=== PATIENT | male | born 1960 | race Caucasian/White ===

== ENCOUNTER 2022-09-20 19:57 | Outpatient (OUT) | payer MEDICARE, SELFPAY | END 2022-09-20 19:58 | PROVIDERS: PCP Internal Medicine; Visit Provider Internal Medicine | DX: G47.33 Obstructive sleep apnea (adult) (pediatric) (principal) | CPT/HCPCS: 95810 ==

== ENCOUNTER 2022-10-31 20:38 | Outpatient (OUT) | payer MEDICARE, SELFPAY | END 2022-10-31 20:39 | disposition home or self-care (01) | LOC: SLEEP 20:38 | PROVIDERS: PCP Internal Medicine; Visit Provider Internal Medicine | DX: G47.33 Obstructive sleep apnea (adult) (pediatric) (principal) | CPT/HCPCS: 95811 ==

== ENCOUNTER 2023-04-05 11:14 | Outpatient (OUT) | payer MEDICARE, SELFPAY ==
[2023-04-05 11:35] LABS: Basophils Absolute Auto 0.1 10^3/uL (0.0-0.1); Basophils Percent Auto 0.6 % (0.2-2.0); Eosinophils Absolute Auto 0.2 10^3/uL (0.0-0.7); Eosinophils Percent Auto 1.4 % (0.9-7.0); Hemoglobin 15.7 g/dL (14.0-18.0); Immature Granulocytes Abs Auto 0.05 10^3/uL (0.00-0.03); Immature Granulocytes Pct Auto 0.4 % (0.0-0.5); Lymphocytes Absolute Auto 2.5 10^3/uL (1.2-3.8); Lymphocytes Percent Auto 20.8 % (20.5-60.0); Mean Corpuscular HGB Conc 32.7 g/dL (29.9-35.2); Mean Corpuscular Hemoglobin 34.2 pg (25.9-34.0); Mean Corpuscular Volume 104.6 fL (80.0-94.0); Mean Platelet Volume 10.4 fL (9.5-13.5); Monocytes Absolute Auto 0.9 10^3/uL (0.3-0.8); Monocytes Percent Auto 7.7 % (1.7-12.0); Neutrophils Absolute Auto 8.4 10^3/uL (1.4-6.5); Neutrophils Percent Auto 69.1 % (43.0-75.0); Platelet Count 226 10^3/uL (150-450); Red Blood Count 4.59 10^6/uL (4.70-6.10); Red Cell Distribution Width 12.8 % (11.0-15.0); White Blood Count 12.1 10^3/uL (4.0-11.0)
[2023-04-05 11:57] LABS: Anion Gap 14.3; BUN Creatinine Ratio 28.2; Calcium 9.8 mg/dL (8.5-10.1); Carbon Dioxide 24.3 mmol/L (21.0-32.0); Chloride 101 mmol/L (98-107); Estimated GFR (African America >60 (>=60); Estimated GFR (Non-African Ame 55 (>=60); Glucose 123 mg/dL (74-106); Potassium 4.6 mmol/L (3.5-5.1); Sodium 135 mmol/L (136-145)
== END 2023-04-05 11:15 | disposition home or self-care (01) ==
LOC: LAB 11:16
PROVIDERS: PCP Internal Medicine; Visit Provider Internal Medicine
DX: D62 Acute posthemorrhagic anemia (principal); I25.10 Atherosclerotic heart disease of native coronary artery without angina pectoris
CPT/HCPCS: 36415; 80048; 85025

== ENCOUNTER 2023-11-21 08:25 | Outpatient (OUT) | payer MEDICARE, SELFPAY ==
--- OUTSIDE RECORDS SUMMARY | 2023-11-21 08:46 | XMS_ITS | CCD ---
Author Organization [facility] Care Team Providers Care Information Technology Manager Name Role Phone Pcp, No Primary Care Provider UnavailColeman Santoyo DO Primary Care Provider Sarai Mendez II Unavailable Jonathan Samano Unavailable Melinda Verduzco Unavailable DO Coleman Brower Primary Care Provider MD Sarai Mendez II Attending Provider DO Coleman Brower Attending Provider DO Coleman Brower Primary Care Provider DO Coleman Brower Attending Provider MD Chio Nichole Attending Provider [phone] Chio Nichole Unavailable DO Coleman Brower Primary Care Provider MD Jonathan Samano Attending Provider DO Coleman Brower Primary Care Provider STEPHEN Guzman Emergency Provider Coleman Brower Unavailable DO Coleman Brower Primary Care Provider MD Jonathan Samano Attending Provider [phone] STEPHEN Guzman Emergency Provider RASHAD Verduzco Attending Provider Jonathan Shrestha Unavailable DR COLEMAN BROWER Attending Unavailable BALL, DR BURKS Primary Care Unavailable BALL, DR BURKS Admitting Unavailable INOCENTE, DR BURKS Primary Care Unavailable MISC, DR JERNIGAN Consulting Unavailable INOCENTE, DR BURKS Admitting Unavailable INOCENTE, DR BURKS Attending Unavailable BALL, DR BURKS Consulting Unavailable BALL, DR BURKS Primary Care Unavailable BALL, DR BURKS Admitting Unavailable BALL, DR BURKS Attending Unavailable BALL, DR BURKS Primary Care Unavailable BALL, DR BURKS Admitting Unavailable BALL, DR BURKS Attending Unavailable Ball, DO Coleman Primary Care Provider MD Sarai Mendez II Attending Provider MD Jonathan Samano Attending Provider Ball, DO Coleman Primary Care Provider MD Sarai Georges Attending Provider LOWELL Holbrook Emergency Provider Ball, DO Coleman Primary Care Provider MD Sarai Mendez II Attending Provider Melinda Verduzco CNP Unavailable Ball DO, Coleman E Primary Care Provider Ball, DO Coleman Primary Care Provider MD Sarai Mendez II Attending Provider Ball, DO Coleman Primary Care Provider MD Sarai Mendez II Attending Provider Sukhjinder Montesinos Unavailable Ball DO, Coleman E Primary Care Provider Ball, DO Coleman Primary Care Provider MD Sarai Mendez II Attending Provider RASHAD Verduzco Attending Provider CHHAYA WHATLEY Referring Unavailable BALL, COLEMAN E Primary Care Unavailable BALL, COLEMAN E Primary Care Unavailable DAVID DWYER Attending Unavailable THERESA PRAKASH Attending Unavailabl THERESA Melgar Referring Unavailabl e BALL, COLEMAN E Primary Care Unavailable SARAI VELASCO Attending Unavailable BALL, COLEMAN E Referring Unavailable BALL, COLEMAN E Primary Care Unavailable Ball, DO Coleman Primary Care Provider MD Sarai Mendez II Attending Provider RASHAD Verduzco Attending Provider PROVIDER, UNKNOWN Referring Unavailable BALL, COLEMAN E Primary Care Unavailable Ball DO, Coleman E Primary Care Provider MD Antonio Mora Attending Provider MD Antonio Mora Referring Provider Ball DO, Coleman E Primary Care Provider Ball, DO Coleman Primary Care Provider MD Erin Suresh Emergency Provider MD Elliott Talley Admit Provider MD Elliott Talley Attending Provider [phone] MD Sally Alex Attending Provider Ball DO, Coleman E Primary Care Provider BALL, COLEMAN E Primary Care Unavailable BALL, COLEMAN E Primary Care Unavailable MIRIAM HELADIO Attending Unavailable BALL, COLEMAN E Primary Care Unavailable MIRIAM, HELADIO Referring Unavailable MIRIAMMARIHELADIO Attending Unavailable BALL, COLEMAN E Primary Care Unavailable MIRIAM, HELADIO Referring Unavailable MIRIAM, HELADIO Attending Unavailable BALL, COLEMAN E Primary Care Unavailable BALL, COLEMAN E Primary Care Unavailable MIRIAM, HELADIO Referring Unavailable BALL, COLEMAN E Primary Care Unavailable MIRIAM, HELADIO Referring Unavailable SANTOS ACBRERA Attending Unavailable Andrea MULLINS, Sarai Antunez Attending Unavailabl e Andrea II, Sarai Antunez Admitting Unavailabl e Ball, Coleman Primary Care Unavailable Damien Holbrook Admitting Unavailable Damien Holbrook Attending Unavailable Ball, Coleman Primary Care Unavailable Andrea II, Sarai Antunez Attending Unavailabl e [place] II, Sarai Antunez Admitting Unavailabl e Ball, Coleman Primary Care Unavailable Andrea HARPREET, Sarai Antunez Attending Unavailabl e Andrea II, Sarai Antunez Admitting Unavailabl e Ball, Coleman Primary Care Unavailable Melinda Verduzco Admitting Unavailable Melinda Verduzco Attending Unavailable Ball, Coleman Primary Care Unavailable Ball, Coleman Primary Care Unavailable Sarai Georges Admitting Unavailable Sarai Georges Attending Unavailable Andrea II, Sarai Antunez Attending Unavailabl e [place] II, Sarai Antunez Admitting Unavailabl e Ball, Coleman Primary Care Unavailable AndreaSarai velasquez II M Attending Unavailabl e Andrea II, Sarai Antunez Admitting Unavailabl e Ball, Coleman Primary Care Unavailable Traboulssi, Mourhaf Admitting Unavailable Traboulssi, Mojoellef Attending Unavailable Traboulssi, Mourhaf Referring Unavailable Ball, Coleman Primary Care Unavailable Andrea MULLINS, Sarai Antunez Attending Unavailabl e [place] II, Sarai Antunez Admitting Unavailabl e Ball, Coleman Primary Care Unavailable Sally Alex Attending Unavailable DoamekpElliott alvarez Admitting Unavailab le Ball, Coleman Primary Care Unavailable Andrea II, Sarai Antunez Attending Unavailabl e [place] II, Sarai Antunez Admitting Unavailabl e Ball, Coleman Primary Care Unavailable TRABOULSSI, MOJOELLEF Attending Unavailable BALL, COLEMAN E Primary Care Unavailable TRABOULSSI, MOURHAF Referring Unavailable BALL, COLMEAN E Primary Care Unavailable TRABOULSSI, MOURHAF Attending Unavailable TRABOULSSI, MOURHAF Referring Unavailable BALL, OCLEMAN E Primary Care Unavailable Inocente, DO Coleman Primary Care Provider Allergies Allergy Classification Reported Allergen(s) Allergy Type Date of Onset Reaction(s) Facility (20 sources) Acetaminophen / oxyCODONE Drug Allergy Unknown [facility] [employer] Other (20 sources) atorvastatin Drug Allergy 05-07-19 24 Unknown, Unknown Reaction [facility] (20 sources) predniSONE; 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: [prednisone] Drug Allergy 01-27-20 23 Other, Headache [facility] (20 sources) Simvastatin Drug Allergy 01-02-20 13 Unknown [facility] [employer] Other (1 source) patient allergy list reviewed by nurse or physicia Propensity to adverse reactions 02-18-20 13 Comment:Done [facility] [employer] Other (4 sources) Acetaminophen; 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: [acetaminophen] Drug Allergy 05-07-19 Unknown Reaction [facility] (4 sources) oxyCODONE; 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: [oxycodone] Drug Allergy 05-07-19 Unknown Reaction [facility] (1 source) atorvastatin Drug Allergy 05-07-19 [facility] Repository Medications Current Medications Medication Drug Class(es) Dates Sig (Normalized) Sig (Original) 0.5 ML semaglutide 0.5 MG/ML Auto-Injector [Wegovy] (15 sources) Start: 10-03-2022 Start: 10-03-2022 inject 0.5 mL by sub cutaneous injection every week Wegovy 0.25 MG/0.5ML 0.5 mL Subcutaneous weekly for 30 days Sep, Active acetaminophen 500 mg oral tablet (20 sources) Start: 01-31-2023 take 2 tablets by mouth every eight hours for pain Acetaminophen 500 MG 2 tablets for pain Orally every 8 hrs for 30 days Med to Bed Upon Discharge DOS: 02/13/2023 Jan, Active Start: 06-17-2021 take 2 tablets by mo uth every eight hours for pain Acetaminophen 500 MG 2 tablets for pain Orally every 8 hrs for 30 days MED TO BED UPON DISCHARGE. DOS: 07/04/2021 Jun, Active Start: 01-29-2017 End: 02-13-2023 Acetaminophen (Tylenol Arthr itis Pain) 650 mg Tablet Extended Release Discontinued 1300 MG PO Twice daily January 29, 2017 12:00am February 13, 2023 10:43am AeroChamber Mini Chamber - (8 sources) Start: 08-25-2022 Start: 08-25-2022 AeroChamber Mi ni Chamber - Use w/ Albuterol MDI inhaled every 6 hours as needed for 30 days August, Active allopurinol 100 mg oral tablet (20 sources) Xanthine Oxidase Inhibitor Start: 06-20-2021 take 100 mg by mouth once daily in the morning Allopurinol Active 100 MG PO Every morning June 20, 2021 12:00am Comment on above: Take 1 tablet by milton th every afternoon. amoxicillin 500 mg oral capsule (4 sources) Penicillin-class Antibacterial Start: 12-19-2018 Amoxicillin 500 MG 6 po 1 hour prior to dental and 3 po 6 hours after dental Orally as directed for 1 day Dec, Active apixaban 5 mg oral tablet (20 sources) Factor Xa Inhibitor Start: 06-24-2023 take 1 tablet by mouth once daily at bedtime ELIQUIS 5 mg tab(s) TAKE 1 TABLET BY MOUTH EVERY MORNING AND BEFORE BEDTIME FOR 30 DAYS 0 06/24/2023 Active Start: 05-18-2023 take 5 mg by mouth twice daily Apixaban Active 5 MG PO Twice daily June 28, 2023 12:00am Start: 05-18-2023 take 1 tablet by milton th in the morning, then take 1 tablet by mouth at bedtime ELIQUIS 5 mg tablet Take 1 tablet (5 mg total) by mouth in the morning and 1 tablet (5 mg total) before bedtime. 0 05/18/2023 Active take 1 tablet by milton th every twelve hours Eliquis 5 MG 1 tablet Orally Twice a day Active Comment on above: TAKE 1 TABLET BY MILTON TH EVERY MORNING AND BEFORE BEDTIME FOR 30 DAYS Aspir-81 (20 sources) Aspir-81 Active Aspir-81 81 MG (20 sources) take 1 tablet by milton th once daily take 1 tablet by mouth once anamaria y Aspir-81 81 MG 1 tablet Orally Once a day Active aspirin 81 mg oral tablet (20 sources) Platelet Aggregation Inhibitor, Nonsteroidal Anti-inflammatory Drug Start: 06-17-2021 take 1 tablet by mouth twice daily Aspirin 81 MG 1 tablet Orally BID for 35 days MED TO BED UPON DISCHARGE. DOS: 07/04/2021 Jun, Active Start: 01-29-2017 take 81 mg by mouth once daily Aspirin Active 81 MG PO Daily January 29, 2017 12:00am Comment on above: Take 81 mg by mouth. atorvastatin 80 mg oral tablet (20 sources) HMG-CoA Reductase Inhibitor Start: 4 take 1 tablet by mouth once daily in the evening Atorvastatin Active 0 .ROUTE .COMPLEX 90 September 19, 2023 12:53pm TAKE 1 TABLET BY MOUTH ONCE EVERY EVENING Start: 01-29-2017 End: 09-19-2023 take 1 tablet by mouth once daily at bedtime Atorvastatin (Lipitor) 80 mg Tablet Discontinued 80 MG PO Daily at bedtime January 29, 2017 12:00am September 19, 2023 12:53pm End: 01-05-2023 take 1 tablet by mouth three times weekly atorvastatin 10 mg tablet Take 10 mg by mouth 3 times a WEEK. 0 01/05/2023 Discontinued (Course of therapy completed) Comment on above: Take 10 mg by mouth 3 times a WEEK. cefadroxil 500 mg oral capsule (10 sources) Cephalosporin Antibacterial Start: 3 take 1 capsule by mouth every twelve hours Cefadroxil 500 MG 1 tablet Orally every 12 hrs for 7 days Med to Bed Upon Discharge DOS: 02/13/2023 Jan, Active Start: 06-17-2021 take 1 capsule by mo [facility] every twelve hours Cefadroxil 500 MG 1 tablet Orally every 12 hrs for 7 days MED TO BED UPON DISCHARGE. DOS: 07/04/2021 Jun, Active cholecalciferol 0.05 mg oral tablet (1 source) Vitamin D Start: 08-02-2023 take 1 tablet by mouth once Cholecalciferol (Vitamin D3) (D3 Dots) 50 mcg (2,000 unit) tablet Active 50 MCG PO every Sunday and July 12:00am codeine phosphate 2 mg/ml / guaiFENesin 20 mg/ml oral solution (2 sources) Opioid Agonist Start: 08-25-2022 take 10 mL by mouth once at bedtime as needed for cough guaiFENesin-Codeine 100-10 MG/5ML 10 mL as needed Orally q HS as needed for cough for 7 days August, Active colchicine 0.6 mg oral capsule (14 sources) Start: 08-02-2023 take 0.6 mg by mouth every other day Colchicine Active 0.6 MG PO .every other day August 02, 2023 12:00am Start: 08-02-2023 take 0.6 mg by mouth once anamaria y Colchicine Active 0.6 MG PO Daily August 02, 2023 12:00am Start: 07-05-2023 take 1 tablet by milton twice daily colchicine 0.6 mg tablet Indications: Idiopathic chronic gout of multiple sites without tophus Take 1tab by mouth up to twice a day as tolerated. May cause diarrhea. 60 tablet 3 07/05/2023 Active Start: 02-07-2010 take 1 tablet by milton once daily colchicine 0.6 mg ORAL tablet Indications: Pseudogout , Knee pain , Knee swelling Take one(1) tablet daily. 60 Tab 0 02/07/2010 Active Comment on above: Take one(1) tablet d aily. Take 1tab by mouth u p to twice a day as tolerated. May cause diarrhea. docusate sodium 50 mg / sennosides, snf 8.6 mg oral tablet (10 sources) Start: 01-31-2023 take 2 tablets by mouth every twenty-four hours Senokot S 8.6-50 MG 2 tablets Orally Once a day for 30 days Med to Bed Upon Discharge DOS: 02/13/2023 Jan, Active Start: 06-17-2021 take 2 tablets by mo uth every twenty-four hours Senokot S 8.6-50 MG 2 tablets Orally Once a day for 30 day(s) MED TO BED UPON DISCHARGE. DOS: 07/04/2021 Jun, Active doxycycline hyclate 100 mg oral capsule (20 sources) Tetracycline-class Drug Start: 03-29-2023 take 1 capsule by mouth every twelve hours Doxycycline Hyclate 100 MG 1 capsule Orally Twice a day for 7 days Mar, Active Start: 03-07-2023 [facility] Doxycycline Hyclate 100 MG 1 tablet Orally Twice a day for 14 days Feb, Active Start: 10-25-2022 take 1 capsule by mo uth twice daily Doxycycline Hyclate 100 MG 1 capsule Orally twice daily for 10 days Jan, Active Start: 05-29-2022 take 1 capsule by mo uth twice daily Doxycycline Hyclate 100 MG 1 capsule Orally twice daily for 7 days August, Active ergocalciferol 1.25 mg oral capsule (20 sources) Provitamin D2 Compound Start: 07-09-2023 ergocalciferol 50,00 0 unit capsule (VITAMIN D2, DRISDOL) Indications: Vitamin D deficiency (take by mouth with food twice a week, ONE CAPSULE ON SUNDAY AND ONE ON SUNDAY) FOR A TOTAL OF 8 WEEKS. 16 capsule 0 07/09/2023 Active Start: 11-22-2022 take 1 capsule by mo uth every week as needed Ergocalciferol 1.25 MG (01128 UT) 1 capsule Orally Once a Week for 60 days Nov, Not-Taking/PRN Start: 03-25-2021 take 1 capsule by mo uth every week Vitamin D (Ergocalciferol) 1.25 MG (30147 UT) 1 capsule Orally once weekly for 8 weeks Mar, Active Comment on above: (take by mouth with food twice a week, ONE CAPSULE ON SUNDAY AND ONE ON SUNDAY) FOR A TOTAL OF 8 WEEKS. escitalopram 20 mg oral tablet (20 sources) Serotonin Reuptake Inhibitor Start: take 20 mg by mouth once daily Escitalopram Oxalate Active 20 MG PO Daily 90 June 29, 2023 10:35am Start: 06-28-2023 End: 06-29-2023 take 1 tablet by mouth once daily Escitalopram Oxalate Discontinued 0 .ROUTE .COMPLEX June 28, 2023 3:06pm June 29, 2023 10:36am TAKE 1 TABLET BY MOUTH EVERY DAY FOR 90 DAYS Start: 08-09-2022 End: 06-28-2023 take 10 mg by mouth once daily at bedtime Escitalopram Oxalate Discontinued 10 MG PO Daily at bedtime January 26, 2023 12:00am June 28, 2023 3:07pm Comment on above: Take 1 tablet by milton th every afternoon. famotidine 20 mg oral tablet (11 sources) Histamine-2 Receptor Antagonist take 1 tablet by mouth every twenty-four hours Famotidine 20 MG 1 tablet at bedtime as needed Orally Once a day Active guaiFENesin-Codeine 200-10 MG/5ML (17 sources) take 10 mL by mouth every six hours as needed for cough take 10 mL by mouth every six hours as needed for cough guaiFENesin-Codeine 200-10 MG/5ML 10 mL as needed Orally every 6 hours as needed for cough for 7 days Not-Taking take 10 mL by mouth every six hours as needed for cough guaiFENesin-Codeine 200-10 MG/5ML 10 mL as needed Orally every 6 hours as needed for cough for 7 days Active hydroCHLOROthiazide 25 mg / spironolactone 25 mg oral tablet (20 sources) Thiazide Diuretic, Aldosterone Antagonist Start: 01-02-2023 take 1 tablet by mouth once daily in the morning spironolactone-hctz 25/25 (ALDACTAZIDE) 25-25 mg per tablet Take 1 tablet by mouth every morning. 0 01/25/2023 Active Comment on above: Take 1 tablet by milton th every morning. levothyroxine sodium 0.15 mg oral tablet (20 sources) l-Thyroxine Start: 06-20-2021 take 1 tablet by mouth once daily in the morning Levothyroxine (Synthroid) 150 mcg tablet Active 150 MCG PO Every morning June 20, 2021 12:00am Start: 01-29-2017 End: 06-20-2021 take 1 tablet by mouth once daily Levothyroxine (Synthroid) 25 mcg Tablet Discontinued 25 MCG PO Daily January 29, 2017 12:00am June 20, 2021 1:26pm take 1 tablet by milton th in the morning levothyroxine (SYNTHROID, LEVOTHROID) 200 MCG tablet Take 1 tablet (200 mcg total) by mouth in the morning. 0 Active take 1 tablet by milton th once daily Levothyroxine Sodium 150 MCG TAKE 1 TABLET BY MOUTH EVERY DAY Active End: 01-05-2023 take 1 tablet by mouth once daily levothyroxine (SYNTHROID) 175 mcg tablet Take 175 mcg by mouth once daily. 0 01/05/2023 Discontinued (Course of therapy completed) take 1 tablet by milton th every twenty-four hours Comment on above: Take 1 tablet by milton th every afternoon. Take 175 mcg by mout h once daily. Magic Mouthwash (5 sources) Magic Mouthwash Active magnesium oxide 400 mg oral tablet (11 sources) Start: 06-13-2023 magnesium oxide (MAG-OX) 400 mg (241.3 mg magnesium) tablet Take 400 mg by mouth. 0 06/13/2023 Active Start: 05-02-2023 take 1 tablet by milton th every twenty-four hours Magnesium Oxide 400 MG 1 tablet as needed Orally Once a day for 30 days Apr, Active Comment on above: Take 400 mg by mouth . methylPREDNISolone 4 mg oral tablet (20 sources) Corticosteroid Start: 09-05-19 methylPREDNISolone (MEDROL) 4 mg Indications: Elevated sed rate , Elevated C-reactive protein (CRP) , PMR (polymyalgia rheumatica) ([facility]) Day 1=6tabs with food, Day 2=5tabs, Day 3=4tabs, Day 4=3tabs, Day 5=2tabs, Day 6=1tab, No NSAIDs on med 21 tablet 1 09/05/2023 Active Start: 07-05-2023 End: 09-05-2023 take 1 tablet by mouth every other day Methylprednisolone (Medrol) 4 mg tablet Active 4 MG PO Q2D August 01, 2023 12:00am Start: 06-28-2023 methylPREDNISo lone (MEDROL) 4 mg Indications: PMR (polymyalgia rheumatica) ([facility]) , Elevated sed rate , Elevated C-reactive protein (CRP) ALTERNATE 1 TABLET AND 1/2 TABLET BY MOUTH EVERY OTHER DAY 30 tablet 0 06/28/2023 Active Start: 03-05-2023 methylPREDNISo lone (MEDROL) 2 mg tablet Indications: PMR (polymyalgia rheumatica) ([facility]) , Elevated sed rate , Elevated C-reactive protein (CRP) Alternate 4mg and 2mg every other day 60 tablet 1 03/05/2023 Active Start: 11-23-2022 End: 06-06-2023 take 4 mg by mouth once daily in the morning Methylprednisolone Discontinued 4 MG PO Every morning January 26, 2023 12:00am June 06, 2023 2:35pm take 1 tablet by milton th once daily methylPREDNISolone 2 MG 1 tablet w/ food Orally daily for 14 days Active Comment on above: TAKE 1 TABLET BY MILTON TH WITH FOOD DAILY TAKE 1 TABLET BY MILTON TH WITH FOOD DAILY FOR 14 DAYS take 1 tablet by milton th every day with food Alternate 4mg and 2m g every other day ALTERNATE 1 TABLET A ND 1/2 TABLET BY MOUTH EVERY OTHER DAY 4 TABLET BY MOUTH EV RANDOLPH OTHER DAY 24 hr metoprolol succinate 50 mg extended release oral tablet (20 sources) beta-Adrenergic Riri Start: 12-29-2022 take 1 tablet by mouth every hour metoprolol succinate ER (TOPROL XL) 50 mg 24 hr tablet Take 1 tablet by mouth every afternoon. 0 12/29/2022 Active Start: 02-09-2021 take 50 mg by mouth once daily in the morning Metoprolol Succinate Active 50 MG PO Every morning June 20, 2021 12:00am Start: 01-29-2017 End: 06-20-2021 take 1 tablet by mouth once daily Metoprolol Succinate (Toprol Xl) 25 mg Tablet Extended Release 24 Hr Discontinued 25 MG PO Daily January 29, 2017 12:00am June 20, 2021 1:27pm Metoprolol Tartr ate 25 MG (Prior Auth: Rx Ref#:[id number]) Oral for 90 Active Comment on above: Take 1 tablet by milton th every afternoon. morphine sulfate 15 mg extended release oral tablet (10 sources) Opioid Agonist Start: 02-01-2023 take 1 tablet by mouth every twelve hours for pain Morphine Sulfate ER 15 MG 1 tablet for breakthrough pain only Orally every 12 hrs for 5 days Med to Bed Upon Discharge DOS: 02/13/2023 Jan, Active Start: 06-17-2021 take 1 tablet by milton th every twelve hours for pain Morphine Sulfate ER 15 MG 1 tablet for breakthrough pain only Orally every 12 hrs for 5 days MED TO BED UPON DISCHARGE. DOS: 07/04/2021 Jun, Active omeprazole 40 mg delayed release oral capsule (11 sources) Proton Pump Inhibitor take 1 capsule by mouth once daily Omeprazole 40 MG 1 capsule 30 minutes before morning meal Orally Once a day Active ondansetron 8 mg oral tablet (12 sources) Serotonin-3 Receptor Antagonist Start: take 1 tablet by mouth three times daily as needed for nausea Ondansetron HCl 8 MG 1 tablet as needed for nausea Orally Three times a day for 10 days Med to Bed Upon Discharge DOS: 02/13/2023 Jan, Active Start: 06-17-2021 take 1 tablet by milton th three times daily as needed for nausea Ondansetron HCl 8 MG 1 tablet as needed for nausea Orally TID for 10 days MED TO BED UPON DISCHARGE. DOS: 07/04/2021 Jun, Active oxyCODONE hydrochloride 5 mg oral tablet (10 sources) Opioid Agonist Start: 02-01-2023 take 1 tablet by mouth every four hours as needed for pain oxyCODONE HCl 5 MG 1 tablet as needed for pain Orally every 4 hrs for 10 days Med to Bed Upon Discharge DOS: 02/13/2023 Jan, Active Start: 06-17-2021 take 1 tablet by milton th every four hours as needed for pain oxyCODONE HCl 5 MG 1 tablet as needed for pain Orally every 4 hrs for 10 days MED TO BED UPON DISCHARGE. DOS: 07/04/2021 Jun, Active pantoprazole 20 mg delayed release oral tablet (9 sources) Proton Pump Inhibitor Start: 01-31-2023 take 1 tablet by mouth every twenty-four hours Protonix 20 MG 1 tablet Orally Once a day for 30 days Jan, Active paxlovid (300/100) 20 x 150 mg & 10 x 100mg tablet therapy pack (2 sources) Start: 04-12-2023 Paxlovid (300/100) 20 x 150 MG & 10 x 100MG as directed Orally bid for 5 days Apr, Active polyethylene glycol 3350 45427 mg powder for oral solution (10 sources) Osmotic Laxative Start: 01-31-2023 MiraLax 17 GM 1 packet mixed with 8 ounces of fluid Orally Once a day for 7 days Med to Bed Upon Discharge DOS: 02/13/2023 Jan, Active Start: 06-17-2021 MiraLax 17 GM 1 packet mixed with 8 ounces of fluid Orally Once a day for 7 days MED TO BED UPON DISCHARGE. DOS: 07/04/2021 Jun, Active predniSONE 20 mg oral tablet (13 sources) Start: 08-01-2022 take 1 tablet by mouth once daily predniSONE 20 MG 1 tablet Orally Daily w/ food for 7 days Jul, Active predniSONE Activ e rivaroxaban 10 mg oral tablet (16 sources) Factor Xa Inhibitor Start: 01-31-2023 End: 03-05-2023 take 1 tablet by mouth every twenty-four hours Xarelto 10 MG 1 tablet with food Orally Once a day for 35 days Med to Bed Upon Discharge DOS: 02/13/2023 Jan, Active Xarelto Active Comment on above: TAKE 1 TABLET BY MILTON TH ONCE A DAY WITH FOOD sildenafil 100 mg oral tablet (20 sources) Phosphodiesterase 5 Inhibitor Start: take 100 mg by mouth once daily Sildenafil Active 100 MG PO Daily June 28, 2023 12:00am Start: 10-03-2022 take 1 tablet by milton th once daily as needed Sildenafil Citrate 100 MG 1 tablet as needed Orally Once a day as needed for 30 days Sep, Active traMADol hydrochloride 50 mg oral tablet (10 sources) Opioid Agonist Start: 02-01-2023 take 1 tablet by mouth every six hours as needed for pain traMADol HCl 50 MG 1 tablet as needed for pain Orally every 6 hrs for 10 days Med to Bed Upon Discharge DOS: 02/13/2023 Jan, Active Start: 06-17-2021 take 1 tablet by milton th every six hours as needed for pain traMADol HCl 50 MG 1 tablet as needed for pain Orally every 6 hrs for 10 days MED TO BED UPON DISCHARGE. DOS: 07/04/2021 Jun, Active valACYclovir 500 mg oral tablet (20 sources) Herpesvirus Nucleoside Analog DNA Polymerase Inhibitor, Herpes Simplex Virus Nucleoside Analog DNA Polymerase Inhibitor, Herpes Zoster Virus Nucleoside Analog DNA Polymerase Inhibitor Start: 06-20-2021 take 500 mg by mouth once daily in the morning Valacyclovir Active 500 MG PO Every morning June 20, 2021 12:00am Comment on above: Take 1 tablet by milton every afternoon. Completed/Discontinued Medications Medication Drug Class(es) Dates Sig (Normalized) Sig (Original) acetaminophen 325 mg / oxyCODONE hydrochloride 5 mg oral tablet (20 sources) Opioid Agonist Start: 05-22-2022 End: 01-26-2023 take 1 tablet by mouth every eight hours Oxycodone-Acetamin ophen (Percocet) 5-325 mg tablet Discontinued 1 TAB PO Q8H 10 May 22, 2022 January 26, 2023 11:02am [id number] 200 actuat albuterol 0.09 mg/actuat metered dose inhaler (20 sources) beta2-Adrenergic Agonist Start: 06-28-2023 End: 08-02-2023 take 1 puff(s) by inhalation every six hours Albuterol Sulfate Discontinued 2 PUFF INHALATION Every 6 hours June 28, 2023 12:00am August 02, 2023 9:18am Start: 09-16-2022 take 2 puff(s) by mo uth every six hours albuterol HFA (PROVENTIL HFA, VENTOLIN HFA) 90 mcg/actuation inhaler inhale 2 puffs by mouth every 6 hours 0 09/16/2022 Active Start: 08-25-2022 take 2 puff(s) by in halation every six hours Albuterol Sulfate HFA 108 (90 Base) MCG/ACT 2 puffs Inhalation every 6 hours for 30 days August, Active Start: 08-25-2022 take 2 puff(s) by mo uth every six hours Albuterol Sulfate HFA 108 (90 Base) MCG/ACT INHALE 2 PUFFS BY MOUTH EVERY 6 HOURS for 25 Active Comment on above: inhale 2 puffs by mo uth every 6 hours ALPRAZolam 0.5 mg oral tablet (20 sources) Benzodiazepine Start: 12-13-19 End: 06-04-19 take 0.5 mg by mouth once daily at bedtime Alprazolam Discontinued 0.5 MG PO Daily at bedtime June 04, 2023 1:00am June 04, 2023 1:22pm Start: 06-09-2022 ALPRAZolam 0.5 MG TAKE 1 TABLET BY MOUTH EVERY DAY AT BEDTIME Orally Once A Day for 90 days Jun, Active Start: 04-16-2022 take 1 tablet by milton th once daily at bedtime ALPRAZolam 0.5 MG TAKE 1 TABLET BY MOUTH EVERY DAY AT BEDTIME for 30 Apr, Active Start: 10-25-2012 End: 06-04-2023 take 1 tablet by mouth once daily at bedtime Alprazolam (Xanax) 0.25 mg Tablet Discontinued 0.25 MG PO Daily at bedtime January 29, 2017 12:00am June 04, 2023 1:08pm Comment on above: Take 0.5 mg by mouth daily at bedtime. Take 1 tablet by milton th at bedtime as needed. amoxicillin 875 mg / clavulanate 125 mg oral tablet (4 sources) Penicillin-class Antibacterial Start: 4 End: 4 take 1 tablet by mouth twice daily Amoxicillin-Pot Clavulanate Discontinued 1 TAB PO Twice daily 14 September 01, 2023 10:30am November 19, 2023 2:23pm atenolol 25 mg oral tablet (1 source) beta-Adrenergic Riri Start: 3 End: 3 take 1 tablet by mouth once daily atenolol 25 mg tablet Take 1 tablet by mouth once daily. 0 10/25/2012 01/05/2023 Discontinued (Course of therapy completed) Comment on above: Take 1 tablet by milton th once daily. celecoxib 200 mg oral capsule (20 sources) Nonsteroidal Anti-inflammatory Drug Start: 2 End: 4 take 200 mg by mouth once daily Celecoxib Discontinued 200 MG PO Daily June 28, 2023 12:00am June 28, 2023 4:15pm Start: 06-17-2021 take 1 capsule by mo [facility] every twelve hours Celecoxib 200 MG 1 capsule with food Orally Twice a day for 30 day(s) MED TO BED UPON DISCHARGE. DOS: 07/04/2021 Jun, Active Comment on above: Take 1 capsule by mo [facility] every afternoon. clopidogrel 75 mg oral tablet (4 sources) [id number] Platelet Inhibitor End: 03-05-20 23 take 1 tablet by mouth once daily clopidogrel (PLAVIX) 75 mg ORAL tablet Take one(1) tablet daily. 0 03/05/2023 Discontinued (Course of therapy completed) Comment on above: Take one(1) tablet d aily. diazePAM 5 mg oral tablet (20 sources) Benzodiazepine Start: 06-28-19 End: 08-02-19 take 5 mg by mouth once daily Diazepam Discontinued 5 MG PO Daily June 28, 2023 12:00am August 02, 2023 9:17am Start: 06-12-2022 Valium 5 MG ta ke 1 tablet 1/2 hour prior to MRI . May repeat if needed. Orally Jun, Active take 1 tablet by milton th every twenty-four hours diazePAM 5 MG 1 tablet as needed Orally Once a day Active hydroCHLOROthiazide 25 mg / triamterene 37.5 mg oral capsule (20 sources) Potassium-sparing Diuretic, Thiazide Diuretic Start: 06-20-2021 End: 06-28-2023 take 1 capsule by mouth once daily in the morning Triamterene-Hydrochlorothiazid Discontinued 1 CAP PO Every morning June 20, 2021 12:00am June 28, 2023 4:16pm take 1 capsule by mouth every tw enty-four hours Comment on above: TAKE 1 CAPSULE BY MO [facility] EVERY DAY IN THE MORNING FOR 30 DAYS irbesartan 150 mg oral tablet (20 sources) Angiotensin 2 Receptor Riri Start: 2 End: 4 take 150 mg by mouth once daily in the morning Irbesartan Discontinued 150 MG PO Every morning June 20, 2021 12:00am June 28, 2023 4:16pm lisinopril 10 mg oral tablet (20 sources) Angiotensin Converting Enzyme Inhibitor Start: 7 End: 2 take 10 mg by mouth once daily Lisinopril Discontinued 10 MG PO Daily January 29, 2017 12:00am June 20, 2021 1:24pm take 1 tablet by milton th every twenty-four hours Lisinopril 20 MG 1 tablet Orally Once a day Active meloxicam 7.5 mg oral tablet (4 sources) Nonsteroidal Anti-inflammatory Drug Start: 11-17-2013 End: 03-05-2023 take 1 tablet by mouth once daily meloxicam 7.5 mg tablet Take 1 tablet by mouth once daily. 30 tablet 1 11/17/2013 03/05/2023 Discontinued (Course of therapy completed) Comment on above: Take 1 tablet by mouth once daily. mupirocin 0.02 mg/mg topical ointment (20 sources) RNA Synthetase Inhibitor Antibacterial Start: 06-28-2023 End: 08-02-2023 Mupirocin Discontinued 1 APPLIC TOPICAL Twice daily June 28, 2023 12:00am August 02, 2023 9:18am Start: 10-25-2022 Mupirocin 2 % 1 application Externally Twice a day for 10 days Jan, Active triamcinolone acetonide 40 mg/ml injectable suspension (20 sources) Corticosteroid Start: 08-22-2022 Kenalog-40 August, 60 mg Start: 09-12-2021 Kenalog-40 Feb, 40 mg Start: 09-12-2021 Start: 05-23-2021 Start: 05-23-2021 Kenalog -40 mg May, 40 mg Start: 05-07-2020 Start: 05-07-2020 Kenalog -40 mg Apr, 40 mg Start: 11-03-2019 Start: 11-03-2019 Kenalog -40 mg Oct, 40 mg Start: 05-19-2019 Start: 05-19-2019 Kenalog -40 mg May, 10 mg Start: 04-08-2018 Start: 04-08-2018 Kenalog -40 mg Mar, 40 mg Start: 04-16-2017 Start: 04-16-2017 Kenalog -40 mg Apr, Start: 05-23-2016 Start: 05-23-2016 Kenalog -40 mg May, Problems Active Problems Problem Classification Problem Date Documented Da te Episodic/Chronic Abdominal pain (20 sources) Indigestion; 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: [Epigastric pain] Onset: 7 Episodic Acute bronchitis (6 sources) Acute bronchitis due to other specified organisms; 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: [Acute bronchitis] Onset: 5 Episodic Acute posthemorrhagic anemia (1 source) Acute posthemorrhagic anemia Episodic Anxiety disorders (20 sources) Generalized anxiety disorder; 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: [Generalized anxiety disorder] 06-04-2023 Chronic Blindness and vision defects (1 source) Visual impairment; 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: [Unspecified visual loss] Chronic Cardiac dysrhythmias (20 sources) Persistent atrial fibrillation; 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: [Other persistent atrial fibrillation] Onset: 4 Resolved: 4 06-04-2023 Chronic Chronic ulcer of skin (1 source) Non-pressure chronic ulcer of unspecified part of unspecified lower leg with unspecified severity Chronic Complication of device; implant or graft (10 sources) Arteriosclerosis of autologous vein coronary artery bypass graft; 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: [Atherosclerosis of coronary artery bypass graft(s) without angina pectoris] Onset: 5 Resolved: 2 12-26-2017 Chronic Conditions associated with dizziness or vertigo (9 sources) Meniere's disease; 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: [Meniere's disease, bilateral] Chronic Coronary atherosclerosis and other heart disease (20 sources) Coronary arteriosclerosis; 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: [Atherosclerotic heart disease of [place] coronary artery without angina pectoris] Onset: 4 10-29-2013 Chronic Deficiency and other anemia (1 source) Anemia of chronic disease; 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: [Anemia in other chronic diseases classified elsewhere] 01-05-2023 Chronic Deficiency and other anemia (1 source) Anemia in other chronic diseases classified elsewhere; 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: [Anemia of chronic disease] Onset: 3 Chronic Diseases of mouth; excluding dental (1 source) Glossitis Episodic Disorders of lipid metabolism (20 sources) Hyperlipidemia; 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: [Hyperlipidemia, unspecified] Onset: 4 10-29-2013 Chronic Diverticulosis and diverticulitis (13 sources) Diverticulitis of gastrointestinal tract; 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: [Diverticulitis of intestine] Onset: 4 08-30-2023 Chronic E Codes: Adverse effects of medical drugs (14 sources) Adverse reaction to drug; 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: [Adverse effect of unspecified drugs, medicaments and biological substances, initial encounter] Onset: 4 10-11-2022 Episodic Esophageal disorders (20 sources) Gastro-esophageal reflux disease with esophagitis; 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: [Gastroesophageal reflux disease with esophagitis without hemorrhage] 06-28-2023 Chronic Essential hypertension (20 sources) Essential hypertension; 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: [Essential (primary) hypertension] Onset: 3 Chronic Gout and other crystal arthropathies (20 sources) Calcium pyrophosphate deposition disease; 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: [Other chondrocalcinosis, unspecified site] Onset: 4 10-29-2013 Chronic Headache; including migraine (4 sources) Migraine; 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: [Migraine, unspecified, not intractable, without status migrainosus] 08-30-2023 Chronic Headache; including migraine (13 sources) Headache; 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: [Headache] 10-11-2022 Episodic Heart valve disorders (20 sources) Mitral and aortic incompetence; 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: [Mitral valve insufficiency and aortic valve insufficiency] Onset: 6 Resolved: 2 12-28-2017 Chronic Heart valve disorders (2 sources) Irregular heart beat Onset: 4 Episodic Hyperplasia of prostate (1 source) Benign prostatic hypertrophy with outflow obstruction; 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: [Hypertrophy (benign) of prostate with urinary obstruction and other lower urinary tract symptoms [LUTS]] Onset: 7 Chronic Joint disorders and dislocations; trauma-related (1 source) Current tear of medial cartilage AND/OR meniscus of knee; 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: [Tear of medial cartilage or meniscus of knee, current] Episodic Mood disorders (20 sources) Recurrent major depressive episodes, mild ; 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: [Major depressive disorder, recurrent, mild] Chronic Nausea and vomiting (20 sources) Nausea; 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: [Nausea] 01-30-2017 Episodic Nutritional deficiencies (4 sources) Vitamin D deficiency; 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: [Vitamin D deficiency, unspecified] Onset: 3 01-05-2023 Chronic Osteoarthritis (20 sources) Osteoarthritis; 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: [Unspecified osteoarthritis, unspecified site] Onset: 4 Resolved: 2 10-29-2013 Chronic Osteoporosis (6 sources) Primary osteoporosis; 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: [Age-related osteoporosis without current pathological fracture] Onset: 3 01-05-2023 Chronic Other aftercare (20 sources) Patient encounter status; 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: [Aftercare following joint replacement surgery] 06-05-2023 Chronic Other aftercare (14 sources) Aftercare following joint replacement surgery; 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: [Aftercare following joint replacement] Chronic Other aftercare (2 sources) Long-term current use of drug therapy; 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: [Other meterman (current) drug therapy] Episodic Other aftercare (1 source) Long-term current use of anticoagulant; 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] 07-27-2023 Episodic Other circulatory disease (9 sources) History of cerebrovascular accident without residual deficits; 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: [Personal history of transient ischemic attack (TIA), and cerebral infarction without residual deficits] Episodic Other circulatory disease (1 source) Orthostatic hypotension Episodic Other connective tissue disease (20 sources) History of total knee arthroplasty; 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: [Presence of right artificial knee joint] Chronic Other connective tissue disease (20 sources) Artificial knee joint present; 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: [Presence of right artificial knee joint] Chronic Other connective tissue disease (20 sources) Presence of left artificial hip joint; 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: [S/P total left hip arthroplasty] Onset: 2 Resolved: 2 Chronic Other connective tissue disease (19 sources) Hip joint prosthesis present; 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: [Presence of left artificial hip joint] Chronic Other connective tissue disease (20 sources) Polymyalgia rheumatica; 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: [Polymyalgia rheumatica] Onset: 3 01-05-2023 Chronic Other connective tissue disease (4 sources) Polymyalgia rheumatica; 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: [PMR (polymyalgia rheumatica) (HCC)] Onset: 3 Chronic Other connective tissue disease (20 sources) History of total hip arthroplasty; 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: [Presence of left artificial hip joint] 06-05-2023 Chronic Other connective tissue disease (20 sources) Presence of right artificial hip joint; 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: [Total hip replacement Prosthesis] Onset: 4 Chronic Other connective tissue disease (2 sources) Presence of left artificial knee joint; 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: [Presence of left artificial knee joint] Onset: 4 Chronic Other connective tissue disease (2 sources) Pain in right hand Onset: 2 Resolved: 2 Episodic Other connective tissue disease (3 sources) Myalgia, unspecified site; 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: [MYALGIA UNSPECIFIED SITE] Onset: 3 Episodic Other connective tissue disease (1 source) Pain in left lower leg Episodic Other connective tissue disease (2 sources) Disorder of rotator cuff; 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: [Unspecified rotator cuff tear or rupture of right shoulder, not specified as traumatic] 10-02-2023 Episodic Other connective tissue disease (1 source) Biceps tendinitis; 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: [Bicipital tendinitis, right shoulder] 10-02-2023 Episodic Other connective tissue disease (3 sources) Bicipital tendinitis, right shoulder; 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: [Bicipital tenosynovitis] 10-02-2023 Episodic Other connective tissue disease (2 sources) Unspecified rotator cuff tear or rupture of right shoulder, not specified as traumatic; 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: [Disorders of bursae and tendons in shoulder region, unspecified] 10-02-2023 Episodic Other disorders of stomach and duodenum (1 source) Disorder of function of stomach; 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: [Dyspepsia and other specified disorders of function of stomach] Episodic Other gastrointestinal disorders (20 sources) Irritable bowel syndrome; 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: [Irritable bowel syndrome without diarrhea] Chronic Other gastrointestinal disorders (2 sources) Irritable bowel syndrome with diarrhea; 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: [Irritable bowel syndrome with diarrhea] Onset: 7 Chronic Other gastrointestinal disorders (20 sources) Swallowing painful; 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: [Dysphagia, unspecified] Episodic Other gastrointestinal disorders (1 source) Dysphagia, unspecified Episodic Other gastrointestinal disorders (1 source) Personal history of other diseases of the digestive system; 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: [Personal history of other diseases of digestive system] 11-19-2023 Episodic Other hematologic conditions (17 sources) Macrocytosis; 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: [Other specified diseases of blood and blood-forming organs] Chronic Other hematologic conditions (4 sources) Other specified diseases of blood and blood-forming organs; 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: [OTH SPEC DZ BLOOD AND BLOOD-FORM ORG] Onset: Chronic Other hematologic conditions (6 sources) ESR raised; 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: [Elevated erythrocyte sedimentation rate] 01-05-2023 Episodic Other injuries and conditions due to external causes (2 sources) History of fall; 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: [History of falling] Episodic Other injuries and conditions due to external causes (2 sources) Systemic inflammatory response syndrome; 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: [Systemic inflammatory response syndrome (SIRS) of non-infectious origin without acute organ dysfunction] 08-30-2023 Episodic Other injuries and conditions due to external causes (2 sources) Systemic inflammatory response syndrome (SIRS) of non-infectious origin without acute organ dysfunction; 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: [Systemic inflammatory response syndrome, unspecified] 08-30-2023 Episodic Other liver diseases (1 source) Finding of creatine kinase level; 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: [Abnormal levels of other serum enzymes] 01-05-2023 Episodic Other liver diseases (1 source) Enzyme level - finding; 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: [Abnormal levels of other serum enzymes] 01-05-2023 Episodic Other male genital disorders (8 sources) Erectile dysfunction co-occurrent and due to arterial insufficiency; 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: [Erectile dysfunction due to arterial insufficiency] Chronic Other male genital disorders (1 source) Erectile dysfunction due to arterial insufficiency Chronic Other male genital disorders (1 source) Impotence of organic origin; 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: [Impotence of organic origin] Onset: 7 Chronic Other nervous system disorders (20 sources) Chronic pain; 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: [Other chronic pain] Chronic Other nervous system disorders (7 sources) Other chronic pain; 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: [Other chronic pain G89.29] Onset: 1 Resolved: 1 Chronic Other non-traumatic joint disorders (20 sources) Derangement of left shoulder joint; 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: [Other specific joint derangements of left shoulder, not elsewhere classified] 06-28-2023 Chronic Other non-traumatic joint disorders (4 sources) Other specific joint derangements of left shoulder, not elsewhere classified Chronic Other non-traumatic joint disorders (12 sources) Rotator cuff arthropathy of left shoulder; 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: [Other specific arthropathies, not elsewhere classified, left shoulder] Onset: 3 01-05-2023 Chronic Other non-traumatic joint disorders (4 sources) Pain in right hip; 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: [Right hip pain M25.551] Onset: 1 Resolved: 1 Episodic Other non-traumatic joint disorders (1 source) Pain in left shoulder Episodic Other non-traumatic joint disorders (1 source) Pain in right shoulder Episodic Other non-traumatic joint disorders (2 sources) Arthralgia of the lower leg; 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: [Pain in right knee] Episodic Other non-traumatic joint disorders (2 sources) Pain in unspecified joint Episodic Other non-traumatic joint disorders (1 source) Pain in left knee Episodic Other nutritional; endocrine; and metabolic disorders (20 sources) Obese class II; 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: [Body mass index (BMI) 36.0-36.9, adult] Onset: 6 Chronic Other nutritional; endocrine; and metabolic disorders (13 sources) Severe obesity; 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: [Morbid (severe) obesity due to excess calories] Onset: 2 05-10-2021 Chronic Other nutritional; endocrine; and metabolic disorders (12 sources) Body mass index 30+ - obesity; 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: [Body mass index (BMI) 36.0-36.9, adult] Onset: 6 07-27-2023 Chronic Other nutritional; endocrine; and metabolic disorders (1 source) Morbid (severe) obesity due to excess calories Chronic Other nutritional; endocrine; and metabolic disorders (1 source) Body mass index (BMI) 36.0-36.9, adult Chronic Other nutritional; endocrine; and metabolic disorders (2 sources) Simple obesity ; 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: [Other obesity due to excess calories] Onset: 6 Chronic Other nutritional; endocrine; and metabolic disorders (3 sources) Obese class I; 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: [Body mass index (BMI) 34.0-34.9, adult] Onset: 6 Chronic Other nutritional; endocrine; and metabolic disorders (2 sources) Obesity; 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: [Obesity, unspecified] Chronic Other nutritional; endocrine; and metabolic disorders (14 sources) Hypomagnesemia; 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: [Hypomagnesemia] 06-12-2023 Chronic Other nutritional; endocrine; and metabolic disorders (1 source) Hypomagnesemia Chronic Other nutritional; endocrine; and metabolic disorders (2 sources) Body mass index (BMI) 35.0-35.9, adult; 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: [Body mass index (BMI) 35.0-35.9, adult] Onset: 4 Chronic Other nutritional; endocrine; and metabolic disorders (2 sources) Hyperuricemia; 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: [Hyperuricemia without signs of inflammatory arthritis and tophaceous disease] 01-05-2023 Episodic Other screening for suspected conditions (not mental disorders or infectious disease) (20 sources) Screening status; 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: [Encounter for screening for malignant neoplasm of colon] Onset: 9 Resolved: 4 Episodic Other upper respiratory disease (12 sources) Seasonal allergic rhinitis; 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: [Other seasonal allergic rhinitis] Chronic Other upper respiratory disease (20 sources) Hoarse; 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: [Dysphonia] Episodic Other upper respiratory disease (1 source) Dysphonia Episodic Residual codes; unclassified (20 sources) Obstructive sleep apnea syndrome; 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: [Obstructive sleep apnea (adult) (pediatric)] 12-28-2017 Chronic Residual codes; unclassified (3 sources) Obstructive sleep apnea (adult) (pediatric); 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: [Obstructive sleep apnea (adult)(pediatric)] Chronic Residual codes; unclassified (2 sources) Insomnia; 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: [Insomnia, unspecified] Episodic Residual codes; unclassified (2 sources) Other specified health status; 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: [Other specified health status] Onset: 4 Episodic Rheumatoid arthritis and related disease (20 sources) Inflammatory polyarthropathy; 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: [Inflammatory polyarthropathy] Chronic Septicemia (except in labor) (2 sources) Sepsis; 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: [Sepsis, unspecified organism] 08-30-2023 Episodic Skin and subcutaneous tissue infections (5 sources) Cellulitis of lower limb; 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: [Cellulitis of left lower limb] Episodic Spondylosis; intervertebral disc disorders; other back problems (20 sources) Lumbar spondylosis; 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: [Spondylosis without myelopathy or radiculopathy, lumbar region] Onset: 8 Resolved: 1 Chronic Spondylosis; intervertebral disc disorders; other back problems (19 sources) Cervicalgia; 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: [Spinal stenosis of lumbar region] Onset: 8 Episodic Sprains and strains (11 sources) Strain of muscle(s) and tendon(s) of the rotator cuff of left shoulder, initial encounter; 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: [Strain of muscle of right shoulder] Onset: 6 Episodic Superficial injury; contusion (20 sources) Contusion of shoulder region; 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: [Contusion of left shoulder, initial encounter] 05-22-2022 Episodic Systemic lupus erythematosus and connective tissue disorders (1 source) Autoimmune disease; 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: [Autoimmune disease, not elsewhere classified] Onset: 6 Chronic Thyroid disorders (20 sources) Hypothyroidism; 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: [Hypothyroidism, unspecified] Onset: 4 10-29-2013 Chronic Transient cerebral ischemia (10 sources) Vertebrobasilar territory transient ischemic attack; 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] Onset: 7 12-26-2017 Chronic Unclassified (1 source) Long-term current use of drug therapy; 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: [Long-term (current) use of other medications] Onset: 9 Unclassified (4 sources) Other persistent atrial fibrillation; 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: [Other persistent atrial fibrillation] Onset: 4 Unclassified (1 source) Hospital Follow-up Onset: 4 Unclassified (1 source) Chronic atrial fibrillation, unspecified; 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: [Chronic atrial fibrillation, unspecified] Onset: 4 Unclassified (1 source) Pain in left lower leg; 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: [Pain in left lower leg] Onset: 4 Unclassified (1 source) Pain in left knee; 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: [Pain in left knee] Onset: 4 Unclassified (1 source) Aftercare following joint replacement surgery; 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: [Aftercare following joint replacement surgery] Onset: 4 Unclassified (1 source) Unilateral primary osteoarthritis, right hip; 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: [Unilateral primary osteoarthritis, right hip] Onset: 3 Unclassified (1 source) Encounter for preprocedural laboratory examination; 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: [Encounter for preprocedural laboratory examination] Onset: 3 Unclassified (1 source) Pain in right hip; 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: [Pain in right hip] Onset: 3 Unclassified (1 source) Myalgia, unspecified site; 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: [Myalgia, unspecified site] Onset: 3 Viral infection (2 sources) Molluscum contagiosum infection; 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: [Molluscum contagiosum] Episodic Past or Other Problems Problem Classification Problem Date Documented Da te Episodic/Chronic Complication of device; implant or graft (2 sources) Pain due to internal orthopedic prosthetic devices, implants and grafts, initial encounter; 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: [Pain due to internal orthopedic prosthetic devices, implants and grafts, initial encounter] Onset: 05-21-2023 Episodic Conditions associated with dizziness or vertigo (8 sources) Benign paroxysmal positional vertigo; 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: [Benign paroxysmal vertigo, left ear] Onset: 08-08-2019 08-08-2019 Episodic Congestive heart failure; nonhypertensive (5 sources) Heart failure; 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: [Heart failure, unspecified] Resolved: 10-20-2021 10-20-2021 Chronic Coronary atherosclerosis and other heart disease (2 sources) Presence of aortocoronary bypass graft; 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: [Presence of aortocoronary bypass graft] Onset: 07-27-2023 Episodic Esophageal disorders (6 sources) Esophageal disorders; 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: [Gastro-esophageal reflux disease with esophagitis, without bleeding] Onset: 01-08-2017 Immunizations and screening for infectious disease (16 sources) Vaccination given; 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: [Encounter for immunization] Onset: 01-05-2023 01-05-2023 Episodic Malaise and fatigue (3 sources) Other fatigue; 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: [Malaise and fatigue] Onset: 02-02-2016 Episodic Nutritional deficiencies (3 sources) Cobalamin deficiency; 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: [Deficiency of other specified B group vitamins] Onset: 01-05-2023 01-05-2023 Episodic Open wounds of extremities (2 sources) Puncture wound without foreign body of left index finger without damage to nail, subsequent encounter; 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: [Puncture wound without foreign body of left index finger without damage to nail, subsequent encounter] Resolved: 08-09-2020 Episodic Other aftercare (3 sources) Other meterman (current) drug therapy; 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: [OTH INTERMEDIATE CURRENT DRUG THERAPY] Onset: 08-03-2022 Episodic Other aftercare (12 sources) Long-term current use of systemic steroid; 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: [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] Onset: 01-05-2023 01-05-2023 Episodic Other aftercare (2 sources) 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 manager (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) use of 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; 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: [halfway (current) use of 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] Onset: 07-27-2023 Episodic Other connective tissue disease (1 source) Rupture of tendon of biceps, long head; 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: [Nontraumatic rupture of tendons of biceps (long head)] Onset: 02-02-2016 Episodic Other connective tissue disease (2 sources) Nontraumatic rupture of rotator cuff of left shoulder; 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: [Unspecified rotator cuff tear or rupture of left shoulder, not specified as traumatic] Onset: 06-04-2015 Episodic Other connective tissue disease (12 sources) Pain of bilateral hands; 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: [Pain in right hand] Onset: 01-05-2023 01-05-2023 Episodic Other connective tissue disease (11 sources) Swelling of hand; 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: [Other specified soft tissue disorders] Onset: 01-05-2023 01-05-2023 Episodic Other gastrointestinal disorders (1 source) Diarrhea; 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: [Diarrhea] Onset: 03-15-2017 Episodic Other hematologic conditions (1 source) Elevated erythrocyte sedimentation rate; 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: [Elevated sed rate] Onset: 03-05-2023 Episodic Other liver diseases (2 sources) Abnormal levels of other serum enzymes; 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: [Elevated aldolase level] Onset: 01-05-2023 Episodic Other male genital disorders (2 sources) Hemospermia; 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: [Hematospermia] Onset: 07-10-2016 Episodic Other non-traumatic joint disorders (12 sources) Swelling of knee joint; 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: [Effusion, unspecified knee] Onset: 06-01-2009 Episodic Other non-traumatic joint disorders (2 sources) Pain in left hip; 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: [Left hip pain M25.552] Onset: 01-05-2021 Resolved: 02-22-2021 Episodic Other non-traumatic joint disorders (4 sources) Shoulder joint pain; 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: [Pain in right shoulder] Onset: 06-04-2015 Episodic Other non-traumatic joint disorders (12 sources) Pain in right hip joint; 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: [Pain in right hip] Onset: 01-05-2023 01-05-2023 Episodic Other non-traumatic joint disorders (8 sources) Pain in right knee; 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: [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, lower leg] Onset: 03-05-2023 03-05-2023 Episodic Other nutritional; endocrine; and metabolic disorders (1 source) Hyperuricemia without signs of inflammatory arthritis and tophaceous disease; 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: [Hyperuricemia] Onset: 01-05-2023 Episodic Viral infection (1 source) COVID-19 Results Test Name Value Interpretation Reference Range Facility [facility] 09-09-2023 [facility] Telephone (RADHA) ----- ESME STEVEN ([id number]) 1960 M Date Time Provider Department 09/09/23 HELADIO PINEDA During your visit today, we recorded the following information about you: Heladio Pineda MD 09/09/2023 11:12 AM Signed Please Call patient if MyChart note not read to review results/released to My Chart if tests completed at F: Normal labs and no inflammation.. Recheck nonfasting labs in 1month, orders have been placed. Happy to further review and discuss at follow up visit. Continue rest of treatment plan per instructions at last office visit. Thank you. 09/05/23 normal esr 2, crp 0.8; 08/02/23 in hospital 07/05/23 low vitamin D 21.4;normal esr 15, crp 0.8, ck 52, aldolase 5.3, vitamin b12-685; 06/28/23 bmd WITHIN THE EXPECTED RANGE FOR AGE Lumbar spine (L1, L2, L3, L4): 1.54 g/cm2, Z-score 2.3 Left Forearm, Distal 1/3 of Radius: 1.089 g/cm2, Z-score 1.5 TRABECULAR BONE ASSESSMENT TBS score: 1.412 Bone micro-architecture: Normal (>1.310) Outside 06/12/23 low mag 1.5;high glucose 117;normal cbc, rest of bmp; 04/18/23 in ED for chronic Afib. 03/05/23 normal esr 9, crp<0.3; Precious Hartman MA 09/10/2023 9:27 AM Signed Pt aware. Patient asked regarding Medrol. He says he is to take until completed. I stated yes. He wants to know if he should continue his other medications. I let him know Dr. Pineda didn't stated anything about any changes to his medication. 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 - ELIQUIS 5 mg tab(s) TAKE 1 TABLET BY MOUTH EVERY MORNING AND BEFORE BEDTIME FOR 30 DAYS - magnesium oxide (MAG-OX) 400 mg (241.3 mg magnesium) tablet Take 400 mg by mouth. - valACYclovir (VALTREX) 500 mg tablet Take 1 tablet by mouth every afternoon. - escitalopram oxalate (LEXAPRO) 20 mg tablet Take 1 tablet by mouth every afternoon. - colchicine 0.6 mg tablet Take 1tab by mouth up to twice a day as tolerated. May cause diarrhea. - celecoxib (CELEBREX) 200 mg capsule Take 1 capsule by mouth every afternoon. - spironolactone-hctz 25/25 (ALDACTAZIDE) 25-25 mg per tablet Take 1 tablet by mouth every morning. - albuterol HFA (PROVENTIL HFA, VENTOLIN HFA) 90 mcg/actuation inhaler inhale 2 puffs by mouth every 6 hours - allopurinol (ZYLOPRIM) 100 mg tablet Take 1 tablet by mouth every afternoon. - aspirin, enteric coated (ASPIRIN, ENTERIC COATED) 81 mg EC tablet Take 81 mg by mouth. - irbesartan (AVAPRO) 150 mg tablet - metoprolol succinate ER (TOPROL XL) 50 mg 24 hr tablet Take 1 tablet by mouth every afternoon. - ALPRAZolam (XANAX) 0.5 mg tablet Take 0.5 mg by mouth daily at bedtime. - atorvastatin (LIPITOR) 80 mg tablet - levothyroxine (SYNTHROID) 150 mcg tablet Take 1 tablet by mouth every afternoon. Problem List As Of Date 09/09/2023 Noted Resolved Swelling of Knee Joint [M25.469] 06/01/2009 Pseudogout [M11.20] 10/29/2013 CAD (coronary artery disease) [I25.10] 10/29/2013 OA (osteoarthritis) [M19.90] 10/29/2013 Hyperlipidemia [E78.5] 10/29/2013 Hypothyroidism [E03.9] 10/29/2013 Pain in right hip [M25.551] 01/05/2023 Rotator cuff arthropathy of left shoulder [M12.*01/05/2023 Bilateral hand pain [M79.641, M79.642] 01/05/2023 Secondary osteoarthritis of multiple sites [M15*01/05/2023 Pseudogout involving multiple joints [M11.89] 01/05/2023 PMR (polymyalgia rheumatica) (HCC) [M35.3] 01/05/2023 Idiopathic chronic gout of multiple sites 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 [Z79*01/05/2023 CHENCHO positive [R76.8] 01/05/2023 Bilateral hand swelling [M79.89] 01/05/2023 Chronic pain of both knees [M25.561, M25.562, G*03/05/2023 Encounter Status:Closed by PRECIOUS HARTMAN on 09/10/23 Normal [facility] CRP SerPl-mCncon 09-05-2023 CRP [Mass/Vol] 0.8 mg/dL Normal <0.9 [facility] Comment on above: Order Comment: Speci men Type: BLOOD SPECIMENOrdering Facility: [facility] Address: [address] [place] [address] Performed By: #### 1 [id number] ####[facility] [id number] [place] [address] [place] ESR Westergren method (Bld) [Velocity]on 09-05-2023 ESR (Bld) [Velocity] 2 mm/h Normal 0-15 [facility] Comment on above: Order Comment: Speci men Type: BLOOD SPECIMENOrdering Facility: [facility] Address: [address] [place] [address] Performed By: #### 4 [id number] ####[facility] LABCLIA [id number] [place] [address] [place] Laboratory - Hematology and Cell countson 09-05-2023 ESR (Bld) [Velocity] 2 mm/h 0-15 [facility] No Panel Informationon 09-04 C-Reactive Protein, Quantitative 0.8 mg/dL <0.9 [facility] Automated basophil %Ordered By: Elliott Talley on 09-01-2023 Basophils/100 WBC (Bld) 0.5 % . [facility] Comment on above: Performed By: #### C BC #### [address] Automated basophil countOrde red By: Elliott Mayank on 09-01-2023 Basophils (Bld) [#/Vol] 0.0 10*3/uL 0.0-0.2 [facility] Comment on above: Result Comment: PERF ORMED BY: [place] [address] PATHOLOGIST CANDY COUNTER CLERK ALAYNA CAPONE M.D. Performed By: #### C BC #### [address] Automated blood monocyte cou ntOrdered By: Elliott Talley on 09-01-2023 Monocytes (Bld) [#/Vol] 0.5 10*3/uL 0.0-0.8 [facility] Comment on above: Performed By: #### C BC #### [address] Automated eosinophil %Ordere d By: Elliott Talley on 09-01-2023 Eosinophils/100 WBC (Bld) 0.8 % . [facility] Comment on above: Performed By: #### C BC #### [address] Automated eosinophil countOr dered By: Elliottoliver Talley on 09-01-2023 Eosinophils (Bld) [#/Vol] 0.1 10*3/uL 0.0-0.45 [facility] Comment on above: Performed By: #### C BC #### [address] Automated monocyte %Ordered By: Elliottana maria Gutierrezor on 09-01-2023 Monocytes/100 WBC (Bld) 6.4 % . [facility] Comment on above: Performed By: #### C BC #### [address] Automated neutrophil %Ordere d By: Elliott Gutierrezor on 09-01-2023 Neutrophils/100 WBC (Bld) 78.8 % . [facility] Comment on above: Performed By: #### C BC #### [address] Complete Blood Count Auto Di ffon 09-01-2023 Mean Corpuscular HGB Conc 33.7 g/dL Normal 32.5-35.6 [facility] Comment on above: Performed By: #### C BC #### [address] NRBC% 0.0 /100{WBC} Normal 0-0.5 [facility] Comment on above: Performed By: #### C BC #### [address] Erythrocyte distribution wid th [Ratio] by Automated countOrdered By: Elliott Talley on 09-01-2023 Erythrocyte distribution width (RBC) [Ratio] 15.2 % High 12.0-14.8 [facility] Comment on above: Performed By: #### C BC #### [address] Erythrocytes [#/volume] in B lood by Automated countOrdered By: Elliott Talley on 09-01-2023 RBC (Bld) [#/Vol] 4.66 10*6/uL 3.90-5.60 [facility] Comment on above: Performed By: #### C BC #### [address] Hematocrit [Volume Fraction] of Blood by Automated countOrdered By: Elliott Talley on 09-01-2023 Hematocrit (Bld) [Volume fraction] 47.9 % 38.8-50.0 [facility] Comment on above: Performed By: #### C BC #### [address] Hemoglobin [Mass/volume] in BloodOrdered By: Elliott Diannekpor on 09-01-2023 Hemoglobin (Bld) [Mass/Vol] 16.1 g/dL 13.0-17.0 [facility] Comment on above: Performed By: #### C BC #### [address] Leukocytes [#/volume] correc collins for nucleated erythrocytes in Blood by Automated counOrdered By: Elliott Diannekpor on 09-01-2023 WBC corrected for nucl RBC Auto (Bld) [#/Vol] 7.6 10*3/uL 4.1-10.5 [facility] Leukocytes [#/volume] in Blo od by Automated countOrdered By: Elliott Diannekpor on 09-01-2023 WBC (Bld) [#/Vol] 7.6 10*3/uL 4.1-10.5 [facility] Comment on above: Performed By: #### C BC #### [place] [address] [place] Lymphocytes [#/volume] in Bl ood by Automated countOrdered By: Elliott Diannekpor on 09-01-2023 Lymphocytes (Bld) [#/Vol] 1.0 10*3/uL 1.00-4.8 [facility] Comment on above: Performed By: #### C BC #### [place] [address] [place] Lymphocytes/100 leukocytes i n Blood by Automated countOrdered By: Elliott josiekpor on 09-01-2023 Lymphocytes/100 WBC (Bld) 13.5 % . [facility] Comment on above: Performed By: #### C BC #### [place] [address] [place] MCH [Entitic mass] by Automa collins countOrdered By: Elliott Diannekpor on 09-01-2023 MCH (RBC) [Entitic mass] 34.6 pg 27.5-35.2 [facility] Comment on above: Performed By: #### C BC #### [facility] [address] [place] [address] MCHC Auto (RBC) [Mass/Vol]Or dered By: Elliott Gutierrezor on 09-01-2023 MCHC (RBC) [Mass/Vol] 33.7 g/dL 32.5-35.6 [facility] MCV [Entitic volume] by Auto mated countOrdered By: Elliott Talley on 09-01-2023 MCV (RBC) [Entitic vol] 102.8 fL High 83.5-101 [facility] Comment on above: Performed By: #### C BC #### [address] Neutrophils [#/volume] in Bl ood by Automated countOrdered By: Elliott Talley on 09-01-2023 Neutrophils (Bld) [#/Vol] 6.0 10*3/uL 1.8-7.7 [facility] Comment on above: Performed By: #### C BC #### [facility] [address] [place] [address] Nucleated erythrocytes [Pres ence] in Blood by Automated countOrdered By: Elliott Talley on 09-01-2023 Nucleated RBC Auto Ql (Bld) 0.0 /100{WBC} 0-0.5 [facility] Platelet mean volume [Entiti c volume] in Blood by Automated countOrdered By: Elliott Gutierrezor on 09-01-2023 Platelet mean volume (Bld) [Entitic vol] 9.1 fL 6.6-10.1 [facility] Comment on above: Performed By: #### C BC #### [address] Platelets [#/volume] in Bloo d by Automated countOrdered By: Elliott Talley on 09-01-2023 Platelets (Bld) [#/Vol] 119 10*3/uL Low 150-450 [facility] Comment on above: Performed By: #### C BC #### [facility] [address] [place] [address] [place] Activated partial thrombopla stin time (aPTT) in platelet poor plasma by coagulation aOrdered By: Elliott Talley on 08-31-2023 aPTT Coag (PPP) [Time] 27.6 s 25.1-36.5 [facility] Comment on above: A hematocrit value g reater than 55% may lead to inaccurate results in coagulation testing. Patients having hematocrit values >55% require a special collection tube for coagulation studies. Please contact the laboratory at [phone] for redraw instructions. Alanine aminotransferase [En zymatic activity/volume] in Serum or PlasmaOrdered By: Elliott Talley on 08-31-2023 ALT [Catalytic activity/Vol] 33 U/L 7-52 [facility] Comment on above: Performed By: #### A 1C WTH eA, HGB, [id number], ALB #### [facility] [address] [place] [address] [place] Albumin [Mass/volume] in Ser um or Plasma by Bromocresol green (BCG) dye binding methoOrdered By: Elliott Talley on 08-31-2023 Albumin BCG dye [Mass/Vol] 3.5 g/dL 3.5-5.7 [facility] Alkaline phosphatase [Enzyma tic activity/volume] in Serum or PlasmaOrdered By: Elliott Talley on 08-31-2023 ALP [Catalytic activity/Vol] 39 U/L 34-104 [facility] Comment on above: Performed By: #### A 1C WTH eA, HGB, [id number], ALB #### [facility] [address] [place] [address] [place] Aspartate aminotransferase [ Enzymatic activity/volume] in Serum or PlasmaOrdered By: Elliott Talley on 08-31-2023 AST [Catalytic activity/Vol] 19 U/L 13-39 [facility] Comment on above: Performed By: #### A 1C WTH eA, HGB, [id number], ALB #### [facility] [address] [place] [id number] [facility] Bilirubin.total [Mass/volume ] in Serum or PlasmaOrdered By: Elliott Talley on 08-31-2023 Bilirubin [Mass/Vol] 1.3 mg/dL High 0.3-1.0 [facility] Comment on above: Samples from patient s who have taken Naproxen have shown spurious elevation in Total Bilirubin levels. A metabolite of Naproxen, O-desmethylnaproxen, has been shown to interfere with the Jendrassik-Grof method for measuring Total Bilirubin. Result Comment: Samp les from patients who have taken Naproxen have shown spurious elevation in Total Bilirubin levels. A metabolite of Naproxen, O-desmethylnaproxen, has been shown to interfere with the Jendrassik-Grof method for measuring Total Bilirubin. Performed By: #### A 1C WTH eA, HGB, [id number], ALB #### [facility] [address] [place] [id number] [place] Calcium [Mass/volume] in Ser um or PlasmaOrdered By: Elliott Talley on 08-31-2023 Calcium [Mass/Vol] 8.6 mg/dL 8.6-10.3 [facility] Comment on above: Performed By: #### A 1C WTH eA, HGB, [id number], ALB #### [facility] [address] [place] [id number] [place] Carbon dioxide, total [Moles /volume] in Serum or PlasmaOrdered By: Elliott Talley on 08-31-2023 CO2 [Moles/Vol] 29.2 mmol/L 21.0-31.0 [facility] Comment on above: Performed By: #### A 1C WTH eA, HGB, [id number], ALB #### [facility] [address] [place] [id number] [place] Chloride [Moles/volume] in S ursula or PlasmaOrdered By: Elliott Diannekpor on 08-31-2023 Chloride [Moles/Vol] 104 mmol/L 98-107 [facility] Comment on above: Performed By: #### A 1C WTH eA, HGB, [id number], ALB #### [address] Complete Blood Count Auto Di ffon 08-31-2023 Basophils (Bld) [#/Vol] 0.1 10*3/uL Normal 0.0-0.2 [facility] Comment on above: Result Comment: PERF ORMED BY: [place] [address] PATHOLOGIST CANDY COUNTER CLERK ALAYNA CAPONE M.D. Performed By: #### A 1C WTH eA, HGB, [id number], ALB #### [address] Basophils/100 WBC (Bld) 0.5 % Normal . [facility] Comment on above: Performed By: #### A 1C WTH eA, HGB, [id number], ALB #### [address] Eosinophils (Bld) [#/Vol] 0.0 10*3/uL Normal 0.0-0.45 [facility] Comment on above: Performed By: #### A 1C WTH eA, HGB, [id number], ALB #### [address] Eosinophils/100 WBC (Bld) 0.4 % Normal . [facility] Comment on above: Performed By: #### A 1C WTH eA, HGB, [id number], ALB #### [address] Erythrocyte distribution width (RBC) [Ratio] 15.0 % High 12.0-14.8 [facility] Comment on above: Performed By: #### A 1C WTH eA, HGB, [id number], ALB #### [address] Hematocrit (Bld) [Volume fraction] 44.2 % Normal 38.8-50.0 [facility] Comment on above: Performed By: #### A 1C WTH eA, HGB, [id number], ALB #### [address] Hemoglobin (Bld) [Mass/Vol] 14.8 g/dL Normal 13.0-17.0 [facility] Comment on above: Performed By: #### A 1C WTH eA, HGB, [id number], ALB #### [address] Lymphocytes (Bld) [#/Vol] 1.0 10*3/uL Normal 1.00-4.8 [facility] Comment on above: Performed By: #### A 1C WT eA, HGB, [id number], ALB #### [address] Lymphocytes/100 WBC (Bld) 7.9 % Normal . [facility] Comment on above: Performed By: #### A 1C WT eA, HGB, [id number], ALB #### [address] MCH (RBC) [Entitic mass] 34.6 pg Normal 27.5-35.2 [facility] Comment on above: Performed By: #### A 1C WT eA, HGB, [id number], ALB #### [address] MCV (RBC) [Entitic vol] 103.5 fL High 83.5-101 [facility] Comment on above: Performed By: #### A 1C WT eA, HGB, [id number], ALB #### [address] Mean Corpuscular HGB Conc 33.4 g/dL Normal 32.5-35.6 [facility] Comment on above: Performed By: #### A 1C WTH eA, HGB, [id number], ALB #### [address] Monocytes (Bld) [#/Vol] 0.5 10*3/uL Normal 0.0-0.8 [facility] Comment on above: Performed By: #### A 1C WTH eA, HGB, [id number], ALB #### [address] Monocytes/100 WBC (Bld) 4.5 % Normal . [facility] Comment on above: Performed By: #### A 1C WTH eA, HGB, [id number], ALB #### [address] Neutrophils (Bld) [#/Vol] 10.5 10*3/uL High 1.8-7.7 [facility] Comment on above: Performed By: #### A 1C WTH eA, HGB, [id number], ALB #### [address] Neutrophils/100 WBC (Bld) 86.7 % Normal . [facility] Comment on above: Performed By: #### A 1C WTH eA, HGB, [id number], ALB #### [address] NRBC% 0.1 /100{WBC} Normal 0-0.5 [facility] Comment on above: Performed By: #### A 1C WTH eA, HGB, [id number], ALB #### [address] Platelet mean volume (Bld) [Entitic vol] 8.9 fL Normal 6.6-10.1 [facility] Comment on above: Performed By: #### A 1C WTH eA, HGB, [id number], ALB #### [address] Platelets (Bld) [#/Vol] 118 10*3/uL Significant change down 150-450 [facility] Comment on above: Performed By: #### A 1C WTH eA, HGB, [id number], ALB #### [address] RBC (Bld) [#/Vol] 4.28 10*6/uL Normal 3.90-5.60 [facility] Comment on above: Performed By: #### A 1C WTH eA, HGB, [id number], ALB #### [address] WBC (Bld) [#/Vol] 12.1 10*3/uL High 4.1-10.5 [facility] Comment on above: Performed By: #### A 1C WTH eA, HGB, [id number], ALB #### [address] Comprehensive Metabolic Pane jose 08-31-2023 Albumin [Mass/Vol] 3.5 g/dL Normal 3.5-5.7 [facility] Comment on above: Performed By: #### A 1C WTH eA, HGB, [id number], ALB #### [address] Creatinine Clr Calc Pharmacy 90.65 Normal [facility] Comment on above: Performed By: #### A 1C WTH eA, HGB, [id number], ALB #### [address] GFR/1.73 sq M.predicted MDRD (S/P/Bld) [Vol rate/Area] mL/min/{1.73_m2} Normal [facility] Comment on above: Performed By: #### A 1C WTH eA, HGB, [id number], ALB #### [address] Cortisolon 08-31-2023 Cortisol 9.4 ug/dL Normal [facility] Comment on above: Result Comment: Refe rence range: AM 6 - 24 ug/dl PM <10 ug/dl [facility] diploma maker and method: [employer] DXI, POLYCLONAL ANTIBODY CORTISOL ASSAY. PERFORMED BY: [place] [address] PATHOLOGIST CANDY COUNTER CLERK ALAYNA CAPONE M.D. Performed By: #### A 1C WTH eA, HGB, [id number], ALB #### [address] [place] [address] [place] Creatinine [Mass/volume] in Serum or PlasmaOrdered By: Elliott Talley on 08-31-2023 Creatinine [Mass/Vol] 1.05 mg/dL 0.70-1.30 [facility] Comment on above: Performed By: #### A 1C WTH eA, HGB, [id number], ALB #### [facility] [address] [place] [phone] [place] Glucose [Mass/volume] in Ser um or PlasmaOrdered By: Elliott Talley on 08-31-2023 Glucose [Mass/Vol] 101 mg/dL High 70-100 [facility] Comment on above: ADA recommended refe rence rangeRandom Glucose Reference Range is dependent on time and content of last meal. Glucose of more than 200 mg/dL in a nonstressed, ambulatory subject supports the diagnosis of Diabetes Mellitus. Result Comment: [place] om Glucose Reference Range is dependent on time and content of last meal. Glucose of more than 200 mg/dL in a nonstressed, ambulatory subject supports the diagnosis of Diabetes Mellitus. ADA recommended reference range Performed By: #### A 1C WTH eA, HGB, [id number], ALB #### [facility] [address] [place] [id number] [place] INR in Platelet poor plasma by Coagulation assayOrdered By: Elliott Talley on 08-31-2023 INR Coag (PPP) [Relative time] 1.1 {INR} [facility] Comment on above: INR Therapeutic Rang e A) Pre- and Peroperative OAT started two weeks before surgery. NOT HIP SURGERY: 1.5 - 2.5 HIP SURGERY: 2 - 3B) Primary and secondary prevention of venous THROMBOSIS: 2 - 3C) Active venous thrombosis, pulmonary embolismand prevention of recurrent venous thrombosis: 2 - 3D) Prevention of arterial thromboembolismincluding patients with mechanical heart valves: 3 - 4.5 Result Comment: INR Therapeutic Range A) Pre- and Peroperative OAT started two weeks before surgery. NOT HIP SURGERY: 1.5 - 2.5 HIP SURGERY: 2 - 3 B) Primary and secondary prevention of venous THROMBOSIS: 2 - 3 C) Active venous thrombosis, pulmonary embolism and prevention of recurrent venous thrombosis: 2 - 3 D) Prevention of arterial thromboembolism including patients with mechanical heart valves: 3 - 4.5 Performed By: #### A 1C WTH eA, HGB, [id number], ALB #### [address] Magnesium [Mass/volume] in S ursula or PlasmaOrdered By: Elliott Talley on 08-31-2023 Magnesium [Mass/Vol] 2.0 mg/dL 1.9-2.7 [facility] Comment on above: Performed By: #### A 1C WTH eA, HGB, [id number], ALB #### [address] No Panel InformationOrdered By: Elliott Talley on 08-31-2023 Estimated GFR (CKD-EPI) > 60.0 mL/Min [facility] Creatinine Clearance (Chem 90.65 [facility] Partial Thromboplastin Timeo n 08-31-2023 aPTT Coag (Bld) [Time] 27.6 s Normal 25.1-36.5 Th e [facility] Comment on above: Result Comment: A he matocrit value greater than 55% may lead to inaccurate results in coagulation testing. Patients having hematocrit values >55% require a special collection tube for coagulation studies. Please contact the laboratory at [phone] for redraw instructions. PERFORMED BY: [place] [address] PATHOLOGIST CANDY COUNTER CLERK ALAYNA CAPONE M.D. Performed By: #### A 1C WTH eA, HGB, [id number], ALB #### [address] Potassium [Moles/volume] in Serum or PlasmaOrdered By: Elliott Talley on 08-31-2023 Potassium [Moles/Vol] 4.4 mmol/L 3.5-5.1 [facility] Comment on above: Performed By: #### A 1C WTH eA, HGB, [id number], ALB #### [address] Protein [Mass/volume] in Ser um or PlasmaOrdered By: Elliott Talley on 08-31-2023 Protein [Mass/Vol] 5.6 g/dL Low 6.4-8.9 [facility] Comment on above: Performed By: #### A 1C WTH eA, HGB, [id number], ALB #### [facility] [address] Prothrombin time (PT)Ordered By: Elliott Talley on 08-31-2023 PT Coag (PPP) [Time] 13.1 s High 9.0-12.9 [facility] Comment on above: A hematocrit value g reater than 55% may lead to inaccurate results in coagulation testing. Patients having hematocrit values >55% require a special collection tube for coagulation studies. Please contact the laboratory at [phone] for redraw instructions. Result Comment: A he matocrit value greater than 55% may lead to inaccurate results in coagulation testing. Patients having hematocrit values >55% require a special collection tube for coagulation studies. Please contact the laboratory at [phone] for redraw instructions. Performed By: #### A 1C WTH eA, HGB, [id number], ALB #### [facility] [address] Random cortisol measurementO rdered By: Elliott Talley on 08-31-2023 Cortisol [Mass/Vol] 9.4 ug/dL [facility] Comment on above: [facility] diploma maker and method:BERTIN UNICEL DXI, POLYCLONAL ANTIBODY CORTISOL ASSAY.Reference range: AM 6 - 24 ug/dl PM <10 ug/dl Serum globulin measurement b y calculation (mass/volume)Ordered By: Elliott Talley on 08-31-2023 Globulin (S) [Mass/Vol] 2.1 g/dL [facility] Comment on above: Performed By: #### A 1C WTH eA, HGB, [id number], ALB #### [facility] [address] Serum or plasma albumin/glob ulin mass ratioOrdered By: Elliott Talley on 08-31-2023 Albumin/Globulin [Mass ratio] 1.7 {ratio} [facility] Comment on above: Performed By: #### A 1C WTH eA, HGB, [id number], ALB #### [facility] [address] Serum or plasma anion gap de terminationOrdered By: Elliott Talley on 08-31-2023 Anion gap [Moles/Vol] 9.2 mmol/L 6.0-15.0 [facility] Comment on above: Performed By: #### A 1C WTH eA, HGB, [id number], ALB #### [facility] [address] Sodium [Moles/volume] in Ser um or PlasmaOrdered By: Elliott Talley on 08-31-2023 Sodium [Moles/Vol] 138 mmol/L 136-145 [facility] Comment on above: Performed By: #### A 1C WTH eA, HGB, [id number], ALB #### [facility] [address] Urea nitrogen [Mass/volume] in Serum or PlasmaOrdered By: Elliott Talley on 08-31-2023 Urea nitrogen [Mass/Vol] 15 mg/dL 7-25 [facility] Comment on above: Performed By: #### A 1C WTH eA, HGB, [id number], ALB #### [facility] [address] [place] [address] [place] Activated partial thrombopla stin time (aPTT) in platelet poor plasma by coagulation aOrdered By: Hermes Velez on 08-30-2023 aPTT Coag (PPP) [Time] 25.5 s 25.1-36.5 [facility] Comment on above: A hematocrit value g reater than 55% may lead to inaccurate results in coagulation testing. Patients having hematocrit values >55% require a special collection tube for coagulation studies. Please contact the laboratory at [phone] for redraw instructions. Alanine aminotransferase [En zymatic activity/volume] in Serum or PlasmaOrdered By: Hermes Velez on 08-30-2023 ALT [Catalytic activity/Vol] 44 U/L Normal 7-52 [facility] Comment on above: Performed By: #### B BLANK DRILLER #### [address] Albumin [Mass/volume] in Ser um or Plasma by Bromocresol green (BCG) dye binding methoOrdered By: Hermes Velez on 08-30-2023 Albumin BCG dye [Mass/Vol] 4.2 g/dL 3.5-5.7 [facility] Alkaline phosphatase [Enzyma tic activity/volume] in Serum or PlasmaOrdered By: Hermes Velez on 08-30-2023 ALP [Catalytic activity/Vol] 46 U/L Normal 34-104 [facility] Comment on above: Performed By: #### B BLANK DRILLER #### [address] Aspartate aminotransferase [ Enzymatic activity/volume] in Serum or PlasmaOrdered By: Hermes Velez on 08-30-2023 AST [Catalytic activity/Vol] 27 U/L Normal 13-39 [facility] Comment on above: Performed By: #### B BLANK DRILLER #### [address] Automated basophil %Ordered By: Hermes Velez on 08-30-2023 Basophils/100 WBC (Bld) 0.8 % Normal . [facility] Comment on above: Performed By: #### A 1C WTH eA, HGB, [id number], ALB #### [address] Automated basophil countOrde red By: Hermes Velez on 08-30-2023 Basophils (Bld) [#/Vol] 0.1 10*3/uL Normal 0.0-0.2 [facility] Comment on above: Result Comment: PERF ORMED BY: [place] [address] PATHOLOGIST CANDY COUNTER CLERK ALAYNA CAPONE M.D. Performed By: #### A 1C WTH eA, HGB, [id number], ALB #### [address] Automated blood monocyte cou ntOrdered By: Hermes Velez on 08-30-2023 Monocytes (Bld) [#/Vol] 0.3 10*3/uL Normal 0.0-0.8 [facility] Comment on above: Performed By: #### A 1C WT eA, HGB, [id number], ALB #### [address] Automated eosinophil %Ordere d By: Hermes Velez on 08-30-2023 Eosinophils/100 WBC (Bld) 0.1 % Normal . [facility] Comment on above: Performed By: #### A 1C WT eA, HGB, [id number], ALB #### [address] Automated eosinophil countOr dered By: Hermes Velez on 08-30-2023 Eosinophils (Bld) [#/Vol] 0.0 10*3/uL Normal 0.0-0.45 [facility] Comment on above: Performed By: #### A 1C WT eA, HGB, [id number], ALB #### [address] Automated monocyte %Ordered By: Hermes Velez on 08-30-2023 Monocytes/100 WBC (Bld) 2.3 % Normal . [facility] Comment on above: Performed By: #### A 1C WT eA, HGB, [id number], ALB #### [address] Automated neutrophil %Ordere d By: Hermes Velez on 08-30-2023 Neutrophils/100 WBC (Bld) 92.4 % Normal . [facility] Comment on above: Performed By: #### A 1C WTH eA, HGB, [id number], ALB #### [address] BNP ser/plasOrdered By: Mookie Velez on 08-30-2023 Natriuretic peptide B (Bld) [Mass/Vol] 401.0 pg/mL High 5-100 [facility] Comment on above: Result Comment: PERF ORMED BY: [place] [address] PATHOLOGIST CANDY COUNTER CLERK ALAYNA CAPONE M.D. Performed By: #### A 1C WTH eA, HGB, [id number], ALB #### [address] Bacterial blood cultureOrder ed By: Hermes Velez on 08-30-2023 Bacteria identified Cx Nom (Bld) NO GROWTH 5 DAYS [facility] Basic Metabolic Panelon 08-08 Creatinine Clr Calc Pharmacy 82.75 Normal [facility] Comment on above: Result Comment: PERF ORMED BY: [place] [address] PATHOLOGIST CANDY COUNTER CLERK ALAYNA CAPONE M.D. Performed By: #### B BLANK DRILLER #### [address] GFR/1.73 sq M.predicted MDRD (S/P/Bld) [Vol rate/Area] mL/min/{1.73_m2} Normal [facility] Comment on above: Performed By: #### B BLANK DRILLER #### [address] Bilirubin Test strip Ql (U)O rdered By: Hermes Velez on 08-30-2023 Bilirubin Ql (U) Negative Negative [facility] Bilirubin.direct [Mass/volum e] in Serum or PlasmaOrdered By: Hermes Velez on 08-30-2023 Bilirubin.direct [Mass/Vol] 0.20 mg/dL High 0.03-0.18 [facility] Bilirubin.total [Mass/volume ] in Serum or PlasmaOrdered By: Hermes Velez on 08-30-2023 Bilirubin [Mass/Vol] 0.9 mg/dL Normal 0.3-1.0 [facility] Comment on above: Performed By: #### B BLANK DRILLER #### [address] BioFire Not Detectedon 08-29 BioFire Not Detected Not detected Normal Not Detecte [facility] Comment on above: Result Comment: This is a duplicate RP2.1 COVID (PCR) result to be used for statistical tracking purpose only. PERFORMED BY: [place] [id number] PATHOLOGIST CANDY COUNTER CLERK ALAYNA CAPONE M.D. Performed By: #### A 1C WTH eA, HGB, [id number], ALB #### [place] [id number] [facility] Blood Cultureon 08-30-2023 Bacteria identified Cx Nom (Bld) NO GROWTH 5 DAYS PERFORMED BY: [place] [address] PATHOLOGIST CANDY COUNTER CLERK ALAYNA CAPONE M.D. Normal [facility] Comment on above: Performed By: #### B BLANK DRILLER #### [place] [id number] [facility] Bacteria identified Cx Nom (Bld) BioFire BCID Panel results called at 1341 on 08/31/23 Gram Stain Gram Positive Cocci in Clusters ORGANISM: Staphylococcus sp coag neg (O:STACN) Aerobic FERNANDO Charge (PCMIC38) SUSCEPTIBILITY ORGANISM: O:STACN ANTIBIOTIC INTERPRETATION FERNANDO Azithromycin S <2 Ciprofloxacin S <1 Daptomycin S <0.5 Levofloxacin S <1 Linezolid S <1 Oxacillin S <0.25 Penicillin KOKO >2 Tetracycline S <4 Trimethoprim/Sulfamethoxa zole S <0.5 Vancomycin S 0.5 BioFire BCID Panel results called at 1341 on 08/31/23 Staphylococcus aureus DNA [Presence] by ROSIE with non-probe detection in Positive blood culture Not detected Bacteroides fragilis DNA [Presence] by ROSIE with non-probe detection in Positive blood culture Not detected Jennifer auris DNA [Presence] by ROSIE with non-probe detection in Positive blood culture Not detected Jennifer albicans DNA [Presence] by ROSIE with non-probe detection in Positive blood culture Not detected Acinetobacter calcoaceticus-baumannii complex DNA [Presence] by ROSIE with non-probe detection in Positive blood culture Not detected Cryptococcus neoformans or gattii 9002 Not detected Cephalosporin resistance blaCTX-M gene [Presence] by Molecular method Not Applicable Escherichia coli Not detected Enterobacterales DNA [Presence] by ROSIE with non-probe detection in Positive blood culture Not detected Enterobacter cloacae complex DNA [Presence] by ROSIE with non-probe detection in Positive blood culture Not detected Staphylococcus epidermidis DNA [Presence] by ROSIE with non-probe detection in Positive blood culture Not detected Enterococcus faecalis DNA [Presence] by ROSIE with non-probe detection in Positive blood culture Not detected Enterococcus faecium DNA [Presence] by ROSIE with non-probe detection in Positive blood culture Not detected Jennifer glabrata DNA [Presence] by ROSIE with non-probe detection in Positive blood culture Not detected Haemophilus influenzae (reported as H flu) Not detected Carbapenem resistance blaIMP gene [Presence] by Molecular method Not Applicable Klebsiella aerogenes DNA [Presence] by ROSIE with non-probe detection in Positive blood culture Not detected Klebsiella pneumoniae+Klebsiella variicola+Klebsiella quasipneumoniae DNA [Presence] by ROSIE with non-probe detection in Positive blood culture Not detected Klebsiella oxytoca DNA [Presence] by ROSIE with non-probe detection in Positive blood culture Not detected Carbapenem resistance blaKPC gene [Presence] by Molecular method Not Applicable Jennifer krusei DNA [Presence] by ROSIE with non-probe detection in Positive blood culture Not detected Listeria monocytogenes (reported as listeriosis) Not detected Staphylococcus lugdunensis DNA [Presence] by ROSIE with non-probe detection in Positive blood culture Not detected Methicillin resistance mecA+mecC genes+SCCmec+OrfX junction [Presence] by Molecular method Not Applicable Carbapenem resistance blaNDM gene [Presence] by Molecular method Not Applicable Neisseria meningitidis - reported as meningococcal disease Not detected Carbapenem resistance ayleen OXA-48-like gene [Presence] by Molecular method Not Applicable Jennifer parapsilosis DNA [Presence] by ROSIE with non-probe detection in Positive blood culture Not detected Streptococcus pneumoniae - reported at ISP Not detected Proteus sp DNA [Presence] by ROSIE with non-probe detection in Positive blood culture Not detected Pseudomonas aeruginosa DNA [Presence] by ROSIE with non-probe detection in Positive blood culture Not detected Salmonella sp DNA [Presence] by ROSIE with non-probe detection in Positive blood culture Not detected Serratia marcescens DNA [Presence] by ROSIE with non-probe detection in Positive blood culture Not detected Staphylococcus sp DNA [Presence] by ROSIE with non-probe detection in Positive blood culture Detected Stenotrophomonas maltophilia DNA [Presence] by ROSIE with non-probe detection in Positive blood culture Not detected Group A (Streptococcus pyogenes) [id number] Not detected Group B Strep (Streptococcus agalactiae) Not detected Streptococcus sp DNA [Presence] by ROSIE with non-probe detection in Positive blood culture Not detected Jennifer tropicalis DNA [Presence] by ROSIE with non-probe detection in Positive blood culture Not detected Vancomycin resistance Quintin + vanB genes [Presence] by Molecular method Not Applicable Carbapenem resistance blaVIM gene [Presence] by Molecular method Not Applicable Colistin resistance mcr-1 gene [Presence] by Molecular method Not Applicable Methicillin resistance mecA+mecC genes [Presence] in Isolate or Specimen by Molecular genetics method Not Applicable RESIS. GENE COMMENT 1 Antimicrobial resistance can occur via multiple RESIS. GENE COMMENT 2 mechanisms. A Not Detected result for antimicrobial RESIS. GENE COMMENT 3 resistance gene(s) does not indic (more content not included)... Normal [facility] Comment on above: Performed By: #### B BLANK DRILLER #### [address] COVID CepheidOrdered By: Rodney Krugerland on 08-30-2023 SARS-CoV-2 (COVID-19) Ab IA Ql Negative Negative [facility] Comment on above: This is a duplicate Cepheid Xpert Xpress CoV-2/Flu/RSV Plus RNA by RT-PCR result to be used for statistical tracking purpose only. SARS-CoV-2 (COVID-19) RNA ROSIE+probe Ql (Unsp spec) [facility] COVID-19 / Flu A/B / RSV PCR on 08-30-2023 SARS-CoV-2 (COVID-19) RNA ROSIE+probe Ql (Unsp spec) COVID-19 Cepheid Result Negative for SARS-CoV-2 RNA by RT-PCR Flu A Cepheid Result Negative for Flu A RNA by RT-PCR Flu B Cepheid Result Negative for Flu B RNA by RT-PCR RSV Cepheid Result Negative for RSV RNA by RT-PCR COVID19 Blank Space ---- Reference: Negative COVID19 Blank Space ---- Cepheid Disclaimer The Cepheid Xpert Xpress CoV-2/Flu/RSV Plus has Cepheid Disclaimer not been FDA cleared or approved; this test has Cepheid Disclaimer been authorized by FDA under an EUA for use by Cepheid Disclaimer authorized laboratories; this test has been Cepheid Disclaimer authorized only for the simultaneous qualitative Cepheid Disclaimer detection and differentiation of nucleic acids from Cepheid Disclaimer SARS-CoV-2, influenza A, influenza B, and Cepheid Disclaimer respiratory syncytial virus (RSV), and not for any Cepheid Disclaimer other viruses or pathogens; and this test is only Cepheid Disclaimer authorized for the duration of the declaration that Cepheid Disclaimer circumstances exist justifying the authorization of Cepheid Disclaimer emergency use of in vitro diagnostic tests for Cepheid Disclaimer detection and/or diagnosis of COVID-19 under Cepheid Disclaimer Section 564(b)(1) of the Act, 21 U.S.C. 360bbb- Cepheid Disclaimer 3(b)(1), unless the authorization is terminated or Cepheid Disclaimer revoked sooner. PERFORMED BY: [place] [id number] PATHOLOGIST CANDY COUNTER CLERK ALAYNA CAPONE M.D. Normal [facility] Comment on above: Performed By: #### A 1C WTH eA, HGB, [id number], ALB #### [address] COVID-19 Detected/Not Detect edOrdered By: Elliott Talley on 08-30-2023 SARS-CoV-2 (COVID-19) RNA ROSIE+non-probe Ql (Nph) Not detected Not Detecte [facility] Comment on above: This is a duplicate RP2.1 COVID (PCR) result to be used for statistical tracking purpose only. CT abdomen pelvis w conon CT abdomen pelvis w con [facility] [place] [address] [place], [place] [id number] CT Scan Report Signed Patient: Esme Steven MR#: [id number] : 1960 Acct:[id number] Age/Sex: 62 / M ADM Date: 08/30/23 Loc: ER Room: Type: [facility] ER Attending Dr: Copies to: Erin Suresh MD Ordering Provider: Erin Suresh MD Date of Service: 08/30/23 CT/CT abdomen pelvis w con: LLQ abd pain, vomiting CT ABDOMEN AND PELVIS WITH CONTRAST COMPARISON: None CLINICAL DATA: Chest and abdominal pain. Spiral images were obtained through the abdomen and pelvis following 90 mL Isovue-370. This CT exam was performed using one or more following dose reduction techniques: Automated exposure control, adjustment of the mA and/or kV according to patient size, or use of iterative reconstruction technique. Limited cuts through the lung bases show mild gynecomastia. The heart is borderline prominent and there is coronary artery disease. Minimal atelectasis or scarring. There is fatty infiltration of the liver. No calcified gallstones are identified. The spleen, pancreas and adrenal glands show no acute findings. There is minor bilateral perinephric fibrofatty stranding. The renal nephrograms are symmetric. No hydronephrosis is seen. Atherosclerotic plaque is present at the aorta and iliac arteries. There are tiny lymph nodes. No ascites is seen. There are no dilated small bowel loops. There is mild stool within the colon, greater on the right. Postoperative and degenerative changes are seen at the spine. There is still some residual spinal stenosis, severe at L2-3 and L3-4. There is foraminal encroachment at L4-5 and L5-S1. Images through the pelvis are slightly limited by streak artifact from bilateral hip prostheses. There are nondistended small bowel loops. The appendix is surgically absent. The distal colon is underdistended. There are sigmoid diverticula. There is some pericolonic inflammation and this may be acute diverticulitis. There is no evidence of abscess or perforation. The urinary bladder is not adequately visualized for complete assessment. There is no free fluid. CT/CT abdomen pelvis w con IMPRESSION: FATTY LIVER. NO BOWEL OR URINARY TRACT OBSTRUCTION. SUSPECTED ACUTE SIGMOID DIVERTICULITIS. CORRELATION AND FOLLOW-UP ARE RECOMMENDED. NO OTHER ACUTE FINDINGS Impression dictated by: Gisell Camilo M.D.08/30/2023 8:19 PM Dictation Location: [place] [address] Transcribed By: [facility] 08/30/232018 Dictated By: Gisell Camilo MD 08/30/232009 Signed By: 08/30/232018 Normal [facility] CT angio headon 08-30-2023 CT angio head [facility] [place] [address] [place] [address] CT Scan Report Signed Patient: Esme Steven MR#: [id number] : 1960 Acct:[id number] Age/Sex: 62 / M ADM Date: 08/30/23 Loc: ER Room: Type: [facility] ER Attending Dr: Copies to: Erin Suresh MD Ordering Provider: Erin Suresh MD Date of Service: 08/30/23 CT/CT angio head: acute headache, dizzy +6 hours ([id number]) CT/CT head/brain wo con: acute headache, dizzy ([id number]) CT/CT angio neck: thunderclap headache CLINICAL DATA: Dizziness, headache, chest and abdominal pain. CT BRAIN WITHOUT CONTRAST: COMPARISON: 10/11/2022 TECHNIQUE: Contiguous axial unenhanced images were obtained through the brain. This CT exam was performed using one or more following dose reduction techniques: Automated exposure control, adjustment of the mA and/or kV according to patient size, or use of iterative reconstruction technique. FINDINGS: There is mild atrophy. The ventricles are normal in size and position. Mild microvascular changes are noted. There are no additional areas of abnormal attenuation. There is no hemorrhage, mass effect or extra-axial collections. The imaged paranasal sinuses and mastoid air cells are clear. CT/CT head/brain wo con IMPRESSION: MILD ATROPHY AND CHRONIC MICROVASCULAR CHANGES. NO ACUTE INTRACRANIAL ABNORMALITY. CTA OF THE HEAD AND NECK WITH CONTRAST COMPARISON: none Spiral images were obtained through the head and neck following 90 mL Isovue-370. Sagittal and coronal MIP as well as 3-D volume rendered reconstructions of carotid arteries and minto of Jorge were reviewed. This CT exam was performed using one or more following dose reduction techniques: Automated exposure control, adjustment of the mA and/or kV according to patient size, or use of iterative reconstruction technique. There is mild plaque at the aortic arch and proximal great vessels. There are patent vertebral arteries without focal stenosis or dissection. There is mild plaque at the right common carotid artery and minimal at the bifurcation extending into the origin of the internal carotid artery. There is also some additional plaque within the internal carotid artery distal to this. The degree of stenosis is still thought to be under 50%. On the left, there is mild plaque at the proximal internal carotid artery where the degree of stenosis is well under 50%. The thyroid lobes are either small or surgically absent. There are degenerative changes at the cervical spine. The upper imaged lungs show no contributory findings. The distal vertebral, basilar and posterior cerebral arteries show no significant findings. There is mild right and mild to moderate left carotid siphon plaque with corresponding luminal narrowing. The anterior and middle cerebral arteries are patent. No focal stenosis or suspected thrombosis is seen. No aneurysms are identified. The transverse and sigmoid sinus on the right are smaller than the left. IMPRESSION: CAROTID ARTERY PLAQUE, WITHOUT CRITICAL STENOSIS OR VASCULAR OCCLUSIVE DISEASE. Impression dictated by: Gisell Camilo M.D.08/30/2023 8:09 PM Dictation Location: [place] [address] Transcribed By: [facility] 08/30/232008 Dictated By: Gisell Camilo MD 08/30/231958 Signed By: 08/30/232008 Normal [facility] Calcium [Mass/volume] in Ser um or PlasmaOrdered By: Hermes Velez on 08-30-2023 Calcium [Mass/Vol] 9.3 mg/dL Normal 8.6-10.3 [facility] Comment on above: Performed By: #### B BLANK DRILLER #### [address] Carbon dioxide, total [Moles /volume] in Serum or PlasmaOrdered By: Hermes Velez on 05-23-2024 CO2 [Moles/Vol] 25.1 mmol/L Normal 21.0-31.0 [facility] Comment on above: Performed By: #### B BLANK DRILLER #### [address] Cepheid COVID PCR Negativeon 08-30-2023 SARS-CoV-2 (COVID-19) RNA ROSIE+probe Ql (Unsp spec) Negative Normal Negative [facility] Comment on above: Result Comment: This is a duplicate Cepheid Xpert Xpress CoV-2/Flu/RSV Plus RNA by RT-PCR result to be used for statistical tracking purpose only. PERFORMED BY: [place] [address] PATHOLOGIST CANDY COUNTER CLERK ALAYNA CAPONE M.D. Performed By: #### B BLANK DRILLER #### [address] Chloride [Moles/volume] in S ursula or PlasmaOrdered By: Hermes Velez on 08-30-2023 Chloride [Moles/Vol] 100 mmol/L Normal 98-107 [facility] Comment on above: Performed By: #### B BLANK DRILLER #### [address] Color of Urine by AutoOrdere d By: Hermes Velez on 08-30-2023 Color (U) Yellow Yellow [facility] Comment on above: Order Comment: Name Collection Type:: Clean-Voided Midstream Performed By: #### U A ####[address] Complete Blood Count Auto Di ffon 08-30-2023 Mean Corpuscular HGB Conc 33.7 g/dL Normal 32.5-35.6 [facility] Comment on above: Performed By: #### A 1C WTH eA, HGB, [id number], ALB #### [address] Monocytes/100 WBC (Bld) 21.88 % High 0.00-20.00 [facility] Comment on above: Result Comment: For adults in ED, MDW > 20.0 may be associated with a higher risk of sepsis during the first 12 hrs of hospital admission Performed By: #### A 1C WTH eA, HGB, [id number], ALB #### [facility] [address] NRBC% 0.0 /100{WBC} Normal 0-0.5 [facility] Comment on above: Performed By: #### A 1C WTH eA, HGB, [id number], ALB #### [facility] [address] [place] [address] [place] Creatine kinase [Enzymatic a ctivity/volume] in Serum or PlasmaOrdered By: Hermes Velez on 08-30-2023 CK [Catalytic activity/Vol] 37 U/L [facility] Comment on above: Performed By: #### A 1C WTH eA, HGB, [id number], ALB #### [place] [address] [place] Creatinine [Mass/volume] in Serum or PlasmaOrdered By: Hermes Velez on 08-30-2023 Creatinine [Mass/Vol] 1.11 mg/dL Normal 0.70-1.30 [facility] Comment on above: Performed By: #### B BLANK DRILLER #### [address] ECG 12 lead ECGon 08-30-2023 ECG 12 lead ECG [facility] [place] [address] [place] [address] Electrocardiograph Report Signed Patient: Esme Steven MR#: [id number] : 1960 Acct:[id number] Age/Sex: 62 / M ADM Date: 08/30/23 Loc: Room: [address] [place] [address] Type: ADM IN Attending Dr: Elliott Talley MD Ordering Provider: Erin Suresh MD Date of Service: 08/30/23 ECG/ECG 12 lead ECG: Chest Pain Copies to: Test Reason : Blood Pressure : / mmHG Vent. Rate : 110 BPM Atrial Rate : 110 BPM P-R Int : 192 ms QRS Dur : 106 ms QT Int : 334 ms P-R-T Axes : 038 068 030 degrees QTc Int : 452 ms Sinus tachycardia Possible Anterior infarct , age undetermined Abnormal ECG When compared with ECG of 30-AUG-2023 16:33, (Unconfirmed) No significant change was found Confirmed by Hermes Velez DO ([id number]) on 08/31/2023 1:02:08 AM Referred By: Electronically Signed By:Hermes Velez DO Transcribed By: MUS Signed By Hermes Velez DO 4 010 Normal [facility] ECG 12 lead ECG [facility] [place] [address] [place] [address] Electrocardiograph Report Signed Patient: Esme Steven MR#: [id number] : 1960 Acct:[id number] Age/Sex: 62 / M ADM Date: 08/30/23 Loc: Room: [address] [place] [address] Type: ADM IN Attending Dr: Elliott Talley MD Ordering Provider: Erin Suresh MD Date of Service: 08/30/23 ECG/ECG 12 lead ECG: Chest Pain Copies to: Test Reason : Blood Pressure : / mmHG Vent. Rate : 107 BPM Atrial Rate : 107 BPM P-R Int : 180 ms QRS Dur : 100 ms QT Int : 328 ms P-R-T Axes : 044 065 042 degrees QTc Int : 437 ms Sinus tachycardia T wave abnormality, consider inferior ischemia Abnormal ECG When compared with ECG of 02-AUG-2023 10:14, T wave inversion now evident in Inferior leads Nonspecific T wave abnormality, improved in Lateral leads Confirmed by Hermes Velez DO ([id number]) on 08/31/2023 1:02:08 AM Referred By: Electronically Signed By:Hermes Velez DO Transcribed By: MUS Signed By Hermes Velez DO 4 010 Normal [facility] Erythrocyte distribution wid th [Ratio] by Automated countOrdered By: Hermes Velez on 08-30-2023 Erythrocyte distribution width (RBC) [Ratio] 15.1 % High 12.0-14.8 [facility] Comment on above: Performed By: #### A 1C WTH eA, HGB, [id number], ALB #### [facility] [address] [place] [address] [place] Erythrocytes [#/volume] in B lood by Automated countOrdered By: Hermes Velez on 08-30-2023 RBC (Bld) [#/Vol] 4.70 10*6/uL Normal 3.90-5.60 [facility] Comment on above: Performed By: #### A 1C WTH eA, HGB, [id number], ALB #### [facility] [address] [place] [address] [place] Glucose [Mass/volume] in Ser um or PlasmaOrdered By: Hermes Velez on 08-30-2023 Glucose [Mass/Vol] 123 mg/dL High 70-100 [facility] Comment on above: ADA recommended refe rence rangeRandom Glucose Reference Range is dependent on time and content of last meal. Glucose of more than 200 mg/dL in a nonstressed, ambulatory subject supports the diagnosis of Diabetes Mellitus. Result Comment: [place] om Glucose Reference Range is dependent on time and content of last meal. Glucose of more than 200 mg/dL in a nonstressed, ambulatory subject supports the diagnosis of Diabetes Mellitus. ADA recommended reference range Performed By: #### B BLANK DRILLER #### [facility] [address] [place] [address] [place] Hematocrit [Volume Fraction] of Blood by Automated countOrdered By: Hermes Velez on 08-30-2023 Hematocrit (Bld) [Volume fraction] 48.1 % Normal 38.8-50.0 [facility] Comment on above: Performed By: #### A 1C WTH eA, HGB, [id number], ALB #### [facility] [address] [place] [id number] [place] Hemoglobin [Mass/volume] in BloodOrdered By: Hermes Velez on 08-30-2023 Hemoglobin (Bld) [Mass/Vol] 16.2 g/dL Normal 13.0-17.0 [facility] Comment on above: Performed By: #### A 1C WTH eA, HGB, [id number], ALB #### [facility] [address] Hepatic Panelon 08-30-2023 Albumin [Mass/Vol] 4.2 g/dL Normal 3.5-5.7 [facility] Comment on above: Performed By: #### B BLANK DRILLER #### [address] Bilirubin,Indirect 0.7 mg/dL Normal [facility] Comment on above: Performed By: #### B BLANK DRILLER #### [facility] [address] Bilirubin.indirect [Mass/Vol] 0.20 mg/dL High 0.03-0.18 [facility] Comment on above: Performed By: #### B BLANK DRILLER #### [address] INR in Platelet poor plasma by Coagulation assayOrdered By: Hermes Velez on 08-30-2023 INR Coag (PPP) [Relative time] 1.1 {INR} Normal [facility] Comment on above: INR Therapeutic Rang e A) Pre- and Peroperative OAT started two weeks before surgery. NOT HIP SURGERY: 1.5 - 2.5 HIP SURGERY: 2 - 3B) Primary and secondary prevention of venous THROMBOSIS: 2 - 3C) Active venous thrombosis, pulmonary embolismand prevention of recurrent venous thrombosis: 2 - 3D) Prevention of arterial thromboembolismincluding patients with mechanical heart valves: 3 - 4.5 Result Comment: INR Therapeutic Range A) Pre- and Peroperative OAT started two weeks before surgery. NOT HIP SURGERY: 1.5 - 2.5 HIP SURGERY: 2 - 3 B) Primary and secondary prevention of venous THROMBOSIS: 2 - 3 C) Active venous thrombosis, pulmonary embolism and prevention of recurrent venous thrombosis: 2 - 3 D) Prevention of arterial thromboembolism including patients with mechanical heart valves: 3 - 4.5 Performed By: #### A 1C WTH eA, HGB, [id number], ALB #### [facility] [address] Ketones Auto test strip (U) [Mass/Vol]Ordered By: Hermes Velez on 08-30-2023 Ketones (U) [Mass/Vol] Negative Negative [facility] Lactate [Moles/volume] in Se rum or PlasmaOrdered By: Tony Comer on 08-30-2023 Lactate [Moles/Vol] 1.9 mmol/L 0.5-2.2 [facility] Comment on above: Result Comment: PERF ORMED BY: [place] [address] PATHOLOGIST CANDY COUNTER CLERK ALAYNA CAPONE M.D. Performed By: #### A 1C WTH eA, HGB, [id number], ALB #### [address] Lactic Acidon 08-30-2023 Lactate [Moles/Vol] 2.4 mmol/L Off scale high 0.5-2.2 [facility] Comment on above: Result Comment: Crit ical Result : Called to and read back by: MADELEINE ANDERSEN at: 08/30/2023 18:47:05 by:LFM PERFORMED BY: [place] [address] PATHOLOGIST CANDY COUNTER CLERK ALAYNA CAPONE M.D. Performed By: #### B BLANK DRILLER #### [address] Leukocytes [#/volume] correc collins for nucleated erythrocytes in Blood by Automated counOrdered By: Hermes Velez on 08-30-2023 WBC corrected for nucl RBC Auto (Bld) [#/Vol] 14.5 10*3/uL 4.1-10.5 [facility] Leukocytes [#/volume] in Blo od by Automated countOrdered By: Hermes Velez on 08-30-2023 WBC (Bld) [#/Vol] 14.5 10*3/uL High 4.1-10.5 [facility] Comment on above: Performed By: #### A 1C WTH eA, HGB, [id number], ALB #### [place] [id number] [place] Lipase [Enzymatic activity/v olume] in Serum or PlasmaOrdered By: Hermes Velez on 08-30-2023 Lipase [Catalytic activity/Vol] 13.0 U/L 11.0-82.0 [facility] Comment on above: Result Comment: PERF ORMED BY: [place] [address] PATHOLOGIST CANDY COUNTER CLERK ALAYNA CAPONE M.D. Performed By: #### B BLANK DRILLER #### [address] Lymphocytes [#/volume] in Bl ood by Automated countOrdered By: Hermes Velez on 08-30-2023 Lymphocytes (Bld) [#/Vol] 0.6 10*3/uL Low 1.00-4.8 [facility] Comment on above: Performed By: #### A 1C WTH eA, HGB, [id number], ALB #### [address] Lymphocytes/100 leukocytes i n Blood by Automated countOrdered By: Hermes Velez on 08-30-2023 Lymphocytes/100 WBC (Bld) 4.4 % Normal . [facility] Comment on above: Performed By: #### A 1C WTH eA, HGB, [id number], ALB #### [address] MCH [Entitic mass] by Automa collins countOrdered By: Hermes Velez on 08-30-2023 MCH (RBC) [Entitic mass] 34.5 pg Normal 27.5-35.2 [facility] Comment on above: Performed By: #### A 1C WTH eA, HGB, [id number], ALB #### [address] MCHC Auto (RBC) [Mass/Vol]Or dered By: Hermes Velez on 08-30-2023 MCHC (RBC) [Mass/Vol] 33.7 g/dL 32.5-35.6 [facility] MCV [Entitic volume] by Auto mated countOrdered By: Hermes Velez on 08-30-2023 MCV (RBC) [Entitic vol] 102.3 fL High 83.5-101 [facility] Comment on above: Performed By: #### A 1C [facility] eA, HGB, [id number], ALB #### [facility] [address] [place] [address] [place] Monocyte distribution width [Entitic volume] in Blood by AutomatedOrdered By: Hermes Velez on 08-30-2023 Monocyte distribution width Auto (Bld) [Entitic vol] 21.88 % High 0.00-20.00 [facility] Comment on above: For adults in ED, MD W > 20.0 may be associated with a higher risk of sepsis during the first 12 hrs of hospital admission Neutrophils [#/volume] in Bl ood by Automated countOrdered By: Hermes Velez on 08-30-2023 Neutrophils (Bld) [#/Vol] 13.4 10*3/uL High 1.8-7.7 [facility] Comment on above: Performed By: #### A 1C [facility] eA, HGB, [id number], ALB #### [facility] [address] Nitrite Test strip Ql (U)Ord ered By: Hermes Velez on 08-30-2023 Nitrite Ql (U) Negative Negative [facility] No Panel InformationOrdered By: Hermes Velez on 08-30-2023 Bacterial ID (NA Multiplex Assay) Presumptive Coag Neg. Staph [facility] Bacterial ID (NA Multiplex Assay) Staphylococcus sp coag neg Abnormal [facility] Estimated GFR (CKD-EPI) > 60.0 mL/Min [facility] Creatinine Clearance (Chem 82.75 [facility] Nucleated erythrocytes [Pres ence] in Blood by Automated countOrdered By: Hermes Velez on 08-30-2023 Nucleated RBC Auto Ql (Bld) 0.0 /100{WBC} 0-0.5 [facility] Partial Thromboplastin Timeo n 08-30-2023 aPTT Coag (Bld) [Time] 25.5 s Normal 25.1-36.5 Th e [facility] Comment on above: Result Comment: A he matocrit value greater than 55% may lead to inaccurate results in coagulation testing. Patients having hematocrit values >55% require a special collection tube for coagulation studies. Please contact the laboratory at [phone] for redraw instructions. PERFORMED BY: [place] [address] PATHOLOGIST CANDY COUNTER CLERK ALAYNA CAPONE M.D. Performed By: #### A 1C WTH eA, HGB, [id number], ALB #### [address] Platelet mean volume [Entiti c volume] in Blood by Automated countOrdered By: Hermes Velez on 08-30-2023 Platelet mean volume (Bld) [Entitic vol] 8.7 fL Normal 6.6-10.1 [facility] Comment on above: Performed By: #### A 1C WTH eA, HGB, [id number], ALB #### [address] Platelets [#/volume] in Bloo d by Automated countOrdered By: Hermes Velez on 08-30-2023 Platelets (Bld) [#/Vol] 147 10*3/uL Low 150-450 [facility] Comment on above: Performed By: #### A 1C WTH eA, HGB, [id number], ALB #### [address] Potassium [Moles/volume] in Serum or PlasmaOrdered By: Hermes Velez on 08-30-2023 Potassium [Moles/Vol] 3.3 mmol/L Low 3.5-5.1 [facility] Comment on above: Performed By: #### B BLANK DRILLER #### [address] Protein Auto test strip (U) [Mass/Vol]Ordered By: Hermes Velez on 08-30-2023 Protein (U) [Mass/Vol] Negative Negative [facility] Protein [Mass/volume] in Ser um or PlasmaOrdered By: Hermes Velez on 08-30-2023 Protein [Mass/Vol] 7.0 g/dL Normal 6.4-8.9 [facility] Comment on above: Performed By: #### B BLANK DRILLER #### [facility] [address] [place] [id number] [facility] Prothrombin time (PT)Ordered By: Hermes Velez on 08-30-2023 PT Coag (PPP) [Time] 12.8 s Normal 9.0-12.9 [facility] Comment on above: A hematocrit value g reater than 55% may lead to inaccurate results in coagulation testing. Patients having hematocrit values >55% require a special collection tube for coagulation studies. Please contact the laboratory at [phone] for redraw instructions. Result Comment: A he matocrit value greater than 55% may lead to inaccurate results in coagulation testing. Patients having hematocrit values >55% require a special collection tube for coagulation studies. Please contact the laboratory at [phone] for redraw instructions. Performed By: #### A 1C WTH eA, HGB, [id number], ALB #### [facility] [address] [place] [id number] [facility] Respiratory (Upper) Panel, P CRon 08-30-2023 Respiratory (Upper) Panel, PCR Adenovirus Not detected Bordetella parapertussis Not detected Chlamydia pneumoniae Not detected Coronavirus 229E Not detected Coronavirus HKU1 Not detected Coronavirus NL63 Not detected Coronavirus OC43 Not detected Influenza A Not detected Influenza B Not detected Human Metapneumovirus Not detected Mycoplasma pneumoniae Not detected Parainfluenza Virus 1 Not detected Parainfluenza Virus 2 Not detected Parainfluenza Virus 3 Not detected Parainfluenza Virus 4 Not detected Bordetella pertussis-ptxP Not detected Human Rhino/Enterovirus Not detected Resp. Syncytial Virus Not detected COVID-19 Detected/Not Detected Not detected Blank Space ---- FLUA TEST INCLUDES Influenza A tests for the following clinically FLUA TEST INCLUDES significant subtypes: FLUA TEST INCLUDES - Influenza A FLUA TEST INCLUDES - Influenza A H1 FLUA TEST INCLUDES - Influenza A H1 2009 FLUA TEST INCLUDES - Influenza A H3 Blank Space ---- PERFORMED BY: [place] [address] PATHOLOGIST CANDY COUNTER CLERK ALAYNA CAPONE M.D. Normal [facility] Comment on above: Performed By: #### A 1C WTH eA, HGB, [id number], ALB #### [address] Respiratory pathogens DNA an d RNA panel - Nasopharynx by ROSIE with non-probe detectionOrdered By: Elliott Talley on 08-30-2023 Respiratory pathogens DNA and RNA panel ROSIE+non-probe (Nph) [facility] Serum globulin measurement b y calculation (mass/volume)Ordered By: Hermes Velez on 08-30-2023 Globulin (S) [Mass/Vol] 2.8 g/dL [facility] Comment on above: Performed By: #### B BLANK DRILLER #### [address] Serum or plasma albumin/glob ulin mass ratioOrdered By: Hermes Velez on 08-30-2023 Albumin/Globulin [Mass ratio] 1.5 {ratio} [facility] Comment on above: Performed By: #### B BLANK DRILLER #### [address] Serum or plasma anion gap de terminationOrdered By: Hermes Velez on 08-30-2023 Anion gap [Moles/Vol] 14.2 mmol/L Normal 6.0-15.0 [facility] Comment on above: Performed By: #### B BLANK DRILLER #### [address] Serum or plasma non-glucuron idated bilirubin measurement (mass/volume)Ordered By: Hermes Velez on 08-30-2023 Bilirubin.indirect [Mass/Vol] 0.7 mg/dL [facility] Sodium [Moles/volume] in Ser um or PlasmaOrdered By: Hermes Velez on 08-30-2023 Sodium [Moles/Vol] 136 mmol/L Normal 136-145 [facility] Comment on above: Performed By: #### B BLANK DRILLER #### [address] Specific gravity Auto test s trip (U) [Rel density]Ordered By: Hermes Velez on 08-30-2023 Specific gravity (U) [Rel density] 1.016 1.001-1.03 0 [facility] Troponin I High Sensitivityo n 08-30-2023 Troponin I High Sensitivity 16.9 pg/mL Normal 0.0-20.0 [facility] Comment on above: Result Comment: PERF ORMED BY: [place] [address] PATHOLOGIST CANDY COUNTER CLERK ALAYNA CAPONE M.D. Performed By: #### U A #### [address] Troponin I High Sensitivity 15.6 pg/mL Normal 0.0-20.0 [facility] Comment on above: Result Comment: PERF ORMED BY: [place] [address] PATHOLOGIST CANDY COUNTER CLERK ALAYNA CAPONE M.D. Performed By: #### A 1C WTH eA, HGB, [id number], ALB #### [address] Troponin I.cardiac [Mass/vol ume] in Serum or Plasma by Detection limit <= 0.01 ng/Ordered By: Erin Suresh on 08-30-2023 Troponin I.cardiac DL <= 0.01 ng/mL [Mass/Vol] 16.9 pg/mL 0.0-20.0 [facility] Urea nitrogen [Mass/volume] in Serum or PlasmaOrdered By: Hermes Velez on 08-30-2023 Urea nitrogen [Mass/Vol] 21 mg/dL Normal 7-25 [facility] Comment on above: Performed By: #### B BLANK DRILLER #### [address] Urinalysison 08-30-2023 Appearance (U) Clear Normal Clear [facility] Comment on above: Order Comment: Name Collection Type:: Clean-Voided Midstream Performed By: #### U A ####[address] [address] [facility] Bilirubin,Urine Negative Normal Negative [facility] Comment on above: Order Comment: Name Collection Type:: Clean-Voided Midstream Performed By: #### U A ####[address] [address] [facility] Glucose Ql (U) Normal Normal Normal [facility] Comment on above: Order Comment: Name Collection Type:: Clean-Voided Midstream Performed By: #### U A ####[address] [address] [facility] Ketones Ql (U) Negative Normal Negative [facility] Comment on above: Order Comment: Name Collection Type:: Clean-Voided Midstream Performed By: #### U A ####[address] [address] [facility] Leukocyte esterase Test strip Ql (U) Negative Normal Negative [facility] Comment on above: Order Comment: Name Collection Type:: Clean-Voided Midstream Performed By: #### U A ####[address] [address] [facility] Nitrite,Urine Negative Normal Negative [facility] Comment on above: Order Comment: Name Collection Type:: Clean-Voided Midstream Performed By: #### U A ####[address] [address] [facility] Occult Blood,Urine Negative Normal Negative [facility] Comment on above: Order Comment: Name Collection Type:: Clean-Voided Midstream Result Comment: PERF ORMED BY: [facility] [address] [place] [address] PATHOLOGIST CANDY COUNTER CLERK ALAYNA CAPONE M.D. Performed By: #### U A ####[address] [address] [place] Protein,Urine Negative Normal Negative [facility] Comment on above: Order Comment: Name Collection Type:: Clean-Voided Midstream Performed By: #### U A ####[place] [id number] [place] [id number] [facility] Specificy [place],Urine 1.016 Normal 1.001-1.03 0 [facility] Comment on above: Order Comment: Name Collection Type:: Clean-Voided Midstream Performed By: #### U A ####[place] [address] [facility] Urobilinogen,Urine Normal Normal Normal [facility] Comment on above: Order Comment: Name Collection Type:: Clean-Voided Midstream Performed By: #### U A ####[address] Urine clarity by refractomet ry automatedOrdered By: Hermes Velez on 08-30-2023 Clarity Refractometry automated (U) Clear Clear [facility] Urine glucose measurement by automated test strip (mass/volume)Ordered By: Hermes Velez on 08-30-2023 Glucose Auto test strip (U) [Mass/Vol] Normal mg/dL Normal [facility] Urine hemoglobin detection b y automated test stripOrdered By: Hermes Velez on 08-30-2023 Hemoglobin Auto test strip Ql (U) Negative Negative [facility] Urine leukocyte esterase det ection by automated test stripOrdered By: Hermes Velez on 08-30-2023 Leukocyte esterase Auto test strip Ql (U) Negative Negative [facility] Urine pH measurement by auto mated test stripOrdered By: Hermes Velez on 08-30-2023 pH (U) 5.5 [pH] 5.0-9.0 [facility] Comment on above: Order Comment: Name Collection Type:: Clean-Voided Midstream Performed By: #### U A ####[place] [address] [facility] Urobilinogen Auto test strip (U) [Mass/Vol]Ordered By: Hermes Velez on 08-30-2023 Urobilinogen (U) [Mass/Vol] Normal mg/dL Normal [facility] [facility] XR chest 1V portableon 08-29 XR chest 1V portable [facility] Main [place] [address] [place] [address] XRay Report Signed Patient: Esme Steven MR#: [id number] : 1960 Acct:[id number] Age/Sex: 62 / M ADM Date: 08/30/23 Loc: ER Room: Type: [facility] ER Attending Dr: Copies to: DO Erin Garcia MD Ordering Provider: Hermes Velez DO Date of Service: 08/30/23 XR/XR chest 1V portable: Chest Pain PORTABLE AP ERECT CHEST 1809 hours CLINICAL HISTORY: Midsternal chest pain, dizziness and headache COMPARISON: 12/31/2012 Median sternotomy wires are present. The heart is borderline prominent. There is no vascular congestion. There is continued mild elevation of the right hemidiaphragm. There is minor basilar atelectasis or scarring. There is no additional consolidation There is no effusion or pneumothorax. The osseous structures are intact. Endplate spurring is seen. XR/XR chest 1V portable IMPRESSION: NO ACUTE FINDINGS Impression dictated by: Gisell Camilo M.D.08/30/2023 7:36 PM Dictation Location: [place] [address] Transcribed By: [facility] 08/30/231935 Dictated By: Gisell Camilo MD 08/30/231932 Signed By: 08/30/231935 Normal [facility] ECG 12 Leadon 08-16-2023 [facility] Work Phone: Sinus with PVC.s [facility] Work Phone: Carbon dioxide, total [Moles /volume] in Serum or PlasmaOrdered By: Antonio Mora on 08-02-2023 CO2 [Moles/Vol] 26.4 mmol/L 21.0-31.0 [facility] Comment on above: Performed By: #### A 1C WTH eA, HGB, [id number], ALB #### [facility] [address] Chloride [Moles/volume] in S ursula or PlasmaOrdered By: Antonio Mora on 08-02-2023 Chloride [Moles/Vol] 102 mmol/L 98-107 [facility] Comment on above: Performed By: #### A 1C WTH eA, HGB, [id number], ALB #### [facility] [address] ECG 12 lead ECGon 08-02-2023 ECG 12 lead ECG [facility] [place] [address] Electrocardiograph Report Signed Patient: Esme Steven MR#: [id number] : 1960 Acct:[id number] Age/Sex: 62 / M ADM Date: 08/02/23 Loc: Room: Type: [facility] Attending Dr: Antonio Mora MD Ordering Provider: Antonio Mora MD Date of Service: 08/02/23 ECG/ECG 12 lead ECG: Pre-cardioversion rhythm assessment Copies to: Test Reason : Blood Pressure : / mmHG Vent. Rate : 088 BPM Atrial Rate : 107 BPM P-R Int : 000 ms QRS Dur : 108 ms QT Int : 380 ms P-R-T Axes : 000 050 125 degrees QTc Int : 459 ms Atrial fibrillation Nonspecific T wave abnormality Abnormal ECG When compared with ECG of 11-OCT-2022 12:14, Atrial fibrillation has replaced Sinus rhythm Borderline criteria for Inferior infarct are no longer present Nonspecific T wave abnormality has replaced inverted T waves in Lateral leads Confirmed by Ada Woodruff ([id number]) on 08/02/2023 5:37:54 PM Referred By: Antonio Mora Electronically Signed By:Ada Woodruff Transcribed By: MUS Signed By Ada Woodruff MD 4 0047 Normal [facility] ECG post procedureon 024 ECG post procedure [facility] [place] [address] Electrocardiograph Report Signed Patient: Esme Steven MR#: [id number] : 1960 Acct:[id number] Age/Sex: 62 / M ADM Date: 08/02/23 Loc: Room: Type: [facility] Attending Dr: Antonio Mora MD Ordering Provider: Antonio Mora MD Date of Service: 08/02/23/ ECG/ECG post procedure: cv Copies to: Test Reason : Blood Pressure : 162/092 mmHG Vent. Rate : 075 BPM Atrial Rate : 075 BPM P-R Int : 190 ms QRS Dur : 106 ms QT Int : 412 ms P-R-T Axes : 039 046 087 degrees QTc Int : 460 ms Normal sinus rhythm Nonspecific T wave abnormality Borderline QT interval Abnormal ECG When compared with ECG of 02-AUG-2023 10:13, (Unconfirmed) premature ventricular complexes are no longer present Confirmed by Ada Woodruff ([id number]) on 08/02/2023 5:38:48 PM Referred By: Antonio Mora Electronically Signed By:Ada Woodruff Transcribed By: MUS Signed By Ada Woodruff MD 4 1738 Normal [facility] Potassium [Moles/volume] in Serum or PlasmaOrdered By: Antonio Mora on 08-02-2023 Potassium [Moles/Vol] 4.1 mmol/L 3.5-5.1 [facility] Comment on above: Performed By: #### A 1C WTH eA, HGB, [id number], ALB #### [address] Serum or plasma anion gap de terminationOrdered By: Antonio Mora on 08-02-2023 Anion gap [Moles/Vol] 13.7 mmol/L 6.0-15.0 [facility] Comment on above: Result Comment: PERF ORMED BY: [place] [address] PATHOLOGIST CANDY COUNTER CLERK ALAYNA CAPONE M.D. Performed By: #### A 1C WTH eA, HGB, [id number], ALB #### [address] [place] [address] [facility] Sodium [Moles/volume] in Ser um or PlasmaOrdered By: Antonio Mora on 08-02-2023 Sodium [Moles/Vol] 138 mmol/L 136-145 [facility] Comment on above: Performed By: #### A 1C WTH eA, HGB, [id number], ALB #### [facility] [address] [place] [id number] [facility] ECG 12 Leadon 07-27-2023 Atrial fibrillation with controlled rate [facility] Work Phone: CNPNon 07-09-2023 CNPN Telephone (RADHA) ----- ESME STEVEN ([id number]) 1960 M Date Time Provider Department 07/09/23 HELADIO PINEDA During your visit today, we recorded the following information about you: Heladio Pineda MD 07/09/2023 7:49 AM Signed Please Call patient if MyChart note not read to review results/released to My Chart if tests completed at [facility]: Low vitamin D maybe associated with fatigue/joint/muscle pain. Start vitamin D script with food, then take over the counter vitamin D 4000 International Units daily with food after script completed. Rest of labs normal and no inflammation. New script sent to pharmacy. Notify office if medication change is not tolerated. Recheck nonfasting labs in 1month and 3months, orders have been placed. Notify office if symptoms improved with steroid? Happy to further review and discuss at follow up visit. Continue rest of treatment plan per instructions at last office visit. Thank you. 07/05/23 low vitamin D 21.4;normal esr 15, crp 0.8, ck 52, aldolase 5.3, vitamin b12-685; 06/28/23 bmd WITHIN THE EXPECTED RANGE FOR AGE Lumbar spine (L1, L2, L3, L4): 1.54 g/cm2, Z-score 2.3 Left Forearm, Distal 1/3 of Radius: 1.089 g/cm2, Z-score 1.5 TRABECULAR BONE ASSESSMENT TBS score: 1.412 Bone micro-architecture: Normal (>1.310) Outside 06/12/23 low mag 1.5;high glucose 117;normal cbc, rest of bmp; 04/18/23 in ED for chronic Afib. 03/05/23 normal esr 9, crp<0.3; Patient's request for medication is as follows: Requested Prescriptions Signed Prescriptions Disp Refills ergocalciferol 50,000 unit capsule (VITAMIN D2, DRISDOL) 16 capsule 0 Sig: (take by mouth with food twice a week, ONE CAPSULE ON SUNDAY AND ONE ON SUNDAY) FOR A TOTAL OF 8 WEEKS. Authorizing Provider: HELADIO PINEDA Prescription(s) as above. Please process accordingly. MD Chino Jeffery Theresa [facility] 07/09/2023 11:58 AM Signed Called and spoke to patient. He is aware of message below from Dr. Pineda. Patient verbalized understanding. Allergies As of Date: 07/09/2023 (No Known Allergies) Date Reviewed: 07/05/2023 Reviewed by: Heladio Pineda MD - Fully Assessed Reason for Visit: Results [95] Primary Visit Diagnosis:PMR (polymyalgia rheumatica) ([facility]) [M35.3] Other Visit Diagnoses:Elevated sed rate [R70.0] Elevated C-reactive protein (CRP) [R79.82] Vitamin D deficiency [E55.9] Order(s):SED RATE WESTERGREN [SQWSR] Order #: [id number] FUTURE C-REACTIVE PROTEIN (CRP) [SQCRP] Order #: [id number] FUTURE VITAMIN D 25 HYDROXY [SQVITD] Order #: [id number] FUTURE ergocalciferol 50,000 unit capsule (VITAMIN D2, DRISDOL)(take by mouth with food twice a week, ONE CAPSULE ON SUNDAY AND ONE ON SUNDAY) FOR A TOTAL OF 8 WEEKS.Disp: 16 capsuleRfl: 0 Prescriptions as of 07/09/2023 - ergocalciferol 50,000 unit capsule (VITAMIN D2, DRISDOL) (take by mouth with food twice a week, ONE CAPSULE ON SUNDAY AND ONE ON SUNDAY) FOR A TOTAL OF 8 WEEKS. - ELIQUIS 5 mg tab(s) TAKE 1 TABLET BY MOUTH EVERY MORNING AND BEFORE BEDTIME FOR 30 DAYS - magnesium oxide (MAG-OX) 400 mg (241.3 mg magnesium) tablet Take 400 mg by mouth. - valACYclovir (VALTREX) 500 mg tablet Take 1 tablet by mouth every afternoon. - escitalopram oxalate (LEXAPRO) 20 mg tablet Take 1 tablet by mouth every afternoon. - colchicine 0.6 mg tablet Take 1tab by mouth up to twice a day as tolerated. May cause diarrhea. - methylPREDNISolone (MEDROL) 4 mg 4 TABLET BY MOUTH EVERY OTHER DAY - celecoxib (CELEBREX) 200 mg capsule Take 1 capsule by mouth every afternoon. - spironolactone-hctz 25/25 (ALDACTAZIDE) 25-25 mg per tablet Take 1 tablet by mouth every morning. - albuterol HFA (PROVENTIL HFA, VENTOLIN HFA) 90 mcg/actuation inhaler inhale 2 puffs by mouth every 6 hours - allopurinol (ZYLOPRIM) 100 mg tablet Take 1 tablet by mouth every afternoon. - aspirin, enteric coated (ASPIRIN, ENTERIC COATED) 81 mg EC tablet Take 81 mg by mouth. - irbesartan (AVAPRO) 150 mg tablet - metoprolol succinate ER (TOPROL XL) 50 mg 24 hr tablet Take 1 tablet by mouth every afternoon. - ALPRAZolam (XANAX) 0.5 mg tablet Take 0.5 mg by mouth daily at bedtime. - atorvastatin (LIPITOR) 80 mg tablet - levothyroxine (SYNTHROID) 150 mcg tablet Take 1 tablet by mouth every afternoon. Problem List As Of Date 07/09/2023 Noted Resolved Swelling of Knee Joint [M25.469] 06/01/2009 Pseudogout [M11.20] 10/29/2013 CAD (coronary artery disease) [I25.10] 10/29/2013 OA (osteoarthritis) [M19.90] 10/29/2013 Hyperlipidemia [E78.5] 10/29/2013 Hypothyroidism [E03.9] 10/29/2013 Pain in right hip [M25.551] 01/05/2023 Rotator cuff arthropathy of left shoulder [M12.*01/05/2023 Bilateral hand pain [M79.641, M79.642] 01/05/2023 Secondary osteoarthritis of multiple sites [M15*01/05/2023 Pseudogout involving multiple joints [M11.89] 01/05/2023 PMR (polymyalgi (more content not included)... Normal [facility] 25(OH)D3 SerPl-mCncon 2023 25-hydroxyvitamin D3 [Mass/Vol] 21.4 ng/mL Low 31.0-80.0 [facility] Comment on above: Order Comment: Speci men Type: BLOOD SPECIMENOrdering Facility: [facility] Address: [address] [place] [address] Result Comment: Clas sification of 25 [place] Vitamin D status: Deficiency/Insufficiency: < or = 30 ng/ml. Sufficiency/Optimal Levels: 31-80 ng/mL Toxicity: > 100 ng/mL. Test performed by chemiluminescent immunoassay. Performed By: #### 1 989-3 ####[facility] [id number] [place] [address] [place] Aldolase SerPl-cCncon 2023 Aldolase [Catalytic activity/Vol] 5.3 mU/mL Normal 1.5-8.1 [facility] Comment on above: Order Comment: Mil rivera Type: BLOOD SPECIMENOrdering Facility: [facility] Address: [address] [place] [address] Result Comment: This test was developed and its performance characteristics determined by [facility]'s [facility] [place] ([facility]). It has not been cleared or approved by the FDA. [facility] is regulated under CLIA as qualified to perform high-complexity testing. This test is used for clinical purposes. It should not be regarded as investigational or for research. Performed By: #### 1 761-6 ####[facility] LABIA [id number] [place] [address] [place] CK SerPl-cCncon 07-05-2023 CK [Catalytic activity/Vol] 52 U/L Normal 51-298 [facility] Comment on above: Order Comment: Speci men Type: BLOOD SPECIMENOrdering Facility: [facility] Address: [address] [place] [address] Performed By: #### 2 157-6, 1988-5, 3084-1, 2132-9 ####[facility] LABCLIA [id number] DONTEMarivel [place]K [id number] [id number] [facility] CNNURSEon 07-05-2023 CNNURSE Nurse Visit (RADHA) ----- ESME STEVEN ([id number]) 1960 M Date Time Provider Department 07/05/23 10:30 AM NURSE BRANDON [facility] GARC[facility] During your visit today, we recorded the following information about you: Referring Provider: HELADIO PINEDA [[id number]] Allergies As of Date: 07/05/2023 (No Known Allergies) Date Reviewed: 07/05/2023 Reviewed by: Ruben Monterroso MA - Fully Assessed Primary Visit Diagnosis:PMR (polymyalgia rheumatica) ([facility]) [M35.3] Prescriptions as of 07/05/2023 - ELIQUIS 5 mg tab(s) TAKE 1 TABLET BY MOUTH EVERY MORNING AND BEFORE BEDTIME FOR 30 DAYS - magnesium oxide (MAG-OX) 400 mg (241.3 mg magnesium) tablet Take 400 mg by mouth. - valACYclovir (VALTREX) 500 mg tablet Take 1 tablet by mouth every afternoon. - escitalopram oxalate (LEXAPRO) 20 mg tablet Take 1 tablet by mouth every afternoon. - colchicine 0.6 mg tablet Take 1tab by mouth up to twice a day as tolerated. May cause diarrhea. - methylPREDNISolone (MEDROL) 4 mg 4 TABLET BY MOUTH EVERY OTHER DAY - celecoxib (CELEBREX) 200 mg capsule Take 1 capsule by mouth every afternoon. - spironolactone-hctz 25/25 (ALDACTAZIDE) 25-25 mg per tablet Take 1 tablet by mouth every morning. - albuterol HFA (PROVENTIL HFA, VENTOLIN HFA) 90 mcg/actuation inhaler inhale 2 puffs by mouth every 6 hours - allopurinol (ZYLOPRIM) 100 mg tablet Take 1 tablet by mouth every afternoon. - aspirin, enteric coated (ASPIRIN, ENTERIC COATED) 81 mg EC tablet Take 81 mg by mouth. - irbesartan (AVAPRO) 150 mg tablet - metoprolol succinate ER (TOPROL XL) 50 mg 24 hr tablet Take 1 tablet by mouth every afternoon. - ALPRAZolam (XANAX) 0.5 mg tablet Take 0.5 mg by mouth daily at bedtime. - atorvastatin (LIPITOR) 80 mg tablet - levothyroxine (SYNTHROID) 150 mcg tablet Take 1 tablet by mouth every afternoon. Problem List As Of Date 07/05/2023 Noted Resolved Swelling of Knee Joint [M25.469] 06/01/2009 Pseudogout [M11.20] 10/29/2013 CAD (coronary artery disease) [I25.10] 10/29/2013 OA (osteoarthritis) [M19.90] 10/29/2013 Hyperlipidemia [E78.5] 10/29/2013 Hypothyroidism [E03.9] 10/29/2013 Pain in right hip [M25.551] 01/05/2023 Rotator cuff arthropathy of left shoulder [M12.*01/05/2023 Bilateral hand pain [M79.641, M79.642] 01/05/2023 Secondary osteoarthritis of multiple sites [M15*01/05/2023 Pseudogout involving multiple joints [M11.89] 01/05/2023 PMR (polymyalgia rheumatica) (HCC) [M35.3] 01/05/2023 Idiopathic chronic gout of multiple sites witho*01/05/2023 halfway current use of 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 [Z79*01/05/2023 CHENCHO positive [R76.8] 01/05/2023 Bilateral hand swelling [M79.89] 01/05/2023 Chronic pain of both knees [M25.561, M25.562, G*03/05/2023 Encounter Status:Closed by MICHEL RUSS on 07/05/23 Normal [facility] CNOVon 07-05-2023 CNOV Office Visit (RADHA ) ----- ESME STEVEN Chrissy ([id number]) 1960 M Date Time Provider Department 07/05/23 9:00 AM HELADIO PINEDA During your visit today, we recorded the following information about you: Pulse Blood pressure Weight 93/minute 114/72 112 kg Heladio Pineda MD 07/05/2023 4:40 PM Signed Face to face fur for joint pain/ osteoarthritis/gout/pseud ogout/ rotator cuff tear/PMR/low vitamin D Today's visit 07/05/23: taking eliquis, OFF medrol since 05/2023, allopurinoll 100mg daily. 2months ago Left knee gout for 2days. yes PMR,unable to lift UEs, unable to pull up bed covers due to UE pain. he denies GCA. No vitamin D. 04/2023 +COVID19 treated with paxlovid, 04/18/23 went into Afib, due to see cardiology soon 06/28/23 bmd WITHIN THE EXPECTED RANGE FOR AGE. limited exercise due to pain. hands swelling. Chronic current pain in UEs worse since off steroids. Reports pain -12/17. Has extended AM stiffness. Feels safe at home. Has enough food, supplies and medications. Overall uncomfortable but happy with rheum care. No falls/fx/trauma/illness/o ral sores/rash/hairloss/jaw pain/dysphagia/epistaxis/ hemoptysis since last visit. No adverse effects with meds. No other complaints. Patient denies fever, chills, cp, dyspnea, nausea, vomiting, night sweats, scalp tenderness, visual changes, delgadillo, bowel/bladder changes, weight changes or other complaints. Last visit supportive care, improved with medrol alternate 4mg AND 2mg every other day/taper if tolerated, see ortho s/p R THR, due for possible left rotator cuff tear repair~06/2023 (stress dose steroids), then may consider trial of dmards/kevzara/did discuss with patient, improved with celebrex/may take when off medrol, OFF prednisone due to adverse effects/bad mood/etc., see ortho, start gout friendly diet, improved with allopurinol, colchicine, see cardiology, start prn heat/ice/otc arthritis creams, low impact weightbearing exercise as tolerated, avoid aggravating triggers, 03/05/23:due for labs. Due for bmd. taking medrol 4tabs daily since last office visit. Interested with weaning off steroids. More Arm soreness when off steroids. Celebrex helps knee pain better than medrol. Only takes celebrex when off steroids. No recent increase in oral steroids. Taking allopurinol 100mg daily, hctz, plavix, colchicine, synthroid, lipitor, irbesartan. S/p R THR. Keloid on incision site. Slight edema. Has compression stockings. no gout, does routinely drink alcohol throughout the week. No GCA symptoms. Doing home PT exercises, off walker and cane. Mild leg edema/ swelling. Chronic current pain in left arm, R upper arm/bicep. Possible 06/2023 left rotator cuff tear repair vs joint replacement. Reports pain 3-10. Has minimal AM stiffness. COVID vaccine 06/04/20, 06/25/20, 04/11/21. Feels safe at home. Has enough food, supplies and medications. Overall mildly uncomfortable but happy with rheum care. No falls/fx/trauma/illness/o ral sores/rash/hairloss/jaw pain/dysphagia/epistaxis/ hemoptysis since last visit. No adverse effects with meds. No other complaints. Patient denies fever, chills, cp, dyspnea, nausea, vomiting, night sweats, scalp tenderness, visual changes, delgadillo, bowel/bladder changes, weight changes or other complaints. Last visit supportive care, improved with medrol 4mg daily/taper offer after right THR ~02/2023 (stress dose steroids), then may consider trial of dmards/kevzara/did discuss with patient, improved with celebrex/may take when off medrol, OFF prednisone due to adverse effects/bad mood/etc., see ortho, start gout friendly diet, improved with allopurinol, colchicine, see cardiology, start prn heat/ice/otc arthritis creams, low impact weightbearing exercise as tolerated, avoid aggravating triggers January 05, 2023 SUBJECTIVE Mr. Steven is a 62 year old male who presents for joint pain eval. 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 Normal [facility] CRP SerPl-mCncon 07-05-2023 CRP [Mass/Vol] 0.8 mg/dL Normal <0.9 [facility] Comment on above: Order Comment: Speci men Type: BLOOD SPECIMENOrdering Facility: [facility] Address: [address] [place] [address] Performed By: #### 2 157-6, 1987-, 3084-1, 2131- ####[facility] LABCLIA [id number] [place] [address] [place] [address] biopsyon 07-05-2023 CT biopsy 5.3 U/L 1.5-8.1 [facility] Comment on above: This test was develo ped and its performance characteristics determined by [facility]'s Sarai M[facility] [place] ([facility]). It has not been cleared or approved by the FDA. [facility] is regulated under CLIA as qualified to perform high-complexity testing. This test is used for clinical purposes. It should not be regarded as investigational or for research. ESR Westergren method (Bld) [Velocity]on 07-05-2023 ESR (Bld) [Velocity] 15 mm/h Normal 0-15 [facility] Comment on above: Order Comment: Speci men Type: BLOOD SPECIMENOrdering Facility: [facility] Address: [address] [place] [address] Performed By: #### 4 537-7 ####[facility] LABCLIA [id number] [place] [address] [place] Laboratory - Chemistry and C hemistry - challengeon 07-05-2023 CK [Catalytic activity/Vol] 52 U/L 51-298 [facility] Cobalamin (Vitamin B12) [Mass/Vol] 685 pg/mL 232-1245 [facility] Urate [Mass/Vol] 7.2 mg/dL 4.0-8.1 [facility] Laboratory - Hematology and Cell countson 07-05-2023 ESR (Bld) [Velocity] 15 mm/h 0-15 [facility] No Panel Informationon 07-04 C-Reactive Protein, Quantitative 0.8 mg/dL <0.9 [facility] Serum or plasma calcidiol me asurement (mass/volume)on 07-05-2023 25-hydroxyvitamin D3 [Mass/Vol] 21.4 ng/mL 31.0-80.0 [facility] Comment on above: Classification of 25 [place] Vitamin D status: Deficiency/Insufficiency: < or = 30 ng/ml.Sufficiency/Optimal Levels: 31-80 ng/mLToxicity: > 100 ng/mL. Test performed by chemiluminescent immunoassay. Urate SerPl-mCncon Urate [Mass/Vol] 7.2 mg/dL Normal 4.0-8.1 [facility] Comment on above: Order Comment: Mil rivera Type: BLOOD SPECIMENOrdering Facility: [facility] Address: [address] [place], [place] [id number] Performed By: #### 2 157-6, 1987-08, 3083-04, 2131-12 ####[facility] LABCLIA [id number] [place] [address] [place] Vit B12 SerPl-mCncon 024 Cobalamin (Vitamin B12) [Mass/Vol] 685 pg/mL Normal 232-1245 [facility] Comment on above: Order Comment: Mil nicole Type: BLOOD SPECIMENOrdering Facility: [facility] Address: [address] [place], [place] [address] [address] Performed By: #### 2 157-6, 1987-08, 3083-04, 2131-12 ####[facility] LABCLIA [id number] [address] [place] CNPLesly 06-30-2023 CNPN Telephone (RADHA) ----- ESME STEVEN ([id number]) 1960 M Date Time Provider Department 06/30/23 HELADIO PINEDA During your visit today, we recorded the following information about you: Heladio Pineda MD 06/30/2023 5:58 PM Addendum Please Call patient if MyChart note not read to review results/released to My Chart if tests completed at [facility]: Normal bone mineral density. Mildly low magnesium- increase intake, care per primary care provider. Rest of labs normal. Please Recheck nonfasting inflammatory tests in this month (please link 04/06/23 labs), orders have been placed. Happy to further review and discuss at follow up visit. Continue rest of treatment plan per instructions at last office visit. Thank you. 06/28/23 bmd WITHIN THE EXPECTED RANGE FOR AGE Lumbar spine (L1, L2, L3, L4): 1.54 g/cm2, Z-score 2.3 Left Forearm, Distal 1/3 of Radius: 1.089 g/cm2, Z-score 1.5 TRABECULAR BONE ASSESSMENT TBS score: 1.412 Bone micro-architecture: Normal (>1.310) Outside 06/12/23 low mag 1.5;high glucose 117;normal cbc, rest of bmp; 04/18/23 in ED for chronic Afib. 03/05/23 normal esr 9, crp<0.3; Korin Mott 07/02/2023 9:19 AM Signed Called and spoke with patient. Patient scheduled to see Dr. Pineda this patient going t [facility] Allergies As of Date: 06/30/2023 (No Known Allergies) Date Reviewed: 03/05/2023 Reviewed by: Heladio Pineda MD - Fully Assessed Reason for Visit: Results [95] Orders [681] Prescriptions as of 07/02/2023 - methylPREDNISolone (MEDROL) 4 mg ALTERNATE 1 TABLET AND 1/2 TABLET BY MOUTH EVERY OTHER DAY - celecoxib (CELEBREX) 200 mg capsule Take 1 capsule by mouth every afternoon. - spironolactone-hctz 25/25 (ALDACTAZIDE) 25-25 mg per tablet Take 1 tablet by mouth every morning. - albuterol HFA (PROVENTIL HFA, VENTOLIN HFA) 90 mcg/actuation inhaler inhale 2 puffs by mouth every 6 hours - allopurinol (ZYLOPRIM) 100 mg tablet Take 1 tablet by mouth every afternoon. - aspirin, enteric coated (ASPIRIN, ENTERIC COATED) 81 mg EC tablet Take 81 mg by mouth. - escitalopram oxalate (LEXAPRO) 10 mg tablet Take 1 tablet by mouth every afternoon. - irbesartan (AVAPRO) 150 mg tablet - metoprolol succinate ER (TOPROL XL) 50 mg 24 hr tablet Take 1 tablet by mouth every afternoon. - ALPRAZolam (XANAX) 0.5 mg tablet Take 0.5 mg by mouth daily at bedtime. - atorvastatin (LIPITOR) 80 mg tablet - levothyroxine (SYNTHROID) 150 mcg tablet Take 1 tablet by mouth every afternoon. Problem List As Of Date 06/30/2023 Noted Resolved Swelling of Knee Joint [M25.469] 06/01/2009 Pseudogout [M11.20] 10/29/2013 CAD (coronary artery disease) [I25.10] 10/29/2013 OA (osteoarthritis) [M19.90] 10/29/2013 Hyperlipidemia [E78.5] 10/29/2013 Hypothyroidism [E03.9] 10/29/2013 Pain in right hip [M25.551] 01/05/2023 Rotator cuff arthropathy of left shoulder [M12.*01/05/2023 Bilateral hand pain [M79.641, M79.642] 01/05/2023 Secondary osteoarthritis of multiple sites [M15*01/05/2023 Pseudogout involving multiple joints [M11.89] 01/05/2023 PMR (polymyalgia rheumatica) (HCC) [M35.3] 01/05/2023 Idiopathic chronic gout of multiple sites 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 [Z79*01/05/2023 CHENCHO positive [R76.8] 01/05/2023 Bilateral hand swelling [M79.89] 01/05/2023 Chronic pain of both knees [M25.561, M25.562, G*03/05/2023 Encounter Status:Closed by KORIN MOTT on 07/02/23 Normal [facility] BD DXA - AXIAL SKELETONon BD DXA - AXIAL SKELETON * * *Final Report* * * DATE OF EXAM: Jun 28 2023 12:56PM LAUREANO 08Gilmer - BD DXA - AXIAL SKELETON / PROCEDURE REASON: multiple diagnoses * * * * Physician Interpretation * * * * EXAMINATION: DXA BONE DENSITOMETRY BD DXA - AXIAL SKELETON, BD DXA - FOREARM SKELETON PATIENT DEMOGRAPHICS: Age: 62 years, Gender: Male SCANNER INFORMATION: DXA Model: Koubachi Date Scanned: 06/28/2023 12:56 PM 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 RISK FACTORS FOR OSTEOPOROSIS AND ASSOCIATED FRACTURES REPORTED BY THIS PATIENT: Please refer to Bone Health Questionnaire in the EMR CURRENT THERAPY: Please refer to Bone Health Questionnaire in the EMR TECHNICAL LIMITATIONS: RESULTS: Lumbar spine (L1, L2, L3, L4): 1.54 g/cm2, Z-score 2.3 Left Forearm, Distal 1/3 of Radius: 1.089 g/cm2, Z-score 1.5 No comparison data - the patient has not had a previous bone density in the [facility] or the previous bone density was performed on a different DXA machine (new, updated model or different location) within the [facility]. VERTEBRAL FRACTURE ASSESSMENT Not performed. TRABECULAR BONE ASSESSMENT TBS score: 1.412 Bone micro-architecture: Normal (>1.310) IMPRESSION: THE LOWEST Z-SCORE IS 1.5 IN THE LEFT FOREARM 1) DIAGNOSIS (based on BMD alone): WITHIN THE EXPECTED RANGE FOR AGE -Caution: medical conditions other than osteoporosis may cause low bone density, such as osteomalacia or renal osteodystrophy. Clinical correlation is necessary. 2) FRACTURE RISK (based on BMD alone): Fracture data based solely on BMD is not available in this age group to make this assessment. However, fracture risk may be increased independent of BMD, particularly in patients taking corticosteroids or patients with a prior fragility fracture. RECOMMENDATIONS: Follow-up as clinically indicated. Patients that are taking corticosteroids, are transplant recipients or have hyperparathyroidism should have annual follow-up. Follow-up scans should always be done on the same machine for accurate comparison. FOR MORE INFORMATION ABOUT DIAGNOSIS AND TREATMENT: [facility] for Osteoporosis and Metabolic Bone Disease:? www.ccf.org/arthritis/ost eo National Osteoporosis Foundation:? www.nof.org International Society of Clinical Densitometry www.iscd.org Terminal Press Operator: RAQUEL Transcribe Date/Time: Jun 28 2023 1:37P Dictated by : KEREN BRAVO DO This examination was interpreted and the report reviewed and electronically signed by: KEREN BRAVO DO on Jun 28 2023 1:47PM EST [id number] [facility] BD DXA - FOREARM SKELETONon 06-28-2023 BD DXA - FOREARM SKELETON * * *Final Report* * * DATE OF EXAM: Jun 28 2023 12:59PM LAUREANO 0870 - BD DXA - FOREARM SKELETON / PROCEDURE REASON: multiple diagnoses * * * * Physician Interpretation * * * * EXAMINATION: DXA BONE DENSITOMETRY BD DXA - AXIAL SKELETON, BD DXA - FOREARM SKELETON PATIENT DEMOGRAPHICS: Age: 62 years, Gender: Male SCANNER INFORMATION: DXA Model: Koubachi Date Scanned: 06/28/2023 12:56 PM 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 RISK FACTORS FOR OSTEOPOROSIS AND ASSOCIATED FRACTURES REPORTED BY THIS PATIENT: Please refer to Bone Health Questionnaire in the EMR CURRENT THERAPY: Please refer to Bone Health Questionnaire in the EMR TECHNICAL LIMITATIONS: RESULTS: Lumbar spine (L1, L2, L3, L4): 1.54 g/cm2, Z-score 2.3 Left Forearm, Distal 1/3 of Radius: 1.089 g/cm2, Z-score 1.5 No comparison data - the patient has not had a previous bone density in the [facility] or the previous bone density was performed on a different DXA machine (new, updated model or different location) within the [facility]. VERTEBRAL FRACTURE ASSESSMENT Not performed. TRABECULAR BONE ASSESSMENT TBS score: 1.412 Bone micro-architecture: Normal (>1.310) IMPRESSION: THE LOWEST Z-SCORE IS 1.5 IN THE LEFT FOREARM 1) DIAGNOSIS (based on BMD alone): WITHIN THE EXPECTED RANGE FOR AGE -Caution: medical conditions other than osteoporosis may cause low bone density, such as osteomalacia or renal osteodystrophy. Clinical correlation is necessary. 2) FRACTURE RISK (based on BMD alone): Fracture data based solely on BMD is not available in this age group to make this assessment. However, fracture risk may be increased independent of BMD, particularly in patients taking corticosteroids or patients with a prior fragility fracture. RECOMMENDATIONS: Follow-up as clinically indicated. Patients that are taking corticosteroids, are transplant recipients or have hyperparathyroidism should have annual follow-up. Follow-up scans should always be done on the same machine for accurate comparison. FOR MORE INFORMATION ABOUT DIAGNOSIS AND TREATMENT: [facility] for Osteoporosis and Metabolic Bone Disease:? www.ccf.org/arthritis/ost eo National Osteoporosis Foundation:? www.nof.org International Society of Clinical Densitometry www.iscd.org Terminal Press Operator: RAQUEL Transcribe Date/Time: Jun 28 2023 1:37P Dictated by : KEREN BRAVO DO This examination was interpreted and the report reviewed and electronically signed by: KEREN BRAVO DO on Jun 28 2023 1:47PM EST [id number] Normal [facility] DXA Radius and Ulna [Mass/Ar ea] Bone densityon 06-28-2023 [facility] DXA Skeletal system.axial Vi ews for bone densityon 06-28-2023 [facility] BASIC METABOLIC PANLon 06-11 Anion gap [Moles/Vol] 10 mmol/L Normal 5-15 [facility] Comment on above: Performed By: #### RAIMUNDO Wong BCA, #### [facility] ([id number]) [address], [address] [place] [address] Calcium [Mass/Vol] 9.3 mg/dL Normal 8.5-10.5 [facility] Comment on above: Performed By: #### RAIMUNDO Wong BCA, 51782-8 #### [facility] ([id number]) [address], [address] [place] [address] Chloride [Moles/Vol] 102 mmol/L Normal 98-109 [facility] Comment on above: Performed By: #### RAIMUNDO Wong BCA, 49759-8 #### [facility] ([id number]) [address], [address] [place] [address] CO2 [Moles/Vol] 25 mmol/L Normal 22-32 [facility] Comment on above: Performed By: #### RAIMUNDO Wong BCA, #### [facility] ([id number]) [address], [address] [place] [address] Creatinine [Mass/Vol] 0.95 mg/dL Normal 0.60-1.30 [facility] Comment on above: Result Comment: METH OD TRACEABLE TO IDMS STANDARD Performed By: #### RAIMUNDO Wong BCA, #### [facility] ([id number]) [address], [address] [place] [address] GFR/1.73 sq M.predicted among non-blacks MDRD (S/P/Bld) [Vol rate/Area] 90 mL/min/{1.73_m2} Normal >59 [facility] Comment on above: Result Comment: Reported eGFR is based on the CKD-EPI 2020 equation that does not use a race coefficient. Performed By: #### RAIMUNDO Wong BCA, 19953-6 #### [facility] ([id number]) [address], [address] [place] [address] Glucose [Mass/Vol] 117 mg/dL High 65-99 [facility] Comment on above: Performed By: #### RAIMUNDO Wong BCA, #### [facility] ([id number]) [address], [address] [place] [address] Potassium [Moles/Vol] 3.9 mmol/L Normal 3.5-5.0 [facility] Comment on above: Performed By: #### RAIMUNDO Wong BCA, #### [facility] ([id number]) [address], [address] [place] [address] Sodium [Moles/Vol] 137 mmol/L Normal 134-146 [facility] Comment on above: Performed By: #### Marvin [facility]OLDSMITH [facility], 49587-9 #### [facility] ([id number]) [address], [address] [place] [address] Urea nitrogen [Mass/Vol] 20 mg/dL Normal 5-27 [facility] Comment on above: Performed By: #### Marvin [facility]DS[facility]ITH [facility], #### [facility] ([id number]) [address], [address] [place] [address] CBC AND AUTO DIFFon 06-12-19 24 ABSOLUTE BASOPHIL 0.1 X10E9/L Normal 0.0-0.2 [facility] Comment on above: Performed By: #### RAIMUNDO Wong BCA, 79978-5 #### [facility] ([id number]) [address], [address] [place] [address] ABSOLUTE NEUTROPHIL 5.9 X10E9/L Normal 1.5-6.6 [facility] Comment on above: Performed By: #### RAIMUNDO Wong BCA, #### [facility] ([id number]) [address], [address] [place] [address] Basophils/100 WBC (Bld) 0.6 % Normal [facility] Comment on above: Performed By: #### RAIMUNDO Wong BCA, #### [facility] ([id number]) [address], [address] [place] [address] Eosinophils (Bld) [#/Vol] 0.1 10*3/uL Normal 0.0-0.4 [facility] Comment on above: Performed By: #### RAIMUNDO Wong BCA, #### [facility] ([id number]) [address], [address] [place] [address] Eosinophils/100 WBC (Bld) 1.0 % Normal [facility] Comment on above: Performed By: #### RAIMUNDO Wong BCA, #### [facility] ([id number]) [address] [place] [address] Erythrocyte distribution width (RBC) [Ratio] 14.4 % Normal 11.5-15.0 [facility] Comment on above: Performed By: #### RAIMUNDO Wong BCA, #### [facility] ([id number]) [address], [address] [place] [address] Hematocrit (Bld) [Volume fraction] 46.6 % Normal 39-49 [facility] Comment on above: Performed By: #### RAIMUNDO Wong BCA, #### [facility] ([id number]) [address], [address] [place] [address] Hemoglobin (Bld) [Mass/Vol] 15.6 g/dL Normal 13.0-17.0 [facility] Comment on above: Performed By: #### RAIMUNDO Wong BCA, #### [facility] ([id number]) [address], [address] [place] [address] Lymphocytes (Bld) [#/Vol] 2.2 10*3/uL Normal 1.0-3.5 [facility] Comment on above: Performed By: #### RAIMUNDO Wong BCA, #### [facility] ([id number]) [address], [address] [place] [address] Lymphocytes/100 WBC (Bld) 25.1 % Normal [facility] Comment on above: Performed By: #### RAIMUNDO Wong BCA, #### [facility] ([id number]) [address], [address] [place] [address] MCH (RBC) [Entitic mass] 33.5 pg Normal 27-34 [facility] Comment on above: Performed By: #### RAIMUNDO Wong BCA, #### [facility] ([id number]) [address], [address] [place] [address] MCHC (RBC) [Mass/Vol] 33.4 g/dL Normal 32-36 [facility] Comment on above: Performed By: #### RAIMUNDO Wong BCA, #### [facility] ([id number]) [address], [address] [place] [address] MCV (RBC) [Entitic vol] 100 fL Normal 80-100 [facility] Comment on above: Performed By: #### RAIMUNDO Wong BCA, #### [facility] ([id number]) [address], [address] [place] [address] Monocytes (Bld) [#/Vol] 0.7 10*3/uL Normal 0-0.9 [facility] Comment on above: Performed By: #### RAIMUNDO Wong BCA, #### [facility] ([id number]) [address], [address] [place] [address] Monocytes/100 WBC (Bld) 7.5 % Normal [facility] Comment on above: Performed By: #### Marvin GOLDSMITH, BMP, #### [facility] ([id number]) [address], [address] [place] [address] Neutrophils/100 WBC (Bld) 65.8 % Normal [facility] Comment on above: Performed By: #### Marvin GOLDSMITH, BMP, #### [facility] ([id number]) [address] [place] [address] Platelet mean volume (Bld) [Entitic vol] 9.3 fL Normal 7-12 [facility] Comment on above: Performed By: #### Marvin GOLDSMITH, [facility], #### [facility] ([id number]) [address], [address] [place] [address] Platelets (Bld) [#/Vol] 216 10*3/uL Normal 150-450 [facility] Comment on above: Performed By: #### Marvin GOLDSMITH, BMP, #### [facility] ([id number]) [address] [place] [address] RBC COUNT 4.65 X10E12/L Normal 4.10-5.70 [facility] Comment on above: Performed By: #### Marvin GOLDSMITH, BMP, #### [facility] ([id number]) [address], [address] [place] [address] WBC (Bld) [#/Vol] 8.9 10*3/uL Normal 4.0-11.0 [facility] Comment on above: Performed By: #### Marvin GOLDSMITH, BMP, #### [facility] ([id number]) [address], [address] [place] [address] MAGNESIUMon 06-12-2023 Magnesium [Mass/Vol] 1.5 mg/dL Low 1.8-2.[address] [facility] Comment on above: Performed By: #### C MP, PINR, 32552-2, 58202-3, CBCA, 74733-5, 81736-0 #### [facility] ([id number]) [address] [facility] [place] [address] US venous duplex LE BIon US venous duplex LE BI [facility] [address] [place] [address] [place] [address] Ultrasound Report Signed Patient: Esme Steven MR#: [id number] : 1960 Acct:[id number] Age/Sex: 62 / M ADM Date: 05/21/23 Loc: Room: Type: [facility] Attending Dr: Melinda SOLORZANO Ordering Provider: SUSANA Deal Date of Service: 05/21/23 US/US venous duplex LE BI: Pain due to internal orthopedic prosthetic devices, implants Copies to: SUSANA Deal BILATERAL LOWER EXTREMITY VENOUS DUPLEX INDICATION: Bilateral lower extremity edema, pain and tenderness. PROCEDURE: Color-flow duplex scanning is used to interrogate the deep venous system of the right and left lower extremities. The common femoral vein, femoral vein and popliteal vein show good compressibility with normal proximal and distal augmentation. The calf veins are compressible. US/US venous duplex LE BI IMPRESSION: NO EVIDENCE FOR DEEP VEIN THROMBOSIS OR PROXIMAL SUPERFICIAL THROMBOPHLEBITIS IN THE RIGHT OR LEFT LOWER EXTREMITY. Impression dictated by: Tony Rock MD05/22/2023 1:38 PM Dictation Location: [place] [address] Tech: Yeni Rico Transcribed By: GWEN 05/22/23 1338 Dictated By: Tony Rock MD 05/22/23 1338 Signed By: 05/22/23 1338 Normal [facility] Automated basophil %Ordered By: Mleinda Verduzco on 05-21-2023 Basophils/100 WBC (Bld) 0.6 % Normal . [facility] Comment on above: Order Comment: Reaso n for Exam Pain due to internal orthopedic prosthetic devices, implants Performed By: #### C BC, CRP, ESR, DDIMER ####[address] Automated basophil countOrde red By: Melinda Luba on 05-21-2023 Basophils (Bld) [#/Vol] 0.1 10*3/uL Normal 0.0-0.2 [facility] Comment on above: Order Comment: Reaso n for Exam Pain due to internal orthopedic prosthetic devices, implants Performed By: #### C BC, CRP, ESR, DDIMER ####[address] Automated blood monocyte cou ntOrdered By: Melinda Verduzco on 05-21-2023 Monocytes (Bld) [#/Vol] 1.0 10*3/uL High 0.0-0.8 [facility] Comment on above: Order Comment: Reaso n for Exam Pain due to internal orthopedic prosthetic devices, implants Performed By: #### C BC, CRP, ESR, DDIMER ####[address] Automated eosinophil %Ordere d By: Melinda Verduzco on 05-21-2023 Eosinophils/100 WBC (Bld) 0.4 % Normal . [facility] Comment on above: Order Comment: Reaso n for Exam Pain due to internal orthopedic prosthetic devices, implants Performed By: #### C BC, CRP, ESR, DDIMER ####[place] [address] [facility] Automated eosinophil countOr dered By: Melinda Verduzco on 05-21-2023 Eosinophils (Bld) [#/Vol] 0.1 10*3/uL Normal 0.0-0.45 [facility] Comment on above: Order Comment: Reaso n for Exam Pain due to internal orthopedic prosthetic devices, implants Performed By: #### C BC, CRP, ESR, DDIMER ####[place] [address] [place] [address] [facility] Automated monocyte %Ordered By: Melinda Verduzco on 05-21-2023 Monocytes/100 WBC (Bld) 6.8 % Normal . [facility] Comment on above: Order Comment: Reaso n for Exam Pain due to internal orthopedic prosthetic devices, implants Performed By: #### C BC, CRP, ESR, DDIMER ####[address] [address] [facility] Automated neutrophil %Ordere d By: Melinda Verduzco on 05-21-2023 Neutrophils/100 WBC (Bld) 78.3 % Normal . [facility] Comment on above: Order Comment: Reaso n for Exam Pain due to internal orthopedic prosthetic devices, implants Performed By: #### C BC, CRP, ESR, DDIMER ####[address] [address] [facility] C reactive protein [Mass/vol ume] in Serum or PlasmaOrdered By: Melinda Verduzco on 05-21-2023 CRP [Mass/Vol] 0.5 mg/dL 0.0-0.5 [facility] C-Reactive Proteinon 024 C-Reactive Protein 0.5 mg/dL Normal 0.0-0.5 [facility] Comment on above: Order Comment: Reaso n for Exam Pain due to internal orthopedic prosthetic devices, implants Result Comment: PERF ORMED BY: [facility] [address] [place] [id number] PATHOLOGIST CANDY COUNTER CLERK AALYNA CAPONE M.D. Performed By: #### C BC, CRP, ESR, DDIMER ####[address] [address] [facility] Complete Blood Count Auto Di ffon 05-21-2023 Mean Corpuscular HGB Conc 33.1 g/dL Normal 32.5-35.6 [facility] Comment on above: Order Comment: Reaso n for Exam Pain due to internal orthopedic prosthetic devices, implants Performed By: #### C BC, CRP, ESR, DDIMER ####[place] [address] [facility] NRBC% 0.1 /100{WBC} Normal 0-0.5 [facility] Comment on above: Order Comment: Reaso n for Exam Pain due to internal orthopedic prosthetic devices, implants Performed By: #### C BC, CRP, ESR, DDIMER ####[place] [address] [place] [id number] [facility] D-Dimer High Sensitivityon 0 05-21-2023 D-Dimer High Sensitivity 213 ng/mL Normal 0-243 [facility] Comment on above: Order Comment: Reaso n for Exam Pain due to internal orthopedic prosthetic devices, implants Result Comment: The reference range for D-dimer is <243 ng/mL D-dimer units. D-dimer results must be used in conjunction with a clinical pretest probability (PTP) assessment model for deep vein thrombosis (DVT) and pulmonary embolism (PE). Results <230 ng/mL d-dimer units can be used as a negative predictor in patients with low or moderate probability for DVT/PE. Results above the exclusion threshold of 230 ng/ml D-dimer units for DVT/PE may indicate the need for further diagnostic testing. D-Dimer can be increased in hospitalized patients due to co-morbid conditions. A hematocrit value greater than 55% may lead to inaccurate results in coagulation testing. Patients having hematocrit values >55% require a special collection tube for coagulation studies. Please contact the laboratory at [phone] for redraw instructions. PERFORMED BY: [facility] [address] [place] [id number] PATHOLOGIST CANDY COUNTER CLERK ALAYNA CAPONE M.D. Performed By: #### C BC, CRP, ESR, DDIMER ####[place] [address] [place] [id number] [facility] Erythrocyte Sedimentation Ra kip 05-21-2023 ESR (Bld) [Velocity] 16 mm/h Normal 0-19 [facility] Comment on above: Order Comment: Reaso n for Exam Pain due to internal orthopedic prosthetic devices, implants Result Comment: PERF ORMED BY: [facility] [address] [place] [id number] PATHOLOGIST CANDY COUNTER CLERK ALAYNA CAPONE M.D. Performed By: #### C BC, CRP, ESR, DDIMER ####[facility] [place] [id number] [facility] Erythrocyte distribution wid th [Ratio] by Automated countOrdered By: Melinda Verduzco on 05-21-2023 Erythrocyte distribution width (RBC) [Ratio] 14.5 % Normal 12.0-14.8 [facility] Comment on above: Order Comment: Reaso n for Exam Pain due to internal orthopedic prosthetic devices, implants Performed By: #### C BC, CRP, ESR, DDIMER ####[place] [address] [place] [id number] [facility] Erythrocyte sedimentation ra te by Photometric methodOrdered By: Melinda Verduzco on 05-21-2023 ESR Photometric method (Bld) [Velocity] 16 mm/hr 0-19 [facility] Erythrocytes [#/volume] in B lood by Automated countOrdered By: Melinda Verduzco on 05-21-2023 RBC (Bld) [#/Vol] 4.68 10*6/uL Normal 3.90-5.60 [facility] Comment on above: Order Comment: Reaso n for Exam Pain due to internal orthopedic prosthetic devices, implants Performed By: #### C BC, CRP, ESR, DDIMER ####[place] [id number] Fibrin D-dimer [Presence] in Platelet poor plasma by Latex agglutinationOrdered By: Melinda Verduzco on 05-21-2023 Fibrin D-dimer LA Ql (PPP) 213 ng/mL 0-243 [facility] Comment on above: The reference range for D-dimer is <243 ng/mL D-dimer units.D-dimer results must be used in conjunction with a clinicalpretest probability (PTP) assessment model for deep veinthrombosis (DVT) and pulmonary embolism (PE). Results <230ng/mL d-dimer units can be used as a negative predictor inpatients with low or moderate probability for DVT/PE.Results above the exclusion threshold of 230 ng/ml D-dimerunits for DVT/PE may indicate the need for furtherdiagnostic testing.D-Dimer can be increased in hospitalized patients due toco-morbid conditions.A hematocrit value greater than 55% may lead to inaccurate results in coagulation testing. Patients having hematocrit values >55% require a special collection tube for coagulation studies. Please contact the laboratory at [phone] for redraw instructions. Hematocrit [Volume Fraction] of Blood by Automated countOrdered By: Melinda Verduzco on 05-21-2023 Hematocrit (Bld) [Volume fraction] 47.1 % Normal 38.8-50.0 [facility] Comment on above: Order Comment: Reaso n for Exam Pain due to internal orthopedic prosthetic devices, implants Performed By: #### C BC, CRP, ESR, DDIMER ####[address] [address] [facility] Hemoglobin [Mass/volume] in BloodOrdered By: Melinda Verduzco on 05-21-2023 Hemoglobin (Bld) [Mass/Vol] 15.6 g/dL Normal 13.0-17.0 [facility] Comment on above: Order Comment: Reaso n for Exam Pain due to internal orthopedic prosthetic devices, implants Performed By: #### C BC, CRP, ESR, DDIMER ####[address] [place] [address] [facility] Leukocytes [#/volume] correc collins for nucleated erythrocytes in Blood by Automated counOrdered By: Melinda Verduzco on 05-21-2023 WBC corrected for nucl RBC Auto (Bld) [#/Vol] 15.1 10*3/uL 4.1-10.5 [facility] Leukocytes [#/volume] in Blo od by Automated countOrdered By: Melinda Verduzco on 05-21-2023 WBC (Bld) [#/Vol] 15.1 10*3/uL High 4.1-10.5 [facility] Comment on above: Order Comment: Reaso n for Exam Pain due to internal orthopedic prosthetic devices, implants Performed By: #### C BC, CRP, ESR, DDIMER ####[address] [address] [place] Lymphocytes [#/volume] in Bl ood by Automated countOrdered By: Melinda Verduzco on 05-21-2023 Lymphocytes (Bld) [#/Vol] 2.1 10*3/uL Normal 1.00-4.8 [facility] Comment on above: Order Comment: Reaso n for Exam Pain due to internal orthopedic prosthetic devices, implants Performed By: #### C BC, CRP, ESR, DDIMER ####[address] Lymphocytes/100 leukocytes i n Blood by Automated countOrdered By: Melinda Verduzco on 05-21-2023 Lymphocytes/100 WBC (Bld) 13.9 % Normal . [facility] Comment on above: Order Comment: Reaso n for Exam Pain due to internal orthopedic prosthetic devices, implants Performed By: #### C BC, CRP, ESR, DDIMER ####[address] MCH [Entitic mass] by Automa collins countOrdered By: Melinda Verduzco on 05-21-2023 MCH (RBC) [Entitic mass] 33.3 pg Normal 27.5-35.2 [facility] Comment on above: Order Comment: Reaso n for Exam Pain due to internal orthopedic prosthetic devices, implants Performed By: #### C BC, CRP, ESR, DDIMER ####[address] MCHC Auto (RBC) [Mass/Vol]Or dered By: Melinda Verduzco on 05-21-2023 MCHC (RBC) [Mass/Vol] 33.1 g/dL 32.5-35.6 [facility] MCV [Entitic volume] by Auto mated countOrdered By: Melinda Verduzco on 05-21-2023 MCV (RBC) [Entitic vol] 100.7 fL Normal 83.5-101 [facility] Comment on above: Order Comment: Reaso n for Exam Pain due to internal orthopedic prosthetic devices, implants Performed By: #### C BC, CRP, ESR, DDIMER ####[address] Neutrophils [#/volume] in Bl ood by Automated countOrdered By: Melinda Verduzco on 05-21-2023 Neutrophils (Bld) [#/Vol] 11.8 10*3/uL High 1.8-7.7 [facility] Comment on above: Order Comment: Reaso n for Exam Pain due to internal orthopedic prosthetic devices, implants Performed By: #### C BC, CRP, ESR, DDIMER ####[address] [place] [id number] [facility] Nucleated erythrocytes [Pres ence] in Blood by Automated countOrdered By: Melinda Verduzco on 05-21-2023 Nucleated RBC Auto Ql (Bld) 0.1 /100{WBC} 0-0.5 [facility] Platelet mean volume [Entiti c volume] in Blood by Automated countOrdered By: Melinda Verduzco on 05-21-2023 Platelet mean volume (Bld) [Entitic vol] 8.7 fL Normal 6.6-10.1 [facility] Comment on above: Order Comment: Reaso n for Exam Pain due to internal orthopedic prosthetic devices, implants Performed By: #### C BC, CRP, ESR, DDIMER ####[address] [facility] Platelets [#/volume] in Bloo d by Automated countOrdered By: Melinda Verduzco on 05-21-2023 Platelets (Bld) [#/Vol] 228 10*3/uL Normal 150-450 [facility] Comment on above: Order Comment: Reaso n for Exam Pain due to internal orthopedic prosthetic devices, implants Performed By: #### C BC, CRP, ESR, DDIMER ####[address] [facility] XR knee LT 3V - NOT FOR ER U Florentino 05-21-2023 XR knee LT 3V - NOT FOR ER USE [facility] [address] [place] [address] [place] [address] XRay Report Signed Patient: Esme Steven MR#: [id number] : 1960 Acct:[id number] Age/Sex: 62 / M ADM Date: 05/21/23 Loc: [facility] [place] Room: Type: [facility] Attending Dr: Sarai Mendez II, MD Copies to: Sarai Mendez MD Ordering Provider: Sarai Mendez MD Date of Service: 05/21/23 XR/XR knee LT 3V - NOT FOR ER USE: PAIN LEFT KNEE - 3 views CLINICAL HISTORY: Left knee pain. COMPARISON: None FINDINGS: No knee joint effusion. No hardware complication. No acute bony process. XR/XR knee LT 3V - NOT FOR ER USE IMPRESSION: NO HARDWARE COMPLICATION. NO ACUTE BONY PROCESS. Impression dictated by: Alex Castro Jr., DBarbaraOBarbara05/21/2023 3:12 PM Dictation Location: [place] [address] Transcribed By: [facility] 05/21/23 151 Dictated By: Alex Castro Jr, DO 05/21/231510 Signed By: 05/21/23 151 Normal [facility] XR hip RT min 2V(w/wo pelvis )*on 05-16-2023 XR hip RT min 2V(w/wo pelvis)* [facility] [address] [place] [address] [place] [address] XRay Report Signed Patient: Esme Steven MR#: [id number] : 1960 Acct:[id number] Age/Sex: 62 / M ADM Date: 05/16/23 Loc: [facility] [place] Room: Type: [facility] Attending Dr: Sarai Mendez II, MD Copies to: Sarai Mendez MD Ordering Provider: Sarai Mendez MD Date of Service: 05/16/23 XR/XR hip RT min 2V(w/wo pelvis)*: Aftercare following joint replacement surgery;Presence of ri AP PELVIS WITH RIGHT HIP - 2 views: CLINICAL HISTORY: Follow-up hip replacement COMPARISON: 03/29/2023 AP weightbearing view of the pelvis and crosstable lateral view of the right hip views were obtained. Patient has bilateral hip prostheses. The hardware appears intact and unchanged from the prior. There is no developing fracture or dislocation. Degenerative changes in prior laminectomy defects are seen at the lower imaged lumbar spine. There are no significant soft tissue abnormalities. XR/XR hip RT min 2V(w/wo pelvis)* IMPRESSION: STABLE HIP PROSTHESES Impression dictated by: Gisell Camilo M.D.05/16/2023 3:53 PM Dictation Location: [place] [address] Transcribed By: [facility] 05/16/231552 Dictated By: Gisell Camilo MD 05/16/23 153 Signed By: 05/16/23 155 Normal [facility] CBC AND AUTO DIFFon 04-18-19 ABSOLUTE BASOPHIL 0.1 X10E9/L Normal 0.0-0.2 [facility] Comment on above: Performed By: #### C MP, PINR, 51869-6, 71339-6, CBCA, 38505-7, 74141-9 #### [facility] ([id number]) [address] [place] [address] ABSOLUTE NEUTROPHIL 10.9 X10E9/L High 1.5-6.6 [facility] Comment on above: Performed By: #### C MP, PINR, 23377-8, 91731-2, CBCA, 49539-9, 88809-7 #### [facility] ([id number]) [address] [place] [address] 267[address] Basophils/100 WBC (Bld) 0.4 % Normal [facility] Comment on above: Performed By: #### C MP, PINR, 57633-8, 03510-7, CBCA, 74861-3, 36299-8 #### [facility] ([id number]) [address] [place] [address] Eosinophils (Bld) [#/Vol] 0.0 10*3/uL Normal 0.0-0.4 [facility] Comment on above: Performed By: #### C MP, PINR, 39591-5, 68383-8, CBCA, 74583-4, 05177-4 #### [facility] ([id number]) [address] [place] [address] Eosinophils/100 WBC (Bld) 0.3 % Normal [facility] Comment on above: Performed By: #### C MP, PINR, 56589-3, 10508-2, CBCA, 60967-0, 35030-7 #### [facility] ([id number]) [address] [place] [address] Erythrocyte distribution width (RBC) [Ratio] 14.2 % Normal 11.5-15.0 [facility] Comment on above: Performed By: #### C MP, PINR, 16849-3, 45043-7, CBCA, 99352-3, 33653-6 #### [facility] ([id number]) [address] [place] [address] Hematocrit (Bld) [Volume fraction] 49.6 % High 39-49 [facility] Comment on above: Performed By: #### C MP, PINR, 35777-3, 74703-0, CBCA, 06556-2, 26158-0 #### [facility] ([id number]) [address] [place] [address] Hemoglobin (Bld) [Mass/Vol] 16.7 g/dL Normal 13.0-17.0 [facility] Comment on above: Performed By: #### C MP, PINR, 18721-0, 69082-6, CBCA, 55217-4, 73422-8 #### [facility] ([id number]) [address] [place] [address] Lymphocytes (Bld) [#/Vol] 1.6 10*3/uL Normal 1.0-3.5 [facility] Comment on above: Performed By: #### C MP, PINR, 38259-9, 62482-7, CBCA, 57489-9, 31361-3 #### [facility] ([id number]) [address] [place] [address] Lymphocytes/100 WBC (Bld) 11.9 % Normal [facility] Comment on above: Performed By: #### C MP, PINR, 84982-5, 24376-1, CBCA, 16237-8, 00119-7 #### [facility] ([id number]) [address] [place] [address] 100[address] MCH (RBC) [Entitic mass] 34.1 pg High 27-34 [facility] Comment on above: Performed By: #### C MP, PINR, 28415-6, 88354-5, CBCA, 60637-4, 25730-6 #### [facility] ([id number]) [address] [place] [address] MCHC (RBC) [Mass/Vol] 33.7 g/dL Normal 32-36 [facility] Comment on above: Performed By: #### C MP, PINR, 95879-7, 74879-9, CBCA, 49062-4, 16953-9 #### [facility] ([id number]) [address] [place] [address] MCV (RBC) [Entitic vol] 101 fL High 80-100 [facility] Comment on above: Performed By: #### C MP, PINR, 80764-7, , CBCA, 28521-8, 30292-3 #### [facility] ([id number]) [address] [place] [address] 91[address] Monocytes (Bld) [#/Vol] 0.5 10*3/uL Normal 0-0.9 [facility] Comment on above: Performed By: #### C MP, PINR, 16655-0, 25859-7, CBCA, 95137-1, 02517-0 #### [facility] ([id number]) [address] [place] [address] 01169 Monocytes/100 WBC (Bld) 3.7 % Normal [facility] Comment on above: Performed By: #### C MP, PINR, 34924-3, 32855-6, CBCA, 67614-2, 30814-4 #### [facility] ([id number]) [address] [place] [address] 04824 Neutrophils/100 WBC (Bld) 83.7 % Normal [facility] Comment on above: Performed By: #### C MP, PINR, 27174-3, 95405-3, CBCA, 99733-4, 20288-9 #### [facility] ([id number]) [address] [place] [address] 628[address] Platelet mean volume (Bld) [Entitic vol] 8.5 fL Normal 7-12 [facility] Comment on above: Performed By: #### C MP, PINR, 13227-4, 12120-5, CBCA, 62949-1, 78120-4 #### [facility] ([id number]) [address] [place] [address] 38139 Platelets (Bld) [#/Vol] 264 10*3/uL Normal 150-450 [facility] Comment on above: Performed By: #### C MP, PINR, 36411-2, 62746-1, CBCA, 77805-8, 55370-9 #### [facility] ([id number]) [address] [place] [address] 32895 RBC COUNT 4.89 X10E12/L Normal 4.10-5.70 [facility] Comment on above: Performed By: #### C MP, PINR, 09963-5, 32864-1, CBCA, 61035-3, 14321-7 #### [facility] ([id number]) [address] [place] [address] 27790 WBC (Bld) [#/Vol] 13.0 10*3/uL High 4.0-11.0 [facility] Comment on above: Performed By: #### C MP, PINR, 08141-2, 63653-6, CBCA, 55232-8, 72719-6 #### [facility] ([id number]) [address] [place] [address] 13367 COMPREHENSIVE METABOLIC PANE Jose 04-18-2023 Albumin [Mass/Vol] 4.4 g/dL Normal 3.2-5.3 [facility] Comment on above: Performed By: #### C MP, PINR, 12152-8, 16566-2, CBCA, 71952-4, 61114-7 #### [facility] ([id number]) [address] [place] [address] 30463 ALP [Catalytic activity/Vol] 69 U/L Normal 39-130 [facility] Comment on above: Performed By: #### C MP, PINR, 97647-4, 53133-4, CBCA, 82681-0, 85163-9 #### [facility] ([id number]) [address] [place] [address] 09650 ALT [Catalytic activity/Vol] 31 U/L Normal 0-40 [facility] Comment on above: Performed By: #### C MP, PINR, 12766-3, 98418-5, CBCA, 80101-6, 02521-6 #### [facility] ([id number]) [address] [place] [address] 66400 Anion gap [Moles/Vol] 9 mmol/L Normal 5-15 [facility] Comment on above: Performed By: #### C MP, PINR, 77852-5, 28070-2, CBCA, 72994-3, 49745-5 #### [facility] ([id number]) [address] [place] [address] 24977 AST [Catalytic activity/Vol] 26 U/L Normal 0-41 [facility] Comment on above: Performed By: #### C MP, PINR, 75124-5, 72995-9, CBCA, 17817-7, 41898-3 #### [facility] ([id number]) [address] [place] [address] 71249 Bilirubin [Mass/Vol] 0.8 mg/dL Normal 0.3-1.2 [facility] Comment on above: Performed By: #### C MP, PINR, 13516-2, 06688-7, CBCA, 57043-3, 00804-0 #### [facility] ([id number]) [address] [place] [address] 72950 Calcium [Mass/Vol] 9.6 mg/dL Normal 8.5-10.5 [facility] Comment on above: Performed By: #### C MP, PINR, 91286-6, 81205-7, CBCA, 06942-2, 50702-0 #### [facility] ([id number]) [address] [place] [address] 26134 Chloride [Moles/Vol] 99 mmol/L Normal 98-109 [facility] Comment on above: Performed By: #### C MP, PINR, 63079-0, 54159-3, CBCA, 73874-9, 37028-5 #### [facility] ([id number]) [address] [place] [address] 78842 CO2 [Moles/Vol] 24 mmol/L Normal 22-32 [facility] Comment on above: Performed By: #### C MP, PINR, 57298-5, 72633-5, CBCA, 68035-9, 35762-4 #### [facility] ([id number]) [address] [place] [address] 41335 Creatinine [Mass/Vol] 1.26 mg/dL High 0.70-1.20 [facility] Comment on above: Result Comment: METH OD TRACEABLE TO IDMS STANDARD Performed By: #### C MP, PINR, 99161-7, 05957-7, CBCA, 97980-3, 21206-9 #### [facility] ([id number]) [address] [place] [address] 88219 GFR/1.73 sq M.predicted among non-blacks MDRD (S/P/Bld) [Vol rate/Area] 64 mL/min/{1.73_m2} Normal >59 [facility] Comment on above: Result Comment: Reported eGFR is based on the CKD-EPI 2020 equation that does not use a race coefficient. Performed By: #### C MP, PINR, 46139-9, 51011-5, CBCA, 35496-1, 00592-4 #### [facility] ([id number]) [address] [place] [address] 38183 Glucose [Mass/Vol] 196 mg/dL High 65-99 [facility] Comment on above: Performed By: #### C MP, PINR, 15220-1, 29456-7, CBCA, 09705-6, 16153-3 #### [facility] ([id number]) [address] [place] [address] 02051 Potassium [Moles/Vol] 3.8 mmol/L Normal 3.5-5.0 [facility] Comment on above: Performed By: #### C MP, PINR, 28593-7, 50583-9, CBCA, 76162-6, 09969-1 #### [facility] ([id number]) [address] [place] [address] 25109 Protein [Mass/Vol] 7.7 g/dL Normal 6.0-8.0 [facility] Comment on above: Performed By: #### C MP, PINR, 17803-9, 46682-2, CBCA, 97439-0, 14085-7 #### [facility] ([id number]) [address] [place] [address] 16860 Sodium [Moles/Vol] 132 mmol/L Low 134-146 [facility] Comment on above: Performed By: #### C MP, PINR, 66873-9, 62878-5, CBCA, 16612-8, 67744-2 #### [facility] ([id number]) [address] [place] [address] 40548 Urea nitrogen [Mass/Vol] 40 mg/dL High 5-27 [facility] Comment on above: Performed By: #### C MP, PINR, 69503-7, 27243-1, CBCA, 35377-8, 72701-7 #### [facility] ([id number]) [address] [place] [address] 29950 MAGNESIUMon 04-18-2023 Magnesium [Mass/Vol] 1.7 mg/dL Low 1.8-2.6 [facility] Comment on above: Performed By: #### C MP, PINR, 41371-0, 21056-6, CBCA, 96551-3, 44011-2 #### [facility] ([id number]) [address] [place] [address] 99329 Natriuretic peptide B [Mass/ Vol]on 04-18-2023 Natriuretic peptide B (Bld) [Mass/Vol] 206 pg/mL High <100.0 [facility] Comment on above: Performed By: #### C MP, PINR, 43527-8, 89236-5, CBCA, 40977-1, 65634-7 #### [facility] ([id number]) [address] [place] [address] 56100 PROTIME AND INRon 04-18-2023 INR Coag (PPP) [Relative time] 1.1 {INR} Normal 0.8-1.1 [facility] Comment on above: Performed By: #### C MP, PINR, 19869-7, 63724-0, CBCA, 47048-9, 53387-4 #### [facility] ([id number]) [address] [place] [address] 31211 PT Coag (PPP) [Time] 12.3 s Normal 9.8-13.2 [facility] Comment on above: Result Comment: NEW REFERENCE RANGE Performed By: #### C MP, PINR, 76885-0, 38978-3, CBCA, 03834-5, 99808-5 #### [facility] ([id number]) [address] [place] [address] 24171 TROPONIN Ion 04-18-2023 Troponin I.cardiac [Mass/Vol] 0.01 ng/mL Normal 0.00-0.04 [facility] Comment on above: Performed By: #### C MP, PINR, 77739-6, 99038-6, CBCA, 93109-6, 29080-9 #### [facility] ([id number]) [address] [place] [address] 01174 aPTT Coag (PPP) [Time]on aPTT Coag (Bld) [Time] 28 s Normal 26-37 [facility] Comment on above: Result Comment: NEW REFERENCE RANGE Performed By: #### C MP, PINR, 51202-6, 39246-4, CBCA, 63314-9, 63413-0 #### [facility] ([id number]) [address] [place] [address] 94229 XR hip RT min 2V(w/wo pelvis )*on 03-29-2023 XR hip RT min 2V(w/wo pelvis)* [facility] Main [address] [address] XRay Report Signed Patient: Esme Steven MR#: [id number] : 1960 Acct:[id number] Age/Sex: 62 / M ADM Date: 03/29/23 Loc: [facility] [place] Room: Type: [facility] Attending Dr: Sarai Mendez II, MD Copies to: Sarai Mendez MD Ordering Provider: Sarai Mendez MD Date of Service: 03/29/23 XR/XR hip RT min 2V(w/wo pelvis)*: Aftercare following joint replacement surgery;Presence of ri XR hip RT min 2V(w/wo pelvis)* 03/29/2023 12:21 PM SIGNS AND SYMPTOMS: Status post total right hip arthroplasty hardware placement, follow-up PROTOCOL: Frontal radiograph the pelvis with crosstable lateral view of the right hip COMPARISON: 02/13/2023 FINDINGS: Total hip arthroplasty hardware is present bilaterally without evidence of fracture, dislocation, or hardware complication. The bony ring of the pelvis is intact. XR/XR hip RT min 2V(w/wo pelvis)* IMPRESSION: Uncomplicated total hip arthroplasty hardware. Impression dictated by: Rubio Vazquez M.D.03/29/2023 4:28 PM Dictation Location: [facility]--14 Transcribed By: GWEN 03/29/231627 Dictated By: Rubio Vazquez II, MD 03/29/231626 Signed By: 03/29/231627 Normal [facility] Tuyet 03-07-2023 VICKIE Telephone (RADHA) ----- ESME STEVEN ([id number]) 1960 M Date Time Provider Department 03/07/23 HELADIO PINEDA During your visit today, we recorded the following information about you: Heladio Pineda MD 03/07/2023 4:31 PM Signed Please Call patient if MyChart note not read to review results/released to My Chart if tests completed at [facility]: normal labs and no inflammation. Continue same vitamin D intake with food. Take medrol alternate 4mg and 2mg every other day. Notify office if medication change is not tolerated. Recheck nonfasting labs in 1month, orders have been placed. Happy to further review and discuss at follow up visit. Continue rest of treatment plan per instructions at last office visit. Thank you. 03/05/23 normal esr 9, crp<0.3; Kerry Andersen GEMINI 03/07/2023 5:26 PM Signed Pt identified by name and Pt notified of below message and verbalizes understanding. Patient wanted to remind you he is on Allopurinol not cholchicine Heladio Pineda MD 03/08/2023 9:35 AM Signed Than you for update. Please review medlist with patient and update/remove medications patient not taking Thank you. Ruben Monterroso MA 03/08/2023 11:14 AM Signed LMTCRuben Renae MA 03/12/2023 1:34 PM Signed LMTCB Aretha Bryant MA 03/13/2023 10:32 AM Signed Allopurinol 100mg is on current med list Colchicine removed Aretha Bryant MA 03/13/2023 10:32 AM Signed Addended by: ARETHA BRYANT on: 03/13/2023 10:32 AM Modules accepted: Orders Allergies As of Date: 03/07/2023 (No Known Allergies) Date Reviewed: 03/05/2023 Reviewed by: Heladio Pineda MD - Fully Assessed Reason for Visit: Results [95] Primary Visit Diagnosis:PMR (polymyalgia rheumatica) (HCC) [M35.3] Other Visit Diagnoses:Elevated sed rate [R70.0] Elevated C-reactive protein (CRP) [R79.82] Order(s):SED RATE WESTERGREN [SQWSR] Order #: [id number] FUTURE C-REACTIVE PROTEIN (CRP) [SQCRP] Order #: [id number] FUTURE Prescriptions as of 03/13/2023 - celecoxib (CELEBREX) 200 mg capsule Take 1 capsule by mouth every afternoon. - spironolactone-hctz 25/25 (ALDACTAZIDE) 25-25 mg per tablet Take 1 tablet by mouth every morning. - methylPREDNISolone (MEDROL) 2 mg tablet Alternate 4mg and 2mg every other day - albuterol HFA (PROVENTIL HFA, VENTOLIN HFA) 90 mcg/actuation inhaler inhale 2 puffs by mouth every 6 hours - allopurinol (ZYLOPRIM) 100 mg tablet Take 1 tablet by mouth every afternoon. - aspirin, enteric coated (ASPIRIN, ENTERIC COATED) 81 mg EC tablet Take 81 mg by mouth. - escitalopram oxalate (LEXAPRO) 10 mg tablet Take 1 tablet by mouth every afternoon. - irbesartan (AVAPRO) 150 mg tablet - metoprolol succinate ER (TOPROL XL) 50 mg 24 hr tablet Take 1 tablet by mouth every afternoon. - ALPRAZolam (XANAX) 0.5 mg tablet Take 0.5 mg by mouth daily at bedtime. - atorvastatin (LIPITOR) 80 mg tablet - levothyroxine (SYNTHROID) 150 mcg tablet Take 1 tablet by mouth every afternoon. Problem List As Of Date 03/07/2023 Noted Resolved Swelling of Knee Joint [M25.469] 06/01/2009 Pseudogout [M11.20] 10/29/2013 CAD (coronary artery disease) [I25.10] 10/29/2013 OA (osteoarthritis) [M19.90] 10/29/2013 Hyperlipidemia [E78.5] 10/29/2013 Hypothyroidism [E03.9] 10/29/2013 Pain in right hip [M25.551] 01/05/2023 Rotator cuff arthropathy of left shoulder [M12.*01/05/2023 Bilateral hand pain [M79.641, M79.642] 01/05/2023 Secondary osteoarthritis of multiple sites [M15*01/05/2023 Pseudogout involving multiple joints [M11.89] 01/05/2023 PMR (polymyalgia rheumatica) (HCC) [M35.3] 01/05/2023 Idiopathic chronic gout of multiple sites witho*01/05/2023 halfway current use of 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 [Z79*01/05/2023 CHENCHO positive [R76.8] 01/05/2023 Bilateral hand swelling [M79.89] 01/05/2023 Chronic pain of both knees [M25.561, M25.562, G*03/05/2023 Medications Discontinued During This Encounter Prescriptions - colchicine 0.6 mg ORAL tablet (Discontinued) Take one(1) tablet daily. Encounter Status:Closed by KERRY ANDERSEN on 03/07/[address] [facility] CNOVon 03-05-2023 CNOV Office Visit (RADHA ) ----- YAMILEXESME URBANO ([id number]) 1960 M Date Time Provider Department 03/05/23 2:00 PM HELADIO PINEDA During your visit today, we recorded the following information about you: Pulse Blood pressure Weight 110/minute 124/81 106.6 kg Heladio Pineda MD 03/05/2023 1:14 PM Signed May apply over the counter arthritis creams and or patches (biofreeze, icy hot, asper cream, tiger balm, capsacin, lidocaine, salon pas, voltaren gel, etc.) or over the counter pain patches to painful joints up to four times a day. Avoid contact with eyes. May take Extra Strength acetaminophen 500mg every 4-6hours for joint pain. Do not exceed 3000mg /day. Decrease stress Improve sleep May apply heat/ice 20minutes on and off to areas of pain Avoid aggravating triggers If needed, may take Calcium 1200mg daily with food in DIVIDED doses If labs normal, take Vitamin D 4000 International Units daily with food Medrol daily with food Recommend goal: exercising 30minutes 3-5 times a week Recommend weight-bearing aerobic exercises such as walking, dancing, low impact aerobics, elliptical machine, stair climbing, gardening, biking, water exercises flexibility exercises and strength training exercises Recommend avoiding high impact exercises such as jumping, running or jogging or movements where you bend forward and twist the waist, for instance- touching your toes, sit-ups, using row machine detention pain recommendations per primary care provider/pain clinic Nonfasting labs as scheduled Thank you. BONE MINERAL DENSITY PATIENT INSTRUCTIONS Bone mineral density testing measures the amount of calcium in certain parts of your bones. This information determines how strong your bones are. The test is used to detect osteoporosis, a disease in which the bone's mineral content and density are low, increasing a person's risk of fractures. The lumbar spine (lower back) and the hip are the skeletal sites usually examined. For the test, remember that: 1. You cannot take this test if you are . 2. Eat a normal diet on the day of the test. 3. Take your medications as you normally would. 4. DO NOT take calcium supplements (such as Tums) for 24 hours before the test. 5. On the day of the test, leave valuables (jewelry or credit cards) at home. 6. The test should be performed prior to oral, rectal or IV contrast studies, or at least 7 days after any of these studies. For the test, you may be asked to wear a hospital gown. You will lie on your back, on a padded table, in a comfortable position. Generally, you can resume your usual activities immediately. Component Latest Ref Rng AND Units 01/05/2023 Protein, Total 6.3 - 8.0 g/dL 7.1 Albumin 3.9 - 4.9 g/dL 4.9 Calcium 8.5 - 10.2 mg/dL 10.3 (H) Bilirubin, Total 0.2 - 1.3 mg/dL 0.7 Alkaline Phosphatase 38 - 113 U/L 57 AST 14 - 40 U/L 16 ALT 10 - 54 U/L 27 Glucose 74 - 99 mg/dL 120 (H) BUN 9 - 24 mg/dL 20 Creatinine 0.73 - 1.22 mg/dL 0.98 Sodium 136 - 144 mmol/L 137 Potassium 3.7 - 5.1 mmol/L 4.3 Chloride 97 - 105 mmol/L 98 CO2 22 - 30 mmol/L 24 Anion Gap 9 - 18 mmol/L 15 eGFR >=60 mL/min/1.73mA? 87 WBC 3.70 - 11.00 k/uL 12.21 (H) RBC 4.20 - 6.00 m/uL 4.58 Hemoglobin 13.0 - 17.0 g/dL 16.3 Hematocrit 39.0 - 51.0 % 48.7 MCV 80.0 - 100.0 fL 106.3 (H) MCH 26.0 - 34.0 pg 35.6 (H) MCHC 30.5 - 36.0 g/dL 33.5 RDW-CV 11.5 - 15.0 % 12.9 Platelet Count 150 - 400 k/uL 207 MPV 9.0 - 12.7 fL 10.7 Absolute nRBC <0.01 k/uL <0.01 TB Nil <=8.00 IU/mL 0.03 TB1 Ag minus Nil <0.35 IU/mL 0.01 TB2 Ag minus Nil <0.35 IU/mL 0.04 TB Result Negative Mitogen minus Nil >=0.50 IU/mL >9.97 TB Interpretation Infection with M. tuberculosis complex is unlikely. If latent tuberculosis infection is highly suspected, a negative result does not rule out the infection. Specimens from immunocompromised patients and those <5 years of age may show false negative results. In case of a contact investigation, please repeat 8-12 weeks after a known exposure. CCP Antibody IgG Qualitative Negative Negative CCP Antibody, IgG <20 Units <15 Hep B Surface Ab, Qual Negative Hep B Surf Ab Quant mIU/mL <8.00 Rheumatoid Factor <16 IU/mL <10 CHENCHO Negative Negative WSR 0 - 15 mm/hr 2 CRP <0.9 mg/dL <0.3 Vitamin D 25 Hydroxy 31.0 - 80.0 ng/mL 29.6 (L) Vitamin B12 232 - 1,245 pg/mL 343 Uric Acid 4.0 - 8.1 mg/dL 6.1 Aldolase 1.5 - 8.1 U/L 6.1 CK 51 - 298 U/L 35 (L) Hep C Antibody IA Negative Negative Hep B Surface Ag Negative Negative Hep B Core Ab, Total Negative Negative Heladio Pineda MD 03/05/2023 3:32 PM Addendum Face to face fur for joint pain/ osteoarthritis/gout/pseud ogout/ rotator cuff tear/PMR/low vitamin D Today's visit 03/05/23:due for labs. Due for bmd. taking medrol 4tabs daily since last of (more content not included)... Normal [facility] CRP SerPl-kendrickon 03-05-2023 CRP [Mass/Vol] mg/L Normal <0.9 [facility] Comment on above: Order Comment: Speci men Type: BLOOD SPECIMENOrdering Facility: [facility] Address: [address] [place], [place] [id number] Performed By: #### 1 [phone] ####[facility] LABCLIA [id number] [facility] ERK [address] OF [place] ESR Westergren method (Bld) [Velocity]on 03-05-2023 ESR (Bld) [Velocity] 9 mm/h Normal 0-15 [facility] Comment on above: Order Comment: Speci men Type: BLOOD SPECIMENOrdering Facility: [facility] Address: [address] [place] [address] Performed By: #### 4 [id number] ####[facility] LABCLIA [id number] [address] OF [facility] Jose 02-13-2023 L ----- Specimen: [id number] Received: 02/13/23 Status: ESTEFANIA Tatiana Num: [id number] Spec Type: Surgical Subm Dr: Sarai Mendez MD Tissues: A Femoral Head - Other than Fracture (RT HIP) Procedures: HE/2, Gross/Micro L3, Decalcification Age/ Patient Sex Location Account Attending Physician Esme Steven 62/M [place] [id number] Sarai Mendez MD SPEC NUM: [id number] RECD: 02/13/23 STATUS: ESTEFANIA MINA NUM: [id number] DEUCE: 02/13/[address] [facility] [address]: Sarai Mendez MD ENTERED: 02/13/[address]: JASS TYPE: Surgical DEPT: S ORDERED: HE/2, Gross/Micro L3, Decalcification ORDERED: HE/2, Gross/Micro L3, Decalcification Pathological Diagnosis Right hip bone and soft tissue, arthroplasty: - Right femoral head with severe degenerative osteoarthritis displaying patchy articular erosion and cortical eburnation with severe diffuse serous atrophy and patchy mild subcortical fibrosis and occasional small subcortical cystic degenerations, in addition to a large wedge portion of the associated and/or 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 The femoral head is a smooth to granular calero-red articular surface. Focal eburnation is identified. The cut surface is yellow-calero, focally hyperemic, trabecular with a well-demarcated 4.7 cm area of pale discoloration subjacent to the articular surface. Thinning of the articular cartilage is identified. Chemistry Quality Control Technician are submitted following decalcification in two cassettes labeled A1-A2. Specimen: [id number] Received: 02/13/23 Status: ESTEFANIA Mina Num: [id number] Spec Type: Surgical Subm Dr: Sarai Mendez MD Tissues: A Femoral Head - Other than Fracture (RT HIP) Procedures: HE/2, Gross/Micro L3, Decalcification Patient: Esme Steven [id number] (Continued) Specimen: [id number] Received: 02/13/23 (Continued) Signed (signature on file) Sean Hubbard MD 02/14/23 1701 Specimen: [id number] Received: 02/13/23 Status: ESTEFANIA Mina Num: [id number] Spec Type: Surgical Subm Dr: Sarai Mendez MD Tissues: A Femoral Head - Other than Fracture (RT HIP) Procedures: HE/2, Gross/Micro L3, Decalcification Patient: Esme Steven [id number] (Continued) Specimen: [id number] Received: 02/13/23 (Continued) Microscopic Description Two H E slides reviewed. The microscopic examination confirms the diagnosis. CPT Codes 68483, 07465 Specimen: [id number] Received: 02/13/23 Status: ESTEFANIA Mina Num: [id number] Spec Type: Surgical Subm Dr: Sarai Mendez MD Tissues: A Femoral Head - Other than Fracture (RT HIP) Procedures: HE/2, Gross/Micro L3, Decalcification Patient: Esme Steven [id number] (Continued) Signed (signature on file) Sean Hubbard MD 02/14/23 1701 Normal [facility] XR hip RT 1Von 02-13-2023 XR hip RT 1V [facility] [place] [address] XRay Report Signed Patient: Esme Steven MR#: [id number] : 1960 Acct:[id number] Age/Sex: 62 / M ADM Date: 02/13/23 Loc: DC Room: Type: [facility] Attending Dr: Sarai Mendez II, MD Copies to: Sarai Mendez MD Ordering Provider: Sarai Mendez MD Date of Service: 02/13/23 XR/XR hip RT 1V: . ([id number]) XR/XR low pelvis w/RT x-table hip: Total Hip, due in PACU CLINICAL DATA: Degenerative change at the right hip PORTABLE RIGHT HIP - 6 images COMPARISON: 10/26/2022 Multiple spot films of the right hip were obtained before, during and after placement of a right hip prosthesis. As visualized, the hardware appears intact and in appropriate position. No acute fracture or dislocation is seen. Cumulative Air Kerma in mGy: 5.75 mGy LOW PELVIS WITH RIGHT HIP - 2 views COMPARISON: 10/26/2022 AP view the low pelvis and crosstable lateral view of the right hip were obtained. Patient now has bilateral hip prostheses. The hardware appears intact and in appropriate position. No acute fractures or dislocation are seen. There is mild subcutaneous postoperative air lateral to the right hip. XR/XR low pelvis w/RT x-table hip IMPRESSION: SATISFACTORY POSTOPERATIVE APPEARANCE OF RIGHT HIP REPLACEMENT. Impression dictated by: Gisell Camilo M.D.02/13/2023 10:54 AM Dictation Location: [place] [address] Transcribed By: [facility] 02/13/23 1054 Dictated By: Gisell Camilo MD 02/13/23 1050 Signed By: 02/13/23 1054 Normal [facility] Automated basophil %Ordered By: Sarai Mendez on 01-29-2023 Basophils/100 WBC (Bld) 0.6 % Normal . [facility] Comment on above: Performed By: #### C BC #### [facility] [address] [place] [address] Automated basophil countOrde red By: Sarai Mendez on 01-29-2023 Basophils (Bld) [#/Vol] 0.1 10*3/uL Normal 0.0-0.2 [facility] Comment on above: Result Comment: PERF ORMED BY: [place] [address] PATHOLOGIST CANDY COUNTER CLERK ALAYNA CAPONE M.D. Performed By: #### C BC #### [facility] [address] [place] [address] Automated blood monocyte cou ntOrdered By: Sarai Mendez on 01-29-2023 Monocytes (Bld) [#/Vol] 0.6 10*3/uL Normal 0.0-0.8 [facility] Comment on above: Performed By: #### C BC #### [address] Automated eosinophil %Ordere d By: Sarai Mendez on 01-29-2023 Eosinophils/100 WBC (Bld) 0.4 % Normal . [facility] Comment on above: Performed By: #### C BC #### [address] Automated eosinophil countOr dered By: Sarai Mendez on 01-29-2023 Eosinophils (Bld) [#/Vol] 0.0 10*3/uL Normal 0.0-0.45 [facility] Comment on above: Performed By: #### C BC #### [address] Automated monocyte %Ordered By: Sarai Mendez on 01-29-2023 Monocytes/100 WBC (Bld) 5.3 % Normal . [facility] Comment on above: Performed By: #### C BC #### [address] Automated neutrophil %Ordere d By: Sarai Mendez on 01-29-2023 Neutrophils/100 WBC (Bld) 83.2 % Normal . [facility] Comment on above: Performed By: #### C BC #### [address] Complete Blood Count Auto Di ffon 01-29-2023 Mean Corpuscular HGB Conc 33.8 g/dL Normal 32.5-35.6 [facility] Comment on above: Performed By: #### C BC #### [address] NRBC% 0.1 /100{WBC} Normal 0-0.5 [facility] Comment on above: Performed By: #### C BC #### [address] Erythrocyte distribution wid th [Ratio] by Automated countOrdered By: Sarai Mendez on 01-29-2023 Erythrocyte distribution width (RBC) [Ratio] 13.8 % Normal 12.0-14.8 [facility] Comment on above: Performed By: #### C BC #### [address] Erythrocytes [#/volume] in B lood by Automated countOrdered By: Sarai Mendez on 01-29-2023 RBC (Bld) [#/Vol] 3.96 10*6/uL Normal 3.90-5.60 [facility] Comment on above: Performed By: #### C BC #### [address] Hematocrit [Volume Fraction] of Blood by Automated countOrdered By: Sarai Mendez on 01-29-2023 Hematocrit (Bld) [Volume fraction] 41.9 % Normal 38.8-50.0 [facility] Comment on above: Performed By: #### C BC #### [address] Hemoglobin [Mass/volume] in BloodOrdered By: Sarai Mendez on 01-29-2023 Hemoglobin (Bld) [Mass/Vol] 14.2 g/dL Normal 13.0-17.0 [facility] Comment on above: Performed By: #### C BC #### [address] Leukocytes [#/volume] correc collins for nucleated erythrocytes in Blood by Automated counOrdered By: Sarai Mendez on 01-29-2023 WBC corrected for nucl RBC Auto (Bld) [#/Vol] 11.9 10*3/uL 4.1-10.5 [facility] Leukocytes [#/volume] in Blo od by Automated countOrdered By: Sarai Mendez on 01-29-2023 WBC (Bld) [#/Vol] 11.9 10*3/uL High 4.1-10.5 [facility] Comment on above: Performed By: #### C BC #### [place] [address] [place] Lymphocytes [#/volume] in Bl ood by Automated countOrdered By: Sarai Mendez on 01-29-2023 Lymphocytes (Bld) [#/Vol] 1.3 10*3/uL Normal 1.00-4.8 [facility] Comment on above: Performed By: #### C BC #### [address] Lymphocytes/100 leukocytes i n Blood by Automated countOrdered By: Sarai Mendez on 01-29-2023 Lymphocytes/100 WBC (Bld) 10.5 % Normal . [facility] Comment on above: Performed By: #### C BC #### [address] MCH [Entitic mass] by Automa collins countOrdered By: Sarai Mendez on 01-29-2023 MCH (RBC) [Entitic mass] 35.8 pg High 27.5-35.2 [facility] Comment on above: Performed By: #### C BC #### [address] MCHC Auto (RBC) [Mass/Vol]Or dered By: Sarai Mendez on 01-29-2023 MCHC (RBC) [Mass/Vol] 33.8 g/dL 32.5-35.6 [facility] MCV [Entitic volume] by Auto mated countOrdered By: Sarai Mendez on 01-29-2023 MCV (RBC) [Entitic vol] 105.8 fL High 83.5-101 [facility] Comment on above: Performed By: #### C BC #### [place] [address] [place] Neutrophils [#/volume] in Bl ood by Automated countOrdered By: Sarai Mendez on 01-29-2023 Neutrophils (Bld) [#/Vol] 9.9 10*3/uL High 1.8-7.7 [facility] Comment on above: Performed By: #### C BC #### [address] Nucleated erythrocytes [Pres ence] in Blood by Automated countOrdered By: Sarai Mendez on 01-29-2023 Nucleated RBC Auto Ql (Bld) 0.1 /100{WBC} 0-0.5 [facility] Platelet mean volume [Entiti c volume] in Blood by Automated countOrdered By: Sarai Mendez on 01-29-2023 Platelet mean volume (Bld) [Entitic vol] 8.4 fL Normal 6.6-10.1 [facility] Comment on above: Performed By: #### C BC #### [address] Platelets [#/volume] in Bloo d by Automated countOrdered By: Sarai Mendez on 01-29-2023 Platelets (Bld) [#/Vol] 187 10*3/uL Normal 150-450 [facility] Comment on above: Performed By: #### C BC #### [address] Automated urine color determ inationOrdered By: Sarai Mendez on 01-26-2023 Color (U) Yellow Normal Yellow [facility] Comment on above: Order Comment: Name Collection Type:: Clean-Voided Midstream Performed By: #### U A #### [address] Basic Metabolic Panelon 01-08 GFR/1.73 sq M.predicted MDRD (S/P/Bld) [Vol rate/Area] mL/min/{1.73_m2} Normal [facility] Comment on above: Performed By: #### A 1C WTH eA, HGB, [id number], ALB #### [address] Bilirubin Test strip Ql (U)O rdered By: Sarai Mendez on 01-26-2023 Bilirubin Ql (U) Negative Negative [facility] Calcium [Mass/volume] in Ser um or PlasmaOrdered By: Sarai Mendez on 01-26-2023 Calcium [Mass/Vol] 9.3 mg/dL Normal 8.6-10.3 [facility] Comment on above: Result Comment: PERF ORMED BY: [place] [address] PATHOLOGIST CANDY COUNTER CLERK ALAYNA CAPONE M.D. Performed By: #### A 1C WTH eA, HGB, [id number], ALB #### [facility] [address] [place] [id number] [place] Carbon dioxide, total [Moles /volume] in Serum or PlasmaOrdered By: Sarai Mendez on 01-26-2023 CO2 [Moles/Vol] 28.7 mmol/L Normal 21.0-31.0 [facility] Comment on above: Performed By: #### A 1C WTH eA, HGB, [id number], ALB #### [facility] [address] [place] [id number] [place] Chloride [Moles/volume] in S ursula or PlasmaOrdered By: Sarai Mendez on 01-26-2023 Chloride [Moles/Vol] 101 mmol/L Normal 98-107 [facility] Comment on above: Performed By: #### A 1C WTH eA, HGB, [id number], ALB #### [facility] [address] [place] [id number] [place] Creatinine [Mass/volume] in Serum or PlasmaOrdered By: Sarai Mendez on 01-26-2023 Creatinine [Mass/Vol] 1.01 mg/dL Normal 0.70-1.30 [facility] Comment on above: Performed By: #### A 1C WTH eA, HGB, [id number], ALB #### [place] [id number] [place] Fructosamineon 01-26-2023 Fructosamine 192 umol/L Normal 0-285 [facility] Comment on above: Result Comment: Publ ished reference interval for apparently healthy subjects between age 20 and 60 is 205 - 285 umol/L and in a poorly controlled diabetic population is 228 - 563 umol/L with a mean of 396 umol/L. Performed at: - [facility] [id number] Capacity Analyst: Lucas Cooper PhD, Phone: [phone] PERFORMED BY: [place] [id number] PATHOLOGIST CANDY COUNTER CLERK ALAYNA CAPONE M.D. Performed By: #### A 1C [facility] eA, HGB, [id number], ALB #### [facility] [address] [place] [id number] [facility] Fructosamine [Moles/volume] in Serum or PlasmaOrdered By: Sarai Mendez on 01-26-2023 Fructosamine [Moles/Vol] 192 umol/L 0-285 [facility] Comment on above: Published reference interval for apparently healthysubjects between age 20 and 60 is 205 - 285 umol/L and in apoorly controlled diabetic population is 228 - 563 umol/Lwith a mean of 396 umol/L.Performed at: [employer] [id number] Director: Lucas Cooper PhD, Phone: [phone] Glucose [Mass/volume] in Ser um or PlasmaOrdered By: Sarai Mendez on 01-26-2023 Glucose [Mass/Vol] 126 mg/dL High 70-100 [facility] Comment on above: ADA recommended refe rence rangeRandom Glucose Reference Range is dependent on time and content of last meal. Glucose of more than 200 mg/dL in a nonstressed, ambulatory subject supports the diagnosis of Diabetes Mellitus. Result Comment: [place] om Glucose Reference Range is dependent on time and content of last meal. Glucose of more than 200 mg/dL in a nonstressed, ambulatory subject supports the diagnosis of Diabetes Mellitus. ADA recommended reference range Performed By: #### A 1C [facility] eA, HGB, [id number], ALB #### [facility] [address] [place] [address] [place] Ketones Auto test strip (U) [Mass/Vol]Ordered By: Sarai Mendez on 01-26-2023 Ketones (U) [Mass/Vol] Negative Negative [facility] Nitrite Test strip Ql (U)Ord ered By: Sarai Mendez on 01-26-2023 Nitrite Ql (U) Negative Negative [facility] No Panel InformationOrdered By: Sarai Mendez on 01-26-2023 Estimated GFR (CKD-EPI) > 60.0 mL/Min [facility] Creatinine Clearance (Chem N/A [facility] PST Type and Screenon 2022 ABO and Rh group Nom (Bld) Blood group A Rh(D) positive Normal [facility] Comment on above: Order Comment: Reaso n for Exam Primary osteoarthritis 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;Other meterman (current Result Comment: PERF ORMED BY: [place] [address] PATHOLOGIST CANDY COUNTER CLERK ALAYNA CAPONE M.D. Potassium [Moles/volume] in Serum or PlasmaOrdered By: Sarai Mendez on 01-26-2023 Potassium [Moles/Vol] 4.2 mmol/L Normal 3.5-5.1 [facility] Comment on above: Performed By: #### A 1C WT eA, HGB, [id number], ALB #### [address] Protein Auto test strip (U) [Mass/Vol]Ordered By: Sarai Mendez on 01-26-2023 Protein (U) [Mass/Vol] Negative Negative [facility] Serum or plasma anion gap de terminationOrdered By: Sarai Mendez on 01-26-2023 Anion gap [Moles/Vol] 10.5 mmol/L Normal 6.0-15.0 [facility] Comment on above: Performed By: #### A 1C WT eA, HGB, [id number], ALB #### [place] [address] [place] Sodium [Moles/volume] in Ser um or PlasmaOrdered By: Sarai Mendez on 01-26-2023 Sodium [Moles/Vol] 136 mmol/L Normal 136-145 [facility] Comment on above: Performed By: #### A 1C WTH eA, HGB, [id number], ALB #### [place] [address] [place] Specific gravity Auto test s trip (U) [Rel density]Ordered By: Sarai Mendez on 01-26-2023 Specific gravity (U) [Rel density] 1.019 1.001-1.03 0 [facility] Urea nitrogen [Mass/volume] in Serum or PlasmaOrdered By: Sarai Mendez on 01-26-2023 Urea nitrogen [Mass/Vol] 21 mg/dL Normal 10-31 [facility] Comment on above: Performed By: #### A 1C WTH eA, HGB, [id number], ALB #### [facility] [address] [place] [address] [place] Urinalysison 01-26-2023 Appearance (U) Clear Normal Clear [facility] Comment on above: Order Comment: Name Collection Type:: Clean-Voided Midstream Performed By: #### U A #### [place] [address] [place] Bilirubin,Urine Negative Normal Negative [facility] Comment on above: Order Comment: Name Collection Type:: Clean-Voided Midstream Performed By: #### U A #### [place] [address] [place] Glucose Ql (U) Normal Normal Normal [facility] Comment on above: Order Comment: Name Collection Type:: Clean-Voided Midstream Performed By: #### U A #### [address] Ketones Ql (U) Negative Normal Negative [facility] Comment on above: Order Comment: Name Collection Type:: Clean-Voided Midstream Performed By: #### U A #### [place] [address] [place] Leukocyte esterase Test strip Ql (U) Negative Normal Negative [facility] Comment on above: Order Comment: Name Collection Type:: Clean-Voided Midstream Performed By: #### U A #### [place] [address] [place] Nitrite,Urine Negative Normal Negative [facility] Comment on above: Order Comment: Name Collection Type:: Clean-Voided Midstream Performed By: #### U A #### [place] [address] [place] Occult Blood,Urine Negative Normal Negative [facility] Comment on above: Order Comment: Name Collection Type:: Clean-Voided Midstream Result Comment: PERF ORMED BY: [place] [address] PATHOLOGIST CANDY COUNTER CLERK ALAYNA CAPONE M.D. Performed By: #### U A #### [facility] [address] [place] [address] [place] Protein,Urine Negative Normal Negative [facility] Comment on above: Order Comment: Name Collection Type:: Clean-Voided Midstream Performed By: #### U A #### [facility] [address] [place] [address] Specificy [place],Urine 1.019 Normal 1.001-1.03 0 [facility] Comment on above: Order Comment: Name Collection Type:: Clean-Voided Midstream Performed By: #### U A #### [address] Urobilinogen,Urine Normal Normal Normal [facility] Comment on above: Order Comment: Name Collection Type:: Clean-Voided Midstream Performed By: #### U A #### [facility] [address] [place] [address] Urine clarity by refractomet ry automatedOrdered By: Sarai Mendez on 01-26-2023 Clarity Refractometry automated (U) Clear Clear [facility] Urine glucose measurement by automated test strip (mass/volume)Ordered By: Sarai Mendez on 01-26-2023 Glucose Auto test strip (U) [Mass/Vol] Normal mg/dL Normal [facility] Urine hemoglobin detection b y automated test stripOrdered By: Sarai Mendez on 01-26-2023 Hemoglobin Auto test strip Ql (U) Negative Negative [facility] Urine leukocyte esterase det ection by automated test stripOrdered By: Sarai Mendez on 01-26-2023 Leukocyte esterase Auto test strip Ql (U) Negative Negative [facility] Urine pH measurement by auto mated test stripOrdered By: Sarai Mendez on 01-26-2023 pH (U) 7.0 [pH] Normal 5.0-9.0 [facility] Comment on above: Order Comment: Name Collection Type:: Clean-Voided Midstream Performed By: #### U A #### [facility] [address] [address] Urobilinogen Auto test strip (U) [Mass/Vol]Ordered By: Sarai Mendez on 01-26-2023 Urobilinogen (U) [Mass/Vol] Normal mg/dL Normal [facility] CNPNon 01-10-2023 CNPN Telephone (RADHA) ----- ESME STEVEN ([id number]) 1960 M Date Time Provider Department 01/10/23 HELADIO PINEDA During your visit today, we recorded the following information about you: Heladio Pineda MD 01/10/2023 5:20 PM Signed Please Call patient if MyChart note not read to review results/released to My Chart if tests completed at F: Mildly Low vitamin D maybe associated with fatigue/joint/muscle pain. Start vitamin D 4000 International Units daily with food. Mildly Low vitamin b12- maybe associated with fatigue, may start over the counter vitamin [id number] daily by mouth or notify office if interested in nurse visits for monthly vitamin b12 injections. Stable rest of labs and no inflammation. Continue medrol 4mg 1tab daily. New script sent to pharmacy. Notify office if medication change is not tolerated. Recheck nonfasting labs in 1-2months (after surgery) and 3months, orders have been placed. Happy to further review and discuss at follow up visit. Continue rest of treatment plan per instructions at last office visit. Thank you. 01/05/23 high calcium 10.3, glucose 120, wbc 12.21;low vitamin D 29.6, vitamin b12-343;normal rest of cbc, cmp, esr 2, crp<0.3, uric acid 6.1;negative rf<10, ccp<15, CHENCHO, hepatitis panel, quantiferon tb; Nathen-Duncan, [place], [place] 01/11/2023 8:43 AM Signed Spoke to pt aware of results and recommendations. Allergies As of Date: 01/10/2023 (No Known Allergies) Date Reviewed: 01/05/2023 Reviewed by: Heladio Pineda MD - Fully Assessed Reason for Visit: Results [95] Primary Visit Diagnosis:PMR (polymyalgia rheumatica) (HCC) [M35.3] Other Visit Diagnoses:Elevated sed rate [R70.0] Elevated C-reactive protein (CRP) [R79.82] Vitamin D deficiency [E55.9] Vitamin B12 deficiency [E53.8] Order(s):SED RATE WESTERGREN [SQWSR] Order #: [id number] FUTURE C-REACTIVE PROTEIN (CRP) [SQCRP] Order #: [id number] FUTURE VITAMIN D 25 HYDROXY [SQVITD] Order #: [id number] FUTURE VITAMIN B12 BLOOD [SQB12] Order #: [id number] FUTURE Prescriptions as of 01/11/2023 - albuterol HFA (PROVENTIL HFA, VENTOLIN HFA) 90 mcg/actuation inhaler inhale 2 puffs by mouth every 6 hours - allopurinol (ZYLOPRIM) 100 mg tablet Take 1 tablet by mouth every afternoon. - aspirin, enteric coated (ASPIRIN, ENTERIC COATED) 81 mg EC tablet Take 81 mg by mouth. - escitalopram oxalate (LEXAPRO) 10 mg tablet Take 1 tablet by mouth every afternoon. - irbesartan (AVAPRO) 150 mg tablet - metoprolol succinate ER (TOPROL XL) 50 mg 24 hr tablet Take 1 tablet by mouth every afternoon. - triamterene-hydroCHLOROth iazide (DYAZIDE) 37.5-25 mg per capsule TAKE 1 CAPSULE BY MOUTH EVERY DAY IN THE MORNING FOR 30 DAYS - ALPRAZolam (XANAX) 0.5 mg tablet Take 0.5 mg by mouth daily at bedtime. - atorvastatin (LIPITOR) 80 mg tablet - levothyroxine (SYNTHROID) 150 mcg tablet Take 1 tablet by mouth every afternoon. - methylPREDNISolone (MEDROL) 4 mg TAKE 1 TABLET BY MOUTH WITH FOOD DAILY - meloxicam 7.5 mg tablet Take 1 tablet by mouth once daily. - clopidogrel (PLAVIX) 75 mg ORAL tablet Take one(1) tablet daily. - colchicine 0.6 mg ORAL tablet Take one(1) tablet daily. Problem List As Of Date 01/10/2023 Noted Resolved Swelling of Knee Joint [M25.469] 06/01/2009 Pseudogout [M11.20] 10/29/2013 CAD (coronary artery disease) [I25.10] 10/29/2013 OA (osteoarthritis) [M19.90] 10/29/2013 Hyperlipidemia [E78.5] 10/29/2013 Hypothyroidism [E03.9] 10/29/2013 Pain in right hip [M25.551] 01/05/2023 Rotator cuff arthropathy of left shoulder [M12.*01/05/2023 Bilateral hand pain [M79.641, M79.642] 01/05/2023 Secondary osteoarthritis of multiple sites [M15*01/05/2023 Pseudogout involving multiple joints [M11.89] 01/05/2023 PMR (polymyalgia rheumatica) (HCC) [M35.3] 01/05/2023 Idiopathic chronic gout of multiple sites 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 [Z79*01/05/2023 CHENCHO positive [R76.8] 01/05/2023 Bilateral hand swelling [M79.89] 01/05/2023 Encounter Status:Closed by RUBEN MONTERROSO on 01/11/23 Normal [facility] C-REACTIVE PROTEIN (CRP)on 0 01-06-2023 CRP [Mass/Vol] <0.9 mg/dL [facility] CK CREATINE KINASEon 023 CK [Catalytic activity/Vol] 35 U/L Low 51 - 298 U/L [facility] Comprehensive metabolic 2000 panelon 01-06-2023 Albumin [Mass/Vol] 4.9 g/dL 3.9 - 4.9 g/dL [facility] ALP [Catalytic activity/Vol] 57 U/L 38 - 113 U/L [facility] ALT [Catalytic activity/Vol] 27 U/L 10 - 54 U/L [facility] Anion gap [Moles/Vol] 15 mmol/L 9 - 18 mmol/L [facility] AST [Catalytic activity/Vol] 16 U/L 14 - 40 U/L [facility] Bilirubin [Mass/Vol] 0.7 mg/dL 0.2 - 1 .3 mg/dL [facility] Calcium [Mass/Vol] 10.3 mg/dL High 8.5 - 10. 2 mg/dL [facility] Chloride [Moles/Vol] 98 mmol/L 97 - 10 5 mmol/L [facility] CO2 [Moles/Vol] 24 mmol/L 22 - 30 mmol/L [facility] Creatinine [Mass/Vol] 0.98 mg/dL 0.73 - 1.22 mg/dL [facility] Estimated Glomerular Filtration Rate 87 mL/min/1.73m >=60 mL/min/1.7 3m [facility] Glucose [Mass/Vol] 120 mg/dL High 74 - 99 mg/dL [facility] Potassium [Moles/Vol] 4.3 mmol/L 3.7 - 5.1 mmol/L [facility] Protein [Mass/Vol] 7.1 g/dL 6.3 - 8.0 g/dL [facility] Sodium [Moles/Vol] 137 mmol/L 136 - 144 mmol/L [facility] Urea nitrogen [Mass/Vol] 20 mg/dL 9 - 24 mg/dL [facility] RHEUMATOID FACTOR BLon 01-06 Rheumatoid factor Qn <16 IU/mL [facility] URIC ACID BLOODon 01-06-2023 Urate [Mass/Vol] 6.1 mg/dL 4.0 - 8.1 mg/dL [facility] VITAMIN B12 BLOODon 01-07-20 Cobalamin (Vitamin B12) [Mass/Vol] 343 pg/mL 232 - 1,245 pg/mL [facility] 25(OH)D3 SerPl-mCncon 2022 25-hydroxyvitamin D3 [Mass/Vol] 29.6 ng/mL Low 31.0-80.0 [facility] Comment on above: Order Comment: Speci men Type: BLOOD SPECIMENOrdering Facility: [facility] Address: [address] [place] [phone] Result Comment: Clas sification of 25 [place] Vitamin D status: Deficiency/Insufficiency: < or = 30 ng/ml. Sufficiency/Optimal Levels: 31-80 ng/mL Toxicity: > 100 ng/mL. Test performed by chemiluminescent immunoassay. Performed By: #### 1 989-3 ####[facility] LABCLIA [id number] [place] [address] [place] CHENCHO BY IFA WITH REFLEXon Nuclear Ab Ql (S) Negative Normal Negative [facility] Comment on above: Order Comment: Speci men Type: BLOOD SPECIMENOrdering Facility: [facility] Address: [address] [place] [address] Result Comment: Anti -nuclear antibody test is used as an aid in diagnosis of systemic autoimmune diseases. Where positive and clinically warranted, follow-up using disease-specific testing is recommended. Low positive titers are not uncommon with advanced age, certain chronic infections, and malignancies among others. Test methodology: Indirect fluorescence immunoassay (IFA) using HEp-2 cells. Performed By: #### A NAIFR ####[facility] LABCLIA [id number] [address] Aldolase SerPl-cCncon 2022 Aldolase [Catalytic activity/Vol] 6.1 mU/mL Normal 1.5-8.1 [facility] Comment on above: Order Comment: Speci nicole Type: BLOOD SPECIMENOrdering Facility: [facility] Address: [address] [place] [address] Result Comment: This test was developed and its performance characteristics determined by [facility]'s Sarai [facility] [place] ([facility]). It has not been cleared or approved by the FDA. [facility] is regulated under CLIA as qualified to perform high-complexity testing. This test is used for clinical purposes. It should not be regarded as investigational or for research. Performed By: #### 1 761-6 ####[facility] LABCLIA [id number] [address] [place] BLOOD TB SCREENon 01-05-2023 M. tuberculosis tuberculin stim IFN-g Ql (Bld) Negative Normal [facility] Comment on above: Order Comment: Speci men Type: BLOOD SPECIMENOrdering Facility: [facility] Address: [address] [address] Performed By: #### I NFTBP ####[facility] [id number] [address] OF [facility] MITOGEN MINUS NIL >9.97 Normal >=0.50 [facility] Comment on above: Order Comment: Speci men Type: BLOOD SPECIMENOrdering Facility: [facility] Address: [address] [place] [address] Performed By: #### I NFTBP ####[facility] [id number] [address] TB GAMMA INTERPRETATION Infection with M. tuberculosis complex is unlikely. If latent tuberculosis infection is highly suspected, a negative result does not rule out the infection. Specimens from immunocompromised patients and those <5 years of age may show false negative results. In case of a contact investigation, please repeat 8-12 weeks after a known exposure. Normal [facility] Comment on above: Order Comment: Speci men Type: BLOOD SPECIMENOrdering Facility: [facility] Address: [address] [place] [address] Performed By: #### I NFTBP ####[facility] [id number] [address] TB NIL 0.03 IU/mL Normal <=8.00 [facility] Comment on above: Order Comment: Speci men Type: BLOOD SPECIMENOrdering Facility: [facility] Address: [address] [place], [place] [address] Performed By: #### I NFTBP ####[facility] [id number] [address] TB1 AG MINUS NIL 0.01 IU/mL Normal <0.35 [facility] Comment on above: Order Comment: Speci men Type: BLOOD SPECIMENOrdering Facility: [facility] Address: [address] [place] [address] Performed By: #### I NFTBP ####[facility] LABCLIA [id number] [address] OF [facility] TB2 AG MINUS NIL 0.04 IU/mL Normal <0.35 [facility] Comment on above: Order Comment: Speci men Type: BLOOD SPECIMENOrdering Facility: [facility] Address: [address] [address] Performed By: #### I NFTBP ####[facility] LABCLIA [id number] [address] CBC panel Auto (Bld)on 01-05 Erythrocyte distribution width (RBC) [Ratio] 12.9 % 11.5 - 15.0 % [facility] Hematocrit (Bld) [Volume fraction] 48.7 % 39.0 - 51.0 % [facility] Hemoglobin (Bld) [Mass/Vol] 16.3 g/dL 13.0 - 17.0 g/dL [facility] MCH (RBC) [Entitic mass] 35.6 pg High 26.0 - 34.0 pg [facility] MCHC (RBC) [Mass/Vol] 33.5 g/dL 30.5 - 36.0 g/dL [facility] MCV (RBC) [Entitic vol] 106.3 fL High 80.0 - 100.0 fL [facility] Nucleated RBC (Bld) [#/Vol] <0.01 k/uL [facility] Platelet mean volume (Bld) [Entitic vol] 10.7 fL 9.0 - 12.7 fL [facility] Platelets (Bld) [#/Vol] 207 10*3/uL 150 - 400 k/uL [facility] RBC (Bld) [#/Vol] 4.58 10*6/uL 4.20 - 6.00 m/uL [facility] WBC (Bld) [#/Vol] 12.21 10*3/uL High 3.70 - 11.00 k/uL [facility] Erythrocyte distribution width (RBC) [Ratio] 12.9 % Normal 11.5-15.0 [facility] Comment on above: Order Comment: Speci men Type: BLOOD SPECIMENOrdering Facility: [facility] Address: [address] [place], [place] [address] Performed By: #### 5 8410-2, 4537-7 ####[facility] LABCLIA [id number] [place] [address] [place] Hematocrit (Bld) [Volume fraction] 48.7 % Normal 39.0-51.0 [facility] Comment on above: Order Comment: Speci men Type: BLOOD SPECIMENOrdering Facility: [facility] Address: [address] [place] [address] Performed By: #### 5 8410-2, 4537-7 ####[facility] LABIA [id number] [place] [address] [place] Hemoglobin (Bld) [Mass/Vol] 16.3 g/dL Normal 13.0-17.0 [facility] Comment on above: Order Comment: Speci men Type: BLOOD SPECIMENOrdering Facility: [facility] Address: [address] [place] [address] Performed By: #### 5 8410-2, 453-7 ####[facility] LABIA [id number] [place] [address] [place] MCH (RBC) [Entitic mass] 35.6 pg High 26.0-34.0 [facility] Comment on above: Order Comment: Speci men Type: BLOOD SPECIMENOrdering Facility: [facility] Address: [address] [place], [place] [address] Performed By: #### 5 8410-2, 4537-7 ####[facility] LABIA [id number] [place] [address] [place] MCHC (RBC) [Mass/Vol] 33.5 g/dL Normal 30.5-36.0 [facility] Comment on above: Order Comment: Speci men Type: BLOOD SPECIMENOrdering Facility: [facility] Address: [address] [place], [place] [address] Performed By: #### 5 8410-2, 4536-7 ####[facility] [id number] [place] [address] [place] MCV (RBC) [Entitic vol] 106.3 fL High 80.0-100.0 [facility] Comment on above: Order Comment: Speci men Type: BLOOD SPECIMENOrdering Facility: [facility] Address: [address] [place], [place] [address] Performed By: #### 5 8410-2, 7 ####[facility] [id number] [place] [address] [place] Nucleated RBC (Bld) [#/Vol] 10*3/uL Normal <0.01 [facility] Comment on above: Order Comment: Speci men Type: BLOOD SPECIMENOrdering Facility: [facility] Address: [address] [place], [place] [address] Performed By: #### 5 8410-2, 7 ####[facility] [id number] [place] [address] [place] Platelet mean volume (Bld) [Entitic vol] 10.7 fL Normal 9.0-12.7 [facility] Comment on above: Order Comment: Speci men Type: BLOOD SPECIMENOrdering Facility: [facility] Address: [address] [place] [address] Performed By: #### 5 8410-2, 7 ####[facility] [id number] [place] [address] [place] Platelets (Bld) [#/Vol] 207 10*3/uL Normal 150-400 [facility] Comment on above: Order Comment: Speci men Type: BLOOD SPECIMENOrdering Facility: [facility] Address: [address] [place], [place] [address] Performed By: #### 5 8410-2, 4536-7 ####[facility] LABCLIA [id number] [place] [address] [place] RBC (Bld) [#/Vol] 4.58 10*6/uL Normal 4.20-6.00 [facility] Comment on above: Order Comment: Speci men Type: BLOOD SPECIMENOrdering Facility: [facility] Address: [address] [place] [address] Performed By: #### 5 8410-2, 4537-7 ####[facility] LABIA [id number] [place] [address] [place] WBC (Bld) [#/Vol] 12.21 10*3/uL High 3.70-11.00 [facility] Comment on above: Order Comment: Speci men Type: BLOOD SPECIMENOrdering Facility: [facility] Address: [address] [place] [address] Performed By: #### 5 8410-2, 4537-7 ####[facility] LABIA [id number] [place] [address] [facility] [place] CK SerPl-cCncon 01-05-2023 CK [Catalytic activity/Vol] 35 U/L Low 51-298 [facility] Comment on above: Order Comment: Speci men Type: BLOOD SPECIMENOrdering Facility: [facility] Address: [address] [place] [address] Performed By: #### 2 157-6, 22894-9, 1987-, 2131-12 ####[facility] LABIA [id number] [address] [place] CNOVon 01-05-2023 CNOV Office Visit (RADHA ) ----- ESME STEVEN ([id number]) 1960 M Date Time Provider Department 01/05/23 11:00 AM HELADIO PINEDA During your visit today, we recorded the following information about you: Pulse Blood pressure Weight Height 71/minute 143/74 107.5 kg 1.791 m Heladio Pineda MD 01/05/2023 4:37 PM Signed NEW CONSULT:RHEUMATOLOGY SERVICE SERVICE DATE: 01/05/2023 SERVICE TIME: 11:31 AM REASON FOR CONSULT: joint pain 2nd opinion REQUESTING PHYSICIAN: Dr.Benjamin Inocente DO PRIMARY CARE PHYSICIAN: Coleman Brower DO Patient's Name: Esme Steven [address] [place] [address] Accompanied by: self This consult was requested for my medical opinion regarding the rheumatologic evaluation of the patient's joint pain problems, and my final recommendations will be communicated to the requesting health care provider by way of the shared medical record for internal providers or letter via the [employer] for external providers. January 05, 2023 SUBJECTIVE Mr. Steven is a 62 year old male who presents for joint pain eval. 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 Treated with colchicine x 3years, more pain when off, then restarted 05/2013 S/p b/l TKR ~2012 bone on bone S/p L THR summer weakness arms, legs, sore and painful after golfing or walking, unable to lift gallon water Diagnosed with PMR summer 2022 Better with steroids last dose medrol yesterday More agitated with prednisone, severe headache Celexa 10mg daily summer 2022 Last 10/2022 steroid injection R hip with 1month relief Summer 2022 Fell off cart left shoulder rotator cuff tear, better with steroid injection 2-3weeks ago Mild relief with ultram Tried nabumetone and mobic in the past Taking celebrex x 10years, ok per cardiology Due right THR 02/13/23 No falls/fx/trauma/illness/o ral sores/rash/hairloss/jaw pain/dysphagia/epistaxis/ hemoptysis. No adverse effects with meds. No other complaints. Patient denies fever, chills, cp, dyspnea, nausea, vomiting, night sweats, scalp tenderness, visual changes, delgadillo, bowel/bladder changes, weight changes or other complaints. COMPLETE REVIEW OF SYSTEMS: RHEUM. ROS: Joint pain: yes L>R shoulder, L>R UEs, LEs, R hip Joint swelling:MCPs for years, L knee Am stiffness: yes all day Low back pain: no Dactylitis: no H/o precedent/frequent infection(s): no Enthesopathy/Ruth's/he el/plantar tenderness: no Skin thickening, psoriasis, photosensitivity, purpura: no Nail changes: no Alpecia, patchy: no Eye inflammation: glasses SICCA: no Oral/nasal/genital ulcers: no GI problems-diarrhea/bleedin g/IBD/Gluten intolerence/Dysphagia: occasionally gerd Raynaud's phenomenon/digital ulcers: no Organ inv-Serositis: no Lung disease/ILD: no Myopathy/proximal muscle weakness: no Abnormal Urine or urethritis: no Renal/liver disease: as above FRONT EDGER/PNS/sz/cva/cancer disease: no HEME-Cytopenias/LAD/Clots : no Fevers: no Fatigue: yes, sleeps 7-9 hrs/night, up at night to urinate PMR/GCA ROS: yes, see above Patient denies history of Psoriasis, Rheumatic Fever, PUD, Liver Disease, Hepatitis , Kidney Disease, Kidney Stones, DM, HTN, CAD, Dyslipidemia, PAD, Sinusitis, Asthma, TB infection or exposure, Pneumonias, Anemia, Seizures, Stroke, MS, Clots, Cancer, Transfusions, Tattoos , and Alcohol dependency. Other ROS:The remainder of the review of systems is negative. All other reviewed and negative other than HPI. 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 Normal [facility] CRP SerPl-ncon 01-05-2023 CRP [Mass/Vol] mg/L Normal <0.9 [facility] Comment on above: Order Comment: Speci nicole Type: BLOOD SPECIMENOrdering Facility: [facility] Address: [address] [place] [address] Performed By: #### 2 157-6, 80692-7, 2131-12 ####[facility] LABCLIA [id number] [place] [address] [place] [facility] [place] Comprehensive metabolic 2000 panelon 01-05-2023 Albumin [Mass/Vol] 4.9 g/dL Normal 3.9-4.9 [facility] Comment on above: Order Comment: Mil river[place] Type: BLOOD SPECIMENOrdering Facility: [facility] Address: [address] [place] [address] Performed By: #### 2 157-6, 80246-4, 2131-12 ####[facility] LABCLIA [id number] [place] [address] [place] ALP [Catalytic activity/Vol] 57 U/L Normal 38-113 [facility] Comment on above: Order Comment: Speci men Type: BLOOD SPECIMENOrdering Facility: [facility] Address: [address] [place] [address] Performed By: #### 2 157-6, , 2131-12 ####[facility] LABCLIA [id number] [place] [address] [place] ALT [Catalytic activity/Vol] 27 U/L Normal 10-54 [facility] Comment on above: Order Comment: Speci men Type: BLOOD SPECIMENOrdering Facility: [facility] Address: [address] [place] [address] Performed By: #### 2 157-6, , 2131-12 ####[facility] LABCLIA [id number] [place] [address] [place] Anion gap [Moles/Vol] 15 mmol/L Normal 9-18 [facility] Comment on above: Order Comment: Speci men Type: BLOOD SPECIMENOrdering Facility: [facility] Address: [address] [place] [address] Performed By: #### 2 157-6, , 2131-12 ####[facility] LABCLIA [id number] [place] [address] [place] AST [Catalytic activity/Vol] 16 U/L Normal 14-40 [facility] Comment on above: Order Comment: Speci men Type: BLOOD SPECIMENOrdering Facility: [facility] Address: [address] [place], [place] [address] Performed By: #### 2 157-6, , 2131-12 ####[facility] LABCLIA [id number] [place] [id number] [place] Bilirubin [Mass/Vol] 0.7 mg/dL Normal 0.2-1.3 [facility] Comment on above: Order Comment: Speci men Type: BLOOD SPECIMENOrdering Facility: [facility] Address: [address] [place] [address] Performed By: #### 2 157-6, , 2131-12 ####[facility] LABCLIA [id number] [place] [address] [place] Calcium [Mass/Vol] 10.3 mg/dL High 8.5-10.2 [facility] Comment on above: Order Comment: Speci men Type: BLOOD SPECIMENOrdering Facility: [facility] Address: [address] [place] [address] Performed By: #### 2 157-6, , 2131-12 ####[facility] LABCLIA [id number] [place] [address] [place] Chloride [Moles/Vol] 98 mmol/L Normal 97-105 [facility] Comment on above: Order Comment: Speci men Type: BLOOD SPECIMENOrdering Facility: [facility] Address: [address] [place], [place] [address] Performed By: #### 2 157-6, , 2131-12 ####[facility] LABCLIA [id number] [place] [id number] [place] CO2 [Moles/Vol] 24 mmol/L Normal 22-30 [facility] Comment on above: Order Comment: Speci men Type: BLOOD SPECIMENOrdering Facility: [facility] Address: [address] [place] [address] Performed By: #### 2 157-6, , 2131-12 ####[facility] LABCLIA [id number] [address] [address] [place] Creatinine [Mass/Vol] 0.98 mg/dL Normal 0.73-1.22 [facility] Comment on above: Order Comment: Mil rivera Type: BLOOD SPECIMENOrdering Facility: [facility] Address: [address] [place] [address] Performed By: #### 2 157-6, 52883-3, 2131-12 ####[facility] LABCLIA [id number] [place] [id number] [facility] Creatinine and Glomerular filtration rate.predicted panel (S/P/Bld) 87 mL/min/1.73m??? Normal >=60 [facility] Comment on above: Order Comment: Mil nicole Type: BLOOD SPECIMENOrdering Facility: [facility] Address: [address] [place] [phone] Result Comment: Renee mated Glomerular Filtration Rate (eGFR) is calculated using the 2020 CKD-EPI creatinine equation. This equation utilizes serum creatinine, sex, and age as parameters. The creatinine assay has traceable calibration to isotope dilution-mass spectrometry. Refer to KDIGO guidelines for clinical interpretation. In patients with unstable renal function, e.g. those with acute kidney injury, the eGFR may not accurately reflect actual GFR. Performed By: #### 2 157-6, , 2131-12 ####[facility] LABCLIA [id number] [place] [id number] [place] Glucose [Mass/Vol] 120 mg/dL High 74-99 [facility] Comment on above: Order Comment: Mil rivera Type: BLOOD SPECIMENOrdering Facility: [facility] Address: [address] [place] [phone] Result Comment: The [place] Diabetes Association (ADA) provides guidance for cutoff values for fasting glucose and random glucose. The ADA defines fasting as no caloric intake for at least 8 hours. Fasting plasma glucose results between 100 to 125 mg/dL indicate increased risk for diabetes (prediabetes). Fasting plasma glucose results greater than or equal to 126 mg/dL meet the criteria for diagnosis of diabetes. In the absence of unequivocal hyperglycemia, results should be confirmed by repeat testing. In a patient with classic symptoms of hyperglycemia or hyperglycemic crisis, random plasma glucose results greater than or equal to 200 mg/dL meet the criteria for diagnosis of diabetes. Reference: Standards of Medical Care in Diabetes 2016, [place] [employer] Association. Diabetes Care. 2016.39(Suppl 1). Performed By: #### 2 157-6, , 2131-12 ####[facility] LABCLIA [id number] [address] [address] [place] Potassium [Moles/Vol] 4.3 mmol/L Normal 3.7-5.1 [facility] Comment on above: Order Comment: Speci men Type: BLOOD SPECIMENOrdering Facility: [facility] Address: [address] [place] [address] Performed By: #### 2 157-6, , 2131-12 ####[facility] LABIA [id number] [place] [address] [place] Protein [Mass/Vol] 7.1 g/dL Normal 6.3-8.0 [facility] Comment on above: Order Comment: Speci men Type: BLOOD SPECIMENOrdering Facility: [facility] Address: [address] [place] [address] Performed By: #### 2 157-6, , 2131-12 ####[facility] LABIA [id number] [place] [address] [place] Sodium [Moles/Vol] 137 mmol/L Normal 136-144 [facility] Comment on above: Order Comment: Speci men Type: BLOOD SPECIMENOrdering Facility: [facility] Address: [address] [place] [phone] Performed By: #### 2 157-6, , 2131-12 ####[facility] LABIA [id number] [address] [place] Urea nitrogen [Mass/Vol] 20 mg/dL Normal 9-24 [facility] Comment on above: Order Comment: Speci men Type: BLOOD SPECIMENOrdering Facility: [facility] Address: [address] [place] [address] Performed By: #### 2 157-6, 62241-2, 1988-5, 2132-9 ####[facility] LABCLIA [id number] [address] STATES OF [facility] Cyclic citrullinated peptide IgG Qnon 01-05-2023 CCP ANTIBODY IGG QUALITATIVE Negative Normal Negative [facility] Comment on above: Order Comment: Speci men Type: BLOOD SPECIMENOrdering Facility: [facility] Address: [address] [place] [address] Performed By: #### 3 3935-8 ####[facility] LABIA [id number] [place] [address] [place] ESR Westergren method (Bld) [Velocity]on 01-05-2023 ESR (Bld) [Velocity] 2 mm/h 0 - 15 mm/hr [facility] ESR (Bld) [Velocity] 2 mm/h Normal 0-15 [facility] Comment on above: Order Comment: Speci men Type: BLOOD SPECIMENOrdering Facility: [facility] Address: [address] [place] [address] Performed By: #### 5 8410-2, 4537-7 ####[facility] LABIA [id number] [place] [address] [place] HBV core Ab Ser Qlon 023 HBV core Ab Ql (S) Negative Normal Negative [facility] Comment on above: Order Comment: Speci men Type: BLOOD SPECIMENOrdering Facility: [facility] Address: [address] [place] [address] Result Comment: No e vidence of current or past infection with Hepatitis B virus. Should recent infection be suspected, repeat testing may be considered 3-4 weeks after this draw. Performed By: #### 5 195-3, 02233-8, 34121-9 ####[facility] LABCLIA [id number] [address] HBV surface Ab Ql (S)on 12-09 HBV surface Ab Qn (S) <8.[address] [facility] Comment on above: Order Comment: Speci men Type: BLOOD SPECIMENOrdering Facility: [facility] Address: [address] [place] [address] Result Comment: <8 m IU/mL: No serological evidence of immunity to Hepatitis B Virus. >/= 8 to <12 mIU/mL: No serological evidence of immunity to Hepatitis B Virus. >/= 12 mIU/mL: Consistent with serological evidence of immunity to Hepatitis B Virus. Performed By: #### 5 195-3, 30991-0, 95544-2 ####[facility] LABCLIA [id number] [address] HBV surface Ab Ser Qlon 12-09 HBV surface Ab Ql (S) Negative Normal [facility] Comment on above: Order Comment: Speci men Type: BLOOD SPECIMENOrdering Facility: [facility] Address: [address] [place] [address] Result Comment: No s erological evidence of immunity to Hepatitis B Virus. Performed By: #### 5 195-3, 50521-2, 80134-7 ####[facility] LABCLIA [id number] [address] HBV surface Ag Ser Qlon 12-09 HBV surface Ag Ql (S) Negative Normal Negative [facility] Comment on above: Order Comment: Speci men Type: BLOOD SPECIMENOrdering Facility: [facility] Address: [address] [place] [address] Performed By: #### 5 195-3, 68713-3, 38139-5 ####[facility] LABCLIA [id number] [address] OF [place] HCV Ab Ser Qlon 01-05-2023 HCV Ab Ql (S) Negative Normal Negative [facility] Comment on above: Order Comment: Speci men Type: BLOOD SPECIMENOrdering Facility: [facility] Address: [address] [place] [address] Result Comment: The result suggests no evidence of active infection with Hepatitis C virus. Should recent infection be suspected, repeat testing may be considered 4-6 weeks after this draw. Performed By: #### 1 6128-1 ####[facility] LABIA [id number] [place] [address] [place] Rheumatoid fact SerPl-aCncon 01-05-2023 Rheumatoid factor Qn [IU]/mL Normal <16 [facility] Comment on above: Order Comment: Speci men Type: BLOOD SPECIMENOrdering Facility: [facility] Address: [address] [place] [address] Performed By: #### 3 084-1, 99831-5 ####[facility] LABIA [id number] [place] [address] [place] Urate SerPl-[facility] 3 Urate [Mass/Vol] 6.1 mg/dL Normal 4.0-8.1 [facility] Comment on above: Order Comment: Speci men Type: BLOOD SPECIMENOrdering Facility: [facility] Address: [address] [place], [place] [address] Performed By: #### 3 084-1, 35509-4 ####[facility] [id number] [place] [address] [place] Vit B12 SerPl-mCncon 023 Cobalamin (Vitamin B12) [Mass/Vol] 343 pg/mL Normal 232-1245 [facility] Comment on above: Order Comment: Speci men Type: BLOOD SPECIMENOrdering Facility: [facility] Address: [address] [place], [place] [address] Performed By: #### 2 157-6, 69420-0, 1987-5, 2-9 ####[facility] LABCLIA [id number] [place] [address] [place] cCP IgG SerPl-aCncon 023 Cyclic citrullinated peptide IgG Qn <15 Normal <20 [facility] Comment on above: Order Comment: Speci men Type: BLOOD SPECIMENOrdering Facility: [facility] Address: [address] [place] [address] Performed By: #### 3 3935-8 ####[facility] LABCLIA [id number] [place] [address] [place] A1C with Estimated Average G luon 11-13-2022 Glucose [Mass/Vol] 114 mg/dL Normal [facility] Comment on above: Order Comment: Reaso n for Exam Primary osteoarthritis 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;Other detention (current Result Comment: PERF ORMED BY: [place] [address] PATHOLOGIST CANDY COUNTER CLERK ALAYNA CAPONE M.D. Performed By: #### A 1C WT eA, HGB, [id number], ALB #### [facility] [address] [place] [phone] [place] Albumin Levelon 11-13-2022 Albumin [Mass/Vol] 4.3 g/dL Normal 3.5-5.7 [facility] Comment on above: Order Comment: Reaso n for Exam Primary osteoarthritis 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;Other detention (current Performed By: #### A 1C WTH eA, HGB, [id number], ALB #### [facility] [address] [place] [phone] [place] Albumin [Mass/volume] in Ser um or Plasma by Bromocresol green (BCG) dye binding methoOrdered By: Sarai Mendez on 11-13-2022 Albumin BCG dye [Mass/Vol] 4.3 g/dL 3.5-5.7 [facility] Glucose mean value [Mass/vol ume] in Blood Estimated from glycated hemoglobinOrdered By: Sarai Mendez on 11-13-2022 Average glucose Estimated from glycated hemoglobin (Bld) [Mass/Vol] 114 mg/dL [facility] Hemoglobin A1c percentageOrd ered By: Sarai Mendez on 11-13-2022 HbA1c (Bld) [Mass fraction] 5.6 % Normal 4.3-5.6 [facility] Comment on above: Increased risk for d iabetes: 5.7 - 6.4diabetes: >6.4glycemic control for adults with diabetes: <7.0 Order Comment: Reaso n for Exam Primary osteoarthritis 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;Other detention (current Result Comment: Incr eased risk for diabetes: 5.7 - 6.4 diabetes: >6.4 glycemic control for adults with diabetes: <7.0 Performed By: #### A 1C WTH eA, HGB, [id number], ALB #### [facility] [address] Hemoglobin [Mass/volume] in BloodOrdered By: Sarai Mendez on 11-13-2022 Hemoglobin (Bld) [Mass/Vol] 14.7 g/dL Normal 13.0-17.0 [facility] Comment on above: Order Comment: Reaso n for Exam Primary osteoarthritis 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;Other detention (current Result Comment: PERF ORMED BY: [place] [address] PATHOLOGIST CANDY COUNTER CLERK ALAYNA CAPONE M.D. Performed By: #### A 1C WTH eA, HGB, [id number], ALB #### [facility] [address] [place] [phone] [facility] Vitamin D 25 Hydroxy Totalon 11-13-2022 Vitamin D 25 Hydroxy Total 13.3 ng/mL Low 30-100 [facility] Comment on above: Order Comment: Reaso n for Exam Primary osteoarthritis 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;Other meterman (current Result Comment: FORTINO MIN D STATUS 25(OH)VITAMIN D RANGE (ng/mL) Deficient <20 Insufficient 20 to <30 Sufficient 30 to 100 Reference: Ras MF,Tanika NC, Sergio DELGADILLO, et al. Evaluation,treatment, and prevention of vitamin D deficiency; an Endocrine Society clinical practice guideline. JCEM. 2010; 96(7):191-. PERFORMED BY: [place] [address] PATHOLOGIST CANDY COUNTER CLERK ALAYNA CAPONE M.D. Performed By: #### A 1C WTH eA, HGB, [id number], ALB #### [address] Vitamin D+Metabolites [Mass/ volume] in Serum or PlasmaOrdered By: Sarai Mendez on 11-13-2022 Vitamin D+Metabolites [Mass/Vol] 13.3 ng/mL 30-100 [facility] Comment on above: VITAMIN D STATUS 25( [place])VITAMIN D RANGE (ng/mL) Deficient <20 Insufficient 20 to <30Sufficient 30 to 100Reference: Ras MF,Tanika NC, Sergio DELGADILLO, et al. Evaluation,treatment, and prevention of vitamin D deficiency; an Endocrine Society clinical practice guideline. JCEM. 2010; 96(7):1911-30. XR hip RT min 2V(w/wo pelvis )*on 10-26-2022 XR hip RT min 2V(w/wo pelvis)* [facility] [place] [address] [place] [address] XRay Report Signed Patient: Esme Steven MR#: [id number] : 1960 Acct:[id number] Age/Sex: 61 / M ADM Date: 10/26/22 Loc: [facility] Room: Type: [facility] Attending Dr: Sarai Mendez II, MD Copies to: Sarai Mendez MD Ordering Provider: Sarai Mendez MD Date of Service: 10/26/22 XR/XR hip RT min 2V(w/wo pelvis)*: Right hip pain RIGHT HIP - 2 views: CLINICAL HISTORY: Right hip pain. COMPARISON: None FINDINGS: Moderate degenerative changes of the right hip without acute bony process. Left hip prosthesis without radiographic complication. XR/XR hip RT min 2V(w/wo pelvis)* IMPRESSION: MODERATE DEGENERATIVE CHANGES OF THE RIGHT HIP WITHOUT ACUTE BONY PROCESS.. Impression dictated by: Alex Castro Jr., D.O.10/26/2022 2:59 PM Dictation Location: [place] [address] Transcribed By: [facility] 10/26/22 1459 Dictated By: Alex Castro Jr, DO 10/26/22 1422 Signed By: 10/26/22 1459 Normal [facility] Activated partial thrombopla stin time (aPTT) in platelet poor plasma by coagulation aOrdered By: Damien Holbrook on 10-11-2022 aPTT Coag (PPP) [Time] 24.5 s 25.1-36.5 [facility] Alanine aminotransferase [En zymatic activity/volume] in Serum or PlasmaOrdered By: Damien Holbrook on 10-11-2022 ALT [Catalytic activity/Vol] 37 U/L Normal 7-52 [facility] Comment on above: Performed By: #### A 1C WTH eA, HGB, [id number], ALB #### [facility] [address] [place] [address] [place] Albumin [Mass/volume] in Ser um or Plasma by Bromocresol green (BCG) dye binding methoOrdered By: Damien Holbrook on 10-11-2022 Albumin BCG dye [Mass/Vol] 4.3 g/dL 3.5-5.7 [facility] Alkaline phosphatase [Enzyma tic activity/volume] in Serum or PlasmaOrdered By: Damien Holbrook on 10-11-2022 ALP [Catalytic activity/Vol] 51 U/L Normal 34-104 [facility] Comment on above: Performed By: #### A 1C WTH eA, HGB, [id number], ALB #### [facility] [address] [place] [address] [place] Aspartate aminotransferase [ Enzymatic activity/volume] in Serum or PlasmaOrdered By: Damien Holbrook on 10-11-2022 AST [Catalytic activity/Vol] 26 U/L Normal 13-39 [facility] Comment on above: Performed By: #### A 1C WTH eA, HGB, [id number], ALB #### [facility] [address] [place] [phone] [place] Automated basophil %Ordered By: Damien Holbrook on 10-11-2022 Basophils/100 WBC (Bld) 1.1 % Normal . [facility] Comment on above: Performed By: #### A 1C WTH eA, HGB, [id number], ALB #### [address] Automated basophil countOrde red By: Damien Holbrook on 10-11-2022 Basophils (Bld) [#/Vol] 0.1 10*3/uL Normal 0.0-0.2 [facility] Comment on above: Result Comment: PERF ORMED BY: [place] [address] PATHOLOGIST CANDY COUNTER CLERK ALAYNA CAPONE M.D. Performed By: #### A 1C WTH eA, HGB, [id number], ALB #### [address] Automated blood monocyte cou ntOrdered By: Damien Holbrook on 10-11-2022 Monocytes (Bld) [#/Vol] 1.1 10*3/uL High 0.0-0.8 [facility] Comment on above: Performed By: #### A 1C WTH eA, HGB, [id number], ALB #### [address] Automated eosinophil %Ordere d By: Damien Holbrook on 10-11-2022 Eosinophils/100 WBC (Bld) 0.4 % Normal . [facility] Comment on above: Performed By: #### A 1C WTH eA, HGB, [id number], ALB #### [address] Automated eosinophil countOr dered By: Damien Holbrook on 10-11-2022 Eosinophils (Bld) [#/Vol] 0.0 10*3/uL Normal 0.0-0.45 [facility] Comment on above: Performed By: #### A 1C WTH eA, HGB, [id number], ALB #### [address] Automated erythrocytes count in urine sediment (number/area)Ordered By: Damien Holbrook on 10-11-2022 RBC Auto (Urine sed) [#/Area] 3-4 [HPF] 0-4 [facility] Automated leukocytes count i n urine sediment (number/area)Ordered By: Damien Holbrook on 10-11-2022 WBC Auto (Urine sed) [#/Area] 3-4 [HPF] 0-4 [facility] Automated monocyte %Ordered By: Damien Holbrook on 10-11-2022 Monocytes/100 WBC (Bld) 9.1 % Normal . [facility] Comment on above: Performed By: #### A 1C WT eA, HGB, [id number], ALB #### [facility] [address] Automated neutrophil %Ordere d By: Damien Holbrook on 10-11-2022 Neutrophils/100 WBC (Bld) 76.4 % Normal . [facility] Comment on above: Performed By: #### A 1C WTH eA, HGB, [id number], ALB #### [facility] [address] Automated urine color determ inationOrdered By: Damien Holbrook on 10-11-2022 Color (U) Dark yellow Critically abnormal Yellow [facility] Comment on above: Order Comment: Reaso n for Exam Primary osteoarthritis 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;Other meterman (current Performed By: #### A 1C WTH eA, HGB, [id number], ALB #### [facility] [address] [place] [address] Automated urine hyaline cast s count (number/volume)Ordered By: Damien Holbrook on 10-11-2022 Hyaline casts Auto (U) [#/Vol] 20-49 [LPF] 0-1 [facility] BNP ser/plasOrdered By: Robert Holbrook on 10-11-2022 Natriuretic peptide B (Bld) [Mass/Vol] 206.0 pg/mL High 5-100 [facility] Comment on above: Result Comment: PERF ORMED BY: [place] [address] PATHOLOGIST CANDY COUNTER CLERK ALAYNA CAPONE M.D. Performed By: #### B BLANK DRILLER #### [facility] [address] Bilirubin Test strip Ql (U)O rdered By: Damien Holbrook on 10-11-2022 Bilirubin Ql (U) 1+ Negative [facility] Bilirubin.total [Mass/volume ] in Serum or PlasmaOrdered By: Damien Holbrook on 10-11-2022 Bilirubin [Mass/Vol] 1.0 mg/dL Normal 0.3-1.0 [facility] Comment on above: Performed By: #### A 1C WTH eA, HGB, [id number], ALB #### [facility] [address] [place] [address] CT head/brain wo conon 10-11 CT head/brain wo con [facility] [place] [address] [place] [address] CT Scan Report Signed Patient: Esme Steven MR#: [id number] : 1960 Acct:[id number] Age/Sex: 61 / M ADM Date: 10/11/22 Loc: ER Room: Type: [facility] ER Attending Dr: Copies to: Damien Holbrook PA-C Ordering Provider: Damien Holbrook PA-C Date of Service: 10/11/22 CT/CT head/brain wo con: severe headache, dizzy, aphasia Unenhanced head CT TECHNIQUE: Contiguous axial imaging of the head. The CT exam was performed using one or more the following dose reduction techniques: Automated exposure control, adjustment of the MA and/or Kv according to patient size, or use of the iterative reconstruction technique. COMPARISON: None HISTORY: Headache. VENTRICLES: Within normal limits ATROPHY: None BRAIN PARENCHYMA: Adequate horn-white matter differentiation identified. HEMORRHAGE: None HERNIATION: No mass effect or herniation INFARCTION: No recent vascular distribution infarction is seen. EXTRA-AXIAL FLUID COLLECTIONS None MIDBRAIN: Unremarkable AXEL: Unremarkable MEDULLA: Unremarkable SINUSES: Unremarkable ORBITS: Grossly unremarkable MASTOIDS: Unremarkable BONY STRUCTURES Intact ADDITIONAL FINDINGS: CT/CT head/brain wo con IMPRESSION: Unremarkable exam Impression dictated by: Matt Ferrell M.D.10/11/2022 3:37 PM Dictation Location: [place] [address] Transcribed By: [facility] 10/11/221536 Dictated By: Matt Ferrell DO 10/11/221535 Signed By: 10/11/22 153 Normal [facility] Calcium [Mass/volume] in Ser um or PlasmaOrdered By: Damien Holbrook on 10-11-2022 Calcium [Mass/Vol] 9.7 mg/dL Normal 8.6-10.3 [facility] Comment on above: Performed By: #### A 1C WTH eA, HGB, [id number], ALB #### [facility] [address] [place] [phone] [facility] Carbon dioxide, total [Moles /volume] in Serum or PlasmaOrdered By: Damien Holbrook on 10-11-2022 CO2 [Moles/Vol] 27.5 mmol/L Normal 21.0-31.0 [facility] Comment on above: Performed By: #### A 1C WTH eA, HGB, [id number], ALB #### [facility] [address] [place] [phone] [place] Chloride [Moles/volume] in S ursula or PlasmaOrdered By: Damien Holbrook on 10-11-2022 Chloride [Moles/Vol] 101 mmol/L Normal 98-107 [facility] Comment on above: Performed By: #### A 1C WTH eA, HGB, [id number], ALB #### [facility] [address] [place] [phone] [place] Complete Blood Count Auto Di ffon 10-11-2022 Mean Corpuscular HGB Conc 34.2 g/dL Normal 32.5-35.6 [facility] Comment on above: Performed By: #### A 1C WTH eA, HGB, [id number], ALB #### [facility] [address] [place] [phone] [place] Monocytes/100 WBC (Bld) 21.21 % High 0.00-20.00 [facility] Comment on above: Result Comment: For adults in ED, MDW > 20.0 may be associated with a higher risk of sepsis during the first 12 hrs of hospital admission Performed By: #### A 1C WTH eA, HGB, [id number], ALB #### [facility] [address] NRBC% 0.1 /100{WBC} Normal 0-0.5 [facility] Comment on above: Performed By: #### A 1C WTH eA, HGB, [id number], ALB #### [facility] [address] Comprehensive Metabolic Pane jose 10-11-2022 Albumin [Mass/Vol] 4.3 g/dL Normal 3.5-5.7 [facility] Comment on above: Performed By: #### A 1C WTH eA, HGB, [id number], ALB #### [address] GFR/1.73 sq M.predicted MDRD (S/P/Bld) [Vol rate/Area] mL/min/{1.73_m2} Normal [facility] Comment on above: Performed By: #### A 1C WTH eA, HGB, [id number], ALB #### [address] Creatinine [Mass/volume] in Serum or PlasmaOrdered By: Damien Holbrook on 10-11-2022 Creatinine [Mass/Vol] 1.25 mg/dL Normal 0.70-1.30 [facility] Comment on above: Performed By: #### A 1C WTH eA, HGB, [id number], ALB #### [address] Dipstick and Microscopicon 0 10-11-2022 Appearance (U) Cloudy Critically abnormal Clear [facility] Comment on above: Order Comment: Reaso n for Exam Primary osteoarthritis 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;Other meterman (current Performed By: #### A 1C WTH eA, HGB, [id number], ALB #### [address] Bacteria,Urine None Seen Normal None Seen [facility] Comment on above: Order Comment: Reaso n for Exam Primary osteoarthritis 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;Other meterman (current Performed By: #### A 1C WTH eA, HGB, [id number], ALB #### [facility] [address] [place] [address] [place] Bilirubin,Urine 1+ High Negative [facility] Comment on above: Order Comment: Reaso n for Exam Primary osteoarthritis 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;Other meterman (current Performed By: #### A 1C WTH eA, HGB, [id number], ALB #### [facility] [address] Glucose Ql (U) Normal Normal Normal [facility] Comment on above: Order Comment: Reaso n for Exam Primary osteoarthritis 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;Other meterman (current Performed By: #### A 1C WTH eA, HGB, [id number], ALB #### [address] Hyaline Casts,Urine 20-49 High 0-1 [facility] Comment on above: Order Comment: Reaso n for Exam Primary osteoarthritis 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;Other detention (current Result Comment: PERF ORMED BY: [place] [address] PATHOLOGIST CANDY COUNTER CLERK ALAYNA CAPONE M.D. Performed By: #### A 1C WTH eA, HGB, [id number], ALB #### [address] Ketones Ql (U) Trace High Negative [facility] Comment on above: Order Comment: Reaso n for Exam Primary osteoarthritis 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;Other meterman (current Performed By: #### A 1C WTH eA, HGB, [id number], ALB #### [facility] [address] Leukocyte esterase Test strip Ql (U) 1+ High Negative [facility] Comment on above: Order Comment: Reaso n for Exam Primary osteoarthritis 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;Other meterman (current Performed By: #### A 1C WTH eA, HGB, [id number], ALB #### [address] Nitrite,Urine Negative Normal Negative [facility] Comment on above: Order Comment: Reaso n for Exam Primary osteoarthritis 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;Other meterman (current Performed By: #### A 1C WTH eA, HGB, [id number], ALB #### [address] Occult Blood,Urine Negative Normal Negative [facility] Comment on above: Order Comment: Reaso n for Exam Primary osteoarthritis 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;Other meterman (current Result Comment: PERF ORMED BY: [place] [address] PATHOLOGIST CANDY COUNTER CLERK ALAYNA CAPONE M.D. Performed By: #### A 1C WTH eA, HGB, [id number], ALB #### [address] RBC,Urine 3-4 Normal 0-4 [facility] Comment on above: Order Comment: Reaso n for Exam Primary osteoarthritis 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;Other meterman (current Performed By: #### A 1C WTH eA, HGB, [id number], ALB #### [place] [address] [place] Specificy [place],Urine 1.027 Normal 1.001-1.03 0 [facility] Comment on above: Order Comment: Reaso n for Exam Primary osteoarthritis 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;Other meterman (current Performed By: #### A 1C WTH eA, HGB, [id number], ALB #### [place] [address] [place] Squamous Epithelial Cell,Urine 0-1 Normal 0-2 [facility] Comment on above: Order Comment: Reaso n for Exam Primary osteoarthritis 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;Other detention (current Performed By: #### A 1C WTH eA, HGB, [id number], ALB #### [place] [address] [place] Urobilinogen,Urine Normal Normal Normal [facility] Comment on above: Order Comment: Reaso n for Exam Primary osteoarthritis 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;Other detention (current Performed By: #### A 1C WTH eA, HGB, [id number], ALB #### [facility] [address] WBC,Urine 3-4 Normal 0-4 [facility] Comment on above: Order Comment: Reaso n for Exam Primary osteoarthritis 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;Other meterman (current Performed By: #### A 1C WTH eA, HGB, [id number], ALB #### [facility] [address] ECG 12 lead ECGon 10-11-2022 ECG 12 lead ECG [facility] [place] [address] [place] [address] Electrocardiograph Report Signed Patient: Esme Steven MR#: [id number] : 1960 Acct:[id number] Age/Sex: 61 / M ADM Date: 10/11/22 Loc: ER Room: Type: [facility] ER Attending Dr: Ordering Provider: Damien Holbrook PA-C Date of Service: 10/11/2208/29/1217 ECG/ECG 12 lead ECG: Headache Copies to: Test Reason : Blood Pressure : / mmHG Vent. Rate : 088 BPM Atrial Rate : 088 BPM P-R Int : 150 ms QRS Dur : 108 ms QT Int : 378 ms P-R-T Axes : 039 011 179 degrees QTc Int : 457 ms Sinus rhythm with frequent premature ventricular complexes Possible Inferior infarct , age undetermined T wave abnormality, consider lateral ischemia Abnormal ECG When compared with ECG of 31-DEC-2012 10:33, Previous ECG has undetermined rhythm, needs review Non-specific change in ST segment in Inferior leads Non-specific change in ST segment in Lateral leads T wave inversion more evident in Lateral leads Confirmed by JOAQUIN RAMOS MD ([id number]) on 10/11/2022 8:28:49 PM Referred By: Electronically Signed By:JOAQUIN RAMOS MD Transcribed By: MUS Signed By Joaquin Ramos MD 08/29 Normal [facility] Erythrocyte distribution wid th [Ratio] by Automated countOrdered By: Damien Holbrook on 10-11-2022 Erythrocyte distribution width (RBC) [Ratio] 14.4 % Normal 12.0-14.8 [facility] Comment on above: Performed By: #### A 1C WTH eA, HGB, [id number], ALB #### [facility] [address] Erythrocytes [#/volume] in B lood by Automated countOrdered By: Damien Holbrook on 10-11-2022 RBC (Bld) [#/Vol] 4.38 10*6/uL Normal 3.90-5.60 [facility] Comment on above: Performed By: #### A 1C WTH eA, HGB, [id number], ALB #### [facility] [address] [place] [address] [place] Glucose [Mass/volume] in Ser um or PlasmaOrdered By: Damien Holbrook on 10-11-2022 Glucose [Mass/Vol] 128 mg/dL High 70-100 [facility] Comment on above: ADA recommended refe rence rangeRandom Glucose Reference Range is dependent on time and content of last meal. Glucose of more than 200 mg/dL in a nonstressed, ambulatory subject supports the diagnosis of Diabetes Mellitus. Result Comment: [place] om Glucose Reference Range is dependent on time and content of last meal. Glucose of more than 200 mg/dL in a nonstressed, ambulatory subject supports the diagnosis of Diabetes Mellitus. ADA recommended reference range Performed By: #### A 1C WTH eA, HGB, [id number], ALB #### [facility] [address] [place] [address] [place] Hematocrit [Volume Fraction] of Blood by Automated countOrdered By: Damien Holbrook on 10-11-2022 Hematocrit (Bld) [Volume fraction] 45.3 % Normal 38.8-50.0 [facility] Comment on above: Performed By: #### A 1C WTH eA, HGB, [id number], ALB #### [facility] [address] Hemoglobin [Mass/volume] in BloodOrdered By: Damien Holbrook on 10-11-2022 Hemoglobin (Bld) [Mass/Vol] 15.5 g/dL Normal 13.0-17.0 [facility] Comment on above: Performed By: #### A 1C WT eA, HGB, [id number], ALB #### [facility] [address] Ketones Auto test strip (U) [Mass/Vol]Ordered By: Damien Holbrook on 10-11-2022 Ketones (U) [Mass/Vol] Trace Negative [facility] Leukocytes [#/volume] correc collins for nucleated erythrocytes in Blood by Automated counOrdered By: Damien Holbrook on 10-11-2022 WBC corrected for nucl RBC Auto (Bld) [#/Vol] 11.9 10*3/uL 4.1-10.5 [facility] Leukocytes [#/volume] in Blo od by Automated countOrdered By: Damien Holbrook on 10-11-2022 WBC (Bld) [#/Vol] 11.9 10*3/uL High 4.1-10.5 [facility] Comment on above: Performed By: #### A 1C WT eA, HGB, [id number], ALB #### [facility] [address] Lymphocytes [#/volume] in Bl ood by Automated countOrdered By: Damien Holbrook on 10-11-2022 Lymphocytes (Bld) [#/Vol] 1.5 10*3/uL Normal 1.00-4.8 [facility] Comment on above: Performed By: #### A 1C WT eA, HGB, [id number], ALB #### [facility] [address] [place] [address] [place] Lymphocytes/100 leukocytes i n Blood by Automated countOrdered By: Damien Holbrook on 10-11-2022 Lymphocytes/100 WBC (Bld) 13.0 % Normal . [facility] Comment on above: Performed By: #### A 1C WTH eA, HGB, [id number], ALB #### [facility] [address] [place] [address] [place] MCH [Entitic mass] by Automa collins countOrdered By: Damien Holbrook on 10-11-2022 MCH (RBC) [Entitic mass] 35.3 pg High 27.5-35.2 [facility] Comment on above: Performed By: #### A 1C WT eA, HGB, [id number], ALB #### [address] MCHC Auto (RBC) [Mass/Vol]Or dered By: Damien Holbrook on 10-11-2022 MCHC (RBC) [Mass/Vol] 34.2 g/dL 32.5-35.6 [facility] MCV [Entitic volume] by Auto mated countOrdered By: Damien Holbrook on 10-11-2022 MCV (RBC) [Entitic vol] 103.4 fL High 83.5-101 [facility] Comment on above: Performed By: #### A 1C [facility] eA, HGB, [id number], ALB #### [address] Magnesium [Mass/volume] in S ursula or PlasmaOrdered By: Damien Holbrook on 10-11-2022 Magnesium [Mass/Vol] 1.6 mg/dL Low 1.9-2.7 [facility] Comment on above: Result Comment: PERF ORMED BY: [place] [address] PATHOLOGIST CANDY COUNTER CLERK ALAYNA CAPONE M.D. Performed By: #### A 1C WT eA, HGB, [id number], ALB #### [address] Monocyte distribution width [Entitic volume] in Blood by AutomatedOrdered By: Damien Holbrook on 10-11-2022 Monocyte distribution width Auto (Bld) [Entitic vol] 21.21 % 0.00-20.00 [facility] Comment on above: For adults in ED, MD W > 20.0 may be associated with a higher risk of sepsis during the first 12 hrs of hospital admission Neutrophils [#/volume] in Bl ood by Automated countOrdered By: Damien Holbrook on 10-11-2022 Neutrophils (Bld) [#/Vol] 9.1 10*3/uL High 1.8-7.7 [facility] Comment on above: Performed By: #### A 1C WT eA, HGB, [id number], ALB #### [address] Nitrite Test strip Ql (U)Ord ered By: Damien Holbrook on 10-11-2022 Nitrite Ql (U) Negative Negative [facility] No Panel InformationOrdered By: Damien Holbrook on 10-11-2022 Estimated GFR (CKD-EPI) > 60.0 mL/Min [facility] Creatinine Clearance (Chem N/A [facility] Nucleated erythrocytes [Pres ence] in Blood by Automated countOrdered By: Damien Holbrook on 10-11-2022 Nucleated RBC Auto Ql (Bld) 0.1 /100{WBC} 0-0.5 [facility] Partial Thromboplastin Timeo n 10-11-2022 aPTT Coag (Bld) [Time] 24.5 s Low 25.1-36.5 Th e [facility] Comment on above: Result Comment: PERF ORMED BY: [place] [address] PATHOLOGIST CANDY COUNTER CLERK ALAYNA CAPONE M.D. Performed By: #### A 1C WT eA, HGB, [id number], ALB #### [address] Platelet mean volume [Entiti c volume] in Blood by Automated countOrdered By: Damien Holbrook on 10-11-2022 Platelet mean volume (Bld) [Entitic vol] 8.6 fL Normal 6.6-10.1 [facility] Comment on above: Performed By: #### A 1C WTH eA, HGB, [id number], ALB #### [address] Platelet poor plasma interna tional normalized ratio (INR) by coagulation assay (relatOrdered By: Damien Holbrook on 10-11-2022 INR Coag (PPP) [Relative time] 1.0 {INR} Normal [facility] Comment on above: INR Therapeutic Rang e A) Pre- and Peroperative OAT started two weeks before surgery. NOT HIP SURGERY: 1.5 - 2.5 HIP SURGERY: 2 - 3B) Primary and secondary prevention of venous THROMBOSIS: 2 - 3C) Active venous thrombosis, pulmonary embolismand prevention of recurrent venous thrombosis: 2 - 3D) Prevention of arterial thromboembolismincluding patients with mechanical heart valves: 3 - 4.5 Result Comment: INR Therapeutic Range A) Pre- and Peroperative OAT started two weeks before surgery. NOT HIP SURGERY: 1.5 - 2.5 HIP SURGERY: 2 - 3 B) Primary and secondary prevention of venous THROMBOSIS: 2 - 3 C) Active venous thrombosis, pulmonary embolism and prevention of recurrent venous thrombosis: 2 - 3 D) Prevention of arterial thromboembolism including patients with mechanical heart valves: 3 - 4.5 Performed By: #### A 1C WTH eA, HGB, [id number], ALB #### [facility] [address] [place] [address] [place] Platelets [#/volume] in Bloo d by Automated countOrdered By: Damien Holbrook on 10-11-2022 Platelets (Bld) [#/Vol] 197 10*3/uL Normal 150-450 [facility] Comment on above: Performed By: #### A 1C WTH eA, HGB, [id number], ALB #### [facility] [address] [place] [address] [place] Potassium [Moles/volume] in Serum or PlasmaOrdered By: Damien Holbrook on 10-11-2022 Potassium [Moles/Vol] 4.0 mmol/L Normal 3.5-5.1 [facility] Comment on above: Performed By: #### A 1C WTH eA, HGB, [id number], ALB #### [facility] [address] [place] [address] [place] Protein [Mass/volume] in Ser um or PlasmaOrdered By: Damien Holbrook on 10-11-2022 Protein [Mass/Vol] 7.1 g/dL Normal 6.4-8.9 [facility] Comment on above: Performed By: #### A 1C WTH eA, HGB, [id number], ALB #### [place] [address] [place] Prothrombin Time INROrdered By: Damien Holbrook on 10-11-2022 PT Coag (PPP) [Time] 11.8 s Normal 9.0-12.9 [facility] Comment on above: Performed By: #### A 1C WTH eA, HGB, [id number], ALB #### [facility] [address] Serum globulin measurement b y calculation (mass/volume)Ordered By: Damien Holbrook on 10-11-2022 Globulin (S) [Mass/Vol] 2.8 g/dL [facility] Comment on above: Performed By: #### A 1C WTH eA, HGB, [id number], ALB #### [facility] [address] Serum or plasma albumin/glob ulin mass ratioOrdered By: Damien Holbrook on 10-11-2022 Albumin/Globulin [Mass ratio] 1.5 {ratio} [facility] Comment on above: Performed By: #### A 1C WT eA, HGB, [id number], ALB #### [facility] [address] Serum or plasma anion gap de terminationOrdered By: Damien Holbrook on 10-11-2022 Anion gap [Moles/Vol] 12.5 mmol/L Normal 6.0-15.0 [facility] Comment on above: Performed By: #### A 1C WTH eA, HGB, [id number], ALB #### [address] Sodium [Moles/volume] in Ser um or PlasmaOrdered By: Damien Holbrook on 10-11-2022 Sodium [Moles/Vol] 137 mmol/L Normal 136-145 [facility] Comment on above: Performed By: #### A 1C WTH eA, HGB, [id number], ALB #### [facility] [address] Specific gravity Auto test s trip (U) [Rel density]Ordered By: Damien Holbrook on 10-11-2022 Specific gravity (U) [Rel density] 1.027 1.001-1.03 0 [facility] Squamous epithelial cells de tection in urine sediment by light microscopyOrdered By: Damien Holbrook on 10-11-2022 Epithelial cells.squamous LM Ql (Urine sed) 0-1 [HPF] 0-2 [facility] Troponin I High Sensitivityo n 10-11-2022 Troponin I High Sensitivity 17.7 pg/mL Normal 0.0-20.0 [facility] Comment on above: Result Comment: PERF ORMED BY: [place] [address] PATHOLOGIST CANDY COUNTER CLERK ALAYNA CAPONE M.D. Performed By: #### A 1C WT eA, HGB, [id number], ALB #### [address] Troponin I High Sensitivity 18.1 pg/mL Normal 0.0-20.0 [facility] Comment on above: Result Comment: PERF ORMED BY: [place] [address] PATHOLOGIST CANDY COUNTER CLERK ALAYNA CAPONE M.D. Performed By: #### A 1C WTH eA, HGB, [id number], ALB #### [address] Troponin I.cardiac [Mass/vol ume] in Serum or Plasma by Detection limit <= 0.01 ng/Ordered By: Damien Holbrook on 10-11-2022 Troponin I.cardiac DL <= 0.01 ng/mL [Mass/Vol] 17.7 pg/mL 0.0-20.0 [facility] Urea nitrogen [Mass/volume] in Serum or PlasmaOrdered By: Damien Holbrook on 10-11-2022 Urea nitrogen [Mass/Vol] 19 mg/dL Normal 7-25 [facility] Comment on above: Performed By: #### A 1C WTH eA, HGB, [id number], ALB #### [address] Urine bacteria detection by automated methodOrdered By: Damien Holbrook on 10-11-2022 Bacteria Auto Ql (U) None seen None Seen [facility] Urine clarity by refractomet ry automatedOrdered By: Damien Holbrook on 10-11-2022 Clarity Refractometry automated (U) Cloudy Clear [facility] Urine glucose measurement by automated test strip (mass/volume)Ordered By: Damien Holbrook on 10-11-2022 Glucose Auto test strip (U) [Mass/Vol] Normal mg/dL Normal [facility] Urine hemoglobin detection b y automated test stripOrdered By: Damien Holbrook on 10-11-2022 Hemoglobin Auto test strip Ql (U) Negative Negative [facility] Urine leukocyte esterase det ection by automated test stripOrdered By: Damien Holbrook on 10-11-2022 Leukocyte esterase Auto test strip Ql (U) 1+ Negative [facility] Urine pH measurement by auto mated test stripOrdered By: Damien Holbrook on 10-11-2022 pH (U) 5.5 [pH] Normal 5.0-9.0 [facility] Comment on above: Order Comment: Reaso n for Exam Primary osteoarthritis 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;Other meterman (current Performed By: #### A 1C WT eA, HGB, [id number], ALB #### [facility] [address] [place] [address] [place] Urine protein measurement by automated test strip (mass/volume)Ordered By: Damien Holbrook on 10-11-2022 Protein (U) [Mass/Vol] 100 mg/dL High Negative [facility] Comment on above: Order Comment: Reaso n for Exam Primary osteoarthritis 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;Other detention (current Performed By: #### A 1C WTH eA, HGB, [id number], ALB #### [facility] [address] [place] [id number] [place] Urobilinogen Auto test strip (U) [Mass/Vol]Ordered By: Damien Holbrook on 10-11-2022 Urobilinogen (U) [Mass/Vol] Normal mg/dL Normal [facility] Anti-Corona Antibodieson 09-08 Anti-Corona Antibodies <0.2 Normal 0.0-0.9 [facility] Comment on above: Performed By: #### A 1C WTH eA, HGB, [id number], ALB #### [facility] [address] [place] [id number] [place] Anti-dsDNA(DBL)Abon 10-03-19 23 Anti-dsDNA(DBL)Ab <1 Normal 0-9 [facility] Comment on above: Result Comment: Nega tive <5 Equivocal 5 - 9 Positive >9 Performed at: - [facility] [id number] Capacity Analyst: Lucas Cooper PhD, Phone: [phone] PERFORMED BY: [place] [address] PATHOLOGIST CANDY COUNTER CLERK ALAYNA CAPONE M.D. Performed By: #### A 1C WTH eA, HGB, [id number], ALB #### [address] Automated basophil %Ordered By: Sarai Georges on 10-02-2022 Basophils/100 WBC (Bld) 0.6 % Normal . [facility] Comment on above: Performed By: #### A 1C WTH eA, HGB, [id number], ALB #### [address] Automated basophil countOrde red By: Sarai Georges on 10-02-2022 Basophils (Bld) [#/Vol] 0.1 10*3/uL Normal 0.0-0.2 [facility] Comment on above: Performed By: #### A 1C WTH eA, HGB, [id number], ALB #### [address] Automated blood monocyte cou ntOrdered By: Sarai Georges on 10-02-2022 Monocytes (Bld) [#/Vol] 0.7 10*3/uL Normal 0.0-0.8 [facility] Comment on above: Performed By: #### A 1C WTH eA, HGB, [id number], ALB #### [address] Automated eosinophil %Ordere d By: Sarai Georges on 10-02-2022 Eosinophils/100 WBC (Bld) 0.5 % Normal . [facility] Comment on above: Performed By: #### A 1C WT eA, HGB, [id number], ALB #### [facility] [address] Automated eosinophil countOr dered By: Sarai Georges on 10-02-2022 Eosinophils (Bld) [#/Vol] 0.0 10*3/uL Normal 0.0-0.45 [facility] Comment on above: Performed By: #### A 1C WTH eA, HGB, [id number], ALB #### [facility] [address] Automated erythrocytes count in urine sediment (number/area)Ordered By: Sarai Georges on 10-02-2022 RBC Auto (Urine sed) [#/Area] 1-2 [HPF] 0-4 [facility] Automated leukocytes count i n urine sediment (number/area)Ordered By: Sarai Georges on 10-02-2022 WBC Auto (Urine sed) [#/Area] None seen [HPF] 0-4 [facility] Automated monocyte %Ordered By: Sarai Georges on 10-02-2022 Monocytes/100 WBC (Bld) 7.2 % Normal . [facility] Comment on above: Performed By: #### A 1C WT eA, HGB, [id number], ALB #### [facility] [address] Automated neutrophil %Ordere d By: Sarai Georges on 10-02-2022 Neutrophils/100 WBC (Bld) 73.2 % Normal . [facility] Comment on above: Performed By: #### A 1C WTH eA, HGB, [id number], ALB #### [facility] [address] Bilirubin Auto test strip Ql (U)Ordered By: Sarai Georges on 10-02-2022 Bilirubin Ql (U) Negative Negative [facility] C reactive protein [Mass/vol ume] in Serum or PlasmaOrdered By: Sarai Georges on 10-02-2022 CRP [Mass/Vol] 0.5 mg/dL 0.0-0.5 [facility] C-Reactive Proteinon 023 C-Reactive Protein 0.5 mg/dL Normal 0.0-0.5 [facility] Comment on above: Result Comment: PERF ORMED BY: [place] [address] PATHOLOGIST CANDY COUNTER CLERK ALAYNA CAPONE M.D. Performed By: #### A 1C WTH eA, HGB, [id number], ALB #### [address] Complement C3on 10-02-2022 Complement C3 147 mg/dL Normal 82-167 [facility] Comment on above: Result Comment: Perf ormed at: [address] [id number] Capacity Analyst: Lucas Cooper PhD, Phone: [phone] Performed By: #### A 1C WTH eA, HGB, [id number], ALB #### [address] Complement C4on 10-02-2022 Complement C4 29 mg/dL Normal 12-38 [facility] Comment on above: Performed By: #### A 1C WTH eA, HGB, [id number], ALB #### [place] [address] [place] Complement Total (CH50)on Complement Total (CH50) >60 Normal >41 [facility] Comment on above: Result Comment: Age Male Female 1 - 30 days Not Estab. Not Estab. 31 days - 6 months >32 >20 7 months - 17 years >39 >39 >17 years >41 >41 NOTE: The adult ( >17 years ) reference interval range is used to flag abnormals on this report. If the patient is 17 years old or younger, use the table above to determine out of range values. Performed at: [address] [id number] Capacity Analyst: Lucas Cooper PhD, Phone: [phone] PERFORMED BY: [place] [address] PATHOLOGIST CANDY COUNTER CLERK ALAYNA CAPONE M.D. Performed By: #### A 1C WTH eA, HGB, [id number], ALB #### [address] Complete Blood Count Auto Di ffon 10-02-2022 Mean Corpuscular HGB Conc 33.9 g/dL Normal 32.5-35.6 [facility] Comment on above: Performed By: #### A 1C WTH eA, HGB, [id number], ALB #### [address] NRBC% 0.1 /100{WBC} Normal 0-0.5 [facility] Comment on above: Performed By: #### A 1C WTH eA, HGB, [id number], ALB #### [address] Creatine kinase [Enzymatic a ctivity/volume] in Serum or PlasmaOrdered By: Sarai Georges on 10-02-2022 CK [Catalytic activity/Vol] 52 U/L Normal 30-223 [facility] Comment on above: Result Comment: PERF ORMED BY: [place] [address] PATHOLOGIST CANDY COUNTER CLERK ALAYNA CAPONE M.D. Performed By: #### A 1C WTH eA, HGB, [id number], ALB #### [address] Creatinineon 10-02-2022 GFR/1.73 sq M.predicted MDRD (S/P/Bld) [Vol rate/Area] mL/min/{1.73_m2} Normal [facility] Comment on above: Performed By: #### A 1C WTH eA, HGB, [id number], ALB #### [address] Creatinine [Mass/volume] in Serum or PlasmaOrdered By: Sarai Georges on 10-02-2022 Creatinine [Mass/Vol] 1.00 mg/dL Normal 0.70-1.30 [facility] Comment on above: Performed By: #### A 1C WT eA, HGB, [id number], ALB #### [facility] [address] DNA double strand Ab [Units/ volume] in SerumOrdered By: Sarai Georges on 10-02-2022 DNA double strand Ab Qn (S) [IU]/mL 0-9 [facility] Comment on above: Negative <5 Equivoca l 5 - 9 Positive >9Performed at: - [facility] [place] [id number] Director: Lucas Cooper PhD, Phone: [phone] Dipstick and Microscopicon 0 10-02-2022 Bacteria,Urine None Seen Normal None Seen [facility] Comment on above: Order Comment: Reaso n for Exam Primary osteoarthritis 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;Other meterman (current Performed By: #### A 1C WTH eA, HGB, [id number], ALB #### [facility] [address] Bilirubin,Urine Negative Normal Negative [facility] Comment on above: Order Comment: Reaso n for Exam Primary osteoarthritis 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;Other detention (current Performed By: #### A 1C WTH eA, HGB, [id number], ALB #### [facility] [address] [place] [address] [place] Glucose Ql (U) Normal Normal Normal [facility] Comment on above: Order Comment: Reaso n for Exam Primary osteoarthritis 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;Other meterman (current Performed By: #### A 1C WTH eA, HGB, [id number], ALB #### [facility] [address] Hyaline Casts,Urine 0-8 Normal 0-8 [facility] Comment on above: Order Comment: Reaso n for Exam Primary osteoarthritis 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;Other detention (current Result Comment: PERF ORMED BY: [place] [address] PATHOLOGIST CANDY COUNTER CLERK ALAYNA CAPONE M.D. Performed By: #### A 1C WTH eA, HGB, [id number], ALB #### [facility] [address] Ketones Ql (U) Negative Normal Negative [facility] Comment on above: Order Comment: Reaso n for Exam Primary osteoarthritis 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;Other meterman (current Performed By: #### A 1C WTH eA, HGB, [id number], ALB #### [facility] [address] Leukocyte esterase Test strip Ql (U) Negative Normal Negative [facility] Comment on above: Order Comment: Reaso n for Exam Primary osteoarthritis 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;Other meterman (current Performed By: #### A 1C WTH eA, HGB, [id number], ALB #### [facility] [address] [place] [address] [place] Nitrite,Urine Negative Normal Negative [facility] Comment on above: Order Comment: Reaso n for Exam Primary osteoarthritis 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;Other meterman (current Performed By: #### A 1C WTH eA, HGB, [id number], ALB #### [facility] [address] [place] [address] [place] Occult Blood,Urine Negative Normal Negative [facility] Comment on above: Order Comment: Reaso n for Exam Primary osteoarthritis 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;Other meterman (current Performed By: #### A 1C WTH eA, HGB, [id number], ALB #### [facility] [address] [place] [address] [place] Protein,Urine Negative Normal Negative [facility] Comment on above: Order Comment: Reaso n for Exam Primary osteoarthritis 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;Other detention (current Performed By: #### A 1C WTH eA, HGB, [id number], ALB #### [facility] [address] [place] [address] [place] RBC,Urine 1-2 Normal 0-4 [facility] Comment on above: Order Comment: Reaso n for Exam Primary osteoarthritis 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;Other meterman (current Performed By: #### A 1C WTH eA, HGB, [id number], ALB #### [facility] [address] Specificy [place],Urine 1.015 Normal 1.001-1.03 0 [facility] Comment on above: Order Comment: Reaso n for Exam Primary osteoarthritis 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;Other meterman (current Performed By: #### A 1C WTH eA, HGB, [id number], ALB #### [facility] [address] Squamous Epithelial Cell,Urine None Seen Normal 0-2 [facility] Comment on above: Order Comment: Reaso n for Exam Primary osteoarthritis 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;Other meterman (current Performed By: #### A 1C WTH eA, HGB, [id number], ALB #### [facility] [address] Urobilinogen,Urine Normal Normal Normal [facility] Comment on above: Order Comment: Reaso n for Exam Primary osteoarthritis 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;Other detention (current Performed By: #### A 1C WTH eA, HGB, [id number], ALB #### [facility] [address] WBC,Urine None Seen Normal 0-4 [facility] Comment on above: Order Comment: Reaso n for Exam Primary osteoarthritis 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;Other meterman (current Performed By: #### A 1C WTH eA, HGB, [id number], ALB #### [address] Erythrocyte Sedimentation Ra kip 10-02-2022 ESR (Bld) [Velocity] 16 mm/h Normal 0-19 [facility] Comment on above: Result Comment: PERF ORMED BY: [place] [address] PATHOLOGIST CANDY COUNTER CLERK LAAYNA CAPONE M.D. Performed By: #### A 1C WTH eA, HGB, [id number], ALB #### [address] Erythrocyte distribution wid th [Ratio] by Automated countOrdered By: Sarai Georges on 10-02-2022 Erythrocyte distribution width (RBC) [Ratio] 14.9 % High 12.0-14.8 [facility] Comment on above: Performed By: #### A 1C WTH eA, HGB, [id number], ALB #### [facility] [address] Erythrocyte sedimentation ra te by Photometric methodOrdered By: Sarai Georges on 10-02-2022 ESR Photometric method (Bld) [Velocity] 16 mm/hr 0-19 [facility] Erythrocytes [#/volume] in B lood by Automated countOrdered By: Sarai Georges on 10-02-2022 RBC (Bld) [#/Vol] 3.94 10*6/uL Normal 3.90-5.60 [facility] Comment on above: Performed By: #### A 1C WTH eA, HGB, [id number], ALB #### [facility] [address] [place] [address] [place] Hematocrit [Volume Fraction] of Blood by Automated countOrdered By: Sarai Georges on 10-02-2022 Hematocrit (Bld) [Volume fraction] 41.2 % Normal 38.8-50.0 [facility] Comment on above: Performed By: #### A 1C WTH eA, HGB, [id number], ALB #### [facility] [address] Hemoglobin [Mass/volume] in BloodOrdered By: Sarai Georges on 10-02-2022 Hemoglobin (Bld) [Mass/Vol] 14.0 g/dL Normal 13.0-17.0 [facility] Comment on above: Performed By: #### A 1C WTH eA, HGB, [id number], ALB #### [facility] [address] Ketones Auto test strip (U) [Mass/Vol]Ordered By: Sarai Georges on 10-02-2022 Ketones (U) [Mass/Vol] Negative Negative [facility] - UrinalysisOrder ed By: Sarai Georges on 10-02-2022 Hyaline casts LM Ql (Urine sed) 0-8 [LPF] 0-8 [facility] Leukocytes [#/volume] correc collins for nucleated erythrocytes in Blood by Automated counOrdered By: Sarai Georges on 10-02-2022 WBC corrected for nucl RBC Auto (Bld) [#/Vol] 9.5 10*3/uL 4.1-10.5 [facility] Leukocytes [#/volume] in Blo od by Automated countOrdered By: Sarai Georges on 10-02-2022 WBC (Bld) [#/Vol] 9.5 10*3/uL Normal 4.1-10.5 [facility] Comment on above: Performed By: #### A 1C WTH eA, HGB, [id number], ALB #### [address] Lymphocytes [#/volume] in Bl ood by Automated countOrdered By: Sarai Georges on 10-02-2022 Lymphocytes (Bld) [#/Vol] 1.7 10*3/uL Normal 1.00-4.8 [facility] Comment on above: Performed By: #### A 1C WTH eA, HGB, [id number], ALB #### [place] [address] [place] Lymphocytes/100 leukocytes i n Blood by Automated countOrdered By: Sarai Georges on 10-02-2022 Lymphocytes/100 WBC (Bld) 18.5 % Normal . [facility] Comment on above: Performed By: #### A 1C WTH eA, HGB, [id number], ALB #### [place] [address] [place] MCH [Entitic mass] by Automa collins countOrdered By: Sarai Georges on 10-02-2022 MCH (RBC) [Entitic mass] 35.4 pg High 27.5-35.2 [facility] Comment on above: Performed By: #### A 1C WTH eA, HGB, [id number], ALB #### [place] [address] [place] MCHC Auto (RBC) [Mass/Vol]Or dered By: Sarai Georges on 10-02-2022 MCHC (RBC) [Mass/Vol] 33.9 g/dL 32.5-35.6 [facility] MCV [Entitic volume] by Auto mated countOrdered By: Sarai Georges on 10-02-2022 MCV (RBC) [Entitic vol] 104.5 fL High 83.5-101 [facility] Comment on above: Performed By: #### A 1C WTH eA, HGB, [id number], ALB #### [facility] [address] Neutrophils [#/volume] in Bl ood by Automated countOrdered By: Sarai Georges on 10-02-2022 Neutrophils (Bld) [#/Vol] 6.9 10*3/uL Normal 1.8-7.7 [facility] Comment on above: Performed By: #### A 1C WTH eA, HGB, [id number], ALB #### [facility] [address] No Panel InformationOrdered By: Sarai Georges on 10-02-2022 Estimated GFR (CKD-EPI) > 60.0 mL/Min [facility] Creatinine Clearance (Chem N/A [facility] Total Complement (CH50) >60 U/mL >41 [facility] Comment on above: Age Male Female 1 - 30 days Not Estab. Not Estab. 31 days - 6 months >32 >20 7 months - 17 years >39 >39 >17 years >41 >41 NOTE: The adult ( >17 years ) reference interval range is used to flag abnormals on this report. If the patient is 17 years old or younger, use the table above to determine out of range values.Performed at: - [address] [id number] Director: Lucas Cooper PhD, Phone: [phone] Nucleated erythrocytes [Pres ence] in Blood by Automated countOrdered By: Sarai Georges on 10-02-2022 Nucleated RBC Auto Ql (Bld) 0.1 /100{WBC} 0-0.5 [facility] Platelet mean volume [Entiti c volume] in Blood by Automated countOrdered By: Sarai Georges on 10-02-2022 Platelet mean volume (Bld) [Entitic vol] 8.9 fL Normal 6.6-10.1 [facility] Comment on above: Performed By: #### A 1C WT eA, HGB, [id number], ALB #### [facility] [address] Platelets [#/volume] in Bloo d by Automated countOrdered By: Sarai Georges on 10-02-2022 Platelets (Bld) [#/Vol] 201 10*3/uL Normal 150-450 [facility] Comment on above: Performed By: #### A 1C WT eA, HGB, [id number], ALB #### [facility] [address] [place] [id number] [facility] Protein Auto test strip (U) [Mass/Vol]Ordered By: Sarai Georges on 10-02-2022 Protein (U) [Mass/Vol] Negative Negative [facility] Serum Corona extractable nucl ear antigen (OPAL) antibody assay (units/volume)Ordered By: Sarai Georges on 10-02-2022 Corona extractable nuclear Ab Qn (S) <0.2 AI 0.0-0.9 [facility] Serum or plasma complement C 3 measurement (mass/volume)Ordered By: Sarai Georges on 10-02-2022 Complement C3 [Mass/Vol] 147 mg/dL 82-167 [facility] Comment on above: Performed at: [place] [id number] Director: Lucas Cooper PhD, Phone: [phone] Serum or plasma complement C 4 measurement (mass/volume)Ordered By: Sarai Georges on 10-02-2022 Complement C4 [Mass/Vol] 29 mg/dL 12-38 [facility] Squamous epithelial cells de tection in urine sediment by light microscopyOrdered By: Sarai Georges on 10-02-2022 Epithelial cells.squamous LM Ql (Urine sed) None seen [HPF] 0-2 [facility] Urine appearanceOrdered By: Sarai Georges on 10-02-2022 Appearance (U) Clear Normal Clear [facility] Comment on above: Order Comment: Reaso n for Exam Primary osteoarthritis 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;Other detention (current Performed By: #### A 1C WTH eA, HGB, [id number], ALB #### [facility] [address] [place] [address] [place] Urine bacteria detection by automated methodOrdered By: Sarai Georges on 10-02-2022 Bacteria Auto Ql (U) None seen None Seen [facility] Urine colorOrdered By: Tyler Georges on 10-02-2022 Color (U) Yellow Normal Yellow [facility] Comment on above: Order Comment: Reaso n for Exam Primary osteoarthritis 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;Other detention (current Performed By: #### A 1C WTH eA, HGB, [id number], ALB #### [facility] [address] [place] [address] [place] Urine glucose measurement by automated test strip (mass/volume)Ordered By: Sarai Georges on 10-02-2022 Glucose Auto test strip (U) [Mass/Vol] Normal mg/dL Normal [facility] Urine hemoglobin detection b y automated test stripOrdered By: Sarai Georges on 10-02-2022 Hemoglobin Auto test strip Ql (U) Negative Negative [facility] Urine leukocyte esterase det ection by automated test stripOrdered By: Sarai Georges on 10-02-2022 Leukocyte esterase Auto test strip Ql (U) Negative Negative [facility] Urine nitrite detection by a utomated test stripOrdered By: Sarai Georges on 10-02-2022 Nitrite Auto test strip Ql (U) Negative Negative [facility] Urine pH measurement by auto mated test stripOrdered By: Sarai Georges on 10-02-2022 pH (U) 6.5 [pH] Normal 5.0-9.0 [facility] Comment on above: Order Comment: Reaso n for Exam Primary osteoarthritis 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;Other meterman (current Performed By: #### A 1C WTH eA, HGB, [id number], ALB #### [facility] [address] [place] [address] [place] Urobilinogen Auto test strip (U) [Mass/Vol]Ordered By: Sarai Georges on 10-02-2022 Urobilinogen (U) [Mass/Vol] Normal mg/dL Normal [facility] pH Auto test strip (U)Ordere d By: Sarai Georges on 10-02-2022 pH (U) 1.015 [pH] 1.001-1.03 0 [facility] RETICULOCYTEon 07-31-2022 RETIC 3.90 % Critically high 0.60-3.10 [facility] Comment on above: Performed By: #### R ETIC #### [facility] [address] [place] [address] Dr. Tracy Hubbard VIT B12 AND FOLATEon 023 Cobalamin (Vitamin B12) [Mass/Vol] 436.0 pg/mL Normal 193.0-986. 0 [facility] Comment on above: Performed By: #### B 12FOL #### [facility] [address] [place] [address] Dr. Tracy Hubbard FOLATE 17.10 ng/mL Normal 8.60-58.90 [facility] Comment on above: Performed By: #### B 12FOL #### [facility] [address] [place] [address] Dr. Tracy Hubbard CBC AUTO DIFFon 07-29-2022 BASO # 0.1 103/ul Normal 0.0-0.1 [facility] Comment on above: Performed By: #### C BC #### [facility] [address] [place] [address] Dr. Tracy Hubbard Basophils/100 WBC (Bld) 0.7 % Normal 0.2-2.0 [facility] Comment on above: Performed By: #### C BC #### [facility] [address] [place] [address] Dr. Tracy Hubbard EO # 0.1 103/ul Normal 0.0-0.7 [facility] Comment on above: Performed By: #### C BC #### [facility] [address] [place] [address] Dr. Tracy Hubbard Eosinophils/100 WBC (Bld) 1.7 % Normal 0.9-7.0 [facility] Comment on above: Performed By: #### C BC #### [facility] [address] [place] [address] Dr. Tracy Hubbard Erythrocyte distribution width (RBC) [Ratio] 12.8 % Normal 11.0-15.0 [facility] Comment on above: Performed By: #### C BC #### [facility] [address] [place] [address] Dr. Tracy Hubbard Hematocrit (Bld) [Volume fraction] 44.6 % Normal 42.0-54.0 [facility] Comment on above: Performed By: #### C BC #### [facility] [address] [place] [address] Dr. Tracy Hubbard Hemoglobin (Bld) [Mass/Vol] 15.5 g/dL Normal 14.0-18.0 [facility] Comment on above: Performed By: #### C BC #### [facility] [address] [place] [address] Dr. Tracy Hubbard IG # 0.03 10e3/ul Normal 0.00-0.03 [facility] Comment on above: Performed By: #### C BC #### [facility] [address] [place] [address] Dr. Tracy Hubbard IG % 0.4 % Normal 0.0-0.5 [facility] Comment on above: Performed By: #### C BC #### [facility] [address] [place] [address] Dr. Tracy Hubbard LYMPH # 1.7 103/ul Normal 1.2-3.8 [facility] Comment on above: Performed By: #### C BC #### [facility] [address] [place] [address] Dr. Tracy Hubbard Lymphocytes/100 WBC (Bld) 24.8 % Normal 20.5-60.0 [facility] Comment on above: Performed By: #### C BC #### [facility] [address] [place] [address] Dr. Tracy Hubbard MANUAL DIFF REQ NO Normal [facility] Comment on above: Performed By: #### C BC #### [facility] [address] [place] [address] [address] Tracy Hubbard MCH (RBC) [Entitic mass] 35.7 pg Critically high 25.9-34.0 [facility] Comment on above: Performed By: #### C BC #### [facility] [address] [place] [address] [address] Tracy Hubbard MCHC (RBC) [Mass/Vol] 34.8 g/dL Normal 29.9-35.2 [facility] Comment on above: Performed By: #### C BC #### [facility] [address] [place] [address] Dr. Tracy Hubbard MCV (RBC) [Entitic vol] 102.8 fL Critically high 80.0-94.0 [facility] Comment on above: Performed By: #### C BC #### [facility] [address] [place] [address] Dr. Tracy Hubbard MONO # 0.7 103/ul Normal 0.3-0.8 [facility] Comment on above: Performed By: #### C BC #### [facility] [address] [place] [address] Dr. Tracy Hubbard Monocytes/100 WBC (Bld) 9.8 % Normal 1.7-12.0 [facility] Comment on above: Performed By: #### C BC #### [facility] [address] [place] [address] Dr. Tracy Hubbard NEUT # 4.4 103/ul Normal 1.4-6.5 [facility] Comment on above: Performed By: #### C BC #### [facility] [address] [place] [address] Dr. Tracy Hubbard Neutrophils/100 WBC (Bld) 62.6 % Normal 43.0-75.0 [facility] Comment on above: Performed By: #### C BC #### [facility] [address] [place] [address] Dr. Tracy Hubbard Platelet mean volume (Bld) [Entitic vol] 10.3 fL Normal 9.5-13.5 [facility] Comment on above: Performed By: #### C BC #### [facility] [address] [place] [address] [address] Tracy Hubbard PLT 182 103/ul Normal 150-450 [facility] Comment on above: Performed By: #### C BC #### [facility] [address] [place] [address] [address] Tracy Hubbard RBC 4.34 106/ul Critically low 4.70-6.10 [facility] Comment on above: Performed By: #### C BC #### [facility] [address] [place] [address] [address] Tracy Hubbard WBC 7.0 103/ul Normal 4.0-11.0 [facility] Comment on above: Performed By: #### C BC #### [facility] [address] [place] [address] Dr. Tracy Hubbard CPKon 07-29-2022 CK [Catalytic activity/Vol] 84 U/L Normal 39-308 [facility] Comment on above: Performed By: #### C MP, CRP, TSH, LIPID, CK #### [facility] [address] [place] [address] [address] Tracy Hubbard CRPon 07-29-2022 CRP [Mass/Vol] mg/L Normal <=1.0 [facility] Comment on above: Performed By: #### C MP, CRP, TSH, LIPID, CK #### [facility] [address] [place] [address] Dr. Tracy Hubbard LIPID PROFILEon 07-29-2022 CHOL-HDL RATIO NORM SEE BELOW Normal [facility] Comment on above: Result Comment: 3.3 - 4.4 LOW RISK 4.4 - 7.1 AVERAGE RISK 7.1 - 11.0 MODERATE RISK >11.0 HIGH RISK Performed By: #### C MP, CRP, TSH, LIPID, CK #### [facility] [address] [place] [address] Dr. Tracy Hubbard Cholesterol [Mass/Vol] 145 mg/dL Normal <=200 [facility] Comment on above: Performed By: #### C MP, CRP, TSH, LIPID, CK #### [facility] [address] [place] [address] [address] Tracy Hubbard Cholesterol in HDL [Mass/Vol] 45 mg/dL Normal 40-60 [facility] Comment on above: Performed By: #### C MP, CRP, TSH, LIPID, CK #### [facility] [address] [place] [address] [address] Tracy Hubbard Cholesterol in LDL [Mass/Vol] 64.4 mg/dL Normal [facility] Comment on above: Performed By: #### C MP, CRP, TSH, LIPID, CK #### [facility] [address] [place] [address] [address] Tracy Hubbard Cholesterol.total/Chol esterol in HDL [Mass ratio] 3.2 {ratio} Normal [facility] Comment on above: Performed By: #### C MP, CRP, TSH, LIPID, CK #### [facility] [address] [place] [address] [address] Tracy Hubbard HDL NORMAL > or = 60 mg/dl - LO W CARDIOVASCULAR RISK <40 mg/dl - HIGH CARDIOVASCULAR RISK Normal [facility] Comment on above: Performed By: #### C MP, CRP, TSH, LIPID, CK #### [facility] [address] [place] [address] [address] Tracy Hubbard LDL CALC NORMAL SEE BELOW Normal [facility] Comment on above: Result Comment: <100 mg/dl OPTIMAL 100 - 129 mg/dl NEAR OR ABOVE OPTIMAL 130 - 159 mg/dl BORDERLINE HIGH 160 - 189 mg/dl HIGH >190 mg/dl VERY HIGH Performed By: #### C MP, CRP, TSH, LIPID, CK #### [facility] [address] [address] [address] Tracy Hubbard Triglyceride [Mass/Vol] 178 mg/dL Critically high <=150 [facility] Comment on above: Performed By: #### C MP, CRP, TSH, LIPID, CK #### [facility] [address] [address] [address] Tracy Hubbard VLDL CALC 35.6 mg/dL Normal [facility] Comment on above: Performed By: #### C MP, CRP, TSH, LIPID, CK #### [facility] [address] [address] [address] Tracy Hubbard PROF 14(COMP METB)on 023 Albumin [Mass/Vol] 4.1 g/dL Normal 3.4-5.0 [facility] Comment on above: Performed By: #### C MP, CRP, TSH, LIPID, CK #### [facility] [address] [place] [address] Dr. Tracy Hubbard Albumin/Globulin [Mass ratio] 1.2 {ratio} Normal [facility] Comment on above: Performed By: #### C MP, CRP, TSH, LIPID, CK #### [facility] [address] [place] [address] Dr. Tracy Hubbard ALP [Catalytic activity/Vol] 66 U/L Normal 46-116 [facility] Comment on above: Performed By: #### C MP, CRP, TSH, LIPID, CK #### [facility] [address] [place] [address] Dr. Tracy Hubbard ALT [Catalytic activity/Vol] 44 U/L Normal 16-63 [facility] Comment on above: Performed By: #### C MP, CRP, TSH, LIPID, CK #### [facility] [address] [place] [address] Dr. Tracy Hubbard Anion gap [Moles/Vol] 12.3 mmol/L Normal [facility] Comment on above: Performed By: #### C MP, CRP, TSH, LIPID, CK #### [facility] [address] [place] [address] Dr. Tracy Hubbard AST [Catalytic activity/Vol] 26 U/L Normal 15-37 [facility] Comment on above: Performed By: #### C MP, CRP, TSH, LIPID, CK #### [facility] [address] [place] [address] Dr. Tracy Hubbard Bilirubin [Mass/Vol] 0.8 mg/dL Normal 0.2-1.0 [facility] Comment on above: Performed By: #### C MP, CRP, TSH, LIPID, CK #### [facility] [address] [place] [address] Dr. Tracy Hubbard Calcium [Mass/Vol] 8.9 mg/dL Normal 8.5-10.1 [facility] Comment on above: Performed By: #### C MP, CRP, TSH, LIPID, CK #### [facility] [address] [place] [address] Dr. Tracy Hubbard Chloride [Moles/Vol] 103 mmol/L Normal 98-107 [facility] Comment on above: Performed By: #### C MP, CRP, TSH, LIPID, CK #### [facility] [address] [place] [address] Dr. Tracy Hubbard CO2 [Moles/Vol] 27.0 mmol/L Normal 21.0-32.0 [facility] Comment on above: Performed By: #### C MP, CRP, TSH, LIPID, CK #### [facility] [address] [place] [address] Dr. Tracy Hubbard Creatinine [Mass/Vol] 1.04 mg/dL Normal 0.70-1.30 [facility] Comment on above: Performed By: #### C MP, CRP, TSH, LIPID, CK #### [facility] [address] [place] [address] Dr. Tracy Hubbard EGFR-AF CITIZEN [place] >60 Normal >=60 [facility] Comment on above: Performed By: #### C MP, CRP, TSH, LIPID, CK #### [facility] [address] [place] [address] Dr. Tracy Hubbard EGFR-NON AF CITIZEN [place] >60 Normal >=60 [facility] Comment on above: Performed By: #### C MP, CRP, TSH, LIPID, CK #### [facility] [address] [place] [address] Dr. Tracy Hubbard Globulin (S) [Mass/Vol] 3.4 g/dL Normal [facility] Comment on above: Performed By: #### C MP, CRP, TSH, LIPID, CK #### [facility] [address] [place] [address] Dr. Tracy Hubbard Glucose [Mass/Vol] 124 mg/dL Critically high 74-106 [facility] Comment on above: Performed By: #### C MP, CRP, TSH, LIPID, CK #### [facility] [address] [address] [address] Tracy Hubbard Potassium [Moles/Vol] 4.3 mmol/L Normal 3.5-5.1 [facility] Comment on above: Performed By: #### C MP, CRP, TSH, LIPID, CK #### [facility] [address] [address] [address] Tracy Hubbard Protein [Mass/Vol] 7.5 g/dL Normal 6.4-8.[address] [facility] Comment on above: Performed By: #### C MP, CRP, TSH, LIPID, CK #### [facility] [address] [address] [address] Tracy Hubbard Sodium [Moles/Vol] 138 mmol/L Normal 136-[address] [facility] Comment on above: Performed By: #### C MP, CRP, TSH, LIPID, CK #### [facility] [address] [address] [address] Tracy Hubbard Urea nitrogen [Mass/Vol] 16.0 mg/dL Normal 7.0-18.0 [facility] Comment on above: Performed By: #### C MP, CRP, TSH, LIPID, CK #### [facility] [address] [address] [address] Tracy Hubbard Urea nitrogen/Creatinine [Mass ratio] 15.4 mg/mg Normal [facility] Comment on above: Performed By: #### C MP, CRP, TSH, LIPID, CK #### [facility] [address] [address] [address] Tracy Hubbard [facility] SED RATE 9 mm/hr Normal <=20 [facility] Comment on above: Performed By: #### S EDR #### [facility] [address] [address] [address] Tracy Hubbard TSHon 07-29-2022 TSH 4.856 uIU/mL Critically high 0.358-3.74 0 [facility] Comment on above: Performed By: #### C MP, CRP, TSH, LIPID, CK #### [facility] [address] [address] [address] Tracy Hubbard XR hip RT min 2V(w/wo pelvis )*on 04-12-2022 XR hip RT min 2V(w/wo pelvis)* [facility] [employer] Other XR hip RT min 2V(w/wo pelvis)* [facility] [employer] Other XR hip RT min 2V(w/wo pelvis)* [address] [facility] [employer] Other XR hip RT min 2V(w/wo pelvis)* [place] [address] [employer] Other XR hip RT min 2V(w/wo pelvis)* XRay Report [employer] Other XR hip RT min 2V(w/wo pelvis)* Signed [employer] Other XR hip RT min 2V(w/wo pelvis)* Patient: Esme Steven MR#: [id number] [employer] Other XR hip RT min 2V(w/wo pelvis)* 6448 [employer] Other XR hip RT min 2V(w/wo pelvis)* : 1960 Acct:[id number] [employer] Other XR hip RT min 2V(w/wo pelvis)* Age/Sex: 61 / M ADM Date: 04/12/22 [employer] Other XR hip RT min 2V(w/wo pelvis)* Loc: SOXD Room: Type: [facility] [employer] Other XR hip RT min 2V(w/wo pelvis)* Attending Dr: Jonathan Samano MD [employer] Other XR hip RT min 2V(w/wo pelvis)* Copies to: Jonathan Samano MD [employer] Other XR hip RT min 2V(w/wo pelvis)* Ordering Provider: Jonathan Samano MD [employer] Other XR hip RT min 2V(w/wo pelvis)* Date of Service: 04/12/22 [employer] Other XR hip RT min 2V(w/wo pelvis)* XR/XR hip RT min 2V(w/wo pelvis)*: Right hip pain [employer] Other XR hip RT min 2V(w/wo pelvis)* RIGHT HIP - 2 views: [employer] Other XR hip RT min 2V(w/wo pelvis)* CLINICAL HISTORY: Low back pain that radiates to right hip for years. No known injury. [employer] Other XR hip RT min 2V(w/wo pelvis)* COMPARISON: None [employer] Other XR hip RT min 2V(w/wo pelvis)* FINDINGS: Moderate degenerative changes of the right hip without acute bony process. Left hip [employer] Other XR hip RT min 2V(w/wo pelvis)* prosthesis is in place. [employer] Other XR hip RT min 2V(w/wo pelvis)* XR/XR hip RT min 2V(w/wo pelvis)* [employer] Other XR hip RT min 2V(w/wo pelvis)* IMPRESSION: [employer] Other XR hip RT min 2V(w/wo pelvis)* MODERATE DEGENERATIVE CHANGES OF THE RIGHT HIP WITHOUT ACUTE BONY PROCESS.. [employer] Other XR hip RT min 2V(w/wo pelvis)* Impression dictated by: Alex Castro Jr., D.OBarbara04/12/2022 12:57 PM [employer] Other XR hip RT min 2V(w/wo pelvis)* Dictation Location: [facility]--04 [employer] Other XR hip RT min 2V(w/wo pelvis)* Transcribed By: PWS 04/12/22 [facility] [employer] Other XR hip RT min 2V(w/wo pelvis)* Dictated By: Alex Castro Jr, DO 04/12/22 [facility] [employer] Other XR hip RT min 2V(w/wo pelvis)* Signed By: [employer] Other XR hip RT min 2V(w/wo pelvis)* 04/12/22 [facility] [employer] Other XR hand RT min 3V*on XR hand RT min 3V* [facility] [employer] Other XR hand RT min 3V* [facility] [employer] Other XR hand RT min 3V* [address] [place] [address] [employer] Other XR hand RT min 3V* [place] [address] [employer] Other XR hand RT min 3V* XRay Report [employer] Other XR hand RT min 3V* Signed [employer] Other XR hand RT min 3V* Patient: Law jose antonio Steven MR#: [id number] [employer] Other XR hand RT min 3V* 7635 [employer] Other XR hand RT min 3V* : 1960 Acct:[id number] [employer] Other XR hand RT min 3V* Age/Sex: 61 / M ADM Date: 02/15/22 [employer] Other XR hand RT min 3V* Loc: SOXD Room: [facility] [employer] Other XR hand RT min 3V* Attending Dr: Orlando Nichole MD [employer] Other XR hand RT min 3V* Copies to: Chio Nichole MD [employer] Other XR hand RT min 3V* Ordering Provider: Chio Nichole MD [employer] Other XR hand RT min 3V* Date of Service: 02/15/22 [employer] Other XR hand RT min 3V* XR/XR hand RT min 3V*: Right hand pain [employer] Other XR hand RT min 3V* [address] ain film [employer] Other XR hand RT min 3V* COMPARISON:05/23/21 [employer] Other XR hand RT min 3V* HISTORY:3rd metacarp al phalangeal joint pain. 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 Mild interphalangeal degenerative changes. No acute bony findings. 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 [employer] Other XR hand RT min 3V* Impression dictated by: Matt Ferrell M.D.02/15/2022 4:53 PM [employer] Other XR hand RT min 3V* Dictation Location: [address] [address] [employer] Other XR hand RT min 3V* Transcribed By: PWS 02/15/221652 [employer] Other XR hand RT min 3V* Dictated By: Pollo Ferrell DO 02/15/221651 [employer] Other XR hand RT min 3V* Signed By: [employer] Other XR hand RT min 3V* 02/15/22 [address] [facility] [employer] Other XR hip LT min 2V(w/wo pelvis )*on 09-28-2021 XR hip LT min 2V(w/wo pelvis)* [facility] [employer] Other XR hip LT min 2V(w/wo pelvis)* [facility] [place] [employer] Other XR hip LT min 2V(w/wo pelvis)* [address] [facility] [employer] Other XR hip LT min 2V(w/wo pelvis)* [place] [address] [employer] Other XR hip LT min 2V(w/wo pelvis)* XRay Report [employer] Other XR hip LT min 2V(w/wo pelvis)* Signed [employer] Other XR hip LT min 2V(w/wo pelvis)* Patient: Esme Steven MR#: [id number] [employer] Other XR hip LT min 2V(w/wo pelvis)* 7635 [employer] Other XR hip LT min 2V(w/wo pelvis)* : 1960 Acct:[id number] [employer] Other XR hip LT min 2V(w/wo pelvis)* Age/Sex: 60 / M ADM Date: 09/28/21 [employer] Other XR hip LT min 2V(w/wo pelvis)* Loc: SOXD Room: [facility] [employer] Other XR hip LT min 2V(w/wo pelvis)* Attending Dr: Sarai Mendez II, MD [employer] Other XR hip LT min 2V(w/wo pelvis)* Copies to: Sarai Mendez MD [employer] Other XR hip LT min 2V(w/wo pelvis)* Ordering Provider: Sarai Mendez MD [employer] Other XR hip LT min 2V(w/wo pelvis)* Date of Service: 09/28/21 [employer] Other XR hip LT min 2V(w/wo pelvis)* XR/XR hip LT min 2V(w/wo pelvis)*: S/P total left hip arthroplasty [employer] Other XR hip LT min 2V(w/wo pelvis)* 2 views LEFT hip single view pelvisplain film [employer] Other XR hip LT min 2V(w/wo pelvis)* COMPARISON:08/17/21 [employer] Other XR hip LT min 2V(w/wo pelvis)* HISTORY:Status post LEFT total hip arthroplasty [employer] Other XR hip LT min 2V(w/wo pelvis)* No fracture, dislocation or focal soft tissue abnormality seen.No hardware failure or loosening [employer] Other XR hip LT min 2V(w/wo pelvis)* identified. [employer] Other XR hip LT min 2V(w/wo pelvis)* XR/XR hip LT min 2V(w/wo pelvis)* [employer] Other XR hip LT min 2V(w/wo pelvis)* IMPRESSION:Stable LEFT hip arthroplasty. [employer] Other XR hip LT min 2V(w/wo pelvis)* Impression dictated by: Matt Ferrell M.D.09/28/2021 1:11 PM [employer] Other XR hip LT min 2V(w/wo pelvis)* Dictation Location: [facility] [employer] Other XR hip LT min 2V(w/wo pelvis)* Transcribed By: PWS 09/28/21 1311 [employer] Other XR hip LT min 2V(w/wo pelvis)* Dictated By: Matt Ferrell DO 09/28/21 1310 [employer] Other XR hip LT min 2V(w/wo pelvis)* Signed By: [employer] Other XR hip LT min 2V(w/wo pelvis)* 09/28/21 1311 [employer] Other Laboratory - Hematology and Cell countson 06-02-2009 Lymphocytes/100 WBC (Bld) 14 % [facility] Neutrophils/100 WBC (Bld) 12 % 0 - 25 % [facility] No Panel Informationon 06-02 Clarity, [place] Slightly turbid Abnormal CLEAR [facility] Color, [place] Slightly bloody Abnormal YEL [facility] Macro%, SF 26 % [facility] Bureau%, SF 24 % [facility] [place] [address] /uL [facility] Reac%, SF 6 % [facility] Site, SF Unknown [facility] Slide Number SF [id number] [facility] Supernatant Clarity, [place] Unable to assay. Quantity not sufficient. Abnormal CLEAR [facility] Supernatant Color, SF Unable to assay. Q uantity not sufficient. Abnormal YEL [facility] Synovial CL% 18 % [facility] Synovial Comment Count may be inaccur ate due to Clumped on chamber Cellular disintegration [facility] Synovial Pathologist Interpretation Test Not Indicated [facility] Total Nucleated Cells, SF 200 /uL [facility] Vital Signs Date Time Vital Sign Value Performing Clinician Facility 11-19-2023 14:26-0400 Body height 167.64 cm DO [employer] Work Phone: [facility] 11-19-2023 14:26-0400 Body mass index (BMI) [Ratio] 37.8 kg/m2 DO Coleman Ball Work Phone: [facility] 11-19-2023 14:040 Body weight 106.31 kg DO Coleman Ball Work Phone: [facility] 11-19-2023 14:26-0400 Diastolic blood pressure 85 mm[Hg] DO Coleman Ball Work Phone: [facility] 11-19-2023 14:26-0400 Heart rate 80 /min DO Coleman Ball Work Phone: [facility] 11-19-2023 14:040 Respiratory rate 12 /min DO Coleman Ball Work Phone: [facility] 11-19-2023 14:26040 Systolic blood pressure 134 mm[Hg] DO Coleman Ball Work Phone: [facility] 09-07-2023 13:17-0400 Body height 167.64 cm DO Coleman Ball Work Phone: [facility] 09-07-2023 13:17-0400 Body mass index (BMI) [Ratio] 38.5 kg/m2 DO Coleman Ball Work Phone: [facility] 09-07-2023 13:17-0400 Body weight 108.12 kg DO Coleman Ball Work Phone: [facility] 09-07-2023 13:17-0400 Diastolic blood pressure 91 mm[Hg] DO Coleman Ball Work Phone: [facility] 09-07-2023 13:17-0400 Heart rate 78 /min DO Coleman Ball Work Phone: [facility] 09-07-2023 13:17-0400 Respiratory rate 12 /min DO Coleman Ball Work Phone: [facility] 09-07-2023 13:17-0400 Systolic blood pressure 136 mm[Hg] DO Coleman Ball Work Phone: [facility] 09-01-2023 11:29-0400 Body temperature 97.8 [degF] DO Coleman Ball Work Phone: [facility] 09-01-2023 11:29-0400 Diastolic blood pressure 80 mm[Hg] DO Coleman Ball Work Phone: [facility] 09-01-2023 11:29-0400 Heart rate 88 /min DO Coleman Ball Work Phone: [facility] 09-01-2023 11:29-0400 Respiratory rate 16 /min DO Coleman Ball Work Phone: [facility] 09-01-2023 11:29-0400 SaO2% (BldA) [Mass fraction] 98 % DO Coleman Ball Work Phone: [facility] 09-01-2023 11:29-0400 Systolic blood pressure 140 mm[Hg] DO Coleman Ball Work Phone: [facility] 09-01-2023 05:17-0400 Body weight 113 kg DO Coleman Ball Work Phone: [facility] 08-31-2023 13:01-0400 Body height 177.8 cm DO Coleman Ball Work Phone: [facility] 08-30-2023 22:00-0400 Diastolic blood pressure 67 mm[Hg] DO Coleman Ball Work Phone: [facility] 08-30-2023 22:00-0400 Heart rate 86 /min DO Coleman Ball Work Phone: [facility] 08-30-2023 22:00-0400 Respiratory rate 21 /min DO Coleman Ball Work Phone: [facility] 08-30-2023 22:00-0400 SaO2% (BldA) [Mass fraction] 93 % DO Coleman Ball Work Phone: [facility] 08-30-2023 22:00-0400 Systolic blood pressure 107 mm[Hg] DO Coleman Ball Work Phone: [facility] 08-30-2023 20:00-0400 Body temperature 99.8 [degF] DO Coleman Ball Work Phone: [facility] 08-30-2023 16:29-0400 Body height 177.8 cm DO Coleman Ball Work Phone: [facility] 08-30-2023 16:29-0400 Body weight 105.23 kg DO Coleman Ball Work Phone: [facility] 08-16-2023 11:36-0400 Body height 179.1 cm [facility] 08-16-2023 11:36-0400 Body mass index (BMI) [Ratio] 34.52 kg/m2 [facility] 08-16-2023 11:36-0400 Body weight 110.68 kg [facility] 08-16-2023 11:36-0400 Diastolic blood pressure 74 mm[Hg] [facility] 08-16-2023 11:36-0400 Heart rate 75 /min [facility] 08-16-2023 11:36-0400 Systolic blood pressure 124 mm[Hg] [facility] 08-02-2023 09:29-0400 Inhaled oxygen flow rate 3 L/min DO Coleman Ball Work Phone: [facility] 08-02-2023 09:29-0400 SaO2% (BldA) [Mass fraction] 95 % DO Coleman Ball Work Phone: [facility] 08-01-2023 13:58-0400 Body height 177.8 cm DO Coleman Ball Work Phone: [facility] 08-01-2023 13:58-0400 Body weight 111 kg DO Coleman Ball Work Phone: [facility] 07-27-2023 11:14-0400 Diastolic blood pressure 80 mm[Hg] Antonio Mora MD Work Phone: [facility] 07-27-2023 11:14-0400 Systolic blood pressure 110 mm[Hg] Antonio Mora MD Work Phone: [facility] 07-27-2023 11:13-0400 Body height 177.8 cm Antonio Mora MD Work Phone: [facility] 07-27-2023 11:13-0400 Body mass index (BMI) [Ratio] 35.15 kg/m2 Antonio Mora MD Work Phone: [facility] 07-27-2023 11:13-0400 Body weight 111.13 kg Antonio Mora MD Work Phone: [facility] 07-27-2023 11:13-0400 Heart rate 91 /min Antonio Mora MD Work Phone: [facility] 06-29-2023 10:00-0400 Body height 177.8 cm DO Coleman Ball Work Phone: [facility] 06-29-2023 10:00-0400 Body mass index (BMI) [Ratio] 35.7 kg/m2 DO Coleman Ball Work Phone: [facility] 06-29-2023 10:00-0400 Body weight 113.11 kg DO Coleman Ball Work Phone: [facility] 06-29-2023 10:00-0400 Diastolic blood pressure 84 mm[Hg] DO Coleman Ball Work Phone: [facility] 06-29-2023 10:00-0400 Heart rate 86 /min DO Coleman Ball Work Phone: [facility] 06-29-2023 10:00-0400 Respiratory rate 12 /min DO Coleman Ball Work Phone: [facility] 06-29-2023 10:00-0400 Systolic blood pressure 119 mm[Hg] DO Coleman Ball Work Phone: [facility] 05-07-2023 11:00-0500 Body height 177.8 cm Sukhjinder Montesinos Other [facility] 05-07-2023 11:00-0500 Body mass index (BMI) [Ratio] 34.72 kg/m2 Sukhjinder Montesinos Other [facility] [employer] Other 05-07-2023 11:00-0500 Body weight 109.76 kg DO Coleman Ball Work Phone: [facility] 05-07-2023 11:00-0500 Body weight 109.77 kg Sukhjinder Montesinos Other [facility] [employer] Other 05-02-2023 10:45-0500 Body height 177.8 cm Coleman Ball Other [facility] 05-02-2023 10:45-0500 Body mass index (BMI) [Ratio] 34.72 kg/m2 Coleman Ball Other [facility] [employer] Other 05-02-2023 10:45-0500 Body weight 109.77 kg Coleman Ball Other [facility] [employer] Other 05-02-2023 10:45-0500 Body weight 109.76 kg DO Coleman Ball Work Phone: [facility] 05-02-2023 10:45-0500 Diastolic blood pressure 85 mm[Hg] Coleman Ball Other [facility] 05-02-2023 10:45-0500 Respiratory rate 12 /min Coleman Ball Other [facility] [employer] Other 05-02-2023 10:45-0500 Systolic blood pressure 122 mm[Hg] Coleman Ball Other [facility] 04-05-2023 10:15-0500 Body height 177.8 cm Coleman Ball Other [facility] 04-05-2023 10:15-0500 Body mass index (BMI) [Ratio] 34.29 kg/m2 Coleman Ball Other [facility] [employer] Other 04-05-2023 10:15-0500 Body weight 108.41 kg Coleman Ball Other [facility] [employer] Other 04-05-2023 10:15-0500 Body weight 108.4 kg DO Coleman Ball Work Phone: [facility] 04-05-2023 10:15-0500 Diastolic blood pressure 58 mm[Hg] Coleman Ball Other [facility] 04-05-2023 10:15-0500 Respiratory rate 12 /min Coleman Ball Other [facility] [employer] Other 04-05-2023 10:15-0500 Systolic blood pressure 88 mm[Hg] Coleman Ball Other [facility] 03-15-2023 11:15-0500 Body height 177.8 cm Sukhjinder Montesinos Other [facility] 03-15-2023 11:15-0500 Body mass index (BMI) [Ratio] 34.29 kg/m2 Sukhjinder Solorioley Other [employer] Other 03-15-2023 11:15-0500 Body weight 108.41 kg Sukhjinder Solorioley Other [facility] [employer] Other 03-15-2023 11:15-0500 Body weight 108.4 kg DO Coleman Ball Work Phone: [facility] 03-05-2023 13:28-0500 Body weight 106.59 kg Heladio Pineda MD Work Phone: [facility] 03-05-2023 13:28-0500 Diastolic blood pressure 81 mm[Hg] Heladio Pineda MD Work Phone: [facility] 03-05-2023 13:28-0500 Heart rate 110 /min Heladio Pineda MD Work Phone: [facility] 03-05-2023 13:28-0500 Systolic blood pressure 124 mm[Hg] Heladio Pineda MD Work Phone: [facility] 02-13-2023 15:00-0500 Diastolic blood pressure 68 mm[Hg] DO Coleman Ball Work Phone: [facility] 02-13-2023 15:00-0500 Heart rate 75 /min DO Coleman Ball Work Phone: [facility] 02-13-2023 15:00-0500 Respiratory rate 16 /min DO Coleman Ball Work Phone: [facility] 02-13-2023 15:00-0500 SaO2% (BldA) [Mass fraction] 94 % DO Coleman Ball Work Phone: [facility] 02-13-2023 15:00-0500 Systolic blood pressure 111 mm[Hg] DO Coleman Ball Work Phone: [facility] 02-13-2023 11:45-0500 Inhaled oxygen flow rate 1 L/min DO Coleman Ball Work Phone: [facility] 02-13-2023 10:48-0500 Body temperature 99.2 [degF] DO Coleman Ball Work Phone: [facility] 02-13-2023 06:59-0500 Body height 179.07 cm DO Coleman Ball Work Phone: [facility] 02-13-2023 06:59-0500 Body mass index (BMI) [Ratio] 34 kg/m2 DO Coleman Ball Work Phone: [facility] 02-13-2023 06:59-0500 Body weight 109 kg DO Coleman Ball Work Phone: [facility] 01-24-2023 15:15-0400 Body height 177.8 cm Coleman Ball Other [employer] Other 01-24-2023 15:15-0400 Body mass index (BMI) [Ratio] 34.32 kg/m2 Coleman Ball Other [employer] Other 01-24-2023 15:15-0400 Body weight 108.5 kg Coleman Ball Other [employer] Other 01-24-2023 15:15-0400 Diastolic blood pressure 69 mm[Hg] Coleman Ball Other [employer] Other 01-24-2023 15:15-0400 Respiratory rate 12 /min Coleman Ball Other [employer] Other 01-24-2023 15:15-0400 Systolic blood pressure 107 mm[Hg] Coleman Ball Other [employer] Other 01-05-2023 10:55-0400 Body height 179.1 cm Heladio Pineda MD Work Phone: [facility] 01-05-2023 10:55-0400 Body weight 107.5 kg Heladio Pineda MD Work Phone: [facility] 01-05-2023 10:55-0400 Diastolic blood pressure 74 mm[Hg] Heladio Pineda MD Work Phone: [facility] 01-05-2023 10:55-0400 Heart rate 71 /min Heladio Pineda MD Work Phone: [facility] 01-05-2023 10:55-0400 Systolic blood pressure 143 mm[Hg] Heladio Pineda MD Work Phone: [facility] 01-02-2023 10:30-0400 Body height 177.8 cm Coleman Ball Other [employer] Other 01-02-2023 10:30-0400 Body mass index (BMI) [Ratio] 34.4 kg/m2 Coleman Ball Other [employer] Other 01-02-2023 10:30-0400 Body weight 108.77 kg Coleman Ball Other [employer] Other 01-02-2023 10:30-0400 Diastolic blood pressure 78 mm[Hg] Coleman Ball Other [employer] Other 01-02-2023 10:30-0400 Respiratory rate 12 /min Coleman Ball Other [employer] Other 01-02-2023 10:30-0400 Systolic blood pressure 120 mm[Hg] Coleman Ball Other [employer] Other 11-13-2022 15:15-0400 Body height 177.8 cm Coleman Ball Other [employer] Other 11-13-2022 15:15-0400 Body mass index (BMI) [Ratio] 33.86 kg/m2 Coleman Ball Other [employer] Other 11-13-2022 15:15-0400 Body weight 107.05 kg Coleman Ball Other [employer] Other 11-13-2022 15:15-0400 Diastolic blood pressure 75 mm[Hg] Coleman Ball Other [employer] Other 11-13-2022 15:15-0400 Respiratory rate 12 /min Cloeman Ball Other [employer] Other 11-13-2022 15:15-0400 Systolic blood pressure 112 mm[Hg] Coleman Ball Other [employer] Other 10-25-2022 14:45-0400 Body height 177.8 cm Coleman Ball Other [employer] Other 10-25-2022 14:45-0400 Body mass index (BMI) [Ratio] 35.24 kg/m2 Coleman Ball Other [employer] Other 10-25-2022 14:45-0400 Body weight 111.4 kg Coleman Ball Other [employer] Other 10-25-2022 14:45-0400 Diastolic blood pressure 76 mm[Hg] Coleman Ball Other [employer] Other 10-25-2022 14:45-0400 Respiratory rate 12 /min Coleman Ball Other [employer] Other 10-25-2022 14:45-0400 Systolic blood pressure 112 mm[Hg] Coleman Ball Other [employer] Other 10-11-2022 15:50-0400 Diastolic blood pressure 67 mm[Hg] DO Coleman Ball Work Phone: [facility] 10-11-2022 15:50-0400 Heart rate 75 /min DO Coleman Ball Work Phone: [facility] 10-11-2022 15:50-0400 Respiratory rate 20 /min DO Coleman Ball Work Phone: [facility] 10-11-2022 15:50-0400 SaO2% (BldA) [Mass fraction] 95 % DO Coleman Ball Work Phone: [facility] 10-11-2022 15:50-0400 Systolic blood pressure 110 mm[Hg] DO Coleman Ball Work Phone: [facility] 10-03-2022 08:30-0400 Body height 177.8 cm Coleman Ball Other [employer] Other 10-03-2022 08:30-0400 Body mass index (BMI) [Ratio] 36.01 kg/m2 Coleman Ball Other [employer] Other 10-03-2022 08:30-0400 Body weight 113.85 kg Coleman Ball Other [employer] Other 10-03-2022 08:30-0400 Diastolic blood pressure 86 mm[Hg] Coleman Ball Other [employer] Other 10-03-2022 08:30-0400 Respiratory rate 12 /min Coleman Ball Other [employer] Other 10-03-2022 08:30-0400 Systolic blood pressure 133 mm[Hg] Coleman Ball Other [employer] Other 08-09-2022 10:00-0400 Body height 177.8 cm Coleman Ball Other [employer] Other 08-09-2022 10:00-0400 Body mass index (BMI) [Ratio] 36.21 kg/m2 Coleman Ball Other [employer] Other 08-09-2022 10:00-0400 Body weight 114.49 kg Coleman Ball Other [employer] Other 08-09-2022 10:00-0400 Diastolic blood pressure 68 mm[Hg] Coleman Ball Other [employer] Other 08-09-2022 10:00-0400 SaO2% (BldA) [Mass fraction] 94 % Coleman Ball Other [employer] Other 08-09-2022 10:00-0400 Systolic blood pressure 121 mm[Hg] Coleman Ball Other [employer] Other 07-28-2022 10:30-0400 Body height 177.8 cm Coleman Ball Other [employer] Other 07-28-2022 10:30-0400 Body mass index (BMI) [Ratio] 36.67 kg/m2 Coleman Ball Other [employer] Other 07-28-2022 10:30-0400 Body weight 115.94 kg Coleman Ball Other [employer] Other 07-28-2022 10:30-0400 Diastolic blood pressure 76 mm[Hg] Coleman Ball Other [employer] Other 07-28-2022 10:30-0400 Respiratory rate 16 /min Coleman Ball Other [employer] Other 07-28-2022 10:30-0400 Systolic blood pressure 122 mm[Hg] Coleman Ball Other [employer] Other 05-23-2022 15:15-0500 Body height 177.8 cm Coleman Ball Other [employer] Other 05-23-2022 15:15-0500 Body mass index (BMI) [Ratio] 37.47 kg/m2 Coleman Ball Other [employer] Other 05-23-2022 15:15-0500 Body weight 118.48 kg Coleman Ball Other [employer] Other 05-23-2022 15:15-0500 Diastolic blood pressure 72 mm[Hg] Coleman Ball Other [employer] Other 05-23-2022 15:15-0500 Respiratory rate 12 /min Coleman Ball Other [employer] Other 05-23-2022 15:15-0500 Systolic blood pressure 122 mm[Hg] Coleman Ball Other [facility] [employer] Other 05-22-2022 14:01-0500 Body height 177.8 cm DO Coleman Ball Work Phone: [facility] 05-22-2022 14:01-0500 Body temperature 99 [degF] DO Coleman Ball Work Phone: [facility] 05-22-2022 14:01-0500 Body weight 116.95 kg DO Coleman Ball Work Phone: [facility] 05-22-2022 14:01-0500 Diastolic blood pressure 96 mm[Hg] DO Coleman Ball Work Phone: [facility] 05-22-2022 14:01-0500 Heart rate 77 /min DO Coleman Ball Work Phone: [facility] 05-22-2022 14:01-0500 Respiratory rate 18 /min DO Coleman Ball Work Phone: [facility] 05-22-2022 14:01-0500 SaO2% (BldA) [Mass fraction] 95 % DO Coleman Ball Work Phone: [facility] 05-22-2022 14:01-0500 Systolic blood pressure 163 mm[Hg] DO Coleman Ball Work Phone: [facility] 02-15-2022 15:00-0500 Body height 177.8 cm Chio Nichole Other [facility] [employer] Other 02-15-2022 15:00-0500 Body mass index (BMI) [Ratio] 34.15 kg/m2 Chio Nichole Other [employer] Other 02-15-2022 15:00-0500 Body weight 107.96 kg Chio Nichole Other [employer] Other 02-13-2022 11:00-0500 Body height 177.8 cm Jonathan Felter Other [employer] Other 09-28-2021 12:15-0400 Body height 177.8 cm Sarai Andrea II Other [employer] Other 06-17-2021 09:15-0500 Body height 177.8 cm Sarai Seneca II Other [employer] Other 06-17-2021 09:15-0500 Body mass index (BMI) [Ratio] 34.15 kg/m2 Sarai Andrea II Other [employer] Other 06-17-2021 09:15-0500 Body weight 107.96 kg Sarai Seneca II Other [employer] Other 02-22-2021 15:45-0500 Body height 177.8 cm Jonathan Felter Other [employer] Other 02-22-2021 15:45-0500 Body mass index (BMI) [Ratio] 34.43 kg/m2 Jonathan Felter Other [employer] Other 02-22-2021 15:45-0500 Body weight 108.86 kg Jonathan Felter Other [employer] Other 01-05-2021 10:45-0400 Body height 177.8 cm Jonathan Felter Other [employer] Other 01-05-2021 10:45-0400 Body mass index (BMI) [Ratio] 34.43 kg/m2 Jonathan Felter Other [employer] Other 01-05-2021 10:45-0400 Body weight 108.86 kg Jonathan Samano Other [facility] [employer] Other Encounters Encounter Date Encounter Type Care Provider Facility Start: 11-19-2023 End: 11-19-2023 ambulatory DO Coleman Ball Work Phone: [facility] Work Phone: Start: 11-19-2023 End: 11-19-2023 Encounter for general adult medical examination without abnormal findings DO Coleman Ball Work Phone: [facility] Start: 11-19-2023 End: 11-19-2023 Patient encounter procedure DO Coleman Brower Work Phone: [facility] Work Phone: Start: 10-18-2023 End: 10-18-2023 ambulatory [facility] Start: 10-02-2023 End: 10-02-2023 ambulatory DO Coleman Ball Work Phone: [facility] Work Phone: Start: 10-02-2023 End: 10-02-2023 Patient encounter procedure DO Coleman Brower Work Phone: [facility] Work Phone: Start: 09-19-2023 End: 09-19-2023 ambulatory SANTOS CABRERA Not Available Start: 09-09-2023 Telephone encounter Heladio alvarado MD Work Phone: Rheumatology Comment on above: Results Start: 09-07-2023 End: 09-07-2023 ambulatory DO Coleman Ball Work Phone: [facility] Work Phone: Start: 09-07-2023 End: 09-07-2023 Patient encounter procedure DO Coleman Ball Work Phone: [facility] Work Phone: Start: 09-07-2023 Non-patient / Non-visit DO Eris rigoberto Ball Work Phone: [facility] Work Phone: Start: 09-05-2023 Refill Heladio Pineda MD Work Phone: Rheumatology Comment on above: Refill Request Start: 09-05-2023 End: 09-05-2023 ambulatory COLEMAN BROWER Facility:[facility] Start: 09-05-2023 Non-patient / Non-visit DO Eris Brower Work Phone[facility] Work Phone: Start: 08-30-2023 End: 09-01-2023 Evaluation and management of inpatient DO Coleman Brower Work Phone: [facility] [place] [facility] Work Phone: Start: 08-16-2023 End: 08-16-2023 Professional / ancillary services management Ky Navarro [facility] Comment on above: Paroxysmal atrial fi brillation (Multi) Start: 08-16-2023 End: 08-16-2023 ambulatory [facility] Start: 08-02-2023 End: 08-02-2023 Admission to same day surgery center DO Coleman Brower Work Phone: [facility]-Electrodiagnostics Work Phone: Start: 08-02-2023 End: 08-02-2023 ambulatory DO Coleman Brower Work Phone: [facility] Work Phone: Start: 07-27-2023 End: 07-27-2023 Office outpatient new 60 minutes Antonio Mora MD Work Phone: [facility] Comment on above: Persistent atrial fi brillation (Multi) (Primary Dx); Multi-vessel coronary artery stenosis; Cardiomyopathy, ischemic; Mixed hyperlipidemia; 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 (Multi); Status post aorto-coronary artery bypass graft; halfway current use of anticoagulant therapy; BMI 35.0-35.9,adult Start: 07-27-2023 End: 07-27-2023 ambulatory [facility] Start: 07-09-2023 Telephone encounter Heladio alvarado MD Work Phone: Rheumatology Comment on above: Results Start: 07-05-2023 End: 07-05-2023 ambulatory COLEMAN BROWER Facility:[facility] Start: 07-05-2023 Non-patient / Non-visit DO Eris Brower Work Phone: [facility] Work Phone: Start: 07-05-2023 End: 07-05-2023 ambulatory COLEMAN BROWER Facility:[facility] Start: 06-30-2023 Telephone encounter Heladio alvarado MD Work Phone: Rheumatology Comment on above: Results; Orders Start: 06-29-2023 End: 06-29-2023 ambulatory DO Coleman Brower Work Phone: [facility] Work Phone: Start: 06-29-2023 End: 06-29-2023 Patient encounter procedure DO Coleman Brower Work Phone: [facility] Work Phone: Start: 06-28-2023 ambulatory UNKNOWN PROVIDER Facili ty:[facility] Start: 06-28-2023 End: 06-28-2023 Subsequent hospital visit by physician Bone Density 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, T38.0X5A] Start: 06-20-2023 End: 06-20-2023 Patient encounter procedure DO Coleman Brower Work Phone: [facility] Work Phone: Start: 06-14-2023 Telephone encounter Kamille Rosario RN [facility] Start: 06-12-2023 End: 06-13-2023 ambulatory CHHAYA Huber [facility] Start: 06-11-2023 Telephone encounter Ambar Figueroa LPN [facility] Comment on above: EP Surgery ( Pt Educ ation) Start: 06-06-2023 End: 06-06-2023 Patient encounter procedure DO Coleman Ball Work Phone: [facility] Work Phone: Start: 06-04-2023 End: 06-04-2023 ambulatory SARAI Marivel KRISTA [facility] Start: 06-04-2023 Non-patient / Non-visit DO Eris Brower Work Phone: [facility] Work Phone: Start: 06-01-2023 Telephone encounter Melinda Gomes [facility] Start: 05-21-2023 End: 05-21-2023 Patient encounter procedure DO Coleman Brower Work Phone: [facility]ound [facility] [place] Work Phone: Start: 05-21-2023 End: 05-21-2023 ambulatory DO Coleman Brower Work Phone: [facility] Work Phone: Start: 05-21-2023 End: 05-21-2023 Patient encounter procedure DO Coleman Brower Work Phone: [facility] Start: 05-21-2023 End: 05-21-2023 ambulatory DO Coleman Brower Work Phone: [facility] Work Phone: Start: 05-21-2023 Office outpatient vi sit 15 minutes Melinda Verduzco [facility] Start: 05-21-2023 Telephone encounter Sarai Mendez II [facility] Start: 05-18-2023 End: 05-18-2023 ambulatory Coleman Brower Other [employer] Other Start: 05-18-2023 Telephone encounter Coleman Brower [facility] Start: 05-16-2023 Office outpatient vi sit 15 minutes Sarai Mendez II [facility] Start: 05-16-2023 End: 05-16-2023 Patient encounter procedure DO Coleman Ball Work Phone: [facility] Start: 05-16-2023 End: 05-16-2023 ambulatory DO Coleman Ball Work Phone: [facility] Work Phone: Start: 05-07-2023 End: 05-07-2023 ambulatory Sukhjinder Montesinos Other [employer] Other Start: 05-07-2023 Office outpatient vi sit 25 minutes Sukhjinder Montesinos [facility] Start: 05-07-2023 End: 05-07-2023 Patient encounter procedure DO Coleman Ball Work Phone: [facility]- Start: 05-02-2023 End: 05-02-2023 ambulatory Coleman Ball Other [employer] Other Start: 05-02-2023 Office outpatient vi sit 15 minutes Coleman Ball [facility] Start: 05-02-2023 End: 05-02-2023 Patient encounter procedure DO Coleman Ball Work Phone: [facility]- Start: 04-18-2023 End: 04-19-2023 Emergency department patient visit THERESA ALFARO [facility] Start: 04-18-2023 Telephone encounter Florence Fermin RN [facility] Start: 04-12-2023 End: 04-12-2023 ambulatory Coleman Ball Other [employer] Other Start: 04-12-2023 Office outpatient vi sit 15 minutes Coleman Ball [facility] Start: 04-12-2023 Patient encounter procedure DO Coleman Ball Work Phone: [facility]- Start: 04-11-2023 End: 04-11-2023 ambulatory Sarai Mendez II Other [employer] Other Start: 04-11-2023 Postop follow up vis it related to original px Sarai Seneca II [facility] Start: 04-06-2023 End: 04-06-2023 ambulatory Coleman Brower Other [employer] Other Start: 04-06-2023 Telephone encounter Coleman Brower [facility] Start: 04-05-2023 End: 04-05-2023 ambulatory Coleman Brower Other [employer] Other Start: 04-05-2023 Office outpatient vi sit 15 minutes Coleman [facility] Start: 04-05-2023 End: 04-05-2023 Patient encounter procedure DO Coleman [facility] Work Phone: [facility] Work Phone: Start: 03-29-2023 Postop follow up vis it related to original px Sarai العراقيle II [facility] Start: 03-29-2023 End: 03-29-2023 Patient encounter procedure DO Coleman Brower Work Phone: [facility] Start: 03-29-2023 End: 03-29-2023 ambulatory DO Coleman Brower Work Phone: [facility] Work Phone: Start: 03-15-2023 End: 03-15-2023 ambulatory Sukhjinder Montesinos Other [employer] Other Start: 03-15-2023 Office outpatient vi sit 25 minutes Sukhjinder Montesinos [facility] Start: 03-15-2023 Postop follow up vis it related to original px Melinda Luba [facility] Start: 03-15-2023 End: 03-15-2023 Patient encounter procedure DO Coleman Ball Work Phone: [facility] Work Phone: Start: 03-12-2023 End: 03-12-2023 ambulatory Sarai Mendez II Other [employer] Other Start: 03-12-2023 Telephone encounter Sarai Mendez II [facility] Start: 03-07-2023 End: 03-07-2023 ambulatory Coleman Brower Other [employer] Other Start: 03-07-2023 Postop follow up vis it related to original px Sarai Mendez II [facility] Start: 03-07-2023 Telephone encounter Coleman ESTRADA [facility] Comment on above: Results Start: 03-05-2023 End: 03-05-2023 ambulatory COLEMAN BROWER [employer] Other Start: 03-05-2023 End: 03-05-2023 Patient encounter procedure Heladio Pineda MD Work Phone: Rheumatology Comment on above: PMR (polymyalgia rhe umatica) (HCC) (Primary Dx); Elevated sed rate; Elevated C-reactive protein (CRP); Idiopathic chronic gout of multiple sites without tophus; Pseudogout involving multiple joints; Secondary osteoarthritis of multiple sites; Rotator cuff arthropathy of left shoulder; Pain in right hip; 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; CHENCHO positive; Chronic pain of both knees; Bilateral hand pain Start: 03-05-2023 Telephone encounter Coleman Aguillon [facility] Start: 03-02-2023 Refill Heladio Pineda MD Work Phone: Rheumatology Comment on above: Refill Request Start: 02-28-2023 End: 02-28-2023 ambulatory Melinda Verduzco Other [employer] Other Start: 02-28-2023 Postop follow up vis it related to original px Melinda Verduzco [facility] Start: 02-16-2023 End: 02-16-2023 ambulatory Sarai Mendez II Other [employer] Other Start: 02-16-2023 Telephone encounter Sarai Mendez II [facility] Start: 02-13-2023 Telephone encounter Coleman Aguillon [facility] Start: 02-13-2023 End: 02-13-2023 Admission to same day surgery center DO Coleman Ball Work Phone: [facility] [place] Start: 02-13-2023 End: 02-13-2023 ambulatory DO Coleman Ball Work Phone: [facility] Work Phone: Start: 02-12-2023 End: 02-12-2023 ambulatory Sukhjinder Montesinos Other [employer] Other Start: 02-12-2023 Telephone encounter Sukhjinder Montesinos [facility] Start: 02-06-2023 End: 02-06-2023 ambulatory Sarai Andrea II Other [employer] Other Start: 02-06-2023 Telephone encounter Sarai Seneca II [facility] Start: 02-02-2023 (Prolonged) Prolonge d Services Sarai Andrea II [facility] Start: 02-02-2023 End: 02-02-2023 ambulatory Sarai Seneca II Other [employer] Other Start: 01-31-2023 End: 01-31-2023 ambulatory Sarai Seneca II Other [employer] Other Start: 01-31-2023 Patient encounter procedure Sarai Andrea II [facility] Start: 01-26-2023 End: 01-26-2023 Patient encounter procedure DO Coleman Ball Work Phone: [facility] Work Phone: Start: 01-26-2023 End: 01-26-2023 ambulatory DO Coleman Ball Work Phone: [facility] Work Phone: Start: 01-24-2023 End: 01-24-2023 ambulatory Coleman Ball Other [employer] Other Start: 01-24-2023 Office outpatient vi sit 15 minutes Coleman Brower [facility] Start: 01-10-2023 Telephone encounter Heladio alvarado MD Work Phone: Rheumatology Comment on above: Results Start: 01-05-2023 End: 01-05-2023 ambulatory COLEMAN BROWER Facility:[facility] Start: 01-05-2023 End: 01-05-2023 Patient encounter procedure Heladio Pineda MD Work Phone: Rheumatology Comment on above: PMR (polymyalgia rhe umatica) (HCC) (Primary Dx); Elevated LFTs; Anemia of chronic disease; Elevated sed rate; Elevated C-reactive protein (CRP); Vitamin D deficiency; Vitamin B12 deficiency; Hyperuricemia; Screening-pulmonary TB; HyperCKemia; Elevated aldolase level; Steroid-induced osteoporosis; Pseudogout involving multiple joints; Idiopathic chronic gout of multiple sites without tophus; Secondary osteoarthritis of multiple sites; Bilateral hand pain; Rotator cuff arthropathy of left shoulder; Pain in right hip; halfway current use of 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; CHENCHO positive; Bilateral hand swelling Start: 01-02-2023 End: 01-02-2023 ambulatory Coleman Brower Other [employer] Other Start: 01-02-2023 Encounter for other preprocedural examination Coleman Brower [facility] Start: 01-02-2023 Office outpatient vi sit 25 minutes Coleman Brower [facility] Start: 12-26-2022 End: 12-26-2022 ambulatory Melinda Verduzco Other [employer] Other Start: 12-26-2022 Office outpatient vi sit 15 minutes Melinda Verduzco [facility] Start: 12-20-2022 End: 12-20-2022 ambulatory Coleman Brower Other [employer] Other Start: 12-20-2022 Telephone encounter Coleman Brower [facility] Start: 12-04-2022 End: 12-04-2022 ambulatory Coleman Brower Other [employer] Other Start: 12-04-2022 Telephone encounter Coleman Brower [facility] Start: 11-23-2022 End: 11-23-2022 ambulatory Coleman Brower Other [employer] Other Start: 11-23-2022 Telephone encounter Coleman ESTRADA [facility] Start: 11-22-2022 End: 11-22-2022 ambulatory Sarai Mendez II Other [employer] Other Start: 11-22-2022 Telephone encounter Sarai Mendez II [facility] Start: 11-21-2022 End: 11-21-2022 ambulatory Melinda Verduzco Other [employer] Other Start: 11-21-2022 Office outpatient vi sit 15 minutes Melinda Verduzco [facility] Start: 11-13-2022 End: 11-13-2022 Patient encounter procedure DO Coleman Ball Work Phone: [facility] [place] Work Phone: Start: 11-13-2022 End: 11-13-2022 ambulatory DO Coleman Ball Work Phone: [facility] Work Phone: Start: 11-06-2022 End: 11-06-2022 ambulatory Coleman Brower Other [employer] Other Start: 11-06-2022 Telephone encounter Coleman Brower [facility] Start: 11-01-2022 (Procedure) Short Jonathan Samano [facility] Start: 11-01-2022 End: 11-01-2022 ambulatory Jonathan Samano Other [employer] Other Start: 10-26-2022 End: 10-26-2022 Patient encounter procedure DO Coleman Ball Work Phone: [facility] [place] [facility] Start: 10-26-2022 End: 10-26-2022 ambulatory DO Coleman Ball Work Phone: [facility] Work Phone: Start: 10-25-2022 End: 10-25-2022 ambulatory Coleman Ball Other [employer] Other Start: 10-25-2022 Office outpatient vi sit 15 minutes Coleman Ball [facility] Start: 10-11-2022 End: 10-11-2022 Emergency department patient visit DO Coleman Ball Work Phone: [facility] Work Phone: Start: 10-05-2022 End: 10-05-2022 ambulatory Sarai Mendez II Other [employer] Other Start: 10-05-2022 Telephone encounter Sarai Mendez II [facility] Start: 10-04-2022 End: 10-04-2022 ambulatory Coleman Ball Other [employer] Other Start: 10-04-2022 Telephone encounter Coleman Brower [facility] Start: 10-03-2022 End: 10-03-2022 ambulatory Coleman Ball Other [employer] Other Start: 10-03-2022 Office outpatient vi sit 15 minutes Coleman Ball [facility] Start: 10-02-2022 Telephone encounter Jonathan ESTRADA [facility] Start: 10-02-2022 End: 10-02-2022 Patient encounter procedure DO Coleman Ball Work Phone: [facility] [address] Work Phone: Start: 10-02-2022 End: 10-02-2022 ambulatory DO Coleman Ball Work Phone: [facility] Work Phone: Start: 09-27-2022 End: 09-27-2022 ambulatory Coleman Ball Other [employer] Other Start: 09-27-2022 Telephone encounter Coleman [facility] Start: 08-29-[address] COLEMAN BROWER Facili ty:[facility]1 Start: 08-09-2022 End: 08-09-2022 ambulatory Coleman Brower Other [employer] Other Start: 08-09-2022 Office outpatient vi sit 15 minutes Coleman Brower [facility] Start: 08-07-2022 End: 08-07-2022 ambulatory Jonathan Samano Other [employer] Other Start: 08-07-2022 Office outpatient vi sit 15 minutes Jonathan SWAIN [facility] [place] Start: 08-02-2022 End: 08-02-2022 ambulatory DO Coleman Inocente Work Phone: [facility] Work Phone: Start: 08-02-2022 End: 08-02-2022 Patient encounter procedure DO Coleman Brower Work Phone: [facility] [place] [facility] Start: 08-01-2022 End: 08-01-2022 ambulatory Coleman Brower Other [employer] Other Start: 08-01-2022 Telephone encounter Coleman [facility] Start: 07-31-2022 (Procedure) Binta Samano [facility] Start: 07-31-2022 End: 08-01-[address] COLEMAN BROWER [employer] Other Start: 07-31-2022 Telephone encounter Jonathan Aguillon [facility] [place] Start: 07-29-2022 End: 07-30-[address] COLEMAN BROWER Facility:[facility] Start: 07-28-2022 End: 07-28-2022 ambulatory Coleman Brower Other [employer] Other Start: 07-28-2022 Office outpatient vi sit 25 minutes Coleman Ball [facility] Start: 07-04-2022 End: 07-04-2022 ambulatory Jonathan Shrestha Other [employer] Other Start: 07-04-2022 Office outpatient vi sit 25 minutes Jonathan Shrestha [facility] [place] [facility] Start: 07-03-2022 End: 07-03-2022 ambulatory Melinda Chasearney Other [employer] Other Start: 07-03-2022 Telephone encounter Melinda Verduzco [facility] [place] [facility] Start: 06-29-2022 End: 06-29-2022 ambulatory DO Coleman Inocente Work Phone: [facility] Work Phone: Start: 06-29-2022 End: 06-29-2022 Patient encounter procedure DO Coleman Inocente Work Phone: [facility] [place] Work Phone: Start: 06-09-2022 End: 06-09-2022 ambulatory Coleman Brower Other [employer] Other Start: 06-09-2022 Telephone encounter Coleman Inocente [facility] Start: 06-05-2022 End: 06-05-2022 ambulatory Jonathan Samano Other [employer] Other Start: 06-05-2022 Office outpatient vi sit 15 minutes Jonathan Samano [facility] [place] Start: 05-29-2022 End: 05-29-2022 ambulatory Coleman Ball Other [employer] Other Start: 05-29-2022 Office outpatient vi sit 10 minutes Coleman Ball [facility] Start: 05-23-2022 End: 05-23-2022 ambulatory Coleman Ball Other [employer] Other Start: 05-23-2022 Office outpatient vi sit 15 minutes Coleman Ball [facility] Start: 05-23-2022 Telephone encounter Coleman Brower [facility] Start: 05-22-2022 End: 05-22-2022 Emergency department patient visit DO Coleman Brower Work Phone: [facility] Work Phone: Start: 05-01-2022 (Procedure) Binta Samano [facility] Start: 05-01-2022 End: 05-01-2022 ambulatory Jonathan Vieiraer Other [employer] Other Start: 04-24-2022 (Procedure) Binta Samano [facility] Start: 04-24-2022 End: 04-24-2022 ambulatory Jonathan Vieiraer Other [employer] Other Start: 04-12-2022 Office outpatient vi sit 25 minutes Jonathan Vieiraer [facility] [place] Start: 04-12-2022 End: 04-12-2022 ambulatory DO Coleman Brower Work Phone: [facility] Work Phone: Start: 04-12-2022 End: 04-12-2022 Patient encounter procedure DO Coleman Brower Work Phone: [facility] [place] [facility] Start: 03-20-2022 (Procedure) Binta Samano [facility] Start: 03-20-2022 End: 03-20-2022 ambulatory Jonathan Vieiraer Other [employer] Other Start: 03-08-2022 End: 03-08-2022 ambulatory Jonathan Vieiraer Other [employer] Other Start: 03-08-2022 Office outpatient vi sit 25 minutes Jonathan Vieiraer [facility] [place] Start: 02-22-2022 (Procedure) Binta Samano [facility] Start: 02-22-2022 End: 02-22-2022 ambulatory Jonathan Vieiraer Other [employer] Other Start: 02-15-2022 Office outpatient ne w 45 minutes Chio Nichole [facility] Start: 02-15-2022 End: 02-15-2022 ambulatory DO Coleman Brower Work Phone: [facility] Work Phone: Start: 02-15-2022 End: 02-15-2022 Patient encounter procedure DO Coleman Brower Work Phone: [facility] [place] [facility] Start: 02-13-2022 End: 02-13-2022 ambulatory Jonathan Samano Other [employer] Other Start: 02-13-2022 Office outpatient vi sit 25 minutes Jonathan Samano [facility] [place] Start: 12-26-2021 End: 12-26-2021 Patient encounter procedure DO Coleman Brower Work Phone: [facility] [place] Start: 11-30-2021 End: 12-21-[address] COLEMAN BROWER Facility: Start: 11-28-2021 Pre-procedure evalua tion check Jonathan Samano Other [employer] Other Start: 09-28-2021 End: 09-28-2021 ambulatory Sarai Andrea II Other [employer] Other Start: 09-28-2021 Postop follow up vis it related to original px Sarai Seneca II [facility] Start: 09-28-2021 End: 09-28-2021 Patient encounter procedure DO Coleman Brower Work Phone: [facility] [place] [facility] Start: 09-12-2021 End: 09-12-2021 ambulatory Melinda Verduzco Other [employer] Other Start: 09-12-2021 Office outpatient vi sit 15 minutes Melinda Verduzco [facility] Start: 08-17-2021 (Post-Op) Post-Op Sarai Seneca II [facility] [place] [facility] Start: 08-17-2021 End: 08-17-2021 ambulatory Sarai Andrea II Other [employer] Other Start: 07-20-2021 (Post-Op) Post-Op Sarai Andrea II [facility] Start: 07-20-2021 End: 07-20-2021 ambulatory Sarai Seneca II Other [employer] Other Start: 06-24-2021 (Prolonged) Prolonge d Services Sarai Seneca II [facility] [place] [facility] Start: 06-24-2021 End: 06-24-2021 ambulatory Sarai Seneca II Other [employer] Other Start: 06-17-2021 End: 06-17-2021 ambulatory Sarai Seneca II Other [employer] Other Start: 06-17-2021 Office outpatient vi sit 25 minutes Sarai Seneca II [facility] Start: 05-27-2021 Adult health examination Joselyn Samano Other [employer] Other Start: 03-25-2021 End: 03-25-2021 ambulatory Sarai Seneca II Other [employer] Other Start: 03-25-2021 Telephone encounter Sarai Seneca II [facility] Start: 03-24-2021 End: 03-24-2021 ambulatory Jonathan Samano Other [employer] Other Start: 03-24-2021 Telephone encounter Jonathan Samano [facility] Start: 02-22-2021 End: 02-22-2021 ambulatory Jonathan Samano Other [employer] Other Start: 02-22-2021 Office outpatient vi sit 25 minutes Jonathan Samano [facility] [place] Start: 02-15-2021 (Procedure) Short Jonathan Samano [facility] Start: 02-15-2021 End: 02-15-2021 ambulatory Jonathan Samano Other [facility] [employer] Other Start: 01-20-2021 Telephone encounter Jonathan Darieldread Agu[facility] Start: 01-05-2021 Office outpatient vi sit 15 minutes Jonathan Samano [facility] [place] Start: 06-01-2009 ambulatory Genie rosas MD Work Phone: Radiology Start: 06-01-2009 End: 06-01-2009 Patient encounter procedure Genie Hdez MD Work Phone: [facility] Procedures Date Procedure Procedure Detail Performing Clinician Start: 08-30-2023 CT angiography of ne ck vessels DO [employer] Work Phone: Start: 08-30-2023 Computed tomography of abdomen and pelvis with contrast DO [employer] Phone: Start: 08-30-2023 CT angiography of head DO [employer] Work Phone: Start: 08-30-2023 CT of head without contrast DO [employer] Phone: Start: 08-30-2023 Plain chest X-ray DO Be [email or web address] Work Phone: Start: 08-30-2023 Bacterial ID (NA Mul tiplex Assay) DO [employer] Work Phone: Start: 08-30-2023 Blood culture for bacteria, including anaerobic screen DO [employer] Phone: Start: 08-30-2023 Respiratory Panel (PCR) DO [employer] Work Phone: Start: 08-30-2023 SARS-CoV-2, Influenz a & RSV (PCR) DO [employer] Phone: Start: 08-16-2023 ECG 12-LEAD MOURHAF TR ABOULSSI Start: 08-16-2023 Ecg routine ecg w/le ast 12 lds w/i&r Antonio Mora MD Work Phone: Start: 07-27-2023 History of coronary artery bypass grafting Status post aorto-coronary artery bypass graft Antonio Mora MD Work Phone: Start: 07-27-2023 ECG 12-LEAD ANTONIO LOO Start: 07-27-2023 Ecg routine ecg w/le ast 12 lds w/i&r Antonio Mora MD Work Phone: Start: 06-28-2023 End: 06-28-2023 Dxa bone density study 1/> sites axial skel Heladio Pineda MD Work Phone: Start: 06-04-2023 Follow-up visit Follow-up SARAI VELASCO Start: 05-21-2023 Duplex scan of lower limb veins DO Coleman Ball Work Phone: Start: 05-21-2023 X-ray of left knee DO B enjamin Ball Work Phone: Start: 05-16-2023 Plain X-ray 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 DO Coleman Ball Work Phone: Start: 03-29-2023 Plain X-ray 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 DO Coleman Ball Work Phone: Start: 02-13-2023 Plain X-ray 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 DO Coleman Ball Work Phone: Start: 02-13-2023 Total replacement 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 joint DO Coleman Ball Work Phone: Start: 02-13-2023 Plain X-ray 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 DO Coleman Ball Work Phone: Start: 01-26-2023 Antibody screen Sarai Mendez II Comment on above: Order Comment: Reaso n for Exam Primary osteoarthritis 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;Other detention (current Result Comment: PERF ORMED BY: [place] [id number] [place] [address] PATHOLOGIST CANDY COUNTER CLERK ALAYNA CAPONE M.D. Start: 10-26-2022 Plain X-ray 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 DO [employer] Work Phone: Start: 10-11-2022 CT of head without contrast DO [employer] Work Phone: Start: 08-02-2022 Plain X-ray of right shoulder DO [employer] Work Phone: Start: 08-02-2022 Plain X-ray of left hip DO [employer] Work Phone: Start: 07-29-[address] TABARES [place] [employer] Comment on above: Performed By: #### P [facility] #### [facility] [address] [place] [address] Dr. Tracy Hubbard Start: 06-29-2022 MRI of left shoulder DO [employer] Work Phone: Start: 05-22-2022 Plain X-ray of left elbow DO [employer] Work Phone: Start: 05-22-2022 Plain X-ray of left shoulder DO [employer] Work Phone: Start: 04-12-2022 Plain X-ray 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 DO [employer] Work Phone: Start: 02-15-2022 Plain X-ray of right hand DO [employer] Work Phone: Start: 12-26-2021 XR pre/post mri xray DO [employer] Work Phone: Start: 12-26-2021 MRI of cervical spin e without contrast DO [employer] Work Phone: Start: 09-28-2021 Plain X-ray of left hip DO [employer] Work Phone: Start: 12-11-2014 Screening for malign ant neoplasm of colon Jonathan Darieldread Other Start: 12-10-2014 Screening for malign ant neoplasm of prostate Jonathan Samano Other Start: 01-02-2013 Preoperative cardiovascular examination Jonathan Vieiradread Other Start: 06-01-2009 CELL CNT+DIFF SYN [place] Mo tony Hdez MD Work Phone: Depression screening Jonathan Samano Other History of operative procedure on knee Jonathan Samano Other Screening for malign ant neoplasm of prostate Jonathan Samano Other Plan of Treatment Date Care Activity Detail Author Start: 05-14-2030 DTaP,Tdap and Td Vac cines (2 - Tdap) DTaP,Tdap and Td Vaccines (2 - Tdap) [facility] Start: 05-14-2030 DTaP/Tdap/Td Vaccine s (2 - Tdap) DTaP/Tdap/Td Vaccines (2 - Tdap) [facility] Start: 05-14-2030 Urine microalbumin profile DTaP,Tdap,Td Vaccine (2 - Tdap) [facility] Start: 07-30-2027 Prostate Cancer Scre ening Discussion Prostate Cancer Screening Discussion [facility] Start: 07-30-2027 Prostate specific an tigen measurement Prostate Cancer Screening Discussion [facility] Start: 06-11-2026 Diabetes Screening Diabetes Screenin g [facility] Start: 01-05-2026 Diabetes Screening Diabetes Screenin g [facility] Start: 06-27-2025 Screening for osteoporosis Bone Density Scan [facility] Start: 06-04-2024 Adult BMI Screening Adult BMI Screen ing [facility] Start: 06-04-2024 Tobacco Screening Tobacco Screening [facility] Start: 04-18-2024 Tobacco Screening Tobacco Screening [facility] Start: 03-17-2024 End: 03-17-2024 Patient encounter procedure 03/17/2024 9:00 AM EST Office Visit Rheumatology [address] [place] [address] Heladio Pineda MD [address] [facility] [place] [address] for PMR/osteoarthritis/gou t fu OV 6months Rheumatology Comment on above: for PMR/osteoarthrit is/gout fu OV 6months Start: 01-03-2024 Adult BMI Screening Adult BMI Screen ing [facility] Start: 12-09-2023 Influenza vaccination Influenz a Vaccine (Season Ended) [facility] Start: 10-18-2023 End: 10-18-2023 Patient encounter procedure 10/18/2023 2:40 PM EDT Office Visit [facility] [address] [place] [address] Antonio Mora MD [address] [place] [address] [facility] Start: 10-08-2023 End: 07-08-2024 25-hydroxyvitamin D3 [Mass/volume] in Serum or Plasma VITAMIN D 25 HYDROXY Lab Routine Vitamin D deficiency Expected: 10/08/2023 (Approximate), Expires: 07/08/2024 [facility] Work Phone: Comment on above: Expected: 10/08/2023 (Approximate), Expires: 07/08/2024 Start: 10-08-2023 End: 01-07-2024 Urate [Mass/volume] in Serum or Plasma URIC ACID Lab Routine Hyperuricemia Idiopathic chronic gout of multiple sites without tophus Expected: 10/08/2023 (Approximate), Expires: 01/07/2024 [facility] Work Phone: Comment on above: Expected: 10/08/2023 (Approximate), Expires: 01/07/2024 Start: 10-03-2023 End: 10-03-2023 Patient encounter procedure 10/03/2023 9:30 AM EDT Office Visit [facility] [address] [place] [address] Travis Lucas MD [address] [place] [address] [facility] Start: 09-01-2023 [facility] Start: 08-30-2023 [facility] Start: 08-30-2023 Respiratory pathogen s DNA and RNA panel - Nasopharynx by ROSIE with non-probe detection [facility] Start: 08-30-2023 Hospital admission [facility] Start: 08-30-2023 [facility] Start: 08-30-2023 Bacteria identified in Blood by Culture Blood Culture [facility] Start: 08-30-2023 Blood culture for bacteria, including anaerobic screen Blood Culture [facility] Start: 08-16-2023 End: 08-16-2023 Professional / ancillary services management 08/16/2023 10:00 AM EDT Ancillary Procedure [facility] [address] [place] [address] [facility] Start: 08-10-2023 End: 07-26-2024 ECG 12 Lead ECG 12 Lead ECG Routine 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 (Multi) Expected: 08/10/2023 (Approximate), Expires: 07/26/2024 [facility] Work Phone: Comment on above: Expected: 08/10/2023 (Approximate), Expires: 07/26/2024 Start: 08-08-2023 End: 07-08-2024 C reactive protein [Mass/volume] in Serum or Plasma C-REACTIVE PROTEIN (CRP) Lab Routine Elevated sed rate Elevated C-reactive protein (CRP) Expected: 08/08/2023 (Approximate), Expires: 07/08/2024 [facility] Work Phone: Comment on above: Expected: 08/08/2023 (Approximate), Expires: 07/08/2024 Start: 08-08-2023 End: 07-08-2024 Erythrocyte sedimentation rate SED RATE WESTERGREN Lab Routine Elevated sed rate Elevated C-reactive protein (CRP) Expected: 08/08/2023 (Approximate), Expires: 07/08/2024 [facility] Work Phone: Comment on above: Expected: 08/08/2023 (Approximate), Expires: 07/08/2024 Start: 08-02-2023 [facility] Start: 07-27-2023 End: 07-26-2025 Cardioversion External Cardioversion External Cardiac Services Routine 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 (Multi) halfway current use of anticoagulant therapy Expected: 07/27/2023 (Approximate), Expires: 07/26/2025 [facility] Service Area Work Phone: Comment on above: Expected: 07/27/2023 (Approximate), Expires: 07/26/2025 Start: 06-14-2023 End: 06-14-2023 Patient encounter procedure 06/14/2023 1:00 PM EST Appointment [facility] [address] [place] [address] Chhaya Whatley MD [address] [place] [address] [facility] Start: 06-04-2023 End: 06-04-2023 Patient encounter procedure 06/04/2023 2:15 PM EST Office Visit [facility] [address] [place] [id number] Sarai Velasco MD [address] [place] [address] [facility] Start: 05-21-2023 Duplex scan of lower limb veins US venous duplex [facility] Start: 04-12-2023 End: 01-11-2024 25-hydroxyvitamin D3 [Mass/volume] in Serum or Plasma VITAMIN D 25 HYDROXY Lab Routine Vitamin D deficiency Expected: 04/12/2023 (Approximate), Expires: 01/11/2024 [facility] Work Phone: Comment on above: Expected: 04/12/2023 (Approximate), Expires: 01/11/2024 Start: 04-12-2023 End: 01-11-2024 Cobalamin (Vitamin B12) [Mass/volume] in Serum or Plasma VITAMIN B12 BLOOD Lab Routine Vitamin B12 deficiency Expected: 04/12/2023 (Approximate), Expires: 01/11/2024 [facility] Work Phone: Comment on above: Expected: 04/12/2023 (Approximate), Expires: 01/11/2024 Start: 04-09-2023 Behavioral Health Screening Behavioral Health Screening [facility] Start: 04-09-2023 Depression Assessment Depression Ass essment [facility] Start: 04-06-2023 End: 03-07-2024 C reactive protein [Mass/volume] in Serum or Plasma C-REACTIVE PROTEIN (CRP) Lab Routine PMR (polymyalgia rheumatica) (HCC) Elevated sed rate Elevated C-reactive protein (CRP) Expected: 04/06/2023 (Approximate), Expires: 03/07/2024 [facility] Work Phone: Comment on above: Expected: 04/06/2023 (Approximate), Expires: 03/07/2024 Start: 04-06-2023 End: 03-07-2024 Erythrocyte sedimentation rate SED RATE WESTERGREN Lab Routine PMR (polymyalgia rheumatica) (HCC) Elevated sed rate Elevated C-reactive protein (CRP) Expected: 04/06/2023 (Approximate), Expires: 03/07/2024 [facility] Work Phone: Comment on above: Expected: 04/06/2023 (Approximate), Expires: 03/07/2024 Start: 02-13-2023 End: 02-13-2023 [facility] Start: 02-13-2023 Physical therapy procedure [facility] Start: 02-10-2023 End: 01-11-2024 C reactive protein [Mass/volume] in Serum or Plasma C-REACTIVE PROTEIN (CRP) Lab Routine Elevated sed rate Elevated C-reactive protein (CRP) Expected: 02/10/2023 (Approximate), Expires: 01/11/2024 [facility] Work Phone: Comment on above: Expected: 02/10/2023 (Approximate), Expires: 01/11/2024 Start: 02-10-2023 End: 01-11-2024 Erythrocyte sedimentation rate SED RATE WESTERGREN Lab Routine Elevated sed rate Elevated C-reactive protein (CRP) Expected: 02/10/2023 (Approximate), Expires: 01/11/2024 [facility] Work Phone: Comment on above: Expected: 02/10/2023 (Approximate), Expires: 01/11/2024 Start: 01-29-2023 [facility] Start: 01-26-2023 [facility] Start: 01-05-2023 End: 01-06-2024 25-hydroxyvitamin D3 [Mass/volume] in Serum or Plasma [facility] Work Phone: Comment on above: Expected: 01/05/2023 (Approximate), Expires: 01/06/2024 Start: 01-05-2023 End: 03-07-2023 Aldolase [Enzymatic activity/volume] in Serum or Plasma [facility] Work Phone: Comment on above: Expected: 01/05/2023 (Approximate), Expires: 03/07/2023 Start: 01-05-2023 End: 01-06-2024 CHENCHO BY IFA WITH REFLEX [facility] Work Phone: Comment on above: Expected: 01/05/2023 (Approximate), Expires: 01/06/2024 Start: 01-05-2023 End: 01-06-2024 BLOOD TB SCREEN [facility] Work Phone: Comment on above: Expected: 01/05/2023 (Approximate), Expires: 01/06/2024 Start: 01-05-2023 End: 01-06-2024 Chronic hepatitis differentiation between hepatitis B and C virus panel - Serum or Plasma [facility] Work Phone: Comment on above: Expected: 01/05/2023 (Approximate), Expires: 01/06/2024 Start: 01-05-2023 End: 01-06-2024 Cyclic citrullinated peptide IgG Ab [Units/volume] in Serum or Plasma [facility] Work Phone: Comment on above: Expected: 01/05/2023 (Approximate), Expires: 01/06/2024 Start: 12-08-2022 Covid-19 Vaccine () Covid-19 Vaccine () [facility] Start: 12-08-2022 Influenza vaccination C [facility] Start: 10-02-2022 Hemolytic complement CH50 level [facility] Start: 10-02-2022 [facility] Start: 08-02-2022 Plain X-ray of right shoulder XR shoulder RT min 2V* [facility] Start: 08-02-2022 Plain X-ray of left hip XR hip LT min 2V(w/wo pelvis)* [facility] Start: 04-09-2022 Depression Assessment Depression Ass essment [facility] Start: 06-06-2021 Covid-19 Vaccine (4 - Pfizer series) Covid-19 Vaccine (4 - Pfizer series) [facility] Start: 12-08-2020 Influenza vaccination INFLUENZ A (Season Ended) [facility] Start: 2019 RSV patient s and/or patients aged 60+ years (1 - 1-dose 60+ series) RSV patients and/or patients aged 60+ years (1 - 1-dose 60+ series) [facility] Start: 2019 RSV Vaccine (1 - 1-d ose 60+ series) RSV Vaccine (1 - 1-dose 60+ series) [facility] Start: 10-29-2016 DIABETES SCREEN DIABETES SCREEN [facility] Start: 12-16-2014 PROSTATE CANCER SCRE ENING DISCUSSION PROSTATE CANCER SCREENING DISCUSSION [facility] Start: 12-16-2009 Administration of varicella zoster vaccine Zoster (Shingles) Vaccine (1 of 2) [employer] [facility] Start: 12-16-2009 Screening for malign ant neoplasm of colon [facility] Start: 12-16-2009 SHINGRIX VACCINE (1 of 2) TORRES GRIX VACCINE (1 of 2) [facility] Start: 12-16-2009 Zoster Vaccines (1 of 2) Zoste r Vaccines (1 of 2) [facility] Start: 12-16-2004 Cologuard (FIT-DNA) Cologuard (FIT-D NA) [facility] Start: 12-16-2004 Colonoscopy Colonoscopy [facility] Start: 12-16-2004 Colorectal Cancer Screening Colorectal Cancer Screening [facility] Start: 12-16-[address] COLONOGRAPHY [facility] Start: 12-16-2004 Fecal Occult Blood Fecal Occult Bloo d [facility] Start: 12-16-2004 Screening for malign ant neoplasm of colon [facility] Start: 12-16-2004 SIGMOIDOSCOPY SIGMOIDOSCOPY [facility] Start: 12-16-1994 Lipid 1996 panel - S ursula or Plasma Lipid Screening [facility] Start: 12-16-1994 Lipid panel Lipid Screening [place] Start: 12-16-1994 LIPID SCREEN LIPID SCREEN [facility] Start: 12-16-1978 Urine microalbumin profile [facility] Start: 12-16-1977 Adult BMI Follow Up Plan Adult BMI Follow Up Plan [facility] Start: 12-16-1977 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 Annual PCP Team Chronic Disease Visit [facility] Start: 12-16-1977 Diabetes mellitus screening Diabetes Screening [facility] Start: 12-16-1977 Hepatitis B surface antibody level LDL Cholesterol [facility] Start: 12-16-1977 Hepatitis C screening Hepatitis C Sc reening [facility] Start: 12-16-1977 HIV SCREENING HIV SCREENING [facility] Start: 12-16-1977 HIV screening HIV Screening [facility] Start: 1971 Adult depression screening assessment DEPRESSION SCREENING [facility] Start: 1971 COVID-19 VACCINE (1) COVID-19 VACCIN E (1) [facility] Start: 12-16-1965 Pneumococcal Vaccine : Pediatrics (0 to 5 Years) and At-Risk Patients (6 to 64 Years) (1 of 2 - PCV) Pneumococcal Vaccine: Pediatrics (0 to 5 Years) and At-Risk Patients (6 to 64 Years) (1 of 2 - PCV) [facility] Start: 12-16-1960 MMR Vaccines (1 of 1 - Standard series) MMR Vaccines (1 of 1 - Standard series) [facility] Start: 1959 HIV screening HIV Screening [facility] Start: 1959 Lipid panel Lipid Panel [facility] Start: 1959 Medicare Annual Well ness Visit Medicare Annual Wellness Visit (AWV) [facility] Start: 1959 Screening for malign ant neoplasm of colon [facility] Start: 1959 Thyroid stimulating hormone measurement TSH Level [facility] Complement C3 [Mass/volume] in Serum or Plasma [facility] Complement C4 [Mass/volume] in Serum or Plasma [facility] End: 02-04-2024 DXA-AXIAL SKELETON DXA-AXIAL SKELETON Radiology Routine Steroid-induced osteoporosis 1 Occurrences starting 01/05/2023 until 02/04/2024 [facility] Work Phone: Comment on above: 1 Occurrences starti 01/05/2023 until 02/04/2024 End: 02-04-2024 DXA-FOREARM SKELETON DXA-FOREARM SKELETON Radiology Routine Steroid-induced osteoporosis 1 Occurrences starting 01/05/2023 until 02/04/2024 [facility] Work Phone: Comment on above: 1 Occurrences starti ng 01/05/2023 until 02/04/2024 Patient Education [facility] Work Phone: Patient referral [facility] Work Phone: Corona extractable nu clear Ab [Units/volume] in Serum [facility] SYNOVIAL FLUID CRYST ALS B/O SYNOVIAL FLUID CRYSTALS B/O Lab Routine Swelling of Knee Joint Ordered: 06/01/2009 [facility] Comment on above: Ordered: 06/01/2009 [facility] Immunizations Immunization Date Immunization Notes Care Provider Cristhian [facility] 04-05-2023 influenza, injectabl e, quadrivalent, preservative free Coleman Brower Other [facility] 02-06-2022 influenza, injectabl e, quadrivalent, contains preservative Sarai Mendez II Other [employer] Other 02-06-2022 influenza virus vaccine, split virus (incl. purified surface antigen) Jonathan Samano Other [facility] 02-06-2022 influenza, injectabl e, quadrivalent, preservative free DO [employer] Work Phone: [facility] 02-06-2022 influenza virus vaccine, unspecified formulation Heladio Pineda MD Work Phone: [facility] 04-11-2021 COVID-19 mRNA, Comirnaty (Pfizer) DO [employer] Work Phone: [facility] 01-18-2021 influenza virus vaccine, split virus (incl. purified surface antigen) Jonathan Samano Other [employer] Other 01-18-2021 Seasonal trivalent influenza vaccine, adjuvanted, preservative free [facility] 01-18-2021 influenza virus vaccine, unspecified formulation Heladio Pineda MD Work Phone: [facility] 06-25-2020 COVID-19 mRNA, Comirnaty (Pfizer) DO [employer] Work Phone: [facility] 06-15-2020 COVID-19 mRNA, Comirnaty (Pfizer) DO [employer] Work Phone: [facility] 06-04-2020 COVID-19 mRNA, Comirnaty (Pfizer) DO [employer] Work Phone: [facility] 05-14-2020 diphtheria, tetanus toxoids and acellular pertussis vaccine, unspecified formulation Jonathan Samano Other [facility] 05-07-2020 Kenalog -40 mg Jonathan Vieiraer Other [employer] Other 01-13-2020 influenza virus vaccine, split virus (incl. purified surface antigen) Jonathan Samano Other [facility] 01-13-2020 influenza virus vaccine, unspecified formulation DO [employer] Work Phone: [facility] 11-03-2019 Kenalog -40 mg Jonathan Vieiraer Other [employer] Other 05-19-2019 Kenalog -40 mg Jonathan Felter Other [employer] Other 01-02-2019 influenza virus vaccine, split virus (incl. purified surface antigen) Jonathan Samano Other [facility] 01-02-2019 influenza virus vaccine, unspecified formulation DO [employer] Work Phone: [facility] 04-08-2018 Kenalog -40 mg Jonathan Vieiraer Other [employer] Other 01-21-2018 influenza virus vaccine, split virus (incl. purified surface antigen) Jonathan Samano Other [employer] Other 01-21-2018 influenza virus vaccine, unspecified formulation DO Colemna Brower Work Phone: [facility] 01-21-2018 Influenza, injectabl e, Madin Nolvia Canine Kidney, quadrivalent with preservative [facility] 04-16-2017 Kenalog -40 mg Jonathan Samano Other [employer] Other 05-23-2016 Kenalog -40 mg Jonathan Samano Other [employer] Other Payers Date Payer Category Payer Medicare [id number] 2022 Self-pay [id number] 2022 Medicare [id number] 1959 Unknown [id number] [id number]3 1959 Unknown [id number] 2.16.840.1.673611.3.579.2.593 1959 Unknown [id number] 2.16.840.1.179345.3.579.2.593 1959 Unknown [id number] 2.16.840.1.740624.3.579.2.593 1959 Unknown [id number] 2.16.840.1.531991.3.579.2.1286 1959 Unknown [id number] 2.16.840.1.773186.3.579.2.128 1959 Unknown [id number] 2.16.840.1.592020.3.579.2.1286 1959 Unknown [id number] 2.16.840.1.236184.3.579.2.1286 1959 Unknown [id number] 2.840.1.452070.3.579.2.1259 1959 Unknown [id number] 2.840.1.579081.3.579.2.1244 1959 Unknown [id number] 2.840.1.606410.3.579.2.1244 1959 Unknown [id number] 2.840.1.608004.3.579.2.1244 1959 Medicare [id number] . [id number] 1959 Private Health Insurance [facility] [id number] [facility] Medicare Medicare [id number] Medicare [place] [facility] PFFS [id number] Unknown [place] BC/BS [id number] Unknown [id number] .840.1.202092.3.579.2.531 Unknown [id number] .840.1.786773.3.579.2.531 Unknown [id number] .840.1.755227.3.579.2.531 Unknown [id number] 2.840.1.566641.3.579.2.531 Unknown [id number] .840.1.980989.3.579.2.531 Unknown [id number] .840.1.703684.3.579.2.531 Unknown [id number] 2.840.1.266317.3.579.2.531 Unknown [id number] .840.1.494649.3.579.2.531 Unknown [id number] 2.16.840.1.411852.3.579.2.531 Unknown [id number] 2.16.840.1.633180.3.579.2.531 Unknown [id number] 2.16.840.1.644850.3.579.2.531 Unknown [id number] 2.16.840.1.080241.3.579.2.531 Social History Date Type Detail Facility Tobacco smoking stat us NHIS Unknown if ever smoked [facility] Start: 1960 Sex Assigned At Not on file C [facility] Start: 01-05-2023 End: 07-05-2023 [facility] Start: 07-04-2021 End: 08-30-2023 Tobacco smoking status NHIS Never smoked tobacco (finding) [facility] Start: 1960 Sex Assigned At Male [facility] Start: 01-05-2023 End: 07-05-2023 Alcohol intake Current drinker of alcohol (finding) [facility] Start: 01-05-2023 End: 07-05-2023 Alcohol intake [employer] National Score (1-100), lower number is lower risk [address] [facility] Start: 01-02-2023 End: 07-27-2023 Tobacco use and exposure Smokeless tobacco non-[facility] Start: 07-17-2023 End: 08-16-2023 Exposure to SARS-CoV-2 (event) Not sure [facility] Medical Equipment Procedure Code Equipment Code Equipment Origin al Text Equipment Identifier Dates Arthroplasty, hip, total, anterior approach Acetabular shell ()[id number] FDA Start: 07-04-2021 Arthroplasty, hip, total, anterior approach Ceramic femoral head prosthesis ()[id number] FDA Start: 07-04-2021 Arthroplasty, hip, total, anterior approach Coated hip femur prosthesis, modular ()[id number] FDA Start: 07-04-2021 Arthroplasty, hip, total, anterior approach Non-constrained polyethylene acetabular liner ()[id number] FDA Start: 07-04-2021 Arthroplasty, hip, total, anterior approach Acetabular shell ()[id number] FDA Start: 02-13-2023 Arthroplasty, hip, total, anterior approach Ceramic femoral head prosthesis ()[id number] FDA Start: 02-13-2023 Arthroplasty, hip, total, anterior approach Coated hip femur prosthesis, modular ()[id number] FDA Start: 02-13-2023 Arthroplasty, hip, total, anterior approach Non-constrained polyethylene acetabular liner ()[id number] FDA Start: 02-13-2023 Goals Date Patient Goal Desired Activity /State Functional Status Date Assessment Result Facility 09-01-2023 Functional status Patient at Baseline [facility] Work Phone: 08-30-2023 Functional status Disability [facility] Patient at Baseline [facility] Work Phone: Mental Status Date Assessment Result Facility 09-01-2023 Cognitive function Cognitive [facility] Patient at Baseline [facility] Work Phone: Clinical Notes 01-05-2021 to 09-10-2023 Telephone Encounter - Precious Hartman MA - 09/10/2023 9:26 AM EDTTelephone Encounter - Precious Hartman MA - 09/10/2023 9:26 AM EDTTelephone Encounter - Heladio Pineda MD - 09/09/2023 11:10 AM EDT Note Date & Type Note Facility 09-10-2023 Telephone encount er Note Pt aware. Patient asked regarding Medrol. He says he is to take until completed. I stated yes. He wants to know if he should continue his other medications. I let him know Dr. Pineda didn't stated anything about any changes to his medication. Precious Hartman MA [facility] 09-10-2023 Miscellaneous Notes Formattin g of this note might be different from the original. Pt aware. Patient asked regarding Medrol. He says he is to take until completed. I stated yes. He wants to know if he should continue his other medications. I let him know Dr. Pineda didn't stated anything about any changes to his medication. Precious Hartman MA Please Call patient if MyChart note not read to review results/released to My Chart if tests completed at F: Normal labs and no inflammation.. Recheck nonfasting labs in 1month, orders have been placed. Happy to further review and discuss at follow up visit. Continue rest of treatment plan per instructions at last office visit. Thank you. 09/05/23 normal esr 2, crp 0.8; 08/02/23 in hospital 07/05/23 low vitamin D 21.4;normal esr 15, crp 0.8, ck 52, aldolase 5.3, vitamin b12-685; 06/28/23 bmd WITHIN THE EXPECTED RANGE FOR AGE Lumbar spine (L1, L2, L3, L4): 1.54 g/cm2, Z-score 2.3 Left Forearm, Distal 1/3 of Radius: 1.089 g/cm2, Z-score 1.5 TRABECULAR BONE ASSESSMENT TBS score: 1.412 Bone micro-architecture: Normal (>1.310) Outside 06/12/23 low mag 1.5;high glucose 117;normal cbc, rest of bmp; 04/18/23 in ED for chronic Afib. 03/05/23 normal esr 9, crp<0.3; documented in this encounter [facility] 09-09-2023 Telephone encount er Note Please Call patient if MyChart note not read to review results/released to My Chart if tests completed at [facility]: Normal labs and no inflammation.. Recheck nonfasting labs in 1month, orders have been placed. Happy to further review and discuss at follow up visit. Continue rest of treatment plan per instructions at last office visit. Thank you. 09/05/23 normal esr 2, crp 0.8; 08/02/23 in hospital 07/05/23 low vitamin D 21.4;normal esr 15, crp 0.8, ck 52, aldolase 5.3, vitamin b12-685; 06/28/23 bmd WITHIN THE EXPECTED RANGE FOR AGE Lumbar spine (L1, L2, L3, L4): 1.54 g/cm2, Z-score 2.3 Left Forearm, Distal 1/3 of Radius: 1.089 g/cm2, Z-score 1.5 TRABECULAR BONE ASSESSMENT TBS score: 1.412 Bone micro-architecture: Normal (>1.310) Outside 06/12/23 low mag 1.5;high glucose 117;normal cbc, rest of bmp; 04/18/23 in ED for chronic Afib. 03/05/23 normal esr 9, crp<0.3; [facility] 09-05-2023 Telephone encount er Note Spoke to pt aware of med sent. [facility] 09-05-2023 Miscellaneous Notes Formattin g of this note might be different from the original. Spoke to pt aware of med sent. Please call patient. Thank you for the update. Sorry to hear about your discomfort. Lab results still pending. Medication sent to pharmacy. Hope you feel better soon! Warm regards, :) Patient's request for medication is as follows: Requested Prescriptions Signed Prescriptions Disp Refills methylPREDNISolone (MEDROL) 4 mg 21 tablet 1 Sig: Day 1=6tabs with food, Day 2=5tabs, Day 3=4tabs, Day 4=3tabs, Day 5=2tabs, Day 6=1tab, No NSAIDs on med Authorizing Provider: HELADIO PINEDA Refused Prescriptions Disp Refills methylPREDNISolone (MEDROL) 4 mg [Pharmacy Med Name: METHYLPREDNISOLONE 4 MG TABLET] 21 tablet 1 Sig: Day 1=6tabs with food, Day 2=5tabs, Day 3=4tabs, Day 4=3tabs, Day 5=2tabs, Day 6=1tab, No NSAIDs on med Refused By: HELADIO PINEDA Reason for Refusal: Request already responded to by other means (for example, phone, fax) Prescription(s) as above. Please process accordingly. Heladio Pineda MD Spoke to pt he states he has been having muscle pain lately and will like to take the medrol dose pack for his pain. Please call patient Inquire if patient still taking medrol Is he have any pain symptoms, PMR symptoms? Per last note patient was off medrol Thank you. Images from the original note were not included. Most recent Rheumatology visit: 07/05/2023 (with Heladio Pineda) Rheumatology Care Team: None on file Recent Office Visits - This Specialty 07/05/2023 PMR (polymyalgia rheumatica) ([facility]) Rheumatology Heladio Pineda MD 03/05/2023 PMR (polymyalgia rheumatica) ([facility]) Rheumatology Heladio Pineda MD 01/05/2023 PMR (polymyalgia rheumatica) ([facility]) Rheumatology Heladio Pineda MD Upcoming Rheumatology Appointments - Next 365 Days Visit Type Date Time Department [facility] 03/17/2024 9:00 AM [facility] CBC: Latest Ref Rng & Units 10/29/2013 01/05/2023 CBC WBC 3.70 - 11.00 k/uL 7.92 12.21 Hemoglobin 13.0 - 17.0 g/dL 15.8 16.3 Hematocrit 39.0 - 51.0 % 44.2 48.7 Platelet Count 150 - 400 k/uL 195 207 Abs Neut (ANC) 1.45 - 7.50 k/uL 5.26 Abs Lymph 1.00 - 4.00 k/uL 1.98 Vitamin D: Latest Ref Rng & Units 01/05/2023 07/05/2023 Vitamin D Vitamin D 25 Hydroxy 31.0 - 80.0 ng/mL 29.6 21.4 LFT: Latest Ref Rng & Units 10/29/2013 01/05/2023 CMP Sodium 136 - 144 mmol/L 142 137 Potassium 3.7 - 5.1 mmol/L 3.6 4.3 Chloride 97 - 105 mmol/L 106 98 CO2 22 - 30 mmol/L 24 24 Glucose 74 - 99 mg/dL 89 120 BUN 9 - 24 mg/dL 17 20 Creatinine 0.73 - 1.22 mg/dL 1.08 0.98 Calcium 8.5 - 10.2 mg/dL 9.6 10.3 AST 14 - 40 U/L 20 16 ALT 10 - 54 U/L 20 27 Alkaline Phosphatase 38 - 113 U/L 73 57 Hepatic Function: Creatinine: None on file in the last 6 months ESR/CRP: Latest Ref Rng & Units 03/05/2023 07/05/2023 ESR, WSR WSR 0 - 15 mm/hr 9 15 Latest Ref Rng & Units 03/05/2023 07/05/2023 CRP CRP <0.9 mg/dL <0.3 0.8 Uric Acid: Latest Ref Rng & Units 01/05/2023 07/05/2023 Uric Acid Uric Acid 4.0 - 8.1 mg/dL 6.1 7.2 Open Standing (Multiple Instance) Lab Orders None Open Future (Single Instance) Lab Orders Expected Expires Ordered SED RATE DAYRONREN [SQWSR] 08/08/23 07/08/24 07/09/23 Auth. provider: Heladio Pineda MD Assoc. diagnoses: Elevated sed rate, Elevated C-reactive protein (CRP) C-REACTIVE PROTEIN (CRP) [SQCRP] 08/08/23 07/08/24 07/09/23 Auth. provider: Heladio Pineda MD Assoc. diagnoses: Elevated sed rate, Elevated C-reactive protein (CRP) VITAMIN D 25 HYDROXY [SQVITD] 10/08/23 07/08/24 07/09/23 Auth. provider: Heladio Pineda MD Assoc. diagnoses: Vitamin D deficiency documented in this encounter [facility] 09-05-2023 Telephone encount er Note Please call patient. Thank you for the update. Sorry to hear about your discomfort. Lab results still pending. Medication sent to pharmacy. Hope you feel better soon! Warm regards, :) Patient's request for medication is as follows: Requested Prescriptions Signed Prescriptions Disp Refills methylPREDNISolone (MEDROL) 4 mg 21 tablet 1 Sig: Day 1=6tabs with food, Day 2=5tabs, Day 3=4tabs, Day 4=3tabs, Day 5=2tabs, Day 6=1tab, No NSAIDs on med Authorizing Provider: HELADIO PINEDA Refused Prescriptions Disp Refills methylPREDNISolone (MEDROL) 4 mg [Pharmacy Med Name: METHYLPREDNISOLONE 4 MG TABLET] 21 tablet 1 Sig: Day 1=6tabs with food, Day 2=5tabs, Day 3=4tabs, Day 4=3tabs, Day 5=2tabs, Day 6=1tab, No NSAIDs on med Refused By: HELADIO PINEDA Reason for Refusal: Request already responded to by other means (for example, phone, fax) Prescription(s) as above. Please process accordingly. Heladio Pineda MD [facility] 09-05-2023 Telephone encount er Note Spoke to pt he states he has been having muscle pain lately and will like to take the medrol dose pack for his pain. [facility] 09-05-2023 Telephone encount er Note Please call patient Inquire if patient still taking medrol Is he have any pain symptoms, PMR symptoms? Per last note patient was off medrol Thank you. [facility] 09-05-2023 Telephone encount er Note Images from the original note were not included. Most recent Rheumatology visit: 07/05/2023 (with Heladio Pineda) Rheumatology Care Team: None on file Recent Office Visits - This Specialty 07/05/2023 PMR (polymyalgia rheumatica) ([facility]) Rheumatology Heladio Pineda MD 03/05/2023 PMR (polymyalgia rheumatica) ([facility]) Rheumatology Heladio Pineda MD 01/05/2023 PMR (polymyalgia rheumatica) ([facility]) Rheumatology Heladio Pineda MD Upcoming Rheumatology Appointments - Next 365 Days Visit Type Date Time Department [facility] 03/17/2024 9:00 AM [facility] CBC: Latest Ref Rng & Units 10/29/2013 01/05/2023 CBC WBC 3.70 - 11.00 k/uL 7.92 12.21 Hemoglobin 13.0 - 17.0 g/dL 15.8 16.3 Hematocrit 39.0 - 51.0 % 44.2 48.7 Platelet Count 150 - 400 k/uL 195 207 Abs Neut (ANC) 1.45 - 7.50 k/uL 5.26 Abs Lymph 1.00 - 4.00 k/uL 1.98 Vitamin D: Latest Ref Rng & Units 01/05/2023 07/05/2023 Vitamin D Vitamin D 25 Hydroxy 31.0 - 80.0 ng/mL 29.6 21.4 LFT: Latest Ref Rng & Units 10/29/2013 01/05/2023 CMP Sodium 136 - 144 mmol/L 142 137 Potassium 3.7 - 5.1 mmol/L 3.6 4.3 Chloride 97 - 105 mmol/L 106 98 CO2 22 - 30 mmol/L 24 24 Glucose 74 - 99 mg/dL 89 120 BUN 9 - 24 mg/dL 17 20 Creatinine 0.73 - 1.22 mg/dL 1.08 0.98 Calcium 8.5 - 10.2 mg/dL 9.6 10.3 AST 14 - 40 U/L 20 16 ALT 10 - 54 U/L 20 27 Alkaline Phosphatase 38 - 113 U/L 73 57 Hepatic Function: Creatinine: None on file in the last 6 months ESR/CRP: Latest Ref Rng & Units 03/05/2023 07/05/2023 ESR, WSR WSR 0 - 15 mm/hr 9 15 Latest Ref Rng & Units 03/05/2023 07/05/2023 CRP CRP <0.9 mg/dL <0.3 0.8 Uric Acid: Latest Ref Rng & Units 01/05/2023 07/05/2023 Uric Acid Uric Acid 4.0 - 8.1 mg/dL 6.1 7.2 Open Standing (Multiple Instance) Lab Orders None Open Future (Single Instance) Lab Orders Expected Expires Ordered SED RATE WESTERGREN [SQWSR] 08/08/23 07/08/24 07/09/23 Auth. provider: Heladio Pineda MD Assoc. diagnoses: Elevated sed rate, Elevated C-reactive protein (CRP) C-REACTIVE PROTEIN (CRP) [SQCRP] 08/08/23 07/08/24 07/09/23 Auth. provider: Heladio Pineda MD Assoc. diagnoses: Elevated sed rate, Elevated C-reactive protein (CRP) VITAMIN D 25 HYDROXY [SQVITD] 10/08/23 07/08/24 07/09/23 Auth. provider: Heladio Pineda MD Assoc. diagnoses: Vitamin D deficiency [facility] 08-31-2023 Progress note Note Date/Time August 31, 2023 10:54am [facility] [address] [place] [address] Hospitalist Progress Note Signed with Elida Patient: Esme Steven MR#: [id number] : 1960 Acct:[id number] Age/Sex: 62 / M Adm Date: 4 Loc: Room: [address] [place] [address] Type: ADM IN Attending Dr: Sally Alex MD Copies to: ~ ADDENDUM1 Patient was personally seen by me on the day of encounter, reviewed his history and performed gomez elements of exam and formulated the plan of care and confirmedthe resident/interns note below. Addendum Documented By: Sally Alex MD 08/31/23 154 Addendum Signed By: <Electronically signed by Sally Alex MD> 08/31/231544 Date of Service: 08/31/2023 Subjective Subjective Narrative: Mr. Steven is resting comfortably in bed this morning on his left side. He reports no overnight events. He denies any new onset signs or symptoms. Overall, he notes that he is feeling much better. Generally, he says that he feels like he is back to normal. He denies any fevers, chills, nausea, vomiting, diarrhea, constipation. He denies any hematochezia or melena since his last stool. He is urinating normally. All questions and concerns are addressed at this time. Exam Physical Exam Vital Signs: Temp Pulse Resp BP Pulse Ox O2 Del Method 98.9 F 77 20 130/76 95 Room Air 08/31/23 08:50 08/31/23 08:50 08/31/23 08:50 08/31/23 08:50 08/31/23 08:50 08/31/23 08:50 Narrative: General: A&Ox4, no acute distress HEENT: head atraumatic, normocephalic, moist mucous membranes Neck: supple no masses, no lymphadenopathy CVS: regular rate and rhythm, no murmurs or gallops Respiratory: clear to auscultation bilaterally, no wheezing or crackles, symmetric expansion GI: soft, nondistended, nontender, positive bowel sounds with no organomegaly Extremity: moves all extremities, no restrictions of movements, no calf tenderness, no edema Neuro: Moves all extremities in all planes of motion. Skin: dry, intact no rashes or lesions Psych: Cooperative, congruent mood, bright affect Objective Lab Results 08/31/23 06:44 08/31/23 06:44 Microbiology Results Microbiology 08/30/23 18:49 Nasopharyngeal Respiratory Panel (PCR) - Final 08/30/23 18:49 Nasopharyngeal SARS-CoV-2, Influenza & RSV (PCR) - Final Meds Allergies and Active Meds Allergies prednisone Allergy (Unknown, Verified 08/30/23 16:28) Agitated, HEADACHES Active Meds: Active Medications Generic Name Dose Route Start Last Admin Trade Name Freq PRN Reason Stop Dose Admin Acetaminophen 650 mg 08/30/23 22:53 Acetaminophen 325 Mg Tablet PO 08/29/24 22:52 Q6HR PRN Pain Scale 1 - 3 or fever Allopurinol 100 mg 08/31/23 09:00 08/31/23 08:59 Allopurinol 100 Mg Tablet PO 08/30/24 08:59 100 mg QAM EAGLE Administration Alprazolam 0.5 mg 08/30/23 22:55 08/30/23 23:33 Alprazolam 0.5 Mg Tablet PO 02/26/24 22:54 0.5 mg QHS EAGLE Administration Apixaban 5 mg 08/30/23 22:55 08/31/23 08:59 Apixaban 5 Mg Tablet PO 08/29/24 22:54 5 mg BID EAGLE Administration Aspirin 81 mg 08/31/23 09:00 08/31/23 08:59 Aspirin 81 Mg Tablet.Dr PO 08/30/24 08:59 81 mg DAILY EAGLE Administration Atorvastatin Calcium 80 mg 08/31/23 22:00 Atorvastatin 80 Mg Tablet PO 08/30/24 21:59 QHS EAGLE Colchicine 0.6 mg 08/31/23 09:00 08/31/23 08:59 Colchicine 0.6 Mg Tablet PO 08/30/24 08:59 0.6 mg Q48HR EAGLE Administration Escitalopram Oxalate 20 mg 08/31/23 09:00 08/31/23 08:59 Escitalopram 20 Mg Tablet PO 08/30/24 08:59 20 mg DAILY EAGLE Administration Sodium Chloride 1,000 mls @ 0 mls/hr 08/30/23 20:45 08/30/23 20:51 0.9% Sodium Chloride 1,000 Ml IV 08/29/24 20:44 20 mls/hr .Q0M EAGLE Administration KVO Piperacillin Sod/Tazobactam Sod 4.5 gm in 100 mls @ 25 mls/hr 08/30/23 23:45 08/31/23 02:37 Zosyn IV 25 mls/hr Q8H EAGLE Administration Magnesium Sulfate 2 gm in 50 mls @ 25 mls/hr 08/30/23 22:53 Magnesium Sulf 2gm-*Swfi* IV 08/29/24 22:52 DAILY PRN Magnesium Level < 1.7 Levothyroxine Sodium 150 mcg 08/31/23 06:30 08/31/23 06:13 Levothyroxine 150 Mcg Tablet PO 08/30/24 06:29 150 mcg DAILY@0630 EAGLE Administration Methylprednisolone 4 mg 09/01/23 09:00 Methylprednisolone 4 Mg Tablet PO 08/31/24 08:59 Q48HR EAGLE Metoprolol Succinate 50 mg 08/31/23 09:00 08/31/23 08:59 Metoprolol Succinate 50 Mg Tab.Er.24h PO 08/30/24 08:59 50 mg QAM EAGLE Administration Ondansetron HCl 4 mg 08/30/23 22:53 Ondansetron 4 Mg/2 Ml Vial IV-PUSH 08/29/24 22:52 Q6H PRN Nausea And Vomiting Potassium Chloride 40 meq 08/30/23 22:53 Potassium Chloride Er 20 Meq Tab.Er.Prt PO 08/29/24 22:52 DAILY PRN Hypokalemia Sodium Chloride 0 ml 08/30/23 16:28 08/30/23 19:46 Sodium Chloride 0.9 % 10 Ml Syringe IV-PUSH 08/29/24 16:27 10 ml PRN PRN Administration Flush Sodium Chloride 0 ml 08/31/23 06:00 08/31/23 06:12 Sodium Chloride 0.9 % 10 Ml Syringe IV-PUSH 08/30/24 05:59 Not Given QSHIFT [facility] A&P - Hospitalist Assessment/Plan (1) Acute diverticulitis: (2) Sepsis: Plan Acute diverticulitis, sepsis -Continue IV Zosyn. -Awaiting culture results. -1 set of blood culture growing gram positive and follow-up final culture result -Continue normal heart healthy p.o. diet as tolerated. Chronic glucocorticoid use -Cortisol level is normal. -Continue Medrol. Other chronic medical conditions -Continue current at home medication regiment. Documented By: Sally Alex MD 08/31/23 1050 Signed By: <Electronically signed by Sally Alex MD> 08/31/23 1545 <Electronically signed by DO RADHA Zavala> 08/31/23 105 [facility] Work Phone: 1(431) 418-558905-24-2024 History and physical note Author Elliott Talley [facility] August 30, 2023 11:34pm Note Date/Time August 30, 2023 11:04 pm [facility] [address] [place] [address] Hospitalist H&P Signed Patient: Esme Steven MR#: [id number] : 1960 Acct:[id number] Age/Sex: 62 / M Adm Date: 4 Loc: Room: [address] [place] [address] Type: ADM IN Attending Dr: Elliott Talley MD Copies to: DO Elliott Hannah MD~ HPI DATE OF EXAMINATION: 08/30/23 CHIEF COMPLAINT: Dizziness, abdominal pain HISTORY OF PRESENT ILLNESS: Mr. Steven is a 62-year-old male with PMH of CAD status post CABG x 4, atrial fibrillation, HTN, GERD, HLD, obesity, FER who presents to the emergency department today with complaints of dizziness, general malaise and abdominal pain. Patient states that yesterday he was in his normal state of health. He notes that he awoke this morning with headache and lightheadedness. He did not think much of it, and was able to go out and have breakfast and go to work. He notes that throughout the day, he had worsening abdominal discomfort and pain. His lightheadedness worsened as well. He notes chronic loose in stools, but nowhematochezia, major changes in his stool pattern in the last day or 2. He had his bring him into the emergency department for further evaluation. In the ED, patient tachycardic in the low 100s and sinus tachycardia. In addition, initial temperature was 102F. Workup included CBC which did demonstrate leukocytosis of 14.5. Initial lactic acid was 2.4. Chemistry was largely within normal limits. Cultures were obtained and patient was given IV fluids with Compazine and Benadryl. CT of the head without contrast, CTA of thehead and neck and CT of the abdomen pelvis were performed. There is some mild carotid artery plaque noted, but otherwise head imaging was unremarkable for acute findings. CT of the abdomen pelvis noted acute sigmoid diverticulitis findings. He was given IV Unasyn for sepsis coverage. Case was discussed between myself and ED attending and patient was recommended for admission for further inpatient management. Review of Systems Review of Systems Review of systems: 10 point ROS reviewed and is negative except for that which is noted above in HPI [facility] Medical History (Updated 08/30/23 @ 23:33 by Elliott Talley MD) Atrial fibrillation GENESIS (generalized anxiety disorder) ASHD (arteriosclerotic heart disease) Pseudogout Primary osteoarthritis 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 Primary hypertension Polymyalgia rheumatica Persistent atrial fibrillation FER (obstructive sleep apnea) Mild episode of recurrent major depressive disorder Lumbar spondylosis Internal derangement of left shoulder Inflammatory polyarthritis Hypomagnesemia Gastroesophageal reflux disease with esophagitis without hemorrhage Elevated cholesterol Autoimmune thyroiditis History of left heart catheterization (LHC) ASHD (arteriosclerotic heart disease) GENESIS (generalized anxiety disorder) Bulging lumbar disc Osteoarthritis Gout BPH (benign prostatic hyperplasia) Hypothyroidism Hypertension Hyperlipidemia Myocardial infarct Mitral valve disorder Surgical History Hx of total knee arthroplasty S/P total left hip arthroplasty Presence of right artificial hip joint History of bilateral knee replacement Hx of total knee arthroplasty History of vasectomy History of appendectomy History of bilateral knee arthroplasty History of lumbar surgery History of cardiac catheterization multiple S/P CABG x 4 2014 H/O heart artery stent prior to 2014 Family History Mother Kidney stones Pacemaker Stroke History of stroke Heart disease Father CAD (coronary artery disease) Brother Brain aneurysm Agent orange exposure Social History Smoking Status: Never smoker Substance Use Type: Alcohol Substance Abuse Comment: 4 beers daily, has medical marijuana card but states never use thc Meds Medications and Allergies Allergies prednisone Allergy (Unknown, Verified 08/30/23 16:28) Agitated, HEADACHES Home Medications aspirin 81 mg tablet,delayed release 81 mg PO DAILY [place] prevention 01/29/17 [History Confirmed 08/30/23] atorvastatin 80 mg tablet (Lipitor) 80 mg PO QHS 01/29/17 [History Confirmed 08/30/23] allopurinol 100 mg tablet 100 mg PO QAM gout prevention 06/20/21 [History Confirmed 08/30/23] levothyroxine 150 mcg tablet (Synthroid) 150 mcg PO QAM 06/20/21 [History Confirmed 08/30/23] metoprolol succinate 50 mg tablet,extended release 24 hr 50 mg PO QAM 06/20/21 [History Confirmed 08/30/23] valacyclovir 500 mg tablet 500 mg PO QAM cold sores 06/20/21 [History Confirmed 08/30/23] alprazolam 0.5 mg tablet 0.5 mg PO QHS 30 days #30 tabs 06/04/23 [Rx Confirmed 08/30/23] apixaban 5 mg tablet 5 mg PO BID 06/28/23 [History Confirmed 08/30/23] sildenafil 100 mg tablet 100 mg PO DAILY PRN sexual activity 06/28/23 [History Confirmed 08/30/23] escitalopram oxalate 20 mg tablet 20 mg PO DAILY 90 days #90 tabs 06/29/23 [Rx Confirmed 08/30/23] methylprednisolone 4 mg tablet (Medrol) 4 mg PO Q2D 08/01/23 [History Confirmed 08/30/23] colchicine 0.6 mg capsule 0.6 mg PO DAILY 08/02/23 [History Confirmed 08/30/23] Exam Physical Exam Vital Signs: Temp Pulse Resp BP Pulse Ox O2 Del Method 99.8 F H 86 21 107/67 93 L Room Air 08/30/23 20:00 08/30/23 22:00 08/30/23 22:00 08/30/23 22:00 08/30/23 22:00 08/30/23 22:00 Narrative: Constitutional: Elderly obese WM, resting in bed, and mild discomfort from abdominal pain. Flushed HEENT: Moist mucous membranes, neck supple, no JVD Cardiovascular: RRR, no M/R/G, normal S1 and S2 Respiratory: Clear to auscultation bilaterally, no wheezes, rales or rhonchi GI: Soft, obese abdomen. Mildly tender to palpation in the left lower quadrant,NABS : Deferred Extremities: No clubbing, cyanosis or edema Neuro: AAOx3, no focal deficits Skin: Erythema on the cheeks and present on the back throughout. Small bruises and abrasions noted in the bilateral upper extremities Psych: Calm, cooperative and conversant Results - Hospitalist H&P Lab Results Labs: Laboratory Last Values Corrected WBC 14.5 X10E3/uL (4.1-10.5) H 08/30/23 18:20 Uncorrected WBC Count 14.5 x10E3/uL (4.1-10.5) H 08/30/23 18:20 RBC 4.70 X10E6/uL (3.90-5.60) 08/30/23 18:20 Hgb 16.2 g/dL (13.0-17.0) 08/30/23 18:20 Hct 48.1 % (38.8-50.0) 08/30/23 18:20 MCV 102.3 fl (83.5-101) H 08/30/23 18:20 MCH 34.5 pg (27.5-35.2) 08/30/23 18:20 MCHC 33.7 g/dL (32.5-35.6) 08/30/23 18:20 RDW 15.1 % (12.0-14.8) H 08/30/23 18:20 Plt Count 147 x10E3/uL (150-450) L 08/30/23 18:20 MPV 8.7 fl (6.6-10.1) 08/30/23 18:20 Neut % (Auto) 92.4 % (.) 08/30/23 18:20 Lymph % (Auto) 4.4 % (.) 08/30/23 18:20 Bureau % (Auto) 2.3 % (.) 08/30/23 18:20 Eos % (Auto) 0.1 % (.) 08/30/23 18:20 Baso % (Auto) 0.8 % (.) 08/30/23 18:20 Nucleat RBC Rel Count 0.0 /100 WBC (0-0.5) 08/30/23 18:20 Neut # (Auto) 13.4 x10E3/uL (1.8-7.7) H 08/30/23 18:20 Lymph # (Auto) 0.6 x10E3/uL (1.00-4.8) L 08/30/23 18:20 Bureau # (Auto) 0.3 x10E3/uL (0.0-0.8) 08/30/23 18:20 Eos # (Auto) 0.0 x10E3/uL (0.0-0.45) 08/30/23 18:20 Baso # (Auto) 0.1 x10E3/uL (0.0-0.2) 08/30/23 18:20 Monocyte Dist Width 21.88 % (0.00-20.00) H 08/30/23 18:20 PT 12.8 Seconds (9.0-12.9) 08/30/23 18:20 INR 1.1 08/30/23 18:20 APTT 25.5 Seconds (25.1-36.5) 08/30/23 18:20 PHA Creatinine Clear 82.75 08/30/23 18:20 Sodium 136 mmol/L (136-145) 08/30/23 18:20 Potassium 3.3 mmol/L (3.5-5.1) L 08/30/23 18:20 Chloride 100 mmol/L (98-107) 08/30/23 18:20 Carbon Dioxide 25.1 mmol/L (21.0-31.0) 08/30/23 18:20 Anion Gap 14.2 mEq/L (6.0-15.0) 08/30/23 18:20 BUN 21 mg/dL (7-25) 08/30/23 18:20 Creatinine 1.11 mg/dL (0.70-1.30) 08/30/23 18:20 Est GFR (CKD-EPI) > 60.0 mL/Min 08/30/23 18:20 Glucose 123 mg/dL (70-100) H 08/30/23 18:20 Lactic Acid 1.9 mmol/L (0.5-2.2) 08/30/23 21:02 Calcium 9.3 mg/dL (8.6-10.3) 08/30/23 18:20 Total Bilirubin 0.9 mg/dl (0.3-1.0) 08/30/23 18:20 Direct Bilirubin 0.20 mg/dL (0.03-0.18) H 08/30/23 18:20 Indirect Bilirubin 0.7 mg/dL 08/30/23 18:20 AST 27 U/L (13-39) 08/30/23 18:20 ALT 44 U/L (7-52) 08/30/23 18:20 Alkaline Phosphatase 46 U/L (34-104) 08/30/23 18:20 Total Creatine Kinase 37 U/L (30-223) 08/30/23 18:20 Troponin I High Sens 16.9 pg/mL (0.0-20.0) 08/30/23 19:57 B-Natriuretic Peptide 401.0 pg/mL (5-100) H 08/30/23 18:20 Total Protein 7.0 gm/dL (6.4-8.9) 08/30/23 18:20 Albumin 4.2 gm/dL (3.5-5.7) 08/30/23 18:20 Globulin 2.8 gm/dL 08/30/23 18:20 Albumin/Globulin Ratio 1.5 08/30/23 18:20 Lipase 13.0 U/L (11.0-82.0) 08/30/23 18:20 Urine Color Yellow (Yellow) 08/30/23 18:45 Urine Appearance Clear (Clear) 08/30/23 18:45 Urine pH 5.5 (5.0-9.0) 08/30/23 18:45 Ur Specific [place] 1.016 (1.001-1.030) 08/30/23 18:45 Urine Protein Negative mg/dL (Negative) 08/30/23 18:45 Urine Glucose (UA) Normal mg/dL (Normal) 08/30/23 18:45 Urine Ketones Negative (Negative) 08/30/23 18:45 Urine Occult Blood Negative (Negative) 08/30/23 18:45 Urine Nitrite Negative (Negative) 08/30/23 18:45 Urine Bilirubin Negative (Negative) 08/30/23 18:45 Urine Urobilinogen Normal mg/dL (Normal) 08/30/23 18:45 Ur Leukocyte Esterase Negative (Negative) 08/30/23 18:45 SARS-CoV-2 Rap RNA(RT-PCR) Negative (Negative) 08/30/23 18:49 Microbiology Results Micro: Microbiology - Results from entire visit 08/30/23 18:49 Nasopharyngeal SARS-CoV-2, Influenza & RSV (PCR) - Final Assessment & Plan Assessment/Plan (1) Sepsis: (2) Acute diverticulitis: Plan Sepsis Acute diverticulitis Lactic acidosis Suspect that patient's GI findings on CT scan are etiology of infection. No other clear source at this time. -Continue antibiotics with IV Zosyn -Follow-up blood, urine cultures -Supportive care otherwise Chronic glucocorticoid use Patient is very flushed, and has been on Medrol for his osteoarthritis for long period of time. Has some cushingoid features -Check cortisol level -Continue Medrol every other day Other chronic medical conditions noted below, continue home regimens unless otherwise specified: Osteoarthritis-continue Medrol CAD status post CABG x 4-ASA, metoprolol, atorvastatin Atrial fibrillation-recent cardioversion, continue Eliquis, metoprolol, Hypertension GERD Hypothyroidism Hyperlipidemia-atorvastatin FER-recommend CPAP GENESIS CODE STATUS: Full code IP vs OBS Justification Based on differential dx, clinical care plan, and risk of adverse events, if untreated, in my clinical judgement this patient requires an acute care setting as: INPATIENT because of an expectation of an over 2 midnight stay. Estimated length of stay (# of days): 3 Quality Measures SEPSIS Tissue perfusion reassessment (select if applicable): Tissue perfusion reassessed after bolus given FOCUSED EXAM Capillary refill: Capillary refill < 3 seconds Peripheral pulses: Pulses present bilaterally Skin color/condition: Warm and pink Documented By: Elliott Talley MD 4 0 Signed By: <Electronically signed by Elliott Talley MD> 08/30/23 2334 [facility] Work Phone: 1(255) 465-548705-09-2024 History of Present illness Narrative* Ky Navarro MA - 08/16/2023 10:00 AM EDT Patient is here for an EKG visit ordered by Dr. Mora due to atrial fibrillation. Dr. Arce in suite. Patient is here status post cardioversion completed on 08/02/23 . Medication list Updated verbally with patient in office. Denies any cardiac complaints at this time. Discussed with Sarah Jacobs RN prior to discharge. To Dr. Mora for review. Vitals: 08/16/23 1136 BP: 124/74 BP Location: Left arm Patient Position: Sitting Pulse: 75 Weight: 111 kg (244 lb) Height: 1.791 m (5' 10.5 ) documented in this [facility] Work Phone: 1(781) 962-231704-25-2024 [facility] History of Present illness Narrative* Antonio Mora MD - 07/27/2023 11:00 AM EDT Cardiology Consultation- New Consult Reason for referral: Afib, establish care, previous [facility] patient HPI: Esme Steven is a 62 y.o. male with known history of coronary artery disease with prior bypass surgery back in 2014 including RIVAS to the LAD, SVG to diagonal, SVG to the OM and SVG to the RCA with history of hypertension and hyperlipidemia. Patient report back in April had COVID after which she developed persistent atrial fibrillation. He was placed on Eliquis. Patient has been compliant with his medication. He had been seen in the past by the [facility] group but elected to change because of convenience. He denies complaint of chest pain, palpitation, lightheadedness, dizziness or syncope. He does not describe history of hypothyroidism and sleep apnea for Bilroth he had b een treated adequately. He is compliant with his Eliquis. Assessment 1. Persistent atrial fibrillation for about 3-month. Has been compliant with his Eliquis. Minimallysymptomatic 2. Coronary artery disease status post four-vessel bypass surgery with RIVAS to the LAD, SVG to diagonal, SVG to OM and SVG to RCA 3. Hypertension 4. Hyperlipidemia 5. Obesity 6. Sleep apnea on CPAP 7. Hypothyroidism on replacement therapy 8. history of mild ischemic cardiomyopathy EF in the 45% 9. Chronic anticoagulation due to persistent atrial fibrillation tolerating that well without any side effect Plan 1. We discussed treatment option in regard to atrial fibrillation. We discussed heart rate control strategy versus rhythm control strategy following lengthy discussion the patient agreed to proceed with cardioversion. Risk, benefits alternative reviewed with patient at length he understood and agreed 2. Continue present medical regimen 3. Continue aggressive approach risk factor modification with exercise, losing weight 4. Encouraged him to be compliant with his CPAP 5. Will consider adding low-dose CALEB inhibitor following cardioversion for secondary prevention Past Medical History: He has no past medical history on file. Surgical History: He has a past surgical history that includes Coronary artery bypass graft; Total knee arthroplasty (Bilateral); Total hip arthroplasty (Bilateral); Back surgery; Appendectomy; and Colonoscopy. Family History: No family history on file. Social History: Social History Tobacco Use Smoking status: Never Smokeless tobacco: Never Substance Use Topics Alcohol use: Yes Alcohol/week: 7.0 standard drinks of alcohol Types: 7 Cans of beer per week Allergies: Prednisone Current Medications: Current Outpatient Medications: allopurinol (Zyloprim) 100 mg tablet, Take 1 tablet (100 mg) by mouth once daily., Disp: , Rfl: ALPRAZolam (Xanax) 0.5 mg tablet, Take 1 tablet (0.5 mg) by mouth as needed at bedtime for sleep., Disp: , Rfl: aspirin 81 mg EC tablet, Take 1 tablet (81 mg) by mouth once daily., Disp: , Rfl: atorvastatin (Lipitor) 80 mg tablet, Take 1 tablet (80 mg) by mouth once daily., Disp: , Rfl: Eliquis 5 mg tablet, Take 1 tablet (5 mg) by mouth 2 times a day., Disp: , Rfl: escitalopram (Lexapro) 20 mg tablet, Take 1 tablet (20 mg) by mouth once daily., Disp: , Rfl: levothyroxine (Synthroid, Levoxyl) 150 mcg tablet, Take 1 tablet (150 mcg) by mouth once daily in the morning. Take before meals., Disp: , Rfl: methylPREDNISolone (Medrol) 4 mg tablet, Take 1 tablet (4 mg) by mouth. Take 4 tablets by mouth every other day, Disp: , Rfl: metoprolol succinate XL (Toprol-XL) 50 mg 24 hr tablet, Take 1 tablet (50 mg) by mouth once daily.,Disp: , Rfl: spironolacton-hydrochlorothiaz (Aldactazide) 25-25 mg tablet, Take 1 tablet (25 mg) by mouth once daily in the morning. Take before meals., Disp: , Rfl: valACYclovir (Valtrex) 500 mg tablet, Take 1 tablet (500 mg) by mouth once daily., Disp: , Rfl: Vitals: Vitals: 07/27/23 1113 07/27/23 1114 BP: (!) 118/92 110/80 BP Location: Left arm Right arm Patient Position: Sitting Sitting Pulse: 91 Weight: 111 kg (245 lb) Height: 1.778 m (5' 10 ) EKG done in office today Review of Systems All other systems reviewed and are negative. Objective Physical Exam Constitutional: Appearance: Normal appearance. HENT: Nose: Nose normal. Neck: Vascular: No carotid bruit. Cardiovascular: Rate and Rhythm: Tachycardia present. Rhythm regularly irregular. Pulses: Normal pulses. Heart sounds: Normal heart sounds. Pulmonary: Effort: Pulmonary effort is normal. Abdominal: General: Bowel sounds are normal. Palpations: Abdomen is soft. Musculoskeletal: General: Normal range of motion. Cervical back: Normal range of motion. Right lower leg: No edema. Left lower leg: No edema. Skin: General: Skin is warm and dry. Neurological: General: No focal deficit present. Mental Status: He is alert. Psychiatric: Mood and Affect: Mood normal. Behavior: Behavior normal. Thought Content: Thought content normal. Judgment: Judgment normal. Assessment and Plan: 1. Persistent atrial fibrillation (Multi) 2. Multi-vessel coronary artery stenosis 3. Cardiomyopathy, ischemic 4. Mixed hyperlipidemia 5. 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 (Multi) Follow Up In Cardiology ECG 12 Lead Cardioversion External ECG 12 Lead 6. 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 BMI 35.0-35.9,adult Scribe Attestation By signing my name below, I, Ashly Adame LPN attest that this documentation has been prepared under the direction and in the presence of MD Damon. Provider Attestation - Scribe documentation All medical record entries made by the Scribe were at my direction and personally dictated by me. Ihave reviewed the chart and agree that the record accurately reflects my personal performance of the history, physical exam, discussion and plan. documented in this [facility] Work Phone: [phone]) 326-566804-19-2024 Instructions* Patient Instructions* Zo Castro LPN - 07/27/2023 11:00 AM EDT Please bring all medicines, vitamins, and herbal supplements with you when you come to the office. Prescriptions will not be filled unless you are compliant with your follow up appointments or have a follow up appointment scheduled as per instruction of your physician. Refills should be requested at the time of your visit. BMI was above normal measurement. Current weight: 111 kg (245 lb) Weight change since last visit (-) denotes wt loss 245 lbs Weight loss needed to achieve BMI 25: 71.1 Lbs Weight loss needed to achieve BMI 30: 36.4 Lbs Provided instructions on dietary changes Provided instructions on exercise. [facility] Work Phone: 1(308) 927-712304-01-2024 Miscellaneous Notes* Telephone Encounter - Polly Magana LPN - 07/09/2023 11:57 AM EDT Called and spoke to patient. He is aware of message below from Dr. Pineda. Patient verbalized understanding. * Telephone Encounter - Heladio Pineda MD - 07/09/2023 7:44 AM EDT Please Call patient if MyChart note not read to review results/released to My Chart if tests completed at [facility]: Low vitamin D maybe associated with fatigue/joint/muscle pain. Start vitamin D script with food, then take over the counter vitamin D 4000 International Units daily with food after script completed. Rest of labs normal and no inflammation. New script sent to pharmacy. Notify office if medication change is not tolerated. Recheck nonfasting labs in 1month and 3months, orders have been placed. Notify office if symptoms improved with steroid? Happy to further review and discuss at follow up visit. Continue rest of treatment plan per instructions at last office visit. Thank you. 07/05/23 low vitamin D 21.4;normal esr 15, crp 0.8, ck 52, aldolase 5.3, vitamin b12-685; 06/28/23 bmd WITHIN THE EXPECTED RANGE FOR AGE Lumbar spine (L1, L2, L3, L4): 1.54 g/cm2, Z-score 2.3 Left Forearm, Distal 1/3 of Radius: 1.089 g/cm2, Z-score 1.5 TRABECULAR BONE ASSESSMENT TBS score: 1.412 Bone micro-architecture: Normal (>1.310) Outside 06/12/23 low mag 1.5;high glucose 117;normal cbc, rest of bmp; 04/18/23 in ED for chronic Afib. 03/05/23 normal esr 9, crp<0.3; Patient's request for medication is as follows: Requested Prescriptions Signed Prescriptions Disp Refills ergocalciferol 50,000 unit capsule (VITAMIN D2, DRISDOL) 16 capsule 0 Sig: (take by mouth with food twice a week, ONE CAPSULE ON SUNDAY AND ONE ON SUNDAY) FOR A TOTAL OF 8 WEEKS. Authorizing Provider: HELADIO PINEDA Prescription(s) as above. Please process accordingly. Heladio Pineda MD documented in this encounterH[facility]-28-[facility]24 NoteHNO ID: [id number] Author: HELADIO PINEDA MD Service: ? Author Type: Physician Type: Progress Notes Filed: 07/05/2023 16:40 Note Text: Face to face fur for joint pain/ osteoarthritis/gout/pseudogout/ rotator cuff tear/PMR/low vitamin D Today's visit 07/05/23: taking eliquis, OFF medrol since 05/2023, allopurinoll 100mg daily. 2months ago Left knee gout for 2days. yes PMR,unable to lift UEs, unable to pull up bed covers due to UE pain. he denies GCA. No vitamin D. 04/2023 +COVID19 treated with paxlovid, 04/18/23 went into Afib, due to see cardiology soon 06/28/23 bmd WITHIN THE EXPECTED RANGE FOR AGE. limited exercise due to pain. hands swelling. Chronic current pain in UEs worse since off steroids. Reports pain 7-12/17. Has extended AM stiffness. Feels safe at home. Has enough food, supplies and medications. Overall uncomfortable but happy with rheum care. No falls/fx/trauma/illness/oral sores/rash/hairloss/jaw pain/dysphagia/epistaxis/hemoptysis since last visit. No adverse effects with meds. No other complaints. Patient denies fever, chills, cp, dyspnea, nausea, vomiting, night sweats, scalp tenderness, visual changes, delgadillo, bowel/bladder changes, weight changes or other complaints. Last visit supportive care, improved with medrol alternate 4mg AND 2mg every other day/taper if tolerated, see ortho s/p R THR, due for possible left rotator cuff tear repair~06/2023 (stress dose steroids), then may consider trial of dmards/kevzara/did discuss with patient, improved with celebrex/may take when off medrol, OFF prednisone due to adverse effects/bad mood/etc., see ortho, start gout friendly diet, improved with allopurinol, colchicine, see cardiology, start prn heat/ice/otc arthritis creams, low impact weightbearing exercise as tolerated, avoid aggravating triggers, 03/05/23:due for labs. Due for bmd. taking medrol 4tabs daily since last office visit. Interested with weaning off steroids. More Arm soreness when off steroids. Celebrex helps knee pain better than medrol. Only takes celebrex when off steroids. No recent increase in oral steroids. Taking allopurinol 100mg daily, hctz, plavix, colchicine, synthroid, lipitor, irbesartan. S/p R THR. Keloid on incision site. Slight edema. Has compression stockings. no gout, does routinely drink alcohol throughout the week. No GCA symptoms. Doing home PT exercises, off walker and cane. Mild leg edema/ swelling. Chronic current pain in left arm, R upper arm/bicep. Possible 06/2023 left rotator cuff tear repair vs joint replacement. Reports pain 3-4/10. Has minimal AM stiffness. COVID vaccine 06/04/20, 06/25/20, 04/11/21. Feels safe at home. Has enough food, supplies and medications. Overall mildly uncomfortable but happy with rheum care. No falls/fx/trauma/illness/oral sores/rash/hairloss/jaw pain/dysphagia/epistaxis/hemoptysis since last visit. No adverse effects with meds. No other complaints. Patient denies fever, chills, cp, dyspnea, nausea, vomiting, night sweats, scalp tenderness, visual changes, delgadillo, bowel/bladder changes, weight changes or other complaints. Last visit supportive care, improved with medrol 4mg daily/taper offer after right THR ~02/2023 (stress dose steroids), then may consider trial of dmards/kevzara/did discuss with patient, improved with celebrex/may take when off medrol, OFF prednisone due to adverse effects/bad mood/etc., see ortho, start gout friendly diet, improved with allopurinol, colchicine, see cardiology, start prn heat/ice/otc arthritis creams, low impact weightbearing exercise as tolerated, avoid aggravating triggers January 05, 2023 SUBJECTIVE Mr. Steven is a 62 year old male who presents for joint pain eval. 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 Treated with colchicine x 3years, more pain when off, then restarted 05/2013 S/p b/l TKR ~2012 bone on bone S/p L THR summer weakness arms, legs, sore and painful after golfing or walking, unable to lift gallon water Diagnosed with PMR summer 2022 Better with steroids last dose medrol yesterday More agitated with prednisone, severe headache Celexa 10mg daily summer 2022 Last 10/2022 steroid injection R hip with 1month relief Summer 2022 Fell off cart left shoulder rotator cuff tear, better with steroid injection 2-3weeks ago Mild relief with ultram Tried nabumetone and mobic in the past Taking celebrex x 10years, ok per cardiology Due right THR 02/13/23 No falls/fx/trauma/illness/oral sores/rash/hairloss/jaw pain/dysphagia/epistaxis (more content not included)...[facility]03-25-2024 Miscellaneous Notes* Telephone Encounter - Gordon Korin - 07/02/2023 9:16 AM EDT Called and spoke with patient. Patient scheduled to see Dr. Pineda this patient going t complete labs when arrives at appt * Telephone Encounter - Heladio Pineda MD - 06/30/2023 5:53 PM EDT Please Call patient if MyChart note not read to review results/released to My Chart if tests completed at [facility]: Normal bone mineral density. Mildly low magnesium- increase intake, care per primary care provider. Rest of labs normal. Please Recheck nonfasting inflammatory tests in this month (please link 04/06/23 labs), orders havebeen placed. Happy to further review and discuss at follow up visit. Continue rest of treatment plan per instructions at last office visit. Thank you. 06/28/23 bmd WITHIN THE EXPECTED RANGE FOR AGE Lumbar spine (L1, L2, L3, L4): 1.54 g/cm2, Z-score 2.3 Left Forearm, Distal 1/3 of Radius: 1.089 g/cm2, Z-score 1.5 TRABECULAR BONE ASSESSMENT TBS score: 1.412 Bone micro-architecture: Normal (>1.310) Outside 06/12/23 low mag 1.5;high glucose 117;normal cbc, rest of bmp; 04/18/23 in ED for chronic Afib. 03/05/23 normal esr 9, crp<0.3; documented in this encounter[facility]03-07-2024 Miscellaneous Notes* Telephone Encounter - Kamille Rosario RN - 06/14/2023 9:28 AM EST Pt calling in; states he is to have procedure with JBP today but is experiencing fevers, vomiting, diarrhea. EP project scheduler notified to call pt to cancel and reschedule. * Telephone Encounter - Georgia Harvey LPN - 06/14/2023 9:28 AM EST Called and spoke with pt, pt confirmed N/V/D and fever. Advised pt to call when symptoms resolve and will reschedule Pt stated he did miss Eliquis dose last night and no meds currently d/t vomiting. Will notify JBP documented in this encounterPro[facility]03-[facility]24 Telephone encounter Note* Telephone Encounter - aKmille Rosario RN - 06/14/2023 9:28 AM EST Pt calling in; states he is to have procedure with JBP today but is experiencing fevers, vomiting, diarrhea. EP project scheduler notified to call pt to cancel and reschedule. [facility]03-07-2024 Telephone encounter Note* Telephone Encounter - Georgia Harvey LPN - 06/14/2023 9:28 AM EST Called and spoke with pt, pt confirmed N/V/D and fever. Advised pt to call when symptoms resolve and will reschedule Pt stated he did miss Eliquis dose last night and no meds currently d/t vomiting. Will notify JBP [facility]03-05-2024 Miscellaneous Notes* Telephone Encounter - Bharti Milian RN - 06/12/2023 5:10 PM EST Called patient with JBP's response to start Magnesium Oxide 400 twice a day by mouth. Patient agreeable and wants RX sent to [facility]. Rx sent to sign. Has some at home and will start tonight. tkm ----- Message from Chhaya Whatley MD sent at 06/12/2023 4:40 PM EST ----- Please have patient start taking magnesium oxide 400 mg twice a day. Thank you Dirk documented in this encounterProMed[facility]03-05-2024 Telephone encounter Note* Telephone Encounter - Bharti Milian RN - 06/12/2023 5:10 PM EST Called patient with JBP's response to start Magnesium Oxide 400 twice a day by mouth. Patient agreeable and wants RX sent to [facility]. Rx sent to sign. Has some at home and will start tonight. tkm ----- Message from Chhaya Whatley MD sent at 06/12/2023 4:40 PM EST ----- Please have patient start taking magnesium oxide 400 mg twice a day. Thank you Dirk [facility]03-04-2024 Miscellaneous Notes* Telephone Encounter - Ambarsal Figueroa LPN - 06/11/2023 3:23 PM EST Images from the original note were not included. [facility] Cardiology: Cardioversion or DFT Testing Procedure: Cardioversion Physician: Dr. Dirk Whatley Date/Time of Procedure: 06/13 @ 1 pm Arrival Time: 12 pm Hospital: [facility] - Address: [address] [place] [address] Registration Location: [facility] at [address]tr[address], parking lot [address]3 PRE OP REQUIREMENTS Below MUST be completed prior to your procedure or it may result in delay or cancellation [] Pre op testing: NONE [x] Pre op labs: Draw pre op labs any time between and at any [facility] Lab, no paper orders are required, your orders are already in the system. NO FASTING REQUIRED Medication instructions: Hold vitamins and supplements the morning of your procedure. [x] Take all your medications as prescribed [x] Continue your blood thinner, DO NOT HOLD Fasting instructions: [x] No FOOD after midnight, the night before your procedure. It's ok for clear liquids (water, tea,apple juice, jello, popsicles, broth) 6 hours prior to your procedure, then nothing at all after 7am Other Instructions: [x] Must have a inventory associate and driver as you will be unable to drive following the procedure IMPORTANT INFORMATION Notify the EP Surgery office of any illness, infection or COVID symptoms or a COVID positive resultimmediately at [phone] If you take a blood thinner, unless instructed otherwise, please continue to take as prescribed. Ifyou miss any doses, please call the EP Surgery office You may go home the same day of your procedure. Please prepare an overnight bag in case you do stayovernight and bring any medications in their original prescription bottle(s) or medical supplies that you may need Please bring your most recent insurance card(s), photo ID, and current list of medications Please be aware, procedures are subject to date/time changes due to unforeseen schedule changes or emergencies at the hospital [facility] currently allows up to two visitors at the hospital for your procedure. All pre op requirements must be completed prior to your procedure or your procedure may be delayed or canceled. If you were unable to complete any or all of the pre op requirements, please call the EP Surgery office as soon as possible Please follow these instructions provided to you by the EP Surgery nurses. [facility] [employer] instructions can be incorrect and provide the wrong information about your procedure. If you have any questions or concerns about preparing for your procedure, please call the EP Surgery office at [phone] For additional questions and to schedule any follow up appointments please call the main [facility] Cardiology office at [phone] documented in this encounterProMed[facility]03-04-2024 Telephone encounter Note* Telephone Encounter - Ambar Figueroa LPN - 06/11/2023 3:23 PM EST Images from the original note were not included. [facility] Cardiology: Cardioversion or DFT Testing Procedure: Cardioversion Physician: Dr. Dirk Whatley Date/Time of Procedure: 06/13 @ 1 pm Arrival Time: 12 pm Hospital: [facility] - Address: [address] [place] [address] Registration Location: [facility] at [address], parking lot [address]3 PRE OP REQUIREMENTS Below MUST be completed prior to your procedure or it may result in delay or cancellation [] Pre op testing: NONE [x] Pre op labs: Draw pre op labs any time between and Thursday at any [facility] Lab, no paper orders are required, your orders are already in the system. NO FASTING REQUIRED Medication instructions: Hold vitamins and supplements the morning of your procedure. [x] Take all your medications as prescribed [x] Continue your blood thinner, DO NOT HOLD Fasting instructions: [x] No FOOD after midnight, the night before your procedure. It's ok for clear liquids (water, tea,apple juice, jello, popsicles, broth) 6 hours prior to your procedure, then nothing at all after 7am Other Instructions: [x] Must have a inventory associate and driver as you will be unable to drive following the procedure IMPORTANT INFORMATION Notify the EP Surgery office of any illness, infection or COVID symptoms or a COVID positive resultimmediately at [phone] If you take a blood thinner, unless instructed otherwise, please continue to take as prescribed. Ifyou miss any doses, please call the EP Surgery office You may go home the same day of your procedure. Please prepare an overnight bag in case you do stayovernight and bring any medications in their original prescription bottle(s) or medical supplies that you may need Please bring your most recent insurance card(s), photo ID, and current list of medications Please be aware, procedures are subject to date/time changes due to unforeseen schedule changes or emergencies at the hospital [facility] currently allows up to two visitors at the hospital for your procedure. All pre op requirements must be completed prior to your procedure or your procedure may be delayed or canceled. If you were unable to complete any or all of the pre op requirements, please call the EP Surgery office as soon as possible Please follow these instructions provided to you by the EP Surgery nurses. [facility] [employer] instructions can be incorrect and provide the wrong information about your procedure. If you have any questions or concerns about preparing for your procedure, please call the EP Surgery office at [phone] For additional questions and to schedule any follow up appointments please call the main [facility] Cardiology office at [phone] [facility] [employer] [phone] Miscellaneous Notes* Telephone Encounter - Melinda Gomes CMA - 06/01/2023 3:32 PM EST Called patient to remind them to bring their most current copy of their medication list with them to their appt. Patient verbalizes understanding. documented in this encounterRockingham [facility] Hospitalmygola02-23-2024 Telephone encounter Note* Telephone Encounter - Melinda Gomes CMA - 06/01/2023 3:32 PM EST Called patient to remind them to bring their most current copy of their medication list with them to their appt. Patient verbalizes understanding. [facility] Evaluation note* Encounter Date Diagnosis Assessment Notes Treatment Notes Treatment Clinical Notes May, Acute pain of left knee (ICD-10 - M25.562) [employer] Other 02-12-2024 Evaluation note* Encounter Date Diagnosis Assessment Notes Treatment Notes Treatment Clinical Notes May, Pain due to internal orthopedic prosthetic devices, implants and grafts, initial encounter (ICD-10 - T84.84XA) May, Presence of left artificial knee joint (ICD-10 - Z96.652) X-rays reviewed with patient, show satisfactory position of left total knee hardware. Spoke with Dr. Mendez via telephone regarding patient's sudden onset of severe pain in left knee and calf, plan of care established. With patient's reports of pain and exam we will need to rule out left TKA infection versus possible DVT. Left knee aspirated in office and Synov[employer] sent. Due to patient's left calf pain with positive Homans' sign sending to hospital for stat ultrasound to rule out DVT. We will also order lab work to assess for infection patient will have this drawn after ultrasound is completed. Instructed patient he may use pain medication from previous hip surgery as previously instructed for pain. All questions and concerns addressed. Examination and assessment of this patient was performed by Melinda Verduzco NP and patient will continue with the treatment plan per Dr. Mendez, who initiated this treatment plan. Dr. Daniel is present in the office today and providing supervision. May, Pain of left calf (ICD-10 - M79.662) [employer] Other 02-07-2024 Evaluation note* Encounter Date Diagnosis Assessment Notes Treatment Notes Treatment Clinical Notes May, Aftercare following joint replacement surgery (ICD-10 - Z47.1) May, Presence of right artificial hip joint (ICD-10 - Z96.641) May, S/P total left hip arthroplasty (ICD-10 - Z96.642) May, Other [facility] at [facility] on 02/13/2023 At this point he is doing really well with the actual hip. We talked about being more aggressive and going to surgery to close this wound but the patient was recently diagnosed with atrial fibrillation. In my discussions with anesthesiology this would need to be worked up and evaluated by the golf club repairer before considering a surgery unless it was an emergency. At this point I do not feel it is actively infected so I do not feel it is a emergent surgery. He does see [facility] in [place] on 06/04/2023. Our plan at this time is to continue with the wound VAC with home health nursing who will come back on Sunday to put the wound VAC back on. I will then plan to see him in about 3 weeks which would be a day or 2 after he has seen his golf club repairer. At that point in time we will make a decision on the wound. If it is continuing to heal up and closed with the assistance of the wound VAC that is fantastic but if it still needs help then we will be aggressive at that time as long as his golf club repairer allows. Discussed post-op dental prophylaxis. Shared decision made to continue prophylactic antibiotics indefinitely. [employer] Other 01-29-2024 Evaluation note* Encounter Date Diagnosis Assessment Notes Treatment Notes Treatment Clinical Notes Apr, Traumatic complete tear of left rotator cuff, initial encounter (ICD-10 - S46.012A) He continues to have pain in his left shoulder. He was scheduled for a left shoulder arthroscopy with cuff repair, bicep tenodesis, with possible superior capsular reconstruction, however had to cancel due to a new onset of A-fib. We discussed an injection at this time and patient wishes to proceed. Under sterile condition, 1 cc of Kenalog/ 4 cc bupivacaine were injected into the left subacromial space. Patient tolerated the procedure well. We will order formal therapy for him to start before surgery as he still plans to have surgery hopefully in January 2024. He will follow up sometime in November to further discuss surgery. [employer] Other 01-24-2024 Evaluation note* Encounter Date Diagnosis Assessment Notes Treatment Notes Treatment Clinical Notes Apr, ASHD (arteriosclerotic heart disease) (ICD-10 - I25.10) This patient is stable without activity related CP, dyspnea or lightheadedness. They are instructed to continue exercise and AHA diet plan. Continue secondary prevention measures. Apr, Persistent atrial fibrillation (ICD-10 - I48.19) This patient is rate controlled. This patient is anticoagulated to prevent thromboembolic events. They are maintaining regular scheduled appts with their golf club repairer. He understands that he must have surgery postponed for 4 wks for the new onset AFib. and postpone for 4-7 wks for COVID infection. Apr, Hypomagnesemia (ICD-10 - E83.42) Replace Magnesium w/ supplements Decrease Alcohol use. Recheck prior to any restortation of sinus rhythm [employer] Other 01-10-2024 NoteXR CHEST 1 VW Procedure: Chest x-ray performed Number of views:AP portable erect History:Palpitations, A. fib Comparison:07/18/2014 Findings: The heart and lungs show no acute findings, and the mediastinum and yue are grossly negative . There is a median sternotomy Impression: No acute change. Finalized by Sandra Barba DO on 04/18/2023 1:14 [facility] 04-18-2023 Miscellaneous Notes* Telephone Encounter - Florence Fermin RN - 04/18/2023 9:43 AM EST Received p/c from pt. Pt has home health since S/P hip replacement 02/2023. Having problems w/ incision not healing. Relates at visit today HH nurse was taking BP/HR and HR was irregular. HH nurse gone now. Pt unsureof pulse rate but states that BP 130/82. Nurse had an Iwatch and put on pt and told pt was in Afib but then left and told him to call his golf club repairer. Pt not dyspneic. Does have some dizzy symptoms. Pt not on any blood thinners. Instructed to go to ER for evaluation documented in [facility] encounterRock[facility] Hospitalmygola[facility]-10-[facility] Telephone encounter Note* Telephone Encounter - Florence Fermin RN - 04/18/2023 9:43 AM EST Received p/c from pt. Pt has home health since S/P hip replacement 02/2023. Having problems w/ incision not healing. Relates at visit today HH nurse was taking BP/HR and HR was irregular. nurse gone now. Pt unsureof pulse rate but states that BP 130/82. Nurse had an Iwatch and put on pt and told pt was in Afib but then left and told him to call his golf club repairer. Pt not dyspneic. Does have some dizzy symptoms. Pt not on any blood thinners. Instructed to go to ER for evaluation [facility] [id number] Evaluation note* Encounter Date Diagnosis Assessment Notes Treatment Notes Treatment Clinical Notes Apr, COVID-19 (ICD-10 - U07.1) Instructed to use Robitussin or Mucinex for cough, saline or Flonase NS for congestion, Tylenol for pain and fever. Self isolate at home. - Cannot work - avoid contact with others - avoid pets - wipe counters, door knobs if touched - if can't avoid leaving home, must wear mask to protect others - need to stay isolated for 10 days from onset of symptoms - to discontinue isolation must be 5 days AND must be without fever for 24 hours AND symptoms must be improving. Always wear a mask in public places for complete 10 days Apr, ASHD (arteriosclerotic heart disease) (ICD-10 - I25.10) Increases risk for prolonged, severe disease. Any CP or dyspnea, instructed to go to ER [employer] Other 01-03-2024 Evaluation note* Encounter Date Diagnosis Assessment Notes Treatment Notes Treatment Clinical Notes Apr, Aftercare following joint replacement surgery (ICD-10 - Z47.1) Apr, Presence of right artificial hip joint (ICD-10 - Z96.641) Apr, S/P total left hip arthroplasty (ICD-10 - Z96.642) Apr, Other [facility] 2022 Overall the patient is doing fantastic after his right total hip however were struggling to get his incision to completely heal. We did discuss how the steroids he has been on preoperatively for this right hip has likely contributed to his tissues taking longer to heal. At this point time I have no concerns for infection. I did reach out to wound care nurse and spoke with them in regards to recommendations for a wound care plan. Cleanse with Vashe E cleanser Apply medical honey gel coated 2 x 2 or strip gauze to the wound bed Cover with gauze and Medipore tape or silicone bordered foam Change 3 times weekly We will get a wound care nurse out starting on Sunday of this week. In the meantime, I did use 2 silver nitrate sticks in the office today and closed the area with a Steri-Strip. Patient tolerated this well. I will plan to see him back in the office in 2 weeks. He understands that if he notes any redness or drainage or worsening of the area that he will call us to get in sooner. [employer] Other 12-28-2023 Evaluation note* Encounter Date Diagnosis Assessment Notes Treatment Notes Treatment Clinical Notes Mar, Acute blood loss anemia (ICD-10 - D62) Monitor for s/s GIB. Recheck H/H Mar, ASHD (arteriosclerot ic heart disease) (ICD-10 - I25.10) This patient is stable without activity related CP, dyspnea or palpitations. \ Instructed to go to ER for CP, dyspnea or worsening lightheadedness. Mar, Gastroesophageal reflux disease with esophagitis without hemorrhage (ICD-10 - K21.00) Avoid lying flat after eating. Avoid eating 2 hours prior to bedtime. Smaller, frequent meals may be better tolerated.Weight loss if overweight.PPI with any heartburn.Monitor for dysphagia. Mar, Orthostatic hypotension (ICD-10 - I95.1) Push fluids, encouraged to drink electrolyte replacement fluid. Avoid strenuous activity, rest. Recheck BP tomorrow. Hold Irbesartan for now. Weaning steroids slowly and acute blood loss anemia are contributing [employer] Other 12-21-2023 Evaluation note* Encounter Date Diagnosis Assessment Notes Treatment Notes Treatment Clinical Notes Mar, Aftercare following joint replacement surgery (ICD-10 - Z47.1) Mar, Presence of right artificial hip joint (ICD-10 - Z96.641) Mar, S/P total left hip arthroplasty (ICD-10 - Z96.642) Mar, Other [facility] on 02/13/2023 Overall he is doing great from a total hip replacement. His wounds little slow to heal. As a result, the skin was prepped sterilely with ChloraPrep and then a 3-0 nylon horizontal mattress stitch was placed in the opening at the proximal third of the incision. Patient tolerated the procedure well. I will plan to see him back in the office in 2 weeks. In the meantime we will start him on 1 week of doxycycline 100 mg twice daily. Patient may continue increasing activities as tolerated. Continue taking rijz-azr-zvurhto anti-inflammatorie s as needed for assistance with swelling and pain associated with the operative extremity. [employer] Other 12-07-2023 Evaluation note* Encounter Date Diagnosis Assessment Notes Treatment Notes Treatment Clinical Notes Mar, Presence of right artificial hip joint (ICD-10 - Z96.641) Mar, Status post total replacement 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 (ICD-10 - Z96.641) Physical examination of the right total hip incision wound was performed today. Incision is healing well, no signs of infection. Patient will f/u with Dr. Mendez in 2 weeks. Encourage patient to gently massage the area to help break up the scar tissue. Mar, Other Examination and assessment of this patient was performed by Melinda Verduzco NP and patient will continue with the treatment plan per Dr Mendez, who initiated this treatment plan. Dr. Montesinos is present in the office today and providing supervision. [employer] Other 12-07-2023 Evaluation note* Encounter Date Diagnosis Assessment Notes Treatment Notes Treatment Clinical Notes Mar, Traumatic complete tear of left rotator cuff, initial encounter (ICD-10 - S46.012A) We discussed conservative management vs surgical intervention. The patient wishes to proceed with surgery in the form of shoulder arthroscopy with cuff repair, bicep tenodesis, with possible superior capsular reconstruction. We discussed the risks, benefits, and alternatives to surgery in general, including the potential outcomes with foregoing treatment altogether. The risks include, but are not limited to, the risk of anesthesia up to and including , infection, bleeding, tendon damage, nerve damage, vascular damage, stiffness, weakness, loss of range of motion, arthrofibrosis, failure to alleviate symptoms, worsening of symptoms, continued pain, continued mechanical symptoms, arthritic pain, post traumatic arthritis, wound healing problems, formation of cutaneous scars secondary to surgical incisions, deep venous thrombosis, pulmonary embolism, reflex sympathetic dystrophy, unforeseen complications and the need for further surgery. The specific risks inherent to shoulder surgery were discussed further. These include, but are not limited to: failure of any repair (labrum, biceps, rotator cuff), symptomatic hardware, chondrolysis, fracture, instability (glenohumeral or acromioclavicular), unforeseen complications and the need for further or revision surgery. Management of any biceps pathology was also addressed. If the long head of the biceps is substantially torn, tenotomy versus tenodesis may be performed. Specific risks of biceps cosmetic deformity and/or spasm were discussed. In the event of an irreparable rotator cuff tear, partial repair/reconstruction with dermal allograft augmentation will be considered. We discussed in detail the rehabilitation associated with this procedure, in terms of frequency and duration. We discussed the use of the sling postoperatively, and the fact that driving a motor vehicle is not advisable while in the sling. The importance of proper rehabilitation in the overall outcome of the surgery was emphasized. The amount of time needed off from activities (work, school, sports, exercise, and leisure activity) was discussed. The patient understands that in no way does surgical intervention guarantee return to activities (athletic, work, leisure, etc.) at the pre-injury level. Guarantees were neither stated nor implied. The patient understands and has appropriate expectations. We did discuss the risks and benefits of forgoing treatment altogether, and living with symptoms as they are. The patient understood and wishes to proceed. Informed consent was obtained, questions were entertained and answered to the best of my ability. [employer] Other 12-04-2023 Evaluation note* Encounter Date Diagnosis Assessment Notes Treatment Notes Treatment Clinical Notes Mar, Primary osteoarthritis 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 (ICD-10 - M16.11) [facility] [employer] Other 11-29-2023 Miscellaneous Notes* Telephone Encounter - Kerry Andersen RN - 03/07/2023 5:25 PM EST Pt identified by name and Pt notified of below message and verbalizes understanding. Patient wanted to remind you he is on Allopurinol not cholchicine * Telephone Encounter - Heladio Pineda MD - 03/07/2023 4:25 PM EST Please Call patient if MyChart note not read to review results/released to My Chart if tests completed at [facility]: normal labs and no inflammation. Continue same vitamin D intake with food. Take medrol alternate 4mg and 2mg every other day. Notify office if medication change is not tolerated. Recheck nonfasting labs in 1month, orders have been placed. Happy to further review and discuss at follow up visit. Continue rest of treatment plan per instructions at last office visit. Thank you. 03/05/23 normal esr 9, crp<0.3; [facility]* Encounter Date Diagnosis Assessment Notes Treatment Notes Treatment Clinical Notes Feb, Aftercare following joint replacement surgery (ICD-10 - Z47.1) Feb, Presence of right artificial hip joint (ICD-10 - Z96.641) Feb, S/P total left hip arthroplasty (ICD-10 - Z96.642) Feb, Other [facility] 2022 Patient is still progressing well from his total hip arthroplasty and does not have any pain. However he still has the postoperative seroma. I again explained to him that continuing with the compression underwear is the best way to allow his body to reabsorb some of the fluid. In regards to his incision, we did place some more Steri-Strips today. I will start him prophylactically on doxycycline 100 mg twice daily x 14 days. He is coming in next to see Dr. Montesinos in regards to his left shoulder. At that time we will poker heads in and check on his incision. Will base any further follow-up appointments based on that incision check. [employer] Other 11-27-2023 History of Present illness Narrative* Heladio Pineda MD - 03/05/2023 2:00 PM EST Face to face fur for joint pain/ osteoarthritis/gout/pseudogout/ rotator cuff tear/PMR/low vitamin D Today's visit 03/05/23:due for labs. Due for bmd. taking medrol 4tabs daily since last office visit. Interested with weaning off steroids. More Arm soreness when off steroids. Celebrex helps knee pain better than medrol. Only takes celebrex when off steroids. No recent increase in oral steroids. Taking allopurinol 100mg daily, hctz, plavix, colchicine, synthroid, lipitor, irbesartan. S/p R THR. Keloid on incision site. Slight edema. Has compression stockings. no gout, does routinely drink alcohol throughout the week. No GCA symptoms. Doing home PT exercises, off walker and cane. Mild leg edema/ swelling. Chronic current pain in left arm, R upper arm/bicep. Possible 06/2023 left rotator cuff tear repair vs joint replacement. Reports pain 3-07/17. Has minimal AM stiffness. COVID vaccine 06/04/20, 06/25/20, 04/11/21. Feels safe at home. Has enough food, supplies and medications. Overall mildly uncomfortable but happy with rheum care. No falls/fx/trauma/illness/oral sores/rash/hairloss/jaw pain/dysphagia/epistaxis/hemoptysis since last visit. No adverse effects with meds. No other complaints.Patient denies fever, chills, cp, dyspnea, nausea, vomiting, night sweats, scalp tenderness, visualchanges, delgadillo, bowel/bladder changes, weight changes or other complaints. Last visit supportive care,improved with medrol 4mg daily/taper offer after right THR ~02/2023 (stress dose steroids), then may consider trial of dmards/kevzara/did discuss with patient, improved with celebrex/may take when off medrol, OFF prednisone due to adverse effects/bad mood/etc., see ortho, start gout friendly diet, improved with allopurinol, colchicine, see cardiology, start prn heat/ice/otc arthritis creams, low impact weightbearing exercise as tolerated, avoid aggravating triggers January 05, 2023 SUBJECTIVE Mr. Steven is a 62 year old male who presents for joint pain eval. 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 Treated with colchicine x 3years, more pain when off, then restarted 05/2013 S/p b/l TKR ~2012 bone on bone S/p L THR summer weakness arms, legs, sore and painful after golfing or walking, unable to lift gallon water Diagnosed with PMR summer 2022 Better with steroids last dose medrol yesterday More agitated with prednisone, severe headache Celexa 10mg daily summer 2022 Last 10/2022 steroid injection R hip with 1month relief Summer 2022 Fell off cart left shoulder rotator cuff tear, better with steroid injection 2-3weeks ago Mild relief with ultram Tried nabumetone and mobic in the past Taking celebrex x 10years, ok per cardiology Due right THR 02/13/23 No falls/fx/trauma/illness/oral sores/rash/hairloss/jaw pain/dysphagia/epistaxis/hemoptysis. No adverse effects with meds. No other complaints. Patient denies fever, chills, cp, dyspnea, nausea, vomiting, night sweats, scalp tenderness, visual changes, delgadillo, bowel/bladder changes, weight changes or other complaints. COMPLETE REVIEW OF SYSTEMS: RHEUM. ROS: Joint pain: yes L>R shoulder, L>R UEs, LEs, R hip Joint swelling:MCPs for years, L knee Am stiffness: yes all day Low back pain: no Dactylitis: no H/o precedent/frequent infection(s): no Enthesopathy/Clawson's/heel/plantar tenderness: no Skin thickening, psoriasis, photosensitivity, purpura: no Nail changes: no Alpecia, patchy: no Eye inflammation: glasses SICCA: no Oral/nasal/genital ulcers: no GI problems-diarrhea/bleeding/IBD/Gluten intolerence/Dysphagia: occasionally gerd Raynaud's phenomenon/digital ulcers: no Organ inv-Serositis: no Lung disease/ILD: no Myopathy/proximal muscle weakness: no Abnormal Urine or urethritis: no Renal/liver disease: as above FRONT EDGER/PNS/sz/cva/cancer disease: no HEME-Cytopenias/LAD/Clots: no Fevers: no Fatigue: yes, sleeps 7-9 hrs/night, up at night to urinate PMR/GCA ROS: yes, see above Patient denies history of Psoriasis, Rheumatic Fever, PUD, Liver Disease, Hepatitis , Kidney Disease, Kidney Stones, DM, HTN, CAD, Dyslipidemia, PAD, Sinusitis, Asthma, TB infection or exposure, Pneumonias, Anemia, Seizures, Stroke, MS, Clots, Cancer, Transfusions, Tattoos , and Alcohol dependency. Other ROS:The remainder of the review of systems is negative. All other reviewed and negative other than HPI. 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 Height Loss: 1/2 IMMUNIZATION HX: Pneumovax yes Flu shot yes Tetanus yes Last PPD: negative, maternal GM/mother had TB; PAST MEDICAL HISTORY: PMH FER/waiting CPAP, BPH, CAD, thyroid disease, 1st great toe/start alloupurinol ~2007, left index finger tailgate dumptruck 1980, Afib temporarily,S/p b/l TKR ~2012 bone on bone, S/p L THR 06/2021, 2012 s/p CABG 4vessels (44y/o 10cardiac stents), s/p appy, PAST MEDICAL HISTORY Diagnosis Date CAD (coronary artery disease) Gout Hypothyroid PAST SURGICAL HISTORY: S/p b/l TKR ~2012 bone on bone, S/p L THR 06/2021, 2012 s/p CABG 4vessels (44y/o 10cardiac stents), s/p appy, PAST SURGICAL HISTORY Procedure Laterality Date BACK SURGERY HX KNEE ARTHROSCOPY/SURGERY Left knee, 1991 and 2008 for meniscal repair FAMILY HISTORY: brother-brain aneurysm;mother- pacemaker;maternal GM/mother had TB;1992 L4-5 and SIsurgery from construction injury, no hardware;father CAD;brother- cancer; FAMILY HISTORY Problem Relation Age of Onset Stroke Mother Lipids Father Heart Father SOCIAL HISTORY: Social History Tobacco Use Smoking status: Never Substance Use Topics Alcohol use: Yes Alcohol/week: 12.0 standard drinks of alcohol Types: 12 Cans of Beer (12oz) per week 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 Moderate right-sided and mild left-sided third MCP osteoarthritis . Degenerative changes of the right thumb IP joint. Advanced triscaphe and joint space narrowing bilaterally. Cystic change within the distal pole of the scaphoid on the left likely degenerative.Nonspecific cystic change along the radial aspect of the third proximal phalanx head on the left and right Component Latest Ref Rng & Units 10/29/2013 WSR 0 - 10 mm/hr 6 CRP 0.0 - 1.0 mg/dL 0.5 CCP Antibody, IgG <20 Units <15 Rheumatoid Factor <20 IU/mL <10 Magnesium 1.7 - 2.6 mg/dL 2.1 PTH, Intact 15 - 65 pg/mL 49 02/2010 knee xrays-Mild medial compartment narrowing bilaterally with tiny marginal osteophytes. Small medial compartment and patellar osteophytes bilaterally. 02/2010 hand xrays-Marked triscaphe joint space narrowing bilaterally with jnyh-zx-[id number] contact andsubchondral sclerosis. Mild narrowing of the right third digit MCP joint with small osteophytes. Tiny osteophytes also noted in the left third digit MCP joint. Tiny osteophytes are also seen at the several other PIP and DIP joints. PHYSICAL EXAM:reviewed vitals BP 124/81 Pulse 110 Wt 106.6 kg (235 lb) BMI 33.24 kg/m General Appearance: WD/WN, NAD. Appropriate grooming. Very pleasant. Ambulates fair without assistance or without assistive devices, able to move better s/p b/l THR, here with SKIN: No rash, no psoriasis, no purpura, no ulcers, no skin thickening/tightness, no telangiectasias. HEENT: No patchy alopecia, normal temporal artery pulsations, non-tender, scalp non-tender, no conjunctival injection or icterus, no oral ulcers, no thrush, normal nasal mucosa, no sinus tenderness, normal TM's. yes glasses, fair dentition NECK: neck supple w/o masses, no thyromegaly, no LAD. LUNGS: CTA, Good respiratory effort. HEART: RRR, - m/r/g ABDOMEN: soft, non-tender, no HSM/masses/bruits. EXTREMITIES: Adequate pulses b/l UE ; No clubbing,discoloration,sclerodactyly, periungual erythema,digital ulcers, nail pitting, edema, varicosities. MUSCULOSK: s/p R THR, s/p L THR, s/p b/l TKR No joint deformities, no rheumatoid nodules, calcifications or tophi. No SI tenderness, no ruth's tenderness, no heel/plantar tenderness, lumbar flexion full, negative Rosette's test, tinel's and phil tests Swoll JTS:MCPs Tend. JTS:L>R shoulder, R>U UEs, LEs, improved R hip, decreased range of motion due to pain; no warmth/erythema No clinical synovitis in the DIP's, PIP's, MCP's, wrists, elbows, shoulders, knees, ankles, midfoot, or toes. no knee effusions bilateral. Shoulder exam:see above; no warmth/erythema Yes Hip rom with pain LIMITATION of Motion of Joints: yes Thoracic/Lumbar Spine: No percussion tenderness SLR:negative No instability in any upper or lower extremity joints. NEURO: Mental Status: alert and oriented x 3, anxious, CN II - XII grossly intact Motor: 5/5 proximally and distally b/l Sensory: intact to fine touch TENDER POINTS: 0/18 Gait: see above Toe and heel walk normal. Tone: normal IMPRESSION/DIAGNOSIS:03/05/23 M35.3 PMR (polymyalgia rheumatica) (HCC) (primary encounter diagnosis) R70.0 Elevated sed rate R79.82 Elevated C-reactive protein (CRP) M1A.09X0 Idiopathic chronic gout of multiple sites without tophus M11.89 Pseudogout involving multiple joints M15.3 Secondary osteoarthritis of multiple sites M12.812 Rotator cuff arthropathy of left shoulder M25.551 Pain in right hip Z79.52 halfway current use of 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 R76.8 CHENCHO positive M25.561, M25.562, G89.29 Chronic pain of both knees M79.641, M79.642 Bilateral hand pain Mr. 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 Treated with colchicine x 3years, more pain when off, then restarted 05/2013 S/p b/l TKR ~2012 bone on bone S/p L THR summer weakness arms, legs, sore and painful after golfing or walking, unable to lift gallon water Diagnosed with PMR summer 2022 Better with steroids last dose medrol yesterday More agitated with prednisone, severe headache Celexa 10mg daily summer 2022 Last 10/2022 steroid injection R hip with 1month relief Summer 2022 Fell off cart left shoulder rotator cuff tear, better with steroid injection 2-3weeks ago Mild relief with ultram Tried nabumetone and mobic in the past Taking celebrex x 10years, ok per cardiology Due right THR 02/13/23 Has findings of secondary osteoarthritis of multiple joints, left rotator cuff tear arthropathy, idiopathic gout of multiple joints, pseudogout of multiple joints, PMR, here due for labs. Due for bmd. taking medrol 4tabs daily since last office visit. Interested with weaning off steroids. More Arm soreness when off steroids. Celebrex helps knee pain better than medrol. Only takes celebrex when off steroids. No recent increase in oral steroids. Taking allopurinol 100mg daily, hctz, plavix, colchicine, synthroid, lipitor, irbesartan. S/p R THR. Keloid on incision site. Slight edema. Has compression stockings. no gout, does routinely drink alcohol throughout the week. No GCA symptoms. Doing home PT exercises, off walker and cane. Mild leg edema/ swelling. Chronic current pain in left arm, R upper arm/bicep. Possible 06/2023 left rotator cuff tear repair vs joint replacement. Reports pain 3-07/17. Has minimal AM stiffness. COVID vaccine 06/04/20, 06/25/20, 04/11/21. Feels safe at home. Has enough food, supplies and medications. Overall mildly uncomfortable but happy with rheum care. = supportive care, improved with medrol alternate 4mg & 2mg every other day/taper if tolerated, see ortho s/p R THR, due for possible left rotator cuff tear repair~06/2023 (stress dose steroids), then may consider trial of dmards/kevzara/did discuss with patient, improved with celebrex/may take when off medrol, OFF prednisone due to adverse effects/bad mood/etc., see ortho, start gout friendly diet, improved with allopurinol, colchicine, see cardiology, start prn heat/ice/otc arthritis creams,low impact weightbearing exercise as tolerated, avoid aggravating triggers, answered all questions and concerns, patient voiced understanding. RECOMMENDATION/PLAN: Reviewed all available labs/tests with patient Provided printed info 03/05/23 check nonfasting today and in 1month Modified 03/05/23 HATTIE 0, pain 30-40%;January 05, 2023 HAQ0, pain 30-50%; May apply over the counter arthritis creams and or patches (biofreeze, icy hot, asper cream, tiger balm, capsacin, lidocaine, salon pas, voltaren gel, etc.) or over the counter pain patches to painful joints up to four times a day. Avoid contact with eyes. May take Extra Strength acetaminophen 500mg every 4-6hours for joint pain. Do not exceed 3000mg /day. Decrease stress Improve sleep May apply heat/ice 20minutes on and off to areas of pain Avoid aggravating triggers If needed, may take Calcium 1200mg daily with food in DIVIDED doses If labs normal, take Vitamin D 4000 International Units daily with food Medrol daily with food Recommend goal: exercising 30minutes 3-5 times a week Recommend weight-bearing aerobic exercises such as walking, dancing, low impact aerobics, elliptical machine, stair climbing, gardening, biking, water exercises flexibility exercises and strength training exercises Recommend avoiding high impact exercises such as jumping, running or jogging or movements where youbend forward and twist the waist, for instance- touching your toes, sit-ups, using row machine detention pain recommendations per primary care provider/pain clinic Nonfasting labs as scheduled Additional time spent with patient on healthy lifestyle, healthy food and anti- inflammatory diet (with emphasis on whole plant based diet), avoiding refined carbs/sugars and processed food, appropriate exercise (stretching, cardio and strengthening), good sleep hygiene, stress mgt, and supplementing vital deficiencies and maintaining healthy wt and BMI. Additional information provided with references and educational information. Bone Health Recommendations: -Bone Density: After age 70 yrs, sooner if new clinical risk factors, or systemic steroid use of 3 months or more. -Vitamin D supplementation recommended, optimal dose is the dose necessary to achieve Vitamin D 25-OH blood level in range of 40-60 ng/mL. -Recommended daily dose of calcium: 1000-1200mg total a day in divided doses. Calcium from dietary sources, if not sufficient, or if with h/o calcium nephrolithiasis would recommend Calcium Citrate supplement, as it is recommended to avoid calcium carbonate products, which as main dietary calcium source. The after visit summary has information on dietary calcium and instructions on reading calcium label and converting the %DV to mg. -Regular weight-bearing and muscle-strengthening exercise -Avoidance of tobacco smoking, excessive alcohol intake and excessive caffeine intake. -Fall and fracture precautions -Continued regular dental follow up visits and good dental/gum care Stressed the importance of following up with PCP and specialists for his/her chronic diseases, health, CV, and cancer screening and continued care. Will follow disease activity/progression and adjusttherapeutic regimen to disease activity and severity. Discussed medication dosage, usage, goals of therapy, and side effects. Available test results were reviewed Additional time spent with the patient to discuss their questions. Additional time spent with the patient devoted to discussing treatment strategy, planning, and implementation. Discussed findings, impression and plan with patient. Patient understands above plan; questions asked and answered. Patient agrees to plan as noted above. Total time spent on this visit, with more than 50% of time spent via video & audio (virtual) orphone or face to face with patient, in consultation, and in addition to Counseling and Coordinationof Care, explanation of diagnosis, and planning of further management; I spent a total of 30 minutes on the date of the service during phone/virtual or office visit with an additional 10-20 minutes which included preparing to see the patient via video & audio (virtual) or phone or [id number] patient care, completing clinical documentation, obtaining and/or reviewing separately obtained history, review all available records, performing a medically appropriate examination, counseling and educating the patient/family/caregiver, ordering medications, tests, or procedures, communicating with other HCPs (not separately reported), independently interpreting results (not separately reported), communicating results to the patient/family/caregiver and care coordination (not separately reported) Follow up 6months, earlier if needed Recommendations to share with referring physician/Primary care physician : Dear Dr.Benjamin Jackie Brower, DO : I had the pleasure of seeing your patient, Esme Steven. I have enclosed a copy of my clinic note with my assessment and recommendations for this patient. Recommendations for your consideration as you deem necessary: -Continuous follow up with Primary care physician for cardiovascular disease prevention, for age appropriate cancer screening and routine health maintenance and wellness, and infection precautions and age appropriate immunization recommended. Thank you for allowing me to participate in the care of your patient. Heladio Pineda MD I will relay my findings and recommendations to the physician requesting the consult by letter/electronic shared medical records. cc Coleman Brower DO documented in this encounterHock[facility]11-[facility] NoteHNO ID: [id number] Author: Heladio Pineda MD Service: ? Author Type: Physician Type: Progress Notes Filed: 03/05/2023 3:32 PM Note Text: Face to face fur for joint pain/ osteoarthritis/gout/pseudogout/ rotator cuff tear/PMR/low vitamin D Today's visit 03/05/23:due for labs. Due for bmd. taking medrol 4tabs daily since last office visit. Interested with weaning off steroids. More Arm soreness when off steroids. Celebrex helps knee pain better than medrol. Only takes celebrex when off steroids. No recent increase in oral steroids. Taking allopurinol 100mg daily, hctz, plavix, colchicine, synthroid, lipitor, irbesartan. S/p R THR. Keloid on incision site. Slight edema. Has compression stockings. no gout, does routinely drink alcohol throughout the week. No GCA symptoms. Doing home PT exercises, off walker and cane. Mild leg edema/ swelling. Chronic current pain in left arm, R upper arm/bicep. Possible 06/2023 left rotator cuff tear repair vs joint replacement. Reports pain 3-07/17. Has minimal AM stiffness. COVID vaccine 06/04/20, 06/25/20, 04/11/21. Feels safe at home. Has enough food, supplies and medications. Overall mildly uncomfortable but happy with rheum care. No falls/fx/trauma/illness/oral sores/rash/hairloss/jaw pain/dysphagia/epistaxis/hemoptysis since last visit. No adverse effects with meds. No other complaints. Patient denies fever, chills, cp, dyspnea, nausea, vomiting, night sweats, scalp tenderness, visual changes, delgadillo, bowel/bladder changes, weight changes or other complaints. Last visit supportive care, improved with medrol 4mg daily/taper offer after right THR ~02/2023 (stress dose steroids), then may consider trial of dmards/kevzara/did discuss with patient, improved with celebrex/may take when off medrol, OFF prednisone due to adverse effects/bad mood/etc., see ortho, start gout friendly diet, improved with allopurinol, colchicine, see cardiology, start prn heat/ice/otc arthritis creams, low impact weightbearing exercise as tolerated, avoid aggravating triggers January 05, 2023 SUBJECTIVE Mr. Steven is a 62 year old male who presents for joint pain eval. 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 Treated with colchicine x 3years, more pain when off, then restarted 05/2013 S/p b/l TKR ~2012 bone on bone S/p L THR summer weakness arms, legs, sore and painful after golfing or walking, unable to lift gallon water Diagnosed with PMR summer 2022 Better with steroids last dose medrol yesterday More agitated with prednisone, severe headache Celexa 10mg daily summer 2022 Last 10/2022 steroid injection R hip with 1month relief Summer 2022 Fell off cart left shoulder rotator cuff tear, better with steroid injection 2-3weeks ago Mild relief with ultram Tried nabumetone and mobic in the past Taking celebrex x 10years, ok per cardiology Due right THR 02/13/23 No falls/fx/trauma/illness/oral sores/rash/hairloss/jaw pain/dysphagia/epistaxis/hemoptysis. No adverse effects with meds. No other complaints. Patient denies fever, chills, cp, dyspnea, nausea, vomiting, night sweats, scalp tenderness, visual changes, delgadillo, bowel/bladder changes, weight changes or other complaints. COMPLETE REVIEW OF SYSTEMS: RHEUM. ROS: Joint pain: yes L>R shoulder, L>R UEs, LEs, R hip Joint swelling:MCPs for years, L knee Am stiffness: yes all day Low back pain: no Dactylitis: no H/o precedent/frequent infection(s): no Enthesopathy/Clawson's/heel/plantar tenderness: no Skin thickening, psoriasis, photosensitivity, purpura: no Nail changes: no Alpecia, patchy: no Eye inflammation: glasses SICCA: no Oral/nasal/genital ulcers: no GI problems-diarrhea/bleeding/IBD/Gluten intolerence/Dysphagia: occasionally gerd Raynaud's phenomenon/digital ulcers: no Organ inv-Serositis: no Lung disease/ILD: no Myopathy/proximal muscle weakness: no Abnormal Urine or urethritis: no Renal/liver disease: as above FRONT EDGER/PNS/sz/cva/cancer disease: no HEME-Cytopenias/LAD/Clots: no Fevers: no Fatigue: yes, sleeps 7-9 hrs/night, up at night to urinate PMR/GCA ROS: yes, see above Patient denies history of Psoriasis, Rheumatic Fever, PUD, Liver Disease, Hepatitis , Kidney Disease, Kidney Stones, DM, HTN, CAD, Dyslipidemia, PAD, Sinusitis, Asthma, TB infection or exposure, Pneumonias, Anemia, Seizures, Stroke, MS, Clots, Cancer, Transfusions, Tattoos , and Alcohol dependency. Other ROS:The remainder of the review of systems is negative. All other reviewed and negat (more content not included)...[facility]11-26-2023 Instructions* Patient Instructions* Heladio Pineda MD - 03/04/2023 11:28 PM EST May apply over the counter arthritis creams and or patches (biofreeze, icy hot, asper cream, tiger balm, capsacin, lidocaine, salon pas, voltaren gel, etc.) or over the counter pain patches to painful joints up to four times a day. Avoid contact with eyes. May take Extra Strength acetaminophen 500mg every 4-6hours for joint pain. Do not exceed 3000mg /day. Decrease stress Improve sleep May apply heat/ice 20minutes on and off to areas of pain Avoid aggravating triggers If needed, may take Calcium 1200mg daily with food in DIVIDED doses If labs normal, take Vitamin D 4000 International Units daily with food Medrol daily with food Recommend goal: exercising 30minutes 3-5 times a week Recommend weight-bearing aerobic exercises such as walking, dancing, low impact aerobics, elliptical machine, stair climbing, gardening, biking, water exercises flexibility exercises and strength training exercises Recommend avoiding high impact exercises such as jumping, running or jogging or movements where youbend forward and twist the waist, for instance- touching your toes, sit-ups, using row machine meterman pain recommendations per primary care provider/pain clinic Nonfasting labs as scheduled Thank you. BONE MINERAL DENSITY PATIENT INSTRUCTIONS Bone mineral density testing measures the amount of calcium in certain parts of your bones. This information determines how strong your bones are. The test is used to detect osteoporosis, a disease in which the bone's mineral content and density are low, increasing a person's risk of fractures. Thelumbar spine (lower back) and the hip are the skeletal sites usually examined. For the test, remember that: 1. You cannot take this test if you are . 2. Eat a normal diet on the day of the test. 3. Take your medications as you normally would. 4. DO NOT take calcium supplements (such as Tums) for 24 hours before the test. 5. On the day of the test, leave valuables (jewelry or credit cards) at home. 6. The test should be performed prior to oral, rectal or IV contrast studies, or at least 7 days after any of these studies. For the test, you may be asked to wear a hospital gown. You will lie on your back, on a padded table, in a comfortable position. Generally, you can resume your usual activities immediately. Component Latest Ref Rng & Units 01/05/2023 Protein, Total 6.3 - 8.0 g/dL 7.1 Albumin 3.9 - 4.9 g/dL 4.9 Calcium 8.5 - 10.2 mg/dL 10.3 (H) Bilirubin, Total 0.2 - 1.3 mg/dL 0.7 Alkaline Phosphatase 38 - 113 U/L 57 AST 14 - 40 U/L 16 ALT 10 - 54 U/L 27 Glucose 74 - 99 mg/dL 120 (H) BUN 9 - 24 mg/dL 20 Creatinine 0.73 - 1.22 mg/dL 0.98 Sodium 136 - 144 mmol/L 137 Potassium 3.7 - 5.1 mmol/L 4.3 Chloride 97 - 105 mmol/L 98 CO2 22 - 30 mmol/L 24 Anion Gap 9 - 18 mmol/L 15 eGFR >=60 mL/min/1.73m 87 WBC 3.70 - 11.00 k/uL 12.21 (H) RBC 4.20 - 6.00 m/uL 4.58 Hemoglobin 13.0 - 17.0 g/dL 16.3 Hematocrit 39.0 - 51.0 % 48.7 MCV 80.0 - 100.0 fL 106.3 (H) MCH 26.0 - 34.0 pg 35.6 (H) MCHC 30.5 - 36.0 g/dL 33.5 RDW-CV 11.5 - 15.0 % 12.9 Platelet Count 150 - 400 k/uL 207 MPV 9.0 - 12.7 fL 10.7 Absolute nRBC <0.01 k/uL <0.01 TB Nil <=8.00 IU/mL 0.03 TB1 Ag minus Nil <0.35 IU/mL 0.01 TB2 Ag minus Nil <0.35 IU/mL 0.04 TB Result Negative Mitogen minus Nil >=0.50 IU/mL >9.97 TB Interpretation Infection with M. tuberculosis complex is unlikely. If latent tuberculosis infection is highly suspected, a negative result does not rule out the infection. Specimens from immunocompromised patients and those <5 years of age may show false negative results. In case of a contactinvestigation, please repeat 8-12 weeks after a known exposure. CCP Antibody IgG Qualitative Negative Negative CCP Antibody, IgG <20 Units <15 Hep B Surface Ab, Qual Negative Hep B Surf Ab Quant mIU/mL <8.00 Rheumatoid Factor <16 IU/mL <10 CHENCHO Negative Negative WSR 0 - 15 mm/hr 2 CRP <0.9 mg/dL <0.3 Vitamin D 25 Hydroxy 31.0 - 80.0 ng/mL 29.6 (L) Vitamin B12 232 - 1,245 pg/mL 343 Uric Acid 4.0 - 8.1 mg/dL 6.1 Aldolase 1.5 - 8.1 U/L 6.1 CK 51 - 298 U/L 35 (L) Hep C Antibody IA Negative Negative Hep B Surface Ag Negative Negative Hep B Core Ab, Total Negative Negative documented in this encounterHocking [facility]11-25-2023 Miscellaneous Notes* Telephone Encounter - Heladio Pineda MD - 03/03/2023 12:03 PM EST Notify patient medication sent as requested Thank you. Patient's request for medication is as follows: Requested Prescriptions Pending Prescriptions Disp Refills methylPREDNISolone (MEDROL) 4 mg [Pharmacy Med Name: METHYLPREDNISOLONE 4 MG TABLET] 30 tablet 1 Sig: take 1 tablet by mouth every day with food Prescription(s) as above. Please process accordingly. Heladio Pineda MD * Telephone Encounter - Leo Prince MA - 03/02/2023 11:34 AM EST Most recent Rheumatology visit: 01/05/2023 (with Heladio Pineda) Recent Office Visits - This Specialty 01/05/2023 PMR (polymyalgia rheumatica) ([facility]) Rheumatology Heladio Pineda MD 11/17/2013 Wrist arthritis [facility] Conley 10/29/2013 Pseudogout Rheumatology Tracy Conley Upcoming Rheumatology Appointments - Next 365 Days Visit Type Date Time Department [facility]HEAL EST [facility] 03/05/2023 2:00 PM [facility] CBC: CBC Latest Ref Rng & Units 10/29/2013 01/05/2023 WBC 3.70 - 11.00 k/uL 7.92 12.21(H) HEMOGLOBIN 13.0 - 17.0 g/dL 15.8 16.3 HEMATOCRIT 39.0 - 51.0 % 44.2 48.7 PLATELETS 150 - 400 k/uL 195 207 ABS NEUT (ANC) 1.45 - 7.50 k/uL 5.26 - ABS LYMPH 1.00 - 4.00 k/uL 1.98 - Vitamin D: Vitamin D Latest Ref Rng & Units 01/05/2023 VITAMIN D 25 HYDROXY 31.0 - 80.0 ng/mL 29.6(L) LFT: CMP Latest Ref Rng & Units 10/29/2013 01/05/2023 SODIUM 136 - 144 mmol/L 142 137 POTASSIUM 3.7 - 5.1 mmol/L 3.6 4.3 CHLORIDE 97 - 105 mmol/L 106 98 CO2 22 - 30 mmol/L 24 24 GLUCOSE 74 - 99 mg/dL 89 120(H) BUN 9 - 24 mg/dL 17 20 CREATININE 0.73 - 1.22 mg/dL 1.08 0.98 CALCIUM, TOTAL 8.5 - 10.2 mg/dL 9.6 10.3(H) AST 14 - 40 U/L 20 16 ALT 10 - 54 U/L 20 27 ALKALINE PHOSPHATASE 38 - 113 U/L 73 57 Hepatic Function: Creatinine: Creatinine Latest Ref Rng & Units 10/29/2013 01/05/2023 CREAT 0.73 - 1.22 mg/dL 1.08 0.98 ESR/CRP: ESR, WSR Latest Ref Rng & Units 10/29/2013 01/05/2023 WSR 0 - 15 mm/hr 6 2 CRP Latest Ref Rng & Units 10/29/2013 01/05/2023 CRP <0.9 mg/dL 0.5 <0.3 Uric Acid: Uric Acid Latest Ref Rng & Units 01/05/2023 URIC ACID 4.0 - 8.1 mg/dL 6.1 Open Standing (Multiple Instance) Lab Orders None Open Future (Single Instance) Lab Orders Expected Expires Ordered SED RATE WESTERGREN [SQWSR] 02/10/23 01/11/24 01/10/23 Auth. provider: Heladio Pineda MD Assoc. diagnoses: Elevated sed rate, Elevated C-reactive protein (CRP) C-REACTIVE PROTEIN (CRP) [SQCRP] 02/10/23 01/11/24 01/10/23 Auth. provider: Heladio Pineda MD Assoc. diagnoses: Elevated sed rate, Elevated C-reactive protein (CRP) VITAMIN D 25 HYDROXY [SQVITD] 04/12/23 01/11/24 01/10/23 Auth. provider: Heladio Pineda MD Assoc. diagnoses: Vitamin D deficiency VITAMIN B12 BLOOD [SQB12] 04/12/23 01/11/24 01/10/23 Auth. provider: Heladio Pineda MD Assoc. diagnoses: Vitamin B12 deficiency documented in this encounterHocking [facility]11-22-[facility]23 Evaluation note* Encounter Date Diagnosis Assessment Notes Treatment Notes Treatment Clinical Notes Feb, Aftercare following joint replacement surgery (ICD-10 - Z47.1) Zipline removed and steri strip applied. Instructed patient to place pressure over seroma using rolled up CALEB wrap or kerlix and compression shorts. Continue to use anticoagulation as ordered. All questions and concerns addressed. Examination and assessment of this patient was performed by Melinda Verduzco NP and patient will continue with the treatment plan per , who initiated this treatment plan. Dr. Mendez is present in the office today and providing supervision. Feb, Presence of right artificial hip joint (ICD-10 - Z96.641) Feb, S/P total left hip arthroplasty (ICD-10 - Z96.642) [employer] Other 10-27-2023 Evaluation note* Encounter Date Diagnosis Assessment Notes Treatment Notes Treatment Clinical Notes Jan, Other Prolonged Servi carolyn 1. H and P date: 01/31/2023 2. Diagnosis: Right hip primary osteoarthritis 3. Counseling: Patient received counseling at their history and physical. 4. Coordination of care: The patient was discussed at today's total joints meeting with anesthesia, OR staff, and implant reps in an effort to coordinate the patient's care during the perioperative period. The anesthesiologist was involved in discussions regarding the patient's pain management such as regional blocks, anesthesia plans the day of surgery such as general versus spinal, as well as a final review of lab work to ensure the patient could proceed with surgery safely. The mall manager was vital for surgery timing and scheduling purposes. The implant rep was also available for necessary discussions regarding preoperative templates that were created on preoperative x-rays to ensure the appropriate implants and sizes of implants would be available the day of surgery. The patient's discharge plan was also discussed and the final decision was confirmed. 5. Medication Changes: We will not prescribe Celebrex postop as the patient is already on prednisone. He will continue this throughout the postoperative course 6. Lab Tests: The patient's screening tests including albumin levels, vitamin D levels, hemoglobin, hemoglobin A1c, cotinine serum level, and MRSA nasal cultures were all reviewed to ensure appropriate perioperative care can be performed. This included selection of perioperative antibiotics, surgical dressing, and any contact precautions that may need to be enacted. The patient's presurgical testing lab work was also reviewed. This included a CBC, BMP, UA, fructosamine, and a blood type and screen. This lab work was discussed with anesthesia during today's total joints meeting to ensure the patient could proceed with surgery safely. 7. Review of reports/records: The surgical clearance information provided by the patient's PCP and if deemed necessary, other specialists, was reviewed. Any recommendations made by these care providers were taken into consideration for the patient's perioperative and postoperative treatment plans. Prolonged services time spent: 34 minutes [employer] Other 10-25-2023 Evaluation note* Encounter Date Diagnosis Assessment Notes Treatment Notes Treatment Clinical Notes Jan, Primary osteoarthritis 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 (ICD-10 - M16.11) Jan, Other 1. Right PETER Home Medications - DVT prophylaxis: Aspirin - NSAID: Home prednisone - Disposition: Same-day discharge Joints Meeting Checklist - Pharmacy: [facility] to bed - Approach/Technique: anterior, [place] bed - Implants: Avenir Complete/G7; - Anesthesia: general vs spinal - Blocks: Fascia iliaca - Preop Antibiotics: Ancef and Vanco - TXA: yes-systemic - Positioning/OR Bed: supine on [place] bed - Intraop X-ray: yes - Otoole: no - Tourniquet: no - Antibiotic powder: yes-2 grams of vanc - Antibiotic cement: no - Dressing: Zipline and Prevena 14-day The patient has tried and failed all conservative treatment options to include: activity modification, physical therapy, oral anti-inflammatories , and intra-articular steroid injections. We will move forward with the definitive treatment option and schedule the patient for the above mentioned procedure. The risks involved with surgery and postoperative complications were discussed in relation to the patient's non-modifiable risk factors including but not limited to the following: Hypothyroidism Hypertension Coronary artery disease status post stents and bypass All questions were answered after discussing these increased risks. The patient voiced understanding of these increased risks and still wishes to proceed with surgery. The risks involved with surgery and postoperative complications were discussed in relation to the patient's modifiable risk factors including but not limited to the following: Prednisone for rheumatoid arthritis-patient's been on this for 1 month daily. We did discuss coming off of this as well as staying on it in regards to the risks and benefits. We came to the agreement that he will continue his 4 mg daily prednisone dose now and through surgery. We did discuss that this does put him at increased risk for wound complications and increased risk of infection. Patient still wished to proceed with surgery. All questions were answered after discussing these increased risks. The patient voiced understanding of these increased risks and still wishes to proceed with surgery. The risks and benefits of the surgery were reviewed in depth with the patient, and all questions were answered. Informed consent was obtained. The risks and potential complications of the surgery include, but are not limited to: avascular necrosis, nonunion, nerve injury, blood vessel injury, excessive bleeding, blood transfusion, infection, persistent pain, loss of fixation, failure of the implant, deep vein thrombosis, pulmonary embolus, loss of limb, fracture, leg length discrepancy, and . Patient voiced understanding of these risks and has elected to proceed with the above surgery. OARRS report generated and reviewed. [employer] Other 10-18-2023 Evaluation note* Encounter Date Diagnosis Assessment Notes Treatment Notes Treatment Clinical Notes Jan, Local infection of the skin and subcutaneous tissue, unspecified (ICD-10 - L08.9) Cleanse w/ soap and water. Apply Mupirocin bid and begin oral antibiotics. Peroxide qd Jan, Abrasion, right lower leg, initial encounter (ICD-10 - S80.811A) Keep open, clean and dry Jan, Polymyalgia rheumatica (ICD-10 - M35.3) Gentle stretching exercises Continue Prednisone w/ plan to start MTX after surgery [employer] Other 10-05-2023 Miscellaneous Notes* Telephone Encounter - Ruben Monterroso MA - 01/11/2023 8:43 AM EDT Spoke to pt aware of results and recommendations. * Telephone Encounter - Heladio Pineda MD - 01/10/2023 5:14 PM EDT Please Call patient if MyChart note not read to review results/released to My Chart if tests completed at [facility]: Mildly Low vitamin D maybe associated with fatigue/joint/muscle pain. Start vitamin D 4000 International Units daily with food. Mildly Low vitamin b12- maybe associated with fatigue, may start over the counter vitamin [id number] daily by mouth or notify office if interested in nurse visits for monthly vitamin b12 injections. Stable rest of labs and no inflammation. Continue medrol 4mg 1tab daily. New script sent to pharmacy. Notify office if medication change is not tolerated. Recheck nonfasting labs in 1-2months (after surgery) and 3months, orders have been placed. Happy to further review and discuss at follow up visit. Continue rest of treatment plan per instructions at last office visit. Thank you. 01/05/23 high calcium 10.3, glucose 120, wbc 12.21;low vitamin D 29.6, vitamin b12-343;normal rest of cbc, cmp, esr 2, crp<0.3, uric acid 6.1;negative rf<10, ccp<15, CHENCHO, hepatitis panel, quantiferon tb; [facility] Instructions* Patient Instructions* Heladio Pineda MD - 01/05/2023 12:07 PM EDT May apply over the counter arthritis creams and or patches (biofreeze, icy hot, asper cream, tiger balm, capsacin, lidocaine, salon pas, voltaren gel, etc.) or over the counter pain patches to painful joints up to four times a day. Avoid contact with eyes. May take Extra Strength acetaminophen 500mg every 4-6hours for joint pain. Do not exceed 3000mg /day. Decrease stress Improve sleep May apply heat/ice 20minutes on and off to areas of pain Avoid aggravating triggers If needed, may take Calcium 1200mg daily with food in DIVIDED doses If labs normal, take Vitamin D 4000 International Units daily with food Medrol 4mg daily with food Recommend goal: exercising 30minutes 3-5 times a week Recommend weight-bearing aerobic exercises such as walking, dancing, low impact aerobics, elliptical machine, stair climbing, gardening, biking, water exercises flexibility exercises and strength training exercises Recommend avoiding high impact exercises such as jumping, running or jogging or movements where youbend forward and twist the waist, for instance- touching your toes, sit-ups, using row machine detention pain recommendations per primary care provider/pain clinic Nonfasting labs as scheduled Thank you. BONE MINERAL DENSITY PATIENT INSTRUCTIONS Bone mineral density testing measures the amount of calcium in certain parts of your bones. This information determines how strong your bones are. The test is used to detect osteoporosis, a disease in which the bone's mineral content and density are low, increasing a person's risk of fractures. Thelumbar spine (lower back) and the hip are the skeletal sites usually examined. For the test, remember that: 1. You cannot take this test if you are . 2. Eat a normal diet on the day of the test. 3. Take your medications as you normally would. 4. DO NOT take calcium supplements (such as Tums) for 24 hours before the test. 5. On the day of the test, leave valuables (jewelry or credit cards) at home. 6. The test should be performed prior to oral, rectal or IV contrast studies, or at least 7 days after any of these studies. For the test, you may be asked to wear a hospital gown. You will lie on your back, on a padded table, in a comfortable position. Generally, you can resume your usual activities immediately. documented in this encounterH[facility]09-29-[facility] NoteHNO ID: [id number] Author: Heladio Pineda MD Service: ? Author Type: Physician Type: Progress Notes Filed: 01/05/2023 4:37 PM Note Text: NEW CONSULT:RHEUMATOLOGY SERVICE SERVICE DATE: 01/05/2023 SERVICE TIME: 11:31 AM REASON FOR CONSULT: joint pain 2nd opinion REQUESTING PHYSICIAN: Dr.Benjamin Inocente DO PRIMARY CARE PHYSICIAN: Coleman Brower DO Patient's Name: Esme Steven [address] [place] [id number] Accompanied by: self This consult was requested for my medical opinion regarding the rheumatologic evaluation of the patient's joint pain problems, and my final recommendations will be communicated to the requesting health care provider by way of the shared medical record for internal providers or letter via the [employer] for external providers. January 05, 2023 SUBJECTIVE Mr. Steven is a 62 year old male who presents for joint pain eval. 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 Treated with colchicine x 3years, more pain when off, then restarted 05/2013 S/p b/l TKR ~2012 bone on bone S/p L THR summer weakness arms, legs, sore and painful after golfing or walking, unable to lift gallon water Diagnosed with PMR summer 2022 Better with steroids last dose medrol yesterday More agitated with prednisone, severe headache Celexa 10mg daily summer 2022 Last 10/2022 steroid injection R hip with 1month relief Summer 2022 Fell off cart left shoulder rotator cuff tear, better with steroid injection 2-3weeks ago Mild relief with ultram Tried nabumetone and mobic in the past Taking celebrex x 10years, ok per cardiology Due right THR 02/13/23 No falls/fx/trauma/illness/oral sores/rash/hairloss/jaw pain/dysphagia/epistaxis/hemoptysis. No adverse effects with meds. No other complaints. Patient denies fever, chills, cp, dyspnea, nausea, vomiting, night sweats, scalp tenderness, visual changes, delgadillo, bowel/bladder changes, weight changes or other complaints. COMPLETE REVIEW OF SYSTEMS: RHEUM. ROS: Joint pain: yes L>R shoulder, L>R UEs, LEs, R hip Joint swelling:MCPs for years, L knee Am stiffness: yes all day Low back pain: no Dactylitis: no H/o precedent/frequent infection(s): no Enthesopathy/Clawson's/heel/plantar tenderness: no Skin thickening, psoriasis, photosensitivity, purpura: no Nail changes: no Alpecia, patchy: no Eye inflammation: glasses SICCA: no Oral/nasal/genital ulcers: no GI problems-diarrhea/bleeding/IBD/Gluten intolerence/Dysphagia: occasionally gerd Raynaud's phenomenon/digital ulcers: no Organ inv-Serositis: no Lung disease/ILD: no Myopathy/proximal muscle weakness: no Abnormal Urine or urethritis: no Renal/liver disease: as above FRONT EDGER/PNS/sz/cva/cancer disease: no HEME-Cytopenias/LAD/Clots: no Fevers: no Fatigue: yes, sleeps 7-9 hrs/night, up at night to urinate PMR/GCA ROS: yes, see above Patient denies history of Psoriasis, Rheumatic Fever, PUD, Liver Disease, Hepatitis , Kidney Disease, Kidney Stones, DM, HTN, CAD, Dyslipidemia, PAD, Sinusitis, Asthma, TB infection or exposure, Pneumonias, Anemia, Seizures, Stroke, MS, Clots, Cancer, Transfusions, Tattoos , and Alcohol dependency. Other ROS:The remainder of the review of systems is negative. All other reviewed and negative other than HPI. 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 Height Loss: 1/2 IMMUNIZATION HX: Pneumovax yes Flu shot yes Tetanus yes Last PPD: negative, maternal GM/mother had TB; PAST MEDICAL HISTORY: PMH FER/waiting CPAP, BPH, CAD, thyroid disease, 1st great toe/start alloupurinol ~2007, left index finger [employer] 1979, Afib temporarily,S/p b/l TKR ~2012 bone on bone, S/p L THR 06/2021, 2012 s/p CABG 4vessels (44y/o 10cardiac stents), s/p appy, PAST MEDICAL HISTORY Diagnosis Date CAD (coronary artery disease) Gout Hypothyroid PAST SURGICAL HISTORY: S/p b/l TKR ~2012 bone on bone, S/p L THR 06/2021, 2012 s/p CABG 4vessels (44y/o 10cardiac stents), s/p appy, PAST SURGICAL HISTORY Procedure Laterality Date BACK SURGERY HX KNEE ARTHROSCOPY/SURGERY Left knee, 1991 and 2008 for meniscal repair FAMILY HISTORY: brother-brain aneurysm;mother- pacemaker;maternal GM/mother had TB;1992 L4-5 and SI surgery from construction injury, no hardware;father CAD;brother- cancer; FAMILY HISTORY Problem Re (more content not included)...[facility]09-29-2023 History of Present illness Narrative* Heladio Pineda MD - 01/05/2023 11:31 AM EDT NEW CONSULT:RHEUMATOLOGY SERVICE SERVICE DATE: 01/05/2023 SERVICE TIME: 11:31 AM REASON FOR CONSULT: joint pain 2nd opinion REQUESTING PHYSICIAN: Dr.Benjamin Inocente DO PRIMARY CARE PHYSICIAN: Coleman Brower DO Patient's Name: Esme Steven [address] [place], [place] [id number] Accompanied by: self This consult was requested for my medical opinion regarding the rheumatologic evaluation of the patient's joint pain problems, and my final recommendations will be communicated to the requesting health care provider by way of the shared medical record for internal providers or letter via the [facility] [employer] for external providers. January 05, 2023 SUBJECTIVE Mr. Steven is a 62 year old male who presents for joint pain eval. 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 Treated with colchicine x 3years, more pain when off, then restarted 05/2013 S/p b/l TKR ~2012 bone on bone S/p L THR summer weakness arms, legs, sore and painful after golfing or walking, unable to lift gallon water Diagnosed with PMR summer 2022 Better with steroids last dose medrol yesterday More agitated with prednisone, severe headache Celexa 10mg daily summer 2022 Last 10/2022 steroid injection R hip with 1month relief Summer 2022 Fell off cart left shoulder rotator cuff tear, better with steroid injection 2-3weeks ago Mild relief with ultram Tried nabumetone and mobic in the past Taking celebrex x 10years, ok per cardiology Due right THR 02/13/23 No falls/fx/trauma/illness/oral sores/rash/hairloss/jaw pain/dysphagia/epistaxis/hemoptysis. No adverse effects with meds. No other complaints. Patient denies fever, chills, cp, dyspnea, nausea, vomiting, night sweats, scalp tenderness, visual changes, delgadillo, bowel/bladder changes, weight changes or other complaints. COMPLETE REVIEW OF SYSTEMS: RHEUM. ROS: Joint pain: yes L>R shoulder, L>R UEs, LEs, R hip Joint swelling:MCPs for years, L knee Am stiffness: yes all day Low back pain: no Dactylitis: no H/o precedent/frequent infection(s): no Enthesopathy/Clawson's/heel/plantar tenderness: no Skin thickening, psoriasis, photosensitivity, purpura: no Nail changes: no Alpecia, patchy: no Eye inflammation: glasses SICCA: no Oral/nasal/genital ulcers: no GI problems-diarrhea/bleeding/IBD/Gluten intolerence/Dysphagia: occasionally gerd Raynaud's phenomenon/digital ulcers: no Organ inv-Serositis: no Lung disease/ILD: no Myopathy/proximal muscle weakness: no Abnormal Urine or urethritis: no Renal/liver disease: as above FRONT EDGER/PNS/sz/cva/cancer disease: no HEME-Cytopenias/LAD/Clots: no Fevers: no Fatigue: yes, sleeps 7-9 hrs/night, up at night to urinate PMR/GCA ROS: yes, see above Patient denies history of Psoriasis, Rheumatic Fever, PUD, Liver Disease, Hepatitis , Kidney Disease, Kidney Stones, DM, HTN, CAD, Dyslipidemia, PAD, Sinusitis, Asthma, TB infection or exposure, Pneumonias, Anemia, Seizures, Stroke, MS, Clots, Cancer, Transfusions, Tattoos , and Alcohol dependency. Other ROS:The remainder of the review of systems is negative. All other reviewed and negative other than HPI. 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 Height Loss: 1/2 IMMUNIZATION HX: Pneumovax yes Flu shot yes Tetanus yes Last PPD: negative, maternal GM/mother had TB; PAST MEDICAL HISTORY: PMH FER/waiting CPAP, BPH, CAD, thyroid disease, 1st great toe/start alloupurinol ~2007, left index finger [employer] 1979, Afib temporarily,S/p b/l TKR ~2012 bone on bone, S/p L THR 06/2021, 2012 s/p CABG 4vessels (44y/o 10cardiac stents), s/p appy, PAST MEDICAL HISTORY Diagnosis Date CAD (coronary artery disease) Gout Hypothyroid PAST SURGICAL HISTORY: S/p b/l TKR ~2012 bone on bone, S/p L THR 06/2021, 2012 s/p CABG 4vessels (44y/o 10cardiac stents), s/p appy, PAST SURGICAL HISTORY Procedure Laterality Date BACK SURGERY HX KNEE ARTHROSCOPY/SURGERY Left knee, 1991 and 2008 for meniscal repair FAMILY HISTORY: brother-brain aneurysm;mother- pacemaker;maternal GM/mother had TB;1992 L4-5 and SIsurgery from construction injury, no hardware;father CAD;brother- cancer; FAMILY HISTORY Problem Relation Age of Onset Stroke Mother Lipids Father Heart Father SOCIAL HISTORY: Social History Tobacco Use Smoking status: Never Substance Use Topics Alcohol use: Yes Alcohol/week: 30.0 standard drinks of alcohol Types: 12 Cans of Beer (12oz) per week 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 Moderate right-sided and mild left-sided third MCP osteoarthritis . Degenerative changes of the right thumb IP joint. Advanced triscaphe and joint space narrowing bilaterally. Cystic change within the distal pole of the scaphoid on the left likely degenerative.Nonspecific cystic change along the radial aspect of the third proximal phalanx head on the left and right Component Latest Ref Rng & Units 10/29/2013 WSR 0 - 10 mm/hr 6 CRP 0.0 - 1.0 mg/dL 0.5 CCP Antibody, IgG <20 Units <15 Rheumatoid Factor <20 IU/mL <10 Magnesium 1.7 - 2.6 mg/dL 2.1 PTH, Intact 15 - 65 pg/mL 49 02/2010 knee xrays-Mild medial compartment narrowing bilaterally with tiny marginal osteophytes. Small medial compartment and patellar osteophytes bilaterally. 02/2010 hand xrays-Marked triscaphe joint space narrowing bilaterally with [id number] contact andsubchondral sclerosis. Mild narrowing of the right third digit MCP joint with small osteophytes. Tiny osteophytes also noted in the left third digit MCP joint. Tiny osteophytes are also seen at the several other PIP and DIP joints. PHYSICAL EXAM:reviewed vitals BP 143/74 Pulse 71 Ht 5' 10.5 (1.79m) Wt 237 lb (107.5kg) BMI 33.51 kg/(m^2). General Appearance: WD/WN, NAD. Appropriate grooming. Very pleasant. Ambulates fair without assistance or without assistive devices, unable to squat and stand due to hip pain SKIN: No rash, no psoriasis, no purpura, no ulcers, no skin thickening/tightness, no telangiectasias. HEENT: No patchy alopecia, normal temporal artery pulsations, non-tender, scalp non-tender, no conjunctival injection or icterus, no oral ulcers, no thrush, normal nasal mucosa, no sinus tenderness, normal TM's. yes glasses, fair dentition NECK: neck supple w/o masses, no thyromegaly, no LAD. LUNGS: CTA, Good respiratory effort. HEART: RRR, - m/r/g ABDOMEN: soft, non-tender, no HSM/masses/bruits. EXTREMITIES: Adequate pulses b/l UE ; No clubbing,discoloration,sclerodactyly, periungual erythema,digital ulcers, nail pitting, edema, varicosities. MUSCULOSK: No joint deformities, no rheumatoid nodules, calcifications or tophi. No SI tenderness, no ruth's tenderness, no heel/plantar tenderness, lumbar flexion full, negative Rosette's test, tinel's and phil tests Swoll JTS:MCPs Tend. JTS:L>R shoulder, L>R UEs, LEs, R hip, decreased range of motion due to pain; no warmth/erythema No clinical synovitis in the DIP's, PIP's, MCP's, wrists, elbows, shoulders, knees, ankles, midfoot, or toes. no knee effusions bilateral. Shoulder exam:see above; no warmth/erythema Yes Hip rom with pain LIMITATION of Motion of Joints: yes Thoracic/Lumbar Spine: No percussion tenderness SLR:negative No instability in any upper or lower extremity joints. NEURO: Mental Status: alert and oriented x 3, anxious, CN II - XII grossly intact Motor: 5/5 proximally and distally b/l Sensory: intact to fine touch TENDER POINTS: 0/18 Gait: see above Toe and heel walk normal. 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 Treated with colchicine x 3years, more pain when off, then restarted 05/2013 S/p b/l TKR ~2012 bone on bone S/p L THR summer weakness arms, legs, sore and painful after golfing or walking, unable to lift gallon water Diagnosed with PMR summer 2022 Better with steroids last dose medrol yesterday More agitated with prednisone, severe headache Celexa 10mg daily summer 2022 Last 10/2022 steroid injection R hip with 1month relief Summer 2022 Fell off cart left shoulder rotator cuff tear, better with steroid injection 2-3weeks ago Mild relief with ultram Tried nabumetone and mobic in the past Taking celebrex x 10years, ok per cardiology Due right THR 02/13/23 Has findings of secondary osteoarthritis of multiple joints, left rotator cuff tear arthropathy, idiopathic gout of multiple joints, pseudogout of multiple joints, PMR, will complete workup = supportive care, improved with medrol 4mg daily/taper offer after right THR ~02/2023 (stress dosesteroids), then may consider trial of dmards/kevzara/did discuss with patient, improved with celebrex/may take when off medrol, OFF prednisone due to adverse effects/bad mood/etc., see ortho, start gout friendly diet, improved with allopurinol, colchicine, see cardiology, start prn heat/ice/otc arthritis creams, low impact weightbearing exercise as tolerated, avoid aggravating triggers, answered all questions and concerns, patient voiced understanding. RECOMMENDATION/PLAN: Office Visit on 01/05/23 DXA-AXIAL SKELETON DXA-FOREARM SKELETON RHEUMATOID FACTOR BL CCP ANTIBODY IGG CHENCHO BY IFA WITH REFLEX SED RATE WESTERGREN C-REACTIVE PROTEIN (CRP) HEP REMOTE PANEL BL BLOOD TB SCREEN COMP METABOLIC PANEL CBC VITAMIN D 25 HYDROXY VITAMIN B12 BLOOD URIC ACID BLOOD ALDOLASE BLD CK CREATINE KINASE Reviewed all available labs/tests with patient Provided printed info January 05, 2023 check above orders Modified January 05, 2023 HAQ0, pain 30-50%; May apply over the counter arthritis creams and or patches (biofreeze, icy hot, asper cream, tiger balm, capsacin, lidocaine, salon pas, voltaren gel, etc.) or over the counter pain patches to painful joints up to four times a day. Avoid contact with eyes. May take Extra Strength acetaminophen 500mg every 4-6hours for joint pain. Do not exceed 3000mg /day. Decrease stress Improve sleep May apply heat/ice 20minutes on and off to areas of pain Avoid aggravating triggers If needed, may take Calcium 1200mg daily with food in DIVIDED doses If labs normal, take Vitamin D 4000 International Units daily with food Medrol 4mg daily with food Recommend goal: exercising 30minutes 3-5 times a week Recommend weight-bearing aerobic exercises such as walking, dancing, low impact aerobics, elliptical machine, stair climbing, gardening, biking, water exercises flexibility exercises and strength training exercises Recommend avoiding high impact exercises such as jumping, running or jogging or movements where youbend forward and twist the waist, for instance- touching your toes, sit-ups, using row machine meterman pain recommendations per primary care provider/pain clinic Nonfasting labs as scheduled Additional time spent with patient on healthy lifestyle, healthy food and anti- inflammatory diet (with emphasis on whole plant based diet), avoiding refined carbs/sugars and processed food, appropriate exercise (stretching, cardio and strengthening), good sleep hygiene, stress mgt, and supplementing vital deficiencies and maintaining healthy wt and BMI. Additional information provided with references and educational information. Bone Health Recommendations: -Bone Density: After age 70 yrs, sooner if new clinical risk factors, or systemic steroid use of 3 months or more. -Vitamin D supplementation recommended, optimal dose is the dose necessary to achieve Vitamin D 25-OH blood level in range of 40-60 ng/mL. -Recommended daily dose of calcium: 1000-1200mg total a day in divided doses. Calcium from dietary sources, if not sufficient, or if with h/o calcium nephrolithiasis would recommend Calcium Citrate supplement, as it is recommended to avoid calcium carbonate products, which as main dietary calcium source. The after visit summary has information on dietary calcium and instructions on reading calcium label and converting the %DV to mg. -Regular weight-bearing and muscle-strengthening exercise -Avoidance of tobacco smoking, excessive alcohol intake and excessive caffeine intake. -Fall and fracture precautions -Continued regular dental follow up visits and good dental/gum care Stressed the importance of following up with PCP and specialists for his/her chronic diseases, health, CV, and cancer screening and continued care. Will follow disease activity/progression and adjusttherapeutic regimen to disease activity and severity. Discussed medication dosage, usage, goals of therapy, and side effects. Available test results were reviewed Additional time spent with the patient to discuss their questions. Additional time spent with the patient devoted to discussing treatment strategy, planning, and implementation. Discussed findings, impression and plan with patient. Patient understands above plan; questions asked and answered. Patient agrees to plan as noted above. Of the 60 minute long appointment visit, Total time spent on this visit, with more than 50% of timespent via video & audio (virtual) or phone or face to face with patient, in consultation, and in addition to Counseling and Coordination of Care, explanation of diagnosis, and planning of furthermanagement; I spent a total of 60 minutes on the date of the service during phone/virtual or office visit with an additional 10-20 minutes which included preparing to see the patient via video & audio (virtual) or phone or [id number] patient care, completing clinical documentation, obtaining and/or reviewing separately obtained history, review all available records, performing a medically appropriate examination, counseling and educating the patient/family/caregiver, ordering medications, tests, or procedures, communicating with other HCPs (not separately reported), independently interpreting results (not separately reported), communicating results to the patient/family/caregiver and care coordination (not separately reported) Follow up: 6months, earlier if needed Recommendations to share with referring physician/Primary care physician : Dear Dr.Benjamin Jackie Brower, : I had the pleasure of seeing your patient, Esme Steven. I have enclosed a copy of my clinic note with my assessment and recommendations for this patient. Recommendations for your consideration as you deem necessary: -Continuous follow up with Primary care physician for cardiovascular disease prevention, for age appropriate cancer screening and routine health maintenance and wellness, and infection precautions and age appropriate immunization recommended. Thank you for allowing me to participate in the care of your patient. Heladio Pineda MD I will relay my findings and recommendations to the physician requesting the consult by letter/electronic shared medical records. cc Coleman Brower DO SIGNATURE: Heladio Pineda MD PATIENT NAME: Esme Steven DATE: January 05, 2023 [facility]* Encounter Date Diagnosis Assessment Notes Treatment Notes Treatment Clinical Notes Dec, Preop exam for internal medicine (ICD-10 - Z01.818) Mr. Steven has been seen and examined. I have reviewed his medications and recommend he hold his Spironolactone/HCT Z the day of surgery. Dec, ASHD (arteriosclerot ic heart disease) (ICD-10 - I25.10) Stable without activity limiting symptoms. Normal stress testing in July 2021. He is capable of performing tasks > 4METs with ease. 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 Dec, Elevated cholesterol (ICD-10 - E78.00) Stable, continue medication without interruption. Dec, Primary hypertension (ICD-10 - I10) Stable, continue medication without interruption. Dec, Gastroesophageal reflux disease with esophagitis without hemorrhage (ICD-10 - K21.00) Stable, continue treatment without interruption Dec, Autoimmune thyroidit is (ICD-10 - E06.3) Clinically euthyroid, continue treatment without interruption [facility] Other 09-19-2023 Evaluation note* Encounter Date Diagnosis Assessment Notes Treatment Notes Treatment Clinical Notes Dec, Internal derangement of left shoulder (ICD-10 - M24.812) Dec, Traumatic incomplete tear of left rotator cuff, initial encounter (ICD-10 - S46.012A) A 1/1cc marcaine / kenalog cortisone injection was performed into the subacromial space under sterile technique. Patient tolerated the injection well with no adverse reaction. Dec, Contusion of left shoulder, initial encounter (ICD-10 - S40.012A) Dec, Multiple joint pain (ICD-10 - M25.50) [facility] Other 08-17-2023 Evaluation note* Encounter Date Diagnosis Assessment Notes Treatment Notes Treatment Clinical Notes Nov, Pseudogout (ICD-10 - M11.20) [facility] Other 08-16-2023 Evaluation note* Encounter Date Diagnosis Assessment Notes Treatment Notes Treatment Clinical Notes Nov, Primary osteoarthritis 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 (ICD-10 - M16.11) [facility] Other 08-15-2023 Evaluation note* Encounter Date Diagnosis Assessment Notes Treatment Notes Treatment Clinical Notes Nov, Internal derangement of left shoulder (ICD-10 - M24.812) A marcaine/kenalog cortisone injection was performed into the region of the intertubercular groove and proximal biceps tendon. Patient tolerated the injection well without adverse reaction. Nov, Traumatic incomplete tear of left rotator cuff, initial encounter (ICD-10 - S46.012A) Nov, Contusion of left shoulder, initial encounter (ICD-10 - S40.012A) Nov, Multiple joint pain (ICD-10 - M25.50) We will refer to Heladio Pineda for rheumatology consult [facility] Other 08-07-2023 Evaluation note* Encounter Date Diagnosis Assessment Notes Treatment Notes Treatment Clinical Notes Nov, Medicare annual wellness visit, subsequent (ICD-10 - Z00.00) Personalized health advice was given to the beneficiary including a written plan for screenings discussed and provided. Advanced care planning reviewed and/or information given as requested. Additional counseling was provided here today in regards to, [ ]. The above visit was performed by [ ], under direct supervision of [ ]. Document reviewed and amended by provider signed below. Nov, ASHD (arteriosclerotic heart disease) (ICD-10 - I25.10) This patient is stable without activity related CP, dyspnea or lightheadedness. They are instructed to continue exercise and AHA diet plan. Nov, Elevated cholesterol (ICD-10 - E78.00) Instructed on diet and exercise with continued statin therapy.Discussed the beneficial effects of lowering cholesterol in reducing the risk for cerebrovascular and cardiovascular disease. Nov, Primary hypertension (ICD-10 - I10) This patient is instructed to consume a healthy, low-fat, low-salt diet. They are also encouraged to continue exercise to achieve/maintain a normal BMI. Nov, Gastroesophageal reflux disease with esophagitis without hemorrhage (ICD-10 - K21.00) Diet instructions: Smaller portions, avoid eating and laying flat, avoid eating or drinking prior to bedtime. Weight loss. Nov, Autoimmune thyroiditis (ICD-10 - E06.3) Euthyroid, yearly TSH Nov, Other specified hypothyroidism (ICD-10 - E03.8) Nov, Inflammatory polyarthritis (ICD-10 - M06.4) Discussed differential and treatment. Severe osteoarthritis w/ inflammatory involvement: polyarthritis/PMR Nov, Mild episode of recurrent major depressive disorder (ICD-10 - F33.0) Healty diet, exercise and keep active Continue SSRI, improvement w/ mood since initiation Nov, Screening PSA (prostate specific antigen) (ICD-10 - Z12.5) Yearly MELBA and PSA [facility] Other 07-19-2023 Evaluation note* Encounter Date Diagnosis Assessment Notes Treatment Notes Treatment Clinical Notes Oct, Superficial ulcer of lower extremity (ICD-10 - L97.909) Cleanse w/ soap and water. Elevate as much as possible. No improvement, refer to wound clinic Oct, Cellulitis of left lower extremity (ICD-10 - L03.116) Keep clean, elevate and use Mupirocin bid. Begin antibiotics. [facility] Other 06-27-2023 Evaluation note* Encounter Date Diagnosis Assessment Notes Treatment Notes Treatment Clinical Notes Sep, Morbid (severe) obesity due to excess calories (ICD-10 - E66.01) This patient has been instructed on a low-fat, high-fiber diet. They are instructed to reduce calories, portion sizes and snacks. It is recommended that they exercise for 30 minutes, 3-5 times weekl He has been cutting back w/ calories and increasing activity w/o benefit Adipex is contra indicated due to ASHD and HTN He is a good candidate for GLP-1 Sep, ASHD (arteriosclerotic heart disease) (ICD-10 - I25.10) This patient is stable without activity related CP, dyspnea or lightheadedness. They are instructed to continue exercise and AHA diet plan. Sep, Body mass index [BMI] 36.0-36.9, adult (ICD-10 - Z68.36) Sep, PMR (polymyalgia rheumatica) (ICD-10 - M35.3) Discussed dx: - elevated inflammatory markers helps but not necessary for dx. - clinically has symptoms suggested of PMR - Rheum has prescribed Prednisone, w/ tapering dose, over the next month Sep, Erectile dysfunction due to arterial insufficiency (ICD-10 - N52.01) He denies CP, palpitations or lightheadedness He completed evaluation w/ [facility] Magistrate w/o changes Instructed to avoid use of Nitroglycerine w/ Sildenafil. Instructed to avoid use if develop CP, palpitations or lightheadedness [facility] Other 06-21-2023 Evaluation note* Encounter Date Diagnosis Assessment Notes Treatment Notes Treatment Clinical Notes Sep, FER (obstructive sleep apnea) (ICD-10 - G47.33) AHI 25, Psat 80% [facility] Other 06-21-2023 Evaluation note* Encounter Date Diagnosis Assessment Notes Treatment Notes Treatment Clinical Notes Sep, FER (obstructive sleep apnea) (ICD-10 - G47.33) AHI 35 [facility] Other 05-03-2023 Evaluation note* Encounter Date Diagnosis Assessment Notes Treatment Notes Treatment Clinical Notes August, ASHD (arteriosclerotic heart disease) (ICD-10 - I25.10) This patient is stable without activity related CP, dyspnea or lightheadedness. They are instructed to continue exercise and AHA diet plan. August, Autoimmune thyroiditis (ICD-10 - E06.3) Euthyroid, continue TSH yearly August, PMR (polymyalgia rheumatica) (ICD-10 - M35.3) Suspected on clinical symptoms, examination and response to steroids. Normal ESR, CRP, CK Normal CBC, CMP NOrmal B12, TSH Refer to Rheumatology for evaluation August, Mild episode of recurrent major depressive disorder (ICD-10 - F33.0) [facility] Other 05-01-2023 Evaluation note* Encounter Date Diagnosis Assessment Notes Treatment Notes Treatment Clinical Notes August, Osteoarthritis 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 (ICD-10 - M16.11) Patient denies any complaints of hip pain at this time. He attributes this to recent intra-articular and trochnateric bursa injections. We will continue to monitor and proceed with future treatment to the area as needed. Overall, patient believes their pain is reasonably well controlled in this area and he is in agreement with our treatment plan. August, Osteoarthritis of right shoulder (ICD-10 - M19.011) Patients primary complaint today is right shoulder pain. Recent imaging results show evidence of mild degenerative changes. Based on location of pain and exam findings, patient is a candidate for a right intra-articular shoulder joint injection which we will proceed with today in the office. Risks and benefits of procedure explained to patient; patient verbalizes understanding. Patient tolerated well. August, Other spondylosis with myelopathy, cervical region (ICD-10 - M47.12) Patient is voicing minimal complaints of cervical pain at this time. He attributes this to a recent cervical epidural steroid injection. We will continue to monitor his symptoms in this region. In the future if the pain persists, particularly muscular pain in this region, we can consider trigger point injections. Anatomy of spine discussed in detail with patient in regards to patients condition. Overall, patient believes their pain is reasonably well controlled and he is in agreement with our treatment plan. August, Other chronic pain (ICD-10 - G89.29) August, Other Above note writ ten by Kevyn Corona MA, [employer]. Edited and approved by Dr. Jonathan Samano MD. [facility] Other 04-25-2023 Evaluation note* Encounter Date Diagnosis Assessment Notes Treatment Notes Treatment Clinical Notes Jul, Myalgia (ICD-10 - M79.10) [facility] Other 04-24-2023 Evaluation note* Encounter Date Diagnosis Assessment Notes Treatment Notes Treatment Clinical Notes Jul, Right shoulder pain (ICD-10 - M25.511) [facility] Other 04-21-2023 Evaluation note* Encounter Date Diagnosis Assessment Notes Treatment Notes Treatment Clinical Notes Jul, ASHD (arteriosclerot ic heart disease) (ICD-10 - I25.10) This patient is stable without activity related CP, dyspnea or lightheadedness. They are instructed to continue exercise and AHA diet plan. Jul, Elevated cholesterol (ICD-10 - E78.00) Diet and exercise with continued statin therapy. Jul, Primary hypertension (ICD-10 - I10) This patient is instructed to consume a healthy, low-fat, low-salt diet. They are also encouraged to continue exercise to achieve/maintain a normal BMI. Jul, Gastroesophageal reflux disease with esophagitis without hemorrhage (ICD-10 - K21.00) Diet instructions: Smaller portions, avoid eating and laying flat, avoid eating or drinking prior to bedtime. Weight loss. Jul, Other specified hypothyroidism (ICD-10 - E03.8) Jul, Autoimmune thyroidit is (ICD-10 - E06.3) DUe to check TSH Symptoms of fatigue suspicious for low thyroid. Jul, Myalgia (ICD-10 - M79.10) Discussed PMR, ADR to statins and generalized arthritis. Will send for screening labs. May require referral to Rheumatology Jul, Fatigue, unspecified type (ICD-10 - R53.83) Jul, High risk medication use (ICD-10 - Z79.899) Jul, Screening PSA (prostate specific antigen) (ICD-10 - Z12.5) Didn't complete at wellness. Stressed importance of yearly testing Sent order to complete [facility] Other 03-28-2023 Evaluation note* Encounter Date Diagnosis Assessment Notes Treatment Notes Treatment Clinical Notes Jun, Internal derangement of left shoulder (ICD-10 - M24.812) Jun, Traumatic incomplete tear of left rotator cuff, initial encounter (ICD-10 - S46.012A) MRI results were reviewed with the patient today, a rotator cuff tear was noted on the MRI readings. We discussed the need for surgery to repair the cuff tear, the patient is looking to possibly have surgery sometime in February. We can provide the patient with cortisone injections in the meantime to provide relief. We also did stress the importance to continue to exercise the shoulder, along with some safety while carrying heavy objects. Patient can call anytime after August 2022 for a repeat injection, or to discuss surgery. Jun, Contusion of left shoulder, initial encounter (ICD-10 - S40.012A) [facility] Other 02-27-2023 Evaluation note* Encounter Date Diagnosis Assessment Notes Treatment Notes Treatment Clinical Notes May, Left shoulder pain (ICD-10 - M25.512) We discussed treatment options for the patient's left shoulder pain. Given his increasing pain symptoms as well recent fall, I would like him to be formally evaluated by Orthopedics. May, Other chronic pain (ICD-10 - G89.29) May, Other spondylosis with myelopathy, cervical region (ICD-10 - M47.12) Patient is voicing minimal complaints of cervical pain at this time. He attributes this to a recent cervical epidural steroid injection. We will continue to monitor his symptoms in this region. In the future if the pain persists, particularly muscular pain in this region, we can consider trigger point injections. Anatomy of spine discussed in detail with patient in regards to patients condition. Overall, patient believes their pain is reasonably well controlled and he is in agreement with our treatment plan. May, Right hip pain (ICD-10 - M25.551) Patient is voicing minimal complaints of pain at this time. He attributes this to a recent left trochanteric bursa and hip joint steroid injection. We will continue to monitor his symptoms in this region. Anatomy of spine discussed in detail with patient in regards to patients condition. Overall, patient believes their pain is reasonably well controlled and he is in agreement with our treatment plan. May, Other Above note writ ten by Jeff Nieto LPN, [employer]. Edited and approved by Dr. Jonathan Samano MD. [facility] Other 02-27-2023 Evaluation note* Encounter Date Diagnosis Assessment Notes Treatment Notes Treatment Clinical Notes May, Internal derangement of left shoulder (ICD-10 - M24.812) May, Contusion of left shoulder, initial encounter (ICD-10 - S40.012A) We will treat this as a shoulder contusion now. We will begin gentle motion and strength exercise with hopes that the condition will improve with conservative measures. If pain persists and function is not improving we will need to consider MRI to assess for rotator cuff injury or other intra-articular injury. Patient may call in to have MRI ordered in 2-4 weeks if no improvement. A marcaine / kenalog cortisone injection was performed into the subacromial space under sterile technique. Patient tolerated the injection well with no adverse reaction. [facility] Other 02-20-2023 Evaluation note* Encounter Date Diagnosis Assessment Notes Treatment Notes Treatment Clinical Notes May, Acute bronchitis due to other specified organisms (ICD-10 - J20.8) Instructed to use Robitussin or Mucinex for cough, saline or Flonase NS for congestion, Tylenol for pain and fever. May, ASHD (arteriosclerotic heart disease) (ICD-10 - I25.10) This patient is stable without activity related CP, dyspnea or lightheadedness. They are instructed to continue exercise and AHA diet plan. [facility] Other 02-14-2023 Evaluation note* Encounter Date Diagnosis Assessment Notes Treatment Notes Treatment Clinical Notes May, Tongue ulceration (ICD-10 - K14.0) Magic Mouth Wash qid. Refer to ENT May, Hoarseness of voice (ICD-10 - R49.0) Refer to ENT May, Odynophagia (ICD-10 - R13.10) Refer to ENT [facility] Other 01-04-2023 Evaluation note* Encounter Date Diagnosis Assessment Notes Treatment Notes Treatment Clinical Notes Apr, Other chronic pain (ICD-10 - G89.29) Apr, Other spondylosis with myelopathy, cervical region (ICD-10 - M47.12) We discussed treatment options for the patient's persistent cervical pain with occasional raiding symptoms. Patient has exhausted multiple previous treatment options. Given the previous MRI results, as well as location of pain and exam findings, patient is a candidate for a cervical epidural steroid injection which we will proceed with. Risks and benefits of procedure explained to patient; patient verbalizes understanding. Anatomy of spine discussed in detail with patient in regard to patients condition. Apr, Cervical pain (ICD-10 - M54.2) Apr, Right hip pain (ICD-10 - M25.551) We discussed treatment options for the patient's persistent left hip/gluteal pain. Patient shows notable tenderness upon exam over the left trochanteric bursa. Given location of pain and exam findings, patient is a candidate for left intraarticular hip joint and trochanteric bursa injection, which we will proceed with. Risks and benefits of procedure explained to patient; patient verbalizes understanding. Apr, Other Above note writ ten by Jeff Nieto LPN, [employer]. Edited and approved by Dr. Jonathan Samano MD. [facility] Other 11-30-2022 Evaluation note* Encounter Date Diagnosis Assessment Notes Treatment Notes Treatment Clinical Notes Feb, Other chronic pain (ICD-10 - G89.29) Feb, Cervical spondylosis without myelopathy (ICD-10 - M47.812) We discussed treatment options for the patient's persistent neck pain. He shows notable pain consistent with degenerative changes of the cervical spine. We discussed the possible benefit of treatment of the facet region for cervical neck pain. Patient is a reasonable candidate for repeat diagnostic bilateral cervical facet medial branch nerve blocks which we will proceed with. Risks and benefits of procedure explained to patient; patient verbalizes understanding. It was further explained should this provide significant short term relief we will proceed with a subsequent radiofrequency ablation. Anatomy of spine discussed in detail with patient in regard to patients condition. Feb, Cervical pain (ICD-10 - M54.2) Feb, Other Above note writ ten by Jeff Nieto LPN, [employer]. Edited and approved by Dr. Jonathan Samano MD. [facility] Other 11-09-2022 Evaluation note* Encounter Date Diagnosis Assessment Notes Treatment Notes Treatment Clinical Notes Feb, Right hand pain (ICD-10 - M79.641) Feb, Primary osteoarthritis of right hand (ICD-10 - M19.041) Imaging reviewed with patient julia. The patient is suffering from degenerative arthritis. We discussed the conservative treatment options which can be beneficial in relieving pain, including hand occupational therapy, wearing a brace, and non-steroidal anti-inflammatory medication and surgery. We discussed the use of occasional cortisone injections that can provide pain relief. We performed a cortisone injection into the joint under sterile technique. The patient tolerated this well without complication. We discussed that the finger may feel numb and tingle for hours after this injection. [facility] Other 11-07-2022 Evaluation note* Encounter Date Diagnosis Assessment Notes Treatment Notes Treatment Clinical Notes Feb, Other chronic pain (ICD-10 - G89.29) Feb, Cervical spondylosis without myelopathy (ICD-10 - M47.812) We discussed treatment options for the patient's persistent neck pain. He shows notable pain consistent with degenerative changes of the cervical spine. We discussed the possible benefit of treatment of the facet region for cervical neck pain. Patient is a reasonable candidate for diagnostic bilateral cervical facet medial branch nerve blocks which we will proceed with. Risks and benefits of procedure explained to patient; patient verbalizes understanding. It was further explained should this provide significant short term relief we will proceed with a repeat block and subsequent radiofrequency ablation. Anatomy of spine discussed in detail with patient in regard to patients condition. Feb, Cervical pain (ICD-10 - M54.2) Feb, Other Above note writ ten by Jeff Nieto LPN, [employer]. Edited and approved by Dr. Jonathan Samano MD. [facility] Other 06-22-2022 Evaluation note* Encounter Date Diagnosis Assessment Notes Treatment Notes Treatment Clinical Notes Sep, Primary osteoarthritis 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 (ICD-10 - M16.11) Sep, Primary osteoarthritis of left hip (ICD-10 - M16.12) Sep, S/P total left hip arthroplasty (ICD-10 - Z96.642) Sep, Other [facility] on 07/04/2021 Doing well. Again discussed getting permanent inserts placed or considering trial of no inserts and physical therapy to really work on pelvic girdle muscles so he is use to his leg lengths but at this point he is happy with just putting an insert into his shoe. Discussed post-op dental prophylaxis. Shared decision made to continue prophylactic antibiotics indefinitely. Follow-up at 1 year post-op for repeat examination and repeat x-rays. Patient instructed to call with any questions or concerns. [facility] Other 06-06-2022 Evaluation note* Encounter Date Diagnosis Assessment Notes Treatment Notes Treatment Clinical Notes Sep, Right hand pain (ICD-10 - M79.641) Sep, Arthritis of right hand (ICD-10 - M19.041) Right long finger MCP joint injected with cortisone under sterile technique, patient tolerated well. Will discuss surgical options with Dr Nichole [facility] Other 05-11-2022 Evaluation note* Encounter Date Diagnosis Assessment Notes Treatment Notes Treatment Clinical Notes August, Primary osteoarthritis 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 (ICD-10 - M16.11) August, Primary osteoarthritis of left hip (ICD-10 - M16.12) August, S/P total left hip arthroplasty (ICD-10 - Z96.642) August, Other [facility] on 07/04/2021 Doing well Patient may continue increasing activities as tolerated. Continue taking [id number] anti-inflammatori es as needed for assistance with swelling and pain associated with the operative extremity. Follow-up in 6 weeks for repeat examination and repeat x-rays. [facility] Other 04-13-2022 Evaluation note* Encounter Date Diagnosis Assessment Notes Treatment Notes Treatment Clinical Notes Jul, Primary osteoarthritis 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 (ICD-10 - M16.11) Jul, Primary osteoarthritis of left hip (ICD-10 - M16.12) Jul, Other [facility] on 07/04/2021 Doing well. Steri-Strips applied. Discussed the leg length discrepancy. He is wearing inserts in the nonoperative shoe which does make him feel better. Patient may continue activities as tolerated. They are weightbearing as tolerated to the operative extremity. Patient is progressing with home health & physical therapy. We made the shared decision to discontinue physical therapy. Patient instructed to continue weaning off narcotic pain medication. They can take [id number] anti-inflammatories as needed for assistance with swelling and pain associated with the operative extremity. Patient to continue their aspirin DVT prophylaxis as previously instructed. This includes wearing their COLLINS hose on the operative extremity for another two weeks. Follow-up in 4 weeks for repeat examination and x-rays of the left hip. Please note that the patient should take his inserts out of the nonoperative shoe for his standing weightbearing pelvis x-ray. [employer] Other 03-18-2022 Evaluation note* Encounter Date Diagnosis Assessment Notes Treatment Notes Treatment Clinical Notes Jun, Other Prolonged Services 1. H and P date: 06/17/2021 2. Diagnosis: Left hip primary osteoarthritis 3. Counseling: Patient provided education at his history and physical. 4. Coordination of care: The patient was discussed at today's total joints meeting with anesthesia, OR staff, and implant reps in an effort to coordinate the patient's care during the perioperative period. The anesthesiologist was involved in discussions regarding the patient's pain management such as regional blocks, anesthesia plans the day of surgery such as general versus spinal, as well as a final review of lab work to ensure the patient could proceed with surgery safely. The mall manager was vital for surgery timing and scheduling purposes. The implant rep was also available for necessary discussions regarding preoperative templates that were created on preoperative x-rays to ensure the appropriate implants and sizes of implants would be available the day of surgery. The patient's discharge plan was also discussed and the final decision was confirmed. 5. Medication Changes: None 6. Lab Tests: The patient's screening tests including albumin levels, vitamin D levels, hemoglobin, hemoglobin A1c, cotinine serum level, and MRSA nasal cultures were all reviewed to ensure appropriate perioperative care can be performed. This included selection of perioperative antibiotics, surgical dressing, and any contact precautions that may need to be enacted. The patient's presurgical testing lab work was also reviewed. This included a CBC and BMP. This lab work was discussed with anesthesia during today's total joints meeting to ensure the patient could proceed with surgery safely. Informed anesthesia that the patient does have a history of ethanol abuse. 7. Review of reports/records: The surgical clearance information provided by the patient's PCP and if deemed necessary, other specialists, was reviewed. Patient received surgical clearance by his primary care provider, Dr. Brower. He did end up getting an echo and a heart cath by his golf club repairer. He was then cleared from a cardiology standpoint. Any recommendations made by these care providers were taken into consideration for the patient's perioperative and postoperative treatment plans. Prolonged services time spent: 33 minutes [employer] Other 03-11-2022 Evaluation note* Encounter Date Diagnosis Assessment Notes Treatment Notes Treatment Clinical Notes Jun, Primary osteoarthritis 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 (ICD-10 - M16.11) Jun, Primary osteoarthritis of left hip (ICD-10 - M16.12) Jun, Other 1. Left PETER Home Medications - DVT prophylaxis: ASA - NSAID: Celebrex - Disposition: Same-day discharge-lives at home with his and she will be around for the postoperative period Joints Meeting Checklist - Pharmacy: [facility] to bed - Approach/Technique: anterior, [place] bed - Implants: Avenir Complete/G7; - Anesthesia: general - Blocks: Fascia iliaca - Preop Antibiotics: Ancef - TXA: yes-systemic - Positioning/OR Bed: supine on [place] bed - Intraop X-ray: yes - Otoole: no - Tourniquet: no - Antibiotic powder: yes-2 grams of vanc - Antibiotic cement: no - Dressing: Zipline and Prevena 14-day The patient has tried and failed all conservative treatment options to include: activity modification, physical therapy, oral anti-inflammatories , and intra-articular steroid injections. We will move forward with the definitive treatment option and schedule the patient for the above mentioned procedure. The risks involved with surgery and postoperative complications were discussed in relation to the patient's non-modifiable risk factors including but not limited to the following: Coronary artery disease status post bypass Hypertension Hyperlipidemia All questions were answered after discussing these increased risks. The patient voiced understanding of these increased risks and still wishes to proceed with surgery. The risks involved with surgery and postoperative complications were discussed in relation to the patient's modifiable risk factors including but not limited to the following: Ethanol abuse All questions were answered after discussing these increased risks. The patient voiced understanding of these increased risks and still wishes to proceed with surgery. The risks and benefits of the surgery were reviewed in depth with the patient, and all questions were answered. Informed consent was obtained. The risks and potential complications of the surgery include, but are not limited to: avascular necrosis, nonunion, nerve injury, blood vessel injury, excessive bleeding, blood transfusion, infection, persistent pain, loss of fixation, failure of the implant, deep vein thrombosis, pulmonary embolus, loss of limb, fracture, leg length discrepancy, and . Patient voiced understanding of these risks and has elected to proceed with the above surgery. [employer] Other 11-16-2021 Evaluation note* Encounter Date Diagnosis Assessment Notes Treatment Notes Treatment Clinical Notes Feb, Other spondylosis with radiculopathy, lumbar region (ICD-10 - M47.26) Patient's main complaint is his pain radiating into the posterior aspect of his lower extremities. Patient has failed several conservative treatment options. Based on MRI findings and exam findings, patient is a candidate for a lumbar epidural steroid injection which we will proceed with. Risks and benefits of procedure explained to patient; patient verbalizes understanding. Based on patient's surgical history, we will proceed with this at the L1/L2 level. Anatomy of spine discussed in detail with patient in regards to patients condition. Feb, Left hip pain (ICD-10 - M25.552) Currently tolerable. We will continue to monitor this. Feb, Lumbar degenerative disc disease (ICD-10 - M51.36) Feb, Right hip pain (ICD-10 - M25.551) Currently tolerable. We will continue to monitor this. Feb, Other chronic pain (ICD-10 - G89.29) Feb, Other Above note writ ten by Erica Valenzuela CMA, Launch Leader. Edited and approved by Dr. Jonathan Samano MD. [facility] [employer] Other 09-29-2021 Evaluation note* Encounter Date Diagnosis Assessment Notes Treatment Notes Treatment Clinical Notes Dec, Other spondylosis with radiculopathy, lumbar region (ICD-10 - M47.26) We may consider treatment of the lumbar spine should he not benefit from the upcoming hip injection. Anatomy of spine discussed in detail with patient in regards to patients condition. Dec, Left hip pain (ICD-10 - M25.552) Patient notes minimal complaints of left hip/groin pain at this time. He attributes this to the recent left intraarticular hip and trochanteric bursa injections we performed. Patient is pleased with these results and notes improvement in daily activities. We will plan on proceeding with repeat procedures on an as needed basis. Anatomy of spine discussed in detail with patient in regards to patients condition. Overall, patient believes their pain is reasonably well controlled and he is in agreement with our treatment plan. Dec, Lumbar degenerative disc disease (ICD-10 - M51.36) Dec, Right hip pain (ICD-10 - M25.551) Dec, Other chronic pain (ICD-10 - G89.29) Dec, Other Above note writ ten by Erica Valenzuela CMA, Launch Leader. Edited and approved by Dr. Jonathan Samano MD. [employer] Other Evaluation note* Diagnosis Swelling of knee joint- Primary Effusion of lower leg joint [facility] [employer] [employer] Other Evaluation noteNo assessment information available [facility] Work Phone: Evaluation note* Diagnosis PMR (polymyalgia rheumatica) (HCC)- Primary Polymyalgia rheumatica Elevated LFTs Other abnormal blood chemistry Anemia of chronic disease Anemia of other chronic disease Elevated sed rate Elevated sedimentation rate Elevated C-reactive protein (CRP) Vitamin D deficiency Unspecified vitamin D deficiency Vitamin B12 deficiency Other B-complex deficiencies Hyperuricemia Other abnormal blood chemistry Screening-pulmonary TB Screening examination for pulmonary tuberculosis HyperCKemia Other nonspecific abnormal serum enzyme levels Elevated aldolase level Other nonspecific abnormal serum enzyme levels Steroid-induced osteoporosis Other osteoporosis 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 Osteoarthrosis involving, or with mention of more than one site, but not specified as generalized, multiple sites Bilateral hand pain Pain in limb Rotator cuff arthropathy of left shoulder Pain in right hip 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, 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 Encounter for long-term (current) use of steroids CHENCHO positive Other and unspecified nonspecific immunological findings Bilateral hand swelling [facility] Diagnosis PMR (polymyalgia rheumatica) (HCC)- Primary Polymyalgia rheumatica Elevated sed rate Elevated sedimentation rate Elevated C-reactive protein (CRP) Vitamin D deficiency Unspecified vitamin D deficiency Vitamin B12 deficiency Other B-complex deficiencies [facility] Diagnosis PMR (polymyalgia rheumatica) (HCC)- Primary Polymyalgia rheumatica Elevated sed rate Elevated sedimentation rate Elevated C-reactive protein (CRP) Idiopathic chronic gout of multiple sites without tophus 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 (tophi) 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 Secondary osteoarthritis of multiple sites Osteoarthrosis involving, or with mention of more than one site, but not specified as generalized, multiple sites Rotator cuff arthropathy of left shoulder Pain in right hip 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, pelvic region and thigh halfway current use of 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 Encounter for long-term (current) use of steroids CHENCHO positive Other and unspecified nonspecific immunological findings Chronic pain of both knees Bilateral hand pain Pain in limb [facility] Diagnosis PMR (polymyalgia rheumatica) (HCC)- Primary Polymyalgia rheumatica Elevated sed rate Elevated sedimentation rate Elevated C-reactive protein (CRP) [facility]* Diagnosis Hypomagnesemia- Primary Disorders of magnesium metabolism [facility] Diagnosis Steroid-induced osteoporosis Other osteoporosis [facility] Diagnosis Onset Date Resolution Status Aftercare following hip joint replacement surgery acute History of total replacement 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 acute Aftercare following hip joint replacement surgery acute History of total replacement 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 acute ASHD (arteriosclerotic heart disease) acute GENESIS (generalized anxiety disorder) acute Hyperlipidemia acute Hypertension acute Hypothyroidism acute [facility] Work Phone: Evaluation note* Diagnosis PMR (polymyalgia rheumatica) (HCC)- Primary Polymyalgia rheumatica Elevated sed rate Elevated sedimentation rate Elevated C-reactive protein (CRP) Vitamin D deficiency Unspecified vitamin D deficiency [facility] Diagnosis Persistent atrial fibrillation (Multi)- Primary Atrial fibrillation Multi-vessel coronary artery stenosis Cardiomyopathy, ischemic Other specified forms of chronic ischemic heart disease Mixed hyperlipidemia 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 (Multi) Atrial fibrillation Status post aorto-coronary artery bypass graft halfway current use of anticoagulant therapy BMI 35.0-35.9,adult documented in this encounter [facility] Work Phone: Evaluation note* Diagnosis Onset Date Resolution Status Aftercare following hip joint replacement surgery acute History of total replacement 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 acute Aftercare following hip joint replacement surgery acute History of total replacement 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 acute ASHD (arteriosclerotic heart disease) acute Atrial fibrillation acute GENESIS (generalized anxiety disorder) acute Hypertension acute [facility] Work Phone: Evaluation note* Diagnosis 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 (Multi) Atrial fibrillation documented in this encounter [facility] Work Phone: Evaluation note* Diagnosis Onset Date Resolution Status Aftercare following hip joint replacement surgery acute History of total replacement 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 acute Aftercare following hip joint replacement surgery acute History of total replacement 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 acute ASHD (arteriosclerotic heart disease) acute Atrial fibrillation acute GENESIS (generalized anxiety disorder) acute Hypertension acute Diverticulitis acute Elevated lactic acid level a cute Migraine acute SIRS (systemic inflammatory response syndrome) acute [facility] Work Phone: Evaluation note* Diagnosis Onset Date Resolution Status Aftercare following hip joint replacement surgery acute History of total replacement 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 acute Aftercare following hip joint replacement surgery acute History of total replacement 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 acute ASHD (arteriosclerotic heart disease) acute Atrial fibrillation acute GENESIS (generalized anxiety disorder) acute Hypertension acute Acute diverticulitis acute Diverticulitis acute Elevated lactic acid level a cute Migraine acute Sepsis acute SIRS (systemic inflammatory response syndrome) acute [facility] Work Phone: Evaluation note* Diagnosis PMR (polymyalgia rheumatica) ([facility])- Primary Polymyalgia rheumatica Elevated sed rate Elevated sedimentation rate Elevated C-reactive protein (CRP) [facility] Diagnosis Onset Date Resolution Status Aftercare following hip joint replacement surgery acute History of total replacement 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 acute ASHD (arteriosclerotic heart disease) acute GENESIS (generalized anxiety disorder) acute Acute diverticulitis acute Acute diverticulitis acute ASHD (arteriosclerotic heart disease) acute Inflammatory polyarthritis a cute Persistent atrial fibrillation acute Primary hypertension acute [facility] Work Phone: Evaluation note* Diagnosis 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 (tophi) Hyperuricemia Other abnormal blood chemistry [facility] Diagnosis Onset Date Resolution Status Acute diverticulitis acute Elevated lactic acid level r esolved Acute diverticulitis acute ASHD (arteriosclerotic heart disease) acute Inflammatory polyarthritis a cute Persistent atrial fibrillation acute Primary hypertension acute Biceps tendonitis on right a cute Rotator cuff syndrome of right shoulder acute Traumatic complete tear of left rotator cuff acute [facility] Work Phone: Evaluation note* Diagnosis Onset Date Resolution Status Elevated lactic acid level r esolved ASHD (arteriosclerotic heart disease) acute Inflammatory polyarthritis a cute Primary hypertension acute Biceps tendonitis on right a cute Rotator cuff syndrome of right shoulder acute Traumatic complete tear of left rotator cuff acute ASHD (arteriosclerotic heart disease) acute Atrial fibrillation acute GENESIS (generalized anxiety disorder) acute Gastroesophageal reflux dise ase with esophagitis without hemorrhage acute Hypercholesterolemia acute FER (obstructive sleep apnea) acute Primary hypertension acute Screening PSA (prostate specific antigen) noneactive H/O diverticulitis of colon noneactive [facility]ness examination [facility] Work [facility]: History and physical note Author Elliott Talley [facility] August 30, 2023 11:34pm Note Date/Time August 30, 2023 11:04 pm [facility] [address] [place] [address] Hospitalist H&P Signed Patient: Esme Steven MR#: [id number] : 1960 Acct:[id number] Age/Sex: 62 / M Adm Date: 4 Loc: Room: [address] [place] [address] Type: ADM IN Attending Dr: Elliott Talley MD Copies to: DO Elliott Hannah MD~ HPI DATE OF EXAMINATION: 08/30/23 CHIEF COMPLAINT: Dizziness, abdominal pain HISTORY OF PRESENT ILLNESS: Mr. Steven is a 62-year-old male with PMH of CAD status post CABG x 4, atrial fibrillation, HTN, GERD, HLD, obesity, FER who presents to the emergency department today with complaints of dizziness, general malaise and abdominal pain. Patient states that yesterday he was in his normal state of health. He notes that he awoke this morning with headache and lightheadedness. He did not think much of it, and was able to go out and have breakfast and go to work. He notes that throughout the day, he had worsening abdominal discomfort and pain. His lightheadedness worsened as well. He notes chronic loose in stools, but nowhematochezia, major changes in his stool pattern in the last day or 2. He had his bring him into the emergency department for further evaluation. In the ED, patient tachycardic in the low 100s and sinus tachycardia. In addition, initial temperature was 102F. Workup included CBC which did demonstrate leukocytosis of 14.5. Initial lactic acid was 2.4. Chemistry was largely within normal limits. Cultures were obtained and patient was given IV fluids with Compazine and Benadryl. CT of the head without contrast, CTA of thehead and neck and CT of the abdomen pelvis were performed. There is some mild carotid artery plaque noted, but otherwise head imaging was unremarkable for acute findings. CT of the abdomen pelvis noted acute sigmoid diverticulitis findings. He was given IV Unasyn for sepsis coverage. Case was discussed between myself and ED attending and patient was recommended for admission for further inpatient management. Review of Systems Review of Systems Review of systems: 10 point ROS reviewed and is negative except for that which is noted above in HPI [facility] Medical History (Updated 08/30/23 @ 23:33 by Elliott Talley MD) Atrial fibrillation GENESIS (generalized anxiety disorder) ASHD (arteriosclerotic heart disease) Pseudogout Primary osteoarthritis 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 Primary hypertension Polymyalgia rheumatica Persistent atrial fibrillation FER (obstructive sleep apnea) Mild episode of recurrent major depressive disorder Lumbar spondylosis Internal derangement of left shoulder Inflammatory polyarthritis Hypomagnesemia Gastroesophageal reflux disease with esophagitis without hemorrhage Elevated cholesterol Autoimmune thyroiditis History of left heart catheterization (LHC) ASHD (arteriosclerotic heart disease) GENESIS (generalized anxiety disorder) Bulging lumbar disc Osteoarthritis Gout BPH (benign prostatic hyperplasia) Hypothyroidism Hypertension Hyperlipidemia Myocardial infarct Mitral valve disorder Surgical History Hx of total knee arthroplasty S/P total left hip arthroplasty Presence of right artificial hip joint History of bilateral knee replacement Hx of total knee arthroplasty History of vasectomy History of appendectomy History of bilateral knee arthroplasty History of lumbar surgery History of cardiac catheterization multiple S/P CABG x 4 2014 H/O heart artery stent prior to 2014 Family History Mother Kidney stones Pacemaker Stroke History of stroke Heart disease Father CAD (coronary artery disease) Brother Brain aneurysm Agent orange exposure Social History Smoking Status: Never smoker Substance Use Type: Alcohol Substance Abuse Comment: 4 beers daily, has medical marijuana card but states never use thc Meds Medications and Allergies Allergies prednisone Allergy (Unknown, Verified 08/30/23 16:28) Agitated, HEADACHES Home Medications aspirin 81 mg tablet,delayed release 81 mg PO DAILY [place] prevention 01/29/17 [History Confirmed 08/30/23] atorvastatin 80 mg tablet (Lipitor) 80 mg PO QHS 01/29/17 [History Confirmed 08/30/23] allopurinol 100 mg tablet 100 mg PO QAM gout prevention 06/20/21 [History Confirmed 08/30/23] levothyroxine 150 mcg tablet (Synthroid) 150 mcg PO QAM 06/20/21 [History Confirmed 08/30/23] metoprolol succinate 50 mg tablet,extended release 24 hr 50 mg PO QAM 06/20/21 [History Confirmed 08/30/23] valacyclovir 500 mg tablet 500 mg PO QAM cold sores 06/20/21 [History Confirmed 08/30/23] alprazolam 0.5 mg tablet 0.5 mg PO QHS 30 days #30 tabs 06/04/23 [Rx Confirmed 08/30/23] apixaban 5 mg tablet 5 mg PO BID 06/28/23 [History Confirmed 08/30/23] sildenafil 100 mg tablet 100 mg PO DAILY PRN sexual activity 06/28/23 [History Confirmed 08/30/23] escitalopram oxalate 20 mg tablet 20 mg PO DAILY 90 days #90 tabs 06/29/23 [Rx Confirmed 08/30/23] methylprednisolone 4 mg tablet (Medrol) 4 mg PO Q2D 08/01/23 [History Confirmed 08/30/23] colchicine 0.6 mg capsule 0.6 mg PO DAILY 08/02/23 [History Confirmed 08/30/23] Exam Physical Exam Vital Signs: Temp Pulse Resp BP Pulse Ox O2 Del Method 99.8 F H 86 21 107/67 93 L Room Air 08/30/23 20:00 08/30/23 22:00 08/30/23 22:00 08/30/23 22:00 08/30/23 22:00 08/30/23 22:00 Narrative: Constitutional: Elderly obese WM, resting in bed, and mild discomfort from abdominal pain. Flushed HEENT: Moist mucous membranes, neck supple, no JVD Cardiovascular: RRR, no M/R/G, normal S1 and S2 Respiratory: Clear to auscultation bilaterally, no wheezes, rales or rhonchi GI: Soft, obese abdomen. Mildly tender to palpation in the left lower quadrant,NABS : Deferred Extremities: No clubbing, cyanosis or edema Neuro: AAOx3, no focal deficits Skin: Erythema on the cheeks and present on the back throughout. Small bruises and abrasions noted in the bilateral upper extremities Psych: Calm, cooperative and conversant Results - Hospitalist H&P Lab Results Labs: Laboratory Last Values Corrected WBC 14.5 X10E3/uL (4.1-10.5) H 08/30/23 18:20 Uncorrected WBC Count 14.5 x10E3/uL (4.1-10.5) H 08/30/23 18:20 RBC 4.70 X10E6/uL (3.90-5.60) 08/30/23 18:20 Hgb 16.2 g/dL (13.0-17.0) 08/30/23 18:20 Hct 48.1 % (38.8-50.0) 08/30/23 18:20 MCV 102.3 fl (83.5-101) H 08/30/23 18:20 MCH 34.5 pg (27.5-35.2) 08/30/23 18:20 MCHC 33.7 g/dL (32.5-35.6) 08/30/23 18:20 RDW 15.1 % (12.0-14.8) H 08/30/23 18:20 Plt Count 147 x10E3/uL (150-450) L 08/30/23 18:20 MPV 8.7 fl (6.6-10.1) 08/30/23 18:20 Neut % (Auto) 92.4 % (.) 08/30/23 18:20 Lymph % (Auto) 4.4 % (.) 08/30/23 18:20 Bureau % (Auto) 2.3 % (.) 08/30/23 18:20 Eos % (Auto) 0.1 % (.) 08/30/23 18:20 Baso % (Auto) 0.8 % (.) 08/30/23 18:20 Nucleat RBC Rel Count 0.0 /100 WBC (0-0.5) 08/30/23 18:20 Neut # (Auto) 13.4 x10E3/uL (1.8-7.7) H 08/30/23 18:20 Lymph # (Auto) 0.6 x10E3/uL (1.00-4.8) L 08/30/23 18:20 Bureau # (Auto) 0.3 x10E3/uL (0.0-0.8) 08/30/23 18:20 Eos # (Auto) 0.0 x10E3/uL (0.0-0.45) 08/30/23 18:20 Baso # (Auto) 0.1 x10E3/uL (0.0-0.2) 08/30/23 18:20 Monocyte Dist Width 21.88 % (0.00-20.00) H 08/30/23 18:20 PT 12.8 Seconds (9.0-12.9) 08/30/23 18:20 INR 1.1 08/30/23 18:20 APTT 25.5 Seconds (25.1-36.5) 08/30/23 18:20 PHA Creatinine Clear 82.75 08/30/23 18:20 Sodium 136 mmol/L (136-145) 08/30/23 18:20 Potassium 3.3 mmol/L (3.5-5.1) L 08/30/23 18:20 Chloride 100 mmol/L (98-107) 08/30/23 18:20 Carbon Dioxide 25.1 mmol/L (21.0-31.0) 08/30/23 18:20 Anion Gap 14.2 mEq/L (6.0-15.0) 08/30/23 18:20 BUN 21 mg/dL (7-25) 08/30/23 18:20 Creatinine 1.11 mg/dL (0.70-1.30) 08/30/23 18:20 Est GFR (CKD-EPI) > 60.0 mL/Min 08/30/23 18:20 Glucose 123 mg/dL (70-100) H 08/30/23 18:20 Lactic Acid 1.9 mmol/L (0.5-2.2) 08/30/23 21:02 Calcium 9.3 mg/dL (8.6-10.3) 08/30/23 18:20 Total Bilirubin 0.9 mg/dl (0.3-1.0) 08/30/23 18:20 Direct Bilirubin 0.20 mg/dL (0.03-0.18) H 08/30/23 18:20 Indirect Bilirubin 0.7 mg/dL 08/30/23 18:20 AST 27 U/L (13-39) 08/30/23 18:20 ALT 44 U/L (7-52) 08/30/23 18:20 Alkaline Phosphatase 46 U/L (34-104) 08/30/23 18:20 Total Creatine Kinase 37 U/L (30-223) 08/30/23 18:20 Troponin I High Sens 16.9 pg/mL (0.0-20.0) 08/30/23 19:57 B-Natriuretic Peptide 401.0 pg/mL (5-100) H 08/30/23 18:20 Total Protein 7.0 gm/dL (6.4-8.9) 08/30/23 18:20 Albumin 4.2 gm/dL (3.5-5.7) 08/30/23 18:20 Globulin 2.8 gm/dL 08/30/23 18:20 Albumin/Globulin Ratio 1.5 08/30/23 18:20 Lipase 13.0 U/L (11.0-82.0) 08/30/23 18:20 Urine Color Yellow (Yellow) 08/30/23 18:45 Urine Appearance Clear (Clear) 08/30/23 18:45 Urine pH 5.5 (5.0-9.0) 08/30/23 18:45 Ur Specific [place] 1.016 (1.001-1.030) 08/30/23 18:45 Urine Protein Negative mg/dL (Negative) 08/30/23 18:45 Urine Glucose (UA) Normal mg/dL (Normal) 08/30/23 18:45 Urine Ketones Negative (Negative) 08/30/23 18:45 Urine Occult Blood Negative (Negative) 08/30/23 18:45 Urine Nitrite Negative (Negative) 08/30/23 18:45 Urine Bilirubin Negative (Negative) 08/30/23 18:45 Urine Urobilinogen Normal mg/dL (Normal) 08/30/23 18:45 Ur Leukocyte Esterase Negative (Negative) 08/30/23 18:45 SARS-CoV-2 Rap RNA(RT-PCR) Negative (Negative) 08/30/23 18:49 Microbiology Results Micro: Microbiology - Results from entire visit 08/30/23 18:49 Nasopharyngeal SARS-CoV-2, Influenza & RSV (PCR) - Final Assessment & Plan Assessment/Plan (1) Sepsis: (2) Acute diverticulitis: Plan Sepsis Acute diverticulitis Lactic acidosis Suspect that patient's GI findings on CT scan are etiology of infection. No other clear source at this time. -Continue antibiotics with IV Zosyn -Follow-up blood, urine cultures -Supportive care otherwise Chronic glucocorticoid use Patient is very flushed, and has been on Medrol for his osteoarthritis for long period of time. Has some cushingoid features -Check cortisol level -Continue Medrol every other day Other chronic medical conditions noted below, continue home regimens unless otherwise specified: Osteoarthritis-continue Medrol CAD status post CABG x 4-ASA, metoprolol, atorvastatin Atrial fibrillation-recent cardioversion, continue Eliquis, metoprolol, Hypertension GERD Hypothyroidism Hyperlipidemia-atorvastatin FER-recommend CPAP GENESIS CODE STATUS: Full code IP vs OBS Justification Based on differential dx, clinical care plan, and risk of adverse events, if untreated, in my clinical judgement this patient requires an acute care setting as: INPATIENT because of an expectation of an over 2 midnight stay. Estimated length of stay (# of days): 3 Quality Measures SEPSIS Tissue perfusion reassessment (select if applicable): Tissue perfusion reassessed after bolus given FOCUSED EXAM Capillary refill: Capillary refill < 3 seconds Peripheral pulses: Pulses present bilaterally Skin color/condition: Warm and pink Documented By: Elliott Talley MD [id number] Signed By: <Electronically signed by Elliott Talley MD> 08/30/23 6727 [facility] Work Phone: [facility] Narrative - Reported* Type Description Date Medical History CAD with 10 stints Medical History L/S spine artificial discs times two Medical History TKR bilateral Medical History hypothyroid Medical History hypertension Medical History RA Surgical History lumbar TDR remote Surgical History TKR bilateral remote Surgical History stint placement for CAD times 1 0 remote Surgical History quad bipass 07/17/14 Surgical History double knee replacement Dr Harmony willams 2012 Hospitalization History see above [employer] Other [facility] general Narrative - Reported* Type Description Date Medical History CAD with 10 stints Medical History L/S spine artificial discs times two Medical History TKR bilateral Medical History hypothyroid Medical History hypertension Surgical History lumbar TDR remote Surgical History TKR bilateral remote Surgical History stint placement for CAD times 1 0 remote Surgical History quad bipass 07/17/14 Surgical History double knee replacement 2012 Hospitalization History see above [employer] Other [facility] general Narrative - Reported* Type Description Date Medical History CAD with 10 stints Medical History L/S spine artificial discs times two Medical History TKR bilateral Medical History hypothyroid Medical History hypertension Surgical History lumbar TDR remote Surgical History TKR bilateral remote Surgical History stint placement for CAD times 1 0 remote Surgical History quad bipass 07/17/14 Surgical History double knee replacement Dr Harmony willams 2012 Hospitalization History see above [employer] [facility] Other history general Narrative - Reported* Type Description Date Medical History CAD with 10 stints Medical History L/S spine artificial discs times two Medical History TKR bilateral Medical History hypothyroid Medical History hypertension Medical History RA Surgical History lumbar TDR remote Surgical History TKR bilateral remote Surgical History stint placement for CAD times 1 0 remote Surgical History quad bipass 07/17/14 Surgical History double knee replacement Dr Harmony willams 2012 Surgical History LTHA 07/04/21 Hospitalization History see above [employer] Other [facility] general Narrative - Reported* Type Description Date Medical History CAD with 10 stints Medical History L/S spine artificial discs times two Medical History TKR bilateral Medical History hypothyroid Medical History hypertension Medical History RA Medical History FER Surgical History lumbar TDR remote Surgical History TKR bilateral remote Surgical History stint placement for CAD times 1 0 remote Surgical History quad bipass 07/17/14 Surgical History double knee replacement Dr Harmony willams 2012 Surgical History LTHA 07/04/21 Hospitalization History see above [employer] Other history general Narrative - Reported* Type Description Date Medical History ASHD Medical History L/S spine artificial discs times two Medical History TKR bilateral Medical History hypothyroid Medical History hypertension Medical History OA Medical History FER Surgical History lumbar TDR remote Surgical History TKR bilateral remote Surgical History stint placement for CAD times 1 0 remote Surgical History quad bipass 07/17/14 Surgical History double knee replacement Dr Harmony willams 2012 Surgical History LTHA 07/04/21 Hospitalization History see above [employer] Other history general Narrative - Reported* Type Description Date Medical History ASHD Medical History L/S spine artificial discs times two Medical History TKR bilateral Medical History hypothyroid Medical History hypertension Medical History OA Medical History FER Surgical History lumbar TDR remote Surgical History TKR bilateral remote Surgical History stint placement for CAD times 1 0 remote Surgical History quad bipass 07/17/14 Surgical History double knee replacement Dr Harmony willams 2012 Surgical History Left PETER 07/04/21 Surgical History Right PETER 02/2023 Hospitalization History see above [employer] Other History general Narrative - Reported* Type Description Date Medical History ASHD Medical History L/S spine artificial discs times two Medical History TKR bilateral Medical History hypothyroid Medical History hypertension Medical History OA Medical History FER Surgical History lumbar TDR remote Surgical History TKR bilateral remote Surgical History CABG x 4 07/17/14 Surgical History Left PETER 07/04/21 Surgical History Right PETER 02/2023 Surgical History LHC 05/2021 Surgical History LHC w/ PTCA/stent 2005 Surgical History LHC 2007 Surgical History LHC 2008 Surgical History LHC 2010 Surgical History LHC w/ PTCA/stent 2014 Hospitalization History see above [employer] Other Hospital Discharge instructions Additional Instructions Joint Replacement Discharge Instructions Your safety during your recovery process is important to us. Please seek immediate emergency care if you have sudden chest pain or shortness of breath. Additionally, please call our office at [phone] should any of the following occur: wound bleeding or an increase in bleeding, increased swelling, redness around the incision, fever over 101 F, excessive vomiting, nosebleeds, or bloody stool. Discharge Medications (scheduled) indicated with an X: __X___ Senokot-S 8.6-50mg tablet. Take 2 tablets by mouth daily for 30 days or as long as you are taking a narcotic pain medication (tramadol, oxycodone, or morphine). Begin the day of surgery. ____X___ Miralax 17g packet. Drink 1 packet mixed with 8 ounces of water daily for 7 days. Begin the morning after surgery. Begin your home anticoagulation medication, the morning after surgery. Take as prescribed like you were before surgery. Ecotrin (coated aspirin) 81mg tablet by mouth twice daily for 35 days. Begin the morning after surgery. Protonix (pantoprazole) 20mg tablet by mouth daily for 35 days. Begin the morning after surgery. ___X__ Xarelto (rivaroxaban) 10mg table by mouth daily for 35 days. Begin the morning after surgery. ___ __ Celebrex (celecoxib) 200mg tablet by mouth twice daily for 30 days. Take with food. Begin the morning after surgery. ___X__ Duricef (cefadroxil) 500mg tablet by mouth twice daily for 7 days. Take with food. Begin the morning after surgery. Bactrim-DS (sulfamethoxazole & trimethoprim) 800mg-160mg tablet by mouth twice daily for 7 days. Take with food. Begin the morning after surgery. Cleocin (clindamycin) 300mg tablet by mouth 3 times (every 8 hours) a day for 7 days. Take with food. Begin the morning after surgery. __X___ Tylenol (acetaminophen) 500mg tablet. Take 2 tablets 3 times (every 8 hours) a day for 30 days. Begin the night of surgery if necessary. Prednisone 10mg tablet. Take 1 tablet daily for 10 days. Begin the morning after surgery. *If you have a patch behind your ear remove it the morning after surgery, discard, and thoroughly wash your hands. Discharge Medications (as needed) indicated with an X: ___X__ Zofran (Ondansetron) 8mg tablet by mouth 3 times (every 8 hours) a day as needed for nausea. Begin the night of surgery if necessary. ___X__ Tramadol (Ultram) 50mg tablet. Take 1 tablet by mouth every 6 hours as needed for pain. Do not take at the same time as oxycodone, MS Contin (morphine extended release), or Dilaudid (hydromorphone). Take with food. Begin the night of surgery. Take around the clock for 24 hours after surgery and then utilize if necessary. ___X__ Oxycodone 5mg tablet. Take 1 tablet by mouth every 4 hours as needed for pain. If pain unrelenting 30 minutes after taking 1 tablet, then take another 1 tablet. Do not take at the same time as MS Contin (morphine extended release), Dilaudid (hydromorphone), or Tramadol (Ultram). Take with food. Begin the night of surgery. Take around the clock for 24 hours after surgery and then utilize if necessary. __X___ MS Contin (morphine extended release) 15mg tablet. Take 1 tablet by mouth every 12 hours as needed for BREAKTHROUGH pain only. If pain unrelenting 30 minutes after you have taken the second oxycodone 5mg tablet, then take 1 MS Contin tablet. Do not take at the same time as oxycodone or Tramadol (Ultram); this is a time-released medication and can only be taken once every 12 hours. Resume oxycodone at next scheduled time (4 hours after the MS Contin tablet). Begin the night of surgery if necessary. Dilaudid (hydromorphone) 2mg tablet. Take 1 tablet by mouth every 8 hours as needed for BREAKTHROUGH pain only. If pain unrelenting 30 minutes after oxycodone, then take 1 Dilaudid tablet. Do not take at the same time as oxycodone or Tramadol (Ultram). Resume oxycodone at next scheduled time (4 hours after the Dilaudid tablet). Begin the night of surgery if necessary. Discharge Instructions: BE SURE YOU HAVE READ THE BOOKLET YOU RECEIVED IN THE OFFICE. Home Health: Home health is a valuable partner in the joint replacement process; they will be your first step to your road of recovery. A therapist will see you the day after your surgery; they will be at your home before noon. They will see you the first three days after surgery and continue working with you until I see you in the office for your 2-week post-op appointment. Follow their instructions. Exercises are to be done several times a day, including the days the therapist does not come to your house! Wound Care: Your surgical incision may be covered with a few different dressings. Your home health physical therapist will remove the gauze dressing the first day after surgery, but they will leave one of the following in place until you see me in the office. Zipline This is a no contact dressing that will stay in place until you are seen in the office for your 2-week post-op appointment. Do not place any ointments, creams, or lotions on your wound. Avoid getting outside on hot days; excessive sweating can increase the risk of wound infection. If there is drainage, place a gauze dressing over the wound, secure with paper tape, and call your therapist. A small amount of drainage is expected. When you do bathe, allow soapy water to run over the dressing site, but do not scrub the incision or the dressing. Pat the dressing site dry with a towel after you shower. DO NOT take a bath, enter a pool, [place]/pond,or ocean until we discuss this at your post-op appointments. Aquacel This is a silver-impregnated dressing with antibiotic properties that will stay in place until you are seen in the office for your 2-week post-op appointment. Do not place any ointments, creams, or lotions around your wound or on the dressing. Avoid getting outside on hot days; excessive sweating can increase the risk of wound infection. If there is drainage, place a gauze dressing over the wound, secure with paper tape, and call your therapist. A small amount of drainage is expected. When you do bathe, allow soapy water to run over the dressing site, but do not scrub the incision or the dressing. Pat the dressing site dry with a towel after you shower. DO NOT take a bath, enter a pool, [place] pond, or ocean until we discuss this at your post-op appointments. Prevena This is a negative pressure wound therapy device with a collection container for any drainage. If this becomes completely full, call your therapist to discuss changing the collection container. This device also has a 14-day battery. Your home health physical therapist will remove the dressing 14 days after your surgery; it will be removed prior to your initial follow up appointment. Do not place any ointments, creams, or lotions around your wound or on the dressing. Avoid getting outside on hot days; excessive sweating can increase the risk of wound infection. When you do bathe, allow soapy water to run over the dressing site, but do not scrub the device or the surrounding skin. DO NOT get the device wet! Pat the dressing site dry with a towel after you shower. DO NOT take a bath, enter a pool, [place]/pond, or ocean until we discuss this at your post-op appointments. What to expect: SWELLING: Ice frequently, a minimum of 4 times a day for 20 minutes at a time for the first 2-3 weeks after surgery, especially after doing your exercises. While icing, elevate your foot above the level of your heart with several pillows under your ankle. DO NOT put pillows under your knee. (KNEE REPLACEMENT ONLY) Avoid prolonged periods of sitting over the first 7 to 10 days after surgery. We recommend that you not sit for more than 45 to 60 minutes at a time. You should get up and move around or lie down and elevate your leg. BRUISING: You will have bruising to some degree; possibly the thigh, calf, ankle, foot, and in some cases the genitalia. Do not be alarmed. The bruising will eventually go away on its own as the body reabsorbs the blood. BLISTERS: Some patients may develop blisters around the knee/hip and/or the incision. Although they can be alarming in appearance, they pose no significant risk to your joint replacement. Leave the blisters alone and allow them to heal on their own. NUMBNESS: Usually normal around the incision. For knee replacements, the outside of the knee may be involved as well. The area of numbness may shrink over time or it could last forever. For hip replacements, you may notice numbness on the outside of the thigh extending down the outside of the knee. The area of numbness may shrink over time or it could last forever. COLLINS hose (stockinette): Wear them for 4 weeks on the operative side and 2 weeks on the nonoperative side. Try to wear these as 24/ as possible to help decrease swelling. Weight Bearing, Walkers, and Canes: Do not remove your knee immobilizer. Do not walk without this until your therapist has removed it either on the first day after surgery or the second day after surgery. Do not attempt to walk without your walker and your transitional care manager until the therapist checks you the following day after surgery and gives you further instruction. Typically, you will start out on a walker, then progress to a cane, and eventually walk without any device. Some of our patients do this within 2 weeks of surgery, while others can take 6 weeks. Pain Medications: You may experience significant pain. Our goal is to make your pain manageable (not absent, since this is usually not realistic) and to allow you to progress with your therapy for your hip or knee. Take your pain medication scheduled for the first 24 hours, then take it as needed. Always take your pain medication with food to decrease nausea and vomiting. Be sure to take stool softeners and/or laxatives as directed. You may take huwq-lqg-cdnrbhj Benadryl if itching occurs without a rash or hives. Icing and elevation will help relieve pain as well, do not underestimate the power of ice and elevation. We do recommend that you stop taking narcotic pain medications by 4-6 weeks after surgery and if necessary, continue to use anti-inflammatory medications such as Mobic (meloxicam), Celebrex (celecoxib), or an ejxe-amg-bvxtilx medication (Aleve, Motrin, Ibuprofen, etc). Driving an automobile: You must be off all narcotic pain medications. If your right leg is involved, that is your braking leg. Your physical therapist needs to help you determine that you can actively and firmly hit the brake and sustain it as this could be a life or situation for you or someone else. You will not be cleared to drive by me or anyone else. It is up to you to know when you feel safe to drive. We do recommend utilizing an empty parking lot to practice and ensure you are able to slam on the brakes if necessary during an emergency. Low Grade Fever (less than 101 F): Low-grade fevers can be treated, but make sure you do not exceed the daily limit of Tylenol. The daily limit on Tylenol (acetaminophen) is 3000 mg in a 24-hour period. If you have procedures done after your joint replacement: Dental procedures (including routine cleaning), prostate surgery, colonoscopy, and other invasive procedures could increase your risk for a total joint infection. During a postoperative visit, be sure to discuss the use of prophylactic antibiotic therapy prior to and sometimes after these invasive procedures. The decision to utilize antibiotics before and/or after these invasive procedures is a shared decision process between you and myself. Constipation: If you develop constipation in spite of taking stool softeners and/or laxatives, follow the protocol below: Day 2 of constipation if no results, use a Dulcolax suppository Day 3 of constipation if no results, use a fleet s enema. If no results by the afternoon, notify our office. Bladder Habits: If you have difficulty urinating or are unable to urinate within 12 hours after arriving home following your surgery, please notify our office immediately. Expectations for Pain Relief after Joint Replacement: Patients predictably improve for up to a year after a hip or knee replacement. It is normal for you to still have some pain in your hip or knee for as much as 3 to 9 months after surgery. The pain relief will come, but you should not expect great relief of pain in less than this time. High demand activities (such as going up and down stairs) frequently take 3 to 9 months before patients feel comfortable doing them. It is permissible to go up and down stairs whenever you can safely navigate them, but it will take much longer to do them normally and with great confidence. Questions or Problems: If you have any questions, problems, or confusion about your recovery after your hip or knee replacement, please feel free to call our office at [phone]. You are a priority of ours and we will not be upset with you if you call. We would much rather you call to confirm aspects of your recovery process as opposed to possibly hindering your recovery with inappropriate care. We are committed to providing you with the best care possible. Sarai Mendez II, MD Updated 06/23/2022[facility] Work Phone: InstructionsNot on filedocumented in this encounter [facility]ructions[facility] on filedocumented in this encounter [facility]ructionsNot on filedocumented in this encounter [facility] SystemInstructionsNot on filedocumented in this encounter [facility] SystemProgress note Author Sally Alex [facility] August 31, 2023 3:45pm Note Date/Time August 31, 2023 10:54 am [facility] [address] [place] [address] Hospitalist Progress Note Signed with Addenda Patient: Esme Steven MR#: [id number] : 1960 Acct:[id number] Age/Sex: 62 / M Adm Date: 4 Loc: Room: [address] [place] [address] Type: ADM IN Attending Dr: Sally Alex MD Copies to: ~ ADDENDUM1 Patient was personally seen by me on the day of encounter, reviewed his history and performed gomez elements of exam and formulated the plan of care and confirmedthe resident/interns note below. Addendum Documented By: Sally Alex MD 08/31/23 0196 Addendum Signed By: <Electronically signed by Sally Alex MD> 08/31/23 1545 Date of Service: 08/31/2023 Subjective Subjective Narrative: Mr. Steven is resting comfortably in bed this morning on his left side. He reports no overnight events. He denies any new onset signs or symptoms. Overall, he notes that he is feeling much better. Generally, he says that he feels like he is back to normal. He denies any fevers, chills, nausea, vomiting, diarrhea, constipation. He denies any hematochezia or melena since his last stool. He is urinating normally. All questions and concerns are addressed at this time. Exam Physical Exam Vital Signs: Temp Pulse Resp BP Pulse Ox O2 Del Method 98.9 F 77 20 130/76 95 Room Air 08/31/23 08:50 08/31/23 08:50 08/31/23 08:50 08/31/23 08:50 08/31/23 08:50 08/31/23 08:50 Narrative: General: A&Ox4, no acute distress HEENT: head atraumatic, normocephalic, moist mucous membranes Neck: supple no masses, no lymphadenopathy CVS: regular rate and rhythm, no murmurs or gallops Respiratory: clear to auscultation bilaterally, no wheezing or crackles, symmetric expansion GI: soft, nondistended, nontender, positive bowel sounds with no organomegaly Extremity: moves all extremities, no restrictions of movements, no calf tenderness, no edema Neuro: Moves all extremities in all planes of motion. Skin: dry, intact no rashes or lesions Psych: Cooperative, congruent mood, bright affect Objective Lab Results 08/31/23 06:44 08/31/23 06:44 Microbiology Results Microbiology 08/30/23 18:49 Nasopharyngeal Respiratory Panel (PCR) - Final 08/30/23 18:49 Nasopharyngeal SARS-CoV-2, Influenza & RSV (PCR) - Final Meds Allergies and Active Meds Allergies prednisone Allergy (Unknown, Verified 08/30/23 16:28) Agitated, HEADACHES Active Meds: Active Medications Generic Name Dose Route Start Last Admin Trade Name Freq PRN Reason Stop Dose Admin Acetaminophen 650 mg 08/30/23 22:53 Acetaminophen 325 Mg Tablet PO 08/29/24 22:52 Q6HR PRN Pain Scale 1 - 3 or fever Allopurinol 100 mg 08/31/23 09:00 08/31/23 08:59 Allopurinol 100 Mg Tablet PO 08/30/24 08:59 100 mg QAM EAGLE Administration Alprazolam 0.5 mg 08/30/23 22:55 08/30/23 23:33 Alprazolam 0.5 Mg Tablet PO 02/26/24 22:54 0.5 mg QHS EAGLE Administration Apixaban 5 mg 08/30/23 22:55 08/31/23 08:59 Apixaban 5 Mg Tablet PO 08/29/24 22:54 5 mg BID EAGLE Administration Aspirin 81 mg 08/31/23 09:00 08/31/23 08:59 Aspirin 81 Mg Tablet.Dr PO 08/30/24 08:59 81 mg DAILY EAGLE Administration Atorvastatin Calcium 80 mg 08/31/23 22:00 Atorvastatin 80 Mg Tablet PO 08/30/24 21:59 QHS EAGLE Colchicine 0.6 mg 08/31/23 09:00 08/31/23 08:59 Colchicine 0.6 Mg Tablet PO 08/30/24 08:59 0.6 mg Q48HR EAGLE Administration Escitalopram Oxalate 20 mg 08/31/23 09:00 08/31/23 08:59 Escitalopram 20 Mg Tablet PO 08/30/24 08:59 20 mg DAILY EAGLE Administration Sodium Chloride 1,000 mls @ 0 mls/hr 08/30/23 20:45 08/30/23 20:51 0.9% Sodium Chloride 1,000 Ml IV 08/29/24 20:44 20 mls/hr .Q0M EAGLE Administration KVO Piperacillin Sod/Tazobactam Sod 4.5 gm in 100 mls @ 25 mls/hr 08/30/23 23:45 08/31/23 02:37 Zosyn IV 25 mls/hr Q8H EAGLE Administration Magnesium Sulfate 2 gm in 50 mls @ 25 mls/hr 08/30/23 22:53 Magnesium Sulf 2gm-*Swfi* IV 08/29/24 22:52 DAILY PRN Magnesium Level < 1.7 Levothyroxine Sodium 150 mcg 08/31/23 06:30 08/31/23 06:13 Levothyroxine 150 Mcg Tablet PO 08/30/24 06:29 150 mcg DAILY@0630 EAGLE Administration Methylprednisolone 4 mg 09/01/23 09:00 Methylprednisolone 4 Mg Tablet PO 08/31/24 08:59 Q48HR EAGLE Metoprolol Succinate 50 mg 08/31/23 09:00 08/31/23 08:59 Metoprolol Succinate 50 Mg Tab.Er.24h PO 08/30/24 08:59 50 mg QAM EAGLE Administration Ondansetron HCl 4 mg 08/30/23 22:53 Ondansetron 4 Mg/2 Ml Vial IV-PUSH 08/29/24 22:52 Q6H PRN Nausea And Vomiting Potassium Chloride 40 meq 08/30/23 22:53 Potassium Chloride Er 20 Meq Tab.Er.Prt PO 08/29/24 22:52 DAILY PRN Hypokalemia Sodium Chloride 0 ml 08/30/23 16:28 08/30/23 19:46 Sodium Chloride 0.9 % 10 Ml Syringe IV-PUSH 08/29/24 16:27 10 ml PRN PRN Administration Flush Sodium Chloride 0 ml 08/31/23 06:00 08/31/23 06:12 Sodium Chloride 0.9 % 10 Ml Syringe IV-PUSH 08/30/24 05:59 Not Given QSHIFT EAGLE A&P - Hospitalist Assessment/Plan (1) Acute diverticulitis: (2) Sepsis: Plan Acute diverticulitis, sepsis -Continue IV Zosyn. -Awaiting culture results. -1 set of blood culture growing gram positive and follow-up final culture result -Continue normal heart healthy p.o. diet as tolerated. Chronic glucocorticoid use -Cortisol level is normal. -Continue Medrol. Other chronic medical conditions -Continue current at home medication regiment. Documented By: Sally Alex MD 08/31/23 1050 Signed By: <Electronically signed by Sally Alex MD> 08/31/23 1545 <Electronically signed by DO RADHA Zavala> 08/31/23 1054 [facility] Work Phone: Reason for referral (narrative)* Reason Referral for suspect ed PMR Known OA spine, hips, knees, hands Diagnosis 1 PMR (polymyalgia rhe umatica) (M35.3) Referral Organization [facility] Inocente Al C neyda Referring Provider First Name Coleman Referring Provider Last Name Inocente Referring Provider Specialty Internal Me dicine Referred Organization [facility] Referred Provider Sarai Georges Referred Address [address] [place],[address] Referral Priority Routine [facility] [employer] Other Reason for referral (narrative)* Diagnostic Procedure Only (Routine) - Authorized Specialty Diagnoses / Procedures Referred By Contac t Referred To Contact XR IMAGING Diagnoses Steroid-induced osteoporosis Procedures DXA-FOREARM SKELETON DXA BONE DENSITY STUDY 1/>SITES Heladio Alvarado MD [address] [facility] [place] [address] [place] [address] Referral ID Status Reason Start Date Expiration Date Visits Requested Visits Authorized [id number] Authorized Auto-Generat ed Referral 01/05/2023 02/04/2024 1 1 [facility] for referral (narrative)* Diagnostic Procedure Only (Routine) - Closed Specialty Diagnoses / Procedures Referred By Contac t Referred To Contact XR IMAGING Diagnoses Steroid-induced osteoporosis Procedures DXA-FOREARM SKELETON DXA BONE DENSITY STUDY 1/>SITES Heladio Alvarado MD [address] [facility] [place] [address] [place] [address] Referral ID Status Reason Start Date Expiration Date V isits Requested Visits Authorized [id number] Closed Auto-Generate d Referral 01/05/2023 02/04/2024 1 1 [facility] for visit Narrative* Diagnostic Procedure Only (Routine) - Closed Specialty Diagnoses / Procedures Referred By Contac t Referred To Contact XR IMAGING Diagnoses Steroid-induced osteoporosis Procedures DXA-FOREARM SKELETON DXA BONE DENSITY STUDY 1/>SITES Heladio Alvarado MD [address] [facility] [place] [address] [place] [address] Referral ID Status Reason Start Date Expiration Date V isits Requested Visits Authorized [id number] Closed Auto-Generate d Referral 01/05/2023 02/04/2024 1 1 [facility] Chief Complaint and Reason for Visit Chief Complaint Z96.642 m47.22 Chief Complaint m47.22 Chief Complaint M79.641 M25.551 Chief Complaint M25.551 lt arm pain due to fall Chief Complaint M25.551 lt arm pain due to fall M24.812 Chief Complaint lt arm pain due to f all M24.812 Chief Complaint Z96.642 M25.511 Chief Complaint Z96.642 M25.511 heacache, confusion Chief Complaint Z96.642 M25.511 M79.1 R76.0 heacache, confusion Chief Complaint M79.1 R76.0 heacache, confusion M25.551 osteoarthritis 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 Chief Complaint osteoarthritis of ri ght hip Hip pain Chief Complaint Hip pain Hip pain Chief Complaint Op/Customer Agent Left Shoulder Pain Mri Done At [facility] z47.1 z96.641 Flu Shot/ Bp Check Discussion About [facility] Magistrate Recheck Left Shoulder Cannot Have Surger Chief Complaint Op/Customer Agent Left Shoulder Pain Mri Done At [facility] z47.1 z96.641 Flu Shot/ Bp Check Discussion About [facility] Magistrate Recheck Left Shoulder Cannot Have Surger Z47.1/Z96.641 T84.84XA Z96.652 M79.662 Chief Complaint Flu Shot/ Bp Check Discussion About [facility] Magistrate Recheck Left Shoulder Cannot Have Surger Z47.1/Z96.641 M25.562 T84.84XA Z96.652 M79.662 Amb Documentation 3 week recheck 2 WEEK RECHECK Check Up Reason for Visit Aftercare following hip joint replacement surgery History of total replacement 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 Aftercare following hip joint replacement surgery History of total replacement 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 ASHD (arteriosclerotic heart disease) GENESIS (generalized anxiety disorder) Hyperlipidemia Hypertension Hypothyroidism Chief Complaint Recheck Left Shoulde r Cannot Have Surger Z47.1/Z96.641 M25.562 T84.84XA Z96.652 M79.662 Amb Documentation 3 week recheck 2 WEEK RECHECK Check Up afib Reason for Visit Aftercare following hip joint replacement surgery History of total replacement 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 Aftercare following hip joint replacement surgery History of total replacement 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 ASHD (arteriosclerotic heart disease) Atrial fibrillation GENESIS (generalized anxiety disorder) Hypertension Chief Complaint Amb Documentation 3 week recheck 2 WEEK RECHECK Check Up afib chest pains SOB chills Reason for Visit Aftercare following hip joint replacement surgery History of total replacement 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 Aftercare following hip joint replacement surgery History of total replacement 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 ASHD (arteriosclerotic heart disease) Atrial fibrillation GENESIS (generalized anxiety disorder) Hypertension Diverticulitis Elevated lactic acid level Migraine SIRS (systemic inflammatory response syndrome) Chief Complaint Amb Documentation 3 week recheck 2 WEEK RECHECK Check Up afib chest pains SOB chills Reason for Visit Aftercare following hip joint replacement surgery History of total replacement 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 Aftercare following hip joint replacement surgery History of total replacement 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 ASHD (arteriosclerotic heart disease) Atrial fibrillation GENESIS (generalized anxiety disorder) Hypertension Acute diverticulitis Diverticulitis Elevated lactic acid level Migraine Sepsis SIRS (systemic inflammatory response syndrome) Chief Complaint 2 WEEK RECHECK Check Up afib chest pains SOB chills Amb Documentation hospital follow up Reason for Visit Aftercare following hip joint replacement surgery History of total replacement 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 ASHD (arteriosclerotic heart disease) GENESIS (generalized anxiety disorder) Acute diverticulitis Acute diverticulitis ASHD (arteriosclerotic heart disease) Inflammatory polyarthritis Persistent atrial fibrillation Primary hypertension Chief Complaint afib chest pains SOB chills Amb Documentation hospital follow up OP SP BILAT SHOULDER PAIN Reason for Visit Acute diverticulitis Elevated lactic acid level Acute diverticulitis ASHD (arteriosclerotic heart disease) Inflammatory polyarthritis Persistent atrial fibrillation Primary hypertension Biceps tendonitis on right Rotator cuff syndrome of right shoulder Traumatic complete tear of left rotator cuff Chief Complaint chest pains SOB chil ls Amb Documentation hospital follow up OP SP BILAT SHOULDER PAIN wellness Reason for Visit Elevated lactic acid level ASHD (arteriosclerotic heart disease) Inflammatory polyarthritis Primary hypertension Biceps tendonitis on right Rotator cuff syndrome of right shoulder Traumatic complete tear of left rotator cuff ASHD (arteriosclerotic heart disease) Atrial fibrillation GENESIS (generalized anxiety disorder) Gastroesophageal reflux disease with esophagitis without hemorrhage Hypercholesterolemia FER (obstructive sleep apnea) Primary hypertension Screening PSA (prostate specific antigen) H/O diverticulitis of colon Wellness examination Family History Relationship Condition Age at Onset Recorded Date/T daren Not Specified Cerebrovascular accident (CVA) Unknown Calculus of kidney Unknown Presence of cardiac pacemaker Unknown father Coronary artery disease Unknown brother Cerebral aneurysm Unknown brother Malignant neoplasm Unknown Relationship Condition Age at Onset Recorded Date/T daren Not Specified Calculus of kidney Unknown Presence of cardiac pacemaker Unknown Cerebrovascular accident (CVA) Unknown father Coronary artery disease Unknown brother Cerebral aneurysm Unknown brother Exposure to Agent [place] Unknown Relationship Condition Age at Onset Recorded Date/T daren Not Specified Calculus of kidney Unknown Presence of cardiac pacemaker Unknown Cerebrovascular accident (CVA) Unknown father Coronary artery disease Unknown brother Cerebral aneurysm Unknown brother Exposure to Agent [place] Unknown brother Unknown father Unknown Not Specified Unknown History of stroke Unknown Heart disease Unknown Relationship Condition Age at Onset Recorded Date/T daren Not Specified Calculus of kidney Unknown Presence of cardiac pacemaker Unknown Cerebrovascular accident (CVA) Unknown History of stroke Unknown Unknown Heart disease Unknown father Coronary artery disease Unknown brother Cerebral aneurysm Unknown Exposure to Agent [place] Unknown Relationship Condition Age at Onset Recorded Date/T daren mother Calculus of kidney Unknown Presence of cardiac pacemaker Unknown Cerebrovascular accident (CVA) Unknown History of stroke Unknown Unknown Heart disease Unknown father Coronary artery disease Unknown brother Cerebral aneurysm Unknown Exposure to Agent [place] Unknown Advance Directives Advance Directive Response Recorded Date/ Time Advance Directives No January 25, 2017 2:08pm Advance Directive Response Recorded Date/ Time Advance Directives No January 25, 2017 1:08pm Reason for Referral Specialty Diagnoses / Procedures Referred By Mario bartholomew Referred To Contact Diagnoses 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 (Multi) Procedures ECG 12 Lead Antonio Mora MD [address] [place] [address] 2, [place] [id number] Referral ID Status Reason Start Date Expiration Date V isits Requested Visits Authorized [id number] Authorized 07/27/2023 07/26/2024 1 1 Specialty Diagnoses / Procedures Referred By Mario bartholomew Referred To Contact Cardiology Diagnoses 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 (Multi) 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 Procedures Cardioversion External Antonio Mora MD [address] [facility] [address], [place] [address] [place] [id number] Referral ID Status Reason Start Date Expiration Date V isits Requested Visits Authorized [id number] Pending Review 07/27/2023 07/26/2024 1 1 Referral ID Status Reason Start Date Expiration Date V isits Requested Visits Authorized [id number] Authorized 07/27/2023 07/26/2024 1 1 Specialty Diagnoses / Procedures Referred By Mario bartholomew Referred To Contact Cardiology Diagnoses 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 (Multi) Procedures Follow Up In Cardiology Antonio Mora MD [address] [facility] [address] [place] [address] Antonio Mora MD [address] [facility] [address] [place] [address] Referral ID Status Reason Start Date Expiration Date V isits Requested Visits Authorized [id number] Authorized 07/27/2023 07/26/2024 1 1 Reason *FU 11/29 please r frankie to dr pineda for rheumatology. labs with Dr Brower. Saw [facility], wants second opinion Diagnosis 1 Multiple joint pain (M25.50) Referral Organization [facility] [place] [facility] Referring Provider First Name Melinda Referring Provider Last Name Luba Referring Provider Specialty Nurse Pract itioner Referred Organization [facility] Referred Provider Heladio Pineda Referred Address [address] [place], [place],[address] Referred Provider Specialty Internal Med icine Referral Priority Routine General Notes Melinda Perla 10:25:43 AM >received today, completed referral form and faxed that to [facility] to get referral process started. Patient will be contacted directly by CC to schedule appt. Once patient is scheduled and the ov note is locked I will fax records. Reason 05/26/22 Nonhealin g tongue ulceration, odynophagia secondary to 1 hoarseness Diagnosis 1 Tongue ulceration (K 14.0) Referral Organization [facility] Marvin faye Referring Provider First Name Coleman Referring Provider Last Name Inocente Referring Provider Specialty Internal Me dicine Referred Organization [facility] Referred Provider Radha Blackburn Referred Address ,[place], [place],[address] Referred Provider Specialty Ear, Nose an d Throat Referral Priority Routine Referral Appointment Date 2022-05-26 General Notes Fany Terrell 09:55:13 AM >received today Fany Terrell 05/24/2022 09:56:28 AM >notes locked, insurance card attached, referral sent P2P Fany Terrell 05/31/2022 08:44:23 AM >faxed first attempt letter Fany Terrell 05/31/2022 11:30:49 AM >received notes and sent to Dr. Brower for review. Closing referral at this time. Summary Purpose Additional Source Comments Source Comments (unrecognize d section and content) In the event this informatio n is protected by the Federal Confidentiality of Alcohol and Drug Abuse Patient Records regulations: The Federal rules restrict any use of the information to criminally investigate or prosecute any alcohol or drug abuse patient.[facility] the event this information is protected by the Federal Confidentiality of Alcohol and Drug Abuse Patient Records regulations: The Federal rules restrict any use of the information to criminally investigate or prosecute any alcohol or drug abuse patient.[facility] the event this information is protected by the Federal Confidentiality of Alcohol and Drug Abuse Patient Records regulations: The Federal rules restrict any use of the information to criminally investigate or prosecute any alcohol or drug abuse patient.[facility] the event this information is protected by the Federal Confidentiality of Alcohol and Drug Abuse Patient Records regulations: The Federal rules restrict any use of the information to criminally investigate or prosecute any alcohol or drug abuse patient.[facility] the event this information is protected by the Federal Confidentiality of Alcohol and Drug Abuse Patient Records regulations: The Federal rules restrict any use of the information to criminally investigate or prosecute any alcohol or drug abuse patient.[facility] the event this information is protected by the Federal Confidentiality of Alcohol and Drug Abuse Patient Records regulations: The Federal rules restrict any use of the information to criminally investigate or prosecute any alcohol or drug abuse patient.[facility] the event this information is protected by the Federal Confidentiality of Alcohol and Drug Abuse Patient Records regulations: The Federal rules restrict any use of the information to criminally investigate or prosecute any alcohol or drug abuse patient.[facility] the event this information is protected by the Federal Confidentiality of Alcohol and Drug Abuse Patient Records regulations: The Federal rules restrict any use of the information to criminally investigate or prosecute any alcohol or drug abuse patient.[facility] the event this information is protected by the Federal Confidentiality of Alcohol and Drug Abuse Patient Records regulations: The Federal rules restrict any use of the information to criminally investigate or prosecute any alcohol or drug abuse patient.[facility] the event this information is protected by the Federal Confidentiality of Alcohol and Drug Abuse Patient Records regulations: The Federal rules restrict any use of the information to criminally investigate or prosecute any alcohol or drug abuse patient.[facility] the event this information is protected by the Federal Confidentiality of Alcohol and Drug Abuse Patient Records regulations: The Federal rules restrict any use of the information to criminally investigate or prosecute any alcohol or drug abuse patient.[facility] REASON FOR VISIT (unrecogniz ed section and content) Reason Comments Consult Pain Ongoing generalized pain. Reason Comments Results Reason Comments Refill Request Reason Comments Follow Up Reason Onset Date Comments EP Surgery ( Pt Education) 06/11/2023 Reason Comments Results Orders Reason Comments New Patient Visit [facility], previous [facility] patient Specialty Diagnoses / Procedures Referred By Contac t Referred To Contact Diagnoses 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 (Multi) Procedures ECG 12 Lead Antonio Mora MD [address] [place] [address] Referral ID Status Reason Start Date Expiration Date V isits Requested Visits Authorized [id number] Authorized 07/27/2023 07/26/2024 1 1 Reason Comments EKG visit Specialty Diagnoses / Procedures Referred By Contac t Referred To Contact Diagnoses 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 (Multi) Procedures ECG 12 Lead Antonio Mora MD [address] [place] [address] Referral ID Status Reason Start Date Expiration Date V isits Requested Visits Authorized [id number] Authorized 07/27/2023 07/26/2024 1 1 Care Teams (unrecognized sec tion and content) Team Status: Active Member Role Status Dates Coleman Brower DO Primary Care Provider Active Team Status: Inactive Member Role Status Dates Coleman Brower DO Primary Care Provider Active Start: August 30, 2023 End: September 01, 2023 Erin Suresh MD Emergency Provider Active Start: August 30, 2023 End: September 01, 2023 Elliott Talley MD Admit Provider Active Start: August 30, 2023 End: September 01, 2023 Sally Alex MD Attending Provider Active Sta rt: August 30, 2023 End: September 01, 2023 Team Status: Active Member Role Status Dates Coleman Brower DO Primary Care Provider Active Start: September 05, 2023 Heladio Pineda Attending Provider Active Start: Harmony nelson 2023 Team Status: Active Member Role Status Dates Coleman Brower DO Primary Care Provider Active Start: September 07, 2023 CHITRA Moya Attending Provider Active St art: September 07, 2023 Team Status: Inactive Member Role Status Dates Coleman Brower DO Primary Care Provide r, Attending Provider Active Start: September 07, 2023 End: September 07, 2023 Team Status: Inactive Member Role Status Dates Coleman Brower DO Primary Care Provider Active Start: October 02, 2023 End: October 02, 2023 Sukhjinder Montesinos , DO Attending Provider Active St art: October 02, 2023 End: October 02, 2023 Team Status: Inactive Member Role Status Dates Coleman Brower DO Primary Care Provide r, Attending Provider Active Start: November 19, 2023 End: November 19, 2023 Team Status: Active Member Role Status Dates Coleman Brower DO Primary Care Provider Active Team Status: Active Member Role Status Dates Coleman Brower DO Primary Care Provide r, Attending Provider Active Start: July 05, 2023 Team Status: Inactive Member Role Status Nader Brower DO Primary Care Provider Active Start: August 02, 2023 End: August 02, 2023 Antonio Mora MD Attending Provid er, Referring Provider Active Start: August 02, 2023 End: August 02, 2023 Team Status: Inactive Member Role Status Nader Brower DO Primary Care Provider Active Start: August 30, 2023 End: September 01, 2023 Erin Suresh MD Emergency Provider Active Start: August 30, 2023 End: September 01, 2023 Elliott Talley MD Admit Provider Active Start: August 30, 2023 End: September 01, 2023 Sally Alex MD Attending Provider Active Sta rt: August 30, 2023 End: September 01, 2023 Team Status: Active Member Role Status Dates Coleman Brower DO Primary Care Provider Active Start: September 05, 2023 Heladio Pineda Attending Provider Active Start: [place] 2023 Team Status: Active Member Role Status Dates Coleman Brower DO Primary Care Provider Active Start: September 07, 2023 CHITRA Moya Attending Provider Active St art: September 07, 2023 Team Status: Inactive Member Role Status Nader Brower DO Primary Care Provide r, Attending Provider Active Start: September 07, 2023 End: September 07, 2023 Team Status: Inactive Member Role Status Dates Coleman Brower DO Primary Care Provider Active Start: October 02, 2023 End: October 02, 2023 Sukhjinder Montesinos , DO Attending Provider Active St art: October 02, 2023 End: October 02, 2023 Team Status: Inactive Member Role Status Dates Coleman Brower , DO Primary Care Provider Active Start: June 20, 2023 End: June 20, 2023 Sarai Mendez II, MD Attending Provider Active Start: June 20, 2023 End: June 20, 2023 Team Status: Inactive Member Role Status Dates Coleman Brower , DO Primary Care Provide r, Attending Provider Active Start: June 29, 2023 End: June 29, 2023 Team Status: Active Member Role Status Dates Coleman Borwer , DO Primary Care Provider Active Start: June 04, 2023 Thao Mehdi Attending Provider Active Start: [facility] 2023 Team Status: Inactive Member Role Status Dates Coleman Brower , DO Primary Care Provider Active Start: June 06, 2023 End: June 06, 2023 Sarai Mendez II, MD Attending Provider Active Start: June 06, 2023 End: June 06, 2023 Team Status: Active Member Role Status Dates Coleman Brower , Primary Care Provider Active Start: August 30, 2023 Erin Suresh MD Emergency Provider Active Start: August 30, 2023 Elliott Talley MD Admit Provide r, Attending Provider Active Start: August 30, 2023 Team Status: Inactive Member Role Status Dates Coleman Brower , DO Primary Care Provider Active Sarai Mendez II, MD Attending Provider Active Team Status: Inactive Member Role Status Coleman Brower , DO Primary Care Provider, Attending Pr raul Active Team Status: Inactive Member Role Status Dates Coleman Brower , DO Primary Care Provider Active Chio Nichole MD Attending Provider Active Team Status: Inactive Member Role Status Dates Coleman Brower , DO Primary Care Provider Active Jonathan Samano MD Attending Provider Active Team Status: Inactive Member Role Status Dates Coleman Brower , DO Primary Care Provider Active Cosmo Guzman APRN Emergency Provider Active Team Status: Inactive Member Role Status Dates Coleman Brower , DO Primary Care Provider Active RASHAD Deal Attending Provider Active Team Status: Inactive Member Role Status Dates Coleman Brower , DO Primary Care Provider Active Sarai Georges MD Attending Provider Active Team Status: Inactive Member Role Status Dates Coleman Brower , DO Primary Care Provider Active Damien Holbrook PA-C Emergency Provider Active Information Technology Manager Relationship Specialty Start Date End Date Coleman Brower, [address] [place] [address] PCP - General Internal Medicine 01/05/23 Melinda Verduzco, SOCIAL SCIENCES DEPARTMENT CHAIR [address] [place] [address] Referring Orthopedics 11/24/22 Information Technology Manager Relationship Specialty Start Date End Date Coleman Brower DO [address] [place] [address] PCP - General Internal Medicine 01/05/23 Melinda Verduzco, SOCIAL SCIENCES DEPARTMENT CHAIR [address] [place] [address] Referring Orthopedics 11/24/22 Information Technology Manager Relationship Specialty Start Date End Date Coleman Brower DO [address] [place] [id number] PCP - General Internal Medicine 01/05/23 Melinda Verduzco, SOCIAL SCIENCES DEPARTMENT CHAIR [address] [place] [address] Referring Orthopedics 11/24/22 Information Technology Manager Relationship Specialty [place] [address] [place] [id number] PCP - General Internal Medicine 01/05/23 Melinda Verduzco, SOCIAL SCIENCES DEPARTMENT CHAIR [address] [place] [address] Referring Orthopedics 11/24/22 Information Technology Manager Relationship Specialty Start Date End Date Coleman Brower DO [address] [place] [id number] PCP - General 01/08/18 Team Status: Inactive Member Role Status Dates Provider Conversion Attending Provider Active St art: March 15, 2023 End: March 15, 2023 Team Status: Inactive Member Role Status Dates Coleman Brower DO Primary Care Provider Active Start: March 29, 2023 End: March 29, 2023 Sarai Mendez II, MD Attending Provider Active Start: March 29, 2023 End: March 29, 2023 Team Status: Inactive Member Role Status Dates Coleman Brower DO Attending Provider Active Sta rt: April 05, 2023 End: April 05, 2023 Team Status: Active Member Role Status Dates Provider Conversion Attending Provider Active St art: April 12, 2023 Team Status: Inactive Member Role Status Dates Coleman Brower DO Attending Provider Active Sta rt: May 02, 2023 End: May 02, 2023 Team Status: Inactive Member Role Status Dates Provider Conversion Attending Provider Active St art: May 07, 2023 End: May 07, 2023 Team Status: Inactive Member Role Status Dates Coleman Brower DO Primary Care Provider Active Start: May 16, 2023 End: May 16, 2023 Sarai Mendez II, MD Attending Provider Active Start: May 16, 2023 End: May 16, 2023 Team Status: Inactive Member Role Status Dates Coleman Brower DO Primary Care Provider Active Start: May 21, 2023 End: May 21, 2023 Sarai Mendez II, MD Attending Provider Active Start: May 21, 2023 End: May 21, 2023 Team Status: Inactive Member Role Status Dates Coleman Brower DO Primary Care Provider Active Start: May 21, 2023 End: May 21, 2023 RASHAD Deal Attending Provider Active Start: May 21, 2023 End: May 21, 2023 Information Technology Manager Relationship Specialty Start Date End Date Coleman Brower DO [address] [place] [address] PCP - General 01/08/18 Information Technology Manager Relationship Specialty Start Date End Date Coleman Brower DO [address] [place] [address] PCP - General 01/08/18 Information Technology Manager Relationship Specialty Start Date End Date Coleman Brower, DO [address] [place] [address] PCP - General Internal Medicine 01/05/23 Melinda Verduzco, SOCIAL SCIENCES DEPARTMENT CHAIR [address] [place] [address] Referring Orthopedics 11/24/22 Information Technology Manager Relationship Specialty Start Date End Date Coleman Brower DO [address] [place] [address] PCP - General Internal Medicine 01/05/23 Melinda Verduzco, SOCIAL SCIENCES DEPARTMENT CHAIR [address] [place] [address] Referring Orthopedics 11/24/22 Information Technology Manager Relationship Specialty Start Date End Date Coleman Brower, DO [address] [place] [id number] PCP - General Internal Medicine 01/05/23 Melinda Verduzco, SOCIAL SCIENCES DEPARTMENT CHAIR [address] [place] [address] Referring Orthopedics 11/24/22 Information Technology Manager Relationship Specialty Start Date End Date Coleman Brower DO [address] [place] [address] PCP - General Internal Medicine 07/12/23 Information Technology Manager Relationship Specialty Start Date End Date Coleman Brower DO PCP - General Internal Medicine 07/12/23 Information Technology Manager Relationship Specialty Start Date End Date Coleman Brower DO [address] [place] [address] PCP - General Internal Medicine 01/05/23 Melinda Verduzco, SOCIAL SCIENCES DEPARTMENT CHAIR [address] [place] [address] Referring Orthopedics 11/24/22 Information Technology Manager Relationship Specialty Start Date End Date Coleman Brower DO [address] [facility] [place] [address] PCP - General Internal Medicine 01/05/23 Melinda Verduzco, SOCIAL SCIENCES DEPARTMENT CHAIR [address] [place] [address] Referring Orthopedics 11/24/22 Team Status: Inactive Member Role Status Dates Coleman Brower DO Primary Care Provide r, Attending Provider Active Start: November 19, 2023 End: November 19, 2023 Goals (unrecognized section and content) Goals may be documented in a n alternate section (unrecognized sect ion and content) No Status Records FoundNo Status Records FoundNo Status Records FoundNo Status Records FoundNo Status Records FoundNo Status Records FoundNo Status Records Found INFORMATION SOURCE (unrecogn ized section and content) DATE CREATED AUTHOR 08/05/[address] [facility] DATE CREATED AUTHOR AUTHOR'S ORGANIZ ATION 06/13/2023 [facility] DATE CREATED AUTHOR AUTHOR'S ORGANIZ ATION 06/29/2023 [facility] DATE CREATED AUTHOR AUTHOR'S ORGANIZ ATION 09/10/2023 [facility] DATE CREATED AUTHOR AUTHOR'S ORGANIZ ATION 09/20/2023 [facility] DATE CREATED AUTHOR AUTHOR'S ORGANIZ ATION 09/27/2023 [facility] DATE CREATED AUTHOR AUTHOR'S ORGANIZ ATION 10/29/2023 [facility] FOR RECORDS PERTAINING TO PATIENTS WHO ARE OR HAVE BEEN ENROLLED IN A CHEMICAL DEPENDENCY/SUBSTANCEABUSE PROGRAM, SOME INFORMATION MAY BE OMITTED. This clinical summary was aggregated from multiple sources. Caution should be exercised in using it in the provision of clinical care. This summary normalizes information from multiple sources, and as a consequence, information in this document may materially change the coding, format and clinical context of patient data. In addition, data may be omitted in some cases. CLINICAL DECISIONS SHOULD BE BASED ON THE PRIMARY CLINICAL RECORDS. [facility] [employer] [facility]. provides no warranty or guarantee of the accuracy or completeness of information in this document.
[2023-11-21 09:23] LABS: Basophils Absolute Auto 0.1 10^3/uL (0.0-0.1); Basophils Percent Auto 0.7 % (0.2-2.0); Eosinophils Absolute Auto 0.1 10^3/uL (0.0-0.7); Eosinophils Percent Auto 1.1 % (0.9-7.0); Hematocrit 43.6 % (42.0-54.0); Hemoglobin 15.2 g/dL (14.0-18.0); Immature Granulocytes Abs Auto 0.15 10^3/uL (0.00-0.03); Immature Granulocytes Pct Auto 1.3 % (0.0-0.5); Lymphocytes Absolute Auto 2.8 10^3/uL (1.2-3.8); Lymphocytes Percent Auto 24.3 % (20.5-60.0); Mean Corpuscular HGB Conc 34.9 g/dL (29.9-35.2); Mean Corpuscular Hemoglobin 36.5 pg (25.9-34.0); Mean Corpuscular Volume 104.6 fL (80.0-94.0); Mean Platelet Volume 10.6 fL (9.5-13.5); Monocytes Percent Auto 8.5 % (1.7-12.0); Neutrophils Absolute Auto 7.3 10^3/uL (1.4-6.5); Neutrophils Percent Auto 64.1 % (43.0-75.0); Platelet Count 180 10^3/uL (150-450); Red Blood Count 4.17 10^6/uL (4.70-6.10); Red Cell Distribution Width 13.2 % (11.0-15.0); White Blood Count 11.4 10^3/uL (4.0-11.0)
[2023-11-21 10:38] LABS: Anion Gap 9.7; Carbon Dioxide 29.6 mmol/L (21.0-32.0); Chloride 103 mmol/L (98-107); Glucose 113 mg/dL (74-106); Potassium 4.3 mmol/L (3.5-5.1); Sodium 138 mmol/L (136-145)
[2023-11-21 10:39] LABS: Alanine Aminotransferase 48 U/L (16-63); Albumin Globulin Ratio 1.1; Albumin Level 3.4 g/dL (3.4-5.0); Alkaline Phosphatase 53 U/L (46-116); Aspartate Amino Transferase 19 U/L (15-37); BUN Creatinine Ratio 21.8; Bilirubin Total 0.7 mg/dL (0.2-1.0); Calcium 8.6 mg/dL (8.5-10.1); Estimated GFR (African America >60 (>=60); Estimated GFR (Non-African Ame >60 (>=60); Globulin 3.2 g/dL; Total Protein 6.6 g/dL (6.4-8.2)
[2023-11-21 10:40] LABS: Chol HDL Ratio 2.7; Cholesterol 141 mg/dL (<=200); HDL Cholesterol 53 mg/dL (40-60); Thyroid Stimulating Hormone 1.694 uIU/mL (0.358-3.740); Triglycerides 75 mg/dL (<=150)
[2023-11-21 11:21] LABS: Prostate Specific Antigen Scrn 0.48 ng/mL (<=4.00)
== END 2023-11-21 08:26 | disposition home or self-care (01) ==
LOC: LAB 08:29
PROVIDERS: PCP Internal Medicine; Visit Provider Internal Medicine
DX: Z00.00 Encounter for general adult medical examination without abnormal findings (principal); I25.10 Atherosclerotic heart disease of native coronary artery without angina pectoris; E78.00 Pure hypercholesterolemia, unspecified; I10 Essential (primary) hypertension; I48.91 Unspecified atrial fibrillation; Z12.5 Encounter for screening for malignant neoplasm of prostate; R53.83 Other fatigue; E03.9 Hypothyroidism, unspecified
CPT/HCPCS: 36415; 80053; 80061; 84443; 85025; G0103

== ENCOUNTER 2023-11-23 07:36 | Outpatient (OUT) | payer MEDICARE, SELFPAY ==
--- OUTSIDE RECORDS SUMMARY | 2023-11-23 07:40 | XMS_ITS | CCD ---
Author Organization [facility] CliniSyia Care Team Providers Care Life Claims Examiner Name Role Phone Pcp, No Primary Care Provider UnavailColeman Santoyo DO Primary Care Provider Sarai Mendez II Unavailable Jonathan Samano Unavailable Melinda Verduzco Unavailable DO Coleman Brower Primary Care Provider MD Sarai Mendez II Attending Provider DO Coleman Brower Attending Provider [phone] DO Coleman Brower Primary Care Provider DO Coleman Brower Attending Provider [phone] MD Chio Nichole Attending Provider [phone] Chio Nichole Unavailable DO Coleman Brower Primary Care Provider MD Jonathan Samano Attending Provider DO Coleman Brower Primary Care Provider STEPHEN Guzman Emergency Provider Coleman Brower Unavailable DO Coleman Brower Primary Care Provider MD Jonathan Samano Attending Provider STEPHEN Guzman Emergency Provider RASHAD Verduzco Attending Provider [phone] COLEMAN BROWER Attending [...] II Attending Provider RASHAD Verduzco Attending Provider [phone] CHHAYA WHATLEY Referring Unavailable BALL, COLEMAN E Primary Care Unavailable BALL, COLEMAN E Primary Care Unavailable DAVID DWYER Attending Unavailable THERESA PRAKASH Attending Unavailabl THERESA Melgar Referring Unavailabl e BALL, COLEMNA E Primary Care Unavailable SARAI VELASCO Attending [...] Provider MD Elliott Talley Attending Provider [phone] MD Sally Alex Attending Provider Ball DO, [...] Care Unavailable MIRIAM, HELADIO Referring Unavailable SANTOS CABRERA Attending Unavailable Andrea MULLINS, Sarai Antunez Attending Unavailabl e Andrea II, Sarai Antunez Admitting Unavailabl e Ball, Coleman Primary Care Unavailable Damien Holbrook Admitting Unavailable Damien Holbrook Attending Unavailable Ball, Coleman Primary Care Unavailable Andrae II, Sarai Antunez Attending Unavailabl e Dunklin II, Sarai Antunez Admitting Unavailabl e Ball, Coleman Primary Care Unavailable Andrea HARPREET, Sarai Antunez Attending Unavailabl e Andrea II, Sarai Antunez Admitting Unavailabl e Ball, Coleman Primary Care Unavailable Melinda Verduzco Admitting Unavailable Melinda Verduzco Attending Unavailable Ball, Coleman Primary Care Unavailable Ball, Coleman Primary Care Unavailable Sarai Georges Admitting Unavailable Sarai Georges Attending Unavailable Andrea II, Sarai Antunez Attending Unavailabl e Dunklin II, Sarai Antunez Admitting Unavailabl e Ball, Coleman Primary Care Unavailable AndreaSarai velasquez II M Attending Unavailabl e Andrea II, Sarai Antunez Admitting Unavailabl e Ball, Coleman Primary Care Unavailable Traboulssi, Mourhaf Admitting Unavailable Traboulssi, Mojoellef Attending Unavailable Traboulssi, Mourhaf Referring Unavailable Ball, Coleman Primary Care Unavailable Andrea MULLINS, Sarai Antunez Attending Unavailabl e Dunklin II, Sarai Antunez Admitting Unavailabl e Ball, Coleman Primary Care Unavailable Sally Alex Attending Unavailable DoamekpElliott alvarez Admitting Unavailab le Ball, Coleman Primary Care Unavailable Andrea II, Sarai Antunez Attending Unavailabl e [place]unklin II, Sarai Antunez Admitting Unavailabl e Ball, Coleman Primary Care Unavailable TRABOULSSI, MOJOELLEF Attending Unavailable BALL, COLEMAN E Primary Care Unavailable TRABOULSSI, MOURHAF Referring Unavailable BALL, COLEMAN E Primary Care Unavailable TRABOULSSI, MOURHAF Attending Unavailable TRABOULSSI, MOURHAF Referring Unavailable BALL, COLEMAN E Primary Care Unavailable Inocente, DO Coleman Primary Care Provider Allergies Allergy Classification Reported Allergen(s) Allergy Type Date of Onset Reaction(s) Facility (20 sources) Acetaminophen / oxyCODONE Drug Allergy Unknown [facility] Other (20 sources) atorvastatin Drug Allergy 05-07-19 24 Unknown, Unknown Reaction [facility] (20 sources) predniSONE; 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: [prednisone] Drug Allergy 01-27-20 23 Other, Headache [facility] (20 sources) Simvastatin Drug Allergy 01-02-20 13 Unknown [facility] Other (1 source) patient allergy list reviewed by nurse or physicia Propensity to adverse reactions 02-18-20 13 Comment:Done [facility] Other (4 sources) Acetaminophen; 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: [acetaminophen] Drug Allergy 05-07-19 Unknown Reaction [facility] (4 sources) oxyCODONE; 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: [oxycodone] Drug Allergy 05-07-19 Unknown Reaction [facility] (1 source) atorvastatin Drug Allergy 05-07-19 [facility] Repository Medications Current Medications Medication Drug Class(es) [...] Start: 06-17-2021 take 1 capsule by mo [facility] every twelve hours Cefadroxil 500 MG 1 [...] diarrhea. docusate sodium 50 mg / sennosides, mcc 8.6 mg oral tablet (10 sources) Start: [...] Active Start: 03-07-2023 [facility] Doxycycline Hyclate 100 [...] every week as needed Ergocalciferol 1.25 MG (08600 UT) 1 capsule Orally Once a Week for 60 days Nov, Not-Taking/PRN Start: 03-25-2021 take 1 capsule by mo uth every week Vitamin D (Ergocalciferol) 1.25 MG (63536 UT) 1 capsule Orally once weekly for [...] C-reactive protein (CRP) , PMR (polymyalgia rheumatica) ([facility]) Day 1=6tabs with food, Day 2=5tabs, Day 3=4tabs, Day 4=3tabs, Day 5=2tabs, Day 6=1tab, No NSAIDs on med 21 tablet 1 09/05/2023 Active Start: 07-05-2023 End: 09-05-2023 take 1 tablet by mouth every other day Methylprednisolone (Medrol) 4 mg tablet Active 4 MG PO Q2D August 01, 2023 12:00am Start: 06-28-2023 methylPREDNISo lone (MEDROL) 4 mg Indications: PMR (polymyalgia rheumatica) ([facility]) , Elevated sed rate , Elevated C-reactive [...] Tartr ate 25 MG (Prior Auth: Rx Ref#:[id number]) Oral for 90 Active Comment on above: [...] 5 days Apr, Active polyethylene glycol 3350 05732 mg powder for oral solution (10 sources) [...] May 22, 2022 January 26, 2023 11:02am [id number] 200 actuat albuterol 0.09 mg/actuat metered dose [...] Start: 06-17-2021 take 1 capsule by mo [facility] every twelve hours Celecoxib 200 MG 1 capsule with food Orally Twice a day for 30 day(s) MED TO BED UPON DISCHARGE. DOS: 07/04/2021 Jun, Active Comment on above: Take 1 capsule by mo [facility] every afternoon. 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; 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: [OTH HALF-WAY CURRENT DRUG THERAPY] Onset: 08-03-2022 Episodic Other aftercare (12 sources) Long-term current use of systemic steroid; 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: [termite technician (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) use of 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] Onset: 01-05-2023 01-05-2023 Episodic Other aftercare (2 sources) termite technician (current) use of 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; 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: [detention (current) use of 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] Onset: 07-27-2023 Episodic [...] Test Name Value Interpretation Reference Range Facility [facility] 09-09-2023 [facility] Telephone (RADHA) ----- ESME STEVEN ([id number]) 1960 M Date Time Provider Department 09/09/23 [...] Diagnosis:Hyperuricemia [E79.0] Order(s):URIC ACID [SQURIC] Order #: [id number] FUTURE Prescriptions as of 09/10/2023 - methylPREDNISolone [...] Idiopathic chronic gout of multiple sites 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 [Z79*01/05/2023 CHENCHO positive [R76.8] 01/05/2023 Bilateral hand swelling [M79.89] 01/05/2023 Chronic pain of both knees [M25.561, M25.562, G*03/05/2023 Encounter Status:Closed by PRECIOUS HARTMAN on 09/10/23 Normal [facility] CRP SerPl-mCncon 09-05-2023 CRP [Mass/Vol] 0.8 mg/dL Normal <0.9 [facility] Comment on above: Order Comment: Speci men Type: BLOOD SPECIMENOrdering Facility: [facility] Address: [address] [place] [address] Performed By: #### 1 988-5 ####[facility] [id number] [place] [address] [place] ESR Westergren method (Bld) [Velocity]on 09-05-2023 ESR (Bld) [Velocity] 2 mm/h Normal 0-15 [facility] Comment on above: Order Comment: Speci men Type: BLOOD SPECIMENOrdering Facility: [facility] Address: [address] [place] [address] Performed By: #### 4 [id number] ####[facility] [id number] [place] [address] [place] Laboratory - Hematology and Cell countson 09-05-2023 ESR (Bld) [Velocity] 2 mm/h 0-15 [facility] No Panel Informationon 09-04 C-Reactive Protein, Quantitative 0.8 mg/dL <0.9 [facility] Automated basophil %Ordered By: Elliott Talley on 09-01-2023 Basophils/100 WBC (Bld) 0.5 % . [facility] Comment on above: Performed By: #### C BC #### [address] Automated basophil countOrde red By: Elliott Mayank on 09-01-2023 Basophils (Bld) [#/Vol] 0.0 10*3/uL 0.0-0.2 [facility] Comment on above: Result Comment: PERF ORMED BY: [place] [address] PATHOLOGIST STRAP MACHINE OPERATOR AUTOMATIC ALAYNA CAPONE M.D. Performed By: #### C BC #### [address] Automated blood monocyte cou ntOrdered By: Elliott Talley on 09-01-2023 Monocytes (Bld) [#/Vol] 0.5 10*3/uL 0.0-0.8 [facility] Comment on above: Performed By: #### C BC #### [address] Automated eosinophil %Ordere d By: Elliott Talley on 09-01-2023 Eosinophils/100 WBC (Bld) 0.8 % . [facility] Comment on above: Performed By: #### C BC #### [address] Automated eosinophil countOr dered By: Elliottoliver Talley on 09-01-2023 Eosinophils (Bld) [#/Vol] 0.1 10*3/uL 0.0-0.45 [facility] Comment on above: Performed By: #### C BC #### [address] Automated monocyte %Ordered By: Elliottana maria Gutierrezor on 09-01-2023 Monocytes/100 WBC (Bld) 6.4 % . [facility] Comment on above: Performed By: #### C BC #### [address] Automated neutrophil %Ordere d By: Elliott Gutierrezor on 09-01-2023 Neutrophils/100 WBC (Bld) 78.8 % . [facility] Comment on above: Performed By: #### C BC #### [address] Complete Blood Count Auto Di ffon 09-01-2023 Mean Corpuscular HGB Conc 33.7 g/dL Normal 32.5-35.6 [facility] Comment on above: Performed By: #### C BC #### [address] NRBC% 0.0 /100{WBC} Normal 0-0.5 [facility] Comment on above: Performed By: #### C BC #### [address] Erythrocyte distribution wid th [Ratio] by Automated countOrdered By: Elliott Talley on 09-01-2023 Erythrocyte distribution width (RBC) [Ratio] 15.2 % High 12.0-14.8 [facility] Comment on above: Performed By: #### C BC #### [address] Erythrocytes [#/volume] in B lood by Automated countOrdered By: Elliott Talley on 09-01-2023 RBC (Bld) [#/Vol] 4.66 10*6/uL 3.90-5.60 [facility] Comment on above: Performed By: #### C BC #### [address] Hematocrit [Volume Fraction] of Blood by Automated countOrdered By: Elliott Talley on 09-01-2023 Hematocrit (Bld) [Volume fraction] 47.9 % 38.8-50.0 [facility] Comment on above: Performed By: #### C BC #### [address] Hemoglobin [Mass/volume] in BloodOrdered By: Elliott Diannekpor on 09-01-2023 Hemoglobin (Bld) [Mass/Vol] 16.1 g/dL 13.0-17.0 [facility] Comment on above: Performed By: #### C BC #### [address] Leukocytes [#/volume] correc collins for nucleated erythrocytes in Blood by Automated counOrdered By: Elliott Diannekpor on 09-01-2023 WBC corrected for nucl RBC Auto (Bld) [#/Vol] 7.6 10*3/uL 4.1-10.5 [facility] Leukocytes [#/volume] in Blo od by Automated countOrdered By: Elliott Diannekpor on 09-01-2023 WBC (Bld) [#/Vol] 7.6 10*3/uL 4.1-10.5 [facility] Comment on above: Performed By: #### C BC #### [place] [address] [place] Lymphocytes [#/volume] in Bl ood by Automated countOrdered By: Elliott Diannekpor on 09-01-2023 Lymphocytes (Bld) [#/Vol] 1.0 10*3/uL 1.00-4.8 [facility] Comment on above: Performed By: #### C BC #### [place] [address] [place] Lymphocytes/100 leukocytes i n Blood by Automated countOrdered By: Elliott josiekpor on 09-01-2023 Lymphocytes/100 WBC (Bld) 13.5 % . [facility] Comment on above: Performed By: #### C BC #### [place] [address] [place] MCH [Entitic mass] by Automa collins countOrdered By: Elliott Diannekpor on 09-01-2023 MCH (RBC) [Entitic mass] 34.6 pg 27.5-35.2 [facility] Comment on above: Performed By: #### C BC #### [facility] [address] [place] [address] MCHC Auto (RBC) [Mass/Vol]Or dered By: Elliott Gutierrezor on 09-01-2023 MCHC (RBC) [Mass/Vol] 33.7 g/dL 32.5-35.6 [facility] MCV [Entitic volume] by Auto mated countOrdered By: Elliott Talley on 09-01-2023 MCV (RBC) [Entitic vol] 102.8 fL High 83.5-101 [facility] Comment on above: Performed By: #### C BC #### [address] Neutrophils [#/volume] in Bl ood by Automated countOrdered By: Elliott Talley on 09-01-2023 Neutrophils (Bld) [#/Vol] 6.0 10*3/uL 1.8-7.7 [facility] Comment on above: Performed By: #### C BC #### [facility] [address] [place] [address] Nucleated erythrocytes [Pres ence] in Blood by Automated countOrdered By: Elliott Talley on 09-01-2023 Nucleated RBC Auto Ql (Bld) 0.0 /100{WBC} 0-0.5 [facility] Platelet mean volume [Entiti c volume] in Blood by Automated countOrdered By: Elliott Gutierrezor on 09-01-2023 Platelet mean volume (Bld) [Entitic vol] 9.1 fL 6.6-10.1 [facility] Comment on above: Performed By: #### C BC #### [address] Platelets [#/volume] in Bloo d by Automated countOrdered By: Elliott Talley on 09-01-2023 Platelets (Bld) [#/Vol] 119 10*3/uL Low 150-450 [facility] Comment on above: Performed By: #### C BC #### [facility] [address] [place] [address] [place] Activated partial thrombopla stin time (aPTT) in platelet poor plasma by coagulation aOrdered By: Elliott Talley on 08-31-2023 aPTT Coag (PPP) [Time] 27.6 s 25.1-36.5 [facility] Comment on above: A hematocrit value g reater than 55% may lead to inaccurate results in coagulation testing. Patients having hematocrit values >55% require a special collection tube for coagulation studies. Please contact the laboratory at [phone] for redraw instructions. Alanine aminotransferase [En zymatic activity/volume] in Serum or PlasmaOrdered By: Elliott Talley on 08-31-2023 ALT [Catalytic activity/Vol] 33 U/L 7-52 [facility] Comment on above: Performed By: #### A 1C WTH eA, HGB, [id number], ALB #### [facility] [address] [place] [address] [place] Albumin [Mass/volume] in Ser um or Plasma by Bromocresol green (BCG) dye binding methoOrdered By: Elliott Talley on 08-31-2023 Albumin BCG dye [Mass/Vol] 3.5 g/dL 3.5-5.7 [facility] Alkaline phosphatase [Enzyma tic activity/volume] in Serum or PlasmaOrdered By: Elliott Talley on 08-31-2023 ALP [Catalytic activity/Vol] 39 U/L 34-104 [facility] Comment on above: Performed By: #### A 1C WTH eA, HGB, [id number], ALB #### [facility] [address] [place] [address] [place] Aspartate aminotransferase [ Enzymatic activity/volume] in Serum or PlasmaOrdered By: Elliott Talley on 08-31-2023 AST [Catalytic activity/Vol] 19 U/L 13-39 [facility] Comment on above: Performed By: #### A 1C WTH eA, HGB, [id number], ALB #### [facility] [address] [place] [id number] [facility] Bilirubin.total [Mass/volume ] in Serum or PlasmaOrdered By: Elliott Talley on 08-31-2023 Bilirubin [Mass/Vol] 1.3 mg/dL High 0.3-1.0 [facility] Comment on above: Samples from patient [...] By: #### A 1C WTH eA, HGB, [id number], ALB #### [facility] [address] [place] [id number] [place] Calcium [Mass/volume] in Ser um or PlasmaOrdered By: Elliott Talley on 08-31-2023 Calcium [Mass/Vol] 8.6 mg/dL 8.6-10.3 [facility] Comment on above: Performed By: #### A 1C WTH eA, HGB, [id number], ALB #### [facility] [address] [place] [id number] [place] Carbon dioxide, total [Moles /volume] in Serum or PlasmaOrdered By: Elliott Talley on 08-31-2023 CO2 [Moles/Vol] 29.2 mmol/L 21.0-31.0 [facility] Comment on above: Performed By: #### A 1C WTH eA, HGB, [id number], ALB #### [facility] [address] [place] [id number] [place] Chloride [Moles/volume] in S ursula or PlasmaOrdered By: Elliott Diannekpor on 08-31-2023 Chloride [Moles/Vol] 104 mmol/L 98-107 [facility] Comment on above: Performed By: #### A 1C WTH eA, HGB, [id number], ALB #### [address] Complete Blood Count Auto Di ffon 08-31-2023 Basophils (Bld) [#/Vol] 0.1 10*3/uL Normal 0.0-0.2 [facility] Comment on above: Result Comment: PERF ORMED BY: [place] [address] PATHOLOGIST STRAP MACHINE OPERATOR AUTOMATIC ALAYNA CAPONE M.D. Performed By: #### A 1C WTH eA, HGB, [id number], ALB #### [address] Basophils/100 WBC (Bld) 0.5 % Normal . [facility] Comment on above: Performed By: #### A 1C WTH eA, HGB, [id number], ALB #### [address] Eosinophils (Bld) [#/Vol] 0.0 10*3/uL Normal 0.0-0.45 [facility] Comment on above: Performed By: #### A 1C WTH eA, HGB, [id number], ALB #### [address] Eosinophils/100 WBC (Bld) 0.4 % Normal . [facility] Comment on above: Performed By: #### A 1C WTH eA, HGB, [id number], ALB #### [address] Erythrocyte distribution width (RBC) [Ratio] 15.0 % High 12.0-14.8 [facility] Comment on above: Performed By: #### A 1C WTH eA, HGB, [id number], ALB #### [address] Hematocrit (Bld) [Volume fraction] 44.2 % Normal 38.8-50.0 [facility] Comment on above: Performed By: #### A 1C WTH eA, HGB, [id number], ALB #### [address] Hemoglobin (Bld) [Mass/Vol] 14.8 g/dL Normal 13.0-17.0 [facility] Comment on above: Performed By: #### A 1C WTH eA, HGB, [id number], ALB #### [address] Lymphocytes (Bld) [#/Vol] 1.0 10*3/uL Normal 1.00-4.8 [facility] Comment on above: Performed By: #### A 1C WT eA, HGB, [id number], ALB #### [address] Lymphocytes/100 WBC (Bld) 7.9 % Normal . [facility] Comment on above: Performed By: #### A 1C WT eA, HGB, [id number], ALB #### [address] MCH (RBC) [Entitic mass] 34.6 pg Normal 27.5-35.2 [facility] Comment on above: Performed By: #### A 1C WT eA, HGB, [id number], ALB #### [address] MCV (RBC) [Entitic vol] 103.5 fL High 83.5-101 [facility] Comment on above: Performed By: #### A 1C WT eA, HGB, [id number], ALB #### [address] Mean Corpuscular HGB Conc 33.4 g/dL Normal 32.5-35.6 [facility] Comment on above: Performed By: #### A 1C WTH eA, HGB, [id number], ALB #### [address] Monocytes (Bld) [#/Vol] 0.5 10*3/uL Normal 0.0-0.8 [facility] Comment on above: Performed By: #### A 1C WTH eA, HGB, [id number], ALB #### [address] Monocytes/100 WBC (Bld) 4.5 % Normal . [facility] Comment on above: Performed By: #### A 1C WTH eA, HGB, [id number], ALB #### [address] Neutrophils (Bld) [#/Vol] 10.5 10*3/uL High 1.8-7.7 [facility] Comment on above: Performed By: #### A 1C WTH eA, HGB, [id number], ALB #### [address] Neutrophils/100 WBC (Bld) 86.7 % Normal . [facility] Comment on above: Performed By: #### A 1C WTH eA, HGB, [id number], ALB #### [address] NRBC% 0.1 /100{WBC} Normal 0-0.5 [facility] Comment on above: Performed By: #### A 1C WTH eA, HGB, [id number], ALB #### [address] Platelet mean volume (Bld) [Entitic vol] 8.9 fL Normal 6.6-10.1 [facility] Comment on above: Performed By: #### A 1C WTH eA, HGB, [id number], ALB #### [address] Platelets (Bld) [#/Vol] 118 10*3/uL Significant change down 150-450 [facility] Comment on above: Performed By: #### A 1C WTH eA, HGB, [id number], ALB #### [address] RBC (Bld) [#/Vol] 4.28 10*6/uL Normal 3.90-5.60 [facility] Comment on above: Performed By: #### A 1C WTH eA, HGB, [id number], ALB #### [address] WBC (Bld) [#/Vol] 12.1 10*3/uL High 4.1-10.5 [facility] Comment on above: Performed By: #### A 1C WTH eA, HGB, [id number], ALB #### [address] Comprehensive Metabolic Pane jose 08-31-2023 Albumin [Mass/Vol] 3.5 g/dL Normal 3.5-5.7 [facility] Comment on above: Performed By: #### A 1C WTH eA, HGB, [id number], ALB #### [address] Creatinine Clr Calc Pharmacy 90.65 Normal [facility] Comment on above: Performed By: #### A 1C WTH eA, HGB, [id number], ALB #### [address] GFR/1.73 sq M.predicted MDRD (S/P/Bld) [Vol rate/Area] mL/min/{1.73_m2} Normal [facility] Comment on above: Performed By: #### A 1C WTH eA, HGB, [id number], ALB #### [address] Cortisolon 08-31-2023 Cortisol 9.4 ug/dL Normal [facility] Comment on above: Result Comment: Refe rence range: AM 6 - 24 ug/dl PM <10 ug/dl [facility] urology physician assistant and method: Royalty[employer]EL DXI, POLYCLONAL ANTIBODY CORTISOL ASSAY. PERFORMED BY: [place] [address] PATHOLOGIST STRAP MACHINE OPERATOR AUTOMATIC ALAYNA CAPONE M.D. Performed By: #### A 1C WTH eA, HGB, [id number], ALB #### [address] [place] [address] [place] Creatinine [Mass/volume] in Serum or PlasmaOrdered By: Elliott Talley on 08-31-2023 Creatinine [Mass/Vol] 1.05 mg/dL 0.70-1.30 [facility] Comment on above: Performed By: #### A 1C WTH eA, HGB, [id number], ALB #### [facility] [address] [place] [id number] [place] Glucose [Mass/volume] in Ser um or PlasmaOrdered By: Elliott Talley on 08-31-2023 Glucose [Mass/Vol] 101 mg/dL High 70-100 [facility] Comment on above: ADA recommended refe rence rangeRandom Glucose Reference Range is dependent on time and content of last meal. Glucose of more than 200 mg/dL in a nonstressed, ambulatory subject supports the diagnosis of Diabetes Mellitus. Result Comment: [place] om Glucose Reference Range is dependent on time and content of last meal. Glucose of more than 200 mg/dL in a nonstressed, ambulatory subject supports the diagnosis of Diabetes Mellitus. ADA recommended reference range Performed By: #### A 1C WTH eA, HGB, [id number], ALB #### [facility] [address] [place] [id number] [place] INR in Platelet poor plasma by Coagulation assayOrdered By: Elliott Talley on 08-31-2023 INR Coag (PPP) [Relative time] 1.1 {INR} [facility] Comment on above: INR Therapeutic Rang e [...] By: #### A 1C WTH eA, HGB, [id number], ALB #### [address] Magnesium [Mass/volume] in S ursula or PlasmaOrdered By: Elliott Talley on 08-31-2023 Magnesium [Mass/Vol] 2.0 mg/dL 1.9-2.7 [facility] Comment on above: Performed By: #### A 1C WTH eA, HGB, [id number], ALB #### [address] No Panel InformationOrdered By: Elliott Talley on 08-31-2023 Estimated GFR (CKD-EPI) > 60.0 mL/Min [facility] Creatinine Clearance (Chem 90.65 [facility] Partial Thromboplastin Timeo n 08-31-2023 aPTT Coag (Bld) [Time] 27.6 s Normal 25.1-36.5 Th e [facility] Comment on above: Result Comment: A he matocrit value greater than 55% may lead to inaccurate results in coagulation testing. Patients having hematocrit values >55% require a special collection tube for coagulation studies. Please contact the laboratory at [phone] for redraw instructions. PERFORMED BY: [place] [address] PATHOLOGIST STRAP MACHINE OPERATOR AUTOMATIC ALAYNA CAPONE M.D. Performed By: #### A 1C WTH eA, HGB, [id number], ALB #### [address] Potassium [Moles/volume] in Serum or PlasmaOrdered By: Elliott Talley on 08-31-2023 Potassium [Moles/Vol] 4.4 mmol/L 3.5-5.1 [facility] Comment on above: Performed By: #### A 1C WTH eA, HGB, [id number], ALB #### [address] Protein [Mass/volume] in Ser um or PlasmaOrdered By: Elliott Talley on 08-31-2023 Protein [Mass/Vol] 5.6 g/dL Low 6.4-8.9 [facility] Comment on above: Performed By: #### A 1C WTH eA, HGB, [id number], ALB #### [facility] [address] Prothrombin time (PT)Ordered By: Elliott Talley on 08-31-2023 PT Coag (PPP) [Time] 13.1 s High 9.0-12.9 [facility] Comment on above: A hematocrit value g reater than 55% may lead to inaccurate results in coagulation testing. Patients having hematocrit values >55% require a special collection tube for coagulation studies. Please contact the laboratory at [phone] for redraw instructions. Result Comment: A he matocrit value greater than 55% may lead to inaccurate results in coagulation testing. Patients having hematocrit values >55% require a special collection tube for coagulation studies. Please contact the laboratory at [phone] for redraw instructions. Performed By: #### A 1C WTH eA, HGB, [id number], ALB #### [facility] [address] Random cortisol measurementO rdered By: Elliott Talley on 08-31-2023 Cortisol [Mass/Vol] 9.4 ug/dL [facility] Comment on above: [facility] urology physician assistant and method:BERTIN UNICEL DXI, POLYCLONAL ANTIBODY CORTISOL ASSAY.Reference range: AM 6 - 24 ug/dl PM <10 ug/dl Serum globulin measurement b y calculation (mass/volume)Ordered By: Elliott Talley on 08-31-2023 Globulin (S) [Mass/Vol] 2.1 g/dL [facility] Comment on above: Performed By: #### A 1C WTH eA, HGB, [id number], ALB #### [facility] [address] Serum or plasma albumin/glob ulin mass ratioOrdered By: Elliott Talley on 08-31-2023 Albumin/Globulin [Mass ratio] 1.7 {ratio} [facility] Comment on above: Performed By: #### A 1C WTH eA, HGB, [id number], ALB #### [facility] [address] Serum or plasma anion gap de terminationOrdered By: Elliott Talley on 08-31-2023 Anion gap [Moles/Vol] 9.2 mmol/L 6.0-15.0 [facility] Comment on above: Performed By: #### A 1C WTH eA, HGB, [id number], ALB #### [facility] [address] Sodium [Moles/volume] in Ser um or PlasmaOrdered By: Elliott Talley on 08-31-2023 Sodium [Moles/Vol] 138 mmol/L 136-145 [facility] Comment on above: Performed By: #### A 1C WTH eA, HGB, [id number], ALB #### [facility] [address] Urea nitrogen [Mass/volume] in Serum or PlasmaOrdered By: Elliott Talley on 08-31-2023 Urea nitrogen [Mass/Vol] 15 mg/dL 7-25 [facility] Comment on above: Performed By: #### A 1C WTH eA, HGB, [id number], ALB #### [facility] [address] [place] [address] [place] Activated partial thrombopla stin time (aPTT) in platelet poor plasma by coagulation aOrdered By: Hermes Velez on 08-30-2023 aPTT Coag (PPP) [Time] 25.5 s 25.1-36.5 [facility] Comment on above: A hematocrit value g reater than 55% may lead to inaccurate results in coagulation testing. Patients having hematocrit values >55% require a special collection tube for coagulation studies. Please contact the laboratory at [phone] for redraw instructions. Alanine aminotransferase [En zymatic activity/volume] in Serum or PlasmaOrdered By: Hermes Velez on 08-30-2023 ALT [Catalytic activity/Vol] 44 U/L Normal 7-52 [facility] Comment on above: Performed By: #### B ORTHOTIC TECHNICIAN #### [address] Albumin [Mass/volume] in Ser um or Plasma by Bromocresol green (BCG) dye binding methoOrdered By: Hermes Velez on 08-30-2023 Albumin BCG dye [Mass/Vol] 4.2 g/dL 3.5-5.7 [facility] Alkaline phosphatase [Enzyma tic activity/volume] in Serum or PlasmaOrdered By: Hermes Velez on 08-30-2023 ALP [Catalytic activity/Vol] 46 U/L Normal 34-104 [facility] Comment on above: Performed By: #### B ORTHOTIC TECHNICIAN #### [address] Aspartate aminotransferase [ Enzymatic activity/volume] in Serum or PlasmaOrdered By: Hermes Velez on 08-30-2023 AST [Catalytic activity/Vol] 27 U/L Normal 13-39 [facility] Comment on above: Performed By: #### B ORTHOTIC TECHNICIAN #### [address] Automated basophil %Ordered By: Hermes Velez on 08-30-2023 Basophils/100 WBC (Bld) 0.8 % Normal . [facility] Comment on above: Performed By: #### A 1C WTH eA, HGB, [id number], ALB #### [address] Automated basophil countOrde red By: Hermes Velez on 08-30-2023 Basophils (Bld) [#/Vol] 0.1 10*3/uL Normal 0.0-0.2 [facility] Comment on above: Result Comment: PERF ORMED BY: [place] [address] PATHOLOGIST STRAP MACHINE OPERATOR AUTOMATIC ALAYNA CAPONE M.D. Performed By: #### A 1C WTH eA, HGB, [id number], ALB #### [address] Automated blood monocyte cou ntOrdered By: Hermes Velez on 08-30-2023 Monocytes (Bld) [#/Vol] 0.3 10*3/uL Normal 0.0-0.8 [facility] Comment on above: Performed By: #### A 1C WT eA, HGB, [id number], ALB #### [address] Automated eosinophil %Ordere d By: Hermes Velez on 08-30-2023 Eosinophils/100 WBC (Bld) 0.1 % Normal . [facility] Comment on above: Performed By: #### A 1C WT eA, HGB, [id number], ALB #### [address] Automated eosinophil countOr dered By: Hermes Velez on 08-30-2023 Eosinophils (Bld) [#/Vol] 0.0 10*3/uL Normal 0.0-0.45 [facility] Comment on above: Performed By: #### A 1C WT eA, HGB, [id number], ALB #### [address] Automated monocyte %Ordered By: Hermes Velez on 08-30-2023 Monocytes/100 WBC (Bld) 2.3 % Normal . [facility] Comment on above: Performed By: #### A 1C WT eA, HGB, [id number], ALB #### [address] Automated neutrophil %Ordere d By: Hermes Velez on 08-30-2023 Neutrophils/100 WBC (Bld) 92.4 % Normal . [facility] Comment on above: Performed By: #### A 1C WTH eA, HGB, [id number], ALB #### [address] BNP ser/plasOrdered By: Mookie Velez on 08-30-2023 Natriuretic peptide B (Bld) [Mass/Vol] 401.0 pg/mL High 5-100 [facility] Comment on above: Result Comment: PERF ORMED BY: [place] [address] PATHOLOGIST STRAP MACHINE OPERATOR AUTOMATIC ALAYNA CAPONE M.D. Performed By: #### A 1C WTH eA, HGB, [id number], ALB #### [address] Bacterial blood cultureOrder ed By: Hermes Velez on 08-30-2023 Bacteria identified Cx Nom (Bld) NO GROWTH 5 DAYS [facility] Basic Metabolic Panelon 08-08 Creatinine Clr Calc Pharmacy 82.75 Normal [facility] Comment on above: Result Comment: PERF ORMED BY: [place] [address] PATHOLOGIST STRAP MACHINE OPERATOR AUTOMATIC ALAYNA CAPONE M.D. Performed By: #### B ORTHOTIC TECHNICIAN #### [address] GFR/1.73 sq M.predicted MDRD (S/P/Bld) [Vol rate/Area] mL/min/{1.73_m2} Normal [facility] Comment on above: Performed By: #### B ORTHOTIC TECHNICIAN #### [address] Bilirubin Test strip Ql (U)O rdered By: Hermes Velez on 08-30-2023 Bilirubin Ql (U) Negative Negative [facility] Bilirubin.direct [Mass/volum e] in Serum or PlasmaOrdered By: Hermes Velez on 08-30-2023 Bilirubin.direct [Mass/Vol] 0.20 mg/dL High 0.03-0.18 [facility] Bilirubin.total [Mass/volume ] in Serum or PlasmaOrdered By: Hermes Velez on 08-30-2023 Bilirubin [Mass/Vol] 0.9 mg/dL Normal 0.3-1.0 [facility] Comment on above: Performed By: #### B ORTHOTIC TECHNICIAN #### [address] BioFire Not Detectedon 08-29 BioFire Not Detected Not detected Normal Not Detecte [facility] Comment on above: Result Comment: This is a duplicate RP2.1 COVID (PCR) result to be used for statistical tracking purpose only. PERFORMED BY: [place] [id number] PATHOLOGIST STRAP MACHINE OPERATOR AUTOMATIC ALAYNA CAPONE M.D. Performed By: #### A 1C WTH eA, HGB, [id number], ALB #### [place] [id number] [facility] Blood Cultureon 08-30-2023 Bacteria identified Cx Nom (Bld) NO GROWTH 5 DAYS PERFORMED BY: [place] [address] PATHOLOGIST STRAP MACHINE OPERATOR AUTOMATIC ALAYNA CAPONE M.D. Normal [facility] Comment on above: Performed By: #### B ORTHOTIC TECHNICIAN #### [place] [id number] [facility] Bacteria identified Cx Nom (Bld) [...] culture Not detected Group A (Streptococcus pyogenes) [id number] Not detected Group B Strep (Streptococcus agalactiae) [...] indic (more content not included)... Normal [facility] Comment on above: Performed By: #### B ORTHOTIC TECHNICIAN #### [address] COVID CepheidOrdered By: Rodney Krugerland on 08-30-2023 SARS-CoV-2 (COVID-19) Ab IA Ql Negative Negative [facility] Comment on above: This is a duplicate Cepheid Xpert Xpress CoV-2/Flu/RSV Plus RNA by RT-PCR result to be used for statistical tracking purpose only. SARS-CoV-2 (COVID-19) RNA ROSIE+probe Ql (Unsp spec) [facility] COVID-19 / Flu A/B / RSV PCR [...] or Cepheid Disclaimer revoked sooner. PERFORMED BY: [place] [id number] PATHOLOGIST STRAP MACHINE OPERATOR AUTOMATIC ALAYNA CAPONE M.D. Normal [facility] Comment on above: Performed By: #### A 1C WTH eA, HGB, [id number], ALB #### [address] COVID-19 Detected/Not Detect edOrdered By: Elliott Talley on 08-30-2023 SARS-CoV-2 (COVID-19) RNA ROSIE+non-probe Ql (Nph) Not detected Not Detecte [facility] Comment on above: This is a duplicate RP2.1 COVID (PCR) result to be used for statistical tracking purpose only. CT abdomen pelvis w conon CT abdomen pelvis w con [facility] [place] [address] [place], [place] [id number] CT Scan Report Signed Patient: Esme Steven MR#: [id number] : 1960 Acct:[id number] Age/Sex: 62 / M ADM Date: 08/30/23 Loc: ER Room: Type: [facility] ER Attending Dr: Copies to: Erin Suresh [...] Gisell Camilo M.D.08/30/2023 8:19 PM Dictation Location: [place] [address] Transcribed By: [facility] 08/30/232018 Dictated By: Gisell Camilo MD 08/30/232009 Signed By: 08/30/232018 Normal [facility] CT angio headon 08-30-2023 CT angio head [facility] [place] [address] [place] [address] CT Scan Report Signed Patient: Esme Steven MR#: [id number] : 1960 Acct:[id number] Age/Sex: 62 / M ADM Date: 08/30/23 Loc: ER Room: Type: [facility] ER Attending Dr: Copies to: Erin Suresh MD Ordering Provider: Erin Suresh MD Date of Service: 08/30/23 CT/CT angio head: acute headache, dizzy +6 hours ([id number]) CT/CT head/brain wo con: acute headache, dizzy ([id number]) CT/CT angio neck: thunderclap headache CLINICAL DATA: [...] volume rendered reconstructions of carotid arteries and [place] were reviewed. This CT exam [...] Gisell Camilo M.D.08/30/2023 8:09 PM Dictation Location: [place] [address] Transcribed By: [facility] 08/30/232008 Dictated By: Gisell Camilo MD 08/30/231958 Signed By: 08/30/232008 Normal [facility] Calcium [Mass/volume] in Ser um or PlasmaOrdered By: Hermes Velez on 08-30-2023 Calcium [Mass/Vol] 9.3 mg/dL Normal 8.6-10.3 [facility] Comment on above: Performed By: #### B ORTHOTIC TECHNICIAN #### [address] Carbon dioxide, total [Moles /volume] in Serum or PlasmaOrdered By: Hermes Velez on 05-23-2024 CO2 [Moles/Vol] 25.1 mmol/L Normal 21.0-31.0 [facility] Comment on above: Performed By: #### B ORTHOTIC TECHNICIAN #### [address] Cepheid COVID PCR Negativeon 08-30-2023 SARS-CoV-2 (COVID-19) RNA ROSIE+probe Ql (Unsp spec) Negative Normal Negative [facility] Comment on above: Result Comment: This is a duplicate Cepheid Xpert Xpress CoV-2/Flu/RSV Plus RNA by RT-PCR result to be used for statistical tracking purpose only. PERFORMED BY: [place] [address] PATHOLOGIST STRAP MACHINE OPERATOR AUTOMATIC ALAYNA CAPONE M.D. Performed By: #### B ORTHOTIC TECHNICIAN #### [address] Chloride [Moles/volume] in S ursula or PlasmaOrdered By: Hermes Velez on 08-30-2023 Chloride [Moles/Vol] 100 mmol/L Normal 98-107 [facility] Comment on above: Performed By: #### B ORTHOTIC TECHNICIAN #### [address] Color of Urine by AutoOrdere d By: Hermes Velez on 08-30-2023 Color (U) Yellow Yellow [facility] Comment on above: Order Comment: Name Collection Type:: Clean-Voided Midstream Performed By: #### U A ####[address] Complete Blood Count Auto Di ffon 08-30-2023 Mean Corpuscular HGB Conc 33.7 g/dL Normal 32.5-35.6 [facility] Comment on above: Performed By: #### A 1C WTH eA, HGB, [id number], ALB #### [address] Monocytes/100 WBC (Bld) 21.88 % High 0.00-20.00 [facility] Comment on above: Result Comment: For adults in ED, MDW > 20.0 may be associated with a higher risk of sepsis during the first 12 hrs of hospital admission Performed By: #### A 1C WTH eA, HGB, [id number], ALB #### [facility] [address] NRBC% 0.0 /100{WBC} Normal 0-0.5 [facility] Comment on above: Performed By: #### A 1C WTH eA, HGB, [id number], ALB #### [facility] [address] [place] [address] [place] Creatine kinase [Enzymatic a ctivity/volume] in Serum or PlasmaOrdered By: Hermes Velez on 08-30-2023 CK [Catalytic activity/Vol] 37 U/L [facility] Comment on above: Performed By: #### A 1C WTH eA, HGB, [id number], ALB #### [place] [address] [place] Creatinine [Mass/volume] in Serum or PlasmaOrdered By: Hermes Velez on 08-30-2023 Creatinine [Mass/Vol] 1.11 mg/dL Normal 0.70-1.30 [facility] Comment on above: Performed By: #### B ORTHOTIC TECHNICIAN #### [address] ECG 12 lead ECGon 08-30-2023 ECG 12 lead ECG [facility] [place] [address] [place] [address] Electrocardiograph Report Signed Patient: Esme tSeven MR#: [id number] : 1960 Acct:[id number] Age/Sex: 62 / M ADM Date: 08/30/23 Loc: Room: [address] [place] [address] Type: ADM [place] Attending Dr: Elliott Talley [...] was found Confirmed by Hermes Velez DO ([id number]) on 08/31/2023 1:02:08 AM Referred By: Electronically Signed By:Hermes Velez DO Transcribed By: MUS Signed By Hermes Velez DO 4 010 Normal [facility] ECG 12 lead ECG [facility] [place] [address] [place] [address] Electrocardiograph Report Signed Patient: Esme Steven MR#: [id number] : 1960 Acct:[id number] Age/Sex: 62 / M ADM Date: 08/30/23 Loc: Room: [address] [place] [address] Type: ADM [place] Attending Dr: Elliott Talley [...] Lateral leads Confirmed by Hermes Velez DO ([id number]) on 08/31/2023 1:02:08 AM Referred By: Electronically Signed By:Hermes Velez DO Transcribed By: MUS Signed By Hermes Velez DO 4 010 Normal [facility] Erythrocyte distribution wid th [Ratio] by Automated countOrdered By: Hermes Velez on 08-30-2023 Erythrocyte distribution width (RBC) [Ratio] 15.1 % High 12.0-14.8 [facility] Comment on above: Performed By: #### A 1C WTH eA, HGB, [id number], ALB #### [facility] [address] [place] [address] [place] Erythrocytes [#/volume] in B lood by Automated countOrdered By: Hermes Velez on 08-30-2023 RBC (Bld) [#/Vol] 4.70 10*6/uL Normal 3.90-5.60 [facility] Comment on above: Performed By: #### A 1C WTH eA, HGB, [id number], ALB #### [facility] [address] [place] [address] [place] Glucose [Mass/volume] in Ser um or PlasmaOrdered By: Hermes Velez on 08-30-2023 Glucose [Mass/Vol] 123 mg/dL High 70-100 [facility] Comment on above: ADA recommended refe rence rangeRandom Glucose Reference Range is dependent on time and content of last meal. Glucose of more than 200 mg/dL in a nonstressed, ambulatory subject supports the diagnosis of Diabetes Mellitus. Result Comment: [place] om Glucose Reference Range is dependent on time and content of last meal. Glucose of more than 200 mg/dL in a nonstressed, ambulatory subject supports the diagnosis of Diabetes Mellitus. ADA recommended reference range Performed By: #### B ORTHOTIC TECHNICIAN #### [facility] [address] [place] [address] [place] Hematocrit [Volume Fraction] of Blood by Automated countOrdered By: Hermes Velez on 08-30-2023 Hematocrit (Bld) [Volume fraction] 48.1 % Normal 38.8-50.0 [facility] Comment on above: Performed By: #### A 1C WTH eA, HGB, [id number], ALB #### [facility] [address] [place] [id number] [place] Hemoglobin [Mass/volume] in BloodOrdered By: Hermes Velez on 08-30-2023 Hemoglobin (Bld) [Mass/Vol] 16.2 g/dL Normal 13.0-17.0 [facility] Comment on above: Performed By: #### A 1C WTH eA, HGB, [id number], ALB #### [facility] [address] Hepatic Panelon 08-30-2023 Albumin [Mass/Vol] 4.2 g/dL Normal 3.5-5.7 [facility] Comment on above: Performed By: #### B ORTHOTIC TECHNICIAN #### [address] Bilirubin,Indirect 0.7 mg/dL Normal [facility] Comment on above: Performed By: #### B ORTHOTIC TECHNICIAN #### [facility] [address] Bilirubin.indirect [Mass/Vol] 0.20 mg/dL High 0.03-0.18 [facility] Comment on above: Performed By: #### B ORTHOTIC TECHNICIAN #### [address] INR in Platelet poor plasma by Coagulation assayOrdered By: Hermes Velez on 08-30-2023 INR Coag (PPP) [Relative time] 1.1 {INR} Normal [facility] Comment on above: INR Therapeutic Rang e [...] By: #### A 1C WTH eA, HGB, [id number], ALB #### [facility] [address] Ketones Auto test strip (U) [Mass/Vol]Ordered By: Hermes Velez on 08-30-2023 Ketones (U) [Mass/Vol] Negative Negative [facility] Lactate [Moles/volume] in Se rum or PlasmaOrdered By: Tony Comer on 08-30-2023 Lactate [Moles/Vol] 1.9 mmol/L 0.5-2.2 [facility] Comment on above: Result Comment: PERF ORMED BY: [place] [address] PATHOLOGIST STRAP MACHINE OPERATOR AUTOMATIC ALAYNA CAPONE M.D. Performed By: #### A 1C WTH eA, HGB, [id number], ALB #### [address] Lactic Acidon 08-30-2023 Lactate [Moles/Vol] 2.4 mmol/L Off scale high 0.5-2.2 [facility] Comment on above: Result Comment: Crit ical Result : Called to and read back by: MADELEINE ANDERSEN at: 08/30/2023 18:47:05 by:LFM PERFORMED BY: [place] [address] PATHOLOGIST STRAP MACHINE OPERATOR AUTOMATIC ALAYNA CAPONE M.D. Performed By: #### B ORTHOTIC TECHNICIAN #### [address] Leukocytes [#/volume] correc collins for nucleated erythrocytes in Blood by Automated counOrdered By: Hermes Velez on 08-30-2023 WBC corrected for nucl RBC Auto (Bld) [#/Vol] 14.5 10*3/uL 4.1-10.5 [facility] Leukocytes [#/volume] in Blo od by Automated countOrdered By: Hermes Velez on 08-30-2023 WBC (Bld) [#/Vol] 14.5 10*3/uL High 4.1-10.5 [facility] Comment on above: Performed By: #### A 1C WTH eA, HGB, [id number], ALB #### [place] [id number] [place] Lipase [Enzymatic activity/v olume] in Serum or PlasmaOrdered By: Hermes Velez on 08-30-2023 Lipase [Catalytic activity/Vol] 13.0 U/L 11.0-82.0 [facility] Comment on above: Result Comment: PERF ORMED BY: [place] [address] PATHOLOGIST STRAP MACHINE OPERATOR AUTOMATIC ALAYNA CAPONE M.D. Performed By: #### B ORTHOTIC TECHNICIAN #### [address] Lymphocytes [#/volume] in Bl ood by Automated countOrdered By: Hermes Velez on 08-30-2023 Lymphocytes (Bld) [#/Vol] 0.6 10*3/uL Low 1.00-4.8 [facility] Comment on above: Performed By: #### A 1C WTH eA, HGB, [id number], ALB #### [address] Lymphocytes/100 leukocytes i n Blood by Automated countOrdered By: Hermes Velez on 08-30-2023 Lymphocytes/100 WBC (Bld) 4.4 % Normal . [facility] Comment on above: Performed By: #### A 1C WTH eA, HGB, [id number], ALB #### [address] MCH [Entitic mass] by Automa collins countOrdered By: Hermes Velez on 08-30-2023 MCH (RBC) [Entitic mass] 34.5 pg Normal 27.5-35.2 [facility] Comment on above: Performed By: #### A 1C WTH eA, HGB, [id number], ALB #### [address] MCHC Auto (RBC) [Mass/Vol]Or dered By: Hermes Velez on 08-30-2023 MCHC (RBC) [Mass/Vol] 33.7 g/dL 32.5-35.6 [facility] MCV [Entitic volume] by Auto mated countOrdered By: Hermes Velez on 08-30-2023 MCV (RBC) [Entitic vol] 102.3 fL High 83.5-101 [facility] Comment on above: Performed By: #### A 1C [facility] eA, HGB, [id number], ALB #### [facility] [address] [place] [address] [place] Monocyte distribution width [Entitic volume] in Blood by AutomatedOrdered By: Hermes Velez on 08-30-2023 Monocyte distribution width Auto (Bld) [Entitic vol] 21.88 % High 0.00-20.00 [facility] Comment on above: For adults in ED, MD W > 20.0 may be associated with a higher risk of sepsis during the first 12 hrs of hospital admission Neutrophils [#/volume] in Bl ood by Automated countOrdered By: Hermes Velez on 08-30-2023 Neutrophils (Bld) [#/Vol] 13.4 10*3/uL High 1.8-7.7 [facility] Comment on above: Performed By: #### A 1C [facility] eA, HGB, [id number], ALB #### [facility] [address] Nitrite Test strip Ql (U)Ord ered By: Hermes Velez on 08-30-2023 Nitrite Ql (U) Negative Negative [facility] No Panel InformationOrdered By: Hermes Velez on 08-30-2023 Bacterial ID (NA Multiplex Assay) Presumptive Coag Neg. Staph [facility] Bacterial ID (NA Multiplex Assay) Staphylococcus sp coag neg Abnormal [facility] Estimated GFR (CKD-EPI) > 60.0 mL/Min [facility] Creatinine Clearance (Chem 82.75 [facility] Nucleated erythrocytes [Pres ence] in Blood by Automated countOrdered By: Hermes Velez on 08-30-2023 Nucleated RBC Auto Ql (Bld) 0.0 /100{WBC} 0-0.5 [facility] Partial Thromboplastin Timeo n 08-30-2023 aPTT Coag (Bld) [Time] 25.5 s Normal 25.1-36.5 [facility] Comment on above: Result Comment: A he matocrit value greater than 55% may lead to inaccurate results in coagulation testing. Patients having hematocrit values >55% require a special collection tube for coagulation studies. Please contact the laboratory at [phone] for redraw instructions. PERFORMED BY: [place] [address] PATHOLOGIST STRAP MACHINE OPERATOR AUTOMATIC ALAYNA CAPONE M.D. Performed By: #### A 1C WTH eA, HGB, [id number], ALB #### [address] Platelet mean volume [Entiti c volume] in Blood by Automated countOrdered By: Hermes Velez on 08-30-2023 Platelet mean volume (Bld) [Entitic vol] 8.7 fL Normal 6.6-10.1 [facility] Comment on above: Performed By: #### A 1C WTH eA, HGB, [id number], ALB #### [address] Platelets [#/volume] in Bloo d by Automated countOrdered By: Hermes Velez on 08-30-2023 Platelets (Bld) [#/Vol] 147 10*3/uL Low 150-450 [facility] Comment on above: Performed By: #### A 1C WTH eA, HGB, [id number], ALB #### [address] Potassium [Moles/volume] in Serum or PlasmaOrdered By: Hermes Velez on 08-30-2023 Potassium [Moles/Vol] 3.3 mmol/L Low 3.5-5.1 [facility] Comment on above: Performed By: #### B ORTHOTIC TECHNICIAN #### [address] Protein Auto test strip (U) [Mass/Vol]Ordered By: Hermes Velez on 08-30-2023 Protein (U) [Mass/Vol] Negative Negative [facility] Protein [Mass/volume] in Ser um or PlasmaOrdered By: Hermes Velez on 08-30-2023 Protein [Mass/Vol] 7.0 g/dL Normal 6.4-8.9 [facility] Comment on above: Performed By: #### B ORTHOTIC TECHNICIAN #### [facility] [address] [id number] [facility] Prothrombin time (PT)Ordered By: Hermes Velez on 08-30-2023 PT Coag (PPP) [Time] 12.8 s Normal 9.0-12.9 [facility] Comment on above: A hematocrit value g reater than 55% may lead to inaccurate results in coagulation testing. Patients having hematocrit values >55% require a special collection tube for coagulation studies. Please contact the laboratory at [phone] for redraw instructions. Result Comment: A he matocrit value greater than 55% may lead to inaccurate results in coagulation testing. Patients having hematocrit values >55% require a special collection tube for coagulation studies. Please contact the laboratory at [phone] for redraw instructions. Performed By: #### A 1C WTH eA, HGB, [id number], ALB #### [facility] [address] [id number] [facility] Respiratory (Upper) Panel, P CRon [...] A H3 Blank Space ---- PERFORMED BY: [place] [address] PATHOLOGIST STRAP MACHINE OPERATOR AUTOMATIC ALAYNA CAPONE M.D. Normal [facility] Comment on above: Performed By: #### A 1C WTH eA, HGB, [id number], ALB #### [address] Respiratory pathogens DNA an d RNA panel - Nasopharynx by ROSIE with non-probe detectionOrdered By: Elliott Talley on 08-30-2023 Respiratory pathogens DNA and RNA panel ROSIE+non-probe (Nph) [facility] Serum globulin measurement b y calculation (mass/volume)Ordered By: Hermes Velez on 08-30-2023 Globulin (S) [Mass/Vol] 2.8 g/dL [facility] Comment on above: Performed By: #### B ORTHOTIC TECHNICIAN #### [address] Serum or plasma albumin/glob ulin mass ratioOrdered By: Hermes Velez on 08-30-2023 Albumin/Globulin [Mass ratio] 1.5 {ratio} [facility] Comment on above: Performed By: #### B ORTHOTIC TECHNICIAN #### [address] Serum or plasma anion gap de terminationOrdered By: Hermes Velez on 08-30-2023 Anion gap [Moles/Vol] 14.2 mmol/L Normal 6.0-15.0 [facility] Comment on above: Performed By: #### B ORTHOTIC TECHNICIAN #### [address] Serum or plasma non-glucuron idated bilirubin measurement (mass/volume)Ordered By: Hermes Velez on 08-30-2023 Bilirubin.indirect [Mass/Vol] 0.7 mg/dL [facility] Sodium [Moles/volume] in Ser um or PlasmaOrdered By: Hermes Velez on 08-30-2023 Sodium [Moles/Vol] 136 mmol/L Normal 136-145 [facility] Comment on above: Performed By: #### B ORTHOTIC TECHNICIAN #### [address] Specific gravity Auto test s trip (U) [Rel density]Ordered By: Hermes Velez on 08-30-2023 Specific gravity (U) [Rel density] 1.016 1.001-1.03 0 [facility] Troponin I High Sensitivityo n 08-30-2023 Troponin I High Sensitivity 16.9 pg/mL Normal 0.0-20.0 [facility] Comment on above: Result Comment: PERF ORMED BY: [place] [address] PATHOLOGIST STRAP MACHINE OPERATOR AUTOMATIC ALAYNA CAPONE M.D. Performed By: #### U A #### [address] Troponin I High Sensitivity 15.6 pg/mL Normal 0.0-20.0 [facility] Comment on above: Result Comment: PERF ORMED BY: [place] [address] PATHOLOGIST STRAP MACHINE OPERATOR AUTOMATIC ALAYNA CAPONE M.D. Performed By: #### A 1C WTH eA, HGB, [id number], ALB #### [address] Troponin I.cardiac [Mass/vol ume] in Serum or Plasma by Detection limit <= 0.01 ng/Ordered By: Erin Suresh on 08-30-2023 Troponin I.cardiac DL <= 0.01 ng/mL [Mass/Vol] 16.9 pg/mL 0.0-20.0 [facility] Urea nitrogen [Mass/volume] in Serum or PlasmaOrdered By: Hermes Velez on 08-30-2023 Urea nitrogen [Mass/Vol] 21 mg/dL Normal 7-25 [facility] Comment on above: Performed By: #### B ORTHOTIC TECHNICIAN #### [address] Urinalysison 08-30-2023 Appearance (U) Clear Normal Clear [facility] Comment on above: Order Comment: Name Collection Type:: Clean-Voided Midstream Performed By: #### U A ####[address] [address] [facility] Bilirubin,Urine Negative Normal Negative [facility] Comment on above: Order Comment: Name Collection Type:: Clean-Voided Midstream Performed By: #### U A ####[address] [address] [facility] Glucose Ql (U) Normal Normal Normal [facility] Comment on above: Order Comment: Name Collection Type:: Clean-Voided Midstream Performed By: #### U A ####[address] [address] [facility] Ketones Ql (U) Negative Normal Negative [facility] Comment on above: Order Comment: Name Collection Type:: Clean-Voided Midstream Performed By: #### U A ####[address] [address] [facility] Leukocyte esterase Test strip Ql (U) Negative Normal Negative [facility] Comment on above: Order Comment: Name Collection Type:: Clean-Voided Midstream Performed By: #### U A ####[address] [address] [facility] Nitrite,Urine Negative Normal Negative [facility] Comment on above: Order Comment: Name Collection Type:: Clean-Voided Midstream Performed By: #### U A ####[address] [address] [facility] Occult Blood,Urine Negative Normal Negative [facility] Comment on above: Order Comment: Name Collection Type:: Clean-Voided Midstream Result Comment: PERF ORMED BY: [facility] [address] [place] [address] PATHOLOGIST STRAP MACHINE OPERATOR AUTOMATIC ALAYNA CAPONE M.D. Performed By: #### U A ####[address] [address] [place] Protein,Urine Negative Normal Negative [facility] Comment on above: Order Comment: Name Collection Type:: Clean-Voided Midstream Performed By: #### U A ####[address] [place] [id number] [facility] Specificy [place],Urine 1.016 Normal 1.001-1.03 0 [facility] Comment on above: Order Comment: Name Collection Type:: Clean-Voided Midstream Performed By: #### U A ####[address] [id number] [facility] Urobilinogen,Urine Normal Normal Normal [facility] Comment on above: Order Comment: Name Collection Type:: Clean-Voided Midstream Performed By: #### U A ####[address] Urine clarity by refractomet ry automatedOrdered By: Hermes Velez on 08-30-2023 Clarity Refractometry automated (U) Clear Clear [facility] Urine glucose measurement by automated test strip (mass/volume)Ordered By: Hermes Velez on 08-30-2023 Glucose Auto test strip (U) [Mass/Vol] Normal mg/dL Normal [facility] Urine hemoglobin detection b y automated test stripOrdered By: Hermes Velez on 08-30-2023 Hemoglobin Auto test strip Ql (U) Negative Negative [facility] Urine leukocyte esterase det ection by automated test stripOrdered By: Hermes Velez on 08-30-2023 Leukocyte esterase Auto test strip Ql (U) Negative Negative [facility] Urine pH measurement by auto mated test stripOrdered By: Hermes Velez on 08-30-2023 pH (U) 5.5 [pH] 5.0-9.0 [facility] Comment on above: Order Comment: Name Collection Type:: Clean-Voided Midstream Performed By: #### U A ####[address] [id number] [facility] Urobilinogen Auto test strip (U) [Mass/Vol]Ordered By: Hermes Velez on 08-30-2023 Urobilinogen (U) [Mass/Vol] Normal mg/dL Normal [facility] XR chest 1V portableon 08-29 XR chest 1V portable [facility] [address] [place] [address] [place] [address] XRay Report Signed Patient: Esme Steven MR#: [id number] : 1960 Acct:[id number] Age/Sex: 62 / M ADM Date: 08/30/23 Loc: ER Room: Type: [facility] ER Attending Dr: Copies to: DO Erin [...] Gisell Camilo M.D.08/30/2023 7:36 PM Dictation Location: [place] [address] Transcribed By: [facility] 08/30/231935 Dictated By: Gisell Camilo MD 08/30/231932 Signed By: 08/30/231935 Normal [facility] ECG 12 Leadon 08-16-2023 [facility] Work Phone: Sinus with PVC.s [facility] Work Phone: Carbon dioxide, total [Moles /volume] in Serum or PlasmaOrdered By: Antonio Mora on 08-02-2023 CO2 [Moles/Vol] 26.4 mmol/L 21.0-31.0 [facility] Comment on above: Performed By: #### A 1C WTH eA, HGB, [id number], ALB #### [facility] [address] Chloride [Moles/volume] in S ursula or PlasmaOrdered By: Antonio Mora on 08-02-2023 Chloride [Moles/Vol] 102 mmol/L 98-107 [facility] Comment on above: Performed By: #### A 1C WTH eA, HGB, [id number], ALB #### [facility] [address] ECG 12 lead ECGon 08-02-2023 ECG 12 lead ECG [facility] [place] [address] Electrocardiograph Report Signed Patient: Esme Steven MR#: [id number] : 1960 Acct:[id number] Age/Sex: 62 / M ADM Date: 08/02/23 Loc: Room: Type: [facility] Attending Dr: Antonio Mora MD Ordering Provider: [...] in Lateral leads Confirmed by Ada Woodruff ([id number]) on 08/02/2023 5:37:54 PM Referred By: Antonio Mora Electronically Signed By:Ada Woodruff Transcribed By: MUS Signed By Ada Woodruff MD 4 7357 Normal [facility] ECG post procedureon 024 ECG post procedure [facility] [place] [address] Electrocardiograph Report Signed Patient: Esme Steven MR#: [id number] : 1960 Acct:[id number] Age/Sex: 62 / M ADM Date: 08/02/23 Loc: Room: Type: [facility] Attending Dr: Antonio Mora MD Ordering Provider: [...] no longer present Confirmed by Ada Woodruff ([id number]) on 08/02/2023 5:38:48 PM Referred By: Antonio Mora Electronically Signed By:Ada Woodruff Transcribed By: MUS Signed By Ada Woodruff MD 4 1738 Normal [facility] Potassium [Moles/volume] in Serum or PlasmaOrdered By: Antonio Mora on 08-02-2023 Potassium [Moles/Vol] 4.1 mmol/L 3.5-5.1 [facility] Comment on above: Performed By: #### A 1C WTH eA, HGB, [id number], ALB #### [address] Serum or plasma anion gap de terminationOrdered By: Antonio Mora on 08-02-2023 Anion gap [Moles/Vol] 13.7 mmol/L 6.0-15.0 [facility] Comment on above: Result Comment: PERF ORMED BY: [place] [address] PATHOLOGIST STRAP MACHINE OPERATOR AUTOMATIC ALAYNA CAPONE M.D. Performed By: #### A 1C WTH eA, HGB, [id number], ALB #### [address] [place] [address] [facility] Sodium [Moles/volume] in Ser um or PlasmaOrdered By: Antonio Mora on 08-02-2023 Sodium [Moles/Vol] 138 mmol/L 136-145 [facility] Comment on above: Performed By: #### A 1C WTH eA, HGB, [id number], ALB #### [facility] [address] [id number] [facility] ECG 12 Leadon 07-27-2023 Atrial fibrillation with controlled rate [facility] Work Phone: CNPNon 07-09-2023 CNPN Telephone (RADHA) ----- ESME STEVEN ([id number]) 1960 M Date Time Provider Department 07/09/23 [...] Please process accordingly. MD Chino Jeffery Theresa [facility] 07/09/2023 11:58 AM Signed Called and spoke to patient. He is aware of message below from Dr. Pineda. Patient verbalized understanding. Allergies As of Date: 07/09/2023 (No Known Allergies) Date Reviewed: 07/05/2023 Reviewed by: Heladio Pineda MD - Fully Assessed Reason for Visit: Results [95] Primary Visit Diagnosis:PMR (polymyalgia rheumatica) ([facility]) [M35.3] Other Visit Diagnoses:Elevated sed rate [R70.0] Elevated C-reactive protein (CRP) [R79.82] Vitamin D deficiency [E55.9] Order(s):SED RATE WESTERGREN [SQWSR] Order #: [id number] FUTURE C-REACTIVE PROTEIN (CRP) [SQCRP] Order #: [id number] FUTURE VITAMIN D 25 HYDROXY [SQVITD] Order #: [id number] FUTURE ergocalciferol 50,000 unit capsule (VITAMIN D2, [...] PMR (polymyalgi (more content not included)... Normal [facility] 25(OH)D3 SerPl-mCncon 2023 25-hydroxyvitamin D3 [Mass/Vol] 21.4 ng/mL Low 31.0-80.0 [facility] Comment on above: Order Comment: Speci men Type: BLOOD SPECIMENOrdering Facility: [facility] Address: [address] [place] [address] Result Comment: Clas sification of 25 [place] Vitamin D status: Deficiency/Insufficiency: < or = 30 ng/ml. Sufficiency/Optimal Levels: 31-80 ng/mL Toxicity: > 100 ng/mL. Test performed by chemiluminescent immunoassay. Performed By: #### 1 989-3 ####[facility] [id number] [place] [address] [place] Aldolase SerPl-cCncon 2023 Aldolase [Catalytic activity/Vol] 5.3 mU/mL Normal 1.5-8.1 [facility] Comment on above: Order Comment: Mil rivera Type: BLOOD SPECIMENOrdering Facility: [facility] Address: [address] [place] [address] Result Comment: This test was developed and its performance characteristics determined by [facility]'s Sarai JBarbara [facility] [place] ([facility]). It has not been cleared or approved by the FDA. [facility] is regulated under CLIA as qualified to perform high-complexity testing. This test is used for clinical purposes. It should not be regarded as investigational or for research. Performed By: #### 1 761-6 ####[facility] [id number] [place] [address] [place] CK SerPl-cCncon 07-05-2023 CK [Catalytic activity/Vol] 52 U/L Normal 51-298 [facility] Comment on above: Order Comment: Speci men Type: BLOOD SPECIMENOrdering Facility: [facility] Address: [address] [place] [address] Performed By: #### 2 157-6, 1988-5, 3084-1, 2132-9 ####[facility] [id number] D[address]EMar[id number] [id number] [facility] [place] CNNURSEon 07-05-2023 CNNURSE Nurse Visit (RADHA) ----- ESME STEVEN ([id number]) 1960 M Date Time Provider Department 07/05/23 10:30 AM NURSE BRANDON [facility] GARCIA During your visit today, we recorded the following information about you: Referring Provider: HELADIO PINEDA [[id number]] Allergies As of Date: 07/05/2023 (No Known Allergies) Date Reviewed: 07/05/2023 Reviewed by: Ruben Monterroso MA - Fully Assessed Primary Visit Diagnosis:PMR (polymyalgia rheumatica) ([facility]) [M35.3] Prescriptions as of 07/05/2023 - ELIQUIS [...] 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 Normal [facility] CRP SerPl-mCncon 07-05-2023 CRP [Mass/Vol] 0.8 mg/dL Normal <0.9 [facility] Comment on above: Order Comment: Speci men Type: BLOOD SPECIMENOrdering Facility: [facility] Address: [address] [place] [address] Performed By: #### 2 157-6, 1987-, 3084-1, 2131- ####[facility] [id number] [place] [address] [place] CT biopsyon 07-05-2023 CT biopsy 5.3 U/L 1.5-8.1 [facility] Comment on above: This test was develo ped and its performance characteristics determined by [facility]'s Sarai [facility] [place] ([facility]). It has not been cleared or approved by the FDA. [facility] is regulated under CLIA as qualified to perform high-complexity testing. This test is used for clinical purposes. It should not be regarded as investigational or for research. ESR Westergren method (Bld) [Velocity]on 07-05-2023 ESR (Bld) [Velocity] 15 mm/h Normal 0-15 [facility] Comment on above: Order Comment: Speci men Type: BLOOD SPECIMENOrdering Facility: [facility] Address: [address] [place] [address] Performed By: #### 4 537-7 ####[facility] [id number] [place] [address] [place] Laboratory - Chemistry and C hemistry - challengeon 07-05-2023 CK [Catalytic activity/Vol] 52 U/L 51-298 [facility] Cobalamin (Vitamin B12) [Mass/Vol] 685 pg/mL 232-1245 [facility] Urate [Mass/Vol] 7.2 mg/dL 4.0-8.1 [facility] - Hematology and Cell countson 07-05-2023 ESR (Bld) [Velocity] 15 mm/h 0-15 [facility] No Panel Informationon 07-04 C-Reactive Protein, Quantitative 0.8 mg/dL <0.9 [facility] Serum or plasma calcidiol me asurement (mass/volume)on 07-05-2023 25-hydroxyvitamin D3 [Mass/Vol] 21.4 ng/mL 31.0-80.0 [facility] Comment on above: Classification of 25 [place] Vitamin D status: Deficiency/Insufficiency: < or = 30 ng/ml.Sufficiency/Optimal Levels: 31-80 ng/mLToxicity: > 100 ng/mL. Test performed by chemiluminescent immunoassay. Urate SerPl-mCncon Urate [Mass/Vol] 7.2 mg/dL Normal 4.0-8.1 [facility] Comment on above: Order Comment: Mil rivera Type: BLOOD SPECIMENOrdering Facility: [facility] Address: [address] [place], [place] [address] Performed By: #### 2 157-6, 1987-08, 3083-04, 2131-12 ####[facility] [id number] [place] [address] [place] Vit B12 SerPl-mCncon 024 Cobalamin (Vitamin B12) [Mass/Vol] 685 pg/mL Normal 232-1245 [facility] Comment on above: Order Comment: Mil nicole Type: BLOOD SPECIMENOrdering Facility: [facility] Address: [address] [place], [place] [address] [place] [address] Performed By: #### 2 157-6, 1987-08, 3083-04, 2131-12 ####[facility] [id number] [address] [place] CNPLesly 06-30-2023 CNPN Telephone (RADHA) ----- ESME STEVEN ([id number]) 1960 M Date Time Provider Department 06/30/23 [...] [facility] Allergies As of Date: 06/30/2023 (No Known [...] Idiopathic 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 or the previous bone density was performed on a different DXA machine (new, updated model or different location) within the [facility]. VERTEBRAL FRACTURE ASSESSMENT Not performed. [...] FOR MORE INFORMATION ABOUT DIAGNOSIS AND TREATMENT: [facility] for Osteoporosis and Metabolic Bone Disease:? www.ccf.org/arthritis/ost eo National Osteoporosis Foundation:? www.nof.org International Society of Clinical Densitometry www.iscd.org Employment Security Officer: RAQUEL Transcribe Date/Time: Jun 28 2023 1:37P Dictated by : KEREN BRAVO DO This examination was interpreted and the report reviewed and electronically signed by: KEREN BRAVO DO on Jun 28 2023 1:47PM EST [id number] [facility] BD DXA - FOREARM SKELETONon 06-28-2023 [...] years, Gender: Male SCANNER INFORMATION: DXA Model: Dealupa Date Scanned: 06/28/2023 12:56 PM CLINICAL HISTORY: [...] had a previous bone density in the [facility] or the previous bone density was performed on a different DXA machine (new, updated model or different location) within the [facility]. VERTEBRAL FRACTURE ASSESSMENT Not performed. [...] FOR MORE INFORMATION ABOUT DIAGNOSIS AND TREATMENT: [facility] for Osteoporosis and Metabolic Bone Disease:? www.ccf.org/arthritis/ost eo National Osteoporosis Foundation:? www.nof.org International Society of Clinical Densitometry www.iscd.org Employment Security Officer: RAQUEL Transcribe Date/Time: Jun 28 2023 1:37P Dictated by : KEREN BRAVO DO This examination was interpreted and the report reviewed and electronically signed by: KEREN BRAVO DO on Jun 28 2023 1:47PM EST [id number] [facility] DXA Radius and Ulna [Mass/Ar ea] Bone densityon 06-28-2023 [facility] DXA Skeletal system.axial Vi ews for bone densityon 06-28-2023 [facility] BASIC METABOLIC PANLon 06-11 Anion gap [Moles/Vol] 10 mmol/L Normal 5-15 [facility] Comment on above: Performed By: #### RAIMUNDO Wong BCA, #### [facility] ([id number]) [address], [address] [place] [address] Calcium [Mass/Vol] 9.3 mg/dL Normal 8.5-10.5 [facility] Comment on above: Performed By: #### RAIMUNDO Wong BCA, 05207-8 #### [facility] ([id number]) [address], [address] [place] [address] Chloride [Moles/Vol] 102 mmol/L Normal 98-109 [facility] Comment on above: Performed By: #### RAIMUNDO Wong BCA, 83604-3 #### [facility] ([id number]) [address], [address] [place] [address] CO2 [Moles/Vol] 25 mmol/L Normal 22-32 [facility] Comment on above: Performed By: #### RAIMUNDO Wong BCA, #### [facility] ([id number]) [address], [address] [place] [address] Creatinine [Mass/Vol] 0.95 mg/dL Normal 0.60-1.30 [facility] Comment on above: Result Comment: METH OD TRACEABLE TO IDMS STANDARD Performed By: #### RAIMUNDO Wong BCA, #### [facility] ([id number]) [address], [address] [place] [address] GFR/1.73 sq M.predicted among non-blacks MDRD (S/P/Bld) [Vol rate/Area] 90 mL/min/{1.73_m2} Normal >59 [facility] Comment on above: Result Comment: Reported eGFR is based on the CKD-EPI 2020 equation that does not use a race coefficient. Performed By: #### RAIMUNDO Wong BCA, 07275-3 #### [facility] ([id number]) [address], [address] [place] [address] Glucose [Mass/Vol] 117 mg/dL High 65-99 [facility] Comment on above: Performed By: #### RAIMUNDO Wong BCA, #### [facility] ([id number]) [address], [address] [place] [address] Potassium [Moles/Vol] 3.9 mmol/L Normal 3.5-5.0 [facility] Comment on above: Performed By: #### RAIMUNDO Wong BCA, #### [facility] ([id number]) [address], [address] [place] [address] Sodium [Moles/Vol] 137 mmol/L Normal 134-146 [facility] Comment on above: Performed By: #### Marvin GOLDSMITH [facility], 84237-0 #### [facility] ([id number]) [address], [address] [place] [address] Urea nitrogen [Mass/Vol] 20 mg/dL Normal 5-27 [facility] Comment on above: Performed By: #### Marvin GOLDSMITH [facility], #### [facility] ([id number]) [address], [address] [place] [address] CBC AND AUTO DIFFon 06-12-19 24 ABSOLUTE BASOPHIL 0.1 X10E9/L Normal 0.0-0.2 [facility] Comment on above: Performed By: #### RAIMUNDO Wong BCA, 14562-4 #### [facility] ([id number]) [address], [address] [place] [address] ABSOLUTE NEUTROPHIL 5.9 X10E9/L Normal 1.5-6.6 [facility] Comment on above: Performed By: #### RAIMUNDO Wong BCA, #### [facility] ([id number]) [address], [address] [place] [address] Basophils/100 WBC (Bld) 0.6 % Normal [facility] Comment on above: Performed By: #### RAIMUNDO Wong BCA, #### [facility] ([id number]) [address], [address] [place] [address] Eosinophils (Bld) [#/Vol] 0.1 10*3/uL Normal 0.0-0.4 [facility] Comment on above: Performed By: #### RAIMUNDO Wong BCA, #### [facility] ([id number]) [address], [address] [place] [address] Eosinophils/100 WBC (Bld) 1.0 % Normal [facility] Comment on above: Performed By: #### RAIMUNDO Wong BCA, #### [facility] ([id number]) [address] [place] [address] Erythrocyte distribution width (RBC) [Ratio] 14.4 % Normal 11.5-15.0 [facility] Comment on above: Performed By: #### RAIMUNDO Wong BCA, #### [facility] ([id number]) [address], [address] [place] [address] Hematocrit (Bld) [Volume fraction] 46.6 % Normal 39-49 [facility] Comment on above: Performed By: #### RAIMUNDO Wong BCA, #### [facility] ([id number]) [address], [address] [place] [address] Hemoglobin (Bld) [Mass/Vol] 15.6 g/dL Normal 13.0-17.0 [facility] Comment on above: Performed By: #### RAIMUNDO Wong BCA, #### [facility] ([id number]) [address], [address] [place] [address] Lymphocytes (Bld) [#/Vol] 2.2 10*3/uL Normal 1.0-3.5 [facility] Comment on above: Performed By: #### RAIMUNDO Wong BCA, #### [facility] ([id number]) [address], [address] [place] [address] Lymphocytes/100 WBC (Bld) 25.1 % Normal [facility] Comment on above: Performed By: #### RAIMUNDO Wong BCA, #### [facility] ([id number]) [address], [address] [place] [address] MCH (RBC) [Entitic mass] 33.5 pg Normal 27-34 [facility] Comment on above: Performed By: #### RAIMUNDO Wong BCA, #### [facility] ([id number]) [address], [address] [place] [address] MCHC (RBC) [Mass/Vol] 33.4 g/dL Normal 32-36 [facility] Comment on above: Performed By: #### RAIMUNDO Wong BCA, #### [facility] ([id number]) [address], [address] [place] [address] MCV (RBC) [Entitic vol] 100 fL Normal 80-100 [facility] Comment on above: Performed By: #### RAIMUNDO Wong BCA, #### [facility] ([id number]) [address], [address] [place] [address] Monocytes (Bld) [#/Vol] 0.7 10*3/uL Normal 0-0.9 [facility] Comment on above: Performed By: #### RAIMUNDO Wong BCA, #### [facility] ([id number]) [address], [address] [place] [address] Monocytes/100 WBC (Bld) 7.5 % Normal [facility] Comment on above: Performed By: #### Marvin GOLDSMITH, BMP, #### [facility] ([id number]) [address], [address] [place] [address] Neutrophils/100 WBC (Bld) 65.8 % Normal [facility] Comment on above: Performed By: #### Marvin GOLDSMITH, BMP, #### [facility] ([id number]) [address], [address] [place] [address] Platelet mean volume (Bld) [Entitic vol] 9.3 fL Normal 7-12 [facility] Comment on above: Performed By: #### Marvin GOLDSMITH, [facility], #### [facility] ([id number]) [address], [address] [place] [address] Platelets (Bld) [#/Vol] 216 10*3/uL Normal 150-450 [facility] Comment on above: Performed By: #### Marvin GOLDSMITH, BMP, #### [facility] ([id number]) [address], [address] [place] [address] RBC COUNT 4.65 X10E12/L Normal 4.10-5.70 [facility] Comment on above: Performed By: #### Marvin GOLDSMITH, BMP, #### [facility] ([id number]) [address], [address] [place] [address] WBC (Bld) [#/Vol] 8.9 10*3/uL Normal 4.0-11.0 [facility] Comment on above: Performed By: #### Mravin GOLDSMITH, BMP, #### [facility] ([id number]) [address], [address] [place] [address] MAGNESIUMon 06-12-2023 Magnesium [Mass/Vol] 1.5 mg/dL Low 1.8-2.6 [facility] Comment on above: Performed By: #### C MP, PINR, 41181-9, 51475-4, CBCA, 36628-8, 44176-3 #### [facility] ([id number]) [address] [facility], [place] [address] US venous duplex LE BIon US venous duplex LE BI [facility] [address] [place] [address] [place] [address] Ultrasound Report Signed Patient: Esme Steven MR#: [id number] : 1960 Acct:[id number] Age/Sex: 62 / M ADM Date: 05/21/23 Loc: Room: Type: [facility] Attending Dr: Melinda SOLORZANO Ordering Provider: SUSANA [...] Tony Rock MD05/22/2023 1:38 PM Dictation Location: [place] [address] Tech: Yeni Rico Transcribed By: GWEN 05/22/23 1338 Dictated By: Tony Rock MD 05/22/23 1338 Signed By: 05/22/23 1338 Normal [facility] Automated basophil %Ordered By: Melinda Verduzco on 05-21-2023 Basophils/100 WBC (Bld) 0.6 % Normal . [facility] Comment on above: Order Comment: Reaso n for Exam Pain due to internal orthopedic prosthetic devices, implants Performed By: #### C BC, CRP, ESR, DDIMER ####[address] Automated basophil countOrde red By: Melinda Luba on 05-21-2023 Basophils (Bld) [#/Vol] 0.1 10*3/uL Normal 0.0-0.2 [facility] Comment on above: Order Comment: Reaso n for Exam Pain due to internal orthopedic prosthetic devices, implants Performed By: #### C BC, CRP, ESR, DDIMER ####[address] Automated blood monocyte cou ntOrdered By: Melinda Verduzco on 05-21-2023 Monocytes (Bld) [#/Vol] 1.0 10*3/uL High 0.0-0.8 [facility] Comment on above: Order Comment: Reaso n for Exam Pain due to internal orthopedic prosthetic devices, implants Performed By: #### C BC, CRP, ESR, DDIMER ####[address] Automated eosinophil %Ordere d By: Melinda Verduzco on 05-21-2023 Eosinophils/100 WBC (Bld) 0.4 % Normal . [facility] Comment on above: Order Comment: Reaso n for Exam Pain due to internal orthopedic prosthetic devices, implants Performed By: #### C BC, CRP, ESR, DDIMER ####[place] [id number] [facility] Automated eosinophil countOr dered By: Melinda Verduzco on 05-21-2023 Eosinophils (Bld) [#/Vol] 0.1 10*3/uL Normal 0.0-0.45 [facility] Comment on above: Order Comment: Reaso n for Exam Pain due to internal orthopedic prosthetic devices, implants Performed By: #### C BC, CRP, ESR, DDIMER ####[place] [address] [place] [address] [facility] Automated monocyte %Ordered By: Melinda Verduzco on 05-21-2023 Monocytes/100 WBC (Bld) 6.8 % Normal . [facility] Comment on above: Order Comment: Reaso n for Exam Pain due to internal orthopedic prosthetic devices, implants Performed By: #### C BC, CRP, ESR, DDIMER ####[address] [address] [facility] Automated neutrophil %Ordere d By: Melinda Verduzco on 05-21-2023 Neutrophils/100 WBC (Bld) 78.3 % Normal . [facility] Comment on above: Order Comment: Reaso n for Exam Pain due to internal orthopedic prosthetic devices, implants Performed By: #### C BC, CRP, ESR, DDIMER ####[address] [address] [facility] C reactive protein [Mass/vol ume] in Serum or PlasmaOrdered By: Melinda Verduzco on 05-21-2023 CRP [Mass/Vol] 0.5 mg/dL 0.0-0.5 [facility] C-Reactive Proteinon 024 C-Reactive Protein 0.5 mg/dL Normal 0.0-0.5 [facility] Comment on above: Order Comment: Reaso n for Exam Pain due to internal orthopedic prosthetic devices, implants Result Comment: PERF ORMED BY: [facility] [address] [place] [id number] PATHOLOGIST STRAP MACHINE OPERATOR [employer] ALAYNA CAPONE M.D. Performed By: #### C BC, CRP, ESR, DDIMER ####[address] [address] [facility] Complete Blood Count Auto Di ffon 05-21-2023 Mean Corpuscular HGB Conc 33.1 g/dL Normal 32.5-35.6 [facility] Comment on above: Order Comment: Reaso n for Exam Pain due to internal orthopedic prosthetic devices, implants Performed By: #### C BC, CRP, ESR, DDIMER ####[place] [id number] [facility] NRBC% 0.1 /100{WBC} Normal 0-0.5 [facility] Comment on above: Order Comment: Reaso n for Exam Pain due to internal orthopedic prosthetic devices, implants Performed By: #### C BC, CRP, ESR, DDIMER ####[place] [address] [place] [id number] [facility] D-Dimer High Sensitivityon 0 05-21-2023 D-Dimer High Sensitivity 213 ng/mL Normal 0-243 [facility] Comment on above: Order [...] coagulation studies. Please contact the laboratory at [phone] for redraw instructions. PERFORMED BY: [facility] [address] [place] [id number] PATHOLOGIST STRAP MACHINE OPERATOR [employer] ALAYNA CAPONE M.D. Performed By: #### C BC, CRP, ESR, DDIMER ####[place] [address] [place] [id number] [facility] Erythrocyte Sedimentation Ra kip 05-21-2023 ESR (Bld) [Velocity] 16 mm/h Normal 0-19 [facility] Comment on above: Order Comment: Reaso n for Exam Pain due to internal orthopedic prosthetic devices, implants Result Comment: PERF ORMED BY: [facility] [address] [place] [phone] PATHOLOGIST STRAP MACHINE OPERATOR [employer]OMAT[employer] ALAYNA CAPONE M.D. Performed By: #### C BC, CRP, ESR, DDIMER ####[facility] [place] [id number] [facility] Erythrocyte distribution wid th [Ratio] by Automated countOrdered By: Melinda Verduzco on 05-21-2023 Erythrocyte distribution width (RBC) [Ratio] 14.5 % Normal 12.0-14.8 [facility] Comment on above: Order Comment: Reaso n for Exam Pain due to internal orthopedic prosthetic devices, implants Performed By: #### C BC, CRP, ESR, DDIMER ####[place] [address] [place] [phone] [facility] Erythrocyte sedimentation ra te by Photometric methodOrdered By: Melinda Verduzco on 05-21-2023 ESR Photometric method (Bld) [Velocity] 16 mm/hr 0-19 [facility] Erythrocytes [#/volume] in B lood by Automated countOrdered By: Melinda Verduzco on 05-21-2023 RBC (Bld) [#/Vol] 4.68 10*6/uL Normal 3.90-5.60 [facility] Comment on above: Order Comment: Reaso n for Exam Pain due to internal orthopedic prosthetic devices, implants Performed By: #### C BC, CRP, ESR, DDIMER ####[place] [address] Fibrin D-dimer [Presence] in Platelet poor plasma by Latex agglutinationOrdered By: Melinda Verduzco on 05-21-2023 Fibrin D-dimer LA Ql (PPP) 213 ng/mL 0-243 [facility] Comment on above: The reference range for [...] coagulation studies. Please contact the laboratory at [phone] for redraw instructions. Hematocrit [Volume Fraction] of Blood by Automated countOrdered By: Melinda Verduzco on 05-21-2023 Hematocrit (Bld) [Volume fraction] 47.1 % Normal 38.8-50.0 [facility] Comment on above: Order Comment: Reaso n for Exam Pain due to internal orthopedic prosthetic devices, implants Performed By: #### C BC, CRP, ESR, DDIMER ####[address] [address] [facility] Hemoglobin [Mass/volume] in BloodOrdered By: Melinda Verduzco on 05-21-2023 Hemoglobin (Bld) [Mass/Vol] 15.6 g/dL Normal 13.0-17.0 [facility] Comment on above: Order Comment: Reaso n for Exam Pain due to internal orthopedic prosthetic devices, implants Performed By: #### C BC, CRP, ESR, DDIMER ####[place] [address] [place] [address] [facility] Leukocytes [#/volume] correc collins for nucleated erythrocytes in Blood by Automated counOrdered By: Melinda Verduzco on 05-21-2023 WBC corrected for nucl RBC Auto (Bld) [#/Vol] 15.1 10*3/uL 4.1-10.5 [facility] Leukocytes [#/volume] in Blo od by Automated countOrdered By: Melinda Verduzco on 05-21-2023 WBC (Bld) [#/Vol] 15.1 10*3/uL High 4.1-10.5 [facility] Comment on above: Order Comment: Reaso n for Exam Pain due to internal orthopedic prosthetic devices, implants Performed By: #### C BC, CRP, ESR, DDIMER ####[address] [address] [place] Lymphocytes [#/volume] in Bl ood by Automated countOrdered By: Melinda Verduzco on 05-21-2023 Lymphocytes (Bld) [#/Vol] 2.1 10*3/uL Normal 1.00-4.8 [facility] Comment on above: Order Comment: Reaso n for Exam Pain due to internal orthopedic prosthetic devices, implants Performed By: #### C BC, CRP, ESR, DDIMER ####[address] Lymphocytes/100 leukocytes i n Blood by Automated countOrdered By: Melinda Verduzco on 05-21-2023 Lymphocytes/100 WBC (Bld) 13.9 % Normal . [facility] Comment on above: Order Comment: Reaso n for Exam Pain due to internal orthopedic prosthetic devices, implants Performed By: #### C BC, CRP, ESR, DDIMER ####[address] MCH [Entitic mass] by Automa collins countOrdered By: Melinda Verduzco on 05-21-2023 MCH (RBC) [Entitic mass] 33.3 pg Normal 27.5-35.2 [facility] Comment on above: Order Comment: Reaso n for Exam Pain due to internal orthopedic prosthetic devices, implants Performed By: #### C BC, CRP, ESR, DDIMER ####[address] MCHC Auto (RBC) [Mass/Vol]Or dered By: Melinda Verduzco on 05-21-2023 MCHC (RBC) [Mass/Vol] 33.1 g/dL 32.5-35.6 [facility] MCV [Entitic volume] by Auto mated countOrdered By: Melinda Verduzco on 05-21-2023 MCV (RBC) [Entitic vol] 100.7 fL Normal 83.5-101 [facility] Comment on above: Order Comment: Reaso n for Exam Pain due to internal orthopedic prosthetic devices, implants Performed By: #### C BC, CRP, ESR, DDIMER ####[address] Neutrophils [#/volume] in Bl ood by Automated countOrdered By: Melinda Verduzco on 05-21-2023 Neutrophils (Bld) [#/Vol] 11.8 10*3/uL High 1.8-7.7 [facility] Comment on above: Order Comment: Reaso n for Exam Pain due to internal orthopedic prosthetic devices, implants Performed By: #### C BC, CRP, ESR, DDIMER ####[place] [address] [place] [id number] [facility] Nucleated erythrocytes [Pres ence] in Blood by Automated countOrdered By: Melinda Verduzco on 05-21-2023 Nucleated RBC Auto Ql (Bld) 0.1 /100{WBC} 0-0.5 [facility] Platelet mean volume [Entiti c volume] in Blood by Automated countOrdered By: Melinda Verduzco on 05-21-2023 Platelet mean volume (Bld) [Entitic vol] 8.7 fL Normal 6.6-10.1 [facility] Comment on above: Order Comment: Reaso n for Exam Pain due to internal orthopedic prosthetic devices, implants Performed By: #### C BC, CRP, ESR, DDIMER ####[place] [id number] [facility] Platelets [#/volume] in Bloo d by Automated countOrdered By: Melinda Verduzco on 05-21-2023 Platelets (Bld) [#/Vol] 228 10*3/uL Normal 150-450 [facility] Comment on above: Order Comment: Reaso n for Exam Pain due to internal orthopedic prosthetic devices, implants Performed By: #### C BC, CRP, ESR, DDIMER ####[place] [id number] [facility] XR knee LT 3V - NOT FOR ER U Florentino 05-21-2023 XR knee LT 3V - NOT FOR ER USE [facility] [address] [place] [address] [place] [address] XRay Report Signed Patient: Esme Steven MR#: [id number] : 1960 Acct:[id number] Age/Sex: 62 / M ADM Date: 05/21/23 Loc: [facility] Room: Type: [facility] Attending Dr: Sarai Mendez II, MD [...] PROCESS. Impression dictated by: Alex Castro Jr., DBarbaraOBabrara05/21/2023 3:12 PM Dictation Location: [place] [address] Transcribed By: [facility] 05/21/23 151 Dictated By: Alex Castro Jr, DO 05/21/231510 Signed By: 05/21/23 151 Normal [facility] XR hip RT min 2V(w/wo pelvis )*on 05-16-2023 XR hip RT min 2V(w/wo pelvis)* [facility] [address] [place] [address] [place] [address] XRay Report Signed Patient: Esme Steven MR#: [id number] : 1960 Acct:[id number] Age/Sex: 62 / M ADM Date: 05/16/23 Loc: [facility] Room: Type: [facility] Attending Dr: Sarai Mendez II, MD [...] Gisell Camilo M.D.05/16/2023 3:53 PM Dictation Location: [place] [address] Transcribed By: [facility] 05/16/231552 Dictated By: Gisell Camilo MD 05/16/23 153 Signed By: 05/16/23 155 Normal [facility] CBC AND AUTO DIFFon 04-18-19 ABSOLUTE BASOPHIL 0.1 X10E9/L Normal 0.0-0.2 [facility] Comment on above: Performed By: #### C MP, PINR, 00926-3, 80321-4, CBCA, 19047-4, 46097-2 #### [facility] ([id number]) [address] [place] [address] ABSOLUTE NEUTROPHIL 10.9 X10E9/L High 1.5-6.6 [facility] Comment on above: Performed By: #### C MP, PINR, 75538-5, 44408-5, CBCA, 48284-3, 46471-2 #### [facility] ([id number]) [address] [place] [address] Basophils/100 WBC (Bld) 0.4 % Normal [facility] Comment on above: Performed By: #### C MP, PINR, 82632-1, 51185-4, CBCA, 42660-1, 72424-4 #### [facility] ([id number]) [address] [place] [address] Eosinophils (Bld) [#/Vol] 0.0 10*3/uL Normal 0.0-0.4 [facility] Comment on above: Performed By: #### C MP, PINR, 20692-1, 68453-5, CBCA, 30135-4, 69867-7 #### [facility] ([id number]) [address] [place] [address] Eosinophils/100 WBC (Bld) 0.3 % Normal [facility] Comment on above: Performed By: #### C MP, PINR, 95102-9, 36785-0, CBCA, 92804-0, 34143-7 #### [facility] ([id number]) [address] [place] [address] Erythrocyte distribution width (RBC) [Ratio] 14.2 % Normal 11.5-15.0 [facility] Comment on above: Performed By: #### C MP, PINR, 11995-9, 67852-0, CBCA, 08218-3, 11176-2 #### [facility] ([id number]) [address] [place] [address] Hematocrit (Bld) [Volume fraction] 49.6 % High 39-49 [facility] Comment on above: Performed By: #### C MP, PINR, 10441-3, 44084-4, CBCA, 88945-6, 85327-0 #### [facility] ([id number]) [address] [place] [address] Hemoglobin (Bld) [Mass/Vol] 16.7 g/dL Normal 13.0-17.0 [facility] Comment on above: Performed By: #### C MP, PINR, 57564-5, 99441-2, CBCA, 47536-5, 21105-8 #### [facility] ([id number]) [address] [place] [address] Lymphocytes (Bld) [#/Vol] 1.6 10*3/uL Normal 1.0-3.5 [facility] Comment on above: Performed By: #### C MP, PINR, 96822-1, 60176-5, CBCA, 89136-1, 89008-1 #### [facility] ([id number]) [address] [place] [address] Lymphocytes/100 WBC (Bld) 11.9 % Normal [facility] Comment on above: Performed By: #### C MP, PINR, 20455-8, 38244-9, CBCA, 85279-1, 91693-5 #### [facility] ([id number]) [address] [place] [address] MCH (RBC) [Entitic mass] 34.1 pg High 27-34 [facility] Comment on above: Performed By: #### C MP, PINR, 07941-1, 61462-3, CBCA, 80172-8, 30296-3 #### [facility] ([id number]) [address] [place] [address] MCHC (RBC) [Mass/Vol] 33.7 g/dL Normal 32-36 [facility] Comment on above: Performed By: #### C MP, PINR, 32279-4, 57257-7, CBCA, 06106-0, 02080-0 #### [facility] ([id number]) [address] [place] [address] MCV (RBC) [Entitic vol] 101 fL High 80-100 [facility] Comment on above: Performed By: #### C MP, PINR, 02349-6, , CBCA, 67335-5, 28896-0 #### [facility] ([id number]) [address] [place] [address] Monocytes (Bld) [#/Vol] 0.5 10*3/uL Normal 0-0.9 [facility] Comment on above: Performed By: #### C MP, PINR, 53338-9, 79373-0, CBCA, 23333-0, 61745-1 #### [facility] ([id number]) [address] [place] [address] Monocytes/100 WBC (Bld) 3.7 % Normal [facility] Comment on above: Performed By: #### C MP, PINR, 83930-0, 24905-1, CBCA, 13842-3, 85299-8 #### [facility] ([id number]) [address] [place] [address] Neutrophils/100 WBC (Bld) 83.7 % Normal [facility] Comment on above: Performed By: #### C MP, PINR, 13126-8, 69463-5, CBCA, 32349-1, 38227-2 #### [facility] ([id number]) [address] [place] [address] Platelet mean volume (Bld) [Entitic vol] 8.5 fL Normal 7-12 [facility] Comment on above: Performed By: #### C MP, PINR, 98293-7, 27384-6, CBCA, 66059-5, 73934-5 #### [facility] ([id number]) [address] [place] [address] Platelets (Bld) [#/Vol] 264 10*3/uL Normal 150-450 [facility] Comment on above: Performed By: #### C MP, PINR, 78063-0, 42895-6, CBCA, 31178-5, 06100-9 #### [facility] ([id number]) [address] [place] [address] RBC COUNT 4.89 X10E12/L Normal 4.10-5.70 [facility] Comment on above: Performed By: #### C MP, PINR, 31227-4, 90549-3, CBCA, 17052-9, 62693-2 #### [facility] ([id number]) [address] [place] [address] WBC (Bld) [#/Vol] 13.0 10*3/uL High 4.0-11.0 [facility] Comment on above: Performed By: #### C MP, PINR, 06182-3, 63875-2, CBCA, 93432-0, 67696-6 #### [facility] ([id number]) [address] [place] [address] COMPREHENSIVE METABOLIC PANE Ojse 04-18-2023 Albumin [Mass/Vol] 4.4 g/dL Normal 3.2-5.3 [facility] Comment on above: Performed By: #### C MP, PINR, 38344-3, 75512-1, CBCA, 40342-5, 19816-2 #### [facility] ([id number]) [address] [place] [address] [id number] ALP [Catalytic activity/Vol] 69 U/L Normal 39-130 [facility] Comment on above: Performed By: #### C MP, PINR, 60937-3, 52334-3, CBCA, 00399-8, 18409-7 #### [facility] ([id number]) [address] [place] [address] [id number] ALT [Catalytic activity/Vol] 31 U/L Normal 0-40 [facility] Comment on above: Performed By: #### C MP, PINR, 85469-9, 04004-2, CBCA, 87282-3, 63086-8 #### [facility] ([id number]) [address] [place] [address] [id number] Anion gap [Moles/Vol] 9 mmol/L Normal 5-15 [facility] Comment on above: Performed By: #### C MP, PINR, 91870-9, 83709-8, CBCA, 21749-1, 00766-4 #### [facility] ([id number]) [address] [place] [address] 27394 AST [Catalytic activity/Vol] 26 U/L Normal 0-41 [facility] Comment on above: Performed By: #### C MP, PINR, 98832-1, 54238-2, CBCA, 81927-3, 26678-3 #### [facility] ([id number]) [address] [place] [address] 37580 Bilirubin [Mass/Vol] 0.8 mg/dL Normal 0.3-1.2 [facility] Comment on above: Performed By: #### C MP, PINR, 92512-4, 68151-8, CBCA, 44983-4, 30546-6 #### [facility] ([id number]) [address] [place] [address] 87317 Calcium [Mass/Vol] 9.6 mg/dL Normal 8.5-10.5 [facility] Comment on above: Performed By: #### C MP, PINR, 23733-0, 30801-0, CBCA, 50113-0, 37024-7 #### [facility] ([id number]) [address] [place] [address] 66949 Chloride [Moles/Vol] 99 mmol/L Normal 98-109 [facility] Comment on above: Performed By: #### C MP, PINR, 82755-7, 74747-5, CBCA, 90389-6, 95825-4 #### [facility] ([id number]) [address] [place] [address] 39063 CO2 [Moles/Vol] 24 mmol/L Normal 22-32 [facility] Comment on above: Performed By: #### C MP, PINR, 44360-2, 51487-8, CBCA, 98413-8, 57307-6 #### [facility] ([id number]) [address] [place] [address] 53785 Creatinine [Mass/Vol] 1.26 mg/dL High 0.70-1.20 [facility] Comment on above: Result Comment: METH OD TRACEABLE TO IDMS STANDARD Performed By: #### C MP, PINR, 83566-4, 65506-6, CBCA, 22442-8, 90899-4 #### [facility] ([id number]) [address] [place] [address] 03151 GFR/1.73 sq M.predicted among non-blacks MDRD (S/P/Bld) [Vol rate/Area] 64 mL/min/{1.73_m2} Normal >59 [facility] Comment on above: Result Comment: Reported eGFR is based on the CKD-EPI 2020 equation that does not use a race coefficient. Performed By: #### C MP, PINR, 27931-9, 54103-1, CBCA, 09535-8, 09900-3 #### [facility] ([id number]) [address] [place] [address] 36994 Glucose [Mass/Vol] 196 mg/dL High 65-99 [facility] Comment on above: Performed By: #### C MP, PINR, 53077-5, 97028-3, CBCA, 45163-6, 51852-7 #### [facility] ([id number]) [address] [place] [address] 35021 Potassium [Moles/Vol] 3.8 mmol/L Normal 3.5-5.0 [facility] Comment on above: Performed By: #### C MP, PINR, 70558-7, 57260-3, CBCA, 65573-3, 74256-5 #### [facility] ([id number]) [address] [place] [address] 78103 Protein [Mass/Vol] 7.7 g/dL Normal 6.0-8.0 [facility] Comment on above: Performed By: #### C MP, PINR, 17275-2, 00044-0, CBCA, 87521-8, 94544-6 #### [facility] ([id number]) [address] [place] [address] 79650 Sodium [Moles/Vol] 132 mmol/L Low 134-146 [facility] Comment on above: Performed By: #### C MP, PINR, 49239-3, 17242-3, CBCA, 81296-2, 75769-0 #### [facility] ([id number]) [address] [place] [address] 00767 Urea nitrogen [Mass/Vol] 40 mg/dL High 5-27 [facility] Comment on above: Performed By: #### C MP, PINR, 23698-2, 61766-5, CBCA, 30963-0, 72620-0 #### [facility] ([id number]) [address] [place] [address] 29892 MAGNESIUMon 04-18-2023 Magnesium [Mass/Vol] 1.7 mg/dL Low 1.8-2.6 [facility] Comment on above: Performed By: #### C MP, PINR, 56437-4, 92826-1, CBCA, 61164-5, 03923-7 #### [facility] ([id number]) [address] [place] [address] 47459 Natriuretic peptide B [Mass/ Vol]on 04-18-2023 Natriuretic peptide B (Bld) [Mass/Vol] 206 pg/mL High <100.0 [facility] Comment on above: Performed By: #### C MP, PINR, 43349-5, 45798-4, CBCA, 60389-9, 78511-4 #### [facility] ([id number]) [address] [place] [address] 24994 PROTIME AND INRon 04-18-2023 INR Coag (PPP) [Relative time] 1.1 {INR} Normal 0.8-1.1 [facility] Comment on above: Performed By: #### C MP, PINR, 49728-2, 80844-1, CBCA, 51247-2, 98797-0 #### [facility] ([id number]) [address] [place] [address] 93385 PT Coag (PPP) [Time] 12.3 s Normal 9.8-13.2 [facility] Comment on above: Result Comment: NEW REFERENCE RANGE Performed By: #### C MP, PINR, 97476-7, 93473-5, CBCA, 67883-4, 08368-8 #### [facility] ([id number]) [address] [place] [address] 05644 TROPONIN Ion 04-18-2023 Troponin I.cardiac [Mass/Vol] 0.01 ng/mL Normal 0.00-0.04 [facility] Comment on above: Performed By: #### C MP, PINR, 46871-8, 27068-0, CBCA, 66235-5, 74449-0 #### [facility] ([id number]) [address] [place] [address] 17093 aPTT Coag (PPP) [Time]on aPTT Coag (Bld) [Time] 28 s Normal 26-37 [facility] Comment on above: Result Comment: NEW REFERENCE RANGE Performed By: #### C MP, PINR, 90610-0, 01044-5, CBCA, 62596-2, 24433-8 #### [facility] ([id number]) [address] [place] [address] 67208 XR hip RT min 2V(w/wo pelvis )*on 03-29-2023 XR hip RT min 2V(w/wo pelvis)* [facility] Main [address] [address] XRay Report Signed Patient: Esme Steven MR#: [id number] : 1960 Acct:[id number] Age/Sex: 62 / M ADM Date: 03/29/23 Loc: [facility] Room: Type: [facility] Attending Dr: Sarai Mendez II, MD [...] Rubio Vazquez M.D.03/29/2023 4:28 PM Dictation Location: [facility] [address] Transcribed By: GWEN 03/29/231627 Dictated By: Rubio Vazquez II, MD 03/29/231626 Signed By: 03/29/231627 Normal [facility] Tuyet 03-07-2023 VICKIE Telephone (RADHA) ----- ESME STEVEN ([id number]) 1960 M Date Time Provider Department 03/07/23 [...] Ruben Monterroso MA 03/08/2023 11:14 AM Signed LMTCuRben Renae MA 03/12/2023 1:34 PM Signed LMTCB [...] [R79.82] Order(s):SED RATE WESTERGREN [SQWSR] Order #: [id number] FUTURE C-REACTIVE PROTEIN (CRP) [SQCRP] Order #: [id number] FUTURE Prescriptions as of 03/13/2023 - celecoxib [...] Idiopathic chronic gout of multiple sites witho*01/05/2023 detention current use of 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 [Z79*01/05/2023 CHENCHO positive [R76.8] 01/05/2023 Bilateral hand swelling [M79.89] 01/05/2023 Chronic pain of both knees [M25.561, M25.562, G*03/05/2023 Medications Discontinued During This Encounter Prescriptions - colchicine 0.6 mg ORAL tablet (Discontinued) Take one(1) tablet daily. Encounter Status:Closed by KERRY ANDERSEN on 03/07/23 [facility] CNOVon 03-05-2023 CNOV Office Visit (RADHA ) ----- YAMILEXESME URBANO ([id number]) 1960 M Date Time Provider Department 03/05/23 2:00 PM HELADIO PNIEDA During your visit today, we recorded the [...] touching your toes, sit-ups, using row machine care home pain recommendations per primary care provider/pain clinic [...] last of (more content not included)... Normal [facility] CRP SerPl-kendrickon 03-05-2023 CRP [Mass/Vol] mg/L Normal <0.9 [facility] Comment on above: Order Comment: Speci men Type: BLOOD SPECIMENOrdering Facility: [facility] Address: [address] [place], [place] [address] Performed By: #### 1 988-5 ####[facility]CL[facility] [id number] [facility] [address] [place] ESR Westergren method (Bld) [Velocity]on 03-05-2023 ESR (Bld) [Velocity] 9 mm/h Normal 0-15 [facility] Comment on above: Order Comment: Speci men Type: BLOOD SPECIMENOrdering Facility: [facility] Address: [address] [place] [address] Performed By: #### 4 537-7 ####[facility]CL[facility] [id number] [address] [place] Jose 02-13-2023 L ----- Specimen: [id number] Received: 02/13/23 Status: ESTEFANIA Tatiana Num: [id number] Spec Type: Surgical Subm Dr: Sarai Mendez MD Tissues: A Femoral Head - Other than Fracture (RT HIP) Procedures: HE/2, Gross/Micro L3, Decalcification Age/ Patient Sex Location Account Attending Physician Esme Steven 62/M [place] [id number] Sarai Mendez MD SPEC NUM: [id number] RECD: 02/13/23 STATUS: ESTEFANIA MINA NUM: [id number] DEUCE: 02/13/[address] [facility] [address]: Sarai Mendez MD ENTERED: 02/13/23 DEJAH [...] Thinning of the articular cartilage is identified. Passenger Conductor are submitted following decalcification in two cassettes labeled A1-A2. Specimen: [id number] Received: 02/13/23 Status: ESTEFANIA Mina Num: [id number] Spec Type: Surgical Subm Dr: Sarai Mendez MD Tissues: A Femoral Head - Other than Fracture (RT HIP) Procedures: HE/2, Gross/Micro L3, Decalcification Patient: Esme Steven [id number] (Continued) Specimen: [id number] Received: 02/13/23 (Continued) Signed (signature on file) Sean Hubbard MD 02/14/23 1701 Specimen: [id number] Received: 02/13/23 Status: ESTEFANIA Mina Num: [id number] Spec Type: Surgical Subm Dr: Sarai Mendez MD Tissues: A Femoral Head - Other than Fracture (RT HIP) Procedures: HE/2, Gross/Micro L3, Decalcification Patient: Esme Steven [id number] (Continued) Specimen: [id number] Received: 02/13/23 (Continued) Microscopic Description Two H E slides reviewed. The microscopic examination confirms the diagnosis. CPT Codes 58356, 70273 Specimen: [id number] Received: 02/13/23 Status: ESTEFANIA Mina Num: [id number] Spec Type: Surgical Subm Dr: Sarai Mendez MD Tissues: A Femoral Head - Other than Fracture (RT HIP) Procedures: HE/2, Gross/Micro L3, Decalcification Patient: Esme Steven [id number] (Continued) Signed (signature on file) Sean Hubbard MD 02/14/23 1701 Normal [facility] XR hip RT 1Von 02-13-2023 XR hip RT 1V [facility] [place] [address] XRay Report Signed Patient: sEme Steven MR#: [id number] : 1960 Acct:[id number] Age/Sex: 62 / M ADM Date: 02/13/23 Loc: [place] Room: Type: [facility] Attending Dr: Sarai Mendez II, MD Copies to: Sarai Mendez MD Ordering Provider: Sarai Mendez MD Date of Service: 02/13/23 XR/XR hip RT 1V: . ([id number]) XR/XR low pelvis w/RT x-table hip: Total [...] Gisell Camilo M.D.02/13/2023 10:54 AM Dictation Location: [place] [address] Transcribed By: [facility] 02/13/23 1054 Dictated By: Gisell Camilo MD 02/13/23 1050 Signed By: 02/13/23 1054 Normal [facility] Automated basophil %Ordered By: Sarai Mendez on 01-29-2023 Basophils/100 WBC (Bld) 0.6 % Normal . [facility] Comment on above: Performed By: #### C BC #### [facility] [address] [place] [address] Automated basophil countOrde red By: Sarai Mendez on 01-29-2023 Basophils (Bld) [#/Vol] 0.1 10*3/uL Normal 0.0-0.2 [facility] Comment on above: Result Comment: PERF ORMED BY: [place] [address] PATHOLOGIST STRAP MACHINE OPERATOR AUTOMATIC ALAYNA CAPONE M.D. Performed By: #### C BC #### [facility] [address] [place] [address] Automated blood monocyte cou ntOrdered By: Sarai Mendez on 01-29-2023 Monocytes (Bld) [#/Vol] 0.6 10*3/uL Normal 0.0-0.8 [facility] Comment on above: Performed By: #### C BC #### [address] Automated eosinophil %Ordere d By: Sarai Mendez on 01-29-2023 Eosinophils/100 WBC (Bld) 0.4 % Normal . [facility] Comment on above: Performed By: #### C BC #### [address] Automated eosinophil countOr dered By: Sarai Mendez on 01-29-2023 Eosinophils (Bld) [#/Vol] 0.0 10*3/uL Normal 0.0-0.45 [facility] Comment on above: Performed By: #### C BC #### [address] Automated monocyte %Ordered By: Sarai Mendez on 01-29-2023 Monocytes/100 WBC (Bld) 5.3 % Normal . [facility] Comment on above: Performed By: #### C BC #### [address] Automated neutrophil %Ordere d By: Sarai Mendez on 01-29-2023 Neutrophils/100 WBC (Bld) 83.2 % Normal . [facility] Comment on above: Performed By: #### C BC #### [address] Complete Blood Count Auto Di ffon 01-29-2023 Mean Corpuscular HGB Conc 33.8 g/dL Normal 32.5-35.6 [facility] Comment on above: Performed By: #### C BC #### [address] NRBC% 0.1 /100{WBC} Normal 0-0.5 [facility] Comment on above: Performed By: #### C BC #### [address] Erythrocyte distribution wid th [Ratio] by Automated countOrdered By: Sarai Mendez on 01-29-2023 Erythrocyte distribution width (RBC) [Ratio] 13.8 % Normal 12.0-14.8 [facility] Comment on above: Performed By: #### C BC #### [address] Erythrocytes [#/volume] in B lood by Automated countOrdered By: Sarai Mendez on 01-29-2023 RBC (Bld) [#/Vol] 3.96 10*6/uL Normal 3.90-5.60 [facility] Comment on above: Performed By: #### C BC #### [address] Hematocrit [Volume Fraction] of Blood by Automated countOrdered By: Sarai Mendez on 01-29-2023 Hematocrit (Bld) [Volume fraction] 41.9 % Normal 38.8-50.0 [facility] Comment on above: Performed By: #### C BC #### [address] Hemoglobin [Mass/volume] in BloodOrdered By: Sarai Mendez on 01-29-2023 Hemoglobin (Bld) [Mass/Vol] 14.2 g/dL Normal 13.0-17.0 [facility] Comment on above: Performed By: #### C BC #### [address] Leukocytes [#/volume] correc collins for nucleated erythrocytes in Blood by Automated counOrdered By: Sarai Mendez on 01-29-2023 WBC corrected for nucl RBC Auto (Bld) [#/Vol] 11.9 10*3/uL 4.1-10.5 [facility] Leukocytes [#/volume] in Blo od by Automated countOrdered By: Sarai Mendez on 01-29-2023 WBC (Bld) [#/Vol] 11.9 10*3/uL High 4.1-10.5 [facility] Comment on above: Performed By: #### C BC #### [place] [address] [place] Lymphocytes [#/volume] in Bl ood by Automated countOrdered By: Sarai Mendez on 01-29-2023 Lymphocytes (Bld) [#/Vol] 1.3 10*3/uL Normal 1.00-4.8 [facility] Comment on above: Performed By: #### C BC #### [address] Lymphocytes/100 leukocytes i n Blood by Automated countOrdered By: Sarai Mendez on 01-29-2023 Lymphocytes/100 WBC (Bld) 10.5 % Normal . [facility] Comment on above: Performed By: #### C BC #### [address] MCH [Entitic mass] by Automa collins countOrdered By: Sarai Mendez on 01-29-2023 MCH (RBC) [Entitic mass] 35.8 pg High 27.5-35.2 [facility] Comment on above: Performed By: #### C BC #### [address] MCHC Auto (RBC) [Mass/Vol]Or dered By: Sarai Mendez on 01-29-2023 MCHC (RBC) [Mass/Vol] 33.8 g/dL 32.5-35.6 [facility] MCV [Entitic volume] by Auto mated countOrdered By: Sarai Mendez on 01-29-2023 MCV (RBC) [Entitic vol] 105.8 fL High 83.5-101 [facility] Comment on above: Performed By: #### C BC #### [place] [address] [place] Neutrophils [#/volume] in Bl ood by Automated countOrdered By: Sarai Mendez on 01-29-2023 Neutrophils (Bld) [#/Vol] 9.9 10*3/uL High 1.8-7.7 [facility] Comment on above: Performed By: #### C BC #### [address] Nucleated erythrocytes [Pres ence] in Blood by Automated countOrdered By: Sarai Mendez on 01-29-2023 Nucleated RBC Auto Ql (Bld) 0.1 /100{WBC} 0-0.5 [facility] Platelet mean volume [Entiti c volume] in Blood by Automated countOrdered By: Sarai Mendez on 01-29-2023 Platelet mean volume (Bld) [Entitic vol] 8.4 fL Normal 6.6-10.1 [facility] Comment on above: Performed By: #### C BC #### [address] Platelets [#/volume] in Bloo d by Automated countOrdered By: Sarai Mendez on 01-29-2023 Platelets (Bld) [#/Vol] 187 10*3/uL Normal 150-450 [facility] Comment on above: Performed By: #### C BC #### [address] Automated urine color determ inationOrdered By: Sarai Mendez on 01-26-2023 Color (U) Yellow Normal Yellow [facility] Comment on above: Order Comment: Name Collection Type:: Clean-Voided Midstream Performed By: #### U A #### [address] Basic Metabolic Panelon 01-08 GFR/1.73 sq M.predicted MDRD (S/P/Bld) [Vol rate/Area] mL/min/{1.73_m2} Normal [facility] Comment on above: Performed By: #### A 1C WTH eA, HGB, [id number], ALB #### [address] Bilirubin Test strip Ql (U)O rdered By: Sarai Mendez on 01-26-2023 Bilirubin Ql (U) Negative Negative [facility] Calcium [Mass/volume] in Ser um or PlasmaOrdered By: Sarai Mendez on 01-26-2023 Calcium [Mass/Vol] 9.3 mg/dL Normal 8.6-10.3 [facility] Comment on above: Result Comment: PERF ORMED BY: [place] [address] PATHOLOGIST STRAP MACHINE OPERATOR AUTOMATIC ALAYNA CAPONE M.D. Performed By: #### A 1C WTH eA, HGB, [id number], ALB #### [facility] [address] [place] [id number] [place] Carbon dioxide, total [Moles /volume] in Serum or PlasmaOrdered By: Sarai Mendez on 01-26-2023 CO2 [Moles/Vol] 28.7 mmol/L Normal 21.0-31.0 [facility] Comment on above: Performed By: #### A 1C WTH eA, HGB, [id number], ALB #### [facility] [address] [place] [id number] [place] Chloride [Moles/volume] in S ursula or PlasmaOrdered By: Sarai Mendez on 01-26-2023 Chloride [Moles/Vol] 101 mmol/L Normal 98-107 [facility] Comment on above: Performed By: #### A 1C WTH eA, HGB, [id number], ALB #### [facility] [address] [place] [id number] [place] Creatinine [Mass/volume] in Serum or PlasmaOrdered By: Sarai Mendez on 01-26-2023 Creatinine [Mass/Vol] 1.01 mg/dL Normal 0.70-1.30 [facility] Comment on above: Performed By: #### A 1C WTH eA, HGB, [id number], ALB #### [place] [id number] [place] Fructosamineon 01-26-2023 Fructosamine 192 umol/L Normal 0-285 [facility] Comment on above: Result Comment: Publ ished reference interval for apparently healthy subjects between age 20 and 60 is 205 - 285 umol/L and in a poorly controlled diabetic population is 228 - 563 umol/L with a mean of 396 umol/L. Performed at: - [facility] [id number] Forestry Worker: Lucas Cooper PhD, Phone: [phone] PERFORMED BY: [place] [id number] PATHOLOGIST STRAP MACHINE OPERATOR AUTOMATIC ALAYNA CAPONE M.D. Performed By: #### A 1C [facility] eA, HGB, [id number], ALB #### [facility] [address] [place] [id number] [facility] Fructosamine [Moles/volume] in Serum or PlasmaOrdered By: Sarai Mendez on 01-26-2023 Fructosamine [Moles/Vol] 192 umol/L 0-285 [facility] Comment on above: Published reference interval for apparently healthysubjects between age 20 and 60 is 205 - 285 umol/L and in apoorly controlled diabetic population is 228 - 563 umol/Lwith a mean of 396 umol/L.Performed at: [facility] [id number] Director: Lucas Cooper PhD, Phone: [phone] Glucose [Mass/volume] in Ser um or PlasmaOrdered By: Sarai Mendez on 01-26-2023 Glucose [Mass/Vol] 126 mg/dL High 70-100 [facility] Comment on above: ADA recommended refe rence rangeRandom Glucose Reference Range is dependent on time and content of last meal. Glucose of more than 200 mg/dL in a nonstressed, ambulatory subject supports the diagnosis of Diabetes Mellitus. Result Comment: [place] om Glucose Reference Range is dependent on time and content of last meal. Glucose of more than 200 mg/dL in a nonstressed, ambulatory subject supports the diagnosis of Diabetes Mellitus. ADA recommended reference range Performed By: #### A 1C [facility] eA, HGB, [id number], ALB #### [facility] [address] [place] [address] [place] Ketones Auto test strip (U) [Mass/Vol]Ordered By: Sarai Mendez on 01-26-2023 Ketones (U) [Mass/Vol] Negative Negative [facility] Nitrite Test strip Ql (U)Ord ered By: Sarai Mendez on 01-26-2023 Nitrite Ql (U) Negative Negative [facility] No Panel InformationOrdered By: Sarai Mendez on 01-26-2023 Estimated GFR (CKD-EPI) > 60.0 mL/Min [facility] Creatinine Clearance (Chem N/A [facility] PST Type and Screenon 2022 ABO and Rh group Nom (Bld) Blood group A Rh(D) positive Normal [facility] Comment on above: Order Comment: Reaso n for Exam Primary osteoarthritis 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;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 Potassium [Moles/volume] in Serum or PlasmaOrdered By: Sarai Mendez on 01-26-2023 Potassium [Moles/Vol] 4.2 mmol/L Normal 3.5-5.1 [facility] Comment on above: Performed By: #### A 1C WT eA, HGB, [id number], ALB #### [address] Protein Auto test strip (U) [Mass/Vol]Ordered By: Sraai Mendez on 01-26-2023 Protein (U) [Mass/Vol] Negative Negative [facility] Serum or plasma anion gap de terminationOrdered By: Sarai Mendez on 01-26-2023 Anion gap [Moles/Vol] 10.5 mmol/L Normal 6.0-15.0 [facility] Comment on above: Performed By: #### A 1C WT eA, HGB, [id number], ALB #### [place] [address] [place] Sodium [Moles/volume] in Ser um or PlasmaOrdered By: Sarai Mendez on 01-26-2023 Sodium [Moles/Vol] 136 mmol/L Normal 136-145 [facility] Comment on above: Performed By: #### A 1C WTH eA, HGB, [id number], ALB #### [place] [address] [place] Specific gravity Auto test s trip (U) [Rel density]Ordered By: Sarai Mendez on 01-26-2023 Specific gravity (U) [Rel density] 1.019 1.001-1.03 0 [facility] Urea nitrogen [Mass/volume] in Serum or PlasmaOrdered By: Sarai Mendez on 01-26-2023 Urea nitrogen [Mass/Vol] 21 mg/dL Normal 10-31 [facility] Comment on above: Performed By: #### A 1C WTH eA, HGB, [id number], ALB #### [facility] [address] [place] [address] [place] Urinalysison 01-26-2023 Appearance (U) Clear Normal Clear [facility] Comment on above: Order Comment: Name Collection Type:: Clean-Voided Midstream Performed By: #### U A #### [place] [address] [place] Bilirubin,Urine Negative Normal Negative [facility] Comment on above: Order Comment: Name Collection Type:: Clean-Voided Midstream Performed By: #### U A #### [place] [address] [place] Glucose Ql (U) Normal Normal Normal [facility] Comment on above: Order Comment: Name Collection Type:: Clean-Voided Midstream Performed By: #### U A #### [address] Ketones Ql (U) Negative Normal Negative [facility] Comment on above: Order Comment: Name Collection Type:: Clean-Voided Midstream Performed By: #### U A #### [place] [address] [place] Leukocyte esterase Test strip Ql (U) Negative Normal Negative [facility] Comment on above: Order Comment: Name Collection Type:: Clean-Voided Midstream Performed By: #### U A #### [place] [address] [place] Nitrite,Urine Negative Normal Negative [facility] Comment on above: Order Comment: Name Collection Type:: Clean-Voided Midstream Performed By: #### U A #### [place] [address] [place] Occult Blood,Urine Negative Normal Negative [facility] Comment on above: Order Comment: Name Collection Type:: Clean-Voided Midstream Result Comment: PERF ORMED BY: [place] [address] PATHOLOGIST STRAP MACHINE OPERATOR AUTOMATIC ALAYNA CAPONE M.D. Performed By: #### U A #### [facility] [address] [place] [address] [place] Protein,Urine Negative Normal Negative [facility] Comment on above: Order Comment: Name Collection Type:: Clean-Voided Midstream Performed By: #### U A #### [facility] [address] [place] [address] Specificy [place],Urine 1.019 Normal 1.001-1.03 0 [facility] Comment on above: Order Comment: Name Collection Type:: Clean-Voided Midstream Performed By: #### U A #### [address] Urobilinogen,Urine Normal Normal Normal [facility] [facility] Comment on above: Order Comment: Name Collection Type:: Clean-Voided Midstream Performed By: #### U A #### [facility] [address] [place] [address] Urine clarity by refractomet ry automatedOrdered By: Sarai Mendez on 01-26-2023 Clarity Refractometry automated (U) Clear Clear [facility] Urine glucose measurement by automated test strip (mass/volume)Ordered By: Sarai Mendez on 01-26-2023 Glucose Auto test strip (U) [Mass/Vol] Normal mg/dL Normal [facility] Urine hemoglobin detection b y automated test stripOrdered By: Sarai Mendez on 01-26-2023 Hemoglobin Auto test strip Ql (U) Negative Negative [facility] Urine leukocyte esterase det ection by automated test stripOrdered By: Sarai Mendez on 01-26-2023 Leukocyte esterase Auto test strip Ql (U) Negative Negative [facility] Urine pH measurement by auto mated test stripOrdered By: Sarai Mnedez on 01-26-2023 pH (U) 7.0 [pH] Normal 5.0-9.0 [facility] Comment on above: Order Comment: Name Collection Type:: Clean-Voided Midstream Performed By: #### U A #### [facility] [address] Urobilinogen Auto test strip (U) [Mass/Vol]Ordered By: Sarai Mendez on 01-26-2023 Urobilinogen (U) [Mass/Vol] Normal mg/dL Normal [facility] CNPNon 01-10-2023 CNPN Telephone (RADHA) ----- ESME STEVEN ([id number]) 1960 M Date Time Provider Department 01/10/23 [...] fatigue, may start over the counter vitamin [id number] daily by mouth or notify office if [...] [E53.8] Order(s):SED RATE WESTERGREN [SQWSR] Order #: [id number] FUTURE C-REACTIVE PROTEIN (CRP) [SQCRP] Order #: [id number] FUTURE VITAMIN D 25 HYDROXY [SQVITD] Order #: [id number] FUTURE VITAMIN B12 BLOOD [SQB12] Order #: [id number] FUTURE Prescriptions as of 01/11/2023 - albuterol [...] Idiopathic chronic gout of multiple sites 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 [Z79*01/05/2023 CHENCHO positive [R76.8] 01/05/2023 Bilateral hand swelling [M79.89] 01/05/2023 Encounter Status:Closed by RUBEN MONTERROSO on 01/11/23 Normal [facility] C-REACTIVE PROTEIN (CRP)on 0 01-06-2023 CRP [Mass/Vol] <0.9 mg/dL [facility] CK CREATINE KINASEon 023 CK [Catalytic activity/Vol] 35 U/L Low 51 - 298 U/L [facility] Comprehensive metabolic 2000 panelon 01-06-2023 Albumin [Mass/Vol] 4.9 g/dL 3.9 - 4.9 g/dL [facility] ALP [Catalytic activity/Vol] 57 U/L 38 - 113 U/L [facility] ALT [Catalytic activity/Vol] 27 U/L 10 - 54 U/L [facility] Anion gap [Moles/Vol] 15 mmol/L 9 - 18 mmol/L [facility] AST [Catalytic activity/Vol] 16 U/L 14 - 40 U/L [facility] Bilirubin [Mass/Vol] 0.7 mg/dL 0.2 - 1 .3 mg/dL [facility] Calcium [Mass/Vol] 10.3 mg/dL High 8.5 - 10. 2 mg/dL [facility] Chloride [Moles/Vol] 98 mmol/L 97 - 10 5 mmol/L [facility] CO2 [Moles/Vol] 24 mmol/L 22 - 30 mmol/L [facility] Creatinine [Mass/Vol] 0.98 mg/dL 0.73 - 1.22 mg/dL [facility] Estimated Glomerular Filtration Rate 87 mL/min/1.73m >=60 mL/min/1.7 3m [facility] Glucose [Mass/Vol] 120 mg/dL High 74 - 99 mg/dL [facility] Potassium [Moles/Vol] 4.3 mmol/L 3.7 - 5.1 mmol/L [facility] Protein [Mass/Vol] 7.1 g/dL 6.3 - 8.0 g/dL [facility] Sodium [Moles/Vol] 137 mmol/L 136 - 144 mmol/L [facility] Urea nitrogen [Mass/Vol] 20 mg/dL 9 - 24 mg/dL [facility] RHEUMATOID FACTOR BLon 01-06 Rheumatoid factor Qn <16 IU/mL [facility] URIC ACID BLOODon 01-06-2023 Urate [Mass/Vol] 6.1 mg/dL 4.0 - 8.1 mg/dL [facility] VITAMIN B12 BLOODon 01-07-20 Cobalamin (Vitamin B12) [Mass/Vol] 343 pg/mL 232 - 1,245 pg/mL [facility] 25(OH)D3 SerPl-mCncon 2022 25-hydroxyvitamin D3 [Mass/Vol] 29.6 ng/mL Low 31.0-80.0 [facility] Comment on above: Order Comment: Speci men Type: BLOOD SPECIMENOrdering Facility: [facility] Address: [address] [place] [phone] Result Comment: Clas sification of 25 [place] Vitamin D status: Deficiency/Insufficiency: < or = 30 ng/ml. Sufficiency/Optimal Levels: 31-80 ng/mL Toxicity: > 100 ng/mL. Test performed by chemiluminescent immunoassay. Performed By: #### 1 989-3 ####[facility] [id number] [place] [address] [place]EN[place] BY IFA WITH REFLEXon Nuclear Ab Ql (S) Negative Normal Negative [facility] Comment on above: Order Comment: Speci men Type: BLOOD SPECIMENOrdering Facility: [facility] Address: [address] [place] [address] Result Comment: Anti -nuclear antibody test is used as an aid in diagnosis of systemic autoimmune diseases. Where positive and clinically warranted, follow-up using disease-specific testing is recommended. Low positive titers are not uncommon with advanced age, certain chronic infections, and malignancies among others. Test methodology: Indirect fluorescence immunoassay (IFA) using HEp-2 cells. Performed By: #### A NAIFR ####[facility] [id number] [address] Aldolase SerPl-cCncon 2022 Aldolase [Catalytic activity/Vol] 6.1 mU/mL Normal 1.5-8.1 [facility] Comment on above: Order Comment: Speci nicole Type: BLOOD SPECIMENOrdering Facility: [facility] Address: [address] [place] [address] Result Comment: This test was developed and its performance characteristics determined by [facility]'s Sarai Tabatha [facility] [place] ([facility]). It has not been cleared or approved by the FDA. [facility] is regulated under CLIA as qualified to perform high-complexity testing. This test is used for clinical purposes. It should not be regarded as investigational or for research. Performed By: #### 1 761-6 ####[facility] [id number] [address] [place] BLOOD TB SCREENon 01-05-2023 M. tuberculosis tuberculin stim IFN-g Ql (Bld) Negative Normal [facility] Comment on above: Order Comment: Speci men Type: BLOOD SPECIMENOrdering Facility: [facility] Address: [address] [address] Performed By: #### I NFTBP ####[facility] [id number] [address] [place] MITOGEN MINUS NIL >9.97 Normal >=0.50 [facility] Comment on above: Order Comment: Speci men Type: BLOOD SPECIMENOrdering Facility: [facility] Address: [address] [place] [address] Performed By: #### I NFTBP ####[facility] [id number] [address] TB GAMMA INTERPRETATION Infection with M. tuberculosis complex is unlikely. If latent tuberculosis infection is highly suspected, a negative result does not rule out the infection. Specimens from immunocompromised patients and those <5 years of age may show false negative results. In case of a contact investigation, please repeat 8-12 weeks after a known exposure. Normal [facility] Comment on above: Order Comment: Speci men Type: BLOOD SPECIMENOrdering Facility: [facility] Address: [address] [place] [address] Performed By: #### I NFTBP ####[facility] [id number] [address] TB NIL 0.03 IU/mL Normal <=8.00 [facility] Comment on above: Order Comment: Speci men Type: BLOOD SPECIMENOrdering Facility: [facility] Address: [address] [place], [place] [address] Performed By: #### I NFTBP ####[facility] [id number] [address] TB1 AG MINUS NIL 0.01 IU/mL Normal <0.35 [facility] Comment on above: Order Comment: Speci men Type: BLOOD SPECIMENOrdering Facility: [facility] Address: [address] [place] [address] Performed By: #### I NFTBP ####[facility] [id number] [address] OF [place] TB2 AG MINUS NIL 0.04 IU/mL Normal <0.35 [facility] Comment on above: Order Comment: Speci men Type: BLOOD SPECIMENOrdering Facility: [facility] Address: [address] [address] Performed By: #### I NFTBP ####[facility] [id number] [address] CBC panel Auto (Bld)on 01-05 Erythrocyte distribution width (RBC) [Ratio] 12.9 % 11.5 - 15.0 % [facility] Hematocrit (Bld) [Volume fraction] 48.7 % 39.0 - 51.0 % [facility] Hemoglobin (Bld) [Mass/Vol] 16.3 g/dL 13.0 - 17.0 g/dL [facility] MCH (RBC) [Entitic mass] 35.6 pg High 26.0 - 34.0 pg [facility] MCHC (RBC) [Mass/Vol] 33.5 g/dL 30.5 - 36.0 g/dL [facility] MCV (RBC) [Entitic vol] 106.3 fL High 80.0 - 100.0 fL [facility] Nucleated RBC (Bld) [#/Vol] <0.01 k/uL [facility] Platelet mean volume (Bld) [Entitic vol] 10.7 fL 9.0 - 12.7 fL [facility] Platelets (Bld) [#/Vol] 207 10*3/uL 150 - 400 k/uL [facility] RBC (Bld) [#/Vol] 4.58 10*6/uL 4.20 - 6.00 m/uL [facility] WBC (Bld) [#/Vol] 12.21 10*3/uL High 3.70 - 11.00 k/uL [facility] Erythrocyte distribution width (RBC) [Ratio] 12.9 % Normal 11.5-15.0 [facility] Comment on above: Order Comment: Speci men Type: BLOOD SPECIMENOrdering Facility: [facility] Address: [address] [place], [place] [address] Performed By: #### 5 8410-2, 4537-7 ####[facility] [id number] [place] [address] [place] Hematocrit (Bld) [Volume fraction] 48.7 % Normal 39.0-51.0 [facility] Comment on above: Order Comment: Speci men Type: BLOOD SPECIMENOrdering Facility: [facility] Address: [address] [place] [address] Performed By: #### 5 8410-2, 4537-7 ####[facility] [id number] [place] [address] [place] Hemoglobin (Bld) [Mass/Vol] 16.3 g/dL Normal 13.0-17.0 [facility] Comment on above: Order Comment: Speci men Type: BLOOD SPECIMENOrdering Facility: [facility] Address: [address] [place] [address] Performed By: #### 5 8410-2, 453-7 ####[facility] [id number] [place] [address] [place] MCH (RBC) [Entitic mass] 35.6 pg High 26.0-34.0 [facility] Comment on above: Order Comment: Speci men Type: BLOOD SPECIMENOrdering Facility: [facility] Address: [address] [place], [place] [address] Performed By: #### 5 8410-2, 4537-7 ####[facility] [id number] [place] [address] [place] MCHC (RBC) [Mass/Vol] 33.5 g/dL Normal 30.5-36.0 [facility] Comment on above: Order Comment: Speci men Type: BLOOD SPECIMENOrdering Facility: [facility] Address: [address] [place], [place] [address] Performed By: #### 5 8410-2, 4536-7 ####[facility] [id number] [place] [address] [place] MCV (RBC) [Entitic vol] 106.3 fL High 80.0-100.0 [facility] Comment on above: Order Comment: Speci men Type: BLOOD SPECIMENOrdering Facility: [facility] Address: [address] [place], [place] [address] Performed By: #### 5 8410-2, 7 ####[facility] [id number] [place] [address] [place] Nucleated RBC (Bld) [#/Vol] 10*3/uL Normal <0.01 [facility] Comment on above: Order Comment: Speci men Type: BLOOD SPECIMENOrdering Facility: [facility] Address: [address] [place], [place] [address] Performed By: #### 5 8410-2, 7 ####[facility] [id number] [place] [address] [place] Platelet mean volume (Bld) [Entitic vol] 10.7 fL Normal 9.0-12.7 [facility] Comment on above: Order Comment: Speci men Type: BLOOD SPECIMENOrdering Facility: [facility] Address: [address] [place] [address] Performed By: #### 5 8410-2, 7 ####[facility] [id number] [place] [address] [place] Platelets (Bld) [#/Vol] 207 10*3/uL Normal 150-400 [facility] Comment on above: Order Comment: Speci men Type: BLOOD SPECIMENOrdering Facility: [facility] Address: [address] [place], [place] [address] Performed By: #### 5 8410-2, 4536-7 ####[facility] [id number] [place] [address] [place] RBC (Bld) [#/Vol] 4.58 10*6/uL Normal 4.20-6.00 [facility] Comment on above: Order Comment: Speci men Type: BLOOD SPECIMENOrdering Facility: [facility] Address: [address] [place] [address] Performed By: #### 5 8410-2, 4537-7 ####[facility] [id number] [place] [address] [place] WBC (Bld) [#/Vol] 12.21 10*3/uL High 3.70-11.00 [facility] Comment on above: Order Comment: Speci men Type: BLOOD SPECIMENOrdering Facility: [facility] Address: [address] [place] [address] Performed By: #### 5 8410-2, 4537-7 ####[facility] [id number] [place] [address] [facility] [place] CK SerPl-cCncon 01-05-2023 CK [Catalytic activity/Vol] 35 U/L Low 51-298 [facility] Comment on above: Order Comment: Speci men Type: BLOOD SPECIMENOrdering Facility: [facility] Address: [address] [place] [address] Performed By: #### 2 157-6, 28465-0, 1987-, 2131-12 ####[facility] [id number] [address] [place] CNOVon 01-05-2023 CNOV Office Visit (RADHA ) ----- ESME STEVEN ([id number]) 1960 M Date Time Provider Department 01/05/23 [...] Brower DO Patient's Name: Esme Steven [address] [place] [address] Accompanied by: self This consult was requested for my medical opinion regarding the rheumatologic evaluation of the patient's joint pain problems, and my final recommendations will be communicated to the requesting health care provider by way of the shared medical record for internal providers or letter via the [employer] for external providers. January 05, [...] or urethritis: no Renal/liver disease: as above INSURANCE SALESPERSON/PNS/sz/cva/cancer disease: no HEME-Cytopenias/LAD/Clots : no Fevers: no [...] KNEE ARTHROSCOPY/SURGERY (more content not included)... Normal [facility] CRP SerPl-ncon 01-05-2023 CRP [Mass/Vol] mg/L Normal <0.9 [facility] Comment on above: Order Comment: Speci nicole Type: BLOOD SPECIMENOrdering Facility: [facility] Address: [address] [place] [address] Performed By: #### 2 157-6, 67626-4, 2131-12 ####[facility] [id number] [place] [address] [facility] [place] Comprehensive metabolic 2000 panelon 01-05-2023 Albumin [Mass/Vol] 4.9 g/dL Normal 3.9-4.9 [facility] Comment on above: Order Comment: Mil rivera Type: BLOOD SPECIMENOrdering Facility: [facility] Address: [address] [place] [address] Performed By: #### 2 157-6, 78452-5, 2131-12 ####[facility] [id number] [place] [address] [place] ALP [Catalytic activity/Vol] 57 U/L Normal 38-113 [facility] Comment on above: Order Comment: Speci men Type: BLOOD SPECIMENOrdering Facility: [facility] Address: [address] [place] [address] Performed By: #### 2 157-6, , 2131-12 ####[facility] [id number] [place] [address] [place] ALT [Catalytic activity/Vol] 27 U/L Normal 10-54 [facility] Comment on above: Order Comment: Speci men Type: BLOOD SPECIMENOrdering Facility: [facility] Address: [address] [place] [address] Performed By: #### 2 157-6, , 2131-12 ####[facility] [id number] [place] [address] [place] Anion gap [Moles/Vol] 15 mmol/L Normal 9-18 [facility] Comment on above: Order Comment: Speci men Type: BLOOD SPECIMENOrdering Facility: [facility] Address: [address] [place] [address] Performed By: #### 2 157-6, , 2131-12 ####[facility] [id number] [place] [address] [place] AST [Catalytic activity/Vol] 16 U/L Normal 14-40 [facility] Comment on above: Order Comment: Speci men Type: BLOOD SPECIMENOrdering Facility: [facility] Address: [address] [place], [place] [address] Performed By: #### 2 157-6, , 2131-12 ####[facility] [id number] [place] [id number] [place] Bilirubin [Mass/Vol] 0.7 mg/dL Normal 0.2-1.3 [facility] Comment on above: Order Comment: Speci men Type: BLOOD SPECIMENOrdering Facility: [facility] Address: [address] [place] [address] Performed By: #### 2 157-6, , 2131-12 ####[facility] [id number] [place] [address] [place] Calcium [Mass/Vol] 10.3 mg/dL High 8.5-10.2 [facility] Comment on above: Order Comment: Speci men Type: BLOOD SPECIMENOrdering Facility: [facility] Address: [address] [place] [address] Performed By: #### 2 157-6, , 2131-12 ####[facility] [id number] [place] [address] [place] Chloride [Moles/Vol] 98 mmol/L Normal 97-105 [facility] Comment on above: Order Comment: Speci men Type: BLOOD SPECIMENOrdering Facility: [facility] Address: [address] [place], [place] [address] Performed By: #### 2 157-6, , 2131-12 ####[facility] [id number] [place] [id number] [place] CO2 [Moles/Vol] 24 mmol/L Normal 22-30 [facility] Comment on above: Order Comment: Speci men Type: BLOOD SPECIMENOrdering Facility: [facility] Address: [address] [place] [address] Performed By: #### 2 157-6, , 2131-12 ####[facility] [id number] [address] [address] [place] Creatinine [Mass/Vol] 0.98 mg/dL Normal 0.73-1.22 [facility] Comment on above: Order Comment: Mil rivera Type: BLOOD SPECIMENOrdering Facility: [facility] Address: [address] [place] [address] Performed By: #### 2 157-6, 92648-8, 2131-12 ####[facility] [id number] [place] [id number] [facility] Creatinine and Glomerular filtration rate.predicted panel (S/P/Bld) 87 mL/min/1.73m??? Normal >=60 [facility] Comment on above: Order Comment: Mil nicole Type: BLOOD SPECIMENOrdering Facility: [facility] Address: [address] [place] [phone] Result Comment: Renee mated Glomerular Filtration Rate [...] Performed By: #### 2 157-6, , 2131-12 ####[facility] [id number] [place] [id number] [place] Glucose [Mass/Vol] 120 mg/dL High 74-99 [facility] Comment on above: Order Comment: Mil rivera Type: BLOOD SPECIMENOrdering Facility: [facility] Address: [address] [place] [phone] Result Comment: The [place] [employer] (ADA) provides guidance for cutoff [...] Standards of Medical Care in Diabetes 2016, [place] [employer]. Diabetes Care. 2016.39(Suppl 1). Performed By: #### 2 157-6, , 2131-12 ####[facility] [id number] [address] [address] [place] Potassium [Moles/Vol] 4.3 mmol/L Normal 3.7-5.1 [facility] Comment on above: Order Comment: Speci men Type: BLOOD SPECIMENOrdering Facility: [facility] Address: [address] [place] [address] Performed By: #### 2 157-6, , 2131-12 ####[facility] [id number] [place] [address] [place] Protein [Mass/Vol] 7.1 g/dL Normal 6.3-8.0 [facility] Comment on above: Order Comment: Speci men Type: BLOOD SPECIMENOrdering Facility: [facility] Address: [address] [place] [address] Performed By: #### 2 157-6, , 2131-12 ####[facility] [id number] [place] [address] [place] Sodium [Moles/Vol] 137 mmol/L Normal 136-144 [facility] Comment on above: Order Comment: Speci men Type: BLOOD SPECIMENOrdering Facility: [facility] Address: [address] [place] [phone] Performed By: #### 2 157-6, , 2131-12 ####[facility] [id number] [address] [place] Urea nitrogen [Mass/Vol] 20 mg/dL Normal 9-24 [facility] Comment on above: Order Comment: Speci men Type: BLOOD SPECIMENOrdering Facility: [facility] Address: [address] [place] [address] Performed By: #### 2 157-6, 52945-3, 1988-5, 2132-9 ####[facility] [id number] [address] [place] Cyclic citrullinated peptide IgG Qnon 01-05-2023 CCP ANTIBODY IGG QUALITATIVE Negative Normal Negative [facility] Comment on above: Order Comment: Speci men Type: BLOOD SPECIMENOrdering Facility: [facility] Address: [address] [place] [address] Performed By: #### 3 3935-8 ####[facility] [id number] [place] [address] [place] ESR Westergren method (Bld) [Velocity]on 01-05-2023 ESR (Bld) [Velocity] 2 mm/h 0 - 15 mm/hr [facility] ESR (Bld) [Velocity] 2 mm/h Normal 0-15 [facility] Comment on above: Order Comment: Speci men Type: BLOOD SPECIMENOrdering Facility: [facility] Address: [address] [place] [address] Performed By: #### 5 8410-2, 4537-7 ####[facility] [id number] [place] [address] [place] HBV core Ab Ser Qlon 023 HBV core Ab Ql (S) Negative Normal Negative [facility] Comment on above: Order Comment: Speci men Type: BLOOD SPECIMENOrdering Facility: [facility] Address: [address] [place] [address] Result Comment: No e vidence of current or past infection with Hepatitis B virus. Should recent infection be suspected, repeat testing may be considered 3-4 weeks after this draw. Performed By: #### 5 195-3, 85959-0, 30728-7 ####[facility] [id number] [address] HBV surface Ab Ql (S)on 12-09 HBV surface Ab Qn (S) <8.00 Normal [facility] Comment on above: Order Comment: Speci men Type: BLOOD SPECIMENOrdering Facility: [facility] Address: [address] [place] [address] Result Comment: <8 m IU/mL: No serological evidence of immunity to Hepatitis B Virus. >/= 8 to <12 mIU/mL: No serological evidence of immunity to Hepatitis B Virus. >/= 12 mIU/mL: Consistent with serological evidence of immunity to Hepatitis B Virus. Performed By: #### 5 195-3, 36445-0, 80642-4 ####[facility] [id number] [address] HBV surface Ab Ser Qlon 12-09 HBV surface Ab Ql (S) Negative Normal [facility] [facility] Comment on above: Order Comment: Speci men Type: BLOOD SPECIMENOrdering Facility: [facility] Address: [address] [place] [address] Result Comment: No s erological evidence of immunity to Hepatitis B Virus. Performed By: #### 5 195-3, 01985-5, 69522-8 ####[facility] LABCLIA [id number] [address] HBV surface Ag Ser Qlon 12-09 HBV surface Ag Ql (S) Negative Normal Negative [facility] Comment on above: Order Comment: Speci men Type: BLOOD SPECIMENOrdering Facility: [facility] Address: [address] [place] [address] Performed By: #### 5 195-3, 59638-5, 92382-6 ####[facility] LABCLIA [id number] [address] [place] HCV Ab Ser Qlon 01-05-2023 HCV Ab Ql (S) Negative Normal Negative [facility] Comment on above: Order Comment: Speci men Type: BLOOD SPECIMENOrdering Facility: [facility] Address: [address] [place] [address] Result Comment: The result suggests no evidence of active infection with Hepatitis C virus. Should recent infection be suspected, repeat testing may be considered 4-6 weeks after this draw. Performed By: #### 1 6128-1 ####[facility] LABIA [id number] [place] [address] [place] Rheumatoid fact SerPl-aCncon 01-05-2023 Rheumatoid factor Qn [IU]/mL Normal <16 [facility] Comment on above: Order Comment: Speci men Type: BLOOD SPECIMENOrdering Facility: [facility] Address: [address] [place] [address] Performed By: #### 3 084-1, 17166-9 ####[facility] LABIA [id number] [place] [address] [place] Urate SerPl-[facility] 3 Urate [Mass/Vol] 6.1 mg/dL Normal 4.0-8.1 [facility] Comment on above: Order Comment: Speci men Type: BLOOD SPECIMENOrdering Facility: [facility] Address: [address] [place], [place] [id number] Performed By: #### 3 084-1, 30018-5 ####[facility] [id number] [place] [address] [place] Vit B12 SerPl-mCncon 023 Cobalamin (Vitamin B12) [Mass/Vol] 343 pg/mL Normal 232-1245 [facility] Comment on above: Order Comment: Speci men Type: BLOOD SPECIMENOrdering Facility: [facility] Address: [address] [place], [place] [id number] Performed By: #### 2 157-6, 72740-2, 1987-5, 2-9 ####[facility] LABCLIA [id number] [place] [address] [place] cCP IgG SerPl-aCncon 023 Cyclic citrullinated peptide IgG Qn <15 Normal <20 [facility] Comment on above: Order Comment: Speci men Type: BLOOD SPECIMENOrdering Facility: [facility] Address: [address] [address] Performed By: #### 3 3935-8 ####[facility] LABCLIA [id number] [place] [address] [place] A1C with Estimated Average G luon 11-13-2022 Glucose [Mass/Vol] 114 mg/dL Normal [facility] Comment on above: Order Comment: Reaso n for Exam Primary osteoarthritis 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;Other care home (current Result Comment: PERF ORMED BY: [place] [address] PATHOLOGIST STRAP MACHINE OPERATOR AUTOMATIC ALAYNA CAPONE M.D. Performed By: #### A 1C WT eA, HGB, [id number], ALB #### [facility] [address] [id number] [place] Albumin Levelon 11-13-2022 Albumin [Mass/Vol] 4.3 g/dL Normal 3.5-5.7 [facility] Comment on above: Order Comment: Reaso n for Exam Primary osteoarthritis 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;Other care home (current Performed By: #### A 1C WTH eA, HGB, [id number], ALB #### [facility] [address] [place] [id number] [place] Albumin [Mass/volume] in Ser um or Plasma by Bromocresol green (BCG) dye binding methoOrdered By: Sarai Mendez on 11-13-2022 Albumin BCG dye [Mass/Vol] 4.3 g/dL 3.5-5.7 [facility] Glucose mean value [Mass/vol ume] in Blood Estimated from glycated hemoglobinOrdered By: Sarai Mendez on 11-13-2022 Average glucose Estimated from glycated hemoglobin (Bld) [Mass/Vol] 114 mg/dL [facility] Hemoglobin A1c percentageOrd ered By: Sarai Mendez on 11-13-2022 HbA1c (Bld) [Mass fraction] 5.6 % Normal 4.3-5.6 [facility] Comment on above: Increased risk for d iabetes: 5.7 - 6.4diabetes: >6.4glycemic control for adults with diabetes: <7.0 Order Comment: Reaso n for Exam Primary osteoarthritis 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;Other care home (current Result Comment: Incr eased risk for diabetes: 5.7 - 6.4 diabetes: >6.4 glycemic control for adults with diabetes: <7.0 Performed By: #### A 1C WTH eA, HGB, [id number], ALB #### [facility] [address] Hemoglobin [Mass/volume] in BloodOrdered By: Sarai Mendez on 11-13-2022 Hemoglobin (Bld) [Mass/Vol] 14.7 g/dL Normal 13.0-17.0 [facility] Comment on above: Order Comment: Reaso n for Exam Primary osteoarthritis 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;Other care home (current Result Comment: PERF ORMED BY: [place] [address] PATHOLOGIST STRAP MACHINE OPERATOR AUTOMATIC ALAYNA CAPONE M.D. 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 Evaluation,treatment, and prevention of vitamin D deficiency; an Endocrine Society clinical practice guideline. JCEM. 2010; 96(7):191-. PERFORMED BY: [place] [address] PATHOLOGIST STRAP MACHINE OPERATOR AUTOMATIC ALAYNA CAPONE M.D. Performed By: #### A 1C WTH eA, HGB, [id number], ALB #### [address] Vitamin D+Metabolites [Mass/ volume] in Serum or PlasmaOrdered By: Sarai Mendez on 11-13-2022 Vitamin D+Metabolites [Mass/Vol] 13.3 ng/mL 30-100 [facility] Comment on above: VITAMIN D STATUS 25( [place])VITAMIN D RANGE (ng/mL) Deficient <20 Insufficient 20 to <30Sufficient 30 to 100Reference: Ras MF,Tanika NC, Sergio DELGADILLO, et al. Evaluation,treatment, and prevention of vitamin D deficiency; an Endocrine Society clinical practice guideline. JCEM. 2010; 96(7):1911-30. XR hip RT min 2V(w/wo pelvis )*on 10-26-2022 XR hip RT min 2V(w/wo pelvis)* [facility] [place] [address] [place] [address] XRay Report Signed Patient: Esme Steven MR#: [id number] : 1960 Acct:[id number] Age/Sex: 61 / M ADM Date: 10/26/22 Loc: [facility] Room: Type: [facility] Attending Dr: Sarai Mendez II, MD [...] Castro Jr., D.O.10/26/2022 2:59 PM Dictation Location: [place] [address] Transcribed By: [facility] 10/26/22 1459 Dictated By: Alex Castro Jr, DO 10/26/22 1422 Signed By: 10/26/22 1459 Normal [facility] Activated partial thrombopla stin time (aPTT) in platelet poor plasma by coagulation aOrdered By: Damien Holbrook on 10-11-2022 aPTT Coag (PPP) [Time] 24.5 s 25.1-36.5 [facility] Alanine aminotransferase [En zymatic activity/volume] in Serum or PlasmaOrdered By: Damien Holbrook on 10-11-2022 ALT [Catalytic activity/Vol] 37 U/L Normal 7-52 [facility] Comment on above: Performed By: #### A 1C WTH eA, HGB, [id number], ALB #### [facility] [address] [place] [address] [place] Albumin [Mass/volume] in Ser um or Plasma by Bromocresol green (BCG) dye binding methoOrdered By: Damien Holbrook on 10-11-2022 Albumin BCG dye [Mass/Vol] 4.3 g/dL 3.5-5.7 [facility] Alkaline phosphatase [Enzyma tic activity/volume] in Serum or PlasmaOrdered By: Damien Holbrook on 10-11-2022 ALP [Catalytic activity/Vol] 51 U/L Normal 34-104 [facility] Comment on above: Performed By: #### A 1C WTH eA, HGB, [id number], ALB #### [facility] [address] [place] [address] [place] Aspartate aminotransferase [ Enzymatic activity/volume] in Serum or PlasmaOrdered By: Damien Holbrook on 10-11-2022 AST [Catalytic activity/Vol] 26 U/L Normal 13-39 [facility] Comment on above: Performed By: #### A 1C WTH eA, HGB, [id number], ALB #### [facility] [address] [place] [id number] [place] Automated basophil %Ordered By: Damien Holbrook on 10-11-2022 Basophils/100 WBC (Bld) 1.1 % Normal . [facility] Comment on above: Performed By: #### A 1C WTH eA, HGB, [id number], ALB #### [address] Automated basophil countOrde red By: Damien Holbrook on 10-11-2022 Basophils (Bld) [#/Vol] 0.1 10*3/uL Normal 0.0-0.2 [facility] Comment on above: Result Comment: PERF ORMED BY: [place] [address] PATHOLOGIST STRAP MACHINE OPERATOR AUTOMATIC ALAYNA CAPONE M.D. Performed By: #### A 1C WTH eA, HGB, [id number], ALB #### [address] Automated blood monocyte cou ntOrdered By: Damien Holbrook on 10-11-2022 Monocytes (Bld) [#/Vol] 1.1 10*3/uL High 0.0-0.8 [facility] Comment on above: Performed By: #### A 1C WTH eA, HGB, [id number], ALB #### [address] Automated eosinophil %Ordere d By: Damien Holbrook on 10-11-2022 Eosinophils/100 WBC (Bld) 0.4 % Normal . [facility] Comment on above: Performed By: #### A 1C WTH eA, HGB, [id number], ALB #### [address] Automated eosinophil countOr dered By: Damien Holbrook on 10-11-2022 Eosinophils (Bld) [#/Vol] 0.0 10*3/uL Normal 0.0-0.45 [facility] Comment on above: Performed By: #### A 1C WTH eA, HGB, [id number], ALB #### [address] Automated erythrocytes count in urine sediment (number/area)Ordered By: Damien Holbrook on 10-11-2022 RBC Auto (Urine sed) [#/Area] 3-4 [HPF] 0-4 [facility] Automated leukocytes count i n urine sediment (number/area)Ordered By: Damien Holbrook on 10-11-2022 WBC Auto (Urine sed) [#/Area] 3-4 [HPF] 0-4 [facility] Automated monocyte %Ordered By: Damien Holbrook on 10-11-2022 Monocytes/100 WBC (Bld) 9.1 % Normal . [facility] Comment on above: Performed By: #### A 1C WT eA, HGB, [id number], ALB #### [facility] [address] Automated neutrophil %Ordere d By: Damien Holbrook on 10-11-2022 Neutrophils/100 WBC (Bld) 76.4 % Normal . 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 Performed By: #### B ORTHOTIC TECHNICIAN #### [facility] [address] Bilirubin Test strip Ql (U)O rdered By: Damien Holbrook on 10-11-2022 Bilirubin Ql (U) 1+ Negative [facility] Bilirubin.total [Mass/volume ] in Serum or PlasmaOrdered By: Damien Holbrook on 10-11-2022 Bilirubin [Mass/Vol] 1.0 mg/dL Normal 0.3-1.0 [facility] Comment on above: Performed By: #### A 1C WTH eA, HGB, [id number], ALB #### [facility] [address] [place] [address] CT head/brain wo conon 10-11 CT head/brain wo con [facility] [place] [address] [place] [address] CT Scan Report Signed Patient: Esme Steven MR#: [id number] : 1960 Acct:[id number] Age/Sex: 61 / M ADM Date: 10/11/22 Loc: ER Room: Type: [facility] ER Attending Dr: Copies to: Damien Holbrook [...] Matt Ferrell M.D.10/11/2022 3:37 PM Dictation Location: [place] [address] Transcribed By: [facility] 10/11/221536 Dictated By: Matt Ferrell DO 10/11/221535 Signed By: 10/11/22 153 Normal [facility] Calcium [Mass/volume] in Ser um or PlasmaOrdered By: Damien Holbrook on 10-11-2022 Calcium [Mass/Vol] 9.7 mg/dL Normal 8.6-10.3 [facility] Comment on above: Performed By: #### A 1C WTH eA, HGB, [id number], ALB #### [facility] [address] [place] [id number] [facility] Carbon dioxide, total [Moles /volume] in Serum or PlasmaOrdered By: Damien Holbrook on 10-11-2022 CO2 [Moles/Vol] 27.5 mmol/L Normal 21.0-31.0 [facility] Comment on above: Performed By: #### A 1C WTH eA, HGB, [id number], ALB #### [facility] [address] [place] [id number] [place] Chloride [Moles/volume] in S ursula or PlasmaOrdered By: Damien Holbrook on 10-11-2022 Chloride [Moles/Vol] 101 mmol/L Normal 98-107 [facility] Comment on above: Performed By: #### A 1C WTH eA, HGB, [id number], ALB #### [facility] [address] [place] [id number] [place] Complete Blood Count Auto Di ffon 10-11-2022 Mean Corpuscular HGB Conc 34.2 g/dL Normal 32.5-35.6 [facility] Comment on above: Performed By: #### A 1C WTH eA, HGB, [id number], ALB #### [facility] [address] [id number] [place] Monocytes/100 WBC (Bld) 21.21 % High 0.00-20.00 [facility] Comment on above: Result Comment: For adults in ED, MDW > 20.0 may be associated with a higher risk of sepsis during the first 12 hrs of hospital admission Performed By: #### A 1C WTH eA, HGB, [id number], ALB #### [facility] [address] NRBC% 0.1 /100{WBC} Normal 0-0.5 [facility] Comment on above: Performed By: #### A 1C WTH eA, HGB, [id number], ALB #### [facility] [address] Comprehensive Metabolic Pane jose 10-11-2022 Albumin [Mass/Vol] 4.3 g/dL Normal 3.5-5.7 [facility] Comment on above: Performed By: #### A 1C WTH eA, HGB, [id number], ALB #### [address] GFR/1.73 sq M.predicted MDRD (S/P/Bld) [Vol rate/Area] mL/min/{1.73_m2} Normal [facility] Comment on above: Performed By: #### A 1C WTH eA, HGB, [id number], ALB #### [address] Creatinine [Mass/volume] in Serum or PlasmaOrdered By: Damien Holbrook on 10-11-2022 Creatinine [Mass/Vol] 1.25 mg/dL Normal 0.70-1.30 [facility] Comment on above: Performed By: #### A 1C WTH eA, HGB, [id number], ALB #### [address] Dipstick and Microscopicon 0 10-11-2022 Appearance (U) Cloudy Critically abnormal Clear [facility] Comment on above: Order Comment: Reaso n for Exam Primary osteoarthritis 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;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 Performed By: #### A 1C WTH eA, HGB, [id number], ALB #### [address] Bacteria,Urine None Seen Normal None Seen [facility] Comment on above: Order Comment: Reaso n for Exam Primary osteoarthritis 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;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 Performed By: #### A 1C WTH eA, HGB, [id number], ALB #### [facility] [address] [place] [address] [place] Bilirubin,Urine 1+ High Negative [facility] Comment on above: Order Comment: Reaso n for Exam Primary osteoarthritis 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;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 Performed By: #### A 1C WTH eA, HGB, [id number], ALB #### [facility] [address] Glucose Ql (U) Normal Normal Normal [facility] Comment on above: Order Comment: Reaso n for Exam Primary osteoarthritis 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;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 Performed By: #### A 1C WTH eA, HGB, [id number], ALB #### [address] Nitrite,Urine Negative Normal Negative [facility] Comment on above: Order Comment: Reaso n for Exam Primary osteoarthritis 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;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 Performed By: #### A 1C WTH eA, HGB, [id number], ALB #### [place] [address] [place] Squamous Epithelial Cell,Urine 0-1 Normal 0-2 [facility] Comment on above: Order Comment: Reaso n for Exam Primary osteoarthritis 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;Other care home (current Performed By: #### A 1C WTH eA, HGB, [id number], ALB #### [place] [address] [place] Urobilinogen,Urine Normal Normal Normal [facility] Comment on above: Order Comment: Reaso n for Exam Primary osteoarthritis 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;Other care home (current Performed By: #### A 1C WTH eA, HGB, [id number], ALB #### [facility] [address] WBC,Urine 3-4 Normal 0-4 [facility] Comment on above: Order Comment: Reaso n for Exam Primary osteoarthritis 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;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 Performed By: #### A 1C WTH eA, HGB, [id number], ALB #### [facility] [address] ECG 12 lead ECGon 10-11-2022 ECG 12 lead ECG [facility] [place] [address] [place] [address] Electrocardiograph Report Signed Patient: Esme Steven MR#: [id number] : 1960 Acct:[id number] Age/Sex: 61 / M ADM Date: 10/11/22 Loc: ER Room: Type: [facility] ER Attending Dr: Ordering Provider: Damien [...] By Joaquin Ramos MD 08/29 Normal [facility] Erythrocyte distribution wid th [Ratio] by Automated countOrdered By: Damien Holbrook on 10-11-2022 Erythrocyte distribution width (RBC) [Ratio] 14.4 % Normal 12.0-14.8 [facility] Comment on above: Performed By: #### A 1C WTH eA, HGB, [id number], ALB #### [facility] [address] Erythrocytes [#/volume] in B lood by Automated countOrdered By: Damien Holbrook on 10-11-2022 RBC (Bld) [#/Vol] 4.38 10*6/uL Normal 3.90-5.60 [facility] Comment on above: Performed By: #### A 1C WTH eA, HGB, [id number], ALB #### [facility] [address] [place] [address] [place] Glucose [Mass/volume] in Ser um or PlasmaOrdered By: Damien Hoblrook on 10-11-2022 Glucose [Mass/Vol] 128 mg/dL High 70-100 [facility] Comment on above: ADA recommended refe rence rangeRandom Glucose Reference Range is dependent on time and content of last meal. Glucose of more than 200 mg/dL in a nonstressed, ambulatory subject supports the diagnosis of Diabetes Mellitus. Result Comment: [place] om Glucose Reference Range is dependent on time and content of last meal. Glucose of more than 200 mg/dL in a nonstressed, ambulatory subject supports the diagnosis of Diabetes Mellitus. ADA recommended reference range Performed By: #### A 1C WTH eA, HGB, [id number], ALB #### [facility] [address] [place] [address] [place] Hematocrit [Volume Fraction] of Blood by Automated countOrdered By: Damien Holbrook on 10-11-2022 Hematocrit (Bld) [Volume fraction] 45.3 % Normal 38.8-50.0 [facility] Comment on above: Performed By: #### A 1C WTH eA, HGB, [id number], ALB #### [facility] [address] Hemoglobin [Mass/volume] in BloodOrdered By: Damien Holbrook on 10-11-2022 Hemoglobin (Bld) [Mass/Vol] 15.5 g/dL Normal 13.0-17.0 [facility] Comment on above: Performed By: #### A 1C WT eA, HGB, [id number], ALB #### [facility] [address] Ketones Auto test strip (U) [Mass/Vol]Ordered By: Damien Holbrook on 10-11-2022 Ketones (U) [Mass/Vol] Trace Negative [facility] Leukocytes [#/volume] correc collins for nucleated erythrocytes in Blood by Automated counOrdered By: Damien Holbrook on 10-11-2022 WBC corrected for nucl RBC Auto (Bld) [#/Vol] 11.9 10*3/uL 4.1-10.5 [facility] Leukocytes [#/volume] in Blo od by Automated countOrdered By: Damien Holbrook on 10-11-2022 WBC (Bld) [#/Vol] 11.9 10*3/uL High 4.1-10.5 [facility] Comment on above: Performed By: #### A 1C WT eA, HGB, [id number], ALB #### [facility] [address] Lymphocytes [#/volume] in Bl ood by Automated countOrdered By: Damien Holbrook on 10-11-2022 Lymphocytes (Bld) [#/Vol] 1.5 10*3/uL Normal 1.00-4.8 [facility] Comment on above: Performed By: #### A 1C WT eA, HGB, [id number], ALB #### [facility] [address] [place] [address] [place] Lymphocytes/100 leukocytes i n Blood by Automated countOrdered By: Damien Holbrook on 10-11-2022 Lymphocytes/100 WBC (Bld) 13.0 % Normal . [facility] Comment on above: Performed By: #### A 1C WTH eA, HGB, [id number], ALB #### [facility] [address] [place] [address] [place] MCH [Entitic mass] by Automa collins countOrdered By: Damien Holbrook on 10-11-2022 MCH (RBC) [Entitic mass] 35.3 pg High 27.5-35.2 [facility] Comment on above: Performed By: #### A 1C WT eA, HGB, [id number], ALB #### [address] MCHC Auto (RBC) [Mass/Vol]Or dered By: Damien Holbrook on 10-11-2022 MCHC (RBC) [Mass/Vol] 34.2 g/dL 32.5-35.6 [facility] MCV [Entitic volume] by Auto mated countOrdered By: Damien Holbrook on 10-11-2022 MCV (RBC) [Entitic vol] 103.4 fL High 83.5-101 [facility] Comment on above: Performed By: #### A 1C [facility] eA, HGB, [id number], ALB #### [address] Magnesium [Mass/volume] in S ursula or PlasmaOrdered By: Damien Holbrook on 10-11-2022 Magnesium [Mass/Vol] 1.6 mg/dL Low 1.9-2.7 [facility] Comment on above: Result Comment: PERF ORMED BY: [place] [address] PATHOLOGIST STRAP MACHINE OPERATOR AUTOMATIC ALAYNA CAPONE M.D. Performed By: #### A 1C WT eA, HGB, [id number], ALB #### [address] Monocyte distribution width [Entitic volume] in Blood by AutomatedOrdered By: Damien Holbrook on 10-11-2022 Monocyte distribution width Auto (Bld) [Entitic vol] 21.21 % 0.00-20.00 [facility] Comment on above: For adults in ED, MD W > 20.0 may be associated with a higher risk of sepsis during the first 12 hrs of hospital admission Neutrophils [#/volume] in Bl ood by Automated countOrdered By: Damien Holbrook on 10-11-2022 Neutrophils (Bld) [#/Vol] 9.1 10*3/uL High 1.8-7.7 [facility] Comment on above: Performed By: #### A 1C WT eA, HGB, [id number], ALB #### [address] Nitrite Test strip Ql (U)Ord ered By: Damien Holbrook on 10-11-2022 Nitrite Ql (U) Negative Negative [facility] No Panel InformationOrdered By: Damien Holbrook on 10-11-2022 Estimated GFR (CKD-EPI) > 60.0 mL/Min [facility] Creatinine Clearance (Chem N/A [facility] Nucleated erythrocytes [Pres ence] in Blood by Automated countOrdered By: Damien Holbrook on 10-11-2022 Nucleated RBC Auto Ql (Bld) 0.1 /100{WBC} 0-0.5 [facility] Partial Thromboplastin Timeo n 10-11-2022 aPTT Coag (Bld) [Time] 24.5 s Low 25.1-36.5 Th e [facility] Comment on above: Result Comment: PERF ORMED BY: [place] [address] PATHOLOGIST STRAP MACHINE OPERATOR AUTOMATIC ALAYNA CAPONE M.D. Performed By: #### A 1C WT eA, HGB, [id number], ALB #### [address] Platelet mean volume [Entiti c volume] in Blood by Automated countOrdered By: Damien Holbrook on 10-11-2022 Platelet mean volume (Bld) [Entitic vol] 8.6 fL Normal 6.6-10.1 [facility] Comment on above: Performed By: #### A 1C WTH eA, HGB, [id number], ALB #### [address] Platelet poor plasma interna tional normalized ratio (INR) by coagulation assay (relatOrdered By: Damien Holbrook on 10-11-2022 INR Coag (PPP) [Relative time] 1.0 {INR} Normal [facility] Comment on above: INR Therapeutic Rang e [...] By: #### A 1C WTH eA, HGB, [id number], ALB #### [facility] [address] [place] [address] [place] Platelets [#/volume] in Bloo d by Automated countOrdered By: Damien Holbrook on 10-11-2022 Platelets (Bld) [#/Vol] 197 10*3/uL Normal 150-450 [facility] Comment on above: Performed By: #### A 1C WTH eA, HGB, [id number], ALB #### [facility] [address] [place] [address] [place] Potassium [Moles/volume] in Serum or PlasmaOrdered By: Damien Holbrook on 10-11-2022 Potassium [Moles/Vol] 4.0 mmol/L Normal 3.5-5.1 [facility] Comment on above: Performed By: #### A 1C WTH eA, HGB, [id number], ALB #### [facility] [address] [place] [address] [place] Protein [Mass/volume] in Ser um or PlasmaOrdered By: Damien Holbrook on 10-11-2022 Protein [Mass/Vol] 7.1 g/dL Normal 6.4-8.9 [facility] Comment on above: Performed By: #### A 1C WTH eA, HGB, [id number], ALB #### [place] [address] [place] Prothrombin Time INROrdered By: Damien Holbrook on 10-11-2022 PT Coag (PPP) [Time] 11.8 s Normal 9.0-12.9 [facility] Comment on above: Performed By: #### A 1C WTH eA, HGB, [id number], ALB #### [facility] [address] Serum globulin measurement b y calculation (mass/volume)Ordered By: Damien Holbrook on 10-11-2022 Globulin (S) [Mass/Vol] 2.8 g/dL [facility] Comment on above: Performed By: #### A 1C WTH eA, HGB, [id number], ALB #### [facility] [address] Serum or plasma albumin/glob ulin mass ratioOrdered By: Damien Holbrook on 10-11-2022 Albumin/Globulin [Mass ratio] 1.5 {ratio} [facility] Comment on above: Performed By: #### A 1C WT eA, HGB, [id number], ALB #### [facility] [address] Serum or plasma anion gap de terminationOrdered By: Damien Holbrook on 10-11-2022 Anion gap [Moles/Vol] 12.5 mmol/L Normal 6.0-15.0 [facility] Comment on above: Performed By: #### A 1C WTH eA, HGB, [id number], ALB #### [address] Sodium [Moles/volume] in Ser um or PlasmaOrdered By: Damien Holbrook on 10-11-2022 Sodium [Moles/Vol] 137 mmol/L Normal 136-145 [facility] Comment on above: Performed By: #### A 1C WTH eA, HGB, [id number], ALB #### [facility] [address] Specific gravity Auto test s trip (U) [Rel density]Ordered By: Damien Holbrook on 10-11-2022 Specific gravity (U) [Rel density] 1.027 1.001-1.03 0 [facility] Squamous epithelial cells de tection in urine sediment by light microscopyOrdered By: Damien Holbrook on 10-11-2022 Epithelial cells.squamous LM Ql (Urine sed) 0-1 [HPF] 0-2 [facility] Troponin I High Sensitivityo n 10-11-2022 Troponin I High Sensitivity 17.7 pg/mL Normal 0.0-20.0 [facility] Comment on above: Result Comment: PERF ORMED BY: [place] [address] PATHOLOGIST STRAP MACHINE OPERATOR AUTOMATIC ALAYNA CAPONE M.D. Performed By: #### A 1C WT eA, HGB, [id number], ALB #### [address] Troponin I High Sensitivity 18.1 pg/mL Normal 0.0-20.0 [facility] Comment on above: Result Comment: PERF ORMED BY: [place] [address] PATHOLOGIST STRAP MACHINE OPERATOR AUTOMATIC ALAYNA CAPONE M.D. Performed By: #### A 1C WTH eA, HGB, [id number], ALB #### [address] Troponin I.cardiac [Mass/vol ume] in Serum or Plasma by Detection limit <= 0.01 ng/Ordered By: Damien Holbrook on 10-11-2022 Troponin I.cardiac DL <= 0.01 ng/mL [Mass/Vol] 17.7 pg/mL 0.0-20.0 [facility] Urea nitrogen [Mass/volume] in Serum or PlasmaOrdered By: Damien Holbrook on 10-11-2022 Urea nitrogen [Mass/Vol] 19 mg/dL Normal 7-25 [facility] Comment on above: Performed By: #### A 1C WTH eA, HGB, [id number], ALB #### [address] Urine bacteria detection by automated methodOrdered By: Damien Holbrook on 10-11-2022 Bacteria Auto Ql (U) None seen None Seen [facility] Urine clarity by refractomet ry automatedOrdered By: Damien Holbrook on 10-11-2022 Clarity Refractometry automated (U) Cloudy Clear [facility] Urine glucose measurement by automated test strip (mass/volume)Ordered By: Damien Holbrook on 10-11-2022 Glucose Auto test strip (U) [Mass/Vol] Normal mg/dL Normal [facility] Urine hemoglobin detection b y automated test stripOrdered By: Damien Holbrook on 10-11-2022 Hemoglobin Auto test strip Ql (U) Negative Negative [facility] Urine leukocyte esterase det ection by automated test stripOrdered By: Damien Holbrook on 10-11-2022 Leukocyte esterase Auto test strip Ql (U) 1+ Negative [facility] Urine pH measurement by auto mated test stripOrdered By: Damien Holbrook on 10-11-2022 pH (U) 5.5 [pH] Normal 5.0-9.0 [facility] Comment on above: Order Comment: 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 n 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 Primary osteoarthritis 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;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 Performed By: #### A 1C WT eA, HGB, [id number], ALB #### [facility] [address] [place] [address] [place] Urine protein measurement by automated test strip (mass/volume)Ordered By: Damien Holbrook on 10-11-2022 Protein (U) [Mass/Vol] 100 mg/dL High Negative [facility] Comment on above: Order Comment: Reaso n for Exam Primary osteoarthritis 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;Other care home (current Performed By: #### A 1C WTH eA, HGB, [id number], ALB #### [facility] [address] [place] [id number] [place] Urobilinogen Auto test strip (U) [Mass/Vol]Ordered By: Damien Holbrook on 10-11-2022 Urobilinogen (U) [Mass/Vol] Normal mg/dL Normal [facility] Anti-Corona Antibodieson 09-08 Anti-Corona Antibodies <0.2 Normal 0.0-0.9 [facility] Comment on above: Performed By: #### A 1C WTH eA, HGB, [id number], ALB #### [facility] [address] [place] [id number] [place] Anti-dsDNA(DBL)Abon 10-03-19 23 Anti-dsDNA(DBL)Ab <1 Normal 0-9 [facility] Comment on above: Result Comment: Nega tive <5 Equivocal 5 - 9 Positive >9 Performed at: - [facility] [id number] Forestry Worker: Lucas Cooper PhD, Phone: [phone] PERFORMED BY: [place] [address] PATHOLOGIST STRAP MACHINE OPERATOR AUTOMATIC ALAYNA CAPONE M.D. Performed By: #### A 1C WTH eA, HGB, [id number], ALB #### [address] Automated basophil %Ordered By: Sarai Georges on 10-02-2022 Basophils/100 WBC (Bld) 0.6 % Normal . [facility] Comment on above: Performed By: #### A 1C WTH eA, HGB, [id number], ALB #### [address] Automated basophil countOrde red By: Sarai Georges on 10-02-2022 Basophils (Bld) [#/Vol] 0.1 10*3/uL Normal 0.0-0.2 [facility] Comment on above: Performed By: #### A 1C WTH eA, HGB, [id number], ALB #### [address] Automated blood monocyte cou ntOrdered By: Sarai Georges on 10-02-2022 Monocytes (Bld) [#/Vol] 0.7 10*3/uL Normal 0.0-0.8 [facility] Comment on above: Performed By: #### A 1C WTH eA, HGB, [id number], ALB #### [address] Automated eosinophil %Ordere d By: Sarai Georges on 10-02-2022 Eosinophils/100 WBC (Bld) 0.5 % Normal . [facility] Comment on above: Performed By: #### A 1C WT eA, HGB, [id number], ALB #### [facility] [address] Automated eosinophil countOr dered By: Sarai Georges on 10-02-2022 Eosinophils (Bld) [#/Vol] 0.0 10*3/uL Normal 0.0-0.45 [facility] Comment on above: Performed By: #### A 1C WTH eA, HGB, [id number], ALB #### [facility] [address] Automated erythrocytes count in urine sediment (number/area)Ordered By: Sarai Georges on 10-02-2022 RBC Auto (Urine sed) [#/Area] 1-2 [HPF] 0-4 [facility] Automated leukocytes count i n urine sediment (number/area)Ordered By: Sarai Georges on 10-02-2022 WBC Auto (Urine sed) [#/Area] None seen [HPF] 0-4 [facility] Automated monocyte %Ordered By: Sarai Georges on 10-02-2022 Monocytes/100 WBC (Bld) 7.2 % Normal . [facility] Comment on above: Performed By: #### A 1C WT eA, HGB, [id number], ALB #### [facility] [address] Automated neutrophil %Ordere d By: Sarai Georges on 10-02-2022 Neutrophils/100 WBC (Bld) 73.2 % Normal . [facility] Comment on above: Performed By: #### A 1C WTH eA, HGB, [id number], ALB #### [facility] [address] Bilirubin Auto test strip Ql (U)Ordered By: Sarai Georges on 10-02-2022 Bilirubin Ql (U) Negative Negative [facility] C reactive protein [Mass/vol ume] in Serum or PlasmaOrdered By: Sarai Georges on 10-02-2022 CRP [Mass/Vol] 0.5 mg/dL 0.0-0.5 [facility] C-Reactive Proteinon 023 C-Reactive Protein 0.5 mg/dL Normal 0.0-0.5 [facility] Comment on above: Result Comment: PERF ORMED BY: [place] [address] PATHOLOGIST STRAP MACHINE OPERATOR AUTOMATIC ALAYNA CAPONE M.D. Performed By: #### A 1C WTH eA, HGB, [id number], ALB #### [address] Complement C3on 10-02-2022 Complement C3 147 mg/dL Normal 82-167 [facility] Comment on above: Result Comment: Perf ormed at: [address] [id number] Forestry Worker: Lucas Cooper PhD, Phone: [phone] Performed By: #### A 1C WTH eA, HGB, [id number], ALB #### [address] Complement C4on 10-02-2022 Complement C4 29 mg/dL Normal 12-38 [facility] Comment on above: Performed By: #### A 1C WTH eA, HGB, [id number], ALB #### [place] [address] [place] Complement Total (CH50)on Complement Total (CH50) >60 Normal >41 [facility] Comment on above: Result [...] determine out of range values. Performed at: [address] [id number] Forestry Worker: Lucas Cooper PhD, Phone: [phone] PERFORMED BY: [place] [address] PATHOLOGIST STRAP MACHINE OPERATOR AUTOMATIC ALAYNA CAPONE M.D. Performed By: #### A 1C WTH eA, HGB, [id number], ALB #### [address] Complete Blood Count Auto Di ffon 10-02-2022 Mean Corpuscular HGB Conc 33.9 g/dL Normal 32.5-35.6 [facility] Comment on above: Performed By: #### A 1C WTH eA, HGB, [id number], ALB #### [address] NRBC% 0.1 /100{WBC} Normal 0-0.5 [facility] Comment on above: Performed By: #### A 1C WTH eA, HGB, [id number], ALB #### [address] Creatine kinase [Enzymatic a ctivity/volume] in Serum or PlasmaOrdered By: Sarai Georges on 10-02-2022 CK [Catalytic activity/Vol] 52 U/L Normal 30-223 [facility] Comment on above: Result Comment: PERF ORMED BY: [place] [address] PATHOLOGIST STRAP MACHINE OPERATOR AUTOMATIC ALAYNA CAPONE M.D. Performed By: #### A 1C WTH eA, HGB, [id number], ALB #### [address] Creatinineon 10-02-2022 GFR/1.73 sq M.predicted MDRD (S/P/Bld) [Vol rate/Area] mL/min/{1.73_m2} Normal [facility] Comment on above: Performed By: #### A 1C WTH eA, HGB, [id number], ALB #### [address] Creatinine [Mass/volume] in Serum or PlasmaOrdered By: Sarai Georges on 10-02-2022 Creatinine [Mass/Vol] 1.00 mg/dL Normal 0.70-1.30 [facility] Comment on above: Performed By: #### A 1C WT eA, HGB, [id number], ALB #### [facility] [address] DNA double strand Ab [Units/ volume] in SerumOrdered By: Sarai Georges on 10-02-2022 DNA double strand Ab Qn (S) [IU]/mL 0-9 [facility] Comment on above: Negative <5 Equivoca l 5 - 9 Positive >9Performed at: - [facility] [place] [id number] Director: Lucas Cooper PhD, Phone: [phone] Dipstick and Microscopicon 0 10-02-2022 Bacteria,Urine None Seen Normal None Seen [facility] Comment on above: Order Comment: 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 n 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 Primary osteoarthritis 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;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 Performed By: #### A 1C WTH eA, HGB, [id number], ALB #### [facility] [address] Bilirubin,Urine Negative Normal Negative [facility] Comment on above: Order Comment: Reaso n for Exam Primary osteoarthritis 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;Other care home (current Performed By: #### A 1C WTH eA, HGB, [id number], ALB #### [facility] [address] [place] [address] [place] Glucose Ql (U) Normal Normal Normal [facility] Comment on above: Order Comment: Reaso n 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 Performed By: #### A 1C WTH eA, HGB, [id number], ALB #### [facility] [address] Leukocyte esterase Test strip Ql (U) Negative Normal Negative [facility] Comment on above: Order Comment: Reaso n 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 Exam Primary osteoarthritis 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;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 Performed By: #### A 1C WTH eA, HGB, [id number], ALB #### [facility] [address] [place] [address] [place] Nitrite,Urine Negative Normal Negative [facility] Comment on above: Order Comment: Reaso n for Exam Primary osteoarthritis 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;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 Performed By: #### A 1C WTH eA, HGB, [id number], ALB #### [facility] [address] [place] [address] [place] Occult Blood,Urine Negative Normal Negative [facility] Comment on above: Order Comment: Reaso n for Exam Primary osteoarthritis 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;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 Performed By: #### A 1C WTH eA, HGB, [id number], ALB #### [facility] [address] [place] [address] [place] Protein,Urine Negative Normal Negative [facility] Comment on above: Order Comment: Reaso n for Exam Primary osteoarthritis 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;Other care home (current Performed By: #### A 1C WTH eA, HGB, [id number], ALB #### [facility] [address] [place] [address] [place] RBC,Urine 1-2 Normal 0-4 [facility] Comment on above: Order Comment: Reaso n 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 Exam Primary osteoarthritis 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;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 Performed By: #### A 1C WTH eA, HGB, [id number], ALB #### [facility] [address] Specificy [place],Urine 1.015 Normal 1.001-1.03 0 [facility] Comment on above: Order Comment: Reaso n 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 Exam Primary osteoarthritis 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;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 Performed By: #### A 1C WTH eA, HGB, [id number], ALB #### [facility] [address] Squamous Epithelial Cell,Urine None Seen Normal 0-2 [facility] Comment on above: Order Comment: Reaso n 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 Exam Primary osteoarthritis 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;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 Performed By: #### A 1C WTH eA, HGB, [id number], ALB #### [facility] [address] Urobilinogen,Urine Normal Normal Normal [facility] Comment on above: Order Comment: Reaso n for Exam Primary osteoarthritis 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;Other care home (current Performed By: #### A 1C WTH eA, HGB, [id number], ALB #### [facility] [address] WBC,Urine None Seen Normal 0-4 [facility] Comment on above: Order Comment: Reaso n 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 Performed By: #### A 1C WTH eA, HGB, [id number], ALB #### [address] Erythrocyte distribution wid th [Ratio] by Automated countOrdered By: Sarai Georges on 10-02-2022 Erythrocyte distribution width (RBC) [Ratio] 14.9 % High 12.0-14.8 [facility] Comment on above: Performed By: #### A 1C WTH eA, HGB, [id number], ALB #### [facility] [address] Erythrocyte sedimentation ra te by Photometric methodOrdered By: Sarai Georges on 10-02-2022 ESR Photometric method (Bld) [Velocity] 16 mm/hr 0-19 [facility] Erythrocytes [#/volume] in B lood by Automated countOrdered By: Sarai Georges on 10-02-2022 RBC (Bld) [#/Vol] 3.94 10*6/uL Normal 3.90-5.60 [facility] Comment on above: Performed By: #### A 1C WTH eA, HGB, [id number], ALB #### [facility] [address] [place] [address] [place] Hematocrit [Volume Fraction] of Blood by Automated countOrdered By: Sarai Georges on 10-02-2022 Hematocrit (Bld) [Volume fraction] 41.2 % Normal 38.8-50.0 [facility] Comment on above: Performed By: #### A 1C WTH eA, HGB, [id number], ALB #### [facility] [address] Hemoglobin [Mass/volume] in BloodOrdered By: Sarai Georges on 10-02-2022 Hemoglobin (Bld) [Mass/Vol] 14.0 g/dL Normal 13.0-17.0 [facility] Comment on above: Performed By: #### A 1C WTH eA, HGB, [id number], ALB #### [facility] [address] Ketones Auto test strip (U) [Mass/Vol]Ordered By: Sarai Georges on 10-02-2022 Ketones (U) [Mass/Vol] Negative Negative [facility] - UrinalysisOrder ed By: Sarai Georges on 10-02-2022 Hyaline casts LM Ql (Urine sed) 0-8 [LPF] 0-8 [facility] Leukocytes [#/volume] correc collins for nucleated erythrocytes in Blood by Automated counOrdered By: Sarai Georges on 10-02-2022 WBC corrected for nucl RBC Auto (Bld) [#/Vol] 9.5 10*3/uL 4.1-10.5 [facility] Leukocytes [#/volume] in Blo od by Automated countOrdered By: Sarai Georges on 10-02-2022 WBC (Bld) [#/Vol] 9.5 10*3/uL Normal 4.1-10.5 [facility] Comment on above: Performed By: #### A 1C WTH eA, HGB, [id number], ALB #### [address] Lymphocytes [#/volume] in Bl ood by Automated countOrdered By: Sarai Georges on 10-02-2022 Lymphocytes (Bld) [#/Vol] 1.7 10*3/uL Normal 1.00-4.8 [facility] Comment on above: Performed By: #### A 1C WTH eA, HGB, [id number], ALB #### [place] [address] [place] Lymphocytes/100 leukocytes i n Blood by Automated countOrdered By: Sarai Georges on 10-02-2022 Lymphocytes/100 WBC (Bld) 18.5 % Normal . [facility] Comment on above: Performed By: #### A 1C WTH eA, HGB, [id number], ALB #### [place] [address] [place] MCH [Entitic mass] by Automa collins countOrdered By: Sarai Georges on 10-02-2022 MCH (RBC) [Entitic mass] 35.4 pg High 27.5-35.2 [facility] Comment on above: Performed By: #### A 1C WTH eA, HGB, [id number], ALB #### [place] [address] [place] MCHC Auto (RBC) [Mass/Vol]Or dered By: Sarai Georges on 10-02-2022 MCHC (RBC) [Mass/Vol] 33.9 g/dL 32.5-35.6 [facility] MCV [Entitic volume] by Auto mated countOrdered By: Sarai Georges on 10-02-2022 MCV (RBC) [Entitic vol] 104.5 fL High 83.5-101 [facility] Comment on above: Performed By: #### A 1C WTH eA, HGB, [id number], ALB #### [facility] [address] Neutrophils [#/volume] in Bl ood by Automated countOrdered By: Sarai Georges on 10-02-2022 Neutrophils (Bld) [#/Vol] 6.9 10*3/uL Normal 1.8-7.7 [facility] Comment on above: Performed By: #### A 1C WTH eA, HGB, [id number], ALB #### [facility] [address] No Panel InformationOrdered By: Sarai Georges on 10-02-2022 Estimated GFR (CKD-EPI) > 60.0 mL/Min [facility] Creatinine Clearance (Chem N/A [facility] Total Complement (CH50) >60 U/mL >41 [facility] Comment on above: Age Male Female 1 [...] determine out of range values.Performed at: - [facility] [id number] Director: Lucas Cooper PhD, Phone: [phone] Nucleated erythrocytes [Pres ence] in Blood by Automated countOrdered By: Sarai Georges on 10-02-2022 Nucleated RBC Auto Ql (Bld) 0.1 /100{WBC} 0-0.5 [facility] Platelet mean volume [Entiti c volume] in Blood by Automated countOrdered By: Sarai Georges on 10-02-2022 Platelet mean volume (Bld) [Entitic vol] 8.9 fL Normal 6.6-10.1 [facility] Comment on above: Performed By: #### A 1C WT eA, HGB, [id number], ALB #### [facility] [address] Platelets [#/volume] in Bloo d by Automated countOrdered By: Sarai Georges on 10-02-2022 Platelets (Bld) [#/Vol] 201 10*3/uL Normal 150-450 [facility] Comment on above: Performed By: #### A 1C WT eA, HGB, [id number], ALB #### [facility] [address] [place] [id number] [facility] Protein Auto test strip (U) [Mass/Vol]Ordered By: Sarai Georges on 10-02-2022 Protein (U) [Mass/Vol] Negative Negative [facility] Serum Corona extractable nucl ear antigen (OPAL) antibody assay (units/volume)Ordered By: Sarai Georges on 10-02-2022 Corona extractable nuclear Ab Qn (S) <0.2 AI 0.0-0.9 [facility] Serum or plasma complement C 3 measurement (mass/volume)Ordered By: Sarai Georges on 10-02-2022 Complement C3 [Mass/Vol] 147 mg/dL 82-167 [facility] Comment on above: Performed at: [place] [id number] Director: Lucas Cooper PhD, Phone: [phone] Serum or plasma complement C 4 measurement (mass/volume)Ordered By: Sarai Georges on 10-02-2022 Complement C4 [Mass/Vol] 29 mg/dL 12-38 [facility] Squamous epithelial cells de tection in urine sediment by light microscopyOrdered By: Sarai Georges on 10-02-2022 Epithelial cells.squamous LM Ql (Urine sed) None seen [HPF] 0-2 [facility] Urine appearanceOrdered By: Sarai Georges on 10-02-2022 Appearance (U) Clear Normal Clear [facility] Comment on above: Order Comment: Reaso n for Exam Primary osteoarthritis 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;Other care home (current Performed By: #### A 1C WTH eA, HGB, [id number], ALB #### [facility] [address] [place] [address] [place] Urine bacteria detection by automated methodOrdered By: Sarai Georges on 10-02-2022 Bacteria Auto Ql (U) None seen None Seen [facility] Urine colorOrdered By: Tyler Georges on 10-02-2022 Color (U) Yellow Normal Yellow [facility] Comment on above: Order Comment: Reaso n for Exam Primary osteoarthritis 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;Other care home (current Performed By: #### A 1C WTH eA, HGB, [id number], ALB #### [facility] [address] [place] [address] [place] Urine glucose measurement by automated test strip (mass/volume)Ordered By: Sarai Georges on 10-02-2022 Glucose Auto test strip (U) [Mass/Vol] Normal mg/dL Normal [facility] Urine hemoglobin detection b y automated test stripOrdered By: Sarai Georges on 10-02-2022 Hemoglobin Auto test strip Ql (U) Negative Negative [facility] Urine leukocyte esterase det ection by automated test stripOrdered By: Sarai Georges on 10-02-2022 Leukocyte esterase Auto test strip Ql (U) Negative Negative [facility] Urine nitrite detection by a utomated test stripOrdered By: Sarai Georges on 10-02-2022 Nitrite Auto test strip Ql (U) Negative Negative [facility] Urine pH measurement by auto mated test stripOrdered By: Sarai Georges on 10-02-2022 pH (U) 6.5 [pH] Normal 5.0-9.0 [facility] Comment on above: Order Comment: Reaso n for Exam Primary osteoarthritis 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;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 Comment on above: Performed By: #### R ETIC #### [facility] [address] [place] [address] Dr. Tracy Hubbard VIT B12 AND FOLATEon 023 Cobalamin (Vitamin B12) [Mass/Vol] 436.0 pg/mL Normal 193.0-986. 0 [facility] Comment on above: Performed By: #### B 12FOL #### [facility] [address] [place] [address] Dr. Tracy Hubbard FOLATE 17.10 ng/mL Normal 8.60-58.90 [facility] Comment on above: Performed By: #### B 12FOL #### [facility] [address] [place] [address] Dr. Tracy Hubbard CBC AUTO DIFFon 07-29-2022 BASO # 0.1 103/ul Normal 0.0-0.1 [facility] Comment on above: Performed By: #### C BC #### [facility] [address] [place] [address] Dr. Tracy Hubbard Basophils/100 WBC (Bld) 0.7 % Normal 0.2-2.0 [facility] Comment on above: Performed By: #### C BC #### [facility] [address] [place] [address] Dr. Tracy Hubbard EO # 0.1 103/ul Normal 0.0-0.7 [facility] Comment on above: Performed By: #### C BC #### [facility] [address] [place] [address] Dr. Tracy Hubbard Eosinophils/100 WBC (Bld) 1.7 % Normal 0.9-7.0 [facility] Comment on above: Performed By: #### C BC #### [facility] [address] [place] [address] Dr. Tracy Hubbard Erythrocyte distribution width (RBC) [Ratio] 12.8 % Normal 11.0-15.0 [facility] Comment on above: Performed By: #### C BC #### [facility] [address] [place] [address] Dr. Tracy Hubbard Hematocrit (Bld) [Volume fraction] 44.6 % Normal 42.0-54.0 [facility] Comment on above: Performed By: #### C BC #### [facility] [address] [place] [address] Dr. Tracy Hubbard Hemoglobin (Bld) [Mass/Vol] 15.5 g/dL Normal 14.0-18.0 [facility] Comment on above: Performed By: #### C BC #### [facility] [address] [place] [address] Dr. Tracy Hubbard IG # 0.03 10e3/ul Normal 0.00-0.03 [facility] Comment on above: Performed By: #### C BC #### [facility] [address] [place] [address] Dr. Tracy Hubbard IG % 0.4 % Normal 0.0-0.5 [facility] Comment on above: Performed By: #### C BC #### [facility] [address] [place] [address] Dr. Tracy Hubbard LYMPH # 1.7 103/ul Normal 1.2-3.8 [facility] Comment on above: Performed By: #### C BC #### [facility] [address] [place] [address] Dr. Tracy Hubbard Lymphocytes/100 WBC (Bld) 24.8 % Normal 20.5-60.0 [facility] Comment on above: Performed By: #### C BC #### [facility] [address] [place] [address] Dr. Tracy Hubbard MANUAL DIFF REQ NO Normal [facility] Comment on above: Performed By: #### C BC #### [facility] [address] [address] [address] Tracy Hubbard MCH (RBC) [Entitic mass] 35.7 pg Critically high 25.9-34.0 [facility] Comment on above: Performed By: #### C BC #### [facility] [address] [address] [address] Tracy Hubbard MCHC (RBC) [Mass/Vol] 34.8 g/dL Normal 29.9-35.2 [facility] Comment on above: Performed By: #### C BC #### [facility] [address] [place] [address] Dr. Tracy Hubbard MCV (RBC) [Entitic vol] 102.8 fL Critically high 80.0-94.0 [facility] Comment on above: Performed By: #### C BC #### [facility] [address] [place] [address] Dr. Tracy Hubbard MONO # 0.7 103/ul Normal 0.3-0.8 [facility] Comment on above: Performed By: #### C BC #### [facility] [address] [place] [address] Dr. Tracy Hubbard Monocytes/100 WBC (Bld) 9.8 % Normal 1.7-12.0 [facility] Comment on above: Performed By: #### C BC #### [facility] [address] [place] [address] Dr. Tracy Hubbard NEUT # 4.4 103/ul Normal 1.4-6.5 [facility] Comment on above: Performed By: #### C BC #### [facility] [address] [place] [address] Dr. Tracy Hubbard Neutrophils/100 WBC (Bld) 62.6 % Normal 43.0-75.0 [facility] Comment on above: Performed By: #### C BC #### [facility] [address] [place] [address] Dr. Tracy Hubbard Platelet mean volume (Bld) [Entitic vol] 10.3 fL Normal 9.5-13.5 [facility] Comment on above: Performed By: #### C BC #### [facility] [address] [address] [address] Trayc Hubbard PLT 182 103/ul Normal 150-450 [facility] Comment on above: Performed By: #### C BC #### [facility] [address] [address] [address] Tracy Hubbard RBC 4.34 106/ul Critically low 4.70-6.[address] [facility] Comment on above: Performed By: #### C BC #### [facility] [address] [address] [address] Tracy Hubbard WBC 7.0 103/ul Normal 4.0-11.0 [facility] Comment on above: Performed By: #### C BC #### [facility] [address] [place] [address] Dr. Tracy Hubbard CPKon 07-29-2022 CK [Catalytic activity/Vol] 84 U/L Normal 39-308 [facility] Comment on above: Performed By: #### C MP, CRP, TSH, LIPID, CK #### [facility] [address] [address] [address] Tracy Hubbard CRPon 07-29-2022 CRP [Mass/Vol] mg/L Normal <=1.0 [facility] Comment on above: Performed By: #### C MP, CRP, TSH, LIPID, CK #### [facility] [address] [place] [address] Dr. Tracy Hubbard LIPID PROFILEon 07-29-2022 CHOL-HDL RATIO NORM SEE BELOW Normal [facility] Comment on above: Result Comment: 3.3 - 4.4 LOW RISK 4.4 - 7.1 AVERAGE RISK 7.1 - 11.0 MODERATE RISK >11.0 HIGH RISK Performed By: #### C MP, CRP, TSH, LIPID, CK #### [facility] [address] [place] [address] Dr. Tracy Hubbard Cholesterol [Mass/Vol] 145 mg/dL Normal <=200 [facility] Comment on above: Performed By: #### C MP, CRP, TSH, LIPID, CK #### [facility] [address] [address] [address] Tracy Hubbard Cholesterol in HDL [Mass/Vol] 45 mg/dL Normal 40-60 [facility] Comment on above: Performed By: #### C MP, CRP, TSH, LIPID, CK #### [facility] [address] [address] [address] Tracy Hubbard Cholesterol in LDL [Mass/Vol] 64.4 mg/dL Normal [facility] Comment on above: Performed By: #### C MP, CRP, TSH, LIPID, CK #### [facility] [address] [address] [address] Tracy Hubbard Cholesterol.total/Chol esterol in HDL [Mass ratio] 3.2 {ratio} Normal [facility] Comment on above: Performed By: #### C MP, CRP, TSH, LIPID, CK #### [facility] [address] [address] [address] Tracy Hubbard HDL NORMAL > or = 60 mg/dl - LO W CARDIOVASCULAR RISK <40 mg/dl - HIGH CARDIOVASCULAR RISK Normal [facility] Comment on above: Performed By: #### C MP, CRP, TSH, LIPID, CK #### [facility] [address] [address] [address] Tracy Hubbard LDL CALC NORMAL SEE BELOW Normal [facility] Comment on above: Result Comment: <100 mg/dl OPTIMAL 100 - 129 mg/dl NEAR OR ABOVE OPTIMAL 130 - 159 mg/dl BORDERLINE HIGH 160 - 189 mg/dl HIGH >190 mg/dl VERY HIGH Performed By: #### C MP, CRP, TSH, LIPID, CK #### [facility] [address] [address] [address] Tracy Hubbard Triglyceride [Mass/Vol] 178 mg/dL Critically high <=150 [facility] Comment on above: Performed By: #### C MP, CRP, TSH, LIPID, CK #### [facility] [address] [address] [address] Tracy Hubbard VLDL CALC 35.6 mg/dL Normal [facility] Comment on above: Performed By: #### C MP, CRP, TSH, LIPID, CK #### [facility] [address] [address] [address] Tracy Hubbard PROF 14(COMP METB)on 023 Albumin [Mass/Vol] 4.1 g/dL Normal 3.4-5.0 [facility] Comment on above: Performed By: #### C MP, CRP, TSH, LIPID, CK #### [facility] [address] [place] [address] Dr. Tracy Hubbard Albumin/Globulin [Mass ratio] 1.2 {ratio} Normal [facility] Comment on above: Performed By: #### C MP, CRP, TSH, LIPID, CK #### [facility] [address] [place] [address] Dr. Tracy Hubbard ALP [Catalytic activity/Vol] 66 U/L Normal 46-116 [facility] Comment on above: Performed By: #### C MP, CRP, TSH, LIPID, CK #### [facility] [address] [place] [address] Dr. Tracy Hubbard ALT [Catalytic activity/Vol] 44 U/L Normal 16-63 [facility] Comment on above: Performed By: #### C MP, CRP, TSH, LIPID, CK #### [facility] [address] [place] [address] Dr. Tracy Hubbard Anion gap [Moles/Vol] 12.3 mmol/L Normal [facility] Comment on above: Performed By: #### C MP, CRP, TSH, LIPID, CK #### [facility] [address] [place] [address] Dr. Tracy Hubbard AST [Catalytic activity/Vol] 26 U/L Normal 15-37 [facility] Comment on above: Performed By: #### C MP, CRP, TSH, LIPID, CK #### [facility] [address] [place] [address] Dr. Tracy Hubbard Bilirubin [Mass/Vol] 0.8 mg/dL Normal 0.2-1.0 [facility] Comment on above: Performed By: #### C MP, CRP, TSH, LIPID, CK #### [facility] [address] [place] [address] Dr. Tracy Hubbard Calcium [Mass/Vol] 8.9 mg/dL Normal 8.5-10.1 [facility] Comment on above: Performed By: #### C MP, CRP, TSH, LIPID, CK #### [facility] [address] [place] [address] Dr. Tracy Hubbard Chloride [Moles/Vol] 103 mmol/L Normal 98-107 [facility] Comment on above: Performed By: #### C MP, CRP, TSH, LIPID, CK #### [facility] [address] [place] [address] Dr. Tracy Hubbard CO2 [Moles/Vol] 27.0 mmol/L Normal 21.0-32.0 [facility] Comment on above: Performed By: #### C MP, CRP, TSH, LIPID, CK #### [facility] [address] [place] [address] Dr. Tracy Hubbard Creatinine [Mass/Vol] 1.04 mg/dL Normal 0.70-1.30 [facility] Comment on above: Performed By: #### C MP, CRP, TSH, LIPID, CK #### [facility] [address] [place] [address] Dr. Tracy Hubbard EGFR-AF TAIWANESE >60 Normal >=60 [facility] Comment on above: Performed By: #### C MP, CRP, TSH, LIPID, CK #### [facility] [address] [place] [address] Dr. Tracy Hubbard EGFR-NON AF TAIWANESE >60 Normal >=60 [facility] Comment on above: Performed By: #### C MP, CRP, TSH, LIPID, CK #### [facility] [address] [place] [address] Dr. Tracy Hubbard Globulin (S) [Mass/Vol] 3.4 g/dL Normal [facility] Comment on above: Performed By: #### C MP, CRP, TSH, LIPID, CK #### [facility] [address] [place] [address] Dr. Tracy Hubbard Glucose [Mass/Vol] 124 mg/dL Critically high 74-106 T [facility] Comment on above: Performed By: #### C MP, CRP, TSH, LIPID, CK #### [facility] [address] [address] [address] Tracy Hubbard Potassium [Moles/Vol] 4.3 mmol/L Normal 3.5-5.1 [facility] Comment on above: Performed By: #### C MP, CRP, TSH, LIPID, CK #### [facility] [address] [address] [address] Tracy Hubbard Protein [Mass/Vol] 7.5 g/dL Normal 6.4-8.2 [facility] Comment on above: Performed By: #### C MP, CRP, TSH, LIPID, CK #### [facility] [address] [address] [address] Tracy Hubbard Sodium [Moles/Vol] 138 mmol/L Normal 136-145 [facility] Comment on above: Performed By: #### C MP, CRP, TSH, LIPID, CK #### [facility] [address] [address] [address] Tracy Hubbard Urea nitrogen [Mass/Vol] 16.0 mg/dL Normal 7.0-18.0 [facility] Comment on above: Performed By: #### C MP, CRP, TSH, LIPID, CK #### [facility] [address] [address] [address] Tracy Hubbard Urea nitrogen/Creatinine [Mass ratio] 15.4 mg/mg Normal [facility] Comment on above: Performed By: #### C MP, CRP, TSH, LIPID, CK #### [facility] [address] [address] [address] Tracy Hubbard [facility] 9 mm/hr Normal <=20 [facility] Comment on above: Performed By: #### S EDR #### [facility] [address] [address] [address] Tracy Hubbard TSHon 07-29-2022 TSH 4.856 uIU/mL Critically high 0.358-3.74 0 [facility] Comment on above: Performed By: #### C MP, CRP, TSH, LIPID, CK #### [facility] [address] [address] [address] Tracy Hubbard XR hip RT min 2V(w/wo pelvis )*on 04-12-2022 XR hip RT min 2V(w/wo pelvis)* [facility] [employer] Other XR hip RT min 2V(w/wo pelvis)* [facility] [employer] Other XR hip RT min 2V(w/wo pelvis)* [address] [facility] [employer] Other XR hip RT min 2V(w/wo pelvis)* [place] [address] [employer] Other XR hip RT min 2V(w/wo pelvis)* XRay Report [employer] Other XR hip RT min 2V(w/wo pelvis)* Signed [employer] Other XR hip RT min 2V(w/wo pelvis)* Patient: Esme Steven MR#: [id number] [employer] Other XR hip RT min 2V(w/wo pelvis)* [address] [employer] Other XR hip RT min 2V(w/wo pelvis)* : 1960 Acct:[id number] [employer] Other XR hip RT min 2V(w/wo pelvis)* Age/Sex: 61 / M ADM Date: 04/12/22 [employer] Other XR hip RT min 2V(w/wo pelvis)* Loc: SOXD Room: Type: [facility] [employer] Other XR hip RT min 2V(w/wo pelvis)* Attending Dr: Jonathan Samano MD [employer] Other XR hip RT min 2V(w/wo pelvis)* Copies to: Jonathan Samano MD [employer] Other XR hip RT min 2V(w/wo pelvis)* Ordering Provider: Jonathan Samano MD [employer] Other XR hip RT min 2V(w/wo pelvis)* Date of Service: 04/12/22 [employer] Other XR hip RT min 2V(w/wo pelvis)* XR/XR hip RT min 2V(w/wo pelvis)*: Right hip pain [employer] Other XR hip RT min 2V(w/wo pelvis)* RIGHT HIP - 2 views: [employer] Other XR hip RT min 2V(w/wo pelvis)* CLINICAL HISTORY: Low back pain that radiates to right hip for years. No known injury. [employer] Other XR hip RT min 2V(w/wo pelvis)* COMPARISON: None [employer] Other XR hip RT min 2V(w/wo pelvis)* FINDINGS: Moderate degenerative changes of the right hip without acute bony process. Left hip [employer] Other XR hip RT min 2V(w/wo pelvis)* prosthesis is in place. [email or web address] Other XR hip RT min 2V(w/wo pelvis)* XR/XR hip RT min 2V(w/wo pelvis)* [employer] Other XR hip RT min 2V(w/wo pelvis)* IMPRESSION: [employer] Other XR hip RT min 2V(w/wo pelvis)* MODERATE DEGENERATIVE CHANGES OF THE RIGHT HIP WITHOUT ACUTE BONY PROCESS.. [employer] Other XR hip RT min 2V(w/wo pelvis)* Impression dictated by: Alex Castro Jr., D.OBarbara04/12/2022 12:57 PM [employer] Other XR hip RT min 2V(w/wo pelvis)* Dictation Location: [facility] [address] [employer] Other XR hip RT min 2V(w/wo pelvis)* Transcribed By: PWS 04/12/22 [facility] [employer] Other XR hip RT min 2V(w/wo pelvis)* Dictated By: Alex Castro Jr, DO 04/12/22 [facility] [employer] Other XR hip RT min 2V(w/wo pelvis)* Signed By: [employer] Other XR hip RT min 2V(w/wo pelvis)* 04/12/22 [facility] [employer] Other XR hand RT min 3V*on XR hand RT min 3V* [facility] [employer] Other XR hand RT min 3V* [facility] [employer] Other XR hand RT min 3V* [address] [place] [address] [employer] Other XR hand RT min 3V* [place] [address] [employer] Other XR hand RT min 3V* XRay Report [employer] Other XR hand RT min 3V* Signed [employer] Other XR hand RT min 3V* Patient: Law jose antonio Steven MR#: [id number] [employer] Other XR hand RT min 3V* [address] [employer] Other XR hand RT min 3V* : 1960 Acct:[id number] [employer] Other XR hand RT min 3V* Age/Sex: 61 / M ADM Date: 02/15/22 [employer] Other XR hand RT min 3V* Loc: [facility]XD Room: [facility] [employer] Other XR hand RT min 3V* Attending Dr: Orlando Nichole MD [employer] Other XR hand RT min 3V* Copies to: Chio Nichole MD [employer] Other XR hand RT min 3V* Ordering Provider: Chio Nichole MD [employer] Other XR hand RT min 3V* Date of Service: 02/15/22 [employer] Other XR hand RT min 3V* XR/XR hand RT min 3V*: Right hand pain [employer] Other XR hand RT min 3V* [address] film [employer] Other XR hand RT min 3V* COMPARISON:05/23/21 [employer] Other XR hand RT min 3V* HISTORY:3rd metacarp al phalangeal joint pain. 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 Mild interphalangeal degenerative changes. No acute bony findings. 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 [employer] Other XR hand RT min 3V* Impression dictated by: Matt Ferrell M.D.02/15/2022 4:53 PM [employer] Other XR hand RT min 3V* Dictation Location: [place] [address] [employer] Other XR hand RT min 3V* Transcribed By: PWS 02/15/221652 [employer] Other XR hand RT min 3V* Dictated By: Pollo Ferrell DO 02/15/221651 [employer] Other XR hand RT min 3V* Signed By: [employer] Other XR hand RT min 3V* 02/15/22 [address] [facility] [employer] Other XR hip LT min 2V(w/wo pelvis )*on 09-28-2021 XR hip LT min 2V(w/wo pelvis)* [facility] [employer] Other XR hip LT min 2V(w/wo pelvis)* [facility] [address] [place] [employer] Other XR hip LT min 2V(w/wo pelvis)* [address] [facility] [employer] Other XR hip LT min 2V(w/wo pelvis)* [place] [address] [employer] Other XR hip LT min 2V(w/wo pelvis)* XRay Report [employer] Other XR hip LT min 2V(w/wo pelvis)* Signed [employer] Other XR hip LT min 2V(w/wo pelvis)* Patient: Esme Steven MR#: [id number] [employer] Other XR hip LT min 2V(w/wo pelvis)* [address] [employer] Other XR hip LT min 2V(w/wo pelvis)* : 1960 Acct:[id number] [employer] Other XR hip LT min 2V(w/wo pelvis)* Age/Sex: 60 / M ADM Date: 09/28/21 [employer] Other XR hip LT min 2V(w/wo pelvis)* Loc: SOXD Room: [facility] [employer] Other XR hip LT min 2V(w/wo pelvis)* Attending Dr: Sarai Mendez II, MD [employer] Other XR hip LT min 2V(w/wo pelvis)* Copies to: Sarai Mendez MD [employer] Other XR hip LT min 2V(w/wo pelvis)* Ordering Provider: Sarai Mendez MD [employer] Other XR hip LT min 2V(w/wo pelvis)* Date of Service: 09/28/21 [employer] Other XR hip LT min 2V(w/wo pelvis)* XR/XR hip LT min 2V(w/wo pelvis)*: S/P total left hip arthroplasty [employer] Other XR hip LT min 2V(w/wo pelvis)* 2 views LEFT hip single view pelvisplain film [employer] Other XR hip LT min 2V(w/wo pelvis)* COMPARISON:08/17/21 [employer] Other XR hip LT min 2V(w/wo pelvis)* HISTORY:Status post LEFT total hip arthroplasty [employer] Other XR hip LT min 2V(w/wo pelvis)* No fracture, dislocation or focal soft tissue abnormality seen.No hardware failure or loosening [employer] Other XR hip LT min 2V(w/wo pelvis)* identified. [employer] Other XR hip LT min 2V(w/wo pelvis)* XR/XR hip LT min 2V(w/wo pelvis)* [employer] Other XR hip LT min 2V(w/wo pelvis)* IMPRESSION:Stable LEFT hip arthroplasty. [employer] Other XR hip LT min 2V(w/wo pelvis)* Impression dictated by: Matt Ferrell M.D.09/28/2021 1:11 PM [employer] Other XR hip LT min 2V(w/wo pelvis)* Dictation Location: [facility] [employer] Other XR hip LT min 2V(w/wo pelvis)* Transcribed By: PWS 09/28/21 [address] [employer] Other XR hip LT min 2V(w/wo pelvis)* Dictated By: Matt Ferrell DO 09/28/21 [address] [employer] Other XR hip LT min 2V(w/wo pelvis)* Signed By: [employer] Other XR hip LT min 2V(w/wo pelvis)* 09/28/21 [address] [employer] Other Laboratory - Hematology and Cell countson 06-02-2009 Lymphocytes/100 WBC (Bld) 14 % [facility] Neutrophils/100 WBC (Bld) 12 % 0 - 25 % [facility] No Panel Informationon 06-02 Clarity, SF Slightly turbid Abnormal CLEAR [facility] Color, SF Slightly bloody Abnormal YEL [facility] Macro%, SF 26 % [facility] SF 24 % [facility] [place] [address] /uL [facility] Reac%, SF 6 % [facility] Site, SF Unknown [facility] Slide Number [id number] [facility] Supernatant Clarity, SF Unable to assay. Quantity not sufficient. Abnormal CLEAR [facility] Supernatant Color, SF Unable to assay. Q uantity not sufficient. Abnormal YEL [facility] Synovial CL% 18 % [facility] Synovial Comment Count may be inaccur ate due to Clumped on chamber Cellular disintegration [facility] Synovial Pathologist Interpretation Test Not Indicated [facility] Total Nucleated Cells, SF 200 /uL [facility] Vital Signs Date Time Vital Sign Value Performing Clinician Facility 11-19-2023 14:26-0400 Body height 167.64 cm DO [employer] Work Phone: [facility] 11-19-2023 14:26-0400 Body mass index (BMI) [Ratio] 37.8 kg/m2 DO Coleman Ball Work Phone: [facility] 11-19-2023 14:040 Body weight 106.31 kg DO Coleman Ball Work Phone: [facility] 11-19-2023 14:26-0400 Diastolic blood pressure 85 mm[Hg] DO Coleman Ball Work Phone: [facility] 11-19-2023 14:26-0400 Heart rate 80 /min DO Coleman Ball Work Phone: [facility] 11-19-2023 14:040 Respiratory rate 12 /min DO Coleman Ball Work Phone: [facility] 11-19-2023 14:26040 Systolic blood pressure 134 mm[Hg] DO Coleman Ball Work Phone: [facility] 09-07-2023 13:17-0400 Body height 167.64 cm DO Coleman Ball Work Phone: [facility] 09-07-2023 13:17-0400 Body mass index (BMI) [Ratio] 38.5 kg/m2 DO Coleman Ball Work Phone: [facility] 09-07-2023 13:17-0400 Body weight 108.12 kg DO Coleman Ball Work Phone: [facility] 09-07-2023 13:17-0400 Diastolic blood pressure 91 mm[Hg] DO Coleman Ball Work Phone: [facility] 09-07-2023 13:17-0400 Heart rate 78 /min DO Coleman Ball Work Phone: [facility] 09-07-2023 13:17-0400 Respiratory rate 12 /min DO Coleman Ball Work Phone: [facility] 09-07-2023 13:17-0400 Systolic blood pressure 136 mm[Hg] DO Coleman Ball Work Phone: [facility] 09-01-2023 11:29-0400 Body temperature 97.8 [degF] DO Coleman Ball Work Phone: [facility] 09-01-2023 11:29-0400 Diastolic blood pressure 80 mm[Hg] DO Coleman Ball Work Phone: [facility] 09-01-2023 11:29-0400 Heart rate 88 /min DO Coleman Ball Work Phone: [facility] 09-01-2023 11:29-0400 Respiratory rate 16 /min DO Coleman Ball Work Phone: [facility] 09-01-2023 11:29-0400 SaO2% (BldA) [Mass fraction] 98 % DO Coleman Ball Work Phone: [facility] 09-01-2023 11:29-0400 Systolic blood pressure 140 mm[Hg] DO Coleman Ball Work Phone: [facility] 09-01-2023 05:17-0400 Body weight 113 kg DO Coleman Ball Work Phone: [facility] 08-31-2023 13:01-0400 Body height 177.8 cm DO Coleman Ball Work Phone: [facility] 08-30-2023 22:00-0400 Diastolic blood pressure 67 mm[Hg] DO Coleman Ball Work Phone: [facility] 08-30-2023 22:00-0400 Heart rate 86 /min DO Coleman Ball Work Phone: [facility] 08-30-2023 22:00-0400 Respiratory rate 21 /min DO Coleman Ball Work Phone: [facility] 08-30-2023 22:00-0400 SaO2% (BldA) [Mass fraction] 93 % DO Coleman Ball Work Phone: [facility] 08-30-2023 22:00-0400 Systolic blood pressure 107 mm[Hg] DO Coleman Ball Work Phone: [facility] 08-30-2023 20:00-0400 Body temperature 99.8 [degF] DO Coleman Ball Work Phone: [facility] 08-30-2023 16:29-0400 Body height 177.8 cm DO Coleman Ball Work Phone: [facility] 08-30-2023 16:29-0400 Body weight 105.23 kg DO Coleman Ball Work Phone: [facility] 08-16-2023 11:36-0400 Body height 179.1 cm [facility] 08-16-2023 11:36-0400 Body mass index (BMI) [Ratio] 34.52 kg/m2 [facility] 08-16-2023 11:36-0400 Body weight 110.68 kg [facility] 08-16-2023 11:36-0400 Diastolic blood pressure 74 mm[Hg] [facility] 08-16-2023 11:36-0400 Heart rate 75 /min [facility] 08-16-2023 11:36-0400 Systolic blood pressure 124 mm[Hg] [facility] 08-02-2023 09:29-0400 Inhaled oxygen flow rate 3 L/min DO Coleman Ball Work Phone: [facility] 08-02-2023 09:29-0400 SaO2% (BldA) [Mass fraction] 95 % DO Coleman Ball Work Phone: [facility] 08-01-2023 13:58-0400 Body height 177.8 cm DO Coleman Ball Work Phone: [facility] 08-01-2023 13:58-0400 Body weight 111 kg DO Coleman Ball Work Phone: [facility] 07-27-2023 11:14-0400 Diastolic blood pressure 80 mm[Hg] Antonio Mora MD Work Phone: [facility] 07-27-2023 11:14-0400 Systolic blood pressure 110 mm[Hg] Antonio Mora MD Work Phone: [facility] 07-27-2023 11:13-0400 Body height 177.8 cm Antonio Mora MD Work Phone: [facility] 07-27-2023 11:13-0400 Body mass index (BMI) [Ratio] 35.15 kg/m2 Antonio Mora MD Work Phone: [facility] 07-27-2023 11:13-0400 Body weight 111.13 kg Antonio Mora MD Work Phone: [facility] 07-27-2023 11:13-0400 Heart rate 91 /min Antonio Mora MD Work Phone: [facility] 06-29-2023 10:00-0400 Body height 177.8 cm DO Coleman Ball Work Phone: [facility] 06-29-2023 10:00-0400 Body mass index (BMI) [Ratio] 35.7 kg/m2 DO Coleman Ball Work Phone: [facility] 06-29-2023 10:00-0400 Body weight 113.11 kg DO Coleman Ball Work Phone: [facility] 06-29-2023 10:00-0400 Diastolic blood pressure 84 mm[Hg] DO Coleman Ball Work Phone: [facility] 06-29-2023 10:00-0400 Heart rate 86 /min DO Coleman Ball Work Phone: [facility] 06-29-2023 10:00-0400 Respiratory rate 12 /min DO Coleman Ball Work Phone: [facility] 06-29-2023 10:00-0400 Systolic blood pressure 119 mm[Hg] DO Coleman Ball Work Phone: [facility] 05-07-2023 11:00-0500 Body height 177.8 cm Sukhjinder Montesinos Other [facility] 05-07-2023 11:00-0500 Body mass index (BMI) [Ratio] 34.72 kg/m2 Sukhjinder Montesinos Other [facility] [employer] Other 05-07-2023 11:00-0500 Body weight 109.76 kg DO Coleman Ball Work Phone: [facility] 05-07-2023 11:00-0500 Body weight 109.77 kg Sukhjinder Montesinos Other [facility] [employer] Other 05-02-2023 10:45-0500 Body height 177.8 cm Coleman Ball Other [facility] 05-02-2023 10:45-0500 Body mass index (BMI) [Ratio] 34.72 kg/m2 Coleman Ball Other [facility] [employer] Other 05-02-2023 10:45-0500 Body weight 109.77 kg Coleman Ball Other [facility] [employer] Other 05-02-2023 10:45-0500 Body weight 109.76 kg DO Coleman Ball Work Phone: [facility] 05-02-2023 10:45-0500 Diastolic blood pressure 85 mm[Hg] Coleman Ball Other [facility] 05-02-2023 10:45-0500 Respiratory rate 12 /min Coleman Ball Other [facility] [employer] Other 05-02-2023 10:45-0500 Systolic blood pressure 122 mm[Hg] Coleman Ball Other [facility] 04-05-2023 10:15-0500 Body height 177.8 cm Coleman Ball Other [facility] 04-05-2023 10:15-0500 Body mass index (BMI) [Ratio] 34.29 kg/m2 Coleman Ball Other [facility] [employer] Other 04-05-2023 10:15-0500 Body weight 108.41 kg Coleman Ball Other [facility] [employer] Other 04-05-2023 10:15-0500 Body weight 108.4 kg DO Coleman Ball Work Phone: [facility] 04-05-2023 10:15-0500 Diastolic blood pressure 58 mm[Hg] Coleman Ball Other [facility] 04-05-2023 10:15-0500 Respiratory rate 12 /min Coleman Ball Other [facility] [employer] Other 04-05-2023 10:15-0500 Systolic blood pressure 88 mm[Hg] Coleman Ball Other [facility] 03-15-2023 11:15-0500 Body height 177.8 cm Sukhjinder Montesinos Other [facility] 03-15-2023 11:15-0500 Body mass index (BMI) [Ratio] 34.29 kg/m2 Sukhjinder Solorioley Other [employer] Other 03-15-2023 11:15-0500 Body weight 108.41 kg Sukhjinder Solorioley Other [facility] [employer] Other 03-15-2023 11:15-0500 Body weight 108.4 kg DO Coleman Ball Work Phone: [facility] 03-05-2023 13:28-0500 Body weight 106.59 kg Heladio Pineda MD Work Phone: [facility] 03-05-2023 13:28-0500 Diastolic blood pressure 81 mm[Hg] Heladio Pineda MD Work Phone: [facility] 03-05-2023 13:28-0500 Heart rate 110 /min Heladio Pineda MD Work Phone: [facility] 03-05-2023 13:28-0500 Systolic blood pressure 124 mm[Hg] Heladio Pineda MD Work Phone: [facility] 02-13-2023 15:00-0500 Diastolic blood pressure 68 mm[Hg] DO Coleman Ball Work Phone: [facility] 02-13-2023 15:00-0500 Heart rate 75 /min DO Coleman Ball Work Phone: [facility] 02-13-2023 15:00-0500 Respiratory rate 16 /min DO Coleman Ball Work Phone: [facility] 02-13-2023 15:00-0500 SaO2% (BldA) [Mass fraction] 94 % DO Coleman Ball Work Phone: [facility] 02-13-2023 15:00-0500 Systolic blood pressure 111 mm[Hg] DO Coleman Ball Work Phone: [facility] 02-13-2023 11:45-0500 Inhaled oxygen flow rate 1 L/min DO Coleman Ball Work Phone: [facility] 02-13-2023 10:48-0500 Body temperature 99.2 [degF] DO Coleman Ball Work Phone: [facility] 02-13-2023 06:59-0500 Body height 179.07 cm DO Coleman Ball Work Phone: [facility] 02-13-2023 06:59-0500 Body mass index (BMI) [Ratio] 34 kg/m2 DO Coleman Ball Work Phone: [facility] 02-13-2023 06:59-0500 Body weight 109 kg DO Coleman Ball Work Phone: [facility] 01-24-2023 15:15-0400 Body height 177.8 cm Coleman Ball Other [employer] Other 01-24-2023 15:15-0400 Body mass index (BMI) [Ratio] 34.32 kg/m2 Coleman Ball Other [employer] Other 01-24-2023 15:15-0400 Body weight 108.5 kg Coleman Ball Other [employer] Other 01-24-2023 15:15-0400 Diastolic blood pressure 69 mm[Hg] Coleman Ball Other [employer] Other 01-24-2023 15:15-0400 Respiratory rate 12 /min Coleman Ball Other [employer] Other 01-24-2023 15:15-0400 Systolic blood pressure 107 mm[Hg] Coleman Ball Other [employer] Other 01-05-2023 10:55-0400 Body height 179.1 cm Heladio Pineda MD Work Phone: [facility] 01-05-2023 10:55-0400 Body weight 107.5 kg Heladio Pineda MD Work Phone: [facility] 01-05-2023 10:55-0400 Diastolic blood pressure 74 mm[Hg] Heladio Pineda MD Work Phone: [facility] 01-05-2023 10:55-0400 Heart rate 71 /min Heladio Pineda MD Work Phone: [facility] 01-05-2023 10:55-0400 Systolic blood pressure 143 mm[Hg] Heladio Pineda MD Work Phone: [facility] 01-02-2023 10:30-0400 Body height 177.8 cm Coleman Ball Other [employer] Other 01-02-2023 10:30-0400 Body mass index (BMI) [Ratio] 34.4 kg/m2 Coleman Ball Other [employer] Other 01-02-2023 10:30-0400 Body weight 108.77 kg Coleman Ball Other [employer] Other 01-02-2023 10:30-0400 Diastolic blood pressure 78 mm[Hg] Coleman Ball Other [employer] Other 01-02-2023 10:30-0400 Respiratory rate 12 /min Coleman Ball Other [employer] Other 01-02-2023 10:30-0400 Systolic blood pressure 120 mm[Hg] Coleman Ball Other [employer] Other 11-13-2022 15:15-0400 Body height 177.8 cm Coleman Ball Other [employer] Other 11-13-2022 15:15-0400 Body mass index (BMI) [Ratio] 33.86 kg/m2 Coleman Ball Other [employer] Other 11-13-2022 15:15-0400 Body weight 107.05 kg Coleman Ball Other [employer] Other 11-13-2022 15:15-0400 Diastolic blood pressure 75 mm[Hg] Coleman Ball Other [employer] Other 11-13-2022 15:15-0400 Respiratory rate 12 /min Coleman Ball Other [employer] Other 11-13-2022 15:15-0400 Systolic blood pressure 112 mm[Hg] Coleman Ball Other [employer] Other 10-25-2022 14:45-0400 Body height 177.8 cm Coleman Ball Other [employer] Other 10-25-2022 14:45-0400 Body mass index (BMI) [Ratio] 35.24 kg/m2 Coleman Ball Other [employer] Other 10-25-2022 14:45-0400 Body weight 111.4 kg Coleman Ball Other [employer] Other 10-25-2022 14:45-0400 Diastolic blood pressure 76 mm[Hg] Coleman Ball Other [employer] Other 10-25-2022 14:45-0400 Respiratory rate 12 /min Coleman Ball Other [employer] Other 10-25-2022 14:45-0400 Systolic blood pressure 112 mm[Hg] Coleman Ball Other [employer] Other 10-11-2022 15:50-0400 Diastolic blood pressure 67 mm[Hg] DO Coleman Ball Work Phone: [facility] 10-11-2022 15:50-0400 Heart rate 75 /min DO Coleman Ball Work Phone: [facility] 10-11-2022 15:50-0400 Respiratory rate 20 /min DO Coleman Ball Work Phone: [facility] 10-11-2022 15:50-0400 SaO2% (BldA) [Mass fraction] 95 % DO Coleman Ball Work Phone: [facility] 10-11-2022 15:50-0400 Systolic blood pressure 110 mm[Hg] DO Coleman Ball Work Phone: [facility] 10-03-2022 08:30-0400 Body height 177.8 cm Coleman Ball Other [employer] Other 10-03-2022 08:30-0400 Body mass index (BMI) [Ratio] 36.01 kg/m2 Coleman Ball Other [employer] Other 10-03-2022 08:30-0400 Body weight 113.85 kg Coleman Ball Other [employer] Other 10-03-2022 08:30-0400 Diastolic blood pressure 86 mm[Hg] Coleman Ball Other [employer] Other 10-03-2022 08:30-0400 Respiratory rate 12 /min Coleman Ball Other [employer] Other 10-03-2022 08:30-0400 Systolic blood pressure 133 mm[Hg] Coleman Ball Other [employer] Other 08-09-2022 10:00-0400 Body height 177.8 cm Coleman Ball Other [employer] Other 08-09-2022 10:00-0400 Body mass index (BMI) [Ratio] 36.21 kg/m2 Coleman Ball Other [employer] Other 08-09-2022 10:00-0400 Body weight 114.49 kg Coleman Ball Other [employer] Other 08-09-2022 10:00-0400 Diastolic blood pressure 68 mm[Hg] Coleman Ball Other [employer] Other 08-09-2022 10:00-0400 SaO2% (BldA) [Mass fraction] 94 % Coleman Ball Other [employer] Other 08-09-2022 10:00-0400 Systolic blood pressure 121 mm[Hg] Coleman Ball Other [employer] Other 07-28-2022 10:30-0400 Body height 177.8 cm Coleman Ball Other [employer] Other 07-28-2022 10:30-0400 Body mass index (BMI) [Ratio] 36.67 kg/m2 Coleman Ball Other [employer] Other 07-28-2022 10:30-0400 Body weight 115.94 kg Coleman Ball Other [employer] Other 07-28-2022 10:30-0400 Diastolic blood pressure 76 mm[Hg] Coleman Ball Other [employer] Other 07-28-2022 10:30-0400 Respiratory rate 16 /min Coleman Ball Other [employer] Other 07-28-2022 10:30-0400 Systolic blood pressure 122 mm[Hg] Coleman Ball Other [employer] Other 05-23-2022 15:15-0500 Body height 177.8 cm Coleman Ball Other [employer] Other 05-23-2022 15:15-0500 Body mass index (BMI) [Ratio] 37.47 kg/m2 Coleman Ball Other [employer] Other 05-23-2022 15:15-0500 Body weight 118.48 kg Coleman Ball Other [employer] Other 05-23-2022 15:15-0500 Diastolic blood pressure 72 mm[Hg] Coleman Ball Other [employer] Other 05-23-2022 15:15-0500 Respiratory rate 12 /min Coleman Ball Other [employer] Other 05-23-2022 15:15-0500 Systolic blood pressure 122 mm[Hg] Coleman Ball Other [facility] [employer] Other 05-22-2022 14:01-0500 Body height 177.8 cm DO Coleman Ball Work Phone: [facility] 05-22-2022 14:01-0500 Body temperature 99 [degF] DO Coleman Ball Work Phone: [facility] 05-22-2022 14:01-0500 Body weight 116.95 kg DO Coleman Ball Work Phone: [facility] 05-22-2022 14:01-0500 Diastolic blood pressure 96 mm[Hg] DO Coleman Ball Work Phone: [facility] 05-22-2022 14:01-0500 Heart rate 77 /min DO Coleman Ball Work Phone: [facility] 05-22-2022 14:01-0500 Respiratory rate 18 /min DO Coleman Ball Work Phone: [facility] 05-22-2022 14:01-0500 SaO2% (BldA) [Mass fraction] 95 % DO Coleman Ball Work Phone: [facility] 05-22-2022 14:01-0500 Systolic blood pressure 163 mm[Hg] DO Coleman Ball Work Phone: [facility] 02-15-2022 15:00-0500 Body height 177.8 cm Chio Nichole Other [employer] [facility] [employer] Other 02-15-2022 15:00-0500 Body mass index (BMI) [Ratio] 34.15 kg/m2 Chio Nichole Other [employer] Other 02-15-2022 15:00-0500 Body weight 107.96 kg Chio Nichole Other [employer] Other 02-13-2022 11:00-0500 Body height 177.8 cm Jonathan Felter Other [employer] Other 09-28-2021 12:15-0400 Body height 177.8 cm Sarai Andrea II Other [employer] Other 06-17-2021 09:15-0500 Body height 177.8 cm Sarai Dunklin II Other [employer] Other 06-17-2021 09:15-0500 Body mass index (BMI) [Ratio] 34.15 kg/m2 Sarai Andrea II Other [employer] Other 06-17-2021 09:15-0500 Body weight 107.96 kg Sarai Dunklin II Other [employer] Other 02-22-2021 15:45-0500 Body height 177.8 cm Jonathan Felter Other [employer] Other 02-22-2021 15:45-0500 Body mass index (BMI) [Ratio] 34.43 kg/m2 Jonathan Felter Other [employer] Other 02-22-2021 15:45-0500 Body weight 108.86 kg Jonathan Felter Other [employer] Other 01-05-2021 10:45-0400 Body height 177.8 cm Jonathan Felter Other [employer] Other 01-05-2021 10:45-0400 Body mass index (BMI) [Ratio] 34.43 kg/m2 Jonathan Felter Other [employer] Other 01-05-2021 10:45-0400 Body weight 108.86 kg Jonathan Samano Other [facility] [employer] Other Encounters Encounter Date Encounter Type Care Provider Facility Start: 11-19-2023 End: 11-19-2023 ambulatory DO Coleman Ball Work Phone: [facility] Work Phone: Start: 11-19-2023 End: 11-19-2023 Encounter for general adult medical examination without abnormal findings DO Coleman Ball Work Phone: [facility] Start: 11-19-2023 End: 11-19-2023 Patient encounter procedure DO Coleman Brower Work Phone: [facility] Work Phone: Start: 10-18-2023 End: 10-18-2023 ambulatory [facility] Ambulatory Start: 10-02-2023 End: 10-02-2023 ambulatory DO Coleman Ball Work Phone: [facility] Work Phone: Start: 10-02-2023 End: 10-02-2023 Patient encounter procedure DO Coleman Brower Work Phone: [facility] Work Phone: Start: 09-19-2023 End: 09-19-2023 ambulatory SANTOS CABRERA Not Available Start: 09-09-2023 Telephone encounter Heladio alvarado MD Work Phone: Rheumatology Comment on above: Results Start: 09-07-2023 End: 09-07-2023 ambulatory DO Coelman Ball Work Phone: [facility] Work Phone: Start: 09-07-2023 End: 09-07-2023 Patient encounter procedure DO Coleman Ball Work Phone: [facility] Work Phone: Start: 09-07-2023 Non-patient / Non-visit DO Eris rigoberto Ball Work Phone: [facility] Work Phone: Start: 09-05-2023 Refill Heladio Pineda MD Work Phone: Rheumatology Comment on above: Refill Request Start: 09-05-2023 End: 09-05-2023 ambulatory COLEMAN BROWER Facility:[facility] Start: 09-05-2023 Non-patient / Non-visit DO Eris Brower [facility] Phone[facility] Work Phone: Start: 08-30-2023 End: 09-01-2023 Evaluation and management of inpatient DO Coleman Brower Work Phone: [facility] Work Phone: Start: 08-16-2023 End: 08-16-2023 Professional / ancillary services management Ky Navarro [facility] Comment on above: Paroxysmal atrial fi brillation (Multi) Start: 08-16-2023 End: 08-16-2023 ambulatory [facility] Ambulatory Start: 08-02-2023 End: 08-02-2023 Admission to same day surgery center DO Coleman Brower Work Phone: [facility] Work Phone: Start: 08-02-2023 End: 08-02-2023 ambulatory DO Coleman Brower Work Phone: [facility] Work Phone: Start: 07-27-2023 End: 07-27-2023 Office outpatient new 60 minutes Antonio Mora MD Work Phone: [facility] Comment on above: Persistent atrial fi brillation (Multi) (Primary Dx); Multi-vessel coronary artery stenosis; Cardiomyopathy, ischemic; Mixed hyperlipidemia; 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 (Multi); Status post aorto-coronary artery bypass graft; detention current use of anticoagulant therapy; BMI 35.0-35.9,adult Start: 07-27-2023 End: 07-27-2023 ambulatory [facility] Ambulatory Start: 07-09-2023 Telephone encounter Heladio alvarado MD Work Phone: Rheumatology Comment on above: Results Start: 07-05-2023 End: 07-05-2023 ambulatory COLEMAN BROWER Facility:[facility] Start: 07-05-2023 Non-patient / Non-visit DO Eris Brower Work Phone: [facility] Work Phone: Start: 07-05-2023 End: 07-05-2023 ambulatory COLEMAN BROWER Facility:[facility] Start: 06-30-2023 Telephone encounter Heladio alvarado MD Work Phone: Rheumatology Comment on above: Results; Orders Start: 06-29-2023 End: 06-29-2023 ambulatory DO Coleman Brower Work Phone: [facility] Work Phone: Start: 06-29-2023 End: 06-29-2023 Patient encounter procedure DO Coleman Brower Work Phone: [facility] Work Phone: Start: 06-28-2023 ambulatory UNKNOWN PROVIDER Facili [facility] Start: 06-28-2023 End: 06-28-2023 Subsequent hospital visit by physician Bone Density 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, T38.0X5A] Start: 06-20-2023 End: 06-20-2023 Patient encounter procedure DO Coleman Brower Work Phone: [facility] Work Phone: Start: 06-14-2023 Telephone encounter Kamille Rosario RN [facility] Start: 06-12-2023 End: 06-13-2023 ambulatory [facility] Start: 06-11-2023 Telephone encounter Ambar Figueroa LPN [facility] Comment on above: EP Surgery ( Pt Educ ation) Start: 06-06-2023 End: 06-06-2023 Patient encounter procedure DO Coleman Ball Work Phone: [facility] Work Phone: Start: 06-04-2023 End: 06-04-2023 ambulatory SARAI Marivel KRISTA [facility] Start: 06-04-2023 Non-patient / Non-visit DO Eris Brower Work Phone: [facility] Work Phone: Start: 06-01-2023 Telephone encounter Melinda Gomes [facility] Start: 05-21-2023 End: 05-21-2023 Patient encounter procedure DO Coleman Brower Work Phone: [facility] [place] Work Phone: Start: 05-21-2023 End: 05-21-2023 ambulatory DO Coleman Brower Work Phone: [facility] Work Phone: Start: 05-21-2023 End: 05-21-2023 Patient encounter procedure DO Coleman Brower Work Phone: [facility] [place] [facility] Start: 05-21-2023 End: 05-21-2023 ambulatory DO Coleman Brower Work Phone: [facility] Work Phone: Start: 05-21-2023 Office outpatient vi sit 15 minutes Melinda Verduzco [facility] Start: 05-21-2023 Telephone encounter Sarai Mendez II [facility] Start: 05-18-2023 End: 05-18-2023 ambulatory Coleman Brower Other [employer] Other Start: 05-18-2023 Telephone encounter Coleman Brower [facility] Start: 05-16-2023 Office outpatient vi sit 15 minutes Sarai Mendez II [facility] Start: 05-16-2023 End: 05-16-2023 Patient encounter procedure DO Coleman Ball Work Phone: [facility] Start: 05-16-2023 End: 05-16-2023 ambulatory DO Coleman Ball Work Phone: [facility] Work Phone: Start: 05-07-2023 End: 05-07-2023 ambulatory Sukhjinder Montesinos Other [employer] Other Start: 05-07-2023 Office outpatient vi sit 25 minutes Sukhjinder Montesinos [facility] Start: 05-07-2023 End: 05-07-2023 Patient encounter procedure DO Coleman Ball Work Phone: [facility] Start: 05-02-2023 End: 05-02-2023 ambulatory Coleman Ball Other [employer] Other Start: 05-02-2023 Office outpatient vi sit 15 minutes Coleman Ball [facility] Start: 05-02-2023 End: 05-02-2023 Patient encounter procedure DO Coleman Ball Work Phone: [facility] Start: 04-18-2023 End: 04-19-2023 Emergency department patient visit THERESA ALFARO [facility] Start: 04-18-2023 Telephone encounter Florence Fermin RN [facility] Start: 04-12-2023 End: 04-12-2023 ambulatory Coleman Ball Other [employer] Other Start: 04-12-2023 Office outpatient vi sit 15 minutes Coleman Ball [facility] Start: 04-12-2023 Patient encounter procedure DO Coleman Ball Work Phone: [facility] Start: 04-11-2023 End: 04-11-2023 ambulatory Sarai Mendez II Other [employer] Other Start: 04-11-2023 Postop follow up vis it related to original px Sarai Dunklin II [facility] Start: 04-06-2023 End: 04-06-2023 ambulatory Coleman Brower Other [employer] Other Start: 04-06-2023 Telephone encounter Coleman Brower FP [facility] Start: 04-05-2023 End: 04-05-2023 ambulatory Coleman Brower Other [employer] Other Start: 04-05-2023 Office outpatient vi sit 15 minutes Coleman Inocente [facility] Start: 04-05-2023 End: 04-05-2023 Patient encounter procedure DO Coleman Inocente Work Phone: [facility] Work Phone: Start: 03-29-2023 Postop follow up vis it related to original px Sarai العراقيle II [facility] Start: 03-29-2023 End: 03-29-2023 Patient encounter procedure DO Coleman Brower Work Phone: [facility] Start: 03-29-2023 End: 03-29-2023 ambulatory DO Coleman Brower Work Phone: [facility] Work Phone: Start: 03-15-2023 End: 03-15-2023 ambulatory Sukhjinder Montesinos Other [employer] Other Start: 03-15-2023 Office outpatient vi sit 25 minutes Sukhjinder Montesinos [facility] Start: 03-15-2023 Postop follow up vis it related to original px Melinda Luba [facility] Start: 03-15-2023 End: 03-15-2023 Patient encounter procedure DO Coleman Ball Work Phone: [facility] Work Phone: Start: 03-12-2023 End: 03-12-2023 ambulatory Sarai Mendez II Other [employer] Other Start: 03-12-2023 Telephone encounter Sarai Mendez II [facility] Start: 03-07-2023 End: 03-07-2023 ambulatory Coleman Brower Other [employer] Other Start: 03-07-2023 Postop follow up vis it related to original px Sarai Mendez II [facility] Start: 03-07-2023 Telephone encounter Coleman ESTRADA [facility] Comment on above: Results Start: 03-05-2023 End: 03-05-2023 ambulatory COLEMAN BROWER [employer] Other Start: 03-05-2023 End: 03-05-2023 Patient encounter procedure Heladio Pineda MD Work Phone: Rheumatology Comment on above: PMR (polymyalgia rhe umatica) (HCC) (Primary Dx); Elevated sed rate; Elevated C-reactive protein (CRP); Idiopathic chronic gout of multiple sites without tophus; Pseudogout involving multiple joints; Secondary osteoarthritis of multiple sites; Rotator cuff arthropathy of left shoulder; Pain in right hip; 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; CHENCHO positive; Chronic pain of both knees; Bilateral hand pain Start: 03-05-2023 Telephone encounter Coleman Aguillon [facility] Start: 03-02-2023 Refill Heladio Pineda MD Work Phone: Rheumatology Comment on above: Refill Request Start: 02-28-2023 End: 02-28-2023 ambulatory Melinda Verduzco Other [employer] Other Start: 02-28-2023 Postop follow up vis it related to original px Melinda Verduzco [facility] Start: 02-16-2023 End: 02-16-2023 ambulatory Sarai Mendez II Other [employer] Other Start: 02-16-2023 Telephone encounter Sarai Mendez II [facility] Start: 02-13-2023 Telephone encounter Coleman Aguillon [facility] Start: 02-13-2023 End: 02-13-2023 Admission to same day surgery center DO Coleman Ball Work Phone: [facility] [place] Start: 02-13-2023 End: 02-13-2023 ambulatory DO Coleman Ball Work Phone: [facility] Work Phone: Start: 02-12-2023 End: 02-12-2023 ambulatory Sukhjinder Montesinos Other [employer] Other Start: 02-12-2023 Telephone encounter Sukhjinder Montesinos [facility] Start: 02-06-2023 End: 02-06-2023 ambulatory Sarai Andrea II Other [employer] Other Start: 02-06-2023 Telephone encounter Sarai Dunklin II [facility] Start: 02-02-2023 (Prolonged) Prolonge d Services Sarai Andrea II [facility] Start: 02-02-2023 End: 02-02-2023 ambulatory Sarai Dunklin II Other [employer] Other Start: 01-31-2023 End: 01-31-2023 ambulatory Sarai Dunklin II Other [employer] Other Start: 01-31-2023 Patient encounter procedure Sarai Andrea II [facility] Start: 01-26-2023 End: 01-26-2023 Patient encounter procedure DO Coleman Ball Work Phone: [facility] Work Phone: Start: 01-26-2023 End: 01-26-2023 ambulatory DO Coleman Ball Work Phone: [facility] Work Phone: Start: 01-24-2023 End: 01-24-2023 ambulatory Coleman Ball Other [employer] Other Start: 01-24-2023 Office outpatient vi sit 15 minutes Coleman Brower [facility] Start: 01-10-2023 Telephone encounter Heladio alvarado MD Work Phone: Rheumatology Comment on above: Results Start: 01-05-2023 End: 01-05-2023 ambulatory COLEMAN BROWER Facility:[facility] Start: 01-05-2023 End: 01-05-2023 Patient encounter procedure [...] of left shoulder; Pain in right hip; detention current use of 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; CHENCHO positive; Bilateral hand swelling Start: 01-02-2023 End: 01-02-2023 ambulatory Coleman Brower Other [employer] Other Start: 01-02-2023 Encounter for other preprocedural examination Coleman Brower [facility] Start: 01-02-2023 Office outpatient vi sit 25 minutes Coleman Brower [facility] Start: 12-26-2022 End: 12-26-2022 ambulatory Melinda Verduzco Other [employer] Other Start: 12-26-2022 Office outpatient vi sit 15 minutes Melinda Verduzco [facility] Start: 12-20-2022 End: 12-20-2022 ambulatory Coleman Brower Other [employer] Other Start: 12-20-2022 Telephone encounter Coleman Brower [facility] Start: 12-04-2022 End: 12-04-2022 ambulatory Coleman Brower Other [employer] Other Start: 12-04-2022 Telephone encounter Coleman Brower [facility] Start: 11-23-2022 End: 11-23-2022 ambulatory Coleman Brower Other [employer] Other Start: 11-23-2022 Telephone encounter Coleman ESTRADA [facility] Start: 11-22-2022 End: 11-22-2022 ambulatory Sarai Mendez II Other [employer] Other Start: 11-22-2022 Telephone encounter Sarai Mendez II [facility] Start: 11-21-2022 End: 11-21-2022 ambulatory Melinda Verduzco Other [employer] Other Start: 11-21-2022 Office outpatient vi sit 15 minutes Melinda Verduzco [facility] Start: 11-13-2022 End: 11-13-2022 Patient encounter procedure DO Coleman Ball Work Phone: [facility] [place] Work Phone: Start: 11-13-2022 End: 11-13-2022 ambulatory DO Coleman Ball Work Phone: [facility] Work Phone: Start: 11-06-2022 End: 11-06-2022 ambulatory Coleman Brower Other [employer] Other Start: 11-06-2022 Telephone encounter Coleman Brower FP [facility] Start: 11-01-2022 (Procedure) Short Jonathan Samano [facility] Start: 11-01-2022 End: 11-01-2022 ambulatory Jonathan Samano Other [employer] Other Start: 10-26-2022 End: 10-26-2022 Patient encounter procedure DO Coleman Ball Work Phone: [facility] [place] [facility] Start: 10-26-2022 End: 10-26-2022 ambulatory DO Coleman Ball Work Phone: [facility] Work Phone: Start: 10-25-2022 End: 10-25-2022 ambulatory Coleman Ball Other [employer] Other Start: 10-25-2022 Office outpatient vi sit 15 minutes Coleman Ball [facility] Start: 10-11-2022 End: 10-11-2022 Emergency department patient visit DO Coleman Ball Work Phone: [facility]Emergency [facility] Work Phone: Start: 10-05-2022 End: 10-05-2022 ambulatory Sarai Mendez II Other [employer] Other Start: 10-05-2022 Telephone encounter Sarai Mendez II [facility] Start: 10-04-2022 End: 10-04-2022 ambulatory Coleman Ball Other [employer] Other Start: 10-04-2022 Telephone encounter Coleman Brower FP [facility] Start: 10-03-2022 End: 10-03-2022 ambulatory Coleman Ball Other [employer] Other Start: 10-03-2022 Office outpatient vi sit 15 minutes Coleman Ball [facility] Start: 10-02-2022 Telephone encounter Jonathan ESTRADA [facility] Start: 10-02-2022 End: 10-02-2022 Patient encounter procedure DO Coleman Ball Work Phone: [facility] [address] Work Phone: Start: 10-02-2022 End: 10-02-2022 ambulatory DO Coleman Ball Work Phone: [facility] Work Phone: Start: 09-27-2022 End: 09-27-2022 ambulatory Coleman Ball Other [employer] Other Start: 09-27-2022 Telephone encounter Coleman [facility] Start: 08-29-[address] COLEMAN BROWER Facili ty:[facility] Start: 08-09-2022 End: 08-09-2022 ambulatory Coleman Brower Other [employer] Other Start: 08-09-2022 Office outpatient vi sit 15 minutes Coleman Brower [facility] Start: 08-07-2022 End: 08-07-2022 ambulatory Jonathan Samano Other [employer] Other Start: 08-07-2022 Office outpatient vi sit 15 minutes Jonathan SWAIN [facility] Start: 08-02-2022 End: 08-02-2022 ambulatory DO Coleman Inocente Work Phone: [facility] Work Phone: Start: 08-02-2022 End: 08-02-2022 Patient encounter procedure DO Coleman Brower Work Phone: [facility] [place] [facility] Start: 08-01-2022 End: 08-01-2022 ambulatory Coleman Brower Other [employer] Other Start: 08-01-2022 Telephone encounter Coleman [facility] Start: 07-31-2022 (Procedure) Binta aSmano [facility] Start: 07-31-2022 End: 08-01-[address] COLEMAN BROWER [employer] Other Start: 07-31-2022 Telephone encounter Jonathan Aguillon [facility] [place] Start: 07-29-2022 End: 07-30-[address] COLEMAN BROWER Facility:[facility] Start: 07-28-2022 End: 07-28-2022 ambulatory Coleman Brower Other [employer] Other Start: 07-28-2022 Office outpatient vi sit 25 minutes Coleman Ball [facility] Start: 07-04-2022 End: 07-04-2022 ambulatory Jonathan Shrestha Other [employer] Other Start: 07-04-2022 Office outpatient vi sit 25 minutes Jonathan Shrestha [facility] [facility] Start: 07-03-2022 End: 07-03-2022 ambulatory Melinda Chasearney Other [employer] Other Start: 07-03-2022 Telephone encounter Melinda Verduzco [facility] Start: 06-29-2022 End: 06-29-2022 ambulatory DO Coleman Inocente Work Phone: [facility] Work Phone: Start: 06-29-2022 End: 06-29-2022 Patient encounter procedure DO Coleman Inocente Work Phone: [facility] [place] Work Phone: Start: 06-09-2022 End: 06-09-2022 ambulatory Coleman Brower Other [employer] Other Start: 06-09-2022 Telephone encounter Coleman Inocente [facility] Start: 06-05-2022 End: 06-05-2022 ambulatory Jonathan Samano Other [employer] Other Start: 06-05-2022 Office outpatient vi sit 15 minutes Jonathan Samano [facility] [place] Start: 05-29-2022 End: 05-29-2022 ambulatory Coleman Ball Other [employer] Other Start: 05-29-2022 Office outpatient vi sit 10 minutes Coleman Ball [facility] Start: 05-23-2022 End: 05-23-2022 ambulatory Coleman Ball Other [employer] Other Start: 05-23-2022 Office outpatient vi sit 15 minutes Coleman Ball [facility] Start: 05-23-2022 Telephone encounter Coleman Brower FP G [facility] Start: 05-22-2022 End: 05-22-2022 Emergency department patient visit DO Coleman Brower Work Phone: [facility] Work Phone: Start: 05-01-2022 (Procedure) Binta Samano [facility] Start: 05-01-2022 End: 05-01-2022 ambulatory Jonathan Vieiraer Other [employer] Other Start: 04-24-2022 (Procedure) Binta Samano [facility] Start: 04-24-2022 End: 04-24-2022 ambulatory Jonathan Vieiraer Other [employer] Other Start: 04-12-2022 Office outpatient vi sit 25 minutes Jonathan Vieiraer [facility] [place] Start: 04-12-2022 End: 04-12-2022 ambulatory DO Coleman Brower Work Phone: [facility] Work Phone: Start: 04-12-2022 End: 04-12-2022 Patient encounter procedure DO Coleman Brower Work Phone: [facility] [place] [facility] Start: 03-20-2022 (Procedure) Binta Samano [facility] Start: 03-20-2022 End: 03-20-2022 ambulatory Jonathan Vieiraer Other [employer] Other Start: 03-08-2022 End: 03-08-2022 ambulatory Jonathan Vieiraer Other [employer] Other Start: 03-08-2022 Office outpatient vi sit 25 minutes Jonathan Vieiraer [facility] [place] Start: 02-22-2022 (Procedure) Binta Samano [facility] Start: 02-22-2022 End: 02-22-2022 ambulatory Jonathan Vieiraer Other [employer] Other Start: 02-15-2022 Office outpatient ne w 45 minutes Chio Nichole [facility] Start: 02-15-2022 End: 02-15-2022 ambulatory DO Coleman Brower Work Phone: [facility] Work Phone: Start: 02-15-2022 End: 02-15-2022 Patient encounter procedure DO Coleman Brower Work Phone: [facility] [place] [facility] Start: 02-13-2022 End: 02-13-2022 ambulatory Jonathan Samano Other [employer] Other Start: 02-13-2022 Office outpatient vi sit 25 minutes Jonathan Samano [facility] [place] Start: 12-26-2021 End: 12-26-2021 Patient encounter procedure DO Coleman Brower Work Phone: [facility] [place] Start: 11-30-2021 End: 12-21-[address] COLEMAN BROWER Facility: Start: 11-28-2021 Pre-procedure evalua tion check Jonathan Samano Other [employer] Other Start: 09-28-2021 End: 09-28-2021 ambulatory Sarai Andrea II Other [employer] Other Start: 09-28-2021 Postop follow up vis it related to original px Sarai Dunklin II [facility] Start: 09-28-2021 End: 09-28-2021 Patient encounter procedure DO Coleman Brower Work Phone: [facility] [place] [facility] Start: 09-12-2021 End: 09-12-2021 ambulatory Melinda Verduzco Other [employer] Other Start: 09-12-2021 Office outpatient vi sit 15 minutes Melinda Verduzco [facility] Start: 08-17-2021 (Post-Op) Post-Op Sarai Dunklin II [facility] Start: 08-17-2021 End: 08-17-2021 ambulatory Sarai Andrea II Other [employer] Other Start: 07-20-2021 (Post-Op) Post-Op Sarai Andrea II [facility] Start: 07-20-2021 End: 07-20-2021 ambulatory Sarai Dunklin II Other [employer] Other Start: 06-24-2021 (Prolonged) Prolonge d Services Sarai Dunklin II [facility] Start: 06-24-2021 End: 06-24-2021 ambulatory Sarai Dunklin II Other [employer] Other Start: 06-17-2021 End: 06-17-2021 ambulatory Sarai Dunklin II Other [employer] Other Start: 06-17-2021 Office outpatient vi sit 25 minutes Sarai Dunklin II [facility] Start: 05-27-2021 Adult health examination Joselyn Samano Other [employer] Other Start: 03-25-2021 End: 03-25-2021 ambulatory Sarai Dunklin II Other [employer] Other Start: 03-25-2021 Telephone encounter Sarai Dunklin II [facility] Start: 03-24-2021 End: 03-24-2021 ambulatory Jonathan Samano Other [employer] Other Start: 03-24-2021 Telephone encounter Jonathan Samano [facility] Start: 02-22-2021 End: 02-22-2021 ambulatory Jonathan Samano Other [employer] Other Start: 02-22-2021 Office outpatient vi sit 25 minutes Jonathan Samano [facility] [place] Start: 02-15-2021 (Procedure) Short Jonathan Samano [facility] Start: 02-15-2021 End: 02-15-2021 ambulatory Jonathan Samano Other [facility] [employer] Other Start: 01-20-2021 Telephone encounter Jonathan Darieldread Aguillon [facility] Start: 01-05-2021 Office outpatient vi sit 15 minutes Jonathan Samano [facility] [place] Start: 06-01-2009 ambulatory Genie rosas MD Work Phone: Radiology Start: 06-01-2009 End: 06-01-2009 Patient encounter procedure Genie Hdez MD Work Phone: [facility] Procedures Date Procedure Procedure Detail Performing Clinician Start: 08-30-2023 CT angiography of ne ck vessels DO [employer] Work Phone: Start: 08-30-2023 Computed tomography of abdomen and pelvis with contrast DO [employer] Phone: Start: 08-30-2023 CT angiography of head DO [employer] Work Phone: Start: 08-30-2023 CT of head without contrast DO [employer] Phone: Start: 08-30-2023 Plain chest X-ray DO Be njamin [employer] Work Phone: Start: 08-30-2023 Bacterial ID (NA Mul tiplex Assay) DO [employer] Work Phone: Start: 08-30-2023 Blood culture for bacteria, including anaerobic screen DO [employer] Phone: Start: 08-30-2023 Respiratory Panel (PCR) DO [employer] Work Phone: Start: 08-30-2023 SARS-CoV-2, Influenz a & RSV (PCR) DO [employer] Phone: Start: 08-16-2023 ECG 12-LEAD MOURHAF TR [...] for Exam Primary osteoarthritis 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;Other care home (current Result Comment: PERF ORMED BY: [place] [id number] [place] [address] PATHOLOGIST STRAP MACHINE OPERATOR [employer] ALAYNA CAPONE M.D. Start: 10-26-2022 Plain X-ray 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 DO [employer] Work Phone: Start: 10-11-2022 CT of head without contrast DO [employer] Work Phone: Start: 08-02-2022 Plain X-ray of right shoulder DO [employer] Work Phone: Start: 08-02-2022 Plain X-ray of left hip DO [employer] Work Phone: Start: 07-29-[address] TABARES IN [employer] Comment on above: Performed By: #### P [facility] #### [facility] [address] [place] [address] Dr. Tracy Hubbard Start: 06-29-2022 MRI of left shoulder DO [employer] Work Phone: Start: 05-22-2022 Plain X-ray of left elbow DO [employer] Work Phone: Start: 05-22-2022 Plain X-ray of left shoulder DO [employer] Work Phone: Start: 04-12-2022 Plain X-ray 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 DO [employer] Work Phone: Start: 02-15-2022 Plain X-ray of right hand DO [employer] Work Phone: Start: 12-26-2021 XR pre/post mri xray DO [employer] Work Phone: Start: 12-26-2021 MRI of cervical spin e without contrast DO [employer] Work Phone: Start: 09-28-2021 Plain X-ray of left hip DO [employer] Work Phone: Start: 12-11-2014 Screening for malign [...] DTaP,Tdap and Td Vaccines (2 - Tdap) [facility] Start: 05-14-2030 DTaP/Tdap/Td Vaccine s (2 - Tdap) DTaP/Tdap/Td Vaccines (2 - Tdap) [facility] Start: 05-14-2030 Urine microalbumin profile DTaP,Tdap,Td Vaccine (2 - Tdap) [facility] Start: 07-30-2027 Prostate Cancer Scre ening Discussion Prostate Cancer Screening Discussion [facility] Start: 07-30-2027 Prostate specific an tigen measurement Prostate Cancer Screening Discussion [facility] Start: 06-11-2026 Diabetes Screening Diabetes Screenin g [facility] Start: 01-05-2026 Diabetes Screening Diabetes Screenin g [facility] Start: 06-27-2025 Screening for osteoporosis Bone Density Scan [facility] Start: 06-04-2024 Adult BMI Screening Adult BMI Screen ing [facility] Start: 06-04-2024 Tobacco Screening Tobacco Screening [facility] Start: 04-18-2024 Tobacco Screening Tobacco Screening [facility] Start: 03-17-2024 End: 03-17-2024 Patient encounter procedure 03/17/2024 9:00 AM EST Office Visit Rheumatology [address] [place] [address] Heladio Pineda MD [address] [facility] [place] [address] for PMR/osteoarthritis/gou t fu OV 6months Rheumatology Comment on above: for PMR/osteoarthrit is/gout fu OV 6months Start: 01-03-2024 Adult BMI Screening Adult BMI Screen ing [facility] Start: 12-09-2023 Influenza vaccination Influenz a Vaccine (Season Ended) [facility] Start: 10-18-2023 End: 10-18-2023 Patient encounter procedure 10/18/2023 2:40 PM EDT Office Visit [facility] [address] [facility] [address] [address] [place] [address] Antonio Mora MD [address] [place] [address] [facility] Start: 10-08-2023 End: 07-08-2024 25-hydroxyvitamin D3 [Mass/volume] in Serum or Plasma VITAMIN D 25 HYDROXY Lab Routine Vitamin D deficiency Expected: 10/08/2023 (Approximate), Expires: 07/08/2024 [facility] Work Phone: Comment on above: Expected: 10/08/2023 (Approximate), Expires: 07/08/2024 Start: 10-08-2023 End: 01-07-2024 Urate [Mass/volume] in Serum or Plasma URIC ACID Lab Routine Hyperuricemia Idiopathic chronic gout of multiple sites without tophus Expected: 10/08/2023 (Approximate), Expires: 01/07/2024 [facility] Work Phone: Comment on above: Expected: 10/08/2023 (Approximate), Expires: 01/07/2024 Start: 10-03-2023 End: 10-03-2023 Patient encounter procedure 10/03/2023 9:30 AM EDT Office Visit [facility] [address] [place] [address] Travis Lucas MD [address] [place] [address] [facility] Start: 09-01-2023 [facility] Start: 08-30-2023 [facility] Start: 08-30-2023 Respiratory pathogen s DNA and RNA panel - Nasopharynx by ROSIE with non-probe detection [facility] Start: 08-30-2023 Hospital admission [facility] Start: 08-30-2023 [facility] Start: 08-30-2023 Bacteria identified in Blood by Culture Blood Culture [facility] Start: 08-30-2023 Blood culture for bacteria, including anaerobic screen Blood Culture [facility] Start: 08-16-2023 End: 08-16-2023 Professional / ancillary services management 08/16/2023 10:00 AM EDT Ancillary Procedure [facility] [address] [place] [address] [facility] Start: 08-10-2023 End: 07-26-2024 ECG 12 Lead ECG 12 Lead ECG Routine 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 (Multi) Expected: 08/10/2023 (Approximate), Expires: 07/26/2024 [facility] Work Phone: Comment on above: Expected: 08/10/2023 (Approximate), Expires: 07/26/2024 Start: 08-08-2023 End: 07-08-2024 C reactive protein [Mass/volume] in Serum or Plasma C-REACTIVE PROTEIN (CRP) Lab Routine Elevated sed rate Elevated C-reactive protein (CRP) Expected: 08/08/2023 (Approximate), Expires: 07/08/2024 [facility] Work Phone: Comment on above: Expected: 08/08/2023 (Approximate), Expires: 07/08/2024 Start: 08-08-2023 End: 07-08-2024 Erythrocyte sedimentation rate SED RATE WESTERGREN Lab Routine Elevated sed rate Elevated C-reactive protein (CRP) Expected: 08/08/2023 (Approximate), Expires: 07/08/2024 [facility] Work Phone: Comment on above: Expected: 08/08/2023 (Approximate), Expires: 07/08/2024 Start: 08-02-2023 [facility] Start: 07-27-2023 End: 07-26-2025 Cardioversion External Cardioversion External Cardiac Services Routine 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 (Multi) detention current use of anticoagulant therapy Expected: 07/27/2023 (Approximate), Expires: 07/26/2025 [facility] Work Phone: Comment on above: Expected: 07/27/2023 (Approximate), Expires: 07/26/2025 Start: 06-14-2023 End: 06-14-2023 Patient encounter procedure 06/14/2023 1:00 PM EST Appointment [facility] [address] [place] [address] Chhaya Whatley MD [address] [place] [address] [facility] Start: 06-04-2023 End: 06-04-2023 Patient encounter procedure 06/04/2023 2:15 PM EST Office Visit [facility] [address] [place] [id number] Sarai Velasco MD [address] [place] [address] [facility] Start: 05-21-2023 Duplex scan of lower limb veins US venous duplex LE [facility] Start: 04-12-2023 End: 01-11-2024 25-hydroxyvitamin D3 [Mass/volume] in Serum or Plasma VITAMIN D 25 HYDROXY Lab Routine Vitamin D deficiency Expected: 04/12/2023 (Approximate), Expires: 01/11/2024 [facility] Work Phone: Comment on above: Expected: 04/12/2023 (Approximate), Expires: 01/11/2024 Start: 04-12-2023 End: 01-11-2024 Cobalamin (Vitamin B12) [Mass/volume] in Serum or Plasma VITAMIN B12 BLOOD Lab Routine Vitamin B12 deficiency Expected: 04/12/2023 (Approximate), Expires: 01/11/2024 [facility] Work Phone: Comment on above: Expected: 04/12/2023 (Approximate), Expires: 01/11/2024 Start: 04-09-2023 Behavioral Health Screening Behavioral Health Screening [facility] Start: 04-09-2023 Depression Assessment Depression Ass essment [facility] Start: 04-06-2023 End: 03-07-2024 C reactive protein [Mass/volume] in Serum or Plasma C-REACTIVE PROTEIN (CRP) Lab Routine PMR (polymyalgia rheumatica) (HCC) Elevated sed rate Elevated C-reactive protein (CRP) Expected: 04/06/2023 (Approximate), Expires: 03/07/2024 [facility] Work Phone: Comment on above: Expected: 04/06/2023 (Approximate), Expires: 03/07/2024 Start: 04-06-2023 End: 03-07-2024 Erythrocyte sedimentation rate SED RATE WESTERGREN Lab Routine PMR (polymyalgia rheumatica) (HCC) Elevated sed rate Elevated C-reactive protein (CRP) Expected: 04/06/2023 (Approximate), Expires: 03/07/2024 [facility] Work Phone: Comment on above: Expected: 04/06/2023 (Approximate), Expires: 03/07/2024 Start: 02-13-2023 End: 02-13-2023 [facility] Start: 02-13-2023 Physical therapy procedure [facility] Start: 02-10-2023 End: 01-11-2024 C reactive protein [Mass/volume] in Serum or Plasma C-REACTIVE PROTEIN (CRP) Lab Routine Elevated sed rate Elevated C-reactive protein (CRP) Expected: 02/10/2023 (Approximate), Expires: 01/11/2024 [facility] Work Phone: Comment on above: Expected: 02/10/2023 (Approximate), Expires: 01/11/2024 Start: 02-10-2023 End: 01-11-2024 Erythrocyte sedimentation rate SED RATE WESTERGREN Lab Routine Elevated sed rate Elevated C-reactive protein (CRP) Expected: 02/10/2023 (Approximate), Expires: 01/11/2024 [facility] Work Phone: Comment on above: Expected: 02/10/2023 (Approximate), Expires: 01/11/2024 Start: 01-29-2023 [facility] Start: 01-26-2023 [facility] Start: 01-05-2023 End: 01-06-2024 25-hydroxyvitamin D3 [Mass/volume] in Serum or Plasma [facility] Work Phone: Comment on above: Expected: 01/05/2023 (Approximate), Expires: 01/06/2024 Start: 01-05-2023 End: 03-07-2023 Aldolase [Enzymatic activity/volume] in Serum or Plasma [facility] Work Phone: Comment on above: Expected: 01/05/2023 (Approximate), Expires: 03/07/2023 Start: 01-05-2023 End: 01-06-2024 CHENCHO BY IFA WITH REFLEX [facility] Work Phone: Comment on above: Expected: 01/05/2023 (Approximate), Expires: 01/06/2024 Start: 01-05-2023 End: 01-06-2024 BLOOD TB SCREEN [facility] Work Phone: Comment on above: Expected: 01/05/2023 (Approximate), Expires: 01/06/2024 Start: 01-05-2023 End: 01-06-2024 Chronic hepatitis differentiation between hepatitis B and C virus panel - Serum or Plasma [facility] Work Phone: Comment on above: Expected: 01/05/2023 (Approximate), Expires: 01/06/2024 Start: 01-05-2023 End: 01-06-2024 Cyclic citrullinated peptide IgG Ab [Units/volume] in Serum or Plasma [facility] Work Phone: Comment on above: Expected: 01/05/2023 (Approximate), Expires: 01/06/2024 Start: 12-08-2022 Covid-19 Vaccine () Covid-19 Vaccine () [facility] Start: 12-08-2022 Influenza vaccination [facility] Start: 10-02-2022 Hemolytic complement CH50 level [facility] Start: 10-02-2022 [facility] Start: 08-02-2022 Plain X-ray of right shoulder XR shoulder RT min 2V* [facility] Start: 08-02-2022 Plain X-ray of left hip XR hip LT min 2V(w/wo pelvis)* [facility] Start: 04-09-2022 Depression Assessment Depression Ass essment [facility] Start: 06-06-2021 Covid-19 Vaccine (4 - Pfizer series) Covid-19 Vaccine (4 - Pfizer series) [facility] Start: 12-08-2020 Influenza vaccination INFLUENZ A (Season Ended) [facility] Start: 2019 RSV patient s and/or patients aged 60+ years (1 - 1-dose 60+ series) RSV patients and/or patients aged 60+ years (1 - 1-dose 60+ series) [facility] Start: 2019 RSV Vaccine (1 - 1-d ose 60+ series) RSV Vaccine (1 - 1-dose 60+ series) [facility] Start: 10-29-2016 DIABETES SCREEN DIABETES SCREEN [facility] Start: 12-16-2014 PROSTATE CANCER SCRE ENING DISCUSSION PROSTATE CANCER SCREENING DISCUSSION [facility] Start: 12-16-2009 Administration of varicella zoster vaccine Zoster (Shingles) Vaccine (1 of 2) Stealth10 Wanderable [facility] Start: 12-16-2009 Screening for malign ant neoplasm of colon [facility] Start: 12-16-2009 SHINGRIX VACCINE (1 of 2) TORRES GRIX VACCINE (1 of 2) [facility] Start: 12-16-2009 Zoster Vaccines (1 of 2) Zoste r Vaccines (1 of 2) [facility] Start: 12-16-2004 Cologuard (FIT-DNA) Cologuard (FIT-D NA) [facility] Start: 12-16-2004 Colonoscopy Colonoscopy [facility] Start: 12-16-2004 Colorectal Cancer Screening Colorectal Cancer Screening [facility] Start: 12-16-[address] COLONOGRAPHY [facility] Start: 12-16-2004 Fecal Occult Blood Fecal Occult Bloo d [facility] Start: 12-16-2004 Screening for malign ant neoplasm of colon [facility] Start: 12-16-2004 SIGMOIDOSCOPY SIGMOIDOSCOPY [facility] Start: 12-16-1994 Lipid 1996 panel - S ursula or Plasma Lipid Screening [facility] Start: 12-16-1994 Lipid panel Lipid Screening [facility] Start: 12-16-1994 LIPID SCREEN LIPID SCREEN [facility] Start: 12-16-1978 Urine microalbumin profile [facility] Start: 12-16-1977 Adult BMI Follow Up Plan Adult BMI Follow Up Plan [facility] Start: 12-16-1977 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 Annual PCP Team Chronic Disease Visit [facility] Start: 12-16-1977 Diabetes mellitus screening Diabetes Screening [facility] Start: 12-16-1977 Hepatitis B surface antibody level LDL Cholesterol [facility] Start: 12-16-1977 Hepatitis C screening Hepatitis C Sc reening [facility] Start: 12-16-1977 HIV SCREENING HIV SCREENING [facility] Start: 12-16-1977 HIV screening HIV Screening [facility] Start: 1971 Adult depression screening assessment DEPRESSION SCREENING [facility] Start: 1971 COVID-19 VACCINE (1) COVID-19 VACCIN E (1) [facility] Start: 12-16-1965 Pneumococcal Vaccine : Pediatrics (0 to 5 Years) and At-Risk Patients (6 to 64 Years) (1 of 2 - PCV) Pneumococcal Vaccine: Pediatrics (0 to 5 Years) and At-Risk Patients (6 to 64 Years) (1 of 2 - PCV) [facility] Start: 12-16-1960 MMR Vaccines (1 of 1 - Standard series) MMR Vaccines (1 of 1 - Standard series) [facility] Start: 1959 HIV screening HIV Screening [facility] Start: 1959 Lipid panel Lipid Panel [facility] Start: 1959 Medicare Annual Well ness Visit Medicare Annual Wellness Visit (AWV) [facility] Start: 1959 Screening for malign ant neoplasm of colon [facility] Start: 1959 Thyroid stimulating hormone measurement TSH Level [facility] Complement C3 [Mass/volume] in Serum or Plasma [facility] Complement C4 [Mass/volume] in Serum or Plasma [facility] End: 02-04-2024 DXA-AXIAL SKELETON DXA-AXIAL SKELETON Radiology Routine Steroid-induced osteoporosis 1 Occurrences starting 01/05/2023 until 02/04/2024 [facility] Work Phone: Comment on above: 1 Occurrences starti 01/05/2023 until 02/04/2024 End: 02-04-2024 DXA-FOREARM SKELETON DXA-FOREARM SKELETON Radiology Routine Steroid-induced osteoporosis 1 Occurrences starting 01/05/2023 until 02/04/2024 [facility] Work Phone: Comment on above: 1 Occurrences starti ng 01/05/2023 until 02/04/2024 Patient Education [facility] Work Phone: Patient referral [facility] Work Phone: Corona extractable nu clear Ab [Units/volume] in Serum [facility] SYNOVIAL FLUID CRYST ALS B/O SYNOVIAL FLUID CRYSTALS B/O Lab Routine Swelling of Knee Joint Ordered: 06/01/2009 [facility] Comment on above: Ordered: 06/01/2009 [facility] Immunizations Immunization Date Immunization Notes Care Provider Cristhian [facility] 04-05-2023 influenza, injectabl e, quadrivalent, preservative free Coleman Brower Other [facility] 02-06-2022 influenza, injectabl e, quadrivalent, contains preservative Sarai Mendez II Other [employer] Other 02-06-2022 influenza virus vaccine, split virus (incl. purified surface antigen) Jonathan Samano Other [facility] 02-06-2022 influenza, injectabl e, quadrivalent, preservative free DO [employer] Work Phone: [facility] 02-06-2022 influenza virus vaccine, unspecified formulation Heladio Pineda MD Work Phone: [facility] 04-11-2021 COVID-19 mRNA, Comirnaty (Pfizer) DO [employer] Work Phone: [facility] 01-18-2021 influenza virus vaccine, split virus (incl. purified surface antigen) Jonathan Samano Other [employer] Other 01-18-2021 Seasonal trivalent influenza vaccine, adjuvanted, preservative free [facility] 01-18-2021 influenza virus vaccine, unspecified formulation Heladio Pineda MD Work Phone: [facility] 06-25-2020 COVID-19 mRNA, Comirnaty (Pfizer) DO [employer] Work Phone: [facility] 06-15-2020 COVID-19 mRNA, Comirnaty (Pfizer) DO [employer] Work Phone: [facility] 06-04-2020 COVID-19 mRNA, Comirnaty (Pfizer) DO [employer] Work Phone: [facility] 05-14-2020 diphtheria, tetanus toxoids and acellular pertussis vaccine, unspecified formulation Jonathan Samano Other [facility] 05-07-2020 Kenalog -40 mg Jonathan Vieiraer Other [employer] Other 01-13-2020 influenza virus vaccine, split virus (incl. purified surface antigen) Jonathan Samano Other [facility] 01-13-2020 influenza virus vaccine, unspecified formulation DO [employer] Work Phone: [facility] 11-03-2019 Kenalog -40 mg Jonathan Vieiraer Other [employer] Other 05-19-2019 Kenalog -40 mg Jonathan Felter Other [employer] Other 01-02-2019 influenza virus vaccine, split virus (incl. purified surface antigen) Jonathan Samano Other [facility] 01-02-2019 influenza virus vaccine, unspecified formulation DO [employer] Work Phone: [facility] 04-08-2018 Kenalog -40 mg Jonathan Vieiraer Other [employer] Other 01-21-2018 influenza virus vaccine, split virus (incl. purified surface antigen) Jonathan Samano Other [employer] Other 01-21-2018 influenza virus vaccine, unspecified formulation DO Coleman Brower Work Phone: [facility] 01-21-2018 Influenza, injectabl e, Madin Nolvia Canine Kidney, quadrivalent with preservative [facility] 04-16-2017 Kenalog -40 mg Jonathan Samano Other [employer] Other 05-23-2016 Kenalog -40 mg Jonathan Samano Other [employer] Other Payers Date Payer Category Payer Medicare [id number] 2022 Self-pay [id number] 2022 Medicare [id number] 1959 Unknown [id number] 2.16.840.1.835898.3.579.2.593 1959 Unknown [id number] 2.16.840.1.896702.3.579.2.593 1959 Unknown [id number] 2.16.840.1.788693.3.579.2.593 1959 Unknown [id number] 2.16.840.1.837504.3.579.2.593 1959 Unknown [id number] 2.16.840.1.273081.3.579.2.1286 1959 Unknown [id number] 2.16.840.1.191100.3.579.2.128 1959 Unknown [id number] 2.16.840.1.059279.3.579.2.1286 1959 Unknown [id number] 2.16.840.1.271014.3.579.2.1286 1959 Unknown [id number] 2.840.1.195531.3.579.2.1259 1959 Unknown [id number] 2.840.1.994076.3.579.2.1244 1959 Unknown [id number] 2.840.1.437915.3.579.2.1244 1959 Unknown [id number] 2.840.1.989561.3.579.2.1244 1960 Medicare [id number] . [id number] 1959 Private Health Insurance [facility] [id number] [facility] Medicare Medicare [id number] Medicare [employer] [facility] P[facility] [id number] Unknown [place] BC/BS [id number] Unknown [id number] .840.1.662488.3.579.2.531 Unknown [id number] .840.1.599634.3.579.2.531 Unknown [id number] .840.1.683110.3.579.2.531 Unknown [id number] 2.840.1.595939.3.579.2.531 Unknown [id number] .840.1.616886.3.579.2.531 Unknown [id number] .840.1.453029.3.579.2.531 Unknown [id number] 2.840.1.251928.3.579.2.531 Unknown [id number] .840.1.454752.3.579.2.531 Unknown [id number] 2.16.840.1.360144.3.579.2.531 Unknown [id number] 2.16.840.1.253484.3.579.2.531 Unknown [id number] 2.16.840.1.425547.3.579.2.531 Unknown [id number] 2.16.840.1.024502.3.579.2.531 Social History Date Type Detail Facility Tobacco smoking stat us NHIS Unknown if ever smoked [facility] Start: 1960 Sex Assigned At Not on file [facility] Start: 01-05-2023 End: 07-05-2023 [facility] Start: 07-04-2021 End: 08-30-2023 Tobacco smoking status NHIS Never smoked tobacco (finding) [facility] Start: 1960 Sex Assigned At Male [facility] Start: 01-05-2023 End: 07-05-2023 Alcohol intake Current drinker of alcohol (finding) [facility] Start: 01-05-2023 End: 07-05-2023 Alcohol intake [employer] National Score (1-100), lower number is lower risk [facility] Start: 01-02-2023 End: 07-27-2023 Tobacco use and exposure Smokeless tobacco [facility] Start: 07-17-2023 End: 08-16-2023 Exposure to SARS-CoV-2 (event) Not sure [facility] Medical Equipment Procedure Code Equipment Code Equipment Origin al Text Equipment Identifier Dates Arthroplasty, hip, total, anterior approach Acetabular shell ()[id number] FDA Start: 07-04-2021 Arthroplasty, hip, total, anterior approach Ceramic femoral head prosthesis ()[id number] FDA Start: 07-04-2021 Arthroplasty, hip, total, anterior approach Coated hip femur prosthesis, modular ()[id number] FDA Start: 07-04-2021 Arthroplasty, hip, total, anterior approach Non-constrained polyethylene acetabular liner ()[id number] FDA Start: 07-04-2021 Arthroplasty, hip, total, anterior approach Acetabular shell ()[id number] FDA Start: 02-13-2023 Arthroplasty, hip, total, anterior approach Ceramic femoral head prosthesis ()[id number] FDA Start: 02-13-2023 Arthroplasty, hip, total, anterior approach Coated hip femur prosthesis, modular ()[id number] FDA Start: 02-13-2023 Arthroplasty, hip, total, anterior approach Non-constrained polyethylene acetabular liner ()[id number] FDA Start: 02-13-2023 Goals Date Patient Goal Desired Activity /State Functional Status Date Assessment Result Facility 09-01-2023 Functional status Patient at Baseline [facility] Work Phone: 08-30-2023 Functional status Disability [facility] Patient at Baseline [facility] Work Phone: Mental Status Date Assessment Result Facility 09-01-2023 Cognitive function Cognitive [facility] Patient at Baseline [facility] Work Phone: Clinical Notes 01-05-2021 to 09-10-2023 [...] changes to his medication. Precious Hartman MA [facility] 09-10-2023 Miscellaneous Notes Formattin g of this [...] esr 9, crp<0.3; documented in this encounter [facility] 09-09-2023 Telephone encount er Note Please Call patient if MyChart note not read to review results/released to My Chart if tests completed at [facility]: Normal labs and no inflammation.. Recheck nonfasting [...] chronic Afib. 03/05/23 normal esr 9, crp<0.3; [facility] 09-05-2023 Telephone encount er Note Spoke to pt aware of med sent. [facility] 09-05-2023 Miscellaneous Notes Formattin g of this [...] - This Specialty 07/05/2023 PMR (polymyalgia rheumatica) ([facility]) Rheumatology Heladio Pineda MD 03/05/2023 PMR (polymyalgia rheumatica) ([facility]) Rheumatology Heladio Pineda MD 01/05/2023 PMR (polymyalgia rheumatica) ([facility]) Rheumatology Heladio Pineda MD Upcoming Rheumatology Appointments - Next 365 Days Visit Type Date Time Department [facility] 03/17/2024 9:00 AM [facility] CBC: Latest Ref Rng & [...] Vitamin D deficiency documented in this encounter [facility] 09-05-2023 Telephone encount er Note Please call [...] above. Please process accordingly. Heladio Pineda MD [facility] 09-05-2023 Telephone encount er Note Spoke to pt he states he has been having muscle pain lately and will like to take the medrol dose pack for his pain. [facility] 09-05-2023 Telephone encount er Note Please call patient Inquire if patient still taking medrol Is he have any pain symptoms, PMR symptoms? Per last note patient was off medrol Thank you. [facility] 09-05-2023 Telephone encount er Note Images from the original note were not included. Most recent Rheumatology visit: 07/05/2023 (with Heladio Pineda) Rheumatology Care Team: None on file Recent Office Visits - This Specialty 07/05/2023 PMR (polymyalgia rheumatica) ([facility]) Rheumatology Heladio Pineda MD 03/05/2023 PMR (polymyalgia rheumatica) ([facility]) Rheumatology Heladio Pineda MD 01/05/2023 PMR (polymyalgia rheumatica) ([facility]) Rheumatology Heladio Pineda MD Upcoming Rheumatology Appointments - Next 365 Days Visit Type Date Time Department [facility] 03/17/2024 9:00 AM [facility] CBC: Latest Ref Rng & [...] WESTERGREN [SQWSR] 08/08/23 07/08/24 07/09/23 Auth. provider: eHladio Pineda MD Assoc. diagnoses: Elevated sed rate, Elevated C-reactive protein (CRP) C-REACTIVE PROTEIN (CRP) [SQCRP] 08/08/23 07/08/24 07/09/23 Auth. provider: Heladio Pineda MD Assoc. diagnoses: Elevated sed rate, Elevated C-reactive protein (CRP) VITAMIN D 25 HYDROXY [SQVITD] 10/08/23 07/08/24 07/09/23 Auth. provider: Heladio Pineda MD Assoc. diagnoses: Vitamin D deficiency [facility] 08-31-2023 Progress note Note Date/Time August 31, 2023 10:54am [facility] [address] [place] [address] Hospitalist Progress Note Signed with Elida Patient: Esme Steven MR#: [id number] : 1960 Acct:[id number] Age/Sex: 62 / M Adm Date: 4 Loc: Room: [address] [place] [address] Type: ADM IN Attending Dr: Sally Alex [...] Syringe IV-PUSH 08/30/24 05:59 Not Given [facility] A&P - Hospitalist Assessment/Plan (1) Acute diverticulitis: [...] <Electronically signed by DO RADHA Zavala> 08/31/23 1055 [facility] Work Phone: 1(632) 815-237605-24-2024 History and physical note Author Elliott Talley [facility] August 30, 2023 11:34pm Note Date/Time August 30, 2023 11:04 pm [facility] [address] [place], [place] [address] Hospitalist H&P Signed Patient: Esme Steven MR#: [id number] : 1960 Acct:[id number] Age/Sex: 62 / M Adm Date: 4 Loc: Room: [address] [place] [address] Type: ADM IN Attending Dr: Elliott Talley [...] that which is noted above in HPI [facility] Medical History (Updated 08/30/23 @ 23:33 by [...] mg tablet,delayed release 81 mg PO DAILY AR prevention 01/29/17 [History Confirmed 08/30/23] atorvastatin 80 [...] % (Auto) 4.4 % (.) 08/30/23 18:20 [place] % (Auto) 2.3 % (.) 08/30/23 18:20 Eos % (Auto) 0.1 % (.) 08/30/23 18:20 Baso % (Auto) 0.8 % (.) 08/30/23 18:20 Nucleat RBC Rel Count 0.0 /100 WBC (0-0.5) 08/30/23 18:20 Neut # (Auto) 13.4 x10E3/uL (1.8-7.7) H 08/30/23 18:20 Lymph # (Auto) 0.6 x10E3/uL (1.00-4.8) L 08/30/23 18:20 [place] # (Auto) 0.3 x10E3/uL (0.0-0.8) 08/30/23 18:20 [...] pH 5.5 (5.0-9.0) 08/30/23 18:45 Ur Specific [place] 1.016 (1.001-1.030) 08/30/23 18:45 Urine Protein Negative [...] pink Documented By: Elliott Talley MD 4 7 Signed By: <Electronically signed by Elliott Talley MD> 08/30/23 2334 [facility] Work Phone: 1(853) 533-940905-09-2024 History of Present illness Narrative* Ky Navarro [...] m (5' 10.5 ) documented in this [facility] Work Phone: 1(273) 625-907204-25-2024 [facility] History of Present illness Narrative* Antonio Mora [...] been seen in the past by the [place] cardiology group but elected to change because [...] Status post aorto-coronary artery bypass graft 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 documented in this [facility] Work Phone: 1(602) 384-925604-19-2024 Instructions* Patient Instructions* Zo Castro LPN - [...] Provided instructions on exercise. documented in [facility]Tr[facility] Work Phone: 1(980) 739-773704-01-2024 Miscellaneous Notes* Telephone Encounter - Polly Magana [...] accordingly. Heladio Pineda MD documented in this encounterUniversity Hospitals Cleveland Medical Center03-28-2024 NoteHNO ID: [id number] Author: HELADIO PINEDA MD Service: ? Author [...] No falls/fx/trauma/illness/oral sores/rash/hairloss/jaw pain/dysphagia/epistaxis (more content not included)...[facility]03-25-2024 Miscellaneous Notes* Telephone Encounter - Gordon [...] normal esr 9, crp<0.3; documented in this encounterUniversity Hospitals Cleveland Medical Center03-07-2024 Miscellaneous Notes* Telephone Encounter - Kamille Rosario RN - 06/14/2023 9:28 AM EST Pt calling in; states he is to have procedure with JBP today but is experiencing fevers, vomiting, diarrhea. EP refined syrup operator notified to call pt to cancel and reschedule. * Telephone Encounter - Georgia Harvey LPN - 06/14/2023 9:28 AM EST Called and spoke with pt, pt confirmed N/V/D and fever. Advised pt to call when symptoms resolve and will reschedule Pt stated he did miss Eliquis dose last night and no meds currently d/t vomiting. Will notify JBP documented in this encounterGreen [facility]03-07-2024 Telephone encounter Note* Telephone Encounter - Kamille Rosario RN - 06/14/2023 9:28 AM EST Pt calling in; states he is to have procedure with [facility]BP today but is experiencing fevers, vomiting, diarrhea. EP refined syrup operator notified to call pt to cancel and reschedule. [facility]03-07-2024 Telephone encounter Note* Telephone Encounter - Georgia Harvey LPN - 06/14/2023 9:28 AM EST Called and spoke with pt, pt confirmed N/V/D and fever. Advised pt to call when symptoms resolve and will reschedule Pt stated he did miss Eliquis dose last night and no meds currently d/t vomiting. Will notify [facility]03-05-2024 Miscellaneous Notes* Telephone Encounter - Bharti Milian RN - 06/12/2023 5:10 PM EST Called patient with JBP's response to start Magnesium Oxide 400 twice a day by mouth. Patient agreeable and wants RX sent to [facility]. Rx sent to sign. Has some at home and will start tonight. tkm ----- Message from Chhaya Whatley MD sent at 06/12/2023 4:40 PM EST ----- Please have patient start taking magnesium oxide 400 mg twice a day. Thank you Dirk documented in this encounterGreen Cross Hospital03-05-2024 Telephone encounter Note* Telephone Encounter - Bharti Milian RN - 06/12/2023 5:10 PM EST Called patient with JBP's response to start Magnesium Oxide 400 twice a day by mouth. Patient agreeable and wants RX sent to [facility]. Rx sent to sign. Has some at home and will start tonight. tkm ----- Message from Chhaya Whatley MD sent at 06/12/2023 4:40 PM EST ----- Please have patient start taking magnesium oxide 400 mg twice a day. Thank you Dirk [facility]03-04-2024 Miscellaneous Notes* Telephone Encounter - Ambarsal Figueroa LPN - 06/11/2023 3:23 PM EST Images from the original note were not included. [facility] Cardiology: Cardioversion or DFT Testing Procedure: Cardioversion Physician: Dr. Dirk Whatley Date/Time of Procedure: 06/13 @ 1 pm Arrival Time: 12 pm Hospital: [facility] - Address: [address] [place] [address] Registration Location: [place] at Entrance C, parking lot P3 PRE OP REQUIREMENTS Below MUST be completed prior to your procedure or it may result in delay or cancellation [] Pre op testing: NONE [x] Pre op labs: Draw pre op labs any time between and at any [facility], no paper orders are required, [...] 7am Other Instructions: [x] Must have a stunt driver as you will be unable to drive following the procedure IMPORTANT INFORMATION Notify the EP Surgery office of any illness, infection or COVID symptoms or a COVID positive resultimmediately at [phone] If you take a blood thinner, unless [...] schedule changes or emergencies at the hospital [facility] currently allows up to two visitors at [...] you by the EP Surgery nurses. The [facility] [employer] [place] instructions can be incorrect and provide the wrong information about your procedure. If you have any questions or concerns about preparing for your procedure, please call the EP Surgery office at [phone] For additional questions and to schedule any follow up appointments please call the main [facility] Cardiology office at [phone] documented in this encounterGreen Cross Hospital03-04-2024 Telephone encounter Note* Telephone Encounter - Ambar Figueroa LPN - 06/11/2023 3:23 PM EST Images from the original note were not included. [facility] Cardiology: Cardioversion or DFT Testing Procedure: Cardioversion Physician: Dr. Dirk Whatley Date/Time of Procedure: 06/13 @ 1 pm Arrival Time: 12 pm Hospital: [facility] - Address: [address] [place] [address] Registration Location: [place] at Entrance C, parking lot P3 PRE OP REQUIREMENTS Below MUST be completed prior to your procedure or it may result in delay or cancellation [] Pre op testing: NONE [x] Pre op labs: Draw pre op labs any time between and Thursday at any [facility], no paper orders are required, [...] 7am Other Instructions: [x] Must have a stunt driver as you will be unable to drive following the procedure IMPORTANT INFORMATION Notify the EP Surgery office of any illness, infection or COVID symptoms or a COVID positive resultimmediately at [phone] If you take a blood thinner, unless [...] schedule changes or emergencies at the hospital [facility] currently allows up to two visitors at [...] you by the EP Surgery nurses. The [facility] [place] instructions can be incorrect and provide the wrong information about your procedure. If you have any questions or concerns about preparing for your procedure, please call the EP Surgery office at [phone] For additional questions and to schedule any follow up appointments please call the main [facility] Cardiology office at [phone] [facility] [employer] [id number] Miscellaneous Notes* Telephone Encounter - Melinda Gomes CMA - 06/01/2023 3:32 PM EST Called patient to remind them to bring their most current copy of their medication list with them to their appt. Patient verbalizes understanding. documented in this encounterProctor HospitalNexImmune02-23-2024 Telephone encounter Note* Telephone Encounter - Melinda Gomes CMA - 06/01/2023 3:32 PM EST Called patient to remind them to bring their most current copy of their medication list with them to their appt. Patient verbalizes understanding. [facility] Center[facility]02-12-2024 Evaluation note* Encounter Date Diagnosis Assessment Notes Treatment Notes Treatment Clinical Notes May, Acute pain of left knee (ICD-10 - M25.562) [facility] 02-12-2024 Evaluation note* Encounter Date Diagnosis [...] Pain of left calf (ICD-10 - M79.662) [facility] Other 02-07-2024 Evaluation note* Encounter Date Diagnosis Assessment Notes Treatment Notes Treatment Clinical Notes May, Aftercare following joint replacement surgery (ICD-10 - Z47.1) May, Presence of right artificial hip joint (ICD-10 - Z96.641) May, S/P total left hip arthroplasty (ICD-10 - Z96.642) May, Other [facility] at [facility] on 02/13/2023 At this point he is doing really well with the actual hip. We talked about being more aggressive and going to surgery to close this wound but the patient was recently diagnosed with atrial fibrillation. In my discussions with anesthesiology this would need to be worked up and evaluated by the account associate before considering a surgery unless it was an emergency. At this point I do not feel it is actively infected so I do not feel it is a emergent surgery. He does see Garfield in [place] on 06/04/2023. Our plan at this time is to continue with the wound VAC with home health nursing who will come back on Sunday to put the wound VAC back on. I will then plan to see him in about 3 weeks which would be a day or 2 after he has seen his account associate. At that point in time we will make a decision on the wound. If it is continuing to heal up and closed with the assistance of the wound VAC that is fantastic but if it still needs help then we will be aggressive at that time as long as his account associate allows. Discussed post-op dental prophylaxis. Shared decision made to continue prophylactic antibiotics indefinitely. [facility] Other 01-29-2024 Evaluation note* Encounter Date Diagnosis [...] sometime in November to further discuss surgery. [facility] Other 01-24-2024 Evaluation note* Encounter Date Diagnosis [...] are maintaining regular scheduled appts with their account associate. He understands that he must have surgery postponed for 4 wks for the new onset AFib. and postpone for 4-7 wks for COVID infection. Apr, Hypomagnesemia (ICD-10 - E83.42) Replace Magnesium w/ supplements Decrease Alcohol use. Recheck prior to any restortation of sinus rhythm [facility] Other 01-10-2024 NoteXR CHEST 1 VW Procedure: Chest x-ray performed Number of views:AP portable erect History:Palpitations, A. fib Comparison:07/18/2014 Findings: The heart and lungs show no acute findings, and the mediastinum and yue are grossly negative . There is a median sternotomy Impression: No acute change. Finalized by Sandra Barba DO on 04/18/2023 1:14 [facility] 04-18-2023 Miscellaneous Notes* Telephone Encounter - Florence [...] left and told him to call his account associate. Pt not dyspneic. Does have some dizzy symptoms. Pt not on any blood thinners. Instructed to go to ER for evaluation documented in this encounterProctor HospitalNexImmune01-10-2024 Telephone encounter Note* Telephone Encounter - Florence [...] left and told him to call his account associate. Pt not dyspneic. Does have some dizzy symptoms. Pt not on any blood thinners. Instructed to go to ER for evaluation [facility] [id number] Evaluation note* Encounter Date Diagnosis Assessment Notes [...] or dyspnea, instructed to go to ER [facility] 01-03-2024 Evaluation note* Encounter Date Diagnosis [...] will call us to get in sooner. [facility] Other 12-28-2023 Evaluation note* Encounter Date Diagnosis [...] and acute blood loss anemia are contributing [facility] Other 12-21-2023 Evaluation note* Encounter Date Diagnosis Assessment Notes Treatment Notes Treatment Clinical Notes Mar, Aftercare following joint replacement surgery (ICD-10 - Z47.1) Mar, Presence of right artificial hip joint (ICD-10 - Z96.641) Mar, S/P total left hip arthroplasty (ICD-10 - Z96.642) Mar, Other [facility] at [facility] on 02/13/2023 Overall he is doing great [...] continue increasing activities as tolerated. Continue taking saou-qzo-vyedonr anti-inflammatorie s as needed for assistance with swelling and pain associated with the operative extremity. [facility] Other 12-07-2023 Evaluation note* Encounter Date Diagnosis [...] in the office today and providing supervision. [facility] Other 12-07-2023 Evaluation note* Encounter Date Diagnosis [...] answered to the best of my ability. [facility] Other 12-04-2023 Evaluation note* Encounter Date Diagnosis Assessment Notes Treatment Notes Treatment Clinical Notes Mar, Primary osteoarthritis 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 (ICD-10 - M16.11) [facility] [employer] Other 11-29-2023 Miscellaneous Notes* Telephone Encounter - [...] to My Chart if tests completed at [facility]: normal labs and no inflammation. Continue same [...] normal esr 9, crp<0.3; documented in this encounterUniversity Hospitals Cleveland Medical Center11-29-2023 Evaluation note* Encounter Date Diagnosis Assessment Notes Treatment Notes Treatment Clinical Notes Feb, Aftercare following joint replacement surgery (ICD-10 - Z47.1) Feb, Presence of right artificial hip joint (ICD-10 - Z96.641) Feb, S/P total left hip arthroplasty (ICD-10 - Z96.642) Feb, Other [facility] 2022 Patient is still progressing [...] follow-up appointments based on that incision check. [facility] Other 11-27-2023 History of Present illness Narrative* [...] no Dactylitis: no H/o precedent/frequent infection(s): no Enthesopathy/[facility]/heel/plantar tenderness: no Skin thickening, psoriasis, photosensitivity, purpura: no Nail changes: no Alpecia, patchy: no Eye inflammation: glasses SICCA: no Oral/nasal/genital ulcers: no GI problems-diarrhea/bleeding/IBD/Gluten intolerence/Dysphagia: occasionally gerd Raynaud's phenomenon/digital ulcers: no Organ inv-Serositis: no Lung disease/ILD: no Myopathy/proximal muscle weakness: no Abnormal Urine or urethritis: no Renal/liver disease: as above INSURANCE SALESPERSON/PNS/sz/cva/cancer disease: no HEME-Cytopenias/LAD/Clots: no Fevers: no Fatigue: [...] Cans of Beer (12oz) per week 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 Mild narrowing of the [...] shoulder M25.551 Pain in right hip Z79.52 detention current use of 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 R76.8 CHENCHO [...] touching your toes, sit-ups, using row machine care home pain recommendations per primary care provider/pain clinic [...] video & audio (virtual) or phone or yndj-jr-fycg patient care, completing clinical documentation, obtaining and/or [...] cc Coleman Brower DO documented in this encounterUniversity Hospitals Cleveland Medical Center11-27-2023 NoteHNO ID: [id number] Author: Heladio Pineda MD Service: ? Author [...] no Dactylitis: no H/o precedent/frequent infection(s): no Enthesopathy/[facility]/heel/plantar tenderness: no Skin thickening, psoriasis, photosensitivity, purpura: no Nail changes: no Alpecia, patchy: no Eye inflammation: glasses SICCA: no Oral/nasal/genital ulcers: no GI problems-diarrhea/bleeding/IBD/Gluten intolerence/Dysphagia: occasionally gerd Raynaud's phenomenon/digital ulcers: no Organ inv-Serositis: no Lung disease/ILD: no Myopathy/proximal muscle weakness: no Abnormal Urine or urethritis: no Renal/liver disease: as above INSURANCE SALESPERSON/PNS/sz/cva/cancer disease: no HEME-Cytopenias/LAD/Clots: no Fevers: no Fatigue: [...] other reviewed and negat (more content not included)...[facility]11-26-2023 Instructions* Patient Instructions* Heladio Pineda MD [...] touching your toes, sit-ups, 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 per primary care provider/pain clinic [...] Ab, Total Negative Negative documented in this encounterUniversity Hospitals Cleveland Medical Center11-25-2023 Miscellaneous Notes* Telephone Encounter - Heladio Pineda [...] - This Specialty 01/05/2023 PMR (polymyalgia rheumatica) ([facility]) Rheumatology Heladio Pineda MD 11/17/2013 Wrist arthritis [facility] Tracy Conley 10/29/2013 Pseudogout Rheumatology Tracy Conley Upcoming Rheumatology Appointments - Next 365 Days Visit Type Date Time Department MICHEAL EST [facility] 03/05/2023 2:00 PM [facility] CBC: CBC Latest Ref Rng [...] diagnoses: Vitamin B12 deficiency documented in this encounterUniversity Hospitals Cleveland Medical Center11-22-2023 Evaluation note* Encounter Date Diagnosis Assessment Notes [...] total left hip arthroplasty (ICD-10 - Z96.642) [facility] Other 10-27-2023 Evaluation note* Encounter Date Diagnosis [...] patient could proceed with surgery safely. The welfare centre manager was vital for surgery timing and [...] plans. Prolonged services time spent: 34 minutes [facility] Other 10-25-2023 Evaluation note* Encounter Date Diagnosis Assessment Notes Treatment Notes Treatment Clinical Notes Jan, Primary osteoarthritis 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 (ICD-10 - M16.11) Jan, Other 1. Right PETER Home Medications - DVT prophylaxis: Aspirin - NSAID: Home prednisone - Disposition: Same-day discharge Joints Meeting Checklist - Pharmacy: [facility] to bed - Approach/Technique: anterior, [place] bed - Implants: Avenir Complete/G7; - Anesthesia: general vs spinal - Blocks: Fascia iliaca - Preop Antibiotics: Ancef and Vanco - TXA: yes-systemic - Positioning/OR Bed: supine on [place] bed - Intraop X-ray: yes - [place]: [...] above surgery. OARRS report generated and reviewed. [facility] Other 10-18-2023 Evaluation note* Encounter Date Diagnosis [...] w/ plan to start MTX after surgery [facility] Other 10-05-2023 Miscellaneous Notes* Telephone Encounter - Ruben Monterroso MA - 01/11/2023 8:43 AM EDT Spoke to pt aware of results and recommendations. * Telephone Encounter - Heladio Pineda MD - 01/10/2023 5:14 PM EDT Please Call patient if MyChart note not read to review results/released to My Chart if tests completed at [facility]: Mildly Low vitamin D maybe associated with fatigue/joint/muscle pain. Start vitamin D 4000 International Units daily with food. Mildly Low vitamin b12- maybe associated with fatigue, may start over the counter vitamin [id number] daily by mouth or notify office if [...] hepatitis panel, quantiferon tb; documented in this encounterUniversity Hospitals Cleveland Medical Center09-29-2023 Instructions* Patient Instructions* Heladio Pineda MD - [...] touching your toes, sit-ups, using row machine care home pain recommendations per primary care provider/pain clinic [...] your usual activities immediately. documented in this encounterUniversity Hospitals Cleveland Medical Center09-29-2023 NoteHNO ID: [id number] Author: Heladio Pineda MD Service: ? Author Type: Physician Type: Progress Notes Filed: 01/05/2023 4:37 PM Note Text: NEW CONSULT:RHEUMATOLOGY SERVICE SERVICE DATE: 01/05/2023 SERVICE TIME: 11:31 AM REASON FOR CONSULT: joint pain 2nd opinion REQUESTING PHYSICIAN: Dr.Benjamin Inocente DO PRIMARY CARE PHYSICIAN: Coleman Brower DO Patient's Name: Esme Steven [address] [place] [id number] Accompanied by: self This consult was requested for my medical opinion regarding the rheumatologic evaluation of the patient's joint pain problems, and my final recommendations will be communicated to the requesting health care provider by way of the shared medical record for internal providers or letter via the [employer] for external providers. January 05, [...] no Dactylitis: no H/o precedent/frequent infection(s): no Enthesopathy/[facility]/heel/plantar tenderness: no Skin thickening, psoriasis, photosensitivity, purpura: no Nail changes: no Alpecia, patchy: no Eye inflammation: glasses SICCA: no Oral/nasal/genital ulcers: no GI problems-diarrhea/bleeding/IBD/Gluten intolerence/Dysphagia: occasionally gerd Raynaud's phenomenon/digital ulcers: no Organ inv-Serositis: no Lung disease/ILD: no Myopathy/proximal muscle weakness: no Abnormal Urine or urethritis: no Renal/liver disease: as above INSURANCE SALESPERSON/PNS/sz/cva/cancer disease: no HEME-Cytopenias/LAD/Clots: no Fevers: no Fatigue: [...] FAMILY HISTORY Problem Re (more content not included)...[facility]09-29-2023 History of Present illness Narrative* Heladio Pineda MD - 01/05/2023 11:31 AM EDT NEW CONSULT:RHEUMATOLOGY SERVICE SERVICE DATE: 01/05/2023 SERVICE TIME: 11:31 AM REASON FOR CONSULT: joint pain 2nd opinion REQUESTING PHYSICIAN: Dr.Benjamin Inocente DO PRIMARY CARE PHYSICIAN: Coleman Brower DO Patient's Name: Esme Steven [address] [place], [place] [id number] Accompanied by: self This consult was requested for my medical opinion regarding the rheumatologic evaluation of the patient's joint pain problems, and my final recommendations will be communicated to the requesting health care provider by way of the shared medical record for internal providers or letter via the [facility] Postal Service for external providers. January 05, [...] no Dactylitis: no H/o precedent/frequent infection(s): no Enthesopathy/[facility]/heel/plantar tenderness: no Skin thickening, psoriasis, photosensitivity, purpura: no Nail changes: no Alpecia, patchy: no Eye inflammation: glasses SICCA: no Oral/nasal/genital ulcers: no GI problems-diarrhea/bleeding/IBD/Gluten intolerence/Dysphagia: occasionally gerd Raynaud's phenomenon/digital ulcers: no Organ inv-Serositis: no Lung disease/ILD: no Myopathy/proximal muscle weakness: no Abnormal Urine or urethritis: no Renal/liver disease: as above INSURANCE SALESPERSON/PNS/sz/cva/cancer disease: no HEME-Cytopenias/LAD/Clots: no Fevers: no Fatigue: [...] xrays-Marked triscaphe joint space narrowing bilaterally with arcp-nw-oemw contact andsubchondral sclerosis. 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 Steven's ASA to his account associate, but guidelines favor continuing without interruption, if [...] E06.3) Clinically euthyroid, continue treatment without interruption [facility] Other 09-19-2023 Evaluation note* Encounter Date Diagnosis [...] Dec, Multiple joint pain (ICD-10 - M25.50) [facility] Other 08-17-2023 Evaluation note* Encounter Date Diagnosis Assessment Notes Treatment Notes Treatment Clinical Notes Nov, Pseudogout (ICD-10 - M11.20) [facility] Other 08-16-2023 Evaluation note* Encounter Date Diagnosis Assessment Notes Treatment Notes Treatment Clinical Notes Nov, Primary osteoarthritis 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 (ICD-10 - M16.11) [facility] Other 08-15-2023 Evaluation note* Encounter Date Diagnosis [...] refer to Heladio Pineda for rheumatology consult [facility] Other 08-07-2023 Evaluation note* Encounter Date Diagnosis [...] (ICD-10 - Z12.5) Yearly MELBA and PSA [facility] Other 07-19-2023 Evaluation note* Encounter Date Diagnosis Assessment Notes Treatment Notes Treatment Clinical Notes Oct, Superficial ulcer of lower extremity (ICD-10 - L97.909) Cleanse w/ soap and water. Elevate as much as possible. No improvement, refer to wound clinic Oct, Cellulitis of left lower extremity (ICD-10 - L03.116) Keep clean, elevate and use Mupirocin bid. Begin antibiotics. [facility] Other 06-27-2023 Evaluation note* Encounter Date Diagnosis [...] palpitations or lightheadedness He completed evaluation w/ 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 w/o changes Instructed to avoid use of Nitroglycerine w/ Sildenafil. Instructed to avoid use if develop CP, palpitations or lightheadedness [facility] Other 06-21-2023 Evaluation note* Encounter Date Diagnosis Assessment Notes Treatment Notes Treatment Clinical Notes Sep, FER (obstructive sleep apnea) (ICD-10 - G47.33) AHI 25, Psat 80% [facility] Other 06-21-2023 Evaluation note* Encounter Date Diagnosis Assessment Notes Treatment Notes Treatment Clinical Notes Sep, FER (obstructive sleep apnea) (ICD-10 - G47.33) AHI 35 [facility] Other 05-03-2023 Evaluation note* Encounter Date Diagnosis [...] recurrent major depressive disorder (ICD-10 - F33.0) [facility] Other 05-01-2023 Evaluation note* Encounter Date Diagnosis [...] note writ ten by Kevyn Corona MA, Early Interventionist. Edited and approved by Dr. Jonathan Samano MD. [facility] Other 04-25-2023 Evaluation note* Encounter Date Diagnosis Assessment Notes Treatment Notes Treatment Clinical Notes Jul, Myalgia (ICD-10 - M79.10) [facility] Other 04-24-2023 Evaluation note* Encounter Date Diagnosis Assessment Notes Treatment Notes Treatment Clinical Notes Jul, Right shoulder pain (ICD-10 - M25.511) [facility] Other 04-21-2023 Evaluation note* Encounter Date Diagnosis [...] of yearly testing Sent order to complete [facility] Other 03-28-2023 Evaluation note* Encounter Date Diagnosis [...] left shoulder, initial encounter (ICD-10 - S40.012A) [facility] Other 02-27-2023 Evaluation note* Encounter Date Diagnosis [...] note writ ten by Jeff Nieto LPN, Early Interventionist. Edited and approved by Dr. Jonathan Samano MD. [facility] Other 02-27-2023 Evaluation note* Encounter Date Diagnosis [...] the injection well with no adverse reaction. [facility] Other 02-20-2023 Evaluation note* Encounter Date Diagnosis [...] to continue exercise and AHA diet plan. [facility] Other 02-14-2023 Evaluation note* Encounter Date Diagnosis Assessment Notes Treatment Notes Treatment Clinical Notes May, Tongue ulceration (ICD-10 - K14.0) Magic Mouth Wash qid. Refer to ENT May, Hoarseness of voice (ICD-10 - R49.0) Refer to ENT May, Odynophagia (ICD-10 - R13.10) Refer to ENT [facility] Other 01-04-2023 Evaluation note* Encounter Date Diagnosis [...] note writ ten by Jeff Nieto LPN, Early Interventionist. Edited and approved by Dr. Jonathan Samano MD. [facility] Other 11-30-2022 Evaluation note* Encounter Date Diagnosis [...] note writ ten by Jeff Nieto LPN, Early Interventionist. Edited and approved by Dr. Jonathan Samano MD. [facility] Other 11-09-2022 Evaluation note* Encounter Date Diagnosis [...] and tingle for hours after this injection. [facility] Other 11-07-2022 Evaluation note* Encounter Date Diagnosis [...] note writ ten by Jeff Nieto LPN, Early Interventionist. Edited and approved by Dr. Jonathan Samano MD. [facility] Other 06-22-2022 Evaluation note* Encounter Date Diagnosis Assessment Notes Treatment Notes Treatment Clinical Notes Sep, Primary osteoarthritis 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 (ICD-10 - M16.11) Sep, Primary osteoarthritis of left hip (ICD-10 - M16.12) Sep, S/P total left hip arthroplasty (ICD-10 - Z96.642) Sep, Other [facility] at [facility] on 07/04/2021 Doing well. Again discussed getting [...] to call with any questions or concerns. [facility] Other 06-06-2022 Evaluation note* Encounter Date Diagnosis Assessment Notes Treatment Notes Treatment Clinical Notes Sep, Right hand pain (ICD-10 - M79.641) Sep, Arthritis of right hand (ICD-10 - M19.041) Right long finger MCP joint injected with cortisone under sterile technique, patient tolerated well. 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 Continue taking fdkw-sml-aeylwey anti-inflammatori es as needed for assistance with swelling and pain associated with the operative extremity. Follow-up in 6 weeks for repeat examination and repeat x-rays. [facility] Other 04-13-2022 Evaluation note* Encounter Date Diagnosis Assessment Notes Treatment Notes Treatment Clinical Notes Jul, Primary osteoarthritis 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 (ICD-10 - M16.11) Jul, Primary osteoarthritis of left hip (ICD-10 - M16.12) Jul, Other [facility] at [facility] on 07/04/2021 Doing well. Steri-Strips applied. Discussed [...] off narcotic pain medication. They can take dqcm-nfy-mfparnc anti-inflammatories as needed for assistance with swelling [...] shoe for his standing weightbearing pelvis x-ray. [facility] Other 03-18-2022 Evaluation note* Encounter Date Diagnosis [...] patient could proceed with surgery safely. The welfare centre manager was vital for surgery timing and [...] echo and a heart cath by his account associate. He was then cleared from a cardiology standpoint. Any recommendations made by these care providers were taken into consideration for the patient's perioperative and postoperative treatment plans. Prolonged services time spent: 33 minutes [facility] Other 03-11-2022 Evaluation note* Encounter Date Diagnosis [...] postoperative period Joints Meeting Checklist - Pharmacy: [facility] to bed - Approach/Technique: anterior, [place] bed - Implants: Avenir Complete/G7; - Anesthesia: general - Blocks: Fascia iliaca - Preop Antibiotics: Ancef - TXA: yes-systemic - Positioning/OR Bed: supine on [place] bed - Intraop X-ray: yes - Otoole: [...] elected to proceed with the above surgery. [facility] Other 11-16-2021 Evaluation note* Encounter Date Diagnosis [...] note writ ten by Erica Valenzuela CMA, Early Interventionist. Edited and approved by Dr. Jonathan Samano MD. [facility] Other 09-29-2021 Evaluation note* Encounter Date Diagnosis [...] note writ ten by Erica Valenzuela CMA, Early Interventionist. Edited and approved by Dr. Jonathan Samano MD. 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 Encounter for long-term (current) use of steroids CHENCHO positive Other and unspecified nonspecific immunological findings Bilateral hand swelling documented in this [facility] Diagnosis PMR (polymyalgia rheumatica) (HCC)- Primary Polymyalgia rheumatica Elevated sed rate Elevated sedimentation rate Elevated C-reactive protein (CRP) Vitamin D deficiency Unspecified vitamin D deficiency Vitamin B12 deficiency Other B-complex deficiencies documented in this [facility]* Diagnosis PMR (polymyalgia rheumatica) (HCC)- Primary [...] 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, pelvic region and thigh detention current use of 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 Encounter for long-term (current) use of steroids CHENCHO positive Other and unspecified nonspecific immunological findings Chronic pain of both knees Bilateral hand pain Pain in limb documented in this [facility]* Diagnosis PMR (polymyalgia rheumatica) (HCC)- Primary Polymyalgia rheumatica Elevated sed rate Elevated sedimentation rate Elevated C-reactive protein (CRP) documented in this encounter [facility]* Diagnosis Hypomagnesemia- Primary Disorders of magnesium metabolism documented [facility] Diagnosis Steroid-induced osteoporosis Other osteoporosis [...] acute Hyperlipidemia acute Hypertension acute Hypothyroidism acute [facility] Work Phone: Evaluation note* Diagnosis PMR (polymyalgia rheumatica) (HCC)- Primary Polymyalgia rheumatica Elevated sed rate Elevated sedimentation rate Elevated C-reactive protein (CRP) Vitamin D deficiency Unspecified vitamin D deficiency documented [facility] this [facility] Diagnosis Persistent atrial fibrillation (Multi)- Primary Atrial fibrillation Multi-vessel coronary artery stenosis Cardiomyopathy, ischemic Other specified forms of chronic ischemic heart disease Mixed hyperlipidemia 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 (Multi) Atrial fibrillation Status post aorto-coronary artery bypass graft detention current use of anticoagulant therapy BMI 35.0-35.9,adult documented in this encounter [facility] Work Phone: Evaluation note* Diagnosis Onset Date Resolution Status Aftercare following hip joint replacement surgery acute History of total replacement 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 acute Aftercare following hip joint replacement surgery acute History of total replacement 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 acute ASHD (arteriosclerotic heart disease) acute Atrial fibrillation acute GENESIS (generalized anxiety disorder) acute Hypertension acute [facility] Work Phone: Evaluation note* Diagnosis 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 (Multi) Atrial fibrillation documented in this encounter [facility] Work Phone: Evaluation note* Diagnosis Onset Date [...] acute SIRS (systemic inflammatory response syndrome) acute [facility] Work Phone: Evaluation note* Diagnosis Onset [...] acute SIRS (systemic inflammatory response syndrome) acute [facility] Work Phone: Evaluation note* Diagnosis PMR (polymyalgia rheumatica) ([facility])- Primary Polymyalgia rheumatica Elevated sed rate Elevated sedimentation rate Elevated C-reactive protein (CRP) documented [facility] this [facility]* Diagnosis Onset Date Resolution Status Aftercare following hip joint replacement surgery acute History of total replacement 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 acute ASHD (arteriosclerotic heart disease) acute GENESIS (generalized anxiety disorder) acute Acute diverticulitis acute Acute diverticulitis acute ASHD (arteriosclerotic heart disease) acute Inflammatory polyarthritis a cute Persistent atrial fibrillation acute Primary hypertension acute [facility] Work Phone: Evaluation note* Diagnosis 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 (tophi) Hyperuricemia Other abnormal blood chemistry documented in this encounter [facility]* Diagnosis Onset Date Resolution Status Acute diverticulitis acute Elevated lactic acid level r esolved Acute diverticulitis acute ASHD (arteriosclerotic heart disease) acute Inflammatory polyarthritis a cute Persistent atrial fibrillation acute Primary hypertension acute Biceps tendonitis on right a cute Rotator cuff syndrome of right shoulder acute Traumatic complete tear of left rotator cuff acute [facility] Work Phone: Evaluation note* Diagnosis Onset [...] diverticulitis of colon noneactive Wellness examination noneact [facility] Work Phone: History and physical note Author Elliott Talley [facility] August 30, 2023 11:34pm Note Date/Time August 30, 2023 11:04 pm [facility] [address] [place] [address] Hospitalist H&P Signed Patient: Esme Steven MR#: [id number] : 1960 Acct:[id number] Age/Sex: 62 / M Adm Date: 4 Loc: Room: [address] [place] [address] Type: ADM IN Attending Dr: Elliott Talley [...] that which is noted above in HPI [facility] Medical History (Updated 08/30/23 @ 23:33 by [...] mg tablet,delayed release 81 mg PO DAILY AR prevention 01/29/17 [History Confirmed 08/30/23] atorvastatin 80 [...] % (Auto) 4.4 % (.) 08/30/23 18:20 [place] % (Auto) 2.3 % (.) 08/30/23 18:20 Eos % (Auto) 0.1 % (.) 08/30/23 18:20 Baso % (Auto) 0.8 % (.) 08/30/23 18:20 Nucleat RBC Rel Count 0.0 /100 WBC (0-0.5) 08/30/23 18:20 Neut # (Auto) 13.4 x10E3/uL (1.8-7.7) H 08/30/23 18:20 Lymph # (Auto) 0.6 x10E3/uL (1.00-4.8) L 08/30/23 18:20 [place] # (Auto) 0.3 x10E3/uL (0.0-0.8) 08/30/23 18:20 [...] pH 5.5 (5.0-9.0) 08/30/23 18:45 Ur Specific [place] 1.016 (1.001-1.030) 08/30/23 18:45 Urine Protein Negative [...] pink Documented By: Elliott Talley MD [id number] Signed By: <Electronically signed by Elliott Talley MD> 08/30/23 4534 [facility] Work Phone: Hisoxer general Narrative - Reported* Type Description Date [...] Harmony willams 2012 Hospitalization History see above [facility] Other Histqdu general Narrative - Reported* Type Description Date [...] knee replacement 2012 Hospitalization History see above [facility] Other Hismuar general Narrative - Reported* Type Description Date [...] Harmony willams 2012 Hospitalization History see above [facility] Other History general Narrative - [facility]ortedN[facility]oxhealth [facility] Other history general Narrative - Reported* Type [...] History LTHA 07/04/21 Hospitalization History see above [facility] Other Histeld general Narrative - Reported* Type Description Date [...] History LTHA 07/04/21 Hospitalization History see above [facility] Other history general Narrative - Reported* Type [...] History LTHA 07/04/21 Hospitalization History see above [facility] Other history general Narrative - Reported* Type [...] Right PETER 02/2023 Hospitalization History see above [facility] Other History general Narrative - Reported* Type [...] w/ PTCA/stent 2014 Hospitalization History see above [facility] Other Hospital Discharge instructions Additional Instructions Joint Replacement Discharge Instructions Your safety during your recovery process is important to us. Please seek immediate emergency care if you have sudden chest pain or shortness of breath. Additionally, please call our office at [phone] should any of the following occur: wound [...] to walk without your walker and your pet care associate until the therapist checks you the following [...] and/or laxatives as directed. You may take bevx-ffz-fweyyyj Benadryl if itching occurs without a rash or hives. Icing and elevation will help relieve pain as well, do not underestimate the power of ice and elevation. We do recommend that you stop taking narcotic pain medications by 4-6 weeks after surgery and if necessary, continue to use anti-inflammatory medications such as Mobic (meloxicam), Celebrex (celecoxib), or an crxq-fyw-jeaeffv medication (Aleve, Motrin, Ibuprofen, etc). Driving an [...] feel free to call our office at [phone]. You are a priority of ours and we will not be upset with you if you call. We would much rather you call to confirm aspects of your recovery process as opposed to possibly hindering your recovery with inappropriate care. We are committed to providing you with the best care possible. Sarai Mendez II, MD Updated 06/23/2022[facility] Work Phone: InstructionsNot on filedocumented in this encounter [facility] filedocumented in this encounter [facility]Not on filedocumented in this encounter [facility]ructionsNot on filedocumented in this encounter [facility] note Author Sally Alex [facility] August 31, 2023 3:45pm Note Date/Time August 31, 2023 10:54 am [facility] [address] [place] [address] Hospitalist Progress Note Signed with Addenda Patient: Esme Steven MR#: [id number] : 1960 Acct:[id number] Age/Sex: 62 / M Adm Date: 4 Loc: Room: [address] [place] [address] Type: ADM IN Attending Dr: Sally Alex MD Copies to: ~ ADDENDUM1 Patient was personally seen by me on the day of encounter, reviewed his history and performed gomez elements of exam and formulated the plan of care and confirmedthe resident/interns note below. Addendum Documented By: Sally Alex MD 08/31/23 2681 Addendum Signed By: <Electronically signed by Sally [...] signed by DO RADHA Zavala> 08/31/23 1054 [facility] Work Phone: Reason for referral (narrative)* Reason Referral for suspect ed PMR Known OA spine, hips, knees, hands Diagnosis 1 PMR (polymyalgia rhe umatica) (M35.3) Referral Organization [facility] Inocente Al C neyda Referring Provider First Name Coleman Referring Provider Last Name Inocente Referring Provider Specialty Internal Me dicine Referred Organization [facility] Referred Provider Sarai Georges Referred Address [address] [place] Referral Priority Routine [facility] Other Reason for referral (narrative)* Diagnostic Procedure Only (Routine) - Authorized Specialty Diagnoses / Procedures Referred By Contac t Referred To Contact XR IMAGING Diagnoses Steroid-induced osteoporosis Procedures DXA-FOREARM SKELETON DXA BONE DENSITY STUDY 1/>SITES Heladio Alvarado MD [address] [facility] [address] [place] [address] Referral ID Status Reason Start Date Expiration Date Visits Requested Visits Authorized [id number] Authorized Auto-Generat ed Referral 01/05/2023 02/04/2024 1 1 [facility] for referral (narrative)* Diagnostic Procedure Only (Routine) - Closed Specialty Diagnoses / Procedures Referred By Contac t Referred To Contact XR IMAGING Diagnoses Steroid-induced osteoporosis Procedures DXA-FOREARM SKELETON DXA BONE DENSITY STUDY 1/>SITES Heladio Alvarado MD [address] [facility] [place] [address] [place] [address] Referral ID Status Reason Start Date Expiration Date V isits Requested Visits Authorized [id number] Closed Auto-Generate d Referral 01/05/2023 02/04/2024 1 1 [facility] for visit Narrative* Diagnostic Procedure Only (Routine) - Closed Specialty Diagnoses / Procedures Referred By Contac t Referred To Contact XR IMAGING Diagnoses Steroid-induced osteoporosis Procedures DXA-FOREARM SKELETON DXA BONE DENSITY STUDY 1/>SITES Heladio Alvarado MD [address] [place] [address] [place] [address] Referral ID Status Reason Start Date Expiration Date V isits Requested Visits Authorized [id number] Closed Auto-Generate d Referral 01/05/2023 02/04/2024 1 1 [facility] Chief Complaint and Reason for Visit Chief [...] Complaint Hip pain Hip pain Chief Complaint Op/Money Order Clerk Left Shoulder Pain Mri Done At [facility] z47.1 z96.641 Flu Shot/ Bp Check Discussion About 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 Recheck Left Shoulder Cannot Have Surger Chief Complaint Op/Money Order Clerk Left Shoulder Pain Mri Done At [facility] z47.1 z96.641 Flu Shot/ Bp Check Discussion About 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 Recheck Left Shoulder Cannot Have Surger Z47.1/Z96.641 T84.84XA Z96.652 M79.662 Chief Complaint Flu Shot/ Bp Check Discussion About 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 Recheck Left Shoulder Cannot Have Surger Z47.1/Z96.641 [...] Cerebral aneurysm Unknown brother Exposure to Agent [place] Unknown Relationship Condition Age at Onset Recorded Date/T daren Not Specified Calculus of kidney Unknown Presence of cardiac pacemaker Unknown Cerebrovascular accident (CVA) Unknown father Coronary artery disease Unknown brother Cerebral aneurysm Unknown brother Exposure to Agent [place] Unknown brother Unknown father Unknown Not Specified Unknown History of stroke Unknown Heart disease Unknown Relationship Condition Age at Onset Recorded Date/T daren Not Specified Calculus of kidney Unknown Presence of cardiac pacemaker Unknown Cerebrovascular accident (CVA) Unknown History of stroke Unknown Unknown Heart disease Unknown father Coronary artery disease Unknown brother Cerebral aneurysm Unknown Exposure to Agent [place] Unknown Relationship Condition Age at Onset Recorded Date/T daren mother Calculus of kidney Unknown Presence of cardiac pacemaker Unknown Cerebrovascular accident (CVA) Unknown History of stroke Unknown Unknown Heart disease Unknown father Coronary artery disease Unknown brother Cerebral aneurysm Unknown Exposure to Agent [place] Unknown Advance Directives Advance Directive Response Recorded Date/ Time Advance Directives No January 25, 2017 2:08pm Advance Directive Response Recorded Date/ Time Advance Directives No January 25, 2017 1:08pm Reason for Referral Specialty Diagnoses / Procedures Referred By Mario bartholomew Referred To Contact Diagnoses 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 (Multi) Procedures ECG 12 Lead nAtonio Mora MD [address] [place] [address] 2, [place] [id number] Referral ID Status Reason Start Date Expiration Date V isits Requested Visits Authorized [id number] Authorized 07/27/2023 07/26/2024 1 1 Specialty Diagnoses / Procedures Referred By Mario bartholomew Referred To Contact Cardiology Diagnoses 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 Procedures Cardioversion External Antonio Mora MD [address] [facility] [address], [place] [address] [place] [id number] Referral ID Status Reason Start Date Expiration Date V isits Requested Visits Authorized [id number] Pending Review 07/27/2023 07/26/2024 1 1 Referral ID Status Reason Start Date Expiration Date V isits Requested Visits Authorized [id number] Authorized 07/27/2023 07/26/2024 1 1 Specialty Diagnoses / Procedures Referred By Mario bartholomew Referred To Contact Cardiology Diagnoses 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 (Multi) Procedures Follow Up In Cardiology Antonio Mora MD [facility] [facility] [address], [address] [place] [address] Antoino Mora MD [address] [facility] [address], [address] [place] [address] Referral ID Status Reason Start Date Expiration Date V isits Requested Visits Authorized [id number] Authorized 07/27/2023 07/26/2024 1 1 Reason *FU 11/[address] please r frankie to dr pineda for rheumatology. labs with Dr Brower. Saw [facility], wants second opinion Diagnosis 1 Multiple joint pain (M25.50) Referral Organization [facility] Referring Provider First Name Melinda Referring Provider Last Name Luba Referring Provider Specialty Nurse Pract itioner Referred Organization [facility] Referred Provider Heladio Pineda Referred Address [address] [place], [place],[address] Referred Provider Specialty Internal Med icine Referral [...] 1 Tongue ulceration (K 14.0) Referral Organization [facility] Marvin faye Referring Provider First Name Coleman Referring Provider Last Name Inocente Referring Provider Specialty Internal Me dicine Referred Organization [facility] Referred Provider Radha Blackburn Referred Address ,[place], [place],[address] Referred Provider Specialty Ear, Nose an d [...] or prosecute any alcohol or drug abuse patient.[facility] CenterIn the event this information is protected by the Federal Confidentiality of Alcohol and Drug Abuse Patient Records regulations: The Federal rules restrict any use of the information to criminally investigate or prosecute any alcohol or drug abuse patient.[facility] CenterIn the event this information is protected by the Federal Confidentiality of Alcohol and Drug Abuse Patient Records regulations: The Federal rules restrict any use of the information to criminally investigate or prosecute any alcohol or drug abuse patient.[facility] CenterIn the event this information is protected by the Federal Confidentiality of Alcohol and Drug Abuse Patient Records regulations: The Federal rules restrict any use of the information to criminally investigate or prosecute any alcohol or drug abuse patient.[facility] CenterIn the event this information is protected by the Federal Confidentiality of Alcohol and Drug Abuse Patient Records regulations: The Federal rules restrict any use of the information to criminally investigate or prosecute any alcohol or drug abuse patient.[facility] CenterIn the event this information is protected by the Federal Confidentiality of Alcohol and Drug Abuse Patient Records regulations: The Federal rules restrict any use of the information to criminally investigate or prosecute any alcohol or drug abuse patient.[facility] CenterIn the event this information is protected by the Federal Confidentiality of Alcohol and Drug Abuse Patient Records regulations: The Federal rules restrict any use of the information to criminally investigate or prosecute any alcohol or drug abuse patient.[facility] CenterIn the event this information is protected by the Federal Confidentiality of Alcohol and Drug Abuse Patient Records regulations: The Federal rules restrict any use of the information to criminally investigate or prosecute any alcohol or drug abuse patient.[facility] CenterIn the event this information is protected by the Federal Confidentiality of Alcohol and Drug Abuse Patient Records regulations: The Federal rules restrict any use of the information to criminally investigate or prosecute any alcohol or drug abuse patient.[facility] CenterIn the event this information is protected by the Federal Confidentiality of Alcohol and Drug Abuse Patient Records regulations: The Federal rules restrict any use of the information to criminally investigate or prosecute any alcohol or drug abuse patient.[facility] CenterIn the event this information is protected by the Federal Confidentiality of Alcohol and Drug Abuse Patient Records regulations: The Federal rules restrict any use of the information to criminally investigate or prosecute any alcohol or drug abuse patient.[facility] REASON FOR VISIT (unrecogniz ed section and content) Reason Comments Consult Pain Ongoing generalized pain. Reason Comments Results Reason Comments Refill Request Reason Comments Follow Up Reason Onset Date Comments EP Surgery ( Pt Education) 06/11/2023 Reason Comments Results Orders Reason Comments New Patient Visit [facility], previous [facility] patient Specialty Diagnoses / Procedures Referred By Contac t Referred To Contact Diagnoses 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 (Multi) Procedures ECG 12 Lead Antonio Mora MD [address] [place] [address] Referral ID Status Reason Start Date Expiration Date V isits Requested Visits Authorized [id number] Authorized 07/27/2023 07/26/2024 1 1 Reason Comments EKG visit Specialty Diagnoses / Procedures Referred By Contac t Referred To Contact Diagnoses 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 (Multi) Procedures ECG 12 Lead Antonio Mora MD [address] [place] [address] Referral ID Status Reason Start Date Expiration Date V isits Requested Visits Authorized [id number] Authorized 07/27/2023 07/26/2024 1 1 Care Teams [...] 2023 Thao Mehdi Attending Provider Active Start: [facility] 2023 Team Status: Inactive Member Role Status [...] Active Damien Holbrook PA-C Emergency Provider Active Life Claims Examiner Relationship Specialty Start Date End Date Coleman Brower, [address] [place] [address] PCP - General Internal Medicine 01/05/23 Melinda Verduzco, ASSEMBLER [employer] [address] [address] Referring Orthopedics 11/24/22 Life Claims Examiner Relationship Specialty Start Date End Date Coleman Brower DO [address] [place] [address] PCP - General Internal Medicine 01/05/23 Melinda Verduzco, ASSEMBL[employer] [address] [place] [address] [address] Referring Orthopedics 11/24/22 Life Claims Examiner Relationship Specialty Start Date End Date Coleman Brower DO [address] [place] [address] PCP - General Internal Medicine 01/05/23 Melinda Verduzco, ASSEMBLER [employer]CLE [address] [place] [address] Referring Orthopedics 11/24/22 Life Claims Examiner Relationship Specialty [place] [address] [place] [address] PCP - General Internal Medicine 01/05/23 Melinda Verduzco, ASSEMBL[employer] [address] [place] [address] Referring Orthopedics 11/24/22 Life Claims Examiner Relationship Specialty Start Date End Date Coleman Brower DO [address] [place] [address] PCP - General 01/08/18 Team Status: Inactive [...] May 21, 2023 End: May 21, 2023 Life Claims Examiner Relationship Specialty Start Date End Date Coleman Brower DO [address] [place] [address] PCP - General 01/08/18 Life Claims Examiner Relationship Specialty Start Date End Date Coleman Brower DO [address] [place] [address] PCP - General 01/08/18 Life Claims Examiner Relationship Specialty Start Date End Date Coleman Brower, DO [address] [place] [address] PCP - General Internal Medicine 01/05/23 Melinda Verduzco, ASSEMBLER [employer]CLE [address] [address] Referring Orthopedics 11/24/22 Life Claims Examiner Relationship Specialty Start Date End Date Coleman Brower DO [address] [place] [address] PCP - General Internal Medicine 01/05/23 Melinda Verduzco, ASSEMBLER [employer]CLE [address] [address] Referring Orthopedics 11/24/22 Life Claims Examiner Relationship Specialty Start Date End Date Coleman Brower, DO [address] [place] [id number] PCP - General Internal Medicine 01/05/23 Melinda Verduzco, ASSEMBLER B[employer]CLE [address] [place] [address] Referring Orthopedics 11/24/22 Life Claims Examiner Relationship Specialty Start Date End Date Coleman Brower DO [address] [place] [address] PCP - General Internal Medicine 07/12/23 Life Claims Examiner Relationship Specialty Start Date End Date Coleman Brower DO PCP - General Internal Medicine 07/12/23 Life Claims Examiner Relationship Specialty Start Date End Date Coleman Brower DO [address] [place] [address] PCP - General Internal Medicine 01/05/23 Melinda Verduzco, ASSEMBLER BICYCLE [address] [place] [address] [address] Referring Orthopedics 11/24/22 Life Claims Examiner Relationship Specialty Start Date End Date Coleman Brower DO [address] [facility] [place] [address] PCP - General Internal Medicine 01/05/23 Melinda Verduzco, ASSEMBLER BICYCLE [address] [place] [address] [address] Referring Orthopedics 11/24/22 Team Status: Inactive Member [...] and content) DATE CREATED AUTHOR 08/05/2022 [facility] DATE CREATED AUTHOR AUTHOR'S ORGANIZ ATION 06/13/2023 [facility] DATE CREATED AUTHOR AUTHOR'S ORGANIZ ATION 06/29/2023 [facility] DATE CREATED AUTHOR AUTHOR'S ORGANIZ ATION 09/10/2023 [facility] DATE CREATED AUTHOR AUTHOR'S ORGANIZ ATION 09/20/2023 [facility] DATE CREATED AUTHOR AUTHOR'S ORGANIZ ATION 09/27/2023 [facility] DATE CREATED AUTHOR AUTHOR'S ORGANIZ ATION 10/29/2023 [facility] FOR RECORDS PERTAINING [...] BE BASED ON THE PRIMARY CLINICAL RECORDS. [facility] [employer] [facility]. provides no warranty or guarantee of the accuracy or completeness of information in this document.
--- NOTE | 2023-11-23 07:42 | CT_ITS ---
[address] [address] Patient Name: ESME KAMINSKI MRN: [id number] date: 1960 Sex: M Assigned Patient Location: CT Current Patient Location: Accession/Order Number: [id number] Exam Date: 11/23/2023 08:45 Report Date: 11/26/2023 10:09 At the request of: VITALIY BROWER Procedure: CT abdomen pelvis w con EXAMINATION: CT abdomen pelvis w con HISTORY: Acute Right Flank Pain COMPARISON: No relevant comparison available. TECHNIQUE: Axial, Coronal, and Sagittal images were obtained without and/or with IV contrast as indicated by examination type. Dose reduction techniques were achieved by using automated exposure control and/or adjustment of mA and/or kV according to patient size and/or use of iterative reconstruction technique. FINDINGS: LUNG BASES: No visible pulmonary or pleural disease. LIVER: No enlargement, atrophy, suspicious density, or significant focal lesion. BILIARY: No dilatation or calcification. PANCREAS: No lesion, fluid collection, or abnormal duct dilatation. SPLEEN: No enlargement or focal lesion. ADRENALS: No mass or enlargement. KIDNEYS: No mass, obstruction, or calcification. BOWEL/MESENTERY: Diverticulosis of sigmoid colon without acute inflammatory changes. No visible mass, obstruction, or bowel wall thickening. AORTA/VASCULAR: No aneurysm or dissection. RETROPERITONEUM: No mass or adenopathy. LYMPH NODES: No adenopathy. URINARY BLADDER: No visible focal wall thickening, lesion, or calculus. PELVIC ORGANS: No visible mass. Pelvic organs appropriate for patient age. ABDOMINAL WALL: No mass or hernia. BONES: No bony lesion or fracture. OTHER: Negative. CT/CT abdomen pelvis w con IMPRESSION: 1. No visible urinary tract calculi, mass, obstructive uropathy. 2. A nonobstructing stone within the distal ureters cannot be completely excluded since this area is obscured by metallic streak artifact from bilateral hip replacements. 3. Distal colonic diverticulosis. No acute findings. 4. No suspicious findings to account for patient's symptoms. Electronically authenticated by: BIRD CALLAWAY Date: 11/26/2023 10:09
== END 2023-11-23 07:37 | disposition home or self-care (01) ==
PROVIDERS: PCP Internal Medicine; Visit Provider Internal Medicine
DX: R10.9 Unspecified abdominal pain (principal); I48.91 Unspecified atrial fibrillation; I25.10 Atherosclerotic heart disease of native coronary artery without angina pectoris; I10 Essential (primary) hypertension; Z79.01 Long term (current) use of 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; K57.90 Diverticulosis of intestine, part unspecified, without perforation or abscess without bleeding
CPT/HCPCS: 74177; Q9967

== ENCOUNTER 2024-04-19 12:07 | Emergency (ER) | payer MEDICARE, SELFPAY ==
[2024-04-19 12:15] VITALS: BP 143/101; PULSE 118; TEMP 36.8; O2SAT 95; BMI 31.5
--- OUTSIDE RECORDS SUMMARY | 2024-04-19 12:19 | XMS_ITS | CCD ---
Author Organization [facility] Care Team Providers Care Management Trainee Name Role Phone Pcp, No Primary Care Provider UnavailColeman Santoyo DO Primary Care Provider Sarai Mendez II Unavailable Jonathan Samano Unavailable Melinda Verduzco Unavailable DO Coleman Brower Primary Care Provider MD Sarai Mendez II Attending Provider DO Coleman Brower Attending Provider DO Coleman Brower Primary Care Provider DO Coleman Brower Attending Provider MD Chio Nichole Attending Provider Chio Nichole Unavailable DO Coleman Brower Primary Care Provider MD Jonathan Samano Attending Provider DO Coleman Brower Primary Care Provider STEPHEN Guzman Emergency Provider [phone] Coleman Brower Unavailable DO Coleman Brower Primary Care Provider MD Jonathan Samano Attending Provider [phone] STEPHEN Guzman Emergency Provider RASHAD Verduzco Attending Provider [phone] Jonathan Shrestha Unavailable DR COLEMAN BROWER Attending Unavailable BALL, DR BURKS Primary Care Unavailable BALL, DR BURKS Admitting Unavailable INOCENTE, DR BURKS Primary Care Unavailable MISC, DR JERNIGAN Consulting Unavailable INOCENTE, DR BURKS Admitting Unavailable BALL, DR BURKS [...] DAVID DWYER Attending Unavailable THERESA PRAKASH Attending UnavailTHERESA Payne Referring Unavailabl e BALL, COLEMAN E Primary Care Unavailable SARAI VELASCO Attending Unavailable BALL, COLEMAN E Referring Unavailable BALL, COLEMAN E Primary Care Unavailable Ball, DO Coleman Primary Care Provider MD Sarai Mendez II Attending Provider RASHAD Verduzco Attending Provider PROVIDER, UNKNOWN Referring Unavailable BALL, COLEMAN E Primary Care Unavailable Ball DO, Coleman E Primary Care Provider MD Antonio Steele Attending Provider MD Antonio Steele Referring Provider Ball DO, Coleman E Primary Care Provider Ball, DO Coleman Primary Care Provider [phone] MD Erin Suresh Emergency Provider MD Elliott Talley Admit Provider MD Elliott Talley Attending Provider MD Sally Alex Attending Provider Ball DO, Coleman E Primary Care Provider SANTOS CABRERA Attending Unavailable Ball, DO Coleman Primary Care Provider Luba MITCHELL.MICHAELMelinda Unavailable [phone] BALL, COLEMAN E Primary Care Unavailable BALL, COLEMAN E Primary Care Unavailable MIRIAM, HELADIO Referring Unavailable MIRIAM, HELADIO Attending Unavailable BALL, COLEMAN E Primary Care Unavailable BALL, COLEMAN E Primary Care Unavailable MIRIAM, HELADIO Referring Unavailable BALL, COLEMAN E Primary Care Unavailable MIRIAM, HELADIO Referring Unavailable MIRIAM, HELADIO Attending Unavailable BALL, COLEMAN E Primary Care Unavailable MIRIAM, HELADIO Attending Unavailable BALL, COLEMAN E Primary Care Unavailable MIRIAM, HELADIO Referring Unavailable BIRD KOWALSKI Attending Unavailable ANTONIO STEELE Referring Unavailable BALL, COLEMAN E Primary Care Unavailable Ball, DO Coleman Primary Care Provider [phone] MD Mehrdad Mcmanus Attending Provider [phone] MD Bird Kowalski Attending Provider [phone] Sarai Mendez II Admitting Unavailabl e Sarai Mendez II Attending Unavailabl e Ball, Coleman Primary Care Unavailable Asaad, Bryantad Attending Unavailable Asaad, Imad Admitting Unavailable Ball, Coleman Primary Care Unavailable Sarai Mendez II Attending Unavailabl e Sarai Mendez II Admitting Unavailabl e Ball, Coleman Primary Care Unavailable Gibson II, Sarai Antunez Admitting Unavailabl e Andrea II, Sarai Antunez Attending Unavailabl e Ball, Colemna Primary Care Unavailable DoElliott weber Admitting Unavailab ron Sally Alex Attending Unavailable Ball, Coleman Primary Care Unavailable Bird Kowalski Attending Unavailable FilBird kim Admitting Unavailable Ball, Coleman Primary Care Unavailable Traboulssi, Mourhaf Referring Unavailable Traboulssi, Mourhaf Attending Unavailable Traboulssi, Mourhaf Admitting Unavailable Ball, Coleman Primary Care Unavailable AvaMelinda flores Attending Unavailable Melinda Verduzco Admitting Unavailable Ball, Coleman Primary Care Unavailable Andrea II, Sarai Antunez Attending Unavailabl e Andrea II, Sarai Antunez Admitting Unavailabl e Ball, Coleman Primary Care Unavailable Ball, DO Coleman Primary Care Provider MD Mehrdad Mcmanus Attending Provider MD Bird Kowalski Attending Provider BIRD KOWALSKI Admitting Unavailable BIRD KOWALSKI Attending Unavailable BALL, COLEMAN E Primary Care Unavailable BIRD KOWALSKI Admitting Unavailable BIRD KOWALSKI Attending Unavailable BALL, COLEMAN E Primary Care Unavailable BIRD KOWALSKI Referring Unavailable BALL, COLEMAN E Primary Care Unavailable BIRD KOWALSKI Admitting Unavailable BIRD KOWALSKI Attending Unavailable Ball DO, Coleman Primary Care Provider Mehrdad Mcmanus MD Attending Provider Bird Kowalski MD Attending Provider TRABNASRIN, MOURUMERF Attending Unavailable BALL, COLEMAN E Primary Care Unavailable TRABOULSSI, MOURHAF Referring Unavailable BALL, COLEMAN E Primary Care Unavailable TRABOULSSI, MOURHAF Attending Unavailable TRABOULSSI, MOURHAF Referring Unavailable BALL, COLEMAN E Primary Care Unavailable TRABOULSSI, MOURHAF Attending Unavailable BALL, COLEMAN E Primary Care Unavailable Allergies Allergy Classification Reported Allergen(s) Allergy Type Date of Onset Reaction(s) Facility (20 sources) Acetaminophen / oxyCODONE Drug Allergy Unknown [facility] Other (20 sources) atorvastatin Drug Allergy 05-07-19 24 Unknown, Unknown Reaction [facility] (20 sources) predniSONE; 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: [PREDNISONE] Drug Allergy 01-27-20 23 Other, Headache [facility] (20 sources) Simvastatin Drug Allergy 01-02-20 13 Unknown [facility] [employer] Other (1 source) patient allergy list reviewed by nurse or physicia Propensity to adverse reactions 02-18-20 13 Comment:Done OTOY Other (4 sources) Acetaminophen; 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: [acetaminophen] Drug Allergy 05-07-19 24 Unknown Reaction [facility] (4 sources) oxyCODONE; 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: [oxycodone] Drug Allergy 05-07-19 24 Unknown Reaction [facility] (1 source) atorvastatin Drug Allergy 05-07-19 [facility] Repository Medications Current Medications Medication Drug Class(es) [...] Start: 06-17-2021 take 2 tablets by mo azh every eight hours for pain Acetaminophen 500 MG 2 tablets for pain Orally every 8 hrs for 30 days MED TO BED UPON DISCHARGE. DOS: 07/04/2021 Jun, Active Start: 01-29-2017 End: 02-13-2023 Acetaminophen (Tylenol Arthr itis Pain) 650 mg Tablet Extended Release Discontinued 1300 MG PO Twice daily January 28, 2017 11:00pm February 13, 2023 9:43am [facility] Mini [facility] - (8 sources) Start: 08-25-2022 Start: 08-25-2022 [facility]eroCh[facility] Mi ni Chamber - Use w/ Albuterol MDI inhaled every 6 hours as needed for 30 days August, Active allopurinol 100 mg oral tablet (20 sources) Xanthine Oxidase Inhibitor Start: 01-03-2024 take 1 tablet by mouth once daily Allopurinol 100 mg tablet Active 0 .ROUTE .COMPLEX 90 January 03, 2024 1:35pm TAKE 1 TABLET BY MOUTH EVERY DAY Start: 06-20-2021 End: 01-03-2024 take 1 tablet by mouth in the morning allopurinoL (ZYLOPRIM) 100 mg tablet Take 1 tablet (100 mg total) by mouth in the morning. 07/23/2021 Active Comment on above: Take 1 tablet by [facility] every afternoon. amoxicillin 500 mg oral capsule (4 sources) Penicillin-class Antibacterial Start: 9 Amoxicillin 500 MG 6 po 1 hour prior to dental and 3 po 6 hours after dental Orally as directed for 1 day Dec, Active Aspir-81 (20 sources) Aspir-81 Active Aspir-81 81 MG (20 sources) take 1 tablet by mouth once daily take 1 tablet by mouth once anamaria y Aspir-81 81 MG 1 tablet Orally Once a day Active aspirin 81 mg oral tablet (20 sources) Platelet Aggregation Inhibitor, Nonsteroidal Anti-inflammatory Drug Start: 06-17-2021 take 1 tablet by mouth twice daily Aspirin 81 MG 1 tablet Orally BID for 35 days MED TO BED UPON DISCHARGE. DOS: 07/04/2021 Jun, Active Start: 01-29-2017 Aspirin 81 mg Tablet,Delayed Release (Dr/Ec) Active 81 MG PO .2xweek January 28, 2017 11:00pm Comment on above: Take 81 mg by mouth. atorvastatin 80 mg oral tablet (20 sources) HMG-CoA Reductase Inhibitor Start: take 1 tablet by mouth once daily in the evening Atorvastatin 80 mg tablet Active 0 .ROUTE .COMPLEX September 19, 2023 11:53am TAKE 1 TABLET BY MOUTH ONCE EVERY EVENING Start: 01-29-2017 End: 09-19-2023 take 1 tablet by mouth once daily at bedtime Atorvastatin (Lipitor) 80 mg Tablet Discontinued 80 MG PO Daily at bedtime January 28, 2017 11:00pm September 19, 2023 11:53am End: 01-05-2023 take 1 tablet by mouth three times weekly atorvastatin 10 mg tablet Take 10 mg by mouth 3 times a WEEK. 0 01/05/2023 Discontinued (Course of therapy completed) Comment on above: Take 10 mg by mouth 3 times a WEEK. cefadroxil 500 mg oral capsule (10 sources) Cephalosporin Antibacterial Start: take 1 capsule by mouth every twelve hours Cefadroxil 500 MG 1 tablet Orally every 12 hrs for 7 days Med to Bed Upon Discharge DOS: 02/13/2023 Jan, Active Start: 06-17-2021 take 1 capsule by mo [facility] every twelve hours Cefadroxil 500 MG 1 tablet Orally every 12 hrs for 7 days MED TO BED UPON DISCHARGE. DOS: 07/04/2021 Jun, Active cholecalciferol 0.05 mg oral tablet (1 source) Vitamin D Start: 08-02-2023 take 1 tablet by mouth once Cholecalciferol (Vitamin D3) (D3 Dots) 50 mcg (2,000 unit) tablet Active 50 MCG PO every Sunday and July 12:00am clopidogrel 75 mg oral tablet (5 sources) P2Y12 Platelet Inhibitor Start: 02-18-2024 Clopidogrel 75 mg tablet Active MG PO February 18, 2024 12:00am End: 03-05-2023 take 1 tablet by mouth once daily clopidogrel (PLAVIX) 75 mg ORAL tablet Take one(1) tablet daily. 0 03/05/2023 Discontinued (Course of therapy completed) Comment on above: Take one(1) tablet d aily. codeine phosphate 2 mg/ml / guaiFENesin 20 mg/ml oral solution (2 sources) Opioid Agonist Start: 08-25-2022 take 10 mL by mouth once at bedtime as needed for cough guaiFENesin-Codeine 100-10 MG/5ML 10 mL as needed Orally q HS as needed for cough for 7 days August, Active docusate sodium 50 mg / sennosides, half-way 8.6 mg oral tablet (10 sources) Start: 01-31-2023 take 2 tablets by mouth every twenty-four hours Senokot S 8.6-50 MG 2 tablets Orally Once a day for 30 days Med to Bed Upon Discharge DOS: 02/13/2023 Jan, Active Start: 06-17-2021 take 2 tablets by mo [facility] every twenty-four hours Senokot S 8.6-50 MG [...] Active Start: 03-07-2023 take 1 tablet by [facility] every twelve hours Doxycycline Hyclate 100 MG 1 tablet Orally Twice a day for 14 days Feb, Active Start: 10-25-2022 take 1 capsule by [facility] twice daily Doxycycline Hyclate 100 MG 1 capsule Orally twice daily for 10 days Jan, Active Start: 05-29-2022 take 1 capsule by [facility] twice daily Doxycycline Hyclate 100 MG 1 [...] A TOTAL OF 8 WEEKS. 16 capsule 07/09/2023 Active Start: 11-22-2022 take 1 capsule by [facility] every week as needed Ergocalciferol 1.25 MG (06736 UT) 1 capsule Orally Once a Week for 60 days Nov, Not-Taking/PRN Start: 03-25-2021 take 1 capsule by [facility] every week Vitamin D (Ergocalciferol) 1.25 MG (48712 UT) 1 capsule Orally once weekly for 8 weeks Mar, Active Comment on above: (take by mouth with food twice a week, ONE CAPSULE ON SUNDAY AND ONE ON SUNDAY) FOR A TOTAL OF 8 WEEKS. escitalopram 20 mg oral tablet (20 sources) Serotonin Reuptake Inhibitor Start: take 1 tablet by mouth once daily Escitalopram Oxalate 20 mg tablet Active 0 .ROUTE .COMPLEX 90 December 23, 2023 4:50pm TAKE 1 TABLET BY MOUTH EVERY DAY Start: 06-29-2023 End: 12-23-2023 take 1 tablet by mouth once daily Escitalopram Oxalate 20 mg tablet Discontinued 20 MG PO Daily 90 June 29, 2023 9:35am December 23, 2023 4:50pm Start: 06-28-2023 End: 06-29-2023 take 1 tablet by mouth once daily Escitalopram Oxalate 10 mg tablet Discontinued 0 .ROUTE .COMPLEX 90 June 28, 2023 2:06pm June 29, 2023 9:36am TAKE 1 TABLET BY MOUTH EVERY DAY FOR 90 DAYS Start: 08-09-2022 End: 06-28-2023 take 1 tablet by mouth in the morning escitalopram (LEXAPRO) 10 mg tablet Take 1 tablet (10 mg total) by mouth in the morning. 12/05/2022 Active Comment on above: Take 1 tablet [...] (20 sources) Thiazide Diuretic, Aldosterone Antagonist Start: 04-08-2024 take 1 tablet by mouth once daily in the morning spironolacton-hydroCHLOROthiaz (ALDACTAZIDE) 25-25 mg per tablet TAKE 1 TABLET BY MOUTH EVERY DAY IN THE MORNING 90 tablet 1 04/08/2024 Active Start: 01-02-2023 End: 04-08-2024 take 1 tablet by mouth once in the morning spironolacton-hydroCHLOROthiaz (ALDACTAZ APOLLO) 25-25 mg per tablet Take 1 tablet by mouth in the morning. 90 tablet 3 01/02/2023 04/08/2024 Discontinued Comment on above: Take 1 tablet by [facility] every morning. levothyroxine sodium 0.15 mg oral tablet (20 sources) l-Thyroxine Start: 2 take 1 tablet by mouth once daily in the morning Levothyroxine (Synthroid) 150 mcg tablet Active 150 MCG PO Every morning June 19, 2021 11:00pm Start: 01-29-2017 End: 06-20-2021 take 1 tablet by mouth once daily Levothyroxine (Synthroid) 25 mcg Tablet Discontinued 25 MCG PO Daily January 28, 2017 11:00pm June 20, 2021 12:26pm take 1 tablet by [facility] in the morning levothyroxine (SYNTHROID, LEVOTHROID) 200 MCG tablet Take 1 tablet (200 mcg total) by mouth in the morning. Active take 1 tablet by [facility] [...] Active magnesium oxide 400 mg oral tablet (13 sources) Start: 4 take 1 tablet by mouth in the morning, then take 1 tablet by mouth at bedtime magnesium oxide (MAGOX) 400 mg tablet Indications: Hypomagnesemia Take 1 tablet (400 mg total) by mouth in the morning and 1 tablet (400 mg total) before bedtime. 180 tablet 5 06/13/2023 Active Start: 05-02-2023 take 1 tablet by [facility] every twenty-four hours Magnesium Oxide 400 MG 1 tablet as needed Orally Once a day for 30 days Apr, Active Comment on above: Take 400 mg by mouth . 24 hr metoprolol succinate 50 mg extended release oral tablet (20 sources) beta-Adrenergic Riri Start: 12-29-2022 take 1 tablet by mouth every hour metoprolol succinate ER (TOPROL XL) 50 mg 24 hr tablet Take 1 tablet by mouth every afternoon. 12/29/2022 Active Start: 02-09-2021 take 1 tablet by [facility] once daily metoprolol succinate XL (TOPROL-XL) 50 mg 24 hr tablet Take 1 tablet (50 mg total) by mouth daily. 90 tablet 02/09/2021 Active Start: 01-29-2017 End: 06-20-2021 take 1 tablet by mouth once daily Metoprolol Succinate (Toprol Xl) 25 mg Tablet Extended Release 24 Hr Discontinued 25 MG PO Daily January 28, 2017 11:00pm June 20, 2021 12:27pm Metoprolol Tartr ate 25 MG (Prior Auth: Rx Ref#:[id number]) Oral for 90 Active Comment on above: [...] 5 days Apr, Active polyethylene glycol 3350 68770 mg powder for oral solution (10 sources) [...] tablet (20 sources) Phosphodiesterase 5 Inhibitor Start: 06-28-19 take 1 tablet by mouth once daily as needed Sildenafil 100 mg tablet Active 100 MG PO Daily as needed for sexual activity June 27, 2023 11:00pm Start: 10-03-2022 take 1 tablet by [facility] [...] Virus Nucleoside Analog DNA Polymerase Inhibitor Start: 12-24-2023 take 1 tablet by mouth once daily Valacyclovir 500 mg tablet Active 0 .ROUTE .COMPLEX 90 December 24, 2023 12:29pm TAKE 1 TABLET BY MOUTH EVERY DAY Start: 06-20-2021 End: 12-24-2023 valACYclovir (VALTREX) 500 m g tablet 10/17/2021 Active Comment on above: Take 1 tablet by [facility] every afternoon. Completed/Discontinued Medications Medication Drug Class(es) Dates Sig (Normalized) Sig (Original) acetaminophen 325 mg / oxyCODONE hydrochloride 5 mg oral tablet (20 sources) Opioid Agonist Start: 05-22-2022 End: 01-26-2023 take 1 tablet by mouth every eight hours as needed for pain Oxycodone-Acetamin ophen (Percocet) 5-325 mg tablet Discontinued 1 TAB PO Q8H as needed for pain 01 09May 22, 2022 January 26, 2023 10:02am [id number] 200 actuat albuterol 0.09 mg/actuat metered dose inhaler (20 sources) beta2-Adrenergic Agonist Start: 06-28-2023 End: 08-02-2023 take 1 puff(s) by inhalation every six hours Albuterol Sulfate 90 mcg/actuation HFA aerosol inhaler Discontinued 2 PUFF INHALATION Every 6 hours June 27, 2023 11:00pm August 02, 2023 8:18am Start: 09-16-2022 take 2 puff(s) by mo uth every six hours albuterol HFA (PROVENTIL HFA, VENTOLIN HFA) 90 mcg/actuation inhaler inhale 2 puffs by mouth every 6 hours 09/16/2022 Active Start: 08-25-2022 take 2 puff(s) [...] tablet (20 sources) Benzodiazepine Start: 12-13-19 End: 12-07-19 take 1 tablet by mouth once daily at bedtime Alprazolam 0.5 mg tablet Discontinued 0.5 MG PO Daily at bedtime June 04, 2023 12:00am June 04, 2023 12:22pm Start: 06-09-2022 ALPRAZolam 0.5 MG TAKE 1 [...] 0.25 MG PO Daily at bedtime January 28, 2017 11:00pm June 04, 2023 12:08pm Comment on above: Take 0.5 mg by mouth daily at bedtime. Take 1 tablet by [facility] at bedtime as needed. amoxicillin 875 mg / clavulanate 125 mg oral tablet (8 sources) Penicillin-class Antibacterial Start: 09-01-19 24 End: 11-19-19 take 1 tablet by mouth twice daily Amoxicillin-Pot Clavulanate 875-125 mg tablet Discontinued 1 TAB PO Twice daily 14 7 September 01, 2023 9:30am November 19, 2023 1:23pm apixaban 5 mg oral tablet (20 sources) Factor Xa Inhibitor Start: 12-19-19 End: 02-18-20 24 take 1 tablet by mouth once daily at bedtime Apixaban (Eliquis) 5 mg tablet Discontinued 0 .ROUTE .COMPLEX 60 December 19, 2023 8:55pm February 18, 2024 11:15am TAKE 1 TABLET BY MOUTH EVERY MORNING AND BEFORE BEDTIME FOR 30 DAYS Start: 05-18-2023 take 1 tablet by [facility] once daily at bedtime ELIQUIS 5 mg tab(s) TAKE 1 TABLET BY MOUTH EVERY MORNING AND BEFORE BEDTIME FOR 30 DAYS 06/24/2023 Active Start: 05-18-2023 End: 12-19-2023 take 1 tablet by mouth twice daily Apixaban 5 mg tablet Discontinued 5 MG PO Twice daily June 27, 2023 11:00pm December 19, 2023 8:55pm take 1 tablet by [facility] every twelve hours Eliquis 5 MG 1 tablet Orally Twice a day Active Comment on above: TAKE 1 TABLET BY [facility] EVERY MORNING AND BEFORE BEDTIME FOR 30 DAYS atenolol 25 mg oral tablet (1 source) [...] Anti-inflammatory Drug Start: 2 End: 4 take 1 capsule by mouth once daily Celecoxib 200 mg capsule Discontinued 200 MG PO Daily June 27, 2023 11:00pm June 28, 2023 3:15pm Start: 06-17-2021 take 1 capsule by mo [facility] every twelve hours Celecoxib 200 MG 1 capsule with food Orally Twice a day for 30 day(s) MED TO BED UPON DISCHARGE. DOS: 07/04/2021 Jun, Active Comment on above: Take 1 capsule by mo [facility] every afternoon. colchicine 0.6 mg oral capsule (19 sources) Start: End: take 1 capsule by mouth every other day Colchicine 0.6 mg capsule Discontinued 0.6 MG PO .every other day August 01, 2023 11:00pm 2023 8:21am Start: 08-02-2023 take 0.6 mg by mouth once anamarai y Colchicine Active 0.6 MG PO Daily [...] a day as tolerated. May cause diarrhea. diazePAM 5 mg oral tablet (20 sources) Benzodiazepine Start: End: take 1 tablet by mouth once daily Diazepam 5 mg tablet Discontinued 5 MG PO Daily June 27, 2023 11:00pm August 02, 2023 8:17am Start: 06-12-2022 Valium 5 MG ta ke 1 tablet 1/2 hour prior to MRI . May repeat if needed. Orally Jun, Active take 1 tablet by [facility] every twenty-four hours diazePAM 5 MG 1 tablet as needed Orally Once a day Active hydroCHLOROthiazide 25 mg / triamterene 37.5 mg oral capsule (20 sources) Potassium-sparing Diuretic, Thiazide Diuretic Start: 06-20-2021 End: 06-28-2023 take 1 capsule by mouth once daily in the morning Triamterene-Hydrochlorothiazid 37.5-25 mg capsule Discontinued 1 CAP PO Every morning June 19, 2021 11:00pm June 28, 2023 3:16pm take 1 capsule by mouth every tw enty-four hours Comment on above: TAKE 1 CAPSULE BY [facility] EVERY DAY IN THE MORNING FOR 30 DAYS irbesartan 150 mg oral tablet (20 sources) Angiotensin 2 Receptor Riri Start: 2 End: 4 take 1 tablet by mouth once daily in the morning Irbesartan 150 mg tablet Discontinued 150 MG PO Every morning June 19, 2021 11:00pm June 28, 2023 3:16pm lisinopril 10 mg oral tablet (20 sources) Angiotensin Converting Enzyme Inhibitor Start: 7 End: 2 take 1 tablet by mouth once daily Lisinopril 10 mg Tablet Discontinued 10 MG PO Daily January 28, 2017 11:00pm June 20, 2021 12:24pm take 1 tablet by [facility] every twenty-four hours Lisinopril 20 MG 1 tablet Orally Once a day Active meloxicam 7.5 mg oral tablet (4 sources) Nonsteroidal Anti-inflammatory Drug Start: 11-17-2013 End: 03-05-2023 take 1 tablet by mouth once daily meloxicam 7.5 mg tablet Take 1 tablet by mouth once daily. 30 tablet 1 11/17/2013 03/05/2023 Discontinued (Course of therapy completed) Comment on above: Take 1 tablet by [facility] once daily. methylPREDNISolone 4 mg oral tablet (20 sources) Corticosteroid Start: 12-15-2023 methylPREDNISolone (MEDROL) 4 mg Indications: Elevated sed rate , Elevated C-reactive protein (CRP) , PMR (polymyalgia rheumatica) ([facility]) Day 1=6tabs with food, Day 2=5tabs, Day 3=4tabs, Day 4=3tabs, Day 5=2tabs, Day 6=1tab, No NSAIDs on med 21 tablet 1 12/15/2023 Active Start: 09-05-2023 End: 12-13-2023 methylPREDNISolone (MEDROL) 4 mg Indications: Elevated sed rate , Elevated C-reactive protein (CRP) , PMR (polymyalgia rheumatica) ([facility]) Day 1=6tabs with food, Day 2=5tabs, Day 3=4tabs, Day 4=3tabs, Day 5=2tabs, Day 6=1tab, No NSAIDs on med 21 tablet 1 09/05/2023 12/13/2023 Discontinued Start: 08-01-2023 End: 02-18-2024 take 1 tablet by mouth twice daily Methylprednisolone (Medrol) 4 mg tablet Discontinued 4 MG PO Twice daily 60 30 December 20, 2023 1:52pm February 18, 2024 11:15am Start: 07-05-2023 End: 09-05-2023 take 1 tablet by mouth every other day Methylprednisolone (Medrol) 4 mg tablet Active 4 MG PO Q2D August 01, 2023 12:00am Start: 06-28-2023 methylPREDNISo lone (MEDROL) 4 mg Indications: PMR (polymyalgia rheumatica) (HCC) , Elevated [...] 03/05/2023 Active Start: 11-23-2022 End: 06-06-2023 take 1 tablet by mouth once daily in the morning Methylprednisolone 4 mg tablet Discontinued 4 MG PO Every morning January 25, 2023 11:00pm June 06, 2023 1:35pm take 1 tablet by [facility] once [...] TABLET BY MOUTH EV RANDOLPH OTHER DAY mupirocin 0.02 mg/mg topical ointment (20 sources) RNA Synthetase Inhibitor Antibacterial Start: 06-28-2023 End: 08-02-2023 Mupirocin 2 % ointment Discontinued 1 APPLIC TOPICAL Twice daily June 27, 2023 11:00pm August 02, 2023 8:18am Start: 10-25-2022 Mupirocin 2 % 1 application Externally Twice a day for 10 days Jan, Active Sod Picosulf-Mag Ox-Citric Ac (4 sources) Start: 12-06-2023 End: 12-31-2023 take 1 mL by mouth once daily in the morning Sod Picosulf-Mag Ox-Citric Ac (Clenpiq) 10 mg-3.5 gram- 12 gram/175 mL solution Discontinued 175 ML PO Every morning 350 December 05, 2023 11:00pm December 31, 2023 9:38am Follow instructions given by office Start: 12-06-2023 End: 12-31-2023 take 1 mL by mouth once daily in the morning Sod Picosulf-Mag Ox-Citric Ac (Clenpiq) 10 mg-3.5 gram- 12 gram/175 mL solution Discontinued 175 ML PO Every morning 350 December 06, 2023 12:00am December 31, 2023 10:38am Follow instructions given by office triamcinolone acetonide 40 mg/ml injectable suspension (20 [...] sources) Indigestion; 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: [Epigastric pain] Onset: 7 11-19-2023 Episodic Acute bronchitis (6 sources) Acute bronchitis due to other specified organisms; 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: [Acute bronchitis] Onset: 5 Episodic Acute posthemorrhagic anemia (1 source) Acute posthemorrhagic anemia Episodic Anxiety disorders (20 sources) Generalized anxiety disorder; 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: [Generalized anxiety disorder] 06-04-2023 Chronic Aortic; peripheral; and visceral artery aneurysms (2 sources) Thoracic aortic ectasia; 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: [Thoracic aortic ectasia ([facility]-HCC)] Onset: 4 Chronic Blindness and vision defects (1 source) Visual impairment; 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: [Unspecified visual loss] Chronic Cardiac dysrhythmias (20 sources) Persistent atrial fibrillation; 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: [Other persistent atrial fibrillation] Onset: 4 Resolved: 4 06-04-2023 Chronic Comment on above: d/t medication from covid Chronic ulcer of skin (1 source) Non-pressure chronic ulcer of unspecified part of unspecified lower leg with unspecified severity Chronic Complication of device; implant or graft (12 sources) Arteriosclerosis of autologous vein coronary artery bypass graft; 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: [Atherosclerosis of coronary artery bypass graft(s) without angina pectoris] Onset: 5 Resolved: 2 12-26-2017 Chronic Conditions associated with dizziness or vertigo (9 sources) Meniere's disease; 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: [Meniere's disease, bilateral] Chronic Coronary atherosclerosis and other heart disease (20 sources) Coronary arteriosclerosis; 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: [Atherosclerotic heart disease of [place] coronary artery without angina pectoris] Onset: 4 [...] Onset: 4 Resolved: 2 10-29-2013 Chronic Osteoporosis (5 sources) Primary osteoporosis; 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: [Age-related osteoporosis without current pathological fracture] Onset: 4 01-05-2023 Chronic Other aftercare (20 sources) Patient encounter status; 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: [Aftercare following joint replacement surgery] 06-05-2023 Chronic Other aftercare (14 sources) Aftercare following joint replacement surgery; 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: [Aftercare following joint replacement] Chronic Other aftercare (2 sources) Other fci (current) drug therapy; 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: [OTH HAND SEWER CURRENT DRUG THERAPY] Onset: 3 Episodic Other aftercare (2 sources) Long-term current use of drug therapy; 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: [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] Episodic Other aftercare (5 sources) Long-term current use of anticoagulant; 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] 07-27-2023 Episodic Other aftercare (2 sources) Encounter for follow-up examination after completed treatment for conditions other than malignant neoplasm; 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: [Encounter for follow-up examination after completed treatment for conditions other than malignant neoplasm] Onset: 4 Episodic Other circulatory disease (4 sources) Presence of other cardiac implants and grafts; 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: [Presence of other cardiac implants and grafts] Onset: 4 Chronic Other circulatory disease (9 sources) History of [...] sources) Polymyalgia rheumatica; 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: [PMR (polymyalgia rheumatica) ([facility])] Onset: 3 Chronic Other connective tissue disease [...] lower leg Episodic Other connective tissue disease (6 sources) Disorder of rotator cuff; 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: [Unspecified rotator cuff tear or rupture of right shoulder, not specified as traumatic] 10-02-2023 Episodic Other connective tissue disease (1 source) Biceps tendinitis; 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: [Bicipital tendinitis, right shoulder] 10-02-2023 Episodic Other connective tissue disease (9 sources) Bicipital tendinitis, right shoulder; 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: [Bicipital tenosynovitis] 10-02-2023 Episodic Other connective tissue disease (4 sources) Unspecified rotator cuff tear or rupture [...] source) Dysphagia, unspecified Episodic Other gastrointestinal disorders (4 sources) Personal history of other diseases of the digestive system; 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: [Personal history of other diseases of digestive system] 11-19-2023 Episodic Other hematologic conditions (17 sources) Macrocytosis; 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: [Other specified diseases of blood and blood-forming organs] Chronic Other hematologic conditions (4 sources) Other specified diseases of blood and blood-forming organs; 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: [OTH SPEC DZ BLOOD AND BLOOD-FORM ORG] Onset: 3 Chronic Other hematologic conditions (7 sources) ESR raised; 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: [Elevated erythrocyte sedimentation [...] elsewhere classified Chronic Other non-traumatic joint disorders (13 sources) Rotator cuff arthropathy of left shoulder; [...] nutritional; endocrine; and metabolic disorders (14 sources) Severe obesity; 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: [Morbid (severe) obesity [...] Chronic Other nutritional; endocrine; and metabolic disorders (18 sources) Hypomagnesemia; 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: [Hypomagnesemia] 06-12-2023 Chronic Other nutritional; endocrine; and metabolic disorders (1 source) Hypomagnesemia Chronic Other nutritional; endocrine; and metabolic disorders (2 sources) Body mass index (BMI) 35.0-35.9, adult; 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: [Body mass index (BMI) 35.0-35.9, adult] Onset: 4 Chronic Other nutritional; endocrine; and metabolic disorders (2 sources) Hyperuricemia; 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: [Hyperuricemia without signs of inflammatory arthritis and tophaceous disease] 01-05-2023 Episodic Other upper respiratory disease (12 sources) Seasonal allergic rhinitis; 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: [Other seasonal allergic rhinitis] Chronic Other upper respiratory disease (20 sources) Hoarse; 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: [Dysphonia] Episodic Other upper respiratory disease (1 source) Dysphonia Episodic Residual codes; unclassified (20 sources) Obstructive sleep apnea syndrome; 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: [Obstructive sleep apnea (adult) (pediatric)] 12-28-2017 Chronic Residual codes; unclassified (6 sources) Obstructive sleep apnea (adult) (pediatric); 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: [Obstructive sleep apnea (adult)(pediatric)] Chronic Residual codes; unclassified (2 sources) Insomnia; 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: [Insomnia, unspecified] Episodic Rheumatoid arthritis and related disease (20 [...] region] Onset: 8 Episodic Sprains and strains (17 sources) Strain of muscle(s) and tendon(s) of [...] Onset: 4 10-29-2013 Chronic Transient cerebral ischemia (12 sources) Vertebrobasilar territory transient ischemic attack; 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] Onset: 7 12-26-2017 Chronic Unclassified (1 source) Long-term current use of drug therapy; 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: [Long-term (current) use of other medications] Onset: 9 Unclassified (8 sources) Other persistent atrial fibrillation; 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: [Other [...] [Unilateral primary osteoarthritis, right hip] Onset: 3 Viral infection (2 sources) Molluscum [...] 08-08-2019 08-08-2019 Episodic Congestive heart failure; nonhypertensive (6 sources) Heart failure; 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: [Heart failure, unspecified] Resolved: 10-20-2021 10-20-2021 Chronic Coronary atherosclerosis and other heart disease (2 sources) Presence of aortocoronary bypass graft; 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: [Presence of aortocoronary bypass graft] Onset: 07-27-2023 Episodic Esophageal disorders (6 sources) Esophageal disorders; 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: [Gastro-esophageal reflux disease with esophagitis, without bleeding] Onset: 01-08-2017 Immunizations and screening for infectious disease (17 sources) Vaccination given; 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: [Encounter for immunization] [...] subsequent encounter] Resolved: 08-09-2020 Episodic Other aftercare (13 sources) Long-term current use of systemic steroid; 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: [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] Onset: 01-05-2023 01-05-2023 Episodic Other aftercare (2 sources) 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; 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: [detention (current) [...] Onset: 06-04-2015 Episodic Other connective tissue disease (13 sources) Pain of bilateral hands; 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: [Pain in right hand] Onset: 01-05-2023 01-05-2023 Episodic Other connective tissue disease (12 sources) Swelling of hand; 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: [Other specified soft tissue disorders] Onset: 01-05-2023 01-05-2023 Episodic Other gastrointestinal disorders (1 source) Diarrhea; 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: [Diarrhea] Onset: 03-15-2017 Episodic Other hematologic conditions (1 source) Elevated erythrocyte sedimentation rate; 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: [Elevated sed rate] Onset: 01-05-2023 Episodic Other liver diseases (2 sources) Abnormal levels of other serum enzymes; 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: [Elevated aldolase level] Onset: 01-05-2023 Episodic Other male genital disorders (2 sources) Hemospermia; 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: [Hematospermia] Onset: 07-10-2016 Episodic Other non-traumatic joint disorders (13 sources) Swelling of knee joint; 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: [Effusion, unspecified knee] Onset: 06-01-2009 Episodic Other non-traumatic joint disorders (2 sources) Pain in left hip; 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: [Left hip pain M25.552] Onset: 01-05-2021 Resolved: 02-22-2021 Episodic Other non-traumatic joint disorders (4 sources) Shoulder joint pain; 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: [Pain in right shoulder] Onset: 06-04-2015 Episodic Other non-traumatic joint disorders (13 sources) Pain in right hip joint; 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: [Pain in right hip] Onset: 01-05-2023 01-05-2023 Episodic Other non-traumatic joint disorders (9 sources) Pain in right knee; 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: [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, lower leg] Onset: 03-05-2023 03-05-2023 Episodic Other nutritional; endocrine; and metabolic disorders (1 source) Hyperuricemia without signs of inflammatory arthritis and tophaceous disease; 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: [Hyperuricemia] Onset: 01-05-2023 Episodic Other screening for suspected conditions (not mental disorders or infectious disease) (20 sources) Screening status; 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: [Encounter for screening for malignant neoplasm of colon] Onset: 06-14-2018 Resolved: 06-04-2023 Episodic Residual codes; unclassified (2 sources) Other specified health status; Translations: [Other specified health status] Onset: 10-18-2023 Episodic Viral infection (1 source) COVID-19 Results Test Name Value Interpretation Reference Range Facility Activated clotting timeon ACT Coag (Bld) 277 s High 89-169 [facility] Comment on above: Result Comment: Targ et ACT range will vary based on the patient population, clinical status, and surgical intervention occurring. Performed By: #### 3 184-9 #### RAPHAEL Blanco ([id number]) [facility]) [address] [place] [address] Basic metabolic 2000 panelon 01-29-2024 Anion gap [Moles/Vol] 13 mmol/L Normal 10-20 [facility] Comment on above: Performed By: #### 2 4321-2 #### RAPHAEL Blanco ([id number]) [facility]) [address] [place] [address] Calcium [Mass/Vol] 9.1 mg/dL Normal 8.6-10.6 [facility] Comment on above: Performed By: #### 2 4321-2 #### RAPHAEL Blanco ([id number]) [facility]) [address] [place] [address] Chloride [Moles/Vol] 100 mmol/L Normal 98-107 [facility] Comment on above: Performed By: #### 2 4321-2 #### RAPHAEL Blanco ([id number]) [facility]) [address] [place] [address] CO2 [Moles/Vol] 26 mmol/L Normal 21-32 [facility] Comment on above: Performed By: #### 2 4321-2 #### RAPHAEL QUINTERO L ([id number]) [facility]) [address] [place] [address] Creatinine [Mass/Vol] 1.02 mg/dL Normal 0.50-1.30 [facility] Comment on above: Performed By: #### 2 4321-2 #### RAPHAEL QUINTERO L ([id number]) [facility]) [address] [place] [address] Glomerular filtration rate/1.73 sq M.predicted 82 mL/min/1.73m*2 Normal >60 [facility] Comment on above: Result Comment: Calc ulations of estimated GFR are performed using the 2020 CKD-EPI Study Refit equation without the race variable for the IDMS-Traceable creatinine methods. https://jasn.asnjournals.org/content//ASN.27513 39933 Performed By: #### 2 4321-2 #### RAPHAEL Blanco ([id number]) [facility]) [address] [place] [address] Glucose [Mass/Vol] 142 mg/dL High 74-99 [facility] Comment on above: Performed By: #### 2 4321-2 #### RAPHAEL Blanco ([id number]) [facility]) [address] [place] [address] Potassium [Moles/Vol] 3.7 mmol/L Normal 3.5-5.3 [facility] Comment on above: Performed By: #### 2 4321-2 #### RAPHAEL Blanco ([id number]) [facility]) [address] [place] [address] Sodium [Moles/Vol] 135 mmol/L Low 136-145 [facility] Comment on above: Performed By: #### 2 4321-2 #### RAPHAEL Blanco ([id number]) [facility]) [address] [place] [address] Urea nitrogen [Mass/Vol] 18 mg/dL Normal 6-23 [facility] Comment on above: Performed By: #### 2 4321-2 #### RAPHAEL Blanco ([id number]) [facility]) [address] [place] [address] Blood type and Indirect anti body screen panel (Bld)on 01-29-2024 ABO group Nom (Bld) A Normal [facility] Comment on above: Performed By: #### 3 4532-2 #### RAPHAEL Blanco ([id number]) [facility] ([facility]) [address] [place] [address] Blood group antibody screen Ql Negative Normal [facility] Comment on above: Performed By: #### 3 4532-2 #### RAPHAEL Blanco ([id number]) [facility] ([facility]) [address] [place] [address] D Ag Ql (Bld) Positive Normal [facility] Comment on above: Result Comment: 2nd ABO test required. Order and Collect VERAB Performed By: #### 3 4532-2 #### RAPHAEL GUILLERMOLAIRASHARD Blanco ([id number]) [facility] ([facility]) [address] [place] [id number] CARDIAC CATHETERIZATION PROC EDUREon 01-29-2024 CARDIAC CATHETERIZATION PROCEDURE [facility], [employer], [address] [place] [address] Cardiovascular Catheterization Report Patient Name: ESME TOLENTINON Performing Physician: [id number] Kowalski MD Study Date: 01/29/2024 Verifying Physician: Elyssa Kowalski MD MRN/PID: [id number] Rip Sawyer/[place]: Ordering Provider: [id number] KOWALSKI Date of /Age: 9 1960 / 63 years Rip Sawyer: Gender: M Fellow: Bruno Almaguer MD Surgeon: Study: Left Atrial Appendage Closure Indications: Left Atrial Appendage Closure (LAAC): Pre-procedure antibiotics were given. Therapeutic ACT achieved at 250-300 seconds. Sterile prep and appropriate procedure timeout were performed. Using ultrasound guidance and Micropuncture technique dual access was obtained in the right common femoral vein. Two 8F sheaths Were placed using a modified Seldinger technique. The patient was administered IV Heparin and ACT Was confirmed to be therapeutic. An AcuNav ICE probe was then advanced through one of the sheaths And under ICE guidance, trans-septal puncture was with a versa cross (Vendavo), accessing the left atrium. The trans septal tract was then dilated with a Watchman FXD access sheath and the ICE probe was advanced through the dilated tract into the left atrium. Next, a 6 [place] angled pigtail was advanced through the delivery sheath into the left atrial appendage and angiography was performed via the pigtail. Sizing of the device was confirmed by ICE and angiography. We then advanced a 27 mm Watchman FLX PRO Closure Device and confirmed placement both by ICE and angiography. A 'tug test' was performed and confirmed stability. No color Doppler flow around the device was appreciated. 19% device compression was also confirmed. Having satisfied position, anchoring, size and seal criteria, the device was successfully deployed. All equipment was then removed and hemostasis was facilitated by Perclose and Vascade Closure devices. The patient was enrolled in a research study and data was included in the LAAO registry. Hemo Personnel: + +------- --+ Name Duty + +------- --+ Bird Kowalski MD, MD 1 + +------- --+ Hemodynamic Pressures: +----+ --+ +---------+- + + Site Date Time Phase Name Mean mmHg A-Wave mmHg V-Wave mmHg +----+ --+ +---------+- + + LA 01/29/2024 1:05:53 PM Rest 29 33 36 +----+ --+ +---------+- + + LA 01/29/2024 1:06:02 PM Rest 30 33 36 +----+ --+ +---------+- + + Cardiac Cath Post Procedure Notes: Post Procedure Diagnosis: Successful LAAO procedure. Blood Loss: Estimated blood loss during the procedure was 10 mls. Specimens Removed: Number of specimen(s) removed: none. CONCLUSIONS: 1. Successful Watchman FXL pro 27 mm implant. ICD 10 Codes: Atypical atrial flutter-I48.4 CPT Codes: Perc left atrial appendage closure (LAAC)-73225 [id number] Bird Kowalski MD Performing Physician Final Normal [facility] CBC W Auto Differential pane l (Bld)on 01-29-2024 Basophils (Bld) [#/Vol] 0.04 x10*3/uL Normal 0.00-0.10 [facility] Comment on above: Performed By: #### 5 7021-8 #### RAPHAEL QUINTERO L ([id number]) [facility]) [address] [place] [address] Basophils/100 WBC (Bld) 0.4 % Normal 0.0-2.0 [facility] Comment on above: Performed By: #### 5 7021-8 #### RAPHAEL GUILLERMOMOTZRASHARD L ([id number]) [facility]) [address] [place] [address] Eosinophils (Bld) [#/Vol] 0.02 x10*3/uL Normal 0.00-0.70 [facility] Comment on above: Performed By: #### 5 7021-8 #### RAPHAEL GUILLERMOMOTZRASHARD L ([id number]) [facility]) [address] [place] [address] Eosinophils/100 WBC (Bld) 0.2 % Normal 0.0-6.0 [facility] Comment on above: Performed By: #### 5 7021-8 #### RAPHAEL Blanco ([id number]) [facility]) [address] [place] [address] Erythrocyte distribution width (RBC) [Ratio] 11.8 % Normal 11.5-14.5 [facility] Comment on above: Performed By: #### 5 7021-8 #### RAPHAEL Blanco ([id number]) [facility]) [address] [place] [address] Hematocrit (Bld) [Volume fraction] 45.3 % Normal 41.0-52.0 [facility] Comment on above: Performed By: #### 5 7021-8 #### RAPHAEL Blanco ([id number]) [facility]) [address] [place] [address] Hemoglobin (Bld) [Mass/Vol] 15.6 g/dL Normal 13.5-17.5 [facility] Comment on above: Performed By: #### 5 7021-8 #### RAPHAEL Blanco ([id number]) [facility]) [address] [place] [address] Immature granulocytes (Bld) [#/Vol] 0.09 x10*3/uL Normal 0.00-0.70 [facility] Comment on above: Performed By: #### 5 7021-8 #### RAPHAEL Blanco ([id number]) [facility]) [address] [place] [address] Immature granulocytes/100 WBC (Bld) 0.9 % Normal 0.0-0.9 [facility] Comment on above: Result Comment: Paulina ture Granulocyte Count (IG) includes promyelocytes, myelocytes and metamyelocytes but does not include bands. Percent differential counts (%) should be interpreted in the context of the absolute cell counts (cells/UL). Performed By: #### 5 7021-8 #### RAPHAEL Blanco ([id number]) [facility]) [address] [place] [address] Lymphocytes (Bld) [#/Vol] 1.14 x10*3/uL Low 1.20-4.80 [facility] Comment on above: Performed By: #### 5 7021-8 #### RAPHAEL Blanco ([id number]) [facility]) [address] [place] [address] Lymphocytes/100 WBC (Bld) 11.0 % Normal 13.0-44.0 [facility] Comment on above: Performed By: #### 5 7021-8 #### RAPHAEL Blanco ([id number]) [facility]) [address] [place] [address] MCH (RBC) [Entitic mass] 35.9 pg High 26.0-34.0 [facility] Comment on above: Performed By: #### 5 7021-8 #### RAPHAEL Blanco ([id number]) [facility]) [address] [place] [address] MCHC (RBC) [Mass/Vol] 34.4 g/dL Normal 32.0-36.0 [facility] Comment on above: Performed By: #### 5 7021-8 #### RAPHAEL Blanco ([id number]) [facility]) [address] [place] [address] MCV (RBC) [Entitic vol] 104 fL High 80-100 [facility] Comment on above: Performed By: #### 5 7021-8 #### RAPHAEL Blanco ([id number]) [facility]) [address] [place] [address] Monocytes (Bld) [#/Vol] 0.74 x10*3/uL Normal 0.10-1.00 [facility] Comment on above: Performed By: #### 5 7021-8 #### RAPHAEL Blanco ([id number]) [facility]) [address] [place] [address] Monocytes/100 WBC (Bld) 7.1 % Normal 2.0-10.0 [facility] Comment on above: Performed By: #### 5 7021-8 #### RAPHAEL Blanco ([id number]) [facility]) [address] [place] [address] Neutrophils (Bld) [#/Vol] 8.36 x10*3/uL High 1.20-7.70 [facility] Comment on above: Result Comment: Perc ent differential counts (%) should be interpreted in the context of the absolute cell counts (cells/uL). Performed By: #### 5 7021-8 #### RAPHAEL Blanco ([id number]) [facility]) [address] [place] [address] Neutrophils/100 WBC (Bld) 80.4 % Normal 40.0-80.0 [facility] Comment on above: Performed By: #### 5 7021-8 #### RAPHAEL Blanco ([id number]) [facility]) [address] [place] [address] Nucleated RBC/100 WBC (Bld) [Ratio] 0.0 /100 WBCs Normal 0.0-0.0 [facility] Comment on above: Performed By: #### 5 7021-8 #### RAPHAEL Blanco ([id number]) [facility]) [address] [place] [address] Platelets (Bld) [#/Vol] 143 x10*3/uL Low 150-450 [facility] Comment on above: Performed By: #### 5 7021-8 #### RAPHAEL Blanco ([id number]) [facility]) [address] [place] [address] RBC (Bld) [#/Vol] 4.35 x10*6/uL Low 4.50-5.90 [facility] Comment on above: Performed By: #### 5 7021-8 #### RAPHAEL Blanco ([id number]) [facility]) [address] [place] [address] WBC (Bld) [#/Vol] 10.4 x10*3/uL Normal 4.4-11.3 [facility] Comment on above: Performed By: #### 5 7021-8 #### RAPHAEL Blanco ([id number]) [facility]) [address] [place] [address] CT WATCHMAN FULL CONTRASTon 01-29-2024 CT WATCHMAN FULL CONTRAST Interpreted By: Alonzo Holbrook, STUDY: CT WATCHMAN FULL CONTRAST; 01/29/2024 9:29 am INDICATION: Signs/Symptoms:A-fib, Pre-Watchman, MARIO Sizing, R/O MARIO Thrombus. ,I48.91 Unspecified atrial fibrillation (Multi) COMPARISON: None. ACCESSION NUMBER(S): [id number] ORDERING CLINICIAN: BIRD KOWALSKI TECHNIQUE: Using multi-detector CT technology, axial, sequential imaging (at 35% phase of cardiac size) with prospective gating was performed of the chest following the intravenous administration of 70 ML Omnipaque 350. Additional delayed axial, sequential imaging with prospective gating of chest was performed for better evaluation of left atrial appendage thrombus. For optimization of anatomic evaluation, multiplanar reconstruction, maximum intensity projections, and advanced 3-D off-line postprocessing were performed on a dedicated stand-alone workstation under the direct supervision of the interpreting physician. FINDINGS: POTENTIAL STUDY LIMITATIONS: None CORONARY ARTERIES: CORONARY ANATOMY: There is normal origin of the coronary arteries. Severe coronary artery calcifications are seen. Please note,the study is not optimized for evaluation of coronary arteries.Status post coronary artery stenting and coronary artery bypass grafting (CABG) with bypass grafts not optimally evaluated on present study. CARDIAC CHAMBERS: The cardiac chambers demonstrate normal atrioventricular and ventriculoarterial concordance, and systemic and pulmonary venous return. LEFT ATRIUM: Moderately dilated (29-cm2). There is no evidence of left atrium or left atrial appendage thrombus. The left atrial appendage orifice is oval in shape, measuring 3.1 cm x 1.35 cm in orthogonal dimensions and with an area of 3.36 cm. sq. Left atrial appendage depth is 2.4 cm. RIGHT ATRIUM: Mildly dilated (25.5-cm2) VENTRICLES: The left and right ventricles appear normal in appearance, although accurate size measurements are not possible on systolic phase imaging. INTERATRIAL SEPTUM: Intact. INTERVENTRICULAR SEPTUM: Intact. AORTIC VALVE: The aortic valve is trileaflet in morphology. No valvular thickening or calcifications. MITRAL VALVE: No valvular thickening/calcification. Mild mitral annular calcifications. THORACIC AORTA: Aortic root is dilated measuring 3.8 cm x 4.1 cm x 4.5 cm. Ascending thoracic aorta is also borderline ectatic measuring 4 cm. Rest of visualized the thoracic aorta normal in course and caliber.There are mild scattered atherosclerosis present, including calcified and noncalcified plaques.There is no evidence for acute aortic pathology, such as dissection, intramural hematoma, or contained rupture. The aortic arch is not included on this examination. PERICARDIUM: There is no pericardial effusion seen. CHEST: The trachea and central airways are patent. No endobronchial lesion is seen. The bilateral lungs are clear without evidence of focal consolidation, pleural effusion, or pneumothorax. No suspicious pulmonary nodules or masses. No evidence of lymphadenopathy within included mediastinum. Visualized esophagus appears within normal limits as seen. Central pulmonary arteries are mildly dilated and correlate with concern for pulmonary hypertension. UPPER ABDOMEN: There is diffuse hypoattenuation of visualized liver, suggestive of steatosis. Rest of visualized abdominal structures are grossly unremarkable. CHEST WALL AND OSSEOUS STRUCTURES: Status post median sternotomy. Otherwise, visualized chest wall is within normal limits. No acute osseous pathology.There are no suspicious osseous lesions within included chest. IMPRESSION: 1. No evidence of left atrial/left atrial appendage thrombus. 2. The left atrial appendage orifice is oval in shape, measuring 3.1 cm x 1.35 cm in orthogonal dimensions and with an area of 3.36 cm. sq. Left atrial appendage depth is 2.4 cm. 3. Aortic root is dilated measuring 3.8 cm x 4.1 cm x 4.5 cm. Ascending thoracic aorta is also borderline ectatic measuring 4 cm. Attention on follow-up CT/MR angiogram of the chest in 6 months is recommended to ensure stability. 4. Severe coronary artery calcifications are seen, status post CABG. Please note,the study is not optimized for evaluation of coronary arteries or bypass grafts. 5. Diffuse hepatic steatosis. Correlate with liver function tests. MACRO: Critical Finding: See findings. Notification was initiated on 01/29/2024 at 10:03 am by Alonzo Holbrook. (-YCF-) Instructions: Signed by: Alonzo Holbrook 01/29/2024 10:03 AM Dictation workstation: [id number] [facility] Comment on above: Order Comment: Lida l EF - 750mL water PO over 3 hours pre scan and 250mL post scan. Encourage adequate PO intake post. Coagulation tissue factor in ducedon 01-29-2024 PT Coag (PPP) [Time] 11.0 s Normal 9.8-12.8 [facility] Comment on above: Performed By: #### 5 902-2 #### RAPHAEL Blanco ([id number]) [facility]) [address] [place] [address] ECG 12-LEADon 01-29-2024 ECG 12-LEAD Ventricular Rate 71 Atrial Rate 71 P-R Interval 198 QRS Duration 114 Q-T Interval 430 QTC Calculation(Bazett) 467 P Grant 20 R Grant -10 T Grant 114 QRS Count 12 Q Onset 225 P Onset 126 P Offset 191 T Offset 440 QTC Fredericia 455 Diagnosis Sinus rhythm with occasional Premature ventricular complexes Inferior infarct , age undetermined Abnormal ECG No previous ECGs available Confirmed by Adrien Burk ([id number]) on 01/29/2024 4:23:52 PM Normal [facility] Magnesiumon 01-29-2024 Magnesium [Mass/Vol] 1.43 mg/dL Low 1.60-2.40 [facility] Comment on above: Performed By: #### 1 9123-9 #### RAPHAEL Blanco ([id number]) [facility] ([facility]) [address] [place] [address] PT Coag (PPP) [Time]on 01-28 INR Coag (PPP) [Relative time] 1.0 Normal 0.9-1.1 [facility] Comment on above: Performed By: #### 5 902-2 #### RAPHAEL Blanco ([id number]) [facility] ([facility]) [address] [place] [id number] TRANSTHORACIC ECHO (TTE) RAMOS ITEDon 01-29-2024 TRANSTHORACIC ECHO (TTE) [facility], [address] [place] [address] and TRANSTHORACIC ECHOCARDIOGRAM REPORT Patient Name: ESME STEVEN Reading Physician: [id number] Haris Beverly MD Study Date: 01/29/2024 Ordering Provider: [id number] SAMMI Moreno BEEBE MRN/PID: [id number] Fellow: Nurse: Date of /Age: 9 1960 / 63 years Seismic Survey Assistant: Tanisha VASQUEZ Gender: M Additional Staff: Height: 177.00 cm Admit Date: 01/29/2024 Weight: 110.68 kg Admission Status: Inpatient - Routine BSA / BMI: 2.26 m2 / 35.33 kg/m2 Blood Pressure: 138/84 mmHg Department Location: [facility] Study Type: TRANSTHORACIC ECHO (TTE) LIMITED Diagnosis/ICD: Presence of other cardiac implants and grafts-Z95.818 Indication: Post LAAO CPT Code: Echo Limited-87255 Patient History: Pertinent History: A-Fib, CAD, Hyperlipidemia and Cardiomyopathy. CABG. Study Detail: The following Echo studies were performed: 2D and M-Mode. Technically challenging study due to patient lying in supine position, body habitus and prominent lung artifact. PHYSICIAN INTERPRETATION: Left Ventricle: Left ventricular ejection fraction is low normal, by visual estimate at 50-55%. Left venticular wall motion is abnormal. The left ventricular cavity size is mildly dilated. There is paradoxical septal wall motion. Left ventricular diastolic filling was not assessed. There is basilar inferior and inferolateral hypokinesia. Left Atrium: The left atrium is enlarged. Right Ventricle: The right ventricle is mildly enlarged. Unable to determine right ventricular systolic function. Right Atrium: The right atrium is enlarged. Aortic Valve: The aortic valve is trileaflet. Aortic valve regurgitation was not assessed. Mitral Valve: The mitral valve is normal in structure. There is mild to moderate mitral annular calcification. Mitral valve regurgitation was not assessed. Tricuspid Valve: The tricuspid valve was not well visualized. Tricuspid regurgitation was not assessed. Pulmonic Valve: The pulmonic valve was not assessed. Pulmonic valve regurgitation was not assessed. Pericardium: Trivial pericardial effusion. There is an anterior clear space. Aorta: The aortic root is abnormal. There is mild dilatation of the aortic root. In comparison to the previous echocardiogram(s): Compared with study dated 01/29/2024, no significant change. CONCLUSIONS: 1. Poorly visualized anatomical structures due to suboptimal image quality. 2. Left ventricular ejection fraction is low normal, by visual estimate at 50-55%. 3. Abnormal left venticular wall motion. 4. Left ventricular cavity size is mildly dilated. 5. There is basilar inferior and inferolateral hypokinesia. 6. Unable to determine right ventricular systolic function. 7. Mildly enlarged right ventricle. 8. The left atrium is enlarged. RECOMMENDATIONS: Utilizing an FDA cleared automated machine learning algorithm (EchoGo Heart Failure by [employer]), the analysis of the apical 4-chamber echocardiogram suggests the presence of heart failure with preserved ejection fraction (HFpEF)*. Clinical correlation looking for additional heart failure signs and symptoms is recommended, as a definite diagnosis of heart failure cannot be made by imaging alone. *Per ACC/AHA/HFSA universal diagnosis of heart failure, HFpEF is defined as 1) signs and symptoms leading to clinical diagnosis of heart failure, 2) an ejection fraction of at least 50%, and 3) evidence of elevated intra-cardiac filling pressures by echocardiography, BNP elevation, or catheterization. QUANTITATIVE DATA SUMMARY: LV SYSTOLIC FUNCTION BY 2D PLANIMETRY (MOD): Normal Ranges: EF-Visual: 53 % LV EF Reported: 53 % [id number] Haris Beverly MD Electronically signed on 01/29/2024 at 3:36:47 PM Final Normal [facility] TRANSTHORACIC ECHO (TTE) LIMITED [facility], [address] [place] [address] and TRANSTHORACIC ECHOCARDIOGRAM REPORT Patient Name: ESME TOLENTINON Reading Physician: [id number] Savana Williamson MD Study Date: 01/29/2024 Ordering Provider: [id number] SAMMI BEEBE MRN/PID: [id number] Fellow: Nurse: Date of /Age: 9 1960 / 63 years Seismic Survey Assistant: Angela Tran RDCS Gender: M Additional Staff: Height: 177.80 cm Admit Date: Weight: 110.68 kg Admission Status: Inpatient - Routine BSA / BMI: 2.27 m2 / 35.01 kg/m2 Blood Pressure: 121/71 mmHg Department Location: [facility] Study Type: TRANSTHORACIC ECHO (TTE) LIMITED Diagnosis/ICD: Encounter for other preprocedural examination-Z01.818 Indication: Pre LAAO CPT Code: Echo Limited-66754 Patient History: Pertinent History: Persistent afib, ICM, HL. Study Detail: The following Echo studies were performed: 2D. Technically challenging study due to patient lying in supine position. PHYSICIAN INTERPRETATION: Left Ventricle: The left ventricle was not well visualized. The left ventricular ejection fraction could not be measured. Left venticular wall motion is abnormal. The left ventricular cavity size is normal. Left ventricular diastolic filling was not assessed. LV not well seen, unable to estimate LVEF, however appears to have an inferior/inferolateral wall [id number] abnormality. Left Atrium: The left atrium is enlarged. Right Ventricle: The right ventricle is normal in size. Right ventricular systolic function not assessed. Right Atrium: The right atrium was not assessed. Aortic Valve: The aortic valve was not assessed. Aortic valve regurgitation was not assessed. Mitral Valve: The mitral valve is normal in structure. There is moderate mitral annular calcification. Mitral valve regurgitation was not assessed. Tricuspid Valve: The tricuspid valve was not well visualized. Tricuspid regurgitation was not assessed. The right ventricular systolic pressure is unable to be estimated. Pulmonic Valve: The pulmonic valve was not assessed. Pulmonic valve regurgitation was not assessed. Pericardium: Trivial pericardial effusion. There is an anterior clear space. Aorta: The aortic root is abnormal. There is mild dilatation of the aortic root. Systemic Veins: The inferior vena cava was not well visualized. In comparison to the previous echocardiogram(s): There are no prior studies on this patient for comparison purposes. No prior echocardiogram available for comparison. CONCLUSIONS: 1. The left ventricle was not well visualized. The left ventricular ejection fraction could not be measured. 2. Abnormal left venticular wall motion. 3. LV not well seen, unable to estimate LVEF, however appears to have an inferior/inferolateral wall [id number] abnormality. 4. The left atrium is enlarged. 5. There is moderate mitral annular calcification. 6. Limited TTE pre LAAO closure device placement. 7. No prior echocardiogram available for comparison. QUANTITATIVE DATA SUMMARY: AORTA MEASUREMENTS: Normal Ranges: Ao Sinus, d: 4.30 cm (2.1-3.5cm) [id number] Savana Williamson MD Electronically signed on 01/29/2024 at 3:21:38 PM Final [facility] Automated basophil %Ordered By: Bird Kowalski on 01-24-2024 Basophils/100 WBC (Bld) 0.4 % . [facility] Comment on above: Performed By: #### C BC, BMP #### [address] Automated basophil countOrde red By: Bird Kowalski on 01-24-2024 Basophils (Bld) [#/Vol] 0.1 10*3/uL 0.0-0.2 [facility] Comment on above: Result Comment: PERF ORMED BY: [place] [address] PATHOLOGIST MUSEUM EXHIBIT DESIGNER ALAYNA CAPONE M.D. Performed By: #### C BC, BMP #### [address] Automated blood monocyte cou ntOrdered By: Bird Kowalski on 01-24-2024 Monocytes (Bld) [#/Vol] 0.7 10*3/uL 0.0-0.8 [facility] Comment on above: Performed By: #### C BC, BMP #### [address] Automated eosinophil %Ordere d By: Bird Kowalski on 01-24-2024 Eosinophils/100 WBC (Bld) 0.4 % . [facility] Comment on above: Performed By: #### C BC, BMP #### [address] Automated eosinophil countOr dered By: Bird Kowalski on 01-24-2024 Eosinophils (Bld) [#/Vol] 0.1 10*3/uL 0.0-0.45 [facility] Comment on above: Performed By: #### C BC, BMP #### [address] Automated monocyte %Ordered By: Bird Kowalski on 10-17-2024 Monocytes/100 WBC (Bld) 5.5 % . [facility] Comment on above: Performed By: #### C BC, BMP #### [address] Automated neutrophil %Ordere d By: Bird Kowalski on 01-24-2024 Neutrophils/100 WBC (Bld) 82.3 % . [facility] Comment on above: Performed By: #### C BC, BMP #### [address] Basic Metabolic Panelon 01-07 GFR/1.73 sq M.predicted MDRD (S/P/Bld) [Vol rate/Area] mL/min/{1.73_m2} Normal [facility] Comment on above: Performed By: #### C BC, BMP #### [address] Basophils Auto (Bld) [#/Vol] Ordered By: Bird Kowalski on 01-24-2024 Basophils (Bld) [#/Vol] Automated basophil count 0.0-0.2 [facility] Basophils/100 WBC Auto (Bld) Ordered By: Bird Kowalski on 01-24-2024 Basophils/100 WBC (Bld) Automated basophil % . [facility] Calcium [Mass/volume] in Ser um or PlasmaOrdered By: Bird Kowalski on 01-24-2024 Calcium [Mass/Vol] 9.6 mg/dL 8.6-10.[address] [facility] Comment on above: Result Comment: PERF ORMED BY: [place] [address] PATHOLOGIST MUSEUM EXHIBIT DESIGNER ALAYNA CAPONE M.D. Performed By: #### C BC, BMP #### [address] Calcium [Mass/Vol] Calcium [Mass/volume ] in Serum or Plasma 8.6-10.3 [facility] Carbon dioxide, total [Moles /volume] in Serum or PlasmaOrdered By: Bird Kowalski on 01-24-2024 CO2 [Moles/Vol] 28.4 mmol/L 21.0-31.0 [facility] Comment on above: Performed By: #### C BC, BMP #### [facility] [address] CO2 [Moles/Vol] Carbon dioxide, tota l [Moles/volume] in Serum or Plasma 21.0-31.0 [facility] Chloride [Moles/volume] in S ursula or PlasmaOrdered By: Bird Kowalski on 01-24-2024 Chloride [Moles/Vol] 101 mmol/L 98-107 [facility] Comment on above: Performed By: #### C BC, BMP #### [facility] [address] [place] [address] Chloride [Moles/Vol] Chloride [Moles/vol ume] in Serum or Plasma -107 [facility] Complete Blood Count Auto Di ffon 01-24-2024 Mean Corpuscular HGB Conc 34.3 g/dL Normal 32.5-35.6 [facility] Comment on above: Performed By: #### C BC, BMP #### [facility] [address] [place] [address] NRBC% 0.1 /100{WBC} Normal 0-0.5 [facility] Comment on above: Performed By: #### C BC, BMP #### [facility] [address] [place] [address] Creatinine [Mass/volume] in Serum or PlasmaOrdered By: Bird Kowalski on 01-24-2024 Creatinine [Mass/Vol] 0.98 mg/dL 0.70-1.30 [facility] Comment on above: Performed By: #### C BC, BMP #### [facility] [address] [place] [address] [place] Creatinine [Mass/Vol] Creatinine [Mass/v olume] in Serum or Plasma 0.70-1.30 [facility] Eosinophils Auto (Bld) [#/Vo l]Ordered By: Bird Kowalski on 01-24-2024 Eosinophils (Bld) [#/Vol] Automated eosinophil count 0.0-0.45 [facility] Eosinophils/100 WBC Auto (Bl d)Ordered By: Bird Kowalski on 01-24-2024 Eosinophils/100 WBC (Bld) Automated eosinophil % . [facility] Erythrocyte distribution wid th Auto (RBC) [Ratio]Ordered By: Bird Kowalski on 01-24-2024 Erythrocyte distribution width (RBC) [Ratio] Erythrocyte distribution width [Ratio] by Automated count 12.0-14.8 [facility] Erythrocyte distribution wid th [Ratio] by Automated countOrdered By: Bird Kowalski on 01-24-2024 Erythrocyte distribution width (RBC) [Ratio] 13.3 % 12.0-14.8 [facility] Comment on above: Performed By: #### C BC, BMP #### [facility] [address] [place] [address] [place] Erythrocytes [#/volume] in B lood by Automated countOrdered By: Bird Kowalski on 01-24-2024 RBC (Bld) [#/Vol] 4.40 10*6/uL 3.90-5.60 [facility] Comment on above: Performed By: #### C BC, BMP #### [facility] [address] [place] [address] [place] Glucose [Mass/volume] in Ser um or PlasmaOrdered By: Bird Kowalski on 01-24-2024 Glucose [Mass/Vol] 160 mg/dL High [address] [facility] Comment on above: ADA recommended refe rence rangeRandom Glucose Reference Range is dependent on time and content of last meal. Glucose of more than 200 mg/dL in a nonstressed, ambulatory subject supports the diagnosis of Diabetes Mellitus. Result Comment: [place] Glucose Reference Range is dependent on time and content of last meal. Glucose of more than 200 mg/dL in a nonstressed, ambulatory subject supports the diagnosis of Diabetes Mellitus. ADA recommended reference range Performed By: #### C BC, BMP #### [facility] [address] [place] [id number] [place] Glucose [Mass/Vol] Glucose [Mass/volume ] in Serum or Plasma High 70-100 [facility] Comment on above: ADA recommended refe rence rangeRandom Glucose Reference Range is dependent on time and content of last meal. Glucose of more than 200 mg/dL in a nonstressed, ambulatory subject supports the diagnosis of Diabetes Mellitus. Hematocrit Auto (Bld) [Volum e fraction]Ordered By: Bird Kowalski on 01-24-2024 Hematocrit (Bld) [Volume fraction] Hematocrit [Volume Fraction] of Blood by Automated count 38.8-50.0 [facility] Hematocrit [Volume Fraction] of Blood by Automated countOrdered By: Bird Kowalski on 01-24-2024 Hematocrit (Bld) [Volume fraction] 46.5 % 38.8-50.0 [facility] Comment on above: Performed By: #### C UMU, BMP #### [facility] [address] Hemoglobin [Mass/volume] in BloodOrdered By: Bird Kowalski on 01-24-2024 Hemoglobin (Bld) [Mass/Vol] 16.0 g/dL 13.0-17.0 [facility] Comment on above: Performed By: #### C UMU, BMP #### [address] Hemoglobin (Bld) [Mass/Vol] Hemoglobin [Mass/volume] in Blood 13.0-17.0 [facility] Leukocytes [#/volume] correc collins for nucleated erythrocytes in Blood by Automated counOrdered By: Bird Kowalski on 01-24-2024 WBC corrected for nucl RBC Auto (Bld) [#/Vol] 12.6 10*3/uL High 4.1-10.5 [facility] WBC corrected for nucl RBC Auto (Bld) [#/Vol] Leukocytes [#/volume] corrected for nucleated erythrocytes in Blood by Automated coun High 4.1-10.5 [facility] Leukocytes [#/volume] in Blo od by Automated countOrdered By: Bird Kowalski on 01-24-2024 WBC (Bld) [#/Vol] 12.6 10*3/uL High 4.1-10.5 [facility] Comment on above: Performed By: #### C BC, BMP #### [address] Lymphocytes Auto (Bld) [#/Vo l]Ordered By: Bird Kowalski on 01-24-2024 Lymphocytes (Bld) [#/Vol] Lymphocytes [#/volume] in Blood by Automated count 1.00-4.8 [facility] Lymphocytes [#/volume] in Bl ood by Automated countOrdered By: Bird Kowalski on 01-24-2024 Lymphocytes (Bld) [#/Vol] 1.4 10*3/uL 1.00-4.8 [facility] Comment on above: Performed By: #### C BC, BMP #### [facility] [address] Lymphocytes/100 WBC Auto (Bl d)Ordered By: Bird Kowalski on 01-24-2024 Lymphocytes/100 WBC (Bld) Lymphocytes/100 leukocytes in Blood by Automated count . [facility] Lymphocytes/100 leukocytes i n Blood by Automated countOrdered By: Bird Kowalski on 01-24-2024 Lymphocytes/100 WBC (Bld) 11.4 % . [facility] Comment on above: Performed By: #### C BC, BMP #### [facility] [address] MCH Auto (RBC) [Entitic mass ]Ordered By: Bird Kowalski on 01-24-2024 MCH (RBC) [Entitic mass] MCH [Entitic mass] by Automated count High 27.5-35.2 [facility] MCH [Entitic mass] by Automa collins countOrdered By: Bird Kowalski on 01-24-2024 MCH (RBC) [Entitic mass] 36.3 pg High 27.5-35.2 [facility] Comment on above: Performed By: #### C BC, BMP #### [facility] [address] MCHC Auto (RBC) [Mass/Vol]Or dered By: Bird Kowalski on 01-24-2024 MCHC (RBC) [Mass/Vol] 34.3 g/dL 32.5-35.6 [facility] MCHC (RBC) [Mass/Vol] MCHC [Mass/volume] by Automated count 32.5-35.6 [facility] MCV Auto (RBC) [Entitic vol] Ordered By: Bird Kowalski on 01-24-2024 MCV (RBC) [Entitic vol] MCV [Entitic volume] by Automated count High 83.5-101 [facility] MCV [Entitic volume] by Auto mated countOrdered By: Bird Kowalski on 01-24-2024 MCV (RBC) [Entitic vol] 105.8 fL High 83.5-101 [facility] Comment on above: Performed By: #### C UMU, BMP #### [facility] [address] Monocytes Auto (Bld) [#/Vol] Ordered By: Bird Kowalski on 01-24-2024 Monocytes (Bld) [#/Vol] Automated blood monocyte count 0.0-0.8 [facility] Monocytes/100 WBC Auto (Bld) Ordered By: Bird Kowalski on 01-24-2024 Monocytes/100 WBC (Bld) Automated monocyte % . [facility] Neutrophils Auto (Bld) [#/Vo l]Ordered By: Bird Kowalski on 01-24-2024 Neutrophils (Bld) [#/Vol] Neutrophils [#/volume] in Blood by Automated count High 1.8-7.7 [facility] Neutrophils [#/volume] in Bl ood by Automated countOrdered By: Bird Kowalski on 01-24-2024 Neutrophils (Bld) [#/Vol] 10.4 10*3/uL High 1.8-7.7 [facility] Comment on above: Performed By: #### C UMU, BMP #### [facility] [address] [place] [id number] [place] Neutrophils/100 WBC Auto (Bl d)Ordered By: Bird Kowalski on 01-24-2024 Neutrophils/100 WBC (Bld) Automated neutrophil % . [facility] No Panel InformationOrdered By: Bird Kowalski on 01-24-2024 Estimated GFR (CKD-EPI) > 60.0 mL/Min [facility] Creatinine Clearance (Chem N/A [facility] Nucleated erythrocytes [Pres ence] in Blood by Automated countOrdered By: Bird Kowalski on 01-24-2024 Nucleated RBC Auto Ql (Bld) 0.1 /100{WBC} 0-0.5 [facility] Nucleated RBC Auto Ql (Bld) Nucleated erythrocytes [Presence] in Blood by Automated count 0-0.5 [facility] Platelet mean volume Auto (B ld) [Entitic vol]Ordered By: Bird Kowalski on 01-24-2024 Platelet mean volume (Bld) [Entitic vol] Platelet mean volume [Entitic volume] in Blood by Automated count High 6.6-10.1 [facility] Platelet mean volume [Entiti c volume] in Blood by Automated countOrdered By: Bird Kowalski on 01-24-2024 Platelet mean volume (Bld) [Entitic vol] 10.2 fL High 6.6-10.1 [facility] Comment on above: Performed By: #### C BC, BMP #### [facility] [address] [place] [address] Platelets Auto (Bld) [#/Vol] Ordered By: Bird Kowalski on 01-24-2024 Platelets (Bld) [#/Vol] Platelets [#/volume] in Blood by Automated count 150-450 [facility] Platelets [#/volume] in Bloo d by Automated countOrdered By: Bird Kowalski on 01-24-2024 Platelets (Bld) [#/Vol] 155 10*3/uL 150-450 [facility] Comment on above: Performed By: #### C BC, BMP #### [facility] [address] [place] [address] [place] Potassium [Moles/volume] in Serum or PlasmaOrdered By: Bird Kowalski on 01-24-2024 Potassium [Moles/Vol] 4.3 mmol/L 3.5-5.1 [facility] Comment on above: Performed By: #### C BC, BMP #### [facility] [address] [place] [address] [place] Potassium [Moles/Vol] Potassium [Moles/v olume] in Serum or Plasma 3.5-5.1 [facility] RBC Auto (Bld) [#/Vol]Ordere d By: Bird Kowalski on 01-24-2024 RBC (Bld) [#/Vol] Erythrocytes [#/volu me] in Blood by Automated count 3.90-5.60 [facility] Serum or plasma anion gap de terminationOrdered By: Bird Kowalski on 01-24-2024 Anion gap [Moles/Vol] 10.9 mmol/L 6.0-15.0 [facility] Comment on above: Performed By: #### C BC, BMP #### [facility] [address] [place] [address] Anion gap [Moles/Vol] Serum or plasma an ion gap determination 6.0-15.0 [facility] Sodium [Moles/volume] in Ser um or PlasmaOrdered By: Bird Kowalski on 01-24-2024 Sodium [Moles/Vol] 136 mmol/L 136-[address] [facility] Comment on above: Performed By: #### C BC, BMP #### [facility] [address] [place] [address] Sodium [Moles/Vol] Sodium [Moles/volume ] in Serum or Plasma 136-145 [facility] Urea nitrogen [Mass/volume] in Serum or PlasmaOrdered By: Bird Kowalski on 01-24-2024 Urea nitrogen [Mass/Vol] 20 mg/dL 10-31 [facility] Comment on above: Performed By: #### C BC, BMP #### [facility] [address] [place] [address] Urea nitrogen [Mass/Vol] Urea nitrogen [Mass/volume] in Serum or Plasma 10-31 [facility] WBC Auto (Bld) [#/Vol]Ordere d By: Bird Kowalski on 01-24-2024 WBC (Bld) [#/Vol] Leukocytes [#/volume ] in Blood by Automated count High 4.1-10.5 [facility] Jose 12-31-2023 L Specimen: [id number] Received: 12/31/23 Status: [facility] Num: [id number] Spec Type: Surgical Subm Dr: Mehrdad Mcmanus MD Tissues: A Colon Biopsy (TRANSVERSE POLYP) B Colon Biopsy (APPENDICEAL ORIFACE BX) C Colon Biopsy (TRANSVERSE POLYP) Procedures: HE/6, Gross/Micro L4/3 Age/ Patient Sex Location Account Attending Physician Esme Steven 63/M [id number] Mehrdad Mcmanus MD SPEC NUM: [id number] RECD: 12/31/23 STATUS: ESTEFANIA MINA NUM: [id number] DEUCE: 12/31/[address]: Mehrdad Mcmanus MD ENTERED: 12/31/[address] [facility] [address]: SPEC TYPE: Surgical DEPT: S ENTERED BY: [id number] RECV BY: [id number] ORDERED: HE/6, Gross/Micro L4/3 ORDERED: HE/6, Gross/Micro L4/3 Pathological Diagnosis A. Transverse colon polyp: Tubular adenoma. B. Appendiceal orifice biopsy: Colonic mucosa with edema hemorrhage and vascular congestion within lamina propria. C. Transverse colon polyp: Hyperplastic polyp. Clinical Information Screen Gross Description Part A is received in formalin with the patient's name and transverse polyp and consists of a calero soft tissue fragment measuring 0.3 cm in greatest dimension. The specimen is entirely submitted in cassette A1. Part B is received in formalin with the patient's name and appendiceal orifice biopsy and consists of 2 calero portions of soft tissue measuring 0.2 and 0.6 cm in greatest dimension. The specimen is entirely submitted in cassette B1. Part C received in formalin with the patient's name and transverse polyp and consists of a Specimen: [id number] Received: 12/31/23 Status: ALYSONYasmine Mina Num: [id number] Spec Type: Surgical Subm Dr: Mehrdad Mcmanus MD Tissues: A Colon Biopsy (TRANSVERSE POLYP) B Colon Biopsy (APPENDICEAL ORIFACE BX) C Colon Biopsy (TRANSVERSE POLYP) Procedures: HE/6, Gross/Micro L4/3 Patient: Esme Steven [id number] (Continued) Specimen: [id number] Received: 12/31/23 (Continued) Gross Description (Continued) Signed (signature on file) Michele Crenshaw MD 01/03/24 0948 Specimen: [id number] Received: 12/31/23 Status: ESTEFANAI Mina Num: [id number] Spec Type: Surgical Subm Dr: Mehrdad Mcmanus MD Tissues: A Colon Biopsy (TRANSVERSE POLYP) B Colon Biopsy (APPENDICEAL ORIFACE BX) C Colon Biopsy (TRANSVERSE POLYP) Procedures: HE/6, Gross/Micro L4/3 Patient: Esme Steven [id number] (Continued) Specimen: [id number] Received: 12/31/23 (Continued) Gross Description (Continued) calero polypoid shaped soft tissue fragment measuring 0.5 cm in greatest dimension. The specimen is entirely submitted cassette C1. CPT Codes 88 305 x 3 Specimen: [id number] Received: 12/31/23 Status: ESTEFANIA Mina Num: [id number] Spec Type: Surgical Subm Dr: Mehrdad Mcmanus MD Tissues: A Colon Biopsy (TRANSVERSE POLYP) B Colon Biopsy (APPENDICEAL ORIFACE BX) C Colon Biopsy (TRANSVERSE POLYP) Procedures: HE/6, Gross/Micro L4/3 Patient: Esme Steven [id number] (Continued) Signed (signature on file) Michele Crenshaw MD 01/03/24 0948 Normal [facility] CNCOon 12-18-2023 CNCO Letter Text Normal [facility] Basophils Auto (Bld) [#/Vol] on 11-21-2023 Basophils (Bld) [#/Vol] 0.1 10 3/uL 0.0-0.1 [facility] Basophils/100 WBC Auto (Bld) on 11-21-2023 Basophils/100 WBC (Bld) 0.7 % 0.2-2.0 [facility] Cholesterol in LDL Calc [Mas s/Vol]on 11-21-2023 Cholesterol in LDL [Mass/Vol] 73.0 mg/dL [facility] Comment on above: <100 mg/dl [id number] 0-129 mg/dl NEAR OR ABOVE [id number] mg/dl BORDERLINE [id number] mg/dl HIGH>190 mg/dl VERY HIGH Cholesterol in VLDL Calc [Ma ss/Vol]on 11-21-2023 Cholesterol in VLDL [Mass/Vol] 15.0 mg/dL [facility] Eosinophils/100 WBC Auto (Bl d)on 11-21-2023 Eosinophils/100 WBC (Bld) 1.1 % 0.9-7.0 [facility] Erythrocyte distribution wid th Auto (RBC) [Ratio]on 11-21-2023 Erythrocyte distribution width (RBC) [Ratio] 13.2 % 11.0-15.0 [facility] Estimated glomerular filtrat ion rate (GFR) non- Americanon 11-21-2023 GFR/1.73 sq M.predicted among non-blacks MDRD (S/P/Bld) [Vol rate/Area] mL/min/{1.73_m2} >=60 [facility] Globulin Calc (S) [Mass/Vol] on 11-21-2023 Globulin (S) [Mass/Vol] 3.2 g/dL [facility] Hematocrit Auto (Bld) [Volum e fraction]on 11-21-2023 Hematocrit (Bld) [Volume fraction] 43.6 % 42.0-54.0 [facility] Hemoglobin [Mass/volume] in Bloodon 11-21-2023 Hemoglobin (Bld) [Mass/Vol] 15.2 g/dL 14.0-18.0 [facility] Laboratory - Chemistry and C hemistry - challengeon 11-21-2023 Albumin [Mass/Vol] 3.4 g/dL 3.4-5.[address] [facility] ALP [Catalytic activity/Vol] 53 U/L 46-116 [facility] ALT [Catalytic activity/Vol] 48 U/L 16-63 [facility] AST [Catalytic activity/Vol] 19 U/L 15-37 [facility] Bilirubin [Mass/Vol] 0.7 mg/dL 0.2-1.0 [facility] Calcium [Mass/Vol] 8.6 mg/dL 8.5-10.[address] [facility] Chloride [Moles/Vol] 103 mmol/L 98-107 [facility] Cholesterol [Mass/Vol] 141 mg/dL <=200 [facility] Cholesterol in HDL [Mass/Vol] 53 mg/dL 40-60 [facility] Comment on above: > or =60 mg/dl - LOW CARDIOVASCULAR RISK<40 mg/dl - HIGH CARDIOVASCULAR RISK CO2 [Moles/Vol] 29.6 mmol/L 21.0-32.0 [facility] Creatinine [Mass/Vol] 0.87 mg/dL 0.70-1.30 [facility] GFR/1.73 sq M.predicted MDRD (S/P/Bld) [Vol rate/Area] mL/min/{1.73_m2} >=60 [facility] Glucose [Mass/Vol] 113 mg/dL High 74-[address] [facility] Potassium [Moles/Vol] 4.3 mmol/L 3.5-5.1 [facility] Protein [Mass/Vol] 6.6 g/dL 6.4-8.[address] [facility] Sodium [Moles/Vol] 138 mmol/L 136-[address] [facility] Triglyceride [Mass/Vol] 75 mg/dL <=150 [facility] TSH Qn 1.694 m[IU]/L 0.358-3.74 0 [facility] Urea nitrogen [Mass/Vol] 19.0 mg/dL High 7.0-18.0 [facility] Urea nitrogen/Creatinine [Mass ratio] 21.8 mg/mg [facility] Laboratory - Hematology and Cell countson 11-21-2023 Immature granulocytes/100 WBC (Bld) 1.3 % High 0.0-0.5 [facility] Leukocytes [#/volume] correc collins for nucleated erythrocytes in Blood by Automated counon 11-21-2023 WBC corrected for nucl RBC Auto (Bld) [#/Vol] 11.4 10 3/uL High 4.0-11.0 [facility] Lymphocytes Auto (Bld) [#/Vo l]on 11-21-2023 Lymphocytes (Bld) [#/Vol] 2.8 10 3/uL 1.2-3.8 [facility] Lymphocytes/100 WBC Auto (Bl d)on 11-21-2023 Lymphocytes/100 WBC (Bld) 24.3 % 20.5-60.0 [facility] MCH Auto (RBC) [Entitic mass ]on 11-21-2023 MCH (RBC) [Entitic mass] 36.5 pg High 25.9-34.0 [facility] MCHC Auto (RBC) [Mass/Vol]on 11-21-2023 MCHC (RBC) [Mass/Vol] 34.9 g/dL 29.9-35.2 [facility] MCV Auto (RBC) [Entitic vol] on 11-21-2023 MCV (RBC) [Entitic vol] 104.6 fL High 80.0-94.0 [facility] Monocytes Auto (Bld) [#/Vol] on 11-21-2023 Monocytes (Bld) [#/Vol] 1.0 10 3/uL High 0.3-0.8 [facility] Monocytes/100 WBC Auto (Bld) on 11-21-2023 Monocytes/100 WBC (Bld) 8.5 % 1.7-12.0 [facility] Neutrophils Auto (Bld) [#/Vo l]on 11-21-2023 Neutrophils (Bld) [#/Vol] 7.3 10 3/uL High 1.4-6.5 [facility] Neutrophils/100 WBC Auto (Bl d)on 11-21-2023 Neutrophils/100 WBC (Bld) 64.1 % 43.0-75.0 [facility] No Panel Informationon 11-20 Eosinophils # (Auto) 0.1 10 3/uL 0.0-0.7 [facility] Immature Granulocyte # (Auto) 0.15 10 3/uL High 0.00-0.03 [facility] Prostate Specific Antigen Screen 0.48 ng/mL <=4.00 [facility] Platelet mean volume Auto (B ld) [Entitic vol]on 11-21-2023 Platelet mean volume (Bld) [Entitic vol] 10.6 fL 9.5-13.5 [facility] Platelets Auto (Bld) [#/Vol] on 11-21-2023 Platelets (Bld) [#/Vol] 180 10 3/uL 150-450 [facility] RBC Auto (Bld) [#/Vol]on RBC (Bld) [#/Vol] 4.17 10 6/uL Low 4.70-6.10 [facility] Serum or plasma albumin/glob ulin mass ratioon 11-21-2023 Albumin/Globulin [Mass ratio] 1.1 {ratio} [facility] Serum or plasma anion gap de terminationon 11-21-2023 Anion gap [Moles/Vol] 9.7 mmol/L [facility] Serum or plasma total choles terol/high density lipoprotein (HDL) cholesterol mass orin 11-21-2023 Cholesterol.total/Chol esterol in HDL [Mass ratio] 2.7 {ratio} [facility] Comment on above: 3.3 - 4.4 LOW RISK4. 4 - 7.1 AVERAGE RISK7.1 - 11.0 MODERATE RISK>11.0 HIGH RISK CNPLesly 09-09-2023 MICHAELN Telephone (ADIELULN) ----- ESME STEVEN ([id number]) 1960 M Date Time Provider Department 09/09/23 HELADIO PINEDA During your visit today, we recorded the following information about you: Heladio Pineda MD 09/09/2023 11:12 AM Signed Please Call patient if MyChart note not read to review results/released to My Chart if tests completed at [facility]: Normal labs and no inflammation.. 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 CRP SerPl-Rigobertoon 09-05-2023 CRP [Mass/Vol] 0.8 mg/dL Normal <0.[address] [facility] Comment on above: Order Comment: Speci men Type: BLOOD SPECIMENOrdering Facility: [facility] Address: [address] [place] [address] Performed By: #### 1 988-5 ####[facility] LABCLIA [id number] [place] [address] [place] ESR Westergren method (Bld) [Velocity]on 09-05-2023 ESR (Bld) [Velocity] 2 mm/h Normal 0-15 [facility] Comment on above: Order Comment: Speci men Type: BLOOD SPECIMENOrdering Facility: [facility] Address: [address] [place] [address] Performed By: #### 4 [id number] ####[facility] LABIA [id number] [address] [place] Laboratory - Hematology and Cell countson 09-05-2023 ESR (Bld) [Velocity] 2 mm/h 0-15 [facility] No Panel Informationon 09-04 C-Reactive Protein, Quantitative 0.8 mg/dL <0.9 [facility] Automated basophil %Ordered By: Elliott Talley on 09-01-2023 Basophils/100 WBC (Bld) 0.5 % Normal . [facility] Comment on above: Performed By: #### C UMU, BMP #### [facility] [address] [place] [address] Automated basophil countOrde red By: Elliott Talley on 09-01-2023 Basophils (Bld) [#/Vol] 0.0 10*3/uL Normal 0.0-0.2 [facility] Comment on above: Result Comment: PERF ORMED BY: [address] [place] [address] PATHOLOGIST MUSEUM EXHIBIT DESIGNER ALAYNA CAPONE M.D. Performed By: #### C BC, BMP #### [facility] [address] [place] [address] Automated blood monocyte cou ntOrdered By: Elliott Talley on 09-01-2023 Monocytes (Bld) [#/Vol] 0.5 10*3/uL Normal 0.0-0.8 [facility] Comment on above: Performed By: #### C BC, BMP #### [address] Automated eosinophil %Ordere d By: Elliott Mayank on 09-01-2023 Eosinophils/100 WBC (Bld) 0.8 % Normal . [facility] Comment on above: Performed By: #### C BC, BMP #### [address] Automated eosinophil countOr dered By: Elliott Mattor on 09-01-2023 Eosinophils (Bld) [#/Vol] 0.1 10*3/uL Normal 0.0-0.45 [facility] Comment on above: Performed By: #### C BC, BMP #### [address] Automated monocyte %Ordered By: Elliott Mayank on 09-01-2023 Monocytes/100 WBC (Bld) 6.4 % Normal . [facility] Comment on above: Performed By: #### C BC, BMP #### [address] Automated neutrophil %Ordere d By: Elliott Mayank on 09-01-2023 Neutrophils/100 WBC (Bld) 78.8 % Normal . [facility] Comment on above: Performed By: #### C BC, BMP #### [address] Complete Blood Count Auto Di ffon 09-01-2023 Mean Corpuscular HGB Conc 33.7 g/dL Normal 32.5-35.6 [facility] Comment on above: Performed By: #### C BC, BMP #### [address] NRBC% 0.0 /100{WBC} Normal 0-0.5 [facility] Comment on above: Performed By: #### C BC, BMP #### [address] Erythrocyte distribution wid th [Ratio] by Automated countOrdered By: Elliott Gutierrezor on 09-01-2023 Erythrocyte distribution width (RBC) [Ratio] 15.2 % High 12.0-14.8 [facility] Comment on above: Performed By: #### C UMU, BMP #### [facility] [address] [place] [address] Erythrocytes [#/volume] in B lood by Automated countOrdered By: Elliott Gutierrezor on 09-01-2023 RBC (Bld) [#/Vol] 4.66 10*6/uL Normal 3.90-5.60 [facility] Comment on above: Performed By: #### C UMU, BMP #### [address] Hematocrit [Volume Fraction] of Blood by Automated countOrdered By: Elliott Talley on 09-01-2023 Hematocrit (Bld) [Volume fraction] 47.9 % Normal 38.8-50.0 [facility] Comment on above: Performed By: #### C UMU, BMP #### [facility] [address] [place] [address] Hemoglobin [Mass/volume] in BloodOrdered By: Elliott Talley on 09-01-2023 Hemoglobin (Bld) [Mass/Vol] 16.1 g/dL Normal 13.0-17.0 [facility] Comment on above: Performed By: #### C UMU, BMP #### [address] Leukocytes [#/volume] correc collins for nucleated erythrocytes in Blood by Automated counOrdered By: Elliott Mattor on 09-01-2023 WBC corrected for nucl RBC Auto (Bld) [#/Vol] 7.6 10*3/uL 4.1-10.5 [facility] Leukocytes [#/volume] in Blo od by Automated countOrdered By: Elliott Diannekpor on 09-01-2023 WBC (Bld) [#/Vol] 7.6 10*3/uL Normal 4.1-10.[address] [facility] Comment on above: Performed By: #### C BC, BMP #### [address] Lymphocytes [#/volume] in Bl ood by Automated countOrdered By: Elliott Talley on 09-01-2023 Lymphocytes (Bld) [#/Vol] 1.0 10*3/uL Normal 1.00-4.8 [facility] Comment on above: Performed By: #### C BC, BMP #### [address] Lymphocytes/100 leukocytes i n Blood by Automated countOrdered By: Elliott Talley on 09-01-2023 Lymphocytes/100 WBC (Bld) 13.5 % Normal . [facility] Comment on above: Performed By: #### C UMU, BMP #### [address] MCH [Entitic mass] by Automa collins countOrdered By: Elliott Talley on 09-01-2023 MCH (RBC) [Entitic mass] 34.6 pg Normal 27.5-35.2 [facility] Comment on above: Performed By: #### C UMU, BMP #### [address] MCHC Auto (RBC) [Mass/Vol]Or dered By: Elliott Talley on 09-01-2023 MCHC (RBC) [Mass/Vol] 33.7 g/dL 32.5-35.6 [facility] MCV [Entitic volume] by Auto mated countOrdered By: Elliott Talley on 09-01-2023 MCV (RBC) [Entitic vol] 102.8 fL High 83.5-101 [facility] Comment on above: Performed By: #### C BC, BMP #### [place] [address] [place] Neutrophils [#/volume] in Bl ood by Automated countOrdered By: Elliott Talley on 09-01-2023 Neutrophils (Bld) [#/Vol] 6.0 10*3/uL Normal 1.8-7.7 [facility] Comment on above: Performed By: #### C UMU, RAIMUNDO #### [address] Nucleated erythrocytes [Pres ence] in Blood by Automated countOrdered By: Elliott Talley on 09-01-2023 Nucleated RBC Auto Ql (Bld) 0.0 /100{WBC} 0-0.5 [facility] Platelet mean volume [Entiti c volume] in Blood by Automated countOrdered By: Elliott Talley on 09-01-2023 Platelet mean volume (Bld) [Entitic vol] 9.1 fL Normal 6.6-10.1 [facility] Comment on above: Performed By: #### C UMU, BMP #### [address] Platelets [#/volume] in Bloo d by Automated countOrdered By: Elliott Talley on 09-01-2023 Platelets (Bld) [#/Vol] 119 10*3/uL Low 150-450 [facility] Comment on above: Performed By: #### C UMU, BMP #### [address] Activated partial thrombopla stin time (aPTT) in platelet poor plasma by coagulation aOrdered By: Elliott Talley on 08-31-2023 aPTT Coag (PPP) [Time] 27.6 s 25.1-36.5 [facility] Comment on above: A hematocrit value g reater than 55% may lead to inaccurate results in coagulation testing. Patients having hematocrit values >55% require a special collection tube for coagulation studies. Please contact the laboratory at [phone] for redraw instructions. Alanine aminotransferase [En zymatic activity/volume] in Serum or PlasmaOrdered By: Elliott Talley on 08-31-2023 ALT [Catalytic activity/Vol] 33 U/L Normal 7-52 [facility] Comment on above: Performed By: #### C UMU, BMP #### [address] [place] [address] [place] Albumin [Mass/volume] in Ser um or Plasma by Bromocresol green (BCG) dye binding methoOrdered By: Elliott Talley on 08-31-2023 Albumin BCG dye [Mass/Vol] 3.5 g/dL 3.5-5.7 [facility] Alkaline phosphatase [Enzyma tic activity/volume] in Serum or PlasmaOrdered By: Elliott Talley on 08-31-2023 ALP [Catalytic activity/Vol] 39 U/L Normal 34-104 [facility] Comment on above: Performed By: #### C BC, BMP #### [facility] [address] [place] [address] [place] Aspartate aminotransferase [ Enzymatic activity/volume] in Serum or PlasmaOrdered By: Elliott Talley on 08-31-2023 AST [Catalytic activity/Vol] 19 U/L Normal 13-39 [facility] Comment on above: Performed By: #### C BC, BMP #### [facility] [address] [place] [id number] [facility] Bilirubin.total [Mass/volume ] in Serum or PlasmaOrdered By: Elliott Talley on 08-31-2023 Bilirubin [Mass/Vol] 1.3 mg/dL High 0.3-1.0 [facility] Comment on above: Samples from patient s [...] for measuring Total Bilirubin. Performed By: #### C BC, BMP #### [facility] [address] [place] [id number] [place] Calcium [Mass/volume] in Ser um or PlasmaOrdered By: Elliott Talley on 08-31-2023 Calcium [Mass/Vol] 8.6 mg/dL Normal 8.6-10.[address] [facility] Comment on above: Performed By: #### C BC, BMP #### [address] Carbon dioxide, total [Moles /volume] in Serum or PlasmaOrdered By: Elliott Talley on 08-31-2023 CO2 [Moles/Vol] 29.2 mmol/L Normal 21.0-31.0 [facility] Comment on above: Performed By: #### C BC, BMP #### [address] Chloride [Moles/volume] in S ursula or PlasmaOrdered By: Elliott Talley on 08-31-2023 Chloride [Moles/Vol] 104 mmol/L Normal 98-107 [facility] Comment on above: Performed By: #### C BC, BMP #### [address] Complete Blood Count Auto Di ffon 08-31-2023 Basophils (Bld) [#/Vol] 0.1 10*3/uL Normal 0.0-0.2 [facility] Comment on above: Result Comment: PERF ORMED BY: [place] [address] PATHOLOGIST MUSEUM EXHIBIT DESIGNER ALAYNA CAPONE M.D. Performed By: #### H S TROP #### [place] [address] [place] Basophils/100 WBC (Bld) 0.5 % Normal . [facility] Comment on above: Performed By: #### H S TROP #### [place] [address] [place] Eosinophils (Bld) [#/Vol] 0.0 10*3/uL Normal 0.0-0.45 [facility] Comment on above: Performed By: #### H S TROP #### [place] [address] [place] Eosinophils/100 WBC (Bld) 0.4 % Normal . [facility] Comment on above: Performed By: #### H S TROP #### [address] Erythrocyte distribution width (RBC) [Ratio] 15.0 % High 12.0-14.8 [facility] Comment on above: Performed By: #### H S TROP #### [address] Hematocrit (Bld) [Volume fraction] 44.2 % Normal 38.8-50.0 [facility] Comment on above: Performed By: #### H S TROP #### [address] Hemoglobin (Bld) [Mass/Vol] 14.8 g/dL Normal 13.0-17.0 [facility] Comment on above: Performed By: #### H S TROP #### [address] Lymphocytes (Bld) [#/Vol] 1.0 10*3/uL Normal 1.00-4.8 [facility] Comment on above: Performed By: #### H S TROP #### [place] [address] [place] Lymphocytes/100 WBC (Bld) 7.9 % Normal . [facility] Comment on above: Performed By: #### H S TROP #### [address] MCH (RBC) [Entitic mass] 34.6 pg Normal 27.5-35.2 [facility] Comment on above: Performed By: #### H S TROP #### [address] MCV (RBC) [Entitic vol] 103.5 fL High 83.5-101 [facility] Comment on above: Performed By: #### H S TROP #### [address] Mean Corpuscular HGB Conc 33.4 g/dL Normal 32.5-35.6 [facility] Comment on above: Performed By: #### H S TROP #### [place] [address] [place] Monocytes (Bld) [#/Vol] 0.5 10*3/uL Normal 0.0-0.8 [facility] Comment on above: Performed By: #### H S TROP #### [place] [address] [place] Monocytes/100 WBC (Bld) 4.5 % Normal . [facility] Comment on above: Performed By: #### H S TROP #### [address] Neutrophils (Bld) [#/Vol] 10.5 10*3/uL High 1.8-7.7 [facility] Comment on above: Performed By: #### H S TROP #### [address] Neutrophils/100 WBC (Bld) 86.7 % Normal . [facility] Comment on above: Performed By: #### H S TROP #### [address] NRBC% 0.1 /100{WBC} Normal 0-0.5 [facility] Comment on above: Performed By: #### H S TROP #### [address] Platelet mean volume (Bld) [Entitic vol] 8.9 fL Normal 6.6-10.1 [facility] Comment on above: Performed By: #### H S TROP #### [place] [address] [place] Platelets (Bld) [#/Vol] 118 10*3/uL Significant change down 150-450 [facility] Comment on above: Performed By: #### H S TROP #### [place] [address] [place] RBC (Bld) [#/Vol] 4.28 10*6/uL Normal 3.90-5.60 [facility] Comment on above: Performed By: #### H S TROP #### [address] WBC (Bld) [#/Vol] 12.1 10*3/uL High 4.1-10.5 [facility] Comment on above: Performed By: #### H S TROP #### [address] Comprehensive Metabolic Pane jose 08-31-2023 Albumin [Mass/Vol] 3.5 g/dL Normal 3.5-5.7 [facility] Comment on above: Performed By: #### C BC, BMP #### [address] Creatinine Clr Calc Pharmacy 90.65 Normal [facility] Comment on above: Performed By: #### C BC, BMP #### [address] GFR/1.73 sq M.predicted MDRD (S/P/Bld) [Vol rate/Area] mL/min/{1.73_m2} Normal [facility] Comment on above: Performed By: #### C BC, BMP #### [address] Cortisolon 08-31-2023 Cortisol 9.4 ug/dL Normal [facility] [facility] Comment on above: Result Comment: Refe rence range: AM 6 - 24 ug/dl PM <10 ug/dl [facility] Laboratory design intern and method: BERTIN UNICEL DXI, POLYCLONAL ANTIBODY CORTISOL ASSAY. PERFORMED BY: [place] [address] PATHOLOGIST MUSEUM EXHIBIT DESIGNER ALAYNA CAPONE M.D. Performed By: #### H S TROP #### [address] Creatinine [Mass/volume] in Serum or PlasmaOrdered By: Elliott Talley on 08-31-2023 Creatinine [Mass/Vol] 1.05 mg/dL Normal 0.70-1.30 [facility] Comment on above: Performed By: #### C BC, BMP #### [address] Glucose [Mass/volume] in Ser um or PlasmaOrdered By: Elliott Talley on 08-31-2023 Glucose [Mass/Vol] 101 mg/dL High 70-[address] [facility] Comment on above: ADA recommended refe rence rangeRandom Glucose Reference Range is dependent on time and content of last meal. Glucose of more than 200 mg/dL in a nonstressed, ambulatory subject supports the diagnosis of Diabetes Mellitus. Result Comment: [place] om Glucose Reference Range is dependent on time and content of last meal. Glucose of more than 200 mg/dL in a nonstressed, ambulatory subject supports the diagnosis of Diabetes Mellitus. ADA recommended reference range Performed By: #### C UMU, BMP #### [facility] [address] INR in Platelet poor plasma by Coagulation assayOrdered By: Elliott Talley on 08-31-2023 INR Coag (PPP) [Relative time] 1.1 {INR} Normal [facility] Comment on above: INR Therapeutic Rang e [...] valves: 3 - 4.5 Performed By: #### C BC, BMP #### [facility] [address] [place] [id number] [place] Magnesium [Mass/volume] in S ursula or PlasmaOrdered By: Elliott Talley on 08-31-2023 Magnesium [Mass/Vol] 2.0 mg/dL Normal 1.9-2.7 [facility] Comment on above: Performed By: #### H S TROP #### [address] No Panel InformationOrdered By: Elliott Talley on 08-31-2023 Estimated GFR (CKD-EPI) > 60.0 mL/Min [facility] Creatinine Clearance (Chem 90.65 [facility] Partial Thromboplastin Timeo n 08-31-2023 aPTT Coag (Bld) [Time] 27.6 s Normal 25.1-36.5 Th e [facility] Comment on above: Result Comment: A matocrit value greater than 55% may lead to inaccurate results in coagulation testing. Patients having hematocrit values >55% require a special collection tube for coagulation studies. Please contact the laboratory at [phone] for redraw instructions. PERFORMED BY: [place] [address] PATHOLOGIST MUSEUM EXHIBIT DESIGNER ALAYNA CAPONE M.D. Performed By: #### C BC, BMP #### [address] Potassium [Moles/volume] in Serum or PlasmaOrdered By: Elliott Talley on 08-31-2023 Potassium [Moles/Vol] 4.4 mmol/L Normal 3.5-5.1 [facility] Comment on above: Performed By: #### C BC, BMP #### [address] Protein [Mass/volume] in Ser um or PlasmaOrdered By: Elliott Talley on 08-31-2023 Protein [Mass/Vol] 5.6 g/dL Low 6.4-8.[address] [facility] Comment on above: Performed By: #### C BC, BMP #### [address] Prothrombin time (PT)Ordered By: Elliott Talley on 08-31-2023 PT Coag (PPP) [Time] 13.1 s High 9.0-12.9 [facility] Comment on above: A hematocrit value g reater than 55% may lead to inaccurate results in coagulation testing. Patients having hematocrit values >55% require a special collection tube for coagulation studies. Please contact the laboratory at [phone] for redraw instructions. Result Comment: A he matocrit value greater than 55% may lead to inaccurate results in coagulation testing. Patients having hematocrit values >55% require a special collection tube for coagulation studies. Please contact the laboratory at [phone] for redraw instructions. Performed By: #### C UMU, BMP #### [address] Random cortisol measurementO rdered By: Elliott Talley on 08-31-2023 Cortisol [Mass/Vol] 9.4 ug/dL [facility] Comment on above: [facility] Laboratory design intern and method:[employer]EL DXI, POLYCLONAL ANTIBODY CORTISOL ASSAY.Reference range: AM 6 - 24 ug/dl PM <10 ug/dl Serum globulin measurement b y calculation (mass/volume)Ordered By: Elliott Talley on 08-31-2023 Globulin (S) [Mass/Vol] 2.1 g/dL [facility] Comment on above: Performed By: #### C UMU, BMP #### [address] Serum or plasma albumin/glob ulin mass ratioOrdered By: Elliott Talley on 08-31-2023 Albumin/Globulin [Mass ratio] 1.7 {ratio} [facility] Comment on above: Performed By: #### C UMU, BMP #### [address] Serum or plasma anion gap de terminationOrdered By: Elliott Talley on 08-31-2023 Anion gap [Moles/Vol] 9.2 mmol/L Normal 6.0-15.0 [facility] Comment on above: Performed By: #### C UMU, BMP #### [address] Sodium [Moles/volume] in Ser um or PlasmaOrdered By: Elliott Talley on 08-31-2023 Sodium [Moles/Vol] 138 mmol/L Normal 136-[address] [facility] Comment on above: Performed By: #### C UMU BMP #### [facility] [address] Urea nitrogen [Mass/volume] in Serum or PlasmaOrdered By: Elliott Talley on 08-31-2023 Urea nitrogen [Mass/Vol] 15 mg/dL Normal 7-25 [facility] Comment on above: Performed By: #### C UMU, BMP #### [facility] [address] Activated partial thrombopla stin time (aPTT) in platelet poor plasma by coagulation aOrdered By: Hermes Velez on 08-30-2023 aPTT Coag (PPP) [Time] 25.5 s 25.1-36.5 [facility] Comment on above: A hematocrit value g reater than 55% may lead to inaccurate results in coagulation testing. Patients having hematocrit values >55% require a special collection tube for coagulation studies. Please contact the laboratory at [phone] for redraw instructions. Alanine aminotransferase [En zymatic activity/volume] in Serum or PlasmaOrdered By: Hermes Velez on 08-30-2023 ALT [Catalytic activity/Vol] 44 U/L Normal 7-52 [facility] Comment on above: Performed By: #### H EPATIC, LACTIC, CMP, LIPASE, CUBLD, BMP #### [facility] [address] [place] [id number] [place] Albumin [Mass/volume] in Ser um or Plasma by Bromocresol green (BCG) dye binding methoOrdered By: Hermes Velez on 08-30-2023 Albumin BCG dye [Mass/Vol] 4.2 g/dL 3.5-5.7 [facility] Alkaline phosphatase [Enzyma tic activity/volume] in Serum or PlasmaOrdered By: Hermes Velez on 08-30-2023 ALP [Catalytic activity/Vol] 46 U/L Normal 34-104 [facility] Comment on above: Performed By: #### H EPATIC, LACTIC, CMP, LIPASE, CUBLD, BMP #### [facility] [address] [place] [address] Aspartate aminotransferase [ Enzymatic activity/volume] in Serum or PlasmaOrdered By: Hermes Velez on 08-30-2023 AST [Catalytic activity/Vol] 27 U/L Normal 13-39 [facility] Comment on above: Performed By: #### H EPATIC, LACTIC, CMP, LIPASE, CUBLD, BMP #### [facility] [address] [place] [address] Automated basophil %Ordered By: Hermes Velez on 08-30-2023 Basophils/100 WBC (Bld) 0.8 % Normal . [facility] Comment on above: Performed By: #### H EPATIC, LACTIC, CMP, LIPASE, CUBLD, BMP #### [address] Automated basophil countOrde red By: Hermes Velez on 08-30-2023 Basophils (Bld) [#/Vol] 0.1 10*3/uL Normal 0.0-0.2 [facility] Comment on above: Result Comment: PERF ORMED BY: [place] [address] PATHOLOGIST MUSEUM EXHIBIT DESIGNER ALAYNA CAPONE M.D. Performed By: #### H EPATIC, LACTIC, CMP, LIPASE, CUBLD, BMP #### [address] Automated blood monocyte cou ntOrdered By: Hermes Velez on 08-30-2023 Monocytes (Bld) [#/Vol] 0.3 10*3/uL Normal 0.0-0.8 [facility] Comment on above: Performed By: #### H EPATIC, LACTIC, CMP, LIPASE, CUBLD, BMP #### [address] Automated eosinophil %Ordere d By: Hermes Velez on 08-30-2023 Eosinophils/100 WBC (Bld) 0.1 % Normal . [facility] Comment on above: Performed By: #### H EPATIC, LACTIC, CMP, LIPASE, CUBLD, BMP #### [address] Automated eosinophil countOr dered By: Hermes Velez on 08-30-2023 Eosinophils (Bld) [#/Vol] 0.0 10*3/uL Normal 0.0-0.45 [facility] Comment on above: Performed By: #### H EPATIC, LACTIC, CMP, LIPASE, CUBLD, BMP #### [facility] [address] Automated monocyte %Ordered By: Hermes Velez on 08-30-2023 Monocytes/100 WBC (Bld) 2.3 % Normal . [facility] Comment on above: Performed By: #### H EPATIC, LACTIC, CMP, LIPASE, CUBLD, BMP #### [facility] [address] [place] [address] Automated neutrophil %Ordere d By: Hermes Velez on 08-30-2023 Neutrophils/100 WBC (Bld) 92.4 % Normal . [facility] Comment on above: Performed By: #### H EPATIC, LACTIC, CMP, LIPASE, CUBLD, BMP #### [address] BNP ser/plasOrdered By: Mookie Velez on 08-30-2023 Natriuretic peptide B (Bld) [Mass/Vol] 401.0 pg/mL High 5-100 [facility] Comment on above: Result Comment: PERF ORMED BY: [place] [address] PATHOLOGIST MUSEUM EXHIBIT DESIGNER ALAYNA CAPONE M.D. Performed By: #### H EPATIC, LACTIC, CMP, LIPASE, CUBLD, BMP #### [facility] [address] [place] [address] Bacterial blood cultureOrder ed By: Hermes Velez on 08-30-2023 Bacteria identified Cx Nom (Bld) NO GROWTH 5 DAYS [facility] Basic Metabolic Panelon 08-08 Creatinine Clr Calc Pharmacy 82.75 Normal [facility] Comment on above: Result Comment: PERF ORMED BY: [place] [address] PATHOLOGIST MUSEUM EXHIBIT DESIGNER ALAYNA CAPONE M.D. Performed By: #### H EPATIC, LACTIC, CMP, LIPASE, CUBLD, BMP #### [address] GFR/1.73 sq M.predicted MDRD (S/P/Bld) [Vol rate/Area] mL/min/{1.73_m2} Normal [facility] Comment on above: Performed By: #### H EPATIC, LACTIC, CMP, LIPASE, CUBLD, BMP #### [place] [id number] [facility] Bilirubin Test strip Ql (U)O rdered By: Hermes Velez on 08-30-2023 Bilirubin Ql (U) Negative Negative [facility] Bilirubin.direct [Mass/volum e] in Serum or PlasmaOrdered By: Hermes Velez on 08-30-2023 Bilirubin.direct [Mass/Vol] 0.20 mg/dL High 0.03-0.18 [facility] Bilirubin.total [Mass/volume ] in Serum or PlasmaOrdered By: Hermes Velez on 08-30-2023 Bilirubin [Mass/Vol] 0.9 mg/dL Normal 0.3-1.0 [facility] Comment on above: Performed By: #### H EPATIC, LACTIC, CMP, LIPASE, CUBLD, BMP #### [address] BioFire Not Detectedon 08-29 BioFire Not Detected Not detected Normal Not Detecte [facility] Comment on above: Result Comment: This is a duplicate RP2.1 COVID (PCR) result to be used for statistical tracking purpose only. PERFORMED BY: [place] [address] PATHOLOGIST MUSEUM EXHIBIT DESIGNER ALAYNA ACPONE M.D. Performed By: #### U A #### [address] Blood Cultureon 08-30-2023 Bacteria identified Cx Nom (Bld) NO GROWTH 5 DAYS PERFORMED BY: [place] [address] PATHOLOGIST MUSEUM EXHIBIT DESIGNER ALAYNA CAPONE M.D. Normal [facility] Comment on above: Performed By: #### C BC, BMP #### [facility] [address] [place] [id number] [facility] Bacteria identified Cx Nom (Bld) BioFire BCID [...] culture Not detected Group A (Streptococcus pyogenes) [id number] Not detected Group B Strep (Streptococcus agalactiae) [...] indic (more content not included)... Normal [facility] Comment on above: Performed By: #### C BC, BMP #### [facility] [address] COVID CepheidOrdered By: [facility] on 08-30-2023 SARS-CoV-2 (COVID-19) Ab IA Ql Negative Negative [facility] Comment on above: This is a duplicate Cepheid Xpert Xpress CoV-2/Flu/RSV Plus RNA by RT-PCR result to be used for statistical tracking purpose only. SARS-CoV-2 (COVID-19) RNA ROSIE+probe Ql (Unsp spec) [facility] COVID-19 / Flu A/B / RSV PCR [...] or Cepheid Disclaimer revoked sooner. PERFORMED BY: [place] [address] PATHOLOGIST MUSEUM EXHIBIT DESIGNER ALAYNA CAPONE M.D. Normal [facility] Comment on above: Performed By: #### H EPATIC, LACTIC, CMP, LIPASE, CUBLD, BMP #### [address] COVID-19 Detected/Not Detect edOrdered By: Elliott Talley on 08-30-2023 SARS-CoV-2 (COVID-19) RNA ROSIE+non-probe Ql (Nph) Not detected Not Detecte [facility] Comment on above: This is a duplicate RP2.1 COVID (PCR) result to be used for statistical tracking purpose only. CT abdomen pelvis w conon CT abdomen pelvis w con [facility] [address] [place] [address] CT Scan Report Signed Patient: Esme Steven MR#: [id number] : 1960 Acct:[id number] Age/Sex: 62 / M ADM Date: 08/30/23 Loc: ER Room: Type: [facility] ER Attending Dr: Copies to: Erin [...] Gisell Camilo M.D.08/30/2023 8:19 PM Dictation Location: [place] [address] Transcribed By: [facility] 08/30/232018 Dictated By: Gisell Camilo MD 08/30/232009 Signed By: 08/30/232018 [place] [facility] CT angio headon 08-30-2023 CT angio head [facility] [address] [place] [address] CT Scan Report Signed Patient: Esme Steven MR#: [id number] : 1960 Acct:[id number] Age/Sex: 62 / M ADM Date: 08/30/23 Loc: ER Room: Type: [facility] ER Attending Dr: Copies to: Erni Suresh MD Ordering Provider: Erin Suresh MD Date of Service: 08/30/23 CT/CT angio head: acute headache, dizzy +6 hours ([id number]) CT/CT head/brain wo con: acute headache, dizzy ([id number]) CT/CT angio neck: thunderclap headache CLINICAL DATA: [...] volume rendered reconstructions of carotid arteries and [place] were reviewed. This CT exam [...] Gisell Camilo M.D.08/30/2023 8:09 PM Dictation Location: [place] [address] Transcribed By: [facility] 08/30/232008 Dictated By: Gisell Camilo MD 08/30/231958 Signed By: 08/30/232008 Normal [facility] Calcium [Mass/volume] in Ser um or PlasmaOrdered By: Hermes Velez on 08-30-2023 Calcium [Mass/Vol] 9.3 mg/dL Normal 8.6-10.[address] [facility] Comment on above: Performed By: #### H EPATIC, LACTIC, CMP, LIPASE, CUBLD, BMP #### [facility] [address] [place] [address] Carbon dioxide, total [Moles /volume] in Serum or PlasmaOrdered By: Hermes Velez on 08-30-2023 CO2 [Moles/Vol] 25.1 mmol/L Normal 21.0-31.0 [facility] Comment on above: Performed By: #### H EPATIC, LACTIC, CMP, LIPASE, CUBLD, BMP #### [facility] [address] Cepheid COVID PCR Negativeon 08-30-2023 SARS-CoV-2 (COVID-19) RNA ROSIE+probe Ql (Unsp spec) Negative Normal Negative [facility] Comment on above: Result Comment: This is a duplicate Cepheid Xpert Xpress CoV-2/Flu/RSV Plus RNA by RT-PCR result to be used for statistical tracking purpose only. PERFORMED BY: [address] [address] PATHOLOGIST MUSEUM EXHIBIT DESIGNER ALAYNA CAPONE M.D. Performed By: #### H EPATIC, LACTIC, CMP, LIPASE, CUBLD, BMP #### [address] Chloride [Moles/volume] in S ursula or PlasmaOrdered By: Hermse Velez on 08-30-2023 Chloride [Moles/Vol] 100 mmol/L Normal 98-107 [facility] Comment on above: Performed By: #### H EPATIC, LACTIC, CMP, LIPASE, CUBLD, BMP #### [address] Color of Urine by AutoOrdere d By: Hermes Velez on 08-30-2023 Color (U) Yellow Normal Yellow [facility] Comment on above: Order Comment: Name Collection Type:: Clean-Voided Midstream Performed By: #### U A #### [address] Complete Blood Count Auto Di ffon 08-30-2023 Mean Corpuscular HGB Conc 33.7 g/dL Normal 32.5-35.6 [facility] Comment on above: Performed By: #### H EPATIC, LACTIC, CMP, LIPASE, CUBLD, BMP #### [address] Monocytes/100 WBC (Bld) 21.88 % High 0.00-20.00 [facility] Comment on above: Result Comment: For adults in ED, MDW > 20.0 may be associated with a higher risk of sepsis during the first 12 hrs of hospital admission Performed By: #### H EPATIC, LACTIC, CMP, LIPASE, CUBLD, BMP #### [address] NRBC% 0.0 /100{WBC} Normal 0-0.5 [facility] Comment on above: Performed By: #### H EPATIC, LACTIC, CMP, LIPASE, CUBLD, BMP #### [place] [address] [place] Creatine kinase [Enzymatic a ctivity/volume] in Serum or PlasmaOrdered By: Hermes Velez on 08-30-2023 CK [Catalytic activity/Vol] 37 U/L Normal 30-223 [facility] Comment on above: Performed By: #### H EPATIC, LACTIC, CMP, LIPASE, CUBLD, BMP #### [facility] [address] [place] [address] [facility] Creatinine [Mass/volume] in Serum or PlasmaOrdered By: Hermes Velez on 08-30-2023 Creatinine [Mass/Vol] 1.11 mg/dL Normal 0.70-1.30 [facility] Comment on above: Performed By: #### H EPATIC, LACTIC, CMP, LIPASE, CUBLD, BMP #### [facility] [address] [place] [address] [facility] ECG 12 lead ECGon 08-30-2023 ECG 12 lead ECG [facility] [address] [place] [address] Electrocardiograph Report Signed Patient: Esme Steven MR#: [id number] : 1960 Acct:[id number] Age/Sex: 62 / M ADM Date: 08/30/23 Loc: Room: [address] [place] [address] Type: ADM [place] Attending Dr: Elliott Talley [...] was found Confirmed by Hermes Velez DO ([id number]) on 08/31/2023 1:02:08 AM Referred By: Electronically Signed By:Hermes Velez DO Transcribed By: MUS Signed By Hermes Velez DO 4 [address]102 Normal [facility] ECG 12 lead ECG [facility] [address] [place] [address] Electrocardiograph Report Signed Patient: Esme Steven MR#: [id number] : 1960 Acct:[id number] Age/Sex: 62 / M ADM Date: 08/30/23 Loc: Room: [address] [place] [address] Type: ADM [place] Attending Dr: Elliott Talley [...] Lateral leads Confirmed by Hermes Velez DO ([id number]) on 08/31/2023 1:02:08 AM Referred By: Electronically Signed By:Hermes Velez DO Transcribed By: MUS Signed By Hermes Velez DO 4 010 Normal [facility] Erythrocyte distribution wid th [Ratio] by Automated countOrdered By: Hermes Velez on 08-30-2023 Erythrocyte distribution width (RBC) [Ratio] 15.1 % High 12.0-14.8 [facility] Comment on above: Performed By: #### H EPATIC, LACTIC, CMP, LIPASE, CUBLD, BMP #### [address] Erythrocytes [#/volume] in B lood by Automated countOrdered By: Hermes Velez on 08-30-2023 RBC (Bld) [#/Vol] 4.70 10*6/uL Normal 3.90-5.60 [facility] Comment on above: Performed By: #### H EPATIC, LACTIC, CMP, LIPASE, CUBLD, BMP #### [address] Glucose [Mass/volume] in Ser um or PlasmaOrdered By: Hermes Velez on 08-30-2023 Glucose [Mass/Vol] 123 mg/dL High 70-[address] [facility] Comment on above: ADA recommended refe rence rangeRandom Glucose Reference Range is dependent on time and content of last meal. Glucose of more than 200 mg/dL in a nonstressed, ambulatory subject supports the diagnosis of Diabetes Mellitus. Result Comment: [place] om Glucose Reference Range is dependent on time and content of last meal. Glucose of more than 200 mg/dL in a nonstressed, ambulatory subject supports the diagnosis of Diabetes Mellitus. ADA recommended reference range Performed By: #### H EPATIC, LACTIC, CMP, LIPASE, CUBLD, BMP #### [address] Hematocrit [Volume Fraction] of Blood by Automated countOrdered By: Hermes Velez on 08-30-2023 Hematocrit (Bld) [Volume fraction] 48.1 % Normal 38.8-50.0 [facility] Comment on above: Performed By: #### H EPATIC, LACTIC, CMP, LIPASE, CUBLD, BMP #### [address] Hemoglobin [Mass/volume] in BloodOrdered By: Hermes Velez on 08-30-2023 Hemoglobin (Bld) [Mass/Vol] 16.2 g/dL Normal 13.0-17.0 [facility] Comment on above: Performed By: #### H EPATIC, LACTIC, CMP, LIPASE, CUBLD, BMP #### [address] Hepatic Panelon 08-30-2023 Albumin [Mass/Vol] 4.2 g/dL Normal 3.5-5.7 [facility] Comment on above: Performed By: #### H EPATIC, LACTIC, CMP, LIPASE, CUBLD, BMP #### [address] Bilirubin,Indirect 0.7 mg/dL Normal [facility] Comment on above: Performed By: #### H EPATIC, LACTIC, CMP, LIPASE, CUBLD, BMP #### [facility] [address] Bilirubin.indirect [Mass/Vol] 0.20 mg/dL High 0.03-0.18 [facility] Comment on above: Performed By: #### H EPATIC, LACTIC, CMP, LIPASE, CUBLD, BMP #### [facility] [address] INR in Platelet poor plasma by Coagulation assayOrdered By: Hermes Velez on 08-30-2023 INR Coag (PPP) [Relative time] 1.1 {INR} Normal [facility] Comment on above: INR Therapeutic Rang e [...] valves: 3 - 4.5 Performed By: #### H EPATIC, LACTIC, CMP, LIPASE, CUBLD, BMP #### [facility] [address] Ketones Auto test strip (U) [Mass/Vol]Ordered By: Hermes Velez on 08-30-2023 Ketones (U) [Mass/Vol] Negative Negative [facility] Lactate [Moles/volume] in Se rum or PlasmaOrdered By: Tony Comer on 08-30-2023 Lactate [Moles/Vol] 1.9 mmol/L Normal 0.5-2.2 [facility] Comment on above: Result Comment: PERF ORMED BY: [place] [address] PATHOLOGIST [employer] EXHIB[employer] DESIGNER ALAYNA CAPONE M.D. Performed By: #### H EPATIC, LACTIC, CMP, LIPASE, CUBLD, BMP #### [address] Lactic Acidon 08-30-2023 Lactate [Moles/Vol] 2.4 mmol/L Off scale high 0.5-2.2 [facility] Comment on above: Result Comment: Crit ical Result : Called to and read back by: MADELEINE BEASLEY at: 08/30/2023 18:47:05 by:LFM PERFORMED BY: [place] [address] PATHOLOGIST [employer] EXHIBIT DESIGNER ALAYNA CAPONE M.D. Performed By: #### H EPATIC, LACTIC, CMP, LIPASE, CUBLD, BMP #### [address] Leukocytes [#/volume] correc collins for nucleated erythrocytes in Blood by Automated counOrdered By: Hermes Velez on 08-30-2023 WBC corrected for nucl RBC Auto (Bld) [#/Vol] 14.5 10*3/uL 4.1-10.5 [facility] Leukocytes [#/volume] in Blo od by Automated countOrdered By: Hermes Velez on 08-30-2023 WBC (Bld) [#/Vol] 14.5 10*3/uL High 4.1-10.5 [facility] Comment on above: Performed By: #### H EPATIC, LACTIC, CMP, LIPASE, CUBLD, BMP #### [address] Lipase [Enzymatic activity/v olume] in Serum or PlasmaOrdered By: Hermes Velez on 08-30-2023 Lipase [Catalytic activity/Vol] 13.0 U/L Normal 11.0-82.0 [facility] Comment on above: Result Comment: PERF ORMED BY: [place] [address] PATHOLOGIST [employer] EXHIBIT DESIGNER ALAYNA CAPONE M.D. Performed By: #### H EPATIC, LACTIC, CMP, LIPASE, CUBLD, BMP #### [address] Lymphocytes [#/volume] in Bl ood by Automated countOrdered By: Hermes Velez on 08-30-2023 Lymphocytes (Bld) [#/Vol] 0.6 10*3/uL Low 1.00-4.8 [facility] Comment on above: Performed By: #### H EPATIC, LACTIC, CMP, LIPASE, CUBLD, BMP #### [address] Lymphocytes/100 leukocytes i n Blood by Automated countOrdered By: Hermes Velez on 08-30-2023 Lymphocytes/100 WBC (Bld) 4.4 % Normal . [facility] [facility] Comment on above: Performed By: #### H EPATIC, LACTIC, CMP, LIPASE, CUBLD, BMP #### [address] MCH [Entitic mass] by Automa collins countOrdered By: Hermes Velez on 08-30-2023 MCH (RBC) [Entitic mass] 34.5 pg Normal 27.5-35.2 [facility] Comment on above: Performed By: #### H EPATIC, LACTIC, CMP, LIPASE, CUBLD, BMP #### [address] MCHC Auto (RBC) [Mass/Vol]Or dered By: Hermes Velez on 08-30-2023 MCHC (RBC) [Mass/Vol] 33.7 g/dL 32.5-35.6 [facility] MCV [Entitic volume] by Auto mated countOrdered By: Hermes Velez on 08-30-2023 MCV (RBC) [Entitic vol] 102.3 fL High 83.5-101 [facility] Comment on above: Performed By: #### H EPATIC, LACTIC, CMP, LIPASE, CUBLD, BMP #### [address] Monocyte distribution width [Entitic volume] in Blood by AutomatedOrdered By: Hermes Velez on 08-30-2023 Monocyte distribution width Auto (Bld) [Entitic vol] 21.88 % High 0.00-20.00 [facility] Comment on above: For adults in ED, MD W > 20.0 may be associated with a higher risk of sepsis during the first 12 hrs of hospital admission Neutrophils [#/volume] in Bl ood by Automated countOrdered By: Hermes Velez on 08-30-2023 Neutrophils (Bld) [#/Vol] 13.4 10*3/uL High 1.8-7.7 [facility] Comment on above: Performed By: #### H EPATIC, LACTIC, CMP, LIPASE, CUBLD, BMP #### [address] Nitrite Test strip Ql (U)Ord ered By: Hermes Velez on 08-30-2023 Nitrite Ql (U) Negative Negative [facility] No Panel InformationOrdered By: Hermes Velez on 08-30-2023 Bacterial ID (NA Multiplex Assay) Presumptive Coag Neg. Staph [facility] Bacterial ID (NA Multiplex Assay) Staphylococcus sp coag neg Abnormal [facility] Estimated GFR (CKD-EPI) > 60.0 mL/Min [facility] Creatinine Clearance (Chem 82.75 [facility] Nucleated erythrocytes [Pres ence] in Blood by Automated countOrdered By: Hermes Velez on 08-30-2023 Nucleated RBC Auto Ql (Bld) 0.0 /100{WBC} 0-0.5 [facility] Partial Thromboplastin Timeo n 08-30-2023 aPTT Coag (Bld) [Time] 25.5 s Normal 25.1-36.5 Th e [facility] Comment on above: Result Comment: A he matocrit value greater than 55% may lead to inaccurate results in coagulation testing. Patients having hematocrit values >55% require a special collection tube for coagulation studies. Please contact the laboratory at [phone] for redraw instructions. PERFORMED BY: [facility] [address] [place] [address] PATHOLOGIST MUSEUM EXHIBIT DESIGNER ALAYNA CAPONE M.D. Performed By: #### H EPATIC, LACTIC, CMP, LIPASE, CUBLD, BMP #### [address] Platelet mean volume [Entiti c volume] in Blood by Automated countOrdered By: Hermes Velez on 08-30-2023 Platelet mean volume (Bld) [Entitic vol] 8.7 fL Normal 6.6-10.1 [facility] Comment on above: Performed By: #### H EPATIC, LACTIC, CMP, LIPASE, CUBLD, BMP #### [address] Platelets [#/volume] in Bloo d by Automated countOrdered By: Hermes Velez on 08-30-2023 Platelets (Bld) [#/Vol] 147 10*3/uL Low 150-450 [facility] Comment on above: Performed By: #### H EPATIC, LACTIC, CMP, LIPASE, CUBLD, BMP #### [address] Potassium [Moles/volume] in Serum or PlasmaOrdered By: Hermes Velez on 08-30-2023 Potassium [Moles/Vol] 3.3 mmol/L Low 3.5-5.1 [facility] Comment on above: Performed By: #### H EPATIC, LACTIC, CMP, LIPASE, CUBLD, BMP #### [address] Protein Auto test strip (U) [Mass/Vol]Ordered By: Hermes Velez on 08-30-2023 Protein (U) [Mass/Vol] Negative Negative [facility] Protein [Mass/volume] in Ser um or PlasmaOrdered By: Hermes Velez on 08-30-2023 Protein [Mass/Vol] 7.0 g/dL Normal 6.4-8.[address] [facility] Comment on above: Performed By: #### H EPATIC, LACTIC, CMP, LIPASE, CUBLD, BMP #### [address] Prothrombin time (PT)Ordered By: Hermes Velez on 08-30-2023 PT Coag (PPP) [Time] 12.8 s Normal 9.0-12.9 [facility] Comment on above: A hematocrit value g reater than 55% may lead to inaccurate results in coagulation testing. Patients having hematocrit values >55% require a special collection tube for coagulation studies. Please contact the laboratory at [phone] for redraw instructions. Result Comment: A he matocrit value greater than 55% may lead to inaccurate results in coagulation testing. Patients having hematocrit values >55% require a special collection tube for coagulation studies. Please contact the laboratory at [phone] for redraw instructions. Performed By: #### H EPATIC, LACTIC, CMP, LIPASE, CUBLD, BMP #### [facility] [address] Respiratory (Upper) Panel, P CRon 08-30-2023 Respiratory [...] A H3 Blank Space ---- PERFORMED BY: [place] [address] PATHOLOGIST MUSEUM EXHIBIT DESIGNER ALAYNA CAPONE M.D. Normal [facility] Comment on above: Performed By: #### U A #### [address] Respiratory pathogens DNA an d RNA panel - Nasopharynx by ROSIE with non-probe detectionOrdered By: Elliott Talley on 08-30-2023 Respiratory pathogens DNA and RNA panel ROSIE+non-probe (Nph) [facility] Serum globulin measurement b y calculation (mass/volume)Ordered By: Hermes Velez on 08-30-2023 Globulin (S) [Mass/Vol] 2.8 g/dL [facility] Comment on above: Performed By: #### H EPATIC, LACTIC, CMP, LIPASE, CUBLD, BMP #### [facility] [address] [place] [address] Serum or plasma albumin/glob ulin mass ratioOrdered By: Hermes Velez on 08-30-2023 Albumin/Globulin [Mass ratio] 1.5 {ratio} [facility] Comment on above: Performed By: #### H EPATIC, LACTIC, CMP, LIPASE, CUBLD, BMP #### [address] Serum or plasma anion gap de terminationOrdered By: Hermes Velez on 08-30-2023 Anion gap [Moles/Vol] 14.2 mmol/L Normal 6.0-15.0 [facility] Comment on above: Performed By: #### H EPATIC, LACTIC, CMP, LIPASE, CUBLD, BMP #### [facility] [address] [place] [address] Serum or plasma non-glucuron idated bilirubin measurement (mass/volume)Ordered By: Hermes Velez on 08-30-2023 Bilirubin.indirect [Mass/Vol] 0.7 mg/dL [facility] Sodium [Moles/volume] in Ser um or PlasmaOrdered By: Hermes Velez on 08-30-2023 Sodium [Moles/Vol] 136 mmol/L Normal 136-[address] [facility] Comment on above: Performed By: #### H EPATIC, LACTIC, CMP, LIPASE, CUBLD, BMP #### [address] Specific gravity Auto test s trip (U) [Rel density]Ordered By: Hermes Velez on 08-30-2023 Specific gravity (U) [Rel density] 1.016 1.001-1.03 0 [facility] Troponin I High Sensitivityo n 08-30-2023 Troponin I High Sensitivity 16.9 pg/mL Normal 0.0-20.0 [facility] Comment on above: Result Comment: PERF ORMED BY: [place] [address] PATHOLOGIST MUSEUM EXHIBIT DESIGNER ALAYNA CAPONE M.D. Performed By: #### H S TROP #### [address] Troponin I High Sensitivity 15.6 pg/mL Normal 0.0-20.0 [facility] Comment on above: Result Comment: PERF ORMED BY: [place] [address] PATHOLOGIST MUSEUM EXHIBIT DESIGNER ALAYNA CAPONE M.D. Performed By: #### H EPATIC, LACTIC, CMP, LIPASE, CUBLD, BMP #### [facility] [address] [place] [address] Troponin I.cardiac [Mass/vol ume] in Serum or Plasma by Detection limit <= 0.01 ng/Ordered By: Erin Suresh on 08-30-2023 Troponin I.cardiac DL <= 0.01 ng/mL [Mass/Vol] 16.9 pg/mL 0.0-20.0 [facility] Urea nitrogen [Mass/volume] in Serum or PlasmaOrdered By: Hermes Velez on 08-30-2023 Urea nitrogen [Mass/Vol] 21 mg/dL Normal 7-25 [facility] Comment on above: Performed By: #### H EPATIC, LACTIC, CMP, LIPASE, CUBLD, BMP #### [place] [address] [place] Urinalysison 08-30-2023 Appearance (U) Clear Normal Clear [facility] Comment on above: Order Comment: Name Collection Type:: Clean-Voided Midstream Performed By: #### U A #### [place] [id number] [place] Bilirubin,Urine Negative Normal Negative [facility] Comment on above: Order Comment: Name Collection Type:: Clean-Voided Midstream Performed By: #### U A #### [place] [address] [place] Glucose Ql (U) Normal Normal Normal [facility] Comment on above: Order Comment: Name Collection Type:: Clean-Voided Midstream Performed By: #### U A #### [address] Ketones Ql (U) Negative Normal Negative [facility] Comment on above: Order Comment: Name Collection Type:: Clean-Voided Midstream Performed By: #### U A #### [place] [address] [place] Leukocyte esterase Test strip Ql (U) Negative Normal Negative [facility] Comment on above: Order Comment: Name Collection Type:: Clean-Voided Midstream Performed By: #### U A #### [place] [address] [place] Nitrite,Urine Negative Normal Negative [facility] Comment on above: Order Comment: Name Collection Type:: Clean-Voided Midstream Performed By: #### U A #### [place] [id number] [place] Occult Blood,Urine Negative Normal Negative [facility] Comment on above: Order Comment: Name Collection Type:: Clean-Voided Midstream Result Comment: PERF ORMED BY: [place] [address] PATHOLOGIST MUSEUM EXHIBIT DESIGNER ALAYNA CAPONE M.D. Performed By: #### U A #### [place] [address] [place] Protein,Urine Negative Normal Negative [facility] Comment on above: Order Comment: Name Collection Type:: Clean-Voided Midstream Performed By: #### U A #### [facility] [address] [place] [address] Specificy Coats,Urine 1.016 Normal 1.001-1.03 0 [facility] Comment on above: Order Comment: Name Collection Type:: Clean-Voided Midstream Performed By: #### U A #### [address] Urobilinogen,Urine Normal Normal Normal [facility] Comment on above: Order Comment: Name Collection Type:: Clean-Voided Midstream Performed By: #### U A #### [address] Urine clarity by refractomet ry automatedOrdered By: Hermes Velez on 08-30-2023 Clarity Refractometry automated (U) Clear Clear [facility] Urine glucose measurement by automated test strip (mass/volume)Ordered By: Hermes Velez on 08-30-2023 Glucose Auto test strip (U) [Mass/Vol] Normal mg/dL Normal [facility] Urine hemoglobin detection b y automated test stripOrdered By: Hermes Velez on 08-30-2023 Hemoglobin Auto test strip Ql (U) Negative Negative [facility] Urine leukocyte esterase det ection by automated test stripOrdered By: Hermes Velez on 08-30-2023 Leukocyte esterase Auto test strip Ql (U) Negative Negative [facility] Urine pH measurement by auto mated test stripOrdered By: Hermes Velez on 08-30-2023 pH (U) 5.5 [pH] Normal 5.0-9.0 [facility] Comment on above: Order Comment: Name Collection Type:: Clean-Voided Midstream Performed By: #### U A #### [address] Urobilinogen Auto test strip (U) [Mass/Vol]Ordered By: Hermes Velez on 08-30-2023 Urobilinogen (U) [Mass/Vol] Normal mg/dL Normal [facility] XR chest 1V portableon 08-29 XR chest 1V portable [facility] Main Mobile [address] [place], [place] [id number] XRay Report Signed Patient: Esme Steven MR#: [id number] : 1960 Acct:[id number] Age/Sex: 62 / M ADM Date: 08/30/23 Loc: ER Room: Type: [facility] ER Attending Dr: Copies to: DO [...] Gisell Camilo M.D.08/30/2023 7:36 PM Dictation Location: [place] [address] Transcribed By: [facility] 08/30/231935 Dictated By: Gisell Camilo MD 08/30/231932 Signed By: 08/30/231935 Normal [facility] ECG 12 Leadon 08-16-[address] [facility] Work Phone: Sinus with PVC.s [facility] Work Phone: Carbon dioxide, total [Moles /volume] in Serum or PlasmaOrdered By: Antonio Steele on 08-02-2023 CO2 [Moles/Vol] 26.4 mmol/L Normal 21.0-31.0 [facility] Comment on above: Performed By: #### H S TROP #### [place] [id number] [place] Chloride [Moles/volume] in S ursula or PlasmaOrdered By: Antonio Steele on 08-02-2023 Chloride [Moles/Vol] 102 mmol/L Normal 98-107 [facility] Comment on above: Performed By: #### H S TROP #### [address] ECG 12 lead ECGon 08-02-2023 ECG 12 lead ECG [facility] [place] [address] Electrocardiograph Report Signed Patient: Esme Steven MR#: [id number] : 1960 Acct:[id number] Age/Sex: 62 / M ADM Date: 08/02/23 Loc: Room: Type: [facility] Attending Dr: Antonio Steele MD Ordering Provider: Antonio Steele MD Date of Service: 08/02/23 ECG/ECG 12 [...] in Lateral leads Confirmed by Ada Woodruff ([id number]) on 08/02/2023 5:37:54 PM Referred By: Antonio Steele Electronically Signed By:Ada Woodruff Transcribed By: MUS Signed By Ada Woodruff MD 4 1737 Normal [facility] ECG post procedureon 024 ECG post procedure [facility] [place] [address] Electrocardiograph Report Signed Patient: Esme Steven MR#: [id number] : 1960 Acct:[id number] Age/Sex: 62 / M ADM Date: 08/02/23 Loc: Room: Type: [facility] Attending Dr: Antonio Steele MD Ordering Provider: Antonio Steele MD Date of Service: 08/02/23/ ECG/ECG post [...] no longer present Confirmed by Ada Woodruff ([id number]) on 08/02/2023 5:38:48 PM Referred By: Antonio Steele Electronically Signed By:Ada Woodruff Transcribed By: MUS Signed By Ada Woodruff MD 4 1738 Normal [facility] Potassium [Moles/volume] in Serum or PlasmaOrdered By: Antonio Steele on 08-02-2023 Potassium [Moles/Vol] 4.1 mmol/L Normal 3.5-5.1 [facility] Comment on above: Performed By: #### H S TROP #### [address] Serum or plasma anion gap de terminationOrdered By: Antonio Steele on 08-02-2023 Anion gap [Moles/Vol] 13.7 mmol/L Normal 6.0-15.0 [facility] Comment on above: Result Comment: PERF ORMED BY: [place] [address] PATHOLOGIST MUSEUM EXHIBIT DESIGNER ALAYNA CAPONE M.D. Performed By: #### H S TROP #### [address] Sodium [Moles/volume] in Ser um or PlasmaOrdered By: Antonio Steele on 08-02-2023 Sodium [Moles/Vol] 138 mmol/L Normal 136-[address] [facility] Comment on above: Performed By: #### H S TROP #### [facility] [address] ECG 12 Leadon 07-27-2023 Atrial fibrillation with controlled rate [facility] Work Phone: CNPNon 07-09-2023 CNPN Telephone (RADHA) ----- ESME STEVEN ([id number]) 1960 M Date Time Provider Department 07/09/23 [...] Please process accordingly. MD Chino Jeffery Theresa CAFETERIA AIDE 07/09/2023 11:58 AM Signed Called and spoke to patient. He is aware of message below from Dr. Pineda. Patient verbalized understanding. Allergies As of Date: 07/09/2023 (No Known Allergies) Date Reviewed: 07/05/2023 Reviewed by: Heladio Pineda MD - Fully Assessed Reason for Visit: Results [95] Primary Visit Diagnosis:PMR (polymyalgia rheumatica) ([facility]) [M35.3] Other Visit Diagnoses:Elevated sed rate [R70.0] Elevated C-reactive protein (CRP) [R79.82] Vitamin D deficiency [E55.9] Order(s[facility] Order #: [id number] FUTURE C-REACTIVE PROTEIN (CRP) [SQCRP] Order #: [id number] FUTURE VITAMIN D 25 HYDROXY [SQVITD] Order #: [id number] FUTURE ergocalciferol 50,000 unit capsule (VITAMIN D2, [...] PMR (polymyalgi (more content not included)... Normal [facility] 25(OH)D3 SerPl-mCncon 2023 25-hydroxyvitamin D3 [Mass/Vol] 21.4 ng/mL Low 31.0-80.[address] [facility] Comment on above: Order Comment: Speci men Type: BLOOD SPECIMENOrdering Facility: [facility] Address: [address] [place] [address] Result Comment: Clas sification of 25 [place] Vitamin D status: Deficiency/Insufficiency: < or = 30 ng/ml. Sufficiency/Optimal Levels: 31-80 ng/mL Toxicity: > 100 ng/mL. Test performed by chemiluminescent immunoassay. Performed By: #### 1 989-3 ####[facility] LABIA [id number] [place] [address] [place] Aldolase SerPl-cCncon 2023 Aldolase [Catalytic activity/Vol] 5.3 mU/mL Normal 1.5-8.[address] [facility] Comment on above: Order Comment: Speci men Type: BLOOD SPECIMENOrdering Facility: [facility] Address: [address] [place] [address] Result Comment: This test was developed and its performance characteristics determined by [facility]'s Sarai Tabatha [facility] Pathology and Laboratory Medicine [place] (-[facility]). It has not been cleared or approved by the FDA. [facility] is regulated under CLIA as qualified to perform high-complexity testing. This test is used for clinical purposes. It should not be regarded as investigational or for research. Performed By: #### 1 761-6 ####[facility] LABCLIA [id number] [place] [address] [place] CK SerPl-cCncon 07-05-2023 CK [Catalytic activity/Vol] 52 U/L Normal 51-[address] [facility] Comment on above: Order Comment: Speci men Type: BLOOD SPECIMENOrdering Facility: [facility] Address: [address] [place] [address] Performed By: #### 2 132-9, 1988-5, 2157-6, 3084-1 ####[facility] IDALIA [id number] [facility] [id number] [address] [place] CNNURSEon 07-05-2023 CNNURSE Nurse Visit (RADHA) ----- ESME STEVEN ([id number]) 1960 M Date Time Provider Department 07/05/23 10:30 AM NURSE BRANDON ERLANGER [facility] GARCIA During your visit today, we recorded the following information about you: Referring Provider: HELADIO PINEDA [[id number]] Allergies As of Date: 07/05/2023 (No Known Allergies) Date Reviewed: 07/05/2023 Reviewed by: Ruben Monterroso MA - Fully Assessed Primary Visit Diagnosis:PMR (polymyalgia rheumatica) ([facility]) [M35.3] Prescriptions as of 07/05/2023 [...] Status:Closed by MICHEL RUSS on 07/05/[address] [facility] CNOVon 07-05-2023 CNOV Office Visit (RADHA ) ----- YAMILEXESME Fisher ([id number]) 1960 M Date Time Provider Department 07/05/23 [...] UEs worse since off steroids. Reports pain 7-910. Has extended AM stiffness. Feels safe at [...] with ster (more content not included)... Normal [facility] CRP SerPl-mCncon 07-05-2023 CRP [Mass/Vol] 0.8 mg/dL Normal <0.[address] [facility] Comment on above: Order Comment: Speci men Type: BLOOD SPECIMENOrdering Facility: [facility] Address: [address] [place] [address] Performed By: #### 2 132-9, 1987-5, 2157-6, 3084-1 ####[facility] LABCLIA [id number] [place] [address] [address] [place] CT biopsyon 07-05-2023 CT biopsy 5.3 U/L 1.5-8.1 [facility] Comment on above: This test was bethanie cabrera and its performance characteristics determined by [facility]'s Sarai Gordon Pathology and Laboratory Medicine [place] ([facility]). It has not been cleared or approved by the FDA. [facility] is regulated under CLIA as qualified to perform high-complexity testing. This test is used for clinical purposes. It should not be regarded as investigational or for research. ESR Westergren method (Bld) [Velocity]on 07-05-2023 ESR (Bld) [Velocity] 15 mm/h Normal 0-15 [facility] Comment on above: Order Comment: Speci men Type: BLOOD SPECIMENOrdering Facility: [facility] Address: [address] [place] [address] Performed By: #### 4 537-7 ####[facility] LABCLIA [id number] [facility] [id number] [address] [place] Laboratory - Chemistry and C hemistry - challengeon 07-05-2023 CK [Catalytic activity/Vol] 52 U/L 51-298 [facility] Cobalamin (Vitamin B12) [Mass/Vol] 685 pg/mL 232-1245 [facility] Urate [Mass/Vol] 7.2 mg/dL 4.0-8.1 [facility] Laboratory - Hematology and Cell countson 07-05-2023 ESR (Bld) [Velocity] 15 mm/h 0-15 [facility] No Panel Informationon 07-04 C-Reactive Protein, Quantitative 0.8 mg/dL <0.9 [facility] Serum or plasma calcidiol me asurement (mass/volume)on 07-05-2023 25-hydroxyvitamin D3 [Mass/Vol] 21.4 ng/mL 31.0-80.0 [facility] Comment on above: Classification of 25 [place] Vitamin D status: Deficiency/Insufficiency: < or = 30 ng/ml.Sufficiency/Optimal Levels: 31-80 ng/mLToxicity: > 100 ng/mL. Test performed by chemiluminescent immunoassay. Urate SerPl-mCncon Urate [Mass/Vol] 7.2 mg/dL Normal 4.0-8.1 [facility] Comment on above: Order Comment: Speci men Type: BLOOD SPECIMENOrdering Facility: [facility] Address: [address] [place] [address] Performed By: #### 2 132-9, 1987-08, 2156-09, 3083-04 ####[facility] LABCLIA [id number] [place] [id number] [place] Vit B12 SerPl-mCncon 07-04-2 024 Cobalamin (Vitamin B12) [Mass/Vol] 685 pg/mL Normal 232-[address] [facility] Comment on above: Order Comment: Speci men Type: BLOOD SPECIMENOrdering Facility: [facility] Address: [address] [place] [address] Performed By: #### 2 132-9, 1987-08, 2156-09, 3083-04 ####[facility] LABCLIA [id number] [place] [id number] [place] CNPNon 06-30-2023 CNPN Telephone (RADHA) ----- ESME STEVEN ([id number]) 1960 M Date Time Provider Department 06/30/23 HELADIO PINEDA During your visit today, we recorded the following information about you: Heladio Pineda MD 06/30/2023 5:58 PM Addendum Please Call patient if MyChart note not read to review results/released to My Chart if tests completed at F: Normal bone mineral density. Mildly low magnesium- [...] [facility] t [facility] Allergies As of Date: 06/30/2023 [...] Status:Closed by KORIN MOTT on 07/02/[address] [facility] BD DXA - AXIAL SKELETONon BD DXA - AXIAL SKELETON * * *Final Report* * * DATE OF EXAM: Jun 28 2023 12:56PM LAUREANO Alston - BD DXA - AXIAL SKELETON / PROCEDURE REASON: multiple diagnoses * * * * Physician Interpretation * * * * EXAMINATION: DXA BONE DENSITOMETRY BD DXA - AXIAL SKELETON, BD DXA - FOREARM SKELETON PATIENT DEMOGRAPHICS: Age: 62 years, Gender: Male SCANNER INFORMATION: DXA Model: [employer] Date Scanned: 06/28/2023 12:56 PM CLINICAL HISTORY: [...] had a previous bone density in the [facility] or the previous bone density was performed on a different DXA machine (new, updated model or different location) within the [facility]. VERTEBRAL FRACTURE ASSESSMENT Not performed. TRABECULAR BONE [...] FOR MORE INFORMATION ABOUT DIAGNOSIS AND TREATMENT: [facility] for Osteoporosis and Metabolic Bone Disease:? www.ccf.org/arthritis/ost eo National Osteoporosis Foundation:? www.nof.org International Society of Clinical Densitometry www.iscd.org Desizing Machine Back Tender: RAQUEL Transcribe Date/Time: Jun 28 2023 1:37P Dictated by : KEREN BRAVO DO This examination was interpreted and the report reviewed and electronically signed by: KEREN BRAVO DO on Jun 28 2023 1:47PM EST [id number] [facility] BD DXA - FOREARM SKELETONon 06-28-2023 BD [...] years, Gender: Male SCANNER INFORMATION: DXA Model: [employer] Date Scanned: 06/28/2023 12:56 PM CLINICAL HISTORY: [...] had a previous bone density in the [facility] or the previous bone density was performed on a different DXA machine (new, updated model or different location) within the [facility]. VERTEBRAL FRACTURE ASSESSMENT Not performed. TRABECULAR BONE [...] FOR MORE INFORMATION ABOUT DIAGNOSIS AND TREATMENT: [facility]osis and Metabolic Bone Disease:? www.ccf.org/arthritis/ost eo National Osteoporosis Foundation:? www.nof.org International Society of Clinical Densitometry www.iscd.org Desizing Machine Back Tender: RAQUEL Transcribe Date/Time: Jun 28 2023 1:37P Dictated by : KEREN BRAVO DO This examination was interpreted and the report reviewed and electronically signed by: KEREN BRAVO DO on Jun 28 2023 1:47PM EST [id number] [facility] DXA Radius and Ulna [Mass/Ar ea] Bone densityon 06-28-2023 [facility] DXA Skeletal system.axial Vi ews for bone densityon 06-28-2023 [facility] BASIC METABOLIC PANLon 06-11 Anion gap [Moles/Vol] 10 mmol/L Normal 5-15 [facility] Comment on above: Performed By: #### C RAIMUNDO GOLDSMITH, #### [facility] ([id number]) [address], [address] [place] [address] Calcium [Mass/Vol] 9.3 mg/dL Normal 8.5-10.5 [facility] Comment on above: Performed By: #### C RAIMUNDO GOLDSMITH, #### [facility] ([id number]) [address], [address] [place] [address] Chloride [Moles/Vol] 102 mmol/L Normal 98-109 [facility] Comment on above: Performed By: #### C RAIMUNDO GOLDSMITH, #### [facility] ([id number]) [address], [address] [place] [address] CO2 [Moles/Vol] 25 mmol/L Normal 22-32 [facility] Comment on above: Performed By: #### C RAIMUNDO GOLDSMITH, #### [facility] ([id number]) [address], [address] [place] [address] Creatinine [Mass/Vol] 0.95 mg/dL Normal 0.60-1.30 [facility] Comment on above: Result Comment: METH OD TRACEABLE TO IDMS STANDARD Performed By: #### C RAIMUNDO GOLDSMITH, #### [facility] ([id number]) [address], [address] [place] [address] GFR/1.73 sq M.predicted among non-blacks MDRD (S/P/Bld) [Vol rate/Area] 90 mL/min/{1.73_m2} Normal >59 [facility] Comment on above: Result Comment: Reported eGFR is based on the CKD-EPI 2020 equation that does not use a race coefficient. Performed By: #### C RAIMUNDO GOLDSMITH, #### [facility] ([id number]) [address], [address] [place] [address] Glucose [Mass/Vol] 117 mg/dL High 65-99 [facility] Comment on above: Performed By: #### C AGUS BMP, #### [facility] ([id number]) [address], [address] [place] [address] Potassium [Moles/Vol] 3.9 mmol/L Normal 3.5-5.0 [facility] Comment on above: Performed By: #### RAIMUNDO Wong BCA, #### [facility] ([id number]) [address], [address] [place] [address] Sodium [Moles/Vol] 137 mmol/L Normal 134-146 [facility] Comment on above: Performed By: #### RAIMUNDO Wong BCA, #### [facility] ([id number]) [address], [address] [place] [address] Urea nitrogen [Mass/Vol] 20 mg/dL Normal 5-27 [facility] Comment on above: Performed By: #### RAIMUNDO Wong BCA, #### [facility] ([id number]) [address], [address] [place] [address] CBC AND AUTO DIFFon 06-12-19 24 ABSOLUTE BASOPHIL 0.1 X10E9/L Normal 0.0-0.2 [facility] Comment on above: Performed By: #### Marvin GOLDSMITH BMP, #### [facility] ([id number]) [address], [address] [place] [address] ABSOLUTE NEUTROPHIL 5.9 X10E9/L Normal 1.5-6.6 [facility] Comment on above: Performed By: #### RAIMUNDO Wong BCA, #### [facility] ([id number]) [address], [address] [place] [address] Basophils/100 WBC (Bld) 0.6 % Normal [facility] Comment on above: Performed By: #### Marvin GOLDSMITH [facility], #### [facility] ([id number]) [address] [place] [address] Eosinophils (Bld) [#/Vol] 0.1 10*3/uL Normal 0.0-0.4 [facility] Comment on above: Performed By: #### Marvin GOLDSMITH [facility], #### [facility] ([id number]) [address] [place] [address] Eosinophils/100 WBC (Bld) 1.0 % Normal [facility] Comment on above: Performed By: #### RAIMUNDO Wong BCA, #### [facility] ([id number]) [address] [place] [address] Erythrocyte distribution width (RBC) [Ratio] 14.4 % Normal 11.5-15.0 [facility] Comment on above: Performed By: #### Marvin GOLDSMITH [facility], #### [facility] ([id number]) [address] [place] [address] Hematocrit (Bld) [Volume fraction] 46.6 % Normal 39-49 [facility] Comment on above: Performed By: #### Marvin GOLDSMITH BMP, #### [facility] ([id number]) [address], [address] [place] [address] Hemoglobin (Bld) [Mass/Vol] 15.6 g/dL Normal 13.0-17.0 [facility] Comment on above: Performed By: #### Marvin GOLDSMITH BMP, #### [facility] ([id number]) [address], [address] [place] [address] Lymphocytes (Bld) [#/Vol] 2.2 10*3/uL Normal 1.0-3.5 [facility] Comment on above: Performed By: #### RAIMUNDO Wong BCA, #### [facility] ([id number]) [address], [address] [place] [address] Lymphocytes/100 WBC (Bld) 25.1 % Normal [facility] Comment on above: Performed By: #### RAIMUNDO Wong BCA, #### [facility] ([id number]) [address], [address] [place] [address] MCH (RBC) [Entitic mass] 33.5 pg Normal 27-34 [facility] Comment on above: Performed By: #### RAIMUNDO Wong BCA, #### [facility] ([id number]) [address], [address] [place] [address] MCHC (RBC) [Mass/Vol] 33.4 g/dL Normal 32-36 [facility] Comment on above: Performed By: #### RAIMUNDO Wong BCA, #### [facility] ([id number]) [address], [address] [place] [address] MCV (RBC) [Entitic vol] 100 fL Normal 80-100 [facility] Comment on above: Performed By: #### RAIMUNDO Wong BCA, #### [facility] ([id number]) [address], [address] [place] [address] Monocytes (Bld) [#/Vol] 0.7 10*3/uL Normal 0-0.9 [facility] Comment on above: Performed By: #### RAIMUNDO Wong BCA, #### [facility] ([id number]) [address], [address] [place] [address] Monocytes/100 WBC (Bld) 7.5 % Normal [facility] Comment on above: Performed By: #### C RAIMUNDO GOLDSMITH, #### [facility] ([id number]) [address], [facility] [address] [place] [address] Neutrophils/100 WBC (Bld) 65.8 % Normal [facility] Comment on above: Performed By: #### RAIMUNDO Wong BCA, #### [facility] ([id number]) [address], [facility] [address] [place] [address] Platelet mean volume (Bld) [Entitic vol] 9.3 fL Normal 7-12 [facility] Comment on above: Performed By: #### RAMIUNDO Wong BCA, #### [facility] ([id number]) [address] [address] [place] [address] Platelets (Bld) [#/Vol] 216 10*3/uL Normal 150-450 [facility] Comment on above: Performed By: #### RAIMUNDO Wong BCA, #### [facility] ([id number]) [address], [facility] [address] [place] [address] RBC COUNT 4.65 X10E12/L Normal 4.10-5.70 [facility] Comment on above: Performed By: #### RAIMUNDO Wong BCA, #### [facility] ([id number]) [address] [address] [place] [address] WBC (Bld) [#/Vol] 8.9 10*3/uL Normal 4.0-11.0 [facility] Comment on above: Performed By: #### RAIMUNDO Wong BCA, #### [facility] ([id number]) [address], [address] [place] [address] MAGNESIUMon 06-12-2023 Magnesium [Mass/Vol] 1.5 mg/dL Low 1.8-2.6 [facility] Comment on above: Performed By: #### C VINH, PINR, 80312-4, 42693-1, CBCA, 44045-4, 37225-5 #### [facility] ([id number]) [address] [place] [address], [place] [address] US venous duplex LE BIon US venous duplex LE BI [facility] Main Mobile [address] [place] [address] Ultrasound Report Signed Patient: Esme Steven MR#: [id number] : 1960 Acct:[id number] Age/Sex: 62 / M ADM Date: 05/21/23 Loc: Room: Type: [facility] Attending Dr: Melinda SOLORZANO Ordering Provider: [...] Tony Rock MD05/22/2023 1:38 PM [facility] Tech: Yeni Rico Transcribed By: GWEN 05/22/23 1338 Dictated By: Tony Rock MD 05/22/23 1338 Signed By: 05/22/23 1338 Normal [facility] Automated basophil %Ordered By: Melinda Verduzco on 05-21-2023 Basophils/100 WBC (Bld) 0.6 % Normal . [facility] Comment on above: Order Comment: Reaso n for Exam Pain due to internal orthopedic prosthetic devices, implants Performed By: #### C BC, BMP #### [address] Automated basophil countOrde red By: Melinda Verduzco on 05-21-2023 Basophils (Bld) [#/Vol] 0.1 10*3/uL Normal 0.0-0.2 [facility] Comment on above: Order Comment: Reaso n for Exam Pain due to internal orthopedic prosthetic devices, implants Performed By: #### C BC, BMP #### [address] Automated blood monocyte cou ntOrdered By: Melinda Verduzco on 05-21-2023 Monocytes (Bld) [#/Vol] 1.0 10*3/uL High 0.0-0.8 [facility] Comment on above: Order Comment: Reaso n for Exam Pain due to internal orthopedic prosthetic devices, implants Performed By: #### C BC, BMP #### [address] Automated eosinophil %Ordere d By: Melinda Verduzco on 05-21-2023 Eosinophils/100 WBC (Bld) 0.4 % Normal . [facility] Comment on above: Order Comment: Reaso n for Exam Pain due to internal orthopedic prosthetic devices, implants Performed By: #### C BC, BMP #### [address] Automated eosinophil countOr dered By: Melinda Verduzco on 05-21-2023 Eosinophils (Bld) [#/Vol] 0.1 10*3/uL Normal 0.0-0.45 [facility] Comment on above: Order Comment: Reaso n for Exam Pain due to internal orthopedic prosthetic devices, implants Performed By: #### C BC, BMP #### [address] Automated monocyte %Ordered By: Melinda Verduzco on 05-21-2023 Monocytes/100 WBC (Bld) 6.8 % Normal . [facility] Comment on above: Order Comment: Reaso n for Exam Pain due to internal orthopedic prosthetic devices, implants Performed By: #### C BC, BMP #### [address] Automated neutrophil %Ordere d By: Melinda Verduzco on 05-21-2023 Neutrophils/100 WBC (Bld) 78.3 % Normal . [facility] Comment on above: Order Comment: Reaso n for Exam Pain due to internal orthopedic prosthetic devices, implants Performed By: #### C BC, BMP #### [address] C reactive protein [Mass/vol ume] in Serum or PlasmaOrdered By: Melinda Verduzco on 05-21-2023 CRP [Mass/Vol] 0.5 mg/dL 0.0-0.5 [facility] C-Reactive Proteinon 024 C-Reactive Protein 0.5 mg/dL Normal 0.0-0.5 [facility] Comment on above: Order Comment: Reaso n for Exam Pain due to internal orthopedic prosthetic devices, implants Result Comment: PERF ORMED BY: [place] [address] PATHOLOGIST MUSEUM EXHIBIT DESIGNER ALAYNA CAPONE M.D. Performed By: #### C BC, BMP #### [address] Complete Blood Count Auto Di ffon 05-21-2023 Mean Corpuscular HGB Conc 33.1 g/dL Normal 32.5-35.6 [facility] Comment on above: Order Comment: Reaso n for Exam Pain due to internal orthopedic prosthetic devices, implants Performed By: #### C BC, BMP #### [place] [address] [place] NRBC% 0.1 /100{WBC} Normal 0-0.5 [facility] Comment on above: Order Comment: Reaso n for Exam Pain due to internal orthopedic prosthetic devices, implants Performed By: #### C BC, BMP #### [place] [address] [place] D-Dimer High Sensitivityon 0 05-21-2023 D-Dimer High Sensitivity 213 ng/mL Normal 0-243 [facility] Comment on above: [...] coagulation studies. Please contact the laboratory at [phone] for redraw instructions. PERFORMED BY: [place] [address] PATHOLOGIST [employer] EXHIBIT DESIGNER ALAYNA CAPONE M.D. Performed By: #### C UMU, BMP #### [address] Erythrocyte Sedimentation Ra kip 05-21-2023 ESR (Bld) [Velocity] 16 mm/h Normal 0-19 [facility] Comment on above: Order Comment: Reaso n for Exam Pain due to internal orthopedic prosthetic devices, implants Result Comment: PERF ORMED BY: [place] [address] PATHOLOGIST [employer] EXHIBIT DESIGNER ALAYNA CAPONE M.D. Performed By: #### C BC, BMP #### [address] Erythrocyte distribution wid th [Ratio] by Automated countOrdered By: Melinda Verduzco on 05-21-2023 Erythrocyte distribution width (RBC) [Ratio] 14.5 % Normal 12.0-14.8 [facility] Comment on above: Order Comment: Reaso n for Exam Pain due to internal orthopedic prosthetic devices, implants Performed By: #### C BC, BMP #### [address] Erythrocyte sedimentation ra te by Photometric methodOrdered By: Melinda Verduzco on 05-21-2023 ESR Photometric method (Bld) [Velocity] 16 mm/hr 0-19 [facility] Erythrocytes [#/volume] in B lood by Automated countOrdered By: Melinda Verduzco on 05-21-2023 RBC (Bld) [#/Vol] 4.68 10*6/uL Normal 3.90-5.60 [facility] Comment on above: Order Comment: Reaso n for Exam Pain due to internal orthopedic prosthetic devices, implants Performed By: #### C BC, BMP #### [facility] [address] [id number] [facility] Fibrin D-dimer [Presence] in Platelet poor plasma by Latex agglutinationOrdered By: Melinda Verduzco on 05-21-2023 Fibrin D-dimer LA Ql (PPP) 213 ng/mL 0-243 [facility] Comment on above: The reference range for [...] coagulation studies. Please contact the laboratory at [phone] for redraw instructions. Hematocrit [Volume Fraction] of Blood by Automated countOrdered By: Melinda Verduzco on 05-21-2023 Hematocrit (Bld) [Volume fraction] 47.1 % Normal 38.8-50.0 [facility] Comment on above: Order Comment: Reaso n for Exam Pain due to internal orthopedic prosthetic devices, implants Performed By: #### C BC, BMP #### [facility] [address] [place] [address] Hemoglobin [Mass/volume] in BloodOrdered By: Melinda Verduzco on 05-21-2023 Hemoglobin (Bld) [Mass/Vol] 15.6 g/dL Normal 13.0-17.0 [facility] Comment on above: Order Comment: Reaso n for Exam Pain due to internal orthopedic prosthetic devices, implants Performed By: #### C BC, BMP #### [facility] [address] [place] [address] [place] Leukocytes [#/volume] correc collins for nucleated erythrocytes in Blood by Automated counOrdered By: Melinda Verduzco on 05-21-2023 WBC corrected for nucl RBC Auto (Bld) [#/Vol] 15.1 10*3/uL 4.1-10.5 [facility] Leukocytes [#/volume] in Blo od by Automated countOrdered By: Melinda Verduzco on 05-21-2023 WBC (Bld) [#/Vol] 15.1 10*3/uL High 4.1-10.5 [facility] Comment on above: Order Comment: Reaso n for Exam Pain due to internal orthopedic prosthetic devices, implants Performed By: #### C BC, BMP #### [facility] [address] [place] [address] [place] Lymphocytes [#/volume] in Bl ood by Automated countOrdered By: Melinda Verduzco on 05-21-2023 Lymphocytes (Bld) [#/Vol] 2.1 10*3/uL Normal 1.00-4.8 [facility] Comment on above: Order Comment: Reaso n for Exam Pain due to internal orthopedic prosthetic devices, implants Performed By: #### C BC, BMP #### [facility] [address] [place] [address] [place] Lymphocytes/100 leukocytes i n Blood by Automated countOrdered By: Melinda Verduzco on 05-21-2023 Lymphocytes/100 WBC (Bld) 13.9 % Normal . [facility] Comment on above: Order Comment: Reaso n for Exam Pain due to internal orthopedic prosthetic devices, implants Performed By: #### C BC, BMP #### [address] [place] [address] [place] MCH [Entitic mass] by Automa collins countOrdered By: Melinda Verduzco on 05-21-2023 MCH (RBC) [Entitic mass] 33.3 pg Normal 27.5-35.2 [facility] Comment on above: Order Comment: Reaso n for Exam Pain due to internal orthopedic prosthetic devices, implants Performed By: #### C BC, BMP #### [facility] [address] [place] [address] MCHC Auto (RBC) [Mass/Vol]Or dered By: Melinda Verduzco on 05-21-2023 MCHC (RBC) [Mass/Vol] 33.1 g/dL 32.5-35.6 [facility] MCV [Entitic volume] by Auto mated countOrdered By: Melinda Verduzco on 05-21-2023 MCV (RBC) [Entitic vol] 100.7 fL Normal 83.5-101 [facility] Comment on above: Order Comment: Reaso n for Exam Pain due to internal orthopedic prosthetic devices, implants Performed By: #### C BC, BMP #### [facility] [address] [place] [address] Neutrophils [#/volume] in Bl ood by Automated countOrdered By: Melinda Verduzco on 05-21-2023 Neutrophils (Bld) [#/Vol] 11.8 10*3/uL High 1.8-7.7 [facility] Comment on above: Order Comment: Reaso n for Exam Pain due to internal orthopedic prosthetic devices, implants Performed By: #### C BC, BMP #### [facility] [address] [place] [address] [place] Nucleated erythrocytes [Pres ence] in Blood by Automated countOrdered By: Melinda Verduzco on 05-21-2023 Nucleated RBC Auto Ql (Bld) 0.1 /100{WBC} 0-0.5 [facility] Platelet mean volume [Entiti c volume] in Blood by Automated countOrdered By: Melinda Verduzco on 05-21-2023 Platelet mean volume (Bld) [Entitic vol] 8.7 fL Normal 6.6-10.1 [facility] Comment on above: Order Comment: Reaso n for Exam Pain due to internal orthopedic prosthetic devices, implants Performed By: #### C BC, BMP #### [facility] [address] [place] [address] Platelets [#/volume] in Bloo d by Automated countOrdered By: Melinda Verduzco on 05-21-2023 Platelets (Bld) [#/Vol] 228 10*3/uL Normal 150-450 [facility] Comment on above: Order Comment: Reaso n for Exam Pain due to internal orthopedic prosthetic devices, implants Performed By: #### C BC, BMP #### [facility] [address] [place] [address] XR knee LT 3V - NOT FOR ER U Florentino 05-21-2023 XR knee LT 3V - NOT FOR ER USE [facility] Main Mobile [address] [place] [address] XRay Report Signed Patient: Esme Steven MR#: [id number] : 1960 Acct:[id number] Age/Sex: 62 / M ADM Date: 05/21/23 Loc: [facility] Room: Type: [facility] Attending Dr: Sarai Mendez II, MD Copies [...] PROCESS. Impression dictated by: Alex Castro Jr., D.O.05/21/2023 3:12 PM Dictation Location: [place] [address] Transcribed By: [facility] 05/21/231511 Dictated By: Alex Castro Jr, DO 05/21/231510 Signed By: 05/21/23 151 Normal [facility] XR hip RT min 2V(w/wo pelvis )*on 05-16-2023 XR hip RT min 2V(w/wo pelvis)* [facility] Main Mobile [address] [place] [address] XRay Report Signed Patient: Esme Steven MR#: [id number] : 1960 Acct:[id number] Age/Sex: 62 / M ADM Date: 05/16/23 Loc: [facility] Room: Type: [facility] Attending Dr: Sarai Mendez II, MD Copies [...] Gisell Camilo M.D.05/16/2023 3:53 PM Dictation Location: [place] [address] Transcribed By: [facility] 05/16/23 1553 Dictated By: Gisell Camilo MD 05/16/23 1532 Signed By: 05/16/23 1553 Normal [facility] CBC AND AUTO DIFFon 04-18-19 ABSOLUTE BASOPHIL 0.1 X10E9/L Normal 0.0-0.2 [facility] Comment on above: Performed By: #### C MP, PINR, 66060-4, 93094-8, CBCA, 91568-3, 24740-0 #### [facility] ([id number]) [address] [place] [address], [place] [address] ABSOLUTE NEUTROPHIL 10.9 X10E9/L High 1.5-6.6 [facility] Comment on above: Performed By: #### C MP, PINR, 60961-8, 82728-4, CBCA, 79579-9, 16264-3 #### [facility] ([id number]) [address] [place] [address] Basophils/100 WBC (Bld) 0.4 % Normal [facility] Comment on above: Performed By: #### C MP, PINR, 44756-3, 71603-1, CBCA, 16868-7, 80573-5 #### [facility] ([id number]) [address] [place] [address] Eosinophils (Bld) [#/Vol] 0.0 10*3/uL Normal 0.0-0.4 [facility] Comment on above: Performed By: #### C MP, PINR, 22411-2, 73079-7, CBCA, 96349-1, 67631-4 #### [facility] ([id number]) [address] [place] [address] Eosinophils/100 WBC (Bld) 0.3 % Normal [facility] Comment on above: Performed By: #### C MP, PINR, 87904-5, 90126-4, CBCA, 63571-1, 58426-0 #### [facility] ([id number]) [address] [place] [address] Erythrocyte distribution width (RBC) [Ratio] 14.2 % Normal 11.5-15.0 [facility] Comment on above: Performed By: #### C MP, PINR, 79928-9, 63463-6, CBCA, 40166-0, 49469-2 #### [facility] ([id number]) [address] [place] [address] Hematocrit (Bld) [Volume fraction] 49.6 % High 39-49 [facility] Comment on above: Performed By: #### C MP, PINR, 14555-1, 29654-8, CBCA, 42631-8, 59838-2 #### [facility] ([id number]) [address] [place] [address] Hemoglobin (Bld) [Mass/Vol] 16.7 g/dL Normal 13.0-17.0 [facility] Comment on above: Performed By: #### C MP, PINR, 60790-7, 56345-9, CBCA, 33070-3, 72914-8 #### [facility] ([id number]) [address] [place] [address] Lymphocytes (Bld) [#/Vol] 1.6 10*3/uL Normal 1.0-3.5 [facility] Comment on above: Performed By: #### C MP, PINR, 54846-2, 49172-8, CBCA, 78356-6, 96989-4 #### [facility] ([id number]) [address] [place] [address] 40388 Lymphocytes/100 WBC (Bld) 11.9 % Normal [facility] Comment on above: Performed By: #### C MP, PINR, 34357-0, 54462-5, CBCA, 94802-5, 97172-7 #### [facility] ([id number]) [address] [place] [address] 63788 MCH (RBC) [Entitic mass] 34.1 pg High 27-34 [facility] Comment on above: Performed By: #### C MP, PINR, 47339-8, 80131-8, CBCA, 01273-7, 46903-7 #### [facility] ([id number]) [address] [place] [address] 20378 MCHC (RBC) [Mass/Vol] 33.7 g/dL Normal 32-36 [facility] Comment on above: Performed By: #### C MP, PINR, 26912-1, 02903-7, CBCA, 77788-7, 59819-6 #### [facility] ([id number]) [address] [place] [address] 26787 MCV (RBC) [Entitic vol] 101 fL High 80-100 [facility] Comment on above: Performed By: #### C MP, PINR, 44743-6, 20667-5, CBCA, 60740-4, 91285-0 #### [facility] ([id number]) [address] [place] [address] 57810 Monocytes (Bld) [#/Vol] 0.5 10*3/uL Normal 0-0.9 [facility] Comment on above: Performed By: #### C MP, PINR, 92729-2, 40131-8, CBCA, 05881-1, 11471-8 #### [facility] ([id number]) [address] [place] [address] 17647 Monocytes/100 WBC (Bld) 3.7 % Normal [facility] Comment on above: Performed By: #### C MP, PINR, 01761-1, 55564-8, CBCA, 51760-7, 52544-6 #### [facility] ([id number]) [address] [place] [address] 77723 Neutrophils/100 WBC (Bld) 83.7 % Normal [facility] Comment on above: Performed By: #### C MP, PINR, 05761-9, 03899-8, CBCA, 28000-0, 55919-4 #### [facility] ([id number]) [address] [place] [address] 06024 Platelet mean volume (Bld) [Entitic vol] 8.5 fL Normal 7-12 [facility] Comment on above: Performed By: #### C MP, PINR, 36788-2, 42451-1, CBCA, 95867-6, 71711-3 #### [facility] ([id number]) [address] [place] [address] 30579 Platelets (Bld) [#/Vol] 264 10*3/uL Normal 150-450 [facility] Comment on above: Performed By: #### C MP, PINR, 81698-2, 35991-8, CBCA, 36148-2, 67356-4 #### [facility] ([id number]) [address] [place] [address] 75517 RBC COUNT 4.89 X10E12/L Normal 4.10-5.70 [facility] Comment on above: Performed By: #### C MP, PINR, 61924-1, 82507-7, CBCA, 32351-2, 08473-2 #### [facility] ([id number]) [address] [place] [address] 54982 WBC (Bld) [#/Vol] 13.0 10*3/uL High 4.0-11.0 [facility] Comment on above: Performed By: #### C MP, PINR, 22695-0, 45978-8, CBCA, 42249-9, 26493-1 #### [facility] ([id number]) [address] [place] [address] 29218 COMPREHENSIVE METABOLIC PANE Jose 04-18-2023 Albumin [Mass/Vol] 4.4 g/dL Normal 3.2-5.3 [facility] Comment on above: Performed By: #### C MP, PINR, 05651-6, 05176-5, CBCA, 17516-5, 28020-9 #### [facility] ([id number]) [address] [place] [address] 29967 ALP [Catalytic activity/Vol] 69 U/L Normal 39-130 [facility] Comment on above: Performed By: #### C MP, PINR, 04902-5, 70562-9, CBCA, 72351-0, 90411-9 #### [facility] ([id number]) [address] [place] [address] 29319 ALT [Catalytic activity/Vol] 31 U/L Normal 0-40 [facility] Comment on above: Performed By: #### C MP, PINR, 16730-9, 20902-6, CBCA, 33204-6, 09645-3 #### [facility] ([id number]) [address] [place] [address] 32372 Anion gap [Moles/Vol] 9 mmol/L Normal 5-15 [facility] Comment on above: Performed By: #### C MP, PINR, 27701-8, 03050-3, CBCA, 53333-9, 75215-0 #### [facility] ([id number]) [address] [place] [address] 84120 AST [Catalytic activity/Vol] 26 U/L Normal 0-41 [facility] Comment on above: Performed By: #### C MP, PINR, 85787-5, 44313-9, CBCA, 35745-9, 78193-4 #### [facility] ([id number]) [address] [place] [address] 03683 Bilirubin [Mass/Vol] 0.8 mg/dL Normal 0.3-1.2 [facility] Comment on above: Performed By: #### C MP, PINR, 33901-4, 73615-2, CBCA, 64017-1, 46125-6 #### [facility] ([id number]) [address] [place] [address] 80845 Calcium [Mass/Vol] 9.6 mg/dL Normal 8.5-10.5 [facility] Comment on above: Performed By: #### C MP, PINR, 99460-8, 91037-5, CBCA, 30902-9, 66123-1 #### [facility] ([id number]) [address] [place] [address] 71739 Chloride [Moles/Vol] 99 mmol/L Normal 98-109 [facility] Comment on above: Performed By: #### C MP, PINR, 45042-5, 70746-7, CBCA, 76261-1, 13787-4 #### [facility] ([id number]) [address] [place] [address] 41621 CO2 [Moles/Vol] 24 mmol/L Normal 22-32 [facility] Comment on above: Performed By: #### C MP, PINR, 89814-1, 69928-7, CBCA, 78560-7, 52474-7 #### [facility] ([id number]) [address] [place] [address] 93793 Creatinine [Mass/Vol] 1.26 mg/dL High 0.70-1.20 [facility] Comment on above: Result Comment: METH OD TRACEABLE TO IDMS STANDARD Performed By: #### C MP, PINR, 24190-1, 41072-1, CBCA, 20902-0, 05308-2 #### [facility] ([id number]) [address] [place] [address] 44127 GFR/1.73 sq M.predicted among non-blacks MDRD (S/P/Bld) [Vol rate/Area] 64 mL/min/{1.73_m2} Normal >59 [facility] Comment on above: Result Comment: Reported eGFR is based on the CKD-EPI 2020 equation that does not use a race coefficient. Performed By: #### C MP, PINR, 12428-0, 32238-1, CBCA, 38024-3, 58375-9 #### [facility] ([id number]) [address] [place] [address] 27891 Glucose [Mass/Vol] 196 mg/dL High 65-99 [facility] Comment on above: Performed By: #### C MP, PINR, 85515-0, 64431-5, CBCA, 10012-1, 74740-0 #### [facility] ([id number]) [address] [place] [address] 08234 Potassium [Moles/Vol] 3.8 mmol/L Normal 3.5-5.0 [facility] Comment on above: Performed By: #### C MP, PINR, 27780-1, 24872-4, CBCA, 97123-2, 43870-4 #### [facility] ([id number]) [address] [place] [address] 96450 Protein [Mass/Vol] 7.7 g/dL Normal 6.0-8.0 [facility] Comment on above: Performed By: #### C MP, PINR, 95224-1, 46578-8, CBCA, 09102-5, 11410-0 #### [facility] ([id number]) [address] [place] [address] 48618 Sodium [Moles/Vol] 132 mmol/L Low 134-146 [facility] Comment on above: Performed By: #### C MP, PINR, 65198-2, 81840-1, CBCA, 09533-3, 45555-5 #### [facility] ([id number]) [address] [place] [address] 14159 Urea nitrogen [Mass/Vol] 40 mg/dL High 5-27 [facility] Comment on above: Performed By: #### C MP, PINR, 49373-9, 88757-0, CBCA, 40764-7, 13723-9 #### [facility] ([id number]) [address] [place] [address] 50701 MAGNESIUMon 04-18-2023 Magnesium [Mass/Vol] 1.7 mg/dL Low 1.8-2.6 [facility] Comment on above: Performed By: #### C MP, PINR, 99111-6, 02151-4, CBCA, 86448-6, 49803-6 #### [facility] ([id number]) [address] [place] [address] 66731 Natriuretic peptide B [Mass/ Vol]on 04-18-2023 Natriuretic peptide B (Bld) [Mass/Vol] 206 pg/mL High <100.0 [facility] Comment on above: Performed By: #### C MP, PINR, 56814-8, 64593-8, CBCA, 34388-6, 67443-6 #### [facility] ([id number]) [address] [place] [address] 06006 PROTIME AND INRon 04-18-2023 INR Coag (PPP) [Relative time] 1.1 {INR} Normal 0.8-1.1 [facility] Comment on above: Performed By: #### C MP, PINR, 87598-0, 08187-2, CBCA, 32969-3, 39457-9 #### [facility] ([id number]) [address] [place] [address] 05110 PT Coag (PPP) [Time] 12.3 s Normal 9.8-13.2 [facility] Comment on above: Result Comment: NEW REFERENCE RANGE Performed By: #### C MP, PINR, 10915-5, 56100-1, CBCA, 39722-0, 17688-2 #### [facility] ([id number]) [address] [place] [address] 06407 TROPONIN Ion 04-18-2023 Troponin I.cardiac [Mass/Vol] 0.01 ng/mL Normal 0.00-0.04 [facility] Comment on above: Performed By: #### C MP, PINR, 59914-4, 64661-7, CBCA, 45409-9, 23545-4 #### [facility] ([id number]) [address] [place] [address] 11353 aPTT Coag (PPP) [Time]on aPTT Coag (Bld) [Time] 28 s Normal 26-37 [facility] Comment on above: Result Comment: NEW REFERENCE RANGE Performed By: #### C MP, PINR, 66995-7, 84566-6, CBCA, 46191-6, 23964-5 #### [facility] ([id number]) [address] [place] [address] XR hip RT min 2V(w/wo pelvis )*on 03-29-2023 XR hip RT min 2V(w/wo pelvis)* [facility] Main Mobile [address] [place] [address] 72594 XRay Report Signed Patient: Esme Steven MR#: [id number] : 1960 Acct:[id number] Age/Sex: 62 / M ADM Date: 03/29/23 Loc: [facility] Room: Type: [facility] Attending Dr: Sarai Mendez II, MD Copies [...] Rubio Vazquez M.D.03/29/2023 4:28 PM Dictation Location: [place] [address] Transcribed By: [facility] 03/29/23 2464 Dictated By: Rubio Vazquez II, MD 03/29/23 3315 Signed By: 03/29/23 1628 Normal [facility] CNPLesly 03-07-2023 CNPN Telephone (RADHA) ----- ESME STEVEN ([id number]) 1960 M Date Time Provider Department 03/07/23 [...] you. 03/05/23 normal esr 9, crp<0.3; Kerry Beasley, GEMINI 03/07/2023 5:26 PM Signed Pt identified [...] Results [95] Primary Visit Diagnosis:PMR (polymyalgia rheumatica) ([facility]) [M35.3] Other Visit Diagnoses:Elevated sed rate [R70.0] Elevated C-reactive protein (CRP) [R79.82] Order(s):SED RATE WESTERGREN [SQWSR] Order #: [id number] FUTURE C-REACTIVE PROTEIN (CRP) [SQCRP] Order #: [id number] FUTURE Prescriptions as of 03/13/2023 - celecoxib [...] one(1) tablet daily. 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 Normal [facility] CRP SerPl-mCncon 03-05-2023 CRP [Mass/Vol] mg/L Normal <0.[address] [facility] Comment on above: Order Comment: Speci men Type: BLOOD SPECIMENOrdering Facility: [facility] Address: [address] [place] [address] Performed By: #### 1 988-5 ####[facility] [id number] [place] [address] [place] ESR Westergren method (Bld) [Velocity]on 03-05-2023 ESR (Bld) [Velocity] 9 mm/h Normal 0-15 [facility] Comment on above: Order Comment: Speci men Type: BLOOD SPECIMENOrdering Facility: [facility] Address: [address] [place] [address] Performed By: #### 4 537-7 ####[facility] [id number] [place] [address] [place] Jose 02-13-2023 L ----- Specimen: [id number] Received: 02/13/23 Status: ESTEFANIA Leopoldo Num: [id number] Spec Type: Surgical Subm Dr: Sarai Mendez MD Tissues: A Femoral Head - Other than Fracture (RT HIP) Procedures: HE/2, Gross/Micro L3, Decalcification Age/ Patient Sex Location Account Attending Physician Esme Steven/Harmony MD [id number] Sarai Mendez MD SPEC NUM: [id number] RECD: 02/13/23 STATUS: ESTEFANIA LEOPOLDO NUM: [id number] DEUCE: 02/13/[address] [facility] [address]: Sarai Mendez MD ENTERED: 02/13/[address] [facility] [address]: SPEC TYPE: Surgical DEPT: S ORDERED: HE/2, Gross/Micro L3, Decalcification ORDERED: HE2, Gross/Micro L3, Decalcification Pathological Diagnosis Right hip [...] Thinning of the articular cartilage is identified. Working Manager are submitted following decalcification in two cassettes labeled A1-A2. Specimen: [id number] Received: 02/13/23 Status: ESTEFANIA Mina Num: [id number] Spec Type: Surgical Subm Dr: Sarai Mendez MD Tissues: A Femoral Head - Other than Fracture (RT HIP) Procedures: HE/2, Gross/Micro L3, Decalcification Patient: Esme Steven [id number] (Continued) Specimen: [id number] Received: 02/13/23 (Continued) Signed (signature on file) Sean Hubbard MD 02/14/23 1701 Specimen: [id number] Received: 02/13/23 Status: ALYSONYasmine Mina Num: [id number] Spec Type: Surgical Subm Dr: Sarai Mendez MD Tissues: A Femoral Head - Other than Fracture (RT HIP) Procedures: HE/2, Gross/Micro L3, Decalcification Patient: Esme Steven [id number] (Continued) Specimen: [id number] Received: 02/13/23 (Continued) Microscopic Description Two H E slides reviewed. The microscopic examination confirms the diagnosis. CPT Codes 62696, 72846 Specimen: [id number] Received: 02/13/23 Status: ESTEFANIA Leopoldo Num: [id number] Spec Type: Surgical Subm Dr: Sarai Mendez MD Tissues: A Femoral Head - Other than Fracture (RT HIP) Procedures: HE/2, Gross/Micro L3, Decalcification Patient: Esme Steven [id number] (Continued) Signed (signature on file) Sean Hubbard MD 02/14/23 1701 Normal [facility] XR hip RT 1Von 02-13-2023 XR hip RT 1V [facility] [place] [address] XRay Report Signed Patient: Esme Steven MR#: [id number] : 1960 Acct:[id number] Age/Sex: 62 / M ADM Date: 02/13/23 Loc: MD Room: Type: [facility] Attending Dr: Sarai Mendez II, MD Copies to: Sarai Mendez MD Ordering Provider: Sarai Mendez MD Date of Service: 02/13/23 XR/XR hip RT 1V: . ([id number]) XR/XR low pelvis w/RT x-table hip: Total [...] Gisell Camilo M.D.02/13/2023 10:54 AM Dictation Location: [address] By: GWEN 02/13/23 1054 Dictated By: Gisell Camilo MD 02/13/23 1050 Signed By: 02/13/23 1054 Normal [facility] Basophils Auto (Bld) [#/Vol] Ordered By: Sarai Mendez on 01-29-2023 Basophils (Bld) [#/Vol] 0.1 10*3/uL 0.0-0.2 [facility] Basophils/100 WBC Auto (Bld) Ordered By: Sarai Mendez on 01-29-2023 Basophils/100 WBC (Bld) 0.6 % . [facility] Eosinophils Auto (Bld) [#/Vo l]Ordered By: Sarai Mendez on 01-29-2023 Eosinophils (Bld) [#/Vol] 0.0 10*3/uL 0.0-0.45 [facility] Eosinophils/100 WBC Auto (Bl d)Ordered By: Sarai Mendez on 01-29-2023 Eosinophils/100 WBC (Bld) 0.4 % . [facility] Erythrocyte distribution wid th Auto (RBC) [Ratio]Ordered By: Sarai Mendez on 01-29-2023 Erythrocyte distribution width (RBC) [Ratio] 13.8 % 12.0-14.8 [facility] Hematocrit Auto (Bld) [Volum e fraction]Ordered By: Sarai Mendez on 01-29-2023 Hematocrit (Bld) [Volume fraction] 41.9 % 38.8-50.0 [facility] Hemoglobin [Mass/volume] in BloodOrdered By: Sarai Mendez on 01-29-2023 Hemoglobin (Bld) [Mass/Vol] 14.2 g/dL 13.0-17.0 [facility] Leukocytes [#/volume] correc collins for nucleated erythrocytes in Blood by Automated counOrdered By: Sarai Mendez on 01-29-2023 WBC corrected for nucl RBC Auto (Bld) [#/Vol] 11.9 10*3/uL 4.1-10.5 [facility] Lymphocytes Auto (Bld) [#/Vo l]Ordered By: Sarai Mendez on 01-29-2023 Lymphocytes (Bld) [#/Vol] 1.3 10*3/uL 1.00-4.8 [facility] Lymphocytes/100 WBC Auto (Bl d)Ordered By: Sarai Mendez on 01-29-2023 Lymphocytes/100 WBC (Bld) 10.5 % . [facility] MCH Auto (RBC) [Entitic mass ]Ordered By: Sarai Mendez on 01-29-2023 MCH (RBC) [Entitic mass] 35.8 pg 27.5-35.2 [facility] MCHC Auto (RBC) [Mass/Vol]Or dered By: Sarai Mendez on 01-29-2023 MCHC (RBC) [Mass/Vol] 33.8 g/dL 32.5-35.6 [facility] MCV Auto (RBC) [Entitic vol] Ordered By: Sarai Mendez on 01-29-2023 MCV (RBC) [Entitic vol] 105.8 fL 83.5-101 [facility] Monocytes Auto (Bld) [#/Vol] Ordered By: Sarai Mendez on 01-29-2023 Monocytes (Bld) [#/Vol] 0.6 10*3/uL 0.0-0.8 [facility] Monocytes/100 WBC Auto (Bld) Ordered By: Sarai Mendez on 01-29-2023 Monocytes/100 WBC (Bld) 5.3 % . [facility] Neutrophils Auto (Bld) [#/Vo l]Ordered By: Sarai Mendez on 01-29-2023 Neutrophils (Bld) [#/Vol] 9.9 10*3/uL 1.8-7.7 [facility] Neutrophils/100 WBC Auto (Bl d)Ordered By: Sarai Mendez on 01-29-2023 Neutrophils/100 WBC (Bld) 83.2 % . [facility] Nucleated erythrocytes [Pres ence] in Blood by Automated countOrdered By: Sarai Mendez on 01-29-2023 Nucleated RBC Auto Ql (Bld) 0.1 /100{WBC} 0-0.5 [facility] Platelet mean volume Auto (B ld) [Entitic vol]Ordered By: Sarai Mendez on 01-29-2023 Platelet mean volume (Bld) [Entitic vol] 8.4 fL 6.6-10.1 [facility] Platelets Auto (Bld) [#/Vol] Ordered By: Sarai Mendez on 01-29-2023 Platelets (Bld) [#/Vol] 187 10*3/uL 150-450 [facility] RBC Auto (Bld) [#/Vol]Ordere d By: Sarai Mendez on 01-29-2023 RBC (Bld) [#/Vol] 3.96 10*6/uL 3.90-5.60 [facility] WBC Auto (Bld) [#/Vol]Ordere d By: Sarai Mendez on 01-29-2023 WBC (Bld) [#/Vol] 11.9 10*3/uL 4.1-10.5 [facility] Bilirubin Test strip Ql (U)O rdered By: Sarai Mendez on 01-26-2023 Bilirubin Ql (U) Negative Negative [facility] Calcium [Mass/volume] in Ser um or PlasmaOrdered By: Sarai Mendez on 01-26-2023 Calcium [Mass/Vol] 9.3 mg/dL 8.6-10.[address] [facility] Carbon dioxide, total [Moles /volume] in Serum or PlasmaOrdered By: Sarai Mendez on 01-26-2023 CO2 [Moles/Vol] 28.7 mmol/L 21.0-31.0 [facility] Chloride [Moles/volume] in S ursula or PlasmaOrdered By: Sarai Mendez on 01-26-2023 Chloride [Moles/Vol] 101 mmol/L 98-107 [facility] Color Auto (U)Ordered By: Deborah Mendez on 01-26-2023 Color (U) Yellow Yellow [facility] Creatinine [Mass/volume] in Serum or PlasmaOrdered By: Sarai Mendez on 01-26-2023 Creatinine [Mass/Vol] 1.01 mg/dL 0.70-1.30 [facility] Fructosamine [Moles/volume] in Serum or PlasmaOrdered By: Sarai Mendez on 01-26-2023 Fructosamine [Moles/Vol] 192 umol/L 0-285 [facility] Comment on above: Published reference interval for apparently healthysubjects between age 20 and 60 is 205 - 285 umol/L and in apoorly controlled diabetic population is 228 - 563 umol/Lwith a mean of 396 umol/L.Performed at: [address] [id number] Director: Lucas Cooper PhD, Phone: [phone] Glucose [Mass/volume] in Ser um or PlasmaOrdered By: Sarai Mendez on 01-26-2023 Glucose [Mass/Vol] 126 mg/dL 70-[address] [facility] Comment on above: ADA recommended refe rence rangeRandom Glucose Reference Range is dependent on time and content of last meal. Glucose of more than 200 mg/dL in a nonstressed, ambulatory subject supports the diagnosis of Diabetes Mellitus. Ketones Auto test strip (U) [Mass/Vol]Ordered By: Sarai Mendez on 01-26-2023 Ketones (U) [Mass/Vol] Negative Negative [facility] Nitrite Test strip Ql (U)Ord ered By: Sarai Mendez on 01-26-2023 Nitrite Ql (U) Negative Negative [facility] No Panel InformationOrdered By: Sarai Mendez on 01-26-2023 Estimated GFR (CKD-EPI) > 60.0 mL/Min [facility] Creatinine Clearance (Chem N/A [facility] Potassium [Moles/volume] in Serum or PlasmaOrdered By: Sarai Mendez on 01-26-2023 Potassium [Moles/Vol] 4.2 mmol/L 3.5-5.1 [facility] Protein Auto test strip (U) [Mass/Vol]Ordered By: Sarai Mendez on 01-26-2023 Protein (U) [Mass/Vol] Negative Negative [facility] Serum or plasma anion gap de terminationOrdered By: Sarai Mendez on 01-26-2023 Anion gap [Moles/Vol] 10.5 mmol/L 6.0-15.0 [facility] Sodium [Moles/volume] in Ser um or PlasmaOrdered By: Sarai Mendez on 01-26-2023 Sodium [Moles/Vol] 136 mmol/L 136-[address] [facility] Specific gravity Auto test s trip (U) [Rel density]Ordered By: Sarai Mendez on 01-26-2023 Specific gravity (U) [Rel density] 1.019 1.001-1.03 0 [facility] Urea nitrogen [Mass/volume] in Serum or PlasmaOrdered By: Sarai Mendez on 01-26-2023 Urea nitrogen [Mass/Vol] 21 mg/dL 7-25 [facility] Urine clarity by refractomet ry automatedOrdered By: Sarai Mendez on 01-26-2023 Clarity Refractometry automated (U) Clear Clear [facility] Urine glucose measurement by automated test strip (mass/volume)Ordered By: Sarai Mendez on 01-26-2023 Glucose Auto test strip (U) [Mass/Vol] Normal mg/dL Normal [facility] Urine hemoglobin detection b y automated test stripOrdered By: Sarai Mendez on 01-26-2023 Hemoglobin Auto test strip Ql (U) Negative Negative [facility] Urine leukocyte esterase det ection by automated test stripOrdered By: Sarai Mendez on 01-26-2023 Leukocyte esterase Auto test strip Ql (U) Negative Negative [facility] Urobilinogen Auto test strip (U) [Mass/Vol]Ordered By: Sarai Mendez on 01-26-2023 Urobilinogen (U) [Mass/Vol] Normal mg/dL Normal [facility] pH Auto test strip (U)Ordere d By: Sarai Mendez on 01-26-2023 pH (U) 7.0 [pH] 5.0-9.0 [facility] CNPNon 01-10-2023 VICKIE Telephone (RADHA) ----- ESME STEVEN ([id number]) 1960 M Date Time Provider Department 01/10/23 HELADIO PINEDA During your visit today, we recorded the following information about you: Heladio Pineda MD 01/10/2023 5:20 PM Signed Please Call patient if [place] note not read to review results/released to My Chart if tests completed at F: Mildly Low vitamin D maybe associated with fatigue/joint/muscle pain. Start vitamin D 4000 International Units daily with food. Mildly Low vitamin b12- maybe associated with fatigue, may start over the counter vitamin [id number] daily by mouth or notify office if [...] rf<10, ccp<15, CHENCHO, hepatitis panel, quantiferon tb; Ruben Monterroso MA 01/11/2023 8:43 AM Signed Spoke to [...] [E53.8] Order(s):SED RATE WESTERGREN [SQWSR] Order #: [id number] FUTURE C-REACTIVE PROTEIN (CRP) [SQCRP] Order #: [id number] FUTURE VITAMIN D 25 HYDROXY [SQVITD] Order #: [id number] FUTURE VITAMIN B12 BLOOD [SQB12] Order #: [id number] FUTURE Prescriptions as of 01/11/2023 - albuterol [...] Status:Closed by RUBEN MONTERROSO on 01/11/[address] [facility] C-REACTIVE PROTEIN (CRP)on 0 01-06-2023 CRP [Mass/Vol] <0.9 mg/dL [facility] CK CREATINE KINASEon 023 CK [Catalytic activity/Vol] 35 U/L Low 51 - 298 U/L [facility] Comprehensive metabolic 2000 panelon 01-06-2023 Albumin [Mass/Vol] 4.9 g/dL 3.9 - 4.9 g/dL [facility] ALP [Catalytic activity/Vol] 57 U/L 38 - 113 U/L [facility] ALT [Catalytic activity/Vol] 27 U/L 10 - 54 U/L [facility] Anion gap [Moles/Vol] 15 mmol/L 9 - 18 mmol/L [facility] AST [Catalytic activity/Vol] 16 U/L 14 - 40 U/L [facility] Bilirubin [Mass/Vol] 0.7 mg/dL 0.2 - 1 .3 mg/dL [facility] Calcium [Mass/Vol] 10.3 mg/dL High 8.5 - 10. 2 mg/dL [place] [facility] [facility] Chloride [Moles/Vol] 98 mmol/L 97 - 10 5 mmol/L [facility] CO2 [Moles/Vol] 24 mmol/L 22 - 30 mmol/L [facility] Creatinine [Mass/Vol] 0.98 mg/dL 0.73 - 1.22 mg/dL [facility] Estimated Glomerular Filtration Rate 87 mL/min/1.73m >=60 mL/min/1.7 3m [facility] Glucose [Mass/Vol] 120 mg/dL High 74 - 99 mg/dL [facility] Potassium [Moles/Vol] 4.3 mmol/L 3.7 - 5.1 mmol/L [facility] Protein [Mass/Vol] 7.1 g/dL 6.3 - 8.0 g/dL [facility] Sodium [Moles/Vol] 137 mmol/L 136 - 144 mmol/L [facility] Urea nitrogen [Mass/Vol] 20 mg/dL 9 - 24 mg/dL [facility] RHEUMATOID FACTOR BLon 01-06 Rheumatoid factor Qn <16 IU/mL [facility] URIC ACID BLOODon 01-06-2023 Urate [Mass/Vol] 6.1 mg/dL 4.0 - 8.1 mg/dL [facility] VITAMIN B12 BLOODon 01-07-20 Cobalamin (Vitamin B12) [Mass/Vol] 343 pg/mL 232 - 1,245 pg/mL [facility] 25(OH)D3 SerPl-mCncon 2022 25-hydroxyvitamin D3 [Mass/Vol] 29.6 ng/mL Low 31.0-80.[address] [facility] Comment on above: Order Comment: Mil [place] Type: BLOOD SPECIMENOrdering Facility: [facility] Address: [address] [place] [address] Result Comment: Clas sification of 25 [place] Vitamin D status: Deficiency/Insufficiency: < or = 30 ng/ml. Sufficiency/Optimal Levels: 31-80 ng/mL Toxicity: > 100 ng/mL. Test performed by chemiluminescent immunoassay. Performed By: #### 1 989-3 ####[facility] LABIA [id number] [address] STATES OF [facility] [place] BY IFA WITH REFLEXon Nuclear Ab Ql (S) Negative Normal Negative [facility] Comment on above: Order Comment: Mil [place] Type: BLOOD SPECIMENOrdering Facility: [facility] Address: [address] [place] [address] Result Comment: Anti -nuclear antibody test is used as an aid in diagnosis of systemic autoimmune diseases. Where positive and clinically warranted, follow-up using disease-specific testing is recommended. Low positive titers are not uncommon with advanced age, certain chronic infections, and malignancies among others. Test methodology: Indirect fluorescence immunoassay (IFA) using HEp-2 cells. Performed By: #### A NAIFR ####[facility] LABIA [id number] [address] Aldolase SerPl-cCncon 2022 Aldolase [Catalytic activity/Vol] 6.1 mU/mL Normal 1.5-8.[address] [facility] Comment on above: Order Comment: Mil [place] Type: BLOOD SPECIMENOrdering Facility: [facility] Address: [address] [place] [address] Result Comment: This test was developed and its performance characteristics determined by [facility]'s [facility] Pathology and Laboratory Medicine [place] (RTPLMI). It has not been cleared or approved by the FDA. RT-PL[facility] is regulated under CLIA as qualified to perform high-complexity testing. This test is used for clinical purposes. It should not be regarded as investigational or for research. Performed By: #### 1 761-6 ####[facility] LABCLIA [id number] [address] BLOOD TB SCREENon 01-05-2023 M. tuberculosis tuberculin stim IFN-g Ql (Bld) Negative Normal [facility] Comment on above: Order Comment: Mil [facility] Type: BLOOD SPECIMENOrdering Facility: [facility] Address: [address] [place] [address] Performed By: #### I NFTBP ####[facility] LABIA [id number] [address] OF [facility] MITOGEN MINUS NIL >9.97 Normal >=0.50 [facility] Comment on above: Order Comment: Mil [facility] Type: BLOOD SPECIMENOrdering Facility: [facility] Address: [address] [place] [address] Performed By: #### I NFTBP ####[facility] LABIA [id number] [address] TB GAMMA INTERPRETATION Infection with M. tuberculosis complex is unlikely. If latent tuberculosis infection is highly suspected, a negative result does not rule out the infection. Specimens from immunocompromised patients and those <5 years of age may show false negative results. In case of a contact investigation, please repeat 8-12 weeks after a known exposure. Normal [facility] Comment on above: Order Comment: Speci men Type: BLOOD SPECIMENOrdering Facility: [facility] Address: [address] [place] [address] Performed By: #### I NFTBP ####[facility] LABCLIA [id number] [address] TB NIL 0.03 IU/mL Normal <=8.[address] [facility] Comment on above: Order Comment: Speci men Type: BLOOD SPECIMENOrdering Facility: [facility] Address: [address] [place] [address] Performed By: #### I NFTBP ####[facility] LABCLIA [id number] [address] [place] TB1 AG MINUS NIL 0.01 IU/mL Normal <0.35 [facility] Comment on above: Order Comment: Speci men Type: BLOOD SPECIMENOrdering Facility: [facility] Address: [address] [place] [address] Performed By: #### I NFTBP ####[facility] LABCLIA [id number] [address] [place] TB2 AG MINUS NIL 0.04 IU/mL Normal <0.35 [facility] Comment on above: Order Comment: Speci men Type: BLOOD SPECIMENOrdering Facility: [facility] Address: [address] [place], [place] [phone] Performed By: #### I NFTBP ####[facility] LABCLIA [id number] [place] [address] [facility] [place] CBC panel Auto (Bld)on 01-05 Erythrocyte distribution width (RBC) [Ratio] 12.9 % 11.5 - 15.0 % [facility] Hematocrit (Bld) [Volume fraction] 48.7 % 39.0 - 51.0 % [facility] Hemoglobin (Bld) [Mass/Vol] 16.3 g/dL 13.0 - 17.0 g/dL [facility] MCH (RBC) [Entitic mass] 35.6 pg High 26.0 - 34.0 pg [facility] MCHC (RBC) [Mass/Vol] 33.5 g/dL 30.5 - 36.0 g/dL [facility] MCV (RBC) [Entitic vol] 106.3 fL High 80.0 - 100.0 fL [facility] Nucleated RBC (Bld) [#/Vol] <0.01 k/uL [facility] Platelet mean volume (Bld) [Entitic vol] 10.7 fL 9.0 - 12.7 fL [facility] Platelets (Bld) [#/Vol] 207 10*3/uL 150 - 400 k/uL [facility] RBC (Bld) [#/Vol] 4.58 10*6/uL 4.20 - 6.00 m/uL [facility] WBC (Bld) [#/Vol] 12.21 10*3/uL High 3.70 - 11.00 k/uL [facility] Erythrocyte distribution width (RBC) [Ratio] 12.9 % Normal 11.5-15.[address] [facility] Comment on above: Order Comment: Speci men Type: BLOOD SPECIMENOrdering Facility: [facility] Address: [address] [place] [phone] Performed By: #### 4 537-7, 20663-5 ####[facility] LABIA [id number] [place] [address] [place] Hematocrit (Bld) [Volume fraction] 48.7 % Normal 39.0-51.[address] [facility] Comment on above: Order Comment: Speci men Type: BLOOD SPECIMENOrdering Facility: [facility] Address: [address] [place] [address] Performed By: #### 4 537-7, 17428-7 ####[facility] LABIA [id number] [place] [address] [place] Hemoglobin (Bld) [Mass/Vol] 16.3 g/dL Normal 13.0-17.[address] [facility] Comment on above: Order Comment: Speci men Type: BLOOD SPECIMENOrdering Facility: [facility] Address: [address] [place], [place] [phone] Performed By: #### 4 537-7, 99086-5 ####[facility] LABCLIA [id number] [address] [place] MCH (RBC) [Entitic mass] 35.6 pg High 26.0-34.[address] [facility] Comment on above: Order Comment: Speci men Type: BLOOD SPECIMENOrdering Facility: [facility] Address: [address] [place], [place] [address] Performed By: #### 4 537-7, 17923-4 ####[facility] LABCLIA [id number] [address] [place] MCHC (RBC) [Mass/Vol] 33.5 g/dL Normal 30.5-36.0 [facility] Comment on above: Order Comment: Speci men Type: BLOOD SPECIMENOrdering Facility: [facility] Address: [address] [place], [place] [address] Performed By: #### 4 537-7, 35684-3 ####[facility] LABIA [id number] [address] [place] MCV (RBC) [Entitic vol] 106.3 fL High 80.0-100.[address] [facility] Comment on above: Order Comment: Speci men Type: BLOOD SPECIMENOrdering Facility: [facility] Address: [address] [place], [place] [address] Performed By: #### 4 537-7, 60061-8 ####[facility] LABCLIA [id number] [address] [place] Nucleated RBC (Bld) [#/Vol] 10*3/uL Normal <0.[address] [facility] Comment on above: Order Comment: Speci men Type: BLOOD SPECIMENOrdering Facility: [facility] Address: [address] [place] [address] Performed By: #### 4 537-7, 12384-0 ####[facility] LABCLIA [id number] [place] [address] [place] Platelet mean volume (Bld) [Entitic vol] 10.7 fL Normal 9.0-12.[address] [facility] Comment on above: Order Comment: Speci men Type: BLOOD SPECIMENOrdering Facility: [facility] Address: [address] [place] [address] Performed By: #### 4 537-7, 57680-9 ####[facility] LABCLIA [id number] [place] [address] [place] Platelets (Bld) [#/Vol] 207 10*3/uL Normal 150-[address] [facility] Comment on above: Order Comment: Speci men Type: BLOOD SPECIMENOrdering Facility: [facility] Address: [address] [place] [address] Performed By: #### 4 537-7, 59858-2 ####[facility] LABCLIA [id number] [place] [address] [place] RBC (Bld) [#/Vol] 4.58 10*6/uL Normal 4.20-6.00 [facility] Comment on above: Order Comment: Speci men Type: BLOOD SPECIMENOrdering Facility: [facility] Address: [address] [place], [place] [address] Performed By: #### 4 537-7, 91892-7 ####[facility] LABIA [id number] [place] [address] [place] WBC (Bld) [#/Vol] 12.21 10*3/uL High 3.70-11.00 [facility] Comment on above: Order Comment: Speci men Type: BLOOD SPECIMENOrdering Facility: [facility] Address: [address] [place] [phone] Performed By: #### 4 537-7, 33870-6 ####[facility] LABCLIA [id number] [address] [place] CK SerPl-cCncon 01-05-2023 CK [Catalytic activity/Vol] 35 U/L Low 51-[address] [facility] Comment on above: Order Comment: Speci nicole Type: BLOOD SPECIMENOrdering Facility: [facility] Address: [address] [place] [phone] Performed By: #### 2 4323-8, 2132-9, 2157-6, 1987-08 ####[facility] LABCLIA [id number] [address] [place] CNOVon 01-05-2023 CNOV Office Visit (RADHA ) ----- ESME STEVEN ([id number]) 1960 Date Time Provider Department 01/05/23 11:00 AM [...] Brower DO Patient's Name: Esme Steven [address] [place] [address] Accompanied by: self This consult was requested for my medical opinion regarding the rheumatologic evaluation of the patient's joint pain problems, and my final recommendations will be communicated to the requesting health care provider by way of the shared medical record for internal providers or letter via the [employer] for external providers. January 05, [...] no Dactylitis: no H/o precedent/frequent infection(s): no Enthesopathy/[place]'s/he el/plantar tenderness: no Skin thickening, psoriasis, photosensitivity, purpura: no Nail changes: no Alpecia, patchy: no Eye inflammation: glasses SICCA: no Oral/nasal/genital ulcers: no GI problems-diarrhea/bleedin g/IBD/Gluten intolerence/Dysphagia: occasionally gerd Raynaud's phenomenon/digital ulcers: no Organ inv-Serositis: no Lung disease/ILD: no Myopathy/proximal muscle weakness: no Abnormal Urine or urethritis: no Renal/liver disease: as above CALL CENTER OPERATOR/PNS/sz/cva/cancer disease: no HEME-Cytopenias/LAD/Clots : no Fevers: no [...] KNEE ARTHROSCOPY/SURGERY (more content not included)... Normal [facility] CRP SerPl-mCncon 01-05-2023 CRP [Mass/Vol] mg/L Normal <0.[address] [facility] Comment on above: Order Comment: Speci men Type: BLOOD SPECIMENOrdering Facility: [facility] Address: [address] [place], [place] [phone] Performed By: #### 2 4323-8, 2131-12, 2156-09, 1987-08 ####[facility] LABCLIA [id number] [place] [id number] [place] [facility] Comprehensive metabolic 2000 panelon 01-05-2023 Albumin [Mass/Vol] 4.9 g/dL Normal 3.9-4.9 [facility] Comment on above: Order Comment: Speci men Type: BLOOD SPECIMENOrdering Facility: [facility] Address: [address] [place], [place] [phone] Performed By: #### 2 432-8, 2131-12, 2156-09, 1987-08 ####[facility] LABCLIA [id number] [place] [address] [place] ALP [Catalytic activity/Vol] 57 U/L Normal 38-[address] [facility] Comment on above: Order Comment: Speci men Type: BLOOD SPECIMENOrdering Facility: [facility] Address: [address] [place], [place] [phone] Performed By: #### 2 4323-8, 2131-12, 2156-09, 1987-08 ####[facility] LABCLIA [id number] [place] [id number] [facility] [place] ALT [Catalytic activity/Vol] 27 U/L Normal 10-[address] [facility] Comment on above: Order Comment: Speci men Type: BLOOD SPECIMENOrdering Facility: [facility] Address: [address] [place], [place] [address] Performed By: #### 2 4323, 2131-12, 2156-09, 1987-08 ####[facility] LABCLIA [id number] [place] [address] [place] Anion gap [Moles/Vol] 15 mmol/L Normal 9-18 [facility] Comment on above: Order Comment: Speci men Type: BLOOD SPECIMENOrdering Facility: [facility] Address: [address] [place], [place] [address] Performed By: #### 2 4322-11, 2131-12, 2156-09, 1987-08 ####[facility] LABCLIA [id number] [place] [address] [place] AST [Catalytic activity/Vol] 16 U/L Normal 14-[address] [facility] Comment on above: Order Comment: Speci men Type: BLOOD SPECIMENOrdering Facility: [facility] Address: [address] [place], [place] [address] Performed By: #### 2 4322-11, 2131-12, 2156-09, 1987-08 ####[facility] LABCLIA [id number] [place] [id number] [place] Bilirubin [Mass/Vol] 0.7 mg/dL Normal 0.2-1.3 [facility] Comment on above: Order Comment: Speci men Type: BLOOD SPECIMENOrdering Facility: [facility] Address: [address] [place], [place] [phone] Performed By: #### 2 4322-11, 2131-12, 2156-09, 1987-08 ####[facility] LABCLIA [id number] [place] [id number] [place] Calcium [Mass/Vol] 10.3 mg/dL High 8.5-10.2 [facility] Comment on above: Order Comment: Speci men Type: BLOOD SPECIMENOrdering Facility: [facility] Address: [address] [place], [place] [address] Performed By: #### 2 4322-11, 2131-12, 2156-09, 1987-08 ####[facility] LABCLIA [id number] [address] [address] [place] Chloride [Moles/Vol] 98 mmol/L Normal 97-105 [facility] Comment on above: Order Comment: Speci men Type: BLOOD SPECIMENOrdering Facility: [facility] Address: [address] [place], [place] [phone] Performed By: #### 2 8, 2131-12, 2156-09, 1987-08 ####[facility] LABCLIA [id number] [place] [address] [place] CO2 [Moles/Vol] 24 mmol/L Normal 22-[address] [facility] Comment on above: Order Comment: Speci men Type: BLOOD SPECIMENOrdering Facility: [facility] Address: [address] [place], [place] [phone] Performed By: #### 2 8, 2131-12, 2156-09, 1987-08 ####[facility] LABCLIA [id number] [place] [id number] [place] Creatinine [Mass/Vol] 0.98 mg/dL Normal 0.73-1.22 [facility] Comment on above: Order Comment: Speci men Type: BLOOD SPECIMENOrdering Facility: [facility] Address: [address] [place] [phone] Performed By: #### 2 8, 2131-12, 2156-09, 1987-08 ####[facility] LABCLIA [id number] [place] [id number] [place] Creatinine and Glomerular filtration rate.predicted panel (S/P/Bld) 87 mL/min/1.73m??? Normal >=[address] [facility] Comment on above: Order Comment: Speci men Type: BLOOD SPECIMENOrdering Facility: [facility] Address: [address] [place] [phone] Result Comment: Renee mated Glomerular Filtration Rate [...] reflect actual GFR. Performed By: #### 2 4323-8, 2131-12, 2156-09, 1987-08 ####[facility] LABCLIA [id number] [address] [address] [place] Glucose [Mass/Vol] 120 mg/dL High 74-99 [facility] Comment on above: Order Comment: Mil rivera Type: BLOOD SPECIMENOrdering Facility: [facility] Address: [address] [place] [address] Result Comment: The [place] Diabetes Association (ADA) provides guidance for cutoff [...] Standards of Medical Care in Diabetes 2016, [place] [employer]. Diabetes Care. 2016.39(Suppl 1). Performed By: #### 2 4323-8, 2131-12, 2156-09, 1987-08 ####[facility] LABIA [id number] [place] [id number] [place] Potassium [Moles/Vol] 4.3 mmol/L Normal 3.7-5.1 [facility] Comment on above: Order Comment: Specjulia rivera Type: BLOOD SPECIMENOrdering Facility: [facility] Address: [address] [place] [address] Performed By: #### 2 8, 2131-12, 2156-09, 1987-08 ####[facility] LABCLIA [id number] [address] [address] [place] Protein [Mass/Vol] 7.1 g/dL Normal 6.3-8.0 [facility] Comment on above: Order Comment: Speci men Type: BLOOD SPECIMENOrdering Facility: [facility] Address: [address] [place], [place] [address] Performed By: #### 2 432-8, 2131-12, 2156-09, 1987-08 ####[facility] LABIA [id number] [place] [address] [place] Sodium [Moles/Vol] 137 mmol/L Normal 136-144 [facility] Comment on above: Order Comment: Speci men Type: BLOOD SPECIMENOrdering Facility: [facility] Address: [address] [place], [place] [address] Performed By: #### 2 432-8, 2131-12, 2156-09, 1987-08 ####[facility] LABIA [id number] [place] [address] [place] Urea nitrogen [Mass/Vol] 20 mg/dL Normal 9-[address] [facility] Comment on above: Order Comment: Speci men Type: BLOOD SPECIMENOrdering Facility: [facility] Address: [address] [place], [place] [address] Performed By: #### 2 432-8, 2131-12, 2156-09, 1987-08 ####[facility] LABIA [id number] [place] [id number] [place] Cyclic citrullinated peptide IgG Qnon 01-05-2023 CCP ANTIBODY IGG QUALITATIVE Negative Normal Negative [facility] Comment on above: Order Comment: Speci men Type: BLOOD SPECIMENOrdering Facility: [facility] Address: [address] [place], [place] [phone] Performed By: #### 3 3935-8 ####[facility] LABIA [id number] [place] [address] [place] ESR Westergren method (Bld) [Velocity]on 01-05-2023 ESR (Bld) [Velocity] 2 mm/h 0 - 15 mm/hr [facility] ESR (Bld) [Velocity] 2 mm/h Normal 0-15 [facility] Comment on above: Order Comment: Speci men Type: BLOOD SPECIMENOrdering Facility: [facility] Address: [address] [place] [address] Performed By: #### 4 537-7, 15782-1 ####[facility] LABIA [id number] [place] [address] [place] HBV core Ab Ser Qlon 023 HBV core Ab Ql (S) Negative Normal Negative [facility] Comment on above: Order Comment: Speci men Type: BLOOD SPECIMENOrdering Facility: [facility] Address: [address] [place] [address] Result Comment: No e vidence of current or past infection with Hepatitis B virus. Should recent infection be suspected, repeat testing may be considered 3-4 weeks after this draw. Performed By: #### 1 6933-4, 5195-3, 30158-0 ####[facility] LABIA [id number] [place] [address] [place] HBV surface Ab Ql (S)on 12-09 HBV surface Ab Qn (S) <8.00 Normal [facility] Comment on above: Order Comment: Speci men Type: BLOOD SPECIMENOrdering Facility: [facility] Address: [address] [place] [address] Result Comment: <8 m IU/mL: No serological evidence of immunity to Hepatitis B Virus. >/= 8 to <12 mIU/mL: No serological evidence of immunity to Hepatitis B Virus. >/= 12 mIU/mL: Consistent with serological evidence of immunity to Hepatitis B Virus. Performed By: #### 1 6933-4, 5195-3, 68879-7 ####[facility] LABCLIA [id number] [address] [place] HBV surface Ab Ser Qlon 12-09 HBV surface Ab Ql (S) Negative Normal [facility] Comment on above: Order Comment: Speci men Type: BLOOD SPECIMENOrdering Facility: [facility] Address: [address] [place] [address] Result Comment: No s erological evidence of immunity to Hepatitis B Virus. Performed By: #### 1 6933-4, 5195-3, 66515-4 ####[facility] LABIA [id number] [address] [place] HBV surface Ag Ser Qlon 12-09 HBV surface Ag Ql (S) Negative Normal Negative [facility] Comment on above: Order Comment: Speci men Type: BLOOD SPECIMENOrdering Facility: [facility] Address: [address] [place] [address] Performed By: #### 1 6933-4, 5195-3, 93972-3 ####[facility] LABCLIA [id number] [address] HCV Ab Ser Qlon 01-05-2023 HCV Ab Ql (S) Negative Normal Negative [facility] Comment on above: Order Comment: Speci men Type: BLOOD SPECIMENOrdering Facility: [facility] Address: [address] [place] [address] Result Comment: The result suggests no evidence of active infection with Hepatitis C virus. Should recent infection be suspected, repeat testing may be considered 4-6 weeks after this draw. Performed By: #### 1 6128-1 ####[facility] LABIA [id number] [address] [place] Rheumatoid fact SerPl-aCncon 01-05-2023 Rheumatoid factor Qn [IU]/mL Normal <16 [facility] Comment on above: Order Comment: Speci men Type: BLOOD SPECIMENOrdering Facility: [facility] Address: [address] [place] [address] Performed By: #### 1 1572-5, 3084-1 ####[facility] LABCLIA [id number] [place] [address] [place] Urate SerPl-mCncon 3 Urate [Mass/Vol] 6.1 mg/dL Normal 4.0-8.1 [facility] Comment on above: Order Comment: Speci men Type: BLOOD SPECIMENOrdering Facility: [facility] Address: [address] [place] [address] Performed By: #### 1 157-5, 3084-1 ####[facility] LABCLIA [id number] [place] [address] [place] Vit B12 SerPl-mCncon 023 Cobalamin (Vitamin B12) [Mass/Vol] 343 pg/mL Normal 232-[address] [facility] Comment on above: Order Comment: Speci men Type: BLOOD SPECIMENOrdering Facility: [facility] Address: [address] [place] [address] Performed By: #### 2 4323-8, 2132-9, 2157-6, 1987- ####[facility] LABCLIA [id number] [place] [address] [place] cCP IgG SerPl-aCncon 023 Cyclic citrullinated peptide IgG Qn <15 Normal <[address] [facility] Comment on above: Order Comment: Speci men Type: BLOOD SPECIMENOrdering Facility: [facility] Address: [address] [place] [address] Performed By: #### 3 3935-8 ####[facility] LABCLIA [id number] [place] [address] [place] Albumin [Mass/volume] in Ser um or Plasma by Bromocresol green (BCG) dye binding methoOrdered By: Sarai Mendez on 11-13-2022 Albumin BCG dye [Mass/Vol] 4.3 g/dL 3.5-5.7 [facility] Glucose mean value [Mass/vol ume] in Blood Estimated from glycated hemoglobinOrdered By: Sarai Mendez on 11-13-2022 Average glucose Estimated from glycated hemoglobin (Bld) [Mass/Vol] 114 mg/dL [facility] Hemoglobin A1c percentageOrd ered By: Sarai Mendez on 11-13-2022 HbA1c (Bld) [Mass fraction] 5.6 % 4.3-5.6 [facility] Comment on above: Increased risk for d iabetes: 5.7 - 6.4diabetes: >6.4glycemic control for adults with diabetes: <7.0 Hemoglobin [Mass/volume] in BloodOrdered By: Sarai Mendez on 11-13-2022 Hemoglobin (Bld) [Mass/Vol] 14.7 g/dL 13.0-17.0 [facility] Vitamin D+Metabolites [Mass/ volume] in Serum or PlasmaOrdered By: Sarai Mendez on 11-13-2022 Vitamin D+Metabolites [Mass/Vol] 13.3 ng/mL 30-100 [facility] Comment on above: VITAMIN D STATUS 25( [place])VITAMIN D RANGE (ng/mL) Deficient <20 Insufficient 20 to <30Sufficient 30 to 100Reference: Ras MF,Tanika NC, Sergio DELGADILLO, et al. Evaluation,treatment, and prevention of vitamin D deficiency; an Endocrine Society clinical practice guideline. JCEM. 2010; 96(7):1911-30. Activated partial thrombopla stin time (aPTT) in platelet poor plasma by coagulation aOrdered By: Damien Holbrook on 10-11-2022 aPTT Coag (PPP) [Time] 24.5 s 25.1-36.5 [facility] Alanine aminotransferase [En zymatic activity/volume] in Serum or PlasmaOrdered By: Damien Holbrook on 10-11-2022 ALT [Catalytic activity/Vol] 37 U/L 7-52 [facility] Albumin [Mass/volume] in Ser um or Plasma by Bromocresol green (BCG) dye binding methoOrdered By: Damien Holbrook on 10-11-2022 Albumin BCG dye [Mass/Vol] 4.3 g/dL 3.5-5.7 [facility] Alkaline phosphatase [Enzyma tic activity/volume] in Serum or PlasmaOrdered By: Damien Holbrook on 10-11-2022 ALP [Catalytic activity/Vol] 51 U/L 34-104 [facility] Aspartate aminotransferase [ Enzymatic activity/volume] in Serum or PlasmaOrdered By: Damien Holbrook on 10-11-2022 AST [Catalytic activity/Vol] 26 U/L 13-39 [facility] Automated erythrocytes count in urine sediment (number/area)Ordered By: Damien Holbrook on 10-11-2022 RBC Auto (Urine sed) [#/Area] 3-4 [HPF] 0-4 [facility] Automated leukocytes count i n urine sediment (number/area)Ordered By: Damien Holbrook on 10-11-2022 WBC Auto (Urine sed) [#/Area] 3-4 [HPF] 0-4 [facility] Automated urine hyaline cast s count (number/volume)Ordered By: Damien Holbrook on 10-11-2022 Hyaline casts Auto (U) [#/Vol] 20-49 [LPF] 0-1 [facility] Basophils Auto (Bld) [#/Vol] Ordered By: Damien Holbrook on 10-11-2022 Basophils (Bld) [#/Vol] 0.1 10*3/uL 0.0-0.2 [facility] Basophils/100 WBC Auto (Bld) Ordered By: Damien Holbrook on 10-11-2022 Basophils/100 WBC (Bld) 1.1 % . [facility] Bilirubin Test strip Ql (U)O rdered By: Damien Holbrook on 10-11-2022 Bilirubin Ql (U) 1+ Negative [facility] Bilirubin.total [Mass/volume ] in Serum or PlasmaOrdered By: Damien Holbrook 10-11-2022 Bilirubin [Mass/Vol] 1.0 mg/dL 0.3-1.0 [facility] Calcium [Mass/volume] in Ser um or PlasmaOrdered By: Damien Holbrook on 10-11-2022 Calcium [Mass/Vol] 9.7 mg/dL 8.6-10.[address] [facility] Carbon dioxide, total [Moles /volume] in Serum or PlasmaOrdered By: Damien Holbrook on 10-11-2022 CO2 [Moles/Vol] 27.5 mmol/L 21.0-31.0 [facility] Chloride [Moles/volume] in S ursula or PlasmaOrdered By: Damien Holbrook on 10-11-2022 Chloride [Moles/Vol] 101 mmol/L 98-107 [facility] Color Auto (U)Ordered By: Gregor Holbrook on 10-11-2022 Color (U) Dark yellow Yellow [facility] Creatinine [Mass/volume] in Serum or PlasmaOrdered By: Damien Holbrook on 10-11-2022 Creatinine [Mass/Vol] 1.25 mg/dL 0.70-1.30 [facility] Eosinophils Auto (Bld) [#/Vo l]Ordered By: Damien Holbrook on 10-11-2022 Eosinophils (Bld) [#/Vol] 0.0 10*3/uL 0.0-0.45 [facility] Eosinophils/100 WBC Auto (Bl d)Ordered By: Damien Holbrook on 10-11-2022 Eosinophils/100 WBC (Bld) 0.4 % . [facility] Erythrocyte distribution wid th Auto (RBC) [Ratio]Ordered By: Damien Holbrook on 10-11-2022 Erythrocyte distribution width (RBC) [Ratio] 14.4 % 12.0-14.8 [facility] Globulin Calc (S) [Mass/Vol] Ordered By: Damien Holbrook on 10-11-2022 Globulin (S) [Mass/Vol] 2.8 g/dL [facility] Glucose [Mass/volume] in Ser um or PlasmaOrdered By: Damien Holbrook on 10-11-2022 Glucose [Mass/Vol] 128 mg/dL 70-[address] [facility] Comment on above: ADA recommended refe rence rangeRandom Glucose Reference Range is dependent on time and content of last meal. Glucose of more than 200 mg/dL in a nonstressed, ambulatory subject supports the diagnosis of Diabetes Mellitus. Hematocrit Auto (Bld) [Volum e fraction]Ordered By: Damien Holbrook on 10-11-2022 Hematocrit (Bld) [Volume fraction] 45.3 % 38.8-50.0 [facility] Hemoglobin [Mass/volume] in BloodOrdered By: Damien Holbrook on 10-11-2022 Hemoglobin (Bld) [Mass/Vol] 15.5 g/dL 13.0-17.0 [facility] Ketones Auto test strip (U) [Mass/Vol]Ordered By: Damien Holbrook on 10-11-2022 Ketones (U) [Mass/Vol] Trace Negative [facility] - CoagulationOrde red By: Damien Holbrook on 10-11-2022 PT Coag (PPP) [Time] 11.8 s 9.0-12.9 [facility] Leukocytes [#/volume] correc collins for nucleated erythrocytes in Blood by Automated counOrdered By: Damien Holbrook on 10-11-2022 WBC corrected for nucl RBC Auto (Bld) [#/Vol] 11.9 10*3/uL 4.1-10.5 [facility] Lymphocytes Auto (Bld) [#/Vo l]Ordered By: Damien Holbrook on 10-11-2022 Lymphocytes (Bld) [#/Vol] 1.5 10*3/uL 1.00-4.8 [facility] Lymphocytes/100 WBC Auto (Bl d)Ordered By: Damien Holbrook on 10-11-2022 Lymphocytes/100 WBC (Bld) 13.0 % . [facility] MCH Auto (RBC) [Entitic mass ]Ordered By: Damien Holbrook on 10-11-2022 MCH (RBC) [Entitic mass] 35.3 pg 27.5-35.2 [facility] MCHC Auto (RBC) [Mass/Vol]Or dered By: Damien Holbrook on 10-11-2022 MCHC (RBC) [Mass/Vol] 34.2 g/dL 32.5-35.6 [facility] MCV Auto (RBC) [Entitic vol] Ordered By: Damien Holbrook on 10-11-2022 MCV (RBC) [Entitic vol] 103.4 fL 83.5-101 [facility] Magnesium [Mass/volume] in S ursula or PlasmaOrdered By: Damien Holbrook on 10-11-2022 Magnesium [Mass/Vol] 1.6 mg/dL 1.9-2.7 [facility] Monocyte distribution width [Entitic volume] in Blood by AutomatedOrdered By: Damien Holbrook on 10-11-2022 Monocyte distribution width Auto (Bld) [Entitic vol] 21.21 % 0.00-20.00 [facility] Comment on above: For adults in ED, MD W > 20.0 may be associated with a higher risk of sepsis during the first 12 hrs of hospital admission Monocytes Auto (Bld) [#/Vol] Ordered By: Damien Holbrook on 10-11-2022 Monocytes (Bld) [#/Vol] 1.1 10*3/uL 0.0-0.8 [facility] Monocytes/100 WBC Auto (Bld) Ordered By: Damien Holbrook on 10-11-2022 Monocytes/100 WBC (Bld) 9.1 % . [facility] Natriuretic peptide B [Mass/ Vol]Ordered By: Damien Holbrook on 10-11-2022 Natriuretic peptide B (Bld) [Mass/Vol] 206.0 pg/mL 5-100 [facility] Neutrophils Auto (Bld) [#/Vo l]Ordered By: Damien Holbrook on 10-11-2022 Neutrophils (Bld) [#/Vol] 9.1 10*3/uL 1.8-7.7 [facility] Neutrophils/100 WBC Auto (Bl d)Ordered By: Damien Holbrook on 10-11-2022 Neutrophils/100 WBC (Bld) 76.4 % . [facility] Nitrite Test strip Ql (U)Ord ered By: Damien Holbrook on 10-11-2022 Nitrite Ql (U) Negative Negative [facility] No Panel InformationOrdered By: Damien Holbrook on 10-11-2022 Estimated GFR (CKD-EPI) > 60.0 mL/Min [facility] Creatinine Clearance (Chem N/A [facility] Nucleated erythrocytes [Pres ence] in Blood by Automated countOrdered By: Damien Holbrook on 10-11-2022 Nucleated RBC Auto Ql (Bld) 0.1 /100{WBC} 0-0.5 [facility] Platelet mean volume Auto (B ld) [Entitic vol]Ordered By: Damien Holbrook on 10-11-2022 Platelet mean volume (Bld) [Entitic vol] 8.6 fL 6.6-10.1 [facility] Platelet poor plasma interna tional normalized ratio (INR) by coagulation assay (relatOrdered By: Damien Holbrook on 10-11-2022 INR Coag (PPP) [Relative time] 1.0 {INR} [facility] Comment on above: INR Therapeutic Rang e A) Pre- and Peroperative OAT started two weeks before surgery. NOT HIP SURGERY: 1.5 - 2.5 HIP SURGERY: 2 - 3B) Primary and secondary prevention of venous THROMBOSIS: 2 - 3C) Active venous thrombosis, pulmonary embolismand prevention of recurrent venous thrombosis: 2 - 3D) Prevention of arterial thromboembolismincluding patients with mechanical heart valves: 3 - 4.5 Platelets Auto (Bld) [#/Vol] Ordered By: Damien Holbrook on 10-11-2022 Platelets (Bld) [#/Vol] 197 10*3/uL 150-450 [facility] Potassium [Moles/volume] in Serum or PlasmaOrdered By: Damien Holbrook on 10-11-2022 Potassium [Moles/Vol] 4.0 mmol/L 3.5-5.1 [facility] Protein Auto test strip (U) [Mass/Vol]Ordered By: Damien Holbrook on 10-11-2022 Protein (U) [Mass/Vol] 100 mg/dL Negative [facility] Protein [Mass/volume] in Ser um or PlasmaOrdered By: Damien Holbrook on 10-11-2022 Protein [Mass/Vol] 7.1 g/dL 6.4-8.[address] [facility] RBC Auto (Bld) [#/Vol]Ordere d By: Damien Holbrook on 10-11-2022 RBC (Bld) [#/Vol] 4.38 10*6/uL 3.90-5.60 [facility] Serum or plasma albumin/glob ulin mass ratioOrdered By: Damien Holbrook on 10-11-2022 Albumin/Globulin [Mass ratio] 1.5 {ratio} [facility] Serum or plasma anion gap de terminationOrdered By: Damien Holbrook on 10-11-2022 Anion gap [Moles/Vol] 12.5 mmol/L 6.0-15.0 [facility] Sodium [Moles/volume] in Ser um or PlasmaOrdered By: Damien Holbrook on 10-11-2022 Sodium [Moles/Vol] 137 mmol/L 136-[address] [facility] Specific gravity Auto test s trip (U) [Rel density]Ordered By: Damien Holbrook on 10-11-2022 Specific gravity (U) [Rel density] 1.027 1.001-1.03 0 [facility] Squamous epithelial cells de tection in urine sediment by light microscopyOrdered By: Damien Holbrook on 10-11-2022 Epithelial cells.squamous LM Ql (Urine sed) 0-1 [HPF] 0-2 [facility] Troponin I.cardiac [Mass/vol ume] in Serum or Plasma by Detection limit <= 0.01 ng/Ordered By: Damien Holbrook on 10-11-2022 Troponin I.cardiac DL <= 0.01 ng/mL [Mass/Vol] 17.7 pg/mL 0.0-20.0 [facility] Urea nitrogen [Mass/volume] in Serum or PlasmaOrdered By: Damien Holbrook on 10-11-2022 Urea nitrogen [Mass/Vol] 19 mg/dL 7-25 [facility] Urine bacteria detection by automated methodOrdered By: Damien Holbrook on 10-11-2022 Bacteria Auto Ql (U) None seen None Seen [facility] Urine clarity by refractomet ry automatedOrdered By: Damien Holbrook on 10-11-2022 Clarity Refractometry automated (U) Cloudy Clear [facility] Urine glucose measurement by automated test strip (mass/volume)Ordered By: Damien Holbrook on 10-11-2022 Glucose Auto test strip (U) [Mass/Vol] Normal mg/dL Normal [facility] Urine hemoglobin detection b y automated test stripOrdered By: Damien Holbrook on 10-11-2022 Hemoglobin Auto test strip Ql (U) Negative Negative [facility] Urine leukocyte esterase det ection by automated test stripOrdered By: Damien Holbrook on 10-11-2022 Leukocyte esterase Auto test strip Ql (U) 1+ Negative [facility] Urobilinogen Auto test strip (U) [Mass/Vol]Ordered By: Damien Holbrook on 10-11-2022 Urobilinogen (U) [Mass/Vol] Normal mg/dL Normal [facility] WBC Auto (Bld) [#/Vol]Ordere d By: Damien Holbrook on 10-11-2022 WBC (Bld) [#/Vol] 11.9 10*3/uL 4.1-10.5 [facility] pH Auto test strip (U)Ordere d By: Damien Holbrook on 10-11-2022 pH (U) 5.5 [pH] 5.0-9.0 [facility] Automated erythrocytes count in urine sediment (number/area)Ordered By: Saria Georges on 10-02-2022 RBC Auto (Urine sed) [#/Area] 1-2 [HPF] 0-4 [facility] Automated leukocytes count i n urine sediment (number/area)Ordered By: Sarai Georges on 10-02-2022 WBC Auto (Urine sed) [#/Area] None seen [HPF] 0-4 [facility] Basophils Auto (Bld) [#/Vol] Ordered By: Sarai Georges on 10-02-2022 Basophils (Bld) [#/Vol] 0.1 10*3/uL 0.0-0.2 [facility] Basophils/100 WBC Auto (Bld) Ordered By: Sarai Georges on 10-02-2022 Basophils/100 WBC (Bld) 0.6 % . [facility] Bilirubin Auto test strip Ql (U)Ordered By: Sarai Georges on 10-02-2022 Bilirubin Ql (U) Negative Negative [facility] C reactive protein [Mass/vol ume] in Serum or PlasmaOrdered By: Sarai Georges on 10-02-2022 CRP [Mass/Vol] 0.5 mg/dL 0.0-0.5 [facility] Creatine kinase [Enzymatic a ctivity/volume] in Serum or PlasmaOrdered By: Sarai Georges on 10-02-2022 CK [Catalytic activity/Vol] 52 U/L 30-223 [facility] Creatinine [Mass/volume] in Serum or PlasmaOrdered By: Sarai Georges on 10-02-2022 Creatinine [Mass/Vol] 1.00 mg/dL 0.70-1.30 [facility] DNA double strand Ab [Units/ volume] in SerumOrdered By: Sarai Georges on 10-02-2022 DNA double strand Ab Qn (S) [IU]/mL 0-9 [facility] Comment on above: Negative <5 Equivoca l 5 - 9 Positive >9Performed at: - [facility] [id number] Director: Lucas Copoer PhD, Phone: [phone] Eosinophils Auto (Bld) [#/Vo l]Ordered By: Sarai Georges on 10-02-2022 Eosinophils (Bld) [#/Vol] 0.0 10*3/uL 0.0-0.45 [facility] Eosinophils/100 WBC Auto (Bl d)Ordered By: Sarai Georges on 10-02-2022 Eosinophils/100 WBC (Bld) 0.5 % . [facility] Erythrocyte distribution wid th Auto (RBC) [Ratio]Ordered By: Sarai Georges on 10-02-2022 Erythrocyte distribution width (RBC) [Ratio] 14.9 % 12.0-14.8 [facility] Erythrocyte sedimentation ra te by Photometric methodOrdered By: Sarai Georges on 10-02-2022 ESR Photometric method (Bld) [Velocity] 16 mm/hr 0-19 [facility] Hematocrit Auto (Bld) [Volum e fraction]Ordered By: Sarai Georges on 10-02-2022 Hematocrit (Bld) [Volume fraction] 41.2 % 38.8-50.0 [facility] Hemoglobin [Mass/volume] in BloodOrdered By: Sarai Georges on 10-02-2022 Hemoglobin (Bld) [Mass/Vol] 14.0 g/dL 13.0-17.0 [facility] Ketones Auto test strip (U) [Mass/Vol]Ordered By: Sarai Georges on 10-02-2022 Ketones (U) [Mass/Vol] Negative Negative [facility] - UrinalysisOrder ed By: Sarai Georges on 10-02-2022 Hyaline casts LM Ql (Urine sed) 0-8 [LPF] 0-8 [facility] Leukocytes [#/volume] correc collins for nucleated erythrocytes in Blood by Automated counOrdered By: Sarai Georges on 10-02-2022 WBC corrected for nucl RBC Auto (Bld) [#/Vol] 9.5 10*3/uL 4.1-10.5 [facility] Lymphocytes Auto (Bld) [#/Vo l]Ordered By: Sarai Georges on 10-02-2022 Lymphocytes (Bld) [#/Vol] 1.7 10*3/uL 1.00-4.8 [facility] Lymphocytes/100 WBC Auto (Bl d)Ordered By: Sarai Georges on 10-02-2022 Lymphocytes/100 WBC (Bld) 18.5 % . [facility] MCH Auto (RBC) [Entitic mass ]Ordered By: Saria Georges on 10-02-2022 MCH (RBC) [Entitic mass] 35.4 pg 27.5-35.2 [facility] MCHC Auto (RBC) [Mass/Vol]Or dered By: Sarai Georges on 10-02-2022 MCHC (RBC) [Mass/Vol] 33.9 g/dL 32.5-35.6 [facility] MCV Auto (RBC) [Entitic vol] Ordered By: Sarai Georges on 10-02-2022 MCV (RBC) [Entitic vol] 104.5 fL 83.5-101 [facility] Monocytes Auto (Bld) [#/Vol] Ordered By: Sarai Georges on 10-02-2022 Monocytes (Bld) [#/Vol] 0.7 10*3/uL 0.0-0.8 [facility] Monocytes/100 WBC Auto (Bld) Ordered By: Sarai Georges on 10-02-2022 Monocytes/100 WBC (Bld) 7.2 % . [facility] Neutrophils Auto (Bld) [#/Vo l]Ordered By: Sarai Georges on 10-02-2022 Neutrophils (Bld) [#/Vol] 6.9 10*3/uL 1.8-7.7 [facility] Neutrophils/100 WBC Auto (Bl d)Ordered By: Sarai Georges on 10-02-2022 Neutrophils/100 WBC (Bld) 73.2 % . [facility] No Panel InformationOrdered By: Sarai Georges on 10-02-2022 Estimated GFR (CKD-EPI) > 60.0 mL/Min [facility] Creatinine Clearance (Chem N/A [facility] Total Complement (CH50) >60 U/mL >41 [facility] Comment on above: Age Male Female 1 [...] to determine out of range values.Performed at: [facility] [id number] Director: Lucas Cooper PhD, Phone: [phone] Nucleated erythrocytes [Pres ence] in Blood by Automated countOrdered By: Sarai Georges on 10-02-2022 Nucleated RBC Auto Ql (Bld) 0.1 /100{WBC} 0-0.5 [facility] Platelet mean volume Auto (B ld) [Entitic vol]Ordered By: Sarai Georges on 10-02-2022 Platelet mean volume (Bld) [Entitic vol] 8.9 fL 6.6-10.1 [facility] Platelets Auto (Bld) [#/Vol] Ordered By: Sarai Georges on 10-02-2022 Platelets (Bld) [#/Vol] 201 10*3/uL 150-450 [facility] Protein Auto test strip (U) [Mass/Vol]Ordered By: Sarai Georges on 10-02-2022 Protein (U) [Mass/Vol] Negative Negative [facility] RBC Auto (Bld) [#/Vol]Ordere d By: Sarai Georges on 10-02-2022 RBC (Bld) [#/Vol] 3.94 10*6/uL 3.90-5.60 [facility] Serum Corona extractable nucl ear antigen (OPAL) antibody assay (units/volume)Ordered By: Sarai Georges on 10-02-2022 Corona extractable nuclear Ab Qn (S) <0.2 AI 0.0-0.9 [facility] Serum or plasma complement C 3 measurement (mass/volume)Ordered By: Sarai Georges on 10-02-2022 Complement C3 [Mass/Vol] 147 mg/dL 82-167 [facility] Comment on above: Performed at: [address] [id number] Director: Lucas Cooper PhD, Phone: [phone] Serum or plasma complement C 4 measurement (mass/volume)Ordered By: Sarai Georges on 10-02-2022 Complement C4 [Mass/Vol] 29 mg/dL 12-38 [facility] Squamous epithelial cells de tection in urine sediment by light microscopyOrdered By: Sarai Georges on 10-02-2022 Epithelial cells.squamous LM Ql (Urine sed) None seen [HPF] 0-2 [facility] Urine appearanceOrdered By: Sarai Georges on 10-02-2022 Appearance (U) Clear Clear [facility] Urine bacteria detection by automated methodOrdered By: Sarai Georges on 10-02-2022 Bacteria Auto Ql (U) None seen None Seen [facility] Urine colorOrdered By: Tyler Georges on 10-02-2022 Color (U) Yellow Yellow [facility] Urine glucose measurement by automated test strip (mass/volume)Ordered By: Sarai Georges on 10-02-2022 Glucose Auto test strip (U) [Mass/Vol] Normal mg/dL Normal [facility] Urine hemoglobin detection b y automated test stripOrdered By: Sarai Georges on 10-02-2022 Hemoglobin Auto test strip Ql (U) Negative Negative [facility] Urine leukocyte esterase det ection by automated test stripOrdered By: Sarai Georges on 10-02-2022 Leukocyte esterase Auto test strip Ql (U) Negative Negative [facility] Urine nitrite detection by a utomated test stripOrdered By: Sarai Georges on 10-02-2022 Nitrite Auto test strip Ql (U) Negative Negative [facility] Urobilinogen Auto test strip (U) [Mass/Vol]Ordered By: Sarai Georges on 10-02-2022 Urobilinogen (U) [Mass/Vol] Normal mg/dL Normal [facility] WBC Auto (Bld) [#/Vol]Ordere d By: Sarai Georges on 10-02-2022 WBC (Bld) [#/Vol] 9.5 10*3/uL 4.1-10.[address] [facility] pH Auto test strip (U)Ordere d By: Saria Georges on 10-02-2022 pH (U) 1.015 [pH] 1.001-1.03 0 [facility] pH (U) 6.5 [pH] 5.0-9.0 [facility] RETICULOCYTEon 07-31-2022 RETIC 3.90 % Critically high 0.60-3.10 [facility] Comment on above: Performed By: #### R ETIC #### [facility] [address] [place] [address] Dr. Tracy Hubbard VIT B12 AND FOLATEon 023 Cobalamin (Vitamin B12) [Mass/Vol] 436.0 pg/mL Normal 193.0-986. 0 [facility] Comment on above: Performed By: #### B 12FOL #### [facility] [address] [place] [address] Dr. Tracy Hubbard FOLATE 17.10 ng/mL Normal 8.60-58.90 [facility] Comment on above: Performed By: #### B 12FOL #### [facility] [address] [place] [address] Dr. Tracy Hubbard CBC AUTO DIFFon 07-29-2022 BASO # 0.1 103/ul Normal 0.0-0.1 [facility] Comment on above: Performed By: #### C BC #### [facility] [address] [place] [address] Dr. Tracy Hubbard Basophils/100 WBC (Bld) 0.7 % Normal 0.2-2.0 [facility] Comment on above: Performed By: #### C BC #### [facility] [address] [place] [address] Dr. Tracy Hubbard EO # 0.1 103/ul Normal 0.0-0.7 [facility] Comment on above: Performed By: #### C BC #### [facility] [address] [place] [address] Dr. Tracy Hubbard Eosinophils/100 WBC (Bld) 1.7 % Normal 0.9-7.0 [facility] Comment on above: Performed By: #### C BC #### [facility] [address] [place] [address] Dr. Tracy Hubbard Erythrocyte distribution width (RBC) [Ratio] 12.8 % Normal 11.0-15.0 [facility] Comment on above: Performed By: #### C BC #### [facility] [address] [place] [address] Dr. Tracy Hubbard Hematocrit (Bld) [Volume fraction] 44.6 % Normal 42.0-54.0 [facility] Comment on above: Performed By: #### C BC #### [facility] [address] [place] [address] Dr. Tracy Hubbard Hemoglobin (Bld) [Mass/Vol] 15.5 g/dL Normal 14.0-18.0 [facility] Comment on above: Performed By: #### C BC #### [facility] [address] [place] [address] Dr. Tracy Hubbard IG # 0.03 10e3/ul Normal 0.00-0.03 [facility] Comment on above: Performed By: #### C BC #### [facility] [address] [place] [address] Dr. Tracy Hubbard IG % 0.4 % Normal 0.0-0.5 [facility] Comment on above: Performed By: #### C BC #### [facility] [address] [place] [address] Dr. Tracy Hubbard LYMPH # 1.7 103/ul Normal 1.2-3.8 [facility] Comment on above: Performed By: #### C BC #### [facility] [address] [place] [address] Dr. Tracy Hubbard Lymphocytes/100 WBC (Bld) 24.8 % Normal 20.5-60.0 [facility] Comment on above: Performed By: #### C BC #### [facility] [address] [place] [address] Dr. Tracy Hubbard MANUAL DIFF REQ NO Normal [facility] Comment on above: Performed By: #### C BC #### [facility] [address] [place] [address] Dr. Tracy Hubbard MCH (RBC) [Entitic mass] 35.7 pg Critically high 25.9-34.0 [facility] Comment on above: Performed By: #### C BC #### [facility] [address] [place] [address] Dr. Tracy Hubbard MCHC (RBC) [Mass/Vol] 34.8 g/dL Normal 29.9-35.2 [facility] Comment on above: Performed By: #### C BC #### [facility] [address] [place] [address] Dr. Tracy Hubbard MCV (RBC) [Entitic vol] 102.8 fL Critically high 80.0-94.0 [facility] Comment on above: Performed By: #### C BC #### [facility] [address] [place] [address] Dr. Tracy Hubbard MONO # 0.7 103/ul Normal 0.3-0.8 [facility] Comment on above: Performed By: #### C BC #### [facility] [address] [place] [address] Dr. Tracy Hubbard Monocytes/100 WBC (Bld) 9.8 % Normal 1.7-12.0 [facility] Comment on above: Performed By: #### C BC #### [facility] [address] [place] [address] Dr. Tracy Hubbard NEUT # 4.4 103/ul Normal 1.4-6.5 [facility] Comment on above: Performed By: #### C BC #### [facility] [address] [place] [address] Dr. Tracy Hubbard Neutrophils/100 WBC (Bld) 62.6 % Normal 43.0-75.0 [facility] Comment on above: Performed By: #### C BC #### [facility] [address] [place] [address] Dr. Tracy Hubbard Platelet mean volume (Bld) [Entitic vol] 10.3 fL Normal 9.5-13.5 [facility] Comment on above: Performed By: #### C BC #### [facility] [address] [place] [address] Dr. Tracy Hubbard PLT 182 103/ul Normal 150-450 [facility] Comment on above: Performed By: #### C BC #### [facility] [address] [place] [address] Dr. Tracy Hubbard RBC 4.34 106/ul Critically low 4.70-6.10 [facility] Comment on above: Performed By: #### C BC #### [facility] [address] [place] [address] Dr. Tracy Hubbard WBC 7.0 103/ul Normal 4.0-11.0 [facility] Comment on above: Performed By: #### C BC #### [facility] [address] [place] [address] Dr. Tracy Hubbard CPKon 07-29-2022 CK [Catalytic activity/Vol] 84 U/L Normal 39-308 [facility] Comment on above: Performed By: #### C MP, CRP, TSH, LIPID, CK #### [facility] [address] [place] [address] Dr. Tracy Hubbard CRPon 07-29-2022 CRP [Mass/Vol] mg/L Normal <=1.0 [facility] Comment on above: Performed By: #### C MP, CRP, TSH, LIPID, CK #### [facility] [address] [place] [address] Dr. Tracy Hubbard LIPID PROFILEon 07-29-2022 CHOL-HDL RATIO NORM SEE BELOW Normal [facility] Comment on above: Result Comment: 3.3 - 4.4 LOW RISK 4.4 - 7.1 AVERAGE RISK 7.1 - 11.0 MODERATE RISK >11.0 HIGH RISK Performed By: #### C MP, CRP, TSH, LIPID, CK #### [facility] [address] [address] [address] Tracy Hubbard Cholesterol [Mass/Vol] 145 mg/dL Normal <=200 Th e [facility] Comment on above: Performed By: #### C MP, CRP, TSH, LIPID, CK #### [facility] [address] [address] [address] Tracy Hubbard Cholesterol in HDL [Mass/Vol] 45 mg/dL Normal 40-60 [facility] Comment on above: Performed By: #### C MP, CRP, TSH, LIPID, CK #### [facility] [address] [place] [address] Dr. Tracy Hubbard Cholesterol in LDL [Mass/Vol] 64.4 mg/dL Normal [facility] Comment on above: Performed By: #### C MP, CRP, TSH, LIPID, CK #### [facility] [address] [place] [address] Dr. Tracy Hubbard Cholesterol.total/Chol esterol in HDL [Mass ratio] 3.2 {ratio} Normal [facility] Comment on above: Performed By: #### C MP, CRP, TSH, LIPID, CK #### [facility] [address] [place] [address] Dr. Tracy Hubbard HDL NORMAL > or = 60 mg/dl - LO W CARDIOVASCULAR RISK <40 mg/dl - HIGH CARDIOVASCULAR RISK Normal [facility] Comment on above: Performed By: #### C MP, CRP, TSH, LIPID, CK #### [facility] [address] [place] [address] Dr. Tracy Hubbard LDL CALC NORMAL SEE BELOW Normal [facility] Comment on above: Result Comment: <100 mg/dl OPTIMAL 100 - 129 mg/dl NEAR OR ABOVE OPTIMAL 130 - 159 mg/dl BORDERLINE HIGH 160 - 189 mg/dl HIGH >190 mg/dl VERY HIGH Performed By: #### C MP, CRP, TSH, LIPID, CK #### [facility] [address] [place] [address] Dr. Tracy Hubbard Triglyceride [Mass/Vol] 178 mg/dL Critically high <=150 [facility] Comment on above: Performed By: #### C MP, CRP, TSH, LIPID, CK #### [facility] [address] [address] [address] Tracy Hubbard VLDL CALC 35.6 mg/dL Normal [facility] Comment on above: Performed By: #### C MP, CRP, TSH, LIPID, CK #### [facility] [address] [address] [address] Tracy Hubbard PROF 14(COMP METB)on 023 Albumin [Mass/Vol] 4.1 g/dL Normal 3.4-5.0 [facility] Comment on above: Performed By: #### C MP, CRP, TSH, LIPID, CK #### [facility] [address] [place] [address] Dr. Tracy Hubbard Albumin/Globulin [Mass ratio] 1.2 {ratio} Normal [facility] Comment on above: Performed By: #### C MP, CRP, TSH, LIPID, CK #### [facility] [address] [place] [address] Dr. Tracy Hubbard ALP [Catalytic activity/Vol] 66 U/L Normal 46-116 [facility] Comment on above: Performed By: #### C MP, CRP, TSH, LIPID, CK #### [facility] [address] [place] [address] Dr. Tracy Hubbard ALT [Catalytic activity/Vol] 44 U/L Normal 16-63 [facility] Comment on above: Performed By: #### C MP, CRP, TSH, LIPID, CK #### [facility] [address] [address] [address] Tracy Hubbard Anion gap [Moles/Vol] 12.3 mmol/L Normal [facility] Comment on above: Performed By: #### C MP, CRP, TSH, LIPID, CK #### [facility] [address] [place] [address] Dr. Tracy Hubbard AST [Catalytic activity/Vol] 26 U/L Normal 15-37 [facility] Comment on above: Performed By: #### C MP, CRP, TSH, LIPID, CK #### [facility] [address] [address] [address] Tracy Hubbard Bilirubin [Mass/Vol] 0.8 mg/dL Normal 0.2-1.0 [facility] Comment on above: Performed By: #### C MP, CRP, TSH, LIPID, CK #### [facility] [address] [place] [address] Dr. Tracy Hubbard Calcium [Mass/Vol] 8.9 mg/dL Normal 8.5-10.1 [facility] Comment on above: Performed By: #### C MP, CRP, TSH, LIPID, CK #### [facility] [address] [place] [address] Dr. Tracy Hubbard Chloride [Moles/Vol] 103 mmol/L Normal 98-107 [facility] Comment on above: Performed By: #### C MP, CRP, TSH, LIPID, CK #### [facility] [address] [place] [address] Dr. Tracy Hubbard CO2 [Moles/Vol] 27.0 mmol/L Normal 21.0-32.0 [facility] Comment on above: Performed By: #### C MP, CRP, TSH, LIPID, CK #### [facility] [address] [place] [address] Dr. Tracy Hubbard Creatinine [Mass/Vol] 1.04 mg/dL Normal 0.70-1.30 [facility] Comment on above: Performed By: #### C MP, CRP, TSH, LIPID, CK #### [facility] [address] [place] [address] Dr. Tracy Hubbard EGFR-AF BURKINAN >60 Normal >=60 [facility] Comment on above: Performed By: #### C MP, CRP, TSH, LIPID, CK #### [facility] [address] [place] [address] Dr. Tracy Hubbard EGFR-NON AF BURKINAN >60 Normal >=60 [facility] Comment on above: Performed By: #### C MP, CRP, TSH, LIPID, CK #### [facility] [address] [place] [address] Dr. Tracy Hubbard Globulin (S) [Mass/Vol] 3.4 g/dL Normal [facility] Comment on above: Performed By: #### C MP, CRP, TSH, LIPID, CK #### [facility] [address] [place] [address] Dr. Tracy Hubbard Glucose [Mass/Vol] 124 mg/dL Critically high 74-106 [facility] Comment on above: Performed By: #### C MP, CRP, TSH, LIPID, CK #### [facility] [address] [place] [address] Dr. Tracy Hubbard Potassium [Moles/Vol] 4.3 mmol/L Normal 3.5-5.1 [facility] Comment on above: Performed By: #### C MP, CRP, TSH, LIPID, CK #### [facility] [address] [place] [address] Dr. Tracy Hubbard Protein [Mass/Vol] 7.5 g/dL Normal 6.4-8.2 [facility] Comment on above: Performed By: #### C MP, CRP, TSH, LIPID, CK #### [facility] [address] [place] [address] Dr. Tracy Hubbard Sodium [Moles/Vol] 138 mmol/L Normal 136-145 [facility] Comment on above: Performed By: #### C MP, CRP, TSH, LIPID, CK #### [facility] [address] [place] [address] Dr. Tracy Hubbard Urea nitrogen [Mass/Vol] 16.0 mg/dL Normal 7.0-18.0 [facility] Comment on above: Performed By: #### C MP, CRP, TSH, LIPID, CK #### [facility] [address] [place] [address] Dr. Tracy Hubbard Urea nitrogen/Creatinine [Mass ratio] 15.4 mg/mg Normal [facility] Comment on above: Performed By: #### C MP, CRP, TSH, LIPID, CK #### [facility] [address] [place] [address] Dr. Tracy Hubbard SED RATE WESTERGRENon 2022 SED RATE 9 mm/hr Normal <=20 [facility] Comment on above: Performed By: #### S EDR #### [facility] [address] [place], [place] [address] Dr. Tracy Hubbard TSHon 07-29-2022 TSH 4.856 uIU/mL Critically high 0.358-3.74 0 [facility] Comment on above: Performed By: #### C MP, CRP, TSH, LIPID, CK #### [facility] [address], [place] [address] Dr. Tracy Hubbard XR hip RT min 2V(w/wo pelvis )*on 04-12-2022 XR hip RT min 2V(w/wo pelvis)* [facility] Other XR hip RT min 2V(w/wo pelvis)* [facility] OTOY Other XR hip RT min 2V(w/wo pelvis)* [address] [place] [address] O[facility] Other XR hip RT min 2V(w/wo pelvis)* [place] [address] [facility] Other XR hip RT min 2V(w/wo pelvis)* XRay Report [facility] Other XR hip RT min 2V(w/wo pelvis)* Signed [facility] Other XR hip RT min 2V(w/wo pelvis)* Patient: Esme Steven MR#: [id number] [facility] Other XR hip RT min 2V(w/wo pelvis)* 1049 [facility] Other XR hip RT min 2V(w/wo pelvis)* : 1960 Acct:[id number] [facility] Other XR hip RT min 2V(w/wo pelvis)* Age/Sex: 61 / M ADM Date: 04/12/22 [facility] Other XR hip RT min 2V(w/wo pelvis)* Loc: [facility] Room: Type: REG CLI [facility] Other XR hip RT min 2V(w/wo pelvis)* Attending Dr: Jonathan Samano MD [facility] Other XR hip RT min 2V(w/wo pelvis)* Copies to: Jonathan Samano MD [facility] Other XR hip RT min 2V(w/wo pelvis)* Ordering Provider: Jonathan Samano MD [facility] Other XR hip RT min 2V(w/wo pelvis)* Date of Service: 04/12/22 [facility] Other XR hip RT min 2V(w/wo pelvis)* XR/XR hip RT min 2V(w/wo pelvis)*: Right hip pain [facility] Other XR hip RT min 2V(w/wo pelvis)* RIGHT HIP - 2 views: OTO[facility] Other XR hip RT min 2V(w/wo pelvis)* CLINICAL HISTORY: Low back pain that radiates to right hip for years. No known injury. [facility] Other XR hip RT min 2V(w/wo pelvis)* COMPARISON: None [facility] Other XR hip RT min 2V(w/wo pelvis)* FINDINGS: Moderate degenerative changes of the right hip without acute bony process. Left hip [facility] Other XR hip RT min 2V(w/wo pelvis)* prosthesis is in place. [employer] Other XR hip RT min 2V(w/wo pelvis)* XR/XR hip RT min 2V(w/wo pelvis)* [facility]TO[facility] Other XR hip RT min 2V(w/wo pelvis)* IMPRESSION: [facility]TO[facility] Other XR hip RT min 2V(w/wo pelvis)* MODERATE DEGENERATIVE CHANGES OF THE RIGHT HIP WITHOUT ACUTE BONY PROCESS.. [facility] Other XR hip RT min 2V(w/wo pelvis)* Impression dictated by: Alex Castro Jr., D.O.04/12/2022 12:57 PM [facility] Other XR hip RT min 2V(w/wo pelvis)* Dictation Location: [place] [address] [facility] Other XR hip RT min 2V(w/wo pelvis)* Transcribed By: PWS 04/12/22 [facility] OTOY Other XR hip RT min 2V(w/wo pelvis)* Dictated By: Alex Castro Jr, DO 04/12/22 [facility] OTOY Other XR hip RT min 2V(w/wo pelvis)* Signed By: OTO[facility] Other XR hip RT min 2V(w/wo pelvis)* 04/12/22 1257 [facility] Other XR hand RT min 3V*on 022 XR hand RT min 3V* [facility]TO[facility] Other XR hand RT min 3V* [facility] [employer] OTOY Other XR hand RT min 3V* [address] [place] [address] OTOY Other XR hand RT min 3V* [place] [address] OTOY Other XR hand RT min 3V* XRay Report [facility] Other XR hand RT min 3V* Signed [facility] Other XR hand RT min 3V* Patient: Law jose antonio Steven MR#: [id number] [facility]TO[facility] Other XR hand RT min 3V* 7635 [facility]TO[facility] Other XR hand RT min 3V* : 1960 Acct:[id number] [facility] Other XR hand RT min 3V* Age/Sex: 61 / M ADM Date: 02/15/22 OTOY Other XR hand RT min 3V* Loc: [facility] Room: Type : [facility]TO[facility] Other XR hand RT min 3V* Attending Dr: Orlando Nichole MD [facility] Other XR hand RT min 3V* Copies to: Chio Nichole MD [facility] Other XR hand RT min 3V* Ordering Provider: Chio Nichole MD [facility] Other XR hand RT min 3V* Date of Service: 02/15/22 [facility] Other XR hand RT min 3V* XR/XR hand RT min 3V*: Right hand pain [facility] Other XR hand RT min 3V* [address] film [facility] Other XR hand RT min 3V* COMPARISON:05/23/21 [facility] Other XR hand RT min 3V* HISTORY:3rd metacarp al phalangeal joint pain. 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 Mild interphalangeal degenerative changes. No acute bony findings. 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 [facility] Other XR hand RT min 3V* Impression dictated by: Matt Ferrell M.D.02/15/2022 4:53 PM [facility] Other XR hand RT min 3V* Dictation Location: [place] [address] [facility]TOY Other XR hand RT min 3V* Transcribed By: PWS 02/15/221652 [facility] Other XR hand RT min 3V* Dictated By: Pollo Ferrell DO 02/15/221651 [facility] Other XR hand RT min 3V* Signed By: OTO[facility] Other XR hand RT min 3V* 02/15/2216[address] [facility] [employer] Other XR hip LT min 2V(w/wo pelvis )*on 09-28-2021 XR hip LT min 2V(w/wo pelvis)* [facility] OTOY Other XR hip LT min 2V(w/wo pelvis)* [facility] [employer] [facility]Y Other XR hip LT min 2V(w/wo pelvis)* [address] [facility] OTOY Other XR hip LT min 2V(w/wo pelvis)* [place] [address] OTOY Other XR hip LT min 2V(w/wo pelvis)* XRay Report [facility]TO[facility] Other XR hip LT min 2V(w/wo pelvis)* Signed [facility] Other XR hip LT min 2V(w/wo pelvis)* Patient: Esme Steven MR#: [id number] [facility]TO[facility] Other XR hip LT min 2V(w/wo pelvis)* 7690 OTO[facility] Other XR hip LT min 2V(w/wo pelvis)* : 1960 Acct:[id number] [facility] Other XR hip LT min 2V(w/wo pelvis)* Age/Sex: 60 / M ADM Date: 09/28/21 OTOY Other XR hip LT min 2V(w/wo pelvis)* Loc: [facility] Room: Type: [facility]TOY Other XR hip LT min 2V(w/wo pelvis)* Attending Dr: Sarai Mendez II, MD [facility]TOY Other XR hip LT min 2V(w/wo pelvis)* Copies to: Sarai Mendez MD [facility] Other XR hip LT min 2V(w/wo pelvis)* Ordering Provider: Sarai Mendez MD [facility] Other XR hip LT min 2V(w/wo pelvis)* Date of Service: 09/28/21 [facility] Other XR hip LT min 2V(w/wo pelvis)* XR/XR hip LT min 2V(w/wo pelvis)*: S/P total left hip arthroplasty [facility]TO[facility] Other XR hip LT min 2V(w/wo pelvis)* 2 views LEFT hip single view pelvisplain film OTOY Other XR hip LT min 2V(w/wo pelvis)* COMPARISON:08/17/21 [facility] Other XR hip LT min 2V(w/wo pelvis)* HISTORY:Status post LEFT total hip arthroplasty [facility]TO[facility] Other XR hip LT min 2V(w/wo pelvis)* No fracture, dislocation or focal soft tissue abnormality seen.No hardware failure or loosening [facility]TO[facility] Other XR hip LT min 2V(w/wo pelvis)* identified. [facility]TO[facility] Other XR hip LT min 2V(w/wo pelvis)* XR/XR hip LT min 2V(w/wo pelvis)* [facility]TO[facility] Other XR hip LT min 2V(w/wo pelvis)* IMPRESSION:Stable LEFT hip arthroplasty. [facility]TO[facility] Other XR hip LT min 2V(w/wo pelvis)* Impression dictated by: Matt Ferrell M.D.09/28/2021 1:11 PM [facility] Other XR hip LT min 2V(w/wo pelvis)* Dictation Location: [facility] OTOY Other XR hip LT min 2V(w/wo pelvis)* Transcribed By: PWS 09/28/21 [facility] OTOY Other XR hip LT min 2V(w/wo pelvis)* Dictated By: Matt Ferrell DO 09/28/21 [facility] OTOY Other XR hip LT min 2V(w/wo pelvis)* Signed By: OTOY Other XR hip LT min 2V(w/wo pelvis)* 09/28/21 [facility] OTOY Other Laboratory - Hematology and Cell countson 06-02-2009 Lymphocytes/100 WBC (Bld) 14 % [facility] Neutrophils/100 WBC (Bld) 12 % 0 - 25 % [facility] No Panel Informationon 06-02 Clarity, [place] Slightly turbid Abnormal CLEAR [facility] Color, [place] Slightly bloody Abnormal YEL [facility] Macro%, SF 26 % [facility] [place]%, SF 24 % [facility] [place] [address] /uL [facility] Reac%, SF 6 % [facility] Site, SF Unknown [facility] Slide Number SF [id number] [facility] Supernatant Clarity, [place] Unable to assay. Quantity not sufficient. Abnormal CLEAR [facility] Supernatant Color, [place] Unable to assay. Q uantity not sufficient. Abnormal YEL [facility] Synovial CL% 18 % [facility] Synovial Comment Count may be inaccur ate due to Clumped on chamber Cellular disintegration [facility] Synovial Pathologist Interpretation Test Not Indicated [facility] Total Nucleated Cells, SF 200 /uL [facility] Vital Signs Date Time Vital Sign Value Performing Clinician Facility 12-31-2023 13:42-0400 Diastolic blood pressure 84 mm[Hg] DO Coleman Ball Work Phone: [facility] 12-31-2023 13:42-0400 Heart rate 70 /min DO Coleman Ball Work Phone: [facility] 12-31-2023 13:42-0400 Respiratory rate 16 /min DO Coleman Ball Work Phone: [facility] 12-31-2023 13:42-0400 SaO2% (BldA) [Mass fraction] 98 % DO Coleman Ball Work Phone: [facility] 12-31-2023 13:42-0400 Systolic blood pressure 135 mm[Hg] DO Coleman Ball Work Phone: [facility] 12-31-2023 10:41-0400 Body height 179.07 cm DO Coleman Ball Work Phone: [facility] 12-31-2023 10:41-0400 Body weight 105.23 kg DO Coleman Ball Work Phone: [facility] 11-19-2023 14:26-0400 Body height 167.64 cm DO Coleman Ball Work Phone: [facility] 11-19-2023 14:26-0400 Body mass index (BMI) [Ratio] 37.8 kg/m2 DO Coleman Ball Work Phone: [facility] 11-19-2023 14:26-0400 Body weight 106.31 kg DO Coleman Ball Work Phone: [facility] 11-19-2023 14:26-0400 Diastolic blood pressure 85 mm[Hg] DO Coleman Ball Work Phone: [facility] 11-19-2023 14:26-0400 Heart rate 80 /min DO Coleman Ball Work Phone: [facility] 11-19-2023 14:26-0400 Respiratory rate 12 /min DO Coleman Ball Work Phone: [facility] 11-19-2023 14:26-0400 Systolic blood pressure 134 mm[Hg] DO Coleman Ball Work Phone: [facility] 09-07-2023 13:17-0400 Body height 167.64 cm DO Coleman Ball Work Phone: [facility] 09-07-2023 13:17-0400 Body mass index (BMI) [Ratio] 38.5 kg/m2 DO Coleman Ball Work Phone: [facility] 09-07-2023 13:17040 Body weight 108.12 kg DO Coleman Ball Work Phone: [facility] 09-07-2023 13:17-0400 Diastolic blood pressure 91 mm[Hg] DO Coleman Ball Work Phone: [facility] 09-07-2023 13:17-0400 Heart rate 78 /min DO Coleman Ball Work Phone: [facility] 09-07-2023 13:17-0400 Respiratory rate 12 /min DO Coleman Ball Work Phone: [facility] 09-07-2023 13:17-0400 Systolic blood pressure 136 mm[Hg] DO Coleman Ball Work Phone: [facility] 09-01-2023 11:29-0400 Body temperature 97.8 [degF] DO Coleman Ball Work Phone: [facility] 09-01-2023 11:29-0400 Diastolic blood pressure 80 mm[Hg] DO Coleman Ball Work Phone: [facility] 09-01-2023 11:29-0400 Heart rate 88 /min DO Coleman Ball Work Phone: [facility] 09-01-2023 11:29-0400 Respiratory rate 16 /min DO Coleman Ball Work Phone: [facility] 09-01-2023 11:29-0400 SaO2% (BldA) [Mass fraction] 98 % DO Coleman Ball Work Phone: [facility] 09-01-2023 11:29-0400 Systolic blood pressure 140 mm[Hg] DO Coleman Ball Work Phone: [facility] 09-01-2023 05:17-0400 Body weight 113 kg DO Coleman Ball Work Phone: [facility] 08-31-2023 13:01-0400 Body height 177.8 cm DO Coleman Ball Work Phone: [facility] 08-30-2023 22:00-0400 Diastolic blood pressure 67 mm[Hg] DO Coleman Ball Work Phone: [facility] 08-30-2023 22:00-0400 Heart rate 86 /min DO Coleman Ball Work Phone: [facility] 08-30-2023 22:00-0400 Respiratory rate 21 /min DO Coleman Ball Work Phone: [facility] 08-30-2023 22:00-0400 SaO2% (BldA) [Mass fraction] 93 % DO Coleman Ball Work Phone: [facility] 08-30-2023 22:00-0400 Systolic blood pressure 107 mm[Hg] DO Coleman Ball Work Phone: [facility] 08-30-2023 20:00-0400 Body temperature 99.8 [degF] DO Coleman Ball Work Phone: [facility] 08-30-2023 16:29-0400 Body height 177.8 cm DO Coleman Ball Work Phone: [facility] 08-30-2023 16:29-0400 Body weight 105.23 kg DO Coleman Ball Work Phone: [facility] 08-16-2023 11:36-0400 Body height 179.1 cm [facility] 08-16-2023 11:36-0400 Body mass index (BMI) [Ratio] 34.52 kg/m2 [facility] 08-16-2023 11:36-0400 Body weight 110.68 kg [facility] 08-16-2023 11:36-0400 Diastolic blood pressure 74 mm[Hg] [facility] 08-16-2023 11:36-0400 Heart rate 75 /min [facility] 08-16-2023 11:36-0400 Systolic blood pressure 124 mm[Hg] [facility] 08-02-2023 09:29-0400 Inhaled oxygen flow rate 3 L/min DO Coleman Ball Work Phone: [facility] 08-02-2023 09:290400 SaO2% (BldA) [Mass fraction] 95 % DO Coleman Ball Work Phone: [facility] 08-01-2023 13:58-0400 Body height 177.8 cm DO Coleman Ball Work Phone: [facility] 08-01-2023 13:58-0400 Body weight 111 kg DO Coleman Ball Work Phone: [facility] 07-27-2023 11:14-0400 Diastolic blood pressure 80 mm[Hg] Antonio Steele MD Work Phone: [facility] 07-27-2023 11:14-0400 Systolic blood pressure 110 mm[Hg] Antonio Steele MD Work Phone: [facility] 07-27-2023 11:13-0400 Body height 177.8 cm Antonio Steele MD Work Phone: [facility] 07-27-2023 11:13-0400 Body mass index (BMI) [Ratio] 35.15 kg/m2 Antonio Steele MD Work Phone: [facility] 07-27-2023 11:13-0400 Body weight 111.13 kg Antonio Steele MD Work Phone: [facility] 07-27-2023 11:13-0400 Heart rate 91 /min Antonio Steele MD Work Phone: [facility] 06-29-2023 10:00-0400 Body height 177.8 cm DO Coleman Ball Work Phone: [facility] 06-29-2023 10:00-0400 Body mass index (BMI) [Ratio] 35.7 kg/m2 DO Coleman Ball Work Phone: [facility] 06-29-2023 10:00-0400 Body weight 113.11 kg DO Coleman Ball Work Phone: [facility] 06-29-2023 10:00-0400 Diastolic blood pressure 84 mm[Hg] DO Coleman Ball Work Phone: [facility] 06-29-2023 10:00-0400 Heart rate 86 /min DO Coleman Ball Work Phone: [facility] 06-29-2023 10:00-0400 Respiratory rate 12 /min DO Coleman Ball Work Phone: [facility] 06-29-2023 10:00-0400 Systolic blood pressure 119 mm[Hg] DO Coleman Ball Work Phone: [facility] 05-07-2023 11:00-0500 Body height 177.8 cm Sukhjinder Montesinos Other [facility] 05-07-2023 11:00-0500 Body mass index (BMI) [Ratio] 34.72 kg/m2 Sukhjinder Montesinos Other [employer] Other 05-07-2023 11:00-0500 Body weight 109.76 kg DO Coleman Ball Work Phone: [facility] 05-07-2023 11:00-0500 Body weight 109.77 kg Sukhjinder Montesinos Other [employer] Other 05-02-2023 10:45-0500 Body height 177.8 cm Coleman Ball Other [facility] 05-02-2023 10:45-0500 Body mass index (BMI) [Ratio] 34.72 kg/m2 Coleman Ball Other [facility] [employer] Other 05-02-2023 10:45-0500 Body weight 109.77 kg Coleman Ball Other [facility] [employer] Other 05-02-2023 10:45-0500 Body weight 109.76 kg DO Coleman Ball Work Phone: [facility] 05-02-2023 10:45-0500 Diastolic blood pressure 85 mm[Hg] Coleman Ball Other [facility] 05-02-2023 10:45-0500 Respiratory rate 12 /min Coleman Ball Other [facility] [employer] Other 05-02-2023 10:45-0500 Systolic blood pressure 122 mm[Hg] Coleman Ball Other [facility] 04-05-2023 10:15-0500 Body height 177.8 cm Coleman Ball Other [facility] 04-05-2023 10:15-0500 Body mass index (BMI) [Ratio] 34.29 kg/m2 Coleman Ball Other [facility] [employer] Other 04-05-2023 10:15-0500 Body weight 108.41 kg Coleman Ball Other [facility] [employer] Other 04-05-2023 10:15-0500 Body weight 108.4 kg DO Coleman Ball Work Phone: [facility] 04-05-2023 10:15-0500 Diastolic blood pressure 58 mm[Hg] Coleman Ball Other [facility] 04-05-2023 10:15-0500 Respiratory rate 12 /min Coleman Ball Other [facility] [employer] Other 04-05-2023 10:15-0500 Systolic blood pressure 88 mm[Hg] Coleman Ball Other [facility] 03-15-2023 11:15-0500 Body height 177.8 cm Sukhjinder Montesinos Other [facility] 03-15-2023 11:15-0500 Body mass index (BMI) [Ratio] 34.29 kg/m2 Sukhjinder Montesinos Other [facility] [employer] Other 03-15-2023 11:15-0500 Body weight 108.41 kg Sukhjinder Montesinos Other [facility] [employer] Other 03-15-2023 11:15-0500 Body weight 108.4 kg DO Coleman Ball Work Phone: [facility] 03-05-2023 13:28-0500 Body weight 106.59 kg Heladio Pineda MD Work Phone: [facility] 03-05-2023 13:28-0500 Diastolic blood pressure 81 mm[Hg] Heladio Pineda MD Work Phone: [facility] 03-05-2023 13:28-0500 Heart rate 110 /min Heladio Pineda MD Work Phone: [facility] 03-05-2023 13:28-0500 Systolic blood pressure 124 mm[Hg] Heladio Pineda MD Work Phone: [facility] 02-13-2023 15:00-0500 Diastolic blood pressure 68 mm[Hg] DO Coleman Ball Work Phone: [facility] 02-13-2023 15:00-0500 Heart rate 75 /min DO Coleman Ball Work Phone: [facility] 02-13-2023 15:00-0500 Respiratory rate 16 /min DO Coleman Ball Work Phone: [facility] 02-13-2023 15:00-0500 SaO2% (BldA) [Mass fraction] 94 % DO Coleman Ball Work Phone: [facility] 02-13-2023 15:00-0500 Systolic blood pressure 111 mm[Hg] DO Coleman Ball Work Phone: [facility] 02-13-2023 11:45-0500 Inhaled oxygen flow rate 1 L/min DO Coleman Ball Work Phone: [facility] 02-13-2023 10:48-0500 Body temperature 99.2 [degF] DO Coleman Ball Work Phone: [facility] 02-13-2023 06:59-0500 Body height 179.07 cm DO Coleman Ball Work Phone: [facility] 02-13-2023 06:59-0500 Body mass index (BMI) [Ratio] 34 kg/m2 DO Coleman Ball Work Phone: [facility] 02-13-2023 06:59-0500 Body weight 109 kg DO Coleman Ball Work Phone: [facility] 01-24-2023 15:15-0400 Body height 177.8 cm Coleman Ball Other [employer] Other 01-24-2023 15:15-0400 Body mass index (BMI) [Ratio] 34.32 kg/m2 Coleman Ball Other [employer] Other 01-24-2023 15:15-0400 Body weight 108.5 kg Coleman Ball Other [employer] Other 01-24-2023 15:15-0400 Diastolic blood pressure 69 mm[Hg] Coleman Ball Other [employer] Other 01-24-2023 15:15-0400 Respiratory rate 12 /min Coleman Ball Other [employer] Other 01-24-2023 15:15-0400 Systolic blood pressure 107 mm[Hg] Coleman Ball Other [employer] Other 01-05-2023 10:55-0400 Body height 179.1 cm Heladio Pineda MD Work Phone: [facility] 01-05-2023 10:55-0400 Body weight 107.5 kg Heladio Pineda MD Work Phone: [facility] 01-05-2023 10:55-0400 Diastolic blood pressure 74 mm[Hg] Heladio Pineda MD Work Phone: [facility] 01-05-2023 10:55-0400 Heart rate 71 /min Heladio Pineda MD Work Phone: [facility] 01-05-2023 10:55-0400 Systolic blood pressure 143 mm[Hg] Heladio Pineda MD Work Phone: [facility] 01-02-2023 10:30-0400 Body height 177.8 cm Coleman Ball Other [employer] Other 01-02-2023 10:30-0400 Body mass index (BMI) [Ratio] 34.4 kg/m2 Coleman Ball Other [employer] Other 01-02-2023 10:30-0400 Body weight 108.77 kg Coleman Ball Other [employer] Other 01-02-2023 10:30-0400 Diastolic blood pressure 78 mm[Hg] Coleman Ball Other [employer] Other 01-02-2023 10:30-0400 Respiratory rate 12 /min Coleman Ball Other [employer] Other 01-02-2023 10:30-0400 Systolic blood pressure 120 mm[Hg] Coleman Ball Other [employer] Other 11-13-2022 15:15-0400 Body height 177.8 cm Coleman Ball Other [employer] Other 11-13-2022 15:15-0400 Body mass index (BMI) [Ratio] 33.86 kg/m2 Coleman Ball Other [employer] Other 11-13-2022 15:15-0400 Body weight 107.05 kg Coleman Ball Other [employer] Other 11-13-2022 15:15-0400 Diastolic blood pressure 75 mm[Hg] Coleman Ball Other [employer] Other 11-13-2022 15:15-0400 Respiratory rate 12 /min Coleman Ball Other [employer] Other 11-13-2022 15:15-0400 Systolic blood pressure 112 mm[Hg] Coleman Ball Other [employer] Other 10-25-2022 14:45-0400 Body height 177.8 cm Coleman Ball Other [employer] Other 10-25-2022 14:45-0400 Body mass index (BMI) [Ratio] 35.24 kg/m2 Coleman Ball Other [employer] Other 10-25-2022 14:45-0400 Body weight 111.4 kg Coleman Ball Other [employer] Other 10-25-2022 14:45-0400 Diastolic blood pressure 76 mm[Hg] Coleman Ball Other [employer] Other 10-25-2022 14:45-0400 Respiratory rate 12 /min Coleman Ball Other [employer] Other 10-25-2022 14:45-0400 Systolic blood pressure 112 mm[Hg] Coleman Ball Other [employer] Other 10-11-2022 15:50-0400 Diastolic blood pressure 67 mm[Hg] DO Coleman Ball Work Phone: [facility] 10-11-2022 15:50-0400 Heart rate 75 /min DO Coleman Ball Work Phone: [facility] 10-11-2022 15:50-0400 Respiratory rate 20 /min DO Coleman Ball Work Phone: [facility] 10-11-2022 15:50-0400 SaO2% (BldA) [Mass fraction] 95 % DO Coleman Ball Work Phone: [facility] 10-11-2022 15:50-0400 Systolic blood pressure 110 mm[Hg] DO Coleman Ball Work Phone: [facility] 10-03-2022 08:30-0400 Body height 177.8 cm Coleman Ball Other [employer] Other 10-03-2022 08:30-0400 Body mass index (BMI) [Ratio] 36.01 kg/m2 Coleman Ball Other [facility] [employer] Other 10-03-2022 08:30-0400 Body weight 113.85 kg Coleman Ball Other [employer] Other 10-03-2022 08:30-0400 Diastolic blood pressure 86 mm[Hg] Coleman Ball Other [employer] Other 10-03-2022 08:30-0400 Respiratory rate 12 /min Coleman Ball Other [employer] Other 10-03-2022 08:30-0400 Systolic blood pressure 133 mm[Hg] Coleman Ball Other [employer] Other 08-09-2022 10:00-0400 Body height 177.8 cm Coleman Ball Other [employer] Other 08-09-2022 10:00-0400 Body mass index (BMI) [Ratio] 36.21 kg/m2 Coleman Ball Other [employer] Other 08-09-2022 10:00-0400 Body weight 114.49 kg Coleman Ball Other [employer] Other 08-09-2022 10:00-0400 Diastolic blood pressure 68 mm[Hg] Coleman Ball Other [employer] Other 08-09-2022 10:00-0400 SaO2% (BldA) [Mass fraction] 94 % Coelman Ball Other [employer] Other 08-09-2022 10:00-0400 Systolic blood pressure 121 mm[Hg] Coleman Ball Other [employer] Other 07-28-2022 10:30-0400 Body height 177.8 cm Coleman Ball Other [employer] Other 07-28-2022 10:30-0400 Body mass index (BMI) [Ratio] 36.67 kg/m2 Coleman Ball Other [employer] Other 07-28-2022 10:30-0400 Body weight 115.94 kg Coleman Ball Other [employer] Other 07-28-2022 10:30-0400 Diastolic blood pressure 76 mm[Hg] Coleman Ball Other [employer] Other 07-28-2022 10:30-0400 Respiratory rate 16 /min Coleman Ball Other [employer] Other 07-28-2022 10:30-0400 Systolic blood pressure 122 mm[Hg] Coleman Ball Other [employer] Other 05-23-2022 15:15-0500 Body height 177.8 cm Coleman Ball Other [employer] Other 05-23-2022 15:15-0500 Body mass index (BMI) [Ratio] 37.47 kg/m2 Coleman Ball Other [employer] Other 05-23-2022 15:15-0500 Body weight 118.48 kg Coleman Ball Other [employer] Other 05-23-2022 15:15-0500 Diastolic blood pressure 72 mm[Hg] Coleman Ball Other [employer] Other 05-23-2022 15:15-0500 Respiratory rate 12 /min Coleman Ball Other [employer] Other 05-23-2022 15:15-0500 Systolic blood pressure 122 mm[Hg] Coleman Ball Other [employer] Other 05-22-2022 14:01-0500 Body height 177.8 cm DO Coleman Ball Work Phone: [facility] 05-22-2022 14:01-0500 Body temperature 99 [degF] DO Coleman Ball Work Phone: [facility] 05-22-2022 14:01-0500 Body weight 116.95 kg DO Coleman Ball Work Phone: [facility] 05-22-2022 14:01-0500 Diastolic blood pressure 96 mm[Hg] DO Coleman Ball Work Phone: [facility] 05-22-2022 14:01-0500 Heart rate 77 /min DO Coleman Ball Work Phone: [facility] 05-22-2022 14:01-0500 Respiratory rate 18 /min DO Colemna Ball Work Phone: [facility] 05-22-2022 14:01-0500 SaO2% (BldA) [Mass fraction] 95 % DO Coleman Ball Work Phone: [facility] 05-22-2022 14:01-0500 Systolic blood pressure 163 mm[Hg] DO Coleman Ball Work Phone: [facility] 02-15-2022 15:00-0500 Body height 177.8 cm Chio Nichole Other [employer] Other 02-15-2022 15:00-0500 Body mass index (BMI) [Ratio] 34.15 kg/m2 Chio Nichole Other [employer] Other 02-15-2022 15:00-0500 Body weight 107.96 kg Chiothien Nichole Other [employer] Other 02-13-2022 11:00-0500 Body height 177.8 cm Jonathan Samano Other [employer] Other 09-28-2021 12:15-0400 Body height 177.8 cm Sarai Mendez II Other [employer] Other 06-17-2021 09:15-0500 Body height 177.8 cm Sarai العراقيle II Other [employer] Other 06-17-2021 09:15-0500 Body mass index (BMI) [Ratio] 34.15 kg/m2 Sarai Mendez II Other [employer] Other 06-17-2021 09:15-0500 Body weight 107.96 kg Sarai Mendez II Other [employer] Other 02-22-2021 15:45-0500 Body height 177.8 cm Jonathan Felter Other [employer] Other 02-22-2021 15:45-0500 Body mass index (BMI) [Ratio] 34.43 kg/m2 Jonathan Felter Other [employer] Other 02-22-2021 15:45-0500 Body weight 108.86 kg Jonathan Felter Other [employer] Other 01-05-2021 10:45-0400 Body height 177.8 cm Jonathan Felter Other [employer] Other 01-05-2021 10:45-0400 Body mass index (BMI) [Ratio] 34.43 kg/m2 Jonathan Felter Other [facility] Other 01-05-2021 10:45-0400 Body weight 108.86 kg Jonathan Felter Other [employer] Other Encounters Encounter Date Encounter Type Care Provider Facility Start: 04-02-2024 End: 04-08-2024 Refill Sarai Velasco MD Work Phone: [facility] Comment on above: Med Refill Start: 02-18-2024 End: 02-18-2024 ambulatory Coleman Ball DO Work Phone: [facility] Work Phone: Start: 02-18-2024 End: 02-18-2024 Patient encounter procedure Coleman Ball DO Work Phone: [facility] Work Phone: Start: 02-14-2024 End: 02-14-2024 ambulatory [facility] Start: 02-12-2024 End: 02-12-2024 ambulatory DO Coleman Ball Work Phone: [facility] Work Phone: Start: 02-12-2024 End: 02-12-2024 Patient encounter procedure DO Coleman Ball Work Phone: [facility] Work Phone: Start: 01-29-2024 End: 01-29-2024 Evaluation and management of inpatient [facility] Start: 01-28-2024 Encounter for other preprocedural examination [facility] Start: 01-28-2024 Evaluation and management of inpatient [facility] Start: 01-24-2024 End: 01-24-2024 Patient encounter procedure DO Coleman Ball Work Phone: [facility] Work Phone: Start: 01-24-2024 End: 01-24-2024 ambulatory DO Coleman Ball Work Phone: [facility] Work Phone: Start: 12-31-2023 Non-patient / Non-visit DO Eris rigoberto Ball Work Phone: [facility] Work Phone: Start: 12-31-2023 Non-patient / Non-visit DO Eris rigoberto Ball Work Phone: [facility] Work Phone: Start: 12-31-2023 End: 12-31-2023 Admission to same day surgery center DO Coleman Ball Work Phone: [facility] Work Phone: Start: 12-31-2023 End: 12-31-2023 ambulatory DO Coleman Ball Work Phone: [facility] Work Phone: Start: 12-30-2023 Evaluation and management of inpatient [facility] Start: 12-19-2023 End: 12-19-2023 ambulatory [facility] Start: 12-13-2023 End: 2023 Refill Heladio Pineda MD Work Phone: Rheumatology Comment on above: Refill Request Start: 11-21-2023 Non-patient / Non-visit DO Eris franklin Ball Work Phone: [facility] Work Phone: Start: 11-19-2023 End: 11-19-2023 ambulatory DO Coleman Ball Work Phone: [facility] Work Phone: Start: 11-19-2023 End: 11-19-2023 Encounter for general adult medical examination without abnormal findings DO Coleman Ball Work Phone: [facility] Start: 11-19-2023 End: 11-19-2023 Patient encounter procedure DO Coleman Ball Work Phone: [facility] Work Phone: Start: 10-18-2023 End: 10-18-2023 ambulatory [facility] Start: 10-02-2023 End: 10-02-2023 ambulatory DO Coleman Ball Work Phone: [facility] Work Phone: Start: 10-02-2023 End: 10-02-2023 Patient encounter procedure DO Coleman Ball Work Phone: [facility] Work Phone: Start: 09-19-2023 End: 09-19-2023 ambulatory SANTOS CABRERA Not Available Start: 09-09-2023 Telephone encounter Heladio alvarado MD Work Phone: Rheumatology Comment on above: Results Start: 09-07-2023 End: 09-07-2023 ambulatory DO Coleman Brower Work Phone: [facility] Work Phone: Start: 09-07-2023 End: 09-07-2023 Patient encounter procedure DO Coleman Brower Work Phone: [facility] Work Phone: Start: 09-07-2023 Non-patient / Non-visit DO Eris Brower Work Phone: [facility] Work Phone: Start: 09-05-2023 Refill Heladio Pineda MD Work Phone: Rheumatology Comment on above: Refill Request Start: 09-05-2023 End: 09-05-2023 ambulatory COLEMAN BROWER Facility:[facility] Start: 09-05-2023 Non-patient / Non-visit DO Eris Brower Work Phone: [facility] Physician [facility] Work Phone: Start: 08-30-2023 End: 09-01-2023 Evaluation and management of inpatient DO Coleman Brower Work Phone: [facility] Work Phone: Start: 08-16-2023 End: 08-16-2023 Professional / ancillary services management Ky Navarro [facility] Comment on above: Paroxysmal atrial fi brillation (Multi) Start: 08-16-2023 End: 08-16-2023 ambulatory [facility] Start: 08-02-2023 End: 08-02-2023 Admission to same day surgery center DO Coleman Brower Work Phone: [facility] Work Phone: Start: 08-02-2023 End: 08-02-2023 ambulatory DO Coleman Brower Work Phone: [facility] Work Phone: Start: 07-27-2023 End: 07-27-2023 Office outpatient new 60 minutes Antonio Steele MD Work Phone: [facility] Comment on above: Persistent atrial fi brillation (Multi) (Primary Dx); Multi-vessel coronary artery stenosis; Cardiomyopathy, ischemic; Mixed hyperlipidemia; 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 (Multi); Status post aorto-coronary artery bypass graft; detention current use of anticoagulant therapy; BMI 35.0-35.9,adult Start: 07-27-2023 End: 07-27-2023 ambulatory [facility] Start: 07-09-2023 Telephone encounter Heladio alvarado MD Work Phone: Rheumatology Comment on above: Results Start: 07-05-2023 End: 07-05-2023 ambulatory COLEMAN Mejia BALL Facility:[facility] Start: 07-05-2023 Non-patient / Non-visit DO Eris Brower Work Phone: [facility] Physician [facility] Work Phone: Start: 07-05-2023 End: 07-05-2023 ambulatory COLEMAN Jackie BALL Facility:[facility] Start: 06-30-2023 Telephone encounter Heladio alvarado MD Work Phone: Rheumatology Comment on above: Results; Orders Start: 06-29-2023 End: 06-29-2023 ambulatory DO Coleman Ball Work Phone: [facility] Work Phone: Start: 06-29-2023 End: 06-29-2023 Patient encounter procedure DO Coleman Ball Work Phone: [facility] Physician [facility] Work Phone: Start: 06-28-2023 ambulatory UNKNOWN PROVIDER Facili ty: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, T38.0X5A] Start: 06-20-2023 End: 06-20-2023 Patient encounter procedure DO Coleman Ball Work Phone: [facility] Work Phone: Start: 06-14-2023 Telephone encounter [facility] Start: 06-12-2023 End: 06-13-2023 ambulatory CHHAYA Huber [facility] Start: 06-11-2023 Telephone encounter Ambar Figueroa LPN [facility] Comment on above: EP Surgery ( Pt Educ ation) Start: 06-06-2023 End: 06-06-2023 Patient encounter procedure DO Coleman Ball Work Phone: [facility] Work Phone: Start: 06-04-2023 End: 06-04-2023 ambulatory [facility] Start: 06-04-2023 Non-patient / Non-visit DO Eris nicolasin Ball Work Phone: [facility] Work Phone: Start: 06-01-2023 Telephone encounter Melinda leso CMA [facility] Start: 05-21-2023 End: 05-21-2023 Patient encounter procedure DO Coleman Ball Work Phone: [facility] Work Phone: Start: 05-21-2023 End: 05-21-2023 ambulatory DO Coleman Ball Work Phone: [facility] Work Phone: Start: 05-21-2023 End: 05-21-2023 Patient encounter procedure DO Coleman Ball Work Phone: [facility] Start: 05-21-2023 End: 05-21-2023 ambulatory DO Coleman Ball Work Phone: [facility] Work Phone: Start: 05-21-2023 Office outpatient vi sit 15 minutes Melinda Verduzco [facility] Start: 05-21-2023 Telephone encounter Sarai Mendez II [facility] Start: 05-18-2023 End: 05-18-2023 ambulatory Coleman Ball Other [employer] Other Start: 05-18-2023 Telephone encounter Coleman Brower [facility] Start: 05-16-2023 Office outpatient vi sit 15 minutes Sarai Mendez II [facility] Start: 05-16-2023 End: 05-16-2023 Patient encounter procedure DO Coleman Ball Work Phone: [facility] Start: 05-16-2023 End: 05-16-2023 ambulatory DO Coleman Ball Work Phone: [facility] Work Phone: Start: 05-07-2023 End: 05-07-2023 ambulatory Sukhjinder Montesinos Other [facility] Other Start: 05-07-2023 Office outpatient vi sit 25 minutes Sukhjinder Montesinos [facility] Start: 05-07-2023 End: 05-07-2023 Patient encounter procedure DO Coleman Ball Work Phone: [facility] Start: 05-02-2023 End: 05-02-2023 ambulatory Coleman Ball Other [facility] Other Start: 05-02-2023 Office outpatient vi sit 15 minutes Coleman Brower [facility] Start: 05-02-2023 End: 05-02-2023 Patient encounter procedure DO Coleman Ball Work Phone: [facility] Start: 04-18-2023 End: 04-19-2023 Emergency department patient visit THERESA PRAKASH [facility] Start: 04-18-2023 Telephone encounter Florence Fermin RN [facility] Start: 04-12-2023 End: 04-12-2023 ambulatory Coleman Ball Other [facility] Other Start: 04-12-2023 Office outpatient vi sit 15 minutes Coleman Ball [facility] Start: 04-12-2023 Patient encounter procedure DO Coleman Ball Work Phone: [facility] Start: 04-11-2023 End: 04-11-2023 ambulatory Sarai Gibson II Other [facility] Other Start: 04-11-2023 Postop follow up vis it related to original px Sarai Andrea II [facility] Start: 04-06-2023 End: 04-06-2023 ambulatory Coleman Ball Other [facility] Other Start: 04-06-2023 Telephone encounter Coleman Ball [facility] Start: 04-05-2023 End: 04-05-2023 ambulatory Coleman Ball Other [facility] Other Start: 04-05-2023 Office outpatient vi sit 15 minutes Coleman Ball [facility] Start: 04-05-2023 End: 04-05-2023 Patient encounter procedure DO Coleman Ball Work Phone: [facility] Work Phone: Start: 03-29-2023 Postop follow up vis it related to original px Sarai Gibson II [facility] Start: 03-29-2023 End: 03-29-2023 Patient encounter procedure DO Coleman Ball Work Phone: [facility] Start: 03-29-2023 End: 03-29-2023 ambulatory DO Coleman Ball Work Phone: [facility] Work Phone: Start: 03-15-2023 End: 03-15-2023 ambulatory Sukhjinder Montesinos Other [facility] Other Start: 03-15-2023 Office outpatient vi sit 25 minutes Sukhjinder Montesinos [facility] Start: 03-15-2023 Postop follow up vis it related to original px Melinda Verduzco [facility] Start: 03-15-2023 End: 03-15-2023 Patient encounter procedure DO Coleman Brower Work Phone: [facility] Work Phone: Start: 03-12-2023 End: 03-12-2023 ambulatory Sarai العراقيle II Other [facility] Other Start: 03-12-2023 Telephone encounter Sarai العراقيle II [facility] Start: 03-07-2023 End: 03-07-2023 ambulatory Coleman Brower Other [facility] Other Start: 03-07-2023 Postop follow up vis it related to original px Sarai العراقيle II [facility] Start: 03-07-2023 Telephone encounter Coleman ESTRADA Inoc[facility] Comment on above: Results Start: 03-05-2023 End: 03-05-2023 ambulatory COLEMAN BROWER [facility] [email or web address] Other Start: 03-05-2023 End: 03-05-2023 Patient encounter procedure Heladio Pineda MD Work Phone: Rheumatology Comment on above: PMR (polymyalgia rhe umatica) (HCC) (Primary Dx); Elevated sed rate; Elevated C-reactive protein (CRP); Idiopathic chronic gout of multiple sites without tophus; Pseudogout involving multiple joints; Secondary osteoarthritis of multiple sites; Rotator cuff arthropathy of left shoulder; Pain in right hip; 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; CHENCHO positive; Chronic pain of both knees; Bilateral hand pain Start: 03-05-2023 Telephone encounter Coleman Brower [facility] Start: 03-02-2023 Ezequile Pineda MD Work Phone: Rheumatology Comment on above: Refill Request Start: 02-28-2023 End: 02-28-2023 ambulatory Melinda Verduzco Other [facility] Other Start: 02-28-2023 Postop follow up vis it related to original px Melinda Verduzco [facility] Start: 02-16-2023 End: 02-16-2023 ambulatory Sarai Gibson II Other [facility] Other Start: 02-16-2023 Telephone encounter Sarai Gibson II [facility] Start: 02-13-2023 Telephone encounter Coleman Brower [facility] Start: 02-13-2023 End: 02-13-2023 Admission to same day surgery center DO Coleman Brower Work Phone: [facility] Start: 02-13-2023 End: 02-13-2023 ambulatory DO Coleman Brower Work Phone: [facility] Work Phone: Start: 02-12-2023 End: 02-12-2023 ambulatory Sukhjinder Montesinos Other [facility] Other Start: 02-12-2023 Telephone encounter Sukhjinder Montesinos [facility] Start: 02-06-2023 End: 02-06-2023 ambulatory Sarai Gibson II Other [facility] Other Start: 02-06-2023 Telephone encounter Sarai Gibson II [facility] Start: 02-02-2023 (Prolonged) Prolonge d Services Sarai Andrea II [facility] Start: 02-02-2023 End: 02-02-2023 ambulatory Sarai Gibson II Other [facility] Other Start: 01-31-2023 End: 01-31-2023 ambulatory Sarai Andrea II Other [facility] Other Start: 01-31-2023 Patient encounter procedure Sarai Mendez II [facility] Start: 01-26-2023 End: 01-26-2023 ambulatory DO Coleman Brower Work Phone: [facility] Work Phone: Start: 01-26-2023 End: 01-26-2023 Patient encounter procedure DO Coleman Brower Work Phone: [facility] Work Phone: Start: 01-24-2023 End: 01-24-2023 ambulatory Coleman Brower Other [facility] Other Start: 01-24-2023 Office outpatient vi sit 15 minutes Coleman Brower [facility] Start: 01-10-2023 Telephone encounter Heladio alvarado MD Work Phone: Rheumatology Comment on above: Results Start: 01-05-2023 End: 01-05-2023 ambulatory COLEMAN BROWER Facility:[facility] Start: 01-05-2023 End: 01-05-2023 Patient encounter procedure [...] 01-02-2023 End: 01-02-2023 ambulatory Coleman Brower Other [facility] Other Start: 01-02-2023 Encounter for other preprocedural examination Coleman Brower [facility] Start: 01-02-2023 Office outpatient vi sit 25 minutes Coleman Brower [facility] Start: 12-26-2022 End: 12-26-2022 ambulatory Melinda Verduzco Other [facility] Other Start: 12-26-2022 Office outpatient vi sit 15 minutes Melinda Verduzco [facility] Start: 12-20-2022 End: 12-20-2022 ambulatory Coleman Brower Other [facility] Other Start: 12-20-2022 Telephone encounter Coleman Brower [facility] Start: 12-04-2022 End: 12-04-2022 ambulatory Coleman Brower Other [facility] Other Start: 12-04-2022 Telephone encounter Coleman Brower [facility] Start: 11-23-2022 End: 11-23-2022 ambulatory Coleman Brower Other [facility] Other Start: 11-23-2022 Telephone encounter Coleman Brower [facility] Start: 11-22-2022 End: 11-22-2022 ambulatory Sarai Mendez II Other [facility] Other Start: 11-22-2022 Telephone encounter Sarai Andrea II [facility] Start: 11-21-2022 End: 11-21-2022 ambulatory Melinda Verduzco Other [facility] Other Start: 11-21-2022 Office outpatient vi sit 15 minutes Melinda Verduzco [facility] Start: 11-13-2022 End: 11-13-2022 Patient encounter procedure DO Coleman Brower Work Phone: [facility] Work Phone: Start: 11-13-2022 End: 11-13-2022 ambulatory DO Coleman Inocente Work Phone: [facility] Work Phone: Start: 11-06-2022 End: 11-06-2022 ambulatory Coleman Brower Other [facility] Other Start: 11-06-2022 Telephone encounter Coleman ESTRADA [facility] Start: 11-01-2022 (Procedure) Short Jonathan Samano [facility] Start: 11-01-2022 End: 11-01-2022 ambulatory Jonathan Samano Other [facility] Other Start: 10-26-2022 End: 10-26-2022 ambulatory DO Coleman Brower Work Phone: [facility] Work Phone: Start: 10-26-2022 End: 10-26-2022 Patient encounter procedure DO Coleman nIocente Work Phone: [facility] Start: 10-25-2022 End: 10-25-2022 ambulatory Coleman Brower Other [facility] Other Start: 10-25-2022 Office outpatient vi sit 15 minutes Coleman Inocente [facility] Start: 10-11-2022 End: 10-11-2022 Emergency department patient visit DO Coleman Inocente Work Phone: [facility] Work Phone: Start: 10-05-2022 End: 10-05-2022 ambulatory Sarai Mendez II Other [facility] Other Start: 10-05-2022 Telephone encounter Sarai Mendez II [facility] Start: 10-04-2022 End: 10-04-2022 ambulatory Coleman Brower Other [facility] Other Start: 10-04-2022 Telephone encounter Coleman Brower [facility] Start: 10-03-2022 End: 10-03-2022 ambulatory Coleman Brower Other [facility] Other Start: 10-03-2022 Office outpatient vi sit 15 minutes Coleman Brower [facility] Start: 10-02-2022 Telephone encounter Jonathan [facility] Start: 10-02-2022 End: 10-02-2022 ambulatory DO Coleman Brower Work Phone: [facility] Work Phone: Start: 10-02-2022 End: 10-02-2022 Patient encounter procedure DO Coleman Brower Work Phone: [facility] [address] Work Phone: Start: 09-27-2022 End: 09-27-2022 ambulatory Coleman Brower Other [facility] Other Start: 09-27-2022 Telephone encounter Coleman ESTRADA [facility] Start: 08-29-[address] COLEMAN BROWER Facili ty:[facility] Start: 08-09-2022 End: 08-09-2022 ambulatory Coleman Brower Other [facility] Other Start: 08-09-2022 Office outpatient vi sit 15 minutes Coleman Brower [facility] Start: 08-07-2022 End: 08-07-2022 ambulatory Jonathan Samano Other [facility] Other Start: 08-07-2022 Office outpatient vi sit 15 minutes Jonathan Samano [facility] [place] Start: 08-02-2022 End: 08-02-2022 ambulatory DO Coleman Brower Work Phone: [facility] Work Phone: Start: 08-02-2022 End: 08-02-2022 Patient encounter procedure DO Coleman Brower Work Phone: [facility] Start: 08-01-2022 End: 08-01-2022 ambulatory Coleman Borwer Other [facility] Other Start: 08-01-2022 Telephone encounter Coleman Aguillon [facility] Start: 07-31-2022 (Procedure) Short Jonathan Samano [facility] Start: 07-31-2022 End: 08-01-[address] COLEMAN BROWER [facility] [email or web address] Other Start: 07-31-2022 Telephone encounter Jonathan [facility] [place] Start: 07-29-2022 End: 07-30-[address] COLEMAN BROWER Facility:[facility] Start: 07-28-2022 End: 07-28-2022 ambulatory Coleman Brower Other [facility] Other Start: 07-28-2022 Office outpatient vi sit 25 minutes Coleman Brower [facility] Start: 07-04-2022 End: 07-04-2022 ambulatory Jonathan Shrestha Other [facility] Other Start: 07-04-2022 Office outpatient vi sit 25 minutes Jonathan hSrestha [facility] Start: 07-03-2022 End: 07-03-2022 ambulatory Melinda Verduzco Other [facility] Other Start: 07-03-2022 Telephone encounter Melinda Verduzco [facility] Start: 06-29-2022 End: 06-29-2022 ambulatory DO Coleman Inocente Work Phone: [facility] Work Phone: Start: 06-29-2022 End: 06-29-2022 Patient encounter procedure DO Coleman Inocente Work Phone: [facility] Work Phone: Start: 06-09-2022 End: 06-09-2022 ambulatory Coleman Brower Other [facility] Other Start: 06-09-2022 Telephone encounter Coleman Aguillon [facility] Start: 06-05-2022 End: 06-05-2022 ambulatory Jonathan Vieiraer Other [facility] Other Start: 06-05-2022 Office outpatient vi sit 15 minutes Jonathan Vieiraer [facility] Start: 05-29-2022 End: 05-29-2022 ambulatory Coleman Brower Other [facility] Other Start: 05-29-2022 Office outpatient vi sit 10 minutes Coleman Brower [facility] Start: 05-23-2022 End: 05-23-2022 ambulatory Coleman Brower Other [facility] Other Start: 05-23-2022 Office outpatient vi sit 15 minutes Coleman Brower [facility] Start: 05-23-2022 Telephone encounter Coleman Brower [facility] Start: 05-22-2022 End: 05-22-2022 Emergency department patient visit DO Coleman Brower Work Phone: [facility] Work Phone: Start: 05-01-2022 (Procedure) Binta Samano [facility] Start: 05-01-2022 End: 05-01-2022 ambulatory Jonathan Samano Other [facility] Other Start: 04-24-2022 (Procedure) Binta Samano [facility] Start: 04-24-2022 End: 04-24-2022 ambulatory Jonathan Samano Other [facility] Other Start: 04-12-2022 Office outpatient vi sit 25 minutes Jonathan Vieiraer [facility] Start: 04-12-2022 End: 04-12-2022 ambulatory DO Coleman Brower Work Phone: [facility] Work Phone: Start: 04-12-2022 End: 04-12-2022 Patient encounter procedure DO Coleman Brower Work Phone: [facility] Start: 03-20-2022 (Procedure) Binta Samano [facility] Start: 03-20-2022 End: 03-20-2022 ambulatory Jonathan Samano Other [facility] Other Start: 03-08-2022 End: 03-08-2022 ambulatory Jonathan Darielrashard Other [facility] Other Start: 03-08-2022 Office outpatient vi sit 25 minutes Jonathan Samano [facility] Start: 02-22-2022 (Procedure) Binta Samano [facility] Start: 02-22-2022 End: 02-22-2022 ambulatory Jonathan Vieirarashard Other [facility] Other Start: 02-15-2022 Office outpatient ne w 45 minutes Chio Nichole [facility] Start: 02-15-2022 End: 02-15-2022 ambulatory DO Coleman Brower Work Phone: [facility] Work Phone: Start: 02-15-2022 End: 02-15-2022 Patient encounter procedure DO Coleman Brower Work Phone: [facility] Start: 02-13-2022 End: 02-13-2022 ambulatory Jonathan Samano Other [facility] Other Start: 02-13-2022 Office outpatient vi sit 25 minutes Jonathan Samano [facility] Start: 12-26-2021 End: 12-26-2021 Patient encounter procedure DO Coleman Brower Work Phone: [facility] Start: 11-30-2021 End: 12-21-[address] COLEMAN BROWER Facility: Start: 11-28-2021 Pre-procedure evaluation check Jonathan Samano Other [facility] Other Start: 09-28-2021 End: 09-28-2021 ambulatory Sarai Andrea II Other [facility] Other Start: 09-28-2021 Postop follow up vis it related to original px Sarai Gibson II [facility] Start: 09-28-2021 End: 09-28-2021 Patient encounter procedure DO Coleman [employer] Work Phone: [facility] Start: 09-12-2021 End: 09-12-2021 ambulatory Melinda Verduzco Other [facility] Other Start: 09-12-2021 Office outpatient vi sit 15 minutes Melinda Verduzco [facility] Start: 08-17-2021 (Post-Op) Post-Op Sarai Gibson II [facility] Start: 08-17-2021 End: 08-17-2021 ambulatory Sarai Gibson II Other [facility] Other Start: 07-20-2021 (Post-Op) Post-Op Sarai Andrea II [facility] Start: 07-20-2021 End: 07-20-2021 ambulatory Sarai Andrea II Other [facility] Other Start: 06-24-2021 (Prolonged) Prolonge d Services Sarai Gibson II [facility] Start: 06-24-2021 End: 06-24-2021 ambulatory Sarai Gibson II Other [facility] Other Start: 06-17-2021 End: 06-17-2021 ambulatory Sarai Gibson II Other [facility] Other Start: 06-17-2021 Office outpatient vi sit 25 minutes Sarai Gibson II [facility] Start: 05-27-2021 Adult health examination Jonathan Samano Other [facility] Other Start: 03-25-2021 End: 03-25-2021 ambulatory Sarai Mendez II Other [facility] Other Start: 03-25-2021 Telephone encounter Sarai Mendez II [facility] Start: 03-24-2021 End: 03-24-2021 ambulatory Jonathan Samano Other [facility] Other Start: 03-24-2021 Telephone encounter Jonathan Darielrashard ESTRADA [facility] Start: 02-22-2021 End: 02-22-2021 ambulatory Jonathan Samano Other [facility] Other Start: 02-22-2021 Office outpatient vi sit 25 minutes Jonathan Darielrashard [facility] Start: 02-15-2021 (Procedure) Short Jonathan Samano [facility] Start: 02-15-2021 End: 02-15-2021 ambulatory Jonathan Samano Other [facility] Other Start: 01-20-2021 Telephone encounter Jonathan Aguillon [facility] Start: 01-05-2021 Office outpatient vi sit 15 minutes Jonathan Darielrashard [facility] Start: 06-01-2009 ambulatory Genie rosas MD Work Phone: Radiology Start: 06-01-2009 End: 06-01-2009 Patient encounter procedure Genie Hdez MD Work Phone: [facility] Procedures Date Procedure Procedure Detail Performing Clinician Start: 12-31-2023 Screening colonoscopy D O [facility] Work Phone: Start: 08-30-2023 CT angiography of ne ck vessels DO [facility] Work Phone: Start: 08-30-2023 Computed tomography of abdomen and pelvis with contrast DO [facility] Work Phone: Start: 08-30-2023 CT angiography of head DO [facility] Work Phone: Start: 08-30-2023 CT of head without contrast DO Coleman [employer] Work Phone: Start: 08-30-2023 Plain chest X-ray DO Be njamin [employer] Work Phone: Start: 08-30-2023 Bacterial ID (NA Mul tiplex Assay) DO [facility] Work Phone: Start: 08-30-2023 Blood culture for bacteria, including anaerobic screen DO [facility] Work Phone: Start: 08-30-2023 Respiratory Panel (PCR) DO [facility] Work Phone: Start: 08-30-2023 SARS-CoV-2, Influenz a & RSV (PCR) DO [facility] Work Phone: Start: 08-16-2023 [facility] [place] [facility] Start: 08-16-2023 Ecg routine ecg w/le ast 12 lds w/i&r Antonio Steele MD Work Phone: Start: 07-27-2023 History of coronary artery bypass grafting Status post aorto-coronary artery bypass graft Antonio Steele MD Work Phone: Start: 07-27-2023 ECG [facility] [place] Start: 07-27-2023 Ecg routine ecg w/le ast 12 lds w/i&r Antonio Steele MD Work Phone: Start: 06-28-2023 End: 06-28-2023 Dxa bone density study 1/> sites axial judit Pineda MD Work Phone: Start: 06-04-2023 Follow-up visit Follow-up SARAI VELASCO Start: 05-21-2023 Duplex scan of lower limb veins DO [facility] Work Phone: Start: 05-21-2023 X-ray of left knee DO B enjamin [employer] Work Phone: Start: 05-16-2023 Plain X-ray 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 DO Coleman [employer] Work Phone: Start: 03-29-2023 Plain X-ray 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 DO Coleman Ball Work Phone: Start: 02-13-2023 Plain X-ray 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 DO Coleman Ball Work Phone: Start: 02-13-2023 Total replacement 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 joint DO Coleman [employer] Work Phone: Start: 02-13-2023 Plain X-ray 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 DO Coleman Ball Work Phone: Start: 10-26-2022 Plain X-ray 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 DO Coleman Ball Work Phone: Start: 10-11-2022 CT of head without contrast DO Coleman [employer] Work Phone: Start: 08-02-2022 Plain X-ray of right shoulder DO Coleman [employer] Work Phone: Start: 08-02-2022 Plain X-ray of left hip DO Coleman [employer] Work Phone: Start: 07-29-[address] TABARES [employer] Comment on above: Performed By: #### [facility] #### [facility] [address] [place] [address] Dr. Tracy Hubbard Start: 06-29-2022 MRI of left shoulder DO Coleman [employer] Work Phone: Start: 05-22-2022 Plain X-ray of left elbow DO [facility] Work Phone: Start: 05-22-2022 Plain X-ray of left shoulder DO Coleman [employer] Work Phone: Start: 04-12-2022 Plain X-ray 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 DO Coleman [employer] Work Phone: Start: 02-15-2022 Plain X-ray of right hand DO Coleman [employer] Work Phone: Start: 12-26-2021 XR pre/post mri xray DO Coleman [employer] Work Phone: Start: 12-26-2021 MRI of cervical spin e without contrast DO [facility] Work Phone: Start: 09-28-2021 Plain X-ray of left hip DO Coleman [employer] Work Phone: Start: 12-11-2014 Screening for malign ant neoplasm of colon Jonathan Samano Other Start: 12-10-2014 Screening for malign ant neoplasm of prostate Jonathan Samano Other Start: 01-02-2013 Preoperative cardiovascular examination Jonathan Samano Other Start: 06-01-2009 CELL CNT+DIFF SYN FL Mo tony Hdez MD Work Phone: Depression screening Jonathan Samano Other History of operative procedure on knee Jonathan Samano Other Screening for malign ant neoplasm of prostate Jonathan Samano Other Plan of Treatment Date Care Activity Detail Author Start: 05-14-2030 DTaP,Tdap and Td Vac cines (2 - Tdap) DTaP,Tdap and Td Vaccines (2 - Tdap) [facility] Start: 05-14-2030 DTaP/Tdap/Td Vaccine s (2 - Tdap) DTaP/Tdap/Td Vaccines (2 - Tdap) [facility] Start: 05-14-2030 Urine microalbumin profile DTaP,Tdap,Td Vaccine (2 - Tdap) [facility] Start: 07-30-2027 Prostate Cancer Scre ening Discussion Prostate Cancer Screening Discussion [facility] Start: 07-30-2027 Prostate specific an tigen measurement Prostate Cancer Screening Discussion [facility] Start: 06-11-2026 Diabetes Screening Diabetes Screenin g [facility] Start: 01-05-2026 Diabetes Screening Diabetes Screenin g [facility] Start: 06-27-2025 Screening for osteoporosis Bone Density Scan [facility] Start: 06-04-2024 Adult BMI Screening Adult BMI Screen ing [facility] Start: 06-04-2024 Tobacco Screening Tobacco Screening [facility] Start: 04-18-2024 Tobacco Screening Tobacco Screening [facility] Start: 03-17-2024 End: 03-17-2024 Patient encounter procedure 03/17/2024 9:00 AM EST Office Visit Rheumatology [address] [place] [address] Heladio Pineda MD [address] [place] [address] for PMR/osteoarthritis/gou t fu OV 6months Rheumatology Comment on above: for PMR/osteoarthrit is/gout fu OV 6months Start: 01-03-2024 Adult BMI Screening Adult BMI Screen ing [facility] Start: 12-31-2023 [facility] Start: 12-09-2023 Covid-19 Vaccine ( season) Covid-19 Vaccine () [facility] Start: 12-09-2023 COVID-19 Vaccine () COVID-19 Vaccine () [facility] Start: 12-09-2023 Influenza vaccination [facility] Start: 12-03-2023 Patient referral [facility] Work Phone: Start: 10-18-2023 End: 10-18-2023 Patient encounter procedure 10/18/2023 2:40 PM EDT Office Visit [facility] [address] [facility] [address] [place] [address] Antonio Steele MD [address] [facility] [place] [facility] [address] [place] [address] [facility] Start: 10-08-2023 End: 07-08-2024 25-hydroxyvitamin D3 [Mass/volume] in Serum or Plasma VITAMIN D 25 HYDROXY Lab Routine Vitamin D deficiency Expected: 10/08/2023 (Approximate), Expires: 07/08/2024 [facility] Work Phone: Comment on above: Expected: 10/08/2023 (Approximate), Expires: 07/08/2024 Start: 10-08-2023 End: 01-07-2024 Urate [Mass/volume] in Serum or Plasma URIC ACID Lab Routine Hyperuricemia Idiopathic chronic gout of multiple sites without tophus Expected: 10/08/2023 (Approximate), Expires: 01/07/2024 [facility] [place] Work Phone: Comment on above: Expected: 10/08/2023 (Approximate), Expires: 01/07/2024 Start: 10-03-2023 End: 10-03-2023 Patient encounter procedure 10/03/2023 9:30 AM EDT Office Visit [facility] [address] [place] [address] Travis Lucas MD [address] [place] [address] [facility] Start: 09-01-2023 [facility] Start: 08-30-2023 [facility] Start: 08-30-2023 Respiratory pathogen s DNA and RNA panel - Nasopharynx by ROSIE with non-probe detection [facility] Start: 08-30-2023 Hospital admission [facility] Start: 08-30-2023 [facility] Start: 08-30-2023 Bacteria identified in Blood by Culture Blood Culture [facility] Start: 08-30-2023 Blood culture for bacteria, including anaerobic screen Blood Culture [facility] Start: 08-16-2023 End: 08-16-2023 Professional / ancillary services management 08/16/2023 10:00 AM EDT Ancillary Procedure [facility] [address] [place] [address] [facility] Start: 08-10-2023 End: 07-26-2024 ECG 12 Lead ECG 12 Lead ECG Routine 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 (Multi) Expected: 08/10/2023 (Approximate), Expires: 07/26/[address] [facility] Work Phone: Comment on above: Expected: 08/10/2023 (Approximate), Expires: 07/26/2024 Start: 08-08-2023 End: 07-08-2024 C reactive protein [Mass/volume] in Serum or Plasma C-REACTIVE PROTEIN (CRP) Lab Routine Elevated sed rate Elevated C-reactive protein (CRP) Expected: 08/08/2023 (Approximate), Expires: 07/08/2024 [facility] Work Phone: Comment on above: Expected: 08/08/2023 (Approximate), Expires: 07/08/2024 Start: 08-08-2023 End: 07-08-2024 Erythrocyte sedimentation rate SED RATE WESTERGREN Lab Routine Elevated sed rate Elevated C-reactive protein (CRP) Expected: 08/08/2023 (Approximate), Expires: 07/08/2024 [facility] Work Phone: Comment on above: Expected: 08/08/2023 (Approximate), Expires: 07/08/2024 Start: 08-02-2023 [facility] Start: 07-27-2023 End: 07-26-2025 Cardioversion External Cardioversion External Cardiac Services Routine 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 (Multi) detention current use of anticoagulant therapy Expected: 07/27/2023 (Approximate), Expires: 07/26/2025 [facility] Service Area Work Phone: Comment on above: Expected: 07/27/2023 (Approximate), Expires: 07/26/2025 Start: 06-14-2023 End: 06-14-2023 Patient encounter procedure 06/14/2023 1:00 PM EST Appointment [facility] [address] [place] [id number] Chhaya Whatley MD [address], [place] [id number] [facility] Start: 06-04-2023 End: 06-04-2023 Patient encounter procedure 06/04/2023 2:15 PM EST Office Visit [facility] [address] [place] [address] Sarai Velasco MD [address] [place], [place] [id number] [facility] Start: 05-21-2023 Duplex scan of lower limb veins US venous duplex LE BI [facility] Start: 04-12-2023 End: 01-11-2024 25-hydroxyvitamin D3 [Mass/volume] in Serum or Plasma VITAMIN D 25 HYDROXY Lab Routine Vitamin D deficiency Expected: 04/12/2023 (Approximate), Expires: 01/11/2024 [facility] [place] [facility] Work Phone: Comment on above: Expected: 04/12/2023 (Approximate), Expires: 01/11/2024 Start: 04-12-2023 End: 01-11-2024 Cobalamin (Vitamin B12) [Mass/volume] in Serum or Plasma VITAMIN B12 BLOOD Lab Routine Vitamin B12 deficiency Expected: 04/12/2023 (Approximate), Expires: 01/11/2024 [facility] [place] Work Phone: Comment on above: Expected: 04/12/2023 (Approximate), Expires: 01/11/2024 Start: 04-09-2023 Behavioral Health Screening Behavioral Health Screening [facility] Start: 04-09-2023 Depression Assessment Depression Ass essment [facility] Start: 04-06-2023 End: 03-07-2024 C reactive protein [Mass/volume] in Serum or Plasma C-REACTIVE PROTEIN (CRP) Lab Routine PMR (polymyalgia rheumatica) (HCC) Elevated sed rate Elevated C-reactive protein (CRP) Expected: 04/06/2023 (Approximate), Expires: 03/07/2024 [facility] Work Phone: Comment on above: Expected: 04/06/2023 (Approximate), Expires: 03/07/2024 Start: 04-06-2023 End: 03-07-2024 Erythrocyte sedimentation rate SED RATE WESTERGREN Lab Routine PMR (polymyalgia rheumatica) (HCC) Elevated sed rate Elevated C-reactive protein (CRP) Expected: 04/06/2023 (Approximate), Expires: 03/07/2024 [facility] Work Phone: Comment on above: Expected: 04/06/2023 (Approximate), Expires: 03/07/2024 Start: 02-13-2023 End: 02-13-2023 [facility] Start: 02-13-2023 Physical therapy procedure [facility] Start: 02-10-2023 End: 01-11-2024 C reactive protein [Mass/volume] in Serum or Plasma C-REACTIVE PROTEIN (CRP) Lab Routine Elevated sed rate Elevated C-reactive protein (CRP) Expected: 02/10/2023 (Approximate), Expires: 01/11/2024 [facility] Work Phone: Comment on above: Expected: 02/10/2023 (Approximate), Expires: 01/11/2024 Start: 02-10-2023 End: 01-11-2024 Erythrocyte sedimentation rate SED RATE WESTERGREN Lab Routine Elevated sed rate Elevated C-reactive protein (CRP) Expected: 02/10/2023 (Approximate), Expires: 01/11/2024 [facility] [place] [facility] Work Phone: Comment on above: Expected: 02/10/2023 (Approximate), Expires: 01/11/2024 Start: 01-29-2023 [facility] Start: 01-26-2023 [facility] Start: 01-05-2023 End: 01-06-2024 25-hydroxyvitamin D3 [Mass/volume] in Serum or Plasma [facility] [place] [facility] Work Phone: Comment on above: Expected: 01/05/2023 (Approximate), Expires: 01/06/2024 Start: 01-05-2023 End: 03-07-2023 Aldolase [Enzymatic activity/volume] in Serum or Plasma [facility] [place] Work Phone: Comment on above: Expected: 01/05/2023 (Approximate), Expires: 03/07/2023 Start: 01-05-2023 End: 01-06-2024 CHENCHO BY IFA WITH REFLEX [facility] [place] Work Phone: Comment on above: Expected: 01/05/2023 (Approximate), Expires: 01/06/2024 Start: 01-05-2023 End: 01-06-2024 BLOOD TB SCREEN [facility] [place] Work Phone: Comment on above: Expected: 01/05/2023 (Approximate), Expires: 01/06/2024 Start: 01-05-2023 End: 01-06-2024 Chronic hepatitis differentiation between hepatitis B and C virus panel - Serum or Plasma [facility] [place] Work Phone: Comment on above: Expected: 01/05/2023 (Approximate), Expires: 01/06/2024 Start: 01-05-2023 End: 01-06-2024 Cyclic citrullinated peptide IgG Ab [Units/volume] in Serum or Plasma [facility] [place] Work Phone: Comment on above: Expected: 01/05/2023 (Approximate), Expires: 01/06/2024 Start: 12-08-2022 Covid-19 Vaccine ( season) Covid-19 Vaccine () [facility] Start: 12-08-2022 Influenza vaccination [facility] Start: 10-02-2022 Hemolytic complement CH50 level [facility] Start: 10-02-2022 [facility] Start: 08-02-2022 Plain X-ray of right shoulder XR shoulder RT min 2V* [facility] Start: 08-02-2022 Plain X-ray of left hip XR hip LT min 2V(w/wo pelvis)* [facility] Start: 04-09-2022 Depression Assessment Depression Ass essment [facility] Start: 06-06-2021 Covid-19 Vaccine (4 - Pfizer series) Covid-19 Vaccine (4 - Pfizer series) [facility] Start: 12-08-2020 Influenza vaccination INFLUENZ A (Season Ended) [facility] Start: 2019 RSV patient s and/or patients aged 60+ years (1 - 1-dose 60+ series) RSV patients and/or patients aged 60+ years (1 - 1-dose 60+ series) [facility] Start: 2019 RSV Vaccine (1 - 1-d ose 60+ series) RSV Vaccine (1 - 1-dose 60+ series) [facility] Start: 10-29-2016 DIABETES SCREEN DIABETES SCREEN [facility] Start: 12-16-2014 PROSTATE CANCER SCRE ENING DISCUSSION PROSTATE CANCER SCREENING DISCUSSION [facility] Start: 12-16-2009 Administration of varicella zoster vaccine Zoster (Shingles) Vaccine (1 of 2) [facility] Start: 12-16-2009 Screening for malign ant neoplasm of colon [facility] Start: 12-16-2009 SHINGRIX VACCINE (1 of 2) TORRES GRIX VACCINE (1 of 2) [facility] Start: 12-16-2009 Zoster Vaccines (1 of 2) Zoste r Vaccines (1 of 2) [facility] Start: 12-16-2004 Cologuard (FIT-DNA) Cologuard (FIT-D NA) [facility] Start: 12-16-2004 Colonoscopy Colonoscopy [facility] Start: 12-16-2004 Colorectal Cancer Screening Colorectal Cancer Screening [facility] Start: 12-16-[address] COLONOGRAPHY [facility] Start: 12-16-2004 Fecal Occult Blood Fecal Occult Bloo d [facility] Start: 12-16-2004 Screening for malign ant neoplasm of colon [facility] Start: 12-16-2004 SIGMOIDOSCOPY SIGMOIDOSCOPY [facility] Start: 12-16-1994 Lipid 1996 panel - S ursula or Plasma Lipid Screening [facility] Start: 12-16-1994 Lipid panel [facility] Start: 12-16-1994 LIPID SCREEN LIPID SCREEN [facility] Start: 12-16-1978 Urine microalbumin profile [facility] Start: 12-16-1977 Adult BMI Follow Up Plan Adult BMI Follow Up Plan [facility] Start: 12-16-1977 Annual PCP Team Respiratory Medicine Physician miriam Disease Visit Annual PCP Team Chronic Disease Visit [facility] Start: 12-16-1977 Anxiety Screening Anxiety Screening [facility] Start: 12-16-1977 Depression Screening Depression Scre ening [facility] Start: 12-16-1977 Diabetes mellitus screening Diabetes Screening [facility] Start: 12-16-1977 Hepatitis B surface antibody level LDL Cholesterol [facility] Start: 12-16-1977 Hepatitis C screening Hepatitis C Sc reening [facility] Start: 12-16-1977 HIV SCREENING HIV SCREENING [facility] Start: 12-16-1977 HIV screening HIV Screening [facility] Start: 1971 Adult depression screening assessment DEPRESSION SCREENING [facility] Start: 1971 COVID-19 VACCINE (1) COVID-19 VACCIN E (1) [facility] Start: 12-16-1965 Pneumococcal Vaccine : Pediatrics (0 to 5 Years) and At-Risk Patients (6 to 64 Years) (1 of 2 - PCV) Pneumococcal Vaccine: Pediatrics (0 to 5 Years) and At-Risk Patients (6 to 64 Years) (1 of 2 - PCV) [facility] Start: 12-16-1960 MMR Vaccines (1 of 1 - Standard series) MMR Vaccines (1 of 1 - Standard series) [facility] Start: 1959 HIV screening HIV Screening [facility] Start: 1959 Lipid panel Lipid Panel [facility] Start: 1959 Medicare Annual Well ness Visit Medicare Annual Wellness Visit (AWV) [facility] Start: 1959 Screening for malign ant neoplasm of colon [facility] Start: 1959 Thyroid stimulating hormone measurement TSH Level [facility] Complement C3 [Mass/volume] in Serum or Plasma [facility] Complement C4 [Mass/volume] in Serum or Plasma [facility] Comprehensive metabo lic 2000 panel - Serum or Plasma [facility] CT Abdomen and Pelvi s W contrast IV [facility] End: 02-04-2024 DXA-AXIAL SKELETON DXA-AXIAL SKELETON Radiology Routine Steroid-induced osteoporosis 1 Occurrences starting 01/05/2023 until 02/04/2024 [facility] Work Phone: Comment on above: 1 Occurrences starti ng 01/05/2023 until 02/04/2024 End: 02-04-2024 DXA-FOREARM SKELETON DXA-FOREARM SKELETON Radiology Routine Steroid-induced osteoporosis 1 Occurrences starting 01/05/2023 until 02/04/2024 [facility] Work Phone: Comment on above: 1 Occurrences starti ng 01/05/2023 until 02/04/2024 Patient Education [facility] Work Phone: Patient referral [facility] Work Phone: Corona extractable nu clear Ab [Units/volume] in Serum [facility] SYNOVIAL FLUID CRYST ALS B/O SYNOVIAL FLUID CRYSTALS B/O Lab Routine Swelling of Knee Joint Ordered: 06/01/2009 [facility] Comment on above: Ordered: 06/01/2009 [facility] Immunizations Immunization Date Immunization Notes Care Provider Cristhian read 04-05-2023 influenza, injectabl e, quadrivalent, preservative free Coleman Ball Other [facility] 04-05-2023 influenza virus vaccine, unspecified formulation Heladio Pineda MD Work Phone: [facility] 02-06-2022 influenza, injectabl e, quadrivalent, contains preservative Sarai Andrea II Other [facility] [employer] Other 02-06-2022 influenza virus vaccine, split virus (incl. purified surface antigen) Jonathan Samano Other [facility] 02-06-2022 influenza, injectabl e, quadrivalent, preservative free DO Coleman Brower Work Phone: [facility] 02-06-2022 influenza virus vaccine, unspecified formulation Heladio Pineda MD Work Phone: [facility] 04-11-2021 COVID-19 mRNA, Comirnaty (Pfizer) DO Coleman Ball Work Phone: [facility] 01-18-2021 influenza virus vaccine, split virus (incl. purified surface antigen) Jonathan Samano Other [facility] [employer] Other 01-18-2021 Seasonal trivalent influenza vaccine, adjuvanted, preservative free [facility] 01-18-2021 influenza virus vaccine, unspecified formulation Heladio Pineda MD Work Phone: [facility] 06-25-2020 COVID-19 mRNA, Comirnaty (Pfizer) DO Coleman Ball Work Phone: [facility] 06-15-2020 COVID-19 mRNA, Comirnaty (Pfizer) DO Coleman Ball Work Phone: [facility] 06-04-2020 COVID-19 mRNA, Comirnaty (Pfizer) DO Coleman Ball Work Phone: [facility] 05-14-2020 diphtheria, tetanus toxoids and acellular pertussis vaccine, unspecified formulation Jonathan Vieirarashard Other [facility] 05-07-2020 Kenalog -40 mg Jonathan Vieiraer Other [facility] Other 01-13-2020 influenza virus vaccine, split virus (incl. purified surface antigen) Jonathan Darielrashard Other [facility] 01-13-2020 influenza virus vaccine, unspecified formulation DO [facility] [facility] Work Phone: [facility] 11-03-2019 Kenalog -40 mg Jonathan Darielrashard Other [facility] Other 05-19-2019 Kenalog -40 mg Jonathan Darielrashard Other [facility] Other 01-02-2019 influenza virus vaccine, split virus (incl. purified surface antigen) Jonathan Darielrashard Other [facility] 01-02-2019 influenza virus vaccine, unspecified formulation DO [facility] [facility] Work Phone: [facility] 04-08-2018 Kenalog -40 mg Jonathan Darielrashard Other [facility] Other 01-21-2018 influenza virus vaccine, split virus (incl. purified surface antigen) Jonathan Darielrashard Other [facility] Other 01-21-2018 influenza virus vaccine, unspecified formulation DO [facility] [facility] Work Phone: [facility] 01-21-2018 Influenza, injectabl e, Madin Nolvia Canine Kidney, quadrivalent with preservative [facility] 04-16-2017 Kenalog -40 mg Jonathan Samano Other [employer] Other 05-23-2016 Kenalog -40 mg Jonathan Samano Other [employer] Other Payers Date Payer Category Payer Medicare [id number] 2023 Self-pay [id number] 2022 Medicare [id number] 2022 Medicare HMO [employer] MED[employer] [id number] 1959 Unknown [id number] 2.16.840.1.814003.3.579.2. 593 1959 Unknown [id number] 2.16.840.1.179349.3.579.2. 593 1959 Unknown [id number] 2.16.840.1.314897.3.579.2. 593 1959 Unknown [id number] 2.16.840.1.930878.3.579.2. 593 1959 Unknown [id number] 2.16.840.1.682454.3.579.2. 1286 1959 Unknown [id number] 2.16.840.1.096690.3.579.2. 1286 1959 Unknown [id number] 2.16.840.1.414096.3.579.2. 1286 1959 Unknown [id number] 2.16.840.1.406399.3.579.2. 128 1959 Unknown [id number] 2.16.840.1.876931.3.579.2. 1259 1959 Unknown [id number] 2.16.840.1.785896.3.579.2. 1246 1959 Unknown [id number] 2.16.840.1.447319.3.579.2. 124 1959 Unknown [id number] 2.16.840.1.706770.3.579.2. 124 1959 Unknown [id number] 2.16.840.1.106187.3.579.2. 1244 1959 Unknown [id number] 2.16.840.1.377088.3.579.2. 124 1959 Unknown [id number] 2.16.840.1.105882.3.579.2. 1243 1959 Unknown [id number] 2.16.840.1.998818.3.579.2. 124 1959 Unknown [id number] 2.16.840.1.451889.3.579.2. 1243 1959 Medicare [id number] 2.16.840.1.902379.19 1959 Private Health Insurance [facility] [id number] Medicare Medicare [id number] Medicare [place] [facility] PFFS [id number] Unknown [place] BC/BS [id number] Unknown [id number] 2.16.840.1.220833.3.579.2. 531 Unknown [id number] 2.16.840.1.140532.3.579.2. 531 Unknown [id number] 2.16.840.1.559078.3.579.2. 531 Unknown [id number] 2.16.840.1.087472.3.579.2. 531 Unknown [id number] 2.16.840.1.238906.3.579.2. 531 Unknown [id number] 2..840.1.989816.3.579.2. 531 Unknown [id number] 2.16840.1.605446.3.579.2. 531 Unknown [id number] 2.16840.1.451820.3.579.2. 531 Unknown [id number] 2.840.1.955007.3.579.2. 531 Social History Date Type Detail Facility Tobacco smoking stat us DEIS Unknown if ever smoked [facility] Start: 1960 Sex Assigned At Not on file [facility] Start: 05-20-2020 End: 01-05-2023 Sex Assigned At [facility] Start: 07-04-2021 End: 01-02-2023 Tobacco smoking status NHIS Never smoked tobacco (finding) [facility] Start: 1960 Sex Assigned At Male [facility] Start: 01-05-2023 End: 06-04-2023 Alcohol intake Current drinker of alcohol (finding) [facility] Start: 05-20-2020 End: 01-05-2023 Alcohol intake [facility] Sys [employer] National Score (1-100), lower number is lower risk 91 [facility] Start: 01-02-2023 End: 07-27-2023 Tobacco use and exposure Smokeless tobacco non-user [facility] Start: 07-17-2023 End: 08-16-2023 Exposure to SARS-CoV-2 (event) Not sure [facility] Start: 11-12-2014 End: 02-18-2024 Sex Male (finding) [facility] Medical Equipment Procedure Code Equipment Code Equipment Origin al Text Equipment Identifier Dates Arthroplasty, hip, total, anterior approach Acetabular shell ([id number] FDA Start: 07-04-2021 Arthroplasty, hip, total, anterior approach Ceramic femoral head prosthesis ()[id number] FDA Start: 07-04-2021 Arthroplasty, hip, total, anterior approach Coated hip femur prosthesis, modular [id number] FDA Start: 07-04-2021 Arthroplasty, hip, total, anterior approach Non-constrained polyethylene acetabular liner ()[id number] FDA Start: 07-04-2021 Arthroplasty, hip, total, anterior approach Acetabular shell ()[id number] FDA Start: 02-13-2023 Arthroplasty, hip, total, anterior approach Ceramic femoral head prosthesis ()[id number] FDA Start: 02-13-2023 Arthroplasty, hip, total, anterior approach Coated hip femur prosthesis, modular ()[id number] FDA Start: 02-13-2023 Arthroplasty, hip, total, anterior approach Non-constrained polyethylene acetabular liner ()[id number] FDA Start: 02-13-2023 Goals Date Patient Goal Desired Activity /State Functional Status Date Assessment Result Facility 09-01-2023 Functional status Patient at Baseline [facility] Work Phone: 08-30-2023 Functional status Disability Sta tus Patient at Baseline [facility] Work Phone: Mental Status Date Assessment Result Facility 09-01-2023 Cognitive function Cognitive Sta [facility] Patient at Baseline [facility] Work Phone: Clinical Notes 01-05-2021 to 04-02-2024 Telephone Encounter - Bert Newman LPN - 04/02/2024 12:37 AM ESTTelephone Encounter - Bert Newman LPN - 04/02/2024 12:37 AM EST Note Date & Type Note Facility 04-02-2024 Miscellaneous Notes Formattin g of this note might be different from the original. Con 06/04/23 Bmp, mag 06/12/23 documented in this encounter [facility] 04-02-2024 Telephone encount er Note Con 06/04/23 Bmp, mag 06/12/23 [facility] 02-12-2024 Evaluation note Diagnosis Onset Date Resolution Primary osteoarthritis, right hand acute February 11 1:35pm Biceps tendonitis on right acute February 17, 2 024 9:37am Rotator cuff syndrome of right shoulder acute February 18, 2024 9:37am Traumatic complete tear of left rotator cuff acute February 17, 2 024 9:37am [facility] Work Phone: 1(570) 832-290409-23-2024 [facility] Tele[facility] encounter Note* Telephone Encounter - Korin Mott - 2023 9:29 AM EDT Called patient LVM regards to completing labs as directed below [facility]09-09-2024 Miscellaneous Notes* Telephone Encounter - Korin Mott - 2023 9:29 AM EDT Called patient LVM regards to completing labs as directed below * Telephone Encounter - Heladio Pineda MD - 12/15/2023 11:34 PM EDT Please call and schedule nonfasting labs this month. Temporary medication refilled Thank you. Patient's request for medication is as follows: Requested Prescriptions Pending Prescriptions Disp Refills methylPREDNISolone (MEDROL) 4 mg 21 tablet 1 Sig: Day 1=6tabs with food, Day 2=5tabs, Day 3=4tabs, Day 4=3tabs, Day 5=2tabs, Day 6=1tab, No NSAIDs on med Prescription(s) as above. Please process accordingly. Heladio Pineda MD * Telephone Encounter - RahDuncanTony henriquezmaria fernandaKAE rosas - 12/14/2023 9:35 AM EDT Images from the original note were not included. Most recent Rheumatology visit: 07/05/2023 (with Heladio Pineda) Last Bone Density on file: 06/28/2023 Rheumatology Care Team: None on file Recent Office Visits - This Specialty 07/05/2023 PMR (polymyalgia rheumatica) ([facility]) Rheumatology Heladio Pineda MD 03/05/2023 PMR (polymyalgia rheumatica) ([facility]) Rheumatology Heladio Pineda MD 01/05/2023 PMR (polymyalgia rheumatica) ([facility]) Rheumatology Heladio Pineda MD Upcoming Rheumatology Appointments - Next 365 Days Visit Type Date Time Department [facility] 03/17/2024 9:00 AM [facility] CBC: None on file in the last 6 months Vitamin D: Latest Ref Rng & Units 01/05/2023 07/05/2023 Vitamin D Vitamin D 25 Hydroxy 31.0 - 80.0 ng/mL 29.6 21.4 LFT: None on file in the last 6 months Hepatic Function: Creatinine: None on file in the last 6 months ESR/CRP: Latest Ref Rng & Units 07/05/2023 09/05/2023 ESR, WSR WSR 0 - 15 mm/hr 15 2 Latest Ref Rng & Units 07/05/2023 09/05/2023 CRP CRP <0.9 mg/dL 0.8 0.8 Uric Acid: Latest Ref Rng & Units 01/05/2023 07/05/2023 Uric Acid Uric Acid 4.0 - 8.1 mg/dL 6.1 7.2 Open Standing (Multiple Instance) Lab Orders None Open Future (Single Instance) Lab Orders Expected Expires Ordered VITAMIN D 25 HYDROXY [SQVITD] 10/08/23 07/08/24 07/09/23 Auth. provider: Heladio Pineda MD Assoc. diagnoses: Vitamin D deficiency URIC ACID [SQURIC] 10/08/23 01/07/24 09/09/23 Auth. provider: Heladio Pineda MD Assoc. diagnoses: Hyperuricemia, Idiopathic chronic gout of multiple sites without tophus * Telephone Encounter - Maryann Prince - 12/13/2023 4:06 PM EDT Patient phones requesting refills as follows: Requested Prescriptions Pending Prescriptions Disp Refills methylPREDNISolone (MEDROL) 4 mg 21 tablet 1 Sig: Day 1=6tabs with food, Day 2=5tabs, Day 3=4tabs, Day 4=3tabs, Day 5=2tabs, Day 6=1tab, No NSAIDs on med Please review and advise. Maryann Ramos documented in this encounterHol[facility]09-[facility] Telephone encounter Note * Telephone Encounter - Heladio Pineda MD - 12/15/2023 11:34 PM EDT Please call and schedule nonfasting labs this month. Temporary medication refilled Thank you. Patient's request for medication is as follows: Requested Prescriptions Pending Prescriptions Disp Refills methylPREDNISolone (MEDROL) 4 mg 21 tablet 1 Sig: Day 1=6tabs with food, Day 2=5tabs, Day 3=4tabs, Day 4=3tabs, Day 5=2tabs, Day 6=1tab, No NSAIDs on med Prescription(s) as above. Please process accordingly. Heladio Pineda MD [facility]09-06-[facility]24 Telephone encounter Note* Telephone Encounter - Ruben Monterroso MA - 12/14/2023 9:35 AM EDT Images from the original note were not included. Most recent Rheumatology visit: 07/05/2023 (with Heladio Pineda) Last Bone Density on file: 06/28/2023 Rheumatology Care Team: None on file Recent Office Visits - This Specialty 07/05/2023 PMR (polymyalgia rheumatica) ([facility]) Rheumatology Heladio Pineda MD 03/05/2023 PMR (polymyalgia rheumatica) ([facility]) Rheumatology Heladio Pineda MD 01/05/2023 PMR (polymyalgia rheumatica) ([facility]) Rheumatology Heladio Pineda MD Upcoming Rheumatology Appointments - Next 365 Days Visit Type Date Time Department [facility] 03/17/2024 9:00 AM [facility] CBC: None on file in the last 6 months Vitamin D: Latest Ref Rng & Units 01/05/2023 07/05/2023 Vitamin D Vitamin D 25 Hydroxy 31.0 - 80.0 ng/mL 29.6 21.4 LFT: None on file in the last 6 months Hepatic Function: Creatinine: None on file in the last 6 months ESR/CRP: Latest Ref Rng & Units 07/05/2023 09/05/2023 ESR, WSR WSR 0 - 15 mm/hr 15 2 Latest Ref Rng & Units 07/05/2023 09/05/2023 CRP CRP <0.9 mg/dL 0.8 0.8 Uric Acid: Latest Ref Rng & Units 01/05/2023 07/05/2023 Uric Acid Uric Acid 4.0 - 8.1 mg/dL 6.1 7.2 Open Standing (Multiple Instance) Lab Orders None Open Future (Single Instance) Lab Orders Expected Expires Ordered VITAMIN D 25 HYDROXY [SQVITD] 10/08/23 07/08/24 07/09/23 Auth. provider: Heladio Pineda MD Assoc. diagnoses: Vitamin D deficiency URIC ACID [SQURIC] 10/08/23 01/07/24 09/09/23 Auth. provider: Heladio Pineda MD Assoc. diagnoses: Hyperuricemia, Idiopathic chronic gout of multiple sites without tophus [facility]09-05-[facility] Telephone encounter Note* Telephone Encounter - Maryann Prince - 12/13/2023 4:06 PM EDT Patient phones requesting refills as follows: Requested Prescriptions Pending Prescriptions Disp Refills methylPREDNISolone (MEDROL) 4 mg 21 tablet 1 Sig: Day 1=6tabs with food, Day 2=5tabs, Day 3=4tabs, Day 4=3tabs, Day 5=2tabs, Day 6=1tab, No NSAIDs on med Please review and advise. Maryann Ramos [facility]06-03-2024 Telephone encounter Note* Telephone Encounter - Precious Hartman MA - 09/10/2023 9:26 AM EDT Pt aware. Patient asked regarding Medrol. He says he is to take until completed. I stated yes. He wants to know if he should continue his other medications. I let him know Dr. Pineda didn't stated anything about any changes to his medication. Precious Hartman MA [facility]06-03-2024 Miscellaneous Notes* Telephone Encounter - Precious Hartman MA - 09/10/2023 9:26 AM EDT Pt aware. Patient asked regarding Medrol. He says he is to take until completed. I stated yes. He wants to know if he should continue his other medications. I let him know Dr. Pineda didn't stated anything about any changes to his medication. Precious Hartman MA * Telephone Encounter - Heladio Pineda MD - 09/09/2023 11:10 AM EDT Please Call patient if MyChart note not read to review results/released to My Chart if tests completed at [facility]: Normal labs and no inflammation.. Recheck nonfasting [...] normal esr 9, crp<0.3; documented in this encounterHolmes [facility]06-02-2024 Telephone encounter Note * Telephone Encounter - Heladio Pineda MD - 09/09/2023 11:10 AM EDT Please Call patient if MyChart note not read to review results/released to My Chart if tests completed at [facility]: Normal labs and no inflammation.. Recheck nonfasting [...] chronic Afib. 03/05/23 normal esr 9, crp<0.3; [facility]05-29-20[facility] Telephone encounter Note* Telephone Encounter - Ruben Monterroso MA - 09/05/2023 2:40 PM EDT Spoke to pt aware of med sent. [facility]05-29-2024 Miscellaneous Notes* Telephone Encounter - Ruben Samuels MA - 09/05/2023 2:40 PM EDT Spoke to pt aware of med sent. * Telephone Encounter - Heladio Pineda MD - 09/05/2023 1:56 PM EDT Please call patient. Thank you for the [...] Heladio Pineda MD * Telephone Encounter - Ruben Monterroso MA - 09/05/2023 10:21 AM EDT Spoke to pt he states he has been having muscle pain lately and will like to take the medrol dose pack for his pain. * Telephone Encounter - Heladio Pineda MD - 09/05/2023 9:12 AM EDT Please call patient Inquire if patient still taking medrol Is he have any pain symptoms, PMR symptoms? Per last note patient was off medrol Thank you. * Telephone Encounter - Ruben Monterroso MA - 09/05/2023 7:58 AM EDT Images from the original note were not included. Most recent Rheumatology visit: 07/05/2023 (with Heladio Pineda) Rheumatology Care Team: None on file Recent Office Visits - This Specialty 07/05/2023 PMR (polymyalgia rheumatica) ([facility]) Rheumatology Heladio Pineda MD 03/05/2023 PMR (polymyalgia rheumatica) ([facility]) Rheumatology Heladio Pineda MD 01/05/2023 PMR (polymyalgia rheumatica) ([facility]) Rheumatology Heladio Pineda MD Upcoming Rheumatology Appointments - Next 365 Days Visit Type Date Time Department [facility] 03/17/2024 9:00 AM [facility] CBC: Latest Ref Rng & Units [...] diagnoses: Vitamin D deficiency documented in this encounterHolmes [facility]05-29-2024 Telephone encounter Note * Telephone Encounter - Heladio Pineda MD - 09/05/2023 1:56 PM EDT Please call patient. Thank you for the [...] above. Please process accordingly. Heladio Pineda MD [facility]05-29-2024 Telephone encounter Note* Telephone Encounter - Ruben Monterroso MA - 09/05/2023 10:21 AM EDT Spoke to pt he states he has been having muscle pain lately and will like to take the medrol dose pack for his pain. [facility]05-29-2024 Telephone encounter Note* Telephone Encounter - Heladio Pineda MD - 09/05/2023 9:12 AM EDT Please call patient Inquire if patient still taking medrol Is he have any pain symptoms, PMR symptoms? Per last note patient was off medrol Thank you. [facility]05-29-2024 Telephone encounter Note* Telephone Encounter - Ruben Monterroso MA - 09/05/2023 7:58 AM EDT Images from the original note were not included. Most recent Rheumatology visit: 07/05/2023 (with Heladio Pineda) Rheumatology Care Team: None on file Recent Office Visits - This Specialty 07/05/2023 PMR (polymyalgia rheumatica) ([facility]) Rheumatology Heladio Pineda MD 03/05/2023 PMR (polymyalgia rheumatica) ([facility]) Rheumatology Heladio Pineda MD 01/05/2023 PMR (polymyalgia rheumatica) ([facility]) Rheumatology Heladio Pineda MD Upcoming Rheumatology Appointments - Next 365 Days Visit Type Date Time Department [facility] 03/17/2024 9:00 AM [facility] CBC: Latest Ref Rng & Units [...] Pineda MD Assoc. diagnoses: Vitamin D deficiency [facility]05-24-2024 Progress note Author Sally Alex [facility] August 31, 2023 3:45pm Note Date/Time August 31, 2023 10:54 am [facility] [address] [place] [address] Hospitalist Progress Note Signed with Elida Patient: Esme Steven MR#: [id number] : 1960 Acct:[id number] Age/Sex: 62 / M Adm Date: 4 Loc: Room: [address] [place] [address] Type: ADM IN Attending Dr: Sally Alex MD Copies to: ~ ADDENDUM1 Patient was personally seen by me on the day of encounter, reviewed his history and performed gomez elements of exam and formulated the plan of care and confirmedthe resident/interns note below. Addendum Documented By: Sally Alex MD 08/31/231544 Addendum Signed By: <Electronically signed by Sally [...] Syringe IV-PUSH 08/30/24 05:59 Not Given [facility] A&P - Hospitalist Assessment/Plan (1) Acute [...] signed by DO RADHA Zavala> 08/31/23 1054 [facility] Work Phone: 1(575) 208-363805-24-2024 History and physical note Author Elliott Talley [facility] August 30, 2023 11:34pm Note Date/Time August 30, 2023 11:04 pm [facility] [address] [place] [address] Hospitalist H&P Signed Patient: Esme Steven MR#: [id number] : 1960 Acct:[id number] Age/Sex: 62 / M Adm Date: 4 Loc: Room: [address] [place] [address] Type: ADM IN Attending Dr: Elliott Talley [...] that which is noted above in [facility] Medical History (Updated 08/30/23 @ 23:33 by [...] % (Auto) 4.4 % (.) 08/30/23 18:20 [place] % (Auto) 2.3 % (.) 08/30/23 18:20 Eos % (Auto) 0.1 % (.) 08/30/23 18:20 Baso % (Auto) 0.8 % (.) 08/30/23 18:20 Nucleat RBC Rel Count 0.0 /100 WBC (0-0.5) 08/30/23 18:20 Neut # (Auto) 13.4 x10E3/uL (1.8-7.7) H 08/30/23 18:20 Lymph # (Auto) 0.6 x10E3/uL (1.00-4.8) L 08/30/23 18:20 [place] # (Auto) 0.3 x10E3/uL (0.0-0.8) 08/30/23 18:20 [...] pH 5.5 (5.0-9.0) 08/30/23 18:45 Ur Specific [place] 1.016 (1.001-1.030) 08/30/23 18:45 Urine Protein Negative [...] pink Documented By: Elliott Talley MD 4 [id number] Signed By: <Electronically signed by Elliott Talley MD> 08/30/23 3044 [facility] Work Phone: 1([phone]) 166-996705-09-2024 History of Present illness Narrative* Ky Navarro MA - 08/16/2023 10:00 AM EDT Patient is here for an EKG visit ordered by Dr. Steele due to atrial fibrillation. Dr. Arce in suite. Patient is here status post cardioversion completed on 08/02/23 . Medication list Updated verbally with patient in office. Denies any cardiac complaints at this time. Discussed with Sarah Jacobs RN prior to discharge. To Dr. Steele for review. 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 BMI 35.0-35.9,adult Scribe Attestation By signing my name below, I Zoatul Smalls LPN , Scribe attest that this documentation has been prepared [...] exam, discussion and plan. documented in this [facility] Work Phone: 1(721) 407-879104-19-2024 Instructions* Patient Instructions* Zo Castro LPN - [...] Provided instructions on exercise. documented in this encounterMer[facility]. [facility] Work Phone: [phone]) 244-738604-01-2024 Miscellaneous Notes* Telephone Encounter - Polly Magana LPN - 07/09/2023 11:57 AM EDT Called and spoke to patient. He is aware of message below from Dr. Pineda. Patient verbalized understanding. * Telephone Encounter - Heladio Pineda MD - 07/09/2023 7:44 AM EDT Please Call patient if MyChart note not read to review results/released to My Chart if tests completed at [facility]: Low vitamin D maybe associated with fatigue/joint/muscle [...] accordingly. Heladio Pineda MD documented in this encounterHolmes [facility]03-28-2024 NoteHNO ID: [id number] Author: HELADIO PINEDA MD Service: ? Author [...] No falls/fx/trauma/illness/oral sores/rash/hairloss/jaw pain/dysphagia/epistaxis (more content not included)...[facility]03-25-2024 Miscellaneous Notes* Telephone Encounter - Korin Mott - 07/02/2023 9:16 AM EDT Called and [...] normal esr 9, crp<0.3; documented in this encounterHolmes [facility]03-07-2024 Miscellaneous Notes* Telephone Encounter - Kamille Rosario RN - 06/14/2023 9:28 AM EST Pt calling in; states he is to have procedure with JBP today but is experiencing fevers, vomiting, diarrhea. EP veterinary surgery technician notified to call pt to cancel and reschedule. * Telephone Encounter - Georgia Harvey LPN - 06/14/2023 9:28 AM EST Called and spoke with pt, pt confirmed N/V/D and fever. Advised pt to call when symptoms resolve and will reschedule Pt stated he did miss Eliquis dose last night and no meds currently d/t vomiting. Will notify JBP [facility]03-[facility] Telephone encounter Note* Telephone Encounter - Kamille Rosario RN - 06/14/2023 9:28 AM EST Pt calling in; states he is to have procedure with JBP today but is experiencing fevers, vomiting, diarrhea. EP veterinary surgery technician notified to call pt to cancel and reschedule. [facility]03-07-[facility] Telephone encounter Note* Telephone Encounter - Georgia Harvey LPN - 06/14/2023 9:28 AM EST Called and spoke with pt, pt confirmed N/V/D and fever. Advised pt to call when symptoms resolve and will reschedule Pt stated he did miss Eliquis dose last night and no meds currently d/t vomiting. Will notify JBP [facility]03-05-2024 Miscellaneous Notes* Telephone Encounter - Bharti Milian RN - 06/12/2023 5:10 PM EST Called patient with JBP's response to start Magnesium Oxide 400 twice a day by mouth. Patient agreeable and wants RX sent to [facility]. Rx sent to sign. Has some at home and will start tonight. tkm ----- Message from Chhaya Whatley MD sent at 06/12/2023 4:40 PM EST ----- Please have patient start taking magnesium oxide 400 mg twice a day. Thank you Dirk documented in this encounterZanesville [facility]03-05-2024 Telephone encounter Note* Telephone Encounter - Bharti Milian RN - 06/12/2023 5:10 PM EST Called patient with JBP's response to start Magnesium Oxide 400 twice a day by mouth. Patient agreeable and wants RX sent to [facility]. Rx sent to sign. Has some at home and will start tonight. tkm ----- Message from Chhaya Whatley MD sent at 06/12/2023 4:40 PM EST ----- Please have patient start taking magnesium oxide 400 mg twice a day. Thank you Dirk [facility]03-04-2024 Miscellaneous Notes* Telephone Encounter - Ambar FigueroaTEMO - 06/11/2023 3:23 PM EST Images from the original note were not included. [facility] Cardiology: Cardioversion or DFT Testing Procedure: Cardioversion Physician: Dr. Dirk Whatley Date/Time of Procedure: 06/13 @ 1 pm Arrival Time: 12 pm Hospital: [facility] - Address: [address] [place] [id number] Registration Location: [place] at Entrance [address], parking lot P3 PRE OP REQUIREMENTS Below MUST be completed prior to your procedure or it may result in delay or cancellation [] Pre op testing: NONE [x] Pre op labs: Draw pre op labs any time between and at any [facility] Lab, no paper orders are [...] 7am Other Instructions: [x] Must have a cat driver as you will be unable to drive following the procedure IMPORTANT INFORMATION Notify the EP Surgery office of any illness, infection or COVID symptoms or a COVID positive resultimmediately at [phone] If you take a blood thinner, unless [...] schedule changes or emergencies at the hospital [facility] currently allows up to two visitors [...] you by the EP Surgery nurses. The [facility] instructions can be incorrect and provide the wrong information about your procedure. If you have any questions or concerns about preparing for your procedure, please call the EP Surgery office at [phone] For additional questions and to schedule any follow up appointments please call the main [facility] Cardiology office at [phone] documented in this encounterBerger HospitalXopik Harbor Beach Community [id number] Telephone encounter Note* Telephone Encounter - Ambar Figueroa LPN - 06/11/2023 3:23 PM EST Images from the original note were not included. [facility] Cardiology: Cardioversion or DFT Testing Procedure: Cardioversion Physician: Dr. Dirk Whatley Date/Time of Procedure: 06/13 @ 1 pm Arrival Time: 12 pm Hospital: [facility] - Address: [address] [place] [address] Registration Location: [place] at Entrance [address], parking lot P3 PRE OP REQUIREMENTS Below MUST be completed prior to your procedure or it may result in delay or cancellation [] Pre op testing: NONE [x] Pre op labs: Draw pre op labs any time between and at any [facility] Lab, no paper orders are [...] 7am Other Instructions: [x] Must have a cat driver as you will be unable to drive following the procedure IMPORTANT INFORMATION Notify the EP Surgery office of any illness, infection or COVID symptoms or a COVID positive resultimmediately at [phone] If you take a blood thinner, unless [...] schedule changes or emergencies at the hospital [facility] currently allows up to two visitors [...] you by the EP Surgery nurses. The [facility] Mychart instructions can be incorrect and provide the wrong information about your procedure. If you have any questions or concerns about preparing for your procedure, please call the Surgery office at [phone] For additional questions and to schedule any follow up appointments please call the main [facility] Cardiology office at [phone] [facility] [employer] [id number] Miscellaneous Notes* Telephone Encounter - Melinda Gomes CMA - 06/01/2023 3:32 PM EST Called patient to remind them to bring their most current copy of their medication list with them to their appt. Patient verbalizes understanding. documented in this encounterZanesville City Hospital02-23-2024 Telephone encounter Note* Telephone Encounter - Melinda Gomes CMA - 06/01/2023 3:32 PM EST Called patient to remind them to bring their most current copy of their medication list with them to their appt. Patient verbalizes understanding. [facility] [employer] [id number] Evaluation note* Encounter Date Diagnosis Assessment Notes Treatment Notes Treatment Clinical Notes May, Acute pain of left knee (ICD-10 - M25.562) [facility] Other 02-12-2024 Evaluation note* Encounter Date Diagnosis [...] Pain of left calf (ICD-10 - M79.662) [facility] Other 02-07-2024 Evaluation note* Encounter Date Diagnosis Assessment Notes Treatment Notes Treatment Clinical Notes May, Aftercare following joint replacement surgery (ICD-10 - Z47.1) May, Presence of right artificial hip joint (ICD-10 - Z96.641) May, S/P total left hip arthroplasty (ICD-10 - Z96.642) May, Other [facility] at [facility] on 02/13/2023 At this point he is doing really well with the actual hip. We talked about being more aggressive and going to surgery to close this wound but the patient was recently diagnosed with atrial fibrillation. In my discussions with anesthesiology this would need to be worked up and evaluated by the emergency vehicle technician before considering a surgery unless it was an emergency. At this point I do not feel it is actively infected so I do not feel it is a emergent surgery. He does see [facility] in [place] on 06/04/2023. Our plan at this time is to continue with the wound VAC with home health nursing who will come back on Sunday to put the wound VAC back on. I will then plan to see him in about 3 weeks which would be a day or 2 after he has seen his emergency vehicle technician. At that point in time we will make a decision on the wound. If it is continuing to heal up and closed with the assistance of the wound VAC that is fantastic but if it still needs help then we will be aggressive at that time as long as his emergency vehicle technician allows. Discussed post-op dental prophylaxis. Shared decision made to continue prophylactic antibiotics indefinitely. [facility] Other 01-29-2024 Evaluation note* Encounter Date Diagnosis [...] sometime in November to further discuss surgery. [facility] Other 01-24-2024 Evaluation note* Encounter Date Diagnosis [...] are maintaining regular scheduled appts with their emergency vehicle technician. He understands that he must have surgery postponed for 4 wks for the new onset AFib. and postpone for 4-7 wks for COVID infection. Apr, Hypomagnesemia (ICD-10 - E83.42) Replace Magnesium w/ supplements Decrease Alcohol use. Recheck prior to any restortation of sinus rhythm [facility] Other 01-10-2024 NoteXR CHEST 1 VW Procedure: Chest x-ray performed Number of views:AP portable erect History:Palpitations, A. fib Comparison:07/18/2014 Findings: The heart and lungs show no acute findings, and the mediastinum and yue are grossly negative . There is a median sternotomy Impression: No acute change. Finalized by Sandra Barba DO on 04/18/2023 1:14 [facility] 04-18-2023 Miscellaneous Notes* Telephone Encounter - Florence Fermin RN - 04/18/2023 9:43 AM EST Received p/c from pt. Pt has home health since S/P hip replacement 02/2023. Having problems w/ incision not healing. Relates at visit today nurse was taking BP/HR and HR was irregular. nurse gone now. Pt unsureof pulse rate but states that BP 130/82. Nurse had an Iwatch and put on pt and told pt was in Afib but then left and told him to call his emergency vehicle technician. Pt not dyspneic. Does have some dizzy symptoms. Pt not on any blood thinners. Instructed to go to ER for evaluation documented in this encounterPorter Medical CenterOuterstuff01-10-2024 Telephone encounter Note* Telephone Encounter - Florence [...] left and told him to call his emergency vehicle technician. Pt not dyspneic. Does have some dizzy symptoms. Pt not on any blood thinners. Instructed to go to ER for evaluation [facility] Evaluation note* Encounter Date Diagnosis Assessment Notes [...] or dyspnea, instructed to go to ER [facility] Other 01-03-2024 Evaluation note* Encounter Date Diagnosis [...] will call us to get in sooner. [facility] Other 12-28-2023 Evaluation note* Encounter Date Diagnosis [...] and acute blood loss anemia are contributing [facility] Other 12-21-2023 Evaluation note* Encounter Date Diagnosis Assessment Notes Treatment Notes Treatment Clinical Notes Mar, Aftercare following joint replacement surgery (ICD-10 - Z47.1) Mar, Presence of right artificial hip joint (ICD-10 - Z96.641) Mar, S/P total left hip arthroplasty (ICD-10 - Z96.642) Mar, Other [facility] at [facility] on 02/13/2023 Overall he is doing [...] continue increasing activities as tolerated. Continue taking lnxx-cie-jygadjj anti-inflammatorie s as needed for assistance with swelling and pain associated with the operative extremity. OTOY Other 12-07-2023 Evaluation note* Encounter Date Diagnosis [...] in the office today and providing supervision. OTOY Other 12-07-2023 Evaluation note* Encounter Date Diagnosis [...] answered to the best of my ability. OTOY Other 12-04-2023 Evaluation note* Encounter Date Diagnosis Assessment Notes Treatment Notes Treatment Clinical Notes Mar, Primary osteoarthritis 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 (ICD-10 - M16.11) OTOY Other 11-29-2023 Miscellaneous Notes* Telephone Encounter - Kerry Beasley RN - 03/07/2023 5:25 PM EST Pt identified by name and Pt notified of below message and verbalizes understanding. Patient wanted to remind you he is on Allopurinol not cholchicine * Telephone Encounter - Heladio Pineda MD - 03/07/2023 4:25 PM EST Please Call patient if MyChart note not read to review results/released to My Chart if tests completed at [facility]: normal labs and no inflammation. [...] normal esr 9, crp<0.3; documented in this encounterHol[facility]* Encounter Date Diagnosis Assessment Notes Treatment Notes Treatment Clinical Notes Feb, Aftercare following joint replacement surgery (ICD-10 - Z47.1) Feb, Presence of right artificial hip joint (ICD-10 - Z96.641) Feb, S/P total left hip arthroplasty (ICD-10 - Z96.642) Feb, Other [facility] 2022 Patient is still progressing [...] follow-up appointments based on that incision check. OTOY Other 11-27-2023 History of Present illness Narrative* [...] no Dactylitis: no H/o precedent/frequent infection(s): no Enthesopathy/Ruth's/heel/plantar tenderness: no Skin thickening, psoriasis, photosensitivity, purpura: no Nail changes: no Alpecia, patchy: no Eye inflammation: glasses SICCA: no Oral/nasal/genital ulcers: no GI problems-diarrhea/bleeding/IBD/Gluten intolerence/Dysphagia: occasionally gerd Raynaud's phenomenon/digital ulcers: no Organ inv-Serositis: no Lung disease/ILD: no Myopathy/proximal muscle weakness: no Abnormal Urine or urethritis: no Renal/liver disease: as above CALL CENTER OPERATOR/PNS/sz/cva/cancer disease: no HEME-Cytopenias/LAD/Clots: no Fevers: no Fatigue: [...] Bone Density:no History of Fractures:left index finger phue dumptrujane 1979 Height Loss: 1/2 IMMUNIZATION HX: Pneumovax yes Flu shot yes Tetanus yes Last PPD: negative, maternal GM/mother had TB; PAST MEDICAL HISTORY: PMH FER/waiting CPAP, BPH, CAD, thyroid disease, 1st great toe/start alloupurinol ~2007, left index finger 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, Afib temporarily,S/p b/l TKR ~2012 bone on bone, S/p L THR 06/2021, 2013 s/p CABG 4vessels (44y/o 10cardiac stents), s/p [...] touching your toes, sit-ups, using row machine fci pain recommendations per primary care provider/pain clinic [...] video & audio (virtual) or phone or [id number] patient care, completing clinical documentation, obtaining and/or [...] physician/Primary care physician : Dear Dr.Benjamin Jackie Brower DO : I had the pleasure of [...] cc Coleman Brower DO documented in this encounterHol[facility]11-27-2023 NoteHNO ID: [id number] Author: Heladio Pineda MD Service: ? Author [...] no Dactylitis: no H/o precedent/frequent infection(s): no Enthesopathy/Ruth's/heel/plantar tenderness: no Skin thickening, psoriasis, photosensitivity, purpura: no Nail changes: no Alpecia, patchy: no Eye inflammation: glasses SICCA: no Oral/nasal/genital ulcers: no GI problems-diarrhea/bleeding/IBD/Gluten intolerence/Dysphagia: occasionally gerd Raynaud's phenomenon/digital ulcers: no Organ inv-Serositis: no Lung disease/ILD: no Myopathy/proximal muscle weakness: no Abnormal Urine or urethritis: no Renal/liver disease: as above CALL CENTER OPERATOR/PNS/sz/cva/cancer disease: no HEME-Cytopenias/LAD/Clots: no Fevers: no Fatigue: [...] other reviewed and negat (more content not included)...[id number] Instructions* Patient Instructions* Heladio Pineda MD - [...] touching your toes, sit-ups, using row machine keno terminal 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 pain recommendations per primary care provider/pain clinic [...] Ab, Total Negative Negative documented in this encounterHolmes [facility]11-25-2023 Miscellaneous Notes* Telephone Encounter - Heladio [...] - This Specialty 01/05/2023 PMR (polymyalgia rheumatica) (HCC) Rheumatology Heladio Pineda MD 11/17/2013 Wrist arthritis [facility] Conley 10/29/2013 Pseudogout Rheumatology Tracy Conley Upcoming Rheumatology Appointments - Next 365 Days Visit Type Date Time Department [facility] 03/05/2023 2:00 PM [facility] CBC: CBC Latest Ref Rng & [...] Expected Expires Ordered SED RATE DAYRONREN [SQWSR] 02/10/23 01/11/24 01/10/23 Auth. provider: Heladio [...] diagnoses: Vitamin B12 deficiency documented in this encounterHolmes County [facility]11-22-2023 Evaluation note* Encounter Date Diagnosis Assessment [...] total left hip arthroplasty (ICD-10 - Z96.642) OTOY Other 10-27-2023 Evaluation note* Encounter Date Diagnosis [...] patient could proceed with surgery safely. The manager strategic development was vital for surgery timing and scheduling [...] plans. Prolonged services time spent: 34 minutes OTOY Other 10-25-2023 Evaluation note* Encounter Date Diagnosis Assessment Notes Treatment Notes Treatment Clinical Notes Jan, Primary osteoarthritis 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 (ICD-10 - M16.11) Jan, Other 1. Right PETER Home Medications - DVT prophylaxis: Aspirin - NSAID: Home prednisone - Disposition: Same-day discharge Joints Meeting Checklist - Pharmacy: [facility] to bed - Approach/Technique: anterior, [place] bed - Implants: Avenir Complete/G7; - Anesthesia: general vs spinal - Blocks: Fascia iliaca - Preop Antibiotics: Ancef and Vanco - TXA: yes-systemic - Positioning/OR Bed: supine on [place] bed - Intraop X-ray: yes - Otoole: [...] above surgery. OARRS report generated and reviewed. OTOY Other 10-18-2023 Evaluation note* Encounter Date Diagnosis [...] w/ plan to start MTX after surgery OTOY Other 10-05-2023 Miscellaneous Notes* Telephone Encounter - Ruben Monterroso MA - 01/11/2023 8:43 AM EDT Spoke to pt aware of results and recommendations. * Telephone Encounter - Heladio Pineda MD - 01/10/2023 5:14 PM EDT Please Call patient if MyChart note not read to review results/released to My Chart if tests completed at [facility]: Mildly Low vitamin D maybe associated with fatigue/joint/muscle pain. Start vitamin D 4000 International Units daily with food. Mildly Low vitamin b12- maybe associated with fatigue, may start over the counter vitamin [id number] daily by mouth or notify office if [...] hepatitis panel, quantiferon tb; documented in this encounterHolmes County [facility]09-29-2023 Instructions* Patient Instructions* Heladio Pineda MD [...] touching your toes, sit-ups, using row machine fci pain recommendations per primary care provider/pain clinic [...] your usual activities immediately. documented in this encounterHolmes County [facility]09-29-2023 NoteHNO ID: [id number] Author: Heladio Pineda MD Service: ? Author Type: Physician Type: Progress Notes Filed: 01/05/2023 4:37 PM Note Text: NEW CONSULT:RHEUMATOLOGY SERVICE SERVICE DATE: 01/05/2023 SERVICE TIME: 11:31 AM REASON FOR CONSULT: joint pain 2nd opinion REQUESTING PHYSICIAN: Dr.Benjamin Inocente DO PRIMARY CARE PHYSICIAN: Coleman Brower DO Patient's Name: Esme Steven [address] [place] [address] Accompanied by: self This consult was requested for my medical opinion regarding the rheumatologic evaluation of the patient's joint pain problems, and my final recommendations will be communicated to the requesting health care provider by way of the shared medical record for internal providers or letter via the [employer] for external providers. January 05, [...] no Dactylitis: no H/o precedent/frequent infection(s): no Enthesopathy/Ruth's/heel/plantar tenderness: no Skin thickening, psoriasis, photosensitivity, purpura: no Nail changes: no Alpecia, patchy: no Eye inflammation: glasses SICCA: no Oral/nasal/genital ulcers: no GI problems-diarrhea/bleeding/IBD/Gluten intolerence/Dysphagia: occasionally gerd Raynaud's phenomenon/digital ulcers: no Organ inv-Serositis: no Lung disease/ILD: no Myopathy/proximal muscle weakness: no Abnormal Urine or urethritis: no Renal/liver disease: as above CALL CENTER OPERATOR/PNS/sz/cva/cancer disease: no HEME-Cytopenias/LAD/Clots: no Fevers: no Fatigue: [...] FAMILY HISTORY Problem Re (more content not included)...[facility]09-29-2023 History of Present illness Narrative* Heladio Pineda MD - 01/05/2023 11:31 AM EDT NEW CONSULT:RHEUMATOLOGY SERVICE SERVICE DATE: 01/05/2023 SERVICE TIME: 11:31 AM REASON FOR CONSULT: joint pain 2nd opinion REQUESTING PHYSICIAN: Dr.Benjamin Inocente DO PRIMARY CARE PHYSICIAN: Coleman Brower DO Patient's Name: Esme Steven [address] [place] [id number] Accompanied by: self This consult was requested for my medical opinion regarding the rheumatologic evaluation of the patient's joint pain problems, and my final recommendations will be communicated to the requesting health care provider by way of the shared medical record for internal providers or letter via the [facility] Postal Service for external providers. January 05, [...] no Dactylitis: no H/o precedent/frequent infection(s): no Enthesopathy/Ruth's/heel/plantar tenderness: no Skin thickening, psoriasis, photosensitivity, purpura: no Nail changes: no Alpecia, patchy: no Eye inflammation: glasses SICCA: no Oral/nasal/genital ulcers: no GI problems-diarrhea/bleeding/IBD/Gluten intolerence/Dysphagia: occasionally gerd Raynaud's phenomenon/digital ulcers: no Organ inv-Serositis: no Lung disease/ILD: no Myopathy/proximal muscle weakness: no Abnormal Urine or urethritis: no Renal/liver disease: as above CALL CENTER OPERATOR/PNS/sz/cva/cancer disease: no HEME-Cytopenias/LAD/Clots: no Fevers: no Fatigue: [...] Cans of Beer (12oz) per week 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, but guidelines favor continuing without interruption, if [...] E06.3) Clinically euthyroid, continue treatment without interruption OTOY Other 09-19-2023 Evaluation note* Encounter Date Diagnosis [...] Dec, Multiple joint pain (ICD-10 - M25.50) OTOY Other 08-17-2023 Evaluation note* Encounter Date Diagnosis Assessment Notes Treatment Notes Treatment Clinical Notes Nov, Pseudogout (ICD-10 - M11.20) OTOY Other 08-16-2023 Evaluation note* Encounter Date Diagnosis Assessment Notes Treatment Notes Treatment Clinical Notes Nov, Primary osteoarthritis 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 (ICD-10 - M16.11) OTOY Other 08-15-2023 Evaluation note* Encounter Date Diagnosis [...] refer to Heladio Pineda for rheumatology consult OTOY Other 08-07-2023 Evaluation note* Encounter Date Diagnosis [...] (ICD-10 - Z12.5) Yearly MELBA and PSA OTOY Other 07-19-2023 Evaluation note* Encounter Date Diagnosis Assessment Notes Treatment Notes Treatment Clinical Notes Oct, Superficial ulcer of lower extremity (ICD-10 - L97.909) Cleanse w/ soap and water. Elevate as much as possible. No improvement, refer to wound clinic Oct, Cellulitis of left lower extremity (ICD-10 - L03.116) Keep clean, elevate and use Mupirocin bid. Begin antibiotics. OTOY Other 06-27-2023 Evaluation note* Encounter Date Diagnosis [...] palpitations or lightheadedness He completed evaluation w/ Rip Sawyer w/o changes Instructed to avoid use of Nitroglycerine w/ Sildenafil. Instructed to avoid use if develop CP, palpitations or lightheadedness OTOY Other 06-21-2023 Evaluation note* Encounter Date Diagnosis Assessment Notes Treatment Notes Treatment Clinical Notes Sep, FER (obstructive sleep apnea) (ICD-10 - G47.33) AHI 25, Psat 80% OTOY Other 06-21-2023 Evaluation note* Encounter Date Diagnosis Assessment Notes Treatment Notes Treatment Clinical Notes Sep, FER (obstructive sleep apnea) (ICD-10 - G47.33) AHI 35 OTOY Other 05-03-2023 Evaluation note* Encounter Date Diagnosis [...] recurrent major depressive disorder (ICD-10 - F33.0) OTOY Other 05-01-2023 Evaluation note* Encounter Date Diagnosis [...] note writ ten by Kevyn Corona MA, Flight Operations Engineer. Edited and approved by Dr. Jonathan Samano MD. OTOY Other 04-25-2023 Evaluation note* Encounter Date Diagnosis Assessment Notes Treatment Notes Treatment Clinical Notes Jul, Myalgia (ICD-10 - M79.10) OTOY Other 04-24-2023 Evaluation note* Encounter Date Diagnosis Assessment Notes Treatment Notes Treatment Clinical Notes Jul, Right shoulder pain (ICD-10 - M25.511) OTOY Other 04-21-2023 Evaluation note* Encounter Date Diagnosis [...] of yearly testing Sent order to complete OTOY Other 03-28-2023 Evaluation note* Encounter Date Diagnosis [...] left shoulder, initial encounter (ICD-10 - S40.012A) OTOY Other 02-27-2023 Evaluation note* Encounter Date Diagnosis [...] note writ ten by Jeff Nieto LPN, Flight Operations Engineer. Edited and approved by Dr. Jonathan Samano MD. OTOY Other 02-27-2023 Evaluation note* Encounter Date Diagnosis [...] the injection well with no adverse reaction. OTOY Other 02-20-2023 Evaluation note* Encounter Date Diagnosis [...] to continue exercise and AHA diet plan. OTOY Other 02-14-2023 Evaluation note* Encounter Date Diagnosis Assessment Notes Treatment Notes Treatment Clinical Notes May, Tongue ulceration (ICD-10 - K14.0) Magic Mouth Wash qid. Refer to ENT May, Hoarseness of voice (ICD-10 - R49.0) Refer to ENT May, Odynophagia (ICD-10 - R13.10) Refer to ENT OTOY Other 01-04-2023 Evaluation note* Encounter Date Diagnosis [...] note writ ten by Jeff Nieto LPN, Flight Operations Engineer. Edited and approved by Dr. Jonathan Samano MD. OTOY Other 11-30-2022 Evaluation note* Encounter Date Diagnosis [...] note writ ten by Jeff Nieto LPN, Flight Operations Engineer. Edited and approved by Dr. Jonathan Samano MD. OTOY Other 11-09-2022 Evaluation note* Encounter Date Diagnosis [...] and tingle for hours after this injection. OTOY Other 11-07-2022 Evaluation note* Encounter Date Diagnosis [...] note writ ten by Jeff Nieto LPN, Flight Operations Engineer. Edited and approved by Dr. Jonathan Samano MD. OTOY Other 06-22-2022 Evaluation note* Encounter Date Diagnosis Assessment Notes Treatment Notes Treatment Clinical Notes Sep, Primary osteoarthritis 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 (ICD-10 - M16.11) Sep, Primary osteoarthritis of left hip (ICD-10 - M16.12) Sep, S/P total left hip arthroplasty (ICD-10 - Z96.642) Sep, Other [facility] at [facility] on 07/04/2021 Doing well. Again discussed [...] to call with any questions or concerns. OTOY Other 06-06-2022 Evaluation note* Encounter Date Diagnosis Assessment Notes Treatment Notes Treatment Clinical Notes Sep, Right hand pain (ICD-10 - M79.641) Sep, Arthritis of right hand (ICD-10 - M19.041) Right long finger MCP joint injected with cortisone under sterile technique, patient tolerated well. Will discuss surgical options with Dr Nichole OTOY Other 05-11-2022 Evaluation note* Encounter Date Diagnosis Assessment Notes Treatment Notes Treatment Clinical Notes August, Primary osteoarthritis 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 (ICD-10 - M16.11) August, Primary osteoarthritis of left hip (ICD-10 - M16.12) August, S/P total left hip arthroplasty (ICD-10 - Z96.642) August, Other [facility] at [facility] on 07/04/2021 Doing well Patient may continue increasing activities as tolerated. Continue taking nawu-mre-vfgnmfx anti-inflammatori es as needed for assistance with swelling and pain associated with the operative extremity. Follow-up in 6 weeks for repeat examination and repeat x-rays. OTOY Other 04-13-2022 Evaluation note* Encounter Date Diagnosis Assessment Notes Treatment Notes Treatment Clinical Notes Jul, Primary osteoarthritis 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 (ICD-10 - M16.11) Jul, Primary osteoarthritis of left hip (ICD-10 - M16.12) Jul, Other [facility] at [facility] on 07/04/2021 Doing well. Steri-Strips applied. [...] off narcotic pain medication. They can take nefb-oqp-bnsbner anti-inflammatories as needed for assistance with swelling [...] shoe for his standing weightbearing pelvis x-ray. OTOY Other 03-18-2022 Evaluation note* Encounter Date Diagnosis [...] patient could proceed with surgery safely. The manager strategic development was vital for surgery timing and scheduling [...] echo and a heart cath by his emergency vehicle technician. He was then cleared from a cardiology standpoint. Any recommendations made by these care providers were taken into consideration for the patient's perioperative and postoperative treatment plans. Prolonged services time spent: 33 minutes OTOY Other 03-11-2022 Evaluation note* Encounter Date Diagnosis [...] postoperative period Joints Meeting Checklist - Pharmacy: [facility] to bed - Approach/Technique: anterior, [place] bed - Implants: Avenir Complete/G7; - Anesthesia: general - Blocks: Fascia iliaca - Preop Antibiotics: Ancef - TXA: yes-systemic - Positioning/OR Bed: supine on [place] bed - Intraop X-ray: yes - Otoole: [...] elected to proceed with the above surgery. OTOY Other 11-16-2021 Evaluation note* Encounter Date Diagnosis [...] note writ ten by Erica Valenzuela CMA, Flight Operations Engineer. Edited and approved by Dr. Jonathan Samano MD. OTOY Other 09-29-2021 Evaluation note* Encounter Date Diagnosis [...] note writ ten by Erica Valenzuela CMA, Flight Operations Engineer. Edited and approved by Dr. Jonathan Samano MD. 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 Encounter for long-term (current) use of steroids CHENCHO positive Other and unspecified nonspecific immunological findings Bilateral hand swelling documented in this encounter [facility]* Diagnosis PMR (polymyalgia rheumatica) (HCC)- Primary Polymyalgia rheumatica Elevated sed rate Elevated sedimentation rate Elevated C-reactive protein (CRP) Vitamin D deficiency Unspecified vitamin D deficiency Vitamin B12 deficiency Other B-complex deficiencies documented in this encounter [facility]* Diagnosis PMR (polymyalgia rheumatica) (HCC)- Primary [...] Pain in limb documented in this encounter [facility]* Diagnosis PMR (polymyalgia rheumatica) (HCC)- Primary Polymyalgia rheumatica Elevated sed rate Elevated sedimentation rate Elevated C-reactive protein (CRP) documented in this encounter [facility] note* Diagnosis Hypomagnesemia- Primary Disorders of magnesium metabolism [facility] this [facility] Diagnosis Steroid-induced osteoporosis Other osteoporosis documented in this encounter [facility]* Diagnosis Onset Date Resolution Status Aftercare following hip joint replacement surgery acute History of total replacement 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 acute Aftercare following hip joint replacement surgery acute History of total replacement 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 acute ASHD (arteriosclerotic heart disease) acute GENESIS (generalized anxiety disorder) acute Hyperlipidemia acute Hypertension acute Hypothyroidism acute [facility] Work Phone: Evaluation note* Diagnosis PMR (polymyalgia rheumatica) (HCC)- Primary Polymyalgia rheumatica Elevated sed rate Elevated sedimentation rate Elevated C-reactive protein (CRP) Vitamin D deficiency Unspecified vitamin D deficiency documented in this encounter [facility] note* Diagnosis Persistent atrial fibrillation (Multi)- Primary Atrial fibrillation Multi-vessel coronary artery stenosis Cardiomyopathy, ischemic Other specified forms of chronic ischemic heart disease Mixed hyperlipidemia 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 (Multi) Atrial fibrillation Status post aorto-coronary artery bypass graft 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 Work Phone: Evaluation note* Diagnosis Onset Date Resolution Status Aftercare following hip joint replacement surgery acute History of total replacement 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 acute Aftercare following hip joint replacement surgery acute History of total replacement 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 acute ASHD (arteriosclerotic heart disease) acute Atrial fibrillation acute GENESIS (generalized anxiety disorder) acute Hypertension acute [facility] Work Phone: Evaluation note* Diagnosis 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 (Multi) Atrial fibrillation documented in this encounter [facility] Work Phone: Evaluation note* Diagnosis [...] acute SIRS (systemic inflammatory response syndrome) acute [facility] Work Phone: Evaluation note* Diagnosis Onset Date [...] acute SIRS (systemic inflammatory response syndrome) acute [facility] Work Phone: Evaluation note* Diagnosis PMR (polymyalgia rheumatica) ([facility])- Primary Polymyalgia rheumatica Elevated sed rate Elevated sedimentation rate Elevated C-reactive protein (CRP) documented in this encounter [facility]* Diagnosis Onset Date Resolution Status Aftercare following hip joint replacement surgery acute History of total replacement 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 acute ASHD (arteriosclerotic heart disease) acute GENESIS (generalized anxiety disorder) acute Acute diverticulitis acute Acute diverticulitis acute ASHD (arteriosclerotic heart disease) acute Inflammatory polyarthritis a cute Persistent atrial fibrillation acute Primary hypertension acute [facility] Work Phone: Evaluation note* Diagnosis 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 (tophi) Hyperuricemia Other abnormal blood chemistry documented in this encounter [facility] Diagnosis Onset Date Resolution Status Acute diverticulitis acute Elevated lactic acid level r esolved Acute diverticulitis acute ASHD (arteriosclerotic heart disease) acute Inflammatory polyarthritis a cute Persistent atrial fibrillation acute Primary hypertension acute Biceps tendonitis on right a cute Rotator cuff syndrome of right shoulder acute Traumatic complete tear of left rotator cuff acute [facility] Work Phone: Evaluation note* Diagnosis [...] diverticulitis of colon noneactive Wellness examination noneact [facility] Work Phone: Evaluation note* Diagnosis Elevated sed rate Elevated sedimentation rate Elevated C-reactive protein (CRP) PMR (polymyalgia rheumatica) ([facility]) Polymyalgia rheumatica documented in this encounter [facility] Diagnosis Onset Date Resolution Status Biceps tendonitis on right a cute Rotator cuff syndrome of right shoulder acute Traumatic complete tear of left rotator cuff acute Acute right flank pain acute ASHD (arteriosclerotic heart disease) acute Atrial fibrillation acute GENESIS (generalized anxiety disorder) acute Gastroesophageal reflux dise ase with esophagitis without hemorrhage acute Hypercholesterolemia acute Hypothyroid acute FER (obstructive sleep apnea) acute Primary hypertension acute Screening PSA (prostate specific antigen) noneactive H/O diverticulitis of colon noneactive Wellness examination noneact [facility] Work Phone: Evaluation note* Diagnosis Onset Date Resolution Status Acute right flank pain acute ASHD (arteriosclerotic heart disease) acute Atrial fibrillation acute GENESIS (generalized anxiety disorder) acute Gastroesophageal reflux dise ase with esophagitis without hemorrhage acute Hypercholesterolemia acute Hypothyroid acute FER (obstructive sleep apnea) acute Primary hypertension acute Screening PSA (prostate specific antigen) noneactive H/O diverticulitis of colon noneactive Wellness examination noneact [facility] Work Phone: Evaluation note* Diagnosis Onset Date Resolution Status Acute right flank pain acute ASHD (arteriosclerotic heart disease) acute Atrial fibrillation acute GENESIS (generalized anxiety disorder) acute Gastroesophageal reflux dise ase with esophagitis without hemorrhage acute Hypercholesterolemia acute Hypothyroid acute FER (obstructive sleep apnea) acute Primary hypertension acute Screening PSA (prostate specific antigen) noneactive H/O diverticulitis of colon noneactive Wellness examination noneact mallory Primary osteoarthritis, right hand acute [facility] Work Phone: History and physical note Author Elliott Talley [facility] August 30, 2023 11:34pm Note Date/Time August 30, 2023 11:04 pm [facility] [address] [place] [address] Hospitalist H&P Signed Patient: Esme Steven MR#: [id number] : 1960 Acct:[id number] Age/Sex: 62 / M Adm Date: 4 Loc: Room: [address] [place] [address] Type: ADM IN Attending Dr: Elliott Talley [...] that which is noted above in [facility] Medical History (Updated 08/30/23 @ 23:33 by [...] % (Auto) 4.4 % (.) 08/30/23 18:20 [place] % (Auto) 2.3 % (.) 08/30/23 18:20 Eos % (Auto) 0.1 % (.) 08/30/23 18:20 Baso % (Auto) 0.8 % (.) 08/30/23 18:20 Nucleat RBC Rel Count 0.0 /100 WBC (0-0.5) 08/30/23 18:20 Neut # (Auto) 13.4 x10E3/uL (1.8-7.7) H 08/30/23 18:20 Lymph # (Auto) 0.6 x10E3/uL (1.00-4.8) L 08/30/23 18:20 [place] # (Auto) 0.3 x10E3/uL (0.0-0.8) 08/30/23 18:20 [...] pH 5.5 (5.0-9.0) 08/30/23 18:45 Ur Specific [place] 1.016 (1.001-1.030) 08/30/23 18:45 Urine Protein Negative [...] pink Documented By: Elliott Talley MD 4 [id number] Signed By: <Electronically signed by Elliott Talley MD> 08/30/23 9020 [facility] Work Phone: History and physical note Author Mehrdad Mcmanus [facility] December 31, 2023 12:47pm Note Date/Time December 31, 2023 12:47pm [facility] [address] [place] [address] Gastroenterology H&P Signed Patient: Esme Steven MR#: [id number] : 1960 Acct:[id number] Age/Sex: 63 / M Adm Date: 4 Loc: Room: Type: [facility] Attending Dr: Mehrdad Mcmanus MD Copies to: Coleman Brower,DO Mehrdad Mcmanus MD~ Date of Service: 12/31/2023 HISTORY & PHYSICAL: Patient's history with special attention to the cardiovascular, pulmonary systems and the current problem was reviewed with the patient immediately prior to the procedure. Present medications and doses reviewed in the EMR. Allergies and pertinent laboratory tests were also reviewedat this time in the EMR. The physical examination, as below, was then performed. Indication, assessment and HPI: 63-year-old man with history of colonic polyps and history of diverticulitis here for diagnostic colonoscopy Family history of GI malignancy? No PHYSICAL EXAMINATION General appearance: NAD Skin: No jaundice Head: NC/AT Eyes: Anicteric Neck: Supple Lungs: Normal respiratory effort, no use of accessory muscles Abdomen: nondistended Neuro: Ox3. REVIEW OF SYSTEMS Constitutional: Denies malaise, fevers Cardiovascular: Denies chest pain, palpitations Respiratory: Denies shortness of breath, wheezing Gastrointestinal: As per HPI Genitourinary: Denies dysuria, polyuria Musculoskeletal: Denies joint swelling, joint stiffness Neurological: Denies confusion, numbness, tingling Endocrine: Denies fatigue Written informed consent obtained from the patient. Risks (including but not limited to perforation, infection, bloating, bleeding, need for emergent surgeryand loss of life), benefits and alternatives explained and questions answered. The patient verbalized understanding. Based on history patient is an appropriate candidate for the procedure. Mehrdad Mcmanus M.D. Documented By: Mehrdad Mcmanus MD 12/31/23 1249 Signed By: <Electronically signed by Mehrdad Mcmanus MD> 12/31/23 2073 [facility] Work Phone: Hiseqcc general Narrative - Reported* Type Description Date [...] Harmony willams 2012 Hospitalization History see above OTOY Other Hiscuro general Narrative - Reported* Type Description Date [...] knee replacement 2012 Hospitalization History see above OTOY Other Hissghi general Narrative - Reported* Type Description Date [...] Harmony willams 2012 Hospitalization History see above [facility]TOY Other [facility] Other history general Narrative - Reported* Type [...] History LTHA 07/04/21 Hospitalization History see above OTOY Other history general Narrative - Reported* Type [...] History LTHA 07/04/21 Hospitalization History see above OTOY Other history general Narrative - Reported* Type [...] 07/17/14 Surgical History double knee replacement Dr Hamrony willams 2012 Surgical History LTHA 07/04/21 Hospitalization History see above OTOY Other history general Narrative - Reported* Type [...] Right PETER 02/2023 Hospitalization History see above OTOY Other History general Narrative - Reported* Type [...] LHC w/ PTCA/stent 2005 Surgical History LHC 2006 Surgical History LHC 2008 Surgical History LHC 2010 Surgical History LHC w/ PTCA/stent 2013 Hospitalization History see above OTOY Other Hospital Discharge instructions Additional Instructions Joint Replacement Discharge Instructions Your safety during your recovery process is important to us. Please seek immediate emergency care if you have sudden chest pain or shortness of breath. Additionally, please call our office at [phone] should any of the following occur: wound [...] to walk without your walker and your care process manager until the therapist checks you the [...] and/or laxatives as directed. You may take xzkj-qev-dgkezak Benadryl if itching occurs without a rash or hives. Icing and elevation will help relieve pain as well, do not underestimate the power of ice and elevation. We do recommend that you stop taking narcotic pain medications by 4-6 weeks after surgery and if necessary, continue to use anti-inflammatory medications such as Mobic (meloxicam), Celebrex (celecoxib), or an fxba-fgp-odmzlcq medication (Aleve, Motrin, Ibuprofen, etc). Driving an [...] feel free to call our office at [phone]. You are a priority of ours and we will not be upset with you if you call. We would much rather you call to confirm aspects of your recovery process as opposed to possibly hindering your recovery with inappropriate care. We are committed to providing you with the best care possible. Sarai Mendez II, MD Updated 06/23/2022[facility] Work Phone: InstructionsNot on filedocumented in this encounter [facility] filedocument[facility] in this encounter [facility] filedocumented in this encounter [facility]Not [facility] filedocumented in this encounter [facility]ructionsNot on filedocumented in this encounter [facility] note Author Sally Alex [facility] August 31, 2023 3:45pm Note Date/Time August 31, 2023 10:54 am [facility] [address] [place] [address] Hospitalist Progress Note Signed with Addenda Patient: Esme Steven MR#: [id number] : 1960 Acct:[id number] Age/Sex: 62 / M Adm Date: 4 Loc: Room: [address] [place] [address] Type: ADM IN Attending Dr: Sally Alex MD Copies to: ~ ADDENDUM1 Patient was personally seen by me on the day of encounter, reviewed his history and performed gomez elements of exam and formulated the plan of care and confirmedthe resident/interns note below. Addendum Documented By: aSlly Alex MD 08/31/23 1071 Addendum Signed By: <Electronically signed by Sally Alex MD> 08/31/23 154 Date of Service: 08/31/2023 Subjective Subjective Narrative: [...] 08/30/23 22:53 Acetaminophen 325 Mg Tablet PO 05/23/25 22:52 Q6HR PRN Pain Scale 1 - [...] signed by DO RADHA Zavala> 08/31/23 1054 [facility] Work Phone: Reason for referral (narrative)* Reason Referral for suspect ed PMR Known OA spine, hips, knees, hands Diagnosis 1 PMR (polymyalgia rhe umatica) (M35.3) Referral Organization [facility] Inocente faye Referring Provider First Name Coleman Referring Provider Last Name Inocente Referring Provider Specialty Internal Me dicine Referred Organization [facility] Referred Provider Sarai Georges Referred Address [address] Shamir Huber,[place],[address] Referral Priority Routine OTOY Other Reason for referral (narrative)* Diagnostic Procedure Only (Routine) - Authorized Specialty Diagnoses / Procedures Referred By Contac t Referred To Contact XR IMAGING Diagnoses Steroid-induced osteoporosis Procedures DXA-FOREARM SKELETON DXA BONE DENSITY STUDY 1/>SITES Heladio Alvarado MD [address] [facility] [place] [address] [place] [address] Referral ID Status Reason Start Date Expiration Date Visits Requested Visits Authorized [id number] Authorized Auto-Generat ed Referral 01/05/2023 02/04/2024 1 1 [facility] for referral (narrative)* Diagnostic Procedure Only (Routine) - Closed Specialty Diagnoses / Procedures Referred By Contac t Referred To Contact XR IMAGING Diagnoses Steroid-induced osteoporosis Procedures DXA-FOREARM SKELETON DXA BONE DENSITY STUDY 1/>SITES Heladio Alvarado MD [address] [facility] [place] [address] [place] [address] Referral ID Status Reason Start Date Expiration Date V isits Requested Visits Authorized [id number] Closed Auto-Generate d Referral 01/05/2023 02/04/2024 1 1 [facility] for visit Narrative* Diagnostic Procedure Only (Routine) - Closed Specialty Diagnoses / Procedures Referred By Contac t Referred To Contact XR IMAGING Diagnoses Steroid-induced osteoporosis Procedures DXA-FOREARM SKELETON DXA BONE DENSITY STUDY 1/>SITES Heladio Alvarado MD [address] [facility] [place] [address] [place] [address] Referral ID Status Reason Start Date Expiration Date V isits Requested Visits Authorized [id number] Closed Auto-Generate d Referral 01/05/2023 02/04/2024 1 1 [facility] Chief Complaint and Reason for Visit [...] Complaint Hip pain Hip pain Chief Complaint Op/Manager Hi Left Shoulder Pain Mri Done At [facility] z47.1 z96.641 Flu Shot/ Bp Check Discussion About Rip Sawyer Recheck Left Shoulder Cannot Have Surger Chief Complaint Op/Manager Hi Left Shoulder Pain Mri Done At [facility] z47.1 z96.641 Flu Shot/ Bp Check Discussion About Rip Sawyer Recheck Left Shoulder Cannot Have Surger Z47.1/Z96.641 T84.84XA Z96.652 M79.662 Chief Complaint Flu Shot/ Bp Check Discussion About Rip Sawyer Recheck Left Shoulder Cannot Have Surger Z47.1/Z96.641 [...] antigen) H/O diverticulitis of colon Wellness examination Chief Complaint OP SP BILAT SHOULDER PAIN wellness Screening Screening Reason for Visit Biceps tendonitis on right Rotator cuff syndrome of right shoulder Traumatic complete tear of left rotator cuff Acute right flank pain ASHD (arteriosclerotic heart disease) Atrial fibrillation GENESIS (generalized anxiety disorder) Gastroesophageal reflux disease with esophagitis without hemorrhage Hypercholesterolemia Hypothyroid FER (obstructive sleep apnea) Primary hypertension Screening PSA (prostate specific antigen) H/O diverticulitis of colon Wellness examination Chief Complaint wellness Screening Screening Amb Documentation i48.91 Reason for Visit Acute right flank pa in ASHD (arteriosclerotic heart disease) Atrial fibrillation GENESIS (generalized anxiety disorder) Gastroesophageal reflux disease with esophagitis without hemorrhage Hypercholesterolemia Hypothyroid FER (obstructive sleep apnea) Primary hypertension Screening PSA (prostate specific antigen) H/O diverticulitis of colon Wellness examination Chief Complaint wellness Screening Screening Amb Documentation i48.91 OP SP RT LONG FINGER PAIN WANTS INJ Reason for Visit Acute right flank pa in ASHD (arteriosclerotic heart disease) Atrial fibrillation GENESIS (generalized anxiety disorder) Gastroesophageal reflux disease with esophagitis without hemorrhage Hypercholesterolemia Hypothyroid FER (obstructive sleep apnea) Primary hypertension Screening PSA (prostate specific antigen) H/O diverticulitis of colon Wellness examination Primary osteoarthritis, right hand Chief Complaint Admit Date Screening December 31, 2023 10:21am Screening December 31, 2023 12:46pm Amb Documentation December 31, 2023 3:34pm i48.91 January 24, 2024 1 0:49am OP SP RT LONG FINGER PAIN WANTS INJ Nove mber 2023 1:35pm OP SP BILAT SHOULDER PAIN February 18, 2024 9:37am Reason for Visit Admit Date Primary osteoarthritis, right hand Novem akila 2023 1:35pm Biceps tendonitis on right February 9:37am Rotator cuff syndrome of right shoulder February 18, 2024 9:37am Traumatic complete tear of left rotator cuff February 18, 2024 9:37am Family History Relationship Condition Age at Onset [...] Cerebral aneurysm Unknown brother Exposure to Agent Sierra Unknown Relationship Condition Age at Onset Recorded Date/T daren Not Specified Calculus of kidney Unknown Presence of cardiac pacemaker Unknown Cerebrovascular accident (CVA) Unknown father Coronary artery disease Unknown brother Cerebral aneurysm Unknown brother Exposure to Agent Sierra Unknown brother Unknown father Unknown Not Specified Unknown History of stroke Unknown Heart disease Unknown Relationship Condition Age at Onset Recorded Date/T daren Not Specified Calculus of kidney Unknown Presence of cardiac pacemaker Unknown Cerebrovascular accident (CVA) Unknown History of stroke Unknown Unknown Heart disease Unknown father Coronary artery disease Unknown brother Cerebral aneurysm Unknown Exposure to Agent Sierra Unknown Relationship Condition Age at Onset Recorded Date/T daren mother Calculus of kidney Unknown Presence of cardiac pacemaker Unknown Cerebrovascular accident (CVA) Unknown History of stroke Unknown Unknown Heart disease Unknown father Coronary artery disease Unknown brother Cerebral aneurysm Unknown Exposure to Agent Sierra Unknown Relationship Condition Age at Onset Recorded Date/T daren mother Heart disease Unknown Calculus of kidney Unknown Unknown Presence of cardiac pacemaker Unknown Cerebrovascular accident (CVA) Unknown father History of coronary artery stent placement Unknown Coronary artery disease Unknown brother Unknown Exposure to Agent Sierra Unknown brother Cerebral aneurysm Unknown Advance Directives Advance Directive Response Recorded Date/ Time Advance Directives No January 25, 2017 2:08pm Advance Directive Response Recorded Date/ Time Advance Directives No January 25, 2017 1:08pm Reason for Referral Specialty Diagnoses / Procedures Referred By Mario bartholomew Referred To Contact Diagnoses 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 (Multi) Procedures ECG 12 Lead Antonio Steele MD [address] [facility] [address], [address] [address] Referral ID Status Reason Start Date Expiration Date V isits Requested Visits Authorized [id number] Authorized 07/27/2023 07/26/2024 1 1 Specialty Diagnoses / Procedures Referred By Mario t Referred To Contact Cardiology Diagnoses 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 (Multi) 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 Procedures Cardioversion External Antonio Steele MD [address] [facility] 2, [address] [address] Referral ID Status Reason Start Date Expiration Date V isits Requested Visits Authorized [id number] Pending Review 07/27/2023 07/26/2024 1 1 Referral ID Status Reason Start Date Expiration Date V isits Requested Visits Authorized [id number] Authorized 07/27/2023 07/26/2024 1 1 Specialty Diagnoses / Procedures Referred By Breonnaac t Referred To Contact Cardiology Diagnoses 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 (Multi) Procedures Follow Up In Cardiology Antonio Steele MD [address] [facility] [address], [address] [place] [address] Antonio Steele MD [address] [facility] [address], [address] [place] [address] Referral ID Status Reason Start Date Expiration Date V isits Requested Visits Authorized [id number] Authorized 07/27/2023 07/26/2024 1 1 Reason *FU 11/[address] efer to [address] pineda for rheumatology. labs with Dr Brower. Saw [facility], wants second opinion Diagnosis 1 Multiple joint pain (M25.50) Referral Organization [facility] Referring Provider First Name Melinda Referring Provider Last Name Luba Referring Provider Specialty Nurse Pract itioner Referred Organization [facility] Referred Provider Heladio Pineda Referred Address [address] [place] [place], [place],[address] Referred Provider Specialty Internal Med icine Referral [...] 1 Tongue ulceration (K 14.0) Referral Organization [facility] Marvin faye Referring Provider First Name Coleman Referring Provider Last Name Inocente Referring Provider Specialty Internal Me dicine Referred Organization [facility] Referred Provider Radha Blackburn Referred Address ,[place], [place],[address] Referred Provider Specialty Ear, Nose an d [...] or prosecute any alcohol or drug abuse patient.[facility] Hospital[facility] the event this information is protected by the Federal Confidentiality of Alcohol and Drug Abuse Patient Records regulations: The Federal rules restrict any use of the information to criminally investigate or prosecute any alcohol or drug abuse patient.[facility] the event this information is protected by the Federal Confidentiality of Alcohol and Drug Abuse Patient Records regulations: The Federal rules restrict any use of the information to criminally investigate or prosecute any alcohol or drug abuse patient.[facility] Hospital[facility] the event this information is protected by the Federal Confidentiality of Alcohol and Drug Abuse Patient Records regulations: The Federal rules restrict any use of the information to criminally investigate or prosecute any alcohol or drug abuse patient.[facility] Hospital[facility] the event this information is protected by the Federal Confidentiality of Alcohol and Drug Abuse Patient Records regulations: The Federal rules restrict any use of the information to criminally investigate or prosecute any alcohol or drug abuse patient.[facility] the event this information is protected by the Federal Confidentiality of Alcohol and Drug Abuse Patient Records regulations: The Federal rules restrict any use of the information to criminally investigate or prosecute any alcohol or drug abuse patient.[facility] Hospital[facility] the event this information is protected by the Federal Confidentiality of Alcohol and Drug Abuse Patient Records regulations: The Federal rules restrict any use of the information to criminally investigate or prosecute any alcohol or drug abuse patient.[facility] HospitalIn the event this information is protected by the Federal Confidentiality of Alcohol and Drug Abuse Patient Records regulations: The Federal rules restrict any use of the information to criminally investigate or prosecute any alcohol or drug abuse patient.[facility] HospitalIn the event this information is protected by the Federal Confidentiality of Alcohol and Drug Abuse Patient Records regulations: The Federal rules restrict any use of the information to criminally investigate or prosecute any alcohol or drug abuse patient.[facility] HospitalIn the event this information is protected by the Federal Confidentiality of Alcohol and Drug Abuse Patient Records regulations: The Federal rules restrict any use of the information to criminally investigate or prosecute any alcohol or drug abuse patient.[facility] HospitalIn the event this information is protected by the Federal Confidentiality of Alcohol and Drug Abuse Patient Records regulations: The Federal rules restrict any use of the information to criminally investigate or prosecute any alcohol or drug abuse patient.[facility] HospitalIn the event this information is protected by the Federal Confidentiality of Alcohol and Drug Abuse Patient Records regulations: The Federal rules restrict any use of the information to criminally investigate or prosecute any alcohol or drug abuse patient.[facility] REASON FOR VISIT (unrecogniz ed section and content) Reason Comments Consult Pain Ongoing generalized pain. Reason Comments Results Reason Comments Refill Request Reason Comments Follow Up Reason Onset Date Comments EP Surgery ( Pt Education) 06/11/2023 Reason Comments Results Orders Reason Comments New Patient Visit [id number], previous [facility] patient Specialty Diagnoses / Procedures Referred By Mario t Referred To Contact Diagnoses 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 (Multi) Procedures ECG 12 Lead Antonio Steele MD [address] [facility] [address], [address] [place] [address] Referral ID Status Reason Start Date Expiration Date V isits Requested Visits Authorized [id number] Authorized 07/27/2023 07/26/2024 1 1 Reason Comments EKG visit Specialty Diagnoses / Procedures Referred By Contac t Referred To Contact Diagnoses 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 (Multi) Procedures ECG 12 Lead Antonio Steele MD [address] [facility] [address] [place] [address] Referral ID Status Reason Start Date Expiration Date V isits Requested Visits Authorized [id number] Authorized 07/27/2023 07/26/2024 1 1 Reason Onset Date Comments Refill Request 12/13/2023 Reason Comments Med Refill Care Teams (unrecognized sec tion and content) [...] 2023 End: October 02, 2023 Sukhjinder Montesinos DO Attending Provider Active St art: October 02, 2023 End: October 02, 2023 Team Status: Inactive Member Role Status Nader Brower DO Primary Care Provide r, Attending Provider Active Start: November 19, 2023 End: November 19, 2023 Team Status: Active Member Role Status Nader Brower DO Primary Care Provide r, Attending Provider Active Start: July 05, 2023 Team Status: Inactive Member Role Status Nader Brower DO Primary Care Provider Active Start: August 02, 2023 End: August 02, 2023 Antonio Steele MD Attending Provid er, Referring Provider Active Start: August 02, 2023 End: August 02, 2023 Team Status: Inactive Member Role Status Dates Coleman Brower DO Primary Care Provider Active Start: June [...] Brower DO Primary Care Provider Active Start: June 04, 2023 Thao Harding Attending Provider Active Start: Briseida thurman 2023 Team Status: Inactive Member Role Status Dates Coleman Brower DO Primary Care Provider Active Start: June 06, 2023 End: June 06, 2023 Sarai Mendez II, MD Attending Provider Active Start: June 06, 2023 End: June 06, 2023 Team Status: Active Member Role Status Dates Coleman Brower , DO Primary Care Provider Active Start: August [...] Dates Coleman Brower , DO Primary Care Provider, Attending Elsa carter Active Team Status: Inactive Member Role Status [...] Brower , DO Primary Care Provider Active Melinda Verduzco NP-C Attending Provider Active Team Status: Inactive Member Role Status Dates Coleman Brower , DO Primary Care Provider Active Sarai Georges MD Attending Provider Active Team Status: Inactive Member Role Status Dates Coleman Brower , DO Primary Care Provider Active Damien Holbrook PA-C Emergency Provider Active Management Trainee Relationship Specialty Start Date End Date Coleman Brower DO [address] [place] [address] PCP - General Internal Medicine 01/05/23 Melinda Verduzco, STITCH BURNISHER [address] [place] [address] Referring Orthopedics 11/24/22 Management Trainee Relationship Specialty Start Date End Date Coleman Brower DO [address] [place] [address] PCP - General Internal Medicine 01/05/23 Melinda Verduzco, STITCH BURNISHER [address] [place] [address] Referring Orthopedics 11/24/22 Management Trainee Relationship Specialty Start Date End Date Coleman Brower DO [address] [place] [address] PCP - General Internal Medicine 01/05/23 Melinda Verduzco, STITCH BURNISHER [address] [place] [address] Referring Orthopedics 11/24/22 Management Trainee Relationship Specialty Start Date End Date Coleman Brower DO [address] [facility] [place] [address] PCP - General Internal Medicine 01/05/23 Melinda Verduzco, STITCH BURNISHER [address] [place] [address] Referring Orthopedics 11/24/22 Management Trainee Relationship Specialty Start Date End Date Coleman Brower DO [address] [place] [id number] PCP - General 01/08/18 Team Status: Inactive [...] May 21, 2023 End: May 21, 2023 Melinda Verduzco , TERMITE CONTROL REPRESENTATIVE-C Attending Provider Active Start: May 21, 2023 End: May 21, 2023 Management Trainee Relationship Specialty Start Date End Date Coleman Brower DO [address] [place], [place] [id number] PCP - General 01/08/18 Management Trainee Relationship Specialty Start Date End Date Coleman Brower DO [address] [place] [id number] PCP - General 01/08/18 Management Trainee Relationship Specialty Start Date End Date Coleman Brower DO [address] [place] [id number] PCP - General Internal Medicine 01/05/23 Melinda Verduzco, STITCH BURNISHER [address] [place] [address] [place] [address] Referring Orthopedics 11/24/22 Management Trainee Relationship Specialty Start Date End Date Coleman Brower DO [address] [place] [address] PCP - General Internal Medicine 01/05/23 Melinda Verduzco, STITCH BURNISHER [address] [place] [address] Referring Orthopedics 11/24/22 Management Trainee Relationship Specialty Start Date End Date Coleman Brower DO [address] [place] [id number] PCP - General Internal Medicine 01/05/23 Melinda Verduzco, STITCH BURNISHER [address] [place] [address] Referring Orthopedics 11/24/22 Management Trainee Relationship Specialty Start Date End Date Coleman Brower DO [address] [id number] PCP - General Internal Medicine 07/12/23 Management Trainee Relationship Specialty Start Date End Date Coleman Brower DO PCP - General Internal Medicine 07/12/23 Management Trainee Relationship Specialty Start Date End Date Coleman Brower DO [address] [place] [address] PCP - General Internal Medicine 01/05/23 Melinda Verduzco, STITCH BURNISHER [address] [place] [address] Referring Orthopedics 11/24/22 Management Trainee Relationship Specialty Start Date End Date Coleman Brower DO [address] [place] [address] PCP - General Internal Medicine 01/05/23 Melinda Verduzco, STITCH BURNISHER [address] [place] [address] Referring Orthopedics 11/24/22 Management Trainee Relationship Specialty Start Date End Date Coleman Brower DO [address] [facility] [place] [address] PCP - General Internal Medicine 01/05/23 Melinda Verduzco, CHISELER HEAD.STITCH BURNISHER [address] [place] [address] Referring Orthopedics 11/24/22 Team Status: Active Member Role Status Dates Coleman Brower DO Primary Care Provide r, Attending Provider Active Start: November 21, 2023 Team Status: Inactive Member Role Status Dates Coleman Brower DO Primary Care Provider Active Start: December 31, 2023 End: December 31, 2023 Mehrdad Mcmanus MD Attending Provider Active Start: December 31, 2023 End: December 31, 2023 Team Status: Active Member Role Status Dates Coleman Brower DO Primary Care Provider Active Start: December 31, 2023 Mehrdad Mcmanus MD Attending Provider, Other Provider Active Start: December 31, 2023 Team Status: Active Member Role Status Nader Brower DO Primary Care Provider Active Start: December 31, 2023 Imani Contreras CMA Attending Provider Active St art: December 31, 2023 Team Status: Inactive Member Role Status Dates Coleman Brower DO Primary Care Provider Active Start: January 24, 2024 End: January 24, 2024 Bird Kowalski MD Attending Provider Active St art: January 24, 2024 End: January 24, 2024 Team Status: Inactive Member Role Status Nader Brower DO Primary Care Provider Active Start: February 12, 2024 End: February 12, 2024 Chio Nichole MD Attending Provider Active Start: February 12, 2024 End: February 12, 2024 Team Status: Inactive Member Role Status Nader Brower DO Primary Care Provider Active Start: February 18, 2024 End: February 18, 2024 Sukhjinder Montesinos DO Attending Provider Active St art: February 18, 2024 End: February 18, 2024 Goals (unrecognized section and content) Goals may be documented in a n alternate section (unrecognized sect ion and content) No Status Records FoundNo Status Records FoundNo Status Records FoundNo Status Records FoundNo Status Records FoundNo Status Records FoundNo Status Records FoundNo Status Records FoundNo Status Records FoundNo Status Records Found INFORMATION SOURCE (unrecogn ized section and content) DATE CREATED AUTHOR 08/05/2022 [facility] DATE CREATED AUTHOR AUTHOR'S ORGANIZ ATION 06/13/2023 [facility] DATE CREATED AUTHOR AUTHOR'S ORGANIZ ATION 06/29/2023 [facility] DATE CREATED AUTHOR AUTHOR'S ORGANIZ ATION 09/20/2023 [facility] DATE CREATED AUTHOR AUTHOR'S ORGANIZ ATION 12/19/[address] [facility] DATE CREATED AUTHOR AUTHOR'S ORGANIZ ATION 12/24/2023 [facility] DATE CREATED AUTHOR AUTHOR'S ORGANIZ ATION 01/31/2024 [facility] DATE CREATED AUTHOR AUTHOR'S ORGANIZ ATION 02/03/2024 [facility] DATE CREATED AUTHOR AUTHOR'S ORGANIZ ATION 02/13/2024 [facility] DATE CREATED AUTHOR AUTHOR'S ORGANIZ ATION 04/04/2024 [facility] FOR RECORDS PERTAINING TO PATIENTS WHO [...] BE BASED ON THE PRIMARY CLINICAL RECORDS. [facility]. provides no warranty or guarantee of the accuracy or completeness of information in this document.
--- NOTE | 2024-04-19 12:25 | XR_ITS ---
The [address] [address] Patient Name: ESME KAMINSKI MRN: [id number] date: 1960 Sex: M Assigned Patient Location: ER Current Patient Location: ER Accession/Order Number: [id number] Exam Date: 04/19/2024 13:00 Report Date: 04/19/2024 14:24 At the request of: JODI JIM Procedure: XR ribs RT min 3V w CXR1V EXAM: XR ribs RT min 3V w CXR1V HISTORY: fall COMPARISON: Chest x-ray 06/13/2013, thoracic spine x-ray including portions of the ribs 12/19/2017 TECHNIQUE: Upright chest x-ray. AP, oblique views right RIBS. FINDINGS: Chest x-ray demonstrates cardiac enlargement sternotomy wires stable from previous. Lungs clear. No infiltrate or contusion. No pleural effusion or pneumothorax. No fracture seen. Right rib x-ray demonstrates normal mineralization is smooth cortical margins without displaced fracture. There are 12 full size ribs. XR/XR ribs RT min 3V w CXR1V IMPRESSION: 1. Chest x-ray without acute process. Cardiac enlargement felt to be chronic. No evidence lung injury. 2. No displaced rib fracture seen. Electronically authenticated by: ANSON YING Date: 04/19/2024 14:24
--- NOTE | 2024-04-19 12:25 | ED_ITS ---
HPI HPI - General Adult General Chief complaint: Trauma Stated complaint: RIGHT CHEST PAIN FOLLOWING FALL LAST NIGHT Time Seen by Provider: 04/19/24 12:09 History of Present Illness HPI narrative: 63-year-old male presents to the emergency department for pain in his right upper rib area. He fell last night carrying some pizza boxes but he does not know if he fell backwards or forwards. 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 It hurts more in certain positions and when he moves into certain positions. Related Data Allergies Allergy/AdvReac Type Severity Reaction Status Date / Time prednisone AdvReac Severe Unknown Verified 04/19/24 12:15 Opioid HPI Opioid Management Most Recent Opioid Data: No Data to Display Review of Systems ROS Narrative A ten point review of systems is negative except as noted above. PFSH PFSH Social History Little interest or pleasure in doing things: not at all Feeling down, depressed, or hopeless: not at all Exam Narrative Exam Narrative: Nurses note and vital signs reviewed and patient is not hypoxic. General: The patient appears in no apparent distress. Patient is sitting in a chair when I walk into the room. Skin: Warm, dry, no pallor noted. There is no rash noted. Head: Normocephalic, atraumatic Eye: Normal conjunctiva, no drainage Ears, Nose, Mouth, and Throat: oral mucosa is moist. Nares patent. Cardiovascular: Regular Rate and Rhythm Respiratory: Breath sounds are equal. He has no bruise or crepitus on his chest wall. Back: non-tender GI: Soft and nontender Musculoskeletal: The patient has no evidence of calf tenderness, no pitting edema, symmetrical pulses noted bilaterally Neurological: A&O, normal speech Psychiatric: Cooperative Constitutional Vital Signs, click to edit/add: Last Vital Signs Temp 98.2 F 04/19/24 12:15 Pulse 96 H 04/19/24 14:12 Resp 18 04/19/24 14:12 BP 142/86 H 04/19/24 14:12 Pulse Ox 96 04/19/24 14:12 O2 Del Method Room Air 04/19/24 12:15 Course Vital Signs Vital signs: Vital Signs Temperature 98.2 F 04/19/24 12:15 Pulse Rate 118 H 04/19/24 12:15 Respiratory Rate 18 04/19/24 12:15 Blood Pressure 143/101 H 04/19/24 12:15 Pulse Oximetry 95 04/19/24 12:15 Oxygen Delivery Method Room Air 04/19/24 12:15 Temperature 98.2 F 04/19/24 12:15 Pulse Rate 96 H 04/19/24 14:12 Respiratory Rate 18 04/19/24 14:12 Blood Pressure 142/86 H 04/19/24 14:12 Pulse Oximetry 96 04/19/24 14:12 Oxygen Delivery Method Room Air 04/19/24 12:15 Medical Decision Making MDM Narrative Medical decision making narrative: X-rays are negative per radiologist. He was recommended ice and either Tylenol or Motrin. Treatment diagnosis and follow-up were discussed with the patient. Differential Diagnosis Differential Diagnosis: Rib fracture, contusion, pneumothorax Imaging Data Rib x-ray: Radiologist's impression: ITS Impressions Ribs X-Ray 04/19/24 12:25 IMPRESSION: 1. Chest x-ray without acute process. Cardiac enlargement felt to be chronic. No evidence lung injury. 2. No displaced rib fracture seen. Electronically authenticated by: ANSON YING Date: 04/19/2024 14:24 Discharge Plan Discharge Chief Complaint: Trauma Clinical Impression: Chest wall contusion Patient Disposition: Home, Self-Care Time of Disposition Decision: 14:30 Condition: Good Mode of Transportation: Private Vehicle Print Language: Icelandic Instructions: Rib Contusion (ED) Referrals: Coleman Luz DO [Primary Care Provider] - 1 week
[2024-04-19 14:12] VITALS: BP 142/86; PULSE 96; O2SAT 96
== END 2024-04-19 14:32 | disposition home or self-care (01) ==
PROVIDERS: Emergency Provider Emergency Medicine; PCP Internal Medicine
DX: S20.211A Contusion of right front wall of thorax, initial encounter (principal); W18.39XA Other fall on same level, initial encounter
CPT/HCPCS: 71101; 99283

== ENCOUNTER 2024-05-12 13:25 | Outpatient (OUT) | payer MEDICARE, SELFPAY ==
--- NOTE | 2024-05-12 13:40 | XR_ITS ---
The [place] [id number] Patient Name: ESME KAMINSKI MRN: [id number] date: 1960 Sex: M Assigned Patient Location: RAD Current Patient Location: RAD Accession/Order Number: [id number] Exam Date: 05/12/2024 13:35 Report Date: 05/12/2024 13:58 At the request of: VITALIY BROWER Procedure: XR chest 2V PROCEDURE: XR chest 2V DATE: 05/12/2024 1:35 PM EST COMPARISONS: 04/19/2024 CLINICAL INDICATION: 63 years Male Cough FINDINGS: The heart is mildly enlarged and stable. The pulmonary vasculature is not congested. The right hemidiaphragm is elevated as before. The lungs are clear. There is no consolidating infiltrates to suggest pneumonia. There is no evidence of pleural effusion or pneumothorax. XR/XR chest 2V IMPRESSION: Stable cardiomegaly. Stable poststernotomy chest. Electronically authenticated by: LILIANA GLASS Date: 05/12/2024 13:58
== END 2024-05-12 13:26 | disposition home or self-care (01) ==
LOC: RAD 13:27
PROVIDERS: PCP Internal Medicine; Visit Provider Internal Medicine
DX: R05.9 Cough, unspecified (principal); I51.7 Cardiomegaly
CPT/HCPCS: 71046

== ENCOUNTER 2024-09-28 17:02 | Emergency (ER) | payer MEDICARE, SELFPAY ==
[2024-09-28] VITALS (44 sets, daily range): BP systolic 115–128; BP diastolic 90–99; PULSE 84–119; TEMP 37.3; O2SAT 95–99; BMI 30.7
--- NOTE | 2024-09-28 17:08 | ECG_ITS ---
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 Measurements Intervals [place] Rate: 106 P: -16600 MI: -97362 QRS: -3 QRSD: 110 T: 126 QT: 346 QTc: 408 Interpretive Statements [id number] Atrial fibrillation with rapid ventricular response 3633 Inferior myocardial infarction, probably old [address] depression, probably digitalis effect 9150 abnormal ECG Compared to ECG 07/27/2019 10:55:39 Sinus rhythm no longer present Myocardial infarct finding still present ST (T wave) deviation still present Electronically Signed On 09-28-2024 22:11:28 EDT by TEE BAIRES M.D.
--- OUTSIDE RECORDS SUMMARY | 2024-09-28 17:13 | XMS_ITS | CCD ---
Author Organization [facility] Care Team Providers Care Beater Tender Name Role Phone Pcp, No Primary Care Provider UnavailVitaliy Santoyo DO Primary Care Provider Sarai Mendez II Unavailable Jonathan Samano Unavailable Melinda Verduzco Unavailable DO Vitaliy Brower Primary Care Provider MD Sarai Mendez II Attending Provider [phone] DO Vitaliy Brower Attending Provider DO Vitaliy Brower Primary Care Provider DO Vitaliy Brower Attending Provider [phone] MD Chio Nichole Attending Provider Chio Nichole Unavailable DO Vitaliy Brower Primary Care Provider MD Jonathan Samano Attending Provider DO Vitaliy Brower Primary Care Provider STEPHEN Guzman Emergency Provider [phone] Vitaliy Brower Unavailable DO Vitaliy Brower Primary Care Provider MD Jonathan Samano Attending Provider [phone] STEPHEN Guzman Emergency Provider RASHAD Verduzco Attending Provider Jonathan Shrestha Unavailable DR VITALIY BROWER Attending Unavailable BALL, DR CEE Primary Care Unavailable BALL, DR CEE Admitting Unavailable INOCENTE, DR CEE Primary Care Unavailable MISC, DR JERNIGAN Consulting Unavailable INOCENTE, DR CEE Admitting Unavailable BALL, DR CEE Attending Unavailable BALL, DR CEE Consulting Unavailable BALL, DR CEE Primary Care Unavailable BALL, DR CEE Admitting Unavailable BALL, DR CEE Attending Unavailable BALL, DR CEE Primary Care Unavailable BALL, DR CEE Admitting Unavailable BALL, DR CEE Attending Unavailable Ball, DO Vitaliy Primary Care Provider MD Sarai Mendez II Attending Provider [phone] MD Jonathan Samano Attending Provider [phone] Inocente, DO Cee Primary Care Provider MD Sarai Georges Attending Provider [phone] LOWELL Holbrook Emergency Provider Ball, DO Vitaliy Primary Care Provider MD Sarai Mendez II Attending Provider Melinda Verduzco CNP Unavailable Inocente DOVitaliy E Primary Care Provider Inocente, DO Vitaliy Primary Care Provider MD Sarai Mendez II Attending Provider Inocente, DO Vitaliy Primary Care Provider MD Sarai Mendez II Attending Provider Sukhjinder Montesinos Unavailable Inocente, DO Cee Primary Care Provider MD Sarai Mendez II Attending Provider RASHAD Verduzco Attending Provider [phone] CHHAYA WHATLEY Referring Unavailable BALL, VITALIY E Primary Care Unavailable BALL, VITALIY E Primary Care Unavailable DAVID DWYER Attending Unavailable THERESA PRAKASH Attending UnavailTHERESA Payne Referring Unavailabl e BALL, VITALIY E Primary Care Unavailable SARAI VELASCO Attending Unavailable BALL, VITALIY E Referring Unavailable BALL, VITALIY E Primary Care Unavailable Ball, DO Vitaliy Primary Care Provider MD Sarai Mendez II Attending Provider RASHAD Verduzco Attending Provider PROVIDER, UNKNOWN Referring Unavailable VITALIY BROWER Primary Care Unavailable Vitaliy Brower DO E Primary Care Provider MD Daisy Mora Attending Provider MD Daisy Mora Referring Provider Vitaliy Brower DO E Primary Care Provider DO Vtialiy Brower Primary Care Provider MD Erin Suresh Emergency Provider MD Elliott Talley Admit Provider MD Elliott Talley Attending Provider MD Sally Alex Attending Provider Vitaliy Brower DO E Primary Care Provider SANTOS CABRERA Attending Unavailable DO Vitaliy Brower Primary Care Provider Luba MITCHELL.LINE PERSONMelinda Unavailable DO Vitaliy Brower Primary Care Provider MD Mehrdad Mcmanus Attending Provider [phone] MD Bird Kowalski Attending Provider DO Vitaliy Brower Primary Care Provider MD Mehrdad Mcmanus Attending Provider [phone] MD Bird Kowalski Attending Provider Vitaliy Brower DO Primary Care Provider Mehrdad Mcmanus MD Attending Provider Bird Kowalski MD Attending Provider Vitaliy Brower DO E Primary Care Provider Inocente LIPSCOMB Vitaliy Primary Care Provider Bird Kowalski MD Attending Provider Vitaliy Brower DO E Primary Care Provider Inocente LIPSCOMB Vitaliy Primary Care Provider Bird Kowalski MD Attending Provider BIRD KOWALSKI Admitting Unavailable BIRD KOWALSKI Attending Unavailable BALL, VITALIY E Primary Care Unavailable FILBIRD PRAJAPATI Admitting Unavailable FILBIRD PRAJAPATI Attending Unavailable BALL, VITALIY E Primary Care Unavailable FILBIRD PRAJAPATI Referring Unavailable BALL, VITALIY E Primary Care Unavailable FILBIRD PRAJAPATI Admitting Unavailable FILBIRD PRAJAPATI Attending Unavailable Cosmo Guzman APRN Emergency Provider Dionisio DOHERTY, Chio Moreno Attending Provider Andrea DOHERTY, Sarai Antunez Attending Provider Winnie Grande DO Emergency Provider [phone] Godwin DOHERTY, Lydia Admit Provider Godwin DOHERTY, Lydia Attending Provider Mary Ann Miller RN Other Provider Unavailable Kathy Valle DO Other Provider [phone] Yazmin DOHERTY, Lala Other Provider [phone] Juan Luis DOHERTY, Nehemiah Lovett Other Provider Daisy Mora MD Other Provider [phone] Cuauhtemoc DOHERTY, Dutch Other Provider eGno Corona APRN Other Provider Tami Steele MD Other Provider Lul DOHERTY, Arnaldo Herrera Other Provider Munir Foote MD Other Provider Jose Luis [facility] Other Provider [phone] TRABOULSSI, MOURHAF Attending Unavailable TRABOULSSI, MOURHAF Referring Unavailable BALL, VITALIY E Primary Care Unavailable TRABOULSSI, MOURHAF Attending Unavailable BALL, VITALIY E Primary Care Unavailable TRABOULSSI, MOURHAF Attending Unavailable TRABOULSSI, MOURHAF Referring Unavailable BALL, VITALIY E Primary Care Unavailable BIRD KOWALSKI Attending Unavailable TRABOULSSI, MOURHAF Referring Unavailable BALL, VITALIY E Primary Care Unavailable BIRD KOWALSKI Referring Unavailable BALL, VITALIY E Primary Care Unavailable Luba MITCHELL.LINE PERSON, Melinda Blake Unavailable Vitaliy Brower DO Primary Care Provider Daisy Mora MD Attending Provider HELADIO PINEDA Attending Unavailable BALL, VITALIY E Primary Care Unavailable HELADIO PINEDA Referring Unavailable BALL, VITALIY E Primary Care Unavailable HELADIO PINEDA Attending Unavailable INOCENTE, VITALIY E Primary Care Unavailable Bird Kowalski Admitting Unavailable Bird Kowalski Attending Unavailable Inocente, Vitaliy Primary Care Unavailable Chio Nichole Admitting Unavailable Chio Nichole Attending Unavailable Inocente, Vitaliy Primary Care Unavailable Sarai Mendez II Attending Unavailabl e Sarai Mendez II Admitting Unavailabl e Inocente, Vitaliy Primary Care Unavailable Inocente, Vitaliy Primary Care Unavailable Asaad, Imad Admitting Unavailable Asaad, Imad Attending Unavailable Cosmo Guzman Admitting Unavailable Cosmo Guzman Attending Unavailable Inocente, Vitaliy Primary Care Unavailable Inocente, Vitaliy Primary Care Unavailable Daisy Mora Admitting Unavailable Daisy Mora Attending Unavailable Mary Ann Miller Consulting Unavailable Lydia Connelly Admitting Unavailable Lydia Connelly Attending Unavailable Inocente, Vitaliy Primary Care Unavailable Mary Ann Miller Consulting Unavailable Kathy Valle Consulting Unavailable Lala Arce Consulting Unavailable Nehemiah Mcknight Consulting Unavail able Daisy Mora Consulting Unavailable Dutch Posadas Consulting Unavailab Geno Nevarez Consulting Unavailable Tami Steele Consulting Unavailable Arnaldo Mccarty Consulting Unavailab Munir Marin Consulting Unavailable Nicolle Amaya Consulting Unavailable Inocente, Vitaliy Primary Care Unavailable Bird Kowalski Admitting Unavailable Bird Kowalski Attending Unavailable Allergies Allergy Classification Reported Allergen(s) Allergy Type Date of Onset Reaction(s) Facility (20 sources) Acetaminophen / oxyCODONE Drug Allergy Unknown [facility] Other (20 sources) atorvastatin Drug Allergy 05-07-19 24 Unknown, Unknown Reaction [facility] (20 sources) predniSONE; Translations: [PREDNISONE] Drug Allergy 01-27-20 23 Other, Headache [facility] (20 sources) Simvastatin Drug Allergy 01-02-20 13 Unknown [facility] Other (1 source) patient allergy list reviewed by nurse or physicia Propensity to adverse reactions 02-18-20 13 Comment:Done [facility] Other (3 sources) Acetaminophen Drug Allergy 05-07-19 24 Unknown Reaction [facility] (3 sources) oxyCODONE Drug Allergy 05-07-19 24 Unknown Reaction [facility] Medications Current Medications Medication Drug Class(es) Dates Sig (Normalized) Sig (Original) 0.5 ML semaglutide 0.5 MG/ML Auto-Injector [Wegovy] (15 sources) Start: 10-03-2022 Start: 10-03-2022 inject 0.5 mL by sub cutaneous injection every week Wegovy 0.25 MG/0.5ML 0.5 mL Subcutaneous weekly for 30 days Sep, Active Acetaminophen (20 sources) Start: 01-29-2024 take 1 tablet by tobin every six hours as needed acetaminophen (Tylenol) tablet 650 mg Start: 01-31-2023 take 2 tablets by mo [facility] every eight hours for pain Acetaminophen 500 MG 2 tablets for pain Orally every 8 hrs for 30 days Med to Bed Upon Discharge DOS: 02/13/2023 Jan, Active Start: 06-17-2021 take 2 tablets by mo [facility] every eight hours for pain Acetaminophen 500 [...] tablet (20 sources) Xanthine Oxidase Inhibitor Start: 07-07-2024 take 2 tablets by mouth once allopurinol (ZYLOPRIM) 100 mg tablet Indications: Hyperuricemia , Idiopathic chronic gout of multiple sites without tophus Take 2 tablets by mouth every afternoon. 180 tablet 3 07/07/2024 Active Start: 01-03-2024 take 1 tablet by tobin th once daily Allopurinol 100 mg tablet Active 0 .ROUTE .COMPLEX 90 January 03, 2024 2:35pm TAKE 1 TABLET BY MOUTH EVERY DAY Start: 06-20-2021 End: 07-07-2024 take 1 tablet by mouth once daily in the morning Allopurinol 100 mg tablet Discontinued 100 MG PO Every morning June 20, 2021 12:00am January 03, 2024 2:35pm Comment on above: Take 1 tablet by tobin th every afternoon. ALPRAZolam 0.5 mg oral tablet (20 sources) Benzodiazepine Start: End: take 1 tablet by mouth once daily at bedtime ALPRAZolam (XANAX) 0.5 mg tablet Take 0.5 mg by mouth daily at bedtime. 12/12/2022 Active Start: 06-09-2022 ALPRAZolam 0.5 MG TAKE 1 TABLET BY MOUTH EVERY DAY AT BEDTIME Orally Once A Day for 90 days Jun, Active Start: 04-16-2022 take 1 tablet by tobin th once daily at bedtime ALPRAZolam 0.5 MG TAKE 1 TABLET BY MOUTH EVERY DAY AT BEDTIME for Apr, Active Start: 10-25-2012 End: 06-04-2023 take 1 tablet by mouth once daily at bedtime Alprazolam (Xanax) 0.25 mg Tablet Discontinued 0.25 MG PO Daily at bedtime January 29, 2017 12:00am June 04, 2023 1:08pm Comment on above: Take 0.5 mg by mouth daily at bedtime. Take 1 tablet by tobin th at bedtime as needed. apixaban 5 mg oral tablet (20 sources) Factor Xa Inhibitor Start: 08-13-2024 take 1 tablet by mouth every twelve hours Eliquis 5 mg tablet Take 1 tablet (5 mg) by mouth every 12 hours. 08/13/2024 Active Start: 08-13-2024 take 1 tablet by tobin th twice daily Apixaban (Eliquis) 5 mg Tablet Active 5 MG PO Twice daily 60 August 13, 2024 12:00am Start: 12-19-2023 End: 02-18-2024 take 1 tablet by mouth once daily at bedtime Apixaban (Eliquis) 5 mg tablet Discontinued 0 .ROUTE .COMPLEX 60 December 19, 2023 9:55pm February 18, 2024 12:15pm TAKE 1 TABLET BY MOUTH EVERY MORNING AND BEFORE BEDTIME FOR 30 DAYS Start: 05-18-2023 End: 09-13-2024 take 1 tablet by mouth once daily at bedtime ELIQUIS 5 mg tab(s) TAKE 1 TABLET BY MOUTH EVERY MORNING AND BEFORE BEDTIME FOR 30 DAYS 06/24/2023 09/13/2024 Discontinued (Course of therapy completed) Start: 05-18-2023 End: 01-29-2024 take 1 tablet by mouth twice daily Apixaban 5 mg tablet Discontinued 5 MG PO Twice daily June 28, 2023 12:00am December 19, 2023 9:55pm take 1 tablet by tobin th every twelve hours Eliquis 5 MG 1 tablet Orally Twice a day Active Comment on above: TAKE 1 TABLET BY TOBIN TH EVERY MORNING AND BEFORE BEDTIME FOR 30 DAYS Aspir-81 (20 sources) Aspir-81 Active Aspir-81 81 MG (20 sources) take 1 tablet by tobin th once daily take 1 tablet by mouth once anamaria y Aspir-81 81 MG 1 tablet Orally Once a day Active aspirin 81 mg oral tablet (20 sources) Platelet Aggregation Inhibitor, Nonsteroidal Anti-inflammatory Drug Start: 09-08-2024 take 1 tablet by mouth once daily Aspirin 81 mg tablet Active 81 MG PO Daily September 08, 2024 12:00am Start: 01-30-2024 take 81 mg by mouth once daily 81 mg, oral, Daily, First dose on Sun01/30/24 at 0900, Phase II/On Unit, Do not crush, chew, or split. Start: 01-29-2024 End: 01-29-2024 take 324 mg by mouth once 324 mg, oral, Once, On Sun at 1000, For 1 dose, Preprocedure Start: 06-17-2021 take 1 tablet by tobin th twice daily Aspirin 81 MG 1 tablet Orally BID for 35 days MED TO BED UPON DISCHARGE. DOS: 07/04/2021 Jun, Active Start: 01-29-2017 End: 08-13-2024 take 1 tablet by mouth once daily Aspirin 81 mg Tablet,Delayed Release (Dr/Ec) Discontinued 81 MG PO Daily January 29, 2017 12:00am August 13, 2024 3:20pm take 1 tablet by tobin two times weekly aspirin 81 mg EC tablet Take 1 tablet (81 mg) by mouth 2 times a week. Active Comment on above: Take 81 mg by mouth. atorvastatin 80 mg oral tablet (20 sources) HMG-CoA Reductase Inhibitor Start: 4 End: 5 take 1 tablet by mouth once daily in the evening Atorvastatin 80 mg tablet Active 0 .ROUTE .COMPLEX 90 July 02, 2024 6:52am TAKE 1 TABLET BY MOUTH ONCE EVERY EVENING Start: 01-29-2017 End: 09-19-2023 atorvastatin (LIPITOR) 80 mg tablet 01/04/2023 Active End: 01-05-2023 take 1 tablet by [...] Start: 06-17-2021 take 1 capsule by mo [facility] every twelve hours Cefadroxil 500 MG 1 tablet Orally every 12 hrs for 7 days MED TO BED UPON DISCHARGE. DOS: 07/04/2021 Jun, Active celecoxib 200 mg oral capsule (20 sources) Nonsteroidal Anti-inflammatory Drug Start: 09-13-2024 take 1 capsule by mouth twice daily celecoxib (CELEBREX) 200 mg capsule Indications: Idiopathic chronic gout of multiple sites without tophus , Pseudogout involving multiple joints , Chronic pain of both knees Take 1 capsule by mouth two times a day. 180 capsule 3 09/13/2024 Active Start: 06-20-2021 End: 09-13-2024 take 1 capsule by mouth once celecoxib (CELEBREX) 200 mg capsule Take 1 capsule by mouth every afternoon. 01/04/2023 09/13/2024 Discontinued Start: 06-17-2021 take 1 capsule by [facility] every twelve hours Celecoxib 200 MG 1 capsule with food Orally Twice a day for 30 day(s) MED TO BED UPON DISCHARGE. DOS: 07/04/2021 Jun, Active Comment on above: Take 1 capsule by [facility] every afternoon. cholecalciferol 0.05 mg oral tablet (1 source) Vitamin D Start: 08-02-19 take 1 tablet by mouth once Cholecalciferol (Vitamin D3) (D3 Dots) 50 mcg (2,000 unit) tablet Active 50 MCG PO every Sunday and July 12:00am clopidogrel 75 mg oral tablet (20 sources) [id number] Platelet Inhibitor Start: 08-14-19 take 1 tablet by mouth once daily Clopidogrel 75 mg Tablet Active 75 MG PO Daily August 13, 2024 12:00am Start: 01-30-2024 End: 08-01-2024 Clopidogrel 75 mg tablet Discontinued MG PO February 18, 2024 1:00am August 01, 2024 11:12am End: 03-05-2023 take 1 tablet by mouth once daily clopidogrel (PLAVIX) 75 mg ORAL tablet Take one(1) tablet daily. 0 03/05/2023 Discontinued (Course of therapy completed) Comment on above: Take one(1) tablet d aily. Diclofenac (4 sources) Nonsteroidal Anti-inflammatory Drug Start: 08-07-19 Diclofenac Sodium 1 % gel Active 2 GM TOPICAL .4-5 times a day as needed for knee pain 05 08August 06, 2024 12:00am docusate sodium 100 mg oral capsule (1 source) Start: 01-29-20 take 100 mg by mouth twice daily for constipation 100 mg, oral, 2 times daily, First dose on Sun01/29/24 at 2100, Phase II/On Unit, Bowel Regimen - for prevention of constipation Hold for loose stools Start: 01-29-2024 take 100 mg by mouth twice daily for constipation 100 mg, oral, 2 times daily, First dose on Sun01/29/24 at 2100, Phase II/On Unit, Bowel Regimen - for prevention of constipation Hold for loose stools docusate sodium 50 mg / sennosides, retirement 8.6 mg oral tablet (10 sources) Start: [...] BED UPON DISCHARGE. DOS: 07/04/2021 Jun, Active ergocalciferol 1.25 mg oral capsule (20 sources) Provitamin D2 Compound Start: 07-09-2023 End: 07-07-2024 ergocalciferol 50,000 unit capsule (VITAMIN D2, DRISDOL) Indications: Vitamin D deficiency (take by mouth with food twice a week, ONE CAPSULE ON SUNDAY AND ONE ON SUNDAY) FOR A TOTAL OF 10 WEEKS. Then once a week thereafter 24 capsule 1 07/07/2024 Active Start: 11-22-2022 take 1 capsule by mo ut every week as needed Ergocalciferol 1.25 MG (13981 UT) 1 capsule Orally Once a Week for 60 days Nov, Not-Taking/PRN Start: 03-25-2021 take 1 capsule by mo uth every week Vitamin D (Ergocalciferol) 1.25 MG (83723 UT) 1 capsule Orally once weekly for 8 weeks Mar, Active Comment on above: (take by mouth with food twice a week, ONE CAPSULE ON SUNDAY AND ONE ON SUNDAY) FOR A TOTAL OF 8 WEEKS. escitalopram 20 mg oral tablet (20 sources) Serotonin Reuptake Inhibitor Start: End: take 1 tablet by mouth once daily Escitalopram Oxalate 20 mg tablet Active 0 .ROUTE .COMPLEX June 14, 2024 5:03pm TAKE 1 TABLET BY MOUTH EVERY DAY Start: 06-29-2023 End: 12-23-2023 take 1 tablet by mouth once escitalopram oxalate (TAURUS PRO) 20 mg tablet Take 1 tablet by mouth every afternoon. 06/29/2023 Active Start: 06-28-2023 End: 06-29-2023 take 1 tablet by mouth once daily Escitalopram Oxalate 10 mg tablet Discontinued 0 .ROUTE .COMPLEX June 28, 2023 3:06pm June 29, 2023 10:36am TAKE 1 TABLET BY MOUTH EVERY DAY FOR 90 DAYS Start: 08-09-2022 End: 06-28-2023 take 1 tablet by mouth once daily at bedtime Escitalopram Oxalate 10 mg tablet Discontinued 10 MG PO Daily at bedtime January 26, 2023 12:00am June 28, 2023 3:07pm Comment on above: Take 1 tablet by tobin th every afternoon. famotidine 20 mg oral [...] (20 sources) Thiazide Diuretic, Aldosterone Antagonist Start: 09-08-2024 take 1 tablet by mouth once daily Spironolacton-Hydrochlorothiaz 25-25 mg tablet Active 1 TAB PO Daily September 08, 2024 12:00am Start: 04-08-2024 take 1 tablet by tobin th once daily in the morning spironolacton-hydroCHLOROthiaz (ALDACTAZ APOLLO) 25-25 mg per tablet TAKE 1 TABLET BY MOUTH EVERY DAY IN THE MORNING 90 tablet 1 04/08/2024 Active Start: 01-02-2023 End: 04-08-2024 take 1 tablet by mouth once daily in the morning spironolactone-hctz 25/25 (ALDACTAZIDE) 25-25 mg per tablet Take 1 tablet by mouth every morning. 01/25/2023 Active Comment on above: Take 1 tablet by tobin th every morning. irbesartan 150 mg oral tablet (20 sources) Angiotensin 2 Receptor Riri Start: 06-21-19 End: 06-28-19 24 irbesartan (AVAPRO) 150 mg tablet 01/04/2023 Active levothyroxine sodium 0.15 mg oral tablet (20 sources) l-Thyroxine Start: 03-20-20 take 1 tablet by mouth once daily Levothyroxine 150 mcg tablet Active 0 .ROUTE .COMPLEX March 20, 2024 10:44am TAKE 1 TABLET BY MOUTH EVERY DAY Start: 06-20-2021 End: 03-20-2024 take 1 tablet by mouth once levothyroxine (SYNTHROID) 150 mcg tablet Take 1 tablet by mouth every afternoon. 12/29/2022 Active Start: 01-29-2017 End: 06-20-2021 take 1 tablet by mouth once daily Levothyroxine (Synthroid) 25 mcg Tablet Discontinued 25 MCG PO Daily January 29, 2017 12:00am June 20, 2021 1:26pm take 1 tablet by tobin th in the morning levothyroxine (SYNTHROID, LEVOTHROID) 200 MCG tablet Take 1 tablet (200 mcg total) by mouth in the morning. Active take 1 tablet by tobin th once daily Levothyroxine Sodium 150 MCG TAKE 1 TABLET BY MOUTH EVERY DAY Active End: 01-05-2023 take 1 tablet by mouth once daily levothyroxine (SYNTHROID) 175 mcg tablet Take 175 mcg by mouth once daily. 0 01/05/2023 Discontinued (Course of therapy completed) take 1 tablet by tobin th every twenty-four hours Comment on above: Take 1 tablet by tobin th every afternoon. Take 175 mcg by mout h once daily. Magic Mouthwash (5 sources) Magic Mouthwash Active magnesium oxide 400 mg oral tablet (19 sources) Start: 06-13-2023 magnesium oxide (MAG-OX) 400 mg (241.3 mg magnesium) tablet Take 400 mg by mouth. 06/13/2023 Active Start: 05-02-2023 take 1 tablet by tobin th every twenty-four hours Magnesium Oxide 400 MG 1 tablet as needed Orally Once a day for 30 days Apr, Active Comment on above: Take 400 mg by mouth . Metoprolol (20 sources) beta-Adrenergic Riri Start: 03-20-2024 take 1 tablet by mouth once daily Metoprolol Succinate 50 mg tablet extended release 24 hr Active 0 .ROUTE .COMPLEX March 20, 2024 10:45am TAKE 1 TABLET BY MOUTH EVERY DAY Start: 03-20-2024 take 1 tablet by tobin th once daily Metoprolol Succinate 50 mg tablet extended release 24 hr Active 0 .ROUTE .COMPLEX 90 March 20, 2024 9:45am TAKE 1 TABLET BY MOUTH EVERY DAY Start: 12-29-2022 take 1 tablet by tobin th every hour metoprolol succinate ER (TOPROL XL) 50 mg 24 hr tablet Take 1 tablet by mouth every afternoon. 12/29/2022 Active Start: 02-09-2021 End: 03-20-2024 take 1 tablet by mouth once daily in the morning Metoprolol Succinate 50 mg tablet extended release 24 hr Discontinued 50 MG PO Every morning June 20, 2021 12:00am March 20, 2024 10:45am Start: 01-29-2017 End: 06-20-2021 take 1 tablet by mouth once daily Metoprolol Succinate (Toprol Xl) 25 mg Tablet Extended Release 24 Hr Discontinued 25 MG PO Daily January 29, 2017 12:00am June 20, 2021 1:27pm Metoprolol Tartr ate 25 MG (Prior Auth: Rx Ref#:[id number]) Oral for Active Comment on above: Take 1 tablet by tobin th every afternoon. morphine sulfate 15 mg extended release oral tablet (10 sources) Opioid Agonist Start: 02-01-2023 take 1 tablet by mouth every twelve hours for pain Morphine Sulfate ER 15 MG 1 tablet for breakthrough pain only Orally every 12 hrs for 5 days Med to Bed Upon Discharge DOS: 02/13/2023 Jan, Active Start: 06-17-2021 take 1 tablet by tobin th every twelve hours for pain Morphine Sulfate ER 15 MG 1 tablet for breakthrough pain only Orally every 12 hrs for 5 days MED TO BED UPON DISCHARGE. DOS: 07/04/2021 Jun, Active ondansetron 8 mg oral tablet (12 sources) Serotonin-3 Receptor Antagonist Start: 01-31-2023 take 1 tablet by mouth three times daily as needed for nausea Ondansetron HCl 8 MG 1 tablet as needed for nausea Orally Three times a day for 10 days Med to Bed Upon Discharge DOS: 02/13/2023 Jan, Active Start: 06-17-2021 take 1 tablet by tobin th three times daily as needed for nausea Ondansetron HCl 8 MG 1 tablet as needed for nausea Orally TID for 10 days MED TO BED UPON DISCHARGE. DOS: 07/04/2021 Jun, Active ondansetron ODT (Zofran-ODT) disintegrating tablet 4 mg (1 source) Start: 01-29-2024 take 1 tablet by mouth every eight hours as needed ondansetron ODT (Zofran-ODT) disintegrating tablet 4 mg oxyCODONE hydrochloride 5 mg oral tablet (10 sources) Opioid Agonist Start: 02-01-2023 take 1 tablet by mouth every four hours as needed for pain oxyCODONE HCl 5 MG 1 tablet as needed for pain Orally every 4 hrs for 10 days Med to Bed Upon Discharge DOS: 02/13/2023 Jan, Active Start: 06-17-2021 take 1 tablet by tobin th every four hours as needed for pain oxyCODONE HCl 5 MG 1 tablet as needed for pain Orally every 4 hrs for 10 days MED TO BED UPON DISCHARGE. DOS: 07/04/2021 Jun, Active pantoprazole 40 mg delayed release oral tablet (19 sources) Proton Pump Inhibitor Start: 07-01-2024 take 1 tablet by mouth once daily Pantoprazole 40 mg tablet,delayed release (DR/EC) Active 40 MG PO Daily 90 90 July 01, 2024 12:00am Start: 01-30-2024 pantoprazole ( ProtoNix) EC tablet 40 mg Start: 01-31-2023 take 1 tablet by tobin th every twenty-four hours Protonix 20 MG 1 tablet Orally Once a day for 30 days Jan, Active paxlovid (300/100) 20 x 150 mg & 10 x 100mg tablet therapy pack (2 sources) Start: 04-12-2023 Paxlovid (300/ 100) 20 x 150 MG & 10 x 100MG as directed Orally bid for 5 days Apr, Active perflutren lipid microspheres (Definity) injection 0.5-10 mL of dilution (1 source) Start: 01-29-2024 0.5-10 mL of d ilution, intravenous, Once in imaging, Starting on Sun01/29/24 at 0931, For 1 dose, CV Medications, Contrast - for use by imaging provider only. Prior to administration, Definity product must be activated. First, bring vial to room temperature. Then, shake vial for 45 seconds. Do not use if the 45 second activation cycle has not been completed. Following activation, the product will appear as a milky white suspension and may be used immediately. If not used within 5 minutes of activation, re-suspend by inverting and shaking the vial for 10 seconds. Discard unused product. Administration: Dilute 1.3 mL of activated DEFINITY with 8.7 mL of normal saline in a 10 mL syringe. Inject 0.5 mL of diluted DEFINITY when notified the images/film are unclear to enhance view of Left Ventricular borders. Repeat 0.5 mL of DEFINITY until clear images are obtained, not to exceed 10 mLs. Once images are obtained or limit of medication is reached, flush line with 10 mL of Normal Saline. polyethylene glycol [id number] mg powder for oral solution (10 sources) [...] Comment on above: TAKE 1 TABLET BY TOBIN TH ONCE A DAY WITH FOOD traMADol hydrochloride 50 mg oral tablet (11 sources) Opioid Agonist Start: 01-29-2024 take 1 tablet by mouth every six hours as needed 50 mg, oral, Every 6 hours PRN, pain moderate (4-6), first line, Starting on Sun01/29/24 at 1458, Phase II/On Unit, If ordered PRN for pain, nurse is permitted to administer this medication for higher pain scores based on patient preference? Yes Start: 02-01-2023 take 1 tablet by tobin th every six hours as needed for pain traMADol HCl 50 MG 1 tablet as needed for pain Orally every 6 hrs for 10 days Med to Bed Upon Discharge DOS: 02/13/2023 Jan, Active Start: 06-17-2021 take 1 tablet by tobin th every six hours as needed for [...] 500 mg tablet Active 0 .ROUTE .COMPLEX December 24, 2023 1:29pm TAKE 1 TABLET BY MOUTH EVERY DAY Start: 06-20-2021 End: 12-24-2023 take 1 tablet by mouth once valACYclovir (VALTREX) 500 mg tablet Take 1 tablet by mouth every afternoon. 06/29/2023 Active Comment on above: Take 1 tablet by tobin th every afternoon. Completed/Discontinued Medications Medication Drug [...] 01 09May 22, 2022 January 26, 2023 11:02am [id number] 200 actuat albuterol 0.09 mg/actuat metered dose inhaler (20 sources) beta2-Adrenergic Agonist Start: 06-28-2023 End: 08-02-2023 take 1 puff(s) by inhalation every six hours Albuterol Sulfate 90 mcg/actuation HFA aerosol inhaler Discontinued 2 PUFF INHALATION Every 6 hours June 28, 2023 12:00am August 02, 2023 9:18am Start: 09-16-2022 take 2 puff(s) by mo ut every six hours albuterol HFA (PROVENTIL HFA, [...] on above: inhale 2 puffs by mo ut every 6 hours amoxicillin 500 mg oral capsule (16 sources) Penicillin-class Antibacterial Start: 04-07-2024 End: 08-11-2024 Amoxicillin 500 mg capsule Discontinued 2000 MG PO As Directed April 07, 2024 1:00am August 11, 2024 2:39pm Start: 12-19-2018 Amoxicillin 50 0 MG 6 po 1 hour prior to dental and 3 po 6 hours after dental Orally as directed for 1 day Dec, Active amoxicillin 875 mg / clavulanate 125 mg oral tablet (20 sources) Penicillin-class Antibacterial Start: 07-30-2024 End: 08-11-2024 take 1 tablet by mouth every twelve hours Amoxicillin-Pot Clavulanate 875-125 mg tablet Discontinued 1 TAB PO Every 12 hours 20 July 30, 2024 12:00am August 11, 2024 2:39pm Start: 09-01-2023 End: 11-19-2023 take 1 tablet by mouth twice daily Amoxicillin-Pot Clavulanate 875-125 mg tablet Discontinued 1 TAB PO Twice daily 14 September 01, 2023 10:30am November 19, 2023 2:23pm atenolol 25 mg oral tablet (1 source) beta-Adrenergic Riri Start: 10-25-2012 End: 01-05-2023 take 1 tablet by mouth once daily atenolol 25 mg tablet Take 1 tablet by mouth once daily. 0 10/25/2012 01/05/2023 Discontinued (Course of therapy completed) Comment on above: Take 1 tablet by tobin once daily. benzonatate 200 mg oral capsule (11 sources) Non-narcotic Antitussive Start: 05-14-2024 End: 08-01-2024 take 1 capsule by mouth three times daily Benzonatate 200 mg capsule Discontinued 200 MG PO Three times daily 30 May 14, 2024 1:00am August 01, 2024 11:12am ceFAZolin 2000 mg injection (1 source) Cephalosporin Antibacterial Start: 01-29-2024 End: 01-29-2024 2 g, intravenous, at 100 mL/hr, Administer over 30 Minutes, Once, On Sun01/29/24 at 1000, For 1 dose, Preprocedure, Administer within 60 minutes prior to incision. Duplex bag - activate before hanging., Dosing of this medication varies based on severity of illness. Does this patient have sepsis or concern for sepsis (probable or documented infection plus systemic manifestations of infection)? No, Suspected Indication (Select all that apply): Surgical Prophylaxis, Indications: Surgical Prophylaxis Codeine / guaiFENesin (14 sources) Opioid Agonist Start: 03-17-2024 End: 08-01-2024 take 1 mL by mouth every six hours as needed for cough Codeine-Guaifenesin 10-100 mg/5 mL liquid Discontinued 10 ML PO Every 6 hours as needed for cough 200 March 17, 2024 1:00am August 01, 2024 11:12am Start: 03-17-2024 take 1 mL by mouth e very six hours as needed for cough Codeine-Guaifenesin 10-100 mg/5 mL liquid Active 10 ML PO Every 6 hours as needed for cough 200 March 17, 2024 1:00am Start: 03-17-2024 take 1 mL by mouth e very six hours as needed for cough Codeine-Guaifenesin 10-100 mg/5 mL liquid Active 10 ML PO Every 6 hours as needed for cough 200 March 17, 2024 12:00am Start: 08-25-2022 take 10 mL by mouth once at bedtime as needed for cough guaiFENesin-Codeine 100-10 MG/5ML 10 mL as needed Orally q HS as needed for cough for 7 days August, Active colchicine 0.6 mg oral capsule (20 sources) Start: 08-02-2023 End: 2023 take 1 capsule by mouth every other day Colchicine 0.6 mg capsule Discontinued 0.6 MG PO .every other day August 02, 2023 12:00am 2023 9:21am Start: 08-02-2023 take 0.6 mg by mouth once anamaria y Colchicine Active 0.6 MG PO Daily August 02, 2023 12:00am Start: 07-05-2023 End: 09-13-2024 take 1 tablet by mouth twice daily colchicine 0.6 mg tablet Indications: Idiopathic chronic gout of multiple sites without tophus Take 1tab by mouth up to twice a day as tolerated. May cause diarrhea. 60 tablet 3 07/05/2023 09/13/2024 Discontinued (Course of therapy completed) Start: 02-07-2010 take 1 tablet by tobin once daily colchicine 0.6 mg ORAL tablet [...] tablet Discontinued 5 MG PO Daily June 28, 2023 12:00am August 02, 2023 9:17am Start: 06-12-2022 Valium 5 MG ta ke 1 tablet 1/2 hour prior to MRI . May repeat if needed. Orally Jun, Active take 1 tablet by tobin every twenty-four hours diazePAM 5 MG 1 tablet as needed Orally Once a day Active doxycycline hyclate 100 mg oral capsule (20 sources) Tetracycline-class Drug Start: 03-17-2024 End: 08-01-2024 take 1 capsule by mouth twice daily Doxycycline Hyclate 100 mg capsule Discontinued 100 MG PO Twice daily May 02, 2024 3:47pm August 01, 2024 11:12am Start: 03-29-2023 take 1 capsule by mo [facility] every twelve hours Doxycycline Hyclate 100 MG 1 capsule Orally Twice a day for 7 days Mar, Active Start: 03-07-2023 take 1 tablet by tobin every twelve hours Doxycycline Hyclate 100 MG 1 tablet Orally Twice a day for 14 days Feb, Active Start: 10-25-2022 take 1 capsule by [facility] twice daily Doxycycline Hyclate 100 MG 1 capsule Orally twice daily for 10 days Jan, Active Start: 05-29-2022 take 1 capsule by [facility] twice daily Doxycycline Hyclate 100 MG 1 capsule Orally twice daily for 7 days August, Active EPINEPHrine 0.01 mg/ml / lidocaine hydrochloride 20 mg/ml injectable solution (1 source) Antiarrhythmic, alpha-Adrenergic Agonist, beta-Adrenergic Agonist, Catecholamine, Amide Local Anesthetic Start: 01-29-2024 End: 01-29-2024 5 mL, subcutaneous, Once as needed, to oozing access site, Starting on Sun01/29/24 at 1458, For 1 dose, Phase II/On Unit, Inject at site of bleed hydroCHLOROthiazide 25 mg / triamterene 37.5 mg oral capsule (20 sources) Potassium-sparing Diuretic, Thiazide Diuretic Start: 06-20-2021 End: 06-28-2023 take 1 capsule by mouth once daily in the morning Triamterene-[place] chlorothiazid 37.5-25 mg capsule Discontinued 1 CAP PO Every morning June 20, 2021 12:00am June 28, 2023 4:16pm take 1 capsule by mouth every tw enty-four hours Comment on above: TAKE 1 CAPSULE BY [facility] EVERY DAY IN THE MORNING FOR 30 DAYS iohexol (OMNIPaque) 350 mg iodine/mL solution 70 mL (1 source) Start: 4 End: 4 70 mL, intravenous, Once in imaging, Starting on Sun01/29/24 at 0922, For 1 dose iohexol (OMNIPaque) 350 mg iodine/mL solution 85 mL (1 source) Start: 5 End: 5 85 mL, intravenous, Once in imaging, Starting on Sun06/13/24 at 1424, For 1 dose lisinopril 10 mg oral tablet (20 sources) Angiotensin Converting Enzyme Inhibitor Start: 7 End: 2 take 1 tablet by mouth once daily Lisinopril 10 mg Tablet Discontinued 10 MG PO Daily January 29, 2017 12:00am June 20, 2021 1:24pm take 1 tablet by tobin th every twenty-four hours Lisinopril 20 MG 1 tablet Orally Once a day Active meloxicam 15 mg oral tablet (9 sources) Nonsteroidal Anti-inflammatory Drug Start: 08-06-2024 End: 09-08-2024 take 1 tablet by mouth once daily Meloxicam 15 mg tablet Discontinued 15 MG PO daily 30 September 02, 2024 12:00am September 08, 2024 11:58am Start: 11-17-2013 End: 03-05-2023 take 1 tablet by mouth once daily meloxicam 7.5 mg tablet Take 1 tablet by mouth once daily. 30 tablet 1 11/17/2013 03/05/2023 Discontinued (Course of therapy completed) Comment on above: Take 1 tablet by tobin th once daily. methylPREDNISolone 4 mg oral tablet (20 sources) Corticosteroid Start: 2024 End: 2024 take 1 tablet by mouth twice daily Methylprednisolone 4 mg tablet Discontinued 4 MG PO Twice daily September 08, 2024 12:00am September 09, 2024 10:10am Start: 03-23-2024 End: 08-11-2024 take 1 tablet by mouth twice daily Methylprednisolone 4 mg tablet Discontinued 0 .ROUTE .COMPLEX 60 March 23, 2024 10:17am August 11, 2024 3:23pm TAKE 1 TABLET BY MOUTH TWICE A DAY FOR 30 DAYS Start: 03-23-2024 End: 03-23-2024 take 1 tablet by mouth twice daily Methylprednisolone 4 mg tablet Discontinued 4 MG PO Twice daily 60 March 23, 2024 1:00am March 23, 2024 10:17am Start: 12-15-2023 End: 08-19-2024 methylPREDNISolone (MEDROL) 4 mg Indications: Elevated sed rate , Elevated C-reactive protein (CRP) , PMR (polymyalgia rheumatica) ([facility]) Day 1=6tabs with food, Day 2=5tabs, Day 3=4tabs, Day 4=3tabs, Day 5=2tabs, Day 6=1tab, No NSAIDs on med 21 tablet 1 12/15/2023 Active Start: 09-05-2023 End: 12-13-2023 methylPREDNISolone (MEDROL) 4 mg Indications: Elevated sed rate , Elevated C-reactive protein (CRP) , PMR (polymyalgia rheumatica) ([facility]) Day 1=6tabs with food, Day 2=5tabs, Day 3=4tabs, Day 4=3tabs, Day 5=2tabs, Day 6=1tab, No NSAIDs on med 21 tablet 1 09/05/2023 12/13/2023 Discontinued Start: 07-05-2023 End: 02-18-2024 take 1 tablet by mouth twice daily Methylprednisolone (Medrol) 4 mg tablet Discontinued 4 MG PO Twice daily August 01, 2023 12:00am December 20, 2023 2:53pm Start: 07-05-2023 take 2 tablets by mo uth once daily methylPREDNISolone (Medrol) 4 mg tablet Take 2 tablets (8 mg) by mouth once daily. 07/05/2023 Active Start: 07-05-2023 End: 09-05-2023 take 1 [...] 06, 2023 2:35pm take 1 tablet by tobin th once daily methylPREDNISolone 2 MG 1 tablet w/ food Orally daily for 14 days Active Comment on above: TAKE 1 TABLET BY TOBIN TH WITH FOOD DAILY TAKE 1 TABLET BY TOBIN TH WITH FOOD DAILY FOR 14 DAYS take 1 tablet by tobin th every day with food Alternate 4mg [...] a day for 10 days Jan, Active omeprazole 40 mg delayed release oral capsule (20 sources) Proton Pump Inhibitor Start: 07-01-2024 End: 07-01-2024 take 1 capsule by mouth once daily Omeprazole 40 mg capsule,delayed release(DR/EC) Discontinued 40 MG PO Daily 90 90 July 01, 2024 12:00am July 01, 2024 4:31pm take 1 capsule by mouth once elda ly Omeprazole 40 MG 1 capsule 30 minutes before morning meal Orally Once a day Active sildenafil 100 mg oral tablet (20 sources) Phosphodiesterase 5 Inhibitor Start: 06-28-2023 End: 08-11-2024 take 1 tablet by mouth once daily as needed Sildenafil 100 mg tablet Discontinued 100 MG PO Daily as needed for sexual activity June 28, 2023 12:00am August 11, 2024 2:41pm Start: 10-03-2022 take 1 tablet by tobin once daily as needed Sildenafil Citrate 100 MG 1 tablet as needed Orally Once a day as needed for 30 days Sep, Active Sod Picosulf-Mag Ox-Citric Ac (16 sources) Start: 12-06-2023 End: 12-31-2023 take 1 mL by mouth once daily in the morning Sod Picosulf-Mag Ox-Citric Ac (Clenpiq) 10 mg-3.5 gram- 12 gram/175 mL solution Discontinued 175 ML PO Every morning 350 1 December 05, 2023 11:00pm December 31, 2023 9:38am Follow instructions given by office Start: 12-06-2023 End: 12-31-2023 take 1 mL by mouth once daily in the morning Sod Picosulf-Mag Ox-Citric Ac (Clenpiq) 10 mg-3.5 gram- 12 gram/175 mL solution Discontinued 175 ML PO Every morning 350 1 December 06, 2023 12:00am December 31, 2023 [...] 05-23-2016 Start: 05-23-2016 Kenalog -40 mg May, valsartan 160 mg oral tablet (4 sources) Angiotensin 2 Receptor Riri Start: 09-08-2024 End: 09-09-2024 Valsartan 160 mg Tablet Discontinued 80 MG PO Daily September 08, 2024 12:00am September 09, 2024 10:12am Start: 08-13-2024 take 0.5 tablet by m outh in the morning valsartan (Diovan) 160 mg tablet Take 0.5 tablets (80 mg) by mouth early in the morning.. 08/13/2024 Active Start: 08-13-2024 End: 09-08-2024 take 1 tablet by mouth once daily Valsartan 160 mg Tablet Discontinued 160 MG PO Daily August 13, 2024 12:00am September 08, 2024 11:58am Problems Active Problems Problem Classification Problem Date Documented Date Episodic/Chronic Abdominal pain (20 sources) Indigestion; Translations: [Epigastric pain] Onset: 7 11-19-2023 Episodic Acute bronchitis (20 sources) Acute bronchitis due to other specified organisms; Translations: [Acute bronchitis] Onset: 5 Episodic Acute posthemorrhagic anemia (1 source) Acute posthemorrhagic anemia Episodic Anxiety disorders (20 sources) Generalized anxiety disorder; Translations: [Generalized anxiety disorder] 06-04-2023 Chronic Aortic; peripheral; and visceral artery aneurysms (9 sources) Aortic root dilatation; Translations: [Thoracic aortic ectasia] Onset: 4 02-14-2024 Chronic Blindness and vision defects (1 source) Visual impairment; Translations: [Unspecified visual loss] Chronic Cardiac dysrhythmias (20 sources) Persistent atrial fibrillation; Translations: [Other persistent atrial fibrillation] Onset: 4 Resolved: 4 06-28-2023 Chronic Comment on above: d/t medication from covid d/t medication from COVID,Watchman 01/2024 Watchman 01/2024 Chronic ulcer of skin (1 source) Non-pressure chronic ulcer of unspecified part of unspecified lower leg with unspecified severity Chronic Coagulation and hemorrhagic disorders (16 sources) Purpura of skin co-occurrent and due to vascular fragility; Translations: [Other nonthrombocytopenic purpura] 07-30-2024 Episodic Complication of device; implant or graft (16 sources) Arteriosclerosis of autologous vein coronary artery bypass graft; Translations: [Atherosclerosis of coronary artery bypass graft(s) without angina pectoris] Onset: 5 Resolved: 2 12-26-2017 Chronic Complication of device; implant or graft (1 source) Pain due to internal orthopedic prosthetic devices, implants and grafts, initial encounter Episodic Conditions associated with dizziness or vertigo (9 sources) Meniere's disease; Translations: [Meniere's disease, bilateral] Chronic Coronary atherosclerosis and other heart disease (20 sources) Coronary arteriosclerosis; Translations: [Atherosclerotic heart disease of [place] coronary artery without angina pectoris] Onset: 4 10-29-2013 Chronic Deficiency and other anemia (3 sources) Anemia of chronic disease; Translations: [Anemia in other chronic diseases classified elsewhere] 01-05-2023 Chronic Deficiency and other anemia (1 source) Anemia in other chronic diseases classified elsewhere; Translations: [Anemia of chronic disease] Onset: 5 Chronic Diseases of mouth; excluding dental (1 source) Glossitis Episodic Disorders of lipid metabolism (20 sources) Hyperlipidemia; Translations: [Hyperlipidemia, unspecified] Onset: 4 10-29-2013 Chronic Diverticulosis and diverticulitis (20 sources) Diverticulitis of gastrointestinal tract; Translations: [Diverticulitis [...] urinary tract symptoms [LUTS]] Onset: 7 Chronic Immunizations and screening for infectious disease (20 sources) Vaccination given; Translations: [Encounter for immunization] Onset: 3 01-05-2023 Episodic Joint disorders and dislocations; trauma-related (1 source) Current tear of medial cartilage AND/OR meniscus of knee; Translations: [Tear of medial cartilage or meniscus of knee, current] Episodic Mood disorders (20 sources) Recurrent major depressive episodes, mild ; Translations: [Major depressive disorder, recurrent, mild] Chronic Nausea and vomiting (20 sources) Nausea; Translations: [Nausea] 01-30-2017 Episodic Nonspecific chest pain (7 sources) Chest pain; Translations: [Chest pain, unspecified] Onset: 5 08-11-2024 Episodic Nutritional deficiencies (16 sources) Vitamin D deficiency; Translations: [Vitamin D deficiency, unspecified] Onset: 5 01-05-2023 Chronic Nutritional deficiencies (2 sources) Cobalamin deficiency; Translations: [Deficiency of other specified B group vitamins] 01-05-2023 Episodic Osteoarthritis (20 sources) Osteoarthritis; Translations: [Unspecified osteoarthritis, unspecified site] Onset: 4 Resolved: 2 10-29-2013 Chronic Osteoporosis (5 sources) Primary osteoporosis; Translations: [Age-related osteoporosis without current pathological fracture] Onset: 4 01-05-2023 Chronic Other aftercare (20 sources) Patient encounter status; Translations: [Aftercare following joint replacement surgery] 06-05-2023 Chronic Other aftercare (14 sources) Aftercare following joint replacement surgery; Translations: [Aftercare following joint replacement] Chronic Other aftercare (3 sources) Other exterminator (current) drug therapy; Translations: [OTH [facility] CURRENT DRUG THERAPY] Onset: 3 Episodic Other aftercare (2 sources) Long-term current use of drug therapy; Translations: [Other intermediate (current) drug therapy] Episodic Other aftercare (20 sources) Long-term current use of systemic steroid; Translations: [manager terminal (current) use of 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] Onset: 3 01-05-2023 Episodic Other aftercare (8 sources) Long-term current use of anticoagulant; Translations: [manager terminal (current) use of 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] 07-27-2023 Episodic Other aftercare (3 sources) H/O: high risk medication; Translations: [Other exterminator (current) drug therapy] 06-30-2024 Episodic Other circulatory disease (17 sources) Presence of other cardiac implants and grafts; Translations: [Other specified cardiac device in situ] Onset: 4 01-29-2024 Chronic Other circulatory disease (9 sources) History [...] Presence of left artificial hip joint; Translations: [Hip joint replacement] Onset: 2 Resolved: 2 Chronic Other connective [...] hip joint; Translations: [Total hip replacement Prosthesis] Chronic Other connective tissue disease (1 source) Presence of left artificial knee joint Chronic Other connective tissue disease (6 sources) History of revision of left total hip arthroplasty; Translations: [Presence of left artificial hip joint] 08-04-2024 Chronic Other connective tissue disease (3 sources) Myalgia, unspecified site; Translations: [MYALGIA UNSPECIFIED SITE] Onset: 3 Episodic Other connective tissue disease (20 sources) Pain of bilateral hands; Translations: [Pain in right hand] Onset: 3 01-05-2023 Episodic Other connective tissue disease (20 sources) Swelling of hand; Translations: [Other specified soft tissue disorders] Onset: 3 01-05-2023 Episodic Other connective tissue disease (1 source) Pain in left lower leg Episodic Other connective tissue disease (18 sources) Disorder of rotator cuff; Translations: [Unspecified rotator cuff tear or rupture of right shoulder, not specified as traumatic] 10-02-2023 Episodic Other connective tissue disease (1 source) Biceps tendinitis; Translations: [Bicipital tendinitis, right shoulder] 10-02-2023 Episodic Other connective tissue disease (20 sources) Bicipital tendinitis, right shoulder; Translations: [Bicipital tenosynovitis] 10-02-2023 Episodic Other connective tissue disease (5 sources) Unspecified rotator cuff tear or rupture of right shoulder, not specified as traumatic; Translations: [Disorders of bursae and tendons in shoulder region, unspecified] 10-02-2023 Episodic Other connective tissue disease (1 source) Bilateral weakness of upper limbs; Translations: [Other symptoms and signs involving the musculoskeletal system] 06-30-2024 Episodic Other connective tissue disease (8 sources) Other symptoms and signs involving the musculoskeletal system; Translations: [Other musculoskeletal symptoms referable to limbs] Onset: 5 06-30-2024 Episodic Other connective tissue disease (7 sources) Hand pain; Translations: [Pain in left hand] 08-04-2024 Episodic Other connective tissue disease (9 sources) Pain in left hand; Translations: [Pain in limb] Onset: 3 08-04-2024 Episodic Other disorders of stomach and duodenum [...] and blood-forming organs] Chronic Other hematologic conditions (13 sources) Other specified diseases of blood and blood-forming organs; Translations: [Other specified diseases of blood and blood-forming organs] Onset: 3 Chronic Other hematologic conditions (9 sources) Macrocytosis - no anemia; Translations: [Other specified diseases of blood and blood-forming organs] 07-01-2024 Chronic Other hematologic conditions (8 sources) ESR raised; Translations: [Elevated erythrocyte sedimentation rate] 01-05-2023 Episodic Other hematologic conditions (1 source) Elevated erythrocyte sedimentation rate; Translations: [Elevated sed rate] Onset: 5 Episodic Other injuries and conditions due to [...] inflammatory response syndrome, unspecified] 08-30-2023 Episodic Other injuries and conditions due to external causes (8 sources) Contusion; Translations: [Other injury of unspecified body region, initial encounter] 08-01-2024 Episodic Other liver diseases (1 source) Finding of creatine kinase level; Translations: [Abnormal levels of other serum enzymes] 01-05-2023 Episodic Other liver diseases (1 source) Enzyme level - finding; Translations: [Abnormal levels of other serum enzymes] 01-05-2023 Episodic Other lower respiratory disease (14 sources) Cough; Translations: [Cough] 03-17-2024 Episodic Other male genital disorders (8 sources) [...] chronic pain] Chronic Other nervous system disorders (9 sources) Other chronic pain; Translations: [Other chronic pain G89.29] Onset: 1 Resolved: 1 Chronic Other non-traumatic joint disorders (20 sources) Derangement of left shoulder joint; Translations: [Other specific joint derangements of left shoulder, not elsewhere classified] 06-28-2023 Chronic Other non-traumatic joint disorders (4 sources) Other specific joint derangements of left shoulder, not elsewhere classified Chronic Other non-traumatic joint disorders (20 sources) Rotator cuff arthropathy of left shoulder; Translations: [Other specific arthropathies, not elsewhere classified, left shoulder] Onset: 3 01-05-2023 Chronic Other non-traumatic joint disorders (4 sources) Pain in left hip; Translations: [Left hip pain M25.552] Onset: 1 Resolved: 1 Episodic Other non-traumatic joint disorders (5 sources) Pain in right hip; Translations: [Right [...] unspecified joint Episodic Other non-traumatic joint disorders (19 sources) Pain in right knee; Translations: [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, lower leg] Onset: 3 03-05-2023 Episodic Other non-traumatic joint disorders (8 sources) Hip pain; Translations: [Pain in right hip] Onset: 3 01-05-2023 Episodic Other non-traumatic joint disorders (1 source) Swollen knee region; Translations: [Effusion, right knee] 09-26-2024 Episodic Other nutritional; endocrine; and metabolic disorders (20 sources) Obese class II; Translations: [Body mass index (BMI) 36.0-36.9, adult] Onset: 6 Chronic Other nutritional; endocrine; and metabolic disorders (16 sources) Severe obesity; Translations: [Morbid (severe) obesity due to excess calories] Onset: 2 05-10-2021 Chronic Other nutritional; endocrine; and metabolic disorders (20 sources) Body mass index 30+ - obesity; [...] Chronic Other nutritional; endocrine; and metabolic disorders (20 sources) Hypomagnesemia; Translations: [Hypomagnesemia] 06-28-2023 Chronic Other nutritional; endocrine; and metabolic disorders (1 source) Hypomagnesemia Chronic Other nutritional; endocrine; and metabolic disorders (2 sources) Body mass index (BMI) 32.0-32.9, adult; Translations: [Body mass index (BMI) 32.0-32.9, adult] Onset: 5 Chronic Other nutritional; endocrine; and metabolic disorders (2 sources) Body mass index (BMI) 35.0-35.9, adult; Translations: [Body mass index (BMI) 35.0-35.9, adult] Onset: 4 Chronic Other nutritional; endocrine; and metabolic disorders (4 sources) Hyperuricemia; Translations: [Hyperuricemia without signs of inflammatory arthritis and tophaceous disease] 01-05-2023 Episodic Other nutritional; endocrine; and metabolic disorders (1 source) Hyperuricemia without signs of inflammatory arthritis and tophaceous disease; Translations: [Hyperuricemia] Onset: 5 Episodic Other screening for suspected conditions (not [...] syndrome; Translations: [Obstructive sleep apnea (adult) (pediatric)] 06-28-2023 Chronic Residual codes; unclassified (8 sources) Obstructive sleep apnea (adult) (pediatric); Translations: [Obstructive sleep apnea (adult)(pediatric)] Chronic Residual codes; unclassified (2 sources) Insomnia; Translations: [Insomnia, unspecified] Episodic Residual codes; unclassified (9 sources) Never smoked tobacco; Translations: [Other specified health status] Onset: 4 10-18-2023 Episodic Rheumatoid arthritis and related disease (20 [...] disc disorders; other back problems (20 sources) Cervicalgia; Translations: [Spinal stenosis of lumbar region] Onset: 8 Episodic Sprains and strains (20 sources) Strain of muscle(s) and tendon(s) of [...] Onset: 4 10-29-2013 Chronic Transient cerebral ischemia (16 sources) Vertebrobasilar territory transient ischemic attack; 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 This puts you at a higher risk for infection, illness, falls, and other injuries. Here are four ways to help you reduce your risk of frailty: 1. IDENTIFY EARLY SIGNS OF FRAILTY Discuss contributing factors and concerns with your doctor 2. BE ACTIVE Walking and light strengthening exercises will help reduce weakness 3. EAT WELL Aim for three healthy meals a day that are high in protein 4. THINK POSITIVE Keep your mind active by being sociable and continuing to learn References: Stay Strong: Four Ways to Beat the Frailty Risk https://www.[facility].org/health/wellness- and-prevention/stay-stro pl-lclw-lijx-to-beat-the -fra ilty-risk 08-12-2024 Viral infection (2 sources) Molluscum contagiosum infection; Translations: [Molluscum contagiosum] Episodic Past or Other Problems Problem Classification Problem Date Documented Da te Episodic/Chronic Conditions associated with dizziness or vertigo (10 sources) Benign paroxysmal positional vertigo; Translations: [Benign paroxysmal vertigo, left ear] Onset: 08-08-2019 08-08-2019 Episodic Congestive heart failure; nonhypertensive (8 sources) Heart failure; Translations: [Heart failure, unspecified] Resolved: 10-20-2021 10-20-2021 Chronic Coronary atherosclerosis and other heart disease (2 sources) Presence of aortocoronary bypass graft; Translations: [Presence of aortocoronary bypass graft] Onset: 07-27-2023 Episodic Esophageal disorders (6 sources) Esophageal disorders; Translations: [Gastro-esophageal reflux disease with esophagitis, without bleeding] Onset: 01-08-2017 Malaise and fatigue (3 sources) Other fatigue; Translations: [Malaise and fatigue] Onset: 02-02-2016 Episodic Open wounds of extremities (2 sources) Puncture wound without foreign body of left index finger without damage to nail, subsequent encounter; Translations: [Puncture wound without foreign body of left index finger without damage to nail, subsequent encounter] Resolved: 08-09-2020 Episodic Other aftercare (2 sources) Encounter for follow-up examination after completed treatment for conditions other than malignant neoplasm; Translations: [Encounter for follow-up examination after completed treatment for conditions other than malignant neoplasm] Onset: 01-28-2024 Episodic Other connective tissue disease (3 sources) Pain in right hand; Translations: [Bilateral hand pain] Onset: 09-12-2021 Resolved: 09-12-2021 Episodic Other connective tissue disease (1 source) Rupture of tendon of biceps, long head; Translations: [Nontraumatic rupture of tendons of biceps (long head)] Onset: 02-02-2016 Episodic Other connective tissue disease (2 sources) Nontraumatic rupture of rotator cuff of left shoulder; Translations: [Unspecified rotator cuff tear or rupture of left shoulder, not specified as traumatic] Onset: 06-04-2015 Episodic Other gastrointestinal disorders (1 source) Diarrhea; Translations: [Diarrhea] Onset: 03-15-2017 Episodic Other male genital disorders (2 sources) Hemospermia; Translations: [Hematospermia] Onset: 07-10-2016 Episodic Other non-traumatic joint disorders (19 sources) Swelling of knee joint; Translations: [Effusion, unspecified knee] Onset: 06-01-2009 Episodic Other non-traumatic joint disorders (4 sources) Shoulder joint pain; Translations: [Pain in right shoulder] Onset: 06-04-2015 Episodic Other non-traumatic joint disorders (13 sources) Pain in right hip joint; Translations: [Pain in right hip] Onset: 01-05-2023 01-05-2023 Episodic Other non-traumatic joint disorders (2 sources) Pain in left knee; Translations: [Chronic pain of both knees] Onset: 03-05-2023 Episodic Residual codes; unclassified (2 sources) Other specified health status; Translations: [Other specified health status] Onset: 10-18-2023 Episodic Unclassified (5 sources) Onset: 12-19-2023 12-19-2023 Viral infection (1 source) COVID-19 Results Test Name Value Interpretation Reference Range Facility Carbon dioxide, total [Moles /volume] in Serum or PlasmaOrdered By: Daisy Mora on 06-03-2025 CO2 [Moles/Vol] Carbon dioxide, tota l [Moles/volume] in Serum or Plasma 21.0-31.0 [facility] Chloride [Moles/volume] in S ursula or PlasmaOrdered By: Daisy Mora on 09-09-2024 Chloride [Moles/Vol] Chloride [Moles/vol ume] in Serum or Plasma Low 98-107 [facility] ECG 12 lead ECGon 09-09-2024 ECG 12 lead ECG [facility] Main [place] [id number] Electrocardiograph Report Signed Patient: Esme Steven MR#: [id number] : 1960 Acct:[id number] Age/Sex: 63 / M ADM Date: 09/09/24 Loc: PO Room: Type: [facility] Attending Dr: Daisy Mora MD Ordering Provider: Daisy Mora MD Date of Service: 09/09/2407/01/1012 ECG/ECG 12 lead ECG: Pre-cardioversion rhythm assessment Copies to: Test Reason : Blood Pressure : */* mmHG Vent. Rate : 111 BPM Atrial Rate : 107 BPM P-R Int : * ms QRS Dur : 114 ms QT Int : 318 ms P-R-T Axes : * -17 129 degrees QTcB Int : 432 ms Atrial fibrillation with rapid ventricular response with premature ventricular or aberrantly conducted complexes Inferior infarct , age undetermined Abnormal ECG When compared with ECG of 11-Aug-2024 14:04, Inferior infarct is now present Confirmed by Will Koch ([id number]) on 09/09/2024 11:28:31 AM Referred By: Electronically Signed By: Will Koch Transcribed By: MUS Signed By Will Koch MD 09/09/24 1128 Normal [facility] ECG post procedureon 025 ECG post procedure [address] [address] Electrocardiograph Report Signed Patient: Esme Steven MR#: [id number] : 1960 Acct:[id number] Age/Sex: 63 / M ADM Date: 09/09/24 Loc: PO Room: Type: [facility] Attending Dr: Daisy Mora MD Ordering Provider: Daisy Mora MD Date of Service: 09/09/24/ ECG/ECG post procedure: Post CV Copies to: Test Reason : Blood Pressure : 90/63 mmHG Vent. Rate : 78 BPM Atrial Rate : 78 BPM P-R Int : 194 ms QRS Dur : 116 ms QT Int : 410 ms P-R-T Axes : 48 -10 117 degrees QTcB Int : 467 ms Sinus rhythm with premature atrial complexes Inferior infarct (cited on or before 09-Sep-2024) T wave abnormality, consider lateral ischemia Abnormal ECG When compared with ECG of 09-Sep-2024 10:01, Sinus rhythm has replaced Atrial fibrillation Inverted T waves have replaced nonspecific T wave abnormality in Lateral leads Confirmed by Ada Woodruff ([id number]) on 09/09/2024 5:08:22 PM Referred By: Electronically Signed By: Ada Woodruff Transcribed By: MUS Signed By Ada Woodruff MD 5 1708 Normal [facility] Electrolyteson 09-09-2024 Anion gap [Moles/Vol] 14.7 mmol/L Normal 6.0-15.0 [facility] Comment on above: Result Comment: PERF ORMED BY: [place] [address] PATHOLOGIST TRAIN DIRECTOR MICHELE ALMARAZ M.D. Performed By: #### L YTES #### [place] [address] [place] Chloride [Moles/Vol] 96 mmol/L Low 98-107 [facility] Comment on above: Performed By: #### L YTES #### [place] [address] [place] CO2 [Moles/Vol] 26.3 mmol/L Normal 21.0-31.0 The [facility] Comment on above: Performed By: #### L YTES #### [place] [address] [place] Potassium [Moles/Vol] 4.0 mmol/L Normal 3.5-5.1 [facility] Comment on above: Performed By: #### L YTES #### [facility] [address] Sodium [Moles/Vol] 133 mmol/L Low 136-145 The [facility] Comment on above: Performed By: #### L YTES #### [facility] [address] [place] [id number] [facility] Potassium [Moles/volume] in Serum or PlasmaOrdered By: Daisy Mora on 09-09-2024 Potassium [Moles/Vol] Potassium [Moles/v olume] in Serum or Plasma 3.5-5.1 [facility] Serum or plasma anion gap de terminationOrdered By: Daisy Mora on 09-09-2024 Anion gap [Moles/Vol] Serum or plasma an ion gap determination 6.0-15.0 [facility] Sodium [Moles/volume] in Ser um or PlasmaOrdered By: Daisy Mora on 09-09-2024 Sodium [Moles/Vol] Sodium [Moles/volume ] in Serum or Plasma Low 136-145 [facility] CNPNon 08-31-2024 CNPN Telephone (RADHA) ----- ESME STEVEN ([id number]) 1960 M Date Time Provider Department 08/31/24 HELADIO PINEDA During your visit today, we recorded the following information about you: Heladio Pineda MD 08/31/2024 1:10 PM Signed Please call patent To schedule nonfasting labs Active in 07/2024. Ok to complete at [facility]. Please schedule earlier follow up visit for PMR May offer Sat. Clinic (virtual/phone only) 09/13/24 and 10/11/24 are open. Thank you. Ileana George 09/02/2024 10:41 AM Signed Patient scheduled on 09/13/2024 Allergies As of Date: 08/31/2024 (No Known Allergies) Date Reviewed: 06/30/2024 Reviewed by: Heladio Pineda MD - Fully Assessed Reason for Visit: Orders [681] Appointment [186] Prescriptions as of 09/02/2024 - allopurinol (ZYLOPRIM) 100 mg tablet Take 2 tablets by mouth every afternoon. - ergocalciferol 50,000 unit capsule (VITAMIN D2, DRISDOL) (take by mouth with food twice a week, ONE CAPSULE ON SUNDAY AND ONE ON SUNDAY) FOR A TOTAL OF 10 WEEKS. Then once a week thereafter - methylPREDNISolone (MEDROL) 4 mg Day 1=6tabs with food, Day 2=5tabs, Day 3=4tabs, Day 4=3tabs, Day 5=2tabs, Day 6=1tab, No NSAIDs on med - ELIQUIS 5 mg tab(s) TAKE 1 [...] puffs by mouth every 6 hours - aspirin, enteric coated (ASPIRIN, ENTERIC COATED) [...] every afternoon. 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 [Z79*01/05/2023 CHENCHO positive [R76.8] 01/05/2023 Bilateral hand swelling [M79.89] 01/05/2023 Chronic pain of both knees [M25.561, M25.562, G*03/05/2023 Leg weakness, bilateral [R29.898] 06/30/2024 Encounter Status:Closed by ILEANA GEORGE on 09/02/24 Normal [facility] ECG 12 Leadon 08-22-2024 Atrial fibrillation with controlled rate with old inferior VT [facility] Work Phone: [facility] Work Phone: Alanine aminotransferase [En zymatic activity/volume] in Serum or PlasmaOrdered By: Lydia Connelly on 08-13-2024 ALT [Catalytic activity/Vol] Alanine aminotransferase [Enzymatic activity/volume] in Serum or Plasma High 7-52 [facility] Albumin [Mass/volume] in Ser um or Plasma by Bromocresol green (BCG) dye binding methoOrdered By: Lydia Connelly on 08-13-2024 Albumin BCG dye [Mass/Vol] Albumin [Mass/volume] in Serum or Plasma by Bromocresol green (BCG) dye binding metho 3.5-5.7 [facility] Alkaline phosphatase [Enzyma tic activity/volume] in Serum or PlasmaOrdered By: Lydia Connelly on 08-13-2024 ALP [Catalytic activity/Vol] Alkaline phosphatase [Enzymatic activity/volume] in Serum or Plasma 34-104 [facility] Aspartate aminotransferase [ Enzymatic activity/volume] in Serum or PlasmaOrdered By: Lydia Connelly on 08-13-2024 AST [Catalytic activity/Vol] Aspartate aminotransferase [Enzymatic activity/volume] in Serum or Plasma 13-39 [facility] Basophils Auto (Bld) [#/Vol] Ordered By: Lydia Connelly on 08-13-2024 Basophils (Bld) [#/Vol] Automated basophil count 0.0-0.2 [facility] Basophils/100 WBC Auto (Bld) Ordered By: Lydia Connelly on 08-13-2024 Basophils/100 WBC (Bld) Automated basophil % . [facility] Bilirubin.total [Mass/volume ] in Serum or PlasmaOrdered By: Lydia Connelly on 08-13-2024 Bilirubin [Mass/Vol] Bilirubin.total [Mass/volume] in Serum or Plasma High 0.3-1.0 [facility] Comment on above: Samples from patient s who have taken Naproxen have shown spurious elevation in Total Bilirubin levels. A metabolite of Naproxen, O-desmethylnaproxen, has been shown to interfere with the Jayro-Henrik method for measuring Total Bilirubin. Calcium [Mass/volume] in Ser um or PlasmaOrdered By: Lydia Connelly on 08-13-2024 Calcium [Mass/Vol] Calcium [Mass/volume ] in Serum or Plasma 8.6-10.3 [facility] Carbon dioxide, total [Moles /volume] in Serum or PlasmaOrdered By: Lydia Connelly on 08-13-2024 CO2 [Moles/Vol] Carbon dioxide, tota l [Moles/volume] in Serum or Plasma 21.0-31.0 [facility] Chloride [Moles/volume] in S ursula or PlasmaOrdered By: Lydia Connelly on 08-13-2024 Chloride [Moles/Vol] Chloride [Moles/vol ume] in Serum or Plasma 98-107 [facility] Complete Blood Count Auto Di ffon 08-13-2024 Basophils (Bld) [#/Vol] 0.1 10*3/uL Normal 0.0-0.2 [facility] Comment on above: Result Comment: PERF ORMED BY: [place] [address] PATHOLOGIST TRAIN DIRECTOR OSCAR HAY M.D. Performed By: #### M G, CBC, CMP #### [address] Basophils/100 WBC (Bld) 0.8 % Normal . [facility] Comment on above: Performed By: #### M G, CBC, CMP #### [address] Eosinophils (Bld) [#/Vol] 0.1 10*3/uL Normal 0.0-0.45 [facility] Comment on above: Performed By: #### M G, CBC, CMP #### [address] Eosinophils/100 WBC (Bld) 1.1 % Normal . [facility] Comment on above: Performed By: #### M G, CBC, CMP #### [address] Erythrocyte distribution width (RBC) [Ratio] 13.8 % Normal 12.0-14.8 [facility] Comment on above: Performed By: #### M G, CBC, CMP #### [address] Hematocrit (Bld) [Volume fraction] 50.5 % High 38.8-50.0 [facility] Comment on above: Performed By: #### M G, CBC, CMP #### [address] Hemoglobin (Bld) [Mass/Vol] 17.1 g/dL High 13.0-17.0 [facility] Comment on above: Performed By: #### M G, CBC, CMP #### [address] Lymphocytes (Bld) [#/Vol] 1.4 10*3/uL Normal 1.00-4.8 [facility] Comment on above: Performed By: #### M G, CBC, CMP #### [address] Lymphocytes/100 WBC (Bld) 15.1 % Normal . [facility] Comment on above: Performed By: #### M G, CBC, CMP #### [address] MCH (RBC) [Entitic mass] 35.8 pg High 27.5-35.2 [facility] Comment on above: Performed By: #### M G, CBC, CMP #### [address] MCV (RBC) [Entitic vol] 105.5 fL High 83.5-101 [facility] Comment on above: Performed By: #### M G, CBC, CMP #### [address] Mean Corpuscular HGB Conc 33.9 g/dL Normal 32.5-35.6 [facility] Comment on above: Performed By: #### M G, CBC, CMP #### [address] Monocytes (Bld) [#/Vol] 0.7 10*3/uL Normal 0.0-0.8 [facility] Comment on above: Performed By: #### M G, CBC, CMP #### [address] Monocytes/100 WBC (Bld) 7.6 % Normal . [facility] Comment on above: Performed By: #### M G, CBC, CMP #### [place] [id number] [place] Neutrophils (Bld) [#/Vol] 7.2 10*3/uL Normal 1.8-7.7 [facility] Comment on above: Performed By: #### M G, CBC, CMP #### [address] Neutrophils/100 WBC (Bld) 75.4 % Normal . [facility] Comment on above: Performed By: #### M G, CBC, CMP #### [address] NRBC% 0.1 /100{WBC} Normal 0-0.5 [facility] Comment on above: Performed By: #### M G, CBC, CMP #### [address] Platelet mean volume (Bld) [Entitic vol] 9.1 fL Normal 6.6-10.1 [facility] Comment on above: Performed By: #### M G, CBC, CMP #### [address] Platelets (Bld) [#/Vol] 160 10*3/uL Normal 150-450 [facility] Comment on above: Performed By: #### M G, CBC, CMP #### [address] RBC (Bld) [#/Vol] 4.79 10*6/uL Normal 3.90-5.60 [facility] Comment on above: Performed By: #### M G, CBC, CMP #### [address] WBC (Bld) [#/Vol] 9.6 10*3/uL Normal 4.1-10.5 The [facility] Comment on above: Performed By: #### M G, CBC, CMP #### [address] Comprehensive Metabolic Pane jose 08-13-2024 Albumin [Mass/Vol] 3.5 g/dL Normal 3.5-5.7 The [facility] Comment on above: Performed By: #### M G, CBC, CMP #### [facility] [address] [place] [address] [place] Albumin/Globulin [Mass ratio] 1.3 {ratio} Normal [facility] Comment on above: Performed By: #### M G, CBC, CMP #### [facility] [address] [place] [id number] [facility] ALP [Catalytic activity/Vol] 73 U/L Normal 34-104 [facility] Comment on above: Performed By: #### M G, CBC, CMP #### [facility] [address] [place] [id number] [facility] ALT [Catalytic activity/Vol] 86 U/L High 7-52 [facility] Comment on above: Performed By: #### M G, CBC, CMP #### [address] Anion gap [Moles/Vol] 11.5 mmol/L Normal 6.0-15.0 [facility] Comment on above: Performed By: #### M G, CBC, CMP #### [facility] [address] [place] [id number] [place] AST [Catalytic activity/Vol] 31 U/L Normal 13-39 [facility] Comment on above: Performed By: #### M G, CBC, CMP #### [place] [id number] [place] Bilirubin [Mass/Vol] 1.4 mg/dL High 0.3-1.0 [facility] Comment on above: Result Comment: Samp les from patients who have taken Naproxen have shown spurious elevation in Total Bilirubin levels. A metabolite of Naproxen, O-desmethylnaproxen, has been shown to interfere with the Jenhugo-Henrik method for measuring Total Bilirubin. Performed By: #### M G, CBC, CMP #### [facility] [address] [place] [address] [place] Calcium [Mass/Vol] 8.9 mg/dL Normal 8.6-10.3 The [facility] Comment on above: Performed By: #### M G, CBC, CMP #### [facility] [address] Chloride [Moles/Vol] 102 mmol/L Normal 98-107 [facility] Comment on above: Performed By: #### M G, CBC, CMP #### [facility] [address] CO2 [Moles/Vol] 25.4 mmol/L Normal 21.0-31.0 The [facility] Comment on above: Performed By: #### M G, CBC, CMP #### [facility] [address] Creatinine [Mass/Vol] 0.76 mg/dL Normal 0.70-1.30 [facility] Comment on above: Performed By: #### M G, CBC, CMP #### [address] Creatinine Clr Calc Pharmacy 119.44 Normal [facility] Comment on above: Performed By: #### M G, CBC, CMP #### [place] [address] [place] GFR/1.73 sq M.predicted MDRD (S/P/Bld) [Vol rate/Area] mL/min/{1.73_m2} Normal [facility] Comment on above: Performed By: #### M G, CBC, CMP #### [place] [address] [place] Globulin (S) [Mass/Vol] 2.6 g/dL Normal [facility] Comment on above: Performed By: #### M G, CBC, CMP #### [facility] [address] [place] [address] [place] Glucose [Mass/Vol] 148 mg/dL High 70-100 The [facility] Comment on above: Result Comment: [place] Glucose Reference Range is dependent on time and content of last meal. Glucose of more than 200 mg/dL in a nonstressed, ambulatory subject supports the diagnosis of Diabetes Mellitus. ADA recommended reference range Performed By: #### M G, CBC, CMP #### [place] [address] [place] Potassium [Moles/Vol] 3.9 mmol/L Normal 3.5-5.1 [facility] Comment on above: Result Comment: Hemo lysis is present at a level that could interfere with the result. Contact lab if redraw is required Performed By: #### M G, CBC, CMP #### [facility] [address] Protein [Mass/Vol] 6.1 g/dL Low 6.4-8.9 The [facility] Comment on above: Performed By: #### M G, CBC, CMP #### [facility] [address] Sodium [Moles/Vol] 135 mmol/L Low 136-145 The [facility] Comment on above: Performed By: #### M G, CBC, CMP #### [facility] [address] [place] [address] [place] Urea nitrogen [Mass/Vol] 19 mg/dL Normal 7-25 [facility] Comment on above: Performed By: #### M G, CBC, CMP #### [facility] [address] [place] [id number] [place] Creatinine [Mass/volume] in Serum or PlasmaOrdered By: Lydia Connelly on 08-13-2024 Creatinine [Mass/Vol] Creatinine [Mass/v olume] in Serum or Plasma 0.70-1.30 [facility] Eosinophils Auto (Bld) [#/Vo l]Ordered By: Lydia Connelly on 08-13-2024 Eosinophils (Bld) [#/Vol] Automated eosinophil count 0.0-0.45 [facility] Eosinophils/100 WBC Auto (Bl d)Ordered By: Lydia Connelly on 08-13-2024 Eosinophils/100 WBC (Bld) Automated eosinophil % . [facility] Erythrocyte distribution wid th Auto (RBC) [Ratio]Ordered By: Lydia Connelly on 08-13-2024 Erythrocyte distribution width (RBC) [Ratio] Erythrocyte distribution width [Ratio] by Automated count 12.0-14.8 [facility] Globulin Calc (S) [Mass/Vol] Ordered By: Lydia Connelly on 08-13-2024 Globulin (S) [Mass/Vol] Serum globulin measurement by calculation (mass/volume) [facility] Glucose [Mass/volume] in Ser um or PlasmaOrdered By: Lydia Connelly on 08-13-2024 Glucose [Mass/Vol] Glucose [Mass/volume ] in Serum or Plasma High 70-100 [facility] Comment on above: ADA recommended refe rence rangeRandom Glucose Reference Range is dependent on time and content of last meal. Glucose of more than 200 mg/dL in a nonstressed, ambulatory subject supports the diagnosis of Diabetes Mellitus. Hematocrit Auto (Bld) [Volum e fraction]Ordered By: Lydia Connelly on 08-13-2024 Hematocrit (Bld) [Volume fraction] Hematocrit [Volume Fraction] of Blood by Automated count High 38.8-50.0 [facility] Hemoglobin [Mass/volume] in BloodOrdered By: Lydia Connelly 08-13-2024 Hemoglobin (Bld) [Mass/Vol] Hemoglobin [Mass/volume] in Blood High 13.0-17.0 [facility] Leukocytes [#/volume] correc collins for nucleated erythrocytes in Blood by Automated counOrdered By: Lydia Connelly on 08-13-2024 WBC corrected for nucl RBC Auto (Bld) [#/Vol] Leukocytes [#/volume] corrected for nucleated erythrocytes in Blood by Automated coun 4.1-10.5 [facility] Lymphocytes Auto (Bld) [#/Vo l]Ordered By: Lydia Connelly 08-13-2024 Lymphocytes (Bld) [#/Vol] Lymphocytes [#/volume] in Blood by Automated count 1.00-4.8 [facility] Lymphocytes/100 WBC Auto (Bl d)Ordered By: Lydia Connelly on 08-13-2024 Lymphocytes/100 WBC (Bld) Lymphocytes/100 leukocytes in Blood by Automated count . [facility] MCH Auto (RBC) [Entitic mass ]Ordered By: Lydia Connelly on 08-13-2024 MCH (RBC) [Entitic mass] MCH [Entitic mass] by Automated count High 27.5-35.2 [facility] MCHC Auto (RBC) [Mass/Vol]Or dered By: Lydia Connelly on 08-13-2024 MCHC (RBC) [Mass/Vol] MCHC [Mass/volume] by Automated count 32.5-35.6 [facility] MCV Auto (RBC) [Entitic vol] Ordered By: Lydia Connelly on 08-13-2024 MCV (RBC) [Entitic vol] MCV [Entitic volume] by Automated count High 83.5-101 [facility] Magnesiumon 08-13-2024 Magnesium [Mass/Vol] 1.6 mg/dL Low 1.9-2.7 [facility] Comment on above: Result Comment: PERF ORMED BY: [place] [address] PATHOLOGIST TRAIN DIRECTOR OSCAR HAY M.D. Performed By: #### M G, CBC, CMP #### [facility] [address] Magnesium [Mass/volume] in S ursula or PlasmaOrdered By: Lydia Connelly on 08-13-2024 Magnesium [Mass/Vol] Magnesium [Mass/vol ume] in Serum or Plasma Low 1.9-2.7 [facility] Monocytes Auto (Bld) [#/Vol] Ordered By: Lydia Connelly on 08-13-2024 Monocytes (Bld) [#/Vol] Automated blood monocyte count 0.0-0.8 [facility] Monocytes/100 WBC Auto (Bld) Ordered By: Lydia Connelly on 08-13-2024 Monocytes/100 WBC (Bld) Automated monocyte % . [facility] NM kacie perf SPECT rest stron 08-13-2024 NM kacie perf SPECT rest str [facility] [address] [place] [address] Nuclear Medicine Report Signed Patient: Esme Steven MR#: [id number] : 1960 Acct:[id number] Age/Sex: 63 / M ADM Date: 08/11/24 Loc: Room: [address] [place] [address] Type: ADM INOo Attending Dr: Lydia Connelly MD Copies to: Lala Arce MD, [facility] MD Lydia Guajardo MD Ordering Provider: Lala Arce MD, [facility] Date of Service: 08/12/24 NM/NM kacie perf SPECT rest str: Chest pain NUCLEAR MYOCARDIAL PERFUSION DATE OF PROCEDURE: 08/13/2024 PROCEDURE: The patient received a stress dose of Lexiscan and was then injected with 29.1 millicuries of Technetium 99M Sestamibi. For rest images the patient was injected with 27 millicuries of Technetium 99M Sestamibi. FINDINGS: The raw cine images were reviewed. The post stress and rest perfusion images were reviewed as well as the computer quantification.? There is a large, severe inferior and inferolateral fixed defect with mild reversibility. On the gated portion of the study, there was uniform thickening with an overall ejection fraction calculated at 33%.? TID score was within normal limits (1.1). CONCLUSION: 1. Abnormal MPI. There is a large, severe inferior and inferolateral fixed defect with mild reversibility consistent with ashia-infarct ischemia. 2. Left ventricular function was reduced at 33% Impression dictated by: Ada Woodruff M.D. 08/13/2024 1:02 PM Dictation Location: [facility] Transcribed By: GWEN 08/13/24 1302 Dictated By: Ada Woodruff MD 08/13/24 1258 Signed By: 08/13/24 1302 Normal [facility] Neutrophils Auto (Bld) [#/Vo l]Ordered By: Lydia Connelly on 08-13-2024 Neutrophils (Bld) [#/Vol] Neutrophils [#/volume] in Blood by Automated count 1.8-7.7 [facility] Neutrophils/100 WBC Auto (Bl d)Ordered By: Lydia Connelly on 08-13-2024 Neutrophils/100 WBC (Bld) Automated neutrophil % . [facility] No Panel InformationOrdered By: Lydia Connelly on 08-13-2024 Estimated GFR (CKD-EPI) > 60.0 mL/Min [facility] Creatinine Clearance (Chem 119.44 [facility] Nucleated erythrocytes [Pres ence] in Blood by Automated countOrdered By: Lydia Connelly on 08-13-2024 Nucleated RBC Auto Ql (Bld) Nucleated erythrocytes [Presence] in Blood by Automated count 0-0.5 [facility] Platelet mean volume Auto (B ld) [Entitic vol]Ordered By: Lydia Connelly on 08-13-2024 Platelet mean volume (Bld) [Entitic vol] Platelet mean volume [Entitic volume] in Blood by Automated count 6.6-10.1 [facility] Platelets Auto (Bld) [#/Vol] Ordered By: Lydia Connelly on 08-13-2024 Platelets (Bld) [#/Vol] Platelets [#/volume] in Blood by Automated count 150-450 [facility] Potassium [Moles/volume] in Serum or PlasmaOrdered By: Lydia Connelly on 08-13-2024 Potassium [Moles/Vol] Potassium [Moles/v olume] in Serum or Plasma 3.5-5.1 [facility] Comment on above: Hemolysis is present at a level that could interfere with the result.Contact lab if redraw is required Protein [Mass/volume] in Ser um or PlasmaOrdered By: Lydia Connelly on 08-13-2024 Protein [Mass/Vol] Protein [Mass/volume ] in Serum or Plasma Low 6.4-8.9 [facility] RBC Auto (Bld) [#/Vol]Ordere d By: Lydia Connelly on 08-13-2024 RBC (Bld) [#/Vol] Erythrocytes [#/volu me] in Blood by Automated count 3.90-5.60 [facility] Serum or plasma albumin/glob ulin mass ratioOrdered By: Lydia Connelly on 08-13-2024 Albumin/Globulin [Mass ratio] Serum or plasma albumin/globulin mass ratio [facility] Serum or plasma anion gap de terminationOrdered By: Lydia Connelly on 08-13-2024 Anion gap [Moles/Vol] Serum or plasma an ion gap determination 6.0-15.0 [facility] Sodium [Moles/volume] in Ser um or PlasmaOrdered By: Lydia Connelly on 08-13-2024 Sodium [Moles/Vol] Sodium [Moles/volume ] in Serum or Plasma Low 136-145 [facility] Urea nitrogen [Mass/volume] in Serum or PlasmaOrdered By: Lydia Connelly on 08-13-2024 Urea nitrogen [Mass/Vol] Urea nitrogen [Mass/volume] in Serum or Plasma 10-31 [facility] WBC Auto (Bld) [#/Vol]Ordere d By: Lydia Connelly on 08-13-2024 WBC (Bld) [#/Vol] Leukocytes [#/volume ] in Blood by Automated count 4.1-10.5 [facility] A1C with Estimated Average G luon 08-12-2024 Glucose [Mass/Vol] 174 mg/dL Normal [facility] Comment on above: Result Comment: PERF ORMED BY: [place] [address] PATHOLOGIST TRAIN DIRECTOR OSCAR HAY M.D. Performed By: #### T SH3 #### [facility] [address] [place] [address] HbA1c (Bld) [Mass fraction] 7.7 % High 4.3-5.6 [facility] Comment on above: Result Comment: Incr eased risk for diabetes: 5.7 - 6.4 diabetes: >6.4 glycemic control for adults with diabetes: <7.0 Performed By: #### T SH3 #### [facility] [address] [place] [address] Blood estimated average gluc ose determination by estimation from glycated hemoglobinOrdered By: Lydia Connelly on 08-12-2024 Average glucose Estimated from glycated hemoglobin (Bld) [Mass/Vol] Glucose mean value [Mass/volume] in Blood Estimated from glycated hemoglobin [facility] Cholesterol [Mass/volume] in Serum or PlasmaOrdered By: Lydia Connelly on 08-12-2024 Cholesterol [Mass/Vol] Cholesterol [Mass /volume] in Serum or Plasma 140-200 [facility] Comment on above: Chol less than 200 m g/dl low riskChol 201-239 mg/dl borderline riskChol 240 mg/dl and greater high risk Cholesterol in HDL [Mass/vol ume] in Serum or PlasmaOrdered By: Lydia Connelly on 08-12-2024 Cholesterol in HDL [Mass/Vol] Serum or plasma high density lipoprotein (HDL) cholesterol measurement [facility] Comment on above: HDL CHOL ATP-III CLA SSIFICATION Cardiovascular RiskHDL > or equal to 60 mg/dL LOWHDL < 40 mg/dL HIGH Cholesterol in LDL Calc [Mas s/Vol]Ordered By: Lydia Connelly on 08-12-2024 Cholesterol in LDL [Mass/Vol] Cholesterol in LDL [Mass/volume] in Serum or Plasma by calculation 0-100 [facility] Comment on above: LDL ATP III CLASSIFI CATIONLDL less than 100 mg/dL OptimalLDL 100-129 mg/dL Near or above optimalLDL 130-159 mg/dL Borderline highLDL 160-189 mg/dL HighLDL greater than 189 mg/dL Very high Cholesterol in VLDL Calc [Ma ss/Vol]Ordered By: Lydia Connelly on 08-12-2024 Cholesterol in VLDL [Mass/Vol] Cholesterol in VLDL [Mass/volume] in Serum or Plasma by calculation [facility] Complete Blood Count Auto Di ffon 08-12-2024 Basophils (Bld) [#/Vol] 0.1 10*3/uL Normal 0.0-0.2 [facility] Comment on above: Result Comment: PERF ORMED BY: [place] [address] PATHOLOGIST TRAIN DIRECTOR OSCAR HAY M.D. Performed By: #### M G, CMP, A1C WTH eA, CBC, LIPID #### [facility] [address] [place] [address] [place] Basophils/100 WBC (Bld) 0.8 % Normal . [facility] Comment on above: Performed By: #### M G, CMP, A1C WTH eA, CBC, LIPID #### [facility] [address] [place] [address] [place] Eosinophils (Bld) [#/Vol] 0.1 10*3/uL Normal 0.0-0.45 [facility] Comment on above: Performed By: #### M G, CMP, A1C WTH eA, CBC, LIPID #### [facility] [address] [place] [address] [place] Eosinophils/100 WBC (Bld) 0.7 % Normal . [facility] Comment on above: Performed By: #### M G, CMP, A1C WTH eA, CBC, LIPID #### [address] Erythrocyte distribution width (RBC) [Ratio] 13.7 % Normal 12.0-14.8 [facility] Comment on above: Performed By: #### M G, CMP, A1C WTH eA, CBC, LIPID #### [address] Hematocrit (Bld) [Volume fraction] 50.3 % High 38.8-50.0 [facility] Comment on above: Performed By: #### M G, CMP, A1C WTH eA, CBC, LIPID #### [address] Hemoglobin (Bld) [Mass/Vol] 17.3 g/dL High 13.0-17.0 [facility] Comment on above: Performed By: #### M G, CMP, A1C WTH eA, CBC, LIPID #### [address] Lymphocytes (Bld) [#/Vol] 1.5 10*3/uL Normal 1.00-4.8 [facility] Comment on above: Performed By: #### M G, CMP, A1C WTH eA, CBC, LIPID #### [address] Lymphocytes/100 WBC (Bld) 14.1 % Normal . [facility] Comment on above: Performed By: #### M G, CMP, A1C WTH eA, CBC, LIPID #### [address] MCH (RBC) [Entitic mass] 35.7 pg High 27.5-35.2 [facility] Comment on above: Performed By: #### M G, CMP, A1C WTH eA, CBC, LIPID #### [address] MCV (RBC) [Entitic vol] 103.6 fL High 83.5-101 [facility] Comment on above: Performed By: #### M G, CMP, A1C WTH eA, CBC, LIPID #### [facility] [address] Mean Corpuscular HGB Conc 34.5 g/dL Normal 32.5-35.6 [facility] Comment on above: Performed By: #### M G, CMP, A1C WTH eA, CBC, LIPID #### [facility] [address] [place] [address] [place] Monocytes (Bld) [#/Vol] 0.5 10*3/uL Normal 0.0-0.8 [facility] Comment on above: Performed By: #### M G, CMP, A1C WTH eA, CBC, LIPID #### [address] Monocytes/100 WBC (Bld) 5.0 % Normal . [facility] Comment on above: Performed By: #### M G, CMP, A1C WTH eA, CBC, LIPID #### [address] Neutrophils (Bld) [#/Vol] 8.2 10*3/uL High 1.8-7.7 [facility] Comment on above: Performed By: #### M G, CMP, A1C WTH eA, CBC, LIPID #### [facility] [address] [place] [address] [place] Neutrophils/100 WBC (Bld) 79.4 % Normal . [facility] Comment on above: Performed By: #### M G, CMP, A1C WTH eA, CBC, LIPID #### [facility] [address] [place] [address] [place] NRBC% 0.1 /100{WBC} Normal 0-0.5 [facility] Comment on above: Performed By: #### M G, CMP, A1C WTH eA, CBC, LIPID #### [address] Platelet mean volume (Bld) [Entitic vol] 9.1 fL Normal 6.6-10.1 [facility] Comment on above: Performed By: #### M G, CMP, A1C WTH eA, CBC, LIPID #### [facility] [address] Platelets (Bld) [#/Vol] 169 10*3/uL Normal 150-450 [facility] Comment on above: Performed By: #### M G, CMP, A1C WTH eA, CBC, LIPID #### [address] RBC (Bld) [#/Vol] 4.86 10*6/uL Normal 3.90-5.60 [facility] Comment on above: Performed By: #### M G, CMP, A1C WTH eA, CBC, LIPID #### [address] WBC (Bld) [#/Vol] 10.3 10*3/uL Normal 4.1-10.5 [facility] Comment on above: Performed By: #### M G, CMP, A1C WTH eA, CBC, LIPID #### [address] Comprehensive Metabolic Pane jose 08-12-2024 Albumin [Mass/Vol] 3.9 g/dL Normal 3.5-5.7 [facility] Comment on above: Performed By: #### M G, CMP, A1C WTH eA, CBC, LIPID #### [address] Albumin/Globulin [Mass ratio] 1.3 {ratio} Normal [facility] Comment on above: Performed By: #### M G, CMP, A1C WTH eA, CBC, LIPID #### [address] ALP [Catalytic activity/Vol] 84 U/L Normal 34-104 [facility] Comment on above: Performed By: #### M G, CMP, A1C WTH eA, CBC, LIPID #### [address] ALT [Catalytic activity/Vol] 112 U/L High 7-52 [facility] Comment on above: Performed By: #### M G, CMP, A1C WTH eA, CBC, LIPID #### [facility] [address] Anion gap [Moles/Vol] 12.1 mmol/L Normal 6.0-15.0 Th e [facility] Comment on above: Performed By: #### M G, CMP, A1C WTH eA, CBC, LIPID #### [facility] [address] [place] [id number] [place] AST [Catalytic activity/Vol] 22 U/L Normal 13-39 [facility] Comment on above: Performed By: #### M G, CMP, A1C WTH eA, CBC, LIPID #### [facility] [address] [place] [id number] [place] Bilirubin [Mass/Vol] 1.6 mg/dL High 0.3-1.0 [facility] Comment on above: Result Comment: Samp les from patients who have taken Naproxen have shown spurious elevation in Total Bilirubin levels. A metabolite of Naproxen, O-desmethylnaproxen, has been shown to interfere with the Jendrassik-Grof method for measuring Total Bilirubin. Performed By: #### M G, CMP, A1C WTH eA, CBC, LIPID #### [facility] [address] [place] [id number] [place] Calcium [Mass/Vol] 9.6 mg/dL Normal 8.6-10.3 The [facility] Comment on above: Performed By: #### M G, CMP, A1C WTH eA, CBC, LIPID #### [facility] [address] [place] [id number] [place] Chloride [Moles/Vol] 99 mmol/L Normal 98-107 [facility] Comment on above: Performed By: #### M G, CMP, A1C WTH eA, CBC, LIPID #### [facility] [address] [place] [id number] [place] CO2 [Moles/Vol] 27.7 mmol/L Normal 21.0-31.0 The [facility] Comment on above: Performed By: #### M G, CMP, A1C WTH eA, CBC, LIPID #### [facility] [address] Creatinine [Mass/Vol] 0.80 mg/dL Normal 0.70-1.30 [facility] Comment on above: Performed By: #### M G, CMP, A1C WTH eA, CBC, LIPID #### [facility] [address] [place] [address] [place] Creatinine Clr Calc Pharmacy 97.08 Normal [facility] Comment on above: Performed By: #### M G, CMP, A1C WTH eA, CBC, LIPID #### [facility] [address] [place] [address] [place] GFR/1.73 sq M.predicted MDRD (S/P/Bld) [Vol rate/Area] mL/min/{1.73_m2} Normal [facility] Comment on above: Performed By: #### M G, CMP, A1C WTH eA, CBC, LIPID #### [address] Globulin (S) [Mass/Vol] 2.9 g/dL Normal [facility] Comment on above: Performed By: #### M G, CMP, A1C WTH eA, CBC, LIPID #### [address] Glucose [Mass/Vol] 153 mg/dL High 70-100 [facility] Comment on above: Result Comment: [facility] Glucose Reference Range is dependent on time and content of last meal. Glucose of more than 200 mg/dL in a nonstressed, ambulatory subject supports the diagnosis of Diabetes Mellitus. ADA recommended reference range Performed By: #### M G, CMP, A1C WTH eA, CBC, LIPID #### [facility] [address] Potassium [Moles/Vol] 3.8 mmol/L Normal 3.5-5.1 [facility] Comment on above: Performed By: #### M G, CMP, A1C WTH eA, CBC, LIPID #### [place] [address] [place] Protein [Mass/Vol] 6.8 g/dL Normal 6.4-8.9 The [facility] Comment on above: Performed By: #### M G, CMP, A1C WTH eA, CBC, LIPID #### [facility] [address] [place] [address] [place] Sodium [Moles/Vol] 135 mmol/L Low 136-145 The [facility] Comment on above: Performed By: #### M G, CMP, A1C WTH eA, CBC, LIPID #### [facility] [address] [place] [id number] [place] Urea nitrogen [Mass/Vol] 13 mg/dL Normal 7-25 [facility] Comment on above: Performed By: #### M G, CMP, A1C WTH eA, CBC, LIPID #### [facility] [address] [place] [id number] [place] Hemoglobin A1c/Hemoglobin.to nahid in BloodOrdered By: Lydia Connelly on 08-12-2024 HbA1c (Bld) [Mass fraction] Hemoglobin A1c percentage High 4.3-5.6 [facility] Comment on above: Increased risk for d iabetes: 5.7 - 6.4diabetes: >6.4glycemic control for adults with diabetes: <7.0 Lipid Panelon 08-12-2024 Cholesterol [Mass/Vol] 167 mg/dL Normal 140-200 Th e [facility] Comment on above: Result Comment: Chol less than 200 mg/dl low risk Chol 201-239 mg/dl borderline risk Chol 240 mg/dl and greater high risk Performed By: #### T SH3 #### [facility] [address] [place] [id number] [place] Cholesterol in HDL [Mass/Vol] 45 mg/dL Normal 23-92 [facility] Comment on above: Result Comment: HDL CHOL ATP-III CLASSIFICATION Cardiovascular Risk HDL > or equal to 60 mg/dL LOW HDL < 40 mg/dL HIGH Performed By: #### T SH3 #### [facility] [address] [place] [address] [facility] Cholesterol.total/Chol esterol in HDL [Mass ratio] 3.7 {ratio} Normal <5.0 [facility] Comment on above: Result Comment: PERF ORMED BY: [place] [address] PATHOLOGIST TRAIN DIRECTOR OSCAR HAY M.D. Performed By: #### T SH3 #### [address] LDL Cholesterol,Calculated 86 mg/dL Normal 0-100 The [facility] Comment on above: Result Comment: LDL ATP III CLASSIFICATION LDL less than 100 mg/dL Optimal LDL 100-129 mg/dL Near or above optimal LDL 130-159 mg/dL Borderline high LDL 160-189 mg/dL High LDL greater than 189 mg/dL Very high Performed By: #### T SH3 #### [address] Triglyceride w/Reflex 179 mg/dL High 0-149 [facility] Comment on above: Result Comment: TRIG ATP III CLASSIFICATION TRIG less than 150 mg/dL Normal TRIG 150-199 mg/dL Borderline high TRIG 200-500 mg/dL High TRIG greater than 500 mg/dL Very high Standard traceable to the Center for Disease Conrtrol and Prevention (CDC) test method. Performed By: #### T SH3 #### [address] VLDL CHOLESTEROL 35 mg/dL Normal The [facility] Comment on above: Performed By: #### T SH3 #### [address] Magnesiumon 08-12-2024 Magnesium [Mass/Vol] 1.5 mg/dL Low 1.9-2.7 [facility] Comment on above: Performed By: #### T SH3 #### [address] Serum or plasma total choles terol/high density lipoprotein (HDL) cholesterol mass ratOrdered By: Lydia Connelly on 08-12-2024 Cholesterol.total/Chol esterol in HDL [Mass ratio] Serum or plasma total cholesterol/high density lipoprotein (HDL) cholesterol mass rat <5.0 [facility] Triglyceride [Mass/volume] i n Serum or PlasmaOrdered By: Lydia Connelly on 08-12-2024 Triglyceride [Mass/Vol] Triglyceride [Mass/volume] in Serum or Plasma High 0-149 [facility] Comment on above: TRIG ATP III CLASSIF ICATIONTRIG less than 150 mg/dL NormalTRIG 150-199 mg/dL Borderline highTRIG 200-500 mg/dL High TRIG greater than 500 mg/dL Very highStandard traceable to the Center for Disease Conrtrol and Prevention (CDC) test method. Troponin I High Sensitivityo n 08-12-2024 Troponin I High Sensitivity 17 Normal 0-20 [facility] Comment on above: Result Comment: The Troponin units of report have been changed to meet the Chest Pain Accreditation requirement, element EC5.M1l2. Troponin units are changed from pg/ml to ng/L. Also, the decimal is removed and results are in whole numbers. PERFORMED BY: [place] [address] PATHOLOGIST TRAIN DIRECTOR OSCAR HAY M.D. Performed By: #### B MP, CBC #### [address] Troponin I.cardiac [Mass/vol ume] in Serum or Plasma by Detection limit <= 0.01 ng/Ordered By: yLdia Connelly on 08-12-2024 Troponin I.cardiac DL <= 0.01 ng/mL [Mass/Vol] Troponin I.cardiac [Mass/volume] in Serum or Plasma by Detection limit <= 0.01 ng/ 0-20 [facility] Comment on above: The Troponin units o f report have been changed to meet the Chest Pain Accreditation requirement, element EC5.M1l2. Troponin units are changed from pg/ml to ng/L. Also, the decimal is removed and results are in whole numbers. US venous duplex LE BIon US venous duplex LE BI [facility] [facility] [address] [place] [address] Ultrasound Report Signed Patient: Esme Steven MR#: [id number] : 1960 Acct:[id number] Age/Sex: 63 / M ADM Date: 08/11/24 Loc: Room: [address] [place] [address] Type: ADM INOo Attending Dr: Lydia Connelly MD Ordering Provider: Lydia Connelly MD Date of Service: 08/11/24 US/US venous duplex LE BI: bilateral leg swelling Copies to: Lydia Connelly MD BILATERAL LOWER EXTREMITY VENOUS DUPLEX INDICATION: Swollen legs PROCEDURE: Color-flow duplex scanning is used to interrogate the deep venous system of the right and left lower extremities. The common femoral vein, femoral vein and popliteal vein show good compressibility with normal proximal and distal augmentation. The posterior tibial and peroneal veins are compressible. US/US venous duplex LE BI IMPRESSION: NO EVIDENCE FOR DEEP VEIN THROMBOSIS OR PROXIMAL SUPERFICIAL THROMBOPHLEBITIS IN THE RIGHT OR LEFT LOWER EXTREMITY. Impression dictated by: Matt Hannah M.D. 08/12/2024 3:12 PM Dictation Location: [place] [address] Tech: Serena Carol Transcribed By: GWEN 08/12/24 151 Dictated By: Matt Hannah MD 08/12/24 151 Signed By: 08/12/24 151 Normal [facility] B-Type Natriuretic Peptideon 08-11-2024 Natriuretic peptide B (Bld) [Mass/Vol] 514.0 pg/mL High 5-100 [facility] Comment on above: Result Comment: PERF ORMED BY: [place] [address] PATHOLOGIST TRAIN DIRECTOR OSCAR HAY M.D. Performed By: #### B MP, CBC #### [facility] [address] [place] [address] Basic Metabolic Panelon 05-0 Anion gap [Moles/Vol] 11.8 mmol/L Normal 6.0-15.0 Th e [facility] Comment on above: Performed By: #### H S TROP #### [address] Calcium [Mass/Vol] 9.1 mg/dL Normal 8.6-10.3 The [facility]placed by [facility] Comment on above: Performed By: #### H S TROP #### [address] Chloride [Moles/Vol] 100 mmol/L Normal 98-107 The [facility] Comment on above: Performed By: #### H S TROP #### [address] CO2 [Moles/Vol] 26.2 mmol/L Normal 21.0-31.0 The [facility] Comment on above: Performed By: #### H S TROP #### [address] Creatinine [Mass/Vol] 0.74 mg/dL Normal 0.70-1.30 The [facility] Comment on above: Performed By: #### H S TROP #### [address] Creatinine Clr Calc Pharmacy 124.04 Normal [facility] Comment on above: Result Comment: PERF ORMED BY: [place] [address] PATHOLOGIST TRAIN DIRECTOR OSCAR HAY M.D. Performed By: #### H S TROP #### [address] GFR/1.73 sq M.predicted MDRD (S/P/Bld) [Vol rate/Area] mL/min/{1.73_m2} Normal The [facility] Comment on above: Performed By: #### H S TROP #### [address] Glucose [Mass/Vol] 164 mg/dL High 70-100 The [facility] Comment on above: Result Comment: [place] Glucose Reference Range is dependent on time and content of last meal. Glucose of more than 200 mg/dL in a nonstressed, ambulatory subject supports the diagnosis of Diabetes Mellitus. ADA recommended reference range Performed By: #### H S TROP #### [address] Potassium [Moles/Vol] 4.0 mmol/L Normal 3.5-5.1 The [facility] Comment on above: Result Comment: Hemo lysis is present at a level that could interfere with the result. Contact lab if redraw is required Performed By: #### H S TROP #### [facility] [address] Sodium [Moles/Vol] 134 mmol/L Low 136-145 The [facility] Comment on above: Performed By: #### H S TROP #### [facility] [address] Urea nitrogen [Mass/Vol] 12 mg/dL Normal 7-25 The [facility] Comment on above: Performed By: #### H S TROP #### [facility] [address] Basophils Auto (Bld) [#/Vol] Ordered By: Winnie Grande on 08-11-2024 Basophils (Bld) [#/Vol] Automated basophil count 0.0-0.2 [facility] Basophils/100 WBC Auto (Bld) Ordered By: Winnie Grande on 08-11-2024 Basophils/100 WBC (Bld) Automated basophil % . [facility] Calcium [Mass/volume] in Ser um or PlasmaOrdered By: Winnie Grande on 08-11-2024 Calcium [Mass/Vol] Calcium [Mass/volume ] in Serum or Plasma 8.6-10.3 [facility] Carbon dioxide, total [Moles /volume] in Serum or PlasmaOrdered By: Winnie Grande on 08-11-2024 CO2 [Moles/Vol] Carbon dioxide, tota l [Moles/volume] in Serum or Plasma 21.0-31.0 [facility] Chloride [Moles/volume] in S ursula or PlasmaOrdered By: Winnie Grande on 08-11-2024 Chloride [Moles/Vol] Chloride [Moles/vol ume] in Serum or Plasma 98-107 [facility] Complete Blood Count Auto Di ffon 08-11-2024 Basophils (Bld) [#/Vol] 0.0 10*3/uL Normal 0.0-0.2 The [facility] Comment on above: Result Comment: PERF ORMED BY: [facility] [address] [place] [address] PATHOLOGIST TRAIN DIRECTOR OSCAR HAY M.D. Performed By: #### H S TROP #### [address] Basophils/100 WBC (Bld) 0.1 % Normal . [facility] Comment on above: Performed By: #### H S TROP #### [address] Eosinophils (Bld) [#/Vol] 0.0 10*3/uL Normal 0.0-0.45 The [facility] Comment on above: Performed By: #### H S TROP #### [address] Eosinophils/100 WBC (Bld) 0.3 % Normal . The [facility] Comment on above: Performed By: #### H S TROP #### [address] Erythrocyte distribution width (RBC) [Ratio] 13.8 % Normal 12.0-14.8 The [facility] Comment on above: Performed By: #### H S TROP #### [address] Hematocrit (Bld) [Volume fraction] 45.5 % Normal 38.8-50.0 The [facility] Comment on above: Performed By: #### H S TROP #### [address] Hemoglobin (Bld) [Mass/Vol] 15.5 g/dL Normal 13.0-17.0 The [facility] Comment on above: Performed By: #### H S TROP #### [place] [address] [place] Lymphocytes (Bld) [#/Vol] 0.9 10*3/uL Low 1.00-4.8 The [facility] Comment on above: Performed By: #### H S TROP #### [place] [address] [place] Lymphocytes/100 WBC (Bld) 6.3 % Normal . [facility] Comment on above: Performed By: #### H S TROP #### [address] MCH (RBC) [Entitic mass] 35.4 pg High 27.5-35.2 The [facility] Comment on above: Performed By: #### H S TROP #### [address] MCV (RBC) [Entitic vol] 104.0 fL High 83.5-101 The [facility] Comment on above: Performed By: #### H S TROP #### [address] Mean Corpuscular HGB Conc 34.1 g/dL Normal 32.5-35.6 The [facility] Comment on above: Performed By: #### H S TROP #### [address] Monocytes (Bld) [#/Vol] 0.8 10*3/uL Normal 0.0-0.8 The [facility] Comment on above: Performed By: #### H S TROP #### [place] [address] [place] Monocytes/100 WBC (Bld) 19.81 % Normal 0.00-20.00 [facility] Comment on above: Performed By: #### H S TROP #### [address] Monocytes/100 WBC (Bld) 5.5 % Normal . [facility] Comment on above: Performed By: #### H S TROP #### [address] Neutrophils (Bld) [#/Vol] 12.0 10*3/uL High 1.8-7.7 [facility] Comment on above: Performed By: #### H S TROP #### [address] Neutrophils/100 WBC (Bld) 87.8 % Normal . [facility] Comment on above: Performed By: #### H S TROP #### [address] NRBC% 0.1 /100{WBC} Normal 0-0.5 [facility] Comment on above: Performed By: #### H S TROP #### [address] Platelet mean volume (Bld) [Entitic vol] 8.9 fL Normal 6.6-10.1 [facility] Comment on above: Performed By: #### H S TROP #### [address] Platelets (Bld) [#/Vol] 146 10*3/uL Low 150-450 [facility] Comment on above: Performed By: #### H S TROP #### [address] RBC (Bld) [#/Vol] 4.38 10*6/uL Normal 3.90-5.60 The [facility] Comment on above: Performed By: #### H S TROP #### [address] WBC (Bld) [#/Vol] 13.6 10*3/uL High 4.1-10.5 [facility] Comment on above: Performed By: #### H S TROP #### [address] Creatine Kinaseon 08-11-2024 CK [Catalytic activity/Vol] 15 U/L Low 30-223 [facility] Comment on above: Performed By: #### B MP, CBC #### [place] [address] [place] Creatine kinase [Enzymatic a ctivity/volume] in Serum or PlasmaOrdered By: Winnie Grande on 08-11-2024 CK [Catalytic activity/Vol] Creatine kinase [Enzymatic activity/volume] in Serum or Plasma Low 30-223 [facility] Creatinine [Mass/volume] in Serum or PlasmaOrdered By: Winnie Grande on 08-11-2024 Creatinine [Mass/Vol] Creatinine [Mass/v olume] in Serum or Plasma 0.70-1.30 [facility] ECG 12 lead ECGon 08-11-2024 ECG 12 lead ECG [facility] [place] [id number] Electrocardiograph Report Signed Patient: Esme Steven MR#: [id number] : 1960 Acct:[id number] Age/Sex: 63 / M ADM Date: 08/11/24 Loc: Room: [address] [place] [address] Type: ADM INOo Attending Dr: Lydia Connelly MD Ordering Provider: Lydia Connelly MD Date of Service: 08/11/2408/31/1330 ECG/ECG 12 lead ECG: Chest Pain Copies to: Test Reason : Blood Pressure : 143/90 mmHG Vent. Rate : 101 BPM Atrial Rate : 107 BPM P-R Int : * ms QRS Dur : 106 ms QT Int : 366 ms P-R-T Axes : * 57 84 degrees QTcB Int : 474 ms Atrial fibrillation with rapid ventricular response Nonspecific T wave abnormality Abnormal ECG When compared with ECG of 11-Aug-2024 09:57, (Unconfirmed) QT has lengthened Confirmed by WINNIE GRANDE DO ([id number]) on 08/11/2024 7:48:56 PM Referred By: Electronically Signed By: WINNIE GRANDE DO Transcribed By: MUS Signed By Winnie Grande DO 1948 Normal [facility] ECG 12 lead ECG [place] [id number] Electrocardiograph Report Signed Patient: Esme Steven MR#: [id number] : 1960 Acct:[id number] Age/Sex: 63 / M ADM Date: 08/11/24 Loc: Room: [address] [place] [address] Type: ADM INOo Attending Dr: Lydia Connelly MD Ordering Provider: Winnie Grande DO Date of Service: 08/11/2408/31/1005 ECG/ECG 12 lead ECG: Chest Pain Copies to: Test Reason : Blood Pressure : 150/90 mmHG Vent. Rate : 107 BPM Atrial Rate : 141 BPM P-R Int : * ms QRS Dur : 106 ms QT Int : 312 ms P-R-T Axes : * 51 15 degrees QTcB Int : 416 ms Atrial fibrillation with rapid ventricular response Abnormal ECG When compared with ECG of 30-Aug-2023 17:44, Atrial fibrillation has replaced Sinus rhythm Confirmed by WINNIE GRANDE DO ([id number]) on 08/11/2024 7:47:26 PM Referred By: Electronically Signed By: WINNIE GRANDE DO Transcribed By: MUS Signed By Winnie Grande DO 1946 Normal [facility]icon [facility] echo tran[facility]horacic [facility] [place] [address] Echocardiogram Signed Patient: Esme Steven MR#: [id number] : 1960 Acct:[id number] Age/Sex: 63 / M ADM Date: 08/11/24 Loc: Room: [address] [place] [address] Type: ADM INOo Attending Dr: Lydia Connelly MD Ordering Provider: Lydia Connelly MD Date of Service: 08/11/2408/31/1330 [facility] tran[facility]: Chest Pain Copies to: MD Lydia Panda MD Height: 61 in Weight: 233 lb Performed By: Narinder Lezama RDCS, T BSA: 2.0 m2 BP: 137/98 mmHg HR: 98 Reason For Study: Chest Pain History: PCI, CABG, AFib, Watchman - 07/01, HTN, HLD, FER, VT, MV disorder, CAD Interpretation Summary The LV ejection fraction is 45 %. The LV ejection fraction is mildly decreased . Septal motion is consistent with post-operative state. Mild concentric left ventricular hypertrophy. The left atrium appears severely dilated. The right atrium is moderately dilated. There is trace mitral regurgitation. There is no comparison study available. Procedure/Quality: A two-dimensional transthoracic echocardiogram with color flow, Doppler and injection of contrast agent Definity was performed. The study was technically suboptimal in quality due to poor acoustic windows . Left Ventricle: The left ventricular size is normal. Mild concentric left ventricular hypertrophy. The LV ejection fraction is 45 %. The LV ejection fraction is mildly decreased . Inadequate for diastolic assessment. Septal motion is consistent with post-operative state. Left Atrium: The left atrium appears severely dilated. Right Atrium: The right atrium is moderately dilated. Right Ventricle: The right ventricle is not well visualized. The right ventricle is grossly normal size. Aortic Valve: The aortic valve is normal in structure. No hemodynamically significant valvular aortic stenosis. No aortic regurgitation is present. Mitral Valve: The mitral valve is not well visualized. There is trace mitral regurgitation. Tricuspid Valve: The tricuspid valve is not well visualized. No tricuspid regurgitation. Pulmonic Valve: The pulmonic valve is not well visualized. Arteries: The aortic root is normal size. Pericardium/Pleura: No pericardial effusion seen. IVC/Hepatic Veins: The inferior vena cava was not visualized during the exam. Measurements with Normals IVSd: 1.3 cm (0.7-1.1 cm)LVIDd: 4.8 cm (3.7-5.4 cm) LVPWd: 1.3 cm (0.7-1.1 cm)LVIDs: 3.9 cm (2.3-3.6 cm) LA dimension: 4.4 cm (2.3-4.0 cm)Ao root diam: 3.1 cm(2.0-3.6 cm) asc Aorta Diam: 3.7 cm(2.1-3.4cm) Doppler with Normals RVSP(TR): 29.2 mmHg (18-35mmHg) LV V1 max: 59.6 cm/sec(0.7-1.7m/s)MV E max orquidea: 58.9 cm/sec(0.8-1.3m/s) MMode/2D Measurements Calculations TAPSE: 1.4 cm RV Base: 4.3 cm FS: 18.8 % Ao root area: RV S Orquidea: RV Mid: 3.5 cm EDV(Teich): 107.5 ml 7.5 cm2 8.4 cm/sec RV Length: 6.7 cm ESV(Teich): 65.9 ml EF(Teich): 38.7 % __ LVOT diam: 2.0 cm LVLd ap4: 9.0 cm SV(MOD-sp4): 58.5 ml LAV(MOD-sp4): LVOT area: 3.1 cm2 EDV(MOD-sp4): 120.0 ml 150.0 ml LAV(MOD-sp2): LVLs ap4: 7.6 cm 114.0 ml ESV(MOD-sp4): 91.5 ml EF(MOD-sp4): 39.0 % __ LA A2 area: RA Volume: RA Volume Index: 32.1 cm2 105.0 ml 52.2 ml/m2 LA A4 area: 33.9 cm2 LA length (vol): 7.9 cm LA vol: 117.4 ml LA vol index: 58.3 ml/m2 Doppler Measurements Calculations MV dec time: MV V2 max: E/E' lat: 4.9 MV dec slope: 0.20 sec 124.7 cm/sec 310.0 cm/sec2 MV max P.0 mmHg MV V2 mean: 60.0 cm/sec MV mean P.0 mmHg MV V2 VTI: 21.7 cm MVA(VTI): 1.6 cm2 __ Ao V2 max: LV V1 max PG: MR max orquidea: TV max P.0 mmHg 107.0 cm/sec 1.4 mmHg 503.0 cm/sec Ao max P.6 mmHgLV V1 mean PG: MR max PG: Ao mean P.0 mmHg 101.2 mmHg 3.0 mmHg LV V1 mean: Ao V2 mean: 40.3 cm/sec 75.0 cm/sec LV V1 VTI: 10.9 cm Ao V2 VTI: 18.0 cm DIANDRA(I,D): 1.9 cm2 DIANDRA(V,D): 1.7 cm2 __ TR max orquidea: 256.0 cm/sec TR max P.2 mmHg RAP systole: 3.0 mmHg ___ Transcribed By: SCV Performed At: 08/11/24 9974 Signed By: Will Koch MD 08/11/24 8746 Normal [facility] Eosinophils Auto (Bld) [#/Vo l]Ordered By: Winnie Grande on 08-11-2024 Eosinophils (Bld) [#/Vol] Automated eosinophil count 0.0-0.45 [facility] Eosinophils/100 WBC Auto (Bl d)Ordered By: Winnie Grande on 08-11-2024 Eosinophils/100 WBC (Bld) Automated eosinophil % . [facility] Erythrocyte distribution wid th Auto (RBC) [Ratio]Ordered By: Winnie Grande on 08-11-2024 Erythrocyte distribution width (RBC) [Ratio] Erythrocyte distribution width [Ratio] by Automated count 12.0-14.8 [facility] Glucose [Mass/volume] in Ser um or PlasmaOrdered By: Winnie Grande on 08-11-2024 Glucose [Mass/Vol] Glucose [Mass/volume ] in Serum or Plasma High 70-100 [facility] Comment on above: ADA recommended refe rence rangeRandom Glucose Reference Range is dependent on time and content of last meal. Glucose of more than 200 mg/dL in a nonstressed, ambulatory subject supports the diagnosis of Diabetes Mellitus. Hematocrit Auto (Bld) [Volum e fraction]Ordered By: Winnie Grande on 08-11-2024 Hematocrit (Bld) [Volume fraction] Hematocrit [Volume Fraction] of Blood by Automated count 38.8-50.0 [facility] Hemoglobin [Mass/volume] in BloodOrdered By: Winnie Grande 08-11-2024 Hemoglobin (Bld) [Mass/Vol] Hemoglobin [Mass/volume] in Blood 13.0-17.0 [facility] INR in Platelet poor plasma by Coagulation assayOrdered By: Winnie Grande on 08-11-2024 INR Coag (PPP) [Relative time] INR in Platelet poor plasma by Coagulation assay [facility] Comment on above: INR Therapeutic Rang e A) Pre- and Peroperative OAT started two weeks before surgery. NOT HIP SURGERY: 1.5 - 2.5 HIP SURGERY: 2 - 3B) Primary and secondary prevention of venous THROMBOSIS: 2 - 3C) Active venous thrombosis, pulmonary embolismand prevention of recurrent venous thrombosis: 2 - 3D) Prevention of arterial thromboembolismincluding patients with mechanical heart valves: 3 - 4.5 Leukocytes [#/volume] correc collins for nucleated erythrocytes in Blood by Automated counOrdered By: Winnie Grande on 08-11-2024 WBC corrected for nucl RBC Auto (Bld) [#/Vol] Leukocytes [#/volume] corrected for nucleated erythrocytes in Blood by Automated coun High 4.1-10.5 [facility] Lymphocytes Auto (Bld) [#/Vo l]Ordered By: Winnie Grande on 08-11-2024 Lymphocytes (Bld) [#/Vol] Lymphocytes [#/volume] in Blood by Automated count Low 1.00-4.8 [facility] Lymphocytes/100 WBC Auto (Bl d)Ordered By: Winnie Grande on 08-11-2024 Lymphocytes/100 WBC (Bld) Lymphocytes/100 leukocytes in Blood by Automated count . [facility] MCH Auto (RBC) [Entitic mass ]Ordered By: Winnie Grande on 08-11-2024 MCH (RBC) [Entitic mass] MCH [Entitic mass] by Automated count High 27.5-35.2 [facility] MCHC Auto (RBC) [Mass/Vol]Or dered By: Winnie Grande on 08-11-2024 MCHC (RBC) [Mass/Vol] MCHC [Mass/volume] by Automated count 32.5-35.6 [facility] MCV Auto (RBC) [Entitic vol] Ordered By: Winnie Grande on 08-11-2024 MCV (RBC) [Entitic vol] MCV [Entitic volume] by Automated count High 83.5-101 [facility] Monocyte distribution width [Entitic volume] in Blood by AutomatedOrdered By: Winnie Grande on 08-11-2024 Monocyte distribution width Auto (Bld) [Entitic vol] Monocyte distribution width [Entitic volume] in Blood by Automated 0.00-20.00 [facility] Monocytes Auto (Bld) [#/Vol] Ordered By: Winnie Grande on 08-11-2024 Monocytes (Bld) [#/Vol] Automated blood monocyte count 0.0-0.8 [facility] Monocytes/100 WBC Auto (Bld) Ordered By: Winnei Grande on 08-11-2024 Monocytes/100 WBC (Bld) Automated monocyte % . [facility] Natriuretic peptide B [Mass/ Vol]Ordered By: Winnie Grande on 08-11-2024 Natriuretic peptide B (Bld) [Mass/Vol] BNP ser/plas High 5-100 [facility] Neutrophils Auto (Bld) [#/Vo l]Ordered By: Winnie Grande on 08-11-2024 Neutrophils (Bld) [#/Vol] Neutrophils [#/volume] in Blood by Automated count High 1.8-7.7 [facility] Neutrophils/100 WBC Auto (Bl d)Ordered By: Winnie Grande on 08-11-2024 Neutrophils/100 WBC (Bld) Automated neutrophil % . [facility] No Panel InformationOrdered By: Winnie Grande on 08-11-2024 Estimated GFR (CKD-EPI) > 60.0 mL/Min [facility] Creatinine Clearance (Chem 124.04 [facility] Nucleated erythrocytes [Pres ence] in Blood by Automated countOrdered By: Winnie Grande on 08-11-2024 Nucleated RBC Auto Ql (Bld) Nucleated erythrocytes [Presence] in Blood by Automated count 0-0.5 [facility] Platelet mean volume Auto (B ld) [Entitic vol]Ordered By: Winnie Grande on 08-11-2024 Platelet mean volume (Bld) [Entitic vol] Platelet mean volume [Entitic volume] in Blood by Automated count 6.6-10.1 [facility] Platelets Auto (Bld) [#/Vol] Ordered By: Winnie Grande on 08-11-2024 Platelets (Bld) [#/Vol] Platelets [#/volume] in Blood by Automated count Low 150-450 [facility] Potassium [Moles/volume] in Serum or PlasmaOrdered By: Winnie Grande on 08-11-2024 Potassium [Moles/Vol] Potassium [Moles/v olume] in Serum or Plasma 3.5-5.1 [facility] Comment on above: Hemolysis is present at a level that could interfere with the result.Contact lab if redraw is required Prothrombin Time INRon 08-11 INR Coag (PPP) [Relative time] 1.1 {INR} Normal [facility] Comment on above: Result Comment: INR Therapeutic Range A) Pre- [...] with mechanical heart valves: 3 - 4.5 PERFORMED BY: [place] [address] PATHOLOGIST TRAIN DIRECTOR OSCAR HAY M.D. Performed By: #### H S TROP #### [address] PT Coag (PPP) [Time] 12.5 s Normal 9.0-12.9 [facility] Comment on above: Result Comment: A he matocrit value greater than 55% may lead to inaccurate results in coagulation testing. Patients having hematocrit values >55% require a special collection tube for coagulation studies. Please contact the laboratory at [phone] for redraw instructions. Performed By: #### H S TROP #### [facility] [address] [place], [place] [id number] [facility] Prothrombin time (PT)Ordered By: Winnie Grande on 08-11-2024 PT Coag (PPP) [Time] Prothrombin time (PT) 9.0- 12.9 [facility] Comment on above: A hematocrit value g reater than 55% may lead to inaccurate results in coagulation testing. Patients having hematocrit values >55% require a special collection tube for coagulation studies. Please contact the laboratory at [phone] for redraw instructions. RBC Auto (Bld) [#/Vol]Ordere d By: Winnie Grande on 08-11-2024 RBC (Bld) [#/Vol] Erythrocytes [#/volu me] in Blood by Automated count 3.90-5.60 [facility] Serum or plasma anion gap de terminationOrdered By: Winnie Grande on 08-11-2024 Anion gap [Moles/Vol] Serum or plasma an ion gap determination 6.0-15.0 [facility] Sodium [Moles/volume] in Ser um or PlasmaOrdered By: Winnie Grande on 08-11-2024 Sodium [Moles/Vol] Sodium [Moles/volume ] in Serum or Plasma Low 136-145 [facility] Thyroid Stimulating Hormoneo n 08-11-2024 TSH Qn 0.50 m[IU]/L Normal 0.45-5.33 [facility] Comment on above: Result Comment: PERF ORMED BY: [place] [address] PATHOLOGIST TRAIN DIRECTOR OSCAR HAY M.D. Performed By: #### T SH3 #### [address] Thyrotropin [Units/volume] i n Serum or PlasmaOrdered By: Lydia Connelly on 08-11-2024 TSH Qn Thyrotropin [Units/volume] in Serum or Plasma 0.45-5.33 [facility] Troponin I High Sensitivityo n 08-11-2024 Troponin I High Sensitivity 14 Normal 0-20 [facility] Comment on above: Result Comment: The Troponin units of report have been changed to meet the Chest Pain Accreditation requirement, element EC5.M1l2. Troponin units are changed from pg/ml to ng/L. Also, the decimal is removed and results are in whole numbers. PERFORMED BY: [place] [address] PATHOLOGIST TRAIN DIRECTOR OSCAR HAY M.D. Performed By: #### T SH3 #### [address] Troponin I High Sensitivity 14 Normal 0-20 [facility] Comment on above: Result Comment: The Troponin units of report have been changed to meet the Chest Pain Accreditation requirement, element EC5.M1l2. Troponin units are changed from pg/ml to ng/L. Also, the decimal is removed and results are in whole numbers. PERFORMED BY: [place] [address] PATHOLOGIST TRAIN DIRECTOR OSCAR HAY M.D. Performed By: #### H S TROP #### [address] Troponin I High Sensitivity 16 Normal 0-20 [facility] Comment on above: Result Comment: The Troponin units of report have been changed to meet the Chest Pain Accreditation requirement, element EC5.M1l2. Troponin units are changed from pg/ml to ng/L. Also, the decimal is removed and results are in whole numbers. PERFORMED BY: [place] [address] PATHOLOGIST TRAIN DIRECTOR OSCAR HAY M.D. Performed By: #### B MP, CBC #### [address] Troponin I.cardiac [Mass/vol ume] in Serum or Plasma by Detection limit <= 0.01 ng/Ordered By: Lydia Connelly on 08-11-2024 Troponin I.cardiac DL <= 0.01 ng/mL [Mass/Vol] Troponin I.cardiac [Mass/volume] in Serum or Plasma by Detection limit <= 0.01 ng/ 0-20 [facility] Comment on above: The Troponin units o f report have been changed to meet the Chest Pain Accreditation requirement, element EC5.M1l2. Troponin units are changed from pg/ml to ng/L. Also, the decimal is removed and results are in whole numbers. Urea nitrogen [Mass/volume] in Serum or PlasmaOrdered By: Winnie Grande on 08-11-2024 Urea nitrogen [Mass/Vol] Urea nitrogen [Mass/volume] in Serum or Plasma 10-31 [facility] WBC Auto (Bld) [#/Vol]Ordere d By: Winnie Grande on 08-11-2024 WBC (Bld) [#/Vol] Leukocytes [#/volume ] in Blood by Automated count High 4.1-10.5 [facility] X-ray reportOrdered By: Don Castro on 08-11-2024 Study report [facility] [place] [address] [place] [address] XRay Report Signed Patient: Esme Steven MR#: [id number] : 1960 Acct:[id number] Age/Sex: 63 / M ADM Date: 5 Loc: ER Room: Type: [facility] ER Attending Dr: Copies to: Winnie Grande, ~ Ordering Provider: Winnie Grande DO Date of Service: 08/11/24 XR/XR chest 2V*: Chest Pain Chest 2 views CLINICAL HISTORY: Chest pain shortness of breath A. fib for 3 days COMPARISON: Chest 08/30/2023 FINDINGS: Post CABG changes. No lung consolidation pneumothorax pleural effusion or free air. Cardiomegaly is unchanged. XR/XR chest 2V* IMPRESSION: NO ACUTE CARDIOPULMONARY ABNORMALITY. Impression dictated by: Alex Castro Jr., D.O. 08/11/2024 11:24 AM Dictation Location: RADIO-PC-23 Transcribed By: GWEN 08/11/24 112 Dictated By: Alex Castro Jr, DO 08/11/24 112 Signed By: 08/11/24 1124 [facility] XR chest 2V*on 08-11-2024 XR chest 2V* [facility] [place] [place] [address] XRay Report Signed Patient: Esme Steven MR#: [id number] : 1960 Acct:[id number] Age/Sex: 63 / M ADM Date: 08/11/24 Loc: ER Room: Type: [facility] ER Attending Dr: Copies to: Winnie Grande DO Ordering Provider: Winnie Grande DO Date of Service: 08/11/24 XR/XR chest 2V*: Chest Pain Chest 2 views CLINICAL HISTORY: Chest pain shortness of breath A. fib for 3 days COMPARISON: Chest 08/30/2023 FINDINGS: Post CABG changes. No lung consolidation pneumothorax pleural effusion or free air. Cardiomegaly is unchanged. XR/XR chest 2V* IMPRESSION: NO ACUTE CARDIOPULMONARY ABNORMALITY. Impression dictated by: Alex Castro Jr., D.O. 08/11/2024 11:24 AM Dictation Location: RADIO-PC-23 Transcribed By: GWEN 08/11/24 1124 Dictated By: Alex Castro Jr, DO 08/11/24 112 Signed By: 08/11/24 1124 Normal [facility] X-ray reportOrdered By: Tri Camilo on 08-06-2024 Study report [facility] [place] [address] [place] [address] XRay Report Signed Patient: Esme Steven MR#: [id number] : 1960 Acct:[id number] Age/Sex: 63 / M ADM Date: 5 [facility]: Type: [facility] Attending Dr: Sarai Mendez II, MD Copies to: Sarai Mendez MD~ Ordering Provider: Sarai Mendez MD Date of Service: 08/06/24 XR/XR hip LT min 2V(w/wo pelvis)*: Z96.642 - Presenceof left artificial hip joint WEIGHTBEARING AP LOW PELVIS AND LEFT HIP - 2 views: CLINICAL HISTORY: Left hip pain following fall COMPARISON: 08/01/2024 AP view the low pelvis and crosstable lateral view of the left hip were obtained. There are bilateral hip prostheses. The hardware appears intact and unchanged from the prior. There is no developing fracture or dislocation. There is minor sclerosis at the SI joints. There is prior laminectomy and mild degenerative change involving the lower imaged lumbar spine There are no significant soft tissue abnormalities. XR/XR hip LT min 2V(w/wo pelvis)* IMPRESSION: STABLE HIP PROSTHESES. NO ACUTE BONY INJURY. Impression dictated by: Gisell Camilo M.D. 08/06/2024 5:00 PM Dictation Location: [place] [address] Transcribed By: [facility] 08/06/24 1700 Dictated By: Gisell Camilo MD 08/06/24 6501 Signed By: 08/06/241699 [facility] Work Phone: XR hip LT min 2V(w/wo pelvis )*on 08-06-2024 XR hip LT min 2V(w/wo pelvis)* [facility] [place] [address] [place] [address] XRay Report Signed Patient: Esme Steven MR#: [id number] : 1960 Acct:[id number] Age/Sex: 63 / M ADM Date: 08/06/24 Loc: SOXD Room: Type: REG CLI Attending Dr: Sarai Mendez II, MD Copies to: Sarai Mendez MD Ordering Provider: Sarai Mendez MD Date of Service: 08/06/24 XR/XR hip LT min 2V(w/wo pelvis)*: Z96.642 - Presence of left artificial hip joint WEIGHTBEARING AP LOW PELVIS AND LEFT HIP - 2 views: CLINICAL HISTORY: Left hip pain following fall COMPARISON: 08/01/2024 AP view the low pelvis and crosstable lateral view of the left hip were obtained. There are bilateral hip prostheses. The hardware appears intact and unchanged from the prior. There is no developing fracture or dislocation. There is minor sclerosis at the SI joints. There is prior laminectomy and mild degenerative change involving the lower imaged lumbar spine There are no significant soft tissue abnormalities. XR/XR hip LT min 2V(w/wo pelvis)* IMPRESSION: STABLE HIP PROSTHESES. NO ACUTE BONY INJURY. Impression dictated by: Gisell Camilo M.D. 08/06/2024 5:00 PM Dictation Location: [facility]- Transcribed By: [facility] 08/06/24 1700 Dictated By: Gisell Camilo MD 08/06/24 1659 Signed By: 08/06/24 1700 Normal [facility] X-ray reportOrdered By: Viraj Paul on 08-04-2024 Study report [facility] [place] [place] [facility] [address] [place] [address] XRay Report Signed Patient: Esme Steven MR#: [id number] : 1960 Acct:[id number] Age/Sex: 63 / M ADM Date: Loc: [facility] Room: Type: REG CLI Attending Dr: Chio Nichole MD Copies to: Chio Nichole MD~ Ordering Provider: Chio Nichole MD Date of Service: 08/04/24 XR/XR hand LT min 3V*: M79.642 - Pain in left hand LEFT HAND - 4 views COMPARISON: None REASON FOR EXAM: Injury, pain base of fifth metacarpal FINDINGS: 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 Jvam-dm-lvfvhhxk degenerative changes elsewhere. No fractures or dislocation.. Mild intercarpal degenerative changes. XR/XR hand LT min 3V* IMPRESSION: NO ACUTE BONY INJURY. Impression dictated by: Ap Paul M.D. 08/04/2024 7:49 PM Dictation Location: RADIO-PC-29 Transcribed By: GWEN 08/04/241948 Dictated By: Ap Paul MD 08/04/241946 Signed By: 08/04/241948 [facility] Work Phone: XR hand LT min 3V*on 025 XR hand LT min 3V* [facility] [place] [address] [place] [address] XRay Report Signed Patient: Esme Steven MR#: [id number] : 1960 Acct:[id number] Age/Sex: 63 / M ADM Date: 08/04/24 Loc: [facility] Room: Type: [facility] Attending Dr: Chio Nichole MD Copies to: Chio Nichole MD Ordering Provider: Chio Nichole MD Date of Service: 08/04/24 XR/XR hand LT min 3V*: M79.642 - Pain in left hand LEFT HAND - 4 views COMPARISON: None REASON FOR EXAM: Injury, pain base of fifth metacarpal FINDINGS: 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 Mbdr-qa-wcwwrbsy degenerative changes elsewhere. No fractures or dislocation.. Mild intercarpal degenerative changes. XR/XR hand LT min 3V* IMPRESSION: NO ACUTE BONY INJURY. Impression dictated by: Ap Paul M.D. 08/04/2024 7:49 PM Dictation Location: RADIO-PC-29 Transcribed By: GWEN 08/04/241948 Dictated By: Ap Paul MD 08/04/241946 Signed By: 08/04/241948 Normal [facility] X-ray reportOrdered By: Tri Camilo on 08-01-2024 Study report [facility] Main [address] [address] XRay Report Signed Patient: Esme Steven MR#: [id number] : 1960 Acct:[id number] Age/Sex: 63 / M ADM Date: 5 Loc: ER Room: Type: [facility] ER Attending Dr: Copies to: Cosmo Guzman APRN~ Ordering Provider: Cosmo Guzman APRN Date of Service: 08/01/24 XR/XR hip LT min 2V(w/wo pelvis)*: Fall LEFT HIP WITH AP PELVIS - 3 views COMPARISON: CT 08/30/2023 and pelvis 05/16/2023 CLINICAL DATA: Patient fell last week. Hip pain. Previous hip replacements. AP view of the pelvis as well as AP and frog-lateral views of the left hip were obtained. Bilateral hip prostheses are again visualized. The hardware appears intact and unchanged from the prior. No acute fracture or dislocation is identified. The SI joints are intact. There is prior laminectomy as well as degenerative changes involving the lower imaged lumbar spine. No soft tissue abnormalities are present. XR/XR hip LT min 2V(w/wo pelvis)* IMPRESSION: STABLE HIP REPLACEMENTS. NO ACUTE BONY INJURY. Impression dictated by: Gisell Camilo M.D. 08/01/2024 11:52 AM Dictation Location: [place] [address] Transcribed By: [facility] 08/01/24 1152 Dictated By: Gisell Camilo MD 08/01/24 1150 Signed By: 08/01/24 1152 [facility] Work Phone: XR hip LT min 2V(w/wo pelvis )*on 08-01-2024 XR hip LT min 2V(w/wo pelvis)* [facility] Main [address] [address] XRay Report Signed Patient: Esme Steven MR#: [id number] : 1960 Acct:[id number] Age/Sex: 63 / M ADM Date: 08/01/24 Loc: ER Room: Type: [facility] ER Attending Dr: Copies to: Cosmo Guzman APRN Ordering Provider: Cosmo Guzman APRN Date of Service: 08/01/24 XR/XR hip LT min 2V(w/wo pelvis)*: Fall LEFT HIP WITH AP PELVIS - 3 views COMPARISON: CT 08/30/2023 and pelvis 05/16/2023 CLINICAL DATA: Patient fell last week. Hip pain. Previous hip replacements. AP view of the pelvis as well as AP and frog-lateral views of the left hip were obtained. Bilateral hip prostheses are again visualized. The hardware appears intact and unchanged from the prior. No acute fracture or dislocation is identified. The SI joints are intact. There is prior laminectomy as well as degenerative changes involving the lower imaged lumbar spine. No soft tissue abnormalities are present. XR/XR hip LT min 2V(w/wo pelvis)* IMPRESSION: STABLE HIP REPLACEMENTS. NO ACUTE BONY INJURY. Impression dictated by: Gisell Camilo M.D. 08/01/2024 11:52 AM Dictation Location: [place] [address] Transcribed By: [facility] 08/01/24 1152 Dictated By: Gisell Camilo MD 08/01/24 1150 Signed By: 08/01/24 1152 Normal [facility] Tuyet 07-07-2024 VICKIE Telephone (RADHA) ----- ESME STEVEN ([id number]) 1960 M Date Time Provider Department 07/07/24 HELADIO PINEDA During your visit today, we recorded the following information about you: Heladio Pineda MD 08/18/2024 7:35 PM Addendum Please Call patient if MyChart note not read to review results/released to My Chart if tests completed at [facility]: Mildly high wbc, glucose, and one liver function test- care per primary care provider. High uric acid- maybe associated with gout/water pills, please limit alcohol/red meat/shellfish/pop/corn syrup, will monitor with primary care provider. Increase gout medication allopurinol 200mg daily. Low vitamin D maybe associated with fatigue/joint/muscle pain. Start and stay on vitamin D script with food. Rest of labs normal and no inflammation. New script sent to pharmacy. Notify office if medication change is not tolerated. Recheck nonfasting labs in 3months, orders have been placed. Happy to further review and discuss at follow up visit. Thank you. 08/18/24 patient requests to wean off prednisone. May try decreasing prednisone 3mg twice a day x 1-2weeks, then 2mg twice a day 1-2weeks, then 1mg twice a day x 1-2weeks, then 1mg daily x 1-2weeks, then 1mg every other day x 1-2weeks, then off if tolerated. When off prednisone, may resume celebrex. Please schedule nonfasting labs in 1month. 08/07/24 states he is taking 4mg of prednisone twice daily (would not recommend celebrex) 08/06/24 is there a way to get me off the steroid I'm on and go back on my celebrex it did the same as the steroid actually better I had a watchman device put in my heart I'm on no blood thinners any more thanks 06/30/24 high wbc 12.61, glucose 213, alt 73,uric acid 6.4;low vitamin D 19.2;normal rest of cbc, cmp, esr 12, crp 0.6; Patient's request for medication is as follows: Requested Prescriptions Signed Prescriptions Disp Refills allopurinol (ZYLOPRIM) 100 mg tablet 180 tablet 3 Sig: Take 2 tablets by mouth every afternoon. Authorizing Provider: HELADIO PINEDA ergocalciferol 50,000 unit capsule (VITAMIN D2, DRISDOL) 24 capsule 1 Sig: (take by mouth with food twice a week, ONE CAPSULE ON SUNDAY AND ONE ON SUNDAY) FOR A TOTAL OF 10 WEEKS. Then once a week thereafter Authorizing Provider: HELADIO PINEDA Prescription(s) as above. Please process accordingly. MD Kristin Jeffery Margaret, MD 08/06/2024 5:21 PM Signed Please call patient Thank you for update. Good to know you are off blood thinners. Ok to switch to celebrex. Please inquire and document how much prednisone is patient taking daily? Thank you. Erica Boyce 08/07/2024 8:09 AM Signed Patient calling, states he is taking 4mg of prednisone twice daily Heladio Pineda MD 08/14/2024 6:30 PM Signed Please call patient Thank you for the update. Since taking prednisone 4mg twice a day, would not recommended celebrex due to risk of GI upset/GERD, bleeding, etc. May take acetaminophen/tylenol and or over the counter arthritis creams AND patches for pain if helpful. If prednisone is at a lower dose may consider restarting celebrex or other oral nsaids. Thank you. Melany Pearson MA 08/15/2024 11:05 AM Signed Pt is aware of recommendations and wants to know when can he be off of the prednisone to resume celebrex? Heladio Pineda MD 08/18/2024 7:35 PM Addendum Please call patient May try decreasing prednisone 3mg twice a day x 1-2weeks, then 2mg twice a day 1-2weeks, then 1mg twice a day x 1-2weeks, then 1mg daily x 1-2weeks, then 1mg every other day x 1-2weeks, then off if tolerated. When off prednisone, may resume celebrex. Please schedule nonfasting labs in 1month. Thank you Heladio Pineda MD 08/18/2024 7:35 PM Signed Addended by: HELADIO PINEDA on: 08/18/2024 07:35 PM Modules accepted: Melany Minor MA 08/19/2024 10:18 AM Signed Spoke to pt aware of recommendations. 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 Then once a week thereafterDisp: 24 capsuleRfl: 1 COMPREHENSIVE METABOLIC PANEL [SQCMP] Or (more content not included)... Normal [facility] 25(OH)D3 [facility] 25-hydroxyvitamin D3 [Mass/Vol] 19.2 ng/mL Low 31.0-80.0 [facility] Comment on above: Order Comment: Speci men Type: BLOOD SPECIMEN Ordering Facility: [facility] Address: [address] [place] [address] Result Comment: Clas sification of 25 [place] Vitamin D status: Deficiency/Insufficiency: < or = 30 ng/ml. Sufficiency/Optimal Levels: 31-80 ng/mL Toxicity: > 100 ng/mL. Test performed by chemiluminescent immunoassay. Performed By: #### 1 989-3 #### [facility] CLIA [id number] [address] [place] [address] [place] [address] [place] CBC panel Auto (Bld)on 06-30 Erythrocyte distribution width (RBC) [Ratio] 13.3 % 11.5 - 15.0 % [facility] Hematocrit (Bld) [Volume fraction] 49.9 % 39.0 - 51.0 % [facility] Hemoglobin (Bld) [Mass/Vol] 16.9 g/dL 13.0 - 17.0 g/dL [facility] Interpretation and review of laboratory results Abnormal [facility] MCH (RBC) [Entitic mass] 35.2 pg High 26.0 - 34.0 pg [facility] MCHC (RBC) [Mass/Vol] 33.9 g/dL 30.5 - 36.0 g/dL [facility] MCV (RBC) [Entitic vol] 104 fL High 80.0 - 100.0 fL [facility] Nucleated RBC (Bld) [#/Vol] NINF [facility] Platelet mean volume (Bld) [Entitic vol] 10.6 fL 9.0 - 12.7 fL [facility] Platelets (Bld) [#/Vol] 239 10*3/uL [facility] RBC (Bld) [#/Vol] 4.8 10*6/uL 4.20 - 6.00 m/uL [facility] WBC (Bld) [#/Vol] 12.61 10*3/uL High [facility] Erythrocyte distribution width (RBC) [Ratio] 13.3 % Normal 11.5-15.0 [facility] Comment on above: Order Comment: Speci men Type: BLOOD SPECIMEN Ordering Facility: [facility] Address: [address] [place] [address] Performed By: #### 5 8410-2, 4537-7 #### [facility] CLIA [id number] [address] [place] [address] [place] Hematocrit (Bld) [Volume fraction] 49.9 % Normal 39.0-51.0 [facility] Comment on above: Order Comment: Speci men Type: BLOOD SPECIMEN Ordering Facility: [facility] Address: [address] [place] [address] Performed By: #### 5 8410-2, 4537-7 #### [facility] CLIA [id number] [address] [place] [address] [place] Hemoglobin (Bld) [Mass/Vol] 16.9 g/dL Normal 13.0-17.0 [facility] Comment on above: Order Comment: Speci men Type: BLOOD SPECIMEN Ordering Facility: [facility] Address: [address] [place] [address] Performed By: #### 5 8410-2, 4536-7 #### [facility] CLIA [id number] [address] [place] [address] [place] MCH (RBC) [Entitic mass] 35.2 pg High 26.0-34.0 [facility] Comment on above: Order Comment: Speci men Type: BLOOD SPECIMEN Ordering Facility: [facility] Address: [address] [place] [address] Performed By: #### 5 8410-2, 7 #### [facility] CLIA [id number] [address] [place] [address] [place] MCHC (RBC) [Mass/Vol] 33.9 g/dL Normal 30.5-36.0 [facility] Comment on above: Order Comment: Speci men Type: BLOOD SPECIMEN Ordering Facility: [facility] Address: [address] [place] [address] Performed By: #### 5 8410-2, 7 #### [facility] CLIA [id number] [address] [place] [address] [place] MCV (RBC) [Entitic vol] 104.0 fL High 80.0-100.0 [facility] Comment on above: Order Comment: Speci men Type: BLOOD SPECIMEN Ordering Facility: [facility] Address: [address] [place] [address] Performed By: #### 5 8410-2, 7 #### [facility] CLIA [id number] [address] [place] [address] [place] Nucleated RBC (Bld) [#/Vol] 10*3/uL Normal <0.01 [facility] Comment on above: Order Comment: Speci men Type: BLOOD SPECIMEN Ordering Facility: [facility] Address: [address] [place] [address] Performed By: #### 5 8410-2, 7 #### [facility] CLIA [id number] [address] [place] [address] [place] Platelet mean volume (Bld) [Entitic vol] 10.6 fL Normal 9.0-12.7 [facility] Comment on above: Order Comment: Speci men Type: BLOOD SPECIMEN Ordering Facility: [facility] Address: [address] [place] [address] Performed By: #### 5 8410-2, 4537-7 #### [facility] CLIA [id number] [address] [place] [address] [place] Platelets (Bld) [#/Vol] 239 10*3/uL Normal 150-400 [facility] Comment on above: Order Comment: Speci men Type: BLOOD SPECIMEN Ordering Facility: [facility] Address: [address] [place] [address] Performed By: #### 5 8410-2, 4537-7 #### [facility] CLIA [id number] [address] [place] [address] [place] RBC (Bld) [#/Vol] 4.80 10*6/uL Normal 4.20-6.00 [facility] Comment on above: Order Comment: Speci men Type: BLOOD SPECIMEN Ordering Facility: [facility] Address: [address] [place] [address] Performed By: #### 5 8410-2, 4537-7 #### [facility] CLIA [id number] [address] [place] [address] [place] WBC (Bld) [#/Vol] 12.61 10*3/uL High 3.70-11.00 [facility] Comment on above: Order Comment: Speci men Type: BLOOD SPECIMEN Ordering Facility: [facility] Address: [address] [place] [address] Performed By: #### 5 8410-2, 4537-7 #### [facility] CLIA [id number] [address] [place] [id number] [place] [facility] CNOVon 06-30-2024 CNOV Office Visit (RADHA ) ----- ESME STEVEN Chrissy ([id number]) 1960 M Date Time Provider Department 06/30/24 9:40 AM HELADIO PINEAD During your visit today, we recorded the following information about you: Pulse Blood pressure Weight 81/minute 136/85 107 kg Heladio Pineda MD 06/30/2024 9:17 AM Signed May apply over the counter arthritis [...] touching your toes, sit-ups, using row machine intermediate pain recommendations per primary care provider/pain clinic Nonfasting labs as scheduled Thank you. 09/05/23 normal esr 2, crp 0.8; 06/28/23 bmd WITHIN THE EXPECTED RANGE FOR AGE Latest Ref Rng 03/05/2023 WSR 0 - 15 mm/hr 9 CRP <0.9 mg/dL <0.3 Component Latest Ref Rng AND Units 01/05/2023 [...] Ab, Total Negative Negative Heladio Pineda MD 06/30/2024 10:12 AM Signed Face to face follow up for joint pain/ osteoarthritis/gout/pseud ogout/ rotator cuff tear/PMR/low vitamin D Today's visit 06/30/24: taking allopurinol 100mg daily, vitamin D script, aldactone and hctz, celebrex, eliquis, lipitor. No response with tramadol. NO eye issues. NO PMR/GCA symptoms. NO gout. Has to take medrol two tabs daily due to pain and unable to walk. Wants to increase medrol. Had a reaction with most recent prednisone but had tolerated it long time ago. 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 Off plavix x 2weeks 05/2024 fell twice on ice and steps on ice, bruises R ribs, then had bronchitis, treated with antibiotics corrie hoffman. Still has cough 09/05/23 normal esr 2, crp 0.8; 08/02/23 in hospital 07/05/23 low vitamin D 21.4;normal esr 15, crp 0.8, ck 52, aldolase 5.3, vitamin b12-685; 06/28/23 bmd WITHIN THE EXPECTED RANGE FOR AGE Outside 06/12/23 low mag 1.5;high glucose 117;normal cbc, rest of bmp; 04/18/23 in ED for chronic Afib. 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 No new swelling. Chronic current pain in muscles more the joints, weakness of arms and leg (more content not included)... Normal [facility] CRP SerPl-mCncon 06-30-2024 CRP [Mass/Vol] 0.6 mg/dL Normal <0.9 [facility] Comment on above: Order Comment: Speci men Type: BLOOD SPECIMEN Ordering Facility: [facility] Address: [address] [place] [address] Performed By: #### 1 988-5, 308-, 95849-1 #### [facility] CLIA [id number] [address] [place] [address] [place] Comprehensive metabolic 2000 panelon 06-30-2024 Albumin [Mass/Vol] 4.1 g/dL Normal 3.9-4.9 [facility] Comment on above: Order Comment: Speci men Type: BLOOD SPECIMEN Ordering Facility: [facility] Address: [address] [place] [address] Performed By: #### 1 988-5, 30807-08, #### [facility] CLIA [id number] [address] [place] [address] [place] ALP [Catalytic activity/Vol] 67 U/L Normal 38-113 [facility] Comment on above: Order Comment: Speci men Type: BLOOD SPECIMEN Ordering Facility: [facility] Address: [address] [place] [address] Performed By: #### 1 988-5, 30807-08, #### [facility] CLIA [id number] [address] [place], [place] [id number] [place] ALT [Catalytic activity/Vol] 73 U/L High 10-54 [facility] Comment on above: Order Comment: Speci men Type: BLOOD SPECIMEN Ordering Facility: [facility] Address: [address] [place] [address] Performed By: #### 1 988-5, 30807-08, 36126-6 #### [facility] CLIA [id number] [address] [place] [address] [place] Anion gap [Moles/Vol] 14 mmol/L Normal 8-15 [facility] Comment on above: Order Comment: Speci men Type: BLOOD SPECIMEN Ordering Facility: [facility] Address: [address] [place] [address] Performed By: #### 1 988-5, 3084-1, 99190-5 #### [facility] CLIA [id number] [address] [place] [address] [place] AST [Catalytic activity/Vol] 35 U/L Normal 14-40 [facility] Comment on above: Order Comment: Speci men Type: BLOOD SPECIMEN Ordering Facility: [facility] Address: [address] [place] [address] Performed By: #### 1 988-5, 308-1, 94561-1 #### [facility] CLIA [id number] [address] [place] [address] [place] Bilirubin [Mass/Vol] 0.7 mg/dL Normal 0.2-1.3 [facility] Comment on above: Order Comment: Speci men Type: BLOOD SPECIMEN Ordering Facility: [facility] Address: [address] [place] [address] Performed By: #### 1 988-5, 308-1, 80801-3 #### [facility] CLIA [id number] [address] [place] [address] [place] Calcium [Mass/Vol] 9.7 mg/dL Normal 8.5-10.2 [facility] Comment on above: Order Comment: Speci men Type: BLOOD SPECIMEN Ordering Facility: [facility] Address: [address] [place] [address] Performed By: #### 1 988-5, 3084-1, 03437-5 #### [facility] CLIA [id number] [address] [place], [place] [id number] [place] Chloride [Moles/Vol] 97 mmol/L Low 98-107 [facility] Comment on above: Order Comment: Speci men Type: BLOOD SPECIMEN Ordering Facility: [facility] Address: [address] [place] [address] Performed By: #### 1 988-5, 3084-1, 33793-6 #### [facility] CLIA [id number] [address] [place] [address] [place] CO2 [Moles/Vol] 24 mmol/L Normal 22-30 [facility] Comment on above: Order Comment: Speci men Type: BLOOD SPECIMEN Ordering Facility: [facility] Address: [address] [place] [address] Performed By: #### 1 988-5, 3084-1, 94474-1 #### [facility] CLIA [id number] [address] [place] [address] [place] Creatinine [Mass/Vol] 0.93 mg/dL Normal 0.73-1.22 [facility] Comment on above: Order Comment: Speci men Type: BLOOD SPECIMEN Ordering Facility: [facility] Address: [address] [place] [address] Performed By: #### 1 988-5, 3084-1, 02346-2 #### [facility] CLIA [id number] [address] [place] [address] [place] Creatinine and Glomerular filtration rate.predicted panel (S/P/Bld) 92 mL/min/1.73m??? Normal >=60 [facility] Comment on above: Order Comment: Speci men Type: BLOOD SPECIMEN Ordering Facility: [facility] Address: [address] [place] [address] Result Comment: Melvina mated Glomerular Filtration Rate (eGFR) is calculated using the 2020 CKD-EPI creatinine equation. This equation utilizes serum creatinine, sex, and age as parameters. The creatinine assay has traceable calibration to isotope dilution-mass spectrometry. Refer to KDIGO guidelines for clinical interpretation. In patients with unstable renal function, e.g. those with acute kidney injury, the eGFR may not accurately reflect actual GFR. Performed By: #### 1 988-5, 3083-04, #### [facility] CLIA [id number] [address] [address] [place] Glucose [Mass/Vol] 213 mg/dL High 74-99 [facility] Comment on above: Order Comment: Speci men Type: BLOOD SPECIMEN Ordering Facility: [facility] Address: [address] [place] [address] Result Comment: The [place] Diabetes Association (ADA) provides guidance for cutoff [...] Standards of Medical Care in Diabetes 2016, [place] Diabetes Association. Diabetes Care. 2016.39(Suppl 1). Performed By: #### 1 988-5, 3083-04, #### [facility] CLIA [id number] [address] [place] [address] [place] Potassium [Moles/Vol] 4.5 mmol/L Normal 3.7-5.1 [facility] Comment on above: Order Comment: Manjinderi men Type: BLOOD SPECIMEN Ordering Facility: [facility] Address: [address] [place] [address] Performed By: #### 1 988-5, 3083-04, #### [facility] CLIA [id number] [address] [address] [place] Protein [Mass/Vol] 7.1 g/dL Normal 6.3-8.0 [facility] Comment on above: Order Comment: Speci men Type: BLOOD SPECIMEN Ordering Facility: [facility] Address: [address] [place] [address] Performed By: #### 1 988-5, 3084-, #### [facility] CLIA [id number] [address] [place] [address] [place] Sodium [Moles/Vol] 135 mmol/L Low 136-144 [facility] Comment on above: Order Comment: Speci men Type: BLOOD SPECIMEN Ordering Facility: [facility] Address: [address] [place] [address] Performed By: #### 1 988-5, 3084-, #### [facility] CLIA [id number] [address] [place] [address] [place] Urea nitrogen [Mass/Vol] 20 mg/dL Normal 9-24 [facility] Comment on above: Order Comment: Speci men Type: BLOOD SPECIMEN Ordering Facility: [facility] Address: [address] [place] [address] Performed By: #### 1 988-5, 30807-08, #### [facility] CLIA [id number] [address] [place] [address] [place] ESR Westergren method (Bld) [Velocity]on 06-30-2024 ESR (Bld) [Velocity] 12 mm/h Normal 0-15 [facility] Comment on above: Order Comment: Speci men Type: BLOOD SPECIMEN Ordering Facility: [facility] Address: [address] [place] [address] Performed By: #### 5 8410-2, 4537-7 #### [facility] CLIA [id number] [address] [place] [address] [place] Erythrocyte distribution wid th Auto (RBC) [Ratio]on 06-30-2024 Erythrocyte distribution width (RBC) [Ratio] Erythrocyte distribution width [Ratio] by Automated count 11.5-15.0 [facility] Hematocrit Auto (Bld) [Volum e fraction]on 06-30-2024 Hematocrit (Bld) [Volume fraction] Hematocrit [Volume Fraction] of Blood by Automated count 39.0-51.0 [facility] Hemoglobin [Mass/volume] in Bloodon 06-30-2024 Hemoglobin (Bld) [Mass/Vol] Hemoglobin [Mass/volume] in Blood 13.0-17.0 [facility] Laboratory - Chemistry and C hemistry - challengeon 06-30-2024 Albumin [Mass/Vol] 4.1 g/dL 3.9-4.9 [facility] ALP [Catalytic activity/Vol] 67 U/L 38-113 [facility] ALT [Catalytic activity/Vol] 73 U/L High 10-54 [facility] AST [Catalytic activity/Vol] 35 U/L 14-40 [facility] Bilirubin [Mass/Vol] 0.7 mg/dL 0.2-1.[address] [facility] Calcium [Mass/Vol] 9.7 mg/dL 8.5-10.2 [facility] Chloride [Moles/Vol] 97 mmol/L Low 98-[address] [facility] CO2 [Moles/Vol] 24 mmol/L 22-30 [facility] Creatinine [Mass/Vol] 0.93 mg/dL 0.73-1.[address] [facility] Glucose [Mass/Vol] 213 mg/dL High 74-99 [facility] Comment on above: The [place] Diabete s Association (ADA) provides guidance for cutoff values for fasting glucose and random glucose. The ADA defines fasting as no caloric intake for at least 8 hours. Fasting plasma glucose results between 100 to 125 mg/dL indicate increased risk for diabetes (prediabetes).Fasting plasma glucose results greater than or equal to 126 mg/dL meet the criteria for diagnosis of diabetes. In the absence of unequivocal hyperglycemia, results should be confirmed by repeat testing. In a patient with classic symptoms of hyperglycemia or hyperglycemic crisis, random plasma glucose results greater than or equal to 200 mg/dL meet the criteria for diagnosis of diabetes.Reference: Standards of Medical Care in Diabetes 2016, [place] Diabetes Association. Diabetes Care. 2016.39(Suppl 1). Potassium [Moles/Vol] 4.5 mmol/L 3.7-5.[address] [facility] Sodium [Moles/Vol] 135 mmol/L Low 136-144 [facility] Urate [Mass/Vol] 6.4 mg/dL 4.0-8.1 [facility] Urea nitrogen [Mass/Vol] 20 mg/dL 9 [facility] Laboratory - Hematology and Cell countson 06-30-2024 ESR (Bld) [Velocity] 12 mm/h 0-[address] [facility] Leukocytes [#/volume] correc collins for nucleated erythrocytes in Blood by Automated counon 06-30-2024 WBC corrected for nucl RBC Auto (Bld) [#/Vol] Leukocytes [#/volume] corrected for nucleated erythrocytes in Blood by Automated coun High 3.70-11.00 [facility] MCH Auto (RBC) [Entitic mass ]on 06-30-2024 MCH (RBC) [Entitic mass] MCH [Entitic mass] by Automated count High 26.0-34.0 [facility] MCHC Auto (RBC) [Mass/Vol]on 06-30-2024 MCHC (RBC) [Mass/Vol] MCHC [Mass/volume] by Automated count 30.5-36.0 [facility] MCV Auto (RBC) [Entitic vol] on 06-30-2024 MCV (RBC) [Entitic vol] MCV [Entitic volume] by Automated count High 80.0-100.0 [facility] No Panel Informationon 06-30 25-Hydroxy Vitamin D Total 19.2 ng/mL Low 31.0-80.0 [facility] Comment on above: Classification of 25 [place] Vitamin D status: Deficiency/Insufficiency: < or = 30 ng/ml.Sufficiency/Optimal Levels: 31-80 ng/mLToxicity: > 100 ng/mL. Test performed by chemiluminescent immunoassay. C-Reactive Protein, Quantitative 0.6 mg/dL <0.9 [facility] Estimated GFR (CKD-EPI) 92 mL/min/1.73m??? >=60 [facility] Comment on above: Estimated Glomerular Filtration Rate (eGFR) is calculated using the 2021 CKD-EPI creatinine equation. This equation utilizes serum creatinine, sex, and age as parameters. The creatinine assay has traceable calibration to isotope dilution-mass spectrometry. Refer to KDIGO guidelines for clinical interpretation. In patients with unstable renal function, e.g. those with acute kidney injury, the eGFR may not accurately reflect actual GFR. Nucleated RBC Auto (Bld) [#/ Vol]on 06-30-2024 Nucleated RBC (Bld) [#/Vol] Nucleated erythrocytes [#/volume] in Blood by Automated count <0.01 [facility] Platelet mean volume Auto (B ld) [Entitic vol]on 06-30-2024 Platelet mean volume (Bld) [Entitic vol] Platelet mean volume [Entitic volume] in Blood by Automated count 9.0-12.7 [facility] Platelets Auto (Bld) [#/Vol] on 06-30-2024 Platelets (Bld) [#/Vol] Platelets [#/volume] in Blood by Automated count 150-400 [facility] Protein [Mass/volume] in Ser um or Plasmaon 06-30-2024 Protein [Mass/Vol] Protein [Mass/volume ] in Serum or Plasma 6.3-8.0 [facility] RBC Auto (Bld) [#/Vol]on RBC (Bld) [#/Vol] Erythrocytes [#/volu me] in Blood by Automated count 4.20-6.00 [facility] Serum or plasma anion gap de terminationon 06-30-2024 Anion gap [Moles/Vol] Serum or plasma an ion gap determination 8-15 [facility] Urate SerPl-mCncon Urate [Mass/Vol] 6.4 mg/dL Normal 4.0-8.1 [facility] Comment on above: Order Comment: Speci men Type: BLOOD SPECIMEN Ordering Facility: [facility] Address: [address] [place] [address] Performed By: #### 1 988-5, 3084-1, 83483-6 #### [facility] CLIA [id number] [address] [place] [address] [place] [address] [place] WATCHMAN FULL CONTRASTon 06-13-2024 CT WATCHMAN FULL CONTRAST Interpreted By: Marcial oByd, ADDENDUM: Technical: The following is to serve as an over-read for a contrast-enhanced cardiac CT, to evaluate the extravascular structures. Contiguous axial CT sections are performed from the level of the kevin to the upper abdomen following the bolus administration of 70 cc of intravenous Omnipaque 350. Findings: The visualized portions of both lungs are clear. There is no sign of pathologic lymph node enlargement. There is no pericardial or pleural effusion. Images through the upper abdomen are unremarkable aside from fatty metamorphosis of the liver. The visualized osseous and soft tissue structures of the chest wall are intact. Impression: Fatty metamorphosis of the liver. The remaining extravascular structures have an unremarkable CT appearance. Signed by: Marcial Boyd 06/15/2024 9:24 PM -------- ORIGINAL REPORT -------- Dictation workstation: [id number] Interpreted By: Marcial Barreto, STUDY: CT WATCHMAN FULL CONTRAST; 06/13/2024 2:23 pm INDICATION: Signs/Symptoms:A-fib, Post Watchman. COMPARISON: None. ACCESSION NUMBER(S): [id number] ORDERING CLINICIAN: BIRD KOWALSKI TECHNIQUE: Using multidetector CT technology, Alfredo CT 64-slice scanner, axial, sequential imaging with retrospective gating and minimal slice thickness was performed of the chest following the intravenous administration of contrast material. A low-osmolar contrast agent was used 70 mL of Omnipaque 350. Also, the imaging was repeated after 30 sec delay as per watchman protocol. Also, patient received 500 mL of normal saline prior to exam as per protocol. For optimization of anatomic evaluation, multiplanar reconstruction, maximum intensity projections, and advanced 3-D off-line postprocessing were performed on a dedicated stand-alone workstation under the direct supervision of the interpreting physician. CT Dose-Length Product (DLP): 1125 mGy/cm CT Dose Reduction Employed: Yes Prospective triggering, iterative reconstruction FINDINGS: LEFT ATRIAL APPENDAGE: Well seated left atrial appendage closure device without Ashia device leak. There is thrombus and contrast within the left atrial appendage closure device. There is thrombus and contrast in the distal left atrial appendage. There is contrast along the inferior side of closure device measuring 50% depth of closure device. There is no evidence of thrombus on the external surface/left atrial aspect of closure device. CORONARY ARTERIES: The study was not tailored for the evaluation of coronary arteries. There is normal origin of the coronary arteries. Coronary anatomy is right dominant. Diffuse coronary artery calcification. Coronary artery stents. Coronary artery bypass graft anatomy: Incomplete visualization to determine degree of bypass graft stenosis. Patent RIVAS-LAD Patent saphenous graft-diagonal branch. Patent saphenous graft-obtuse marginal branch. Patent saphenous graft-RCA. CARDIAC CHAMBERS: The cardiac chambers demonstrate normal atrioventricular and ventriculoarterial concordance, and systemic and pulmonary venous return. LEFT ATRIUM: Dilated 4.8 cm. RIGHT ATRIUM: Normal size INTERATRIAL SEPTUM: Intact. LEFT VENTRICLE: Normal size RIGHT VENTRICLE: Normal size AORTIC VALVE: The aortic valve is calcified trileaflet in morphology. MITRAL VALVE: Mitral annular calcification THORACIC AORTA: Aortic root aneurysm 4.3 cm. PERICARDIUM: There is no pericardial effusion of thickening. IMPRESSION: 1. Well seated left atrial appendage closure device without Ashia device leak. 2. No evidence of thrombus on the external surface/left atrial aspect of closure device. Reading Inspector Water Pollution Control: Dr. Marcial Barreto, Date: 06/15/2024 2:13 pm Signed by: Marcial Barreto 06/15/2024 2:17 PM Dictation workstation: [id number] [facility] Albumin [Mass/volume] in Ser um or Plasma by Bromocresol green (BCG) dye binding methoOrdered By: Bird Kowalski on 05-29-2024 Albumin BCG dye [Mass/Vol] Albumin [Mass/volume] in Serum or Plasma by Bromocresol green (BCG) dye binding metho 3.5-5.7 [facility] Calcium [Mass/volume] in Ser um or PlasmaOrdered By: Bird Kowalski on 05-29-2024 Calcium [Mass/Vol] Calcium [Mass/volume ] in Serum or Plasma 8.6-10.3 [facility] Carbon dioxide, total [Moles /volume] in Serum or PlasmaOrdered By: Bird Kowalski on 05-29-2024 CO2 [Moles/Vol] Carbon dioxide, tota l [Moles/volume] in Serum or Plasma 21.0-31.0 [facility] Chloride [Moles/volume] in S ursula or PlasmaOrdered By: Bird Kowalski on 05-29-2024 Chloride [Moles/Vol] Chloride [Moles/vol ume] in Serum or Plasma 98-107 [facility] Creatinine [Mass/volume] in Serum or PlasmaOrdered By: Bird Kowalski on 05-29-2024 Creatinine [Mass/Vol] Creatinine [Mass/v olume] in Serum or Plasma 0.70-1.30 [facility] Glucose [Mass/volume] in Ser um or PlasmaOrdered By: Bird Kowalski on 05-29-2024 Glucose [Mass/Vol] Glucose [Mass/volume ] in Serum or Plasma High 70-100 [facility] Comment on above: ADA recommended refe rence rangeRandom Glucose Reference Range is dependent on time and content of last meal. Glucose of more than 200 mg/dL in a nonstressed, ambulatory subject supports the diagnosis of Diabetes Mellitus. No Panel InformationOrdered By: Bird Kowalski on 05-29-2024 Estimated GFR (CKD-EPI) > 60.0 mL/Min [facility] Creatinine Clearance (Chem N/A [facility] Phosphate [Mass/volume] in S ursula or PlasmaOrdered By: Bird Kowalski on 05-29-2024 Phosphate [Mass/Vol] Phosphate [Mass/vol ume] in Serum or Plasma 2.5-4.5 [facility] Potassium [Moles/volume] in Serum or PlasmaOrdered By: Bird Kowalski on 05-29-2024 Potassium [Moles/Vol] Potassium [Moles/v olume] in Serum or Plasma 3.5-5.1 [facility] Renal Function Panelon 05-29 Albumin [Mass/Vol] 4.1 g/dL Normal 3.5-5.7 [facility] Comment on above: Result Comment: PERF ORMED BY: [facility] [address] [place] [address] PATHOLOGIST TRAIN DIRECTOR OSCAR HAY M.D. Performed By: #### H S TROP #### [address] Anion gap [Moles/Vol] 11.9 mmol/L Normal 6.0-15.0 [facility] Comment on above: Performed By: #### H S TROP #### [facility] [address] Calcium [Mass/Vol] 9.1 mg/dL Normal 8.6-10.3 The [facility] Comment on above: Performed By: #### H S TROP #### [facility] [address] [place] [address] [place] Chloride [Moles/Vol] 102 mmol/L Normal 98-107 [facility] Comment on above: Performed By: #### H S TROP #### [facility] [address] [place] [id number] [facility] CO2 [Moles/Vol] 27.4 mmol/L Normal 21.0-31.0 [facility] Comment on above: Performed By: #### H S TROP #### [address] Creatinine [Mass/Vol] 0.91 mg/dL Normal 0.70-1.30 [facility] Comment on above: Performed By: #### H S TROP #### [place] [address] [place] GFR/1.73 sq M.predicted MDRD (S/P/Bld) [Vol rate/Area] mL/min/{1.73_m2} Normal [facility] Comment on above: Performed By: #### H S TROP #### [place] [address] [place] Glucose [Mass/Vol] 169 mg/dL High 70-100 [facility] Comment on above: Result Comment: [place] Glucose Reference Range is dependent on time and content of last meal. Glucose of more than 200 mg/dL in a nonstressed, ambulatory subject supports the diagnosis of Diabetes Mellitus. ADA recommended reference range Performed By: #### H S TROP #### [address] Phosphate [Mass/Vol] 3.9 mg/dL Normal 2.5-4.5 [facility] Comment on above: Performed By: #### H S TROP #### [facility] [address] Potassium [Moles/Vol] 4.3 mmol/L Normal 3.5-5.1 [facility] Comment on above: Performed By: #### H S TROP #### [facility] [address] Sodium [Moles/Vol] 137 mmol/L Normal 136-145 The [facility] Comment on above: Performed By: #### H S TROP #### [facility] [address] Urea nitrogen [Mass/Vol] 24 mg/dL Normal 7-25 [facility] Comment on above: Performed By: #### H S TROP #### [facility] [address] Serum or plasma anion gap de terminationOrdered By: Bird Kowalski on 05-29-2024 Anion gap [Moles/Vol] Serum or plasma an ion gap determination 6.0-15.0 [facility] Sodium [Moles/volume] in Ser um or PlasmaOrdered By: Bird Kowalski on 05-29-2024 Sodium [Moles/Vol] Sodium [Moles/volume ] in Serum or Plasma 136-145 [facility] Urea nitrogen [Mass/volume] in Serum or PlasmaOrdered By: Bird Kowalski on 05-29-2024 Urea nitrogen [Mass/Vol] Urea nitrogen [Mass/volume] in Serum or Plasma 7-25 [facility] Activated clotting timeon ACT Coag (Bld) 277 s High 89-169 [facility] Comment on above: Result Comment: Targ et ACT range will vary based on the patient population, clinical status, and surgical intervention occurring. Performed By: #### 3 184-9 #### RAPHAEL Blanco ([id number]) [facility] ([facility]) [address] [id number] Basic metabolic 2000 panelon 01-29-2024 Anion gap [Moles/Vol] 13 mmol/L 10 - 2 0 mmol/L [facility] Calcium [Mass/Vol] 9.1 mg/dL 8.6 - 10. 6 mg/dL [facility] Chloride [Moles/Vol] 100 mmol/L 98 - 10 7 mmol/L [facility] CO2 [Moles/Vol] 26 mmol/L 21 - 32 mmol/L [facility] Creatinine [Mass/Vol] 1.02 mg/dL 0.50 - 1.30 mg/dL [facility] GFR/1.73 sq M.predicted among non-blacks MDRD (S/P/Bld) [Vol rate/Area] 82 mL/min/{1.73_m2} - PINF [facility] Comment on above: Calculations of melvina mated GFR are performed using the 2020 CKD-EPI Study Refit equation without the race variable for the IDMS-Traceable creatinine methods. https://jasn.asnjournals.org/content//ASN.22848 00570 Glucose [Mass/Vol] 142 mg/dL High 74 - 99 mg/dL [facility] Potassium [Moles/Vol] 3.7 mmol/L 3.5 - 5.3 mmol/L [facility] Sodium [Moles/Vol] 135 mmol/L Low 136 - 145 mmol/L [facility] Urea nitrogen [Mass/Vol] 18 mg/dL 6 - 23 mg/dL [facility] Anion gap [Moles/Vol] 13 mmol/L Normal 10-20 [facility] Comment on above: Performed By: #### 2 4321-2 #### RAPHAEL Blanco ([id number]) [facility] ([facility]) [address] [place] [address] Calcium [Mass/Vol] 9.1 mg/dL Normal 8.6-10.6 [facility] Comment on above: Performed By: #### 2 4321-2 #### RAPHAEL Blanco ([id number]) [facility] ([facility]) [address] [place] [address] Chloride [Moles/Vol] 100 mmol/L Normal 98-107 [facility] Comment on above: Performed By: #### 2 4321-2 #### RAPHAEL Blanco ([id number]) [facility] ([facility]) [address] [place] [address] CO2 [Moles/Vol] 26 mmol/L Normal 21-32 [facility] Comment on above: Performed By: #### 2 4321-2 #### RAPHAEL Blanco ([id number]) [facility]) [address] [place] [address] Creatinine [Mass/Vol] 1.02 mg/dL Normal 0.50-1.30 [facility] Comment on above: Performed By: #### 2 4321-2 #### RAPHAEL Blanco ([id number]) [facility] ([facility]) [address] [place] [address]457 Glomerular filtration rate/1.73 sq M.predicted 82 mL/min/1.73m*2 Normal >60 [facility] Comment on above: Result Comment: Calc ulations of estimated GFR are performed using the 2020 CKD-EPI Study Refit equation without the race variable for the IDMS-Traceable creatinine methods. https://jasn.asnjournals.org/content//ASN.33267 20109 Performed By: #### 2 4321-2 #### RAPHAEL Blanco ([id number]) [facility] ([facility]) [address] [place] [address] 70916 Glucose [Mass/Vol] 142 mg/dL High 74-99 [facility] Comment on above: Performed By: #### 2 4321-2 #### RAPHAEL Blanco ([id number]) [facility] ([facility]) [address] [place] [address] 95245 Potassium [Moles/Vol] 3.7 mmol/L Normal 3.5-5.3 [facility] Comment on above: Performed By: #### 2 4321-2 #### RAPHAEL Blanco ([id number]) [facility] ([facility]) [address] [place] [address]321 Sodium [Moles/Vol] 135 mmol/L Low 136-145 [facility] Comment on above: Performed By: #### 2 4321-2 #### RAPHAEL Blanco ([id number]) [facility] ([facility]) [address] [place] [address] 59587 Urea nitrogen [Mass/Vol] 18 mg/dL Normal 6-23 [facility] Comment on above: Performed By: #### 2 4321-2 #### RAPHAEL Blanco ([id number]) [facility] ([facility]) [address] [place] [address] 27230 Blood type and Indirect anti body screen panel (Bld)on 01-29-2024 ABO group Nom (Bld) A [facility] Blood group antibody screen Ql Negative [facility] D Ag Ql (Bld) Positive [facility] Comment on above: 2nd ABO test require d. Order and Collect VERAB [facility] ABO group Nom (Bld) A Normal [facility] Comment on above: Performed By: #### 3 4532-2 #### RAPHAEL Blanco ([id number]) [facility] ([facility]) [address] [place] [address] 75869 Blood group antibody screen Ql Negative [facility] Comment on above: Performed By: #### 3 4532-2 #### RAPHAEL Blanco ([id number]) [facility] ([facility]) [address] [place] [address] 70367 D Ag Ql (Bld) Positive [facility] Comment on above: Result Comment: 2nd ABO test required. Order and Collect VERAB Performed By: #### 3 4532-2 #### RAPHAEL Blanco ([id number]) [facility] ([facility]) [address] [place] [address] 10360 CARDIAC CATHETERIZATION PROC EDUREon 01-29-2024 CARDIAC CATHETERIZATION PROCEDURE [facility], [employer], [address] [place] [address] Cardiovascular Catheterization Report Patient Name: ESME STEVEN Performing Physician: [id number] Bird Kowalski MD Study Date: 01/29/2024 Verifying Physician: [id number] Kowalski MD MRN/PID: [id number] Inspector Water Pollution Control/Co-Scrub: Ordering Provider: [id number] BIRD KOWALSKI Date of /Age: 9 1960 / 63 years Inspector Water Pollution Control: Gender: M Fellow: Bruno Almaguer MD Surgeon: [...] trans-septal puncture was with a versa cross (Hoverink), accessing the left atrium. The trans septal tract was then dilated with a Watchman FXD access sheath and the ICE probe was advanced through the dilated tract into the left atrium. Next, a 6 Occitan angled pigtail was advanced through the delivery [...] CPT Codes: Perc left atrial appendage closure (LAAC)-08658 [id number] Bird Kowalski MD Performing Physician Final Normal [facility] CBC W Auto Differential pane l (Bld)on 01-29-2024 Basophils (Bld) [#/Vol] 0.04 10*3/uL [facility] Basophils/100 WBC (Bld) 0.4 % 0.0 - 2.0 % [facility] Eosinophils (Bld) [#/Vol] 0.02 10*3/uL [facility] Eosinophils/100 WBC (Bld) 0.2 % 0.0 - 6.0 % [facility] Erythrocyte distribution width (RBC) [Ratio] 11.8 % 11.5 - 14.5 % [facility] Hematocrit (Bld) [Volume fraction] 45.3 % 41.0 - 52.0 % [facility] Hemoglobin (Bld) [Mass/Vol] 15.6 g/dL 13.5 - 17.5 g/dL [facility] Immature granulocytes (Bld) [#/Vol] 0.09 10*3/uL [facility] Immature granulocytes/100 WBC (Bld) 0.9 % 0.0 - 0.9 % [facility] Comment on above: Immature Granulocyte Count (IG) includes promyelocytes, myelocytes and metamyelocytes but does not include bands. Percent differential counts (%) should be interpreted in the context of the absolute cell counts (cells/UL). Interpretation and review of laboratory results Abnormal [facility] Lymphocytes (Bld) [#/Vol] 1.14 10*3/uL Low [facility] Lymphocytes/100 WBC (Bld) 11 % 13.0 - 44.0 % [facility] MCH (RBC) [Entitic mass] 35.9 pg High 26.0 - 34.0 pg [facility] MCHC (RBC) [Mass/Vol] 34.4 g/dL 32.0 - 36.0 g/dL [facility] MCV (RBC) [Entitic vol] 104 fL High 80 - 100 fL [facility] Monocytes (Bld) [#/Vol] 0.74 10*3/uL [facility] Monocytes/100 WBC (Bld) 7.1 % 2.0 - 10.0 % [facility] Neutrophils (Bld) [#/Vol] 8.36 10*3/uL High [facility] Comment on above: Percent differential counts (%) should be interpreted in the context of the absolute cell counts (cells/uL). Neutrophils/100 WBC (Bld) 80.4 % 40.0 - 80.0 % [facility] Nucleated RBC/100 WBC (Bld) [Ratio] 0 % [facility] Platelets (Bld) [#/Vol] 143 10*3/uL Low [facility] RBC (Bld) [#/Vol] 4.35 10*6/uL Low [facility] WBC (Bld) [#/Vol] 10.4 10*3/uL [facility] Basophils (Bld) [#/Vol] 0.04 x10*3/uL Normal 0.00-0.10 [facility] Comment on above: Performed By: #### 5 7021-8 #### RAPHAEL Blanco ([id number]) [facility]) [address] [place] [address] 66199 Basophils/100 WBC (Bld) 0.4 % Normal 0.0-2.0 [facility] Comment on above: Performed By: #### 5 7021-8 #### RAPHAEL Blanco ([id number]) [facility] ([facility]) [address] [place] [address] 84489 Eosinophils (Bld) [#/Vol] 0.02 x10*3/uL Normal 0.00-0.70 [facility] Comment on above: Performed By: #### 5 7021-8 #### RAPHAEL Blanco ([id number]) [facility] ([facility]) [address] [place] [address] 51791 Eosinophils/100 WBC (Bld) 0.2 % Normal 0.0-6.0 [facility] Comment on above: Performed By: #### 5 7021-8 #### RAPHAEL Blanco ([id number]) [facility]) [address] [place] [address] 29938 Erythrocyte distribution width (RBC) [Ratio] 11.8 % Normal 11.5-14.5 [facility] Comment on above: Performed By: #### 5 7021-8 #### RAPHAEL QUINTERO L ([id number]) [facility] ([facility]) [address] [place] [address] 76325 Hematocrit (Bld) [Volume fraction] 45.3 % Normal 41.0-52.0 [facility] Comment on above: Performed By: #### 5 7021-8 #### RAPHAEL QUINTERO L ([id number]) [facility] ([facility]) [address] [place] [address] 73063 Hemoglobin (Bld) [Mass/Vol] 15.6 g/dL Normal 13.5-17.5 [facility] Comment on above: Performed By: #### 5 7021-8 #### RAPHAEL QUINTERO L ([id number]) [facility] ([facility]) [address] [place] [address] 24267 Immature granulocytes (Bld) [#/Vol] 0.09 x10*3/uL Normal 0.00-0.70 [facility] Comment on above: Performed By: #### 5 7021-8 #### RAPHAEL QUINTERO L ([id number]) [facility] ([facility]) [address] [place] [address] 71359 Immature granulocytes/100 WBC (Bld) 0.9 % Normal 0.0-0.9 [facility] Comment on above: Result Comment: Paulina ture Granulocyte Count (IG) includes promyelocytes, myelocytes and metamyelocytes but does not include bands. Percent differential counts (%) should be interpreted in the context of the absolute cell counts (cells/UL). Performed By: #### 5 7021-8 #### RAPHAEL GUILLERMOMOTZRASHARD L ([id number]) [facility] ([facility]) [address] [place] [address] 69544 Lymphocytes (Bld) [#/Vol] 1.14 x10*3/uL Low 1.20-4.80 [facility] Comment on above: Performed By: #### 5 7021-8 #### RAPHAEL Blanco ([id number]) [facility] ([facility]) [address] [place] [address] 88043 Lymphocytes/100 WBC (Bld) 11.0 % Normal 13.0-44.0 [facility] Comment on above: Performed By: #### 5 7021-8 #### RAPHAEL Blanco ([id number]) [facility]) [address] [place] [address] 13792 MCH (RBC) [Entitic mass] 35.9 pg High 26.0-34.0 [facility] Comment on above: Performed By: #### 5 7021-8 #### RAPHAEL Blanco ([id number]) [facility]) [address] [place] [address] 75571 MCHC (RBC) [Mass/Vol] 34.4 g/dL Normal 32.0-36.0 [facility] Comment on above: Performed By: #### 5 7021-8 #### RAPHAEL Blanco ([id number]) [facility]) [address] [place] [address] 09985 MCV (RBC) [Entitic vol] 104 fL High 80-100 [facility] Comment on above: Performed By: #### 5 7021-8 #### RAPHAEL Blanco ([id number]) [facility] ([facility]) [address] [place] [address] 76646 Monocytes (Bld) [#/Vol] 0.74 x10*3/uL Normal 0.10-1.00 [facility] Comment on above: Performed By: #### 5 7021-8 #### RAPHAEL Blanco ([id number]) [facility] ([facility]) [address] [place] [address] 10096 Monocytes/100 WBC (Bld) 7.1 % Normal 2.0-10.0 [facility] Comment on above: Performed By: #### 5 7021-8 #### RAPHAEL Blanco ([id number]) [facility]) [address] [place] [address] 27887 Neutrophils (Bld) [#/Vol] 8.36 x10*3/uL High 1.20-7.70 [facility] Comment on above: Result Comment: Perc ent differential counts (%) should be interpreted in the context of the absolute cell counts (cells/uL). Performed By: #### 5 7021-8 #### RAPHAEL Blanco ([id number]) [facility] ([facility]) [address] [place] [address] 55054 Neutrophils/100 WBC (Bld) 80.4 % Normal 40.0-80.0 [facility] Comment on above: Performed By: #### 5 7021-8 #### RAPHAEL QUINTERO L ([id number]) [facility] ([facility]) [address] [place] [address] 01267 Nucleated RBC/100 WBC (Bld) [Ratio] 0.0 /100 WBCs Normal 0.0-0.0 [facility] Comment on above: Performed By: #### 5 7021-8 #### RAPHAEL QUINTERO L ([id number]) [facility]) [address] [place] [address] 37443 Platelets (Bld) [#/Vol] 143 x10*3/uL Low 150-450 [facility] Comment on above: Performed By: #### 5 7021-8 #### RAPHAEL GUILLERMOMOTZRASHARD L ([id number]) [facility]) [address] [place] [address] 09241 RBC (Bld) [#/Vol] 4.35 x10*6/uL Low 4.50-5.90 [facility] Comment on above: Performed By: #### 5 7021-8 #### RAPHAEL GUILLERMOMOTZRASHARD L ([id number]) [facility]) [address] [place] [address] 49650 WBC (Bld) [#/Vol] 10.4 x10*3/uL Normal 4.4-11.3 [facility] Comment on above: Performed By: #### 5 7021-8 #### RAPHAEL Blanco ([id number]) [facility]) [address] [place] [address] CT WATCHMAN FULL CONTRASTon 01-29-2024 CT WATCHMAN FULL CONTRAST Interpreted By: Alonzo Holbrook, STUDY: CT WATCHMAN FULL CONTRAST; 01/29/2024 9:29 am INDICATION: Signs/Symptoms:A-fib, Pre-Watchman, MARIO Sizing, R/O MARIO Thrombus. ,I48.91 Unspecified atrial fibrillation (Multi) COMPARISON: None. ACCESSION NUMBER(S): [id number] ORDERING CLINICIAN: BIRD KOWALSKI TECHNIQUE: Using multi-detector [...] Alonzo Holbrook 01/29/2024 10:03 AM Dictation workstation: [id number] [facility] Comment on above: Order Comment: Lida l EF - 750mL water PO over 3 hours pre scan and 250mL post scan. Encourage adequate PO intake post. CT watchman full contraston 01-29-2024 1. No evidence of le ft atrial/left atrial appendage thrombus. 2. The left [...] Alonzo Holbrook 01/29/2024 10:03 AM Dictation workstation: [id number] Interpreted By: Alonzo Castellon, STUDY: CT WATCHMAN FULL CONTRAST; 01/29/2024 9:29 am INDICATION: Signs/Symptoms:A-fib, Pre-Watchman, MARIO Sizing, R/O MARIO Thrombus. ,I48.91 Unspecified atrial fibrillation (Multi) COMPARISON: None. ACCESSION NUMBER(S): [id number] ORDERING CLINICIAN: BIRD KOWALSKI TECHNIQUE: Using multi-detector [...] no suspicious osseous lesions within included chest. Alonzo Hernandez MD - 01/29/2024 Interpreted By: Alonzo Holbrook, STUDY: CT WATCHMAN FULL CONTRAST; 01/29/2024 9:29 am INDICATION: Signs/Symptoms:A-fib, Pre-Watchman, MARIO Sizing, R/O MARIO Thrombus. ,I48.91 Unspecified atrial fibrillation (Multi) COMPARISON: None. ACCESSION NUMBER(S): [id number] ORDERING CLINICIAN: BIRD KOWALSKI TECHNIQUE: Using multi-detector [...] Alonzo Holbrook 01/29/2024 10:03 AM Dictation workstation: [id number] [facility] Work Phone: Radiology Study observation (narrative) [facility] Work Phone: CT watchman full contrastOrd ered By: Alonzo Holbrook on 01-29-2024 [facility] Work Phone: Coagulation tissue factor in ducedon 01-29-2024 PT Coag (PPP) [Time] 11.0 s Normal 9.8-12.8 [facility] Comment on above: Performed By: #### 5 902-2 #### RAPHAEL Blanco ([id number]) [facility] [address] [place] [address] ECG 12 leadOrdered By: Aniceto Burk on 01-29-2024 Atrial Rate 71 BPM [facility] Work Phone: [phone] P [place] 20 degrees [facility] Work Phone: [phone] P Offset 191 ms [facility] Work Phone: [phone] P Onset 126 ms [facility] Work Phone: [phone] Interval 198 ms [facility] Work Phone: [phone] Q Onset 225 ms [facility] Work Phone: [phone] QRS Count 12 beats [facility] Work Phone: [phone] QRS Duration 114 ms [facility] Work Phone: [phone] QT Interval 430 ms [facility] Work Phone: [phone] QTC Calculation(Bazett) 467 ms [facility] Work Phone: [phone] QTC Fredericia 455 ms [facility] Work Phone: [phone] R [place] -10 degrees [facility] Work Phone: [phone] T [place] 114 degrees [facility] Work Phone: [phone] T Offset 440 ms [facility] Work Phone: [phone] Ventricular Rate 71 BPM [facility] Work Phone: [phone] [facility] Work Phone: [phone] ECG 12 leadon 01-29-2024 Sinus rhythm with occasional Premature ventricular complexes Inferior infarct , age undetermined Abnormal ECG No previous ECGs available Confirmed by Adrien Burk ([id number]) on 01/29/2024 4:23:52 PM MUSE Adrien Burk MD - 01/29/2024 Sinus rhythm with occasional Premature ventricular complexes Inferior infarct , age undetermined Abnormal ECG No previous ECGs available Confirmed by Adrien Burk ([id number]) on 01/29/2024 4:23:52 PM [facility] Work Phone: ECG 12-LEADon 01-29-2024 ECG 12-LEAD Ventricular Rate 71 Atrial Rate 71 P-R Interval 198 QRS Duration 114 Q-T Interval 430 QTC Calculation(Bazett) 467 P [place] 20 R [place] -10 T [place] 114 QRS Count 12 Q Onset 225 P Onset 126 P Offset 191 T Offset 440 QTC Fredericia 455 Diagnosis Sinus rhythm with occasional Premature ventricular complexes Inferior infarct , age undetermined Abnormal ECG No previous ECGs available Confirmed by Adrien Burk ([id number]) on 01/29/2024 4:23:52 PM Normal [facility] Magnesiumon 01-29-2024 Magnesium [Mass/Vol] 1.43 mg/dL Low 1.60 - 2.40 mg/dL [facility] Magnesium [Mass/Vol] 1.43 mg/dL Low 1.60-2.40 [facility] Comment on above: Performed By: #### 1 9123-9 #### RAPHAEL Blanco ([id number]) [facility] [address] [place] [address] No Panel Informationon 01-28 Interpretation and review of laboratory results Abnormal [facility] PT Coag (PPP) [Time]on 01-28 INR Coag (PPP) [Relative time] 1 {INR} 0.9 - 1.1 [facility] Interpretation and review of laboratory results Normal [facility] INR Coag (PPP) [Relative time] 1.0 Normal 0.9-1.1 [facility] Comment on above: Performed By: #### 5 902-2 #### RAPHAEL Blanco ([id number]) [facility] [address] [place] [address] Protime-INRon 01-29-2024 PT Coag (PPP) [Time] 11 s [facility] TRANSTHORACIC ECHO (TTE) RAMOS ITEDon 01-29-2024 TRANSTHORACIC ECHO (TTE) LIMITED [facility], [address] [address] and TRANSTHORACIC ECHOCARDIOGRAM REPORT Patient Name: ESME STEVEN Reading Physician: [id number] Haris Beverly MD Study Date: 01/29/2024 Ordering Provider: [id number] SAMMI LOREDO MRN/PID: [id number] Fellow: Nurse: Date of /Age: 9 1960 / 63 years Program Manager: Tanisha VASQUEZ Gender: M Additional Staff: Height: 177.00 cm Admit Date: 01/29/2024 Weight: 110.68 kg Admission Status: Inpatient - Routine BSA / BMI: 2.26 m2 / 35.33 kg/m2 Blood Pressure: 138/84 mmHg Department Location: [facility] [employer] Study Type: TRANSTHORACIC ECHO (TTE) LIMITED Diagnosis/ICD: Presence of other cardiac implants and grafts-Z95.818 Indication: Post LAAO CPT Code: Echo Limited-94921 Patient History: Pertinent History: A-Fib, CAD, Hyperlipidemia [...] machine learning algorithm (EchoGo Heart Failure by [employer]), the analysis of the apical 4-chamber echocardiogram [...] 53 % LV EF Reported: 53 % [id number] Haris Beverly MD Electronically signed on 01/29/2024 at 3:36:47 PM Final Normal [facility] TRANSTHORACIC ECHO (TTE) LIMITED [facility], [address] [place] [address] and TRANSTHORACIC ECHOCARDIOGRAM REPORT Patient Name: ESME Fischer Physician: [id number] Savana Williamson MD Study Date: 01/29/2024 Ordering Provider: [id number] SAMMI LOREDO MRN/PID: [id number] Fellow: Nurse: Date of /Age: 9 1960 / 63 years Program Manager: Angela Tran [facility] Gender: M Additional Staff: Height: 177.80 cm Admit Date: Weight: 110.68 kg Admission Status: Inpatient - Routine BSA / BMI: 2.27 m2 / 35.01 kg/m2 Blood Pressure: 121/71 mmHg Department Location: [facility] [employer] Study Type: TRANSTHORACIC ECHO (TTE) LIMITED Diagnosis/ICD: Encounter for other preprocedural examination-Z01.818 Indication: Pre LAAO CPT Code: Echo Limited-58403 Patient History: Pertinent History: Persistent afib, ICM, [...] however appears to have an inferior/inferolateral wall [id number] abnormality. Left Atrium: The left atrium is [...] however appears to have an inferior/inferolateral wall [id number] abnormality. 4. The left atrium is enlarged. 5. There is moderate mitral annular calcification. 6. Limited TTE pre LAAO closure device placement. 7. No prior echocardiogram available for comparison. QUANTITATIVE DATA SUMMARY: AORTA MEASUREMENTS: Normal Ranges: Ao Sinus, d: 4.30 cm (2.1-3.5cm) [id number] Savana Williamson MD Electronically signed on 01/29/2024 at 3:21:38 PM Final Normal [facility] TransthoracicOrdere d By: Haris Beverly on 01-29-2024 LV EF 53 % [facility] Work Phone: [facility] Work Phone: Heart Transthoracicon [facility], [address] [place] [address] and TRANSTHORACIC ECHOCARDIOGRAM REPORT Patient Name: ESME YAMILEX Reading Physician: [id number] Haris Beverly MD Study Date: 01/29/2024 Ordering Provider: [id number] SAMMI LOREDO MRN/PID: [id number] Fellow: Nurse: Date of /Age: 9 1960 / 63 years Program Manager: Tanisha VASQUEZ Gender: M Additional Staff: Height: 177.00 cm Admit Date: 01/29/2024 Weight: 110.68 kg Admission Status: Inpatient - Routine BSA / BMI: 2.26 m2 / 35.33 kg/m2 Blood Pressure: 138/84 mmHg Department Location: [facility] [employer] Study Type: TRANSTHORACIC ECHO (TTE) LIMITED Diagnosis/ICD: Presence of other cardiac implants and grafts-Z95.818 Indication: Post LAAO CPT Code: Echo Limited-49112 Patient History: Pertinent History: A-Fib, CAD, Hyperlipidemia [...] machine learning algorithm (EchoGo Heart Failure by [employer]), the analysis of the apical 4-chamber echocardiogram [...] 53 % LV EF Reported: 53 % [id number] Haris Beverly MD Electronically signed on 01/29/2024 at 3:36:47 PM Final Haris Serna MD - 01/29/2024 [facility], [address] [place] [address] and TRANSTHORACIC ECHOCARDIOGRAM REPORT Patient Name: ESME STEVEN Reading Physician: [id number] Haris Beverly MD Study Date: 01/29/2024 Ordering Provider: [id number] SAMMI LOREDO MRN/PID: [id number] Fellow: Nurse: Date of /Age: 9 1960 / 63 years Program Manager: Tanisha VASQUEZ Gender: M Additional Staff: Height: 177.00 cm Admit Date: 01/29/2024 Weight: 110.68 kg Admission Status: Inpatient - Routine BSA / BMI: 2.26 m2 / 35.33 kg/m2 Blood Pressure: 138/84 mmHg Department Location: [facility] [employer] Study Type: TRANSTHORACIC ECHO (TTE) LIMITED Diagnosis/ICD: Presence of other cardiac implants and grafts-Z95.818 Indication: Post LAAO CPT Code: Echo Limited-28079 Patient History: Pertinent History: A-Fib, CAD, Hyperlipidemia [...] machine learning algorithm (EchoGo Heart Failure by [employer]), the analysis of the apical 4-chamber echocardiogram [...] 53 % LV EF Reported: 53 % [id number] Haris Beverly MD Electronically signed on 01/29/2024 at 3:36:47 PM Final [facility] Work Phone: [facility], [address] [place] [address] and TRANSTHORACIC ECHOCARDIOGRAM REPORT Patient Name: ESME Fischer Physician: [id number] Savana Williamson MD Study Date: 01/29/2024 Ordering Provider: [id number] SAMMI LOREDO MRN/PID: [id number] Fellow: Nurse: Date of /Age: 9 1960 / 63 years Program Manager: Angela Tran RDCS Gender: M Additional Staff: Height: 177.80 cm Admit Date: Weight: 110.68 kg Admission Status: Inpatient - Routine BSA / BMI: 2.27 m2 / 35.01 kg/m2 Blood Pressure: 121/71 mmHg Department Location: [facility] [employer] Study Type: TRANSTHORACIC ECHO (TTE) LIMITED Diagnosis/ICD: Encounter for other preprocedural examination-Z01.818 Indication: Pre LAAO CPT Code: Echo Limited-35453 Patient History: Pertinent History: Persistent afib, ICM, [...] however appears to have an inferior/inferolateral wall [id number] abnormality. Left Atrium: The left atrium is [...] however appears to have an inferior/inferolateral wall vcor3ra abnormality. 4. The left atrium is enlarged. 5. There is moderate mitral annular calcification. 6. Limited TTE pre LAAO closure device placement. 7. No prior echocardiogram available for comparison. QUANTITATIVE DATA SUMMARY: AORTA MEASUREMENTS: Normal Ranges: Ao Sinus, d: 4.30 cm (2.1-3.5cm) [id number] Savana Williamson MD Electronically signed on 01/29/2024 at 3:21:38 PM Final Savana Weldno MD - 01/29/2024 [facility], [address] [place] [address] and TRANSTHORACIC ECHOCARDIOGRAM REPORT Patient Name: ESME STEVEN Reading Physician: [id number] Williamson MD Study Date: 01/29/2024 Ordering Provider: [id number] SAMMI LOREDO MRN/PID: [id number] Fellow: Nurse: Date of /Age: 9 1960 / 63 years Program Manager: Angela Tran RDCS Gender: M Additional Staff: Height: 177.80 cm Admit Date: Weight: 110.68 kg Admission Status: Inpatient - Routine BSA / BMI: 2.27 m2 / 35.01 kg/m2 Blood Pressure: 121/71 mmHg Department Location: [facility] [employer] Study Type: TRANSTHORACIC ECHO (TTE) LIMITED Diagnosis/ICD: Encounter for other preprocedural examination-Z01.818 Indication: Pre LAAO CPT Code: Echo Limited-59326 Patient History: Pertinent History: Persistent afib, ICM, [...] however appears to have an inferior/inferolateral wall [id number] abnormality. Left Atrium: The left atrium is [...] however appears to have an inferior/inferolateral wall [id number] abnormality. 4. The left atrium is enlarged. 5. There is moderate mitral annular calcification. 6. Limited TTE pre LAAO closure device placement. 7. No prior echocardiogram available for comparison. QUANTITATIVE DATA SUMMARY: AORTA MEASUREMENTS: Normal Ranges: Ao Sinus, d: 4.30 cm (2.1-3.5cm) [id number] Savana Williamson MD Electronically signed on 01/29/2024 at 3:21:38 PM Final [facility] Work Phone: Heart TransthoracicOrdere d By: Savana Williamson on 01-29-2024 [facility] Work Phone: Automated basophil %Ordered By: Bird Kowalski on 01-24-2024 Basophils/100 WBC (Bld) 0.4 % Normal . [facility] Comment on above: Performed By: #### B MP, CBC #### [address] Automated basophil countOrde red By: Bird Kowalski on 01-24-2024 Basophils (Bld) [#/Vol] 0.1 10*3/uL Normal 0.0-0.2 [facility] Comment on above: Result Comment: PERF ORMED BY: [place] [address] PATHOLOGIST TRAIN DIRECTOR ALAYNA CAPONE M.D. Performed By: #### B MP, CBC #### [address] Automated blood monocyte cou ntOrdered By: Bird Kowalski on 01-24-2024 Monocytes (Bld) [#/Vol] 0.7 10*3/uL Normal 0.0-0.8 [facility] Comment on above: Performed By: #### B MP, CBC #### [address] Automated eosinophil %Ordere d By: Bird Kowalski on 01-24-2024 Eosinophils/100 WBC (Bld) 0.4 % Normal . [facility] Comment on above: Performed By: #### B MP, CBC #### [address] Automated eosinophil countOr dered By: Bird Kowalski on 01-24-2024 Eosinophils (Bld) [#/Vol] 0.1 10*3/uL Normal 0.0-0.45 [facility] Comment on above: Performed By: #### B MP, CBC #### [address] Automated monocyte %Ordered By: Bird Kowalski on 01-24-2024 Monocytes/100 WBC (Bld) 5.5 % Normal . [facility] Comment on above: Performed By: #### B MP, CBC #### [address] Automated neutrophil %Ordere d By: Bird Kowalski on 01-24-2024 Neutrophils/100 WBC (Bld) 82.3 % Normal . [facility] Comment on above: Performed By: #### B MP, CBC #### [address] Basic Metabolic Panelon 01-07 GFR/1.73 sq M.predicted MDRD (S/P/Bld) [Vol rate/Area] mL/min/{1.73_m2} Normal [facility] Comment on above: Performed By: #### B MP, CBC #### [address] [place] [address] [place] Basophils Auto (Bld) [#/Vol] Ordered By: Bird Kowalski on 01-24-2024 Basophils (Bld) [#/Vol] Automated basophil count 0.0-0.2 [facility] Basophils/100 WBC Auto (Bld) Ordered By: Bird Kowalski on 01-24-2024 Basophils/100 WBC (Bld) Automated basophil % . [facility] Calcium [Mass/volume] in Ser um or PlasmaOrdered By: Bird Kowalski on 01-24-2024 Calcium [Mass/Vol] 9.6 mg/dL Normal 8.6-10.3 [facility] Comment on above: Result Comment: PERF ORMED BY: [place] [address] PATHOLOGIST TRAIN DIRECTOR ALAYNA CAPONE M.D. Performed By: #### B MP, CBC #### [address] Calcium [Mass/Vol] Calcium [Mass/volume ] in Serum or Plasma 8.6-10.3 [facility] Carbon dioxide, total [Moles /volume] in Serum or PlasmaOrdered By: Bird Kowalski on 01-24-2024 CO2 [Moles/Vol] 28.4 mmol/L Normal 21.0-31.0 [facility] Comment on above: Performed By: #### B MP, CBC #### [facility] [address] [place] [address] CO2 [Moles/Vol] Carbon dioxide, tota l [Moles/volume] in Serum or Plasma 21.0-31.0 [facility] Chloride [Moles/volume] in S ursula or PlasmaOrdered By: Bird Kowalski on 01-24-2024 Chloride [Moles/Vol] 101 mmol/L Normal 98-[address] [facility] Comment on above: Performed By: #### B MP, CBC #### [facility] [address] [place] [address] [place] Chloride [Moles/Vol] Chloride [Moles/vol ume] in Serum or Plasma 98-107 [facility] Complete Blood Count Auto Di ffon 01-24-2024 Mean Corpuscular HGB Conc 34.3 g/dL Normal 32.5-35.6 [facility] Comment on above: Performed By: #### B MP, CBC #### [facility] [address] NRBC% 0.1 /100{WBC} Normal 0-0.5 [facility] Comment on above: Performed By: #### B MP, CBC #### [facility] [address] Creatinine [Mass/volume] in Serum or PlasmaOrdered By: Bird Kowalski on 01-24-2024 Creatinine [Mass/Vol] 0.98 mg/dL Normal 0.70-1.[address] [facility] Comment on above: Performed By: #### B MP, CBC #### [facility] [address] [place] [address] Creatinine [Mass/Vol] Creatinine [Mass/v olume] in Serum or Plasma 0.70-1.30 [facility] Eosinophils Auto (Bld) [#/Vo l]Ordered By: Bird Kowalski on 01-24-2024 Eosinophils (Bld) [#/Vol] Automated eosinophil count 0.0-0.45 [facility] Eosinophils/100 WBC Auto (Bl d)Ordered By: Bird Kowalski on 01-24-2024 Eosinophils/100 WBC (Bld) Automated eosinophil % . [facility] Erythrocyte distribution wid th Auto (RBC) [Ratio]Ordered By: Bird Kowalski on 01-24-2024 Erythrocyte distribution width (RBC) [Ratio] Erythrocyte distribution width [Ratio] by Automated count 12.0-14.8 [facility] Erythrocyte distribution wid th [Ratio] by Automated countOrdered By: Bird Kowalski on 01-24-2024 Erythrocyte distribution width (RBC) [Ratio] 13.3 % Normal 12.0-14.8 [facility] Comment on above: Performed By: #### B MP, CBC #### [facility] [address] [place] [address] [place] Erythrocytes [#/volume] in B lood by Automated countOrdered By: Bird Kowalski on 01-24-2024 RBC (Bld) [#/Vol] 4.40 10*6/uL Normal 3.90-5.60 [facility] Comment on above: Performed By: #### B VINH, CBC #### [facility] [address] [place] [address] [place] Glucose [Mass/volume] in Ser um or PlasmaOrdered By: Bird Kowalski on 01-24-2024 Glucose [Mass/Vol] 160 mg/dL High 70-100 [facility] Comment on above: ADA recommended refe rence rangeRandom Glucose Reference Range is dependent on time and content of last meal. Glucose of more than 200 mg/dL in a nonstressed, ambulatory subject supports the diagnosis of Diabetes Mellitus. Result Comment: [place] om Glucose Reference Range is dependent on time and content of last meal. Glucose of more than 200 mg/dL in a nonstressed, ambulatory subject supports the diagnosis of Diabetes Mellitus. ADA recommended reference range Performed By: #### B VINH, CBC #### [facility] [address] [place] [id number] [place] Glucose [Mass/Vol] Glucose [Mass/volume ] in Serum or Plasma High 70-100 [facility] Comment on above: ADA recommended refe rence rangeRandom Glucose Reference Range is dependent on time and content of last meal. Glucose of more than 200 mg/dL in a nonstressed, ambulatory subject supports the diagnosis of Diabetes Mellitus. Hematocrit Auto (Bld) [Volum e fraction]Ordered By: Bird Kowalski on 01-24-2024 Hematocrit (Bld) [Volume fraction] Hematocrit [Volume Fraction] of Blood by Automated count 38.8-50.0 [facility] Hematocrit [Volume Fraction] of Blood by Automated countOrdered By: Bird Kowalski on 01-24-2024 Hematocrit (Bld) [Volume fraction] 46.5 % Normal 38.8-50.0 [facility] Comment on above: Performed By: #### B VINH, CBC #### [facility] [address] [place] [address] [place] Hemoglobin [Mass/volume] in BloodOrdered By: Bird Kowalski on 01-24-2024 Hemoglobin (Bld) [Mass/Vol] 16.0 g/dL Normal 13.0-17.0 [facility] Comment on above: Performed By: #### B MP, CBC #### [facility] [address] [place] [address] Hemoglobin (Bld) [Mass/Vol] Hemoglobin [Mass/volume] in Blood 13.0-17.0 [facility] Leukocytes [#/volume] correc collins for nucleated erythrocytes in Blood by Automated counOrdered By: Bird Kowalski on 01-24-2024 WBC corrected for nucl RBC Auto (Bld) [#/Vol] 12.6 10*3/uL High 4.1-10.5 [facility] WBC corrected for nucl RBC Auto (Bld) [#/Vol] Leukocytes [#/volume] corrected for nucleated erythrocytes in Blood by Automated coun High 4.1-10.5 [facility] Leukocytes [#/volume] in Blo od by Automated countOrdered By: Bird Kowalski on 01-24-2024 WBC (Bld) [#/Vol] 12.6 10*3/uL High 4.1-10.5 [facility] Comment on above: Performed By: #### B MP, CBC #### [facility] [address] [place] [address] Lymphocytes Auto (Bld) [#/Vo l]Ordered By: Bird Kowalski on 01-24-2024 Lymphocytes (Bld) [#/Vol] Lymphocytes [#/volume] in Blood by Automated count 1.00-4.8 [facility] Lymphocytes [#/volume] in Bl ood by Automated countOrdered By: Bird Kowalski on 01-24-2024 Lymphocytes (Bld) [#/Vol] 1.4 10*3/uL Normal 1.00-4.8 [facility] Comment on above: Performed By: #### B MP, CBC #### [address] Lymphocytes/100 WBC Auto (Bl d)Ordered By: Bird Kowalski on 01-24-2024 Lymphocytes/100 WBC (Bld) Lymphocytes/100 leukocytes in Blood by Automated count . [facility] Lymphocytes/100 leukocytes i n Blood by Automated countOrdered By: Bird Kowalski on 01-24-2024 Lymphocytes/100 WBC (Bld) 11.4 % Normal . [facility] Comment on above: Performed By: #### B MP, CBC #### [facility] [address] MCH Auto (RBC) [Entitic mass ]Ordered By: Bird Kowalski on 01-24-2024 MCH (RBC) [Entitic mass] MCH [Entitic mass] by Automated count High 27.5-35.2 [facility] MCH [Entitic mass] by Automa collins countOrdered By: Bird Koawlski on 01-24-2024 MCH (RBC) [Entitic mass] 36.3 pg High 27.5-35.2 [facility] Comment on above: Performed By: #### B MP, CBC #### [facility] [address] [place] [address] MCHC Auto (RBC) [Mass/Vol]Or dered By: Bird Kowalski on 01-24-2024 MCHC (RBC) [Mass/Vol] 34.3 g/dL 32.5-35.[address] [facility] MCHC (RBC) [Mass/Vol] MCHC [Mass/volume] by Automated count 32.5-35.6 [facility] MCV Auto (RBC) [Entitic vol] Ordered By: Bird Kowalski on 01-24-2024 MCV (RBC) [Entitic vol] MCV [Entitic volume] by Automated count High 83.5-101 [facility] MCV [Entitic volume] by Auto mated countOrdered By: Bird Kowalski on 01-24-2024 MCV (RBC) [Entitic vol] 105.8 fL High 83.5-101 [facility] Comment on above: Performed By: #### B MP, CBC #### [facility] [address] [place] [address] Monocytes Auto (Bld) [#/Vol] Ordered By: Bird Kowalski on 01-24-2024 Monocytes (Bld) [#/Vol] Automated blood monocyte count 0.0-0.8 [facility] Monocytes/100 WBC Auto (Bld) Ordered By: Bird Kowalski on 01-24-2024 Monocytes/100 WBC (Bld) Automated monocyte % . [facility] Neutrophils Auto (Bld) [#/Vo l]Ordered By: Bird Kowalski on 01-24-2024 Neutrophils (Bld) [#/Vol] Neutrophils [#/volume] in Blood by Automated count High 1.8-7.7 [facility] Neutrophils [#/volume] in Bl ood by Automated countOrdered By: Bird Kowalski on 01-24-2024 Neutrophils (Bld) [#/Vol] 10.4 10*3/uL High 1.8-7.7 [facility] Comment on above: Performed By: #### B MP, CBC #### [address] Neutrophils/100 WBC Auto (Bl d)Ordered By: Bird Kowalski on 01-24-2024 Neutrophils/100 WBC (Bld) Automated neutrophil % . [facility] No Panel InformationOrdered By: Bird Kowalski on 01-24-2024 Estimated GFR (CKD-EPI) > 60.0 mL/Min [facility] Creatinine Clearance (Chem N/A [facility] Nucleated erythrocytes [Pres ence] in Blood by Automated countOrdered By: Bird Kowalski on 01-24-2024 Nucleated RBC Auto Ql (Bld) 0.1 /100{WBC} 0-0.5 [facility] Nucleated RBC Auto Ql (Bld) Nucleated erythrocytes [Presence] in Blood by Automated count 0-0.5 [facility] Platelet mean volume Auto (B ld) [Entitic vol]Ordered By: Bird Kowalski on 01-24-2024 Platelet mean volume (Bld) [Entitic vol] Platelet mean volume [Entitic volume] in Blood by Automated count High 6.6-10.1 [facility] Platelet mean volume [Entiti c volume] in Blood by Automated countOrdered By: Bird Kowalski on 01-24-2024 Platelet mean volume (Bld) [Entitic vol] 10.2 fL High 6.6-10.1 [facility] Comment on above: Performed By: #### B MP, CBC #### [facility] [address] [place] [address] Platelets Auto (Bld) [#/Vol] Ordered By: Bird Kowalski on 01-24-2024 Platelets (Bld) [#/Vol] Platelets [#/volume] in Blood by Automated count 150-450 [facility] Platelets [#/volume] in Bloo d by Automated countOrdered By: Bird Kowalski on 01-24-2024 Platelets (Bld) [#/Vol] 155 10*3/uL Normal 150-450 [facility] Comment on above: Performed By: #### B MP, CBC #### [facility] [address] [place] [address] Potassium [Moles/volume] in Serum or PlasmaOrdered By: Bird Kowalski on 01-24-2024 Potassium [Moles/Vol] 4.3 mmol/L Normal 3.5-5.[address] [facility] Comment on above: Performed By: #### B MP, CBC #### [facility] [address] [place] [address] Potassium [Moles/Vol] Potassium [Moles/v olume] in Serum or Plasma 3.5-5.1 [facility] RBC Auto (Bld) [#/Vol]Ordere d By: Bird Kowalski on 01-24-2024 RBC (Bld) [#/Vol] Erythrocytes [#/volu me] in Blood by Automated count 3.90-5.60 [facility] Serum or plasma anion gap de terminationOrdered By: Bird Kowalski on 01-24-2024 Anion gap [Moles/Vol] 10.9 mmol/L Normal 6.0-15.0 [facility] Comment on above: Performed By: #### B MP, CBC #### [facility] [address] [place] [address] Anion gap [Moles/Vol] Serum or plasma an ion gap determination 6.0-15.0 [facility] Sodium [Moles/volume] in Ser um or PlasmaOrdered By: Bird Kowalski on 01-24-2024 Sodium [Moles/Vol] 136 mmol/L Normal 136-145 [facility] Comment on above: Performed By: #### B MP, CBC #### [facility] [address] [place] [id number] [facility] Sodium [Moles/Vol] Sodium [Moles/volume ] in Serum or Plasma 136-145 [facility] Urea nitrogen [Mass/volume] in Serum or PlasmaOrdered By: Bird Kowalski on 01-24-2024 Urea nitrogen [Mass/Vol] 20 mg/dL Normal 10-31 [facility] Comment on above: Performed By: #### B MP, CBC #### [facility] [address] [place] [id number] [facility] Urea nitrogen [Mass/Vol] Urea nitrogen [Mass/volume] in Serum or Plasma 10-31 [facility] WBC Auto (Bld) [#/Vol]Ordere d By: Bird Kowalski on 01-24-2024 WBC (Bld) [#/Vol] Leukocytes [#/volume ] in Blood by Automated count High 4.1-10.5 [facility] Jose 12-31-2023 L Specimen: [id number] Received: 12/31/23 Status: SOUT Req Num: [id number] Spec Type: Surgical Subm Dr: Mehrdad Mcmanus MD Tissues: A Colon Biopsy (TRANSVERSE POLYP) B Colon Biopsy (APPENDICEAL ORIFACE BX) C Colon Biopsy (TRANSVERSE POLYP) Procedures: HE/6, Gross/Micro L4/3 Age/ Patient Sex Location Account Attending Physician Esme Steven 63/M [id number] Mehrdad Mcmanus MD SPEC NUM: [id number] RECD: 12/31/23 STATUS: SOUT REQ NUM: [id number] DEUCE: 12/31/[address]: Mehrdad Mcmanus MD ENTERED: 12/31/[address] [facility] DR: SPEC TYPE: Surgical DEPT: S ENTERED BY: [id number] RECV BY: [id number] ORDERED: HE/6, Gross/Micro L4/3 ORDERED: HE/6, Gross/Micro [...] transverse polyp and consists of a Specimen: [id number] Received: 12/31/23 Status: ALYSONYasmine Tatiana Num: [id number] Spec Type: Surgical Subm Dr: Mehrdad Mcmanus MD Tissues: A Colon Biopsy (TRANSVERSE POLYP) B Colon Biopsy (APPENDICEAL ORIFACE BX) C Colon Biopsy (TRANSVERSE POLYP) Procedures: HE/6, Gross/Micro L4/3 Patient: Esme Steven [id number] (Continued) Specimen: [id number] Received: 12/31/23 (Continued) Gross Description (Continued) Signed (signature on file) Michele Almaraz MD 01/03/24 0948 Specimen: [id number] Received: 12/31/23 Status: ESTEFANIA Simpson Num: [id number] Spec Type: Surgical Subm Dr: Mehrdad Mcmanus MD Tissues: A Colon Biopsy (TRANSVERSE POLYP) B Colon Biopsy (APPENDICEAL ORIFACE BX) C Colon Biopsy (TRANSVERSE POLYP) Procedures: HE/Monica, Gross/Micro L4/3 Patient: Esme Steven [id number] (Continued) Specimen: [id number] Received: 12/31/23 (Continued) Gross Description (Continued) calero polypoid shaped soft tissue fragment measuring 0.5 cm in greatest dimension. The specimen is entirely submitted cassette C1. CPT Codes 88 305 x 3 Specimen: [id number] Received: 12/31/23 Status: ESTEFANIA Simpson Num: [id number] Spec Type: Surgical Subm Dr: Mehrdad Mcmanus MD Tissues: A Colon Biopsy (TRANSVERSE POLYP) B Colon Biopsy (APPENDICEAL ORIFACE BX) C Colon Biopsy (TRANSVERSE POLYP) Procedures: Sarahy AGUILAR/Juan Luis L4/3 Patient: Esme Steven [id number] (Continued) Signed (signature on file) Michele Almaraz MD 01/03/2448 [facility] CNCOon 12-18-2023 CNCO Letter Text Normal [facility] Basophils Auto (Bld) [#/Vol] on 11-21-2023 Basophils (Bld) [#/Vol] 0.1 10 3/uL 0.0-0.1 [facility] Basophils/100 WBC Auto (Bld) on 11-21-2023 Basophils/100 WBC (Bld) 0.7 % 0.2-2.0 [facility] Cholesterol in LDL Calc [Mas s/Vol]on 11-21-2023 Cholesterol in LDL [Mass/Vol] 73.0 mg/dL [facility] Comment on above: <100 mg/dl [id number] 0-129 mg/dl NEAR OR ABOVE [id number] mg/dl BORDERLINE [id number] mg/dl HIGH>190 mg/dl VERY HIGH Cholesterol in VLDL Calc [Ma ss/Vol]on 11-21-2023 Cholesterol in VLDL [Mass/Vol] 15.0 mg/dL [facility] Eosinophils/100 WBC Auto (Bl d)on 11-21-2023 Eosinophils/100 WBC (Bld) 1.1 % 0.9-7.0 [facility] Erythrocyte distribution wid th Auto (RBC) [Ratio]on 11-21-2023 Erythrocyte distribution width (RBC) [Ratio] 13.2 % 11.0-15.0 [facility] Estimated glomerular filtrat ion rate (GFR) non- Americanon 11-21-2023 GFR/1.73 sq M.predicted among non-blacks MDRD (S/P/Bld) [Vol rate/Area] mL/min/{1.73_m2} >=60 [facility] Globulin Calc (S) [Mass/Vol] on 11-21-2023 Globulin (S) [Mass/Vol] 3.2 g/dL [facility] Hematocrit Auto (Bld) [Volum e fraction]on 11-21-2023 Hematocrit (Bld) [Volume fraction] 43.6 % 42.0-54.0 [facility] Hemoglobin [Mass/volume] in Bloodon 11-21-2023 Hemoglobin (Bld) [Mass/Vol] 15.2 g/dL 14.0-18.0 [facility] Laboratory - Chemistry and C hemistry - challengeon 11-21-2023 Albumin [Mass/Vol] 3.4 g/dL 3.4-5.0 [facility] ALP [Catalytic activity/Vol] 53 U/L 46-116 [facility] ALT [Catalytic activity/Vol] 48 U/L 16-63 [facility] AST [Catalytic activity/Vol] 19 U/L 15-37 [facility] Bilirubin [Mass/Vol] 0.7 mg/dL 0.2-1.[address] [facility] Calcium [Mass/Vol] 8.6 mg/dL 8.5-10.1 [facility] Chloride [Moles/Vol] 103 mmol/L 98-[address] [facility] Cholesterol [Mass/Vol] 141 mg/dL <=200 [facility] Cholesterol in HDL [Mass/Vol] 53 mg/dL 40-60 [facility] Comment on above: > or =60 mg/dl - LOW CARDIOVASCULAR RISK<40 mg/dl - HIGH CARDIOVASCULAR RISK CO2 [Moles/Vol] 29.6 mmol/L 21.0-32.0 [facility] Creatinine [Mass/Vol] 0.87 mg/dL 0.70-1.[address] [facility] GFR/1.73 sq M.predicted MDRD (S/P/Bld) [Vol rate/Area] mL/min/{1.73_m2} >=60 [facility] Glucose [Mass/Vol] 113 mg/dL High 74-106 [facility] Potassium [Moles/Vol] 4.3 mmol/L 3.5-5.[address] [facility] Protein [Mass/Vol] 6.6 g/dL 6.4-8.2 [facility] Sodium [Moles/Vol] 138 mmol/L 136-145 [facility] Triglyceride [Mass/Vol] 75 mg/dL <=150 [facility] TSH Qn 1.694 m[IU]/L 0.358-3.74 0 [facility] Urea nitrogen [Mass/Vol] 19.0 mg/dL High 7.0-18.0 [facility] Urea nitrogen/Creatinine [Mass ratio] 21.8 mg/mg [facility] Laboratory - Hematology and Cell countson 11-21-2023 Immature granulocytes/100 WBC (Bld) 1.3 % High 0.0-0.5 [facility] Leukocytes [#/volume] correc collins for nucleated erythrocytes in Blood by Automated counon 11-21-2023 WBC corrected for nucl RBC Auto (Bld) [#/Vol] 11.4 10 3/uL High 4.0-11.0 [facility] Lymphocytes Auto (Bld) [#/Vo l]on 11-21-2023 Lymphocytes (Bld) [#/Vol] 2.8 10 3/uL 1.2-3.8 [facility] Lymphocytes/100 WBC Auto (Bl d)on 11-21-2023 Lymphocytes/100 WBC (Bld) 24.3 % 20.5-60.0 [facility] MCH Auto (RBC) [Entitic mass ]on 11-21-2023 MCH (RBC) [Entitic mass] 36.5 pg High 25.9-34.0 [facility] MCHC Auto (RBC) [Mass/Vol]on 11-21-2023 MCHC (RBC) [Mass/Vol] 34.9 g/dL 29.9-35.[address] [facility] MCV Auto (RBC) [Entitic vol] on 11-21-2023 MCV (RBC) [Entitic vol] 104.6 fL High 80.0-94.0 [facility] Monocytes Auto (Bld) [#/Vol] on 11-21-2023 Monocytes (Bld) [#/Vol] 1.0 10 3/uL High 0.3-0.8 [facility] Monocytes/100 WBC Auto (Bld) on 11-21-2023 Monocytes/100 WBC (Bld) 8.5 % 1.7-12.0 [facility] Neutrophils Auto (Bld) [#/Vo l]on 11-21-2023 Neutrophils (Bld) [#/Vol] 7.3 10 3/uL High 1.4-6.5 [facility] Neutrophils/100 WBC Auto (Bl d)on 11-21-2023 Neutrophils/100 WBC (Bld) 64.1 % 43.0-75.0 [facility] No Panel Informationon 11-20 Eosinophils # (Auto) 0.1 10 3/uL 0.0-0.[address] [facility] Immature Granulocyte # (Auto) 0.15 10 3/uL High 0.00-0.03 [facility] Prostate Specific Antigen Screen 0.48 ng/mL <=4.00 [facility] Platelet mean volume Auto (B ld) [Entitic vol]on 11-21-2023 Platelet mean volume (Bld) [Entitic vol] 10.6 fL 9.5-13.5 [facility] Platelets Auto (Bld) [#/Vol] on 11-21-2023 Platelets (Bld) [#/Vol] 180 10 3/uL 150-450 [facility] RBC Auto (Bld) [#/Vol]on RBC (Bld) [#/Vol] 4.17 10 6/uL Low 4.70-6.10 [facility] Serum or plasma albumin/glob ulin mass ratioon 11-21-2023 Albumin/Globulin [Mass ratio] 1.1 {ratio} [facility] Serum or plasma anion gap de terminationon 11-21-2023 Anion gap [Moles/Vol] 9.7 mmol/L [facility] Serum or plasma total choles terol/high density lipoprotein (HDL) cholesterol mass orin 11-21-2023 Cholesterol.total/Chol esterol in HDL [Mass ratio] 2.7 {ratio} [facility] Comment on above: 3.3 - 4.4 LOW RISK4. 4 - 7.1 AVERAGE RISK7.1 - 11.0 MODERATE RISK>11.0 HIGH RISK Laboratory - Hematology and Cell countson 09-05-2023 ESR (Bld) [Velocity] 2 mm/h 0-[address] [facility] No Panel Informationon 09-04 C-Reactive Protein, Quantitative 0.8 mg/dL <0.9 [facility] Basophils Auto (Bld) [#/Vol] Ordered By: Elliott Talley on 09-01-2023 Basophils (Bld) [#/Vol] 0.0 10*3/uL 0.0-0.2 [facility] Basophils/100 WBC Auto (Bld) Ordered By: Elliott Talley on 09-01-2023 Basophils/100 WBC (Bld) 0.5 % . [facility] Eosinophils Auto (Bld) [#/Vo l]Ordered By: Elliott Talley on 09-01-2023 Eosinophils (Bld) [#/Vol] 0.1 10*3/uL 0.0-0.45 [facility] Eosinophils/100 WBC Auto (Bl d)Ordered By: Elliottana maria Talley on 09-01-2023 Eosinophils/100 WBC (Bld) 0.8 % . [facility] Erythrocyte distribution wid th Auto (RBC) [Ratio]Ordered By: Elliottoliver Talley on 09-01-2023 Erythrocyte distribution width (RBC) [Ratio] 15.2 % High 12.0-14.8 [facility] Hematocrit Auto (Bld) [Volum e fraction]Ordered By: Elliott Talley on 09-01-2023 Hematocrit (Bld) [Volume fraction] 47.9 % 38.8-50.0 [facility] Hemoglobin [Mass/volume] in BloodOrdered By: Elliottoliver Talley on 09-01-2023 Hemoglobin (Bld) [Mass/Vol] 16.1 g/dL 13.0-17.0 [facility] Leukocytes [#/volume] correc collins for nucleated erythrocytes in Blood by Automated counOrdered By: Elliott Talley on 09-01-2023 WBC corrected for nucl RBC Auto (Bld) [#/Vol] 7.6 10*3/uL 4.1-10.5 [facility] Lymphocytes Auto (Bld) [#/Vo l]Ordered By: Elliott Talley on 09-01-2023 Lymphocytes (Bld) [#/Vol] 1.0 10*3/uL 1.00-4.8 [facility] Lymphocytes/100 WBC Auto (Bl d)Ordered By: Elliott Talley on 09-01-2023 Lymphocytes/100 WBC (Bld) 13.5 % . [facility] MCH Auto (RBC) [Entitic mass ]Ordered By: Elliott Talley on 09-01-2023 MCH (RBC) [Entitic mass] 34.6 pg 27.5-35.2 [facility] MCHC Auto (RBC) [Mass/Vol]Or dered By: Elliott Talley on 09-01-2023 MCHC (RBC) [Mass/Vol] 33.7 g/dL 32.5-35.[address] [facility] MCV Auto (RBC) [Entitic vol] Ordered By: Elliott Talley on 09-01-2023 MCV (RBC) [Entitic vol] 102.8 fL High 83.5-101 [facility] Monocytes Auto (Bld) [#/Vol] Ordered By: Elliott Talley on 09-01-2023 Monocytes (Bld) [#/Vol] 0.5 10*3/uL 0.0-0.8 [facility] Monocytes/100 WBC Auto (Bld) Ordered By: Elliott Talley on 09-01-2023 Monocytes/100 WBC (Bld) 6.4 % . [facility] Neutrophils Auto (Bld) [#/Vo l]Ordered By: Elliott Talley on 09-01-2023 Neutrophils (Bld) [#/Vol] 6.0 10*3/uL 1.8-7.7 [facility] Neutrophils/100 WBC Auto (Bl d)Ordered By: Elliott Talley on 09-01-2023 Neutrophils/100 WBC (Bld) 78.8 % . [facility] Nucleated erythrocytes [Pres ence] in Blood by Automated countOrdered By: Elliott Talley on 09-01-2023 Nucleated RBC Auto Ql (Bld) 0.0 /100{WBC} 0-0.5 [facility] Platelet mean volume Auto (B ld) [Entitic vol]Ordered By: Elliott Talley on 09-01-2023 Platelet mean volume (Bld) [Entitic vol] 9.1 fL 6.6-10.1 [facility] Platelets Auto (Bld) [#/Vol] Ordered By: Elliott Talley on 09-01-2023 Platelets (Bld) [#/Vol] 119 10*3/uL Low 150-450 [facility] RBC Auto (Bld) [#/Vol]Ordere d By: Elliott Talley on 09-01-2023 RBC (Bld) [#/Vol] 4.66 10*6/uL 3.90-5.60 [facility] WBC Auto (Bld) [#/Vol]Ordere d By: Elliott Talley on 09-01-2023 WBC (Bld) [#/Vol] 7.6 10*3/uL 4.1-10.5 [facility] Activated partial thrombopla stin time (aPTT) in platelet poor plasma by coagulation aOrdered By: Elliott Talley on 08-31-2023 aPTT Coag (PPP) [Time] 27.6 s 25.1-36.5 [facility] Comment on above: A hematocrit value g reater than 55% may lead to inaccurate results in coagulation testing. Patients having hematocrit values >55% require a special collection tube for coagulation studies. Please contact the laboratory at [phone] for redraw instructions. Alanine aminotransferase [En zymatic activity/volume] in Serum or PlasmaOrdered By: Elliott Talley on 08-31-2023 ALT [Catalytic activity/Vol] 33 U/L 7-52 [facility] Albumin [Mass/volume] in Ser um or Plasma by Bromocresol green (BCG) dye binding methoOrdered By: Elliott Talley on 08-31-2023 Albumin BCG dye [Mass/Vol] 3.5 g/dL 3.5-5.7 [facility] Alkaline phosphatase [Enzyma tic activity/volume] in Serum or PlasmaOrdered By: Elliott Talley on 08-31-2023 ALP [Catalytic activity/Vol] 39 U/L 34-104 [facility] Aspartate aminotransferase [ Enzymatic activity/volume] in Serum or PlasmaOrdered By: Elliott Talley on 08-31-2023 AST [Catalytic activity/Vol] 19 U/L 13-39 [facility] Bilirubin.total [Mass/volume ] in Serum or PlasmaOrdered By: Elliott Talley on 08-31-2023 Bilirubin [Mass/Vol] 1.3 mg/dL High 0.3-1.[address] [facility] Comment on above: Samples from patient s who have taken Naproxen have shown spurious elevation in Total Bilirubin levels. A metabolite of Naproxen, O-desmethylnaproxen, has been shown to interfere with the Jayro-Henrik method for measuring Total Bilirubin. Calcium [Mass/volume] in Ser um or PlasmaOrdered By: Elliott Talley on 08-31-2023 Calcium [Mass/Vol] 8.6 mg/dL 8.6-10.3 [facility] Carbon dioxide, total [Moles /volume] in Serum or PlasmaOrdered By: Elliott Talley on 08-31-2023 CO2 [Moles/Vol] 29.2 mmol/L 21.0-31.0 [facility] Chloride [Moles/volume] in S ursula or PlasmaOrdered By: Elliott Talley on 08-31-2023 Chloride [Moles/Vol] 104 mmol/L 98-[address] [facility] Creatinine [Mass/volume] in Serum or PlasmaOrdered By: Elliott Talley on 08-31-2023 Creatinine [Mass/Vol] 1.05 mg/dL 0.70-1.[address] [facility] Globulin Calc (S) [Mass/Vol] Ordered By: Elliott Talley on 08-31-2023 Globulin (S) [Mass/Vol] 2.1 g/dL [facility] Glucose [Mass/volume] in Ser um or PlasmaOrdered By: Elliott Talley on 08-31-2023 Glucose [Mass/Vol] 101 mg/dL High 70-100 [facility] Comment on above: ADA recommended refe rence rangeRandom Glucose Reference Range is dependent on time and content of last meal. Glucose of more than 200 mg/dL in a nonstressed, ambulatory subject supports the diagnosis of Diabetes Mellitus. INR in Platelet poor plasma by Coagulation assayOrdered By: Elliott Talley on 08-31-2023 INR Coag (PPP) [Relative time] 1.1 {INR} [facility] Comment on above: INR Therapeutic Rang e A) Pre- and Peroperative OAT started two weeks before surgery. NOT HIP SURGERY: 1.5 - 2.5 HIP SURGERY: 2 - 3B) Primary and secondary prevention of venous THROMBOSIS: 2 - 3C) Active venous thrombosis, pulmonary embolismand prevention of recurrent venous thrombosis: 2 - 3D) Prevention of arterial thromboembolismincluding patients with mechanical heart valves: 3 - 4.5 Magnesium [Mass/volume] in S ursula or PlasmaOrdered By: Elliott Talley on 08-31-2023 Magnesium [Mass/Vol] 2.0 mg/dL 1.9-2.[address] [facility] No Panel InformationOrdered By: Elliott Talley on 08-31-2023 Estimated GFR (CKD-EPI) > 60.0 mL/Min [facility] Creatinine Clearance (Chem 90.65 [facility] Potassium [Moles/volume] in Serum or PlasmaOrdered By: Elliott Talley on 08-31-2023 Potassium [Moles/Vol] 4.4 mmol/L 3.5-5.[address] [facility] Protein [Mass/volume] in Ser um or PlasmaOrdered By: Elliott Talley on 08-31-2023 Protein [Mass/Vol] 5.6 g/dL Low 6.4-8.9 [facility] Prothrombin time (PT)Ordered By: Elliott Talley on 08-31-2023 PT Coag (PPP) [Time] 13.1 s High 9.0-12.[address] [facility] Comment on above: A hematocrit value g reater than 55% may lead to inaccurate results in coagulation testing. Patients having hematocrit values >55% require a special collection tube for coagulation studies. Please contact the laboratory at [phone] for redraw instructions. Random cortisol measurementO rdered By: Elliott Talley on 08-31-2023 Cortisol [Mass/Vol] 9.4 ug/dL [facility] Comment on above: [facility] prepleater and method:BERTIN UNICEL DXI, POLYCLONAL ANTIBODY CORTISOL ASSAY.Reference range: AM 6 - 24 ug/dl PM <10 ug/dl Serum or plasma albumin/glob ulin mass ratioOrdered By: Elliott Talley on 08-31-2023 Albumin/Globulin [Mass ratio] 1.7 {ratio} [facility] Serum or plasma anion gap de terminationOrdered By: Elliott Talley on 08-31-2023 Anion gap [Moles/Vol] 9.2 mmol/L 6.0-15.[address] [facility] Sodium [Moles/volume] in Ser um or PlasmaOrdered By: Elliott Talley on 08-31-2023 Sodium [Moles/Vol] 138 mmol/L 136-145 [facility] Urea nitrogen [Mass/volume] in Serum or PlasmaOrdered By: Elliott Talley on 08-31-2023 Urea nitrogen [Mass/Vol] 15 mg/dL 10-31 [facility] Activated partial thrombopla stin time (aPTT) in platelet poor plasma by coagulation aOrdered By: Hermes Velez on 08-30-2023 aPTT Coag (PPP) [Time] 25.5 s 25.1-36.5 [facility] Comment on above: A hematocrit value g reater than 55% may lead to inaccurate results in coagulation testing. Patients having hematocrit values >55% require a special collection tube for coagulation studies. Please contact the laboratory at [phone] for redraw instructions. Alanine aminotransferase [En zymatic activity/volume] in Serum or PlasmaOrdered By: Hermes Velez on 08-30-2023 ALT [Catalytic activity/Vol] 44 U/L 7-52 [facility] Albumin [Mass/volume] in Ser um or Plasma by Bromocresol green (BCG) dye binding methoOrdered By: Hermes Velez on 08-30-2023 Albumin BCG dye [Mass/Vol] 4.2 g/dL 3.5-5.7 [facility] Alkaline phosphatase [Enzyma tic activity/volume] in Serum or PlasmaOrdered By: Hermes Velez on 08-30-2023 ALP [Catalytic activity/Vol] 46 U/L 34-104 [facility] Aspartate aminotransferase [ Enzymatic activity/volume] in Serum or PlasmaOrdered By: Hermes Velez on 08-30-2023 AST [Catalytic activity/Vol] 27 U/L 13-39 [facility] Bacterial blood cultureOrder ed By: Hermes Velez on 08-30-2023 Bacteria identified Cx Nom (Bld) NO GROWTH 5 DAYS [facility] Basophils Auto (Bld) [#/Vol] Ordered By: Hermes Velez on 08-30-2023 Basophils (Bld) [#/Vol] 0.1 10*3/uL 0.0-0.2 [facility] Basophils/100 WBC Auto (Bld) Ordered By: Hermes Velez on 08-30-2023 Basophils/100 WBC (Bld) 0.8 % . [facility] Bilirubin Test strip Ql (U)O rdered By: Hermes Velez on 08-30-2023 Bilirubin Ql (U) Negative Negative [facility] Bilirubin.direct [Mass/volum e] in Serum or PlasmaOrdered By: Hermes Velez on 08-30-2023 Bilirubin.direct [Mass/Vol] 0.20 mg/dL High 0.03-0.18 [facility] Bilirubin.total [Mass/volume ] in Serum or PlasmaOrdered By: Hermes Velez on 08-30-2023 Bilirubin [Mass/Vol] 0.9 mg/dL 0.3-1.[address] [facility] COVID CepheidOrdered By: Rodney martinez [place] on 08-30-2023 SARS-CoV-2 (COVID-19) Ab IA Ql Negative Negative [facility] Comment on above: This is a duplicate EQUISO Xpert Xpress CoV-2/Flu/RSV Plus RNA by RT-PCR result to be used for statistical tracking purpose only. SARS-CoV-2 (COVID-19) RNA ROSIE+probe Ql (Unsp spec) [facility] COVID-19 Detected/Not Detect edOrdered By: Elliott Talley on 08-30-2023 SARS-CoV-2 (COVID-19) RNA ROSIE+non-probe Ql (Nph) Not detected Not Detecte [facility] Comment on above: This is a duplicate RP2.1 COVID (PCR) result to be used for statistical tracking purpose only. Calcium [Mass/volume] in Ser um or PlasmaOrdered By: Hremes Velez on 08-30-2023 Calcium [Mass/Vol] 9.3 mg/dL 8.6-10.3 [facility] Carbon dioxide, total [Moles /volume] in Serum or PlasmaOrdered By: Hermes Velez on 08-30-2023 CO2 [Moles/Vol] 25.1 mmol/L 21.0-31.0 [facility] Chloride [Moles/volume] in S ursula or PlasmaOrdered By: Hermes Velez on 08-30-2023 Chloride [Moles/Vol] 100 mmol/L 98-[address] [facility] Color Auto (U)Ordered By: Grayson red Rosie on 08-30-2023 Color (U) Yellow Yellow [facility] Creatine kinase [Enzymatic a ctivity/volume] in Serum or PlasmaOrdered By: Hermes Velez on 08-30-2023 CK [Catalytic activity/Vol] 37 U/L 30-223 [facility] Creatinine [Mass/volume] in Serum or PlasmaOrdered By: Hermes Velez on 08-30-2023 Creatinine [Mass/Vol] 1.11 mg/dL 0.70-1.[address] [facility] Eosinophils Auto (Bld) [#/Vo l]Ordered By: Hermes Velez on 08-30-2023 Eosinophils (Bld) [#/Vol] 0.0 10*3/uL 0.0-0.45 [facility] Eosinophils/100 WBC Auto (Bl d)Ordered By: Hermes Velez on 08-30-2023 Eosinophils/100 WBC (Bld) 0.1 % . [facility] Erythrocyte distribution wid th Auto (RBC) [Ratio]Ordered By: Hermes Velez on 08-30-2023 Erythrocyte distribution width (RBC) [Ratio] 15.1 % 12.0-14.8 [facility] Globulin Calc (S) [Mass/Vol] Ordered By: Hermes Velez on 08-30-2023 Globulin (S) [Mass/Vol] 2.8 g/dL [facility] Glucose [Mass/volume] in Ser um or PlasmaOrdered By: Hermes Velez on 08-30-2023 Glucose [Mass/Vol] 123 mg/dL 70-100 [facility] Comment on above: ADA recommended refe rence rangeRandom Glucose Reference Range is dependent on time and content of last meal. Glucose of more than 200 mg/dL in a nonstressed, ambulatory subject supports the diagnosis of Diabetes Mellitus. Hematocrit Auto (Bld) [Volum e fraction]Ordered By: Hermes Velez on 08-30-2023 Hematocrit (Bld) [Volume fraction] 48.1 % 38.8-50.0 [facility] Hemoglobin [Mass/volume] in BloodOrdered By: Hermes Velez on 08-30-2023 Hemoglobin (Bld) [Mass/Vol] 16.2 g/dL 13.0-17.0 [facility] INR in Platelet poor plasma by Coagulation assayOrdered By: Hermes Velez on 08-30-2023 INR Coag (PPP) [Relative time] 1.1 {INR} [facility] Comment on above: INR Therapeutic Rang e A) Pre- and Peroperative OAT started two weeks before surgery. NOT HIP SURGERY: 1.5 - 2.5 HIP SURGERY: 2 - 3B) Primary and secondary prevention of venous THROMBOSIS: 2 - 3C) Active venous thrombosis, pulmonary embolismand prevention of recurrent venous thrombosis: 2 - 3D) Prevention of arterial thromboembolismincluding patients with mechanical heart valves: 3 - 4.5 Ketones Auto test strip (U) [Mass/Vol]Ordered By: Hermes Velez on 08-30-2023 Ketones (U) [Mass/Vol] Negative Negative [facility] Lactate [Moles/volume] in Se rum or PlasmaOrdered By: Tony Comer on 08-30-2023 Lactate [Moles/Vol] 1.9 mmol/L 0.5-2.2 [facility] Leukocytes [#/volume] correc collins for nucleated erythrocytes in Blood by Automated counOrdered By: Hermes Velez on 08-30-2023 WBC corrected for nucl RBC Auto (Bld) [#/Vol] 14.5 10*3/uL 4.1-10.5 [facility] Lipase [Enzymatic activity/v olume] in Serum or PlasmaOrdered By: Hermes Velez on 08-30-2023 Lipase [Catalytic activity/Vol] 13.0 U/L 11.0-82.0 [facility] Lymphocytes Auto (Bld) [#/Vo l]Ordered By: Hermes Velez on 08-30-2023 Lymphocytes (Bld) [#/Vol] 0.6 10*3/uL 1.00-4.8 [facility] Lymphocytes/100 WBC Auto (Bl d)Ordered By: Hermes Velez on 08-30-2023 Lymphocytes/100 WBC (Bld) 4.4 % . [facility] MCH Auto (RBC) [Entitic mass ]Ordered By: Hermes Velez on 08-30-2023 MCH (RBC) [Entitic mass] 34.5 pg 27.5-35.2 [facility] MCHC Auto (RBC) [Mass/Vol]Or dered By: Hermes Velez on 08-30-2023 MCHC (RBC) [Mass/Vol] 33.7 g/dL 32.5-35.[address] [facility] MCV Auto (RBC) [Entitic vol] Ordered By: Hermes Velez on 08-30-2023 MCV (RBC) [Entitic vol] 102.3 fL 83.5-101 [facility] Monocyte distribution width [Entitic volume] in Blood by AutomatedOrdered By: Hermes Velez on 08-30-2023 Monocyte distribution width Auto (Bld) [Entitic vol] 21.88 % High 0.00-20.00 [facility] Comment on above: For adults in ED, MD W > 20.0 may be associated with a higher risk of sepsis during the first 12 hrs of hospital admission Monocytes Auto (Bld) [#/Vol] Ordered By: Hermes Velez on 08-30-2023 Monocytes (Bld) [#/Vol] 0.3 10*3/uL 0.0-0.8 [facility] Monocytes/100 WBC Auto (Bld) Ordered By: Hermes Velez on 08-30-2023 Monocytes/100 WBC (Bld) 2.3 % . [facility] Natriuretic peptide B [Mass/ Vol]Ordered By: Hermes Velez on 08-30-2023 Natriuretic peptide B (Bld) [Mass/Vol] 401.0 pg/mL High 5-100 [facility] Neutrophils Auto (Bld) [#/Vo l]Ordered By: Hermes Velez on 08-30-2023 Neutrophils (Bld) [#/Vol] 13.4 10*3/uL 1.8-7.7 [facility] Neutrophils/100 WBC Auto (Bl d)Ordered By: Hermes Velez on 08-30-2023 Neutrophils/100 WBC (Bld) 92.4 % . [facility] Nitrite Test strip Ql (U)Ord ered By: Hermes Velez on 08-30-2023 Nitrite Ql (U) Negative Negative [facility] No Panel InformationOrdered By: Hermes Velez on 08-30-2023 Bacterial ID (NA Multiplex Assay) Presumptive Coag Neg. Staph [facility] Bacterial ID (NA Multiplex Assay) Staphylococcus sp coag neg Abnormal [facility] Estimated GFR (CKD-EPI) > 60.0 mL/Min [facility] Creatinine Clearance (Chem 82.75 [facility] Nucleated erythrocytes [Pres ence] in Blood by Automated countOrdered By: Hermes Velez on 08-30-2023 Nucleated RBC Auto Ql (Bld) 0.0 /100{WBC} 0-0.5 [facility] Platelet mean volume Auto (B ld) [Entitic vol]Ordered By: Hermes Velez on 08-30-2023 Platelet mean volume (Bld) [Entitic vol] 8.7 fL 6.6-10.1 [facility] Platelets Auto (Bld) [#/Vol] Ordered By: Hermes Velez on 08-30-2023 Platelets (Bld) [#/Vol] 147 10*3/uL 150-450 [facility] Potassium [Moles/volume] in Serum or PlasmaOrdered By: Hermes Velez on 08-30-2023 Potassium [Moles/Vol] 3.3 mmol/L 3.5-5.[address] [facility] Protein Auto test strip (U) [Mass/Vol]Ordered By: Hermes Velez on 08-30-2023 Protein (U) [Mass/Vol] Negative Negative [facility] Protein [Mass/volume] in Ser um or PlasmaOrdered By: Hermes Velez on 08-30-2023 Protein [Mass/Vol] 7.0 g/dL 6.4-8.9 [facility] Prothrombin time (PT)Ordered By: Hermes Velez on 08-30-2023 PT Coag (PPP) [Time] 12.8 s 9.0-12.[address] [facility] Comment on above: A hematocrit value g reater than 55% may lead to inaccurate results in coagulation testing. Patients having hematocrit values >55% require a special collection tube for coagulation studies. Please contact the laboratory at [phone] for redraw instructions. RBC Auto (Bld) [#/Vol]Ordere d By: Hermes Velez on 08-30-2023 RBC (Bld) [#/Vol] 4.70 10*6/uL 3.90-5.60 [facility] Respiratory pathogens DNA an d RNA panel - Nasopharynx by ROSIE with non-probe detectionOrdered By: Elliott Talley on 08-30-2023 Respiratory pathogens DNA and RNA panel ROSIE+non-probe (Nph) [facility] Serum or plasma albumin/glob ulin mass ratioOrdered By: Hermes Velez on 08-30-2023 Albumin/Globulin [Mass ratio] 1.5 {ratio} [facility] Serum or plasma anion gap de terminationOrdered By: Hermes Velez on 08-30-2023 Anion gap [Moles/Vol] 14.2 mmol/L 6.0-15.0 [facility] Serum or plasma non-glucuron idated bilirubin measurement (mass/volume)Ordered By: Hermes Velez on 08-30-2023 Bilirubin.indirect [Mass/Vol] 0.7 mg/dL [facility] Sodium [Moles/volume] in Ser um or PlasmaOrdered By: Hermes Velez on 08-30-2023 Sodium [Moles/Vol] 136 mmol/L 136-145 [facility] Specific gravity Auto test s trip (U) [Rel density]Ordered By: Hermes Velez on 08-30-2023 Specific gravity (U) [Rel density] 1.016 1.001-1.03 0 [facility] Troponin I.cardiac [Mass/vol ume] in Serum or Plasma by Detection limit <= 0.01 ng/Ordered By: Erin Suresh on 08-30-2023 Troponin I.cardiac DL <= 0.01 ng/mL [Mass/Vol] 16.9 pg/mL 0.0-20.0 [facility] Urea nitrogen [Mass/volume] in Serum or PlasmaOrdered By: Hermes Velez on 08-30-2023 Urea nitrogen [Mass/Vol] 21 mg/dL 10-31 [facility] Urine clarity by refractomet ry automatedOrdered By: Hermes Velez on 08-30-2023 Clarity Refractometry automated (U) Clear Clear [facility] Urine glucose measurement by automated test strip (mass/volume)Ordered By: Hermes Velez on 08-30-2023 Glucose Auto test strip (U) [Mass/Vol] Normal mg/dL Normal [facility] Urine hemoglobin detection b y automated test stripOrdered By: Hermes Velez on 08-30-2023 Hemoglobin Auto test strip Ql (U) Negative Negative [facility] Urine leukocyte esterase det ection by automated test stripOrdered By: Hermes Velez on 08-30-2023 Leukocyte esterase Auto test strip Ql (U) Negative Negative [facility] Urobilinogen Auto test strip (U) [Mass/Vol]Ordered By: Hermes Velez on 08-30-2023 Urobilinogen (U) [Mass/Vol] Normal mg/dL Normal [facility] WBC Auto (Bld) [#/Vol]Ordere d By: Hermes Velez on 08-30-2023 WBC (Bld) [#/Vol] 14.5 10*3/uL 4.1-10.5 [facility] pH Auto test strip (U)Ordere d By: Hermes Velez on 08-30-2023 pH (U) 5.5 [pH] 5.0-9.0 [facility] ECG 12 Lead[place] 08-16-2023 [facility] Work Phone: Sinus with PVC.s [facility] Work Phone: Carbon dioxide, total [Moles /volume] in Serum or PlasmaOrdered By: Daisy Mora on 08-02-2023 CO2 [Moles/Vol] 26.4 mmol/L 21.0-31.0 [facility] Chloride [Moles/volume] in S ursula or PlasmaOrdered By: Daisy Mora on 08-02-2023 Chloride [Moles/Vol] 102 mmol/L 98-[address] [facility] Potassium [Moles/volume] in Serum or PlasmaOrdered By: Daisy Mora on 08-02-2023 Potassium [Moles/Vol] 4.1 mmol/L 3.5-5.[address] [facility] Serum or plasma anion gap de terminationOrdered By: Daisy Mora on 08-02-2023 Anion gap [Moles/Vol] 13.7 mmol/L 6.0-15.0 [facility] Sodium [Moles/volume] in Ser um or PlasmaOrdered By: Daisy Mora on 08-02-2023 Sodium [Moles/Vol] 138 mmol/L 136-145 [facility] ECG 12 [place] 07-27-2023 Atrial fibrillation with controlled rate [facility] Work Phone: CT biopsyon 07-05-2023 CT biopsy 5.3 U/L 1.5-8.1 [facility] Comment on above: This test was bethanie cabrera and its performance characteristics determined by [facility]'s Sarai Mays [facility] Pathology and [facility] [place] ([facility]). It has not been cleared or approved by the FDA. [facility] is regulated under CLIA as qualified to perform high-complexity testing. This test is used for clinical purposes. It should not be regarded as investigational or for research. Laboratory - Chemistry and C hemistry - challengeon 07-05-2023 CK [Catalytic activity/Vol] 52 U/L 51-298 [facility] Cobalamin (Vitamin B12) [Mass/Vol] 685 pg/mL 232-1245 [facility] Urate [Mass/Vol] 7.2 mg/dL 4.0-8.1 [facility] Laboratory - Hematology and Cell countson 07-05-2023 ESR (Bld) [Velocity] 15 mm/h 0-[address] [facility] No Panel Informationon 07-04 C-Reactive Protein, Quantitative 0.8 mg/dL <0.9 [facility] Serum or plasma calcidiol me asurement (mass/volume)on 07-05-2023 25-hydroxyvitamin D3 [Mass/Vol] 21.4 ng/mL 31.0-80.0 [facility] Comment on above: Classification of 25 [place] Vitamin D status: Deficiency/Insufficiency: < or = 30 ng/ml.Sufficiency/Optimal Levels: 31-80 ng/mLToxicity: > 100 ng/mL. Test performed by chemiluminescent immunoassay. BD DXA - AXIAL SKELETONon BD DXA [...] years, Gender: Male SCANNER INFORMATION: DXA Model: Phybridge Date Scanned: 06/28/2023 12:56 PM CLINICAL HISTORY: [...] had a previous bone density in the [facility] or the previous bone density was performed on a different DXA machine (new, updated model or different location) within the [facility]. VERTEBRAL FRACTURE ASSESSMENT Not performed. TRABECULAR BONE [...] FOR MORE INFORMATION ABOUT DIAGNOSIS AND TREATMENT: [facility] for Osteoporosis and Metabolic Bone Disease:? www.ccf.org/arthritis/ost eo National Osteoporosis Foundation:? www.nof.org International Society of Clinical Densitometry www.iscd.org Aging Box Hand: RAQUEL Transcribe Date/Time: Jun 28 2023 1:37P Dictated by : KEREN BRAVO DO This examination was interpreted and the report reviewed and electronically signed by: KEREN BRAVO DO on Jun 28 2023 1:47PM EST [id number] [facility] BD DXA - FOREARM SKELETONon 06-28-2023 BD [...] years, Gender: Male SCANNER INFORMATION: DXA Model: Phybridge Date Scanned: 06/28/2023 12:56 PM CLINICAL HISTORY: [...] had a previous bone density in the [facility] or the previous bone density was performed on a different DXA machine (new, updated model or different location) within the [facility]. VERTEBRAL FRACTURE ASSESSMENT Not performed. TRABECULAR BONE [...] FOR MORE INFORMATION ABOUT DIAGNOSIS AND TREATMENT: [facility] for Osteoporosis and Metabolic Bone Disease:? www.ccf.org/arthritis/ost eo National Osteoporosis Foundation:? www.nof.org International Society of Clinical Densitometry www.iscd.org Aging Box Hand: RAQUEL Transcribe Date/Time: Jun 28 2023 1:37P Dictated by : KEREN BRAVO DO This examination was interpreted and the report reviewed and electronically signed by: KEREN BRAVO DO on Jun 28 2023 1:47PM EST [id number] Normal [facility] DXA Radius and Ulna [Mass/Ar ea] Bone densityon 06-28-2023 [facility] DXA Skeletal system.axial Vi ews for bone densityon 06-28-2023 [facility] BASIC METABOLIC PANLon 06-11 Anion gap [Moles/Vol] 10 mmol/L Normal 5-15 [facility] Comment on above: Performed By: #### C BCA, BMP, 26216-9 #### [facility] ([id number]) [address], [address] [place] [address] Calcium [Mass/Vol] 9.3 mg/dL Normal 8.5-10.5 [facility] Comment on above: Performed By: #### C BCA, BMP, 23739-2 #### [facility] ([id number]) [address], [address] [place] [address] Chloride [Moles/Vol] 102 mmol/L Normal 98-109 [facility] Comment on above: Performed By: #### RAIMUNDO Wong BCA, #### [facility] ([id number]) [address], [facility] [address] [place] [address] CO2 [Moles/Vol] 25 mmol/L Normal 22-32 [facility] Comment on above: Performed By: #### RAIMUNDO Wong BCA, #### [facility] ([id number]) [address] [place] [address] Creatinine [Mass/Vol] 0.95 mg/dL Normal 0.60-1.30 [facility] Comment on above: Result Comment: METH OD TRACEABLE TO IDMS STANDARD Performed By: #### RAIMUNDO Wong BCA, #### [facility] ([id number]) [address] [address] [place] [address] GFR/1.73 sq M.predicted among non-blacks MDRD (S/P/Bld) [Vol rate/Area] 90 mL/min/{1.73_m2} Normal >59 [facility] Comment on above: Result Comment: Reported eGFR is based on the CKD-EPI 2020 equation that does not use a race coefficient. Performed By: #### RAIMUNDO Wong BCA, #### [facility] ([id number]) [address] [place] [address] Glucose [Mass/Vol] 117 mg/dL High 65-99 [facility] Comment on above: Performed By: #### C RAIMUNDO GOLDSMITH, #### [facility] ([id number]) [address] [address] [place] [address] Potassium [Moles/Vol] 3.9 mmol/L Normal 3.5-5.0 [facility] Comment on above: Performed By: #### RAIMUNDO Wong BCA, #### [facility] ([id number]) [address], [address] [place] [address] Sodium [Moles/Vol] 137 mmol/L Normal 134-146 [facility] Comment on above: Performed By: #### Marvin GOLDSMITH [facility], #### [facility] ([id number]) [address], [facility] [address] [place] [address] Urea nitrogen [Mass/Vol] 20 mg/dL Normal 5-27 [facility] Comment on above: Performed By: #### Marvin GOLDSMITH [facility], #### [facility] ([id number]) [address] [place] [address] CBC AND AUTO DIFFon 06-12-19 24 ABSOLUTE BASOPHIL 0.1 X10E9/L Normal 0.0-0.2 [facility] Comment on above: Performed By: #### Marvin GOLDSMITH [facility], #### [facility] ([id number]) [address], [facility] [address] [place] [address] ABSOLUTE NEUTROPHIL 5.9 X10E9/L Normal 1.5-6.6 [facility] Comment on above: Performed By: #### Marvin GOLDSMITH [facility], #### [facility] ([id number]) [address], [facility] [address] [place] [address] Basophils/100 WBC (Bld) 0.6 % Normal [facility] Comment on above: Performed By: #### Marvin GOLDSMITH [facility], #### [facility] ([id number]) [address] [address] [place] [address] Eosinophils (Bld) [#/Vol] 0.1 10*3/uL Normal 0.0-0.4 [facility] Comment on above: Performed By: #### Marvin GOLDSMITH [facility], #### [facility] ([id number]) [address], [address] [place] [address] Eosinophils/100 WBC (Bld) 1.0 % Normal [facility] Comment on above: Performed By: #### Marvin GOLDSMITH [facility], #### [facility] ([id number]) [address], [address] [place] [address] Erythrocyte distribution width (RBC) [Ratio] 14.4 % Normal 11.5-15.0 [facility] Comment on above: Performed By: #### Marvin GOLDSMITH [facility], #### [facility] ([id number]) [address], [address] [place] [address] Hematocrit (Bld) [Volume fraction] 46.6 % Normal 39-49 [facility] Comment on above: Performed By: #### RAIMUNDO Wong BCA, #### [facility] ([id number]) [address], [address] [place] [address] Hemoglobin (Bld) [Mass/Vol] 15.6 g/dL Normal 13.0-17.0 [facility] Comment on above: Performed By: #### Marvin GOLDSMITH [facility], #### [facility] ([id number]) [address] [place] [address] Lymphocytes (Bld) [#/Vol] 2.2 10*3/uL Normal 1.0-3.5 [facility] Comment on above: Performed By: #### RAIMUNDO Wong BCA, #### [facility] ([id number]) [address], [address] [place] [address] Lymphocytes/100 WBC (Bld) 25.1 % Normal [facility] Comment on above: Performed By: #### RAIMUNDO Wong BCA, #### [facility] ([id number]) [address], [address] [place] [address] MCH (RBC) [Entitic mass] 33.5 pg Normal 27-34 [facility] Comment on above: Performed By: #### RAIMUNDO Wong BCA, #### [facility] ([id number]) [address], [address] [place] [address] MCHC (RBC) [Mass/Vol] 33.4 g/dL Normal 32-36 [facility] Comment on above: Performed By: #### RAIMUNDO Wong BCA, #### [facility] ([id number]) [address] [place] [address] MCV (RBC) [Entitic vol] 100 fL Normal 80-100 [facility] Comment on above: Performed By: #### RAIMUNDO Wong BCA, #### [facility] ([id number]) [address] [place] [address] Monocytes (Bld) [#/Vol] 0.7 10*3/uL Normal 0-0.9 [facility] Comment on above: Performed By: #### RAIMUNDO Wong BCA, #### [facility] ([id number]) [address], [address] [place] [address] Monocytes/100 WBC (Bld) 7.5 % Normal [facility] Comment on above: Performed By: #### RAIMUNDO Wong BCA, #### [facility] ([id number]) [address] [place] [address] Neutrophils/100 WBC (Bld) 65.8 % Normal [facility] Comment on above: Performed By: #### RAIMUNDO Wong BCA, #### [facility] ([id number]) [address] [place] [address] Platelet mean volume (Bld) [Entitic vol] 9.3 fL Normal 7-12 [facility] Comment on above: Performed By: #### RAIMUNDO Wong BCA, #### [facility] ([id number]) [address], [address] [place] [address] Platelets (Bld) [#/Vol] 216 10*3/uL Normal 150-450 [facility] Comment on above: Performed By: #### RAIMUNDO Wong BCA, #### [facility] ([id number]) [address], [address] [place] [address] RBC COUNT 4.65 X10E12/L Normal 4.10-5.70 [facility] Comment on above: Performed By: #### RAIMUNDO Wong BCA, #### [facility] ([id number]) [address], [address] [place] [address] WBC (Bld) [#/Vol] 8.9 10*3/uL Normal 4.0-11.0 [facility] Comment on above: Performed By: #### RAIMUNDO Wong BCA, #### [facility] ([id number]) [address], [address] [place] [address] MAGNESIUMon 06-12-2023 Magnesium [Mass/Vol] 1.5 mg/dL Low 1.8-2.6 [facility] Comment on above: Performed By: #### C MP, PINR, 53596-4, , CBCA, 97351-2, 04861-5 #### [facility] ([id number]) [address] [place] [address], [place] [address] POCT EKGon 06-04-2023 [facility] Basophils Auto (Bld) [#/Vol] Ordered By: Melinda Verduzco on 05-21-2023 Basophils (Bld) [#/Vol] 0.1 10*3/uL 0.0-0.2 [facility] Basophils/100 WBC Auto (Bld) Ordered By: Melinda Verduzco on 05-21-2023 Basophils/100 WBC (Bld) 0.6 % . [facility] C reactive protein [Mass/vol ume] in Serum or PlasmaOrdered By: Melinda Verduzco on 05-21-2023 CRP [Mass/Vol] 0.5 mg/dL 0.0-0.5 [facility] Eosinophils Auto (Bld) [#/Vo l]Ordered By: Melinda Verduzco on 05-21-2023 Eosinophils (Bld) [#/Vol] 0.1 10*3/uL 0.0-0.45 [facility] Eosinophils/100 WBC Auto (Bl d)Ordered By: Melinda Verduzco on 05-21-2023 Eosinophils/100 WBC (Bld) 0.4 % . [facility] Erythrocyte distribution wid th Auto (RBC) [Ratio]Ordered By: Melinda Verduzco on 05-21-2023 Erythrocyte distribution width (RBC) [Ratio] 14.5 % 12.0-14.8 [facility] Erythrocyte sedimentation ra te by Photometric methodOrdered By: Melinda Verduzco on 05-21-2023 ESR Photometric method (Bld) [Velocity] 16 mm/hr 0-19 [facility] Fibrin D-dimer [Presence] in Platelet poor plasma by Latex agglutinationOrdered By: Melinda Verduzco on 05-21-2023 Fibrin D-dimer LA Ql (PPP) 213 ng/mL 0-243 [facility] Comment on above: The reference range for [...] coagulation studies. Please contact the laboratory at [phone] for redraw instructions. Hematocrit Auto (Bld) [Volum e fraction]Ordered By: Melinda Verduzco on 05-21-2023 Hematocrit (Bld) [Volume fraction] 47.1 % 38.8-50.0 [facility] Hemoglobin [Mass/volume] in BloodOrdered By: Melinda Verduzco on 05-21-2023 Hemoglobin (Bld) [Mass/Vol] 15.6 g/dL 13.0-17.0 [facility] Leukocytes [#/volume] correc collins for nucleated erythrocytes in Blood by Automated counOrdered By: Melinda Verduzco on 05-21-2023 WBC corrected for nucl RBC Auto (Bld) [#/Vol] 15.1 10*3/uL 4.1-10.5 [facility] Lymphocytes Auto (Bld) [#/Vo l]Ordered By: Melinda Verduzco on 05-21-2023 Lymphocytes (Bld) [#/Vol] 2.1 10*3/uL 1.00-4.8 [facility] Lymphocytes/100 WBC Auto (Bl d)Ordered By: Melinda Verduzco on 05-21-2023 Lymphocytes/100 WBC (Bld) 13.9 % . [facility] MCH Auto (RBC) [Entitic mass ]Ordered By: Melinda Verduzco on 05-21-2023 MCH (RBC) [Entitic mass] 33.3 pg 27.5-35.2 [facility] MCHC Auto (RBC) [Mass/Vol]Or dered By: Melinda Verduzco on 05-21-2023 MCHC (RBC) [Mass/Vol] 33.1 g/dL 32.5-35.[address] [facility] MCV Auto (RBC) [Entitic vol] Ordered By: Melinda Verduzco on 05-21-2023 MCV (RBC) [Entitic vol] 100.7 fL 83.5-101 [facility] Monocytes Auto (Bld) [#/Vol] Ordered By: Melinda Verduzco on 05-21-2023 Monocytes (Bld) [#/Vol] 1.0 10*3/uL 0.0-0.8 [facility] Monocytes/100 WBC Auto (Bld) Ordered By: Melinda Verduzco on 05-21-2023 Monocytes/100 WBC (Bld) 6.8 % . [facility] Neutrophils Auto (Bld) [#/Vo l]Ordered By: Melinda Verduzco on 05-21-2023 Neutrophils (Bld) [#/Vol] 11.8 10*3/uL 1.8-7.7 [facility] Neutrophils/100 WBC Auto (Bl d)Ordered By: Melinda Verduzco on 05-21-2023 Neutrophils/100 WBC (Bld) 78.3 % . [facility] Nucleated erythrocytes [Pres ence] in Blood by Automated countOrdered By: Melinda Verduzco on 05-21-2023 Nucleated RBC Auto Ql (Bld) 0.1 /100{WBC} 0-0.5 [facility] Platelet mean volume Auto (B ld) [Entitic vol]Ordered By: Melinda Verduzco on 05-21-2023 Platelet mean volume (Bld) [Entitic vol] 8.7 fL 6.6-10.1 [facility] Platelets Auto (Bld) [#/Vol] Ordered By: Melinda Verduzco on 05-21-2023 Platelets (Bld) [#/Vol] 228 10*3/uL 150-450 [facility] RBC Auto (Bld) [#/Vol]Ordere d By: Melinda Verduzco on 05-21-2023 RBC (Bld) [#/Vol] 4.68 10*6/uL 3.90-5.60 [facility] WBC Auto (Bld) [#/Vol]Ordere d By: Melinda Verduzco on 05-21-2023 WBC (Bld) [#/Vol] 15.1 10*3/uL 4.1-10.5 [facility] CBC AND AUTO DIFFon 04-18-19 24 ABSOLUTE BASOPHIL 0.1 X10E9/L Normal 0.0-0.2 [facility] Comment on above: Performed By: #### C MP, PINR, 47482-2, 53152-9, CBCA, 71499-6, 21265-5 #### [facility] ([id number]) [address] [place] [address] ABSOLUTE NEUTROPHIL 10.9 X10E9/L High 1.5-6.6 [facility] Comment on above: Performed By: #### C MP, PINR, 29530-2, 18122-3, CBCA, 04619-4, 64482-1 #### [facility] ([id number]) [address] [place] [address] Basophils/100 WBC (Bld) 0.4 % Normal [facility] Comment on above: Performed By: #### C MP, PINR, 07990-5, 52668-8, CBCA, 61262-1, 25613-9 #### [facility] ([id number]) [address] [place] [address] Eosinophils (Bld) [#/Vol] 0.0 10*3/uL Normal 0.0-0.4 [facility] Comment on above: Performed By: #### C MP, PINR, 87429-0, 45885-8, CBCA, 82226-5, 23734-0 #### [facility] ([id number]) [address] [place] [address] Eosinophils/100 WBC (Bld) 0.3 % Normal [facility] Comment on above: Performed By: #### C MP, PINR, 51984-9, 52208-5, CBCA, 88955-4, 58646-9 #### [facility] ([id number]) [address] [place] [address] Erythrocyte distribution width (RBC) [Ratio] 14.2 % Normal 11.5-15.0 [facility] Comment on above: Performed By: #### C MP, PINR, 98293-1, 58475-0, CBCA, 45598-1, 82672-4 #### [facility] ([id number]) [address] [place] [address] Hematocrit (Bld) [Volume fraction] 49.6 % High 39-49 [facility] Comment on above: Performed By: #### C MP, PINR, 76324-4, 39569-2, CBCA, 54072-1, 50218-4 #### [facility] ([id number]) [address] [place] [address] Hemoglobin (Bld) [Mass/Vol] 16.7 g/dL Normal 13.0-17.0 [facility] Comment on above: Performed By: #### C MP, PINR, 75197-8, 48747-7, CBCA, 61846-3, 54759-8 #### [facility] ([id number]) [address] [place] [address] Lymphocytes (Bld) [#/Vol] 1.6 10*3/uL Normal 1.0-3.5 [facility] Comment on above: Performed By: #### C MP, PINR, 14826-7, 40561-6, CBCA, 21397-0, 42281-0 #### [facility] ([id number]) [address] [place] [address] Lymphocytes/100 WBC (Bld) 11.9 % Normal [facility] Comment on above: Performed By: #### C MP, PINR, 03057-4, 30417-1, CBCA, 99925-0, 48647-3 #### [facility] ([id number]) [address] [place] [address] MCH (RBC) [Entitic mass] 34.1 pg High 27-34 [facility] Comment on above: Performed By: #### C MP, PINR, 44788-6, 58847-2, CBCA, 87881-6, 26062-6 #### [facility] ([id number]) [address] [place] [address] MCHC (RBC) [Mass/Vol] 33.7 g/dL Normal 32-36 [facility] Comment on above: Performed By: #### C MP, PINR, 45645-8, 95972-9, CBCA, 12964-8, 84193-8 #### [facility] ([id number]) [address] [place] [address] MCV (RBC) [Entitic vol] 101 fL High 80-100 [facility] Comment on above: Performed By: #### C MP, PINR, 97629-9, 84176-6, CBCA, 64890-2, 63115-5 #### [facility] ([id number]) [address] [place] [address] Monocytes (Bld) [#/Vol] 0.5 10*3/uL Normal 0-0.9 [facility] Comment on above: Performed By: #### C MP, PINR, 03747-1, 64537-6, CBCA, 03642-3, 15148-8 #### [facility] ([id number]) [address] [place] [address] Monocytes/100 WBC (Bld) 3.7 % Normal [facility] Comment on above: Performed By: #### C MP, PINR, 97013-4, 12713-9, CBCA, 84283-3, 56454-1 #### [facility] ([id number]) [address] [place] [address] 799[address] Neutrophils/100 WBC (Bld) 83.7 % Normal [facility] Comment on above: Performed By: #### C MP, PINR, 43166-8, 06195-9, CBCA, 05880-8, 72195-3 #### [facility] ([id number]) [address] [place] [address] Platelet mean volume (Bld) [Entitic vol] 8.5 fL Normal 7-12 [facility] Comment on above: Performed By: #### C MP, PINR, 29613-8, 47193-2, CBCA, 75560-8, 68040-9 #### [facility] ([id number]) [address] [place] [address] Platelets (Bld) [#/Vol] 264 10*3/uL Normal 150-450 [facility] Comment on above: Performed By: #### C MP, PINR, 15527-8, 43606-0, CBCA, 51441-8, 79842-1 #### [facility] ([id number]) [address] [place] [address] RBC COUNT 4.89 X10E12/L Normal 4.10-5.70 [facility] Comment on above: Performed By: #### C MP, PINR, 97069-9, 51917-2, CBCA, 52215-9, 10171-9 #### [facility] ([id number]) [address] [place] [address] WBC (Bld) [#/Vol] 13.0 10*3/uL High 4.0-11.0 [facility] Comment on above: Performed By: #### C MP, PINR, 68961-0, 14949-1, CBCA, 81651-9, 90065-3 #### [facility] ([id number]) [address] [place] [address] COMPREHENSIVE METABOLIC PANE Jose 04-18-2023 Albumin [Mass/Vol] 4.4 g/dL Normal 3.2-5.3 [facility] Comment on above: Performed By: #### C MP, PINR, 99252-6, 34004-9, CBCA, 11907-8, 15260-5 #### [facility] ([id number]) [address] [place] [address] [place] [address] ALP [Catalytic activity/Vol] 69 U/L Normal 39-130 [facility] Comment on above: Performed By: #### C MP, PINR, 31984-2, 55768-2, CBCA, 13808-2, 45172-5 #### [facility] ([id number]) [address] [place] [address]80 ALT [Catalytic activity/Vol] 31 U/L Normal 0-40 [facility] Comment on above: Performed By: #### C MP, PINR, 14158-7, 89141-0, CBCA, 93600-7, 83399-4 #### [facility] ([id number]) [address] [place] [address] 94857 Anion gap [Moles/Vol] 9 mmol/L Normal 5-15 [facility] Comment on above: Performed By: #### C MP, PINR, 31736-5, 03442-9, CBCA, 07707-1, 54214-1 #### [facility] ([id number]) [address] [place] [address] 22757 AST [Catalytic activity/Vol] 26 U/L Normal 0-41 [facility] Comment on above: Performed By: #### C MP, PINR, 94027-9, 66831-7, CBCA, 31771-8, 77323-8 #### [facility] ([id number]) [address] [place] [address] 99388 Bilirubin [Mass/Vol] 0.8 mg/dL Normal 0.3-1.2 [facility] Comment on above: Performed By: #### C MP, PINR, 03754-3, 27231-7, CBCA, 00567-5, 63387-9 #### [facility] ([id number]) [address] [place] [address] 99197 Calcium [Mass/Vol] 9.6 mg/dL Normal 8.5-10.5 [facility] Comment on above: Performed By: #### C MP, PINR, 46051-9, 96474-9, CBCA, 90072-9, 55335-9 #### [facility] ([id number]) [address] [place] [address] 82049 Chloride [Moles/Vol] 99 mmol/L Normal 98-109 [facility] Comment on above: Performed By: #### C MP, PINR, 74820-5, 43016-5, CBCA, 26036-6, 41424-0 #### [facility] ([id number]) [address] [place] [address] 90561 CO2 [Moles/Vol] 24 mmol/L Normal 22-32 [facility] Comment on above: Performed By: #### C MP, PINR, 49439-8, 31531-4, CBCA, 18240-5, 26628-4 #### [facility] ([id number]) [address] [place] [address] 12431 Creatinine [Mass/Vol] 1.26 mg/dL High 0.70-1.20 [facility] Comment on above: Result Comment: METH OD TRACEABLE TO IDMS STANDARD Performed By: #### C MP, PINR, 92855-9, 96807-7, CBCA, 37280-0, 87722-5 #### [facility] [facility] ([id number]) [address] [place] [address] GFR/1.73 sq M.predicted among non-blacks MDRD (S/P/Bld) [Vol rate/Area] 64 mL/min/{1.73_m2} Normal >59 [facility] Comment on above: Result Comment: Reported eGFR is based on the CKD-EPI 2020 equation that does not use a race coefficient. Performed By: #### C MP, PINR, 05725-1, 47161-0, CBCA, 67064-7, 95828-2 #### [facility] ([id number]) [address] [place] [address] 16336 Glucose [Mass/Vol] 196 mg/dL High 65-99 [facility] Comment on above: Performed By: #### C MP, PINR, 77779-1, 59575-2, CBCA, 02954-6, 48401-4 #### [facility] ([id number]) [address] [place] [address] 72281 Potassium [Moles/Vol] 3.8 mmol/L Normal 3.5-5.0 [facility] Comment on above: Performed By: #### C MP, PINR, 35746-2, 97055-4, CBCA, 92671-7, 86470-6 #### [facility] ([id number]) [address] [place] [address] 53298 Protein [Mass/Vol] 7.7 g/dL Normal 6.0-8.0 [facility] Comment on above: Performed By: #### C MP, PINR, 77578-8, 28317-2, CBCA, 48670-6, 44864-4 #### [facility] ([id number]) [address] [place] [address] 33626 Sodium [Moles/Vol] 132 mmol/L Low 134-146 [facility] Comment on above: Performed By: #### C MP, PINR, 24963-3, 99579-7, CBCA, 68959-7, 82265-7 #### [facility] ([id number]) [address] [place] [address] 51373 Urea nitrogen [Mass/Vol] 40 mg/dL High 5-27 [facility] Comment on above: Performed By: #### C MP, PINR, 04014-1, 53220-2, CBCA, 48058-9, 82417-8 #### [facility] ([id number]) [address] [place] [address] 10890 MAGNESIUMon 04-18-2023 Magnesium [Mass/Vol] 1.7 mg/dL Low 1.8-2.6 [facility] Comment on above: Performed By: #### C VINH, PINR, 27292-9, 82408-8, CBCA, 02095-5, 95885-7 #### [facility] ([id number]) [address] [place] [address] 44938 Natriuretic peptide B [Mass/ Vol]on 04-18-2023 Natriuretic peptide B (Bld) [Mass/Vol] 206 pg/mL High <100.0 [facility] Comment on above: Performed By: #### C VINH, PINR, 26706-6, 51014-6, CBCA, 09863-3, 25310-8 #### [facility] ([id number]) [address] [place] [address] 34527 PROTIME AND INRon 04-18-2023 INR Coag (PPP) [Relative time] 1.1 {INR} Normal 0.8-1.1 [facility] Comment on above: Performed By: #### C VINH, PINR, 80963-6, 36751-6, CBCA, 09355-7, 92186-2 #### [facility] ([id number]) [address] [place] [address] 82822 PT Coag (PPP) [Time] 12.3 s Normal 9.8-13.2 [facility] Comment on above: Result Comment: NEW REFERENCE RANGE Performed By: #### C VINH, PINR, 95387-2, 22905-4, CBCA, 69353-9, 94833-2 #### [facility] ([id number]) [address] [place] [address] 90114 TROPONIN Ion 04-18-2023 Troponin I.cardiac [Mass/Vol] 0.01 ng/mL Normal 0.00-0.04 [facility] Comment on above: Performed By: #### C MP, PINR, 19357-9, 42133-3, CBCA, 10079-8, 43975-9 #### [facility] ([id number]) [address] [place] [address] 07383 aPTT Coag (PPP) [Time]on aPTT Coag (Bld) [Time] 28 s Normal 26-37 [facility] Comment on above: Result Comment: NEW REFERENCE RANGE Performed By: #### C MP, PINR, 77845-6, 33460-5, CBCA, 13335-8, 09948-3 #### [facility] ([id number]) [address] [place] [address] 28606 Basophils Auto (Bld) [#/Vol] Ordered By: Sarai Mendez on 01-29-2023 Basophils (Bld) [#/Vol] 0.1 10*3/uL 0.0-0.2 [facility] Basophils/100 WBC Auto (Bld) Ordered By: Sarai Mendez on 01-29-2023 Basophils/100 WBC (Bld) 0.6 % . [facility] Eosinophils Auto (Bld) [#/Vo l]Ordered By: Sarai Mendez on 01-29-2023 Eosinophils (Bld) [#/Vol] 0.0 10*3/uL 0.0-0.45 [facility] Eosinophils/100 WBC Auto (Bl d)Ordered By: Sarai Mendez on 01-29-2023 Eosinophils/100 WBC (Bld) 0.4 % . [facility] Erythrocyte distribution wid th Auto (RBC) [Ratio]Ordered By: Sarai Mendez on 01-29-2023 Erythrocyte distribution width (RBC) [Ratio] 13.8 % 12.0-14.8 [facility] Hematocrit Auto (Bld) [Volum e fraction]Ordered By: Sarai Mendez on 01-29-2023 Hematocrit (Bld) [Volume fraction] 41.9 % 38.8-50.0 [facility] Hemoglobin [Mass/volume] in BloodOrdered By: Sarai Mendez on 01-29-2023 Hemoglobin (Bld) [Mass/Vol] 14.2 g/dL 13.0-17.0 [facility] Leukocytes [#/volume] correc collins for nucleated erythrocytes in Blood by Automated counOrdered By: Sarai Mendez on 01-29-2023 WBC corrected for nucl RBC Auto (Bld) [#/Vol] 11.9 10*3/uL 4.1-10.5 [facility] Lymphocytes Auto (Bld) [#/Vo l]Ordered By: Sarai Mendez on 01-29-2023 Lymphocytes (Bld) [#/Vol] 1.3 10*3/uL 1.00-4.8 [facility] Lymphocytes/100 WBC Auto (Bl d)Ordered By: Sarai Mendez on 01-29-2023 Lymphocytes/100 WBC (Bld) 10.5 % . [facility] MCH Auto (RBC) [Entitic mass ]Ordered By: Sarai Mendez on 01-29-2023 MCH (RBC) [Entitic mass] 35.8 pg 27.5-35.2 [facility] MCHC Auto (RBC) [Mass/Vol]Or dered By: Sarai Mendez on 01-29-2023 MCHC (RBC) [Mass/Vol] 33.8 g/dL 32.5-35.[address] [facility] MCV Auto (RBC) [Entitic vol] Ordered By: Sarai Mendez on 01-29-2023 MCV (RBC) [Entitic vol] 105.8 fL 83.5-101 [facility] Monocytes Auto (Bld) [#/Vol] Ordered By: Sarai Mendez on 01-29-2023 Monocytes (Bld) [#/Vol] 0.6 10*3/uL 0.0-0.8 [facility] Monocytes/100 WBC Auto (Bld) Ordered By: Sarai Mendez on 01-29-2023 Monocytes/100 WBC (Bld) 5.3 % . [facility] Neutrophils Auto (Bld) [#/Vo l]Ordered By: Sarai Mendez on 01-29-2023 Neutrophils (Bld) [#/Vol] 9.9 10*3/uL 1.8-7.7 [facility] Neutrophils/100 WBC Auto (Bl d)Ordered By: Sarai Mendez on 01-29-2023 Neutrophils/100 WBC (Bld) 83.2 % . [facility] Nucleated erythrocytes [Pres ence] in Blood by Automated countOrdered By: Sarai Mendez on 01-29-2023 Nucleated RBC Auto Ql (Bld) 0.1 /100{WBC} 0-0.5 [facility] Platelet mean volume Auto (B ld) [Entitic vol]Ordered By: Sarai Mendez on 01-29-2023 Platelet mean volume (Bld) [Entitic vol] 8.4 fL 6.6-10.1 [facility] Platelets Auto (Bld) [#/Vol] Ordered By: Sarai Mendez on 01-29-2023 Platelets (Bld) [#/Vol] 187 10*3/uL 150-450 [facility] RBC Auto (Bld) [#/Vol]Ordere d By: Sarai Mendez on 01-29-2023 RBC (Bld) [#/Vol] 3.96 10*6/uL 3.90-5.60 [facility] WBC Auto (Bld) [#/Vol]Ordere d By: Sarai Mendez on 01-29-2023 WBC (Bld) [#/Vol] 11.9 10*3/uL 4.1-10.5 [facility] Bilirubin Test strip Ql (U)O rdered By: Sarai Mendez on 01-26-2023 Bilirubin Ql (U) Negative Negative [facility] Calcium [Mass/volume] in Ser um or PlasmaOrdered By: Sarai Mendez on 01-26-2023 Calcium [Mass/Vol] 9.3 mg/dL 8.6-10.3 [facility] Carbon dioxide, total [Moles /volume] in Serum or PlasmaOrdered By: Sarai Mendez on 01-26-2023 CO2 [Moles/Vol] 28.7 mmol/L 21.0-31.0 [facility] Chloride [Moles/volume] in S ursula or PlasmaOrdered By: Sarai Mendez on 01-26-2023 Chloride [Moles/Vol] 101 mmol/L 98-[address] [facility] Color Auto (U)Ordered By: Deborah Mendez on 01-26-2023 Color (U) Yellow Yellow [facility] Creatinine [Mass/volume] in Serum or PlasmaOrdered By: Sarai Mendez on 01-26-2023 Creatinine [Mass/Vol] 1.01 mg/dL 0.70-1.[address] [facility] Fructosamine [Moles/volume] in Serum or PlasmaOrdered By: Sarai Mendez on 01-26-2023 Fructosamine [Moles/Vol] 192 umol/L 0-285 [facility] Comment on above: Published reference interval for apparently healthysubjects between age 20 and 60 is 205 - 285 umol/L and in apoorly controlled diabetic population is 228 - 563 umol/Lwith a mean of 396 umol/L.Performed at: [facility] [id number] Director: Lucas Cooper PhD, Phone: [phone] Glucose [Mass/volume] in Ser um or PlasmaOrdered By: Sarai Mendez on 01-26-2023 Glucose [Mass/Vol] 126 mg/dL 70-100 [facility] Comment on above: ADA recommended refe rence rangeRandom Glucose Reference Range is dependent on time and content of last meal. Glucose of more than 200 mg/dL in a nonstressed, ambulatory subject supports the diagnosis of Diabetes Mellitus. Ketones Auto test strip (U) [Mass/Vol]Ordered By: Sarai Mendez on 01-26-2023 Ketones (U) [Mass/Vol] Negative Negative [facility] Nitrite Test strip Ql (U)Ord ered By: Sarai Mendez on 01-26-2023 Nitrite Ql (U) Negative Negative [facility] No Panel InformationOrdered By: Sarai Mendez on 01-26-2023 Estimated GFR (CKD-EPI) > 60.0 mL/Min [facility] Creatinine Clearance (Chem N/A [facility] Potassium [Moles/volume] in Serum or PlasmaOrdered By: Sarai Mendez on 01-26-2023 Potassium [Moles/Vol] 4.2 mmol/L 3.5-5.[address] [facility] Protein Auto test strip (U) [Mass/Vol]Ordered By: Sarai Mendez on 01-26-2023 Protein (U) [Mass/Vol] Negative Negative [facility] Serum or plasma anion gap de terminationOrdered By: Sarai Mendez on 01-26-2023 Anion gap [Moles/Vol] 10.5 mmol/L 6.0-15.0 [facility] Sodium [Moles/volume] in Ser um or PlasmaOrdered By: Sarai Mendez on 01-26-2023 Sodium [Moles/Vol] 136 mmol/L 136-145 [facility] Specific gravity Auto test s trip (U) [Rel density]Ordered By: Sarai Mendez on 01-26-2023 Specific gravity (U) [Rel density] 1.019 1.001-1.03 0 [facility] Urea nitrogen [Mass/volume] in Serum or PlasmaOrdered By: Sarai Mendez on 01-26-2023 Urea nitrogen [Mass/Vol] 21 mg/dL 7-25 [facility] Urine clarity by refractomet ry automatedOrdered By: Sarai Mendez on 01-26-2023 Clarity Refractometry automated (U) Clear Clear [facility] Urine glucose measurement by automated test strip (mass/volume)Ordered By: Sarai Mendez on 01-26-2023 Glucose Auto test strip (U) [Mass/Vol] Normal mg/dL Normal [facility] Urine hemoglobin detection b y automated test stripOrdered By: Sarai Mendez on 01-26-2023 Hemoglobin Auto test strip Ql (U) Negative Negative [facility] Urine leukocyte esterase det ection by automated test stripOrdered By: Sarai Menedz on 01-26-2023 Leukocyte esterase Auto test strip Ql (U) Negative Negative [facility] Urobilinogen Auto test strip (U) [Mass/Vol]Ordered By: Sarai Menedz on 01-26-2023 Urobilinogen (U) [Mass/Vol] Normal mg/dL Normal [facility] pH Auto test strip (U)Ordere d By: Sarai Mendez on 01-26-2023 pH (U) 7.0 [pH] 5.0-9.0 [facility] C-REACTIVE PROTEIN (CRP)on 0 01-06-2023 CRP [Mass/Vol] <0.9 mg/dL [facility] CK CREATINE KINASEon 023 CK [Catalytic activity/Vol] 35 U/L Low 51 - 298 U/L [facility] Comprehensive metabolic 2000 panelon 01-06-2023 Albumin [Mass/Vol] 4.9 g/dL 3.9 - 4.9 g/dL [facility] ALP [Catalytic activity/Vol] 57 U/L 38 - 113 U/L [facility] ALT [Catalytic activity/Vol] 27 U/L 10 - 54 U/L [facility] Anion gap [Moles/Vol] 15 mmol/L 9 - 18 mmol/L [facility] AST [Catalytic activity/Vol] 16 U/L 14 - 40 U/L [facility] Bilirubin [Mass/Vol] 0.7 mg/dL 0.2 - 1 .3 mg/dL [facility] Calcium [Mass/Vol] 10.3 mg/dL High 8.5 - 10. 2 mg/dL [facility] Chloride [Moles/Vol] 98 mmol/L 97 - 10 5 mmol/L [facility] CO2 [Moles/Vol] 24 mmol/L 22 - 30 mmol/L [facility] Creatinine [Mass/Vol] 0.98 mg/dL 0.73 - 1.22 mg/dL [facility] Estimated Glomerular Filtration Rate 87 mL/min/1.73m >=60 mL/min/1.7 3m [facility] Glucose [Mass/Vol] 120 mg/dL High 74 - 99 mg/dL [facility] Potassium [Moles/Vol] 4.3 mmol/L 3.7 - 5.1 mmol/L [facility] Protein [Mass/Vol] 7.1 g/dL 6.3 - 8.0 g/dL [facility] Sodium [Moles/Vol] 137 mmol/L 136 - 144 mmol/L [facility] Urea nitrogen [Mass/Vol] 20 mg/dL 9 - 24 mg/dL [facility] RHEUMATOID FACTOR BLon 01-06 Rheumatoid factor Qn <16 IU/mL [facility] URIC ACID BLOODon 01-06-2023 Urate [Mass/Vol] 6.1 mg/dL 4.0 - 8.1 mg/dL [facility] VITAMIN B12 BLOODon 01-07-20 Cobalamin (Vitamin B12) [Mass/Vol] 343 pg/mL 232 - 1,245 pg/mL [facility] CBC panel Auto (Bld)on 01-05 Erythrocyte distribution width (RBC) [Ratio] 12.9 % 11.5 - 15.0 % [facility] Hematocrit (Bld) [Volume fraction] 48.7 % 39.0 - 51.0 % [facility] Hemoglobin (Bld) [Mass/Vol] 16.3 g/dL 13.0 - 17.0 g/dL [facility] MCH (RBC) [Entitic mass] 35.6 pg High 26.0 - 34.0 pg [facility] MCHC (RBC) [Mass/Vol] 33.5 g/dL 30.5 - 36.0 g/dL [facility] MCV (RBC) [Entitic vol] 106.3 fL High 80.0 - 100.0 fL [facility] Nucleated RBC (Bld) [#/Vol] <0.01 k/uL [facility] Platelet mean volume (Bld) [Entitic vol] 10.7 fL 9.0 - 12.7 fL [facility] Platelets (Bld) [#/Vol] 207 10*3/uL 150 - 400 k/uL [facility] RBC (Bld) [#/Vol] 4.58 10*6/uL 4.20 - 6.00 m/uL [facility] WBC (Bld) [#/Vol] 12.21 10*3/uL High 3.70 - 11.00 k/uL [facility] ESR Westergren method (Bld) [Velocity]on 01-05-2023 ESR (Bld) [Velocity] 2 mm/h 0 - 15 mm/hr [facility] Albumin [Mass/volume] in Ser um or Plasma by Bromocresol green (BCG) dye binding methoOrdered By: Sarai Mendez on 11-13-2022 Albumin BCG dye [Mass/Vol] 4.3 g/dL 3.5-5.7 [facility] Glucose mean value [Mass/vol ume] in Blood Estimated from glycated hemoglobinOrdered By: Sarai Mendez on 11-13-2022 Average glucose Estimated from glycated hemoglobin (Bld) [Mass/Vol] 114 mg/dL [facility] Hemoglobin A1c percentageOrd ered By: Sarai Mendez on 11-13-2022 HbA1c (Bld) [Mass fraction] 5.6 % 4.3-5.6 [facility] Comment on above: Increased risk for d iabetes: 5.7 - 6.4diabetes: >6.4glycemic control for adults with diabetes: <7.0 Hemoglobin [Mass/volume] in BloodOrdered By: Sarai Mendez on 11-13-2022 Hemoglobin (Bld) [Mass/Vol] 14.7 g/dL 13.0-17.0 [facility] Vitamin D+Metabolites [Mass/ volume] in Serum or PlasmaOrdered By: Sarai Mendez on 11-13-2022 Vitamin D+Metabolites [Mass/Vol] 13.3 ng/mL 30-100 [facility] Comment on above: VITAMIN D STATUS 25( [place])VITAMIN D RANGE (ng/mL) Deficient <20 Insufficient 20 to <30Sufficient 30 to 100Reference: Ras MF,Tanika STILES, Sergio DELGADILLO, et al. Evaluation,treatment, and prevention of vitamin D deficiency; an Endocrine Society clinical practice guideline. JCEM. 2010; 96(7):1911-30. Activated partial thrombopla stin time (aPTT) in platelet poor plasma by coagulation aOrdered By: Damien Holbrook on 10-11-2022 aPTT Coag (PPP) [Time] 24.5 s 25.1-36.5 [facility] Alanine aminotransferase [En zymatic activity/volume] in Serum or PlasmaOrdered By: Damien Holbrook on 10-11-2022 ALT [Catalytic activity/Vol] 37 U/L 7-52 [facility] Albumin [Mass/volume] in Ser um or Plasma by Bromocresol green (BCG) dye binding methoOrdered By: Damien Holbrook on 10-11-2022 Albumin BCG dye [Mass/Vol] 4.3 g/dL 3.5-5.7 [facility] Alkaline phosphatase [Enzyma tic activity/volume] in Serum or PlasmaOrdered By: Damien Holbrook on 10-11-2022 ALP [Catalytic activity/Vol] 51 U/L 34-104 [facility] Aspartate aminotransferase [ Enzymatic activity/volume] in Serum or PlasmaOrdered By: Damien Holbrook on 10-11-2022 AST [Catalytic activity/Vol] 26 U/L 13-39 [facility] Automated erythrocytes count in urine sediment (number/area)Ordered By: Damien Holbrook on 10-11-2022 RBC Auto (Urine sed) [#/Area] 3-4 [HPF] 0-4 [facility] Automated leukocytes count i n urine sediment (number/area)Ordered By: Damien Holbrook on 10-11-2022 WBC Auto (Urine sed) [#/Area] 3-4 [HPF] 0-4 [facility] Automated urine hyaline cast s count (number/volume)Ordered By: Damien Holbrook on 10-11-2022 Hyaline casts Auto (U) [#/Vol] 20-49 [LPF] 0-1 [facility] Basophils Auto (Bld) [#/Vol] Ordered By: Damien Hlobrook on 10-11-2022 Basophils (Bld) [#/Vol] 0.1 10*3/uL 0.0-0.2 [facility] Basophils/100 WBC Auto (Bld) Ordered By: Damien Holbrook on 10-11-2022 Basophils/100 WBC (Bld) 1.1 % . [facility] Bilirubin Test strip Ql (U)O rdered By: Damien Holbrook on 10-11-2022 Bilirubin Ql (U) 1+ Negative [facility] Bilirubin.total [Mass/volume ] in Serum or PlasmaOrdered By: Damien Holbrook on 10-11-2022 Bilirubin [Mass/Vol] 1.0 mg/dL 0.3-1.[address] [facility] Calcium [Mass/volume] in Ser um or PlasmaOrdered By: Damien Holbrook on 10-11-2022 Calcium [Mass/Vol] 9.7 mg/dL 8.6-10.3 [facility] Carbon dioxide, total [Moles /volume] in Serum or PlasmaOrdered By: Damien Holbrook on 10-11-2022 CO2 [Moles/Vol] 27.5 mmol/L 21.0-31.0 [facility] Chloride [Moles/volume] in S ursula or PlasmaOrdered By: Damien Holbrook on 07-05-2023 Chloride [Moles/Vol] 101 mmol/L 98-[address] [facility] Color Auto (U)Ordered By: Gregor Holbrook on 10-11-2022 Color (U) Dark yellow Yellow [facility] Creatinine [Mass/volume] in Serum or PlasmaOrdered By: Damien Holbrook on 10-11-2022 Creatinine [Mass/Vol] 1.25 mg/dL 0.70-1.[address] [facility] Eosinophils Auto (Bld) [#/Vo l]Ordered By: Damien Holbrook on 10-11-2022 Eosinophils (Bld) [#/Vol] 0.0 10*3/uL 0.0-0.45 [facility] Eosinophils/100 WBC Auto (Bl d)Ordered By: Damien Holbrook on 10-11-2022 Eosinophils/100 WBC (Bld) 0.4 % . [facility] Erythrocyte distribution wid th Auto (RBC) [Ratio]Ordered By: Damien Holbrook on 10-11-2022 Erythrocyte distribution width (RBC) [Ratio] 14.4 % 12.0-14.8 [facility] Globulin Calc (S) [Mass/Vol] Ordered By: Damien Holbrook on 10-11-2022 Globulin (S) [Mass/Vol] 2.8 g/dL [facility] Glucose [Mass/volume] in Ser um or PlasmaOrdered By: Damien Holbrook on 10-11-2022 Glucose [Mass/Vol] 128 mg/dL 70-100 [facility] Comment on above: ADA recommended refe rence rangeRandom Glucose Reference Range is dependent on time and content of last meal. Glucose of more than 200 mg/dL in a nonstressed, ambulatory subject supports the diagnosis of Diabetes Mellitus. Hematocrit Auto (Bld) [Volum e fraction]Ordered By: Damien Holbrook on 10-11-2022 Hematocrit (Bld) [Volume fraction] 45.3 % 38.8-50.0 [facility] Hemoglobin [Mass/volume] in BloodOrdered By: Damien Holbrook on 10-11-2022 Hemoglobin (Bld) [Mass/Vol] 15.5 g/dL 13.0-17.0 [facility] Ketones Auto test strip (U) [Mass/Vol]Ordered By: Damien Holbrook on 10-11-2022 Ketones (U) [Mass/Vol] Trace Negative [facility] - CoagulationOrde red By: Damien Holbrook on 10-11-2022 PT Coag (PPP) [Time] 11.8 s 9.0-12.[address] [facility] Leukocytes [#/volume] correc collins for nucleated erythrocytes in Blood by Automated counOrdered By: Damien Holbrook on 10-11-2022 WBC corrected for nucl RBC Auto (Bld) [#/Vol] 11.9 10*3/uL 4.1-10.5 [facility] Lymphocytes Auto (Bld) [#/Vo l]Ordered By: Damien Holbrook on 10-11-2022 Lymphocytes (Bld) [#/Vol] 1.5 10*3/uL 1.00-4.8 [facility] Lymphocytes/100 WBC Auto (Bl d)Ordered By: Damien Holbrook on 10-11-2022 Lymphocytes/100 WBC (Bld) 13.0 % . [facility] MCH Auto (RBC) [Entitic mass ]Ordered By: Damien Holbrook on 10-11-2022 MCH (RBC) [Entitic mass] 35.3 pg 27.5-35.2 [facility] MCHC Auto (RBC) [Mass/Vol]Or dered By: Damien Holbrook on 10-11-2022 MCHC (RBC) [Mass/Vol] 34.2 g/dL 32.5-35.[address] [facility] MCV Auto (RBC) [Entitic vol] Ordered By: Damien Holbrook on 10-11-2022 MCV (RBC) [Entitic vol] 103.4 fL 83.5-101 [facility] Magnesium [Mass/volume] in S ursula or PlasmaOrdered By: Damien Holbrook on 10-11-2022 Magnesium [Mass/Vol] 1.6 mg/dL 1.9-2.[address] [facility] Monocyte distribution width [Entitic volume] in Blood by AutomatedOrdered By: Damien Holbrook on 10-11-2022 Monocyte distribution width Auto (Bld) [Entitic vol] 21.21 % 0.00-20.00 [facility] Comment on above: For adults in ED, MD W > 20.0 may be associated with a higher risk of sepsis during the first 12 hrs of hospital admission Monocytes Auto (Bld) [#/Vol] Ordered By: Damien Holbrook on 10-11-2022 Monocytes (Bld) [#/Vol] 1.1 10*3/uL 0.0-0.8 [facility] Monocytes/100 WBC Auto (Bld) Ordered By: Damien Holbrook on 10-11-2022 Monocytes/100 WBC (Bld) 9.1 % . [facility] Natriuretic peptide B [Mass/ Vol]Ordered By: Damien Holbrook on 10-11-2022 Natriuretic peptide B (Bld) [Mass/Vol] 206.0 pg/mL 5-100 [facility] Neutrophils Auto (Bld) [#/Vo l]Ordered By: Damien Holbrook on 10-11-2022 Neutrophils (Bld) [#/Vol] 9.1 10*3/uL 1.8-7.7 [facility] Neutrophils/100 WBC Auto (Bl d)Ordered By: Damien Holbrook on 10-11-2022 Neutrophils/100 WBC (Bld) 76.4 % . [facility] Nitrite Test strip Ql (U)Ord ered By: Damien Holbrook on 10-11-2022 Nitrite Ql (U) Negative Negative [facility] No Panel InformationOrdered By: Damien Holbrook on 10-11-2022 Estimated GFR (CKD-EPI) > 60.0 mL/Min [facility] Creatinine Clearance (Chem N/A [facility] Nucleated erythrocytes [Pres ence] in Blood by Automated countOrdered By: Damien Holbrook on 10-11-2022 Nucleated RBC Auto Ql (Bld) 0.1 /100{WBC} 0-0.5 [facility] Platelet mean volume Auto (B ld) [Entitic vol]Ordered By: Damien Holbrook on 10-11-2022 Platelet mean volume (Bld) [Entitic vol] 8.6 fL 6.6-10.1 [facility] Platelet poor plasma interna tional normalized ratio (INR) by coagulation assay (relatOrdered By: Damien Holbrook on 10-11-2022 INR Coag (PPP) [Relative time] 1.0 {INR} [facility] Comment on above: INR Therapeutic Rang e [...] 10-11-2022 Platelets (Bld) [#/Vol] 197 10*3/uL 150-450 [facility] Potassium [Moles/volume] in Serum or PlasmaOrdered By: Damien Holbrook on 10-11-2022 Potassium [Moles/Vol] 4.0 mmol/L 3.5-5.[address] [facility] Protein Auto test strip (U) [Mass/Vol]Ordered By: Damien Holbrook on 10-11-2022 Protein (U) [Mass/Vol] 100 mg/dL Negative [facility] Protein [Mass/volume] in Ser um or PlasmaOrdered By: Damien Holbrook on 10-11-2022 Protein [Mass/Vol] 7.1 g/dL 6.4-8.9 [facility] RBC Auto (Bld) [#/Vol]Ordere d By: Damien Holbrook on 10-11-2022 RBC (Bld) [#/Vol] 4.38 10*6/uL 3.90-5.60 [facility] Serum or plasma albumin/glob ulin mass ratioOrdered By: Damien Holbrook on 10-11-2022 Albumin/Globulin [Mass ratio] 1.5 {ratio} [facility] Serum or plasma anion gap de terminationOrdered By: Damien Holbrook on 10-11-2022 Anion gap [Moles/Vol] 12.5 mmol/L 6.0-15.0 [facility] Sodium [Moles/volume] in Ser um or PlasmaOrdered By: Damien Holbrook on 10-11-2022 Sodium [Moles/Vol] 137 mmol/L 136-145 [facility] Specific gravity Auto test s trip (U) [Rel density]Ordered By: Damien Holbrook on 10-11-2022 Specific gravity (U) [Rel density] 1.027 1.001-1.03 0 [facility] Squamous epithelial cells de tection in urine sediment by light microscopyOrdered By: Damien Holbrook on 10-11-2022 Epithelial cells.squamous LM Ql (Urine sed) 0-1 [HPF] 0-2 [facility] Troponin I.cardiac [Mass/vol ume] in Serum or Plasma by Detection limit <= 0.01 ng/Ordered By: Damien Holbrook on 10-11-2022 Troponin I.cardiac DL <= 0.01 ng/mL [Mass/Vol] 17.7 pg/mL 0.0-20.0 [facility] Urea nitrogen [Mass/volume] in Serum or PlasmaOrdered By: Damien Holbrook on 10-11-2022 Urea nitrogen [Mass/Vol] 19 mg/dL 7-25 [facility] Urine bacteria detection by automated methodOrdered By: Damien Holbrook on 10-11-2022 Bacteria Auto Ql (U) None seen None Seen [facility] Urine clarity by refractomet ry automatedOrdered By: Damien Holbrook on 10-11-2022 Clarity Refractometry automated (U) Cloudy Clear [facility] Urine glucose measurement by automated test strip (mass/volume)Ordered By: Damien Holbrook on 10-11-2022 Glucose Auto test strip (U) [Mass/Vol] Normal mg/dL Normal [facility] Urine hemoglobin detection b y automated test stripOrdered By: Damien Holbrook on 10-11-2022 Hemoglobin Auto test strip Ql (U) Negative Negative [facility] Urine leukocyte esterase det ection by automated test stripOrdered By: Damien Holbrook on 10-11-2022 Leukocyte esterase Auto test strip Ql (U) 1+ Negative [facility] Urobilinogen Auto test strip (U) [Mass/Vol]Ordered By: Damien Holbrook on 10-11-2022 Urobilinogen (U) [Mass/Vol] Normal mg/dL Normal [facility] WBC Auto (Bld) [#/Vol]Ordere d By: Damien Holbrook on 10-11-2022 WBC (Bld) [#/Vol] 11.9 10*3/uL 4.1-10.5 [facility] pH Auto test strip (U)Ordere d By: Damien Holbrook on 10-11-2022 pH (U) 5.5 [pH] 5.0-9.0 [facility] Automated erythrocytes count in urine sediment (number/area)Ordered By: Sarai Georges on 10-02-2022 RBC Auto (Urine sed) [#/Area] 1-2 [HPF] 0-4 [facility] Automated leukocytes count i n urine sediment (number/area)Ordered By: Sarai Georges on 10-02-2022 WBC Auto (Urine sed) [#/Area] None seen [HPF] 0-4 [facility] Basophils Auto (Bld) [#/Vol] Ordered By: Sarai Georges on 10-02-2022 Basophils (Bld) [#/Vol] 0.1 10*3/uL 0.0-0.2 [facility] Basophils/100 WBC Auto (Bld) Ordered By: Sarai Georges on 10-02-2022 Basophils/100 WBC (Bld) 0.6 % . [facility] Bilirubin Auto test strip Ql (U)Ordered By: Sarai Georges on 10-02-2022 Bilirubin Ql (U) Negative Negative [facility] C reactive protein [Mass/vol ume] in Serum or PlasmaOrdered By: Sarai Georges on 10-02-2022 CRP [Mass/Vol] 0.5 mg/dL 0.0-0.5 [facility] Creatine kinase [Enzymatic a ctivity/volume] in Serum or PlasmaOrdered By: Sarai Georges on 10-02-2022 CK [Catalytic activity/Vol] 52 U/L 30-223 [facility] Creatinine [Mass/volume] in Serum or PlasmaOrdered By: Sarai Georges on 10-02-2022 Creatinine [Mass/Vol] 1.00 mg/dL 0.70-1.[address] [facility] DNA double strand Ab [Units/ volume] in SerumOrdered By: Sarai Georges on 10-02-2022 DNA double strand Ab Qn (S) [IU]/mL 0-9 [facility] Comment on above: Negative <5 Equivoca l 5 - 9 Positive >9Performed at: [facility] [place] [id number] Director: Lucas Cooper PhD, Phone: [phone] Eosinophils Auto (Bld) [#/Vo l]Ordered By: Sarai Georges on 10-02-2022 Eosinophils (Bld) [#/Vol] 0.0 10*3/uL 0.0-0.45 [facility] Eosinophils/100 WBC Auto (Bl d)Ordered By: Sarai Georges on 10-02-2022 Eosinophils/100 WBC (Bld) 0.5 % . [facility] Erythrocyte distribution wid th Auto (RBC) [Ratio]Ordered By: Sarai Georges on 10-02-2022 Erythrocyte distribution width (RBC) [Ratio] 14.9 % 12.0-14.8 [facility] Erythrocyte sedimentation ra te by Photometric methodOrdered By: Sarai Georges on 10-02-2022 ESR Photometric method (Bld) [Velocity] 16 mm/hr 0-19 [facility] Hematocrit Auto (Bld) [Volum e fraction]Ordered By: Sarai Georges on 10-02-2022 Hematocrit (Bld) [Volume fraction] 41.2 % 38.8-50.0 [facility] Hemoglobin [Mass/volume] in BloodOrdered By: Sarai Georges on 10-02-2022 Hemoglobin (Bld) [Mass/Vol] 14.0 g/dL 13.0-17.0 [facility] Ketones Auto test strip (U) [Mass/Vol]Ordered By: Sarai Georges on 10-02-2022 Ketones (U) [Mass/Vol] Negative Negative [facility] - UrinalysisOrder ed By: Sarai Georges on 10-02-2022 Hyaline casts LM Ql (Urine sed) 0-8 [LPF] 0-8 [facility] Leukocytes [#/volume] correc collins for nucleated erythrocytes in Blood by Automated counOrdered By: Sarai Georges on 10-02-2022 WBC corrected for nucl RBC Auto (Bld) [#/Vol] 9.5 10*3/uL 4.1-10.5 [facility] Lymphocytes Auto (Bld) [#/Vo l]Ordered By: Sarai Georges on 10-02-2022 Lymphocytes (Bld) [#/Vol] 1.7 10*3/uL 1.00-4.8 [facility] Lymphocytes/100 WBC Auto (Bl d)Ordered By: Sarai Georges on 10-02-2022 Lymphocytes/100 WBC (Bld) 18.5 % . [facility] MCH Auto (RBC) [Entitic mass ]Ordered By: Sarai Georges on 10-02-2022 MCH (RBC) [Entitic mass] 35.4 pg 27.5-35.2 [facility] MCHC Auto (RBC) [Mass/Vol]Or dered By: Sarai Georges on 10-02-2022 MCHC (RBC) [Mass/Vol] 33.9 g/dL 32.5-35.[address] [facility] MCV Auto (RBC) [Entitic vol] Ordered By: Sarai Georges on 10-02-2022 MCV (RBC) [Entitic vol] 104.5 fL 83.5-101 [facility] Monocytes Auto (Bld) [#/Vol] Ordered By: Sarai Georges on 10-02-2022 Monocytes (Bld) [#/Vol] 0.7 10*3/uL 0.0-0.8 [facility] Monocytes/100 WBC Auto (Bld) Ordered By: Sarai Georges on 10-02-2022 Monocytes/100 WBC (Bld) 7.2 % . [facility] Neutrophils Auto (Bld) [#/Vo l]Ordered By: Sarai Georges on 10-02-2022 Neutrophils (Bld) [#/Vol] 6.9 10*3/uL 1.8-7.7 [facility] Neutrophils/100 WBC Auto (Bl d)Ordered By: Sarai Georges on 10-02-2022 Neutrophils/100 WBC (Bld) 73.2 % . [facility] No Panel InformationOrdered By: Sarai Georges on 10-02-2022 Estimated GFR (CKD-EPI) > 60.0 mL/Min [facility] Creatinine Clearance (Chem N/A [facility] Total Complement (CH50) >60 U/mL >41 [facility] Comment on above: Age Male Female 1 [...] to determine out of range values.Performed at: [facility] [address] [id number] Director: Lucas Cooper PhD, Phone: [phone] Nucleated erythrocytes [Pres ence] in Blood by Automated countOrdered By: Sarai Georges on 10-02-2022 Nucleated RBC Auto Ql (Bld) 0.1 /100{WBC} 0-0.5 [facility] Platelet mean volume Auto (B ld) [Entitic vol]Ordered By: Sarai Georges on 10-02-2022 Platelet mean volume (Bld) [Entitic vol] 8.9 fL 6.6-10.1 [facility] Platelets Auto (Bld) [#/Vol] Ordered By: Sarai Georges on 10-02-2022 Platelets (Bld) [#/Vol] 201 10*3/uL 150-450 [facility] Protein Auto test strip (U) [Mass/Vol]Ordered By: Sarai Georges on 10-02-2022 Protein (U) [Mass/Vol] Negative Negative [facility] RBC Auto (Bld) [#/Vol]Ordere d By: Sarai Georges on 10-02-2022 RBC (Bld) [#/Vol] 3.94 10*6/uL 3.90-5.60 [facility] Serum Corona extractable nucl ear antigen (OPAL) antibody assay (units/volume)Ordered By: Sarai Georges on 10-02-2022 Corona extractable nuclear Ab Qn (S) <0.2 AI 0.0-0.9 [facility] Serum or plasma complement C 3 measurement (mass/volume)Ordered By: Sarai Georges on 10-02-2022 Complement C3 [Mass/Vol] 147 mg/dL 82-167 [facility] Comment on above: Performed at: [facility] [address], [place] [id number] Director: Lucas Cooper PhD, Phone: [phone] Serum or plasma complement C 4 measurement (mass/volume)Ordered By: Sarai Georges on 10-02-2022 Complement C4 [Mass/Vol] 29 mg/dL 12-38 [facility] Squamous epithelial cells de tection in urine sediment by light microscopyOrdered By: Sarai Georges on 10-02-2022 Epithelial cells.squamous LM Ql (Urine sed) None seen [HPF] 0-2 [facility] Urine appearanceOrdered By: Sarai Georges on 10-02-2022 Appearance (U) Clear Clear [facility] Urine bacteria detection by automated methodOrdered By: Sarai Georges on 10-02-2022 Bacteria Auto Ql (U) None seen None Seen [facility] Urine colorOrdered By: Tyler Georges on 10-02-2022 Color (U) Yellow Yellow [facility] Urine glucose measurement by automated test strip (mass/volume)Ordered By: Sarai Georges on 10-02-2022 Glucose Auto test strip (U) [Mass/Vol] Normal mg/dL Normal [facility] Urine hemoglobin detection b y automated test stripOrdered By: Sarai Georges on 10-02-2022 Hemoglobin Auto test strip Ql (U) Negative Negative [facility] Urine leukocyte esterase det ection by automated test stripOrdered By: Sarai Georges on 10-02-2022 Leukocyte esterase Auto test strip Ql (U) Negative Negative [facility] Urine nitrite detection by a utomated test stripOrdered By: Sarai Georges on 10-02-2022 Nitrite Auto test strip Ql (U) Negative Negative [facility] Urobilinogen Auto test strip (U) [Mass/Vol]Ordered By: Sarai Georges on 10-02-2022 Urobilinogen (U) [Mass/Vol] Normal mg/dL Normal [facility] WBC Auto (Bld) [#/Vol]Ordere d By: Sarai Georges on 10-02-2022 WBC (Bld) [#/Vol] 9.5 10*3/uL 4.1-10.5 [facility] pH Auto test strip (U)Ordere d By: Sarai Georges on 10-02-2022 pH (U) 1.015 [pH] 1.001-1.03 0 [facility] pH (U) 6.5 [pH] 5.0-9.0 [facility] RETICULOCYTEon 07-31-2022 RETIC 3.90 % Critically high 0.60-3.10 [facility] Comment on above: Performed By: #### R ETIC #### [facility] [address] [place] [address] Dr. Tracy Hubbard VIT B12 AND FOLATEon 023 Cobalamin (Vitamin B12) [Mass/Vol] 436.0 pg/mL Normal 193.0-986. 0 [facility] Comment on above: Performed By: #### B 12FOL #### [facility] [address] [place] [address] Dr. Tracy Hubbard FOLATE 17.10 ng/mL Normal 8.60-58.90 [facility] Comment on above: Performed By: #### B 12FOL #### [facility] [address] [place] [address] Dr. Tracy Hubbard CBC AUTO DIFFon 07-29-2022 BASO # 0.1 103/ul Normal 0.0-0.1 [facility] Comment on above: Performed By: #### C BC #### [facility] [address] [place] [address] Dr. Tracy Hubbard Basophils/100 WBC (Bld) 0.7 % Normal 0.2-2.0 [facility] Comment on above: Performed By: #### C BC #### [facility] [address] [place] [address] Dr. Tracy Hubbard EO # 0.1 103/ul Normal 0.0-0.7 [facility] Comment on above: Performed By: #### C BC #### [facility] [address] [place] [address] Dr. Tracy Hubbard Eosinophils/100 WBC (Bld) 1.7 % Normal 0.9-7.0 [facility] Comment on above: Performed By: #### C BC #### [facility] [address] [place] [address] Dr. Tracy Hubbard Erythrocyte distribution width (RBC) [Ratio] 12.8 % Normal 11.0-15.0 [facility] Comment on above: Performed By: #### C BC #### [facility] [address] [place] [address] Dr. Tracy Hubbard Hematocrit (Bld) [Volume fraction] 44.6 % Normal 42.0-54.0 [facility] Comment on above: Performed By: #### C BC #### [facility] [address] [place] [address] Dr. Tracy Hubbard Hemoglobin (Bld) [Mass/Vol] 15.5 g/dL Normal 14.0-18.0 [facility] Comment on above: Performed By: #### C BC #### [facility] [address] [place] [address] Dr. Tracy Hubbard IG # 0.03 10e3/ul Normal 0.00-0.03 [facility] Comment on above: Performed By: #### C BC #### [facility] [address] [place] [address] Dr. Tracy Hubbard IG % 0.4 % Normal 0.0-0.5 [facility] Comment on above: Performed By: #### C BC #### [facility] [address] [place] [address] Dr. Tracy Hubbard LYMPH # 1.7 103/ul Normal 1.2-3.8 [facility] Comment on above: Performed By: #### C BC #### [facility] [address] [place] [address] Dr. Tracy Hubbard Lymphocytes/100 WBC (Bld) 24.8 % Normal 20.5-60.0 [facility] Comment on above: Performed By: #### C BC #### [facility] [address] [place] [address] Dr. Tracy Hubbard MANUAL DIFF REQ NO Normal [facility] Comment on above: Performed By: #### C BC #### [facility] [address] [place], [place] [id number] Dr. Tracy Hubbard MCH (RBC) [Entitic mass] 35.7 pg Critically high 25.9-34.0 [facility] Comment on above: Performed By: #### C BC #### [facility] [address] [place] [address] Dr. Tracy Hubbard MCHC (RBC) [Mass/Vol] 34.8 g/dL Normal 29.9-35.2 [facility] Comment on above: Performed By: #### C BC #### [facility] [address] [place] [address] Dr. Tracy Hubbard MCV (RBC) [Entitic vol] 102.8 fL Critically high 80.0-94.0 [facility] Comment on above: Performed By: #### C BC #### [facility] [address] [place] [address] Dr. Tracy Hubbard MONO # 0.7 103/ul Normal 0.3-0.8 [facility] Comment on above: Performed By: #### C BC #### [facility] [address] [place] [address] Dr. Tracy Hubbard Monocytes/100 WBC (Bld) 9.8 % Normal 1.7-12.0 [facility] Comment on above: Performed By: #### C BC #### [facility] [address] [place] [address] Dr. Tracy Hubbard NEUT # 4.4 103/ul Normal 1.4-6.5 [facility] Comment on above: Performed By: #### C BC #### [facility] [address] [place] [address] Dr. Tracy Hubbard Neutrophils/100 WBC (Bld) 62.6 % Normal 43.0-75.0 [facility] Comment on above: Performed By: #### C BC #### [facility] [address] [place] [address] Dr. Tracy Hubbard Platelet mean volume (Bld) [Entitic vol] 10.3 fL Normal 9.5-13.5 [facility] Comment on above: Performed By: #### C BC #### [facility] [address] [address] [address] Tracy Hubbard PLT 182 103/ul Normal 150-450 [facility] Comment on above: Performed By: #### C BC #### [facility] [address] [address] [address] Tracy Hubbard RBC 4.34 106/ul Critically low 4.70-6.10 [facility] Comment on above: Performed By: #### C BC #### [facility] [address] [address] [address] Tracy Hubbard WBC 7.0 103/ul Normal 4.0-11.0 [facility] Comment on above: Performed By: #### C BC #### [facility] [address] [place] [address] Dr. Tracy Hubbard CPKon 07-29-2022 CK [Catalytic activity/Vol] 84 U/L Normal 39-308 [facility] Comment on above: Performed By: #### C MP, CRP, TSH, LIPID, CK #### [facility] [address] [place] [address] Dr. Tracy Hubbard CRPon 07-29-2022 CRP [Mass/Vol] mg/L Normal <=1.0 [facility] Comment on above: Performed By: #### C MP, CRP, TSH, LIPID, CK #### [facility] [address] [place] [address] Dr. Tracy Hubbard LIPID PROFILEon 07-29-2022 CHOL-HDL RATIO NORM SEE BELOW Normal [facility] Comment on above: Result Comment: 3.3 - 4.4 LOW RISK 4.4 - 7.1 AVERAGE RISK 7.1 - 11.0 MODERATE RISK >11.0 HIGH RISK Performed By: #### C MP, CRP, TSH, LIPID, CK #### [facility] [address] [place] [address] Dr. Tracy Hubbard Cholesterol [Mass/Vol] 145 mg/dL Normal <=200 [facility] Comment on above: Performed By: #### C MP, CRP, TSH, LIPID, CK #### [facility] [address] [place] [address] Dr. rTacy Hubbard Cholesterol in HDL [Mass/Vol] 45 mg/dL Normal 40-60 [facility] Comment on above: Performed By: #### C MP, CRP, TSH, LIPID, CK #### [facility] [address] [address] [address] Tracy Hubbard Cholesterol in LDL [Mass/Vol] 64.4 mg/dL Normal [facility] Comment on above: Performed By: #### C MP, CRP, TSH, LIPID, CK #### [facility] [address] [address] [address] Tracy Hubbard Cholesterol.total/Chol esterol in HDL [Mass ratio] 3.2 {ratio} Normal [facility] Comment on above: Performed By: #### C MP, CRP, TSH, LIPID, CK #### [facility] [address] [address] [address] Tracy Hubbard HDL NORMAL > or = 60 mg/dl - LO W CARDIOVASCULAR RISK <40 mg/dl - HIGH CARDIOVASCULAR RISK Normal [facility] Comment on above: Performed By: #### C MP, CRP, TSH, LIPID, CK #### [facility] [address] [address] [address] Tracy Hubbard LDL CALC NORMAL SEE BELOW Normal [facility] Comment on above: Result Comment: <100 mg/dl OPTIMAL 100 - 129 mg/dl NEAR OR ABOVE OPTIMAL 130 - 159 mg/dl BORDERLINE HIGH 160 - 189 mg/dl HIGH >190 mg/dl VERY HIGH Performed By: #### C MP, CRP, TSH, LIPID, CK #### [facility] [address] [address] [address] Tracy Hubbard Triglyceride [Mass/Vol] 178 mg/dL Critically high <=150 [facility] Comment on above: Performed By: #### C MP, CRP, TSH, LIPID, CK #### [facility] [address] [address] [address] Tracy Hubbard VLDL CALC 35.6 mg/dL Normal [facility] Comment on above: Performed By: #### C MP, CRP, TSH, LIPID, CK #### [facility] [address] [place] [address] Dr. Tracy Hubbard PROF 14(COMP METB)on 023 Albumin [Mass/Vol] 4.1 g/dL Normal 3.4-5.0 [facility] Comment on above: Performed By: #### C MP, CRP, TSH, LIPID, CK #### [facility] [address] [place] [address] Dr. Tracy Hubbard Albumin/Globulin [Mass ratio] 1.2 {ratio} Normal [facility] Comment on above: Performed By: #### C MP, CRP, TSH, LIPID, CK #### [facility] [address] [place] [address] Dr. Tracy Hubbard ALP [Catalytic activity/Vol] 66 U/L Normal 46-116 [facility] Comment on above: Performed By: #### C MP, CRP, TSH, LIPID, CK #### [facility] [address] [place] [address] Dr. Tracy Hubbard ALT [Catalytic activity/Vol] 44 U/L Normal 16-63 [facility] Comment on above: Performed By: #### C MP, CRP, TSH, LIPID, CK #### [facility] [address] [place] [address] Dr. Tracy Hubbard Anion gap [Moles/Vol] 12.3 mmol/L Normal [facility] Comment on above: Performed By: #### C MP, CRP, TSH, LIPID, CK #### [facility] [address] [place] [address] Dr. Tracy Hubbard AST [Catalytic activity/Vol] 26 U/L Normal 15-37 [facility] Comment on above: Performed By: #### C MP, CRP, TSH, LIPID, CK #### [facility] [address] [place] [address] Dr. Tracy Hubbard Bilirubin [Mass/Vol] 0.8 mg/dL Normal 0.2-1.0 [facility] Comment on above: Performed By: #### C MP, CRP, TSH, LIPID, CK #### [facility] [address] [place] [address] Dr. Tracy Hubbard Calcium [Mass/Vol] 8.9 mg/dL Normal 8.5-10.1 [facility] Comment on above: Performed By: #### C MP, CRP, TSH, LIPID, CK #### [facility] [address] [address] [address] Tracy Hubbard Chloride [Moles/Vol] 103 mmol/L Normal 98-107 [facility] Comment on above: Performed By: #### C MP, CRP, TSH, LIPID, CK #### [facility] [address] [address] [address] Tracy Hubbard CO2 [Moles/Vol] 27.0 mmol/L Normal 21.0-32.0 [facility] Comment on above: Performed By: #### C MP, CRP, TSH, LIPID, CK #### [facility] [address] [place] [address] Dr. Tracy Hubbard Creatinine [Mass/Vol] 1.04 mg/dL Normal 0.70-1.30 [facility] Comment on above: Performed By: #### C MP, CRP, TSH, LIPID, CK #### [facility] [address] [place] [address] Dr. Tracy Hubbard EGFR-AF MOSOTHO >60 Normal >=60 [facility] Comment on above: Performed By: #### C MP, CRP, TSH, LIPID, CK #### [facility] [address] [place] [address] Dr. Tracy Hubbard EGFR-NON AF MOSOTHO >60 Normal >=60 [facility] Comment on above: Performed By: #### C MP, CRP, TSH, LIPID, CK #### [facility] [address] [place] [address] Dr. Tracy Hubbard Globulin (S) [Mass/Vol] 3.4 g/dL Normal [facility] Comment on above: Performed By: #### C MP, CRP, TSH, LIPID, CK #### [facility] [address] [address] [address] Tracy Hubbard Glucose [Mass/Vol] 124 mg/dL Critically high 74-106 [facility] Comment on above: Performed By: #### C MP, CRP, TSH, LIPID, CK #### [facility] [address] [place] [address] Dr. Tracy Hubbard Potassium [Moles/Vol] 4.3 mmol/L Normal 3.5-5.1 [facility] Comment on above: Performed By: #### C MP, CRP, TSH, LIPID, CK #### [facility] [address] [place] [address] Dr. Tracy Hubbard Protein [Mass/Vol] 7.5 g/dL Normal 6.4-8.2 [facility] Comment on above: Performed By: #### C MP, CRP, TSH, LIPID, CK #### [facility] [address] [place] [address] Dr. Tracy Hubbard Sodium [Moles/Vol] 138 mmol/L Normal 136-145 [facility] Comment on above: Performed By: #### C MP, CRP, TSH, LIPID, CK #### [facility] [address] [place] [address] Dr. Tracy Hubbard Urea nitrogen [Mass/Vol] 16.0 mg/dL Normal 7.0-18.0 [facility] Comment on above: Performed By: #### C MP, CRP, TSH, LIPID, CK #### [facility] [address] [place] [address] Dr. Tracy Hubbard Urea nitrogen/Creatinine [Mass ratio] 15.4 mg/mg Normal [facility] Comment on above: Performed By: #### C MP, CRP, TSH, LIPID, CK #### [facility] [address] [place] [address] Dr. Tracy Hubbard [facility] mm/hr Normal <=20 [facility] Comment on above: Performed By: #### S EDR #### [facility] [address] [place] [address] Dr. Tracy Hubbard TSHon 07-29-2022 TSH 4.856 uIU/mL Critically high 0.358-3.74 0 [facility] Comment on above: Performed By: #### C MP, CRP, TSH, LIPID, CK #### [facility] [address] [address] [address] Tracy Hubbard XR hip RT min 2V(w/wo pelvis )*on 04-12-2022 XR hip RT min 2V(w/wo pelvis)* [facility] Other XR hip RT min 2V(w/wo pelvis)* [facility] [employer] Other XR hip RT min 2V(w/wo pelvis)* [address] [employer] Other XR hip RT min 2V(w/wo pelvis)* [place] [address] [employer] Other XR hip RT min 2V(w/wo pelvis)* XRay Report [employer] Other XR hip RT min 2V(w/wo pelvis)* Signed [employer] Other XR hip RT min 2V(w/wo pelvis)* Patient: Esme Steven MR#: [id number] [employer] Other XR hip RT min 2V(w/wo pelvis)* 7635 [facility] Other XR hip RT min 2V(w/wo pelvis)* : 1960 Acct:[id number] [employer] Other XR hip RT min 2V(w/wo pelvis)* Age/Sex: 61 / M ADM Date: 04/12/22 [facility] Other XR hip RT min 2V(w/wo pelvis)* Loc: SOXD Room: Type: [facility] Other XR hip RT min 2V(w/wo pelvis)* Attending Dr: Jonathan Samano MD [facility] Other XR hip RT min 2V(w/wo pelvis)* Copies to: Jonathan Samano MD [facility] Other XR hip RT min 2V(w/wo pelvis)* Ordering Provider: Jonathan Samano MD [facility] Other XR hip RT min 2V(w/wo pelvis)* Date of Service: 04/12/22 [facility] Other XR hip RT min 2V(w/wo pelvis)* XR/XR hip RT min 2V(w/wo pelvis)*: Right hip pain [facility] Other XR hip RT min 2V(w/wo pelvis)* RIGHT HIP - 2 views: [facility] Other XR hip RT min 2V(w/wo pelvis)* CLINICAL HISTORY: Low back pain that radiates to right hip for years. No known injury. [facility] Other XR hip RT min 2V(w/wo pelvis)* COMPARISON: None [facility] Other XR hip RT min 2V(w/wo pelvis)* FINDINGS: Moderate degenerative changes of the right hip without acute bony process. Left hip [facility] Other XR hip RT min 2V(w/wo pelvis)* prosthesis is in place. [facility] [employer] Other XR hip RT min 2V(w/wo pelvis)* XR/XR hip RT min 2V(w/wo pelvis)* [facility] Other XR hip RT min 2V(w/wo pelvis)* IMPRESSION: [facility] Other XR hip RT min 2V(w/wo pelvis)* MODERATE DEGENERATIVE CHANGES OF THE RIGHT HIP WITHOUT ACUTE BONY PROCESS.. [facility] Other XR hip RT min 2V(w/wo pelvis)* Impression dictated by: Alex Castro Jr. DBarbaraOBarbara04/12/2022 12:57 PM [facility] Other XR hip RT min 2V(w/wo pelvis)* Dictation Location: [facility] Other XR hip RT min 2V(w/wo pelvis)* Transcribed By: PWS 04/12/22 [facility] Other XR hip RT min 2V(w/wo pelvis)* Dictated By: Alex Castro Jr, DO 04/12/22 1257 [facility] Other XR hip RT min 2V(w/wo pelvis)* Signed By: [facility] Other XR hip RT min 2V(w/wo pelvis)* 04/12/22 1257 [facility] Other XR hand RT min 3V*on 022 XR hand RT min 3V* [facility] Other XR hand RT min 3V* [facility] Other XR hand RT min 3V* [address] [place] [address] [facility] Other XR hand RT min 3V* [place] [address] [facility] Other XR hand RT min 3V* XRay Report [facility] Other XR hand RT min 3V* Signed [facility] Other XR hand RT min 3V* Patient: Law jose antonio Steven MR#: [id number] [facility] Other XR hand RT min 3V* 7635 [facility] Other XR hand RT min 3V* : 1960 Acct:[id number] [facility] Other XR hand RT min 3V* Age/Sex: 61 / M ADM Date: 02/15/22 [facility] Other XR hand RT min 3V* Loc: SOXD Room: Type : REG CLI [facility] Other XR hand RT min 3V* Attending Dr: Orlando Nichole MD [facility] Other XR hand RT min 3V* Copies to: Chio Nichole MD [facility] Other XR hand RT min 3V* Ordering Provider: Chio Nichole MD [facility] Other XR hand RT min 3V* Date of Service: 02/15/22 [facility] Other XR hand RT min 3V* XR/XR hand RT min 3V*: Right hand pain [facility] Other XR hand RT min 3V* [address] film [facility] Other XR hand RT min 3V* COMPARISON:05/23/21 [facility] Other XR hand RT min 3V* HISTORY:3rd metacarp al phalangeal joint pain. 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 Mild interphalangeal degenerative changes. No acute bony findings. 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 [facility] Other XR hand RT min 3V* Impression dictated by: Matt Ferrell M.D.02/15/2022 4:53 PM [facility] Other XR hand RT min 3V* Dictation Location: [place] [address] [facility] Other XR hand RT min 3V* Transcribed By: GWEN 02/15/22 1653 [facility] Other XR hand RT min 3V* Dictated By: Pollo Ferrell DO 02/15/22 165 [facility] Other XR hand RT min 3V* Signed By: [facility] Other XR hand RT min 3V* 02/15/22 1653 [employer] Other XR hip LT min 2V(w/wo pelvis )*on 09-28-2021 XR hip LT min 2V(w/wo pelvis)* [facility] Other XR hip LT min 2V(w/wo pelvis)* [facility] Other XR hip LT min 2V(w/wo pelvis)* [address] [facility] Other XR hip LT min 2V(w/wo pelvis)* [place] [address] [facility] Other XR hip LT min 2V(w/wo pelvis)* XRay Report [facility] Other XR hip LT min 2V(w/wo pelvis)* Signed [facility] Other XR hip LT min 2V(w/wo pelvis)* Patient: Esme Steven MR#: [id number] [facility] Other XR hip LT min 2V(w/wo pelvis)* 5035 [facility] Other XR hip LT min 2V(w/wo pelvis)* : 1960 Acct:[id number] [facility] Other XR hip LT min 2V(w/wo pelvis)* Age/Sex: 60 / M ADM Date: 09/28/21 [facility] Other XR hip LT min 2V(w/wo pelvis)* Loc: SOXD Room: Type: REG CLI [facility] Other XR hip LT min 2V(w/wo pelvis)* Attending Dr: Sarai Mendez II, MD [facility] Other XR hip LT min 2V(w/wo pelvis)* Copies to: Sarai Mendez MD [facility] Other XR hip LT min 2V(w/wo pelvis)* Ordering Provider: Sarai Mendez MD [facility] Other XR hip LT min 2V(w/wo pelvis)* Date of Service: 09/28/21 [facility] Other XR hip LT min 2V(w/wo pelvis)* XR/XR hip LT min 2V(w/wo pelvis)*: S/P total left hip arthroplasty [facility] Other XR hip LT min 2V(w/wo pelvis)* 2 views LEFT hip single view pelvisplain film [facility] Other XR hip LT min 2V(w/wo pelvis)* COMPARISON:08/17/21 [facility] Other XR hip LT min 2V(w/wo pelvis)* HISTORY:Status post LEFT total hip arthroplasty [facility] Other XR hip LT min 2V(w/wo pelvis)* No fracture, dislocation or focal soft tissue abnormality seen.No hardware failure or loosening [facility] Other XR hip LT min 2V(w/wo pelvis)* identified. [facility] Other XR hip LT min 2V(w/wo pelvis)* XR/XR hip LT min 2V(w/wo pelvis)* [facility] Other XR hip LT min 2V(w/wo pelvis)* IMPRESSION:Stable LEFT hip arthroplasty. [facility] Other XR hip LT min 2V(w/wo pelvis)* Impression dictated by: Matt Ferrell M.D.09/28/2021 1:11 PM [facility] Other XR hip LT min 2V(w/wo pelvis)* Dictation Location: [facility] Other XR hip LT min 2V(w/wo pelvis)* Transcribed By: GWEN 09/28/21 1311 [facility] Other XR hip LT min 2V(w/wo pelvis)* Dictated By: Matt Ferrell DO 09/28/21 1310 [facility] Other XR hip LT min 2V(w/wo pelvis)* Signed By: [facility] Other XR hip LT min 2V(w/wo pelvis)* 09/28/21 1311 [facility] Other Laboratory - Hematology and Cell countson 06-02-2009 Lymphocytes/100 WBC (Bld) 14 % [facility] Neutrophils/100 WBC (Bld) 12 % 0 - 25 % [facility] No Panel Informationon 06-02 Clarity, SF Slightly turbid Abnormal CLEAR [facility] Color, SF Slightly bloody Abnormal YEL [facility] Macro%, SF 26 % [facility] [place]%, SF 24 % [facility] [address] /uL [facility] Reac%, SF 6 % [facility] Site, SF Unknown [facility] Slide Number [id number] [facility] Supernatant Clarity, SF Unable to assay. Quantity not sufficient. Abnormal CLEAR [facility] Supernatant Color, SF Unable to assay. Q uantity not sufficient. Abnormal YEL [facility] Synovial CL% 18 % [facility] Synovial Comment Count may be inaccur ate due to Clumped on chamber Cellular disintegration [facility] Synovial Pathologist Interpretation Test Not Indicated [facility] Total Nucleated Cells, SF 200 /uL [facility] Vital Signs Date Time Vital Sign Value Performing Clinician Facility 09-09-2024 12:50-0400 Diastolic blood pressure 63 mm[Hg] Vitaliy Partnerbyte DO Work Phone: [facility] 09-09-2024 12:50-0400 Heart rate 80 /min Vitaliy Brower DO Work Phone: [facility] 09-09-2024 12:50-0400 Respiratory rate 25 /min Vitaliy Ball DO Work Phone: [facility] 09-09-2024 12:50-0400 SaO2% (BldA) [Mass fraction] 96 % Vitaliy Ball DO Work Phone: [facility] 09-09-2024 12:50-0400 Systolic blood pressure 98 mm[Hg] Vitaliy Ball DO Work Phone: [facility] 09-09-2024 10:10-0400 Inhaled oxygen flow rate 3 L/min Vitaliy Ball DO Work Phone: [facility] 09-08-2024 12:00-0400 Body height 179.07 cm Vitaliy Ball DO Work Phone: [facility] 09-08-2024 12:00-0400 Body weight 105 kg Vitaliy Ball DO Work Phone: [facility] 08-22-2024 08:59-0400 Body height 179.1 cm Daisy Mora MD Work Phone: [facility] 08-22-2024 08:59-0400 Body mass index (BMI) [Ratio] 32.82 kg/m2 Daisy Mora MD Work Phone: [facility] 08-22-2024 08:59-0400 Body weight 105.23 kg Daisy Mora MD Work Phone: [facility] 08-22-2024 08:59-0400 Diastolic blood pressure 86 mm[Hg] Daisy Mora MD Work Phone: [facility] 08-22-2024 08:59-0400 Heart rate 95 /min Daisy Mora MD Work Phone: [facility] 08-22-2024 08:59-0400 Systolic blood pressure 132 mm[Hg] Daisy Mora MD Work Phone: [facility] 08-19-2024 16:08-0400 Body height 177.8 cm Vitaliy Ball DO Work Phone: [facility] 08-19-2024 16:08-0400 Body mass index (BMI) [Ratio] 32.8 kg/m2 Vitaliy Ball DO Work Phone: [facility] 08-19-2024 16:08-0400 Body weight 104 kg Vitaliy Ball DO Work Phone: [facility] 08-19-2024 16:08-0400 Diastolic blood pressure 60 mm[Hg] Vitaliy Ball DO Work Phone: [facility] 08-19-2024 16:08-0400 Heart rate 98 /min Vitaliy Ball DO Work Phone: [facility] 08-19-2024 16:08-0400 Respiratory rate 12 /min Vitaliy Ball DO Work Phone: [facility] 08-19-2024 16:08-0400 SaO2% (BldA) [Mass fraction] 97 % Vitaliy Ball DO Work Phone: [facility] 08-19-2024 16:08-0400 Systolic blood pressure 92 mm[Hg] Vitaliy Ball DO Work Phone: [facility] 08-13-2024 11:52-0400 Diastolic blood pressure 71 mm[Hg] Vitaliy Ball DO Work Phone: [facility] 08-13-2024 11:52-0400 Heart rate 85 /min Vitaliy Ball DO Work Phone: [facility] 08-13-2024 11:52-0400 Respiratory rate 18 /min Vitaliy Ball DO Work Phone: [facility] 08-13-2024 11:52-0400 SaO2% (BldA) [Mass fraction] 95 % Vitaliy Ball DO Work Phone: [facility] 08-13-2024 11:52-0400 Systolic blood pressure 107 mm[Hg] Vitaliy Ball DO Work Phone: [facility] 08-13-2024 07:33-0400 Body temperature 97.5 [degF] Vitaliy Ball DO Work Phone: [facility] 08-13-2024 05:12-0400 Body weight 105.5 kg Vitaliy Ball DO Work Phone: [facility] 08-12-2024 15:39-0400 Body height 177.8 cm Vitaliy Ball DO Work Phone: [facility] 08-11-2024 11:49-0400 Diastolic blood pressure 75 mm[Hg] Vitaliy Ball DO Work Phone: [facility] 08-11-2024 11:49-0400 Heart rate 106 /min Vitaliy Ball DO Work Phone: [facility] 08-11-2024 11:49-0400 Systolic blood pressure 118 mm[Hg] Vitaliy Ball DO Work Phone: [facility] 08-11-2024 11:44-0400 Respiratory rate 16 /min Vitaliy Ball DO Work Phone: [facility] 08-11-2024 11:44-0400 SaO2% (BldA) [Mass fraction] 91 % Vitaliy Ball DO Work Phone: [facility] 08-11-2024 10:03-0400 Body height 177.8 cm Vitaliy Ball DO Work Phone: [facility] 08-11-2024 10:03-0400 Body temperature 99.1 [degF] Vitaliy Ball DO Work Phone: [facility] 08-11-2024 10:03-0400 Body weight 107.9 kg Vitaliy Ball DO Work Phone: [facility] 08-06-2024 12:00-0400 Body height 177.8 cm Vitaliy Ball DO Work Phone: [facility] 08-06-2024 12:00-0400 Body mass index (BMI) [Ratio] 33.5 kg/m2 Vitaliy Ball DO Work Phone: [facility] 08-06-2024 12:00-0400 Body weight 106.14 kg Vitaliy Ball DO Work Phone: [facility] 08-01-2024 11:09-0400 Body height 177.8 cm Vitaliy Ball DO Work Phone: [facility] 08-01-2024 11:09-0400 Body temperature 98 [degF] Vitaliy Ball DO Work Phone: [facility] 08-01-2024 11:09-0400 Body weight 106.7 kg Vitaliy Ball DO Work Phone: [facility] 08-01-2024 11:09-0400 Diastolic blood pressure 92 mm[Hg] Vitaliy Ball DO Work Phone: [facility] 08-01-2024 11:09-0400 Heart rate 61 /min Vitaliy Ball DO Work Phone: [facility] 08-01-2024 11:09-0400 Respiratory rate 18 /min Vitaliy Ball DO Work Phone: [facility] 08-01-2024 11:09-0400 SaO2% (BldA) [Mass fraction] 95 % Vitaliy Ball DO Work Phone: [facility] 08-01-2024 11:09-0400 Systolic blood pressure 134 mm[Hg] Vitaliy Ball DO Work Phone: [facility] 07-30-2024 10:00-0400 Body height 180.34 cm Vitaliy Ball DO Work Phone: [facility] 07-30-2024 10:00-0400 Body mass index (BMI) [Ratio] 32.8 kg/m2 Vitaliy Ball DO Work Phone: [facility] 07-30-2024 10:00-0400 Body weight 106.59 kg Vitaliy Ball DO Work Phone: [facility] 07-30-2024 10:00-0400 Diastolic blood pressure 82 mm[Hg] Vitaliy Ball DO Work Phone: [facility] 07-30-2024 10:00-0400 Heart rate 75 /min Vitaliy Ball DO Work Phone: [facility] 07-30-2024 10:00-0400 Respiratory rate 12 /min Vitaliy Ball DO Work Phone: [facility] 07-30-2024 10:00-0400 Systolic blood pressure 116 mm[Hg] Vitaliy Ball DO Work Phone: [facility] 07-01-2024 13:36-0400 Body height 180.34 cm Vitaliy Ball DO Work Phone: [facility] 07-01-2024 13:36-0400 Body mass index (BMI) [Ratio] 33.6 kg/m2 Vitaliy Ball DO Work Phone: [facility] 07-01-2024 13:36-0400 Body weight 109.31 kg Vitaliy Ball DO Work Phone: [facility] 07-01-2024 13:36-0400 Diastolic blood pressure 79 mm[Hg] Vitaliy Ball DO Work Phone: [facility] 07-01-2024 13:36-0400 Heart rate 116 /min Vitaliy Ball DO Work Phone: [facility] 07-01-2024 13:36-0400 Respiratory rate 12 /min Vitaliy Ball DO Work Phone: [facility] 07-01-2024 13:36-0400 Systolic blood pressure 114 mm[Hg] Vitaliy Ball DO Work Phone: [facility] 06-30-2024 09:38-0400 Body mass index (BMI) [Ratio] 33.37 kg/m2 Heladio Pineda MD Work Phone: [facility] 06-30-2024 09:38-0400 Body weight 107 kg Heladio Pineda MD Work Phone: [facility] 06-30-2024 09:38-0400 Diastolic blood pressure 85 mm[Hg] Heladio Pineda MD Work Phone: [facility] 06-30-2024 09:38-0400 Heart rate 81 /min Heladio Pineda MD Work Phone: [facility] 06-30-2024 09:38-0400 Systolic blood pressure 136 mm[Hg] Heladio Pineda MD Work Phone: [facility] 05-02-2024 14:11-0500 Body height 180.34 cm [facility] 05-02-2024 14:11-0500 Body mass index (BMI) [Ratio] 33.2 kg/m2 [facility] 05-02-2024 14:11-0500 Body weight 108.06 kg [facility] 05-02-2024 14:11-0500 Diastolic blood pressure 82 mm[Hg] [facility] 05-02-2024 14:11-0500 Heart rate 111 /min [facility] 05-02-2024 14:11-0500 Respiratory rate 12 /min [facility] 05-02-2024 14:11-0500 Systolic blood pressure 115 mm[Hg] [facility] 03-17-2024 15:30-0500 Body height 180.34 cm [facility] 03-17-2024 15:30-0500 Body mass index (BMI) [Ratio] 32.9 kg/m2 [facility] 03-17-2024 15:30-0500 Body temperature 97.3 [degF] [facility] 03-17-2024 15:30-0500 Body weight 107.16 kg [facility] 03-17-2024 15:30-0500 Diastolic blood pressure 79 mm[Hg] [facility] 03-17-2024 15:30-0500 Heart rate 111 /min [facility] 03-17-2024 15:30-0500 Respiratory rate 12 /min [facility] 03-17-2024 15:30-0500 Systolic blood pressure 118 mm[Hg] [facility] 02-14-2024 13:51-0500 Body height 177.8 cm Daisy Mora MD Work Phone: [facility] 02-14-2024 13:51-0500 Body mass index (BMI) [Ratio] 35.01 kg/m2 Daisy Mora MD Work Phone: [facility] 02-14-2024 13:51-0500 Body weight 110.68 kg Daisy Mora MD Work Phone: [facility] 02-14-2024 13:51-0500 Diastolic blood pressure 80 mm[Hg] Daisy Mora MD Work Phone: [facility] 02-14-2024 13:51-0500 Systolic blood pressure 130 mm[Hg] Daisy Mora MD Work Phone: [facility] 01-29-2024 13:21-0400 Diastolic blood pressure 84 mm[Hg] Bird Kowalski MD Work Phone: [facility] 01-29-2024 13:21-0400 Heart rate 67 /min Bird Kowalski MD Work Phone: [facility] 01-29-2024 13:21-0400 Respiratory rate 15 /min Bird Kowalski MD Work Phone: [facility] 01-29-2024 13:21-0400 SaO2% (BldA) [Mass fraction] 95 % Bird Kowalski MD Work Phone: [facility] 01-29-2024 13:21-0400 Systolic blood pressure 138 mm[Hg] Bird Kowalski MD Work Phone: [facility] 01-29-2024 09:49-0400 Body height 179.1 cm Bird Kowalski MD Work Phone: [facility] 01-29-2024 09:49-0400 Body mass index (BMI) [Ratio] 34.6 kg/m2 Bird Kowalski MD Work Phone: [facility] 01-29-2024 09:49-0400 Body weight 111 kg Bird Kowalski MD Work Phone: [facility] 12-31-2023 13:42-0400 Diastolic blood pressure 84 mm[Hg] DO Vitaliy Ball Work Phone: [facility] 12-31-2023 13:42-0400 Heart rate 70 /min DO Vitaliy Ball Work Phone: [facility] 12-31-2023 13:42-0400 Respiratory rate 16 /min DO Vitaliy Ball Work Phone: [facility] 12-31-2023 13:42-0400 SaO2% (BldA) [Mass fraction] 98 % DO Vitaliy Ball Work Phone: [facility] 12-31-2023 13:42-0400 Systolic blood pressure 135 mm[Hg] DO Vitaliy Ball Work Phone: [facility] 12-31-2023 10:41-0400 Body height 179.07 cm DO Vitaliy Ball Work Phone: [facility] 12-31-2023 10:41-0400 Body weight 105.23 kg DO Vitaliy Ball Work Phone: [facility] 12-19-2023 10:00-0400 Body height 179.1 cm Bird Kowalski MD Work Phone: [facility] 12-19-2023 10:00-0400 Body mass index (BMI) [Ratio] 34.52 kg/m2 Bird Kowalski MD Work Phone: [facility] 12-19-2023 10:00-0400 Body temperature 97.5 [degF] Bird Kowalski MD Work Phone: [facility] 12-19-2023 10:00-0400 Body weight 110.68 kg Bird Kowalski MD Work Phone: [facility] 12-19-2023 10:00-0400 Diastolic blood pressure 77 mm[Hg] Bird Kowalski MD Work Phone: [facility] 12-19-2023 10:00-0400 Heart rate 73 /min Bird Kowalski MD Work Phone: [facility] 12-19-2023 10:00-0400 Respiratory rate 16 /min Bird Kowalski MD Work Phone: [facility] 12-19-2023 10:00-0400 SaO2% (BldA) [Mass fraction] 95 % Bird Kowalski MD Work Phone: [facility] 12-19-2023 10:00-0400 Systolic blood pressure 121 mm[Hg] Bird Kowalski MD Work Phone: [facility] 11-19-2023 14:26-0400 Body height 167.64 cm DO Vitaliy Ball Work Phone: [facility] 11-19-2023 14:26-0400 Body mass index (BMI) [Ratio] 37.8 kg/m2 DO Vitaliy Ball Work Phone: [facility] 11-19-2023 14:26-0400 Body weight 106.31 kg DO Vitaliy Ball Work Phone: [facility] 11-19-2023 14:26-0400 Diastolic blood pressure 85 mm[Hg] DO Vitaliy Ball Work Phone: [facility] 11-19-2023 14:26-0400 Heart rate 80 /min DO Vitaliy Ball Work Phone: [facility] 11-19-2023 14:26-0400 Respiratory rate 12 /min DO Vitaliy Ball Work Phone: [facility] 11-19-2023 14:26-0400 Systolic blood pressure 134 mm[Hg] DO Vitaliy Ball Work Phone: [facility] 10-18-2023 14:32-0400 Body mass index (BMI) [Ratio] 33.95 kg/m2 Daisy Mora MD Work Phone: [facility] 10-18-2023 14:32-0400 Body weight 108.86 kg Daisy Mora MD Work Phone: [facility] 10-18-2023 14:32-0400 Diastolic blood pressure 84 mm[Hg] Daisy Mora MD Work Phone: [facility] 10-18-2023 14:32-0400 Heart rate 82 /min Daisy Mora MD Work Phone: [facility] 10-18-2023 14:32-0400 Systolic blood pressure 132 mm[Hg] Daisy Mora MD Work Phone: [facility] 09-07-2023 13:17-0400 Body height 167.64 cm DO Vitaliy Ball Work Phone: [facility] 09-07-2023 13:17-0400 Body mass index (BMI) [Ratio] 38.5 kg/m2 DO Vitaliy Ball Work Phone: [facility] 09-07-2023 13:17-0400 Body weight 108.12 kg DO Vitaliy Ball Work Phone: [facility] 09-07-2023 13:17-0400 Diastolic blood pressure 91 mm[Hg] DO Vitaliy Ball Work Phone: [facility] 09-07-2023 13:17-0400 Heart rate 78 /min DO Vitaliy Ball Work Phone: [facility] 09-07-2023 13:17-0400 Respiratory rate 12 /min DO Vitaliy Ball Work Phone: [facility] 09-07-2023 13:17-0400 Systolic blood pressure 136 mm[Hg] DO Vitaliy Ball Work Phone: [facility] 09-01-2023 11:29-0400 Body temperature 97.8 [degF] DO Vitaliy Ball Work Phone: [facility] 09-01-2023 11:29-0400 Diastolic blood pressure 80 mm[Hg] DO Vitaliy Ball Work Phone: [facility] 09-01-2023 11:29-0400 Heart rate 88 /min DO Vitaliy Ball Work Phone: [facility] 09-01-2023 11:29-0400 Respiratory rate 16 /min DO Vitaliy Ball Work Phone: [facility] 09-01-2023 11:29-0400 SaO2% (BldA) [Mass fraction] 98 % DO Vitaliy Ball Work Phone: [facility] 09-01-2023 11:29-0400 Systolic blood pressure 140 mm[Hg] DO Vitaliy Ball Work Phone: [facility] 09-01-2023 05:17-0400 Body weight 113 kg DO Vitaliy Ball Work Phone: [facility] 08-31-2023 13:01-0400 Body height 177.8 cm DO Vitaliy Ball Work Phone: [facility] 08-30-2023 22:00-0400 Diastolic blood pressure 67 mm[Hg] DO Vitaliy Ball Work Phone: [facility] 08-30-2023 22:00-0400 Heart rate 86 /min DO Vitaliy Ball Work Phone: [facility] 08-30-2023 22:00-0400 Respiratory rate 21 /min DO Vitaliy Ball Work Phone: [facility] 08-30-2023 22:00-0400 SaO2% (BldA) [Mass fraction] 93 % DO Vitaliy Ball Work Phone: [facility] 08-30-2023 22:00-0400 Systolic blood pressure 107 mm[Hg] DO Vitaliy Ball Work Phone: [facility] 08-30-2023 20:00-0400 Body temperature 99.8 [degF] DO Vitaliy Ball Work Phone: [facility] 08-30-2023 16:29-0400 Body height 177.8 cm DO Vitaliy Ball Work Phone: [facility] 08-30-2023 16:290400 Body weight 105.23 kg DO Vitalyi Ball Work Phone: [facility] 08-16-2023 11:36-0400 Body height 179.1 cm [facility] 08-16-2023 11:36-0400 Body mass index (BMI) [Ratio] 34.52 kg/m2 [facility] 08-16-2023 11:36-0400 Body weight 110.68 kg [facility] 08-16-2023 11:36-0400 Diastolic blood pressure 74 mm[Hg] [facility] 08-16-2023 11:36-0400 Heart rate 75 /min [facility] 08-16-2023 11:36-0400 Systolic blood pressure 124 mm[Hg] [facility] 08-02-2023 09:29-0400 Inhaled oxygen flow rate 3 L/min DO Vitaliy Ball Work Phone: [facility] 08-02-2023 09:29-0400 SaO2% (BldA) [Mass fraction] 95 % DO Vitaliy Ball Work Phone: [facility] 08-01-2023 13:58-0400 Body height 177.8 cm DO Vitaliy Ball Work Phone: [facility] 08-01-2023 13:58-0400 Body weight 111 kg DO Vitaliy Ball Work Phone: [facility] 07-27-2023 11:14-0400 Diastolic blood pressure 80 mm[Hg] Daisy Mora MD Work Phone: [facility] 07-27-2023 11:14-0400 Systolic blood pressure 110 mm[Hg] Daisy Mora MD Work Phone: [facility] 07-27-2023 11:13-0400 Body height 177.8 cm Daisy Mora MD Work Phone: [facility] 07-27-2023 11:13-0400 Body mass index (BMI) [Ratio] 35.15 kg/m2 Daisy Mora MD Work Phone: [facility] 07-27-2023 11:13-0400 Body weight 111.13 kg Daisy Mora MD Work Phone: [facility] [facility] 07-27-2023 11:13-0400 Heart rate 91 /min Daisy Mora MD Work Phone: [facility] 06-29-2023 10:00-0400 Body height 177.8 cm DO Vitaliy Ball Work Phone: [facility] 06-29-2023 10:00-0400 Body mass index (BMI) [Ratio] 35.7 kg/m2 DO Vitaliy Ball Work Phone: [facility] 06-29-2023 10:00-0400 Body weight 113.11 kg DO Vitaliy Ball Work Phone: [facility] 06-29-2023 10:00-0400 Diastolic blood pressure 84 mm[Hg] DO Vitaliy Ball Work Phone: [facility] 06-29-2023 10:00-0400 Heart rate 86 /min DO Vitaliy Ball Work Phone: [facility] 06-29-2023 10:00-0400 Respiratory rate 12 /min DO Vitaliy Ball Work Phone: [facility] 06-29-2023 10:00-0400 Systolic blood pressure 119 mm[Hg] DO Vitaliy Ball Work Phone: [facility] 06-04-2023 14:08-0500 Body height 177.8 cm Sarai Velasco MD Work Phone: [facility] 06-04-2023 14:08-0500 Body mass index (BMI) [Ratio] 34.15 kg/m2 Sarai Velasco MD Work Phone: [facility] 06-04-2023 14:08-0500 Body weight 107.96 kg Sarai Velasco MD Work Phone: [facility] 06-04-2023 14:08-0500 Diastolic blood pressure 80 mm[Hg] Sarai Velasco MD Work Phone: [facility] 06-04-2023 14:08-0500 Heart rate 94 /min Sarai Velasco MD Work Phone: [facility] 06-04-2023 14:08-0500 SaO2% (BldA) [Mass fraction] 94 % Sarai Velasco MD Work Phone: [facility] 06-04-2023 14:08-0500 Systolic blood pressure 114 mm[Hg] Sarai Velasco MD Work Phone: [facility] 05-07-2023 11:00-0500 Body height 177.8 cm Sukhjinder Montesinos Other [facility] 05-07-2023 11:00-0500 Body mass index (BMI) [Ratio] 34.72 kg/m2 Sukhjinder Montesinos Other [facility] [employer] Other 05-07-2023 11:00-0500 Body weight 109.76 kg DO Vitaliy Ball Work Phone: [facility] 05-07-2023 11:00-0500 Body weight 109.77 kg Sukhjinder Montesinos Other [facility] [employer] Other 05-02-2023 10:45-0500 Body height 177.8 cm Vitaliy Ball Other [facility] 05-02-2023 10:45-0500 Body mass index (BMI) [Ratio] 34.72 kg/m2 Vitaliy Ball Other [facility] [employer] Other 05-02-2023 10:45-0500 Body weight 109.77 kg Vitaliy Ball Other [facility] [employer] Other 05-02-2023 10:45-0500 Body weight 109.76 kg DO Vitaliy Ball Work Phone: [facility] 05-02-2023 10:45-0500 Diastolic blood pressure 85 mm[Hg] Vitaliy Ball Other [facility] 05-02-2023 10:45-0500 Respiratory rate 12 /min Vitaliy Ball Other [facility] [employer] Other 05-02-2023 10:45-0500 Systolic blood pressure 122 mm[Hg] Vitaliy Ball Other [facility] 04-05-2023 10:15-0500 Body height 177.8 cm Vitaliy Ball Other [facility] 04-05-2023 10:15-0500 Body mass index (BMI) [Ratio] 34.29 kg/m2 Vitaliy Ball Other [facility] [employer] Other 04-05-2023 10:15-0500 Body weight 108.41 kg Vitaliy Ball Other [facility] [employer] Other 04-05-2023 10:15-0500 Body weight 108.4 kg DO Vitaliy Ball Work Phone: [facility] 04-05-2023 10:15-0500 Diastolic blood pressure 58 mm[Hg] Vitaliy Ball Other [facility] 04-05-2023 10:15-0500 Respiratory rate 12 /min Vitaliy Ball Other [facility] [employer] Other 04-05-2023 10:15-0500 Systolic blood pressure 88 mm[Hg] Vitaliy Ball Other [facility] 03-15-2023 11:15-0500 Body height 177.8 cm Sukhjinder Montesinos Other [facility] 03-15-2023 11:15-0500 Body mass index (BMI) [Ratio] 34.29 kg/m2 Sukhjinder Montesinos Other [facility] [employer] Other 03-15-2023 11:15-0500 Body weight 108.41 kg Sukhjinder Montesinos Other [facility] [employer] Other 03-15-2023 11:15-0500 Body weight 108.4 kg DO Vitaliy Ball Work Phone: [facility] 03-05-2023 13:28-0500 Body weight 106.59 kg Heladio Pineda MD Work Phone: [facility] 03-05-2023 13:28-0500 Diastolic blood pressure 81 mm[Hg] Heladio Pineda MD Work Phone: [facility] 03-05-2023 13:28-0500 Heart rate 110 /min Heladio Pineda MD Work Phone: [facility] 03-05-2023 13:28-0500 Systolic blood pressure 124 mm[Hg] Heladio Pineda MD Work Phone: [facility] 02-13-2023 15:00-0500 Diastolic blood pressure 68 mm[Hg] DO Vitaliy Ball Work Phone: [facility] 02-13-2023 15:00-0500 Heart rate 75 /min DO Vitaliy Ball Work Phone: [facility] 02-13-2023 15:00-0500 Respiratory rate 16 /min DO Vitaliy Ball Work Phone: [facility] 02-13-2023 15:00-0500 SaO2% (BldA) [Mass fraction] 94 % DO Vitaliy Ball Work Phone: [facility] 02-13-2023 15:00-0500 Systolic blood pressure 111 mm[Hg] DO Vitaliy Ball Work Phone: [facility] 02-13-2023 11:45-0500 Inhaled oxygen flow rate 1 L/min DO Vitaliy Ball Work Phone: [facility] 02-13-2023 10:48-0500 Body temperature 99.2 [degF] DO Vitaliy Ball Work Phone: [facility] 02-13-2023 06:59-0500 Body height 179.07 cm DO Vitaliy Ball Work Phone: [facility] 02-13-2023 06:59-0500 Body mass index (BMI) [Ratio] 34 kg/m2 DO Vitaliy Ball Work Phone: [facility] 02-13-2023 06:59-0500 Body weight 109 kg DO Vitaliy Ball Work Phone: [facility] 01-24-2023 15:15-0400 Body height 177.8 cm Vitaliy Ball Other [facility] [employer] Other 01-24-2023 15:15-0400 Body mass index (BMI) [Ratio] 34.32 kg/m2 Vitaliy Ball Other [facility] [employer] Other 01-24-2023 15:15-0400 Body weight 108.5 kg Vitaliy Ball Other [employer] Other 01-24-2023 15:15-0400 Diastolic blood pressure 69 mm[Hg] Vitaliy Ball Other [facility] [employer] Other 01-24-2023 15:15-0400 Respiratory rate 12 /min Vitaliy Ball Other [employer] Other 01-24-2023 15:15-0400 Systolic blood pressure 107 mm[Hg] Vitaliy Ball Other [employer] Other 01-05-2023 10:55-0400 Body height 179.1 cm Heladio Pineda MD Work Phone: [facility] 01-05-2023 10:55-0400 Body weight 107.5 kg Heladio Pineda MD Work Phone: [facility] 01-05-2023 10:55-0400 Diastolic blood pressure 74 mm[Hg] Heladio Pineda MD Work Phone: [facility] 01-05-2023 10:55-0400 Heart rate 71 /min Heladio Pineda MD Work Phone: [facility] 01-05-2023 10:55-0400 Systolic blood pressure 143 mm[Hg] Heladio Pineda MD Work Phone: [facility] 01-02-2023 10:30-0400 Body height 177.8 cm Vitaliy Ball Other [employer] Other 01-02-2023 10:30-0400 Body mass index (BMI) [Ratio] 34.4 kg/m2 Vitaliy Ball Other [employer] Other 01-02-2023 10:30-0400 Body weight 108.77 kg Vitaliy Ball Other [employer] Other 01-02-2023 10:30-0400 Diastolic blood pressure 78 mm[Hg] Vitaliy Ball Other [employer] Other 01-02-2023 10:30-0400 Respiratory rate 12 /min Vitaliy Ball Other [employer] Other 01-02-2023 10:30-0400 Systolic blood pressure 120 mm[Hg] Vitaliy Ball Other [employer] Other 11-13-2022 15:15-0400 Body height 177.8 cm Vitaliy Ball Other [employer] Other 11-13-2022 15:15-0400 Body mass index (BMI) [Ratio] 33.86 kg/m2 Vitaliy Ball Other [employer] Other 11-13-2022 15:15-0400 Body weight 107.05 kg Vitaliy Ball Other [employer] Other 11-13-2022 15:15-0400 Diastolic blood pressure 75 mm[Hg] Vitaliy Ball Other [employer] Other 11-13-2022 15:15-0400 Respiratory rate 12 /min Vitaliy Ball Other [employer] Other 11-13-2022 15:15-0400 Systolic blood pressure 112 mm[Hg] Vitaliy Ball Other [employer] Other 10-25-2022 14:45-0400 Body height 177.8 cm Vitaliy Ball Other [employer] Other 10-25-2022 14:45-0400 Body mass index (BMI) [Ratio] 35.24 kg/m2 Vitaliy Ball Other [employer] Other 10-25-2022 14:45-0400 Body weight 111.4 kg Vitaliy Ball Other [employer] Other 10-25-2022 14:45-0400 Diastolic blood pressure 76 mm[Hg] Vitaliy Ball Other [employer] Other 10-25-2022 14:45-0400 Respiratory rate 12 /min Vitaliy Ball Other [employer] Other 10-25-2022 14:45-0400 Systolic blood pressure 112 mm[Hg] Vitaliy Ball Other [employer] Other 10-11-2022 15:50-0400 Diastolic blood pressure 67 mm[Hg] DO Vitalyi Ball Work Phone: [facility] 10-11-2022 15:50-0400 Heart rate 75 /min DO Vitaliy Ball Work Phone: [facility] 10-11-2022 15:50-0400 Respiratory rate 20 /min DO Vitaliy Ball Work Phone: [facility] 10-11-2022 15:50-0400 SaO2% (BldA) [Mass fraction] 95 % DO Vitaliy Ball Work Phone: [facility] 10-11-2022 15:50-0400 Systolic blood pressure 110 mm[Hg] DO Vitaliy Ball Work Phone: [facility] 10-03-2022 08:30-0400 Body height 177.8 cm Vitaliy Ball Other [facility] [employer] Other 10-03-2022 08:30-0400 Body mass index (BMI) [Ratio] 36.01 kg/m2 Vitaliy Ball Other [facility] [employer] Other 10-03-2022 08:30-0400 Body weight 113.85 kg Vitaliy Ball Other [facility] [employer] Other 10-03-2022 08:30-0400 Diastolic blood pressure 86 mm[Hg] Vitaliy Ball Other [facility] [employer] Other 10-03-2022 08:30-0400 Respiratory rate 12 /min Vitaliy Ball Other [employer] Other 10-03-2022 08:30-0400 Systolic blood pressure 133 mm[Hg] Vitaliy Ball Other [employer] Other 08-09-2022 10:00-0400 Body height 177.8 cm Vitaliy Ball Other [employer] Other 08-09-2022 10:00-0400 Body mass index (BMI) [Ratio] 36.21 kg/m2 Vitaliy Ball Other [employer] Other 08-09-2022 10:00-0400 Body weight 114.49 kg Vitaliy Ball Other [employer] Other 08-09-2022 10:00-0400 Diastolic blood pressure 68 mm[Hg] Vitaliy Ball Other [employer] Other 08-09-2022 10:00-0400 SaO2% (BldA) [Mass fraction] 94 % Vitaliy Ball Other [employer] Other 08-09-2022 10:00-0400 Systolic blood pressure 121 mm[Hg] Vitaliy Ball Other [employer] Other 07-28-2022 10:30-0400 Body height 177.8 cm Vitaliy Ball Other [employer] Other 07-28-2022 10:30-0400 Body mass index (BMI) [Ratio] 36.67 kg/m2 Vitaliy Ball Other [employer] Other 07-28-2022 10:30-0400 Body weight 115.94 kg Vitaliy Ball Other [employer] Other 07-28-2022 10:30-0400 Diastolic blood pressure 76 mm[Hg] Vitaliy Ball Other [employer] Other 07-28-2022 10:30-0400 Respiratory rate 16 /min Vitaliy Ball Other [employer] Other 07-28-2022 10:30-0400 Systolic blood pressure 122 mm[Hg] Vitaliy Ball Other [employer] Other 05-23-2022 15:15-0500 Body height 177.8 cm Vitaliy Ball Other [employer] Other 05-23-2022 15:15-0500 Body mass index (BMI) [Ratio] 37.47 kg/m2 Vitaliy Ball Other [employer] Other 05-23-2022 15:15-0500 Body weight 118.48 kg Vitaliy Ball Other [employer] Other 05-23-2022 15:15-0500 Diastolic blood pressure 72 mm[Hg] Vitaliy Ball Other [employer] Other 05-23-2022 15:15-0500 Respiratory rate 12 /min Vitaliy Ball Other [employer] Other 05-23-2022 15:15-0500 Systolic blood pressure 122 mm[Hg] Vitaliy Ball Other [employer] Other 05-22-2022 14:01-0500 Body height 177.8 cm DO Vitaliy Ball Work Phone: [facility] 05-22-2022 14:01-0500 Body temperature 99 [degF] DO Vitaliy Ball Work Phone: [facility] 05-22-2022 14:01-0500 Body weight 116.95 kg DO Vitaliy Ball Work Phone: [facility] 05-22-2022 14:01-0500 Diastolic blood pressure 96 mm[Hg] DO Vitaliy Ball Work Phone: [facility] 05-22-2022 14:01-0500 Heart rate 77 /min DO Vitaliy Ball Work Phone: [facility] 05-22-2022 14:01-0500 Respiratory rate 18 /min DO Vitaliy Ball Work Phone: [facility] 05-22-2022 14:01-0500 SaO2% (BldA) [Mass fraction] 95 % DO Vitaliy Ball Work Phone: [facility] 05-22-2022 14:01-0500 Systolic blood pressure 163 mm[Hg] DO Vitaliy Ball Work Phone: [facility] 02-15-2022 15:00-0500 Body height 177.8 cm Chio Nichole Other [employer] Other 02-15-2022 15:00-0500 Body mass index (BMI) [Ratio] 34.15 kg/m2 Chio Nichole Other [employer] Other 02-15-2022 15:00-0500 Body weight 107.96 kg Chio Nichole Other [employer] Other 02-13-2022 11:00-0500 Body height 177.8 cm Jonathan Samano Other [employer] Other 09-28-2021 12:15-0400 Body height 177.8 cm Sarai [place] Other [employer] Other 06-17-2021 09:15-0500 Body height 177.8 cm Sarai [place] Other [employer] Other 06-17-2021 09:15-0500 Body mass index (BMI) [Ratio] 34.15 kg/m2 Sarai [place] Other [employer] Other 06-17-2021 09:15-0500 Body weight 107.96 kg Sarai [place] Other [employer] Other 02-22-2021 15:45-0500 Body height 177.8 cm Jonathan Felter Other [employer] Other 02-22-2021 15:45-0500 Body mass index (BMI) [Ratio] 34.43 kg/m2 Jonathan Felter Other [employer] Other 02-22-2021 15:45-0500 Body weight 108.86 kg Jonathan Felter Other [employer] Other 01-05-2021 10:45-0400 Body height 177.8 cm Jonathan Felter Other [employer] Other 01-05-2021 10:45-0400 Body mass index (BMI) [Ratio] 34.43 kg/m2 Jonathan Felter Other [employer] Other 01-05-2021 10:45-0400 Body weight 108.86 kg Jonathan Felter Other [employer] Other Encounters Encounter Date Encounter Type Care Provider Facility Start: 09-26-2024 End: 09-26-2024 ambulatory Heladio Pineda MD Work Phone: Rheumatology Comment on above: Pseudogout involving multiple joints (Primary Dx); Idiopathic chronic gout of multiple sites without tophus; Secondary osteoarthritis of multiple sites; PMR (polymyalgia rheumatica) (HCC); CHENCHO positive; Bilateral hand pain; Long-term use of high-risk medication; Chronic hip pain, bilateral; Rotator cuff arthropathy of left shoulder; manager terminal current use of 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; Bilateral hand swelling; Chronic pain of both knees; Leg weakness, bilateral; Chronic bilateral low back pain without sciatica; Bilateral knee swelling Start: 09-26-2024 End: 09-26-2024 Telemedicine consultation with patient Heladio Pineda MD Work Phone: Rheumatology Start: 09-13-2024 End: 09-26-2024 Telephone encounter Heladio Pineda MD Work Phone: Rheumatology Comment on above: Orders; Appointment Start: 09-13-2024 End: 09-13-2024 Patient encounter procedure Heladio Pineda MD Work Phone: Rheumatology Comment on above: Idiopathic chronic g out of multiple sites without tophus (Primary Dx); Pseudogout involving multiple joints; Chronic pain of both knees; Vitamin D deficiency; Secondary osteoarthritis of multiple sites; PMR (polymyalgia rheumatica) ([facility]); CHENCHO positive; Bilateral hand pain; Long-term use of high-risk medication; Chronic hip pain, bilateral Start: 09-13-2024 End: 09-13-2024 Telemedicine consultation with patient Heladio Pineda MD Work Phone: Rheumatology Start: 09-13-2024 End: 09-15-2024 ambulatory HELADIO PINEDA Facility:[facility] Start: 09-09-2024 End: 09-09-2024 Admission to same day surgery center Vitaliy Brower DO Work Phone: [facility] Work Phone: Start: 09-09-2024 End: 09-09-2024 ambulatory Vitaliy Brower DO Work Phone: [facility] Work Phone: Start: 08-31-2024 End: 09-02-2024 Telephone encounter Heladio Pineda MD Work Phone: Rheumatology Comment on above: Orders; Appointment Start: 08-22-2024 End: 08-22-2024 Office outpatient visit 25 minutes Daisy Mora MD Work Phone: [facility] Comment on above: Persistent atrial fi brillation (Multi) (Primary Dx); Multi-vessel coronary artery stenosis; Status post aorto-coronary artery bypass graft; Mixed hyperlipidemia; Dilated aortic root (CMS-HCC); Cardiomyopathy, ischemic; Presence of Watchman left atrial appendage closure device; BMI 32.0-32.9,adult; Never smoked cigarettes Start: 08-22-2024 End: 08-22-2024 ambulatory [facility] Ambulatory Start: 08-19-2024 End: 08-19-2024 ambulatory Vitaliy Ball DO Work Phone: [facility] Work Phone: Start: 08-19-2024 End: 08-19-2024 Patient encounter procedure Vitaliy Ball DO Work Phone: [facility] Physician [facility] Work Phone: Start: 08-12-2024 Non-patient / Non-visit Benjam in Ball DO Work Phone: [facility] Physician [facility][Note 3] Cardiology Work Phone: Start: 08-12-2024 Non-patient / Non-visit Benjam in Ball DO Work Phone: [facility] Physician [facility] Work Phone: Start: 08-11-2024 End: 08-13-2024 ambulatory Mary Ann Mischler Facility:[facility] Start: 08-11-2024 End: 08-13-2024 Evaluation and management of inpatient Vitaliy Ball DO Work Phone: [facility] [place] [facility] Work Phone: Start: 08-11-2024 observation encounter Vitaliy Ball DO Work Phone: [facility] Work Phone: Start: 08-06-2024 End: 08-06-2024 ambulatory Vitaliy Ball DO Work Phone: [facility] Work Phone: Start: 08-06-2024 End: 08-06-2024 Patient encounter procedure Vitaliy Ball DO Work Phone: [facility] Physician [facility] Orthopedics Work Phone: Start: 08-04-2024 End: 08-04-2024 Patient encounter procedure Vitaliy Ball DO Work Phone: [facility] Physician [facility][Note 3] Orthopedics Work Phone: Start: 08-04-2024 End: 08-04-2024 ambulatory Vitaliy Ball DO Work Phone: [facility] Work Phone: Start: 08-01-2024 End: 08-01-2024 Emergency department patient visit Vitaliy Brower DO Work Phone: [facility]-Emergency Room Work Phone: Start: 07-30-2024 End: 07-30-2024 ambulatory Vitaliy Brower DO Work Phone: [facility] Work Phone: Start: 07-30-2024 End: 07-30-2024 Patient encounter procedure Vitaliy Brower DO Work Phone: [facility] Physician Group-[facility] Work Phone: Start: 07-07-2024 End: 07-07-2024 Telephone encounter Heladio Pineda MD Work Phone: Rheumatology Comment on above: Results Start: 07-01-2024 End: 07-01-2024 ambulatory Vitaliy Ball DO Work Phone: [facility] Work Phone: Start: 07-01-2024 End: 07-01-2024 Patient encounter procedure Vitaliy Brower DO Work Phone: [facility] Work Phone: Start: 06-30-2024 Non-patient / Non-visit Donal in Inocente DO Work Phone: [facility] Work Phone: Start: 06-30-2024 End: 06-30-2024 ambulatory HELADIO PINEDA Facility:[facility] Start: 06-30-2024 End: 06-30-2024 Patient encounter procedure Heladio Pineda MD Work Phone: Rheumatology Comment on above: PMR (polymyalgia rhe umatica) (HCC) (Primary Dx); Elevated LFTs; Anemia of chronic disease; Elevated sed rate; Elevated C-reactive protein (CRP); Vitamin D deficiency; Hyperuricemia; Idiopathic chronic gout of multiple sites without tophus; Secondary osteoarthritis of multiple sites; Pseudogout involving multiple joints; manager terminal current use of 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; Chronic pain of both knees; CHENCHO positive; Bilateral hand pain; Bilateral hand swelling; Bilateral arm weakness; Leg weakness, bilateral; Rotator cuff arthropathy of left shoulder; Long-term use of high-risk medication Start: 06-13-2024 End: 06-13-2024 Subsequent hospital visit by physician [id number] [facility] Comment on above: Atrial fibrillation, unspecified type (Multi) Start: 06-13-2024 End: 06-13-2024 ambulatory [facility] Start: 05-29-2024 End: 05-29-2024 Patient encounter procedure Vitaliy Brower DO Work Phone: [facility] [place] Work Phone: Start: 05-29-2024 End: 05-29-2024 ambulatory Vitaliy Ball DO Work Phone: [facility] Work Phone: Start: 05-02-2024 End: 05-02-2024 ambulatory [facility] Work Phone: Start: 05-02-2024 End: 05-02-2024 Patient encounter procedure [facility] Work Phone: Start: 04-22-2024 Non-patient / Non-visit [facility] Work Phone: Start: 04-02-2024 End: 04-08-2024 Refill Sarai Velasco MD Work Phone: [facility] Comment on above: Med Refill Start: 03-17-2024 End: 03-17-2024 Patient encounter procedure [facility] Work Phone: Start: 02-18-2024 End: 02-18-2024 ambulatory Vitaliy Ball DO Work Phone: [facility] Work Phone: Start: 02-18-2024 End: 02-18-2024 Patient encounter procedure Vitaliy Brower DO Work Phone: [facility] Physician [facility] Orthopedics Work Phone: Start: 02-14-2024 End: 02-14-2024 Office outpatient visit 25 minutes Daisy Mora MD Work Phone: [facility] Comment on above: Persistent atrial fi brillation (Multi) (Primary Dx); Status post aorto-coronary artery bypass graft; Presence of Watchman left atrial appendage closure device; Multi-vessel coronary artery stenosis; Mixed hyperlipidemia; Cardiomyopathy, ischemic; Dilated aortic root (CMS-HCC); Never smoked cigarettes; BMI 35.0-35.9,adult Start: 02-14-2024 End: 02-14-2024 ambulatory [facility] Ambulatory Start: 02-12-2024 End: 02-12-2024 ambulatory DO Vitaliy Brower Work Phone: [facility] Work Phone: Start: 02-12-2024 End: 02-12-2024 Patient encounter procedure DO Vitaliy Brower Work Phone: [facility] Physician [facility] Work Phone: Start: 01-29-2024 End: 01-29-2024 Preprocedural examination done Bird Kowalski MD Work Phone: [facility] Work Phone: Start: 01-29-2024 End: 01-29-2024 Evaluation and management of inpatient Bird Kowalski MD Work Phone: [facility] Comment on above: Atrial fibrillation, unspecified type (Multi) (Primary Dx); Preoperative examination; Presence of Watchman left atrial appendage closure device Start: 01-28-2024 Encounter for other preprocedural examination BIRD KOWALSKI [facility] Start: 01-28-2024 Evaluation and management of inpatient BIRD KOWALSKI [facility] Start: 01-24-2024 End: 01-24-2024 Patient encounter procedure DO Vitaliy Brower Work Phone: [facility] [place] Work Phone: Start: 01-24-2024 End: 01-24-2024 ambulatory DO Vitaliy Brower Work Phone: [facility] Work Phone: Start: 12-31-2023 Non-patient / Non-visit DO Eris Brower Work Phone: [facility] Work Phone: Start: 12-31-2023 Non-patient / Non-visit DO Eris Brower Work Phone: [facility] Gastro[facility]ology Work Phone: Start: 12-31-2023 End: 12-31-2023 Admission to same day surgery center DO Vitaliy Brower Work Phone: [facility] Work Phone: Start: 12-31-2023 End: 12-31-2023 ambulatory DO Vitaliy Brower Work Phone: [facility] Work Phone: Start: 12-30-2023 Evaluation and management of inpatient BIRD J [facility] Start: 12-19-2023 End: 12-19-2023 Office outpatient new 45 minutes Bird Kowalski MD Work Phone: [facility] Comment on above: Paroxysmal atrial fi brillation (Multi) (Primary Dx); Persistent atrial fibrillation (Multi) Start: 12-19-2023 End: 12-19-2023 ambulatory [facility] Start: 12-13-2023 End: 2023 Refill Heladio Pineda MD Work Phone: Rheumatology Comment on above: Refill Request Start: 11-21-2023 Non-patient / Non-visit DO Eris Brower Work Phone: [facility] Work Phone: Start: 11-19-2023 End: 11-19-2023 ambulatory DO Vitaliy Brower Work Phone: [facility] Work Phone: Start: 11-19-2023 End: 11-19-2023 Encounter for general adult medical examination without abnormal findings DO Vitaliy Brower Work Phone: [facility] Start: 11-19-2023 End: 11-19-2023 Patient encounter procedure DO Vitaliy Brower Work Phone: [facility] Work Phone: Start: 10-18-2023 End: 10-18-2023 Office outpatient visit 25 minutes Daisy Mora MD Work Phone: [facility] Comment on above: Persistent atrial fi brillation (Multi) (Primary Dx); Status post aorto-coronary artery bypass graft; Mixed hyperlipidemia; Cardiomyopathy, ischemic; Multi-vessel coronary artery stenosis; BMI 35.0-35.9,adult; Never smoked cigarettes Start: 10-18-2023 End: 10-18-2023 ambulatory [facility] Start: 10-02-2023 End: 10-02-2023 ambulatory DO Vitaliy Brower Work Phone: [facility] Work Phone: Start: 10-02-2023 End: 10-02-2023 Patient encounter procedure DO Vitaliy Brower Work Phone: [facility] Work Phone: Start: 09-19-2023 End: 09-19-2023 ambulatory SANTOS CABRERA Not Available Start: 09-09-2023 Telephone encounter Heladio alvarado MD Work Phone: Rheumatology Comment on above: Results Start: 09-07-2023 End: 09-07-2023 ambulatory DO Vitaliy Brower Work Phone: [facility] Work Phone: Start: 09-07-2023 End: 09-07-2023 Patient encounter procedure DO Vitaliy Brower Work Phone: [facility] Work Phone: Start: 09-07-2023 Non-patient / Non-visit DO Eris Brower Work Phone: [facility] Work Phone: Start: 09-05-2023 Refill Heladio Pineda MD Work Phone: Rheumatology Comment on above: Refill Request Start: 09-05-2023 Non-patient / Non-visit DO Eris Brower Work Phone: [facility] Work Phone: Start: 08-30-2023 End: 09-01-2023 Evaluation and management of inpatient DO Vitaliy Brower Work Phone: [facility] [place] [facility] Work Phone: Start: 08-16-2023 End: 08-16-2023 Professional / ancillary services management Ky Navarro MA [facility] Comment on above: Paroxysmal atrial fi brillation (Multi) Start: 08-02-2023 End: 08-02-2023 Admission to same day surgery center DO Vitaliy Brower Work Phone: [facility] Work Phone: Start: 08-02-2023 End: 08-02-2023 ambulatory DO Vitaliy Brower Work Phone: [facility] Work Phone: Start: 07-27-2023 End: 07-27-2023 Office outpatient new 60 minutes Daisy Mora MD Work Phone: [facility] Comment on above: Persistent atrial fi brillation (Multi) (Primary Dx); Multi-vessel coronary artery stenosis; Cardiomyopathy, ischemic; Mixed hyperlipidemia; 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 (Multi); Status post aorto-coronary artery bypass graft; 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; BMI 35.0-35.9,adult Start: 07-09-2023 Telephone encounter Heladio alvarado MD Work Phone: Rheumatology Comment on above: Results Start: 07-05-2023 Non-patient / Non-visit DO Eris Brower Work Phone: [facility] Work Phone: Start: 06-30-2023 Telephone encounter Heladio alvarado MD Work Phone: Rheumatology Comment on above: Results; Orders Start: 06-29-2023 End: 06-29-2023 ambulatory DO Vitaliy Brower Work Phone: [facility] Work Phone: Start: 06-29-2023 End: 06-29-2023 Patient encounter procedure DO Vitaliy Brower Work Phone: [facility] Work Phone: Start: 06-28-2023 ambulatory UNKNOWN PROVIDER Facili ty:[facility] Start: 06-28-2023 End: 06-28-2023 Subsequent hospital visit by physician Bone Density [facility] Comment on above: 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, T38.0X5A] Start: 06-20-2023 End: 06-20-2023 Patient encounter procedure DO Vitaliy Brower Work Phone: [facility] Work Phone: Start: 06-14-2023 Telephone encounter Kamille Rosario RN [facility] Start: 06-12-2023 End: 06-13-2023 ambulatory CHHAYA Huber [facility] Start: 06-11-2023 Telephone encounter Ambar Figueroa LPN [facility] Comment on above: EP Surgery ( Pt Educ ation) Start: 06-06-2023 End: 06-06-2023 Patient encounter procedure DO Vitaliy Brower Work Phone: [facility] Work Phone: Start: 06-04-2023 End: 06-04-2023 ambulatory SARAI VELASCO [facility] Start: 06-04-2023 End: 06-04-2023 Office outpatient visit 40 minutes Sarai Velasco MD Work Phone: [facility] Comment on above: Persistent atrial fi brillation (CMS-HCC) (Primary Dx); Coronary artery disease involving [place] coronary artery of [place] heart without angina pectoris Start: 06-04-2023 Telephone encounter [facility]ar [facility] Comment on above: EP Surgery (CDVN) Start: 06-04-2023 Non-patient / Non-visit DO Eris franklin Ball Work Phone: [facility] Work Phone: Start: 06-01-2023 Telephone encounter Melinda leos [facility] Start: 05-21-2023 End: 05-21-2023 ambulatory DO Vitaliy Ball Work Phone: [facility] Work Phone: Start: 05-21-2023 End: 05-21-2023 Patient encounter procedure DO Vitaliy Ball Work Phone: [facility] [place] Work Phone: Start: 05-21-2023 End: 05-21-2023 Patient encounter procedure DO Vitaliy Ball Work Phone: [facility] Start: 05-21-2023 End: 05-21-2023 ambulatory DO Vitaliy Ball Work Phone: [facility] Work Phone: Start: 05-21-2023 Office outpatient vi sit 15 minutes Melinda Verduzco [facility] Start: 05-21-2023 Telephone encounter Sarai Mendez II [facility] Start: 05-18-2023 End: 05-18-2023 ambulatory Vitaliy Ball Other [facility] Other Start: 05-18-2023 Telephone encounter Vitaliy Brower [facility] Start: 05-16-2023 Office outpatient vi sit 15 minutes Sarai Andrea II [facility] Start: 05-16-2023 End: 05-16-2023 ambulatory DO Vitaliy Ball Work Phone: [facility] Work Phone: Start: 05-16-2023 End: 05-16-2023 Patient encounter procedure DO Vitaliy Ball Work Phone: [facility] Start: 05-07-2023 End: 05-07-2023 ambulatory Sukhjinder Yamel Other [facility] Other Start: 05-07-2023 Office outpatient vi sit 25 minutes Sukhjinder Yamel [facility] Start: 05-07-2023 End: 05-07-2023 Patient encounter procedure DO Vitaliy Ball Work Phone: [facility]- Start: 05-02-2023 End: 05-02-2023 ambulatory Vitaliy Ball Other [facility] Other Start: 05-02-2023 Office outpatient vi sit 15 minutes Vitaliy Ball [facility] Start: 05-02-2023 End: 05-02-2023 Patient encounter procedure DO Vitaliy Ball Work Phone: [facility]- Start: 04-18-2023 End: 04-19-2023 Emergency department patient visit THERESA PRAKASH [facility] Start: 04-18-2023 Telephone encounter Florence Fermin RN [facility] Start: 04-12-2023 End: 04-12-2023 ambulatory Vitaliy Ball Other [employer] Other Start: 04-12-2023 Office outpatient vi sit 15 minutes Vitaliy Ball [facility] Start: 04-12-2023 Patient encounter procedure DO Vitaliy Ball Work Phone: [facility]- Start: 04-11-2023 End: 04-11-2023 ambulatory Sarai [place] II Other [facility] Other Start: 04-11-2023 Postop follow up vis it related to original px Sarai Andrea II [facility] Start: 04-06-2023 End: 04-06-2023 ambulatory Vitaliy Ball Other [facility] Other Start: 04-06-2023 Telephone encounter Vitaliy Ball FP [facility] Start: 04-05-2023 End: 04-05-2023 ambulatory Vitaliy Ball Other [employer] Other Start: 04-05-2023 Office outpatient vi sit 15 minutes Vitaliy Inocente [facility] Start: 04-05-2023 End: 04-05-2023 Patient encounter procedure DO Vitaliy Ball Work Phone: [facility] Work Phone: Start: 03-29-2023 Postop follow up vis it related to original px Sarai [place] II [facility] Start: 03-29-2023 End: 03-29-2023 ambulatory DO Vitaliy Inocente Work Phone: [facility] Work Phone: Start: 03-29-2023 End: 03-29-2023 Patient encounter procedure DO Vitaliy Inocente Work Phone: [facility] Start: 03-15-2023 End: 03-15-2023 ambulatory Sukhjinder Montesinos Other [facility] Other Start: 03-15-2023 Office outpatient vi sit 25 minutes Sukhjinder Montesinos [facility] Start: 03-15-2023 Postop follow up vis it related to original px Melinda Chasearney [facility] Start: 03-15-2023 End: 03-15-2023 Patient encounter procedure DO Vitaliy Ball Work Phone: [facility] Work Phone: Start: 03-12-2023 End: 03-12-2023 ambulatory Sarai Mendez II Other [facility] Other Start: 03-12-2023 Telephone encounter Sarai Mendez II [facility] Start: 03-07-2023 End: 03-07-2023 ambulatory Vitaliy Brower Other [facility] Other Start: 03-07-2023 Postop follow up vis it related to original px Sarai Mendez II [facility] Start: 03-07-2023 Telephone encounter Vitaliy ESTRADA [facility] Comment on above: Results Start: 03-05-2023 End: 03-05-2023 ambulatory Vitaliy Brower Other [employer] Other Start: 03-05-2023 End: 03-05-2023 Patient encounter [...] Bilateral hand pain Start: 03-05-2023 Telephone encounter Vitaliy ESTRADA [facility] Start: 03-02-2023 Refill Heladio Pineda MD Work Phone: Rheumatology Comment on above: Refill Request Start: 02-28-2023 End: 02-28-2023 ambulatory Melinda Verduzco Other [facility] Other Start: 02-28-2023 Postop follow up vis it related to original px Melinda Luba [facility] Start: 02-16-2023 End: 02-16-2023 ambulatory Sarai Mendez II Other [facility] Other Start: 02-16-2023 Telephone encounter Sarai Andrea II [facility] Start: 02-13-2023 Telephone encounter Vitaliy Brower FP [facility] Start: 02-13-2023 End: 02-13-2023 Admission to same day surgery center DO Vitaliy Brower Work Phone: [facility] [place] Start: 02-13-2023 End: 02-13-2023 ambulatory DO Vitaliy Brower Work Phone: [facility] Work Phone: Start: 02-12-2023 End: 02-12-2023 ambulatory Sukhjinder Montesinos Other [employer] Other Start: 02-12-2023 Telephone encounter Sukhjinder Yamel [facility] Start: 02-06-2023 End: 02-06-2023 ambulatory Sarai [place] II Other [facility] Other Start: 02-06-2023 Telephone encounter Sarai Andrae II [facility] Start: 02-02-2023 (Prolonged) Prolonge d Services Sarai [place] II [facility] Start: 02-02-2023 End: 02-02-2023 ambulatory Sarai [place] II Other [facility] Other Start: 01-31-2023 End: 01-31-2023 ambulatory Sarai [place] II Other [facility] Other Start: 01-31-2023 Patient encounter procedure Sarai [place] II [facility] Start: 01-26-2023 End: 01-26-2023 ambulatory DO Vitaliy Ball Work Phone: [facility] Work Phone: Start: 01-26-2023 End: 01-26-2023 Patient encounter procedure DO Vitaliy Brower Work Phone: [facility] Work Phone: Start: 01-24-2023 End: 01-24-2023 ambulatory Vitaliy Brower Other [employer] Other Start: 01-24-2023 Office outpatient vi sit 15 minutes Vitaliy Brower [facility] Start: 01-10-2023 Telephone encounter Heladio alvarado MD Work Phone: Rheumatology Comment on above: Results Start: 01-05-2023 End: 01-05-2023 Patient encounter procedure [...] hand swelling Start: 01-02-2023 End: 01-02-2023 ambulatory Vitaliy Brower Other [facility] Other Start: 01-02-2023 Encounter for other preprocedural examination Vitaliy Inocente [facility] Start: 01-02-2023 Office outpatient vi sit 25 minutes Vitaliy Brower [facility] Start: 12-26-2022 End: 12-26-2022 ambulatory Melinda Verduzco Other [employer] Other Start: 12-26-2022 Office outpatient vi sit 15 minutes Melinda Verduzco [facility] Start: 12-20-2022 End: 12-20-2022 ambulatory Vitaliy Brower Other [employer] Other Start: 12-20-2022 Telephone encounter Vitaliy ESTRADA [facility] Start: 12-04-2022 End: 12-04-2022 ambulatory Vitaliy Brower Other [employer] Other Start: 12-04-2022 Telephone encounter Vitaliy Brower FP [facility] Start: 11-23-2022 End: 11-23-2022 ambulatory Vitaliy Brower Other [employer] Other Start: 11-23-2022 Telephone encounter Vitaliy ESTRADA [facility] Start: 11-22-2022 End: 11-22-2022 ambulatory Sarai Mendez II Other [employer] Other Start: 11-22-2022 Telephone encounter Sarai [facility]endez [facility] Start: 11-21-2022 End: 11-21-2022 ambulatory Melinda Verduzco Other [employer] Other Start: 11-21-2022 Office outpatient vi sit 15 minutes Melinda Verduzco [facility] Start: 11-13-2022 End: 11-13-2022 Patient encounter procedure DO Vitaliy Ball Work Phone: [facility] [place] Work Phone: Start: 11-13-2022 End: 11-13-2022 ambulatory DO Vitaliy Ball Work Phone: [facility] Work Phone: Start: 11-06-2022 End: 11-06-2022 ambulatory Vitaliy Ball Other [facility] Other Start: 11-06-2022 Telephone encounter Vitaliy Brower FP [facility] Start: 11-01-2022 (Procedure) Short Jonathan Samano [facility] Start: 11-01-2022 End: 11-01-2022 ambulatory Jonathan Samano Other [facility] Other Start: 10-26-2022 End: 10-26-2022 ambulatory DO Vitaliy Ball Work Phone: [facility] Work Phone: Start: 10-26-2022 End: 10-26-2022 Patient encounter procedure DO Vitaliy Ball Work Phone: [facility] Start: 10-25-2022 End: 10-25-2022 ambulatory Vitaliy Ball Other [employer] Other Start: 10-25-2022 Office outpatient vi sit 15 minutes Vitaliy Ball [facility] Start: 10-11-2022 End: 10-11-2022 Emergency department patient visit DO Vitaliy Ball Work Phone: [facility]Emergency Room Work Phone: Start: 10-05-2022 End: 10-05-2022 ambulatory Sarai Mendez II Other [employer] Other Start: 10-05-2022 Telephone encounter Sarai Mendez II [facility] Start: 10-04-2022 End: 10-04-2022 ambulatory Vitaliy Ball Other [facility] Other Start: 10-04-2022 Telephone encounter Vitaliy ESTRADA [facility] Start: 10-03-2022 End: 10-03-2022 ambulatory Vitaliy Ball Other [employer] Other Start: 10-03-2022 Office outpatient vi sit 15 minutes Vitaliy Ball [facility] Start: 10-02-2022 Telephone encounter Jonathan ESTRADA [facility] Start: 10-02-2022 End: 10-02-2022 ambulatory DO Vitaliy Ball Work Phone: [facility] Work Phone: Start: 10-02-2022 End: 10-02-2022 Patient encounter procedure DO Vitaliy Ball Work Phone: [facility] [address] Work Phone: Start: 09-27-2022 End: 09-27-2022 ambulatory Vitaliy Brower Other [employer] Other Start: 09-27-2022 Telephone encounter Vitaliy ESTRADA [facility] Start: 08-29-[address] VITALIY BROWER Facili ty:[facility] Start: 08-09-2022 End: 08-09-2022 ambulatory Vitaliy Brower Other [employer] Other Start: 08-09-2022 Office outpatient vi sit 15 minutes Vitaliy Brower [facility] Start: 08-07-2022 End: 08-07-2022 ambulatory Jonathan Samano Other [facility] Other Start: 08-07-2022 Office outpatient vi sit 15 minutes Jonathan Samano [facility] [place] Start: 08-02-2022 End: 08-02-2022 ambulatory DO Vitaliy Brower Work Phone: [facility] Work Phone: Start: 08-02-2022 End: 08-02-2022 Patient encounter procedure DO Vitaliy Brower Work Phone: [facility] Start: 08-01-2022 End: 08-01-2022 ambulatory Vitaliy Brower Other [facility] Other Start: 08-01-2022 Telephone encounter Vitaliy ESTRADA [facility] Start: 07-31-2022 (Procedure) Short Jonathan Samano [facility] Start: 07-31-2022 End: 08-01-[address] VITALIY BROWER [facility] Other Start: 07-31-2022 Telephone encounter Jonathan ESTRADA [facility] [place] Start: 07-29-2022 End: 07-30-[address] VITALIY BROWER Facility:[facility] Start: 07-28-2022 End: 07-28-2022 ambulatory Vitaliy Brower Other [employer] Other Start: 07-28-2022 Office outpatient vi sit 25 minutes Vitaliy Ball [facility] Start: 07-04-2022 End: 07-04-2022 ambulatory Jonathan Shrestha Other [employer] Other Start: 07-04-2022 Office outpatient vi sit 25 minutes Jonathan Shrestha [facility] Start: 07-03-2022 End: 07-03-2022 ambulatory Melinda Jessamine Other [facility] Other Start: 07-03-2022 Telephone encounter Melinda Luba [facility] Start: 06-29-2022 End: 06-29-2022 ambulatory DO Vitaliy Ball Work Phone: [facility] Work Phone: Start: 06-29-2022 End: 06-29-2022 Patient encounter procedure DO Vitaliy Ball Work Phone: [facility] [place] Work Phone: Start: 06-09-2022 End: 06-09-2022 ambulatory Vtialiy Brower Other [employer] Other Start: 06-09-2022 Telephone encounter Vitaliy Brower [facility] Start: 06-05-2022 End: 06-05-2022 ambulatory Jonathan Samano Other [facility] Other Start: 06-05-2022 Office outpatient vi sit 15 minutes Jonathan Samano [facility] [place] Start: 05-29-2022 End: 05-29-2022 ambulatory Vitaliy Ball Other [facility] Other Start: 05-29-2022 Office outpatient vi sit 10 minutes Vitaliy Ball [facility] Start: 05-23-2022 End: 05-23-2022 ambulatory Vitaliy Ball Other [facility] Other Start: 05-23-2022 Office outpatient vi sit 15 minutes Vitaliy Brower [facility] Start: 05-23-2022 Telephone encounter Vitaliy Ball FP G [facility] Start: 05-22-2022 End: 05-22-2022 Emergency department patient visit DO Vitaliy Brower Work Phone: [facility] Work Phone: Start: 05-01-2022 (Procedure) Binta Samano [facility] Start: 05-01-2022 End: 05-01-2022 ambulatory Jonathan Vieiraer Other [facility] Other Start: 04-24-2022 (Procedure) Binta Samano [facility] Start: 04-24-2022 End: 04-24-2022 ambulatory Jonathan Vieiraer Other [facility] Other Start: 04-12-2022 Office outpatient vi sit 25 minutes Jonathan Vieiraer [facility] [place] Start: 04-12-2022 End: 04-12-2022 ambulatory DO Vitaliy Brower Work Phone: [facility] Work Phone: Start: 04-12-2022 End: 04-12-2022 Patient encounter procedure DO Vitaliy Brower Work Phone: [facility] Start: 03-20-2022 (Procedure) Binta Samano [facility] Start: 03-20-2022 End: 03-20-2022 ambulatory Jonathan Vieiraer Other [facility] Other Start: 03-08-2022 End: 03-08-2022 ambulatory Jonathan Darieler Other [facility] Other Start: 03-08-2022 Office outpatient vi sit 25 minutes Jonathan Felter [facility] [place] Start: 02-22-2022 (Procedure) Binta Samano [facility] Start: 02-22-2022 End: 02-22-2022 ambulatory Jonathan Samano Other [facility] Other Start: 02-15-2022 Office outpatient ne w 45 minutes Chio Nichole [facility] Start: 02-15-2022 End: 02-15-2022 ambulatory DO Vitaliy Inocente Work Phone: [facility] Work Phone: Start: 02-15-2022 End: 02-15-2022 Patient encounter procedure DO Vitaliy Brower Work Phone: [facility] Start: 02-13-2022 End: 02-13-2022 ambulatory Jonathan Samano Other [facility] Other Start: 02-13-2022 Office outpatient vi sit 25 minutes Jonathan Samano [facility] [place] Start: 12-26-2021 End: 12-26-2021 Patient encounter procedure DO Vitaliy Brower Work Phone: [facility] [place] Start: 11-30-2021 End: 12-21-[address] VITALIY BROWER Facility: Start: 11-28-2021 Pre-procedure evaluation check Jonathan Samano Other [facility] Other Start: 09-28-2021 End: 09-28-2021 ambulatory Sarai Mendez II Other [facility] Other Start: 09-28-2021 Postop follow up vis it related to original px Sarai Mendez II [facility] Start: 09-28-2021 End: 09-28-2021 Patient encounter procedure DO Vitaliy Ball Work Phone: [facility] Start: 09-12-2021 End: 09-12-2021 ambulatory Melinda Verduzco Other [facility] Other Start: 09-12-2021 Office outpatient vi sit 15 minutes Melinda Luba [facility] Start: 08-17-2021 (Post-Op) Post-Op Sarai [place] II [facility] Start: 08-17-2021 End: 08-17-2021 ambulatory Sarai Andrea II Other [facility] Other Start: 07-20-2021 (Post-Op) Post-Op Sarai Andrea II [facility] Start: 07-20-2021 End: 07-20-2021 ambulatory Sarai [place] II Other [facility] Other Start: 06-24-2021 (Prolonged) Prolonge d Services Sarai [place] II [facility] Start: 06-24-2021 End: 06-24-2021 ambulatory Sarai Andrea II Other [facility] Other Start: 06-17-2021 End: 06-17-2021 ambulatory Sarai [place] II Other [facility] Other Start: 06-17-2021 Office outpatient vi sit 25 minutes Sarai [place] II [facility] Start: 05-27-2021 Adult health examination Jonathan Samano Other [facility] Other Start: 03-25-2021 End: 03-25-2021 ambulatory Sarai [place] II Other [facility] Other Start: 03-25-2021 Telephone encounter Sarai [place] II [facility] Start: 03-24-2021 End: 03-24-2021 ambulatory Jonathan Samano Other [facility] Other Start: 03-24-2021 Telephone encounter Jonathan Samano [facility] Start: 02-22-2021 End: 02-22-2021 ambulatory Jonathan Samano Other [facility] Other Start: 02-22-2021 Office outpatient vi sit 25 minutes Jonathan Samano [facility] [place] Start: 02-15-2021 (Procedure) Short Jonathan Samano [facility] Start: 02-15-2021 End: 02-15-2021 ambulatory Jonathan Samano Other [facility] Other Start: 01-20-2021 Telephone encounter Jonathan Samano NATALIE Aguillon [facility] Start: 01-05-2021 Office outpatient vi sit 15 minutes Jonathan Samano [facility] [place] Start: 06-01-2009 ambulatory Genie rosas MD Work Phone: Radiology Start: 06-01-2009 End: 06-01-2009 Patient encounter procedure Genie Hdez MD Work Phone: [facility] Procedures Date Procedure Procedure Detail Performing Clinician Start: 08-22-2024 Ecg routine ecg w/le ast 12 lds w/i&r Daisy Mora MD Work Phone: Start: 08-12-2024 Radionuclide myocard ial perfusion stress study Vitaliy Ball DO Work Phone: Start: 08-11-2024 Duplex scan of lower limb veins Vitaliy Ball DO Work Phone: Start: 08-11-2024 Plain chest X-ray Dimitry min Ball DO Work Phone: Start: 08-06-2024 Plain X-ray of left hip Vitaliy Ball DO Work Phone: Start: 08-04-2024 Plain X-ray of left hand Vitaliy Ball DO Work Phone: Start: 08-01-2024 Plain X-ray of left hip Vitaliy Ball DO Work Phone: Start: 01-29-2024 Echo transthorc r-t 2d w/wo m-mode rec f-up/lmtd Sammi Loredo SUPERVISOR [employer] PERSON Work Phone: Start: 01-29-2024 Echo transthorc r-t 2d w/wo m-mode rec f-up/lmtd Sammi Loredo SUPERVISOR [employer] PERSON Work Phone: Start: 01-29-2024 Basic metabolic pane l calcium total Sammi Loredo SUPERVISOR [employer] PERSON Work Phone: Start: 01-29-2024 Blood typing serolog ic rh (d) Sammi Loredo SUPERVISOR [employer] PERSON Work Phone: Start: 01-29-2024 Ecg routine ecg w/le ast 12 lds trcg only w/o i&r Sammi Loredo SUPERVISOR [employer] PERSON Work Phone: Start: 01-29-2024 Ct heart contrast ev al cardiac structure&morph Bird Kowalski MD Work Phone: Start: 12-31-2023 Screening colonoscopy D O [employer] Work Phone: Start: 12-31-2023 Colonoscopy Bird prajapati MD Work Phone: Start: 08-30-2023 CT angiography of ne ck vessels DO [employer] Work Phone: Start: 08-30-2023 Computed tomography of abdomen and pelvis with contrast DO [employer] Phone: Start: 08-30-2023 CT angiography of head DO Vitaliy [employer] Work Phone: Start: 08-30-2023 CT of head without contrast DO Vitaliy [employer] Work Phone: Start: 08-30-2023 Plain chest X-ray DO Be njamin [employer] Work Phone: Start: 08-30-2023 Bacterial ID (NA Mul tiplex Assay) DO Vitaliy [employer] Work Phone: Start: 08-30-2023 Blood culture for bacteria, including anaerobic screen DO [employer] Work Phone: Start: 08-30-2023 Respiratory Panel (PCR) DO [employer] Work Phone: Start: 08-30-2023 SARS-CoV-2, Influenz a & RSV (PCR) DO Vitaliy [employer] Work Phone: Start: 08-16-2023 Ecg routine ecg w/le ast 12 lds w/i&r Daisy Mora MD Work Phone: Start: 07-27-2023 History of coronary artery bypass grafting Status post aorto-coronary artery bypass graft Daisy Mora MD Work Phone: Start: 07-27-2023 Ecg routine ecg w/le ast 12 lds w/i&r Daisy Mora MD Work Phone: Start: 06-28-2023 End: 06-28-2023 Dxa bone density study 1/> sites axial judit Pineda MD Work Phone: Start: 06-04-2023 Follow-up visit Follow-up SARAI VELASCO Start: 06-04-2023 Ecg routine ecg w/le ast 12 lds w/i&r Sarai Velasco MD Work Phone: Start: 05-21-2023 Duplex scan of lower limb veins DO Vitaliy [employer] Work Phone: Start: 05-21-2023 X-ray of left knee DO B enjamin [employer] Work Phone: Start: 05-16-2023 Plain X-ray 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 DO Vitaliy [employer] Work Phone: Start: 03-29-2023 Plain X-ray 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 DO Vitaliy Ball Work Phone: Start: 02-13-2023 Plain X-ray 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 DO Vitaliy Ball Work Phone: Start: 02-13-2023 Total replacement 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 joint DO Vitalyi [employer] Work Phone: Start: 02-13-2023 Plain X-ray 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 DO Vitaliy Ball Work Phone: Start: 10-26-2022 Plain X-ray 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 DO Vitaliy [employer] Work Phone: Start: 10-11-2022 CT of head without contrast DO [employer] Work Phone: Start: 08-02-2022 Plain X-ray of right shoulder DO [employer] Work Phone: Start: 08-02-2022 Plain X-ray of left hip DO [employer] Work Phone: Start: 07-29-[address] TABARSE IN [employer] Comment on above: Performed By: #### P [facility] #### [facility] [address] [place] [address] Dr. Tracy Hubbard Start: 06-29-2022 MRI of left shoulder DO [employer] Work Phone: Start: 05-22-2022 Plain X-ray of left elbow DO [employer] Work Phone: Start: 05-22-2022 Plain X-ray of left shoulder DO [employer] Work Phone: Start: 04-12-2022 Plain X-ray 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 DO [employer] Work Phone: Start: 02-15-2022 Plain X-ray of right hand DO [employer] Work Phone: Start: 12-26-2021 XR pre/post mri xray DO [employer] Work Phone: Start: 12-26-2021 MRI of cervical spin e without contrast DO [employer] Work Phone: Start: 09-28-2021 Plain X-ray of left hip DO [employer] Work Phone: Start: 12-11-2014 Screening for malign ant neoplasm of colon Jonathan Samano Other Start: 12-10-2014 Screening for malign ant neoplasm of prostate Jonathan Samano Other Start: 01-02-2013 Preoperative cardiovascular examination Jonathan Samano Other Start: 06-01-2009 CELL CNT+DIFF SYN FL Mo tony Hdez MD Work Phone: Depression screening Jonathan Samano Other History of coronary artery bypass grafting Status post aorto-coronary artery bypass graft Daisy Mora MD Work Phone: History of coronary artery bypass grafting Status post aorto-coronary artery bypass graft Daisy Mora MD Work Phone: History of coronary artery bypass grafting Status post aorto-coronary artery bypass graft Daisy Mora MD Work Phone: History of operative procedure on knee Jonathan Samano Other Screening for malign ant neoplasm of prostate Jonathan Samano Other Plan of Treatment Date Care Activity Detail Author Start: 12-16-2034 RSV Vaccine (1 - 1-dose 75+ series) RSV Vaccine (1 - 1-dose 75+ series) [facility] Start: 12-30-2033 Screening for malignant neoplasm of colon [facility] Start: 05-14-2030 DTaP,Tdap and Td Vaccines (2 - Tdap) DTaP,Tdap and Td Vaccines (2 - Tdap) [facility] [employer] (roll.to) [facility] Start: 05-14-2030 DTaP/Tdap/Td Vaccines (2 - Tdap) DTaP/Tdap/Td Vaccines (2 - Tdap) [facility] Start: 05-14-2030 Urine microalbumin profile DTaP,Tdap,Td Vaccine (2 - Tdap) [facility] Start: 07-30-2027 Prostate Cancer Screening Discussion Prostate Cancer Screening Discussion [facility] Start: 07-30-2027 Prostate specific antigen measurement Prostate Cancer Screening Discussion [facility] Start: 07-01-2027 Diabetes Screening Diabetes Screening [facility] Start: 01-28-2027 Diabetes Screening Diabetes Screening [facility] Start: 06-11-2026 Diabetes Screening Diabetes Screening [facility] Start: 01-05-2026 Diabetes Screening Diabetes Screening [facility] Start: 08-25-2025 End: 08-25-2025 Patient encounter procedure 08/25/2025 12:00 PM EDT Office Visit Rheumatology [address] [place], [place] [id number] Heladio Pineda MD [address] [place] [address] Follow up for osteoarthritis/PMR/gout in 6-12months Rheumatology Comment on above: Follow up for osteoarthritis/PMR/gout in 6-12months Start: 06-29-2025 End: 06-29-2025 Patient encounter procedure 06/29/2025 9:00 AM EDT Office [facility] [address] [facility] [place] [address] Heladio Pineda MD [address] [facility] [place] [address] Return for gout/osteoarthritis/pseu dogout/low vit fu OV 6-12months. Rheumatology Comment on above: Return for gout/osteoarthritis/pseudogou t/low vit fu OV 6-12months. Start: 06-27-2025 Screening for osteoporosis Bone Density Scan [facility] Start: 12-08-2024 Influenza vaccination Influenza Vaccine (Season Ended) [facility] Start: 11-19-2024 Medicare Annual Wellness Visit Medicare Annual Wellness Visit (AWV) [facility] Start: 10-06-2024 End: 07-07-2025 25-hydroxyvitamin D3 [Mass/volume] in Serum or Plasma VITAMIN D 25 HYDROXY Lab Routine Vitamin D deficiency Expected: 10/06/2024 (Approximate), Expires: 07/07/2025 [facility] Comment on above: Expected: 10/06/2024 (Approximate), Expi res: 07/07/2025 Start: 09-30-2024 End: 09-30-2024 Patient encounter procedure 09/30/2024 10:30 AM EDT Office Visit [address] [place] [id number] Daisy Mora MD [address] [facility] [address] [place] [address] [facility] Start: 09-13-2024 End: 09-13-2024 Follow-up encounter 09/13/2024 10:00 AM EDT [facility] Rheumatology [address] [facility] [address] Heladio Pineda MD [address] [facility] [place] [address] follow up Rheumatology Comment on above: follow up Start: 09-08-2024 End: 09-08-2024 ambulatory 09/08/2024 10:30 AM EDT Results Only [facility] [address] [place] [address] LAB [facility] Comment on above: LAB Start: 09-05-2024 End: 08-22-2026 Cardioversion External Cardioversion External Cardiac Services Routine Persistent atrial fibrillation (Multi) Expected: 09/05/2024 (Approximate), Expires: 08/22/2026 [facility] Service Area Work Phone: Comment on above: Expected: 09/05/2024 (Approximate), Expi res: 08/22/2026 Start: 08-13-2024 [facility] Start: 08-11-2024 Referral to air pollution compliance inspector [facility] Start: 08-11-2024 Hospital admission [facility] Start: 08-06-2024 End: 07-07-2025 CBC panel - Blood by Automated count COMPLETE BLOOD COUNT Lab Routine Anemia of chronic disease Expected: 08/06/2024 (Approximate), Expires: 07/07/2025 [facility] Comment on above: Expected: 08/06/2024 (Approximate), Expi res: 07/07/2025 Start: 08-06-2024 End: 07-07-2025 Comprehensive metabolic 2000 panel - Serum or Plasma COMPREHENSIVE METABOLIC PANEL Lab Routine Elevated LFTs Expected: 08/06/2024 (Approximate), Expires: 07/07/2025 [facility] Work Phone: Comment on above: Expected: 08/06/2024 (Approximate), Expi res: 07/07/2025 Start: 08-06-2024 End: 11-05-2024 Urate [Mass/volume] in Serum or Plasma URIC ACID Lab Routine Hyperuricemia Expected: 08/06/2024 (Approximate), Expires: 11/05/2024 [facility] Comment on above: Expected: 08/06/2024 (Approximate), Expi res: 11/05/2024 Start: 08-06-2024 Plain X-ray of left hip XR hip LT min 2V(w/wo pelvis)* [facility] Start: 08-06-2024 XR Hip - left 2 Views [facility] Start: 08-04-2024 Plain X-ray of left hand XR hand LT min 3V* [facility] Start: 08-04-2024 XR Hand - left GE 3 Views [facility] Start: 06-29-2024 End: 06-29-2025 C reactive protein [Mass/volume] in Serum or Plasma C-REACTIVE PROTEIN Lab Routine Elevated sed rate Elevated C-reactive protein (CRP) Expected: 06/29/2024 (Approximate), Expires: 06/29/2025 [facility] Comment on above: Expected: 06/29/2024 (Approximate), Expi res: 06/29/2025 Start: 06-29-2024 End: 06-29-2025 Comprehensive metabolic 2000 panel - Serum or Plasma COMPREHENSIVE METABOLIC PANEL Lab Routine Elevated LFTs Expected: 06/29/2024 (Approximate), Expires: 06/29/2025 [facility] Work Phone: Comment on above: Expected: 06/29/2024 (Approximate), Expi res: 06/29/2025 Start: 06-29-2024 End: 06-29-2025 Erythrocyte sedimentation rate SEDIMENTATION RATE, WESTERGREN Lab Routine Elevated sed rate Elevated C-reactive protein (CRP) Expected: 06/29/2024 (Approximate), Expires: 06/29/2025 [facility] Comment on above: Expected: 06/29/2024 (Approximate), Expi res: 06/29/2025 Start: 06-29-2024 End: 09-28-2024 Urate [Mass/volume] in Serum or Plasma URIC ACID Lab Routine Hyperuricemia Expected: 06/29/2024 (Approximate), Expires: 09/28/2024 [facility] Comment on above: Expected: 06/29/2024 (Approximate), Expi res: 09/28/2024 Start: 06-04-2024 Adult BMI Screening Adult BMI Screening [facility] Start: 06-04-2024 Tobacco Screening Tobacco Screening [facility] Start: 05-20-2024 End: 05-20-2024 Patient encounter procedure 05/20/2024 10:30 AM EST Appointment [address] [place] [phone] [facility] Start: 04-28-2024 End: 04-28-2024 Patient encounter procedure 04/28/2024 8:40 AM EST Office Visit [address] [place] [address] Daisy Mora MD [address] [facility] [address] [place] [address] [facility] Start: 04-18-2024 Tobacco Screening Tobacco Screening [facility] Start: 04-09-2024 Medicare Advantage Annual Wellness Visit Medicare Advantage Annual Wellness Visit [facility] Start: 03-17-2024 End: 03-17-2024 Patient encounter procedure 03/17/2024 9:00 AM EST Office Visit Rheumatology [address] [place] [address] Heladio Pineda MD [address] [facility] [place] [address] for PMR/osteoarthritis/gout fu OV 6months Rheumatology Comment on above: for PMR/osteoarthritis/gout fu OV 6month s Start: 02-14-2024 End: 02-13-2025 Lipid 1996 panel - Serum or Plasma Lipid Panel Lab Routine Mixed hyperlipidemia Expected: 02/14/2024 (Approximate), Expires: 02/13/2025 [facility] Service Area Work Phone: Comment on above: Expected: 02/14/2024 (Approximate), Expi res: 02/13/2025 Start: 02-14-2024 End: 02-14-2024 Patient encounter procedure 02/14/2024 2:00 PM EST Office Visit [facility] [address] [place] [address] [address] [place] [phone] Daisy Mora MD [address] [place] [address] [facility] Start: 01-03-2024 Adult BMI Screening Adult BMI Screening [facility] Start: 12-31-2023 [facility] Start: 12-09-2023 COVID-19 Vaccine ( season) COVID-19 Vaccine () [facility] Start: 12-09-2023 COVID-19 Vaccine ( season) COVID-19 Vaccine ( season) [facility] Start: 12-09-2023 Covid-19 Vaccine () Covid-19 Vaccine () [facility] Start: 12-09-2023 COVID-19 Vaccine () COVID-19 Vaccine () [facility] Start: 12-09-2023 Influenza vaccination [facility] Start: 12-03-2023 Patient referral [facility] Work Phone: Start: 10-18-2023 End: 10-18-2023 Patient encounter procedure 10/18/2023 2:40 PM EDT Office Visit [facility] [address] [facility] [address] [place] [phone] Daisy Mora MD [address] [facility] [address] [place] [address] [facility] Start: 10-08-2023 End: 07-08-2024 25-hydroxyvitamin D3 [Mass/volume] in Serum or Plasma VITAMIN D 25 HYDROXY Lab Routine Vitamin D deficiency Expected: 10/08/2023 (Approximate), Expires: 07/08/2024 [facility] Work Phone: Comment on above: Expected: 10/08/2023 (Approximate), Expi res: 07/08/2024 Start: 10-08-2023 End: 01-07-2024 Urate [Mass/volume] in Serum or Plasma URIC ACID Lab Routine Hyperuricemia Idiopathic chronic gout of multiple sites without tophus Expected: 10/08/2023 (Approximate), Expires: 01/07/2024 [facility] Work Phone: Comment on above: Expected: 10/08/2023 (Approximate), Expi res: 01/07/2024 Start: 10-03-2023 End: 10-03-2023 Patient encounter procedure 10/03/2023 9:30 AM EDT Office Visit [facility] [address] [place] [address] Travis Lucas MD [address] [place] [address] [facility] Start: 09-01-2023 [facility] Start: 08-30-2023 [facility] Start: 08-30-2023 Respiratory pathogens DNA and RNA panel - Nasopharynx by ROSIE with non-probe detection [facility] Start: 08-30-2023 Hospital admission [facility] Start: 08-30-2023 [facility] Start: 08-30-2023 Bacteria identified in Blood by Culture Blood Culture [facility] Start: 08-30-2023 Blood culture for bacteria, including anaerobic screen Blood Culture [facility] Start: 08-16-2023 End: 08-16-2023 Professional / ancillary services management 08/16/2023 10:00 AM EDT Ancillary Procedure [facility] [address] [place] [address] [facility] Start: 08-10-2023 End: 07-26-2024 ECG 12 Lead ECG 12 Lead ECG Routine 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 (Multi) Expected: 08/10/2023 (Approximate), Expires: 07/26/2024 [facility] Work Phone: Comment on above: Expected: 08/10/2023 (Approximate), Expi res: 07/26/2024 Start: 08-08-2023 End: 07-08-2024 C reactive protein [Mass/volume] in Serum or Plasma C-REACTIVE PROTEIN (CRP) Lab Routine Elevated sed rate Elevated C-reactive protein (CRP) Expected: 08/08/2023 (Approximate), Expires: 07/08/2024 [facility] Work Phone: Comment on above: Expected: 08/08/2023 (Approximate), Expi res: 07/08/2024 Start: 08-08-2023 End: 07-08-2024 Erythrocyte sedimentation rate SED RATE WESTERGREN Lab Routine Elevated sed rate Elevated C-reactive protein (CRP) Expected: 08/08/2023 (Approximate), Expires: 07/08/2024 [facility] Work Phone: Comment on above: Expected: 08/08/2023 (Approximate), Expi res: 07/08/2024 Start: 08-02-2023 [facility] Start: 07-27-2023 End: 07-26-2025 Cardioversion External Cardioversion External Cardiac Services Routine 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 (Multi) detention current use of anticoagulant therapy Expected: 07/27/2023 (Approximate), Expires: 07/26/2025 [facility] Service Area Work Phone: Comment on above: Expected: 07/27/2023 (Approximate), Expi res: 07/26/2025 Start: 06-14-2023 End: 06-14-2023 Patient encounter procedure 06/14/2023 1:00 PM EST Appointment [facility] [address] [place] [address] Chhaya Whatley MD [address] [place] [address] [facility] Start: 06-04-2023 End: 06-04-2023 Patient encounter procedure 06/04/2023 2:15 PM EST Office Visit [facility] [address] [place] [address] Sarai Velasco MD [address] [place] [address] [facility] Start: 06-04-2023 End: 06-04-2024 Basic metabolic 2000 panel - Serum or Plasma Basic Metabolic Panel Lab Routine Coronary artery disease involving [place] coronary artery of [place] heart without angina pectoris Persistent atrial fibrillation ([facility]-HCC) Expected: 06/04/2023 (Approximate), Expires: 06/04/2024 [facility] Comment on above: Expected: 06/04/2023 (Approximate), Expi res: 06/04/2024 Start: 06-04-2023 End: 06-04-2024 Cardioversion external Cardioversion external Cardiac Services Routine Persistent atrial fibrillation ([facility]-HCC) Expected: 06/04/2023, Expires: 06/04/2024 [facility] Work Phone: Comment on above: Expected: 06/04/2023, Expires: Start: 06-04-2023 End: 06-04-2024 CBC W Auto Differential panel - Blood CBC auto differential Lab Routine Coronary artery disease involving [place] coronary artery of [place] heart without angina pectoris Persistent atrial fibrillation (CMS-HCC) Expected: 06/04/2023 (Approximate), Expires: 06/04/2024 [facility] Comment on above: Expected: 06/04/2023 (Approximate), Expi res: 06/04/2024 Start: 05-21-2023 Duplex scan of lower limb veins US venous duplex [facility] Start: 04-12-2023 End: 01-11-2024 25-hydroxyvitamin D3 [Mass/volume] in Serum or Plasma VITAMIN D 25 HYDROXY Lab Routine Vitamin D deficiency Expected: 04/12/2023 (Approximate), Expires: 01/11/2024 [facility] Work Phone: Comment on above: Expected: 04/12/2023 (Approximate), Expi res: 01/11/2024 Start: 04-12-2023 End: 01-11-2024 Cobalamin (Vitamin B12) [Mass/volume] in Serum or Plasma VITAMIN B12 BLOOD Lab Routine Vitamin B12 deficiency Expected: 04/12/2023 (Approximate), Expires: 01/11/2024 [facility] Work Phone: Comment on above: Expected: 04/12/2023 (Approximate), Expi res: 01/11/2024 Start: 04-09-2023 Behavioral Health Screening Behavioral Health Screening [facility] Start: 04-09-2023 Depression Assessment Depression Assessment [facility] Start: 04-06-2023 End: 03-07-2024 C reactive protein [Mass/volume] in Serum or Plasma C-REACTIVE PROTEIN (CRP) Lab Routine PMR (polymyalgia rheumatica) (HCC) Elevated sed rate Elevated C-reactive protein (CRP) Expected: 04/06/2023 (Approximate), Expires: 03/07/2024 [facility] Work Phone: Comment on above: Expected: 04/06/2023 (Approximate), Expi res: 03/07/2024 Start: 04-06-2023 End: 03-07-2024 Erythrocyte sedimentation rate SED RATE WESTERGREN Lab Routine PMR (polymyalgia rheumatica) (HCC) Elevated sed rate Elevated C-reactive protein (CRP) Expected: 04/06/2023 (Approximate), Expires: 03/07/2024 [facility] Work Phone: Comment on above: Expected: 04/06/2023 (Approximate), Expi res: 03/07/2024 Start: 02-13-2023 End: 02-13-2023 [facility] Start: 02-13-2023 Physical therapy procedure [facility] Start: 02-10-2023 End: 01-11-2024 C reactive protein [Mass/volume] in Serum or Plasma C-REACTIVE PROTEIN (CRP) Lab Routine Elevated sed rate Elevated C-reactive protein (CRP) Expected: 02/10/2023 (Approximate), Expires: 01/11/2024 [facility] Work Phone: Comment on above: Expected: 02/10/2023 (Approximate), Expi res: 01/11/2024 Start: 02-10-2023 End: 01-11-2024 Erythrocyte sedimentation rate SED RATE WESTERGREN Lab Routine Elevated sed rate Elevated C-reactive protein (CRP) Expected: 02/10/2023 (Approximate), Expires: 01/11/2024 [facility] Work Phone: Comment on above: Expected: 02/10/2023 (Approximate), Expi res: 01/11/2024 Start: 01-29-2023 [facility] Start: 01-26-2023 [facility] Start: 01-05-2023 End: 01-06-2024 25-hydroxyvitamin D3 [Mass/volume] in Serum or Plasma [facility] Work Phone: Comment on above: Expected: 01/05/2023 (Approximate), Expi res: 01/06/2024 Start: 01-05-2023 End: 03-07-2023 Aldolase [Enzymatic activity/volume] in Serum or Plasma [facility] Work Phone: Comment on above: Expected: 01/05/2023 (Approximate), Expi res: 03/07/2023 Start: 01-05-2023 End: 01-06-2024 CHENCHO BY IFA WITH REFLEX [facility] Work Phone: Comment on above: Expected: 01/05/2023 (Approximate), Expi res: 01/06/2024 Start: 01-05-2023 End: 01-06-2024 BLOOD TB SCREEN [facility] Work Phone: Comment on above: Expected: 01/05/2023 (Approximate), Expi res: 01/06/2024 Start: 01-05-2023 End: 01-06-2024 Chronic hepatitis differentiation between hepatitis B and C virus panel - Serum or Plasma [facility] Work Phone: Comment on above: Expected: 01/05/2023 (Approximate), Expi res: 01/06/2024 Start: 01-05-2023 End: 01-06-2024 Cyclic citrullinated peptide IgG Ab [Units/volume] in Serum or Plasma [facility] Work Phone: Comment on above: Expected: 01/05/2023 (Approximate), Expi res: 01/06/2024 Start: 12-08-2022 Covid-19 Vaccine (4 - 2023-24 season) Covid-19 Vaccine ( season) [facility] Start: 12-08-2022 Influenza vaccination [facility] Start: 10-02-2022 Hemolytic complement CH50 level [facility] Start: 10-02-2022 [facility] Start: 08-02-2022 Plain X-ray of right shoulder XR shoulder RT min 2V* [facility] Start: 08-02-2022 Plain X-ray of left hip XR hip LT min 2V(w/wo pelvis)* [facility] Start: 04-09-2022 Depression Assessment Depression Assessment [facility] Start: 06-06-2021 Covid-19 Vaccine (4 - Pfizer series) Covid-19 Vaccine (4 - Pfizer series) [facility] Start: 12-08-2020 Influenza vaccination INFLUENZA (Season Ended) [facility] Start: 2019 Hepatitis B Vaccines (1 of 3 - Risk 3-dose series) Hepatitis B Vaccines (1 of 3 - Risk 3-dose series) [facility] Start: 2019 RSV High Risk: (Elderly (60+) or Population) (1 - Risk 60-74 years 1-dose series) RSV High Risk: (Elderly (60+) or Population) (1 - Risk 60-74 years 1-dose series) [facility] Start: 2019 RSV patients and/or patients aged 60+ years (1 - 1-dose 60+ series) RSV patients and/or patients aged 60+ years (1 - 1-dose 60+ series) [facility] Start: 2019 RSV Vaccine (1 - 1-dose 60+ series) RSV Vaccine (1 - 1-dose 60+ series) [facility] Start: 10-29-2016 DIABETES SCREEN DIABETES SCREEN [facility] Start: 12-16-2014 PROSTATE CANCER SCREENING DISCUSSION PROSTATE CANCER SCREENING DISCUSSION [facility] Start: 12-16-2009 Administration of varicella zoster vaccine Zoster (Shingles) Vaccine (1 of 2) [facility] Start: 12-16-2009 Pneumococcal Vaccine: 50+ (1 of 1 - PCV) Pneumococcal Vaccine: 50+ (1 of 1 - PCV) [facility] Start: 12-16-2009 Screening for malignant neoplasm of colon [facility] Start: 12-16-2009 SHINGRIX VACCINE (1 of 2) SHINGRIX VACCINE (1 of 2) [facility] Start: 12-16-2009 Zoster Vaccines (1 of 2) Zoster Vaccines (1 of 2) [facility] Start: 12-16-2004 Cologuard (FIT-DNA) Cologuard (FIT-DNA) [facility] Start: 12-16-2004 Colonoscopy Colonoscopy [facility] Start: 12-16-2004 Colorectal Cancer Screening Colorectal Cancer Screening [facility] Start: 12-16-[address] COLONOGRAPHY [facility] Start: 12-16-2004 Fecal Occult Blood Fecal Occult Blood [facility] Start: 12-16-2004 Screening for malignant neoplasm of colon [facility] Start: 12-16-2004 SIGMOIDOSCOPY SIGMOIDOSCOPY [facility] Start: 12-16-1994 Lipid 1996 panel - Serum or Plasma Lipid Screening [facility] Start: 12-16-1994 Lipid panel Lipid Screening [facility] Start: 12-16-1994 LIPID SCREEN LIPID SCREEN [facility] Start: 12-16-1978 Hepatitis A Vaccines (1 of 2 - Risk 2-dose series) Hepatitis A Vaccines (1 of 2 - Risk 2-dose series) [facility] Start: 12-16-1978 Pneumococcal vaccination Pneumococcal Vaccine (1 of 2 - PCV) [facility] Start: 12-16-1978 Urine microalbumin profile [facility] Start: 12-16-1977 Adult BMI Follow Up Plan Adult BMI Follow Up Plan [facility] Start: 12-16-1977 Annual PCP Team Chronic Disease Visit Annual PCP Team Chronic Disease Visit [facility] Start: 12-16-1977 Anxiety Screening Anxiety Screening [facility] Start: 12-16-1977 Depression Screening Depression Screening [facility] Start: 12-16-1977 Diabetes mellitus screening Diabetes Screening [facility] Start: 12-16-1977 Hepatitis B surface antibody level LDL Cholesterol [facility] Start: 12-16-1977 Hepatitis C screening Hepatitis C Screening [facility] Start: 12-16-1977 HIV SCREENING HIV SCREENING [facility] Start: 12-16-1977 HIV screening HIV Screening [facility] Start: 1971 Adult depression screening assessment DEPRESSION SCREENING [facility] Start: 1971 COVID-19 VACCINE (1) COVID-19 VACCINE (1) [facility] Start: 12-16-1965 Pneumococcal Vaccine: 65+ Years (1 of 2 - PCV) Pneumococcal Vaccine: 65+ Years (1 of 2 - PCV) [facility] Start: 12-16-1965 Pneumococcal Vaccine: Pediatrics (0 to 5 Years) and At-Risk Patients (6 to 64 Years) (1 of 2 - PCV) Pneumococcal Vaccine: Pediatrics (0 to 5 Years) and At-Risk Patients (6 to 64 Years) (1 of 2 - PCV) [facility] Start: 12-16-1960 MMR Vaccines (1 of 1 - Standard series) MMR Vaccines (1 of 1 - Standard series) [facility] Start: 1959 Annual wellness visit Medicare Initial Physical (IPPE) [facility] Start: 1959 HIV screening HIV Screening [facility] Start: 1959 Lipid panel Lipid Panel [facility] Start: 1959 Medicare Annual Wellness Visit Medicare Annual Wellness Visit (AWV) [facility] Start: 1959 Screening for malignant neoplasm of colon [facility] Start: 1959 Thyroid stimulating hormone measurement TSH Level [facility] End: 01-29-2024 Basic metabolic 2000 panel - Serum or Plasma Basic metabolic panel Lab STAT STAT (Lab) for 1 Occurrences starting 01/29/2024 until 01/29/2024 [facility] Work Phone: Comment on above: STAT (Lab) for 1 Occurrences starting until 01/29/2024 End: 02-01-2024 Basic metabolic 2000 panel - Serum or Plasma Basic Metabolic Panel Lab Routine Morning draw (Lab) for 3 Occurrences starting 01/30/2024 until 02/01/2024 [facility] Work Phone: Comment on above: Morning draw (Lab) for 3 Occurrences sta rting 01/30/2024 until 02/01/2024 C reactive protein [Mass/volume] in Serum or Plasma C-REACTIVE PROTEIN Lab Routine Elevated sed rate Elevated C-reactive protein (CRP) 06/30/2024 10:15 AM EDT [facility] End: 01-29-2024 Cardiac catheterization study Cardiac Catheterization Procedure Cardiac Cath Routine Atrial fibrillation, unspecified type (Multi) Once for 1 Occurrences starting 01/29/2024 until 01/29/2024 [facility] Service Area Work Phone: Comment on above: Once for 1 Occurrences starting 01/29/20 until 01/29/2024 Cardiac catheterizat ion study Cardiac Catheterization Procedure Cardiac Cath Routine Atrial fibrillation, unspecified type (Multi) 01/29/2024 1:18 PM EDT [facility] Work Phone: End: 01-29-2024 CBC W Auto Differential panel - Blood CBC and Auto Differential Lab STAT STAT (Lab) for 1 Occurrences starting 01/29/2024 until 01/29/2024 [facility] Work Phone: Comment on above: STAT (Lab) for 1 Occurrences starting until 01/29/2024 End: 02-01-2024 CBC W Auto Differential panel - Blood CBC and Auto Differential Lab Routine Morning draw (Lab) for 3 Occurrences starting 01/30/2024 until 02/01/2024 [facility] Work Phone: Comment on above: Morning draw (Lab) for 3 Occurrences sta rting 01/30/2024 until 02/01/2024 Complement C3 [Mass/volume] in Serum or Plasma [facility] Complement C4 [Mass/volume] in Serum or Plasma [facility] Comprehensive metabo lic 1999 panel - Serum or Plasma [facility] Comprehensive metabo lic 1999 panel - Serum or Plasma COMPREHENSIVE METABOLIC PANEL Lab Routine Elevated LFTs 06/30/2024 10:15 AM EDT [facility] CT Abdomen and Pelvi s W contrast IV [facility] End: 06-13-2024 CT watchman full contrast [facility] Service Area Work Phone: Comment on above: Once for 1 Occurrences starting 06/14/19 until 06/13/2024 End: 02-04-2024 DXA-AXIAL SKELETON DXA-AXIAL SKELETON Radiology Routine Steroid-induced osteoporosis 1 Occurrences starting 01/05/2023 until 02/04/2024 [facility] Work Phone: Comment on above: 1 Occurrences starting 01/05/2023 until 02/04/2024 End: 02-04-2024 DXA-FOREARM SKELETON DXA-FOREARM SKELETON Radiology Routine Steroid-induced osteoporosis 1 Occurrences starting 01/05/2023 until 02/04/2024 [facility] Work Phone: Comment on above: 1 Occurrences starting 01/05/2023 until 02/04/2024 End: 01-31-2024 ECG 12 lead daily ECG 12 lead daily ECG Routine Daily for 3 Days starting 01/29/2024 until 01/31/2024 [facility] Work Phone: Comment on above: Daily for 3 Days starting 01/29/2024 unt il 01/31/2024 Electrocardiogram, 12-lead PRN ACS symptoms Electrocardiogram, 12-lead PRN ACS symptoms ECG Routine As needed until discontinued starting 01/29/2024 [facility] Work Phone: Comment on above: As needed until discontinued starting Erythrocyte sedimentation rate SEDIMENTATION RATE, WESTERGREN Lab Routine Elevated sed rate Elevated C-reactive protein (CRP) 06/30/2024 10:15 AM EDT [facility] End: 01-29-2024 Incentive spirometry Instruct Incentive spirometry Instruct Respiratory Care Routine Once for 1 Occurrences starting 01/29/2024 until 01/29/2024 [facility] Service Area Work Phone: Comment on above: Once for 1 Occurrences starting 01/29/20 until 01/29/2024 End: 01-29-2024 Magnesium [Mass/volume] in Serum or Plasma Magnesium Lab STAT STAT (Lab) for 1 Occurrences starting 01/29/2024 until 01/29/2024 [facility] Work Phone: Comment on above: STAT (Lab) for 1 Occurrences starting until 01/29/2024 End: 02-01-2024 Magnesium [Mass/volume] in Serum or Plasma Magnesium Lab Routine Morning draw (Lab) for 3 Occurrences starting 01/30/2024 until 02/01/2024 [facility] Work Phone: Comment on above: Morning draw (Lab) for 3 Occurrences sta rting 01/30/2024 until 02/01/2024 Patient Education [facility] Work Phone: Patient referral [facility] Work Phone: End: 01-29-2024 Prothrombin time (PT) Protime-INR Lab STAT STAT (Lab) for 1 Occurrences starting 01/29/2024 until 01/29/2024 [facility] Work Phone: Comment on above: STAT (Lab) for 1 Occurrences starting until 01/29/2024 End: 02-01-2024 Prothrombin time (PT) Protime-INR Lab Routine Morning draw (Lab) for 3 Occurrences starting 01/30/2024 until 02/01/2024 [facility] Work Phone: Comment on above: Morning draw (Lab) for 3 Occurrences sta rting 01/30/2024 until 02/01/2024 Corona extractable nuclear Ab [Units/volume] in Serum [facility] SYNOVIAL FLUID CRYST ALS B/O SYNOVIAL FLUID CRYSTALS B/O Lab Routine Swelling of Knee Joint Ordered: 06/01/2009 [facility] Comment on above: Ordered: 06/01/2009 Urate [Mass/volume] in Serum or Plasma URIC ACID Lab Routine Hyperuricemia 06/30/2024 10:15 AM EDT [facility] Immunizations Immunization Date Immunization Notes Care Provider Fa cili 04-05-2023 influenza, injectable, quadrivalent, preservative free Vitaliy Brower Other [facility] 04-05-2023 influenza virus vaccine, unspecified formulation Daisy Mora MD Work Phone: [facility] Work Phone: 02-06-2022 influenza, injectable, quadrivalent, contains preservative Sarai Mendez II Other [employer] Other 02-06-2022 influenza virus vaccine, split virus (incl. purified surface antigen) Jonathan Samano Other [facility] 02-06-2022 influenza, injectable, quadrivalent, preservative free DO [employer] Work Phone: [facility] 02-06-2022 influenza virus vaccine, unspecified formulation Heladio Pineda MD Work Phone: [facility] 04-11-2021 COVID-19 mRNA, Comirnaty (Pfizer) DO [employer] Work Phone: [facility] 01-18-2021 influenza virus vaccine, split virus (incl. purified surface antigen) Jonathan Samano Other [employer] Other 01-18-2021 Seasonal trivalent influenza vaccine, adjuvanted, preservative free [facility] 01-18-2021 influenza virus vaccine, unspecified formulation Heladio Pineda MD Work Phone: [facility] 06-25-2020 COVID-19 mRNA, Comirnaty (Pfizer) DO [employer] Work Phone: [facility] 06-15-2020 COVID-19 mRNA, Comirnaty (Pfizer) DO [employer] Work Phone: [facility] 06-04-2020 COVID-19 mRNA, Comirnaty (Pfizer) DO [employer] Work Phone: [facility] 05-14-2020 diphtheria, tetanus toxoids and acellular pertussis vaccine, unspecified formulation Jonathan Samano Other [facility] 05-07-2020 Kenalog -40 mg Jonathan Samano Other [employer] Other 01-13-2020 influenza virus vaccine, split virus (incl. purified surface antigen) Jonathan Samano Other [facility] 01-13-2020 influenza virus vaccine, unspecified formulation DO [employer] Work Phone: [facility] 11-03-2019 Kenalog -40 mg Jonathan Samano Other [employer] Other 05-19-2019 Kenalog -40 mg Jonathan Felter Other [employer] Other 01-02-2019 influenza virus vaccine, split virus (incl. purified surface antigen) Jonathan Vieiraer Other [facility] 01-02-2019 influenza virus vaccine, unspecified formulation DO [employer] Phone: [facility] 04-08-2018 Kenalog -40 mg Jonathan Felter Other [facility] Other 01-21-2018 influenza virus vaccine, split virus (incl. purified surface antigen) Jonathan Vieiraer Other [employer] Other 01-21-2018 influenza virus vaccine, unspecified formulation DO [employer] Phone: [facility] 01-21-2018 Influenza, injectable, Madin Nolvia Canine Kidney, quadrivalent with preservative [facility] 04-16-2017 Kenalog -40 mg Jonathan Felter Other [employer] Other 05-23-2016 Kenalog -40 mg Jonathan Felter Other [employer] Other Payers Date Payer Category Payer Self-pay [id number] 2022 Medicare [id number] 2022 Medicare (Managed Care) 1.2. [id number] 2022 Medicare HMO [employer] MED[employer]ARE [id number] 1959 Unknown [id number] 2.16.840.1.438275.3.579.2. 593 1959 Unknown [id number] 2.16.840.1.559870.3.579.2. 593 1959 Unknown [id number] 2.16.840.1.072961.3.579.2. 593 1959 Unknown [id number] 2.16.840.1.356194.3.579.2. 593 1959 Unknown [id number] 2.16.840.1.788863.3.579.2. 128 1959 Unknown [id number] 2.16.840.1.769269.3.579.2. 128 1959 Unknown [id number] 2.16.840.1.898808.3.579.2. 128 1959 Unknown [id number] 2.16.840.1.451042.3.579.2. 128 1959 Unknown [id number] 2.16.840.1.358638.3.579.2. 1259 1959 Unknown [id number] 2.16.840.1.827501.3.579.2. 124 1959 Unknown [id number] 2.16.840.1.173076.3.579.2. 124 1959 Unknown [id number] 2.16.840.1.671357.3.579.2. 124 1959 Unknown [id number] 2.16.840.1.161283.3.579.2. 1244 1959 Unknown [id number] 2.0.1.277089.3.579.2. 1244 1959 Unknown [id number] .0.1.014985.3.579.2. 124 1959 Unknown [id number] 2.0.1.269642.3.579.2. 124 1959 Unknown [id number] .0.1.870700.3.579.2. 1246 1959 Medicare [id number] .[id number] 1959 Private Health Insurance [facility] [id number] Medicare Medicare [id number] Medicare [employer] M[employer] PFFS [id number] Unknown [employer] BC/BS [id number] Unknown [id number] 05.25.830.1.936368.3.579.2. 531 Unknown [id number] 2.840.1.910182.3.579.2. 531 Unknown [id number] 05.25.830.1.707972.3.579.2. 531 Unknown [id number] 05.25.830.1.805457.3.579.2. 531 Unknown [id number] 05.25.830.1.654962.3.579.2. 531 Unknown [id number] .0.1.968703.3.579.2. 531 Unknown [id number] .840.1.170761.3.579.2. 531 Unknown [id number] 2.840.1.022793.3.579.2. 531 Social History Date Type Detail Facility Tobacco smoking stat us NHIS Unknown if ever smoked [facility] Start: 1960 Sex Assigned At Not on file [facility] Start: 01-05-2023 End: 09-13-2024 Sex Assigned At [facility] Start: 07-04-2021 End: 08-12-2024 Tobacco smoking status NHIS Never smoked tobacco (finding) [facility] Start: 1960 Sex Assigned At Male F [facility] Start: 01-05-2023 End: 09-13-2024 Alcohol intake Current drinker of alcohol (finding) [facility] Start: 01-05-2023 End: 09-13-2024 Alcohol intake [facility] National Score (1-100), lower number is lower risk 91 [facility] Start: 01-02-2023 End: 07-27-2023 Tobacco use and exposure Smokeless tobacco non-user [employer] [facility] Start: 07-17-2023 End: 08-22-2024 Exposure to SARS-CoV-2 (event) Not sure [facility] Start: 02-18-2024 End: 09-11-2024 Sex Male (finding) [facility] Medical Equipment Procedure Code Equipment Code Equipment Origin al Text Equipment Identifier Dates Arthroplasty, hip, total, anterior approach Acetabular shell [id number] FDA Start: 07-04-2021 Arthroplasty, hip, total, anterior approach Ceramic femoral head prosthesis ()[id number] FDA Start: 07-04-2021 Arthroplasty, hip, total, anterior approach Coated hip femur prosthesis, modular ()[id number] FDA Start: 07-04-2021 Arthroplasty, hip, total, anterior approach Non-constrained polyethylene acetabular liner ()[id number] FDA Start: 07-04-2021 Arthroplasty, hip, total, anterior approach Acetabular shell ()[id number] FDA Start: 02-13-2023 Arthroplasty, hip, total, anterior approach Ceramic femoral head prosthesis ()[id number] FDA Start: 02-13-2023 Arthroplasty, hip, total, anterior approach Coated hip femur prosthesis, modular ()[id number] FDA Start: 02-13-2023 Arthroplasty, hip, total, anterior approach Non-constrained polyethylene acetabular liner ()[id number] FDA Start: 02-13-2023 Device, Closure, 27mm Watchman Flx Pro Laac - [id number] Start: 01-29-2024 Goals Date Patient Goal Desired Activity /State Functional Status Date Assessment Result Facility 08-13-2024 Functional status Patient at Baseline [facility] Work Phone: 09-01-2023 Functional status Patient at Baseline [facility] Work Phone: 08-30-2023 Functional status Disability Sta tus Patient at Baseline [facility] Work Phone: 11-27-2013 Are you deaf, or do you have serious difficulty hearing No 11/27/2013 9:53 AM Jessica Villar (Daljit)(Hist) No [facility] Work Phone: 11-27-2013 Are you blind, or do you have serious difficulty seeing, even when wearing glasses No 11/27/2013 9:53 AM Jessica Villar (Daljit)(Hist) No [facility] 11-27-2013 Do you have serious difficulty walking or climbing stairs No 11/27/2013 9:53 AM Jessica Villar (Daljit)(Hist) No [facility] 11-27-2013 Do you have difficul ty dressing or bathing No 11/27/2013 9:53 AM Jessica Villar (Cytotechnologist)(Hist) No [facility] 11-27-2013 Because of a physica l, mental, or emotional condition, do you have difficulty doing errands alone such as visiting a physician's office or shopping No 11/27/2013 9:53 AM EDT Jessica Shearer (Cytotechnologist)(Hist) No [facility] Mental Status Date Assessment Result Facility 08-13-2024 Cognitive function Cognitive Sta tus Patient at Baseline [facility] Work Phone: 09-01-2023 Cognitive function Cognitive Sta tus Patient at Baseline [facility] Work Phone: 11-27-2013 Because of a physica l, mental, or emotional condition, do you have serious difficulty concentrating, remembering, or making decisions No 11/27/2013 9:53 AM EDT Jessica Shearer (Cytotechnologist)(Hist) No [facility] Clinical Notes 01-05-2021 to 09-26-2024 Telephone Encounter - Debra Gee RN - 09/26/2024 3:36 PM EDTTelephone Encounter - Debra Gee RN - 09/26/2024 3:36 PM EDTTelephone Encounter - Heladio Pineda MD - 09/26/2024 11:55 AM EDT Note Date & Type Note Facility 09-26-2024 Telephone encounter Note Pt returning call Read message below Voiced understanding No further questions [facility] 09-26-2024 Miscellaneous Notes Pt returning call Read message below Voiced understanding No further questions LMTCB Please call patient. Thank you for the update. So sorry to hear about your discomfort. 2weeks ago when on celebrex, unable to walk Restart steroids 2tabs 4mg daily Restart colchicine once a day. Next week will get labs next week. Very busy with his Pain 9/10 Pain in knees, hands, hips, back Hope you feel better soon and Best wishes on a speedy recovery! Warm regards, :) Patient is stating he can't walk, he went back on the steroid he is taking 2 of 4 mg , He said that he can walk, He is requesting a call from a nurse or Dr. Pineda. Next year appointment is scheduled , labs he said that he will walk in and do them Please call patient to schedule Nonfasting labs Follow up for osteoarthritis/PMR/gout in 6-12months Thankyou. documented in this encounter [facility] 09-26-2024 Instructions Heladio Pineda MD - 09/26/2024 3:35 PM EDT May take Extra Strength acetaminophen 500mg every 4-6hours for joint pain. Do not exceed 3000mg /day. Decrease stress Improve sleep May apply heat/ice 20minutes on and off to areas of pain Avoid aggravating triggers If needed, may take Calcium 1200mg daily with food in DIVIDED doses If labs normal, take Vitamin D 4000 International Units daily with food Allopurinol 200mg daily. Colchicine twice a day if tolerated/helpful continue Medrol as instructed OFF celebrex Recommend goal: exercising 30minutes 3-5 times a week Recommend weight-bearing aerobic exercises such as walking, dancing, low impact aerobics, elliptical machine, stair climbing, gardening, biking, water exercises flexibility exercises and strength training exercises Recommend avoiding high impact exercises such as jumping, running or jogging or movements where you bend forward and twist the waist, for instance- touching your toes, sit-ups, using row machine intermediate pain recommendations per primary care provider/pain clinic Nonfasting labs as scheduled Thank you! documented in this encounter [facility] 09-26-2024 Telephone encounter Note LMTCB [facility] 09-26-2024 History of Presen t illness Narrative THIS IS AN AMBULATORY TELEPHONE VISIT Patient has verbally agreed/consented to this telephone encounter, not originating from a related Evaluation & Management service provided within the previous 7 days. NOTE: Cannot be used if an Evaluation & Management service or procedure is planned within the next 24 hours. I have communicated my name and active licensure. The patient's identity and physical location were verified at the time of this visit. 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 It required patient-provider interaction for the medical decision making as documented below. 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 Hands/knees swelling. Chronic current pain in knees, hands, hips, back. Reports pain 9/10. Has minimal AM stiffness. Feels safe at home. Has enough food, supplies and medications. Overall uncomfortable but happy with rheum care. No falls/fx/trauma/illness/oral sores/rash/hairloss/jaw pain/dysphagia/epistaxis/hemopt ysis since last visit. No adverse effects with meds. No other complaints. Patient denies fever, chills, cp, dyspnea, nausea, vomiting, night sweats, scalp tenderness, visual changes, delgadillo, bowel/bladder changes, weight changes or other complaints. Last visit supportive care, history of 40mg kenalog IM with nurse, see cardiology, improved with medrol 2tabs daily /off x 2weeks/take for flares, stop mobic/minimal response, improved with celebrex/restart if ok with cardiology since OFF eliquis, see ortho s/p R THR, due for possible left rotator cuff tear repair and wrist injections, if PMR recurs may consider trial of dmards/kevzara/did discuss with patient, OFF prednisone due to adverse effects/bad mood/etc., see ortho, start gout friendly diet, improved with allopurinol, OFF colchicine no response and interaction with cholesterol med, see cardiology s/p Watchman, start prn heat/ice/otc arthritis creams, low impact weightbearing exercise as tolerated, avoid aggravating triggers 09/13/24:labs due. taking allopurinol 200mg daily, OFF colchicine no response due to interaction with cholesterol pills, aldactone/hctz, toprol, last day of steroids x 2weeks. OFF eliquis. NO eye issues. NO PMR/GCA symptoms. No gout. Recent hospital for Afib treated with cardioversion. Afib due to increased stress. Stable now, due to see cardiology in 6months. 08/18/24 patient requests to wean off prednisone. May try decreasing prednisone 3mg twice a day x 1-2weeks, then 2mg twice a day 1-2weeks, then 1mg twice a day x 1-2weeks, then 1mg daily x 1-2weeks, then 1mg every other day x 1-2weeks, then off if tolerated. When off prednisone, may resume celebrex. Please schedule nonfasting labs in 1month. 08/07/24 states he is taking 4mg of prednisone twice daily (would not recommend celebrex) 08/06/24 is there a way to get me off the steroid I'm on and go back on my celebrex it did the same as the steroid actually better I had a watchman device put in my heart I'm on no blood thinners any more thanks 06/30/24 high wbc 12.61, glucose 213, alt 73,uric acid 6.4;low vitamin D 19.2;normal rest of cbc, cmp, esr 12, crp 0.6; limited exercise due to pain. NO new swelling. 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 Tried mobic this week mild response. Likes celebrex better and wants to restart celebrex. Reports pain 6-10/16. Has minimal AM stiffness. 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 Feels safe at home. Has enough food, supplies and medications. Overall mildly uncomfortable but happy with rheum care. No falls/fx/trauma/illness/oral sores/rash/hairloss/jaw pain/dysphagia/epistaxis/hemopt ysis since last visit. No adverse effects with meds. No other complaints. Patient denies fever, chills, cp, dyspnea, nausea, vomiting, night sweats, scalp tenderness, visual changes, delgadillo, bowel/bladder changes, weight changes or other complaints. Last visit supportive care, history of 40mg kenalog IM with nurse, see cardiology, improved with medrol 2tabs daily /increase if high APRs/taper monthly when stable and if tolerated, see ortho s/p R THR, due for possible left rotator cuff tear repair (stress dose steroids), then may consider trial of dmards/kevzara/did discuss with patient, improved with celebrex/may take when off medrol, OFF prednisone due to adverse effects/bad mood/etc., see ortho, start gout friendly diet, improved with allopurinol, colchicine, see cardiology s/p Watchman, start prn heat/ice/otc arthritis creams, low impact weightbearing exercise as tolerated, avoid aggravating triggers, 06/30/24: taking allopurinol 100mg daily, vitamin D script, aldactone and hctz, celebrex, eliquis, lipitor. No response with tramadol. NO eye issues. NO PMR/GCA symptoms. NO gout. Has to take medrol two tabs daily due to pain and unable to walk. Wants to increase medrol. Had a reaction with most recent prednisone but had tolerated it long time ago. 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 Off plavix x 2weeks 05/2024 fell twice on ice and steps on ice, bruises R ribs, then had bronchitis, treated with antibiotics corrie hoffman. Still has cough 09/05/23 normal esr 2, crp 0.8; 08/02/23 in hospital 07/05/23 low vitamin D 21.4;normal esr 15, crp 0.8, ck 52, aldolase 5.3, vitamin b12-685; 06/28/23 bmd WITHIN THE EXPECTED RANGE FOR AGE Outside 06/12/23 low mag 1.5;high glucose 117;normal cbc, rest of bmp; 04/18/23 in ED for chronic Afib. 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 No new swelling. Chronic current pain in muscles more the joints, weakness of arms and legs. Reports pain 8-01/16. Has minimal AM stiffness. Feels safe at home. Has enough food, supplies and medications. Overall uncomfortable but happy with rheum care. No falls/fx/trauma/illness/oral sores/rash/hairloss/jaw pain/dysphagia/epistaxis/hemopt ysis since last visit. No adverse effects with meds. No other complaints. Patient denies fever, chills, cp, dyspnea, nausea, vomiting, night sweats, scalp tenderness, visual changes, delgadillo, bowel/bladder changes, weight changes or other complaints. Last visit supportive care, 40mg kenalog IM with nurse, see cardiology, improved with medrol start 3-4tabs daily /taper monthly if tolerated, see ortho s/p R THR, due for possible left rotator cuff tear repair (stress dose steroids), then may consider trial of dmards/kevzara/did discuss with patient, improved with celebrex/may take when off medrol, OFF prednisone due to adverse effects/bad mood/etc., see ortho, start gout friendly diet, improved with allopurinol, colchicine, see cardiology, start prn heat/ice/otc arthritis creams, low impact weightbearing exercise as tolerated, avoid aggravating triggers, 07/05/23: taking eliquis, OFF medrol since 05/2023, [...] happy with rheum care. No falls/fx/trauma/illness/oral sores/rash/hairloss/jaw pain/dysphagia/epistaxis/hemopt ysis since last visit. No adverse effects with [...] tear repair vs joint replacement. Reports pain -07/17. Has minimal AM stiffness. COVID vaccine 06/04/20, 06/25/20, 04/11/21. Feels safe at home. Has enough food, supplies and medications. Overall mildly uncomfortable but happy with rheum care. No falls/fx/trauma/illness/oral sores/rash/hairloss/jaw pain/dysphagia/epistaxis/hemopt ysis since last visit. No adverse effects with [...] Due right THR 02/13/23 No falls/fx/trauma/illness/oral sores/rash/hairloss/jaw pain/dysphagia/epistaxis/hemopt ysis. No adverse effects with meds. 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 03/05/23 normal esr 9, crp<0.3; 10/2013 hand xrays-Distal interphalangeal and PIP joint [...] xrays-Marked triscaphe joint space narrowing bilaterally with [id number] contact and subchondral sclerosis. Mild narrowing of the right third digit MCP joint with small osteophytes. Tiny osteophytes also noted in the left third digit MCP joint. Tiny osteophytes are also seen at the several other PIP and DIP joints. PHYSICAL EXAM:reviewed vitals from last visit General Exam: A&Ox3, NAD.Very pleasant. s/p b/l THR, uncomfortable, speaks in full sentences without distress IMPRESSION/DIAGNOSIS:09/26/24 [id number] Idiopathic chronic gout of multiple sites without tophus (primary encounter diagnosis) M11.89 Pseudogout involving multiple joints M15.3 Secondary osteoarthritis of multiple sites M35.3 PMR (polymyalgia rheumatica) (HCC) R76.8 CHENCHO positive M79.641, M79.642 Bilateral hand pain Z79.899 Long-term use of high-risk medication M25.551, M25.552, G89.29 Chronic hip pain, bilateral M12.812 Rotator cuff arthropathy of left shoulder Z79.52 detention current use of 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 M79.89 Bilateral hand swelling M25.561, M25.562, G89.29 Chronic pain of both knees R29.898 Leg weakness, bilateral M54.50, G89.29 Chronic bilateral low back pain without sciatica Mr. Steven is a 63 year old Wmale with PMH FER/waiting CPAP, [...] joints, pseudogout of multiple joints, PMR, here More soreness when off steroids. In past Celebrex helped knee pain better than medrol. Only takes celebrex when off steroids. S/p R THR. Keloid on incision site. Did home PT exercises, off walker and cane. Mild leg edema/ swelling. Last visit pain in left arm, R upper arm/bicep. Possible 06/2023 left rotator cuff tear repair vs joint replacement. COVID vaccine 06/04/20, 06/25/20, 04/11/21. taking eliquis, OFF medrol since 05/2023, allopurinoll 100mg daily. 2months ago Left knee gout for 2days. yes PMR,unable to lift UEs, unable to pull up bed covers due to UE pain. he denies GCA. No vitamin D. 04/2023 +COVID19 treated with paxlovid, 04/18/23 went into Afib, due to see cardiology soon No response with tramadol. Has to take medrol two tabs daily due to pain and unable to walk. Last visit wanted to increase medrol. Had a reaction with most recent prednisone but had tolerated it long time ago. 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 Off plavix x 2weeks 05/2024 fell twice on ice and steps on ice, bruises R ribs, then had bronchitis, treated with antibiotics corrie hoffman. Still has cough 09/05/23 normal esr 2, crp 0.8; 08/02/23 in hospital 07/05/23 low vitamin D 21.4;normal esr 15, crp 0.8, ck 52, aldolase 5.3, vitamin b12-685; 06/28/23 bmd WITHIN THE EXPECTED RANGE FOR AGE Outside 06/12/23 low mag 1.5;high glucose 117;normal cbc, rest of bmp; 04/18/23 in ED for chronic Afib. 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 labs due. taking allopurinol 200mg daily, OFF colchicine no response due to interaction with cholesterol pills, aldactone/hctz, toprol, last day of steroids x 2weeks. OFF eliquis. NO eye issues. NO PMR/GCA symptoms. No gout. Recent hospital for Afib treated with cardioversion. Afib due to increased stress. Stable now, due to see cardiology in 6months. 08/18/24 patient requests to wean off prednisone. May try decreasing prednisone 3mg twice a day x 1-2weeks, then 2mg twice a day 1-2weeks, then 1mg twice a day x 1-2weeks, then 1mg daily x 1-2weeks, then 1mg every other day x 1-2weeks, then off if tolerated. Last visit When off prednisone, he retried celebrex but had more pain and swelling. 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 Tried mobic few weeks ago with mild response. Used to Like celebrex better and wanted to restart celebrex. 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 labs due. 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 Hands/knees swelling. Chronic current pain in knees, hands, hips, back. Reports pain 9/10. Has minimal AM stiffness. Feels safe at home. Has enough food, supplies and medications. Overall uncomfortable but happy with rheum care. Will complete workup for reported symptoms = supportive care, history of 40mg kenalog IM with nurse/may retry in future for flares if helpful, see cardiology, improved with medrol 2tabs daily (worse pain when off and taking celebrex), OFF mobic/minimal response, years ago improved with celebrex/not effective enough, celebrex ok with cardiology since OFF eliquis, see ortho s/p R THR, due for possible left rotator cuff tear repair and wrist injections, if PMR recurs may consider trial of dmards/kevzara/did discuss with patient, OFF prednisone due to adverse effects/bad mood/etc., see ortho, start gout friendly diet, improved with allopurinol, OFF colchicine no response and interaction with cholesterol med, see cardiology s/p Watchman, start prn heat/ice/otc arthritis creams, low impact weightbearing exercise as tolerated, avoid aggravating triggers, answered all questions and concerns, patient voiced understanding. RECOMMENDATION/PLAN: Reviewed all available labs/tests with patient Provided printed info 07/05/23 IM 40mg kenalog with nurse 09/26/24 check nonfasting labs this month Modified 09/26/24 HATTIE 0, pain 90%;09/13/24 HATTIE 0 pain 60-70%;06/30/24 HATTIE 0, pain 80-100%;07/05/23 HATTIE 0, pain 70-90%;03/05/23 HATTIE 0, pain 30-40%;January 05, 2023 HAQ0, pain 30-50%; May take Extra Strength acetaminophen 500mg every 4-6hours for joint pain. Do not exceed 3000mg /day. Decrease stress Improve sleep May apply heat/ice 20minutes on and off to areas of pain Avoid aggravating triggers If needed, may take Calcium 1200mg daily with food in DIVIDED doses If labs normal, take Vitamin D 4000 International Units daily with food Allopurinol 200mg daily. Colchicine twice a day if tolerated/helpful continue Medrol as instructed OFF celebrex Recommend goal: exercising 30minutes 3-5 times a week Recommend weight-bearing aerobic exercises such as walking, dancing, low impact aerobics, elliptical machine, stair climbing, gardening, biking, water exercises flexibility exercises and strength training exercises Recommend avoiding high impact exercises such as jumping, running or jogging or movements where you bend forward and twist the waist, for instance- touching your toes, sit-ups, using row machine intermediate pain recommendations per primary care provider/pain clinic Nonfasting labs as scheduled Additional time spent with patient on healthy lifestyle, healthy food and anti-inflammatory diet (with emphasis on whole plant based [...] continued care. Will follow disease activity/progression and adjust therapeutic regimen to disease activity and severity. Discussed [...] Patient agrees to plan as noted above. The above reflects my independent exam and review. I saw and examined the patient myself personally. Parts of the HPI, ROS, exam and impression/plan may have been copied from my personal previous clinical note and remain pertinent. Current changes have been made and documented today. Other parts or data were deleted if not relevant for today. Plan as outlined. Medical decision making was high complexity due to patient's, multiple symptoms, multiple advancing diseases. Total time spent on this visit, with more than 50% of time spent via video & audio (virtual) or phone or face to face with patient, in consultation, and in addition to Counseling and Coordination of Care, explanation of diagnosis, and planning of further management; I spent a total of 30 minutes 12:02-12:32PM on the date of the service during phone/virtual or office visit with an additional 10-15 minutes which included preparing to talk with the patient via video & audio (virtual) or phone or [id number] patient care, completing clinical documentation, obtaining and/or reviewing separately obtained history, review all available records, performing a medically appropriate examination, counseling and educating the patient/family/caregiver, ordering medications, tests, or procedures, communicating with other HCPs (not separately reported), independently interpreting results (not separately reported), communicating results to the patient/family/caregiver and care coordination (not separately reported) Follow up 6-12months, earlier if needed Recommendations to share with [...] consult by letter/electronic shared medical records. cc Vitaliy Brower DO documented in this encounter [facility] 09-26-2024 Telephone encounter Note Please call patient. Thank you for the update. So sorry to hear about your discomfort. 2weeks ago when on celebrex, unable to walk Restart steroids 2tabs 4mg daily Restart colchicine once a day. Next week will get labs next week. Very busy with his Pain 9/10 Pain in knees, hands, hips, back Hope you feel better soon and Best wishes on a speedy recovery! Warm regards, :) [facility] 09-25-2024 Telephone encounter Note Patient is stating he can't walk, he went back on the steroid he is taking 2 of 4 mg , He said that he can walk, He is requesting a call from a nurse or Dr. Pineda. Next year appointment is scheduled , labs he said that he will walk in and do them [facility] 09-13-2024 Telephone encounter Note Please call patient to schedule Nonfasting labs Follow up for osteoarthritis/PMR/gout in 6-12months Thankyou. [facility] 09-13-2024 Instructions Heladio Pineda MD - 09/13/2024 10:21 AM EDT May take Extra Strength acetaminophen 500mg every 4-6hours for joint pain. Do not exceed 3000mg /day. Decrease stress Improve sleep May apply heat/ice 20minutes on and off to areas of pain Avoid aggravating triggers If needed, may take Calcium 1200mg daily with food in DIVIDED doses If labs normal, take Vitamin D 4000 International Units daily with food Allopurinol 200mg daily. OFF Medrol/take for flares Restart celebrex up to twice a day for pain, take with food if ok with cardiology. 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 documented in this encounter [facility] 09-13-2024 History of Presen t illness Narrative THIS IS A AMBULATORY TELEPHONE VISIT Patient has verbally agreed/consented to this telephone encounter, not originating from a related Evaluation & Management service provided within the previous 7 days. NOTE: Cannot be used if an Evaluation & Management service or procedure is planned within the next 24 hours. I have communicated my name and active licensure. The patient's identity and physical location were verified at the time of this visit. 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 It required patient-provider interaction for the medical decision making as documented below. 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 taking allopurinol 200mg daily, OFF colchicine no response due to interaction with cholesterol pills, aldactone/hctz, toprol, last day of steroids x 2weeks. OFF eliquis. NO eye issues. NO PMR/GCA symptoms. No gout. Recent hospital for Afib treated with cardioversion. Afib due to increased stress. Stable now, due to see cardiology in 6months. 08/18/24 patient requests to wean off prednisone. May try decreasing prednisone 3mg twice a day x 1-2weeks, then 2mg twice a day 1-2weeks, then 1mg twice a day x 1-2weeks, then 1mg daily x 1-2weeks, then 1mg every other day x 1-2weeks, then off if tolerated. When off prednisone, may resume celebrex. Please schedule nonfasting labs in 1month. 08/07/24 states he is taking 4mg of prednisone twice daily (would not recommend celebrex) 08/06/24 is there a way to get me off the steroid I'm on and go back on my celebrex it did the same as the steroid actually better I had a watchman device put in my heart I'm on no blood thinners any more thanks 06/30/24 high wbc 12.61, glucose 213, alt 73,uric acid 6.4;low vitamin D 19.2;normal rest of cbc, cmp, esr 12, crp 0.6; limited exercise due to pain. NO new swelling. Chronic current pain in both hands, hips, knees, all over, worse when sitting intermediate. Tried mobic this week mild response. Likes celebrex better and wants to restart celebrex. Reports pain 6-7/10. Has minimal AM stiffness. 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 Feels safe at home. Has enough food, supplies and medications. Overall mildly uncomfortable but happy with rheum care. No falls/fx/trauma/illness/oral sores/rash/hairloss/jaw pain/dysphagia/epistaxis/hemopt ysis since last visit. No adverse effects with meds. No other complaints. Patient denies fever, chills, cp, dyspnea, nausea, vomiting, night sweats, scalp tenderness, visual changes, delgadillo, bowel/bladder changes, weight changes or other complaints. Last visit supportive care, history of 40mg kenalog IM with nurse, see cardiology, improved with medrol 2tabs daily /increase if high APRs/taper monthly when stable and if tolerated, see ortho s/p R THR, due for possible left rotator cuff tear repair (stress dose steroids), then may consider trial of dmards/kevzara/did discuss with patient, improved with celebrex/may take when off medrol, OFF prednisone due to adverse effects/bad mood/etc., see ortho, start gout friendly diet, improved with allopurinol, colchicine, see cardiology s/p Watchman, start prn heat/ice/otc arthritis creams, low impact weightbearing exercise as tolerated, avoid aggravating triggers, 06/30/24: taking allopurinol 100mg daily, vitamin D script, aldactone and hctz, celebrex, eliquis, lipitor. No response with tramadol. NO eye issues. NO PMR/GCA symptoms. NO gout. Has to take medrol two tabs daily due to pain and unable to walk. Wants to increase medrol. Had a reaction with most recent prednisone but had tolerated it long time ago. 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 Off plavix x 2weeks 05/2024 fell twice on ice and steps on ice, bruises R ribs, then had bronchitis, treated with antibiotics tesdequanon yasmin. Still has cough 09/05/23 normal esr 2, crp 0.8; 08/02/23 in hospital 07/05/23 low vitamin D 21.4;normal esr 15, crp 0.8, ck 52, aldolase 5.3, vitamin b12-685; 06/28/23 bmd WITHIN THE EXPECTED RANGE FOR AGE Outside 06/12/23 low mag 1.5;high glucose 117;normal cbc, rest of bmp; 04/18/23 in ED for chronic Afib. 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 No new swelling. Chronic current pain in muscles more the joints, weakness of arms and legs. Reports pain 8-10. Has minimal AM stiffness. Feels safe at home. Has enough food, supplies and medications. Overall uncomfortable but happy with rheum care. No falls/fx/trauma/illness/oral sores/rash/hairloss/jaw pain/dysphagia/epistaxis/hemopt ysis since last visit. No adverse effects with meds. No other complaints. Patient denies fever, chills, cp, dyspnea, nausea, vomiting, night sweats, scalp tenderness, visual changes, delgadillo, bowel/bladder changes, weight changes or other complaints. Last visit supportive care, 40mg kenalog IM with nurse, see cardiology, improved with medrol start 3-4tabs daily /taper monthly if tolerated, see ortho s/p R THR, due for possible left rotator cuff tear repair (stress dose steroids), then may consider trial of dmards/kevzara/did discuss with patient, improved with celebrex/may take when off medrol, OFF prednisone due to adverse effects/bad mood/etc., see ortho, start gout friendly diet, improved with allopurinol, colchicine, see cardiology, start prn heat/ice/otc arthritis creams, low impact weightbearing exercise as tolerated, avoid aggravating triggers, 07/05/23: taking eliquis, OFF medrol since 05/2023, [...] happy with rheum care. No falls/fx/trauma/illness/oral sores/rash/hairloss/jaw pain/dysphagia/epistaxis/hemopt ysis since last visit. No adverse effects with [...] tear repair vs joint replacement. Reports pain -07/17. Has minimal AM stiffness. COVID vaccine 06/04/20, 06/25/20, 04/11/21. Feels safe at home. Has enough food, supplies and medications. Overall mildly uncomfortable but happy with rheum care. No falls/fx/trauma/illness/oral sores/rash/hairloss/jaw pain/dysphagia/epistaxis/hemopt ysis since last visit. No adverse effects with [...] Due right THR 02/13/23 No falls/fx/trauma/illness/oral sores/rash/hairloss/jaw pain/dysphagia/epistaxis/hemopt ysis. No adverse effects with meds. 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 03/05/23 normal esr 9, crp<0.3; 10/2013 hand xrays-Distal interphalangeal and PIP joint [...] xrays-Marked triscaphe joint space narrowing bilaterally with yhee-sn-ffin contact and subchondral sclerosis. Mild narrowing of the right third digit MCP joint with small osteophytes. Tiny osteophytes also noted in the left third digit MCP joint. Tiny osteophytes are also seen at the several other PIP and DIP joints. PHYSICAL EXAM:reviewed vitals from last visit General Exam: A&Ox3, NAD.Very pleasant. s/p b/l THR, uncomfortable, speaks in full sentences without distress IMPRESSION/DIAGNOSIS:09/13/24 [id number] Idiopathic chronic gout of multiple sites without tophus (primary encounter diagnosis) M11.89 Pseudogout involving multiple joints M25.561, M25.562, G89.29 Chronic pain of both knees E55.9 Vitamin D deficiency M15.3 Secondary osteoarthritis of multiple sites M35.3 PMR (polymyalgia rheumatica) ([facility]) R76.8 CHENCHO positive M79.641, M79.642 Bilateral hand pain Z79.899 Long-term use of high-risk medication M25.551, M25.552, G89.29 Chronic hip pain, bilateral Mr. Steven is a 63 year old Wmale with PMH FER/waiting CPAP, [...] joints, pseudogout of multiple joints, PMR, here More soreness when off steroids. In past Celebrex helped knee pain better than medrol. Only takes celebrex when off steroids. S/p R THR. Keloid on incision site. Did home PT exercises, off walker and cane. Mild leg edema/ swelling. Last visit pain in left arm, R upper arm/bicep. Possible 06/2023 left rotator cuff tear repair vs joint replacement. COVID vaccine 06/04/20, 06/25/20, 04/11/21. taking eliquis, OFF medrol since 05/2023, allopurinoll 100mg daily. 2months ago Left knee gout for 2days. yes PMR,unable to lift UEs, unable to pull up bed covers due to UE pain. he denies GCA. No vitamin D. 04/2023 +COVID19 treated with paxlovid, 04/18/23 went into Afib, due to see cardiology soon No response with tramadol. Has to take medrol two tabs daily due to pain and unable to walk. Last visit wanted to increase medrol. Had a reaction with most recent prednisone but had tolerated it long time ago. 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 Off plavix x 2weeks 05/2024 fell twice on ice and steps on ice, bruises R ribs, then had bronchitis, treated with antibiotics tessalon perles. Still has cough 09/05/23 normal esr 2, crp 0.8; 08/02/23 in hospital 07/05/23 low vitamin D 21.4;normal esr 15, crp 0.8, ck 52, aldolase 5.3, vitamin b12-685; 06/28/23 bmd WITHIN THE EXPECTED RANGE FOR AGE Outside 06/12/23 low mag 1.5;high glucose 117;normal cbc, rest of bmp; 04/18/23 in ED for chronic Afib. 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 labs due. taking allopurinol 200mg daily, OFF colchicine no response due to interaction with cholesterol pills, aldactone/hctz, toprol, last day of steroids x 2weeks. OFF eliquis. NO eye issues. NO PMR/GCA symptoms. No gout. Recent hospital for Afib treated with cardioversion. Afib due to increased stress. Stable now, due to see cardiology in 6months. 08/18/24 patient requests to wean off prednisone. May try decreasing prednisone 3mg twice a day x 1-2weeks, then 2mg twice a day 1-2weeks, then 1mg twice a day x 1-2weeks, then 1mg daily x 1-2weeks, then 1mg every other day x 1-2weeks, then off if tolerated. When off prednisone, may resume celebrex. Please schedule nonfasting labs in 1month. 08/07/24 states he is taking 4mg of prednisone twice daily (would not recommend celebrex) 08/06/24 is there a way to get me off the steroid I'm on and go back on my celebrex it did the same as the steroid actually better I had a watchman device put in my heart I'm on no blood thinners any more thanks 06/30/24 high wbc 12.61, glucose 213, alt 73,uric acid 6.4;low vitamin D 19.2;normal rest of cbc, cmp, esr 12, crp 0.6; limited exercise due to pain. NO new swelling. Chronic current pain in both hands, hips, knees, all over, worse when sitting intermediate. Tried mobic this week mild response. Likes celebrex better and wants to restart celebrex. Reports pain -10/16. Has minimal AM stiffness. 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 Feels safe at home. Has enough food, supplies and medications. Overall mildly uncomfortable but happy with rheum care. Will complete workup for reported symptoms = supportive care, history of 40mg kenalog IM with nurse, see cardiology, improved with medrol 2tabs daily /off x 2weeks/take for flares, stop mobic/minimal response, improved with celebrex/restart if ok with cardiology since OFF eliquis, see ortho s/p R THR, due for possible left rotator cuff tear repair and wrist injections, if PMR recurs may consider trial of dmards/kevzara/did discuss with patient, OFF prednisone due to adverse effects/bad mood/etc., see ortho, start gout friendly diet, improved with allopurinol, OFF colchicine no response and interaction with cholesterol med, see cardiology s/p Watchman, start prn heat/ice/otc arthritis creams, low impact weightbearing exercise as tolerated, avoid aggravating triggers, answered all questions and concerns, patient voiced understanding. RECOMMENDATION/PLAN: Reviewed all available labs/tests with patient Provided printed info 07/05/23 IM 40mg kenalog with nurse 09/13/24 check nonfasting labs this month Modified 09/13/24 HATTIE 0 pain 60-70%;06/30/24 HATTIE 0, pain 80-100%;07/05/23 HATTIE 0, pain 70-90%;03/05/23 HATTIE 0, pain 30-40%;January 05, 2023 HAQ0, [...] D 4000 International Units daily with food Allopurinol 200mg daily. OFF Medrol/take for flares Restart celebrex up to twice a day for pain, take with food if ok with cardiology. Recommend goal: exercising 30minutes 3-5 times a week Recommend weight-bearing aerobic exercises such as walking, dancing, low impact aerobics, elliptical machine, stair climbing, gardening, biking, water exercises flexibility exercises and strength training exercises Recommend avoiding high impact exercises such as jumping, running or jogging or movements where you bend forward and twist the waist, for instance- touching your toes, sit-ups, using row machine intermediate pain recommendations per primary care provider/pain clinic Nonfasting labs as scheduled Additional time spent with patient on healthy lifestyle, healthy food and anti-inflammatory diet (with emphasis on whole plant based [...] continued care. Will follow disease activity/progression and adjust therapeutic regimen to disease activity and severity. Discussed [...] Patient agrees to plan as noted above. The above reflects my independent exam and review. I saw and examined the patient myself personally. Parts of the HPI, ROS, exam and impression/plan may have been copied from my personal previous clinical note and remain pertinent. Current changes have been made and documented today. Other parts or data were deleted if not relevant for today. Plan as outlined. Medical decision making was high complexity due to patient's, multiple symptoms, multiple advancing diseases. Total time spent on this visit, with more than 50% of time spent via video & audio (virtual) or phone or face to face with patient, in consultation, and in addition to Counseling and Coordination of Care, explanation of diagnosis, and planning of further management; I spent a total of 30 minutes 9:57-10:27AM on the date of the service during phone/virtual or office visit with an additional 10-15 minutes which included preparing to talk with the patient via video & audio (virtual) or phone or [id number] patient care, completing clinical documentation, obtaining and/or reviewing separately obtained history, review all available records, performing a medically appropriate examination, counseling and educating the patient/family/caregiver, ordering medications, tests, or procedures, communicating with other HCPs (not separately reported), independently interpreting results (not separately reported), communicating results to the patient/family/caregiver and care coordination (not separately reported) Follow up 6-12months, earlier if needed Recommendations to share with [...] consult by letter/electronic shared medical records. cc Vitaliy Brower DO documented in this encounter [facility] 09-13-2024 Note HNO ID: [id number] Author: HELADIO PINEDA MD Service: ? Author Type: Physician Type: Progress Notes Filed: 09/13/2024 12:30 Note Text: THIS IS A AMBULATORY TELEPHONE VISIT Patient has verbally agreed/consented to this telephone encounter, not originating from a related Evaluation AND Management service provided within the previous 7 days. NOTE: Cannot be used if an Evaluation AND Management service or procedure is planned within the next 24 hours. I have communicated my name and active licensure. The patient's identity and physical location were verified at the time of this visit. 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 It required patient-provider interaction for the medical decision making as documented below. 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 taking allopurinol 200mg daily, OFF colchicine no response due to interaction with cholesterol pills, aldactone/hctz, toprol, last day of steroids x 2weeks. OFF eliquis. NO eye issues. NO PMR/GCA symptoms. No gout. Recent hospital for Afib treated with cardioversion. Afib due to increased stress. Stable now, due to see cardiology in 6months. 08/18/24 patient requests to wean off prednisone. May try decreasing prednisone 3mg twice a day x 1-2weeks, then 2mg twice a day 1-2weeks, then 1mg twice a day x 1-2weeks, then 1mg daily x 1-2weeks, then 1mg every other day x 1-2weeks, then off if tolerated. When off prednisone, may resume celebrex. Please schedule nonfasting labs in 1month. 08/07/24 states he is taking 4mg of prednisone twice daily (would not recommend celebrex) 08/06/24 is there a way to get me off the steroid I'm on and go back on my celebrex it did the same as the steroid actually better I had a watchman device put in my heart I'm on no blood thinners any more thanks 06/30/24 high wbc 12.61, glucose 213, alt 73,uric acid 6.4;low vitamin D 19.2;normal rest of cbc, cmp, esr 12, crp 0.6; limited exercise due to pain. NO new swelling. Chronic current pain in both hands, hips, knees, all over, worse when sitting intermediate. Tried mobic this week mild response. Likes celebrex better and wants to restart celebrex. Reports pain 6-10/16. Has minimal AM stiffness. 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 Feels safe at home. Has enough food, supplies and medications. Overall mildly uncomfortable but happy with rheum care. No falls/fx/trauma/illness/oral sores/rash/hairloss/jaw pain/dysphagia/epistaxis/hemopt ysis since last visit. No adverse effects with meds. No other complaints. Patient denies fever, chills, cp, dyspnea, nausea, vomiting, night sweats, scalp tenderness, visual changes, delgadillo, bowel/bladder changes, weight changes or other complaints. Last visit supportive care, history of 40mg kenalog IM with nurse, see cardiology, improved with medrol 2tabs daily /increase if high APRs/taper monthly when stable and if tolerated, see ortho s/p R THR, due for possible left rotator cuff tear repair (stress dose steroids), then may consider trial of dmards/kevzara/did discuss with patient, improved with celebrex/may take when off medrol, OFF prednisone due to adverse effects/bad mood/etc., see ortho, start gout friendly diet, improved with allopurinol, colchicine, see cardiology s/p Watchman, start prn heat/ice/otc arthritis creams, low impact weightbearing exercise as tolerated, avoid aggravating triggers, 06/30/24: taking allopurinol 100mg daily, vitamin D script, aldactone and hctz, celebrex, eliquis, lipitor. No response with tramadol. NO eye issues. NO PMR/GCA symptoms. NO gout. Has to take medrol two tabs daily due to pain and unable to walk. Wants to increase medrol. Had a reaction with most recent prednisone but had tolerated it long time ago. 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 Off plavix x 2weeks 05/2024 fell twice on ice and steps on ice, bruises R ribs, then had bronchitis, treated with antibiotics tessalon perles. Still has cough 09/05/23 normal esr 2, crp 0.8; 08/02/23 in hospital 07/05/23 low vitamin D 21.4;normal esr 15, crp 0.8, ck 52, aldolase 5.3, vitamin b12-685; 06/28/23 bmd WITHIN THE EXPECTED RANGE FOR AGE Outside 06/12/23 low mag 1.5;high glucose 117;normal cbc, rest of bmp; 04/18/23 in ED for chronic Afib. 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 No new swelling. Chronic current pain in muscles more the joints, weakness of arms and legs. Reports pain 8-10/10. Has minimal AM stiffness. Feels safe at home. Has enough food, supplies and medications. Overall uncomfortable but happy with rheum care. No falls/f (more content not included)... [facility] 09-09-2024 Procedure note [facility] enter 09-02-2024 Telephone encounter Note Patient scheduled on 09/13/2024 [facility] 09-02-2024 Miscellaneous Notes Patient scheduled on 09/13/2024 Please call patent To schedule nonfasting labs Active in 07/2024. Ok to complete at [facility]. Please schedule earlier follow up visit for PMR May offer [facility] (virtual/phone only) 09/13/24 and 10/11/24 are open. Thank you. documented in this encounter [facility] 08-31-2024 Telephone encounter Note Please call patent To schedule nonfasting labs Active in 07/2024. Ok to complete at [facility]. Please schedule earlier follow up visit for PMR May offer [facility] (virtual/phone only) 09/13/24 and 10/11/24 are open. Thank you. [facility] 08-22-2024 History of Presen t illness Narrative Chief Complaint Patient presents with Follow-up 6 month follow up for cardiomyopathy Subjective Esme Steven is a 63 y.o. male HPI Patient is here for follow-up after recent hospitalization. He presented with symptoms shortness of breath and was found to have recurrence of his atrial fibrillation. He was placed back on Eliquis. He has history of Watchman device. I did do a cardioversion last year. The patient continued to complain of fatigue, tiredness and shortness of breath. He denies chest pain. His recent stress test showed inferolateral wall myocardial infarction with mild area of ischemia. The patient atrial fibrillation seem to be asymptomatic. The patient has not been on antiarrhythmic. Assessment 1. Persistent atrial fibrillation status post recent recurrence. His last cardioversion was 1 year ago. He is symptomatic. His heart rate is controlled. He was placed on Eliquis and had been on it for about 10 days 2. Coronary artery disease status post four-vessel bypass surgery with RIVAS to the LAD, SVG to diagonal, SVG to OM and SVG to RCA. He denies chest pain. Described mild shortness of breath. His recent stress test showed inferolateral VT with mild area of ashia-infarction ischemia 3. Hypertension controlled he is on Aldactazide and valsartan 4. Hyperlipidemia controlled on atorvastatin maximum dose 80 mg 5. Obesity no weight changes 6. Sleep apnea on CPAP 7. Hypothyroidism on replacement therapy that the care of his family physician 8. history of mild ischemic cardiomyopathy EF in the 45%. Repeat echo showed no change during recent hospitalization 9. Status post Watchman device. Currently on dual antiplatelet therapy had good tolerance to anticoagulation due to easy bruisability 10. Mildly dilated aortic root at 4.5 cm based on recent CT scan Plan 1. I discussed with him treatment option for atrial fibrillation at great length. We discussed ablation versus antiarrhythmic versus simply proceeding with cardioversion understanding the risk of recurrence following lengthy discussion the patient elected to proceed with simple cardioversion. He understand the risk of recurrence might be in the 50% range if that to happen will consider sotalol or Tikosyn versus ablation. 2. The patient was placed on Eliquis. He describe easy bruisability I told him will switch him back to Plavix after cardioversion 3. Continue aggressive approach risk factor modification with exercise, losing weight e 4. Encouraged him to be compliant with his CPAP 5. I encouraged him to lose weight and exercise 6. I will see him back after cardioversion is done Review of Systems Cardiovascular: Positive for dyspnea on exertion. All other systems reviewed and are negative. Vitals: 08/22/24 0859 BP: 132/86 BP Location: Left arm Patient Position: Sitting Pulse: 95 Weight: 105 kg (232 lb) Height: 1.791 m (5' 10.5 ) Objective Physical Exam Constitutional: Appearance: Normal appearance. HENT: Nose: Nose normal. Neck: Vascular: No carotid bruit. Cardiovascular: Rate and Rhythm: Normal rate. Rhythm regularly irregular. Pulses: Normal pulses. Heart [...] Content: Thought content normal. Judgment: Judgment normal. Allergies Prednisone Current Medications Current Outpatient Medications Medication Instructions allopurinol (Zyloprim) 100 mg tablet 1 tablet, Daily ALPRAZolam (XANAX) 0.5 mg, Nightly PRN aspirin 81 mg, Daily atorvastatin (LIPITOR) 80 mg, Daily clopidogrel (Plavix) 75 mg tablet 1 tablet, Daily (0630) Eliquis 5 mg tablet 1 tablet, Every 12 hours scheduled (0630,1830) escitalopram (Lexapro) 20 mg tablet 1 tablet, Daily levothyroxine (Synthroid, Levoxyl) 150 mcg tablet 1 tablet, Daily before breakfast methylPREDNISolone (MEDROL) 8 mg, Daily metoprolol succinate XL (Toprol-XL) 50 mg 24 hr tablet 1 tablet, Daily spironolacton-hydrochlorothiaz (Aldactazide) 25-25 mg tablet 1 tablet, Daily before breakfast valACYclovir (Valtrex) 500 mg tablet 1 tablet, Daily valsartan (DIOVAN) 80 mg, oral, Daily (0630) Assessment/Plan 1. Persistent atrial fibrillation (Multi) ECG 12 Lead Cardioversion External 2. Multi-vessel coronary artery stenosis Follow Up In Cardiology Follow Up In Cardiology 3. Status post aorto-coronary artery bypass graft 4. Mixed hyperlipidemia 5. Dilated aortic root (CMS-HCC) 6. Cardiomyopathy, ischemic 7. Presence of Watchman left atrial appendage closure device 8. BMI 32.0-32.9,adult 9. Never smoked cigarettes Scribe Attestation By signing my name below, I, Camilo Adame LPNe attest that this documentation has been prepared under the direction and in the presence of Daisy Mora MD. Provider Attestation - Scribe documentation All medical record entries made by the Scribe were at my direction and personally dictated by me. I have reviewed the chart and agree that the record accurately reflects my personal performance of the history, physical exam, discussion and plan. documented in this encounter [facility] Work Phone: 08-22-2024 Instructions Zo Castro LPN - 08/22/2024 9:00 AM EDT Please bring all medicines, vitamins, and herbal supplements with you when you come to the office. Prescriptions will not be filled unless you are compliant with your follow up appointments or have a follow up appointment scheduled as per instruction of your physician. Refills should be requested at the time of your visit. BMI was above normal measurement. Current weight: 105 kg (232 lb) Weight change since last visit (-) denotes wt loss -12 lbs Weight loss needed to achieve BMI 25: 55.6 Lbs Weight loss needed to achieve BMI 30: 20.4 Lbs Provided instructions on dietary changes Provided instructions on exercise. Hold plavix for now. Will discuss stopping eliquis and resuming the plavix after DCC The following attachments cannot be sent through Care Everywhere.Heart Healthy Diet ([place])documented in this encounter [facility] Work Phone: 07-07-2024 Telephone encounter Note Please Call patient if MyChart note not read to review results/released to My Chart if tests completed at [facility]: Mildly high wbc, glucose, and one liver function test- care per primary care provider. High uric acid- maybe associated with gout/water pills, please limit alcohol/red meat/shellfish/pop/corn syrup, will monitor with primary care provider. Increase gout medication allopurinol 200mg daily. Low vitamin D maybe associated with fatigue/joint/muscle pain. Start and stay on vitamin D script with food. Rest of labs normal and no inflammation. New script sent to pharmacy. Notify office if medication change is not tolerated. Recheck nonfasting labs in 3months, orders have been placed. Happy to further review and discuss at follow up visit. Thank you. 06/30/24 high wbc 12.61, glucose 213, alt 73,uric acid 6.4;low vitamin D 19.2;normal rest of cbc, cmp, esr 12, crp 0.6; Patient's request for medication is as follows: Requested Prescriptions Signed Prescriptions Disp Refills allopurinol (ZYLOPRIM) 100 mg tablet 180 tablet 3 Sig: Take 2 tablets by mouth every afternoon. Authorizing Provider: HELADIO PINEDA ergocalciferol 50,000 unit capsule (VITAMIN D2, DRISDOL) 24 capsule 1 Sig: (take by mouth with food twice a week, ONE CAPSULE ON SUNDAY AND ONE ON SUNDAY) FOR A TOTAL OF 10 WEEKS. Then once a week thereafter Authorizing Provider: HELADIO PINEDA Prescription(s) as above. Please process accordingly. Heladio Pineda MD [facility] 07-07-2024 Miscellaneous Notes Please Call patient if MyChart note not read to review results/released to My Chart if tests completed at [facility]: Mildly high wbc, glucose, and one liver function test- care per primary care provider. High uric acid- maybe associated with gout/water pills, please limit alcohol/red meat/shellfish/pop/corn syrup, will monitor with primary care provider. Increase gout medication allopurinol 200mg daily. Low vitamin D maybe associated with fatigue/joint/muscle pain. Start and stay on vitamin D script with food. Rest of labs normal and no inflammation. New script sent to pharmacy. Notify office if medication change is not tolerated. Recheck nonfasting labs in 3months, orders have been placed. Happy to further review and discuss at follow up visit. Thank you. 06/30/24 high wbc 12.61, glucose 213, alt 73,uric acid 6.4;low vitamin D 19.2;normal rest of cbc, cmp, esr 12, crp 0.6; Patient's request for medication is as follows: Requested Prescriptions Signed Prescriptions Disp Refills allopurinol (ZYLOPRIM) 100 mg tablet 180 tablet 3 Sig: Take 2 tablets by mouth every afternoon. Authorizing Provider: HELADIO PINEDA ergocalciferol 50,000 unit capsule (VITAMIN D2, DRISDOL) 24 capsule 1 Sig: (take by mouth with food twice a week, ONE CAPSULE ON SUNDAY AND ONE ON SUNDAY) FOR A TOTAL OF 10 WEEKS. Then once a week thereafter Authorizing Provider: HELADIO PINEDA Prescription(s) as above. Please process accordingly. Heladio Pineda MD documented in this encounter [facility] 07-01-2024 Evaluation note Diagnosis Onset Date Resolution ASHD (arteriosclerotic heart disease) acute July 01, 2024 1:11pm GENESIS (generalized anxiety disorder) acute July 01, 2024 1:11pm Gastroesophageal reflux disease with esophagitis without hemorrhage acute July 01 025 1:11pm Hypothyroid acute July 01 025 1:11pm Macrocytosis without anemia acute July 01, 2024 1:11pm [facility] Work Phone: 1(241) 666-777803-25-2025 Evaluation note* Diagnosis Onset Date Resolution Status Admit Date ASHD (arteriosclerotic heart disease) acute July 01, 2024 1:11pm GENESIS (generalized anxiety disorder) acute July 01, 2024 1:11pm Gastroesophageal reflux dise ase with esophagitis without hemorrhage acute July 01, 2024 1:11pm Hypothyroid acute July 01 025 1:11pm Macrocytosis without anemia acute July 01, 2024 1:11pm Purpura of skin due to vascu lar fragility acute July 30, 2024 9:44am Abdominal pain noneactive July 9:44am Diverticulitis large intestine nonea ctive July 30, 2024 9:44am [facility] Work Phone: 1(922) 405-799703-25-2025 Evaluation note* Diagnosis Onset Date Resolution Status Admit Date ASHD (arteriosclerotic heart disease) acute July 01, 2024 1:11pm GENESIS (generalized anxiety disorder) acute July 01, 2024 1:11pm Gastroesophageal reflux dise ase with esophagitis without hemorrhage acute July 01, 2024 1:11pm Hypothyroid acute July 01, 2 025 1:11pm Macrocytosis without anemia acute July 01, 2024 1:11pm Purpura of skin due to vascu lar fragility acute July 30, 2024 9:44am Abdominal pain noneactive July 9:44am Diverticulitis large intestine nonea ctive July 30, 2024 9:44am Contusion of left hand acute Ap ril 2024 9:03am Left hand pain acute July 9:03am Primary osteoarthritis, righ t hand acute August 04, 2024 9:03am [facility] Work Phone: 1([phone]) 781-618603-25-2025 Evaluation note* Diagnosis Onset Date Resolution Status Admit Date ASHD (arteriosclerotic heart disease) acute July 01, 2024 1:11pm GENESIS (generalized anxiety disorder) acute July 01, 2024 1:11pm Gastroesophageal reflux dise ase with esophagitis without hemorrhage acute July 01, 2024 1:11pm Hypothyroid acute July 01, 2 025 1:11pm Macrocytosis without anemia acute July 01, 2024 1:11pm Purpura of skin due to vascu lar fragility acute July 30, 2024 9:44am Abdominal pain noneactive July 9:44am Diverticulitis large intestine nonea ctive July 30, 2024 9:44am Contusion of left hand acute Ap ril 2024 9:03am Left hand pain acute July 9:03am Primary osteoarthritis, righ t hand acute August 04, 2024 9:03am Contusion of left thigh acute A pril 2024 11:36am History of revision of total replacement of left hip joint acute Ap ril 2024 11:36am [facility] Work Phone: 1(494) 476-606503-25-2025 Evaluation note* Diagnosis Onset Date Resolution Status Admit Date ASHD (arteriosclerotic heart disease) acute July 01, 2024 1:11pm GENESIS (generalized anxiety disorder) acute July 01, 2024 1:11pm Gastroesophageal reflux dise ase with esophagitis without hemorrhage acute July 01, 2024 1:11pm Hypothyroid acute July 01, 2 025 1:11pm Macrocytosis without anemia acute July 01, 2024 1:11pm Purpura of skin due to vascu lar fragility acute July 30, 2024 9:44am Abdominal pain noneactive July 9:44am Diverticulitis large intestine nonea ctive July 30, 2024 9:44am Contusion of left hand acute Ap ril 2024 9:03am Left hand pain acute July 9:03am Primary osteoarthritis, righ t hand acute August 04, 2024 9:03am Contusion of left thigh acute A pril 2024 11:36am History of revision of total replacement of left hip joint acute Ap ril 2024 11:36am Atrial fibrillation acute August 112024 12:48pm Chest pain acute August 11, 2024 12:48pm Unstable angina acute August 11, 2024 12:48pm [facility] Work Phone: 1([phone]) 823-341203-25-2025 Evaluation note* Diagnosis Onset Date Resolution Status Admit Date ASHD (arteriosclerotic heart disease) acute July 01, 2024 1:11pm GENESIS (generalized anxiety disorder) a cute July 01, 2024 1:11pm Gastroesophageal reflux dise ase with esophagitis without hemorrhage acute July 01, 2024 1:11pm Hypothyroid acute July 01, 2 025 1:11pm Macrocytosis without anemia acute July 01, 2024 1:11pm Purpura of skin due to vascu lar fragility acute July 30, 2024 9:44am Abdominal pain noneactive July 9:44am Diverticulitis large intestine nonea ctive July 30, 2024 9:44am Contusion of left hand acute Ap ril 2024 9:03am Left hand pain acute July 9:03am Primary osteoarthritis, right hand a cute August 04, 2024 9:03am Contusion of left thigh acute A pril 2024 11:36am History of revision of total replacement of left hip joint acute Ap ril 2024 11:36am ASHD (arteriosclerotic heart disease) acute August 11, 2024 12:48pm Atrial fibrillation acute August 112024 12:48pm Hyperlipidemia acute August 11, 2 025 12:48pm Paroxysmal atrial fibrillati on with RVR acute August 11, 2024 12:48pm Presence of Watchman left at rial appendage closure device acute August 12:48pm Primary hypertension acute May 5th, 2025 12:48pm Chest pain resolved August 11, 2024 12:48pm Unstable angina resolved August 11, 2024 12:48pm ASHD (arteriosclerotic heart disease) acute August 19, 2024 4:09pm Atrial fibrillation acute August 072024 4:09pm GENESIS (generalized anxiety disorder) a cute August 19, 2024 4:09pm Hypercholesterolemia acute August 19, 2024 4:09pm Hypothyroid acute August 19 4:09pm FER (obstructive sleep apnea) acute August 19, 2024 4:09pm Primary hypertension acute August 19, 2024 4:09pm [facility] Work Phone: 1(117) 177-624403-24-2025 History of Present illness Narrative* Heladio Pineda MD - 06/30/2024 9:40 AM EDT Face to face follow up for joint pain/ osteoarthritis/gout/pseudogout/ rotator cuff tear/PMR/low vitamin D Today's visit 06/30/24: taking allopurinol 100mg daily, vitamin D script, aldactone and hctz, celebrex, eliquis, lipitor. No response with tramadol. NO eye issues. NO PMR/GCA symptoms. NO gout. Has totake medrol two tabs daily due to pain and unable to walk. Wants to increase medrol. Had a reactionwith most recent prednisone but had tolerated it long time ago. 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 Off plavix x 2weeks 05/2024 fell twice on ice and steps on ice, bruises R ribs, then had bronchitis, treated with antibiotics tessalon yasmin. Still has cough 09/05/23 normal esr 2, crp 0.8; 08/02/23 in hospital 07/05/23 low vitamin D 21.4;normal esr 15, crp 0.8, ck 52, aldolase 5.3, vitamin b12-685; 06/28/23 bmd WITHIN THE EXPECTED RANGE FOR AGE Outside 06/12/23 low mag 1.5;high glucose 117;normal cbc, rest of bmp; 04/18/23 in ED for chronic Afib. 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 No new swelling. Chronic current pain in muscles more the joints, weakness of arms and legs. Reports pain 8-10/10. Has minimal AM stiffness. Feels safe at home. Has enough food, supplies and medications. Overall uncomfortable but happy with rheum care. No falls/fx/trauma/illness/oral sores/rash/hairloss/jaw pain/dysphagia/epistaxis/hemoptysis since last visit. No adverse effects with meds. No other complaints. Patient denies fever, chills, cp, dyspnea, nausea, vomiting, night sweats, scalp tenderness, visual changes, delgadillo, bowel/bladder changes, weight changes or other complaints. Last visit supportive care, 40mg kenalog IM with nurse, see cardiology, improved with medrol start 3-4tabs daily /taper monthly if tolerated,see ortho s/p R THR, due for possible left rotator cuff tear repair (stress dose steroids), then may consider trial of dmards/kevzara/did discuss with patient, improved with celebrex/may take when off medrol, OFF prednisone due to adverse effects/bad mood/etc., see ortho, start gout friendly diet, improved with allopurinol, colchicine, see cardiology, start prn heat/ice/otc arthritis creams, low impact weightbearing exercise as tolerated, avoid aggravating triggers, 07/05/23: taking eliquis, OFF medrol since 05/2023, [...] s/p R THR, due for possible left rotatorcuff tear repair~06/2023 (stress dose steroids), then may [...] happy with rheum care. No falls/fx/trauma/illness/oral sores/rash/hairloss/jaw pain/dysphagia/epis taxis/hemoptysis since last visit. No adverse effects with meds. No other complaints. Patient denies fever, chills, cp, dyspnea, nausea, vomiting, night sweats, scalp tenderness, visual changes, delgadillo, bowel/bladder changes, weight changes or other complaints. 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 03/05/23 normal esr 9, crp<0.3; 10/2013 hand xrays-Distal interphalangeal and PIP joint [...] xrays-Marked triscaphe joint space narrowing bilaterally with [id number] contact andsubchondral sclerosis. Mild narrowing of the right third digit MCP joint with small osteophytes. Tiny osteophytes also noted in the left third digit MCP joint. Tiny osteophytes are also seen at the several other PIP and DIP joints. PHYSICAL EXAM:reviewed vitals BP 136/85 Pulse 81 Wt 107 kg (235 lb 14.3 oz) BMI 33.37 kg/m General Appearance: WD/WN, NAD. Appropriate grooming. Very pleasant. Ambulates fair without assistance or without assistive devices, able to move better s/p b/l THR, uncomfortable, SKIN: No rash, no psoriasis, no purpura, [...] calcifications or tophi. No SI tenderness, no jazmyn's tenderness, no heel/plantar tenderness, lumbar flexion full, negative Rosette's test, tinel's and phil tests Swoll JTS:MCPs Tend. JTS:diffusely UEs & LEs, L>R shoulder, diffusely R>L UEs, LEs, improved R hip, decreased range of motion due to pain/unable to abduct due to pain; no warmth/erythema No clinical [...] Toe and heel walk normal. 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 Steven is a 63 year old Wmale with PMH FER/waiting CPAP, [...] than medrol. Only takes celebrex when off steroids.. S/p R THR. Keloid on incision site. Did home PT exercises, off walker and cane. Mild leg edema/ swelling. Chronic current pain in left arm, R upper arm/bicep. Possible 06/2023 left rotatorcuff tear repair vs joint replacement. COVID vaccine 06/04/20, 06/25/20, 04/11/21. taking eliquis, OFF medrol since 05/2023, allopurinoll 100mg daily. 2months ago Left knee gout for 2days. yes PMR,unable to lift UEs, unable to pull up bed covers due to UE pain. he denies GCA. No vitamin D. 04/2023 +COVID19 treated with paxlovid, 04/18/23 went into Afib, due to see cardiology soon taking allopurinol 100mg daily, vitamin D script, aldactone and hctz, celebrex, eliquis, lipitor. No response with tramadol. NO eye issues. NO PMR/GCA symptoms. NO gout. Has to take medrol two tabs daily due to pain and unable to walk. Wants to increase medrol. Had a reaction with most recent prednisone but had tolerated it long time ago. 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 Off plavix x 2weeks 05/2024 fell twice on ice and steps on ice, bruises R ribs, then had bronchitis, treated with antibiotics tessalon perljoyce. Still has cough 09/05/23 normal esr 2, crp 0.8; 08/02/23 in hospital 07/05/23 low vitamin D 21.4;normal esr 15, crp 0.8, ck 52, aldolase 5.3, vitamin b12-685; 06/28/23 bmd WITHIN THE EXPECTED RANGE FOR AGE Outside 06/12/23 low mag 1.5;high glucose 117;normal cbc, rest of bmp; 04/18/23 in ED for chronic Afib. 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 No new swelling. Chronic current pain in muscles more the joints, weakness of arms and legs. Reports pain 8-10/10. Has minimal AM stiffness. Feels safe at home. Has enough food, supplies and medications. Overall uncomfortable but happy with rheum care. Will complete workup for reported symptoms = supportive care, history of 40mg kenalog IM with nurse, see cardiology, improved with medrol 2tabs daily /increase if high APRs/taper monthly when stable and if tolerated, see ortho s/p R THR, due for possible left rotator cuff tear repair (stress dose steroids), then may consider trial of dmards/kevzara/did discuss with patient, improved with celebrex/may take when off medrol, OFF prednisone dueto adverse effects/bad mood/etc., see ortho, start gout friendly diet, improved with allopurinol, colchicine, see cardiology s/p Watchman, start prn heat/ice/otc arthritis creams, low impact weightbearing exercise as tolerated, avoid aggravating triggers, answered all questions and concerns, patient voiced understanding. RECOMMENDATION/PLAN: Office Visit on 06/30/24 COMPREHENSIVE METABOLIC PANEL COMPLETE BLOOD COUNT SEDIMENTATION RATE, WESTERGREN C-REACTIVE PROTEIN VITAMIN D 25 HYDROXY URIC ACID Reviewed all available labs/tests with patient Provided printed info 07/05/23 IM 40mg kenalog with nurse 06/30/24 check nonfasting today and in 1month Modified 06/30/24 HATTIE 0, pain 80-100%;07/05/23 HATTIE 0, pain 70-90%;03/05/23 HATTIE 0, pain 30-40%;January 05, 2023 HAQ0, [...] touching your toes, sit-ups, using row machine exterminator pain recommendations per primary care provider/pain clinic [...] Patient agrees to plan as noted above. The above reflects my independent exam and review. I saw and examined the patient myself personally. Parts of the HPI, ROS, exam and impression/plan may have been copied from my personal previous clinical note and remain pertinent. Current changes have been made and documented today. Other parts ordata were deleted if not relevant for today. Plan as outlined. Medical decision making was high complexity due to patient's, multiple symptoms, multiple advancing diseases. Total time spent on this visit, with [...] phone/virtual or office visit with an additional 10-15 minutes which included preparing to talk with the patient via video & audio (virtual) or phone or [id number] patient care, completing clinical documentation, obtaining and/orreviewing separately obtained history, review all available records, performing a medically appropri ate examination, counseling and educating the patient/family/caregiver, ordering medications, tests, or procedures, communicating with other HCPs (not separately reported), independently interpretingresults (not separately reported), communicating results to the patient/family/caregiver and care co ordination (not separately reported) Follow up 6months, earlier [...] consult by letter/electronic shared medical records. cc DO CAMILA Renae AMBULATORY VISIT INTAKE QUESTIONNAIRE Question 06/25/2024 11:14 AM EDT - Filed by Patient Has the patient had unintentional weight loss or gain? No Do you have concerns about personal safety or safety in the home? No Has the Patient Had 2 Falls in the Last Year or 1 Fall with Injury or Currently Using an AmbulatoryAssistive Device (Walker, Cane, Wheelchair, Crutches, etc.) No Are you having pain associated with your visit today? Yes What is your Pain Level? 7 Pain Location Description Duration Amount of Time Duration Units Days Frequency Continuous Intervention/Comfort measure Comments [facility] MYCHARYasmine ADDITIONAL DEMO Question 06/25/2024 11:14 AM EDT - Filed by Patient Is this visit related to an accident, other than Workers' Compensation? No Is this visit related to Workers' Compensation? No Do you need an painter spray? No documented in this encounterAdena [facility]03-[facility] NoteHNO ID: [id number] Author: HELADIO PINEDA MD Service: ? Author Type: Physician Type: Progress Notes Filed: 06/30/2024 10:12 Note Text: Face to face follow up for joint pain/ osteoarthritis/gout/pseudogout/ rotator cuff tear/PMR/low vitamin D Today's visit 06/30/24: taking allopurinol 100mg daily, vitamin D script, aldactone and hctz, celebrex, eliquis, lipitor. No response with tramadol. NO eye issues. NO PMR/GCA symptoms. NO gout. Has to take medrol two tabs daily due to pain and unable to walk. Wants to increase medrol. Had a reaction with most recent prednisone but had tolerated it long time ago. 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 Off plavix x 2weeks 05/2024 fell twice on ice and steps on ice, bruises R ribs, then had bronchitis, treated with antibiotics tessalon perles. Still has cough 09/05/23 normal esr 2, crp 0.8; 08/02/23 in hospital 07/05/23 low vitamin D 21.4;normal esr 15, crp 0.8, ck 52, aldolase 5.3, vitamin b12-685; 06/28/23 bmd WITHIN THE EXPECTED RANGE FOR AGE Outside 06/12/23 low mag 1.5;high glucose 117;normal cbc, rest of bmp; 04/18/23 in ED for chronic Afib. 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 No new swelling. Chronic current pain in muscles more the joints, weakness of arms and legs. Reports pain 8-10/10. Has minimal AM stiffness. Feels safe at home. Has enough food, supplies and medications. Overall uncomfortable but happy with rheum care. No falls/fx/trauma/illness/oral sores/rash/hairloss/jaw pain/dysphagia/epistaxis/hemoptysis since last visit. No adverse effects with meds. No other complaints. Patient denies fever, chills, cp, dyspnea, nausea, vomiting, night sweats, scalp tenderness, visual changes, delgadillo, bowel/bladder changes, weight changes or other complaints. Last visit supportive care, 40mg kenalog IM with nurse, see cardiology, improved with medrol start 3-4tabs daily /taper monthly if tolerated, see ortho s/p R THR, due for possible left rotator cuff tear repair (stress dose steroids), then may consider trial of dmards/kevzara/did discuss with patient, improved with celebrex/may take when off medrol, OFF prednisone due to adverse effects/bad mood/etc., see ortho, start gout friendly diet, improved with allopurinol, colchicine, see cardiology, start prn heat/ice/otc arthritis creams, low impact weightbearing exercise as tolerated, avoid aggravating triggers, 07/05/23: taking eliquis, OFF medrol since 05/2023, [...] weightbearing exercise as tolerated, avoid aggravating triggers, 11/27/23:due for labs. Due for bmd. taking medrol [...] Overall mildly uncomfortable but happy with rheum (more content not included)...[facility]03-23-2025 Instructions* Patient Instructions* Heladio Pineda MD - 06/29/2024 8:09 PM EDT May apply over the counter [...] touching your toes, sit-ups, using row machine exterminator pain recommendations per primary care provider/pain clinic Nonfasting labs as scheduled Thank you. 09/05/23 normal esr 2, crp 0.8; 06/28/23 bmd WITHIN THE EXPECTED RANGE FOR AGE Latest Ref Rng 03/05/2023 WSR 0 - 15 mm/hr 9 CRP <0.9 mg/dL <0.3 Component Latest Ref Rng & Units 01/05/2023 [...] Ab, Total Negative Negative documented in this encounterAdena [facility]01-24-[facility] Evaluation note* Diagnosis Onset Date Resolution Status Admit Date Acute bronchitis due to othe r specified organisms acute April 2:00pm Chest wall contusion acute 2024 2:00pm [facility] Work Phone: 1(525) 556-396612-25-2024 Miscellaneous Notes* Telephone Encounter - Bert Newman LPN - 04/02/2024 12:37 AM EST Con 06/04/23 Bmp, mag 06/12/23 [facility] encounter Note* Telephone Encounter - Bert Newman LPN - 04/02/2024 12:37 AM EST Con 06/04/23 Bmp, mag 06/12/23 [id number]* Diagnosis Onset Date Resolution Status Admit Date Acute bronchitis due to othe r specified organisms acute March 3:02pm ASHD (arteriosclerotic heart disease) acute March 17 3:02pm Cough acute March 17, 2024 3:02pm Acute bronchitis due to othe r specified organisms acute April 2:00pm Chest wall contusion acute Juan [email or web address] 2:00pm [facility] Work Phone: 1(851) 156-736311-07-2024 History of Present illness Narrative* Daisy Mora MD - 02/14/2024 2:00 PM EST Subjective Esme Steven is a 63 y.o. male Chief Complaint Follow-up HPI Patient is here for follow-up to management for persistent atrial fibrillation containing sinus rhythm, coronary artery disease, hypertension hyperlipidemia. Since last time I saw him he denies any change in cardiac status or symptoms. He underwent a Watchman device implantation due to intolerance to anticoagulation. This was done without any issues or complication. He denies lightheadedness, dizziness or syncope. Assessment 1. Persistent atrial fibrillation status post recent cardioversion. Remained in normal sinus rhythm 2. Coronary artery disease status post four-vessel bypass surgery with RIVAS to the LAD, SVG to diagonal, SVG to OM and SVG to RCA 3. Hypertension 4. Hyperlipidemia 5. Obesity 6. Sleep apnea on CPAP 7. Hypothyroidism on replacement therapy 8. history of mild ischemic cardiomyopathy EF in the 45% 9. Status post Watchman device. Currently on dual antiplatelet therapy had good tolerance to anticoagulation 10. Mildly dilated aortic root at 4.5 cm based on recent CT scan Plan 1. I reviewed with him the result of his recent hospitalization and Watchman device workup 2. Will consider antiarrhythmic and/or ablation if he has any recurrence in the future 3. Continue aggressive approach risk factor modification with exercise, losing weight 4. Encouraged him to be compliant with his CPAP 5. I encouraged him to lose weight and exercise 6. I will see him back in the office in 6 months plan to repeat lab work and do an EKG next office visit 7. Will see him will stop Plavix and add CALEB inhibitors Review of Systems All other systems reviewed and are negative. Vitals: 02/14/24 1351 BP: 130/80 BP Location: Left arm Patient Position: Sitting Weight: 111 kg (244 lb) Height: 1.778 m (5' 10 ) Objective Physical Exam Constitutional: Appearance: Normal appearance. HENT: Nose: Nose normal. Neck: Vascular: No carotid bruit. Cardiovascular: Rate and Rhythm: Normal rate. Pulses: Normal pulses. Heart sounds: Normal heart [...] Content: Thought content normal. Judgment: Judgment normal. Allergies Prednisone Current Medications Current Outpatient Medications: allopurinol (Zyloprim) 100 mg tablet, Take 1 tablet (100 mg) by mouth once daily., Disp: , Rfl: ALPRAZolam (Xanax) 0.5 mg tablet, Take 1 tablet (0.5 mg) by mouth as needed at bedtime for sleep., Disp: , Rfl: aspirin 81 mg EC tablet, Take 1 tablet (81 mg) by mouth 2 times a week., Disp: , Rfl: atorvastatin (Lipitor) 80 mg tablet, Take 1 tablet (80 mg) by mouth once daily., Disp: , Rfl: clopidogrel (Plavix) 75 mg tablet, Take 1 tablet (75 mg) by mouth once daily for 180 doses. Do not fill before January 30, 2024., Disp: 30 tablet, Rfl: 5 escitalopram (Lexapro) 20 mg tablet, Take 1 tablet (20 mg) by mouth once daily., Disp: , Rfl: levothyroxine (Synthroid, Levoxyl) 150 mcg tablet, Take 1 tablet (150 mcg) by mouth once daily in the morning. Take before meals., Disp: , Rfl: methylPREDNISolone (Medrol) 4 mg tablet, Take 2 tablets (8 mg) by mouth once daily., Disp: , Rfl: metoprolol succinate XL (Toprol-XL) 50 mg 24 hr tablet, Take 1 tablet (50 mg) by mouth once daily.,Disp: , Rfl: spironolacton-hydrochlorothiaz (Aldactazide) 25-25 mg tablet, Take 1 tablet (25 mg) by mouth once daily in the morning. Take before meals., Disp: , Rfl: valACYclovir (Valtrex) 500 mg tablet, Take 1 tablet (500 mg) by mouth once daily., Disp: , Rfl: Assessment/Plan 1. Persistent atrial fibrillation (Multi) 2. Status post aorto-coronary artery bypass graft 3. Presence of Watchman left atrial appendage closure device 4. Multi-vessel coronary artery stenosis Follow Up In Cardiology 5. Mixed hyperlipidemia Lipid Panel Lipid Panel 6. Cardiomyopathy, ischemic 7. Dilated aortic root (CMS-HCC) 8. Never smoked cigarettes 9. BMI 35.0-35.9,adult Scribe Attestation By signing my name below, I, Zo Smalls LPN , Scribjackie attest that this documentation has been prepared [...] exam, discussion and plan. documented in this [facility] Work Phone: [phone] 528-183911-07-2024 Instructions* Patient Instructions* Zo Castro LPN - 02/14/2024 2:00 PM EST Please bring all medicines, vitamins, and herbal supplements with you when you come to the office. Prescriptions will not be filled unless you are compliant with your follow up appointments or have a follow up appointment scheduled as per instruction of your physician. Refills should be requested at the time of your visit. BMI was above normal measurement. Current weight: 111 kg (244 lb) Weight change since last visit (-) denotes wt loss -0.71 lbs Weight loss needed to achieve BMI 25: 70.1 Lbs Weight loss needed to achieve BMI 30: 35.4 Lbs Provided instructions on dietary changes Provided instructions on exercise. * Attachments The following attachments cannot be sent through Care Everywhere. * Heart Healthy Diet (Sri Lankan) documented in this [facility] Work Phone: [phone]) 385-744311-05-2024 Evaluation note* Diagnosis Onset Date Resolution Status Admit Date Primary osteoarthritis, righ t hand acute February 11 1:35pm Biceps tendonitis on right acute February 18, 2024 9:37am Rotator cuff syndrome of right shoulder acute February 17, 2 024 9:37am Traumatic complete tear of left rotator cuff acute February 18, 2024 9:37am [facility] Work Phone: [phone] Evaluation note* Diagnosis Onset Date Resolution Status Admit Date Primary osteoarthritis, righ t hand acute February 11 1:35pm Biceps tendonitis on right acute February 18, 2024 9:37am Rotator cuff syndrome of right shoulder acute February 17, 2 024 9:37am Traumatic complete tear of left rotator cuff acute February 18, 2024 9:37am Acute bronchitis due to othe r specified organisms acute March 3:02pm ASHD (arteriosclerotic heart disease) acute March 17 3:02pm Cough acute March 17, 2024 3:02pm Acute bronchitis due to othe r specified organisms acute April 2:00pm [facility] Work Phone: [phone] 680-968310-22-2024 Hospital course Narrative* Bruno Almaguer MD - 01/29/2024 3:38 PM EDT Discharge Diagnosis Atrial fibrillation (Multi) Issues Requiring Follow-Up DAPT Hospital Course LAAO D/C summary statement: The patient underwent successful Left atrial appendage closure with a 27 mm WATCHMAN FLX pro under ICE guidance. pre and post procedural TTE was obtained and demonstrated no significant changes. The patient tolerated the post procedural monitoring period without any bleeding, arrhythmia or hypotension. S/p MARIO closure on 01/29/2024 Access: Dual right femoral vein access s/p 1 perclose and 1 vascade closure devices. Device: After confirmation of the device position on fluoroscopy and ICE, anchor with a tug test, compression and seal a 27 mm Watchman was successfully deployed without any immediate complications. No effusion on ICE was present. Post procedural TTE: No significant pericardial effusion. The patient was discharge home in satisfactory condition. Pertinent Physical Exam At Time of Discharge Physical Exam AO x 3 CVS- normal s1, s2, no murmurs Resp -CTAB Abd- Soft, NT, ND Neuro No gross motor. Sensory deficits Groin access sites no hematoma, swelling No LE edema Home Medications Medication List ASK your doctor about these medications allopurinol 100 mg tablet; Commonly known as: Zyloprim ALPRAZolam 0.5 mg tablet; Commonly known as: Xanax aspirin 81 mg EC tablet atorvastatin 80 mg tablet; Commonly known as: Lipitor Eliquis 5 mg tablet; Generic drug: apixaban escitalopram 20 mg tablet; Commonly known as: Lexapro levothyroxine 150 mcg tablet; Commonly known as: Synthroid, Levoxyl methylPREDNISolone 4 mg tablet; Commonly known as: Medrol metoprolol succinate XL 50 mg 24 hr tablet; Commonly known as: Toprol-XL spironolacton-hydrochlorothiaz 25-25 mg tablet; Commonly known as: Aldactazide valACYclovir 500 mg tablet; Commonly known as: Valtrex Outpatient Follow-Up Future Appointments Date Time Provider Department Center 02/14/2024 2:00 PM Daisy Mora MD [id number] [place] 04/28/2024 8:40 AM Daisy Mora MD [id number] [place] 05/20/2024 10:30 AM [id number] 1 [id number] [place] Bruno Almaguer MD documented in this [facility] Work Phone: [phone] Note* Post-Procedure Note - Bruno Almaguer MD - 01/29/2024 12:08 PM EDT Physician Transition of Care Summary Invasive Cardiovascular Lab Procedure Date: 01/29/2024 Attending: * Bird Kowalski - Primary Resident/Fellow/Other Freezer Assistant: Surgeons and Role: * Bruno Almaguer MD - Fellow Indications: Pre-op Diagnosis * Atrial fibrillation, unspecified type (Multi) [I48.91] Post-procedure diagnosis: Post-op Diagnosis * Atrial fibrillation, unspecified type (Multi) [I48.91] Procedure(s): LAAO (Left Atrial Appendage Occlusion) 36020 - CT PERQ CLSR TCAT L ATR APNDGE W/ENDOCARDIAL IMPLNT CT PERQ CLSR TCAT L ATR APNDGE W/ENDOCARDIAL IMPLNT [[id number]] Description of the Procedure: S/p MARIO closure Access: Dual right femoral vein access s/p proglide and vascade closure devices. Device: After confirmation of the device position on fluoroscopy and ICE, anchor with a tug test, compression and seal a 27 mm Watchman was successfully deployed without any immediate complications. No effusion on ICE was present pre and post watchman deployment. Complications: none Stents/Implants: Implants Other Cardiac Implant Device, Closure, 27mm Watchman Flx Pro Laac - [id number] - Implanted Inventory item: DEVICE, CLOSURE, 27MM WATCHMAN FLX PRO LAAC Model/Cat number: [id number] Clinical Case Manager: [employer] Lot number: [id number] Device identifier: [id number] As of 01/29/2024 Status: Implanted Anticoagulation/Antiplatelet Plan: DAPT Estimated Blood Loss: 5 mL Contrast 30ml Anesthesia: Moderate Sedation Anesthesia Staff: No anesthesia staff entered. Any Specimen(s) Removed: Order Name Source Comment Collection Info Order Time BASIC METABOLIC PANEL Blood, Venous Collected By: Telma Steward RN 01/29/2024 9:31 AM Release result to [facility] Immediate MAGNESIUM Blood, Venous Collected By: Telma Steward RN 01/29/2024 9:31 AM Release result to [facility] Immediate CBC WITH AUTO DIFFERENTIAL Blood, Venous Collected By: Telma Steward RN 01/29/2024 9:31 AM Release result to [facility] Immediate PROTIME-INR Blood, Venous Collected By: Telma Steward RN 01/29/2024 9:31 AM Release result to [facility] Immediate TYPE AND SCREEN Blood, Venous Collected By: Telma Steward RN 01/29/2024 9:31 AM Release result to [facility] Immediate Disposition: ASA and Plavix for 6 months followed by ASA for life CT in 4 months Access site monitoring. TTE today Likely discharge home today once recovery and monitoring period is complete. Electronically signed by: Bruno Almaguer MD, 01/29/2024 1:45 PM [facility] Work Phone: [phone]) 951-303810-22-2024 Miscellaneous Notes* Post-Procedure Note - Bruno Almaguer MD - 01/29/2024 12:08 PM EDT Physician Transition of Care Summary Invasive Cardiovascular Lab Procedure Date: 01/29/2024 Attending: * Bird Kowalski - Primary Resident/Fellow/Other Freezer Assistant: Surgeons and Role: * Bruno Almaguer MD - Fellow Indications: Pre-op Diagnosis * Atrial fibrillation, unspecified type (Multi) [I48.91] Post-procedure diagnosis: Post-op Diagnosis * Atrial fibrillation, unspecified type (Multi) [I48.91] Procedure(s): LAAO (Left Atrial Appendage Occlusion) 37863 - CT PERQ CLSR TCAT L ATR APNDGE W/ENDOCARDIAL IMPLNT CT PERQ CLSR TCAT L ATR APNDGE W/ENDOCARDIAL IMPLNT [[id number]] Description of the Procedure: S/p MARIO closure Access: Dual right femoral vein access s/p proglide and vascade closure devices. Device: After confirmation of the device position on fluoroscopy and ICE, anchor with a tug test, compression and seal a 27 mm Watchman was successfully deployed without any immediate complications. No effusion on ICE was present pre and post watchman deployment. Complications: none Stents/Implants: Implants Other Cardiac Implant Device, Closure, 27mm Watchman Flx Pro Laac - [id number] - Implanted Inventory item: DEVICE, CLOSURE, 27MM WATCHMAN FLX PRO LAAC Model/Cat number: [id number] Clinical Case Manager: [employer] Lot number: [id number] Device identifier: [id number] As of 01/29/2024 Status: Implanted Anticoagulation/Antiplatelet Plan: DAPT Estimated Blood Loss: 5 mL Contrast 30ml Anesthesia: Moderate Sedation Anesthesia Staff: No anesthesia staff entered. Any Specimen(s) Removed: Order Name Source Comment Collection Info Order Time BASIC METABOLIC PANEL Blood, Venous Collected By: Telma Steward RN 01/29/2024 9:31 AM Release result to MyChart Immediate MAGNESIUM Blood, Venous Collected By: Telma Steward RN 01/29/2024 9:31 AM Release result to MyChart Immediate CBC WITH AUTO DIFFERENTIAL Blood, Venous Collected By: Telma Steward RN 01/29/2024 9:31 AM Release result to MyChart Immediate PROTIME-INR Blood, Venous Collected By: Telma Steward RN 01/29/2024 9:31 AM Release result to MyChart Immediate TYPE AND SCREEN Blood, Venous Collected By: Telma Steward RN 01/29/2024 9:31 AM Release result to MyChart Immediate Disposition: ASA and Plavix for 6 months followed by ASA for life CT in 4 months Access site monitoring. TTE today Likely discharge home today once recovery and monitoring period is complete. Electronically signed by: Bruno Almaguer MD, 01/29/2024 1:45 PM * Pre-Sedation Documentation - Bruno Almaguer MD - 01/29/2024 10:27 AM EDT Patient: Esme Steven NPO guidelines met: Yes Physical Exam Airway Mallampati: III Cardiovascular Dental Pulmonary Plan ASA 3 Mild [facility] Work Phone: 1(580) 441-745210-22-2024 History of Present illness Narrative* Olivier Hopkins, PharmD - 01/29/2024 10:30 AM EDT Pharmacy Medication History Review Esme Steven is a 63 y.o. male admitted for Atrial fibrillation (Multi). Pharmacy reviewed the patient's jirrk-vj-vgnfoixup medications and allergies for accuracy. Medications ADDED: None Medications CHANGED: Medrol Medications REMOVED: None The list below reflects the updated FISH AGENT list. Prior to Admission Medications Prescriptions Last Dose Informant ALPRAZolam (Xanax) 0.5 mg tablet 01/28/2024 Evening Self Sig: Take 1 tablet (0.5 mg) by mouth as needed at bedtime for sleep. Eliquis 5 mg tablet 01/25/2024 Self Sig: Take 1 tablet (5 mg) by mouth 2 times a day. allopurinol (Zyloprim) 100 mg tablet 01/29/2024 Morning Self Sig: Take 1 tablet (100 mg) by mouth once daily. aspirin 81 mg EC tablet 01/24/2024 Self Sig: Take 1 tablet (81 mg) by mouth 2 times a week. atorvastatin (Lipitor) 80 mg tablet 01/28/2024 Evening Self Sig: Take 1 tablet (80 mg) by mouth once daily. escitalopram (Lexapro) 20 mg tablet 01/28/2024 Evening Self Sig: Take 1 tablet (20 mg) by mouth once daily. levothyroxine (Synthroid, Levoxyl) 150 mcg tablet 01/29/2024 Morning Self Sig: Take 1 tablet (150 mcg) by mouth once daily in the morning. Take before meals. methylPREDNISolone (Medrol) 4 mg tablet 01/29/2024 Morning Self Sig: Take 2 tablets (8 mg) by mouth once daily. metoprolol succinate XL (Toprol-XL) 50 mg 24 hr tablet 01/29/2024 Morning Self Sig: Take 1 tablet (50 mg) by mouth once daily. spironolacton-hydrochlorothiaz (Aldactazide) 25-25 mg tablet 01/28/2024 Self Sig: Take 1 tablet (25 mg) by mouth once daily in the morning. Take before meals. valACYclovir (Valtrex) 500 mg tablet 01/29/2024 Morning Self Sig: Take 1 tablet (500 mg) by mouth once daily. Facility-Administered Medications: None The list below reflects the updated allergy list. Please review each documented allergy for additional clarification and justification. Allergies Reviewed by Olivier Hopkins, PharmD on 01/29/2024 Severity Reactions Comments Prednisone Not Specified Other, Headache Light sensitivity. Able to tolerate medrol Patient declines M2B at discharge. Sources: [facility] Pharmacy dispense history Patient interview Additional Comments: None Olivier Hopkins PharmD Transitions of Care Pharmacist 01/29/24 Secure Chat preferred If no response call [phone] or Vocera Med Rec [facility] Work Phone: [phone] 194-254310-22-2024 Note* Pre-Sedation Documentation - Bruno Almaguer MD - 01/29/2024 10:27 AM EDT Patient: Esme Steven NPO guidelines met: Yes Physical Exam Airway Mallampati: III Cardiovascular Dental Pulmonary Plan ASA 3 Mild [facility] Work Phone: [phone]) 326-535810-22-2024 History and physical note* Bruno Almaguer MD - 01/29/2024 10:08 AM EDT History Of Present Illness This is a 63-year-old male with multiple medical issues including multivessel coronary artery disease, ischemic cardiomyopathy with mildly reduced LV systolic function and persistent atrial fibrillation. Given the patient's significant risk of bleeding, active lifestyle, fall risk, and need for lifelong antiplatelet therapy for his multivessel coronary disease, the patient is referred for consideration of left atrial appendage closure for stroke risk reduction. The CHADS-VASC score is 2 and HAS-BLED score is 3. Past Medical History Past Medical History: Diagnosis Date Coronary artery disease Hyperlipidemia Hypertension Surgical History Past Surgical History: Procedure Laterality Date APPENDECTOMY BACK SURGERY CARDIOVERSION 08/02/2023 COLONOSCOPY CORONARY ARTERY BYPASS GRAFT TOTAL HIP ARTHROPLASTY Bilateral TOTAL KNEE ARTHROPLASTY Bilateral Social History He reports that he has never smoked. He has never used smokeless tobacco. He reports current alcohol use of about 7.0 standard drinks of alcohol per week. He reports that he does not use drugs. Family History No family history on file. Allergies Prednisone Review of Systems Constitutional: no fatigue, no fevers, no body aches Eyes: no acute eye problems, no blurred vision, no diplopia, no eye pain ENT: no acute hearing loss, no earache, no sore throat Cardiovascular: dyspnea on exertion, no chest pain Respiratory: no chronic cough, not coughing up sputum, no wheezing that is consistent with asthma Gastrointestinal: no acute bowel complaints Musculoskeletal: no acute arthralgias, no acute myalgias, no acute joint swelling Skin: no skin rashes, no change in skin color and pigmentation, bruising across his arms and no skin lumps. Neurological: no headaches, no dizziness, no tingling, no fainting and no limb weakness. Psychiatric: no suicidal ideation, no confusion, no personality change and no emotional problems. Hematologic/Lymphatic: no bleeding issues, other then mentioned in HPI All other systems have been reviewed and are negative for complaint. Physical Exam AO x 3 CVS- normal s1, s2, no murmurs Resp -CTAB Abd- Soft, NT, ND Neuro No gross motor. Sensory deficits No LE edema Assessment/Plan Assessment & Plan Atrial fibrillation (Multi) Atrial fibrillation, unspecified type (Multi) Presence of Watchman left atrial appendage closure device LAAO procedure today I spent 30 minutes in the professional and overall care of this patient. Bruno Almaguer MD [facility] Work Phone: 1([phone]) 284-774110-22-2024 History and physical note* Bruno Almaguer MD - 01/29/2024 10:08 AM EDT History Of Present Illness This is a 63-year-old male with multiple medical issues including multivessel coronary artery disease, ischemic cardiomyopathy with mildly reduced LV systolic function and persistent atrial fibrillation. Given the patient's significant risk of bleeding, active lifestyle, fall risk, and need for lifelong antiplatelet therapy for his multivessel coronary disease, the patient is referred for consideration of left atrial appendage closure for stroke risk reduction. The CHADS-VASC score is 2 and HAS-BLED score is 3. Past Medical History Past Medical History: Diagnosis Date Coronary artery disease Hyperlipidemia Hypertension Surgical History Past Surgical History: Procedure Laterality Date APPENDECTOMY BACK SURGERY CARDIOVERSION 08/02/2023 COLONOSCOPY CORONARY ARTERY BYPASS GRAFT TOTAL HIP ARTHROPLASTY Bilateral TOTAL KNEE ARTHROPLASTY Bilateral Social History He reports that he has never smoked. He has never used smokeless tobacco. He reports current alcohol use of about 7.0 standard drinks of alcohol per week. He reports that he does not use drugs. Family History No family history on file. Allergies Prednisone Review of Systems Constitutional: no fatigue, no fevers, no body aches Eyes: no acute eye problems, no blurred vision, no diplopia, no eye pain ENT: no acute hearing loss, no earache, no sore throat Cardiovascular: dyspnea on exertion, no chest pain Respiratory: no chronic cough, not coughing up sputum, no wheezing that is consistent with asthma Gastrointestinal: no acute bowel complaints Musculoskeletal: no acute arthralgias, no acute myalgias, no acute joint swelling Skin: no skin rashes, no change in skin color and pigmentation, bruising across his arms and no skin lumps. Neurological: no headaches, no dizziness, no tingling, no fainting and no limb weakness. Psychiatric: no suicidal ideation, no confusion, no personality change and no emotional problems. Hematologic/Lymphatic: no bleeding issues, other then mentioned in HPI All other systems have been reviewed and are negative for complaint. Physical Exam AO x 3 CVS- normal s1, s2, no murmurs Resp -CTAB Abd- Soft, NT, ND Neuro No gross motor. Sensory deficits No LE edema Assessment/Plan Assessment & Plan Atrial fibrillation (Multi) Atrial fibrillation, unspecified type (Multi) Presence of Watchman left atrial appendage closure device LAAO procedure today I spent 30 minutes in the professional and overall care of this patient. Bruno Almaguer MD documented in this [facility] Work Phone: [phone]) 101-315010-22-2024 Hospital Discharge instructions* Discharge Instructions* Sammi Loredo APRN-LINE PERSON - 01/29/2024 9:41 AM EDT Watchman Discharge Instructions Anticoagulation Plan: You are being discharged on Aspirin and Plavix for 6 months (Plavix will be stopped after 6 months and you will remain on 81mg Aspirin for life). You will have a 4 month CTA to assess the effectiveness of the Watchman Device. General Instructions: DO NOT drink any alcoholic drinks or take any non-prescriptive medications that contain alcohol forthe first 24 hours. DO NOT make any important decisions for the first 24 hours. Activity: You are advised to go directly home from the hospital. DO NOT lift anything heavier than 10 pounds for one week, this allows for proper healing of the groin. No excessive exercise or treadmill use for one week. You may walk and do stairs, slowly. No sexual activities for 24 hours after you arrive home. Wound Care: If slight bleeding should occur at site, lie down and have someone apply firm pressure just above the puncture site for 5 minutes. If it continues or is profuse, call 911. Always notify your doctor if bleeding occurs. Keep site clean and dry. Let air dry or you may use a simple bandaid. Gently cleanse the puncture site in your groin with soap and water only. You may experience some tenderness, bruising or minimal inflammation. If you have any concerns, youmay contact the [employer] or if any of these symptoms become excessive, contact your air pollution compliance inspector tonny to the emergency room. No tub baths, soaking, or swimming for one week. May shower the next day after your procedure. Diet: You may resume your normal diet. However it is better to start with liquids such as juices then soup and crackers, and gradually work up to solid foods. Other Instructions: If you develop difficulty breathing, rash, hives, severe nausea, vomiting, light-headedness or any signs of infection, immediately contact your doctor and go to the nearest emergency room. You must take your aspirin, clopidogrel (Plavix), prasugrel (Effient), or ticagrelor (Brilinta) every day without missing a single dose. If you are getting low on these medications, contact your physician immediately for a refill. - CALL 911 IF YOU HAVE ANY OF THE SIGNS AND SYMPTOMS OF HEART FAILURE: 1. Chest pain 2. SignificantShortness of breath 3. Fainting. Call Provider If (Home-going Patients): Breathing faster than normal. Breathing harder than normal or having retractions. Fever of 100.4 F (38 C) or higher. Chills. Drinking less than normal. Urinating less than normal, over 1 day. Acting very sleepy and difficult to awaken. Vomiting (throwing up) and not able to eat or drink for 12 hours. 3 or more loose, watery bowel movements in 24 hours (diarrhea). Any new concerning symptoms. Please call the STRUCTURAL HEART TEAM LINE if you have any questions or concerns - [phone] documented in this [facility] Work Phone: 1(221) 655-432809-23-2024 [facility] History of Present illness Narrative* Bird Kowalski MD - 12/19/2023 10:15 AM EDT Images from the original note were not included. Cardio: Dr. Abby Boothe was asked by Dr. Mora to evaluate this patient in consultation for evaluation of left atrial appendage closure. The patient is a 62-year-old male with known coronary artery disease, prior coronary bypass graft surgery including RIVAS to LAD, SVG to diagonal, SVG to OM and SVG to RCA, hypertension, FER, hyperlipidemia and persistent atrial fibrillation. 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 Last year he had a major fall with intense bruising and hematoma on left side but didn't look for medical care at the time. He report that frequently gets injury on hisshop and the bruising events got worse after initiating Eliquis last February. The patient has mildly reduced left ventricular ejection fraction, LVEF 45%. He denies GI bleeding events and stroke. Patient is on rhythm control strategy and has undergone successful cardioversion. He is on chronic anticoagulation but has had issues related to bruisability and has had to reduce the frequency of aspirin to twice weekly. 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 He is frequently working with heavy equipment and machinery for repair of these carts. He commonly has incidental injury of his upper and lower extremities with prominent bleeding sequela. He is also had a recent mechanical fall. Given the patient's significant risk of bleeding recent fall and need for lifelong antiplatelet therapy for his multivessel coronary disease, the patient is referred for consideration of left atrial appendage closure for stroke risk reduction. ROS: Constitutional: no fatigue, no fevers, no body aches Eyes: no acute eye problems, no blurred vision, no diplopia, no eye pain ENT: no acute hearing loss, no earache, no sore throat Cardiovascular: dyspnea on exertion, no chest pain Respiratory: no chronic cough, not coughing up sputum, no wheezing that is consistent with asthma Gastrointestinal: no acute bowel complaints Musculoskeletal: no acute arthralgias, no acute myalgias, no acute joint swelling Skin: no skin rashes, no change in skin color and pigmentation, bruising across his arms and no skin lumps. Neurological: no headaches, no dizziness, no tingling, no fainting and no limb weakness. Psychiatric: no suicidal ideation, no confusion, no personality change and no emotional problems. Hematologic/Lymphatic: no bleeding issues, other then mentioned in HPI All other systems have been reviewed and are negative for complaint. Physical Exam: Visit Vitals Smoking Status Never Constitutional: alert and in no acute distress. Extensive bruises on arms and legs during the encounter. Eyes: no erythema, swelling or discharge from the eye . Ears, Nose, Mouth, and Throat: external inspection of ears and nose is normal , lips, teeth, and gums are normal with good dentition and oropharynx normal with no erythema, edema, exudate or lesions . Neck: neck is supple, symmetric, trachea midline, no masses and no thyromegaly . Pulmonary: no increased work of breathing or signs of respiratory distress , lungs clear to auscultation. , normal percussion of chest and chest palpation normal . Cardiovascular: RRR, no murmur, no leg edema, non-displaced PMI, no S3 or S4 Abdomen: abdomen non-tender, no masses and no hepatomegaly . Skin: no skin lesions Neurologic: non-focal neurologic examination. Psychiatric judgment and insight is normal , oriented to person, place and time , normal mood and affect . Labs: Results for orders placed or performed in visit on 08/02/23 [facility] H[facility] Electrolytes Result Value Ref Range NON-[facility] H[facility] Sodium 138 136 - 145 mmol/L [facility] Potassium 4.1 3.5 - 5.1 mmol/L [facility] Chloride 102 98 - 107 mmol/L [facility] Carbon Dioxide 26.4 21.0 - 31.0 mmol/L [facility] Anion Gap 13.7 6.0 - 15.0 Medications: Current Outpatient Medications Medication Instructions allopurinol (Zyloprim) 100 mg tablet 1 tablet, oral, Daily ALPRAZolam (XANAX) 0.5 mg, oral, Nightly PRN aspirin 81 mg, oral, 2 times weekly atorvastatin (LIPITOR) 80 mg, oral, Daily Eliquis 5 mg, oral, 2 times daily escitalopram (Lexapro) 20 mg tablet 1 tablet, oral, Daily levothyroxine (Synthroid, Levoxyl) 150 mcg tablet 1 tablet, oral, Daily before breakfast methylPREDNISolone (MEDROL) 4 mg, oral, Take 4 tablets by mouth every other day metoprolol succinate XL (Toprol-XL) 50 mg 24 hr tablet 1 tablet, oral, Daily spironolacton-hydrochlorothiaz (Aldactazide) 25-25 mg tablet 1 tablet, oral, Daily before breakfast valACYclovir (Valtrex) 500 mg tablet 1 tablet, oral, Daily Assessment: This is a 63-year-old male with multiple medical issues including multivessel coronary artery disease, ischemic cardiomyopathy with mildly reduced LV systolic function and persistent atrial fibrillation. Given the patient's significant risk of bleeding, active lifestyle, fall risk, and need for lifelong antiplatelet therapy for his multivessel coronary disease, the patient is referred for consideration of left atrial appendage closure for stroke risk reduction. The CHADS-VASC score is 2 and HAS-BLED score is 3. The patient is at increased risk of both bleeding and stroke. As such the patient is a reasonable candidate for consideration of left atrial appendage occluder placement. Today we discussed the left atrial appendage closure procedure. The patient was given written educational handout materials and watched an educational video. All risks, benefits and alternative were discussed. The risks discussed included but were not limited to vascular complications, sedation related complications, risk of VT, CVA, device embolization, pericardial tamponade and . The patient verbalized understanding and decided to proceed. The patient requires CT for planning and to exclude MARIO thrombus. In addition, the patient will also need a CT scan 4 months after the procedure, to evaluate the device for position, thrombus and ashia-device leak.. Following device implant, strategy will be for dual antiplatelet therapy with aspirin and clopidogrel for 6 months then aspirin for life The patient will need CT scan 4 months after the procedure, to evaluate the device for position, thrombus and ashia-device leak Thank you, Dr. Mora, for this consultation and for allowing me to participate in the care of this patient. Bird Kowalski MD Expeller Worker, Interventional Cardiology Fellowship Program [facility] Office documented in this encounterNationwide Children's Hospital Work Phone: 1(657) 767-426009-09-2024 Telephone encounter Note* Telephone Encounter - Korin Leyva - 2023 9:29 AM EDT Called patient LVM regards to completing labs as directed below [facility]09-09-2024 Miscellaneous Notes* Telephone Encounter - Korin Leyva - 2023 9:29 AM EDT Called patient [...] Heladio Pineda MD * Telephone Encounter - Melany Pearson MA - 12/14/2023 9:35 AM EDT Images from the original note were not included. Most recent Rheumatology visit: 07/05/2023 (with Heladio Pineda) Last Bone Density on file: 06/28/2023 Rheumatology Care Team: None on file Recent Office Visits - This Specialty 07/05/2023 PMR (polymyalgia rheumatica) ([facility]) Rheumatology Heladio Pineda MD 03/05/2023 PMR (polymyalgia rheumatica) ([facility]) Rheumatology Heladio Pineda MD 01/05/2023 PMR (polymyalgia rheumatica) ([facility]) Rheumatology Heladio Pineda MD Upcoming Rheumatology Appointments - Next 365 Days Visit Type Date Time Department [facility] 03/17/2024 9:00 AM [facility] CBC: None on file [...] and advise. Maryann Ramos documented in this encounterAdena [facility]09-[facility] Telephone encounter Note * Telephone Encounter - [...] above. Please process accordingly. Heladio Pineda MD [facility]09-06-2024 Telephone encounter Note* Telephone Encounter - Melany Pearson MA - 12/14/2023 9:35 AM EDT Images from the original note were not included. Most recent Rheumatology visit: 07/05/2023 (with Heladio Pineda) Last Bone Density on file: 06/28/2023 Rheumatology Care Team: None on file Recent Office Visits - This Specialty 07/05/2023 PMR (polymyalgia rheumatica) ([facility]) Rheumatology Heladio Pineda MD 03/05/2023 PMR (polymyalgia rheumatica) ([facility]) Rheumatology Heladio Pineda MD 01/05/2023 PMR (polymyalgia rheumatica) ([facility]) Rheumatology Heladio Pineda MD Upcoming Rheumatology Appointments - Next 365 Days Visit Type Date Time Department [facility] 03/17/2024 9:00 AM [facility] CBC: None on file [...] 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 Maryann Ramos [facility]07-11-2024 History of Present illness Narrative* Daisy Mora MD - 10/18/2023 2:40 PM EDT Subjective Esme Steven is a 62 y.o. male Chief Complaint Follow-up HPI Patient is here for follow-up continue management for persistent atrial fibrillation, coronary disease, hypertension and hyperlipidemia. Following his last office visit he underwent cardioversion which was successful. Patient was in the hospital back in August for diverticulitis. EKG during that hospitalization showed sinus rhythm. Patient only complaint is significant easy bruisability his recent lab work including his CBC all noted and reviewed with him. And they are all reassuring Assessment 1. Persistent atrial fibrillation status post recent cardioversion. Remained in normal sinus rhythm 2. Coronary artery disease status post four-vessel bypass surgery with RIVAS to the LAD, SVG to diagonal, SVG to OM and SVG to RCA 3. Hypertension 4. Hyperlipidemia 5. Obesity 6. Sleep apnea on CPAP 7. Hypothyroidism on replacement therapy 8. history of mild ischemic cardiomyopathy EF in the 45% 9. Chronic anticoagulation due to persistent atrial fibrillation with complaint of easy bruisability I advised the patient to reduce his aspirin to twice weekly. Plan 1. I advised the patient to reduce his aspirin to twice weekly I advised him if he continues to have significant bruising consideration for Watchman device will be given he does have high CHADS2 vascular score and anticoagulation and/or Watchman device is indicated 2. Will consider antiarrhythmic and/or ablation if he has any recurrence in the future 3. Continue aggressive approach risk factor modification with exercise, losing weight 4. Encouraged him to be compliant with his CPAP 5. Will consider adding low-dose CALEB i Review of Systems All other systems reviewed and are negative. Vitals: 10/18/23 1432 BP: 132/84 BP Location: Left arm Patient Position: Sitting Pulse: 82 Weight: 109 kg (240 lb) Objective Physical Exam Constitutional: Appearance: Normal appearance. HENT: Nose: Nose normal. Neck: Vascular: No carotid bruit. Cardiovascular: Rate and Rhythm: Normal rate. Pulses: Normal pulses. Heart sounds: Normal heart [...] Content: Thought content normal. Judgment: Judgment normal. Allergies Prednisone Current Medications Current Outpatient Medications: allopurinol (Zyloprim) 100 mg tablet, Take 1 tablet (100 mg) by mouth once daily., Disp: , Rfl: ALPRAZolam (Xanax) 0.5 mg tablet, Take 1 tablet (0.5 mg) by mouth as needed at bedtime for sleep., Disp: , Rfl: aspirin 81 mg EC tablet, Take 1 tablet (81 mg) by mouth 2 times a week., Disp: , Rfl: atorvastatin (Lipitor) 80 mg [...] by mouth once daily., Disp: , Rfl: Assessment/Plan 1. Persistent atrial fibrillation (Multi) Follow Up In Cardiology Follow Up In Cardiology 2. Status post aorto-coronary artery bypass graft 3. Mixed hyperlipidemia 4. Cardiomyopathy, ischemic 5. Multi-vessel coronary artery stenosis 6. BMI 35.0-35.9,adult 7. Never smoked cigarettes Scribe Attestation By signing my name below, I, Ashly Whyte LPN attest that this documentation has been [...] exam, discussion and plan. documented in this encounterNationwide Children's Hospital Work Phone: 1(498) 230-453407-11-2024 Instructions* Patient Instructions* Pearl Bae LPN - 10/18/2023 2:40 PM EDT Please bring all medicines, vitamins, and herbal supplements with you when you come to the office. Prescriptions will not be filled unless you are compliant with your follow up appointments or have a follow up appointment scheduled as per instruction of your physician. Refills should be requested at the time of your visit. BMI was above normal measurement. Current weight: 109 kg (240 lb) Weight change since last visit (-) denotes wt loss -4 lbs Weight loss needed to achieve BMI 25: Lbs Weight loss needed to achieve BMI 30: Lbs Provided instructions on dietary changes Provided instructions on exercise documented in this encounterNationwide Children's Hospital Work Phone: 1(755) 180-479106-03-2024 Telephone encounter Note* Telephone Encounter - Lana Hartman MA - 09/10/2023 9:26 AM EDT Pt aware. Patient asked regarding Medrol. He says he is to take until completed. I stated yes. He wants to know if he should continue his other medications. I let him know Dr. Pineda didn't stated anything about any changes to his medication. Lana Hartman MA [facility]06-03-2024 Miscellaneous Notes* Telephone Encounter - Lana Hartman MA - 09/10/2023 9:26 AM EDT Pt aware. Patient asked regarding Medrol. He says he is to take until completed. I stated yes. He wants to know if he should continue his other medications. I let him know Dr. Pineda didn't stated anything about any changes to his medication. Lana Hartman MA * Telephone Encounter - Heladio Pineda MD - 09/09/2023 11:10 AM EDT Please Call patient if MyChart note not read to review results/released to My Chart if tests completed at [facility]: Normal labs and no inflammation.. [...] normal esr 9, crp<0.3; documented in this encounterAdena [facility]06-02-2024 Telephone encounter Note * Telephone Encounter - [...] chronic Afib. 03/05/23 normal esr 9, crp<0.3; [facility]05-29-2024 Telephone encounter Note* Telephone Encounter - Melany Pearson MA - 09/05/2023 2:40 PM EDT Spoke to pt aware of med sent. [facility]05-29-2024 Miscellaneous Notes* Telephone Encounter - Melany Samuels MA - 09/05/2023 2:40 PM EDT [...] Heladio Pineda MD * Telephone Encounter - Melany Pearson MA - 09/05/2023 10:21 AM EDT Spoke [...] medrol Thank you. * Telephone Encounter - Melany Pearson MA - 09/05/2023 7:58 AM EDT Images from the original note were not included. Most recent Rheumatology visit: 07/05/2023 (with Heladio Pineda) Rheumatology Care Team: None on file Recent Office Visits - This Specialty 07/05/2023 PMR (polymyalgia rheumatica) ([facility]) Rheumatology Heladio Pineda MD 03/05/2023 PMR (polymyalgia rheumatica) ([facility]) Rheumatology Heladio Pineda MD 01/05/2023 PMR (polymyalgia rheumatica) ([facility]) Rheumatology Heladio Pineda MD Upcoming Rheumatology Appointments - Next 365 Days Visit Type Date Time Department [facility] 03/17/2024 9:00 AM [facility] CBC: Latest Ref Rng [...] diagnoses: Vitamin D deficiency documented in this encounterAdena [facility]ike [facility] Center05-29-2024 Telephone encounter Note * Telephone Encounter - [...] above. Please process accordingly. Heladio Pineda MD [facility]05-29-2024 Telephone encounter Note* Telephone Encounter - Melany Pearson MA - 09/05/2023 10:21 AM EDT Spoke to pt he states he has been having muscle pain lately and will like to take the medrol dose pack for his pain. [facility]05-29-2024 Telephone encounter Note* Telephone Encounter - Heladio Pineda MD - 09/05/2023 9:12 AM EDT Please call patient Inquire if patient still taking medrol Is he have any pain symptoms, PMR symptoms? Per last note patient was off medrol Thank you. [facility]05-29-2024 Telephone encounter Note* Telephone Encounter - Melany Pearson MA - 09/05/2023 7:58 AM EDT Images from the original note were not included. Most recent Rheumatology visit: 07/05/2023 (with Heladio Pineda) Rheumatology Care Team: None on file Recent Office Visits - This Specialty 07/05/2023 PMR (polymyalgia rheumatica) ([facility]) Rheumatology Heladio Pineda MD 03/05/2023 PMR (polymyalgia rheumatica) ([facility]) Rheumatology Heladio Pineda MD 01/05/2023 PMR (polymyalgia rheumatica) ([facility]) Rheumatology Heladio Pineda MD Upcoming Rheumatology Appointments - Next 365 Days Visit Type Date Time Department [facility] 03/17/2024 9:00 AM [facility] CBC: Latest Ref Rng [...] Pineda MD Assoc. diagnoses: Vitamin D deficiency [facility]05-24-2024 Progress note Author Sally Alex [facility] August 31, 2023 3:45pm Note Date/Time August 31, 2023 10:54 am [facility] [address] [place] [address] Hospitalist Progress Note Signed with Addenda Patient: Esme Steven MR#: [id number] : 1960 Acct:[id number] Age/Sex: 62 / M Adm Date: 4 Loc: Room: [address] [place] [address] Type: ADM IN Attending Dr: Sally Alex MD Copies to: ~ ADDENDUM1 Patient was personally seen by me on the day of encounter, reviewed his history and performed gomez elements of exam and formulated the plan of care and confirmedthe resident/interns note below. Addendum Documented By: Sally Alex MD 08/31/231544 Addendum Signed By: <Electronically signed by Sally Alex MD> 08/31/23 1540 Date of Service: 08/31/2023 Subjective Subjective Narrative: [...] <Electronically signed by DO RADHA Zavala> 08/31/23 1053 [facility] Work Phone: 1(562) 461-458305-24-2024 History and physical note Author Elliott Talley [facility] August 30, 2023 11:34pm Note Date/Time August 30, 2023 11:04 pm [facility] [address] [place] [address] Hospitalist H&P Signed Patient: Esme Steven MR#: [id number] : 1960 Acct:[id number] Age/Sex: 62 / M Adm Date: 4 Loc: Room: 4E5971-9 Type: ADM IN Attending Dr: Elliott Talley MD Copies to: DO Elliott Hannah MD~ [facility] DATE OF EXAMINATION: 08/30/23 CHIEF COMPLAINT: Dizziness, [...] that which is noted above in HPI [facility] Medical History (Updated 08/30/23 @ [...] mg tablet,delayed release 81 mg PO DAILY VT prevention 01/29/17 [History Confirmed 08/30/23] atorvastatin 80 [...] % (Auto) 4.4 % (.) 08/30/23 18:20 [place] % (Auto) 2.3 % (.) 08/30/23 18:20 Eos % (Auto) 0.1 % (.) 08/30/23 18:20 Baso % (Auto) 0.8 % (.) 08/30/23 18:20 Nucleat RBC Rel Count 0.0 /100 WBC (0-0.5) 08/30/23 18:20 Neut # (Auto) 13.4 x10E3/uL (1.8-7.7) H 08/30/23 18:20 Lymph # (Auto) 0.6 x10E3/uL (1.00-4.8) L 08/30/23 18:20 [place] # (Auto) 0.3 x10E3/uL (0.0-0.8) 08/30/23 18:20 [...] pH 5.5 (5.0-9.0) 08/30/23 18:45 Ur Specific [place] 1.016 (1.001-1.030) 08/30/23 18:45 Urine Protein Negative [...] signed by Elliott Talley MD> 08/30/23 2334 [facility] Work Phone: 1(418) 704-409905-09-2024 History of Present illness Narrative* Ky Navarro [...] m (5' 10.5 ) documented in this encounterNationwide Children's Hospital Work Phone: 1(958) 709-241904-25-2024 Procedure noteDayton [facility]04-19-2024 History of Present illness Narrative* Daisy Mora MD - 07/27/2023 11:00 AM EDT [...] been seen in the past by the [facility] but elected to change because [...] Status post aorto-coronary artery bypass graft 7. detention current use of anticoagulant therapy Cardioversion External 8. BMI 35.0-35.9,adult Scribe Attestation By signing my name below, IZo LPN , Scribe attest that this documentation [...] exam, discussion and plan. documented in this encounterNationwide Children's Hospital Work Phone: [phone] 106-202404-19-2024 Instructions* Patient Instructions* Zo Castro LPN - [...] Provided instructions on exercise. documented in this encounterNationwide Children's Hospital Work Phone: 1(755) 706-585104-01-2024 Miscellaneous Notes* Telephone Encounter - Polly Magana [...] accordingly. Heladio Pineda MD documented in this encounterAdena [facility]03-25-2024 Miscellaneous Notes* Telephone Encounter - Korin Leyva - 07/02/2023 9:16 AM EDT Called and spoke with patient. Patient scheduled to see Dr. Pineda this [facility] Telephone Encounter - Heladio Pineda MD [...] normal esr 9, crp<0.3; documented in this encounterAdena [facility]ike [facility] Center03-07-2024 Miscellaneous Notes* Telephone Encounter - Kamille Rosario RN - 06/14/2023 9:28 AM EST Pt calling in; states he is to have procedure with JBP today but is experiencing fevers, vomiting, diarrhea. EP scheduler notified to call pt to cancel and reschedule. * Telephone Encounter - Georgia Harvey LPN - 06/14/2023 9:28 AM EST Called and spoke with pt, pt confirmed N/V/D and fever. Advised pt to call when symptoms resolve and will reschedule Pt stated he did miss Eliquis dose last night and no meds currently d/t vomiting. Will notify [facility]BP documented in this encounterMer[facility]03-[facility]-2024 Telephone encounter Note* Telephone Encounter - Kamille Rosario RN - 06/14/2023 9:28 AM EST Pt calling in; states he is to have procedure with JBP today but is experiencing fevers, vomiting, diarrhea. EP scheduler notified to call pt to cancel and reschedule. [facility]03-07-20[facility] Telephone encounter Note* Telephone Encounter - Georgia Harvey LPN - 06/14/2023 9:28 AM EST Called and spoke with pt, pt confirmed N/V/D and fever. Advised pt to call when symptoms resolve and will reschedule Pt stated he did miss Eliquis dose last night and no meds currently d/t vomiting. Will notify [facility]03-05-2024 Miscellaneous Notes* Telephone Encounter - Bharti Milian RN - 06/12/2023 5:10 PM EST Called patient with JBP's response to start Magnesium Oxide 400 twice a day by mouth. Patient agreeable and wants RX sent to [facility]. Rx sent to sign. Has some at home and will start tonight. tkm ----- Message from Chhaya Whatley MD sent at 06/12/2023 4:40 PM EST ----- Please have patient start taking magnesium oxide 400 mg twice a day. Thank you Dirk documented in this encounterMercy Memorial Hospital03-05-2024 Telephone encounter Note* Telephone Encounter - Bharti Milian RN - 06/12/2023 5:10 PM EST Called patient with JBP's response to start Magnesium Oxide 400 twice a day by mouth. Patient agreeable and wants RX sent to [facility]. Rx sent to sign. Has some at home and will start tonight. tkm ----- Message from Chhaya Whatley MD sent at 06/12/2023 4:40 PM EST ----- Please have patient start taking magnesium oxide 400 mg twice a day. Thank you Dirk [facility]03-04-2024 Miscellaneous Notes* Telephone Encounter - Ambar Figueroa BATTERY CHECKER - 06/11/2023 3:23 PM EST Images from the original note were not included. [facility] Physicians Cardiology: Cardioversion or DFT Testing Procedure: Cardioversion Physician: Dr. Dirk Whatley Date/Time of Procedure: 06/13 @ 1 pm Arrival Time: 12 pm Hospital: [facility] - Address: [address] [place] [address] Registration Location: [facility] at Entrance C, parking lot P3 PRE OP REQUIREMENTS Below MUST be completed prior to your procedure or it may result in delay or cancellation [] Pre op testing: NONE [x] Pre op labs: Draw pre op labs any time between and at any [facility] Lab, no paper orders are required, [...] 7am Other Instructions: [x] Must have a racecar driver as you will be unable to drive following the procedure IMPORTANT INFORMATION Notify the EP Surgery office of any illness, infection or COVID symptoms or a COVID positive resultimmediately at [phone] If you take a blood thinner, unless [...] schedule changes or emergencies at the hospital [facility] currently allows up to two visitors [...] you by the EP Surgery nurses. [facility] instructions can be incorrect and provide the wrong information about your procedure. If you have any questions or concerns about preparing for your procedure, please call the EP Surgery office at [phone] For additional questions and to schedule any follow up appointments please call the main [facility] Cardiology office at [phone] documented in this encounterMercy Memorial Hospital03-04-2024 Telephone encounter Note* Telephone Encounter - Ambar Figueroa LPN - 06/11/2023 3:23 PM EST Images from the original note were not included. [facility] Cardiology: Cardioversion or DFT Testing Procedure: Cardioversion Physician: Dr. Dirk Whatley Date/Time of Procedure: 06/13 @ 1 pm Arrival Time: 12 pm Hospital: [facility] - Address: [address] [place] [address] Registration Location: [facility] at Entrance C, parking lot P3 PRE OP REQUIREMENTS Below MUST be completed prior to your procedure or it may result in delay or cancellation [] Pre op testing: NONE [x] Pre op labs: Draw pre op labs any time between and at any [facility] Lab, no paper orders are required, [...] 7am Other Instructions: [x] Must have a racecar driver as you will be unable to drive following the procedure IMPORTANT INFORMATION Notify the EP Surgery office of any illness, infection or COVID symptoms or a COVID positive resultimmediately at [phone] If you take a blood thinner, unless [...] schedule changes or emergencies at the hospital [facility] currently allows up to two visitors [...] you by the EP Surgery nurses. [facility] [employer] instructions can be incorrect and provide the wrong information about your procedure. If you have any questions or concerns about preparing for your procedure, please call the EP Surgery office at [phone] For additional questions and to schedule any follow up appointments please call the main [facility] Cardiology office at [phone] [facility]02-26-20[facility] Miscellaneous Notes* Telephone Encounter - Ambar Figueroa LPN - 06/04/2023 3:05 PM EST ISAÍAS HEREDIA is requesting a CDVN for this pt, please review and advise thank you. * Telephone Encounter - Chhaya Whatley MD - 06/04/2023 3:05 PM EST Orders for cardioversion: 30 minutes, will need labs per protocol, schedule based on availability, no ELIGIO as long as he has been on Eliquis uninterrupted since he was started back in April, no device, NPO after midnight, mac per anesthesia, continue anticoagulation, do not hold any medication, pamela done at [facility] by me. Diagnosis persistent atrial fibrillation. History: Patient with chronic systolic heart failure due to ischemic cardiomyopathy with remote coronary bypass grafting, morbid obesity, sleep apnea, moderate LV dysfunction/heart failure underwent hip surgery has had complication with infection possibly drain in place was diagnosed with AFib in April. No reported prior history of AFib will has been per notes on Eliquis since the emergency room trip during half april. EP scheduling staff: Patient should have a follow-up to establish care with EP physician as a new EP patient, 30 minutes to discuss future steps in management of AFib. Thank you Dirk documented in this encounterMer[facility] Telephone encounter Note* Telephone Encounter - Ambar Figueroa LPN - 06/04/2023 3:05 PM EST ISAÍAS HEREDIA is requesting a CDVN for this pt, please review and advise thank you. [facility]02-26-2024 Telephone encounter Note* Telephone Encounter - Chhaya Whatley MD - 06/04/2023 3:05 PM EST Orders for cardioversion: 30 minutes, will need labs per protocol, schedule based on availability, no ELIGIO as long as he has been on Eliquis uninterrupted since he was started back in April, no device, NPO after midnight, mac per anesthesia, continue anticoagulation, do not hold any medication, pamela done at [facility] by me. Diagnosis persistent atrial fibrillation. History: Patient with chronic systolic heart failure due to ischemic cardiomyopathy with remote coronary bypass grafting, morbid obesity, sleep apnea, moderate LV dysfunction/heart failure underwent hip surgery has had complication with infection possibly drain in place was diagnosed with AFib in April. No reported prior history of AFib will has been per notes on Eliquis since the emergency room trip during half april. EP scheduling staff: Patient should have a follow-up to establish care with EP physician as a new EP patient, 30 minutes to discuss future steps in management of AFib. Thank you Dirk [facility] Work Phone: [phone] History of Present illness Narrative* Sarai Velasco MD - 06/04/2023 2:15 PM EST Esme Manny Yamilex Date of visit: 06/04/2023 Date of : 1960 Age: 62 y.o. 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 Hypertension Nonrheumatic mitral (valve) insufficiency Hyperlipidemia Other transient cerebral ischemic attacks and related syndromes Obstructive sleep apnea Dizziness Severe obesity (BMI 35.0-39.9) with comorbidity ([facility]) Coronary artery disease involving the [place] coronary artery of the [place] heart without angina pectoris Atrial fibrillation Allergies Allergen Reactions No Known Drug Allergies Other (See Comments) Current Outpatient Medications Medication Sig Dispense Refill allopurinoL (ZYLOPRIM) 100 mg tablet Take 1 tablet (100 mg total) by mouth in the morning. ALPRAZolam (XANAX) 0.25 mg tablet Take 1 tablet (0.25 mg total) by mouth nightly. aspirin 81 mg Take 1 tablet (81 mg total) by mouth in the morning. celecoxib (CeleBREX) 200 mg capsule Take 1 capsule (200 mg total) by mouth in the morning. ELIQUIS 5 mg tablet Take 1 tablet (5 mg total) by mouth in the morning and 1 tablet (5 mg total) before bedtime. escitalopram (LEXAPRO) 10 mg tablet Take 1 tablet (10 mg total) by mouth in the morning. levothyroxine (SYNTHROID, LEVOTHROID) 200 MCG tablet Take 1 tablet (200 mcg total) by mouth in the morning. metoprolol succinate XL (TOPROL-XL) 50 mg 24 hr tablet Take 1 tablet (50 mg total) by mouth daily. 90 tablet 0 spironolacton-hydroCHLOROthiaz (ALDACTAZIDE) 25-25 mg per tablet Take 1 tablet by mouth in the morning. 90 tablet 3 valACYclovir (VALTREX) 500 mg tablet No current facility-administered medications for this visit. Chief Complaint Patient presents with Follow-up [facility]M and [facility] 04/18/2023 Coronary Artery Disease Hypertension Atrial Fibrillation Hospital Follow-up History of Present Illness Patient is here for follow-up. He went through hip surgery and had a complication and has drain in place. He was noted to be in atrial fibrillation after he had COVID in April. Did not go through repeat surgery. It sounds like his hip is going to be treated conservatively at this point he has follow-up with orthopedics next week. He feels a little bit more short of breath and atrial fibrillation but no substantial symptoms. No chest pain or pressure. His rates have been in the 90s. He has a home monitoring device that has been consistently in atrial fibrillation since April. He was placed on Eliquis and tolerating this well. No orthopnea. No PND. Past Medical History: Diagnosis Date Atherosclerosis of autologous vein coronary artery bypass graft with angina pectoris ([facility]) Heart failure ([facility]) Hyperlipidemia Hypertension Meniere disease Myocardial infarction ([facility]) Nonrheumatic mitral (valve) insufficiency Obstructive sleep apnea Other transient cerebral ischemic attacks and related syndromes No data recorded No data recorded No data recorded Past Surgical History: Procedure Laterality Date APPENDECTOMY BACK SURGERY Coronary angiogram + graft/[place] N/A 02/03/2020 Performed by John Talavera MD at [facility] CARDIAC CATH LABS CORONARY ARTERY BYPASS GRAFT KNEE ARTHROSCOPY REPLACEMENT TOTAL KNEE Family History Problem Relation Age of Onset Stroke Mother Social History Socioeconomic History Marital status: Spouse name: Not on file Number of children: Not on file Years of education: Not on file Highest education level: Not on file Occupational History Not on file Tobacco Use Smoking status: Never Smokeless tobacco: Never Vaping Use Vaping Use: Never used Substance and Sexual Activity Alcohol use: Yes Drug use: No Sexual activity: Not on file Other Topics Concern Caffeine Use Yes Social History Narrative Not on file Social Determinants of Health Financial Resource Strain: Not on file Food Insecurity: No Food Insecurity (06/04/2023) Hunger Screening Food Insecurity - Worry: Never True Food Insecurity - Inability: Never True Transportation Needs: Not on file Physical Activity: Not on file Stress: Not on file Social Connections: Not on file Interpersonal Safety: Not on file Housing Instability: Not on file Review of Systems Review of Systems Constitutional: Negative. HENT: Negative. Eyes: Negative. Respiratory: Negative. Hematologic/Lymphatic: Bruises/bleeds easily. Skin: Negative. Musculoskeletal: Positive for muscle weakness. Gastrointestinal: Negative. Neurological: Negative. Psychiatric/Behavioral: Positive for depression. The patient is nervous/anxious. Allergic/Immunologic: Negative. CARDIOVASCULAR: Please review HPI. Physical Examination General appearance: Alert, oriented and cooperative. In no acute distress. Skin: Warm and dry to touch. Head: Normocephalic, without obvious abnormality, atraumatic. Ears, Nose, Mouth, Throat: Throat clear without erythema or exudate. Dentition intact. Eyes: Conjunctivae unremarkable, EOM intact. Neck: Neck supple, trachea midline. Respiratory: Clear to auscultation bilaterally, no use of accessory muscles. Cardiovascular: irr irr s1s2 Gastrointestinal: Soft, non-tender. Bowel sounds normal. Musculoskeletal: No peripheral edema. Neurologic: Oriented to time, person and place, affect appropriate. No focal/major motor defects noted. Psychiatric: Appropriate mood, memory and judgement. VITAL SIGNS: BP 114/80 (BP Site: Left Arm, BP Postition: Sitting) Pulse 94 Ht 177.8 cm (5' 10 ) Wt 108 kg (238 lb) SpO2 94% BMI 34.15 kg/m Orders Placed or Reconciled This Encounter Medications ELIQUIS 5 mg tablet Sig: Take 1 tablet (5 mg total) by mouth in the morning and 1 tablet (5 mg total) before bedtime. celecoxib (CeleBREX) 200 mg capsule Sig: Take 1 capsule (200 mg total) by mouth in the morning. Medications Discontinued During This Encounter Medication Reason irbesartan (AVAPRO) 150 mg tablet Therapy completed IMPRESSIONS/PLAN 1. Coronary artery disease involving the [place] coronary artery of the [place] heart without angina pectoris - POCT EKG - Basic Metabolic Panel; Future - CBC auto differential; Future 2. Persistent atrial fibrillation (CMS-HCC) - POCT EKG - Cardioversion external; Future - Basic Metabolic Panel; Future - CBC auto differential; Future CAD s/p CABG x4 in 2014 with RIVAS-LAD, SVG-D, OM SVG-RV marginal patent on 05/2021 cath. Prior PCI. Remote inferior myocardial infarction treated with thrombolytics. Essential Hypertension Mixed hyperlipidemia Normal LVEF, mild MR 04/26/21 History of TIA Obesity, BMI of 34; FER Reported single episode AF remotely post CABG. Now with persistent AF since 04/2023, had COVID around this time. Ischemic cardiomyopathy mild LV systolic dysfunction. Gated ejection fraction was 49%. I think his last echo was underestimated with regards to his EF. ?polymyalgia rheumatica on methotrexate History of vertigo, was on triamterene in part for this It sounds like he has not going through repeat surgery through his hip at this point. I think we should try to get him out of atrial fibrillation as this has been persistent since April. His rates are in the 90s. I would recommend a cardioversion to start with. He has been taking Eliquis consistently. I would like him to get all of the orthopedic issues with regards to his hip completely taking care of and ifthis is the case will proceed with cardioversion then see how long he remains in sinus rhythm afterwards. We will repeat an echocardiogram after he is back in sinus rhythm hopefully. I went over that he could revert to atrial fibrillation after the cardioversion immediately or he may have a protracted course of sinus rhythm given this was triggered at the time of COVID. He obviously has multiple risk factors for atrial fibrillation longstanding. We went over long-term options including consideration of sotalol, Tikosyn or ablation therapy down the road. Will bring him back after cardioversion. EKG today reveals atrial fibrillation with rates in the 90s TODAYS ORDERS Orders Placed This Encounter Procedures Basic Metabolic Panel CBC auto differential Cardioversion external POCT EKG FOLLOW UP No follow-ups on file. PCP: VITALIY BROWER DO Referring Physician: Vitaliy Brower DO [facility] [place] [address] documented in this encounterProctor HospitalOlive Software [id number] Instructions* Patient Instructions* Zhane Ceja RN - 06/04/2023 2:15 PM EST Pt needs scheduled for cardioversion at [facility] next week. He has been on eliquis without missing any doses. Thx slm documented in this encounterMercy [facility] Hospital02-23-2024 Miscellaneous Notes* Telephone Encounter - Melinda Gomes CMA - 06/01/2023 3:32 PM EST Called patient to remind them to bring their most current copy of their medication list with them to their appt. Patient verbalizes understanding. documented in this encounterMercy [facility]02-23-2024 Telephone encounter Note* Telephone Encounter - Melinda Gomes CMA - 06/01/2023 3:32 PM EST Called patient to remind them to bring their most current copy of their medication list with them to their appt. Patient verbalizes understanding. [facility]Share[facility] VIP Piano [id number] Evaluation note* Encounter Date Diagnosis Assessment Notes Treatment Notes Treatment Clinical Notes May, Acute pain of left knee (ICD-10 - M25.562) [facility] Other 02-12-2024 Evaluation note* Encounter Date Diagnosis [...] Pain of left calf (ICD-10 - M79.662) [facility] Other 02-07-2024 Evaluation note* Encounter Date Diagnosis Assessment Notes Treatment Notes Treatment Clinical Notes May, Aftercare following joint replacement surgery (ICD-10 - Z47.1) May, Presence of right artificial hip joint (ICD-10 - Z96.641) May, S/P total left hip arthroplasty (ICD-10 - Z96.642) May, Other [facility] at [facility] on 02/13/2023 At this point he is doing really well with the actual hip. We talked about being more aggressive and going to surgery to close this wound but the patient was recently diagnosed with atrial fibrillation. In my discussions with anesthesiology this would need to be worked up and evaluated by the air pollution compliance inspector before considering a surgery unless it was an emergency. At this point I do not feel it is actively infected so I do not feel it is a emergent surgery. He does see Garfield in [place] on 06/04/2023. Our plan at this time is to continue with the wound VAC with home health nursing who will come back on Sunday to put the wound VAC back on. I will then plan to see him in about 3 weeks which would be a day or 2 after he has seen his air pollution compliance inspector. At that point in time we will make a decision on the wound. If it is continuing to heal up and closed with the assistance of the wound VAC that is fantastic but if it still needs help then we will be aggressive at that time as long as his air pollution compliance inspector allows. Discussed post-op dental prophylaxis. Shared decision made to continue prophylactic antibiotics indefinitely. [facility] Other 01-29-2024 Evaluation note* Encounter Date Diagnosis [...] sometime in November to further discuss surgery. [facility] Other 01-24-2024 Evaluation note* Encounter Date Diagnosis [...] are maintaining regular scheduled appts with their air pollution compliance inspector. He understands that he must have surgery postponed for 4 wks for the new onset AFib. and postpone for 4-7 wks for COVID infection. Apr, Hypomagnesemia (ICD-10 - E83.42) Replace Magnesium w/ supplements Decrease Alcohol use. Recheck prior to any restortation of sinus rhythm [facility] Other 01-10-2024 NoteXR CHEST 1 VW Procedure: Chest x-ray performed Number of views:AP portable erect History:Palpitations, A. fib Comparison:07/18/2014 Findings: The heart and lungs show no acute findings, and the mediastinum and yue are grossly negative . There is a median sternotomy Impression: No acute change. Finalized by Sandra Barba DO on 04/18/2023 1:14 [facility] 04-18-2023 Miscellaneous Notes* Telephone Encounter - [...] left and told him to call his air pollution compliance inspector. Pt not dyspneic. Does have some dizzy symptoms. Pt not on any blood thinners. Instructed to go to ER for evaluation documented in this encounterOhioHealth Shelby HospitalBreakout Commerce01-10-2024 Telephone encounter Note* Telephone Encounter - Florence [...] left and told him to call his air pollution compliance inspector. Pt not dyspneic. Does have some dizzy symptoms. Pt not on any blood thinners. Instructed to go to ER for evaluation [facility]stownSeniorlink01-04-2024 Evaluation note* Encounter Date Diagnosis Assessment Notes [...] or dyspnea, instructed to go to ER [facility] Other 01-03-2024 Evaluation note* Encounter Date Diagnosis [...] will call us to get in sooner. [facility] Other 12-28-2023 Evaluation note* Encounter Date Diagnosis [...] and acute blood loss anemia are contributing [facility] Other 12-21-2023 Evaluation note* Encounter Date Diagnosis Assessment Notes Treatment Notes Treatment Clinical Notes Mar, Aftercare following joint replacement surgery (ICD-10 - Z47.1) Mar, Presence of right artificial hip joint (ICD-10 - Z96.641) Mar, S/P total left hip arthroplasty (ICD-10 - Z96.642) Mar, Other [facility] at [facility] on 02/13/2023 Overall he is doing [...] continue increasing activities as tolerated. Continue taking [id number] anti-inflammatorie s as needed for assistance with swelling and pain associated with the operative extremity. [facility] Other 12-07-2023 Evaluation note* Encounter Date Diagnosis [...] in the office today and providing supervision. [facility] Other 12-07-2023 Evaluation note* Encounter Date Diagnosis [...] answered to the best of my ability. [facility] Other 12-04-2023 Evaluation note* Encounter Date Diagnosis Assessment Notes Treatment Notes Treatment Clinical Notes Mar, Primary osteoarthritis 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 (ICD-10 - M16.11) [facility] Other 11-29-2023 Miscellaneous Notes* Telephone Encounter - [...] to My Chart if tests completed at [facility]: normal labs and no inflammation. [...] normal esr 9, crp<0.3; documented in this encounterAdena Pike [facility] Center11-29-2023 Evaluation note* Encounter Date Diagnosis [...] follow-up appointments based on that incision check. [facility] Other 11-27-2023 History of Present illness Narrative* [...] no Dactylitis: no H/o precedent/frequent infection(s): no Enthesopathy/Jazmyn's/heel/plantar tenderness: no Skin thickening, psoriasis, photosensitivity, purpura: no Nail changes: no Alpecia, patchy: no Eye inflammation: glasses SICCA: no Oral/nasal/genital ulcers: no GI problems-diarrhea/bleeding/IBD/Gluten intolerence/Dysphagia: occasionally gerd Raynaud's phenomenon/digital ulcers: no Organ inv-Serositis: no Lung disease/ILD: no Myopathy/proximal muscle weakness: no Abnormal Urine or urethritis: no Renal/liver disease: as above HAND ROUNDER/PNS/sz/cva/cancer disease: no HEME-Cytopenias/LAD/Clots: no Fevers: no Fatigue: [...] great toe/start alloupurinol ~2007, left index finger phue dumptrujane 1979, Afib temporarily,S/p b/l TKR ~2012 bone [...] Cans of Beer (12oz) per week 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 Mild narrowing of the [...] calcifications or tophi. No SI tenderness, no jazmyn's tenderness, no heel/plantar tenderness, lumbar flexion full, [...] touching your toes, sit-ups, using row machine intermediate pain recommendations per primary care provider/pain clinic [...] video & audio (virtual) or phone or [id number] patient care, completing clinical documentation, obtaining and/or [...] consult by letter/electronic shared medical records. cc Vitaliy Brower DO documented in this encounterAdena Pike Medical Center11-26-2023 Instructions* Patient Instructions* Heladio Pineda MD - [...] touching your toes, sit-ups, using row machine exterminator pain recommendations per primary care provider/pain clinic [...] Ab, Total Negative Negative documented in this encounterAdena Pike Medical Center11-25-2023 Miscellaneous Notes* Telephone Encounter - [...] - This Specialty 01/05/2023 PMR (polymyalgia rheumatica) ([facility]) Rheumatology Heladio Pineda MD 11/17/2013 Wrist arthritis [facility] Conley 10/29/2013 Pseudogout Rheumatology Tracy Conley Upcoming Rheumatology Appointments - Next 365 Days Visit Type Date Time Department [facility] 03/05/2023 2:00 PM [facility] CBC: CBC Latest Ref [...] diagnoses: Vitamin B12 deficiency documented in this encounterAdena Pike Medical Center11-22-2023 Evaluation note* Encounter Date Diagnosis [...] total left hip arthroplasty (ICD-10 - Z96.642) [facility] Other 10-27-2023 Evaluation note* Encounter Date Diagnosis [...] could proceed with surgery safely. The manager case management was vital for surgery timing and scheduling [...] plans. Prolonged services time spent: 34 minutes [facility] Other 10-25-2023 Evaluation note* Encounter Date Diagnosis Assessment Notes Treatment Notes Treatment Clinical Notes Jan, Primary osteoarthritis 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 (ICD-10 - M16.11) Jan, Other 1. Right PETER Home Medications - DVT prophylaxis: Aspirin - NSAID: Home prednisone - Disposition: Same-day discharge Joints Meeting Checklist - Pharmacy: [facility] to bed - Approach/Technique: anterior, Clayton bed - Implants: Avenir Complete/G7; - Anesthesia: general vs spinal - Blocks: Fascia iliaca - Preop Antibiotics: Ancef and Vanco - TXA: yes-systemic - Positioning/OR Bed: supine on Clayton bed - Intraop X-ray: yes - Otoole: [...] above surgery. OARRS report generated and reviewed. [facility] Other 10-18-2023 Evaluation note* Encounter Date Diagnosis [...] w/ plan to start MTX after surgery [facility] Other 10-05-2023 Miscellaneous Notes* Telephone Encounter - Melany Pearson MA - 01/11/2023 8:43 AM EDT Spoke to pt aware of results and recommendations. * Telephone Encounter - Heladio Pineda MD - 01/10/2023 5:14 PM EDT Please Call patient if MyChart note not read to review results/released to My Chart if tests completed at [facility]: Mildly Low vitamin D maybe associated with fatigue/joint/muscle pain. Start vitamin D 4000 International Units daily with food. Mildly Low vitamin b12- maybe associated with fatigue, may start over the counter vitamin [id number] daily by mouth or notify office if [...] hepatitis panel, quantiferon tb; documented in this encounterAdena Pike Medical Center09-29-2023 Instructions* Patient Instructions* Heladio Pineda [...] touching your toes, sit-ups, using row machine intermediate pain recommendations per primary care provider/pain clinic [...] your usual activities immediately. documented in this encounterAdena Pike Medical Center09-29-2023 History of Present illness Narrative* Heladio Pineda MD - 01/05/2023 11:31 AM EDT NEW CONSULT:RHEUMATOLOGY SERVICE SERVICE DATE: 01/05/2023 SERVICE TIME: 11:31 AM REASON FOR CONSULT: joint pain 2nd opinion REQUESTING PHYSICIAN: Dr.Benjamin Inocente DO PRIMARY CARE PHYSICIAN: Vitaliy Brower DO Patient's Name: Esme Steven [address] [place], [place] [id number] Accompanied by: self This consult was requested for my medical opinion regarding the rheumatologic evaluation of the patient's joint pain problems, and my final recommendations will be communicated to the requesting health care provider by way of the shared medical record for internal providers or letter via the [facility] [employer] for external providers. January 05, [...] no Dactylitis: no H/o precedent/frequent infection(s): no Enthesopathy/Jazmyn's/heel/plantar tenderness: no Skin thickening, psoriasis, photosensitivity, purpura: no Nail changes: no Alpecia, patchy: no Eye inflammation: glasses SICCA: no Oral/nasal/genital ulcers: no GI problems-diarrhea/bleeding/IBD/Gluten intolerence/Dysphagia: occasionally gerd Raynaud's phenomenon/digital ulcers: no Organ inv-Serositis: no Lung disease/ILD: no Myopathy/proximal muscle weakness: no Abnormal Urine or urethritis: no Renal/liver disease: as above HAND ROUNDER/PNS/sz/cva/cancer disease: no HEME-Cytopenias/LAD/Clots: no Fevers: no Fatigue: [...] ~2012 bone on bone, S/p L THR 2012 s/p CABG 4vessels (44y/o 10cardiac stents), [...] Cans of Beer (12oz) per week 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 Mild narrowing of the [...] calcifications or tophi. No SI tenderness, no jazmyn's tenderness, no heel/plantar tenderness, lumbar flexion full, [...] great toe/start alloupurinol ~2007, left index finger phue zora 1979, Afib temporarily,S/p b/l TKR ~2012 bone [...] touching your toes, sit-ups, using row machine intermediate pain recommendations per primary care provider/pain clinic [...] video & audio (virtual) or phone or [id number] patient care, completing clinical documentation, obtaining and/or [...] consult by letter/electronic shared medical records. cc Vitaliy Brower DO SIGNATURE: Heladio Pineda MD PATIENT NAME: Esme Steven DATE: January 05, 2023 documented in this [facility] Encounter Date Diagnosis [...] to hold Mr. Steven's ASA to his air pollution compliance inspector, but guidelines favor continuing without interruption, if [...] E06.3) Clinically euthyroid, continue treatment without interruption [facility] Other 09-19-2023 Evaluation note* Encounter Date Diagnosis [...] Dec, Multiple joint pain (ICD-10 - M25.50) [facility] Other 08-17-2023 Evaluation note* Encounter Date Diagnosis Assessment Notes Treatment Notes Treatment Clinical Notes Nov, Pseudogout (ICD-10 - M11.20) [facility] Other 08-16-2023 Evaluation note* Encounter Date Diagnosis Assessment Notes Treatment Notes Treatment Clinical Notes Nov, Primary osteoarthritis 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 (ICD-10 - M16.11) [facility] Other 08-15-2023 Evaluation note* Encounter Date Diagnosis [...] refer to Heladio Pineda for rheumatology consult [facility] Other 08-07-2023 Evaluation note* Encounter Date Diagnosis [...] (ICD-10 - Z12.5) Yearly MELBA and PSA [facility] Other 07-19-2023 Evaluation note* Encounter Date Diagnosis Assessment Notes Treatment Notes Treatment Clinical Notes Oct, Superficial ulcer of lower extremity (ICD-10 - L97.909) Cleanse w/ soap and water. Elevate as much as possible. No improvement, refer to wound clinic Oct, Cellulitis of left lower extremity (ICD-10 - L03.116) Keep clean, elevate and use Mupirocin bid. Begin antibiotics. [facility] Other 06-27-2023 Evaluation note* Encounter Date Diagnosis [...] palpitations or lightheadedness He completed evaluation w/ Inspector Water Pollution Control w/o changes Instructed to avoid use of Nitroglycerine w/ Sildenafil. Instructed to avoid use if develop CP, palpitations or lightheadedness [facility] Other 06-21-2023 Evaluation note* Encounter Date Diagnosis Assessment Notes Treatment Notes Treatment Clinical Notes Sep, FER (obstructive sleep apnea) (ICD-10 - G47.33) AHI 25, Psat 80% [facility] Other 06-21-2023 Evaluation note* Encounter Date Diagnosis Assessment Notes Treatment Notes Treatment Clinical Notes Sep, FER (obstructive sleep apnea) (ICD-10 - G47.33) AHI 35 [facility] Other 05-03-2023 Evaluation note* Encounter Date Diagnosis [...] recurrent major depressive disorder (ICD-10 - F33.0) [facility] Other 05-01-2023 Evaluation note* Encounter Date Diagnosis [...] note writ ten by Kevyn Corona MA, Road [employer]. Edited and approved by Dr. Jonathan Samano MD. [facility] Other 04-25-2023 Evaluation note* Encounter Date Diagnosis Assessment Notes Treatment Notes Treatment Clinical Notes Jul, Myalgia (ICD-10 - M79.10) [facility] Other 04-24-2023 Evaluation note* Encounter Date Diagnosis Assessment Notes Treatment Notes Treatment Clinical Notes Jul, Right shoulder pain (ICD-10 - M25.511) [facility] Other 04-21-2023 Evaluation note* Encounter Date Diagnosis [...] of yearly testing Sent order to complete [facility] Other 03-28-2023 Evaluation note* Encounter Date Diagnosis [...] left shoulder, initial encounter (ICD-10 - S40.012A) [facility] Other 02-27-2023 Evaluation note* Encounter Date Diagnosis [...] note writ ten by Jeff Nieto LPN, Road [employer]. Edited and approved by Dr. Jonathan Samano MD. [facility] Other 02-27-2023 Evaluation note* Encounter Date Diagnosis [...] the injection well with no adverse reaction. [facility] Other 02-20-2023 Evaluation note* Encounter Date Diagnosis [...] to continue exercise and AHA diet plan. [facility] Other 02-14-2023 Evaluation note* Encounter Date Diagnosis Assessment Notes Treatment Notes Treatment Clinical Notes May, Tongue ulceration (ICD-10 - K14.0) Magic Mouth Wash qid. Refer to ENT May, Hoarseness of voice (ICD-10 - R49.0) Refer to ENT May, Odynophagia (ICD-10 - R13.10) Refer to ENT [facility] Other 01-04-2023 Evaluation note* Encounter Date Diagnosis [...] note writ ten by Jeff Nieto LPN, [employer]. Edited and approved by Dr. Jonathan Samano MD. [facility] Other 11-30-2022 Evaluation note* Encounter Date Diagnosis [...] note writ ten by Jeff Nieto LPN, Road Boss. Edited and approved by Dr. Jonathan Samano MD. [facility] Other 11-09-2022 Evaluation note* Encounter Date Diagnosis [...] and tingle for hours after this injection. [facility] Other 11-07-2022 Evaluation note* Encounter Date Diagnosis [...] note writ ten by Jeff Nieto LPN, [employer]. Edited and approved by Dr. Jonathan Samano MD. [facility] Other 06-22-2022 Evaluation note* Encounter Date Diagnosis Assessment Notes Treatment Notes Treatment Clinical Notes Sep, Primary osteoarthritis 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 (ICD-10 - M16.11) Sep, Primary osteoarthritis of left hip (ICD-10 - M16.12) Sep, S/P total left hip arthroplasty (ICD-10 - Z96.642) Sep, Other [facility] on 07/04/2021 Doing well. Again discussed [...] to call with any questions or concerns. [facility] Other 06-06-2022 Evaluation note* Encounter Date Diagnosis Assessment Notes Treatment Notes Treatment Clinical Notes Sep, Right hand pain (ICD-10 - M79.641) Sep, Arthritis of right hand (ICD-10 - M19.041) Right long finger MCP joint injected with cortisone under sterile technique, patient tolerated well. Will discuss surgical options with Dr Nichole [facility] Other 05-11-2022 Evaluation note* Encounter Date Diagnosis Assessment Notes Treatment Notes Treatment Clinical Notes August, Primary osteoarthritis 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 (ICD-10 - M16.11) August, Primary osteoarthritis of left hip (ICD-10 - M16.12) August, S/P total left hip arthroplasty (ICD-10 - Z96.642) August, Other [facility] at [facility] on 07/04/2021 Doing well Patient may continue increasing activities as tolerated. Continue taking cgvl-ccp-wpzswss anti-inflammatori es as needed for assistance with swelling and pain associated with the operative extremity. Follow-up in 6 weeks for repeat examination and repeat x-rays. [facility] Other 04-13-2022 Evaluation note* Encounter Date Diagnosis Assessment Notes Treatment Notes Treatment Clinical Notes Jul, Primary osteoarthritis 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 (ICD-10 - M16.11) Jul, Primary osteoarthritis of left hip (ICD-10 - M16.12) Jul, Other [facility] at [facility] on 07/04/2021 Doing well. Steri-Strips applied. [...] off narcotic pain medication. They can take ooxj-mjz-kymczmt anti-inflammatories as needed for assistance with swelling [...] shoe for his standing weightbearing pelvis x-ray. [facility] Other 03-18-2022 Evaluation note* Encounter Date Diagnosis [...] could proceed with surgery safely. The manager case management was vital for surgery timing and scheduling [...] echo and a heart cath by his air pollution compliance inspector. He was then cleared from a cardiology standpoint. Any recommendations made by these care providers were taken into consideration for the patient's perioperative and postoperative treatment plans. Prolonged services time spent: 33 minutes [facility] Other 03-11-2022 Evaluation note* Encounter Date Diagnosis [...] postoperative period Joints Meeting Checklist - Pharmacy: [facility] to bed - Approach/Technique: anterior, Clayton bed - Implants: Avenir Complete/G7; - Anesthesia: general - Blocks: Fascia iliaca - Preop Antibiotics: Ancef - TXA: yes-systemic - Positioning/OR Bed: supine on Clayton bed - Intraop X-ray: yes - Otoole: [...] elected to proceed with the above surgery. [facility] Other 11-16-2021 Evaluation note* Encounter Date Diagnosis [...] note writ ten by Erica Valenzuela CMA, Road [employer]. Edited and approved by Dr. Jonathan Samano MD. [facility] Other 09-29-2021 Evaluation note* Encounter Date Diagnosis [...] note writ ten by Erica Valenzuela CMA, Road Boss. Edited and approved by Dr. Jonathan Samano MD. [facility] [employer] Other Evaluation note* Diagnosis Swelling of knee joint- Primary Effusion of lower leg joint documented in this [facility]No [facility] [employer] Other Evaluation noteNo assessment information available [facility] Work Phone: Evaluation note* Diagnosis [...] Bilateral hand swelling [facility]* Diagnosis PMR (polymyalgia rheumatica) (HCC)- Primary Polymyalgia rheumatica Elevated sed rate Elevated sedimentation rate Elevated C-reactive protein (CRP) Vitamin D deficiency Unspecified vitamin D deficiency Vitamin B12 deficiency Other B-complex deficiencies documented [facility]* Diagnosis PMR (polymyalgia rheumatica) (HCC)- Primary [...] Pain in limb [facility] Diagnosis PMR (polymyalgia rheumatica) ([facility])- Primary Polymyalgia rheumatica Elevated sed rate Elevated sedimentation rate Elevated C-reactive protein (CRP) documented in this [facility]* Diagnosis Steroid-induced osteoporosis Other osteoporosis documented in this [facility]* Diagnosis Onset Date Resolution Status Aftercare following hip joint replacement surgery acute History of total replacement 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 acute Aftercare following hip joint replacement surgery acute History of total replacement 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 acute ASHD (arteriosclerotic heart disease) acute GENESIS (generalized anxiety disorder) acute Hyperlipidemia acute Hypertension acute Hypothyroidism acute [facility] Work Phone: Evaluation note* Diagnosis PMR (polymyalgia rheumatica) ([facility])- Primary Polymyalgia rheumatica Elevated sed rate Elevated sedimentation rate Elevated C-reactive protein (CRP) Vitamin D deficiency Unspecified vitamin D deficiency documented in this [facility]* Diagnosis Persistent atrial fibrillation (Multi)- Primary Atrial fibrillation Multi-vessel coronary artery stenosis Cardiomyopathy, ischemic Other specified forms of chronic ischemic heart disease Mixed hyperlipidemia 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 (Multi) Atrial fibrillation Status post aorto-coronary artery bypass graft detention current use of anticoagulant therapy BMI 35.0-35.9,adult documented in this encounter [facility] Work Phone: Evaluation note* Diagnosis Onset Date Resolution Status Aftercare following hip joint replacement surgery acute History of total replacement 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 acute Aftercare following hip joint replacement surgery acute History of total replacement 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 acute ASHD (arteriosclerotic heart disease) acute Atrial fibrillation acute GENESIS (generalized anxiety disorder) acute Hypertension acute [facility] Work Phone: Evaluation note* Diagnosis 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 (Multi) Atrial fibrillation documented in this encounter [facility] Work Phone: Evaluation note* Diagnosis Onset [...] acute SIRS (systemic inflammatory response syndrome) acute [facility] Work Phone: Evaluation note* Diagnosis [...] acute SIRS (systemic inflammatory response syndrome) acute [facility] Work Phone: Evaluation note* Diagnosis PMR (polymyalgia rheumatica) ([facility])- Primary Polymyalgia rheumatica Elevated sed rate Elevated sedimentation rate Elevated C-reactive protein (CRP) [facility] Diagnosis Onset Date Resolution Status Aftercare following hip joint replacement surgery acute History of total replacement 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 acute ASHD (arteriosclerotic heart disease) acute GENESIS (generalized anxiety disorder) acute Acute diverticulitis acute Acute diverticulitis acute ASHD (arteriosclerotic heart disease) acute Inflammatory polyarthritis a cute Persistent atrial fibrillation acute Primary hypertension acute [facility] Work Phone: Evaluation note* Diagnosis 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 (tophi) Hyperuricemia Other abnormal blood chemistry [facility] Diagnosis Onset Date Resolution Status Acute diverticulitis acute Elevated lactic acid level r esolved Acute diverticulitis acute ASHD (arteriosclerotic heart disease) acute Inflammatory polyarthritis a cute Persistent atrial fibrillation acute Primary hypertension acute Biceps tendonitis on right a cute Rotator cuff syndrome of right shoulder acute Traumatic complete tear of left rotator cuff acute [facility] Work Phone: Evaluation note* Diagnosis Onset Date [...] diverticulitis of colon noneactive Wellness examination noneact [facility] Work Phone: Evaluation note* Diagnosis Elevated sed rate Elevated sedimentation rate Elevated C-reactive protein (CRP) PMR (polymyalgia rheumatica) ([facility]) Polymyalgia rheumatica [facility] Diagnosis Onset Date Resolution Status Biceps [...] of colon noneactive Wellness examination noneact [facility] Work Phone: Evaluation note* Diagnosis [...] of colon noneactive Wellness examination noneact [facility] Work Phone: Evaluation note* Diagnosis Atrial fibrillation, unspecified type (Multi) Preoperative examination Unspecified pre-operative examination Presence of Watchman left atrial appendage closure device Atrial fibrillation, unspecified type (Multi) Presence of Watchman left atrial appendage closure device documented in this encounter [facility] Work Phone: Evaluation note* Diagnosis Onset [...] noneact mallory Primary osteoarthritis, right hand acute [facility] Work Phone: Evaluation note* Diagnosis Persistent atrial fibrillation (Multi)- Primary Atrial fibrillation Status post aorto-coronary artery bypass graft Presence of Watchman left atrial appendage closure device Multi-vessel coronary artery stenosis Mixed hyperlipidemia Cardiomyopathy, ischemic Other specified forms of chronic ischemic heart disease Dilated aortic root (CMS-HCC) Thoracic aneurysm without mention of rupture Never smoked cigarettes BMI 35.0-35.9,adult documented in this encounter [facility] Work Phone: Evaluation note* Diagnosis Persistent atrial fibrillation (Multi)- Primary Atrial fibrillation Status post aorto-coronary artery bypass graft Mixed hyperlipidemia Cardiomyopathy, ischemic Other specified forms of chronic ischemic heart disease Multi-vessel coronary artery stenosis BMI 35.0-35.9,adult Never smoked cigarettes documented in this encounter [facility] Work Phone: Evaluation note* Diagnosis 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 (Multi)- Primary Atrial fibrillation Persistent atrial fibrillation (Multi) Atrial fibrillation documented in this encounter [facility] Work Phone: Evaluation note* Diagnosis Persistent atrial fibrillation (CMS-HCC)- Primary Atrial fibrillation Coronary artery disease involving the [place] coronary artery of [place] heart without angina pectoris [facility] Diagnosis Hypomagnesemia- Primary Disorders of magnesium metabolism [facility] Diagnosis Atrial fibrillation, unspecified type (Multi) documented in this encounter [facility] Work Phone: Evaluation note* Diagnosis PMR (polymyalgia rheumatica) (HCC)- Primary Polymyalgia rheumatica Elevated LFTs Other abnormal blood chemistry Anemia of chronic disease Anemia of other chronic disease Elevated sed rate Elevated sedimentation rate Elevated C-reactive protein (CRP) Vitamin D deficiency Unspecified vitamin D deficiency Hyperuricemia Other abnormal blood chemistry 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 Osteoarthrosis involving, or with mention of more than one site, but not specified as generalized, multiple sites 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 detention current use of 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 Encounter for long-term (current) use of steroids Chronic pain of both knees CHENCHO positive Other and unspecified nonspecific immunological findings Bilateral hand pain Pain in limb Bilateral hand swelling Bilateral arm weakness Other musculoskeletal symptoms referable to limbs Leg weakness, bilateral Other musculoskeletal symptoms referable to limbs Rotator cuff arthropathy of left shoulder Long-term use of high-risk medication [facility] Diagnosis 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 (tophi) Vitamin D deficiency Unspecified vitamin D deficiency Elevated LFTs Other abnormal blood chemistry Anemia of chronic disease Anemia of other chronic disease Hyperuricemia Other abnormal blood chemistry documented in this [facility]* Diagnosis Persistent atrial fibrillation (Multi)- Primary Atrial fibrillation Multi-vessel coronary artery stenosis Status post aorto-coronary artery bypass graft Mixed hyperlipidemia Dilated aortic root Thoracic aneurysm without mention of rupture Cardiomyopathy, ischemic Other specified forms of chronic ischemic heart disease Presence of Watchman left atrial appendage closure device BMI 32.0-32.9,adult Never smoked cigarettes documented in this encounter [facility] Work Phone: Evaluation note* Diagnosis 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 (tophi) 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 Chronic pain of both knees Vitamin D deficiency Unspecified vitamin D deficiency Secondary osteoarthritis of multiple sites Osteoarthrosis involving, or with mention of more than one site, but not specified as generalized, multiple sites PMR (polymyalgia rheumatica) (HCC) Polymyalgia rheumatica CHENCHO positive Other and unspecified nonspecific immunological findings Bilateral hand pain Pain in limb Long-term use of high-risk medication Chronic hip pain, bilateral documented [facility] Diagnosis Pseudogout involving multiple joints- Primary Other disorder of calcium metabolism 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 Osteoarthrosis involving, or with mention of more than one site, but not specified as generalized, multiple sites PMR (polymyalgia rheumatica) (HCC) Polymyalgia rheumatica CHENCHO positive Other and unspecified nonspecific immunological findings Bilateral hand pain Pain in limb Long-term use of high-risk medication Chronic hip pain, bilateral Rotator cuff arthropathy of left shoulder manager terminal current use of 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 Encounter for long-term (current) use of steroids Bilateral hand swelling Chronic pain of both knees Leg weakness, bilateral Other musculoskeletal symptoms referable to limbs Chronic bilateral low back pain without sciatica Bilateral knee swelling Effusion of lower leg joint documented in this encounter [facility] Author Elliott Talley [facility] August 30, 2023 11:34pm Note Date/Time August 30, 2023 11:04 pm [facility] [address] [place] [address] Hospitalist H&P Signed Patient: Esme Steven MR#: [id number] : 1960 Acct:[id number] Age/Sex: 62 / M Adm Date: 4 Loc: Room: [address] [place] [address] Type: ADM IN Attending Dr: Elliott Talley [...] that which is noted above in HPI [facility] Medical History (Updated 08/30/23 @ [...] mg tablet,delayed release 81 mg PO DAILY VT prevention 01/29/17 [History Confirmed 08/30/23] atorvastatin 80 [...] % (Auto) 4.4 % (.) 08/30/23 18:20 [place] % (Auto) 2.3 % (.) 08/30/23 18:20 Eos % (Auto) 0.1 % (.) 08/30/23 18:20 Baso % (Auto) 0.8 % (.) 08/30/23 18:20 Nucleat RBC Rel Count 0.0 /100 WBC (0-0.5) 08/30/23 18:20 Neut # (Auto) 13.4 x10E3/uL (1.8-7.7) H 08/30/23 18:20 Lymph # (Auto) 0.6 x10E3/uL (1.00-4.8) L 08/30/23 18:20 [place] # (Auto) 0.3 x10E3/uL (0.0-0.8) 08/30/23 18:20 [...] pH 5.5 (5.0-9.0) 08/30/23 18:45 Ur Specific [place] 1.016 (1.001-1.030) 08/30/23 18:45 Urine Protein Negative [...] signed by Elliott Talley MD> 08/30/23 2334 [facility] Work Phone: History and physical note Author Mehrdad Mcmanus [facility] December 31, 2023 12:47pm Note Date/Time December 31, 2023 12:47pm [facility] [address] [place] [address] Gastroenterology H&P Signed Patient: Esme Steven MR#: [id number] : 1960 Acct:[id number] Age/Sex: 63 / M Adm Date: 4 Loc: Room: Type: [facility] Attending Dr: Mehrdad Mcmanus MD Copies to: Vitaliy Brower,DO Mehrdad Mcmanus MD~ Date of Service: [...] M.D. Documented By: Mehrdad Mcmanus MD 12/31/23 1246 Signed By: <Electronically signed by Mehrdad Mcmanus MD> 12/31/23 1247 [facility] Work Phone: History general Narrative - Reported* Type Description [...] Harmony willams 2012 Hospitalization History see above [facility] Other History general Narrative - Reported* Type Description Date Medical History CAD with 10 stints Medical History L/S spine artificial discs times two Medical History TKR bilateral Medical History hypothyroid Medical History hypertension Surgical History lumbar TDR remote Surgical History TKR bilateral remote Surgical History stint placement for CAD times 1 0 remote Surgical History quad bipass 07/17/14 Surgical History double knee replacement 2013 Hospitalization History see above [facility] Other history general Narrative - Reported* Type [...] Harmony willams 2012 Hospitalization History see above [facility] Other [email or web address] general N[facility]ative - [facility] Other history general Narrative - Reported* Type [...] History LTHA 07/04/21 Hospitalization History see above [facility] Other history general Narrative - Reported* Type [...] History LTHA 07/04/21 Hospitalization History see above [facility] Other Hisscqh general Narrative - Reported* Type Description Date [...] History LTHA 07/04/21 Hospitalization History see above [facility] Other [employer] general Narrative - Reported* Type Description Date [...] Right PETER 02/2023 Hospitalization History see above [facility] Other History general Narrative - Reported* Type [...] w/ PTCA/stent 2013 Hospitalization History see above [facility] Other Hospital Discharge instructions Additional Instructions Joint Replacement Discharge Instructions Your safety during your recovery process is important to us. Please seek immediate emergency care if you have sudden chest pain or shortness of breath. Additionally, please call our office at [phone] should any of the following occur: wound [...] until you see me in the office. [place] This is a no contact dressing that [...] to walk without your walker and your direct care supervisor until the therapist checks you the following [...] and/or laxatives as directed. You may take twiz-flc-etpylkz Benadryl if itching occurs without a rash or hives. Icing and elevation will help relieve pain as well, do not underestimate the power of ice and elevation. We do recommend that you stop taking narcotic pain medications by 4-6 weeks after surgery and if necessary, continue to use anti-inflammatory medications such as Mobic (meloxicam), Celebrex (celecoxib), or an pawb-lvx-tupgpio medication (Aleve, Motrin, Ibuprofen, etc). Driving an [...] feel free to call our office at [phone]. You are a priority of ours and we will not be upset with you if you call. We would much rather you call to confirm aspects of your recovery process as opposed to possibly hindering your recovery with inappropriate care. We are committed to providing you with the best care possible. Sarai Mendez II, MD Updated 06/23/2022[facility] Work Phone: Hospital Discharge instructions Additional Instructions Stop Eliquis on 09/16/2024[facility] Work Phone: InstructionsNot on filedocumented in this encounter [facility] this [facility] on filedocumented in this encounter [facility]ructionsNot on filedocumented in this encounter [facility]InstructionsNot on filedocumented in this encounter [facility]Progress note Author Sally Alex [facility] August 31, 2023 3:45pm Note Date/Time August 31, 2023 10:54 am [facility] [address] [place] [address] Hospitalist Progress Note Signed with Elida Patient: Esme Steven MR#: [id number] : 1960 Acct:[id number] Age/Sex: 62 / M Adm Date: 4 Loc: 3T Room: [address] [place] [address] Type: ADM IN Attending Dr: Sally Alex MD Copies to: ~ ADDENDUM1 Patient was personally seen by me on the day of encounter, reviewed his history and performed gomez elements of exam and formulated the plan of care and confirmedthe resident/interns note below. Addendum Documented By: Sally Alex MD 08/31/23 1545 Addendum Signed By: <Electronically signed by Sally [...] Syringe IV-PUSH 08/30/24 05:59 Not Given QSHIFT [facility] A&P - Hospitalist Assessment/Plan (1) Acute diverticulitis: [...] signed by DO RADHA Zavala> 08/31/23 1054 [facility] Work Phone: Reason for referral (narrative)* Reason Referral for suspect ed PMR Known OA spine, hips, knees, hands Diagnosis 1 PMR (polymyalgia rhe umatica) (M35.3) Referral Organization [facility] Referring Provider First Name Vitaliy Referring Provider Last Name Inocente Referring Provider Specialty Internal Me dicine Referred Organization [facility] Referred Provider Sarai Georges Referred Address [address] [facility] Shamir [place] Referral Priority Routine [employer] Other Reason for referral (narrative)* Diagnostic Procedure Only (Routine) - Authorized Specialty Diagnoses / Procedures Referred By Contac t Referred To Contact XR IMAGING Diagnoses Steroid-induced osteoporosis Procedures DXA-FOREARM SKELETON DXA BONE DENSITY STUDY 1/>SITES Heladio Alvarado MD [address] [place] [address] [place] [address] Referral ID Status Reason Start Date Expiration Date Visits Requested Visits Authorized [id number] Authorized Auto-Generat ed Referral 01/05/2023 02/04/2024 1 1 [facility] for referral (narrative)* Diagnostic Procedure Only (Routine) - Closed Specialty Diagnoses / Procedures Referred By Contac t Referred To Contact XR IMAGING Diagnoses Steroid-induced osteoporosis Procedures DXA-FOREARM SKELETON DXA BONE DENSITY STUDY 1/>SITES Heladio Alvarado MD [address] [place] [address] [place] [address] Referral ID Status Reason Start Date Expiration Date V isits Requested Visits Authorized [id number] Closed Auto-Generate d Referral 01/05/2023 02/04/2024 1 1 [facility] for referral (narrative)* Consultation (Routine) - Authorized Specialty Diagnoses / Procedures Referred By Contac t Referred To Contact Cardiology Diagnoses 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 (Multi) Procedures Follow Up In Cardiology Daisy Mora MD [address] [facility] [address], [address] [address] Daisy Mora MD [address] [facility] [address], [address] [address] Referral ID Status Reason Start Date Expiration Date V isits Requested Visits Authorized [id number] Authorized 10/18/2023 10/17/2024 1 1 [facility] Work Phone: [email or web address] for visit Narrative* Diagnostic Procedure Only (Routine) - Closed Specialty Diagnoses / Procedures [facility] To Contact XR IMAGING Diagnoses Steroid-induced osteoporosis Procedures DXA-FOREARM SKELETON DXA BONE DENSITY STUDY /SITES APPENDICLR Heladio David MD [address] [place] [address] [place] [address] Referral ID Status Reason Start Date Expiration Date V isits Requested Visits Authorized [id number] Closed Auto-Generate d Referral 01/05/2023 02/04/2024 1 1 [facility] for visit Narrative* Auth/Cert Specialty Diagnoses / Procedures Referred By Contac t Referred To Contact Diagnoses Atrial fibrillation, unspecified type (Multi) Atrial fibrillation, unspecified type (Multi) [I48.91] Procedures CT EXCLUSION LEFT ATRIAL APPENDAGE OPEN ANY METHOD CT PERQ CLSR TCAT L ATR APNDGE W/ENDOCARDIAL IMPLNT CT PERQ CLSR TCAT L ATR APNDGE W/ENDOCARDIAL IMPLNT LAAO (Left Atrial Appendage O[place]clusion[place] [address] [place] [address] Phone: tel: fax: [facility] [address] [place] [address] [place] [address] Phone: tel: fax: Referral ID Status Reason Start Date Expiration Date Visits Re quested Visits Authorized [id number] 1 1 [facility] Work Phone: Reason for visit Narrative* Imaging (Routine) - Authorized Specialty Diagnoses / Procedures Referred By Contac t Referred To Contact Radiology Diagnoses Atrial fibrillation, unspecified type (Multi) Procedures [place] [address] [place] [address] Phone: tel: fax: Referral ID Status Reason Start Date Expiration Date Visits Requested Visits Authorized [id number] Authorized Perform Procedure 12/27/2023 12/26/2024 1 1 [facility] Work Phone: Chief Complaint and Reason for Visit Chief [...] Complaint Hip pain Hip pain Chief Complaint Op/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 Administrator Left Shoulder Pain Mri Done At [facility] z47.1 z96.641 Flu Shot/ Bp Check Discussion About Inspector Water Pollution Control Recheck Left Shoulder Cannot Have Surger Chief Complaint Op/Sales Administrator Left Shoulder Pain Mri Done At [facility] z47.1 z96.641 Flu Shot/ Bp Check Discussion About Inspector Water Pollution Control Recheck Left Shoulder Cannot Have Surger Z47.1/Z96.641 T84.84XA Z96.652 M79.662 Chief Complaint Flu Shot/ Bp Check Discussion About Inspector Water Pollution Control Recheck Left Shoulder Cannot Have Surger Z47.1/Z96.641 [...] SP RT LONG FINGER PAIN WANTS INJ Arsh ellison 2023 1:35pm OP SP BILAT SHOULDER PAIN February 18, 2024 9:37am Reason for Visit Admit Date Primary osteoarthritis, right hand Novem 2023 1:35pm Biceps tendonitis on right February 9:37am Rotator cuff syndrome of right shoulder February 18, 2024 9:37am Traumatic complete tear of left rotator cuff February 18, 2024 9:37am Chief Complaint Admit Date OP SP RT LONG FINGER PAIN WANTS INJ Nove mber 2023 1:35pm OP SP BILAT SHOULDER PAIN February 18, 2024 9:37am bronchiits March 17, 2024 3 :02pm Amb Documentation April 22, 2024 9 :29am pain when coughing, bruised ribs May 02, 2024 2:00pm Reason for Visit Admit Date Primary osteoarthritis, right hand Novem 2023 1:35pm Biceps tendonitis on right February 9:37am Rotator cuff syndrome of right shoulder February 18, 2024 9:37am Traumatic complete tear of left rotator cuff February 18, 2024 9:37am Acute bronchitis due to other specified organisms March 17, 2024 3:02pm ASHD (arteriosclerotic heart disease) 2023 3:02pm Cough March 17, 2024 3 :02pm Acute bronchitis due to other specified organisms May 02, 2024 2:00pm Chief Complaint Admit Date bronchiits March 17, 2024 3 :02pm Amb Documentation April 22, 2024 9 :29am pain when coughing, bruised ribs May 02, 2024 2:00pm I48.91 May 29, 2024 9:53am Reason for Visit Admit Date Acute bronchitis due to other specified organisms March 17, 2024 3:02pm ASHD (arteriosclerotic heart disease) 2023 3:02pm Cough March 17, 2024 3 :02pm Acute bronchitis due to other specified organisms May 02, 2024 2:00pm Chest wall contusion May 02, 2024 2:00pm Chief Complaint Admit Date Amb Documentation April 22, 2024 9 :29am pain when coughing, bruised ribs May 02, 2024 2:00pm I48.91 May 29, 2024 9:53am Discuss BW July 01, 2024 1:1 1pm Reason for Visit Admit Date Acute bronchitis due to other specified organisms May 02, 2024 2:00pm Chest wall contusion May 02, 2024 2:00pm Chief Complaint Admit Date I48.91 May 29, 2024 9:53am Discuss BW July 01, 2024 1:1 1pm diverticulitis July 30, 2024 9:4 4am Reason for Visit Admit Date ASHD (arteriosclerotic heart disease) [facility] 2024 1:11pm GENESIS (generalized anxiety disorder) July 01, 2024 1:11pm Gastroesophageal reflux dise ase with esophagitis without hemorrhage July 01, 2024 1:11pm Hypothyroid July 01, 2024 1:1 1pm Macrocytosis without anemia July 01, 2024 1:11pm Chief Complaint Admit Date I48.91 May 29, 2024 9:53am Discuss BW July 01, 2024 1:1 1pm diverticulitis July 30, 2024 9:4 4am lt hip pain August 01, 2024 10: 46am Reason for Visit Admit Date ASHD (arteriosclerotic heart disease) [facility] 2024 1:11pm GENESIS (generalized anxiety disorder) July 01, 2024 1:11pm Gastroesophageal reflux dise ase with esophagitis without hemorrhage July 01, 2024 1:11pm Hypothyroid July 01, 2024 1:1 1pm Macrocytosis without anemia July 01, 2024 1:11pm Purpura of skin due to vascular fragilit y July 30, 2024 9:44am Abdominal pain July 30, 2024 9:4 4am Diverticulitis large intestine July 9:44am Chief Complaint Admit Date I48.91 May 29, 2024 9:53am Discuss BW July 01, 2024 1:1 1pm diverticulitis July 30, 2024 9:4 4am lt hip pain August 01, 2024 10: 46am M79.642 - Pain in left hand August 04, 2024 8:37am OP LT HAND INJURY August 04, 2024 9:0 3am Reason for Visit Admit Date ASHD (arteriosclerotic heart disease) [facility] 2024 1:11pm GENESIS (generalized anxiety disorder) July 01, 2024 1:11pm Gastroesophageal reflux dise ase with esophagitis without hemorrhage July 01, 2024 1:11pm Hypothyroid July 01, 2024 1:1 1pm Macrocytosis without anemia July 01, 2024 1:11pm Purpura of skin due to vascular fragilit y July 30, 2024 9:44am Abdominal pain July 30, 2024 9:4 4am Diverticulitis large intestine July 9:44am Contusion of left hand August 04, 2024 9:03am Left hand pain August 04, 2024 9:0 3am Primary osteoarthritis, right hand August 04, 2024 9:03am Chief Complaint Admit Date I48.91 May 29, 2024 9:53am Discuss BW July 01, 2024 1:1 1pm diverticulitis July 30, 2024 9:4 4am lt hip pain August 01, 2024 10: 46am M79.642 - Pain in left hand August 04, 2024 8:37am OP LT HAND INJURY August 04, 2024 9:0 3am OP/SP LTHA PAIN AFTER FALL NX July 11:36am Z96.642 - Presence of left artificial hi p joint August 06, 2024 11:39am Reason for Visit Admit Date ASHD (arteriosclerotic heart disease) [facility] 2024 1:11pm GENESIS (generalized anxiety disorder) July 01, 2024 1:11pm Gastroesophageal reflux dise ase with esophagitis without hemorrhage July 01, 2024 1:11pm Hypothyroid July 01, 2024 1:1 1pm Macrocytosis without anemia July 01, 2024 1:11pm Purpura of skin due to vascular fragilit y July 30, 2024 9:44am Abdominal pain July 30, 2024 9:4 4am Diverticulitis large intestine July 9:44am Contusion of left hand August 04, 2024 9:03am Left hand pain August 04, 2024 9:0 3am Primary osteoarthritis, right hand August 04, 2024 9:03am Contusion of left thigh August 06, 2024 11:36am History of revision of total replacement of left hip joint August 06, 2024 11:36am Chief Complaint Admit Date I48.91 May 29, 2024 9:53am Discuss BW July 01, 2024 1:1 1pm diverticulitis July 30, 2024 9:4 4am lt hip pain August 01, 2024 10: 46am M79.642 - Pain in left hand August 04, 2024 8:37am OP LT HAND INJURY August 04, 2024 9:0 3am OP/SP LTHA PAIN AFTER FALL NX July 11:36am Z96.642 - Presence of left artificial hi p joint August 06, 2024 11:39am Chest Pain August 11, 2024 12:48p m Reason for Visit Admit Date ASHD (arteriosclerotic heart disease) [facility] 2024 1:11pm GENESIS (generalized anxiety disorder) July 01, 2024 1:11pm Gastroesophageal reflux dise ase with esophagitis without hemorrhage July 01, 2024 1:11pm Hypothyroid July 01, 2024 1:1 1pm Macrocytosis without anemia July 01, 2024 1:11pm Purpura of skin due to vascular fragilit y July 30, 2024 9:44am Abdominal pain July 30, 2024 9:4 4am Diverticulitis large intestine July 9:44am Contusion of left hand August 04, 2024 9:03am Left hand pain August 04, 2024 9:0 3am Primary osteoarthritis, right hand August 04, 2024 9:03am Contusion of left thigh August 06, 2024 11:36am History of revision of total replacement of left hip joint August 06, 2024 11:36am Atrial fibrillation August 11, 2024 12:48p m Chest pain August 11, 2024 12:48p m Unstable angina August 11, 2024 12:48p m Chief Complaint Admit Date I48.91 May 29, 2024 9:53am Discuss BW July 01, 2024 1:1 1pm diverticulitis July 30, 2024 9:4 4am lt hip pain August 01, 2024 10: 46am M79.642 - Pain in left hand August 04, 2024 8:37am OP LT HAND INJURY August 04, 2024 9:0 3am OP/SP LTHA PAIN AFTER FALL NX July 11:36am Z96.642 - Presence of left artificial hi p joint August 06, 2024 11:39am Chest Pain August 11, 2024 12:48p m Amb Documentation August 12, 2024 12:27p m Chest Pain August 12, 2024 3:23pm [facility]: Chest Pain-HIGH RISK August 19 4:09pm Reason for Visit Admit Date ASHD (arteriosclerotic heart disease) [facility] 2024 1:11pm GENESIS (generalized anxiety disorder) July 01, 2024 1:11pm Gastroesophageal reflux dise ase with esophagitis without hemorrhage July 01, 2024 1:11pm Hypothyroid July 01, 2024 1:1 1pm Macrocytosis without anemia July 01, 2024 1:11pm Purpura of skin due to vascular fragilit y July 30, 2024 9:44am Abdominal pain July 30, 2024 9:4 4am Diverticulitis large intestine July 9:44am Contusion of left hand August 04, 2024 9:03am Left hand pain August 04, 2024 9:0 3am Primary osteoarthritis, right hand August 04, 2024 9:03am Contusion of left thigh August 06, 2024 11:36am History of revision of total replacement of left hip joint August 06, 2024 11:36am ASHD (arteriosclerotic heart disease) Ak y 2024 12:48pm Atrial fibrillation August 11, 2024 12:48p m Hyperlipidemia August 11, 2024 12:48p m 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 with RVR August 11, 2024 12:48pm Presence of Watchman left atrial appenda ge closure device August 11, 2024 12:48pm Primary hypertension August 11, 2024 12:48 pm Chest pain August 11, 2024 12:48p m Unstable angina August 11, 2024 12:48p m ASHD (arteriosclerotic heart disease) Ma y 2024 4:09pm Atrial fibrillation August 19, 2024 4:09p m GENESIS (generalized anxiety disorder) August 072024 4:09pm Hypercholesterolemia August 19, 2024 4:09 pm Hypothyroid August 19, 2024 4:09p m FER (obstructive sleep apnea) August 19, 2024 4:09pm Primary hypertension August 19, 2024 4:09 pm Chief Complaint Admit Date Discuss BW July 01, 2024 1:1 1pm diverticulitis July 30, 2024 9:4 4am lt hip pain August 01, 2024 10: 46am M79.642 - Pain in left hand August 04, 2024 8:37am OP LT HAND INJURY August 04, 2024 9:0 3am OP/SP LTHA PAIN AFTER FALL NX July 11:36am Z96.642 - Presence of left artificial hi p joint August 06, 2024 11:39am Chest Pain August 11, 2024 12:48p m Amb Documentation August 12, 2024 12:27p m Chest Pain August 12, 2024 3:23pm [facility]: Chest Pain-HIGH RISK August 19 4:09pm afib September 09, 2024 9:45a m Family History Relationship Condition Age at Onset [...] Cerebral aneurysm Unknown brother Exposure to Agent [place] Unknown Relationship Condition Age at Onset Recorded Date/T daren Not Specified Calculus of kidney Unknown Presence of cardiac pacemaker Unknown Cerebrovascular accident (CVA) Unknown father Coronary artery disease Unknown brother Cerebral aneurysm Unknown brother Exposure to Agent [place] Unknown brother Unknown father Unknown Not Specified Unknown History of stroke Unknown Heart disease Unknown Relationship Condition Age at Onset Recorded Date/T daren Not Specified Calculus of kidney Unknown Presence of cardiac pacemaker Unknown Cerebrovascular accident (CVA) Unknown History of stroke Unknown Unknown Heart disease Unknown father Coronary artery disease Unknown brother Cerebral aneurysm Unknown Exposure to Agent [place] Unknown Relationship Condition Age at Onset Recorded Date/T daren mother Calculus of kidney Unknown Presence of cardiac pacemaker Unknown Cerebrovascular accident (CVA) Unknown History of stroke Unknown Unknown Heart disease Unknown father Coronary artery disease Unknown brother Cerebral aneurysm Unknown Exposure to Agent [place] Unknown Relationship Condition Age at Onset Recorded Date/T daren mother Heart disease Unknown Calculus of kidney Unknown Unknown Presence of cardiac pacemaker Unknown Cerebrovascular accident (CVA) Unknown father History of coronary artery stent placement Unknown Coronary artery disease Unknown brother Unknown Exposure to Agent [place] Unknown brother Cerebral aneurysm Unknown Advance Directives Advance Directive Response Recorded Date/ Time Advance Directives No January 25, 2017 2:08pm Advance Directive Response Recorded Date/ Time Advance Directives No January 25, 2017 1:08pm Date Activated Date Inactivated Comments 01/29/2024 9:31 AM Question Answer Comments Plan of Care: Code Status Discussion Completed Decision Maker: Patient Reason for Referral Specialty Diagnoses / Procedures Referred By Contac t Referred To Contact Diagnoses Persistent atrial fibrillation ([facility]) Procedures Cardioversion external Sarai Velasco MD [address] [place] [address] Referral ID Status Reason Start Date Expiration Date V isits Requested Visits Authorized [id number] Pending Review 06/04/2023 06/03/2024 1 1 Specialty Diagnoses / Procedures Referred By Contac t Referred To Contact Diagnoses 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 (Multi) Procedures ECG 12 Lead Daisy Mora MD [address] [facility] 2, [place] [address] [place] [address] Referral ID Status Reason Start Date Expiration Date V isits Requested Visits Authorized [id number] Authorized 07/27/2023 07/26/2024 1 1 Specialty Diagnoses / Procedures Referred By Contac t Referred To Contact Cardiology Diagnoses 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 (Multi) 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 Procedures Cardioversion External Daisy Mora MD [address], [place] [address] [place] [address] Referral ID Status Reason Start Date Expiration Date V isits Requested Visits Authorized [id number] Pending Review 07/27/2023 07/26/2024 1 1 Referral ID Status Reason Start Date Expiration Date V isits Requested Visits Authorized [id number] Authorized 07/27/2023 07/26/2024 1 1 Specialty Diagnoses / Procedures Referred By Contac t Referred To Contact Cardiology Diagnoses 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 (Multi) Procedures Follow Up In Cardiology Daisy Mora MD [address], [address] [place] [address] Daisy Mora MD [address], [address] [place] [address] Referral ID Status Reason Start Date Expiration Date V isits Requested Visits Authorized [id number] Authorized 07/27/2023 07/26/2024 1 1 Reason *FU 11/[address] to dr pineda for rheumatology. labs with Dr Brower. Saw [facility], wants second opinion Diagnosis 1 Multiple joint pain (M25.50) Referral Organization [facility] Referring Provider First Name Melinda Referring Provider Last Name Luba Referring Provider Specialty Nurse Pract itioner Referred Organization [facility] Referred Provider Heladio Pineda Referred Address [address] [place],[address] Referred Provider Specialty Internal Med icine Referral [...] 1 Tongue ulceration (K 14.0) Referral Organization [facility] Inocente Al C neyda Referring Provider First Name Vitaliy Referring Provider Last Name Inocente Referring Provider Specialty Internal Me dicine Referred Organization [facility] Referred Provider Radha Blackburn Referred Address ,[place], [place],[address] Referred Provider Specialty Ear, Nose an d [...] or prosecute any alcohol or drug abuse patient.[facility] the event this information is protected by the Federal Confidentiality of Alcohol and Drug Abuse Patient Records regulations: The Federal rules restrict any use of the information to criminally investigate or prosecute any alcohol or drug abuse patient.[facility] the event this information is protected by the Federal Confidentiality of Alcohol and Drug Abuse Patient Records regulations: The Federal rules restrict any use of the information to criminally investigate or prosecute any alcohol or drug abuse patient.[facility] the event this information is protected by the Federal Confidentiality of Alcohol and Drug Abuse Patient Records regulations: The Federal rules restrict any use of the information to criminally investigate or prosecute any alcohol or drug abuse patient.[facility] Center[facility] the event this information is protected by the Federal Confidentiality of Alcohol and Drug Abuse Patient Records regulations: The Federal rules restrict any use of the information to criminally investigate or prosecute any alcohol or drug abuse patient.[facility] CenterIn the event this information is protected by the Federal Confidentiality of Alcohol and Drug Abuse Patient Records regulations: The Federal rules restrict any use of the information to criminally investigate or prosecute any alcohol or drug abuse patient.[facility] CenterIn the event this information is protected by the Federal Confidentiality of Alcohol and Drug Abuse Patient Records regulations: The Federal rules restrict any use of the information to criminally investigate or prosecute any alcohol or drug abuse patient.[facility] CenterIn the event this information is protected by the Federal Confidentiality of Alcohol and Drug Abuse Patient Records regulations: The Federal rules restrict any use of the information to criminally investigate or prosecute any alcohol or drug abuse patient.[facility] CenterIn the event this information is protected by the Federal Confidentiality of Alcohol and Drug Abuse Patient Records regulations: The Federal rules restrict any use of the information to criminally investigate or prosecute any alcohol or drug abuse patient.[facility] CenterIn the event this information is protected by the Federal Confidentiality of Alcohol and Drug Abuse Patient Records regulations: The Federal rules restrict any use of the information to criminally investigate or prosecute any alcohol or drug abuse patient.[facility] CenterIn the event this information is protected by the Federal Confidentiality of Alcohol and Drug Abuse Patient Records regulations: The Federal rules restrict any use of the information to criminally investigate or prosecute any alcohol or drug abuse patient.[facility] CenterIn the event this information is protected by the Federal Confidentiality of Alcohol and Drug Abuse Patient Records regulations: The Federal rules restrict any use of the information to criminally investigate or prosecute any alcohol or drug abuse patient.[facility] CenterIn the event this information is protected by the Federal Confidentiality of Alcohol and Drug Abuse Patient Records regulations: The Federal rules restrict any use of the information to criminally investigate or prosecute any alcohol or drug abuse patient.[facility] CenterIn the event this information is protected by the Federal Confidentiality of Alcohol and Drug Abuse Patient Records regulations: The Federal rules restrict any use of the information to criminally investigate or prosecute any alcohol or drug abuse patient.[facility] CenterIn the event this information is protected by the Federal Confidentiality of Alcohol and Drug Abuse Patient Records regulations: The Federal rules restrict any use of the information to criminally investigate or prosecute any alcohol or drug abuse patient.[facility] CenterIn the event this information is protected by the Federal Confidentiality of Alcohol and Drug Abuse Patient Records regulations: The Federal rules restrict any use of the information to criminally investigate or prosecute any alcohol or drug abuse patient.[facility] the event this information is protected by the Federal Confidentiality of Alcohol and Drug Abuse Patient Records regulations: The Federal rules restrict any use of the information to criminally investigate or prosecute any alcohol or drug abuse patient.[facility] Center[facility] the event this information is protected by the Federal Confidentiality of Alcohol and Drug Abuse Patient Records regulations: The Federal rules restrict any use of the information to criminally investigate or prosecute any alcohol or drug abuse patient.[facility] REASON FOR VISIT (unrecogniz ed section and content) Reason Comments Consult Pain Ongoing generalized pain. Reason Comments Results Reason Comments Refill Request Reason Comments Follow Up Reason Comments Results Orders Reason Comments New Patient Visit [facility], previous [facility] patient Specialty Diagnoses / Procedures Referred By Contac t Referred To Contact Diagnoses 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 (Multi) Procedures ECG 12 Lead Daisy Mora MD [address] [place], [place] [id number] Referral ID Status Reason Start Date Expiration Date V isits Requested Visits Authorized [id number] Authorized 07/27/2023 07/26/2024 1 1 Reason Comments EKG visit Specialty Diagnoses / Procedures Referred By Contac t Referred To Contact Diagnoses 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 (Multi) Procedures ECG 12 Lead Daisy Mora MD [facility] 2, [place] [address] [place] [id number] Referral ID Status Reason Start Date Expiration Date V isits Requested Visits Authorized [id number] Authorized 07/27/2023 07/26/2024 1 1 Reason Onset Date Comments Refill Request 12/13/2023 Reason Comments Follow-up Watchman 01/29/24 Reason Comments Follow-up 3 month Specialty Diagnoses / Procedures Referred By Mario t Referred To Contact Cardiology Diagnoses 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 (Multi) Procedures Follow Up In Cardiology Daisy Mora MD [address] [facility] 2, [address] [address] Daisy Mora MD [facility] 2, [address] [address] Referral ID Status Reason Start Date Expiration Date V isits Requested Visits Authorized [id number] Authorized 07/27/2023 07/26/2024 1 1 Reason Comments [email or web address] Specialty Diagnoses / Procedures Referred By Mario t Referred To Contact Cardiology Diagnoses Persistent atrial fibrillation (Multi) Daisy Mora MD [address] [facility] 2, [address] [address] [place] [address] [place] [address] Referral ID Status Reason Start Date Expiration Date Visits Requested Visits Authorized [id number] Authorized Specialty Services Required 10/26/2023 10/25/2024 1 1 Reason Comments Med Refill Reason Comments Follow-up [facility]M and [facility] 2023 Coronary Artery Disease Hypertension Atrial Fibrillation Hospital Follow-up Reason Onset Date Comments EP Surgery (CDVN) 06/04/2023 Reason Onset Date Comments EP Surgery ( Pt Education) 06/11/2023 Reason Comments Follow Up Pain Ongoing generalized pain. Reason Comments Follow-up 6 month follow up fo r cardiomyopathy Specialty Diagnoses / Procedures Referred By Contac t Referred To Contact Cardiology Diagnoses Multi-vessel coronary artery stenosis Procedures Follow Up In Cardiology Daisy Mora MD [facility] [address], [address] [address] Phone: tel: fax: Daisy Mora MD [facility] 2, [address] [address] Phone: tel: fax: Referral ID Status Reason Start Date Expiration Date V isits Requested Visits Authorized [id number] Authorized 02/14/2024 02/13/2025 1 1 Reason Comments Orders Appointment Reason Comments Osteoarthritis CPPD PMR Reason Comments CPPD Gout Arthritis Care Teams (unrecognized sec tion and content) Team Status: Active Member Role Status Dates Vitaliy Brower DO Primary Care Provider Active Team Status: Active Member Role Status Dates Vitaliy Brower DO Primary Care Provider Active Start: June 30, 2024 Heladio Pineda Attending Provider Active Start: Harmony rivas 2024 Team Status: Inactive Member Role Status Nader Brower DO Primary Care Provide r, Attending Provider Active Start: July 01, 2024 End: July 01, 2024 Team Status: Inactive Member Role Status Nader Brower DO Primary Care Provide r, Attending Provider Active Start: July 30, 2024 End: July 30, 2024 Team Status: Inactive Member Role Status Nader Brower DO Primary Care Provider Active Start: August 01, 2024 End: August 01, 2024 Cosmo Guzman APRN Emergency Provider Active Start: August 01, 2024 End: August 01, 2024 Team Status: Inactive Member Role Status Dates Vitaliy Brower DO Primary Care Provider Active Start: August 04, 2024 End: August 04, 2024 Chio Nichole MD Attending Provider Active Start: August 04, 2024 End: August 04, 2024 Team Status: Inactive Member Role Status Dates Vitaliy Brower DO Primary Care Provider Active Start: August 06, 2024 End: August 06, 2024 Sarai Mendez II, MD Attending Provider Active Start: August 06, 2024 End: August 06, 2024 Team Status: Inactive Member Role Status Dates Vitaliy Ball , DO Primary Care Provider Active Start: August 11, 2024 End: August 13, 2024 Winnie Grande , DO Emergency Provider Active St art: August 11, 2024 End: August 13, 2024 Lydia Connelly MD Admit Provider, Atte nding Provider Active Start: August 11, 2024 End: August 13, 2024 Mary Ann Miller RN Other Provider Active Star t: August 11, 2024 End: August 13, 2024 Kathy Valle , DO Other Provider Active Start : August 11, 2024 End: August 13, 2024 Lala Arce MD Other Provider Active Start: August 11, 2024 End: August 13, 2024 Nehemiah Mcknight MD Other Provider Active Start: August 11, 2024 End: August 13, 2024 Daisy Mora MD Other Provider Active St art: August 11, 2024 End: August 13, 2024 Dutch Posadas MD Other Provider Active Start: August 11, 2024 End: August 13, 2024 Geno Corona APRN Other Provider Active Start : August 11, 2024 End: August 13, 2024 Tami Steele MD Other Provider Active Start: M ay 2024 End: August 13, 2024 Arnaldo Mccarty MD Other Provider Active Start: August 11, 2024 End: August 13, 2024 Munir Foote MD Other Provider Active Start: M ay 2024 End: August 13, 2024 Nicolle Amaya , [facility]- Other Provider Active Sta rt: August 11, 2024 End: August 13, 2024 Team Status: Active Member Role Status Dates Vitaliy Brower DO Primary Care Provider Active Start: August 12, 2024 Marcela Ortiz CMA Attending Provider Active Start: August 12, 2024 Team Status: Active Member Role Status Dates Vitaliy Brower DO Primary Care Provider Active Start: August 12, 2024 Winnie Grande DO Emergency Provider Active St art: August 12, 2024 Lydia Connelly MD Admit Provider, Othe r Provider Active Start: August 12, 2024 Mary Ann Miller RN Other Provider Active Star t: August 12, 2024 Kathy Valle , Other Provider Active Start : August 12, 2024 Lala Arce MD Other Provider Active Start: August 12, 2024 Nehemiah Mcknight MD Other Provider Active Start: August 12, 2024 Daisy Mora MD Other Provider Active St art: August 12, 2024 Dutch Posadas MD Other Provider Active Start: August 12, 2024 Geno Corona APRN Other Provider Active Start : August 12, 2024 Tami Steele MD Other Provider Active Start: M ay 2024 Arnaldo Mccarty MD Other Provider Active Start: August 12, 2024 Munir Foote MD Other Provider Active Start: M ay 2024 Nicolle Amaya , [facility]- Other Provider Active Sta rt: August 12, 2024 Ada Woodruff MD Attending Provider Active Sta rt: August 12, 2024 Team Status: Inactive Member Role Status Dates Vitaliy Brower DO Primary Care Provide r, Attending Provider Active Start: August 19, 2024 End: August 19, 2024 Team Status: Inactive Member Role Status Dates Vitaliy Brower DO Primary Care Provider Active Start: September 09, 2024 End: September 09, 2024 Daisy Mora MD Attending Provider Active Start: September 09, 2024 End: September 09, 2024 Team Status: Inactive Member Role Status Dates Vitaliy Brower DO Primary Care Provider Active Start: May 29, 2024 End: May 29, 2024 Bird Kowalski MD Attending Provider Active St art: May 29, 2024 End: May 29, 2024 Team Status: Active Member Role Status Dates Vitaliy Brower DO Primary Care Provider Active Start: April 22, 2024 Marcela Ortiz CMA Attending Provider Active Start: April 22, 2024 Team Status: Inactive Member Role Status Dates Vitaliy Brower DO Primary Care Provide r, Attending Provider Active Start: May 02, 2024 End: May 02, 2024 Team Status: Inactive Member Role Status Dates Vitaliy Brower DO Primary Care Provider Active Start: [...] Team Status: Active Member Role Status Dates Vitaliy Brower DO Primary Care Provider Active Start: September 05, 2023 Heladio Pineda Attending Provider Active Start: Harmony nelson 2023 Team Status: Active Member Role Status Dates Vitaliy Brower DO Primary Care Provider Active Start: September 07, 2023 CHITRA Moya Attending Provider Active St art: September 07, 2023 Team Status: Inactive Member Role Status Dates Vitaliy Brower DO Primary Care Provide r, Attending Provider Active Start: September 07, 2023 End: September 07, 2023 Team Status: Inactive Member Role Status Dates Vitaliy Brower DO Primary Care Provider Active Start: [...] August 02, 2023 End: August 02, 2023 Daisy Mora MD Attending Provid er, Referring Provider [...] Team Status: Active Member Role Status Dates Vitaliy Brower , DO Primary Care Provider Active Start: August 30, 2023 Erin Suresh MD Emergency Provider Active Start: August 30, 2023 Elliott Talley MD Admit Provide r, Attending Provider Active Start: August 30, 2023 Team Status: Inactive Member Role Status Dates Vitaliy Brower , DO Primary Care Provider Active Sarai Mendez II, MD Attending Provider Active Team Status: Inactive Member Role Status Vitaliy Brower , DO Primary Care Provider, Attending Pr raul Active Team Status: Inactive Member Role Status Vitaliy Inocente , DO Primary Care Provider Active Chio Nichole MD Attending Provider Active Team Status: Inactive Member Role Status Vitaliy Brower , DO Primary Care Provider Active Jonathan Samano MD Attending Provider Active Team Status: Inactive Member Role Status Vitaliy Inocente , DO Primary Care Provider Active Cosmo Guzman APRN Emergency Provider Active Team Status: Inactive Member Role Status Vitaliy Brower , DO Primary Care Provider Active Melinda Verduzco NP-C Attending Provider Active Team Status: Inactive Member Role Status Vitaliy Brower , DO Primary Care Provider Active Sarai Georges MD Attending Provider Active Team Status: Inactive Member Role Status Vitaliy Brower , DO Primary Care Provider Active SERGIO Beatty-C Emergency Provider Active Beater Tender Relationship Specialty Start Date End Date Inocente Vitaliy DO Jackie [address] [place] [address] PCP - General Internal Medicine 01/05/23 Melinda Verduzco, LINE PERSON [address] [place] [address] Referring Orthopedics 11/24/22 Beater Tender Relationship Specialty Start Date End Date Inocente Vitaliy DO Jackie [address] [place] [address] PCP - General Internal Medicine 01/05/23 Melinda Verduzco, LINE PERSON [address] [place] [address] Referring Orthopedics 11/24/22 Beater Tender Relationship Specialty Start Date End Date Vitaliy Brower DO [address] [place] [address] PCP - General Internal Medicine 01/05/23 Melinda Verduzco, LINE PERSON [address] [place] [address] Referring Orthopedics 11/24/22 Beater Tender Relationship Specialty Start Date End Date Vitaliy Brower DO [address] [place] [address] PCP - General Internal Medicine 01/05/23 Melinda Verduzco, LINE PERSON [address] [place] [address] Referring Orthopedics 11/24/22 Team Status: Inactive Member Role Status Dates Provider Conversion Attending Provider Active St art: March 15, 2023 End: March 15, 2023 Team Status: Inactive Member Role Status Dates Vitaliy Brower DO Primary Care Provider Active Start: March 29, 2023 End: March 29, 2023 Sarai Mendez II, MD Attending Provider Active Start: March 29, 2023 End: March 29, 2023 Team Status: Inactive Member Role Status Dates Vitaliy Brower DO Attending Provider Active Sta rt: April 05, 2023 End: April 05, 2023 Team Status: Active Member Role Status Dates Provider Conversion Attending Provider Active St art: April 12, 2023 Team Status: Inactive Member Role Status Dates Vitaliy Brower DO Attending Provider Active Sta rt: May 02, 2023 End: May 02, 2023 Team Status: Inactive Member Role Status Dates Provider Conversion Attending Provider Active St art: May 07, 2023 End: May 07, 2023 Team Status: Inactive Member Role Status Dates Vitaliy Brower DO Primary Care Provider Active Start: May 16, 2023 End: May 16, 2023 Sarai Mendez II, MD Attending Provider Active Start: May 16, 2023 End: May 16, 2023 Team Status: Inactive Member Role Status Dates Vitaliy Brower DO Primary Care Provider Active Start: May 21, 2023 End: May 21, 2023 Sarai Mendez II, MD Attending Provider Active Start: May 21, 2023 End: May 21, 2023 Team Status: Inactive Member Role Status Dates Vitaliy Brower DO Primary Care Provider Active Start: May 21, 2023 End: May 21, 2023 DANIEL DealC Attending Provider Active Start: May 21, 2023 End: May 21, 2023 Beater Tender Relationship Specialty Start Date End Date Vitaliy Brower DO [address] [place] [address] PCP - General Internal Medicine 01/05/23 eMlinda Verduzco, LINE PERSON [address] [address] Referring Orthopedics 11/24/22 Beater Tender Relationship Specialty Start Date End Date Vitaliy Brower DO [address] [place] [address] PCP - General Internal Medicine 01/05/23 Melinda Verduzco, LINE PERSON [address] [place] [address] Referring Orthopedics 11/24/22 Beater Tender Relationship Specialty Start Date End Date Vitaliy Brower DO [address] [place] [address] PCP - General Internal Medicine 01/05/23 Melinda Verduzco, LINE PERSON [address] [place] [address] Referring Orthopedics 11/24/22 Beater Tender Relationship Specialty Start Date End Date Vitaliy Brower DO [address] [facility] [place] [address] PCP - General Internal Medicine 07/12/23 Beater Tender Relationship Specialty Start Date End Date Vitaliy Brower DO PCP - General Internal Medicine 07/12/23 Beater Tender Relationship Specialty Start Date End Date Vitaliy BrowerDO [address] [facility] [address] PCP - General Internal Medicine 01/05/23 Melinda Verduzco, LINE PERSON [address] [place] [address] Referring Orthopedics 11/24/22 Beater Tender Relationship Specialty Start Date End Date Vitaliy Brower DO [address] [place] [address] PCP - General Internal Medicine 01/05/23 Melinda Verduzco, LINE PERSON [address] [place] [address] Referring Orthopedics 11/24/22 Beater Tender Relationship Specialty Start Date End Date Vitaliy BrowerDO [address] [place] [address] PCP - General Internal Medicine 01/05/23 Melinda Verduzco, SUPERVISOR GLUING.LINE PERSON [address] [place] [address] Referring Orthopedics 11/24/22 Team Status: Active Member Role Status Dates Vitaliy Brower DO Primary Care Provide r, Attending Provider Active Start: November 21, 2023 Team Status: Inactive Member Role Status Dates Vitaliy Brower DO Primary Care Provider Active Start: December 31, 2023 End: December 31, 2023 Mehrdad Mcmanus MD Attending Provider Active Start: December 31, 2023 End: December 31, 2023 Team Status: Active Member Role Status Dates Vitaliy Brower DO Primary Care Provider Active Start: December 31, 2023 Mehrdad Mcmanus MD Attending Provider, Other Provider Active Start: December 31, 2023 Team Status: Active Member Role Status Dates Vitaliy Brower DO Primary Care Provider Active Start: December 31, 2023 Imani oCntreras CMA Attending Provider Active St art: December 31, 2023 Team Status: Inactive Member Role Status Dates Vitaliy Brower DO Primary Care Provider Active Start: January 24, 2024 End: January 24, 2024 Bird Kowalski MD Attending Provider Active St art: January 24, 2024 End: January 24, 2024 Beater Tender Relationship Specialty Start Date End Date Vitaliy Brower DO PCP - General Internal Medicine 07/12/23 Team Status: Inactive Member Role Status Dates Vitaliy Brower DO Primary Care Provider Active Start: February 12, 2024 End: February 12, 2024 Chio Nichole MD Attending Provider Active Start: February 12, 2024 End: February 12, 2024 Beater Tender Relationship Specialty Start Date End Date Vitaliy Brower DO PCP - General Internal Medicine 07/12/23 Team Status: Inactive Member Role Status Dates Vitaliy Brower DO Primary Care Provider Active Start: February 18, 2024 End: February 18, 2024 Sukhjinder Montesinos DO Attending Provider Active St art: February 18, 2024 End: February 18, 2024 Beater Tender Relationship Specialty Start Date End Date Vitaliy Brower DO PCP - General Internal Medicine 07/12/23 Beater Tender Relationship Specialty Start Date End Date Vitaliy Brower DO PCP - General Internal Medicine 07/12/23 Beater Tender Relationship Specialty Start Date End Date Vitaliy Brower DO [address] [place] [address] PCP - General 01/08/18 Team Status: Inactive Member Role Status Dates Vitaliy Brower DO Primary Care Provide r, Attending Provider Active Start: March 17, 2024 End: March 17, 2024 Beater Tender Relationship Specialty Start Date End Date Vitaliy Brower DO [address] [place] [address] PCP - General 01/08/18 Beater Tender Relationship Specialty Start Date End Date Vitaliy Brower DO [address] [place] [address] PCP - General 01/08/18 Beater Tender Relationship Specialty Start Date End Date Vitaliy Brower DO [address] [place] [address] PCP - General 01/08/18 Beater Tender Relationship Specialty Start Date End Date Vitaliy Brower DO [address] [place] [address] PCP - General 01/08/18 Beater Tender Relationship Specialty Start Date End Date Vitaliy Brower DO [address] [place] [address] PCP - General Internal Medicine 05/07/24 Beater Tender Relationship Specialty Start Date End Date Vitaliy Brower DO [address] [place] [address] PCP - General Internal Medicine 01/05/23 Melinda Verduzco APRN.LINE PERSON [address] [place] [address] Referring Orthopedics 11/24/22 Beater Tender Relationship Specialty Start Date End Date Vitaliy Brower DO [address] [place] [address] PCP - General Internal Medicine 01/05/23 Melinda Verduzco APRN.LINE PERSON [address] [place] [address] Referring Orthopedics 11/24/22 Team Status: Active Member Role Status Dates Vitaliy Brower DO Primary Care Provider Active Start: August 04, 2024 Chio Nichole MD Attending Provider Active Start: August 04, 2024 Team Status: Active Member Role Status Dates Vitaliy Brower DO Primary Care Provider Active Start: August 06, 2024 Sarai Mendez II, MD Attending Provider Active Start: August 06, 2024 Team Status: Active Member Role Status Dates Vitaliy Brower DO Primary Care Provider Active Start: August 11, 2024 Winnie Grande DO Emergency Provider Active St art: August 11, 2024 Lydia Connelly MD Admit Provider, Attending Provider A ctive Start: August 11, 2024 Beater Tender Relationship Specialty Start Date End Date Vitaliy Brower DO [address] [place] [address] PCP - General Internal Medicine 05/07/24 Beater Tender Relationship Specialty Start Date End Date Vitaliy Brower DO [address] [facility] [place] [address] PCP - General Internal Medicine 01/05/23 Melinda Verduzco APRN.LINE PERSON [address] [place] [address] Referring Orthopedics 11/24/22 Beater Tender Relationship Specialty Start Date End Date Vitaliy Brower DO [address] [place] [address] PCP - General Internal Medicine 01/05/23 Melinda Verduzco, SUPERVISOR GLUING.LINE PERSON [address] [place] [address] Referring Orthopedics 11/24/22 Beater Tender Relationship Specialty Start Date End Date Viatliy Brower DO [address] [place] [address] PCP - General Internal Medicine 01/05/23 Melinda Verduzco, SUPERVISOR GLUING.LINE PERSON [address] [place] [address] Referring Orthopedics 11/24/22 Beater Tender Relationship Specialty Start Date End Date Vitaliy Brower, DO [address] [place] [address] PCP - General Internal Medicine 01/05/23 Melinda Verduzco, SUPERVISOR GLUING.LINE PERSON [address] [place] [address] Referring Orthopedics 11/24/22 Goals (unrecognized section and content) Goals may be documented in a n alternate section (unrecognized sect ion and content) No Status Records FoundNo Status Records FoundNo Status Records FoundNo Status Records FoundNo Status Records FoundNo Status Records FoundNo Status Records FoundNo Status Records FoundNo Status Records FoundNo Status Records Found INFORMATION SOURCE (unrecogn ized section and content) DATE CREATED AUTHOR [facility]/05/2022 [facility] DATE CREATED AUTHOR AUTHOR'S ORGANIZ ATION 06/13/2023 [facility] DATE CREATED AUTHOR AUTHOR'S ORGANIZ ATION 06/29/2023 [facility] DATE CREATED AUTHOR AUTHOR'S ORGANIZ ATION 09/20/[address] [facility] EPIC DATE CREATED AUTHOR AUTHOR'S ORGANIZ ATION 01/31/[address] [facility] DATE CREATED AUTHOR AUTHOR'S ORGANIZ ATION 08/01/2024 [facility] DATE CREATED AUTHOR AUTHOR'S ORGANIZ ATION 08/23/2024 [facility] DATE CREATED AUTHOR AUTHOR'S ORGANIZ ATION 08/25/2024 [facility] DATE CREATED AUTHOR AUTHOR'S ORGANIZ ATION 09/15/2024 [facility] DATE CREATED AUTHOR AUTHOR'S ORGANIZ ATION 09/17/2024 [facility] ys[facility] Scheduled Active and Recently Administ ered Medications (unrecognized section and content) Medication Order 01/27/2024 01/28/2024 01/29/2024 aspirin chewable tablet 324 mg (COMPLETED) 324 mg, oral, Once, On Sun01/29/24 at 1000, For 1 dose, Preprocedure 1004 (Given - Provid er: Telma Steward RN) aspirin EC tablet 81 mg 81 mg, oral, Daily, First dose on Sun01/30/24 at 0900, Phase II/On Unit, Do not crush, chew, or split. ceFAZolin (Ancef) 2 g in dextrose (iso) IV 50 mL (COMPLETED) 2 g, intravenous, at 100 mL/hr, Administer over 30 Minutes, Once, On Sun01/29/24 at 1000, For 1 dose, Preprocedure, Administer within 60 minutes prior to incision. Duplex bag - activate before hanging., Dosing of this medication varies based on severity of illness. Does this patient have sepsis or concern for sepsis (probable or documented infection plus systemic manifestations of infection)? No, Suspected Indication (Select all that apply): Surgical Prophylaxis, Indications: Surgical Prophylaxis 1240 (New Bag - Prov ider: Narinder Tokarsky, RN)1307 (Stopped - Provider: Louie Parra RN) clopidogrel (Plavix) tablet 75 mg 75 mg, oral, Daily, First dose on Sun01/30/24 at 0900, For 180 days, Phase II/On Unit docusate sodium (Colace) capsule 100 mg 100 mg, oral, 2 times daily, First dose on Sun01/29/24 at 2100, Phase II/On Unit, Bowel Regimen - for prevention of constipation Hold for loose stools 2100 (Due) iohexol (OMNIPaque) 350 mg iodine/mL solution 70 mL (COMPLETED) 70 mL, intravenous, Once in imaging, Starting on Sun01/29/24 at 0922, For 1 dose 0929 (Given - Provid er: Juana Jin, RT) pantoprazole (ProtoNix) EC tablet 40 mg(Linked Group 1) 40 mg, oral, Daily before breakfast, First dose on Sun01/30/24 at 0700, Phase II/On Unit, Do not crush, chew, or split. pantoprazole (ProtoNix) injection 40 mg(Linked Group 1) 40 mg, intravenous, Administer over 2 Minutes, Daily before breakfast, First dose on Sun01/30/24 at 0700, Phase II/On Unit, Give if unable to take by mouth. perflutren lipid microspheres (Definity) injection 0.5-10 mL of dilution 0.5-10 mL of dilution, intravenous, Once in imaging, Starting on Sun01/29/24 at 0931, For 1 dose, CV Medications, Contrast - for use by imaging provider only. Prior to administration, Definity product must be activated. First, bring vial to room temperature. Then, shake vial for 45 seconds. Do not use if the 45 second activation cycle has not been completed. Following activation, the product will appear as a milky white suspension and may be used immediately. If not used within 5 minutes of activation, re-suspend by inverting and shaking the vial for 10 seconds. Discard unused product. Administration: Dilute 1.3 mL of activated DEFINITY with 8.7 mL of normal saline in a 10 mL syringe. Inject 0.5 mL of diluted DEFINITY when notified the images/film are unclear to enhance view of Left Ventricular borders. Repeat 0.5 mL of DEFINITY until clear images are obtained, not to exceed 10 mLs. Once images are obtained or limit of medication is reached, flush line with 10 mL of Normal Saline. PRN Medication Order 01/27/2024 01/28/2024 01/29/2024 acetaminophen (Tylenol) oral liquid 650 mg(Linked Group 2) 650 mg, oral, Every 6 hours PRN, pain mild (1-3), first line, Starting on Sun01/29/24 at 1458, Phase II/On Unit, Give oral liquid if patient prefers or per feeding tube if present. If inadequate response within 60 minutes, proceed to next-line agent for same PRN reason or contact provider if no further options ordered. acetaminophen (Tylenol) suppository 650 mg(Linked Group 2) 650 mg, rectal, Every 6 hours PRN, pain mild (1-3), first line, Starting on Sun01/29/24 at 1458, Phase II/On Unit, Give rectally if unable to administer by mouth or feeding tube. If inadequate response within 60 minutes, proceed to next-line agent for same PRN reason or contact provider if no further options ordered., If ordered PRN for pain, nurse is permitted to administer this medication for higher pain scores based on patient preference? Yes acetaminophen (Tylenol) tablet 650 mg(Linked Group 2) 650 mg, oral, Every 6 hours PRN, pain mild (1-3), first line, Starting on Sun01/29/24 at 1458, Phase II/On Unit, If inadequate response within 60 minutes, proceed to next-line agent for same PRN reason or contact provider if no further options ordered., If ordered PRN for pain, nurse is permitted to administer this medication for higher pain scores based on patient preference? Yes clopidogrel (Plavix) tablet (CANCELED) As needed, Starting on Sun01/29/24 at 1328, Intraprocedure 1328 (Given - Provid er: Lilly Wick RN) fentaNYL PF (Sublimaze) injection (CANCELED) As needed, Starting on Sun01/29/24 at 1240, Intraprocedure 1240 (Given - Provid er: Lilly Wick RN)1242 (Given - Provider: Lilly Wick RN)1250 (Given - Provider: Lilly Wick RN)1254 (Given - Provider: Lilly Wick RN)1309 (Given - Provider: Lilly Wick RN) heparin 1,000 unit/mL injection (CANCELED) As needed, Starting on Sun01/29/24 at 1245, Intraprocedure 1245 (Given - Provid er: Lilly Wick RN) iohexol (OMNIPaque) 300 mg iodine/mL solution (CANCELED) As needed, Starting on Sun01/29/24 at 1322, Intraprocedure 1322 (Given - Provid er: Bird Kowalski MD - Comment: Injection) lidocaine PF (Xylocaine) 10 mg/mL (1 %) injection (CANCELED) As needed, Starting on Sun01/29/24 at 1241, Intraprocedure 1241 (Given - Provid er: Lilly Wick RN - Comment: Right groin) lidocaine-epinephrine (Xylocaine W/EPI) 1 %-1:100,000 injection (CANCELED) As needed, Starting on Sun01/29/24 at 1322, Intraprocedure 1322 (Given - Provid er: Bruno Almaguer MD - Comment: Administered right groin.) lidocaine-epinephrine (Xylocaine W/EPI) 2 %-1:100,000 injection 5 mL (COMPLETED) 5 mL, subcutaneous, Once as needed, to oozing access site, Starting on Sun01/29/24 at 1458, For 1 dose, Phase II/On Unit, Inject at site of bleed 1558 (Given - Provid er: Jesus Meza RN - Comment: R groin) midazolam (Versed) injection (CANCELED) As needed, Starting on Sun01/29/24 at 1240, Intraprocedure 1240 (Given - Provid er: Lilly Wick RN)1243 (Given - Provider: Lilly Wick RN)1250 (Given - Provider: Lilly Wick RN)1254 (Given - Provider: Lilly Wick RN)1309 (Given - Provider: Lilly Wick RN) ondansetron (Zofran) injection 4 mg(Linked Group 3) 4 mg, intravenous, Every 8 hours PRN, nausea/vomiting, first line, Starting on Sun01/29/24 at 1458, Phase II/On Unit, 1st Line. Give IV if patient is unable to take orally. If inadequate response within 60 minutes, proceed to next-line agent for same PRN reason or contact provider if no further options ordered. When administering via IV Push, administer over 3-5 minutes. ondansetron ODT (Zofran-ODT) disintegrating tablet 4 mg(Linked Group 3) 4 mg, oral, Every 8 hours PRN, nausea/vomiting, first line, Starting on Sun01/29/24 at 1458, Phase II/On Unit, 1st Line. Patient should allow tablet to dissolve on tongue. Do not remove from blister pack until just before administering. If inadequate response within 60 minutes, proceed to next-line agent for same PRN reason or contact provider if no further options ordered. protamine injection (COMPLETED) Continuous PRN, Starting on Sun01/29/24 at 1316, Intraprocedure 1316 (New Bag - Prov ider: Lilly iWck RN - Comment: 50mg protamine infusing 10 minutes in a 50ml NS bag.) traMADol (Ultram) tablet 50 mg 50 mg, oral, Every 6 hours PRN, pain moderate (4-6), first line, Starting on Sun01/29/24 at 1458, Phase II/On Unit, If ordered PRN for pain, nurse is permitted to administer this medication for higher pain scores based on patient preference? Yes Linked Groups Order Group 1: pantoprazole (ProtoNix) EC tablet 40 mgJump to med 40 mg, oral, Daily before breakfast, First dose on Sun01/30/24 at 0700, Phase II/On Unit, Do not crush, chew, or split. Or pantoprazole (ProtoNix) injection 40 mgJump to med 40 mg, intravenous, Administer over 2 Minutes, Daily before breakfast, First dose on Sun01/30/24 at 0700, Phase II/On Unit, Give if unable to take by mouth. Group 2: acetaminophen (Tylenol) tablet 650 mgJump to med 650 mg, oral, Every 6 hours PRN, pain mild (1-3), first line, Starting on Sun01/29/24 at 1458, Phase II/On Unit, If inadequate response within 60 minutes, proceed to next-line agent for same PRN reason or contact provider if no further options ordered., If ordered PRN for pain, nurse is permitted to administer this medication for higher pain scores based on patient preference? Yes Or acetaminophen (Tylenol) oral liquid 650 mgJump to med 650 mg, oral, Every 6 hours PRN, pain mild (1-3), first line, Starting on Sun01/29/24 at 1458, Phase II/On Unit, Give oral liquid if patient prefers or per feeding tube if present. If inadequate response within 60 minutes, proceed to next-line agent for same PRN reason or contact provider if no further options ordered. Or acetaminophen (Tylenol) suppository 650 mgJump to med 650 mg, rectal, Every 6 hours PRN, pain mild (1-3), first line, Starting on Sun01/29/24 at 1458, Phase II/On Unit, Give rectally if unable to administer by mouth or feeding tube. If inadequate response within 60 minutes, proceed to next-line agent for same PRN reason or contact provider if no further options ordered., If ordered PRN for pain, nurse is permitted to administer this medication for higher pain scores based on patient preference? Yes Group 3: ondansetron ODT (Zofran-ODT) disintegrating tablet 4 mgJump to med 4 mg, oral, Every 8 hours PRN, nausea/vomiting, first line, Starting on Sun01/29/24 at 1458, Phase II/On Unit, 1st Line. Patient should allow tablet to dissolve on tongue. Do not remove from blister pack until just before administering. If inadequate response within 60 minutes, proceed to next-line agent for same PRN reason or contact provider if no further options ordered. Or ondansetron (Zofran) injection 4 mgJump to med 4 mg, intravenous, Every 8 hours PRN, nausea/vomiting, first line, Starting on Sun01/29/24 at 1458, Phase II/On Unit, 1st Line. Give IV if patient is unable to take orally. If inadequate response within 60 minutes, proceed to next-line agent for same PRN reason or contact provider if no further options ordered. When administering via IV Push, administer over 3-5 minutes. FOR RECORDS PERTAINING TO PATIENTS WHO ARE [...] BE BASED ON THE PRIMARY CLINICAL RECORDS. [facility]. provides no warranty or guarantee of the accuracy or completeness of information in this document.
[2024-09-28 17:20] LABS: Basophils Absolute Auto 0.1 10^3/uL (0.0-0.1); Basophils Percent Auto 0.4 % (0.2-2.0); Eosinophils Percent Auto 0.1 % (0.9-7.0); Hematocrit 49.1 % (42.0-54.0); Hemoglobin 17.1 g/dL (14.0-18.0); Immature Granulocytes Abs Auto 0.11 10^3/uL (0.00-0.03); Immature Granulocytes Pct Auto 0.7 % (0.0-0.5); Lymphocytes Absolute Auto 1.7 10^3/uL (1.2-3.8); Mean Corpuscular HGB Conc 34.8 g/dL (29.9-35.2); Mean Corpuscular Hemoglobin 34.4 pg (25.9-34.0); Mean Corpuscular Volume 98.8 fL (80.0-94.0); Monocytes Absolute Auto 0.5 10^3/uL (0.3-0.8); Monocytes Percent Auto 3.4 % (1.7-12.0); Neutrophils Absolute Auto 12.8 10^3/uL (1.4-6.5); Neutrophils Percent Auto 84.4 % (43.0-75.0); Platelet Count 265 10^3/uL (150-450); Red Blood Count 4.97 10^6/uL (4.70-6.10); White Blood Count 15.1 10^3/uL (4.0-11.0)
[2024-09-28 17:29] LABS: INR 1.09; Prothrombin Time 11.5 sec (9.0-11.6)
[2024-09-28 17:33] LABS: Alanine Aminotransferase 53 U/L (16-63); Alkaline Phosphatase 74 U/L (46-116); Anion Gap 16.9; Aspartate Amino Transferase 28 U/L (15-37); Bilirubin Total 1.5 mg/dL (0.2-1.0); Calcium 9.2 mg/dL (8.5-10.1); Carbon Dioxide 24.1 mmol/L (21.0-32.0); Chloride 100 mmol/L (98-107); Estimated GFR (African America >60 (>=60 mL/min/1.73m^2); Estimated GFR (Non-African Ame 58 (>=60 mL/min/1.73m^2); Globulin 3.9 g/dL; Glucose 229 mg/dL (74-106); Sodium 137 mmol/L (136-145); Total Protein 7.9 g/dL (6.4-8.2); Troponin I High Sensitivity 13.1 pg/mL (4.0-76.1)
[2024-09-28] MEDS: MORPHINE SULFATE 2 MG/ML SYRINGE IV (17:40)
[2024-09-28] MEDS: 0.9 % SODIUM CHLORIDE 1,000 ML 500 ML IV (17:40)
--- NOTE | 2024-09-28 17:44 | ED.CHESTPAI1 ---
HPI - Chest Pain General Chief Complaint: Chest Pain Stated Complaint: CHEST PAIN Time Seen by Provider: 09/28/24 17:08 Source: patient Mode of arrival: Wheelchair Limitations: no limitations History of Present Illness HPI narrative: The patient is a 63-year-old male is coming to the ER with chest pain that is retrosternal, the patient is coming to us with an obvious skin exposure he has spent multiple hours in the last few hours outside, the patient mentioned that he thinks that he is in A-fib too, the patient does not give a lot of details about the chest pain as he is very convinced that this is another heart attack The patient also mentioned that he have similar symptoms whenever he have A-fib and he last had that 3 weeks ago when he had cardioversion, the patient was not given medication he was going to get ablation if you have another episode of A-fib There is no shortness of breath no cough no fever and the patient gave the pain right now 4 out of 10 The patient recently had some of his medication stopped because his blood pressure was low Related Data Home Medications ?Medication ?Instructions ?Recorded ?Confirmed allopurinol 100 mg tablet 200 mg PO DAILY 09/28/24 09/28/24 alprazolam 0.5 mg tablet 0.5 mg PO BEDTIME 09/28/24 09/28/24 aspirin 81 mg capsule 81 mg PO DAILY 09/28/24 09/28/24 colchicine 0.6 mg capsule 0.6 mg PO DAILY 09/28/24 09/28/24 ergocalciferol (vitamin D2) 1,250 100,000 unit PO DAILY 09/28/24 09/28/24 mcg (50,000 unit) capsule escitalopram oxalate 20 mg tablet 20 mg PO DAILY 09/28/24 09/28/24 levothyroxine 150 mcg tablet 150 mcg PO DAILY 09/28/24 09/28/24 methylprednisolone 4 mg tablet 4 mg PO Q12H 09/28/24 09/28/24 metoprolol succinate 50 mg 50 mg PO DAILY 09/28/24 09/28/24 tablet,extended release 24 hr pantoprazole 40 mg tablet,delayed 40 mg PO DAILY 09/28/24 09/28/24 release spironolactone 25 1 tab PO DAILY 09/28/24 09/28/24 mg-hydrochlorothiazide 25 mg tablet valacyclovir 500 mg tablet 500 mg PO DAILY 09/28/24 09/28/24 Allergies Allergy/AdvReac Type Severity Reaction Status Date / Time prednisone AdvReac Severe Unknown Verified 04/19/24 12:15 Review of Systems ROS Status of ROS 10 or more systems reviewed and unremarkable except as noted in history and below PFSH PFSH Social History Little interest or pleasure in doing things: not at all Feeling down, depressed, or hopeless: not at all Exam Narrative Exam Narrative: Nurses notes and vital signs reviewed and patient is not hypoxic. General: Well-appearing and in no apparent distress. Skin: Skin burn to the face that is obvious No rash. Head: Normocephalic, atraumatic. Neck: Supple, non-tender. Cardiovascular: irregular Rate and Rhythm without murmur, gallop or rub. Respiratory: No accessory muscle use or respiratory distress. Lungs are clear to auscultation, no wheezing, rales or rhonchi Chest Wall: no tenderness Back: No midline thoracic or lumbar vertebral tenderness. No CVA tenderness Musculoskeletal: normal ROM, no calf or popliteal tenderness, no lower extremity edema/swelling GI: Abdomen is soft, non-distended. Normal bowel sounds. No masses appreciated. No tenderness to palpation. No rebound, guarding, or rigidity noted. Neurological: A&O x4. No cranial nerve dysfunction observed. No truncal ataxia. Moves all extremities. Sensation intact. Psychiatric: Cooperative and interactive. Normal mood and affect. Constitutional Vital Signs, click to edit/add: Last Vital Signs Temp 99.1 F 09/28/24 17:05 Pulse 114 H 09/28/24 17:05 Resp 31 H 09/28/24 17:05 BP 115/99 H 09/28/24 17:05 Pulse Ox 96 09/28/24 17:05 O2 Del Method Room Air 09/28/24 17:05 Course Vital Signs Vital signs: Vital Signs Temperature 99.1 F 09/28/24 17:05 Pulse Rate 114 H 09/28/24 17:05 Respiratory Rate 31 H 09/28/24 17:05 Blood Pressure 115/99 H 09/28/24 17:05 Pulse Oximetry 96 09/28/24 17:05 Oxygen Delivery Method Room Air 09/28/24 17:05 Temperature 99.1 F 09/28/24 17:05 Pulse Rate 114 H 09/28/24 17:05 Respiratory Rate 31 H 09/28/24 17:05 Blood Pressure 115/99 H 09/28/24 17:05 Pulse Oximetry 96 09/28/24 17:05 Oxygen Delivery Method Room Air 09/28/24 17:05 MDM - Chest Pain MDM Narrative Medical decision making narrative: The patient is in A-fib the with the EKG is showing heart rate of 106 and the there is T wave inversion in lead V6 The patient old EKG reviewed from file and it does show the same results The patient CBC and chemistry shows elevated BUN and also elevation of the white blood cell which mostly reactive at the patient does not have any source of infection The troponin is not elevated and we will repeat another troponin at 6:50 PM The patient chest x-ray also pending The patient have multiple risk factor including CABG and multiple stents with a recent diagnosis of A-fib Right now the patient rate is controlled he was started on IV fluid in addition to morphine for hydration--- the patient pain resolved after morphine The patient awaiting the result of the second troponin care will be transferred to Dr. Monaco Lab Data Labs: Lab Results 09/28/24 Range/Units 17:10 WBC 15.1 H (4.0-11.0) 10^3/uL RBC 4.97 (4.70-6.10) 10^6/uL Hgb 17.1 (14.0-18.0) g/dL Hct 49.1 (42.0-54.0) % MCV 98.8 H (80.0-94.0) fL MCH 34.4 H (25.9-34.0) pg MCHC 34.8 (29.9-35.2) g/dL RDW 13.0 (11.0-15.0) % Plt Count 265 (150-450) 10^3/uL MPV 11.0 (9.5-13.5) fL Neut % (Auto) 84.4 H (43.0-75.0) % Lymph % (Auto) 11.0 L (20.5-60.0) % Nelson % (Auto) 3.4 (1.7-12.0) % Eos % (Auto) 0.1 L (0.9-7.0) % Baso % (Auto) 0.4 (0.2-2.0) % Neut # (Auto) 12.8 H (1.4-6.5) 10^3/uL Lymph # (Auto) 1.7 (1.2-3.8) 10^3/uL Nelson # (Auto) 0.5 (0.3-0.8) 10^3/uL Eos # (Auto) 0.0 (0.0-0.7) 10^3/uL Baso # (Auto) 0.1 (0.0-0.1) 10^3/uL Abs Immat Gran (auto) 0.11 H (0.00-0.03) 10^3/uL Imm/Tot Granulo (auto) 0.7 H (0.0-0.5) % PT 11.5 (9.0-11.6) sec INR 1.09 Sodium 137 (136-145) mmol/L Potassium 4.0 (3.5-5.1) mmol/L Chloride 100 (98-107) mmol/L Carbon Dioxide 24.1 (21.0-32.0) mmol/L Anion Gap 16.9 BUN 30.0 H (7.0-18.0) mg/dL Creatinine 1.25 (0.70-1.30) mg/dL Est GFR ( Amer) >60 (>=60 mL/min/1.73m^2) Est GFR (Non-Af Amer) 58 L (>=60 mL/min/1.73m^2) BUN/Creatinine Ratio 24.0 Glucose 229 H (74-106) mg/dL Calcium 9.2 (8.5-10.1) mg/dL Total Bilirubin 1.5 H (0.2-1.0) mg/dL AST 28 (15-37) U/L ALT 53 (16-63) U/L Alkaline Phosphatase 74 (46-116) U/L Troponin I High Sens 13.1 (4.0-76.1) pg/mL Total Protein 7.9 (6.4-8.2) g/dL Albumin 4.0 (3.4-5.0) g/dL Globulin 3.9 g/dL Albumin/Globulin Ratio 1.0 Discharge Plan Discharge Patient Disposition: Still a Patient
[2024-09-28 19:29] LABS: Troponin I High Sensitivity 9.5 pg/mL (4.0-76.1)
--- NOTE | 2024-09-28 19:40 | PC.NURSE ---
Pt noticed his penis was swollen this afternoon. On examination, penis is swollen and reddened and scrotum is warm and reddened , though not particularly swollen. Pt has been having diarrhea x 2 months and lately, urgency of urination with inability to hold it until he gets to the bathroom.
[2024-09-29] VITALS (14 sets, daily range): BP systolic 110; BP diastolic 76; PULSE 85–100; O2SAT 96–98
[2024-09-29] MEDS: LORAZEPAM 0.5 MG TABLET PO (00:53)
== END 2024-09-29 02:19 | disposition short-term general hospital (02) ==
PROVIDERS: Emergency Medicine; Emergency Provider Internal Medicine; PCP Internal Medicine
DX: I25.119 Atherosclerotic heart disease of native coronary artery with unspecified angina pectoris (principal); I48.91 Unspecified atrial fibrillation; R07.9 Chest pain, unspecified; Z95.1 Presence of aortocoronary bypass graft; Z95.5 Presence of coronary angioplasty implant and graft
CPT/HCPCS: 36415; 71045; 80053; 84484; 85025; 85610; 93005; 96374; 99285; J2270

== ENCOUNTER 2024-12-17 14:00 | Emergency (ER) | payer MEDICARE, OTHER, SELFPAY ==
--- OUTSIDE RECORDS SUMMARY | 2024-12-15 15:00 | XMS_ITS | Encounter Summary ---
Author Organization [facility] Address [address] [place] [address] Phone Care Team Providers Care Accounts Adjustable Clerk Name Role Phone Coleman Luz Primary Care Provider [phone] Reason for Visit * Reason Comments Follow-up EKG visit * Cardiovascular (Routine) - Authorized Specialty Diagnoses / Procedures Referred By Contac t Referred To Contact Diagnoses History of cardioversion Abnormal electrocardiogram (ECG) (EKG) Persistent atrial fibrillation (Multi) Procedures ECG 12 Lead Daisy Mora MD [address] [facility] [address] [place] [address] Phone: tel: fax: Referral ID Status Reason Start Date Expiration Date V isits Requested Visits Authorized [id number] Authorized 12/12/2024 12/12/2025 1 1 Encounter Details Date Type Department Care Team (Latest Contact Info) Description 12/15/2024 3:00 PM EDT Ancillary Procedure [facility] [address] [facility] [address] [place] [id number] Keila Garcia CMA Discharge Disposition: Home Social History Tobacco Use Types Packs/Day Years Used Date Smoking Tobacco: Never Smokeless Tobacco: Never Alcohol Use Standard Drinks/Week Comments Yes 7 (1 standard drink = 0.6 oz pur e alcohol) PHQ-2 Answer Date Recorded Patient Health Questionnaire-2 Score 0 12/19/2023 Sex and Gender Information Value Date Recorded Sex Assigned at Not on file Legal Sex Male 9:17 AM EDT Gender Identity Not on file Sexual Orientation Not on file documented as of this encounter Last Filed Vital Signs Vital Sign Reading Time Taken Comments Blood Pressure 108/80 12/15/2024 2:53 PM EDT Pulse 74 12/15/2024 2:53 PM EDT Temperature - - Respiratory Rate - - Oxygen Saturation - - Inhaled Oxygen Concentration - - Weight 102 kg (224 lb) 12/15/2024 2:53 PM EDT Height 177.8 cm (5' 10 ) 12/15/2024 2:53 PM EDT Body Mass Index 32.14 12/15/2024 2:53 PM EDT documented in this encounter Progress Notes * Keila Garcia CMA - 12/15/2024 3:00 PM EDT Patient here for EKG visit ordered by Dr. Mora due to A-Fib. Dr. Arce in suite to review EKG prior to discharge. Patient here due to starting Dofetilide 125 mg twice daily post cardioversion. Medication list Updated verbally. Patient has no cardiac complaints at time of visit. Patient inquired when he can stop the Eliquis? He is to have a shot in the back and needs to be off for [address] Mora to read Vitals: 12/15/24 1453 BP: 108/80 BP Location: Left arm Patient Position: Sitting Pulse: 74 Weight: 102 kg (224 lb) Height: 1.778 m (5' 10 ) EKG done in office today documented in this encounter Plan of Treatment Upcoming Encounters Date Type Department Care Team (Late st Contact Info) Description 12/22/2024 11:30 AM EDT Office Visit [address] [place] [address] Daisy Mora MD [address] [facility] [address] [place] [address] 01/12/2025 1:00 PM EDT Office Visit [facility] [address] [place] [address] [place] [address] [place], [place] [phone] documented as of this encounter Procedures Procedure Name Priority Date/Time Associated Diagnosis Comments ECG 12-LEAD Routine 12/15/2024 2:38 PM EDT History of cardioversion Abnormal electrocardiogram (ECG) (EKG) Persistent atrial fibrillation (Multi) documented in this encounter Visit Diagnoses Not on filedocumented in this encounter Additional Health Concerns Assessment Noted Time A fall risk assessment has been complete d for the patient 12/19/2023 9:52 AM EDT documented as of this encounter Care Teams Accounts Adjustable Clerk Relationship Specialty Start Date End Date Coleman Luz DO [address] [place] [address] PCP - General Internal Medicine 05/07/24 documented as of this encounter
[2024-12-17 14:05] VITALS: BP 136/84; PULSE 73; TEMP 37.2; O2SAT 97; BMI 31.9
--- OUTSIDE RECORDS SUMMARY | 2024-12-17 14:13 | XMS_ITS | Encounter Summary ---
Author Organization [facility] Address [address] [place] [id number] Care Team Providers Care Geophysical Observer Name Role Phone Melinda Verduzco APRN.[place] ACQUISITION ANALYST Unavailable Coleman Luz DO Primary Care Provider Source Comments In the event this information is protected by the Federal Confidentiality of Alcohol and Drug AbusePatient Records regulations: The Federal rules restrict any use of the information to criminally investigate or prosecute any alcohol or drug abuse patient.[facility] Encounter Details Date Type Department Care Team (Late st Contact Info) Description 09/13/2024 Patient Msg Rheumatology [address] [place], [place] [phone] Rose Foster MD [address] [place], [place] [phone] Sorry I missed you! Social History Tobacco Use Types Packs/Day Years Used Date Smoking Tobacco: Never Alcohol Use Standard Drinks/Week Comments Yes 12 (1 standard drink = 0.6 oz pu re alcohol) Area Deprivation Index Answer Date Savage rded National Score (1-100), lower number is lower ri sk 61 09/13/2024 State Score (1-10), lower number is lower risk 4 09/13/2024 Data from: https://www.neighborhoodatlas.[facility]/. Last address used for calculation Malena Bush 09/13/2024 Sex and Gender Information Value Date Recorded Sex Assigned at Not on file Legal Sex Male 8:27 AM EST Gender Identity Not on file Sexual Orientation Not on file Occupation Industry Job Start Date Job End Date Not working now Not on file Not on file Not on file documented as of this encounter Functional Status * Are you deaf or do you have serious difficulty hearing? Answer Date of Assessment Author No 11/27/2013 9:53 AM EDT Jessica Shearer ([employer])(Hist) * Are you blind or do you have serious difficulty seeing, even when wearing glasses? Answer Date of Assessment Author No 11/27/2013 9:53 AM EDT Jessica Shearer ([employer])(Hist) * Do you have serious difficulty walking or climbing stairs? Answer Date of Assessment Author No 11/27/2013 9:53 AM EDT Jessica Shearer ([employer])(Hist) * Do you have difficulty dressing or bathing? Answer Date of Assessment Author No 11/27/2013 9:53 AM EDT Jessica Shearer ([employer])(Hist) * Because of a physical, mental, or emotional condition, do you have difficulty doing errands alone such as visiting a doctor's office or shopping? Answer Date of Assessment Author No 11/27/2013 9:53 AM EDT Jessica Shearer ([employer])(Hist) documented as of this encounter Mental Status * Because of a physical, mental, or emotional condition, do you have serious difficulty concentrating, remembering, or making decisions? Answer Entry Date Author No 11/27/2013 9:53 AM EDT Jessica Shearer ([employer])(Hist) documented in this encounter Plan of Treatment Upcoming Encounters Date Type Department Care Team (Late st Contact Info) Description 06/29/2025 9:00 AM EDT Office Visit Rheumatology [address] [facility] [place] [address] Rose Foster MD [address] [place] [address] Return for gout/osteoarthritis/p seudogout/low vit fu OV 6-12months. 08/25/2025 12:00 PM EDT Office Visit Rheumatology [address] [place] [address] Rose Foster MD [address] [place] [address] Follow up for osteoarthritis/PMR/go ut in 6-12months documented as of this encounter Visit Diagnoses Not on filedocumented in this encounter Care Teams Geophysical Observer Relationship Specialty Start Date End Date Coleman Luz DO [address] [place] [address] PCP - General Internal Medicine 01/05/23 Melinda Verduzco APRN.[place] ACQUISITION ANALYST [address] [place] [address] Referring Orthopedics 11/24/22 documented as of this encounter
--- OUTSIDE RECORDS SUMMARY | 2024-12-17 14:13 | XMS_ITS | Clinical Summary ---
Author Organization [facility] Healthcare Address [address] [place] [address] Care Team Providers Care Qm Nurse Name Role Phone Coleman Luz Primary Care Provider [phone] Allergies Active Allergy Reactions Criticality Noted Date Comments Prednisone Headache,Other 07/27/2023 Other Reaction(s): Agitated, HEADACHES Light sensitivity Medications irbesartan (Avapro) 150 MG tablet 01/04/2023 Active celecoxib (CeleBREX) 200 MG capsule Take 1 capsule by mouth in the morning. 01/04/2023 Active valACYclovir (Valtrex) 500 MG tablet Take 1 tablet by mouth in the morning. 06/29/2023 Active aspirin 81 MG EC tablet 1 (one) time each day at the same time Active levothyroxine (Synthroid, Levoxyl) 150 MCG tablet Take 150 mcg by mouth in the morning. Take before meals. 12/29/2022 Active triamterene-hyd roCHLOROthiazid e (Dyazide) 37.5-25 MG capsule TAKE 1 CAPSULE BY MOUTH EVERY DAY IN THE MORNING FOR 30 DAYS 12/09/2022 Active allopurinol (Zyloprim) 100 MG tablet Take 100 mg by mouth in the morning. 12/29/2022 Active metoprolol succinate XL (Toprol-XL) 50 MG 24 hr tablet Take 50 mg by mouth in the morning. 12/29/2022 Active atorvastatin (Lipitor) 80 MG tablet Take 80 mg by mouth in the morning. 01/04/2023 Active ALPRAZolam (Xanax) 0.5 MG tablet TAKE 1 TABLET BY MOUTH EVERY DAY AT BEDTIME FOR 30 DAYS Active escitalopram (Lexapro) 10 MG tablet Take 10 mg by mouth in the morning. 12/05/2022 Active Rivaroxaban (XARELTO PO) Take by mouth Active Active Problems Problem Noted Date Diagnosed Date FER (obstructive sleep apnea) 09/19/2023 Hypersomnia 09/19/2023 Hypoxia 09/19/2023 Daytime hypersomnolence 09/19/2023 Snoring 09/19/2023 Atrial fibrillation 09/19/2023 Depression 09/19/2023 Coronary artery disease (CAD) excluded Insomnia 09/19/2023 Hypertension 09/19/2023 Family History Medical History Relation Name Comments Nephrolithiasis Mother Stroke Mother pacemaker Mother Relation Name Status Comments Father Mother Social History Tobacco Use Types Packs/Day Years Used Date Smoking Tobacco: Never Smokeless Tobacco: Never Tobacco Cessation:Counseling Given: Not Answered Sex and Gender Information Value Date Recorded Sex Assigned at Not on file Legal Sex Male 6:57 PM EDT Gender Identity Not on file Sexual Orientation Not on file Last Filed Vital Signs Vital Sign Reading Time Taken Comments Blood Pressure 136/82 09/19/2023 10:17 AM EDT Pulse 87 09/19/2023 10:17 AM EDT Temperature - - Respiratory Rate - - Oxygen Saturation - - Inhaled Oxygen Concentration - - Weight 110 kg (243 lb) 09/19/2023 10:17 AM EDT Height 177.8 cm (5' 10 ) 09/19/2023 10:17 AM EDT Body Mass Index 34.87 09/19/2023 10:17 AM EDT Plan of Treatment Health Maintenance Due Date Last Done Comments CT Colonography 1959 Colonoscopy 1959 Colorectal Cancer Screening 1959 FIT-DNA 1959 FIT 1959 FOBT 1959 Sigmoidoscopy 1959 Influenza Vaccine (#1) 2024 3, 02/06/2022, 01/18/2021, Additional history exists Insurance [employer] MEDICARE ADVANTAGE Care Teams Qm Nurse Relationship Specialty Start Date End Date Coleman Luz DO PCP - General Internal Medicine 09/19/23
--- OUTSIDE RECORDS SUMMARY | 2024-12-17 14:13 | XMS_ITS | Encounter Summary ---
Author Organization [facility] Address [address] [place] [address] Phone Care Team Providers Care Bods Developer Name Role Phone Coleman Luz DO Primary Care Provider [phone] Encounter Details Date Type Department Care Team (Late st Contact Info) Description 12/03/2024 Orders Only [facility] [address] [facility] [address] [place] [address] Daisy Mora MD [address] [facility], [address] [place] [address] Multi-vessel coronary artery stenosis; Cardiomyopathy, ischemic Social History Tobacco Use Types Packs/Day Years [...] on file documented as of this encounter Plan of Treatment Upcoming Encounters Date Type Department Care Team (Late st Contact Info) Description 12/22/2024 11:30 AM EDT Office Visit [place] [address] [place] [address] Daisy Mora MD [address] [facility], [address] [place] [address] 01/12/2025 1:00 PM EDT Office Visit [facility] [address] [place] [address] [place] [address] [place] [address] documented as of this encounter Visit Diagnoses Diagnosis Multi-vessel coronary artery stenosis Cardiomyopathy, ischemic Other specified forms of chronic ischemic heart disease documented in this encounter Additional Health Concerns Assessment Noted Time A fall risk assessment has been complete d for the patient 12/19/2023 9:52 AM EDT documented as of this encounter Care Teams Bods Developer Relationship Specialty Start Date End Date Coleman Luz DO [address] [place] [address] PCP - General Internal Medicine 05/07/24 documented as of this encounter
--- OUTSIDE RECORDS SUMMARY | 2024-12-17 14:13 | XMS_ITS | Clinical Summary ---
Author Organization [facility] Address [id number] [address] [place] [address] Care Team Providers Care Food Broker Name Role Phone Coleman Luz Primary Care Provider Allergies Active Allergy Reactions Criticality Noted Date Comments No Known Drug Allergies Other (See Comments) Medications levothyroxine (SYNTHROID, LEVOTHROID) 200 MCG tablet Take 1 tablet (200 mcg total) by mouth in the morning. Active aspirin 81 mg Take 1 tablet (81 mg total) by mouth in the morning. Active ALPRAZolam (XANAX) 0.25 mg tablet Take 1 tablet (0.25 mg total) by mouth nightly. Active metoprolol succinate XL (TOPROL-XL) 50 mg 24 hr tablet Take 1 tablet (50 mg total) by mouth daily. 90 tablet 02/09/2021 Active allopurinoL (ZYLOPRIM) 100 mg tablet Take 1 tablet (100 mg total) by mouth in the morning. 07/23/2021 Active valACYclovir (VALTREX) 500 mg tablet 10/17/2021 Active escitalopram (LEXAPRO) 10 mg tablet Take 1 tablet (10 mg total) by mouth in the morning. 12/05/2022 Active ELIQUIS 5 mg tablet Take 1 tablet (5 mg total) by mouth in the morning and 1 tablet (5 mg total) before bedtime. 05/18/2023 Active celecoxib (CeleBREX) 200 mg capsule Take 1 capsule (200 mg total) by mouth in the morning. Active magnesium oxide (MAGOX) 400 mg tabletIndicatio ns:Hypomagnesem ia Take 1 tablet (400 mg total) by mouth in the morning and 1 tablet (400 mg total) before bedtime. 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 Hypertension Nonrheumatic mitral (valve) insufficiency Hyperlipidemia 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 Obstructive sleep apnea Resolved Problems Problem Noted Date Diagnosed Date Resolved Date Abnormal stress test 01/26/2020 024 Overview (01/26/2020): Added automatically from request for surgery [id number] Abnormal nuclear stress test 01/23/2020 06/04/2023 Mitral stenosis with insufficiency 12/29/2015 10/20/2021 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 10/20/2021 Heart failure 10/20/2021 Encounters Date Type Department Care Team Description 10/02/2024 Refill [facility] [address] [facility] [address] [place] [id number] Geoffrey Carrero, BOAT OUTFITTING SUPERVISOR-LAMINATING PRESS OPERATOR Med Refill from Last 3 Months Family History Medical History Relation Name Comments Stroke Mother Relation Name Status Comments Father Mother Alive Social History Tobacco Use Types Packs/Day Years Used Date Smoking Tobacco: Never Smokeless Tobacco: Never Tobacco Cessation:Counseling Given: Not Answered Alcohol Use Standard Drinks/Week Comments Yes 0 (1 standard drink = 0.6 oz pur e alcohol) Childcare Answer Date Recorded Childcare Unknown 09/18/2018 Employment Answer Date Recorded Employment Unknown 09/18/2018 Hunger Screening Answer Date Recorded Within the past 12 months we worried whether our food would run out before we got money to buy more. Never True 06/04/2023 Within the past 12 months th e food we bought just didn't last and we didn't have money to get more. Never True 06/04/2023 Purpose - Life Answer Date Recorded Purpose and direction in life Unknown Sex and Gender Information Value Date Recorded Sex Assigned at Not on file Legal Sex Male 11:34 AM EDT Gender Identity Not on file Sexual Orientation Not on file Last Filed Vital Signs Vital Sign Reading Time Taken Comments Blood Pressure 114/80 06/04/2023 2:08 PM EST Pulse 94 06/04/2023 2:08 PM EST Temperature 37 C (98.6 F) 02/03/2020 7:34 AM EDT Respiratory Rate 20 04/18/2023 1:30 PM EST Oxygen Saturation 94% 06/04/2023 2:08 PM EST Inhaled Oxygen Concentration - - Weight 108 kg (238 lb) 06/04/2023 2:08 PM EST Height 177.8 cm (5' 10 ) 06/04/2023 2:08 PM EST Body Mass Index 34.15 06/04/2023 2:08 PM EST Plan of Treatment Health Maintenance Due Date Last Done Comments Depression Screening 1971 Zoster (Shingles) Vaccine (1 of 2) 12/16/2009 COVID-19 Vaccine (2023-2 5 season) 2023 04/11/2021, 06/25/2020, 06/04/2020 Adult BMI Screening 06/04/2024 06/04/2023 Tobacco Screening 06/04/2024 06/04/2023 Influenza Vaccine 12/08/2024 02/06/2022, , 01/13/2020, Additional history exists DTaP,Tdap and Td Vaccines (2 - Tdap) 05/14/2030 05/14/2020 Medical Devices Not on file Insurance [employer] MEDICARE Care Teams Food Broker Relationship Specialty Start Date End Date Coleman Luz DO [address] [place] [address] PCP - General 01/08/18
--- OUTSIDE RECORDS SUMMARY | 2024-12-17 14:13 | XMS_ITS | Encounter Summary ---
[id number] [address] [place] [address] Care Team Providers Care Apparel Stock Checker Name Role Phone Coleman Luz DO Primary Care Provider Reason for Visit * Reason Onset Date Comments DOT clearance 10/12/2021 Encounter Details Date Type Department Care Team (Late st Contact Info) Description 10/12/2021 Telephone [facility] [address] [place] [phone] Zhane Ceja RN DOT clearance Social History Tobacco Use Types Packs/Day Years Used Date Smoking Tobacco: Never Smokeless Tobacco: Never Alcohol Use Standard Drinks/Week Comments Yes 0 (1 standard drink = 0.6 oz pur e alcohol) Childcare Answer Date Recorded Childcare Unknown 09/18/2018 Employment Answer Date Recorded Employment Unknown 09/18/2018 Purpose - Life Answer Date Recorded Purpose and direction in life Unknown Sex and Gender Information Value Date Recorded Sex Assigned at Not on file Legal Sex Male 11:34 AM EDT Gender Identity Not on file Sexual Orientation Not on file documented as of this encounter Miscellaneous Notes * Telephone Encounter - Zhane Ceja RN - 10/12/2021 1:20 PM EDT You saw pt on 05/17/21 he is calling in asking 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 thx slm * Telephone Encounter - Paresh Adams MD - 10/12/2021 1:20 PM EDT Can I see him in office to discuss stress test results. We should do limited echo before he sees me. He may need repeat cardiac catheterization * Telephone Encounter - Alba Shelton RN - 10/12/2021 1:20 PM EDT R/c from patient, resume writer reviewed MASs recommendations. Pt is very upset about MASs response as he needs his clearance by next week and he is also going out of town. Pt offered an appt tomorrow at 0830. Pt agreeable. documented in this encounter Plan of Treatment Not on file documented as of this encounter Visit Diagnoses Not on filedocumented in this encounter Care Teams Apparel Stock Checker Relationship Specialty Start Date End Date Coleman Luz DO [address] [place] [address] PCP - General 01/08/18 documented as of this encounter
--- OUTSIDE RECORDS SUMMARY | 2024-12-17 14:13 | XMS_ITS | Clinical Summary ---
Author Organization [facility] Address [address] [place] [address] Care Team Providers Care Academic Support Director Name Role Phone Melinda Verduzco APRN.WIRE TEMPERER Unavailable Coleman Luz DO Primary Care Provider [phone] Allergies No known active allergies Medications albuterol HFA (PROVENTIL HFA, VENTOLIN HFA) 90 mcg/actuation inhaler inhale 2 puffs by mouth every 6 hours 3 Active aspirin, enteric coated (ASPIRIN, ENTERIC COATED) 81 mg EC tablet Take 81 mg by mouth. Active irbesartan (AVAPRO) 150 mg tablet 3 Active metoprolol succinate ER (TOPROL XL) 50 mg 24 hr tablet Take 1 tablet by mouth every afternoon. 3 Active ALPRAZolam (XANAX) 0.5 mg tablet Take 0.5 mg by mouth daily at bedtime. 3 Active atorvastatin (LIPITOR) 80 mg tablet 3 Active levothyroxine (SYNTHROID) 150 mcg tablet Take 1 tablet by mouth every afternoon. 3 Active spironolactone- hctz 25/25 (ALDACTAZIDE) 25-25 mg per tablet Take 1 tablet by mouth every morning. 3 Active magnesium oxide (MAG-OX) 400 mg (241.3 mg magnesium) tablet Take 400 mg by mouth. 4 Active valACYclovir (VALTREX) 500 mg tablet Take 1 tablet by mouth every afternoon. 4 Active escitalopram oxalate (LEXAPRO) 20 mg tablet Take 1 tablet by mouth every afternoon. 4 Active methylPREDNISol one (MEDROL) 4 mgIndications:E levated sed rate,Elevated C-reactive protein (CRP),PMR (polymyalgia rheumatica) ([facility]) Day 1=6tabs with food, Day 2=5tabs, Day 3=4tabs, Day 4=3tabs, Day 5=2tabs, Day 6=1tab, No NSAIDs on med 21 tablet 1 4 Active allopurinol (ZYLOPRIM) 100 mg tabletIndicatio ns:Hyperuricemi a,Idiopathic chronic gout of multiple sites without tophus Take 2 tablets by mouth every afternoon. 180 tablet 3 5 Active ergocalciferol 50,000 unit capsule (VITAMIN D2, DRISDOL)Indicat ions:Vitamin D deficiency (take by mouth with food twice a week, ONE CAPSULE ON SUNDAY AND ONE ON SUNDAY) FOR A TOTAL OF 10 WEEKS. Then once a week thereafter 24 capsule 1 5 Active celecoxib (CELEBREX) 200 mg capsuleIndicati ons:Idiopathic chronic gout of multiple sites without tophus,Pseudogo ut involving multiple joints,Chronic pain of both knees Take 1 capsule by mouth two times a day. 180 capsule 3 5 Active Active Problems Problem Noted Date Diagnosed Date Leg weakness, bilateral 06/30/2024 Chronic pain of both knees 03/05/2023 Pain in right hip 01/05/2023 Rotator cuff arthropathy of left shoulder 2022 Bilateral hand pain 01/05/2023 Secondary osteoarthritis of multiple sites 01/05 Pseudogout involving multiple joints 01/05/2023 PMR (polymyalgia rheumatica) 01/05/2023 Idiopathic chronic gout of multiple sites withou t tophus 01/05/2023 custodial current use of 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 01/05 CHENCHO positive 01/05/2023 Bilateral hand swelling 01/05/2023 Pseudogout 10/29/2013 CAD (coronary artery disease) 10/29/2013 OA (osteoarthritis) 10/29/2013 Hyperlipidemia 10/29/2013 Hypothyroidism 10/29/2013 Swelling of knee joint 06/01/2009 Encounters Date Type Department Care Team Description 12/16/2024 [place] [address] Provider, [facility] Medicare Coverage of Physical Exams 09/26/2024 12:00 PM EDT [facility] Rheumatology [address] [facility] [place] [address] Rose Foster MD Pseudogout involving multiple joints (Primary Dx); Idiopathic chronic gout of multiple sites without tophus; Secondary osteoarthritis of multiple sites; PMR (polymyalgia rheumatica) (HCC); CHENCHO positive; Bilateral hand pain; Long-term use of high-risk medication; Chronic hip pain, bilateral; Rotator cuff arthropathy of left shoulder; custodial current use of 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; Bilateral hand swelling; Chronic pain of both knees; Leg weakness, bilateral; Chronic bilateral low back pain without sciatica; Bilateral knee swelling from Last 3 Months Immunizations Immunization Administration Dates Next Due diphtheria tetanus pertussis (DTaP) vaccine, unspecified formulation 05/14/2020 influenza (aIIV3) vaccine, a ge 65+ yr, trivalent, PF (FLUAD) 01/18/2021 influenza (ccIIV4) vaccine, age 6+ mo, quadrivalent (FLUCELVAX) 01/21/2018 influenza vaccine, split virus 02/06/2022,2019,01/02/2019 Family History Medical History Relation Comments Heart Father Lipids Father Stroke Mother Relation Status Comments Father Mother Social History Tobacco Use Types Packs/Day Years Used Date Smoking Tobacco: Never Tobacco Cessation:Counseling Given: Yes Alcohol Use Standard Drinks/Week Comments Yes 12 (1 standard drink = 0.6 oz pu re alcohol) Area Deprivation Index Answer Date Savage rded National Score (1-100), lower number is lower ri sk 61 09/13/2024 State Score (1-10), lower number is lower risk 4 09/13/2024 Data from: https://www.neighborhoodatlas.medicine.[facility].edu/. Last address used for calculation Malena Bush 09/13/2024 Sex and Gender Information Value Date Recorded Sex Assigned at Not on file Legal Sex Male 8:27 AM EST Gender Identity Not on file Sexual Orientation Not on file Occupation Industry Job Start Date Job End Date Not working now Not on file Not on file Not on file Last Filed Vital Signs Vital Sign Reading Time Taken Comments Blood Pressure 136/85 06/30/2024 9:38 AM EDT Pulse 81 06/30/2024 9:38 AM EDT Temperature 37.2 C (98.9 F) 10/29/2013 3:23 PM EDT Respiratory Rate - - Oxygen Saturation - - Inhaled Oxygen Concentration - - Weight 107 kg (235 lb 14.3 oz) 06/30/2024 9:38 A M EDT Height 179.1 cm (5' 10.5 ) 01/05/2023 10:55 AM E DT Body Mass Index 33.37 01/05/2023 10:55 AM EDT Plan of Treatment Upcoming Encounters Date Type Department Care Team (Late st Contact Info) Description 06/29/2025 9:00 AM EDT Office Visit Rheumatology [address] [place] [address] Rose Foster MD [address] [place] [address] Return for gout/osteoarthritis/p seudogout/low vit fu OV 6-12months. 08/25/2025 12:00 PM EDT Office Visit Rheumatology [address] [place] [address] Rose Foster MD [address] [place] [address] Follow up for osteoarthritis/PMR/go ut in 6-12months Health Maintenance Due Date Last Done Comments Annual PCP Team Chronic Dise ase Visit 12/16/1977 Anxiety Screening 12/16/1977 Depression Screening 12/16/1977 HIV Screening 12/16/1977 LDL Cholesterol 12/16/1977 Lipid Screening 12/16/1994 CT Colonography 12/16/2004 Cologuard (FIT-DNA) 12/16/2004 Colonoscopy 12/16/2004 Colorectal Cancer Screening 12/16/2004 Fecal Occult Blood 12/16/2004 Sigmoidoscopy 12/16/2004 Pneumococcal Vaccine: 50+ (1 of 1 - PCV) 12/16/2009 Shingrix Vaccine (1 of 2) 12/16/2009 Medicare Advantage Annual We llness Visit 04/09/2024 Influenza Vaccine (#1) 2024 3, 02/06/2022, 01/18/2021, Additional history exists Advance Directive Discussion 12/16/2024 Diabetes Screening 07/01/2027 06/30/2024, 1 , 06/12/2023, Additional history exists Prostate Cancer Screening Discussion 07/30/2027 07/29/2022 DTaP,Tdap,Td Vaccine (2 - Tdap) 05/14/2030 RSV Vaccine (1 - 1-dose 75+ series) 12/16/2034 Hepatitis C Screening Completed 01/05/2023, 010 Procedures Procedure Name Priority Date/Time Associated Diagnosis Comments COMPREHENSIVE METABOLIC PANEL Routine 06/30/2024 10:15 AM EDT Elevated LFTs HEPATITIS C ANTIBODY IA WITH CONFIRMATION Routine 01/05/2023 12:31 PM EDT Elevated LFTs from Last 3 Months or Most Recently Relevant to Health Maintenance Results * (ABNORMAL) COMPREHENSIVE METABOLIC PANEL (06/30/2024 10:15 AM EDT) Pathologist [facility] Protein, Total 7.1 6.3 - 8.0 g/dL 06/30/2024 9:41 PM EDT [facility] Albumin 4.1 3.9 - 4.9 g/dL 06/30/2024 9:41 PM EDT [facility] Calcium, Total 9.7 8.5 - 10.2 mg/dL 06/30/2024 9:41 PM EDT [facility] Bilirubin, Total 0.7 0.2 - 1.3 mg/dL 06/30/2024 9:41 PM EDT [facility] Alkaline Phosphatase 67 38 - 113 U/L 06/30/2024 9:41 PM EDT [facility] AST 35 14 - 40 U/L 06/30/2024 9:41 PM EDT [facility] ALT 73(H) 10 - 54 U/L 06/30/2024 9:41 PM EDT [facility] Glucose 213(H) 74 - 99 mg/dL 06/30/2024 9:41 PM EDT [facility] Comment: The [place] Diabetes Association (ADA) provides guidance for cutoff [...] Standards of Medical Care in Diabetes 2016, [place] Diabetes Association. Diabetes Care. 2016.39(Suppl 1). BUN 20 9 - 24 mg/dL 06/30/2024 9:41 PM [facility] Creatinine 0.93 0.73 - 1.22 mg/dL 06/30/2024 9:41 PM [facility] Sodium 135(L) 136 - 144 mmol/L 06/30/2024 9:41 PM [facility] Potassium 4.5 3.7 - 5.1 mmol/L 06/30/2024 9:41 PM [facility] Chloride 97(L) 98 - 107 mmol/L 06/30/2024 9:41 PM [facility] CO2 24 22 - 30 mmol/L 06/30/2024 9:41 PM [facility] Anion Gap 14 8 - 15 mmol/L 06/30/2024 9:41 PM [facility] Estimated Glomerular Filtration Rate 92 >=60 mL/min/1.7 3m 06/30/2024 9:41 PM [facility] Comment:Estimated Glomerular Filtration Rate (eGFR) is calculated using the 2020 CKD-EPI creatinine equation. This equation utilizes serum creatinine, sex, and age as parameters. The creatinine assay has traceable calibration to isotope dilution- mass spectrometry. Refer to KDIGO guidelines for clinical interpretation. In patients with unstable renal function, e.g. those with acute kidney injury, the eGFR may not accurately reflect actual GFR. Blood BLOOD SPECIMEN / Unknown Venipuncture / Unknown 06/30/2024 10:15 AM EDT 06/30/2024 10:16 AM EDT Rose Foster MD LABORATORY Final Result [facility] [address] [facility] [address] [address], * HEPATITIS C ANTIBODY IA WITH CONFIRMATION (01/05/2023 12:31 PM EDT) Hep C Antibody IA Negative Negative 01/06/2023 10:28 AM EDT [facility] Comment:The result suggests no evidence of active infection with Hepatitis C virus. Should recent infection be suspected, repeat testing may be considered 4-6 weeks after this draw. Blood BLOOD SPECIMEN / Unknown Venipuncture / Unknown 01/05/2023 12:31 PM EDT 01/05/2023 12:36 PM EDT Rose Foster MD LABORATORY Final Result Performing Organization Address City/[facility] Co de Phone Number [facility] [address] [address], from Last 3 Months or Most Recently Relevant to Health Maintenance Insurance A[employer] MEDICARE Care Teams Academic Support Director Relationship Specialty Start Date End Date Coleman Luz DO [address] [facility] [place], [place] [id number] PCP - General Internal Medicine 01/05/23 Melinda Verduzco APRN.[facility] [address] [place] [address] [place] [address] Referring Orthopedics 11/24/22
--- OUTSIDE RECORDS SUMMARY | 2024-12-17 14:13 | XMS_ITS | Encounter Summary ---
Author Organization [facility] Address [address] [place] [address] Phone Care Team Providers Care Cork Slabs Sawyer Name Role Phone Sukh Coleman Jackie LIPSCOMB Primary Care Provider [phone] Coleman Luz DO Primary Care Provider [phone] Encounter Details Date Type Department Care Team (Late st Contact Info) Description 08/31/2023 Scanned Document [facility] [address] [place] [id number] Scanning, Generic Provider Social History Tobacco Use Types Packs/Day Years Used Date Smoking Tobacco: Never Smokeless Tobacco: Never Alcohol Use Standard Drinks/Week Comments Yes 7 (1 standard drink = 0.6 oz pur e alcohol) Sex and Gender Information Value Date Recorded Sex Assigned at Not on file Legal Sex Male 9:17 AM EDT Gender Identity Not on file Sexual Orientation Not on file COVID-19 Exposure Response Date Recorded In the last 10 days, have yo u been in contact with someone who was confirmed or suspected to have Coronavirus/COVID-19? No / Unsure 08/16/2023 9:44 AM EDT documented as of this encounter Plan of Treatment Upcoming Encounters Date Type Department Care Team (Late st Contact Info) Description 12/22/2024 11:30 AM EDT Office Visit [place] [address] [place] [address] Daisy Mora MD [address] [facility] [address] [place] [address] 01/12/2025 1:00 PM EDT Office Visit [facility] [address] [place] [address] [place] [address] [place], [place] [phone] documented as of this encounter Visit Diagnoses Not on filedocumented in this encounter Care Teams Cork Slabs Sawyer Relationship Specialty Start Date End Date Coleman Luz DO PCP - General Internal Medicine 07/12/23 05/06/24 Coleman Luz DO [address] [place] [address] PCP - General Internal Medicine 05/07/24 documented as of this encounter
--- OUTSIDE RECORDS SUMMARY | 2024-12-17 14:13 | XMS_ITS | Clinical Summary ---
Author Organization [facility] Address [address] [place] [address] Phone Care Team Providers Care High Value Associate Name Role Phone Coleman Luz Primary Care Provider [phone] Allergies Active Allergy Reactions Criticality Noted Date Comments Prednisone Other,Headache 07/27/2023 Light sensitivity. Able to tolerate medrol Medications allopurinol (Zyloprim) 100 mg tablet Take 1 tablet (100 mg) by mouth once daily. 3 Active ALPRAZolam (Xanax) 0.5 mg tablet Take 1 tablet (0.5 mg) by mouth as needed at bedtime for sleep. 3 Active atorvastatin (Lipitor) 80 mg tablet Take 1 tablet (80 mg) by mouth once daily. 3 Active aspirin 81 mg EC tablet Take 1 tablet (81 mg) by mouth once daily. Active escitalopram (Lexapro) 20 mg tablet Take 1 tablet (20 mg) by mouth once daily. 4 Active levothyroxine (Synthroid, Levoxyl) 150 mcg tablet Take 1 tablet (150 mcg) by mouth once daily in the morning. Take before meals. 3 Active methylPREDNISolo ne (Medrol) 4 mg tablet Take 2 tablets (8 mg) by mouth once daily. 4 Active metoprolol succinate XL (Toprol-XL) 50 mg 24 hr tablet Take 1 tablet (50 mg) by mouth once daily. 3 Active spironolacton-hy drochlorothiaz (Aldactazide) 25-25 mg tablet Take 1 tablet (25 mg) by mouth once daily in the morning. Take before meals. 3 Active valACYclovir (Valtrex) 500 mg tablet Take 1 tablet (500 mg) by mouth once daily. 2 Active valsartan (Diovan) 40 mg tabletIndication s:Cardiomyopathy , ischemic Take 1 tablet (40 mg) by mouth once daily. 90 tablet 3 5 11/20/19 26 Active apixaban (Eliquis) 5 mg tabletIndication s:Persistent atrial fibrillation (Multi) Take 1 tablet (5 mg) by mouth 2 times a day. 60 tablet 11 5 11/20/19 26 Active dofetilide (Tikosyn) 125 mcg capsule Take 1 capsule (125 mcg) by mouth every 12 hours. 5 Active magnesium oxide (Mag-Ox) 400 mg tablet 1 tablet (400 mg) once daily. Active Eliquis 5 mg tablet Take 1 tablet (5 mg) by mouth every 12 hours. 5 11/20/19 25 Discontinue d(Discontin ued by another clinician) clopidogrel (Plavix) 75 mg tablet Take 1 tablet (75 mg) by mouth early in the morning.. 5 11/20/19 25 Discontinue d(Discontin ued by another clinician) valsartan (Diovan) 160 mg tablet Take 0.5 tablets (80 mg) by mouth early in the morning.. 5 11/20/19 25 Discontinue d(Discontin ued by another clinician) Active Problems Problem Noted Date Diagnosed Date BMI 32.0-32.9,adult 11/19/2024 Dilated aortic root 01/30/2024 Presence of Watchman left atrial appendage closu re device 01/28/2024 Never smoked cigarettes 10/18/2023 Multi-vessel coronary artery stenosis 07/27/2023 Cardiomyopathy, ischemic 07/27/2023 Mixed hyperlipidemia 07/27/2023 Status post aorto-coronary artery bypass graft 0 07/27/2023 Persistent atrial fibrillation (Multi) 4 Resolved Problems Problem Noted Date Diagnosed Date Resolved Date Atrial fibrillation, unspecified type (Multi) 01/28/20 24 02/14/2024 Atrial fibrillation (Multi) 12/27/2023 02/14/2024 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 (Multi) 07/27/2023 07/27/2023 BMI 32.0-32.9,adult 07/27/2023 11/20/19 25 Encounters Date Type Department Care Team Description 12/15/2024 3:00 PM EDT Ancillary Procedure [address] [address] Keila Garcia CMA Discharge Disposition: Home 12/15/2024 Travel 12/12/[address] [address] Mary Ann Miller RN 12/09/2024 Scanned Document [facility] [address] [place] [address] Scanning, Generic Provider 12/03/2024 Orders Only [address] [address] Daisy Mora MD Multi-vessel coronary artery stenosis; Cardiomyopathy, ischemic 11/27/[address] [address] Daisy Mora MD 11/26/[address] [address] Daisy Mora MD 11/20/[address] [address] Daisy Mora MD 11/19/2024 12:50 PM EDT Office Visit [address] [address] Daisy Mora MD Persistent atrial fibrillation (Multi) (Primary Dx); Multi-vessel coronary artery stenosis; Status post aorto-coronary artery bypass graft; Presence of Watchman left atrial appendage closure device; Mixed hyperlipidemia; Dilated aortic root; Cardiomyopathy, ischemic; Never smoked cigarettes; BMI 32.0-32.9,adult Discharge Disposition: Home 11/19/2024 Travel 10/01/2024 Scanned Document [facility] [address] [place] [address] Scanning, Generic Provider 09/30/2024 Scanned Document [facility] [address] [place] [address] Scanning, Generic Provider 09/29/2024 Scanned Document [facility] [address] [place] [address] Scanning, Generic Provider 09/29/2024 Orders Only [facility] [address] [place] [address] Scanning, Generic Provider from Last 3 Months Immunizations Immunization Administration Dates Next Due DTaP, Unspecified 05/14/2020 Flu vaccine (IIV4), preserva tive free *Check age/dose* 04/05/2023 Influenza, Split (incl. rogerio fied surface antigen) 02/06/2022,01/13/2020,01/02/2019 Influenza, injectable, MDCK, quadrivalent 2017 Influenza, trivalent, adjuvanted 01/18/2021 Pfizer Purple Cap SARS-CoV-2 06/15/2020 Social History Tobacco Use Types Packs/Day Years Used Date Smoking Tobacco: Never Smokeless Tobacco: Never Tobacco Cessation:Counseling Given: Not Answered Alcohol Use Standard Drinks/Week Comments Yes 7 [...] Pulse 74 12/15/2024 2:53 PM EDT Temperature 36.4 C (97.5 F) 12/19/2023 10:00 AM EDT Respiratory Rate 15 01/29/2024 1:21 PM EDT Oxygen Saturation 95% 01/29/2024 1:21 PM EDT Inhaled Oxygen Concentration - - Weight 102 kg (224 lb) 12/15/2024 2:53 PM EDT Height 177.8 cm (5' 10 ) 12/15/2024 2:53 PM EDT Body Mass Index 32.14 12/15/2024 2:53 PM EDT Plan of Treatment Upcoming Encounters Date Type Department Care Team (Late st Contact Info) Description 12/22/2024 11:30 AM EDT Office Visit [place] [address] [place] [address] Daisy Mora MD [address] [place] [address] 01/12/2025 1:00 PM EDT Office Visit [facility] [address] [place] [address] [place] [address] [place] [address] Health Maintenance Due Date Last Done Comments CT Colonography 1959 FIT-DNA (Cologuard) 1959 FIT 1959 Lipid Panel 1959 Sigmoidoscopy 1959 TSH Level 1959 MMR Vaccines (1 of 1 - Standard series) 12/16/1960 Hepatitis C Screening 12/16/1977 Hepatitis A Vaccines (1 of 2 - Risk 2-dose series) 12/16/1978 Pneumococcal Vaccine (1 of 2 - PCV) 12/16/1978 PSA Prostate Cancer Screening 12/16/2009 Zoster Vaccines (1 of 2) 12/16/2009 Hepatitis B Vaccines (1 of 3 - Risk 3-dose series) 2019 RSV High Risk: (Elderly (60+) or Population) (1 - Risk 60-74 years 1-dose series) 2019 Medicare Annual Wellness Visit (AWV) 11/19/2024 11/19/2023 COVID-19 Vaccine (2 - 2024- season) 2024 06/15/2020 Influenza Vaccine (#1) 2024 , 02/06/2022, 01/18/2021, Additional history exists Diabetes Screening 01/28/2025 01/29/2024 DTaP/Tdap/Td Vaccines (2 - Tdap) 05/14/2030 05/14/2020 Colonoscopy 12/30/2033 12/31/2023 Colorectal Cancer Screening 12/30/2033 Bone Density Scan Discontinued 06/28/2023, , 06/28/2023 Welcome to Medicare Visit Discontinued 11/19/2023 HIB Vaccines Aged Out No longer eligi ble based on patient's age to complete this topic HPV Vaccines Aged Out No longer eligi ble based on patient's age to complete this topic IPV Vaccines Aged Out No longer eligi ble based on patient's age to complete this topic Meningococcal Vaccine Aged Out No adelso loraine eligible based on patient's age to complete this topic Rotavirus Vaccines Aged Out No longer eligible based on patient's age to complete this topic Medical Devices Implanted Type Area Completion Engineer Device Identifier Shelf Expiration Date Model / Serial / Lot Joint Hip Joint Hip Bilatera l: Hip Joint Knee Joint Knee Bilatera l: Knee Device, Closure, 27mm Watchman Flx Pro Laac - [id number] Implanted:Qty : 1 on 01/29/2024 by Jasper Kowalski MD at [facility] Other Cardiac Implant N/A: Heart [employer] [id number] 09/18/2026 [id number] / / [id number] Procedures Procedure Name Priority Date/Time Associated Diagnosis Comments ECG 12-LEAD Routine 12/15/2024 2:38 PM EDT History of cardioversion Abnormal electrocardiogram (ECG) (EKG) Persistent atrial fibrillation (Multi) ECG 12-LEAD Routine 11/19/2024 12:50 PM EDT Persistent atrial fibrillation (Multi) OUTSIDE IMAGING SCAN 09/30/2024 CARDIAC CATHETERIZATION PROCEDURE - ONBASE SCAN 09/29/2024 BASIC METABOLIC PANEL STAT 01/29/2024 9:53 AM EDT from Last 3 Months or Most Recently Relevant to Health Maintenance Results * ECG 12 Lead (12/15/2024 2:38 PM EDT) Only the most recent of2 resultswithin the time period is included. Narrative CPACS - 12/16/2024 1:11 PM EDT Normal sinus rhythm with mildly prolonged QTc interval at 495 ms us Daisy Mora MD ECG ORDERABLES Final Resu lt [facility] * OUTSIDE IMAGING SCAN (09/30/2024) Anatomical Region Laterality Modality Other Narrative 09/30/2024 Ordered by an unspecified provider. us Generic Provider Scanning OUTSIDE SCAN Final Result * Cardiac Catheterization - Onbase Scan (09/29/2024) Narrative 09/29/2024 Ordered by an unspecified provider. us Generic Provider Scanning CV CARDIAC CATH PROCED URES Final Result * (ABNORMAL) Basic metabolic panel (01/29/2024 9:53 AM EDT) Glucose 142(H) 74 - 99 mg/dL LAB CHEMISTRY METHOD 01/29/2024 10:51 AM EDT [facility] Sodium 135(L) 136 - 145 mmol/L LAB CHEMISTRY METHOD 01/29/2024 10:51 AM EDT [facility] Potassium 3.7 3.5 - 5.3 mmol/L LAB CHEMISTRY METHOD 01/29/2024 10:51 AM EDT [facility] Chloride 100 98 - 107 mmol/L LAB CHEMISTRY METHOD 01/29/2024 10:51 AM EDT [facility] Bicarbonate 26 21 - 32 mmol/L LAB CHEMISTRY METHOD 01/29/2024 10:51 AM EDT [facility] Anion Gap 13 10 - 20 mmol/L LAB CHEMISTRY METHOD 01/29/2024 10:51 AM EDT [facility] Urea Nitrogen 18 6 - 23 mg/dL LAB CHEMISTRY METHOD 01/29/2024 10:51 AM EDT [facility] Creatinine 1.02 0.50 - 1.30 mg/dL LAB CHEMISTRY METHOD 01/29/2024 10:51 AM EDT [facility] eGFR 82 >60 mL/min/1. 73m*2 LAB CHEMISTRY METHOD 01/29/2024 10:51 AM EDT [facility] Comment: Calculations of estimated GFR are performed using the 2020 CKD-EPI Study Refit equation without the race variable for the IDMS-Traceable creatinine methods. https://jasn.asnjournals.org/content/early//ASN.8859220864 Calcium 9.1 8.6 - 10.6 mg/dL LAB CHEMISTRY METHOD 01/29/2024 10:51 AM EDT [facility] Blood Venous blood specimen / Unknown Venipuncture / Unknown 01/29/2024 9:53 AM EDT 01/29/2024 10:12 AM EDT us Dragan Loredo SPLIT LEATHER DEPARTMENT SUPERVISOR-CAMPAIGN COORDINATOR LAB BLOOD ORDERABLES F inal Result [facility] [address] [facility] [address] [place], [place] [id number] from Last 3 Months or Most Recently Relevant to Health Maintenance Insurance [facility] MEDICARE SUPPLEMENT MEDICARE PART A AND B [facility] MEDICARE SUPPLEMENT MEDICARE PART A AND B Advance Directives For more information, please contact: [phone] (Available ) * Full Code (Latest Code Status on File) Date Activated Date Inactivated Comments 01/29/2024 9:31 AM Question Answer Comments Plan of Care: Code Status Discussion Completed Decision Maker: Patient Care Teams High Value Associate Relationship Specialty Start Date End Date Coleman [place] [address] PCP - General Internal Medicine 05/07/24
--- OUTSIDE RECORDS SUMMARY | 2024-12-17 14:13 | XMS_ITS | Encounter Summary ---
Author Organization [facility] Address [address] [place] [address] Phone Care Team Providers Care Curator Of Photography And Prints Name Role Phone Coleman Luz DO Primary Care Provider Encounter Details Date Type Department Care Team (Late st Contact Info) Description 08/13/[address] [facility] [address] [place] [phone] Scanning, Generic Provider Social History Tobacco Use [...] Description 12/22/2024 11:30 AM EDT Office Visit [place] [address] [place] [address] Daisy Mora MD [address] [place] [address] 01/12/2025 1:00 PM EDT Office Visit [facility] [address] [place] [address] [place] [address] [place], [place] [id number] documented as of this encounter Visit Diagnoses Not on filedocumented in this encounter Additional Health Concerns Assessment Noted Time A fall risk assessment has been complete d for the patient 12/19/2023 9:52 AM EDT documented as of this encounter Care Teams Curator Of Photography And Prints Relationship Specialty Start Date End Date Coleman Luz DO [address] [place] [address] PCP - General Internal Medicine 05/07/24 documented as of this encounter
--- OUTSIDE RECORDS SUMMARY | 2024-12-17 14:13 | XMS_ITS | Encounter Summary ---
Author Organization [facility] Address [facility] [id number] [address] [place] [address] Care Team Providers Care Extrusion Supervisor Name Role Phone Coleman Luz DO Primary Care Provider [phone] Encounter Details Date Type Department Care Team (Late st Contact Info) Description 06/09/2021 Orders Only [facility] [address] [place] [address] External, Scanning Provider Social History Tobacco Use Types Packs/Day [...] Exposure Response Date Recorded In the last month, have you been in contact with someone who was confirmed or suspected to have Coronavirus / COVID-19? No / Unsure 06/01/2021 1:14 PM EST documented as of this encounter Plan of Treatment Not on file documented as of this encounter Procedures Procedure Name Priority Date/Time Associated Diagnosis Comments ECG 12-LEAD Routine 06/06/2021 documented in this encounter Results * ECG 12 lead (06/06/2021) us Scanning Provider External ECG ORDERABLES Final Result MANUALLY TRANSCRIBED RESULTS documented in this encounter Visit Diagnoses Not on filedocumented in this encounter Care Teams Extrusion Supervisor Relationship Specialty Start Date End Date Coleman Luz DO [address] [place] [address] PCP - General 01/08/18 documented as of this encounter
--- OUTSIDE RECORDS SUMMARY | 2024-12-17 14:13 | XMS_ITS | Encounter Summary ---
Author Organization [facility] Address [id number] [address] [place] [address] Care Team Providers Care Spinner Concrete Pipe Name Role Phone Coleman Luz DO Primary Care Provider [phone] Encounter Details Date Type Department Care Team (Late st Contact Info) Description 05/31/2021 Orders Only [facility] [address] [place] [address] Quynh Coates RN Preop testing (Primary Dx); Primary hypertension; Heart failure, unspecified HF chronicity, unspecified heart failure type ([facility]) Social History Tobacco Use Types Packs/Day Years [...] on file documented as of this encounter Results * (ABNORMAL) CBC auto differential (06/01/2021 1:21 PM EST) White Blood Cells 10.2 4.0 - 11.0 X10E9/L 06/01/2021 8:25 PM [facility] RBC count 4.71 4.10 - 5.70 X10E12/L 06/01/2021 8:25 PM [facility] Hemoglobin 16.3 13.0 - 17.0 g/dL 06/01/2021 8:25 PM [facility] Hematocrit 48.4 39 - 49 % 06/01/2021 8:25 PM [facility] MCV 103(H) 80 - 100 fL 06/01/2021 8:25 PM [facility] MCH 34.6(H) 27 - 34 pg 06/01/2021 8:25 PM [facility] MCHC 33.7 32 - 36 g/dL 06/01/2021 8:25 PM [facility] RDW 13.3 11.5 - 15.0 % 06/01/2021 8:25 PM [facility] Platelets 232 150 - 450 X10E9/L 06/01/2021 8:25 PM [facility] MPV 9.4 7 - 12 fL 06/01/2021 8:25 PM [facility] Metamyelocyte 5.8 % 06/01/2021 9:13 PM [facility] Band 2.9 % 06/01/2021 9:13 PM [facility] Seg neutrophil 67.0 % 06/01/2021 9:13 PM [facility] Lymphocyte 16.5 % 06/01/2021 9:13 PM [facility] Monocytes 3.9 % 06/01/2021 9:13 PM [facility] Eosinophil 2.9 % 06/01/2021 9:13 PM [facility] Lymphocyte, atypical 1.0 % 06/01/2021 9:13 PM [facility] Neutrophils Absolute (M) 7.1(H) 1.5 - 6.6 X10E9/L 06/01/2021 9:13 PM [facility] Lymphocytes Absolute 1.8 1.0 - 3.5 X10E9/L 06/01/2021 9:13 PM [facility] Monocytes Absolute 0.4 0 - 0.9 X10E9/L 06/01/2021 9:13 PM [facility] Eosinophils Absolute 0.3 0.0 - 0.4 X10E9/L 06/01/2021 9:13 PM [facility] Blood / Unknown 06/01/2021 1 :21 PM EST 06/01/2021 1:23 PM EST us Paresh Adams MD LAB BLOOD ORDERABLES Edited R esult - Final [facility] [address], [address] [place] [address] * (ABNORMAL) Basic Metabolic Panel (06/01/2021 1:21 PM EST) Sodium 135 134 - 146 mmol/L 06/01/2021 8:23 PM [facility] Potassium, Bld 4.4 3.5 - 5.0 mmol/L 06/01/2021 8:23 PM [facility] Chloride 100 98 - 109 mmol/L 06/01/2021 8:23 PM [facility] CO2 25 22 - 32 mmol/L 06/01/2021 8:23 PM [facility] Anion gap 10 5 - 15 mmol/L 06/01/2021 8:23 PM [facility] BUN 25 5 - 27 mg/dL 06/01/2021 8:23 PM [facility] Creatinine 1.24 0.60 - 1.30 mg/dL 06/01/2021 8:23 PM [facility] Comment:METHOD TRACEABLE TO IDMS STANDARD Glucose 140(H) 65 - 99 mg/dL 06/01/2021 8:23 PM EST [facility] Calcium 9.4 8.5 - 10.5 mg/dL 06/01/2021 8:23 PM EST [facility] GFR MDRD Non Af Amer 59(L) >59 ml/min/1.7 3sq.m 06/01/2021 8:23 PM EST [facility] GFR MDRD Af Amer >60 >59 ml/min/1.7 3sq.m 06/01/2021 8:23 PM EST [facility] PLASMA 06/01/2021 1:21 PM EST 06/01/2021 1:23 PM EST us Paresh Adams MD LAB BLOOD ORDERABLES Final Re sult [facility] [address] [place] [address] * SARS COV 2 (COVID-19) (06/01/2021 1:08 PM EST) Specimen Oropharyngeal 06/01/2021 5:21 PM EST [facility] Sent to Testing to be performed at [facility]. 06/01/2021 5:21 PM EST [facility] COVID-19 [facility] Report to Follow. 06/01/2021 5:21 PM EST [facility] Nasopharyngeal structure / Unknown 06/01/2021 1:08 PM EST 06/01/2021 1:55 PM EST us Paresh Adams MD MICROBIOLOGY - GENERAL ORDERA BLES Final Result [facility] documented in this encounter Visit Diagnoses Diagnosis Preop testing- Primary Unspecified pre-operative examination Primary hypertension Unspecified essential hypertension Heart failure, unspecified HF chronicity, unspecified heart failure type (CMS-HCC) documented in this encounter Care Teams Spinner Concrete Pipe Relationship Specialty Start Date End Date Coleman Luz DO [address] [place] [id number] PCP - General 01/08/18 documented as of this encounter
--- OUTSIDE RECORDS SUMMARY | 2024-12-17 14:13 | XMS_ITS | Encounter Summary ---
Author Organization [facility] Address [address] [place] [address] Phone Care Team Providers Care Edger Hand Name Role Phone Coleman Luz DO Primary Care Provider Encounter Details Date Type Department Care Team (Late st Contact Info) Description 09/30/2024 Scanned Document [facility] [address] [place] [address] Scanning, Generic Provider Social History Tobacco Use [...] Description 12/22/2024 11:30 AM EDT Office Visit [place] [address] [place] [address] Daisy Mora MD [address] [place] [address] 01/12/2025 1:00 PM EDT Office Visit [facility] [address] [place] [address] [place] [address] [place], [place] [id number] documented as of this encounter Procedures Procedure Name Priority Date/Time Associated Diagnosis Comments OUTSIDE IMAGING SCAN 09/30/2024 documented in this encounter Results * OUTSIDE IMAGING SCAN (09/30/2024) Anatomical Region Laterality Modality Other Narrative 09/30/2024 Ordered by an unspecified provider. us Generic Provider Scanning OUTSIDE SCAN Final Result documented in this encounter Visit Diagnoses Not on filedocumented in this encounter Additional Health Concerns Assessment Noted Time A fall risk assessment has been complete d for the patient 12/19/2023 9:52 AM EDT documented as of this encounter Care Teams Edger Hand Relationship Specialty Start Date End Date Coleman Luz DO [address] [place] [address] PCP - General Internal Medicine 05/07/24 documented as of this encounter
--- OUTSIDE RECORDS SUMMARY | 2024-12-17 14:13 | XMS_ITS | Encounter Summary ---
Author Organization [facility] Address [address] [place] [address] Care Team Providers Care Cigarette Seller Name Role Phone Melinda Verduzco APRN.KAIAKO KOHANGA REO Unavailable Coleman Luz DO Primary Care Provider [phone] Source Comments In the event this information is protected by the Federal Confidentiality of Alcohol and Drug AbusePatient Records regulations: The Federal rules restrict any use of the information to criminally investigate or prosecute any alcohol or drug abuse patient.[facility] Encounter Details Date Type Department Care Team (Late st Contact Info) Description 06/24/2024 Patient [facility] -[address] [place] [address] Georgia Malone RPh At your next appointment, choose [facility]. Social History Tobacco Use Types Packs/Day Years Used Date Smoking Tobacco: Never Alcohol Use Standard Drinks/Week Comments Yes 12 (1 standard drink = 0.6 oz pu re alcohol) Area Deprivation Index Answer Date Savage rded National Score (1-100), lower number is lower ri sk 91 01/05/2023 State Score (1-10), lower number is lower risk 9 01/05/2023 Data from: https://www.neighborhoodatlas.medicine.[employer].edu/. Last address used for calculation [address] 01/05/2023 Sex and Gender Information Value Date Recorded [...] No 11/27/2013 9:53 AM EDT Jessica Shearer (Painter Drum)(Hist) * Are you blind or do you have serious difficulty seeing, even when wearing glasses? Answer Date of Assessment Author No 11/27/2013 9:53 AM EDT Jessica Shearer (Painter Drum)(Hist) * Do you have serious difficulty walking or climbing stairs? Answer Date of Assessment Author No 11/27/2013 9:53 AM EDT Jessica Shearer (Painter Drum)(Hist) * Do you have difficulty dressing or bathing? Answer Date of Assessment Author No 11/27/2013 9:53 AM EDT Jessica Shearer (Painter Drum)(Hist) * Because of a physical, mental, or emotional condition, do you have difficulty doing errands alone such as visiting a doctor's office or shopping? Answer Date of Assessment Author No 11/27/2013 9:53 AM EDT Jessica Shearer (Painter Drum)(Hist) documented as of this encounter Mental Status * Because of a physical, mental, or emotional condition, do you have serious difficulty concentrating, remembering, or making decisions? Answer Entry Date Author No 11/27/2013 9:53 AM EDT Jessica Shearer (Painter Drum)(Hist) documented in this encounter Plan of Treatment Upcoming Encounters Date Type Department Care Team (Late st Contact Info) Description 06/29/2025 9:00 AM EDT Office Visit Rheumatology [address] [place], [place] [id number] Rose Foster MD [address] [place] [address] Return for gout/osteoarthritis/p seudogout/low vit fu OV 6-12months. 08/25/2025 12:00 PM EDT Office Visit Rheumatology [address] [facility] [address] Rose Foster MD [address] [place] [address] Follow up for osteoarthritis/PMR/go ut in 6-12months documented as of this encounter Visit Diagnoses Not on filedocumented in this encounter Care Teams Cigarette Seller Relationship Specialty Start Date End Date Coleman Luz DO [address] [place] [address] PCP - General Internal Medicine 01/05/23 Melinda Verduzco APRN.KAIAKO KOHANGA REO [address] [facility] [place] [address] Referring Orthopedics 11/24/22 documented as of this encounter
--- OUTSIDE RECORDS SUMMARY | 2024-12-17 14:13 | XMS_ITS | Encounter Summary ---
Author Organization [facility] Address [id number] [address] [place] [address] Care Team Providers Care Heavy Equipment Mechanic Name Role Phone Coleman Luz DO Primary Care Provider [phone] Encounter Details Date Type Department Care Team (Late st Contact Info) Description 01/13/2020 Orders Only [facility] [address] [place] [address] External, Scanning Provider Social History Tobacco Use Types Packs/Day Years Used Date Smoking Tobacco: Never Smokeless Tobacco: Never Alcohol Use Standard Drinks/Week Comments Yes 0 (1 standard drink = 0.6 oz pur e alcohol) Childcare Answer Date Recorded Childcare Unknown 09/18/2018 Employment Answer Date Recorded Employment Unknown 09/18/2018 Sex and Gender Information Value Date Recorded Sex Assigned at Not on file Legal Sex Male 11:34 AM EDT Gender Identity Not on file Sexual Orientation Not on file COVID-19 Exposure Response Date Recorded In the last month, have you been in contact with someone who was confirmed or suspected to have Coronavirus / COVID-19? No / Unsure 01/13/2020 8:27 AM EDT documented as of this encounter Plan of Treatment Not on file documented as of this encounter Procedures Procedure Name Priority Date/Time Associated Diagnosis Comments VASC CAROTID DUPLEX BILATERAL Routine 12/25/2019 documented in this encounter Results * Vas carotid duplex bilateral (12/25/2019) Anatomical Region Laterality Modality Vascular Bilateral Ultrasound us Scanning Provider External CV VASCULAR ORDERABLE S Final Result documented in this encounter Visit Diagnoses Not on filedocumented in this encounter Additional Health Concerns Infection Onset Date Last Indicated Resolved Time COVID-19 Rule-Out 01/31/2020 01/31/2020 02/01/2020 6:39 AM EDT documented as of this encounter Care Teams Heavy Equipment Mechanic Relationship Specialty Start Date End Date Coleman Luz DO [address] [place] [address] PCP - General 01/08/18 documented as of this encounter
--- OUTSIDE RECORDS SUMMARY | 2024-12-17 14:13 | XMS_ITS | Encounter Summary ---
Author Organization [facility] Address [address] [place] [address] Phone Care Team Providers Care Quenching Machine Operator Name Role Phone Coleman Luz DO Primary Care Provider [phone] Encounter Details Date Type Department Care Team (Late st Contact Info) Description 08/12/2024 Scanned Document [facility] [address] [place] [phone] Scanning, Generic Provider Social History Tobacco Use [...] Description 12/22/2024 11:30 AM EDT Office Visit [place] [address] [place] [address] Daisy Mora MD [address] [place] [address] 01/12/2025 1:00 PM EDT Office Visit [facility] [address] [place] [address] [place] [address] [place], [place] [id number] documented as of this encounter Procedures Procedure Name Priority Date/Time Associated Diagnosis Comments NUCLEAR STRESS TEST - ONBASE SCAN 08/12/2024 documented in this encounter Results * Nuclear Stress Test - Onbase Scan (08/12/2024) Narrative 08/12/2024 Ordered by an unspecified provider. us Generic Provider Scanning CV STRESS PROCEDURES F inal Result documented in this encounter Visit Diagnoses Not on filedocumented in this encounter Additional Health Concerns Assessment Noted Time A fall risk assessment has been complete d for the patient 12/19/2023 9:52 AM EDT documented as of this encounter Care Teams Quenching Machine Operator Relationship Specialty Start Date End Date Coleman Luz DO [address] [place] [address] PCP - General Internal Medicine 05/07/24 documented as of this encounter
--- OUTSIDE RECORDS SUMMARY | 2024-12-17 14:13 | XMS_ITS | Encounter Summary ---
Author Organization [facility] Address [id number] [address] [place] [address] Care Team Providers Care Automatic Bow Maker Machine Tender Name Role Phone Coleamn Luz DO Primary Care Provider [phone] Encounter Details Date Type Department Care Team (Late st Contact Info) Description 06/07/2021 Orders Only [facility] [address] [place] [address] External, Scanning Provider Social History Tobacco Use [...] Procedure Name Priority Date/Time Associated Diagnosis Comments H-CARDIAC CATHETERIZATION Routine 06/06/2021 documented in this encounter Results * Cardiac catheterization (06/06/2021) Anatomical Region Laterality Modality Other us Scanning Provider External CV CARDIAC CATH ORDER DIONICIO Final Result documented in this encounter Visit Diagnoses Not on filedocumented in this encounter Care Teams Automatic Bow Maker Machine Tender Relationship Specialty Start Date End Date Coleman Luz DO [address] [place] [address] PCP - General 01/08/18 documented as of this encounter
--- OUTSIDE RECORDS SUMMARY | 2024-12-17 14:13 | XMS_ITS | Encounter Summary ---
Author Organization [facility] Address [id number] [address] [place] [address] Care Team Providers Care Technology Intern Name Role Phone Coleman Luz DO Primary Care Provider [phone] Encounter Details Date Type Department Care Team (Late st Contact Info) Description 01/29/2020 Orders Only [facility] [address] [place] [phone] External, Scanning Provider Social History Tobacco Use [...] or suspected to have Coronavirus / COVID-19? Unable to assess 01/26/2020 8:29 AM EDT documented as of this encounter Plan of Treatment Not on file documented as of this encounter Procedures Procedure Name Priority Date/Time Associated Diagnosis Comments MULTIPLE LABS Routine 01/28/2020 LIPID PROFILE Routine 01/28/2020 documented in this encounter Results * Lipid profile (01/28/2020) External Cholesterol 145 MANUALLY TRANSCRIBED RESULTS External Cholesterol:Hdl 4.1 MANUALLY TRANSCRIBED RESULTS External Hdl Cholesterol 35 MANUALLY TRANSCRIBED RESULTS External Ldl (Calc) 63 MANUALLY TRANSCRIBED RESULTS External Triglycerides 234 MANUALLY TRANSCRIBED RESULTS External Very Low Lipoprotein 46 MANUALLY TRANSCRIBED RESULTS us Scanning Provider External LAB BLOOD ORDERABLES Edited Result - Final MANUALLY TRANSCRIBED RESULTS * Multiple labs (01/28/2020) us Scanning Provider External TX IMAGING Final Result MANUALLY TRANSCRIBED RESULTS documented in this encounter Visit Diagnoses Not on filedocumented in this encounter Additional Health Concerns Infection Onset Date Last Indicated Resolved Time COVID-19 Rule-Out 01/31/2020 01/31/2020 02/01/2020 6:39 AM EDT documented as of this encounter Care Teams Technology Intern Relationship Specialty Start Date End Date Coleman Luz DO [address] [place] [address] PCP - General 01/08/18 documented as of this encounter
--- OUTSIDE RECORDS SUMMARY | 2024-12-17 14:13 | XMS_ITS | Encounter Summary ---
Author Organization [facility] Address [address] [place] [address] Phone Care Team Providers Care Mold Polisher Name Role Phone Sukh Coleman Jackie LIPSCOMB Primary Care Provider [phone] Coleman Luz DO Primary Care Provider [phone] Encounter Details Date Type Department Care Team (Late st Contact Info) Description 08/30/2023 Scanned Document [facility] [address] [place] [phone] Scanning, Generic Provider Social History Tobacco Use [...] Description 12/22/2024 11:30 AM EDT Office Visit [place] [address] [place] [address] Daisy Mora MD [address] [facility] [address] [place] [address] 01/12/2025 1:00 PM EDT Office Visit [facility] [address] [place] [address] [place] [address] [place], [place] [phone] documented as of this encounter Procedures Procedure Name Priority Date/Time Associated Diagnosis Comments OUTSIDE IMAGING SCAN 08/30/2023 documented in this encounter Results * OUTSIDE IMAGING SCAN (08/30/2023) Anatomical Region Laterality Modality Other Narrative 08/30/2023 Ordered by an unspecified provider. us Generic Provider Scanning OUTSIDE SCAN Final Result documented in this encounter Visit Diagnoses Not on filedocumented in this encounter Care Teams Mold Polisher Relationship Specialty Start Date End Date Coleman Luz DO PCP - General Internal Medicine 07/12/23 05/06/24 Coleman Luz DO [address] [place] [address] PCP - General Internal Medicine 05/07/24 documented as of this encounter
--- OUTSIDE RECORDS SUMMARY | 2024-12-17 14:13 | XMS_ITS | Encounter Summary ---
Author Organization [facility] Address [address] [place] [address] Phone Care Team Providers Care Enterprise Systems Architect Name Role Phone Coleman Luz DO Primary Care Provider [phone] Encounter Details Date Type Department Care Team (Latest Contact Info) Description 12/15/2024 Travel Social History Tobacco Use Types Packs/Day Years [...] Description 12/22/2024 11:30 AM EDT Office Visit [address] [place] [address] Daisy Mora MD [address] [facility] 2, [address] [place] [address] 01/12/2025 1:00 PM EDT Office Visit [facility] [address] [place] [address] [place] [address] [place], [place] [phone] documented as of this encounter Visit Diagnoses Not on filedocumented in this encounter Additional Health Concerns Assessment Noted Time A fall risk assessment has been complete d for the patient 12/19/2023 9:52 AM EDT documented as of this encounter Care Teams Enterprise Systems Architect Relationship Specialty Start Date End Date Coleman Luz DO [address] [place] [address] PCP - General Internal Medicine 05/07/24 documented as of this encounter
--- OUTSIDE RECORDS SUMMARY | 2024-12-17 14:13 | XMS_ITS | Encounter Summary ---
Author Organization [facility] Address [facility] [place] [address] Care Team Providers Care National Account Executive Name Role Phone Melinda Verduzco APRN.EVENT PLANNER Unavailable Coleman Luz DO Primary Care Provider [phone] Source Comments In the event this information is protected by the Federal Confidentiality of Alcohol and Drug AbusePatient Records regulations: The Federal rules restrict any use of the information to criminally investigate or prosecute any alcohol or drug abuse patient.[facility] Encounter Details Date Type Department Care Team (Late st Contact Info) Description 12/16/2024 [place] [address] Provider, [facility] Medicare Coverage of Physical Exams Social History Tobacco Use Types Packs/Day Years Used Date Smoking Tobacco: Never Alcohol Use Standard Drinks/Week Comments Yes 12 (1 standard drink = 0.6 oz pu re alcohol) Area Deprivation Index Answer Date Savage rded National Score (1-100), lower number is lower ri sk 61 09/13/2024 State Score (1-10), lower number is lower risk 4 09/13/2024 Data from: https://www.neighborhoodatlas.medicine.[facility].edu/. Last address used for calculation [address] [...] No 11/27/2013 9:53 AM EDT Jessica Shearer (Probation And Parole Officer)(Hist) * Are you blind or do you have serious difficulty seeing, even when wearing glasses? Answer Date of Assessment Author No 11/27/2013 9:53 AM EDT Jessica Shearer (Probation And Parole Officer)(Hist) * Do you have serious difficulty walking or climbing stairs? Answer Date of Assessment Author No 11/27/2013 9:53 AM EDT Jessica Shearer (Probation And Parole Officer)(Hist) * Do you have difficulty dressing or bathing? Answer Date of Assessment Author No 11/27/2013 9:53 AM EDT Jessica Shearer (Probation And Parole Officer)(Hist) * Because of a physical, mental, or emotional condition, do you have difficulty doing errands alone such as visiting a doctor's office or shopping? Answer Date of Assessment Author No 11/27/2013 9:53 AM EDT Jessica Shearer (Probation And Parole Officer)(Hist) documented as of this encounter Mental Status * Because of a physical, mental, or emotional condition, do you have serious difficulty concentrating, remembering, or making decisions? Answer Entry Date Author No 11/27/2013 9:53 AM EDT Jessica Shearer (Probation And Parole Officer)(Hist) documented in this encounter Plan of Treatment Upcoming Encounters Date Type Department Care Team (Late st Contact Info) Description 06/29/2025 9:00 AM EDT Office Visit Rheumatology [address] [place] [place] [address] Rose Foster MD [address] [place] [address] Return for gout/osteoarthritis/p seudogout/low vit fu OV 6-12months. 08/25/2025 12:00 PM EDT Office Visit Rheumatology [address] [place] [address] Rose Foster MD [address] [place] [address] Follow up for osteoarthritis/PMR/go ut in 6-12months documented as of this encounter Visit Diagnoses Not on filedocumented in this encounter Care Teams National Account Executive Relationship Specialty Start Date End Date Coleman Luz DO [address] [place] [address] PCP - General Internal Medicine 01/05/23 Melinda Verduzco, MAINTENANCE SERVICES DISPATCHER.EVENT PLANNER [address] [place] [address] Referring Orthopedics 11/24/22 documented as of this encounter
--- OUTSIDE RECORDS SUMMARY | 2024-12-17 14:13 | XMS_ITS | Encounter Summary ---
Author Organization [facility] Address [address] [place] [address] Phone Care Team Providers Care Appraiser Name Role Phone Coleman Luz DO Primary Care Provider [phone] Coleman Luz DO Primary Care Provider [phone] Encounter Details Date Type Department Care Team (Late st Contact Info) Description 04/19/2024 [address]anned Document [facility] [address] [place] [phone] Scanning, Generic Provider Social History Tobacco Use [...] Description 12/22/2024 11:30 AM EDT Office Visit [place] [address] [place] [address] Daisy Mora MD [address] [place] [address] 01/12/2025 1:00 PM EDT Office Visit [facility] [address] [place] [address] [place] [address] [place] [address] documented as of this encounter Procedures Procedure Name Priority Date/Time Associated Diagnosis Comments OUTSIDE IMAGING SCAN 04/19/2024 documented in this encounter Results * OUTSIDE IMAGING SCAN (04/19/2024) Anatomical Region Laterality Modality Other Narrative 04/19/2024 Ordered by an unspecified provider. us Generic Provider Scanning OUTSIDE SCAN Final Result documented in this encounter Visit Diagnoses Not on filedocumented in this encounter Additional Health Concerns Assessment Noted Time A fall risk assessment has been complete d for the patient 12/19/2023 9:52 AM EDT documented as of this encounter Care Teams Appraiser Relationship Specialty Start Date End Date Coleman Luz DO PCP - General Internal Medicine 07/12/23 05/06/24 Coleman Luz DO [address] [place] [address] PCP - General Internal Medicine 05/07/24 documented as of this encounter
--- OUTSIDE RECORDS SUMMARY | 2024-12-17 14:13 | XMS_ITS | Encounter Summary ---
Author Organization [facility] Address [id number] [address] [place] [address] Care Team Providers Care Cooky Machine Operator Name Role Phone Coleman Luz DO Primary Care Provider [phone] Encounter Details Date Type Department Care Team (Late st Contact Info) Description 04/07/2021 Orders Only [facility] [address] [place] [address] Quynh Coates RN Social History Tobacco Use Types Packs/Day Years [...] on filedocumented in this encounter Care Teams Cooky Machine Operator Relationship Specialty Start Date End Date Coleman Luz DO [address] [place], [place] [phone] PCP - General 01/08/18 documented as of this encounter
--- OUTSIDE RECORDS SUMMARY | 2024-12-17 14:13 | XMS_ITS | Encounter Summary ---
Author Organization [facility] Address [address] [place] [address] Phone Care Team Providers Care Hypercil Core Transformer Assembler Name Role Phone SukhColeman Primary Care Provider [phone] Reason for Referral * Cardiovascular (Routine) - Authorized Specialty Diagnoses / Procedures Referred By Contac t Referred To Contact Diagnoses History of cardioversion Abnormal electrocardiogram (ECG) (EKG) Persistent atrial fibrillation (Multi) Procedures ECG 12 Lead Daisy Mora MD [address] [facility] [place] [address] Phone: tel: fax: Referral ID Status Reason Start Date Expiration Date V isits Requested Visits Authorized [id number] Authorized 12/12/2024 12/12/2025 1 1 Encounter Details Date Type Department Care Team (Late st Contact Info) Description 12/12/2024 Telephone [facility] [address] [facility] [address] [place] [phone] Mary Ann Miller RN Social History Tobacco Use Types Packs/Day [...] encounter Miscellaneous Notes * Telephone Encounter - Mary Ann Miller RN - 12/12/2024 9:37 AM EDT Patient was elective admission to [facility] on 12/09/2024 for Drug Load- Tikosyn. Patient is in electively for dofetilide load. We started him on 250 mg twice daily. He tolerated that without any proarrhythmia or prolongation of QTc interval. After the fifth dose of dofetilide thepatient underwent cardioversion which was successful. Post cardioversion QTc interval was less [id number] ms. The patient will be kept till later in the afternoon will repeat his EKG if QTc remained acceptable he can be discharged in a stable condition. Patient stayed overnight post Cardioversion due to prolonged QTC. Dose of Tikosyn decreased and IV Magnesium 2 grams was given. At discharge QTC 493 and Tikosyn dose was 125 mcg twice daily and will repeat EKG in office the week of 12/15/2024 documented in this encounter Plan of Treatment Upcoming Encounters Date Type Department Care Team (Late st Contact Info) Description 12/22/2024 11:30 AM EDT Office Visit [address] [place] [address] Daisy Mora MD 7[address] [facility] 2[address] [place] [address] 01/12/2025 1:00 PM EDT Office Visit [facility] [address] [place] [address] [place] [address] [place], [place] [id number] documented as of this encounter Procedures Procedure Name Priority Date/Time Associated Diagnosis Comments ECG 12-LEAD Routine 12/15/2024 2:38 PM EDT History of cardioversion Abnormal electrocardiogram (ECG) (EKG) Persistent atrial fibrillation (Multi) documented in this encounter Results * ECG 12 Lead (12/15/2024 2:38 PM EDT) Narrative [facility] - 12/16/2024 1:11 PM EDT Normal sinus rhythm with mildly prolonged QTc interval at 495 ms us Daisy Mora MD ECG ORDERABLES Final Resu lt CPA documented in this encounter Visit Diagnoses Diagnosis Persistent atrial fibrillation (Multi)- Primary Atrial fibrillation History of cardioversion Abnormal electrocardiogram (ECG) (EKG) documented in this encounter Additional Health Concerns Assessment Noted Time A fall risk assessment has been complete d for the patient 12/19/2023 9:52 AM EDT documented as of this encounter Care Teams Hypercil Core Transformer Assembler Relationship Specialty Start Date End Date Coleman Lu[place] [address] PCP - General Internal Medicine 05/07/24 documented as of this encounter
--- OUTSIDE RECORDS SUMMARY | 2024-12-17 14:13 | XMS_ITS | Encounter Summary ---
Author Organization [facility] Address [facility] [place]-[id number] [address] [place] [address] Care Team Providers Care Telecom Assistant Name Role Phone Coleman Luz DO Primary Care Provider [phone] Encounter Details Date Type Department Care Team (Late st Contact Info) Description 02/23/2021 Orders Only [facility] [address] [place] [id number] External, Scanning Provider Social History Tobacco Use [...] have Coronavirus / COVID-19? No / Unsure 02/23/2021 9:51 AM EST documented as of this encounter Plan of Treatment Not on file documented as of this encounter Procedures Procedure Name Priority Date/Time Associated Diagnosis Comments TSH Routine 05/03/2020 documented in this encounter Results * TSH (05/03/2020) us Scanning Provider External LAB BLOOD ORDERABLES Final Result MANUALLY TRANSCRIBED RESULTS documented in this encounter Visit Diagnoses Not on filedocumented in this encounter Care Teams Telecom Assistant Relationship Specialty Start Date End Date Coleman Luz DO [address] [id number] PCP - General 01/08/18 documented as of this encounter
--- OUTSIDE RECORDS SUMMARY | 2024-12-17 14:13 | XMS_ITS | Encounter Summary ---
Author Organization [facility] Address [address] [place] [address] Phone Care Team Providers Care Route Cdl Driver Name Role Phone Coleman Luz DO Primary Care Provider [phone] Encounter Details Date Type Department Care Team (Late st Contact Info) Description 08/11/2024 Scanned Document [facility] [address] [place] [phone] Scanning, Generic Provider Social History Tobacco Use [...] Description 12/22/2024 11:30 AM EDT Office Visit [place] [address] [place] [address] Daisy Mora MD [address] [place] [address] 01/12/2025 1:00 PM EDT Office Visit [facility] [address] [place] [address] [place] [address] [place] [address] Scheduled Orders Name Type Priority Associated Diagnoses Orde r Schedule Ultrasound- OnBase Scan Imaging O rdered: 08/11/2024 documented as of this encounter Procedures Procedure Name Priority Date/Time Associated Diagnosis Comments OUTSIDE IMAGING SCAN 08/11/2024 ECHOCARDIOGRAM 08/11/2024 documented in this encounter Results * Echocardiogram (08/11/2024) Narrative 08/11/2024 Ordered by an unspecified provider. us Generic Provider Scanning CV ECHO PROCEDURES Fin al Result * OUTSIDE IMAGING SCAN (08/11/2024) Anatomical Region Laterality Modality Other Narrative 08/11/2024 Ordered by an unspecified provider. us Generic Provider Scanning OUTSIDE SCAN Final Result documented in this encounter Visit Diagnoses Not on filedocumented in this encounter Additional Health Concerns Assessment Noted Time A fall risk assessment has been complete d for the patient 12/19/2023 9:52 AM EDT documented as of this encounter Care Teams Route Cdl Driver Relationship Specialty Start Date End Date Coleman Luz DO [address] [place] [address] PCP - General Internal Medicine 05/07/24 documented as of this encounter
--- OUTSIDE RECORDS SUMMARY | 2024-12-17 14:13 | XMS_ITS | Encounter Summary ---
Author Organization [facility] Address [address] [place] [address] Phone Care Team Providers Care Aircraft Quality Control Inspector Name Role Phone Coleman Luz DO Primary Care Provider [phone] Encounter Details Date Type Department Care Team (Late st Contact Info) Description 09/29/2024 Scanned Document [facility] [address] [place] [phone] Scanning, Generic Provider Social History Tobacco Use [...] Description 12/22/2024 11:30 AM EDT Office Visit [place] [address] [place] [address] Daisy Mora MD [address] [place] [address] 01/12/2025 1:00 PM EDT Office Visit [facility] [address] [place] [address] [place] [address] [address] [place], [place] [phone] documented as of this encounter Visit Diagnoses Not on filedocumented in this encounter Additional Health Concerns Assessment Noted Time A fall risk assessment has been complete d for the patient 12/19/2023 9:52 AM EDT documented as of this encounter Care Teams Aircraft Quality Control Inspector Relationship Specialty Start Date End Date Coleman Luz DO [address] [place] [address] PCP - General Internal Medicine 05/07/24 documented as of this encounter
--- OUTSIDE RECORDS SUMMARY | 2024-12-17 14:13 | XMS_ITS | Encounter Summary ---
Author Organization [facility] Address [address] [place] [address] Phone Care Team Providers Care Bullet Maker Name Role Phone Sukh Coleman Jackie LIPSCOMB Primary Care Provider [phone] Coleman Luz DO Primary Care Provider Encounter Details Date Type Department Care Team (Late st Contact Info) Description 08/02/2023 Scanned Document [facility] [address] [place] [phone] Scanning, Generic Provider Social History Tobacco Use [...] suspected to have Coronavirus/COVID-19? No / Unsure 07/27/2023 10:44 AM EDT documented as of this encounter Plan of Treatment Upcoming Encounters Date Type Department Care Team (Late st Contact Info) Description 12/22/2024 11:30 AM EDT Office Visit [place] [address] [place] [address] Daisy Mora MD [address] [facility] [address] [place] [address] 01/12/2025 1:00 PM EDT Office Visit [facility] [address] [place] [address] [place] [address] [place], [place] [phone] documented as of this encounter Visit Diagnoses Not on filedocumented in this encounter Care Teams Bullet Maker Relationship Specialty Start Date End Date Coleman Luz DO PCP - General Internal Medicine 07/12/23 05/06/24 Coleman Luz DO [address] [place] [address] PCP - General Internal Medicine 05/07/24 documented as of this encounter
--- OUTSIDE RECORDS SUMMARY | 2024-12-17 14:13 | XMS_ITS | Encounter Summary ---
Author Organization [facility] Address [address] [place] [address] Phone Care Team Providers Care Adjunct Lecturer Name Role Phone Sukh Coleman Jackie LIPSCOMB Primary Care Provider [phone] Coleman Luz DO Primary Care Provider [phone] Encounter Details Date Type Department Care Team (Late st Contact Info) Description 07/06/2023 Scanned Document [facility] [address] [place] [phone] Scanning, Generic Provider Social History Tobacco Use Types Packs/Day Years Used Date Smoking Tobacco: Never Assessed Sex and Gender Information Value Date Recorded Sex Assigned at Not on file Legal Sex Male 9:17 AM EDT Gender Identity Not on file Sexual Orientation Not on file documented as of this encounter Plan of Treatment Upcoming Encounters Date Type Department Care Team (Late st Contact Info) Description 12/22/2024 11:30 AM EDT Office Visit [place] [address] [place] [address] Daisy Mora MD [address] [facility] [address] [place] [address] 01/12/2025 1:00 PM EDT Office Visit [facility] [address] [place] [address] [place] [address] [place] [address] documented as of this encounter Visit Diagnoses Not on filedocumented in this encounter Care Teams Adjunct Lecturer Relationship Specialty Start Date End Date Coleman Luz DO PCP - General Internal Medicine 07/12/23 05/06/24 Coleman [facility] [place] [address] PCP - General Internal Medicine 05/07/24 documented as of this encounter
--- OUTSIDE RECORDS SUMMARY | 2024-12-17 14:13 | XMS_ITS | Encounter Summary ---
Author Organization [facility] Address [id number] [address] [place] [address] Care Team Providers Care Stone Derrickman And Rigger Name Role Phone Coleman Luz DO Primary Care Provider [phone] Reason for Visit * Reason Comments Med Refill Encounter Details Date Type Department Care Team (Late st Contact Info) Description 10/02/2024 Refill [facility] [address] [place] [address] Geoffrey Carrero, [employer] [address] [place] [address] Med Refill Social History Tobacco Use Types Packs/Day Years [...] encounter Miscellaneous Notes * Telephone Encounter - Gisell Cervantes RN - 10/02/2024 12:27 AM EDT Last seen MAY 2023. Needs appt. documented in this encounter Plan of Treatment Not on file documented as of this encounter Visit Diagnoses Not on filedocumented in this encounter Care Teams Stone Derrickman And Rigger Relationship Specialty Start Date End Date Coleman Luz DO [address] [place] [address] PCP - General 01/08/18 documented as of this encounter
--- OUTSIDE RECORDS SUMMARY | 2024-12-17 14:13 | XMS_ITS | Encounter Summary ---
Author Organization [facility] Address [address] [place] [address] Phone Care Team Providers Care Margarine Churn Operator Name Role Phone Coleman Luz DO Primary Care Provider [phone] Encounter Details Date Type Department Care Team (Late st Contact Info) Description 12/09/2024 Scanned Document [facility] [address] [place] [address] Scanning, Generic Provider Social History Tobacco Use [...] Description 12/22/2024 11:30 AM EDT Office Visit [place] [address] [place] [address] Daisy Mora MD [address] [place] [address] 01/12/2025 1:00 PM EDT Office Visit [facility] [address] [place] [address] [place] [address] [place], [place] [phone] documented as of this encounter Visit Diagnoses Not on filedocumented in this encounter Additional Health Concerns Assessment Noted Time A fall risk assessment has been complete d for the patient 12/19/2023 9:52 AM EDT documented as of this encounter Care Teams Margarine Churn Operator Relationship Specialty Start Date End Date Coleman Luz DO [address] [place] [address] PCP - General Internal Medicine 05/07/24 documented as of this encounter
--- OUTSIDE RECORDS SUMMARY | 2024-12-17 14:13 | XMS_ITS | Encounter Summary ---
Author Organization [facility] Address [address] [place] [address] Phone Care Team Providers Care Structures Mechanic Name Role Phone Coleman Luz DO Primary Care Provider [phone] Encounter Details Date Type Department Care Team (Late st Contact Info) Description 10/01/2024 Scanned Document [facility] [address] [place] [phone] Scanning, Generic Provider Social History Tobacco Use [...] Description 12/22/2024 11:30 AM EDT Office Visit [place] [address] [place] [address] Daisy Mora MD [address] [place] [address] 01/12/2025 1:00 PM EDT Office Visit [facility] [address] [place] [address] [place] [address] [address] [place], [place] [phone] documented as of this encounter Visit Diagnoses Not on filedocumented in this encounter Additional Health Concerns Assessment Noted Time A fall risk assessment has been complete d for the patient 12/19/2023 9:52 AM EDT documented as of this encounter Care Teams Structures Mechanic Relationship Specialty Start Date End Date Coleman Luz DO [address] [place] [address] PCP - General Internal Medicine 05/07/24 documented as of this encounter
--- OUTSIDE RECORDS SUMMARY | 2024-12-17 14:48 | XMS_ITS | CCD ---
Author Organization [facility] Care Team Providers Care Retirement Specialist Name Role Phone Pcp, No Primary Care Provider UnavailVitaily Santoyo DO Primary Care Provider Sarai Mendez II Unavailable [phone] Jonathan Samano Unavailable Melinda Verduzco Unavailable DO Vitaliy Brower Primary Care Provider MD Sarai Mendez II Attending Provider [phone] DO Vitaliy Brower Attending Provider DO Vitaliy Brower Primary Care Provider DO Vitaliy Brower Attending Provider MD Chio Nichole Attending Provider Chio Nichole Unavailable DO Vitaliy Brower Primary Care Provider MD Jonathan Samano Attending Provider DO Vitaliy Brower Primary Care Provider STEPHEN Guzman Emergency Provider Vitaliy Brower Unavailable DO Vitaliy Brower Primary Care Provider MD Jonathan Samano Attending Provider [phone] STEPHEN Guzman Emergency Provider RASHAD Verduzco Attending Provider [phone] VITALIY BROWER Attending Unavailable INOCENTE, DR CEE Primary Care Unavailable INOCENTE, DR CEE Admitting Unavailable INOCENTE, DR CEE Primary Care Unavailable MISC, DR JERNIGAN Consulting Unavailable BALL, DR CEE Admitting Unavailable BALL, [...] Attending Provider MD Jonathan Samano Attending Provider [phone] Ball, DO Vitaliy Primary Care Provider MD Sarai Georges Attending Provider LOWELL Holbrook Emergency Provider Ball, DO Vitaliy Primary Care Provider MD Sarai Mendez II Attending Provider Melinda Verduzco CNP Unavailable Inocente DO, Vitaliy E Primary Care Provider Ball, DO Vitaliy Primary Care Provider MD Sarai Mendez II Attending Provider [phone] Ball, DO Vitaliy Primary Care Provider MD Sarai Mendez II Attending Provider [phone] Sukhjinder Montesinos Unavailable Inocente, DO Vitaliy Primary Care Provider MD Sarai Mendez II Attending Provider RASHAD Verduzco Attending Provider CHHAYA WHATLEY Referring Unavailable BALL, VITALIY E Primary Care Unavailable BALL, VITALIY E Primary Care Unavailable DAVID DWYER Attending Unavailable THERESA PRAKASH Attending UnavailTHERESA Payne Referring Unavailabl e BALL, VITALIY E Primary Care Unavailable SARAI VELASCO Attending Unavailable BALL, VITALIY E Referring Unavailable BALL, VITALIY E Primary Care Unavailable Ball, DO Vitaliy Primary Care Provider MD Sarai Mendez II Attending Provider [phone] RASHAD Verduzco Attending Provider PROVIDER, UNKNOWN Referring Unavailable VITALIY BROWER E Primary Care Unavailable Ball DO, Vitaliy E Primary Care Provider MD Antonio Steele Attending Provider MD Antonio Steele Referring Provider Inocente LIPSCOMB, Vitaliy E Primary Care Provider Ball, DO Vitaliy Primary Care Provider MD Erin Suresh Emergency Provider MD Elliott Talley Admit Provider MD Elliott Talley Attending Provider MD Sally lAex Attending Provider Inocente LIPSCOMB Vitaliy E Primary Care Provider SANTOS CABRERA Attending Unavailable Ball, Vitaliy Primary Care Provider Luba MITCHELL.MICHAEL Melinda L Unavailable Ball, DO Cee Primary Care Provider MD Mehrdad Mcmanus Attending Provider [phone] MD Bird Kowalski Attending Provider DO Vitaliy Brower Primary Care Provider MD Mehrdad Mcmanus Attending Provider [phone] MD Bird Kowalski Attending Provider Ball Vitaliy LIPSCOMB Primary Care Provider Mehrdad Mcmanus MD Attending Provider [phone] Bird Kowalski MD Attending Provider Ball DO Vitaliy E Primary Care Provider Ball Vitaliy LIPSCOMB Primary Care Provider Bird Kowalski MD Attending Provider [phone] Ball DO Vitaliy E Primary Care Provider Vitaliy Brower DO Primary Care Provider Bird Kowalski MD Attending Provider BIRD KOWALSKI Admitting Unavailable FILBIRD PRAJAPATI Attending Unavailable INOCENTE, VITALIY E Primary Care Unavailable BIRD KOWALSKI Admitting Unavailable FILBIRD PRAJAPATI Attending Unavailable INOCENTE, VITALIY E Primary Care Unavailable FILBIRD PRAJAPATI Referring Unavailable INOCENTE, VITALIY E Primary Care Unavailable BIRD KOWALSKI Admitting Unavailable BIRD KOWALSKI Attending Unavailable Cosmo Guzman APRN Emergency Provider Chio Nichole MD Attending Provider Sarai Mendez MD Attending Provider Winnie Grande DO Emergency Provider Lydia Connelly MD Admit Provider Lydia Connelly MD Attending Provider Paul SINGLETARY, Mary Ann Other Provider Unavailable Kathy Valle DO Other Provider Lala Arce MD Other Provider Nehemiah Mcknight MD Other Provider [phone] Antonio Steele MD Other Provider [phone] Dutch Posadas MD Other Provider Geno Corona APRN Other Provider Tami Steele MD Other Provider Lul DOHERTY, Arnaldo Herrera Other Provider Munir Foote MD Other Provider Jose Luis [facility] Other Provider [phone] BIRD KOWALSKI Attending Unavailable ANTONIO STEELE Referring Unavailable INOCENTE IVTALIY E Primary Care Unavailable BIRD KOWALSKI Referring Unavailable INOCENTE, VITALIY E Primary Care Unavailable Luba MITCHELL.MICHAEL, Melinda Blake Unavailable Vitaliy Brower DO Primary Care Provider [phone] Antonio Steele MD Attending Provider HELADIO PINEDA Attending Unavailable BALL, VITALIY E Primary Care Unavailable HELADIO PINEDA Attending Unavailable BALL, VITALIY E Primary Care Unavailable HELADIO PINEDA Referring Unavailable BALL, VITALIY E Primary Care Unavailable HELADIO PINEDA Attending Unavailable BALL, VITALIY E Primary Care Unavailable Ball DO, Vitaliy Primary Care Provider Ball DO Vitaliy Attending Provider [phone] Sarai Mendez MD Attending Provider Marcela Ortiz CMA Attending Provider Unavaila jaime Connelly MD, Lydia Other Provider Ada Woodruff MD Attending Provider Fang Zhu MD Attending Provider Salinas Ascencio DO Admit Provider Tomy Cabello MD Attending Provider Radha Medina MD Emergency Provider Yaakov , Yazid Admit Provider Yaakov LIPSCOMB Yazid Attending Provider Cosmo Guzman APRN Emergency Provider Inocente LIPSCOMB, Vitaliy Primary Care Provider Antonio Steele MD Other Provider Vitaliy Brower DO Attending Provider Sarai Mendez MD Attending Provider Antonio Steele MD Admit Provider Antonio Steele MD Attending Provider Bird Kowalski Admitting Unavailable Bird Kowalski Attending Unavailable Ball, Vitaliy Primary Care Unavailable Asaad, Imad Admitting Unavailable Asaad, Imad Attending Unavailable Ball, Vitaliy Primary Care Unavailable Cosmo Guzman Admitting Unavailable Ball, Vitaliy Primary Care Unavailable Cosmo Guzman Attending Unavailable Ball, Vitaliy Primary Care Unavailable Sarai Mendez II Attending Unavailabl e Sarai Mendez II Admitting Unavailabl e Ball, Vitaliy Primary Care Unavailable Antonio Steele Attending Unavailable Trabouleliezeri, Mourhaf Admitting Unavailable Ball, Vitaliy Primary Care Unavailable Andrea IISarai Attending Unavailabl e Andrea II, Sarai Antunez Admitting Unavailabl e Ball, Vitaliy Primary Care Unavailable Chio Nichole Attending Unavailable Chio Nichole Admitting Unavailable Ball, Vitaliy Primary Care Unavailable Trabouleliezeri, Mourhaf Attending Unavailable Traboulssi, Mourhaf Admitting Unavailable Tomy Cabello Attending Unavailable Mischler, Mary Ann Consulting Unavailable Ball, Vitaliy Primary Care Unavailable Salinas Ascencio Admitting Unavailabl e Mischler, Mary Ann Consulting Unavailable Kathy Valle Consulting Unavailable Yazmin, Reeves Consulting Unavailable Nehemiah Mcknight Consulting Unavail able Trabouleliezeri, Mourhaf Consulting Unavailable Dutch Posadas Consulting UnavailGeno Schofield Consulting Unavailable Cedric, Tami Consulting Unavailable Lul, Arnaldo Najeeb Consulting Unavailab ron Foote, Tardenisse Consulting Unavailable Nicolle Amaya Consulting Unavailable Traboulssi, Mourhaf Consulting Unavailable Yaakov, Yazid Attending Unavailable Yaakov, Yazid Admitting Unavailable Ball, Vitaliy Primary Care Unavailable Mischler, Mary Ann Consulting Unavailable GodwinSalvador seymouramad Attending Unavailable GodwinSalvador seymouramad Admitting Unavailable Ball, Vitaliy Primary Care Unavailable Andrewer, Mary Ann Consulting Unavailable Kathy Valle Consulting Unavailable Arce, Reeves Consulting Unavailable Nehemiah Mcknight Consulting Unavail able Trabouleliezeri, Mourhaf Consulting Unavailable Dutch Posadas Consulting Unavailab Geno Nevarez Consulting Unavailable Steele, Tami Consulting Unavailable Lul, Arnaldo Najeeb Consulting Unavailab ron Foote, Tarek Consulting Unavailable Nicolle Amaya Consulting Unavailable Bird Kowalski Admitting Unavailable Bird Kowalski Attending Unavailable Ball, Vitaliy Primary Care Unavailable Jonathan Samano MD Attending Provider [phone] RONALD STEELEF Attending Unavailable TRABOULSSI, MOURHAF Referring Unavailable BALL, VITALIY E Primary Care Unavailable TRABOULSSI, MOURHAF Referring Unavailable BALL, VITALIY E Primary Care Unavailable TRABOULELIEZERI, MOURHAF Attending Unavailable BALL, VITALIY E Primary Care Unavailable TRABOULSSI, MOURHAF Attending Unavailable TRABOULSSI, MOURHAF Referring Unavailable VITALIY BROWER Primary Care Unavailable Allergies Allergy Classification Reported Allergen(s) Allergy Type Date of Onset Reaction(s) Facility (20 sources) Acetaminophen / oxyCODONE Drug Allergy Unknown [facility] Other (20 sources) atorvastatin Drug Allergy 05-07-19 24 Unknown, Unknown Reaction [facility] (20 sources) predniSONE; Translations: [PREDNISONE] Drug Allergy 01-27-20 23 Other, Headache [facility] (20 sources) Simvastatin Drug Allergy 01-02-20 [address] [facility] Other (1 source) patient allergy list reviewed by nurse or physicia Propensity to adverse reactions 02-18-20 13 Comment:Done [facility] Other (3 sources) Acetaminophen Drug Allergy 05-07-19 24 Unknown Reaction [facility] (3 sources) oxyCODONE Drug Allergy 05-07-19 24 Unknown Reaction [facility] Medications Current Medications Medication Drug Class(es) Dates Sig (Normalized) Sig (Original) 0.5 ML semaglutide 0.5 MG/ML Auto-Injector [Wegovy] (15 sources) Start: 10-03-2022 Start: 10-03-2022 inject 0.5 mL by sub cutaneous injection every week Wegovy 0.25 MG/0.5ML 0.5 mL Subcutaneous weekly for 30 days Sep, Active Acetaminophen (20 sources) Start: 01-29-2024 [facility] needed acetaminophen (Tylenol) tablet 650 mg Start: 01-31-2023 take 2 tablets by mo [facility] every eight hours for pain Acetaminophen 500 MG 2 tablets for pain Orally every 8 hrs for 30 days Med to Bed Upon Discharge DOS: 02/13/2023 Jan, Active Start: 06-17-2021 take 2 tablets by mo [facility] every eight hours for pain Acetaminophen 500 [...] tablet (20 sources) Xanthine Oxidase Inhibitor Start: 09-30-2024 take 2 tablets by mouth once daily Start: 07-07-2024 take 2 tablets by mouth once a llopurinol (ZYLOPRIM) 100 mg tablet Indications: Hyperuricemia , Idiopathic chronic gout of multiple sites without tophus Take 2 tablets by mouth every afternoon. 180 tablet 3 07/07/2024 Active Start: 01-03-2024 End: 09-30-2024 take 1 tablet by mouth once daily Allopurinol 100 mg tablet Discontinued 0 .ROUTE .COMPLEX 90 January 03, 2024 2:35pm September 30, 2024 4:44pm TAKE 1 TABLET BY MOUTH EVERY DAY Start: 06-20-2021 End: 07-07-2024 take 1 tablet by mouth once daily in the morning Allopurinol 100 mg tablet Discontinued 100 MG PO Every morning June 20, 2021 12:00am January 03, 2024 2:35pm Comment on above: Take 1 tablet by tobin th every afternoon. apixaban 5 mg oral tablet (20 sources) Factor Xa Inhibitor Start: 11-19-2024 End: 11-19-2025 take 1 tablet by mouth twice daily Start: 08-13-2024 End: 11-19-2024 take 1 tablet by mouth every twelve hours Eliquis 5 mg tablet Take 1 tablet (5 mg) by mouth every 12 hours. 08/13/2024 11/19/2024 Discontinued (Discontinued by another clinician) Start: 08-13-2024 End: 09-29-2024 take 1 tablet by mouth twice daily Apixaban (Eliquis) 5 mg Tablet Discontinued 5 MG PO Twice daily 60 30 August 13, 2024 12:00am September 29, 2024 4:03am Start: 12-19-2023 End: 02-18-2024 take 1 tablet by mouth once daily at bedtime Apixaban (Eliquis) 5 mg tablet Discontinued 0 .ROUTE .COMPLEX 60 December 19, 2023 9:55pm February 18, 2024 12:15pm TAKE 1 TABLET BY MOUTH EVERY MORNING AND BEFORE BEDTIME FOR 30 DAYS Start: 05-18-2023 End: 01-29-2024 take 1 tablet by mouth twice daily Apixaban 5 mg tablet Discontinued 5 MG PO Twice daily June 28, 2023 12:00am December 19, 2023 9:55pm Start: 05-18-2023 End: 09-13-2024 take 1 tablet by mouth once daily at bedtime ELIQUIS 5 mg tab(s) TAKE 1 TABLET BY MOUTH EVERY MORNING AND BEFORE BEDTIME FOR 30 DAYS 06/24/2023 09/13/2024 Discontinued (Course of therapy completed) take 1 [...] take 1 tablet by mouth once daily Start: 01-30-2024 take 81 mg by mouth [...] 2024 3:20pm take 1 tablet by tobin th two times weekly aspirin 81 mg EC tablet Take 1 tablet (81 mg) by mouth 2 times a week. Active Comment on above: Take 81 mg by mouth. atorvastatin 80 mg oral tablet (20 sources) HMG-CoA Reductase Inhibitor Start: 09-29-2024 take 1 tablet by mouth once daily in the evening Start: 09-19-2023 End: 09-29-2024 take 1 tablet by mouth once daily in the evening Atorvastatin 80 mg tablet Discontinued 0 .ROUTE .COMPLEX 90 July 02, 2024 6:52am September 29, 2024 4:03am TAKE 1 TABLET BY MOUTH ONCE EVERY [...] Start: 06-17-2021 take 1 capsule by mo [facility] every twelve hours Cefadroxil 500 MG [...] 09-13-2024 take 1 capsule by mouth once daily Celecoxib 200 mg capsule Discontinued 200 MG PO Daily June 28, 2023 12:00am June 28, 2023 4:15pm Start: 06-17-2021 take 1 capsule by mo [facility] every twelve hours Celecoxib 200 MG 1 capsule with food Orally Twice a day for 30 day(s) MED TO BED UPON DISCHARGE. DOS: 07/04/2021 Jun, Active Comment on above: Take 1 capsule by mo uth every afternoon. cholecalciferol 0.05 mg oral tablet (1 source) Vitamin D Start: take 1 tablet by mouth once Cholecalciferol (Vitamin D3) (D3 Dots) 50 mcg (2,000 unit) tablet Active 50 MCG PO every Sunday and July 12:00am docusate sodium 100 mg oral capsule (1 source) Start: take 100 mg by mouth twice daily [...] stools docusate sodium 50 mg / sennosides, residential 8.6 mg oral tablet (10 sources) Start: 01-31-2023 take 2 tablets by mouth every twenty-four hours Senokot S 8.6-50 MG 2 tablets Orally Once a day for 30 days Med to Bed Upon Discharge DOS: 02/13/2023 Jan, Active Start: 06-17-2021 take 2 tablets by mo ut every twenty-four hours Senokot S 8.6-50 MG 2 tablets Orally Once a day for 30 day(s) MED TO BED UPON DISCHARGE. DOS: 07/04/2021 Jun, Active dofetilide 0.125 mg oral capsule (2 sources) Antiarrhythmic Start: 12-12-2024 take 1 capsule by mouth every twelve hours ergocalciferol 1.25 mg oral capsule (20 sources) [...] Start: 11-22-2022 take 1 capsule by mo [facility] every week as needed Ergocalciferol 1.25 MG (25229 UT) 1 capsule Orally Once a Week for 60 days Nov, Not-Taking/PRN Start: 03-25-2021 take 1 capsule by mo [facility] every week Vitamin D (Ergocalciferol) 1.25 MG (18566 UT) 1 capsule Orally once weekly for 8 weeks Mar, Active Comment on above: (take by mouth with food twice a week, ONE CAPSULE ON SUNDAY AND ONE ON SUNDAY) FOR A TOTAL OF 8 WEEKS. escitalopram 20 mg oral tablet (20 sources) Serotonin Reuptake Inhibitor Start: 12-10-2024 take 1 tablet by mouth once daily Start: 12-09-2024 End: 12-10-2024 take 1 tablet by mouth once daily at bedtime Escitalopram Oxalate 20 mg tablet Discontinued 20 MG PO Daily at bedtime December 09, 2024 12:00am December 10, 2024 8:57pm Start: 12-23-2023 End: 09-29-2024 take 1 tablet by mouth once daily Escitalopram Oxalate 20 mg tablet Discontinued 0 .ROUTE .COMPLEX June 14, 2024 5:03pm September 29, 2024 4:03am TAKE 1 TABLET BY MOUTH EVERY DAY Start: 06-29-2023 End: 12-23-2023 take 1 tablet by mouth once daily Escitalopram Oxalate 20 mg tablet Discontinued 20 MG PO Daily June 29, 2023 10:35am December 23, 2023 5:50pm Start: 06-28-2023 End: 06-29-2023 take 1 tablet [...] needed for cough for 7 days Active 24 hr isosorbide mononitrate 30 mg extended release oral tablet (6 sources) Nitrate Vasodilator Start: 09-29-2024 take 1 tablet by mouth once daily in the morning, then take 1 tablet by mouth every twenty-four hours levothyroxine sodium 0.15 mg oral tablet (20 sources) l-Thyroxine Start: 03-20-2024 take 1 tablet by mouth once daily Start: 06-20-2021 End: 03-20-2024 take 1 tablet by mouth once daily in the morning Levothyroxine (Synthroid) 150 mcg tablet Discontinued 150 MCG PO Every morning June 20, 2021 12:00am March 20, 2024 10:44am Start: 01-29-2017 End: 06-20-2021 take 1 tablet [...] Active magnesium oxide 400 mg oral tablet (20 sources) Start: 09-29-2024 take 1 tablet by mouth once daily Start: 06-13-2023 magnesium oxid e (MAG-OX) 400 mg (241.3 mg magnesium) tablet Take 400 mg by mouth. 06/13/2023 Active Start: 05-02-2023 take 1 tablet by tobin th every twenty-four hours Magnesium Oxide 400 MG 1 tablet as needed Orally Once a day for 30 days Apr, Active Comment on above: Take 400 mg by mouth . methylPREDNISolone 8 mg oral tablet (20 sources) Corticosteroid Start: 10-08-2024 take 4 mg by mouth once daily Start: 10-08-2024 take 1 tablet by tobin th once daily Start: 09-08-2024 End: 09-09-2024 take 1 tablet by mouth twice daily [...] 4 MG PO Twice daily 60 30 March 23, 2024 1:00am March 23, 2024 10:17am Start: 12-15-2023 End: 08-19-2024 take 1 tablet by mouth once daily Methylprednisolone 4 mg tablet Discontinued 4 MG PO Daily August 11, 2024 12:00am August 19, 2024 4:09pm Start: 09-05-2023 End: 12-13-2023 methylPREDNISolone (MEDROL) 4 [...] Start: 07-05-2023 take 2 tablets by mo [facility] once daily methylPREDNISolone (Medrol) 4 mg tablet [...] 2023 2:35pm take 1 tablet by tobin once daily methylPREDNISolone 2 MG 1 tablet w/ food Orally daily for 14 days Active Comment on above: TAKE 1 TABLET BY TOBIN WITH FOOD DAILY TAKE 1 TABLET BY TOBIN WITH FOOD DAILY FOR 14 DAYS take 1 tablet by tobin every day with food Alternate 4mg and 2m g every other day ALTERNATE 1 TABLET A ND 1/2 TABLET BY MOUTH EVERY OTHER DAY 4 TABLET BY MOUTH EV RANDOLPH OTHER DAY 24 hr metoprolol succinate 50 mg extended release oral tablet (20 sources) beta-Adrenergic Nimo Start: 03-20-2024 take 1 tablet by mouth once daily Start: 03-20-2024 take 1 tablet by tobin [...] Tartr ate 25 MG (Prior Auth: Rx Ref#:[id number]) Oral for Active Comment on above: Take [...] BED UPON DISCHARGE. DOS: 07/04/2021 Jun, Active nitroglycerin 0.4 mg sublingual tablet (6 sources) Nitrate Vasodilator Start: 09-29-2024 ondansetron 8 mg oral tablet (12 sources) [...] Start: 06-17-2021 take 1 tablet by tobin every four hours as needed for pain oxyCODONE HCl 5 MG 1 tablet as needed for pain Orally every 4 hrs for 10 days MED TO BED UPON DISCHARGE. DOS: 07/04/2021 Jun, Active pantoprazole 40 mg delayed release oral tablet (20 sources) Proton Pump Inhibitor Start: 07-01-2024 take 1 tablet by mouth once daily Start: 01-30-2024 pantoprazole ( ProtoNix) EC tablet 40 mg Start: 01-31-2023 take 1 tablet by tobin every twenty-four hours Protonix 20 MG 1 [...] mL of Normal Saline. polyethylene glycol 3350 82489 mg powder for oral solution (10 sources) [...] TOBIN TH ONCE A DAY WITH FOOD spironolactone 25 mg oral tablet (6 sources) Aldosterone Antagonist Start: 5 traMADol hydrochloride 50 mg oral tablet (11 sources) Opioid Agonist Start: take 1 tablet by mouth every six [...] Nucleoside Analog DNA Polymerase Inhibitor Start: 12-24-2023 End: 10-02-2024 take 1 tablet by mouth once daily Start: 06-20-2021 End: 12-24-2023 take 1 tablet by mouth once daily in the morning Valacyclovir 500 mg tablet Discontinued 500 MG PO Every morning June 20, 2021 12:00am December 24, 2023 1:30pm Comment on above: Take 1 tablet by tobin th every afternoon. valsartan 40 mg oral tablet (20 sources) Angiotensin 2 Receptor Nimo Start: 11-19-2024 End: 11-19-2025 take 1 tablet by mouth once daily valsartan (Diovan) 40 mg tablet Indications: Cardiomyopathy, ischemic Take 1 tablet (40 mg) by mouth once daily. 90 tablet 3 11/19/2024 11/19/2025 Active Start: 09-29-2024 End: 10-08-2024 take 1 tablet by mouth once daily Valsartan 40 mg Tablet Discontinued 40 MG PO Daily September 29, 2024 12:00am October 08, 2024 2:05pm Start: 09-08-2024 End: 09-09-2024 Valsartan 160 mg Tablet Disc ontinued 80 MG PO Daily September 08, 2024 12:00am September 09, 2024 10:12am Start: 08-13-2024 End: 11-19-2024 take 0.5 tablet by mouth in the morning valsartan (Diovan) 160 mg tablet Take 0.5 tablets (80 mg) by mouth early in the morning.. 08/13/2024 11/19/2024 Discontinued (Discontinued by another clinician) Start: 08-13-2024 End: 09-08-2024 take 1 tablet by mouth once daily Valsartan 160 mg Tablet Discontinued 160 MG PO Daily August 13, 2024 12:00am September 08, 2024 11:58am Completed/Discontinued Medications Medication Drug Class(es) Dates Sig (Normalized) Sig (Original) acetaminophen 325 mg / oxyCODONE hydrochloride 5 mg oral tablet (20 sources) Opioid Agonist Start: 05-22-2022 End: 01-26-2023 take 1 tablet by mouth every eight hours as needed for pain Oxycodone-Acetamin ophen (Percocet) 5-325 mg tablet Discontinued 1 TAB PO Q8H as needed for pain 01 09May 22, 2022 January 26, 2023 11:02am [id number] 200 actuat albuterol 0.09 mg/actuat metered dose [...] puffs by mo ut every 6 hours ALPRAZolam 0.5 mg oral tablet (20 sources) Benzodiazepine Start: 12-13-19 End: 07-02-19 take 1 tablet by mouth once daily [...] by tobin th at bedtime as needed. amoxicillin 500 mg oral capsule (20 sources) Penicillin-class Antibacterial Start: 04-07-2024 End: 08-11-2024 [...] Discontinued 1 TAB PO Every 12 hours 26 01July 30, 2024 12:00am August 11, 2024 2:39pm Start: 09-01-2023 End: 11-19-2023 take 1 tablet by mouth twice daily Amoxicillin-Pot Clavulanate 875-125 mg tablet Discontinued 1 TAB PO Twice daily 14 September 01, 2023 10:30am November 19, 2023 2:23pm atenolol 25 mg oral tablet (1 source) beta-Adrenergic Nimo Start: 10-25-2012 End: 01-05-2023 take 1 tablet by mouth once daily atenolol 25 mg tablet Take 1 tablet by mouth once daily. 0 10/25/2012 01/05/2023 Discontinued (Course of therapy completed) Comment on above: Take 1 tablet by tobin once daily. benzonatate 200 mg oral capsule (17 sources) Non-narcotic Antitussive Start: 05-14-2024 End: 08-01-2024 [...] that apply): Surgical Prophylaxis, Indications: Surgical Prophylaxis clopidogrel 75 mg oral tablet (20 sources) [id number] Platelet Inhibitor Start: 08-13-2024 End: 11-19-2024 take 1 tablet by mouth once daily Clopidogrel 75 mg Tablet Discontinued 75 MG PO Daily 30 August 13, 2024 12:00am September 29, 2024 4:03am Start: 01-30-2024 End: 08-01-2024 Clopidogrel 75 mg tablet Discontinued MG PO February 18, 2024 1:00am August 01, 2024 11:12am End: 03-05-2023 take 1 tablet by mouth once daily clopidogrel (PLAVIX) 75 mg ORAL tablet Take one(1) tablet daily. 0 03/05/2023 Discontinued (Course of therapy completed) Comment on above: Take one(1) tablet d aily. codeine phosphate 2 mg/ml / guaiFENesin 20 mg/ml oral solution (20 sources) Opioid Agonist Start: 03-17-2024 End: 08-01-2024 take 1 mL by mouth every six hours as needed for cough Codeine-Guaifenesin 10-100 mg/5 mL liquid Discontinued 10 ML PO Every 6 hours as needed for cough 200 March 17, 2024 1:00am August 01, 2024 11:12am Start: 03-17-2024 End: 08-01-2024 take 1 mL [...] 0.6 mg oral capsule (20 sources) Start: 10-08-2024 End: 10-08-2024 take 1 capsule by mouth once daily Colchicine 0.6 mg capsule Discontinued 0.6 MG PO Daily October 08, 2024 12:00am October 08, 2024 2:42pm Start: 08-02-2023 End: 2023 take 1 capsule [...] a day as tolerated. May cause diarrhea. dapagliflozin 10 mg oral tablet (6 sources) Sodium-Glucose Cotransporter 2 Inhibitor Start: 10-02-19 End: 10-09-19 take 1 tablet by mouth once daily Dapagliflozin Propanediol 10 mg Tablet Discontinued 10 MG PO Daily October 01, 2024 12:00am October 08, 2024 2:00pm diazePAM 5 mg oral tablet (20 sources) Benzodiazepine Start: 06-28-19 End: 08-02-19 take 1 tablet by mouth once daily Diazepam 5 mg tablet Discontinued 5 MG PO Daily June 28, 2023 12:00am August 02, 2023 9:17am Start: 06-12-2022 Valium 5 MG ta ke 1 tablet 1/2 hour prior to MRI . May repeat if needed. Orally Jun, Active take 1 tablet by [facility] every twenty-four hours diazePAM 5 MG 1 tablet as needed Orally Once a day Active diclofenac sodium 0.01 mg/mg topical gel (10 sources) Nonsteroidal Anti-inflammatory Drug Start: 08-06-2024 End: 09-29-2024 Diclofenac Sodium 1 % gel Discontinued 2 GM TOPICAL .4-5 times a day as needed for knee pain 05 08August 06, 2024 12:00am September 29, 2024 4:03am Start: 08-06-2024 Diclofenac Sod ium 1 % gel Active 2 GM TOPICAL .4-5 times a day as needed for knee pain 05 08August 06, 2024 12:00am doxycycline hyclate 100 mg oral capsule (20 sources) Tetracycline-class Drug Start: 09-12-2024 End: 09-29-2024 take 1 capsule by mouth twice daily Doxycycline Hyclate 100 mg capsule Discontinued 100 MG PO Twice daily September 12, 2024 12:00am September 29, 2024 4:03am Start: 03-17-2024 End: 08-01-2024 take 1 capsule by mouth twice daily Doxycycline Hyclate 100 mg capsule Discontinued 100 MG PO Twice daily May 02, 2024 3:47pm August 01, 2024 11:12am Start: 03-29-2023 take 1 capsule by mo [facility] every twelve hours Doxycycline Hyclate 100 MG 1 capsule Orally Twice a day for 7 days Mar, Active Start: 03-07-2023 take 1 tablet by [place] every twelve hours Doxycycline Hyclate 100 MG 1 tablet Orally Twice a day for 14 days Feb, Active Start: 10-25-2022 take 1 capsule by mo [facility] twice daily Doxycycline Hyclate 100 MG 1 capsule Orally twice daily for 10 days Jan, Active Start: 05-29-2022 take 1 capsule by mo [facility] twice daily Doxycycline Hyclate 100 MG [...] site of bleed hydroCHLOROthiazide 25 mg / spironolactone 25 mg oral tablet (20 sources) Thiazide Diuretic, Aldosterone Antagonist Start: 09-08-2024 End: 10-01-2024 take 1 tablet by mouth once daily Spironolacton-Hyd rochlorothiaz 25-25 mg tablet Discontinued 1 TAB PO Daily September 08, 2024 12:00am October 01, 2024 12:06pm Start: 04-08-2024 take 1 tablet by [place] once daily in the morning spironolacton-hydroCHLOROthiaz (ALDACTAZ SALVATORE) 25-25 mg per tablet TAKE 1 TABLET BY MOUTH EVERY DAY IN THE MORNING 90 tablet 1 04/08/2024 Active Start: 01-02-2023 End: 04-08-2024 take 1 tablet by mouth once daily before mealtime spironolacton-hydrochlorothiaz (Aldactaz salvatore) 25-25 mg tablet Take 1 tablet (25 mg) by mouth once daily in the morning. Take before meals. 01/02/2023 Active Comment on above: Take 1 tablet by [place]bin th every morning. hydroCHLOROthiazide 25 mg / triamterene 37.5 mg oral capsule (20 sources) Potassium-sparin g Diuretic, Thiazide Diuretic Start: 06-21-19 End: 06-28-19 take 1 capsule by mouth once daily in the morning Triamterene-Hydroch lorothiazid 37.5-25 mg capsule Discontinued 1 CAP PO Every morning June 20, 2021 12:00am June 28, 2023 4:16pm take 1 capsule by mouth every tw enty-four hours Comment on above: TAKE 1 CAPSULE BY MO UTH EVERY DAY IN THE MORNING FOR 30 [...] on Sun06/13/24 at 1424, For 1 dose irbesartan 150 mg oral tablet (20 sources) Angiotensin 2 Receptor Nimo Start: 2 End: 4 take 1 tablet [...] day Active meloxicam 15 mg oral tablet (20 sources) Nonsteroidal Anti-inflammatory Drug Start: 08-06-2024 End: 09-29-2024 take 1 tablet by mouth once daily Meloxicam 15 mg tablet Discontinued 15 MG PO daily September 02, 2024 12:00am September 08, 2024 11:58am Start: 11-17-2013 End: 03-05-2023 take 1 tablet by mouth once daily meloxicam 7.5 mg tablet Take 1 tablet by mouth once daily. 30 tablet 1 11/17/2013 03/05/2023 Discontinued (Course of therapy completed) Comment on above: Take 1 tablet by [place]bin th once daily. mupirocin 0.02 mg/mg topical ointment [...] release(DR/EC) Discontinued 40 MG PO Daily 90 July 01, 2024 12:00am July 01, [...] Start: 10-03-2022 take 1 tablet by [place] th once daily as needed Sildenafil Citrate 100 MG 1 tablet as needed Orally Once a day as needed for 30 days Sep, Active Sod Picosulf-Mag Ox-Citric Ac (20 sources) Start: 12-06-2023 End: 12-31-2023 take 1 [...] [Epigastric pain] Onset: 7 11-19-2023 Episodic Acute and unspecified renal failure (13 sources) Acute renal failure syndrome; Translations: [Acute kidney failure, unspecified] Onset: 5 09-30-2024 Episodic Acute bronchitis (20 sources) Acute bronchitis due to other specified organisms; Translations: [Acute bronchitis] Onset: 5 Episodic Acute posthemorrhagic anemia (1 source) Acute posthemorrhagic anemia Episodic Anxiety disorders (20 sources) Generalized anxiety disorder; Translations: [Generalized anxiety disorder] 06-04-2023 Chronic Aortic; peripheral; and visceral artery aneurysms (11 sources) Aortic root dilatation; Translations: [Thoracic aortic ectasia] Onset: 4 02-14-2024 Chronic Blindness and vision defects (1 source) Visual impairment; Translations: [Unspecified visual loss] Chronic Blindness and vision defects (13 sources) Blurring of visual image; Translations: [Other visual disturbances] Onset: 5 09-30-2024 Episodic Cardiac dysrhythmias (20 sources) Persistent atrial fibrillation; Translations: [Other persistent atrial fibrillation] Onset: 4 Resolved: 4 06-28-2023 Chronic Comment on above: d/t medication from covid d/t medication from [employer]Watchman 01/2024 Watchman 01/2024 s/p LAAO procedure - 01/2024,Echo: LVEF 45%, CHARISSA, normal RV size/function - 08/2024,DCCV: 09/2024 Chronic ulcer of skin (1 source) Non-pressure chronic ulcer of unspecified part of unspecified lower leg with unspecified severity Chronic Coagulation and hemorrhagic disorders (20 sources) Purpura of skin co-occurrent and due [...] Meniere's disease; Translations: [Meniere's disease, bilateral] Chronic Congestive heart failure; nonhypertensive (16 sources) Heart failure; Translations: [Heart failure, unspecified] Resolved: 2 10-20-2021 Chronic Coronary atherosclerosis and other heart disease (20 sources) Coronary arteriosclerosis; Translations: [Atherosclerotic heart disease of [place] coronary artery without angina pectoris] Onset: 4 10-29-2013 Chronic Comment on above: CABG x 2014,PCI/ stent (prior to 2014) Coronary atherosclerosis and other heart disease (2 sources) Presence of aortocoronary bypass graft; Translations: [Presence of aortocoronary bypass graft] Onset: 4 Episodic Deficiency and other anemia (3 sources) Anemia [...] Translations: [Nausea] 01-30-2017 Episodic Nonspecific chest pain (20 sources) Chest pain; Translations: [Chest pain, unspecified] Onset: 5 08-11-2024 Episodic Nutritional deficiencies (20 sources) Vitamin D deficiency; Translations: [Vitamin D [...] replacement] Chronic Other aftercare (3 sources) Other 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 supervisor (current) drug therapy; Translations: [OTH ENT SURGEON CURRENT DRUG THERAPY] Onset: 3 Episodic Other aftercare (2 sources) Long-term current use of drug therapy; Translations: [Other nursing home (current) drug therapy] Episodic Other aftercare (20 sources) Long-term current use of systemic steroid; Translations: [halfway (current) use of 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] Onset: 3 01-05-2023 Episodic Other aftercare (8 sources) Long-term current use of anticoagulant; Translations: [halfway (current) use of 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] 07-27-2023 Episodic Other aftercare (3 sources) H/O: high risk medication; Translations: [Other nursing home (current) drug therapy] 06-30-2024 Episodic Other circulatory disease (20 sources) Presence of other cardiac implants and grafts; Translations: [Other specified cardiac device in situ] Onset: 4 01-29-2024 Chronic Other circulatory disease (9 sources) History of cerebrovascular accident without residual deficits; Translations: [Personal history of transient ischemic attack (TIA), and cerebral infarction without residual deficits] Episodic Other circulatory disease (1 source) Orthostatic hypotension Episodic Other circulatory disease (12 sources) Low blood pressure; Translations: [Hypotension, unspecified] 09-30-2024 Episodic Other circulatory disease (1 source) Hypotension, unspecified; Translations: [Hypotension, unspecified] Onset: 5 Episodic Other connective tissue disease (20 sources) [...] joint; Translations: [Total hip replacement Prosthesis] Onset: 5 Chronic Other connective tissue disease (1 source) Presence of left artificial knee joint Chronic Other connective tissue disease (16 sources) History of revision of left total hip arthroplasty; Translations: [Presence of left artificial hip joint] 08-04-2024 Chronic Other connective tissue disease (8 sources) History of total replacement 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 joint; Translations: [Presence of right artificial hip joint] 10-22-2024 Chronic Other connective tissue disease (3 sources) Myalgia, unspecified site; Translations: [MYALGIA UNSPECIFIED SITE] Onset: Episodic Other connective tissue disease (20 sources) [...] system] 06-30-2024 Episodic Other connective tissue disease (9 sources) Other symptoms and signs involving the musculoskeletal system; Translations: [Other musculoskeletal symptoms referable to limbs] Onset: 5 06-30-2024 Episodic Other connective tissue disease (7 sources) Hand pain; Translations: [Pain in left hand] 08-04-2024 Episodic Other connective tissue disease (4 sources) Pain of left hand; Translations: [Pain in left hand] 08-04-2024 Episodic Other connective tissue disease (9 sources) Trochanteric bursitis; Translations: [Trochanteric bursitis, right hip] 10-23-2024 Episodic Other disorders of stomach and duodenum [...] organs] Onset: 3 Chronic Other hematologic conditions (15 sources) Macrocytosis - no anemia; Translations: [Other [...] injuries and conditions due to external causes (14 sources) Contusion; Translations: [Other injury of unspecified body region, initial encounter] 08-01-2024 Episodic Other liver diseases (1 source) Finding of creatine kinase level; Translations: [Abnormal levels of other serum enzymes] 01-05-2023 Episodic Other liver diseases (1 source) Enzyme level - finding; Translations: [Abnormal levels of other serum enzymes] 01-05-2023 Episodic Other lower respiratory disease (20 sources) Cough; Translations: [Cough] 03-17-2024 Episodic Other [...] sources) Chronic pain; Translations: [Other chronic pain] 12-15-2024 Chronic Other nervous system disorders (10 sources) Other chronic pain; Translations: [Other chronic [...] 3 01-05-2023 Chronic Other non-traumatic joint disorders (1 source) Other specific arthropathies, not elsewhere classified, left shoulder; Translations: [Rotator cuff arthropathy of left shoulder] Onset: 3 Chronic Other non-traumatic joint disorders (5 sources) Pain [...] unspecified joint Episodic Other non-traumatic joint disorders (8 sources) Hip pain; Translations: [Pain in right hip] Onset: 3 01-05-2023 Episodic Other non-traumatic joint disorders (1 source) Swollen knee region; Translations: [Effusion, right knee] 09-26-2024 Episodic Other non-traumatic joint disorders (1 source) Effusion, right knee; Translations: [Bilateral knee swelling] Onset: 5 Episodic Other non-traumatic joint disorders (1 source) Effusion, left knee; Translations: [Bilateral knee swelling] Onset: 5 Episodic Other nutritional; endocrine; and metabolic disorders [...] mass index (BMI) 36.0-36.9, adult] Onset: 6 Resolved: 5 07-27-2023 Chronic Other nutritional; endocrine; and metabolic [...] (adult) (pediatric)] 06-28-2023 Chronic Residual codes; unclassified (9 sources) Obstructive sleep apnea (adult) (pediatric); Translations: [Obstructive sleep apnea (adult)(pediatric)] Onset: 5 Chronic Residual codes; unclassified (2 sources) Insomnia; Translations: [Insomnia, unspecified] Episodic Residual codes; unclassified (11 sources) Never smoked tobacco; Translations: [Other specified health status] Onset: 4 10-18-2023 Episodic Residual codes; unclassified (2 sources) Other [...] of left shoulder, initial encounter] 05-22-2022 Episodic Syncope (13 sources) Near syncope; Translations: [Syncope and collapse] Onset: 5 09-30-2024 Episodic Systemic lupus erythematosus and connective tissue [...] [Chronic atrial fibrillation, unspecified] Onset: 4 Unclassified (14 sources) A [facility] screening has identified you as FRAIL or [...] Four Ways to Beat the Frailty Risk [email or web address] 08-12-2024 Unclassified (1 source) Chronic bilateral low back pain without sciatica; Translations: [Chronic bilateral low back pain without sciatica] Onset: Unclassified (20 sources) Post hospital appointment. Please call to reschedule if needed. Unclassified (6 sources) You have been scheduled for a follow up appointment for the following date and time, please call to reschedule if needed. Unclassified (4 sources) EKG - we will call you with appointment Viral infection (2 sources) Molluscum contagiosum infection; Translations: [Molluscum contagiosum] Episodic Past or Other Problems Problem Classification Problem Date Documented Da te Episodic/Chronic Conditions associated with dizziness or vertigo (10 sources) Benign paroxysmal positional vertigo; Translations: [Benign paroxysmal vertigo, left ear] Onset: 08-08-2019 08-08-2019 Episodic Esophageal disorders (6 sources) Esophageal disorders; Translations: [Gastro-esophageal reflux disease with esophagitis, without bleeding] Onset: 01-08-2017 Immunizations and screening for infectious disease (20 [...] than malignant neoplasm] Onset: 01-28-2024 Episodic Other aftercare (1 source) halfway (current) use of 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; Translations: [halfway current use of 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] Onset: 01-05-2023 Episodic Other connective tissue disease (3 sources) [...] Onset: 06-04-2015 Episodic Other connective tissue disease (9 sources) Pain in left hand; Translations: [Pain in limb] Onset: 01-05-2023 08-04-2024 Episodic Other connective tissue disease (1 source) Other specified soft tissue disorders; Translations: [Bilateral hand swelling] Onset: 01-05-2023 Episodic Other gastrointestinal disorders (1 source) Diarrhea; Translations: [Diarrhea] Onset: 03-15-2017 Episodic Other male genital disorders (2 sources) Hemospermia; Translations: [Hematospermia] Onset: 07-10-2016 Episodic Other non-traumatic joint disorders (19 sources) Swelling of knee joint; Translations: [Effusion, unspecified knee] Onset: 06-01-2009 Episodic Other non-traumatic joint disorders (4 sources) Pain in left hip; Translations: [Left hip pain M25.552] Onset: 01-05-2021 Resolved: 02-22-2021 Episodic Other non-traumatic joint disorders (4 sources) Shoulder joint pain; Translations: [Pain in right shoulder] Onset: 06-04-2015 Episodic Other non-traumatic joint disorders (13 sources) Pain in right hip joint; Translations: [Pain in right hip] Onset: 01-05-2023 01-05-2023 Episodic Other non-traumatic joint disorders (19 sources) Pain in right knee; Translations: [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, lower leg] Onset: 03-05-2023 03-05-2023 Episodic Other non-traumatic joint disorders (2 sources) Pain in left knee; Translations: [Chronic pain of both knees] Onset: 03-05-2023 Episodic Unclassified (6 sources) Onset: 12-19-2023 12-19-2023 Viral infection (1 source) COVID-19 Results Test Name Value Interpretation Reference Range Facility ECG 12 lead ECGon 12-12-2024 ECG 12 lead ECG [facility] [place] [address] Electrocardiograph Report Signed Patient: Esme Steven MR#: [id number] : 1960 Acct:[id number] Age/Sex: 63 / M ADM Date: 12/09/24 Loc: Room: [address] [place] [address] Type: DIS IN Attending Dr: Antonio Steele MD Ordering Provider: Antonio Steele MD Date of Service: 12/12/2408/31/499 ECG/ECG 12 lead ECG: QTC- Tikosyn Copies to: Test Reason : Blood Pressure : 121/77 mmHG Vent. Rate : 64 BPM Atrial Rate : 64 BPM P-R Int : 202 ms QRS Dur : 114 ms QT Int : 478 ms P-R-T Axes : 38 107 25 degrees QTcB Int : 493 ms Normal sinus rhythm Rightward axis Prolonged QT Abnormal ECG When compared with ECG of 11-Dec-2024 14:02, (Unconfirmed) QRS axis shifted right T wave inversion less evident in Lateral leads Confirmed by Will Koch ([id number]) on 12/12/2024 5:41:54 PM Referred By: Electronically Signed By: Will Koch Transcribed By: MUS Signed By Will Koch MD 12/12/24 4493 Normal [facility] INR in Platelet poor plasma by Coagulation assayOrdered By: Antonio Steele on 12-12-2024 INR Coag (PPP) [Relative time] 1.3 {INR} [facility] Comment on above: INR Therapeutic Rang e [...] heart valves: 3 - 4.5 PERFORMED BY: [facility] [address] [place] [id number] PATHOLOGIST COMMUNITY SERVICE WORKER MICHELE ALMARAZ M.D. Performed By: #### P T ####[place] [id number] [place] [id number] [facility] Prothrombin time (PT)Ordered By: Antonio Steele on 12-12-2024 PT Coag (PPP) [Time] 14.6 s High 9.0-12.9 [facility] Comment on above: A hematocrit value g reater than 55% may lead to inaccurate results in coagulation testing. Patients having hematocrit values >55% require a special collection tube for coagulation studies. Please contact the laboratory at [phone] for redraw instructions. Result Comment: A he matocrit value greater than 55% may lead to inaccurate results in coagulation testing. Patients having hematocrit values >55% require a special collection tube for coagulation studies. Please contact the laboratory at [phone] for redraw instructions. Performed By: #### P T ####[place] [id number] [place] [address] [facility] Carbon dioxide, total [Moles /volume] in Serum or PlasmaOrdered By: Antonio Steele on 12-11-2024 CO2 [Moles/Vol] 29.5 mmol/L 21.0-31.0 [facility] Comment on above: Performed By: #### L YTES ####[place] [id number] [facility] Chloride [Moles/volume] in S ursula or PlasmaOrdered By: Antonio Steele on 12-11-2024 Chloride [Moles/Vol] 102 mmol/L 98-107 [facility] Comment on above: Performed By: #### L INÉS ####[facility] [id number] [place] [id number] [facility] ECG 12 lead ECGon 12-11-2024 ECG 12 lead ECG [facility] [place] [address] Electrocardiograph Report Signed Patient: Esme Steven MR#: [id number] : 1960 Acct:[id number] Age/Sex: 63 / M ADM Date: 12/09/24 Loc: Room: [address] [place] [address] Type: DIS IN Attending Dr: Antonio Steele MD Ordering Provider: Antonio Steele MD Date of Service: 12/11/2408/01/1399 ECG/ECG 12 lead ECG: post cardioversion Copies to: Test Reason : Blood Pressure : 124/80 mmHG Vent. Rate : 73 BPM Atrial Rate : 73 BPM P-R Int : 202 ms QRS Dur : 112 ms QT Int : 462 ms P-R-T Axes : 56 19 107 degrees QTcB Int : 508 ms Normal sinus rhythm Nonspecific T wave abnormality Prolonged QT Abnormal ECG When compared with ECG of 11-Dec-2024 09:36, (Unconfirmed) premature ventricular complexes are no longer present Nonspecific T wave abnormality no longer evident in Inferior leads Confirmed by Will Koch ([id number]) on 12/12/2024 5:41:52 PM Referred By: Electronically Signed By: Will Koch Transcribed By: MUS Signed By Will Koch MD 12/12/24 1741 Normal [facility] ECG 12 lead ECG [facility] [place] [address] Electrocardiograph Report Signed Patient: Esme Steven MR#: [id number] : 1960 Acct:[id number] Age/Sex: 63 / M ADM Date: 12/09/24 Loc: Room: [address] [place] [address] Type: ADM IN Attending Dr: Antonio Steele MD Ordering Provider: Antonio Steele MD Date of Service: 12/11/2408/01/499 ECG/ECG 12 lead ECG: rhythm assessment Copies to: Test Reason : Blood Pressure : 141/92 mmHG Vent. Rate : 88 BPM Atrial Rate : 102 BPM P-R Int : * ms QRS Dur : 118 ms QT Int : 402 ms P-R-T Axes : 213 82 -41 degrees QTcB Int : 486 ms Atrial fibrillation Nonspecific intraventricular conduction delay Confirmed by Will Koch ([id number]) on 12/11/2024 9:11:18 PM Referred By: Electronically Signed By: Will Koch Transcribed By: MUS Signed By Will Koch MD 12/11/242110 Normal [facility] Potassium [Moles/volume] in Serum or PlasmaOrdered By: Antonio Steele on 12-11-2024 Potassium [Moles/Vol] 4.2 mmol/L 3.5-5.1 [facility] Comment on above: Performed By: #### L YTES ####[facility] [id number] Prothrombin Time INRon 12-11 INR Coag (PPP) [Relative time] 1.3 {INR} Normal [facility] Comment on above: [...] heart valves: 3 - 4.5 PERFORMED BY: [facility] [address] [place] [address] PATHOLOGIST COMMUNITY SERVICE WORKER MICHELE ALMARAZ M.D. Performed By: #### B MP, PT #### [facility] [address] PT Coag (PPP) [Time] 14.4 s High 9.0-12.9 [facility] Comment on above: Result Comment: A he matocrit value greater than 55% may lead to inaccurate results in coagulation testing. Patients having hematocrit values >55% require a special collection tube for coagulation studies. Please contact the laboratory at [phone] for redraw instructions. Performed By: #### B MP, PT #### [address] Serum or plasma anion gap de terminationOrdered By: Antonio Steele on 12-11-2024 Anion gap [Moles/Vol] 8.7 mmol/L 6.0-15.0 [facility] Comment on above: Result Comment: PERF ORMED BY: [place] [address] PATHOLOGIST COMMUNITY SERVICE WORKER MICHELE ALMARAZ M.D. Performed By: #### L YTES ####[address] Sodium [Moles/volume] in Ser um or PlasmaOrdered By: Antonio Steele on 12-11-2024 Sodium [Moles/Vol] 136 mmol/L 136-145 [facility] Comment on above: Performed By: #### L YTES ####[address] ECG 12 lead ECGon 12-10-2024 ECG 12 lead ECG [facility] [address] [place] [address] [place] [address] Electrocardiograph Report Signed Patient: Esme Steven MR#: [id number] : 1960 Acct:[id number] Age/Sex: 63 / M ADM Date: 12/09/24 Loc: Room: [address] [place] [address] Type: ADM IN Attending Dr: Antonio Steele MD Ordering Provider: Antonio Steele MD Date of Service: 12/10/2407/01/757 ECG/ECG 12 lead ECG: prn ekg Copies to: Test Reason : Blood Pressure : 128/84 mmHG Vent. Rate : 96 BPM Atrial Rate : 258 BPM P-R Int : * ms QRS Dur : 116 ms QT Int : 342 ms P-R-T Axes : * 76 -58 degrees QTcB Int : 432 ms Atrial fibrillation Nonspecific intraventricular conduction delay Confirmed by Will Koch ([id number]) on 12/11/2024 9:10:59 PM Referred By: Electronically Signed By: Will Koch Transcribed By: MUS Signed By Will Koch MD 12/11/242110 Normal [facility] ECG 12 lead ECG [facility] [place] [address] Electrocardiograph Report Signed Patient: Esme Steven MR#: [id number] : 1960 Acct:[id number] Age/Sex: 63 / M ADM Date: 12/09/24 Loc: Room: 4E0853-6 Type: ADM IN Attending Dr: Antonio Steele MD Ordering Provider: Antonio Steele MD Date of Service: 12/10/2407/01/499 ECG/ECG 12 lead ECG: rhythm assessment Copies to: Test Reason : Blood Pressure : 146/84 mmHG Vent. Rate : 90 BPM Atrial Rate : 178 BPM P-R Int : * ms QRS Dur : 114 ms QT Int : 404 ms P-R-T Axes : * 44 206 degrees QTcB Int : 494 ms Atrial fibrillation Nonspecific intraventricular conduction delay Nonspecific ST and T wave abnormality Prolonged QT Abnormal ECG When compared with ECG of 09-Dec-2024 20:50, (Unconfirmed) No significant change was found Confirmed by Will Koch ([id number]) on 12/11/2024 9:10:42 PM Referred By: Electronically Signed By: Will Koch Transcribed By: MUS Signed By Will Koch MD 12/11/242109 Normal [facility] Prothrombin Time INRon 12-10 INR Coag (PPP) [Relative time] 1.2 {INR} Normal [facility] Comment on above: [...] heart valves: 3 - 4.5 PERFORMED BY: [place] [address] PATHOLOGIST COMMUNITY SERVICE WORKER MICHELE ALMARAZ M.D. Performed By: #### B MP, PT #### [address] PT Coag (PPP) [Time] 13.7 s High 9.0-12.9 [facility] Comment on above: Result Comment: A he matocrit value greater than 55% may lead to inaccurate results in coagulation testing. Patients having hematocrit values >55% require a special collection tube for coagulation studies. Please contact the laboratory at [phone] for redraw instructions. Performed By: #### B MP, PT #### [address] Basic Metabolic Panelon 09-0 -2024 Anion gap [Moles/Vol] 8.0 mmol/L Normal 6.0-15.0 [facility] Comment on above: Performed By: #### B MP, PT #### [address] Chloride [Moles/Vol] 105 mmol/L Normal 98-107 [facility] Comment on above: Performed By: #### B MP, PT #### [address] CO2 [Moles/Vol] 27.0 mmol/L Normal 21.0-31.0 [facility] Comment on above: Performed By: #### B MP, PT #### [place] [address] [place] GFR/1.73 sq M.predicted MDRD (S/P/Bld) [Vol rate/Area] mL/min/{1.73_m2} Normal [facility] Comment on above: Performed By: #### B MP, PT #### [place] [address] [place] Potassium [Moles/Vol] 4.0 mmol/L Normal 3.5-5.1 [facility] Comment on above: Performed By: #### B MP, PT #### [facility] [address] Sodium [Moles/Vol] 136 mmol/L Normal 136-145 [facility] Comment on above: Performed By: #### B MP, PT #### [facility] [address] [place] [address] [place] Calcium [Mass/volume] in Ser um or PlasmaOrdered By: Antonio Steele on 12-09-2024 Calcium [Mass/Vol] 8.7 mg/dL 8.6-10.3 [facility] Comment on above: Result Comment: PERF ORMED BY: [place] [address] PATHOLOGIST COMM[employer]ITY SERVICE WORKER MICHELE ALMARAZ M.D. Performed By: #### B MP, PT #### [facility] [address] [place] [address] Creatinine [Mass/volume] in Serum or PlasmaOrdered By: Antonio Steele on 12-09-2024 Creatinine [Mass/Vol] 0.84 mg/dL 0.70-1.30 [facility] Comment on above: Performed By: #### B MP, PT #### [address] ECG 12 lead ECGon 12-09-2024 ECG 12 lead ECG [facility] [place] [address] [place] [address] Electrocardiograph Report Signed Patient: Esme Steven MR#: [id number] : 1960 Acct:[id number] Age/Sex: 63 / M ADM Date: 12/09/24 Loc: Room: [address] [place] [address] Type: ADM IN Attending Dr: Antonio Steele MD Ordering Provider: Antonoi Steele MD Date of Service: 12/09/2406/03/2049 ECG/ECG 12 lead ECG: prn ekg Copies to: Test Reason : Blood Pressure : 134/87 mmHG Vent. Rate : 93 BPM Atrial Rate : 94 BPM P-R Int : * ms QRS Dur : 112 ms QT Int : 386 ms P-R-T Axes : * 49 230 degrees QTcB Int : 479 ms Atrial fibrillation T wave abnormality, consider inferior ischemia Prolonged QT Abnormal ECG When compared with ECG of 09-Dec-2024 09:41, (Unconfirmed) QT has lengthened Confirmed by Will Koch ([id number]) on 12/11/2024 9:10:26 PM Referred By: Electronically Signed By: Will Koch Transcribed By: MUS Signed By Will Koch MD 12/11/242109 Normal [facility] ECG 12 lead ECG [facility] [place] [address] [place] [address] Electrocardiograph Report Signed Patient: Esme Steven MR#: [id number] : 1960 Acct:[id number] Age/Sex: 63 / M ADM Date: 12/09/24 Loc: Room: [address] [place] [address] Type: ADM IN Attending Dr: Antonio Steele MD Ordering Provider: Antonio Steele MD Date of Service: 12/09/2406/03/848 ECG/ECG 12 lead ECG: rhythm assessment Copies to: Test Reason : Blood Pressure : 130/92 mmHG Vent. Rate : 98 BPM Atrial Rate : 127 BPM P-R Int : * ms QRS Dur : 106 ms QT Int : 322 ms P-R-T Axes : * 50 222 degrees QTcB Int : 411 ms Atrial fibrillation Nonspecific T wave abnormality Abnormal ECG When compared with ECG of 30-Sep-2024 14:19, QRS axis shifted right Borderline criteria for Anterior infarct are no longer present Criteria for Inferior infarct are no longer present Nonspecific T wave abnormality now evident in Inferior leads QT has shortened Confirmed by Will Koch ([id number]) on 12/11/2024 9:10:22 PM Referred By: Electronically Signed By: Will Koch Transcribed By: MUS Signed By Will Koch MD 12/11/242109 Normal [facility] Glomerular filtration rate [ Volume Rate/Area] in Serum, Plasma or Blood by CreatinineOrdered By: Antonio Steele on 12-09-2024 Glomerular filtration rate [Volume Rate/Area] in Serum, Plasma or Blood by Creatinine > 60.0 mL/Min [facility] Glucose [Mass/volume] in Ser um or PlasmaOrdered By: Antonio Steele on 12-09-2024 Glucose [Mass/Vol] 190 mg/dL High 70-100 [facility] Comment on above: ADA recommended refe rence rangeRandom Glucose Reference Range is dependent on time and content of last meal. Glucose of more than 200 mg/dL in a nonstressed, ambulatory subject supports the diagnosis of Diabetes Mellitus. Result Comment: [facility] Glucose Reference Range is dependent on time and content of last meal. Glucose of more than 200 mg/dL in a nonstressed, ambulatory subject supports the diagnosis of Diabetes Mellitus. ADA recommended reference range Performed By: #### B MP, PT #### [facility] [address] [place] [address] No Panel InformationOrdered By: Antonio Steele on 12-09-2024 Pharmacy Creatinine Clearance (Chem N/A [facility] Prothrombin Time INRon 12-09 INR Coag (PPP) [Relative time] 1.3 {INR} Normal [facility] Comment on above: [...] heart valves: 3 - 4.5 PERFORMED BY: [place] [address] PATHOLOGIST COMMUNITY SERVICE WORKER MICHELE ALMARAZ M.D. Performed By: #### B MP, PT #### [facility] [address] [place] [address] PT Coag (PPP) [Time] 14.9 s High 9.0-12.9 [facility] Comment on above: Result Comment: A he matocrit value greater than 55% may lead to inaccurate results in coagulation testing. Patients having hematocrit values >55% require a special collection tube for coagulation studies. Please contact the laboratory at [phone] for redraw instructions. Performed By: #### B MP, PT #### [facility] [address] [place] [address] [facility] Urea nitrogen [Mass/volume] in Serum or PlasmaOrdered By: Antonio Steele on 12-09-2024 Urea nitrogen [Mass/Vol] 15 mg/dL 10-31 [facility] Comment on above: Performed By: #### B MP, PT #### [facility] [address] [place] [address] [facility] ECG 12 Leadon 11-19-2024 Atrial fibrillation with controlled rate and nonspecific ST-T changes [facility] Work Phone: X-ray reportOrdered By: Rubio Vazquez on 10-23-2024 Study report [facility] [address] [place] [id number] XRay Report Signed Patient: Esme Steven MR#: [id number] : 1960 Acct:[id number] Age/Sex: 63 / M ADM Date: 5 Loc: [facility] Room: Type: [facility] Attending Dr: Sarai Mendez II, MD Copies to: Sarai Mendez MD~ Ordering Provider: Sarai Mendez MD Date of Service: 10/23/24 XR/XR hip RT min 2V(w/wo pelvis)*: Z96.641 - Presenceof right artificial hip joint XR hip RT min 2V(w/wo pelvis)* 10/23/2024 2:28 PM SIGNS AND SYMPTOMS: Right total hip arthroplasty, follow-up PROTOCOL: Frontal radiograph the pelvis with crosstable lateral view of the right hip COMPARISON: 05/16/2023 FINDINGS: There is total hip arthroplasty hardware bilaterally. There is no fracture or fixation. No hardware complication. Bony ring of the pelvis is intact. XR/XR hip RT min 2V(w/wo pelvis)* IMPRESSION: Uncomplicated total right hip arthroplasty. Impression dictated by: Rubio Vazquez M.D. 10/23/2024 7:56 PM Dictation Location: RADIO-PC-17 Transcribed By: GWEN 10/23/241955 Dictated By: Rubio Vazquez II, MD 10/23/241954 Signed By: 10/23/241955 [facility] Work Phone: XR hip RT min 2V(w/wo pelvis )*on 10-23-2024 XR hip RT min 2V(w/wo pelvis)* [facility] [address] [place] [address] XRay Report Signed Patient: Esme Steven MR#: [id number] : 1960 Acct:[id number] Age/Sex: 63 / M ADM Date: 10/23/24 Loc: [facility] Room: Type: [facility] Attending Dr: Sarai Mendez II, MD Copies to: Sarai Mendez MD Ordering Provider: Sarai Mendez MD Date of Service: 10/23/24 XR/XR hip RT min 2V(w/wo pelvis)*: Z96.641 - Presence of right artificial hip joint XR hip RT min 2V(w/wo pelvis)* 10/23/2024 2:28 PM SIGNS AND SYMPTOMS: Right total hip arthroplasty, follow-up PROTOCOL: Frontal radiograph the pelvis with crosstable lateral view of the right hip COMPARISON: 05/16/2023 FINDINGS: There is total hip arthroplasty hardware bilaterally. There is no fracture or fixation. No hardware complication. Bony ring of the pelvis is intact. XR/XR hip RT min 2V(w/wo pelvis)* IMPRESSION: Uncomplicated total right hip arthroplasty. Impression dictated by: Rubio Vazquez M.D. 10/23/2024 7:56 PM Dictation Location: RADIO-PC-17 Transcribed By: GWEN 10/23/241955 Dictated By: Rubio Vazquez II, MD 10/23/241954 Signed By: 10/23/241955 Normal [facility] Basic Metabolic Panelon 09-08 Creatinine Clr Calc Pharmacy 108.50 Normal [facility] Comment on above: Result Comment: PERF ORMED BY: [facility] [address] [place] [id number] PATHOLOGIST COMM[employer]ITY SERVICE WORKER MICHELE ALMARAZ M.D. Performed By: #### B MP, CBC ####[place] [id number] [facility] GFR/1.73 sq M.predicted MDRD (S/P/Bld) [Vol rate/Area] mL/min/{1.73_m2} Normal [facility] Comment on above: Performed By: #### B MP, CBC ####[place] [id number] [facility] Basophils [#/volume] in Bloo d by Automated countOrdered By: Ada Valentin on 10-01-2024 Basophils (Bld) [#/Vol] 0.1 10*3/uL 0.0-0.2 [facility] Comment on above: Result Comment: PERF ORMED BY: [facility] [address] [place] [place] [id number] PATHOLOGIST COMMUNITY SERVICE WORKER MICHELE ALMARAZ M.D. Performed By: #### B MP, CBC ####[place] [id number] [facility] Basophils/100 leukocytes in Blood by Automated countOrdered By: Ada Valentin on 10-01-2024 Basophils/100 WBC (Bld) 0.5 % . [facility] Comment on above: Performed By: #### B MP, CBC ####[place] [id number] [place] Calcium [Mass/volume] in Ser um or PlasmaOrdered By: Ada Valentin on 10-01-2024 Calcium [Mass/Vol] 8.4 mg/dL Low 8.6-10.3 [facility] Comment on above: Performed By: #### B MP, CBC ####[place] [id number] [facility] Carbon dioxide, total [Moles /volume] in Serum or PlasmaOrdered By: Ada Valentin on 10-01-2024 CO2 [Moles/Vol] 25.4 mmol/L 21.0-31.0 [facility] Comment on above: Performed By: #### B MP, CBC ####[address] Chloride [Moles/volume] in S ursula or PlasmaOrdered By: Ada Valentin on 10-01-2024 Chloride [Moles/Vol] 104 mmol/L 98-107 [facility] Comment on above: Performed By: #### B MP, CBC ####[address] Complete Blood Count Auto Di ffon 10-01-2024 Mean Corpuscular HGB Conc 34.1 g/dL Normal 32.5-35.6 [facility] Comment on above: Performed By: #### B MP, CBC ####[address] NRBC% 0.1 /100{WBC} Normal 0-0.5 [facility] Comment on above: Performed By: #### B MP, CBC ####[address] White Blood Count 13.7 [CFU]/mL High 4.1-10.5 [facility] Comment on above: Performed By: #### B MP, CBC ####[address] Creatinine [Mass/volume] in Serum or PlasmaOrdered By: Ada Valentin on 10-01-2024 Creatinine [Mass/Vol] 0.79 mg/dL Significan t change up 0.70-1.30 [facility] Comment on above: Delta: 1.32 on 09/30 Performed By: #### B MP, CBC ####[address] Eosinophils [#/volume] in Bl ood by Automated countOrdered By: Ada Valentin on 10-01-2024 Eosinophils (Bld) [#/Vol] 0.1 10*3/uL 0.0-0.45 [facility] Comment on above: Performed By: #### B MP, CBC ####[place] [id number] [place] Eosinophils/100 leukocytes i n Blood by Automated countOrdered By: Ada Valentin on 10-01-2024 Eosinophils/100 WBC (Bld) 0.9 % . [facility] Comment on above: Performed By: #### B MP, CBC ####[address] Erythrocyte distribution wid th [Ratio] by Automated countOrdered By: Ada Valentin on 10-01-2024 Erythrocyte distribution width (RBC) [Ratio] 14.4 % 12.0-14.8 [facility] Comment on above: Performed By: #### B MP, CBC ####[address] Erythrocytes [#/volume] in B lood by Automated countOrdered By: Ada Valentin on 10-01-2024 RBC (Bld) [#/Vol] 4.32 10*6/uL 3.90-5.60 [facility] Comment on above: Performed By: #### B MP, CBC ####[address] Glucose [Mass/volume] in Ser um or PlasmaOrdered By: Ada Valentin on 10-01-2024 Glucose [Mass/Vol] 120 mg/dL High 70-100 [facility] Comment on above: ADA recommended refe rence rangeRandom Glucose Reference Range is dependent on time and content of last meal. Glucose of more than 200 mg/dL in a nonstressed, ambulatory subject supports the diagnosis of Diabetes Mellitus. Result Comment: [facility] Glucose Reference Range is dependent on time and content of last meal. Glucose of more than 200 mg/dL in a nonstressed, ambulatory subject supports the diagnosis of Diabetes Mellitus. ADA recommended reference range Performed By: #### B MP, CBC ####[place] [id number] [facility] Hematocrit [Volume Fraction] of Blood by Automated countOrdered By: Ada Valentin on 10-01-2024 Hematocrit (Bld) [Volume fraction] 44.0 % 38.8-50.0 [facility] Comment on above: Performed By: #### B MP, CBC ####[place] [id number] [facility] Hemoglobin [Mass/volume] in BloodOrdered By: Ada Valentin on 10-01-2024 Hemoglobin (Bld) [Mass/Vol] 15.0 g/dL 13.0-17.0 [facility] Comment on above: Performed By: #### B MP, CBC ####[place] [id number] [facility] Lactate [Moles/volume] in Se rum or PlasmaOrdered By: Ada Valentin on 10-01-2024 Lactate [Moles/Vol] 1.1 mmol/L 0.5-1.9 [facility] Comment on above: Lactic Acid referenc e range has been updated to 0.5 1.9 mmol/L and the critical range of 2.0 or greater. Order Comment: Comme nt Add on Result Comment: Lact ic Acid reference range has been updated to 0.5 ? 1.9 mmol/L and the critical range of 2.0 or greater. PERFORMED BY: [facility] [address] [place] [id number] PATHOLOGIST COMMUNITY SERVICE WORKER MICHELE ALMARAZ M.D. Performed By: #### L ACTIC ####[place] [id number] [facility] Leukocytes [#/volume] correc collins for nucleated erythrocytes in Blood by Automated counOrdered By: Ada Valentin on 10-01-2024 WBC corrected for nucl RBC Auto (Bld) [#/Vol] 13.7 10*3/uL High 4.1-10.5 [facility] Leukocytes [#/volume] in Blo od by Automated countOrdered By: Ada Valentin on 10-01-2024 WBC (Bld) [#/Vol] 13.7 10*3/uL High 4.1-10.5 [facility] Comment on above: Performed By: #### B MP, CBC ####[address] Lymphocytes [#/volume] in Bl ood by Automated countOrdered By: Ada Valentin on 10-01-2024 Lymphocytes (Bld) [#/Vol] 2.2 10*3/uL 1.00-4.8 [facility] Comment on above: Performed By: #### B MP, CBC ####[address] Lymphocytes/100 leukocytes i n Blood by Automated countOrdered By: Ada Valentin on 10-01-2024 Lymphocytes/100 WBC (Bld) 16.2 % . [facility] Comment on above: Performed By: #### B MP, CBC ####[address] MCH [Entitic mass] by Automa collins countOrdered By: Ada Valentin on 10-01-2024 MCH (RBC) [Entitic mass] 34.7 pg 27.5-35.2 [facility] Comment on above: Performed By: #### B MP, CBC ####[address] MCHC Auto (RBC) [Mass/Vol]Or dered By: Ada Valentin on 10-01-2024 MCHC (RBC) [Mass/Vol] 34.1 g/dL 32.5-35.6 [facility] MCV [Entitic volume] by Auto mated countOrdered By: Ada Valentin on 10-01-2024 MCV (RBC) [Entitic vol] 101.8 fL High 83.5-101 [facility] Comment on above: Performed By: #### B MP, CBC ####[address] Monocytes [#/volume] in Bloo d by Automated countOrdered By: Ada Valentin on 10-01-2024 Monocytes (Bld) [#/Vol] 1.1 10*3/uL High 0.0-0.8 [facility] Comment on above: Performed By: #### B MP, CBC ####[address] [place] [address] [place] Monocytes/100 leukocytes in Blood by Automated countOrdered By: Ada Valentin on 10-01-2024 Monocytes/100 WBC (Bld) 7.9 % . [facility] Comment on above: Performed By: #### B MP, CBC ####[address] Neutrophils [#/volume] in Bl ood by Automated countOrdered By: Ada Valentin on 10-01-2024 Neutrophils (Bld) [#/Vol] 10.2 10*3/uL High 1.8-7.7 [facility] Comment on above: Performed By: #### B MP, CBC ####[address] Neutrophils/100 leukocytes i n Blood by Automated countOrdered By: Ada Valentin on 10-01-2024 Neutrophils/100 WBC (Bld) 74.5 % . [facility] Comment on above: Performed By: #### B MP, CBC ####[address] No Panel InformationOrdered By: Ada Valentin on 10-01-2024 Estimated GFR (CKD-EPI) > 60.0 mL/Min [facility] Creatinine Clearance (Chem 108.50 [facility] Nucleated erythrocytes [Pres ence] in Blood by Automated countOrdered By: Ada Valentin on 10-01-2024 Nucleated RBC Auto Ql (Bld) 0.1 /100{WBC} 0-0.5 [facility] Platelet mean volume [Entiti c volume] in Blood by Automated countOrdered By: Ada Valentin on 10-01-2024 Platelet mean volume (Bld) [Entitic vol] 9.5 fL 6.6-10.1 [facility] Comment on above: Performed By: #### B MP, CBC ####[address] Platelets [#/volume] in Bloo d by Automated countOrdered By: Ada Valentin on 10-01-2024 Platelets (Bld) [#/Vol] 161 10*3/uL Significant change up 150-450 [facility] Comment on above: Delta: 218 on -1420 Performed By: #### B MP, CBC ####[address] Potassium [Moles/volume] in Serum or PlasmaOrdered By: Ada Valentin on 10-01-2024 Potassium [Moles/Vol] 3.6 mmol/L 3.5-5.1 [facility] Comment on above: Performed By: #### B MP, CBC ####[address] Serum or plasma anion gap de terminationOrdered By: Ada Valentin on 10-01-2024 Anion gap [Moles/Vol] 9.2 mmol/L 6.0-15.0 [facility] Comment on above: Performed By: #### B MP, CBC ####[address] Sodium [Moles/volume] in Ser um or PlasmaOrdered By: Ada Valentin on 10-01-2024 Sodium [Moles/Vol] 135 mmol/L Low 136-145 [facility] Comment on above: Performed By: #### B MP, CBC ####[address] Urea nitrogen [Mass/volume] in Serum or PlasmaOrdered By: Ada Valentin on 10-01-2024 Urea nitrogen [Mass/Vol] 17 mg/dL 10-31 [facility] Comment on above: Performed By: #### B MP, CBC ####[address] Appearance of UrineOrdered B y: Radha Medina on 09-30-2024 Appearance (U) Clear Clear [facility] Comment on above: Order Comment: Name Collection Type:: Clean-Voided Midstream Performed By: #### B MP, PT #### [facility] [address] BNP ser/plasOrdered By: Anatoliy Medina on 09-30-2024 Natriuretic peptide B (Bld) [Mass/Vol] 308.0 pg/mL High 5-100 [facility] Comment on above: Result Comment: PERF ORMED BY: [place] [address] PATHOLOGIST COMM[employer]ITY SERVICE WORKER MICHELE ALMARAZ M.D. Performed By: #### B MP, PT #### [facility] [address] Bacteria [Presence] in Urine by AutomatedOrdered By: Radha Medina on 09-30-2024 Bacteria Auto Ql (U) Rare [HPF] None Seen [facility] Basic Metabolic Panelon 09-08 Anion gap [Moles/Vol] 13.3 mmol/L Normal 6.0-15.0 [facility] Comment on above: Performed By: #### B MP, PT #### [facility] [address] Calcium [Mass/Vol] 9.3 mg/dL Normal 8.6-10.3 [facility] Comment on above: Performed By: #### B MP, PT #### [facility] [address] [place] [address] [place] Chloride [Moles/Vol] 101 mmol/L Normal 98-107 [facility] Comment on above: Performed By: #### B MP, PT #### [facility] [address] [place] [address] [place] CO2 [Moles/Vol] 24.7 mmol/L Normal 21.0-31.0 [facility] Comment on above: Performed By: #### B MP, PT #### [facility] [address] [place] [address] [place] Creatinine [Mass/Vol] 1.32 mg/dL Significan t change down 0.70-1.30 [facility] Comment on above: Performed By: #### B MP, PT #### [facility] [address] [place] [address] [place] Creatinine Clr Calc Pharmacy 66.94 Normal [facility] Comment on above: Result Comment: PERF ORMED BY: [place] [address] PATHOLOGIST COMM[employer]ITY SERVICE WORKER MICHELE ALMARAZ M.D. Performed By: #### B MP, PT #### [place] [address] [place] GFR/1.73 sq M.predicted MDRD (S/P/Bld) [Vol rate/Area] mL/min/{1.73_m2} Normal [facility] Comment on above: Performed By: #### B MP, PT #### [address] Glucose [Mass/Vol] 171 mg/dL High 70-100 [facility] Comment on above: Result Comment: [facility] Glucose Reference Range is dependent on time and content of last meal. Glucose of more than 200 mg/dL in a nonstressed, ambulatory subject supports the diagnosis of Diabetes Mellitus. ADA recommended reference range Performed By: #### B MP, PT #### [address] Potassium [Moles/Vol] 4.0 mmol/L Normal 3.5-5.1 [facility] Comment on above: Performed By: #### B MP, PT #### [address] Sodium [Moles/Vol] 135 mmol/L Low 136-145 [facility] Comment on above: Performed By: #### B MP, PT #### [address] Urea nitrogen [Mass/Vol] 17 mg/dL Normal 7-25 [facility] Comment on above: Performed By: #### B MP, PT #### [address] Bilirubin Test strip Ql (U)O rdered By: Radha Medina on 09-30-2024 Bilirubin Ql (U) Negative Negative [facility] Blood Cultureon 09-30-2024 Bacteria identified Cx Nom (Bld) NO GROWTH 5 DAYS PERFORMED BY: [place] [address] PATHOLOGIST COMMUNITY SERVICE WORKER MICHELE ALMARAZ M.D. Normal [facility] Comment on above: Performed By: #### C UBLD, LACTIC ####[place] [id number] [address] Bacteria identified Cx Nom (Bld) NO GROWTH 5 DAYS PERFORMED BY: [address] [place] [address] PATHOLOGIST COMMUNITY SERVICE WORKER MICHELE ALMARAZ M.D. Normal [facility] Comment on above: Performed By: #### C UBLD, LACTIC ####[address] head/brain wo conon 09-30 CT head/brain wo con [facility] [place] [address] [place] [address] CT Scan Report Signed Patient: Esme Steven MR#: [id number] : 1960 Acct:[id number] Age/Sex: 63 / M ADM Date: 09/30/24 Loc: Room: [address] [place] [address] Type: DIS INOo Attending Dr: Leidy Nuno DO Copies to: MD Leidy Aguilar DO Ordering Provider: Radha Medina MD Date of Service: 09/30/24 CT/CT head/brain wo con: requested by hospitalist CT BRAIN WITHOUT CONTRAST: CLINICAL HISTORY: Blurred vision, weakness COMPARISON: 08/30/2023 TECHNIQUE: Contiguous axial unenhanced images were obtained through the brain. This CT exam was performed using one or more following dose reduction techniques: Automated exposure control, adjus tment of the mA and/or kV according to patient size, or use of iterative reconstruction technique. FINDINGS: There is no evidence of midline shift, intra or extra-axial fluid collection, hemorrhage or CT evidence of acute large vascular distribution stroke Visualized intraorbital contents appear unremarkable. Visualized paranasal sinuses are clear. The surrounding soft tissues are normal. CT/CT head/brain wo con IMPRESSION: NO ACUTE INTRACRANIAL ABNORMALITY. Impression dictated by: Ap Paul M.D. 09/30/2024 4:34 PM Dictation Location: [place] [address] Transcribed By: [facility] 09/30/24 1634 Dictated By: Ap Paul MD 09/30/24 1630 Signed By: 09/30/24 1634 Normal [facility] Color of Urine by AutoOrdere d By: Radha Medina on 09-30-2024 Color (U) Yellow Yellow [facility] Comment on above: Order Comment: Name Collection Type:: Clean-Voided Midstream Performed By: #### B MP, PT #### [address] Complete Blood Count Auto Di ffon 09-30-2024 Basophils (Bld) [#/Vol] 0.1 10*3/uL Normal 0.0-0.2 [facility] Comment on above: Result Comment: PERF ORMED BY: [place] [address] PATHOLOGIST COMMUNITY SERVICE WORKER MICHELE ALMARAZ M.D. Performed By: #### B MP, PT #### [address] Basophils/100 WBC (Bld) 0.6 % Normal . [facility] Comment on above: Performed By: #### B MP, PT #### [address] Eosinophils (Bld) [#/Vol] 0.0 10*3/uL Normal 0.0-0.45 [facility] Comment on above: Performed By: #### B MP, PT #### [address] Eosinophils/100 WBC (Bld) 0.2 % Normal . [facility] Comment on above: Performed By: #### B MP, PT #### [address] Erythrocyte distribution width (RBC) [Ratio] 14.0 % Normal 12.0-14.8 [facility] Comment on above: Performed By: #### B MP, PT #### [address] Hematocrit (Bld) [Volume fraction] 51.1 % High 38.8-50.0 [facility] Comment on above: Performed By: #### B MP, PT #### [address] Hemoglobin (Bld) [Mass/Vol] 17.3 g/dL High 13.0-17.0 [facility] Comment on above: Performed By: #### B MP, PT #### [address] Lymphocytes (Bld) [#/Vol] 1.9 10*3/uL Normal 1.00-4.8 [facility] Comment on above: Performed By: #### B MP, PT #### [address] Lymphocytes/100 WBC (Bld) 11.5 % Normal . [facility] Comment on above: Performed By: #### B MP, PT #### [address] MCH (RBC) [Entitic mass] 34.4 pg Normal 27.5-35.2 [facility] Comment on above: Performed By: #### B MP, PT #### [address] MCV (RBC) [Entitic vol] 101.9 fL High 83.5-101 [facility] Comment on above: Performed By: #### B MP, PT #### [address] Mean Corpuscular HGB Conc 33.8 g/dL Normal 32.5-35.6 [facility] Comment on above: Performed By: #### B MP, PT #### [address] Monocytes (Bld) [#/Vol] 0.7 10*3/uL Normal 0.0-0.8 [facility] Comment on above: Performed By: #### B MP, PT #### [address] Monocytes/100 WBC (Bld) 22.40 % High 0.00-20.00 [facility] Comment on above: Result Comment: For adults in ED, MDW > 20.0 may be associated with a higher risk of sepsis during the first 12 hrs of hospital admission Performed By: #### B MP, PT #### [facility] [address] Monocytes/100 WBC (Bld) 3.9 % Normal . [facility] Comment on above: Performed By: #### B MP, PT #### [facility] [address] [place] [address] [place] Neutrophils (Bld) [#/Vol] 14.2 10*3/uL High 1.8-7.7 [facility] Comment on above: Performed By: #### B MP, PT #### [facility] [address] [place] [address] [place] Neutrophils/100 WBC (Bld) 83.8 % Normal . [facility] Comment on above: Performed By: #### B MP, PT #### [facility] [address] [place] [address] [place] NRBC% 0.1 /100{WBC} Normal 0-0.5 [facility] Comment on above: Performed By: #### B MP, PT #### [facility] [address] [place] [address] [place] Platelet mean volume (Bld) [Entitic vol] 9.8 fL Normal 6.6-10.1 [facility] Comment on above: Performed By: #### B MP, PT #### [facility] [address] [place] [address] [place] Platelets (Bld) [#/Vol] 218 10*3/uL Normal 150-450 [facility] Comment on above: Performed By: #### B MP, PT #### [facility] [address] [place] [address] [place] RBC (Bld) [#/Vol] 5.01 10*6/uL Normal 3.90-5.60 [facility] Comment on above: Performed By: #### B MP, PT #### [facility] [address] WBC (Bld) [#/Vol] 16.9 10*3/uL High 4.1-10.5 [facility] Comment on above: Performed By: #### B MP, PT #### [facility] [address] White Blood Count 16.9 [CFU]/mL High 4.1-10.5 [facility] Comment on above: Performed By: #### B MP, PT #### [facility] [address] Creatine kinase [Enzymatic a ctivity/volume] in Serum or PlasmaOrdered By: Radha Medina on 09-30-2024 CK [Catalytic activity/Vol] 18 U/L Low 30-223 [facility] Comment on above: Performed By: #### B MP, PT #### [address] Dipstick and Microscopicon 0 09-30-2024 Bacteria,Urine Rare Normal None Seen [facility] Comment on above: Order Comment: Name Collection Type:: Clean-Voided Midstream Performed By: #### B MP, PT #### [address] Bilirubin,Urine Negative Normal Negative [facility] Comment on above: Order Comment: Name Collection Type:: Clean-Voided Midstream Performed By: #### B MP, PT #### [address] Glucose Ql (U) 70 mg/dL Normal Normal [facility] Comment on above: Order Comment: Name Collection Type:: Clean-Voided Midstream Performed By: #### B MP, PT #### [place] [address] [place] Hyaline Casts,Urine 20-49 Normal 0-8 [facility] Comment on above: Order Comment: Name Collection Type:: Clean-Voided Midstream Performed By: #### B MP, PT #### [address] Mucus,Urine 2+ [LPF] Critically abnormal [facility] Comment on above: Order Comment: Name Collection Type:: Clean-Voided Midstream Result Comment: PERF ORMED BY: [place] [address] PATHOLOGIST COMMUNITY SERVICE WORKER MICHELE ALMARAZ M.D. Performed By: #### B MP, PT #### [address] Nitrite,Urine Negative Normal Negative [facility] Comment on above: Order Comment: Name Collection Type:: Clean-Voided Midstream Performed By: #### B MP, PT #### [address] Occult Blood,Urine Negative Normal Negative [facility] Comment on above: Order Comment: Name Collection Type:: Clean-Voided Midstream Result Comment: PERF ORMED BY: [place] [address] PATHOLOGIST COMMUNITY SERVICE WORKER MICHELE ALMARAZ M.D. Performed By: #### B MP, PT #### [address] RBC,Urine 1-2 Normal 0-4 [facility] Comment on above: Order Comment: Name Collection Type:: Clean-Voided Midstream Performed By: #### B MP, PT #### [address] Specificy [place],Urine 1.028 Normal 1.001-1.03 0 [facility] Comment on above: Order Comment: Name Collection Type:: Clean-Voided Midstream Performed By: #### B MP, PT #### [address] Squamous Epithelial Cell,Urine 1-2 Normal 0-2 [facility] Comment on above: Order Comment: Name Collection Type:: Clean-Voided Midstream Performed By: #### B MP, PT #### [place] [address] [place] Urobilinogen,Urine Normal Normal Normal [facility] Comment on above: Order Comment: Name Collection Type:: Clean-Voided Midstream Performed By: #### B MP, PT #### [facility] [address] WBC,Urine 1-2 Normal 0-4 [facility] Comment on above: Order Comment: Name Collection Type:: Clean-Voided Midstream Performed By: #### B MP, PT #### [facility] [address] ECG 12 lead ECGon 09-30-2024 ECG 12 lead ECG [facility] Main [place] [address] [place] [address] Electrocardiograph Report Signed Patient: Esme Steven MR#: [id number] : 1960 Acct:[id number] Age/Sex: 63 / M ADM Date: 09/30/24 Loc: Room: [address] [place] [address] Type: ADM INOo Attending Dr: Leidy Nuno DO Ordering Provider: Radha Medina MD Date of Service: 09/30/24 ECG/ECG 12 lead ECG: Neuro Symptoms/Deficit Copies to: Test Reason : Blood Pressure : */* mmHG Vent. Rate : 94 BPM Atrial Rate : 202 BPM P-R Int : * ms QRS Dur : 108 ms QT Int : 384 ms P-R-T Axes : * -25 107 degrees QTcB Int : 480 ms Atrial fibrillation Nonspecific ST and T wave abnormality Confirmed by Radha Medina MD ([id number]) on 09/30/2024 9:27:27 PM Referred By: Electronically Signed By: Radha Medina MD Transcribed By: MUS Signed By Radha Medina MD 09/08 Normal [facility] Epithelial cells.squamous [# /area] in Urine sediment by Automated countOrdered By: Radha Medina on 09-30-2024 Epithelial cells.squamous Auto (Urine sed) [#/Area] 1-2 [HPF] 0-2 [facility] Erythrocytes [#/area] in Uri ne sediment by Automated countOrdered By: Radha Medina on 09-30-2024 RBC Auto (Urine sed) [#/Area] 1-2 [HPF] 0-4 [facility] Glucose [Mass/volume] in Uri ne by Test stripOrdered By: Radha Medina on 09-30-2024 Glucose Test strip (U) [Mass/Vol] 70 mg/dL High Normal [facility] Hemoglobin Test strip Ql (U) Ordered By: Radha Medina on 09-30-2024 Hemoglobin Ql (U) Negative Negative [facility] Hyaline casts [#/area] in Ur ine sediment by Automated countOrdered By: Radha Medina on 09-30-2024 Hyaline casts Auto (Urine sed) [#/Area] 20-49 [LPF] High 0-8 [facility] INR in Platelet poor plasma by Coagulation assayOrdered By: Radha Medina on 09-30-2024 INR Coag (PPP) [Relative time] 1.0 {INR} [facility] Comment on above: INR Therapeutic Rang e [...] heart valves: 3 - 4.5 PERFORMED BY: [place] [address] PATHOLOGIST COMMUNITY SERVICE WORKER MICHELE ALMARAZ M.D. Performed By: #### B MP, PT #### [address] Ketones [Presence] in Urine by Test stripOrdered By: Radha Medina on 09-30-2024 Ketones Ql (U) Negative Negative [facility] Comment on above: Order Comment: Name Collection Type:: Clean-Voided Midstream Performed By: #### B MP, PT #### [address] Laboratory - Microbiology an d Antimicrobial susceptibilityOrdered By: Radha Medina on 09-30-2024 Bacteria identified Cx Nom (Bld) NO GROWTH 5 DAYS [facility] Bacteria identified Cx Nom (Bld) NO GROWTH 5 DAYS [facility] Lactic Acidon 09-30-2024 Lactate [Moles/Vol] 2.2 mmol/L Off scale high 0.5-1.9 [facility] Comment on above: Result Comment: Crit ical Result : Called to and read back by: EVELYN TODD at: 09/30/2024 16:27:07 by:[id number] Lactic Acid reference range has been updated to 0.5 ? 1.9 mmol/L and the critical range of 2.0 or greater. PERFORMED BY: [place] [address] PATHOLOGIST COMMUNITY SERVICE WORKER MICHELE ALMARAZ M.D. Performed By: #### C UBLD, LACTIC ####[facility] [place] [id number] [facility] Lactic Acid Reflexon 025 Lactic Acid Reflex 2.4 mmol/L Off scale high 0.5-1.9 [facility] Comment on above: Result Comment: Crit ical Result : Called to and read back by: SHAHRZAD DIAZ at: 09/30/2024 20:32:04 by:HEATHER Lactic Acid reference range has been updated to 0.5 ? 1.9 mmol/L and the critical range of 2.0 or greater. PERFORMED BY: [place] [address] PATHOLOGIST COMMUNITY SERVICE WORKER MICHELE ALMARAZ M.D. Performed By: #### B MP, PT #### [place] [id number] [facility] Leukocyte esterase [Presence ] in Urine by Test stripOrdered By: Radha Medina on 09-30-2024 Leukocyte esterase Test strip Ql (U) Negative Negative [facility] Comment on above: Order Comment: Name Collection Type:: Clean-Voided Midstream Performed By: #### B MP, PT #### [facility] [address] Leukocytes [#/area] in Urine sediment by Automated countOrdered By: Radha Medina on 09-30-2024 WBC Auto (Urine sed) [#/Area] 1-2 [HPF] 0-4 [facility] Monocyte distribution width [Entitic volume] in Blood by AutomatedOrdered By: Radha Medina on 09-30-2024 Monocyte distribution width Auto (Bld) [Entitic vol] 22.40 % High 0.00-20.00 [facility] Comment on above: For adults in ED, MD W > 20.0 may be associated with a higher risk of sepsis during the first 12 hrs of hospital admission Mucus [Presence] in Urine by AutomatedOrdered By: Radha Medina on 09-30-2024 Mucus Auto Ql (U) 2+ [LPF] Abnormal [facility] Nitrite Test strip Ql (U)Ord ered By: Radha Medina on 09-30-2024 Nitrite Ql (U) Negative Negative [facility] Protein [Mass/volume] in Uri ne by Test stripOrdered By: Radha Medina on 09-30-2024 Protein (U) [Mass/Vol] 20 mg/dL High Negative [facility] Comment on above: Order Comment: Name Collection Type:: Clean-Voided Midstream Performed By: #### B MP, PT #### [facility] [address] [place] [id number] [facility] Prothrombin time (PT)Ordered By: Radha Medina on 09-30-2024 PT Coag (PPP) [Time] 11.8 s 9.0-12.9 [facility] Comment on above: A hematocrit value g reater than 55% may lead to inaccurate results in coagulation testing. Patients having hematocrit values >55% require a special collection tube for coagulation studies. Please contact the laboratory at [phone] for redraw instructions. Result Comment: A he matocrit value greater than 55% may lead to inaccurate results in coagulation testing. Patients having hematocrit values >55% require a special collection tube for coagulation studies. Please contact the laboratory at [phone] for redraw instructions. Performed By: #### B MP, PT #### [address] Specific gravity Test strip (U) [Rel density]Ordered By: Radha Medina on 09-30-2024 Specific gravity (U) [Rel density] 1.028 1.001-1.03 0 [facility] Troponin I High Sensitivityo n 09-30-2024 Troponin I High Sensitivity 12 Normal 0-20 [facility] Comment on above: Result Comment: The Troponin units of report have been changed to meet the Chest Pain Accreditation requirement, element EC5.M1l2. Troponin units are changed from pg/ml to ng/L. Also, the decimal is removed and results are in whole numbers. PERFORMED BY: [place] [address] PATHOLOGIST COMMUNITY SERVICE WORKER MICHELE ALMARAZ M.D. Performed By: #### B VINH, PT #### [address] Troponin I.cardiac [Mass/vol ume] in Serum or Plasma by Detection limit <= 0.01 ng/mLOrdered By: Radha Medina on 09-30-2024 Troponin I.cardiac DL <= 0.01 ng/mL [Mass/Vol] 12 ng/L 0- [facility] Comment on above: The Troponin units o f report have been changed to meet the Chest Pain Accreditation requirement, element EC5.M1l2. Troponin units are changed from pg/ml to ng/L. Also, the decimal is removed and results are in whole numbers. Urine Cultureon 09-30-2024 Bacteria identified Cx Nom (U) No Growth 2 Days PERFORMED BY: [place] [address] PATHOLOGIST COMMUNITY SERVICE WORKER MICHELE ALMARAZ M.D. Normal [facility] Comment on above: Performed By: #### B MP, PT #### [address] Urine cultureOrdered By: Arias Medina on 09-30-2024 Bacteria identified Cx Nom (U) No Growth 2 Days [facility] Urobilinogen Test strip (U) [Mass/Vol]Ordered By: Radha Medina on 09-30-2024 Urobilinogen (U) [Mass/Vol] Normal mg/dL Normal [facility] X-ray reportOrdered By: Don Castro on 09-30-2024 Study report [facility] [place] [address] XRay Report Signed Patient: Esme Steven MR#: [id number] : 1960 Acct:[id number] Age/Sex: 63 / M ADM Date: 5 Loc: ER Room: Type: [facility] ER Attending Dr: Copies to: Radha Medina MD~ Ordering Provider: Radha Medina MD Date of Service: 09/30/24 XR/XR chest 1V portable: Neuro Symptoms/Deficit SINGLE VIEW CHEST CLINICAL HISTORY: Blurry vision. Chest tightness headache shortness of breath COMPARISON: Chest 09/28/2024 FINDINGS: Heart and mediastinal structures appear unchanged. No new consolidation pneumothorax pleural effusion or free air. XR/XR chest 1V portable IMPRESSION: NO ACUTE FINDINGS Impression dictated by: Alex Castro Jr., D.O. 09/30/2024 2:56 PM Dictation Location: [place] [address] Transcribed By: [facility] 09/30/24 1456 Dictated By: Alex Castro Jr, DO 09/30/24 1454 Signed By: 09/30/24 1456 [facility] XR chest 1V portableon 09-30 XR chest 1V portable [facility] Main [place] [id number] XRay Report Signed Patient: Esme Steven MR#: [id number] : 1960 Acct:[id number] Age/Sex: 63 / M ADM Date: 09/30/24 Loc: Room: [address] [place] [address] Type: DIS INOo Attending Dr: Leidy Nuno DO Copies to: MD Leidy Aguilar DO Ordering Provider: Radha Medina MD Date of Service: 09/30/24 XR/XR chest 1V portable: Neuro Symptoms/Deficit SINGLE VIEW CHEST CLINICAL HISTORY: Blurry vision. Chest tightness headache shortness of breath COMPARISON: Chest 09/28/2024 FINDINGS: Heart and mediastinal structures appear unchanged. No new consolidation pneumothorax pleural effusion or free air. XR/XR chest 1V portable IMPRESSION: NO ACUTE FINDINGS Impression dictated by: Alex Castro Jr., D.OBarbara 09/30/2024 2:56 PM Dictation Location: [place] [address] Transcribed By: [facility] 09/30/24 145 Dictated By: Alex Castro Jr, DO 09/30/24 1454 Signed By: 09/30/24 145 Normal [facility] pH of Urine by Test stripOrd ered By: Radha Medina on 09-30-2024 pH (U) 5.5 [pH] 5.0-9.0 [facility] Comment on above: Order Comment: Name Collection Type:: Clean-Voided Midstream Performed By: #### B MP, PT #### [address] BNP ser/plasOrdered By: Luc Ascencio on 09-29-2024 Natriuretic peptide B (Bld) [Mass/Vol] 417.0 pg/mL High 5-100 [facility] Comment on above: Result Comment: PERF ORMED BY: [place] [address] PATHOLOGIST COMMUNITY SERVICE WORKER MICHELE ALMARAZ M.D. Performed By: #### R ENAL #### [address] Basic Metabolic Panelon 09-08 Creatinine Clr Calc Pharmacy 112.50 Normal [facility] Comment on above: Order Comment: FASTI NG Y Performed By: #### R ENAL #### [address] GFR/1.73 sq M.predicted MDRD (S/P/Bld) [Vol rate/Area] mL/min/{1.73_m2} Normal [facility] Comment on above: Order Comment: FASTI NG Y Performed By: #### R ENAL #### [facility] [address] [place] [address] [place] Basophils [#/volume] in Bloo d by Automated countOrdered By: [place] Ascencio on 09-29-2024 Basophils (Bld) [#/Vol] 0.1 10*3/uL 0.0-0.2 [facility] Comment on above: Result Comment: PERF ORMED BY: [place] [address] PATHOLOGIST COMMUNITY SERVICE WORKER MICHELE ALMARAZ M.D. Performed By: #### R ENAL #### [place] [address] [place] Basophils/100 leukocytes in Blood by Automated countOrdered By: [place] Ascencio on 09-29-2024 Basophils/100 WBC (Bld) 1.0 % . [facility] Comment on above: Performed By: #### R ENAL #### [place] [address] [place] Calcium [Mass/volume] in Ser um or PlasmaOrdered By: [place] Ascencio on 09-29-2024 Calcium [Mass/Vol] 8.9 mg/dL 8.6-10.3 [facility] Comment on above: Order Comment: FASTI NG Y Performed By: #### R ENAL #### [facility] [address] [place] [address] [place] Carbon dioxide, total [Moles /volume] in Serum or PlasmaOrdered By: [place] Ascencio on 09-29-2024 CO2 [Moles/Vol] 24.6 mmol/L 21.0-31.0 [facility] Comment on above: Order Comment: FASTI NG Y Performed By: #### R ENAL #### [place] [address] [place] Chloride [Moles/volume] in S ursula or PlasmaOrdered By: [place] Ascencio on 09-29-2024 Chloride [Moles/Vol] 104 mmol/L 98-107 [facility] Comment on above: Order Comment: MAZIN Nicolas Performed By: #### R ENAL #### [facility] [address] [place] [id number] [place] Cholesterol [Mass/volume] in Serum or PlasmaOrdered By: [place] Ascencio on 09-29-2024 Cholesterol [Mass/Vol] 194 mg/dL 140-200 [facility] Comment on above: Chol less than 200 m g/dl low riskChol 201-239 mg/dl borderline riskChol 240 mg/dl and greater high risk Order Comment: MAZIN Nicolas Result Comment: Chol less than 200 mg/dl low risk Chol 201-239 mg/dl borderline risk Chol 240 mg/dl and greater high risk Performed By: #### R ENAL #### [facility] [address] [place] [id number] [place] Cholesterol in HDL [Mass/vol ume] in Serum or PlasmaOrdered By: [place] Ascencio on 09-29-2024 Cholesterol in HDL [Mass/Vol] 36 mg/dL 23- [facility] Comment on above: HDL CHOL ATP-III CLA SSIFICATION Cardiovascular RiskHDL > or equal to 60 mg/dL LOWHDL < 40 mg/dL HIGH Order Comment: MAZIN Nicolas Result Comment: HDL CHOL ATP-III CLASSIFICATION Cardiovascular Risk HDL > or equal to 60 mg/dL LOW HDL < 40 mg/dL HIGH Performed By: #### R ENAL #### [facility] [address] [place] [id number] [place] Cholesterol in LDL Calc [Mas s/Vol]Ordered By: Sal[place] Ascencio on 09-29-2024 Cholesterol in LDL [Mass/Vol] 103 mg/dL High 0-100 [facility] Comment on above: LDL ATP III CLASSIFI CATIONLDL less than 100 mg/dL OptimalLDL 100-129 mg/dL Near or above optimalLDL 130-159 mg/dL Borderline highLDL 160-189 mg/dL HighLDL greater than 189 mg/dL Very high Cholesterol in VLDL Calc [Ma ss/Vol]Ordered By: [place] Ascencio on 09-29-2024 Cholesterol in VLDL [Mass/Vol] 54 mg/dL [facility] Complete Blood Count Auto Di ffon 09-29-2024 Mean Corpuscular HGB Conc 33.7 g/dL Normal 32.5-35.6 [facility] Comment on above: Performed By: #### R ENAL #### [facility] [address] [place] [address] NRBC% 0.2 /100{WBC} Normal 0-0.5 [facility] Comment on above: Performed By: #### R ENAL #### [facility] [address] [place] [address] White Blood Count 13.0 [CFU]/mL High 4.1-10.5 [facility] Comment on above: Performed By: #### R ENAL #### [address] Creatinine [Mass/volume] in Serum or PlasmaOrdered By: Sal[place] Ascencio on 09-29-2024 Creatinine [Mass/Vol] 0.80 mg/dL 0.70-1.30 [facility] Comment on above: Order Comment: FASTI NG Y Performed By: #### R ENAL #### [address] ECG 12 lead ECGon 09-29-2024 ECG 12 lead ECG [facility] [address] [place] [address] [place] [address] Electrocardiograph Report Signed Patient: Esme Steven MR#: [id number] : 1960 Acct:[id number] Age/Sex: 63 / M ADM Date: 09/29/24 Loc: Room: [address] [place] [address] Type: ADM INOo Attending Dr: Tomy Cabello MD Ordering Provider: Salinas Ascencio DO Date of Service: 09/29/24 ECG/ECG 12 lead ECG: chest pain Copies to: Test Reason : Blood Pressure : */* mmHG Vent. Rate : 84 BPM Atrial Rate : * BPM P-R Int : * ms QRS Dur : 120 ms QT Int : 396 ms P-R-T Axes : * 6 152 degrees QTcB Int : 467 ms Atrial fibrillation Nonspecific intraventricular conduction delay Minimal voltage criteria for LVH, may be normal variant ( Obi product ) T wave abnormality, consider lateral ischemia Abnormal ECG When compared with ECG of 29-Sep-2024 03:23, (Unconfirmed) T wave inversion now evident in Lateral leads Confirmed by Will Koch ([id number]) on 09/29/2024 2:14:15 PM Referred By: Electronically Signed By: Will Koch Transcribed By: MUS Signed By Will Koch MD 09/29/24 1414 Normal [facility] ECG 12 lead ECG [facility] [place] [address] [place] [address] Electrocardiograph Report Signed Patient: Esme Steven MR#: [id number] : 1960 Acct:[id number] Age/Sex: 63 / M ADM Date: 09/29/24 Loc: Room: [address] [place] [address] Type: ADM INOo Attending Dr: Tomy Cabello MD Ordering Provider: Salinas Ascencio DO Date of Service: 09/29/24 ECG/ECG 12 lead ECG: chest pain Copies to: Test Reason : Blood Pressure : */* mmHG Vent. Rate : 90 BPM Atrial Rate : * BPM P-R Int : * ms QRS Dur : 114 ms QT Int : 386 ms P-R-T Axes : * 57 -25 degrees QTcB Int : 472 ms Atrial fibrillation Inferior infarct , age undetermined Abnormal ECG Confirmed by Will Kcoh ([id number]) on 09/29/2024 2:14:06 PM Referred By: Electronically Signed By: Will Koch Transcribed By: MUS Signed By Will Koch MD 09/29/24 1414 Normal [facility] Eosinophils [#/volume] in Bl ood by Automated countOrdered By: Salinas Ascencio on 09-29-2024 Eosinophils (Bld) [#/Vol] 0.1 10*3/uL 0.0-0.45 [facility] Comment on above: Performed By: #### R ENAL #### [address] Eosinophils/100 leukocytes i n Blood by Automated countOrdered By: Salinas Ascencio on 09-29-2024 Eosinophils/100 WBC (Bld) 0.6 % . [facility] Comment on above: Performed By: #### R ENAL #### [facility] [address] Erythrocyte distribution wid th [Ratio] by Automated countOrdered By: Salinas Ascencio on 09-29-2024 Erythrocyte distribution width (RBC) [Ratio] 14.3 % 12.0-14.8 [facility] Comment on above: Performed By: #### R ENAL #### [address] Erythrocytes [#/volume] in B lood by Automated countOrdered By: Salinas Ascencio on 09-29-2024 RBC (Bld) [#/Vol] 4.62 10*6/uL 3.90-5.60 [facility] Comment on above: Performed By: #### R ENAL #### [address] Glucose [Mass/volume] in Ser um or PlasmaOrdered By: Salinas Ascencio on 09-29-2024 Glucose [Mass/Vol] 91 mg/dL 70-100 [facility] Comment on above: ADA recommended refe rence rangeRandom Glucose Reference Range is dependent on time and content of last meal. Glucose of more than 200 mg/dL in a nonstressed, ambulatory subject supports the diagnosis of Diabetes Mellitus. Order Comment: FASTI NG Y Result Comment: [facility] om Glucose Reference Range is dependent on time and content of last meal. Glucose of more than 200 mg/dL in a nonstressed, ambulatory subject supports the diagnosis of Diabetes Mellitus. ADA recommended reference range Performed By: #### R ENAL #### [address] Hematocrit [Volume Fraction] of Blood by Automated countOrdered By: Salinas Ascencio on 09-29-2024 Hematocrit (Bld) [Volume fraction] 47.6 % 38.8-50.0 [facility] Comment on above: Performed By: #### R ENAL #### [facility] [address] [place] [address] Hemoglobin [Mass/volume] in BloodOrdered By: Salinas Ascencio on 09-29-2024 Hemoglobin (Bld) [Mass/Vol] 16.0 g/dL 13.0-17.0 [facility] Comment on above: Performed By: #### R ENAL #### [facility] [address] [place] [address] INR in Platelet poor plasma by Coagulation assayOrdered By: Salinas Ascencio on 09-29-2024 INR Coag (PPP) [Relative time] 1.0 {INR} [facility] Comment on above: INR Therapeutic Rang e [...] valves: 3 - 4.5 Performed By: #### R ENAL #### [address] Leukocytes [#/volume] correc collins for nucleated erythrocytes in Blood by Automated counOrdered By: Salinas Ascencio on 09-29-2024 WBC corrected for nucl RBC Auto (Bld) [#/Vol] 13.0 10*3/uL High 4.1-10.5 [facility] Leukocytes [#/volume] in Blo od by Automated countOrdered By: Salinas Ascencio on 09-29-2024 WBC (Bld) [#/Vol] 13.0 10*3/uL High 4.1-10.5 [facility] Comment on above: Performed By: #### R ENAL #### [address] Lipid Panelon 09-29-2024 LDL Cholesterol,Calculated 103 mg/dL High 0-100 [facility] Comment on above: Order Comment: MAZIN Nicolas Result Comment: LDL ATP III CLASSIFICATION LDL less than 100 mg/dL Optimal LDL 100-129 mg/dL Near or above optimal LDL 130-159 mg/dL Borderline high LDL 160-189 mg/dL High LDL greater than 189 mg/dL Very high Performed By: #### R ENAL #### [address] Triglyceride w/Reflex 273 mg/dL High 0-149 [facility] Comment on above: Order Comment: FASTShyann PATTERSON Y Result Comment: TRIG ATP III CLASSIFICATION TRIG less than 150 mg/dL Normal TRIG 150-199 mg/dL Borderline high TRIG 200-500 mg/dL High TRIG greater than 500 mg/dL Very high Standard traceable to the Center for Disease Conrtrol and Prevention (CDC) test method. Performed By: #### R ENAL #### [address] VLDL CHOLESTEROL 54 mg/dL Normal [facility] Comment on above: Order Comment: MAZIN Nicolas Performed By: #### R ENAL #### [address] Lymphocytes [#/volume] in Bl ood by Automated countOrdered By: Salinas Ascencio on 09-29-2024 Lymphocytes (Bld) [#/Vol] 2.2 10*3/uL 1.00-4.8 [facility] Comment on above: Performed By: #### R ENAL #### [address] Lymphocytes/100 leukocytes i n Blood by Automated countOrdered By: Salinas Ascencio on 09-29-2024 Lymphocytes/100 WBC (Bld) 16.8 % . [facility] Comment on above: Performed By: #### R ENAL #### [address] MCH [Entitic mass] by Automa collins countOrdered By: Salinas Ascencio on 09-29-2024 MCH (RBC) [Entitic mass] 34.7 pg 27.5-35.2 [facility] Comment on above: Performed By: #### R ENAL #### [address] MCHC Auto (RBC) [Mass/Vol]Or dered By: Salinas Ascencio on 09-29-2024 MCHC (RBC) [Mass/Vol] 33.7 g/dL 32.5-35.6 [facility] MCV [Entitic volume] by Auto mated countOrdered By: Salinas Ascencio on 09-29-2024 MCV (RBC) [Entitic vol] 103.0 fL High 83.5-101 [facility] Comment on above: Performed By: #### R ENAL #### [address] Magnesium [Mass/volume] in S ursula or PlasmaOrdered By: Salinas Ascencio on 09-29-2024 Magnesium [Mass/Vol] 1.6 mg/dL Low 1.9-2.7 [facility] Comment on above: Order Comment: MAZIN NG Y Performed By: #### R ENAL #### [facility] [address] [place] [address] Monocytes [#/volume] in Bloo d by Automated countOrdered By: Salinas Ascencio on 09-29-2024 Monocytes (Bld) [#/Vol] 1.1 10*3/uL High 0.0-0.8 [facility] Comment on above: Performed By: #### R ENAL #### [address] Monocytes/100 leukocytes in Blood by Automated countOrdered By: Salinas Ascencio on 09-29-2024 Monocytes/100 WBC (Bld) 8.8 % . [facility] Comment on above: Performed By: #### R ENAL #### [facility] [address] [place] [address] [place] Neutrophils [#/volume] in Bl ood by Automated countOrdered By: Salinas Ascencio on 09-29-2024 Neutrophils (Bld) [#/Vol] 9.4 10*3/uL High 1.8-7.7 [facility] Comment on above: Performed By: #### R ENAL #### [address] Neutrophils/100 leukocytes i n Blood by Automated countOrdered By: Salinas Ascencio on 09-29-2024 Neutrophils/100 WBC (Bld) 72.8 % . [facility] Comment on above: Performed By: #### R ENAL #### [address] No Panel InformationOrdered By: Salinas Ascencio on 09-29-2024 Estimated GFR (CKD-EPI) > 60.0 mL/Min [facility] Creatinine Clearance (Chem 112.50 [facility] Nucleated erythrocytes [Pres ence] in Blood by Automated countOrdered By: Salinas Ascencio on 09-29-2024 Nucleated RBC Auto Ql (Bld) 0.2 /100{WBC} 0-0.5 [facility] Partial Thromboplastin Timeo n 09-29-2024 aPTT Coag (Bld) [Time] 23.1 s Low 25.1-36.5 [facility] Comment on above: Result Comment: A he matocrit value greater than 55% may lead to inaccurate results in coagulation testing. Patients having hematocrit values >55% require a special collection tube for coagulation studies. Please contact the laboratory at [phone] for redraw instructions. PERFORMED BY: [place] [address] PATHOLOGIST COMMUNITY SERVICE WORKER MICHELE ALMARAZ M.D. Performed By: #### R ENAL #### [address] [place] [address] [place] Platelet mean volume [Entiti c volume] in Blood by Automated countOrdered By: Salinas Ascencio on 09-29-2024 Platelet mean volume (Bld) [Entitic vol] 9.6 fL 6.6-10.1 [facility] Comment on above: Performed By: #### R ENAL #### [address] Platelets [#/volume] in Bloo d by Automated countOrdered By: Salinas Ascencio on 09-29-2024 Platelets (Bld) [#/Vol] 184 10*3/uL 150-450 [facility] Comment on above: Performed By: #### R ENAL #### [address] Potassium [Moles/volume] in Serum or PlasmaOrdered By: Salinas Ascencio on 09-29-2024 Potassium [Moles/Vol] 3.6 mmol/L 3.5-5.1 [facility] Comment on above: Hemolysis is present at a level that could interfere with the result.Contact lab if redraw is required Order Comment: MAZIN Nicolas Result Comment: Hemo lysis is present at a level that could interfere with the result. Contact lab if redraw is required Performed By: #### R ENAL #### [address] Prothrombin time (PT)Ordered By: Salinas Ascencio on 09-29-2024 PT Coag (PPP) [Time] 11.5 s 9.0-12.9 [facility] Comment on above: A hematocrit value g reater than 55% may lead to inaccurate results in coagulation testing. Patients having hematocrit values >55% require a special collection tube for coagulation studies. Please contact the laboratory at [phone] for redraw instructions. Result Comment: A he matocrit value greater than 55% may lead to inaccurate results in coagulation testing. Patients having hematocrit values >55% require a special collection tube for coagulation studies. Please contact the laboratory at [phone] for redraw instructions. Performed By: #### R ENAL #### [address] Serum or plasma anion gap de terminationOrdered By: Salinas Ascencio on 09-29-2024 Anion gap [Moles/Vol] 11.0 mmol/L 6.0-15.0 [facility] Comment on above: Order Comment: FASTShyann NG Y Performed By: #### R ENAL #### [address] Serum or plasma total choles terol/high density lipoprotein (HDL) cholesterol mass ratOrdered By: Salinas Ascencio on 09-29-2024 Cholesterol.total/Chol esterol in HDL [Mass ratio] 5.4 {ratio} <5.0 [facility] Comment on above: Order Comment: FASTI NG Y Result Comment: PERF ORMED BY: [place] [address] PATHOLOGIST COMM[employer]ITY SERVICE WORKER MICHELE ALMARAZ M.D. Performed By: #### R ENAL #### [address] Sodium [Moles/volume] in Ser um or PlasmaOrdered By: Salinas Ascencio on 09-29-2024 Sodium [Moles/Vol] 136 mmol/L 136-145 [facility] Comment on above: Order Comment: FASTShyann NG Y Performed By: #### R ENAL #### [address] Triglyceride [Mass/volume] i n Serum or PlasmaOrdered By: Salinas Ascencio on 09-29-2024 Triglyceride [Mass/Vol] 273 mg/dL High 0-149 [facility] Comment on above: TRIG ATP III CLASSIF ICATIONTRIG less than 150 mg/dL NormalTRIG 150-199 mg/dL Borderline highTRIG 200-500 mg/dL High TRIG greater than 500 mg/dL Very highStandard traceable to the Center for Disease Conrtrol and Prevention (CDC) test method. Troponin I High Sensitivityo n 09-29-2024 Troponin I High Sensitivity 10 Normal 0-20 [facility] Comment on above: Result Comment: The Troponin units of report have been changed to meet the Chest Pain Accreditation requirement, element EC5.M1l2. Troponin units are changed from pg/ml to ng/L. Also, the decimal is removed and results are in whole numbers. PERFORMED BY: [place] [address] PATHOLOGIST COMMUNITY SERVICE WORKER MICHELE ALMARAZ M.D. Performed By: #### H S TROP ####[place] [id number] [facility] Troponin I High Sensitivity 10 Normal 0-20 [facility] Comment on above: Result Comment: The Troponin units of report have been changed to meet the Chest Pain Accreditation requirement, element EC5.M1l2. Troponin units are changed from pg/ml to ng/L. Also, the decimal is removed and results are in whole numbers. PERFORMED BY: [place] [address] PATHOLOGIST COMMUNITY SERVICE WORKER MICHELE ALMARAZ M.D. Performed By: #### H S TROP ####[place] [id number] [facility] Troponin I High Sensitivity 10 Normal 0-20 [facility] Comment on above: Result Comment: The Troponin units of report have been changed to meet the Chest Pain Accreditation requirement, element EC5.M1l2. Troponin units are changed from pg/ml to ng/L. Also, the decimal is removed and results are in whole numbers. PERFORMED BY: [place] [address] PATHOLOGIST COMMUNITY SERVICE WORKER MICHELE ALMARAZ M.D. Performed By: #### B MP, PT #### [address] Troponin I.cardiac [Mass/vol ume] in Serum or Plasma by Detection limit <= 0.01 ng/mLOrdered By: Salinas Ascencio on 09-29-2024 Troponin I.cardiac DL <= 0.01 ng/mL [Mass/Vol] 10 ng/L 0-20 [facility] Comment on above: The Troponin units o f report have been changed to meet the Chest Pain Accreditation requirement, element EC5.M1l2. Troponin units are changed from pg/ml to ng/L. Also, the decimal is removed and results are in whole numbers. Urea nitrogen [Mass/volume] in Serum or PlasmaOrdered By: Salinas Ascencio on 09-29-2024 Urea nitrogen [Mass/Vol] 20 mg/dL 10-31 [facility] Comment on above: Order Comment: FASTI NG Y Performed By: #### R ENAL #### [facility] [address] aPTT in Platelet poor plasma by Coagulation assayOrdered By: Salinas Ascencio on 09-29-2024 aPTT Coag (PPP) [Time] 23.1 s Low 25.1-36.5 [facility] Comment on above: A hematocrit value g reater than 55% may lead to inaccurate results in coagulation testing. Patients having hematocrit values >55% require a special collection tube for coagulation studies. Please contact the laboratory at [phone] for redraw instructions. Basophils Auto (Bld) [#/Vol] Ordered By: Fang Zhu on 09-28-2024 Basophils (Bld) [#/Vol] 0.1 10 3/uL 0.0-0.1 [facility] Basophils/100 WBC Auto (Bld) Ordered By: Fang Zhu on 09-28-2024 Basophils/100 WBC (Bld) 0.4 % 0.2-2.0 [facility] Eosinophils/100 WBC Auto (Bl d)Ordered By: Fang Zhu on 09-28-2024 Eosinophils/100 WBC (Bld) 0.1 % Low 0.9-7.0 [facility] Erythrocyte distribution wid th Auto (RBC) [Ratio]Ordered By: Fang Zhu on 09-28-2024 Erythrocyte distribution width (RBC) [Ratio] 13.0 % 11.0-15.0 [facility] Estimated glomerular filtrat ion rate (GFR) non- AmericanOrdered By: Fang Zhu on 09-28-2024 GFR/1.73 sq M.predicted among non-blacks MDRD (S/P/Bld) [Vol rate/Area] 58 mL/min/{1.73_m2} Low >=60 mL/min/1.7 3m 2 [facility] Globulin Calc (S) [Mass/Vol] Ordered By: Fang Zhu on 09-28-2024 Globulin (S) [Mass/Vol] 3.9 g/dL [facility] Hematocrit Auto (Bld) [Volum e fraction]Ordered By: Fang Zhu on 09-28-2024 Hematocrit (Bld) [Volume fraction] 49.1 % 42.0-54.0 [facility] Hemoglobin [Mass/volume] in BloodOrdered By: Fang Zhu on 09-28-2024 Hemoglobin (Bld) [Mass/Vol] 17.1 g/dL 14.0-18.0 [facility] INR in Platelet poor plasma by Coagulation assayOrdered By: Fang Zhu on 09-28-2024 INR Coag (PPP) [Relative time] 1.09 {INR} [facility] Comment on above: DESIRED INR:2.0-3.0 CONDITIONS NOT LISTED BELOW2.5-3.5 FOR PROSTHETIC HEART VALVE REPLACEMENT2.5-3.5 RECURRENT THROMBOSIS Laboratory - Chemistry and C hemistry - challengeOrdered By: Fang Zhu on 09-28-2024 Albumin [Mass/Vol] 4.0 g/dL 3.4-5.0 [facility] ALP [Catalytic activity/Vol] 74 U/L 46-116 [facility] ALT [Catalytic activity/Vol] 53 U/L 16-63 [facility] AST [Catalytic activity/Vol] 28 U/L 15-37 [facility] Bilirubin [Mass/Vol] 1.5 mg/dL High 0.2-1.0 [facility] Calcium [Mass/Vol] 9.2 mg/dL 8.5-10.1 [facility] Chloride [Moles/Vol] 100 mmol/L 98-107 [facility] CO2 [Moles/Vol] 24.1 mmol/L 21.0-32.0 [facility] Creatinine [Mass/Vol] 1.25 mg/dL 0.70-1.30 [facility] GFR/1.73 sq M.predicted MDRD (S/P/Bld) [Vol rate/Area] mL/min/{1.73_m2} >=60 mL/min/1.7 3m 2 [facility] Glucose [Mass/Vol] 229 mg/dL High 74-106 [facility] Potassium [Moles/Vol] 4.0 mmol/L 3.5-5.1 [facility] Protein [Mass/Vol] 7.9 g/dL 6.4-8.2 [facility] Sodium [Moles/Vol] 137 mmol/L 136-145 [facility] Urea nitrogen [Mass/Vol] 30.0 mg/dL High 7.0-18.0 [facility] Urea nitrogen/Creatinine [Mass ratio] 24.0 mg/mg [facility] Laboratory - Hematology and Cell countsOrdered By: Fang Zhu on 09-28-2024 Immature granulocytes/100 WBC (Bld) 0.7 % High 0.0-0.5 [facility] Leukocytes [#/volume] correc collins for nucleated erythrocytes in Blood by Automated counOrdered By: Fang Zhu on 09-28-2024 WBC corrected for nucl RBC Auto (Bld) [#/Vol] 15.1 10 3/uL High 4.0-11.0 [facility] Lymphocytes Auto (Bld) [#/Vo l]Ordered By: Fang Zhu on 09-28-2024 Lymphocytes (Bld) [#/Vol] 1.7 10 3/uL 1.2-3.8 [facility] Lymphocytes/100 WBC Auto (Bl d)Ordered By: Fang Zhu on 09-28-2024 Lymphocytes/100 WBC (Bld) 11.0 % Low 20.5-60.0 [facility] MCH Auto (RBC) [Entitic mass ]Ordered By: Fang Zhu on 09-28-2024 MCH (RBC) [Entitic mass] 34.4 pg High 25.9-34.0 [facility] MCHC Auto (RBC) [Mass/Vol]Or dered By: Fang Zhu on 09-28-2024 MCHC (RBC) [Mass/Vol] 34.8 g/dL 29.9-35.2 [facility] MCV Auto (RBC) [Entitic vol] Ordered By: Fang Zhu on 09-28-2024 MCV (RBC) [Entitic vol] 98.8 fL High 80.0-94.0 [facility] Monocytes Auto (Bld) [#/Vol] Ordered By: Fang Zhu on 09-28-2024 Monocytes (Bld) [#/Vol] 0.5 10 3/uL 0.3-0.8 [facility] Monocytes/100 WBC Auto (Bld) Ordered By: Fang Audra on 09-28-2024 Monocytes/100 WBC (Bld) 3.4 % 1.7-12.0 [facility] Neutrophils Auto (Bld) [#/Vo l]Ordered By: Fang Zhu on 09-28-2024 Neutrophils (Bld) [#/Vol] 12.8 10 3/uL High 1.4-6.5 [facility] Neutrophils/100 WBC Auto (Bl d)Ordered By: Fang Zhu on 09-28-2024 Neutrophils/100 WBC (Bld) 84.4 % High 43.0-75.0 [facility] No Panel InformationOrdered By: [facility] on 09-28-2024 Troponin I High Sensitivity 9.5 pg/mL 4.0-76.1 [facility] Comment on above: CUT-OFF POINTS HAVE BEEN ESTABLISHED BASED ON THE FOURTHUNIVERSAL DEFINITION OF MYOCARDIAL INFARCTION. THE UPPERREFERENCE LIMIT (URL) OF TROPONIN, DEFINED THE 99THPERCENTILE OF cTnI DISTRIBUTION IN A REFERENCE POPULATION,HAS BEEN CONFIRMED THE DECISION THRESHOLD FOR MIDIAGNOSIS.99TH PERCENTILE = 76.2 PG/MLNOTE: HIGH-SENSITIVITY TROPONIN ASSAY IS NOT INTENDED TO BEUSED IN ISOLATION BUT SHOULD BE INTERPRETED IN CONJUNCTIONWITH OTHER DIAGNOSTIC AND CLINICAL INFORMATION. Eosinophils # (Auto) 0.0 10 3/uL 0.0-0.7 [facility] Immature Granulocyte # (Auto) 0.11 10 3/uL High 0.00-0.03 [facility] Platelet mean volume Auto (B ld) [Entitic vol]Ordered By: Fang Zhu on 09-28-2024 Platelet mean volume (Bld) [Entitic vol] 11.0 fL 9.5-13.5 [facility] Platelets Auto (Bld) [#/Vol] Ordered By: Fang hZu on 09-28-2024 Platelets (Bld) [#/Vol] 265 10 3/uL 150-450 [facility] Prothrombin time (PT)Ordered By: Fang Zhu on 09-28-2024 PT Coag (PPP) [Time] 11.5 s 9.0-11.6 [facility] RBC Auto (Bld) [#/Vol]Ordere d By: Fang Zhu on 09-28-2024 RBC (Bld) [#/Vol] 4.97 10 6/uL 4.70-6.10 [facility] Serum or plasma albumin/glob ulin mass ratioOrdered By: Fang Zhu on 09-28-2024 Albumin/Globulin [Mass ratio] 1.0 {ratio} [facility] Serum or plasma anion gap de terminationOrdered By: Fang Zhu on 09-28-2024 Anion gap [Moles/Vol] 16.9 mmol/L [facility] CNPNon 09-13-2024 CNPN Telephone ([employer]) ----- ESME STEVEN ([id number]) 1960 M Date Time Provider Department 09/13/24 HELADIO PINEDA During your visit today, we recorded the following information about you: Heladio Pineda MD 09/13/2024 10:22 AM Signed Please call patient to schedule Nonfasting labs Follow up for osteoarthritis/PMR/gout in 6-12months Yannick Koo 09/25/2024 3:47 PM Signed Patient is stating he can't walk, he went back on the steroid he is taking 2 of 4 mg , He said that he can walk, He is requesting a call from a nurse or Dr. Pineda. Next year appointment is scheduled , labs he said that he will walk in and do them Heladio Pineda MD 09/26/2024 12:00 PM Signed Please call patient. Thank you for the [...] on a speedy recovery! Warm regards, :) Melany Pearson MA 09/26/2024 12:56 PM Signed LMTCB Debra Luna RN 09/26/2024 3:36 PM Signed Pt returning call Read message below Voiced understanding No further questions Allergies As of Date: 09/13/2024 (No Known Allergies) Date Reviewed: 09/13/2024 Reviewed by: Heladio Pineda MD - Fully Assessed Reason for Visit: Orders [681] Appointment [186] Prescriptions as of 09/26/2024 - celecoxib (CELEBREX) 200 mg capsule Take 1 capsule by mouth two times a day. - allopurinol (ZYLOPRIM) 100 mg tablet Take [...] Day 6=1tab, No NSAIDs on med - magnesium oxide (MAG-OX) 400 mg (241.3 mg magnesium) tablet Take 400 mg by mouth. - valACYclovir (VALTREX) 500 mg tablet Take 1 tablet by mouth every afternoon. - escitalopram oxalate (LEXAPRO) 20 mg tablet Take 1 tablet by mouth every afternoon. - spironolactone-hctz 25/25 [...] every afternoon. Problem List As Of Date 09/13/2024 Noted Resolved Swelling of Knee Joint [M25.469] [...] weakness, bilateral [R29.898] 06/30/2024 Encounter Status:Closed by DEBRA LUNA on 09/26/24 [facility] Carbon dioxide, total [Moles /volume] in Serum or PlasmaOrdered By: Antonio Steele on 09-09-2024 CO2 [Moles/Vol] Carbon dioxide, tota l [Moles/volume] in Serum or Plasma 21.0-31.0 [facility] CO2 [Moles/Vol] 26.3 mmol/L Normal 21.0-31.0 [facility] Comment on above: Performed By: #### B MP, PT #### [facility] [address] Chloride [Moles/volume] in S ursula or PlasmaOrdered By: Antonio Steele on 09-09-2024 Chloride [Moles/Vol] Chloride [Moles/vol ume] in Serum or Plasma Low 98-107 [facility] Chloride [Moles/Vol] 96 mmol/L Low 98-107 [facility] Comment on above: Performed By: #### B MP, PT #### [facility] [address] ECG 12 lead ECGon 09-09-2024 ECG 12 lead ECG [facility] [place] [address] [place] [address] Electrocardiograph Report Signed Patient: Esme Steven MR#: [id number] : 1960 Acct:[id number] Age/Sex: 63 / M ADM Date: 09/09/24 Loc: Room: Type: [facility] Attending Dr: Antonio Steele MD Ordering Provider: Antonio Steele MD Date of Service: 09/09/2407/01/1012 ECG/ECG 12 [...] is now present Confirmed by Will Koch ([id number]) on 09/09/2024 11:28:31 AM Referred By: Electronically Signed By: Will Koch Transcribed By: MUS Signed By Will Koch MD 09/09/24 1128 Normal [facility] [facility] ECG post procedureon 025 ECG post procedure [facility] [place] [address] [place] [address] Electrocardiograph Report Signed Patient: Esme Steven MR#: [id number] : 1960 Acct:[id number] Age/Sex: 63 / M ADM Date: 09/09/24 Loc: PO Room: Type: [facility] Attending Dr: Antonio Steele MD Ordering Provider: Antonio Steele MD Date of Service: 09/09/24/ ECG/ECG post [...] in Lateral leads Confirmed by Ada Woodruff ([id number]) on 09/09/2024 5:08:22 PM Referred By: Electronically Signed By: Ada Woodruff Transcribed By: MUS Signed By Ada Woodruff MD 5 1708 Normal [facility] Potassium [Moles/volume] in Serum or PlasmaOrdered By: Antonio Steele on 09-09-2024 Potassium [Moles/Vol] Potassium [Moles/v olume] in Serum or Plasma 3.5-5.1 [facility] Potassium [Moles/Vol] 4.0 mmol/L Normal 3.5-5.1 [facility] Comment on above: Performed By: #### B MP, PT #### [address] Serum or plasma anion gap de terminationOrdered By: Antonio Steele on 09-09-2024 Anion gap [Moles/Vol] Serum or plasma an ion gap determination 6.0-15.0 [facility] Anion gap [Moles/Vol] 14.7 mmol/L Normal 6.0-15.0 [facility] Comment on above: Result Comment: PERF ORMED BY: [facility] [address] [place] [address] PATHOLOGIST COMMUNITY SERVICE WORKER MICHELE ALMARAZ M.D. Performed By: #### B MP, PT #### [facility] [address] Sodium [Moles/volume] in Ser um or PlasmaOrdered By: Antonio Steele on 09-09-2024 Sodium [Moles/Vol] Sodium [Moles/volume ] in Serum or Plasma Low 136-145 [facility] Sodium [Moles/Vol] 133 mmol/L Low 136-145 [facility] Comment on above: Performed By: #### B MP, PT #### [facility] [address] CNPNon 08-31-2024 CNPN Telephone (RADHA) ----- ESME STEVEN ([id number]) 1960 M Date Time Provider Department 08/31/24 [...] Idiopathic chronic gout of multiple sites 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 [Z79*01/05/2023 CHENCHO positive [R76.8] 01/05/2023 Bilateral hand swelling [M79.89] 01/05/2023 Chronic pain of both knees [M25.561, M25.562, G*03/05/2023 Leg weakness, bilateral [R29.898] 06/30/2024 Encounter Status:Closed by ILEANA GEORGE on 09/02/24 Normal [facility] ECG 12 [place] 08-22-2024 Atrial fibrillation with controlled rate with old inferior IN [facility] Work Phone: [facility] Work Phone: Alanine aminotransferase [En zymatic activity/volume] in Serum or PlasmaOrdered By: Lydia Connelly on 08-13-2024 ALT [Catalytic activity/Vol] Alanine aminotransferase [Enzymatic activity/volume] in Serum or Plasma [address] ALT [Catalytic activity/Vol] 86 U/L [address] Comment on above: Performed By: #### M G, CBC, CMP ####[address] Albumin [Mass/volume] in Ser um or Plasma by Bromocresol green (BCG) dye binding methoOrdered By: Lydia Connelly on 08-13-2024 Albumin BCG dye [Mass/Vol] Albumin [Mass/volume] in Serum or Plasma by Bromocresol green (BCG) dye binding metho 3.5-5.7 [facility] Albumin BCG dye [Mass/Vol] 3.5 g/dL 3.5-5.7 [facility] Alkaline phosphatase [Enzyma tic activity/volume] in Serum or PlasmaOrdered By: Lydia Connelly on 08-13-2024 ALP [Catalytic activity/Vol] Alkaline phosphatase [Enzymatic activity/volume] in Serum or Plasma 34-104 [facility] ALP [Catalytic activity/Vol] 73 U/L Normal 34-104 [facility] Comment on above: Performed By: #### M G, CBC, CMP ####[facility] [id number] [place] [address] Aspartate aminotransferase [ Enzymatic activity/volume] in Serum or PlasmaOrdered By: Lydia Connelly on 08-13-2024 AST [Catalytic activity/Vol] Aspartate aminotransferase [Enzymatic activity/volume] in Serum or Plasma 13-39 [facility] AST [Catalytic activity/Vol] 31 U/L Normal 13-39 [facility] Comment on above: Performed By: #### M G, CBC, CMP ####[facility] [id number] [place] [address] Basophils Auto (Bld) [#/Vol] Ordered By: Lydia Connelly on 08-13-2024 Basophils (Bld) [#/Vol] Automated basophil count 0.0-0.2 [facility] Basophils [#/volume] in Bloo d by Automated countOrdered By: Lydia Connelly on 08-13-2024 Basophils (Bld) [#/Vol] 0.1 10*3/uL Normal 0.0-0.2 [facility] Comment on above: Result Comment: PERF ORMED BY: [facility] [address] [place] [address] PATHOLOGIST COMMUNITY SERVICE WORKER OSCAR HAY M.D. Performed By: #### M G, CBC, CMP ####[facility] Basophils/100 WBC Auto (Bld) Ordered By: Lydia Connelly on 08-13-2024 Basophils/100 WBC (Bld) Automated basophil % . [facility] Basophils/100 leukocytes in Blood by Automated countOrdered By: Lydia Connelly on 08-13-2024 Basophils/100 WBC (Bld) 0.8 % Normal . [facility] Comment on above: Performed By: #### M G, CBC, CMP ####[facility] Bilirubin.total [Mass/volume ] in Serum or PlasmaOrdered By: Lydia Connelly on 08-13-2024 Bilirubin [Mass/Vol] Bilirubin.total [Mass/volume] in Serum or Plasma High 0.3-1.0 [facility] Comment on above: Samples from patient s who have taken Naproxen have shown spurious elevation in Total Bilirubin levels. A metabolite of Naproxen, O-desmethylnaproxen, has been shown to interfere with the Jendrassik-Grof method for measuring Total Bilirubin. Bilirubin [Mass/Vol] 1.4 mg/dL High 0.3-1.0 [facility] Comment on above: Samples from patient s [...] Performed By: #### M G, CBC, CMP ####[facility] [place] [id number] [facility] Calcium [Mass/volume] in Ser um or PlasmaOrdered By: Lydia Connelly on 08-13-2024 Calcium [Mass/Vol] Calcium [Mass/volume ] in Serum or Plasma 8.6-10.3 [facility] Calcium [Mass/Vol] 8.9 mg/dL Normal 8.6-10.3 [facility] Comment on above: Performed By: #### M G, CBC, CMP ####[address] Carbon dioxide, total [Moles /volume] in Serum or PlasmaOrdered By: Lydia Connelly on 08-13-2024 CO2 [Moles/Vol] Carbon dioxide, tota l [Moles/volume] in Serum or Plasma 21.0-31.0 [facility] CO2 [Moles/Vol] 25.4 mmol/L Normal 21.0-31.0 [facility] Comment on above: Performed By: #### M G, CBC, CMP ####[address] Chloride [Moles/volume] in S ursula or PlasmaOrdered By: Lydia Connelly on 08-13-2024 Chloride [Moles/Vol] Chloride [Moles/vol ume] in Serum or Plasma 98-107 [facility] Chloride [Moles/Vol] 102 mmol/L Normal 98-107 [facility] Comment on above: Performed By: #### M G, CBC, CMP ####[address] Complete Blood Count Auto Di ffon 08-13-2024 Mean Corpuscular HGB Conc 33.9 g/dL Normal 32.5-35.6 [facility] Comment on above: Performed By: #### M G, CBC, CMP ####[address] NRBC% 0.1 /100{WBC} Normal 0-0.5 [facility] Comment on above: Performed By: #### M G, CBC, CMP ####[address] Comprehensive Metabolic Pane jose 08-13-2024 Albumin [Mass/Vol] 3.5 g/dL Normal 3.5-5.7 [facility] Comment on above: Performed By: #### M G, CBC, CMP ####[facility] Creatinine Clr Calc Pharmacy 119.44 Normal [facility] Comment on above: Performed By: #### M G, CBC, CMP ####[facility] GFR/1.73 sq M.predicted MDRD (S/P/Bld) [Vol rate/Area] mL/min/{1.73_m2} Normal [facility] Comment on above: Performed By: #### M G, CBC, CMP ####[address] Creatinine [Mass/volume] in Serum or PlasmaOrdered By: Lydia Connelly on 08-13-2024 Creatinine [Mass/Vol] Creatinine [Mass/v olume] in Serum or Plasma 0.70-1.30 [facility] Creatinine [Mass/Vol] 0.76 mg/dL Normal 0.70-1.30 [facility] Comment on above: Performed By: #### M G, CBC, CMP ####[address] Eosinophils Auto (Bld) [#/Vo l]Ordered By: Lydia Connelly on 08-13-2024 Eosinophils (Bld) [#/Vol] Automated eosinophil count 0.0-0.45 [facility] Eosinophils [#/volume] in Bl ood by Automated countOrdered By: Lydia Connelly on 08-13-2024 Eosinophils (Bld) [#/Vol] 0.1 10*3/uL Normal 0.0-0.45 [facility] Comment on above: Performed By: #### M G, CBC, CMP ####[place] [address] [place] Eosinophils/100 WBC Auto (Bl d)Ordered By: Lydia Connelly on 08-13-2024 Eosinophils/100 WBC (Bld) Automated eosinophil % . [facility] Eosinophils/100 leukocytes i n Blood by Automated countOrdered By: Lydia Connelly on 08-13-2024 Eosinophils/100 WBC (Bld) 1.1 % Normal . [facility] Comment on above: Performed By: #### M G, CBC, CMP ####[facility] [id number] [address] Erythrocyte distribution wid th Auto (RBC) [Ratio]Ordered By: Lydia Connelly on 08-13-2024 Erythrocyte distribution width (RBC) [Ratio] Erythrocyte distribution width [Ratio] by Automated count 12.0-14.8 [facility] Erythrocyte distribution wid th [Ratio] by Automated countOrdered By: Lydia Connelly on 08-13-2024 Erythrocyte distribution width (RBC) [Ratio] 13.8 % Normal 12.0-14.8 [facility] Comment on above: Performed By: #### M G, CBC, CMP ####[facility] [id number] [place] [address] Erythrocytes [#/volume] in B lood by Automated countOrdered By: Lydia Connelly on 08-13-2024 RBC (Bld) [#/Vol] 4.79 10*6/uL Normal 3.90-5.60 [facility] Comment on above: Performed By: #### M G, CBC, CMP ####[address] Globulin Calc (S) [Mass/Vol] Ordered By: Lydia Connelly on 08-13-2024 Globulin (S) [Mass/Vol] Serum globulin measurement by calculation (mass/volume) [facility] Glucose [Mass/volume] in Ser um or PlasmaOrdered By: Lydia Connelly on 08-13-2024 Glucose [Mass/Vol] Glucose [Mass/volume ] in Serum or Plasma High 70-100 [facility] Comment on above: ADA recommended refe rence rangeRandom Glucose Reference Range is dependent on time and content of last meal. Glucose of more than 200 mg/dL in a nonstressed, ambulatory subject supports the diagnosis of Diabetes Mellitus. Glucose [Mass/Vol] 148 mg/dL High 70-100 [facility] Comment on above: ADA recommended refe rence rangeRandom Glucose Reference Range is dependent on time and content of last meal. Glucose of more than 200 mg/dL in a nonstressed, ambulatory subject supports the diagnosis of Diabetes Mellitus. Result Comment: [facility] Glucose Reference Range is dependent on time and content of last meal. Glucose of more than 200 mg/dL in a nonstressed, ambulatory subject supports the diagnosis of Diabetes Mellitus. ADA recommended reference range Performed By: #### M G, CBC, CMP ####[address] Hematocrit Auto (Bld) [Volum e fraction]Ordered By: Lydia Connelly on 08-13-2024 Hematocrit (Bld) [Volume fraction] Hematocrit [Volume Fraction] of Blood by Automated count High 38.8-50.0 [facility] Hematocrit [Volume Fraction] of Blood by Automated countOrdered By: Lydia Connelly on 08-13-2024 Hematocrit (Bld) [Volume fraction] 50.5 % High 38.8-50.0 [facility] Comment on above: Performed By: #### M G, CBC, CMP ####[address] Hemoglobin [Mass/volume] in BloodOrdered By: Lydia Connelly on 08-13-2024 Hemoglobin (Bld) [Mass/Vol] Hemoglobin [Mass/volume] in Blood High 13.0-17.0 [facility] Hemoglobin (Bld) [Mass/Vol] 17.1 g/dL High 13.0-17.0 [facility] Comment on above: Performed By: #### M G, CBC, CMP ####[address] Leukocytes [#/volume] correc collins for nucleated erythrocytes in Blood by Automated counOrdered By: Lydia Connelly on 08-13-2024 WBC corrected for nucl RBC Auto (Bld) [#/Vol] Leukocytes [#/volume] corrected for nucleated erythrocytes in Blood by Automated coun 4.1-10.5 [facility] WBC corrected for nucl RBC Auto (Bld) [#/Vol] 9.6 10*3/uL 4.1-10.5 [facility] Leukocytes [#/volume] in Blo od by Automated countOrdered By: Lydia Connelly on 08-13-2024 WBC (Bld) [#/Vol] 9.6 10*3/uL Normal 4.1-10.5 [facility] Comment on above: Performed By: #### M G, CBC, CMP ####[facility] [id number] Lymphocytes Auto (Bld) [#/Vo l]Ordered By: Lydia Connelly on 08-13-2024 Lymphocytes (Bld) [#/Vol] Lymphocytes [#/volume] in Blood by Automated count 1.00-4.8 [facility] Lymphocytes [#/volume] in Bl ood by Automated countOrdered By: Lydia Connelly on 08-13-2024 Lymphocytes (Bld) [#/Vol] 1.4 10*3/uL Normal 1.00-4.8 [facility] Comment on above: Performed By: #### M G, CBC, CMP ####[address] Lymphocytes/100 WBC Auto (Bl d)Ordered By: Lydia Connelly on 08-13-2024 Lymphocytes/100 WBC (Bld) Lymphocytes/100 leukocytes in Blood by Automated count . [facility] Lymphocytes/100 leukocytes i n Blood by Automated countOrdered By: Lydia Cnonelly on 08-13-2024 Lymphocytes/100 WBC (Bld) 15.1 % Normal . [facility] Comment on above: Performed By: #### M G, CBC, CMP ####[facility] [id number] [place] [address] MCH Auto (RBC) [Entitic mass ]Ordered By: Lydia Connelly on 08-13-2024 MCH (RBC) [Entitic mass] MCH [Entitic mass] by Automated count High 27.5-35.2 [facility] MCH [Entitic mass] by Automa collins countOrdered By: Lydia Connelly on 08-13-2024 MCH (RBC) [Entitic mass] 35.8 pg High 27.5-35.2 [facility] Comment on above: Performed By: #### M G, CBC, CMP ####[facility] [id number] MCHC Auto (RBC) [Mass/Vol]Or dered By: Lydia Connelly on 08-13-2024 MCHC (RBC) [Mass/Vol] MCHC [Mass/volume] by Automated count 32.5-35.6 [facility] MCHC (RBC) [Mass/Vol] 33.9 g/dL 32.5-35.6 [facility] MCV Auto (RBC) [Entitic vol] Ordered By: Lydia Connelly on 08-13-2024 MCV (RBC) [Entitic vol] MCV [Entitic volume] by Automated count High 83.5-101 [facility] MCV [Entitic volume] by Auto mated countOrdered By: Lydia Connelly on 08-13-2024 MCV (RBC) [Entitic vol] 105.5 fL High 83.5-101 [facility] Comment on above: Performed By: #### M G, CBC, CMP ####[address] Magnesium [Mass/volume] in S ursula or PlasmaOrdered By: Lydia Connelly on 08-13-2024 Magnesium [Mass/Vol] Magnesium [Mass/vol ume] in Serum or Plasma Low 1.9-2.7 [facility] Magnesium [Mass/Vol] 1.6 mg/dL Low 1.9-2.7 [facility] Comment on above: Result Comment: PERF ORMED BY: [facility] [address] [place] [address] PATHOLOGIST COMMUNITY SERVICE WORKER OSCAR HAY M.D. Performed By: #### M G, CBC, CMP ####[facility] [id number] [address] Monocytes Auto (Bld) [#/Vol] Ordered By: Lydia Connelly on 08-13-2024 Monocytes (Bld) [#/Vol] Automated blood monocyte count 0.0-0.8 [facility] Monocytes [#/volume] in Bloo d by Automated countOrdered By: Lydia Connelly on 08-13-2024 Monocytes (Bld) [#/Vol] 0.7 10*3/uL Normal 0.0-0.8 [facility] Comment on above: Performed By: #### M G, CBC, CMP ####[facility] [id number] Monocytes/100 WBC Auto (Bld) Ordered By: Lydia Connelly on 08-13-2024 Monocytes/100 WBC (Bld) Automated monocyte % . [facility] Monocytes/100 leukocytes in Blood by Automated countOrdered By: Lydia Connelly on 08-13-2024 Monocytes/100 WBC (Bld) 7.6 % Normal . [facility] Comment on above: Performed By: #### M G, CBC, CMP ####[facility] [id number] [address] NM kacie perf SPECT rest stron 08-13-2024 NM kacie perf SPECT rest str [facility] [place] [address] Nuclear Medicine Report Signed Patient: Esme Steven MR#: [id number] : 1960 Acct:[id number] Age/Sex: 63 / M ADM Date: 08/11/24 Loc: Room: [address] [place] [address] Type: ADM INOo Attending Dr: Lydia Connelly MD Copies to: Lala Arce MD, [facility] MD Lydia Guajardo MD Ordering Provider: Lala Arce MD, [facility] Date of Service: 08/12/24 NM/NM kacie perf [...] Woodruff M.D. 08/13/2024 1:02 PM Dictation Location: [place] [address] Transcribed By: GWEN 08/13/24 1302 Dictated By: Ada Woodruff MD 08/13/24 1258 Signed By: 08/13/24 1302 Normal [facility] Neutrophils Auto (Bld) [#/Vo l]Ordered By: Lydia Connelly on 08-13-2024 Neutrophils (Bld) [#/Vol] Neutrophils [#/volume] in Blood by Automated count 1.8-7.7 [facility] Neutrophils [#/volume] in Bl ood by Automated countOrdered By: Lydia Connelly on 08-13-2024 Neutrophils (Bld) [#/Vol] 7.2 10*3/uL Normal 1.8-7.7 [facility] Comment on above: Performed By: #### M G, CBC, CMP ####[facility] [id number] Neutrophils/100 WBC Auto (Bl d)Ordered By: Lydia Connelly on 08-13-2024 Neutrophils/100 WBC (Bld) Automated neutrophil % . [facility] Neutrophils/100 leukocytes i n Blood by Automated countOrdered By: Lydia Connelly on 08-13-2024 Neutrophils/100 WBC (Bld) 75.4 % Normal . [facility] Comment on above: Performed By: #### M G, CBC, CMP ####[facility] [id number] [place] [address] No Panel InformationOrdered By: Lydia Connelly on 08-13-2024 Estimated GFR (CKD-EPI) > 60.0 mL/Min [facility] Creatinine Clearance (Chem 119.44 [facility] Nucleated erythrocytes [Pres ence] in Blood by Automated countOrdered By: Lydia Connelly on 08-13-2024 Nucleated RBC Auto Ql (Bld) Nucleated erythrocytes [Presence] in Blood by Automated count 0-0.5 [facility] Nucleated RBC Auto Ql (Bld) 0.1 /100{WBC} 0-0.5 [facility] Platelet mean volume Auto (B ld) [Entitic vol]Ordered By: Lydia Connelly on 08-13-2024 Platelet mean volume (Bld) [Entitic vol] Platelet mean volume [Entitic volume] in Blood by Automated count 6.6-10.1 [facility] Platelet mean volume [Entiti c volume] in Blood by Automated countOrdered By: Lydia Connelly on 08-13-2024 Platelet mean volume (Bld) [Entitic vol] 9.1 fL Normal 6.6-10.1 [facility] Comment on above: Performed By: #### M G, CBC, CMP ####[facility] [id number] Platelets Auto (Bld) [#/Vol] Ordered By: Lydia Connelly on 08-13-2024 Platelets (Bld) [#/Vol] Platelets [#/volume] in Blood by Automated count 150-450 [facility] Platelets [#/volume] in Bloo d by Automated countOrdered By: Lydia Connelly on 08-13-2024 Platelets (Bld) [#/Vol] 160 10*3/uL Normal 150-450 [facility] Comment on above: Performed By: #### M G, CBC, CMP ####[facility] [id number] [address] Potassium [Moles/volume] in Serum or PlasmaOrdered By: Lydia Connelly on 08-13-2024 Potassium [Moles/Vol] Potassium [Moles/v olume] in Serum or Plasma 3.5-5.1 [facility] Comment on above: Hemolysis is present at a level that could interfere with the result.Contact lab if redraw is required Potassium [Moles/Vol] 3.9 mmol/L Normal 3.5-5.1 [facility] Comment on above: Hemolysis is present at a level that could interfere with the result.Contact lab if redraw is required Result Comment: Hemo lysis is present at a level that could interfere with the result. Contact lab if redraw is required Performed By: #### M G, CBC, CMP ####[facility] [id number] Protein [Mass/volume] in Ser um or PlasmaOrdered By: Lydia Connelly on 08-13-2024 Protein [Mass/Vol] Protein [Mass/volume ] in Serum or Plasma Low 6.4-8.9 [facility] Protein [Mass/Vol] 6.1 g/dL Low 6.4-8.9 [facility] Comment on above: Performed By: #### M G, CBC, CMP ####[facility] [id number] [address] RBC Auto (Bld) [#/Vol]Ordere d By: Lydia Connelly on 08-13-2024 RBC (Bld) [#/Vol] Erythrocytes [#/volu me] in Blood by Automated count 3.90-5.60 [facility] Serum globulin measurement b y calculation (mass/volume)Ordered By: Lydia Connelly on 08-13-2024 Globulin (S) [Mass/Vol] 2.6 g/dL Normal [facility] Comment on above: Performed By: #### M G, CBC, CMP ####[facility] [id number] [address] Serum or plasma albumin/glob ulin mass ratioOrdered By: Lydia Connelly on 08-13-2024 Albumin/Globulin [Mass ratio] Serum or plasma albumin/globulin mass ratio [facility] Albumin/Globulin [Mass ratio] 1.3 {ratio} [facility] Comment on above: Performed By: #### M G, CBC, CMP ####[place] [id number] [facility] Serum or plasma anion gap de terminationOrdered By: Lydia Connelly on 08-13-2024 Anion gap [Moles/Vol] Serum or plasma an ion gap determination 6.0-15.0 [facility] Anion gap [Moles/Vol] 11.5 mmol/L Normal 6.0-15.0 [facility] Comment on above: Performed By: #### M G, CBC, CMP ####[address] Sodium [Moles/volume] in Ser um or PlasmaOrdered By: Lydia Connelly on 08-13-2024 Sodium [Moles/Vol] Sodium [Moles/volume ] in Serum or Plasma Low 136-145 [facility] Sodium [Moles/Vol] 135 mmol/L Low 136-145 [facility] Comment on above: Performed By: #### M G, CBC, CMP ####[address] Urea nitrogen [Mass/volume] in Serum or PlasmaOrdered By: Lydia Connelly on 08-13-2024 Urea nitrogen [Mass/Vol] Urea nitrogen [Mass/volume] in Serum or Plasma - [facility] Urea nitrogen [Mass/Vol] 19 mg/dL Normal - [facility] Comment on above: Performed By: #### M G, CBC, CMP ####[address] WBC Auto (Bld) [#/Vol]Ordere d By: Lydia Connelly on 08-13-2024 WBC (Bld) [#/Vol] Leukocytes [#/volume ] in Blood by Automated count 4.1-10.5 [facility] A1C with Estimated Average G luon 08-12-2024 Glucose [Mass/Vol] 174 mg/dL Normal [facility] Comment on above: Result Comment: PERF ORMED BY: [facility] [address] [place] [address] PATHOLOGIST COMMUNITY SERVICE WORKER OSCAR HYA M.D. Performed By: #### C MP, A1C WTH eA, CBC, LIPID, MG ####[facility] [id number] [address] Blood estimated average gluc ose determination by estimation from glycated hemoglobinOrdered By: Lydia Connelly on 08-12-2024 Average glucose Estimated from glycated hemoglobin (Bld) [Mass/Vol] Glucose mean value [Mass/volume] in Blood Estimated from glycated hemoglobin [facility] Average glucose Estimated from glycated hemoglobin (Bld) [Mass/Vol] 174 mg/dL [facility] Cholesterol [Mass/volume] in Serum or PlasmaOrdered By: Lydia Connelly on 08-12-2024 Cholesterol [Mass/Vol] Cholesterol [Mass /volume] in Serum or Plasma 140-200 [facility] Comment on above: Chol less than 200 m g/dl low riskChol 201-239 mg/dl borderline riskChol 240 mg/dl and greater high risk Cholesterol [Mass/Vol] 167 mg/dL Normal 140-200 [facility] Comment on above: Chol less than 200 m g/dl low riskChol 201-239 mg/dl borderline riskChol 240 mg/dl and greater high risk Result Comment: Chol less than 200 mg/dl low risk Chol 201-239 mg/dl borderline risk Chol 240 mg/dl and greater high risk Performed By: #### C MP, A1C WTH eA, CBC, LIPID, MG ####[facility] [id number] [place] [id number] [facility] Cholesterol in HDL [Mass/vol ume] in Serum or PlasmaOrdered By: Lydia Connelly on 08-12-2024 Cholesterol in HDL [Mass/Vol] Serum or plasma high density lipoprotein (HDL) cholesterol measurement [facility] Comment on above: HDL CHOL ATP-III CLA SSIFICATION Cardiovascular RiskHDL > or equal to 60 mg/dL LOWHDL < 40 mg/dL HIGH Cholesterol in HDL [Mass/Vol] 45 mg/dL Normal [facility] Comment on above: HDL CHOL ATP-III CLA SSIFICATION Cardiovascular RiskHDL > or equal to 60 mg/dL LOWHDL < 40 mg/dL HIGH Result Comment: HDL CHOL ATP-III CLASSIFICATION Cardiovascular Risk HDL > or equal to 60 mg/dL LOW HDL < 40 mg/dL HIGH Performed By: #### C MP, A1C WTH eA, CBC, LIPID, MG ####[facility] [place] [id number] [facility] Cholesterol in LDL Calc [Mas s/Vol]Ordered By: Lydia Connelly on 08-12-2024 Cholesterol in LDL [Mass/Vol] Cholesterol in LDL [Mass/volume] in Serum or Plasma by calculation 0 [facility] Comment on above: LDL ATP III CLASSIFI CATIONLDL less than 100 mg/dL OptimalLDL 100-129 mg/dL Near or above optimalLDL 130-159 mg/dL Borderline highLDL 160-189 mg/dL HighLDL greater than 189 mg/dL Very high Cholesterol in LDL [Mass/Vol] 86 mg/dL 0100 [facility] Comment on above: LDL ATP III CLASSIFI CATIONLDL less than 100 mg/dL OptimalLDL 100-129 mg/dL Near or above optimalLDL 130-159 mg/dL Borderline highLDL 160-189 mg/dL HighLDL greater than 189 mg/dL Very high Cholesterol in VLDL Calc [Ma ss/Vol]Ordered By: Lydia Connelly on 08-12-2024 Cholesterol in VLDL [Mass/Vol] Cholesterol in VLDL [Mass/volume] in Serum or Plasma by calculation [facility] Cholesterol in VLDL [Mass/Vol] 35 mg/dL [facility] Complete Blood Count Auto Di ffon 08-12-2024 Basophils (Bld) [#/Vol] 0.1 10*3/uL Normal 0.0-0.2 [facility] Comment on above: Result Comment: PERF ORMED BY: [facility] [address] [place] [address] PATHOLOGIST COMMUNITY SERVICE WORKER OSCAR HAY M.D. Performed By: #### C MP, A1C WTH eA, CBC, LIPID, MG ####[facility] Basophils/100 WBC (Bld) 0.8 % Normal . [facility] Comment on above: Performed By: #### C MP, A1C WTH eA, CBC, LIPID, MG ####[address] Eosinophils (Bld) [#/Vol] 0.1 10*3/uL Normal 0.0-0.45 [facility] Comment on above: Performed By: #### C MP, A1C WTH eA, CBC, LIPID, MG ####[address] Eosinophils/100 WBC (Bld) 0.7 % Normal . [facility] Comment on above: Performed By: #### C MP, A1C WTH eA, CBC, LIPID, MG ####[address] Erythrocyte distribution width (RBC) [Ratio] 13.7 % Normal 12.0-14.8 [facility] Comment on above: Performed By: #### C MP, A1C WTH eA, CBC, LIPID, MG ####[address] Hematocrit (Bld) [Volume fraction] 50.3 % High 38.8-50.0 [facility] Comment on above: Performed By: #### C MP, A1C WTH eA, CBC, LIPID, MG ####[address] Hemoglobin (Bld) [Mass/Vol] 17.3 g/dL High 13.0-17.0 [facility] Comment on above: Performed By: #### C MP, A1C WTH eA, CBC, LIPID, MG ####[address] Lymphocytes (Bld) [#/Vol] 1.5 10*3/uL Normal 1.00-4.8 [facility] Comment on above: Performed By: #### C MP, A1C WTH eA, CBC, LIPID, MG ####[address] Lymphocytes/100 WBC (Bld) 14.1 % Normal . [facility] Comment on above: Performed By: #### C MP, A1C WTH eA, CBC, LIPID, MG ####[address] MCH (RBC) [Entitic mass] 35.7 pg High 27.5-35.2 [facility] Comment on above: Performed By: #### C MP, A1C WTH eA, CBC, LIPID, MG ####[address] MCV (RBC) [Entitic vol] 103.6 fL High 83.5-101 [facility] Comment on above: Performed By: #### C MP, A1C WTH eA, CBC, LIPID, MG ####[address] Mean Corpuscular HGB Conc 34.5 g/dL Normal 32.5-35.6 [facility] Comment on above: Performed By: #### C MP, A1C WTH eA, CBC, LIPID, MG ####[address] Monocytes (Bld) [#/Vol] 0.5 10*3/uL Normal 0.0-0.8 [facility] Comment on above: Performed By: #### C MP, A1C WTH eA, CBC, LIPID, MG ####[address] Monocytes/100 WBC (Bld) 5.0 % Normal . [facility] Comment on above: Performed By: #### C MP, A1C WTH eA, CBC, LIPID, MG ####[address] Neutrophils (Bld) [#/Vol] 8.2 10*3/uL High 1.8-7.7 [facility] Comment on above: Performed By: #### C MP, A1C WTH eA, CBC, LIPID, MG ####[address] Neutrophils/100 WBC (Bld) 79.4 % Normal . [facility] Comment on above: Performed By: #### C MP, A1C WTH eA, CBC, LIPID, MG ####[address] [place] [address] [place] NRBC% 0.1 /100{WBC} Normal 0-0.5 [facility] Comment on above: Performed By: #### C MP, A1C WTH eA, CBC, LIPID, MG ####[place] [id number] [facility] Platelet mean volume (Bld) [Entitic vol] 9.1 fL Normal 6.6-10.1 The [facility] Comment on above: Performed By: #### C MP, A1C WTH eA, CBC, LIPID, MG ####[place] [id number] [facility] Platelets (Bld) [#/Vol] 169 10*3/uL Normal 150-450 [facility] Comment on above: Performed By: #### C MP, A1C WTH eA, CBC, LIPID, MG ####[address] RBC (Bld) [#/Vol] 4.86 10*6/uL Normal 3.90-5.60 [facility] Comment on above: Performed By: #### C MP, A1C WTH eA, CBC, LIPID, MG ####[address] WBC (Bld) [#/Vol] 10.3 10*3/uL Normal 4.1-10.5 [facility] Comment on above: Performed By: #### C MP, A1C WTH eA, CBC, LIPID, MG ####[place] [id number] [facility] Comprehensive Metabolic Pane jose 08-12-2024 Albumin [Mass/Vol] 3.9 g/dL Normal 3.5-5.7 [facility] Comment on above: Performed By: #### C MP, A1C WTH eA, CBC, LIPID, MG ####[place] [id number] [facility] Albumin/Globulin [Mass ratio] 1.3 {ratio} Normal [facility] Comment on above: Performed By: #### C MP, A1C WTH eA, CBC, LIPID, MG ####[place] [id number] [place] [address] [facility] ALP [Catalytic activity/Vol] 84 U/L Normal 34-104 [facility] Comment on above: Performed By: #### C MP, A1C WTH eA, CBC, LIPID, MG ####[id number] [place] [address] [facility] ALT [Catalytic activity/Vol] 112 U/L High 7-52 [facility] Comment on above: Performed By: #### C MP, A1C WTH eA, CBC, LIPID, MG ####[place] [id number] [place] [id number] [facility] Anion gap [Moles/Vol] 12.1 mmol/L Normal 6.0-15.0 Th e [facility] Comment on above: Performed By: #### C MP, A1C WTH eA, CBC, LIPID, MG ####[place] [id number] [place] [id number] [facility] AST [Catalytic activity/Vol] 22 U/L Normal 13-39 [facility] Comment on above: Performed By: #### C MP, A1C WTH eA, CBC, LIPID, MG ####[place] [id number] [place] [id number] [facility] Bilirubin [Mass/Vol] 1.6 mg/dL High 0.3-1.0 [facility] Comment on above: Result Comment: Samp les from patients who have taken Naproxen have shown spurious elevation in Total Bilirubin levels. A metabolite of Naproxen, O-desmethylnaproxen, has been shown to interfere with the Jendrassik-Grof method for measuring Total Bilirubin. Performed By: #### C MP, A1C WTH eA, CBC, LIPID, MG ####[place] [id number] [place] [id number] [facility] Calcium [Mass/Vol] 9.6 mg/dL Normal 8.6-10.3 [facility] Comment on above: Performed By: #### C MP, A1C WTH eA, CBC, LIPID, MG ####[place] [address] Chloride [Moles/Vol] 99 mmol/L Normal 98-107 [facility] Comment on above: Performed By: #### C MP, A1C WTH eA, CBC, LIPID, MG ####[address] CO2 [Moles/Vol] 27.7 mmol/L Normal 21.0-31.0 The [facility] Comment on above: Performed By: #### C MP, A1C WTH eA, CBC, LIPID, MG ####[address] Creatinine [Mass/Vol] 0.80 mg/dL Normal 0.70-1.30 [facility] Comment on above: Performed By: #### C MP, A1C WTH eA, CBC, LIPID, MG ####[address] Creatinine Clr Calc Pharmacy 97.08 Normal [facility] Comment on above: Performed By: #### C MP, A1C WTH eA, CBC, LIPID, MG ####[address] GFR/1.73 sq M.predicted MDRD (S/P/Bld) [Vol rate/Area] mL/min/{1.73_m2} Normal [facility] Comment on above: Performed By: #### C MP, A1C WTH eA, CBC, LIPID, MG ####[address] Globulin (S) [Mass/Vol] 2.9 g/dL Normal [facility] Comment on above: Performed By: #### C MP, A1C WTH eA, CBC, LIPID, MG ####[address] Glucose [Mass/Vol] 153 mg/dL High 70-100 [facility] Comment on above: Result Comment: [facility] Glucose Reference Range is dependent on time and content of last meal. Glucose of more than 200 mg/dL in a nonstressed, ambulatory subject supports the diagnosis of Diabetes Mellitus. ADA recommended reference range Performed By: #### C MP, A1C WTH eA, CBC, LIPID, MG ####[address] Potassium [Moles/Vol] 3.8 mmol/L Normal 3.5-5.1 [facility] Comment on above: Performed By: #### C MP, A1C WTH eA, CBC, LIPID, MG ####[address] Protein [Mass/Vol] 6.8 g/dL Normal 6.4-8.9 [facility] Comment on above: Performed By: #### C MP, A1C WTH eA, CBC, LIPID, MG ####[address] Sodium [Moles/Vol] 135 mmol/L Low 136-145 [facility] Comment on above: Performed By: #### C MP, A1C WTH eA, CBC, LIPID, MG ####[address] Urea nitrogen [Mass/Vol] 13 mg/dL Normal 7-25 [facility] Comment on above: Performed By: #### C MP, A1C WTH eA, CBC, LIPID, MG ####[address] Hemoglobin A1c/Hemoglobin.to nahid in BloodOrdered By: Lydia Connelly on 08-12-2024 HbA1c (Bld) [Mass fraction] Hemoglobin A1c percentage High 4.3-5.6 [facility] Comment on above: Increased risk for d iabetes: 5.7 - 6.4diabetes: >6.4glycemic control for adults with diabetes: <7.0 HbA1c (Bld) [Mass fraction] 7.7 % High 4.3-5.6 [facility] Comment on above: Increased risk for d iabetes: 5.7 - 6.4diabetes: >6.4glycemic control for adults with diabetes: <7.0 Result Comment: Incr eased risk for diabetes: 5.7 - 6.4 diabetes: >6.4 glycemic control for adults with diabetes: <7.0 Performed By: #### C MP, A1C WTH eA, CBC, LIPID, MG ####[facility] Lipid Panelon 08-12-2024 LDL Cholesterol,Calculated 86 mg/dL Normal 0-100 [facility] Comment on above: Result Comment: LDL ATP III CLASSIFICATION LDL less than 100 mg/dL Optimal LDL 100-129 mg/dL Near or above optimal LDL 130-159 mg/dL Borderline high LDL 160-189 mg/dL High LDL greater than 189 mg/dL Very high Performed By: #### C MP, A1C WTH eA, CBC, LIPID, MG ####[place] [id number] Triglyceride w/Reflex 179 mg/dL High 0-149 [facility] Comment on above: Result Comment: TRIG ATP III CLASSIFICATION TRIG less than 150 mg/dL Normal TRIG 150-199 mg/dL Borderline high TRIG 200-500 mg/dL High TRIG greater than 500 mg/dL Very high Standard traceable to the Center for Disease Conrtrol and Prevention (CDC) test method. Performed By: #### C MP, A1C WTH eA, CBC, LIPID, MG ####[place] [id number] VLDL CHOLESTEROL 35 mg/dL Normal The [facility] Comment on above: Performed By: #### C MP, A1C WTH eA, CBC, LIPID, MG ####[place] [id number] Magnesiumon 08-12-2024 Magnesium [Mass/Vol] 1.5 mg/dL Low 1.9-2.7 [facility] Comment on above: Performed By: #### C MP, A1C WTH eA, CBC, LIPID, MG ####[place] [id number] Serum or plasma total choles terol/high density lipoprotein (HDL) cholesterol mass ratOrdered By: Lydia Connelly on 08-12-2024 Cholesterol.total/Chol esterol in HDL [Mass ratio] Serum or plasma total cholesterol/high density lipoprotein (HDL) cholesterol mass rat <5.0 [facility] Cholesterol.total/Chol esterol in HDL [Mass ratio] 3.7 {ratio} Normal <5.0 [facility] Comment on above: Result Comment: PERF ORMED BY: [facility] [address] [place] [address] PATHOLOGIST COMMUNITY SERVICE WORKER OSCAR HAY M.D. Performed By: #### C MP, A1C WTH eA, CBC, LIPID, MG ####[facility] [id number] [place] [address] [facility] Triglyceride [Mass/volume] i n Serum or PlasmaOrdered By: Lydia Connelly on 08-12-2024 Triglyceride [Mass/Vol] Triglyceride [Mass/volume] in Serum or Plasma High 0-149 [facility] Comment on above: TRIG ATP III CLASSIF ICATIONTRIG less than 150 mg/dL NormalTRIG 150-199 mg/dL Borderline highTRIG 200-500 mg/dL High TRIG greater than 500 mg/dL Very highStandard traceable to the Center for Disease Conrtrol and Prevention (CDC) test method. Triglyceride [Mass/Vol] 179 mg/dL High 0-149 [facility] Comment on above: TRIG ATP III CLASSIF ICATIONTRIG less than 150 mg/dL NormalTRIG 150-199 mg/dL Borderline highTRIG 200-500 mg/dL High TRIG greater than 500 mg/dL Very highStandard traceable to the Center for Disease Conrtrol and Prevention (CDC) test method. Troponin I High Sensitivityo n 08-12-2024 Troponin I High Sensitivity 17 Normal 0-20 [facility] Comment on above: Result Comment: The Troponin units of report have been changed to meet the Chest Pain Accreditation requirement, element EC5.M1l2. Troponin units are changed from pg/ml to ng/L. Also, the decimal is removed and results are in whole numbers. PERFORMED BY: [facility] [address] [place] [address] PATHOLOGIST COMMUNITY SERVICE WORKER OSCAR HAY M.D. Performed By: #### H S TROP ####[address] [id number] [place] [address] [facility] Troponin I.cardiac [Mass/vol ume] in Serum or Plasma by Detection limit <= 0.01 ng/Ordered By: Lydia Connelly on 08-12-2024 Troponin I.cardiac DL <= 0.01 ng/mL [Mass/Vol] Troponin I.cardiac [Mass/volume] in Serum or Plasma by Detection limit <= 0.01 ng/ [address] Comment on above: The Troponin units o f report have been changed to meet the Chest Pain Accreditation requirement, element EC5.M1l2. Troponin units are changed from pg/ml to ng/L. Also, the decimal is removed and results are in whole numbers. Troponin I.cardiac [Mass/vol ume] in Serum or Plasma by Detection limit <= 0.01 ng/mLOrdered By: Lydia Connelly on 08-12-2024 Troponin I.cardiac DL <= 0.01 ng/mL [Mass/Vol] 17 ng/L [address] Comment on above: The Troponin units o f report have been changed to meet the Chest Pain Accreditation requirement, element EC5.M1l2. Troponin units are changed from pg/ml to ng/L. Also, the decimal is removed and results are in whole numbers. US venous duplex LE BIon US venous duplex [facility] [place] [address] Ultrasound Report Signed Patient: Esme Steven MR#: [id number] : 1960 Acct:[id number] Age/Sex: 63 / M ADM Date: 08/11/24 Loc: Room: [address] [place] [address] Type: ADM INOo Attending Dr: Lydia Connelly [...] Hannah M.D. 08/12/2024 3:12 PM Dictation Location: [place] [address] Tech: Serena Medina Transcribed By: GWEN 08/12/241511 Dictated By: Matt Hannah MD 08/12/241511 Signed By: 08/12/241511 Normal [facility] BNP ser/plasOrdered By: Kristel Grande on 08-11-2024 Natriuretic peptide B (Bld) [Mass/Vol] 514.0 pg/mL High 5-100 [facility] Comment on above: Result Comment: PERF ORMED BY: [place] [address] PATHOLOGIST COMMUNITY SERVICE WORKER OSCAR HAY M.D. Performed By: #### B MP, PT #### [address] Basic Metabolic Panelon 05-0 Anion gap [Moles/Vol] 11.8 mmol/L Normal 6.0-15.0 [facility] Comment on above: Performed By: #### B MP, PT #### [address] Calcium [Mass/Vol] 9.1 mg/dL Normal 8.6-10.3 [facility] Comment on above: Performed By: #### B MP, PT #### [facility] [address] [place] [address] [place] Chloride [Moles/Vol] 100 mmol/L Normal 98-107 [facility] Comment on above: Performed By: #### B MP, PT #### [facility] [address] [place] [id number] [facility] CO2 [Moles/Vol] 26.2 mmol/L Normal 21.0-31.0 [facility] Comment on above: Performed By: #### B MP, PT #### [address] Creatinine [Mass/Vol] 0.74 mg/dL Normal 0.70-1.30 [facility] Comment on above: Performed By: #### B MP, PT #### [address] Creatinine Clr Calc Pharmacy 124.04 Normal [facility] Comment on above: Result Comment: PERF ORMED BY: [place] [address] PATHOLOGIST COMMUNITY SERVICE WORKER OSCAR HAY M.D. Performed By: #### B MP, PT #### [address] GFR/1.73 sq M.predicted MDRD (S/P/Bld) [Vol rate/Area] mL/min/{1.73_m2} Normal [facility] Comment on above: Performed By: #### B MP, PT #### [address] Glucose [Mass/Vol] 164 mg/dL High 70-100 [facility] Comment on above: Result Comment: [facility] Glucose Reference Range is dependent on time and content of last meal. Glucose of more than 200 mg/dL in a nonstressed, ambulatory subject supports the diagnosis of Diabetes Mellitus. ADA recommended reference range Performed By: #### B MP, PT #### [address] Potassium [Moles/Vol] 4.0 mmol/L Normal 3.5-5.1 [facility] Comment on above: Result Comment: Hemo lysis is present at a level that could interfere with the result. Contact lab if redraw is required Performed By: #### B MP, PT #### [address] Sodium [Moles/Vol] 134 mmol/L Low 136-145 [facility] Comment on above: Performed By: #### B MP, PT #### [place] [address] [place] Urea nitrogen [Mass/Vol] 12 mg/dL Normal 7-25 [facility] Comment on above: Performed By: #### B MP, PT #### [place] [address] [place] Basophils Auto (Bld) [#/Vol] Ordered By: Winnie Grande on 08-11-2024 Basophils (Bld) [#/Vol] Automated basophil count 0.0-0.2 [facility] Basophils/100 WBC Auto (Bld) Ordered By: Winnie Grande on 08-11-2024 Basophils/100 WBC (Bld) Automated basophil % . [facility] Calcium [Mass/volume] in Ser um or PlasmaOrdered By: Winnie Grande on 08-11-2024 Calcium [Mass/Vol] Calcium [Mass/volume ] in Serum or Plasma 8.6-10.3 [facility] Carbon dioxide, total [Moles /volume] in Serum or PlasmaOrdered By: Winnie Grande on 08-11-2024 CO2 [Moles/Vol] Carbon dioxide, tota l [Moles/volume] in Serum or Plasma 21.0-31.0 [facility] Chloride [Moles/volume] in S ursula or PlasmaOrdered By: Winnie Grande on 08-11-2024 Chloride [Moles/Vol] Chloride [Moles/vol ume] in Serum or Plasma 98-107 [facility] Complete Blood Count Auto Di ffon 08-11-2024 Basophils (Bld) [#/Vol] 0.0 10*3/uL Normal 0.0-0.2 [facility] Comment on above: Result Comment: PERF ORMED BY: [place] [address] PATHOLOGIST COMMUNITY SERVICE WORKER OSCAR HAY M.D. Performed By: #### B MP, PT #### [address] Basophils/100 WBC (Bld) 0.1 % Normal . [facility] Comment on above: Performed By: #### B MP, PT #### [place] [address] [place] Eosinophils (Bld) [#/Vol] 0.0 10*3/uL Normal 0.0-0.45 [facility] Comment on above: Performed By: #### B MP, PT #### [address] Eosinophils/100 WBC (Bld) 0.3 % Normal . [facility] Comment on above: Performed By: #### B MP, PT #### [address] Erythrocyte distribution width (RBC) [Ratio] 13.8 % Normal 12.0-14.8 [facility] Comment on above: Performed By: #### B MP, PT #### [address] Hematocrit (Bld) [Volume fraction] 45.5 % Normal 38.8-50.0 [facility] Comment on above: Performed By: #### B MP, PT #### [address] Hemoglobin (Bld) [Mass/Vol] 15.5 g/dL Normal 13.0-17.0 [facility] Comment on above: Performed By: #### B MP, PT #### [address] Lymphocytes (Bld) [#/Vol] 0.9 10*3/uL Low 1.00-4.8 [facility] Comment on above: Performed By: #### B MP, PT #### [address] Lymphocytes/100 WBC (Bld) 6.3 % Normal . [facility] Comment on above: Performed By: #### B MP, PT #### [address] MCH (RBC) [Entitic mass] 35.4 pg High 27.5-35.2 [facility] Comment on above: Performed By: #### B MP, PT #### [address] MCV (RBC) [Entitic vol] 104.0 fL High 83.5-101 [facility] Comment on above: Performed By: #### B MP, PT #### [address] Mean Corpuscular HGB Conc 34.1 g/dL Normal 32.5-35.6 [facility] Comment on above: Performed By: #### B MP, PT #### [address] Monocytes (Bld) [#/Vol] 0.8 10*3/uL Normal 0.0-0.8 [facility] Comment on above: Performed By: #### B MP, PT #### [address] Monocytes/100 WBC (Bld) 19.81 % Normal 0.00-20.00 [facility] Comment on above: Performed By: #### B MP, PT #### [address] Monocytes/100 WBC (Bld) 5.5 % Normal . [facility] Comment on above: Performed By: #### B MP, PT #### [address] Neutrophils (Bld) [#/Vol] 12.0 10*3/uL High 1.8-7.7 [facility] Comment on above: Performed By: #### B MP, PT #### [address] Neutrophils/100 WBC (Bld) 87.8 % Normal . [facility] Comment on above: Performed By: #### B MP, PT #### [address] NRBC% 0.1 /100{WBC} Normal 0-0.5 [facility] Comment on above: Performed By: #### B MP, PT #### [address] Platelet mean volume (Bld) [Entitic vol] 8.9 fL Normal 6.6-10.1 [facility] Comment on above: Performed By: #### B MP, PT #### [facility] [address] Platelets (Bld) [#/Vol] 146 10*3/uL Low 150-450 [facility] Comment on above: Performed By: #### B MP, PT #### [address] RBC (Bld) [#/Vol] 4.38 10*6/uL Normal 3.90-5.60 [facility] Comment on above: Performed By: #### B MP, PT #### [facility] [address] WBC (Bld) [#/Vol] 13.6 10*3/uL High 4.1-10.5 [facility] Comment on above: Performed By: #### B MP, PT #### [address] Creatine kinase [Enzymatic a ctivity/volume] in Serum or PlasmaOrdered By: Winnie Grande on 08-11-2024 CK [Catalytic activity/Vol] Creatine kinase [Enzymatic activity/volume] in Serum or Plasma Low 30-223 [facility] CK [Catalytic activity/Vol] 15 U/L Low 30-223 [facility] Comment on above: Performed By: #### B MP, PT #### [place] [address] [place] Creatinine [Mass/volume] in Serum or PlasmaOrdered By: Winnie Grande on 08-11-2024 Creatinine [Mass/Vol] Creatinine [Mass/v olume] in Serum or Plasma 0.70-1.30 [facility] ECG 12 lead ECGon 08-11-2024 ECG 12 lead ECG [facility] [place] [address] Electrocardiograph Report Signed Patient: Esme Steven MR#: [id number] : 1960 Acct:[id number] Age/Sex: 63 / M ADM Date: 08/11/24 Loc: Room: [address] [place] [address] Type: ADM INOo Attending Dr: Lydia Connelly [...] By Winnie Grande DO 1949 Normal [facility] ECG 12 lead ECG [facility] [place] [address] Electrocardiograph Report Signed Patient: Esme Steven MR#: [id number] : 1960 Acct:[id number] Age/Sex: 63 / M ADM Date: 08/11/24 Loc: Room: [address] [place] [address] Type: ADM INOo Attending Dr: Lydia Connelly [...] By Winnie Grande DO 1947 Normal [facility] echo transthoracicon [facility] echo transthoracic [facility] [place] [address] [place] [address] Echocardiogram Signed Patient: Esme Steven MR#: [id number] : 1960 Acct:[id number] Age/Sex: 63 / M ADM Date: 08/11/24 Loc: Room: [address] [place] [address] Type: ADM INOo Attending Dr: Lydia Connelly MD Ordering Provider: Lydia Connelly MD Date of Service: 08/11/2408/31/1330 [facility] echo transthoracic: Chest Pain Copies to: MD Lydia Panda MD Height: 61 in Weight: 233 lb Performed By: Narinder Lezama RDCS, T BSA: 2.0 m2 BP: 137/98 mmHg HR: 98 Reason For Study: Chest Pain History: PCI, CABG, AFib, Watchman - 07/01, HTN, HLD, FER, IN, MV disorder, CAD Interpretation Summary The LV [...] ___ Transcribed By: SCV Performed At: 08/11/24 9976 Signed By: Will Koch MD 08/11/24 9995 Normal [facility] Eosinophils Auto (Bld) [#/Vo l]Ordered By: Winnie Grande on 08-11-2024 Eosinophils (Bld) [#/Vol] Automated eosinophil count 0.0-0.45 [facility] Eosinophils/100 WBC Auto (Bl d)Ordered By: Winnie Grande on 08-11-2024 Eosinophils/100 WBC (Bld) Automated eosinophil % . [facility] Erythrocyte distribution wid th Auto (RBC) [Ratio]Ordered By: Winnie Grande on 05-05-2025 Erythrocyte distribution width (RBC) [Ratio] Erythrocyte distribution width [Ratio] by Automated count 12.0-14.8 [facility] Glucose [Mass/volume] in Ser um or PlasmaOrdered By: Winnie Grande on 08-11-2024 Glucose [Mass/Vol] Glucose [Mass/volume ] in Serum or Plasma High 70-100 [facility] Comment on above: ADA recommended refe rence rangeRandom Glucose Reference Range is dependent on time and content of last meal. Glucose of more than 200 mg/dL in a nonstressed, ambulatory subject supports the diagnosis of Diabetes Mellitus. Hematocrit Auto (Bld) [Volum e fraction]Ordered By: Winnie Grande on 08-11-2024 Hematocrit (Bld) [Volume fraction] Hematocrit [Volume Fraction] of Blood by Automated count 38.8-50.0 [facility] Hemoglobin [Mass/volume] in BloodOrdered By: Winnie Grande on 08-11-2024 Hemoglobin (Bld) [Mass/Vol] Hemoglobin [Mass/volume] in Blood 13.0-17.0 [facility] INR in Platelet poor plasma by Coagulation assayOrdered By: Winnie Grande on 08-11-2024 INR Coag (PPP) [Relative time] INR in Platelet poor plasma by Coagulation assay [facility] Comment on above: INR Therapeutic Rang e A) Pre- and Peroperative OAT started two weeks before surgery. NOT HIP SURGERY: 1.5 - 2.5 HIP SURGERY: 2 - 3B) Primary and secondary prevention of venous THROMBOSIS: 2 - 3C) Active venous thrombosis, pulmonary embolismand prevention of recurrent venous thrombosis: 2 - 3D) Prevention of arterial thromboembolismincluding patients with mechanical heart valves: 3 - 4.5 INR Coag (PPP) [Relative time] 1.1 {INR} Normal [facility] Comment on above: INR Therapeutic Rang e [...] heart valves: 3 - 4.5 PERFORMED BY: [place] [address] PATHOLOGIST COMMUNITY SERVICE WORKER OSCAR HAY M.D. Performed By: #### B MP, PT #### [address] Leukocytes [#/volume] correc collins for nucleated erythrocytes in Blood by Automated counOrdered By: Winnie Grande on 08-11-2024 WBC corrected for nucl RBC Auto (Bld) [#/Vol] Leukocytes [#/volume] corrected for nucleated erythrocytes in Blood by Automated coun High 4.1-10.5 [facility] Lymphocytes Auto (Bld) [#/Vo l]Ordered By: Winnie Grande on 08-11-2024 Lymphocytes (Bld) [#/Vol] Lymphocytes [#/volume] in Blood by Automated count Low 1.00-4.8 [facility] Lymphocytes/100 WBC Auto (Bl d)Ordered By: Winnie Grande on 08-11-2024 Lymphocytes/100 WBC (Bld) Lymphocytes/100 leukocytes in Blood by Automated count . [facility] MCH Auto (RBC) [Entitic mass ]Ordered By: Winnie Grande on 08-11-2024 MCH (RBC) [Entitic mass] MCH [Entitic mass] by Automated count High 27.5-35.2 [facility] MCHC Auto (RBC) [Mass/Vol]Or dered By: Winnie Grande on 08-11-2024 MCHC (RBC) [Mass/Vol] MCHC [Mass/volume] by Automated count 32.5-35.6 [facility] MCV Auto (RBC) [Entitic vol] Ordered By: Winnie Grande on 08-11-2024 MCV (RBC) [Entitic vol] MCV [Entitic volume] by Automated count High 83.5-101 [facility] Monocyte distribution width [Entitic volume] in Blood by AutomatedOrdered By: Winnie Grande on 08-11-2024 Monocyte distribution width Auto (Bld) [Entitic vol] Monocyte distribution width [Entitic volume] in Blood by Automated 0.00-20.00 [facility] Monocyte distribution width Auto (Bld) [Entitic vol] 19.81 % 0.00-20.00 [facility] Monocytes Auto (Bld) [#/Vol] Ordered By: Winnie Grande on 08-11-2024 Monocytes (Bld) [#/Vol] Automated blood monocyte count 0.0-0.8 [facility] Monocytes/100 WBC Auto (Bld) Ordered By: Winnie Grande on 08-11-2024 Monocytes/100 WBC (Bld) Automated monocyte % . [facility] Natriuretic peptide B [Mass/ Vol]Ordered By: Winnie Grande on 08-11-2024 Natriuretic peptide B (Bld) [Mass/Vol] BNP ser/plas High 5-100 [facility] Neutrophils Auto (Bld) [#/Vo l]Ordered By: Winnie Grande on 08-11-2024 Neutrophils (Bld) [#/Vol] Neutrophils [#/volume] in Blood by Automated count High 1.8-7.7 [facility] Neutrophils/100 WBC Auto (Bl d)Ordered By: Winnie Grande on 08-11-2024 Neutrophils/100 WBC (Bld) Automated neutrophil % . [facility] No Panel InformationOrdered By: Winnie Grande on 08-11-2024 Estimated GFR (CKD-EPI) > 60.0 mL/Min [facility] Creatinine Clearance (Chem 124.04 [facility] Nucleated erythrocytes [Pres ence] in Blood by Automated countOrdered By: Winnie Grande on 08-11-2024 Nucleated RBC Auto Ql (Bld) Nucleated erythrocytes [Presence] in Blood by Automated count 0-0.5 [facility] Platelet mean volume Auto (B ld) [Entitic vol]Ordered By: Winnie Grande on 08-11-2024 Platelet mean volume (Bld) [Entitic vol] Platelet mean volume [Entitic volume] in Blood by Automated count 6.6-10.1 [facility] Platelets Auto (Bld) [#/Vol] Ordered By: Winnie Grande on 08-11-2024 Platelets (Bld) [#/Vol] Platelets [#/volume] in Blood by Automated count Low 150-450 [facility] Potassium [Moles/volume] in Serum or PlasmaOrdered By: Winnie Grande on 08-11-2024 Potassium [Moles/Vol] Potassium [Moles/v olume] in Serum or Plasma 3.5-5.1 [facility] Comment on above: Hemolysis is present at a level that could interfere with the result.Contact lab if redraw is required Prothrombin time (PT)Ordered By: Winnie Grande on 08-11-2024 PT Coag (PPP) [Time] Prothrombin time (PT) 9.0- 12.9 [facility] Comment on above: A hematocrit value g reater than 55% may lead to inaccurate results in coagulation testing. Patients having hematocrit values >55% require a special collection tube for coagulation studies. Please contact the laboratory at [phone] for redraw instructions. PT Coag (PPP) [Time] 12.5 s Normal 9.0-12.9 [facility] Comment on above: A hematocrit value g reater than 55% may lead to inaccurate results in coagulation testing. Patients having hematocrit values >55% require a special collection tube for coagulation studies. Please contact the laboratory at [phone] for redraw instructions. Result Comment: A he matocrit value greater than 55% may lead to inaccurate results in coagulation testing. Patients having hematocrit values >55% require a special collection tube for coagulation studies. Please contact the laboratory at [phone] for redraw instructions. Performed By: #### B MP, PT #### [facility] [address] [place] [address] RBC Auto (Bld) [#/Vol]Ordere d By: Winnie Grande on 08-11-2024 RBC (Bld) [#/Vol] Erythrocytes [#/volu me] in Blood by Automated count 3.90-5.60 [facility] Serum or plasma anion gap de terminationOrdered By: Winnie Grande on 08-11-2024 Anion gap [Moles/Vol] Serum or plasma an ion gap determination 6.0-15.0 [facility] Sodium [Moles/volume] in Ser um or PlasmaOrdered By: Winnie Grande on 08-11-2024 Sodium [Moles/Vol] Sodium [Moles/volume ] in Serum or Plasma Low 136-145 [facility] Thyrotropin [Units/volume] i n Serum or PlasmaOrdered By: Lydia Connelly on 08-11-2024 TSH Qn Thyrotropin [Units/volume] in Serum or Plasma 0.45-5.33 [facility] TSH Qn 0.50 m[IU]/L Normal 0.45-5.33 [facility] Comment on above: Result Comment: PERF ORMED BY: [place] [address] PATHOLOGIST COMM[employer]ITY SERVICE WORKER OSCAR HAY M.D. Performed By: #### T SH3 ####[place] [id number] [address] Troponin I High Sensitivityo n 08-11-2024 Troponin I High Sensitivity 14 Normal 0-20 [facility] Comment on above: Result Comment: The Troponin units of report have been changed to meet the Chest Pain Accreditation requirement, element EC5.M1l2. Troponin units are changed from pg/ml to ng/L. Also, the decimal is removed and results are in whole numbers. PERFORMED BY: [place] [address] PATHOLOGIST COMMUNITY SERVICE WORKER OSCAR HAY M.D. Performed By: #### H S TROP #### [address] Troponin I High Sensitivity 14 Normal 0-20 [facility] Comment on above: Result Comment: The Troponin units of report have been changed to meet the Chest Pain Accreditation requirement, element EC5.M1l2. Troponin units are changed from pg/ml to ng/L. Also, the decimal is removed and results are in whole numbers. PERFORMED BY: [place] [address] PATHOLOGIST COMMUNITY SERVICE WORKER OSCAR HAY M.D. Performed By: #### H S TROP ####[facility] [address] Troponin I High Sensitivity 16 Normal 0-20 [facility] Comment on above: Result Comment: The Troponin units of report have been changed to meet the Chest Pain Accreditation requirement, element EC5.M1l2. Troponin units are changed from pg/ml to ng/L. Also, the decimal is removed and results are in whole numbers. PERFORMED BY: [place] [address] PATHOLOGIST COMMUNITY SERVICE WORKER OSCAR HAY M.D. Performed By: #### B MP, PT #### [facility] [address] Troponin I.cardiac [Mass/vol ume] in Serum or Plasma by Detection limit <= 0.01 ng/Ordered By: Lydia Connelly on 08-11-2024 Troponin I.cardiac DL <= 0.01 ng/mL [Mass/Vol] Troponin I.cardiac [Mass/volume] in Serum or Plasma by Detection limit <= 0.01 ng/ 0-20 [facility] Comment on above: The Troponin units o f report have been changed to meet the Chest Pain Accreditation requirement, element EC5.M1l2. Troponin units are changed from pg/ml to ng/L. Also, the decimal is removed and results are in whole numbers. Urea nitrogen [Mass/volume] in Serum or PlasmaOrdered By: Winnie Grande on 08-11-2024 Urea nitrogen [Mass/Vol] Urea nitrogen [Mass/volume] in Serum or Plasma 7-25 [facility] WBC Auto (Bld) [#/Vol]Ordere d By: Winnie Grande on 08-11-2024 WBC (Bld) [#/Vol] Leukocytes [#/volume ] in Blood by Automated count High 4.1-10.5 [facility] X-ray reportOrdered By: Don Castro on 08-11-2024 Study report [facility] [place] [address] [place] [address] XRay Report Signed Patient: Esme Steven MR#: [id number] : 1960 Acct:[id number] Age/Sex: 63 / M ADM Date: Loc: ER Room: Type: [facility] ER Attending Dr: Copies to: Winnie Grande DO~ Ordering Provider: Winnie Grande DO Date of Service: 08/11/24 XR/XR chest 2V*: Chest Pain Chest 2 views CLINICAL HISTORY: Chest pain shortness of breath A. fib for 3 days COMPARISON: Chest 08/30/2023 FINDINGS: Post CABG changes. No lung consolidation pneumothorax pleural effusion or free air. Cardiomegaly is unchanged. XR/XR chest 2V* IMPRESSION: NO ACUTE CARDIOPULMONARY ABNORMALITY. Impression dictated by: Juan M Wilcox Jr.OBarbara 08/11/2024 11:24 AM Dictation Location: [facility]-23 Transcribed By: GWEN 08/11/24 1124 Dictated By: Alex Castro Jr, DO 08/11/24 1123 Signed By: 08/11/24 1124 [facility] XR chest 2V*on 08-11-2024 XR chest 2V* [facility] [place] [address] [place] [address] XRay Report Signed Patient: Esme Steven MR#: [id number] : 1960 Acct:[id number] Age/Sex: 63 / M ADM Date: 08/11/24 Loc: ER Room: Type: [facility] ER Attending Dr: Copies to: Winnie [...] NO ACUTE CARDIOPULMONARY ABNORMALITY. Impression dictated by: Marivel Wilcox Jr..OBarbara 08/11/2024 11:24 AM Dictation Location: [facility]23 Transcribed By: GWEN 08/11/24 1124 Dictated By: Alex Castro Jr, DO 08/11/24 1123 Signed By: 08/11/24 1124 Normal [facility] X-ray reportOrdered By: Tri Camilo on 08-06-2024 Study report [facility] [address] [place] [address] XRay Report Signed Patient: Esme Steven MR#: [id number] : 1960 Acct:[id number] Age/Sex: 63 / M ADM Date: 5 Loc: [facility] Room: Type: [facility] Attending Dr: Sarai Mendez II, MD [...] Camilo M.D. 08/06/2024 5:00 PM Dictation Location: [facility]--23 Transcribed By: [facility] 08/06/24 170 Dictated By: Gisell Camilo MD 08/06/24 4121 Signed By: 08/06/24 170 [facility] Work Phone: XR hip LT min 2V(w/wo pelvis )*on 08-06-2024 XR hip LT min 2V(w/wo pelvis)* [facility] [address] [place] [address] XRay Report Signed Patient: Esme Steven MR#: [id number] : 1960 Acct:[id number] Age/Sex: 63 / M ADM Date: 08/06/24 Loc: [facility] Room: Type: [facility] CLI Attending Dr: Sarai Mendez II, MD [...] Camilo M.D. 08/06/2024 5:00 PM Dictation Location: [place] [address] Transcribed By: [facility] 08/06/24 1700 Dictated By: Gisell Camilo MD 08/06/24 1659 Signed By: 08/06/24 1700 Normal [facility] X-ray reportOrdered By: Viraj Paul on 08-04-2024 Study report [facility] [address] [place] [address] XRay Report Signed Patient: Esme Steven MR#: [id number] : 1960 Acct:[id number] Age/Sex: 63 / M ADM Date: Loc: [facility] Room: Type: [facility] CLI Attending Dr: Chio Nichole MD Copies [...] metacarpal joint and scaphoid multi angular joint. Kcxm-cb-nhylqllr degenerative changes elsewhere. No fractures or dislocation.. Mild intercarpal degenerative changes. XR/XR hand LT min 3V* IMPRESSION: NO ACUTE BONY INJURY. Impression dictated by: Ap Paul M.D. 08/04/2024 7:49 PM Dictation Location: [facility]--29 Transcribed By: GWEN 08/04/241948 Dictated By: Ap Paul MD 08/04/241946 Signed By: 08/04/241948 [facility] Work Phone: XR hand LT min 3V*on 025 XR hand LT min 3V* [facility] [address] [place] [address] XRay Report Signed Patient: Esme Steven MR#: [id number] : 1960 Acct:[id number] Age/Sex: 63 / M ADM Date: 08/04/24 Loc: [facility] Room: Type: [facility] Attending Dr: Chio Nichole MD Copies to: Chio Nichole MD Ordering Provider: Chio Nichole MD Date of Service: 08/04/24 XR/XR hand LT min 3V*: M79.642 - Pain in left hand LEFT HAND - 4 views COMPARISON: None REASON FOR EXAM: Injury, pain base of fifth metacarpal FINDINGS: 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 Khwr-af-eiibvlqd degenerative changes elsewhere. No fractures or dislocation.. Mild intercarpal degenerative changes. XR/XR hand LT min 3V* IMPRESSION: NO ACUTE BONY INJURY. Impression dictated by: Ap Paul M.D. 08/04/2024 7:49 PM Dictation Location: [facility]29 Transcribed By: GWEN 08/04/241948 Dictated By: Ap Paul MD 08/04/241946 Signed By: 08/04/241948 Normal [facility] X-ray reportOrdered By: Tri Camilo on 08-01-2024 Study report [facility] Main [address] [address] XRay Report Signed Patient: Esme Steven MR#: [id number] : 1960 Acct:[id number] Age/Sex: 63 / M ADM Date: 5 Loc: ER Room: Type: [facility] ER Attending Dr: Copies to: Cosmo [...] Camilo M.D. 08/01/2024 11:52 AM Dictation Location: [facility]02 Transcribed By: GWEN 08/01/241151 Dictated By: Gisell Camilo MD 08/01/241149 Signed By: 08/01/241151 [facility] Work Phone: XR hip LT min 2V(w/wo pelvis )*on 08-01-2024 XR hip LT min 2V(w/wo pelvis)* [facility] [place] [id number] XRay Report Signed Patient: Esme Steven MR#: [id number] : 1960 Acct:[id number] Age/Sex: 63 / M ADM Date: 08/01/24 Loc: ER Room: Type: [facility] ER Attending Dr: Copies to: Cosmo [...] Camilo M.D. 08/01/2024 11:52 AM Dictation Location: [place] [address] Transcribed By: [facility] 08/01/24 1152 Dictated By: Gisell Camilo MD 08/01/24 1150 Signed By: 08/01/24 1152 Normal [facility] Tuyet 07-07-2024 VICKIE Telephone (RADHA) ----- ESME STEVEN ([id number]) 1960 M Date Time Provider Department 07/07/24 HELADIO PINEDA During your visit today, we recorded the following information about you: Heladio Pineda MD 08/18/2024 7:35 PM Addendum Please Call patient if MyChart note not read to review results/released to My Chart if tests completed at [facility]: Mildly high wbc, glucose, and one liver [...] PINEDA on: 08/18/2024 07:35 PM Modules accepted: Orders Melany Pearson MA 08/19/2024 10:18 AM Signed Spoke to [...] [SQCMP] Or (more content not included)... Normal [facility] 25([place])[facility] 25-hydroxyvitamin D3 [Mass/Vol] 19.2 ng/mL Low 31.0-80.0 [facility] Comment on above: Order Comment: Speci men Type: BLOOD SPECIMEN Ordering Facility: [facility] Address: [address] [place] [address] Result Comment: Clas sification of 25 [place] Vitamin D status: Deficiency/Insufficiency: < or = 30 ng/ml. Sufficiency/Optimal Levels: 31-80 ng/mL Toxicity: > 100 ng/mL. Test performed by chemiluminescent immunoassay. Performed By: #### 1 989-3 #### [facility] CLIA [id number] [address] [place] [address] [place] [address] [place] CBC panel Auto (Bld)on 06-30 Erythrocyte distribution width (RBC) [Ratio] 13.3 % 11.5 - 15.0 % [facility] Hematocrit (Bld) [Volume fraction] 49.9 % 39.0 - 51.0 % [facility] Hemoglobin (Bld) [Mass/Vol] 16.9 g/dL 13.0 - 17.0 g/dL [facility] Interpretation and review of laboratory results Abnormal [facility] MCH (RBC) [Entitic mass] 35.2 pg High 26.0 - 34.0 pg [facility] MCHC (RBC) [Mass/Vol] 33.9 g/dL 30.5 - 36.0 g/dL [facility] MCV (RBC) [Entitic vol] 104 fL High 80.0 - 100.0 fL [facility] Nucleated RBC (Bld) [#/Vol] NINF [facility] Platelet mean volume (Bld) [Entitic vol] 10.6 fL 9.0 - 12.7 fL [facility] Platelets (Bld) [#/Vol] 239 10*3/uL [facility] RBC (Bld) [#/Vol] 4.8 10*6/uL 4.20 - 6.00 m/uL [facility] WBC (Bld) [#/Vol] 12.61 10*3/uL [facility] Erythrocyte distribution width (RBC) [Ratio] 13.3 % Normal 11.5-15.0 [facility] Comment on above: Order Comment: Manjinderi nicole Type: BLOOD SPECIMEN Ordering Facility: [facility] Address: [address] [place] [address] Performed By: #### 5 8410-2, 4537-7 #### [facility] CLIA [id number] [address] [place] [address] [place] [facility] Hematocrit (Bld) [Volume fraction] 49.9 % Normal 39.0-51.0 [facility] Comment on above: Order Comment: Speci men Type: BLOOD SPECIMEN Ordering Facility: [facility] Address: [address] [place] [address] Performed By: #### 5 8410-2, 4537-7 #### [facility] CLIA [id number] [address] [place] [address] [place] Hemoglobin (Bld) [Mass/Vol] 16.9 g/dL Normal 13.0-17.0 [facility] Comment on above: Order Comment: Speci men Type: BLOOD SPECIMEN Ordering Facility: [facility] Address: [address] [place] [address] Performed By: #### 5 8410-2, 4537-7 #### [facility] CLIA [id number] [address] [place] [address] [place] MCH (RBC) [Entitic mass] 35.2 pg High 26.0-34.0 [facility] Comment on above: Order Comment: Speci men Type: BLOOD SPECIMEN Ordering Facility: [facility] Address: [address] [place] [address] Performed By: #### 5 8410-2, 4537-7 #### [facility] CLIA [id number] [address] [place] [address] [place] MCHC (RBC) [Mass/Vol] 33.9 g/dL Normal 30.5-36.0 [facility] Comment on above: Order Comment: Speci men Type: BLOOD SPECIMEN Ordering Facility: [facility] Address: [address] [place] [address] Performed By: #### 5 8410-2, 4537-7 #### [facility] CLIA [id number] [address] [place] [address] [place] MCV (RBC) [Entitic vol] 104.0 fL High 80.0-100.0 [facility] Comment on above: Order Comment: Speci men Type: BLOOD SPECIMEN Ordering Facility: [facility] Address: [address] [place] [address] Performed By: #### 5 8410-2, 4537-7 #### [facility] CLIA [id number] [address] [place] [address] [place] Nucleated RBC (Bld) [#/Vol] 10*3/uL Normal <0.01 [facility] Comment on above: Order Comment: Speci men Type: BLOOD SPECIMEN Ordering Facility: [facility] Address: [address] [place] [address] Performed By: #### 5 8410-2, 4537-7 #### [facility] CLIA [id number] [address] [place] [address] [place] Platelet mean volume (Bld) [Entitic vol] 10.6 fL Normal 9.0-12.7 [facility] Comment on above: Order Comment: Speci men Type: BLOOD SPECIMEN Ordering Facility: [facility] Address: [address] [place] [address] Performed By: #### 5 8410-2, 4537-7 #### [facility] CLIA [id number] [address] [place] [address] [place] Platelets (Bld) [#/Vol] 239 10*3/uL Normal 150-400 [facility] Comment on above: Order Comment: Speci men Type: BLOOD SPECIMEN Ordering Facility: [facility] Address: [address] [place] [address] Performed By: #### 5 8410-2, 4537-7 #### [facility] CLIA [id number] [address] [place] [address] [place] RBC (Bld) [#/Vol] 4.80 10*6/uL Normal 4.20-6.00 [facility] Comment on above: Order Comment: Speci men Type: BLOOD SPECIMEN Ordering Facility: [facility] Address: [address] [place] [address] Performed By: #### 5 8410-2, 4537-7 #### [facility] CLIA [id number] [address] [place] [address] [place] WBC (Bld) [#/Vol] 12.61 10*3/uL High 3.70-11.00 [facility] Comment on above: Order Comment: Speci men Type: BLOOD SPECIMEN Ordering Facility: [facility] Address: [address] [place] [address] Performed By: #### 5 8410-2, 4537-7 #### [facility] CLIA [id number] [address] [place] [address] [place] [address] [place] CNOVon 06-30-2024 CNOV Office Visit (RADHA ) ----- ESME STEVEN ([id number]) 1960 M Date Time Provider Department 06/30/24 9:40 AM HELADIO PINEDA During your visit today, [...] touching your toes, sit-ups, 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 Normal [facility] CRP SerPl-mCncon 06-30-2024 CRP [Mass/Vol] 0.6 mg/dL Normal <0.9 [facility] Comment on above: Order Comment: Speci men Type: BLOOD SPECIMEN Ordering Facility: [facility] Address: [address] [place] [address] Performed By: #### 1 988-5, 3084-1, 52496-3 #### [facility] CLIA [id number] [address] [place] [address] [place] Comprehensive metabolic 2000 panelon 06-30-2024 Albumin [Mass/Vol] 4.1 g/dL Normal 3.9-4.9 [facility] Comment on above: Order Comment: Speci men Type: BLOOD SPECIMEN Ordering Facility: [facility] Address: [address] [place] [address] Performed By: #### 1 988-5, 308-, 24015-5 #### [facility] CLIA [id number] [address] [place] [address] [place] ALP [Catalytic activity/Vol] 67 U/L Normal 38-113 [facility] Comment on above: Order Comment: Speci men Type: BLOOD SPECIMEN Ordering Facility: [facility] Address: [address] [place] [address] Performed By: #### 1 988-5, 3084-, 01407-2 #### [facility] CLIA [id number] [address] [place] [address] [place] ALT [Catalytic activity/Vol] 73 U/L High 10-54 [facility] Comment on above: Order Comment: Speci men Type: BLOOD SPECIMEN Ordering Facility: [facility] Address: [address] [place] [address] Performed By: #### 1 988-5, 3084-1, 83959-4 #### [facility] CLIA [id number] [address] [place] [address] [place] Anion gap [Moles/Vol] 14 mmol/L Normal 8-15 [facility] Comment on above: Order Comment: Speci men Type: BLOOD SPECIMEN Ordering Facility: [facility] Address: [address] [place] [address] Performed By: #### 1 988-5, 3081, 72889-7 #### [facility] CLIA [id number] [address] [place] [address] [place] AST [Catalytic activity/Vol] 35 U/L Normal 14-40 [facility] Comment on above: Order Comment: Speci men Type: BLOOD SPECIMEN Ordering Facility: [facility] Address: [address] [place] [address] Performed By: #### 1 988-5, 30807-08, 04628-5 #### [facility] CLIA [id number] [address] [place] [address] [place] Bilirubin [Mass/Vol] 0.7 mg/dL Normal 0.2-1.3 [facility] Comment on above: Order Comment: Speci men Type: BLOOD SPECIMEN Ordering Facility: [facility] Address: [address] [place] [address] Performed By: #### 1 988-5, 3084-1, 12885-1 #### [facility] CLIA [id number] [address] [place] [address] [place] Calcium [Mass/Vol] 9.7 mg/dL Normal 8.5-10.2 [facility] Comment on above: Order Comment: Speci men Type: BLOOD SPECIMEN Ordering Facility: [facility] Address: [address] [place] [address] Performed By: #### 1 988-5, 3084-1, 16144-5 #### [facility] CLIA [id number] [address] [place] [address] [place] Chloride [Moles/Vol] 97 mmol/L Low 98-107 [facility] Comment on above: Order Comment: Speci men Type: BLOOD SPECIMEN Ordering Facility: [facility] Address: [address] [place] [address] Performed By: #### 1 988-5, 3084-1, 65274-0 #### [facility] CLIA [id number] [address] [place] [address] [place] CO2 [Moles/Vol] 24 mmol/L Normal 22-30 [facility] Comment on above: Order Comment: Speci men Type: BLOOD SPECIMEN Ordering Facility: [facility] Address: [address] [place] [address] Performed By: #### 1 988-5, 3084-, 16080-5 #### [facility] CLIA [id number] [address] [place] [address] [place] Creatinine [Mass/Vol] 0.93 mg/dL Normal 0.73-1.22 [facility] Comment on above: Order Comment: Speci men Type: BLOOD SPECIMEN Ordering Facility: [facility] Address: [address] [place] [address] Performed By: #### 1 988-5, 3084-, 42673-2 #### [facility] CLIA [id number] [address] [place], [place] [address] [place] Creatinine and Glomerular filtration rate.predicted panel (S/P/Bld) 92 mL/min/1.73m??? Normal >=60 [facility] Comment on above: Order Comment: Speci men Type: BLOOD SPECIMEN Ordering Facility: [facility] Address: [address] [place] [address] Result Comment: Melvina mated Glomerular Filtration Rate [...] actual GFR. Performed By: #### 1 988-5, 3084, 82838-2 #### [facility] CLIA [id number] [address] [place] [address] [place] Glucose [Mass/Vol] 213 mg/dL High 74-99 [facility] Comment on above: Order Comment: Mil rivera Type: BLOOD SPECIMEN Ordering Facility: [facility] Address: [address] [place] [address] Result Comment: The [place] Diabetes Association (ADA) provides guidance for cutoff [...] Standards of Medical Care in Diabetes 2016, [place] Diabetes Association. Diabetes Care. 2016.39(Suppl 1). Performed By: #### 1 988-5, 30807-08, #### [facility] CLIA [id number] [address] [place] [address] [place] Potassium [Moles/Vol] 4.5 mmol/L Normal 3.7-5.1 [facility] Comment on above: Order Comment: Mil rivera Type: BLOOD SPECIMEN Ordering Facility: [facility] Address: [address] [place] [address] Performed By: #### 1 988-5, 308-, 89937-6 #### [facility] CLIA [id number] [address] [place] [address] [place] Protein [Mass/Vol] 7.1 g/dL Normal 6.3-8.0 [facility] Comment on above: Order Comment: Speci men Type: BLOOD SPECIMEN Ordering Facility: [facility] Address: [address] [place] [address] Performed By: #### 1 988-5, 3084-1, 37461-8 #### [facility] CLIA [id number] [address] [place] [address] [place] Sodium [Moles/Vol] 135 mmol/L Low 136-144 [facility] Comment on above: Order Comment: Speci men Type: BLOOD SPECIMEN Ordering Facility: [facility] Address: [address] [place] [address] Performed By: #### 1 988-5, 3084-1, 41007-7 #### [facility] CLIA [id number] [address] [place] [address] [place] Urea nitrogen [Mass/Vol] 20 mg/dL Normal 9-24 [facility] Comment on above: Order Comment: Speci men Type: BLOOD SPECIMEN Ordering Facility: [facility] Address: [address] [place] [address] Performed By: #### 1 988-5, 3084-1, 01187-9 #### [facility] CLIA [id number] [address] [place], [place] [address] [place] ESR Westergren method (Bld) [Velocity]on 06-30-2024 ESR (Bld) [Velocity] 12 mm/h Normal 0-15 [facility] Comment on above: Order Comment: Speci men Type: BLOOD SPECIMEN Ordering Facility: [facility] Address: [address] [place] [address] Performed By: #### 5 8410-2, 4537-7 #### [facility] CLIA [id number] [address] [place] [address] [place] Erythrocyte distribution wid th Auto (RBC) [Ratio]on 06-30-2024 Erythrocyte distribution width (RBC) [Ratio] Erythrocyte distribution width [Ratio] by Automated count 11.5-15.0 [facility] Hematocrit Auto (Bld) [Volum e fraction]on 06-30-2024 Hematocrit (Bld) [Volume fraction] Hematocrit [Volume Fraction] of Blood by Automated count 39.0-51.0 [facility] Hemoglobin [Mass/volume] in Bloodon 06-30-2024 Hemoglobin (Bld) [Mass/Vol] Hemoglobin [Mass/volume] in Blood 13.0-17.0 [facility] - Chemistry and C hemistry - challengeon 06-30-2024 Albumin [Mass/Vol] 4.1 g/dL 3.9-4.9 [facility] ALP [Catalytic activity/Vol] 67 U/L 38-113 [facility] ALT [Catalytic activity/Vol] 73 U/L High 10-54 [facility] AST [Catalytic activity/Vol] 35 U/L 14-40 [facility] Bilirubin [Mass/Vol] 0.7 mg/dL 0.2-1.3 [facility] Calcium [Mass/Vol] 9.7 mg/dL 8.5-10.2 [facility] Chloride [Moles/Vol] 97 mmol/L Low 98-107 [facility] CO2 [Moles/Vol] 24 mmol/L 22-30 [facility] Creatinine [Mass/Vol] 0.93 mg/dL 0.73-1.22 [facility] Glucose [Mass/Vol] 213 mg/dL High 74-99 [facility] Comment on above: The [place] Diabete s Association (ADA) provides guidance for [...] Standards of Medical Care in Diabetes 2016, [place] Diabetes Association. Diabetes Care. 2016.39(Suppl 1). Potassium [Moles/Vol] 4.5 mmol/L 3.7-5.1 [facility] Sodium [Moles/Vol] 135 mmol/L Low 136-144 [facility] Urate [Mass/Vol] 6.4 mg/dL 4.0-8.1 [facility] Urea nitrogen [Mass/Vol] 20 mg/dL 9 [facility] - Hematology and Cell countson 06-30-2024 ESR (Bld) [Velocity] 12 mm/h 0-15 [facility] Leukocytes [#/volume] correc collins for nucleated erythrocytes in Blood by Automated counon 06-30-2024 WBC corrected for nucl RBC Auto (Bld) [#/Vol] Leukocytes [#/volume] corrected for nucleated erythrocytes in Blood by Automated coun High 3.70-11.00 [facility] MCH Auto (RBC) [Entitic mass ]on 06-30-2024 MCH (RBC) [Entitic mass] MCH [Entitic mass] by Automated count High 26.0-34.0 [facility] MCHC Auto (RBC) [Mass/Vol]on 06-30-2024 MCHC (RBC) [Mass/Vol] MCHC [Mass/volume] by Automated count 30.5-36.0 [facility] MCV Auto (RBC) [Entitic vol] on 06-30-2024 MCV (RBC) [Entitic vol] MCV [Entitic volume] by Automated count High 80.0-100.0 [facility] No Panel Informationon 06-30 25-Hydroxy Vitamin D Total 19.2 ng/mL Low 31.0-80.0 [facility] Comment on above: Classification of 25 [place] Vitamin D status: Deficiency/Insufficiency: < or = 30 ng/ml.Sufficiency/Optimal Levels: 31-80 ng/mLToxicity: > 100 ng/mL. Test performed by chemiluminescent immunoassay. C-Reactive Protein, Quantitative 0.6 mg/dL <0.9 [facility] Estimated GFR (CKD-EPI) 92 mL/min/1.73m??? >=60 [facility] Comment on above: Estimated Glomerular Filtration Rate [...] [#/volume] in Blood by Automated count <0.01 [facility] Platelet mean volume Auto (B ld) [Entitic vol]on 06-30-2024 Platelet mean volume (Bld) [Entitic vol] Platelet mean volume [Entitic volume] in Blood by Automated count 9.0-12.7 [facility] Platelets Auto (Bld) [#/Vol] on 06-30-2024 Platelets (Bld) [#/Vol] Platelets [#/volume] in Blood by Automated count 150-400 [facility] Protein [Mass/volume] in Ser um or Plasmaon 06-30-2024 Protein [Mass/Vol] Protein [Mass/volume ] in Serum or Plasma 6.3-8.0 [facility] RBC Auto (Bld) [#/Vol]on RBC (Bld) [#/Vol] Erythrocytes [#/volu me] in Blood by Automated count 4.20-6.00 [facility] Serum or plasma anion gap de terminationon 06-30-2024 Anion gap [Moles/Vol] Serum or plasma an ion gap determination 8-15 [facility] Urate SerPl-mCncon Urate [Mass/Vol] 6.4 mg/dL Normal 4.0-8.1 [facility] include 234 beds at the [facility] Comment on above: Order Comment: Speci men Type: BLOOD SPECIMEN Ordering Facility[facility] Address: [address] [place] [address] Performed By: #### 1 988-5, 4585-9, 13092-8 #### [facility] CLIA [id number] [address] [place] [address] [place] [address] [address] WATCHMAN FULL CONTRASTon 06-13-2024 CT WATCHMAN FULL CONTRAST Interpreted By: Marcial Boyd, ADDENDUM: Technical: The following is to serve [...] PM -------- ORIGINAL REPORT -------- Dictation workstation: [id number] Interpreted By: Marcial Barreto, STUDY: CT WATCHMAN FULL CONTRAST; 06/13/2024 2:23 pm INDICATION: Signs/Symptoms:A-fib, Post Watchman. COMPARISON: None. ACCESSION NUMBER(S): [id number] ORDERING CLINICIAN: BIRD KOWALSKI TECHNIQUE: Using multidetector [...] surface/left atrial aspect of closure device. [employer] Worker: Dr. Marcial Barreto, Date: 06/15/2024 2:13 pm Signed by: Marcial Barreto 06/15/2024 2:17 PM Dictation workstation: [id number] [facility] Albumin [Mass/volume] in Ser um or Plasma by Bromocresol green (BCG) dye binding methoOrdered By: Bird Kowalski on 05-29-2024 Albumin BCG dye [Mass/Vol] Albumin [Mass/volume] in Serum or Plasma by Bromocresol green (BCG) dye binding metho 3.5-5.7 [facility] Calcium [Mass/volume] in Ser um or PlasmaOrdered By: Bird Kowalski on 05-29-2024 Calcium [Mass/Vol] Calcium [Mass/volume ] in Serum or Plasma 8.6-10.3 [facility] Carbon dioxide, total [Moles /volume] in Serum or PlasmaOrdered By: Bird Kowalski on 05-29-2024 CO2 [Moles/Vol] Carbon dioxide, tota l [Moles/volume] in Serum or Plasma 21.0-31.0 [facility] Chloride [Moles/volume] in S ursula or PlasmaOrdered By: Bird Kowalski on 05-29-2024 Chloride [Moles/Vol] Chloride [Moles/vol ume] in Serum or Plasma 98-107 [facility] Creatinine [Mass/volume] in Serum or PlasmaOrdered By: Bird Kowalski on 05-29-2024 Creatinine [Mass/Vol] Creatinine [Mass/v olume] in Serum or Plasma 0.70-1.30 [facility] Glucose [Mass/volume] in Ser um or PlasmaOrdered By: Bird Kowalski on 05-29-2024 Glucose [Mass/Vol] Glucose [Mass/volume ] in Serum or Plasma High 70-100 [facility] Comment on above: ADA recommended refe rence rangeRandom Glucose Reference Range is dependent on time and content of last meal. Glucose of more than 200 mg/dL in a nonstressed, ambulatory subject supports the diagnosis of Diabetes Mellitus. No Panel InformationOrdered By: Bird Kowalski on 05-29-2024 Estimated GFR (CKD-EPI) > 60.0 mL/Min [facility] Creatinine Clearance (Chem N/A [facility] Phosphate [Mass/volume] in S ursula or PlasmaOrdered By: Bird Kowalski on 05-29-2024 Phosphate [Mass/Vol] Phosphate [Mass/vol ume] in Serum or Plasma 2.5-4.5 [facility] Potassium [Moles/volume] in Serum or PlasmaOrdered By: Bird Kowalski on 05-29-2024 Potassium [Moles/Vol] Potassium [Moles/v olume] in Serum or Plasma 3.5-5.1 [facility] Renal Function Panelon 05-29 Albumin [Mass/Vol] 4.1 g/dL Normal 3.5-5.7 [facility] Comment on above: Result Comment: PERF ORMED BY: [facility] [address] [place] [address] PATHOLOGIST COMMUNITY SERVICE WORKER OSCAR HAY M.D. Performed By: #### R ENAL #### [facility] [address] [place] [address] [place] Anion gap [Moles/Vol] 11.9 mmol/L Normal 6.0-15.0 [facility] Comment on above: Performed By: #### R ENAL #### [facility] [address] [place] [address] [place] Calcium [Mass/Vol] 9.1 mg/dL Normal 8.6-10.3 [facility] Comment on above: Performed By: #### R ENAL #### [facility] [address] [place] [address] [place] Chloride [Moles/Vol] 102 mmol/L Normal 98-107 [facility] Comment on above: Performed By: #### R ENAL #### [facility] [address] [place] [address] [place] CO2 [Moles/Vol] 27.4 mmol/L Normal 21.0-31.0 [facility] Comment on above: Performed By: #### R ENAL #### [facility] [address] [place] [address] [place] Creatinine [Mass/Vol] 0.91 mg/dL Normal 0.70-1.30 [facility] Comment on above: Performed By: #### R ENAL #### [facility] [address] [place] [address] [place] GFR/1.73 sq M.predicted MDRD (S/P/Bld) [Vol rate/Area] mL/min/{1.73_m2} Normal [facility] Comment on above: Performed By: #### R ENAL #### [facility] [address] [place] [address] [place] Glucose [Mass/Vol] 169 mg/dL High 70-100 [facility] Comment on above: Result Comment: [facility] Glucose Reference Range is dependent on time and content of last meal. Glucose of more than 200 mg/dL in a nonstressed, ambulatory subject supports the diagnosis of Diabetes Mellitus. ADA recommended reference range Performed By: #### R ENAL #### [facility] [address] Phosphate [Mass/Vol] 3.9 mg/dL Normal 2.5-4.5 [facility] Comment on above: Performed By: #### R ENAL #### [facility] [address] Potassium [Moles/Vol] 4.3 mmol/L Normal 3.5-5.1 [facility] Comment on above: Performed By: #### R ENAL #### [facility] [address] Sodium [Moles/Vol] 137 mmol/L Normal 136-145 [facility] Comment on above: Performed By: #### R ENAL #### [facility] [address] Urea nitrogen [Mass/Vol] 24 mg/dL Normal 7-25 [facility] Comment on above: Performed By: #### R ENAL #### [facility] [address] Serum or plasma anion gap de terminationOrdered By: Bird Kowalski on 05-29-2024 Anion gap [Moles/Vol] Serum or plasma an ion gap determination 6.0-15.0 [facility] Sodium [Moles/volume] in Ser um or PlasmaOrdered By: Bird Kowalski on 05-29-2024 Sodium [Moles/Vol] Sodium [Moles/volume ] in Serum or Plasma 136-145 [facility] Urea nitrogen [Mass/volume] in Serum or PlasmaOrdered By: Bird Kowalski on 05-29-2024 Urea nitrogen [Mass/Vol] Urea nitrogen [Mass/volume] in Serum or Plasma 7-25 [facility] Activated clotting timeon ACT Coag (Bld) 277 s High 89-169 [facility] Comment on above: Result Comment: Targ et ACT range will vary based on the patient population, clinical status, and surgical intervention occurring. Performed By: #### 3 184-9 #### RAPHAEL Seymour ([id number]) [facility] ([facility]) [address] [place] [address] Basic metabolic 2000 panelon 01-29-2024 Anion gap [Moles/Vol] 13 mmol/L 10 - 2 0 mmol/L [facility] Calcium [Mass/Vol] 9.1 mg/dL 8.6 - 10. 6 mg/dL [facility] Chloride [Moles/Vol] 100 mmol/L 98 - 10 7 mmol/L [facility] CO2 [Moles/Vol] 26 mmol/L 21 - 32 mmol/L [facility] Creatinine [Mass/Vol] 1.02 mg/dL 0.50 - 1.30 mg/dL [facility] GFR/1.73 sq M.predicted among non-blacks MDRD (S/P/Bld) [Vol rate/Area] 82 mL/min/{1.73_m2} - PINF [facility] Comment on above: Calculations of melvina mated GFR are performed using the 2020 CKD-EPI Study Refit equation without the race variable for the IDMS-Traceable creatinine methods. https://jasn.asnjournals.org/content///ASN.38612 60829 Glucose [Mass/Vol] 142 mg/dL High 74 - 99 mg/dL [facility] Potassium [Moles/Vol] 3.7 mmol/L 3.5 - 5.3 mmol/L [facility] Sodium [Moles/Vol] 135 mmol/L Low 136 - 145 mmol/L [facility] Urea nitrogen [Mass/Vol] 18 mg/dL 6 - 23 mg/dL [facility] Anion gap [Moles/Vol] 13 mmol/L Normal 10-20 [facility] Comment on above: Performed By: #### 2 4321-2 #### RAPHAEL Seymour ([id number]) [facility] ([facility]) [address] [place] [address] Calcium [Mass/Vol] 9.1 mg/dL Normal 8.6-10.6 [facility] Comment on above: Performed By: #### 2 4321-2 #### RAPHAEL Seymour ([id number]) [facility] ([facility]) [address] [place] [address] Chloride [Moles/Vol] 100 mmol/L Normal 98-107 [facility] Comment on above: Performed By: #### 2 4321-2 #### RAPHAEL QUINTERO L ([id number]) [facility] ([facility]) [address] [place] [address] CO2 [Moles/Vol] 26 mmol/L Normal 21-32 [facility] Comment on above: Performed By: #### 2 4321-2 #### RAPHAEL QUINTERO L ([id number]) [facility] ([facility]) [address] [place] [address] Creatinine [Mass/Vol] 1.02 mg/dL Normal 0.50-1.30 [facility] Comment on above: Performed By: #### 2 4321-2 #### RAPHAEL Seymour ([id number]) [facility] ([facility]) [address] [place] [address] Glomerular filtration rate/1.73 sq M.predicted 82 mL/min/1.73m*2 Normal >60 [facility] Comment on above: Result Comment: Calc ulations of estimated GFR are performed using the 2020 CKD-EPI Study Refit equation without the race variable for the IDMS-Traceable creatinine methods. https://jasn.asnjournals.org/content//ASN.40997 53315 Performed By: #### 2 4321-2 #### RAPHAEL Seymour ([id number]) [facility] ([facility]) [address] [place] [address] Glucose [Mass/Vol] 142 mg/dL High 74-99 [facility] Comment on above: Performed By: #### 2 4321-2 #### RAPHAEL QUINTERO L ([id number]) [facility] ([facility]) [address] [place] [address] Potassium [Moles/Vol] 3.7 mmol/L Normal 3.5-5.3 [facility] Comment on above: Performed By: #### 2 4321-2 #### RAPHAEL Seymour ([id number]) [facility] ([facility]) [address] [place] [address] Sodium [Moles/Vol] 135 mmol/L Low 136-145 [facility] Comment on above: Performed By: #### 2 4321-2 #### RAPHAEL Seymour ([id number]) [facility] ([facility]) [address] [place] [address] Urea nitrogen [Mass/Vol] 18 mg/dL Normal 6- [facility] Comment on above: Performed By: #### 2 4321-2 #### RAPHAEL Seymour ([id number]) [facility] ([facility]) [id number] [place] [address] Blood type and Indirect anti body screen panel (Bld)on 01-29-2024 ABO group Nom (Bld) A [facility] Blood group antibody screen Ql Negative [facility] D Ag Ql (Bld) Positive [facility] Comment on above: 2nd ABO test require d. Order and Collect VERAB [facility] ABO group Nom (Bld) A Normal [facility] Comment on above: Performed By: #### 3 4532-2 #### RAPHAEL Seymour ([id number]) [facility] ([facility]) [id number] [place] [address] Blood group antibody screen Ql Negative Normal [facility] Comment on above: Performed By: #### 3 4532-2 #### RAPHAEL Seymour ([id number]) [facility] [facility] ([facility]) [id number] [place] [address]1720 D Ag Ql (Bld) Positive [facility] Comment on above: Result Comment: 2nd ABO test required. Order and Collect VERAB Performed By: #### 3 4532-2 #### RAPHAEL Seymour ([id number]) [facility] ([facility] [id number] [place] [address] 05655 CARDIAC CATHETERIZATION PROC EDUREon 01-29-2024 CARDIAC CATHETERIZATION PROCEDURE [facility], [employer], [address] [place] [address] Cardiovascular Catheterization Report Patient Name: ESME STEVEN Performing Physician: [id number] Kowalski MD Study Date: 01/29/2024 Verifying Physician: Elyssa Kowalski MD MRN/PID: [id number] [employer] Worker/Co-Scrub: Ordering Provider: [id number] KOWALSKI Date of /Age: 9 1960 / 63 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 The trans septal tract was then dilated with a Watchman FXD access sheath and the ICE probe was advanced through the dilated tract into the left atrium. Next, a 6 Bahamian angled pigtail was advanced through the delivery [...] CPT Codes: Perc left atrial appendage closure (LAAC)-09329 [id number] Bird Kowalski MD Performing Physician Final Normal [facility] CBC W Auto Differential pane l (Bld)on 01-29-2024 Basophils (Bld) [#/Vol] 0.04 10*3/uL [facility] Basophils/100 WBC (Bld) 0.4 % 0.0 - 2.0 % [facility] Eosinophils (Bld) [#/Vol] 0.02 10*3/uL [facility] Eosinophils/100 WBC (Bld) 0.2 % 0.0 - 6.0 % [facility] Erythrocyte distribution width (RBC) [Ratio] 11.8 % 11.5 - 14.5 % [facility] Hematocrit (Bld) [Volume fraction] 45.3 % 41.0 - 52.0 % [facility] Hemoglobin (Bld) [Mass/Vol] 15.6 g/dL 13.5 - 17.5 g/dL [facility] Immature granulocytes (Bld) [#/Vol] 0.09 10*3/uL [facility] Immature granulocytes/100 WBC (Bld) 0.9 % 0.0 - 0.9 % [facility] Comment on above: Immature Granulocyte Count (IG) includes promyelocytes, myelocytes and metamyelocytes but does not include bands. Percent differential counts (%) should be interpreted in the context of the absolute cell counts (cells/UL). Interpretation and review of laboratory results Abnormal [facility] Lymphocytes (Bld) [#/Vol] 1.14 10*3/uL Low [facility] Lymphocytes/100 WBC (Bld) 11 % 13.0 - 44.0 % [facility] MCH (RBC) [Entitic mass] 35.9 pg High 26.0 - 34.0 pg [facility] MCHC (RBC) [Mass/Vol] 34.4 g/dL 32.0 - 36.0 g/dL [facility] MCV (RBC) [Entitic vol] 104 fL High 80 - 100 fL [facility] Monocytes (Bld) [#/Vol] 0.74 10*3/uL [facility] Monocytes/100 WBC (Bld) 7.1 % 2.0 - 10.0 % [facility] Neutrophils (Bld) [#/Vol] 8.36 10*3/uL High [facility] Comment on above: Percent differential counts (%) should be interpreted in the context of the absolute cell counts (cells/uL). Neutrophils/100 WBC (Bld) 80.4 % 40.0 - 80.0 % [facility] Nucleated RBC/100 WBC (Bld) [Ratio] 0 % [facility] Platelets (Bld) [#/Vol] 143 10*3/uL Low [facility] RBC (Bld) [#/Vol] 4.35 10*6/uL Low [facility] WBC (Bld) [#/Vol] 10.4 10*3/uL [facility] Basophils (Bld) [#/Vol] 0.04 x10*3/uL Normal 0.00-0.10 [facility] Comment on above: Performed By: #### 5 7021-8 #### RAPHAEL Seymour ([id number]) [facility] ([facility]) [address] [place] [address] Basophils/100 WBC (Bld) 0.4 % Normal 0.0-2.0 [facility] Comment on above: Performed By: #### 5 7021-8 #### RAPHAEL Seymour ([id number]) [facility] ([facility]) [address] [place] [address] Eosinophils (Bld) [#/Vol] 0.02 x10*3/uL Normal 0.00-0.70 [facility] Comment on above: Performed By: #### 5 7021-8 #### RAPHAEL Seymour ([id number]) [facility] ([facility]) [address] [place] [address] Eosinophils/100 WBC (Bld) 0.2 % Normal 0.0-6.0 [facility] Comment on above: Performed By: #### 5 7021-8 #### RAPHAEL Seymour ([id number]) [facility] ([facility]) [address] [place] [address] 63244 Erythrocyte distribution width (RBC) [Ratio] 11.8 % Normal 11.5-14.5 [facility] Comment on above: Performed By: #### 5 7021-8 #### RAPHAEL Seymour ([id number]) [facility] ([facility]) [address] [address]345 Hematocrit (Bld) [Volume fraction] 45.3 % Normal 41.0-52.0 [facility] Comment on above: Performed By: #### 5 7021-8 #### RAPHAEL Seymour ([id number]) [facility] ([facility]) [address] [place] [address] 10166 Hemoglobin (Bld) [Mass/Vol] 15.6 g/dL Normal 13.5-17.5 [facility] Comment on above: Performed By: #### 5 7021-8 #### RAPHAEL Seymour ([id number]) [facility] ([facility]) [address] [place] [address] 07899 Immature granulocytes (Bld) [#/Vol] 0.09 x10*3/uL Normal 0.00-0.70 [facility] Comment on above: Performed By: #### 5 7021-8 #### RAPHAEL Seymour ([id number]) [facility] ([facility]) [address] [place] [address] 85533 Immature granulocytes/100 WBC (Bld) 0.9 % Normal 0.0-0.9 [facility] Comment on above: Result Comment: Paulina ture Granulocyte Count (IG) includes promyelocytes, myelocytes and metamyelocytes but does not include bands. Percent differential counts (%) should be interpreted in the context of the absolute cell counts (cells/UL). Performed By: #### 5 7021-8 #### RAPHAEL Seymour ([id number]) [facility] ([facility]) [address] [place] [address] 88662 Lymphocytes (Bld) [#/Vol] 1.14 x10*3/uL Low 1.20-4.80 [facility] Comment on above: Performed By: #### 5 7021-8 #### RAPHAEL Seymour ([id number]) [facility] ([facility]) [address] [place] [address] 89763 Lymphocytes/100 WBC (Bld) 11.0 % Normal 13.0-44.0 [facility] Comment on above: Performed By: #### 5 7021-8 #### RAPHAEL Seymour ([id number]) [facility] ([facility]) [address] [place] [address] 91721 MCH (RBC) [Entitic mass] 35.9 pg High 26.0-34.0 [facility] Comment on above: Performed By: #### 5 7021-8 #### RAPHAEL Seymour ([id number]) [facility] ([facility]) [address] [place] [address] 56877 MCHC (RBC) [Mass/Vol] 34.4 g/dL Normal 32.0-36.0 [facility] Comment on above: Performed By: #### 5 7021-8 #### RAPHAEL Seymour ([id number]) [facility] ([facility]) [address] [place] [address] 46226 MCV (RBC) [Entitic vol] 104 fL High 80-100 [facility] Comment on above: Performed By: #### 5 7021-8 #### RAPHAEL Seymour ([id number]) [facility] ([facility]) [address] [place] [address] 77350 Monocytes (Bld) [#/Vol] 0.74 x10*3/uL Normal 0.10-1.00 [facility] Comment on above: Performed By: #### 5 7021-8 #### RAPHAEL Seymour ([id number]) [facility] ([facility]) [address] [place] [address] Monocytes/100 WBC (Bld) 7.1 % Normal 2.0-10.0 [facility] Comment on above: Performed By: #### 5 7021-8 #### RAPHAEL Seymour ([id number]) [facility] ([facility]) [address] [place] [address] Neutrophils (Bld) [#/Vol] 8.36 x10*3/uL High 1.20-7.70 [facility] Comment on above: Result Comment: Perc ent differential counts (%) should be interpreted in the context of the absolute cell counts (cells/uL). Performed By: #### 5 7021-8 #### RAPHAEL Seymour ([id number]) [facility] ([facility]) [address] [place] [address] 47317 Neutrophils/100 WBC (Bld) 80.4 % Normal 40.0-80.0 [facility] Comment on above: Performed By: #### 5 7021-8 #### RAPHAEL Seymour ([id number]) [facility] ([facility]) [address] [place] [address] 27453 Nucleated RBC/100 WBC (Bld) [Ratio] 0.0 /100 WBCs Normal 0.0-0.0 [facility] Comment on above: Performed By: #### 5 7021-8 #### RAPHAEL Seymour ([id number]) [facility] ([facility]) [address] [place] [address] 11070 Platelets (Bld) [#/Vol] 143 x10*3/uL Low 150-450 [facility] Comment on above: Performed By: #### 5 7021-8 #### RAPHAEL Seymour ([id number]) [facility] ([facility]) [address] [place] [address] 76551 RBC (Bld) [#/Vol] 4.35 x10*6/uL Low 4.50-5.90 [facility] Comment on above: Performed By: #### 5 7021-8 #### RAPHAEL Seymour ([id number]) [facility] ([facility]) [address] [place] [address] WBC (Bld) [#/Vol] 10.4 x10*3/uL Normal 4.4-11.3 [facility] Comment on above: Performed By: #### 5 7021-8 #### RAPHAEL Seymour ([id number]) [facility] ([facility]) [address] [place] [address] CT WATCHMAN FULL CONTRASTon 01-29-2024 CT WATCHMAN FULL CONTRAST Interpreted By: Alonzo Holbrook, STUDY: CT WATCHMAN FULL CONTRAST; 01/29/2024 9:29 am INDICATION: Signs/Symptoms:A-fib, Pre-Watchman, MARIO Sizing, R/O MARIO Thrombus. ,I48.91 Unspecified atrial fibrillation (Multi) COMPARISON: None. ACCESSION NUMBER(S): [id number] ORDERING CLINICIAN: BIRD KOWALSKI TECHNIQUE: Using multi-detector [...] Alonzo Holbrook 01/29/2024 10:03 AM Dictation workstation: [id number] [facility] Comment on above: Order Comment: Lida [...] Alonzo Holbrook 01/29/2024 10:03 AM Dictation workstation: [id number] [facility] Interpreted By: Alonzo Castellon, STUDY: CT WATCHMAN FULL CONTRAST; 01/29/2024 9:29 am INDICATION: Signs/Symptoms:A-fib, Pre-Watchman, MARIO Sizing, R/O MARIO Thrombus. ,I48.91 Unspecified atrial fibrillation (Multi) COMPARISON: None. ACCESSION NUMBER(S): [id number] ORDERING CLINICIAN: BIRD KOWALSKI TECHNIQUE: Using multi-detector [...] no suspicious osseous lesions within included chest. [facility] Alonzo Holbrook MD - 01/29/2024 Interpreted By: Alonzo Holbrook, STUDY: CT WATCHMAN FULL CONTRAST; 01/29/2024 9:29 am INDICATION: Signs/Symptoms:A-fib, Pre-Watchman, MARIO Sizing, R/O MARIO Thrombus. ,I48.91 Unspecified atrial fibrillation (Multi) COMPARISON: None. ACCESSION NUMBER(S): [id number] ORDERING CLINICIAN: BIRD KOWALSKI TECHNIQUE: Using multi-detector [...] Alonzo Holbrook 01/29/2024 10:03 AM Dictation workstation: [id number] [facility] Work Phone: Radiology Study observation (narrative) [facility] Work Phone: [phone] watchman full contrastOrd ered By: Alonzo Holbrook on 01-29-2024 [facility] Work Phone: [phone] Coagulation tissue factor in ducedon 01-29-2024 PT Coag (PPP) [Time] 11.0 s Normal 9.8-12.8 [facility] Comment on above: Performed By: #### 5 902-2 #### RAPHAEL Seymour ([id number]) [facility] ([facility]) [address] [place] [address] ECG 12 leadOrdered By: Aniceto Burk on 01-29-2024 Atrial Rate 71 BPM [facility] Work Phone: [phone] P Mulberry 20 degrees [facility] Work Phone: [phone] P Offset 191 ms [facility] Work Phone: [phone] P Onset 126 ms [facility] Work Phone: [phone] GA Interval 198 ms [facility] Work Phone: [phone] Q Onset 225 ms [facility] Work Phone: [phone] QRS Count 12 beats [facility] Work Phone: [phone] QRS Duration 114 ms [facility] Work Phone: [phone] QT Interval 430 ms [facility] Work Phone: [phone] QTC Calculation(Bazett) 467 ms [facility] Work Phone: [phone] QTC Fredericia 455 ms [facility] Work Phone: [phone] R Mulberry -10 degrees [facility] Work Phone: [phone] T Mulberry 114 degrees [facility] Work Phone: [phone] T Offset 440 ms [facility] Work Phone: [phone] Ventricular Rate 71 BPM [facility] Work Phone: [phone] [facility] Work Phone: ECG 12 leadon 01-29-2024 Sinus rhythm with occasional Premature ventricular complexes Inferior infarct , age undetermined Abnormal ECG No previous ECGs available Confirmed by Adrien Burk ([id number]) on 01/29/2024 4:23:52 PM MUSE Adrien Burk MD - 01/29/2024 Sinus rhythm with occasional Premature ventricular complexes Inferior infarct , age undetermined Abnormal ECG No previous ECGs available Confirmed by Adrien Burk ([id number]) on 01/29/2024 4:23:52 PM [facility] Work Phone: ECG 12-LEADon 01-29-2024 ECG 12-LEAD Ventricular Rate 71 Atrial Rate 71 P-R Interval 198 QRS Duration 114 Q-T Interval 430 QTC Calculation(Bazett) 467 P Mulberry 20 R Mulberry -10 T Mulberry 114 QRS Count 12 Q Onset 225 P Onset 126 P Offset 191 T Offset 440 QTC Fredericia 455 Diagnosis Sinus rhythm with occasional Premature ventricular complexes Inferior infarct , age undetermined Abnormal ECG No previous ECGs available Confirmed by Adrien Burk ([id number]) on 01/29/2024 4:23:52 PM Normal [facility] Magnesiumon 01-29-2024 Magnesium [Mass/Vol] 1.43 mg/dL Low 1.60 - 2.40 mg/dL [facility] Magnesium [Mass/Vol] 1.43 mg/dL Low 1.60-2.40 [facility] Comment on above: Performed By: #### 1 9123-9 #### RAPHAEL Seymour ([id number]) [facility] ([facility]) [address] [place] [address] No Panel Informationon 01-28 Interpretation and review of laboratory results Abnormal [facility] PT Coag (PPP) [Time]on 01-28 INR Coag (PPP) [Relative time] 1 {INR} 0.9 - 1.1 [facility] Interpretation and review of laboratory results Normal [facility] INR Coag (PPP) [Relative time] 1.0 Normal 0.9-1.1 [facility] Comment on above: Performed By: #### 5 902-2 #### RAPHAEL Seymour ([id number]) [facility] ([facility]) [address] [place] [address] Protime-INRon 01-29-2024 PT Coag (PPP) [Time] 11 s [facility] TRANSTHORACIC ECHO (TTE) RAMOS ITEDon 01-29-2024 TRANSTHORACIC ECHO (TTE) [facility], [address] [place] [address] and TRANSTHORACIC ECHOCARDIOGRAM REPORT Patient Name: ESME STEVEN Reading Physician: [id number] Haris Beverly MD Study Date: 01/29/2024 Ordering Provider: [id number] SAMMI LOREDO MRN/PID: [id number] Fellow: Nurse: Date of /Age: 9 1960 / 63 years Supervisor Laboratory Animal Facility: Tanisha VASQUEZ Gender: M Additional Staff: Height: 177.00 cm Admit Date: 01/29/2024 Weight: 110.68 kg Admission Status: Inpatient - Routine BSA / BMI: 2.26 m2 / 35.33 kg/m2 Blood Pressure: 138/84 mmHg Department Location: [facility] [employer] Study Type: TRANSTHORACIC ECHO (TTE) LIMITED Diagnosis/ICD: Presence of other cardiac implants and grafts-Z95.818 Indication: Post LAAO CPT Code: Echo Limited-68616 Patient History: Pertinent History: A-Fib, CAD, Hyperlipidemia [...] machine learning algorithm (EchoGo Heart Failure by [employer]), the analysis of the apical 4-chamber echocardiogram [...] 53 % LV EF Reported: 53 % [id number] Haris Beverly MD Electronically signed on 01/29/2024 at 3:36:47 PM Final Normal [facility] TRANSTHORACIC ECHO (TTE) LIMITED [facility], [address] [place] [address] and TRANSTHORACIC ECHOCARDIOGRAM REPORT Patient Name: ESME STEVEN Reading Physician: [id number] Savana Williamson MD Study Date: 01/29/2024 Ordering Provider: [id number] SAMMI LOREDO MRN/PID: [id number] Fellow: Nurse: Date of /Age: 9 1960 / 63 years Supervisor Laboratory Animal Facility: Angela Tran RDCS Gender: M Additional Staff: Height: 177.80 cm Admit Date: Weight: 110.68 kg Admission Status: Inpatient - Routine BSA / BMI: 2.27 m2 / 35.01 kg/m2 Blood Pressure: 121/71 mmHg Department Location: [facility] [employer] Study Type: TRANSTHORACIC ECHO (TTE) LIMITED Diagnosis/ICD: Encounter for other preprocedural examination-Z01.818 Indication: Pre LAAO CPT Code: Echo Limited-81702 Patient History: Pertinent History: Persistent afib, ICM, [...] however appears to have an inferior/inferolateral wall [id number] abnormality. Left Atrium: The left atrium is [...] however appears to have an inferior/inferolateral wall xupp5hd abnormality. 4. The left atrium is enlarged. 5. There is moderate mitral annular calcification. 6. Limited TTE pre LAAO closure device placement. 7. No prior echocardiogram available for comparison. QUANTITATIVE DATA SUMMARY: AORTA MEASUREMENTS: Normal Ranges: Ao Sinus, d: 4.30 cm (2.1-3.5cm) [id number] Savana Williamson MD Electronically signed on 01/29/2024 at 3:21:38 PM Final Normal [facility] Heart TransthoracicOrdere d By: Haris Beverly on 01-29-2024 LV EF 53 % [facility] Work Phone: [facility] Work Phone: Heart Transthoracicon [facility], [address] [place] [address] and TRANSTHORACIC ECHOCARDIOGRAM REPORT Patient Name: ESME YAMILEX Reading Physician: [id number] Haris Beverly MD Study Date: 01/29/2024 Ordering Provider: [id number] SAMMI LOREDO MRN/PID: [id number] Fellow: Nurse: Date of /Age: 9 1960 / 63 years Supervisor Laboratory Animal Facility: Tanisha VASQUEZ Gender: M Additional Staff: Height: 177.00 cm Admit Date: 01/29/2024 Weight: 110.68 kg Admission Status: Inpatient - Routine BSA / BMI: 2.26 m2 / 35.33 kg/m2 Blood Pressure: 138/84 mmHg Department Location: [facility] [employer] Study Type: TRANSTHORACIC ECHO (TTE) LIMITED Diagnosis/ICD: Presence of other cardiac implants and grafts-Z95.818 Indication: Post LAAO CPT Code: Echo Limited-07506 Patient History: Pertinent History: A-Fib, CAD, Hyperlipidemia [...] machine learning algorithm (EchoGo Heart Failure by [employer]), the analysis of the apical 4-chamber echocardiogram [...] 53 % LV EF Reported: 53 % [id number] Haris Beverly MD Electronically signed on 01/29/2024 at 3:36:47 PM Final Haris Serna MD - 01/29/2024 [facility], [address] [place] [address] and TRANSTHORACIC ECHOCARDIOGRAM REPORT Patient Name: ESME STEVEN Reading Physician: [id number] Haris Beverly MD Study Date: 01/29/2024 Ordering Provider: [id number] SAMMI LOREDO MRN/PID: [id number] Fellow: Nurse: Date of /Age: 9 1960 / 63 years Supervisor Laboratory Animal Facility: Tanisha VASQUEZ Gender: M Additional Staff: Height: 177.00 cm Admit Date: 01/29/2024 Weight: 110.68 kg Admission Status: Inpatient - Routine BSA / BMI: 2.26 m2 / 35.33 kg/m2 Blood Pressure: 138/84 mmHg Department Location: [facility] [employer] Study Type: TRANSTHORACIC ECHO (TTE) LIMITED Diagnosis/ICD: Presence of other cardiac implants and grafts-Z95.818 Indication: Post LAAO CPT Code: Echo Limited-84001 Patient History: Pertinent History: A-Fib, CAD, Hyperlipidemia [...] machine learning algorithm (EchoGo Heart Failure by [employer]), the analysis of the apical 4-chamber echocardiogram [...] 53 % LV EF Reported: 53 % [id number] Haris Beverly MD Electronically signed on 01/29/2024 at 3:36:47 PM Final [facility] Work Phone: [facility], [address] [place] [address] and TRANSTHORACIC ECHOCARDIOGRAM REPORT Patient Name: ESME YAMILEX Reading Physician: [id number] Savana Williamson MD Study Date: 01/29/2024 Ordering Provider: [id number] SAMMI LOREDO MRN/PID: [id number] Fellow: Nurse: Date of /Age: 9 1960 / 63 years Supervisor Laboratory Animal Facility: Angela Tran RDCS Gender: M Additional Staff: Height: 177.80 cm Admit Date: Weight: 110.68 kg Admission Status: Inpatient - Routine BSA / BMI: 2.27 m2 / 35.01 kg/m2 Blood Pressure: 121/71 mmHg Department Location: [facility] [employer] Study Type: TRANSTHORACIC ECHO (TTE) LIMITED Diagnosis/ICD: Encounter for other preprocedural examination-Z01.818 Indication: Pre LAAO CPT Code: Echo Limited-94380 Patient History: Pertinent History: Persistent afib, ICM, [...] however appears to have an inferior/inferolateral wall [id number] abnormality. Left Atrium: The left atrium is [...] however appears to have an inferior/inferolateral wall [id number] abnormality. 4. The left atrium is enlarged. 5. There is moderate mitral annular calcification. 6. Limited TTE pre LAAO closure device placement. 7. No prior echocardiogram available for comparison. QUANTITATIVE DATA SUMMARY: AORTA MEASUREMENTS: Normal Ranges: Ao Sinus, d: 4.30 cm (2.1-3.5cm) 22030 Savana Williamson MD Electronically signed on 01/29/2024 at 3:21:38 PM Final Savana Weldon MD - 01/29/2024 [facility], [address] [place] [address] and TRANSTHORACIC ECHOCARDIOGRAM REPORT Patient Name: ESME STEVEN Reading Physician: [id number] Savana Williamson MD Study Date: 01/29/2024 Ordering Provider: [id number] SAMMI LOREDO MRN/PID: [id number] Fellow: Nurse: Date of /Age: 9 1960 / 63 years Supervisor Laboratory Animal Facility: Angela Tran FATMATA Gender: M Additional Staff: Height: 177.80 cm Admit Date: Weight: 110.68 kg Admission Status: Inpatient - Routine BSA / BMI: 2.27 m2 / 35.01 kg/m2 Blood Pressure: 121/71 mmHg Department Location: [facility] [employer] Study Type: TRANSTHORACIC ECHO (TTE) LIMITED Diagnosis/ICD: Encounter for other preprocedural examination-Z01.818 Indication: Pre LAAO CPT Code: Echo Limited-32874 Patient History: Pertinent History: Persistent afib, ICM, [...] however appears to have an inferior/inferolateral wall [id number] abnormality. Left Atrium: The left atrium is [...] however appears to have an inferior/inferolateral wall [id number] abnormality. 4. The left atrium is enlarged. 5. There is moderate mitral annular calcification. 6. Limited TTE pre LAAO closure device placement. 7. No prior echocardiogram available for comparison. QUANTITATIVE DATA SUMMARY: AORTA MEASUREMENTS: Normal Ranges: Ao Sinus, d: 4.30 cm (2.1-3.5cm) [id number] Savana Williamson MD Electronically signed on 01/29/2024 at 3:21:38 PM Final [facility] Work Phone: US Heart TransthoracicOrdere d By: Savana Williamson on 01-29-2024 [facility] Work Phone: Automated basophil %Ordered By: Bird Kowalski on 01-24-2024 Basophils/100 WBC (Bld) 0.4 % Normal . [facility] Comment on above: Performed By: #### B MP, CBC ####[facility] [address] [place] [address] [facility] Automated basophil countOrde red By: Bird Kowalski on 01-24-2024 Basophils (Bld) [#/Vol] 0.1 10*3/uL Normal 0.0-0.2 [facility] Comment on above: Result Comment: PERF ORMED BY: [facility] [address] [place] [address] PATHOLOGIST COMMUNITY SERVICE WORKER ALAYNA CAPONE M.D. Performed By: #### B MP, CBC ####[place] [id number] [place] [id number] [facility] Automated blood monocyte cou ntOrdered By: Bird Kowalski on 01-24-2024 Monocytes (Bld) [#/Vol] 0.7 10*3/uL Normal 0.0-0.8 [facility] Comment on above: Performed By: #### B MP, CBC ####[address] Automated eosinophil %Ordere d By: Bird Kowalski on 01-24-2024 Eosinophils/100 WBC (Bld) 0.4 % Normal . [facility] Comment on above: Performed By: #### B MP, CBC ####[address] Automated eosinophil countOr dered By: Bird Kowalski on 01-24-2024 Eosinophils (Bld) [#/Vol] 0.1 10*3/uL Normal 0.0-0.45 [facility] Comment on above: Performed By: #### B MP, CBC ####[place] [id number] [facility] Automated monocyte %Ordered By: Bird Kowalski on 01-24-2024 Monocytes/100 WBC (Bld) 5.5 % Normal . [facility] Comment on above: Performed By: #### B MP, CBC ####[place] [id number] [facility] Automated neutrophil %Ordere d By: Bird Kowalski on 01-24-2024 Neutrophils/100 WBC (Bld) 82.3 % Normal . [facility] Comment on above: Performed By: #### B MP, CBC ####[place] [id number] [facility] Basic Metabolic Panelon 01-07 GFR/1.73 sq M.predicted MDRD (S/P/Bld) [Vol rate/Area] mL/min/{1.73_m2} Normal [facility] Comment on above: Performed By: #### B MP, CBC ####[facility] [id number] [place] [id number] [facility] Basophils Auto (Bld) [#/Vol] Ordered By: Bird Kowalski on 01-24-2024 Basophils (Bld) [#/Vol] Automated basophil count 0.0-0.2 [facility] Basophils/100 WBC Auto (Bld) Ordered By: Bird Kowalski on 01-24-2024 Basophils/100 WBC (Bld) Automated basophil % . [facility] Calcium [Mass/volume] in Ser um or PlasmaOrdered By: Bird Kowalski on 01-24-2024 Calcium [Mass/Vol] 9.6 mg/dL Normal 8.6-10.3 [facility] Comment on above: Result Comment: PERF ORMED BY: [facility] [address] [place] [address] PATHOLOGIST COMMUNITY SERVICE WORKER ALAYNA CAPONE M.D. Performed By: #### B MP, CBC ####[place] [id number] [place] [id number] [facility] Calcium [Mass/Vol] Calcium [Mass/volume ] in Serum or Plasma 8.6-10.3 [facility] Carbon dioxide, total [Moles /volume] in Serum or PlasmaOrdered By: Bird Kowalski on 01-24-2024 CO2 [Moles/Vol] 28.4 mmol/L Normal 21.0-31.0 [facility] Comment on above: Performed By: #### B MP, CBC ####[facility] [address] [place] [address] [facility] CO2 [Moles/Vol] Carbon dioxide, tota l [Moles/volume] in Serum or Plasma 21.0-31.0 [facility] Chloride [Moles/volume] in S ursula or PlasmaOrdered By: Bird Kowalski on 01-24-2024 Chloride [Moles/Vol] 101 mmol/L Normal 98-107 [facility] Comment on above: Performed By: #### B MP, CBC ####[facility] [place] [address] [facility] Chloride [Moles/Vol] Chloride [Moles/vol ume] in Serum or Plasma 98-107 [facility] Complete Blood Count Auto Di ffon 01-24-2024 Mean Corpuscular HGB Conc 34.3 g/dL Normal 32.5-35.6 [facility] Comment on above: Performed By: #### B MP, CBC ####[facility] [id number] [place] [id number] [facility] NRBC% 0.1 /100{WBC} Normal 0-0.5 [facility] Comment on above: Performed By: #### B MP, CBC ####[facility] [id number] Creatinine [Mass/volume] in Serum or PlasmaOrdered By: Bird Kowalski on 01-24-2024 Creatinine [Mass/Vol] 0.98 mg/dL Normal 0.70-1.30 [facility] Comment on above: Performed By: #### B MP, CBC ####[place] [id number] [facility] Creatinine [Mass/Vol] Creatinine [Mass/v olume] in Serum or Plasma 0.70-1.30 [facility] Eosinophils Auto (Bld) [#/Vo l]Ordered By: Bird Kowalski on 01-24-2024 Eosinophils (Bld) [#/Vol] Automated eosinophil count 0.0-0.45 [facility] Eosinophils/100 WBC Auto (Bl d)Ordered By: Bird Kowalski on 01-24-2024 Eosinophils/100 WBC (Bld) Automated eosinophil % . [facility] Erythrocyte distribution wid th Auto (RBC) [Ratio]Ordered By: Bird Kowalski on 01-24-2024 Erythrocyte distribution width (RBC) [Ratio] Erythrocyte distribution width [Ratio] by Automated count 12.0-14.8 [facility] Erythrocyte distribution wid th [Ratio] by Automated countOrdered By: Bird Kowalski on 01-24-2024 Erythrocyte distribution width (RBC) [Ratio] 13.3 % Normal 12.0-14.8 [facility] Comment on above: Performed By: #### B MP, CBC ####[facility] [place] [id number] [facility] Erythrocytes [#/volume] in B lood by Automated countOrdered By: Bird Kowalski on 01-24-2024 RBC (Bld) [#/Vol] 4.40 10*6/uL Normal 3.90-5.60 [facility] Comment on above: Performed By: #### B MP, CBC ####[facility] [address] [place] [address] [facility] Glucose [Mass/volume] in Ser um or PlasmaOrdered By: Bird Kowalski on 01-24-2024 Glucose [Mass/Vol] 160 mg/dL High 70-100 [facility] Comment on above: ADA recommended refe rence rangeRandom Glucose Reference Range is dependent on time and content of last meal. Glucose of more than 200 mg/dL in a nonstressed, ambulatory subject supports the diagnosis of Diabetes Mellitus. Result Comment: [facility] Glucose Reference Range is dependent on time and content of last meal. Glucose of more than 200 mg/dL in a nonstressed, ambulatory subject supports the diagnosis of Diabetes Mellitus. ADA recommended reference range Performed By: #### B MP, CBC ####[facility] [address] [place] [address] [facility] Glucose [Mass/Vol] Glucose [Mass/volume ] in Serum or Plasma High 70-100 [facility] Comment on above: ADA recommended refe rence rangeRandom Glucose Reference Range is dependent on time and content of last meal. Glucose of more than 200 mg/dL in a nonstressed, ambulatory subject supports the diagnosis of Diabetes Mellitus. Hematocrit Auto (Bld) [Volum e fraction]Ordered By: Bird Kowalski on 01-24-2024 Hematocrit (Bld) [Volume fraction] Hematocrit [Volume Fraction] of Blood by Automated count 38.8-50.0 [facility] Hematocrit [Volume Fraction] of Blood by Automated countOrdered By: Bird Kowalski on 01-24-2024 Hematocrit (Bld) [Volume fraction] 46.5 % Normal 38.8-50.0 [facility] Comment on above: Performed By: #### B MP, CBC ####[facility] [id number] Hemoglobin [Mass/volume] in BloodOrdered By: Bird Kowalski on 01-24-2024 Hemoglobin (Bld) [Mass/Vol] 16.0 g/dL Normal 13.0-17.0 [facility] Comment on above: Performed By: #### B MP, CBC ####[facility] [id number] Hemoglobin (Bld) [Mass/Vol] Hemoglobin [Mass/volume] in Blood 13.0-17.0 [facility] Leukocytes [#/volume] correc collins for nucleated erythrocytes in Blood by Automated counOrdered By: Bird Kowalski on 01-24-2024 WBC corrected for nucl RBC Auto (Bld) [#/Vol] 12.6 10*3/uL High 4.1-10.5 [facility] WBC corrected for nucl RBC Auto (Bld) [#/Vol] Leukocytes [#/volume] corrected for nucleated erythrocytes in Blood by Automated coun High 4.1-10.5 [facility] Leukocytes [#/volume] in Blo od by Automated countOrdered By: Bird Kowalski on 01-24-2024 WBC (Bld) [#/Vol] 12.6 10*3/uL High 4.1-10.5 [facility] Comment on above: Performed By: #### B MP, CBC ####[address] Lymphocytes Auto (Bld) [#/Vo l]Ordered By: Bird Koawlski on 01-24-2024 Lymphocytes (Bld) [#/Vol] Lymphocytes [#/volume] in Blood by Automated count 1.00-4.8 [facility] Lymphocytes [#/volume] in Bl ood by Automated countOrdered By: Bird Kowalski on 01-24-2024 Lymphocytes (Bld) [#/Vol] 1.4 10*3/uL Normal 1.00-4.8 [facility] Comment on above: Performed By: #### B MP, CBC ####[facility] [id number] Lymphocytes/100 WBC Auto (Bl d)Ordered By: Bird Kowalski on 01-24-2024 Lymphocytes/100 WBC (Bld) Lymphocytes/100 leukocytes in Blood by Automated count . [facility] Lymphocytes/100 leukocytes i n Blood by Automated countOrdered By: Bird Kowalski on 01-24-2024 Lymphocytes/100 WBC (Bld) 11.4 % Normal . [facility] Comment on above: Performed By: #### B MP, CBC ####[facility] [id number] MCH Auto (RBC) [Entitic mass ]Ordered By: Bird Kowalski on 01-24-2024 MCH (RBC) [Entitic mass] MCH [Entitic mass] by Automated count High 27.5-35.2 [facility] MCH [Entitic mass] by Automa collins countOrdered By: Bird Kowalski on 01-24-2024 MCH (RBC) [Entitic mass] 36.3 pg High 27.5-35.2 [facility] Comment on above: Performed By: #### B MP, CBC ####[facility] [id number] [place] [address] MCHC Auto (RBC) [Mass/Vol]Or dered By: Bird Kowalski on 01-24-2024 MCHC (RBC) [Mass/Vol] 34.3 g/dL 32.5-35.6 [facility] MCHC (RBC) [Mass/Vol] MCHC [Mass/volume] by Automated count 32.5-35.6 [facility] MCV Auto (RBC) [Entitic vol] Ordered By: Bird Kowalski on 01-24-2024 MCV (RBC) [Entitic vol] MCV [Entitic volume] by Automated count High 83.5-101 [facility] MCV [Entitic volume] by Auto mated countOrdered By: Bird Kowalski on 01-24-2024 MCV (RBC) [Entitic vol] 105.8 fL High 83.5-101 [facility] Comment on above: Performed By: #### B MP, CBC ####[facility] [address] [place] [address] [facility] Monocytes Auto (Bld) [#/Vol] Ordered By: Bird Kowalski on 01-24-2024 Monocytes (Bld) [#/Vol] Automated blood monocyte count 0.0-0.8 [facility] Monocytes/100 WBC Auto (Bld) Ordered By: Bird Kowalski on 01-24-2024 Monocytes/100 WBC (Bld) Automated monocyte % . [facility] Neutrophils Auto (Bld) [#/Vo l]Ordered By: Bird Kowalski on 01-24-2024 Neutrophils (Bld) [#/Vol] Neutrophils [#/volume] in Blood by Automated count High 1.8-7.7 [facility] Neutrophils [#/volume] in Bl ood by Automated countOrdered By: Bird Kowalski on 01-24-2024 Neutrophils (Bld) [#/Vol] 10.4 10*3/uL High 1.8-7.7 [facility] Comment on above: Performed By: #### B MP, CBC ####[facility] [address] [place] [address] [facility] Neutrophils/100 WBC Auto (Bl d)Ordered By: Bird Kowalski on 01-24-2024 Neutrophils/100 WBC (Bld) Automated neutrophil % . [facility] No Panel InformationOrdered By: Bird Kowalski on 01-24-2024 Estimated GFR (CKD-EPI) > 60.0 mL/Min [facility] Creatinine Clearance (Chem N/A [facility] Nucleated erythrocytes [Pres ence] in Blood by Automated countOrdered By: Bird Kowalski on 01-24-2024 Nucleated RBC Auto Ql (Bld) 0.1 /100{WBC} 0-0.5 [facility] Nucleated RBC Auto Ql (Bld) Nucleated erythrocytes [Presence] in Blood by Automated count 0-0.5 [facility] Platelet mean volume Auto (B ld) [Entitic vol]Ordered By: Bird Kowalski on 01-24-2024 Platelet mean volume (Bld) [Entitic vol] Platelet mean volume [Entitic volume] in Blood by Automated count High 6.6-10.1 [facility] Platelet mean volume [Entiti c volume] in Blood by Automated countOrdered By: Bird Kowalski on 01-24-2024 Platelet mean volume (Bld) [Entitic vol] 10.2 fL High 6.6-10.1 [facility] Comment on above: Performed By: #### B MP, CBC ####[place] [id number] Platelets Auto (Bld) [#/Vol] Ordered By: Bird Kowalski on 01-24-2024 Platelets (Bld) [#/Vol] Platelets [#/volume] in Blood by Automated count 150-450 [facility] Platelets [#/volume] in Bloo d by Automated countOrdered By: Bird Kowalski on 01-24-2024 Platelets (Bld) [#/Vol] 155 10*3/uL Normal 150-450 [facility] Comment on above: Performed By: #### B MP, CBC ####[place] [id number] [facility] Potassium [Moles/volume] in Serum or PlasmaOrdered By: Bird Kowalski on 01-24-2024 Potassium [Moles/Vol] 4.3 mmol/L Normal 3.5-5.1 [facility] Comment on above: Performed By: #### B MP, CBC ####[place] [id number] [facility] Potassium [Moles/Vol] Potassium [Moles/v olume] in Serum or Plasma 3.5-5.1 [facility] RBC Auto (Bld) [#/Vol]Ordere d By: Bird Kowalski on 01-24-2024 RBC (Bld) [#/Vol] Erythrocytes [#/volu me] in Blood by Automated count 3.90-5.60 [facility] Serum or plasma anion gap de terminationOrdered By: Bird Kowalski on 01-24-2024 Anion gap [Moles/Vol] 10.9 mmol/L Normal 6.0-15.0 [facility] Comment on above: Performed By: #### B MP, CBC ####[facility] [id number] [place] [address] [facility] Anion gap [Moles/Vol] Serum or plasma an ion gap determination 6.0-15.0 [facility] Sodium [Moles/volume] in Ser um or PlasmaOrdered By: Bird Kowalski on 01-24-2024 Sodium [Moles/Vol] 136 mmol/L Normal 136-145 [facility] Comment on above: Performed By: #### B MP, CBC ####[facility] [address] [place] [id number] [facility] Sodium [Moles/Vol] Sodium [Moles/volume ] in Serum or Plasma 136-145 [facility] Urea nitrogen [Mass/volume] in Serum or PlasmaOrdered By: Bird Kowalski on 01-24-2024 Urea nitrogen [Mass/Vol] 20 mg/dL Normal 7-25 [facility] Comment on above: Performed By: #### B MP, CBC ####[place] [id number] [place] [id number] [facility] Urea nitrogen [Mass/Vol] Urea nitrogen [Mass/volume] in Serum or Plasma 7-25 [facility] WBC Auto (Bld) [#/Vol]Ordere d By: Bird Kowalski on 01-24-2024 WBC (Bld) [#/Vol] Leukocytes [#/volume ] in Blood by Automated count High 4.1-10.5 [facility] Jose 12-31-2023 L Specimen: [id number] Received: 12/31/23 Status: ESTEFANIA Simpson Num: [id number] Spec Type: Surgical Subm Dr: Mehrdad Mcmanus MD Tissues: A Colon Biopsy (TRANSVERSE POLYP) B Colon Biopsy (APPENDICEAL ORIFACE BX) C Colon Biopsy (TRANSVERSE POLYP) Procedures: HE/6, Gross/Micro L4/3 Age/ Patient Sex Location Account Attending Physician Esme Steven 63/M [id number] Mehrdad Mcmanus MD SPEC NUM: [id number] RECD: 12/31/23 STATUS: ESTEFANIA REAsmita NUM: [id number] DEUCE: 12/31/[address]: Mehrdad Mcmanus MD ENTERED: 12/31/23 [facility] DR: SPEC TYPE: Surgical DEPT: S ENTERED BY: [id number] RECV BY: [id number] ORDERED: HE/6, Gross/Micro L4/3 ORDERED: HE/6, Gross/Micro [...] transverse polyp and consists of a Specimen: [id number] Received: 12/31/23 Status: ESTEFANIA Simpson Num: [id number] Spec Type: Surgical Subm Dr: Mehrdda Mcmanus MD Tissues: A Colon Biopsy (TRANSVERSE POLYP) B Colon Biopsy (APPENDICEAL ORIFACE BX) C Colon Biopsy (TRANSVERSE POLYP) Procedures: HE/6, Gross/Micro L4/3 Patient: Esme Steven [id number] (Continued) Specimen: [id number] Received: 12/31/23 (Continued) Gross Description (Continued) Signed (signature on file) Michele Almaraz MD 01/03/24 0948 Specimen: [id number] Received: 12/31/23 Status: ESTEFANIA Simpson Num: [id number] Spec Type: Surgical Subm Dr: Mehrdad Mcmanus MD Tissues: A Colon Biopsy (TRANSVERSE POLYP) B Colon Biopsy (APPENDICEAL ORIFACE BX) C Colon Biopsy (TRANSVERSE POLYP) Procedures: JAMIE/Monica, Gross/Micro L4/3 Patient: Esme Steven [id number] (Continued) Specimen: [id number] Received: 12/31/23 (Continued) Gross Description (Continued) calero polypoid shaped soft tissue fragment measuring 0.5 cm in greatest dimension. The specimen is entirely submitted cassette C1. CPT Codes 88 305 x 3 Specimen: [id number] Received: 12/31/23 Status: ESTEFANIA Albertsasmita Num: [id number] Spec Type: Surgical Subm Dr: Mehrdad Mcmanus MD Tissues: A Colon Biopsy (TRANSVERSE POLYP) B Colon Biopsy (APPENDICEAL ORIFACE BX) C Colon Biopsy (TRANSVERSE POLYP) Procedures: HE/Monica, Gross/Micro L4/3 Patient: Esme Steven [id number] (Continued) Signed (signature on file) Michele Almaraz MD 01/03/24 0948 Normal [facility] CNCOon 12-18-2023 CNCO Letter Text Normal [facility] Basophils Auto (Bld) [#/Vol] on 11-21-2023 Basophils (Bld) [#/Vol] 0.1 10 3/uL 0.0-0.1 [facility] Basophils/100 WBC Auto (Bld) on 11-21-2023 Basophils/100 WBC (Bld) 0.7 % 0.2-2.0 [facility] Cholesterol in LDL Calc [Mas s/Vol]on 11-21-2023 Cholesterol in LDL [Mass/Vol] 73.0 mg/dL [facility] Comment on above: <100 mg/dl [id number] 0-129 mg/dl NEAR OR ABOVE [id number] mg/dl BORDERLINE [id number] mg/dl HIGH>190 mg/dl VERY HIGH Cholesterol in VLDL Calc [Ma ss/Vol]on 11-21-2023 Cholesterol in VLDL [Mass/Vol] 15.0 mg/dL [facility] Eosinophils/100 WBC Auto (Bl d)on 11-21-2023 Eosinophils/100 WBC (Bld) 1.1 % 0.9-7.0 [facility] Erythrocyte distribution wid th Auto (RBC) [Ratio]on 11-21-2023 Erythrocyte distribution width (RBC) [Ratio] 13.2 % 11.0-15.0 [facility] Estimated glomerular filtrat ion rate (GFR) non- Americanon 11-21-2023 GFR/1.73 sq M.predicted among non-blacks MDRD (S/P/Bld) [Vol rate/Area] mL/min/{1.73_m2} >=60 [facility] Globulin Calc (S) [Mass/Vol] on 11-21-2023 Globulin (S) [Mass/Vol] 3.2 g/dL [facility] Hematocrit Auto (Bld) [Volum e fraction]on 11-21-2023 Hematocrit (Bld) [Volume fraction] 43.6 % 42.0-54.0 [facility] Hemoglobin [Mass/volume] in Bloodon 11-21-2023 Hemoglobin (Bld) [Mass/Vol] 15.2 g/dL 14.0-18.0 [facility] Laboratory - Chemistry and C hemistry - challengeon 11-21-2023 Albumin [Mass/Vol] 3.4 g/dL 3.4-5.0 [facility] ALP [Catalytic activity/Vol] 53 U/L 46-116 [facility] ALT [Catalytic activity/Vol] 48 U/L 16-63 [facility] AST [Catalytic activity/Vol] 19 U/L 15-37 [facility] Bilirubin [Mass/Vol] 0.7 mg/dL 0.2-1.0 [facility] Calcium [Mass/Vol] 8.6 mg/dL 8.5-10.1 [facility] Chloride [Moles/Vol] 103 mmol/L 98-107 [facility] Cholesterol [Mass/Vol] 141 mg/dL <=200 [facility] Cholesterol in HDL [Mass/Vol] 53 mg/dL 40-60 [facility] Comment on above: > or =60 mg/dl - LOW CARDIOVASCULAR RISK<40 mg/dl - HIGH CARDIOVASCULAR RISK CO2 [Moles/Vol] 29.6 mmol/L 21.0-32.0 [facility] Creatinine [Mass/Vol] 0.87 mg/dL 0.70-1.30 [facility] GFR/1.73 sq M.predicted MDRD (S/P/Bld) [Vol rate/Area] mL/min/{1.73_m2} >=60 [facility] Glucose [Mass/Vol] 113 mg/dL High 74-106 [facility] Potassium [Moles/Vol] 4.3 mmol/L 3.5-5.1 [facility] Protein [Mass/Vol] 6.6 g/dL 6.4-8.2 [facility] Sodium [Moles/Vol] 138 mmol/L 136-145 [facility] Triglyceride [Mass/Vol] 75 mg/dL <=150 [facility] TSH Qn 1.694 m[IU]/L 0.358-3.74 0 [facility] Urea nitrogen [Mass/Vol] 19.0 mg/dL High 7.0-18.0 [facility] Urea nitrogen/Creatinine [Mass ratio] 21.8 mg/mg [facility] Laboratory - Hematology and Cell countson 11-21-2023 Immature granulocytes/100 WBC (Bld) 1.3 % High 0.0-0.5 [facility] Leukocytes [#/volume] correc collins for nucleated erythrocytes in Blood by Automated counon 11-21-2023 WBC corrected for nucl RBC Auto (Bld) [#/Vol] 11.4 10 3/uL High 4.0-11.0 [facility] Lymphocytes Auto (Bld) [#/Vo l]on 11-21-2023 Lymphocytes (Bld) [#/Vol] 2.8 10 3/uL 1.2-3.8 [facility] Lymphocytes/100 WBC Auto (Bl d)on 11-21-2023 Lymphocytes/100 WBC (Bld) 24.3 % 20.5-60.0 [facility] MCH Auto (RBC) [Entitic mass ]on 11-21-2023 MCH (RBC) [Entitic mass] 36.5 pg High 25.9-34.0 [facility] MCHC Auto (RBC) [Mass/Vol]on 11-21-2023 MCHC (RBC) [Mass/Vol] 34.9 g/dL 29.9-35.2 [facility] MCV Auto (RBC) [Entitic vol] on 11-21-2023 MCV (RBC) [Entitic vol] 104.6 fL High 80.0-94.0 [facility] Monocytes Auto (Bld) [#/Vol] on 11-21-2023 Monocytes (Bld) [#/Vol] 1.0 10 3/uL High 0.3-0.8 [facility] Monocytes/100 WBC Auto (Bld) on 11-21-2023 Monocytes/100 WBC (Bld) 8.5 % 1.7-12.0 [facility] Neutrophils Auto (Bld) [#/Vo l]on 11-21-2023 Neutrophils (Bld) [#/Vol] 7.3 10 3/uL High 1.4-6.5 [facility] Neutrophils/100 WBC Auto (Bl d)on 11-21-2023 Neutrophils/100 WBC (Bld) 64.1 % 43.0-75.0 [facility] No Panel Informationon 11-20 Eosinophils # (Auto) 0.1 10 3/uL 0.0-0.7 [facility] Immature Granulocyte # (Auto) 0.15 10 3/uL High 0.00-0.03 [facility] Prostate Specific Antigen Screen 0.48 ng/mL <=4.00 [facility] Platelet mean volume Auto (B ld) [Entitic vol]on 11-21-2023 Platelet mean volume (Bld) [Entitic vol] 10.6 fL 9.5-13.5 [facility] Platelets Auto (Bld) [#/Vol] on 11-21-2023 Platelets (Bld) [#/Vol] 180 10 3/uL 150-450 [facility] RBC Auto (Bld) [#/Vol]on RBC (Bld) [#/Vol] 4.17 10 6/uL Low 4.70-6.10 [facility] Serum or plasma albumin/glob ulin mass ratioon 11-21-2023 Albumin/Globulin [Mass ratio] 1.1 {ratio} [facility] Serum or plasma anion gap de terminationon 11-21-2023 Anion gap [Moles/Vol] 9.7 mmol/L [facility] Serum or plasma total choles terol/high density lipoprotein (HDL) cholesterol mass orin 11-21-2023 Cholesterol.total/Chol esterol in HDL [Mass ratio] 2.7 {ratio} [facility] Comment on above: 3.3 - 4.4 LOW RISK4. 4 - 7.1 AVERAGE RISK7.1 - 11.0 MODERATE RISK>11.0 [facility] Laboratory - Hematology and Cell countson 09-05-2023 ESR (Bld) [Velocity] 2 mm/h 0-15 [facility] No Panel Informationon 09-04 C-Reactive Protein, Quantitative 0.8 mg/dL <0.9 [facility] Basophils Auto (Bld) [#/Vol] Ordered By: Elliott Talley on 09-01-2023 Basophils (Bld) [#/Vol] 0.0 10*3/uL 0.0-0.2 [facility] Basophils/100 WBC Auto (Bld) Ordered By: Elliott Talley on 09-01-2023 Basophils/100 WBC (Bld) 0.5 % . [facility] Eosinophils Auto (Bld) [#/Vo l]Ordered By: Elliottoliver Talley on 09-01-2023 Eosinophils (Bld) [#/Vol] 0.1 10*3/uL 0.0-0.45 [facility] Eosinophils/100 WBC Auto (Bl d)Ordered By: Elliottoliver Talley on 09-01-2023 Eosinophils/100 WBC (Bld) 0.8 % . [facility] Erythrocyte distribution wid th Auto (RBC) [Ratio]Ordered By: Elliott Talley on 09-01-2023 Erythrocyte distribution width (RBC) [Ratio] 15.2 % High 12.0-14.8 [facility] Hematocrit Auto (Bld) [Volum e fraction]Ordered By: Elliott Talley on 09-01-2023 Hematocrit (Bld) [Volume fraction] 47.9 % 38.8-50.0 [facility] Hemoglobin [Mass/volume] in BloodOrdered By: Elliott Talley on 09-01-2023 Hemoglobin (Bld) [Mass/Vol] 16.1 g/dL 13.0-17.0 [facility] Leukocytes [#/volume] correc collins for nucleated erythrocytes in Blood by Automated counOrdered By: Elliott Talley on 09-01-2023 WBC corrected for nucl RBC Auto (Bld) [#/Vol] 7.6 10*3/uL 4.1-10.5 [facility] Lymphocytes Auto (Bld) [#/Vo l]Ordered By: Elliott Talley on 09-01-2023 Lymphocytes (Bld) [#/Vol] 1.0 10*3/uL 1.00-4.8 [facility] Lymphocytes/100 WBC Auto (Bl d)Ordered By: Elliott Talley on 09-01-2023 Lymphocytes/100 WBC (Bld) 13.5 % . [facility] MCH Auto (RBC) [Entitic mass ]Ordered By: Elliott Talley on 09-01-2023 MCH (RBC) [Entitic mass] 34.6 pg 27.5-35.2 [facility] MCHC Auto (RBC) [Mass/Vol]Or dered By: Elliott Talley on 09-01-2023 MCHC (RBC) [Mass/Vol] 33.7 g/dL 32.5-35.6 [facility] MCV Auto (RBC) [Entitic vol] Ordered By: Elliott Talley on 09-01-2023 MCV (RBC) [Entitic vol] 102.8 fL High 83.5-101 [facility] Monocytes Auto (Bld) [#/Vol] Ordered By: Elliott Talley on 09-01-2023 Monocytes (Bld) [#/Vol] 0.5 10*3/uL 0.0-0.8 [facility] Monocytes/100 WBC Auto (Bld) Ordered By: Elliott Talley on 09-01-2023 Monocytes/100 WBC (Bld) 6.4 % . [facility] Neutrophils Auto (Bld) [#/Vo l]Ordered By: Elliott Talley on 09-01-2023 Neutrophils (Bld) [#/Vol] 6.0 10*3/uL 1.8-7.7 [facility] Neutrophils/100 WBC Auto (Bl d)Ordered By: Elliott Talley on 09-01-2023 Neutrophils/100 WBC (Bld) 78.8 % . [facility] Nucleated erythrocytes [Pres ence] in Blood by Automated countOrdered By: Elliott Talley on 09-01-2023 Nucleated RBC Auto Ql (Bld) 0.0 /100{WBC} 0-0.5 [facility] Platelet mean volume Auto (B ld) [Entitic vol]Ordered By: Elliott Talley on 09-01-2023 Platelet mean volume (Bld) [Entitic vol] 9.1 fL 6.6-10.1 [facility] Platelets Auto (Bld) [#/Vol] Ordered By: Elliott Talley on 09-01-2023 Platelets (Bld) [#/Vol] 119 10*3/uL Low 150-450 [facility] RBC Auto (Bld) [#/Vol]Ordere d By: Elliott Talley on 09-01-2023 RBC (Bld) [#/Vol] 4.66 10*6/uL 3.90-5.60 [facility] WBC Auto (Bld) [#/Vol]Ordere d By: Elliott Talley on 09-01-2023 WBC (Bld) [#/Vol] 7.6 10*3/uL 4.1-10.5 [facility] Activated partial thrombopla stin time (aPTT) in platelet poor plasma by coagulation aOrdered By: Elliott Talley on 08-31-2023 aPTT Coag (PPP) [Time] 27.6 s 25.1-36.5 [facility] Comment on above: A hematocrit value g reater than 55% may lead to inaccurate results in coagulation testing. Patients having hematocrit values >55% require a special collection tube for coagulation studies. Please contact the laboratory at [phone] for redraw instructions. Alanine aminotransferase [En zymatic activity/volume] in Serum or PlasmaOrdered By: Elliott Talley on 08-31-2023 ALT [Catalytic activity/Vol] 33 U/L 7-52 [facility] Albumin [Mass/volume] in Ser um or Plasma by Bromocresol green (BCG) dye binding methoOrdered By: Elliott Tlaley on 08-31-2023 Albumin BCG dye [Mass/Vol] 3.5 g/dL 3.5-5.7 [facility] Alkaline phosphatase [Enzyma tic activity/volume] in Serum or PlasmaOrdered By: Elliott Talley on 08-31-2023 ALP [Catalytic activity/Vol] 39 U/L 34-104 [facility] Aspartate aminotransferase [ Enzymatic activity/volume] in Serum or PlasmaOrdered By: Elliott Talley on 08-31-2023 AST [Catalytic activity/Vol] 19 U/L 13-39 [facility] Bilirubin.total [Mass/volume ] in Serum or PlasmaOrdered By: Elliott Talley on 08-31-2023 Bilirubin [Mass/Vol] 1.3 mg/dL High 0.3-1.0 [facility] Comment on above: Samples from patient s who have taken Naproxen have shown spurious elevation in Total Bilirubin levels. A metabolite of Naproxen, O-desmethylnaproxen, has been shown to interfere with the Marie method for measuring Total Bilirubin. Calcium [Mass/volume] in Ser um or PlasmaOrdered By: Elliott Talley on 08-31-2023 Calcium [Mass/Vol] 8.6 mg/dL 8.6-10.3 [facility] Carbon dioxide, total [Moles /volume] in Serum or PlasmaOrdered By: Elliott Talley on 08-31-2023 CO2 [Moles/Vol] 29.2 mmol/L 21.0-31.0 [facility] Chloride [Moles/volume] in S ursula or PlasmaOrdered By: Elliott Talley on 08-31-2023 Chloride [Moles/Vol] 104 mmol/L 98-107 [facility] Creatinine [Mass/volume] in Serum or PlasmaOrdered By: Elliott Talley on 08-31-2023 Creatinine [Mass/Vol] 1.05 mg/dL 0.70-1.30 [facility] Globulin Calc (S) [Mass/Vol] Ordered By: Elliott Talley on 08-31-2023 Globulin (S) [Mass/Vol] 2.1 g/dL [facility] Glucose [Mass/volume] in Ser um or PlasmaOrdered By: Elliott Talley on 08-31-2023 Glucose [Mass/Vol] 101 mg/dL High 70-100 [facility] Comment on above: ADA recommended refe rence rangeRandom Glucose Reference Range is dependent on time and content of last meal. Glucose of more than 200 mg/dL in a nonstressed, ambulatory subject supports the diagnosis of Diabetes Mellitus. INR in Platelet poor plasma by Coagulation assayOrdered By: Elliott Talley on 08-31-2023 INR Coag (PPP) [Relative time] 1.1 {INR} [facility] Comment on above: INR Therapeutic Rang e [...] on 08-31-2023 Magnesium [Mass/Vol] 2.0 mg/dL 1.9-2.7 [facility] No Panel InformationOrdered By: Elliott Talley on 08-31-2023 Estimated GFR (CKD-EPI) > 60.0 mL/Min [facility] Creatinine Clearance (Chem 90.65 [facility] Potassium [Moles/volume] in Serum or PlasmaOrdered By: Elliott Talley on 08-31-2023 Potassium [Moles/Vol] 4.4 mmol/L 3.5-5.1 [facility] Protein [Mass/volume] in Ser um or PlasmaOrdered By: Elliott Talley on 08-31-2023 Protein [Mass/Vol] 5.6 g/dL Low 6.4-8.9 [facility] Prothrombin time (PT)Ordered By: Elliott Talley on 08-31-2023 PT Coag (PPP) [Time] 13.1 s High 9.0-12.9 [facility] Comment on above: A hematocrit value g reater than 55% may lead to inaccurate results in coagulation testing. Patients having hematocrit values >55% require a special collection tube for coagulation studies. Please contact the laboratory at [phone] for redraw instructions. Random cortisol measurementO rdered By: Elliott Talley on 08-31-2023 Cortisol [Mass/Vol] 9.4 ug/dL [facility] Comment on above: [facility] Laboratory cadd manager and method:BERTIN Light[employer] MaterialsEL DXI, POLYCLONAL ANTIBODY CORTISOL ASSAY.Reference range: AM 6 - 24 ug/dl PM <10 ug/dl Serum or plasma albumin/glob ulin mass ratioOrdered By: Elliott Talley on 08-31-2023 Albumin/Globulin [Mass ratio] 1.7 {ratio} [facility] Serum or plasma anion gap de terminationOrdered By: Elliott Talley on 08-31-2023 Anion gap [Moles/Vol] 9.2 mmol/L 6.0-15.0 [facility] Sodium [Moles/volume] in Ser um or PlasmaOrdered By: Elliott Talley on 08-31-2023 Sodium [Moles/Vol] 138 mmol/L 136-145 [facility] Urea nitrogen [Mass/volume] in Serum or PlasmaOrdered By: Elliott Talley on 08-31-2023 Urea nitrogen [Mass/Vol] 15 mg/dL 10-31 [facility] Activated partial thrombopla stin time (aPTT) in platelet poor plasma by coagulation aOrdered By: Hermes Velez on 08-30-2023 aPTT Coag (PPP) [Time] 25.5 s 25.1-36.5 [facility] Comment on above: A hematocrit value g reater than 55% may lead to inaccurate results in coagulation testing. Patients having hematocrit values >55% require a special collection tube for coagulation studies. Please contact the laboratory at [phone] for redraw instructions. Alanine aminotransferase [En zymatic activity/volume] in Serum or PlasmaOrdered By: Hermes Velez on 08-30-2023 ALT [Catalytic activity/Vol] 44 U/L [facility] Albumin [Mass/volume] in Ser um or Plasma by Bromocresol green (BCG) dye binding methoOrdered By: Hermes Velez on 08-30-2023 Albumin BCG dye [Mass/Vol] 4.2 g/dL 3.5-5.7 [facility] Alkaline phosphatase [Enzyma tic activity/volume] in Serum or PlasmaOrdered By: Hermes Velez on 08-30-2023 ALP [Catalytic activity/Vol] 46 U/L 34-104 [facility] Aspartate aminotransferase [ Enzymatic activity/volume] in Serum or PlasmaOrdered By: Hermes Velez on 08-30-2023 AST [Catalytic activity/Vol] 27 U/L 13-39 [facility] Bacterial blood cultureOrder ed By: Hermes Velez on 08-30-2023 Bacteria identified Cx Nom (Bld) NO GROWTH 5 DAYS [facility] Basophils Auto (Bld) [#/Vol] Ordered By: Hermes Velez on 08-30-2023 Basophils (Bld) [#/Vol] 0.1 10*3/uL 0.0-0.2 [facility] Basophils/100 WBC Auto (Bld) Ordered By: Hermes Velez on 08-30-2023 Basophils/100 WBC (Bld) 0.8 % . [facility] Bilirubin Test strip Ql (U)O rdered By: Hermes Velez on 08-30-2023 Bilirubin Ql (U) Negative Negative [facility] Bilirubin.direct [Mass/volum e] in Serum or PlasmaOrdered By: Hermes Velez on 08-30-2023 Bilirubin.direct [Mass/Vol] 0.20 mg/dL High 0.03-0.18 [facility] Bilirubin.total [Mass/volume ] in Serum or PlasmaOrdered By: Hermes Velez on 08-30-2023 Bilirubin [Mass/Vol] 0.9 mg/dL 0.3-1.0 [facility] COVID CepheidOrdered By: Rodney martinez Quinby on 08-30-2023 SARS-CoV-2 (COVID-19) Ab IA Ql Negative Negative [facility] Comment on above: This is a duplicate [employer] Xpert Xpress CoV-2/Flu/RSV Plus RNA by RT-PCR result to be used for statistical tracking purpose only. SARS-CoV-2 (COVID-19) RNA ROSIE+probe Ql (Unsp spec) [facility] COVID-19 Detected/Not Detect edOrdered By: Elliott Talley on 05-23-2024 SARS-CoV-2 (COVID-19) RNA ROSIE+non-probe Ql (Nph) Not detected Not Detecte [facility] Comment on above: This is a duplicate RP2.1 COVID (PCR) result to be used for statistical tracking purpose only. Calcium [Mass/volume] in Ser um or PlasmaOrdered By: Hermes Velez on 08-30-2023 Calcium [Mass/Vol] 9.3 mg/dL 8.6-10.3 [facility] Carbon dioxide, total [Moles /volume] in Serum or PlasmaOrdered By: Hermes Velez on 08-30-2023 CO2 [Moles/Vol] 25.1 mmol/L 21.0-31.0 [facility] Chloride [Moles/volume] in S ursula or PlasmaOrdered By: Hermes Velez on 08-30-2023 Chloride [Moles/Vol] 100 mmol/L 98-107 [facility] Color Auto (U)Ordered By: Grayson red Rosie on 08-30-2023 Color (U) Yellow Yellow [facility] Creatine kinase [Enzymatic a ctivity/volume] in Serum or PlasmaOrdered By: Hermes Velez on 08-30-2023 CK [Catalytic activity/Vol] 37 U/L 30-223 [facility] Creatinine [Mass/volume] in Serum or PlasmaOrdered By: Hermes Velez on 08-30-2023 Creatinine [Mass/Vol] 1.11 mg/dL 0.70-1.30 [facility] Eosinophils Auto (Bld) [#/Vo l]Ordered By: Hermes Velez on 08-30-2023 Eosinophils (Bld) [#/Vol] 0.0 10*3/uL 0.0-0.45 [facility] Eosinophils/100 WBC Auto (Bl d)Ordered By: Hermes Velez on 08-30-2023 Eosinophils/100 WBC (Bld) 0.1 % . [facility] Erythrocyte distribution wid th Auto (RBC) [Ratio]Ordered By: Hermes Velez on 08-30-2023 Erythrocyte distribution width (RBC) [Ratio] 15.1 % 12.0-14.8 [facility] Globulin Calc (S) [Mass/Vol] Ordered By: Hermes Velez on 08-30-2023 Globulin (S) [Mass/Vol] 2.8 g/dL [facility] Glucose [Mass/volume] in Ser um or PlasmaOrdered By: Hermes Velez on 08-30-2023 Glucose [Mass/Vol] 123 mg/dL 70-100 [facility] Comment on above: ADA recommended refe rence rangeRandom Glucose Reference Range is dependent on time and content of last meal. Glucose of more than 200 mg/dL in a nonstressed, ambulatory subject supports the diagnosis of Diabetes Mellitus. Hematocrit Auto (Bld) [Volum e fraction]Ordered By: Hermes Velez on 08-30-2023 Hematocrit (Bld) [Volume fraction] 48.1 % 38.8-50.0 [facility] Hemoglobin [Mass/volume] in BloodOrdered By: Hermes Velez on 08-30-2023 Hemoglobin (Bld) [Mass/Vol] 16.2 g/dL 13.0-17.0 [facility] INR in Platelet poor plasma by Coagulation assayOrdered By: Hermes Velez on 08-30-2023 INR Coag (PPP) [Relative time] 1.1 {INR} [facility] Comment on above: INR Therapeutic Rang e [...] on 08-30-2023 Ketones (U) [Mass/Vol] Negative Negative [facility] Lactate [Moles/volume] in Se rum or PlasmaOrdered By: Tony Comer on 08-30-2023 Lactate [Moles/Vol] 1.9 mmol/L 0.5-2.2 [facility] Leukocytes [#/volume] correc collins for nucleated erythrocytes in Blood by Automated counOrdered By: Hermes Velez on 08-30-2023 WBC corrected for nucl RBC Auto (Bld) [#/Vol] 14.5 10*3/uL 4.1-10.5 [facility] Lipase [Enzymatic activity/v olume] in Serum or PlasmaOrdered By: Hermes Velez on 08-30-2023 Lipase [Catalytic activity/Vol] 13.0 U/L 11.0-82.0 [facility] Lymphocytes Auto (Bld) [#/Vo l]Ordered By: Hermes Velez on 08-30-2023 Lymphocytes (Bld) [#/Vol] 0.6 10*3/uL 1.00-4.8 [facility] Lymphocytes/100 WBC Auto (Bl d)Ordered By: Hermes Velez on 08-30-2023 Lymphocytes/100 WBC (Bld) 4.4 % . [facility] MCH Auto (RBC) [Entitic mass ]Ordered By: Hermes Velez on 08-30-2023 MCH (RBC) [Entitic mass] 34.5 pg 27.5-35.2 [facility] MCHC Auto (RBC) [Mass/Vol]Or dered By: Hermes Velez on 08-30-2023 MCHC (RBC) [Mass/Vol] 33.7 g/dL 32.5-35.6 [facility] MCV Auto (RBC) [Entitic vol] Ordered By: Hermes Velez on 08-30-2023 MCV (RBC) [Entitic vol] 102.3 fL 83.5-101 [facility] Monocyte distribution width [Entitic volume] in Blood by AutomatedOrdered By: Hermes Velez on 08-30-2023 Monocyte distribution width Auto (Bld) [Entitic vol] 21.88 % High 0.00-20.00 [facility] Comment on above: For adults in ED, MD W > 20.0 may be associated with a higher risk of sepsis during the first 12 hrs of hospital admission Monocytes Auto (Bld) [#/Vol] Ordered By: Hermes Velez on 08-30-2023 Monocytes (Bld) [#/Vol] 0.3 10*3/uL 0.0-0.8 [facility] Monocytes/100 WBC Auto (Bld) Ordered By: Hermes Velez on 08-30-2023 Monocytes/100 WBC (Bld) 2.3 % . [facility] Natriuretic peptide B [Mass/ Vol]Ordered By: Hermes Velez on 08-30-2023 Natriuretic peptide B (Bld) [Mass/Vol] 401.0 pg/mL High 5-100 [facility] Neutrophils Auto (Bld) [#/Vo l]Ordered By: Hermes Velez on 08-30-2023 Neutrophils (Bld) [#/Vol] 13.4 10*3/uL 1.8-7.7 [facility] Neutrophils/100 WBC Auto (Bl d)Ordered By: Hermes Velez on 08-30-2023 Neutrophils/100 WBC (Bld) 92.4 % . [facility] Nitrite Test strip Ql (U)Ord ered By: Hermes Velez on 08-30-2023 Nitrite Ql (U) Negative Negative [facility] No Panel InformationOrdered By: Hermes Velez on 08-30-2023 Bacterial ID (NA Multiplex Assay) Presumptive Coag Neg. Staph [facility] Bacterial ID (NA Multiplex Assay) Staphylococcus sp coag neg Abnormal [facility] Estimated GFR (CKD-EPI) > 60.0 mL/Min [facility] Creatinine Clearance (Chem 82.75 [facility] Nucleated erythrocytes [Pres ence] in Blood by Automated countOrdered By: Hermes Velez on 08-30-2023 Nucleated RBC Auto Ql (Bld) 0.0 /100{WBC} 0-0.5 [facility] Platelet mean volume Auto (B ld) [Entitic vol]Ordered By: Hermes Velez on 08-30-2023 Platelet mean volume (Bld) [Entitic vol] 8.7 fL 6.6-10.1 [facility] Platelets Auto (Bld) [#/Vol] Ordered By: Hermes Velez on 08-30-2023 Platelets (Bld) [#/Vol] 147 10*3/uL 150-450 [facility] Potassium [Moles/volume] in Serum or PlasmaOrdered By: Hermes Velez on 08-30-2023 Potassium [Moles/Vol] 3.3 mmol/L 3.5-5.1 [facility] Protein Auto test strip (U) [Mass/Vol]Ordered By: Hermes Velez on 08-30-2023 Protein (U) [Mass/Vol] Negative Negative [facility] Protein [Mass/volume] in Ser um or PlasmaOrdered By: Hermes Velez on 08-30-2023 Protein [Mass/Vol] 7.0 g/dL 6.4-8.9 [facility] Prothrombin time (PT)Ordered By: Hermes Velez on 08-30-2023 PT Coag (PPP) [Time] 12.8 s 9.0-12.9 [facility] Comment on above: A hematocrit value g reater than 55% may lead to inaccurate results in coagulation testing. Patients having hematocrit values >55% require a special collection tube for coagulation studies. Please contact the laboratory at [phone] for redraw instructions. RBC Auto (Bld) [#/Vol]Ordere d By: Hermes Velez on 08-30-2023 RBC (Bld) [#/Vol] 4.70 10*6/uL 3.90-5.60 [facility] Respiratory pathogens DNA an d RNA panel - Nasopharynx by ROSIE with non-probe detectionOrdered By: Elliott Talley on 08-30-2023 Respiratory pathogens DNA and RNA panel ROSIE+non-probe (Nph) [facility] Serum or plasma albumin/glob ulin mass ratioOrdered By: Hermes Velez on 08-30-2023 Albumin/Globulin [Mass ratio] 1.5 {ratio} [facility] Serum or plasma anion gap de terminationOrdered By: Hermes Velez on 08-30-2023 Anion gap [Moles/Vol] 14.2 mmol/L 6.0-15.0 [facility] Serum or plasma non-glucuron idated bilirubin measurement (mass/volume)Ordered By: Hermes Velez on 08-30-2023 Bilirubin.indirect [Mass/Vol] 0.7 mg/dL [facility] Sodium [Moles/volume] in Ser um or PlasmaOrdered By: Hermes Velez on 08-30-2023 Sodium [Moles/Vol] 136 mmol/L 136-145 [facility] Specific gravity Auto test s trip (U) [Rel density]Ordered By: Hermes Velez on 08-30-2023 Specific gravity (U) [Rel density] 1.016 1.001-1.03 0 [facility] Troponin I.cardiac [Mass/vol ume] in Serum or Plasma by Detection limit <= 0.01 ng/Ordered By: Erin Suresh on 08-30-2023 Troponin I.cardiac DL <= 0.01 ng/mL [Mass/Vol] 16.9 pg/mL 0.0-20.0 [facility] Urea nitrogen [Mass/volume] in Serum or PlasmaOrdered By: Hermes Velez on 08-30-2023 Urea nitrogen [Mass/Vol] 21 mg/dL 7-25 [facility] Urine clarity by refractomet ry automatedOrdered By: Hermes Velez on 08-30-2023 Clarity Refractometry automated (U) Clear Clear [facility] Urine glucose measurement by automated test strip (mass/volume)Ordered By: Hermes Velez on 08-30-2023 Glucose Auto test strip (U) [Mass/Vol] Normal mg/dL Normal [facility] Urine hemoglobin detection b y automated test stripOrdered By: Hermes Velez on 08-30-2023 Hemoglobin Auto test strip Ql (U) Negative Negative [facility] Urine leukocyte esterase det ection by automated test stripOrdered By: Hermes Velez on 08-30-2023 Leukocyte esterase Auto test strip Ql (U) Negative Negative [facility] Urobilinogen Auto test strip (U) [Mass/Vol]Ordered By: Hermes Velez on 08-30-2023 Urobilinogen (U) [Mass/Vol] Normal mg/dL Normal [facility] WBC Auto (Bld) [#/Vol]Ordere d By: Hermes Velez on 08-30-2023 WBC (Bld) [#/Vol] 14.5 10*3/uL 4.1-10.5 [facility] pH Auto test strip (U)Ordere d By: Hermes Velez on 08-30-2023 pH (U) 5.5 [pH] 5.0-9.0 [facility] ECG 12 Leadon 08-16-2023 [facility] Work Phone: Sinus with PVC.s [facility] Work Phone: Carbon dioxide, total [Moles /volume] in Serum or PlasmaOrdered By: Antonio Steele on 08-02-2023 CO2 [Moles/Vol] 26.4 mmol/L 21.0-31.0 [facility] Chloride [Moles/volume] in S ursula or PlasmaOrdered By: Antonio Steele on 08-02-2023 Chloride [Moles/Vol] 102 mmol/L 98-107 [facility] Potassium [Moles/volume] in Serum or PlasmaOrdered By: Antonio Steele on 08-02-2023 Potassium [Moles/Vol] 4.1 mmol/L 3.5-5.1 [facility] Serum or plasma anion gap de terminationOrdered By: Antonio Steele on 08-02-2023 Anion gap [Moles/Vol] 13.7 mmol/L 6.0-15.0 [facility] Sodium [Moles/volume] in Ser um or PlasmaOrdered By: Antonio Steele on 08-02-2023 Sodium [Moles/Vol] 138 mmol/L 136-145 [facility] ECG 12 Leadon 07-27-2023 Atrial fibrillation with controlled rate [facility] Work Phone: CT biopsyon 07-05-2023 CT biopsy 5.3 U/L 1.5-8.1 [facility] Comment on above: This test was develo ped and its performance characteristics determined by [facility] ([facility]). It has not been cleared or approved by the FDA. [facility] is regulated under CLIA as qualified to perform high-complexity testing. This test is used for clinical purposes. It should not be regarded as investigational or for research. Laboratory - Chemistry and C hemistry - challengeon 07-05-2023 CK [Catalytic activity/Vol] 52 U/L 51-298 [facility] Cobalamin (Vitamin B12) [Mass/Vol] 685 pg/mL 232-1245 [facility] Urate [Mass/Vol] 7.2 mg/dL 4.0-8.1 [facility] Laboratory - Hematology and Cell countson 07-05-2023 ESR (Bld) [Velocity] 15 mm/h 0-15 [facility] No Panel Informationon 07-04 C-Reactive Protein, Quantitative 0.8 mg/dL <0.9 [facility] Serum or plasma calcidiol me asurement (mass/volume)on 07-05-2023 25-hydroxyvitamin D3 [Mass/Vol] 21.4 ng/mL 31.0-80.0 [facility] Comment on above: Classification of 25 [place] [...] years, Gender: Male SCANNER INFORMATION: DXA Model: [employer] Date Scanned: 06/28/2023 12:56 PM CLINICAL HISTORY: [...] had a previous bone density in the [facility] or the previous bone density was performed on a different DXA machine (new, updated model or different location) within the [facility]. VERTEBRAL FRACTURE ASSESSMENT Not performed. TRABECULAR [...] FOR MORE INFORMATION ABOUT DIAGNOSIS AND TREATMENT: [facility] for Osteoporosis and Metabolic Bone Disease:? www.ccf.org/arthritis/ost eo National Osteoporosis Foundation:? www.nof.org International Society of Clinical Densitometry www.iscd.org Cephalometric Tracer: RAQUEL Transcribe Date/Time: Jun 28 2023 1:37P Dictated by : KEREN BRAVO DO This examination was interpreted and the report reviewed and electronically signed by: KEREN BRAVO DO on Jun 28 2023 1:47PM EST [id number] [facility] BD DXA - FOREARM SKELETONon 06-28-2023 [...] years, Gender: Male SCANNER INFORMATION: DXA Model: [employer] Date Scanned: 06/28/2023 12:56 PM CLINICAL HISTORY: [...] had a previous bone density in the [facility] or the previous bone density was performed on a different DXA machine (new, updated model or different location) within the [facility]. VERTEBRAL FRACTURE ASSESSMENT Not performed. TRABECULAR [...] FOR MORE INFORMATION ABOUT DIAGNOSIS AND TREATMENT: [facility] for Osteoporosis and Metabolic Bone Disease:? www.ccf.org/arthritis/ost eo National Osteoporosis Foundation:? www.nof.org International Society of Clinical Densitometry www.iscd.org Cephalometric Tracer: RAQUEL Transcribe Date/Time: Jun 28 2023 1:37P Dictated by : KEREN BRAVO DO This examination was interpreted and the report reviewed and electronically signed by: KEREN BRAVO DO on Jun 28 2023 1:47PM EST [id number] Normal [facility] DXA Radius and Ulna [Mass/Ar ea] Bone densityon 06-28-2023 [facility] DXA Skeletal system.axial Vi ews for bone densityon 06-28-2023 [facility] BASIC METABOLIC PANLon 06-11 Anion gap [Moles/Vol] 10 mmol/L Normal 5-15 [facility] Comment on above: Performed By: #### C BCA, BMP, [id number] #### [facility] ([id number]) [address], [address] [place] [address] Calcium [Mass/Vol] 9.3 mg/dL Normal 8.5-10.5 [facility] Comment on above: Performed By: #### RAIMUNDO Wong BCA, #### [facility] ([id number]) [address], [address] [place] [address] Chloride [Moles/Vol] 102 mmol/L Normal 98-109 [facility] Comment on above: Performed By: #### C RAIMUNDO GOLDSMITH, #### [facility] ([id number]) [address], [address] [place] [address] CO2 [Moles/Vol] 25 mmol/L Normal 22-32 [facility] Comment on above: Performed By: #### RAIMUNDO Wong BCA, #### [facility] ([id number]) [address], [address] [place] [address] Creatinine [Mass/Vol] 0.95 mg/dL Normal 0.60-1.30 [facility] Comment on above: Result Comment: METH OD TRACEABLE TO IDMS STANDARD Performed By: #### RAIMUNDO Wong BCA, #### [facility] ([id number]) [address], [address] [place] [address] GFR/1.73 sq M.predicted among non-blacks MDRD (S/P/Bld) [Vol rate/Area] 90 mL/min/{1.73_m2} Normal >59 [facility] Comment on above: Result Comment: Reported eGFR is based on the CKD-EPI 2020 equation that does not use a race coefficient. Performed By: #### C RAIMUNDO GOLDSMITH, #### [facility] ([id number]) [address], [address] [place] [address] Glucose [Mass/Vol] 117 mg/dL High 65-99 [facility] Comment on above: Performed By: #### RAIMUNDO Wong BCA, #### [facility] ([id number]) [address], [address] [place] [address] Potassium [Moles/Vol] 3.9 mmol/L Normal 3.5-5.0 [facility] Comment on above: Performed By: #### RAIMUNDO Wong BCA, #### [facility] ([id number]) [address], [address] [place] [address] Sodium [Moles/Vol] 137 mmol/L Normal 134-146 [facility] Comment on above: Performed By: #### RAIMUNDO Wong BCA, #### [facility] ([id number]) [address], [address] [place] [address] Urea nitrogen [Mass/Vol] 20 mg/dL Normal 5-27 [facility] Comment on above: Performed By: #### RAIMUNDO Wong BCA, #### [facility] ([id number]) [address], [address] [place] [address] CBC AND AUTO DIFFon 06-12-19 24 ABSOLUTE BASOPHIL 0.1 X10E9/L Normal 0.0-0.2 [facility] Comment on above: Performed By: #### RAIMUNDO Wong BCA, #### [facility] ([id number]) [address], [address] [place] [address] ABSOLUTE NEUTROPHIL 5.9 X10E9/L Normal 1.5-6.6 [facility] Comment on above: Performed By: #### RAIMUNDO Wong BCA, #### [facility] ([id number]) [address] [address] [place] [address] Basophils/100 WBC (Bld) 0.6 % Normal [facility] Comment on above: Performed By: #### RAIMUNDO Wong BCA, #### [facility] ([id number]) [address], [address] [place] [address] Eosinophils (Bld) [#/Vol] 0.1 10*3/uL Normal 0.0-0.4 [facility] Comment on above: Performed By: #### Marvin [facility], #### [facility] ([id number]) [address] [address] [place] [address] Eosinophils/100 WBC (Bld) 1.0 % Normal [facility] Comment on above: Performed By: #### Marvin [facility], #### [facility] ([id number]) [address], [facility] [address] [place] [address] Erythrocyte distribution width (RBC) [Ratio] 14.4 % Normal 11.5-15.0 [facility] Comment on above: Performed By: #### Marvin [facility], #### [facility] ([id number]) [address], [facility] [address] [place] [address] Hematocrit (Bld) [Volume fraction] 46.6 % Normal 39-49 [facility] Comment on above: Performed By: #### Marvin [facility], #### [facility] ([id number]) [address] [address] [place] [address] Hemoglobin (Bld) [Mass/Vol] 15.6 g/dL Normal 13.0-17.0 [facility] Comment on above: Performed By: #### Marvin [facility], #### [facility] ([id number]) [address], [facility] [address] [place] [address] Lymphocytes (Bld) [#/Vol] 2.2 10*3/uL Normal 1.0-3.5 [facility] Comment on above: Performed By: #### Marvin [facility], #### [facility] ([id number]) [address], [address] [place] [address] Lymphocytes/100 WBC (Bld) 25.1 % Normal [facility] Comment on above: Performed By: #### RAIMUNDO Wong BCA, #### [facility] ([id number]) [address], [address] [place] [address] MCH (RBC) [Entitic mass] 33.5 pg Normal 27-34 [facility] Comment on above: Performed By: #### RAIMUNDO Wong BCA, #### [facility] ([id number]) [address], [address] [place] [address] MCHC (RBC) [Mass/Vol] 33.4 g/dL Normal 32-36 [facility] Comment on above: Performed By: #### RAIMUNDO Wong BCA, #### [facility] ([id number]) [address], [address] [place] [address] MCV (RBC) [Entitic vol] 100 fL Normal 80-100 [facility] Comment on above: Performed By: #### RAIMUNDO Wong BCA, #### [facility] ([id number]) [address], [address] [place] [address] Monocytes (Bld) [#/Vol] 0.7 10*3/uL Normal 0-0.9 [facility] Comment on above: Performed By: #### RAIMUNDO Wong BCA, #### [facility] ([id number]) [address], [address] [place] [address] Monocytes/100 WBC (Bld) 7.5 % Normal [facility] Comment on above: Performed By: #### RAIMUNDO Wong BCA, #### [facility] ([id number]) [address], [address] [place] [address] Neutrophils/100 WBC (Bld) 65.8 % Normal [facility] Comment on above: Performed By: #### C BCA, BMP, #### [facility] ([id number]) [address], [facility] [address] [place] [address] Platelet mean volume (Bld) [Entitic vol] 9.3 fL Normal 7-12 [facility] Comment on above: Performed By: #### RAIMUNDO Wong BCA, #### [facility] ([id number]) [address], [facility] [address] [place] [address] Platelets (Bld) [#/Vol] 216 10*3/uL Normal 150-450 [facility] Comment on above: Performed By: #### RAIMUNDO Wong BCA, #### [facility] ([id number]) [address], [facility] [address] [place] [address] RBC COUNT 4.65 X10E12/L Normal 4.10-5.70 [facility] Comment on above: Performed By: #### RAIMUNDO Wong BCA, #### [facility] ([id number]) [address], [address] [address] WBC (Bld) [#/Vol] 8.9 10*3/uL Normal 4.0-11.0 [facility] Comment on above: Performed By: #### RAIMUNDO Wong BCA, #### [facility] ([id number]) [address], [facility] [address] [place] [address] MAGNESIUMon 06-12-2023 Magnesium [Mass/Vol] 1.5 mg/dL Low 1.8-2.6 [facility] Comment on above: Performed By: #### C MP, PINR, 21511-1, , CBCA, 76979-8, 27819-2 #### [facility] ([id number]) [address] [place] [address], [place] [address] POCT EKGon 06-04-2023 [facility] Basophils Auto (Bld) [#/Vol] Ordered By: Melinda Verduzco on 05-21-2023 Basophils (Bld) [#/Vol] 0.1 10*3/uL 0.0-0.2 [facility] Basophils/100 WBC Auto (Bld) Ordered By: Melinda Verduzco on 05-21-2023 Basophils/100 WBC (Bld) 0.6 % . [facility] C reactive protein [Mass/vol ume] in Serum or PlasmaOrdered By: Melinda Verduzco on 05-21-2023 CRP [Mass/Vol] 0.5 mg/dL 0.0-0.5 [facility] Eosinophils Auto (Bld) [#/Vo l]Ordered By: Melinda Verduzco on 05-21-2023 Eosinophils (Bld) [#/Vol] 0.1 10*3/uL 0.0-0.45 [facility] Eosinophils/100 WBC Auto (Bl d)Ordered By: Melinda Verduzco on 05-21-2023 Eosinophils/100 WBC (Bld) 0.4 % . [facility] Erythrocyte distribution wid th Auto (RBC) [Ratio]Ordered By: Melinda Verduzco on 05-21-2023 Erythrocyte distribution width (RBC) [Ratio] 14.5 % 12.0-14.8 [facility] Erythrocyte sedimentation ra te by Photometric methodOrdered By: Melinda Verduzco on 05-21-2023 ESR Photometric method (Bld) [Velocity] 16 mm/hr 0-19 [facility] Fibrin D-dimer [Presence] in Platelet poor plasma by Latex agglutinationOrdered By: Melinda Verduzco on 05-21-2023 Fibrin D-dimer LA Ql (PPP) 213 ng/mL 0-243 [facility] Comment on above: The reference range for [...] coagulation studies. Please contact the laboratory at [phone] for redraw instructions. Hematocrit Auto (Bld) [Volum e fraction]Ordered By: Melinda Verduzco on 05-21-2023 Hematocrit (Bld) [Volume fraction] 47.1 % 38.8-50.0 [facility] Hemoglobin [Mass/volume] in BloodOrdered By: Melinda Verduzco on 05-21-2023 Hemoglobin (Bld) [Mass/Vol] 15.6 g/dL 13.0-17.0 [facility] Leukocytes [#/volume] correc collins for nucleated erythrocytes in Blood by Automated counOrdered By: Melinda Verduzco on 05-21-2023 WBC corrected for nucl RBC Auto (Bld) [#/Vol] 15.1 10*3/uL 4.1-10.5 [facility] Lymphocytes Auto (Bld) [#/Vo l]Ordered By: Melinda Verduzco on 05-21-2023 Lymphocytes (Bld) [#/Vol] 2.1 10*3/uL 1.00-4.8 [facility] Lymphocytes/100 WBC Auto (Bl d)Ordered By: Melinda Verduzco on 05-21-2023 Lymphocytes/100 WBC (Bld) 13.9 % . [facility] MCH Auto (RBC) [Entitic mass ]Ordered By: Melinda Verduzco on 05-21-2023 MCH (RBC) [Entitic mass] 33.3 pg 27.5-35.2 [facility] MCHC Auto (RBC) [Mass/Vol]Or dered By: Melinda Verduzco on 05-21-2023 MCHC (RBC) [Mass/Vol] 33.1 g/dL 32.5-35.6 [facility] MCV Auto (RBC) [Entitic vol] Ordered By: Melinda Verduzco on 05-21-2023 MCV (RBC) [Entitic vol] 100.7 fL 83.5-101 [facility] Monocytes Auto (Bld) [#/Vol] Ordered By: Melinda Verduzco on 05-21-2023 Monocytes (Bld) [#/Vol] 1.0 10*3/uL 0.0-0.8 [facility] Monocytes/100 WBC Auto (Bld) Ordered By: Melinda Verduzco on 05-21-2023 Monocytes/100 WBC (Bld) 6.8 % . [facility] Neutrophils Auto (Bld) [#/Vo l]Ordered By: Melinda Verduzco on 05-21-2023 Neutrophils (Bld) [#/Vol] 11.8 10*3/uL 1.8-7.7 [facility] Neutrophils/100 WBC Auto (Bl d)Ordered By: Melinda Verduzco on 05-21-2023 Neutrophils/100 WBC (Bld) 78.3 % . [facility] Nucleated erythrocytes [Pres ence] in Blood by Automated countOrdered By: Melinda Verduzco on 05-21-2023 Nucleated RBC Auto Ql (Bld) 0.1 /100{WBC} 0-0.5 [facility] Platelet mean volume Auto (B ld) [Entitic vol]Ordered By: Melinda Verduzco on 05-21-2023 Platelet mean volume (Bld) [Entitic vol] 8.7 fL 6.6-10.1 [facility] Platelets Auto (Bld) [#/Vol] Ordered By: Melinda Verduzco on 05-21-2023 Platelets (Bld) [#/Vol] 228 10*3/uL 150-450 [facility] RBC Auto (Bld) [#/Vol]Ordere d By: Melinda Verduzco on 05-21-2023 RBC (Bld) [#/Vol] 4.68 10*6/uL 3.90-5.60 [facility] WBC Auto (Bld) [#/Vol]Ordere d By: Melinda Verduzco on 05-21-2023 WBC (Bld) [#/Vol] 15.1 10*3/uL 4.1-10.5 [facility] CBC AND AUTO DIFFon 04-18-19 ABSOLUTE BASOPHIL 0.1 X10E9/L Normal 0.0-0.2 [facility] Comment on above: Performed By: #### C MP, PINR, 42060-0, 41977-1, CBCA, 96824-3, 28701-4 #### [facility] ([id number]) [address] [place] [address] ABSOLUTE NEUTROPHIL 10.9 X10E9/L High 1.5-6.6 [facility] Comment on above: Performed By: #### C MP, PINR, 26980-0, 33106-6, CBCA, 80033-4, 72038-3 #### [facility] ([id number]) [address] [place] [address] Basophils/100 WBC (Bld) 0.4 % Normal [facility] Comment on above: Performed By: #### C MP, PINR, 53534-3, 37477-2, CBCA, 33611-2, 46825-4 #### [facility] ([id number]) [address] [place] [address] Eosinophils (Bld) [#/Vol] 0.0 10*3/uL Normal 0.0-0.4 [facility] Comment on above: Performed By: #### C MP, PINR, 08971-7, 02842-9, CBCA, 88855-7, 05919-5 #### [facility] ([id number]) [address] [place] [address] Eosinophils/100 WBC (Bld) 0.3 % Normal [facility] Comment on above: Performed By: #### C MP, PINR, 27488-7, 48246-5, CBCA, 55324-4, 88347-2 #### [facility] ([id number]) [address] [place] [address] Erythrocyte distribution width (RBC) [Ratio] 14.2 % Normal 11.5-15.0 [facility] Comment on above: Performed By: #### C MP, PINR, 95802-7, 06864-5, CBCA, 40322-1, 90189-2 #### [facility] ([id number]) [address] [place] [address] Hematocrit (Bld) [Volume fraction] 49.6 % High 39-49 [facility] Comment on above: Performed By: #### C MP, PINR, 15833-7, 66247-9, CBCA, 54031-7, 32588-8 #### [facility] ([id number]) [address] [place] [address] Hemoglobin (Bld) [Mass/Vol] 16.7 g/dL Normal 13.0-17.0 [facility] Comment on above: Performed By: #### C MP, PINR, 78022-2, 57799-1, CBCA, 50277-2, 56674-5 #### [facility] ([id number]) [address] [place] [address] Lymphocytes (Bld) [#/Vol] 1.6 10*3/uL Normal 1.0-3.5 [facility] Comment on above: Performed By: #### C MP, PINR, 90068-0, 97478-7, CBCA, 31484-7, 25411-2 #### [facility] ([id number]) [address] [place] [address] Lymphocytes/100 WBC (Bld) 11.9 % Normal [facility] Comment on above: Performed By: #### C MP, PINR, 37822-4, 85844-2, CBCA, 47744-9, 38196-9 #### [facility] ([id number]) [address] [place] [address] MCH (RBC) [Entitic mass] 34.1 pg High 27-34 [facility] Comment on above: Performed By: #### C MP, PINR, 99874-0, 90763-3, CBCA, 81370-0, 65543-4 #### [facility] ([id number]) [address] [place] [address] MCHC (RBC) [Mass/Vol] 33.7 g/dL Normal 32-36 [facility] Comment on above: Performed By: #### C MP, PINR, 16552-6, 82185-2, CBCA, 61328-6, 37609-4 #### [facility] ([id number]) [address] [place] [address] MCV (RBC) [Entitic vol] 101 fL High 80-100 [facility] Comment on above: Performed By: #### C MP, PINR, 18842-5, 88584-8, CBCA, 18741-0, 27386-9 #### [facility] ([id number]) [address] [place] [address] Monocytes (Bld) [#/Vol] 0.5 10*3/uL Normal 0-0.9 [facility] Comment on above: Performed By: #### C MP, PINR, 80860-7, 10696-0, CBCA, 37042-6, 97631-2 #### [facility] ([id number]) [address] [place] [address] Monocytes/100 WBC (Bld) 3.7 % Normal [facility] Comment on above: Performed By: #### C MP, PINR, 57634-1, 76159-6, CBCA, 94474-4, 30259-9 #### [facility] ([id number]) [address] [place] [address] Neutrophils/100 WBC (Bld) 83.7 % Normal [facility] Comment on above: Performed By: #### C MP, PINR, 82964-7, 33339-8, CBCA, 37993-6, 90586-0 #### [facility] ([id number]) [address] [place] [address] Platelet mean volume (Bld) [Entitic vol] 8.5 fL Normal 7-12 [facility] Comment on above: Performed By: #### C MP, PINR, 13926-3, 11900-6, CBCA, 85286-0, 89422-7 #### [facility] ([id number]) [address] [place] [address] Platelets (Bld) [#/Vol] 264 10*3/uL Normal 150-450 [facility] Comment on above: Performed By: #### C MP, PINR, 36605-1, 03888-7, CBCA, 85643-8, 97048-2 #### [facility] ([id number]) [address] [place] [address] RBC COUNT 4.89 X10E12/L Normal 4.10-5.70 [facility] Comment on above: Performed By: #### C MP, PINR, 71133-6, 34589-8, CBCA, 48036-1, 23466-2 #### [facility] ([id number]) [address] [place] [address] WBC (Bld) [#/Vol] 13.0 10*3/uL High 4.0-11.0 [facility] Comment on above: Performed By: #### C MP, PINR, 26022-2, 76247-5, CBCA, 65116-7, 12859-5 #### [facility] ([id number]) [address] [place] [address] COMPREHENSIVE METABOLIC PANE Jose 04-18-2023 Albumin [Mass/Vol] 4.4 g/dL Normal 3.2-5.3 [facility] Comment on above: Performed By: #### C MP, PINR, 81095-1, 29780-3, CBCA, 16796-5, 26449-7 #### [facility] ([id number]) [address] [place] [address] ALP [Catalytic activity/Vol] 69 U/L Normal 39-130 [facility] Comment on above: Performed By: #### C MP, PINR, 08540-3, 12017-2, CBCA, 32131-2, 06998-4 #### [facility] ([id number]) [address] [place] [address] ALT [Catalytic activity/Vol] 31 U/L Normal 0-40 [facility] Comment on above: Performed By: #### C MP, PINR, 37572-6, 80460-7, CBCA, 96251-4, 64551-6 #### [facility] ([id number]) [address] [place] [address] Anion gap [Moles/Vol] 9 mmol/L Normal 5-15 [facility] Comment on above: Performed By: #### C MP, PINR, 93801-9, 50065-7, CBCA, 33334-0, 51831-3 #### [facility] ([id number]) [address] [place] [address]128 AST [Catalytic activity/Vol] 26 U/L Normal 0-41 [facility] Comment on above: Performed By: #### C MP, PINR, 45770-2, 58683-8, CBCA, 07553-3, 69061-8 #### [facility] ([id number]) [address] [place] [address]3275 Bilirubin [Mass/Vol] 0.8 mg/dL Normal 0.3-1.2 [facility] Comment on above: Performed By: #### C MP, PINR, 89512-2, 65981-2, CBCA, 67560-0, 43109-4 #### [facility] ([id number]) [address] [place] [address]24 Calcium [Mass/Vol] 9.6 mg/dL Normal 8.5-10.5 [facility] Comment on above: Performed By: #### C MP, PINR, 37163-2, 72036-2, CBCA, 40217-2, 30632-2 #### [facility] ([id number]) [address] [place] [address]753 Chloride [Moles/Vol] 99 mmol/L Normal 98-109 [facility] Comment on above: Performed By: #### C MP, PINR, 64092-6, 28902-9, CBCA, 19719-3, 35050-3 #### [facility] ([id number]) [address] [place] [address]25 CO2 [Moles/Vol] 24 mmol/L Normal 22-32 [facility] Comment on above: Performed By: #### C MP, PINR, 83148-9, 10867-3, CBCA, 01547-2, 14014-0 #### [facility] ([id number]) [address] [place] [address]310 Creatinine [Mass/Vol] 1.26 mg/dL High 0.70-1.20 [facility] Comment on above: Result Comment: METH OD TRACEABLE TO IDMS STANDARD Performed By: #### C MP, PINR, 97744-9, 24003-1, CBCA, 38010-8, 23837-6 #### [facility] ([id number]) [address] [place] [address] 40869 GFR/1.73 sq M.predicted among non-blacks MDRD (S/P/Bld) [Vol rate/Area] 64 mL/min/{1.73_m2} Normal >59 [facility] Comment on above: Result Comment: Reported eGFR is based on the CKD-EPI 2020 equation that does not use a race coefficient. Performed By: #### C MP, PINR, 19989-2, 62782-1, CBCA, 11343-3, 23413-0 #### [facility] ([id number]) [address] [place] [address] 63552 Glucose [Mass/Vol] 196 mg/dL High 65-99 [facility] Comment on above: Performed By: #### C VINH, PINR, 57553-5, 20498-3, CBCA, 86512-8, 56492-6 #### [facility] ([id number]) [address] [place] [address]85 Potassium [Moles/Vol] 3.8 mmol/L Normal 3.5-5.0 [facility] Comment on above: Performed By: #### C VINH, PINR, 41807-6, 31264-4, CBCA, 12405-7, 54506-6 #### [facility] ([id number]) [address] [place] [address]58 Protein [Mass/Vol] 7.7 g/dL Normal 6.0-8.0 [facility] Comment on above: Performed By: #### C VINH, PINR, 58798-5, 09137-2, CBCA, 01530-5, 85228-5 #### [facility] ([id number]) [address] [place] [address]6745 Sodium [Moles/Vol] 132 mmol/L Low 134-146 [facility] Comment on above: Performed By: #### C MP, PINR, 80845-4, 68262-8, CBCA, 82189-9, 04162-9 #### [facility] ([id number]) [address] [place] [address] 82081 Urea nitrogen [Mass/Vol] 40 mg/dL High 5-27 [facility] Comment on above: Performed By: #### C MP, PINR, 70275-8, 76157-6, CBCA, 61380-7, 85981-7 #### [facility] ([id number]) [address] [place] [address] MAGNESIUMon 04-18-2023 Magnesium [Mass/Vol] 1.7 mg/dL Low 1.8-2.6 [facility] Comment on above: Performed By: #### C MP, PINR, 19461-8, 28380-0, CBCA, 53137-7, 47292-0 #### [facility] ([id number]) [address] [place] [address] 90995 Natriuretic peptide B [Mass/ Vol]on 04-18-2023 Natriuretic peptide B (Bld) [Mass/Vol] 206 pg/mL High <100.0 [facility] Comment on above: Performed By: #### C MP, PINR, 43967-4, 10678-9, CBCA, 14980-4, 64937-1 #### [facility] ([id number]) [address] [place] [id number] PROTIME AND INRon 04-18-2023 INR Coag (PPP) [Relative time] 1.1 {INR} Normal 0.8-1.1 [facility] Comment on above: Performed By: #### C MP, PINR, 51930-2, 87243-6, CBCA, 93444-4, 99060-8 #### [facility] ([id number]) [address] [place] [address] [id number] PT Coag (PPP) [Time] 12.3 s Normal 9.8-13.2 [facility] Comment on above: Result Comment: NEW REFERENCE RANGE Performed By: #### C MP, PINR, 94998-3, 58027-0, CBCA, 91805-9, 28503-2 #### [facility] ([id number]) [address] [place] [address] 33693 TROPONIN Ion 04-18-2023 Troponin I.cardiac [Mass/Vol] 0.01 ng/mL Normal 0.00-0.04 [facility] Comment on above: Performed By: #### C MP, PINR, 72861-7, 06280-8, CBCA, 93496-9, 57620-7 #### [facility] ([id number]) [address] [place] [address] 13788 aPTT Coag (PPP) [Time]on aPTT Coag (Bld) [Time] 28 s Normal 26-37 [facility] Comment on above: Result Comment: NEW REFERENCE RANGE Performed By: #### C MP, PINR, 61502-2, 99057-1, CBCA, 43062-8, 95263-8 #### [facility] ([id number]) [address] [place] [address] [id number] Basophils Auto (Bld) [#/Vol] Ordered By: Sarai Mendez on 01-29-2023 Basophils (Bld) [#/Vol] 0.1 10*3/uL 0.0-0.2 [facility] Basophils/100 WBC Auto (Bld) Ordered By: Sarai Mendez on 01-29-2023 Basophils/100 WBC (Bld) 0.6 % . [facility] Eosinophils Auto (Bld) [#/Vo l]Ordered By: Sarai Mendez on 01-29-2023 Eosinophils (Bld) [#/Vol] 0.0 10*3/uL 0.0-0.45 [facility] Eosinophils/100 WBC Auto (Bl d)Ordered By: Sarai Mendez on 01-29-2023 Eosinophils/100 WBC (Bld) 0.4 % . [facility] Erythrocyte distribution wid th Auto (RBC) [Ratio]Ordered By: Sarai Mendez on 01-29-2023 Erythrocyte distribution width (RBC) [Ratio] 13.8 % 12.0-14.8 [facility] Hematocrit Auto (Bld) [Volum e fraction]Ordered By: Sarai Mendez on 01-29-2023 Hematocrit (Bld) [Volume fraction] 41.9 % 38.8-50.0 [facility] Hemoglobin [Mass/volume] in BloodOrdered By: Sarai Mendez on 01-29-2023 Hemoglobin (Bld) [Mass/Vol] 14.2 g/dL 13.0-17.0 [facility] Leukocytes [#/volume] correc collins for nucleated erythrocytes in Blood by Automated counOrdered By: Sarai Mendez on 01-29-2023 WBC corrected for nucl RBC Auto (Bld) [#/Vol] 11.9 10*3/uL 4.1-10.5 [facility] Lymphocytes Auto (Bld) [#/Vo l]Ordered By: Sarai Mendez on 01-29-2023 Lymphocytes (Bld) [#/Vol] 1.3 10*3/uL 1.00-4.8 [facility] Lymphocytes/100 WBC Auto (Bl d)Ordered By: Sarai Mendez on 01-29-2023 Lymphocytes/100 WBC (Bld) 10.5 % . [facility] MCH Auto (RBC) [Entitic mass ]Ordered By: Sarai Mendez on 01-29-2023 MCH (RBC) [Entitic mass] 35.8 pg 27.5-35.2 [facility] MCHC Auto (RBC) [Mass/Vol]Or dered By: Sarai Mendez on 01-29-2023 MCHC (RBC) [Mass/Vol] 33.8 g/dL 32.5-35.6 [facility] MCV Auto (RBC) [Entitic vol] Ordered By: Sarai Mendez on 01-29-2023 MCV (RBC) [Entitic vol] 105.8 fL 83.5-101 [facility] [facility] Monocytes Auto (Bld) [#/Vol] Ordered By: Sarai Mendez on 01-29-2023 Monocytes (Bld) [#/Vol] 0.6 10*3/uL 0.0-0.8 [facility] Monocytes/100 WBC Auto (Bld) Ordered By: Sarai Mendez on 01-29-2023 Monocytes/100 WBC (Bld) 5.3 % . [facility] Neutrophils Auto (Bld) [#/Vo l]Ordered By: Sarai Mendez on 01-29-2023 Neutrophils (Bld) [#/Vol] 9.9 10*3/uL 1.8-7.7 [facility] Neutrophils/100 WBC Auto (Bl d)Ordered By: Sarai Mendez on 01-29-2023 Neutrophils/100 WBC (Bld) 83.2 % . [facility] Nucleated erythrocytes [Pres ence] in Blood by Automated countOrdered By: Sarai Mendez on 01-29-2023 Nucleated RBC Auto Ql (Bld) 0.1 /100{WBC} 0-0.5 [facility] Platelet mean volume Auto (B ld) [Entitic vol]Ordered By: Sarai Mendez on 01-29-2023 Platelet mean volume (Bld) [Entitic vol] 8.4 fL 6.6-10.1 [facility] Platelets Auto (Bld) [#/Vol] Ordered By: Sarai Mendez on 01-29-2023 Platelets (Bld) [#/Vol] 187 10*3/uL 150-450 [facility] RBC Auto (Bld) [#/Vol]Ordere d By: Sarai Mendez on 01-29-2023 RBC (Bld) [#/Vol] 3.96 10*6/uL 3.90-5.60 [facility] WBC Auto (Bld) [#/Vol]Ordere d By: Sarai Mendez on 01-29-2023 WBC (Bld) [#/Vol] 11.9 10*3/uL 4.1-10.5 [facility] Bilirubin Test strip Ql (U)O rdered By: Sarai Mendez on 01-26-2023 Bilirubin Ql (U) Negative Negative [facility] Calcium [Mass/volume] in Ser um or PlasmaOrdered By: Sarai Mendez on 01-26-2023 Calcium [Mass/Vol] 9.3 mg/dL 8.6-10.3 [facility] Carbon dioxide, total [Moles /volume] in Serum or PlasmaOrdered By: Sarai Mendez on 01-26-2023 CO2 [Moles/Vol] 28.7 mmol/L 21.0-31.0 [facility] Chloride [Moles/volume] in S ursula or PlasmaOrdered By: Sarai Mendez on 01-26-2023 Chloride [Moles/Vol] 101 mmol/L 98-107 [facility] Color Auto (U)Ordered By: Deborah Mendez on 01-26-2023 Color (U) Yellow Yellow [facility] Creatinine [Mass/volume] in Serum or PlasmaOrdered By: Sarai Mendez on 01-26-2023 Creatinine [Mass/Vol] 1.01 mg/dL 0.70-1.30 [facility] Fructosamine [Moles/volume] in Serum or PlasmaOrdered By: Sarai Mendez on 01-26-2023 Fructosamine [Moles/Vol] 192 umol/L 0-285 [facility] Comment on above: Published reference interval for apparently healthysubjects between age 20 and 60 is 205 - 285 umol/L and in apoorly controlled diabetic population is 228 - 563 umol/Lwith a mean of 396 umol/L.Performed at: [facility] Director: Lucas Cooper PhD, Phone: [phone] Glucose [Mass/volume] in Ser um or PlasmaOrdered By: Sarai Mendez on 01-26-2023 Glucose [Mass/Vol] 126 mg/dL 70-100 [facility] Comment on above: ADA recommended refe rence rangeRandom Glucose Reference Range is dependent on time and content of last meal. Glucose of more than 200 mg/dL in a nonstressed, ambulatory subject supports the diagnosis of Diabetes Mellitus. Ketones Auto test strip (U) [Mass/Vol]Ordered By: Sarai Mendez on 01-26-2023 Ketones (U) [Mass/Vol] Negative Negative [facility] Nitrite Test strip Ql (U)Ord ered By: Sarai Mendez on 01-26-2023 Nitrite Ql (U) Negative Negative [facility] No Panel InformationOrdered By: Sarai Mendez on 01-26-2023 Estimated GFR (CKD-EPI) > 60.0 mL/Min [facility] Creatinine Clearance (Chem N/A [facility] Potassium [Moles/volume] in Serum or PlasmaOrdered By: Sarai Mendez on 01-26-2023 Potassium [Moles/Vol] 4.2 mmol/L 3.5-5.1 [facility] Protein Auto test strip (U) [Mass/Vol]Ordered By: Sarai Mendez on 01-26-2023 Protein (U) [Mass/Vol] Negative Negative [facility] Serum or plasma anion gap de terminationOrdered By: Sarai Mendez on 01-26-2023 Anion gap [Moles/Vol] 10.5 mmol/L 6.0-15.0 [facility] Sodium [Moles/volume] in Ser um or PlasmaOrdered By: Sarai Mendez on 01-26-2023 Sodium [Moles/Vol] 136 mmol/L 136-145 [facility] Specific gravity Auto test s trip (U) [Rel density]Ordered By: Sarai Mendez on 01-26-2023 Specific gravity (U) [Rel density] 1.019 1.001-1.03 0 [facility] Urea nitrogen [Mass/volume] in Serum or PlasmaOrdered By: Sarai Mendez on 01-26-2023 Urea nitrogen [Mass/Vol] 21 mg/dL 7-25 [facility] Urine clarity by refractomet ry automatedOrdered By: Sarai Mendez on 01-26-2023 Clarity Refractometry automated (U) Clear Clear [facility] Urine glucose measurement by automated test strip (mass/volume)Ordered By: Sarai Mendez on 01-26-2023 Glucose Auto test strip (U) [Mass/Vol] Normal mg/dL Normal [facility] Urine hemoglobin detection b y automated test stripOrdered By: Sarai Mendez on 01-26-2023 Hemoglobin Auto test strip Ql (U) Negative Negative [facility] Urine leukocyte esterase det ection by automated test stripOrdered By: Sarai Mendez on 01-26-2023 Leukocyte esterase Auto test strip Ql (U) Negative Negative [facility] Urobilinogen Auto test strip (U) [Mass/Vol]Ordered By: Sarai Mendez on 01-26-2023 Urobilinogen (U) [Mass/Vol] Normal mg/dL Normal [facility] pH Auto test strip (U)Ordere d By: Sarai Mendez on 01-26-2023 pH (U) 7.0 [pH] 5.0-9.0 [facility] C-REACTIVE PROTEIN (CRP)on 0 01-06-2023 CRP [Mass/Vol] <0.9 mg/dL [facility] CK CREATINE KINASEon 023 CK [Catalytic activity/Vol] 35 U/L Low 51 - 298 U/L [facility] Comprehensive metabolic 2000 panelon 01-06-2023 Albumin [Mass/Vol] 4.9 g/dL 3.9 - 4.9 g/dL [facility] ALP [Catalytic activity/Vol] 57 U/L 38 - 113 U/L [facility] ALT [Catalytic activity/Vol] 27 U/L 10 - 54 U/L [facility] Anion gap [Moles/Vol] 15 mmol/L 9 - 18 mmol/L [facility] AST [Catalytic activity/Vol] 16 U/L 14 - 40 U/L [facility] Bilirubin [Mass/Vol] 0.7 mg/dL 0.2 - 1 .3 mg/dL [facility] Calcium [Mass/Vol] 10.3 mg/dL High 8.5 - 10. 2 mg/dL [facility] Chloride [Moles/Vol] 98 mmol/L 97 - 10 5 mmol/L [facility] CO2 [Moles/Vol] 24 mmol/L 22 - 30 mmol/L [facility] Creatinine [Mass/Vol] 0.98 mg/dL 0.73 - 1.22 mg/dL [facility] Estimated Glomerular Filtration Rate 87 mL/min/1.73m >=60 mL/min/1.7 3m [facility] Glucose [Mass/Vol] 120 mg/dL High 74 - 99 mg/dL [facility] Potassium [Moles/Vol] 4.3 mmol/L 3.7 - 5.1 mmol/L [facility] Protein [Mass/Vol] 7.1 g/dL 6.3 - 8.0 g/dL [facility] Sodium [Moles/Vol] 137 mmol/L 136 - 144 [facility] Urea nitrogen [Mass/Vol] 20 mg/dL 9 - 24 mg/dL [facility] RHEUMATOID FACTOR BLon 01-06 Rheumatoid factor Qn <16 IU/mL [facility] URIC ACID BLOODon 01-06-2023 Urate [Mass/Vol] 6.1 mg/dL 4.0 - 8.1 mg/dL [facility] VITAMIN B12 BLOODon 01-07-20 Cobalamin (Vitamin B12) [Mass/Vol] 343 pg/mL 232 - 1,245 pg/mL [facility] CBC panel Auto (Bld)on 01-05 Erythrocyte distribution width (RBC) [Ratio] 12.9 % 11.5 - 15.0 % [facility] Hematocrit (Bld) [Volume fraction] 48.7 % 39.0 - 51.0 % [facility] Hemoglobin (Bld) [Mass/Vol] 16.3 g/dL 13.0 - 17.0 g/dL [facility] MCH (RBC) [Entitic mass] 35.6 pg High 26.0 - 34.0 pg [facility] MCHC (RBC) [Mass/Vol] 33.5 g/dL 30.5 - 36.0 g/dL [facility] MCV (RBC) [Entitic vol] 106.3 fL High 80.0 - 100.0 fL [facility] Nucleated RBC (Bld) [#/Vol] <0.01 k/uL [facility] Platelet mean volume (Bld) [Entitic vol] 10.7 fL 9.0 - 12.7 fL [facility] Platelets (Bld) [#/Vol] 207 10*3/uL 150 - 400 k/uL [facility] RBC (Bld) [#/Vol] 4.58 10*6/uL 4.20 - 6.00 m/uL [facility] WBC (Bld) [#/Vol] 12.21 10*3/uL High 3.70 - 11.00 k/uL [facility] ESR Westergren method (Bld) [Velocity]on 01-05-2023 ESR (Bld) [Velocity] 2 mm/h 0 - 15 mm/hr [facility] Albumin [Mass/volume] in Ser um or Plasma by Bromocresol green (BCG) dye binding methoOrdered By: Sarai Mendez on 11-13-2022 Albumin BCG dye [Mass/Vol] 4.3 g/dL 3.5-5.7 [facility] Glucose mean value [Mass/vol ume] in Blood Estimated from glycated hemoglobinOrdered By: Sarai Mendez on 11-13-2022 Average glucose Estimated from glycated hemoglobin (Bld) [Mass/Vol] 114 mg/dL [facility] Hemoglobin A1c percentageOrd ered By: Sarai Mendez on 11-13-2022 HbA1c (Bld) [Mass fraction] 5.6 % 4.3-5.6 [facility] Comment on above: Increased risk for d iabetes: 5.7 - 6.4diabetes: >6.4glycemic control for adults with diabetes: <7.0 Hemoglobin [Mass/volume] in BloodOrdered By: Sarai Mendez on 11-13-2022 Hemoglobin (Bld) [Mass/Vol] 14.7 g/dL 13.0-17.0 [facility] Vitamin D+Metabolites [Mass/ volume] in Serum or PlasmaOrdered By: Sarai Mendez on 11-13-2022 Vitamin D+Metabolites [Mass/Vol] 13.3 ng/mL 30-100 [facility] Comment on above: VITAMIN D STATUS 25( [place])VITAMIN D RANGE (ng/mL) Deficient <20 Insufficient 20 to <30Sufficient 30 to 100Reference: Ras VÁZQUEZ,Tanika STILES, Sergio DELGADILLO, et al. Evaluation,treatment, and prevention of vitamin D deficiency; an Endocrine Society clinical practice guideline. JCEM. 2010; 96(7):1911-30. Activated partial thrombopla stin time (aPTT) in platelet poor plasma by coagulation aOrdered By: Damien Holbrook on 10-11-2022 aPTT Coag (PPP) [Time] 24.5 s 25.1-36.5 [facility] Alanine aminotransferase [En zymatic activity/volume] in Serum or PlasmaOrdered By: Damien Holbrook on 10-11-2022 ALT [Catalytic activity/Vol] 37 U/L 7-52 [facility] Albumin [Mass/volume] in Ser um or Plasma by Bromocresol green (BCG) dye binding methoOrdered By: Damien Holbrook on 10-11-2022 Albumin BCG dye [Mass/Vol] 4.3 g/dL 3.5-5.7 [facility] Alkaline phosphatase [Enzyma tic activity/volume] in Serum or PlasmaOrdered By: Damien Holbrook on 10-11-2022 ALP [Catalytic activity/Vol] 51 U/L 34-104 [facility] Aspartate aminotransferase [ Enzymatic activity/volume] in Serum or PlasmaOrdered By: Damien Holbrook on 10-11-2022 AST [Catalytic activity/Vol] 26 U/L 13-39 [facility] Automated erythrocytes count in urine sediment (number/area)Ordered By: Damien Holbrook on 10-11-2022 RBC Auto (Urine sed) [#/Area] 3-4 [HPF] 0-4 [facility] Automated leukocytes count i n urine sediment (number/area)Ordered By: Damien Holbrook on 10-11-2022 WBC Auto (Urine sed) [#/Area] 3-4 [HPF] 0-4 [facility] Automated urine hyaline cast s count (number/volume)Ordered By: Damien Holbrook on 10-11-2022 Hyaline casts Auto (U) [#/Vol] 20-49 [LPF] 0-1 [facility] Basophils Auto (Bld) [#/Vol] Ordered By: Damien Holbrook on 10-11-2022 Basophils (Bld) [#/Vol] 0.1 10*3/uL 0.0-0.2 [facility] Basophils/100 WBC Auto (Bld) Ordered By: Damien Holbrook on 10-11-2022 Basophils/100 WBC (Bld) 1.1 % . [facility] Bilirubin Test strip Ql (U)O rdered By: Damien Holbrook on 10-11-2022 Bilirubin Ql (U) 1+ Negative [facility] Bilirubin.total [Mass/volume ] in Serum or PlasmaOrdered By: Damien Holbrook on 10-11-2022 Bilirubin [Mass/Vol] 1.0 mg/dL 0.3-1.0 [facility] Calcium [Mass/volume] in Ser um or PlasmaOrdered By: Damien Holbrook on 10-11-2022 Calcium [Mass/Vol] 9.7 mg/dL 8.6-10.3 [facility] Carbon dioxide, total [Moles /volume] in Serum or PlasmaOrdered By: Damien Holbrook on 10-11-2022 CO2 [Moles/Vol] 27.5 mmol/L 21.0-31.0 [facility] Chloride [Moles/volume] in S ursula or PlasmaOrdered By: Damien Holbrook on 10-11-2022 Chloride [Moles/Vol] 101 mmol/L 98-107 [facility] Color Auto (U)Ordered By: Gregor Holbrook on 10-11-2022 Color (U) Dark yellow Yellow [facility] Creatinine [Mass/volume] in Serum or PlasmaOrdered By: Damien Holbrook on 10-11-2022 Creatinine [Mass/Vol] 1.25 mg/dL 0.70-1.30 [facility] Eosinophils Auto (Bld) [#/Vo l]Ordered By: Damien Holbrook on 10-11-2022 Eosinophils (Bld) [#/Vol] 0.0 10*3/uL 0.0-0.45 [facility] Eosinophils/100 WBC Auto (Bl d)Ordered By: Damien Holbrook on 10-11-2022 Eosinophils/100 WBC (Bld) 0.4 % . [facility] Erythrocyte distribution wid th Auto (RBC) [Ratio]Ordered By: Damien Holbrook on 10-11-2022 Erythrocyte distribution width (RBC) [Ratio] 14.4 % 12.0-14.8 [facility] Globulin Calc (S) [Mass/Vol] Ordered By: Damien Holbrook 10-11-2022 Globulin (S) [Mass/Vol] 2.8 g/dL [facility] Glucose [Mass/volume] in Ser um or PlasmaOrdered By: Damien Holbrook on 10-11-2022 Glucose [Mass/Vol] 128 mg/dL 70-100 [facility] Comment on above: ADA recommended refe rence rangeRandom Glucose Reference Range is dependent on time and content of last meal. Glucose of more than 200 mg/dL in a nonstressed, ambulatory subject supports the diagnosis of Diabetes Mellitus. Hematocrit Auto (Bld) [Volum e fraction]Ordered By: Damien Holbrook on 10-11-2022 Hematocrit (Bld) [Volume fraction] 45.3 % 38.8-50.0 [facility] Hemoglobin [Mass/volume] in BloodOrdered By: Damien Holbrook on 10-11-2022 Hemoglobin (Bld) [Mass/Vol] 15.5 g/dL 13.0-17.0 [facility] Ketones Auto test strip (U) [Mass/Vol]Ordered By: Damien Holbrook on 10-11-2022 Ketones (U) [Mass/Vol] Trace Negative Fi [facility] - CoagulationOrde red By: Damien Holbrook on 10-11-2022 PT Coag (PPP) [Time] 11.8 s 9.0-12.9 [facility] Leukocytes [#/volume] correc collins for nucleated erythrocytes in Blood by Automated counOrdered By: Damien Holbrook on 10-11-2022 WBC corrected for nucl RBC Auto (Bld) [#/Vol] 11.9 10*3/uL 4.1-10.5 [facility] Lymphocytes Auto (Bld) [#/Vo l]Ordered By: Damien Holbrook on 10-11-2022 Lymphocytes (Bld) [#/Vol] 1.5 10*3/uL 1.00-4.8 [facility] Lymphocytes/100 WBC Auto (Bl d)Ordered By: Damien Holbrook on 10-11-2022 Lymphocytes/100 WBC (Bld) 13.0 % . [facility] MCH Auto (RBC) [Entitic mass ]Ordered By: Damien Holbrook on 10-11-2022 MCH (RBC) [Entitic mass] 35.3 pg 27.5-35.2 [facility] MCHC Auto (RBC) [Mass/Vol]Or dered By: Damien Holbrook on 10-11-2022 MCHC (RBC) [Mass/Vol] 34.2 g/dL 32.5-35.6 [facility] MCV Auto (RBC) [Entitic vol] Ordered By: Damien Holbrook on 10-11-2022 MCV (RBC) [Entitic vol] 103.4 fL 83.5-101 [facility] Magnesium [Mass/volume] in S ursula or PlasmaOrdered By: Damien Holbrook on 10-11-2022 Magnesium [Mass/Vol] 1.6 mg/dL 1.9-2.7 [facility] Monocyte distribution width [Entitic volume] in Blood by AutomatedOrdered By: Damien Holbrook on 10-11-2022 Monocyte distribution width Auto (Bld) [Entitic vol] 21.21 % 0.00-20.00 [facility] Comment on above: For adults in ED, MD W > 20.0 may be associated with a higher risk of sepsis during the first 12 hrs of hospital admission Monocytes Auto (Bld) [#/Vol] Ordered By: Damien Holbrook on 10-11-2022 Monocytes (Bld) [#/Vol] 1.1 10*3/uL 0.0-0.8 [facility] Monocytes/100 WBC Auto (Bld) Ordered By: Damien Holbrook on 10-11-2022 Monocytes/100 WBC (Bld) 9.1 % . [facility] Natriuretic peptide B [Mass/ Vol]Ordered By: Damien Holbrook on 10-11-2022 Natriuretic peptide B (Bld) [Mass/Vol] 206.0 pg/mL 5-100 [facility] Neutrophils Auto (Bld) [#/Vo l]Ordered By: Damien Holbrook on 10-11-2022 Neutrophils (Bld) [#/Vol] 9.1 10*3/uL 1.8-7.7 [facility] Neutrophils/100 WBC Auto (Bl d)Ordered By: Damien Holbrook on 10-11-2022 Neutrophils/100 WBC (Bld) 76.4 % . [facility] Nitrite Test strip Ql (U)Ord ered By: Damien Holbrook on 10-11-2022 Nitrite Ql (U) Negative Negative [facility] No Panel InformationOrdered By: Damien Holbrook on 10-11-2022 Estimated GFR (CKD-EPI) > 60.0 mL/Min [facility] Creatinine Clearance (Chem N/A [facility] Nucleated erythrocytes [Pres ence] in Blood by Automated countOrdered By: Damien Holbrook on 10-11-2022 Nucleated RBC Auto Ql (Bld) 0.1 /100{WBC} 0-0.5 [facility] Platelet mean volume Auto (B ld) [Entitic vol]Ordered By: Damien Holbrook on 10-11-2022 Platelet mean volume (Bld) [Entitic vol] 8.6 fL 6.6-10.1 [facility] Platelet poor plasma interna tional normalized ratio (INR) by coagulation assay (relatOrdered By: Damien Holbrook on 10-11-2022 INR Coag (PPP) [Relative time] 1.0 {INR} [facility] Comment on above: INR Therapeutic Rang e [...] 10-11-2022 Platelets (Bld) [#/Vol] 197 10*3/uL 150-450 [facility] Potassium [Moles/volume] in Serum or PlasmaOrdered By: Damien Holbrook on 10-11-2022 Potassium [Moles/Vol] 4.0 mmol/L 3.5-5.1 [facility] Protein Auto test strip (U) [Mass/Vol]Ordered By: Damien Holbrook on 10-11-2022 Protein (U) [Mass/Vol] 100 mg/dL Negative [facility] Protein [Mass/volume] in Ser um or PlasmaOrdered By: Damien Holbrook on 10-11-2022 Protein [Mass/Vol] 7.1 g/dL 6.4-8.9 [facility] RBC Auto (Bld) [#/Vol]Ordere d By: Damien Holbrook on 10-11-2022 RBC (Bld) [#/Vol] 4.38 10*6/uL 3.90-5.60 [facility] Serum or plasma albumin/glob ulin mass ratioOrdered By: Damien Holbrook on 10-11-2022 Albumin/Globulin [Mass ratio] 1.5 {ratio} [facility] Serum or plasma anion gap de terminationOrdered By: Damien Holbrook on 10-11-2022 Anion gap [Moles/Vol] 12.5 mmol/L 6.0-15.0 [facility] Sodium [Moles/volume] in Ser um or PlasmaOrdered By: Damien Holbrook on 10-11-2022 Sodium [Moles/Vol] 137 mmol/L 136-145 [facility] Specific gravity Auto test s trip (U) [Rel density]Ordered By: Damien Holbrook on 10-11-2022 Specific gravity (U) [Rel density] 1.027 1.001-1.03 0 [facility] Squamous epithelial cells de tection in urine sediment by light microscopyOrdered By: Damien Holbrook on 10-11-2022 Epithelial cells.squamous LM Ql (Urine sed) 0-1 [HPF] 0-2 [facility] Troponin I.cardiac [Mass/vol ume] in Serum or Plasma by Detection limit <= 0.01 ng/Ordered By: Damien Holbrook on 10-11-2022 Troponin I.cardiac DL <= 0.01 ng/mL [Mass/Vol] 17.7 pg/mL 0.0-20.0 [facility] Urea nitrogen [Mass/volume] in Serum or PlasmaOrdered By: Damien Holbrook on 10-11-2022 Urea nitrogen [Mass/Vol] 19 mg/dL 7-25 [facility] Urine bacteria detection by automated methodOrdered By: Damien Holbrook on 10-11-2022 Bacteria Auto Ql (U) None seen None Seen [facility] Urine clarity by refractomet ry automatedOrdered By: Damien Holbrook on 10-11-2022 Clarity Refractometry automated (U) Cloudy Clear [facility] Urine glucose measurement by automated test strip (mass/volume)Ordered By: Damien Holbrook on 10-11-2022 Glucose Auto test strip (U) [Mass/Vol] Normal mg/dL Normal [facility] Urine hemoglobin detection b y automated test stripOrdered By: Damien Holbrook on 10-11-2022 Hemoglobin Auto test strip Ql (U) Negative Negative [facility] Urine leukocyte esterase det ection by automated test stripOrdered By: Damien Holbrook on 10-11-2022 Leukocyte esterase Auto test strip Ql (U) 1+ Negative [facility] Urobilinogen Auto test strip (U) [Mass/Vol]Ordered By: Damien Holbrook on 10-11-2022 Urobilinogen (U) [Mass/Vol] Normal mg/dL Normal [facility] WBC Auto (Bld) [#/Vol]Ordere d By: Damien Holbrook on 10-11-2022 WBC (Bld) [#/Vol] 11.9 10*3/uL 4.1-10.5 [facility] pH Auto test strip (U)Ordere d By: Damien Holbrook on 10-11-2022 pH (U) 5.5 [pH] 5.0-9.0 [facility] Automated erythrocytes count in urine sediment (number/area)Ordered By: Sarai Georges on 10-02-2022 RBC Auto (Urine sed) [#/Area] 1-2 [HPF] 0-4 [facility] Automated leukocytes count i n urine sediment (number/area)Ordered By: Sarai Georges on 10-02-2022 WBC Auto (Urine sed) [#/Area] None seen [HPF] 0-4 [facility] Basophils Auto (Bld) [#/Vol] Ordered By: Sarai Georges on 10-02-2022 Basophils (Bld) [#/Vol] 0.1 10*3/uL 0.0-0.2 [facility] Basophils/100 WBC Auto (Bld) Ordered By: Sarai Georges on 10-02-2022 Basophils/100 WBC (Bld) 0.6 % . [facility] Bilirubin Auto test strip Ql (U)Ordered By: Sarai Georges on 10-02-2022 Bilirubin Ql (U) Negative Negative [facility] C reactive protein [Mass/vol ume] in Serum or PlasmaOrdered By: Sarai Georges on 10-02-2022 CRP [Mass/Vol] 0.5 mg/dL 0.0-0.5 [facility] Creatine kinase [Enzymatic a ctivity/volume] in Serum or PlasmaOrdered By: Sarai Georges on 10-02-2022 CK [Catalytic activity/Vol] 52 U/L 30-223 [facility] Creatinine [Mass/volume] in Serum or PlasmaOrdered By: Sarai Georges on 10-02-2022 Creatinine [Mass/Vol] 1.00 mg/dL 0.70-1.30 [facility] DNA double strand Ab [Units/ volume] in SerumOrdered By: Sarai Georges on 10-02-2022 DNA double strand Ab Qn (S) [IU]/mL 0-9 [facility] Comment on above: Negative <5 Equivoca l 5 - 9 Positive >9Performed at: - [facility] [id number] [place], [place] [id number] Director: Lucas Cooper PhD, Phone: [phone] Eosinophils Auto (Bld) [#/Vo l]Ordered By: Sarai Georges on 10-02-2022 Eosinophils (Bld) [#/Vol] 0.0 10*3/uL 0.0-0.45 [facility] Eosinophils/100 WBC Auto (Bl d)Ordered By: Sarai Georges on 10-02-2022 Eosinophils/100 WBC (Bld) 0.5 % . [facility] Erythrocyte distribution wid th Auto (RBC) [Ratio]Ordered By: Sarai Georges on 10-02-2022 Erythrocyte distribution width (RBC) [Ratio] 14.9 % 12.0-14.8 [facility] Erythrocyte sedimentation ra te by Photometric methodOrdered By: Sarai Georges on 10-02-2022 ESR Photometric method (Bld) [Velocity] 16 mm/hr 0-19 [facility] Hematocrit Auto (Bld) [Volum e fraction]Ordered By: Sarai Georges on 10-02-2022 Hematocrit (Bld) [Volume fraction] 41.2 % 38.8-50.0 [facility] Hemoglobin [Mass/volume] in BloodOrdered By: Sarai Georges on 10-02-2022 Hemoglobin (Bld) [Mass/Vol] 14.0 g/dL 13.0-17.0 [facility] Ketones Auto test strip (U) [Mass/Vol]Ordered By: Sarai Georges on 10-02-2022 Ketones (U) [Mass/Vol] Negative Negative [facility] - UrinalysisOrder ed By: Sarai Georges on 10-02-2022 Hyaline casts LM Ql (Urine sed) 0-8 [LPF] 0-8 [facility] Leukocytes [#/volume] correc collins for nucleated erythrocytes in Blood by Automated counOrdered By: Sarai Georges on 10-02-2022 WBC corrected for nucl RBC Auto (Bld) [#/Vol] 9.5 10*3/uL 4.1-10.5 [facility] Lymphocytes Auto (Bld) [#/Vo l]Ordered By: Sarai Georges on 10-02-2022 Lymphocytes (Bld) [#/Vol] 1.7 10*3/uL 1.00-4.8 [facility] Lymphocytes/100 WBC Auto (Bl d)Ordered By: Sarai Georges on 10-02-2022 Lymphocytes/100 WBC (Bld) 18.5 % . [facility] MCH Auto (RBC) [Entitic mass ]Ordered By: Sarai Georges on 10-02-2022 MCH (RBC) [Entitic mass] 35.4 pg 27.5-35.2 [facility] MCHC Auto (RBC) [Mass/Vol]Or dered By: Sarai Georges on 10-02-2022 MCHC (RBC) [Mass/Vol] 33.9 g/dL 32.5-35.6 [facility] MCV Auto (RBC) [Entitic vol] Ordered By: Sarai Georges on 10-02-2022 MCV (RBC) [Entitic vol] 104.5 fL 83.5-101 [facility] Monocytes Auto (Bld) [#/Vol] Ordered By: Sarai Georges on 10-02-2022 Monocytes (Bld) [#/Vol] 0.7 10*3/uL 0.0-0.8 [facility] Monocytes/100 WBC Auto (Bld) Ordered By: Sarai Georges on 10-02-2022 Monocytes/100 WBC (Bld) 7.2 % . [facility] Neutrophils Auto (Bld) [#/Vo l]Ordered By: Sarai Georges on 10-02-2022 Neutrophils (Bld) [#/Vol] 6.9 10*3/uL 1.8-7.7 [facility] Neutrophils/100 WBC Auto (Bl d)Ordered By: Sarai Georges on 10-02-2022 Neutrophils/100 WBC (Bld) 73.2 % . [facility] No Panel InformationOrdered By: Sarai Georges on 10-02-2022 Estimated GFR (CKD-EPI) > 60.0 mL/Min [facility] Creatinine Clearance (Chem N/A [facility] Total Complement (CH50) >60 U/mL >41 [facility] Comment on above: Age Male Female 1 [...] to determine out of range values.Performed at: [place] [id number] Director: Lucas Cooper PhD, Phone: [phone] Nucleated erythrocytes [Pres ence] in Blood by Automated countOrdered By: Sarai Georges on 10-02-2022 Nucleated RBC Auto Ql (Bld) 0.1 /100{WBC} 0-0.5 [facility] Platelet mean volume Auto (B ld) [Entitic vol]Ordered By: Sarai Georges on 10-02-2022 Platelet mean volume (Bld) [Entitic vol] 8.9 fL 6.6-10.1 [facility] Platelets Auto (Bld) [#/Vol] Ordered By: Sarai Georges on 10-02-2022 Platelets (Bld) [#/Vol] 201 10*3/uL 150-450 [facility] Protein Auto test strip (U) [Mass/Vol]Ordered By: Sarai Georges on 10-02-2022 Protein (U) [Mass/Vol] Negative Negative [facility] RBC Auto (Bld) [#/Vol]Ordere d By: Sarai Georges on 10-02-2022 RBC (Bld) [#/Vol] 3.94 10*6/uL 3.90-5.60 [facility] Serum Corona extractable nucl ear antigen (OPAL) antibody assay (units/volume)Ordered By: Sarai Georges on 10-02-2022 Corona extractable nuclear Ab Qn (S) <0.2 AI 0.0-0.9 [facility] Serum or plasma complement C 3 measurement (mass/volume)Ordered By: Sarai Georges on 10-02-2022 Complement C3 [Mass/Vol] 147 mg/dL 82-167 [facility] Comment on above: Performed at: - [address] [id number] Director: Lucas Cooper PhD, Phone: [phone] Serum or plasma complement C 4 measurement (mass/volume)Ordered By: Sarai Georges on 10-02-2022 Complement C4 [Mass/Vol] 29 mg/dL 12-38 [facility] Squamous epithelial cells de tection in urine sediment by light microscopyOrdered By: Sarai Georges on 10-02-2022 Epithelial cells.squamous LM Ql (Urine sed) None seen [HPF] 0-2 [facility] Urine appearanceOrdered By: Sarai Georges on 10-02-2022 Appearance (U) Clear Clear [facility] Urine bacteria detection by automated methodOrdered By: Sarai Georges on 10-02-2022 Bacteria Auto Ql (U) None seen None Seen [facility] Urine colorOrdered By: Tyler Georges on 10-02-2022 Color (U) Yellow Yellow [facility] Urine glucose measurement by automated test strip (mass/volume)Ordered By: Sarai Georges on 10-02-2022 Glucose Auto test strip (U) [Mass/Vol] Normal mg/dL Normal [facility] Urine hemoglobin detection b y automated test stripOrdered By: Sarai Georges on 10-02-2022 Hemoglobin Auto test strip Ql (U) Negative Negative [facility] Urine leukocyte esterase det ection by automated test stripOrdered By: Sarai Georges on 10-02-2022 Leukocyte esterase Auto test strip Ql (U) Negative Negative [facility] Urine nitrite detection by a utomated test stripOrdered By: Sarai Georges on 10-02-2022 Nitrite Auto test strip Ql (U) Negative Negative [facility] Urobilinogen Auto test strip (U) [Mass/Vol]Ordered By: Sarai Georges on 10-02-2022 Urobilinogen (U) [Mass/Vol] Normal mg/dL Normal [facility] WBC Auto (Bld) [#/Vol]Ordere d By: Sarai Georges on 10-02-2022 WBC (Bld) [#/Vol] 9.5 10*3/uL 4.1-10.5 [facility] pH Auto test strip (U)Ordere d By: Sarai Georges on 10-02-2022 pH (U) 1.015 [pH] 1.001-1.03 0 [facility] pH (U) 6.5 [pH] 5.0-9.0 [facility] RETICULOCYTEon 07-31-2022 RETIC 3.90 % Critically high 0.60-3.10 [facility] Comment on above: Performed By: #### R ETIC #### [facility] [address] [place] [address] Dr. Tracy Hubbard VIT B12 AND FOLATEon 023 Cobalamin (Vitamin B12) [Mass/Vol] 436.0 pg/mL Normal 193.0-986. 0 [facility] Comment on above: Performed By: #### B 12FOL #### [facility] [address] [address] [address] Tracy Hubbard FOLATE 17.10 ng/mL Normal 8.60-58.90 [facility] Comment on above: Performed By: #### B 12FOL #### [facility] [address] [address] [address] Tracy Hubbard CBC AUTO DIFFon 07-29-2022 BASO # 0.1 103/ul Normal 0.0-0.1 [facility] Comment on above: Performed By: #### C BC #### [facility] [address] [address] [address] Tracy Hubbard Basophils/100 WBC (Bld) 0.7 % Normal 0.2-2.0 [facility] Comment on above: Performed By: #### C BC #### [facility] [address] [address] [address] Tracy Hubbard EO # 0.1 103/ul Normal 0.0-0.7 [facility] Comment on above: Performed By: #### C BC #### [facility] [address] [place] [address] Dr. Tracy Hubbard Eosinophils/100 WBC (Bld) 1.7 % Normal 0.9-7.0 [facility] Comment on above: Performed By: #### C BC #### [facility] [address] [place] [address] Dr. Tracy Hubbard Erythrocyte distribution width (RBC) [Ratio] 12.8 % Normal 11.0-15.0 [facility] Comment on above: Performed By: #### C BC #### [facility] [address] [place] [address] Dr. Tracy Hubbard Hematocrit (Bld) [Volume fraction] 44.6 % Normal 42.0-54.0 [facility] Comment on above: Performed By: #### C BC #### [facility] [address] [place] [address] Dr. Tracy Hubbard Hemoglobin (Bld) [Mass/Vol] 15.5 g/dL Normal 14.0-18.0 [facility] Comment on above: Performed By: #### C BC #### [facility] [address] [place] [address] Dr. Tracy Hubbard IG # 0.03 10e3/ul Normal 0.00-0.03 [facility] Comment on above: Performed By: #### C BC #### [facility] [address] [place] [address] Dr. Tracy Hubbard IG % 0.4 % Normal 0.0-0.5 [facility] Comment on above: Performed By: #### C BC #### [facility] [address] [place] [address] Dr. Tracy Hubbard LYMPH # 1.7 103/ul Normal 1.2-3.8 [facility] Comment on above: Performed By: #### C BC #### [facility] [address] [place] [address] Dr. Tracy Hubbard Lymphocytes/100 WBC (Bld) 24.8 % Normal 20.5-60.0 [facility] Comment on above: Performed By: #### C BC #### [facility] [address] [place] [address] Dr. Tracy Hubbard MANUAL DIFF REQ NO Normal [facility] Comment on above: Performed By: #### C BC #### [facility] [address] [place] [address] Dr. Tracy Hubbard MCH (RBC) [Entitic mass] 35.7 pg Critically high 25.9-34.0 [facility] Comment on above: Performed By: #### C BC #### [facility] [address] [place] [address] Dr. Tracy Hubbard MCHC (RBC) [Mass/Vol] 34.8 g/dL Normal 29.9-35.2 [facility] Comment on above: Performed By: #### C BC #### [facility] [address] [place] [address] Dr. Tracy Hubbard MCV (RBC) [Entitic vol] 102.8 fL Critically high 80.0-94.0 [facility] Comment on above: Performed By: #### C BC #### [facility] [address] [place] [address] Dr. Tracy Hubbard MONO # 0.7 103/ul Normal 0.3-0.8 [facility] Comment on above: Performed By: #### C BC #### [facility] [address] [place] [address] Dr. Tracy Hubbard Monocytes/100 WBC (Bld) 9.8 % Normal 1.7-12.0 [facility] Comment on above: Performed By: #### C BC #### [facility] [address] [place] [address] Dr. Tracy Hubbard NEUT # 4.4 103/ul Normal 1.4-6.5 [facility] Comment on above: Performed By: #### C BC #### [facility] [address] [place] [address] Dr. Tracy Hubbard Neutrophils/100 WBC (Bld) 62.6 % Normal 43.0-75.0 [facility] Comment on above: Performed By: #### C BC #### [facility] [address] [address] [address] Tracy Hubbard Platelet mean volume (Bld) [Entitic vol] 10.3 fL Normal 9.5-13.5 [facility] Comment on above: Performed By: #### C BC #### [facility] [address] [address] [address] Tracy Hubbard PLT 182 103/ul Normal 150-450 [facility] Comment on above: Performed By: #### C BC #### [facility] [address] [address] [address] Tracy Hubbard RBC 4.34 106/ul Critically low 4.70-6.10 [facility] Comment on above: Performed By: #### C BC #### [facility] [address] [address] [address] Tracy Hubbard WBC 7.0 103/ul Normal 4.0-11.0 [facility] Comment on above: Performed By: #### C BC #### [facility] [address] [address] [address] Tracy Hubbard CPKon 07-29-2022 CK [Catalytic activity/Vol] 84 U/L Normal 39-308 [facility] Comment on above: Performed By: #### C MP, CRP, TSH, LIPID, CK #### [facility] [address] [address] [address] Tracy Hubbard CRPon 07-29-2022 CRP [Mass/Vol] mg/L Normal <=1.0 [facility] Comment on above: Performed By: #### C MP, CRP, TSH, LIPID, CK #### [facility] [address] [address] [address] Tracy Hubbard LIPID PROFILEon 07-29-2022 CHOL-HDL RATIO NORM SEE BELOW Normal [facility] Comment on above: Result Comment: 3.3 - 4.4 LOW RISK 4.4 - 7.1 AVERAGE RISK 7.1 - 11.0 MODERATE RISK >11.0 HIGH RISK Performed By: #### C MP, CRP, TSH, LIPID, CK #### [facility] [address] [address] [address] Tracy Hubbard Cholesterol [Mass/Vol] 145 mg/dL Normal <=200 [facility] Comment on above: Performed By: #### C MP, CRP, TSH, LIPID, CK #### [facility] [address] [address] [address] Tracy Hubbard Cholesterol in HDL [Mass/Vol] 45 mg/dL Normal 40-60 [facility] Comment on above: Performed By: #### C MP, CRP, TSH, LIPID, CK #### [facility] [address] [address] [address] Tracy Hubbard Cholesterol in LDL [Mass/Vol] 64.4 mg/dL Normal [facility] Comment on above: Performed By: #### C MP, CRP, TSH, LIPID, CK #### [facility] [address] [address] [address] Tracy Hubbard Cholesterol.total/Chol esterol in HDL [Mass ratio] 3.2 {ratio} Normal [facility] Comment on above: Performed By: #### C MP, CRP, TSH, LIPID, CK #### [facility] [address] [address] [address] Tracy Hubbard HDL NORMAL > or = 60 mg/dl - LO W CARDIOVASCULAR RISK <40 mg/dl - HIGH CARDIOVASCULAR RISK Normal [facility] Comment on above: Performed By: #### C MP, CRP, TSH, LIPID, CK #### [facility] [address] [address] [address] Tracy Hubbard LDL CALC NORMAL SEE BELOW Normal [facility] Comment on above: Result Comment: <100 mg/dl OPTIMAL 100 - 129 mg/dl NEAR OR ABOVE OPTIMAL 130 - 159 mg/dl BORDERLINE HIGH 160 - 189 mg/dl HIGH >190 mg/dl VERY HIGH Performed By: #### C MP, CRP, TSH, LIPID, CK #### [facility] [address] [address] [address] Tracy Hubbard Triglyceride [Mass/Vol] 178 mg/dL Critically high <=150 [facility] Comment on above: Performed By: #### C MP, CRP, TSH, LIPID, CK #### [facility] [address] [place] [address] Dr. Tracy Hubbard VLDL CALC 35.6 mg/dL Normal [facility] Comment on above: Performed By: #### C MP, CRP, TSH, LIPID, CK #### [facility] [address] [place] [address] Dr. Tracy Hubbard PROF 14(COMP METB)on 023 Albumin [Mass/Vol] 4.1 g/dL Normal 3.4-5.0 [facility] Comment on above: Performed By: #### C MP, CRP, TSH, LIPID, CK #### [facility] [address] [place] [address] Dr. Tracy Hubbard Albumin/Globulin [Mass ratio] 1.2 {ratio} Normal [facility] Comment on above: Performed By: #### C MP, CRP, TSH, LIPID, CK #### [facility] [address] [place] [address] Dr. Tracy Hubbard ALP [Catalytic activity/Vol] 66 U/L Normal 46-116 [facility] Comment on above: Performed By: #### C MP, CRP, TSH, LIPID, CK #### [facility] [address] [place] [address] Dr. Tracy Hubbard ALT [Catalytic activity/Vol] 44 U/L Normal 16-63 [facility] Comment on above: Performed By: #### C MP, CRP, TSH, LIPID, CK #### [facility] [address] [address] [address] Tracy Hubbard Anion gap [Moles/Vol] 12.3 mmol/L Normal [facility] Comment on above: Performed By: #### C MP, CRP, TSH, LIPID, CK #### [facility] [address] [place] [address] Dr. Tracy Hubbard AST [Catalytic activity/Vol] 26 U/L Normal 15-37 [facility] Comment on above: Performed By: #### C MP, CRP, TSH, LIPID, CK #### [facility] [address] [address] [address] Tracy Hubbard Bilirubin [Mass/Vol] 0.8 mg/dL Normal 0.2-1.0 [facility] Comment on above: Performed By: #### C MP, CRP, TSH, LIPID, CK #### [facility] [address] [place] [address] Dr. Tracy Hubbard Calcium [Mass/Vol] 8.9 mg/dL Normal 8.5-10.1 [facility] Comment on above: Performed By: #### C MP, CRP, TSH, LIPID, CK #### [facility] [address] [place] [address] Dr. Tracy Hubbard Chloride [Moles/Vol] 103 mmol/L Normal 98-107 [facility] Comment on above: Performed By: #### C MP, CRP, TSH, LIPID, CK #### [facility] [address] [place] [address] Dr. Tracy Hubbard CO2 [Moles/Vol] 27.0 mmol/L Normal 21.0-32.[address] [facility] Comment on above: Performed By: #### C MP, CRP, TSH, LIPID, CK #### [facility] [address] [place] [address] Dr. Tracy Hubbard Creatinine [Mass/Vol] 1.04 mg/dL Normal 0.70-1.30 [facility] Comment on above: Performed By: #### C MP, CRP, TSH, LIPID, CK #### [facility] [address] [place] [address] Dr. Tracy Hubbard EGFR-AF CAMEROONIAN >60 Normal >=60 [facility] Comment on above: Performed By: #### C MP, CRP, TSH, LIPID, CK #### [facility] [address] [place] [address] Dr. Tracy Hubbard EGFR-NON AF CAMEROONIAN >60 Normal >=60 [facility] Comment on above: Performed By: #### C MP, CRP, TSH, LIPID, CK #### [facility] [address] [place] [address] Dr. Tracy Hubbard Globulin (S) [Mass/Vol] 3.4 g/dL Normal [facility] Comment on above: Performed By: #### C MP, CRP, TSH, LIPID, CK #### [facility] [address] [place] [address] Dr. Tracy Hubbard Glucose [Mass/Vol] 124 mg/dL Critically high 74-106 [facility] Comment on above: Performed By: #### C MP, CRP, TSH, LIPID, CK #### [facility] [address] [place] [address] Dr. Tracy Hubbard Potassium [Moles/Vol] 4.3 mmol/L Normal 3.5-5.1 [facility] Comment on above: Performed By: #### C MP, CRP, TSH, LIPID, CK #### [facility] [address] [place] [address] Dr. Tracy Hubbard Protein [Mass/Vol] 7.5 g/dL Normal 6.4-8.2 [facility] Comment on above: Performed By: #### C MP, CRP, TSH, LIPID, CK #### [facility] [address] [place] [address] Dr. Tracy Hubbard Sodium [Moles/Vol] 138 mmol/L Normal 136-145 [facility] Comment on above: Performed By: #### C MP, CRP, TSH, LIPID, CK #### [facility] [address] [place] [address] Dr. Tracy Hubbard Urea nitrogen [Mass/Vol] 16.0 mg/dL Normal 7.0-18.0 [facility] Comment on above: Performed By: #### C MP, CRP, TSH, LIPID, CK #### [facility] [address] [place] [address] Dr. Tracy Hubbard Urea nitrogen/Creatinine [Mass ratio] 15.4 mg/mg Normal [facility] Comment on above: Performed By: #### C MP, CRP, TSH, LIPID, CK #### [facility] [address] [place] [address] Dr. Tracy Hubbard [facility] 9 mm/hr Normal <=20 [facility] Comment on above: Performed By: #### S EDR #### [facility] [address] [address] [address] Tracy Hubbard TSHon 07-29-2022 TSH 4.856 uIU/mL Critically high 0.358-3.74 0 [facility] Comment on above: Performed By: #### C MP, CRP, TSH, LIPID, CK #### [facility] [address] [address] [address] Tracy Hubbard XR hip RT min 2V(w/wo pelvis )*on 04-12-2022 XR hip RT min 2V(w/wo pelvis)* [facility] [place] Other XR hip RT min 2V(w/wo pelvis)* [facility] Other XR hip RT min 2V(w/wo pelvis)* [address] [place] [address] [facility] Other XR hip RT min 2V(w/wo pelvis)* [place] [address] [facility] Other XR hip RT min 2V(w/wo pelvis)* XRay Report [facility] Other XR hip RT min 2V(w/wo pelvis)* Signed [facility] Other XR hip RT min 2V(w/wo pelvis)* Patient: Esme Steven MR#: [id number] [facility] Other XR hip RT min 2V(w/wo pelvis)* 8942 [facility] Other XR hip RT min 2V(w/wo pelvis)* : 1960 Acct:[id number] [facility] Other XR hip RT min 2V(w/wo pelvis)* Age/Sex: 61 / M ADM Date: 04/12/22 [facility] Other XR hip RT min 2V(w/wo pelvis)* Loc: SOXD Room: Type: REG CLI [facility] Other XR hip RT min 2V(w/wo pelvis)* Attending Dr: Jonathan Samano MD [facility] Other XR hip RT min 2V(w/wo pelvis)* Copies to: Jonathan Samano MD [facility] Other XR hip RT min 2V(w/wo pelvis)* Ordering Provider: Jonathan Samano MD [facility] Other XR hip RT min 2V(w/wo pelvis)* Date of Service: 04/12/22 [facility] Other XR hip RT min 2V(w/wo pelvis)* XR/XR hip RT min 2V(w/wo pelvis)*: Right hip pain [facility] Other XR hip RT min 2V(w/wo pelvis)* RIGHT HIP - 2 views: [facility] Other XR hip RT min 2V(w/wo pelvis)* CLINICAL HISTORY: Low back pain that radiates to right hip for years. No known injury. [facility] Other XR hip RT min 2V(w/wo pelvis)* COMPARISON: None [facility] Other XR hip RT min 2V(w/wo pelvis)* FINDINGS: Moderate degenerative changes of the right hip without acute bony process. Left hip [facility] Other XR hip RT min 2V(w/wo pelvis)* prosthesis is in place. [employer] Other XR hip RT min 2V(w/wo pelvis)* XR/XR hip RT min 2V(w/wo pelvis)* [facility] Other XR hip RT min 2V(w/wo pelvis)* IMPRESSION: [facility] Other XR hip RT min 2V(w/wo pelvis)* MODERATE DEGENERATIVE CHANGES OF THE RIGHT HIP WITHOUT ACUTE BONY PROCESS.. [facility] Other XR hip RT min 2V(w/wo pelvis)* Impression dictated by: Alex Castro Jr., D.OBarbara04/12/2022 12:57 PM [facility] Other XR hip RT min 2V(w/wo pelvis)* Dictation Location: [place] [address] [facility] Other XR hip RT min 2V(w/wo pelvis)* Transcribed By: PWS 04/12/22 [facility] Other XR hip RT min 2V(w/wo pelvis)* Dictated By: Alex Castro Jr, DO 04/12/22 [facility] Other XR hip RT min 2V(w/wo pelvis)* Signed By: [facility] Other XR hip RT min 2V(w/wo pelvis)* 04/12/22 [facility] Other XR hand RT min 3V*on 022 XR hand RT min 3V* [facility] Other XR hand RT min 3V* [facility] Other XR hand RT min 3V* [address] [place] [address] [facility] Other XR hand RT min 3V* [place] [address] [facility] Other XR hand RT min 3V* XRay Report [facility] Other XR hand RT min 3V* Signed [facility] Other XR hand RT min 3V* Patient: Law jose antonio Steven MR#: [id number] [facility] Other XR hand RT min 3V* 7635 [facility] Other XR hand RT min 3V* : 1960 Acct:[id number] [facility] Other XR hand RT min 3V* Age/Sex: 61 / M ADM Date: 02/15/22 [facility] Other XR hand RT min 3V* Loc: SOXD Room: Type : [facility] Other XR hand RT min 3V* Attending Dr: Orlando Nichole MD [facility] Other XR hand RT min 3V* Copies to: Chio Nichole MD [facility] Other XR hand RT min 3V* Ordering Provider: Chio Nichole MD [facility] Other XR hand RT min 3V* Date of Service: 02/15/22 [facility] Other XR hand RT min 3V* XR/XR hand RT min 3V*: Right hand pain [facility] Other XR hand RT min 3V* [address] film [facility] Other XR hand RT min 3V* COMPARISON:05/23/21 [facility] Other XR hand RT min 3V* HISTORY:3rd metacarp al phalangeal joint pain. 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 Mild interphalangeal degenerative changes. No acute bony findings. 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 [facility] Other XR hand RT min 3V* Impression dictated by: Matt Ferrell M.D.02/15/2022 4:53 PM [facility] Other XR hand RT min 3V* Dictation Location: [facility]-- [facility] Other XR hand RT min 3V* Transcribed By: GWEN 02/15/221652 [facility] Other XR hand RT min 3V* Dictated By: Pollo Ferrell DO 02/15/22 165 [facility] Other XR hand RT min 3V* Signed By: [facility] Other XR hand RT min 3V* 02/15/221652 [facility] [employer] Other XR hip LT min 2V(w/wo pelvis )*on 09-28-2021 XR hip LT min 2V(w/wo pelvis)* [facility] Other XR hip LT min 2V(w/wo pelvis)* [facility] Other XR hip LT min 2V(w/wo pelvis)* [address] [place] [address] [facility] Other XR hip LT min 2V(w/wo pelvis)* [place] [address] [facility] Other XR hip LT min 2V(w/wo pelvis)* XRay Report [facility] Other XR hip LT min 2V(w/wo pelvis)* Signed [facility] Other XR hip LT min 2V(w/wo pelvis)* Patient: Esme Steven MR#: [id number] [facility] Other XR hip LT min 2V(w/wo pelvis)* 1017 [facility] Other XR hip LT min 2V(w/wo pelvis)* : 1960 Acct:[id number] [facility] Other XR hip LT min 2V(w/wo pelvis)* Age/Sex: 60 / M ADM Date: 09/28/21 [facility] Other XR hip LT min 2V(w/wo pelvis)* Loc: SOX Room: Type: [facility] Other XR hip LT min 2V(w/wo pelvis)* Attending Dr: Sarai Mendez II, MD [facility] Other XR hip LT min 2V(w/wo pelvis)* Copies to: Sarai Mendez MD [facility] Other XR hip LT min 2V(w/wo pelvis)* Ordering Provider: Sarai Mendez MD [facility] Other XR hip LT min 2V(w/wo pelvis)* Date of Service: 09/28/21 [facility] Other XR hip LT min 2V(w/wo pelvis)* XR/XR hip LT min 2V(w/wo pelvis)*: S/P total left hip arthroplasty [facility] Other XR hip LT min 2V(w/wo pelvis)* 2 views LEFT hip single view pelvisplain film [facility] Other XR hip LT min 2V(w/wo pelvis)* COMPARISON:08/17/21 [facility] Other XR hip LT min 2V(w/wo pelvis)* HISTORY:Status post LEFT total hip arthroplasty [facility] Other XR hip LT min 2V(w/wo pelvis)* No fracture, dislocation or focal soft tissue abnormality seen.No hardware failure or loosening [facility] Other XR hip LT min 2V(w/wo pelvis)* identified. [facility] Other XR hip LT min 2V(w/wo pelvis)* XR/XR hip LT min 2V(w/wo pelvis)* [facility] Other XR hip LT min 2V(w/wo pelvis)* IMPRESSION:Stable LEFT hip arthroplasty. [facility] Other XR hip LT min 2V(w/wo pelvis)* Impression dictated by: Matt Ferrell M.D.09/28/2021 1:11 PM [facility] Other XR hip LT min 2V(w/wo pelvis)* Dictation Location: [facility]--11 [place] Other XR hip LT min 2V(w/wo pelvis)* Transcribed By: PWS 09/28/21 1311 [facility] Other XR hip LT min 2V(w/wo pelvis)* Dictated By: Matt Ferrell DO 09/28/21 1310 [facility] Other XR hip LT min 2V(w/wo pelvis)* Signed By: [facility] Other XR hip LT min 2V(w/wo pelvis)* 09/28/21 1311 [facility] Other Laboratory - Hematology and Cell countson 06-02-2009 Lymphocytes/100 WBC (Bld) 14 % [facility] Neutrophils/100 WBC (Bld) 12 % 0 - 25 % [facility] No Panel Informationon 06-02 Clarity, SF Slightly turbid Abnormal CLEAR [facility] Color, SF Slightly bloody Abnormal YEL [facility] Macro%, SF 26 % [facility] [place]%, SF 24 % [facility] [place] [address] /uL [facility] Reac%, SF 6 % [facility] Site, SF Unknown [facility] Slide Number [id number] [facility] Supernatant Clarity, SF Unable to assay. Quantity not sufficient. Abnormal CLEAR [facility] Supernatant Color, SF Unable to assay. Q uantity not sufficient. Abnormal YEL [facility] Synovial CL% 18 % [facility] Synovial Comment Count may be inaccur ate due to Clumped on chamber Cellular disintegration [facility] Synovial Pathologist Interpretation Test Not Indicated [facility] Total Nucleated Cells, SF 200 /uL [facility] Vital Signs Date Time Vital Sign Value Performing Clinician Facility 12-12-2024 08:00-0400 Diastolic blood pressure 83 mm[Hg] Vitaliy Ball DO Work Phone: [facility] 12-12-2024 08:00-0400 Heart rate 77 /min Vitaliy Ball DO Work Phone: [facility] 12-12-2024 08:00-0400 Respiratory rate 16 /min Vitaliy Ball DO Work Phone: [facility] 12-12-2024 08:00-0400 SaO2% (BldA) [Mass fraction] 98 % Vitaliy Ball DO Work Phone: [facility] 12-12-2024 08:00-0400 Systolic blood pressure 127 mm[Hg] Vitaliy Ball DO Work Phone: [facility] 12-12-2024 06:00-0400 Body weight 98 kg Vitaliy Ball DO Work Phone: [facility] 12-12-2024 04:00-0400 Body temperature 97.9 [degF] Vitaliy Ball DO Work Phone: [facility] 12-11-2024 12:53-0400 Body height 179.07 cm Vitaliy Ball DO Work Phone: [facility] 11-19-2024 12:44-0400 Body height 177.8 cm Antonio Steele MD Work Phone: [facility] 11-19-2024 12:44-0400 Body mass index (BMI) [Ratio] 32.71 kg/m2 Antonio Steele MD Work Phone: [facility] 11-19-2024 12:44-0400 Body weight 103.42 kg Antonio Steele MD Work Phone: [facility] 11-19-2024 12:44-0400 Diastolic blood pressure 80 mm[Hg] Antonio Steele MD Work Phone: [facility] 11-19-2024 12:44-0400 Heart rate 98 /min Antonio Steele MD Work Phone: [facility] 11-19-2024 12:44-0400 Systolic blood pressure 110 mm[Hg] Antonio Steele MD Work Phone: [facility] 10-23-2024 14:28-0400 Diastolic blood pressure 78 mm[Hg] Vitaliy Ball DO Work Phone: [facility] 10-23-2024 14:28-0400 Systolic blood pressure 126 mm[Hg] Vitaliy Ball DO Work Phone: [facility] 10-08-2024 13:58-0400 Body height 177.8 cm Vitaliy Ball DO Work Phone: [facility] 10-08-2024 13:58-0400 Body mass index (BMI) [Ratio] 32 kg/m2 Vitaliy Ball DO Work Phone: [facility] 10-08-2024 13:58-0400 Body weight 101.15 kg Vitaliy Ball DO Work Phone: [facility] 10-08-2024 13:58-0400 Diastolic blood pressure 77 mm[Hg] Vitaliy Ball DO Work Phone: [facility] 10-08-2024 13:58-0400 Heart rate 109 /min Vitaliy Ball DO Work Phone: [facility] 10-08-2024 13:58-0400 Respiratory rate 12 /min Vitaliy Ball DO Work Phone: [facility] 10-08-2024 13:58-0400 SaO2% (BldA) [Mass fraction] 98 % Vitaliy Ball DO Work Phone: [facility] 10-08-2024 13:58-0400 Systolic blood pressure 124 mm[Hg] Vitaliy Ball DO Work Phone: [facility] 10-01-2024 11:14-0400 Diastolic blood pressure 72 mm[Hg] Vitaliy Ball DO Work Phone: [facility] 10-01-2024 11:14-0400 Heart rate 97 /min Vitaliy Ball DO Work Phone: [facility] 10-01-2024 11:14-0400 Respiratory rate 18 /min Vitaliy Ball DO Work Phone: [facility] 10-01-2024 11:14-0400 SaO2% (BldA) [Mass fraction] 95 % Vitaliy Ball DO Work Phone: [facility] 10-01-2024 11:14-0400 Systolic blood pressure 106 mm[Hg] Vitaliy Ball DO Work Phone: [facility] 10-01-2024 11:05-0400 Body height 177.8 cm Vitaliy Ball DO Work Phone: [facility] 10-01-2024 08:25-0400 Body temperature 97.9 [degF] Vitaliy Ball DO Work Phone: [facility] 10-01-2024 05:45-0400 Body weight 93.5 kg Vitaliy Ball DO Work Phone: [facility] 09-29-2024 17:10-0400 Diastolic blood pressure 84 mm[Hg] Vitaliy Ball DO Work Phone: [facility] 09-29-2024 17:10-0400 Heart rate 84 /min Vitaliy Ball DO Work Phone: [facility] 09-29-2024 17:10-0400 SaO2% (BldA) [Mass fraction] 98 % Vitaliy Ball DO Work Phone: [facility] 09-29-2024 17:10-0400 Systolic blood pressure 106 mm[Hg] Vitaliy Ball DO Work Phone: [facility] 09-29-2024 16:15-0400 Body temperature 97.7 [degF] Vitaliy Ball DO Work Phone: [facility] 09-29-2024 15:14-0400 Respiratory rate 17 /min Vitaliy Ball DO Work Phone: [facility] 09-29-2024 03:31-0400 Body height 180.34 cm Vitaliy Ball DO Work Phone: [facility] 09-29-2024 03:31-0400 Body weight 100.2 kg Vitaliy Ball DO Work Phone: [facility] 09-09-2024 12:50-0400 Diastolic blood pressure 63 mm[Hg] Vitaliy Ball DO Work Phone: [facility] 09-09-2024 12:50-0400 Heart rate 80 /min Vitaliy Ball DO Work Phone: [facility] 09-09-2024 12:50-0400 Respiratory rate 25 /min Vitaliy Ball DO Work Phone: [facility] 09-09-2024 12:50-0400 SaO2% (BldA) [Mass fraction] 96 % Vitaliy Ball DO Work Phone: [facility] 09-09-2024 12:50-0400 Systolic blood pressure 98 mm[Hg] Vitaliy Ball DO Work Phone: [facility] 09-09-2024 10:10-0400 Inhaled oxygen flow rate 3 L/min Vitaliy Ball DO Work Phone: [facility] 09-08-2024 12:00-0400 Body height 179.07 cm Vitaliy Ball DO Work Phone: [facility] 09-08-2024 12:00-0400 Body weight 105 kg Vitaliy Ball DO Work Phone: [facility] 08-22-2024 08:59-0400 Body height 179.1 cm Antonio Steele MD Work Phone: [facility] 08-22-2024 08:59-0400 Body mass index (BMI) [Ratio] 32.82 kg/m2 Antonio Steele MD Work Phone: [facility] 08-22-2024 08:59-0400 Body weight 105.23 kg Antonio Steele MD Work Phone: [facility] 08-22-2024 08:59-0400 Diastolic blood pressure 86 mm[Hg] Antonio Steele MD Work Phone: [facility] 08-22-2024 08:59-0400 Heart rate 95 /min Antonio Steele MD Work Phone: [facility] 08-22-2024 08:59-0400 Systolic blood pressure 132 mm[Hg] Antonio Steele MD Work Phone: [facility] 08-19-2024 16:08-0400 Body height 177.8 cm Vitaliy Ball DO Work Phone: [facility] 08-19-2024 16:08-0400 Body mass index (BMI) [Ratio] 32.8 kg/m2 Vitaliy Ball DO Work Phone: [facility] 08-19-2024 16:08-0400 Body weight 104 kg Vitaliy Ball DO Work Phone: [facility] 08-19-2024 16:08-0400 Diastolic blood pressure 60 mm[Hg] Vitaliy Ball DO Work Phone: [facility] 08-19-2024 16:08-0400 Heart rate 98 /min Vitaliy Ball DO Work Phone: [facility] 08-19-2024 16:08-0400 Respiratory rate 12 /min Vitaliy Ball DO Work Phone: [facility] 08-19-2024 16:08-0400 SaO2% (BldA) [Mass fraction] 97 % Vitaliy Ball DO Work Phone: [facility] 08-19-2024 16:08-0400 Systolic blood pressure 92 mm[Hg] Vitaliy Ball DO Work Phone: [facility] 08-13-2024 11:52-0400 Diastolic blood pressure 71 mm[Hg] Vitaliy Ball DO Work Phone: [facility] 08-13-2024 11:52-0400 Heart rate 85 /min Vitaliy Ball DO Work Phone: [facility] 08-13-2024 11:52-0400 Respiratory rate 18 /min Vitaliy Ball DO Work Phone: [facility] 08-13-2024 11:52-0400 SaO2% (BldA) [Mass fraction] 95 % Vitaliy Ball DO Work Phone: [facility] 08-13-2024 11:52-0400 Systolic blood pressure 107 mm[Hg] Vitaliy Ball DO Work Phone: [facility] 08-13-2024 07:33-0400 Body temperature 97.5 [degF] Vitaliy Ball DO Work Phone: [facility] 08-13-2024 05:12-0400 Body weight 105.5 kg Vitaliy Ball DO Work Phone: [facility] 08-12-2024 15:39-0400 Body height 177.8 cm Vitaliy Ball DO Work Phone: [facility] 08-11-2024 11:49-0400 Diastolic blood pressure 75 mm[Hg] Vitaliy Ball DO Work Phone: [facility] 08-11-2024 11:49-0400 Heart rate 106 /min Vitaliy Ball DO Work Phone: [facility] 08-11-2024 11:49-0400 Systolic blood pressure 118 mm[Hg] Vitaliy Ball DO Work Phone: [facility] 08-11-2024 11:44-0400 Respiratory rate 16 /min Vitaliy Ball DO Work Phone: [facility] 08-11-2024 11:44-0400 SaO2% (BldA) [Mass fraction] 91 % Vitaliy Ball DO Work Phone: [facility] 08-11-2024 10:03-0400 Body height 177.8 cm Vitaliy Ball DO Work Phone: [facility] 08-11-2024 10:03-0400 Body temperature 99.1 [degF] Vitaliy Ball DO Work Phone: [facility] 08-11-2024 10:03-0400 Body weight 107.9 kg Vitaliy Ball DO Work Phone: [facility] 08-06-2024 12:00-0400 Body height 177.8 cm Vitaliy Ball DO Work Phone: [facility] 08-06-2024 12:00-0400 Body mass index (BMI) [Ratio] 33.5 kg/m2 Vitaliy Ball DO Work Phone: [facility] 08-06-2024 12:00-0400 Body weight 106.14 kg Vitaliy Ball DO Work Phone: [facility] 08-01-2024 11:09-0400 Body height 177.8 cm Vitaliy Ball DO Work Phone: [facility] 08-01-2024 11:09-0400 Body temperature 98 [degF] Vitaliy Ball DO Work Phone: [facility] 08-01-2024 11:09-0400 Body weight 106.7 kg Vitaliy Ball DO Work Phone: [facility] 08-01-2024 11:09-0400 Diastolic blood pressure 92 mm[Hg] Vitaliy Ball DO Work Phone: [facility] 08-01-2024 11:09-0400 Heart rate 61 /min Vitaliy Ball DO Work Phone: [facility] 08-01-2024 11:09-0400 Respiratory rate 18 /min Vitaliy Ball DO Work Phone: [facility] 08-01-2024 11:09-0400 SaO2% (BldA) [Mass fraction] 95 % Vitaliy Ball DO Work Phone: [facility] 08-01-2024 11:09-0400 Systolic blood pressure 134 mm[Hg] Vitaliy Ball DO Work Phone: [facility] 07-30-2024 10:00-0400 Body height 180.34 cm Vitaliy Ball DO Work Phone: [facility] 07-30-2024 10:00-0400 Body mass index (BMI) [Ratio] 32.8 kg/m2 Vitaliy Ball DO Work Phone: [facility] 07-30-2024 10:00-0400 Body weight 106.59 kg Vitaliy Ball DO Work Phone: [facility] 07-30-2024 10:00-0400 Diastolic blood pressure 82 mm[Hg] Vitaliy Ball DO Work Phone: [facility] 07-30-2024 10:00-0400 Heart rate 75 /min Vitaliy Ball DO Work Phone: [facility] 07-30-2024 10:00-0400 Respiratory rate 12 /min Vitaliy Ball DO Work Phone: [facility] 07-30-2024 10:00-0400 Systolic blood pressure 116 mm[Hg] Vitaliy Ball DO Work Phone: [facility] 07-01-2024 13:36-0400 Body height 180.34 cm Vitaliy Ball DO Work Phone: [facility] 07-01-2024 13:36-0400 Body mass index (BMI) [Ratio] 33.6 kg/m2 Vitaliy Ball DO Work Phone: [facility] 07-01-2024 13:36-0400 Body weight 109.31 kg Vitaliy Ball DO Work Phone: [facility] 07-01-2024 13:36-0400 Diastolic blood pressure 79 mm[Hg] Vitaliy Ball DO Work Phone: [facility] 07-01-2024 13:36-0400 Heart rate 116 /min Vitaliy Ball DO Work Phone: [facility] 07-01-2024 13:36-0400 Respiratory rate 12 /min Vitaliy Ball DO Work Phone: [facility] 07-01-2024 13:36-0400 Systolic blood pressure 114 mm[Hg] Vitaliy Brower DO Work Phone: [facility] 06-30-2024 09:38-0400 Body mass index (BMI) [Ratio] 33.37 kg/m2 Heladio Pineda MD Work Phone: [facility] 06-30-2024 09:38-0400 Body weight 107 kg Heladio Pineda MD Work Phone: [facility] 06-30-2024 09:38-0400 Diastolic blood pressure 85 mm[Hg] Heladio Pineda MD Work Phone: [facility] 06-30-2024 09:38-0400 Heart rate 81 /min Heladio Pineda MD Work Phone: [facility] 06-30-2024 09:38-0400 Systolic blood pressure 136 mm[Hg] Heladio Pineda MD Work Phone: [facility] 05-02-2024 14:11-0500 Body height 180.34 cm [facility] 05-02-2024 14:11-0500 Body mass index (BMI) [Ratio] 33.2 kg/m2 [facility] 05-02-2024 14:11-0500 Body weight 108.06 kg [facility] 05-02-2024 14:11-0500 Diastolic blood pressure 82 mm[Hg] [facility] 05-02-2024 14:11-0500 Heart rate 111 /min [facility] 05-02-2024 14:11-0500 Respiratory rate 12 /min [facility] 05-02-2024 14:11-0500 Systolic blood pressure 115 mm[Hg] [facility] 03-17-2024 15:30-0500 Body height 180.34 cm [facility] 03-17-2024 15:30-0500 Body mass index (BMI) [Ratio] 32.9 kg/m2 [facility] 03-17-2024 15:30-0500 Body temperature 97.3 [degF] [facility] 03-17-2024 15:30-0500 Body weight 107.16 kg [facility] 03-17-2024 15:30-0500 Diastolic blood pressure 79 mm[Hg] [facility] 03-17-2024 15:30-0500 Heart rate 111 /min [facility] 03-17-2024 15:30-0500 Respiratory rate 12 /min [facility] 03-17-2024 15:30-0500 Systolic blood pressure 118 mm[Hg] [facility] 02-14-2024 13:51-0500 Body height 177.8 cm Antonio Steele MD Work Phone: [facility] 02-14-2024 13:51-0500 Body mass index (BMI) [Ratio] 35.01 kg/m2 Antonio Steele MD Work Phone: [facility] 02-14-2024 13:51-0500 Body weight 110.68 kg Antonio Steele MD Work Phone: [facility] 02-14-2024 13:51-0500 Diastolic blood pressure 80 mm[Hg] Antonio Steele MD Work Phone: [facility] 02-14-2024 13:51-0500 Systolic blood pressure 130 mm[Hg] Antonio Steele MD Work Phone: [facility] 01-29-2024 13:21-0400 Diastolic blood pressure 84 mm[Hg] Bird Kowalski MD Work Phone: [facility] 01-29-2024 13:21-0400 Heart rate 67 /min Bird Kowalski MD Work Phone: [facility] 01-29-2024 13:21-0400 Respiratory rate 15 /min Bird Kowalski MD Work Phone: [facility] 01-29-2024 13:21-0400 SaO2% (BldA) [Mass fraction] 95 % Bird Kowalski MD Work Phone: [facility] 01-29-2024 13:21-0400 Systolic blood pressure 138 mm[Hg] Bird Kowalski MD Work Phone: [facility] 01-29-2024 09:49-0400 Body height 179.1 cm Bird Kowalski MD Work Phone: [facility] 01-29-2024 09:49-0400 Body mass index (BMI) [Ratio] 34.6 kg/m2 Bird Kowalski MD Work Phone: [facility] 01-29-2024 09:49-0400 Body weight 111 kg Bird Kowalski MD Work Phone: [facility] 12-31-2023 13:42-0400 Diastolic blood pressure 84 mm[Hg] DO Vitaliy Ball Work Phone: [facility] 12-31-2023 13:42-0400 Heart rate 70 /min DO Vitaliy Ball Work Phone: [facility] 12-31-2023 13:42-0400 Respiratory rate 16 /min DO Vitaliy Ball Work Phone: [facility] 12-31-2023 13:42-0400 SaO2% (BldA) [Mass fraction] 98 % DO Vitaliy Ball Work Phone: [facility] 12-31-2023 13:42-0400 Systolic blood pressure 135 mm[Hg] DO Vitaliy Ball Work Phone: [facility] 12-31-2023 10:41-0400 Body height 179.07 cm DO Vitaliy Ball Work Phone: [facility] 12-31-2023 10:41-0400 Body weight 105.23 kg DO Vitaliy Ball Work Phone: [facility] 12-19-2023 10:00-0400 Body height 179.1 cm Bird Kowalski MD Work Phone: [facility] 12-19-2023 10:00-0400 Body mass index (BMI) [Ratio] 34.52 kg/m2 Bird Kowalski MD Work Phone: [facility] 12-19-2023 10:00-0400 Body temperature 97.5 [degF] Bird Kowalski MD Work Phone: [facility] 12-19-2023 10:00-0400 Body weight 110.68 kg Bird Kowalski MD Work Phone: [facility] 12-19-2023 10:00-0400 Diastolic blood pressure 77 mm[Hg] Bird Kowalski MD Work Phone: [facility] 12-19-2023 10:00-0400 Heart rate 73 /min Bird Kowalski MD Work Phone: [facility] 12-19-2023 10:00-0400 Respiratory rate 16 /min Bird Kowalski MD Work Phone: [facility] 12-19-2023 10:00-0400 SaO2% (BldA) [Mass fraction] 95 % Bird Kowalski MD Work Phone: [facility] 12-19-2023 10:00-0400 Systolic blood pressure 121 mm[Hg] Bird Kowalski MD Work Phone: [facility] 11-19-2023 14:26-0400 Body height 167.64 cm DO Vitaliy Ball Work Phone: [facility] 11-19-2023 14:26-0400 Body mass index (BMI) [Ratio] 37.8 kg/m2 DO Vitaliy Ball Work Phone: [facility] 11-19-2023 14:26-0400 Body weight 106.31 kg DO Vitaliy Ball Work Phone: [facility] 11-19-2023 14:26-0400 Diastolic blood pressure 85 mm[Hg] DO Vitaliy Ball Work Phone: [facility] 11-19-2023 14:26-0400 Heart rate 80 /min DO Vitaliy Ball Work Phone: [facility] 11-19-2023 14:26-0400 Respiratory rate 12 /min DO Vitaliy Ball Work Phone: [facility] 11-19-2023 14:26-0400 Systolic blood pressure 134 mm[Hg] DO Vitaliy Ball Work Phone: [facility] 10-18-2023 14:32-0400 Body mass index (BMI) [Ratio] 33.95 kg/m2 Antonio Steele MD Work Phone: [facility] 10-18-2023 14:32-0400 Body weight 108.86 kg Antonio Steeel MD Work Phone: [facility] 10-18-2023 14:32-0400 Diastolic blood pressure 84 mm[Hg] Antonio Steele MD Work Phone: [facility] 10-18-2023 14:32-0400 Heart rate 82 /min Antonio Steele MD Work Phone: [facility] 10-18-2023 14:32-0400 Systolic blood pressure 132 mm[Hg] Antonio Steele MD Work Phone: [facility] 09-07-2023 13:17-0400 Body height 167.64 cm DO Vitaliy Ball Work Phone: [facility] 09-07-2023 13:17-0400 Body mass index (BMI) [Ratio] 38.5 kg/m2 DO Vitaliy Ball Work Phone: [facility] 09-07-2023 13:17-0400 Body weight 108.12 kg DO Vitaliy Ball Work Phone: [facility] 09-07-2023 13:17-0400 Diastolic blood pressure 91 mm[Hg] DO Vitaliy Ball Work Phone: [facility] 09-07-2023 13:17-0400 Heart rate 78 /min DO Vitaliy Ball Work Phone: [facility] 09-07-2023 13:17-0400 Respiratory rate 12 /min DO Vitaliy Ball Work Phone: [facility] 09-07-2023 13:17-0400 Systolic blood pressure 136 mm[Hg] DO Vitaliy Ball Work Phone: [facility] 09-01-2023 11:29-0400 Body temperature 97.8 [degF] DO Vitaliy Ball Work Phone: [facility] 09-01-2023 11:29-0400 Diastolic blood pressure 80 mm[Hg] DO Vitaliy Ball Work Phone: [facility] 09-01-2023 11:29-0400 Heart rate 88 /min DO Vitaliy Ball Work Phone: [facility] 09-01-2023 11:29-0400 Respiratory rate 16 /min DO Vitaliy Ball Work Phone: [facility] 09-01-2023 11:29-0400 SaO2% (BldA) [Mass fraction] 98 % DO Vitaliy Ball Work Phone: [facility] 09-01-2023 11:29-0400 Systolic blood pressure 140 mm[Hg] DO Vitaliy Ball Work Phone: [facility] 09-01-2023 05:17-0400 Body weight 113 kg DO Vitaliy Ball Work Phone: [facility] 08-31-2023 13:01-0400 Body height 177.8 cm DO Vitaliy Ball Work Phone: [facility] 08-30-2023 22:00-0400 Diastolic blood pressure 67 mm[Hg] DO Vitaliy Ball Work Phone: [facility] 08-30-2023 22:00-0400 Heart rate 86 /min DO Vitaliy Ball Work Phone: [facility] 08-30-2023 22:00-0400 Respiratory rate 21 /min DO Vitaliy Ball Work Phone: [facility] 08-30-2023 22:00-0400 SaO2% (BldA) [Mass fraction] 93 % DO Vitaliy Ball Work Phone: [facility] 08-30-2023 22:00-0400 Systolic blood pressure 107 mm[Hg] DO Vitaliy Ball Work Phone: [facility] 08-30-2023 20:00-0400 Body temperature 99.8 [degF] DO Vitaliy Ball Work Phone: [facility] 08-30-2023 16:29-0400 Body height 177.8 cm DO Vitaliy Ball Work Phone: [facility] 08-30-2023 16:29-0400 Body weight 105.23 kg DO Vitaliy Ball Work Phone: [facility] 08-16-2023 11:36-0400 Body height 179.1 cm [facility] 08-16-2023 11:36-0400 Body mass index (BMI) [Ratio] 34.52 kg/m2 [facility] 08-16-2023 11:36-0400 Body weight 110.68 kg [facility] 08-16-2023 11:36-0400 Diastolic blood pressure 74 mm[Hg] [facility] 08-16-2023 11:36-0400 Heart rate 75 /min [facility] 08-16-2023 11:36-0400 Systolic blood pressure 124 mm[Hg] [facility] 08-02-2023 09:29-0400 Inhaled oxygen flow rate 3 L/min DO Vitaliy Ball Work Phone: [facility] 08-02-2023 09:29-0400 SaO2% (BldA) [Mass fraction] 95 % DO Vitaliy Ball Work Phone: [facility] 08-01-2023 13:58-0400 Body height 177.8 cm DO Vitalyi Ball Work Phone: [facility] 08-01-2023 13:58-0400 Body weight 111 kg DO Vitaliy Ball Work Phone: [facility] 07-27-2023 11:14-0400 Diastolic blood pressure 80 mm[Hg] Antonio Steele MD Work Phone: [facility] 07-27-2023 11:14-0400 Systolic blood pressure 110 mm[Hg] Antonio Steele MD Work Phone: [facility] 07-27-2023 11:13-0400 Body height 177.8 cm Antonio Steele MD Work Phone: [facility] 07-27-2023 11:13-0400 Body mass index (BMI) [Ratio] 35.15 kg/m2 Antonio Steele MD Work Phone: [facility] 07-27-2023 11:13-0400 Body weight 111.13 kg Antonio Steele MD Work Phone: [facility] 07-27-2023 11:13-0400 Heart rate 91 /min Antonio Steele MD Work Phone: [facility] 06-29-2023 10:00-0400 Body height 177.8 cm DO Vitaliy Ball Work Phone: [facility] 06-29-2023 10:00-0400 Body mass index (BMI) [Ratio] 35.7 kg/m2 DO Vitaliy Ball Work Phone: [facility] 06-29-2023 10:00-0400 Body weight 113.11 kg DO Vitaliy Ball Work Phone: [facility] 06-29-2023 10:00-0400 Diastolic blood pressure 84 mm[Hg] DO Vitaliy Ball Work Phone: [facility] 06-29-2023 10:00-0400 Heart rate 86 /min DO Vitaliy Ball Work Phone: [facility] 06-29-2023 10:00-0400 Respiratory rate 12 /min DO Vitaliy Ball Work Phone: [facility] 06-29-2023 10:00-0400 Systolic blood pressure 119 mm[Hg] DO Vitaliy Ball Work Phone: [facility] 06-04-2023 14:08-0500 Body height 177.8 cm Sarai Velasco MD Work Phone: [employer] [facility] 06-04-2023 14:08-0500 Body mass index (BMI) [Ratio] 34.15 kg/m2 Sarai Velasco MD Work Phone: [facility] 06-04-2023 14:08-0500 Body weight 107.96 kg Sarai Velasco MD Work Phone: [facility] 06-04-2023 14:08-0500 Diastolic blood pressure 80 mm[Hg] Sarai Velasco MD Work Phone: [facility] 06-04-2023 14:08-0500 Heart rate 94 /min Sarai Velasco MD Work Phone: [facility] 06-04-2023 14:08-0500 SaO2% (BldA) [Mass fraction] 94 % Sarai Velasco MD Work Phone: [facility] 06-04-2023 14:08-0500 Systolic blood pressure 114 mm[Hg] Sarai Velasco MD Work Phone: [facility] 05-07-2023 11:00-0500 Body height 177.8 cm Sukhjinder Montesinos Other [facility] 05-07-2023 11:00-0500 Body mass index (BMI) [Ratio] 34.72 kg/m2 Sukhjinder Montesinos Other [employer] Other 05-07-2023 11:00-0500 Body weight 109.76 kg DO Vitaliy Ball Work Phone: [facility] 05-07-2023 11:00-0500 Body weight 109.77 kg Sukhjinder Montesinos Other [facility] [employer] Other 05-02-2023 10:45-0500 Body height 177.8 cm Vitaliy Ball Other [facility] 05-02-2023 10:45-0500 Body mass index (BMI) [Ratio] 34.72 kg/m2 Vitaliy Ball Other [facility] [employer] Other 05-02-2023 10:45-0500 Body weight 109.77 kg Vitaliy Ball Other [facility] [employer] Other 05-02-2023 10:45-0500 Body weight 109.76 kg DO Vitaliy Ball Work Phone: [facility] 05-02-2023 10:45-0500 Diastolic blood pressure 85 mm[Hg] Vitaliy Ball Other [facility] 05-02-2023 10:45-0500 Respiratory rate 12 /min Vitaliy Ball Other [facility] [employer] Other 05-02-2023 10:45-0500 Systolic blood pressure 122 mm[Hg] Vitaliy Ball Other [facility] 04-05-2023 10:15-0500 Body height 177.8 cm Vitaliy Ball Other [facility] 04-05-2023 10:15-0500 Body mass index (BMI) [Ratio] 34.29 kg/m2 Vitaliy Ball Other [facility] [employer] Other 04-05-2023 10:15-0500 Body weight 108.41 kg Vitaliy Ball Other [facility] [employer] Other 04-05-2023 10:15-0500 Body weight 108.4 kg DO Vitaliy Ball Work Phone: [facility] 04-05-2023 10:15-0500 Diastolic blood pressure 58 mm[Hg] Vitaliy Ball Other [facility] 04-05-2023 10:15-0500 Respiratory rate 12 /min Vitaliy Ball Other [facility] [employer] Other 04-05-2023 10:15-0500 Systolic blood pressure 88 mm[Hg] Vitaliy Ball Other [facility] 03-15-2023 11:15-0500 Body height 177.8 cm Sukhjinder Montesinos Other [facility] 03-15-2023 11:15-0500 Body mass index (BMI) [Ratio] 34.29 kg/m2 Sukhjinder Montesinos Other [facility] [employer] Other 03-15-2023 11:15-0500 Body weight 108.41 kg Sukhjinder Montesinos Other [facility] [employer] Other 03-15-2023 11:15-0500 Body weight 108.4 kg DO Vitaliy Ball Work Phone: [facility] 03-05-2023 13:28-0500 Body weight 106.59 kg Heladio Pineda MD Work Phone: [facility] 03-05-2023 13:28-0500 Diastolic blood pressure 81 mm[Hg] Heladio Pineda MD Work Phone: [facility] 03-05-2023 13:28-0500 Heart rate 110 /min Heladio Pineda MD Work Phone: [facility] 03-05-2023 13:28-0500 Systolic blood pressure 124 mm[Hg] Heladio Pineda MD Work Phone: [facility] 02-13-2023 15:00-0500 Diastolic blood pressure 68 mm[Hg] DO Vitaliy Ball Work Phone: [facility] 02-13-2023 15:00-0500 Heart rate 75 /min DO Vitaliy Ball Work Phone: [facility] 02-13-2023 15:00-0500 Respiratory rate 16 /min DO Vitaliy Ball Work Phone: [facility] 02-13-2023 15:00-0500 SaO2% (BldA) [Mass fraction] 94 % DO Vitaliy Ball Work Phone: [facility] 02-13-2023 15:00-0500 Systolic blood pressure 111 mm[Hg] DO Vitaliy Ball Work Phone: [facility] 02-13-2023 11:45-0500 Inhaled oxygen flow rate 1 L/min DO Vitaliy Ball Work Phone: [facility] 02-13-2023 10:48-0500 Body temperature 99.2 [degF] DO Vitaliy Ball Work Phone: [facility] 02-13-2023 06:59-0500 Body height 179.07 cm DO Vitaliy Ball Work Phone: [facility] 02-13-2023 06:59-0500 Body mass index (BMI) [Ratio] 34 kg/m2 DO Vitaliy Ball Work Phone: [facility] 02-13-2023 06:59-0500 Body weight 109 kg DO Vitaliy Ball Work Phone: [facility] 01-24-2023 15:15-0400 Body height 177.8 cm Vitaliy Ball Other [facility] [employer] Other 01-24-2023 15:15-0400 Body mass index (BMI) [Ratio] 34.32 kg/m2 Vitaliy Ball Other [place] Other 01-24-2023 15:15-0400 Body weight 108.5 kg Vitaliy Ball Other [place] Other 01-24-2023 15:15-0400 Diastolic blood pressure 69 mm[Hg] Vitaliy Ball Other [place] Other 01-24-2023 15:15-0400 Respiratory rate 12 /min Vitaliy Ball Other [place] Other 01-24-2023 15:15-0400 Systolic blood pressure 107 mm[Hg] Vitaliy Ball Other [place] Other 01-05-2023 10:55-0400 Body height 179.1 cm Heladio Pineda MD Work Phone: [facility] 01-05-2023 10:55-0400 Body weight 107.5 kg Heladio Pineda MD Work Phone: [facility] 01-05-2023 10:55-0400 Diastolic blood pressure 74 mm[Hg] Heladio Pineda MD Work Phone: [facility] 01-05-2023 10:55-0400 Heart rate 71 /min Heladio Pineda MD Work Phone: [facility] 01-05-2023 10:55-0400 Systolic blood pressure 143 mm[Hg] Heladio Pineda MD Work Phone: [facility] 01-02-2023 10:30-0400 Body height 177.8 cm Vitaliy Ball Other [place] Other 01-02-2023 10:30-0400 Body mass index (BMI) [Ratio] 34.4 kg/m2 Vitaliy Ball Other [place] Other 01-02-2023 10:30-0400 Body weight 108.77 kg Vitaliy Ball Other [place] Other 01-02-2023 10:30-0400 Diastolic blood pressure 78 mm[Hg] Vitaliy Ball Other [place] Other 01-02-2023 10:30-0400 Respiratory rate 12 /min Vitaliy Ball Other [place] Other 01-02-2023 10:30-0400 Systolic blood pressure 120 mm[Hg] Vitaliy Ball Other [place] Other 11-13-2022 15:15-0400 Body height 177.8 cm Vitaliy Ball Other [place] Other 11-13-2022 15:15-0400 Body mass index (BMI) [Ratio] 33.86 kg/m2 Vitaliy Ball Other [place] Other 11-13-2022 15:15-0400 Body weight 107.05 kg Vitaliy Ball Other [place] Other 11-13-2022 15:15-0400 Diastolic blood pressure 75 mm[Hg] Vitaliy Ball Other [place] Other 11-13-2022 15:15-0400 Respiratory rate 12 /min Vitaliy Ball Other [place] Other 11-13-2022 15:15-0400 Systolic blood pressure 112 mm[Hg] Vitaily Ball Other [place] Other 10-25-2022 14:45-0400 Body height 177.8 cm Vitaliy Ball Other [place] Other 10-25-2022 14:45-0400 Body mass index (BMI) [Ratio] 35.24 kg/m2 Vitaliy Ball Other [place] Other 10-25-2022 14:45-0400 Body weight 111.4 kg Vitaliy Ball Other [place] Other 10-25-2022 14:45-0400 Diastolic blood pressure 76 mm[Hg] Vitaliy Ball Other [place] Other 10-25-2022 14:45-0400 Respiratory rate 12 /min Vitaliy Ball Other [place] Other 10-25-2022 14:45-0400 Systolic blood pressure 112 mm[Hg] Vitaliy Ball Other [place] Other 10-11-2022 15:50-0400 Diastolic blood pressure 67 mm[Hg] DO Vitaliy Ball Work Phone: [facility] 10-11-2022 15:50-0400 Heart rate 75 /min DO Vitaliy Ball Work Phone: [facility] 10-11-2022 15:50-0400 Respiratory rate 20 /min DO Vitaliy Ball Work Phone: [facility] 10-11-2022 15:50-0400 SaO2% (BldA) [Mass fraction] 95 % DO Vitaliy Ball Work Phone: [facility] 10-11-2022 15:50-0400 Systolic blood pressure 110 mm[Hg] DO Vitaliy Ball Work Phone: [facility] 10-03-2022 08:30-0400 Body height 177.8 cm Vitaliy Ball Other [facility] [employer] Other 10-03-2022 08:30-0400 Body mass index (BMI) [Ratio] 36.01 kg/m2 Vitaliy Ball Other [place] Other 10-03-2022 08:30-0400 Body weight 113.85 kg Vitaliy Ball Other [facility] [employer] Other 10-03-2022 08:30-0400 Diastolic blood pressure 86 mm[Hg] Vitaliy Ball Other [place] Other 10-03-2022 08:30-0400 Respiratory rate 12 /min Vitaliy Ball Other [place] Other 10-03-2022 08:30-0400 Systolic blood pressure 133 mm[Hg] Vitaliy Ball Other [place] Other 08-09-2022 10:00-0400 Body height 177.8 cm Vitaliy Ball Other [place] Other 08-09-2022 10:00-0400 Body mass index (BMI) [Ratio] 36.21 kg/m2 Vitaliy Ball Other [place] Other 08-09-2022 10:00-0400 Body weight 114.49 kg Vitaliy Ball Other [place] Other 08-09-2022 10:00-0400 Diastolic blood pressure 68 mm[Hg] Vitaliy Ball Other [place] Other 08-09-2022 10:00-0400 SaO2% (BldA) [Mass fraction] 94 % Vitaliy Ball Other [place] Other 08-09-2022 10:00-0400 Systolic blood pressure 121 mm[Hg] Vitaliy Ball Other [place] Other 07-28-2022 10:30-0400 Body height 177.8 cm Vitaliy Ball Other [place] Other 07-28-2022 10:30-0400 Body mass index (BMI) [Ratio] 36.67 kg/m2 Vitaliy Ball Other [place] Other 07-28-2022 10:30-0400 Body weight 115.94 kg Vitaliy Ball Other [place] Other 07-28-2022 10:30-0400 Diastolic blood pressure 76 mm[Hg] Vitaliy Ball Other [place] Other 07-28-2022 10:30-0400 Respiratory rate 16 /min Vitaliy Ball Other [place] Other 07-28-2022 10:30-0400 Systolic blood pressure 122 mm[Hg] Vitaliy Ball Other [place] Other 05-23-2022 15:15-0500 Body height 177.8 cm Vitaliy Ball Other [place] Other 05-23-2022 15:15-0500 Body mass index (BMI) [Ratio] 37.47 kg/m2 Vitaliy Ball Other [place] Other 05-23-2022 15:15-0500 Body weight 118.48 kg Vitaliy Ball Other [place] Other 05-23-2022 15:15-0500 Diastolic blood pressure 72 mm[Hg] Vitaliy Ball Other [place] Other 05-23-2022 15:15-0500 Respiratory rate 12 /min Vitaliy Ball Other [place] Other 05-23-2022 15:15-0500 Systolic blood pressure 122 mm[Hg] Vitaliy Ball Other [place] Other 05-22-2022 14:01-0500 Body height 177.8 cm DO Vitaliy Ball Work Phone: [facility] 05-22-2022 14:01-0500 Body temperature 99 [degF] DO Vitaliy Ball Work Phone: [facility] 05-22-2022 14:01-0500 Body weight 116.95 kg DO Vitaliy Ball Work Phone: [facility] 05-22-2022 14:01-0500 Diastolic blood pressure 96 mm[Hg] DO Vitaliy Ball Work Phone: [facility] 05-22-2022 14:01-0500 Heart rate 77 /min DO Vitaliy Ball Work Phone: [facility] 05-22-2022 14:01-0500 Respiratory rate 18 /min DO Vitaliy Ball Work Phone: [facility] 05-22-2022 14:01-0500 SaO2% (BldA) [Mass fraction] 95 % DO Vitaliy Ball Work Phone: [facility] 05-22-2022 14:01-0500 Systolic blood pressure 163 mm[Hg] DO Vitaliy Ball Work Phone: [facility] 02-15-2022 15:00-0500 Body height 177.8 cm Chio Nichole Other [place] Other 02-15-2022 15:00-0500 Body mass index (BMI) [Ratio] 34.15 kg/m2 Chio Nichole Other [place] Other 02-15-2022 15:00-0500 Body weight 107.96 kg Chio Nichole Other [place] Other 02-13-2022 11:00-0500 Body height 177.8 cm Jonathan Samano Other [place] Other 09-28-2021 12:15-0400 Body height 177.8 cm Sarai Mendez II Other [place] Other 06-17-2021 09:15-0500 Body height 177.8 cm Sarai Andrea II Other [place] Other 06-17-2021 09:15-0500 Body mass index (BMI) [Ratio] 34.15 kg/m2 Sarai [place] II Other [place] Other 06-17-2021 09:15-0500 Body weight 107.96 kg Sarai [place] II Other [place] Other 02-22-2021 15:45-0500 Body height 177.8 cm Ojnathan Felter Other [place] Other 02-22-2021 15:45-0500 Body mass index (BMI) [Ratio] 34.43 kg/m2 Jonathan Felter Other [place] Other 02-22-2021 15:45-0500 Body weight 108.86 kg Jonathan Felter Other [place] Other 01-05-2021 10:45-0400 Body height 177.8 cm Jonathan Felter Other [place] Other 01-05-2021 10:45-0400 Body mass index (BMI) [Ratio] 34.43 kg/m2 Jonathan Felter Other [place] Other 01-05-2021 10:45-0400 Body weight 108.86 kg Jonathan Felter Other [place] Other Encounters Encounter Date Encounter Type Care Provider Facility Start: 12-15-2024 End: 12-15-2024 ambulatory [facility] Start: 12-15-2024 End: 12-15-2024 ambulatory Vitaliy Ball DO Work Phone: [facility] Work Phone: Start: 12-15-2024 End: 12-15-2024 Patient encounter procedure Jonathan Krause MD -[facility] Work Phone: Start: 12-09-2024 End: 12-12-2024 Evaluation and management of inpatient Antonio Steele MD -[facility] Work Phone: Start: 11-19-2024 End: 11-19-2024 Office outpatient visit 40 minutes Antonio Steele MD Work Phone: [facility] Comment on above: Persistent atrial fi brillation (Multi) (Primary Dx); Multi-vessel coronary artery stenosis; Status post aorto-coronary artery bypass graft; Presence of Watchman left atrial appendage closure device; Mixed hyperlipidemia; Dilated aortic root; Cardiomyopathy, ischemic; Never smoked cigarettes; BMI 32.0-32.9,adult Start: 11-19-2024 End: 11-19-2024 ambulatory [facility] Start: 10-23-2024 End: 10-23-2024 ambulatory Vitaliy Ball DO Work Phone: [facility] Work Phone: Start: 10-23-2024 End: 10-23-2024 Patient encounter procedure Sarai Antunez MD -[facility] Work Phone: Start: 10-23-2024 End: 10-23-2024 [facility] Start: 10-23-2024 End: 10-23-2024 ambulatory Vitaliy Ball DO Work Phone: [facility] Work Phone: Start: 10-08-2024 End: 10-08-2024 ambulatory Vitaliy Ball DO Work Phone: [facility] Work Phone: Start: 10-08-2024 End: 10-08-2024 Patient encounter procedure Vitaliy Ball DO -[facility] Work Phone: Start: 09-30-2024 End: 10-01-2024 ambulatory Antonio Steele Facility:[facility] Start: 09-30-2024 End: 10-01-2024 Evaluation and management of inpatient Leidy Nuno DO -[facility] Work Phone: Start: 09-30-2024 End: 10-01-2024 observation encounter Vitaliy Brower DO Work Phone: [facility] Work Phone: Start: 09-29-2024 End: 09-29-2024 Evaluation and management of inpatient Tomy Cabello MD -[facility] Work Phone: Start: 09-29-2024 End: 09-29-2024 ambulatory Tomy Cabello Facility:[facility] Start: 09-28-2024 Non-patient / Non-visit Fang tan MD -[facility] Work Phone: Start: 09-26-2024 End: 09-26-2024 ambulatory Heladio Pineda MD Work Phone: Rheumatology Comment on above: Pseudogout involving multiple joints (Primary Dx); Idiopathic chronic gout of multiple sites without tophus; Secondary osteoarthritis of multiple sites; PMR (polymyalgia rheumatica) (HCC); CHENCHO positive; Bilateral hand pain; Long-term use of high-risk medication; Chronic hip pain, bilateral; Rotator cuff arthropathy of left shoulder; 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; Bilateral hand [...] Start: 09-13-2024 End: 09-15-2024 ambulatory HELADIO PINEDA Facility:[facility] Start: 09-09-2024 End: 09-09-2024 Admission to same day surgery center Vitaliy Brower DO Work Phone: [facility]Procedure Outpatient Work Phone: Start: 09-09-2024 End: 09-09-2024 ambulatory Vitaliy Brower DO Work Phone: [facility] Work Phone: Start: 08-31-2024 End: 09-02-2024 Telephone encounter Heladio Pineda MD Work Phone: Rheumatology Comment on above: Orders; Appointment Start: 08-22-2024 End: 08-22-2024 Office outpatient visit 25 minutes Antonio Steele MD Work Phone: [facility] Comment on above: Persistent atrial fi brillation (Multi) (Primary Dx); Multi-vessel coronary artery stenosis; Status post aorto-coronary artery bypass graft; Mixed hyperlipidemia; Dilated aortic root ([facility]-HCC); Cardiomyopathy, ischemic; Presence of Watchman left atrial appendage closure device; BMI 32.0-32.9,adult; Never smoked cigarettes Start: 08-22-2024 End: 08-22-2024 ambulatory [facility] Start: 08-19-2024 End: 08-19-2024 ambulatory Vitaliy Brower DO Work Phone: [facility] Work Phone: Start: 08-19-2024 End: 08-19-2024 Patient encounter procedure Vitaliy Ball DO Work Phone: [facility] Work Phone: Start: 08-12-2024 Non-patient / Non-visit Benjam in Ball DO Work Phone: [facility] Work Phone: Start: 08-12-2024 Non-patient / Non-visit Benjam in Ball DO Work Phone: [facility] Work Phone: Start: 08-11-2024 End: 08-13-2024 ambulatory Mary Ann Mischler Facility:[facility] Start: 08-11-2024 End: 08-13-2024 Evaluation and management of inpatient Vitaliy Ball DO Work Phone: [facility] Work Phone: Start: 08-11-2024 observation encounter Vitaliy Ball DO Work Phone: [facility] Work Phone: Start: 08-06-2024 End: 08-06-2024 ambulatory Vitaliy Ball DO Work Phone: [facility] Work Phone: Start: 08-06-2024 End: 08-06-2024 Patient encounter procedure Vitaliy Ball DO Work Phone: [facility] Work Phone: Start: 08-04-2024 End: 08-04-2024 Patient encounter procedure Vitaliy Ball DO Work Phone: [facility] Work Phone: Start: 08-04-2024 End: 08-04-2024 ambulatory Vitaliy Ball DO Work Phone: [facility] Work Phone: Start: 08-01-2024 End: 08-01-2024 Emergency department patient visit Vitaliy Brower DO Work Phone: [facility]-Emergency Room Work Phone: Start: 07-30-2024 End: 07-30-2024 ambulatory Vitaliy Ball DO Work Phone: [facility] Work Phone: Start: 07-30-2024 End: 07-30-2024 Patient encounter procedure Vitaliy Brower DO Work Phone: [facility] Work Phone: Start: 07-07-2024 End: 07-07-2024 Telephone encounter Heladio Pineda MD Work Phone: Rheumatology Comment on above: Results Start: 07-01-2024 End: 07-01-2024 ambulatory Vitaliy Brower DO Work Phone: [facility] Work Phone: Start: 07-01-2024 End: 07-01-2024 Patient encounter procedure Vitaliy Brower DO Work Phone: [facility] Work Phone: Start: 06-30-2024 Non-patient / Non-visit Benjnickolas in Inocente DO Work Phone: [facility] Work Phone: Start: 06-30-2024 End: 06-30-2024 ambulatory HELADIO PINEDA Facility:[facility] Start: 06-30-2024 End: 06-30-2024 Patient encounter procedure Heladio Pineda MD Work Phone: Rheumatology Comment on above: PMR (polymyalgia rhe umatica) (HCC) (Primary Dx); Elevated LFTs; Anemia of chronic disease; Elevated sed rate; Elevated C-reactive protein (CRP); Vitamin D deficiency; Hyperuricemia; Idiopathic chronic gout of multiple sites without tophus; Secondary osteoarthritis of multiple sites; Pseudogout involving multiple joints; 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; Chronic pain of both knees; CHENCHO positive; Bilateral hand pain; Bilateral hand swelling; Bilateral arm weakness; Leg weakness, bilateral; Rotator cuff arthropathy of left shoulder; Long-term use of high-risk medication Start: 06-13-2024 End: 06-13-2024 Subsequent hospital visit by physician [id number] [facility] Comment on above: Atrial fibrillation, unspecified type (Multi) Start: 06-13-2024 End: 06-13-2024 ambulatory [facility] Start: 05-29-2024 End: 05-29-2024 Patient encounter procedure Vitaliy Ball DO Work Phone: [facility] [place] Work Phone: Start: 05-29-2024 End: 05-29-2024 ambulatory Vitaliy Ball DO Work Phone: [facility] Work Phone: Start: 05-02-2024 End: 05-02-2024 ambulatory [facility] Work Phone: Start: 05-02-2024 End: 05-02-2024 Patient encounter procedure [facility] Work Phone: Start: 04-22-2024 Non-patient / Non-visit [facility] Work Phone: Start: 04-02-2024 End: 04-08-2024 Refill Sarai Velasco MD [facility] Comment on above: Med Refill Start: 03-17-2024 End: 03-17-2024 Patient encounter procedure [facility] Work Phone: Start: 02-18-2024 End: 02-18-2024 ambulatory Vitaliy Ball DO Work Phone: [facility] Work Phone: Start: 02-18-2024 End: 02-18-2024 Patient encounter procedure Vitaliy Ball DO Work Phone: [facility] Work Phone: Start: 02-14-2024 End: 02-14-2024 Office outpatient visit 25 minutes Antonio Steele MD Work Phone: [facility] Comment on above: Persistent atrial fi brillation (Multi) (Primary Dx); Status post aorto-coronary artery bypass graft; Presence of Watchman left atrial appendage closure device; Multi-vessel coronary artery stenosis; Mixed hyperlipidemia; Cardiomyopathy, ischemic; Dilated aortic root ([facility]-HCC); Never smoked cigarettes; BMI 35.0-35.9,adult Start: 02-14-2024 End: 02-14-2024 ambulatory [facility] Start: 02-12-2024 End: 02-12-2024 ambulatory DO Vitaliy Brower Work Phone: [facility] Work Phone: Start: 02-12-2024 End: 02-12-2024 Patient encounter procedure DO Vitaliy Brower Work Phone: [facility] Work Phone: Start: 01-29-2024 End: 01-29-2024 Preprocedural examination done Bird Kowalski MD Work Phone: [facility] Work Phone: Start: 01-29-2024 End: 01-29-2024 Evaluation and management of inpatient Bird Kowalski MD Work Phone: [facility] Comment on above: Atrial fibrillation, unspecified type (Multi) (Primary Dx); Preoperative examination; Presence of Watchman left atrial appendage closure device Start: 01-28-2024 Encounter for other preprocedural examination BIRD KOWALSKI [facility] Start: 01-28-2024 Evaluation and management of inpatient BIRD KOWALSKI [facility] Start: 01-24-2024 End: 01-24-2024 Patient encounter procedure DO Vitaliy Brower Work Phone: [facility] [place] Work Phone: Start: 01-24-2024 End: 01-24-2024 ambulatory DO Vitaliy Ball Work Phone: [facility] Work Phone: Start: 12-31-2023 Non-patient / Non-visit DO Eris franklin Ball Work Phone: [facility] Work Phone: Start: 12-31-2023 Non-patient / Non-visit DO Eris franklin Ball Work Phone: [facility] Work Phone: Start: 12-31-2023 End: 12-31-2023 Admission to same day surgery center DO Vitaliy Ball Work Phone: [facility] Work Phone: Start: 12-31-2023 End: 12-31-2023 ambulatory DO Vitaliy Ball Work Phone: [facility] Work Phone: Start: 12-30-2023 Evaluation and management of inpatient [facility] Start: 12-19-2023 End: 12-19-2023 Office outpatient new 45 minutes Bird Kowalski MD Work Phone: [facility] Comment on above: Paroxysmal atrial fi brillation (Multi) (Primary Dx); Persistent atrial fibrillation (Multi) Start: 12-19-2023 End: 12-19-2023 ambulatory [facility] Start: 12-13-2023 End: 2023 Refill Heladio Pineda MD Work Phone: Rheumatology Comment on above: Refill Request Start: 11-21-2023 Non-patient / Non-visit DO Eris franklin Ball Work Phone: [facility] Work Phone: Start: 11-19-2023 End: 11-19-2023 ambulatory DO Vitaliy Ball Work Phone: [facility] Work Phone: Start: 11-19-2023 End: 11-19-2023 Encounter for general adult medical examination without abnormal findings DO Vitaliy Brower Work Phone: [facility] Start: 11-19-2023 End: 11-19-2023 Patient encounter procedure DO Vitaliy Brower Work Phone: [facility] Work Phone: Start: 10-18-2023 End: 10-18-2023 Office outpatient visit 25 minutes Antonio Steele MD Work Phone: [facility] Comment on above: Persistent atrial fi brillation (Multi) (Primary Dx); Status post aorto-coronary artery bypass graft; Mixed hyperlipidemia; Cardiomyopathy, ischemic; Multi-vessel coronary artery stenosis; BMI 35.0-35.9,adult; Never smoked cigarettes Start: 10-02-2023 End: 10-02-2023 ambulatory DO Vitaliy Brower Work Phone: [facility] Work Phone: Start: 10-02-2023 End: 10-02-2023 Patient encounter procedure DO Vitaliy Brower Work Phone: [facility] Work Phone: Start: 09-19-2023 End: 09-19-2023 ambulatory SANTOS DEBORAH Not Available Start: 09-09-2023 Telephone encounter Heladio alvarado MD Work Phone: Rheumatology Comment on above: Results Start: 09-07-2023 End: 09-07-2023 ambulatory DO Vitaliy Brower Work Phone: [facility] Work Phone: Start: 09-07-2023 End: 09-07-2023 Patient encounter procedure DO Vitaliy Brower Work Phone: [facility] Work Phone: Start: 09-07-2023 Non-patient / Non-visit DO Eris Brower Work Phone: [facility] Work Phone: Start: 09-05-2023 Refill Heladio Pineda MD Work Phone: Rheumatology Comment on above: Refill Request Start: 09-05-2023 Non-patient / Non-visit DO Eris Brower Work Phone: [facility] [place] Work Phone: Start: 08-30-2023 End: 09-01-2023 Evaluation and management of inpatient DO Vitaliy Brower Work Phone: [facility] Work Phone: Start: 08-16-2023 End: 08-16-2023 Professional / ancillary services management Ky Navarro [facility] Comment on above: Paroxysmal atrial fi brillation (Multi) Start: 08-02-2023 End: 08-02-2023 Admission to same day surgery center DO Vitaliy Brower Work Phone: [facility]Electrodiagnostics Work Phone: Start: 08-02-2023 End: 08-02-2023 ambulatory DO Vitaliy Brower Work Phone: [facility] [facility] Work Phone: Start: 07-27-2023 End: 07-27-2023 Office outpatient new 60 minutes Antonio Steele MD Work Phone: [facility] Comment on above: Persistent atrial fi brillation (Multi) (Primary Dx); Multi-vessel coronary artery stenosis; Cardiomyopathy, ischemic; Mixed hyperlipidemia; 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 (Multi); Status post aorto-coronary artery bypass graft; 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; BMI 35.0-35.9,adult Start: 07-09-2023 Telephone encounter Heladio alvarado MD Work Phone: Rheumatology Comment on above: Results Start: 07-05-2023 Non-patient / Non-visit DO Eris Brower Work Phone: [facility] Work Phone: Start: 06-30-2023 Telephone encounter Heladio alvarado MD Work Phone: Rheumatology Comment on above: Results; Orders Start: 06-29-2023 End: 06-29-2023 ambulatory DO Vitaliy Brower Work Phone: [facility] Work Phone: Start: 06-29-2023 End: 06-29-2023 Patient encounter procedure DO Vitaliy Brower Work Phone: [facility] Work Phone: Start: 06-28-2023 ambulatory UNKNOWN PROVIDER Facili ty:[facility] Start: 06-28-2023 End: 06-28-2023 Subsequent hospital visit by physician Bone Density [facility] Comment on above: 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, T38.0X5A] Start: 06-20-2023 End: 06-20-2023 Patient encounter procedure DO Vitaliy Brower Work Phone: [facility] Work Phone: Start: 06-14-2023 Telephone encounter Kamille Rosario RN [facility] Start: 06-12-2023 End: 06-13-2023 ambulatory [facility] Start: 06-11-2023 Telephone encounter Ambar Figueroa LPN [facility] Comment on above: EP Surgery ( Pt Educ ation) Start: 06-06-2023 End: 06-06-2023 Patient encounter procedure DO Vitaliy Brower Work Phone: [facility] Work Phone: Start: 06-04-2023 End: 06-04-2023 ambulatory HARLEM Marivel [facility] Start: 06-04-2023 End: 06-04-2023 Office outpatient visit 40 minutes Sarai Velasco MD Work Phone: [facility] Comment on above: Persistent atrial fi brillation (CMS-HCC) (Primary Dx); Coronary artery disease involving [place] coronary artery of [place] heart without angina pectoris Start: 06-04-2023 Telephone encounter Ambar Figueroa LPN [facility] Comment on above: EP Surgery (CDVN) Start: 06-04-2023 Non-patient / Non-visit DO Eris franklin Ball Work Phone: [facility] Work Phone: Start: 06-01-2023 Telephone encounter Melinda leos [facility] Start: 05-21-2023 End: 05-21-2023 ambulatory DO Vitaliy Ball Work Phone: [facility] Work Phone: Start: 05-21-2023 End: 05-21-2023 Patient encounter procedure DO Vitaliy Ball Work Phone: [facility]ound [facility] [place] Work Phone: Start: 05-21-2023 End: 05-21-2023 Patient encounter procedure DO Vitaliy Ball Work Phone: [facility] Start: 05-21-2023 End: 05-21-2023 ambulatory DO Vitaliy Ball Work Phone: [facility] Work Phone: Start: 05-21-2023 Office outpatient vi sit 15 minutes Melinda Verduzco [facility] Start: 05-21-2023 Telephone encounter Sarai Mendez II [facility] Start: 05-18-2023 End: 05-18-2023 ambulatory Vitaliy Ball Other [place] Other Start: 05-18-2023 Telephone encounter Vitaliy Brower [facility] Start: 05-16-2023 Office outpatient vi sit 15 minutes Sarai Mendez II [facility] Start: 05-16-2023 End: 05-16-2023 ambulatory DO Vitaliy Ball Work Phone: [facility] Work Phone: Start: 05-16-2023 End: 05-16-2023 Patient encounter procedure DO Vitaliy Ball Work Phone: [facility] Start: 05-07-2023 End: 05-07-2023 ambulatory Sukhjinder Montesinos Other [place] Other Start: 05-07-2023 Office outpatient vi sit 25 minutes Sukhjinder Yamel [facility] Start: 05-07-2023 End: 05-07-2023 Patient encounter procedure DO Vitaliy Ball Work Phone: [facility]- Start: 05-02-2023 End: 05-02-2023 ambulatory Vitaliy Ball Other [place] Other Start: 05-02-2023 Office outpatient vi sit 15 minutes Vitaliy Ball [facility] Start: 05-02-2023 End: 05-02-2023 Patient encounter procedure DO Vitaliy Ball Work Phone: [facility]- Start: 04-18-2023 End: 04-19-2023 Emergency department patient visit [facility] Start: 04-18-2023 Telephone encounter Florence Fermin RN [facility] Start: 04-12-2023 End: 04-12-2023 ambulatory Vitaliy Ball Other [place] Other Start: 04-12-2023 Office outpatient vi sit 15 minutes Vitaliy Ball [facility] Start: 04-12-2023 Patient encounter procedure DO Vitaliy Ball Work Phone: [facility]- Start: 04-11-2023 End: 04-11-2023 ambulatory Sarai Mendez II Other [place] Other Start: 04-11-2023 Postop follow up vis it related to original px Sarai Mendez II [facility] Start: 04-06-2023 End: 04-06-2023 ambulatory Vitaliy Brower Other [place] Other Start: 04-06-2023 Telephone encounter Vitaliy Brower [facility] Start: 04-05-2023 End: 04-05-2023 ambulatory Vitaliy Brower Other [place] Other Start: 04-05-2023 Office outpatient vi sit 15 minutes Vitaliy Inocente [facility] Start: 04-05-2023 End: 04-05-2023 Patient encounter procedure DO Vitaliy Ball Work Phone: [facility] Work Phone: Start: 03-29-2023 Postop follow up vis it related to original px Sarai [place] II [facility] Start: 03-29-2023 End: 03-29-2023 ambulatory DO Vitaliy Brower Work Phone: [facility] Work Phone: Start: 03-29-2023 End: 03-29-2023 Patient encounter procedure DO Vitaliy Brower Work Phone: [facility] Start: 03-15-2023 End: 03-15-2023 ambulatory Sukhjinder Montesinos Other [place] Other Start: 03-15-2023 Office outpatient vi sit 25 minutes Sukhjinder Montesinos [facility] Start: 03-15-2023 Postop follow up vis it related to original px Melinda Verduzco [facility] Start: 03-15-2023 End: 03-15-2023 Patient encounter procedure DO Vitaliy Ball Work Phone: [facility] Work Phone: Start: 03-12-2023 End: 03-12-2023 ambulatory Sarai Andrea II Other [place] Other Start: 03-12-2023 Telephone encounter Sarai [place] II [facility] Start: 03-07-2023 End: 03-07-2023 ambulatory Vitaliy Brower Other [place] Other Start: 03-07-2023 Postop follow up vis it related to original px Sarai العراقيron MULLINS [facility] Start: 03-07-2023 Telephone encounter Vitaliy ESTRADA [facility] Comment on above: Results Start: 03-05-2023 End: 03-05-2023 ambulatory Vitaliy Brower Other [place] Other Start: 03-05-2023 End: 03-05-2023 Patient encounter procedure Heladio Pineda MD Work Phone: Rheumatology Comment on above: PMR (polymyalgia rhe umatica) (HCC) (Primary Dx); Elevated sed rate; Elevated C-reactive protein (CRP); Idiopathic chronic gout of multiple sites without tophus; Pseudogout involving multiple joints; Secondary osteoarthritis of multiple sites; Rotator cuff arthropathy of left shoulder; Pain in right hip; 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; CHENCHO positive; Chronic pain of both knees; Bilateral hand pain Start: 03-05-2023 Telephone encounter Vitaliy ESTRADA [facility] Start: 03-02-2023 Refill Heladio Pineda MD Work Phone: Rheumatology Comment on above: Refill Request Start: 02-28-2023 End: 02-28-2023 ambulatory Melinda Luba Other [place] Other Start: 02-28-2023 Postop follow up vis it related to original px Melinda Chasearney [facility] Start: 02-16-2023 End: 02-16-2023 ambulatory Sarai Andrea MULLINS Other [place] Other Start: 02-16-2023 Telephone encounter Sarai Mendez II [facility] Start: 02-13-2023 Telephone encounter Vitaliy ESTRADA [facility] Start: 02-13-2023 End: 02-13-2023 Admission to same day surgery center DO Vitaliy Ball Work Phone: [facility] [place] Start: 02-13-2023 End: 02-13-2023 ambulatory DO Vitaliy Ball Work Phone: [facility] Work Phone: Start: 02-12-2023 End: 02-12-2023 ambulatory Sukhjinder Montesinos Other [place] Other Start: 02-12-2023 Telephone encounter Sukhjinder Montesinos [facility] Start: 02-06-2023 End: 02-06-2023 ambulatory Sarai Andrea II Other [place] Other Start: 02-06-2023 Telephone encounter Sarai [place] II [facility] Start: 02-02-2023 (Prolonged) Prolonge d Services Sarai Andrea II [facility] Start: 02-02-2023 End: 02-02-2023 ambulatory Sarai Andrea II Other [place] Other Start: 01-31-2023 End: 01-31-2023 ambulatory Sarai Andrea II Other [place] Other Start: 01-31-2023 Patient encounter procedure Sarai [place] II [facility] Start: 01-26-2023 End: 01-26-2023 ambulatory DO Vitaliy Ball Work Phone: [facility] Work Phone: Start: 01-26-2023 End: 01-26-2023 Patient encounter procedure DO Vitaliy Ball Work Phone: [facility] Work Phone: Start: 01-24-2023 End: 01-24-2023 ambulatory Vitaliy Ball Other [place] Other Start: 01-24-2023 Office outpatient vi sit 15 minutes Vitaliy Brower [facility] Start: 01-10-2023 Telephone encounter Heladio alvarado [...] 01-02-2023 End: 01-02-2023 ambulatory Vitaliy Brower Other [place] Other Start: 01-02-2023 Encounter for other preprocedural examination Vitaliy Brower [facility] Start: 01-02-2023 Office outpatient vi sit 25 minutes Vitaliy Brower [facility] Start: 12-26-2022 End: 12-26-2022 ambulatory Melinda Verduzco Other [place] Other Start: 12-26-2022 Office outpatient vi sit 15 minutes Melinda Verduzco [facility] Start: 12-20-2022 End: 12-20-2022 ambulatory Vitaliy Brower Other [place] Other Start: 12-20-2022 Telephone encounter Vitaliy ESTRADA [facility] Start: 12-04-2022 End: 12-04-2022 ambulatory Vitaliy Brower Other [place] Other Start: 12-04-2022 Telephone encounter Vitaliy ESTRADA [facility] Start: 11-23-2022 End: 11-23-2022 ambulatory Vitaliy Brower Other [place] Other Start: 11-23-2022 Telephone encounter Vitaliy Inocente NATALIE [facility] Start: 11-22-2022 End: 11-22-2022 ambulatory Sarai Sandersethel MLULINS Other [place] Other Start: 11-22-2022 Telephone encounter Sarai Sandersethel MULLINS [facility] Start: 11-21-2022 End: 11-21-2022 ambulatory Melinda Verduzco Other [place] Other Start: 11-21-2022 Office outpatient vi sit 15 minutes Melinda Verduzco [facility] Start: 11-13-2022 End: 11-13-2022 Patient encounter procedure DO Vitaliy Ball Work Phone: [facility] [place] Work Phone: Start: 11-13-2022 End: 11-13-2022 ambulatory DO Vitaliy Ball Work Phone: [facility] Work Phone: Start: 11-06-2022 End: 11-06-2022 ambulatory Vitaliy Brower Other [place] Other Start: 11-06-2022 Telephone encounter Vitaliy Inocente NATALIE Pal [facility] Start: 11-01-2022 (Procedure) Short Jonathan Samano [facility] Start: 11-01-2022 End: 11-01-2022 ambulatory Jonathan Samano Other [place] Other Start: 10-26-2022 End: 10-26-2022 ambulatory DO Vitaliy Ball Work Phone: [facility] Work Phone: Start: 10-26-2022 End: 10-26-2022 Patient encounter procedure DO Vitaliy Ball Work Phone: [facility] Start: 10-25-2022 End: 10-25-2022 ambulatory Vitaliy Brower Other [place] Other Start: 10-25-2022 Office outpatient vi sit 15 minutes Vitaliy Inocente [facility] Start: 10-11-2022 End: 10-11-2022 Emergency department patient visit DO Vitaliy Ball Work Phone: [facility]-Emergency Room Work Phone: Start: 10-05-2022 End: 10-05-2022 ambulatory Sarai Mendez II Other [place] Other Start: 10-05-2022 Telephone encounter Sarai Mendez II [facility] Start: 10-04-2022 End: 10-04-2022 ambulatory Vitaliy Brower Other [place] Other Start: 10-04-2022 Telephone encounter Vitaliy Brower FP [facility] Start: 10-03-2022 End: 10-03-2022 ambulatory Vitaliy Brower Other [place] Other Start: 10-03-2022 Office outpatient vi sit 15 minutes Vitaliy Brower [facility] Start: 10-02-2022 Telephone encounter Jonathan ESTRADA [facility] Start: 10-02-2022 End: 10-02-2022 ambulatory DO Vitaliy Ball Work Phone: [facility] Work Phone: Start: 10-02-2022 End: 10-02-2022 Patient encounter procedure DO Vitaliy Ball Work Phone: [facility]-Lab [address] Work Phone: Start: 09-27-2022 End: 09-27-2022 ambulatory Vitaliy Ball Other [place] Other Start: 09-27-2022 Telephone encounter Vitaliy Ball FP [facility] Start: 08-29-[address] VITALYI BROWER Facili ty:[facility] Start: 08-09-2022 End: 08-09-2022 ambulatory Vitaliy Brower Other [place] Other Start: 08-09-2022 Office outpatient vi sit 15 minutes Vitaliy Brower [facility] Start: 08-07-2022 End: 08-07-2022 ambulatory Jonathan Samano Other [place] Other Start: 08-07-2022 Office outpatient vi sit 15 minutes Jonathan Samano [facility] [place] Start: 08-02-2022 End: 08-02-2022 ambulatory DO Vitaliy Brower Work Phone: [facility] Work Phone: Start: 08-02-2022 End: 08-02-2022 Patient encounter procedure DO Vitaliy Brower Work Phone: [facility] Start: 08-01-2022 End: 08-01-2022 ambulatory Vitaliy Brower Other [place] Other Start: 08-01-2022 Telephone encounter Vitaliy ESTRADA [facility] Start: 07-31-2022 (Procedure) Short Jonathan Samano [facility] Start: 07-31-2022 End: 08-01-[address] VITALIY BROWER [facility] [employer] Other Start: 07-31-2022 Telephone encounter Jonathan ESTRADA [facility] [place] Start: 07-29-2022 End: 07-30-[address] VITALIY BROWER Facility:[facility] Start: 07-28-2022 End: 07-28-2022 ambulatory Vitaliy Brower Other [place] Other Start: 07-28-2022 Office outpatient vi sit 25 minutes Vitaliy Brower [facility] Start: 07-04-2022 End: 07-04-2022 ambulatory Jonathan Olexa Other [place] Other Start: 07-04-2022 Office outpatient vi sit 25 minutes Jonathan Shrestha [facility] Start: 07-03-2022 End: 07-03-2022 ambulatory Melinda Verduzco Other [place] Other Start: 07-03-2022 Telephone encounter Melinda Chasearney [facility] Start: 06-29-2022 End: 06-29-2022 ambulatory DO Vitaliy Ball Work Phone: [facility] Work Phone: Start: 06-29-2022 End: 06-29-2022 Patient encounter procedure DO Vitaliy Ball Work Phone: [facility] [place] Work Phone: Start: 06-09-2022 End: 06-09-2022 ambulatory Vitaliy Brower Other [place] Other Start: 06-09-2022 Telephone encounter Vitaliy ESTRADA [facility] Start: 06-05-2022 End: 06-05-2022 ambulatory Jonathan Samano Other [place] Other Start: 06-05-2022 Office outpatient vi sit 15 minutes Jonathan Samano [facility] [place] Start: 05-29-2022 End: 05-29-2022 ambulatory Vitaliy Inocente Other [place] Other Start: 05-29-2022 Office outpatient vi sit 10 minutes Vitaliy Ball [facility] Start: 05-23-2022 End: 05-23-2022 ambulatory Vitaliy Ball Other [place] Other Start: 05-23-2022 Office outpatient vi sit 15 minutes Vitaliy Ball [facility] Start: 05-23-2022 Telephone encounter Vitaliy Brower [facility] Start: 05-22-2022 End: 05-22-2022 Emergency department patient visit DO Vitaliy Brower Work Phone: [facility]Emergency [facility] Work Phone: Start: 05-01-2022 (Procedure) Binta Samano [facility] Start: 05-01-2022 End: 05-01-2022 ambulatory Jonathan Vieiraer Other [place] Other Start: 04-24-2022 (Procedure) Binta Samano [facility] Start: 04-24-2022 End: 04-24-2022 ambulatory Jonathan Vieiraer Other [place] Other Start: 04-12-2022 Office outpatient vi sit 25 minutes Jonathan Darieler [facility] Start: 04-12-2022 End: 04-12-2022 ambulatory DO Vitaliy Brower Work Phone: [facility] Work Phone: Start: 04-12-2022 End: 04-12-2022 Patient encounter procedure DO Vitaliy Ball Work Phone: [facility] Start: 03-20-2022 (Procedure) Binta Samano [facility] Start: 03-20-2022 End: 03-20-2022 ambulatory Jonathan Vieiraer Other [place] Other Start: 03-08-2022 End: 03-08-2022 ambulatory Jonathan Vieiraer Other [place] Other Start: 03-08-2022 Office outpatient vi sit 25 minutes Jonathan Vieiraer [facility] [place] Start: 02-22-2022 (Procedure) Binta Samano [facility] Start: 02-22-2022 End: 02-22-2022 ambulatory Jonathan Vieiraer Other [place] Other Start: 02-15-2022 Office outpatient ne w 45 minutes Chio Nichole [facility] Start: 02-15-2022 End: 02-15-2022 ambulatory DO Vitaliy Brower Work Phone: [facility] Work Phone: Start: 02-15-2022 End: 02-15-2022 Patient encounter procedure DO Vitaliy Brower Work Phone: [facility] Start: 02-13-2022 End: 02-13-2022 ambulatory Jonathan Samano Other [place] Other Start: 02-13-2022 Office outpatient vi sit 25 minutes Jonathan Samano [facility] Start: 12-26-2021 End: 12-26-2021 Patient encounter procedure DO Vitaliy Brower Work Phone: [facility] [place] Start: 11-30-2021 End: 12-21-[address] VITALIY BROWER Facility: Start: 11-28-2021 Pre-procedure evaluation check Jonathan Samano Other [place] Other Start: 09-28-2021 End: 09-28-2021 ambulatory Sarai Mendez II Other [place] Other Start: 09-28-2021 Postop follow up vis it related to original px Sarai [place] II [facility] Start: 09-28-2021 End: 09-28-2021 Patient encounter procedure DO Vitaliy Brower Work Phone: [facility] Start: 09-12-2021 End: 09-12-2021 ambulatory Melinda Verduzco Other [place] Other Start: 09-12-2021 Office outpatient vi sit 15 minutes Melinda Verduzco [facility] Start: 08-17-2021 (Post-Op) Post-Op Sarai [place] II [facility] Start: 08-17-2021 End: 08-17-2021 ambulatory Sarai [place] II Other [place] Other Start: 07-20-2021 (Post-Op) Post-Op Sarai [place] II [facility] Start: 07-20-2021 End: 07-20-2021 ambulatory Sarai [place] II Other [place] Other Start: 06-24-2021 (Prolonged) Prolonge d Services Sarai Andrea II [facility] Start: 06-24-2021 End: 06-24-2021 ambulatory Sarai [place] II Other [place] Other Start: 06-17-2021 End: 06-17-2021 ambulatory Sarai [place] II Other [place] Other Start: 06-17-2021 Office outpatient vi sit 25 minutes Sarai Andrea II [facility] Start: 05-27-2021 Adult health examination Jonathan Samano Other [place] Other Start: 03-25-2021 End: 03-25-2021 ambulatory Sarai Andrea II Other [place] Other Start: 03-25-2021 Telephone encounter Sarai Andrea II [facility] Start: 03-24-2021 End: 03-24-2021 ambulatory Jonathan Samano Other [place] Other Start: 03-24-2021 Telephone encounter Jonathan Samano [facility] Start: 02-22-2021 End: 02-22-2021 ambulatory Jonathan Samano Other [place] Other Start: 02-22-2021 Office outpatient vi sit 25 minutes Jonathan Samano [facility] [place] Start: 02-15-2021 (Procedure) Short Jonathan Samano [facility] Start: 02-15-2021 End: 02-15-2021 ambulatory Jonathan Samano Other [place] Other Start: 01-20-2021 Telephone encounter Jonathan [facility] Start: 01-05-2021 Office outpatient vi sit 15 minutes Jonathan Samano [facility] [place] Start: 06-01-2009 ambulatory Genie rosas MD Work Phone: Radiology Start: 06-01-2009 End: 06-01-2009 Patient encounter procedure Genie Hdez MD Work Phone: [facility] Procedures Date Procedure Procedure Detail Performing Clinician Start: 12-15-2024 Follow-up visit Follow-up ANTONIO STEELE Start: 11-19-2024 Ecg routine ecg w/le ast 12 lds w/i&r Antonio Steele MD Work Phone: Start: 10-23-2024 Plain X-ray 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 Vitaliy Ball DO Work Phone: Start: 09-30-2024 CT of head without contrast Vitaliy Ball DO Work Phone: Start: 09-30-2024 Plain chest X-ray Dimitry min Ball DO Work Phone: Start: 09-30-2024 Bacteria identified in Blood by Culture Vitaliy Ball DO Work Phone: Start: 09-30-2024 Urine culture Vitaliy Ball DO Work Phone: Start: 09-29-2024 CL LHC & COR Angio w/grafts Vitaliy Ball DO Work Phone: Start: 09-29-2024 Vitaliy B all DO Work Phone: Start: 08-22-2024 Ecg routine ecg w/le ast 12 lds w/i&r Antonio Steele MD Work Phone: Start: 08-12-2024 Radionuclide myocard ial perfusion stress study Vitaliy Ball DO Work Phone: Start: 08-11-2024 Duplex scan of lower limb veins Vitaliy Ball DO Work Phone: Start: 08-11-2024 Plain chest X-ray Dimitry timi Ball DO Work Phone: Start: 08-06-2024 Plain X-ray of left hip Vitaliy Ball DO Work Phone: Start: 08-04-2024 Plain X-ray of left hand Vitaliy Ball DO Work Phone: Start: 08-01-2024 Plain X-ray of left hip Vitaliy Ball DO Work Phone: Start: 01-29-2024 Echo transthorc r-t 2d w/wo m-mode rec f-up/lmtd Sammi R [place]ored[place] FOAM TANK LAMINATOR-RECREATION ACTIVITIES COORDINATOR Work Phone: Start: 01-29-2024 Echo transthorc r-t 2d w/wo m-mode rec f-up/lmtd Sammi R [place] [employer] TANK LAMINATOR-RECREATION ACTIVITIES COORDINATOR Work Phone: Start: 01-29-2024 Basic metabolic pane l calcium total Samim R [place] [employer] TANK LAMINATOR-RECREATION ACTIVITIES COORDINATOR Work Phone: Start: 01-29-2024 Blood typing serolog ic rh (d) Sammi R Loredo [employer]AM TANK LAMINATOR-RECREATION ACTIVITIES COORDINATOR Work Phone: Start: 01-29-2024 Ecg routine ecg w/le ast 12 lds trcg only w/o i&r Sammi R Loredo [employer] TANK LAMINATOR-RECREATION ACTIVITIES COORDINATOR Work Phone: Start: 01-29-2024 Ct heart contrast ev al cardiac structure&morph Bird Kowalski MD Work Phone: Start: 12-31-2023 Screening colonoscopy D O Vitaliy Brower Work Phone: Start: 12-31-2023 Colonoscopy Bird prajapati MD Work Phone: Start: 08-30-2023 CT angiography of ne ck vessels DO Vitaliy Ball Work Phone: Start: 08-30-2023 Computed tomography of abdomen and pelvis with contrast DO [facility] Work Phone: Start: 08-30-2023 CT angiography of head DO [facility] Work Phone: Start: 08-30-2023 CT of head without contrast DO [facility] Work Phone: Start: 08-30-2023 Plain chest X-ray DO Be njamin [facility] Work Phone: Start: 08-30-2023 Bacterial ID (NA Mul tiplex Assay) DO [facility] Work Phone: Start: 08-30-2023 Blood culture for bacteria, including anaerobic screen DO [facility] Work Phone: Start: 08-30-2023 Respiratory Panel (PCR) DO [facility] Work Phone: Start: 08-30-2023 SARS-CoV-2, Influenz a & RSV (PCR) DO [facility] Work Phone: Start: 08-16-2023 Ecg routine ecg w/le ast 12 lds w/i&r Antonio Steele MD Work Phone: Start: 07-27-2023 History of coronary artery bypass grafting Status post aorto-coronary artery bypass graft Antonio Steele MD Work Phone: Start: 07-27-2023 Ecg routine [...] Duplex scan of lower limb veins DO [facility] Work Phone: Start: 05-21-2023 X-ray of left knee DO B enjamin [facility] Work Phone: Start: 05-16-2023 Plain X-ray 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 DO Vitaliy Ball Work Phone: Start: 03-29-2023 Plain X-ray 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 DO Vitaliy Ball Work Phone: Start: 02-13-2023 Plain X-ray 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 DO Vitaliy Ball Work Phone: Start: 02-13-2023 Total replacement 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 joint DO Vitaliy [facility] Work Phone: Start: 02-13-2023 Plain X-ray 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 DO Vitaliy [facility] Work Phone: Start: 10-26-2022 Plain X-ray 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 DO Vitaliy [facility] Work Phone: Start: 10-11-2022 CT of head without contrast DO Vitaliy [facility] Work Phone: Start: 08-02-2022 Plain X-ray of right shoulder DO Vitaliy [facility] Work Phone: Start: 08-02-2022 Plain X-ray of left hip DO Vitaliy [facility] Work Phone: Start: 07-29-[address] TABARES [place] Comment on above: Performed By: #### P [facility] #### [facility] [address] [place] [address] Dr. Tracy Hubbard Start: 06-29-2022 MRI of left shoulder DO Vitaliy [facility] Work Phone: Start: 05-22-2022 Plain X-ray of left elbow DO Vitaliy [facility] Work Phone: Start: 05-22-2022 Plain X-ray of left shoulder DO Vitaliy [facility] Work Phone: Start: 04-12-2022 Plain X-ray 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 DO Vitaliy [facility] Work Phone: Start: 02-15-2022 Plain X-ray of right hand DO Vitaliy [facility] Work Phone: Start: 12-26-2021 XR pre/post mri xray DO Vitaliy [facility] Work Phone: Start: 12-26-2021 MRI of cervical spin e without contrast DO [facility] Work Phone: Start: 09-28-2021 Plain X-ray of left hip DO [facility] Work Phone: Start: 12-11-2014 Screening for malign [...] bypass graft Antonio Steele MD Work Phone: History of coronary artery bypass grafting Status post aorto-coronary artery bypass graft Antonio Steele MD Work Phone: History of coronary artery bypass grafting Status post aorto-coronary artery bypass graft nAtonio Steele MD Work Phone: History of coronary artery bypass grafting Status post aorto-coronary artery bypass graft Antonio Steele MD Work Phone: History of operative procedure on knee Jonathan Samano Other Screening for malign ant neoplasm of prostate Jonathan Samano Other Plan of Treatment Date Care Activity Detail Author Start: 12-16-2034 RSV Vaccine (1 - 1-dose 75+ series) RSV Vaccine (1 - 1-dose 75+ series) [facility] Start: 12-30-2033 Screening for malignant neoplasm of colon [facility] Start: 05-14-2030 DTaP,Tdap and Td Vaccines (2 - Tdap) DTaP,Tdap and Td Vaccines (2 - Tdap) [employer] Start: 05-14-2030 DTaP/Tdap/Td Vaccines (2 - Tdap) DTaP/Tdap/Td Vaccines (2 - Tdap) [facility] Start: 05-14-2030 Urine microalbumin profile DTaP,Tdap,Td Vaccine (2 - Tdap) [facility] Start: 07-30-2027 Prostate Cancer Screening Discussion Prostate Cancer Screening Discussion [facility] Start: 07-30-2027 Prostate specific antigen measurement Prostate Cancer Screening Discussion [facility] Start: 07-01-2027 Diabetes Screening Diabetes Screening [facility] Start: 01-28-2027 Diabetes Screening Diabetes Screening [facility] Start: 06-11-2026 Diabetes Screening Diabetes Screening [facility] Start: 01-05-2026 Diabetes Screening Diabetes Screening [facility] Start: 08-25-2025 End: 08-25-2025 Patient encounter procedure 08/25/2025 12:00 PM EDT Office Visit Rheumatology [address] [place] [address] Heladio Pineda MD [address] [facility] [place] [address] Follow up for osteoarthritis/PMR/gout in 6-12months Rheumatology Comment on above: Follow up for osteoarthritis/PMR/gout in 6-12months Start: 06-29-2025 End: 06-29-2025 Patient encounter procedure 06/29/2025 9:00 AM EDT Office Visit Rheumatology [address] [place] [address] Heladio Pineda MD [address] [place] [address] Return for gout/osteoarthritis/pseu dogout/low vit fu OV 6-12months. Rheumatology Comment on above: Return for gout/osteoarthritis/pseudogou t/low vit fu OV 6-12months. Start: 06-27-2025 Screening for osteoporosis Bone Density Scan [facility] Start: 01-28-2025 Diabetes mellitus screening Diabetes Screening [facility] Start: 12-22-2024 End: 12-22-2024 Patient encounter procedure 12/22/2024 11:30 AM EDT Office Visit [address] [place] [phone] Antonio Steele MD [address] [facility] [address] [place] [address] [facility] Start: 12-14-2024 [facility] Start: 12-13-2024 [facility] Start: 12-12-2024 [facility] Start: 12-09-2024 Hospital admission [facility] Start: 12-08-2024 Influenza vaccination [facility] Start: 12-03-2024 End: 11-19-2025 Basic metabolic 2000 panel - Serum or Plasma Basic Metabolic Panel Lab Routine Multi-vessel coronary artery stenosis Cardiomyopathy, ischemic Expected: 12/03/2024 (Approximate), Expires: 11/19/2025 [facility] Service Area Work Phone: Comment on above: Expected: 12/03/2024 (Approximate), Expi res: 11/19/2025 Start: 11-19-2024 End: 11-19-2026 Cardioversion External Cardioversion External Cardiac Services Routine Persistent atrial fibrillation (Multi) Expected: 11/19/2024 (Approximate), Expires: 11/19/2026 [facility] Work Phone: Comment on above: Expected: 11/19/2024 (Approximate), Expi res: 11/19/2026 Start: 11-19-2024 Medicare Annual Wellness Visit Medicare Annual Wellness Visit (AWV) [facility] Start: 10-23-2024 Plain X-ray 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 XR hip RT min 2V(w/wo pelvis)* [facility] Start: 10-23-2024 XR Hip - right 2 Views [facility] Start: 10-06-2024 End: 07-07-2025 25-hydroxyvitamin D3 [Mass/volume] in Serum or Plasma VITAMIN D 25 HYDROXY Lab Routine Vitamin D deficiency Expected: 10/06/2024 (Approximate), Expires: 07/07/2025 [facility] Comment on above: Expected: 10/06/2024 (Approximate), Expi res: 07/07/2025 Start: 10-01-2024 [facility] Start: 10-01-2024 Physical therapy procedure [facility] Start: 09-30-2024 End: 09-30-2024 Urine culture [facility] Start: 09-30-2024 Hospital admission [facility] Start: 09-30-2024 Referral to rn testing [facility] Start: 09-30-2024 [facility] Start: 09-30-2024 Bacteria identified in Blood by Culture Blood Culture [facility] Start: 09-30-2024 End: 09-30-2024 Patient encounter procedure 09/30/2024 10:30 AM EDT Office Visit [address] [place] [address] Antonio Steele MD [address] [facility] [address] [place], [place] [id number] [facility] Start: 09-29-2024 [facility] Start: 09-29-2024 [facility] Start: 09-29-2024 Hospital admission [facility] Start: 09-13-2024 End: 09-13-2024 Follow-up encounter 09/13/2024 10:00 AM EDT [facility] [address] [place] [address] Heladio Pineda MD [address] [place] [address] follow up Rheumatology Comment on above: follow up Start: 09-08-2024 End: 09-08-2024 ambulatory 09/08/2024 10:30 AM EDT Results Only [facility] [address] [place] [address] [place] [address] LAB [facility] Comment on above: LAB Start: 09-05-2024 End: 08-22-2026 Cardioversion External Cardioversion External Cardiac Services Routine Persistent atrial fibrillation (Multi) Expected: 09/05/2024 (Approximate), Expires: 08/22/2026 [facility] Service Area Work Phone: Comment on above: Expected: 09/05/2024 (Approximate), Expi res: 08/22/2026 Start: 08-13-2024 [facility] Start: 08-11-2024 Referral to rn testing [facility] Start: 08-11-2024 Hospital admission [facility] Start: 08-06-2024 End: 07-07-2025 CBC panel - Blood by Automated count COMPLETE BLOOD COUNT Lab Routine Anemia of chronic disease Expected: 08/06/2024 (Approximate), Expires: 07/07/2025 [facility] Comment on above: Expected: 08/06/2024 (Approximate), Expi res: 07/07/2025 Start: 08-06-2024 End: 07-07-2025 Comprehensive metabolic 2000 panel - Serum or Plasma COMPREHENSIVE METABOLIC PANEL Lab Routine Elevated LFTs Expected: 08/06/2024 (Approximate), Expires: 07/07/2025 [facility] Work Phone: Comment on above: Expected: 08/06/2024 (Approximate), Expi res: 07/07/2025 Start: 08-06-2024 End: 11-05-2024 Urate [Mass/volume] in Serum or Plasma URIC ACID Lab Routine Hyperuricemia Expected: 08/06/2024 (Approximate), Expires: 11/05/2024 [facility] Comment on above: Expected: 08/06/2024 (Approximate), Expi res: 11/05/2024 Start: 08-06-2024 Plain X-ray of left hip XR hip LT min 2V(w/wo pelvis)* [facility] Start: 08-06-2024 XR Hip - left 2 Views [facility] Start: 08-04-2024 Plain X-ray of left hand XR hand LT min 3V* [facility] Start: 08-04-2024 XR Hand - left GE 3 Views [facility] Start: 06-29-2024 End: 06-29-2025 C reactive protein [Mass/volume] in Serum or Plasma C-REACTIVE PROTEIN Lab Routine Elevated sed rate Elevated C-reactive protein (CRP) Expected: 06/29/2024 (Approximate), Expires: 06/29/2025 [facility] Comment on above: Expected: 06/29/2024 (Approximate), Expi res: 06/29/2025 Start: 06-29-2024 End: 06-29-2025 Comprehensive metabolic 2000 panel - Serum or Plasma COMPREHENSIVE METABOLIC PANEL Lab Routine Elevated LFTs Expected: 06/29/2024 (Approximate), Expires: 06/29/2025 [facility] Work Phone: Comment on above: Expected: 06/29/2024 (Approximate), Expi res: 06/29/2025 Start: 06-29-2024 End: 06-29-2025 Erythrocyte sedimentation rate SEDIMENTATION RATE, WESTERGREN Lab Routine Elevated sed rate Elevated C-reactive protein (CRP) Expected: 06/29/2024 (Approximate), Expires: 06/29/2025 [facility] Comment on above: Expected: 06/29/2024 (Approximate), Expi res: 06/29/2025 Start: 06-29-2024 End: 09-28-2024 Urate [Mass/volume] in Serum or Plasma URIC ACID Lab Routine Hyperuricemia Expected: 06/29/2024 (Approximate), Expires: 09/28/2024 [facility] Comment on above: Expected: 06/29/2024 (Approximate), Expi res: 09/28/2024 Start: 06-04-2024 Adult BMI Screening Adult BMI Screening [facility] Start: 06-04-2024 Tobacco Screening Tobacco Screening [facility] Start: 05-20-2024 End: 05-20-2024 Patient encounter procedure 05/20/2024 10:30 AM EST Appointment [address] [phone] [facility] Start: 04-28-2024 End: 04-28-2024 Patient encounter procedure 04/28/2024 8:40 AM EST Office Visit [facility] [address] [facility] [address] [place] [phone] Antonio Steele MD [address] [facility] [address], [address] [place] [address] [facility] Start: 04-18-2024 Tobacco Screening Tobacco Screening [facility] Start: 04-09-2024 Medicare Advantage Annual Wellness Visit Medicare Advantage Annual Wellness Visit [facility] Start: 03-17-2024 End: 03-17-2024 Patient encounter procedure 03/17/2024 9:00 AM EST Office Visit Rheumatology [address] [facility] [place] [address] Heladio Pineda MD [address] [place] [address] for PMR/osteoarthritis/gout fu OV 6months Rheumatology Comment on above: for PMR/osteoarthritis/gout fu OV 6month s Start: 02-14-2024 End: 02-13-2025 Lipid 1996 panel - Serum or Plasma Lipid Panel Lab Routine Mixed hyperlipidemia Expected: 02/14/2024 (Approximate), Expires: 02/13/2025 [facility] Service Area Work Phone: Comment on above: Expected: 02/14/2024 (Approximate), Expi res: 02/13/2025 Start: 02-14-2024 End: 02-14-2024 Patient encounter procedure 02/14/2024 2:00 PM EST Office Visit [facility] [address] [facility] [address] [place] [address] Antonio Steele MD [address] [facility] [address] [place], [place] [phone] [facility] Start: 01-03-2024 Adult BMI Screening Adult BMI Screening [facility] Start: 12-31-2023 [facility] Start: 12-09-2023 COVID-19 Vaccine ( season) COVID-19 Vaccine () [facility] Start: 12-09-2023 COVID-19 Vaccine ( season) COVID-19 Vaccine ( season) [facility] Start: 12-09-2023 Covid-19 Vaccine () Covid-19 Vaccine ( season) [facility] Start: 12-09-2023 COVID-19 Vaccine ( season) COVID-19 Vaccine ( season) [facility] Start: 12-09-2023 Influenza vaccination [facility] Start: 12-03-2023 Patient referral [facility] Work Phone: Start: 10-18-2023 End: 10-18-2023 Patient encounter procedure 10/18/2023 2:40 PM EDT Office Visit [facility] [address] [facility] [address] [place] [address] Antonio [facility] MD [facility] [facility] [address] [place] [address] [facility] Start: 10-08-2023 End: 07-08-2024 25-hydroxyvitamin D3 [Mass/volume] in Serum or Plasma VITAMIN D 25 HYDROXY Lab Routine Vitamin D deficiency Expected: 10/08/2023 (Approximate), Expires: 07/08/2024 [facility] Work Phone: Comment on above: Expected: 10/08/2023 (Approximate), Expi res: 07/08/2024 Start: 10-08-2023 End: 01-07-2024 Urate [Mass/volume] in Serum or Plasma URIC ACID Lab Routine Hyperuricemia Idiopathic chronic gout of multiple sites without tophus Expected: 10/08/2023 (Approximate), Expires: 01/07/2024 [facility] Work Phone: Comment on above: Expected: 10/08/2023 (Approximate), Expi res: 01/07/2024 Start: 10-03-2023 End: 10-03-2023 Patient encounter procedure 10/03/2023 9:30 AM EDT Office Visit [facility] [address] [place] [address] Travis Lucas MD [address] [place] [address] [facility] Start: 09-01-2023 [facility] Start: 08-30-2023 [facility] Start: 08-30-2023 Respiratory pathogens DNA and RNA panel - Nasopharynx by ROSIE with non-probe detection [facility] Start: 08-30-2023 Hospital admission [facility] Start: 08-30-2023 [facility] Start: 08-30-2023 Bacteria identified in Blood by Culture Blood Culture [facility] Start: 08-30-2023 Blood culture for bacteria, including anaerobic screen Blood Culture [facility] Start: 08-16-2023 End: 08-16-2023 Professional / ancillary services management 08/16/2023 10:00 AM EDT Ancillary Procedure [facility] [address] [address] [facility] Start: 08-10-2023 End: 07-26-2024 ECG 12 Lead ECG 12 Lead ECG Routine 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 (Multi) Expected: 08/10/2023 (Approximate), Expires: 07/26/2024 [facility] Work Phone: Comment on above: Expected: 08/10/2023 (Approximate), Expi res: 07/26/2024 Start: 08-08-2023 End: 07-08-2024 C reactive protein [Mass/volume] in Serum or Plasma C-REACTIVE PROTEIN (CRP) Lab Routine Elevated sed rate Elevated C-reactive protein (CRP) Expected: 08/08/2023 (Approximate), Expires: 07/08/2024 [facility] Work Phone: Comment on above: Expected: 08/08/2023 (Approximate), Expi res: 07/08/2024 Start: 08-08-2023 End: 07-08-2024 Erythrocyte sedimentation rate SED RATE WESTERGREN Lab Routine Elevated sed rate Elevated C-reactive protein (CRP) Expected: 08/08/2023 (Approximate), Expires: 07/08/2024 [facility] Work Phone: Comment on above: Expected: 08/08/2023 (Approximate), Expi res: 07/08/2024 Start: 08-02-2023 [facility] Start: 07-27-2023 End: 07-26-2025 Cardioversion External Cardioversion External Cardiac Services Routine 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 Expected: 07/27/2023 (Approximate), Expires: 07/26/2025 [facility] Service Area Work Phone: Comment on above: Expected: 07/27/2023 (Approximate), Expi res: 07/26/2025 Start: 06-14-2023 End: 06-14-2023 Patient encounter procedure 06/14/2023 1:00 PM EST Appointment [facility] [address] [facility] [place] [phone] Chhaya Whatley MD [address] [place], [place] [phone] [facility] Start: 06-04-2023 End: 06-04-2023 Patient encounter procedure 06/04/2023 2:15 PM EST [facility] [address] [facility] [address] [place] [address] Sarai Velasco MD [address] [place] [address] [facility] Start: 06-04-2023 End: 06-04-2024 Basic metabolic 2000 panel - Serum or Plasma Basic Metabolic Panel Lab Routine Coronary artery disease involving [place] coronary artery of [place] heart without angina pectoris Persistent atrial fibrillation ([facility]) Expected: 06/04/2023 (Approximate), Expires: 06/04/2024 [facility] [employer] [facility] Comment on above: Expected: 06/04/2023 (Approximate), Expi res: 06/04/2024 Start: 06-04-2023 End: 06-04-2024 Cardioversion external Cardioversion external Cardiac Services Routine Persistent atrial fibrillation (CMS-HCC) Expected: 06/04/2023, Expires: 06/04/2024 [employer] Work Phone: Comment on above: Expected: 06/04/2023, Expires: Start: 06-04-2023 End: 06-04-2024 CBC W Auto Differential panel - Blood CBC auto differential Lab Routine Coronary artery disease involving [place] coronary artery of [place] heart without angina pectoris Persistent atrial fibrillation ([facility]) Expected: 06/04/2023 (Approximate), Expires: 06/04/2024 [facility] Comment on above: Expected: 06/04/2023 (Approximate), Expi res: 06/04/2024 Start: 05-21-2023 Duplex scan of lower limb veins US venous duplex [facility] Start: 04-12-2023 End: 01-11-2024 25-hydroxyvitamin D3 [Mass/volume] in Serum or Plasma VITAMIN D 25 HYDROXY Lab Routine Vitamin D deficiency Expected: 04/12/2023 (Approximate), Expires: 01/11/2024 [facility] Work Phone: Comment on above: Expected: 04/12/2023 (Approximate), Expi res: 01/11/2024 Start: 04-12-2023 End: 01-11-2024 Cobalamin (Vitamin B12) [Mass/volume] in Serum or Plasma VITAMIN B12 BLOOD Lab Routine Vitamin B12 deficiency Expected: 04/12/2023 (Approximate), Expires: 01/11/2024 [facility] Work Phone: Comment on above: Expected: 04/12/2023 (Approximate), Expi res: 01/11/2024 Start: 04-09-2023 Behavioral Health Screening Behavioral Health Screening [facility] Start: 04-09-2023 Depression Assessment Depression Assessment [facility] Start: 04-06-2023 End: 03-07-2024 C reactive protein [Mass/volume] in Serum or Plasma C-REACTIVE PROTEIN (CRP) Lab Routine PMR (polymyalgia rheumatica) (HCC) Elevated sed rate Elevated C-reactive protein (CRP) Expected: 04/06/2023 (Approximate), Expires: 03/07/2024 [facility] Work Phone: Comment on above: Expected: 04/06/2023 (Approximate), Expi res: 03/07/2024 Start: 04-06-2023 End: 03-07-2024 Erythrocyte sedimentation rate SED RATE WESTERGREN Lab Routine PMR (polymyalgia rheumatica) (HCC) Elevated sed rate Elevated C-reactive protein (CRP) Expected: 04/06/2023 (Approximate), Expires: 03/07/2024 [facility] Work Phone: Comment on above: Expected: 04/06/2023 (Approximate), Expi res: 03/07/2024 Start: 02-13-2023 End: 02-13-2023 [facility] Start: 02-13-2023 Physical therapy procedure [facility] Start: 02-10-2023 End: 01-11-2024 C reactive protein [Mass/volume] in Serum or Plasma C-REACTIVE PROTEIN (CRP) Lab Routine Elevated sed rate Elevated C-reactive protein (CRP) Expected: 02/10/2023 (Approximate), Expires: 01/11/2024 [facility] Work Phone: Comment on above: Expected: 02/10/2023 (Approximate), Expi res: 01/11/2024 Start: 02-10-2023 End: 01-11-2024 Erythrocyte sedimentation rate SED RATE WESTERGREN Lab Routine Elevated sed rate Elevated C-reactive protein (CRP) Expected: 02/10/2023 (Approximate), Expires: 01/11/2024 [facility] Work Phone: Comment on above: Expected: 02/10/2023 (Approximate), Expi res: 01/11/2024 Start: 01-29-2023 [facility] Start: 01-26-2023 [facility] Start: 01-05-2023 End: 01-06-2024 25-hydroxyvitamin D3 [Mass/volume] in Serum or Plasma [facility] Work Phone: Comment on above: Expected: 01/05/2023 (Approximate), Expi res: 01/06/2024 Start: 01-05-2023 End: 03-07-2023 Aldolase [Enzymatic activity/volume] in Serum or Plasma [facility] Work Phone: Comment on above: Expected: 01/05/2023 (Approximate), Expi res: 03/07/2023 Start: 01-05-2023 End: 01-06-2024 CHENCHO BY IFA WITH REFLEX [facility] Work Phone: Comment on above: Expected: 01/05/2023 (Approximate), Expi res: 01/06/2024 Start: 01-05-2023 End: 01-06-2024 BLOOD TB SCREEN [facility] Work Phone: Comment on above: Expected: 01/05/2023 (Approximate), Expi res: 01/06/2024 Start: 01-05-2023 End: 01-06-2024 Chronic hepatitis differentiation between hepatitis B and C virus panel - Serum or Plasma [facility] Work Phone: Comment on above: Expected: 01/05/2023 (Approximate), Expi res: 01/06/2024 Start: 01-05-2023 End: 01-06-2024 Cyclic citrullinated peptide IgG Ab [Units/volume] in Serum or Plasma [facility] Work Phone: Comment on above: Expected: 01/05/2023 (Approximate), Expi res: 01/06/2024 Start: 12-08-2022 Covid-19 Vaccine ( season) Covid-19 Vaccine () [facility] Start: 12-08-2022 Influenza vaccination [facility] Start: 10-02-2022 Hemolytic complement CH50 level [facility] Start: 10-02-2022 [facility] Start: 08-02-2022 Plain X-ray of right shoulder XR shoulder RT min 2V* [facility] Start: 08-02-2022 Plain X-ray of left hip XR hip LT min 2V(w/wo pelvis)* [facility] Start: 04-09-2022 Depression Assessment Depression Assessment [facility] Start: 06-06-2021 Covid-19 Vaccine (4 - Pfizer series) Covid-19 Vaccine (4 - Pfizer series) [facility] Start: 12-08-2020 Influenza vaccination INFLUENZA (Season Ended) [facility] Start: 2019 Hepatitis B Vaccines (1 of 3 - Risk 3-dose series) Hepatitis B Vaccines (1 of 3 - Risk 3-dose series) [facility] Start: 2019 RSV High Risk: (Elderly (60+) or Population) (1 - Risk 60-74 years 1-dose series) RSV High Risk: (Elderly (60+) or Population) (1 - Risk 60-74 years 1-dose series) [facility] Start: 2019 RSV patients and/or patients aged 60+ years (1 - 1-dose 60+ series) RSV patients and/or patients aged 60+ years (1 - 1-dose 60+ series) [facility] Start: 2019 RSV Vaccine (1 - 1-dose 60+ series) RSV Vaccine (1 - 1-dose 60+ series) [facility] Start: 10-29-2016 DIABETES SCREEN DIABETES SCREEN [facility] Start: 12-16-2014 PROSTATE CANCER SCREENING DISCUSSION PROSTATE CANCER SCREENING DISCUSSION [facility] Start: 12-16-2009 Administration of varicella zoster vaccine Zoster (Shingles) Vaccine (1 of 2) [facility] Start: 12-16-2009 Pneumococcal Vaccine: 50+ (1 of 1 - PCV) Pneumococcal Vaccine: 50+ (1 of 1 - PCV) [facility] Start: 12-16-2009 Prostate specific antigen measurement PSA Prostate Cancer Screening [facility] Start: 12-16-2009 Screening for malignant neoplasm of colon [facility] Start: 12-16-2009 SHINGRIX VACCINE (1 of 2) SHINGRIX VACCINE (1 of 2) [facility] Start: 12-16-2009 Zoster Vaccines (1 of 2) Zoster Vaccines (1 of 2) [facility] Start: 12-16-2004 Cologuard (FIT-DNA) Cologuard (FIT-DNA) [facility] Start: 12-16-2004 Colonoscopy Colonoscopy [facility] Start: 12-16-2004 Colorectal Cancer Screening Colorectal Cancer Screening [facility] Start: 12-16-[address] COLONOGRAPHY [facility] Start: 12-16-2004 Fecal Occult Blood Fecal Occult Blood [facility] Start: 12-16-2004 Screening for malignant neoplasm of colon [facility] Start: 12-16-2004 SIGMOIDOSCOPY SIGMOIDOSCOPY [facility] Start: 12-16-1994 Lipid 1996 panel - Serum or Plasma Lipid Screening [facility] Start: 12-16-1994 Lipid panel Lipid Screening [facility] Start: 12-16-1994 LIPID SCREEN LIPID SCREEN [facility] Start: 12-16-1978 Hepatitis A Vaccines (1 of 2 - Risk 2-dose series) Hepatitis A Vaccines (1 of 2 - Risk 2-dose series) [facility] Start: 12-16-1978 Pneumococcal vaccination Pneumococcal Vaccine (1 of 2 - PCV) [facility] Start: 12-16-1978 Urine microalbumin profile [facility] Start: 12-16-1977 Adult BMI Follow Up Plan Adult BMI Follow Up Plan [facility] Start: 12-16-1977 Annual PCP Team Chronic Disease Visit Annual PCP Team Chronic Disease Visit [facility] Start: 12-16-1977 Anxiety Screening Anxiety Screening [facility] Start: 12-16-1977 Depression Screening Depression Screening [facility] Start: 12-16-1977 Diabetes mellitus screening Diabetes Screening [facility] Start: 12-16-1977 Hepatitis B surface antibody level LDL Cholesterol [facility] Start: 12-16-1977 Hepatitis C screening Hepatitis C Screening [facility] Start: 12-16-1977 HIV SCREENING HIV SCREENING [facility] Start: 12-16-1977 HIV screening HIV Screening [facility] Start: 1971 Adult depression screening assessment DEPRESSION SCREENING [facility] Start: 1971 COVID-19 VACCINE (1) COVID-19 VACCINE (1) [facility] Start: 12-16-1965 Pneumococcal Vaccine: 65+ Years (1 of 2 - PCV) Pneumococcal Vaccine: 65+ Years (1 of 2 - PCV) [facility] Start: 12-16-1965 Pneumococcal Vaccine: Pediatrics (0 to 5 Years) and At-Risk Patients (6 to 64 Years) (1 of 2 - PCV) Pneumococcal Vaccine: Pediatrics (0 to 5 Years) and At-Risk Patients (6 to 64 Years) (1 of 2 - PCV) [facility] Start: 12-16-1960 MMR Vaccines (1 of 1 - Standard series) MMR Vaccines (1 of 1 - Standard series) [facility] Start: 1959 Annual wellness visit Medicare Initial Physical (IPPE) [facility] Start: 1959 HIV screening HIV Screening [facility] Start: 1959 Lipid panel Lipid Panel [facility] Start: 1959 Medicare Annual Wellness Visit Medicare Annual Wellness Visit (AWV) [facility] Start: 1959 Screening for malignant neoplasm of colon [facility] Start: 1959 Thyroid stimulating hormone measurement TSH Level [facility] End: 01-29-2024 Basic metabolic 2000 panel - Serum or Plasma Basic metabolic panel Lab STAT STAT (Lab) for 1 Occurrences starting 01/29/2024 until 01/29/2024 [facility] Work Phone: Comment on above: STAT (Lab) for 1 Occurrences starting until 01/29/2024 End: 02-01-2024 Basic metabolic 2000 panel - Serum or Plasma Basic Metabolic Panel Lab Routine Morning draw (Lab) for 3 Occurrences starting 01/30/2024 until 02/01/2024 [facility] Work Phone: Comment on above: Morning draw (Lab) for 3 Occurrences sta rting 01/30/2024 until 02/01/2024 C reactive protein [Mass/volume] in Serum or Plasma C-REACTIVE PROTEIN Lab Routine Elevated sed rate Elevated C-reactive protein (CRP) 06/30/2024 10:15 AM EDT [facility] End: 01-29-2024 Cardiac catheterization study Cardiac Catheterization Procedure Cardiac Cath Routine Atrial fibrillation, unspecified type (Multi) Once for 1 Occurrences starting 01/29/2024 until 01/29/2024 [facility] Service Area Work Phone: Comment on above: Once for 1 Occurrences starting 01/29/20 until 01/29/2024 Cardiac catheterizat ion study Cardiac Catheterization Procedure Cardiac Cath Routine Atrial fibrillation, unspecified type (Multi) 01/29/2024 1:18 PM EDT [facility] Work Phone: End: 01-29-2024 CBC W Auto Differential panel - Blood CBC and Auto Differential Lab STAT STAT (Lab) for 1 Occurrences starting 01/29/2024 until 01/29/2024 [facility] Work Phone: Comment on above: STAT (Lab) for 1 Occurrences starting until 01/29/2024 End: 02-01-2024 CBC W Auto Differential panel - Blood CBC and Auto Differential Lab Routine Morning draw (Lab) for 3 Occurrences starting 01/30/2024 until 02/01/2024 [facility] Work Phone: Comment on above: Morning draw (Lab) for 3 Occurrences sta rting 01/30/2024 until 02/01/2024 Complement C3 [Mass/volume] in Serum or Plasma [facility] Complement C4 [Mass/volume] in Serum or Plasma [facility] Comprehensive metabo lic 1999 panel - Serum or Plasma [facility] Comprehensive metabo lic 1999 panel - Serum or Plasma COMPREHENSIVE METABOLIC PANEL Lab Routine Elevated LFTs 06/30/2024 10:15 AM EDT [facility] CT Abdomen and Pelvi s W contrast IV [facility] End: 06-13-2024 CT watchman full contrast [facility] Service Area Work Phone: Comment on above: Once for 1 Occurrences starting 06/14/19 until 06/13/2024 End: 02-04-2024 DXA-AXIAL SKELETON DXA-AXIAL SKELETON Radiology Routine Steroid-induced osteoporosis 1 Occurrences starting 01/05/2023 until 02/04/2024 [facility] Work Phone: Comment on above: 1 Occurrences starting 01/05/2023 until 02/04/2024 End: 02-04-2024 DXA-FOREARM SKELETON DXA-FOREARM SKELETON Radiology Routine Steroid-induced osteoporosis 1 Occurrences starting 01/05/2023 until 02/04/2024 [facility] Work Phone: Comment on above: 1 Occurrences starting 01/05/2023 until 02/04/2024 End: 01-31-2024 ECG 12 lead daily ECG 12 lead daily ECG Routine Daily for 3 Days starting 01/29/2024 until 01/31/2024 [facility] Work Phone: Comment on above: Daily for 3 Days starting 01/29/2024 unt il 01/31/2024 Electrocardiogram, 12-lead PRN ACS symptoms Electrocardiogram, 12-lead PRN ACS symptoms ECG Routine As needed until discontinued starting 01/29/2024 [facility] Work Phone: Comment on above: As needed until discontinued starting Erythrocyte sedimentation rate SEDIMENTATION RATE, WESTERGREN Lab Routine Elevated sed rate Elevated C-reactive protein (CRP) 06/30/2024 10:15 AM EDT [facility] End: 01-29-2024 Incentive spirometry Instruct Incentive spirometry Instruct Respiratory Care Routine Once for 1 Occurrences starting 01/29/2024 until 01/29/2024 [facility] Service Area Work Phone: Comment on above: Once for 1 Occurrences starting 01/29/20 until 01/29/2024 End: 01-29-2024 Magnesium [Mass/volume] in Serum or Plasma Magnesium Lab STAT STAT (Lab) for 1 Occurrences starting 01/29/2024 until 01/29/2024 [facility] Work Phone: Comment on above: STAT (Lab) for 1 Occurrences starting until 01/29/2024 End: 02-01-2024 Magnesium [Mass/volume] in Serum or Plasma Magnesium Lab Routine Morning draw (Lab) for 3 Occurrences starting 01/30/2024 until 02/01/2024 [facility] Work Phone: Comment on above: Morning draw (Lab) for 3 Occurrences sta rting 01/30/2024 until 02/01/2024 Patient Education [facility] Work Phone: Patient referral [facility] Work Phone: End: 01-29-2024 Prothrombin time (PT) Protime-INR Lab STAT STAT (Lab) for 1 Occurrences starting 01/29/2024 until 01/29/2024 [facility] Work Phone: Comment on above: STAT (Lab) for 1 Occurrences starting until 01/29/2024 End: 02-01-2024 Prothrombin time (PT) Protime-INR Lab Routine Morning draw (Lab) for 3 Occurrences starting 01/30/2024 until 02/01/2024 [facility] Work Phone: Comment on above: Morning draw (Lab) for 3 Occurrences sta rting 01/30/2024 until 02/01/2024 Corona extractable nuclear Ab [Units/volume] in Serum [facility] SYNOVIAL FLUID CRYST ALS B/O SYNOVIAL FLUID CRYSTALS B/O Lab Routine Swelling of Knee Joint Ordered: 06/01/2009 [facility] Comment on above: Ordered: 06/01/2009 Urate [Mass/volume] in Serum or Plasma URIC ACID Lab Routine Hyperuricemia 06/30/2024 10:15 AM EDT [facility] Immunizations Immunization Date Immunization Notes Care Provider Fa [facility] 04-05-2023 influenza, injectable, quadrivalent, preservative free Vitaliy Brower Other [facility] 04-05-2023 influenza virus vaccine, unspecified formulation Antonio Steele MD Work Phone: [facility] Work Phone: 02-06-2022 influenza, injectable, quadrivalent, contains preservative Sarai Andrea II Other [facility] Other 02-06-2022 influenza virus vaccine, split virus (incl. purified surface antigen) Jonathan Samano Other [facility] 02-06-2022 influenza, injectable, quadrivalent, preservative free DO Vitaliy Inocente Work Phone: [facility] 02-06-2022 influenza virus vaccine, unspecified formulation Heladio Pineda MD Work Phone: [facility] 04-11-2021 COVID-19 mRNA, Comirnaty (Pfizer) DO Vitaliy Brower Work Phone: [facility] 01-18-2021 influenza virus vaccine, split virus (incl. purified surface antigen) Jonathan Samano Other [facility] Other 01-18-2021 Seasonal trivalent influenza vaccine, adjuvanted, preservative free [facility] 01-18-2021 influenza virus vaccine, unspecified formulation Heladio Pineda MD Work Phone: [facility] 06-25-2020 COVID-19 mRNA, Comirnaty (Pfizer) DO [facility] Work Phone: [facility] 06-15-2020 COVID-19 mRNA, Comirnaty (Pfizer) DO [employer] Work Phone: [facility] 06-04-2020 COVID-19 mRNA, Comirnaty (Pfizer) DO [facility] Work Phone: [facility] 05-14-2020 diphtheria, tetanus toxoids and acellular pertussis vaccine, unspecified formulation Jonathan Samano Other [facility] 05-07-2020 Kenalog -40 mg Jonathan Samano Other [facility] Other 01-13-2020 influenza virus vaccine, split virus (incl. purified surface antigen) Jonathan Samano Other [facility] 01-13-2020 influenza virus vaccine, unspecified formulation DO [employer] Work Phone: [facility] 11-03-2019 Kenalog -40 mg Jonathan Samano Other [facility] Other 05-19-2019 Kenalog -40 mg Jonathan Vieiraer Other [facility] Other 01-02-2019 influenza virus vaccine, split virus (incl. purified surface antigen) Jonathan Samano Other [facility] 01-02-2019 influenza virus vaccine, unspecified formulation DO [employer] Work Phone: [facility] 04-08-2018 Kenalog -40 mg Jonathan Vieiraer Other [facility] Other 01-21-2018 influenza virus vaccine, split virus (incl. purified surface antigen) Jonathan Samano Other [facility] Other 01-21-2018 influenza virus vaccine, unspecified formulation DO Vitaliy Brower Work Phone: [facility] 01-21-2018 Influenza, injectable, Madin Obion Canine Kidney, quadrivalent with preservative [facility] 04-16-2017 Kenalog -40 mg Jonathan Samano Other [facility] Other 05-23-2016 Kenalog -40 mg Jonathan Samano Other [facility] Other Payers Date Payer Category Payer Unknown [id number] 2023 Self-pay [id number] 2022 Medicare [id number]. [id number] 2022 Medicare (Managed Care) 1.2. [id number]. [id number] 2022 Medicare HMO [employer] MED[employer]ARE [id number]. [id number] 2014 Medicare [id number] 1959 Unknown [id number] 2.16.840.1.524871.3.579.2. 593 1959 Unknown [id number] 2.16.840.1.935268.3.579.2. 593 1959 Unknown [id number] 2.16.840.1.189605.3.579.2. 593 1959 Unknown [id number] 2.16.840.1.834637.3.579.2. 593 1959 Unknown [id number] 2.16.840.1.924000.3.579.2. 1286 1959 Unknown [id number] 2.16.840.1.915608.3.579.2. 1285 1959 Unknown [id number] 2.16.840.1.167448.3.579.2. 128 1959 Unknown [id number] 2.16.840.1.444807.3.579.2. 1285 1959 Unknown [id number] 2.16.840.1.172975.3.579.2. 1259 1959 Unknown [id number] 2.16.840.1.809024.3.579.2. 1244 1959 Unknown [id number] 2.16.840.1.261945.3.579.2. 1244 1959 Unknown [id number] 2.16.840.1.697889.3.579.2. 1244 1959 Unknown [id number] 2.16.840.1.832174.3.579.2. 1245 1959 Unknown [id number] 2.16.840.1.137947.3.579.2. 1245 1959 Unknown [id number] 2.16.840.1.569998.3.579.2. 1243 1959 Unknown [id number] 2.16.840.1.014301.3.579.2. 1243 1959 Unknown [id number] 2.16.840.1.494990.3.579.2. 1244 1959 Unknown [id number] 2.16.840.1.445740.3.579.2. 1244 1959 Medicare [id number] 2.16.840.1.570832.19 1959 Private Health Insurance [facility] [id number] Medicare Medicare [id number] Medicare [employer] MCR PFFS [id number] Unknown [place] BC/BS [id number] Unknown [id number] 2.16840.1.013631.3.579.2. 531 Unknown [id number] 2.16.840.1.690234.3.579.2. 531 Unknown [id number] 2.16.840.1.535348.3.579.2. 531 Unknown [id number] 2.16.840.1.329552.3.579.2. 531 Unknown [id number] 2.16840.1.896323.3.579.2. 531 Unknown [id number] 2.16840.1.132949.3.579.2. 531 Unknown [id number] 2.16.840.1.379989.3.579.2. 531 Unknown [id number] 2.16.840.1.923040.3.579.2. 531 Unknown [id number] 2.16840.1.582688.3.579.2. 531 Unknown [id number] 2.16.840.1.928810.3.579.2. 531 Unknown [id number] 2.16.840.1.544220.3.579.2. 531 Unknown [id number] 2.16.840.1.377630.3.579.2. 531 Social History Date Type Detail Facility Tobacco smoking stat us NHIS Unknown if ever smoked [facility] Start: 1960 Sex Assigned At Not on file [facility] Start: 01-05-2023 End: 12-19-2023 Sex Assigned At [facility] Start: 07-04-2021 End: 12-09-2024 Tobacco smoking status NHIS Never smoked tobacco (finding) [facility] Start: 1960 Sex Assigned At Male F [facility] Start: 01-05-2023 End: 11-19-2024 Alcohol intake Current drinker of alcohol (finding) [facility] Start: 01-05-2023 End: 12-19-2023 Alcohol intake [facility] Start: 07-09-2023 National Score (1-100), lower number is lower risk 91 [facility] Start: 01-02-2023 End: 07-27-2023 Tobacco use and exposure Smokeless tobacco non-user [facility] Start: 07-17-2023 End: 08-22-2024 Exposure to SARS-CoV-2 (event) Not sure [facility] Start: 02-18-2024 End: 09-11-2024 Sex Male (finding) [facility] Start: 09-29-2024 SDOH Follow up SDOH Follow up [facility] Work Phone: Medical Equipment Procedure Code Equipment Code Equipment Origin al Text Equipment Identifier Dates Arthroplasty, hip, total, anterior approach Acetabular shell [id number] FDA Start: 07-04-2021 Arthroplasty, hip, total, anterior approach Ceramic femoral head prosthesis ()[id number] FDA Start: 07-04-2021 Arthroplasty, hip, total, anterior approach Coated hip femur prosthesis, modular ()[id number] FDA Start: 07-04-2021 Arthroplasty, hip, total, anterior approach Non-constrained polyethylene acetabular liner ()[id number] FDA Start: 07-04-2021 Arthroplasty, hip, total, anterior approach Acetabular shell ()[id number] FDA Start: 02-13-2023 Arthroplasty, hip, total, anterior approach Ceramic femoral head prosthesis ()[id number] FDA Start: 02-13-2023 Arthroplasty, hip, total, anterior approach Coated hip femur prosthesis, modular ()[id number] FDA Start: 02-13-2023 Arthroplasty, hip, total, anterior approach Non-constrained polyethylene acetabular liner ()[id number] FDA Start: 02-13-2023 Device, Closure, 27mm Watchman Flx Pro Laac - [id number] Start: 01-29-2024 Goals Date Patient Goal Desired Activity /State Functional Status Date Assessment Result Facility 12-12-2024 Functional status Patient at Baseline [facility] Work Phone: 10-01-2024 Functional status Patient at Baseline [facility] Work Phone: 09-29-2024 Functional status Patient at Baseline [facility] Work Phone: 08-13-2024 Functional status Patient at Baseline [facility] Work Phone: 09-01-2023 Functional status Patient at Baseline [facility] Work Phone: 08-30-2023 Functional status Disability Sta tus Patient at Baseline [facility] Work Phone: 11-27-2013 Are you deaf, or do you have serious difficulty hearing No 11/27/2013 9:53 AM Jessica Villar (Extractions Technologist)(Hist) No [facility] Work Phone: 11-27-2013 Are you blind, or do you have serious difficulty seeing, even when wearing glasses No 11/27/2013 9:53 AM EDT Jessica Shearer (Extractions Technologist)(Hist) No [facility] 11-27-2013 Do you have serious difficulty walking or climbing stairs No 11/27/2013 9:53 AM EDT Jessica Shearer (Extractions Technologist)(Hist) No [facility] 11-27-2013 Do you have difficul ty dressing or bathing No 11/27/2013 9:53 AM EDT Jessica Shearer (Extractions Technologist)(Hist) No [facility] 11-27-2013 Because of a physica l, mental, or emotional condition, do you have difficulty doing errands alone such as visiting a physician's office or shopping No 11/27/2013 9:53 AM EDT Jessica Shearer (Extractions Technologist)(Hist) No [facility] Mental Status Date Assessment Result Facility 12-12-2024 Cognitive function Cognitive Sta tus Patient at Baseline [facility] Work Phone: 10-01-2024 Cognitive function Cognitive Sta tus Patient at Baseline [facility] Work Phone: 09-29-2024 Cognitive function Cognitive Sta tus Patient at Baseline [facility] Work Phone: 08-13-2024 Cognitive function Cognitive Sta tus Patient at Baseline [facility] Work Phone: 09-01-2023 Cognitive function Cognitive Sta tus Patient at Baseline [facility] Work Phone: 11-27-2013 Because of a physica l, mental, or emotional condition, do you have serious difficulty concentrating, remembering, or making decisions No 11/27/2013 9:53 AM EDT Jessica Shearer (Extractions Technologist)(Hist) No [facility] Clinical Notes 01-05-2021 to 12-11-2024 Note Date & Type Note Facility 12-11-2024 Progress note Note Date/Time December 11, 2024 9:39am [facility] [address] [place] [address] Cardiology Progress Note Signed Patient: Esme Steven MR#: [id number] : 1960 Acct:[id number] Age/Sex: 63 / M Adm Date: 5 Loc: Room: [address] [place] [address] Type: ADM IN Attending Dr: Antonio Steele MD Copies to: ~ Date of Service: 12/11/2024 Subjective Interval history: Patient without new complaint. Remain in A-fib. QTc interval still acceptable Exam Physical Exam Vital Signs: Temp Pulse Resp BP Pulse Ox O2 Del Method 98.0 F 87 16 154/93 H 97 Room Air 12/11/24 08:00 12/11/24 08:00 12/11/24 08:00 12/11/24 08:00 12/11/24 08:00 12/11/24 08:00 Eyes General: appearance normal, both eyes and all related structures Pupils: PERRL Neck Neck: normal visual inspection, supple and no lymphadenopathy noted Neck mass: No Thyroid: thyroid normal Carotids: normal carotid upstroke Chest Chest palpation & inspection: normal inspection of the chest Resp Effort & Inspection: normal respiratory effort Auscultation: clear to auscultation bilaterally Cardio Palpation: normal PMI Rhythm: abnormal rhythm irregularly irregular Heart Sounds: S1 normal and S2 normal GI Palpation: soft and no hepatosplenomegaly Percussion: normal to percussion Auscultation: normal bowel sounds Skin General: no rashes or lesions noted and dry skin Extrem General: full ROM, capillary refill normal and no clubbing, cyanosis or edema Objective Labs 12/11/24 04:31 Labs: Laboratory Results - last 24 hr 12/11/24 04:31 PT 14.4 H INR 1.3 Sodium 136 Potassium 4.2 Chloride 102 Carbon Dioxide 29.5 Anion Gap 8.7 A&P - Cardiology (1) Persistent atrial fibrillation: Code(s): I48.19 - Other persistent atrial fibrillation Plan Assessment 1. Persistent atrial fibrillation failed to remain in sinus rhythm following recent cardioversion. Admitted for dofetilide load 2. Coronary artery disease previous four-vessel bypass surgery adequately revascularized based on recent heart cath 3. Ischemic cardiomyopathy patient on beta-nimo. I recently gave him a prescription for losartan but he report could not tolerate due to hypotension 4. Hypertension 5. Hyperlipidemia 6. Status post Watchman device 7. Mildly dilated aortic root at 4.5 cm Plan 1. We discussed treatment option during recent office visit and today. Patientelected to proceed with dofetilide load followed by cardioversion. Risk, benefits alternatives of dofetilide discussed with patient he understood and agreed we will continue to monitor QTc 2. The patient was advised to be also evaluated for ablation and he has an appointment to discuss that 3. Will monitor QTc interval regularly and proceed with cardioversion today. Risk, benefits alternatives reviewed with patient at length he understood and agreed Documented By: Antonio Steele MD 12/11/24937 Signed By: <Electronically signed by MD Antonio Steele> 12/11/24938 [facility] Work Phone: 1(693) 304-720709-04-2025 [place] [id number] Cardioversion Procedure Note Signed Patient: Esme Steven MR#: [id number] : 1960 Acct:[id number] Age/Sex: 63 / M Adm Date: 5 Loc: Room: [address] [place] [address] Type: ADM IN Attending Dr: Antonio Steele MD Copies to: Vitaliy Brower,DO Antonio Steele MD~ Cardioversion PRE PROCEDURE DATE OF PROCEDURE: 12/11/2024 PRE-OPERATIVE DIAGNOSIS: Atrial Fibrillation POST OPERATIVE DIAGNOSIS: Atrial fibrillation ASA CLASSIFICATION: 3 MALLAMPATI CLASSIFICATION: Class 2: PROCEDURE PROCEDURE PERFORMED: Elective direct current cardioversion under conscious sedation PROCEDURE DESCRIPTION: After informed consent obtained by explaining risks, benefits, and alternatives to patient. Informed consent signed. Continuous blood pressure, O2 saturations, and heart rate monitoring was established. A total of 0.5 mg of atropine were given then 60 mg Diprovan was given and using 150 joules, a synchronized shockwas delivered with anterior/posterior pads position. This resulted in the conversion to normal sinus rhythm. No complications were noted. COMPLICATIONS: None PLAN: 1. Successful cardioversion of atrial fibrillation to normal sinus rhythm. Post cardioversion QTc interval is less than 450 ms 2. Continue present medical regimen Documented By: Antonio Steele MD 12/11/24938 Signed By: 12/11/24939 [facility]09-04-[address] [address] Cardiology Progress Note Signed Patient: Esme Steven MR#: [id number] : 1960 Acct:[id number] Age/Sex: 63 / M Adm Date: 5 Loc: Room: [address] [place] [address] Type: ADM IN Attending Dr: Antonio Steele MD Copies to: ~ Date of Service: 12/11/2024 Subjective Interval history: Patient without new complaint. Remain in A-fib. QTc interval still acceptable Exam Physical Exam Vital Signs: Temp Pulse Resp BP Pulse Ox O2 Del Method 98.0 F 87 16 154/93 H 97 Room Air 12/11/24 08:00 12/11/24 08:00 12/11/24 08:00 12/11/24 08:00 12/11/24 08:00 12/11/24 08:00 Eyes General: appearance normal, both eyes and all related structures Pupils: PERRL Neck Neck: normal visual inspection, supple and no lymphadenopathy noted Neck mass: No Thyroid: thyroid normal Carotids: normal carotid upstroke Chest Chest palpation & inspection: normal inspection of the chest Resp Effort & Inspection: normal respiratory effort Auscultation: clear to auscultation bilaterally Cardio Palpation: normal PMI Rhythm: abnormal rhythm irregularly irregular Heart Sounds: S1 normal and S2 normal GI Palpation: soft and no hepatosplenomegaly Percussion: normal to percussion Auscultation: normal bowel sounds Skin General: no rashes or lesions noted and dry skin Extrem General: full ROM, capillary refill normal and no clubbing, cyanosis or edema Objective Labs 12/11/24 04:31 Labs: Laboratory Results - last 24 hr 12/11/24 04:31 PT 14.4 H INR 1.3 Sodium 136 Potassium 4.2 Chloride 102 Carbon Dioxide 29.5 Anion Gap 8.7 A&P - Cardiology (1) Persistent atrial fibrillation: Code(s): I48.19 - Other persistent atrial fibrillation Plan Assessment 1. Persistent atrial fibrillation failed to remain in sinus rhythm following recent cardioversion. Admitted for dofetilide load 2. Coronary artery disease previous four-vessel bypass surgery adequately revascularized based on recent heart cath 3. Ischemic cardiomyopathy patient on beta-nimo. I recently gave him a prescription for losartanbut he report could not tolerate due to hypotension 4. Hypertension 5. Hyperlipidemia 6. Status post Watchman device 7. Mildly dilated aortic root at 4.5 cm Plan 1. We discussed treatment option during recent office visit and today. Patientelected to proceed with dofetilide load followed by cardioversion. Risk, benefits alternatives of dofetilide discussed with patient he understood and agreed we will continue to monitor QTc 2. The patient was advised to be also evaluated for ablation and he has an appointment to discuss that 3. Will monitor QTc interval regularly and proceed with cardioversion today. Risk, benefits alternatives reviewed with patient at length he understood and agreed Documented By: Antonio Steele MD 12/11/24937 Signed By: 12/11/2439 [facility]09-03-2025 Progress note Author Antonio Steele [facility] Note Date/Time December 10, 2024 11:34am [facility] [address] [place] [address] Cardiology Progress Note Signed Patient: Esme Steven MR#: [id number] : 1960 Acct:[id number] Age/Sex: 63 / M Adm Date: 5 Loc: Room: [address] [place] [address] Type: ADM IN Attending Dr: Antonio Steele MD Copies to: ~ Date of Service: 12/10/2024 Subjective Interval history: Patient without new complaint. Remain in A-fib. QTc interval still acceptable Exam Physical Exam Vital Signs: Temp Pulse Resp BP Pulse Ox O2 Del Method 97.9 F 91 20 146/84 H 99 Room Air 12/10/24 08:00 12/10/24 08:00 12/10/24 08:00 12/10/24 08:00 12/10/24 08:00 12/10/24 08:00 Eyes General: appearance normal, both eyes and all related structures Pupils: PERRL Neck Neck: normal visual inspection, supple and no lymphadenopathy noted Neck mass: No Thyroid: thyroid normal Carotids: normal carotid upstroke Chest Chest palpation & inspection: normal inspection of the chest Resp Effort & Inspection: normal respiratory effort Auscultation: clear to auscultation bilaterally Cardio Palpation: normal PMI Rhythm: abnormal rhythm irregularly irregular Heart Sounds: S1 normal and S2 normal GI Palpation: soft and no hepatosplenomegaly Percussion: normal to percussion Auscultation: normal bowel sounds Skin General: no rashes or lesions noted and dry skin Neuro General: patient alert, patient awake, patient oriented x3, tone normal and moves all extremities Objective Labs 12/09/24 09:06 Labs: Laboratory Results - last 24 hr 12/10/24 04:00 PT 13.7 H INR 1.2 A&P - Cardiology (1) Persistent atrial fibrillation: Code(s): I48.19 - Other persistent atrial fibrillation Plan Assessment 1. Persistent atrial fibrillation failed to remain in sinus rhythm following recent cardioversion. Admitted for dofetilide load 2. Coronary artery disease previous four-vessel bypass surgery adequately revascularized based on recent heart cath 3. Ischemic cardiomyopathy patient on beta-nimo. I recently gave him a prescription for losartan but he report could not tolerate due to hypotension 4. Hypertension 5. Hyperlipidemia 6. Status post Watchman device 7. Mildly dilated aortic root at 4.5 cm Plan 1. We discussed treatment option during recent office visit and today. Patientelected to proceed with dofetilide load followed by cardioversion. Risk, benefits alternatives of dofetilide discussed with patient he understood and agreed we will continue to monitor QTc 2. The patient was advised to be also evaluated for ablation and he has an appointment to discuss that 3. Will monitor QTc interval regularly and proceed with cardioversion tomorrow Documented By: Antonio Steele MD 12/10/24 1131 Signed By: <Electronically signed by MD Antonio Steele> 12/10/24 113 [facility] Work Phone: 1(407) 914-552309-03-2025 [place] [address] Cardiology Progress Note Signed Patient: Esme Steven MR#: [id number] : 1960 Acct:[id number] Age/Sex: 63 / M Adm Date: 5 Loc: Room: [address] [place] [address] Type: ADM IN Attending Dr: Antonio Steele MD Copies to: ~ Date of Service: 12/10/2024 Subjective Interval history: Patient without new complaint. Remain in A-fib. QTc interval still acceptable Exam Physical Exam Vital Signs: Temp Pulse Resp BP Pulse Ox O2 Del Method 97.9 F 91 20 146/84 H 99 Room Air 12/10/24 08:00 12/10/24 08:00 12/10/24 08:00 12/10/24 08:00 12/10/24 08:00 12/10/24 08:00 Eyes General: appearance normal, both eyes and all related structures Pupils: PERRL Neck Neck: normal visual inspection, supple and no lymphadenopathy noted Neck mass: No Thyroid: thyroid normal Carotids: normal carotid upstroke Chest Chest palpation & inspection: normal inspection of the chest Resp Effort & Inspection: normal respiratory effort Auscultation: clear to auscultation bilaterally Cardio Palpation: normal PMI Rhythm: abnormal rhythm irregularly irregular Heart Sounds: S1 normal and S2 normal GI Palpation: soft and no hepatosplenomegaly Percussion: normal to percussion Auscultation: normal bowel sounds Skin General: no rashes or lesions noted and dry skin Neuro General: patient alert, patient awake, patient oriented x3, tone normal and moves all extremities Objective Labs 12/09/24 09:06 Labs: Laboratory Results - last 24 hr 12/10/24 04:00 PT 13.7 H INR 1.2 A&P - Cardiology (1) Persistent atrial fibrillation: Code(s): I48.19 - Other persistent atrial fibrillation Plan Assessment 1. Persistent atrial fibrillation failed to remain in sinus rhythm following recent cardioversion. Admitted for dofetilide load 2. Coronary artery disease previous four-vessel bypass surgery adequately revascularized based on recent heart cath 3. Ischemic cardiomyopathy patient on beta-nimo. I recently gave him a prescription for losartanbut he report could not tolerate due to hypotension 4. Hypertension 5. Hyperlipidemia 6. Status post Watchman device 7. Mildly dilated aortic root at 4.5 cm Plan 1. We discussed treatment option during recent office visit and today. Patientelected to proceed with dofetilide load followed by cardioversion. Risk, benefits alternatives of dofetilide discussed with patient he understood and agreed we will continue to monitor QTc 2. The patient was advised to be also evaluated for ablation and he has an appointment to discuss that 3. Will monitor QTc interval regularly and proceed with cardioversion tomorrow Documented By: Antonio Steele MD 12/10/24 1133 Signed By: 12/10/24 1134 [facility]09-02-2025 History and physical note Author Antonio Steele [facility] Note Date/Time December 09, 2024 12:08pm [facility] [address] [place] [address] Cardiology H&P Signed Patient: Esme Steven MR#: [id number] : 1960 Acct:[id number] Age/Sex: 63 / M Adm Date: 5 Loc: Room: [address] [place] [address] Type: ADM IN Attending Dr: Antonio Steele MD Copies to: Vitaliy Brower,DO Antonio Steele MD~ Date of Service: 12/09/2024 Cardiology HPI History of Present Illness Chief complaint: Elective admission for atrial fibrillation for dofetilide load HPI: Mr. Steven is a 63 year old male with history of atrial fibrillation. Following recent cardioversion he failed to remain on normal sinus rhythm managediscussed with him treatment option and we agreed to admit him electively for dofetilide load. Patient has history of atrial fibrillation, coronary disease, hypertension hyperlipidemia. At the time of evaluation his only complaint is palpitation. Review of Systems Review of Systems All other systems reviewed & are negative unless noted below or in HPI Review of systems: Palpitation and shortness of breath [facility] Medical History (Updated 12/09/24 @ 12:08 by Antonio Steele MD) Persistent atrial fibrillation Chronic HFrEF (heart failure with reduced ejection fraction) Ischemic cardiomyopathy Vitamin D deficiency Macrocytosis without anemia Chest wall contusion Acute bronchitis due to other specified organisms Cough Diverticulitis Atrial fibrillation s/p LAAO procedure - 01/2024, Echo: LVEF 45%, CHARISSA, normal RV size/function - 08/2024, DCCV: 09/2024 Hypothyroid Hypercholesterolemia GENESIS (generalized anxiety disorder) ASHD (arteriosclerotic heart disease) Pseudogout Primary osteoarthritis 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 Primary hypertension Polymyalgia rheumatica FER (obstructive sleep apnea) Mild episode of recurrent major depressive disorder Lumbar spondylosis Inflammatory polyarthritis Hypomagnesemia Gastroesophageal reflux disease with esophagitis without hemorrhage History of left heart catheterization (LHC) x8 ASHD (arteriosclerotic heart disease) CABG x 4 - 2014, PCI/stent (prior to 2014) Bulging lumbar disc Osteoarthritis Gout BPH (benign prostatic hyperplasia) Hyperlipidemia Myocardial infarct x3 Mitral valve disorder Surgical History Presence of Watchman left atrial appendage closure device (~06/2024) H/O colonoscopy (~12/2023) 12/2022 polypectomy (repeat 5 years) S/P total right hip arthroplasty (~02/2023) S/P total left hip arthroplasty History of bilateral knee replacement History of vasectomy History of appendectomy History of lumbar surgery History of cardiac catheterization multiple, LHC: occluded mid LAD, occluded prox LCx, occluded RCA, patent RIVAS to LAD, SVG to diagonal, marginal, RCA - 09/2024 S/P CABG x 4 2014 Family History Mother Heart disease Kidney stones Pacemaker Stroke Father H/O heart artery stent CAD (coronary artery disease) Brother Agent orange exposure Brother Brain aneurysm Social History Smoking Status: Never smoker Substance Use Type: None Substance Abuse Comment: 4-5 beers daily Meds Medications and Allergies Allergies No Known Allergies Allergy (Verified 10/08/24 13:58) Home Medications levothyroxine 150 mcg tablet See Rx Instructions .Route .COMPLEX #90 tabs 03/20/24 [Rx Confirmed 12/09/24] metoprolol succinate 50 mg tablet,extended release 24 hr See Rx Instructions .Route .COMPLEX #90 tabs 03/20/24 [Rx Confirmed 12/09/24] alprazolam 0.5 mg tablet 0.5 mg PO QHS 90 days #90 tabs 07/01/24 [Rx Confirmed 12/09/24] pantoprazole 40 mg tablet,delayed release 40 mg PO DAILY 90 days #90 tabs 07/01/24 [Rx Confirmed 12/09/24] aspirin 81 mg tablet 81 mg PO DAILY 09/08/24 [History Confirmed 12/09/24] atorvastatin 80 mg tablet 80 mg PO QPM 30 days #30 tabs 09/29/24 [Rx Confirmed 12/09/24] isosorbide mononitrate 30 mg tablet,extended release 24 hr 30 mg PO QAM 30 days #30 tabs 09/29/24 [Rx Confirmed 12/09/24] magnesium oxide 400 mg (241.3 mg magnesium) tablet 400 mg PO DAILY 30 days #30 tabs 09/29/24 [Rx Confirmed 12/09/24] nitroglycerin 0.4 mg sublingual tablet 0.4 mg sublingual Q5M PRN Chest Pain 30 days #25 tabs 09/29/24 [Rx Confirmed 12/09/24] allopurinol 100 mg tablet 200 mg PO DAILY 09/30/24 [History Confirmed 10/08/24] spironolactone 25 mg tablet 12.5 mg (1/2 x 25 mg) PO DAILY 30 days #15 tabs 10/01/24 [Rx Confirmed 12/09/24] valacyclovir 500 mg tablet See Rx Instructions .Route .COMPLEX #90 tabs 10/02/24[Rx Confirmed 12/09/24] methylprednisolone 8 mg tablet (Medrol) 8 mg PO DAILY 10/08/24 [History Confirmed 12/09/24] apixaban 5 mg tablet (Eliquis) 5 mg PO BID 12/09/24 [History Confirmed 12/09/24] escitalopram oxalate 20 mg tablet 20 mg PO QHS 12/09/24 [History Confirmed 12/09/24] Exam Physical Exam Vital Signs: Temp Pulse Resp BP Pulse Ox O2 Del Method 98.1 F 99 22 130/92 95 Room Air 12/09/24 09:00 12/09/24 09:00 12/09/24 09:00 12/09/24 09:00 12/09/24 09:00 12/09/24 10:00 Const General: cooperative, comfortable, no acute distress and well developed HEENT Head: atraumatic Mouth: oral mucosae normal Eyes General: appearance normal, both eyes and all related structures Pupils: PERRL Neck Neck: normal visual inspection, supple and no lymphadenopathy noted Neck mass: No Thyroid: thyroid normal Carotids: normal carotid upstroke Chest Chest palpation & inspection: normal inspection of the chest Resp Effort & Inspection: normal respiratory effort Auscultation: clear to auscultation bilaterally Cardio Palpation: normal PMI Rhythm: abnormal rhythm irregularly irregular Heart Sounds: S1 normal and S2 normal GI Palpation: soft and no hepatosplenomegaly Percussion: normal to percussion Auscultation: normal bowel sounds Skin General: no rashes or lesions noted and dry skin Neuro General: patient alert, patient awake, patient oriented x3, tone normal and moves all extremities Extrem General: full ROM, capillary refill normal and no clubbing, cyanosis or edema Other: Multiple superficial bruises Psych Mental Status: mental status grossly normal Results - Cardiology Labs 12/09/24 09:06 Lab results: Comprehensive Metabolic Panel 12/09/24 Range/Units 09:06 Sodium 136 (136-145) mmol/L Potassium 4.0 (3.5-5.1) mmol/L Chloride 105 (98-107) mmol/L Carbon Dioxide 27.0 (21.0-31.0) mmol/L BUN 15 (7-25) mg/dL Creatinine 0.84 (0.70-1.30) mg/dL Glucose 190 H (70-100) mg/dL Calcium 8.7 (8.6-10.3) mg/dL Intake and Output 12/08/24 12/09/24 12/09/24 23:59 07:59 15:59 Other: Weight 102.3 kg Date of Last Bowel Movement 12/09/24 Patient Weight 12/09/24 23:59 Weight 102.3 kg Lab 12/09/24 09:06 PT 14.9 H INR 1.3 EKG Interpretations EKG Attestation EKG: I reviewed this ECG and interpreted as documented below: (Atrial fibrillation with controlled rate. QTc interval is 401 ms mild interventricular conduction delay) A&P - Cardiology (1) Persistent atrial fibrillation: Code(s): I48.19 - Other persistent atrial fibrillation Plan Assessment 1. Persistent atrial fibrillation failed to remain in sinus rhythm following recent cardioversion. 2. Coronary artery disease previous four-vessel bypass surgery adequately revascularized based on recent heart cath 3. Ischemic cardiomyopathy patient on beta-nimo. I recently gave him a prescription for losartan but he report could not tolerate due to hypotension 4. Hypertension 5. Hyperlipidemia 6. Status post Watchman device 7. Mildly dilated aortic root at 4.5 cm Plan 1. We discussed treatment option during recent office visit and today. Patientelected to proceed with dofetilide load followed by cardioversion. Risk, benefits alternatives of dofetilide discussed with patient he understood and agreed 2. The patient was advised to be also evaluated for ablation and he has an appointment to discuss that 3. Will monitor QTc interval regularly and proceed with cardioversion in 48 hours if remain in atrial fibrillation Documented By: Antonio Steele MD 12/09/24 1158 Signed By: <Electronically signed by MD Antonio Steele> 12/09/24 1208 [facility] Work Phone: 1(189) 831-913009-02-2025 [place] [address] Cardiology H&P Signed Patient: Esme Steven MR#: [id number] : 1960 Acct:[id number] Age/Sex: 63 / M Adm Date: 5 Loc: Room: [address] [place] [address] Type: ADM IN Attending Dr: Antonio Steele MD Copies to: Vitaliy Brower,DO Antonio Steele MD~ Date of Service: 12/09/2024 Cardiology HPI History of Present Illness Chief complaint: Elective admission for atrial fibrillation for dofetilide load HPI: Mr. Steven is a 63 year old male with history of atrial fibrillation. Following recent cardioversion he failed to remain on normal sinus rhythm managediscussed with him treatment option and we agreed to admit him electively for dofetilide load. Patient has history of atrial fibrillation, coronary disease, hypertension hyperlipidemia. At the time of evaluation his only complaint is palpitation. Review of Systems Review of Systems All other systems reviewed & are negative unless noted below or in HPI Review of systems: Palpitation and shortness of breath [facility] Medical History (Updated 12/09/24 @ 12:08 by Antonio Steele MD) Persistent atrial fibrillation Chronic HFrEF (heart failure with reduced ejection fraction) Ischemic cardiomyopathy Vitamin D deficiency Macrocytosis without anemia Chest wall contusion Acute bronchitis due to other specified organisms Cough Diverticulitis Atrial fibrillation s/p LAAO procedure - 01/2024, Echo: LVEF 45%, CHARISSA, normal RV size/function - 08/2024, DCCV: 09/2024 Hypothyroid Hypercholesterolemia GENESIS (generalized anxiety disorder) ASHD (arteriosclerotic heart disease) Pseudogout Primary osteoarthritis 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 Primary hypertension Polymyalgia rheumatica FER (obstructive sleep apnea) Mild episode of recurrent major depressive disorder Lumbar spondylosis Inflammatory polyarthritis Hypomagnesemia Gastroesophageal reflux disease with esophagitis without hemorrhage History of left heart catheterization (LHC) x8 ASHD (arteriosclerotic heart disease) CABG x 4 - 2015, PCI/stent (prior to 2014) Bulging lumbar disc Osteoarthritis Gout BPH (benign prostatic hyperplasia) Hyperlipidemia Myocardial infarct x3 Mitral valve disorder Surgical History Presence of Watchman left atrial appendage closure device (~06/2024) H/O colonoscopy (~12/2023) 12/2022 polypectomy (repeat 5 years) S/P total right hip arthroplasty (~02/2023) S/P total left hip arthroplasty History of bilateral knee replacement History of vasectomy History of appendectomy History of lumbar surgery History of cardiac catheterization multiple, LHC: occluded mid LAD, occluded prox LCx, occluded RCA, patent RIVAS to LAD, SVG to diagonal, marginal, RCA - 09/2024 S/P CABG x 4 2014 Family History Mother Heart disease Kidney stones Pacemaker Stroke Father H/O heart artery stent CAD (coronary artery disease) Brother Agent orange exposure Brother Brain aneurysm Social History Smoking Status: Never smoker Substance Use Type: None Substance Abuse Comment: 4-5 beers daily Meds Medications and Allergies Allergies No Known Allergies Allergy (Verified 10/08/24 13:58) Home Medications levothyroxine 150 mcg tablet See Rx Instructions .Route .COMPLEX #90 tabs 03/20/24 [Rx Confirmed 12/09/24] metoprolol succinate 50 mg tablet,extended release 24 hr See Rx Instructions .Route .COMPLEX #90 tabs 03/20/24 [Rx Confirmed 12/09/24] alprazolam 0.5 mg tablet 0.5 mg PO QHS 90 days #90 tabs 07/01/24 [Rx Confirmed 12/09/24] pantoprazole 40 mg tablet,delayed release 40 mg PO DAILY 90 days #90 tabs 07/01/24 [Rx Confirmed 12/09/24] aspirin 81 mg tablet 81 mg PO DAILY 09/08/24 [History Confirmed 12/09/24] atorvastatin 80 mg tablet 80 mg PO QPM 30 days #30 tabs 09/29/24 [Rx Confirmed 12/09/24] isosorbide mononitrate 30 mg tablet,extended release 24 hr 30 mg PO QAM 30 days #30 tabs 09/29/24 [Rx Confirmed 12/09/24] magnesium oxide 400 mg (241.3 mg magnesium) tablet 400 mg PO DAILY 30 days #30 tabs 09/29/24 [Rx Confirmed 12/09/24] nitroglycerin 0.4 mg sublingual tablet 0.4 mg sublingual Q5M PRN Chest Pain 30 days #25 tabs 09/29/24 [Rx Confirmed 12/09/24] allopurinol 100 mg tablet 200 mg PO DAILY 09/30/24 [History Confirmed 10/08/24] spironolactone 25 mg tablet 12.5 mg (1/2 x 25 mg) PO DAILY 30 days #15 tabs 10/01/24 [Rx Confirmed 12/09/24] valacyclovir 500 mg tablet See Rx Instructions .Route .COMPLEX #90 tabs 10/02/24[Rx Confirmed 12/09/24] methylprednisolone 8 mg tablet (Medrol) 8 mg PO DAILY 10/08/24 [History Confirmed 12/09/24] apixaban 5 mg tablet (Eliquis) 5 mg PO BID 12/09/24 [History Confirmed 12/09/24] escitalopram oxalate 20 mg tablet 20 mg PO QHS 12/09/24 [History Confirmed 12/09/24] Exam Physical Exam Vital Signs: Temp Pulse Resp BP Pulse Ox O2 Del Method 98.1 F 99 22 130/92 95 Room Air 12/09/24 09:00 12/09/24 09:00 12/09/24 09:00 12/09/24 09:00 12/09/24 09:00 12/09/24 10:00 Const General: cooperative, comfortable, no acute distress and well developed HEENT Head: atraumatic Mouth: oral mucosae normal Eyes General: appearance normal, both eyes and all related structures Pupils: PERRL Neck Neck: normal visual inspection, supple and no lymphadenopathy noted Neck mass: No Thyroid: thyroid normal Carotids: normal carotid upstroke Chest Chest palpation & inspection: normal inspection of the chest Resp Effort & Inspection: normal respiratory effort Auscultation: clear to auscultation bilaterally Cardio Palpation: normal PMI Rhythm: abnormal rhythm irregularly irregular Heart Sounds: S1 normal and S2 normal GI Palpation: soft and no hepatosplenomegaly Percussion: normal to percussion Auscultation: normal bowel sounds Skin General: no rashes or lesions noted and dry skin Neuro General: patient alert, patient awake, patient oriented x3, tone normal and moves all extremities Extrem General: full ROM, capillary refill normal and no clubbing, cyanosis or edema Other: Multiple superficial bruises Psych Mental Status: mental status grossly normal Results - Cardiology Labs 12/09/24 09:06 Lab results: Comprehensive Metabolic Panel 12/09/24 Range/Units 09:06 Sodium 136 (136-145) mmol/L Potassium 4.0 (3.5-5.1) mmol/L Chloride 105 (98-107) mmol/L Carbon Dioxide 27.0 (21.0-31.0) mmol/L BUN 15 (7-25) mg/dL Creatinine 0.84 (0.70-1.30) mg/dL Glucose 190 H (70-100) mg/dL Calcium 8.7 (8.6-10.3) mg/dL Intake and Output 12/08/24 12/09/24 12/09/24 23:59 07:59 15:59 Other: Weight 102.3 kg Date of Last Bowel Movement 12/09/24 Patient Weight 12/09/24 23:59 Weight 102.3 kg Lab 12/09/24 09:06 PT 14.9 H INR 1.3 EKG Interpretations EKG Attestation EKG: I reviewed this ECG and interpreted as documented below: (Atrial fibrillation withcontrolled rate. QTc interval is 401 ms mild interventricular conduction delay) A&P - Cardiology (1) Persistent atrial fibrillation: Code(s): I48.19 - Other persistent atrial fibrillation Plan Assessment 1. Persistent atrial fibrillation failed to remain in sinus rhythm following recent cardioversion. 2. Coronary artery disease previous four-vessel bypass surgery adequately revascularized based on recent heart cath 3. Ischemic cardiomyopathy patient on beta-nimo. I recently gave him a prescription for losartanbut he report could not tolerate due to hypotension 4. Hypertension 5. Hyperlipidemia 6. Status post Watchman device 7. Mildly dilated aortic root at 4.5 cm Plan 1. We discussed treatment option during recent office visit and today. Patientelected to proceed with dofetilide load followed by cardioversion. Risk, benefits alternatives of dofetilide discussed with patient he understood and agreed 2. The patient was advised to be also evaluated for ablation and he has an appointment to discuss that 3. Will monitor QTc interval regularly and proceed with cardioversion in 48 hours if remain in atrial fibrillation Documented By: Antonio Steele MD 12/09/24 1158 Signed By: 12/09/24 1208 [facility]08-13-2025 History of Present illness Narrative * Antonio Steele MD - 11/19/2024 12:50 PM EDT Chief Complaint Patient presents with Follow-up 3 months dcc Subjective Esme Steven is a 63 y.o. male HPI Patient here for follow-up continue management for atrial fibrillation coronary disease and following recent hospitalization. Initially presented with chest pain and cardiac catheterization showed that he is adequately revascularized. Patient was noted to be back in atrial fibrillation. He has Watchman device and has been on aspirin therapy. He feels fatigue and tired. He was readmitted for hypotension as he did not tolerate valsartan. Today in the office he describes symptom fatigue and tiredness and he is in atrial fibrillation. Assessment 1. Persistent atrial fibrillation status post recent recurrence. Failed to remain in sinus rhythm following plain cardioversion clearly he will need antiarrhythmic versus ablation this is symptomatic 2. Coronary artery disease status post four-vessel bypass surgery with RIVAS to the LAD, SVG to diagonal, SVG to OM and SVG to RCA. Recent heart cath showed that he is adequately revascularized with patent for graft 3. Hypertension controlled he is on metoprolol and Aldactone 4. Hyperlipidemia controlled on atorvastatin maximum dose 80 mg 5. LV systolic function with LVEF around 35% did not tolerate higher dose of 6. Sleep apnea on CPAP 7. Hypothyroidism on replacement therapy that the care of his family physician 8. Obesity with BMI of 32 9. Status post Watchman device. Currently on [...] of recurrence following lengthy discussion the patient agreed for antiarrhythmic. We discussed dofetilide versus sotalol. Considering he had LV systolic dysfunction and mild heart failure he elected for dofetilide. In addition we discussed ablation and I suggested to referral for evaluation patient understood and agreed 2. I advised the patient to go back on Eliquis until cardioversion is done 3. Continue aggressive approach risk factor modification with exercise, losing weight e 4. Encouraged him to be compliant with his CPAP 5. I encouraged him to lose weight and exercise 6. I will see him back after cardioversion is done 7. We discussed optimize treatment for LV systolic dysfunction I suggested trial of low-dose Auinmg60 mg daily. I advised him to monitor his blood pressure and notify me if it becomes low. We discussed adding SGLT inhibitors patient concerned about the cost Review of Systems All other systems reviewed and are negative. Vitals: 11/19/24 1244 BP: 110/80 BP Location: Left arm Patient Position: Sitting Pulse: 98 Weight: 103 kg (228 lb) Height: 1.778 m (5' 10 ) Objective Physical Exam Constitutional: Appearance: Normal appearance. HENT: Nose: Nose normal. Neck: Vascular: No carotid bruit. Cardiovascular: Rate and Rhythm: Normal rate. Rhythm irregularly irregular. Pulses: Normal pulses. Heart sounds: Normal [...] Daily ALPRAZolam (XANAX) 0.5 mg, Nightly PRN apixaban (ELIQUIS) 5 mg, oral, 2 times daily aspirin 81 mg, Daily atorvastatin (LIPITOR) 80 mg, Daily escitalopram (Lexapro) 20 mg tablet 1 tablet, Daily levothyroxine (Synthroid, Levoxyl) 150 mcg tablet 1 tablet, Daily before breakfast methylPREDNISolone (MEDROL) 8 mg, Daily metoprolol succinate XL (Toprol-XL) 50 mg 24 hr tablet 1 tablet, Daily spironolacton-hydrochlorothiaz (Aldactazide) 25-25 mg tablet 1 tablet, Daily before breakfast valACYclovir (Valtrex) 500 mg tablet 1 tablet, Daily valsartan (DIOVAN) 40 mg, oral, Daily Assessment/Plan 1. Persistent atrial fibrillation (Multi) ECG 12 Lead Referral to Cardiac Electrophysiology Cardioversion External Antiarrythmic Initiation Monitoring Appointment Request apixaban (Eliquis) 5 mg tablet 2. Multi-vessel coronary artery stenosis Follow Up In Cardiology Follow Up In Cardiology Basic Metabolic Panel 3. Status post aorto-coronary artery bypass graft 4. Presence of Watchman left atrial appendage closure device 5. Mixed hyperlipidemia 6. Dilated aortic root 7. Cardiomyopathy, ischemic valsartan (Diovan) 40 mg tablet Basic Metabolic Panel 8. Never smoked cigarettes 9. BMI 32.0-32.9,adult Scribe Attestation By signing my name below, Jasmine Boothe LPN, Scribe attest that this documentation has been [...] exam, discussion and plan. [facility] Work Phone: [phone] 228-597508-13-2025 Instructions* Patient Instructions* Jasmine Coello LPN - 11/19/2024 12:50 PM EDT Please bring all medicines, vitamins, and herbal supplements with you when you come to the office. Prescriptions will not be filled unless you are compliant with your follow up appointments or have a follow up appointment scheduled as per instruction of your physician. Refills should be requested at the time of your visit. BMI was above normal measurement. Current weight: 103 kg (228 lb) Weight change since last visit (-) denotes wt loss -4 lbs Weight loss needed to achieve BMI 25: 54.1 Lbs Weight loss needed to achieve BMI 30: 19.4 Lbs Provided instructions on dietary changes. Valsartan 40 mg daily Referral for ablation Segunsyn 250 mcg bid drug load for 2 days Day 3 cardioversion( in 3 weeks) documented in this [facility] Work Phone: [phone] 605-283406-25-2025 Consult note Author Lala Arce [facility] Note Date/Time October 01, 2024 11:[address] [facility] [address] [place] [address] Cardiology Consult Note Signed Patient: Esme Steven MR#: [id number] : 1960 Acct:[id number] Age/Sex: 63 / M Adm Date: 5 Loc: Room: [address] [place] [address] Type: ADM INOo Attending Dr: Leidy Nuno DO Copies to: DO Lala Hannah MD, [facility] Leidy Nuno DO~ Cardiology HPI History of Present Illness Consult Date: 10/01/24 Reason for Consult: Hypotension HPI: Mr. Steven is a 63 year old male who is being seen at request of the hospitalist for hypotension. The patient was discharged 48 hours from [facility] after having admission for chest pain leading to diagnostic heart catheterization which revealed patent for coronary bypass surgery grafts including RIVAS graft to the LAD, saphenous vein graft to diagonal, saphenous vein graft to obtuse marginal, saphenous vein graft to the RCA. His [place] coronary arteries were occluded. Ejection fraction measured 35%. The patient has persistent atrial fibrillation, last cardioversion was September 2024 and has not been anticoagulation since he has a watchman and has not been on antiarrhythmic therapy. The patient was discharged home on valsartan 40mg daily in addition to spironolactone/hydrocodonethiazide 25/25 mg daily, Toprol-XL 50 mg daily in addition to 80 mg daily of atorvastatin and a baby aspirin. The patient to obtain at home and took his medication became extremelyfatigued dizzy lightheaded and his systolic blood pressure was down to 60 mmHg. He developed some confusion and inability to concentrate. His blood by his family to the emergency department where he was found to have severe hypotensionand received intravenous fluid resuscitation. Apparently the patient had previous similar experience of hypotension following taking valsartan. The patient when interviewed this morning is back to his baseline, systolic pressures 100 mmHg. His medications obviously were held since admission. The patient is ready for discharge. All what is needed is ensuring that he is in the proper medications at least for the short-term that he can tolerate. I willcertainly not use ARB or thiazide diuretics for now. He can be discharged home on spironolactone 12.5 mg daily in addition to Toprol-XL 50 mg daily and his baby aspirin and atorvastatin. His colchicine use should be used on as-needed basis only. The patient will be considered for ablation for atrial fibrillationas an outpatient. He would benefit from SGLT2 inhibitors that will be directed by his primary rn testing. Review of Systems Review of Systems Review of systems: 10 point review of system outside of what is covered above in HPI was unremarkable [facility] Medical History (Updated 10/01/24 @ 11:35 by Lala Arce MD) Vitamin D deficiency Macrocytosis without anemia Chest wall contusion Acute bronchitis due to other specified organisms Cough Diverticulitis Atrial fibrillation s/p LAAO procedure - 01/2024, Echo: LVEF 45%, CHARISSA, normal RV size/function - 08/2024, DCCV: 09/2024 Hypothyroid Hypercholesterolemia GENESIS (generalized anxiety disorder) ASHD (arteriosclerotic heart disease) Pseudogout Primary osteoarthritis 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 Primary hypertension Polymyalgia rheumatica FER (obstructive sleep apnea) Mild episode of recurrent major depressive disorder Lumbar spondylosis Inflammatory polyarthritis Hypomagnesemia Gastroesophageal reflux disease with esophagitis without hemorrhage History of left heart catheterization (LHC) x8 ASHD (arteriosclerotic heart disease) CABG x 4 - 2014, PCI/stent (prior to 2014) Bulging lumbar disc Osteoarthritis Gout BPH (benign prostatic hyperplasia) Hyperlipidemia Myocardial infarct x3 Mitral valve disorder Surgical History (Updated 09/30/24 @ 20:16 by Vitaliy Brower DO) Presence of Watchman left atrial appendage closure device (~06/2024) H/O colonoscopy (~12/2023) 12/2022 polypectomy (repeat 5 years) S/P total right hip arthroplasty (~02/2023) S/P total left hip arthroplasty History of bilateral knee replacement History of vasectomy History of appendectomy History of lumbar surgery History of cardiac catheterization multiple, LHC: occluded mid LAD, occluded prox LCx, occluded RCA, patent RIVAS to LAD, SVT to diagonal, marginal, RCA - 09/2024 S/P CABG x 4 2014 H/O heart artery stent prior to 2014 Family History Mother Heart disease Kidney stones Pacemaker Stroke Father H/O heart artery stent CAD (coronary artery disease) Brother Agent orange exposure Brother Brain aneurysm Social History Smoking Status: Never smoker Substance Use Type: Alcohol Substance Abuse Comment: 4-5 beers daily Meds Medications and Allergies Allergies No Known Allergies Allergy (Verified 09/30/24 14:24) Home Medications valacyclovir 500 mg tablet See Rx Instructions .Route .COMPLEX #90 tabs 12/24/23[Rx Confirmed 09/30/24] levothyroxine 150 mcg tablet See Rx Instructions .Route .COMPLEX #90 tabs 03/20/24 [Rx Confirmed 09/30/24] metoprolol succinate 50 mg tablet,extended release 24 hr See Rx Instructions .Route .COMPLEX #90 tabs 03/20/24 [Rx Confirmed 09/30/24] alprazolam 0.5 mg tablet 0.5 mg PO QHS 90 days #90 tabs 07/01/24 [Rx Confirmed 09/30/24] pantoprazole 40 mg tablet,delayed release 40 mg PO DAILY 90 days #90 tabs 07/01/24 [Rx Confirmed 09/30/24] aspirin 81 mg tablet 81 mg PO DAILY 09/08/24 [History Confirmed 09/30/24] spironolactone 25 mg-hydrochlorothiazide 25 mg tablet 1 tab PO DAILY 09/08/24 [History Confirmed 09/30/24] atorvastatin 80 mg tablet 80 mg PO QPM 30 days #30 tabs 09/29/24 [Rx Confirmed 09/30/24] isosorbide mononitrate 30 mg tablet,extended release 24 hr 30 mg PO QAM 30 days #30 tabs 09/29/24 [Rx Confirmed 09/30/24] magnesium oxide 400 mg (241.3 mg magnesium) tablet 400 mg PO DAILY 30 days #30 tabs 09/29/24 [Rx Confirmed 09/30/24] nitroglycerin 0.4 mg sublingual tablet 0.4 mg sublingual Q5M PRN Chest Pain 30 days #25 tabs 09/29/24 [Rx Confirmed 09/30/24] valsartan 40 mg tablet 40 mg PO DAILY 30 days #30 tabs 09/29/24 [Rx Confirmed 09/30/24] allopurinol 100 mg tablet 200 mg PO DAILY 09/30/24 [History Confirmed 09/30/24] dapagliflozin propanediol 10 mg tablet 10 mg PO DAILY 30 days #30 tabs 10/01/24 [Rx] spironolactone 25 mg tablet 12.5 mg (1/2 x 25 mg) PO DAILY 30 days #15 tabs 10/01/24 [Rx] Exam Physical Exam Vital Signs: Temp Pulse Resp BP Pulse Ox O2 Del Method 97.9 F 97 18 106/72 95 Room Air 10/01/24 08:25 10/01/24 11:14 10/01/24 11:14 10/01/24 11:14 10/01/24 11:14 10/01/24 11:14 Const General: cooperative, healthy appearing, comfortable and no acute distress Nutritional Appearance: overweight Orientation: alert, awake and oriented x3 HEENT Head: normal to inspection, normocephalic and atraumatic Ears: hearing grossly normal bilaterally Nose: external nose normal Face and sinus: normal facial exam Eyes Conjunctivae: conjunctivae normal Pupils: PERRL Neck Neck: trachea midline and supple Neck mass: No Thyroid: thyroid normal Carotids: normal carotid upstroke Resp Effort & Inspection: normal respiratory effort Auscultation: clear to auscultation bilaterally Cardio Jugular venous pressure: no JVD Palpation: normal PMI Rate: regular rate Rhythm: abnormal rhythm irregularly irregular Heart Sounds: S1 normal and S2 normal GI Inspection: normal to inspection Palpation: soft and no hepatosplenomegaly Auscultation: normal bowel sounds Extrem General: no clubbing, cyanosis or edema Results - Cardiology Labs 10/01/24 06:50 10/01/24 06:50 Lab results: Cardiac Enzymes 09/30/24 Range/Units 14:21 Total Creatine Kinase 18 L (30-223) U/L B-Natriuretic Peptide 308.0 H (5-100) pg/mL CBC 09/30/24 10/01/24 Range/Units 14:21 06:50 RBC 5.01 4.32 (3.90-5.60) x10E6/uL Hgb 17.3 H 15.0 (13.0-17.0) g/dL Hct 51.1 H 44.0 (38.8-50.0) % Plt Count 218 161 D (150-450) x10E3/uL Neut # (Auto) 14.2 H 10.2 H (1.8-7.7) x10E3/uL Lymph # (Auto) 1.9 2.2 (1.00-4.8) x10E3/uL [place] # (Auto) 0.7 1.1 H (0.0-0.8) x10E3/uL Eos # (Auto) 0.0 0.1 (0.0-0.45) x10E3/uL Baso # (Auto) 0.1 0.1 (0.0-0.2) x10E3/uL Comprehensive Metabolic Panel 09/30/24 10/01/24 Range/Units 14:21 06:50 Sodium 135 L 135 L (136-145) mmol/L Potassium 4.0 3.6 (3.5-5.1) mmol/L Chloride 101 104 (98-107) mmol/L Carbon Dioxide 24.7 25.4 (21.0-31.0) mmol/L BUN 17 17 (7-25) mg/dL Creatinine 1.32 H D 0.79 D (0.70-1.30) mg/dL Glucose 171 H 120 H (70-100) mg/dL Calcium 9.3 8.4 L (8.6-10.3) mg/dL Intake and Output 09/30/24 10/01/24 10/01/24 23:59 07:59 15:59 Intake Total 500 / 1500 250 / 250 Balance 500 / 1500 250 / 250 Intake: IV 500 / 1500 Sodium Chloride 0.9% 500 ml 500 500 / 500 ml @ 999 mls/hr IV .Q31M ONE Rx#:[id number] Oral 250 / 250 Other: # Unmeasured Voids 3 Weight 93.6 kg 93.5 kg Patient Weight 10/01/24 23:59 Weight 93.5 kg Lab 09/30/24 14:21 PT 11.8 INR 1.0 EKG Interpretations EKG Attestation EKG: I reviewed this ECG and interpreted as documented below: (ECG revealed atrial fibrillation, old inferior myocardial infarction, diffuse repolarization normalities, IVCD) A&P - Cardiology (1) Acute hypotension: Assessment/Problem Details: Due to medications, resolved Plan: Avoid aggressive hypertension medications regimen, discontinue ARB and hydrochlorothiazide, maintain adequate hydration Code(s): I95.9 - Hypotension, unspecified (2) Pre-syncope: Assessment/Problem Details: Due to severe hypotension, resolved, CT scan of the head was unremarkable Plan: Maintain normal blood pressure readings Code(s): R55 - Syncope and collapse (3) Presence of Watchman left atrial appendage closure device: Assessment/Problem Details: Placed in 2023 at [facility] Plan: Continue to be monitored, continue baby aspirin Code(s): Z95.818 - Presence of other cardiac implants and grafts (4) Hypercholesterolemia: Plan: Continue high intensity statin in addition to low-fat diet and achieving ideal body weight Code(s): E78.00 - Pure hypercholesterolemia, unspecified (5) Primary hypertension: Assessment/Problem Details: Patient presented with severe hypotension Plan: Due to severe LV systolic dysfunction it is unlikely that the patient will need aggressive medical regimen for hypertension beyond heart failure therapy. Will not resume ARB but continue metoprolol succinate and spironolactone Code(s): I10 - Essential (primary) hypertension (6) ASHD (arteriosclerotic heart disease): Assessment/Problem Details: Patient has severe three-vessel coronary heart disease with four-vessel bypass surgery, all bypasses are open based on cardiac catheterization 48 hours ago Plan: Continue aspirin and high intensity statin Code(s): I25.10 - Atherosclerotic heart disease of [place] coronary artery without angina pectoris (7) Persistent atrial fibrillation: Assessment/Problem Details: Not very symptomatic but in the presence of severe LV systolic dysfunction [facility] of normal sinus rhythm is desirable Plan: Consideration for ablation for atrial fibrillation Code(s): I48.19 - Other persistent atrial fibrillation (8) Ischemic cardiomyopathy: Assessment/Problem Details: Stage C functional class II NYHA Plan: Due to hypotension in relation to ARB we will not resume it at this time. He was continued on metoprolol succinate and spironolactone 12.5 mg daily, consideration for SGLT2 inhibitors Code(s): I25.5 - Ischemic cardiomyopathy Documented By: Lala Arce MD, POLO 5 1127 Signed By: <Electronically signed by MD POLO Arce> 10/01/24 1138 [facility] Work Phone: [phone]) 368-867606-25-2025 [place] [address] Hospitalist H&P Signed Patient: Esme Steven MR#: [id number] : 1960 Acct:[id number] Age/Sex: 63 / M Adm Date: 5 Loc: Room: [address] [place] [address] Type: ADM INOo Attending Dr: Leidy Nuno DO Copies to: DO Ada Hannah, STEPHEN Nuno DO~ HPI DATE OF EXAMINATION: 09/30/24 CHIEF COMPLAINT: Presyncope HISTORY OF PRESENT ILLNESS: Mr Esme Steven is a 63-year-old male with a past medical history of coronary artery disease with previous 4 vessel bypass surgery who underwent leftheart catheterization by Dr. Steele yesterday due to unstable angina with significant three-vessel coronary artery disease. He was discharged on isosorbide 30 mg daily and valsartan 40 mg daily, which he states were a new medications. He reports taking all his medications as prescribed and an hour later he felt lightheaded, blurry vision and thought he was going to pass out. According to his at bedside, she states that he has reactedin a similar manner after taking isosorbide in the past. Upon arrival, blood pressure was inthe 60sover the 40s. After receiving 1.5 L bolus has improved to 90/54 and he reports feeling better. He denies dizziness, lightheaded. Denies chest pain, shortness of breath or palpitations. Denies abdominal pain, nausea vomiting or diarrhea. He denies having any urinary symptoms, afebrile. Upon arrival to the ER, head CT obtained, results pending. CXR did not show anyacute cardiopulmonary findings. Creatinine 1.32. WBC 16.9. He was administered 1.5 L of normal saline. He will be admitted by the hospitalist team for further evaluation and management. Review of Systems Review of Systems Review of systems: A 10 point review of systems obtained, negative unless noted in the [facility] Source: Old Records Reviewed Medical History Vitamin D deficiency Macrocytosis without anemia Chest wall contusion Acute bronchitis due to other specified organisms Cough Diverticulitis Atrial fibrillation s/p LAAO procedure - 01/2024, Echo: LVEF 45%, CHARISSA, normal RV size/function - 08/2024, DCCV: 09/2024 Hypothyroid Hypercholesterolemia GENESIS (generalized anxiety disorder) ASHD (arteriosclerotic heart disease) Pseudogout Primary osteoarthritis 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 Primary hypertension Polymyalgia rheumatica FER (obstructive sleep apnea) Mild episode of recurrent major depressive disorder Lumbar spondylosis Inflammatory polyarthritis Hypomagnesemia Gastroesophageal reflux disease with esophagitis without hemorrhage History of left heart catheterization (LHC) x8 ASHD (arteriosclerotic heart disease) CABG x 4 - 2014, PCI/stent (prior to 2014) Bulging lumbar disc Osteoarthritis Gout BPH (benign prostatic hyperplasia) Hyperlipidemia Myocardial infarct x3 Mitral valve disorder Surgical History Presence of Watchman left atrial appendage closure device (~06/2024) H/O colonoscopy (~12/2023) 12/2022 polypectomy (repeat 5 years) S/P total right hip arthroplasty (~02/2023) S/P total left hip arthroplasty History of bilateral knee replacement History of vasectomy History of appendectomy History of lumbar surgery History of cardiac catheterization multiple S/P CABG x 4 2014 H/O heart artery stent prior to 2014 Family History Mother Heart disease Kidney stones Pacemaker Stroke Father H/O heart artery stent CAD (coronary artery disease) Brother Agent orange exposure Brother Brain aneurysm Social History Smoking Status: Former smoker Substance Use Type: Alcohol Substance Abuse Comment: 2-4 beers daily Meds Medications and Allergies Allergies No Known Allergies Allergy (Verified 09/30/24 14:24) Home Medications valacyclovir 500 mg tablet See Rx Instructions .Route .COMPLEX #90 tabs 12/24/23[Rx Confirmed 09/30/24] levothyroxine 150 mcg tablet See Rx Instructions .Route .COMPLEX #90 tabs 03/20/24 [Rx Confirmed 09/30/24] metoprolol succinate 50 mg tablet,extended release 24 hr See Rx Instructions .Route .COMPLEX #90 tabs 03/20/24 [Rx Confirmed 09/30/24] alprazolam 0.5 mg tablet 0.5 mg PO QHS 90 days #90 tabs 07/01/24 [Rx Confirmed 09/30/24] pantoprazole 40 mg tablet,delayed release 40 mg PO DAILY 90 days #90 tabs 07/01/24 [Rx Confirmed 09/30/24] aspirin 81 mg tablet 81 mg PO DAILY 09/08/24 [History Confirmed 09/30/24] spironolactone 25 mg-hydrochlorothiazide 25 mg tablet 1 tab PO DAILY 09/08/24 [History Confirmed 09/30/24] atorvastatin 80 mg tablet 80 mg PO QPM 30 days #30 tabs 09/29/24 [Rx Confirmed 09/30/24] isosorbide mononitrate 30 mg tablet,extended release 24 hr 30 mg PO QAM 30 days #30 tabs 09/29/24 [Rx Confirmed 09/30/24] magnesium oxide 400 mg (241.3 mg magnesium) tablet 400 mg PO DAILY 30 days #30 tabs 09/29/24 [Rx Confirmed 09/30/24] nitroglycerin 0.4 mg sublingual tablet 0.4 mg sublingual Q5M PRN Chest Pain 30 days #25 tabs 09/29/24 [Rx Confirmed 09/30/24] valsartan 40 mg tablet 40 mg PO DAILY 30 days #30 tabs 09/29/24 [Rx Confirmed 09/30/24] allopurinol 100 mg tablet 200 mg PO DAILY 09/30/24 [History Confirmed 09/30/24] Exam Physical Exam Vital Signs: Temp Pulse Resp BP Pulse Ox O2 Del Method 97.9 F 95 18 90/54 L 96 Room Air 09/30/24 14:11 09/30/24 15:45 09/30/24 15:45 09/30/24 15:45 09/30/24 15:45 09/30/24 15:45 Narrative: CONST-alert, awake, cooperative HEAD - Normocephalic and atraumatic EENT?Sclera nonicteric and conjunctive are nonerythemic, moist oral mucosa, pharynx clear NECK?Supple, no cervical lymphadenopathy CARDIAC?normal rate, regular rhythm, normal S1 & S2. PULM?diminished without wheeze or rhonchi, RA, no accessory muscle use or cough noted ABD ? Soft. Bowel sounds are normal. No distention No tenderness EXTREM?no edema BLE calves nontender SKIN? W/D good turgor MS- MAEX4 spontaneously with equal with equal strength NEURO? A&Ox3 speech clear and tongue midline, equal facial symmetry no focal motor deficits PSYCH?Mood, affect and behavior appropriate Results - Hospitalist H&P Lab Results Labs: Laboratory Last Values Corrected WBC 16.9 X10E3/uL (4.1-10.5) H 09/30/24 14:21 Uncorrected WBC Count 16.9 x10E3/uL (4.1-10.5) H 09/30/24 14:21 RBC 5.01 x10E6/uL (3.90-5.60) 09/30/24 14:21 Hgb 17.3 g/dL (13.0-17.0) H 09/30/24 14:21 Hct 51.1 % (38.8-50.0) H 09/30/24 14:21 MCV 101.9 fl (83.5-101) H 09/30/24 14:21 MCH 34.4 pg (27.5-35.2) 09/30/24 14:21 MCHC 33.8 g/dL (32.5-35.6) 09/30/24 14:21 RDW 14.0 % (12.0-14.8) 09/30/24 14:21 Plt Count 218 x10E3/uL (150-450) 09/30/24 14:21 MPV 9.8 fl (6.6-10.1) 09/30/24 14:21 Neut % (Auto) 83.8 % (.) 09/30/24 14:21 Lymph % (Auto) 11.5 % (.) 09/30/24 14:21 [place] % (Auto) 3.9 % (.) 09/30/24 14:21 Eos % (Auto) 0.2 % (.) 09/30/24 14:21 Baso % (Auto) 0.6 % (.) 09/30/24 14:21 Nucleat RBC Rel Count 0.1 /100 WBC (0-0.5) 09/30/24 14:21 Neut # (Auto) 14.2 x10E3/uL (1.8-7.7) H 09/30/24 14:21 Lymph # (Auto) 1.9 x10E3/uL (1.00-4.8) 09/30/24 14:21 [place] # (Auto) 0.7 x10E3/uL (0.0-0.8) 09/30/24 14:21 Eos # (Auto) 0.0 x10E3/uL (0.0-0.45) 09/30/24 14:21 Baso # (Auto) 0.1 x10E3/uL (0.0-0.2) 09/30/24 14:21 Monocyte Dist Width 22.40 % (0.00-20.00) H 09/30/24 14:21 PT 11.8 Seconds (9.0-12.9) 09/30/24 14:21 INR 1.0 09/30/24 14:21 PHA Creatinine Clear 66.94 09/30/24 14:21 Sodium 135 mmol/L (136-145) L 09/30/24 14:21 Potassium 4.0 mmol/L (3.5-5.1) 09/30/24 14:21 Chloride 101 mmol/L (98-107) 09/30/24 14:21 Carbon Dioxide 24.7 mmol/L (21.0-31.0) 09/30/24 14:21 Anion Gap 13.3 mEq/L (6.0-15.0) 09/30/24 14:21 BUN 17 mg/dL (7-25) 09/30/24 14:21 Creatinine 1.32 mg/dL (0.70-1.30) H D 09/30/24 14:21 Est GFR (CKD-EPI) > 60.0 mL/Min 09/30/24 14:21 Glucose 171 mg/dL (70-100) H 09/30/24 14:21 Calcium 9.3 mg/dL (8.6-10.3) 09/30/24 14:21 Total Creatine Kinase 18 U/L (30-223) L 09/30/24 14:21 Troponin I High Sens 12 ng/L (0-20) 09/30/24 14:21 B-Natriuretic Peptide 308.0 pg/mL (5-100) H 09/30/24 14:21 Assessment & Plan Assessment/Plan (1) MIESHA (acute kidney injury): (2) Blurred vision, bilateral: (3) Acute hypotension: Plan Presyncope Symptomatic hypotension CAD status post left heart catheterization 09/29 Presented with complaints of sudden onset of lightheadedness, blurry vision and almost passing out.He was noted to have significant hypotension with blood pressure in the 60s/40s. He reports having a similar incident of presyncope after taking isosorbide in the past. * Head CT did not show any acute intracranial abnormality * CXR did not show any acute cardiopulmonary * Urine pending collect * WBC 16.9, lactic acid 2.2, will hold off on starting antibiotics as there is no clear source of infection. Blood cultures pending * Will hold blood pressure medications and consult cardiology to review medications * Monitor CBC Elevated creatinine?likely due to hypotension, continue to monitor BMP DVT prophylaxis: Heparin IP vs OBS Justification Based on differential dx, clinical care plan, and risk of adverse events, if untreated, in my clinical judgement this patient requires an acute care setting as: OBSERVATION because of an expectation of an under 2 midnight stay. Estimated length of stay (# of days): 2 Documented By: Ada Valentin APRN 09/30/24 1604 Signed By: 09/30/24 1653 10/01/24 1317 [facility]06-25-2025 [place] [address] Cardiology Consult Note Signed Patient: Esme Steven MR#: [id number] : 1960 Acct:[id number] Age/Sex: 63 / M Adm Date: 5 Loc: Room: [address] [place] [address] Type: ADM INOo Attending Dr: Leidy Nuno DO Copies to: DO Lala Hannah MD, [facility] Leidy Nuno DO~ Cardiology HPI History of Present Illness Consult Date: 10/01/24 Reason for Consult: Hypotension HPI: Mr. Steven is a 63 year old male who is being seen at request of the hospitalist for hypotension. The patient was discharged 48 hours from [facility] after having admission for chest pain leading to diagnostic heart catheterization which revealed patent for coronary bypass farooq rgery grafts including RIVAS graft to the LAD, saphenous vein graft to diagonal, saphenous vein graft to obtuse marginal, saphenous vein graft to the RCA. His [place] coronary arteries were occluded. Ejection fraction measured 35%. The patient has persistent atrial fibrillation, last cardioversion was September 2024 and has not been anticoagulation since he has a watchman and has not been on antiarrhythmic therapy. The patient was discharged home on valsartan 40mg daily in addition to spironolactone/hydrocodonethiazide 25/25 mg daily, Toprol-XL 50 mg daily in addition to 80 mg daily of atorvastatin and a baby aspirin. The patient to obtain at home and took his medication became extremelyfatigued dizzy lightheaded and his systolic blood pressure was down to 60 mmHg. He developed some confusion and inability to concentrate. His blood by his family to the emergency department where he was found to have severe hypotensionand received intravenous fluid resuscitation. Apparently the patient had previous similar experience of hypotension following taking valsartan. The patient when interviewed this morning is back to his baseline, systolic pressures 100 mmHg. His medications obviously were heldsince admission. The patient is ready for discharge. All what is needed is ensuring that he is in the proper medications at least for the short-term that he can tolerate. I willcertainly not use ARB or thiazide diuretics for now. He can be discharged home on spironolactone 12.5 mg daily in additionto Toprol-XL 50 mg daily and his baby aspirin and atorvastatin. His colchicine use should be used on as-needed basis only. The patient will be considered for ablation for atrial fibrillationas an outpatient. He would benefit from SGLT2 inhibitors that will be directed by his primary rn testing. Review of Systems Review of Systems Review of systems: 10 point review of system outside of what is covered above in HPI was unremarkable [facility] Medical History (Updated 10/01/24 @ 11:35 by Lala Arce MD) Vitamin D deficiency Macrocytosis without anemia Chest wall contusion Acute bronchitis due to other specified organisms Cough Diverticulitis Atrial fibrillation s/p LAAO procedure - 01/2024, Echo: LVEF 45%, CHARISSA, normal RV size/function - 08/2024, DCCV: 09/2024 Hypothyroid Hypercholesterolemia GENESIS (generalized anxiety disorder) ASHD (arteriosclerotic heart disease) Pseudogout Primary osteoarthritis 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 Primary hypertension Polymyalgia rheumatica FER (obstructive sleep apnea) Mild episode of recurrent major depressive disorder Lumbar spondylosis Inflammatory polyarthritis Hypomagnesemia Gastroesophageal reflux disease with esophagitis without hemorrhage History of left heart catheterization (LHC) x8 ASHD (arteriosclerotic heart disease) CABG x 4 - 2014, PCI/stent (prior to 2014) Bulging lumbar disc Osteoarthritis Gout BPH (benign prostatic hyperplasia) Hyperlipidemia Myocardial infarct x3 Mitral valve disorder Surgical History (Updated 09/30/24 @ 20:16 by Vitaliy Brower DO) Presence of Watchman left atrial appendage closure device (~06/2024) H/O colonoscopy (~12/2023) 12/2022 polypectomy (repeat 5 years) S/P total right hip arthroplasty (~02/2023) S/P total left hip arthroplasty History of bilateral knee replacement History of vasectomy History of appendectomy History of lumbar surgery History of cardiac catheterization multiple, LHC: occluded mid LAD, occluded prox LCx, occluded RCA, patent RIVAS to LAD, SVT to diagonal, marginal, RCA - 09/2024 S/P CABG x 4 2014 H/O heart artery stent prior to 2014 Family History Mother Heart disease Kidney stones Pacemaker Stroke Father H/O heart artery stent CAD (coronary artery disease) Brother Agent orange exposure Brother Brain aneurysm Social History Smoking Status: Never smoker Substance Use Type: Alcohol Substance Abuse Comment: 4-5 beers daily Meds Medications and Allergies Allergies No Known Allergies Allergy (Verified 09/30/24 14:24) Home Medications valacyclovir 500 mg tablet See Rx Instructions .Route .COMPLEX #90 tabs 12/24/23[Rx Confirmed 09/30/24] levothyroxine 150 mcg tablet See Rx Instructions .Route .COMPLEX #90 tabs 03/20/24 [Rx Confirmed 09/30/24] metoprolol succinate 50 mg tablet,extended release 24 hr See Rx Instructions .Route .COMPLEX #90 tabs 03/20/24 [Rx Confirmed 09/30/24] alprazolam 0.5 mg tablet 0.5 mg PO QHS 90 days #90 tabs 07/01/24 [Rx Confirmed 09/30/24] pantoprazole 40 mg tablet,delayed release 40 mg PO DAILY 90 days #90 tabs 07/01/24 [Rx Confirmed 09/30/24] aspirin 81 mg tablet 81 mg PO DAILY 09/08/24 [History Confirmed 09/30/24] spironolactone 25 mg-hydrochlorothiazide 25 mg tablet 1 tab PO DAILY 09/08/24 [History Confirmed 09/30/24] atorvastatin 80 mg tablet 80 mg PO QPM 30 days #30 tabs 09/29/24 [Rx Confirmed 09/30/24] isosorbide mononitrate 30 mg tablet,extended release 24 hr 30 mg PO QAM 30 days #30 tabs 09/29/24 [Rx Confirmed 09/30/24] magnesium oxide 400 mg (241.3 mg magnesium) tablet 400 mg PO DAILY 30 days #30 tabs 09/29/24 [Rx Confirmed 09/30/24] nitroglycerin 0.4 mg sublingual tablet 0.4 mg sublingual Q5M PRN Chest Pain 30 days #25 tabs 09/29/24 [Rx Confirmed 09/30/24] valsartan 40 mg tablet 40 mg PO DAILY 30 days #30 tabs 09/29/24 [Rx Confirmed 09/30/24] allopurinol 100 mg tablet 200 mg PO DAILY 09/30/24 [History Confirmed 09/30/24] dapagliflozin propanediol 10 mg tablet 10 mg PO DAILY 30 days #30 tabs 10/01/24 [Rx] spironolactone 25 mg tablet 12.5 mg (1/2 x 25 mg) PO DAILY 30 days #15 tabs 10/01/24 [Rx] Exam Physical Exam Vital Signs: Temp Pulse Resp BP Pulse Ox O2 Del Method 97.9 F 97 18 106/72 95 Room Air 10/01/24 08:25 10/01/24 11:14 10/01/24 11:14 10/01/24 11:14 10/01/24 11:14 10/01/24 11:14 Const General: cooperative, healthy appearing, comfortable and no acute distress Nutritional Appearance: overweight Orientation: alert, awake and oriented x3 HEENT Head: normal to inspection, normocephalic and atraumatic Ears: hearing grossly normal bilaterally Nose: external nose normal Face and sinus: normal facial exam Eyes Conjunctivae: conjunctivae normal Pupils: PERRL Neck Neck: trachea midline and supple Neck mass: No Thyroid: thyroid normal Carotids: normal carotid upstroke Resp Effort & Inspection: normal respiratory effort Auscultation: clear to auscultation bilaterally Cardio Jugular venous pressure: no JVD Palpation: normal PMI Rate: regular rate Rhythm: abnormal rhythm irregularly irregular Heart Sounds: S1 normal and S2 normal GI Inspection: normal to inspection Palpation: soft and no hepatosplenomegaly Auscultation: normal bowel sounds Extrem General: no clubbing, cyanosis or edema Results - Cardiology Labs 10/01/24 06:50 10/01/24 06:50 Lab results: Cardiac Enzymes 09/30/24 Range/Units 14:21 Total Creatine Kinase 18 L (30-223) U/L B-Natriuretic Peptide 308.0 H (5-100) pg/mL CBC 09/30/24 10/01/24 Range/Units 14:21 06:50 RBC 5.01 4.32 (3.90-5.60) x10E6/uL Hgb 17.3 H 15.0 (13.0-17.0) g/dL Hct 51.1 H 44.0 (38.8-50.0) % Plt Count 218 161 D (150-450) x10E3/uL Neut # (Auto) 14.2 H 10.2 H (1.8-7.7) x10E3/uL Lymph # (Auto) 1.9 2.2 (1.00-4.8) x10E3/uL [place] # (Auto) 0.7 1.1 H (0.0-0.8) x10E3/uL Eos # (Auto) 0.0 0.1 (0.0-0.45) x10E3/uL Baso # (Auto) 0.1 0.1 (0.0-0.2) x10E3/uL Comprehensive Metabolic Panel 09/30/24 10/01/24 Range/Units 14:21 06:50 Sodium 135 L 135 L (136-145) mmol/L Potassium 4.0 3.6 (3.5-5.1) mmol/L Chloride 101 104 (98-107) mmol/L Carbon Dioxide 24.7 25.4 (21.0-31.0) mmol/L BUN 17 17 (7-25) mg/dL Creatinine 1.32 H D 0.79 D (0.70-1.30) mg/dL Glucose 171 H 120 H (70-100) mg/dL Calcium 9.3 8.4 L (8.6-10.3) mg/dL Intake and Output 09/30/24 10/01/24 10/01/24 23:59 07:59 15:59 Intake Total 500 / 1500 250 / 250 Balance 500 / 1500 250 / 250 Intake: IV 500 / 1500 Sodium Chloride 0.9% 500 ml 500 500 / 500 ml @ 999 mls/hr IV .Q31M ONE Rx#:[id number] Oral 250 / 250 Other: # Unmeasured Voids 3 Weight 93.6 kg 93.5 kg Patient Weight 10/01/24 23:59 Weight 93.5 kg Lab 09/30/24 14:21 PT 11.8 INR 1.0 EKG Interpretations EKG Attestation EKG: I reviewed this ECG and interpreted as documented below: (ECG revealed atrial fibrillation, old inferior myocardial infarction, diffuse repolarization normalities, IVCD) A&P - Cardiology (1) Acute hypotension: Assessment/Problem Details: Due to medications, resolved Plan: Avoid aggressive hypertension medications regimen, discontinue ARB and hydrochlorothiazide, maintain adequate hydration Code(s): I95.9 - Hypotension, unspecified (2) Pre-syncope: Assessment/Problem Details: Due to severe hypotension, resolved, CT scan of the head was unremarkable Plan: Maintain normal blood pressure readings Code(s): R55 - Syncope and collapse (3) Presence of Watchman left atrial appendage closure device: Assessment/Problem Details: Placed in 2023 at [facility] Plan: Continue to be monitored, continue baby aspirin Code(s): Z95.818 - Presence of other cardiac implants and grafts (4) Hypercholesterolemia: Plan: Continue high intensity statin in addition to low-fat diet and achieving ideal body weight Code(s): E78.00 - Pure hypercholesterolemia, unspecified (5) Primary hypertension: Assessment/Problem Details: Patient presented with severe hypotension Plan: Due to severe LV systolic dysfunction it is unlikely that the patient will need aggressive medical regimen for hypertension beyond heart failure therapy. Will not resume ARB but continue metoprolol succinate and spironolactone Code(s): I10 - Essential (primary) hypertension (6) ASHD (arteriosclerotic heart disease): Assessment/Problem Details: Patient has severe three-vessel coronary heart disease with four-vessel bypass surgery, all bypasses are open based on cardiac catheterization 48 hours ago Plan: Continue aspirin and high intensity statin Code(s): I25.10 - Atherosclerotic heart disease of [place] coronary artery without angina pectoris (7) Persistent atrial fibrillation: Assessment/Problem Details: Not very symptomatic but in the presence of severe LV systolic dysfunction [facility] of normal sinus rhythm is desirable Plan: Consideration for ablation for atrial fibrillation Code(s): I48.19 - Other persistent atrial fibrillation (8) Ischemic cardiomyopathy: Assessment/Problem Details: Stage C functional class II NYHA Plan: Due to hypotension in relation to ARB we will not resume it at this time. He was continued on metoprolol succinate and spironolactone 12.5 mg daily, consideration for SGLT2 inhibitors Code(s): I25.5 - Ischemic cardiomyopathy Documented By: Lala Arce MD, [facility] 1127 Signed By: 10/01/24 1138 [facility]06-24-2025 Radiology Diagnostic study note [facility] Main [place] [address] [place] [address] CT Scan Report Signed Patient: Esme Steven MR#: [id number] : 1960 Acct:[id number] Age/Sex: 63 / M ADM Date: Loc: ER Room: Type: [facility] ER Attending Dr: Copies to: Radha Medina MD~ Ordering Provider: Radha Medina MD Date of Service: 09/30/24 CT/CT head/brain wo con: requested by hospitalist CT BRAIN WITHOUT CONTRAST: CLINICAL HISTORY: Blurred vision, weakness COMPARISON: 08/30/2023 TECHNIQUE: Contiguous axial unenhanced images were obtained through the brain. This CT exam was performed using one or more following dose reduction techniques: Automated exposure control, adjustmentof the mA and/or kV accordingto patient size, or use of iterative reconstruction technique. FINDINGS: There is no evidence of midline shift, intra or extra-axial fluid collection, hemorrhage or CT evidence of acute large vascular distribution stroke Visualized intraorbital contents appear unremarkable. Visualized paranasal sinuses are clear. The surrounding soft tissues are normal. CT/CT head/brain wo con IMPRESSION: NO ACUTE INTRACRANIAL ABNORMALITY. Impression dictated by: Ap Paul M.D. 09/30/2024 4:34 PM Dictation Location: [facility]--29 Transcribed By: GWEN 09/30/24 1634 Dictated By: Ap Paul MD 09/30/24 1630 Signed By: 09/30/24 1634 [facility] Work Phone: 1(344) 517-146806-23-2025 Evaluation note* Diagnosis Onset Date Resolution Status Admit Date Abnormal cardiovascular stre ss test acute September 29, 2024 3:07am ASHD (arteriosclerotic heart disease) acute September 29, 2024 3:07am Atrial fibrillation acute September 29, 2024 3:07am Hypercholesterolemia acute September 29, 2024 3:07am Hypothyroid acute September 29 3:07am FER (obstructive sleep apnea) acute September 29, 2024 3:07am Presence of Watchman left at rial appendage closure device acute September 292024 3:07am Chest pain resolved September 29 3:07am ASHD (arteriosclerotic heart disease) acute September 30, 2024 4:14pm Hypercholesterolemia acute September 30, 2024 4:14pm Persistent atrial fibrillation acute September 30, 2024 4:14pm Presence of Watchman left at rial appendage closure device acute September 302024 4:14pm Acute hypotension resolved September 302024 4:14pm MIESHA (acute kidney injury) resolved September 30, 2024 4:14pm Atypical chest pain resolved September 30, 2024 4:14pm Blurred vision, bilateral resolved September 30, 2024 4:14pm Pre-syncope resolved September 30 4:14pm Ischemic cardiomyopathy inactive J 2024 4:14pm Primary hypertension inactive September 30, 2024 4:14pm ASHD (arteriosclerotic heart disease) acute October 08, 2024 1 :53pm Atrial fibrillation acute October 08, 2024 1:53pm Chronic HFrEF (heart failure with reduced ejection fraction) acute October 08, 2024 1:53pm GENESIS (generalized anxiety disorder) acute October 08, 2024 1 :53pm Hypercholesterolemia acute October 08, 2024 1:53pm Hypothyroid acute October 08 1:53pm FER (obstructive sleep apnea) acute October 08, 2024 1:53pm Pseudogout acute October 08, 2024 1:53pm Greater trochanteric bursiti s 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 acute October 23, 2024 1:54pm History of total right hip arthroplasty acute October 23, 2024 1:54pm Persistent atrial fibrillation acute December 09, 2024 8:11am [facility] Work Phone: 1(891) 278-424406-23-2025 Evaluation note* Diagnosis Onset Date Resolution Status Admit Date Abnormal cardiovascular stre ss test acute September 29, 2024 3:07am ASHD (arteriosclerotic heart disease) acute September 29, 2024 3:07am Atrial fibrillation acute September 29, 2024 3:07am Hypercholesterolemia acute September 29, 2024 3:07am Hypothyroid acute September 29 3:07am FER (obstructive sleep apnea) acute September 29, 2024 3:07am Presence of Watchman left at rial appendage closure device acute September 292024 3:07am Chest pain resolved September 29 3:07am ASHD (arteriosclerotic heart disease) acute September 30, 2024 4:14pm Hypercholesterolemia acute September 30, 2024 4:14pm Persistent atrial fibrillation acute September 30, 2024 4:14pm Presence of Watchman left at rial appendage closure device acute September 302024 4:14pm Acute hypotension resolved September 302024 4:14pm MIESHA (acute kidney injury) resolved September 30, 2024 4:14pm Atypical chest pain resolved September 30, 2024 4:14pm Blurred vision, bilateral resolved September 30, 2024 4:14pm Pre-syncope resolved September 30 4:14pm Ischemic cardiomyopathy inactive J 2024 4:14pm Primary hypertension inactive September 30, 2024 4:14pm ASHD (arteriosclerotic heart disease) acute October 08, 2024 1 :53pm Atrial fibrillation acute October 08, 2024 1:53pm Chronic HFrEF (heart failure with reduced ejection fraction) acute October 08, 2024 1:53pm GENESIS (generalized anxiety disorder) acute October 08, 2024 1 :53pm Hypercholesterolemia acute October 08, 2024 1:53pm Hypothyroid acute October 08 1:53pm FER (obstructive sleep apnea) acute October 08, 2024 1:53pm Pseudogout acute October 08, 2024 1:53pm Greater trochanteric bursiti s 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 acute October 23, 2024 1:54pm History of total right hip arthroplasty acute October 23, 2024 1:54pm Persistent atrial fibrillation acute December 09, 2024 8:11am Greater trochanteric bursiti s 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 acute December 15, 025 10:51am Other chronic pain acute Septem 2024 10:51am Other spondylosis with radiculopathy, lumbar region acute Sep 2024 10:51am [facility] Work Phone: 1(421) 893-217706-20-2025 Telephone encounter Note* Telephone Encounter - Debra Luna RN - 09/26/2024 3:36 PM EDT Pt returning call Read message below Voiced understanding No further questions [facility]06-20-2025 Miscellaneous Notes* Telephone Encounter - Debra Luna RN - 09/26/2024 3:36 PM EDT Pt returning call Read message below Voiced understanding No further questions * Telephone Encounter - Melany Pearson MA - 09/26/2024 12:56 PM EDT LMTCB * Telephone Encounter - Heladio Pineda MD - 09/26/2024 11:55 AM EDT Please call patient. Thank you for [...] on a speedy recovery! Warm regards, :) * Telephone Encounter - Yannick Sykes - 09/25/2024 3:45 PM EDT Patient is stating he can't walk, he went back on the steroid he is taking 2 of 4 mg , He said thathe can walk, He is requesting a call from a nurse or Dr. Pineda. Next year appointment is scheduled , labs he said that he will walk in and do them * Telephone Encounter - Heladio Pineda MD - 09/13/2024 10:21 AM EDT Please call patient to schedule Nonfasting labs Follow up for osteoarthritis/PMR/gout in 6-12months Thankyou. documented in [facility] Instructions* Patient Instructions* Heladio Pineda MD - 09/26/2024 3:35 PM [...] touching your toes, sit-ups, using row machine nursing home pain recommendations per primary care provider/pain clinic Nonfasting labs as scheduled Thank you! documented in [facility] Telephone encounter Note * Telephone Encounter - Melany Pearson MA - 09/26/2024 12:56 PM EDT LMTCB [facility]06-20-2025 NoteHNO ID: [id number] Author: HELADIO PINEDA MD Service: ? Author Type: Physician Type: Progress Notes Filed: 09/26/2024 15:38 Note Text: THIS IS AN AMBULATORY TELEPHONE VISIT Patient [...] visit. Either the patient or their legal help desk representative has been informed of the risks [...] hips, knees, all over, worse when sitting nursing home. Tried mobic this week mild response. Likes [...] dose steroids), then may consider trial of dmards/k (more content not included)...[facility]06-20-2025 History of Present illness Narrative* Heladio Pineda MD - 09/26/2024 12:27 PM EDT THIS IS AN AMBULATORY TELEPHONE VISIT Patient has verbally agreed/consented to this telephone encounter, not originating from a related Evaluation & Management service provided within the previous 7 days. NOTE: Cannot be used if an Evaluation & Management service or procedure is planned within the next 24 hours. I have communicated my name and active licensure. The patient's identity and physical location wereverified at the time of this visit. Either the patient or their legal help desk representative has been informed of the risks and benefits of -- and alternatives to -- treatment through a remote evaluation andconsents to proceed with the evaluation remotely. It required patient-provider interaction for the medical decision making as documented below. 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 2weeks [...] but happy with rheum care. No falls/fx/trauma/illness/oral sores/jhon h/hairloss/jaw pain/dysphagia/epistaxis/hemoptysis since last visit. 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 Tried mobic this week mild response. Likes celebrex better and wants to restart celebrex. Reports pain -10/16. Has minimal AM stiffness. 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 Feels safe at home. Has enough food, supplies and medications. Overall mildly uncomfortable but happy with rheum care. No falls/fx/trauma/illness/oral sores/rash/hairloss/jaw pain/dysphagia/epistaxis/hemoptysis since last visit. No adverse effects with meds. No other complaints. Patientdenies fever, chills, cp, dyspnea, nausea, vomiting, night sweats, scalp tenderness, visual changes, delgadillo, bowel/bladder changes, weight changes or other complaints. 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 Only takes celebrex when off steroids.S/p R THR. Keloid on incision site. Did home PT exercises, off walker and cane. Mild leg edema/ swelling. Last visit pain in left arm, R upper arm/bicep. Possible 06/2023 left rotator cuff tear repairvs joint replacement. COVID vaccine 06/04/20, 06/25/20, 04/11/21. [...] most recent prednisone but had tolerated it longtime ago. 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 Off plavix x 2weeks 05/2024 fell twice on ice and steps on ice, bruises R ribs, then had bronchitis, treated with antibiotics tesdelmi hoffman. Still has cough 09/05/23 normal esr [...] 12, crp 0.6; Pain worse when sitting nursing home. Tried mobic few weeks ago with mild [...] with cholesterol med, see cardiology s/p Watchman, st art prn heat/ice/otc arthritis creams, low impact weightbearing exercise as tolerated, avoid aggravating triggers, answered all questions and concerns, patient voiced understanding. RECOMMENDATION/PLAN: Reviewed all available labs/tests with patient Provided printed info 07/05/23 IM 40mg kenalog with nurse 09/26/24 check nonfasting labs this month Modified 09/26/24 HATTIE 0, pain 90%;09/13/24 HATTIE 0 pain 60-70%;06/30/24 HATTIE 0, pain 80-100%;07/05/23 HAQ0, pain 70-90%;03/05/23 HATTIE 0, pain 30-40%;January 05, [...] touching your toes, sit-ups, using row machine nursing home pain recommendations per primary care provider/pain [...] video & audio (virtual) or phone or [id number] patient care, completing clinical documentation, obtaining and/or [...] cc Vitaliy Brower DO documented in this encounterKind[facility] Telephone encounter Note * Telephone Encounter - Heladio Pineda MD - 09/26/2024 11:55 AM EDT Please call patient. Thank you for [...] on a speedy recovery! Warm regards, :) [facility] Telephone encounter Note* Telephone Encounter - Yannick Sykes - 09/25/2024 3:45 PM EDT Patient is stating he can't walk, he went back on the steroid he is taking 2 of 4 mg , He said thathe can walk, He is requesting a call from a nurse or Dr. Pineda. Next year appointment is scheduled , labs he said that he will walk in and do them [facility]07[facility] Telephone encounter Note* Telephone Encounter - Heladio Pineda MD - 09/13/2024 10:21 AM EDT Please call patient to schedule Nonfasting labs Follow up for osteoarthritis/PMR/gout in 6-12months Thankyou. [facility]06-07-2025 Instructions* Patient Instructions* Heladio Pineda MD - 09/13/2024 10:21 AM [...] touching your toes, sit-ups, using row machine nursing home pain recommendations per primary care provider/pain clinic Nonfasting labs as scheduled Thank you! documented in this encounterKindred [facility]06-07-2025 History of Present illness Narrative* Heladio Pineda MD - 09/13/2024 10:00 AM EDT THIS IS A AMBULATORY TELEPHONE VISIT Patient has verbally agreed/consented to this telephone encounter, not originating from a related Evaluation & Management service provided within the previous 7 days. NOTE: Cannot be used if an Evaluation & Management service or procedure is planned within the next 24 hours. I have communicated my name and active licensure. The patient's identity and physical location wereverified at the time of this visit. Either the patient or their legal help desk representative has been informed of the risks and benefits of -- and alternatives to -- treatment through a remote evaluation andconsents to proceed with the evaluation remotely. It required patient-provider interaction for the medical decision making as documented below. 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 Tried mobic this week mild response. Likes celebrex better and wants to restart celebrex. Reports pain -10/16. Has minimal AM stiffness. 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 Feels safe at home. Has enough food, supplies and medications. Overall mildly uncomfortable but happy with rheum care. No falls/fx/trauma/illness/oral sores/rash/hairloss/jaw pain/dysphagia/epistaxis/hemoptysis since last visit. No adverse effects with meds. No other complaints. Patientdenies fever, chills, cp, dyspnea, nausea, vomiting, night sweats, scalp tenderness, visual changes, delgadillo, bowel/bladder changes, weight changes or other complaints. Last visit supportive care, historyof 40mg kenalog IM with nurse, see cardiology, [...] friendly diet, improved with allopurinol, colchicine, see cardiologys/p Watchman, start prn heat/ice/otc arthritis creams, low [...] minimal AM stiffness. COVID vaccine 06/04/20, 06/25/20, 1/3/22. Feels safe at home. 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 Mild narrowing of the [...] great toe/start alloupurinol ~2007, left index finger tyler blakely 1979, Afib temporarily,S/p b/l TKR ~2012 bone [...] than medrol. Only takes celebrex when off steroids.S/p R THR. Keloid on incision site. Did home PT exercises, off walker and cane. Mild leg edema/ swelling. Last visit pain in left arm, R upper arm/bicep. Possible 06/2023 left rotator cuff tear repairvs joint replacement. COVID vaccine 06/04/20, 06/25/20, 04/11/21. [...] most recent prednisone but had tolerated it longtime ago. 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 Tried mobic this week mild response. Likes [...] HATTIE 0, pain 80-100%;07/05/23 HATTIE 0, pain 70-90%;03/05/23HAQ 0, pain 30-40%;January 05, 2023 HAQ0, pain [...] touching your toes, sit-ups, using row machine nursing home pain recommendations per primary care provider/pain [...] preparing to talk with the patient via video& audio (virtual) or phone or [id number] patient care, completing clinical documentation, obtaining and/or [...] cc Vitaliy Brower DO documented in this encounterKindred [facility]06-07-2025 NoteHNO ID: [id number] Author: HELADIO PINEDA MD Service: ? Author [...] visit. Either the patient or their legal help desk representative has been informed of the risks [...] hips, knees, all over, worse when sitting nursing home. Tried mobic this week mild response. Likes [...] rheum care. No falls/f (more content not included)...[facility] 09-09-2024 Procedure noteJoshua V[place] [id number] Cardioversion Procedure Note Signed Patient: Esme Steven MR#: [id number] : 1960 Acct:[id number] Age/Sex: 63 / M Adm Date: 5 Loc: PO Room: Type: [facility] Attending Dr: Atnonio Steele MD Copies to: DO Antonio Hannah MD~ Cardioversion PRE PROCEDURE DATE OF PROCEDURE: 09/09/2024 PRE-OPERATIVE DIAGNOSIS: Atrial Fibrillation ASA CLASSIFICATION: 2 MALLAMPATI CLASSIFICATION: Class 2: PROCEDURE PROCEDURE PERFORMED: Elective direct current cardioversion under conscious sedation PROCEDURE DESCRIPTION: After informed consent obtained by explaining risks, benefits, and alternatives to patient. Informed consent signed. Continuous blood pressure, O2 saturations, and heart rate monitoring was established. A total of 0.5 mg of atropine were given then a total of 150 mg Diprivan was given and using 150 joules, a synchronized shock was delivered withanterior/posterior pads position. This resulted in the conversion to normal sinus rhythm. No complications were noted. COMPLICATIONS: None PLAN: 1. Successful cardioversion of atrial fibrillation to normal sinus rhythm 2. Recommendation continue current management patient can stop his Eliquis in 1week considering he had a Watchman device Documented By: Antonio Steele MD 09/09/24 1228 Signed By: 09/09/24 1230 [facility]05-27-2025 Telephone encounter Note* Telephone Encounter - Ileana George - 09/02/2024 10:41 AM EDT Patient scheduled on 09/13/2024 [facility] Miscellaneous Notes* Telephone Encounter - Ileana George - 09/02/2024 10:41 AM EDT Patient scheduled on 09/13/2024 * Telephone Encounter - Heladio Pineda MD - 08/31/2024 1:09 PM EDT Please call patent To schedule nonfasting labs Active in 07/2024. Ok to complete at [facility]. Please schedule earlier follow up visit for PMR May offer Sat. Clinic (virtual/phone only) 09/13/24 and 10/11/24 are open. Thank you. documented in this encounterKindred [facility]05-25-2025 Telephone encounter Note * Telephone Encounter - Heladio Pineda MD - 08/31/2024 1:09 PM EDT Please call patent To schedule nonfasting labs Active in 07/2024. Ok to complete at [facility]. Please schedule earlier follow up visit for PMR May offer Sat. Clinic (virtual/phone only) 09/13/24 and 10/11/24 are open. Thank you. [facility] History of Present illness Narrative* Antonio Steele MD - 08/22/2024 9:00 AM EDT Chief Complaint Patient presents with Follow-up 6 month follow up for cardiomyopathy Subjective Esme Steven is a 63 y.o. male HPI Patient is here for follow-up after recent hospitalization. He presented with symptoms shortness ofbreath and was found to have recurrence of [...] pain. Described mild shortness of breath. His recentstress test showed inferolateral IN with mild area of ashia-infarction ischemia 3. [...] elected to proceed with simple cardioversion. He und erstand the risk of recurrence might be in the 50% range if that to happen will consider sotalol orTikosyn versus ablation. 2. The patient was placed on Eliquis. He describe easy bruisability I told him will switch him backto Plavix after cardioversion 3. Continue aggressive approach [...] exam, discussion and plan. documented in this [facility] Work Phone: 1(487) 866-420305-16-2025 Instructions* Patient Instructions* Zo Castro LPN - 08/22/2024 9:00 AM [...] eliquis and resuming the plavix after DCC * Attachments The following attachments cannot be sent through Care Everywhere. * Heart Healthy Diet (Maltese) documented in this [facility] Work Phone: 1(166) 204-185704-23-2025 Evaluation note* Diagnosis Onset Date Resolution Status Admit Date Purpura of skin due to vascu lar fragility deleted July 30, 2024 9:44am Abdominal pain noneactive July 9:44am Diverticulitis large intestine nonea ctive July 30, 2024 9:44am Primary osteoarthritis, right hand a cute August 04, 2024 9:03am Contusion of left hand deleted Ap ril 2024 9:03am Left hand pain deleted July 9:03am History of revision of total replacement of left hip joint acute Ap ril 2024 11:36am Contusion of left thigh deleted A pril 2024 11:36am ASHD (arteriosclerotic heart disease) acute August 11, 2024 12:48pm Atrial fibrillation acute August 112024 12:48pm Hyperlipidemia acute August 11, 2 025 12:48pm Presence of Watchman left at rial appendage closure device acute August 12:48pm Primary hypertension acute August 11, 2024 12:48pm Chest pain resolved August 11, 2024 12:48pm Unstable angina resolved August 11, 2024 12:48pm Paroxysmal atrial fibrillati on with RVR deleted August 11, 2024 12:48pm ASHD (arteriosclerotic heart disease) acute August 19, 2024 4:09pm Atrial fibrillation acute August 072024 4:09pm GENESIS (generalized anxiety disorder) a cute August 19, 2024 4:09pm Hypercholesterolemia acute August 19, 2024 4:09pm Hypothyroid acute August 19 4:09pm FER (obstructive sleep apnea) acute August 19, 2024 4:09pm Primary hypertension acute August 19, 2024 4:09pm Abnormal cardiovascular stre ss test acute September 29, 2024 3:07am ASHD (arteriosclerotic heart disease) acute September 29, 2024 3:07am Atrial fibrillation acute September 29, 2024 3:07am Hypercholesterolemia acute September 29, 2024 3:07am Hypothyroid acute September 29 3:07am FER (obstructive sleep apnea) acute September 29, 2024 3:07am Presence of Watchman left at rial appendage closure device acute September 292024 3:07am Chest pain resolved September 29 3:07am Acute hypotension acute September 302024 4:14pm MIESHA (acute kidney injury) acute September 30, 2024 4:14pm ASHD (arteriosclerotic heart disease) acute September 30, 2024 4:14pm Atypical chest pain acute September 30, 2024 4:14pm Blurred vision, bilateral acute September 30, 2024 4:14pm Hypercholesterolemia acute September 30, 2024 4:14pm Ischemic cardiomyopathy acute J 2024 4:14pm Persistent atrial fibrillation acute September 30, 2024 4:14pm Pre-syncope acute September 30 4:14pm Presence of Watchman left at rial appendage closure device acute September 302024 4:14pm Primary hypertension acute September 30, 2024 4:14pm [facility] Work Phone: 1(721) 529-470304-23-2025 Evaluation note* Diagnosis Onset Date Resolution Status Admit Date Purpura of skin due to vascu lar fragility deleted July 30, 2024 9:44am Abdominal pain noneactive July 9:44am Diverticulitis large intestine nonea ctive July 30, 2024 9:44am Primary osteoarthritis, right hand a cute August 04, 2024 9:03am Contusion of left hand deleted Ap ril 2024 9:03am Left hand pain deleted July 9:03am History of revision of total replacement of left hip joint acute Ap ril 2024 11:36am Contusion of left thigh deleted A pril 2024 11:36am ASHD (arteriosclerotic heart disease) acute August 11, 2024 12:48pm Atrial fibrillation acute August 112024 12:48pm Hyperlipidemia acute August 11, 12:48pm Presence of Watchman left at rial appendage closure device acute August 12:48pm Chest pain resolved August 11, 2024 12:48pm Unstable angina resolved August 11, 2024 12:48pm Primary hypertension inactive August 11, 2024 12:48pm Paroxysmal atrial fibrillati on with RVR deleted August 11, 2024 12:48pm ASHD (arteriosclerotic heart disease) acute August 19, 2024 4:09pm Atrial fibrillation acute August 072024 4:09pm EGNESIS (generalized anxiety disorder) a cute August 19, 2024 4:09pm Hypercholesterolemia acute August 19, 2024 4:09pm Hypothyroid acute August 19 4:09pm FER (obstructive sleep apnea) acute August 19, 2024 4:09pm Primary hypertension inactive August 19, 2024 4:09pm Abnormal cardiovascular stre ss test acute September 29, 2024 3:07am ASHD (arteriosclerotic heart disease) acute September 29, 2024 3:07am Atrial fibrillation acute September 29, 2024 3:07am Hypercholesterolemia acute September 29, 2024 3:07am Hypothyroid acute September 29 3:07am FER (obstructive sleep apnea) acute September 29, 2024 3:07am Presence of Watchman left at rial appendage closure device acute September 292024 3:07am Chest pain resolved September 29 3:07am ASHD (arteriosclerotic heart disease) acute September 30, 2024 4:14pm Hypercholesterolemia acute September 30, 2024 4:14pm Presence of Watchman left at rial appendage closure device acute September 302024 4:14pm Acute hypotension resolved September 302024 4:14pm MIESHA (acute kidney injury) resolved September 30, 2024 4:14pm Atypical chest pain resolved September 30, 2024 4:14pm Blurred vision, bilateral resolved September 30, 2024 4:14pm Pre-syncope resolved September 30 4:14pm Ischemic cardiomyopathy inactive J 2024 4:14pm Persistent atrial fibrillation inact mallory September 30, 2024 4:14pm Primary hypertension inactive September 30, 2024 4:14pm ASHD (arteriosclerotic heart disease) acute October 08, 2024 1:53pm Atrial fibrillation acute October 08, 2024 1:53pm GENESIS (generalized anxiety disorder) a cute October 08, 2024 1:53pm Hypercholesterolemia acute October 08, 2024 1:53pm Hypothyroid acute October 08 1:53pm FER (obstructive sleep apnea) acute October 08, 2024 1:53pm [facility] Work Phone: 1(493) 647-949304-23-2025 Evaluation note* Diagnosis Onset Date Resolution Status Admit Date Purpura of skin due to vascu lar fragility deleted July 30, 2024 9:44am Abdominal pain noneactive July 9:44am Diverticulitis large intestine nonea ctive July 30, 2024 9:44am Primary osteoarthritis, right hand a cute August 04, 2024 9:03am Contusion of left hand deleted Ap ril 2024 9:03am Left hand pain deleted July 9:03am History of revision of total replacement of left hip joint acute Ap ril 2024 11:36am Contusion of left thigh deleted A pril 2024 11:36am ASHD (arteriosclerotic heart disease) acute August 11, 2024 12:48pm Atrial fibrillation acute August 112024 12:48pm Hyperlipidemia acute August 11, 025 12:48pm Presence of Watchman left at rial appendage closure device acute August 12:48pm Chest pain resolved August 11, 2024 12:48pm Unstable angina resolved August 11, 2024 12:48pm Primary hypertension inactive August 11, 2024 12:48pm Paroxysmal atrial fibrillati on with RVR deleted August 11, 2024 12:48pm ASHD (arteriosclerotic heart disease) acute August 19, 2024 4:09pm Atrial fibrillation acute August 072024 4:09pm GENESIS (generalized anxiety disorder) a cute August 19, 2024 4:09pm Hypercholesterolemia acute August 19, 2024 4:09pm Hypothyroid acute August 19 4:09pm FER (obstructive sleep apnea) acute August 19, 2024 4:09pm Primary hypertension inactive August 19, 2024 4:09pm Abnormal cardiovascular stre ss test acute September 29, 2024 3:07am ASHD (arteriosclerotic heart disease) acute September 29, 2024 3:07am Atrial fibrillation acute September 29, 2024 3:07am Hypercholesterolemia acute September 29, 2024 3:07am Hypothyroid acute September 29 3:07am FER (obstructive sleep apnea) acute September 29, 2024 3:07am Presence of Watchman left at rial appendage closure device acute September 292024 3:07am Chest pain resolved September 29 3:07am ASHD (arteriosclerotic heart disease) acute September 30, 2024 4:14pm Hypercholesterolemia acute September 30, 2024 4:14pm Presence of Watchman left at rial appendage closure device acute September 302024 4:14pm Acute hypotension resolved September 302024 4:14pm MIESHA (acute kidney injury) resolved September 30, 2024 4:14pm Atypical chest pain resolved September 30, 2024 4:14pm Blurred vision, bilateral resolved September 30, 2024 4:14pm Pre-syncope resolved September 30 4:14pm Ischemic cardiomyopathy inactive J 2024 4:14pm Persistent atrial fibrillation inact mallory September 30, 2024 4:14pm Primary hypertension inactive September 30, 2024 4:14pm ASHD (arteriosclerotic heart disease) acute October 08, 2024 1:53pm Atrial fibrillation acute October 08, 2024 1:53pm Chronic HFrEF (heart failure with reduced ejection fraction) acute October 08, 2024 1:53pm GENESIS (generalized anxiety disorder) a cute October 08, 2024 1:53pm Hypercholesterolemia acute October 08, 2024 1:53pm Hypothyroid acute October 08 1:53pm FER (obstructive sleep apnea) acute October 08, 2024 1:53pm Pseudogout acute October 08, 2024 1:53pm Greater trochanteric bursiti s 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 acute October 23, 2024 1:54pm History of total right hip arthroplasty acute October 23, 2024 1:54pm [facility] Work Phone: 1(729) 540-866103-31-2025 Telephone encounter Note* Telephone Encounter - Heladio Pineda MD - 07/07/2024 3:10 PM EDT Please Call patient if MyChart [...] above. Please process accordingly. Heladio Pineda MD [facility]03-31-2025 Miscellaneous Notes* Telephone Encounter - Heladio Pineda MD - 07/07/2024 3:10 PM EDT Please Call patient if MyChart [...] accordingly. Heladio Pineda MD documented in this encounterKind[facility]-2025 Evaluation note* Diagnosis Onset Date Resolution Status Admit Date ASHD (arteriosclerotic heart disease) acute July 01, 2024 1:11pm GENESIS (generalized anxiety disorder) a cute July 01, 2024 1:11pm Gastroesophageal reflux dise ase with esophagitis without hemorrhage acute July 01, 2024 1:11pm Hypothyroid acute July 01, 2 025 1:11pm Macrocytosis without anemia acute July 01, 2024 1:11pm [facility] Work Phone: 1(792) 372-456503-25-2025 Evaluation note* Diagnosis Onset Date Resolution Status [...] intestine nonea ctive July 30, 2024 9:44am [facility] Work Phone: [phone]) 765-222803-25-2025 Evaluation note* Diagnosis Onset Date Resolution Status [...] 9:44am Contusion of left hand acute Ap 2024 9:03am Left hand pain acute July 9:03am Primary osteoarthritis, righ t hand acute August 04, 2024 9:03am [facility] Work Phone: 1(465) 189-667403-25-2025 Evaluation note* Diagnosis Onset Date Resolution Status [...] hip joint acute Ap ril 2024 11:36am [facility] Work Phone: 1(108) 576-467203-25-2025 Evaluation note* Diagnosis Onset Date Resolution Status [...] Unstable angina acute August 11, 2024 12:48pm [facility] Work Phone: 1([phone]) 324-668403-25-2025 Evaluation note* Diagnosis Onset Date Resolution Status Admit Date ASHD (arteriosclerotic heart disease) acute July 01, 2024 1:11pm GENESIS (generalized anxiety disorder) a cute July 01, 2024 1:11pm Gastroesophageal reflux dise ase with esophagitis without hemorrhage acute July 01, 2024 1:11pm Hypothyroid acute July 01, 1:11pm Macrocytosis without anemia acute July 01, [...] August 112024 12:48pm Hyperlipidemia acute August 11, 025 12:48pm Paroxysmal atrial fibrillati on with RVR acute August 11, 2024 12:48pm Presence of Watchman left at rial appendage closure device acute August 12:48pm Primary hypertension acute August 11, 2024 12:48pm Chest pain resolved August 11, 2024 [...] Primary hypertension acute August 19, 2024 4:09pm [facility] Work Phone: 1(341) 892-888003-24-2025 History of Present illness Narrative* Heladio Pineda [...] UEs worse since off steroids. Reports pain 7-9/10. Has extended AM stiffness. 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 Reports pain 8-1010. Has minimal AM stiffness. Feels safe at [...] touching your toes, sit-ups, using row machine nursing home pain recommendations per primary care provider/pain [...] video & audio (virtual) or phone or [id number]-[id number] patient care, completing clinical documentation, obtaining and/orreviewing [...] Days Frequency Continuous Intervention/Comfort measure Comments [facility] MYCHART ADDITIONAL DEMO Question 06/25/2024 11:14 AM EDT - Filed by Patient Is this visit related to an accident, other than Workers' Compensation? No Is this visit related to Workers' Compensation? No Do you need an field service consultant? No documented in this [facility]Kind[facility]-2025 NoteHNO ID: [id number] Author: HELADIO PINEDA MD Service: ? Author [...] but happy with rheum (more content not included)...[facility]03-23-2025 Instructions* Patient Instructions* Heladio Pineda MD - [...] touching your toes, sit-ups, using row machine nursing home pain recommendations per primary care provider/pain [...] Ab, Total Negative Negative documented in this encounterKind[facility]01-24-2025 Evaluation note* Diagnosis Onset Date Resolution Status Admit Date Acute bronchitis due to othe r specified organisms acute April 2:00pm Chest wall contusion acute 2024 2:00pm [facility] Work Phone: [phone]) 259-945512-25-2024 Miscellaneous Notes* Telephone Encounter - Bert Newman LPN - 04/02/2024 12:37 AM EST Con 06/04/23 Bmp, mag 06/12/23 [facility]* Telephone Encounter - Bert Newman LPN - 04/02/2024 12:37 AM EST Con 06/04/23 Bmp, mag 06/12/23 [facility]12-09-2024 Evaluation note* Diagnosis Onset Date Resolution Status Admit Date Acute bronchitis due to othe r specified organisms acute March 3:02pm ASHD (arteriosclerotic heart disease) acute March 17 3:02pm Cough acute March 17, 2024 3:02pm Acute bronchitis due to othe r specified organisms acute April 2:00pm Chest wall contusion acute Juan ugo 2024 2:00pm [facility] Work Phone: [phone] 537-515811-07-2024 History of Present illness Narrative* Antonio Steele MD - 02/14/2024 2:00 PM EST Subjective [...] name below, I, Zo Smalls LPN , Scribe attest that this [...] exam, discussion and plan. documented in this [facility] Work Phone: 1(335) 300-568111-07-2024 Instructions* Patient Instructions* Zo Castro LPN - [...] through Care Everywhere. * Heart Healthy Diet (Maltese) documented in this [facility] Work Phone: 1([phone]) 829-863911-05-2024 Evaluation note* Diagnosis Onset Date Resolution Status Admit Date Primary osteoarthritis, righ t hand acute February 11 1:35pm Biceps tendonitis on right acute February 18, 2024 9:37am Rotator cuff syndrome of right shoulder acute February 17, 2 024 9:37am Traumatic complete tear of left rotator cuff acute February 18, 2024 9:37am [facility] Work Phone: 1([phone]) 469-789011-05-2024 Evaluation note* Diagnosis Onset Date Resolution Status [...] othe r specified organisms acute April 2:00pm [facility] Work Phone: 1([phone]) 964-538610-22-2024 Hospital course Narrative* Bruno Almaguer MD - [...] Time Provider Department Center 02/14/2024 2:00 PM Antonio Steele MD [id number] [place] 04/28/2024 8:40 AM Antonio Steele MD [id number] [place] 05/20/2024 10:30 AM [id number] 1 [id number] [place] Bruno Almaguer MD documented in this [facility] Work Phone: [phone] 208-604310-22-2024 Note* Post-Procedure Note - Bruno Almaguer MD - 01/29/2024 12:08 PM EDT Physician Transition of Care Summary Invasive Cardiovascular Lab Procedure Date: 01/29/2024 Attending: * Bird Kowalski - Primary Resident/Fellow/Other Nutrition Technician: Surgeons and Role: * Bruno Almaguer MD - Fellow Indications: Pre-op Diagnosis * Atrial fibrillation, unspecified type (Multi) [I48.91] Post-procedure diagnosis: Post-op Diagnosis * Atrial fibrillation, unspecified type (Multi) [I48.91] Procedure(s): LAAO (Left Atrial Appendage Occlusion) 59389 - GA PERQ CLSR TCAT L ATR APNDGE W/ENDOCARDIAL IMPLNT GA PERQ CLSR TCAT L ATR APNDGE W/ENDOCARDIAL IMPLNT [78605] Description of the Procedure: S/p MARIO closure [...] Closure, 27mm Watchman Flx Pro Laac - [id number] - Implanted Inventory item: DEVICE, CLOSURE, 27MM WATCHMAN FLX PRO LAAC Model/Cat number: [id number] Retirement Assistant: Pressglue Lot number: [id number] Device identifier: [id number] As of 01/29/2024 Status: Implanted Anticoagulation/Antiplatelet Plan: DAPT Estimated Blood Loss: 5 mL Contrast 30ml Anesthesia: Moderate Sedation Anesthesia Staff: No anesthesia staff entered. Any Specimen(s) Removed: Order Name Source Comment Collection Info Order Time BASIC METABOLIC PANEL Blood, Venous Collected By: eTlma Steward RN 01/29/2024 9:31 AM Release result to TNChart Immediate MAGNESIUM Blood, Venous Collected By: Telma Steward RN 01/29/2024 9:31 AM Release result to TNChart Immediate CBC WITH AUTO DIFFERENTIAL Blood, Venous Collected By: Telma Steward RN 01/29/2024 9:31 AM Release result to TNChart Immediate PROTIME-INR Blood, Venous Collected By: Telma Steward RN 01/29/2024 9:31 AM Release result to TNChart Immediate TYPE AND SCREEN Blood, Venous Collected By: Telma Steward RN 01/29/2024 9:31 AM Release result to MyChart Immediate Disposition: ASA and Plavix for 6 months followed by ASA for life CT in 4 months Access site monitoring. TTE today Likely discharge home today once recovery and monitoring period is complete. Electronically signed by: Bruno Almaguer MD, 01/29/2024 1:45 PM [facility] Work Phone: [phone]) 592-336310-22-2024 Miscellaneous Notes* Post-Procedure Note - Bruno Almaguer MD - 01/29/2024 12:08 PM EDT Physician Transition of Care Summary Invasive Cardiovascular Lab Procedure Date: 01/29/2024 Attending: * Bird Kowalski - Primary Resident/Fellow/Other Nutrition Technician: Surgeons and Role: * Bruno Almaguer MD - Fellow Indications: Pre-op Diagnosis * Atrial fibrillation, unspecified type (Multi) [I48.91] Post-procedure diagnosis: Post-op Diagnosis * Atrial fibrillation, unspecified type (Multi) [I48.91] Procedure(s): LAAO (Left Atrial Appendage Occlusion) 77899 - GA PERQ CLSR TCAT L ATR APNDGE W/ENDOCARDIAL IMPLNT GA PERQ CLSR TCAT L ATR APNDGE W/ENDOCARDIAL IMPLNT [[id number]] Description of the Procedure: S/p MARIO closure [...] Closure, 27mm Watchman Flx Pro Laac - [id number] - Implanted Inventory item: DEVICE, CLOSURE, 27MM WATCHMAN FLX PRO LAAC Model/Cat number: [id number] Retirement Assistant: Pressglue Lot number: [id number] Device identifier: [id number] As of 01/29/2024 Status: Implanted Anticoagulation/Antiplatelet Plan: [...] MyChart Immediate PROTIME-INR Blood, Venous Collected By: eTlma Steward RN 01/29/2024 9:31 AM Release result [...] Plan ASA 3 Mild documented in this [facility] Work Phone: [phone] 621-580710-22-2024 History of Present illness Narrative* Olivier Hopkins, Malcolm - 01/29/2024 10:30 AM EDT Pharmacy Medication History Review Esme Steven is a 63 y.o. male admitted for Atrial fibrillation (Multi). Pharmacy reviewed the patient's dsqzd-on-rdcbrsoiw medications and allergies for accuracy. Medications ADDED: None Medications CHANGED: Medrol Medications REMOVED: None The list below reflects the updated WIND PROJECT MANAGER list. Prior to Admission Medications Prescriptions Last [...] clarification and justification. Allergies Reviewed by Olivier Hopkins PharmD on 01/29/2024 Severity Reactions Comments Prednisone Not Specified Other, Headache Light sensitivity. Able to tolerate medrol Patient declines M2B at discharge. Sources: [facility] Pharmacy dispense history Patient interview Additional Comments: None Olivier Hopkins PharmD Transitions of Care Pharmacist 01/29/24 Secure Chat preferred If no response call SpanDeX or HubCast documented in [facility] Work Phone: [phone] 576-225510-22-2024 Note* Pre-Sedation Documentation - Bruno Almaguer MD - 01/29/2024 10:27 AM EDT Patient: Esme Steven NPO guidelines met: Yes Physical Exam Airway Mallampati: III Cardiovascular Dental Pulmonary Plan ASA 3 Mild [facility] Work Phone: 1([phone]) 544-960610-22-2024 History and physical note* Bruno Almaguer MD [...] care of this patient. Bruno Almaguer MD [facility] Work Phone: 1([phone]) 594-660010-22-2024 History and physical note* Bruno Almaguer MD [...] patient. Bruno Almaguer MD documented in this [facility] Work Phone: [phone] 186-571710-22-2024 Hospital Discharge instructions* Discharge Instructions* Sammi Loredo FOAM TANK LAMINATOR-RECREATION ACTIVITIES COORDINATOR - 01/29/2024 9:41 AM EDT Watchman Discharge [...] you have any concerns, youmay contact the Artificial Plastic Eye Maker or if any of these symptoms become excessive, contact your rn testing tonny to the emergency room. No tub [...] you have any questions or concerns - [phone] documented [facility] Work Phone: 1(363) 631-431109-23-2024 [facility] History of Present illness Narrative* Bird Kowalski MD - 12/19/2023 10:15 AM EDT Images from the original note were not included. Cardio: Dr. Steele I was asked by Dr. Steele to evaluate this patient in consultation for evaluation of left atrial appendage closure. The patient is a 62-year-old male with known coronary artery disease, prior coronary bypass graft surgery including RIVAS to LAD, SVG to diagonal, SVG to OM and SVG to RCA, hypertension, FER, hyperlipidemia and persistent atrial fibrillation. 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 [...] thrombus and ashia-device leak Thank you, Dr. Steele, for this consultation and for allowing me to participate in the care of this patient. Bird Kowalski MD [place] [facility], Interventional Cardiology Fellowship Program [facility] Office documented in this encounterC[facility] Work Phone: [phone]) 782-188509-09-2024 Telephone encounter Note* Telephone Encounter - Korin Leyva - 2023 9:29 AM EDT Called patient LVM regards to completing labs as directed below [facility]-09-[facility] Miscellaneous Notes* Telephone Encounter - Korin Leyva [...] - This Specialty 07/05/2023 PMR (polymyalgia rheumatica) ([facility]LY [facility]) Rheumatology Heladio Pineda MD 03/05/2023 PMR (polymyalgia rheumatica) ([facility]) Rheumatology Heladio Pineda MD 01/05/2023 PMR (polymyalgia rheumatica) ([facility]) Rheumatology Heladio Pineda MD Upcoming Rheumatology Appointments - Next 365 Days Visit Type Date Time Department [facility] 03/17/2024 9:00 AM [facility] CBC: None on file in the [...] and advise. Maryann Ramos documented in this encounterKind[facility]24 Telephone encounter Note * Telephone Encounter - [...] above. Please process accordingly. Heladio Pineda MD [facility]09-06-2024 Telephone encounter Note* Telephone Encounter - Melany Pearson MA - 12/14/2023 9:35 AM EDT Images from the original note were not included. Most recent Rheumatology visit: 07/05/2023 (with Heladio Pineda) Last Bone Density on file: 06/28/2023 Rheumatology Care Team: None on file Recent Office Visits - This Specialty 07/05/2023 PMR (polymyalgia rheumatica) ([facility]) Rheumatology Heladio Pineda MD 03/05/2023 PMR (polymyalgia rheumatica) ([facility]) Rheumatology Heladio Pineda MD 01/05/2023 PMR (polymyalgia rheumatica) ([facility]) Rheumatology Heladio Pineda MD Upcoming Rheumatology Appointments - Next 365 Days Visit Type Date Time Department [facility] 03/17/2024 9:00 AM [facility] CBC: None on file in the [...] chronic gout of multiple sites without tophus [facility] Telephone encounter Note* Telephone Encounter - Maryann Prince - 12/13/2023 4:06 PM EDT Patient phones requesting refills as follows: Requested Prescriptions Pending Prescriptions Disp Refills methylPREDNISolone (MEDROL) 4 mg 21 tablet 1 Sig: Day 1=6tabs with food, Day 2=5tabs, Day 3=4tabs, Day 4=3tabs, Day 5=2tabs, Day 6=1tab, No NSAIDs on med Please review and advise. Maryann Ramos [facility]07-11-2024 History of Present illness Narrative* Antonio Steele MD - 10/18/2023 2:40 PM EDT Subjective [...] Scribe Attestation By signing my name below, Pearl Boothe LPN , Scribe attest that this documentation [...] exam, discussion and plan. documented in [facility] Work Phone: [phone]) 103-450807-11-2024 Instructions* Patient Instructions* Pearl Bae LPN - [...] Provided instructions on exercise documented in this encounterC[facility] Work Phone: [phone]) [phone] Telephone encounter Note* Telephone Encounter - Lana Hartman MA - 09/10/2023 9:26 AM EDT Pt aware. Patient asked regarding Medrol. He says he is to take until completed. I stated yes. He wants to know if he should continue his other medications. I let him know Dr. Pineda didn't stated anything about any changes to his medication. Lana Hartman MA [facility]06-03-2024 Miscellaneous Notes* Telephone Encounter - Lana Hartman [...] normal esr 9, crp<0.3; documented in this encounterKindred Hospital [facility]06-02-2024 Telephone encounter Note * Telephone Encounter - [...] chronic Afib. 03/05/23 normal esr 9, crp<0.3; [facility]-29-2024 Telephone encounter Note* Telephone Encounter - Melany Pearson MA - 09/05/2023 2:40 PM EDT Spoke to pt aware of med sent. [facility]-29-2024 Miscellaneous Notes* Telephone Encounter - Melany Samuels [...] his pain. * Telephone Encounter - Heladio Pindea MD - 09/05/2023 9:12 AM EDT Please [...] - This Specialty 07/05/2023 PMR (polymyalgia rheumatica) ([facility]) Rheumatology Heladio Pineda MD 03/05/2023 PMR (polymyalgia rheumatica) ([facility]) Rheumatology Heladio Pineda MD 01/05/2023 PMR (polymyalgia rheumatica) ([facility]) Rheumatology Heladio Pineda MD Upcoming Rheumatology Appointments - Next 365 Days Visit Type Date Time Department [facility] 03/17/2024 9:00 AM [facility] CBC: Latest Ref Rng & [...] diagnoses: Vitamin D deficiency documented in this encounterKindred Hospital [facility]05-29-2024 Telephone encounter Note * Telephone Encounter - [...] above. Please process accordingly. Heladio Pineda MD [facility]-29-2024 Telephone encounter Note* Telephone Encounter - Melany Pearson MA - 09/05/2023 10:21 AM EDT Spoke to pt he states he has been having muscle pain lately and will like to take the medrol dose pack for his pain. [facility]-29-2024 Telephone encounter Note* Telephone Encounter - Heladio Pineda MD - 09/05/2023 9:12 AM EDT Please call patient Inquire if patient still taking medrol Is he have any pain symptoms, PMR symptoms? Per last note patient was off medrol Thank you. [facility]-29-2024 Telephone encounter Note* Telephone Encounter - Melany Pearson MA - 09/05/2023 7:58 AM EDT Images from the original note were not included. Most recent Rheumatology visit: 07/05/2023 (with Heladio Pineda) Rheumatology Care Team: None on file Recent Office Visits - This Specialty 07/05/2023 PMR (polymyalgia rheumatica) ([facility]) Rheumatology Heladio Pineda MD 03/05/2023 PMR (polymyalgia rheumatica) ([facility]) Rheumatology Heladio Pineda MD 01/05/2023 PMR (polymyalgia rheumatica) ([facility]) Rheumatology Heladio Pineda MD Upcoming Rheumatology Appointments - Next 365 Days Visit Type Date Time Department [facility] 03/17/2024 9:00 AM [facility] CBC: Latest Ref Rng & [...] Lab Orders Expected Expires Ordered SED RATE WESTDENISREN [SQWSR] 08/08/23 07/08/24 07/09/23 Auth. provider: Heladio Pineda MD Assoc. diagnoses: Elevated sed rate, Elevated C-reactive protein (CRP) C-REACTIVE PROTEIN (CRP) [SQCRP] 08/08/23 07/08/24 07/09/23 Auth. provider: Heladio Pineda MD Assoc. diagnoses: Elevated sed rate, Elevated C-reactive protein (CRP) VITAMIN D 25 HYDROXY [SQVITD] 10/08/23 07/08/24 07/09/23 Auth. provider: Heladio Pineda MD Assoc. diagnoses: Vitamin D deficiency [facility]-24-2024 Progress note Author Sally Alex [facility] August 31, 2023 3:45pm Note Date/Time August 31, 2023 10:[address] [facility] [address] [place] [address] Hospitalist Progress Note Signed with Addenda Patient: Esme Steven MR#: [id number] : 1960 Acct:[id number] Age/Sex: 62 / M Adm Date: 4 Loc: Room: [address] [place] [address] Type: ADM IN Attending Dr: Sally Alex [...] <Electronically signed by DO RADHA Zavala> 08/31/23 1059 [facility] Work Phone: 1(312) 272-718605-24-2024 History and physical note Author Elliott Talley [facility] August 30, 2023 11:34pm Note Date/Time August 30, 2023 11:[address] [facility] [address] [place] [address] Hospitalist H&P Signed Patient: Esme Steven MR#: [id number] : 1960 Acct:[id number] Age/Sex: 62 / M Adm Date: 4 Loc: Room: [address] [place] [address] Type: ADM IN Attending Dr: Elliott Talley [...] that which is noted above in HPI [facility] Medical History (Updated 08/30/23 @ 23:33 by [...] mg tablet,delayed release 81 mg PO DAILY IN prevention 01/29/17 [History Confirmed 08/30/23] atorvastatin 80 [...] % (Auto) 4.4 % (.) 08/30/23 18:20 [place] % (Auto) 2.3 % (.) 08/30/23 18:20 Eos % (Auto) 0.1 % (.) 08/30/23 18:20 Baso % (Auto) 0.8 % (.) 08/30/23 18:20 Nucleat RBC Rel Count 0.0 /100 WBC (0-0.5) 08/30/23 18:20 Neut # (Auto) 13.4 x10E3/uL (1.8-7.7) H 08/30/23 18:20 Lymph # (Auto) 0.6 x10E3/uL (1.00-4.8) L 08/30/23 18:20 [place] # (Auto) 0.3 x10E3/uL (0.0-0.8) 08/30/23 18:20 [...] pH 5.5 (5.0-9.0) 08/30/23 18:45 Ur Specific [place] 1.016 (1.001-1.030) 08/30/23 18:45 Urine Protein Negative [...] signed by Elliott Talley MD> 08/30/23 2334 [facility] Work Phone: 1([phone]) 416-176705-09-2024 History of Present illness Narrative* Ky Navarro [...] m (5' 10.5 ) documented in this [facility] Work Phone: 1([phone]) [phone] Procedure noteK[facility]04-19-2024 History of Present illness Narrative* Antonio Steele [...] been seen in the past by the [facility] but elected to change because of convenience. He denies complaint of chest pain, palpitation, lightheadedness, dizziness or syncope. He does not describe history of hypothyroidism and sleep ap[facility] he had b een treated adequately. 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 BMI 35.0-35.9,adult Scribe Attestation By signing my name below, Shyann, Zo Ashly Smalls LPN attest that this documentation has been [...] exam, discussion and plan. documented in this encounterC[facility] Work Phone: 1([phone]) 522-512104-19-2024 Instructions* Patient Instructions* Zo Castro LPN - [...] Provided instructions on exercise. documented in [facility] encounterUnMartin [facility] Work Phone: 1(611) 132-137204-01-2024 Miscellaneous Notes* Telephone Encounter - Polly Magana [...] accordingly. Heladio Pineda MD documented in this encounterKind[facility]24 Miscellaneous Notes* Telephone Encounter - Korin Leyva [...] normal esr 9, crp<0.3; documented in this encounterKindred Hospital [facility]03-07-2024 Miscellaneous Notes* Telephone Encounter - Kamille Rosario RN - 06/14/2023 9:28 AM EST Pt calling in; states he is to have procedure with [facility] today but is experiencing fevers, vomiting, diarrhea. EP veterinary surgery technologist notified to call pt to cancel and reschedule. * Telephone Encounter - Georgia Harvey LPN - 06/14/2023 9:28 AM EST Called and spoke with pt, pt confirmed N/V/D and fever. Advised pt to call when symptoms resolve and will reschedule Pt stated he did miss Eliquis dose last night and no meds currently d/t vomiting. Will notify [facility] encounterGal[facility]03-[facility] Telephone encounter Note* Telephone Encounter - Kamille Rosario RN - 06/14/2023 9:28 AM EST Pt calling in; states he is to have procedure with [facility] today but is experiencing fevers, vomiting, diarrhea. EP veterinary surgery technologist notified to call pt to cancel and reschedule. [facility]-07-[facility] Telephone encounter Note* Telephone Encounter - Georgia Harvey LPN - 06/14/2023 9:28 AM EST Called and spoke with pt, pt confirmed N/V/D and fever. Advised pt to call when symptoms resolve and will reschedule Pt stated he did miss Eliquis dose last night and no meds currently d/t vomiting. Will notify [facility]03-05-2024 Miscellaneous Notes* Telephone Encounter - Bharti Milian RN - 06/12/2023 5:10 PM EST Called patient with [facility]'s response to start Magnesium Oxide 400 twice a day by mouth. Patient agreeable and wants RX sent to [facility]. Rx sent to sign. Has some at home and will start tonight. tkm ----- Message from Chhaya Whatley MD sent at 06/12/2023 4:40 PM EST ----- Please have patient start taking magnesium oxide 400 mg twice a day. Thank you Dirk documented in this encounterGalion Hospital03-05-2024 Telephone encounter Note* Telephone Encounter - Bharti Milian RN - 06/12/2023 5:10 PM EST Called patient with [facility]'s response to start Magnesium Oxide 400 twice a day by mouth. Patient agreeable and wants RX sent to [facility]. Rx sent to sign. Has some at home and will start tonight. tkm ----- Message from Chhaya Whatley MD sent at 06/12/2023 4:40 PM EST ----- Please have patient start taking magnesium oxide 400 mg twice a day. Thank you Dirk [facility]03-04-2024 Miscellaneous Notes* Telephone Encounter - Ambar Figueroa LPN - 06/11/2023 3:23 PM EST Images from the original note were not included. [facility]: Cardioversion or DFT Testing Procedure: Cardioversion Physician: Dr. Dirk Whatley Date/Time of Procedure: 06/13 @ 1 pm Arrival Time: 12 pm Hospital: [facility] - Address: [address] [place] [id number] Registration Location: [place] at Entrance C, parking lot P3 PRE OP REQUIREMENTS Below MUST be completed prior to your procedure or it may result in delay or cancellation [] Pre op testing: NONE [x] Pre op labs: Draw pre op labs any time between and at [facility], no paper orders are required, your [...] 7am Other Instructions: [x] Must have a uke driver as you will be unable to drive following the procedure IMPORTANT INFORMATION Notify the EP Surgery office of any illness, infection or COVID symptoms or a COVID positive resultimmediately at [phone] If you take a blood thinner, unless [...] schedule changes or emergencies at the hospital [facility] currently allows up to two visitors at [...] you by the EP Surgery nurses. [facility] [employer] instructions can be incorrect and provide the wrong information about your procedure. If you have any questions or concerns about preparing for your procedure, please call the EP Surgery office at [phone] For additional questions and to schedule any follow up appointments please call the main [facility] Cardiology office at [phone] documented in this encounterGalion Hospital03-04-2024 Telephone encounter Note* Telephone Encounter - Ambar Figueroa LPN - 06/11/2023 3:23 PM EST Images from the original note were not included. [facility]: Cardioversion or DFT Testing Procedure: Cardioversion Physician: Dr. Dirk Whatley Date/Time of Procedure: 06/13 @ 1 pm Arrival Time: 12 pm Hospital: [facility] - Address: [address] [place] [id number] Registration Location: [place] at Entrance C, parking lot P3 PRE OP REQUIREMENTS Below MUST be completed prior to your procedure or it may result in delay or cancellation [] Pre op testing: NONE [x] Pre op labs: Draw pre op labs any time between and at any [facility], no paper orders are required, your [...] 7am Other Instructions: [x] Must have a uke driver as you will be unable to drive following the procedure IMPORTANT INFORMATION Notify the EP Surgery office of any illness, infection or COVID symptoms or a COVID positive resultimmediately at [phone] If you take a blood thinner, unless [...] schedule changes or emergencies at the hospital [facility] currently allows up to two visitors at [...] you by the EP Surgery nurses. [facility] [employer] instructions can be incorrect and provide the wrong information about your procedure. If you have any questions or concerns about preparing for your procedure, please call the EP Surgery office at [phone] For additional questions and to schedule any follow up appointments please call the main [facility] Cardiology office at [phone] [phone] Miscellaneous Notes* Telephone Encounter - Ambar Figueroa [...] not hold any medication, pamela done at [facility] by me. Diagnosis persistent atrial fibrillation. History: [...] AFib. Thank you Dirk documented in this encounterGalion Hospital02-26-2024 Telephone encounter Note* Telephone Encounter - Ambar Figueroa LPN - 06/04/2023 3:05 PM EST [facility] is requesting a CDVN for this pt, please review and advise thank you. [facility]02-26-2024 Telephone encounter Note* Telephone Encounter - Chhaya [...] not hold any medication, pamela done at [facility] by me. Diagnosis persistent atrial fibrillation. History: [...] in management of AFib. Thank you [facility] Work Phone: [phone] History of Present illness Narrative* Sarai Velasco MD - 06/04/2023 2:15 PM EST Esme Bryant Yamilex Date of visit: 06/04/2023 Date of : 1960 Age: 62 y.o. 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 Hypertension Nonrheumatic mitral (valve) insufficiency Hyperlipidemia Other transient cerebral ischemic attacks and related syndromes Obstructive sleep apnea Dizziness Severe obesity (BMI 35.0-39.9) with comorbidity ([facility]) Coronary artery disease involving [place] coronary artery of [place] heart without angina pectoris Atrial fibrillation Allergies [...] 04/18/2023 Coronary Artery Disease Hypertension Atrial Fibrillation [facility] Follow-up History of Present Illness Patient [...] coronary artery bypass graft with angina pectoris ([facility]) Heart failure ([facility] [place] [place] Hyperlipidemia Hypertension Meniere disease Myocardial infarction ([facility]) Nonrheumatic mitral (valve) insufficiency Obstructive sleep apnea Other transient cerebral ischemic attacks and related syndromes No data recorded No data recorded No data recorded Past Surgical History: Procedure Laterality Date APPENDECTOMY BACK SURGERY Coronary angiogram + graft/[place] N/A 02/03/2020 Performed by John Talavera MD at [facility] CARDIAC CATH LABS CORONARY ARTERY [...] completed IMPRESSIONS/PLAN 1. Coronary artery disease involving [place] coronary artery of [place] heart without angina pectoris - POCT EKG [...] BROWER DO Referring Physician: Vitaliy Brower DO [facility] [place] [address] documented in this encounterSt. Vincent HospitalFanFound [id number] Instructions* Patient Instructions* Zhane Ceja RN - 06/04/2023 2:15 PM EST Pt needs scheduled for cardioversion at [facility] next week. He has been on eliquis without missing any doses. Thx slm documented in this encounterSt. Vincent HospitalLab21 [facility] [id number] Miscellaneous Notes* Telephone Encounter - Melinda Gomes CMA - 06/01/2023 3:32 PM EST Called patient to remind them to bring their most current copy of their medication list with them to their appt. Patient verbalizes understanding. documented in this encounterSt. [facility] Hospital2threads02-23-2024 Telephone encounter Note* Telephone Encounter - Melinda Gomes CMA - 06/01/2023 3:32 PM EST Called patient to remind them to bring their most current copy of their medication list with them to their appt. Patient verbalizes understanding. [facility] Evaluation note* Encounter Date Diagnosis Assessment Notes Treatment Notes Treatment Clinical Notes May, Acute pain of left knee (ICD-10 - M25.562) [facility] 02-12-2024 Evaluation note* Encounter Date Diagnosis [...] Pain of left calf (ICD-10 - M79.662) [facility] 02-07-2024 Evaluation note* Encounter Date Diagnosis Assessment Notes Treatment Notes Treatment Clinical Notes May, Aftercare following joint replacement surgery (ICD-10 - Z47.1) May, Presence of right artificial hip joint (ICD-10 - Z96.641) May, S/P total left hip arthroplasty (ICD-10 - Z96.642) May, Other [facility] at [facility] on 02/13/2023 At this point he is doing really well with the actual hip. We talked about being more aggressive and going to surgery to close this wound but the patient was recently diagnosed with atrial fibrillation. In my discussions with anesthesiology this would need to be worked up and evaluated by the rn testing before considering a surgery unless it was an emergency. At this point I do not feel it is actively infected so I do not feel it is a emergent surgery. He does see [facility] in [place] on 06/04/2023. Our plan at this time is to continue with the wound VAC with home health nursing who will come back on Sunday to put the wound VAC back on. I will then plan to see him in about 3 weeks which would be a day or 2 after he has seen his rn testing. At that point in time we will make a decision on the wound. If it is continuing to heal up and closed with the assistance of the wound VAC that is fantastic but if it still needs help then we will be aggressive at that time as long as his rn testing allows. Discussed post-op dental prophylaxis. Shared decision made to continue prophylactic antibiotics indefinitely. [facility] 01-29-2024 Evaluation note* Encounter Date Diagnosis [...] sometime in November to further discuss surgery. [facility] 01-24-2024 Evaluation note* Encounter Date Diagnosis [...] are maintaining regular scheduled appts with their rn testing. He understands that he must have surgery postponed for 4 wks for the new onset AFib. and postpone for 4-7 wks for COVID infection. Apr, Hypomagnesemia (ICD-10 - E83.42) Replace Magnesium w/ supplements Decrease Alcohol use. Recheck prior to any restortation of sinus rhythm [facility] 01-10-2024 NoteXR CHEST 1 VW Procedure: Chest x-ray performed Number of views:AP portable erect History:Palpitations, A. fib Comparison:07/18/2014 Findings: The heart and lungs show no acute findings, and the mediastinum and yue are grossly negative . There is a median sternotomy Impression: No acute change. Finalized by Sandra Barba DO on 04/18/2023 1:14 [facility] 04-18-2023 Miscellaneous Notes* Telephone Encounter [...] left and told him to call his rn testing. Pt not dyspneic. Does have some dizzy symptoms. Pt not on any blood thinners. Instructed to go to ER for evaluation documented in this encounterGalion Hospital01-10-[facility]24 Telephone encounter Note* Telephone Encounter - Florence [...] left and told him to call his rn testing. Pt not dyspneic. Does have some dizzy symptoms. Pt not on any blood thinners. Instructed to go to ER for evaluation [facility])[id number] Evaluation note* Encounter Date Diagnosis Assessment Notes [...] or dyspnea, instructed to go to ER [facility] 01-03-2024 Evaluation note* Encounter Date Diagnosis [...] will call us to get in sooner. [facility] 12-28-2023 Evaluation note* Encounter Date Diagnosis [...] and acute blood loss anemia are contributing [facility] 12-21-2023 Evaluation note* Encounter Date Diagnosis Assessment Notes Treatment Notes Treatment Clinical Notes Mar, Aftercare following joint replacement surgery (ICD-10 - Z47.1) Mar, Presence of right artificial hip joint (ICD-10 - Z96.641) Mar, S/P total left hip arthroplasty (ICD-10 - Z96.642) Mar, Other [facility] at [facility] on 02/13/2023 Overall he is doing [...] continue increasing activities as tolerated. Continue taking dghe-dbc-jbxzmto anti-inflammatorie s as needed for assistance with swelling and pain associated with the operative extremity. [facility] 12-07-2023 Evaluation note* Encounter Date Diagnosis [...] in the office today and providing supervision. [facility] 12-07-2023 Evaluation note* Encounter Date Diagnosis [...] answered to the best of my ability. [facility] 12-04-2023 Evaluation note* Encounter Date Diagnosis Assessment Notes Treatment Notes Treatment Clinical Notes Mar, Primary osteoarthritis 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 (ICD-10 - M16.11) [facility] 11-29-2023 Miscellaneous Notes* Telephone Encounter - [...] to My Chart if tests completed at [facility]: normal labs and no inflammation. Continue same [...] normal esr 9, crp<0.3; documented in this encounterKindred Hospital Lima11-29-2023 Evaluation note* Encounter Date Diagnosis Assessment Notes Treatment Notes Treatment Clinical Notes Feb, Aftercare following joint replacement surgery (ICD-10 - Z47.1) Feb, Presence of right artificial hip joint (ICD-10 - Z96.641) Feb, S/P total left hip arthroplasty (ICD-10 - Z96.642) Feb, Other C R PETER 2022 Patient is still progressing [...] follow-up appointments based on that incision check. [facility] 11-27-2023 History of Present illness Narrative* [...] no Dactylitis: no H/o precedent/frequent infection(s): no Enthesopathy/Keno's/heel/plantar tenderness: no Skin thickening, psoriasis, photosensitivity, purpura: no Nail changes: no Alpecia, patchy: no Eye inflammation: glasses SICCA: no Oral/nasal/genital ulcers: no GI problems-diarrhea/bleeding/IBD/Gluten intolerence/Dysphagia: occasionally gerd Raynaud's phenomenon/digital ulcers: no Organ inv-Serositis: no Lung disease/ILD: no Myopathy/proximal muscle weakness: no Abnormal Urine or urethritis: no Renal/liver disease: as above SENIOR COURT OFFICE ASSISTANT/PNS/sz/cva/cancer disease: no HEME-Cytopenias/LAD/Clots: no Fevers: no Fatigue: [...] great toe/start alloupurinol ~2007, left index finger tyler enamoradoruck 1979, Afib temporarily,S/p b/l TKR ~2012 bone [...] Beer (12oz) per week 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 Mild narrowing of the [...] touching your toes, sit-ups, using row machine nursing home pain recommendations per primary care provider/pain [...] video & audio (virtual) or phone or eqyu-np-luiv patient care, completing clinical documentation, obtaining and/or [...] cc Vitaliy Brower DO documented in this encounterKindred Hospital Lima11-26-2023 Instructions* Patient Instructions* Heladio Pineda MD - [...] touching your toes, sit-ups, using row machine nursing home pain recommendations per primary care provider/pain [...] Ab, Total Negative Negative documented in this encounterKindred Hospital Lima11-25-2023 Miscellaneous Notes* Telephone Encounter - Heladio Pineda [...] MD * Telephone Encounter - Leo Prince KAE - 03/02/2023 11:34 AM EST Most recent Rheumatology visit: 01/05/2023 (with Heladio Pineda) Recent Office Visits - This Specialty 01/05/2023 PMR (polymyalgia rheumatica) ([facility]) Rheumatology Heladio Pineda MD 11/17/2013 Wrist arthritis [facility] Conley 10/29/2013 Pseudogout Rheumatology Tracy Conley Upcoming Rheumatology Appointments - Next 365 Days Visit Type Date Time Department [facility] 03/05/2023 2:00 PM [facility] CBC: CBC Latest Ref Rng [...] diagnoses: Vitamin B12 deficiency documented in this encounterKindred Hospital Lima11-22-2023 Evaluation note* Encounter Date Diagnosis Assessment Notes [...] total left hip arthroplasty (ICD-10 - Z96.642) [facility] 10-27-2023 Evaluation note* Encounter Date Diagnosis [...] patient could proceed with surgery safely. The surgical manager was vital for surgery timing and [...] plans. Prolonged services time spent: 34 minutes [facility] 10-25-2023 Evaluation note* Encounter Date Diagnosis Assessment Notes Treatment Notes Treatment Clinical Notes Jan, Primary osteoarthritis 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 (ICD-10 - M16.11) Jan, Other 1. Right PETER Home Medications - DVT prophylaxis: Aspirin - NSAID: Home prednisone - Disposition: Same-day discharge Joints Meeting Checklist - Pharmacy: [facility] to bed - Approach/Technique: anterior, Pyatt bed - Implants: Avenir Complete/G7; - Anesthesia: general vs spinal - Blocks: Fascia iliaca - Preop Antibiotics: Ancef and Vanco - TXA: yes-systemic - Positioning/OR Bed: supine on Pyatt bed - Intraop X-ray: yes - Otoole: [...] above surgery. OARRS report generated and reviewed. [facility] 10-18-2023 Evaluation note* Encounter Date Diagnosis [...] w/ plan to start MTX after surgery [facility] 10-05-2023 Miscellaneous Notes* Telephone Encounter - Melany Pearson MA - 01/11/2023 8:43 AM EDT Spoke to pt aware of results and recommendations. * Telephone Encounter - Heladio Pineda MD - 01/10/2023 5:14 PM EDT Please Call patient if MyChart note not read to review results/released to My Chart if tests completed at [facility]: Mildly Low vitamin D maybe associated with fatigue/joint/muscle pain. Start vitamin D 4000 International Units daily with food. Mildly Low vitamin b12- maybe associated with fatigue, may start over the counter vitamin [id number] daily by mouth or notify office if [...] hepatitis panel, quantiferon tb; documented in this encounterKindred Hospital Lima09-29-2023 Instructions* Patient Instructions* Heladio Pineda MD - [...] touching your toes, sit-ups, using row machine tellers supervisor pain recommendations per primary care provider/pain clinic [...] your usual activities immediately. documented in this encounterKindred Hospital Lima09-29-2023 History of Present illness Narrative* Heladio Pineda MD - 01/05/2023 11:31 AM EDT NEW CONSULT:RHEUMATOLOGY SERVICE SERVICE DATE: 01/05/2023 SERVICE TIME: 11:31 AM REASON FOR CONSULT: joint pain 2nd opinion REQUESTING PHYSICIAN: Dr.Benjamin Inocente DO PRIMARY CARE PHYSICIAN: Vitaliy Brower DO Patient's Name: Esme Steven [address] [place], [place] [id number] Accompanied by: self This consult was requested for my medical opinion regarding the rheumatologic evaluation of the patient's joint pain problems, and my final recommendations will be communicated to the requesting health care provider by way of the shared medical record for internal providers or letter via the [facility] [employer] for external providers. January 05, [...] or urethritis: no Renal/liver disease: as above SENIOR COURT OFFICE ASSISTANT/PNS/sz/cva/cancer disease: no HEME-Cytopenias/LAD/Clots: no Fevers: no Fatigue: [...] FAMILY HISTORY: brother-brain aneurysm;mother- pacemaker;maternal GM/mother had TB;1993 L4-5 and SIsurgery from construction injury, no [...] xrays-Marked triscaphe joint space narrowing bilaterally with nhkp-qv-zdkp contact andsubchondral sclerosis. 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 Steven's ASA to his rn testing, but guidelines favor continuing without interruption, if [...] E06.3) Clinically euthyroid, continue treatment without interruption [facility] 09-19-2023 Evaluation note* Encounter Date Diagnosis [...] Dec, Multiple joint pain (ICD-10 - M25.50) [facility] 08-17-2023 Evaluation note* Encounter Date Diagnosis Assessment Notes Treatment Notes Treatment Clinical Notes Nov, Pseudogout (ICD-10 - M11.20) [facility] 08-16-2023 Evaluation note* Encounter Date Diagnosis Assessment Notes Treatment Notes Treatment Clinical Notes Nov, Primary osteoarthritis 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 (ICD-10 - M16.11) [facility] 08-15-2023 Evaluation note* Encounter Date Diagnosis [...] refer to Heladio Pineda for rheumatology consult [facility] 08-07-2023 Evaluation note* Encounter Date Diagnosis [...] (ICD-10 - Z12.5) Yearly MELBA and PSA [facility] 07-19-2023 Evaluation note* Encounter Date Diagnosis Assessment Notes Treatment Notes Treatment Clinical Notes Oct, Superficial ulcer of lower extremity (ICD-10 - L97.909) Cleanse w/ soap and water. Elevate as much as possible. No improvement, refer to wound clinic Oct, Cellulitis of left lower extremity (ICD-10 - L03.116) Keep clean, elevate and use Mupirocin bid. Begin antibiotics. [facility] 06-27-2023 Evaluation note* Encounter Date Diagnosis [...] palpitations or lightheadedness He completed evaluation w/ Railway Traction Line Worker w/o changes Instructed to avoid use of Nitroglycerine w/ Sildenafil. Instructed to avoid use if develop CP, palpitations or lightheadedness [facility] 06-21-2023 Evaluation note* Encounter Date Diagnosis Assessment Notes Treatment Notes Treatment Clinical Notes Sep, FER (obstructive sleep apnea) (ICD-10 - G47.33) AHI 25, Psat 80% [facility] 06-21-2023 Evaluation note* Encounter Date Diagnosis Assessment Notes Treatment Notes Treatment Clinical Notes Sep, FER (obstructive sleep apnea) (ICD-10 - G47.33) AHI 35 [facility] 05-03-2023 Evaluation note* Encounter Date Diagnosis [...] recurrent major depressive disorder (ICD-10 - F33.0) [facility] 05-01-2023 Evaluation note* Encounter Date Diagnosis [...] note writ ten by Kevyn Corona MA, Nutrition Helper. Edited and approved by Dr. Jonathan Samano MD. [facility] 04-25-2023 Evaluation note* Encounter Date Diagnosis Assessment Notes Treatment Notes Treatment Clinical Notes Jul, Myalgia (ICD-10 - M79.10) [facility] 04-24-2023 Evaluation note* Encounter Date Diagnosis Assessment Notes Treatment Notes Treatment Clinical Notes Jul, Right shoulder pain (ICD-10 - M25.511) [facility] 04-21-2023 Evaluation note* Encounter Date Diagnosis [...] Jul, Other specified hypothyroidism (ICD-10 - E03.8) 21 Apr, 2023 Autoimmune thyroidit is (ICD-10 - E06.3) DUe [...] of yearly testing Sent order to complete [facility] 03-28-2023 Evaluation note* Encounter Date Diagnosis [...] left shoulder, initial encounter (ICD-10 - S40.012A) [facility] 02-27-2023 Evaluation note* Encounter Date Diagnosis [...] Other Above note writ ten by Jeff Niteo LPN, Nutrition Helper. Edited and approved by Dr. Jonathan Samano MD. [facility] 02-27-2023 Evaluation note* Encounter Date Diagnosis [...] the injection well with no adverse reaction. [facility] 02-20-2023 Evaluation note* Encounter Date Diagnosis [...] to continue exercise and AHA diet plan. [facility] 02-14-2023 Evaluation note* Encounter Date Diagnosis Assessment Notes Treatment Notes Treatment Clinical Notes May, Tongue ulceration (ICD-10 - K14.0) Magic Mouth Wash qid. Refer to ENT May, Hoarseness of voice (ICD-10 - R49.0) Refer to ENT May, Odynophagia (ICD-10 - R13.10) Refer to ENT [facility] 01-04-2023 Evaluation note* Encounter Date Diagnosis [...] note writ ten by Jeff Nieto LPN, Nutrition Helper. Edited and approved by Dr. Jonathan Samano MD. [facility] 11-30-2022 Evaluation note* Encounter Date Diagnosis [...] note writ ten by Jeff Nieto LPN, Nutrition Helper. Edited and approved by Dr. Jonathan Samano MD. [facility] 11-09-2022 Evaluation note* Encounter Date Diagnosis [...] and tingle for hours after this injection. [facility] 11-07-2022 Evaluation note* Encounter Date Diagnosis [...] note writ ten by Jeff Nieto LPN, Nutrition Helper. Edited and approved by Dr. Jonathan Samano MD. [facility] 06-22-2022 Evaluation note* Encounter Date Diagnosis Assessment Notes Treatment Notes Treatment Clinical Notes Sep, Primary osteoarthritis 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 (ICD-10 - M16.11) Sep, Primary osteoarthritis of left hip (ICD-10 - M16.12) Sep, S/P total left hip arthroplasty (ICD-10 - Z96.642) Sep, Other [facility] at [facility] on 07/04/2021 Doing well. Again discussed [...] to call with any questions or concerns. [facility] 06-06-2022 Evaluation note* Encounter Date Diagnosis Assessment Notes Treatment Notes Treatment Clinical Notes Sep, Right hand pain (ICD-10 - M79.641) Sep, Arthritis of right hand (ICD-10 - M19.041) Right long finger MCP joint injected with cortisone under sterile technique, patient tolerated well. Will discuss surgical options with Dr Nichole [facility] 05-11-2022 Evaluation note* Encounter Date Diagnosis Assessment Notes Treatment Notes Treatment Clinical Notes August, Primary osteoarthritis 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 (ICD-10 - M16.11) August, Primary osteoarthritis of left hip (ICD-10 - M16.12) August, S/P total left hip arthroplasty (ICD-10 - Z96.642) August, Other [facility] at [facility] on 07/04/2021 Doing well Patient may continue increasing activities as tolerated. Continue taking jlvv-eiv-dutmryj anti-inflammatori es as needed for assistance with swelling and pain associated with the operative extremity. Follow-up in 6 weeks for repeat examination and repeat x-rays. [facility] 04-13-2022 Evaluation note* Encounter Date Diagnosis Assessment Notes Treatment Notes Treatment Clinical Notes Jul, Primary osteoarthritis 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 (ICD-10 - M16.11) Jul, Primary osteoarthritis of left hip (ICD-10 - M16.12) Jul, Other [facility] at [facility] on 07/04/2021 Doing well. Steri-Strips applied. [...] off narcotic pain medication. They can take lylg-ghp-gvqyoja anti-inflammatories as needed for assistance with swelling [...] shoe for his standing weightbearing pelvis x-ray. [facility] 03-18-2022 Evaluation note* Encounter Date Diagnosis [...] patient could proceed with surgery safely. The surgical manager was vital for surgery timing and [...] echo and a heart cath by his rn testing. He was then cleared from a cardiology standpoint. Any recommendations made by these care providers were taken into consideration for the patient's perioperative and postoperative treatment plans. Prolonged services time spent: 33 minutes [facility] 03-11-2022 Evaluation note* Encounter Date Diagnosis [...] postoperative period Joints Meeting Checklist - Pharmacy: [facility] to bed - Approach/Technique: anterior, Pyatt bed - Implants: Avenir Complete/G7; - Anesthesia: general - Blocks: Fascia iliaca - Preop Antibiotics: Ancef - TXA: yes-systemic - Positioning/OR Bed: supine on Pyatt bed - Intraop X-ray: yes - Otoole: [...] elected to proceed with the above surgery. [facility] 11-16-2021 Evaluation note* Encounter Date Diagnosis [...] note writ ten by Erica Valenzuela CMA, Nutrition Helper. Edited and approved by Dr. Jonathan Samano MD. [facility] Other 09-29-2021 Evaluation note* Encounter Date Diagnosis [...] note writ ten by Erica Valenzuela CMA, Nutrition Helper. Edited and approved by Dr. Jonathan Samano MD. [facility] Other Evaluation note* Diagnosis Swelling of knee joint- Primary Effusion of lower leg joint documented in this encounter [facility]imaEvaluation noteNo InformationNortHoly [facility] Other Evaluation noteNo assessment information available [facility] Work Phone: Evaluation note* Diagnosis PMR [...] Bilateral hand swelling documented in this encounter [facility]imaEvaluation note* Diagnosis PMR (polymyalgia rheumatica) (HCC)- Primary Polymyalgia rheumatica Elevated sed rate Elevated sedimentation rate Elevated C-reactive protein (CRP) Vitamin D deficiency Unspecified vitamin D deficiency Vitamin B12 deficiency Other B-complex deficiencies documented in this encounter [facility]imaEvalutr[facility] health note* Diagnosis PMR (polymyalgia rheumatica) (HCC)- Primary [...] Pain in limb documented in this encounter [facility]* Diagnosis PMR (polymyalgia rheumatica) (HCC)- Primary Polymyalgia rheumatica Elevated sed rate Elevated sedimentation rate Elevated C-reactive protein (CRP) documented in this encounter [facility]ima[facility] note* Diagnosis Steroid-induced osteoporosis Other osteoporosis documented in this encounter [facility]imaEvalut[facility] note* Diagnosis Onset Date Resolution Status Aftercare following hip joint replacement surgery acute History of total replacement 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 acute Aftercare following hip joint replacement surgery acute History of total replacement 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 acute ASHD (arteriosclerotic heart disease) acute GENESIS (generalized anxiety disorder) acute Hyperlipidemia acute Hypertension acute Hypothyroidism acute [facility] Work Phone: Evaluation note* Diagnosis PMR (polymyalgia rheumatica) (HCC)- Primary Polymyalgia rheumatica Elevated sed rate Elevated sedimentation rate Elevated C-reactive protein (CRP) Vitamin D deficiency Unspecified vitamin D deficiency [facility] Persistent atrial fibrillation (Multi)- Primary Atrial fibrillation Multi-vessel coronary artery stenosis Cardiomyopathy, ischemic Other specified forms of chronic ischemic heart disease Mixed hyperlipidemia 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 (Multi) Atrial fibrillation Status post aorto-coronary artery bypass graft 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 BMI 35.0-35.9,adult documented in this encounter [facility] Work Phone: Evaluation note* Diagnosis Onset Date Resolution Status Aftercare following hip joint replacement surgery acute History of total replacement 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 acute Aftercare following hip joint replacement surgery acute History of total replacement 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 acute ASHD (arteriosclerotic heart disease) acute Atrial fibrillation acute GENESIS (generalized anxiety disorder) acute Hypertension acute [facility] Work Phone: Evaluation note* Diagnosis 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 (Multi) Atrial fibrillation documented in this encounter [facility] Work Phone: Evaluation note* Diagnosis Onset [...] acute SIRS (systemic inflammatory response syndrome) acute [facility] Work Phone: Evaluation note* Diagnosis Onset [...] acute SIRS (systemic inflammatory response syndrome) acute [facility] Work Phone: Evaluation note* Diagnosis PMR (polymyalgia rheumatica) ([facility])- Primary Polymyalgia rheumatica Elevated sed rate Elevated sedimentation rate Elevated C-reactive protein (CRP) [facility] Diagnosis Onset Date Resolution Status Aftercare following hip joint replacement surgery acute History of total replacement 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 acute ASHD (arteriosclerotic heart disease) acute GENESIS (generalized anxiety disorder) acute Acute diverticulitis acute Acute diverticulitis acute ASHD (arteriosclerotic heart disease) acute Inflammatory polyarthritis a cute Persistent atrial fibrillation acute Primary hypertension acute [facility] Work Phone: Evaluation note* Diagnosis 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 (tophi) Hyperuricemia Other abnormal blood chemistry [facility] Diagnosis Onset Date Resolution Status Acute diverticulitis acute Elevated lactic acid level r esolved Acute diverticulitis acute ASHD (arteriosclerotic heart disease) acute Inflammatory polyarthritis a cute Persistent atrial fibrillation acute Primary hypertension acute Biceps tendonitis on right a cute Rotator cuff syndrome of right shoulder acute Traumatic complete tear of left rotator cuff acute [facility] Work Phone: Evaluation note* Diagnosis Onset [...] of colon noneactive Wellness examination noneact mallory [facility] Work Phone: Evaluation note* Diagnosis Elevated sed rate Elevated sedimentation rate Elevated C-reactive protein (CRP) PMR (polymyalgia rheumatica) (HCC) Polymyalgia rheumatica [facility] Diagnosis Onset Date Resolution Status Biceps [...] diverticulitis of colon noneactive Wellness examination noneact [facility] Work Phone: Evaluation note* Diagnosis Onset Date Resolution Status Acute right flank pain acute ASHD (arteriosclerotic heart disease) acute Atrial fibrillation acute GENESIS (generalized anxiety disorder) acute Gastroesophageal reflux dise ase with esophagitis without hemorrhage acute Hypercholesterolemia acute Hypothyroid acute FER (obstructive sleep apnea) acute Primary hypertension acute Screening PSA (prostate specific antigen) noneactive H/O diverticulitis of colon noneactive Wellness examination noneact [facility] Work Phone: Evaluation note* Diagnosis Atrial fibrillation, unspecified type (Multi) Preoperative examination Unspecified pre-operative examination Presence of Watchman left atrial appendage closure device Atrial fibrillation, unspecified type (Multi) Presence of Watchman left atrial appendage closure device documented in this encounter [facility] Work Phone: Evaluation note* Diagnosis Onset [...] noneact mallory Primary osteoarthritis, right hand acute [facility] Work Phone: Evaluation note* Diagnosis Persistent atrial fibrillation (Multi)- Primary Atrial fibrillation Status post aorto-coronary artery bypass graft Presence of Watchman left atrial appendage closure device Multi-vessel coronary artery stenosis Mixed hyperlipidemia Cardiomyopathy, ischemic Other specified forms of chronic ischemic heart disease Dilated aortic root (CMS-HCC) Thoracic aneurysm without mention of rupture Never smoked cigarettes BMI 35.0-35.9,adult documented in this encounter [facility] Work Phone: Evaluation note* Diagnosis Persistent atrial fibrillation (Multi)- Primary Atrial fibrillation Status post aorto-coronary artery bypass graft Mixed hyperlipidemia Cardiomyopathy, ischemic Other specified forms of chronic ischemic heart disease Multi-vessel coronary artery stenosis BMI 35.0-35.9,adult Never smoked cigarettes documented in this encounter [facility] Work Phone: Evaluation note* Diagnosis 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 (Multi)- Primary Atrial fibrillation Persistent atrial fibrillation (Multi) Atrial fibrillation documented in this encounter [facility] Work Phone: Evaluation note* Diagnosis Persistent atrial fibrillation (CMS-HCC)- Primary Atrial fibrillation Coronary artery disease involving [place] coronary artery of [place] heart without angina pectoris documented [facility] Diagnosis Hypomagnesemia- Primary Disorders of magnesium metabolism documented [facility] Diagnosis Atrial fibrillation, unspecified type (Multi) documented in this encounter [facility] Work Phone: Evaluation note* Diagnosis PMR (polymyalgia rheumatica) ([facility])- Primary Polymyalgia rheumatica Elevated LFTs Other abnormal [...] multiple joints Other disorder of calcium metabolism 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 Encounter for [...] of high-risk medication [facility] Diagnosis 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 (tophi) Vitamin D deficiency Unspecified vitamin D deficiency Elevated LFTs Other abnormal blood chemistry Anemia of chronic disease Anemia of other chronic disease Hyperuricemia Other abnormal blood chemistry [facility] Diagnosis Persistent atrial fibrillation (Multi)- Primary Atrial fibrillation Multi-vessel coronary artery stenosis Status post aorto-coronary artery bypass graft Mixed hyperlipidemia Dilated aortic root Thoracic aneurysm without mention of rupture Cardiomyopathy, ischemic Other specified forms of chronic ischemic heart disease Presence of Watchman left atrial appendage closure device BMI 32.0-32.9,adult Never smoked cigarettes documented in this encounter [facility] Work Phone: Evaluation note* Diagnosis Idiopathic [...] hip pain, bilateral [facility] Diagnosis Pseudogout involving multiple joints- Primary [...] bilateral Rotator cuff arthropathy of left shoulder 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 Encounter for long-term (current) use of steroids Bilateral hand swelling Chronic pain of both knees Leg weakness, bilateral Other musculoskeletal symptoms referable to limbs Chronic bilateral low back pain without sciatica Bilateral knee swelling Effusion of lower leg joint [facility]* Diagnosis Persistent atrial fibrillation (Multi)- Primary Atrial fibrillation Multi-vessel coronary artery stenosis Status post aorto-coronary artery bypass graft Presence of Watchman left atrial appendage closure device Mixed hyperlipidemia Dilated aortic root Thoracic aneurysm without mention of rupture Cardiomyopathy, ischemic Other specified forms of chronic ischemic heart disease Never smoked cigarettes BMI 32.0-32.9,adult documented in this encounter [facility] Work Phone: History and physical note Author Elliott Talley [facility] August 30, 2023 11:34pm Note Date/Time August 30, 2023 11:[address] [facility] [address] [place] [address] Hospitalist H&P Signed Patient: Esme Steven MR#: [id number] : 1960 Acct:[id number] Age/Sex: 62 / M Adm Date: 4 Loc: Room: [address] [place] [address] Type: ADM IN Attending Dr: Elliott Talley [...] that which is noted above in HPI [facility] Medical History (Updated 08/30/23 @ 23:33 by [...] mg tablet,delayed release 81 mg PO DAILY IN prevention 01/29/17 [History Confirmed 08/30/23] atorvastatin 80 [...] % (Auto) 4.4 % (.) 08/30/23 18:20 [place] % (Auto) 2.3 % (.) 08/30/23 18:20 Eos % (Auto) 0.1 % (.) 08/30/23 18:20 Baso % (Auto) 0.8 % (.) 08/30/23 18:20 Nucleat RBC Rel Count 0.0 /100 WBC (0-0.5) 08/30/23 18:20 Neut # (Auto) 13.4 x10E3/uL (1.8-7.7) H 08/30/23 18:20 Lymph # (Auto) 0.6 x10E3/uL (1.00-4.8) L 08/30/23 18:20 [place] # (Auto) 0.3 x10E3/uL (0.0-0.8) 08/30/23 18:20 [...] pH 5.5 (5.0-9.0) 08/30/23 18:45 Ur Specific [place] 1.016 (1.001-1.030) 08/30/23 18:45 Urine Protein Negative [...] pink Documented By: Elliott Talley MD 4 2300 Signed By: <Electronically signed by Elliott Talley MD> 08/30/23 2330 [facility] Work Phone: History and physical note Author Mehrdad Mcmanus [facility] December 31, 2023 12:47pm Note Date/Time December 31, 2023 12:47pm [facility] [address] [place] [address] Gastroenterology H&P Signed Patient: Esme Steven MR#: [id number] : 1960 Acct:[id number] Age/Sex: 63 / M Adm Date: 4 Loc: Room: Type: [facility] Attending Dr: Mehrdad Mcmanus MD Copies to: [...] Mcmanus M.D. Documented By: Mehrdad Mcmanus MD 12/31/231245 Signed By: <Electronically signed by Mehrdad Mcmanus MD> 12/31/237 [facility] Work Phone: History and physical note Author Ada Valentin [facility] Note Date/Time October 01, 2024 1:[address] [facility] [address] [place] [address] Hospitalist H&P Signed Patient: Esme Steven MR#: [id number] : 1960 Acct:[id number] Age/Sex: 63 / M Adm Date: 5 Loc: Room: [address] [place] [address] Type: ADM INOo Attending Dr: Leidy Nuno DO Copies to: DO Ada Hannah APRN Yazid Hussein, DO~ HPI DATE OF EXAMINATION: 09/30/24 CHIEF COMPLAINT: Presyncope HISTORY OF PRESENT ILLNESS: Mr Esme Steven is a 63-year-old male with a past medical history of coronary artery disease with previous 4 vessel bypass surgery who underwent leftheart catheterization by Dr. Steele yesterday due to unstable angina with significant three-vessel coronary artery disease. He was discharged on isosorbide 30 mg daily and valsartan 40 mg daily, which he states were a new medications. He reports taking all his medications as prescribed and an hour later he felt lightheaded, blurry vision and thought he was going to pass out. According to his at bedside, she states that he has reacted in a similar manner after taking isosorbide in the past. Upon arrival, blood pressure was inthe 60s over the 40s. After receiving 1.5 L bolus has improved to 90/54 and he reports feeling better. He denies dizziness, lightheaded. Denies chest pain, shortness of breath or palpitations. Denies abdominal pain, nausea vomiting or diarrhea. He denies having any urinary symptoms, afebrile. Upon arrival to the ER, head CT obtained, results pending. CXR did not show anyacute cardiopulmonary findings. Creatinine 1.32. WBC 16.9. He was administered 1.5 L of normal saline. He will be admitted by the hospitalist team for further evaluation and management. Review of Systems Review of Systems Review of systems: A 10 point review of systems obtained, negative unless noted in the [facility] Source: Old Records Reviewed Medical History Vitamin D deficiency Macrocytosis without anemia Chest wall contusion Acute bronchitis due to other specified organisms Cough Diverticulitis Atrial fibrillation s/p LAAO procedure - 01/2024, Echo: LVEF 45%, CHARISSA, normal RV size/function - 08/2024, DCCV: 09/2024 Hypothyroid Hypercholesterolemia GENESIS (generalized anxiety disorder) ASHD (arteriosclerotic heart disease) Pseudogout Primary osteoarthritis 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 Primary hypertension Polymyalgia rheumatica FER (obstructive sleep apnea) Mild episode of recurrent major depressive disorder Lumbar spondylosis Inflammatory polyarthritis Hypomagnesemia Gastroesophageal reflux disease with esophagitis without hemorrhage History of left heart catheterization (LHC) x8 ASHD (arteriosclerotic heart disease) CABG x 4 - 2014, PCI/stent (prior to 2014) Bulging lumbar disc Osteoarthritis Gout BPH (benign prostatic hyperplasia) Hyperlipidemia Myocardial infarct x3 Mitral valve disorder Surgical History Presence of Watchman left atrial appendage closure device (~06/2024) H/O colonoscopy (~12/2023) 12/2022 polypectomy (repeat 5 years) S/P total right hip arthroplasty (~02/2023) S/P total left hip arthroplasty History of bilateral knee replacement History of vasectomy History of appendectomy History of lumbar surgery History of cardiac catheterization multiple S/P CABG x 4 2014 H/O heart artery stent prior to 2014 Family History Mother Heart disease Kidney stones Pacemaker Stroke Father H/O heart artery stent CAD (coronary artery disease) Brother Agent orange exposure Brother Brain aneurysm Social History Smoking Status: Former smoker Substance Use Type: Alcohol Substance Abuse Comment: 2-4 beers daily Meds Medications and Allergies Allergies No Known Allergies Allergy (Verified 09/30/24 14:24) Home Medications valacyclovir 500 mg tablet See Rx Instructions .Route .COMPLEX #90 tabs 12/24/23[Rx Confirmed 09/30/24] levothyroxine 150 mcg tablet See Rx Instructions .Route .COMPLEX #90 tabs 03/20/24 [Rx Confirmed 09/30/24] metoprolol succinate 50 mg tablet,extended release 24 hr See Rx Instructions .Route .COMPLEX #90 tabs 03/20/24 [Rx Confirmed 09/30/24] alprazolam 0.5 mg tablet 0.5 mg PO QHS 90 days #90 tabs 07/01/24 [Rx Confirmed 09/30/24] pantoprazole 40 mg tablet,delayed release 40 mg PO DAILY 90 days #90 tabs 07/01/24 [Rx Confirmed 09/30/24] aspirin 81 mg tablet 81 mg PO DAILY 09/08/24 [History Confirmed 09/30/24] spironolactone 25 mg-hydrochlorothiazide 25 mg tablet 1 tab PO DAILY 09/08/24 [History Confirmed 09/30/24] atorvastatin 80 mg tablet 80 mg PO QPM 30 days #30 tabs 09/29/24 [Rx Confirmed 09/30/24] isosorbide mononitrate 30 mg tablet,extended release 24 hr 30 mg PO QAM 30 days #30 tabs 09/29/24 [Rx Confirmed 09/30/24] magnesium oxide 400 mg (241.3 mg magnesium) tablet 400 mg PO DAILY 30 days #30 tabs 09/29/24 [Rx Confirmed 09/30/24] nitroglycerin 0.4 mg sublingual tablet 0.4 mg sublingual Q5M PRN Chest Pain 30 days #25 tabs 09/29/24 [Rx Confirmed 09/30/24] valsartan 40 mg tablet 40 mg PO DAILY 30 days #30 tabs 09/29/24 [Rx Confirmed 09/30/24] allopurinol 100 mg tablet 200 mg PO DAILY 09/30/24 [History Confirmed 09/30/24] Exam Physical Exam Vital Signs: Temp Pulse Resp BP Pulse Ox O2 Del Method 97.9 F 95 18 90/54 L 96 Room Air 09/30/24 14:11 09/30/24 15:45 09/30/24 15:45 09/30/24 15:45 09/30/24 15:45 09/30/24 15:45 Narrative: CONST-alert, awake, cooperative HEAD - Normocephalic and atraumatic EENT?Sclera nonicteric and conjunctive are nonerythemic, moist oral mucosa, pharynx clear NECK?Supple, no cervical lymphadenopathy CARDIAC?normal rate, regular rhythm, normal S1 & S2. PULM?diminished without wheeze or rhonchi, RA, no accessory muscle use or cough noted ABD ? Soft. Bowel sounds are normal. No distention No tenderness EXTREM?no edema BLE calves nontender SKIN? W/D good turgor MS- MAEX4 spontaneously with equal with equal strength NEURO? A&Ox3 speech clear and tongue midline, equal facial symmetry no focal motor deficits PSYCH?Mood, affect and behavior appropriate Results - Hospitalist H&P Lab Results Labs: Laboratory Last Values Corrected WBC 16.9 X10E3/uL (4.1-10.5) H 09/30/24 14:21 Uncorrected WBC Count 16.9 x10E3/uL (4.1-10.5) H 09/30/24 14:21 RBC 5.01 x10E6/uL (3.90-5.60) 09/30/24 14:21 Hgb 17.3 g/dL (13.0-17.0) H 09/30/24 14:21 Hct 51.1 % (38.8-50.0) H 09/30/24 14:21 MCV 101.9 fl (83.5-101) H 09/30/24 14:21 MCH 34.4 pg (27.5-35.2) 09/30/24 14:21 MCHC 33.8 g/dL (32.5-35.6) 09/30/24 14:21 RDW 14.0 % (12.0-14.8) 09/30/24 14:21 Plt Count 218 x10E3/uL (150-450) 09/30/24 14:21 MPV 9.8 fl (6.6-10.1) 09/30/24 14:21 Neut % (Auto) 83.8 % (.) 09/30/24 14:21 Lymph % (Auto) 11.5 % (.) 09/30/24 14:21 [place] % (Auto) 3.9 % (.) 09/30/24 14:21 Eos % (Auto) 0.2 % (.) 09/30/24 14:21 Baso % (Auto) 0.6 % (.) 09/30/24 14:21 Nucleat RBC Rel Count 0.1 /100 WBC (0-0.5) 09/30/24 14:21 Neut # (Auto) 14.2 x10E3/uL (1.8-7.7) H 09/30/24 14:21 Lymph # (Auto) 1.9 x10E3/uL (1.00-4.8) 09/30/24 14:21 [place] # (Auto) 0.7 x10E3/uL (0.0-0.8) 09/30/24 14:21 Eos # (Auto) 0.0 x10E3/uL (0.0-0.45) 09/30/24 14:21 Baso # (Auto) 0.1 x10E3/uL (0.0-0.2) 09/30/24 14:21 Monocyte Dist Width 22.40 % (0.00-20.00) H 09/30/24 14:21 PT 11.8 Seconds (9.0-12.9) 09/30/24 14:21 INR 1.0 06/24/25 14:21 PHA Creatinine Clear 66.94 09/30/24 14:21 Sodium 135 mmol/L (136-145) L 09/30/24 14:21 Potassium 4.0 mmol/L (3.5-5.1) 09/30/24 14:21 Chloride 101 mmol/L (98-107) 09/30/24 14:21 Carbon Dioxide 24.7 mmol/L (21.0-31.0) 09/30/24 14:21 Anion Gap 13.3 mEq/L (6.0-15.0) 09/30/24 14:21 BUN 17 mg/dL (7-25) 09/30/24 14:21 Creatinine 1.32 mg/dL (0.70-1.30) H D 09/30/24 14:21 Est GFR (CKD-EPI) > 60.0 mL/Min 09/30/24 14:21 Glucose 171 mg/dL (70-100) H 09/30/24 14:21 Calcium 9.3 mg/dL (8.6-10.3) 09/30/24 14:21 Total Creatine Kinase 18 U/L (30-223) L 09/30/24 14:21 Troponin I High Sens 12 ng/L (0-20) 09/30/24 14:21 B-Natriuretic Peptide 308.0 pg/mL (5-100) H 09/30/24 14:21 Assessment & Plan Assessment/Plan (1) MIESHA (acute kidney injury): (2) Blurred vision, bilateral: (3) Acute hypotension: Plan Presyncope Symptomatic hypotension CAD status post left heart catheterization 09/29 Presented with complaints of sudden onset of lightheadedness, blurry vision and almost passing out. He was noted to have significant hypotension with blood pressure in the 60s/40s. He reports having a similar incident of presyncope after taking isosorbide in the past. * Head CT did not show any acute intracranial abnormality * CXR did not show any acute cardiopulmonary * Urine pending collect * WBC 16.9, lactic acid 2.2, will hold off on starting antibiotics as there is no clear source of infection. Blood cultures pending * Will hold blood pressure medications and consult cardiology to review medications * Monitor CBC Elevated creatinine?likely due to hypotension, continue to monitor BMP DVT prophylaxis: Heparin IP vs OBS Justification Based on differential dx, clinical care plan, and risk of adverse events, if untreated, in my clinical judgement this patient requires an acute care setting as: OBSERVATION because of an expectation of an under 2 midnight stay. Estimated length of stay (# of days): 2 Documented By: Ada Valentin APRN 09/30/24 1604 Signed By: <Electronically signed by STEPHEN Valentin> 09/30/24 1653 <Electronically signed by Leidy Nuno DO> 10/01/24 1317 [facility] Work Phone: [facility] general Narrative - Reported* Type Description Date [...] Harmony willams 2012 Hospitalization History see above [place] Other [facility] general Narrative - Reported* Type Description Date [...] knee replacement 2013 Hospitalization History see above [place] Other [facility] general Narrative - Reported* Type Description Date [...] Harmony willams 2012 Hospitalization History see above [place] Other [facility] general Narrative - ReportedNoNovitas Other history general Narrative - Reported* Type [...] History LTHA 07/04/21 Hospitalization History see above [place] Other history general Narrative - Reported* Type [...] History LTHA 07/04/21 Hospitalization History see above [place] Other [email or web address] general Narrative - Reported* Type Description Date [...] History LTHA 07/04/21 Hospitalization History see above [place] Other [facility] general Narrative - Reported* Type Description Date [...] Surgical History double knee replacement Dr Harmony iwllams 2012 Surgical History Left PETER 07/04/21 Surgical History Right PETER 02/2023 Hospitalization History see above [place] Other history general Narrative - Reported* Type [...] 02/2023 Surgical History [facility] 05/2021 Surgical History [facility] w/ PTCA/stent 2005 Surgical History [facility] 2006 Surgical History [facility] 2008 Surgical History [facility] 2010 Surgical History [facility] w/ PTCA/stent 2013 Hospitalization History see above [place] Other Hospital Discharge instructions Additional Instructions Joint Replacement Discharge Instructions Your safety during your recovery process is important to us. Please seek immediate emergency care if you have sudden chest pain or shortness of breath. Additionally, please call our office at [phone] should any of the following occur: wound [...] to walk without your walker and your wound care specialist until the therapist checks you the following [...] and/or laxatives as directed. You may take [id number] Benadryl if itching occurs without a rash or hives. Icing and elevation will help relieve pain as well, do not underestimate the power of ice and elevation. We do recommend that you stop taking narcotic pain medications by 4-6 weeks after surgery and if necessary, continue to use anti-inflammatory medications such as Mobic (meloxicam), Celebrex (celecoxib), or an [id number] medication (Aleve, Motrin, Ibuprofen, etc). Driving an [...] feel free to call our office at [phone]. You are a priority of ours and we will not be upset with you if you call. We would much rather you call to confirm aspects of your recovery process as opposed to possibly hindering your recovery with inappropriate care. We are committed to providing you with the best care possible. Sarai Mendez II, MD Updated 06/23/2022[facility] Work Phone: Hospital Discharge instructions Additional Instructions Stop Eliquis on 09/16/2024[facility] Work Phone: InstructionsNot on filedocumented in this encounter [facility] filedocumented in this encounter [facility] filedocumented in this encounter [facility] on filedocumented in this encounter [facility] Author Sally Alex [facility] August 31, 2023 3:45pm Note Date/Time August 31, 2023 10:[address] [facility] [address] [place] [address] Hospitalist Progress Note Signed with Addenda Patient: Esme Steven MR#: [id number] : 1960 Acct:[id number] Age/Sex: 62 / M Adm Date: 4 Loc: Room: [address] [place] [address] Type: ADM IN Attending Dr: Sally Alex [...] signed by DO RADHA Zavala> 08/31/23 1054 [facility] Work Phone: Reason for referral (narrative)* Reason Referral for suspect ed PMR Known OA spine, hips, knees, hands Diagnosis 1 PMR (polymyalgia rhe umatica) (M35.3) Referral Organization [facility] faye Referring Provider First Name Vitaliy Referring Provider Last Name Inocente Referring Provider Specialty Internal Me dicine Referred Organization [facility] Referred Provider Sarai Georges Referred Address [address] [facility] [place],[address] Referral Priority Routine [place] Other Reason for referral (narrative)* Diagnostic Procedure Only (Routine) - Authorized Specialty Diagnoses / Procedures Referred By Contac t Referred To Contact XR IMAGING Diagnoses Steroid-induced osteoporosis Procedures DXA-FOREARM SKELETON DXA BONE DENSITY STUDY 1/>SITES Heladio Alvarado MD [address] [place] [address] [place] [address] Referral ID Status Reason Start Date Expiration Date Visits Requested Visits Authorized [id number] Authorized Auto-Generat ed Referral 01/05/2023 02/04/2024 1 1 [facility] for referral (narrative)* Diagnostic Procedure Only (Routine) - Closed Specialty Diagnoses / Procedures Referred By Contac t Referred To Contact XR IMAGING Diagnoses Steroid-induced osteoporosis Procedures DXA-FOREARM SKELETON DXA BONE DENSITY STUDY 1/>SITES Heladio Alvarado MD [address] [place] [address] [place] [address] Referral ID Status Reason Start Date Expiration Date V isits Requested Visits Authorized [id number] Closed Auto-Generate d Referral 01/05/2023 02/04/2024 1 1 [facility] for referral (narrative)* Consultation (Routine) - Authorized Specialty Diagnoses / Procedures Referred By Contac t Referred To Contact Cardiology Diagnoses 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 (Multi) Procedures Follow Up In Cardiology Antonio Steele MD [address] [facility] [address], [address] [address] Antonio Steele MD [address] [facility] 2, [address] [address] Referral ID Status Reason Start Date Expiration Date V isits Requested Visits Authorized [id number] Authorized 10/18/2023 10/17/2024 1 1 [facility] Work Phone: Reason for visit Narrative* Diagnostic Procedure Only (Routine) - Closed Specialty Diagnoses / Procedures Referred By Breonnaac t Referred To Contact XR IMAGING Diagnoses Steroid-induced osteoporosis Procedures DXA-FOREARM SKELETON DXA BONE DENSITY STUDY SITES APPENDICLR Heladio David MD [address] [place] [address] [place] [address] Referral ID Status Reason Start Date Expiration Date V isits Requested Visits Authorized [id number] Closed Auto-Generate d Referral 01/05/2023 02/04/2024 1 1 [facility] N[facility] Auth/Cert Specialty Diagnoses / Procedures Referred By Mario t Referred To Contact Diagnoses Atrial fibrillation, unspecified type (Multi) Atrial fibrillation, unspecified type (Multi) [I48.91] Procedures GA EXCLUSION LEFT ATRIAL APPENDAGE OPEN ANY METHOD GA PERQ CLSR TCAT L ATR APNDGE W/ENDOCARDIAL IMPLNT GA PERQ CLSR TCAT L ATR APNDGE W/ENDOCARDIAL IMPLNT LAAO (Left Atrial Appendage O[place]clusion[place] [address] [place] [address] Phone: tel: fax: [facility] [address] [facility] [address] [place] [address] Phone: tel: fax: Referral ID Status Reason Start Date Expiration Date Visits Re quested Visits Authorized [id number] 1 1 [facility] Work Phone: Reason for visit Narrative* Imaging (Routine) - Authorized Specialty Diagnoses / Procedures Referred By Mario t Referred To Contact Radiology Diagnoses Atrial fibrillation, unspecified type (Multi) Procedures [place] [address] [place] [address] Phone: tel: fax: Referral ID Status Reason Start Date Expiration Date Visits Requested Visits Authorized [id number] Authorized Perform Procedure 12/27/2023 12/26/2024 1 1 [facility] Work Phone: Chief Complaint and Reason [...] Complaint Hip pain Hip pain 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 Mri Done At [facility] z47.1 z96.641 Flu Shot/ Bp Check 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 Mri Done At [facility] z47.1 z96.641 Flu Shot/ Bp Check 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 Z47.1/Z96.641 T84.84XA Z96.652 M79.662 Chief Complaint Flu Shot/ Bp Check 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 Z47.1/Z96.641 [...] 17, 2024 3:02pm ASHD (arteriosclerotic heart disease) [facility] 2023 3:02pm Cough March 17, 2024 3 [...] 17, 2024 3:02pm ASHD (arteriosclerotic heart disease) [facility] 2023 3:02pm Cough March 17, 2024 3 [...] Visit Admit Date ASHD (arteriosclerotic heart disease) [facility] 2024 1:11pm GENESIS (generalized anxiety disorder) July [...] Visit Admit Date ASHD (arteriosclerotic heart disease) [facility] 2024 1:11pm GENESIS (generalized anxiety disorder) July [...] Visit Admit Date ASHD (arteriosclerotic heart disease) [facility] 2024 1:11pm GENESIS (generalized anxiety disorder) July [...] Visit Admit Date ASHD (arteriosclerotic heart disease) [facility] 2024 1:11pm GENESIS (generalized anxiety disorder) July [...] Visit Admit Date ASHD (arteriosclerotic heart disease) [facility] 2024 1:11pm GENESIS (generalized anxiety disorder) July [...] m Chest Pain August 12, 2024 3:23pm [facility]: Chest Pain-HIGH RISK August 19 4:09pm Reason for Visit Admit Date ASHD (arteriosclerotic heart disease) [facility] 2024 1:11pm GENESIS (generalized anxiety disorder) July [...] 06, 2024 11:36am ASHD (arteriosclerotic heart disease) Ma y 2024 12:48pm Atrial fibrillation August 11, [...] m Chest Pain August 12, 2024 3:23pm [facility]: Chest Pain-HIGH RISK August 19 4:09pm afib September 09, 2024 9:45a m Chief Complaint Admit Date diverticulitis July 30, 2024 9:4 4am lt [...] m Chest Pain August 12, 2024 3:23pm [facility]: Chest Pain-HIGH RISK August 19 4:09pm afib September 09, 2024 9:45a m Angina September 29, 2024 3:07 am stroke like symptoms September 30, 2024 4:1 4pm Reason for Visit Admit Date Purpura of skin due to vascular fragilit y July 30, 2024 9:44am Abdominal pain July 30, 2024 9:4 4am Diverticulitis large intestine July 9:44am Primary osteoarthritis, right hand August 04, 2024 9:03am Contusion of left hand August 04, 2024 9:03am Left hand pain August 04, 2024 9:0 3am History of revision of total replacement of left hip joint August 06, 2024 11:36am Contusion of left thigh August 06, 2024 11:36am ASHD (arteriosclerotic heart disease) Ma y 2024 12:48pm Atrial fibrillation August 11, 2024 12:48p m Hyperlipidemia August 11, 2024 12:48p m Presence of Watchman left atrial appenda ge closure device August 11, 2024 12:48pm Primary hypertension August 11, 2024 12:48 pm Chest pain August 11, 2024 12:48p m Unstable angina August 11, 2024 12:48p m 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 with RVR August 11, 2024 12:48pm ASHD (arteriosclerotic heart disease) Ma y 2024 4:09pm Atrial fibrillation August 19, 2024 4:09p m GENESIS (generalized anxiety disorder) August 072024 4:09pm Hypercholesterolemia August 19, 2024 4:09 pm Hypothyroid August 19, 2024 4:09p m FER (obstructive sleep apnea) August 19, 2024 4:09pm Primary hypertension August 19, 2024 4:09 pm Abnormal cardiovascular stress test September 29, 2024 3:07am ASHD (arteriosclerotic heart disease) Ju ne 2024 3:07am Atrial fibrillation September 29, 2024 3:07 am Hypercholesterolemia September 29, 2024 3:0 7am Hypothyroid September 29, 2024 3:07 am FER (obstructive sleep apnea) September 29, 2024 3:07am Presence of Watchman left atrial appenda ge closure device September 29, 2024 3:07am Chest pain September 29, 2024 3:07 am Acute hypotension September 30, 2024 4:14 pm MIESHA (acute kidney injury) September 30 4:14pm ASHD (arteriosclerotic heart disease) [facility] 20[facility] 4:14pm Atypical chest pain September 30, 2024 4:14 pm Blurred vision, bilateral September 30 4:14pm Hypercholesterolemia September 30, 2024 4:1 4pm Ischemic cardiomyopathy September 30, 2024 4:14pm Persistent atrial fibrillation September 4:14pm Pre-syncope September 30, 2024 4:14 pm Presence of Watchman left atrial appenda ge closure device September 30, 2024 4:14pm Primary hypertension September 30, 2024 4:1 4pm Chief Complaint Admit Date diverticulitis July 30, 2024 9:4 4am lt [...] m Chest Pain August 12, 2024 3:23pm [facility]: Chest Pain-HIGH RISK August 19 4:09pm afib September 09, 2024 9:45a m Angina September 29, 2024 3:07 am stroke like symptoms September 30, 2024 4:1 4pm Chest pain October 08, 2024 1:53p m Reason for Visit Admit Date Purpura of skin due to vascular fragilit y July 30, 2024 9:44am Abdominal pain July 30, 2024 9:4 4am Diverticulitis large intestine July 9:44am Primary osteoarthritis, right hand August 04, 2024 9:03am Contusion of left hand August 04, 2024 9:03am Left hand pain August 04, 2024 9:0 3am History of revision of total replacement of left hip joint August 06, 2024 11:36am Contusion of left thigh August 06, 2024 11:36am ASHD (arteriosclerotic heart disease) Ma y 2024 12:48pm Atrial fibrillation August 11, 2024 12:48p m Hyperlipidemia August 11, 2024 12:48p m Presence of Watchman left atrial appenda ge closure device August 11, 2024 12:48pm Chest pain August 11, 2024 12:48p m Unstable angina August 11, 2024 12:48p m Primary hypertension August 11, 2024 12:48 pm 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 with RVR August 11, 2024 12:48pm ASHD (arteriosclerotic heart disease) Ma y 2024 4:09pm Atrial fibrillation August 19, 2024 4:09p m GENESIS (generalized anxiety disorder) August 072024 4:09pm Hypercholesterolemia August 19, 2024 4:09 pm Hypothyroid August 19, 2024 4:09p m FER (obstructive sleep apnea) August 19, 2024 4:09pm Primary hypertension August 19, 2024 4:09 pm Abnormal cardiovascular stress test September 29, 2024 3:07am ASHD (arteriosclerotic heart disease) Shannan ne 2024 3:07am Atrial fibrillation September 29, 2024 3:07 am Hypercholesterolemia September 29, 2024 3:0 7am Hypothyroid September 29, 2024 3:07 am FER (obstructive sleep apnea) September 29, 2024 3:07am Presence of Watchman left atrial appenda ge closure device September 29, 2024 3:07am Chest pain September 29, 2024 3:07 am ASHD (arteriosclerotic heart disease) Shannan ne 2024 4:14pm Hypercholesterolemia September 30, 2024 4:1 4pm Presence of Watchman left atrial appenda ge closure device September 30, 2024 4:14pm Acute hypotension September 30, 2024 4:14 pm MIESHA (acute kidney injury) September 30 4:14pm Atypical chest pain September 30, 2024 4:14 pm Blurred vision, bilateral September 30 4:14pm Pre-syncope September 30, 2024 4:14 pm Ischemic cardiomyopathy September 30, 2024 4:14pm Persistent atrial fibrillation September 4:14pm Primary hypertension September 30, 2024 4:1 4pm ASHD (arteriosclerotic heart disease) Ju 2024 1:53pm Atrial fibrillation October 08, 2024 1:53p m GENESIS (generalized anxiety disorder) October 08, 2024 1:53pm Hypercholesterolemia October 08, 2024 1:53 pm Hypothyroid October 08, 2024 1:53p m FER (obstructive sleep apnea) October 08, 2024 1:53pm Chief Complaint Admit Date diverticulitis July 30, 2024 9:4 4am lt [...] m Chest Pain August 12, 2024 3:23pm [facility]: Chest Pain-HIGH RISK August 19 4:09pm afib September 09, 2024 9:45a m Angina September 29, 2024 3:07 am stroke like symptoms September 30, 2024 4:1 4pm Chest pain October 08, 2024 1:53p m Z96.641 - Presence of right artificial h ip joint October 23, 2024 7:53am OP SP INCREASED RTHA PAIN October 23 1:54pm Reason for Visit Admit Date Purpura of skin due to vascular fragilit y July 30, 2024 9:44am Abdominal pain July 30, 2024 9:4 4am Diverticulitis large intestine July 9:44am Primary osteoarthritis, right hand August 04, 2024 9:03am Contusion of left hand August 04, 2024 9:03am Left hand pain August 04, 2024 9:0 3am History of revision of total replacement of left hip joint August 06, 2024 11:36am Contusion of left thigh August 06, 2024 11:36am ASHD (arteriosclerotic heart disease) Ma y 2024 12:48pm Atrial fibrillation August 11, 2024 12:48p m Hyperlipidemia August 11, 2024 12:48p m Presence of Watchman left atrial appenda ge closure device August 11, 2024 12:48pm Chest pain August 11, 2024 12:48p m Unstable angina August 11, 2024 12:48p m Primary hypertension August 11, 2024 12:48 pm 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 with RVR August 11, 2024 12:48pm ASHD (arteriosclerotic heart disease) Ma y 2024 4:09pm Atrial fibrillation August 19, 2024 4:09p m GENESIS (generalized anxiety disorder) August 072024 4:09pm Hypercholesterolemia August 19, 2024 4:09 pm Hypothyroid August 19, 2024 4:09p m FER (obstructive sleep apnea) August 19, 2024 4:09pm Primary hypertension August 19, 2024 4:09 pm Abnormal cardiovascular stress test September 29, 2024 3:07am ASHD (arteriosclerotic heart disease) Shannan ne 2024 3:07am Atrial fibrillation September 29, 2024 3:07 am Hypercholesterolemia September 29, 2024 3:0 7am Hypothyroid September 29, 2024 3:07 am FER (obstructive sleep apnea) September 29, 2024 3:07am Presence of Watchman left atrial appenda ge closure device September 29, 2024 3:07am Chest pain September 29, 2024 3:07 am ASHD (arteriosclerotic heart disease) Ju ne 2024 4:14pm Hypercholesterolemia September 30, 2024 4:1 4pm Presence of Watchman left atrial appenda ge closure device September 30, 2024 4:14pm Acute hypotension September 30, 2024 4:14 pm MIESHA (acute kidney injury) September 30 4:14pm Atypical chest pain September 30, 2024 4:14 pm Blurred vision, bilateral September 30 4:14pm Pre-syncope September 30, 2024 4:14 pm Ischemic cardiomyopathy September 30, 2024 4:14pm Persistent atrial fibrillation September 4:14pm Primary hypertension September 30, 2024 4:1 4pm ASHD (arteriosclerotic heart disease) Ju 2024 1:53pm Atrial fibrillation October 08, 2024 1:53p m Chronic HFrEF (heart failure with reduce d ejection fraction) October 08, 2024 1:53pm GENESIS (generalized anxiety disorder) October 08, 2024 1:53pm Hypercholesterolemia October 08, 2024 1:53 pm Hypothyroid October 08, 2024 1:53p m FER (obstructive sleep apnea) October 08, 2024 1:53pm Pseudogout October 08, 2024 1:53p m Greater trochanteric bursitis of right h ip October 23, 2024 1:54pm History of total right hip arthroplasty October 23, 2024 1:54pm Chief Complaint Admit Date Angina September 29, 2024 3:07 am stroke like symptoms September 30, 2024 4:1 4pm Chest pain October 08, 2024 1:53p m Z96.641 - Presence of right artificial h ip joint October 23, 2024 7:53am OP SP INCREASED RTHA PAIN October 23 1:54pm Drug Load December 09, 2024 8:11am Reason for Visit Admit Date Abnormal cardiovascular stress test September 29, 2024 3:07am ASHD (arteriosclerotic heart disease) [facility] 2024 3:07am Atrial fibrillation September 29, 2024 3:07 am Hypercholesterolemia September 29, 2024 3:0 7am Hypothyroid September 29, 2024 3:07 am FER (obstructive sleep apnea) September 29, 2024 3:07am Presence of Watchman left atrial appenda ge closure device September 29, 2024 3:07am Chest pain September 29, 2024 3:07 am ASHD (arteriosclerotic heart disease) Shannan 2024 4:14pm Hypercholesterolemia September 30, 2024 4:1 4pm Persistent atrial fibrillation September 4:14pm Presence of Watchman left atrial appenda ge closure device September 30, 2024 4:14pm Acute hypotension September 30, 2024 4:14 pm MIESHA (acute kidney injury) September 30 4:14pm Atypical chest pain September 30, 2024 4:14 pm Blurred vision, bilateral September 30 4:14pm Pre-syncope September 30, 2024 4:14 pm Ischemic cardiomyopathy September 30, 2024 4:14pm Primary hypertension September 30, 2024 4:1 4pm ASHD (arteriosclerotic heart disease) Ju 2024 1:53pm Atrial fibrillation October 08, 2024 1:53p m Chronic HFrEF (heart failure with reduced ejection fraction) October 08, 2024 1:53pm GENESIS (generalized anxiety disorder) October 08, 2024 1:53pm Hypercholesterolemia October 08, 2024 1:53 pm Hypothyroid October 08, 2024 1:53p m FER (obstructive sleep apnea) October 08, 2024 1:53pm Pseudogout October 08, 2024 1:53p m Greater trochanteric bursitis of right h ip October 23, 2024 1:54pm History of total right hip arthroplasty October 23, 2024 1:54pm Persistent atrial fibrillation December 09, 2024 8:11am Chief Complaint Admit Date Angina September 29, 2024 3:07 am stroke like symptoms September 30, 2024 4:1 4pm Chest pain October 08, 2024 1:53p m Z96.641 - Presence of right artificial h ip joint October 23, 2024 7:53am OP SP INCREASED RTHA PAIN October 23 1:54pm Drug Load December 09, 2024 8:11am Back Pain December 15, 2024 10:51am Reason for Visit Admit Date Abnormal cardiovascular stress test September 29, 2024 3:07am ASHD (arteriosclerotic heart disease) Shannan ne 2024 3:07am Atrial fibrillation September 29, 2024 3:07 am Hypercholesterolemia September 29, 2024 3:0 7am Hypothyroid September 29, 2024 3:07 am FER (obstructive sleep apnea) September 29, 2024 3:07am Presence of Watchman left atrial appenda ge closure device September 29, 2024 3:07am Chest pain September 29, 2024 3:07 am ASHD (arteriosclerotic heart disease) Ju ne 2024 4:14pm Hypercholesterolemia September 30, 2024 4:1 4pm Persistent atrial fibrillation September 4:14pm Presence of Watchman left atrial appenda ge closure device September 30, 2024 4:14pm Acute hypotension September 30, 2024 4:14 pm MIESHA (acute kidney injury) September 30 4:14pm Atypical chest pain September 30, 2024 4:14 pm Blurred vision, bilateral September 30 4:14pm Pre-syncope September 30, 2024 4:14 pm Ischemic cardiomyopathy September 30, 2024 4:14pm Primary hypertension September 30, 2024 4:1 4pm ASHD (arteriosclerotic heart disease) Ju ly 2024 1:53pm Atrial fibrillation October 08, 2024 1:53p m Chronic HFrEF (heart failure with reduced ejection fraction) October 08, 2024 1:53pm GENESIS (generalized anxiety disorder) October 08, 2024 1:53pm Hypercholesterolemia October 08, 2024 1:53 pm Hypothyroid October 08, 2024 1:53p m FER (obstructive sleep apnea) October 08, 2024 1:53pm Pseudogout October 08, 2024 1:53p m Greater trochanteric bursitis of right h ip October 23, 2024 1:54pm History of total right hip arthroplasty October 23, 2024 1:54pm Persistent atrial fibrillation December 09, 2024 8:11am Greater trochanteric bursitis of right h ip December 15, 2024 10:51am Other chronic pain December 15, 2024 10:51am Other spondylosis with radiculopathy, muriel mbar region December 15, 2024 10:51am Family History No Family History Records Found Relationship Condition Age at Onset Recorded Date/T [...] Cerebral aneurysm Unknown brother Exposure to Agent [place] Unknown Relationship Condition Age at Onset Recorded Date/T daren Not Specified Calculus of kidney Unknown Presence of cardiac pacemaker Unknown Cerebrovascular accident (CVA) Unknown father Coronary artery disease Unknown brother Cerebral aneurysm Unknown brother Exposure to Agent [place] Unknown brother Unknown father Unknown Not Specified Unknown History of stroke Unknown Heart disease Unknown Relationship Condition Age at Onset Recorded Date/T daren Not Specified Calculus of kidney Unknown Presence of cardiac pacemaker Unknown Cerebrovascular accident (CVA) Unknown History of stroke Unknown Unknown Heart disease Unknown father Coronary artery disease Unknown brother Cerebral aneurysm Unknown Exposure to Agent [place] Unknown Relationship Condition Age at Onset Recorded Date/T daren mother Calculus of kidney Unknown Presence of cardiac pacemaker Unknown Cerebrovascular accident (CVA) Unknown History of stroke Unknown Unknown Heart disease Unknown father Coronary artery disease Unknown brother Cerebral aneurysm Unknown Exposure to Agent [place] Unknown Relationship Condition Age at Onset Recorded Date/T daren mother Heart disease Unknown Calculus of kidney Unknown Unknown Presence of cardiac pacemaker Unknown Cerebrovascular accident (CVA) Unknown father History of coronary artery stent placement Unknown Coronary artery disease Unknown brother Unknown Exposure to Agent [place] Unknown brother Cerebral aneurysm Unknown Advance Directives No Advanced Directives Records Found Advance Directive Response Recorded Date/ Time Advance Directives No January 25, 2017 2:08pm Advance Directive Response Recorded Date/ Time Advance Directives No January 25, 2017 1:08pm Date Activated Date Inactivated Comments 01/29/2024 9:31 AM Question Answer Comments Plan of Care: Code Status Discussion Completed Decision Maker: Patient Reason for Referral Specialty Diagnoses / Procedures Referred By Mario bartholomew Referred To Contact Diagnoses Persistent atrial fibrillation ([facility]) Procedures Cardioversion Sarai Barry MD [address] [place] [address] Referral ID Status Reason Start Date Expiration Date V isits Requested Visits Authorized [id number] Pending Review 06/04/2023 06/03/2024 1 1 Specialty Diagnoses / Procedures Referred By Mario bartholomew Referred To Contact Diagnoses 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 (Multi) Procedures ECG 12 Lead Antonio Steele MD [address] [facility] [address], [address] [address] Referral ID Status Reason Start Date Expiration Date V isits Requested Visits Authorized [id number] Authorized 07/27/2023 07/26/2024 1 1 Specialty Diagnoses / Procedures Referred By Contac t Referred To Contact Cardiology Diagnoses 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 (Multi) halfway current use of anticoagulant therapy Procedures Cardioversion External Antonio Steele MD [address] [facility] [address], [address] [address] Referral ID Status Reason Start Date Expiration Date V isits Requested Visits Authorized [id number] Pending Review 07/27/2023 07/26/2024 1 1 Referral ID Status Reason Start Date Expiration Date V isits Requested Visits Authorized [id number] Authorized 07/27/2023 07/26/2024 1 1 Specialty Diagnoses / Procedures Referred By Contac t Referred To Contact Cardiology Diagnoses 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 (Multi) Procedures Follow Up In Cardiology Antonio Steele MD [address] [facility] [address], [address] [address] Antonio Steele MD [address] [facility] [address], [address] [address] Referral ID Status Reason Start Date Expiration Date V isits Requested Visits Authorized [id number] Authorized 07/27/2023 07/26/2024 1 1 Reason *FU 11/[address] efer to dr pineda for rheumatology. labs with Dr Brower. Saw [facility], wants second opinion Diagnosis 1 Multiple joint pain (M25.50) Referral Organization [facility] Referring Provider First Name Melinda Referring Provider Last Name Luba Referring Provider Specialty Nurse Pract itioner Referred Organization [facility] Referred Provider Heladio Pineda Referred Address [address] [place], [place],[address] Referred Provider Specialty Internal Med icine Referral [...] 1 Tongue ulceration (K 14.0) Referral Organization [facility] Referring Provider First Name Vitaliy Referring Provider Last Name Inocente Referring Provider Specialty Internal Me dicine Referred Organization [facility] Referred Provider Farrah Blackburnary Referred Address ,[place], [place],[address] Referred Provider Specialty Ear, Nose an d [...] prosecute any alcohol or drug abuse patient.[facility] the event this information is protected by the Federal Confidentiality of Alcohol and Drug Abuse Patient Records regulations: The Federal rules restrict any use of the information to criminally investigate or prosecute any alcohol or drug abuse patient.[facility] the event this information is protected by the Federal Confidentiality of Alcohol and Drug Abuse Patient Records regulations: The Federal rules restrict any use of the information to criminally investigate or prosecute any alcohol or drug abuse patient.[facility]imaIn the event this information is protected by the Federal Confidentiality of Alcohol and Drug Abuse Patient Records regulations: The Federal rules restrict any use of the information to criminally investigate or prosecute any alcohol or drug abuse patient.[facility]imaIn the event this information is protected by the Federal Confidentiality of Alcohol and Drug Abuse Patient Records regulations: The Federal rules restrict any use of the information to criminally investigate or prosecute any alcohol or drug abuse patient.[facility]imaIn the event this information is protected by the Federal Confidentiality of Alcohol and Drug Abuse Patient Records regulations: The Federal rules restrict any use of the information to criminally investigate or prosecute any alcohol or drug abuse patient.[facility]ima[facility] the event this information is protected by the Federal Confidentiality of Alcohol and Drug Abuse Patient Records regulations: The Federal rules restrict any use of the information to criminally investigate or prosecute any alcohol or drug abuse patient.[facility]ima[facility] the event this information is protected by the Federal Confidentiality of Alcohol and Drug Abuse Patient Records regulations: The Federal rules restrict any use of the information to criminally investigate or prosecute any alcohol or drug abuse patient.[facility]ima[facility] the event this information is protected by the Federal Confidentiality of Alcohol and Drug Abuse Patient Records regulations: The Federal rules restrict any use of the information to criminally investigate or prosecute any alcohol or drug abuse patient.[facility]imaIn the event this information is protected by the Federal Confidentiality of Alcohol and Drug Abuse Patient Records regulations: The Federal rules restrict any use of the information to criminally investigate or prosecute any alcohol or drug abuse patient.[facility]imaIn the event this information is protected by the Federal Confidentiality of Alcohol and Drug Abuse Patient Records regulations: The Federal rules restrict any use of the information to criminally investigate or prosecute any alcohol or drug abuse patient.[facility]imaIn the event this information is protected by the Federal Confidentiality of Alcohol and Drug Abuse Patient Records regulations: The Federal rules restrict any use of the information to criminally investigate or prosecute any alcohol or drug abuse patient.[facility]ima[facility] the event this information is protected by the Federal Confidentiality of Alcohol and Drug Abuse Patient Records regulations: The Federal rules restrict any use of the information to criminally investigate or prosecute any alcohol or drug abuse patient.[facility]ima[facility] the event this information is protected by the Federal Confidentiality of Alcohol and Drug Abuse Patient Records regulations: The Federal rules restrict any use of the information to criminally investigate or prosecute any alcohol or drug abuse patient.[facility]imaIn the event this information is protected by the Federal Confidentiality of Alcohol and Drug Abuse Patient Records regulations: The Federal rules restrict any use of the information to criminally investigate or prosecute any alcohol or drug abuse patient.[facility]imaIn the event this information is protected by the Federal Confidentiality of Alcohol and Drug Abuse Patient Records regulations: The Federal rules restrict any use of the information to criminally investigate or prosecute any alcohol or drug abuse patient.[facility]imaIn the event this information is protected by the Federal Confidentiality of Alcohol and Drug Abuse Patient Records regulations: The Federal rules restrict any use of the information to criminally investigate or prosecute any alcohol or drug abuse patient.[facility]imaIn the event this information is protected by the Federal Confidentiality of Alcohol and Drug Abuse Patient Records regulations: The Federal rules restrict any use of the information to criminally investigate or prosecute any alcohol or drug abuse patient.[facility] REASON FOR VISIT (unrecogniz ed section and content) Reason Comments Consult Pain Ongoing generalized pain. Reason Comments Results Reason Comments Refill Request Reason Comments Follow Up Reason Comments Results Orders Reason Comments New Patient Visit [facility], previous [facility] patient Specialty Diagnoses / Procedures Referred By Contac t Referred To Contact Diagnoses 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 (Multi) Procedures ECG 12 Lead Antonio Steele MD [address] [facility] 2, [address] [address] Referral ID Status Reason Start Date Expiration Date V isits Requested Visits Authorized [id number] Authorized 07/27/2023 07/26/2024 1 1 Reason Comments EKG visit Specialty Diagnoses / Procedures Referred By Contac t Referred To Contact Diagnoses 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 (Multi) Procedures ECG 12 Lead Antonio Steele MD [address] [facility] 2, [address] [address] Referral ID Status Reason Start Date Expiration Date V isits Requested Visits Authorized [id number] Authorized 07/27/2023 07/26/2024 1 1 Reason Onset Date Comments Refill Request 12/13/2023 Reason Comments Follow-up Watchman 01/29/24 Reason Comments Follow-up 3 month Specialty Diagnoses / Procedures Referred By Contac t Referred To Contact Cardiology Diagnoses 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 (Multi) Procedures Follow Up In Cardiology Antonio Steele MD [address] [facility] 2, [address] [address] Antonio Steele [facility] [address] [address], [address] [address] Referral ID Status Reason Start Date Expiration Date V isits Requested Visits Authorized [id number] Authorized 07/27/2023 07/26/2024 1 1 Reason Comments watchman Specialty Diagnoses / Procedures Referred By Contac t Referred To Contact Cardiology Diagnoses Persistent atrial fibrillation (Multi) Antonio Steele MD [address] [facility] 2, [address] [address] [place] [address] [place] [id number] Referral ID Status Reason Start Date Expiration Date Visits Requested Visits Authorized [id number] Authorized Specialty Services Required 10/26/2023 10/25/2024 1 [...] artery stenosis Procedures Follow Up In Cardiology Antonio Steele MD [address] [place] [address], [address] [address] Phone: tel: fax: Antonio Steele MD [address] [place] [address] 2, [address] [address] Phone: tel: fax: Referral ID Status Reason Start Date Expiration Date V isits Requested Visits Authorized [id number] Authorized 02/14/2024 02/13/2025 1 1 Reason Comments Orders Appointment Reason Comments Osteoarthritis CPPD PMR Reason Comments CPPD Gout Arthritis Reason Comments Follow-up 3 months dcc Specialty Diagnoses / Procedures Referred By Contac t Referred To Contact Cardiology Diagnoses Multi-vessel coronary artery stenosis Procedures Follow Up In Cardiology Antonio Steele MD [address] 2, [address] [address] Phone: tel: fax: Antonio Steele MD [address] [facility] 2, [address] [address] Phone: tel: fax: Referral ID Status Reason Start Date Expiration Date V isits Requested Visits Authorized [id number] Authorized 08/22/2024 08/22/2025 1 1 Care Teams (unrecognized sec tion and content) Team Status: Active Member Role Status Dates Vitaliy Brower DO Primary Care Provider Active Team Status: Active Member Role Status Dates Vitaliy Brower DO Primary Care Provider Active Start: September 28, 2024 Fang Zhu MD Attending Provider Active Sta rt: September 28, 2024 Team Status: Inactive Member Role Status Dates Vitaliy Brower DO Primary Care Provider Active Start: September 29, 2024 End: September 29, 2024 Salinas Ascencio DO Admit Provider Active Start: September 29, 2024 End: September 29, 2024 Tomy Cabello MD Attending Provider Active Star t: September 29, 2024 End: September 29, 2024 Team Status: Inactive Member Role Status Dates Vitaliy Brower DO Primary Care Provider Active Start: September 30, 2024 End: October 01, 2024 Radha Medina MD Emergency Provider Active Start: September 30, 2024 End: October 01, 2024 Leidy Nuno DO Admit Provider Active Start: September 30, 2024 End: October 01, 2024 Leidy Nuno DO Attending Provider Active Sta rt: September 30, 2024 End: October 01, 2024 Antonio Steele MD Other Provider Active St art: September 30, 2024 End: October 01, 2024 Team Status: Inactive Member Role Status Dates Vitaliy Brower DO Primary Care Provider Active Start: October 08, 2024 End: October 08, 2024 Vitaliy Brower DO Attending Provider Active Sta rt: October 08, 2024 End: October 08, 2024 Team Status: Inactive Member Role Status Dates Vitaliy Brower DO Primary Care Provider Active Start: October 23, 2024 End: October 23, 2024 Sarai Mendez II, MD Attending Provider Active Start: October 23, 2024 End: October 23, 2024 Team Status: Inactive Member Role Status Dates Vitaliy Brower DO Primary Care Provider Active Start: December 09, 2024 End: December 12, 2024 Antonio Steele MD Admit Provider Active St art: December 09, 2024 End: December 12, 2024 Antonio Steele MD Attending Provider Active Start: December 09, 2024 End: December 12, 2024 Team Status: Inactive Member Role Status Dates Vitaliy Brower DO Primary Care Provider Active Start: July 30, 2024 End: July 30, 2024 Vitaliy Brower DO Attending Provider Active Sta rt: July 30, 2024 End: July 30, 2024 [...] 2024 End: August 13, 2024 Winnie Grande DO Emergency Provider Active St art: August 11, 2024 End: August 13, 2024 Lydia Connelly MD Admit Provider Active Start: Harmony nelson 2024 End: August 13, 2024 Lydia Connelly MD Attending Provider Active Star t: August 11, 2024 End: August 13, 2024 Mary Ann Miller RN Other Provider Active Star t: August 11, 2024 End: August 13, 2024 Kathy Valle DO Other Provider Active Start : August 11, 2024 End: August 13, 2024 Lala Arce MD Other Provider Active Start: August 11, 2024 End: August 13, 2024 Nehemiah Mcknight MD Other Provider Active Start: August 11, 2024 End: August 13, 2024 Antonio Steele MD Other Provider Active St art: August [...] M ay 2024 End: August 13, 2024 ADELINA Johnson- Other Provider Active Sta rt: August 11, [...] August 12, 2024 Lydia Connelly MD Admit Provider Active Start: M ay 2024 Lydia Connelly MD Other Provider Active Start: M ay 2024 Mary Ann Miller , GEMINI Other Provider Active Star t: August 12, 2024 Kathy Valle DO Other Provider Active Start : August 12, 2024 Lala Arce MD Other Provider Active Start: August 12, 2024 Nehemiah Mcknight MD Other Provider Active Start: August 12, 2024 Antonio Steele MD Other Provider Active St art: August 12, 2024 Dutch Posadas MD Other Provider Active Start: August 12, 2024 Geno Corona APRN Other Provider Active Start : August 12, 2024 Tami Steele MD Other Provider Active Start: M ay 2024 Arnaldo Mccarty MD Other Provider Active Start: August 12, 2024 Munir Foote MD Other Provider Active Start: M ay 2024 ADELINA Johnson- Other Provider Active Sta rt: August 12, 2024 Ada Woodruff MD Attending Provider Active Sta rt: August 12, 2024 Team Status: Inactive Member Role Status Dates Vitaliy Brower DO Primary Care Provider Active Start: August 19, 2024 End: August 19, 2024 Vitaliy Brower DO Attending Provider Active Sta rt: August 19, 2024 End: August 19, 2024 Team Status: Inactive Member Role Status Dates Vitaliy Brower DO Primary Care Provider Active Start: September 09, 2024 End: September 09, 2024 Antonio Steele MD Attending Provider Active Start: September 09, 2024 End: September 09, 2024 Team Status: Active Member Role Status Dates Vitaliy rBower DO Primary Care Provider Active Start: June 30, 2024 Heladio Pineda Attending Provider Active Start: 2024 Team Status: Inactive Member Role Status [...] 2024 End: August 13, 2024 Winnie Grande DO Emergency Provider Active St art: August 11, 2024 End: August 13, 2024 Lydia Connelly MD Admit Provider, Atte nding Provider Active Start: August 11, 2024 End: August 13, 2024 Mary Ann Miller RN Other Provider Active Star t: August 11, 2024 End: August 13, 2024 Kathy Valle DO Other Provider Active Start : August 11, 2024 End: August 13, 2024 Lala Arce MD Other Provider Active Start: August 11, 2024 End: August 13, 2024 Nehemiah Mcknight MD Other Provider Active Start: August 11, 2024 End: August 13, 2024 Antonio Steele MD Other Provider Active St art: August [...] 2024 End: August 13, 2024 Nicolle Amaya [facility] Other Provider Active Sta rt: August 11, [...] Star t: August 12, 2024 Kathy Valle DO Other Provider Active Start : August 12, 2024 Lala Arce MD Other Provider Active Start: August 12, 2024 Nehemiah Mcknight MD Other Provider Active Start: August 12, 2024 Antonio Steele MD Other Provider Active St art: August 12, 2024 Dutch Posadas MD Other Provider Active Start: August 12, 2024 Geno Corona APRN Other Provider Active Start : August 12, 2024 Tami Steele MD Other Provider Active Start: M ay 2024 Arnaldo Mccarty MD Other Provider Active Start: August 12, 2024 Munir Foote MD Other Provider Active Start: M ay 2024 Nicolle Amaya [facility] Other Provider Active Sta rt: August 12, [...] 2023 Heladio Pineda Attending Provider Active Start: 2023 Team Status: Active Member Role Status [...] Dates Vitaliy Brower , DO Primary Care Provide r, Attending Provider Active Start: June 29, 2023 End: June 29, 2023 Team Status: Active Member Role Status Dates Vitaliy Brower , DO Primary Care Provider Active Start: June 04, 2023 Thao Harding Attending Provider Active Start: [facility]2023 Team Status: Inactive Member Role Status Dates Vitaliy Brower , DO Primary Care Provider Active Start: June 06, 2023 End: June 06, 2023 Sarai Mendez II, MD Attending Provider Active Start: June 06, 2023 End: June 06, 2023 Team Status: Active Member Role Status Dates Vitaliy Brower , Primary Care Provider Active Start: [...] Dates Vitaliy Brower , DO Primary Care Provider, [...] Active Damien Holbrook PA-C Emergency Provider Active Retirement Specialist Relationship Specialty Start Date End Date Vitaliy Brower, [address] [place] [address] PCP - General Internal Medicine 01/05/23 Melinda Verduzco, RECREATION ACTIVITIES COORDINATOR [address] [place] [address] Referring Orthopedics 11/24/22 Retirement Specialist Relationship Specialty Start Date End Date Vitaliy Brower DO [address] [place] [address] PCP - General Internal Medicine 01/05/23 Melinda Verduzco, RECREATION ACTIVITIES COORDINATOR [address] [place] [address] Referring Orthopedics 11/24/22 Retirement Specialist Relationship Specialty Start Date End Date Vitaliy Brower DO [address] [place] [address] PCP - General Internal Medicine 01/05/23 Melinda Verduzco, RECREATION ACTIVITIES COORDINATOR [address] [place] [address] Referring Orthopedics 11/24/22 Retirement Specialist Relationship Specialty Start Date End Date Vitaliy Brower DO [address] [place] [address] PCP - General Internal Medicine 01/05/23 Melinda Verduzco, RECREATION ACTIVITIES COORDINATOR [address] [place] [address] Referring Orthopedics 11/24/22 Team Status: Inactive Member [...] May 21, 2023 End: May 21, 2023 Retirement Specialist Relationship Specialty Start Date End Date Vitaliy Brower DO [address] [facility] [place] [address] PCP - General Internal Medicine 01/05/23 Melinda Verduzco CNP [address] [place] [address] Referring Orthopedics 11/24/22 Retirement Specialist Relationship Specialty Start Date End Date Vitaliy Brower DO [address] [place] [address] PCP - General Internal Medicine 01/05/23 Melinda Verduzco, RECREATION ACTIVITIES COORDINATOR [address] [place] [address] Referring Orthopedics 11/24/22 Retirement Specialist Relationship Specialty Start Date End Date Vitaliy Brower DO [address] [place] [facility] [place] [address] PCP - General Internal Medicine 01/05/23 Melinda Verduzco, RECREATION ACTIVITIES COORDINATOR [address] [place] [address] Referring Orthopedics 11/24/22 Retirement Specialist Relationship Specialty Start Date End Date Vitaliy Brower DO [address] [facility] [address] PCP - General Internal Medicine 07/12/23 Retirement Specialist Relationship Specialty Start Date End Date Vitaliy Brower DO PCP - General Internal Medicine 07/12/23 Retirement Specialist Relationship Specialty Start Date End Date Vitaliy Brower DO [address] [place] [address] PCP - General Internal Medicine 01/05/23 Melinda Verduzco, RECREATION ACTIVITIES COORDINATOR [address] [place] [address] Referring Orthopedics 11/24/22 Retirement Specialist Relationship Specialty Start Date End Date Vitaliy Brower DO [address] [place] [facility] [place] [address] PCP - General Internal Medicine 01/05/23 Melinda Verduzco, RECREATION ACTIVITIES COORDINATOR [address] [place] [address] Referring Orthopedics 11/24/22 Retirement Specialist Relationship Specialty Start Date End Date Vitaliy Brower DO [address] [facility] [place] [address] PCP - General Internal Medicine 01/05/23 Melinda Verduzco, FOAM TANK LAMINATOR.RECREATION ACTIVITIES COORDINATOR [address] [place] [address] Referring Orthopedics 11/24/22 Team Status: Active Member [...] January 24, 2024 End: January 24, 2024 Retirement Specialist Relationship Specialty Start Date End Date Vitaliy Brower DO PCP - General Internal Medicine 07/12/23 Team Status: Inactive Member Role Status Dates Vitaliy Brower DO Primary Care Provider Active Start: February 12, 2024 End: February 12, 2024 Chio Nichole MD Attending Provider Active Start: February 12, 2024 End: February 12, 2024 Retirement Specialist Relationship Specialty Start Date End Date Vitaliy Borwer DO PCP - General Internal Medicine 07/12/23 Team Status: Inactive Member Role Status Dates Vitaliy Brower DO Primary Care Provider Active Start: February 18, 2024 End: February 18, 2024 Sukhjinder Montesinos DO Attending Provider Active St art: February 18, 2024 End: February 18, 2024 Retirement Specialist Relationship Specialty Start Date End Date Vitaliy Brower DO PCP - General Internal Medicine 07/12/23 Retirement Specialist Relationship Specialty Start Date End Date Vitaliy Brower DO PCP - General Internal Medicine 07/12/23 Retirement Specialist Relationship Specialty Start Date End Date Vitaliy Brower DO [address] [place] [address] PCP - General 01/08/18 Team Status: Inactive Member Role Status Dates Vitaliy Brower DO Primary Care Provide r, Attending Provider Active Start: March 17, 2024 End: March 17, 2024 Retirement Specialist Relationship Specialty Start Date End Date Vitaliy Brower DO [address] [place] [address] PCP - General 01/08/18 Retirement Specialist Relationship Specialty Start Date End Date Vitaliy Brower DO [address] [place] [address] PCP - General 01/08/18 Retirement Specialist Relationship Specialty Start Date End Date Vitaliy Brower DO [address] [place] [address] PCP - General 01/08/18 Retirement Specialist Relationship Specialty Start Date End Date Vitaliy Brower DO [address] [place] [address] PCP - General 01/08/18 Retirement Specialist Relationship Specialty Start Date End Date Vitaliy Brower DO [address] [place] [address] PCP - General Internal Medicine 05/07/24 Retirement Specialist Relationship Specialty Start Date End Date Vitaliy Brower DO [address] [place] [address] PCP - General Internal Medicine 01/05/23 Melinda Verduzco FOAM TANK LAMINATOR.RECREATION ACTIVITIES COORDINATOR [address] [place] [address] Referring Orthopedics 11/24/22 Retirement Specialist Relationship Specialty Start Date End Date Vitaliy Brower DO [address] [place] [address] PCP - General Internal Medicine 01/05/23 Melinda Verduzco FOAM TANK LAMINATOR.RECREATION ACTIVITIES COORDINATOR [address] [place] [address] Referring Orthopedics 11/24/22 Team Status: Active Member [...] Provider A ctive Start: August 11, 2024 Retirement Specialist Relationship Specialty Start Date End Date Vitaliy Brower DO [address] [place] [address] PCP - General Internal Medicine 05/07/24 Retirement Specialist Relationship Specialty Start Date End Date Vitaliy Brower DO [address] [place] [address] PCP - General Internal Medicine 01/05/23 Melinda Verduzco, STEPHEN.RECREATION ACTIVITIES COORDINATOR [address] [place] [address] Referring Orthopedics 11/24/22 Retirement Specialist Relationship Specialty Start Date End Date Vitaliy Brower DO [address] [place] [address] PCP - General Internal Medicine 01/05/23 Melinda Verduzco, FOAM TANK LAMINATOR.RECREATION ACTIVITIES COORDINATOR [address] [place] [address] Referring Orthopedics 11/24/22 Retirement Specialist Relationship Specialty Start Date End Date Vitaliy Brower DO [address] [place] [address] PCP - General Internal Medicine 01/05/23 Melinda Verduzco, FOAM TANK LAMINATOR.RECREATION ACTIVITIES COORDINATOR [address] [place] [address] Referring Orthopedics 11/24/22 Retirement Specialist Relationship Specialty Start Date End Date Vitaliy Brower DO [address] [facility] [place] [place] [address] PCP - General Internal Medicine 01/05/23 Melinda Verduzco, FOAM TANK LAMINATOR.RECREATION ACTIVITIES COORDINATOR [address] [place] [address] Referring Orthopedics 11/24/22 Team Status: Active Member Role Status Dates Vitaliy Brower DO Primary Care Provider Active Start: October 23, 2024 Sarai Mendez II, MD Attending Provider Active Start: October 23, 2024 Retirement Specialist Relationship Specialty Start Date End Date Vitaliy Brower DO [address] [place] [address] PCP - General Internal Medicine 05/07/24 Team Status: Inactive Member Role Status Dates Vitaliy Brower DO Primary Care Provider Active Start: December 15, 2024 End: December 15, 2024 Jonathan Samano MD Attending Provider Active Sta rt: December 15, 2024 End: December 15, 2024 Goals (unrecognized section and content) Goals may be documented in a n alternate section (unrecognized sect ion and content) No Status Records FoundNo Status Records FoundNo Status Records FoundNo Status Records FoundNo Status Records FoundNo Status Records FoundNo Status Records FoundNo Status Records FoundNo Status Records FoundNo Status Records Found INFORMATION SOURCE (unrecogn ized section and content) DATE CREATED AUTHOR 08/05/2022 [facility] DATE CREATED AUTHOR AUTHOR'S ORGANIZ ATION 06/13/2023 [facility] DATE CREATED AUTHOR AUTHOR'S ORGANIZ ATION 06/29/2023 [facility] DATE CREATED AUTHOR AUTHOR'S ORGANIZ ATION 09/20/2023 [facility] DATE CREATED AUTHOR AUTHOR'S ORGANIZ ATION 01/31/2024 [facility] DATE CREATED AUTHOR AUTHOR'S ORGANIZ ATION 08/01/2024 [facility] DATE CREATED AUTHOR AUTHOR'S ORGANIZ ATION 08/25/2024 [facility] DATE CREATED AUTHOR AUTHOR'S ORGANIZ ATION 09/29/2024 [facility] DATE CREATED AUTHOR AUTHOR'S ORGANIZ ATION 12/14/2024 [facility] DATE CREATED AUTHOR AUTHOR'S ORGANIZ ATION [address] [facility] Ambulatory Scheduled Active and Recently Administ ered Medications [...] 1240 (New Bag - Prov ider: Narinder Castillo RN)1307 (Stopped - Provider: Louie Parra RN) [...] 1316 (New Bag - Prov ider: Lilly Wick RN - Comment: 50mg protamine infusing 10 [...] BE BASED ON THE PRIMARY CLINICAL RECORDS. [employer] provides no warranty or guarantee of the accuracy or completeness of information in this document.
[2024-12-17 15:31] LABS: Hematocrit 43.4 % (42.0-54.0); Hemoglobin 15.2 g/dL (14.0-18.0); Immature Granulocytes Abs Auto 0.22 10^3/uL (0.00-0.03); Immature Granulocytes Pct Auto 1.9 % (0.0-0.5); Lymphocytes Absolute Auto 1.2 10^3/uL (1.2-3.8); Mean Corpuscular HGB Conc 35.0 g/dL (29.9-35.2); Mean Corpuscular Hemoglobin 35.1 pg (25.9-34.0); Mean Corpuscular Volume 100.2 fL (80.0-94.0); Platelet Count 167 10^3/uL (150-450); Red Blood Count 4.33 10^6/uL (4.70-6.10); White Blood Count 11.8 10^3/uL (4.0-11.0)
[2024-12-17] MEDS: MORPHINE SULFATE 4 MG/ML VIAL IV (15:32)
[2024-12-17 15:38] LABS: Glucose Urine UA >=1000 mg/dL (NEGATIVE)
[2024-12-17 15:47] LABS: INR 1.06; Partial Thromboplastin Time 24.8 sec (22.3-36.2); Prothrombin Time 11.2 sec (9.0-11.6)
--- NOTE | 2024-12-17 15:51 | ED.FALL1 ---
HPI HPI - Fall General Chief Complaint: Fall Stated Complaint: FALL SOB Time Seen by Provider: 12/17/24 14:31 Source: patient Mode of arrival: walk-in Limitations: no limitations History of Present Illness HPI Narrative: 64-year-old male on anticoagulation with Eliquis presents after a fall earlier today against bar stools caused from tripping. He denies head injury, loss of consciousness, dizziness, chest pain, or shortness of breath. Reports pain in the right lower ribs and right upper and anterior abdomen. No other complaints. No vomiting, nausea, or bleeding elsewhere. Onset (ago): hour(s) Fall from: Reports standing Fall witnessed: Reports no Place fall occurred: Reports home Loss of consciousness: none Prolonged down time: Reports no Symptoms prior to fall: Reports none Context: Reports tripped/slipped Location of injury: Reports chest, back and abdomen Related Data Home Medications ?Medication ?Instructions ?Recorded ?Confirmed allopurinol 100 mg tablet 200 mg PO DAILY 09/28/24 12/17/24 alprazolam 0.5 mg tablet 0.5 mg PO BEDTIME 09/28/24 12/17/24 aspirin 81 mg capsule 81 mg PO DAILY 09/28/24 12/17/24 ergocalciferol (vitamin D2) 1,250 100,000 unit PO DAILY 09/28/24 12/17/24 mcg (50,000 unit) capsule escitalopram oxalate 20 mg tablet 20 mg PO DAILY 09/28/24 12/17/24 levothyroxine 150 mcg tablet 150 mcg PO DAILY 09/28/24 12/17/24 methylprednisolone 4 mg tablet 4 mg PO Q12H 09/28/24 12/17/24 metoprolol succinate 50 mg 50 mg PO DAILY 09/28/24 12/17/24 tablet,extended release 24 hr pantoprazole 40 mg tablet,delayed 40 mg PO DAILY 09/28/24 12/17/24 release spironolactone 25 1 tab PO DAILY 09/28/24 12/17/24 mg-hydrochlorothiazide 25 mg tablet valacyclovir 500 mg tablet 500 mg PO DAILY 09/28/24 12/17/24 apixaban 5 mg tablet (Eliquis) 5 mg PO Q12H 12/17/24 12/17/24 atorvastatin 80 mg tablet 80 mg PO QDAY 12/17/24 12/17/24 dofetilide 125 mcg capsule 125 mcg PO Q12H 12/17/24 12/17/24 magnesium oxide 400 mg (241.3 mg 400 mg PO QDAY 12/17/24 12/17/24 magnesium) tablet Previous Rx's ?Medication ?Instructions ?Recorded hydrocodone 5 mg-acetaminophen 325 1 tab PO Q6H PRN pain #14 tabs 12/17/24 mg tablet Allergies Allergy/AdvReac Type Severity Reaction Status Date / Time prednisone AdvReac Severe Unknown Verified 12/17/24 14:05 Opioid HPI Opioid Management Most Recent Pain and Opioid Data: Last Pain Scale 9 Today, 15:32 Last MAR Pain Assessment Today, 15:32 PFSH PFSH Social History Little interest or pleasure in doing things: not at all Feeling down, depressed, or hopeless: not at all Exam Narrative Exam Narrative: General: Alert, in no acute distress. Vital Signs: Within normal limits. Head/Neck: No signs of trauma, no bruising or tenderness, no scalp lacerations. Chest: Mild tenderness and contusion to the lower right lateral over right ribs, no crepitus, no deformities, lungs clear to auscultation. Abdomen: Mild tenderness in right upper quadrant, soft, non-distended, no guarding or rebound, no palpable masses. contusion on the anterior and right lateral abdomen Extremities: No deformity, no swelling, full range of motion. Neuro: Alert and oriented ?3, no focal deficits. Constitutional Vital Signs, click to edit/add: Last Vital Signs Temp 99 F 12/17/24 14:05 Pulse 73 12/17/24 14:05 Resp 18 12/17/24 14:05 BP 136/84 12/17/24 14:05 Pulse Ox 97 12/17/24 14:05 O2 Del Method Room Air 12/17/24 14:05 Course Vital Signs Vital signs: Vital Signs Temperature 99 F 12/17/24 14:05 Pulse Rate 73 12/17/24 14:05 Respiratory Rate 18 12/17/24 14:05 Blood Pressure 136/84 12/17/24 14:05 Pulse Oximetry 97 12/17/24 14:05 Oxygen Delivery Method Room Air 12/17/24 14:05 Temperature 99 F 12/17/24 14:05 Pulse Rate 73 12/17/24 14:05 Respiratory Rate 18 12/17/24 14:05 Blood Pressure 136/84 12/17/24 14:05 Pulse Oximetry 97 12/17/24 14:05 Oxygen Delivery Method Room Air 12/17/24 14:05 - Fall Lab Data Labs: Lab Results 12/17/24 12/17/24 Range/Units 15:18 15:20 WBC 11.8 H (4.0-11.0) 10^3/uL RBC 4.33 L (4.70-6.10) 10^6/uL Hgb 15.2 (14.0-18.0) g/dL Hct 43.4 (42.0-54.0) % MCV 100.2 H (80.0-94.0) fL MCH 35.1 H (25.9-34.0) pg MCHC 35.0 (29.9-35.2) g/dL RDW 13.7 (11.0-15.0) % Plt Count 167 (150-450) 10^3/uL MPV 10.4 (9.5-13.5) fL Neut % (Auto) 81.2 H (43.0-75.0) % Lymph % (Auto) 9.8 L (20.5-60.0) % [place] % (Auto) 6.7 (1.7-12.0) % Eos % (Auto) 0.1 L (0.9-7.0) % Baso % (Auto) 0.3 (0.2-2.0) % Neut # (Auto) 9.6 H (1.4-6.5) 10^3/uL Lymph # (Auto) 1.2 (1.2-3.8) 10^3/uL [place] # (Auto) 0.8 (0.3-0.8) 10^3/uL Eos # (Auto) 0.0 (0.0-0.7) 10^3/uL Baso # (Auto) 0.0 (0.0-0.1) 10^3/uL Abs Immat Gran (auto) 0.22 H (0.00-0.03) 10^3/uL Imm/Tot Granulo (auto) 1.9 H (0.0-0.5) % PT 11.2 (9.0-11.6) sec INR 1.06 APTT 24.8 (22.3-36.2) sec Sodium 136 (136-145) mmol/L Potassium 4.2 (3.5-5.1) mmol/L Chloride 100 (98-107) mmol/L Carbon Dioxide 25.9 (21.0-32.0) mmol/L Anion Gap 14.3 BUN 17.0 (7.0-18.0) mg/dL Creatinine 0.88 (0.70-1.30) mg/dL Est GFR ( Amer) >60 (>=60 mL/min/1.73m^2) Est GFR (Non-Af Amer) >60 (>=60 mL/min/1.73m^2) BUN/Creatinine Ratio 19.3 Glucose 322 H (74-106) mg/dL Calcium 9.0 (8.5-10.1) mg/dL Total Bilirubin 1.0 (0.2-1.0) mg/dL AST 20 (15-37) U/L ALT 58 (16-63) U/L Alkaline Phosphatase 88 (46-116) U/L Total Protein 7.1 (6.4-8.2) g/dL Albumin 3.7 (3.4-5.0) g/dL Globulin 3.4 g/dL Albumin/Globulin Ratio 1.1 Urine Color Lt. yellow (YELLOW) Urine Clarity Clear (CLEAR) Urine pH 7.0 (5.0-9.0) Ur Specific [place] 1.010 (1.005-1.025) Urine Protein Negative (NEG/TRACE) mg/dL Urine Glucose (UA) >=1000 A (NEGATIVE) mg/dL Urine Ketones Negative (NEGATIVE) mg/dL Urine Occult Blood Negative (NEGATIVE) Urine Nitrite Negative (NEGATIVE) Urine Bilirubin Negative (NEGATIVE) Urine Urobilinogen 0.2 (0.2-1.0) EU/dL Ur Leukocyte Esterase Negative (NEGATIVE) Urine RBC None seen (0-2) #/HPF Urine WBC None seen (NONE SEEN) #/HPF Ur Squamous Epith Cells Rare (NONE/RARE) #/LPF Urine Crystals None seen (None Seen) #/HPF Urine Bacteria None seen (NONE SEEN) #/HPF Urine Casts None seen (NONE SEEN) #/LPF Urine Mucus None seen (NONE SEEN) Ur Culture Indicated? No Discharge Plan Discharge Chief Complaint: Fall Clinical Impression: Contusion of abdominal wall, initial encounter, Anticoagulant long-term use Closed rib fracture Qualifiers: Encounter type: initial encounter Rib fracture type: single rib Laterality: right Qualified Code(s): S22.31XA - Fracture of one rib, right side, initial encounter for closed fracture Fall Qualifiers: Encounter type: initial encounter Qualified Code(s): W19.XXXA - Unspecified fall, initial encounter Patient Disposition: Home, Self-Care Time of Disposition Decision: 16:44 Condition: Good Prescriptions / Home Meds: New hydrocodone-acetaminophen 5-325 mg tablet 1 tab PO Q6H PRN (Reason: pain) Qty: 14 0RF No Action Eliquis 5 mg tablet 5 mg PO Q12H atorvastatin 80 mg tablet 80 mg PO QDAY dofetilide 125 mcg capsule 125 mcg PO Q12H magnesium oxide 400 mg (241.3 mg magnesium) tablet 400 mg PO QDAY allopurinol 100 mg tablet 200 mg PO DAILY alprazolam 0.5 mg tablet 0.5 mg PO BEDTIME aspirin 81 mg capsule 81 mg PO DAILY ergocalciferol (vitamin D2) 1,250 mcg (50,000 unit) capsule 100,000 unit PO DAILY escitalopram oxalate 20 mg tablet 20 mg PO DAILY levothyroxine 150 mcg tablet 150 mcg PO DAILY methylprednisolone 4 mg tablet 4 mg PO Q12H metoprolol succinate 50 mg tablet extended release 24 hr 50 mg PO DAILY pantoprazole 40 mg tablet,delayed release (DR/EC) 40 mg PO DAILY spironolacton-hydrochlorothiaz 25-25 mg tablet 1 tab PO DAILY valacyclovir 500 mg tablet 500 mg PO DAILY Print Language: Georgian Instructions: Rib Fracture (ED), Fall Prevention (ED) Additional Instructions: Medications / Pain Control: Prescription for NORCO as prescribed. Follow dosage instructions carefully. Self-Care / Activity: Rest and avoid heavy lifting, bending, or strenuous activity. Apply ice packs to the area for 15?20 minutes every 2?3 hours for the first 24?48 hours. Support your ribs when coughing or sneezing by gently holding a pillow to your chest. Monitoring / Warning Signs: Call or return to care immediately if you notice: Shortness of breath or difficulty breathing Chest pain that is worsening Swelling, bruising, or redness that increases Dizziness, fainting, or unusual bleeding Follow-Up: Schedule follow-up with your primary care provider or employee development specialist within 1?2 weeks. Additional Instructions: Avoid activities that may risk another fall. Use caution with anticoagulation if applicable and follow any specific instructions from your provider. Referrals: Coleman Luz DO [Primary Care Provider, Internal Medicine] - 1 week
--- NOTE | 2024-12-17 15:57 | CT_ITS ---
The [address] [address] Patient Name: ESME KAMINSKI MRN: [id number] date: 1960 Sex: M Assigned Patient Location: ER Current Patient Location: ER Accession/Order Number: [id number] Exam Date: 12/17/2024 15:45 Report Date: 12/17/2024 16:31 At the request of: EMILIANO HILL Procedure: CT chest w con CT CHEST, ABDOMEN AND PELVIS WITH INTRAVENOUS CONTRAST: CLINICAL HISTORY: fall ecchymosis right side anticoag COMPARISON: CT abdomen pelvis 11/23/2023 TECHNIQUE: TECHNIQUE: Spiral images were obtained through the chest, abdomen and pelvis following the administration of IV contrast. This CT exam was performed using one or more following dose reduction techniques: Automated exposure control, adjustment of the mA and/or kV according to patient size, or use of iterative reconstruction technique. FINDINGS: CT chest: Mediastinum:Post CABG changes. Cardiomegaly. Left atrial exclusion device. No pericardial effusion. No bulky adenopathy. Aortic vascular calculations. Lungs:No focal opacity, effusion or pneumothorax. Soft tissues/Bones: [Right posterior 11th rib fracture.] Left sixth rib fractures, subacute with callus formation. Degenerative changes of the thoracic spine. No compression fracture. No right anterior lateral rib fracture deformities with callus formation. Mild soft tissue swelling right posterior lateral flank. Gynecomastia. CT abdomen and pelvis: Organs:Liver, gallbladder, spleen, adrenals, kidneys, pancreas unremarkable. Gallbladder unremarkable.[ GI: Mild reversal. Mild colonic diverticulosis. No bowel obstruction. No pericecal inflammatory changes.[ Pelvis:[Posterior changes hip arthroplasties degrade evaluation due to artifact. Bladder is visualized grossly unremarkable. Prostate mostly obscured.] Peritoneum/Retroperitoneum:No free air or fluid. Moderate plaque involving the nonaneurysmal aorta. Abd wall/Bones:Multilevel disease involving lumbar spine multilevel facet about. Evidence of multilevel laminectomy L4-S1. Prominent disc osteophyte complex L2-3 likely causing canal narrowing at this level. There is soft tissue thickening right lateral flank on the posterior lateral margin of the right and 11 ribs. There is a fracture involving the right posterior 11th rib.[ CT/CT abdomen pelvis w con IMPRESSION: Nondisplaced fracture right posterior 11th rib Left sixth anterolateral rib fracture with callus formation likely subacute. Otherwise chronic right anterior lateral rib fractures noted. Otherwise, no additional evidence of acute posttraumatic process involving chest/abdomen/pelvis Impression dictated by: Ap Paul M.D. 12/17/2024 4:31 PM Dictation Location: [place] [address] Electronically authenticated by: [id number] Y Date: 12/17/2024 16:31
--- NOTE | 2024-12-17 15:57 | CT_ITS ---
The [address] [address] Patient Name: ESME KAMINSKI MRN: [id number] date: 1960 Sex: M Assigned Patient Location: ER Current Patient Location: ER Accession/Order Number: [id number] Exam Date: 12/17/2024 15:45 Report Date: 12/17/2024 16:21 At the request of: EMILIANO HILL Procedure: CT head/brain wo con CT BRAIN WITHOUT CONTRAST: CLINICAL HISTORY: anticoag head fall COMPARISON: None TECHNIQUE: Contiguous axial unenhanced images were obtained through the brain. This CT exam was performed using one or more following dose reduction techniques: Automated exposure control, adjustment of the mA and/or kV according to patient size, or use of iterative reconstruction technique. FINDINGS: There is no evidence of midline shift, intra or extra-axial fluid collection, hemorrhage or CT evidence of acute large vascular distribution stroke. Mild chronic small vessel ischemic disease. Minimal central involutional changes. There are vascular calcifications. Visualized intraorbital contents appear unremarkable. Visualized paranasal sinuses are clear. The surrounding soft tissues are normal. CT/CT head/brain wo con IMPRESSION: NO ACUTE INTRACRANIAL ABNORMALITY. MILD CHRONIC SMALL VESSEL CHANGES Impression dictated by: Ap Paul M.D. 12/17/2024 4:21 PM Dictation Location: [place] [address] Electronically authenticated by: [id number] Y Date: 12/17/2024 16:21
--- NOTE | 2024-12-17 15:57 | CT_ITS ---
The [address] [address] Patient Name: ESME KAMINSKI MRN: [id number] date: 1960 Sex: M Assigned Patient Location: ER Current Patient Location: ER Accession/Order Number: [id number] Exam Date: 12/17/2024 15:45 Report Date: 12/17/2024 16:31 At the request of: EMILIANO HILL Procedure: CT chest w con CT CHEST, ABDOMEN AND PELVIS WITH INTRAVENOUS CONTRAST: CLINICAL HISTORY: fall ecchymosis right side anticoag COMPARISON: CT abdomen pelvis 11/23/2023 TECHNIQUE: TECHNIQUE: Spiral images were obtained through the chest, abdomen and pelvis following the administration of IV contrast. This CT exam was performed using one or more following dose reduction techniques: Automated exposure control, adjustment of the mA and/or kV according to patient size, or use of iterative reconstruction technique. FINDINGS: CT chest: Mediastinum:Post CABG changes. Cardiomegaly. Left atrial exclusion device. No pericardial effusion. No bulky adenopathy. Aortic vascular calculations. Lungs:No focal opacity, effusion or pneumothorax. Soft tissues/Bones: [Right posterior 11th rib fracture.] Left sixth rib fractures, subacute with callus formation. Degenerative changes of the thoracic spine. No compression fracture. No right anterior lateral rib fracture deformities with callus formation. Mild soft tissue swelling right posterior lateral flank. Gynecomastia. CT abdomen and pelvis: Organs:Liver, gallbladder, spleen, adrenals, kidneys, pancreas unremarkable. Gallbladder unremarkable.[ GI: Mild reversal. Mild colonic diverticulosis. No bowel obstruction. No pericecal inflammatory changes.[ Pelvis:[Posterior changes hip arthroplasties degrade evaluation due to artifact. Bladder is visualized grossly unremarkable. Prostate mostly obscured.] Peritoneum/Retroperitoneum:No free air or fluid. Moderate plaque involving the nonaneurysmal aorta. Abd wall/Bones:Multilevel disease involving lumbar spine multilevel facet about. Evidence of multilevel laminectomy L4-S1. Prominent disc osteophyte complex L2-3 likely causing canal narrowing at this level. There is soft tissue thickening right lateral flank on the posterior lateral margin of the right and 11 ribs. There is a fracture involving the right posterior 11th rib.[ CT/CT chest w con IMPRESSION: Nondisplaced fracture right posterior 11th rib Left sixth anterolateral rib fracture with callus formation likely subacute. Otherwise chronic right anterior lateral rib fractures noted. Otherwise, no additional evidence of acute posttraumatic process involving chest/abdomen/pelvis Impression dictated by: Ap Paul M.D. 12/17/2024 4:31 PM Dictation Location: [place] [address] Electronically authenticated by: [id number] Y Date: 12/17/2024 16:31
[2024-12-17 15:58] LABS: Alanine Aminotransferase 58 U/L (16-63); Albumin Globulin Ratio 1.1; Albumin Level 3.7 g/dL (3.4-5.0); Alkaline Phosphatase 88 U/L (46-116); Anion Gap 14.3; Aspartate Amino Transferase 20 U/L (15-37); Blood Urea Nitrogen 17.0 mg/dL (7.0-18.0); Calcium 9.0 mg/dL (8.5-10.1); Carbon Dioxide 25.9 mmol/L (21.0-32.0); Chloride 100 mmol/L (98-107); Estimated GFR (African America >60 (>=60 mL/min/1.73m^2); Estimated GFR (Non-African Ame >60 (>=60 mL/min/1.73m^2); Globulin 3.4 g/dL; Glucose 322 mg/dL (74-106); Potassium 4.2 mmol/L (3.5-5.1); Sodium 136 mmol/L (136-145); Total Protein 7.1 g/dL (6.4-8.2)
[2024-12-17 16:03] LABS: Cast Seen? NONE SEEN #/LPF (NONE SEEN); Crystals Seen? None Seen #/HPF (None Seen); Urine Culture Indicated NO
[2024-12-17] MEDS: 0.9 % SODIUM CHLORIDE 1,000 ML 1000 ML IV (17:00)
== END 2024-12-17 18:20 | disposition home or self-care (01) ==
PROVIDERS: Physician Assistant; Emergency Provider Emergency Medicine; PCP Internal Medicine
DX: S22.31XA Fracture of one rib, right side, initial encounter for closed fracture (principal); S30.1XXA Contusion of abdominal wall, initial encounter; Z79.01 Long term (current) use of 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; W01.190A Fall on same level from slipping, tripping and stumbling with subsequent striking against furniture, initial encounter
CPT/HCPCS: 36415; 70450; 71260; 74177; 80053; 81001; 85025; 85610; 85730; 94667; 96374; 99285; J2270; Q9967

== ENCOUNTER 2025-01-14 09:53 | Outpatient (OUT) | payer MEDICARE, OTHER, SELFPAY ==
--- OUTSIDE RECORDS SUMMARY | 2025-01-12 11:04 | XMS_ITS | Continuity of Care Document ---
Author Organization [facility] Address [address] [place] [address] Phone Care Team Providers Care Barrel Ribs Solderer Name Role Phone Coleman Luz DO Primary Care Provider Mihai Mendez II, MD Attending Provider Daisy Mora MD Admit Provider Daisy Mora MD Attending Provider Jonathan Samano MD Attending Provider Marcela Ortiz CMA Attending Provider Viky Casimiro Barton-C Attending Provider Coleman Luz DO Attending Provider [phone] Care Teams Patient Care Team Team Status: Active Member Role Status Dates Coleman Luz DO Primary Care Provider Active Visit Care Team Team Status: Inactive Member Role Status Dates Coleman Luz DO Primary Care Provider Active Start: October 23, 2024 End: October 23, 2024 Mihai Mendez II, MD Attending Provider Active Start: October 23, 2024 End: October 23, 2024 Visit Care Team Team Status: Inactive Member Role Status Dates Coleman Luz DO Primary Care Provider Active Start: October 23, 2024 End: October 23, 2024 Mihai Mendez II, MD Attending Provider Active Start: October 23, 2024 End: October 23, 2024 Visit Care Team Team Status: Inactive Member Role Status Dates Coleman Luz DO Primary Care Provider Active Start: December 09, 2024 End: December 12, 2024 Daisy Mora MD Admit Provider Active St art: December 09, 2024 End: December 12, 2024 Daisy Mora MD Attending Provider Active Start: December 09, 2024 End: December 12, 2024 Visit Care Team Team Status: Inactive Member Role Status Dates Coleman Luz DO Primary Care Provider Active Start: December 15, 2024 End: December 15, 2024 Jonathan Samano MD Attending Provider Active Sta rt: December 15, 2024 End: December 15, 2024 Visit Care Team Team Status: Active Member Role Status Dates Coleman Luz DO Primary Care Provider Active Start: December 15, 2024 Marcela Ortiz CMA Attending Provider Active Start: December 15, 2024 Visit Care Team Team Status: Active Member Role Status Dates Coleman Luz DO Primary Care Provider Active Start: 2024 Casimiro Landaverde PA-C Attending Provider Active St art: 2024 Visit Care Team Team Status: Active Member Role Status Dates Coleman Luz DO Primary Care Provider Active Start: December 18, 2024 Marcela Ortiz CMA Attending Provider Active Start: December 18, 2024 Visit Care Team Team Status: Inactive Member Role Status Dates Coleman Luz DO Primary Care Provider Active Start: December 26, 2024 End: December 26, 2024 Coleman Luz DO Attending Provider Active Sta rt: December 26, 2024 End: December 26, 2024 Visit Care Team Team Status: Inactive Member Role Status Dates Coleman Luz DO Primary Care Provider Active Start: December 29, 2024 End: December 29, 2024 Jonathan Samano MD Attending Provider Active Sta rt: December 29, 2024 End: December 29, 2024 Visit Care Team Team Status: Inactive Member Role Status Dates Coleman Luz DO Primary Care Provider Active Start: January 05, 2025 End: January 05, 2025 Jonathan Samano MD Attending Provider Active Sta rt: January 05, 2025 End: January 05, 2025 Visit Care Team Team Status: Inactive Member Role Status Dates Coleman Luz DO Primary Care Provider Active Start: January 07, 2025 End: January 07, 2025 Mihai Mendez II, MD Attending Provider Active Start: January 07, 2025 End: January 07, 2025 Visit Care Team Team Status: Inactive Member Role Status Dates Coleman Luz DO Primary Care Provider Active Start: January 07, 2025 End: January 07, 2025 Mihai Mendez II, MD Attending Provider Active Start: January 07, 2025 End: January 07, 2025 Patient Care Team Team Status: Inactive Member Role Status Dates Coleman Luz DO Primary Care Provider Active Start: January 12, 2025 End: January 12, 2025 Coleman Luz DO Attending Provider Active Sta rt: January 12, 2025 End: January 12, 2025 Chief Complaint and Reason for Visit Chief Complaint Admit Date Z96.641 - Presence of right artificial h ip joint October 23, 2024 7:53am OP SP INCREASED RTHA PAIN October 23 1:54pm Drug Load December 09, 2024 8:11am Back Pain December 15, 2024 10:51am Amb Documentation December 15, 2024 1:22pm Amb Documentation December 18, 2024 10:35am Cough, broken rib December 26, 2024 9:33am CAUDAL EPIDURAL STEROID INJECTION /VW December 29, 2024 11:55am F/U CAUDAL EPIDURAL STEROID INJECTION Se ptember 2024 9:45am OP SP RTHA PAIN January 07, 2025 12 :22pm Z96.641 - January 07, 2025 1: 51pm leg wound January 12, 2025 2: 23pm Reason for Visit Admit Date Greater trochanteric bursitis of right h ip October 23, 2024 1:54pm History of total right hip arthroplasty October 23, 2024 1:54pm Persistent atrial fibrillation December 09, 2024 8:11am Low back pain December 15, 2024 10:51am Other chronic pain December 15, 2024 10:51am Other spondylosis with radiculopathy, [facility] December 15, 2024 10:51am Acute bronchitis due to other specified organisms December 26, 2024 9:33am Rib fracture December 26, 2024 9:33am Laceration of leg excluding thigh, with complication December 26, 2024 9:33am Cellulitis of leg without foot, left Sep tember 2024 9:33am Low back pain January 05, 2025 9:45am Other chronic pain January 05, 2025 9:45am Other [facility] January 05, 2025 9:45am Greater trochanteric bursitis of right h ip January 07, 2025 12:22pm History of total right hip arthroplasty January 07, 2025 12:22pm Reason for Referral Referring Provider Name Referring Provider Address Referring Provider Phone Referral Date Requested Appointment Date Referral Reason Daisy Mora [address] [facility] [address] [facility] [address] Work Phone: EKG - we will call you with appointment EKG - we w ill call you with appointment Health Concerns Concerns A [facility] screening has identified you as FRAIL or [...] Four Ways to Beat the Frailty Risk [email or web address] Allergies, Adverse Reactions, Alerts Allergen Type Severity Reaction Last Updated Verified Status No Known Allergies Allergy Unknown January 12, 2025 2:2 6pm Yes Active Social History Smoking Status Status Start Date End Date Date of Observa tion Never smoked tobacco (finding) December 09, 2024 12:05pm Observation Status Observation Response Date of Response Legal Sex Male (finding) Sex Assigned At Male 1960 Family History Relationship Condition Age at Onset Recorded Date/T daren mother Heart disease Unknown Calculus of kidney Unknown Unknown Presence of cardiac pacemaker Unknown Cerebrovascular accident (CVA) Unknown father History of coronary artery stent placement Unknown Coronary artery disease Unknown Unknown brother Unknown Exposure to Agent Coleman Unknown brother Cerebral aneurysm Unknown Problems Active Problems Medical Problem Onset Date Status Comments Polymyalgia rheumatica Unknown Active Inflammatory polyarthritis Unknown Active History of revision of total replacement of left hip joint Unknown Active Presence of Watchman left at rial appendage closure device Unknown Active Gastroesophageal reflux dise ase with esophagitis without hemorrhage Unknown Active Pseudogout Unknown Active FER (obstructive sleep apnea) Unknown Active GENESIS (generalized anxiety disorder) Unknown Active Greater trochanteric bursiti s 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 Unknown Active Primary osteoarthritis, right hand Unknown Active Primary osteoarthritis 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 Unknown Activ e Low back pain Unknown Active Other spondylosis with radic ulopathy, lumbar region Unknown Active Rib fracture Unknown Active Atrial fibrillation Unknown Active s/p LAAO procedure - 01/2024,Echo: LVEF 45%, CHARISSA, normal RV size/function - 08/2024,DCCV: 09/2024, 12/2024 Cough Unknown Active Hypercholesterolemia Unknown Active Hyperlipidemia Unknown Active Hypothyroid Unknown Active Chronic HFrEF (heart failure with reduced ejection fraction) Unknown Active History of total right hip arthroplasty Unknown Active Other chronic pain Unknown Active Abnormal cardiovascular stress test Unknown Activ e Persistent atrial fibrillation Unknown Active Chest wall contusion Unknown Active 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 Unknown Active Right knee pain Unknown Active Macrocytosis without anemia Unknown Active Acute bronchitis due to othe r specified organisms Unknown Active Vitamin D deficiency Unknown Active Lumbar spondylosis Unknown Active ASHD (arteriosclerotic heart disease) Unknown Act mallory PCI/stent (prior to 2014),CABG x 2014,Stress NM: LVEF 33%, inferolateral fixed defect - 08/2024,LHC: LVEF 35%, patent grafts - 09/2024PCI/stent (prior to 2014) Hypomagnesemia Unknown Active Inactive/Resolved Problems Medical Problem Onset Date Status Comments MIESHA (acute kidney injury) Unknown Resolved Acute hypotension Unknown Resolved Unstable angina Unknown Resolved Contusion Unknown Resolved Ischemic cardiomyopathy Unknown Resolved Atypical chest pain Unknown Resolved Pre-syncope Unknown Resolved Primary hypertension Unknown Resolved Elevated lactic acid level Unknown Resolved Blurred vision, bilateral Unknown Resolved Chest pain Unknown Resolved Medications Medication Status Dose Units Route Directions Qty Days St art Date Stop Date End Date Instructions Adherence Alprazolam 0.5 mg tablet Discont inued 0.5 MG PO Daily at bedtime 2023 1:21pm Augus t 2023 5:13p m Escitalopra m Oxalate 10 mg tablet Discont inued 0 .ROUTE .COMPLEX June 28, 2023 3:06pm June 29, 2023 10:36 am TAKE 1 TABLET BY MOUTH EVERY DAY FOR 90 DAYS Atorvastati n 80 mg tablet Discont inued 0 .ROUTE .COMPLEX September 19, 2023 12:53p m July 02, 2024 6:52a m TAKE 1 TABLET BY MOUTH ONCE EVERY EVENING Sod Picosulf-Ma g Ox-Citric Ac (Clenpiq) 10 mg-3.5 gram- 12 gram/175 mL solution Discont inued 175 ML PO Every morning 350 1 December 06, 2023 12:00a m [facility] 2023 10:38 am Follow instructions given by office Alprazolam 0.5 mg tablet Discont inued 0.5 MG PO Daily at bedtime December 07, 2023 5:12pm July 01, 2024 1:58p m Apixaban (Eliquis) 5 mg tablet Discont inued 0 .ROUTE .COMPLEX 60 [facility] 2023 9:55pm [facility] 2023 12:15 pm TAKE 1 TABLET BY MOUTH EVERY MORNING AND BEFORE BEDTIME FOR 30 DAYS Methylpredn isolone (Medrol) 4 mg tablet Discont inued 4 MG PO Twice daily 60 [facility] 2023 2:52pm [facility] 2023 12:15 pm Escitalopra m Oxalate 20 mg tablet Discont inued 0 .ROUTE .[facility] 90 [facility] 2023 5:50pm June 14, 2024 5:03p m TAKE 1 TABLET BY MOUTH EVERY DAY Valacyclovi r 500 mg tablet Discont inued 0 .ROUTE .COMPLEX 90 [facility] 2023 1:29pm October 02, 2024 7:45a m TAKE 1 TABLET BY MOUTH EVERY DAY Allopurinol 100 mg tablet Discont inued 0 .ROUTE .COMPLEX 90 [facility] 2023 2:35pm September 30, 2024 4:44p m TAKE 1 TABLET BY MOUTH EVERY DAY Levothyroxi ne 150 mcg tablet Active 0 .ROUTE .COMPLEX 90 [facility] 2023 10:44a m TAKE 1 TABLET BY MOUTH EVERY DAY Complies with drug therapy Metoprolol Succinate 50 mg tablet extended release 24 hr Discont inued 0 .ROUTE .COMPLEX 90 [facility] 2023 10:45a m [facility] 2024 8:37a m TAKE 1 TABLET BY MOUTH EVERY DAY Methylpredn isolone 4 mg tablet Discont inued 4 MG PO Twice daily 60 30 Dece er 2023 1:00am [facility] 2023 10:17 am Methylpredn isolone 4 mg tablet Discont inued 0 .ROUTE .COMPLEX 60 [facility] 2023 10:17a m August 11, 2024 3:23p m TAKE 1 TABLET BY MOUTH TWICE A DAY FOR 30 DAYS Amoxicillin 500 mg capsule Discont inued 2000 MG PO As Directed 4 Decemb er 2023 1:00am August 11, 2024 2:39p m Benzonatate 200 mg capsule Discont inued 200 MG PO Three times daily 30 2024 1:00am August 01, 2024 11:12 am Escitalopra m Oxalate 20 mg tablet Discont inued 0 .ROUTE .COMPLEX June 14, 2024 5:03pm September 29, 2024 4:03a m TAKE 1 TABLET BY MOUTH EVERY DAY Atorvastati n 80 mg tablet Discont inued 0 .ROUTE .COMPLEX July 02, 2024 6:52am September 29, 2024 4:03a m TAKE 1 TABLET BY MOUTH ONCE EVERY EVENING Meloxicam 15 mg tablet Discont inued 15 MG PO daily September 02, 2024 12:00a m September 08, 2024 11:58 am Doxycycline Hyclate 100 mg capsule Discont inued 100 MG PO Twice daily September 12, 2024 12:00a m September 29, 2024 4:03a m Valacyclovi r 500 mg tablet Active 0 .ROUTE .COMPLEX October 02, 2024 7:45am TAKE 1 TABLET BY MOUTH EVERY DAY Complies with drug therapy Escitalopra m Oxalate 20 mg tablet Active 0 .ROUTE .COMPLEX 90 2024 8:57pm TAKE 1 TABLET BY MOUTH EVERY DAY Complies with drug therapy Pantoprazol e 40 mg tablet,annalise yed release (DR/EC) Active 0 .ROUTE .COMPLEX 90 2024 8:36am TAKE 1 TABLET BY MOUTH EVERY DAY Complies with drug therapy Metoprolol Succinate 50 mg tablet extended release 24 hr Active 0 .ROUTE .COMPLEX 2024 8:36am TAKE 1 TABLET BY MOUTH EVERY DAY Complies with drug therapy Oxycodone-A cetaminophe n (Percocet) 5-325 mg tablet Discont inued 1 TAB PO Q8H as needed for pain 10 3 2022 Octob er 2022 11:02 am Methylpredn isolone (Medrol) 4 mg tablet Discont inued 4 MG PO Twice daily August 01, 2023 12:00a m Septe [facility] 2023 2:53p m Colchicine 0.6 mg capsule Discont inued 0.6 MG PO .every other day August 02, 2023 12:00a m Septe [facility] 2023 9:21a m Amoxicillin -Pot Clavulanate 875-125 mg tablet Discont inued 1 TAB PO Twice daily 20 10September 01, 2023 10:30a m Augus t 2023 2:23p m Levothyroxi ne (Synthroid) 25 mcg Tablet Discont inued 25 MCG PO Daily [facility] 2016 12:00a m June 20, 2021 1:26p m Atorvastati n (Lipitor) 80 mg Tablet Discont inued 80 MG PO Daily at bedtime [facility] 2016 12:00a m September 19, 2023 12:53 pm Aspirin 81 mg Tablet,Annalise yed Release (/Ec) Discont inued 81 MG PO Daily [facility] 2016 12:00a m August 13, 2024 3:20p m Acetaminoph en (Tylenol Arthritis Pain) 650 mg Tablet Extended Release Discont inued 1300 MG PO Twice daily [facility] 2016 12:00a m [facility] 2022 10:43 am Alprazolam (Xanax) 0.25 mg Tablet Discont inued 0.25 MG PO Daily at bedtime [facility] 2016 12:00a m Febru ugo 2023 1:08p m Lisinopril 10 mg Tablet Discont inued 10 MG PO Daily [facility] 2016 12:00a m June 20, 2021 1:24p m Metoprolol Succinate (Toprol Xl) 25 mg Tablet Extended Release 24 Hr Discont inued 25 MG PO Daily [facility] 2016 12:00a m June 20, 2021 1:27p m Celecoxib 200 mg capsule Discont inued 200 MG PO Every morning June 20, 2021 [facility] 11:00 am Metoprolol Succinate 50 mg tablet extended release 24 hr Discont inued 50 MG PO Every morning June 20, 2021 12:00a m Decem [facility] 2023 10:45 am Allopurinol 100 mg tablet Discont inued 100 MG PO Every morning June 20, 2021 12:00a m Septe er 2023 2:35p m Valacyclovi r 500 mg tablet Discont inued 500 MG PO Every morning June 20, 2021 12:00a m Septe er 2023 1:30p m Triamterene -Hydrochlor othiazid 37.5-25 mg capsule Discont inued 1 CAP PO Every morning June 20, 2021 12:00a m June 28, 2023 4:16p m Levothyroxi ne (Synthroid) 150 mcg tablet Discont inued 150 MCG PO Every morning June 20, 2021 12:00a m [facility]ila 2023 10:44 am Irbesartan 150 mg tablet Discont inued 150 MG PO Every morning June 20, 2021 12:00a m June 28, 2023 4:16p m Methylpredn isolone 4 mg tablet Discont inued 4 MG PO Every morning [facility] 2022 12:00a m Febru ugo 2023 2:35p m Escitalopra m Oxalate 10 mg tablet Discont inued 10 MG PO Daily at bedtime [facility] 2022 12:00a m June 28, 2023 3:07p m Methylpredn isolone 4 mg tablet Discont inued 4 MG PO Daily August 11, 2024 12:00a m August 19, 2024 4:09p m Valsartan 160 mg Tablet Discont inued 160 MG PO Daily August 13, 2024 12:00a m September 08, 2024 11:58 am Clopidogrel 75 mg Tablet Discont inued 75 MG PO Daily August 13, 2024 12:00a m September 29, 2024 4:03a m Apixaban (Eliquis) 5 mg Tablet Discont inued 5 MG PO Twice daily August 13, 2024 12:00a m September 29, 2024 4:03a m Methylpredn isolone 4 mg tablet Discont inued 4 MG PO Twice daily September 08, 2024 12:00a m September 09, 2024 10:10 am Spironolact on-Hydrochl orothiaz 25-25 mg tablet Discont inued 1 TAB PO Daily September 08, 2024 12:00a m October 01, 2024 12:06 pm Aspirin 81 mg tablet Active 81 MG PO Daily September 08, 2024 12:00a m Complies with drug therapy Valsartan 160 mg Tablet Discont inued 80 MG PO Daily September 08, 2024 12:00a m September 09, 2024 10:12 am Atorvastati n 80 mg Tablet Active 80 MG PO Every evening September 29, 2024 12:00a m Complies with drug therapy Isosorbide Mononitrate 30 mg Tablet Extended Release 24 Hr Discont inued 30 MG PO Every morning September 29, 2024 12:00a m Octob er 2024 1:33p m Magnesium Oxide 400 mg (241.3 mg magnesium) Tablet Active 400 MG PO Daily September 29, 2024 12:00a m Complies with drug therapy Nitroglycer in 0.4 mg Tablet, Sublingual Active 0.4 MG SUBLIN GUAL Q5M as needed for Chest Pain September 29, 2024 12:00a m Complies with drug therapy Valsartan 40 mg Tablet Discont inued 40 MG PO Daily September 29, 2024 12:00a m October 08, 2024 2:05p m Allopurinol 100 mg tablet Active 200 MG PO Daily September 30, 2024 12:00a m Complies with drug therapy Spironolact one 25 mg Tablet Active 12.5 MG PO Daily October 01, 2024 12:00a m Complies with drug therapy Dapaglifloz in Propanediol 10 mg Tablet Discont inued 10 MG PO Daily October 01, 2024 12:00a m October 08, 2024 2:00p m Escitalopra m Oxalate 20 mg tablet Discont inued 20 MG PO Daily at bedtime 2024 12:00a m Septe mber 2024 8:57p m Apixaban (Eliquis) 5 mg tablet Discont inued 5 MG PO Twice daily 2024 12:00a m Octob er 2024 1:32p m Dofetilide 125 mcg Capsule Active 125 MCG PO Every 12 hours 60 30 Septem 2024 12:00a m Complies with drug therapy Albuterol Sulfate 90 mcg/actuati on HFA aerosol inhaler Discont inued 2 PUFF INHALA TION Every 6 hours June 28, 2023 12:00a m August 02, 2023 9:18a m Diazepam 5 mg tablet Discont inued 5 MG PO Daily June 28, 2023 12:00a m August 02, 2023 9:17a m Apixaban 5 mg tablet Discont inued 5 MG PO Twice daily June 28, 2023 12:00a m Septe [facility] 2023 9:55p m Mupirocin 2 % ointment Discont inued 1 APPLIC TOPICA L Twice daily June 28, 2023 12:00a m August 02, 2023 9:18a m Sildenafil 100 mg tablet Discont inued 100 MG PO Daily as needed for sexual activity June 28, 2023 12:00a m August 11, 2024 2:41p m Escitalopra m Oxalate 20 mg tablet Discont inued 20 MG PO Daily 90 90 June 29, 2023 10:35a m Septe [facility] 2023 5:50p m Doxycycline Hyclate 100 mg capsule Discont inued 100 MG PO Twice daily 10 Decemb er 2023 1:00am 2024 3:47p m Codeine-Gua ifenesin 10-100 mg/5 mL liquid Discont inued 10 ML PO Every 6 hours as needed for cough 200 5 Decemb er 2023 1:00am August 01, 2024 11:12 am Meloxicam 15 mg tablet Discont inued 15 MG PO daily August 06, 2024 12:00a m September 29, 2024 4:03a m Diclofenac Sodium 1 % gel Discont inued 2 GM TOPICA L .4-5 times a day as needed for knee pain 05 08August 06, 2024 12:00a m September 29, 2024 4:03a m Alprazolam 0.5 mg tablet Discont inued 0.5 MG PO Daily at bedtime ua 2023 1:00am Febru ugo 2023 1:22p m Celecoxib 200 mg capsule Discont inued 200 MG PO Daily June 28, 2023 12:00a m June 28, 2023 4:15p m Clopidogrel 75 mg tablet Discont inued MG PO Novemb er 2023 1:00am August 01, 2024 11:12 am Doxycycline Hyclate 100 mg capsule Discont inued 100 MG PO Twice daily 2024 3:47pm August 01, 2024 11:12 am Alprazolam 0.5 mg tablet Active 0.5 MG PO Daily at bedtime July 01, 2024 1:57pm Complies with drug therapy Omeprazole 40 mg capsule,del ayed release(DR/ EC) Discont inued 40 MG PO Daily July 01, 2024 12:00a m July 01, 2024 4:31p m Pantoprazol e 40 mg tablet,annalise yed release (DR/EC) Discont inued 40 MG PO Daily July 01, 2024 12:00a m Septe er 2024 8:37a m Amoxicillin -Pot Clavulanate 875-125 mg tablet Discont inued 1 TAB PO Every 12 hours 26 01July 30, 2024 12:00a m August 11, 2024 2:39p m Methylpredn isolone (Medrol) 8 mg tablet Discont inued 4 MG PO Daily October 08, 2024 12:00a m Octob er 2024 2:27p m Colchicine 0.6 mg capsule Discont inued 0.6 MG PO Daily October 08, 2024 12:00a m October 08, 2024 2:42p m Doxycycline Hyclate 100 mg capsule Discont inued 100 MG PO Twice daily 20 2024 12:00a m Octob er 2024 1:32p m Mupirocin 2 % ointment Discont inued 1 APPLIC TOPICA L Twice daily 22 2024 12:00a m Octob er 2024 1:33p m Immunizations Immunization Event Date Not Given Reason Dose Number 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 Lot Number Vaccine Information Statement (VIS) Detail Administration Location COVID-19 Candy David ([employer]) June 04, 2020 COVID-19 mRNACandy ([employer]) March 9th, 2021 COVID-19 mRNA, Comirnaty (Pfizer) April 11, 2021 COVID-19 mRNA, Comirnaty (Pfizer) June 25, 2020 DTap, unspecified May 14, 2020 Influenza, trivalent January 18, 2021 Influenza Quadrivalent MDCK with preservative January 21, 2018 influenza, unspecified formulation January 21, 2018 influenza, unspecified formulation January 02, 2019 influenza, unspecified formulation January 13, 2020 influenza, unspecified formulation January 18, 2021 Quadrivalent Influenza February 06, 2022 Quadrivalent Influenza April 05, 2023 Medical Equipment Device Date Implanted Device Details Acetabular shell July 04, 2021 CARL: [id number] Issuing Agency: [facility] Device Id: [id number] Expiration Date: 2030-07-30 Lot Number: [id number] Ceramic femoral head prosthesis July 04, 2021 CARL: [id number] Issuing Agency: [facility] Device Id: [id number] Expiration Date: 2031-03-09 Lot Number: [id number] Coated hip femur prosthesis, modular July 04, 2021 CARL: [id number] Issuing Agency: [facility] Device Id: [id number] Expiration Date: 2025-12-20 Lot Number: [id number] Non-constrained polyethylene acetabular liner July 04, 2021 CARL: [id number] Issuing Agency: [facility] Device Id: [id number] Expiration Date: 2026-05-04 Lot Number: [id number] Acetabular shell February 13, 2023 CARL: [id number] Issuing Agency: [facility] Device Id: [id number] Expiration Date: 2032-04-30 Lot Number: [id number] Ceramic femoral head prosthesis February 13 CARL: [id number] Issuing Agency: [facility] Device Id: [id number] Expiration Date: 2032-07-27 Lot Number: [id number] Coated hip femur prosthesis, modular February 13, 2023 CARL: [id number] Issuing Agency: [facility] Device Id: [id number] Expiration Date: 2027-07-26 Lot Number: [id number] Non-constrained polyethylene acetabular liner February 13, 2023 CARL: [id number] Issuing Agency: [facility] Device Id: [id number] Expiration Date: 2027-08-28 Lot Number: [id number] Procedures Procedure Date Performed Status XR hip RT min 2V(w/wo pelvis)* October 23, 2024 2 :06pm completed Denominational of Cardiac Rhythm, Single December 09, 2024 active XR hip RT min 2V(w/wo pelvis)* January 07, 2025 1:51pm completed XR knee RT 3V - NOT FOR ER USE January 07, 2025 1:51pm completed Relevant Diagnostic Tests and/or Laboratory Data Laboratory Results Test Collection Date/Time Result Date/Time Result Interpretation Reference Range Result Comment Performing Site Activate d Partial Thrombop last Time 2024 3:18pm 2024 3:18pm 24.8 sec 22.3-36.2 Prothrom b Time Internat ional Ratio 2024 3:18pm 2024 3:18pm 1.06 DESIRED INR:2.0-3.0 CONDITIONS NOT LISTED BELOW2.5-3. 5 FOR PROSTHETIC HEART VALVE REPLACEMENT 2.5-3.5 RECURRENT THROMBOSIS Anion Gap 2024 3:18pm 2024 3:18pm 14.3 Basophil s # (Auto) 2024 3:18pm 2024 3:18pm 0.0 10 3/uL 0.0-0.1 Urine Culture Reflexed 2024 3:20pm NO Prothrom bin Time 2024 3:18pm 2024 3:18pm 11.2 sec 9.0-11.6 Albumin/ Globulin Ratio 2024 3:18pm 2024 3:18pm 1.1 Basophil s (%) (Auto) 2024 3:18pm 2024 3:18pm 0.3 % 0.2-2.0 Urine Other Casts 2024 3:20pm NONE SEEN #/LPF NONE SEEN Albumin 2024 3:18pm 2024 3:18pm 3.7 g/dL 3.4-5.0 Eosinoph ils # (Auto) 2024 3:18pm 2024 3:18pm 0.0 10 3/uL 0.0-0.7 Urine Other Crystals 2024 3:20pm None Seen #/HPF None Seen Alkaline Phosphat ase 2024 3:18pm 2024 3:18pm 88 U/L 46-116 Eosinoph ils (%) (Auto) 2024 3:18pm 2024 3:18pm 0.1 % Below low normal 0.9-7.0 Urine Bacteria 2024 3:20pm NONE SEEN #/HPF NONE SEEN Alanine Aminotra nsferase (ALT/SGP T) 2024 3:18pm 2024 3:18pm 58 U/L 16-63 Hematocr it 2024 3:18pm 2024 3:18pm 43.4 % 42.0-54.0 Urine Bilirubi n 2024 3:20pm NEGATIVE NEGATIVE Aspartat e Amino Transf (AST/SGO T) 2024 3:18pm 2024 3:18pm 20 U/L 15-37 Hemoglob in 2024 3:18pm 2024 3:18pm 15.2 g/dL 14.0-18.0 Urine Occult Blood 2024 3:20pm NEGATIVE NEGATIVE BUN/Crea tinine Ratio 2024 3:18pm 2024 3:18pm 19.3 Immature Granuloc yte # (Auto) 2024 3:18pm 2024 3:18pm 0.22 10 3/uL Above high normal 0.00-0.03 Urine Appearan ce 2024 3:20pm CLEAR CLEAR Blood Urea Nitrogen 2024 3:18pm 2024 3:18pm 17.0 mg/dL 7.0-18.0 Immature Granuloc yte % (Auto) 2024 3:18pm 2024 3:18pm 1.9 % Above high normal 0.0-0.5 Urine Color 2024 3:20pm LT. YELLOW YELLOW Calcium Level 2024 3:18pm 2024 3:18pm 9.0 mg/dL 8.5-10.1 Lymphocy alaina # (Auto) 2024 3:18pm 2024 3:18pm 1.2 10 3/uL 1.2-3.8 Urine Glucose (UA) 2024 3:20pm >=1000 mg/dL Abnormal (applies to non-numeric results) NEGATIVE Chloride Level 2024 3:18pm 2024 3:18pm 100 mmol/L 98-107 Lymphocy alaina (%) (Auto) 2024 3:18pm 2024 3:18pm 9.8 % Below low normal 20.5-60.0 Urine Ketones 2024 3:20pm NEGATIVE mg/dL NEGATIVE Carbon Dioxide Level 2024 3:18pm 2024 3:18pm 25.9 mmol/L 21.0-32.0 Mean Corpuscu lar Hemoglob in 2024 3:18pm 2024 3:18pm 35.1 pg Above high normal 25.9-34.0 Urine Leukocyt e Esterase 2024 3:20pm NEGATIVE NEGATIVE Creatini ne 2024 3:18pm 2024 3:18pm 0.88 mg/dL 0.70-1.30 Mean Corpuscu lar Hemoglob in Concent 2024 3:18pm 2024 3:18pm 35.0 g/dL 29.9-35.2 Urine Mucus 2024 3:20pm NONE SEEN NONE SEEN Estimate d GFR ( ) 2024 3:18pm 2024 3:18pm >60 >=60 mL/min/1.7 3m 2 Mean Corpuscu lar Volume 2024 3:18pm 2024 3:18pm 100.2 fL Above high normal 80.0-94.0 Urine Nitrite 2024 3:20pm NEGATIVE NEGATIVE Estimate d GFR (Non-Afr ican Nigerien 2024 3:18pm 2024 3:18pm >60 >=60 mL/min/1.7 3m 2 Monocyte s # (Auto) 2024 3:18pm 2024 3:18pm 0.8 10 3/uL 0.3-0.8 Urine pH 2024 3:20pm 7.0 5.0-9.0 Globulin 2024 3:18pm 2024 3:18pm 3.4 g/dL Monocyte s (%) (Auto) 2024 3:18pm 2024 3:18pm 6.7 % 1.7-12.0 Urine Protein 2024 3:20pm NEGATIVE mg/dL NEG/TRACE Glucose Level 2024 3:18pm 2024 3:18pm 322 mg/dL Above high normal 74-106 Mean Platelet Volume 2024 3:18pm 2024 3:18pm 10.4 fL 9.5-13.5 Urine RBC 2024 3:20pm NONE SEEN #/HPF 0-2 Potassiu m Level 2024 3:18pm 2024 3:18pm 4.2 mmol/L 3.5-5.1 Neutroph ils # (Auto) 2024 3:18pm 2024 3:18pm 9.6 10 3/uL Above high normal 1.4-6.5 Urine Specific [place] 2024 3:20pm 1.010 1.005-1.02 5 Sodium Level 2024 3:18pm 2024 3:18pm 136 mmol/L 136-145 Neutroph ils (%) (Auto) 2024 3:18pm 2024 3:18pm 81.2 % Above high normal 43.0-75.0 Urine Squamous Epitheli al Cells 2024 3:20pm RARE #/LPF NONE/RARE Total Bilirubi n 2024 3:18pm 2024 3:18pm 1.0 mg/dL 0.2-1.0 Platelet Count 2024 3:18pm 2024 3:18pm 167 10 3/uL 150-450 Urine Urobilin ogen 2024 3:20pm 0.2 EU/dL 0.2-1.0 Total Protein 2024 3:18pm 2024 3:18pm 7.1 g/dL 6.4-8.2 Red Blood Count 2024 3:18pm 2024 3:18pm 4.33 10 6/uL Below low normal 4.70-6.10 Urine WBC 2024 3:20pm NONE SEEN #/HPF NONE SEEN Red Cell Distribu tion Width 2024 3:18pm 2024 3:18pm 13.7 % 11.0-15.0 Correcte d White Blood Count 2024 3:18pm 2024 3:18pm 11.8 10 3/uL Above high normal 4.0-11.0 Prothrom bin Time December 12, 2024 4:54am December 12, 2024 6:15am 14.6 s Above high normal 9.0-12.9 A hematocrit value greater than 55% may lead to inaccurate results in coagulation testing. Patients having hematocrit values >55% require a special collection tube for coagulation studies. Please contact the laboratory at for redraw instruction s. [facility] [id number] [address] [place] [address] Prothrom b Time Internat ional Ratio December 12, 2024 4:54am December 12, 2024 6:15am 1.3 INR Therapeutic Range A) Pre- and Peroperativ e OAT started two weeks before surgery. NOT HIP SURGERY: 1.5 - 2.5 HIP SURGERY: 2 - 3B) Primary and secondary prevention of venous THROMBOSIS: 2 - 3C) Active venous thrombosis, pulmonary embolismand prevention of recurrent venous thrombosis: 2 - 3D) Prevention of arterial thromboembo lismincludi ng patients with mechanical heart valves: 3 - 4.5 [facility] [id number] [address] [facility] [address] Glucose Level December 09, 2024 9:06am December 09, 2024 9:36am 190 mg/dL Above high normal 70-100 ADA recommended reference rangeRandom Glucose Reference Range is dependent on time and content of last meal. Glucose of more than 200 mg/dL in a nonstressed , ambulatory subject supports the diagnosis of Diabetes Mellitus. [facility] [id number] [address] [place] [id number] Blood Urea Nitrogen December 09, 2024 9:06am December 09, 2024 9:36am 15 mg/dL 7-25 [facility] [id number] [address] [place] [id number] Creatini ne December 09, 2024 9:06am December 09, 2024 9:36am 0.84 mg/dL 0.70-1.30 [facility] [id number] [address] [place] [address] Estimate d GFR (CKD-EPI ) December 09, 2024 9:06am December 09, 2024 9:36am > 60.0 mL/Min [facility] [id number] [address] [place] [id number] Sodium Level December 11, 2024 4:31am December 11, 2024 5:04am 136 mmol/L 136-145 [facility] [id number] [address] [place], [place] [id number] Potassiu m Level December 11, 2024 4:31am December 11, 2024 5:04am 4.2 mmol/L 3.5-5.1 [facility] [id number] [address] [place] [id number] Chloride Level December 11, 2024 4:31am December 11, 2024 5:04am 102 mmol/L 98-107 [facility] [id number] [address] [place] [id number] Carbon Dioxide Level December 11, 2024 4:31am December 11, 2024 5:04am 29.5 mmol/L 21.0-31.0 [facility] [id number] [address] [place], [place] [id number] Anion Gap December 11, 2024 4:31am December 11, 2024 5:04am 8.7 mEq/L 6.0-15.0 [facility] [id number] [address] [facility] [address] Calcium Level December 09, 2024 9:06am December 09, 2024 9:36am 8.7 mg/dL 8.6-10.3 [facility] [id number] [address] [place] [address] Pharmacy Creatini ne Clearanc e (Chem December 09, 2024 9:06am December 09, 2024 9:36am N/A [facility] [id number] [address] [place] [address] Diagnostic Imaging Reports Author Rubio Vazquez [facility] Authored October 23, 2024 7:55 pm Report Dictated Date/Time Dictated By Status Radiology Report October 23, 2024 7:55pm Rubio Vazquez II MD completed [facility] [address] [place] [address] XRay Report Signed Patient: César Marsh MR#: [id number] : 1960 Acct:[id number] Age/Sex: 63 / M ADM Date: 5 Loc: [facility] [place] Room: Type: [facility] Attending Dr: Mihai Mendez II, MD Copies to: Mihai Mendez MD~ Ordering Provider: Mihai Mendez MD Date of Service: 10/23/24 XR/XR [...] Vazquez M.D. 10/23/2024 7:56 PM Dictation Location: [place] [address] Transcribed By: [facility] 10/23/241955 Dictated By: Rubio Vazquez II, MD 10/23/241954 Signed By: <Electronically signed by Rubio Vazquez II, MD in [place]> 10/23/241955 Author Matt Ferrell [facility] Authored January 07, 2025 4: 26pm Report Dictated Date/Time Dictated By Status Radiology Report January 07, 2025 4:26pm Matt Naik rd , DO completed [facility] [place] [facility] [address] [place] [address] XRay Report Signed Patient: César Marsh MR#: [id number] : 1960 Acct:[id number] Age/Sex: 64 / M ADM Date: 5 Loc: [facility] [place] Room: Type: [facility] Attending Dr: Mihai Mendez II, MD Copies to: Mihai Mendez MD~ Ordering Provider: Mihai Mendez MD Date of Service: 01/07/25 XR/XR hip RT min 2V(w/wo pelvis)*: Z96.641 - ([id number]) XR/XR knee RT 3V - NOT FOR ER USE: Z96.641 - History: right anterior knee and right posterior hip pain secondary to fall 3 weeks ago 3 views right knee with comparison 05/21/23. Right knee arthroplasty. No hardware complication. Adequate bony alignment without acute displaced fracture. No joint effusion. Minor atherosclerosis. 2 views right hip a single view pelvis. Bilateral hip arthroplasties. No hardware complication. Adequate bony alignment without acute displaced fracture. XR/XR knee RT 3V - NOT FOR ER USE IMPRESSION: Uncomplicated right knee arthroplasty. Uncomplicated right hip arthroplasty. No acute displaced fracture. Impression dictated by: Matt Ferrell M.D. 01/07/2025 4:29 PM Dictation Location: [facility]20 Transcribed By: [facility] 01/07/251628 Dictated By: Matt Ferrell DO 01/07/251625 Signed By: <Electronically signed by Matt Ferrell DO in [place]> 01/07/25 162 Vital Signs Vital Reading Result Reference Range Collection Date/Time BP Systolic 126 mm[Hg] 100-140 October 23, 2024 2:28pm BP Diastolic 78 mm[Hg] 60-100 October 23, 2024 2:28pm Height 70.5 [in_i] December 11, 2024 12:53pm Weight 98.00 kg December 12, 2024 6:00am Body Temperature 97.9 [degF] 97.6-99.0 December 122024 4:00am Heart Rate 77 /min 60-100 December 12, 2024 8:00am Respiratory rate 16 /min -December 122024 8:00am Oxygen saturation by Pulse oximetry 98 % 95-100 December 12, 2024 8:00am BP Systolic 127 mm[Hg] 100-140 December 12, 2024 8:00am BP Diastolic 83 mm[Hg] 60-100 December 12, 2024 8:00am Height 70.5 [in_i] December 26, 2024 9:43am Weight 100.41 kg December 26, 2024 9:43am Heart Rate 76 /min 60-100 December 26, 2024 9:43am Respiratory rate 12 /min -December 082024 9:43am BP Systolic 123 mm[Hg] 100-140 December 26, 2024 9:43am BP Diastolic 81 mm[Hg] 60-100 December 26, 2024 9:43am BMI (Body Mass Index) 31.3 kg/m2 2024 9:43am Height 70.5 [in_i] January 07 1:30pm Weight 100.41 kg January 07 1:30pm Heart Rate 61 /min 60-100 January 07 1:30pm BP Systolic 129 mm[Hg] 100-140 January 07 1:30pm BP Diastolic 80 mm[Hg] 60-100 January 07 1:30pm BMI (Body Mass Index) 31.3 kg/m2 2024 1:30pm Height 70.5 [in_i] January 12 2:31pm Weight 97.74 kg January 12 2:31pm Heart Rate 80 /min 60-100 January 12 2:31pm Respiratory rate 12 /min -January 2:31pm BP Systolic 130 mm[Hg] 100-140 January 12 2:31pm BP Diastolic 81 mm[Hg] 60-100 January 12 2:31pm BMI (Body Mass Index) 30.4 kg/m2 Octobe r 2024 2:31pm Advance Directives Advance Directive Response Recorded Date/ Time Advance Directives No January 25, 2017 2:08pm Insurance Providers Guarantor César Marsh Address [address] [place], [place] [address] [facility] [address] Contact Info. Home Phone: Payer Policy Id Subscriber's Name Subscriber Id Effectiv e Date Expiration Date [facility] [id number] César Marsh [id number] [facility]/BS [id number] Verenice Marsh [id number] Encounters Encounter Location(s) Arrival/Admit Date Discharge /Depart Date Provider(s) Departed Clinical -[facility] October 23, 2024 7:53am October 23, 2024 7:54am Harmony Pierce MD Departed Physician/[place]vi [place] Office Visit -[facility] October 23, 2024 1:54pm October 23, 2024 3:18pm Harmony Pierce MD Discharged Inpatient -[facility] December 09, 2024 8:11am December 12, 2024 11:02am Daisy Mora MD Departed Physician/Provi [place] Office Visit -[facility] December 15, 2024 10:51am December 15, 2024 11:27am Jimi Clemens MD Non-patient / Non-visit -[facility] December 15, 2024 1:22pm Marcela Ortiz CMA Non-patient / Non-visit -[place] [employer] 2024 3:18pm Harmony LeungC Non-patient / Non-visit -[facility] December 18, 2024 10:35am Marcela Ortiz CMA Departed Physician/[place] Office Visit -[facility] December 26, 2024 9:33am December 26, 2024 9:59am Coleman Luz DO Departed Physician/[place]vi [place] Office Visit -[facility] December 29, 2024 11:55am December 29, 2024 11:59pm Jimi Clemens MD Departed Physician/Provi [place] Office Visit -[facility] January 05, 2025 9:45am January 05, 2025 10:19am Jimi Clemens MD Departed Physician/Provi [place] Office Visit -[facility] January 07, 2025 12:22pm January 07, 2025 2:15pm Harmony Pierce MD Departed Clinical -[facility] January 07, 2025 1:51pm January 07, 2025 1:52pm Harmony Pierce MD Departed Physician/Provi [place] Office Visit -[facility] January 12, 2025 2:23pm January 12, 2025 3:02pm Coleman Luz DO Recent Diagnosis Onset Date Admit Date Greater trochanteric bursitis 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 Unkno wn October 23, 2024 1:54pm History of total right hip arthroplasty Unknown October 23, 2024 1:54pm Persistent atrial fibrillation Unknown S theo 2024 8:11am Low back pain Unknown December 15, 2 025 10:51am Other chronic pain Unknown December 10:51am Other spondylosis with radic ulopathy, lumbar region Unknown December 15, 2024 10:51am Acute bronchitis due to othe r specified organisms Unknown December 26, 2024 9:33am Rib fracture Unknown December 26, 2024 9:33am Laceration of leg excluding thigh, with complication Unknown December 26, 2024 9:33am Cellulitis of leg without foot, left Unknown December 26, 2024 9:33am Low back pain Unknown January 05, 2025 9:45am Other chronic pain Unknown December 9:45am Other spondylosis with radic ulopathy, lumbar region Unknown January 05, 2025 9:45am Greater trochanteric bursitis of right hip Unkno wn January 07, 2025 12:22pm History of total right hip arthroplasty Unknown January 07, 2025 12:22pm Functional Status Observation Response Date Recorded Dressing Patient at Baseline December 11:02am Eating Patient at Baseline December 11:02am Bathing Patient at Baseline December 11:02am Disability Status Patient at Baseline December 12, 2024 11:02am Mental Status Observation Response Date Recorded Cognitive Status Patient at Baseline December 122024 11:02am Cognitive/Mental Status Assessments Assessments Diagnosis Onset Date Resolution Status Admit Date Greater trochanteric bursitis of right hip acute October 23, 2024 1:54pm History of total right hip arthroplasty acute October 23, 2024 1:54pm Persistent atrial fibrillation acute December 09 8:11am Low back pain acute December 152024 10:51am Other chronic pain acute Sept2024 10:51am Other spondylosis with radiculopathy, lumbar region acute Sep tember 2024 10:51am Acute bronchitis due to other specified organisms acute akila 2024 9:33am Rib fracture acute December 262024 9:33am Laceration of leg excluding thigh, with complication noneactive Sept er 2024 9:33am Cellulitis of leg without foot, left noneactive December 26, 2024 9:33am Low back pain acute December 092024 9:45am Other chronic pain acute akila 2024 9:45am Other spondylosis with radiculopathy, lumbar region acute Sep tember 2024 9:45am Greater trochanteric bursitis of right hip acute January 12:22pm History of total right hip arthroplasty acute January 07 12:22pm Plan of Treatment Author Jonathan Samano [facility] Authored December 15, 2024 11:54am Patients primary complaint t leonora is severe lumbar pain radiating into the posterior aspect of his bilateral lower extremities, extending into his feet. He reports numbness and tingling as well. Given previous benefit with an epidural injection, the patient would be a candidate for a caudal epidural steroid injection, which we will proceed with. Risks and benefits of procedure explained to patient; patient verbalizes understanding. Anatomy of spine discussed in detail with patient in regards to patients condition. Should this not provide significant relief, we may consider updating his lumbar MRI in the future. Above note written by Lexus Link MA, Induction Machine Setter. Edited and approved by Dr. Jonathan Samano MD. Author Jonathan [facility] Authored January 05, 2025 10:47am Patients primary complaint t leonora is severe lumbar pain radiating into the posterior aspect of his bilateral lower extremities, extending into his feet. He reports numbness and tingling as well. He has failed multiple conservative treatment options, such as physical therapy and ongoing activity modification, pharmacological treatment and injection therapy, and continues to experience progressing pain. At this point, I will order an updated MRI of his lumbar spine for further evaluation. We advised the patient to call the office after his MRI is scheduled so we can place a referral to Neurosurgery for further evaluation at his request. Anatomy of spine discussed in detail with patient in regards to patients condition. Above note written by Lexus Link MA, Induction Machine Setter. Edited and approved by Dr. Jonathan Smaano MD. Author Coleman [facility] Authored December 26, 2024 10:10am Instructed on splinting w/ c ough/sneezing. Don't advise using chest binder. Instructed to use ice/heat and topical creams. I have instructed this patient to use Robitussin or Mucinex for cough, saline and Flonase NS for congestion and Tylenol for pain and fever. Continue antibiotics until all the medication has been taken. Report to the ER if develop any CP or SOB Begin Doxycycline 100mg bid Traumatic laceration w/ surrounding erythema. Mild bleeding present. Instructed to cleans w/ soap and water and keep clean Instructed to cleanse w/ soap and water. Apply mupirocin ointment bid and keep clean Initiate Doxycycline 100mg bid Future Tests Future scheduled test information is unavailable Pending Tests Test Name Ordered Date Scheduled Date MR lumbar spine wo/w con January 05, 2025 10 :18am Future Visits Future appointment information is unavailable Referrals to Other Providers Reason for Referral Referral Start Date Provider Provider Contact Information Provider Address [facility] Work Phone: [address] [place] [phone] EKG - we will call you with appointment [facility] Work Phone: [address] [place] [phone] Future Procedures Procedure Name Ordered Date Scheduled Date Admit Status Order December 09, 2024 10:36am S eptember 2024 10:36am Discharge Order December 12, 2024 9:31am Rc ellison 2024 9:31am Future Medications Future medication information is unavailable Patient Instructions Instruction Admit Date Know your Meds December 09, 2024 8:11am Low back pain in adults December 15 10:51am Goals Acute Goals Author Authored Date Exhibit optimal tissue perfusion * Exhibits adequate oxygenation and ventilation * Exhibits adequate cardiac output * Regains stable cardiac rhythm * Maintains optimal activity level * Maintains balanced intake and output [facility] December 12, 2024 11:03am Absence of new skin breakdow n [facility] December 12, 2024 11:03am Wound healing [facility] December 12, 2024 11:03am
--- OUTSIDE RECORDS SUMMARY | 2025-01-14 10:14 | XMS_ITS | CCD ---
Author Organization [facility] CliniSyhi Care Team Providers Care Campaign Coordinator Name Role Phone Pcp, No Primary Care Provider UnavailVitaliy Santoyo DO Primary Care Provider Sarai Mendez II Unavailable Jonathan Samano Unavailable Melinda Verduzco Unavailable DO Vitaliy Brower Primary Care Provider MD Sarai Mendez II Attending Provider DO Vitaliy Brower Attending Provider DO Vitlaiy Brower Primary Care Provider DO Vitaliy Brower Attending Provider MD Chio Nichole Attending Provider [phone] Chio Nichole Unavailable DO Vitaliy Brower Primary [...] DR CEE Admitting Unavailable BALL, DR CEE Primary Care Unavailable MISC, DR [...] MD Jonathan Samano Attending Provider Ball, DO Vitaliy Primary Care Provider MD Sarai Georges Attending Provider [phone] LOWELL [place] Emergency Provider Ball, DO Vitaliy Primary Care Provider MD Sarai Mendez II Attending Provider Melinda Verduzco CNP Unavailable Ball DO, Vitaliy E Primary Care Provider Ball, DO Vitaliy Primary Care Provider MD Sarai Mendez II Attending Provider [phone] Ball, DO Vitaliy Primary Care Provider MD Sarai Mendez II Attending Provider [phone] Sukhjinder Montesinos Unavailable Ball, DO Vitaliy Primary Care Provider MD Sarai Mendez II Attending Provider RASHAD Verduzco Attending Provider CHHAYA WHATLEY Referring Unavailable BALL, VITALIY E Primary Care Unavailable BALL, VITALIY E Primary Care Unavailable DAVID DWYER Attending Unavailable THERESA PRAKASH Attending Unavailabl e THERESA PRAKASH Referring Unavailabl e BALL, VITALIY E Primary Care Unavailable SARAI VELASCO Attending Unavailable BALL, VITALIY E Referring Unavailable BALL, VITALIY E Primary Care Unavailable Ball, DO Vitaliy Primary Care Provider MD Sarai Mendez II Attending Provider RASHAD Verduzco Attending Provider PROVIDER, UNKNOWN Referring Unavailable BALL, VITALIY E Primary Care Unavailable Ball DO, Vitaliy E Primary Care Provider MD Antonio Steele Attending Provider MD Antonio Steele Referring Provider Inocente LIPSCOMB Vitaliy E Primary Care Provider Inocente DO Cee Primary Care Provider MD Erin Suresh Emergency Provider MD Elliott Talley Admit Provider MD Elliott Talley Attending Provider MD Sally Alex Attending Provider Inocente DO Vitaliy Jackie Primary Care Provider SANTOS CABRERA Attending Unavailable DO Vitaliy Brower Primary Care Provider Luba MITCHELL.MICHAELMelinda Bella Unavailable DO Vitaliy Brower Primary Care Provider MD Mehrdad Mcmanus Attending Provider [phone] MD Bird Kowalski Attending Provider [phone] DO Vitaliy Brower Primary Care Provider MD Mehrdad Mcmanus Attending Provider [phone] MD Bird Kowalski Attending Provider [phone] Inocente LIPSCOMB Vitaliy Primary Care Provider Mehrdad Mcmanus MD Attending Provider Bird Kowalski MD Attending Provider [phone] Inocente LIPSCOMB Vitaliy Jackie Primary Care Provider Vitaliy Brower DO Primary Care Provider Bird Kowalski MD Attending Provider Inocente LIPSCOMB Vitaliy Jackie Primary Care Provider Vitaliy Brower DO Primary Care Provider Bird Kowalski MD Attending Provider BIRD KOWALSKI Admitting Unavailable BIRD KOWALSKI Attending Unavailable BALL, VITALIY E Primary Care Unavailable BIRD KOWALSKI Admitting Unavailable FILBIRD PRAJAPATI Attending Unavailable BALL, VITALIY E Primary Care Unavailable BIRD KOWALSKI Referring Unavailable BALL, VITALIY E Primary Care Unavailable BIRD KOWALSKI Admitting Unavailable BIRD KOWALSKI Attending Unavailable Cosmo Guzman APRN Emergency Provider Dionisio DOHERTY, Chio Moreno Attending Provider Sarai Mendez MD Attending Provider Winnie Grande DO Emergency Provider Godwin DOHERTY, Lydia Admit Provider Godwin DOHERTY, Lydia Attending Provider Mary Ann Miller RN Other Provider Unavailable Kathy Valle DO Other Provider Yazmin DOHERTY, Lala Other Provider [phone] Juan Luis DOHERTY, Nehemiah Lovett Other Provider Antonio Steele MD Other Provider Dutch Posadas MD Other Provider Geno Corona APRN Other Provider Tami Steele MD Other Provider Lul DOHERTY, Arnaldo Herrera Other Provider Munir Foote MD Other Provider Jose Luis [facility], Nicolle Blanco Other Provider [phone] BIRD KOWALSKI Attending Unavailable ANTONIO STEELE Referring Unavailable INOCENTE, VITALIY E Primary Care Unavailable BIRD KOWALSKI Referring Unavailable BALL, VITALIY E Primary Care Unavailable Luba MITCHELL.MICHAEL, Melinda Blake Unavailable Vitaliy Brower DO Primary Care Provider [phone] Antonio Steele MD Attending Provider HELADIO PINEDA Attending Unavailable INOCENTE, VITALIY E Primary Care Unavailable HELADIO PINEDA Attending Unavailable INOCENTE, VITALIY E Primary Care Unavailable HELADIO PINEDA Referring Unavailable BALL, VITALIY E Primary Care Unavailable HELADIO PINEDA Attending Unavailable BALL, VITALIY E Primary Care Unavailable Ball DO, Vitaliy Primary Care Provider Inocente DO Vitaliy Attending Provider Sarai Mendez MD Attending Provider Marcela Ortiz CMA Attending Provider Unavaila ble Godwin DOHERTY, Lydia Other Provider Ada Woodruff MD Attending Provider Fang Zhu MD Attending Provider Sonu LIPSCOMB, [place] Admit Provider Tomy Cabello MD Attending Provider [phone] Radha Medina MD Emergency Provider Yaakov DO, Yazid Admit Provider Yaakov DO, Yazid Attending Provider Cosmo Guzman APRN Emergency Provider Inocente DO Vitaliy Primary Care Provider Antonio Steele MD Other Provider Vitaliy Brower DO Attending Provider Sarai Mendez MD Attending Provider Antonio Steele MD Admit Provider Antonio Steele MD Attending Provider Jonathan Samano MD Attending Provider TRABOULSSShyann, MOURHAF Attending Unavailable TRABOULSSI, MOURHAF Referring Unavailable BALL, VITALIY E Primary Care Unavailable TRABOULSSI, MOURHAF Referring Unavailable BALL, VITALIY E Primary Care Unavailable TRABOULSSI, MOURHAF Attending Unavailable BALL, VITALIY E Primary Care Unavailable TRABOULSSI, MOURHAF Attending Unavailable TRABOULSSI, MOURHAF Referring Unavailable BALL, VITALIY E Primary Care Unavailable TRABOULSSI, MOURHAF Attending Unavailable TRABOULSSI, MOURHAF Referring Unavailable BALL, VITALIY E Primary Care Unavailable Marcela Ortiz CMA Attending Provider UnavailCasimiro Milligan PA-C Attending Provider [phone] Inocente LIPSCOMB, Vitaliy Primary Care Provider [phone] Inocente LIPSCOMB, Vitaliy Primary Care Provider Inocente LIPSCOMB, Vitaliy Attending Provider [phone] Vitaliy Brower Primary Care Unavailable Bird Kowalski Attending Unavailable Bird Kowalski Admitting Unavailable Inocente Vitaliy Primary Care Unavailable Cosmo Guzman Attending Unavailable Cosmo Guzman Admitting Unavailable [place] IISarai Admitting Unavailabl e Inocente Vitaliy Primary Care Unavailable Andrea MULLINS, Sarai Antunez Attending Unavailabl e Inocente Vitaliy Primary Care Unavailable Bird Kowalski Admitting Unavailable Bird Kowalski Attending Unavailable Inocente Vitlaiy Primary Care Unavailable Andrea II, Sarai Antunez Admitting Unavailabl e [place] II, Sarai Antunez Attending Unavailabl e TraboulAntonio rosado Attending Unavailable Keysha Steelef Admitting [facility] Sarai Mendez II Attending [facility]availabl e [facility] Unavailable Sarai Mendez II Admitting Unavailabl e Zoraidaouleliezeri, Antonio Attending Unavailable Trabdavidi, Mourhaf Admitting Unavailable Inocente Vitaliy Primary Care [facility] Unavailable [place] Ascencio Admitting Unavailabl e Tomy Cabello Attending Unavailable Romychler, Mary Ann Consulting Unavailable Romychler, Mary Ann Consulting Unavailable Kathy Valle Consulting Unavailable Arce, Reeves Consulting Unavailable Nehemiah Mcknight Consulting Unavail able Keysha Steelef Consulting Unavailable Dutch Posadas Consulting Unavailab Geno Nevarez Consulting Unavailable Tami Steele Consulting Unavailable Lul, Arnaldoyahir Herrera Consulting Unavailab Munir Marin Consulting Unavailable Nicolle Amaya Consulting Unavailable Yaakov, Yazid Attending Unavailable Trabdavidi, Mourhaf Consulting Un[facility]available Yaakov, Yazid Admitting Unavailable GodwinNathand Attending Unavailable Mischler, Mary Ann Consulting Unavailable [facility] Unavailable GodwinNathand Admitting Unavailable Mischler, Mary Ann Consulting Unavailable Kathy Valle Consulting Unavailable Arce, Reeves Consulting Unavailable Nehemiah Mcknight Consulting Unavail able Antonio Steele Consulting Unavailable Dutch Posadas Consulting Unavailab Geno Nevarez Consulting Unavailable Tami Steele Consulting Unavailable Arnaldo Mccarty Consulting Unavailab Munir Marin Consulting Unavailable Nicolle Amaya Consulting Unavailable Vitaliy Brower Primary Care Unavailable Chio Nichole Attending Unavailable Chio Nichole Admitting Unavailable Allergies Allergy Classification Reported Allergen(s) Allergy Type Date of Onset Reaction(s) Facility (20 sources) Acetaminophen / oxyCODONE Drug Allergy Unknown [facility] Other (20 sources) atorvastatin Drug Allergy 05-07-19 24 Unknown, Unknown Reaction [facility] (20 sources) predniSONE; Translations: [PREDNISONE] Drug Allergy 01-27-20 23 Other, Headache [facility] (20 sources) Simvastatin Drug Allergy 01-02-20 13 Unknown [facility] Other (1 source) patient allergy list reviewed by nurse or physicia Propensity to adverse reactions 02-18-20 13 Comment:Done [facility] Other (3 sources) Acetaminophen Drug Allergy 05-07-19 24 Unknown Reaction [facility] (3 sources) oxyCODONE Drug Allergy 05-07-19 24 Unknown Reaction [facility] Medications Current Medications Medication Drug Class(es) Dates Sig (Normalized) Sig (Original) 0.5 ML semaglutide 0.5 MG/ML Auto-Injector [Wegovy] (15 sources) Start: 10-03-2022 Start: 10-03-2022 inject 0.5 mL by sub cutaneous injection every week Wegovy 0.25 MG/0.5ML 0.5 mL Subcutaneous weekly for 30 days Sep, Active Acetaminophen (20 sources) Start: 01-29-2024 take 1 tablet by tobin th every six hours as needed acetaminophen (Tylenol) tablet 650 mg Start: 01-31-2023 take 2 tablets by mo uth every [...] take 2 tablets by mouth once daily Allopurinol 100 mg tablet Active 200 MG PO Daily September 30, 2024 12:00am Complies with drug therapy Start: 07-07-2024 take 2 tablets by mouth [...] 1 tablet by tobin th every afternoon. Aspir-81 (20 sources) Aspir-81 Active Aspir-81 81 [...] MG PO Daily September 08, 2024 12:00am Complies with drug therapy Start: 01-30-2024 take 81 mg by mouth [...] daily in the evening Atorvastatin 80 mg Tablet Active 80 MG PO Every evening 30 30 September 29, 2024 12:00am Complies with drug therapy Start: 09-19-2023 End: 09-29-2024 take 1 tablet [...] capsule by mo uth every twelve hours Cefadroxil 500 MG 1 [...] stools docusate sodium 50 mg / sennosides, mcfp 8.6 mg oral tablet (10 sources) Start: [...] Jun, Active dofetilide 0.125 mg oral capsule (9 sources) Antiarrhythmic Start: 12-12-2024 take 1 capsule by mouth every twelve hours Dofetilide 125 mcg Capsule Active 125 MCG PO Every 12 hours 60 December 12, 2024 12:00am Complies with drug therapy ergocalciferol 1.25 mg oral capsule (20 sources) [...] every week as needed Ergocalciferol 1.25 MG (81790 UT) 1 capsule Orally Once a Week for 60 days Nov, Not-Taking/PRN Start: 03-25-2021 take 1 capsule by mo uth every week Vitamin D (Ergocalciferol) 1.25 MG (42827 UT) 1 capsule Orally once weekly for [...] mg tablet Active 0 .ROUTE .COMPLEX 90 Lola 3rd, 2025 8:57pm TAKE 1 TABLET BY MOUTH EVERY DAY Complies with drug therapy Start: 12-23-2023 End: 09-29-2024 take 1 tablet by mouth once daily Escitalopram Oxalate 20 mg tablet Discontinued 0 .ROUTE .COMPLEX 90 June 14, 2024 5:03pm September 29, 2024 4:03am TAKE 1 TABLET BY MOUTH EVERY DAY Start: 06-29-2023 End: 12-10-2024 take 1 tablet by mouth once daily at bedtime Escitalopram Oxalate 20 mg tablet Discontinued 20 MG PO Daily at bedtime December 09, 2024 12:00am December 10, 2024 8:57pm Start: 06-28-2023 End: 06-29-2023 take 1 tablet by mouth once daily Escitalopram Oxalate 10 mg tablet Discontinued 0 .ROUTE .COMPLEX 90 June 28, 2023 3:06pm June 29, 2023 [...] needed for cough for 7 days Active levothyroxine sodium 0.15 mg oral tablet (20 sources) l-Thyroxine Start: 03-20-2024 take 1 tablet by mouth once daily Levothyroxine 150 mcg tablet Active 0 .ROUTE .COMPLEX 90 March 20, 2024 10:44am TAKE 1 TABLET BY MOUTH EVERY DAY Complies with drug therapy Start: 06-20-2021 End: 03-20-2024 take 1 tablet [...] 400 mg oral tablet (20 sources) Start: 05-02-2023 take 1 tablet by mouth once daily Magnesium Oxide 400 mg (241.3 mg magnesium) Tablet Active 400 MG PO Daily September 29, 2024 12:00am Complies with drug therapy Comment on above: Take 400 mg by mouth . 24 hr metoprolol succinate 50 mg extended release oral tablet (20 sources) beta-Adrenergic Nimo Start: 03-20-2024 End: 01-03-2025 take 1 tablet by mouth once daily Metoprolol Succinate 50 mg tablet extended release 24 hr Active 0 .ROUTE .COMPLEX January 03, 2025 8:36am TAKE 1 TABLET BY MOUTH EVERY DAY Complies with drug therapy Start: 03-20-2024 take 1 tablet by tobin [...] Tartr ate 25 MG (Prior Auth: Rx Ref#:[id number]) Oral for Active Comment on above: Take [...] Jun, Active nitroglycerin 0.4 mg sublingual tablet (11 sources) Nitrate Vasodilator Start: 09-29-2024 Nitroglycerin 0.4 mg Tablet, Sublingual Active 0.4 MG SUBLINGUAL Q5M as needed for Chest Pain September 29, 2024 12:00am Complies with drug therapy ondansetron 8 mg oral tablet (12 sources) [...] tablet (20 sources) Proton Pump Inhibitor Start: 01-03-2025 take 1 tablet by mouth once daily Pantoprazole 40 mg tablet,delayed release (DR/EC) Active 0 .ROUTE .COMPLEX January 03, 2025 8:36am TAKE 1 TABLET BY MOUTH EVERY DAY Complies with drug therapy Start: 07-01-2024 End: 01-03-2025 take 1 tablet by mouth once daily Pantoprazole 40 mg tablet,delayed release (DR/EC) Discontinued 40 MG PO Daily July 01, 2024 12:00am January 03, 2025 8:37am Start: 01-30-2024 pantoprazole ( ProtoNix) EC tablet [...] mL of Normal Saline. polyethylene glycol 3350 85907 mg powder for oral solution (10 sources) [...] WITH FOOD spironolactone 25 mg oral tablet (11 sources) Aldosterone Antagonist Start: 10-02-19 Spironolactone 25 mg Tablet Active 12.5 MG PO Daily October 01, 2024 12:00am Complies with drug therapy traMADol hydrochloride 50 mg oral tablet (11 sources) Opioid Agonist Start: 01-29-20 take 1 tablet by mouth every six [...] mg tablet Active 0 .ROUTE .COMPLEX 90 October 02, 2024 7:45am TAKE 1 TABLET BY MOUTH EVERY DAY Complies with drug therapy Start: 06-20-2021 End: 12-24-2023 take 1 tablet [...] 09May 22, 2022 January 26, 2023 11:02am [id number] 200 actuat albuterol 0.09 mg/actuat metered dose [...] capsule Discontinued 2000 MG PO As Directed 4 Joselo 30th, 2024 1:00am August 11, 2024 2:39pm Start: [...] 01, 2023 10:30am November 19, 2023 2:23pm apixaban 5 mg oral tablet (20 sources) Factor Xa Inhibitor Start: 11-19-2024 End: 11-19-2025 take 1 tablet by mouth twice daily Apixaban (Eliquis) 5 mg tablet Discontinued 5 MG PO Twice daily December 09, 2024 12:00am January 07, 2025 1:32pm Start: 08-13-2024 End: 11-19-2024 take 1 tablet by mouth every twelve hours Eliquis 5 mg tablet Take 1 tablet (5 mg) by mouth every 12 hours. 08/13/2024 11/19/2024 Discontinued (Discontinued by another clinician) Start: 08-13-2024 End: 09-29-2024 take 1 tablet by mouth twice daily Apixaban (Eliquis) 5 mg Tablet Discontinued 5 MG PO Twice daily 60 August 13, 2024 12:00am September 29, 2024 [...] oral tablet (1 source) beta-Adrenergic Nimo Start: 10-26-19 End: 01-06-20 take 1 tablet by mouth once daily atenolol 25 mg tablet Take 1 tablet by mouth once daily. 0 10/25/2012 01/05/2023 Discontinued (Course of therapy completed) Comment on above: Take 1 tablet by tobin th once daily. benzonatate 200 mg oral capsule (20 sources) Non-narcotic Antitussive Start: 05-14-19 End: 08-02-19 take 1 capsule by mouth three times daily Benzonatate 200 mg capsule Discontinued 200 MG PO Three times daily 05 02May 14, 2024 1:00am August 01, 2024 11:12am ceFAZolin 2000 mg injection (1 source) Cephalosporin Antibacterial Start: 01-29-20 End: 01-29-20 2 g, intravenous, at 100 mL/hr, Administer [...] (20 sources) P2Y12 Platelet Inhibitor Start: 08-14-19 End: 11-20-19 take 1 tablet by mouth once daily Clopidogrel 75 mg Tablet Discontinued 75 MG PO Daily August 13, 2024 12:00am September 29, 2024 [...] Start: 02-07-2010 take 1 tablet by tobin th once daily colchicine 0.6 mg ORAL tablet Indications: Pseudogout , Knee pain , Knee swelling Take one(1) tablet daily. 60 Tab 0 02/07/2010 Active Comment on above: Take one(1) tablet d aily. Take 1tab by mouth u p to twice a day as tolerated. May cause diarrhea. dapagliflozin 10 mg oral tablet (11 sources) Sodium-Glucose Cotransporter 2 Inhibitor Start: 10-02-19 [...] Jun, Active take 1 tablet by tobin th every twenty-four hours diazePAM 5 MG 1 tablet as needed Orally Once a day Active diclofenac sodium 0.01 mg/mg topical gel (15 sources) Nonsteroidal Anti-inflammatory Drug Start: 08-06-2024 End: [...] oral capsule (20 sources) Tetracycline-class Drug Start: 12-26-2024 End: 01-07-2025 take 1 capsule by mouth twice daily Doxycycline Hyclate 100 mg capsule Discontinued 100 MG PO Twice daily 26 01December 26, 2024 12:00am January 07, 2025 1:32pm Start: 09-12-2024 End: 09-29-2024 take 1 capsule [...] 11:12am Start: 03-29-2023 take 1 capsule by [facility] every twelve hours Doxycycline Hyclate 100 MG 1 capsule Orally Twice a day for 7 days Mar, Active Start: 03-07-2023 take 1 tablet by [facility] every twelve hours Doxycycline Hyclate 100 MG 1 tablet Orally Twice a day for 14 days Feb, Active Start: 10-25-2022 take 1 capsule by [facility] twice daily Doxycycline Hyclate 100 MG 1 capsule Orally twice daily for 10 days Jan, Active Start: 05-29-2022 take 1 capsule by [facility] twice daily Doxycycline Hyclate 100 [...] 20, 2021 12:00am June 28, 2023 4:16pm 24 hr isosorbide mononitrate 30 mg extended release oral tablet (11 sources) Nitrate Vasodilator Start: 5 End: 5 take 1 tablet by mouth once daily in the morning, then take 1 tablet by mouth every twenty-four hours Isosorbide Mononitrate 30 mg Tablet Extended Release 24 Hr Discontinued 30 MG PO Every morning September 29, 2024 12:00am January 07, 2025 1:33pm lisinopril 10 mg oral tablet (20 sources) [...] tablet by tobin th once daily. methylPREDNISolone 8 mg oral tablet (20 sources) Corticosteroid Start: 2024 End: 2024 take 4 mg by mouth once daily Methylprednisolone (Medrol) 8 mg tablet Discontinued 4 MG PO Daily October 08, 2024 12:00am January 12, 2025 2:27pm Start: 10-08-2024 take 1 tablet by tobin [...] Start: 07-05-2023 take 2 tablets by mo [facility] once daily methylPREDNISolone (Medrol) 4 mg tablet [...] WITH FOOD DAILY TAKE 1 TABLET BY TBOIN TH WITH FOOD DAILY FOR 14 DAYS take 1 tablet by tobin th every day with food Alternate 4mg and 2m g every other day ALTERNATE 1 TABLET A ND 1/2 TABLET BY MOUTH EVERY OTHER DAY 4 TABLET BY MOUTH EV RANDOLPH OTHER DAY mupirocin 0.02 mg/mg topical ointment (20 sources) RNA Synthetase Inhibitor Antibacterial Start: 12-26-2024 End: 01-07-2025 Mupirocin 2 % ointment Discontinued 1 APPLIC TOPICAL Twice daily 28 01December 26, 2024 12:00am January 07, 2025 1:33pm Start: 06-28-2023 End: 08-02-2023 Mupirocin 2 % ointment Disco ntinued 1 APPLIC TOPICAL Twice daily June 28, [...] 11-19-2023 Episodic Acute and unspecified renal failure (19 sources) Acute renal failure syndrome; Translations: [Acute kidney failure, unspecified] Onset: 5 09-30-2024 Episodic Acute bronchitis (20 sources) Acute bronchitis due to other specified organisms; Translations: [Acute bronchitis] Onset: 5 Episodic Acute posthemorrhagic anemia (1 source) Acute posthemorrhagic anemia Episodic Anxiety disorders (20 sources) Generalized anxiety disorder; Translations: [Generalized anxiety disorder] 06-04-2023 Chronic Aortic; peripheral; and visceral artery aneurysms (14 sources) Aortic root dilatation; Translations: [Thoracic aortic ectasia] Onset: 4 02-14-2024 Chronic Blindness and vision defects (1 source) Visual impairment; Translations: [Unspecified visual loss] Chronic Blindness and vision defects (19 sources) Blurring of visual image; Translations: [Other visual disturbances] Onset: 5 09-30-2024 Episodic Cardiac dysrhythmias (20 sources) Persistent atrial fibrillation; Translations: [Other persistent atrial fibrillation] Onset: 4 Resolved: 4 06-28-2023 Chronic Comment on above: d/t medication from covid d/t medication from COVID,Watchman 01/2024 Watchman 01/2024 s/p LAAO procedure - 01/2024,Echo: LVEF 45%, CHARISSA, normal RV size/function - 08/2024,DCCV: 09/2024 s/p LAAO procedure - 01/2024,Echo: LVEF 45%, CHARISSA, normal RV size/function - 08/2024,DCCV: 09/2024, 12/2024 Chronic ulcer of skin (1 source) Non-pressure [...] disease, bilateral] Chronic Congestive heart failure; nonhypertensive (20 sources) Heart failure; Translations: [Heart failure, unspecified] Resolved: 2 10-20-2021 Chronic Coronary atherosclerosis and other heart disease (20 sources) Coronary arteriosclerosis; Translations: [Atherosclerotic heart disease of [place] coronary artery without angina pectoris] Onset: 4 10-29-2013 Chronic Comment on above: CABG x - 2014,PCI/ stent (prior to 2014) PCI/stent (prior to 2014),CABG x - 2014,Stress NM: LVEF 33%, inferolateral fixed defect - 08/2024,LHC: LVEF 35%, patent grafts - 09/2024PCI/stent (prior to 2014) Coronary atherosclerosis and other [...] of gastrointestinal tract; Translations: [Diverticulitis of intestine] 08-30-2023 Chronic E Codes: Adverse effects of [...] other specified B group vitamins] 01-05-2023 Episodic Open wounds of extremities (6 sources) Puncture wound without foreign body of left index finger without damage to nail, subsequent encounter; Translations: [Laceration of lower limb] Resolved: 1 12-26-2024 Episodic Osteoarthritis (20 sources) Osteoarthritis; Translations: [Unspecified [...] replacement] Chronic Other aftercare (3 sources) 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; Translations: [[employer] 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 CURRENT DRUG THERAPY] Onset: 3 Episodic Other aftercare (2 sources) Long-term current use of drug therapy; Translations: [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] Episodic Other aftercare (20 sources) Long-term current use of systemic steroid; Translations: [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 (current) use of 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] Onset: 3 01-05-2023 Episodic Other aftercare (8 sources) Long-term current use of anticoagulant; Translations: [termite treater (current) use of 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] 07-27-2023 Episodic Other aftercare (3 sources) H/O: high risk medication; Translations: [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] 06-30-2024 Episodic Other circulatory [...] source) Orthostatic hypotension Episodic Other circulatory disease (18 sources) Low blood pressure; Translations: [Hypotension, unspecified] 09-30-2024 Episodic Other connective tissue disease (20 sources) [...] knee joint Chronic Other connective tissue disease (20 sources) History of revision of left total hip arthroplasty; Translations: [Presence of left artificial hip joint] 08-04-2024 Chronic Other connective tissue disease (20 sources) History of total replacement of right [...] [Other musculoskeletal symptoms referable to limbs] Onset: 06-30-2024 Episodic Other connective tissue disease (7 sources) Hand pain; Translations: [Pain in left hand] 08-04-2024 Episodic Other connective tissue disease (4 sources) Pain of left hand; Translations: [Pain in left hand] 08-04-2024 Episodic Other connective tissue disease (20 sources) Trochanteric bursitis; Translations: [Trochanteric bursitis, right hip] 10-23-2024 Episodic Other disorders of stomach and duodenum (1 source) Disorder of function of stomach; Translations: [Dyspepsia and other specified disorders of function of stomach] Episodic Other fractures (10 sources) Fracture of rib; Translations: [Fracture of one rib, unspecified side, initial encounter for closed fracture] 12-25-2024 Episodic Other gastrointestinal disorders (20 sources) Irritable bowel syndrome; Translations: [Irritable bowel syndrome without diarrhea] Chronic Other gastrointestinal disorders (2 sources) Irritable bowel syndrome with diarrhea; Translations: [Irritable bowel syndrome with diarrhea] Onset: Chronic Other gastrointestinal disorders (20 sources) Swallowing [...] organs] Onset: 3 Chronic Other hematologic conditions (20 sources) Macrocytosis - no anemia; Translations: [Other [...] injuries and conditions due to external causes (19 sources) Contusion; Translations: [Other injury of unspecified [...] origin; 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 Other nervous system disorders (20 sources) [...] unspecified joint Episodic Other non-traumatic joint disorders (20 sources) Pain in right knee; Translations: [Pain [...] nutritional; endocrine; and metabolic disorders (2 sources) Obesity, unspecified; Translations: [Obesity, unspecified] Onset: 5 Chronic Other nutritional; endocrine; and [...] Translations: [Insomnia, unspecified] Episodic Residual codes; unclassified (14 sources) Never smoked tobacco; Translations: [Other specified health status] Onset: 4 10-18-2023 Episodic Residual codes; unclassified (2 sources) Other specified health status; Translations: [Other specified health status] Onset: 4 Episodic Rheumatoid arthritis and related disease (20 sources) Inflammatory polyarthropathy; Translations: [Inflammatory polyarthropathy] Chronic Septicemia (except in labor) (2 sources) Sepsis; Translations: [Sepsis, unspecified organism] 08-30-2023 Episodic Skin and subcutaneous tissue infections (9 sources) Cellulitis of lower limb; Translations: [Cellulitis [...] left shoulder, initial encounter] 05-22-2022 Episodic Syncope (19 sources) Near syncope; Translations: [Syncope and collapse] [...] use of other medications] Onset: 9 Unclassified (9 sources) Other persistent atrial fibrillation; Translations: [Other persistent atrial fibrillation] Onset: 4 Unclassified (1 source) Hospital Follow-up Onset: 4 Unclassified (1 source) Chronic atrial fibrillation, unspecified; Translations: [Chronic atrial fibrillation, unspecified] Onset: 4 Unclassified (20 sources) A [facility] screening has identified you as FRAIL [...] Four Ways to Beat the Frailty Risk [email or web address]/stay-stro vj-yvak-jjjf-to-beat-the -fra ilty-risk 08-12-2024 Unclassified (1 source) Chronic bilateral low back pain without sciatica; Translations: [Chronic bilateral low back pain without sciatica] Onset: Unclassified (20 sources) Post hospital appointment. Please call to reschedule if needed. Unclassified (7 sources) You have been scheduled for a follow up appointment for the following date and time, please call to reschedule if needed. Unclassified (14 sources) EKG - we will call you [...] Translations: [Malaise and fatigue] Onset: 02-02-2016 Episodic Other aftercare (2 sources) Encounter for follow-up examination after completed treatment for conditions other than malignant neoplasm; Translations: [Encounter for follow-up examination after completed treatment for conditions other than malignant neoplasm] Onset: 01-28-2024 Episodic Other aftercare (1 source) 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 (current) use of 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; Translations: [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] Onset: 01-05-2023 Episodic Other circulatory disease (1 source) Hypotension, unspecified; Translations: [Hypotension, unspecified] Onset: 09-30-2024 Episodic Other connective tissue disease (3 sources) [...] of both knees] Onset: 03-05-2023 Episodic Unclassified (8 sources) Onset: 12-19-2023 Resolved: 12-22-2024 12-19-2023 Viral infection (1 source) COVID-19 Results Test Name Value Interpretation Reference Range Facility X-ray reportOrdered By: Leo Ferrell on 01-07-2025 Study report [facility] [address] [place] [address] XRay Report Signed Patient: Esme Steven MR#: [id number] : 1960 Acct:[id number] Age/Sex: 64 / M ADM Date: 5 [place] [facility] [place]: Type: REG CLI Attending Dr: Sarai Mendez II, MD Copies to: Sarai Mendez MD~ Ordering Provider: Sarai Mendez MD Date of Service: 01/07/25 XR/XR hip RT min 2V(w/wo pelvis)*: Z96.641 - ([id number]) XR/XR knee RT 3V - NOT FOR [...] Ferrell M.D. 01/07/2025 4:29 PM Dictation Location: [place] [address] Transcribed By: [facility] 01/07/251628 Dictated By: Matt Ferrell DO 01/07/251625 Signed By: 01/07/25 1629 [facility] XR hip RT min 2V(w/wo pelvis )*on 01-07-2025 XR hip RT min 2V(w/wo pelvis)* [facility] [address] [place] [address] XRay Report Signed Patient: Esme Steven MR#: [id number] : 1960 Acct:[id number] Age/Sex: 64 / M ADM Date: 01/07/25 [place]: [facility] Room: Type: REG CLI Attending Dr: Sarai Mendez II, MD Copies to: Sarai Mendez MD Ordering Provider: Sarai Mendez MD Date of Service: 01/07/25 XR/XR hip RT min 2V(w/wo pelvis)*: Z96.641 - ([id number]) XR/XR knee RT 3V - NOT FOR [...] Ferrell M.D. 01/07/2025 4:29 PM Dictation Location: [employer] Transcribed By: [facility] 01/07/25 162 Dictated By: Matt Ferrell DO 01/07/25 1626 Signed By: 01/07/25 162 Normal [facility] ECG 12 [place] 12-22-2024 Normal sinus rhythm with nonspecific ST-T changes with QTc interval of 448 ms [facility] Work Phone: Activated partial thrombopla stin time (aPTT) in platelet poor plasma by coagulation aOrdered By: Casimiro Landaverde on 2024 aPTT Coag (PPP) [Time] 24.8 s 22.3-36.2 [facility] Basophils Auto (Bld) [#/Vol] Ordered By: Casimiro Landaverde on 2024 Basophils (Bld) [#/Vol] 0.0 10 3/uL 0.0-0.1 [facility] Basophils/100 WBC Auto (Bld) Ordered By: Casimiro Landaverde on 2024 Basophils/100 WBC (Bld) 0.3 % 0.2-2.0 [facility] Eosinophils/100 WBC Auto (Bl d)Ordered By: Casimiro Landaverde on 2024 Eosinophils/100 WBC (Bld) 0.1 % Low 0.9-7.0 [facility] Erythrocyte distribution wid th Auto (RBC) [Ratio]Ordered By: Casimiro Landaverde on 2024 Erythrocyte distribution width (RBC) [Ratio] 13.7 % 11.0-15.0 [facility] Globulin Calc (S) [Mass/Vol] Ordered By: Casimiro Landaverde on 2024 Globulin (S) [Mass/Vol] 3.4 g/dL [facility] Glomerular filtration rate ( GFR) estimation in non- AmericanOrdered By: Casimiro Landaverde on 2024 GFR/1.73 sq M.predicted among non-blacks MDRD (S/P/Bld) [Vol rate/Area] mL/min/{1.73_m2} >=60 mL/min/1.7 3m 2 [facility] Hematocrit Auto (Bld) [Volum e fraction]Ordered By: Casimiro Landaverde on 2024 Hematocrit (Bld) [Volume fraction] 43.4 % 42.0-54.0 [facility] Hemoglobin [Mass/volume] in BloodOrdered By: Casimiro Landaverde on 2024 Hemoglobin (Bld) [Mass/Vol] 15.2 g/dL 14.0-18.0 [facility] INR in Platelet poor plasma by Coagulation assayOrdered By: Casimiro Landaverde on 2024 INR Coag (PPP) [Relative time] 1.06 {INR} [facility] Comment on above: DESIRED INR:2.0-3.0 CONDITIONS NOT LISTED BELOW2.5-3.5 FOR PROSTHETIC HEART VALVE REPLACEMENT2.5-3.5 RECURRENT THROMBOSIS Laboratory - Chemistry and C hemistry - challengeOrdered By: Casimiro Landaverde on 2024 Bilirubin Ql (U) Negative NEGATIVE [facility] Glucose (U) [Mass/Vol] mg/dL Abnormal NEGATIVE [facility] Ketones Ql (U) Negative NEGATIVE [facility] pH (U) 7.0 [pH] 5.0-9.0 [facility] Specific gravity (U) [Rel density] 1.010 1.005-1.02 5 [facility] Urobilinogen Qn (U) 0.2 {Abhijit'U}/dL 0.2-1.0 [facility] Albumin [Mass/Vol] 3.7 g/dL 3.4-5.0 [facility] ALP [Catalytic activity/Vol] 88 U/L 46-116 [facility] ALT [Catalytic activity/Vol] 58 U/L 16-63 [facility] AST [Catalytic activity/Vol] 20 U/L 15-37 [facility] Bilirubin [Mass/Vol] 1.0 mg/dL 0.2-1.0 [facility] Calcium [Mass/Vol] 9.0 mg/dL 8.5-10.1 [facility] Chloride [Moles/Vol] 100 mmol/L 98-107 [facility] CO2 [Moles/Vol] 25.9 mmol/L 21.0-32.0 [facility] Creatinine [Mass/Vol] 0.88 mg/dL 0.70-1.30 [facility] GFR/1.73 sq M.predicted MDRD (S/P/Bld) [Vol rate/Area] mL/min/{1.73_m2} >=60 mL/min/1.7 3m 2 [facility] Glucose [Mass/Vol] 322 mg/dL High 74-106 [facility] Potassium [Moles/Vol] 4.2 mmol/L 3.5-5.1 [facility] Protein [Mass/Vol] 7.1 g/dL 6.4-8.2 [facility] Sodium [Moles/Vol] 136 mmol/L 136-145 [facility] Urea nitrogen [Mass/Vol] 17.0 mg/dL 7.0-18.0 [facility] Urea nitrogen/Creatinine [Mass ratio] 19.3 mg/mg [facility] Laboratory - Hematology and Cell countsOrdered By: Casimiro Landaverde on 2024 Immature granulocytes/100 WBC (Bld) 1.9 % High 0.0-0.5 [facility] Laboratory - Specimen inform ationOrdered By: Casimiro Landaverde on 2024 Appearance (U) CLEAR CLEAR [facility] Color (U) LT. YELLOW YELLOW [facility] - UrinalysisOrder ed By: Casimiro Landaverde on 2024 Leukocyte esterase Test strip Ql (U) Negative NEGATIVE [facility] Mucus Ql (Urine sed) NONE SEEN NONE SEEN [facility] Nitrite Ql (U) Negative NEGATIVE [facility] Protein Ql (U) Negative NEG/TRACE [facility] Leukocytes [#/volume] correc collins for nucleated erythrocytes in Blood by Automated counOrdered By: Casimiro Landaverde on 2024 WBC corrected for nucl RBC Auto (Bld) [#/Vol] 11.8 10 3/uL High 4.0-11.0 [facility] Lymphocytes Auto (Bld) [#/Vo l]Ordered By: Casimiro Landaverde on 2024 Lymphocytes (Bld) [#/Vol] 1.2 10 3/uL 1.2-3.8 [facility] Lymphocytes/100 WBC Auto (Bl d)Ordered By: Casimiro Landaverde on 2024 Lymphocytes/100 WBC (Bld) 9.8 % Low 20.5-60.0 [facility] MCH Auto (RBC) [Entitic mass ]Ordered By: Casimiro Landaverde on 2024 MCH (RBC) [Entitic mass] 35.1 pg High 25.9-34.0 [facility] MCHC Auto (RBC) [Mass/Vol]Or dered By: Casimiro Landaverde on 2024 MCHC (RBC) [Mass/Vol] 35.0 g/dL 29.9-35.2 [facility] MCV Auto (RBC) [Entitic vol] Ordered By: Casimiro Landaverde on 2024 MCV (RBC) [Entitic vol] 100.2 fL High 80.0-94.0 [facility] Monocytes Auto (Bld) [#/Vol] Ordered By: Casimiro Landaverde on 2024 Monocytes (Bld) [#/Vol] 0.8 10 3/uL 0.3-0.8 [facility] Monocytes/100 WBC Auto (Bld) Ordered By: Casimiro Landaverde on 2024 Monocytes/100 WBC (Bld) 6.7 % 1.7-12.0 [facility] Neutrophils Auto (Bld) [#/Vo l]Ordered By: Casimiro Landaverde on 2024 Neutrophils (Bld) [#/Vol] 9.6 10 3/uL High 1.4-6.5 [facility] Neutrophils/100 WBC Auto (Bl d)Ordered By: Casimiro Landaverde on 2024 Neutrophils/100 WBC (Bld) 81.2 % High 43.0-75.0 [facility] No Panel InformationOrdered By: Casimiro Landaverde on 2024 Urine Bacteria NONE SEEN #/HPF NONE SEEN [facility] Urine Culture Reflexed NO [facility] Urine Occult Blood Negative NEGATIVE [facility] Urine Other Casts NONE SEEN #/LPF NONE SEEN [facility] Urine Other Crystals None Seen #/HPF None Seen [facility] Urine RBC NONE SEEN #/HPF 0-2 [facility] Urine Squamous Epithelial Cells RARE #/LPF NONE/RARE [facility] Urine WBC NONE SEEN #/HPF NONE SEEN [facility] Eosinophils # (Auto) 0.0 10 3/uL 0.0-0.7 [facility] Immature Granulocyte # (Auto) 0.22 10 3/uL High 0.00-0.03 [facility] Platelet mean volume Auto (B ld) [Entitic vol]Ordered By: Casimiro Landaverde on 2024 Platelet mean volume (Bld) [Entitic vol] 10.4 fL 9.5-13.5 [facility] Platelets Auto (Bld) [#/Vol] Ordered By: Casimiro Landaverde on 2024 Platelets (Bld) [#/Vol] 167 10 3/uL 150-450 [facility] Prothrombin time (PT)Ordered By: Casimiro Lanadverde on 2024 PT Coag (PPP) [Time] 11.2 s 9.0-11.6 [facility] RBC Auto (Bld) [#/Vol]Ordere d By: Casimiro Landaverde on 2024 RBC (Bld) [#/Vol] 4.33 10 6/uL Low 4.70-6.10 [facility] Serum or plasma albumin/glob ulin mass ratioOrdered By: Casimiro Landaverde on 2024 Albumin/Globulin [Mass ratio] 1.1 {ratio} [facility] Serum or plasma anion gap de terminationOrdered By: Casimiro Landaverde on 2024 Anion gap [Moles/Vol] 14.3 mmol/L [facility] ECG 12 lead ECGon 12-12-2024 ECG 12 lead ECG [facility] [address] [place] [id number] Electrocardiograph Report Signed Patient: Esme Steven MR#: [id number] : 1960 Acct:[id number] Age/Sex: 63 / M ADM Date: 12/09/24 Loc: Room: [address] [place] [address] Type: DIS IN Attending Dr: Antonio Steele [...] in Lateral leads Confirmed by Will Koch ([id number]) on 12/12/2024 5:41:54 PM Referred By: Electronically Signed By: Will Koch Transcribed By: MUS Signed By Will Koch MD 12/12/24 0631 Normal [facility] INR in Platelet poor plasma by Coagulation assayOrdered By: Antonio Steele on 12-12-2024 INR Coag (PPP) [Relative time] 1.3 {INR} Normal [facility] Comment on above: INR Therapeutic Rang [...] heart valves: 3 - 4.5 PERFORMED BY: [facility] [address] [place] [id number] PATHOLOGIST STAMP COLLECTOR RYAN ALMARAZ M.D. Performed By: #### P T ####[place] [address] [place] [address] [facility] Prothrombin time (PT)Ordered By: Antonio Steele on 12-12-2024 PT Coag (PPP) [Time] 14.6 s High 9.0-12.9 [facility] Comment on above: A hematocrit value g reater than 55% may lead to inaccurate results in coagulation testing. Patients having hematocrit values >55% require a special collection tube for coagulation studies. Please contact the laboratory at [phone] for redraw instructions. Result Comment: A he matocrit value greater than 55% may lead to inaccurate results in coagulation testing. Patients having hematocrit values >55% require a special collection tube for coagulation studies. Please contact the laboratory at [phone] for redraw instructions. Performed By: #### P T ####[place] [address] [place] [id number] [facility] Carbon dioxide, total [Moles /volume] in Serum or PlasmaOrdered By: Antonio Steele on 12-11-2024 CO2 [Moles/Vol] 29.5 mmol/L Normal 21.0-31.0 [facility] Comment on above: Performed By: #### L YTES ####[place] [id number] [facility] Chloride [Moles/volume] in S ursula or PlasmaOrdered By: Antonio Steele on 12-11-2024 Chloride [Moles/Vol] 102 mmol/L Normal 98-107 [facility] Comment on above: Performed By: #### L YTES ####[place] [address] [place] [address] [facility] ECG 12 lead ECGon 12-11-2024 ECG 12 [place] [address] Electrocardiograph Report Signed Patient: Esme Steven MR#: [id number] : 1960 Acct:[id number] Age/Sex: 63 / M ADM Date: 12/09/24 Loc: Room: [address] [place] [address] Type: DIS IN Attending Dr: Antonio Steele [...] in Inferior leads Confirmed by Will Koch ([id number]) on 12/12/2024 5:41:52 PM Referred By: Electronically Signed By: Will Koch Transcribed By: MUS Signed By Will Koch MD 12/12/24 1741 Normal [facility] ECG 12 lead ECG [place] [id number] Electrocardiograph Report Signed Patient: Esme Steven MR#: [id number] : 1960 Acct:[id number] Age/Sex: 63 / M ADM Date: 12/09/24 Loc: Room: [address] [place] [address] Type: DIS IN Attending Dr: Antonio Steele MD Ordering Provider: Antonio Steele MD Date of Service: 12/11/2408/02/935 ECG/ECG 12 lead ECG: prn ekg Copies to: Test Reason : Blood Pressure : 154/93 mmHG Vent. Rate : 87 BPM Atrial Rate : 75 BPM P-R Int : 182 ms QRS Dur : 104 ms QT Int : 392 ms P-R-T Axes : 90 25 10 degrees QTcB Int : 471 ms Sinus rhythm with marked sinus arrhythmia Nonspecific intraventricular conduction delay Nonspecific T wave abnormality Prolonged QT Abnormal ECG Confirmed by Ada Woodruff ([id number]) on 12/16/2024 2:47:12 PM Referred By: Electronically Signed By: Ada Woodruff Transcribed By: MUS Signed By Ada Woodruff MD 5 1447 Normal [facility] ECG 12 lead ECG [facility] [address] [place] [address] [place] [address] Electrocardiograph Report Signed Patient: Esme Steven MR#: [id number] : 1960 Acct:[id number] Age/Sex: 63 / M ADM Date: 12/09/24 Loc: Room: [address] [place] [address] Type: ADM IN Attending Dr: Antonio Steele [...] intraventricular conduction delay Confirmed by Will Koch ([id number]) on 12/11/2024 9:11:18 PM Referred By: Electronically Signed By: Will Koch Transcribed By: MUS Signed By Will Koch MD 12/11/242110 Normal [facility] Potassium [Moles/volume] in Serum or PlasmaOrdered By: Antonio Steele on 12-11-2024 Potassium [Moles/Vol] 4.2 mmol/L Normal 3.5-5.1 [facility] Comment on above: Performed By: #### L [facility] ####[facility] [id number] Prothrombin Time INRon 12-11 INR Coag (PPP) [Relative time] 1.3 {INR} Normal [facility] Comment on above: [...] heart valves: 3 - 4.5 PERFORMED BY: [place] [address] PATHOLOGIST STAMP COLLECTOR RYAN ALMARAZ M.D. Performed By: #### B MP, PT #### [place] [id number] [facility] PT Coag (PPP) [Time] 14.4 s High 9.0-12.9 [facility] Comment on above: Result Comment: A he matocrit value greater than 55% may lead to inaccurate results in coagulation testing. Patients having hematocrit values >55% require a special collection tube for coagulation studies. Please contact the laboratory at [phone] for redraw instructions. Performed By: #### B MP, PT #### [place] [id number] [facility] Serum or plasma anion gap de terminationOrdered By: Antonio Steele on 12-11-2024 Anion gap [Moles/Vol] 8.7 mmol/L Normal 6.0-15.0 [facility] Comment on above: Result Comment: PERF ORMED BY: [place] [id number] PATHOLOGIST STAMP COLLECTOR RYAN ALMARAZ M.D. Performed By: #### L YTES ####[place] [id number] [facility] Sodium [Moles/volume] in Ser um or PlasmaOrdered By: Antonio Steele on 12-11-2024 Sodium [Moles/Vol] 136 mmol/L Normal 136-145 [facility] Comment on above: Performed By: #### L YTES ####[facility] [id number] [place] [id number] [facility] ECG 12 lead ECGon 12-10-2024 ECG 12 lead ECG [facility] [place] [address] Electrocardiograph Report Signed Patient: Esme Steven MR#: [id number] : 1960 Acct:[id number] Age/Sex: 63 / M ADM Date: 12/09/24 Loc: Room: [address] [place] [address] Type: ADM IN Attending Dr: Antonio Steele [...] intraventricular conduction delay Confirmed by Will Koch ([id number]) on 12/11/2024 9:10:59 PM Referred By: Electronically Signed By: Will Koch Transcribed By: MUS Signed By Will Koch MD 12/11/242110 Normal [facility] ECG 12 lead ECG [facility] [place] [address] Electrocardiograph Report Signed Patient: Esme Steven MR#: [id number] : 1960 Acct:[id number] Age/Sex: 63 / M ADM Date: 12/09/24 Loc: Room: [address] [place] [address] Type: ADM IN Attending Dr: Antonio Steele [...] change was found Confirmed by Will Koch ([id number]) on 12/11/2024 9:10:42 PM Referred By: Electronically Signed By: Will Koch Transcribed By: MUS Signed By Will Koch MD 12/11/24 2110 Normal [facility] Prothrombin Time INRon 12-10 INR Coag (PPP) [Relative time] 1.2 {INR} Normal [facility] Comment on above: Result Comment: INR Therapeutic [...] heart valves: 3 - 4.5 PERFORMED BY: [place] [address] PATHOLOGIST STAMP COLLECTOR RYAN ALMARAZ M.D. Performed By: #### B MP, PT #### [address] PT Coag (PPP) [Time] 13.7 s High 9.0-12.9 [facility] Comment on above: Result Comment: A he matocrit value greater than 55% may lead to inaccurate results in coagulation testing. Patients having hematocrit values >55% require a special collection tube for coagulation studies. Please contact the laboratory at [phone] for redraw instructions. Performed By: #### B MP, PT #### [address] Basic Metabolic Panelon Anion gap [Moles/Vol] 8.0 mmol/L Normal 6.0-15.0 [facility] Comment on above: Performed By: #### B MP, PT #### [address] Chloride [Moles/Vol] 105 mmol/L Normal 98-107 [facility] Comment on above: Performed By: #### B MP, PT #### [address] CO2 [Moles/Vol] 27.0 mmol/L Normal 21.0-31.0 [facility] Comment on above: Performed By: #### B MP, PT #### [place] [address] [place] GFR/1.73 sq M.predicted MDRD (S/P/Bld) [Vol rate/Area] mL/min/{1.73_m2} Normal [facility] Comment on above: Performed By: #### B MP, PT #### [address] Potassium [Moles/Vol] 4.0 mmol/L Normal 3.5-5.1 [facility] Comment on above: Performed By: #### B MP, PT #### [address] Sodium [Moles/Vol] 136 mmol/L Normal 136-145 [facility] Comment on above: Performed By: #### B MP, PT #### [address] Calcium [Mass/volume] in Ser um or PlasmaOrdered By: Antonio Steele on 12-09-2024 Calcium [Mass/Vol] 8.7 mg/dL Normal 8.6-10.3 [facility] Comment on above: Result Comment: PERF ORMED BY: [place] [address] PATHOLOGIST STAMP COLLECTOR RYAN ALMARAZ M.D. Performed By: #### B MP, PT #### [address] Creatinine [Mass/volume] in Serum or PlasmaOrdered By: Antonio Steele on 12-09-2024 Creatinine [Mass/Vol] 0.84 mg/dL Normal 0.70-1.30 [facility] Comment on above: Performed By: #### B MP, PT #### [address] ECG 12 lead ECGon 12-09-2024 ECG 12 lead ECG [facility] [place] [address] Electrocardiograph Report Signed Patient: Esme Steven MR#: [id number] : 1960 Acct:[id number] Age/Sex: 63 / M ADM Date: 12/09/24 Loc: Room: [address] [place] [address] Type: ADM IN Attending Dr: Antonio Steele MD Ordering Provider: Antonio Steele MD Date of Service: 12/09/2406/03/2049 ECG/ECG [...] QT has lengthened Confirmed by Will Koch ([id number]) on 12/11/2024 9:10:26 PM Referred By: Electronically Signed By: Will Koch Transcribed By: MUS Signed By Will Koch MD 12/11/242109 Normal [facility] ECG 12 lead ECG [facility] [address] [place] [address] [place] [address] Electrocardiograph Report Signed Patient: Esme Steven MR#: [id number] : 1960 Acct:[id number] Age/Sex: 63 / M ADM Date: 12/09/24 Loc: Room: [address] [place] [address] Type: ADM IN Attending Dr: Antonio Steele [...] QT has shortened Confirmed by Will Koch ([id number]) on 12/11/2024 9:10:22 PM Referred By: Electronically Signed By: Will Koch Transcribed By: MUS Signed By Will Koch MD 12/11/242109 Normal [facility] Glomerular filtration rate [ Volume Rate/Area] in Serum, Plasma or Blood by CreatinineOrdered By: Antonio Steele on 12-09-2024 Glomerular filtration rate [Volume Rate/Area] in Serum, Plasma or Blood by Creatinine > 60.0 mL/Min [facility] Glucose [Mass/volume] in Ser um or PlasmaOrdered By: Antonio Steele on 12-09-2024 Glucose [Mass/Vol] 190 mg/dL High 70-100 [facility] Comment on above: ADA recommended refe rence rangeRandom Glucose Reference Range is dependent on time and content of last meal. Glucose of more than 200 mg/dL in a nonstressed, ambulatory subject supports the diagnosis of Diabetes Mellitus. Result Comment: [place] om Glucose Reference Range is dependent on time and content of last meal. Glucose of more than 200 mg/dL in a nonstressed, ambulatory subject supports the diagnosis of Diabetes Mellitus. ADA recommended reference range Performed By: #### B MP, PT #### [facility] [address] [place] [address] No Panel InformationOrdered By: Antonio Steele on 12-09-2024 Pharmacy Creatinine Clearance (Chem N/A [facility] Prothrombin Time INRon 12-09 INR Coag (PPP) [Relative time] 1.3 {INR} Normal [facility] Comment on above: [...] heart valves: 3 - 4.5 PERFORMED BY: [place] [address] PATHOLOGIST STAMP COLLECTOR RYAN ALMARAZ M.D. Performed By: #### B MP, PT #### [facility] [address] [place] [address] PT Coag (PPP) [Time] 14.9 s High 9.0-12.9 [facility] Comment on above: Result Comment: A he matocrit value greater than 55% may lead to inaccurate results in coagulation testing. Patients having hematocrit values >55% require a special collection tube for coagulation studies. Please contact the laboratory at [phone] for redraw instructions. Performed By: #### B MP, PT #### [address] Urea nitrogen [Mass/volume] in Serum or PlasmaOrdered By: Antonio Steele on 12-09-2024 Urea nitrogen [Mass/Vol] 15 mg/dL Normal 7-25 [facility] Comment on above: Performed By: #### B MP, PT #### [address] ECG 12 Leadon 11-19-2024 Atrial fibrillation with controlled rate and nonspecific ST-T changes [facility] Work Phone: X-ray reportOrdered By: Rubio Vazquez on 10-23-2024 Study report [facility] [address] [place] [id number] XRay Report Signed Patient: Esme Steven MR#: [id number] : 1960 Acct:[id number] Age/Sex: 63 / M ADM Date: 5 Loc: [facility] Room: Type: REG CLI Attending Dr: Sarai [...] Vazquez M.D. 10/23/2024 7:56 PM Dictation Location: [place] [address] Transcribed By: [facility] 10/23/241955 Dictated By: Rubio Vazquez II, MD 10/23/241954 Signed By: 10/23/241955 [facility] Work Phone: XR hip RT min 2V(w/wo pelvis )*on 10-23-2024 XR hip RT min 2V(w/wo pelvis)* [facility] [address] [place] [address] XRay Report Signed Patient: Esme Steven MR#: [id number] : 1960 Acct:[id number] Age/Sex: 63 / M ADM Date: 10/23/24 Loc: [facility] Room: Type: REG CLI Attending Dr: Sarai [...] Vazquez M.D. 10/23/2024 7:56 PM Dictation Location: [place] [address] Transcribed By: [facility] 10/23/241955 Dictated By: Rubio Vazquez II, MD 10/23/241954 Signed By: 10/23/241955 Normal [facility] Basic Metabolic Panelon 09-08 Creatinine Clr Calc Pharmacy 108.50 Normal [facility] Comment on above: Result Comment: PERF ORMED BY: [facility] [address] [place] [address] PATHOLOGIST STAMP COLLECTOR RYAN ALMARAZ M.D. Performed By: #### B MP, CBC ####[place] [address] [place] [id number] [facility] GFR/1.73 sq M.predicted MDRD (S/P/Bld) [Vol rate/Area] mL/min/{1.73_m2} Normal [facility] Comment on above: Performed By: #### B MP, CBC ####[place] [address] [place] [id number] [facility] Basophils [#/volume] in Bloo d by Automated countOrdered By: Ada Valentin on 10-01-2024 Basophils (Bld) [#/Vol] 0.1 10*3/uL Normal 0.0-0.2 [facility] Comment on above: Result Comment: PERF ORMED BY: [facility] [address] [place] [id number] PATHOLOGIST STAMP COLLECTOR RYAN ALMARAZ M.D. Performed By: #### B MP, CBC ####[address] Basophils/100 leukocytes in Blood by Automated countOrdered By: Ada Valentin on 10-01-2024 Basophils/100 WBC (Bld) 0.5 % Normal . [facility] Comment on above: Performed By: #### B MP, CBC ####[address] Calcium [Mass/volume] in Ser um or PlasmaOrdered By: Ada Valentin on 10-01-2024 Calcium [Mass/Vol] 8.4 mg/dL Low 8.6-10.3 [facility] Comment on above: Performed By: #### B MP, CBC ####[address] Carbon dioxide, total [Moles /volume] in Serum or PlasmaOrdered By: Ada Valentin on 10-01-2024 CO2 [Moles/Vol] 25.4 mmol/L Normal 21.0-31.0 [facility] Comment on above: Performed By: #### B MP, CBC ####[address] Chloride [Moles/volume] in S ursula or PlasmaOrdered By: Ada Valentin on 10-01-2024 Chloride [Moles/Vol] 104 mmol/L Normal 98-107 [facility] Comment on above: Performed By: #### B MP, CBC ####[address] Complete Blood Count Auto Di ffon 10-01-2024 Mean Corpuscular HGB Conc 34.1 g/dL Normal 32.5-35.6 [facility] Comment on above: Performed By: #### B MP, CBC ####[address] NRBC% 0.1 /100{WBC} Normal 0-0.5 [facility] Comment on above: Performed By: #### B MP, CBC ####[address] [place] [address] [place] White Blood Count 13.7 [CFU]/mL High 4.1-10.5 [facility] Comment on above: Performed By: #### B MP, CBC ####[address] Creatinine [Mass/volume] in Serum or PlasmaOrdered By: Ada Valentin on 10-01-2024 Creatinine [Mass/Vol] 0.79 mg/dL Significan t change down 0.70-1.30 [facility] Comment on above: Delta: 1.32 on 09/30 Performed By: #### B MP, CBC ####[address] Eosinophils [#/volume] in Bl ood by Automated countOrdered By: Ada Valentin on 10-01-2024 Eosinophils (Bld) [#/Vol] 0.1 10*3/uL Normal 0.0-0.45 [facility] Comment on above: Performed By: #### B MP, CBC ####[address] Eosinophils/100 leukocytes i n Blood by Automated countOrdered By: Ada Valentin on 10-01-2024 Eosinophils/100 WBC (Bld) 0.9 % Normal . [facility] Comment on above: Performed By: #### B MP, CBC ####[address] Erythrocyte distribution wid th [Ratio] by Automated countOrdered By: Ada Valentin on 10-01-2024 Erythrocyte distribution width (RBC) [Ratio] 14.4 % Normal 12.0-14.8 [facility] Comment on above: Performed By: #### B MP, CBC ####[address] Erythrocytes [#/volume] in B lood by Automated countOrdered By: Ada Valentin on 10-01-2024 RBC (Bld) [#/Vol] 4.32 10*6/uL Normal 3.90-5.60 [facility] Comment on above: Performed By: #### B MP, CBC ####[place] [id number] [facility] Glucose [Mass/volume] in Ser um or PlasmaOrdered By: Ada Valentin on 10-01-2024 Glucose [Mass/Vol] 120 mg/dL High 70-100 [facility] Comment on above: ADA recommended refe rence rangeRandom Glucose Reference Range is dependent on time and content of last meal. Glucose of more than 200 mg/dL in a nonstressed, ambulatory subject supports the diagnosis of Diabetes Mellitus. Result Comment: [place] [facility] Glucose Reference Range is dependent on time and content of last meal. Glucose of more than 200 mg/dL in a nonstressed, ambulatory subject supports the diagnosis of Diabetes Mellitus. ADA recommended reference range Performed By: #### B MP, CBC ####[place] [id number] [facility] Hematocrit [Volume Fraction] of Blood by Automated countOrdered By: Ada Valentin on 10-01-2024 Hematocrit (Bld) [Volume fraction] 44.0 % Normal 38.8-50.0 [facility] Comment on above: Performed By: #### B VINH, CBC ####[place] [id number] [facility] Hemoglobin [Mass/volume] in BloodOrdered By: Ada Valentin on 10-01-2024 Hemoglobin (Bld) [Mass/Vol] 15.0 g/dL Normal 13.0-17.0 [facility] Comment on above: Performed By: #### B MP, CBC ####[place] [id number] [place] Lactate [Moles/volume] in Se rum or PlasmaOrdered By: dAa Valentin on 10-01-2024 Lactate [Moles/Vol] 1.1 mmol/L Normal 0.5-1.9 [facility] Comment on above: Lactic Acid referenc e range has been updated to 0.5 1.9 mmol/L and the critical range of 2.0 or greater. Order Comment: Comme nt Add on Result Comment: L[place] ic Acid reference range has been updated to 0.5 ? 1.9 mmol/L and the critical range of 2.0 or greater. PERFORMED BY: [facility] [address] [place] [address] PATHOLOGIST STAMP COLLECTOR RYAN ALMARAZ M.D. Performed By: #### L ACTIC ####[address] Leukocytes [#/volume] correc collins for nucleated erythrocytes in Blood by Automated counOrdered By: Ada Valentin on 10-01-2024 WBC corrected for nucl RBC Auto (Bld) [#/Vol] 13.7 10*3/uL High 4.1-10.5 [facility] Leukocytes [#/volume] in Blo od by Automated countOrdered By: Ada Valentin on 10-01-2024 WBC (Bld) [#/Vol] 13.7 10*3/uL High 4.1-10.5 [facility] Comment on above: Performed By: #### B MP, CBC ####[address] Lymphocytes [#/volume] in Bl ood by Automated countOrdered By: Ada Valentin on 10-01-2024 Lymphocytes (Bld) [#/Vol] 2.2 10*3/uL Normal 1.00-4.8 [facility] Comment on above: Performed By: #### B MP, CBC ####[address] Lymphocytes/100 leukocytes i n Blood by Automated countOrdered By: Ada Valentin on 10-01-2024 Lymphocytes/100 WBC (Bld) 16.2 % Normal . [facility] Comment on above: Performed By: #### B MP, CBC ####[address] MCH [Entitic mass] by Automa collins countOrdered By: Ada Valentin on 10-01-2024 MCH (RBC) [Entitic mass] 34.7 pg Normal 27.5-35.2 [facility] Comment on above: Performed By: #### B MP, CBC ####[facility] [id number] [place] [address] MCHC Auto (RBC) [Mass/Vol]Or dered By: Ada Valentin on 10-01-2024 MCHC (RBC) [Mass/Vol] 34.1 g/dL 32.5-35.6 [facility] MCV [Entitic volume] by Auto mated countOrdered By: Ada Valentin on 10-01-2024 MCV (RBC) [Entitic vol] 101.8 fL High 83.5-101 [facility] Comment on above: Performed By: #### B MP, CBC ####[facility] [id number] [place] [address] Monocytes [#/volume] in Bloo d by Automated countOrdered By: Ada Valentin on 10-01-2024 Monocytes (Bld) [#/Vol] 1.1 10*3/uL High 0.0-0.8 [facility] Comment on above: Performed By: #### B MP, CBC ####[address] Monocytes/100 leukocytes in Blood by Automated countOrdered By: Ada Valentin on 10-01-2024 Monocytes/100 WBC (Bld) 7.9 % Normal . [facility] Comment on above: Performed By: #### B MP, CBC ####[address] Neutrophils [#/volume] in Bl ood by Automated countOrdered By: Ada Valentin on 10-01-2024 Neutrophils (Bld) [#/Vol] 10.2 10*3/uL High 1.8-7.7 [facility] Comment on above: Performed By: #### B MP, CBC ####[place] [id number] [place] Neutrophils/100 leukocytes i n Blood by Automated countOrdered By: Ada Valentin on 10-01-2024 Neutrophils/100 WBC (Bld) 74.5 % Normal . [facility] Comment on above: Performed By: #### B MP, CBC ####[facility] [id number] [address] No Panel InformationOrdered By: Ada Valentin on 10-01-2024 Estimated GFR (CKD-EPI) > 60.0 mL/Min [facility] Creatinine Clearance (Chem 108.50 [facility] Nucleated erythrocytes [Pres ence] in Blood by Automated countOrdered By: Ada Valentin on 10-01-2024 Nucleated RBC Auto Ql (Bld) 0.1 /100{WBC} 0-0.5 [facility] Platelet mean volume [Entiti c volume] in Blood by Automated countOrdered By: Ada Valentin on 10-01-2024 Platelet mean volume (Bld) [Entitic vol] 9.5 fL Normal 6.6-10.1 [facility] Comment on above: Performed By: #### B MP, CBC ####[address] Platelets [#/volume] in Bloo d by Automated countOrdered By: Ada Valentin on 10-01-2024 Platelets (Bld) [#/Vol] 161 10*3/uL Significant change down 150-450 [facility] Comment on above: Delta: 218 on Performed By: #### B MP, CBC ####[address] Potassium [Moles/volume] in Serum or PlasmaOrdered By: Ada Valentin on 10-01-2024 Potassium [Moles/Vol] 3.6 mmol/L Normal 3.5-5.1 [facility] Comment on above: Performed By: #### B MP, CBC ####[address] Serum or plasma anion gap de terminationOrdered By: Ada Valentin on 10-01-2024 Anion gap [Moles/Vol] 9.2 mmol/L Normal 6.0-15.0 [facility] Comment on above: Performed By: #### B MP, CBC ####[address] Sodium [Moles/volume] in Ser um or PlasmaOrdered By: Ada Valentin on 10-01-2024 Sodium [Moles/Vol] 135 mmol/L Low 136-145 [facility] Comment on above: Performed By: #### B MP, CBC ####[facility] [id number] [address] Urea nitrogen [Mass/volume] in Serum or PlasmaOrdered By: Ada Valentin on 10-01-2024 Urea nitrogen [Mass/Vol] 17 mg/dL Normal 7-25 [facility] Comment on above: Performed By: #### B MP, CBC ####[facility] [id number] [address] Appearance of UrineOrdered B y: Radha [facility]ina on 09-30-2024 Appearance (U) Clear Normal Clear [facility] Comment on above: Order Comment: Name Collection Type:: Clean-Voided Midstream Performed By: #### B MP, PT #### [facility] [address] BNP ser/plasOrdered By: Anatoliy [facility] on 09-30-2024 Natriuretic peptide B (Bld) [Mass/Vol] 308.0 pg/mL High 5-100 [facility] Comment on above: Result Comment: PERF ORMED BY: [place] [address] PATHOLOGIST STAMP COLLECTOR RYAN ALMARAZ M.D. Performed By: #### B MP, PT #### [facility] [address] Bacteria [Presence] in Urine by AutomatedOrdered By: Radha [facility]ina on 09-30-2024 Bacteria Auto Ql (U) Rare [HPF] None Seen [facility] Basic Metabolic Panelon 09-08 Anion gap [Moles/Vol] 13.3 mmol/L Normal 6.0-15.0 [facility] Comment on above: Performed By: #### B MP, PT #### [facility] [address] Calcium [Mass/Vol] 9.3 mg/dL Normal 8.6-10.3 [facility] Comment on above: Performed By: #### B MP, PT #### [address] Chloride [Moles/Vol] 101 mmol/L Normal 98-107 [facility] Comment on above: Performed By: #### B MP, PT #### [facility] [address] [place] [address] [place] CO2 [Moles/Vol] 24.7 mmol/L Normal 21.0-31.0 [facility] Comment on above: Performed By: #### B MP, PT #### [address] Creatinine [Mass/Vol] 1.32 mg/dL Significan t change down 0.70-1.30 [facility] Comment on above: Performed By: #### B MP, PT #### [place] [address] [place] Creatinine Clr Calc Pharmacy 66.94 Normal [facility] Comment on above: Result Comment: PERF ORMED BY: [place] [address] PATHOLOGIST STAMP COLLECTOR RYAN ALMARAZ M.D. Performed By: #### B MP, PT #### [place] [address] [place] GFR/1.73 sq M.predicted MDRD (S/P/Bld) [Vol rate/Area] mL/min/{1.73_m2} Normal [facility] Comment on above: Performed By: #### B MP, PT #### [place] [address] [place] Glucose [Mass/Vol] 171 mg/dL High 70-100 [facility] Comment on above: Result Comment: [place] [facility] Glucose Reference Range is dependent on time and content of last meal. Glucose of more than 200 mg/dL in a nonstressed, ambulatory subject supports the diagnosis of Diabetes Mellitus. ADA recommended reference range Performed By: #### B MP, PT #### [address] [address] [place] Potassium [Moles/Vol] 4.0 mmol/L Normal 3.5-5.1 [facility] Comment on above: Performed By: #### B MP, PT #### [address] Sodium [Moles/Vol] 135 mmol/L Low 136-145 [facility] Comment on above: Performed By: #### B MP, PT #### [address] Urea nitrogen [Mass/Vol] 17 mg/dL Normal 7-25 [facility] Comment on above: Performed By: #### B MP, PT #### [address] Bilirubin Test strip Ql (U)O rdered By: Radha Medina on 09-30-2024 Bilirubin Ql (U) Negative Negative [facility] Blood Cultureon 09-30-2024 Bacteria identified Cx Nom (Bld) NO GROWTH 5 DAYS PERFORMED BY: [place] [address] PATHOLOGIST STAMP COLLECTOR RYAN ALMARAZ M.D. Normal [facility] Comment on above: Performed By: #### C UBLD, LACTIC ####[address] Bacteria identified Cx Nom (Bld) NO GROWTH 5 DAYS PERFORMED BY: [place] [address] PATHOLOGIST STAMP COLLECTOR RYAN ALMARAZ M.D. Normal [facility] Comment on above: Performed By: #### C UBLD, LACTIC ####[address] head/brain wo conon 09-30 CT head/brain wo con [facility] [place] [address] CT Scan Report Signed Patient: Esme Steven MR#: [id number] : 1960 Acct:[id number] Age/Sex: 63 / M ADM Date: 09/30/24 Loc: 3T Room: [address] [place] [address] Type: DIS INOo Attending Dr: Leidy Nuno [...] Paul M.D. 09/30/2024 4:34 PM Dictation Location: [place] [address] Transcribed By: [facility] 09/30/24 1634 Dictated By: Ap Paul MD 09/30/24 1630 Signed By: 09/30/24 1634 Normal [facility] Color of Urine by AutoOrdere d By: Radha Medina on 09-30-2024 Color (U) Yellow Normal Yellow [facility] Comment on above: Order Comment: Name Collection Type:: Clean-Voided Midstream Performed By: #### B VINH, PT #### [address] Complete Blood Count Auto Di ffon 09-30-2024 Basophils (Bld) [#/Vol] 0.1 10*3/uL Normal 0.0-0.2 [facility] Comment on above: Result Comment: PERF ORMED BY: [place] [address] PATHOLOGIST STAMP COLLECTOR RYAN ALMARAZ M.D. Performed By: #### B VINH, PT #### [place] [address] [place] Basophils/100 WBC (Bld) 0.6 % Normal . [facility] Comment on above: Performed By: #### B MP, PT #### [facility] [address] [place] [address] [place] Eosinophils (Bld) [#/Vol] 0.0 10*3/uL Normal 0.0-0.45 [facility] Comment on above: Performed By: #### B MP, PT #### [address] Eosinophils/100 WBC (Bld) 0.2 % Normal . [facility] Comment on above: Performed By: #### B MP, PT #### [address] Erythrocyte distribution width (RBC) [Ratio] 14.0 % Normal 12.0-14.8 [facility] Comment on above: Performed By: #### B MP, PT #### [address] Hematocrit (Bld) [Volume fraction] 51.1 % High 38.8-50.0 [facility] Comment on above: Performed By: #### B MP, PT #### [address] Hemoglobin (Bld) [Mass/Vol] 17.3 g/dL High 13.0-17.0 [facility] Comment on above: Performed By: #### B MP, PT #### [place] [address] [place] Lymphocytes (Bld) [#/Vol] 1.9 10*3/uL Normal 1.00-4.8 [facility] Comment on above: Performed By: #### B MP, PT #### [place] [address] [place] Lymphocytes/100 WBC (Bld) 11.5 % Normal . [facility] Comment on above: Performed By: #### B MP, PT #### [place] [address] MCH (RBC) [Entitic mass] 34.4 pg Normal 27.5-35.2 [facility] Comment on above: Performed By: #### B MP, PT #### [address] MCV (RBC) [Entitic vol] 101.9 fL High 83.5-101 [facility] Comment on above: Performed By: #### B MP, PT #### [address] Mean Corpuscular HGB Conc 33.8 g/dL Normal 32.5-35.6 [facility] Comment on above: Performed By: #### B MP, PT #### [address] Monocytes (Bld) [#/Vol] 0.7 10*3/uL Normal 0.0-0.8 [facility] Comment on above: Performed By: #### B MP, PT #### [address] Monocytes/100 WBC (Bld) 22.40 % High 0.00-20.00 [facility] Comment on above: Result Comment: For adults in ED, MDW > 20.0 may be associated with a higher risk of sepsis during the first 12 hrs of hospital admission Performed By: #### B MP, PT #### [address] Monocytes/100 WBC (Bld) 3.9 % Normal . [facility] Comment on above: Performed By: #### B MP, PT #### [address] Neutrophils (Bld) [#/Vol] 14.2 10*3/uL High 1.8-7.7 [facility] Comment on above: Performed By: #### B MP, PT #### [address] Neutrophils/100 WBC (Bld) 83.8 % Normal . [facility] Comment on above: Performed By: #### B MP, PT #### [facility] [address] NRBC% 0.1 /100{WBC} Normal 0-0.5 [facility] Comment on above: Performed By: #### B MP, PT #### [facility] [address] Platelet mean volume (Bld) [Entitic vol] 9.8 fL Normal 6.6-10.1 [facility] Comment on above: Performed By: #### B MP, PT #### [facility] [address] [place] [address] [place] Platelets (Bld) [#/Vol] 218 10*3/uL Normal 150-450 [facility] Comment on above: Performed By: #### B MP, PT #### [place] [address] [place] RBC (Bld) [#/Vol] 5.01 10*6/uL Normal 3.90-5.60 [facility] Comment on above: Performed By: #### B MP, PT #### [place] [address] [place] WBC (Bld) [#/Vol] 16.9 10*3/uL High 4.1-10.5 [facility] Comment on above: Performed By: #### B MP, PT #### [address] White Blood Count 16.9 [CFU]/mL High 4.1-10.5 [facility] Comment on above: Performed By: #### B MP, PT #### [place] [address] [place] Creatine kinase [Enzymatic a ctivity/volume] in Serum or PlasmaOrdered By: Radha Medina on 09-30-2024 CK [Catalytic activity/Vol] 18 U/L Low 30-223 [facility] Comment on above: Performed By: #### B MP, PT #### [place] [address] [place] Dipstick and Microscopicon 0 6-24-2025 Bacteria,Urine Rare Normal None Seen [facility] Comment on above: Order Comment: Name Collection Type:: Clean-Voided Midstream Performed By: #### B MP, PT #### [facility] [address] [place] [address] [place] Bilirubin,Urine Negative Normal Negative [facility] Comment on above: Order Comment: Name Collection Type:: Clean-Voided Midstream Performed By: #### B MP, PT #### [facility] [address] [place] [address] [place] Glucose Ql (U) 70 mg/dL Normal Normal [facility] Comment on above: Order Comment: Name Collection Type:: Clean-Voided Midstream Performed By: #### B MP, PT #### [facility] [address] [place] [id number] [place] Hyaline Casts,Urine 20-49 Normal 0-8 [facility] Comment on above: Order Comment: Name Collection Type:: Clean-Voided Midstream Performed By: #### B MP, PT #### [place] [address] [place] Mucus,Urine 2+ [LPF] Critically abnormal [facility] Comment on above: Order Comment: Name Collection Type:: Clean-Voided Midstream Result Comment: PERF ORMED BY: [place] [address] PATHOLOGIST STAMP COLLECTOR RYAN ALMARAZ M.D. Performed By: #### B MP, PT #### [facility] [address] [place] [address] [place] Nitrite,Urine Negative Normal Negative [facility] Comment on above: Order Comment: Name Collection Type:: Clean-Voided Midstream Performed By: #### B MP, PT #### [facility] [address] [place] [id number] [place] Occult Blood,Urine Negative Normal Negative [facility] Comment on above: Order Comment: Name Collection Type:: Clean-Voided Midstream Result Comment: PERF ORMED BY: [place] [address] PATHOLOGIST STAMP COLLECTOR RYAN ALMARAZ M.D. Performed By: #### B MP, PT #### [address] RBC,Urine 1-2 Normal 0-4 [facility] Comment on above: Order Comment: Name Collection Type:: Clean-Voided Midstream Performed By: #### B MP, PT #### [place] [address] [place] Specificy [place],Urine 1.028 Normal 1.001-1.03 0 [facility] Comment on above: Order Comment: Name Collection Type:: Clean-Voided Midstream Performed By: #### B MP, PT #### [address] Squamous Epithelial Cell,Urine 1-2 Normal 0-2 [facility] Comment on above: Order Comment: Name Collection Type:: Clean-Voided Midstream Performed By: #### B MP, PT #### [address] Urobilinogen,Urine Normal Normal Normal [facility] Comment on above: Order Comment: Name Collection Type:: Clean-Voided Midstream Performed By: #### B MP, PT #### [place] [address] [place] WBC,Urine 1-2 Normal 0-4 [facility] Comment on above: Order Comment: Name Collection Type:: Clean-Voided Midstream Performed By: #### B MP, PT #### [address] ECG 12 lead ECGon 09-30-2024 ECG 12 lead ECG [facility] Main [place] [address] [place] [address] Electrocardiograph Report Signed Patient: Esme Steven MR#: [id number] : 1960 Acct:[id number] Age/Sex: 63 / M ADM Date: 09/30/24 Loc: Room: [address] [place] [address] Type: ADM INOo Attending Dr: Yazid Yaakov DO Ordering Provider: Radha Medina MD Date [...] wave abnormality Confirmed by Radha Medina MD ([id number]) on 09/30/2024 9:27:27 PM Referred By: Electronically Signed By: Radha Medina MD Transcribed By: MUS Signed By Radha Medina MD 09/08 Normal [facility] Epithelial cells.squamous [# /area] in Urine sediment by Automated countOrdered By: Radha Medina on 09-30-2024 Epithelial cells.squamous Auto (Urine sed) [#/Area] 1-2 [HPF] 0-2 [facility] Erythrocytes [#/area] in Uri ne sediment by Automated countOrdered By: Radha Medina on 09-30-2024 RBC Auto (Urine sed) [#/Area] 1-2 [HPF] 0-4 [facility] Glucose [Mass/volume] in Uri ne by Test stripOrdered By: Radha Medina on 09-30-2024 Glucose Test strip (U) [Mass/Vol] 70 mg/dL High Normal [facility] Hemoglobin Test strip Ql (U) Ordered By: Radha Medina on 09-30-2024 Hemoglobin Ql (U) Negative Negative [facility] Hyaline casts [#/area] in Ur ine sediment by Automated countOrdered By: Radha Medina on 09-30-2024 Hyaline casts Auto (Urine sed) [#/Area] 20-49 [LPF] High 0-8 [facility] INR in Platelet poor plasma by Coagulation assayOrdered By: Radha Medina on 09-30-2024 INR Coag (PPP) [Relative time] 1.0 {INR} Normal [facility] Comment on above: INR Therapeutic Rang [...] heart valves: 3 - 4.5 PERFORMED BY: [place] [address] PATHOLOGIST STAMP COLLECTOR RYAN ALMARAZ M.D. Performed By: #### B MP, PT #### [facility] [address] [place] [address] Ketones [Presence] in Urine by Test stripOrdered By: Radha Medina on 09-30-2024 Ketones Ql (U) Negative Normal Negative [facility] Comment on above: Order Comment: Name Collection Type:: Clean-Voided Midstream Performed By: #### B MP, PT #### [facility] [address] [place] [address] Laboratory - Microbiology an d Antimicrobial susceptibilityOrdered By: Radha Medina on 09-30-2024 Bacteria identified Cx Nom (Bld) NO GROWTH 5 DAYS [facility] Bacteria identified Cx Nom (Bld) NO GROWTH 5 DAYS [facility] Lactic Acidon 09-30-2024 Lactate [Moles/Vol] 2.2 mmol/L Off scale high 0.5-1.9 [facility] Comment on above: Result Comment: Crit ical Result : Called to and read back by: EVELYN TODD at: 09/30/2024 16:27:07 by:[id number] Lactic Acid reference range has been updated to 0.5 ? 1.9 mmol/L and the critical range of 2.0 or greater. PERFORMED BY: [place] [id number] PATHOLOGIST STAMP COLLECTOR RYAN ALMARAZ M.D. Performed By: #### C UBLD, LACTIC ####[facility] Lactic Acid Reflexon 025 Lactic Acid Reflex 2.4 mmol/L Off scale high 0.5-1.9 [facility] Comment on above: Result Comment: Crit ical Result : Called to and read back by: SHAHRZAD DIAZ at: 09/30/2024 20:32:04 by: Lactic Acid reference range has been updated to 0.5 ? 1.9 mmol/L and the critical range of 2.0 or greater. PERFORMED BY: [place] [address] PATHOLOGIST STAMP COLLECTOR RYAN ALMARAZ M.D. Performed By: #### B MP, PT #### [address] Leukocyte esterase [Presence ] in Urine by Test stripOrdered By: Radha Medina on 09-30-2024 Leukocyte esterase Test strip Ql (U) Negative Normal Negative [facility] Comment on above: Order Comment: Name Collection Type:: Clean-Voided Midstream Performed By: #### B MP, PT #### [address] Leukocytes [#/area] in Urine sediment by Automated countOrdered By: Radha Medina on 09-30-2024 WBC Auto (Urine sed) [#/Area] 1-2 [HPF] 0-4 [facility] Monocyte distribution width [Entitic volume] in Blood by AutomatedOrdered By: Radha Medina on 09-30-2024 Monocyte distribution width Auto (Bld) [Entitic vol] 22.40 % High 0.00-20.00 [facility] Comment on above: For adults in ED, MD W > 20.0 may be associated with a higher risk of sepsis during the first 12 hrs of hospital admission Mucus [Presence] in Urine by AutomatedOrdered By: Radha Medina on 09-30-2024 Mucus Auto Ql (U) 2+ [LPF] Abnormal [facility] Nitrite Test strip Ql (U)Ord ered By: Radha Medina on 09-30-2024 Nitrite Ql (U) Negative Negative [facility] Protein [Mass/volume] in Uri ne by Test stripOrdered By: Radha Medina on 09-30-2024 Protein (U) [Mass/Vol] 20 mg/dL Normal Negative [facility] Comment on above: Order Comment: Name Collection Type:: Clean-Voided Midstream Performed By: #### B MP, PT #### [address] Prothrombin time (PT)Ordered By: Radha Medina on 09-30-2024 PT Coag (PPP) [Time] 11.8 s Normal 9.0-12.9 [facility] Comment on above: A hematocrit value g reater than 55% may lead to inaccurate results in coagulation testing. Patients having hematocrit values >55% require a special collection tube for coagulation studies. Please contact the laboratory at [phone] for redraw instructions. Result Comment: A he matocrit value greater than 55% may lead to inaccurate results in coagulation testing. Patients having hematocrit values >55% require a special collection tube for coagulation studies. Please contact the laboratory at [phone] for redraw instructions. Performed By: #### B MP, PT #### [place] [id number] [facility] Specific gravity Test strip (U) [Rel density]Ordered By: Radha Medina on 09-30-2024 Specific gravity (U) [Rel density] 1.028 1.001-1.03 0 [facility] Troponin I High Sensitivityo n 09-30-2024 Troponin I High Sensitivity 12 Normal 0-20 [facility] Comment on above: Result Comment: The Troponin units of report have been changed to meet the Chest Pain Accreditation requirement, element EC5.M1l2. Troponin units are changed from pg/ml to ng/L. Also, the decimal is removed and results are in whole numbers. PERFORMED BY: [place] [address] PATHOLOGIST STAMP COLLECTOR RYAN ALMARAZ M.D. Performed By: #### B MP, PT #### [address] Troponin I.cardiac [Mass/vol ume] in Serum or Plasma by Detection limit <= 0.01 ng/mLOrdered By: Radha Medina on 09-30-2024 Troponin I.cardiac DL <= 0.01 ng/mL [Mass/Vol] 12 ng/L 0-20 [facility] Comment on above: The Troponin units o f report have been changed to meet the Chest Pain Accreditation requirement, element EC5.M1l2. Troponin units are changed from pg/ml to ng/L. Also, the decimal is removed and results are in whole numbers. Urine Cultureon 09-30-2024 Bacteria identified Cx Nom (U) No Growth 2 Days PERFORMED BY: [place] [address] PATHOLOGIST STAMP COLLECTOR RYAN Alvarez [facility] Comment on above: Performed By: #### B MP, PT #### [address] Urine cultureOrdered By: Arias Medina on 09-30-2024 Bacteria identified Cx Nom (U) No Growth 2 Days [facility] Urobilinogen Test strip (U) [Mass/Vol]Ordered By: Radha Medina on 09-30-2024 Urobilinogen (U) [Mass/Vol] Normal mg/dL Normal [facility] X-ray reportOrdered By: Don Castro on 09-30-2024 Study report [facility] [place] [address] [place] [address] XRay Report Signed Patient: Esme Steven MR#: [id number] : 1960 Acct:[id number] Age/Sex: 63 / M ADM Date: 5 Loc: ER Room: Type: [facility] ER Attending Dr: Copies to: Radha Medina [...] Jr., D.O. 09/30/2024 2:56 PM Dictation Location: [facility]-22 Transcribed By: PWS 09/30/241455 Dictated By: Alex Castro Jr, DO 09/30/241453 Signed By: 09/30/241455 [facility] XR chest 1V portableon 09-30 XR chest 1V portable [facility] [place] [address] [place] [address] XRay Report Signed Patient: Esme Steven MR#: [id number] : 1960 Acct:[id number] Age/Sex: 63 / M ADM Date: 09/30/24 Loc: Room: [address] [place] [address] Type: DIS INOo Attending Dr: Leidy Nuno [...] Jr., D.O. 09/30/2024 2:56 PM Dictation Location: [facility]- Transcribed By: [facility] 09/30/241455 Dictated By: Alex Castro Jr, DO 09/30/241453 Signed By: 09/30/241455 Normal [facility] pH of Urine by Test stripOrd ered By: Radha Medina on 09-30-2024 pH (U) 5.5 [pH] Normal 5.0-9.0 [facility] Comment on above: Order Comment: Name Collection Type:: Clean-Voided Midstream Performed By: #### B MP, PT #### [address] BNP ser/plasOrdered By: Luc Ascencio on 09-29-2024 Natriuretic peptide B (Bld) [Mass/Vol] 417.0 pg/mL High 5-100 [facility] Comment on above: Result Comment: PERF ORMED BY: [place] [address] PATHOLOGIST STAMP COLLECTOR RYAN ALMARAZ M.D. Performed By: #### R ENAL #### [address] Basic Metabolic Panelon 09-08 Creatinine Clr Calc Pharmacy 112.50 Normal [facility] Comment on above: Order Comment: FASTI NG Y Performed By: #### R ENAL #### [address] GFR/1.73 sq M.predicted MDRD (S/P/Bld) [Vol rate/Area] mL/min/{1.73_m2} Normal [facility] Comment on above: Order Comment: FASTI NG Y Performed By: #### R ENAL #### [address] Basophils [#/volume] in Bloo d by Automated countOrdered By: Salinas Ascencio on 09-29-2024 Basophils (Bld) [#/Vol] 0.1 10*3/uL Normal 0.0-0.2 [facility] Comment on above: Result Comment: PERF ORMED BY: [place] [address] PATHOLOGIST STAMP COLLECTOR RYAN ALMARAZ M.D. Performed By: #### R ENAL #### [place] [address] [place] Basophils/100 leukocytes in Blood by Automated countOrdered By: Salinas Ascencio on 09-29-2024 Basophils/100 WBC (Bld) 1.0 % Normal . [facility] Comment on above: Performed By: #### R ENAL #### [facility] [address] [place] [address] [place] Calcium [Mass/volume] in Ser um or PlasmaOrdered By: Salinas Ascencio on 09-29-2024 Calcium [Mass/Vol] 8.9 mg/dL Normal 8.6-10.3 [facility] Comment on above: Order Comment: FASTI NG Y Performed By: #### R ENAL #### [facility] [address] [place] [address] [place] Carbon dioxide, total [Moles /volume] in Serum or PlasmaOrdered By: Salinas Ascencio on 09-29-2024 CO2 [Moles/Vol] 24.6 mmol/L Normal 21.0-31.0 [facility] Comment on above: Order Comment: FASTI NG Y Performed By: #### R ENAL #### [place] [address] [place] Chloride [Moles/volume] in S ursula or PlasmaOrdered By: Salinas Ascencio on 09-29-2024 Chloride [Moles/Vol] 104 mmol/L Normal 98-107 [facility] Comment on above: Order Comment: FASTI NG Y Performed By: #### R ENAL #### [place] [address] [place] Cholesterol [Mass/volume] in Serum or PlasmaOrdered By: Salinas Ascencio on 09-29-2024 Cholesterol [Mass/Vol] 194 mg/dL Normal 140-200 [facility] Comment on above: Chol less than 200 m g/dl low riskChol 201-239 mg/dl borderline riskChol 240 mg/dl and greater high risk Order Comment: FASTI NG Y Result Comment: Chol less than 200 mg/dl low risk Chol 201-239 mg/dl borderline risk Chol 240 mg/dl and greater high risk Performed By: #### R ENAL #### [facility] [address] [place] [address] [place] Cholesterol in HDL [Mass/vol ume] in Serum or PlasmaOrdered By: Salinas Ascencio on 09-29-2024 Cholesterol in HDL [Mass/Vol] 36 mg/dL Normal 23-92 [facility] Comment on above: HDL CHOL ATP-III CLA SSIFICATION Cardiovascular RiskHDL > or equal to 60 mg/dL LOWHDL < 40 mg/dL HIGH Order Comment: MAZIN PATTERSON Y Result Comment: HDL CHOL ATP-III CLASSIFICATION Cardiovascular Risk HDL > or equal to 60 mg/dL LOW HDL < 40 mg/dL HIGH Performed By: #### R ENAL #### [facility] [address] [place] [address] [place] Cholesterol in LDL Calc [Mas s/Vol]Ordered By: Salinas Ascencio on 09-29-2024 Cholesterol in LDL [Mass/Vol] 103 mg/dL High 0-100 [facility] Comment on above: LDL ATP III CLASSIFI CATIONLDL less than 100 mg/dL OptimalLDL 100-129 mg/dL Near or above optimalLDL 130-159 mg/dL Borderline highLDL 160-189 mg/dL HighLDL greater than 189 mg/dL Very high Cholesterol in VLDL Calc [Ma ss/Vol]Ordered By: Salinas Ascencio on 09-29-2024 Cholesterol in VLDL [Mass/Vol] 54 mg/dL [facility] Complete Blood Count Auto Di ffon 09-29-2024 Mean Corpuscular HGB Conc 33.7 g/dL Normal 32.5-35.6 [facility] Comment on above: Performed By: #### R ENAL #### [facility] [address] [place] [address] [place] NRBC% 0.2 /100{WBC} Normal 0-0.5 [facility] Comment on above: Performed By: #### R ENAL #### [facility] [address] [place] [id number] [place] White Blood Count 13.0 [CFU]/mL High 4.1-10.5 [facility] Comment on above: Performed By: #### R ENAL #### [facility] [address] [place] [address] [place] Creatinine [Mass/volume] in Serum or PlasmaOrdered By: Salinas Ascencio on 09-29-2024 Creatinine [Mass/Vol] 0.80 mg/dL Normal 0.70-1.30 [facility] Comment on above: Order Comment: MAZIN PATTERSON Fidencio Performed By: #### R ENAL #### [place] [id number] [facility] ECG 12 lead ECGon 09-29-2024 ECG 12 lead ECG [facility] [place] [address] Electrocardiograph Report Signed Patient: Esme Steven MR#: [id number] : 1960 Acct:[id number] Age/Sex: 63 / M ADM Date: 09/29/24 Loc: 4P Room: [address] [place] [address] Type: ADM INOo Attending Dr: Tomy Cabello [...] in Lateral leads Confirmed by Will Koch ([id number]) on 09/29/2024 2:14:15 PM Referred By: Electronically Signed By: Will Koch Transcribed By: MUS Signed By Will Koch MD 09/29/24 1414 Normal [facility] ECG 12 lead ECG [facility] [place] [address] Electrocardiograph Report Signed Patient: Esme Steven MR#: [id number] : 1960 Acct:[id number] Age/Sex: 63 / M ADM Date: 09/29/24 Loc: 4P Room: [address] [place] [address] Type: ADM INOo Attending Dr: Tomy Cabello [...] age undetermined Abnormal ECG Confirmed by Will Koch ([id number]) on 09/29/2024 2:14:06 PM Referred By: Electronically Signed By: Will Koch Transcribed By: MUS Signed By Will Koch MD 09/29/24 1414 Normal [facility] Eosinophils [#/volume] in Bl ood by Automated countOrdered By: Salinas Ascencio on 09-29-2024 Eosinophils (Bld) [#/Vol] 0.1 10*3/uL Normal 0.0-0.45 [facility] Comment on above: Performed By: #### R ENAL #### [facility] [address] [place] [address] Eosinophils/100 leukocytes i n Blood by Automated countOrdered By: Salinas Ascencio on 09-29-2024 Eosinophils/100 WBC (Bld) 0.6 % Normal . [facility] Comment on above: Performed By: #### R ENAL #### [facility] [address] Erythrocyte distribution wid th [Ratio] by Automated countOrdered By: Salinas Ascencio on 09-29-2024 Erythrocyte distribution width (RBC) [Ratio] 14.3 % Normal 12.0-14.8 [facility] Comment on above: Performed By: #### R ENAL #### [facility] [address] Erythrocytes [#/volume] in B lood by Automated countOrdered By: Salinas Ascencio on 09-29-2024 RBC (Bld) [#/Vol] 4.62 10*6/uL Normal 3.90-5.60 [facility] Comment on above: Performed By: #### R ENAL #### [facility] [address] [place] [address] [place] Glucose [Mass/volume] in Ser um or PlasmaOrdered By: Salinas Ascencio on 09-29-2024 Glucose [Mass/Vol] 91 mg/dL Normal 70-100 [facility] Comment on above: ADA recommended refe rence rangeRandom Glucose Reference Range is dependent on time and content of last meal. Glucose of more than 200 mg/dL in a nonstressed, ambulatory subject supports the diagnosis of Diabetes Mellitus. Order Comment: FASTI NG Y Result Comment: [place] om Glucose Reference Range is dependent on time and content of last meal. Glucose of more than 200 mg/dL in a nonstressed, ambulatory subject supports the diagnosis of Diabetes Mellitus. ADA recommended reference range Performed By: #### R ENAL #### [place] [address] [place] Hematocrit [Volume Fraction] of Blood by Automated countOrdered By: Salinas Ascencio on 09-29-2024 Hematocrit (Bld) [Volume fraction] 47.6 % Normal 38.8-50.0 [facility] Comment on above: Performed By: #### R ENAL #### [address] Hemoglobin [Mass/volume] in BloodOrdered By: Salinas Ascencio on 09-29-2024 Hemoglobin (Bld) [Mass/Vol] 16.0 g/dL Normal 13.0-17.0 [facility] Comment on above: Performed By: #### R ENAL #### [place] [address] [place] INR in Platelet poor plasma by Coagulation assayOrdered By: Salinas Ascencio on 09-29-2024 INR Coag (PPP) [Relative time] 1.0 {INR} Normal [facility] Comment on above: INR Therapeutic Rang [...] 4.5 Performed By: #### R ENAL #### [facility] [address] Leukocytes [#/volume] correc collins for nucleated erythrocytes in Blood by Automated counOrdered By: Salinas Ascencio on 09-29-2024 WBC corrected for nucl RBC Auto (Bld) [#/Vol] 13.0 10*3/uL High 4.1-10.5 [facility] Leukocytes [#/volume] in Blo od by Automated countOrdered By: Salinas Ascencio on 09-29-2024 WBC (Bld) [#/Vol] 13.0 10*3/uL High 4.1-10.5 [facility] Comment on above: Performed By: #### R ENAL #### [address] Lipid Panelon 09-29-2024 LDL Cholesterol,Calculated 103 mg/dL High 0-100 [facility] Comment on above: Order Comment: MAZIN Nicolas Result Comment: LDL ATP III CLASSIFICATION LDL less than 100 mg/dL Optimal LDL 100-129 mg/dL Near or above optimal LDL 130-159 mg/dL Borderline high LDL 160-189 mg/dL High LDL greater than 189 mg/dL Very high Performed By: #### R ENAL #### [address] Triglyceride w/Reflex 273 mg/dL High 0-149 [facility] Comment on above: Order Comment: MAZIN Nicolas Result Comment: TRIG ATP III CLASSIFICATION TRIG less than 150 mg/dL Normal TRIG 150-199 mg/dL Borderline high TRIG 200-500 mg/dL High TRIG greater than 500 mg/dL Very high Standard traceable to the Center for Disease Conrtrol and Prevention (CDC) test method. Performed By: #### R ENAL #### [address] VLDL CHOLESTEROL 54 mg/dL Normal [facility] Comment on above: Order Comment: MAZIN PATTERSON Y Performed By: #### R ENAL #### [address] Lymphocytes [#/volume] in Bl ood by Automated countOrdered By: Salinas Ascencio on 09-29-2024 Lymphocytes (Bld) [#/Vol] 2.2 10*3/uL Normal 1.00-4.8 [facility] Comment on above: Performed By: #### R ENAL #### [address] Lymphocytes/100 leukocytes i n Blood by Automated countOrdered By: Salinas Ascencio on 09-29-2024 Lymphocytes/100 WBC (Bld) 16.8 % Normal . [facility] Comment on above: Performed By: #### R ENAL #### [address] MCH [Entitic mass] by Automa collins countOrdered By: Salinas Ascencio on 09-29-2024 MCH (RBC) [Entitic mass] 34.7 pg Normal 27.5-35.2 [facility] Comment on above: Performed By: #### R ENAL #### [address] MCHC Auto (RBC) [Mass/Vol]Or dered By: Salinas Ascencio on 09-29-2024 MCHC (RBC) [Mass/Vol] 33.7 g/dL 32.5-35.6 [facility] MCV [Entitic volume] by Auto mated countOrdered By: Salinas Ascencio on 09-29-2024 MCV (RBC) [Entitic vol] 103.0 fL High 83.5-101 [facility] Comment on above: Performed By: #### R ENAL #### [place] [address] [place] Magnesium [Mass/volume] in S ursula or PlasmaOrdered By: Salinas Ascencio on 09-29-2024 Magnesium [Mass/Vol] 1.6 mg/dL Low 1.9-2.7 [facility] Comment on above: Order Comment: FASTShyann NG Y Performed By: #### R ENAL #### [place] [address] [place] Monocytes [#/volume] in Bloo d by Automated countOrdered By: Salinas Ascencio on 09-29-2024 Monocytes (Bld) [#/Vol] 1.1 10*3/uL High 0.0-0.8 [facility] Comment on above: Performed By: #### R ENAL #### [place] [address] [place] Monocytes/100 leukocytes in Blood by Automated countOrdered By: Salinas Ascencio on 09-29-2024 Monocytes/100 WBC (Bld) 8.8 % Normal . [facility] Comment on above: Performed By: #### R ENAL #### [place] [address] [place] Neutrophils [#/volume] in Bl ood by Automated countOrdered By: Salinas Ascencio on 09-29-2024 Neutrophils (Bld) [#/Vol] 9.4 10*3/uL High 1.8-7.7 [facility] Comment on above: Performed By: #### R ENAL #### [place] [address] [place] Neutrophils/100 leukocytes i n Blood by Automated countOrdered By: Salinasdread Ascencio on 09-29-2024 Neutrophils/100 WBC (Bld) 72.8 % Normal . [facility] Comment on above: Performed By: #### R ENAL #### [address] [place] [address] [place] No Panel InformationOrdered By: Salinas Ascencio on 09-29-2024 Estimated GFR (CKD-EPI) > 60.0 mL/Min [facility] Creatinine Clearance (Chem 112.50 [facility] Nucleated erythrocytes [Pres ence] in Blood by Automated countOrdered By: Salinas Ascencio on 09-29-2024 Nucleated RBC Auto Ql (Bld) 0.2 /100{WBC} 0-0.5 [facility] Partial Thromboplastin Timeo n 09-29-2024 aPTT Coag (Bld) [Time] 23.1 s Low 25.1-36.5 [facility] Comment on above: Result Comment: A he matocrit value greater than 55% may lead to inaccurate results in coagulation testing. Patients having hematocrit values >55% require a special collection tube for coagulation studies. Please contact the laboratory at [phone] for redraw instructions. PERFORMED BY: [place] [address] PATHOLOGIST STAMP COLLECTOR RYAN ALMARAZ M.D. Performed By: #### R ENAL #### [address] Platelet mean volume [Entiti c volume] in Blood by Automated countOrdered By: Salinas Ascencio on 09-29-2024 Platelet mean volume (Bld) [Entitic vol] 9.6 fL Normal 6.6-10.1 [facility] Comment on above: Performed By: #### R ENAL #### [address] Platelets [#/volume] in Bloo d by Automated countOrdered By: Salinas Ascencio on 09-29-2024 Platelets (Bld) [#/Vol] 184 10*3/uL Normal 150-450 [facility] Comment on above: Performed By: #### R ENAL #### [address] Potassium [Moles/volume] in Serum or PlasmaOrdered By: Salinas Ascencio on 09-29-2024 Potassium [Moles/Vol] 3.6 mmol/L Normal 3.5-5.1 [facility] Comment on above: Hemolysis is present at a level that could interfere with the result.Contact lab if redraw is required Order Comment: FASTI NG Y Result Comment: Hemo lysis is present at a level that could interfere with the result. Contact lab if redraw is required Performed By: #### R ENAL #### [address] Prothrombin time (PT)Ordered By: Salinas Ascencio on 09-29-2024 PT Coag (PPP) [Time] 11.5 s Normal 9.0-12.9 [facility] Comment on above: A hematocrit value g reater than 55% may lead to inaccurate results in coagulation testing. Patients having hematocrit values >55% require a special collection tube for coagulation studies. Please contact the laboratory at [phone] for redraw instructions. Result Comment: A he matocrit value greater than 55% may lead to inaccurate results in coagulation testing. Patients having hematocrit values >55% require a special collection tube for coagulation studies. Please contact the laboratory at [phone] for redraw instructions. Performed By: #### R ENAL #### [address] Serum or plasma anion gap de terminationOrdered By: Salinas Ascencio on 09-29-2024 Anion gap [Moles/Vol] 11.0 mmol/L Normal 6.0-15.0 [facility] Comment on above: Order Comment: FASTShyann NG Y Performed By: #### R ENAL #### [address] Serum or plasma total choles terol/high density lipoprotein (HDL) cholesterol mass ratOrdered By: Salinas Ascencio on 09-29-2024 Cholesterol.total/Chol esterol in HDL [Mass ratio] 5.4 {ratio} Normal <5.0 [facility] Comment on above: Order Comment: FASTI NG Y Result Comment: PERF ORMED BY: [place] [address] PATHOLOGIST STAMP COLLECTOR RYAN ALMARAZ M.D. Performed By: #### R ENAL #### [address] Sodium [Moles/volume] in Ser um or PlasmaOrdered By: Salinas Ascencio on 09-29-2024 Sodium [Moles/Vol] 136 mmol/L Normal 136-145 [facility] Comment on above: Order Comment: FASTI NG Y Performed By: #### R ENAL #### [address] Triglyceride [Mass/volume] i n Serum or PlasmaOrdered By: Salinas Ascencio on 09-29-2024 Triglyceride [Mass/Vol] 273 mg/dL High 0-149 [facility] Comment on above: TRIG ATP III CLASSIF ICATIONTRIG less than 150 mg/dL NormalTRIG 150-199 mg/dL Borderline highTRIG 200-500 mg/dL High TRIG greater than 500 mg/dL Very highStandard traceable to the Center for Disease Conrtrol and Prevention (CDC) test method. Troponin I High Sensitivityo n 09-29-2024 Troponin I High Sensitivity 10 Normal 0-20 [facility] Comment on above: Result Comment: The Troponin units of report have been changed to meet the Chest Pain Accreditation requirement, element EC5.M1l2. Troponin units are changed from pg/ml to ng/L. Also, the decimal is removed and results are in whole numbers. PERFORMED BY: [place] [address] PATHOLOGIST STAMP COLLECTOR RYAN ALMARAZ M.D. Performed By: #### B MP, PT #### [address] Troponin I High Sensitivity 10 Normal 0-20 [facility] Comment on above: Result Comment: The Troponin units of report have been changed to meet the Chest Pain Accreditation requirement, element EC5.M1l2. Troponin units are changed from pg/ml to ng/L. Also, the decimal is removed and results are in whole numbers. PERFORMED BY: [place] [address] PATHOLOGIST STAMP COLLECTOR RYAN ALMARAZ M.D. Performed By: #### H S TROP ####[facility] Troponin I High Sensitivity 10 Normal 0-20 [facility] Comment on above: Result Comment: The Troponin units of report have been changed to meet the Chest Pain Accreditation requirement, element EC5.M1l2. Troponin units are changed from pg/ml to ng/L. Also, the decimal is removed and results are in whole numbers. PERFORMED BY: [place] [address] PATHOLOGIST STAMP COLLECTOR RYAN ALMARAZ M.D. Performed By: #### B MP, PT #### [address] Troponin I.cardiac [Mass/vol ume] in Serum or Plasma by Detection limit <= 0.01 ng/mLOrdered By: Salinas Ascencio on 09-29-2024 Troponin I.cardiac DL <= 0.01 ng/mL [Mass/Vol] 10 ng/L 0-20 [facility] Comment on above: The Troponin units o f report have been changed to meet the Chest Pain Accreditation requirement, element EC5.M1l2. Troponin units are changed from pg/ml to ng/L. Also, the decimal is removed and results are in whole numbers. Urea nitrogen [Mass/volume] in Serum or PlasmaOrdered By: Salinas Ascencio on 09-29-2024 Urea nitrogen [Mass/Vol] 20 mg/dL Normal 7-25 [facility] Comment on above: Order Comment: FASTI NG Y Performed By: #### R ENAL #### [address] aPTT in Platelet poor plasma by Coagulation assayOrdered By: Salinas Ascencio on 09-29-2024 aPTT Coag (PPP) [Time] 23.1 s Low 25.1-36.5 [facility] Comment on above: A hematocrit value g reater than 55% may lead to inaccurate results in coagulation testing. Patients having hematocrit values >55% require a special collection tube for coagulation studies. Please contact the laboratory at [phone] for redraw instructions. Basophils Auto (Bld) [#/Vol] Ordered By: Fang Zhu on 09-28-2024 Basophils (Bld) [#/Vol] 0.1 10 3/uL 0.0-0.1 [facility] Basophils/100 WBC Auto (Bld) Ordered By: Fang Zhu on 09-28-2024 Basophils/100 WBC (Bld) 0.4 % 0.2-2.0 [facility] Eosinophils/100 WBC Auto (Bl d)Ordered By: Fang Zhu on 09-28-2024 Eosinophils/100 WBC (Bld) 0.1 % Low 0.9-7.0 [facility] Erythrocyte distribution wid th Auto (RBC) [Ratio]Ordered By: Fang Zhu on 09-28-2024 Erythrocyte distribution width (RBC) [Ratio] 13.0 % 11.0-15.0 [facility] Estimated glomerular filtrat ion rate (GFR) non- AmericanOrdered By: Fang Zhu on 09-28-2024 GFR/1.73 sq M.predicted among non-blacks MDRD (S/P/Bld) [Vol rate/Area] 58 mL/min/{1.73_m2} Low >=60 mL/min/1.7 3m 2 [facility] Globulin Calc (S) [Mass/Vol] Ordered By: Fang Zhu on 09-28-2024 Globulin (S) [Mass/Vol] 3.9 g/dL [facility] Hematocrit Auto (Bld) [Volum e fraction]Ordered By: Fang Zhu on 09-28-2024 Hematocrit (Bld) [Volume fraction] 49.1 % 42.0-54.0 [facility] Hemoglobin [Mass/volume] in BloodOrdered By: Fang Zhu on 09-28-2024 Hemoglobin (Bld) [Mass/Vol] 17.1 g/dL 14.0-18.0 [facility] INR in Platelet poor plasma by Coagulation assayOrdered By: Fang Zhu on 09-28-2024 INR Coag (PPP) [Relative time] 1.09 {INR} [facility] Comment on above: DESIRED INR:2.0-3.0 CONDITIONS NOT LISTED BELOW2.5-3.5 FOR PROSTHETIC HEART VALVE REPLACEMENT2.5-3.5 RECURRENT THROMBOSIS Laboratory - Chemistry and C hemistry - challengeOrdered By: Fang Zhu on 09-28-2024 Albumin [Mass/Vol] 4.0 g/dL 3.4-5.0 [facility] ALP [Catalytic activity/Vol] 74 U/L 46-116 [facility] ALT [Catalytic activity/Vol] 53 U/L 16-63 [facility] AST [Catalytic activity/Vol] 28 U/L 15-37 [facility] Bilirubin [Mass/Vol] 1.5 mg/dL High 0.2-1.0 [facility] Calcium [Mass/Vol] 9.2 mg/dL 8.5-10.1 [facility] Chloride [Moles/Vol] 100 mmol/L 98-107 [facility] CO2 [Moles/Vol] 24.1 mmol/L 21.0-32.0 [facility] Creatinine [Mass/Vol] 1.25 mg/dL 0.70-1.30 [facility] GFR/1.73 sq M.predicted MDRD (S/P/Bld) [Vol rate/Area] mL/min/{1.73_m2} >=60 mL/min/1.7 3m 2 [facility] Glucose [Mass/Vol] 229 mg/dL High 74-106 [facility] Potassium [Moles/Vol] 4.0 mmol/L 3.5-5.1 [facility] Protein [Mass/Vol] 7.9 g/dL 6.4-8.2 [facility] Sodium [Moles/Vol] 137 mmol/L 136-145 [facility] Urea nitrogen [Mass/Vol] 30.0 mg/dL High 7.0-18.0 [facility] Urea nitrogen/Creatinine [Mass ratio] 24.0 mg/mg [facility] Laboratory - Hematology and Cell countsOrdered By: Fang Zhu on 09-28-2024 Immature granulocytes/100 WBC (Bld) 0.7 % High 0.0-0.5 [facility] Leukocytes [#/volume] correc collins for nucleated erythrocytes in Blood by Automated counOrdered By: Fang Zhu on 09-28-2024 WBC corrected for nucl RBC Auto (Bld) [#/Vol] 15.1 10 3/uL High 4.0-11.0 [facility] Lymphocytes Auto (Bld) [#/Vo l]Ordered By: Fang Zhu on 09-28-2024 Lymphocytes (Bld) [#/Vol] 1.7 10 3/uL 1.2-3.8 [facility] Lymphocytes/100 WBC Auto (Bl d)Ordered By: Fang Zhu on 09-28-2024 Lymphocytes/100 WBC (Bld) 11.0 % Low 20.5-60.0 [facility] MCH Auto (RBC) [Entitic mass ]Ordered By: Fang Zhu on 09-28-2024 MCH (RBC) [Entitic mass] 34.4 pg High 25.9-34.0 [facility] MCHC Auto (RBC) [Mass/Vol]Or dered By: Fang Zhu on 09-28-2024 MCHC (RBC) [Mass/Vol] 34.8 g/dL 29.9-35.2 [facility] MCV Auto (RBC) [Entitic vol] Ordered By: Fang Zhu on 09-28-2024 MCV (RBC) [Entitic vol] 98.8 fL High 80.0-94.0 [facility] Monocytes Auto (Bld) [#/Vol] Ordered By: Fang Zhu on 09-28-2024 Monocytes (Bld) [#/Vol] 0.5 10 3/uL 0.3-0.8 [facility] Monocytes/100 WBC Auto (Bld) Ordered By: Fang Zhu on 09-28-2024 Monocytes/100 WBC (Bld) 3.4 % 1.7-12.0 [facility] Neutrophils Auto (Bld) [#/Vo l]Ordered By: Fang Zhu on 09-28-2024 Neutrophils (Bld) [#/Vol] 12.8 10 3/uL High 1.4-6.5 [facility] Neutrophils/100 WBC Auto (Bl d)Ordered By: Fang Zhu on 09-28-2024 Neutrophils/100 WBC (Bld) 84.4 % High 43.0-75.0 [facility] No Panel InformationOrdered By: Fang Zhu on 09-28-2024 Troponin I High Sensitivity 9.5 pg/mL 4.0-76.1 [facility] Comment on above: CUT-OFF POINTS HAVE BEEN [...] Eosinophils # (Auto) 0.0 10 3/uL 0.0-0.7 [facility] Immature Granulocyte # (Auto) 0.11 10 3/uL High 0.00-0.03 [facility] Platelet mean volume Auto (B ld) [Entitic vol]Ordered By: Fang Zhu on 09-28-2024 Platelet mean volume (Bld) [Entitic vol] 11.0 fL 9.5-13.5 [facility] Platelets Auto (Bld) [#/Vol] Ordered By: Fang Zhu on 09-28-2024 Platelets (Bld) [#/Vol] 265 10 3/uL 150-450 [facility] Prothrombin time (PT)Ordered By: Fang Zhu on 09-28-2024 PT Coag (PPP) [Time] 11.5 s 9.0-11.6 [facility] RBC Auto (Bld) [#/Vol]Ordere d By: Fang Zhu on 09-28-2024 RBC (Bld) [#/Vol] 4.97 10 6/uL 4.70-6.10 [facility] Serum or plasma albumin/glob ulin mass ratioOrdered By: Fang Zhu on 09-28-2024 Albumin/Globulin [Mass ratio] 1.0 {ratio} [facility] Serum or plasma anion gap de terminationOrdered By: Fang Zhu on 09-28-2024 Anion gap [Moles/Vol] 16.9 mmol/L [facility] CNPNon 09-13-2024 CNPN Telephone ([employer]) ----- ESME STEVEN Chrissy ([id number]) 1960 M Date Time Provider Department 09/13/24 HELADIO PINEDA WAQARSil During your visit today, we recorded the following information about you: Heladio Pineda MD 09/13/2024 10:22 AM Signed Please call patient to schedule Nonfasting labs Follow up for osteoarthritis/PMR/gout in 6-12months Scott. Yannick Sykes 09/25/2024 3:47 PM Signed Patient is stating [...] Melany Pearson MA 09/26/2024 12:56 PM Signed LMTCDebra Huddleston, GEMINI 09/26/2024 3:36 PM Signed Pt returning call [...] Idiopathic chronic gout of multiple sites witho*01/05/2023 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 [Z79*01/05/2023 CHENCHO positive [R76.8] 01/05/2023 Bilateral hand swelling [M79.89] 01/05/2023 Chronic pain of both knees [M25.561, M25.562, G*03/05/2023 Leg weakness, bilateral [R29.898] 06/30/2024 Encounter Status:Closed by DEBRA LUNA on 09/26/[address] [facility] Carbon dioxide, total [Moles /volume] in Serum or PlasmaOrdered By: Antonio Steele on 09-09-2024 CO2 [Moles/Vol] Carbon dioxide, tota l [Moles/volume] in Serum or Plasma 21.0-31.0 [facility] CO2 [Moles/Vol] 26.3 mmol/L Normal 21.0-31.0 [facility] Comment on above: Performed By: #### B MP, PT #### [facility] [address] Chloride [Moles/volume] in S ursula or PlasmaOrdered By: Antonio Steele on 09-09-2024 Chloride [Moles/Vol] Chloride [Moles/vol ume] in Serum or Plasma Low 98-107 [facility] Chloride [Moles/Vol] 96 mmol/L Low 98-107 [facility] Comment on above: Performed By: #### B MP, PT #### [facility] [address] [place], [place] [id number] [facility] ECG 12 lead ECGon 09-09-2024 ECG 12 lead ECG [facility] [place] [address] Electrocardiograph Report Signed Patient: Esme Steven MR#: [id number] : 1960 Acct:[id number] Age/Sex: 63 / M ADM Date: 09/09/24 Loc: PO Room: Type: [facility] Attending Dr: Antonio Steele MD Ordering Provider: [...] is now present Confirmed by Will Koch ([id number]) on 09/09/2024 11:28:31 AM Referred By: Electronically Signed By: Will Koch Transcribed By: MUS Signed By Will Koch MD 09/09/24 1128 Normal [facility] ECG post procedureon 025 ECG post procedure [facility] [place] [address] Electrocardiograph Report Signed Patient: Esme Steven MR#: [id number] : 1960 Acct:[id number] Age/Sex: 63 / M ADM Date: 09/09/24 Loc: PO Room: Type: [facility] Attending Dr: Antonio Steele MD Ordering Provider: [...] in Lateral leads Confirmed by Ada Woodruff ([id number]) on 09/09/2024 5:08:22 PM Referred By: Electronically Signed By: Ada Woodruff Transcribed By: MUS Signed By Ada Woodruff MD 5 1708 Normal [facility] Potassium [Moles/volume] in Serum or PlasmaOrdered By: Antonio Steele on 09-09-2024 Potassium [Moles/Vol] Potassium [Moles/v olume] in Serum or Plasma 3.5-5.1 [facility] Potassium [Moles/Vol] 4.0 mmol/L Normal 3.5-5.1 [facility] Comment on above: Performed By: #### B MP, PT #### [facility] [address] [place] [address] Serum or plasma anion gap de terminationOrdered By: Antonio Steele on 09-09-2024 Anion gap [Moles/Vol] Serum or plasma an ion gap determination 6.0-15.0 [facility] Anion gap [Moles/Vol] 14.7 mmol/L Normal 6.0-15.0 [facility] Comment on above: Result Comment: PERF ORMED BY: [place] [address] PATHOLOGIST STAMP COLLECTOR RYAN ALMARAZ M.D. Performed By: #### B MP, PT #### [facility] [address] [place] [address] Sodium [Moles/volume] in Ser um or PlasmaOrdered By: Antonio Steele on 09-09-2024 Sodium [Moles/Vol] Sodium [Moles/volume ] in Serum or Plasma Low 136-145 [facility] Sodium [Moles/Vol] 133 mmol/L Low 136-145 [facility] Comment on above: Performed By: #### B MP, PT #### [facility] [address] [place] [id number] [facility] Tuyet 08-31-2024 CNPN Telephone ([employer]) ----- ESME STEVEN ([id number]) 1960 M Date Time Provider Department 08/31/24 HELADIO PINEDA During your visit today, we recorded the following information about you: Heladio Pineda MD 08/31/2024 1:10 PM Signed Please call patent To schedule nonfasting labs Active in 07/2024. Ok to complete at [facility] [place]. 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*01/05/2023 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 [Z79*01/05/2023 CHENCHO positive [R76.8] 01/05/2023 Bilateral hand swelling [M79.89] 01/05/2023 Chronic pain of both knees [M25.561, M25.562, G*03/05/2023 Leg weakness, bilateral [R29.898] 06/30/2024 Encounter Status:Closed by ILEANA GEORGE on 09/02/[address] [facility] ECG 12 Leadon 08-22-2024 Atrial fibrillation with controlled rate with old inferior ID [facility] Work Phone: [facility] Work Phone: Alanine aminotransferase [En zymatic activity/volume] in Serum or PlasmaOrdered By: Lydia Connelly on 08-13-2024 ALT [Catalytic activity/Vol] Alanine aminotransferase [Enzymatic activity/volume] in Serum or Plasma [address] ALT [Catalytic activity/Vol] 86 U/L [address] Comment on above: Performed By: #### M G, CBC, CMP ####[facility] [id number] [place] [id number] [facility] Albumin [Mass/volume] in Ser um or Plasma by Bromocresol green (BCG) dye binding methoOrdered By: Lydia Connelly on 08-13-2024 Albumin BCG dye [Mass/Vol] Albumin [Mass/volume] in Serum or Plasma by Bromocresol green (BCG) dye binding metho 3.5-5.7 [facility] Albumin BCG dye [Mass/Vol] 3.5 g/dL 3.5-5.7 [facility] Alkaline phosphatase [Enzyma tic activity/volume] in Serum or PlasmaOrdered By: Lydia Connelly on 08-13-2024 ALP [Catalytic activity/Vol] Alkaline phosphatase [Enzymatic activity/volume] in Serum or Plasma 34-104 [facility] ALP [Catalytic activity/Vol] 73 U/L Normal 34-104 [facility] Comment on above: Performed By: #### M G, CBC, CMP ####[place] [id number] [address] Aspartate aminotransferase [ Enzymatic activity/volume] in Serum or PlasmaOrdered By: Lydia Connelly on 08-13-2024 AST [Catalytic activity/Vol] Aspartate aminotransferase [Enzymatic activity/volume] in Serum or Plasma 1339 [facility] AST [Catalytic activity/Vol] 31 U/L Normal -39 [facility] Comment on above: Performed By: #### M G, CBC, CMP ####[place] [id number] Basophils Auto (Bld) [#/Vol] Ordered By: Lydia Connelly on 08-13-2024 Basophils (Bld) [#/Vol] Automated basophil count 0.0-0.2 [facility] Basophils [#/volume] in Bloo d by Automated countOrdered By: Lydia Connelly on 08-13-2024 Basophils (Bld) [#/Vol] 0.1 10*3/uL Normal 0.0-0.2 [facility] Comment on above: Result Comment: PERF ORMED BY: [facility] [address] [place] [address] PATHOLOGIST STAMP COLLECTOR OSCAR HAY M.D. Performed By: #### M G, CBC, CMP ####[address] Basophils/100 WBC Auto (Bld) Ordered By: Lydia Connelly on 08-13-2024 Basophils/100 WBC (Bld) Automated basophil % . [facility] Basophils/100 leukocytes in Blood by Automated countOrdered By: Lydia Connelly on 08-13-2024 Basophils/100 WBC (Bld) 0.8 % Normal . [facility] Comment on above: Performed By: #### M G, CBC, CMP ####[address] Bilirubin.total [Mass/volume ] in Serum or PlasmaOrdered By: Lydia Connelly on 08-13-2024 Bilirubin [Mass/Vol] Bilirubin.total [Mass/volume] in Serum or Plasma High 0.3-1.0 [facility] Comment on above: Samples from patient s who have taken Naproxen have shown spurious elevation in Total Bilirubin levels. A metabolite of Naproxen, O-desmethylnaproxen, has been shown to interfere with the Jendrassik-Grof method for measuring Total Bilirubin. Bilirubin [Mass/Vol] 1.4 mg/dL High 0.3-1.0 [facility] Comment on above: Samples from patient [...] Performed By: #### M G, CBC, CMP ####[facility] [id number] [address] Calcium [Mass/volume] in Ser um or PlasmaOrdered By: Lydia Connelly on 08-13-2024 Calcium [Mass/Vol] Calcium [Mass/volume ] in Serum or Plasma 8.6-10.3 [facility] Calcium [Mass/Vol] 8.9 mg/dL Normal 8.6-10.3 [facility] Comment on above: Performed By: #### M G, CBC, CMP ####[facility] [id number] [place] [address] [facility] Carbon dioxide, total [Moles /volume] in Serum or PlasmaOrdered By: Lydia Connelly on 08-13-2024 CO2 [Moles/Vol] Carbon dioxide, tota l [Moles/volume] in Serum or Plasma 21.0-31.0 [facility] CO2 [Moles/Vol] 25.4 mmol/L Normal 21.0-31.0 [facility] Comment on above: Performed By: #### M G, CBC, CMP ####[address] Chloride [Moles/volume] in S ursula or PlasmaOrdered By: Lydia Connelly on 08-13-2024 Chloride [Moles/Vol] Chloride [Moles/vol ume] in Serum or Plasma 98-107 [facility] Chloride [Moles/Vol] 102 mmol/L Normal 98-107 [facility] Comment on above: Performed By: #### M G, CBC, CMP ####[address] Complete Blood Count Auto Di ffon 08-13-2024 Mean Corpuscular HGB Conc 33.9 g/dL Normal 32.5-35.6 [facility] Comment on above: Performed By: #### M G, CBC, CMP ####[address] NRBC% 0.1 /100{WBC} Normal 0-0.5 [facility] Comment on above: Performed By: #### M G, CBC, CMP ####[address] Comprehensive Metabolic Pane jose 08-13-2024 Albumin [Mass/Vol] 3.5 g/dL Normal 3.5-5.7 [facility] Comment on above: Performed By: #### M G, CBC, CMP ####[address] Creatinine Clr Calc Pharmacy 119.44 Normal [facility] Comment on above: Performed By: #### M G, CBC, CMP ####[address] GFR/1.73 sq M.predicted MDRD (S/P/Bld) [Vol rate/Area] mL/min/{1.73_m2} Normal [facility] Comment on above: Performed By: #### M G, CBC, CMP ####[address] Creatinine [Mass/volume] in Serum or PlasmaOrdered By: Lydia Connelly on 08-13-2024 Creatinine [Mass/Vol] Creatinine [Mass/v olume] in Serum or Plasma 0.70-1.30 [facility] Creatinine [Mass/Vol] 0.76 mg/dL Normal 0.70-1.30 [facility] Comment on above: Performed By: #### M G, CBC, CMP ####[facility] [id number] Eosinophils Auto (Bld) [#/Vo l]Ordered By: Lydia Connelly on 08-13-2024 Eosinophils (Bld) [#/Vol] Automated eosinophil count 0.0-0.45 [facility] Eosinophils [#/volume] in Bl ood by Automated countOrdered By: Lydia Connelly on 08-13-2024 Eosinophils (Bld) [#/Vol] 0.1 10*3/uL Normal 0.0-0.45 [facility] Comment on above: Performed By: #### M G, CBC, CMP ####[facility] [id number] [place] [address] Eosinophils/100 WBC Auto (Bl d)Ordered By: Lydia Connelly on 08-13-2024 Eosinophils/100 WBC (Bld) Automated eosinophil % . [facility] Eosinophils/100 leukocytes i n Blood by Automated countOrdered By: Lydia Connelly on 08-13-2024 Eosinophils/100 WBC (Bld) 1.1 % Normal . [facility] Comment on above: Performed By: #### M G, CBC, CMP ####[facility] [id number] [address] Erythrocyte distribution wid th Auto (RBC) [Ratio]Ordered By: Lydia Connelly on 08-13-2024 Erythrocyte distribution width (RBC) [Ratio] Erythrocyte distribution width [Ratio] by Automated count 12.0-14.8 [facility] Erythrocyte distribution wid th [Ratio] by Automated countOrdered By: Lydia Connelly on 08-13-2024 Erythrocyte distribution width (RBC) [Ratio] 13.8 % Normal 12.0-14.8 [facility] Comment on above: Performed By: #### M G, CBC, CMP ####[facility] [id number] Erythrocytes [#/volume] in B lood by Automated countOrdered By: Lydia Connelly on 08-13-2024 RBC (Bld) [#/Vol] 4.79 10*6/uL Normal 3.90-5.60 [facility] Comment on above: Performed By: #### M G, CBC, CMP ####[facility] [id number] Globulin Calc (S) [Mass/Vol] Ordered By: Lydia Connelly on 08-13-2024 Globulin (S) [Mass/Vol] Serum globulin measurement by calculation (mass/volume) [facility] Glucose [Mass/volume] in Ser um or PlasmaOrdered By: Lydia Connelly on 08-13-2024 Glucose [Mass/Vol] Glucose [Mass/volume ] in Serum or Plasma High 70-100 [facility] Comment on above: ADA recommended refe rence rangeRandom Glucose Reference Range is dependent on time and content of last meal. Glucose of more than 200 mg/dL in a nonstressed, ambulatory subject supports the diagnosis of Diabetes Mellitus. Glucose [Mass/Vol] 148 mg/dL High 70-100 [facility] Comment on above: ADA recommended refe rence rangeRandom Glucose Reference Range is dependent on time and content of last meal. Glucose of more than 200 mg/dL in a nonstressed, ambulatory subject supports the diagnosis of Diabetes Mellitus. Result Comment: [facility] Glucose Reference Range is dependent on time and content of last meal. Glucose of more than 200 mg/dL in a nonstressed, ambulatory subject supports the diagnosis of Diabetes Mellitus. ADA recommended reference range Performed By: #### M G, CBC, CMP ####[facility] [id number] [address] Hematocrit Auto (Bld) [Volum e fraction]Ordered By: Lydia Connelly on 08-13-2024 Hematocrit (Bld) [Volume fraction] Hematocrit [Volume Fraction] of Blood by Automated count High 38.8-50.0 [facility] Hematocrit [Volume Fraction] of Blood by Automated countOrdered By: Lydia Connelly on 08-13-2024 Hematocrit (Bld) [Volume fraction] 50.5 % High 38.8-50.0 [facility] Comment on above: Performed By: #### M G, CBC, CMP ####[facility] [id number] Hemoglobin [Mass/volume] in BloodOrdered By: Lydia Connelly on 08-13-2024 Hemoglobin (Bld) [Mass/Vol] Hemoglobin [Mass/volume] in Blood High 13.0-17.0 [facility] Hemoglobin (Bld) [Mass/Vol] 17.1 g/dL High 13.0-17.0 [facility] Comment on above: Performed By: #### M G, CBC, CMP ####[facility] [id number] Leukocytes [#/volume] correc collins for nucleated erythrocytes in Blood by Automated counOrdered By: Lydia Connelly on 08-13-2024 WBC corrected for nucl RBC Auto (Bld) [#/Vol] Leukocytes [#/volume] corrected for nucleated erythrocytes in Blood by Automated coun 4.1-10.5 [facility] WBC corrected for nucl RBC Auto (Bld) [#/Vol] 9.6 10*3/uL 4.1-10.5 [facility] Leukocytes [#/volume] in Blo od by Automated countOrdered By: Lydia Connelly on 08-13-2024 WBC (Bld) [#/Vol] 9.6 10*3/uL Normal 4.1-10.5 [facility] Comment on above: Performed By: #### M G, CBC, CMP ####[facility] [id number] [address] Lymphocytes Auto (Bld) [#/Vo l]Ordered By: Lydia Connelly on 08-13-2024 Lymphocytes (Bld) [#/Vol] Lymphocytes [#/volume] in Blood by Automated count 1.00-4.8 [facility] Lymphocytes [#/volume] in Bl ood by Automated countOrdered By: Lydia Connelly on 08-13-2024 Lymphocytes (Bld) [#/Vol] 1.4 10*3/uL Normal 1.00-4.8 [facility] Comment on above: Performed By: #### M G, CBC, CMP ####[facility] [id number] [place] [address] Lymphocytes/100 WBC Auto (Bl d)Ordered By: Lydia Connelly on 08-13-2024 Lymphocytes/100 WBC (Bld) Lymphocytes/100 leukocytes in Blood by Automated count . [facility] Lymphocytes/100 leukocytes i n Blood by Automated countOrdered By: Lydia Connelly on 08-13-2024 Lymphocytes/100 WBC (Bld) 15.1 % Normal . [facility] Comment on above: Performed By: #### M G, CBC, CMP ####[facility] [id number] [place] [address] MCH Auto (RBC) [Entitic mass ]Ordered By: Lydia Connelly on 08-13-2024 MCH (RBC) [Entitic mass] MCH [Entitic mass] by Automated count High 27.5-35.2 [facility] MCH [Entitic mass] by Automa collins countOrdered By: Lydia Connelly on 08-13-2024 MCH (RBC) [Entitic mass] 35.8 pg High 27.5-35.2 [facility] Comment on above: Performed By: #### M G, CBC, CMP ####[facility] [id number] [place] [address] MCHC Auto (RBC) [Mass/Vol]Or dered By: Lydia Connelly on 08-13-2024 MCHC (RBC) [Mass/Vol] MCHC [Mass/volume] by Automated count 32.5-35.6 [facility] MCHC (RBC) [Mass/Vol] 33.9 g/dL 32.5-35.6 [facility] MCV Auto (RBC) [Entitic vol] Ordered By: Lydia Connelly on 08-13-2024 MCV (RBC) [Entitic vol] MCV [Entitic volume] by Automated count [place] [id number] [facility] MCV [Entitic volume] by Auto mated countOrdered By: Lydia Connelly on 08-13-2024 MCV (RBC) [Entitic vol] 105.5 fL [facility] 83.5-101 [facility] Comment on above: Performed By: #### M G, CBC, CMP ####[place] [id number] [place] [id number] [facility] Magnesium [Mass/volume] in S ursula or PlasmaOrdered By: Lydia Connelly on 08-13-2024 Magnesium [Mass/Vol] Magnesium [Mass/vol ume] in Serum or Plasma Low 1.9-2.7 [facility] Magnesium [Mass/Vol] 1.6 mg/dL Low 1.9-2.7 [facility] Comment on above: Result Comment: PERF ORMED BY: [facility] [address] [place] [id number] PATHOLOGIST STAMP COLLECTOR OSCAR HAY M.D. Performed By: #### M G, CBC, CMP ####[place] [id number] [facility] Monocytes Auto (Bld) [#/Vol] Ordered By: Lydia Connelly on 08-13-2024 Monocytes (Bld) [#/Vol] Automated blood monocyte count 0.0-0.8 [facility] Monocytes [#/volume] in Bloo d by Automated countOrdered By: Lydia Connelly on 08-13-2024 Monocytes (Bld) [#/Vol] 0.7 10*3/uL Normal 0.0-0.8 [facility] Comment on above: Performed By: #### M G, CBC, CMP ####[place] [id number] [facility] Monocytes/100 WBC Auto (Bld) Ordered By: Lydia Connelly on 08-13-2024 Monocytes/100 WBC (Bld) Automated monocyte % . [facility] Monocytes/100 leukocytes in Blood by Automated countOrdered By: Lydia Connelly on 08-13-2024 Monocytes/100 WBC (Bld) 7.6 % Normal . [facility] Comment on above: Performed By: #### M G, CBC, CMP ####[facility] [id number] [place] [id number] [facility] NM kacie perf SPECT rest stron 08-13-2024 NM kacie perf SPECT rest str [facility] [address] [place] [address] [place] [address] Nuclear Medicine Report Signed Patient: Esme Steven MR#: [id number] : 1960 Acct:[id number] Age/Sex: 63 / M ADM Date: 08/11/24 Loc: Room: [address] [place] [address] Type: ADM INOo Attending Dr: Lydia Connelly MD Copies to: Lala Arce MD, [facility] MD Lydia Guajardo MD Ordering Provider: Lala Arce MD, [facility] Date of Service: 08/12/24 NM/NM kacie [...] Woodruff M.D. 08/13/2024 1:02 PM Dictation Location: [place] [address] Transcribed By: GWEN 08/13/24 1302 Dictated By: Ada Woodruff MD 08/13/24 1258 Signed By: 08/13/24 1302 Normal [facility] Neutrophils Auto (Bld) [#/Vo l]Ordered By: Lydia Connelly on 08-13-2024 Neutrophils (Bld) [#/Vol] Neutrophils [#/volume] in Blood by Automated count 1.8-7.7 [facility] Neutrophils [#/volume] in Bl ood by Automated countOrdered By: Lydia Connelly on 08-13-2024 Neutrophils (Bld) [#/Vol] 7.2 10*3/uL Normal 1.8-7.7 [facility] Comment on above: Performed By: #### M G, CBC, CMP ####[facility] [id number] Neutrophils/100 WBC Auto (Bl d)Ordered By: Lydia Connelly on 08-13-2024 Neutrophils/100 WBC (Bld) Automated neutrophil % . [facility] Neutrophils/100 leukocytes i n Blood by Automated countOrdered By: Lydia Connelly on 08-13-2024 Neutrophils/100 WBC (Bld) 75.4 % Normal . [facility] Comment on above: Performed By: #### M G, CBC, CMP ####[facility] [id number] No Panel InformationOrdered By: Lydia Connelly on 08-13-2024 Estimated GFR (CKD-EPI) > 60.0 mL/Min [facility] Creatinine Clearance (Chem 119.44 [facility] Nucleated erythrocytes [Pres ence] in Blood by Automated countOrdered By: Lydia Connelly on 08-13-2024 Nucleated RBC Auto Ql (Bld) Nucleated erythrocytes [Presence] in Blood by Automated count 0-0.5 [facility] Nucleated RBC Auto Ql (Bld) 0.1 /100{WBC} 0-0.5 [facility] Platelet mean volume Auto (B ld) [Entitic vol]Ordered By: Lydia Connelly on 08-13-2024 Platelet mean volume (Bld) [Entitic vol] Platelet mean volume [Entitic volume] in Blood by Automated count 6.6-10.1 [facility] Platelet mean volume [Entiti c volume] in Blood by Automated countOrdered By: Lydia Connelly on 08-13-2024 Platelet mean volume (Bld) [Entitic vol] 9.1 fL Normal 6.6-10.1 [facility] Comment on above: Performed By: #### M G, CBC, CMP ####[facility] [id number] [place] [address] [facility] Platelets Auto (Bld) [#/Vol] Ordered By: Lydia Connelly on 08-13-2024 Platelets (Bld) [#/Vol] Platelets [#/volume] in Blood by Automated count 150-450 [facility] Platelets [#/volume] in Bloo d by Automated countOrdered By: Lydia Connelly on 08-13-2024 Platelets (Bld) [#/Vol] 160 10*3/uL Normal 150-450 [facility] Comment on above: Performed By: #### M Pal, CBC, CMP ####[place] [id number] [facility] Potassium [Moles/volume] in Serum or PlasmaOrdered By: Lydia Connelly on 08-13-2024 Potassium [Moles/Vol] Potassium [Moles/v olume] in Serum or Plasma 3.5-5.1 [facility] Comment on above: Hemolysis is present at a level that could interfere with the result.Contact lab if redraw is required Potassium [Moles/Vol] 3.9 mmol/L Normal 3.5-5.1 [facility] Comment on above: Hemolysis is present at a level that could interfere with the result.Contact lab if redraw is required Result Comment: Hemo lysis is present at a level that could interfere with the result. Contact lab if redraw is required Performed By: #### M G, CBC, CMP ####[place] [id number] [facility] Protein [Mass/volume] in Ser um or PlasmaOrdered By: Lydia Connelly on 08-13-2024 Protein [Mass/Vol] Protein [Mass/volume ] in Serum or Plasma Low 6.4-8.9 [facility] Protein [Mass/Vol] 6.1 g/dL Low 6.4-8.9 [facility] Comment on above: Performed By: #### M G, CBC, CMP ####[facility] [id number] RBC Auto (Bld) [#/Vol]Ordere d By: Lydia Connelly on 08-13-2024 RBC (Bld) [#/Vol] Erythrocytes [#/volu me] in Blood by Automated count 3.90-5.60 [facility] Serum globulin measurement b y calculation (mass/volume)Ordered By: Lydia Connelly on 08-13-2024 Globulin (S) [Mass/Vol] 2.6 g/dL Normal [facility] Comment on above: Performed By: #### M G, CBC, CMP ####[facility] [id number] Serum or plasma albumin/glob ulin mass ratioOrdered By: Lydia Connelly on 08-13-2024 Albumin/Globulin [Mass ratio] Serum or plasma albumin/globulin mass ratio [facility] Albumin/Globulin [Mass ratio] 1.3 {ratio} Normal [facility] Comment on above: Performed By: #### M G, CBC, CMP ####[facility] [id number] [address] Serum or plasma anion gap de terminationOrdered By: Lydia Connelly on 08-13-2024 Anion gap [Moles/Vol] Serum or plasma an ion gap determination 6.0-15.0 [facility] Anion gap [Moles/Vol] 11.5 mmol/L Normal 6.0-15.0 [facility] Comment on above: Performed By: #### M G, CBC, CMP ####[facility] [id number] Sodium [Moles/volume] in Ser um or PlasmaOrdered By: Lydia Connelly on 08-13-2024 Sodium [Moles/Vol] Sodium [Moles/volume ] in Serum or Plasma Low 136-145 [facility] Sodium [Moles/Vol] 135 mmol/L Low 136-145 [facility] Comment on above: Performed By: #### M G, CBC, CMP ####[place] [id number] [place] [id number] [facility] Urea nitrogen [Mass/volume] in Serum or PlasmaOrdered By: Lydia Connelly on 08-13-2024 Urea nitrogen [Mass/Vol] Urea nitrogen [Mass/volume] in Serum or Plasma 10-31 [facility] Urea nitrogen [Mass/Vol] 19 mg/dL Normal 10-31 [facility] Comment on above: Performed By: #### M G, CBC, CMP ####[facility] [id number] [place] [address] [facility] WBC Auto (Bld) [#/Vol]Ordere d By: Lydia Connelly on 08-13-2024 WBC (Bld) [#/Vol] Leukocytes [#/volume ] in Blood by Automated count 4.1-10.5 [facility] A1C with Estimated Average G luon 08-12-2024 Glucose [Mass/Vol] 174 mg/dL Normal [facility] Comment on above: Result Comment: PERF ORMED BY: [facility] [address] [place] [address] PATHOLOGIST STAMP COLLECTOR OSCAR HAY M.D. Performed By: #### C MP, A1C WTH eA, CBC, LIPID, MG ####[facility] [id number] [place] [id number] [facility] Blood estimated average gluc ose determination by estimation from glycated hemoglobinOrdered By: Lydia Connelly on 08-12-2024 Average glucose Estimated from glycated hemoglobin (Bld) [Mass/Vol] Glucose mean value [Mass/volume] in Blood Estimated from glycated hemoglobin [facility] Average glucose Estimated from glycated hemoglobin (Bld) [Mass/Vol] 174 mg/dL [facility] Cholesterol [Mass/volume] in Serum or PlasmaOrdered By: Lydia Connelly on 08-12-2024 Cholesterol [Mass/Vol] Cholesterol [Mass /volume] in Serum or Plasma 140-200 [facility] Comment on above: Chol less than 200 m g/dl low riskChol 201-239 mg/dl borderline riskChol 240 mg/dl and greater high risk Cholesterol [Mass/Vol] 167 mg/dL Normal 140-200 [facility] Comment on above: Chol less than 200 m g/dl low riskChol 201-239 mg/dl borderline riskChol 240 mg/dl and greater high risk Result Comment: Chol less than 200 mg/dl low risk Chol 201-239 mg/dl borderline risk Chol 240 mg/dl and greater high risk Performed By: #### C MP, A1C WTH eA, CBC, LIPID, MG ####[facility] [id number] [place] [address] [facility] Cholesterol in HDL [Mass/vol ume] in Serum or PlasmaOrdered By: Lydia Connelly on 08-12-2024 Cholesterol in HDL [Mass/Vol] Serum or plasma high density lipoprotein (HDL) cholesterol measurement [facility] Comment on above: HDL CHOL ATP-III CLA SSIFICATION Cardiovascular RiskHDL > or equal to 60 mg/dL LOWHDL < 40 mg/dL HIGH Cholesterol in HDL [Mass/Vol] 45 mg/dL Normal [facility] Comment on above: HDL CHOL ATP-III CLA SSIFICATION Cardiovascular RiskHDL > or equal to 60 mg/dL LOWHDL < 40 mg/dL HIGH Result Comment: HDL CHOL ATP-III CLASSIFICATION Cardiovascular Risk HDL > or equal to 60 mg/dL LOW HDL < 40 mg/dL HIGH Performed By: #### C MP, A1C WTH eA, CBC, LIPID, MG ####[facility] [id number] [place] [address] [place] Cholesterol in LDL Calc [Mas s/Vol]Ordered By: Lydia Connelly on 08-12-2024 Cholesterol in LDL [Mass/Vol] Cholesterol in LDL [Mass/volume] in Serum or Plasma by calculation 0-100 [facility] Comment on above: LDL ATP III CLASSIFI CATIONLDL less than 100 mg/dL OptimalLDL 100-129 mg/dL Near or above optimalLDL 130-159 mg/dL Borderline highLDL 160-189 mg/dL HighLDL greater than 189 mg/dL Very high Cholesterol in LDL [Mass/Vol] 86 mg/dL 0-100 [facility] Comment on above: LDL ATP III CLASSIFI CATIONLDL less than 100 mg/dL OptimalLDL 100-129 mg/dL Near or above optimalLDL 130-159 mg/dL Borderline highLDL 160-189 mg/dL HighLDL greater than 189 mg/dL Very high Cholesterol in VLDL Calc [Ma ss/Vol]Ordered By: Lydia Connelly on 08-12-2024 Cholesterol in VLDL [Mass/Vol] Cholesterol in VLDL [Mass/volume] in Serum or Plasma by calculation [facility] Cholesterol in VLDL [Mass/Vol] 35 mg/dL [facility] Complete Blood Count Auto Di ffon 08-12-2024 Basophils (Bld) [#/Vol] 0.1 10*3/uL Normal 0.0-0.2 [facility] Comment on above: Result Comment: PERF ORMED BY: [facility] [address] [place] [address] PATHOLOGIST STAMP COLLECTOR OSCAR HAY M.D. Performed By: #### C MP, A1C WTH eA, CBC, LIPID, MG ####[address] Basophils/100 WBC (Bld) 0.8 % Normal . [facility] Comment on above: Performed By: #### C MP, A1C WTH eA, CBC, LIPID, MG ####[address] Eosinophils (Bld) [#/Vol] 0.1 10*3/uL Normal 0.0-0.45 [facility] Comment on above: Performed By: #### C MP, A1C WTH eA, CBC, LIPID, MG ####[address] Eosinophils/100 WBC (Bld) 0.7 % Normal . [facility] Comment on above: Performed By: #### C MP, A1C WTH eA, CBC, LIPID, MG ####[address] Erythrocyte distribution width (RBC) [Ratio] 13.7 % Normal 12.0-14.8 [facility] Comment on above: Performed By: #### C MP, A1C WTH eA, CBC, LIPID, MG ####[address] Hematocrit (Bld) [Volume fraction] 50.3 % High 38.8-50.0 [facility] Comment on above: Performed By: #### C MP, A1C WTH eA, CBC, LIPID, MG ####[address] Hemoglobin (Bld) [Mass/Vol] 17.3 g/dL High 13.0-17.0 [facility] Comment on above: Performed By: #### C MP, A1C WTH eA, CBC, LIPID, MG ####[address] Lymphocytes (Bld) [#/Vol] 1.5 10*3/uL Normal 1.00-4.8 [facility] Comment on above: Performed By: #### C MP, A1C WTH eA, CBC, LIPID, MG ####[address] Lymphocytes/100 WBC (Bld) 14.1 % Normal . [facility] Comment on above: Performed By: #### C MP, A1C WTH eA, CBC, LIPID, MG ####[address] MCH (RBC) [Entitic mass] 35.7 pg High 27.5-35.2 [facility] Comment on above: Performed By: #### C MP, A1C WTH eA, CBC, LIPID, MG ####[address] MCV (RBC) [Entitic vol] 103.6 fL High 83.5-101 [facility] Comment on above: Performed By: #### C MP, A1C WTH eA, CBC, LIPID, MG ####[address] Mean Corpuscular HGB Conc 34.5 g/dL Normal 32.5-35.6 [facility] Comment on above: Performed By: #### C MP, A1C WTH eA, CBC, LIPID, MG ####[place] [address] Monocytes (Bld) [#/Vol] 0.5 10*3/uL Normal 0.0-0.8 [facility] Comment on above: Performed By: #### C MP, A1C WTH eA, CBC, LIPID, MG ####[address] Monocytes/100 WBC (Bld) 5.0 % Normal . [facility] Comment on above: Performed By: #### C MP, A1C WTH eA, CBC, LIPID, MG ####[address] Neutrophils (Bld) [#/Vol] 8.2 10*3/uL High 1.8-7.7 [facility] Comment on above: Performed By: #### C MP, A1C WTH eA, CBC, LIPID, MG ####[address] Neutrophils/100 WBC (Bld) 79.4 % Normal . [facility] Comment on above: Performed By: #### C MP, A1C WTH eA, CBC, LIPID, MG ####[address] NRBC% 0.1 /100{WBC} Normal 0-0.5 [facility] Comment on above: Performed By: #### C MP, A1C WTH eA, CBC, LIPID, MG ####[address] Platelet mean volume (Bld) [Entitic vol] 9.1 fL Normal 6.6-10.1 [facility] Comment on above: Performed By: #### C MP, A1C WTH eA, CBC, LIPID, MG ####[address] Platelets (Bld) [#/Vol] 169 10*3/uL Normal 150-450 [facility] Comment on above: Performed By: #### C MP, A1C WTH eA, CBC, LIPID, MG ####[place] [address] [place] [id number] [facility] RBC (Bld) [#/Vol] 4.86 10*6/uL Normal 3.90-5.60 [facility] Comment on above: Performed By: #### C MP, A1C WTH eA, CBC, LIPID, MG ####[place] [address] [place] [id number] [facility] WBC (Bld) [#/Vol] 10.3 10*3/uL Normal 4.1-10.5 [facility] Comment on above: Performed By: #### C MP, A1C WTH eA, CBC, LIPID, MG ####[place] [id number] [facility] Comprehensive Metabolic Pane jose 08-12-2024 Albumin [Mass/Vol] 3.9 g/dL Normal 3.5-5.7 [facility] Comment on above: Performed By: #### C MP, A1C WTH eA, CBC, LIPID, MG ####[address] Albumin/Globulin [Mass ratio] 1.3 {ratio} Normal [facility] Comment on above: Performed By: #### C MP, A1C WTH eA, CBC, LIPID, MG ####[place] [id number] [facility] ALP [Catalytic activity/Vol] 84 U/L Normal 34-104 [facility] Comment on above: Performed By: #### C MP, A1C WTH eA, CBC, LIPID, MG ####[place] [id number] [facility] ALT [Catalytic activity/Vol] 112 U/L High 7-52 [facility] Comment on above: Performed By: #### C MP, A1C WTH eA, CBC, LIPID, MG ####[place] [id number] [facility] Anion gap [Moles/Vol] 12.1 mmol/L Normal 6.0-15.0 [facility] Comment on above: Performed By: #### C MP, A1C WTH eA, CBC, LIPID, MG ####[place] [address] [place] [id number] [facility] AST [Catalytic activity/Vol] 22 U/L Normal 13-39 [facility] Comment on above: Performed By: #### C MP, A1C WTH eA, CBC, LIPID, MG ####[place] [address] [place] [id number] [facility] Bilirubin [Mass/Vol] 1.6 mg/dL High 0.3-1.0 [facility] Comment on above: Result Comment: Samp les from patients who have taken Naproxen have shown spurious elevation in Total Bilirubin levels. A metabolite of Naproxen, O-desmethylnaproxen, has been shown to interfere with the Jendrjose ramonik-Grof method for measuring Total Bilirubin. Performed By: #### C MP, A1C WTH eA, CBC, LIPID, MG ####[place] [id number] [facility] Calcium [Mass/Vol] 9.6 mg/dL Normal 8.6-10.3 [facility] Comment on above: Performed By: #### C MP, A1C WTH eA, CBC, LIPID, MG ####[place] [id number] [facility] Chloride [Moles/Vol] 99 mmol/L Normal 98-107 [facility] Comment on above: Performed By: #### C MP, A1C WTH eA, CBC, LIPID, MG ####[place] [id number] [facility] CO2 [Moles/Vol] 27.7 mmol/L Normal 21.0-31.0 [facility] Comment on above: Performed By: #### C MP, A1C WTH eA, CBC, LIPID, MG ####[place] [id number] [facility] Creatinine [Mass/Vol] 0.80 mg/dL Normal 0.70-1.30 [facility] Comment on above: Performed By: #### C MP, A1C WTH eA, CBC, LIPID, MG ####[address] [place] [address] [place] Creatinine Clr Calc Pharmacy 97.08 Normal [facility] Comment on above: Performed By: #### C MP, A1C WTH eA, CBC, LIPID, MG ####[place] [address] [place] [id number] [facility] GFR/1.73 sq M.predicted MDRD (S/P/Bld) [Vol rate/Area] mL/min/{1.73_m2} Normal [facility] Comment on above: Performed By: #### C MP, A1C WTH eA, CBC, LIPID, MG ####[place] [address] Globulin (S) [Mass/Vol] 2.9 g/dL Normal [facility] Comment on above: Performed By: #### C MP, A1C WTH eA, CBC, LIPID, MG ####[address] Glucose [Mass/Vol] 153 mg/dL High 70-100 [facility] Comment on above: Result Comment: [facility] Glucose Reference Range is dependent on time and content of last meal. Glucose of more than 200 mg/dL in a nonstressed, ambulatory subject supports the diagnosis of Diabetes Mellitus. ADA recommended reference range Performed By: #### C MP, A1C WTH eA, CBC, LIPID, MG ####[address] Potassium [Moles/Vol] 3.8 mmol/L Normal 3.5-5.1 [facility] Comment on above: Performed By: #### C MP, A1C WTH eA, CBC, LIPID, MG ####[address] Protein [Mass/Vol] 6.8 g/dL Normal 6.4-8.9 [facility] Comment on above: Performed By: #### C MP, A1C WTH eA, CBC, LIPID, MG ####[address] Sodium [Moles/Vol] 135 mmol/L Low 136-145 [facility] Comment on above: Performed By: #### C MP, A1C WTH eA, CBC, LIPID, MG ####[place] [address] Urea nitrogen [Mass/Vol] 13 mg/dL Normal 7-25 [facility] Comment on above: Performed By: #### C MP, A1C WTH eA, CBC, LIPID, MG ####[place] [address] Hemoglobin A1c/Hemoglobin.to nahid in BloodOrdered By: Lydia Connelly on 08-12-2024 HbA1c (Bld) [Mass fraction] Hemoglobin A1c percentage High 4.3-5.6 [facility] Comment on above: Increased risk for d iabetes: 5.7 - 6.4diabetes: >6.4glycemic control for adults with diabetes: <7.0 HbA1c (Bld) [Mass fraction] 7.7 % High 4.3-5.6 [facility] Comment on above: Increased risk for d iabetes: 5.7 - 6.4diabetes: >6.4glycemic control for adults with diabetes: <7.0 Result Comment: Incr eased risk for diabetes: 5.7 - 6.4 diabetes: >6.4 glycemic control for adults with diabetes: <7.0 Performed By: #### C MP, A1C WTH eA, CBC, LIPID, MG ####[place] [address] Lipid Panelon 08-12-2024 LDL Cholesterol,Calculated 86 mg/dL Normal 0-100 [facility] Comment on above: Result Comment: LDL ATP III CLASSIFICATION LDL less than 100 mg/dL Optimal LDL 100-129 mg/dL Near or above optimal LDL 130-159 mg/dL Borderline high LDL 160-189 mg/dL High LDL greater than 189 mg/dL Very high Performed By: #### C MP, A1C WTH eA, CBC, LIPID, MG ####[place] [address] Triglyceride w/Reflex 179 mg/dL High 0-149 [facility] Comment on above: Result Comment: TRIG ATP III CLASSIFICATION TRIG less than 150 mg/dL Normal TRIG 150-199 mg/dL Borderline high TRIG 200-500 mg/dL High TRIG greater than 500 mg/dL Very high Standard traceable to the Center for Disease Conrtrol and Prevention (CDC) test method. Performed By: #### C MP, A1C WTH eA, CBC, LIPID, MG ####[place] [address] VLDL CHOLESTEROL 35 mg/dL Normal [facility] Comment on above: Performed By: #### C MP, A1C WTH eA, CBC, LIPID, MG ####[place] [address] [place] [id number] [facility] Magnesiumon 08-12-2024 Magnesium [Mass/Vol] 1.5 mg/dL Low 1.9-2.7 [facility] Comment on above: Performed By: #### C MP, A1C WTH eA, CBC, LIPID, MG ####[place] [address] Serum or plasma total choles terol/high density lipoprotein (HDL) cholesterol mass ratOrdered By: Lydia Connelly on 08-12-2024 Cholesterol.total/Chol esterol in HDL [Mass ratio] Serum or plasma total cholesterol/high density lipoprotein (HDL) cholesterol mass rat <5.0 [facility] Cholesterol.total/Chol esterol in HDL [Mass ratio] 3.7 {ratio} Normal <5.0 [facility] Comment on above: Result Comment: PERF ORMED BY: [facility] [address] [place] [address] PATHOLOGIST STAMP COLLECTOR OSCAR HAY M.D. Performed By: #### C MP, A1C WTH eA, CBC, LIPID, MG ####[place] [id number] [address] Triglyceride [Mass/volume] i n Serum or PlasmaOrdered By: Lydia Connelly on 08-12-2024 Triglyceride [Mass/Vol] Triglyceride [Mass/volume] in Serum or Plasma High 0-149 [facility] Comment on above: TRIG ATP III CLASSIF ICATIONTRIG less than 150 mg/dL NormalTRIG 150-199 mg/dL Borderline highTRIG 200-500 mg/dL High TRIG greater than 500 mg/dL Very highStandard traceable to the Center for Disease Conrtrol and Prevention (CDC) test method. Triglyceride [Mass/Vol] 179 mg/dL High 0-149 [facility] Comment on above: TRIG ATP III CLASSIF ICATIONTRIG less than 150 mg/dL NormalTRIG 150-199 mg/dL Borderline highTRIG 200-500 mg/dL High TRIG greater than 500 mg/dL Very highStandard traceable to the Center for Disease Conrtrol and Prevention (CDC) test method. Troponin I High Sensitivityo n 08-12-2024 Troponin I High Sensitivity 17 Normal 0-20 [facility] Comment on above: Result Comment: The Troponin units of report have been changed to meet the Chest Pain Accreditation requirement, element EC5.M1l2. Troponin units are changed from pg/ml to ng/L. Also, the decimal is removed and results are in whole numbers. PERFORMED BY: [facility] [address] [place] [address] PATHOLOGIST STAMP COLLECTOR OSCAR HAY M.D. Performed By: #### H S TROP ####[facility] [id number] Troponin I.cardiac [Mass/vol ume] in Serum or Plasma by Detection limit <= 0.01 ng/Ordered By: Lydia Connelly on 08-12-2024 Troponin I.cardiac DL <= 0.01 ng/mL [Mass/Vol] Troponin I.cardiac [Mass/volume] in Serum or Plasma by Detection limit <= 0.01 ng/ 0-20 [facility] Comment on above: The Troponin units [...] DL <= 0.01 ng/mL [Mass/Vol] 17 ng/L 0-20 [facility] Comment on above: The Troponin units o f report have been changed to meet the Chest Pain Accreditation requirement, element EC5.M1l2. Troponin units are changed from pg/ml to ng/L. Also, the decimal is removed and results are in whole numbers. US venous duplex LE BIon US venous duplex LE BI [facility] Main [address] [address] Ultrasound Report Signed Patient: Esme Steven MR#: [id number] : 1960 Acct:[id number] Age/Sex: 63 / M ADM Date: 08/11/24 Loc: Room: [address] [place] [address] Type: ADM INOo Attending Dr: Lydia Connelly [...] Hannah M.D. 08/12/2024 3:12 PM Dictation Location: [place] [address] Tech: Serena [facility] Transcribed By: GWEN 08/12/241511 Dictated By: Matt Hannah MD 08/12/241511 Signed By: 08/12/24 151 Normal [facility] BNP ser/plasOrdered By: Kristel Grande on 08-11-2024 Natriuretic peptide B (Bld) [Mass/Vol] 514.0 pg/mL High 5-100 [facility] Comment on above: Result Comment: PERF ORMED BY: [place] [id number] PATHOLOGIST STAMP COLLECTOR OSCAR HAY M.D. Performed By: #### B MP, PT #### [address] Basic Metabolic Panelon 05-0 Anion gap [Moles/Vol] 11.8 mmol/L Normal 6.0-15.0 [facility] Comment on above: Performed By: #### B MP, PT #### [address] Calcium [Mass/Vol] 9.1 mg/dL Normal 8.6-10.3 [facility] Comment on above: Performed By: #### B MP, PT #### [address] Chloride [Moles/Vol] 100 mmol/L Normal 98-107 [facility] Comment on above: Performed By: #### B MP, PT #### [address] CO2 [Moles/Vol] 26.2 mmol/L Normal 21.0-31.0 [facility] Comment on above: Performed By: #### B MP, PT #### [address] Creatinine [Mass/Vol] 0.74 mg/dL Normal 0.70-1.30 [facility] Comment on above: Performed By: #### B MP, PT #### [place] [address] [place] Creatinine Clr Calc Pharmacy 124.04 Normal [facility] Comment on above: Result Comment: PERF ORMED BY: [place] [address] PATHOLOGIST STAMP COLLECTOR OSCAR HAY M.D. Performed By: #### B MP, PT #### [place] [address] [place] GFR/1.73 sq M.predicted MDRD (S/P/Bld) [Vol rate/Area] mL/min/{1.73_m2} Normal [facility] Comment on above: Performed By: #### B MP, PT #### [facility] [address] Glucose [Mass/Vol] 164 mg/dL High 70-100 [facility] Comment on above: Result Comment: [facility] Glucose Reference Range is dependent on time and content of last meal. Glucose of more than 200 mg/dL in a nonstressed, ambulatory subject supports the diagnosis of Diabetes Mellitus. ADA recommended reference range Performed By: #### B MP, PT #### [facility] [address] Potassium [Moles/Vol] 4.0 mmol/L Normal 3.5-5.1 [facility] Comment on above: Result Comment: Hemo lysis is present at a level that could interfere with the result. Contact lab if redraw is required Performed By: #### B MP, PT #### [facility] [address] Sodium [Moles/Vol] 134 mmol/L Low 136-145 [facility] Comment on above: Performed By: #### B MP, PT #### [facility] [address] Urea nitrogen [Mass/Vol] 12 mg/dL Normal 7-25 [facility] Comment on above: Performed By: #### B MP, PT #### [facility] [address] [place] [address] [place] Basophils Auto (Bld) [#/Vol] Ordered By: Winnie Grande on 08-11-2024 Basophils (Bld) [#/Vol] Automated basophil count 0.0-0.2 [facility] Basophils/100 WBC Auto (Bld) Ordered By: Winnie Grande on 08-11-2024 Basophils/100 WBC (Bld) Automated basophil % . [facility] Calcium [Mass/volume] in Ser um or PlasmaOrdered By: Winnie Grande on 08-11-2024 Calcium [Mass/Vol] Calcium [Mass/volume ] in Serum or Plasma 8.6-10.3 [facility] Carbon dioxide, total [Moles /volume] in Serum or PlasmaOrdered By: Winnie Grande on 08-11-2024 CO2 [Moles/Vol] Carbon dioxide, tota l [Moles/volume] in Serum or Plasma 21.0-31.0 [facility] Chloride [Moles/volume] in S ursula or PlasmaOrdered By: Winnie Grande on 08-11-2024 Chloride [Moles/Vol] Chloride [Moles/vol ume] in Serum or Plasma 98-107 [facility] Complete Blood Count Auto Di ffon 08-11-2024 Basophils (Bld) [#/Vol] 0.0 10*3/uL Normal 0.0-0.2 [facility] Comment on above: Result Comment: PERF ORMED BY: [place] [address] PATHOLOGIST STAMP COLLECTOR OSCAR HAY M.D. Performed By: #### B MP, PT #### [address] Basophils/100 WBC (Bld) 0.1 % Normal . [facility] Comment on above: Performed By: #### B MP, PT #### [address] Eosinophils (Bld) [#/Vol] 0.0 10*3/uL Normal 0.0-0.45 [facility] Comment on above: Performed By: #### B MP, PT #### [address] Eosinophils/100 WBC (Bld) 0.3 % Normal . [facility] Comment on above: Performed By: #### B MP, PT #### [address] Erythrocyte distribution width (RBC) [Ratio] 13.8 % Normal 12.0-14.8 [facility] Comment on above: Performed By: #### B MP, PT #### [address] Hematocrit (Bld) [Volume fraction] 45.5 % Normal 38.8-50.0 [facility] Comment on above: Performed By: #### B MP, PT #### [facility] [address] Hemoglobin (Bld) [Mass/Vol] 15.5 g/dL Normal 13.0-17.0 [facility] Comment on above: Performed By: #### B MP, PT #### [facility] [address] Lymphocytes (Bld) [#/Vol] 0.9 10*3/uL Low 1.00-4.8 [facility] Comment on above: Performed By: #### B MP, PT #### [facility] [address] Lymphocytes/100 WBC (Bld) 6.3 % Normal . [facility] Comment on above: Performed By: #### B MP, PT #### [address] MCH (RBC) [Entitic mass] 35.4 pg High 27.5-35.2 [facility] Comment on above: Performed By: #### B MP, PT #### [address] MCV (RBC) [Entitic vol] 104.0 fL High 83.5-101 [facility] Comment on above: Performed By: #### B MP, PT #### [facility] [address] Mean Corpuscular HGB Conc 34.1 g/dL Normal 32.5-35.6 [facility] Comment on above: Performed By: #### B MP, PT #### [facility] [address] [place] [address] [place] Monocytes (Bld) [#/Vol] 0.8 10*3/uL Normal 0.0-0.8 [facility] Comment on above: Performed By: #### B MP, PT #### [facility] [address] Monocytes/100 WBC (Bld) 19.81 % Normal 0.00-20.00 [facility] Comment on above: Performed By: #### B MP, PT #### [facility] [address] [place] [address] [place] Monocytes/100 WBC (Bld) 5.5 % Normal . [facility] Comment on above: Performed By: #### B MP, PT #### [facility] [address] Neutrophils (Bld) [#/Vol] 12.0 10*3/uL High 1.8-7.7 [facility] Comment on above: Performed By: #### B MP, PT #### [facility] [address] Neutrophils/100 WBC (Bld) 87.8 % Normal . [facility] Comment on above: Performed By: #### B MP, PT #### [address] NRBC% 0.1 /100{WBC} Normal 0-0.5 [facility] Comment on above: Performed By: #### B MP, PT #### [address] Platelet mean volume (Bld) [Entitic vol] 8.9 fL Normal 6.6-10.1 [facility] Comment on above: Performed By: #### B MP, PT #### [place] [id number] [place] Platelets (Bld) [#/Vol] 146 10*3/uL Low 150-450 [facility] Comment on above: Performed By: #### B MP, PT #### [place] [id number] [place] RBC (Bld) [#/Vol] 4.38 10*6/uL Normal 3.90-5.60 [facility] Comment on above: Performed By: #### B MP, PT #### [address] WBC (Bld) [#/Vol] 13.6 10*3/uL High 4.1-10.5 [facility] Comment on above: Performed By: #### B MP, PT #### [facility] [address] [place] [address] [place] Creatine kinase [Enzymatic a ctivity/volume] in Serum or PlasmaOrdered By: Winnie Grande on 08-11-2024 CK [Catalytic activity/Vol] Creatine kinase [Enzymatic activity/volume] in Serum or Plasma Low 30-223 [facility] CK [Catalytic activity/Vol] 15 U/L Low 30-223 [facility] Comment on above: Performed By: #### B MP, PT #### [facility] [address] [place] [address] [place] Creatinine [Mass/volume] in Serum or PlasmaOrdered By: Winnie Grande on 08-11-2024 Creatinine [Mass/Vol] Creatinine [Mass/v olume] in Serum or Plasma 0.70-1.30 [facility] ECG 12 lead ECGon 08-11-2024 ECG 12 lead ECG [facility] Main [place] [address] [place] [address] Electrocardiograph Report Signed Patient: Esme Steven MR#: [id number] : 1960 Acct:[id number] Age/Sex: 63 / M ADM Date: 08/11/24 Loc: Room: [address] [place] [address] Type: ADM INOo Attending Dr: Lydia Connelly [...] By Winnie Grande DO 1948 Normal [facility] ECG 12 [place] [address] Electrocardiograph Report Signed Patient: Esme Steven MR#: [id number] : 1960 Acct:[id number] Age/Sex: 63 / M ADM Date: 08/11/24 Loc: Room: [address] [place] [address] Type: ADM INOo Attending Dr: Lydia Connelly [...] By Winnie Grande DO 1947 Normal [facility] ECH echo transthoracicon ECH echo transthoracic [place] [id number] Echocardiogram Signed Patient: Esme Steven MR#: [id number] : 1960 Acct:[id number] Age/Sex: 63 / M ADM Date: 08/11/24 Loc: 3T Room: [address] [place] [address] Type: ADM INOo Attending Dr: Lydia Connelly MD Ordering Provider: Lydia Connelly MD Date of Service: 08/11/2408/31/1330 ECH/ECH echo transthoracic: Chest Pain Copies to: MD Lydia Panda MD Height: 61 in Weight: 233 lb Performed By: Narinder Lezama RDCS, RVT BSA: 2.0 m2 BP: 137/98 mmHg HR: 98 Reason For Study: Chest Pain History: PCI, CABG, AFib, Watchman - 07/01, HTN, HLD, FER, ID, MV disorder, CAD Interpretation Summary The LV [...] ___ Transcribed By: SCV Performed At: 08/11/24 1546 Signed By: Will [place] MD 08/11/24 1750 Normal [facility] Eosinophils Auto (Bld) [#/Vo l]Ordered By: Winnie Grande on 08-11-2024 Eosinophils (Bld) [#/Vol] Automated eosinophil count 0.0-0.45 [facility] Eosinophils/100 WBC Auto (Bl d)Ordered By: Winnie Grande on 08-11-2024 Eosinophils/100 WBC (Bld) Automated eosinophil % . [facility] Erythrocyte distribution wid th Auto (RBC) [Ratio]Ordered By: Winnie Grande on 08-11-2024 Erythrocyte distribution width (RBC) [Ratio] Erythrocyte distribution width [Ratio] by Automated count 12.0-14.8 [facility] Glucose [Mass/volume] in Ser um or PlasmaOrdered By: Winnie Grande on 08-11-2024 Glucose [Mass/Vol] Glucose [Mass/volume ] in Serum or Plasma High 70-100 [facility] Comment on above: ADA recommended refe rence rangeRandom Glucose Reference Range is dependent on time and content of last meal. Glucose of more than 200 mg/dL in a nonstressed, ambulatory subject supports the diagnosis of Diabetes Mellitus. Hematocrit Auto (Bld) [Volum e fraction]Ordered By: Winnie Grande on 08-11-2024 Hematocrit (Bld) [Volume fraction] Hematocrit [Volume Fraction] of Blood by Automated count 38.8-50.0 [facility] Hemoglobin [Mass/volume] in BloodOrdered By: Winnie Grande on 08-11-2024 Hemoglobin (Bld) [Mass/Vol] Hemoglobin [Mass/volume] in Blood 13.0-17.0 [facility] INR in Platelet poor plasma by Coagulation assayOrdered By: Winnie Grande on 08-11-2024 INR Coag (PPP) [Relative time] INR in Platelet poor plasma by Coagulation assay [facility] Comment on above: INR Therapeutic Rang [...] Coag (PPP) [Relative time] 1.1 {INR} Normal [facility] Comment on above: INR Therapeutic Rang [...] heart valves: 3 - 4.5 PERFORMED BY: [place] [address] PATHOLOGIST STAMP COLLECTOR OSCAR HAY M.D. Performed By: #### B MP, PT #### [address] Leukocytes [#/volume] correc collins for nucleated erythrocytes in Blood by Automated counOrdered By: Winnie Grande on 08-11-2024 WBC corrected for nucl RBC Auto (Bld) [#/Vol] Leukocytes [#/volume] corrected for nucleated erythrocytes in Blood by Automated coun High 4.1-10.5 [facility] Lymphocytes Auto (Bld) [#/Vo l]Ordered By: Winnie Grande on 08-11-2024 Lymphocytes (Bld) [#/Vol] Lymphocytes [#/volume] in Blood by Automated count Low 1.00-4.8 [facility] Lymphocytes/100 WBC Auto (Bl d)Ordered By: Winnie Grande on 08-11-2024 Lymphocytes/100 WBC (Bld) Lymphocytes/100 leukocytes in Blood by Automated count . [facility] MCH Auto (RBC) [Entitic mass ]Ordered By: Winnie Grande on 08-11-2024 MCH (RBC) [Entitic mass] MCH [Entitic mass] by Automated count High 27.5-35.2 [facility] MCHC Auto (RBC) [Mass/Vol]Or dered By: Winnie Grande on 08-11-2024 MCHC (RBC) [Mass/Vol] MCHC [Mass/volume] by Automated count 32.5-35.6 [facility] MCV Auto (RBC) [Entitic vol] Ordered By: Winnie Grande on 08-11-2024 MCV (RBC) [Entitic vol] MCV [Entitic volume] by Automated count High 83.5-101 [facility] Monocyte distribution width [Entitic volume] in Blood by AutomatedOrdered By: Winnie Grande on 08-11-2024 Monocyte distribution width Auto (Bld) [Entitic vol] Monocyte distribution width [Entitic volume] in Blood by Automated 0.00-20.00 [facility] Monocyte distribution width Auto (Bld) [Entitic vol] 19.81 % 0.00-20.00 [facility] Monocytes Auto (Bld) [#/Vol] Ordered By: Winnie Grande on 08-11-2024 Monocytes (Bld) [#/Vol] Automated blood monocyte count 0.0-0.8 [facility] Monocytes/100 WBC Auto (Bld) Ordered By: Winnie Grande on 08-11-2024 Monocytes/100 WBC (Bld) Automated monocyte % . [facility] Natriuretic peptide B [Mass/ Vol]Ordered By: Winnie Grande on 08-11-2024 Natriuretic peptide B (Bld) [Mass/Vol] BNP ser/plas High 5-100 [facility] Neutrophils Auto (Bld) [#/Vo l]Ordered By: Winnie Grande on 08-11-2024 Neutrophils (Bld) [#/Vol] Neutrophils [#/volume] in Blood by Automated count High 1.8-7.7 [facility] Neutrophils/100 WBC Auto (Bl d)Ordered By: Winnie Grande on 08-11-2024 Neutrophils/100 WBC (Bld) Automated neutrophil % . [facility] No Panel InformationOrdered By: Winnie Grande on 08-11-2024 Estimated GFR (CKD-EPI) > 60.0 mL/Min [facility] Creatinine Clearance (Chem 124.04 [facility] Nucleated erythrocytes [Pres ence] in Blood by Automated countOrdered By: Winnie Grande on 08-11-2024 Nucleated RBC Auto Ql (Bld) Nucleated erythrocytes [Presence] in Blood by Automated count 0-0.5 [facility] Platelet mean volume Auto (B ld) [Entitic vol]Ordered By: Winnie Grande on 08-11-2024 Platelet mean volume (Bld) [Entitic vol] Platelet mean volume [Entitic volume] in Blood by Automated count 6.6-10.1 [facility] Platelets Auto (Bld) [#/Vol] Ordered By: Winnie Grande on 08-11-2024 Platelets (Bld) [#/Vol] Platelets [#/volume] in Blood by Automated count Low 150-450 [facility] Potassium [Moles/volume] in Serum or PlasmaOrdered By: Winnie Grande on 08-11-2024 Potassium [Moles/Vol] Potassium [Moles/v olume] in Serum or Plasma 3.5-5.1 [facility] Comment on above: Hemolysis is present at a level that could interfere with the result.Contact lab if redraw is required Prothrombin time (PT)Ordered By: Winnie Grande on 08-11-2024 PT Coag (PPP) [Time] Prothrombin time (PT) 9.0- 12.9 [facility] Comment on above: A hematocrit value g reater than 55% may lead to inaccurate results in coagulation testing. Patients having hematocrit values >55% require a special collection tube for coagulation studies. Please contact the laboratory at [phone] for redraw instructions. PT Coag (PPP) [Time] 12.5 s Normal 9.0-12.9 [facility] Comment on above: A hematocrit value g reater than 55% may lead to inaccurate results in coagulation testing. Patients having hematocrit values >55% require a special collection tube for coagulation studies. Please contact the laboratory at [phone] for redraw instructions. Result Comment: A he matocrit value greater than 55% may lead to inaccurate results in coagulation testing. Patients having hematocrit values >55% require a special collection tube for coagulation studies. Please contact the laboratory at [phone] for redraw instructions. Performed By: #### B MP, PT #### [facility] [address] [place] [address] [facility] RBC Auto (Bld) [#/Vol]Ordere d By: Winnie Grande on 08-11-2024 RBC (Bld) [#/Vol] Erythrocytes [#/volu me] in Blood by Automated count 3.90-5.60 [facility] Serum or plasma anion gap de terminationOrdered By: Winnie Grande on 08-11-2024 Anion gap [Moles/Vol] Serum or plasma an ion gap determination 6.0-15.0 [facility] Sodium [Moles/volume] in Ser um or PlasmaOrdered By: Winnie Grande on 08-11-2024 Sodium [Moles/Vol] Sodium [Moles/volume ] in Serum or Plasma Low 136-145 [facility] Thyrotropin [Units/volume] i n Serum or PlasmaOrdered By: Lydia Connelly on 08-11-2024 TSH Qn Thyrotropin [Units/volume] in Serum or Plasma 0.45-5.33 [facility] TSH Qn 0.50 m[IU]/L Normal 0.45-5.33 [facility] Comment on above: Result Comment: PERF ORMED BY: [address] [address] PATHOLOGIST STAMP COLLECTOR OSCAR HAY M.D. Performed By: #### T SH3 ####[place] [id number] [facility] Troponin I High Sensitivityo n 08-11-2024 Troponin I High Sensitivity 14 Normal 0-20 [facility] Comment on above: Result Comment: The Troponin units of report have been changed to meet the Chest Pain Accreditation requirement, element EC5.M1l2. Troponin units are changed from pg/ml to ng/L. Also, the decimal is removed and results are in whole numbers. PERFORMED BY: [place] [address] PATHOLOGIST STAMP COLLECTOR OSCAR HAY M.D. Performed By: #### H S TROP #### [address] Troponin I High Sensitivity 14 Normal 0-20 [facility] Comment on above: Result Comment: The Troponin units of report have been changed to meet the Chest Pain Accreditation requirement, element EC5.M1l2. Troponin units are changed from pg/ml to ng/L. Also, the decimal is removed and results are in whole numbers. PERFORMED BY: [place] [address] PATHOLOGIST STAMP COLLECTOR OSCAR HAY M.D. Performed By: #### H S TROP ####[place] [id number] [facility] Troponin I High Sensitivity 16 Normal 0-20 [facility] Comment on above: Result Comment: The Troponin units of report have been changed to meet the Chest Pain Accreditation requirement, element EC5.M1l2. Troponin units are changed from pg/ml to ng/L. Also, the decimal is removed and results are in whole numbers. PERFORMED BY: [place] [address] PATHOLOGIST STAMP COLLECTOR OSCAR HAY M.D. Performed By: #### C K, BNP, HS TROP, PT, CBC, BMP ####[place] [id number] [facility] Troponin I.cardiac [Mass/vol ume] in Serum or Plasma by Detection limit <= 0.01 ng/Ordered By: Lydia Connelly on 08-11-2024 Troponin I.cardiac DL <= 0.01 ng/mL [Mass/Vol] Troponin I.cardiac [Mass/volume] in Serum or Plasma by Detection limit <= 0.01 ng/ 0-20 [facility] Comment on above: The Troponin units [...] nitrogen [Mass/volume] in Serum or Plasma 10-31 [facility] WBC Auto (Bld) [#/Vol]Ordere d By: Winnie Grande on 08-11-2024 WBC (Bld) [#/Vol] Leukocytes [#/volume ] in Blood by Automated count High 4.1-10.5 [facility] X-ray reportOrdered By: Don Castro on 08-11-2024 Study report [facility] [place] [address] XRay Report Signed Patient: Esme Steven MR#: [id number] : 1960 Acct:[id number] Age/Sex: 63 / M ADM Date: 5 Loc: ER Room: Type: [facility] ER Attending Dr: Copies to: Winnie Grande [...] Jr., D.O. 08/11/2024 11:24 AM Dictation Location: [place] [address] Transcribed By: GWEN 08/11/24 1124 Dictated By: Alex Castro Jr, DO 08/11/24 1123 Signed By: 08/11/24 1124 [facility] XR chest 2V*on 08-11-2024 XR chest 2V* [facility] Main [place] [address] [place] [address] XRay Report Signed Patient: Esme Steven MR#: [id number] : 1960 Acct:[id number] Age/Sex: 63 / M ADM Date: 08/11/24 Loc: ER Room: Type: [facility] ER Attending Dr: Copies to: Winnie Grande [...] ABNORMALITY. Impression dictated by: Alex Castro Jr., D.OBarbara 08/11/2024 11:24 AM Dictation Location: [place] [address] Transcribed By: [facility] 08/11/24 112 Dictated By: Alex Castro Jr, DO 08/11/24 112 Signed By: 08/11/24 1124 Normal [facility] X-ray reportOrdered By: Tri Camilo on 08-06-2024 Study report [facility] [address] [place] [address] XRay Report Signed Patient: Esme Steven MR#: [id number] : 1960 Acct:[id number] Age/Sex: 63 / M ADM Date: 5 Loc: SOXD Room: Type: [facility] CLI Attending Dr: Sarai Mendez II, MD [...] Camilo M.D. 08/06/2024 5:00 PM Dictation Location: [place] [address] Transcribed By: [facility] 08/06/24 170 Dictated By: Gisell Camilo MD 08/06/24 2364 Signed By: 08/06/241699 [facility] Work Phone: XR hip LT min 2V(w/wo pelvis )*on 08-06-2024 XR hip LT min 2V(w/wo pelvis)* [facility] [address] [place] [address] XRay Report Signed Patient: Esme Steven MR#: [id number] : 1960 Acct:[id number] Age/Sex: 63 / M ADM Date: 08/06/24 [place] [facility] Room: Type: [facility] Attending Dr: Sarai Mendez II, MD Copies [...] Camilo M.D. 08/06/2024 5:00 PM Dictation Location: RADIO-PC-23 Transcribed By: GWEN 08/06/241699 Dictated By: Gisell Camilo MD 08/06/241658 Signed By: 08/06/241699 Normal [facility] X-ray reportOrdered By: Viraj Paul on 08-04-2024 Study report [facility] [address] [place] [address] XRay Report Signed Patient: Esme Steven MR#: [id number] : 1960 Acct:[id number] Age/Sex: 63 / M ADM Date: 5 Loc: [facility] Room: Type: [facility] Attending Dr: Chio Nichole MD Copies to: Chio Nichole MD~ Ordering Provider: Chio Nichole MD Date of Service: 08/04/24 XR/XR hand LT min 3V*: M79.642 - Pain in left hand LEFT HAND - 4 views COMPARISON: None REASON FOR EXAM: Injury, pain base of fifth metacarpal FINDINGS: 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 Untu-ft-yokwhgxy degenerative changes elsewhere. No fractures or dislocation.. Mild intercarpal degenerative changes. XR/XR hand LT min 3V* IMPRESSION: NO ACUTE BONY INJURY. Impression dictated by: Ap Paul M.D. 08/04/2024 7:49 PM Dictation Location: RADIO-PC-29 Transcribed By: PWS 08/04/241948 Dictated By: Ap Paul MD 08/04/241946 Signed By: 08/04/241948 [facility] Work Phone: XR hand LT min 3V*on 025 XR hand LT min 3V* [facility] [address] [place] [address] XRay Report Signed Patient: Esme Steven MR#: [id number] : 1960 Acct:[id number] Age/Sex: 63 / M ADM Date: 08/04/24 Loc: [facility] Room: Type: REG CLI Attending Dr: Chio [...] metacarpal joint and scaphoid multi angular joint. Gjme-me-lqgyhshu degenerative changes elsewhere. No fractures or dislocation.. Mild intercarpal degenerative changes. XR/XR hand LT min 3V* IMPRESSION: NO ACUTE BONY INJURY. Impression dictated by: Ap Paul M.D. 08/04/2024 7:49 PM Dictation Location: [place] [address] Transcribed By: [facility] 08/04/241948 Dictated By: Ap Paul MD 08/04/241946 Signed By: 08/04/241948 Normal [facility] X-ray reportOrdered By: Tri Camilo on 08-01-2024 Study report [facility] [place] [address] [place] [address] XRay Report Signed Patient: Esme Steven MR#: [id number] : 1960 Acct:[id number] Age/Sex: 63 / M ADM Date: 5 Loc: ER Room: Type: [facility] Attending Dr: Copies to: Cosmo Guzman [...] Camilo M.D. 08/01/2024 11:52 AM Dictation Location: [place] [address] Transcribed By: [facility] 08/01/24 1152 Dictated By: Gisell Camilo MD 08/01/24 1150 Signed By: 08/01/24 1152 [facility] Work Phone: XR hip LT min 2V(w/wo pelvis )*on 08-01-2024 XR hip LT min 2V(w/wo pelvis)* [facility] [place] [address] XRay Report Signed Patient: Esme Steven MR#: [id number] : 1960 Acct:[id number] Age/Sex: 63 / M ADM Date: 08/01/24 Loc: ER Room: Type: [facility] Attending Dr: Copies to: Cosmo Guzman [...] Camilo M.D. 08/01/2024 11:52 AM Dictation Location: [facility] Transcribed By: GWEN 08/01/24 1152 Dictated By: Gisell Camilo MD 08/01/24 1150 Signed By: 08/01/24 1152 Normal [facility] MICHAELN Telephone (RADHA) ----- ESME STEVEN ([id number]) 1960 M Date Time Provider Department 07/07/24 [...] [SQCMP] Or (more content not included)... Normal [facility] 25(OH)D3 SerPl-mCncon 2024 25-hydroxyvitamin D3 [Mass/Vol] 19.2 ng/mL Low 31.0-80.[address] [facility] Comment on above: Order Comment: Speci men Type: BLOOD SPECIMEN Ordering Facility: [facility] Address: [address] [place] [address] Result Comment: Clas sification of 25 [place] Vitamin D status: Deficiency/Insufficiency: < or = 30 ng/ml. Sufficiency/Optimal Levels: 31-80 ng/mL Toxicity: > 100 ng/mL. Test performed by chemiluminescent immunoassay. Performed By: #### 1 989-3 #### [facility] CLIA [id number] [address] [place], [place] [address] [address] [place] CBC panel Auto (Bld)on 06-30 Erythrocyte distribution width (RBC) [Ratio] 13.3 % 11.5 - 15.0 % [facility] Hematocrit (Bld) [Volume fraction] 49.9 % 39.0 - 51.0 % [facility] Hemoglobin (Bld) [Mass/Vol] 16.9 g/dL 13.0 - 17.0 g/dL [facility] Interpretation and review of laboratory results Abnormal [facility] MCH (RBC) [Entitic mass] 35.2 pg High 26.0 - 34.0 pg [facility] MCHC (RBC) [Mass/Vol] 33.9 g/dL 30.5 - 36.0 g/dL [facility] MCV (RBC) [Entitic vol] 104 fL High 80.0 - 100.0 fL [facility] Nucleated RBC (Bld) [#/Vol] NINF [facility] Platelet mean volume (Bld) [Entitic vol] 10.6 fL 9.0 - 12.7 fL [facility] Platelets (Bld) [#/Vol] 239 10*3/uL [facility] RBC (Bld) [#/Vol] 4.8 10*6/uL 4.20 - 6.00 m/uL [facility] WBC (Bld) [#/Vol] 12.61 10*3/uL High [facility] Erythrocyte distribution width (RBC) [Ratio] 13.3 % Normal 11.5-15.[address] [facility] Comment on above: Order Comment: Speci men Type: BLOOD SPECIMEN Ordering Facility: [facility] Address: [address] [place] [address] Performed By: #### 5 8410-2, 4537-7 #### [facility] CLIA [id number] [address] [place] [address] [place] Hematocrit (Bld) [Volume fraction] 49.9 % Normal 39.0-51.[address] [facility] Comment on above: Order Comment: Speci men Type: BLOOD SPECIMEN Ordering Facility: [facility] Address: [address] [place] [address] Performed By: #### 5 8410-2, 4537-7 #### [facility] CLIA [id number] [address] [place] [address] [place] Hemoglobin (Bld) [Mass/Vol] 16.9 g/dL Normal 13.0-17.[address] [facility] Comment on above: Order Comment: Speci men Type: BLOOD SPECIMEN Ordering Facility: [facility] Address: [address] [place] [address] Performed By: #### 5 8410-2, 4537-7 #### [facility] CLIA [id number] [address] [place] [address] [place] MCH (RBC) [Entitic mass] 35.2 pg High 26.0-34.[address] [facility] Comment on above: Order Comment: Speci men Type: BLOOD SPECIMEN Ordering Facility: [facility] Address: [address] [place] [address] Performed By: #### 5 8410-2, 4537-7 #### [facility] CLIA [id number] [address] [place] [address] [place] MCHC (RBC) [Mass/Vol] 33.9 g/dL Normal 30.5-36.0 [facility] Comment on above: Order Comment: Speci men Type: BLOOD SPECIMEN Ordering Facility: [facility] Address: [address] [place] [address] Performed By: #### 5 8410-2, 4537-7 #### [facility] CLIA [id number] [address] [place] [address] [place] MCV (RBC) [Entitic vol] 104.0 fL High 80.0-100.[address] [facility] Comment on above: Order Comment: Speci men Type: BLOOD SPECIMEN Ordering Facility: [facility] Address: [address] [place] [address] Performed By: #### 5 8410-2, 4537-7 #### [facility] CLIA [id number] [address] [place] [address] [place] Nucleated RBC (Bld) [#/Vol] 10*3/uL Normal <0.[address] [facility] Comment on above: Order Comment: Speci men Type: BLOOD SPECIMEN Ordering Facility: [facility] Address: [address] [place] [address] Performed By: #### 5 8410-2, 4537-7 #### [facility] CLIA [id number] [address] [place] [address] [place] Platelet mean volume (Bld) [Entitic vol] 10.6 fL Normal 9.0-12.[address] [facility] Comment on above: Order Comment: Speci men Type: BLOOD SPECIMEN Ordering Facility: [facility] Address: [address] [place] [address] Performed By: #### 5 8410-2, 4537-7 #### [facility] CLIA [id number] [address] [place] [address] [place] Platelets (Bld) [#/Vol] 239 10*3/uL Normal 150-[address] [facility] Comment on above: Order Comment: Speci men Type: BLOOD SPECIMEN Ordering Facility: [facility] Address: [address] [place] [address] Performed By: #### 5 8410-2, 4537-7 #### [facility] CLIA [id number] [address] [place] [address] [place] RBC (Bld) [#/Vol] 4.80 10*6/uL Normal 4.20-6.[address] [facility] Comment on above: Order Comment: Speci men Type: BLOOD SPECIMEN Ordering Facility: [facility] Address: [address] [place] [address] Performed By: #### 5 8410-2, 4537-7 #### [facility] CLIA [id number] [address] [place] [address] [place] WBC (Bld) [#/Vol] 12.61 10*3/uL High 3.70-11.00 [facility] Comment on above: Order Comment: Speci men Type: BLOOD SPECIMEN Ordering Facility: [facility] Address: [address] [place] [address] Performed By: #### 5 8410-2, 4537-7 #### [facility] CLIA [id number] [address] [place] [address] [place] CNOVon 06-30-2024 CNOV Office Visit (JESSICAN ) ----- ESME STEVEN ([id number]) 1960 M Date Time Provider Department 06/30/24 [...] touching your toes, sit-ups, using row machine shelter pain recommendations per primary care provider/pain clinic [...] and leg (more content not included)... Normal [facility] CRP [facility]2024 CRP [Mass/Vol] 0.6 mg/dL Normal <0.[address] [facility] Comment on above: Order Comment: Speci men Type: BLOOD SPECIMEN Ordering Facility: [facility] Address: [address] [place] [address] Performed By: #### 1 988-5, 3084-1, 76066-3 #### [facility] CLIA [id number] [address] [place] [address] [place] [address] [place] Comprehensive metabolic 2000 panelon 06-30-2024 Albumin [Mass/Vol] 4.1 g/dL Normal 3.9-4.[address] [facility] Comment on above: Order Comment: Speci men Type: BLOOD SPECIMEN Ordering Facility: [facility] Address: [address] [place] [address] Performed By: #### 1 988-5, 3084-1, 30443-4 #### [facility] CLIA [id number] [address] [place] [address] [place] ALP [Catalytic activity/Vol] 67 U/L Normal 38-[address] [facility] Comment on above: Order Comment: Speci men Type: BLOOD SPECIMEN Ordering Facility: [facility] Address: [address] [place] [address] Performed By: #### 1 988-5, 3084-1, 28929-3 #### [facility] CLIA [id number] [address] [place] [address] [place] ALT [Catalytic activity/Vol] 73 U/L High 10-[address] [facility] Comment on above: Order Comment: Speci men Type: BLOOD SPECIMEN Ordering Facility: [facility] Address: [address] [place] [address] Performed By: #### 1 988-5, 3084-1, 72713-6 #### [facility] CLIA [id number] [address] [place] [address] [place] Anion gap [Moles/Vol] 14 mmol/L Normal 8-15 [facility] Comment on above: Order Comment: Speci men Type: BLOOD SPECIMEN Ordering Facility: [facility] Address: [address] [place] [address] Performed By: #### 1 988-5, 3084-1, 06446-0 #### [facility] CLIA [id number] [address] [place] [address] [place] AST [Catalytic activity/Vol] 35 U/L Normal 14-[address] [facility] Comment on above: Order Comment: Speci men Type: BLOOD SPECIMEN Ordering Facility: [facility] Address: [address] [place] [address] Performed By: #### 1 988-5, 3083-04, #### [facility] CLIA [id number] [address] [place] [address] [place] Bilirubin [Mass/Vol] 0.7 mg/dL Normal 0.2-1.3 [facility] Comment on above: Order Comment: Speci men Type: BLOOD SPECIMEN Ordering Facility: [facility] Address: [address] [place] [address] Performed By: #### 1 988-5, 3083-04, #### [facility] CLIA [id number] [address] [place] [address] [place] Calcium [Mass/Vol] 9.7 mg/dL Normal 8.5-10.[address] [facility] Comment on above: Order Comment: Speci men Type: BLOOD SPECIMEN Ordering Facility: [facility] Address: [address] [place] [address] Performed By: #### 1 988-5, 3083-04, #### [facility] CLIA [id number] [address] [place] [address] [place] Chloride [Moles/Vol] 97 mmol/L Low 98-107 [facility] Comment on above: Order Comment: Speci men Type: BLOOD SPECIMEN Ordering Facility: [facility] Address: [address] [place] [address] Performed By: #### 1 988-5, 3083-04, #### [facility] CLIA [id number] [address] [place], [place] [address] [place] CO2 [Moles/Vol] 24 mmol/L Normal 22-[address] [facility] Comment on above: Order Comment: Speci men Type: BLOOD SPECIMEN Ordering Facility: [facility] Address: [address] [place], [place] [address] Performed By: #### 1 988-5, 3083-04, #### [facility] CLIA [id number] [address] [address] [place] Creatinine [Mass/Vol] 0.93 mg/dL Normal 0.73-1.22 [facility] Comment on above: Order Comment: Speci men Type: BLOOD SPECIMEN Ordering Facility: [facility] Address: [address] [place] [address] Performed By: #### 1 988-5, 3083-04, #### [facility] CLIA [id number] [address] [place] [address] [place] Creatinine and Glomerular filtration rate.predicted panel (S/P/Bld) 92 mL/min/1.73m??? Normal >=[address] [facility] Comment on above: Order Comment: Speci men Type: BLOOD SPECIMEN Ordering Facility: [facility] Address: [address] [place] [address] Result Comment: Melvian mated Glomerular Filtration Rate (eGFR) is calculated [...] actual GFR. Performed By: #### 1 988-5, 308-, #### [facility] CLIA [id number] [address] [place] [address] [place] Glucose [Mass/Vol] 213 mg/dL High 74-[address] [facility] Comment on above: Order Comment: Speci men Type: BLOOD SPECIMEN Ordering Facility: [facility] Address: [address] [place] [address] Result Comment: The [place] Diabetes Association (ADA) provides guidance for cutoff [...] Standards of Medical Care in Diabetes 2016, [place] [employer]. Diabetes Care. 2016.39(Suppl 1). Performed By: #### 1 988-5, 3084-1, 56087-8 #### [facility] CLIA [id number] [address] [place] [address] [place] Potassium [Moles/Vol] 4.5 mmol/L Normal 3.7-5.1 [facility] Comment on above: Order Comment: Speci men Type: BLOOD SPECIMEN Ordering Facility: [facility] Address: [address] [place] [address] Performed By: #### 1 988-5, 30807-08, 89432-3 #### [facility] CLIA [id number] [address] [place] [address] [place] Protein [Mass/Vol] 7.1 g/dL Normal 6.3-8.[address] [facility] Comment on above: Order Comment: Speci men Type: BLOOD SPECIMEN Ordering Facility: [facility] Address: [address] [place] [address] Performed By: #### 1 988-5, 30807-08, 33814-2 #### [facility] CLIA [id number] [address] [place] [address] [place] Sodium [Moles/Vol] 135 mmol/L Low 136-[address] [facility] Comment on above: Order Comment: Speci men Type: BLOOD SPECIMEN Ordering Facility: [facility] Address: [address] [place] [address] Performed By: #### 1 988-5, 3084-1, 48963-5 #### [facility] CLIA [id number] [address] [place] [address] [place] Urea nitrogen [Mass/Vol] 20 mg/dL Normal 9-[address] [facility] Comment on above: Order Comment: Speci men Type: BLOOD SPECIMEN Ordering Facility: [facility] Address: [address] [place] [address] Performed By: #### 1 988-5, 3084-1, 10575-1 #### [facility] CLIA [id number] [address] [place] [address] [place] ESR Westergren method (Bld) [Velocity]on 06-30-2024 ESR (Bld) [Velocity] 12 mm/h Normal 0-15 [facility] Comment on above: Order Comment: Speci men Type: BLOOD SPECIMEN Ordering Facility: [facility] Address: [address] [place] [address] Performed By: #### 5 8410-2, 4537-7 #### [facility] CLIA [id number] [address] [place] [address] [place] Erythrocyte distribution wid th Auto (RBC) [Ratio]on 06-30-2024 Erythrocyte distribution width (RBC) [Ratio] Erythrocyte distribution width [Ratio] by Automated count 11.5-15.0 [facility] Hematocrit Auto (Bld) [Volum e fraction]on 06-30-2024 Hematocrit (Bld) [Volume fraction] Hematocrit [Volume Fraction] of Blood by Automated count 39.0-51.0 [facility] Hemoglobin [Mass/volume] in Bloodon 06-30-2024 Hemoglobin (Bld) [Mass/Vol] Hemoglobin [Mass/volume] in Blood 13.0-17.0 [facility] - Chemistry and C hemistry - challengeon 06-30-2024 Albumin [Mass/Vol] 4.1 g/dL 3.9-4.9 [facility] ALP [Catalytic activity/Vol] 67 U/L 38-113 [facility] ALT [Catalytic activity/Vol] 73 U/L High 10-54 [facility] AST [Catalytic activity/Vol] 35 U/L 14-40 [facility] Bilirubin [Mass/Vol] 0.7 mg/dL 0.2-1.3 [facility] Calcium [Mass/Vol] 9.7 mg/dL 8.5-10.2 [facility] Chloride [Moles/Vol] 97 mmol/L Low 98-107 [facility] CO2 [Moles/Vol] 24 mmol/L 22-30 [facility] Creatinine [Mass/Vol] 0.93 mg/dL 0.73-1.22 [facility] Glucose [Mass/Vol] 213 mg/dL High 74-99 [facility] Comment on above: The [place] Diabete s Association (ADA) provides guidance for [...] Standards of Medical Care in Diabetes 2016, [place] Diabetes Association. Diabetes Care. 2016.39(Suppl 1). Potassium [Moles/Vol] 4.5 mmol/L 3.7-5.1 [facility] Sodium [Moles/Vol] 135 mmol/L Low 136-144 [facility] Urate [Mass/Vol] 6.4 mg/dL 4.0-8.1 [facility] Urea nitrogen [Mass/Vol] 20 mg/dL 9-24 [facility] - Hematology and Cell countson 06-30-2024 ESR (Bld) [Velocity] 12 mm/h 0-15 [facility] Leukocytes [#/volume] correc collins for nucleated erythrocytes in Blood by Automated counon 06-30-2024 WBC corrected for nucl RBC Auto (Bld) [#/Vol] Leukocytes [#/volume] corrected for nucleated erythrocytes in Blood by Automated coun High 3.70-11.00 [facility] MCH Auto (RBC) [Entitic mass ]on 06-30-2024 MCH (RBC) [Entitic mass] MCH [Entitic mass] by Automated count High 26.0-34.0 [facility] MCHC Auto (RBC) [Mass/Vol]on 06-30-2024 MCHC (RBC) [Mass/Vol] MCHC [Mass/volume] by Automated count 30.5-36.0 [facility] MCV Auto (RBC) [Entitic vol] on 06-30-2024 MCV (RBC) [Entitic vol] MCV [Entitic volume] by Automated count High 80.0-100.0 [facility] No Panel Informationon 06-30 25-Hydroxy Vitamin D Total 19.2 ng/mL Low 31.0-80.0 [facility] Comment on above: Classification of 25 [place] Vitamin D status: Deficiency/Insufficiency: < or = 30 ng/ml.Sufficiency/Optimal Levels: 31-80 ng/mLToxicity: > 100 ng/mL. Test performed by chemiluminescent immunoassay. C-Reactive Protein, Quantitative 0.6 mg/dL <0.9 [facility] Estimated GFR (CKD-EPI) 92 mL/min/1.73m??? >=60 [facility] Comment on above: Estimated Glomerular Filtration [...] [#/volume] in Blood by Automated count <0.01 [facility] Platelet mean volume Auto (B ld) [Entitic vol]on 06-30-2024 Platelet mean volume (Bld) [Entitic vol] Platelet mean volume [Entitic volume] in Blood by Automated count 9.0-12.7 [facility] Platelets Auto (Bld) [#/Vol] on 06-30-2024 Platelets (Bld) [#/Vol] Platelets [#/volume] in Blood by Automated count 150-400 [facility] Protein [Mass/volume] in Ser um or Plasmaon 06-30-2024 Protein [Mass/Vol] Protein [Mass/volume ] in Serum or Plasma 6.3-8.0 [facility] RBC Auto (Bld) [#/Vol]on RBC (Bld) [#/Vol] Erythrocytes [#/volu me] in Blood by Automated count 4.20-6.00 [facility] Serum or plasma anion gap de terminationon 06-30-2024 Anion gap [Moles/Vol] Serum or plasma an ion gap determination 8-15 [facility] Urate SerPl-mCncon Urate [Mass/Vol] 6.4 mg/dL Normal 4.0-8.1 [facility] Comment on above: Order Comment: Speci men Type: BLOOD SPECIMEN Ordering Facility: [facility] Address: [address] [place] [address] Performed By: #### 1 988-5, 3084-1, 64796-6 #### [facility] CLIA [id number] [address] [place] [address] [place] [address] WATCHMAN FULL [...] PM -------- ORIGINAL REPORT -------- Dictation workstation: [id number] Interpreted By: Marcial Barreto, STUDY: CT WATCHMAN FULL CONTRAST; 06/13/2024 2:23 pm INDICATION: Signs/Symptoms:A-fib, Post Watchman. COMPARISON: None. ACCESSION NUMBER(S): [id number] ORDERING CLINICIAN: BIRD KOWALSKI TECHNIQUE: Using multidetector [...] surface/left atrial aspect of closure device. Reading Packager Head: Dr. Marcial Barreto, Date: 06/15/2024 2:13 pm Signed by: Marcial Barreto 06/15/2024 2:17 PM Dictation workstation: [id number] [facility] Albumin [Mass/volume] in Ser um or Plasma by Bromocresol green (BCG) dye binding methoOrdered By: Bird Kowalski on 05-29-2024 Albumin BCG dye [Mass/Vol] Albumin [Mass/volume] in Serum or Plasma by Bromocresol green (BCG) dye binding metho 3.5-5.7 [facility] Calcium [Mass/volume] in Ser um or PlasmaOrdered By: Bird Kowalski on 05-29-2024 Calcium [Mass/Vol] Calcium [Mass/volume ] in Serum or Plasma 8.6-10.3 [facility] Carbon dioxide, total [Moles /volume] in Serum or PlasmaOrdered By: Bird Kowalski on 05-29-2024 CO2 [Moles/Vol] Carbon dioxide, tota l [Moles/volume] in Serum or Plasma 21.0-31.0 [facility] Chloride [Moles/volume] in S ursula or PlasmaOrdered By: Bird Kowalski on 05-29-2024 Chloride [Moles/Vol] Chloride [Moles/vol ume] in Serum or Plasma 98-107 [facility] Creatinine [Mass/volume] in Serum or PlasmaOrdered By: Bird Kowalski on 05-29-2024 Creatinine [Mass/Vol] Creatinine [Mass/v olume] in Serum or Plasma 0.70-1.30 [facility] Glucose [Mass/volume] in Ser um or PlasmaOrdered By: Bird Kowalski on 05-29-2024 Glucose [Mass/Vol] Glucose [Mass/volume ] in Serum or Plasma High 70-100 [facility] Comment on above: ADA recommended refe rence rangeRandom Glucose Reference Range is dependent on time and content of last meal. Glucose of more than 200 mg/dL in a nonstressed, ambulatory subject supports the diagnosis of Diabetes Mellitus. No Panel InformationOrdered By: Bird Kowalski on 05-29-2024 Estimated GFR (CKD-EPI) > 60.0 mL/Min [facility] Creatinine Clearance (Chem N/A [facility] Phosphate [Mass/volume] in S ursula or PlasmaOrdered By: Bird Kowalski on 05-29-2024 Phosphate [Mass/Vol] Phosphate [Mass/vol ume] in Serum or Plasma 2.5-4.5 [facility] Potassium [Moles/volume] in Serum or PlasmaOrdered By: Bird Kowalski on 05-29-2024 Potassium [Moles/Vol] Potassium [Moles/v olume] in Serum or Plasma 3.5-5.1 [facility] Renal Function Panelon 05-29 Albumin [Mass/Vol] 4.1 g/dL Normal 3.5-5.7 [facility] Comment on above: Result Comment: PERF ORMED BY: [place] [address] PATHOLOGIST STAMP COLLECTOR OSCAR HAY M.D. Performed By: #### R ENAL #### [facility] [address] Anion gap [Moles/Vol] 11.9 mmol/L Normal 6.0-15.0 [facility] Comment on above: Performed By: #### R ENAL #### [facility] [address] [place] [address] [place] Calcium [Mass/Vol] 9.1 mg/dL Normal 8.6-10.3 [facility] Comment on above: Performed By: #### R ENAL #### [facility] [address] [place] [address] [place] Chloride [Moles/Vol] 102 mmol/L Normal 98-107 [facility] Comment on above: Performed By: #### R ENAL #### [place] [address] [place] CO2 [Moles/Vol] 27.4 mmol/L Normal 21.0-31.0 The [facility] Comment on above: Performed By: #### R ENAL #### [address] Creatinine [Mass/Vol] 0.91 mg/dL Normal 0.70-1.30 [facility] Comment on above: Performed By: #### R ENAL #### [place] [address] [place] GFR/1.73 sq M.predicted MDRD (S/P/Bld) [Vol rate/Area] mL/min/{1.73_m2} Normal [facility] Comment on above: Performed By: #### R ENAL #### [address] Glucose [Mass/Vol] 169 mg/dL High 70-100 [facility] Comment on above: Result Comment: [facility] Glucose Reference Range is dependent on time and content of last meal. Glucose of more than 200 mg/dL in a nonstressed, ambulatory subject supports the diagnosis of Diabetes Mellitus. ADA recommended reference range Performed By: #### R ENAL #### [place] [address] [place] Phosphate [Mass/Vol] 3.9 mg/dL Normal 2.5-4.5 [facility] Comment on above: Performed By: #### R ENAL #### [place] [address] [place] Potassium [Moles/Vol] 4.3 mmol/L Normal 3.5-5.1 [facility] Comment on above: Performed By: #### R ENAL #### [place] [address] [place] Sodium [Moles/Vol] 137 mmol/L Normal 136-145 [facility] Comment on above: Performed By: #### R ENAL #### [place] [address] [place] Urea nitrogen [Mass/Vol] 24 mg/dL Normal 7- [facility] Comment on above: Performed By: #### R ENAL #### [facility] [address] Serum or plasma anion gap de terminationOrdered By: Brid Kowalski on 05-29-2024 Anion gap [Moles/Vol] Serum or plasma an ion gap determination 6.0-15.0 [facility] Sodium [Moles/volume] in Ser um or PlasmaOrdered By: Bird Kowalski on 05-29-2024 Sodium [Moles/Vol] Sodium [Moles/volume ] in Serum or Plasma 136-145 [facility] Urea nitrogen [Mass/volume] in Serum or PlasmaOrdered By: Bird Kowalski on 05-29-2024 Urea nitrogen [Mass/Vol] Urea nitrogen [Mass/volume] in Serum or Plasma 7-25 [facility] Activated clotting timeon ACT Coag (Bld) 277 s High 89-169 [facility] Comment on above: Result Comment: Targ et ACT range will vary based on the patient population, clinical status, and surgical intervention occurring. Performed By: #### 3 184-9 #### RAPHAEL Blanco ([id number]) [facility] ([facility]) [id number] [place] [address] Basic metabolic 2000 panelon 01-29-2024 Anion gap [Moles/Vol] 13 mmol/L 10 - 2 0 mmol/L [facility] Calcium [Mass/Vol] 9.1 mg/dL 8.6 - 10. 6 mg/dL [facility] Chloride [Moles/Vol] 100 mmol/L 98 - 10 7 mmol/L [facility] CO2 [Moles/Vol] 26 mmol/L 21 - 32 mmol/L [facility] Creatinine [Mass/Vol] 1.02 mg/dL 0.50 - 1.30 mg/dL [facility] GFR/1.73 sq M.predicted among non-blacks MDRD (S/P/Bld) [Vol rate/Area] 82 mL/min/{1.73_m2} - PINF [facility] Comment on above: Calculations of melvina mated GFR are performed using the 2020 CKD-EPI Study Refit equation without the race variable for the IDMS-Traceable creatinine methods. https://jasn.asnjournals.org/content//ASN.67806 71026 Glucose [Mass/Vol] 142 mg/dL High 74 - 99 mg/dL [facility] Potassium [Moles/Vol] 3.7 mmol/L 3.5 - 5.3 mmol/L [facility] Sodium [Moles/Vol] 135 mmol/L Low 136 - 145 mmol/L [facility] Urea nitrogen [Mass/Vol] 18 mg/dL 6 - 23 mg/dL [facility] Anion gap [Moles/Vol] 13 mmol/L Normal 10-20 [facility] Comment on above: Performed By: #### 2 4321-2 #### RAPHAEL Blanco ([id number]) [facility] ([facility]) [address] [address] Calcium [Mass/Vol] 9.1 mg/dL Normal 8.6-10.6 [facility] Comment on above: Performed By: #### 2 4321-2 #### RAPHAEL QUINTERO L ([id number]) [facility] ([facility]) [address] [place] [address]9540 Chloride [Moles/Vol] 100 mmol/L Normal 98-107 [facility] Comment on above: Performed By: #### 2 4321-2 #### RAPHAEL QUINTERO L ([id number]) [facility] ([facility]) [address] [place] [address]5431 CO2 [Moles/Vol] 26 mmol/L Normal 21-32 [facility] Comment on above: Performed By: #### 2 4321-2 #### RAPHAEL QUINTERO L ([id number]) [facility] ([facility]) [address] [place] [address]20 Creatinine [Mass/Vol] 1.02 mg/dL Normal 0.50-1.30 [facility] Comment on above: Performed By: #### 2 4321-2 #### RAPHAEL Blanco ([id number]) [facility] ([facility]) [address] [place] [address]853 Glomerular filtration rate/1.73 sq M.predicted 82 mL/min/1.73m*2 Normal >60 [facility] Comment on above: Result Comment: Calc ulations of estimated GFR are performed using the 2020 CKD-EPI Study Refit equation without the race variable for the IDMS-Traceable creatinine methods. https://jasn.asnjournals.org/content/early/ASN.07220 18073 Performed By: #### 2 4321-2 #### RAPHAEL Blanco ([id number]) [facility] ([facility]) [address] [place] [address] Glucose [Mass/Vol] 142 mg/dL High 74-99 [facility] Comment on above: Performed By: #### 2 4321-2 #### RAPHAEL QUINTERO L ([id number]) [facility] ([facility]) [address] [place] [address] 13016 Potassium [Moles/Vol] 3.7 mmol/L Normal 3.5-5.3 [facility] Comment on above: Performed By: #### 2 4321-2 #### RAPHAEL QUINTERO L ([id number]) [facility] ([facility]) [address] [place] [address] 67779 Sodium [Moles/Vol] 135 mmol/L Low 136-145 [facility] Comment on above: Performed By: #### 2 4321-2 #### RAPHAEL QUINTERO L ([id number]) [facility] ([facility]) [address] [place] [address] 85766 Urea nitrogen [Mass/Vol] 18 mg/dL Normal 6-23 [facility] Comment on above: Performed By: #### 2 4321-2 #### RAPHAEL QUINTERO L ([id number]) [facility] ([facility]) [address] [place] [address] 34494 Blood type and Indirect anti body screen panel (Bld)on 01-29-2024 ABO group Nom (Bld) A [facility] Blood group antibody screen Ql Negative [facility] D Ag Ql (Bld) Positive [facility] Comment on above: 2nd ABO test require d. Order and Collect VERAB [facility] ABO group Nom (Bld) A Normal [facility] Comment on above: Performed By: #### 3 4532-2 #### RAPHAEL Blanco ([id number]) [facility] ([facility]) [address] [place] [address] Blood group antibody screen Ql Negative Normal [facility] Comment on above: Performed By: #### 3 4532-2 #### RAPHAEL Blanco ([id number]) [facility] ([facility]) [address] [place], [place] [address] D Ag Ql (Bld) Positive [facility] Comment on above: Result Comment: 2nd ABO test required. Order and Collect VERAB Performed By: #### 3 4532-2 #### RAPHAEL Blanco ([id number]) [facility] ([facility]) [address] [place] [address] CARDIAC CATHETERIZATION PROC EDUREon 01-29-2024 CARDIAC CATHETERIZATION PROCEDURE [facility], [employer], [address] [place] [address] Cardiovascular Catheterization Report Patient Name: ESME STEVEN Performing Physician: [id number] Kowalski MD Study Date: 01/29/2024 Verifying Physician: Elyssa Kowalski MD MRN/PID: [id number] Packager Head/Co-Scrub: Ordering Provider: [id number] KOWALSKI Date of /Age: 9 1960 / 63 years Packager Head: Gender: M Fellow: Bruno Almaguer MD Surgeon: [...] trans-septal puncture was with a versa cross (Clever), accessing the left atrium. The trans septal tract was then dilated with a Watchman FXD access sheath and the ICE probe was advanced through the dilated tract into the left atrium. Next, a 6 Turkmen angled pigtail was advanced through the delivery [...] CPT Codes: Perc left atrial appendage closure (LAAC)-98668 [id number] Bird Kowalski MD Performing Physician Final Normal [facility] CBC W Auto Differential pane l (Bld)on 01-29-2024 Basophils (Bld) [#/Vol] 0.04 10*3/uL [facility] Basophils/100 WBC (Bld) 0.4 % 0.0 - 2.0 % [facility] Eosinophils (Bld) [#/Vol] 0.02 10*3/uL [facility] Eosinophils/100 WBC (Bld) 0.2 % 0.0 - 6.0 % [facility] Erythrocyte distribution width (RBC) [Ratio] 11.8 % 11.5 - 14.5 % [facility] Hematocrit (Bld) [Volume fraction] 45.3 % 41.0 - 52.0 % [facility] Hemoglobin (Bld) [Mass/Vol] 15.6 g/dL 13.5 - 17.5 g/dL [facility] Immature granulocytes (Bld) [#/Vol] 0.09 10*3/uL [facility] Immature granulocytes/100 WBC (Bld) 0.9 % 0.0 - 0.9 % [facility] Comment on above: Immature Granulocyte Count (IG) includes promyelocytes, myelocytes and metamyelocytes but does not include bands. Percent differential counts (%) should be interpreted in the context of the absolute cell counts (cells/UL). Interpretation and review of laboratory results Abnormal [facility] Lymphocytes (Bld) [#/Vol] 1.14 10*3/uL Low [facility] Lymphocytes/100 WBC (Bld) 11 % 13.0 - 44.0 % [facility] MCH (RBC) [Entitic mass] 35.9 pg High 26.0 - 34.0 pg [facility] MCHC (RBC) [Mass/Vol] 34.4 g/dL 32.0 - 36.0 g/dL [facility] MCV (RBC) [Entitic vol] 104 fL High 80 - 100 fL [facility] Monocytes (Bld) [#/Vol] 0.74 10*3/uL [facility] Monocytes/100 WBC (Bld) 7.1 % 2.0 - 10.0 % [facility] Neutrophils (Bld) [#/Vol] 8.36 10*3/uL High [facility] Comment on above: Percent differential counts (%) should be interpreted in the context of the absolute cell counts (cells/uL). Neutrophils/100 WBC (Bld) 80.4 % 40.0 - 80.0 % [facility] Nucleated RBC/100 WBC (Bld) [Ratio] 0 % [facility] Platelets (Bld) [#/Vol] 143 10*3/uL [facility] RBC (Bld) [#/Vol] 4.35 10*6/uL [facility] WBC (Bld) [#/Vol] 10.4 10*3/uL [facility] Basophils (Bld) [#/Vol] 0.04 x10*3/uL Normal 0.00-0.10 [facility] Comment on above: Performed By: #### 5 7021-8 #### RAPHAEL Blanco ([id number]) [facility] ([facility]) [address] [place] [address] 99474 Basophils/100 WBC (Bld) 0.4 % Normal 0.0-2.0 [facility] Comment on above: Performed By: #### 5 7021-8 #### RAPHAEL Blanco ([id number]) [facility] ([facility]) [address] [place] [address] 66730 Eosinophils (Bld) [#/Vol] 0.02 x10*3/uL Normal 0.00-0.70 [facility] Comment on above: Performed By: #### 5 7021-8 #### RAPHAEL Blanco ([id number]) [facility] ([facility]) [address] [place] [address] 76388 Eosinophils/100 WBC (Bld) 0.2 % Normal 0.0-6.0 [facility] Comment on above: Performed By: #### 5 7021-8 #### RAPHAEL Blanco ([id number]) [facility] ([facility]) [address] [place] [address] 59245 Erythrocyte distribution width (RBC) [Ratio] 11.8 % Normal 11.5-14.5 [facility] Comment on above: Performed By: #### 5 7021-8 #### RAPHAEL Blanco ([id number]) [facility] ([facility]) [address] [place] [address] 56454 Hematocrit (Bld) [Volume fraction] 45.3 % Normal 41.0-52.0 [facility] Comment on above: Performed By: #### 5 7021-8 #### RAPHAEL BERRYTZER L ([id number]) [facility] ([facility]) [address] [place] [address] 18761 Hemoglobin (Bld) [Mass/Vol] 15.6 g/dL Normal 13.5-17.5 [facility] Comment on above: Performed By: #### 5 7021-8 #### RAPHAEL GUILLERMOMOTZER L ([id number]) [facility] ([facility]) [address] [place] [address] 55108 Immature granulocytes (Bld) [#/Vol] 0.09 x10*3/uL Normal 0.00-0.70 [facility] Comment on above: Performed By: #### 5 7021-8 #### RAPHAEL GUILLERMOMOTZER L ([id number]) [facility] ([facility]) [address] [place] [address] 22878 Immature granulocytes/100 WBC (Bld) 0.9 % Normal 0.0-0.9 [facility] Comment on above: Result Comment: Paulina ture Granulocyte Count (IG) includes promyelocytes, myelocytes and metamyelocytes but does not include bands. Percent differential counts (%) should be interpreted in the context of the absolute cell counts (cells/UL). Performed By: #### 5 7021-8 #### RAPHAEL Blanco ([id number]) [facility] ([facility]) [address] [place] [address] 46926 Lymphocytes (Bld) [#/Vol] 1.14 x10*3/uL Low 1.20-4.80 [facility] Comment on above: Performed By: #### 5 7021-8 #### RAPHAEL BERRYTZER L ([id number]) [facility] ([facility]) [address] [place] [address] 40568 Lymphocytes/100 WBC (Bld) 11.0 % Normal 13.0-44.0 [facility] Comment on above: Performed By: #### 5 7021-8 #### RAPHAEL GUILLERMOMOTZER L (51710) [facility] ([facility]) [address] [place] [address] MCH (RBC) [Entitic mass] 35.9 pg High 26.0-34.0 [facility] Comment on above: Performed By: #### 5 7021-8 #### RAPHAEL Blanco ([id number]) [facility] ([facility]) [address] [place] [address] MCHC (RBC) [Mass/Vol] 34.4 g/dL Normal 32.0-36.0 [facility] Comment on above: Performed By: #### 5 7021-8 #### RAPHAEL Blanco ([id number]) [facility] ([facility]) [address] [place] [address] MCV (RBC) [Entitic vol] 104 fL High 80-100 [facility] Comment on above: Performed By: #### 5 7021-8 #### RAPHAEL Blanco ([id number]) [facility] ([facility]) [address] [place] [address] Monocytes (Bld) [#/Vol] 0.74 x10*3/uL Normal 0.10-1.00 [facility] Comment on above: Performed By: #### 5 7021-8 #### RAPHAEL Blanco ([id number]) [facility] ([facility]) [address] [place] [address] Monocytes/100 WBC (Bld) 7.1 % Normal 2.0-10.0 [facility] Comment on above: Performed By: #### 5 7021-8 #### RAPHAEL Blanco ([id number]) [facility] ([facility]) [address] [place] [address] Neutrophils (Bld) [#/Vol] 8.36 x10*3/uL High 1.20-7.70 [facility] Comment on above: Result Comment: Perc ent differential counts (%) should be interpreted in the context of the absolute cell counts (cells/uL). Performed By: #### 5 7021-8 #### RAPHAEL Blanco ([id number]) [facility] ([facility]) [address] [place] [address] 31267 Neutrophils/100 WBC (Bld) 80.4 % Normal 40.0-80.0 [facility] Comment on above: Performed By: #### 5 7021-8 #### RAPHAEL Blanco ([id number]) [facility] ([facility]) [address] [place] [address] 67958 Nucleated RBC/100 WBC (Bld) [Ratio] 0.0 /100 WBCs Normal 0.0-0.0 [facility] Comment on above: Performed By: #### 5 7021-8 #### RAPHAEL QUINTERO L ([id number]) [facility] ([facility]) [address] [place] [address] 82825 Platelets (Bld) [#/Vol] 143 x10*3/uL Low 150-450 [facility] Comment on above: Performed By: #### 5 7021-8 #### RAPHAEL QUINTERO L ([id number]) [facility] ([facility]) [address] [place] [address] 56996 RBC (Bld) [#/Vol] 4.35 x10*6/uL Low 4.50-5.90 [facility] Comment on above: Performed By: #### 5 7021-8 #### RAPHAEL QUINTERO L ([id number]) [facility] ([facility]) [address] [place] [address] 36566 WBC (Bld) [#/Vol] 10.4 x10*3/uL Normal 4.4-11.3 [facility] Comment on above: Performed By: #### 5 7021-8 #### RAPHAEL QUINTERO L ([id number]) [facility] ([facility]) [address] [place] [address] WATCHMAN FULL CONTRASTon 01-29-2024 CT WATCHMAN FULL CONTRAST Interpreted By: Alonzo Holbrook, STUDY: CT WATCHMAN FULL CONTRAST; 01/29/2024 9:29 am INDICATION: Signs/Symptoms:A-fib, Pre-Watchman, MARIO Sizing, R/O MARIO Thrombus. ,I48.91 Unspecified atrial fibrillation (Multi) COMPARISON: None. ACCESSION NUMBER(S): [id number] ORDERING CLINICIAN: BIRD KOWALSKI TECHNIQUE: Using multi-detector [...] Alonzo Holbrook 01/29/2024 10:03 AM Dictation workstation: [id number] [facility] Comment on above: Order Comment: Lida l [...] Alonzo Holbrook 01/29/2024 10:03 AM Dictation workstation: [id number] Interpreted By: Alonzo Castellon, STUDY: CT WATCHMAN FULL CONTRAST; 01/29/2024 9:29 am INDICATION: Signs/Symptoms:A-fib, Pre-Watchman, MARIO Sizing, R/O MARIO Thrombus. ,I48.91 Unspecified atrial fibrillation (Multi) COMPARISON: None. ACCESSION NUMBER(S): [id number] ORDERING CLINICIAN: BIRD KOWALSKI TECHNIQUE: Using multi-detector [...] atrial fibrillation (Multi) COMPARISON: None. ACCESSION NUMBER(S): [id number] ORDERING CLINICIAN: BIRD KOWALSKI TECHNIQUE: Using multi-detector [...] Alonzo Holbrook 01/29/2024 10:03 AM Dictation workstation: [id number] [facility] Work Phone: Radiology Study observation (narrative) [facility] Work Phone: CT watchman full contrastOrd ered By: Alonzo Holbrook on 01-29-2024 [facility] Work Phone: Coagulation tissue factor in ducedon 01-29-2024 PT Coag (PPP) [Time] 11.0 s Normal 9.8-12.8 [facility] Comment on above: Performed By: #### 5 902-2 #### RAPHAEL Blanco ([id number]) [facility] ([facility]) [address] [place] [address] ECG 12 leadOrdered By: Aniceto Burk on 01-29-2024 Atrial Rate 71 BPM [facility] Work Phone: P [place] 20 degrees [facility] Work Phone: [phone] P Offset 191 ms [facility] Work Phone: [phone] P Onset 126 ms [facility] Work Phone: [phone] PA Interval 198 ms [facility] Work Phone: [phone] Q Onset 225 ms [facility] Work Phone: [phone] QRS Count 12 beats [facility] Work Phone: [phone] QRS Duration 114 ms [facility] Work Phone: [phone] QT Interval 430 ms [facility] Work Phone: [phone] QTC Calculation(Bazett) 467 ms [facility] Work Phone: [phone] QTC Fredericia 455 ms [facility] Work Phone: [phone] R [place] -10 degrees [facility] Work Phone: [phone] T [place] 114 degrees [facility] Work Phone: [phone] T Offset 440 ms [facility] Work Phone: [phone] Ventricular Rate 71 BPM [facility] Work Phone: [phone] [facility] Work Phone: [phone] ECG 12 leadon 01-29-2024 Sinus rhythm with occasional Premature ventricular complexes Inferior infarct , age undetermined Abnormal ECG No previous ECGs available Confirmed by Adrien Burk ([id number]) on 01/29/2024 4:23:52 PM MUSE Adrien Burk MD - 01/29/2024 Sinus rhythm with occasional Premature ventricular complexes Inferior infarct , age undetermined Abnormal ECG No previous ECGs available Confirmed by Adrien Burk ([id number]) on 01/29/2024 4:23:52 PM [facility] Work Phone: [phone] ECG 12-LEADon 01-29-2024 ECG 12-LEAD Ventricular Rate 71 Atrial Rate 71 P-R Interval 198 QRS Duration 114 Q-T Interval 430 QTC Calculation(Bazett) 467 P [place] 20 R [place] -10 T [place] 114 QRS Count 12 Q Onset 225 P Onset 126 P Offset 191 T Offset 440 QTC Fredericia 455 Diagnosis Sinus rhythm with occasional Premature ventricular complexes Inferior infarct , age undetermined Abnormal ECG No previous ECGs available Confirmed by Adrien Burk ([id number]) on 01/29/2024 4:23:52 PM Normal [facility] Magnesiumon 01-29-2024 Magnesium [Mass/Vol] 1.43 mg/dL Low 1.60 - 2.40 mg/dL [facility] Magnesium [Mass/Vol] 1.43 mg/dL Low 1.60-2.40 [facility] Comment on above: Performed By: #### 1 9123-9 #### RAPHAEL Blanco ([id number]) [facility] ([facility]) [address] [place] [address] No Panel Informationon 01-28 Interpretation and review of laboratory results Abnormal [facility] PT Coag (PPP) [Time]on 01-28 INR Coag (PPP) [Relative time] 1 {INR} 0.9 - 1.1 [facility] Interpretation and review of laboratory results Normal [facility] INR Coag (PPP) [Relative time] 1.0 Normal 0.9-1.1 [facility] Comment on above: Performed By: #### 5 902-2 #### RAPHAEL Blanco ([id number]) [facility] ([facility]) [address] [place] [address] Protime-INRon 01-29-2024 PT Coag (PPP) [Time] 11 s [facility] TRANSTHORACIC ECHO (TTE) RAMOS ITEDon 01-29-2024 TRANSTHORACIC ECHO (TTE) [facility], [address] [place] [address] and TRANSTHORACIC ECHOCARDIOGRAM REPORT Patient Name: ESME STEVEN Reading Physician: [id number] Haris Beverly MD Study Date: 01/29/2024 Ordering Provider: [id number] SAMMI LOREDO MRN/PID: [id number] Fellow: Nurse: Date of /Age: 9 1960 / 63 years Internet Manager: Tanisha VASQUEZ Gender: M Additional Staff: Height: 177.00 cm Admit Date: 01/29/2024 Weight: 110.68 kg Admission Status: Inpatient - Routine BSA / BMI: 2.26 m2 / 35.33 kg/m2 Blood Pressure: 138/84 mmHg Department Location: [facility] [employer] Study Type: TRANSTHORACIC ECHO (TTE) LIMITED Diagnosis/ICD: Presence of other cardiac implants and grafts-Z95.818 Indication: Post LAAO CPT Code: Echo Limited-78900 Patient History: Pertinent History: A-Fib, CAD, Hyperlipidemia [...] machine learning algorithm (EchoGo Heart Failure by [employer]), the analysis of the apical 4-chamber echocardiogram [...] 53 % LV EF Reported: 53 % [id number] Haris Beveryl MD Electronically signed on 01/29/2024 at 3:36:47 PM Final [facility] TRANSTHORACIC ECHO (TTE) LIMITED [facility], [address] [place] [address] and TRANSTHORACIC ECHOCARDIOGRAM REPORT Patient Name: ESME Fischer Physician: [id number] Savana Williamson MD Study Date: 01/29/2024 Ordering Provider: [id number] SAMMI LOREDO MRN/PID: [id number] Fellow: Nurse: Date of /Age: 9 1960 / 63 years Internet Manager: Angela rTan RDCS Gender: M Additional Staff: Height: 177.80 cm Admit Date: Weight: 110.68 kg Admission Status: Inpatient - Routine BSA / BMI: 2.27 m2 / 35.01 kg/m2 Blood Pressure: 121/71 mmHg Department Location: [facility] [employer] Study Type: TRANSTHORACIC ECHO (TTE) LIMITED Diagnosis/ICD: Encounter for other preprocedural examination-Z01.818 Indication: Pre LAAO CPT Code: Echo Limited-13316 Patient History: Pertinent History: Persistent afib, ICM, [...] however appears to have an inferior/inferolateral wall pyzt3ri abnormality. Left Atrium: The left atrium is [...] however appears to have an inferior/inferolateral wall uerk4qe abnormality. 4. The left atrium is enlarged. 5. There is moderate mitral annular calcification. 6. Limited TTE pre LAAO closure device placement. 7. No prior echocardiogram available for comparison. QUANTITATIVE DATA SUMMARY: AORTA MEASUREMENTS: Normal Ranges: Ao Sinus, d: 4.30 cm (2.1-3.5cm) [id number] Savana Williamson MD Electronically signed on 01/29/2024 at 3:21:38 PM Final Normal [facility] US Heart TransthoracicOrdere d By: Haris Beverly on 01-29-2024 LV EF 53 % [facility] Work Phone: [facility] Work Phone: US Heart Transthoracicon [facility], [address] [place] [address] and TRANSTHORACIC ECHOCARDIOGRAM REPORT Patient Name: ESME STEVEN Reading Physician: [id number] Haris Beverly MD Study Date: 01/29/2024 Ordering Provider: [id number] SAMMI LOREDO MRN/PID: [id number] Fellow: Nurse: Date of /Age: 9 1960 / 63 years Internet Manager: Tanisha VASQUEZ Gender: M Additional Staff: Height: 177.00 cm Admit Date: 01/29/2024 Weight: 110.68 kg Admission Status: Inpatient - Routine BSA / BMI: 2.26 m2 / 35.33 kg/m2 Blood Pressure: 138/84 mmHg Department Location: [facility] [employer] Study Type: TRANSTHORACIC ECHO (TTE) LIMITED Diagnosis/ICD: Presence of other cardiac implants and grafts-Z95.818 Indication: Post LAAO CPT Code: Echo Limited-92722 Patient History: Pertinent History: A-Fib, CAD, Hyperlipidemia [...] an FDA cleared automated machine learning algorithm (Sensbeat Heart Failure by [employer]), the analysis of the apical 4-chamber echocardiogram [...] 53 % LV EF Reported: 53 % [id number] Haris Beverly MD Electronically signed on 01/29/2024 at 3:36:47 PM Final Haris Serna MD - 01/29/2024 [facility], [address] [place] [address] and TRANSTHORACIC ECHOCARDIOGRAM REPORT Patient Name: ESME STEVEN Reading Physician: [id number] Haris Beverly MD Study Date: 01/29/2024 Ordering Provider: [id number] SAMMI LOREDO MRN/PID: [id number] Fellow: Nurse: Date of /Age: 9 1960 / 63 years Internet Manager: Tanisha VASQUEZ Gender: M Additional Staff: Height: 177.00 cm Admit Date: 01/29/2024 Weight: 110.68 kg Admission Status: Inpatient - Routine BSA / BMI: 2.26 m2 / 35.33 kg/m2 Blood Pressure: 138/84 mmHg Department Location: [facility] [employer] Study Type: TRANSTHORACIC ECHO (TTE) LIMITED Diagnosis/ICD: Presence of other cardiac implants and grafts-Z95.818 Indication: Post LAAO CPT Code: Echo Limited-55077 Patient History: Pertinent History: A-Fib, CAD, Hyperlipidemia [...] machine learning algorithm (EchoGo Heart Failure by [employer]), the analysis of the apical 4-chamber echocardiogram [...] 53 % LV EF Reported: 53 % [id number] Haris Beverly MD Electronically signed on 01/29/2024 at 3:36:47 PM Final [facility] Work Phone: [facility], [address] [place] [address] and TRANSTHORACIC ECHOCARDIOGRAM REPORT Patient Name: ESME Fischer Physician: [id number] Savana Williamson MD Study Date: 01/29/2024 Ordering Provider: [id number] SAMMI LOREDO MRN/PID: [id number] Fellow: Nurse: Date of /Age: 9 1960 / 63 years Internet Manager: Angela Tran RDCS Gender: M Additional Staff: Height: 177.80 cm Admit Date: Weight: 110.68 kg Admission Status: Inpatient - Routine BSA / BMI: 2.27 m2 / 35.01 kg/m2 Blood Pressure: 121/71 mmHg Department Location: [facility] [employer] Study Type: TRANSTHORACIC ECHO (TTE) LIMITED Diagnosis/ICD: Encounter for other preprocedural examination-Z01.818 Indication: Pre LAAO CPT Code: Echo Limited-65910 Patient History: Pertinent History: Persistent afib, ICM, [...] however appears to have an inferior/inferolateral wall [id number] abnormality. Left Atrium: The left atrium is [...] however appears to have an inferior/inferolateral wall wjum0vy abnormality. 4. The left atrium is enlarged. 5. There is moderate mitral annular calcification. 6. Limited TTE pre LAAO closure device placement. 7. No prior echocardiogram available for comparison. QUANTITATIVE DATA SUMMARY: AORTA MEASUREMENTS: Normal Ranges: Ao Sinus, d: 4.30 cm (2.1-3.5cm) [id number] Savana Williamson MD Electronically signed on 01/29/2024 at 3:21:38 PM Final Savana Weldon MD - 01/29/2024 [facility], [address] [place] [address] and TRANSTHORACIC ECHOCARDIOGRAM REPORT Patient Name: ESME TOLENTINON Reading Physician: [id number] Savana Williamson MD Study Date: 01/29/2024 Ordering Provider: [id number] SAMMI LOREDO MRN/PID: [id number] Fellow: Nurse: Date of /Age: 9 1960 / 63 years Internet Manager: Angela Tran RDCS Gender: M Additional Staff: Height: 177.80 cm Admit Date: Weight: 110.68 kg Admission Status: Inpatient - Routine BSA / BMI: 2.27 m2 / 35.01 kg/m2 Blood Pressure: 121/71 mmHg Department Location: [facility] [employer] Study Type: TRANSTHORACIC ECHO (TTE) LIMITED Diagnosis/ICD: Encounter for other preprocedural examination-Z01.818 Indication: Pre LAAO CPT Code: Echo Limited-51583 Patient History: Pertinent History: Persistent afib, ICM, [...] however appears to have an inferior/inferolateral wall bigl5sl abnormality. Left Atrium: The left atrium is [...] however appears to have an inferior/inferolateral wall xhyb2se abnormality. 4. The left atrium is enlarged. 5. There is moderate mitral annular calcification. 6. Limited TTE pre LAAO closure device placement. 7. No prior echocardiogram available for comparison. QUANTITATIVE DATA SUMMARY: AORTA MEASUREMENTS: Normal Ranges: Ao Sinus, d: 4.30 cm (2.1-3.5cm) [id number] Savana Williamson MD Electronically signed on 01/29/2024 at 3:21:38 PM Final [facility] Work Phone: US Heart TransthoracicOrdere d By: Savana Williamson on 01-29-2024 [facility] Work Phone: Automated basophil %Ordered By: Bird Kowalski on 01-24-2024 Basophils/100 WBC (Bld) 0.4 % Normal . [facility] Comment on above: Performed By: #### B MP, CBC ####[facility] [id number] Automated basophil countOrde red By: Bird Kowalski on 01-24-2024 Basophils (Bld) [#/Vol] 0.1 10*3/uL Normal 0.0-0.2 [facility] Comment on above: Result Comment: PERF ORMED BY: [facility] [address] [place] [address] PATHOLOGIST STAMP COLLECTOR ALAYNA CAPONE M.D. Performed By: #### B MP, CBC ####[address] Automated blood monocyte cou ntOrdered By: Bird Kowalski on 01-24-2024 Monocytes (Bld) [#/Vol] 0.7 10*3/uL Normal 0.0-0.8 [facility] Comment on above: Performed By: #### B MP, CBC ####[facility] [id number] Automated eosinophil %Ordere d By: Bird Kowalski on 01-24-2024 Eosinophils/100 WBC (Bld) 0.4 % Normal . [facility] Comment on above: Performed By: #### B MP, CBC ####[address] Automated eosinophil countOr dered By: Bird Kowalski on 01-24-2024 Eosinophils (Bld) [#/Vol] 0.1 10*3/uL Normal 0.0-0.45 [facility] Comment on above: Performed By: #### B MP, CBC ####[address] Automated monocyte %Ordered By: Bird Kowalski on 01-24-2024 Monocytes/100 WBC (Bld) 5.5 % Normal . [facility] Comment on above: Performed By: #### B MP, CBC ####[address] Automated neutrophil %Ordere d By: Bird Kowalski on 01-24-2024 Neutrophils/100 WBC (Bld) 82.3 % Normal . [facility] Comment on above: Performed By: #### B MP, CBC ####[address] Basic Metabolic Panelon 01-07 GFR/1.73 sq M.predicted MDRD (S/P/Bld) [Vol rate/Area] mL/min/{1.73_m2} Normal [facility] Comment on above: Performed By: #### B MP, CBC ####[address] Basophils Auto (Bld) [#/Vol] Ordered By: Bird Kowalski on 01-24-2024 Basophils (Bld) [#/Vol] Automated basophil count 0.0-0.2 [facility] Basophils/100 WBC Auto (Bld) Ordered By: Bird Kowalski on 01-24-2024 Basophils/100 WBC (Bld) Automated basophil % . [facility] Calcium [Mass/volume] in Ser um or PlasmaOrdered By: Bird Kowalski on 01-24-2024 Calcium [Mass/Vol] 9.6 mg/dL Normal 8.6-10.3 [facility] Comment on above: Result Comment: PERF ORMED BY: [facility] [address] [place] [id number] PATHOLOGIST STAMP COLLECTOR ALAYNA CAPONE M.D. Performed By: #### B MP, CBC ####[place] [address] [place] [id number] [facility] Calcium [Mass/Vol] Calcium [Mass/volume ] in Serum or Plasma 8.6-10.3 [facility] Carbon dioxide, total [Moles /volume] in Serum or PlasmaOrdered By: Bird Kowalski on 01-24-2024 CO2 [Moles/Vol] 28.4 mmol/L Normal 21.0-31.0 [facility] Comment on above: Performed By: #### B MP, CBC ####[place] [id number] [facility] CO2 [Moles/Vol] Carbon dioxide, tota l [Moles/volume] in Serum or Plasma 21.0-31.0 [facility] Chloride [Moles/volume] in S ursula or PlasmaOrdered By: Bird Kowalski on 01-24-2024 Chloride [Moles/Vol] 101 mmol/L Normal 98-107 [facility] Comment on above: Performed By: #### B MP, CBC ####[place] [id number] [facility] Chloride [Moles/Vol] Chloride [Moles/vol ume] in Serum or Plasma 98-107 [facility] Complete Blood Count Auto Di ffon 01-24-2024 Mean Corpuscular HGB Conc 34.3 g/dL Normal 32.5-35.6 [facility] Comment on above: Performed By: #### B MP, CBC ####[place] [id number] [facility] NRBC% 0.1 /100{WBC} Normal 0-0.5 [facility] Comment on above: Performed By: #### B MP, CBC ####[place] [id number] [facility] Creatinine [Mass/volume] in Serum or PlasmaOrdered By: Bird Kowalski on 01-24-2024 Creatinine [Mass/Vol] 0.98 mg/dL Normal 0.70-1.30 [facility] Comment on above: Performed By: #### B MP, CBC ####[facility] Creatinine [Mass/Vol] Creatinine [Mass/v olume] in Serum or Plasma 0.70-1.30 [facility] Eosinophils Auto (Bld) [#/Vo l]Ordered By: Bird Kowalski on 01-24-2024 Eosinophils (Bld) [#/Vol] Automated eosinophil count 0.0-0.45 [facility] Eosinophils/100 WBC Auto (Bl d)Ordered By: Bird Kowalski on 01-24-2024 Eosinophils/100 WBC (Bld) Automated eosinophil % . [facility] Erythrocyte distribution wid th Auto (RBC) [Ratio]Ordered By: Bird Kowalski on 01-24-2024 Erythrocyte distribution width (RBC) [Ratio] Erythrocyte distribution width [Ratio] by Automated count 12.0-14.8 [facility] Erythrocyte distribution wid th [Ratio] by Automated countOrdered By: Bird Kowalski on 01-24-2024 Erythrocyte distribution width (RBC) [Ratio] 13.3 % Normal 12.0-14.8 [facility] Comment on above: Performed By: #### B MP, CBC ####[address] Erythrocytes [#/volume] in B lood by Automated countOrdered By: Bird Kowalski on 01-24-2024 RBC (Bld) [#/Vol] 4.40 10*6/uL Normal 3.90-5.60 [facility] Comment on above: Performed By: #### B MP, CBC ####[facility] [id number] [place] [address] Glucose [Mass/volume] in Ser um or PlasmaOrdered By: Bird Kowalski on 01-24-2024 Glucose [Mass/Vol] 160 mg/dL High 70-100 [facility] Comment on above: ADA recommended refe rence rangeRandom Glucose Reference Range is dependent on time and content of last meal. Glucose of more than 200 mg/dL in a nonstressed, ambulatory subject supports the diagnosis of Diabetes Mellitus. Result Comment: [facility] Glucose Reference Range is dependent on time and content of last meal. Glucose of more than 200 mg/dL in a nonstressed, ambulatory subject supports the diagnosis of Diabetes Mellitus. ADA recommended reference range Performed By: #### B MP, CBC ####[address] Glucose [Mass/Vol] Glucose [Mass/volume ] in Serum or Plasma High 70-100 [facility] Comment on above: ADA recommended refe rence rangeRandom Glucose Reference Range is dependent on time and content of last meal. Glucose of more than 200 mg/dL in a nonstressed, ambulatory subject supports the diagnosis of Diabetes Mellitus. Hematocrit Auto (Bld) [Volum e fraction]Ordered By: Bird Kowalski on 01-24-2024 Hematocrit (Bld) [Volume fraction] Hematocrit [Volume Fraction] of Blood by Automated count 38.8-50.0 [facility] Hematocrit [Volume Fraction] of Blood by Automated countOrdered By: Bird Kowalski on 01-24-2024 Hematocrit (Bld) [Volume fraction] 46.5 % Normal 38.8-50.0 [facility] Comment on above: Performed By: #### B VINH, CBC ####[place] [id number] [facility] Hemoglobin [Mass/volume] in BloodOrdered By: Bird Kowalski on 01-24-2024 Hemoglobin (Bld) [Mass/Vol] 16.0 g/dL Normal 13.0-17.0 [facility] Comment on above: Performed By: #### B MP, CBC ####[place] [id number] [facility] Hemoglobin (Bld) [Mass/Vol] Hemoglobin [Mass/volume] in Blood 13.0-17.0 [facility] Leukocytes [#/volume] correc collins for nucleated erythrocytes in Blood by Automated counOrdered By: Bird Kowalski on 10-17-2024 WBC corrected for nucl RBC Auto (Bld) [#/Vol] 12.6 10*3/uL High 4.1-10.5 [facility] WBC corrected for nucl RBC Auto (Bld) [#/Vol] Leukocytes [#/volume] corrected for nucleated erythrocytes in Blood by Automated coun High 4.1-10.5 [facility] Leukocytes [#/volume] in Blo od by Automated countOrdered By: Bird Kowalski on 01-24-2024 WBC (Bld) [#/Vol] 12.6 10*3/uL High 4.1-10.5 [facility] Comment on above: Performed By: #### B MP, CBC ####[facility] [id number] Lymphocytes Auto (Bld) [#/Vo l]Ordered By: Bird Kowalski on 01-24-2024 Lymphocytes (Bld) [#/Vol] Lymphocytes [#/volume] in Blood by Automated count 1.00-4.8 [facility] Lymphocytes [#/volume] in Bl ood by Automated countOrdered By: Bird Kowalski on 01-24-2024 Lymphocytes (Bld) [#/Vol] 1.4 10*3/uL Normal 1.00-4.8 [facility] Comment on above: Performed By: #### B MP, CBC ####[facility] [id number] [place] [address] Lymphocytes/100 WBC Auto (Bl d)Ordered By: Bird Kowalski on 01-24-2024 Lymphocytes/100 WBC (Bld) Lymphocytes/100 leukocytes in Blood by Automated count . [facility] Lymphocytes/100 leukocytes i n Blood by Automated countOrdered By: Bird Kowalski on 01-24-2024 Lymphocytes/100 WBC (Bld) 11.4 % Normal . [facility] Comment on above: Performed By: #### B MP, CBC ####[facility] [id number] [place] [address] MCH Auto (RBC) [Entitic mass ]Ordered By: Bird Kowalski on 01-24-2024 MCH (RBC) [Entitic mass] MCH [Entitic mass] by Automated count High 27.5-35.2 [facility] MCH [Entitic mass] by Automa collins countOrdered By: Bird Kowalski on 01-24-2024 MCH (RBC) [Entitic mass] 36.3 pg High 27.5-35.2 [facility] Comment on above: Performed By: #### B MP, CBC ####[place] [address] [place] [id number] [facility] MCHC Auto (RBC) [Mass/Vol]Or dered By: Bird Kowalski on 01-24-2024 MCHC (RBC) [Mass/Vol] 34.3 g/dL 32.5-35.6 [facility] MCHC (RBC) [Mass/Vol] MCHC [Mass/volume] by Automated count 32.5-35.6 [facility] MCV Auto (RBC) [Entitic vol] Ordered By: Bird Kowalski on 01-24-2024 MCV (RBC) [Entitic vol] MCV [Entitic volume] by Automated count [facility] 83.5-101 [facility] MCV [Entitic volume] by Auto mated countOrdered By: Bird Kowalski on 01-24-2024 MCV (RBC) [Entitic vol] 105.8 fL [facility] 83.5-101 [facility] Comment on above: Performed By: #### B MP, CBC ####[place] [address] [place] [id number] [facility] Monocytes Auto (Bld) [#/Vol] Ordered By: Bird Kowalski on 01-24-2024 Monocytes (Bld) [#/Vol] Automated blood monocyte count 0.0-0.8 [facility] Monocytes/100 WBC Auto (Bld) Ordered By: Bird Kowalski on 01-24-2024 Monocytes/100 WBC (Bld) Automated monocyte % . [facility] Neutrophils Auto (Bld) [#/Vo l]Ordered By: Bird Kowalski on 01-24-2024 Neutrophils (Bld) [#/Vol] Neutrophils [#/volume] in Blood by Automated count High 1.8-7.7 [facility] Neutrophils [#/volume] in Bl ood by Automated countOrdered By: Bird Kowalski on 01-24-2024 Neutrophils (Bld) [#/Vol] 10.4 10*3/uL High 1.8-7.7 [facility] Comment on above: Performed By: #### B MP, CBC ####[facility] [id number] [place] [id number] [facility] Neutrophils/100 WBC Auto (Bl d)Ordered By: Bird Kowalski on 01-24-2024 Neutrophils/100 WBC (Bld) Automated neutrophil % . [facility] No Panel InformationOrdered By: Bird Kowalski on 01-24-2024 Estimated GFR (CKD-EPI) > 60.0 mL/Min [facility] Creatinine Clearance (Chem N/A [facility] Nucleated erythrocytes [Pres ence] in Blood by Automated countOrdered By: Bird Kowalski on 01-24-2024 Nucleated RBC Auto Ql (Bld) 0.1 /100{WBC} 0-0.5 [facility] Nucleated RBC Auto Ql (Bld) Nucleated erythrocytes [Presence] in Blood by Automated count 0-0.5 [facility] Platelet mean volume Auto (B ld) [Entitic vol]Ordered By: Bird Kowalski on 01-24-2024 Platelet mean volume (Bld) [Entitic vol] Platelet mean volume [Entitic volume] in Blood by Automated count High 6.6-10.1 [facility] Platelet mean volume [Entiti c volume] in Blood by Automated countOrdered By: Bird Kowalski on 01-24-2024 Platelet mean volume (Bld) [Entitic vol] 10.2 fL High 6.6-10.1 [facility] Comment on above: Performed By: #### B MP, CBC ####[facility] [id number] [place] [address] [facility] Platelets Auto (Bld) [#/Vol] Ordered By: Bird Kowalski on 01-24-2024 Platelets (Bld) [#/Vol] Platelets [#/volume] in Blood by Automated count 150-450 [facility] Platelets [#/volume] in Bloo d by Automated countOrdered By: Bird Kowalski on 01-24-2024 Platelets (Bld) [#/Vol] 155 10*3/uL Normal 150-450 [facility] Comment on above: Performed By: #### B MP, CBC ####[place] [address] [place] [id number] [facility] Potassium [Moles/volume] in Serum or PlasmaOrdered By: Bird Kowalski on 01-24-2024 Potassium [Moles/Vol] 4.3 mmol/L Normal 3.5-5.1 [facility] Comment on above: Performed By: #### B MP, CBC ####[place] [id number] [facility] Potassium [Moles/Vol] Potassium [Moles/v olume] in Serum or Plasma 3.5-5.1 [facility] RBC Auto (Bld) [#/Vol]Ordere d By: Bird Kowalski on 01-24-2024 RBC (Bld) [#/Vol] Erythrocytes [#/volu me] in Blood by Automated count 3.90-5.60 [facility] Serum or plasma anion gap de terminationOrdered By: Bird Kowalski on 01-24-2024 Anion gap [Moles/Vol] 10.9 mmol/L Normal 6.0-15.0 [facility] Comment on above: Performed By: #### B MP, CBC ####[place] [id number] [facility] Anion gap [Moles/Vol] Serum or plasma an ion gap determination 6.0-15.0 [facility] Sodium [Moles/volume] in Ser um or PlasmaOrdered By: Bird Kowalski on 01-24-2024 Sodium [Moles/Vol] 136 mmol/L Normal 136-145 [facility] Comment on above: Performed By: #### B MP, CBC ####[place] [id number] [facility] Sodium [Moles/Vol] Sodium [Moles/volume ] in Serum or Plasma 136-145 [facility] Urea nitrogen [Mass/volume] in Serum or PlasmaOrdered By: Bird Kowalski on 01-24-2024 Urea nitrogen [Mass/Vol] 20 mg/dL Normal 7-25 [facility] Comment on above: Performed By: #### B MP, CBC ####[facility] [id number] [place] [id number] [facility] Urea nitrogen [Mass/Vol] Urea nitrogen [Mass/volume] in Serum or Plasma 10-31 [facility] WBC Auto (Bld) [#/Vol]Ordere d By: Bird Kowalski on 01-24-2024 WBC (Bld) [#/Vol] Leukocytes [#/volume ] in Blood by Automated count High 4.1-10.5 [facility] CNCOon 12-18-2023 CNCO Letter Text Normal [facility] Basophils Auto (Bld) [#/Vol] on 11-21-2023 Basophils (Bld) [#/Vol] 0.1 10 3/uL 0.0-0.1 [facility] Basophils/100 WBC Auto (Bld) on 11-21-2023 Basophils/100 WBC (Bld) 0.7 % 0.2-2.0 [facility] Cholesterol in LDL Calc [Mas s/Vol]on 11-21-2023 Cholesterol in LDL [Mass/Vol] 73.0 mg/dL [facility] Comment on above: <100 mg/dl [id number] 0-129 mg/dl NEAR OR ABOVE [id number] mg/dl BORDERLINE [id number] mg/dl HIGH>190 mg/dl VERY HIGH Cholesterol in VLDL Calc [Ma ss/Vol]on 11-21-2023 Cholesterol in VLDL [Mass/Vol] 15.0 mg/dL [facility] Eosinophils/100 WBC Auto (Bl d)on 11-21-2023 Eosinophils/100 WBC (Bld) 1.1 % 0.9-7.0 [facility] Erythrocyte distribution wid th Auto (RBC) [Ratio]on 11-21-2023 Erythrocyte distribution width (RBC) [Ratio] 13.2 % 11.0-15.0 [facility] Estimated glomerular filtrat ion rate (GFR) non- Americanon 11-21-2023 GFR/1.73 sq M.predicted among non-blacks MDRD (S/P/Bld) [Vol rate/Area] mL/min/{1.73_m2} >=60 [facility] Globulin Calc (S) [Mass/Vol] on 11-21-2023 Globulin (S) [Mass/Vol] 3.2 g/dL [facility] Hematocrit Auto (Bld) [Volum e fraction]on 11-21-2023 Hematocrit (Bld) [Volume fraction] 43.6 % 42.0-54.0 [facility] Hemoglobin [Mass/volume] in Bloodon 11-21-2023 Hemoglobin (Bld) [Mass/Vol] 15.2 g/dL 14.0-18.0 [facility] Laboratory - Chemistry and C hemistry - challengeon 11-21-2023 Albumin [Mass/Vol] 3.4 g/dL 3.4-5.0 [facility] ALP [Catalytic activity/Vol] 53 U/L 46-116 [facility] ALT [Catalytic activity/Vol] 48 U/L 16-63 [facility] AST [Catalytic activity/Vol] 19 U/L 15-37 [facility] Bilirubin [Mass/Vol] 0.7 mg/dL 0.2-1.0 [facility] Calcium [Mass/Vol] 8.6 mg/dL 8.5-10.1 [facility] Chloride [Moles/Vol] 103 mmol/L 98-107 [facility] Cholesterol [Mass/Vol] 141 mg/dL <=200 [facility] Cholesterol in HDL [Mass/Vol] 53 mg/dL 40-60 [facility] Comment on above: > or =60 mg/dl - LOW CARDIOVASCULAR RISK<40 mg/dl - HIGH CARDIOVASCULAR RISK CO2 [Moles/Vol] 29.6 mmol/L 21.0-32.0 [facility] Creatinine [Mass/Vol] 0.87 mg/dL 0.70-1.30 [facility] GFR/1.73 sq M.predicted MDRD (S/P/Bld) [Vol rate/Area] mL/min/{1.73_m2} >=60 [facility] Glucose [Mass/Vol] 113 mg/dL High 74-106 [facility] Potassium [Moles/Vol] 4.3 mmol/L 3.5-5.1 [facility] Protein [Mass/Vol] 6.6 g/dL 6.4-8.2 [facility] Sodium [Moles/Vol] 138 mmol/L 136-145 [facility] Triglyceride [Mass/Vol] 75 mg/dL <=150 [facility] TSH Qn 1.694 m[IU]/L 0.358-3.74 0 [facility] Urea nitrogen [Mass/Vol] 19.0 mg/dL High 7.0-18.0 [facility] Urea nitrogen/Creatinine [Mass ratio] 21.8 mg/mg [facility] Laboratory - Hematology and Cell countson 11-21-2023 Immature granulocytes/100 WBC (Bld) 1.3 % High 0.0-0.5 [facility] Leukocytes [#/volume] correc collins for nucleated erythrocytes in Blood by Automated counon 11-21-2023 WBC corrected for nucl RBC Auto (Bld) [#/Vol] 11.4 10 3/uL High 4.0-11.0 [facility] Lymphocytes Auto (Bld) [#/Vo l]on 11-21-2023 Lymphocytes (Bld) [#/Vol] 2.8 10 3/uL 1.2-3.8 [facility] Lymphocytes/100 WBC Auto (Bl d)on 11-21-2023 Lymphocytes/100 WBC (Bld) 24.3 % 20.5-60.0 [facility] MCH Auto (RBC) [Entitic mass ]on 11-21-2023 MCH (RBC) [Entitic mass] 36.5 pg High 25.9-34.0 [facility] MCHC Auto (RBC) [Mass/Vol]on 11-21-2023 MCHC (RBC) [Mass/Vol] 34.9 g/dL 29.9-35.2 [facility] MCV Auto (RBC) [Entitic vol] on 11-21-2023 MCV (RBC) [Entitic vol] 104.6 fL High 80.0-94.0 [facility] Monocytes Auto (Bld) [#/Vol] on 11-21-2023 Monocytes (Bld) [#/Vol] 1.0 10 3/uL High 0.3-0.8 [facility] Monocytes/100 WBC Auto (Bld) on 11-21-2023 Monocytes/100 WBC (Bld) 8.5 % 1.7-12.0 [facility] Neutrophils Auto (Bld) [#/Vo l]on 11-21-2023 Neutrophils (Bld) [#/Vol] 7.3 10 3/uL High 1.4-6.5 [facility] Neutrophils/100 WBC Auto (Bl d)on 11-21-2023 Neutrophils/100 WBC (Bld) 64.1 % 43.0-75.0 [facility] No Panel Informationon 11-20 Eosinophils # (Auto) 0.1 10 3/uL 0.0-0.7 [facility] Immature Granulocyte # (Auto) 0.15 10 3/uL High 0.00-0.03 [facility] Prostate Specific Antigen Screen 0.48 ng/mL <=4.00 [facility] Platelet mean volume Auto (B ld) [Entitic vol]on 11-21-2023 Platelet mean volume (Bld) [Entitic vol] 10.6 fL 9.5-13.5 [facility] Platelets Auto (Bld) [#/Vol] on 11-21-2023 Platelets (Bld) [#/Vol] 180 10 3/uL 150-450 [facility] RBC Auto (Bld) [#/Vol]on RBC (Bld) [#/Vol] 4.17 10 6/uL Low 4.70-6.10 [facility] Serum or plasma albumin/glob ulin mass ratioon 11-21-2023 Albumin/Globulin [Mass ratio] 1.1 {ratio} [facility] Serum or plasma anion gap de terminationon 11-21-2023 Anion gap [Moles/Vol] 9.7 mmol/L [facility] Serum or plasma total choles terol/high density lipoprotein (HDL) cholesterol mass orin 11-21-2023 Cholesterol.total/Chol esterol in HDL [Mass ratio] 2.7 {ratio} [facility] Comment on above: 3.3 - 4.4 LOW RISK4. 4 - 7.1 AVERAGE RISK7.1 - 11.0 MODERATE RISK>11.0 [facility] Laboratory - Hematology and Cell countson 09-05-2023 ESR (Bld) [Velocity] 2 mm/h 0-15 [facility] No Panel Informationon 09-04 C-Reactive Protein, Quantitative 0.8 mg/dL <0.9 [facility] Basophils Auto (Bld) [#/Vol] Ordered By: Elliott Talley on 09-01-2023 Basophils (Bld) [#/Vol] 0.0 10*3/uL 0.0-0.2 [facility] Basophils/100 WBC Auto (Bld) Ordered By: Elliott Talley on 09-01-2023 Basophils/100 WBC (Bld) 0.5 % . [facility] Eosinophils Auto (Bld) [#/Vo l]Ordered By: Elliottoliver Talley on 09-01-2023 Eosinophils (Bld) [#/Vol] 0.1 10*3/uL 0.0-0.45 [facility] Eosinophils/100 WBC Auto (Bl d)Ordered By: Elliottoliver Talley on 09-01-2023 Eosinophils/100 WBC (Bld) 0.8 % . [facility] Erythrocyte distribution wid th Auto (RBC) [Ratio]Ordered By: Elliott Talley on 09-01-2023 Erythrocyte distribution width (RBC) [Ratio] 15.2 % High 12.0-14.8 [facility] Hematocrit Auto (Bld) [Volum e fraction]Ordered By: Elliott Talley on 09-01-2023 Hematocrit (Bld) [Volume fraction] 47.9 % 38.8-50.0 [facility] Hemoglobin [Mass/volume] in BloodOrdered By: Elliottoliver Talley on 09-01-2023 Hemoglobin (Bld) [Mass/Vol] 16.1 g/dL 13.0-17.0 [facility] Leukocytes [#/volume] correc collins for nucleated erythrocytes in Blood by Automated counOrdered By: Elliott Talley on 09-01-2023 WBC corrected for nucl RBC Auto (Bld) [#/Vol] 7.6 10*3/uL 4.1-10.5 [facility] Lymphocytes Auto (Bld) [#/Vo l]Ordered By: Elliott Talley on 09-01-2023 Lymphocytes (Bld) [#/Vol] 1.0 10*3/uL 1.00-4.8 [facility] Lymphocytes/100 WBC Auto (Bl d)Ordered By: Elliott Talley on 09-01-2023 Lymphocytes/100 WBC (Bld) 13.5 % . [facility] MCH Auto (RBC) [Entitic mass ]Ordered By: Elliott Talley on 09-01-2023 MCH (RBC) [Entitic mass] 34.6 pg 27.5-35.2 [facility] MCHC Auto (RBC) [Mass/Vol]Or dered By: Elliott Talley on 09-01-2023 MCHC (RBC) [Mass/Vol] 33.7 g/dL 32.5-35.6 [facility] MCV Auto (RBC) [Entitic vol] Ordered By: Elliott Talley on 09-01-2023 MCV (RBC) [Entitic vol] 102.8 fL High 83.5-101 [facility] Monocytes Auto (Bld) [#/Vol] Ordered By: Elliott Talley on 09-01-2023 Monocytes (Bld) [#/Vol] 0.5 10*3/uL 0.0-0.8 [facility] Monocytes/100 WBC Auto (Bld) Ordered By: Elliott Talley on 09-01-2023 Monocytes/100 WBC (Bld) 6.4 % . [facility] Neutrophils Auto (Bld) [#/Vo l]Ordered By: Elliott Talley on 09-01-2023 Neutrophils (Bld) [#/Vol] 6.0 10*3/uL 1.8-7.7 [facility] Neutrophils/100 WBC Auto (Bl d)Ordered By: Elliott Talley on 09-01-2023 Neutrophils/100 WBC (Bld) 78.8 % . [facility] Nucleated erythrocytes [Pres ence] in Blood by Automated countOrdered By: Elliott Talley on 09-01-2023 Nucleated RBC Auto Ql (Bld) 0.0 /100{WBC} 0-0.5 [facility] Platelet mean volume Auto (B ld) [Entitic vol]Ordered By: Elliott Talley on 09-01-2023 Platelet mean volume (Bld) [Entitic vol] 9.1 fL 6.6-10.1 [facility] Platelets Auto (Bld) [#/Vol] Ordered By: Elliott Talley on 09-01-2023 Platelets (Bld) [#/Vol] 119 10*3/uL Low 150-450 [facility] RBC Auto (Bld) [#/Vol]Ordere d By: Elliott Talley on 09-01-2023 RBC (Bld) [#/Vol] 4.66 10*6/uL 3.90-5.60 [facility] WBC Auto (Bld) [#/Vol]Ordere d By: Elliott Talley on 09-01-2023 WBC (Bld) [#/Vol] 7.6 10*3/uL 4.1-10.5 [facility] Activated partial thrombopla stin time (aPTT) in platelet poor plasma by coagulation aOrdered By: Elliott Talley on 08-31-2023 aPTT Coag (PPP) [Time] 27.6 s 25.1-36.5 [facility] Comment on above: A hematocrit value g reater than 55% may lead to inaccurate results in coagulation testing. Patients having hematocrit values >55% require a special collection tube for coagulation studies. Please contact the laboratory at [phone] for redraw instructions. Alanine aminotransferase [En zymatic activity/volume] in Serum or PlasmaOrdered By: Elliott Talley on 08-31-2023 ALT [Catalytic activity/Vol] 33 U/L 7-52 [facility] Albumin [Mass/volume] in Ser um or Plasma by Bromocresol green (BCG) dye binding methoOrdered By: Elliott Talley on 08-31-2023 Albumin BCG dye [Mass/Vol] 3.5 g/dL 3.5-5.7 [facility] Alkaline phosphatase [Enzyma tic activity/volume] in Serum or PlasmaOrdered By: Elliott Talley on 08-31-2023 ALP [Catalytic activity/Vol] 39 U/L 34-104 [facility] Aspartate aminotransferase [ Enzymatic activity/volume] in Serum or PlasmaOrdered By: Elliott Talley on 08-31-2023 AST [Catalytic activity/Vol] 19 U/L 13-39 [facility] Bilirubin.total [Mass/volume ] in Serum or PlasmaOrdered By: Elliott Talley on 08-31-2023 Bilirubin [Mass/Vol] 1.3 mg/dL High 0.3-1.0 [facility] Comment on above: Samples from patient s who have taken Naproxen have shown spurious elevation in Total Bilirubin levels. A metabolite of Naproxen, O-desmethylnaproxen, has been shown to interfere with the Jayro-Henrik method for measuring Total Bilirubin. Calcium [Mass/volume] in Ser um or PlasmaOrdered By: Elliott Talley on 08-31-2023 Calcium [Mass/Vol] 8.6 mg/dL 8.6-10.3 [facility] Carbon dioxide, total [Moles /volume] in Serum or PlasmaOrdered By: Elliott Talley on 08-31-2023 CO2 [Moles/Vol] 29.2 mmol/L 21.0-31.0 [facility] Chloride [Moles/volume] in S ursula or PlasmaOrdered By: Elliott Talley on 08-31-2023 Chloride [Moles/Vol] 104 mmol/L 98-107 [facility] Creatinine [Mass/volume] in Serum or PlasmaOrdered By: Elliott Talley on 08-31-2023 Creatinine [Mass/Vol] 1.05 mg/dL 0.70-1.30 [facility] Globulin Calc (S) [Mass/Vol] Ordered By: Elliott Talley on 08-31-2023 Globulin (S) [Mass/Vol] 2.1 g/dL [facility] Glucose [Mass/volume] in Ser um or PlasmaOrdered By: Elliott Talley on 08-31-2023 Glucose [Mass/Vol] 101 mg/dL High 70-100 [facility] Comment on above: ADA recommended refe rence rangeRandom Glucose Reference Range is dependent on time and content of last meal. Glucose of more than 200 mg/dL in a nonstressed, ambulatory subject supports the diagnosis of Diabetes Mellitus. INR in Platelet poor plasma by Coagulation assayOrdered By: Elliott Talley on 08-31-2023 INR Coag (PPP) [Relative time] 1.1 {INR} [facility] Comment on above: INR Therapeutic Rang [...] on 08-31-2023 Magnesium [Mass/Vol] 2.0 mg/dL 1.9-2.7 [facility] No Panel InformationOrdered By: Elliott Talley on 08-31-2023 Estimated GFR (CKD-EPI) > 60.0 mL/Min [facility] Creatinine Clearance (Chem 90.65 [facility] Potassium [Moles/volume] in Serum or PlasmaOrdered By: Elliott Talley on 08-31-2023 Potassium [Moles/Vol] 4.4 mmol/L 3.5-5.1 [facility] Protein [Mass/volume] in Ser um or PlasmaOrdered By: Elliott Talley on 08-31-2023 Protein [Mass/Vol] 5.6 g/dL Low 6.4-8.9 [facility] Prothrombin time (PT)Ordered By: Elliott Talley on 08-31-2023 PT Coag (PPP) [Time] 13.1 s High 9.0-12.9 [facility] Comment on above: A hematocrit value g reater than 55% may lead to inaccurate results in coagulation testing. Patients having hematocrit values >55% require a special collection tube for coagulation studies. Please contact the laboratory at [phone] for redraw instructions. Random cortisol measurementO rdered By: Elliott Talley on 08-31-2023 Cortisol [Mass/Vol] 9.4 ug/dL [facility] Comment on above: [facility] Laboratory painter and method:BERTIN UNICEL DXI, POLYCLONAL ANTIBODY CORTISOL ASSAY.Reference range: AM 6 - 24 ug/dl PM <10 ug/dl Serum or plasma albumin/glob ulin mass ratioOrdered By: Elliott Talley on 08-31-2023 Albumin/Globulin [Mass ratio] 1.7 {ratio} [facility] Serum or plasma anion gap de terminationOrdered By: Elliott Talley on 08-31-2023 Anion gap [Moles/Vol] 9.2 mmol/L 6.0-15.0 [facility] Sodium [Moles/volume] in Ser um or PlasmaOrdered By: Elliott Talley on 08-31-2023 Sodium [Moles/Vol] 138 mmol/L 136-145 [facility] Urea nitrogen [Mass/volume] in Serum or PlasmaOrdered By: Elliott Talley on 08-31-2023 Urea nitrogen [Mass/Vol] 15 mg/dL 10-31 [facility] Activated partial thrombopla stin time (aPTT) in platelet poor plasma by coagulation aOrdered By: Hermes Velez on 08-30-2023 aPTT Coag (PPP) [Time] 25.5 s 25.1-36.5 [facility] Comment on above: A hematocrit value g reater than 55% may lead to inaccurate results in coagulation testing. Patients having hematocrit values >55% require a special collection tube for coagulation studies. Please contact the laboratory at [phone] for redraw instructions. Alanine aminotransferase [En zymatic activity/volume] in Serum or PlasmaOrdered By: Hermes Velez on 08-30-2023 ALT [Catalytic activity/Vol] 44 U/L [facility] Albumin [Mass/volume] in Ser um or Plasma by Bromocresol green (BCG) dye binding methoOrdered By: Hermes Velez on 08-30-2023 Albumin BCG dye [Mass/Vol] 4.2 g/dL 3.5-5.7 [facility] Alkaline phosphatase [Enzyma tic activity/volume] in Serum or PlasmaOrdered By: Hermes Velez on 08-30-2023 ALP [Catalytic activity/Vol] 46 U/L 34-104 [facility] Aspartate aminotransferase [ Enzymatic activity/volume] in Serum or PlasmaOrdered By: Hermes Velez on 08-30-2023 AST [Catalytic activity/Vol] 27 U/L 13-39 [facility] Bacterial blood cultureOrder ed By: Hermes Velez on 08-30-2023 Bacteria identified Cx Nom (Bld) NO GROWTH 5 DAYS [facility] Basophils Auto (Bld) [#/Vol] Ordered By: Hermes Velez on 08-30-2023 Basophils (Bld) [#/Vol] 0.1 10*3/uL 0.0-0.2 [facility] Basophils/100 WBC Auto (Bld) Ordered By: Hermes Velez on 08-30-2023 Basophils/100 WBC (Bld) 0.8 % . [facility] Bilirubin Test strip Ql (U)O rdered By: Hermes Velez on 08-30-2023 Bilirubin Ql (U) Negative Negative [facility] Bilirubin.direct [Mass/volum e] in Serum or PlasmaOrdered By: Hermes Velez on 08-30-2023 Bilirubin.direct [Mass/Vol] 0.20 mg/dL High 0.03-0.18 [facility] Bilirubin.total [Mass/volume ] in Serum or PlasmaOrdered By: Hremes eVlez on 08-30-2023 Bilirubin [Mass/Vol] 0.9 mg/dL 0.3-1.0 [facility] COVID CepheidOrdered By: Rodney Suresh on 08-30-2023 SARS-CoV-2 (COVID-19) Ab IA Ql Negative Negative [facility] Comment on above: This is a duplicate [employer] CoV-2/Flu/RSV Plus RNA by RT-PCR result to be used for statistical tracking purpose only. SARS-CoV-2 (COVID-19) RNA ROSIE+probe Ql (Unsp spec) [facility] COVID-19 Detected/Not Detect edOrdered By: Elliottoliver Talley on 08-30-2023 SARS-CoV-2 (COVID-19) RNA ROSIE+non-probe Ql (Nph) Not detected Not Detecte [facility] Comment on above: This is a duplicate RP2.1 COVID (PCR) result to be used for statistical tracking purpose only. Calcium [Mass/volume] in Ser um or PlasmaOrdered By: Hermes Velez on 08-30-2023 Calcium [Mass/Vol] 9.3 mg/dL 8.6-10.3 [facility] Carbon dioxide, total [Moles /volume] in Serum or PlasmaOrdered By: Hermes Velez on 08-30-2023 CO2 [Moles/Vol] 25.1 mmol/L 21.0-31.0 [facility] Chloride [Moles/volume] in S ursula or PlasmaOrdered By: Hermes Velez on 08-30-2023 Chloride [Moles/Vol] 100 mmol/L 98-107 [facility] Color Auto (U)Ordered By: Grayson red Rosie on 08-30-2023 Color (U) Yellow Yellow [facility] Creatine kinase [Enzymatic a ctivity/volume] in Serum or PlasmaOrdered By: Hermes Velez on 08-30-2023 CK [Catalytic activity/Vol] 37 U/L 30-223 [facility] Creatinine [Mass/volume] in Serum or PlasmaOrdered By: Hermes Velez on 08-30-2023 Creatinine [Mass/Vol] 1.11 mg/dL 0.70-1.30 [facility] Eosinophils Auto (Bld) [#/Vo l]Ordered By: Hermes Velez on 08-30-2023 Eosinophils (Bld) [#/Vol] 0.0 10*3/uL 0.0-0.45 [facility] Eosinophils/100 WBC Auto (Bl d)Ordered By: Hermes Velez on 08-30-2023 Eosinophils/100 WBC (Bld) 0.1 % . [facility] Erythrocyte distribution wid th Auto (RBC) [Ratio]Ordered By: Hermes Velez on 08-30-2023 Erythrocyte distribution width (RBC) [Ratio] 15.1 % 12.0-14.8 [facility] Globulin Calc (S) [Mass/Vol] Ordered By: Hermes Velez on 08-30-2023 Globulin (S) [Mass/Vol] 2.8 g/dL [facility] Glucose [Mass/volume] in Ser um or PlasmaOrdered By: Hermes Velez on 08-30-2023 Glucose [Mass/Vol] 123 mg/dL 70-100 [facility] Comment on above: ADA recommended refe rence rangeRandom Glucose Reference Range is dependent on time and content of last meal. Glucose of more than 200 mg/dL in a nonstressed, ambulatory subject supports the diagnosis of Diabetes Mellitus. Hematocrit Auto (Bld) [Volum e fraction]Ordered By: Hermes Velez on 08-30-2023 Hematocrit (Bld) [Volume fraction] 48.1 % 38.8-50.0 [facility] Hemoglobin [Mass/volume] in BloodOrdered By: Hermes Velez on 08-30-2023 Hemoglobin (Bld) [Mass/Vol] 16.2 g/dL 13.0-17.0 [facility] INR in Platelet poor plasma by Coagulation assayOrdered By: Hermes Velez on 08-30-2023 INR Coag (PPP) [Relative time] 1.1 {INR} [facility] Comment on above: INR Therapeutic Rang [...] on 08-30-2023 Ketones (U) [Mass/Vol] Negative Negative [facility] Lactate [Moles/volume] in Se rum or PlasmaOrdered By: Tony Comer on 08-30-2023 Lactate [Moles/Vol] 1.9 mmol/L 0.5-2.2 [facility] Leukocytes [#/volume] correc collins for nucleated erythrocytes in Blood by Automated counOrdered By: Hermes Velez on 08-30-2023 WBC corrected for nucl RBC Auto (Bld) [#/Vol] 14.5 10*3/uL 4.1-10.5 [facility] Lipase [Enzymatic activity/v olume] in Serum or PlasmaOrdered By: Hermes Velez on 08-30-2023 Lipase [Catalytic activity/Vol] 13.0 U/L 11.0-82.0 [facility] Lymphocytes Auto (Bld) [#/Vo l]Ordered By: Hermes Velez on 08-30-2023 Lymphocytes (Bld) [#/Vol] 0.6 10*3/uL 1.00-4.8 [facility] Lymphocytes/100 WBC Auto (Bl d)Ordered By: Hermes Velez on 08-30-2023 Lymphocytes/100 WBC (Bld) 4.4 % . [facility] MCH Auto (RBC) [Entitic mass ]Ordered By: Hermes Velez on 08-30-2023 MCH (RBC) [Entitic mass] 34.5 pg 27.5-35.2 [facility] MCHC Auto (RBC) [Mass/Vol]Or dered By: Hermes Velez on 08-30-2023 MCHC (RBC) [Mass/Vol] 33.7 g/dL 32.5-35.6 [facility] MCV Auto (RBC) [Entitic vol] Ordered By: Hermes Velez on 08-30-2023 MCV (RBC) [Entitic vol] 102.3 fL 83.5-101 [facility] Monocyte distribution width [Entitic volume] in Blood by AutomatedOrdered By: Hermes Velez on 08-30-2023 Monocyte distribution width Auto (Bld) [Entitic vol] 21.88 % High 0.00-20.00 [facility] Comment on above: For adults in ED, MD W > 20.0 may be associated with a higher risk of sepsis during the first 12 hrs of hospital admission Monocytes Auto (Bld) [#/Vol] Ordered By: Hermes Velez on 08-30-2023 Monocytes (Bld) [#/Vol] 0.3 10*3/uL 0.0-0.8 [facility] Monocytes/100 WBC Auto (Bld) Ordered By: Hermes Velez on 08-30-2023 Monocytes/100 WBC (Bld) 2.3 % . [facility] Natriuretic peptide B [Mass/ Vol]Ordered By: Hermes Velez on 08-30-2023 Natriuretic peptide B (Bld) [Mass/Vol] 401.0 pg/mL High 5-100 [facility] Neutrophils Auto (Bld) [#/Vo l]Ordered By: Hermes Velez on 08-30-2023 Neutrophils (Bld) [#/Vol] 13.4 10*3/uL 1.8-7.7 [facility] Neutrophils/100 WBC Auto (Bl d)Ordered By: Hermes Velez on 08-30-2023 Neutrophils/100 WBC (Bld) 92.4 % . [facility] Nitrite Test strip Ql (U)Ord ered By: Hermes Velez on 08-30-2023 Nitrite Ql (U) Negative Negative [facility] No Panel InformationOrdered By: Hermes Velez on 08-30-2023 Bacterial ID (NA Multiplex Assay) Presumptive Coag Neg. Staph [facility] Bacterial ID (NA Multiplex Assay) Staphylococcus sp coag neg Abnormal [facility] Estimated GFR (CKD-EPI) > 60.0 mL/Min [facility] Creatinine Clearance (Chem 82.75 [facility] Nucleated erythrocytes [Pres ence] in Blood by Automated countOrdered By: Hermes Velez on 08-30-2023 Nucleated RBC Auto Ql (Bld) 0.0 /100{WBC} 0-0.5 [facility] Platelet mean volume Auto (B ld) [Entitic vol]Ordered By: Hermes Velez on 08-30-2023 Platelet mean volume (Bld) [Entitic vol] 8.7 fL 6.6-10.1 [facility] Platelets Auto (Bld) [#/Vol] Ordered By: Hermes Velez on 08-30-2023 Platelets (Bld) [#/Vol] 147 10*3/uL 150-450 [facility] Potassium [Moles/volume] in Serum or PlasmaOrdered By: Hermes Velez on 08-30-2023 Potassium [Moles/Vol] 3.3 mmol/L 3.5-5.1 [facility] Protein Auto test strip (U) [Mass/Vol]Ordered By: Hermes Velez on 08-30-2023 Protein (U) [Mass/Vol] Negative Negative [facility] Protein [Mass/volume] in Ser um or PlasmaOrdered By: Hermes Velez on 08-30-2023 Protein [Mass/Vol] 7.0 g/dL 6.4-8.9 [facility] Prothrombin time (PT)Ordered By: Hermes Velez on 08-30-2023 PT Coag (PPP) [Time] 12.8 s 9.0-12.9 [facility] Comment on above: A hematocrit value g reater than 55% may lead to inaccurate results in coagulation testing. Patients having hematocrit values >55% require a special collection tube for coagulation studies. Please contact the laboratory at [phone] for redraw instructions. RBC Auto (Bld) [#/Vol]Ordere d By: Hermes Velez on 08-30-2023 RBC (Bld) [#/Vol] 4.70 10*6/uL 3.90-5.60 [facility] Respiratory pathogens DNA an d RNA panel - Nasopharynx by ROSIE with non-probe detectionOrdered By: Elliott Talley on 08-30-2023 Respiratory pathogens DNA and RNA panel ROSIE+non-probe (Nph) [facility] Serum or plasma albumin/glob ulin mass ratioOrdered By: Hermes Velez on 08-30-2023 Albumin/Globulin [Mass ratio] 1.5 {ratio} [facility] Serum or plasma anion gap de terminationOrdered By: Hermes Velez on 08-30-2023 Anion gap [Moles/Vol] 14.2 mmol/L 6.0-15.0 [facility] Serum or plasma non-glucuron idated bilirubin measurement (mass/volume)Ordered By: Hermes Velez on 08-30-2023 Bilirubin.indirect [Mass/Vol] 0.7 mg/dL [facility] Sodium [Moles/volume] in Ser um or PlasmaOrdered By: Hermes Velez on 08-30-2023 Sodium [Moles/Vol] 136 mmol/L 136-145 [facility] Specific gravity Auto test s trip (U) [Rel density]Ordered By: Hermes Velez on 08-30-2023 Specific gravity (U) [Rel density] 1.016 1.001-1.03 0 [facility] Troponin I.cardiac [Mass/vol ume] in Serum or Plasma by Detection limit <= 0.01 ng/Ordered By: Erin Suresh on 08-30-2023 Troponin I.cardiac DL <= 0.01 ng/mL [Mass/Vol] 16.9 pg/mL 0.0-20.0 [facility] Urea nitrogen [Mass/volume] in Serum or PlasmaOrdered By: Hermes Velez on 08-30-2023 Urea nitrogen [Mass/Vol] 21 mg/dL 7-25 [facility] Urine clarity by refractomet ry automatedOrdered By: Hermes Velez on 08-30-2023 Clarity Refractometry automated (U) Clear Clear [facility] Urine glucose measurement by automated test strip (mass/volume)Ordered By: Hermes Velez on 08-30-2023 Glucose Auto test strip (U) [Mass/Vol] Normal mg/dL Normal [facility] Urine hemoglobin detection b y automated test stripOrdered By: Hermes Velez on 08-30-2023 Hemoglobin Auto test strip Ql (U) Negative Negative [facility] Urine leukocyte esterase det ection by automated test stripOrdered By: Hermes Velez on 08-30-2023 Leukocyte esterase Auto test strip Ql (U) Negative Negative [facility] Urobilinogen Auto test strip (U) [Mass/Vol]Ordered By: Hermes Velez on 08-30-2023 Urobilinogen (U) [Mass/Vol] Normal mg/dL Normal [facility] WBC Auto (Bld) [#/Vol]Ordere d By: Hermes Velez on 08-30-2023 WBC (Bld) [#/Vol] 14.5 10*3/uL 4.1-10.5 [facility] pH Auto test strip (U)Ordere d By: Hermes Velez on 08-30-2023 pH (U) 5.5 [pH] 5.0-9.0 [facility] ECG 12 Leadon 08-16-2023 [facility] Work Phone: Sinus with PVC.s [facility] Work Phone: Carbon dioxide, total [Moles /volume] in Serum or PlasmaOrdered By: Antonio Steele on 08-02-2023 CO2 [Moles/Vol] 26.4 mmol/L 21.0-31.0 [facility] Chloride [Moles/volume] in S ursula or PlasmaOrdered By: Antonio Steele on 08-02-2023 Chloride [Moles/Vol] 102 mmol/L 98-107 [facility] Potassium [Moles/volume] in Serum or PlasmaOrdered By: Antonio Steele on 08-02-2023 Potassium [Moles/Vol] 4.1 mmol/L 3.5-5.1 [facility] Serum or plasma anion gap de terminationOrdered By: Antonio Steele on 08-02-2023 Anion gap [Moles/Vol] 13.7 mmol/L 6.0-15.0 [facility] Sodium [Moles/volume] in Ser um or PlasmaOrdered By: Antonio Steele on 08-02-2023 Sodium [Moles/Vol] 138 mmol/L 136-145 [facility] ECG 12 Leadon 07-27-2023 Atrial fibrillation with controlled rate [facility] Work Phone: CT biopsyon 07-05-2023 CT biopsy 5.3 U/L 1.5-8.1 [facility] Comment on above: This test was bethanie cabrera and its performance characteristics determined by [facility]'s Sarai Mays [facility] Pathology and Laboratory [facility] [place] ([facility]). It has not been cleared or approved by the FDA. [facility] is regulated under CLIA as qualified to perform high-complexity testing. This test is used for clinical purposes. It should not be regarded as investigational or for research. Laboratory - Chemistry and C hemistry - challengeon 07-05-2023 CK [Catalytic activity/Vol] 52 U/L 51-298 [facility] Cobalamin (Vitamin B12) [Mass/Vol] 685 pg/mL 232-1245 [facility] Urate [Mass/Vol] 7.2 mg/dL 4.0-8.1 [facility] Laboratory - Hematology and Cell countson 07-05-2023 ESR (Bld) [Velocity] 15 mm/h 0-15 [facility] No Panel Informationon 07-04 C-Reactive Protein, Quantitative 0.8 mg/dL <0.9 [facility] Serum or plasma calcidiol me asurement (mass/volume)on 07-05-2023 25-hydroxyvitamin D3 [Mass/Vol] 21.4 ng/mL 31.0-80.0 [facility] Comment on above: Classification of 24 [...] years, Gender: Male SCANNER INFORMATION: DXA Model: Okan Date Scanned: 06/28/2023 12:56 PM CLINICAL HISTORY: [...] had a previous bone density in the [facility] or the previous bone density was performed on a different DXA machine (new, updated model or different location) within the [facility]. VERTEBRAL FRACTURE ASSESSMENT Not performed. TRABECULAR BONE [...] FOR MORE INFORMATION ABOUT DIAGNOSIS AND TREATMENT: [facility] for Osteoporosis and Metabolic Bone Disease:? [email or web address] National Osteoporosis Foundation:? www.nof.org International Society of Clinical Densitometry www.iscd.org Supervisor Doping: RAQUEL Transcribe Date/Time: Jun 28 2023 1:37P Dictated by : KEREN BRAVO DO This examination was interpreted and the report reviewed and electronically signed by: KEREN BRAVO DO on Jun 28 2023 1:47PM EST [id number] [facility] BD DXA - FOREARM SKELETONon 06-28-2023 BD [...] years, Gender: Male SCANNER INFORMATION: DXA Model: Okan Date Scanned: 06/28/2023 12:56 PM CLINICAL HISTORY: [...] had a previous bone density in the [facility] or the previous bone density was performed on a different DXA machine (new, updated model or different location) within the [facility]. VERTEBRAL FRACTURE ASSESSMENT Not performed. TRABECULAR BONE [...] FOR MORE INFORMATION ABOUT DIAGNOSIS AND TREATMENT: [facility] Center for Osteoporosis and Metabolic Bone Disease:? www.ccf.org/arthritis/ost eo National Osteoporosis Foundation:? www.nof.org International Society of Clinical Densitometry www.iscd.org Supervisor Doping: RAQUEL Transcribe Date/Time: Jun 28 2023 1:37P Dictated by : KEREN BRAVO DO This examination was interpreted and the report reviewed and electronically signed by: KEREN BRAVO DO on Jun 28 2023 1:47PM EST [id number] Normal [facility] DXA Radius and Ulna [Mass/Ar ea] Bone densityon 06-28-2023 [facility] DXA Skeletal system.axial Vi ews for bone densityon 06-28-2023 [facility] BASIC METABOLIC PANLon 06-11 Anion gap [Moles/Vol] 10 mmol/L Normal 5-15 [facility] Comment on above: Performed By: #### [facility], #### [facility] ([id number]) [address], [address] [place] [address] Calcium [Mass/Vol] 9.3 mg/dL Normal 8.5-10.5 [facility] Comment on above: Performed By: #### [facility], #### [facility] ([id number]) [address], [address] [place] [address] Chloride [Moles/Vol] 102 mmol/L Normal 98-109 [facility] Comment on above: Performed By: #### [facility], #### [facility] ([id number]) [address], [address] [place] [address] CO2 [Moles/Vol] 25 mmol/L Normal 22-32 [facility] Comment on above: Performed By: #### [facility], #### [facility] ([id number]) [address], [address] [place] [address] Creatinine [Mass/Vol] 0.95 mg/dL Normal 0.60-1.30 [facility] Comment on above: Result Comment: METH OD TRACEABLE TO IDMS STANDARD Performed By: #### C RAIMUNDO GOLDSMITH, #### [facility] ([id number]) [address], [address] [place] [address] GFR/1.73 sq M.predicted among non-blacks MDRD (S/P/Bld) [Vol rate/Area] 90 mL/min/{1.73_m2} Normal >59 [facility] Comment on above: Result Comment: Reported eGFR is based on the CKD-EPI 2020 equation that does not use a race coefficient. Performed By: #### C BCA, BMP, #### [facility] ([id number]) [address], [address] [place] [address] Glucose [Mass/Vol] 117 mg/dL High 65-99 [facility] Comment on above: Performed By: #### RAIMUNDO Wong BCA, #### [facility] ([id number]) [address] [place] [address] Potassium [Moles/Vol] 3.9 mmol/L Normal 3.5-5.0 [facility] Comment on above: Performed By: #### RAIMUNDO Wong BCA, #### [facility] ([id number]) [address] [place] [address] Sodium [Moles/Vol] 137 mmol/L Normal 134-146 [facility] Comment on above: Performed By: #### RAIMUNDO Wong BCA, #### [facility] ([id number]) [address] [place] [address] Urea nitrogen [Mass/Vol] 20 mg/dL Normal 5-27 [facility] Comment on above: Performed By: #### RAIMUNDO Wong BCA, #### [facility] ([id number]) [address] [place] [address] CBC AND AUTO DIFFon 06-12-19 24 ABSOLUTE BASOPHIL 0.1 X10E9/L Normal 0.0-0.2 [facility] Comment on above: Performed By: #### RAIMUNDO Wong BCA, #### [facility] ([id number]) [address] [place] [address] ABSOLUTE NEUTROPHIL 5.9 X10E9/L Normal 1.5-6.6 [facility] Comment on above: Performed By: #### RAIMUNDO Wong BCA, #### [facility] ([id number]) [address] [place] [address] Basophils/100 WBC (Bld) 0.6 % Normal [facility] Comment on above: Performed By: #### RAIMUNDO Wong BCA, #### [facility] ([id number]) [address], [address] [place] [address] Eosinophils (Bld) [#/Vol] 0.1 10*3/uL Normal 0.0-0.4 [facility] Comment on above: Performed By: #### RAIMUNDO Wong BCA, #### [facility] ([id number]) [address], [facility] [address] [place] [address] Eosinophils/100 WBC (Bld) 1.0 % Normal [facility] Comment on above: Performed By: #### RAIMUNDO Wong BCA, #### [facility] ([id number]) [address], [facility] [address] [place] [address] Erythrocyte distribution width (RBC) [Ratio] 14.4 % Normal 11.5-15.0 [facility] Comment on above: Performed By: #### RAIMUNDO Wong BCA, #### [facility] ([id number]) [address] [place] [address] Hematocrit (Bld) [Volume fraction] 46.6 % Normal 39-49 [facility] Comment on above: Performed By: #### RAIMUNDO Wong BCA, #### [facility] ([id number]) [address] [place] [address] Hemoglobin (Bld) [Mass/Vol] 15.6 g/dL Normal 13.0-17.0 [facility] Comment on above: Performed By: #### RAIMUNDO Wong BCA, #### [facility] ([id number]) [address], [address] [place] [address] Lymphocytes (Bld) [#/Vol] 2.2 10*3/uL Normal 1.0-3.5 [facility] Comment on above: Performed By: #### RAIMUNDO Wong BCA, #### [facility] ([id number]) [address], [address] [place] [address] Lymphocytes/100 WBC (Bld) 25.1 % Normal [facility] Comment on above: Performed By: #### RAIMUNDO Wong BCA, #### [facility] ([id number]) [address], [address] [place] [address] MCH (RBC) [Entitic mass] 33.5 pg Normal 27-34 [facility] Comment on above: Performed By: #### RAIMUNDO Wong BCA, #### [facility] ([id number]) [address] [place] [address] MCHC (RBC) [Mass/Vol] 33.4 g/dL Normal 32-36 [facility] Comment on above: Performed By: #### RAIMUNDO Wong BCA, #### [facility] ([id number]) [address], [address] [place] [address] MCV (RBC) [Entitic vol] 100 fL Normal 80-100 [facility] Comment on above: Performed By: #### RAIMUNDO Wong BCA, #### [facility] ([id number]) [address] [place] [address] Monocytes (Bld) [#/Vol] 0.7 10*3/uL Normal 0-0.9 [facility] Comment on above: Performed By: #### RAIMUNDO Wong BCA, #### [facility] ([id number]) [address], [address] [place] [address] Monocytes/100 WBC (Bld) 7.5 % Normal [facility] Comment on above: Performed By: #### RAIMUNDO Wong BCA, #### [facility] ([id number]) [address] [place] [address] Neutrophils/100 WBC (Bld) 65.8 % Normal [facility] Comment on above: Performed By: #### RAIMUNDO Wong BCA, #### [facility] ([id number]) [address] [address] [place] [address] Platelet mean volume (Bld) [Entitic vol] 9.3 fL Normal 7-12 [facility] Comment on above: Performed By: #### RAIMUNDO Wong BCA, #### [facility] ([id number]) [address] [address] [place] [address] Platelets (Bld) [#/Vol] 216 10*3/uL Normal 150-450 [facility] Comment on above: Performed By: #### Marvin GOLDSMITH BMP, #### [facility] ([id number]) [address] [address] [place] [address] RBC COUNT 4.65 X10E12/L Normal 4.10-5.70 [facility] Comment on above: Performed By: #### Marvin GOLDSMITH BMP, #### [facility] ([id number]) [address] [address] [place] [address] WBC (Bld) [#/Vol] 8.9 10*3/uL Normal 4.0-11.0 [facility] Comment on above: Performed By: #### Marvin GOLDSMITH BMP, #### [facility] ([id number]) [address] [address] [place] [address] MAGNESIUMon 06-12-2023 Magnesium [Mass/Vol] 1.5 mg/dL Low 1.8-2.6 [facility] Comment on above: Performed By: #### C MP, PINR, 25079-4, , CBCA, 91502-1, 77859-2 #### [facility] ([id number]) [address] [facility] [place] [address] POCT EKGon 06-04-2023 [facility] Basophils Auto (Bld) [#/Vol] Ordered By: Melinda Verduzco on 05-21-2023 Basophils (Bld) [#/Vol] 0.1 10*3/uL 0.0-0.2 [facility] Basophils/100 WBC Auto (Bld) Ordered By: Melinda Verduzco on 05-21-2023 Basophils/100 WBC (Bld) 0.6 % . [facility] C reactive protein [Mass/vol ume] in Serum or PlasmaOrdered By: Melinda Verduzco on 05-21-2023 CRP [Mass/Vol] 0.5 mg/dL 0.0-0.5 [facility] Eosinophils Auto (Bld) [#/Vo l]Ordered By: Melinda Verduzco on 05-21-2023 Eosinophils (Bld) [#/Vol] 0.1 10*3/uL 0.0-0.45 [facility] Eosinophils/100 WBC Auto (Bl d)Ordered By: Melinda Verduzco on 05-21-2023 Eosinophils/100 WBC (Bld) 0.4 % . [facility] Erythrocyte distribution wid th Auto (RBC) [Ratio]Ordered By: Melinda Verduzco on 05-21-2023 Erythrocyte distribution width (RBC) [Ratio] 14.5 % 12.0-14.8 [facility] Erythrocyte sedimentation ra te by Photometric methodOrdered By: Melinda Verduzco on 05-21-2023 ESR Photometric method (Bld) [Velocity] 16 mm/hr 0-19 [facility] Fibrin D-dimer [Presence] in Platelet poor plasma by Latex agglutinationOrdered By: Melinda Verduzco on 05-21-2023 Fibrin D-dimer LA Ql (PPP) 213 ng/mL 0-243 [facility] Comment on above: The reference range [...] coagulation studies. Please contact the laboratory at [phone] for redraw instructions. Hematocrit Auto (Bld) [Volum e fraction]Ordered By: Melinda Verduzco on 05-21-2023 Hematocrit (Bld) [Volume fraction] 47.1 % 38.8-50.0 [facility] Hemoglobin [Mass/volume] in BloodOrdered By: Melinda Verduzco on 05-21-2023 Hemoglobin (Bld) [Mass/Vol] 15.6 g/dL 13.0-17.0 [facility] Leukocytes [#/volume] correc collins for nucleated erythrocytes in Blood by Automated counOrdered By: Melinda Verduzco on 05-21-2023 WBC corrected for nucl RBC Auto (Bld) [#/Vol] 15.1 10*3/uL 4.1-10.5 [facility] Lymphocytes Auto (Bld) [#/Vo l]Ordered By: Melinda Verduzco on 05-21-2023 Lymphocytes (Bld) [#/Vol] 2.1 10*3/uL 1.00-4.8 [facility] Lymphocytes/100 WBC Auto (Bl d)Ordered By: Melinda Verduzco on 05-21-2023 Lymphocytes/100 WBC (Bld) 13.9 % . [facility] MCH Auto (RBC) [Entitic mass ]Ordered By: Melinda Verduzco on 05-21-2023 MCH (RBC) [Entitic mass] 33.3 pg 27.5-35.2 [facility] MCHC Auto (RBC) [Mass/Vol]Or dered By: Melinda Verduzco on 05-21-2023 MCHC (RBC) [Mass/Vol] 33.1 g/dL 32.5-35.6 [facility] MCV Auto (RBC) [Entitic vol] Ordered By: Melinda Verduzco on 05-21-2023 MCV (RBC) [Entitic vol] 100.7 fL 83.5-101 [facility] Monocytes Auto (Bld) [#/Vol] Ordered By: Melinda Verduzco on 05-21-2023 Monocytes (Bld) [#/Vol] 1.0 10*3/uL 0.0-0.8 [facility] Monocytes/100 WBC Auto (Bld) Ordered By: Melinda Verduzco on 05-21-2023 Monocytes/100 WBC (Bld) 6.8 % . [facility] Neutrophils Auto (Bld) [#/Vo l]Ordered By: Melinda Verduzco on 05-21-2023 Neutrophils (Bld) [#/Vol] 11.8 10*3/uL 1.8-7.7 [facility] Neutrophils/100 WBC Auto (Bl d)Ordered By: Melinda Verduzco on 05-21-2023 Neutrophils/100 WBC (Bld) 78.3 % . [facility] Nucleated erythrocytes [Pres ence] in Blood by Automated countOrdered By: Melinda Verduzco on 05-21-2023 Nucleated RBC Auto Ql (Bld) 0.1 /100{WBC} 0-0.5 [facility] Platelet mean volume Auto (B ld) [Entitic vol]Ordered By: Melinda Verduzco on 05-21-2023 Platelet mean volume (Bld) [Entitic vol] 8.7 fL 6.6-10.1 [facility] Platelets Auto (Bld) [#/Vol] Ordered By: Melinda Verduzco on 05-21-2023 Platelets (Bld) [#/Vol] 228 10*3/uL 150-450 [facility] RBC Auto (Bld) [#/Vol]Ordere d By: Melinda Verduczo on 05-21-2023 RBC (Bld) [#/Vol] 4.68 10*6/uL 3.90-5.60 [facility] WBC Auto (Bld) [#/Vol]Ordere d By: Melinda Verduzco on 05-21-2023 WBC (Bld) [#/Vol] 15.1 10*3/uL 4.1-10.5 [facility] CBC AND AUTO DIFFon 04-18-19 24 ABSOLUTE BASOPHIL 0.1 X10E9/L Normal 0.0-0.2 [facility] Comment on above: Performed By: #### C MP, PINR, 26044-2, 52612-7, CBCA, 61396-0, 90599-9 #### [facility] ([id number]) [address] [place] [address] ABSOLUTE NEUTROPHIL 10.9 X10E9/L High 1.5-6.6 [facility] Comment on above: Performed By: #### C MP, PINR, 03227-1, 88661-1, CBCA, 67911-9, 75162-4 #### [facility] ([id number]) [address] [place] [address] Basophils/100 WBC (Bld) 0.4 % Normal [facility] Comment on above: Performed By: #### C MP, PINR, 58693-9, 71893-9, CBCA, 65579-4, 42665-9 #### [facility] ([id number]) [address] [place] [address] Eosinophils (Bld) [#/Vol] 0.0 10*3/uL Normal 0.0-0.4 [facility] Comment on above: Performed By: #### C MP, PINR, 97404-3, 52557-1, CBCA, 03959-8, 29918-4 #### [facility] ([id number]) [address] [place] [address] Eosinophils/100 WBC (Bld) 0.3 % Normal [facility] Comment on above: Performed By: #### C MP, PINR, 15689-7, 17431-7, CBCA, 21043-4, 85263-5 #### [facility] ([id number]) [address] [place] [address] Erythrocyte distribution width (RBC) [Ratio] 14.2 % Normal 11.5-15.0 [facility] Comment on above: Performed By: #### C MP, PINR, 60161-2, 49300-2, CBCA, 92310-6, 49187-5 #### [facility] ([id number]) [address] [place] [address] Hematocrit (Bld) [Volume fraction] 49.6 % High 39-49 [facility] Comment on above: Performed By: #### C MP, PINR, 86497-2, 95474-8, CBCA, 28483-8, 74211-1 #### [facility] ([id number]) [address] [place] [address]652 Hemoglobin (Bld) [Mass/Vol] 16.7 g/dL Normal 13.0-17.0 [facility] Comment on above: Performed By: #### C MP, PINR, 52645-3, 44695-2, CBCA, 83575-7, 35852-3 #### [facility] ([id number]) [address] [place] [address] Lymphocytes (Bld) [#/Vol] 1.6 10*3/uL Normal 1.0-3.5 [facility] Comment on above: Performed By: #### C MP, PINR, 85628-8, 26709-8, CBCA, 66430-4, 29604-2 #### [facility] ([id number]) [address] [place] [address] Lymphocytes/100 WBC (Bld) 11.9 % Normal [facility] Comment on above: Performed By: #### C MP, PINR, 33573-4, 33519-8, CBCA, 20945-1, 51383-7 #### [facility] ([id number]) [address] [place] [address]293 MCH (RBC) [Entitic mass] 34.1 pg High 27-34 [facility] Comment on above: Performed By: #### C MP, PINR, 99877-6, 80998-4, CBCA, 48040-6, 72116-8 #### [facility] ([id number]) [address] [place] [address] MCHC (RBC) [Mass/Vol] 33.7 g/dL Normal 32-36 [facility] Comment on above: Performed By: #### C MP, PINR, 61620-7, 95261-7, CBCA, 88670-5, 24977-5 #### [facility] ([id number]) [address] [place] [address]708 MCV (RBC) [Entitic vol] 101 fL High 80-100 [facility] Comment on above: Performed By: #### C MP, PINR, 94409-8, 86135-3, CBCA, 70514-6, 93485-1 #### [facility] ([id number]) [address] [place] [address]29 Monocytes (Bld) [#/Vol] 0.5 10*3/uL Normal 0-0.9 [facility] Comment on above: Performed By: #### C MP, PINR, 67313-8, 14947-6, CBCA, 27142-1, 56573-6 #### [facility] ([id number]) [address] [place] [address] 89987 Monocytes/100 WBC (Bld) 3.7 % Normal [facility] Comment on above: Performed By: #### C MP, PINR, 83346-5, 38620-5, CBCA, 27271-4, 98064-8 #### [facility] ([id number]) [address] [place] [address] 90347 Neutrophils/100 WBC (Bld) 83.7 % Normal [facility] Comment on above: Performed By: #### C MP, PINR, 63091-6, 09207-9, CBCA, 97173-9, 41835-7 #### [facility] ([id number]) [address] [place] [address] 24507 Platelet mean volume (Bld) [Entitic vol] 8.5 fL Normal 7-12 [facility] Comment on above: Performed By: #### C MP, PINR, 87171-1, 38238-7, CBCA, 73295-3, 36825-7 #### [facility] ([id number]) [address] [place] [address]684 Platelets (Bld) [#/Vol] 264 10*3/uL Normal 150-450 [facility] Comment on above: Performed By: #### C MP, PINR, 34711-2, 44949-3, CBCA, 12374-9, 54752-9 #### [facility] ([id number]) [address] [place] [address] 97175 RBC COUNT 4.89 X10E12/L Normal 4.10-5.70 [facility] Comment on above: Performed By: #### C MP, PINR, 10558-8, 56314-3, CBCA, 54217-8, 80505-9 #### [facility] ([id number]) [address] [place] [address] 59386 WBC (Bld) [#/Vol] 13.0 10*3/uL High 4.0-11.0 [facility] Comment on above: Performed By: #### C MP, PINR, 30664-8, 83386-2, CBCA, 02759-4, 56555-8 #### [facility] ([id number]) [address] [place] [address]32 COMPREHENSIVE METABOLIC PANE Jose 04-18-2023 Albumin [Mass/Vol] 4.4 g/dL Normal 3.2-5.3 [facility] Comment on above: Performed By: #### C MP, PINR, 80147-8, 14533-6, CBCA, 90479-7, 82813-7 #### [facility] ([id number]) [address] [place] [address] 76603 ALP [Catalytic activity/Vol] 69 U/L Normal 39-130 [facility] Comment on above: Performed By: #### C MP, PINR, 90382-1, 75749-6, CBCA, 99450-4, 79721-6 #### [facility] ([id number]) [address] [place] [address] 27141 ALT [Catalytic activity/Vol] 31 U/L Normal 0-40 [facility] Comment on above: Performed By: #### C MP, PINR, 23406-0, 89794-9, CBCA, 89105-2, 94568-1 #### [facility] ([id number]) [address] [place] [address] 88917 Anion gap [Moles/Vol] 9 mmol/L Normal 5-15 [facility] Comment on above: Performed By: #### C MP, PINR, 93484-4, 36041-8, CBCA, 51715-4, 65840-5 #### [facility] ([id number]) [address] [place] [address] 87255 AST [Catalytic activity/Vol] 26 U/L Normal 0-41 [facility] Comment on above: Performed By: #### C MP, PINR, 35472-9, 67713-1, CBCA, 50175-9, 94549-8 #### [facility] ([id number]) [address] [place] [address] 14650 Bilirubin [Mass/Vol] 0.8 mg/dL Normal 0.3-1.2 [facility] Comment on above: Performed By: #### C MP, PINR, 86780-7, 06108-4, CBCA, 54385-3, 36275-0 #### [facility] ([id number]) [address] [place] [address] 63876 Calcium [Mass/Vol] 9.6 mg/dL Normal 8.5-10.5 [facility] Comment on above: Performed By: #### C MP, PINR, 75664-4, 95501-7, CBCA, 27804-6, 30564-8 #### [facility] ([id number]) [address] [place] [address] 44042 Chloride [Moles/Vol] 99 mmol/L Normal 98-109 [facility] Comment on above: Performed By: #### C MP, PINR, 99867-0, 27123-6, CBCA, 03676-6, 59286-7 #### [facility] ([id number]) [address] [place] [address] 28938 CO2 [Moles/Vol] 24 mmol/L Normal 22-32 [facility] Comment on above: Performed By: #### C MP, PINR, 22461-2, 06799-4, CBCA, 03140-2, 26787-4 #### [facility] ([id number]) [address] [place] [address] 29549 Creatinine [Mass/Vol] 1.26 mg/dL High 0.70-1.20 [facility] Comment on above: Result Comment: METH OD TRACEABLE TO IDMS STANDARD Performed By: #### C MP, PINR, 28914-3, 92471-4, CBCA, 32634-2, 84301-4 #### [facility] ([id number]) [address] [place] [address] 30531 GFR/1.73 sq M.predicted among non-blacks MDRD (S/P/Bld) [Vol rate/Area] 64 mL/min/{1.73_m2} Normal >59 [facility] Comment on above: Result Comment: Reported eGFR is based on the CKD-EPI 2020 equation that does not use a race coefficient. Performed By: #### C MP, PINR, 44178-1, 82079-2, CBCA, 55511-4, 23754-3 #### [facility] ([id number]) [address] [place] [address] 59147 Glucose [Mass/Vol] 196 mg/dL High 65-99 [facility] Comment on above: Performed By: #### C MP, PINR, 59155-8, 52945-4, CBCA, 10363-2, 93713-9 #### [facility] ([id number]) [address] [place] [address] 85181 Potassium [Moles/Vol] 3.8 mmol/L Normal 3.5-5.0 [facility] Comment on above: Performed By: #### C MP, PINR, 36244-3, 25241-6, CBCA, 55405-3, 41744-3 #### [facility] ([id number]) [address] [place] [address] 48045 Protein [Mass/Vol] 7.7 g/dL Normal 6.0-8.0 [facility] Comment on above: Performed By: #### C MP, PINR, 97777-7, 51464-7, CBCA, 25669-8, 13570-2 #### [facility] ([id number]) [address] [place] [address] 49696 Sodium [Moles/Vol] 132 mmol/L Low 134-146 [facility] Comment on above: Performed By: #### C MP, PINR, 94614-2, 75680-4, CBCA, 43415-8, 14296-0 #### [facility] ([id number]) [address] [place] [address] 45973 Urea nitrogen [Mass/Vol] 40 mg/dL High 5-27 [facility] Comment on above: Performed By: #### C MP, PINR, 96986-8, 45270-9, CBCA, 85727-8, 67478-4 #### [facility] ([id number]) [address] [place] [address] 13590 MAGNESIUMon 04-18-2023 Magnesium [Mass/Vol] 1.7 mg/dL Low 1.8-2.6 [facility] Comment on above: Performed By: #### C MP, PINR, 22960-5, 85513-9, CBCA, 69532-8, 65823-3 #### [facility] ([id number]) [address] [place] [address] 78289 Natriuretic peptide B [Mass/ Vol]on 04-18-2023 Natriuretic peptide B (Bld) [Mass/Vol] 206 pg/mL High <100.0 [facility] Comment on above: Performed By: #### C MP, PINR, 29882-4, 50914-5, CBCA, 88554-0, 25011-0 #### [facility] ([id number]) [address] [place] [address] 89876 PROTIME AND INRon 04-18-2023 INR Coag (PPP) [Relative time] 1.1 {INR} Normal 0.8-1.1 [facility] Comment on above: Performed By: #### C MP, PINR, 25352-6, 60531-3, CBCA, 02743-9, 47196-7 #### [facility] ([id number]) [address] [place] [address] 30038 PT Coag (PPP) [Time] 12.3 s Normal 9.8-13.2 [facility] Comment on above: Result Comment: NEW REFERENCE RANGE Performed By: #### C MP, PINR, 43936-2, 34751-0, CBCA, 05098-5, 25348-8 #### [facility] ([id number]) [address] [place] [address] 67140 TROPONIN Ion 04-18-2023 Troponin I.cardiac [Mass/Vol] 0.01 ng/mL Normal 0.00-0.04 [facility] Comment on above: Performed By: #### C MP, PINR, 56010-0, 48651-6, CBCA, 12847-0, 40282-0 #### [facility] ([id number]) [address] [place] [address] 67239 aPTT Coag (PPP) [Time]on aPTT Coag (Bld) [Time] 28 s Normal 26-37 [facility] Comment on above: Result Comment: NEW REFERENCE RANGE Performed By: #### C MP, PINR, 30439-8, 27185-6, CBCA, 84967-3, 37334-6 #### [facility] ([id number]) [address] [place] [address] 86693 Basophils Auto (Bld) [#/Vol] Ordered By: Sarai Mendez on 01-29-2023 Basophils (Bld) [#/Vol] 0.1 10*3/uL 0.0-0.2 [facility] Basophils/100 WBC Auto (Bld) Ordered By: Sarai Mendez on 01-29-2023 Basophils/100 WBC (Bld) 0.6 % . [facility] Eosinophils Auto (Bld) [#/Vo l]Ordered By: Sarai Mendez on 01-29-2023 Eosinophils (Bld) [#/Vol] 0.0 10*3/uL 0.0-0.45 [facility] Eosinophils/100 WBC Auto (Bl d)Ordered By: Sarai Mendez on 01-29-2023 Eosinophils/100 WBC (Bld) 0.4 % . [facility] Erythrocyte distribution wid th Auto (RBC) [Ratio]Ordered By: Sarai Mendez on 01-29-2023 Erythrocyte distribution width (RBC) [Ratio] 13.8 % 12.0-14.8 [facility] Hematocrit Auto (Bld) [Volum e fraction]Ordered By: Sarai Mendez on 01-29-2023 Hematocrit (Bld) [Volume fraction] 41.9 % 38.8-50.0 [facility] Hemoglobin [Mass/volume] in BloodOrdered By: Sarai Mendez on 01-29-2023 Hemoglobin (Bld) [Mass/Vol] 14.2 g/dL 13.0-17.0 [facility] Leukocytes [#/volume] correc collins for nucleated erythrocytes in Blood by Automated counOrdered By: Sarai Mendez on 01-29-2023 WBC corrected for nucl RBC Auto (Bld) [#/Vol] 11.9 10*3/uL 4.1-10.5 [facility] Lymphocytes Auto (Bld) [#/Vo l]Ordered By: Sarai Mendez on 01-29-2023 Lymphocytes (Bld) [#/Vol] 1.3 10*3/uL 1.00-4.8 [facility] Lymphocytes/100 WBC Auto (Bl d)Ordered By: Sarai Mendez on 01-29-2023 Lymphocytes/100 WBC (Bld) 10.5 % . [facility] MCH Auto (RBC) [Entitic mass ]Ordered By: Sarai Mendez on 01-29-2023 MCH (RBC) [Entitic mass] 35.8 pg 27.5-35.2 [facility] MCHC Auto (RBC) [Mass/Vol]Or dered By: Sarai Mendez on 01-29-2023 MCHC (RBC) [Mass/Vol] 33.8 g/dL 32.5-35.6 [facility] MCV Auto (RBC) [Entitic vol] Ordered By: Sarai Mendez on 01-29-2023 MCV (RBC) [Entitic vol] 105.8 fL 83.5-101 [facility] Monocytes Auto (Bld) [#/Vol] Ordered By: Sarai Mendez on 01-29-2023 Monocytes (Bld) [#/Vol] 0.6 10*3/uL 0.0-0.8 [facility] Monocytes/100 WBC Auto (Bld) Ordered By: Sarai Mendez on 01-29-2023 Monocytes/100 WBC (Bld) 5.3 % . [facility] Neutrophils Auto (Bld) [#/Vo l]Ordered By: Sarai Mendez on 01-29-2023 Neutrophils (Bld) [#/Vol] 9.9 10*3/uL 1.8-7.7 [facility] Neutrophils/100 WBC Auto (Bl d)Ordered By: Sarai Mendez on 01-29-2023 Neutrophils/100 WBC (Bld) 83.2 % . [facility] Nucleated erythrocytes [Pres ence] in Blood by Automated countOrdered By: Sarai Mendez on 01-29-2023 Nucleated RBC Auto Ql (Bld) 0.1 /100{WBC} 0-0.5 [facility] Platelet mean volume Auto (B ld) [Entitic vol]Ordered By: Sarai Mendez on 01-29-2023 Platelet mean volume (Bld) [Entitic vol] 8.4 fL 6.6-10.1 [facility] Platelets Auto (Bld) [#/Vol] Ordered By: Sarai Mendez on 01-29-2023 Platelets (Bld) [#/Vol] 187 10*3/uL 150-450 [facility] RBC Auto (Bld) [#/Vol]Ordere d By: Sarai Mendez on 01-29-2023 RBC (Bld) [#/Vol] 3.96 10*6/uL 3.90-5.60 [facility] WBC Auto (Bld) [#/Vol]Ordere d By: Sarai Mendez on 01-29-2023 WBC (Bld) [#/Vol] 11.9 10*3/uL 4.1-10.5 [facility] Bilirubin Test strip Ql (U)O rdered By: Sarai Mendez on 01-26-2023 Bilirubin Ql (U) Negative Negative [facility] Calcium [Mass/volume] in Ser um or PlasmaOrdered By: Sarai Mendez on 01-26-2023 Calcium [Mass/Vol] 9.3 mg/dL 8.6-10.3 [facility] Carbon dioxide, total [Moles /volume] in Serum or PlasmaOrdered By: Sarai Mendez on 01-26-2023 CO2 [Moles/Vol] 28.7 mmol/L 21.0-31.0 [facility] Chloride [Moles/volume] in S ursula or PlasmaOrdered By: Sarai Mendez on 01-26-2023 Chloride [Moles/Vol] 101 mmol/L 98-107 [facility] Color Auto (U)Ordered By: Deborah Mendez on 01-26-2023 Color (U) Yellow Yellow [facility] Creatinine [Mass/volume] in Serum or PlasmaOrdered By: Sarai Mendez on 01-26-2023 Creatinine [Mass/Vol] 1.01 mg/dL 0.70-1.30 [facility] Fructosamine [Moles/volume] in Serum or PlasmaOrdered By: Sarai Mendez on 01-26-2023 Fructosamine [Moles/Vol] 192 umol/L 0-285 [facility] Comment on above: Published reference interval for apparently healthysubjects between age 20 and 60 is 205 - 285 umol/L and in apoorly controlled diabetic population is 228 - 563 umol/Lwith a mean of 396 umol/L.Performed at: [facility] Director: Lucas Cooper PhD, Phone: [phone] Glucose [Mass/volume] in Ser um or PlasmaOrdered By: Sarai Mendez on 01-26-2023 Glucose [Mass/Vol] 126 mg/dL 70-100 [facility] Comment on above: ADA recommended refe rence rangeRandom Glucose Reference Range is dependent on time and content of last meal. Glucose of more than 200 mg/dL in a nonstressed, ambulatory subject supports the diagnosis of Diabetes Mellitus. Ketones Auto test strip (U) [Mass/Vol]Ordered By: Sarai Mendez on 01-26-2023 Ketones (U) [Mass/Vol] Negative Negative [facility] Nitrite Test strip Ql (U)Ord ered By: Sarai Mendez on 01-26-2023 Nitrite Ql (U) Negative Negative [facility] No Panel InformationOrdered By: Sarai Mendez on 01-26-2023 Estimated GFR (CKD-EPI) > 60.0 mL/Min [facility] Creatinine Clearance (Chem N/A [facility] Potassium [Moles/volume] in Serum or PlasmaOrdered By: Sarai Mendez on 01-26-2023 Potassium [Moles/Vol] 4.2 mmol/L 3.5-5.1 [facility] Protein Auto test strip (U) [Mass/Vol]Ordered By: Sarai Mendez on 01-26-2023 Protein (U) [Mass/Vol] Negative Negative [facility] Serum or plasma anion gap de terminationOrdered By: Sarai Mendez on 01-26-2023 Anion gap [Moles/Vol] 10.5 mmol/L 6.0-15.0 [facility] Sodium [Moles/volume] in Ser um or PlasmaOrdered By: Sarai Mendez on 01-26-2023 Sodium [Moles/Vol] 136 mmol/L 136-145 [facility] Specific gravity Auto test s trip (U) [Rel density]Ordered By: Sarai Mendez on 01-26-2023 Specific gravity (U) [Rel density] 1.019 1.001-1.03 0 [facility] Urea nitrogen [Mass/volume] in Serum or PlasmaOrdered By: Sarai Mendez on 01-26-2023 Urea nitrogen [Mass/Vol] 21 mg/dL 7-25 [facility] Urine clarity by refractomet ry automatedOrdered By: Sarai Mendez on 01-26-2023 Clarity Refractometry automated (U) Clear Clear [facility] Urine glucose measurement by automated test strip (mass/volume)Ordered By: Sarai Mendez on 01-26-2023 Glucose Auto test strip (U) [Mass/Vol] Normal mg/dL Normal [facility] Urine hemoglobin detection b y automated test stripOrdered By: Sarai Mendez on 01-26-2023 Hemoglobin Auto test strip Ql (U) Negative Negative [facility] Urine leukocyte esterase det ection by automated test stripOrdered By: Sarai Mendez on 01-26-2023 Leukocyte esterase Auto test strip Ql (U) Negative Negative [facility] Urobilinogen Auto test strip (U) [Mass/Vol]Ordered By: Sarai Mendez on 01-26-2023 Urobilinogen (U) [Mass/Vol] Normal mg/dL Normal [facility] pH Auto test strip (U)Ordere d By: Sarai Mendez on 01-26-2023 pH (U) 7.0 [pH] 5.0-9.0 [facility] C-REACTIVE PROTEIN (CRP)on 0 01-06-2023 CRP [Mass/Vol] <0.9 mg/dL [facility] CK CREATINE KINASEon 023 CK [Catalytic activity/Vol] 35 U/L Low 51 - 298 U/L [facility] Comprehensive metabolic 2000 panelon 01-06-2023 Albumin [Mass/Vol] 4.9 g/dL 3.9 - 4.9 g/dL [facility] ALP [Catalytic activity/Vol] 57 U/L 38 - 113 U/L [facility] ALT [Catalytic activity/Vol] 27 U/L 10 - 54 U/L [facility] Anion gap [Moles/Vol] 15 mmol/L 9 - 18 mmol/L [facility] AST [Catalytic activity/Vol] 16 U/L 14 - 40 U/L [facility] Bilirubin [Mass/Vol] 0.7 mg/dL 0.2 - 1 .3 mg/dL [facility] Calcium [Mass/Vol] 10.3 mg/dL High 8.5 - 10. 2 mg/dL [facility] Chloride [Moles/Vol] 98 mmol/L 97 - 10 5 mmol/L [facility] CO2 [Moles/Vol] 24 mmol/L 22 - 30 mmol/L [facility] Creatinine [Mass/Vol] 0.98 mg/dL 0.73 - 1.22 mg/dL [facility] Estimated Glomerular Filtration Rate 87 mL/min/1.73m >=60 mL/min/1.7 3m [facility] Glucose [Mass/Vol] 120 mg/dL High 74 - 99 mg/dL [facility] Potassium [Moles/Vol] 4.3 mmol/L 3.7 - 5.1 mmol/L [facility] Protein [Mass/Vol] 7.1 g/dL 6.3 - 8.0 g/dL [facility] Sodium [Moles/Vol] 137 mmol/L 136 - 144 mmol/L [facility] Urea nitrogen [Mass/Vol] 20 mg/dL 9 - 24 mg/dL [facility] RHEUMATOID FACTOR BLon 01-06 Rheumatoid factor Qn <16 IU/mL [facility] URIC ACID BLOODon 01-06-2023 Urate [Mass/Vol] 6.1 mg/dL 4.0 - 8.1 mg/dL [facility] VITAMIN B12 BLOODon 01-07-20 Cobalamin (Vitamin B12) [Mass/Vol] 343 pg/mL 232 - 1,245 pg/mL [facility] CBC panel Auto (Bld)on 01-05 Erythrocyte distribution width (RBC) [Ratio] 12.9 % 11.5 - 15.0 % [facility] Hematocrit (Bld) [Volume fraction] 48.7 % 39.0 - 51.0 % [facility] Hemoglobin (Bld) [Mass/Vol] 16.3 g/dL 13.0 - 17.0 g/dL [facility] MCH (RBC) [Entitic mass] 35.6 pg High 26.0 - 34.0 pg [facility] MCHC (RBC) [Mass/Vol] 33.5 g/dL 30.5 - 36.0 g/dL [facility] MCV (RBC) [Entitic vol] 106.3 fL High 80.0 - 100.0 fL [facility] Nucleated RBC (Bld) [#/Vol] <0.01 k/uL [facility] Platelet mean volume (Bld) [Entitic vol] 10.7 fL 9.0 - 12.7 fL [facility] Platelets (Bld) [#/Vol] 207 10*3/uL 150 - 400 k/uL [facility] RBC (Bld) [#/Vol] 4.58 10*6/uL 4.20 - 6.00 m/uL [facility] WBC (Bld) [#/Vol] 12.21 10*3/uL High 3.70 - 11.00 k/uL [facility] ESR Westergren method (Bld) [Velocity]on 01-05-2023 ESR (Bld) [Velocity] 2 mm/h 0 - 15 mm/hr [facility] Albumin [Mass/volume] in Ser um or Plasma by Bromocresol green (BCG) dye binding methoOrdered By: Sarai Mendez on 11-13-2022 Albumin BCG dye [Mass/Vol] 4.3 g/dL 3.5-5.7 [facility] Glucose mean value [Mass/vol ume] in Blood Estimated from glycated hemoglobinOrdered By: Sarai Mendez on 11-13-2022 Average glucose Estimated from glycated hemoglobin (Bld) [Mass/Vol] 114 mg/dL [facility] Hemoglobin A1c percentageOrd ered By: Sarai Mendez on 11-13-2022 HbA1c (Bld) [Mass fraction] 5.6 % 4.3-5.6 [facility] Comment on above: Increased risk for d iabetes: 5.7 - 6.4diabetes: >6.4glycemic control for adults with diabetes: <7.0 Hemoglobin [Mass/volume] in BloodOrdered By: Sarai Mendez on 11-13-2022 Hemoglobin (Bld) [Mass/Vol] 14.7 g/dL 13.0-17.0 [facility] Vitamin D+Metabolites [Mass/ volume] in Serum or PlasmaOrdered By: Saari Mendez on 11-13-2022 Vitamin D+Metabolites [Mass/Vol] 13.3 ng/mL 30-100 [facility] Comment on above: VITAMIN D STATUS [...] aPTT Coag (PPP) [Time] 24.5 s 25.1-36.5 [facility] Alanine aminotransferase [En zymatic activity/volume] in Serum or PlasmaOrdered By: Damien Holbrook on 10-11-2022 ALT [Catalytic activity/Vol] 37 U/L 7-52 [facility] Albumin [Mass/volume] in Ser um or Plasma by Bromocresol green (BCG) dye binding methoOrdered By: Damien Holbrook on 10-11-2022 Albumin BCG dye [Mass/Vol] 4.3 g/dL 3.5-5.7 [facility] Alkaline phosphatase [Enzyma tic activity/volume] in Serum or PlasmaOrdered By: Damien Holbrook on 10-11-2022 ALP [Catalytic activity/Vol] 51 U/L 34-104 [facility] Aspartate aminotransferase [ Enzymatic activity/volume] in Serum or PlasmaOrdered By: Damien Holbrook on 10-11-2022 AST [Catalytic activity/Vol] 26 U/L 13-39 [facility] Automated erythrocytes count in urine sediment (number/area)Ordered By: Damien Holbrook on 10-11-2022 RBC Auto (Urine sed) [#/Area] 3-4 [HPF] 0-4 [facility] Automated leukocytes count i n urine sediment (number/area)Ordered By: Damien Holbrook on 10-11-2022 WBC Auto (Urine sed) [#/Area] 3-4 [HPF] 0-4 [facility] Automated urine hyaline cast s count (number/volume)Ordered By: Damien Holbrook on 10-11-2022 Hyaline casts Auto (U) [#/Vol] 20-49 [LPF] 0-1 [facility] Basophils Auto (Bld) [#/Vol] Ordered By: Damien Holbrook on 10-11-2022 Basophils (Bld) [#/Vol] 0.1 10*3/uL 0.0-0.2 [facility] Basophils/100 WBC Auto (Bld) Ordered By: Damien Holbrook on 10-11-2022 Basophils/100 WBC (Bld) 1.1 % . [facility] Bilirubin Test strip Ql (U)O rdered By: Damien Holbrook on 10-11-2022 Bilirubin Ql (U) 1+ Negative [facility] Bilirubin.total [Mass/volume ] in Serum or PlasmaOrdered By: Damien Holbrook on 10-11-2022 Bilirubin [Mass/Vol] 1.0 mg/dL 0.3-1.0 [facility] Calcium [Mass/volume] in Ser um or PlasmaOrdered By: Damien Holbrook on 10-11-2022 Calcium [Mass/Vol] 9.7 mg/dL 8.6-10.3 [facility] Carbon dioxide, total [Moles /volume] in Serum or PlasmaOrdered By: Damien Holbrook on 10-11-2022 CO2 [Moles/Vol] 27.5 mmol/L 21.0-31.0 [facility] Chloride [Moles/volume] in S ursula or PlasmaOrdered By: Damien Holbrook on 10-11-2022 Chloride [Moles/Vol] 101 mmol/L 98-107 [facility] Color Auto (U)Ordered By: Gregor Holbrook on 10-11-2022 Color (U) Dark yellow Yellow [facility] Creatinine [Mass/volume] in Serum or PlasmaOrdered By: Damien Holbrook on 10-11-2022 Creatinine [Mass/Vol] 1.25 mg/dL 0.70-1.30 [facility] Eosinophils Auto (Bld) [#/Vo l]Ordered By: Damien Holbrook on 10-11-2022 Eosinophils (Bld) [#/Vol] 0.0 10*3/uL 0.0-0.45 [facility] Eosinophils/100 WBC Auto (Bl d)Ordered By: Damien Holbrook on 10-11-2022 Eosinophils/100 WBC (Bld) 0.4 % . [facility] Erythrocyte distribution wid th Auto (RBC) [Ratio]Ordered By: Damien Holbrook on 10-11-2022 Erythrocyte distribution width (RBC) [Ratio] 14.4 % 12.0-14.8 [facility] Globulin Calc (S) [Mass/Vol] Ordered By: Damien Holbrook on 10-11-2022 Globulin (S) [Mass/Vol] 2.8 g/dL [facility] Glucose [Mass/volume] in Ser um or PlasmaOrdered By: Damien Holbrook on 10-11-2022 Glucose [Mass/Vol] 128 mg/dL 70-100 [facility] Comment on above: ADA recommended refe rence rangeRandom Glucose Reference Range is dependent on time and content of last meal. Glucose of more than 200 mg/dL in a nonstressed, ambulatory subject supports the diagnosis of Diabetes Mellitus. Hematocrit Auto (Bld) [Volum e fraction]Ordered By: Damien Holbrook on 10-11-2022 Hematocrit (Bld) [Volume fraction] 45.3 % 38.8-50.0 [facility] Hemoglobin [Mass/volume] in BloodOrdered By: Damien Holbrook on 10-11-2022 Hemoglobin (Bld) [Mass/Vol] 15.5 g/dL 13.0-17.0 [facility] Ketones Auto test strip (U) [Mass/Vol]Ordered By: Damien Holbrook on 10-11-2022 Ketones (U) [Mass/Vol] Trace Negative [facility] Laboratory - CoagulationOrde red By: Damien Holbrook on 10-11-2022 PT Coag (PPP) [Time] 11.8 s 9.0-12.9 [facility] Leukocytes [#/volume] correc collins for nucleated erythrocytes in Blood by Automated counOrdered By: Damien Holbrook on 10-11-2022 WBC corrected for nucl RBC Auto (Bld) [#/Vol] 11.9 10*3/uL 4.1-10.5 [facility] Lymphocytes Auto (Bld) [#/Vo l]Ordered By: Damien Holbrook on 10-11-2022 Lymphocytes (Bld) [#/Vol] 1.5 10*3/uL 1.00-4.8 [facility] Lymphocytes/100 WBC Auto (Bl d)Ordered By: Damien Holbrook on 10-11-2022 Lymphocytes/100 WBC (Bld) 13.0 % . [facility] MCH Auto (RBC) [Entitic mass ]Ordered By: Damien Holbrook on 10-11-2022 MCH (RBC) [Entitic mass] 35.3 pg 27.5-35.2 [facility] MCHC Auto (RBC) [Mass/Vol]Or dered By: Damien Holbrook on 10-11-2022 MCHC (RBC) [Mass/Vol] 34.2 g/dL 32.5-35.6 [facility] MCV Auto (RBC) [Entitic vol] Ordered By: Damien Holbrook on 10-11-2022 MCV (RBC) [Entitic vol] 103.4 fL 83.5-101 [facility] Magnesium [Mass/volume] in S ursula or PlasmaOrdered By: Damien Holbrook on 10-11-2022 Magnesium [Mass/Vol] 1.6 mg/dL 1.9-2.7 [facility] Monocyte distribution width [Entitic volume] in Blood by AutomatedOrdered By: Damien Holbrook on 10-11-2022 Monocyte distribution width Auto (Bld) [Entitic vol] 21.21 % 0.00-20.00 [facility] Comment on above: For adults in ED, MD W > 20.0 may be associated with a higher risk of sepsis during the first 12 hrs of hospital admission Monocytes Auto (Bld) [#/Vol] Ordered By: Damien Holbrook on 10-11-2022 Monocytes (Bld) [#/Vol] 1.1 10*3/uL 0.0-0.8 [facility] Monocytes/100 WBC Auto (Bld) Ordered By: Damien Holbrook on 10-11-2022 Monocytes/100 WBC (Bld) 9.1 % . [facility] Natriuretic peptide B [Mass/ Vol]Ordered By: Damien Holbrook on 10-11-2022 Natriuretic peptide B (Bld) [Mass/Vol] 206.0 pg/mL 5-100 [facility] Neutrophils Auto (Bld) [#/Vo l]Ordered By: Damien Holbrook on 10-11-2022 Neutrophils (Bld) [#/Vol] 9.1 10*3/uL 1.8-7.7 [facility] Neutrophils/100 WBC Auto (Bl d)Ordered By: Damien Holbrook on 10-11-2022 Neutrophils/100 WBC (Bld) 76.4 % . [facility] Nitrite Test strip Ql (U)Ord ered By: Damien Holbrook on 10-11-2022 Nitrite Ql (U) Negative Negative [facility] No Panel InformationOrdered By: Damien Holbrook on 10-11-2022 Estimated GFR (CKD-EPI) > 60.0 mL/Min [facility] Creatinine Clearance (Chem N/A [facility] Nucleated erythrocytes [Pres ence] in Blood by Automated countOrdered By: Damien Holbrook on 10-11-2022 Nucleated RBC Auto Ql (Bld) 0.1 /100{WBC} 0-0.5 [facility] Platelet mean volume Auto (B ld) [Entitic vol]Ordered By: Damien Holbrook on 10-11-2022 Platelet mean volume (Bld) [Entitic vol] 8.6 fL 6.6-10.1 [facility] Platelet poor plasma interna tional normalized ratio (INR) by coagulation assay (relatOrdered By: Damien Holbrook on 10-11-2022 INR Coag (PPP) [Relative time] 1.0 {INR} [facility] Comment on above: INR Therapeutic Rang [...] 10-11-2022 Platelets (Bld) [#/Vol] 197 10*3/uL 150-450 [facility] Potassium [Moles/volume] in Serum or PlasmaOrdered By: Damien Holbrook on 10-11-2022 Potassium [Moles/Vol] 4.0 mmol/L 3.5-5.1 [facility] Protein Auto test strip (U) [Mass/Vol]Ordered By: Damien Holbrook on 10-11-2022 Protein (U) [Mass/Vol] 100 mg/dL Negative [facility] Protein [Mass/volume] in Ser um or PlasmaOrdered By: Damien Holbrook on 10-11-2022 Protein [Mass/Vol] 7.1 g/dL 6.4-8.9 [facility] RBC Auto (Bld) [#/Vol]Ordere d By: Damein Holbrook on 10-11-2022 RBC (Bld) [#/Vol] 4.38 10*6/uL 3.90-5.60 [facility] Serum or plasma albumin/glob ulin mass ratioOrdered By: Damien Holbrook on 10-11-2022 Albumin/Globulin [Mass ratio] 1.5 {ratio} [facility] Serum or plasma anion gap de terminationOrdered By: Damien Holbrook on 10-11-2022 Anion gap [Moles/Vol] 12.5 mmol/L 6.0-15.0 [facility] Sodium [Moles/volume] in Ser um or PlasmaOrdered By: Damien Holbrook on 10-11-2022 Sodium [Moles/Vol] 137 mmol/L 136-145 [facility] Specific gravity Auto test s trip (U) [Rel density]Ordered By: Damien Holbrook on 10-11-2022 Specific gravity (U) [Rel density] 1.027 1.001-1.03 0 [facility] Squamous epithelial cells de tection in urine sediment by light microscopyOrdered By: Damien Holbrook on 10-11-2022 Epithelial cells.squamous LM Ql (Urine sed) 0-1 [HPF] 0-2 [facility] Troponin I.cardiac [Mass/vol ume] in Serum or Plasma by Detection limit <= 0.01 ng/Ordered By: Damien Holbrook on 10-11-2022 Troponin I.cardiac DL <= 0.01 ng/mL [Mass/Vol] 17.7 pg/mL 0.0-20.0 [facility] Urea nitrogen [Mass/volume] in Serum or PlasmaOrdered By: Damien Holbrook on 10-11-2022 Urea nitrogen [Mass/Vol] 19 mg/dL 7-25 [facility] Urine bacteria detection by automated methodOrdered By: Damien Holbrook on 10-11-2022 Bacteria Auto Ql (U) None seen None Seen [facility] Urine clarity by refractomet ry automatedOrdered By: Damien Holbrook on 10-11-2022 Clarity Refractometry automated (U) Cloudy Clear [facility] Urine glucose measurement by automated test strip (mass/volume)Ordered By: Damien Holbrook on 10-11-2022 Glucose Auto test strip (U) [Mass/Vol] Normal mg/dL Normal [facility] Urine hemoglobin detection b y automated test stripOrdered By: Damien Holbrook on 10-11-2022 Hemoglobin Auto test strip Ql (U) Negative Negative [facility] Urine leukocyte esterase det ection by automated test stripOrdered By: Damien Holbrook on 10-11-2022 Leukocyte esterase Auto test strip Ql (U) 1+ Negative [facility] Urobilinogen Auto test strip (U) [Mass/Vol]Ordered By: Damien Holbrook on 10-11-2022 Urobilinogen (U) [Mass/Vol] Normal mg/dL Normal [facility] WBC Auto (Bld) [#/Vol]Ordere d By: Damien Holbrook on 10-11-2022 WBC (Bld) [#/Vol] 11.9 10*3/uL 4.1-10.5 [facility] pH Auto test strip (U)Ordere d By: Damien Holbrook on 10-11-2022 pH (U) 5.5 [pH] 5.0-9.0 [facility] Automated erythrocytes count in urine sediment (number/area)Ordered By: Sarai Georges on 10-02-2022 RBC Auto (Urine sed) [#/Area] 1-2 [HPF] 0-4 [facility] Automated leukocytes count i n urine sediment (number/area)Ordered By: Sarai Georges on 10-02-2022 WBC Auto (Urine sed) [#/Area] None seen [HPF] 0-4 [facility] Basophils Auto (Bld) [#/Vol] Ordered By: Sarai Georges on 10-02-2022 Basophils (Bld) [#/Vol] 0.1 10*3/uL 0.0-0.2 [facility] Basophils/100 WBC Auto (Bld) Ordered By: Sarai Georges on 10-02-2022 Basophils/100 WBC (Bld) 0.6 % . [facility] Bilirubin Auto test strip Ql (U)Ordered By: Sarai Georges on 10-02-2022 Bilirubin Ql (U) Negative Negative [facility] C reactive protein [Mass/vol ume] in Serum or PlasmaOrdered By: Sarai Georges on 10-02-2022 CRP [Mass/Vol] 0.5 mg/dL 0.0-0.5 [facility] Creatine kinase [Enzymatic a ctivity/volume] in Serum or PlasmaOrdered By: Sarai Georges on 10-02-2022 CK [Catalytic activity/Vol] 52 U/L 30-223 [facility] Creatinine [Mass/volume] in Serum or PlasmaOrdered By: Sarai Georges on 10-02-2022 Creatinine [Mass/Vol] 1.00 mg/dL 0.70-1.30 [facility] DNA double strand Ab [Units/ volume] in SerumOrdered By: Sarai Georges on 10-02-2022 DNA double strand Ab Qn (S) [IU]/mL 0-9 [facility] Comment on above: Negative <5 Equivoca l 5 - 9 Positive >9Performed at: - [facility] [address] [id number] Director: Lucas Cooper PhD, Phone: [phone] Eosinophils Auto (Bld) [#/Vo l]Ordered By: Sarai Georges on 10-02-2022 Eosinophils (Bld) [#/Vol] 0.0 10*3/uL 0.0-0.45 [facility] Eosinophils/100 WBC Auto (Bl d)Ordered By: Sarai Georges on 10-02-2022 Eosinophils/100 WBC (Bld) 0.5 % . [facility] Erythrocyte distribution wid th Auto (RBC) [Ratio]Ordered By: Sarai Georges on 10-02-2022 Erythrocyte distribution width (RBC) [Ratio] 14.9 % 12.0-14.8 [facility] Erythrocyte sedimentation ra te by Photometric methodOrdered By: Sarai Georges on 10-02-2022 ESR Photometric method (Bld) [Velocity] 16 mm/hr 0-19 [facility] Hematocrit Auto (Bld) [Volum e fraction]Ordered By: Sarai Georges on 10-02-2022 Hematocrit (Bld) [Volume fraction] 41.2 % 38.8-50.0 [facility] Hemoglobin [Mass/volume] in BloodOrdered By: Sarai Georges on 10-02-2022 Hemoglobin (Bld) [Mass/Vol] 14.0 g/dL 13.0-17.0 [facility] Ketones Auto test strip (U) [Mass/Vol]Ordered By: Sarai Georges on 10-02-2022 Ketones (U) [Mass/Vol] Negative Negative [facility] Laboratory - UrinalysisOrder ed By: Sarai Georges on 10-02-2022 Hyaline casts LM Ql (Urine sed) 0-8 [LPF] 0-8 [facility] Leukocytes [#/volume] correc collins for nucleated erythrocytes in Blood by Automated counOrdered By: Sarai Georges on 10-02-2022 WBC corrected for nucl RBC Auto (Bld) [#/Vol] 9.5 10*3/uL 4.1-10.5 [facility] Lymphocytes Auto (Bld) [#/Vo l]Ordered By: Sarai Georges on 10-02-2022 Lymphocytes (Bld) [#/Vol] 1.7 10*3/uL 1.00-4.8 [facility] Lymphocytes/100 WBC Auto (Bl d)Ordered By: Sarai Georges on 10-02-2022 Lymphocytes/100 WBC (Bld) 18.5 % . [facility] MCH Auto (RBC) [Entitic mass ]Ordered By: Sarai Georges on 10-02-2022 MCH (RBC) [Entitic mass] 35.4 pg 27.5-35.2 [facility] MCHC Auto (RBC) [Mass/Vol]Or dered By: Sarai Georges on 10-02-2022 MCHC (RBC) [Mass/Vol] 33.9 g/dL 32.5-35.6 [facility] MCV Auto (RBC) [Entitic vol] Ordered By: Sarai Georges on 10-02-2022 MCV (RBC) [Entitic vol] 104.5 fL 83.5-101 [facility] Monocytes Auto (Bld) [#/Vol] Ordered By: Sarai Georges on 10-02-2022 Monocytes (Bld) [#/Vol] 0.7 10*3/uL 0.0-0.8 [facility] Monocytes/100 WBC Auto (Bld) Ordered By: Sarai Georges on 10-02-2022 Monocytes/100 WBC (Bld) 7.2 % . [facility] Neutrophils Auto (Bld) [#/Vo l]Ordered By: Saria Georges on 10-02-2022 Neutrophils (Bld) [#/Vol] 6.9 10*3/uL 1.8-7.7 [facility] Neutrophils/100 WBC Auto (Bl d)Ordered By: Sarai Georges on 10-02-2022 Neutrophils/100 WBC (Bld) 73.2 % . [facility] No Panel InformationOrdered By: Sarai Georges on 10-02-2022 Estimated GFR (CKD-EPI) > 60.0 mL/Min [facility] Creatinine Clearance (Chem N/A [facility] Total Complement (CH50) >60 U/mL >41 [facility] Comment on above: Age Male Female [...] to determine out of range values.Performed at: [place] [id number] Director: Lucas Cooper PhD, Phone: [phone] Nucleated erythrocytes [Pres ence] in Blood by Automated countOrdered By: Sarai Georges on 10-02-2022 Nucleated RBC Auto Ql (Bld) 0.1 /100{WBC} 0-0.5 [facility] Platelet mean volume Auto (B ld) [Entitic vol]Ordered By: Sarai Georges on 10-02-2022 Platelet mean volume (Bld) [Entitic vol] 8.9 fL 6.6-10.1 [facility] Platelets Auto (Bld) [#/Vol] Ordered By: Sarai Georges on 10-02-2022 Platelets (Bld) [#/Vol] 201 10*3/uL 150-450 [facility] Protein Auto test strip (U) [Mass/Vol]Ordered By: Sarai Georges on 10-02-2022 Protein (U) [Mass/Vol] Negative Negative [facility] RBC Auto (Bld) [#/Vol]Ordere d By: Sarai Georges on 10-02-2022 RBC (Bld) [#/Vol] 3.94 10*6/uL 3.90-5.60 [facility] Serum Corona extractable nucl ear antigen (OPAL) antibody assay (units/volume)Ordered By: Sarai Georges on 10-02-2022 Corona extractable nuclear Ab Qn (S) <0.2 AI 0.0-0.9 [facility] Serum or plasma complement C 3 measurement (mass/volume)Ordered By: Sarai Georges on 10-02-2022 Complement C3 [Mass/Vol] 147 mg/dL 82-167 [facility] Comment on above: Performed at: [facility] [employer] [address] [id number] Director: Lucas Cooper PhD, Phone: [phone] Serum or plasma complement C 4 measurement (mass/volume)Ordered By: Sarai Georges on 10-02-2022 Complement C4 [Mass/Vol] 29 mg/dL 12-38 [facility] Squamous epithelial cells de tection in urine sediment by light microscopyOrdered By: Sarai Georges on 10-02-2022 Epithelial cells.squamous LM Ql (Urine sed) None seen [HPF] 0-2 [facility] Urine appearanceOrdered By: Sarai Georges on 10-02-2022 Appearance (U) Clear Clear [facility] Urine bacteria detection by automated methodOrdered By: Sarai Georges on 10-02-2022 Bacteria Auto Ql (U) None seen None Seen [facility] Urine colorOrdered By: Tyler Georges on 10-02-2022 Color (U) Yellow Yellow [facility] Urine glucose measurement by automated test strip (mass/volume)Ordered By: Sarai Georges on 10-02-2022 Glucose Auto test strip (U) [Mass/Vol] Normal mg/dL Normal [facility] Urine hemoglobin detection b y automated test stripOrdered By: Sarai Georges on 10-02-2022 Hemoglobin Auto test strip Ql (U) Negative Negative [facility] Urine leukocyte esterase det ection by automated test stripOrdered By: Sarai Georges on 10-02-2022 Leukocyte esterase Auto test strip Ql (U) Negative Negative [facility] Urine nitrite detection by a utomated test stripOrdered By: Sarai Georges on 10-02-2022 Nitrite Auto test strip Ql (U) Negative Negative [facility] Urobilinogen Auto test strip (U) [Mass/Vol]Ordered By: Sarai Georges on 10-02-2022 Urobilinogen (U) [Mass/Vol] Normal mg/dL Normal [facility] WBC Auto (Bld) [#/Vol]Ordere d By: Sarai Georges on 10-02-2022 WBC (Bld) [#/Vol] 9.5 10*3/uL 4.1-10.5 [facility] pH Auto test strip (U)Ordere d By: Sarai Georges on 10-02-2022 pH (U) 1.015 [pH] 1.001-1.03 0 [facility] pH (U) 6.5 [pH] 5.0-9.0 [facility] RETICULOCYTEon 07-31-2022 RETIC 3.90 % Critically high 0.60-3.10 [facility] Comment on above: Performed By: #### R ETIC #### [facility] [address] [place] [address] Dr. Tracy Hubbard VIT B12 AND FOLATEon 023 Cobalamin (Vitamin B12) [Mass/Vol] 436.0 pg/mL Normal 193.0-986. [address] [facility] Comment on above: Performed By: #### B 12FOL #### [facility] [address] [place] [address] Dr. Tracy Hubbard FOLATE 17.10 ng/mL Normal 8.60-58.[address] [facility] Comment on above: Performed By: #### B 12FOL #### [facility] [address] [place] [address] [address] Tracy Hubbard CBC AUTO DIFFon 07-29-2022 BASO # 0.1 103/ul Normal 0.0-0.[address] [facility] Comment on above: Performed By: #### C BC #### [facility] [address] [place] [address] Dr. Tracy Hubbard Basophils/100 WBC (Bld) 0.7 % Normal 0.2-2.[address] [facility] Comment on above: Performed By: #### C BC #### [facility] [address] [place] [address] Dr. Tracy Hubbard EO # 0.1 103/ul Normal 0.0-0.[address] [facility] Comment on above: Performed By: #### C BC #### [facility] [address] [place] [address] Dr. Tracy Hubbard Eosinophils/100 WBC (Bld) 1.7 % Normal 0.9-7.[address] [facility] Comment on above: Performed By: #### C BC #### [facility] [address] [place] [address] Dr. Tracy Hubbard Erythrocyte distribution width (RBC) [Ratio] 12.8 % Normal 11.0-15.[address] [facility] Comment on above: Performed By: #### C BC #### [facility] [address] [place] [address] Dr. Tracy Hubbard Hematocrit (Bld) [Volume fraction] 44.6 % Normal 42.0-54.[address] [facility] Comment on above: Performed By: #### C BC #### [facility] [address] [place] [address] Dr. Tracy Hubbard Hemoglobin (Bld) [Mass/Vol] 15.5 g/dL Normal 14.0-18.[address] [facility] Comment on above: Performed By: #### C BC #### [facility] [address] [place] [address] Dr. Tracy Hubbard IG # 0.03 10e3/ul Normal 0.00-0.[address] [facility] Comment on above: Performed By: #### C BC #### [facility] [address] [place] [address] Dr. Tracy Hubbard IG % 0.4 % Normal 0.0-0.[address] [facility] Comment on above: Performed By: #### C BC #### [facility] [address] [place] [address] Dr. Tracy Hubbard LYMPH # 1.7 103/ul Normal 1.2-3.[address] [facility] Comment on above: Performed By: #### C BC #### [facility] [address] [place] [address] Dr. Tracy Hubbard Lymphocytes/100 WBC (Bld) 24.8 % Normal 20.5-60.[address] [facility] Comment on above: Performed By: #### C BC #### [facility] [address] [place] [address] Dr. Tracy Hubbard MANUAL DIFF REQ NO Normal [facility] Comment on above: Performed By: #### C BC #### [facility] [address] [place] [address] Dr. Tracy Hubbard MCH (RBC) [Entitic mass] 35.7 pg Critically high 25.9-34.[address] [facility] Comment on above: Performed By: #### C BC #### [facility] [address] [place] [address] Dr. Tracy Hubbard MCHC (RBC) [Mass/Vol] 34.8 g/dL Normal 29.9-35.[address] [facility] Comment on above: Performed By: #### C BC #### [facility] [address] [place] [address] Dr. Tracy Hubbard MCV (RBC) [Entitic vol] 102.8 fL Critically high 80.0-94.[address] [facility] Comment on above: Performed By: #### C BC #### [facility] [address] [place] [address] Dr. Tracy Hubbard MONO # 0.7 103/ul Normal 0.3-0.[address] [facility] Comment on above: Performed By: #### C BC #### [facility] [address] [place] [address] Dr. Tracy Hubbard Monocytes/100 WBC (Bld) 9.8 % Normal 1.7-12.[address] [facility] Comment on above: Performed By: #### C BC #### [facility] [address] [place] [address] Dr. Tracy Hubbard NEUT # 4.4 103/ul Normal 1.4-6.[address] [facility] Comment on above: Performed By: #### C BC #### [facility] [address] [place] [address] [address] Tracy Hubbard Neutrophils/100 WBC (Bld) 62.6 % Normal 43.0-75.[address] [facility] Comment on above: Performed By: #### C BC #### [facility] [address] [place] [address] [address] Tracy Hubbard Platelet mean volume (Bld) [Entitic vol] 10.3 fL Normal 9.5-13.[address] [facility] Comment on above: Performed By: #### C BC #### [facility] [address] [place] [address] [address] Tracy Hubbard PLT 182 103/ul Normal 150-[address] [facility] Comment on above: Performed By: #### C BC #### [facility] [address] [place] [address] Dr. Tracy Hubbard RBC 4.34 106/ul Critically low 4.70-6.10 [facility] Comment on above: Performed By: #### C BC #### [facility] [address] [place] [address] Dr. Tracy Hubbard WBC 7.0 103/ul Normal 4.0-11.[address] [facility] Comment on above: Performed By: #### C BC #### [facility] [address] [place] [address] Dr. Tracy Hubbard CPKon 07-29-2022 CK [Catalytic activity/Vol] 84 U/L Normal 39-[address] [facility] Comment on above: Performed By: #### C MP, CRP, TSH, LIPID, CK #### [facility] [address] [place] [address] Dr. Tracy uHbbard CRPon 07-29-2022 CRP [Mass/Vol] mg/L Normal <=1.0 [facility] Comment on above: Performed By: #### C MP, CRP, TSH, LIPID, CK #### [facility] [address] [place] [address] Dr. Tracy Hubbard LIPID PROFILEon 07-29-2022 CHOL-HDL RATIO NORM SEE BELOW Normal [facility] Comment on above: Result Comment: 3.3 - 4.4 LOW RISK 4.4 - 7.1 AVERAGE RISK 7.1 - 11.0 MODERATE RISK >11.0 HIGH RISK Performed By: #### C MP, CRP, TSH, LIPID, CK #### [facility] [address] [place] [address] [address] Tracy Hubbard Cholesterol [Mass/Vol] 145 mg/dL Normal <=200 [facility] Comment on above: Performed By: #### C MP, CRP, TSH, LIPID, CK #### [facility] [address] [place] [address] [address] Tracy Hubbard Cholesterol in HDL [Mass/Vol] 45 mg/dL Normal 40-[address] [facility] Comment on above: Performed By: #### C MP, CRP, TSH, LIPID, CK #### [facility] [address] [place] [address] [address] Tracy Hubbard Cholesterol in LDL [Mass/Vol] 64.4 mg/dL Normal [facility] Comment on above: Performed By: #### C MP, CRP, TSH, LIPID, CK #### [facility] [address] [place] [address] [address] Tracy Hubbard Cholesterol.total/Chol esterol in HDL [Mass ratio] 3.2 {ratio} Normal [facility] Comment on above: Performed By: #### C MP, CRP, TSH, LIPID, CK #### [facility] [address] [place] [address] [address] Tracy Hubbard HDL NORMAL > or = 60 mg/dl - LO W CARDIOVASCULAR RISK <40 mg/dl - HIGH CARDIOVASCULAR RISK Normal [facility] Comment on above: Performed By: #### C MP, CRP, TSH, LIPID, CK #### [facility] [address] [place] [address] [address] Tracy Hubbard LDL CALC NORMAL SEE BELOW Normal [facility] Comment on above: Result Comment: <100 mg/dl OPTIMAL 100 - 129 mg/dl NEAR OR ABOVE OPTIMAL 130 - 159 mg/dl BORDERLINE HIGH 160 - 189 mg/dl HIGH >190 mg/dl VERY HIGH Performed By: #### C MP, CRP, TSH, LIPID, CK #### [facility] [address] [place] [address] Dr. Tracy Hubbard Triglyceride [Mass/Vol] 178 mg/dL Critically high <=[address] [facility] Comment on above: Performed By: #### C MP, CRP, TSH, LIPID, CK #### [facility] [address] [place] [address] [address] Tracy Hubbard VLDL CALC 35.6 mg/dL Normal [facility] Comment on above: Performed By: #### C MP, CRP, TSH, LIPID, CK #### [facility] [address] [place] [address] Dr. Tracy Hubbard PROF 14(COMP METB)on 023 Albumin [Mass/Vol] 4.1 g/dL Normal 3.4-5.0 [facility] Comment on above: Performed By: #### C MP, CRP, TSH, LIPID, CK #### [facility] [address] [place] [address] Dr. Tracy Hubbard Albumin/Globulin [Mass ratio] 1.2 {ratio} Normal [facility] Comment on above: Performed By: #### C MP, CRP, TSH, LIPID, CK #### [facility] [address] [place] [address] Dr. Tracy Hubbard ALP [Catalytic activity/Vol] 66 U/L Normal 46-[address] [facility] Comment on above: Performed By: #### C MP, CRP, TSH, LIPID, CK #### [facility] [address] [place] [address] Dr. Tracy Hubbard ALT [Catalytic activity/Vol] 44 U/L Normal 16-[address] [facility] Comment on above: Performed By: #### C MP, CRP, TSH, LIPID, CK #### [facility] [address] [place] [address] Dr. Tracy Hubbard Anion gap [Moles/Vol] 12.3 mmol/L Normal [facility] Comment on above: Performed By: #### C MP, CRP, TSH, LIPID, CK #### [facility] [address] [place] [address] Dr. Tracy Hubbard AST [Catalytic activity/Vol] 26 U/L Normal 15-[address] [facility] Comment on above: Performed By: #### C MP, CRP, TSH, LIPID, CK #### [facility] [address] [place] [address] [address] Tracy Hubbard Bilirubin [Mass/Vol] 0.8 mg/dL Normal 0.2-1.[address] [facility] Comment on above: Performed By: #### C MP, CRP, TSH, LIPID, CK #### [facility] [address] [place] [address] [address] Tracy Hubbard Calcium [Mass/Vol] 8.9 mg/dL Normal 8.5-10.1 [facility] Comment on above: Performed By: #### C MP, CRP, TSH, LIPID, CK #### [facility] [address] [place] [address] Dr. Tracy Hubbard Chloride [Moles/Vol] 103 mmol/L Normal 98-[address] [facility] Comment on above: Performed By: #### C MP, CRP, TSH, LIPID, CK #### [facility] [address] [place] [address] [address] Tracy Hubbard CO2 [Moles/Vol] 27.0 mmol/L Normal 21.0-32.0 [facility] Comment on above: Performed By: #### C MP, CRP, TSH, LIPID, CK #### [facility] [address] [place] [address] Dr. Tracy Hubbard Creatinine [Mass/Vol] 1.04 mg/dL Normal 0.70-1.[address] [facility] Comment on above: Performed By: #### C MP, CRP, TSH, LIPID, CK #### [facility] [address] [place] [address] [address] Tracy Hubbard EGFR-AF SUDANESE >60 Normal >=60 [facility] Comment on above: Performed By: #### C MP, CRP, TSH, LIPID, CK #### [facility] [address] [place] [address] Dr. Tracy Hubbard EGFR-NON AF SUDANESE >60 Normal >=[address] [facility] Comment on above: Performed By: #### C MP, CRP, TSH, LIPID, CK #### [facility] [address] [place] [address] [address] Tracy Hubbard Globulin (S) [Mass/Vol] 3.4 g/dL Normal [facility] Comment on above: Performed By: #### C MP, CRP, TSH, LIPID, CK #### [facility] [address] [place] [address] Dr. Tracy Hubbard Glucose [Mass/Vol] 124 mg/dL Critically high 74-106 T [facility] Comment on above: Performed By: #### C MP, CRP, TSH, LIPID, CK #### [facility] [address] [place] [address] Dr. Tracy Hubbard Potassium [Moles/Vol] 4.3 mmol/L Normal 3.5-5.[address] [facility] Comment on above: Performed By: #### C MP, CRP, TSH, LIPID, CK #### [facility] [address] [place] [address] Dr. Tracy Hubbard Protein [Mass/Vol] 7.5 g/dL Normal 6.4-8.2 [facility] Comment on above: Performed By: #### C MP, CRP, TSH, LIPID, CK #### [facility] [address] [place] [address] Dr. Tracy Hubbard Sodium [Moles/Vol] 138 mmol/L Normal 136-145 [facility] Comment on above: Performed By: #### C MP, CRP, TSH, LIPID, CK #### [facility] [address] [place] [address] Dr. Tracy Hubbard Urea nitrogen [Mass/Vol] 16.0 mg/dL Normal 7.0-18.[address] [facility] Comment on above: Performed By: #### C MP, CRP, TSH, LIPID, CK #### [facility] [address] [place] [address] Dr. Tracy Hubbard Urea nitrogen/Creatinine [Mass ratio] 15.4 mg/mg Normal [facility] Comment on above: Performed By: #### C MP, CRP, TSH, LIPID, CK #### [facility] [address] [place], [place] [address] Dr. Tracy Hubbard SED RATE WESTERGRENon 2022 SED RATE 9 mm/hr Normal <=[address] [facility] Comment on above: Performed By: #### S EDR #### [facility] [address] [place], [place] [address] Dr. Tracy Hubbard TSHon 07-29-2022 TSH 4.856 uIU/mL Critically high 0.358-3.[address] [facility] Comment on above: Performed By: #### C MP, CRP, TSH, LIPID, CK #### [facility] [address] [place], [place] [address] Dr. Tracy Hubbard XR hip RT min 2V(w/wo pelvis )*on 04-12-2022 XR hip RT min 2V(w/wo pelvis)* [facility] magn[employer]360 Other XR hip RT min 2V(w/wo pelvis)* [facility] magnify360 Other XR hip RT min 2V(w/wo pelvis)* [address] [place] [address] magnify360 Other XR hip RT min 2V(w/wo pelvis)* [place] [address] [employer] Other XR hip RT min 2V(w/wo pelvis)* XRay Report [employer] Other XR hip RT min 2V(w/wo pelvis)* Signed [employer] Other XR hip RT min 2V(w/wo pelvis)* Patient: Esme Steven MR#: [id number] [employer] Other XR hip RT min 2V(w/wo pelvis)* 3619 [employer] Other XR hip RT min 2V(w/wo pelvis)* : 1960 Acct:[id number] [employer] Other XR hip RT min 2V(w/wo pelvis)* Age/Sex: 61 / M ADM Date: 04/12/22 [employer] Other XR hip RT min 2V(w/wo pelvis)* Loc: [facility] Room: Type: REG CLI [employer] Other XR hip RT min 2V(w/wo pelvis)* Attending Dr: Jonathan Samano MD [employer] Other XR hip RT min 2V(w/wo pelvis)* Copies to: Jonathan Samano MD [employer] Other XR hip RT min 2V(w/wo pelvis)* Ordering Provider: Jonathan Samano MD [employer] Other XR hip RT min 2V(w/wo pelvis)* Date of Service: 04/12/22 [employer] Other XR hip RT min 2V(w/wo pelvis)* XR/XR hip RT min 2V(w/wo pelvis)*: Right hip pain [employer] Other XR hip RT min 2V(w/wo pelvis)* RIGHT HIP - 2 views: [employer] Other XR hip RT min 2V(w/wo pelvis)* CLINICAL HISTORY: Low back pain that radiates to right hip for years. No known injury. [employer] Other XR hip RT min 2V(w/wo pelvis)* COMPARISON: None [employer] Other XR hip RT min 2V(w/wo pelvis)* FINDINGS: Moderate degenerative changes of the right hip without acute bony process. Left hip [employer] Other XR hip RT min 2V(w/wo pelvis)* prosthesis is in place. [employer] Other XR hip RT min 2V(w/wo pelvis)* XR/XR hip RT min 2V(w/wo pelvis)* [employer] Other XR hip RT min 2V(w/wo pelvis)* IMPRESSION: [employer] Other XR hip RT min 2V(w/wo pelvis)* MODERATE DEGENERATIVE CHANGES OF THE RIGHT HIP WITHOUT ACUTE BONY PROCESS.. [employer] Other XR hip RT min 2V(w/wo pelvis)* Impression dictated by: Alex Castro Jr., D.OBarbara04/12/2022 12:57 PM [employer] Other XR hip RT min 2V(w/wo pelvis)* Dictation Location: [place] [address] [employer]360 Other XR hip RT min 2V(w/wo pelvis)* Transcribed By: PWS 04/12/22 [facility] magnify360 Other XR hip RT min 2V(w/wo pelvis)* Dictated By: Alex Castro Jr, DO 04/12/22 [facility] [employer] Other XR hip RT min 2V(w/wo pelvis)* Signed By: [employer] Other XR hip RT min 2V(w/wo pelvis)* 04/12/22 [facility] magn[employer]360 Other XR hand RT min 3V*on 022 XR hand RT min 3V* [facility] [employer] Other XR hand RT min 3V* [facility] [employer] Other XR hand RT min 3V* [address] [place] [address] [employer] Other XR hand RT min 3V* [place] [address] magnify360 Other XR hand RT min 3V* XRay Report [employer] Other XR hand RT min 3V* Signed [employer] Other XR hand RT min 3V* Patient: Law jose antonio Steven MR#: [id number] [employer] Other XR hand RT min 3V* 7635 [employer] Other XR hand RT min 3V* : 1960 Acct:[id number] [employer] Other XR hand RT min 3V* Age/Sex: 61 / M ADM Date: 02/15/22 [employer] Other XR hand RT min 3V* Loc: [facility] Room: Type : REG CLI [employer] Other XR hand RT min 3V* Attending Dr: Orlando Nichole MD [employer] Other XR hand RT min 3V* Copies to: Chio Nichole MD [employer] Other XR hand RT min 3V* Ordering Provider: Chio Nichole MD [employer] Other XR hand RT min 3V* Date of Service: 02/15/22 [employer] Other XR hand RT min 3V* XR/XR hand RT min 3V*: Right hand pain [employer] Other XR hand RT min 3V* [address] film [employer] Other XR hand RT min 3V* COMPARISON:05/23/21 [employer] Other XR hand RT min 3V* HISTORY:3rd metacarp al phalangeal joint pain. 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 Mild interphalangeal degenerative changes. No acute bony findings. 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 [employer] Other XR hand RT min 3V* Impression dictated by: Matt Ferrell M.D.02/15/2022 4:53 PM [employer] Other XR hand RT min 3V* Dictation Location: [place] [address] magnify360 Other XR hand RT min 3V* Transcribed By: [facility] 02/15/22 [facility] magnify360 Other XR hand RT min 3V* Dictated By: Pollo Ferrell DO 02/15/221651 magn[employer]360 Other XR hand RT min 3V* Signed By: [employer]360 Other XR hand RT min 3V* 02/15/[address] [place] [address] [employer] Other XR hip LT min 2V(w/wo pelvis )*on 09-28-2021 XR hip LT min 2V(w/wo pelvis)* [facility] [employer]360 Other XR hip LT min 2V(w/wo pelvis)* [facility] [place] magnify360 Other XR hip LT min 2V(w/wo pelvis)* [address] [facility] magnify360 Other XR hip LT min 2V(w/wo pelvis)* [place] [address] magnify360 Other XR hip LT min 2V(w/wo pelvis)* XRay Report [employer] Other XR hip LT min 2V(w/wo pelvis)* Signed [employer]360 Other XR hip LT min 2V(w/wo pelvis)* Patient: Esme Steven MR#: [id number] [employer] Other XR hip LT min 2V(w/wo pelvis)* 3415 magn[employer]360 Other XR hip LT min 2V(w/wo pelvis)* : 1960 Acct:[id number] [employer] Other XR hip LT min 2V(w/wo pelvis)* Age/Sex: 60 / M ADM Date: 09/28/21 magn[employer]360 Other XR hip LT min 2V(w/wo pelvis)* Loc: [facility] Room: [facility] magnify360 Other XR hip LT min 2V(w/wo pelvis)* Attending Dr: Sarai Mendez II, MD [employer]360 Other XR hip LT min 2V(w/wo pelvis)* Copies to: Sarai Mendez MD [employer]360 Other XR hip LT min 2V(w/wo pelvis)* Ordering Provider: Sarai Mendez MD [employer] Other XR hip LT min 2V(w/wo pelvis)* Date of Service: 09/28/21 [employer] Other XR hip LT min 2V(w/wo pelvis)* XR/XR hip LT min 2V(w/wo pelvis)*: S/P total left hip arthroplasty [employer] Other XR hip LT min 2V(w/wo pelvis)* 2 views LEFT hip single view pelvisplain film [employer]360 Other XR hip LT min 2V(w/wo pelvis)* COMPARISON:08/17/21 [employer] Other XR hip LT min 2V(w/wo pelvis)* HISTORY:Status post LEFT total hip arthroplasty [employer] Other XR hip LT min 2V(w/wo pelvis)* No fracture, dislocation or focal soft tissue abnormality seen.No hardware failure or loosening [employer]360 Other XR hip LT min 2V(w/wo pelvis)* identified. [employer]360 Other XR hip LT min 2V(w/wo pelvis)* XR/XR hip LT min 2V(w/wo pelvis)* [employer]360 Other XR hip LT min 2V(w/wo pelvis)* IMPRESSION:Stable LEFT hip arthroplasty. [id number] Other XR hip LT min 2V(w/wo pelvis)* Impression dictated by: Matt Ferrell M.D.09/28/2021 1:11 PM [id number] Other XR hip LT min 2V(w/wo pelvis)* Dictation Location: [facility]- [id number] Other XR hip LT min 2V(w/wo pelvis)* Transcribed By: PWS 09/28/21 1311 [id number] Other XR hip LT min 2V(w/wo pelvis)* Dictated By: Matt Ferrell DO 09/28/21 [facility] [id number] Other XR hip LT min 2V(w/wo pelvis)* Signed By: [email or web address] Other XR hip LT min 2V(w/wo pelvis)* 09/28/21 [facility] [id number] Other Laboratory - Hematology and Cell countson 06-02-2009 Lymphocytes/100 WBC (Bld) 14 % [facility] Neutrophils/100 WBC (Bld) 12 % 0 - 25 % [facility] No Panel Informationon 06-02 Clarity, [place] Slightly turbid Abnormal CLEAR [facility] Color, [place] Slightly bloody Abnormal YEL [facility] Macro%, SF 26 % [facility] Broward%, SF 24 % [facility] [place] [address] /uL [facility] Reac%, SF 6 % [facility] Site, SF Unknown [facility] Slide Number [id number] [facility] Supernatant Clarity, SF Unable to assay. Quantity not sufficient. Abnormal CLEAR [facility] Supernatant Color, SF Unable to assay. Q uantity not sufficient. Abnormal YEL [facility] Synovial CL% 18 % [facility] Synovial Comment Count may be inaccur ate due to Clumped on chamber Cellular disintegration [facility] Synovial Pathologist Interpretation Test Not Indicated [facility] Total Nucleated Cells, SF 200 /uL [facility] Vital Signs Date Time Vital Sign Value Performing Clinician Facility 01-12-2025 14:31-0400 Body height 179.07 cm Vitaliy Ball DO Work Phone: [facility] 01-12-2025 14:31-0400 Body mass index (BMI) [Ratio] 30.4 kg/m2 Vitaliy Ball DO Work Phone: [facility] 01-12-2025 [id number] Body weight 97.74 kg Vitaliy Ball DO Work Phone: [facility] 01-12-2025 14:31-0400 Diastolic blood pressure 81 mm[Hg] Vitaliy Ball DO Work Phone: [facility] 01-12-2025 14:31-0400 Heart rate 80 /min Vitaliy Ball DO Work Phone: [facility] 01-12-2025 14:31-0400 Respiratory rate 12 /min Vitaliy Ball DO Work Phone: [facility] 01-12-2025 14:31-0400 Systolic blood pressure 130 mm[Hg] Vitaliy Ball DO Work Phone: [facility] 01-07-2025 13:30-0400 Body height 179.07 cm Vitaliy Ball DO Work Phone: [facility] 01-07-2025 13:30-0400 Body mass index (BMI) [Ratio] 31.3 kg/m2 Vitaliy Ball DO Work Phone: [facility] 01-07-2025 13:30-0400 Body weight 100.41 kg Vitaliy Ball DO Work Phone: [facility] 01-07-2025 13:30-0400 Diastolic blood pressure 80 mm[Hg] Vitaliy Ball DO Work Phone: [facility] 01-07-2025 13:30-0400 Heart rate 61 /min Vitaliy Ball DO Work Phone: [facility] 01-07-2025 13:30-0400 Systolic blood pressure 129 mm[Hg] Vitaliy Ball DO Work Phone: [facility] 12-26-2024 09:43-0400 Body height 179.07 cm Vitaliy Ball DO Work Phone: [facility] 12-26-2024 09:43-0400 Body mass index (BMI) [Ratio] 31.3 kg/m2 Vitaliy Ball DO Work Phone: [facility] 12-26-2024 09:43-0400 Body weight 100.41 kg Vitaliy Ball DO Work Phone: [facility] 12-26-2024 09:43-0400 Diastolic blood pressure 81 mm[Hg] Vitaliy Ball DO Work Phone: [facility] 12-26-2024 09:43-0400 Heart rate 76 /min Vitaliy Ball DO Work Phone: [facility] 12-26-2024 09:43-0400 Respiratory rate 12 /min Vitaliy Ball DO Work Phone: [facility] 12-26-2024 09:43-0400 Systolic blood pressure 123 mm[Hg] Vitaliy Ball DO Work Phone: [facility] 12-22-2024 11:25-0400 Body height 179.1 cm Antonio Steele MD Work Phone: [facility] 12-22-2024 11:25-0400 Body mass index (BMI) [Ratio] 31.69 kg/m2 Antonio Steele MD Work Phone: [facility] 12-22-2024 11:25-0400 Body weight 101.61 kg Antonio Steele MD Work Phone: [facility] 12-22-2024 11:25-0400 Diastolic blood pressure 80 mm[Hg] Antonio Steele MD Work Phone: [facility] 12-22-2024 11:25-0400 Heart rate 62 /min Antonio Steele MD Work Phone: [facility] 12-22-2024 11:25-0400 Systolic blood pressure 130 mm[Hg] Antonio Steele MD Work Phone: [facility] 12-15-2024 14:53-0400 Body height 177.8 cm [facility] 12-15-2024 14:53-0400 Body mass index (BMI) [Ratio] 32.14 kg/m2 Keila [facility] 12-15-2024 14:53-0400 Body weight 101.61 kg [facility] 12-15-2024 14:53-0400 Diastolic blood pressure 80 mm[Hg] [facility] 14:53-0400 Heart rate 74 /min Keila [facility] 12-15-2024 14:53-0400 Systolic blood pressure 108 mm[Hg] [facility] 12-12-2024 08:00-0400 Diastolic blood pressure 83 mm[Hg] Vitaliy Ball DO Work Phone: [facility] 12-12-2024 08:00-0400 Heart rate 77 /min Vitaliy Ball DO Work Phone: [facility] 12-12-2024 08:00-0400 Respiratory rate 16 /min Vitaliy Ball DO Work Phone: [facility] 12-12-2024 08:00-0400 SaO2% (BldA) [Mass fraction] 98 % Vitaliy Ball DO Work Phone: [facility] 12-12-2024 08:00-0400 Systolic blood pressure 127 mm[Hg] Vitlaiy Ball DO Work Phone: [facility] 12-12-2024 06:00-0400 Body weight 98 kg Ivtaliy Ball DO Work Phone: [facility] 12-12-2024 04:00-0400 Body temperature 97.9 [degF] Vitaliy Ball DO Work Phone: [facility] 12-11-2024 12:53-0400 Body height 179.07 cm Vitaliy Ball DO Work Phone: [facility] 11-19-2024 12:44-0400 Body height 177.8 cm Antonio Steele MD Work Phone: [facility] 11-19-2024 12:44-0400 Body mass index (BMI) [Ratio] 32.71 kg/m2 Antonio Steele MD Work Phone: [facility] 11-19-2024 12:44-0400 Body weight 103.42 kg Antonio Steele MD Work Phone: [facility] 11-19-2024 12:44-0400 Diastolic blood pressure 80 mm[Hg] Antonio Steele MD Work Phone: [facility] 11-19-2024 12:44-0400 Heart rate 98 /min Antonio Steele MD Work Phone: [facility] 11-19-2024 12:44-0400 Systolic blood pressure 110 mm[Hg] Antonio Steele MD Work Phone: [facility] 10-23-2024 14:28-0400 Diastolic blood pressure 78 mm[Hg] Vitaliy Ball DO Work Phone: [facility] 10-23-2024 14:28-0400 Systolic blood pressure 126 mm[Hg] Vitaliy Ball DO Work Phone: [facility] 10-08-2024 13:58-0400 Body height 177.8 cm Vitaliy Ball DO Work Phone: [facility] 10-08-2024 13:58-0400 Body mass index (BMI) [Ratio] 32 kg/m2 Vitaliy Ball DO Work Phone: [facility] 10-08-2024 13:58-0400 Body weight 101.15 kg Vitaliy Ball DO Work Phone: [facility] 10-08-2024 13:58-0400 Diastolic blood pressure 77 mm[Hg] Vitaliy Ball DO Work Phone: [facility] 10-08-2024 13:58-0400 Heart rate 109 /min Vitaliy Ball DO Work Phone: [facility] 10-08-2024 13:58-0400 Respiratory rate 12 /min Vitaliy Ball DO Work Phone: [facility] 10-08-2024 13:58-0400 SaO2% (BldA) [Mass fraction] 98 % Vitaliy Ball DO Work Phone: [facility] 10-08-2024 13:58-0400 Systolic blood pressure 124 mm[Hg] Vitaliy Ball DO Work Phone: [facility] 10-01-2024 11:14-0400 Diastolic blood pressure 72 mm[Hg] Vitaliy Ball DO Work Phone: [facility] 10-01-2024 11:14-0400 Heart rate 97 /min Vitaliy Ball DO Work Phone: [facility] 10-01-2024 11:14-0400 Respiratory rate 18 /min Vitaliy Ball DO Work Phone: [facility] 10-01-2024 11:14-0400 SaO2% (BldA) [Mass fraction] 95 % Vitaliy Ball DO Work Phone: [facility] 10-01-2024 11:14-0400 Systolic blood pressure 106 mm[Hg] Vitaliy Ball DO Work Phone: [facility] 10-01-2024 11:05-0400 Body height 177.8 cm Vitaliy Ball DO Work Phone: [facility] 10-01-2024 08:25-0400 Body temperature 97.9 [degF] Vitaliy Ball DO Work Phone: [facility] 10-01-2024 05:45-0400 Body weight 93.5 kg Vitaliy Ball DO Work Phone: [facility] 09-29-2024 17:10-0400 Diastolic blood pressure 84 mm[Hg] Vitaliy Ball DO Work Phone: [facility] 09-29-2024 17:10-0400 Heart rate 84 /min Vitaliy Ball DO Work Phone: [facility] 09-29-2024 17:10-0400 SaO2% (BldA) [Mass fraction] 98 % Vitaliy Ball DO Work Phone: [facility] 09-29-2024 17:10-0400 Systolic blood pressure 106 mm[Hg] Vitaliy Ball DO Work Phone: [facility] 09-29-2024 16:15-0400 Body temperature 97.7 [degF] Vitaliy Ball DO Work Phone: [facility] 09-29-2024 15:14-0400 Respiratory rate 17 /min Vitaliy Ball DO Work Phone: [facility] 09-29-2024 03:31-0400 Body height 180.34 cm Vitaliy Ball DO Work Phone: [facility] 09-29-2024 03:31-0400 Body weight 100.2 kg Vitaliy Ball DO Work Phone: [facility] 09-09-2024 12:50-0400 Diastolic blood pressure 63 mm[Hg] Vitaliy Ball DO Work Phone: [facility] 09-09-2024 12:50-0400 Heart rate 80 /min Vitaliy Ball DO Work Phone: [facility] 09-09-2024 12:50-0400 Respiratory rate 25 /min Vitaliy Ball DO Work Phone: [facility] 09-09-2024 12:50-0400 SaO2% (BldA) [Mass fraction] 96 % Vitaliy Ball DO Work Phone: [facility] 09-09-2024 12:50-0400 Systolic blood pressure 98 mm[Hg] Vitaliy Ball DO Work Phone: [facility] 09-09-2024 10:10-0400 Inhaled oxygen flow rate 3 L/min Vitaliy Ball DO Work Phone: [facility] 09-08-2024 12:00-0400 Body height 179.07 cm Vitaliy Ball DO Work Phone: [facility] 09-08-2024 12:00-0400 Body weight 105 kg Vitaliy Ball DO Work Phone: [facility] 08-22-2024 08:59-0400 Body height 179.1 cm Antonio Steele MD Work Phone: [facility] 08-22-2024 08:59-0400 Body mass index (BMI) [Ratio] 32.82 kg/m2 Antonio Steele MD Work Phone: [facility] 08-22-2024 08:59-0400 Body weight 105.23 kg Antonio Steele MD Work Phone: [facility] 08-22-2024 08:59-0400 Diastolic blood pressure 86 mm[Hg] Antonio Steele MD Work Phone: [facility] 08-22-2024 08:59-0400 Heart rate 95 /min Antonio Steele MD Work Phone: [facility] 08-22-2024 08:59-0400 Systolic blood pressure 132 mm[Hg] Antonio Steele MD Work Phone: [facility] 08-19-2024 16:08-0400 Body height 177.8 cm Vitaliy Ball DO Work Phone: [facility] 08-19-2024 16:08-0400 Body mass index (BMI) [Ratio] 32.8 kg/m2 Vitaliy Ball DO Work Phone: [facility] 08-19-2024 16:08-0400 Body weight 104 kg Vitaliy Ball DO Work Phone: [facility] 08-19-2024 16:08-0400 Diastolic blood pressure 60 mm[Hg] Vitaliy Ball DO Work Phone: [facility] 08-19-2024 16:08-0400 Heart rate 98 /min Vitaliy Ball DO Work Phone: [facility] 08-19-2024 16:08-0400 Respiratory rate 12 /min Vitaliy Ball DO Work Phone: [facility] 08-19-2024 16:08-0400 SaO2% (BldA) [Mass fraction] 97 % Vitaliy Ball DO Work Phone: [facility] 08-19-2024 16:08-0400 Systolic blood pressure 92 mm[Hg] Vitaliy Ball DO Work Phone: [facility] 08-13-2024 11:52-0400 Diastolic blood pressure 71 mm[Hg] Vitaliy Ball DO Work Phone: [facility] 08-13-2024 11:52-0400 Heart rate 85 /min Vitaliy Ball DO Work Phone: [facility] 08-13-2024 11:52-0400 Respiratory rate 18 /min Vitaliy Ball DO Work Phone: [facility] 08-13-2024 11:52-0400 SaO2% (BldA) [Mass fraction] 95 % Vitaliy Ball DO Work Phone: [facility] 08-13-2024 11:52-0400 Systolic blood pressure 107 mm[Hg] Vitaliy Ball DO Work Phone: [facility] 08-13-2024 07:33-0400 Body temperature 97.5 [degF] Vitaliy Ball DO Work Phone: [facility] 08-13-2024 05:12-0400 Body weight 105.5 kg Vitaliy Ball DO Work Phone: [facility] 08-12-2024 15:39-0400 Body height 177.8 cm Vitaliy Ball DO Work Phone: [facility] 08-11-2024 11:49-0400 Diastolic blood pressure 75 mm[Hg] Vitaliy Ball DO Work Phone: [facility] 08-11-2024 11:49-0400 Heart rate 106 /min Vitaliy Ball DO Work Phone: [facility] 08-11-2024 11:49-0400 Systolic blood pressure 118 mm[Hg] Vitaliy Ball DO Work Phone: [facility] 08-11-2024 11:44-0400 Respiratory rate 16 /min Vitaliy Ball DO Work Phone: [facility] 08-11-2024 11:44-0400 SaO2% (BldA) [Mass fraction] 91 % Vitaliy Ball DO Work Phone: [facility] 08-11-2024 10:03-0400 Body height 177.8 cm Vitaliy Ball DO Work Phone: [facility] 08-11-2024 10:03-0400 Body temperature 99.1 [degF] Vitaliy Ball DO Work Phone: [facility] 08-11-2024 10:03-0400 Body weight 107.9 kg Vitaliy Ball DO Work Phone: [facility] 08-06-2024 12:00-0400 Body height 177.8 cm Vitaliy Ball DO Work Phone: [facility] 08-06-2024 12:00-0400 Body mass index (BMI) [Ratio] 33.5 kg/m2 Vitaliy Ball DO Work Phone: [facility] 08-06-2024 12:00-0400 Body weight 106.14 kg Vitaliy Ball DO Work Phone: [facility] 08-01-2024 11:09-0400 Body height 177.8 cm Vitaliy Ball DO Work Phone: [facility] 08-01-2024 11:09-0400 Body temperature 98 [degF] Vitaliy Ball DO Work Phone: [facility] 08-01-2024 11:09-0400 Body weight 106.7 kg Vitaliy Ball DO Work Phone: [facility] 08-01-2024 11:09-0400 Diastolic blood pressure 92 mm[Hg] Vitaliy Ball DO Work Phone: [facility] 08-01-2024 11:09-0400 Heart rate 61 /min Vitaliy Ball DO Work Phone: [facility] 08-01-2024 11:09-0400 Respiratory rate 18 /min Vitaliy Ball DO Work Phone: [facility] 08-01-2024 11:09-0400 SaO2% (BldA) [Mass fraction] 95 % Vitaliy Ball DO Work Phone: [facility] 08-01-2024 11:09-0400 Systolic blood pressure 134 mm[Hg] Vitaliy Ball DO Work Phone: [facility] 07-30-2024 10:00-0400 Body height 180.34 cm Vitaliy Ball DO Work Phone: [facility] 07-30-2024 10:00-0400 Body mass index (BMI) [Ratio] 32.8 kg/m2 Vitaliy Ball DO Work Phone: [facility] 07-30-2024 10:00-0400 Body weight 106.59 kg Vitaliy Ball DO Work Phone: [facility] 07-30-2024 10:00-0400 Diastolic blood pressure 82 mm[Hg] Vitaliy Ball DO Work Phone: [facility] 07-30-2024 10:00-0400 Heart rate 75 /min Vitaliy Ball DO Work Phone: [facility] 07-30-2024 10:00-0400 Respiratory rate 12 /min Vitaliy Ball DO Work Phone: [facility] 07-30-2024 10:00-0400 Systolic blood pressure 116 mm[Hg] Vitaliy Ball DO Work Phone: [facility] 07-01-2024 13:36-0400 Body height 180.34 cm Vitaliy Ball DO Work Phone: [facility] 07-01-2024 13:36-0400 Body mass index (BMI) [Ratio] 33.6 kg/m2 Vitaliy Ball DO Work Phone: [facility] 07-01-2024 13:36-0400 Body weight 109.31 kg Vitaliy Ball DO Work Phone: [facility] 07-01-2024 13:36-0400 Diastolic blood pressure 79 mm[Hg] Vitaliy Ball DO Work Phone: [facility] 07-01-2024 13:36-0400 Heart rate 116 /min Vitaliy Ball DO Work Phone: [facility] 07-01-2024 13:36-0400 Respiratory rate 12 /min Vitaliy Ball DO Work Phone: [facility] 07-01-2024 13:36-0400 Systolic blood pressure 114 mm[Hg] Vitaliy Ball DO Work Phone: [facility] 06-30-2024 09:38-0400 Body mass index (BMI) [Ratio] 33.37 kg/m2 Heladio Pineda MD Work Phone: [facility] 06-30-2024 09:38-0400 Body weight 107 kg Heladio Pineda MD Work Phone: [facility] 06-30-2024 09:38-0400 Diastolic blood pressure 85 mm[Hg] Heladio Pineda MD Work Phone: [facility] 06-30-2024 09:38-0400 Heart rate 81 /min Heladio Pineda MD Work Phone: [facility] 06-30-2024 09:38-0400 Systolic blood pressure 136 mm[Hg] Heladio Pineda MD Work Phone: [facility] 05-02-2024 14:11-0500 Body height 180.34 cm [facility] 05-02-2024 14:11-0500 Body mass index (BMI) [Ratio] 33.2 kg/m2 [facility] 05-02-2024 14:11-0500 Body weight 108.06 kg [facility] 05-02-2024 14:11-0500 Diastolic blood pressure 82 mm[Hg] [facility] 05-02-2024 14:11-0500 Heart rate 111 /min [facility] 05-02-2024 14:11-0500 Respiratory rate 12 /min [facility] 05-02-2024 14:11-0500 Systolic blood pressure 115 mm[Hg] [facility] 03-17-2024 15:30-0500 Body height 180.34 cm [facility] 03-17-2024 15:30-0500 Body mass index (BMI) [Ratio] 32.9 kg/m2 [facility] 03-17-2024 15:30-0500 Body temperature 97.3 [degF] [facility] 03-17-2024 15:30-0500 Body weight 107.16 kg [facility] 03-17-2024 15:30-0500 Diastolic blood pressure 79 mm[Hg] [facility] 03-17-2024 15:30-0500 Heart rate 111 /min [facility] 03-17-2024 15:30-0500 Respiratory rate 12 /min [facility] 03-17-2024 15:30-0500 Systolic blood pressure 118 mm[Hg] [facility] 02-14-2024 13:51-0500 Body height 177.8 cm Antonio Steele MD Work Phone: [facility] 02-14-2024 13:51-0500 Body mass index (BMI) [Ratio] 35.01 kg/m2 Antonio Steele MD Work Phone: [facility] 02-14-2024 13:51-0500 Body weight 110.68 kg Antonio Steele MD Work Phone: [facility] 02-14-2024 13:51-0500 Diastolic blood pressure 80 mm[Hg] Antonio Steele MD Work Phone: [facility] 02-14-2024 13:51-0500 Systolic blood pressure 130 mm[Hg] Antonio Steele MD Work Phone: [facility] 01-29-2024 13:21-0400 Diastolic blood pressure 84 mm[Hg] Bird Kowalski MD Work Phone: [facility] 01-29-2024 13:21-0400 Heart rate 67 /min Bird Kowalski MD Work Phone: [facility] 01-29-2024 13:21-0400 Respiratory rate 15 /min Bird Kowalski MD Work Phone: [facility] 01-29-2024 13:21-0400 SaO2% (BldA) [Mass fraction] 95 % Bird Kowalski MD Work Phone: [facility] 01-29-2024 13:21-0400 Systolic blood pressure 138 mm[Hg] Bird Kowalski MD Work Phone: [facility] 01-29-2024 09:49-0400 Body height 179.1 cm Bird Kowalski MD Work Phone: [facility] 01-29-2024 09:49-0400 Body mass index (BMI) [Ratio] 34.6 kg/m2 Bird Kowalski MD Work Phone: [facility] 01-29-2024 09:49-0400 Body weight 111 kg Bird Kowalski MD Work Phone: [facility] 12-31-2023 13:42-0400 Diastolic blood pressure 84 mm[Hg] DO Vitaliy Ball Work Phone: [facility] 12-31-2023 13:42-0400 Heart rate 70 /min DO Vitaliy Ball Work Phone: [facility] 12-31-2023 13:42-0400 Respiratory rate 16 /min DO Vitaliy Ball Work Phone: [facility] 12-31-2023 13:42-0400 SaO2% (BldA) [Mass fraction] 98 % DO Vitaliy Ball Work Phone: [facility] 12-31-2023 13:42-0400 Systolic blood pressure 135 mm[Hg] DO Vitaliy Ball Work Phone: [facility] 12-31-2023 10:41-0400 Body height 179.07 cm DO Vitaliy Ball Work Phone: [facility] 12-31-2023 10:41-0400 Body weight 105.23 kg DO Vitaliy Ball Work Phone: [facility] 12-19-2023 10:00-0400 Body height 179.1 cm Bird Kowalski MD Work Phone: [facility] 12-19-2023 10:00-0400 Body mass index (BMI) [Ratio] 34.52 kg/m2 Bird Kowalski MD Work Phone: [facility] 12-19-2023 10:00-0400 Body temperature 97.5 [degF] Bird Kowalski MD Work Phone: [facility] 12-19-2023 10:00-0400 Body weight 110.68 kg Bird Kowalski MD Work Phone: [facility] 12-19-2023 10:00-0400 Diastolic blood pressure 77 mm[Hg] Bird Kowalski MD Work Phone: [facility] 12-19-2023 10:00-0400 Heart rate 73 /min Bird Kowalski MD Work Phone: [facility] 12-19-2023 10:00-0400 Respiratory rate 16 /min Bird Kowalski MD Work Phone: [facility] 12-19-2023 10:00-0400 SaO2% (BldA) [Mass fraction] 95 % Bird Kowalski MD Work Phone: [facility] 12-19-2023 10:00-0400 Systolic blood pressure 121 mm[Hg] Bird Kowalski MD Work Phone: [facility] 11-19-2023 14:26-0400 Body height 167.64 cm DO Vitaliy Ball Work Phone: [facility] 11-19-2023 14:26-0400 Body mass index (BMI) [Ratio] 37.8 kg/m2 DO Vitaliy Ball Work Phone: [facility] 11-19-2023 14:26-040 Body weight 106.31 kg DO Vitaliy Ball Work Phone: [facility] 11-19-2023 14:26-0400 Diastolic blood pressure 85 mm[Hg] DO Vitaliy Ball Work Phone: [facility] 11-19-2023 14:26-0400 Heart rate 80 /min DO Vitaliy Ball Work Phone: [facility] 11-19-2023 14:26-0400 Respiratory rate 12 /min DO Vitaliy Ball Work Phone: [facility] 11-19-2023 14:26-0400 Systolic blood pressure 134 mm[Hg] DO Vitaliy Ball Work Phone: [facility] 10-18-2023 14:32-0400 Body mass index (BMI) [Ratio] 33.95 kg/m2 Antonio Steele MD Work Phone: [facility] 10-18-2023 14:32-0400 Body weight 108.86 kg Antonio Steele MD Work Phone: [facility] 10-18-2023 14:32-0400 Diastolic blood pressure 84 mm[Hg] Antonio Steele MD Work Phone: [facility] 10-18-2023 14:32-0400 Heart rate 82 /min Antonio Steele MD Work Phone: [facility] 10-18-2023 14:32-0400 Systolic blood pressure 132 mm[Hg] Antonio Steele MD Work Phone: [facility] 09-07-2023 13:17-0400 Body height 167.64 cm DO Vitaliy Ball Work Phone: [facility] 09-07-2023 13:17-0400 Body mass index (BMI) [Ratio] 38.5 kg/m2 DO Vitaliy Ball Work Phone: [facility] 09-07-2023 13:17-0400 Body weight 108.12 kg DO Vitaliy Ball Work Phone: [facility] 09-07-2023 13:17-0400 Diastolic blood pressure 91 mm[Hg] DO Vitaliy Ball Work Phone: [facility] 09-07-2023 13:17-0400 Heart rate 78 /min DO Vitaliy Ball Work Phone: [facility] 09-07-2023 13:17-0400 Respiratory rate 12 /min DO Vitaliy Ball Work Phone: [facility] 09-07-2023 13:17-0400 Systolic blood pressure 136 mm[Hg] DO Vitaliy Ball Work Phone: [facility] 09-01-2023 11:29-0400 Body temperature 97.8 [degF] DO Vitaliy Ball Work Phone: [facility] 09-01-2023 11:29-0400 Diastolic blood pressure 80 mm[Hg] DO Vitaliy Ball Work Phone: [facility] 09-01-2023 11:29-0400 Heart rate 88 /min DO Vitaliy Ball Work Phone: [facility] 09-01-2023 11:29-0400 Respiratory rate 16 /min DO Vitaliy Ball Work Phone: [facility] 09-01-2023 11:29-0400 SaO2% (BldA) [Mass fraction] 98 % DO Vitaliy Ball Work Phone: [facility] 09-01-2023 11:29-0400 Systolic blood pressure 140 mm[Hg] DO Vitaliy Ball Work Phone: [facility] 09-01-2023 05:17-0400 Body weight 113 kg DO Vitaliy Ball Work Phone: [facility] 08-31-2023 13:01-0400 Body height 177.8 cm DO Vitaliy Ball Work Phone: [facility] 08-30-2023 22:00-0400 Diastolic blood pressure 67 mm[Hg] DO Vitaliy Ball Work Phone: [facility] 08-30-2023 22:00-0400 Heart rate 86 /min DO Vitaliy Ball Work Phone: [facility] 08-30-2023 22:00-0400 Respiratory rate 21 /min DO Vitaliy Ball Work Phone: [facility] 08-30-2023 22:00-0400 SaO2% (BldA) [Mass fraction] 93 % DO Vitaliy Ball Work Phone: [facility] 08-30-2023 22:00-0400 Systolic blood pressure 107 mm[Hg] DO Vitaliy Ball Work Phone: [facility] 08-30-2023 20:00-0400 Body temperature 99.8 [degF] DO Vitaliy Ball Work Phone: [facility] 08-30-2023 16:29-0400 Body height 177.8 cm DO Vitaliy Ball Work Phone: [facility] 08-30-2023 16:29-0400 Body weight 105.23 kg DO Vitaliy Ball Work Phone: [facility] 08-16-2023 11:36-0400 Body height 179.1 cm [facility] 08-16-2023 11:36-0400 Body mass index (BMI) [Ratio] 34.52 kg/m2 [facility] 08-16-2023 11:36-0400 Body weight 110.68 kg [facility] 08-16-2023 11:36-0400 Diastolic blood pressure 74 mm[Hg] [facility] 08-16-2023 11:36-0400 Heart rate 75 /min [facility] 08-16-2023 11:36-0400 Systolic blood pressure 124 mm[Hg] [facility] 08-02-2023 09:29-0400 Inhaled oxygen flow rate 3 L/min DO Vitaliy Ball Work Phone: [facility] 08-02-2023 09:29-0400 SaO2% (BldA) [Mass fraction] 95 % DO Vitaliy Ball Work Phone: [facility] 08-01-2023 13:58-0400 Body height 177.8 cm DO Vitaliy Ball Work Phone: [facility] 08-01-2023 13:58-0400 Body weight 111 kg DO Vitaliy Ball Work Phone: [facility] 07-27-2023 11:14-0400 Diastolic blood pressure 80 mm[Hg] Antonio Steele MD Work Phone: [facility] 07-27-2023 11:14-0400 Systolic blood pressure 110 mm[Hg] Antonio Steele MD Work Phone: [facility] 07-27-2023 11:13-0400 Body height 177.8 cm Antonio Steele MD Work Phone: [facility] 07-27-2023 11:13-0400 Body mass index (BMI) [Ratio] 35.15 kg/m2 Antonio Steele MD Work Phone: [facility] 07-27-2023 11:13-0400 Body weight 111.13 kg Antonio Steele MD Work Phone: [facility] 07-27-2023 11:13-0400 Heart rate 91 /min Antonio Steele MD Work Phone: [facility] 06-29-2023 10:00-0400 Body height 177.8 cm DO Vitaliy Ball Work Phone: [facility] 06-29-2023 10:00-0400 Body mass index (BMI) [Ratio] 35.7 kg/m2 DO Vitaliy Ball Work Phone: [facility] 06-29-2023 10:00-0400 Body weight 113.11 kg DO Vitaliy Ball Work Phone: [facility] 06-29-2023 10:00-0400 Diastolic blood pressure 84 mm[Hg] DO Vitaliy Ball Work Phone: [facility] 06-29-2023 10:00-0400 Heart rate 86 /min DO Vitaliy Ball Work Phone: [facility] 06-29-2023 10:00-0400 Respiratory rate 12 /min DO Vitaliy Ball Work Phone: [facility] 06-29-2023 10:00-0400 Systolic blood pressure 119 mm[Hg] DO Vitaliy Ball Work Phone: [facility] 06-04-2023 14:08-0500 Body height 177.8 cm Sarai Velasco MD Work Phone: [employer] 06-04-2023 14:08-0500 Body mass index (BMI) [Ratio] 34.15 kg/m2 Sarai Velasco MD Work Phone: [employer] 06-04-2023 14:08-0500 Body weight 107.96 kg Sarai Velasco MD Work Phone: [employer] 06-04-2023 14:08-0500 Diastolic blood pressure 80 mm[Hg] Sarai Velasco MD Work Phone: [employer] 06-04-2023 14:08-0500 Heart rate 94 /min Sarai Velasco MD Work Phone: [employer] 06-04-2023 14:08-0500 SaO2% (BldA) [Mass fraction] 94 % Sarai Velasco MD Work Phone: [employer] 06-04-2023 14:08-0500 Systolic blood pressure 114 mm[Hg] Sarai Velasco MD Work Phone: [employer] 05-07-2023 11:00-0500 Body height 177.8 cm Sukhjinder Montesinos Other [facility] 05-07-2023 11:00-0500 Body mass index (BMI) [Ratio] 34.72 kg/m2 Sukhjinder Montesinos Other [facility] [employer] Other 05-07-2023 11:00-0500 Body weight 109.76 kg DO Vitaliy Ball Work Phone: [facility] 05-07-2023 11:00-0500 Body weight 109.77 kg Sukhjinder Yamel Other [facility] [employer] Other 05-02-2023 10:45-0500 Body height 177.8 cm Vitaliy Ball Other [facility] 05-02-2023 10:45-0500 Body mass index (BMI) [Ratio] 34.72 kg/m2 Vitaliy Ball Other [address] [employer] Other 05-02-2023 10:45-0500 Body weight 109.77 kg Vitaliy Ball Other [facility] [employer] Other 05-02-2023 10:45-0500 Body weight 109.76 kg DO Vitaliy Ball Work Phone: [facility] 05-02-2023 10:45-0500 Diastolic blood pressure 85 mm[Hg] Vitaliy Ball Other [facility] 05-02-2023 10:45-0500 Respiratory rate 12 /min Vitaliy Ball Other [facility] [employer] Other 05-02-2023 10:45-0500 Systolic blood pressure 122 mm[Hg] Vitaliy Ball Other [facility] 04-05-2023 10:15-0500 Body height 177.8 cm Vitaliy Ball Other [facility] 04-05-2023 10:15-0500 Body mass index (BMI) [Ratio] 34.29 kg/m2 Vitaliy Ball Other [facility] [employer] Other 04-05-2023 10:15-0500 Body weight 108.41 kg Vitaliy Ball Other [facility] [employer] Other 04-05-2023 10:15-0500 Body weight 108.4 kg DO Vitaliy Ball Work Phone: [facility] 04-05-2023 10:15-0500 Diastolic blood pressure 58 mm[Hg] Vitaliy Ball Other [facility] 04-05-2023 10:15-0500 Respiratory rate 12 /min Vitaliy Ball Other [facility] [employer] Other 04-05-2023 10:15-0500 Systolic blood pressure 88 mm[Hg] Vitaliy Ball Other [facility] 03-15-2023 11:15-0500 Body height 177.8 cm Sukhjinder Montesinos Other [facility] 03-15-2023 11:15-0500 Body mass index (BMI) [Ratio] 34.29 kg/m2 Sukhjinder Montesinos Other [email or web address] Other 03-15-2023 11:15-0500 Body weight 108.41 kg Sukhjinder Montesinos Other [facility] [employer] Other 03-15-2023 11:15-0500 Body weight 108.4 kg DO Vitaliy Ball Work Phone: [facility] 03-05-2023 13:28-0500 Body weight 106.59 kg Heladio Pineda MD Work Phone: [facility] 03-05-2023 13:28-0500 Diastolic blood pressure 81 mm[Hg] Heladio Pineda MD Work Phone: [facility] 03-05-2023 13:28-0500 Heart rate 110 /min Healdio Pineda MD Work Phone: [facility] 03-05-2023 13:28-0500 Systolic blood pressure 124 mm[Hg] Heladio Pineda MD Work Phone: [facility] 02-13-2023 15:00-0500 Diastolic blood pressure 68 mm[Hg] DO Vitaliy Ball Work Phone: [facility] 02-13-2023 15:00-0500 Heart rate 75 /min DO Vitaliy Ball Work Phone: [facility] 02-13-2023 15:00-0500 Respiratory rate 16 /min DO Vitaliy Ball Work Phone: [facility] 02-13-2023 15:00-0500 SaO2% (BldA) [Mass fraction] 94 % DO Vitaliy Ball Work Phone: [facility] 02-13-2023 15:00-0500 Systolic blood pressure 111 mm[Hg] DO Vitaliy Ball Work Phone: [facility] 02-13-2023 11:45-0500 Inhaled oxygen flow rate 1 L/min DO Vitaliy Ball Work Phone: [facility] 02-13-2023 10:48-0500 Body temperature 99.2 [degF] DO Vitaliy Ball Work Phone: [facility] 02-13-2023 06:59-0500 Body height 179.07 cm DO Vitaliy Ball Work Phone: [facility] 02-13-2023 06:59-0500 Body mass index (BMI) [Ratio] 34 kg/m2 DO Vitaliy Ball Work Phone: [facility] 02-13-2023 06:59-0500 Body weight 109 kg DO Vitaliy Ball Work Phone: [facility] 01-24-2023 15:15-0400 Body height 177.8 cm Vitaliy Ball Other [facility] [employer] Other 01-24-2023 15:15-0400 Body mass index (BMI) [Ratio] 34.32 kg/m2 Vitaliy Ball Other [facility] [employer] Other 01-24-2023 15:15-0400 Body weight 108.5 kg Vitaliy Ball Other [email or web address] Other 01-24-2023 15:15-0400 Diastolic blood pressure 69 mm[Hg] Vitaliy Ball Other [employer] Other 01-24-2023 15:15-0400 Respiratory rate 12 /min Vitaliy Ball Other [employer] Other 01-24-2023 15:15-0400 Systolic blood pressure 107 mm[Hg] Vitaliy Ball Other [employer] Other 01-05-2023 10:55-0400 Body height 179.1 cm Heladio Pineda MD Work Phone: [facility] 01-05-2023 10:55-0400 Body weight 107.5 kg Heladio Pineda MD Work Phone: [facility] 01-05-2023 10:55-0400 Diastolic blood pressure 74 mm[Hg] Heladio Pineda MD Work Phone: [facility] 01-05-2023 10:55-0400 Heart rate 71 /min Heladio Pineda MD Work Phone: [facility] 01-05-2023 10:55-0400 Systolic blood pressure 143 mm[Hg] Heladio Pineda MD Work Phone: [facility] 01-02-2023 10:30-0400 Body height 177.8 cm Vitaliy Ball Other [employer] Other 01-02-2023 10:30-0400 Body mass index (BMI) [Ratio] 34.4 kg/m2 Vitaliy Ball Other [employer] Other 01-02-2023 10:30-0400 Body weight 108.77 kg Vitaliy Ball Other [employer] Other 01-02-2023 10:30-0400 Diastolic blood pressure 78 mm[Hg] Vitaliy Ball Other [employer] Other 01-02-2023 10:30-0400 Respiratory rate 12 /min Vitaliy Ball Other [employer] Other 01-02-2023 10:30-0400 Systolic blood pressure 120 mm[Hg] Vitaliy Ball Other [employer] Other 11-13-2022 15:15-0400 Body height 177.8 cm Vitaliy Ball Other [employer] Other 11-13-2022 15:15-0400 Body mass index (BMI) [Ratio] 33.86 kg/m2 Vitaliy Ball Other [employer] Other 11-13-2022 15:15-0400 Body weight 107.05 kg Vitaliy Ball Other [employer] Other 11-13-2022 15:15-0400 Diastolic blood pressure 75 mm[Hg] Vitaliy Ball Other [employer] Other 11-13-2022 15:15-0400 Respiratory rate 12 /min Vitaliy Ball Other [employer] Other 11-13-2022 15:15-0400 Systolic blood pressure 112 mm[Hg] Vitaliy Ball Other [employer] Other 10-25-2022 14:45-0400 Body height 177.8 cm Vitaliy Ball Other [employer] Other 10-25-2022 14:45-0400 Body mass index (BMI) [Ratio] 35.24 kg/m2 Vitaliy Ball Other [employer] Other 10-25-2022 14:45-0400 Body weight 111.4 kg Vitaliy Ball Other [employer] Other 10-25-2022 14:45-0400 Diastolic blood pressure 76 mm[Hg] Vitaliy Ball Other [employer] Other 10-25-2022 14:45-0400 Respiratory rate 12 /min Vitaliy Ball Other [employer] Other 10-25-2022 14:45-0400 Systolic blood pressure 112 mm[Hg] Vitaliy Ball Other [employer] Other 10-11-2022 15:50-0400 Diastolic blood pressure 67 mm[Hg] DO Vitaliy Ball Work Phone: [facility] 10-11-2022 15:50-0400 Heart rate 75 /min DO Vitaliy Ball Work Phone: [facility] 10-11-2022 15:50-0400 Respiratory rate 20 /min DO Vitaliy Ball Work Phone: [facility] 10-11-2022 15:50-0400 SaO2% (BldA) [Mass fraction] 95 % DO Vitaliy Ball Work Phone: [facility] 10-11-2022 15:50-0400 Systolic blood pressure 110 mm[Hg] DO Vitaliy Ball Work Phone: [facility] 10-03-2022 08:30-0400 Body height 177.8 cm Vitaliy Ball Other [facility] [employer] Other 10-03-2022 08:30-0400 Body mass index (BMI) [Ratio] 36.01 kg/m2 Vitaliy Ball Other [address] [employer] Other 10-03-2022 08:30-0400 Body weight 113.85 kg Vitaliy Ball Other [address] [employer] Other 10-03-2022 08:30-0400 Diastolic blood pressure 86 mm[Hg] Vitaliy Ball Other [employer] Other 10-03-2022 08:30-0400 Respiratory rate 12 /min Vitaliy Ball Other [employer] Other 10-03-2022 08:30-0400 Systolic blood pressure 133 mm[Hg] Vitaliy Ball Other [employer] Other 08-09-2022 10:00-0400 Body height 177.8 cm Vitaliy Ball Other [employer] Other 08-09-2022 10:00-0400 Body mass index (BMI) [Ratio] 36.21 kg/m2 Vitaliy Ball Other [employer] Other 08-09-2022 10:00-0400 Body weight 114.49 kg Vitaliy Ball Other [employer] Other 08-09-2022 10:00-0400 Diastolic blood pressure 68 mm[Hg] Vitaliy Ball Other [employer] Other 08-09-2022 10:00-0400 SaO2% (BldA) [Mass fraction] 94 % Vitaliy Ball Other [employer] Other 08-09-2022 10:00-0400 Systolic blood pressure 121 mm[Hg] Vitaliy Ball Other [employer] Other 07-28-2022 10:30-0400 Body height 177.8 cm Vitaliy Ball Other [employer] Other 07-28-2022 10:30-0400 Body mass index (BMI) [Ratio] 36.67 kg/m2 Vitaliy Ball Other [employer] Other 07-28-2022 10:30-0400 Body weight 115.94 kg Vitaliy Ball Other [employer] Other 07-28-2022 10:30-0400 Diastolic blood pressure 76 mm[Hg] Vitaliy Ball Other [employer] Other 07-28-2022 10:30-0400 Respiratory rate 16 /min Vitaliy Ball Other [employer] Other 07-28-2022 10:30-0400 Systolic blood pressure 122 mm[Hg] Vitaliy Ball Other [employer] Other 05-23-2022 15:15-0500 Body height 177.8 cm Vitaliy Ball Other [employer] Other 05-23-2022 15:15-0500 Body mass index (BMI) [Ratio] 37.47 kg/m2 Vitaliy Ball Other [employer] Other 05-23-2022 15:15-0500 Body weight 118.48 kg Vitaliy Ball Other [employer] Other 05-23-2022 15:15-0500 Diastolic blood pressure 72 mm[Hg] Vitaliy Ball Other [address] [employer] Other 05-23-2022 15:15-0500 Respiratory rate 12 /min Vitaliy Ball Other [employer] Other 05-23-2022 15:15-0500 Systolic blood pressure 122 mm[Hg] Vitaliy Ball Other [employer] Other 05-22-2022 14:01-0500 Body height 177.8 cm DO Vitaliy Ball Work Phone: [facility] 05-22-2022 14:01-0500 Body temperature 99 [degF] DO Vitaliy Ball Work Phone: [facility] 05-22-2022 14:01-0500 Body weight 116.95 kg DO Vitaliy Ball Work Phone: [facility] 05-22-2022 14:01-0500 Diastolic blood pressure 96 mm[Hg] DO Vitaliy Ball Work Phone: [facility] 05-22-2022 14:01-0500 Heart rate 77 /min DO Vitaliy Ball Work Phone: [facility] 05-22-2022 14:01-0500 Respiratory rate 18 /min DO Vitaliy Ball Work Phone: [facility] 05-22-2022 14:01-0500 SaO2% (BldA) [Mass fraction] 95 % DO Vitaliy Ball Work Phone: [facility] 05-22-2022 14:01-0500 Systolic blood pressure 163 mm[Hg] DO Vitaliy Ball Work Phone: [facility] 02-15-2022 15:00-0500 Body height 177.8 cm Chio Nichole Other [email or web address] Other 02-15-2022 15:00-0500 Body mass index (BMI) [Ratio] 34.15 kg/m2 Chio Nichole Other [employer] Other 02-15-2022 15:00-0500 Body weight 107.96 kg Chio Nichole Other [employer] Other 02-13-2022 11:00-0500 Body height 177.8 cm Jonathan Samano Other [employer] Other 09-28-2021 12:15-0400 Body height 177.8 cm Sarai Mecklenburg II Other [employer] Other 06-17-2021 09:15-0500 Body height 177.8 cm Sarai Andrea II Other [employer] Other 06-17-2021 09:15-0500 Body mass index (BMI) [Ratio] 34.15 kg/m2 Sarai Mecklenburg II Other [employer] Other 06-17-2021 09:15-0500 Body weight 107.96 kg Sarai Mecklenburg II Other [employer] Other 02-22-2021 15:45-0500 Body height 177.8 cm Jonathan Samano Other [employer] Other 02-22-2021 15:45-0500 Body mass index (BMI) [Ratio] 34.43 kg/m2 Jonathan Samano Other [employer] Other 02-22-2021 15:45-0500 Body weight 108.86 kg Jonathan Samano Other [employer] Other 01-05-2021 10:45-0400 Body height 177.8 cm Jonathan Samano Other [employer] Other 01-05-2021 10:45-0400 Body mass index (BMI) [Ratio] 34.43 kg/m2 Jonathan Samano Other [employer] Other 01-05-2021 10:45-0400 Body weight 108.86 kg Jonathan Samano Other [email or web address] Other Encounters Encounter Date Encounter Type Care Provider Facility Start: 01-12-2025 End: 01-12-2025 ambulatory Vitaliy Ball DO Work Phone: [facility] Work Phone: Start: 01-12-2025 End: 01-12-2025 Patient encounter procedure Vitaliy Ball DO -[facility] Work Phone: Start: 01-07-2025 End: 01-07-2025 Patient encounter procedure Sarai Antunez MD -[facility] Start: 01-07-2025 End: 01-07-2025 ambulatory Vitaliy Ball DO Work Phone: [facility] Work Phone: Start: 01-07-2025 End: 01-07-2025 Patient encounter procedure Sarai Antunez MD -[facility] Work Phone: Start: 01-05-2025 End: 01-05-2025 ambulatory Vitaliy Ball DO Work Phone: [facility] Work Phone: Start: 01-05-2025 End: 01-05-2025 Patient encounter procedure Jonathan Krause MD -[facility] Work Phone: Start: 12-29-2024 End: 12-29-2024 ambulatory Vitaliy Brower DO Work Phone: [facility] Work Phone: Start: 12-29-2024 End: 12-29-2024 Patient encounter procedure Jonathan Krause MD -[facility] Work Phone: Start: 12-26-2024 End: 12-26-2024 ambulatory Vitaliy Brower DO Work Phone: [facility] Work Phone: Start: 12-26-2024 End: 12-26-2024 Patient encounter procedure Vitaliy Brower DO -[facility] Work Phone: Start: 12-22-2024 End: 12-22-2024 Office outpatient visit 25 minutes Antonio Steele MD Work Phone: [facility] Comment on above: Status post aorto-co ronary artery bypass graft (Primary Dx); Multi-vessel coronary artery stenosis; Presence of Watchman left atrial appendage closure device; Persistent atrial fibrillation (Multi); Mixed hyperlipidemia; Dilated aortic root; Cardiomyopathy, ischemic; Never smoked cigarettes; Obesity (BMI 30-39.9) Start: 12-22-2024 End: 12-22-2024 ambulatory [facility] Start: 12-18-2024 Non-patient / Non-visit Marcela Dickerson [facility] Work Phone: Start: 2024 Non-patient / Non-visit Casimiro Antunez PA-C -[facility] Work Phone: Start: 12-15-2024 End: 12-15-2024 Professional / ancillary services management Keila Garcia [facility] Start: 12-15-2024 End: 12-15-2024 ambulatory [facility] Start: 12-15-2024 Non-patient / Non-visit Marcela Dickerson C[facility] Work Phone: Start: 12-15-2024 End: 12-15-2024 ambulatory Vitaliy Ball DO Work Phone: [facility] Work Phone: Start: 12-15-2024 End: 12-15-2024 Patient encounter procedure Jonathan Krause MD -[facility] Work Phone: Start: 12-09-2024 End: 12-12-2024 Evaluation and management of inpatient Antonio Steele MD -[facility] Work Phone: Start: 11-19-2024 End: 11-19-2024 Office outpatient visit 40 minutes Antonio Steele MD Work Phone: [facility] Comment on above: Persistent atrial fi brillation (Multi) (Primary Dx); Multi-vessel coronary artery stenosis; Status post aorto-coronary artery bypass graft; Presence of Watchman left atrial appendage closure device; Mixed hyperlipidemia; Dilated aortic root; Cardiomyopathy, ischemic; Never smoked cigarettes; BMI 32.0-32.9,adult Start: 11-19-2024 End: 11-19-2024 ambulatory [facility] Start: 10-23-2024 End: 10-23-2024 ambulatory Vitaliy Ball DO Work Phone: [facility] Work Phone: Start: 10-23-2024 End: 10-23-2024 Patient encounter procedure Sarai Antunez MD -[facility] Work Phone: Start: 10-23-2024 End: 10-23-2024 Patient encounter procedure Sarai Antunez MD -[facility] Start: 10-23-2024 End: 10-23-2024 ambulatory Vitaliy Ball DO Work Phone: [facility] Work Phone: Start: 10-08-2024 End: 10-08-2024 ambulatory Vitaliy Ball DO Work Phone: [facility] Work Phone: Start: 10-08-2024 End: 10-08-2024 Patient encounter procedure Vitaliy Brower DO -[facility] Work Phone: Start: 09-30-2024 End: 10-01-2024 ambulatory Leidy Nuno Facility:[facility] Start: 09-30-2024 End: 10-01-2024 Evaluation and management of inpatient Leidy Nuno DO -[facility] Work Phone: Start: 09-30-2024 End: 10-01-2024 observation encounter Vitaliy Brower DO Work Phone: [facility] Work Phone: Start: 09-29-2024 End: 09-29-2024 Evaluation and management of inpatient Tomy Cabello MD -[facility] Work Phone: Start: 09-29-2024 End: 09-29-2024 ambulatory Vitaliy Brower Facility:[facility] Start: 09-28-2024 Non-patient / Non-visit Fang tan MD -[facility] Work Phone: Start: 09-26-2024 End: 09-26-2024 ambulatory Heladio Pineda MD Work Phone: Rheumatology Comment on above: Pseudogout involving multiple joints (Primary Dx); Idiopathic chronic gout of multiple sites without tophus; Secondary osteoarthritis of multiple sites; PMR (polymyalgia rheumatica) (HCC); CHENCHO positive; Bilateral hand pain; Long-term use of high-risk medication; Chronic hip pain, bilateral; Rotator cuff arthropathy of left shoulder; 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; Bilateral hand [...] osteoarthritis of multiple sites; PMR (polymyalgia rheumatica) ([facility]); CHENCHO positive; Bilateral hand pain; Long-term use of high-risk medication; Chronic hip pain, bilateral Start: 09-13-2024 End: 09-13-2024 Telemedicine consultation with patient Heladio Pineda MD Work Phone: Rheumatology Start: 09-13-2024 End: 09-15-2024 ambulatory HELADIO PINEDA Facility:[facility] Start: 09-09-2024 End: 09-09-2024 Admission to same day surgery center Vitaliy Brower DO Work Phone: [facility] Work Phone: Start: 09-09-2024 End: 09-09-2024 ambulatory Vitaliy Brower DO Work Phone: [facility] Work Phone: Start: 08-31-2024 End: 09-02-2024 Telephone encounter Heladio Pineda MD Work Phone: Rheumatology Comment on above: Orders; Appointment Start: 08-22-2024 End: 08-22-2024 Office outpatient visit 25 minutes Antonio Steele MD Work Phone: [facility] Comment on above: Persistent atrial fi brillation (Multi) (Primary Dx); Multi-vessel coronary artery stenosis; Status post aorto-coronary artery bypass graft; Mixed hyperlipidemia; Dilated aortic root (CMS-HCC); Cardiomyopathy, ischemic; Presence of Watchman left atrial appendage closure device; BMI 32.0-32.9,adult; Never smoked cigarettes Start: 08-22-2024 End: 08-22-2024 ambulatory [facility] Start: 08-19-2024 End: 08-19-2024 ambulatory Vitaliy Ball DO Work Phone: [facility] Work Phone: Start: 08-19-2024 End: 08-19-2024 Patient encounter procedure Vitaliy Ball DO Work Phone: [facility] Work Phone: Start: 08-12-2024 Non-patient / Non-visit Benjam in Ball DO Work Phone: [facility] Work Phone: Start: 08-12-2024 Non-patient / Non-visit Benjam in Ball DO Work Phone: [facility] Work Phone: Start: 08-11-2024 End: 08-13-2024 ambulatory Mohamad Godwin Facility:[facility] Start: 08-11-2024 End: 08-13-2024 Evaluation and management of inpatient Vitaliy Ball DO Work Phone: [facility] Work Phone: Start: 08-11-2024 observation encounter Vitaliy Ball DO Work Phone: [facility] Work Phone: Start: 08-06-2024 End: 08-06-2024 ambulatory Vitaliy Ball DO Work Phone: [facility] Work Phone: Start: 08-06-2024 End: 08-06-2024 Patient encounter procedure Vitaliy Ball DO Work Phone: [facility] Work Phone: Start: 08-04-2024 End: 08-04-2024 Patient encounter procedure Vitaliy Ball DO Work Phone: [facility] Work Phone: Start: 08-04-2024 End: 08-04-2024 ambulatory Vitaliy Ball DO Work Phone: [facility] Work Phone: Start: 08-01-2024 End: 08-01-2024 Emergency department patient visit Vitaliy Brower DO Work Phone: [facility] Work Phone: Start: 07-30-2024 End: 07-30-2024 ambulatory Vitaliy Brower DO Work Phone: [facility] Work Phone: Start: 07-30-2024 End: 07-30-2024 Patient encounter procedure Vitaliy Brower DO Work Phone: [facility] Work Phone: Start: 07-07-2024 End: 07-07-2024 Telephone encounter Heladio Pineda MD Work Phone: Rheumatology Comment on above: Results Start: 07-01-2024 End: 07-01-2024 ambulatory Vitaliy Ball DO Work Phone: [facility] Work Phone: Start: 07-01-2024 End: 07-01-2024 Patient encounter procedure Vitaliy Brower DO Work Phone: [facility] Work Phone: Start: 06-30-2024 Non-patient / Non-visit Benjnickolas in Inocente DO Work Phone: [facility] Work Phone: Start: 06-30-2024 End: 06-30-2024 ambulatory HELADIO PINEDA Facility:[facility] Start: 06-30-2024 End: 06-30-2024 Patient encounter procedure Heladio Pineda MD Work Phone: Rheumatology Comment on above: PMR (polymyalgia rhe umatica) (HCC) (Primary Dx); Elevated LFTs; Anemia of chronic disease; Elevated sed rate; Elevated C-reactive protein (CRP); Vitamin D deficiency; Hyperuricemia; Idiopathic chronic gout of multiple sites without tophus; Secondary osteoarthritis of multiple sites; Pseudogout involving multiple joints; 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; Chronic pain of both knees; CHENCHO positive; Bilateral hand pain; Bilateral hand swelling; Bilateral arm weakness; Leg weakness, bilateral; Rotator cuff arthropathy of left shoulder; Long-term use of high-risk medication Start: 06-13-2024 End: 06-13-2024 Subsequent hospital visit by physician [id number] [facility] Comment on above: Atrial fibrillation, unspecified type (Multi) Start: 06-13-2024 End: 06-13-2024 ambulatory [facility] Start: 05-29-2024 End: 05-29-2024 Patient encounter procedure Vitaliy Brower DO Work Phone: [facility] [place] Work Phone: Start: 05-29-2024 End: 05-29-2024 ambulatory Vitaliy Ball DO Work Phone: [facility] Work Phone: Start: 05-02-2024 End: 05-02-2024 ambulatory [facility] Work Phone: Start: 05-02-2024 End: 05-02-2024 Patient encounter procedure [facility] Work Phone: Start: 04-22-2024 Non-patient / Non-visit [facility] Work Phone: Start: 04-02-2024 End: 04-08-2024 Refill Sarai Velasco MD Work Phone: [facility] Comment on above: Med Refill Start: 03-17-2024 End: 03-17-2024 Patient encounter procedure [facility] Work Phone: Start: 02-18-2024 End: 02-18-2024 ambulatory Vitaliy Ball DO Work Phone: [facility] Work Phone: Start: 02-18-2024 End: 02-18-2024 Patient encounter procedure Vitaliy Brower DO Work Phone: [facility] Work Phone: Start: 02-14-2024 End: 02-14-2024 Office outpatient visit 25 minutes Antonio Steele MD Work Phone: [facility] Comment on above: Persistent atrial fi brillation (Multi) (Primary Dx); Status post aorto-coronary artery bypass graft; Presence of Watchman left atrial appendage closure device; Multi-vessel coronary artery stenosis; Mixed hyperlipidemia; Cardiomyopathy, ischemic; Dilated aortic root (CMS-HCC); Never smoked cigarettes; BMI 35.0-35.9,adult Start: 02-14-2024 End: 02-14-2024 ambulatory [facility] Start: 02-12-2024 End: 02-12-2024 ambulatory DO Vitaliy Brower Work Phone: [facility] Work Phone: Start: 02-12-2024 End: 02-12-2024 Patient encounter procedure DO Vitaliy Brower Work Phone: [facility] Work Phone: Start: 01-29-2024 End: 01-29-2024 Preprocedural examination done Bird Kowalski MD Work Phone: [facility] Work Phone: Start: 01-29-2024 End: 01-29-2024 Evaluation and management of inpatient Bird Kowalski MD Work Phone: [facility] Comment on above: Atrial fibrillation, unspecified type (Multi) (Primary Dx); Preoperative examination; Presence of Watchman left atrial appendage closure device Start: 01-28-2024 Encounter for other preprocedural examination BIRD KOWALSKI [facility] Start: 01-28-2024 Evaluation and management of inpatient BIRD KOWALSKI [facility] Start: 01-24-2024 End: 01-24-2024 Patient encounter procedure DO Vitaliy Brower Work Phone: [facility] [place] Work Phone: Start: 01-24-2024 End: 01-24-2024 ambulatory DO Vitaliy Brower Work Phone: [facility] Work Phone: Start: 12-31-2023 Non-patient / Non-visit DO Eris Brower Work Phone: [facility] Work Phone: Start: 12-31-2023 Non-patient / Non-visit DO Eris Brower Work Phone: [facility] Work Phone: Start: 12-31-2023 End: 12-31-2023 Admission to same day surgery center DO Vitaliy Brower Work Phone: [facility] Work Phone: Start: 12-31-2023 End: 12-31-2023 ambulatory DO Vitaliy Brower Work Phone: [facility] Work Phone: Start: 12-30-2023 Evaluation and management of inpatient BIRD J [facility] Start: 12-19-2023 End: 12-19-2023 Office outpatient new 45 minutes Bird Kowalski MD Work Phone: [facility] Comment on above: Paroxysmal atrial fi brillation (Multi) (Primary Dx); Persistent atrial fibrillation (Multi) Start: 12-19-2023 End: 12-19-2023 ambulatory [facility] Start: 12-13-2023 End: 2023 Refill Heladio Pineda MD Work Phone: Rheumatology Comment on above: Refill Request Start: 11-21-2023 Non-patient / Non-visit DO Eris Brower Work Phone: [facility] Work Phone: Start: 11-19-2023 End: 11-19-2023 ambulatory DO Vitaliy Brower Work Phone: [facility] Work Phone: Start: 11-19-2023 End: 11-19-2023 Encounter for general adult medical examination without abnormal findings DO Vitaliy Brower Work Phone: [facility] Start: 11-19-2023 End: 11-19-2023 Patient encounter procedure DO Vitaliy Brower Work Phone: [facility] Work Phone: Start: 10-18-2023 End: 10-18-2023 Office outpatient visit 25 minutes Antonio Steele MD Work Phone: [facility] Comment on above: Persistent atrial fi brillation (Multi) (Primary Dx); Status post aorto-coronary artery bypass graft; Mixed hyperlipidemia; Cardiomyopathy, ischemic; Multi-vessel coronary artery stenosis; BMI 35.0-35.9,adult; Never smoked cigarettes Start: 10-02-2023 End: 10-02-2023 ambulatory DO Vitaliy Brower Work Phone: [facility] Work Phone: Start: 10-02-2023 End: 10-02-2023 Patient encounter procedure DO Vitaliy Brower Work Phone: [facility] Work Phone: Start: 09-19-2023 End: 09-19-2023 ambulatory SANTOS CABRERA Not Available Start: 09-09-2023 Telephone encounter Heladio alvarado MD Work Phone: Rheumatology Comment on above: Results Start: 09-07-2023 End: 09-07-2023 ambulatory DO Vitaliy Brower Work Phone: [facility] Work Phone: Start: 09-07-2023 End: 09-07-2023 Patient encounter procedure DO Vitaliy Brower Work Phone: [facility] Work Phone: Start: 09-07-2023 Non-patient / Non-visit DO Eris Brower Work Phone: [facility] Work Phone: Start: 09-05-2023 Refill Heladio Pineda MD Work Phone: Rheumatology Comment on above: Refill Request Start: 09-05-2023 Non-patient / Non-visit DO Eris Brower Work Phone: [facility] Work Phone: Start: 08-30-2023 End: 09-01-2023 Evaluation and management of inpatient DO Vitaliy Brower Work Phone: [facility] [place] [facility] Work Phone: Start: 08-16-2023 End: 08-16-2023 Professional / ancillary services management Ky Navarro MA [facility] Comment on above: Paroxysmal atrial fi brillation (Multi) Start: 08-02-2023 End: 08-02-2023 Admission to same day surgery center DO Vitaliy Brower Work Phone: [facility]-Electrodiagnostics Work Phone: Start: 08-02-2023 End: 08-02-2023 ambulatory DO Vitaliy Brower Work Phone: [facility] Work Phone: Start: 07-27-2023 End: 07-27-2023 Office outpatient new 60 minutes Antonio Steele MD Work Phone: [facility] Comment on above: Persistent atrial fi brillation (Multi) (Primary Dx); Multi-vessel coronary artery stenosis; Cardiomyopathy, ischemic; Mixed hyperlipidemia; 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 (Multi); Status post aorto-coronary artery bypass graft; 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; BMI 35.0-35.9,adult Start: 07-09-2023 Telephone encounter Heladio alvarado MD Work Phone: Rheumatology Comment on above: Results Start: 07-05-2023 Non-patient / Non-visit DO Eris Brower Work Phone: [facility] Work Phone: Start: 06-30-2023 Telephone encounter Heladio alvarado MD Work Phone: Rheumatology Comment on above: Results; Orders Start: 06-29-2023 End: 06-29-2023 ambulatory DO Vitaliy Brower Work Phone: [facility] Work Phone: Start: 06-29-2023 End: 06-29-2023 Patient encounter procedure DO Vitaliy Brower Work Phone: [facility] Work Phone: Start: 06-28-2023 ambulatory UNKNOWN PROVIDER Facili ty:[facility] Start: 06-28-2023 End: 06-28-2023 Subsequent hospital visit by physician Bone Density [facility] Comment on above: 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 Start: 06-11-2023 Telephone encounter Ambar Figueroa LPN [facility] Comment on above: EP Surgery ( Pt Educ ation) Start: 06-06-2023 End: 06-06-2023 Patient encounter procedure DO Vitaliy Brower Work Phone: [facility] Work Phone: Start: 06-04-2023 End: 06-04-2023 [facility] Start: 06-04-2023 End: 06-04-2023 Office outpatient visit 40 minutes Sarai Velasco MD Work Phone: [facility] Comment on above: Persistent atrial fi brillation (CMS-HCC) (Primary Dx); Coronary artery disease involving lone pine coronary artery of lone pine heart without angina pectoris Start: 06-04-2023 Telephone encounter Ambar Figueroa LPN [facility] Comment on above: EP Surgery (CDVN) Start: 06-04-2023 Non-patient / Non-visit DO Eris Brower Work Phone: [facility] Work Phone: Start: 06-01-2023 [facility] Start: 05-21-2023 End: 05-21-2023 ambulatory DO Vitaliy Brower Work Phone: [facility] Work Phone: Start: 05-21-2023 End: 05-21-2023 Patient encounter procedure DO Vitaliy Brower Work Phone: [facility] [place] Work Phone: Start: 05-21-2023 End: 05-21-2023 Patient encounter procedure DO Vitaliy Brower Work Phone: [facility] [place] [facility] Start: 05-21-2023 End: 05-21-2023 ambulatory DO Vitaliy Brower Work Phone: [facility] Work Phone: Start: 05-21-2023 Office outpatient vi sit 15 minutes Melinda Verduzco [facility] [place] Start: 05-21-2023 Telephone encounter Sarai Mendez II [facility] Start: 05-18-2023 End: 05-18-2023 ambulatory Vitaliy Ball Other [email or web address] Other Start: 05-18-2023 Telephone encounter Vitaliy Brower [facility] Start: 05-16-2023 Office outpatient vi sit 15 minutes Sarai Mendez II [facility] Start: 05-16-2023 End: 05-16-2023 ambulatory DO Vitaliy Ball Work Phone: [facility] Work Phone: Start: 05-16-2023 End: 05-16-2023 Patient encounter procedure DO Vitaliy Ball Work Phone: [facility] Start: 05-07-2023 End: 05-07-2023 ambulatory Sukhjinder Montesinos Other [email or web address] Other Start: 05-07-2023 Office outpatient vi sit 25 minutes Sukhjinder Montesinos [facility] Start: 05-07-2023 End: 05-07-2023 Patient encounter procedure DO Vitaliy Ball Work Phone: [facility]- Start: 05-02-2023 End: 05-02-2023 ambulatory Vitaliy Ball Other [email or web address] Other Start: 05-02-2023 Office outpatient vi sit 15 minutes Vitaliy Ball [facility] Start: 05-02-2023 End: 05-02-2023 Patient encounter procedure DO Vitaliy Ball Work Phone: [facility]- Start: 04-18-2023 End: 04-19-2023 [facility] Start: 04-18-2023 Telephone encounter Florence Fermin RN [facility] Start: 04-12-2023 End: 04-12-2023 ambulatory Vitaliy Ball Other [email or web address] Other Start: 04-12-2023 Office outpatient vi sit 15 minutes Vitaliy Ball [facility] Start: 04-12-2023 Patient encounter procedure DO Vitaliy Ball Work Phone: [facility]- Start: 04-11-2023 End: 04-11-2023 ambulatory Sarai Mendez II Other [email or web address] Other Start: 04-11-2023 Postop follow up vis it related to original px Sarai Mecklenburg II [facility] Start: 04-06-2023 End: 04-06-2023 ambulatory Vitaliy Brower Other [employer] Other Start: 04-06-2023 Telephone encounter Vitaliy Brower [facility] Start: 04-05-2023 End: 04-05-2023 ambulatory Vitaliy Brower Other [employer] Other Start: 04-05-2023 Office outpatient vi sit 15 minutes Vitaliy Brower [facility] Start: 04-05-2023 End: 04-05-2023 Patient encounter procedure DO Vitaliy Inocente Work Phone: [facility] Work Phone: Start: 03-29-2023 Postop follow up vis it related to original px Sarai Mecklenburg II [facility] Start: 03-29-2023 End: 03-29-2023 ambulatory DO Vitaliy Brower Work Phone: [facility] Work Phone: Start: 03-29-2023 End: 03-29-2023 Patient encounter procedure DO Vitaliy Brower Work Phone: [facility] [place] [facility] Start: 03-15-2023 End: 03-15-2023 ambulatory Sukhjinder Montesinos Other [email or web address] Other Start: 03-15-2023 Office outpatient vi sit 25 minutes Sukhjinder Montesinos [facility] Start: 03-15-2023 Postop follow up vis it related to original px Melinda Luba [facility] Start: 03-15-2023 End: 03-15-2023 Patient encounter procedure DO Vitaliy Ball Work Phone: [facility] Work Phone: Start: 03-12-2023 End: 03-12-2023 ambulatory Sarai Mecklenburg II Other [employer] Other Start: 03-12-2023 Telephone encounter Sarai Mendez II [facility] Start: 03-07-2023 End: 03-07-2023 ambulatory Vitaliy Brower Other [employer] Other Start: 03-07-2023 Postop follow up vis it related to original px Sarai Sandersethel MULLINS [facility] Start: 03-07-2023 Telephone encounter Vitaliy Brower [facility] Comment on above: Results Start: 03-05-2023 End: 03-05-2023 ambulatory Vitaliy Brower Other [employer] Other Start: 03-05-2023 End: 03-05-2023 Patient encounter procedure Heladio Pineda MD Work Phone: Rheumatology Comment on above: PMR (polymyalgia rhe umatica) (HCC) (Primary Dx); Elevated sed rate; Elevated C-reactive protein (CRP); Idiopathic chronic gout of multiple sites without tophus; Pseudogout involving multiple joints; Secondary osteoarthritis of multiple sites; Rotator cuff arthropathy of left shoulder; Pain in right hip; 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; CHENCHO positive; Chronic pain of both knees; Bilateral hand pain Start: 03-05-2023 Telephone encounter Vitaliy Brower [facility] Start: 03-02-2023 Refill Heladio Pineda MD Work Phone: Rheumatology Comment on above: Refill Request Start: 02-28-2023 End: 02-28-2023 ambulatory Melinda Luba Other [email or web address] Other Start: 02-28-2023 Postop follow up vis it related to original px Melinda Luba [facility] Start: 02-16-2023 End: 02-16-2023 ambulatory Sarai Sandersethel MULLINS Other [employer] Other Start: 02-16-2023 Telephone encounter Sarai Mendez II [facility] Start: 02-13-2023 Telephone encounter Vitaliy Brower [facility] Start: 02-13-2023 End: 02-13-2023 Admission to same day surgery center DO Vitaliy Brower Work Phone: [facility] [place] Start: 02-13-2023 End: 02-13-2023 ambulatory DO Vitaliy Brower Work Phone: [facility] Work Phone: Start: 02-12-2023 End: 02-12-2023 ambulatory Sukhjinder Montesinos Other [employer] Other Start: 02-12-2023 Telephone encounter Sukhjinder Yamel [facility] Start: 02-06-2023 End: 02-06-2023 ambulatory Sarai Mecklenburg II Other [employer] Other Start: 02-06-2023 Telephone encounter Sarai Mecklenburg II [facility] Start: 02-02-2023 (Prolonged) Prolonge d Services Sarai Andrea II [facility] Start: 02-02-2023 End: 02-02-2023 ambulatory Sarai Mecklenburg II Other [employer] Other Start: 01-31-2023 End: 01-31-2023 ambulatory Sarai Andrea II Other [employer] Other Start: 01-31-2023 Patient encounter procedure Sarai Mecklenburg II [facility] Start: 01-26-2023 End: 01-26-2023 ambulatory DO Vitaliy Brower Work Phone: [facility] Work Phone: Start: 01-26-2023 End: 01-26-2023 Patient encounter procedure DO Vitaliy Brower Work Phone: [facility]-Pre-Surgical Testing Work Phone: Start: 01-24-2023 End: 01-24-2023 ambulatory Vitaliy Brower Other [employer] Other Start: 01-24-2023 Office outpatient vi sit 15 minutes Vitaliy Brower 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 Start: 01-02-2023 Office outpatient vi sit 25 minutes Vitaliy Brower [facility] Start: 12-26-2022 End: 12-26-2022 ambulatory Melinda Verduzco Other [employer] Other Start: 12-26-2022 Office outpatient vi sit 15 minutes Melinda Verduzco [facility] Start: 12-20-2022 End: 12-20-2022 ambulatory Vitaliy Brower Other [employer] Other Start: 12-20-2022 Telephone encounter Vitaliy Brower [facility] Start: 12-04-2022 End: 12-04-2022 ambulatory Vitaliy Brower Other [employer] Other Start: 12-04-2022 Telephone encounter Vitaliy Brower [facility] Start: 11-23-2022 End: 11-23-2022 ambulatory Vitaliy Brower Other [employer] Other Start: 11-23-2022 Telephone encounter Vitaliy ESTRADA [facility] Start: 11-22-2022 End: 11-22-2022 ambulatory Sarai Mendez II Other [employer] Other Start: 11-22-2022 Telephone encounter Sarai Mendez II [facility] Start: 11-21-2022 End: 11-21-2022 ambulatory Melinda Verduzco Other [employer] Other Start: 11-21-2022 Office outpatient vi sit 15 minutes Melinda Verduzco [facility] Start: 11-13-2022 End: 11-13-2022 Patient encounter procedure DO Vitaliy Ball Work Phone: [facility] [place] Work Phone: Start: 11-13-2022 End: 11-13-2022 ambulatory DO Vitaliy Ball Work Phone: [facility] Work Phone: Start: 11-06-2022 End: 11-06-2022 ambulatory Vitaliy Brower Other [employer] Other Start: 11-06-2022 Telephone encounter Vitaliy Brower [facility] Start: 11-01-2022 (Procedure) Binta Samano [facility] Start: 11-01-2022 End: 11-01-2022 ambulatory Jonathan Samano Other [employer] Other Start: 10-26-2022 End: 10-26-2022 ambulatory DO Vitaliy Ball Work Phone: [facility] Work Phone: Start: 10-26-2022 End: 10-26-2022 Patient encounter procedure DO Vitaliy Ball Work Phone: [facility] Start: 10-25-2022 End: 10-25-2022 ambulatory Vitaliy Ball Other [employer] Other Start: 10-25-2022 Office outpatient vi sit 15 minutes Vitaliy Ball [facility] Start: 10-11-2022 End: 10-11-2022 Emergency department patient visit DO Vitaliy Ball Work Phone: [facility]-Emergency Room Work Phone: Start: 10-05-2022 End: 10-05-2022 ambulatory Sarai Mendez II Other [employer] Other Start: 10-05-2022 Telephone encounter Sarai Mendez II [facility] Start: 10-04-2022 End: 10-04-2022 ambulatory Vitaliy Ball Other [employer] Other Start: 10-04-2022 Telephone encounter Vitaliy Brower [facility] Start: 10-03-2022 End: 10-03-2022 ambulatory Vitaliy Ball Other [employer] Other Start: 10-03-2022 Office outpatient vi sit 15 minutes Vitaliy Ball [facility] Start: 10-02-2022 Telephone encounter Jonathan ESTRADA [facility] Start: 10-02-2022 End: 10-02-2022 ambulatory DO Vitaliy Ball Work Phone: [facility] Work Phone: Start: 10-02-2022 End: 10-02-2022 Patient encounter procedure DO Vitaliy Ball Work Phone: [facility] [address] Work Phone: Start: 09-27-2022 End: 09-27-2022 ambulatory Vitaliy Ball Other [employer] Other Start: 09-27-2022 Telephone encounter Vitaliy [facility]er [facility] Start: 08-29-[address] VITALIY BROWER Facili ty:[facility] Start: 08-09-2022 End: 08-09-2022 ambulatory Vitaliy Brower Other [employer] Other Start: 08-09-2022 Office outpatient vi sit 15 minutes Vitaliy Brower [facility] Start: 08-07-2022 End: 08-07-2022 ambulatory Jonathan Samano Other [employer] Other Start: 08-07-2022 Office outpatient vi sit 15 minutes Jonathan SWAIN [facility] [place] Start: 08-02-2022 End: 08-02-2022 ambulatory DO Vitaliy Brower Work Phone: [facility] Work Phone: Start: 08-02-2022 End: 08-02-2022 Patient encounter procedure DO Vitaliy Brower Work Phone: [facility] [place] [facility] Start: 08-01-2022 End: 08-01-2022 ambulatory Vitaliy Brower Other [employer] Other Start: 08-01-2022 Telephone encounter Vitaliy [facility]er [facility] Start: 07-31-2022 (Procedure) Short Jonathan Samano [facility] Start: 07-31-2022 End: 08-01-[address] VITALIY BROWER [facility] [employer] Other Start: 07-31-2022 Telephone encounter Jonathan Aguillon [facility] [place] Start: 07-29-2022 End: 07-30-[address] VITALIY BROWER Facility:[facility] Start: 07-28-2022 End: 07-28-2022 ambulatory Vitaliy Brower Other [employer] Other Start: 07-28-2022 Office outpatient vi sit 25 minutes Vitaliy Ball [facility] Start: 07-04-2022 End: 07-04-2022 ambulatory Jonathan Shrestha Other [employer] Other Start: 07-04-2022 Office outpatient vi sit 25 minutes Jonathan Shrestha [facility] Start: 07-03-2022 End: 07-03-2022 ambulatory Melinda Chasearney Other [employer] Other Start: 07-03-2022 Telephone encounter Melinda Chasearney [facility] Start: 06-29-2022 End: 06-29-2022 ambulatory DO Vitaliy Ball Work Phone: [facility] Work Phone: Start: 06-29-2022 End: 06-29-2022 Patient encounter procedure DO Vitaliy Ball Work Phone: [facility] [place] Work Phone: Start: 06-09-2022 End: 06-09-2022 ambulatory Vitaliy Inocente Other [employer] Other Start: 06-09-2022 Telephone encounter Vitaliy Brower [facility] Start: 06-05-2022 End: 06-05-2022 ambulatory Jonathan Samano Other [employer] Other Start: 06-05-2022 Office outpatient vi sit 15 minutes Jonathan Samano [facility] [place] Start: 05-29-2022 End: 05-29-2022 ambulatory Vitaliy Ball Other [employer] Other Start: 05-29-2022 Office outpatient vi sit 10 minutes Vitaliy Ball [facility] Start: 05-23-2022 End: 05-23-2022 ambulatory Vitaliy Ball Other [employer] Other Start: 05-23-2022 Office outpatient vi sit 15 minutes Vitlaiy Ball [facility] Start: 05-23-2022 Telephone encounter Vitaliy Brower [facility] Start: 05-22-2022 End: 05-22-2022 Emergency department patient visit DO Vitaliy Brower Work Phone: [facility]-Emergency Room Work Phone: Start: 05-01-2022 (Procedure) Binta Samano [facility] Start: 05-01-2022 End: 05-01-2022 ambulatory Jonathan Samano Other [employer] Other Start: 04-24-2022 (Procedure) Binta Samano [facility] Start: 04-24-2022 End: 04-24-2022 ambulatory Jonathan Vieiraer Other [email or web address] Other Start: 04-12-2022 Office outpatient vi sit 25 minutes Jonathan Vieiraer [facility] [place] Start: 04-12-2022 End: 04-12-2022 ambulatory DO Vitaliy Brower Work Phone: [facility] Work Phone: Start: 04-12-2022 End: 04-12-2022 Patient encounter procedure DO Vitaliy Brower Work Phone: [facility] Start: 03-20-2022 (Procedure) Binta Samano [facility] Start: 03-20-2022 End: 03-20-2022 ambulatory Jonathan Vieiraer Other [email or web address] Other Start: 03-08-2022 End: 03-08-2022 ambulatory Jonathan Vieiraer Other [email or web address] Other Start: 03-08-2022 Office outpatient vi sit 25 minutes Jonathan Vieiraer [facility] [place] Start: 02-22-2022 (Procedure) Binta Samano [facility] Start: 02-22-2022 End: 02-22-2022 ambulatory Jonathan Darieler Other [email or web address] Other Start: 02-15-2022 Office outpatient ne w 45 minutes Chio Nichole [facility] Start: 02-15-2022 End: 02-15-2022 ambulatory DO Vitaliy Brower Work Phone: [facility] Work Phone: Start: 02-15-2022 End: 02-15-2022 Patient encounter procedure DO Vitaliy Brower Work Phone: [facility] Start: 02-13-2022 End: 02-13-2022 ambulatory Jonathan Samano Other [email or web address] Other Start: 02-13-2022 Office outpatient vi sit 25 minutes Jonathan Samano [facility] [place] Start: 12-26-2021 End: 12-26-2021 Patient encounter procedure DO Vitaliy Brower Work Phone: [facility] [place] Start: 11-30-2021 End: 12-21-[address] VITALIY BROWER Facility: Start: 11-28-2021 Pre-procedure evaluation check Jonathan Samano Other [email or web address] Other Start: 09-28-2021 End: 09-28-2021 ambulatory Sarai Mecklenburg II Other [email or web address] Other Start: 09-28-2021 Postop follow up vis it related to original px Sarai Andrea II [facility] Start: 09-28-2021 End: 09-28-2021 Patient encounter procedure DO Vitaliy Brower Work Phone: [facility] Start: 09-12-2021 End: 09-12-2021 ambulatory Melinda Verduzco Other [email or web address] Other Start: 09-12-2021 Office outpatient vi sit 15 minutes Melinda Verduzco [facility] Start: 08-17-2021 (Post-Op) Post-Op Sarai Mecklenburg II [facility] Start: 08-17-2021 End: 08-17-2021 ambulatory Sarai Mecklenburg II Other [email or web address] Other Start: 07-20-2021 (Post-Op) Post-Op Sarai Mecklenburg II [facility] Start: 07-20-2021 End: 07-20-2021 ambulatory Sarai Mecklenburg II Other [email or web address] Other Start: 06-24-2021 (Prolonged) Prolonge d Services Sarai Mecklenburg II [facility] Start: 06-24-2021 End: 06-24-2021 ambulatory Sarai Mecklenburg II Other [email or web address] Other Start: 06-17-2021 End: 06-17-2021 ambulatory Sarai Andrea II Other [email or web address] Other Start: 06-17-2021 Office outpatient vi sit 25 minutes Sarai Mecklenburg II [facility] Start: 05-27-2021 Adult health examination Jonathan Samano Other [email or web address] Other Start: 03-25-2021 End: 03-25-2021 ambulatory Sarai Mecklenburg II Other [email or web address] Other Start: 03-25-2021 Telephone encounter Sarai Andrea II [facility] Start: 03-24-2021 End: 03-24-2021 ambulatory Jonathan Samano Other [email or web address] Other Start: 03-24-2021 Telephone encounter Jonathan Samano [facility] Start: 02-22-2021 End: 02-22-2021 ambulatory Jonathan Samano Other [email or web address] Other Start: 02-22-2021 Office outpatient vi sit 25 minutes Jonathan Samano [facility] [place] Start: 02-15-2021 (Procedure) Short Jonathan Samano [facility] Start: 02-15-2021 End: 02-15-2021 ambulatory Jonathan Samano Other [facility] [employer] Other Start: 01-20-2021 Telephone encounter Jonathan Darieldread [place] [facility] Start: 01-05-2021 Office outpatient vi sit 15 minutes Jonathan Darieldread [facility] [place] Start: 06-01-2009 ambulatory Genie rosas MD Work Phone: Radiology Start: 06-01-2009 End: 06-01-2009 Patient encounter procedure Genie Hdez MD Work Phone: [facility] Procedures Date Procedure Procedure Detail Performing Clinician Start: 01-07-2025 Plain X-ray of right hip Vitaliy Ball DO Work Phone: Start: 01-07-2025 X-ray of right knee, three views Vitaliy Ball DO Work Phone: Start: 12-22-2024 Ecg routine ecg w/le ast 12 lds w/i&r Antonio Steele MD Work Phone: Start: 12-15-2024 Follow-up visit Follow-up ANTONIO STEELE [...] Ball DO Work Phone: Start: 09-29-2024 Vitaliy Tan all DO Work Phone: Start: 08-22-2024 Ecg routine ecg w/le ast 12 lds w/i&r Antonio Steele MD Work Phone: Start: 08-12-2024 Radionuclide myocard ial perfusion stress study Vitaliy Ball DO Work Phone: Start: 08-11-2024 Duplex scan of lower limb veins Vitaliy Ball DO Work Phone: Start: 08-11-2024 Plain chest X-ray Dimitry capellan Ball DO Work Phone: Start: 08-06-2024 Plain X-ray of left hip Vitaliy Ball DO Work Phone: Start: 08-04-2024 Plain X-ray of left hand Vitaliy Ball DO Work Phone: Start: 08-01-2024 Plain X-ray of left hip Vitaliy Ball DO Work Phone: Start: 01-29-2024 Echo transthorc r-t 2d w/wo m-mode rec f-up/lmtd Sammi Loredo [employer]IST Work Phone: Start: 01-29-2024 Echo transthorc r-t 2d w/wo m-mode rec f-up/lmtd Sammi Loredo [employer]URANCE SPECIALIST Work Phone: Start: 01-29-2024 Basic metabolic pane l calcium total Sammi Loredo [employer]AL[employer] ASSURANCE SPECIALIST Work Phone: Start: 01-29-2024 Blood typing serolog ic rh (d) Sammi Loredo [employer]URANCE SPECIALIST Work Phone: Start: 01-29-2024 Ecg routine ecg w/le ast 12 lds trcg only w/o i&r Sammi Loredo [employer]URANCE SPECIALIST Work Phone: Start: 01-29-2024 Ct heart contrast ev al cardiac structure&morph Bird Kowalski MD Work Phone: Start: 12-31-2023 Screening colonoscopy D O [employer] Work Phone: Start: 12-31-2023 Colonoscopy Bird prajapati MD Work Phone: Start: 08-30-2023 CT angiography of ne ck vessels DO [employer] Work Phone: Start: 08-30-2023 Computed tomography of abdomen and pelvis with contrast DO [employer] Work Phone: Start: 08-30-2023 CT angiography of head DO [employer] Work Phone: Start: 08-30-2023 CT of head without contrast DO [employer] Work Phone: Start: 08-30-2023 Plain chest X-ray DO Be juany Catarizm Work Phone: Start: 08-30-2023 Bacterial ID (NA Mul tiplex Assay) DO [employer] Work Phone: Start: 08-30-2023 Blood culture for bacteria, including anaerobic screen DO [employer] Work Phone: Start: 08-30-2023 Respiratory Panel (PCR) DO [employer] Phone: Start: 08-30-2023 SARS-CoV-2, Influenz a & RSV (PCR) DO [employer] Work Phone: Start: 08-16-2023 Ecg routine ecg w/le ast 12 lds w/i&r Antonio Steele MD Work Phone: Start: 07-27-2023 History of coronary artery bypass grafting Status post aorto-coronary artery bypass graft Antonio Steele MD Work Phone: Start: 07-27-2023 Ecg routine ecg w/le ast 12 lds w/i&r Antonio Steele MD Work Phone: Start: 06-28-2023 End: 06-28-2023 Dxa bone density study 1/> sites axial stephanieel Heladio Pineda MD Work Phone: Start: 06-04-2023 Follow-up visit Follow-up SARAI VELASCO Start: 06-04-2023 Ecg routine ecg w/le ast 12 lds w/i&r Sarai Velasco MD Work Phone: Start: 05-21-2023 Duplex scan of lower limb veins DO Vitaliy Catarizm Work Phone: Start: 05-21-2023 X-ray of left knee DO B enjamin Catarizm Work Phone: Start: 05-16-2023 Plain X-ray of right hip DO Vitaliy Catarizm Work Phone: Start: 03-29-2023 Plain X-ray of right hip DO Vitaliy Catarizm Work Phone: Start: 02-13-2023 Plain X-ray of right hip DO Vitaliy Catarizm Work Phone: Start: 02-13-2023 Total replacement of right hip joint DO [employer] Work Phone: Start: 02-13-2023 Plain X-ray of right hip DO Vitaliy Catarizm Work Phone: Start: 10-26-2022 Plain X-ray of right hip DO Vitaliy Catarizm Work Phone: Start: 10-11-2022 CT of head without contrast DO Vitaliy Catarizm Work Phone: Start: 08-02-2022 Plain X-ray of right shoulder DO Vitaliy Catarizm Work Phone: Start: 08-02-2022 Plain X-ray of left hip DO [employer] Work Phone: Start: 07-29-[address] TABARES IN [employer] Comment on above: Performed By: #### P [facility] #### [facility] [address] [place] [address] Dr. Tracy Hubbard Start: 06-29-2022 MRI of left shoulder DO Vitaliy Catarizm Work Phone: Start: 05-22-2022 Plain X-ray of left elbow DO [employer] Work Phone: Start: 05-22-2022 Plain X-ray of left shoulder DO [employer] Work Phone: Start: 04-12-2022 Plain X-ray of right hip DO [employer] Work Phone: Start: 02-15-2022 Plain X-ray of right hand DO [employer] Work Phone: Start: 12-26-2021 XR pre/post mri xray DO [employer] Work Phone: Start: 12-26-2021 MRI of cervical spin e without contrast DO [employer] Work Phone: Start: 09-28-2021 Plain X-ray of left hip DO [employer] Work Phone: Start: 12-11-2014 Screening for malign [...] RSV Vaccine (1 - 1-dose 75+ series) [facility] Start: 12-30-2033 Screening for malignant neoplasm of colon [facility] Start: 05-14-2030 DTaP,Tdap and Td Vaccines (2 - Tdap) DTaP,Tdap and Td Vaccines (2 - Tdap) [facility] Start: 05-14-2030 DTaP/Tdap/Td Vaccines (2 - Tdap) DTaP/Tdap/Td Vaccines (2 - Tdap) [facility] Start: 05-14-2030 Urine microalbumin profile DTaP,Tdap,Td Vaccine (2 - Tdap) [facility] Start: 07-30-2027 Prostate Cancer Screening Discussion Prostate Cancer Screening Discussion [facility] Start: 07-30-2027 Prostate specific antigen measurement Prostate Cancer Screening Discussion [facility] Start: 07-01-2027 Diabetes Screening Diabetes Screening [facility] Start: 01-28-2027 Diabetes Screening Diabetes Screening [facility] Start: 06-11-2026 Diabetes Screening Diabetes Screening [facility] Start: 01-05-2026 Diabetes Screening Diabetes Screening [facility] Start: 08-25-2025 End: 08-25-2025 Patient encounter procedure 08/25/2025 12:00 PM EDT Office Visit Rheumatology [address] [place] [address] Heladio Pineda MD [address] [facility] [place] [address] Follow up for osteoarthritis/PMR/gout in 6-12months Rheumatology Comment on above: Follow up for osteoarthritis/PMR/gout in 6-12months Start: 08-18-2025 End: 08-18-2025 Patient encounter procedure 08/18/2025 3:20 PM EDT Office Visit [address] [address] Antonio Steele MD [address] [address], [facility] [address] [place] [address] [facility] Start: 06-29-2025 End: 06-29-2025 Patient encounter procedure 06/29/2025 9:00 AM EDT Office Visit Rheumatology [address] [place] [address] Heladio Pineda MD [address] [facility] [place] [address] Return for gout/osteoarthritis/pseu dogout/low vit fu OV 6-12months. Rheumatology Comment on above: Return for gout/osteoarthritis/pseudogou t/low vit fu OV 6-12months. Start: 06-27-2025 Screening for osteoporosis Bone Density Scan [facility] Start: 01-28-2025 Diabetes mellitus screening Diabetes Screening [facility] Start: 01-12-2025 End: 01-12-2025 Patient encounter procedure 01/12/2025 1:00 PM EDT Office Visit [facility] [address] [place] [phone] [place] [address] [place] [address] [facility] Start: 12-22-2024 End: 12-22-2024 Patient encounter procedure 12/22/2024 11:30 AM EDT Office Visit [address] [place] [phone] Antonio Steele MD [address] [facility] [place] [address] [facility] Start: 12-14-2024 [facility] Start: 12-13-2024 [facility] Start: 12-12-2024 [facility] Start: 12-09-2024 [employer]ast[employer]ari of Cardiac Rhythm, Single [employer]ast[employer] of Cardiac Rhythm, Single [facility] Start: 12-09-2024 Hospital admission [facility] Start: 12-08-2024 COVID-19 Vaccine ( season) COVID-19 Vaccine ( season) [facility] Start: 12-08-2024 Influenza vaccination [facility] Start: 12-03-2024 End: 11-19-2025 Basic metabolic 2000 panel - Serum or Plasma Basic Metabolic Panel Lab Routine Multi-vessel coronary artery stenosis Cardiomyopathy, ischemic Expected: 12/03/2024 (Approximate), Expires: 11/19/2025 [facility] Service Area Work Phone: Comment on above: Expected: 12/03/2024 (Approximate), Expi res: 11/19/2025 Start: 11-19-2024 End: 11-19-2026 Cardioversion External Cardioversion External Cardiac Services Routine Persistent atrial fibrillation (Multi) Expected: 11/19/2024 (Approximate), Expires: 11/19/2026 [facility] Work Phone: Comment on above: Expected: 11/19/2024 (Approximate), Expi res: 11/19/2026 Start: 11-19-2024 Medicare Annual Wellness Visit Medicare Annual Wellness Visit (AWV) [facility] Start: 10-23-2024 Plain X-ray of right hip XR hip RT min 2V(w/wo pelvis)* [facility] Start: 10-23-2024 XR Hip - right 2 Views [facility] Start: 10-06-2024 End: 07-07-2025 25-hydroxyvitamin D3 [Mass/volume] in Serum or Plasma VITAMIN D 25 HYDROXY Lab Routine Vitamin D deficiency Expected: 10/06/2024 (Approximate), Expires: 07/07/2025 [facility] Comment on above: Expected: 10/06/2024 (Approximate), Expi res: 07/07/2025 Start: 10-01-2024 [facility] Start: 10-01-2024 Physical therapy procedure [facility] Start: 09-30-2024 End: 09-30-2024 Urine culture [facility] Start: 09-30-2024 Hospital admission [facility] Start: 09-30-2024 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 [facility] Start: 09-30-2024 [facility] Start: 09-30-2024 Bacteria identified in Blood by Culture Blood Culture [facility] Start: 09-30-2024 End: 09-30-2024 Patient encounter procedure 09/30/2024 10:30 AM EDT [address] [place] [address] Antonio Steele MD [address] [facility], [address] [place] [address] [facility] Start: 09-29-2024 [facility] Start: 09-29-2024 [facility] Start: 09-29-2024 Hospital admission [facility] Start: 09-13-2024 End: 09-13-2024 Follow-up encounter 09/13/2024 10:00 AM EDT [facility] [address] [place] [address] Heladio Pineda MD [address] [place], [place] [id number] follow up Rheumatology Comment on above: follow up Start: 09-08-2024 End: 09-08-2024 ambulatory 09/08/2024 10:30 AM EDT Results Only [facility] [address] [place] [address] [place] [address] LAB [facility] Comment on above: LAB Start: 09-05-2024 End: 08-22-2026 Cardioversion External Cardioversion External Cardiac Services Routine Persistent atrial fibrillation (Multi) Expected: 09/05/2024 (Approximate), Expires: 08/22/2026 [facility] Service Area Work Phone: Comment on above: Expected: 09/05/2024 (Approximate), Expi res: 08/22/2026 Start: 08-13-2024 [facility] Start: 08-11-2024 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 [facility] Start: 08-11-2024 Hospital admission [facility] Start: 08-06-2024 End: 07-07-2025 CBC panel - Blood by Automated count COMPLETE BLOOD COUNT Lab Routine Anemia of chronic disease Expected: 08/06/2024 (Approximate), Expires: 07/07/2025 [facility] Comment on above: Expected: 08/06/2024 (Approximate), Expi res: 07/07/2025 Start: 08-06-2024 End: 07-07-2025 Comprehensive metabolic 2000 panel - Serum or Plasma COMPREHENSIVE METABOLIC PANEL Lab Routine Elevated LFTs Expected: 08/06/2024 (Approximate), Expires: 07/07/2025 [facility] Work Phone: Comment on above: Expected: 08/06/2024 (Approximate), Expi res: 07/07/2025 Start: 08-06-2024 End: 11-05-2024 Urate [Mass/volume] in Serum or Plasma URIC ACID Lab Routine Hyperuricemia Expected: 08/06/2024 (Approximate), Expires: 11/05/2024 [facility] Comment on above: Expected: 08/06/2024 (Approximate), Expi res: 11/05/2024 Start: 08-06-2024 Plain X-ray of left hip XR hip LT min 2V(w/wo pelvis)* [facility] Start: 08-06-2024 XR Hip - left 2 Views [facility] Start: 08-04-2024 Plain X-ray of left hand XR hand LT min 3V* [facility] Start: 08-04-2024 XR Hand - left GE 3 Views [facility] Start: 06-29-2024 End: 06-29-2025 C reactive protein [Mass/volume] in Serum or Plasma C-REACTIVE PROTEIN Lab Routine Elevated sed rate Elevated C-reactive protein (CRP) Expected: 06/29/2024 (Approximate), Expires: 06/29/2025 [facility] Comment on above: Expected: 06/29/2024 (Approximate), Expi res: 06/29/2025 Start: 06-29-2024 End: 06-29-2025 Comprehensive metabolic 2000 panel - Serum or Plasma COMPREHENSIVE METABOLIC PANEL Lab Routine Elevated LFTs Expected: 06/29/2024 (Approximate), Expires: 06/29/2025 [facility] Work Phone: Comment on above: Expected: 06/29/2024 (Approximate), Expi res: 06/29/2025 Start: 06-29-2024 End: 06-29-2025 Erythrocyte sedimentation rate SEDIMENTATION RATE, WESTERGREN Lab Routine Elevated sed rate Elevated C-reactive protein (CRP) Expected: 06/29/2024 (Approximate), Expires: 06/29/2025 [facility] Comment on above: Expected: 06/29/2024 (Approximate), Expi res: 06/29/2025 Start: 06-29-2024 End: 09-28-2024 Urate [Mass/volume] in Serum or Plasma URIC ACID Lab Routine Hyperuricemia Expected: 06/29/2024 (Approximate), Expires: 09/28/2024 [facility] Comment on above: Expected: 06/29/2024 (Approximate), Expi res: 09/28/2024 Start: 06-04-2024 Adult BMI Screening Adult BMI Screening [facility] Start: 06-04-2024 Tobacco Screening Tobacco Screening [facility] Start: 05-20-2024 End: 05-20-2024 Patient encounter procedure 05/20/2024 10:30 AM EST Appointment [address] Rios [address] [place] [phone] [facility] Start: 04-28-2024 End: 04-28-2024 Patient encounter procedure 04/28/2024 8:40 AM EST Office Visit [facility] [address] [place] [phone] Antonio Steele MD [address] [facility] [place] [address] [facility] Start: 04-18-2024 Tobacco Screening Tobacco Screening [facility] Start: 04-09-2024 Medicare Advantage Annual Wellness Visit Medicare Advantage Annual Wellness Visit [facility] Start: 03-17-2024 End: 03-17-2024 Patient encounter procedure 03/17/2024 9:00 AM EST Office Visit Rheumatology [address] [facility] [address] [place], [place] [id number] Heladio Pineda MD [address] [facility] [place] [address] for PMR/osteoarthritis/gout fu OV 6months Rheumatology Comment on above: for PMR/osteoarthritis/gout fu OV 6month s Start: 02-14-2024 End: 02-13-2025 Lipid 1996 panel - Serum or Plasma Lipid Panel Lab Routine Mixed hyperlipidemia Expected: 02/14/2024 (Approximate), Expires: 02/13/2025 [facility] Service Area Work Phone: Comment on above: Expected: 02/14/2024 (Approximate), Expi res: 02/13/2025 Start: 02-14-2024 End: 02-14-2024 Patient encounter procedure 02/14/2024 2:00 PM EST Office Visit [facility] [address] [facility] [address] [place] [phone] Antonio Steele MD [address] [facility] [place] [address] [facility] Start: 01-03-2024 Adult BMI Screening Adult BMI Screening [facility] Start: 12-31-2023 [facility] Start: 12-09-2023 COVID-19 Vaccine ( season) COVID-19 Vaccine () [facility] Start: 12-09-2023 COVID-19 Vaccine ( season) COVID-19 Vaccine () [facility] Start: 12-09-2023 Covid-19 Vaccine () Covid-19 Vaccine ( season) [facility] Start: 12-09-2023 COVID-19 Vaccine () COVID-19 Vaccine () [facility] Start: 12-09-2023 Influenza vaccination [facility] Start: 12-03-[address] [facility] Work Phone: Start: 10-18-2023 End: 10-18-2023 Patient encounter procedure 10/18/2023 2:40 PM EDT Office Visit [facility] [address] [facility] [address] [place] [address] Antonio Steele MD [address] [facility] [address] [place] [address] [facility] Start: 10-08-2023 End: 07-08-2024 25-hydroxyvitamin D3 [Mass/volume] in Serum or Plasma VITAMIN D 25 HYDROXY Lab Routine Vitamin D deficiency Expected: 10/08/2023 (Approximate), Expires: 07/08/2024 [facility] Work Phone: Comment on above: Expected: 10/08/2023 (Approximate), Expi res: 07/08/2024 Start: 10-08-2023 End: 01-07-2024 Urate [Mass/volume] in Serum or Plasma URIC ACID Lab Routine Hyperuricemia Idiopathic chronic gout of multiple sites without tophus Expected: 10/08/2023 (Approximate), Expires: 01/07/2024 [facility] Work Phone: Comment on above: Expected: 10/08/2023 (Approximate), Expi res: 01/07/2024 Start: 10-03-2023 End: 10-03-2023 Patient encounter procedure 10/03/2023 9:30 AM EDT Office Visit [facility] [address] [place] [address] Travis Lucas MD [address] [place] [address] [facility] Start: 09-01-2023 [facility] Start: 08-30-2023 [facility] Start: 08-30-2023 Respiratory pathogens DNA and RNA panel - Nasopharynx by ROSIE with non-probe detection [facility] Start: 08-30-2023 Hospital admission [facility] Start: 08-30-2023 [facility] Start: 08-30-2023 Bacteria identified in Blood by Culture Blood Culture [facility] Start: 08-30-2023 Blood culture for bacteria, including anaerobic screen Blood Culture [facility] Start: 08-16-2023 End: 08-16-2023 Professional / ancillary services management 08/16/2023 10:00 AM EDT Ancillary Procedure [facility] [address] [place] [phone] [facility] Start: 08-10-2023 End: 07-26-2024 ECG 12 Lead ECG 12 Lead ECG Routine 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 (Multi) Expected: 08/10/2023 (Approximate), Expires: 07/26/2024 [facility] Work Phone: Comment on above: Expected: 08/10/2023 (Approximate), Expi res: 07/26/2024 Start: 08-08-2023 End: 07-08-2024 C reactive protein [Mass/volume] in Serum or Plasma C-REACTIVE PROTEIN (CRP) Lab Routine Elevated sed rate Elevated C-reactive protein (CRP) Expected: 08/08/2023 (Approximate), Expires: 07/08/2024 [facility] Work Phone: Comment on above: Expected: 08/08/2023 (Approximate), Expi res: 07/08/2024 Start: 08-08-2023 End: 07-08-2024 Erythrocyte sedimentation rate SED RATE WESTERGREN Lab Routine Elevated sed rate Elevated C-reactive protein (CRP) Expected: 08/08/2023 (Approximate), Expires: 07/08/2024 [facility] Work Phone: Comment on above: Expected: 08/08/2023 (Approximate), Expi res: 07/08/2024 Start: 08-02-2023 [facility] Start: 07-27-2023 End: 07-26-2025 Cardioversion External Cardioversion External Cardiac Services Routine 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 (Multi) 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 of anticoagulant therapy Expected: 07/27/2023 (Approximate), Expires: 07/26/2025 [facility] Service Area Work Phone: Comment on above: Expected: 07/27/2023 (Approximate), Expi res: 07/26/2025 Start: 06-14-2023 End: 06-14-2023 Patient encounter procedure 06/14/2023 1:00 PM EST Appointment [facility] CVU-IVU [address] [place] [address] Chhaya Whatley MD [address] [place], [place] [id number] [facility] Start: 06-04-2023 End: 06-04-2023 Patient encounter procedure 06/04/2023 2:15 PM EST Office Visit [facility] [address] [place] [id number] Sarai Velasco MD [address] [place] [address] [facility] Start: 06-04-2023 End: 06-04-2024 Basic metabolic 2000 panel - Serum or Plasma Basic Metabolic Panel Lab Routine Coronary artery disease involving lone pine coronary artery of lone pine heart without angina pectoris Persistent atrial fibrillation ([facility]) Expected: 06/04/2023 (Approximate), Expires: 06/04/2024 [facility] Comment on above: Expected: 06/04/2023 (Approximate), Expi res: 06/04/2024 Start: 06-04-2023 End: 06-04-2024 Cardioversion external Cardioversion external Cardiac Services Routine Persistent atrial fibrillation ([facility]-H[facility]) Expected: 06/04/2023, Expires: 06/04/2024 [facility] Work Phone: Comment on above: Expected: 06/04/2023, Expires: Start: 06-04-2023 End: 06-04-2024 CBC W Auto Differential panel - Blood CBC auto differential Lab Routine Coronary artery disease involving lone pine coronary artery of lone pine heart without angina pectoris Persistent atrial fibrillation (CMS-HCC) Expected: 06/04/2023 (Approximate), Expires: 06/04/2024 [facility] Comment on above: Expected: 06/04/2023 (Approximate), Expi res: 06/04/2024 Start: 05-21-2023 Duplex scan of lower limb veins US venous duplex [facility] Start: 04-12-2023 End: 01-11-2024 25-hydroxyvitamin D3 [Mass/volume] in Serum or Plasma VITAMIN D 25 HYDROXY Lab Routine Vitamin D deficiency Expected: 04/12/2023 (Approximate), Expires: 01/11/2024 [facility] Work Phone: Comment on above: Expected: 04/12/2023 (Approximate), Expi res: 01/11/2024 Start: 04-12-2023 End: 01-11-2024 Cobalamin (Vitamin B12) [Mass/volume] in Serum or Plasma VITAMIN B12 BLOOD Lab Routine Vitamin B12 deficiency Expected: 04/12/2023 (Approximate), Expires: 01/11/2024 [facility] Work Phone: Comment on above: Expected: 04/12/2023 (Approximate), Expi res: 01/11/2024 Start: 04-09-2023 Behavioral Health Screening Behavioral Health Screening [facility] Start: 04-09-2023 Depression Assessment Depression Assessment [facility] Start: 04-06-2023 End: 03-07-2024 C reactive protein [Mass/volume] in Serum or Plasma C-REACTIVE PROTEIN (CRP) Lab Routine PMR (polymyalgia rheumatica) (HCC) Elevated sed rate Elevated C-reactive protein (CRP) Expected: 04/06/2023 (Approximate), Expires: 03/07/2024 [facility] Work Phone: Comment on above: Expected: 04/06/2023 (Approximate), Expi res: 03/07/2024 Start: 04-06-2023 End: 03-07-2024 Erythrocyte sedimentation rate SED RATE WESTERGREN Lab Routine PMR (polymyalgia rheumatica) (HCC) Elevated sed rate Elevated C-reactive protein (CRP) Expected: 04/06/2023 (Approximate), Expires: 03/07/2024 [facility] Work Phone: Comment on above: Expected: 04/06/2023 (Approximate), Expi res: 03/07/2024 Start: 02-13-2023 End: 02-13-2023 [facility] Start: 02-13-2023 Physical therapy procedure [facility] Start: 02-10-2023 End: 01-11-2024 C reactive protein [Mass/volume] in Serum or Plasma C-REACTIVE PROTEIN (CRP) Lab Routine Elevated sed rate Elevated C-reactive protein (CRP) Expected: 02/10/2023 (Approximate), Expires: 01/11/2024 [facility] Work Phone: Comment on above: Expected: 02/10/2023 (Approximate), Expi res: 01/11/2024 Start: 02-10-2023 End: 01-11-2024 Erythrocyte sedimentation rate SED RATE WESTERGREN Lab Routine Elevated sed rate Elevated C-reactive protein (CRP) Expected: 02/10/2023 (Approximate), Expires: 01/11/2024 [facility] Work Phone: Comment on above: Expected: 02/10/2023 (Approximate), Expi res: 01/11/2024 Start: 01-29-2023 [facility] Start: 01-26-2023 [facility] Start: 01-05-2023 End: 01-06-2024 25-hydroxyvitamin D3 [Mass/volume] in Serum or Plasma [facility] Work Phone: Comment on above: Expected: 01/05/2023 (Approximate), Expi res: 01/06/2024 Start: 01-05-2023 End: 03-07-2023 Aldolase [Enzymatic activity/volume] in Serum or Plasma [facility] Work Phone: Comment on above: Expected: 01/05/2023 (Approximate), Expi res: 03/07/2023 Start: 01-05-2023 End: 01-06-2024 CHENCHO BY IFA WITH REFLEX [facility] Work Phone: Comment on above: Expected: 01/05/2023 (Approximate), Expi res: 01/06/2024 Start: 01-05-2023 End: 01-06-2024 BLOOD TB SCREEN [facility] Work Phone: Comment on above: Expected: 01/05/2023 (Approximate), Expi res: 01/06/2024 Start: 01-05-2023 End: 01-06-2024 Chronic hepatitis differentiation between hepatitis B and C virus panel - Serum or Plasma [facility] Work Phone: Comment on above: Expected: 01/05/2023 (Approximate), Expi res: 01/06/2024 Start: 01-05-2023 End: 01-06-2024 Cyclic citrullinated peptide IgG Ab [Units/volume] in Serum or Plasma [facility] Work Phone: Comment on above: Expected: 01/05/2023 (Approximate), Expi res: 01/06/2024 Start: 12-08-2022 Covid-19 Vaccine ( season) Covid-19 Vaccine ( season) [facility] Start: 12-08-2022 Influenza vaccination [facility] Start: 10-02-2022 Hemolytic complement CH50 level [facility] Start: 10-02-2022 [facility] Start: 08-02-2022 Plain X-ray of right shoulder XR shoulder RT min 2V* [facility] Start: 08-02-2022 Plain X-ray of left hip XR hip LT min 2V(w/wo pelvis)* [facility] Start: 04-09-2022 Depression Assessment Depression Assessment [facility] Start: 06-06-2021 Covid-19 Vaccine (4 - Pfizer series) Covid-19 Vaccine (4 - Pfizer series) [facility] Start: 12-08-2020 Influenza vaccination INFLUENZA (Season Ended) [facility] Start: 2019 Hepatitis B Vaccines (1 of 3 - Risk 3-dose series) Hepatitis B Vaccines (1 of 3 - Risk 3-dose series) [facility] Start: 2019 RSV High Risk: (Elderly (60+) or Population) (1 - Risk 60-74 years 1-dose series) RSV High Risk: (Elderly (60+) or Population) (1 - Risk 60-74 years 1-dose series) [facility] Start: 2019 RSV patients and/or patients aged 60+ years (1 - 1-dose 60+ series) RSV patients and/or patients aged 60+ years (1 - 1-dose 60+ series) [facility] Start: 2019 RSV Vaccine (1 - 1-dose 60+ series) RSV Vaccine (1 - 1-dose 60+ series) [facility] Start: 10-29-2016 DIABETES SCREEN DIABETES SCREEN [facility] Start: 12-16-2014 PROSTATE CANCER SCREENING DISCUSSION PROSTATE CANCER SCREENING DISCUSSION [facility] Start: 12-16-2009 Administration of varicella zoster vaccine Zoster (Shingles) Vaccine (1 of 2) [facility] Start: 12-16-2009 Pneumococcal Vaccine: 50+ (1 of 1 - PCV) Pneumococcal Vaccine: 50+ (1 of 1 - PCV) [facility] Start: 12-16-2009 Prostate specific antigen measurement PSA Prostate Cancer Screening [facility] Start: 12-16-2009 Screening for malignant neoplasm of colon [facility] Start: 12-16-2009 SHINGRIX VACCINE (1 of 2) SHINGRIX VACCINE (1 of 2) [facility] Start: 12-16-2009 Zoster Vaccines (1 of 2) Zoster Vaccines (1 of 2) [facility] Start: 12-16-2004 Cologuard (FIT-DNA) Cologuard (FIT-DNA) [facility] Start: 12-16-2004 Colonoscopy Colonoscopy [facility] Start: 12-16-2004 Colorectal Cancer Screening Colorectal Cancer Screening [facility] Start: 12-16-[address] COLONOGRAPHY [facility] Start: 12-16-2004 Fecal Occult Blood Fecal Occult Blood [facility] Start: 12-16-2004 Screening for malignant neoplasm of colon [facility] Start: 12-16-2004 SIGMOIDOSCOPY SIGMOIDOSCOPY [facility] Start: 12-16-1994 Lipid 1996 panel - Serum or Plasma Lipid Screening [facility] Start: 12-16-1994 Lipid panel Lipid Screening [facility] Start: 12-16-1994 LIPID SCREEN LIPID SCREEN [facility] Start: 12-16-1978 Hepatitis A Vaccines (1 of 2 - Risk 2-dose series) Hepatitis A Vaccines (1 of 2 - Risk 2-dose series) [facility] Start: 12-16-1978 Pneumococcal vaccination Pneumococcal Vaccine (1 of 2 - PCV) [facility] Start: 12-16-1978 Urine microalbumin profile [facility] Start: 12-16-1977 Adult BMI Follow Up Plan Adult BMI Follow Up Plan [facility] Start: 12-16-1977 Annual PCP Team Chronic Disease Visit Annual PCP Team Chronic Disease Visit [facility] Start: 12-16-1977 Anxiety Screening Anxiety Screening [facility] Start: 12-16-1977 Depression Screening Depression Screening [facility] Start: 12-16-1977 Diabetes mellitus screening Diabetes Screening [facility] Start: 12-16-1977 Hepatitis B surface antibody level LDL Cholesterol [facility] Start: 12-16-1977 Hepatitis C screening Hepatitis C Screening [facility] Start: 12-16-1977 HIV SCREENING HIV SCREENING [facility] Start: 12-16-1977 HIV screening HIV Screening [facility] Start: 1971 Adult depression screening assessment DEPRESSION SCREENING [facility] Start: 1971 COVID-19 VACCINE (1) COVID-19 VACCINE (1) [facility] Start: 12-16-1965 Pneumococcal Vaccine: 65+ Years (1 of 2 - PCV) Pneumococcal Vaccine: 65+ Years (1 of 2 - PCV) [facility] Start: 12-16-1965 Pneumococcal Vaccine: Pediatrics (0 to 5 Years) and At-Risk Patients (6 to 64 Years) (1 of 2 - PCV) Pneumococcal Vaccine: Pediatrics (0 to 5 Years) and At-Risk Patients (6 to 64 Years) (1 of 2 - PCV) [facility] Start: 12-16-1960 MMR Vaccines (1 of 1 - Standard series) MMR Vaccines (1 of 1 - Standard series) [facility] Start: 1959 Annual wellness visit Medicare Initial Physical (IPPE) [facility] Start: 1959 HIV screening HIV Screening [facility] Start: 1959 Lipid panel Lipid Panel [facility] Start: 1959 Medicare Annual Wellness Visit Medicare Annual Wellness Visit (AWV) [facility] Start: 1959 Screening for malignant neoplasm of colon [facility] Start: 1959 Thyroid stimulating hormone measurement TSH Level [facility] End: 01-29-2024 Basic metabolic 2000 panel - Serum or Plasma Basic metabolic panel Lab STAT STAT (Lab) for 1 Occurrences starting 01/29/2024 until 01/29/2024 [facility] Work Phone: Comment on above: STAT (Lab) for 1 Occurrences starting until 01/29/2024 End: 02-01-2024 Basic metabolic 2000 panel - Serum or Plasma Basic Metabolic Panel Lab Routine Morning draw (Lab) for 3 Occurrences starting 01/30/2024 until 02/01/2024 [facility] Work Phone: Comment on above: Morning draw (Lab) for 3 Occurrences sta rting 01/30/2024 until 02/01/2024 C reactive protein [Mass/volume] in Serum or Plasma C-REACTIVE PROTEIN Lab Routine Elevated sed rate Elevated C-reactive protein (CRP) 06/30/2024 10:15 AM T [facility] End: 01-29-2024 Cardiac catheterization study Cardiac Catheterization Procedure Cardiac Cath Routine Atrial fibrillation, unspecified type (Multi) Once for 1 Occurrences starting 01/29/2024 until 01/29/2024 [facility] Service Area Work Phone: Comment on above: Once for 1 Occurrences starting 01/29/20 until 01/29/2024 Cardiac catheterizat ion study Cardiac Catheterization Procedure Cardiac Cath Routine Atrial fibrillation, unspecified type (Multi) 01/29/2024 1:18 PM EDT [facility] Work Phone: End: 01-29-2024 CBC W Auto Differential panel - Blood CBC and Auto Differential Lab STAT STAT (Lab) for 1 Occurrences starting 01/29/2024 until 01/29/2024 [facility] Work Phone: Comment on above: STAT (Lab) for 1 Occurrences starting until 01/29/2024 End: 02-01-2024 CBC W Auto Differential panel - Blood CBC and Auto Differential Lab Routine Morning draw (Lab) for 3 Occurrences starting 01/30/2024 until 02/01/2024 [facility] Work Phone: Comment on above: Morning draw (Lab) for 3 Occurrences sta rting 01/30/2024 until 02/01/2024 Complement C3 [Mass/volume] in Serum or Plasma [facility] Complement C4 [Mass/volume] in Serum or Plasma [facility] Comprehensive metabo lic 1999 panel - Serum or Plasma [facility] Comprehensive metabo lic 1999 panel - Serum or Plasma COMPREHENSIVE METABOLIC PANEL Lab Routine Elevated LFTs 06/30/2024 10:15 AM EDT [facility] CT Abdomen and Pelvi s W contrast IV [facility] End: 06-13-2024 CT watchman full contrast [facility] Service Area Work Phone: Comment on above: Once for 1 Occurrences starting 06/14/19 until 06/13/2024 End: 02-04-2024 DXA-AXIAL SKELETON DXA-AXIAL SKELETON Radiology Routine Steroid-induced osteoporosis 1 Occurrences starting 01/05/2023 until 02/04/2024 [facility] Work Phone: Comment on above: 1 Occurrences starting 01/05/2023 until 02/04/2024 End: 02-04-2024 DXA-FOREARM SKELETON DXA-FOREARM SKELETON Radiology Routine Steroid-induced osteoporosis 1 Occurrences starting 01/05/2023 until 02/04/2024 [facility] Work Phone: Comment on above: 1 Occurrences starting 01/05/2023 until 02/04/2024 End: 01-31-2024 ECG 12 lead daily ECG 12 lead daily ECG Routine Daily for 3 Days starting 01/29/2024 until 01/31/2024 [facility] Work Phone: Comment on above: Daily for 3 Days starting 01/29/2024 unt il 01/31/2024 Electrocardiogram, 12-lead PRN ACS symptoms Electrocardiogram, 12-lead PRN ACS symptoms ECG Routine As needed until discontinued starting 01/29/2024 [facility] Work Phone: Comment on above: As needed until discontinued starting Erythrocyte sedimentation rate SEDIMENTATION RATE, WESTERGREN Lab Routine Elevated sed rate Elevated C-reactive protein (CRP) 06/30/2024 10:15 AM EDT [facility] End: 01-29-2024 Incentive spirometry Instruct Incentive spirometry Instruct Respiratory Care Routine Once for 1 Occurrences starting 01/29/2024 until 01/29/2024 [facility] Service Area Work Phone: Comment on above: Once for 1 Occurrences starting 01/29/20 until 01/29/2024 End: 01-29-2024 Magnesium [Mass/volume] in Serum or Plasma Magnesium Lab STAT STAT (Lab) for 1 Occurrences starting 01/29/2024 until 01/29/2024 [facility] Work Phone: Comment on above: STAT (Lab) for 1 Occurrences starting until 01/29/2024 End: 02-01-2024 Magnesium [Mass/volume] in Serum or Plasma Magnesium Lab Routine Morning draw (Lab) for 3 Occurrences starting 01/30/2024 until 02/01/2024 [facility] Work Phone: Comment on above: Morning draw (Lab) for 3 Occurrences sta rting 01/30/2024 until 02/01/2024 MR Lumbar spine WO a nd W contrast IV [facility] Patient Education [facility] Work Phone: Patient referral [facility] Work Phone: End: 01-29-2024 Prothrombin time (PT) Protime-INR Lab STAT STAT (Lab) for 1 Occurrences starting 01/29/2024 until 01/29/2024 [facility] Work Phone: Comment on above: STAT (Lab) for 1 Occurrences starting until 01/29/2024 End: 02-01-2024 Prothrombin time (PT) Protime-INR Lab Routine Morning draw (Lab) for 3 Occurrences starting 01/30/2024 until 02/01/2024 [facility] Work Phone: Comment on above: Morning draw (Lab) for 3 Occurrences sta rting 01/30/2024 until 02/01/2024 Corona extractable nuclear Ab [Units/volume] in Serum [facility] SYNOVIAL FLUID CRYST ALS B/O SYNOVIAL FLUID CRYSTALS B/O Lab Routine Swelling of Knee Joint Ordered: 06/01/2009 [facility] Comment on above: Ordered: 06/01/2009 Urate [Mass/volume] in Serum or Plasma URIC ACID Lab Routine Hyperuricemia 06/30/2024 10:15 AM EDT [facility] Immunizations Immunization Date Immunization Notes Care Provider Fa cili 01-26-2024 influenza, seasonal, injectable Antonio Steele MD Work Phone: [facility] Work Phone: 01-26-2024 influenza virus vaccine, unspecified formulation Antonio Steele MD Work Phone: [facility] Work Phone: 04-05-2023 influenza, injectable, quadrivalent, preservative free Vitaliy Brower Other [facility] 04-05-2023 influenza virus vaccine, unspecified formulation Antonio Steele MD Work Phone: [facility] Work Phone: 02-06-2022 influenza, injectable, quadrivalent, contains preservative Sarai Mendez II Other [email or web address] Other 02-06-2022 influenza virus vaccine, split virus (incl. purified surface antigen) Jonathan Samano Other [facility] 02-06-2022 influenza, injectable, quadrivalent, preservative free DO Vitaliy Brower Work Phone: [facility] 02-06-2022 influenza virus vaccine, unspecified formulation Heladio Pineda MD Work Phone: [facility] 04-11-2021 COVID-19 mRNA, Comirnaty (Pfizer) DO [employer] Work Phone: [facility] 01-18-2021 influenza virus vaccine, split virus (incl. purified surface antigen) Jonathan Samano Other [email or web address] Other 01-18-2021 Seasonal trivalent influenza vaccine, adjuvanted, preservative free [facility] 01-18-2021 influenza virus vaccine, unspecified formulation Heladio Pineda MD Work Phone: [facility] 06-25-2020 COVID-19 mRNA, Comirnaty (Pfizer) DO [employer] Work Phone: [facility] 06-15-2020 COVID-19 mRNA, Comirnaty (Pfizer) DO [employer] Work Phone: [facility] 06-04-2020 COVID-19 mRNA, Comirnaty (Pfizer) DO [employer] Work Phone: [facility] 05-14-2020 diphtheria, tetanus toxoids and acellular pertussis vaccine, unspecified formulation Jonathan Samano Other [facility] 05-07-2020 Kenalog -40 mg Jonathan Samano Other [email or web address] Other 01-13-2020 influenza virus vaccine, split virus (incl. purified surface antigen) Jonathan Samano Other [facility] 01-13-2020 influenza virus vaccine, unspecified formulation DO [employer] Work Phone: [facility] 11-03-2019 Kenalog -40 mg Jonathan Samano Other [email or web address] Other 05-19-2019 Kenalog -40 mg Jonathan Samano Other [email or web address] Other 01-02-2019 influenza virus vaccine, split virus (incl. purified surface antigen) Jonathan Samano Other [facility] 01-02-2019 influenza virus vaccine, unspecified formulation DO [employer] Work Phone: [facility] 04-08-2018 Kenalog -40 mg Jonathan Samano Other [email or web address] Other 01-21-2018 influenza virus vaccine, split virus (incl. purified surface antigen) Jonathan Samano Other [email or web address] Other 01-21-2018 influenza virus vaccine, unspecified formulation DO [employer] Work Phone: [facility] 01-21-2018 Influenza, injectable, Madin Brimson Canine Kidney, quadrivalent with preservative [facility] 04-16-2017 Kenalog -40 mg Jonathan Samano Other [id number] Other 05-23-2016 Kenalog -40 mg Jonathan Vieiraer Other [email or web address] Other Payers Date Payer Category Payer Unknown [id number] 2024 Self-pay [id number] 2022 Medicare (Managed Care) 1.2. [id number] 2022 Medicare O [employer] ember [id number] 2014 Medicare [id number]. 1.13.159.2. [id number] 2014 Medicare [id number] 1959 Unknown [id number] 2.16.840.1.302393.3.579.2. 593 1959 Unknown [id number] 2.16.840.1.042423.3.579.2. 593 1959 Unknown [id number] 2.16.840.1.173189.3.579.2. 593 1959 Unknown [id number] 2.16.840.1.659600.3.579.2. 593 1959 Unknown [id number] 2.16.840.1.204881.3.579.2. 128 1959 Unknown [id number] 2.16.840.1.136851.3.579.2. 1286 1959 Unknown [id number] 2.16.840.1.033627.3.579.2. 128 1959 Unknown [id number] 2.16.840.1.136149.3.579.2. 1286 1959 Unknown [id number] 2.16.840.1.557963.3.579.2. 1259 1959 Unknown [id number] 2.16.840.1.886384.3.579.2. 1245 1959 Unknown [id number] 2.16.840.1.292075.3.579.2. 124 1959 Unknown [id number] 2.16.840.1.113501.3.579.2. 1245 1959 Unknown [id number] 2.16.840.1.087857.3.579.2. 1246 1959 Unknown [id number] 2.16.840.1.912856.3.579.2. 1246 1959 Unknown [id number] 2.16.840.1.240815.3.579.2. 124 1959 Unknown [id number] 2.16.840.1.693416.3.579.2. 124 1959 Unknown [id number] 2.840.1.145443.3.579.2. 124 1959 Unknown [id number] 2.840.1.143079.3.579.2. 124 1959 Unknown [id number] 2.0.1.936353.3.579.2. 1243 1960 Medicare [id number] 2.0.1.876230.19 1959 Private Health Insurance [facility] [id number] Medicare Medicare [id number] Medicare [place] [facility] PFFS [id number] Unknown [place] BC/BS [id number] Unknown [id number] 2.840.1.827987.3.579.2. 531 Unknown [id number] 2.840.1.064980.3.579.2. 531 Unknown [id number] 2.840.1.279413.3.579.2. 531 Unknown [id number] 2.16840.1.197233.3.579.2. 531 Unknown [id number] 2.840.1.777667.3.579.2. 531 Unknown [id number] 2.840.1.051714.3.579.2. 531 Unknown [id number] 2.16.840.1.534398.3.579.2. 531 Unknown [id number] 2.16.840.1.157762.3.579.2. 531 Unknown [id number] 2.16.840.1.545911.3.579.2. 531 Unknown [id number] 2.16.840.1.990242.3.579.2. 531 Unknown [id number] 2.16.840.1.121120.3.579.2. 531 Unknown [id number] 2.16.840.1.472380.3.579.2. 531 Social History Date Type Detail Facility Tobacco smoking stat us ARIS Unknown if ever smoked [facility] Start: 1960 Sex Assigned At Not on file C [facility] Start: 01-05-2023 End: 12-19-2023 Sex Assigned At [facility] Start: 07-04-2021 End: 12-09-2024 Tobacco smoking status NHIS Never smoked tobacco (finding) [facility] Start: 1960 Sex Assigned At Male F [facility] Start: 01-05-2023 End: 12-22-2024 Alcohol intake Current drinker of alcohol (finding) [facility] Start: 01-05-2023 End: 12-19-2023 Alcohol intake [facility] Start: 07-09-2023 National Score (1-100), lower number is lower risk 91 [facility] Start: 01-02-2023 End: 07-27-2023 Tobacco use and exposure Smokeless tobacco non-user [facility] Start: 07-17-2023 End: 08-22-2024 Exposure to SARS-CoV-2 (event) Not sure [facility] Start: 02-18-2024 End: 09-11-2024 Sex Male (finding) [facility] Start: 09-29-2024 SDOH Follow up SDOH Follow up [facility] Work Phone: Medical Equipment Procedure Code Equipment Code Equipment Origin al Text Equipment Identifier Dates Arthroplasty, hip, total, anterior approach Acetabular shell ()[id number] FDA Start: 07-04-2021 Arthroplasty, hip, total, anterior approach Ceramic femoral head prosthesis ()[id number] FDA Start: 07-04-2021 Arthroplasty, hip, total, anterior approach Coated hip femur prosthesis, modular ()[id number] FDA Start: 07-04-2021 Arthroplasty, hip, total, anterior approach Non-constrained polyethylene acetabular liner ()[id number] FDA Start: 07-04-2021 Arthroplasty, hip, total, anterior approach Acetabular shell ()[id number] FDA Start: 02-13-2023 Arthroplasty, hip, total, anterior approach Ceramic femoral head prosthesis ()[id number] FDA Start: 02-13-2023 Arthroplasty, hip, total, anterior approach Coated hip femur prosthesis, modular ()[id number] FDA Start: 02-13-2023 Arthroplasty, hip, total, anterior approach Non-constrained polyethylene acetabular liner ()[id number] FDA Start: 02-13-2023 Device, Closure, 27mm Watchman Flx Pro Laac - [id number] Start: 01-29-2024 Goals Date Patient Goal Desired Activity /State Functional Status Date Assessment Result Facility 12-12-2024 Functional status Patient at Baseline [facility] Work Phone: 10-01-2024 Functional status Patient at Baseline [facility] Work Phone: 09-29-2024 Functional status Patient at Baseline [facility] Work Phone: 08-13-2024 Functional status Patient at Baseline [facility] Work Phone: 09-01-2023 Functional status Patient at Baseline [facility] Work Phone: 08-30-2023 Functional status Disability Sta tus Patient at Baseline [facility] Work Phone: 11-27-2013 Are you deaf, or do you have serious difficulty hearing No 11/27/2013 9:53 AM EDT Jessica Shearer (Groundman/Lineman)(Hist) No [facility] Work Phone: 11-27-2013 Are you blind, or do you have serious difficulty seeing, even when wearing glasses No 11/27/2013 9:53 AM EDT Jessica Shearer (Groundman/Lineman)(Hist) No [facility] 11-27-2013 Do you have serious difficulty walking or climbing stairs No 11/27/2013 9:53 AM EDT Jessica Shearer (Groundman/Lineman)(Hist) No [facility] 11-27-2013 Do you have difficul ty dressing or bathing No 11/27/2013 9:53 AM EDT Jessica Shearer (Groundman/Lineman)(Hist) No [facility] 11-27-2013 Because of a physica l, mental, or emotional condition, do you have difficulty doing errands alone such as visiting a physician's office or shopping No 11/27/2013 9:53 AM EDT Jessica Shearer (Groundman/Lineman)(Hist) No [facility] Mental Status Date Assessment Result Facility 12-12-2024 Cognitive function Cognitive Sta tus Patient at Baseline [facility] Work Phone: 10-01-2024 Cognitive function Cognitive Sta tus Patient at Baseline [facility] Work Phone: 09-29-2024 Cognitive function Cognitive Sta tus Patient at Baseline [facility] Work Phone: 08-13-2024 Cognitive function Cognitive Sta tus Patient at Baseline [facility] Work Phone: 09-01-2023 Cognitive function Cognitive Sta tus Patient at Baseline [facility] Work Phone: 11-27-2013 Because of a physica l, mental, or emotional condition, do you have serious difficulty concentrating, remembering, or making decisions No 11/27/2013 9:53 AM EDT Jessica Shearer (Groundman/Lineman)(Hist) No [facility] Clinical Notes 01-05-2021 to 12-22-2024 Antonio Steele MD - 12/22/2024 11:30 AM EDTPatient InstructionsAttachmentsKeila GarciaSUDHIR - 12/15/2024 3:00 PM EDT Note Date & Type Note Facility 12-22-2024 History of Present illness Narrative Chief Complaint Patient presents with Follow-up DCC results Subjective Esme Steven is a 64 y.o. male HPI Patient here for follow-up new management for persistent atrial fibrillation, coronary disease, hypertension, ischemic cardiomyopathy. Since last time I saw him he was admitted to the hospital for dofetilide load. He underwent cardioversion was successful. Did not tolerate the higher dose of dofetilide and was discharged on dofetilide 125 mg twice daily. Since then he has done well. He feels better. He denies chest pain, lightheadedness, dizziness or syncope. He had recent fall resulted in rib fracture and large bruises. Assessment 1. Persistent atrial fibrillation he was admitted to the hospital for dofetilide. He tolerated dofetilide 125 mg twice daily but not the higher dose. He underwent cardioversion and remained in normal sinus rhythm with improvement of his symptoms. 2. Coronary artery disease status post four-vessel [...] 35% did not tolerate higher dose of improved. Last ejection fraction was 45% 6. Sleep apnea on CPAP 7. Hypothyroidism on replacement therapy that the care of his family physician 8. Obesity with BMI of 32 9. Status post Watchman device. Currently on dual antiplatelet therapy had good tolerance to anticoagulation due to easy bruisability 10. Mildly dilated aortic root at 4.5 cm based on recent CT scan 11. High risk medication form of dofetilide. QTc interval is acceptable at 448 ms Plan 1. I advised the patient to continue present medical regimen 2. I advised the patient to stop his Eliquis and stay on aspirin considering he has Watchman device 3. Continue aggressive approach risk factor modification with exercise, losing weight e 4. Encouraged him to be compliant with his CPAP 5. I encouraged him to lose weight and exercise 6. I will see him back 6-month 7. I reviewed his recent testing with him. We discussed SGLT inhibitors and Entresto patient elected to remain on current management Review of Systems All other systems reviewed and are negative. Vitals: 12/22/24 1125 BP: 130/80 BP Location: Left arm Patient Position: Sitting Pulse: 62 Weight: 102 kg (224 lb) Height: 1.791 m (5' 10.5 ) EKG done in office today Objective Physical Exam Constitutional: Appearance: Normal appearance. [...] mg, Daily atorvastatin (LIPITOR) 80 mg, Daily dofetilide (Tikosyn) 125 mcg capsule 1 capsule, Every 12 hours scheduled (0630,1830) escitalopram (Lexapro) 20 mg tablet 1 tablet, Daily levothyroxine (Synthroid, Levoxyl) 150 mcg tablet 1 tablet, Daily before breakfast magnesium oxide (MAG-OX) 400 mg, Daily methylPREDNISolone (MEDROL) 8 mg, Daily metoprolol succinate XL (Toprol-XL) 50 mg 24 hr tablet 1 tablet, Daily spironolacton-hydrochlorothiaz (Aldactazide) 25-25 mg tablet 1 tablet, Daily before breakfast valACYclovir (Valtrex) 500 mg tablet 1 tablet, Daily valsartan (DIOVAN) 40 mg, oral, Daily Assessment/Plan 1. Status post aorto-coronary artery bypass graft 2. Multi-vessel coronary artery stenosis Follow Up In Cardiology 3. Presence of Watchman left atrial appendage closure device 4. Persistent atrial fibrillation (Multi) 5. Mixed hyperlipidemia 6. Dilated aortic root 7. Cardiomyopathy, ischemic 8. Never smoked cigarettes 9. Obesity (BMI 30-39.9) Scribe Attestation By signing my name below, ICelia Scribe attest that this documentation has been prepared under the direction and in the presence of Antonio Steele MD. Provider Attestation - Scribe documentation All medical record entries made by the Scribe were at my direction and personally dictated by me. I have reviewed the chart and agree that the record accurately reflects my personal performance of the history, physical exam, discussion and plan. documented in this encounter [facility] Work Phone: 12-22-2024 Instructions Celia Alves LPN - 12/22/2024 11:30 AM EDT Please bring all medicines, vitamins, and herbal supplements with you when you come to the office. Prescriptions will not be filled unless you are compliant with your follow up appointments or have a follow up appointment scheduled as per instruction of your physician. Refills should be requested at the time of your visit. BMI was above normal measurement. Current weight: 102 kg (224 lb) Weight change since last visit (-) denotes wt loss 0 lbs Weight loss needed to achieve BMI 25: 47.6 Lbs Weight loss needed to achieve BMI 30: 12.4 Lbs Provided instructions on dietary changes. The following attachments cannot be sent through Care Everywhere.Heart Healthy Diet (Qatari)documented in this encounter [facility] Work Phone: 12-15-2024 History of Present illness Narrative Patient here for EKG visit ordered by Dr. Steele due to A-Fib. Dr. Arce in suite [...] off for [address] Steele to read Vitals: 12/15/24 1453 BP: 108/80 BP Location: Left arm Patient Position: Sitting Pulse: 74 Weight: 102 kg (224 lb) Height: 1.778 m (5' 10 ) EKG done in office today documented in this encounter [facility] Work Phone: 12-11-2024 Progress note Note Date/Time December 11, 2024 9:39am [facility] [address] [place] [address] Cardiology Progress Note Signed Patient: Esme Steven MR#: [id number] : 1960 Acct:[id number] Age/Sex: 63 / M Adm Date: 5 Loc: Room: [address] [place] [address] Type: ADM IN Attending Dr: Antonio Steele [...] <Electronically signed by MD Antonio Steele> 12/11/24938 [facility] Work Phone: 1(260) 764-309009-04-2025 Procedure [place] [id number] Cardioversion Procedure Note Signed Patient: Esme Steven MR#: [id number] : 1960 Acct:[id number] Age/Sex: 63 / M Adm Date: 5 Loc: Room: [address] [place] [address] Type: ADM IN Attending Dr: Antonio Steele MD Copies to: DO Antonio Hannah [...] Antonio Steele MD 12/11/24938 Signed By: 12/11/24939 [facility]09-04-20[place] [address] Cardiology Progress Note Signed Patient: Esme Steven MR#: [id number] : 1960 Acct:[id number] Age/Sex: 63 / M Adm Date: 5 Loc: Room: [address] [place] [address] Type: ADM IN Attending Dr: Antonio Steele [...] By: Antonio Steele MD 12/11/24937 Signed By: 12/11/24 0939 [facility]09-03-2025 Progress note Author Antonio Steele [facility] Note Date/Time December 10, 2024 11:34am [facility] [address] [place] [address] Cardiology Progress Note Signed Patient: Esme Steven MR#: [id number] : 1960 Acct:[id number] Age/Sex: 63 / M Adm Date: 5 Loc: Room: [address] [place] [address] Type: ADM IN Attending Dr: Antonio Steele [...] tomorrow Documented By: Antonio Steele MD 12/10/24 113 Signed By: <Electronically signed by MD Antonio Steele> 12/10/[address] [facility] Work Phone: 1(501) 631-201809-03-2025 [place] [address] Cardiology Progress Note Signed Patient: Esme Steven MR#: [id number] : 1960 Acct:[id number] Age/Sex: 63 / M Adm Date: 5 Loc: Room: [address] [place] [address] Type: ADM IN Attending Dr: Antonio Steele [...] MD 12/10/24 1133 Signed By: 12/10/24 1134 [facility]09-02-2025 History and physical note Author Antonio Steele [facility] Note Date/Time December 09, 2024 12:08pm [facility] [address] [place] [address] Cardiology H&P Signed Patient: Esme Steven MR#: [id number] : 1960 Acct:[id number] Age/Sex: 63 / M Adm Date: 5 Loc: Room: [address] [place] [address] Type: ADM IN Attending Dr: Antonio Steele [...] of systems: Palpitation and shortness of breath [facility] Medical History (Updated 12/09/24 @ 12:08 by [...] fibrillation Documented By: Antonio Steele MD 12/09/24 115 Signed By: <Electronically signed by MD Antonio Steele> 12/09/[address] [facility] Work Phone: 1(344) 566-375009-02-2025 [place] [address] Cardiology H&P Signed Patient: Esme Steven MR#: [id number] : 1960 Acct:[id number] Age/Sex: 63 / M Adm Date: 5 Loc: Room: [address] [place] [address] Type: ADM IN Attending Dr: Antonio Steele MD Copies to: DO Antonio Hannah MD~ Date of Service: 12/09/2024 Cardiology HPI [...] of systems: Palpitation and shortness of breath [facility] Medical History (Updated 12/09/24 @ 12:08 by [...] MD 12/09/24 1158 Signed By: 12/09/24 1208 [facility]08-13-2025 History of Present illness Narrative * Antonio [...] systolic dysfunction I suggested trial of low-dose Veqmza76 mg daily. I advised him to monitor [...] Attestation By signing my name below, I, Jasmine B, BOX FEEDER , Scribe attest that this documentation has [...] exam, discussion and plan. [facility] Phone: 1(194) 938-793208-13-2025 Instructions* Patient Instructions* Jasmine Coello LPN - [...] Valsartan 40 mg daily Referral for ablation Tikosyn 250 mcg bid drug load for 2 days Day 3 cardioversion( in 3 weeks) [facility] Phone: 1(803) 834-291907-17-2025 Evaluation note* Diagnosis Onset Date Resolution Status Admit Date Greater trochanteric bursitis of right hip acute October 23, 2024 1:54pm History of total right hip arthroplasty acute October 23, 2024 1:54pm Persistent atrial fibrillation acute December 09, 8:11am Low back pain acute December 152024 10:51am Other chronic pain acute Sept akila 2024 10:51am Other spondylosis with radiculopathy, lumbar region acute Sep tember 2024 10:51am Acute bronchitis due to other specified organisms acute Septem akila 2024 9:33am Rib fracture acute December 262024 9:33am Laceration of leg excluding thigh, with complication noneactive Septemb er 2024 9:33am Cellulitis of leg without foot, left noneactive December 26, 2024 9:33am Low back pain acute December 092024 9:45am Other chronic pain acute Sept akila 2024 9:45am Other spondylosis with radiculopathy, lumbar region acute Sep tember 2024 9:45am Greater trochanteric bursitis of right hip acute January 12:22pm History of total right hip arthroplasty acute January 07 12:22pm [facility] Work Phone: 1(134) 197-560607-02-2025 Evaluation note* Diagnosis Onset Date Resolution Status Admit Date ASHD (arteriosclerotic heart disease) acute October 08, 2024 1:53pm Atrial fibrillation acute October 08, 2024 1:53pm Chronic HFrEF (heart failure with reduced ejection fraction) acute October 08, 2024 1:53pm GENESIS (generalized anxiety disorder) acute October 08, 2024 1:53pm Hypercholesterolemia acute October 08, 2024 1:53pm Hypothyroid acute October 08 1:53pm FER (obstructive sleep apnea) acute October 08, 2024 1:53pm Pseudogout acute October 08, 2024 1:53pm Greater trochanteric bursiti s of right hip acute October 23, 2024 1:54pm History of total right hip arthroplasty acute October 23, 2024 1:54pm Persistent atrial fibrillation acute December 09, 2024 8:11am Low back pain acute December 152024 10:51am Other chronic pain acute Decem 2024 10:51am Other spondylosis with radiculopathy, lumbar region acute Sep 2024 10:51am Acute bronchitis due to othe r specified organisms acute December 262024 9:33am Rib fracture acute December 262024 9:33am Laceration of leg excluding thigh, with complication noneactive Septemb er 2024 9:33am Cellulitis of leg without fo ot, left noneactive December 26, 2024 9:33am [facility] Work Phone: 1(479) 789-100007-02-2025 Evaluation note* Diagnosis Onset Date Resolution Status Admit Date ASHD (arteriosclerotic heart disease) acute October 08, 2024 1:53pm Atrial fibrillation acute October 08, 2024 1:53pm Chronic HFrEF (heart failure with reduced ejection fraction) acute October 08, 2024 1:53pm GENESIS (generalized anxiety disorder) acute October 08, 2024 1:53pm Hypercholesterolemia acute October 08, 2024 1:53pm Hypothyroid acute October 08 1:53pm FER (obstructive sleep apnea) acute October 08, 2024 1:53pm Pseudogout acute October 08, 2024 1:53pm Greater trochanteric bursiti s of right hip acute October 23, 2024 1:54pm History of total right hip arthroplasty acute October 23, 2024 1:54pm Persistent atrial fibrillation acute December 09, 2024 8:11am Low back pain acute December 152024 10:51am Other chronic pain acute Decem akila 2024 10:51am Other spondylosis with radiculopathy, lumbar region acute Sep tem2024 10:51am Acute bronchitis due to othe r specified organisms acute December 262024 9:33am Rib fracture acute December 262024 9:33am Laceration of leg excluding thigh, with complication noneactive Septemb er 2024 9:33am Cellulitis of leg without fo ot, left noneactive December 26, 2024 9:33am Low back pain acute December 092024 9:45am Other chronic pain acute Septem akila 2024 9:45am Other spondylosis with radiculopathy, lumbar region acute Sep tember 2024 9:45am [facility] Work Phone: 1(502) 546-616706-25-2025 Consult note Author Lala Arce [facility] Note Date/Time October 01, 2024 11:3 8am [facility] [address] [place] [address] Cardiology Consult Note Signed Patient: Esme Steven MR#: [id number] : 1960 Acct:[id number] Age/Sex: 63 / M Adm Date: 5 Loc: Room: [address] [place] [address] Type: ADM INOo Attending Dr: Leidy Nuno DO Copies to: DO Lala Hannah MD, [facility] Leidy Nuno DO~ Cardiology HPI History of Present Illness Consult Date: 10/01/24 Reason for Consult: Hypotension HPI: Mr. Steven is a 63 year old male who is being seen at request of the hospitalist for hypotension. The patient was discharged 48 hours from [facility] after having admission for chest pain leading to diagnostic heart catheterization which revealed patent for coronary bypass surgery grafts including RIVAS graft to the LAD, saphenous vein graft to diagonal, saphenous vein graft to obtuse marginal, saphenous vein graft to the RCA. His [place] coronary arteries were occluded. 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 Review of Systems Review of Systems Review of systems: 10 point review of system outside of what is covered above in HPI was unremarkable [facility] Medical History (Updated 10/01/24 @ 11:35 by [...] Lymph # (Auto) 1.9 2.2 (1.00-4.8) x10E3/uL [place] # (Auto) 0.7 1.1 H (0.0-0.8) x10E3/uL [...] ml @ 999 mls/hr IV .Q31M ONE Rx#:[id number] Oral 250 / 250 Other: # Unmeasured [...] Details: Placed in 2023 at [facility] Plan: Continue to be monitored, continue baby [...] Code(s): I25.10 - Atherosclerotic heart disease of [place] coronary artery without angina pectoris (7) Persistent atrial fibrillation: Assessment/Problem Details: Not very symptomatic but in the presence of severe LV systolic dysfunction buddhist of normal sinus rhythm is desirable Plan: [...] Ischemic cardiomyopathy Documented By: Lala Arce MD, [facility] 5 1127 Signed By: <Electronically signed by MD POLO Arce> 10/01/[address] [facility] Work Phone: 1(255) 462-124506-25-2025 History and physical [place] [id number] Hospitalist H&P Signed Patient: Esme Steven MR#: [id number] : 1960 Acct:[id number] Age/Sex: 63 / M Adm Date: 5 Loc: 3T Room: [address] [place] [address] Type: ADM INOo Attending Dr: Leidy Nuno [...] systems obtained, negative unless noted in the HPI [facility] Source: Old Records Reviewed Medical History Vitamin [...] mg PO QHS 90 days #90 tabs 03/25/25 [Rx Confirmed 09/30/24] pantoprazole 40 mg tablet,delayed [...] % (Auto) 11.5 % (.) 09/30/24 14:21 [place] % (Auto) 3.9 % (.) 09/30/24 14:21 Eos % (Auto) 0.2 % (.) 09/30/24 14:21 Baso % (Auto) 0.6 % (.) 09/30/24 14:21 Nucleat RBC Rel Count 0.1 /100 WBC (0-0.5) 09/30/24 14:21 Neut # (Auto) 14.2 x10E3/uL (1.8-7.7) H 09/30/24 14:21 Lymph # (Auto) 1.9 x10E3/uL (1.00-4.8) 09/30/24 14:21 [place] # (Auto) 0.7 x10E3/uL (0.0-0.8) 09/30/24 14:21 [...] 1604 Signed By: 09/30/24 1653 10/01/24 1317 [facility]06-25-2025 [place] [address] Cardiology Consult Note Signed Patient: Esme Steven MR#: [id number] : 1960 Acct:[id number] Age/Sex: 63 / M Adm Date: 5 Loc: Room: [address] [place] [address] Type: ADM INOo Attending Dr: Leidy Nuno DO Copies to: DO Lala Hannah MD, [facility] Leidy Nuno DO~ Cardiology HPI History of Present Illness Consult Date: 10/01/24 Reason for Consult: Hypotension HPI: Mr. Steven is a 63 year old male who is being seen at request of the hospitalist for hypotension. The patient was discharged 48 hours from [facility] after having admission for chest pain leading to diagnostic heart catheterization which revealed patent for coronary bypass farooq rgery grafts including RIVAS graft to the LAD, saphenous vein graft to diagonal, saphenous vein graft to obtuse marginal, saphenous vein graft to the RCA. His [place] coronary arteries were occluded. 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 Review of Systems Review of Systems Review of systems: 10 point review of system outside of what is covered above in HPI was unremarkable [facility] Medical History (Updated 10/01/24 @ 11:35 by [...] Lymph # (Auto) 1.9 2.2 (1.00-4.8) x10E3/uL [place] # (Auto) 0.7 1.1 H (0.0-0.8) x10E3/uL [...] ml @ 999 mls/hr IV .Q31M ONE Rx#:[id number] Oral 250 / 250 Other: # Unmeasured [...] Details: Placed in 2023 at [facility] Plan: Continue to be monitored, continue baby [...] Code(s): I25.10 - Atherosclerotic heart disease of [place] coronary artery without angina pectoris (7) Persistent atrial fibrillation: Assessment/Problem Details: Not very symptomatic but in the presence of severe LV systolic dysfunction buddhist of normal sinus rhythm is desirable Plan: [...] Ischemic cardiomyopathy Documented By: Lala Arce MD, [facility] 5 1127 Signed By: 10/01/24 1138 [facility]06-24-2025 Radiology Diagnostic study note [facility] Main [place] [address] [place] [address] CT Scan Report Signed Patient: Esme Steven MR#: [id number] : 1960 Acct:[id number] Age/Sex: 63 / M ADM Date: Loc: ER Room: Type: [facility] ER Attending Dr: Copies to: Radha [facility] [...] Paul M.D. 09/30/2024 4:34 PM Dictation Location: [place] [address] Transcribed By: [facility] 09/30/24 1634 Dictated By: Ap Paul MD 09/30/24 1630 Signed By: 09/30/24 1634 [facility] Work Phone: 1(739) 153-227106-23-2025 Evaluation note* Diagnosis Onset Date Resolution Status [...] atrial fibrillation acute December 09, 2024 8:11am [facility] Work Phone: 1(751) 770-372306-23-2025 Evaluation note* Diagnosis Onset Date Resolution Status [...] s of right hip acute December 15, 2 025 10:51am Other chronic pain acute Septem akila 2024 10:51am Other spondylosis with radiculopathy, lumbar region acute Sep tember 2024 10:51am [facility] Work Phone: 1(516) 732-715906-23-2025 Evaluation note* Diagnosis Onset Date Resolution Status [...] (generalized anxiety disorder) acute October 08, 2024 1:53pm Hypercholesterolemia acute October 08, 2024 1:53pm Hypothyroid acute October 08 1:53pm FER (obstructive sleep apnea) acute October 08, 2024 1:53pm Pseudogout acute October 08, 2024 1:53pm Greater trochanteric bursiti s of right hip acute October 23, 2024 1:54pm History of total right hip arthroplasty acute October 23, 2024 1:54pm Persistent atrial fibrillation acute December 09, 2024 8:11am Low back pain acute December 152024 10:51am Other chronic pain acute Septem akila 2024 10:51am Other spondylosis with radiculopathy, lumbar region acute Sep tember 2024 10:51am Rib fracture acute December 262024 9:33am Chest pain noneactive December 9:33am [facility] Work Phone: 1(652) 502-688506-20-2025 Telephone encounter Note* Telephone Encounter - Debra Luna RN - 09/26/2024 3:36 PM EDT Pt returning call Read message below Voiced understanding No further questions [facility]06-20-2025 Miscellaneous Notes* Telephone Encounter - Debra Luna [...] labs Follow up for osteoarthritis/PMR/gout in 6-12months Thankmelinau. documented in this encounterPromedica Bay Park Hospital06-20-2025 Instructions* Patient Instructions* Heladio Pineda MD - [...] touching your toes, sit-ups, using row machine shelter pain recommendations per primary care provider/pain clinic Nonfasting labs as scheduled Thank you! documented in this encounterPromedica Bay Park Hospital06-20-2025 Telephone encounter Note * Telephone Encounter - Melany Pearson MA - 09/26/2024 12:56 PM EDT LMTCB [facility]06-20-2025 NoteHNO ID: [id number] Author: HELADIO PINEDA MD Service: ? Author [...] visit. 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 Tried mobic this week mild response. Likes [...] consider trial of dmards/k (more content not included)...[facility]06-20-2025 History of Present illness Narrative* Heladio Pineda [...] visit. Either the patient or their legal employee's representative has been informed of the risks [...] in knees, hands, hips, back. Reports pain 12/17. Has minimal AM stiffness. 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 Tried mobic this week mild response. 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 Tried mobic few weeks ago with mild [...] in knees, hands, hips, back. Reports pain /10. Has minimal AM stiffness. Feels safe at [...] touching your toes, sit-ups, using row machine shelter pain recommendations per primary care provider/pain clinic [...] video & audio (virtual) or phone or poyw-cx-wgma patient care, completing clinical documentation, obtaining and/or [...] by letter/electronic shared medical records. cc Vitaliy Brower, DO documented in this encounterPromedica Bay Park Hospital06-20-2025 Telephone encounter Note * Telephone Encounter - [...] on a speedy recovery! Warm regards, :) [facility]06-19-2025 Telephone encounter Note* Telephone Encounter - Yannick [...] he will walk in and do them [facility]06-07-[facility] Telephone encounter Note* Telephone Encounter - Heladio Pineda MD - 09/13/2024 10:21 AM EDT Please call patient to schedule Nonfasting labs Follow up for osteoarthritis/PMR/gout in 6-12months Thankyou. [facility]06-07-[facility] Instructions* Patient Instructions* Heladio Pineda MD - [...] touching your toes, sit-ups, using row machine shelter pain recommendations per primary care provider/pain clinic Nonfasting labs as scheduled Thank you! documented in this encounterPromedica Bay Park Hospital06-07-2025 History of Present illness Narrative* Heladio Pineda [...] visit. Either the patient or their legal employee's representative has been informed of the risks [...] hands, hips, knees, allover, worse when sitting shelter. Tried mobic this week mild response. 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 Tried mobic this week mild response. Likes [...] touching your toes, sit-ups, using row machine shelter pain recommendations per primary care provider/pain clinic [...] via video& audio (virtual) or phone or wipx-ab-tkjn patient care, completing clinical documentation, obtaining and/or [...] cc Vitaliy Brower DO documented in this encounterPromedica Bay Park Hospital06-07-2025 NoteHNO ID: [id number] Author: HELADIO PINEDA MD Service: ? Author [...] visit. Either the patient or their legal employee's representative has been informed of the risks [...] hips, knees, all over, worse when sitting shelter. Tried mobic this week mild response. Likes [...] rheum care. No falls/f (more content not included)...[facility] 09-09-2024 [place] [address] Cardioversion Procedure Note Signed Patient: Esme Steven MR#: [id number] : 1960 Acct:[id number] Age/Sex: 63 / M Adm Date: 5 Loc: PO Room: Type: [facility] Attending Dr: Antonio Steele MD Copies to: DO Antonio Hannah [...] MD 09/09/24 1228 Signed By: 09/09/24 1230 [facility]05-27-2025 Telephone encounter Note* Telephone Encounter - Ileana George - 09/02/2024 10:41 AM EDT Patient scheduled on 09/13/2024 [facility] Miscellaneous Notes* Telephone Encounter - Ileana George - 09/02/2024 10:41 AM EDT Patient scheduled on 09/13/2024 * Telephone Encounter - Heladio Pineda MD - 08/31/2024 1:09 PM EDT Please call patent To schedule nonfasting labs Active in 07/2024. Ok to complete at [facility] [place]. Please schedule earlier follow up visit for PMR May offer Sat. Clinic (virtual/phone only) 09/13/24 and 10/11/24 are open. Thank you. documented in this encounterPromedica Bay Park Hospital05-25-2025 Telephone encounter Note * Telephone Encounter - Heladio Pineda MD - 08/31/2024 1:09 PM EDT Please call patent To schedule nonfasting labs Active in 07/2024. Ok to complete at [facility]. Please schedule earlier follow up visit for PMR May offer Sat. Clinic (virtual/phone only) 09/13/24 and 10/11/24 are open. Thank you. [facility]05-16-[facility] History of Present illness Narrative* Antonio Steele [...] of breath. His recentstress test showed inferolateral ID with mild area of ashai-infarction ischemia 3. Hypertension controlled he is on [...] name below, I, Zo Smalls LPN , Ashly attest that this documentation has been prepared [...] exam, discussion and plan. documented in this [facility] Work Phone: 1([phone]) 302-484005-16-2025 Instructions* Patient Instructions* Zo Castro LPN - [...] through Care Everywhere. * Heart Healthy Diet (Qatari) documented in this [facility] Work Phone: [phone]) [phone] Evaluation note* Diagnosis Onset Date Resolution Status [...] August 19, 2024 4:09pm Atrial fibrillation acute May 1 3th, 2025 4:09pm GENESIS (generalized anxiety disorder) a cute [...] Primary hypertension acute September 30, 2024 4:14pm [facility] Work Phone: 1(604) 531-697804-23-2025 Evaluation note* Diagnosis Onset Date Resolution Status Admit Date Purpura of skin due to vascu lar fragility deleted July 30, 2024 9:44am Abdominal pain noneactive July 9:44am Diverticulitis large intestine nonea ctive July 30, 2024 9:44am Primary osteoarthritis, right hand a cute August 04, 2024 9:03am Contusion of left hand deleted Ap 2024 9:03am Left hand pain deleted July [...] September 30 4:14pm Ischemic cardiomyopathy inactive J [facility] 2024 4:14pm Persistent atrial fibrillation inact mallory [...] sleep apnea) acute October 08, 2024 1:53pm [facility] Work Phone: 1(290) 585-876804-23-2025 Evaluation note* Diagnosis Onset Date Resolution Status [...] hip arthroplasty acute October 23, 2024 1:54pm [facility] Work Phone: [phone] Telephone encounter Note* Telephone Encounter - Heladio Pineda MD - 07/07/2024 3:10 PM EDT Please Call patient if MyChart note not read to review results/released to My Chart if tests completed at F: Mildly high wbc, glucose, and one liver [...] above. Please process accordingly. Heladio Pineda MD [facility]03-31-2025 Miscellaneous Notes* Telephone Encounter - Heladio Pineda MD - 07/07/2024 3:10 PM EDT Please Call patient if MyChart note not read to review results/released to My Chart if tests completed at F: Mildly high wbc, glucose, and one liver [...] accordingly. Heladio Pineda MD documented in this encounterPromedica Bay Park Hospital03-25-2025 Evaluation note* Diagnosis Onset Date Resolution Status Admit Date ASHD (arteriosclerotic heart disease) acute July 01, 2024 1:11pm GENESIS (generalized anxiety disorder) a cute July 01, 2024 1:11pm Gastroesophageal reflux dise ase with esophagitis without hemorrhage acute July 01, 2024 1:11pm Hypothyroid acute July 01, 2 025 1:11pm Macrocytosis without anemia acute July 01, 2024 1:11pm [facility] Work Phone: 1([phone]) 342-135703-25-2025 Evaluation note* Diagnosis Onset Date Resolution Status [...] intestine nonea ctive July 30, 2024 9:44am [facility] Work Phone: [phone]) 486-328803-25-2025 Evaluation note* Diagnosis Onset Date Resolution Status [...] t hand acute August 04, 2024 9:03am [facility] Work Phone: [phone] Evaluation note* Diagnosis Onset Date Resolution Status [...] hip joint acute Ap ril 2024 11:36am [facility] Work Phone: 1([phone]) 702-275303-25-2025 Evaluation note* Diagnosis Onset Date Resolution Status [...] Unstable angina acute August 11, 2024 12:48pm 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 Mild narrowing of the [...] sites M11.89 Pseudogout involving multiple joints Z79.52 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 M25.561, M25.562, [...] cough 09/05/23 normal esr 2, crp 0.8; 4/25/24 in hospital 07/05/23 low vitamin D 21.4;normal [...] touching your toes, sit-ups, using row machine termite treater pain recommendations per primary care provider/pain clinic [...] video & audio (virtual) or phone or qxet-zz-foqd patient care, completing clinical documentation, obtaining and/orreviewing [...] Days Frequency Continuous Intervention/Comfort measure Comments [facility] AD[facility]AL DEMO Question 06/25/2024 11:14 AM EDT - Filed by Patient Is this visit related to an accident, other than Workers' Compensation? No Is this visit related to Workers' Compensation? No Do you need an steel post installer? No documented in this encounterPromedica Bay Park Hospital03-24-2025 NoteHNO ID: [id number] Author: HELADIO PINEDA MD Service: ? Author [...] UEs worse since off steroids. Reports pain 7-10. Has extended AM stiffness. Feels safe at [...] but happy with rheum (more content not included)...[facility]03-23-2025 Instructions* Patient Instructions* Heladio Pineda MD [...] touching your toes, sit-ups, using row machine termite treater pain recommendations per primary care provider/pain clinic [...] Ab, Total Negative Negative documented in this encounterPromedica Bay Park Hospital01-24-2025 Evaluation note* Diagnosis Onset Date Resolution Status Admit Date Acute bronchitis due to othe r specified organisms acute April 2:00pm Chest wall contusion acute 2024 2:00pm [facility] Work Phone: [phone] 801-322812-25-2024 Miscellaneous Notes* Telephone Encounter - Bert Newman LPN - 04/02/2024 12:37 AM EST Con 06/04/23 Bmp, mag 06/12/23 [facility] Tele[facility] encounter Note* Telephone Encounter - Bert Newman LPN - 04/02/2024 12:37 AM EST Con 06/04/23 Bmp, mag 06/12/23 [facility] Evaluation note* Diagnosis Onset Date Resolution Status Admit Date Acute bronchitis due to othe r specified organisms acute March 3:02pm ASHD (arteriosclerotic heart disease) acute March 17 3:02pm Cough acute March 17, 2024 3:02pm Acute bronchitis due to othe r specified organisms acute April 2:00pm Chest wall contusion acute 2024 2:00pm [facility] Work Phone: [phone] History of Present illness Narrative* Antonio Steele [...] By signing my name below, I, Zo Serina PLASCENCIA , Scribe attest that this documentation has [...] exam, discussion and plan. [facility] this [facility]Av[facility] Work Phone: [phone]) 185-894911-07-2024 Instructions* Patient Instructions* Zo Castro LPN - [...] through Care Everywhere. * Heart Healthy Diet (Qatari) documented in [facility]Av[facility] Work Phone: [phone]) 746-610211-05-2024 Evaluation note* Diagnosis Onset Date Resolution Status Admit Date Primary osteoarthritis, righ t hand acute February 11 1:35pm Biceps tendonitis on right acute February 18, 2024 9:37am Rotator cuff syndrome of right shoulder acute February 17, 2 024 9:37am Traumatic complete tear of left rotator cuff acute February 18, 2024 9:37am [facility] Work Phone: [phone] Evaluation note* Diagnosis Onset Date Resolution Status Admit Date Primary osteoarthritis, righ t hand acute February 11 1:35pm Biceps tendonitis on right acute February 18, 2024 9:37am Rotator cuff syndrome of right shoulder acute February 17, 024 9:37am Traumatic complete tear of left rotator cuff acute February 18, 2024 9:37am Acute bronchitis due to othe r specified organisms acute March 3:02pm ASHD (arteriosclerotic heart disease) acute March 17 3:02pm Cough acute March 17, 2024 3:02pm Acute bronchitis due to othe r specified organisms acute April 2:00pm [facility] Work Phone: [phone] 296-886110-22-2024 Hospital course Narrative* Bruno Almaguer MD - [...] Center 02/14/2024 2:00 PM Antonio Steele MD [id number] [facility] 04/28/2024 8:40 AM Antonio Steele MD [id number] [facility] 05/20/2024 10:30 AM [id number] 1 [id number] [facility] Bruno Almaguer MD documented in this [facility] Work Phone: [phone] Note* Post-Procedure Note - Bruno Almaguer MD - 01/29/2024 12:08 PM EDT Physician Transition of Care Summary Invasive Cardiovascular Lab Procedure Date: 01/29/2024 Attending: * Bird Kowalski - Primary Resident/Fellow/Other Railroad Dining Car Steward/Stewardess: Surgeons and Role: * Bruno Almaguer MD - Fellow Indications: Pre-op Diagnosis * Atrial fibrillation, unspecified type (Multi) [I48.91] Post-procedure diagnosis: Post-op Diagnosis * Atrial fibrillation, unspecified type (Multi) [I48.91] Procedure(s): LAAO (Left Atrial Appendage Occlusion) 28922 - PA PERQ CLSR TCAT L ATR APNDGE W/ENDOCARDIAL IMPLNT PA PERQ CLSR TCAT L ATR APNDGE W/ENDOCARDIAL IMPLNT [47587] Description of the Procedure: S/p MARIO closure [...] Closure, 27mm Watchman Flx Pro Laac - [id number] - Implanted Inventory item: DEVICE, CLOSURE, 27MM WATCHMAN FLX PRO LAAC Model/Cat number: [id number] Salon/Spa Manager: [employer] Lot number: [id number] Device identifier: [id number] As of 01/29/2024 Status: Implanted Anticoagulation/Antiplatelet Plan: [...] RN 01/29/2024 9:31 AM [facility] PROTIME-INR Blood, Venous Collected By: Telma [...] by: Bruno Almaguer MD, 01/29/2024 1:45 PM [facility] Work Phone: [phone]) 513-931110-22-2024 Miscellaneous Notes* Post-Procedure Note - Bruno Almaguer MD - 01/29/2024 12:08 PM EDT Physician Transition of Care Summary Invasive Cardiovascular Lab Procedure Date: 01/29/2024 Attending: * Bird Kowalski - Primary Resident/Fellow/Other Railroad Dining Car Steward/Stewardess: Surgeons and Role: * Bruno Almaguer MD - Fellow Indications: Pre-op Diagnosis * Atrial fibrillation, unspecified type (Multi) [I48.91] Post-procedure diagnosis: Post-op Diagnosis * Atrial fibrillation, unspecified type (Multi) [I48.91] Procedure(s): LAAO (Left Atrial Appendage Occlusion) 37207 - PA PERQ CLSR TCAT L ATR APNDGE W/ENDOCARDIAL IMPLNT PA PERQ CLSR TCAT L ATR APNDGE W/ENDOCARDIAL IMPLNT [25821] Description of the Procedure: S/p MARIO closure [...] Closure, 27mm Watchman Flx Pro Laac - [id number] - Implanted Inventory item: DEVICE, CLOSURE, 27MM WATCHMAN FLX PRO LAAC Model/Cat number: [id number] Salon/Spa Manager: [employer] Lot number: [id number] Device identifier: [id number] As of 01/29/2024 Status: Implanted Anticoagulation/Antiplatelet Plan: [...] RN 01/29/2024 9:31 AM Release result to [facility] Immediate CBC WITH AUTO DIFFERENTIAL Blood, Venous [...] Plan ASA 3 Mild documented in this [facility] Work Phone: [phone] History of Present illness Narrative* Olivier Hopkins, PharmD - 01/29/2024 10:30 AM EDT Pharmacy Medication History Review Esme Steven is a 63 y.o. male admitted for Atrial fibrillation (Multi). Pharmacy reviewed the patient's ogtiq-ja-zoptxbxvd medications and allergies for accuracy. Medications ADDED: None Medications CHANGED: Medrol Medications REMOVED: None The list below reflects the updated APPEALS ANALYST list. Prior to Admission Medications Prescriptions Last [...] medrol Patient declines M2B at discharge. Sources: [facility] Pharmacy dispense history Patient interview Additional Comments: None Olivier Hopkins PharmD Transitions of Care Pharmacist 01/29/24 Secure Chat preferred If no response call [phone] or Estadeboda Rec documented in this encounterAv[facility] Work Phone: [phone]) 574-266010-22-2024 Note* Pre-Sedation Documentation - Bruno Almaguer MD - 01/29/2024 10:27 AM EDT Patient: Esme Steven NPO guidelines met: Yes Physical Exam Airway Mallampati: III Cardiovascular Dental Pulmonary Plan ASA 3 Mild [facility] Work Phone: [phone] 138-324310-22-2024 History and physical note* Bruno Almaguer MD [...] care of this patient. Bruno Almaguer MD [facility] Work Phone: [phone]) [phone] History and physical note* Bruno Almaguer MD [...] patient. Bruno Almaguer MD documented in this [facility] Work Phone: [phone] Hospital Discharge instructions* Discharge Instructions* Sammi Loredo APRN-RESEARCH QUALITY ASSURANCE SPECIALIST - 01/29/2024 9:41 AM EDT Watchman Discharge [...] you have any concerns, youmay contact the Propellant Charge Zone Assembler or if any of these symptoms become excessive, contact your tractor trailer truck driver tonny to the emergency room. No tub [...] you have any questions or concerns - [phone] documented in this [facility] Work Phone: [phone]) [phone] [facility]Med[facility] History of Present illness Narrative* Bird [...] atrial fibrillation. 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 He is frequently working with heavy [...] vascular complications, sedation related complications, risk of ID, CVA, device embolization, pericardial tamponade and . [...] care of this patient. Bird Kowalski MD Computer Forensics Technician, Interventional Cardiology Fellowship Program [facility] [employer] Office documented in this encounterUnD[facility] Work Phone: [phone]) [phone] Telephone encounter Note* Telephone Encounter - Gordon Korin - 2023 9:29 AM EDT Called patient LVM regards to completing labs as directed below [facility] Miscellaneous Notes* Telephone Encounter - Korin Leyva [...] - This Specialty 07/05/2023 PMR (polymyalgia rheumatica) ([facility]) Rheumatology Heladio Pineda MD 03/05/2023 PMR (polymyalgia rheumatica) ([facility]) Rheumatology Heladio Pineda MD 01/05/2023 PMR (polymyalgia rheumatica) ([facility]) Rheumatology Heladio Pineda MD Upcoming Rheumatology Appointments - Next 365 Days Visit Type Date Time Department [facility] 03/17/2024 9:00 AM [facility] CBC: None on file [...] and advise. Maryann Ramos documented in this encounterPromedica Bay Park Hospital09-07-2024 Telephone encounter Note * Telephone Encounter [...] above. Please process accordingly. Heladio Pineda MD [facility]09-06-2024 Telephone encounter Note* Telephone Encounter - Melany Pearson MA - 12/14/2023 9:35 AM EDT Images from the original note were not included. Most recent Rheumatology visit: 07/05/2023 (with Heladio Pineda) Last Bone Density on file: 06/28/2023 Rheumatology Care Team: None on file Recent Office Visits - This Specialty 07/05/2023 PMR (polymyalgia rheumatica) ([facility]) Rheumatology Heladio Pineda MD 03/05/2023 PMR (polymyalgia rheumatica) ([facility]) Rheumatology Heladio Pineda MD 01/05/2023 PMR (polymyalgia rheumatica) ([facility]) Rheumatology Heladio Pineda MD Upcoming Rheumatology Appointments - Next 365 Days Visit Type Date Time Department [facility] 03/17/2024 9:00 AM [facility] CBC: None on file [...] chronic gout of multiple sites without tophus [facility]09-05-2024 Telephone encounter Note* Telephone Encounter - Maryann Prince - 12/13/2023 4:06 PM EDT Patient phones requesting refills as follows: Requested Prescriptions Pending Prescriptions Disp Refills methylPREDNISolone (MEDROL) 4 mg 21 tablet 1 Sig: Day 1=6tabs with food, Day 2=5tabs, Day 3=4tabs, Day 4=3tabs, Day 5=2tabs, Day 6=1tab, No NSAIDs on med Please review and advise. Maryann Ramos [facility]07-11-2024 History of Present illness Narrative* Antonio Steele [...] exam, discussion and plan. documented in this encounterAv[facility] Work Phone: [phone]) 561-477807-11-2024 Instructions* Patient Instructions* Pearl Bae LPN - [...] Provided instructions on exercise documented in this encounterAvita [facility] Work Phone: 1([phone]) [phone] Telephone encounter Note* Telephone Encounter - Lana Hartman MA - 09/10/2023 9:26 AM EDT Pt aware. Patient asked regarding Medrol. He says he is to take until completed. I stated yes. He wants to know if he should continue his other medications. I let him know Dr. Pineda didn't stated anything about any changes to his medication. Lana Hartman MA [facility]06-03-2024 Miscellaneous Notes* Telephone Encounter - Lana Hartman [...] normal esr 9, crp<0.3; documented in this encounterPromedica Bay Park Hospital06-02-2024 Telephone encounter Note * Telephone Encounter [...] chronic Afib. 03/05/23 normal esr 9, crp<0.3; [facility]05-29-2024 Telephone encounter Note* Telephone Encounter - Melany Pearson MA - 09/05/2023 2:40 PM EDT Spoke to pt aware of med sent. [facility]05-29-2024 Miscellaneous Notes* Telephone Encounter - Melany Samuels [...] - This Specialty 07/05/2023 PMR (polymyalgia rheumatica) ([facility]) Rheumatology Heladio Pineda MD 03/05/2023 PMR (polymyalgia rheumatica) ([facility]) Rheumatology Heladio Pineda MD 01/05/2023 PMR (polymyalgia rheumatica) ([facility]) Rheumatology Heladio Pineda MD Upcoming Rheumatology Appointments - Next 365 Days Visit Type Date Time Department [facility] 03/17/2024 9:00 AM [facility] CBC: Latest Ref Rng [...] diagnoses: Vitamin D deficiency documented in this encounterPromedica Bay Park Hospital05-29-2024 Telephone encounter Note * Telephone Encounter [...] above. Please process accordingly. Heladio Pineda MD [facility]05-29-2024 Telephone encounter Note* Telephone Encounter - Melany Pearson MA - 09/05/2023 10:21 AM EDT Spoke to pt he states he has been having muscle pain lately and will like to take the medrol dose pack for his pain. [facility]05-29-2024 Telephone encounter Note* Telephone Encounter - Heladio Pineda MD - 09/05/2023 9:12 AM EDT Please call patient Inquire if patient still taking medrol Is he have any pain symptoms, PMR symptoms? Per last note patient was off medrol Thank you. [facility]05-29-2024 Telephone encounter Note* Telephone Encounter - Melany Pearson MA - 09/05/2023 7:58 AM EDT Images from the original note were not included. Most recent Rheumatology visit: 07/05/2023 (with Heladio Pineda) Rheumatology Care Team: None on file Recent Office Visits - This Specialty 07/05/2023 PMR (polymyalgia rheumatica) ([facility]) Rheumatology Heladio Pineda MD 03/05/2023 PMR (polymyalgia rheumatica) ([facility]) Rheumatology Heladio Pineda MD 01/05/2023 PMR (polymyalgia rheumatica) ([facility]) Rheumatology Heladio Pineda MD Upcoming Rheumatology Appointments - Next 365 Days Visit Type Date Time Department [facility] 03/17/2024 9:00 AM [facility] CBC: Latest Ref Rng [...] (CRP) [SQCRP] 08/08/23 07/08/24 07/09/23 Auth. provider: Hleadio Pineda MD Assoc. diagnoses: Elevated sed rate, Elevated C-reactive protein (CRP) VITAMIN D 25 HYDROXY [SQVITD] 10/08/23 07/08/24 07/09/23 Auth. provider: Heladio Pineda MD Assoc. diagnoses: Vitamin D deficiency [facility]05-24-2024 Progress note Author Sally Alex [facility] August 31, 2023 3:45pm Note Date/Time August 31, 2023 10:54 am [facility] EN[facility] [address] [place] [address] Hospitalist Progress Note Signed with Addenda Patient: Esme Steven MR#: [id number] : 1960 Acct:[id number] Age/Sex: 62 / M Adm Date: 4 Loc: Room: [address] [place] [address] Type: ADM IN Attending Dr: Sally Alex [...] 08/31/23 09:00 08/31/23 08:59 Aspirin 81 Mg Tablet. PO 08/30/24 08:59 81 mg DAILY EAGLE [...] Syringe IV-PUSH 08/30/24 05:59 Not Given QSHIFT [facility] A&P - Hospitalist Assessment/Plan (1) Acute diverticulitis: [...] signed by DO RADHA Zavala> 08/31/[address] [facility] Work Phone: 1(368) 839-375505-24-2024 History and physical note Author Elliott Talley [facility] August 30, 2023 11:34pm Note Date/Time August 30, 2023 11:04 pm [facility] [address] [place] [address] Hospitalist H&P Signed Patient: Esme Steven MR#: [id number] : 1960 Acct:[id number] Age/Sex: 62 / M Adm Date: 4 Loc: Room: [address] [place] [address] Type: ADM IN Attending Dr: Elliott Talley [...] that which is noted above in HPI [facility] Medical History (Updated 08/30/23 @ 23:33 [...] mg tablet,delayed release 81 mg PO DAILY ID prevention 01/29/17 [History Confirmed 08/30/23] atorvastatin 80 [...] % (Auto) 4.4 % (.) 08/30/23 18:20 [place] % (Auto) 2.3 % (.) 08/30/23 18:20 Eos % (Auto) 0.1 % (.) 08/30/23 18:20 Baso % (Auto) 0.8 % (.) 08/30/23 18:20 Nucleat RBC Rel Count 0.0 /100 WBC (0-0.5) 08/30/23 18:20 Neut # (Auto) 13.4 x10E3/uL (1.8-7.7) H 08/30/23 18:20 Lymph # (Auto) 0.6 x10E3/uL (1.00-4.8) L 08/30/23 18:20 [place] # (Auto) 0.3 x10E3/uL (0.0-0.8) 08/30/23 18:20 [...] pH 5.5 (5.0-9.0) 08/30/23 18:45 Ur Specific [place] 1.016 (1.001-1.030) 08/30/23 18:45 Urine Protein Negative [...] pink Documented By: Elliott Talley MD [id number] Signed By: <Electronically signed by Elliott Talley MD> 08/30/[address] [facility] Work Phone: 1(621) 905-695305-09-2024 History of Present illness Narrative* Ky Navarro [...] m (5' 10.5 ) documented in this [facility] Work Phone: 1(295) 779-571504-25-2024 [facility] History of Present illness Narrative* Antonio Steele [...] been seen in the past by the [facility] group but elected to change because [...] Status post aorto-coronary artery bypass graft 7. 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 of anticoagulant therapy Cardioversion External 8. BMI 35.0-35.9,adult Scribe Attestation By signing my name below, Zo Boothe LPN , Scribe attest that this [...] exam, discussion and plan. [facility] Work Phone: 1(433) 357-650104-19-2024 Instructions* Patient Instructions* Zo Castro LPN - [...] Provided instructions on exercise. documented in this [facility]Av[facility] Work Phone: 1(511) 390-276704-01-2024 Miscellaneous Notes* Telephone Encounter - Polly Magana LPN - 07/09/2023 11:57 AM EDT Called and spoke to patient. He is aware of message below from Dr. Pineda. Patient verbalized understanding. * Telephone Encounter - Heladio Pineda MD - 07/09/2023 7:44 AM EDT Please Call patient if MyChart note not read to review results/released to My Chart if tests completed at [facility]: Low vitamin D maybe associated with fatigue/joint/muscle [...] accordingly. Heladio Pineda MD documented in this encounterProm[facility] Miscellaneous Notes* Telephone Encounter - Korin Leyva - 07/02/2023 9:16 AM EDT Called and spoke with patient. Patient scheduled to see Dr. Pineda this patient [facility] t [facility] * Telephone Encounter - Heladio Pineda [...] normal esr 9, crp<0.3; documented in this encounterProm[facility]-2024 Miscellaneous Notes* Telephone Encounter - Kamille Rosario RN - 06/14/2023 9:28 AM EST Pt calling in; states he is to have procedure with JBP today but is experiencing fevers, vomiting, diarrhea. EP upkeep mechanic notified to call pt to cancel and reschedule. * Telephone Encounter - Georgia Harvey LPN - 06/14/2023 9:28 AM EST Called and spoke with pt, pt confirmed N/V/D and fever. Advised pt to call when symptoms resolve and will reschedule Pt stated he did miss Eliquis dose last night and no meds currently d/t vomiting. Will notify JBP documented [facility] Telephone encounter Note* Telephone Encounter - Kamille Rosario RN - 06/14/2023 9:28 AM EST Pt calling in; states he is to have procedure with JBP today but is experiencing fevers, vomiting, diarrhea. EP upkeep mechanic notified to call pt to cancel and reschedule. [facility]03-07-2024 Telephone encounter Note* Telephone Encounter - Georgia Harvey LPN - 06/14/2023 9:28 AM EST Called and spoke with pt, pt confirmed N/V/D and fever. Advised pt to call when symptoms resolve and will reschedule Pt stated he did miss Eliquis dose last night and no meds currently d/t vomiting. Will notify JBP [facility]03-05-2024 Miscellaneous Notes* Telephone Encounter - Bharti Milian RN - 06/12/2023 5:10 PM EST Called patient with JBP's response to start Magnesium Oxide 400 twice a day by mouth. Patient agreeable and wants RX sent to [facility]. Rx sent to sign. Has some at home and will start tonight. tkm ----- Message from Chhaya Whatley MD sent at 06/12/2023 4:40 PM EST ----- Please have patient start taking magnesium oxide 400 mg twice a day. Thank you Dirk documented in this encounterSelect [facility]03-05-2024 Telephone encounter Note* Telephone Encounter - Bharti Milian RN - 06/12/2023 5:10 PM EST Called patient with JBP's response to start Magnesium Oxide 400 twice a day by mouth. Patient agreeable and wants RX sent to [facility]. Rx sent to sign. Has some at home and will start tonight. tkm ----- Message from Chhaya Whatley MD sent at 06/12/2023 4:40 PM EST ----- Please have patient start taking magnesium oxide 400 mg twice a day. Thank you Dirk [facility] [employer] [id number] Miscellaneous Notes* Telephone Encounter - Ambar Figueroa LPN - 06/11/2023 3:23 PM EST Images from the original note were not included. [facility] Physicians Cardiology: Cardioversion or DFT Testing Procedure: Cardioversion Physician: Dr. 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 [facility] instructions can be incorrect and provide the wrong information about your procedure. If you have any questions or concerns about preparing for your procedure, please call the EP Surgery office at [phone] For additional questions and to schedule any follow up appointments please call the main [facility] Cardiology office at [phone] documented in this encounterSelect Medical [facility]03-04-2024 Telephone encounter Note* Telephone Encounter - Ambar Figueroa LPN - 06/11/2023 3:23 PM EST Images from the original note were not included. [facility] Cardiology: Cardioversion or DFT Testing Procedure: Cardioversion Physician: Dr. 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 [facility] instructions can be incorrect and provide the wrong information about your procedure. If you have any questions or concerns about preparing for your procedure, please call the EP Surgery office at [phone] For additional questions and to schedule any follow up appointments please call the main [facility] Cardiology office at [phone] [facility]02-26-2024 Miscellaneous Notes* Telephone Encounter - Ambar Figueroa [...] not hold any medication, pamela done at [facility]. Diagnosis persistent atrial fibrillation. History: Patient with [...] AFib. Thank you Dirk documented in this encounterSelect Medical [facility]02-26-2024 Telephone encounter Note* Telephone Encounter - Ambar Figueroa LPN - 06/04/2023 3:05 PM EST ISAÍAS HEREDIA is requesting a CDVN for this pt, please review and advise thank you. [facility]-26-2024 Telephone encounter Note* Telephone Encounter - Chhaya [...] not hold any medication, pamela done at [facility] by [facility]. Diagnosis persistent atrial fibrillation. History: Patient with [...] in management of AFib. Thank you Dirk [employer] Work Phone: 1(332) 778-325102-26-2024 History of Present illness Narrative* Sarai Velasco MD - 06/04/2023 2:15 PM EST Esme Lopezowan Date of visit: 06/04/2023 Date of : 1960 Age: 62 y.o. 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 Hypertension Nonrheumatic mitral (valve) insufficiency Hyperlipidemia Other transient cerebral ischemic attacks and related syndromes Obstructive sleep apnea Dizziness Severe obesity (BMI 35.0-39.9) with comorbidity ([facility]-H[facility]) Coronary artery disease involving lone pine coronary artery of lone pine heart without angina pectoris Atrial fibrillation Allergies [...] coronary artery bypass graft with angina pectoris (CMS-HCC) Heart failure ([facility]) Hyperlipidemia Hypertension Meniere disease Myocardial infarction (CMS-HCC) Nonrheumatic mitral (valve) insufficiency Obstructive sleep apnea Other transient cerebral ischemic attacks and related syndromes No data recorded No data recorded No data recorded Past Surgical History: Procedure Laterality Date APPENDECTOMY BACK SURGERY Coronary angiogram + graft/lone pine N/A 02/03/2020 Performed by John Talavera MD at [facility] CARDIAC CATH LABS CORONARY ARTERY [...] completed IMPRESSIONS/PLAN 1. Coronary artery disease involving lone pine coronary artery of lone pine heart without angina pectoris - POCT EKG [...] BROWER DO Referring Physician: Vitaliy Brower DO [address] [place] [address] documented in this encounterSelect Medical [facility]ty [facility]02-26-2024 Instructions* Patient Instructions* Zhane Ceja RN - 06/04/2023 2:15 PM EST Pt needs scheduled for cardioversion at [facility] next week. He has been on eliquis without missing any doses. Thx slm documented in this encounterSelect Medical [facility]ty [facility]02-23-2024 Miscellaneous Notes* Telephone Encounter - Melinda Gomes CMA - 06/01/2023 3:32 PM EST Called patient to remind them to bring their most current copy of their medication list with them to their appt. Patient verbalizes understanding. documented in this encounterSelect [facility] [employer] intern[employer] [id number] Telephone encounter Note* Telephone Encounter - Melinda SUDHIR Gomes - 06/01/2023 3:32 PM EST Called patient to remind them to bring their most current copy of their medication list with them to their appt. Patient verbalizes understanding. [facility] [employer] [id number] Evaluation note* Encounter Date Diagnosis Assessment Notes Treatment Notes Treatment Clinical Notes May, Acute pain of left knee (ICD-10 - M25.562) [email or web address] Other 02-12-2024 Evaluation note* Encounter Date Diagnosis [...] Pain of left calf (ICD-10 - M79.662) [facility] Other 02-07-2024 Evaluation note* Encounter Date Diagnosis Assessment Notes Treatment Notes Treatment Clinical Notes May, Aftercare following joint replacement surgery (ICD-10 - Z47.1) May, Presence of right artificial hip joint (ICD-10 - Z96.641) May, S/P total left hip arthroplasty (ICD-10 - Z96.642) May, Other [facility] at [facility] on 02/13/2023 At this point he is doing really well with the actual hip. We talked about being more aggressive and going to surgery to close this wound but the patient was recently diagnosed with atrial fibrillation. In my discussions with anesthesiology this would need to be worked up and evaluated by the tractor trailer truck driver before considering a surgery unless it was an emergency. At this point I do not feel it is actively infected so I do not feel it is a emergent surgery. He does see Garfield in [place] on 06/04/2023. Our plan at this time is to continue with the wound VAC with home health nursing who will come back on Sunday to put the wound VAC back on. I will then plan to see him in about 3 weeks which would be a day or 2 after he has seen his tractor trailer truck driver. At that point in time we will make a decision on the wound. If it is continuing to heal up and closed with the assistance of the wound VAC that is fantastic but if it still needs help then we will be aggressive at that time as long as his tractor trailer truck driver allows. Discussed post-op dental prophylaxis. Shared decision made to continue prophylactic antibiotics indefinitely. [email or web address] Other 01-29-2024 Evaluation note* Encounter Date Diagnosis [...] sometime in November to further discuss surgery. [email or web address] Other 01-24-2024 Evaluation note* Encounter Date Diagnosis [...] are maintaining regular scheduled appts with their tractor trailer truck driver. He understands that he must have surgery postponed for 4 wks for the new onset AFib. and postpone for 4-7 wks for COVID infection. Apr, Hypomagnesemia (ICD-10 - E83.42) Replace Magnesium w/ supplements Decrease Alcohol use. Recheck prior to any restortation of sinus rhythm [email or web address] Other 01-10-2024 NoteXR CHEST 1 VW Procedure: Chest x-ray performed Number of views:AP portable erect History:Palpitations, A. fib Comparison:07/18/2014 Findings: The heart and lungs show no acute findings, and the mediastinum and yue are grossly negative . There is a median sternotomy Impression: No acute change. Finalized by Sandra Barba DO on 04/18/2023 1:14 [facility] 04-18-2023 Miscellaneous Notes* Telephone Encounter - Florence [...] left and told him to call his tractor trailer truck driver. Pt not dyspneic. Does have some dizzy symptoms. Pt not on any blood thinners. Instructed to go to ER for evaluation documented in this encounterMayo [facility] Hospital404 Found!01-10-2024 Telephone encounter Note* Telephone Encounter - Florence [...] left and told him to call his tractor trailer truck driver. Pt not dyspneic. Does have some dizzy symptoms. Pt not on any blood thinners. Instructed to go to ER for evaluation [facility] Evaluation note* Encounter Date Diagnosis Assessment Notes [...] or dyspnea, instructed to go to ER [email or web address] Other 01-03-2024 Evaluation note* Encounter Date Diagnosis [...] will call us to get in sooner. [email or web address] Other 12-28-2023 Evaluation note* Encounter Date Diagnosis [...] and acute blood loss anemia are contributing [email or web address] Other 12-21-2023 Evaluation note* Encounter Date Diagnosis Assessment Notes Treatment Notes Treatment Clinical Notes Mar, Aftercare following joint replacement surgery (ICD-10 - Z47.1) Mar, Presence of right artificial hip joint (ICD-10 - Z96.641) Mar, S/P total left hip arthroplasty (ICD-10 - Z96.642) Mar, Other [facility] R [facility]ER at [facility] on 02/13/2023 Overall he is doing great [...] continue increasing activities as tolerated. Continue taking vcvi-[id number] anti-inflammatorie s as needed for assistance with swelling and pain associated with the operative extremity. [email or web address] Other 12-07-2023 Evaluation note* Encounter Date Diagnosis [...] in the office today and providing supervision. [email or web address] Other 12-07-2023 Evaluation note* Encounter Date Diagnosis [...] answered to the best of my ability. [email or web address] Other 12-04-2023 Evaluation note* Encounter Date Diagnosis Assessment Notes Treatment Notes Treatment Clinical Notes Mar, Primary osteoarthritis of right hip (ICD-10 - M16.11) [place] [address] [facility] Other 11-29-2023 Miscellaneous Notes* Telephone Encounter - [...] to My Chart if tests completed at [facility]: normal labs and no inflammation. Continue [...] normal esr 9, crp<0.3; documented in this encounterPromedica [facility]11-29-2023 Evaluation note* Encounter Date Diagnosis Assessment [...] follow-up appointments based on that incision check. [email or web address] Other 11-27-2023 History of Present illness Narrative* [...] no Dactylitis: no H/o precedent/frequent infection(s): no Enthesopathy/Camden's/heel/plantar tenderness: no Skin thickening, psoriasis, photosensitivity, purpura: no Nail changes: no Alpecia, patchy: no Eye inflammation: glasses SICCA: no Oral/nasal/genital ulcers: no GI problems-diarrhea/bleeding/IBD/Gluten intolerence/Dysphagia: occasionally gerd Raynaud's phenomenon/digital ulcers: no Organ inv-Serositis: no Lung disease/ILD: no Myopathy/proximal muscle weakness: no Abnormal Urine or urethritis: no Renal/liver disease: as above 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 R76.8 CHENCHO [...] touching your toes, sit-ups, using row machine shelter pain recommendations per primary care provider/pain clinic [...] video & audio (virtual) or phone or [id number] patient care, completing clinical documentation, obtaining and/or [...] cc Vitaliy Brower DO documented in this encounterPromedica Bay Park Hospital11-26-2023 Instructions* Patient Instructions* Heladio Pineda MD [...] touching your toes, sit-ups, using row machine termite treater pain recommendations per primary care provider/pain clinic [...] Ab, Total Negative Negative documented in this encounterPromedica Bay Park Hospital11-25-2023 Miscellaneous Notes* Telephone Encounter - Heladio [...] - This Specialty 01/05/2023 PMR (polymyalgia rheumatica) ([facility]) Rheumatology Heladio Pineda MD 11/17/2013 Wrist [facility] 10/29/2013 Pseudogout Rheumatology Tracy Conley Upcoming Rheumatology Appointments - Next 365 Days Visit Type Date Time Department MICHEAL EST [facility] 03/05/2023 2:00 PM [facility] CBC: CBC Latest Ref [...] diagnoses: Vitamin B12 deficiency documented in this encounterPromedica Bay Park Hospital11-22-2023 Evaluation note* Encounter Date Diagnosis Assessment [...] total left hip arthroplasty (ICD-10 - Z96.642) [email or web address] Other 10-27-2023 Evaluation note* Encounter Date Diagnosis [...] patient could proceed with surgery safely. The market asset protection manager was vital for surgery timing and [...] plans. Prolonged services time spent: 34 minutes [email or web address] Other 10-25-2023 Evaluation note* Encounter Date Diagnosis Assessment Notes Treatment Notes Treatment Clinical Notes Jan, Primary osteoarthritis of right hip (ICD-10 - M16.11) Jan, Other 1. Right [facility]ER Home Medications - DVT prophylaxis: Aspirin - NSAID: Home prednisone - Disposition: Same-day discharge Joints Meeting Checklist - Pharmacy: [facility] to bed - Approach/Technique: anterior, [place] bed - Implants: Avenir Complete/G7; - Anesthesia: general vs spinal - Blocks: Fascia iliaca - Preop Antibiotics: Ancef and Vanco - TXA: yes-systemic - Positioning/OR Bed: supine on [place] bed - Intraop X-ray: yes - [place]: [...] above surgery. OARRS report generated and reviewed. [email or web address] Other 10-18-2023 Evaluation note* Encounter Date Diagnosis [...] w/ plan to start MTX after surgery [email or web address] Other 10-05-2023 Miscellaneous Notes* Telephone Encounter - Melany Pearson MA - 01/11/2023 8:43 AM EDT Spoke to pt aware of results and recommendations. * Telephone Encounter - Heladio Pineda MD - 01/10/2023 5:14 PM EDT Please Call patient if MyChart note not read to review results/released to My Chart if tests completed at [facility]: Mildly Low vitamin D maybe associated with fatigue/joint/muscle pain. Start vitamin D 4000 International Units daily with food. Mildly Low vitamin b12- maybe associated with fatigue, may start over the counter vitamin [id number] daily by mouth or notify office if [...] hepatitis panel, quantiferon tb; documented [facility] Instructions* Patient Instructions* Heladio Pineda MD [...] touching your toes, sit-ups, using row machine shelter pain recommendations per primary care provider/pain clinic [...] your usual activities immediately. documented in this encounterProm[facility] History of Present illness Narrative* Heladio Pineda MD - 01/05/2023 11:31 AM EDT NEW CONSULT:RHEUMATOLOGY SERVICE SERVICE DATE: 01/05/2023 SERVICE TIME: 11:31 AM REASON FOR CONSULT: joint pain 2nd opinion REQUESTING PHYSICIAN: Dr.Benjamin Inocente DO PRIMARY CARE PHYSICIAN: Vitaliy Brower DO Patient's Name: Esme Steven [address] [place] [address] Accompanied by: self This consult was requested for my medical opinion regarding the rheumatologic evaluation of the patient's joint pain problems, and my final recommendations will be communicated to the requesting health care provider by way of the shared medical record for internal providers or letter via the [facility] Postal Service for external providers. 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 Steven's ASA to his tractor trailer truck driver, but guidelines favor continuing without interruption, if [...] E06.3) Clinically euthyroid, continue treatment without interruption [email or web address] Other 09-19-2023 Evaluation note* Encounter Date Diagnosis [...] Dec, Multiple joint pain (ICD-10 - M25.50) [facility] Other 08-17-2023 Evaluation note* Encounter Date Diagnosis Assessment Notes Treatment Notes Treatment Clinical Notes Nov, Pseudogout (ICD-10 - M11.20) [facility] Other 08-16-2023 Evaluation note* Encounter Date Diagnosis Assessment Notes Treatment Notes Treatment Clinical Notes Nov, Primary osteoarthritis of right hip (ICD-10 - M16.11) [facility] Other 08-15-2023 Evaluation note* Encounter Date Diagnosis [...] refer to Heladio Pineda for rheumatology consult [email or web address] Other 08-07-2023 Evaluation note* Encounter Date Diagnosis [...] (ICD-10 - Z12.5) Yearly MELBA and PSA [facility] Other 07-19-2023 Evaluation note* Encounter Date Diagnosis Assessment Notes Treatment Notes Treatment Clinical Notes Oct, Superficial ulcer of lower extremity (ICD-10 - L97.909) Cleanse w/ soap and water. Elevate as much as possible. No improvement, refer to wound clinic Oct, Cellulitis of left lower extremity (ICD-10 - L03.116) Keep clean, elevate and use Mupirocin bid. Begin antibiotics. [facility] Other 06-27-2023 Evaluation note* Encounter Date Diagnosis [...] palpitations or lightheadedness He completed evaluation w/ Packager Head w/o changes Instructed to avoid use of Nitroglycerine w/ Sildenafil. Instructed to avoid use if develop CP, palpitations or lightheadedness [facility] Other 06-21-2023 Evaluation note* Encounter Date Diagnosis Assessment Notes Treatment Notes Treatment Clinical Notes Sep, FER (obstructive sleep apnea) (ICD-10 - G47.33) AHI 25, Psat 80% [facility] Other 06-21-2023 Evaluation note* Encounter Date Diagnosis Assessment Notes Treatment Notes Treatment Clinical Notes Sep, FER (obstructive sleep apnea) (ICD-10 - G47.33) AHI 35 [facility] Other 05-03-2023 Evaluation note* Encounter Date Diagnosis [...] recurrent major depressive disorder (ICD-10 - F33.0) [facility] Other 05-01-2023 Evaluation note* Encounter Date Diagnosis [...] note writ ten by Kevyn Corona MA, Inverter And Clipper. Edited and approved by Dr. Jonathan Samano MD. [facility] Other 04-25-2023 Evaluation note* Encounter Date Diagnosis Assessment Notes Treatment Notes Treatment Clinical Notes Jul, Myalgia (ICD-10 - M79.10) [facility] Other 04-24-2023 Evaluation note* Encounter Date Diagnosis Assessment Notes Treatment Notes Treatment Clinical Notes Jul, Right shoulder pain (ICD-10 - M25.511) [facility] Other 04-21-2023 Evaluation note* Encounter Date Diagnosis [...] of yearly testing Sent order to complete [facility] Other 03-28-2023 Evaluation note* Encounter Date Diagnosis [...] left shoulder, initial encounter (ICD-10 - S40.012A) [facility] Other 02-27-2023 Evaluation note* Encounter Date Diagnosis [...] note writ ten by Jeff Nieto LPN, Inverter And Clipper. Edited and approved by Dr. Jonathan Samano MD. [facility] Other 02-27-2023 Evaluation note* Encounter Date Diagnosis [...] the injection well with no adverse reaction. [facility]360 Other 02-20-2023 Evaluation note* Encounter Date Diagnosis [...] to continue exercise and AHA diet plan. [facility] Other 02-14-2023 Evaluation note* Encounter Date Diagnosis Assessment Notes Treatment Notes Treatment Clinical Notes May, Tongue ulceration (ICD-10 - K14.0) Magic Mouth Wash qid. Refer to ENT May, Hoarseness of voice (ICD-10 - R49.0) Refer to ENT May, Odynophagia (ICD-10 - R13.10) Refer to ENT [facility] Other 01-04-2023 Evaluation note* Encounter Date Diagnosis [...] note writ ten by Jeff Nieto LPN, Inverter And Clipper. Edited and approved by Dr. Jonathan Samano MD. [facility] Other 11-30-2022 Evaluation note* Encounter Date Diagnosis [...] note writ ten by Jeff Nieto LPN, Inverter And Clipper. Edited and approved by Dr. Jonathan Samano MD. [facility] Other 11-09-2022 Evaluation note* Encounter Date Diagnosis [...] and tingle for hours after this injection. [facility] Other 11-07-2022 Evaluation note* Encounter Date Diagnosis [...] condition. Feb, Cervical pain (ICD-10 - M54.2) 07 Nov, 2022 Other Above note writ ten by Jeff Nieto LPN, Inverter And Clipper. Edited and approved by Dr. Jonathan Samano MD. [facility] Other 06-22-2022 Evaluation note* Encounter Date Diagnosis Assessment Notes Treatment Notes Treatment Clinical Notes Sep, Primary osteoarthritis of right hip (ICD-10 - M16.11) Sep, Primary osteoarthritis of left hip (ICD-10 - M16.12) Sep, S/P total left hip arthroplasty (ICD-10 - Z96.642) Sep, Other [facility] on 07/04/2021 Doing well. Again discussed getting [...] to call with any questions or concerns. [facility]360 Other 06-06-2022 Evaluation note* Encounter Date Diagnosis Assessment Notes Treatment Notes Treatment Clinical Notes Sep, Right hand pain (ICD-10 - M79.641) Sep, Arthritis of right hand (ICD-10 - M19.041) Right long finger MCP joint injected with cortisone under sterile technique, patient tolerated well. Will discuss surgical options with Dr Nichole [facility] Other 05-11-2022 Evaluation note* Encounter Date Diagnosis Assessment Notes Treatment Notes Treatment Clinical Notes August, Primary osteoarthritis of right hip (ICD-10 - M16.11) August, Primary osteoarthritis of left hip (ICD-10 - M16.12) August, S/P total left hip arthroplasty (ICD-10 - Z96.642) August, Other [facility] at [facility] on 07/04/2021 Doing well Patient may continue increasing activities as tolerated. Continue taking [id number]-[id number] anti-inflammatori es as needed for assistance with swelling and pain associated with the operative extremity. Follow-up in 6 weeks for repeat examination and repeat x-rays. [facility] Other 04-13-2022 Evaluation note* Encounter Date Diagnosis Assessment Notes Treatment Notes Treatment Clinical Notes Jul, Primary osteoarthritis of right hip (ICD-10 - M16.11) Jul, Primary osteoarthritis of left hip (ICD-10 - M16.12) Jul, Other [facility] at [facility] on 07/04/2021 Doing well. Steri-Strips applied. Discussed [...] off narcotic pain medication. They can take hock-fxd-kisviqc anti-inflammatories as needed for assistance with swelling [...] shoe for his standing weightbearing pelvis x-ray. [facility]360 Other 03-18-2022 Evaluation note* Encounter Date Diagnosis [...] patient could proceed with surgery safely. The market asset protection manager was vital for surgery timing and [...] echo and a heart cath by his tractor trailer truck driver. He was then cleared from a cardiology standpoint. Any recommendations made by these care providers were taken into consideration for the patient's perioperative and postoperative treatment plans. Prolonged services time spent: 33 minutes [email or web address] Other 03-11-2022 Evaluation note* Encounter Date Diagnosis [...] - Pharmacy: [facility] to bed - Approach/Technique: anterior, [place] bed - Implants: Avenir Complete/G7; - Anesthesia: general - Blocks: Fascia iliaca - Preop Antibiotics: Ancef - TXA: yes-systemic - Positioning/OR Bed: supine on [place] bed - Intraop X-ray: yes - Otoole: [...] elected to proceed with the above surgery. [email or web address] Other 11-16-2021 Evaluation note* Encounter Date Diagnosis [...] note writ ten by Erica Valenzuela CMA, Inverter And Clipper. Edited and approved by Dr. Jonathan Samano MD. [facility]360 Other 09-29-2021 Evaluation note* Encounter Date Diagnosis [...] note writ ten by Erica Valenzuela CMA, Inverter And Clipper. Edited and approved by Dr. Jonathan Samano MD. magnify360 Other Evaluation note* Diagnosis Swelling of knee joint- Primary Effusion of lower leg joint documented in this encounter [facility] HospitalEvaluation noteNo InformationNort [address] Hero Other Evaluation noteNo assessment information available 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 Encounter for long-term (current) use of steroids CHENCHO positive Other and unspecified nonspecific immunological findings Bilateral hand swelling [facility] PMR (polymyalgia rheumatica) (HCC)- Primary Polymyalgia rheumatica Elevated sed rate Elevated sedimentation rate Elevated C-reactive protein (CRP) Vitamin D deficiency Unspecified vitamin D deficiency Vitamin B12 deficiency Other B-complex deficiencies [facility] Diagnosis PMR (polymyalgia rheumatica) (HCC)- Primary [...] in 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, 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 Encounter for long-term (current) use of steroids CHENCHO positive Other and unspecified nonspecific immunological findings Chronic pain of both knees Bilateral hand pain Pain in limb [facility] Diagnosis PMR (polymyalgia rheumatica) (HCC)- Primary Polymyalgia rheumatica Elevated sed rate Elevated sedimentation rate Elevated C-reactive protein (CRP) [facility] Diagnosis Steroid-induced osteoporosis Other osteoporosis documented [...] acute Hyperlipidemia acute Hypertension acute Hypothyroidism acute [facility] Work Phone: Evaluation note* Diagnosis PMR (polymyalgia rheumatica) (HCC)- Primary Polymyalgia rheumatica Elevated sed rate Elevated sedimentation rate Elevated C-reactive protein (CRP) Vitamin D deficiency Unspecified vitamin D deficiency documented [facility] this encounter [facility] Diagnosis Persistent atrial fibrillation (Multi)- Primary Atrial fibrillation Multi-vessel coronary artery stenosis Cardiomyopathy, ischemic Other specified forms of chronic ischemic heart disease Mixed hyperlipidemia 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 (Multi) Atrial fibrillation Status post aorto-coronary artery bypass graft 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 of anticoagulant therapy BMI 35.0-35.9,adult documented in this encounter [facility] Work Phone: Evaluation note* Diagnosis Onset Date Resolution Status Aftercare following hip joint replacement surgery acute History of total replacement of right hip acute Aftercare following hip joint replacement surgery acute History of total replacement of right hip acute ASHD (arteriosclerotic heart disease) acute Atrial fibrillation acute GENESIS (generalized anxiety disorder) acute Hypertension acute [facility] Work Phone: Evaluation note* Diagnosis 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 (Multi) Atrial fibrillation documented in this encounter [facility] Work Phone: Evaluation note* Diagnosis Onset [...] acute SIRS (systemic inflammatory response syndrome) acute [facility] Work Phone: Evaluation note* Diagnosis Onset [...] acute SIRS (systemic inflammatory response syndrome) acute [facility] Work Phone: Evaluation note* Diagnosis PMR (polymyalgia rheumatica) (HCC)- Primary Polymyalgia rheumatica Elevated sed rate Elevated sedimentation rate Elevated C-reactive protein (CRP) documented [facility] Diagnosis Onset Date Resolution Status Aftercare following hip joint replacement surgery acute History of total replacement of right hip acute ASHD (arteriosclerotic heart disease) acute GENESIS (generalized anxiety disorder) acute Acute diverticulitis acute Acute diverticulitis acute ASHD (arteriosclerotic heart disease) acute Inflammatory polyarthritis a cute Persistent atrial fibrillation acute Primary hypertension acute [facility] Work Phone: Evaluation note* Diagnosis 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 (tophi) Hyperuricemia Other abnormal blood chemistry documented [facility] this [facility] Diagnosis Onset Date Resolution Status Acute diverticulitis acute Elevated lactic acid level r esolved Acute diverticulitis acute ASHD (arteriosclerotic heart disease) acute Inflammatory polyarthritis a cute Persistent atrial fibrillation acute Primary hypertension acute Biceps tendonitis on right a cute Rotator cuff syndrome of right shoulder acute Traumatic complete tear of left rotator cuff acute [facility] Work Phone: Evaluation note* Diagnosis Onset [...] of colon noneactive Wellness examination noneact mallory [facility] Work Phone: Evaluation note* Diagnosis Elevated sed rate Elevated sedimentation rate Elevated C-reactive protein (CRP) PMR (polymyalgia rheumatica) (HCC) Polymyalgia rheumatica [facility] Diagnosis Onset Date Resolution Status Biceps tendonitis on right a cute Rotator cuff syndrome of right shoulder acute Traumatic complete tear of left rotator cuff acute Acute right flank pain acute ASHD (arteriosclerotic heart disease) acute Atrial fibrillation acute GENESIS (generalized anxiety disorder) acute Gastroesophageal reflux dise ase with esophagitis without hemorrhage acute Hypercholesterolemia acute Hypothyroid acute EFR (obstructive sleep apnea) acute Primary hypertension acute Screening PSA (prostate specific antigen) noneactive H/O diverticulitis of colon noneactive Wellness examination noneact [facility] Work Phone: Evaluation note* Diagnosis Onset Date Resolution Status Acute right flank pain acute ASHD (arteriosclerotic heart disease) acute Atrial fibrillation acute GENESIS (generalized anxiety disorder) acute Gastroesophageal reflux dise ase with esophagitis without hemorrhage acute Hypercholesterolemia acute Hypothyroid acute FER (obstructive sleep apnea) acute Primary hypertension acute Screening PSA (prostate specific antigen) noneactive H/O diverticulitis of colon noneactive Wellness examination noneact [facility] Work Phone: Evaluation note* Diagnosis Atrial fibrillation, unspecified type (Multi) Preoperative examination Unspecified pre-operative examination Presence of Watchman left atrial appendage closure device Atrial fibrillation, unspecified type (Multi) Presence of Watchman left atrial appendage closure device documented in this encounter [facility] Work Phone: Evaluation note* Diagnosis Onset [...] noneact mallory Primary osteoarthritis, right hand acute [facility] Work Phone: Evaluation note* Diagnosis Persistent atrial fibrillation (Multi)- Primary Atrial fibrillation Status post aorto-coronary artery bypass graft Presence of Watchman left atrial appendage closure device Multi-vessel coronary artery stenosis Mixed hyperlipidemia Cardiomyopathy, ischemic Other specified forms of chronic ischemic heart disease Dilated aortic root (CMS-HCC) Thoracic aneurysm without mention of rupture Never smoked cigarettes BMI 35.0-35.9,adult documented in this encounter [facility] Work Phone: Evaluation note* Diagnosis Persistent atrial fibrillation (Multi)- Primary Atrial fibrillation Status post aorto-coronary artery bypass graft Mixed hyperlipidemia Cardiomyopathy, ischemic Other specified forms of chronic ischemic heart disease Multi-vessel coronary artery stenosis BMI 35.0-35.9,adult Never smoked cigarettes documented in this encounter [facility] Work Phone: Evaluation note* Diagnosis 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 (Multi)- Primary Atrial fibrillation Persistent atrial fibrillation (Multi) Atrial fibrillation documented in this encounter [facility] Work Phone: Evaluation note* Diagnosis Persistent atrial fibrillation (CMS-HCC)- Primary Atrial fibrillation Coronary artery disease involving [place] coronary artery of [place] heart without angina pectoris [facility] Diagnosis Hypomagnesemia- Primary Disorders of magnesium metabolism [facility] Diagnosis Atrial fibrillation, unspecified type (Multi) documented in this encounter [facility] Work Phone: Evaluation note* Diagnosis PMR [...] multiple joints Other disorder of calcium metabolism 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 Encounter for [...] of high-risk medication documented [facility] Diagnosis 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 (tophi) Vitamin D deficiency Unspecified vitamin D deficiency Elevated LFTs Other abnormal blood chemistry Anemia of chronic disease Anemia of other chronic disease Hyperuricemia Other abnormal blood chemistry [facility] this [facility]* Diagnosis Persistent atrial fibrillation (Multi)- Primary Atrial fibrillation Multi-vessel coronary artery stenosis Status post aorto-coronary artery bypass graft Mixed hyperlipidemia Dilated aortic root Thoracic aneurysm without mention of rupture Cardiomyopathy, ischemic Other specified forms of chronic ischemic heart disease Presence of Watchman left atrial appendage closure device BMI 32.0-32.9,adult Never smoked cigarettes documented in this encounter [facility] Work Phone: Evaluation note* Diagnosis Idiopathic [...] hip pain, bilateral documented [facility] this encounter [facility] Diagnosis Pseudogout involving multiple joints- Primary [...] bilateral Rotator cuff arthropathy of left shoulder 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 Encounter for long-term (current) use of steroids Bilateral hand swelling Chronic pain of both knees Leg weakness, bilateral Other musculoskeletal symptoms referable to limbs Chronic bilateral low back pain without sciatica Bilateral knee swelling Effusion of lower leg joint [facility] this [facility]* Diagnosis Persistent atrial fibrillation (Multi)- Primary Atrial fibrillation Multi-vessel coronary artery stenosis Status post aorto-coronary artery bypass graft Presence of Watchman left atrial appendage closure device Mixed hyperlipidemia Dilated aortic root Thoracic aneurysm without mention of rupture Cardiomyopathy, ischemic Other specified forms of chronic ischemic heart disease Never smoked cigarettes BMI 32.0-32.9,adult documented in this encounter [facility] Work Phone: Evaluation note* Diagnosis Status post aorto-coronary artery bypass graft- Primary Multi-vessel coronary artery stenosis Presence of Watchman left atrial appendage closure device Persistent atrial fibrillation (Multi) Atrial fibrillation Mixed hyperlipidemia Dilated aortic root Thoracic aneurysm without mention of rupture Cardiomyopathy, ischemic Other specified forms of chronic ischemic heart disease Never smoked cigarettes Obesity (BMI 30-39.9) documented in this encounter [facility] Work Phone: History and physical note Author Elliott Talley [facility] August 30, 2023 11:34pm Note Date/Time August 30, 2023 11:04 pm [facility] [address] [place] [address] Hospitalist H&P Signed Patient: Esme Steven MR#: [id number] : 1960 Acct:[id number] Age/Sex: 62 / M Adm Date: 4 Loc: Room: [address] [place] [address] Type: ADM IN Attending Dr: Elliott Talley [...] that which is noted above in HPI [facility] Medical History (Updated 08/30/23 @ 23:33 [...] mg tablet,delayed release 81 mg PO DAILY ID prevention 10/23/17 [History Confirmed 08/30/23] atorvastatin 80 mg tablet [...] % (Auto) 4.4 % (.) 08/30/23 18:20 [place] % (Auto) 2.3 % (.) 08/30/23 18:20 Eos % (Auto) 0.1 % (.) 08/30/23 18:20 Baso % (Auto) 0.8 % (.) 08/30/23 18:20 Nucleat RBC Rel Count 0.0 /100 WBC (0-0.5) 08/30/23 18:20 Neut # (Auto) 13.4 x10E3/uL (1.8-7.7) H 08/30/23 18:20 Lymph # (Auto) 0.6 x10E3/uL (1.00-4.8) L 08/30/23 18:20 [place] # (Auto) 0.3 x10E3/uL (0.0-0.8) 08/30/23 18:20 [...] pH 5.5 (5.0-9.0) 08/30/23 18:45 Ur Specific [place] 1.016 (1.001-1.030) 08/30/23 18:45 Urine Protein Negative [...] pink Documented By: Elliott Talley MD 4 [id number] Signed By: <Electronically signed by Elliott Talley MD> 08/30/23 1507 [facility] Work Phone: History and physical note Author Mehrdad Mcmanus [facility] December 31, 2023 12:47pm Note Date/Time December 31, 2023 12:47pm [facility] [address] [place] [address] Gastroenterology H&P Signed Patient: Esme Steven MR#: [id number] : 1960 Acct:[id number] Age/Sex: 63 / M Adm Date: 4 Loc: Room: Type: [facility] Attending Dr: Mehrdad Mcmanus MD Copies to: [...] By: <Electronically signed by Mehrdad Mcmanus MD> 12/31/231246 [facility] Work Phone: History and physical note Author Ada Valentin [facility] Note Date/Time October 01, 2024 1:17 pm [facility] [address] [place] [address] Hospitalist H&P Signed Patient: Esem Steven MR#: [id number] : 1960 Acct:[id number] Age/Sex: 63 / M Adm Date: 5 Loc: 3T Room: [address] [place] [address] Type: ADM INOo Attending Dr: Leidy Nuno [...] systems obtained, negative unless noted in the HPI [facility] Source: Old Records Reviewed Medical History Vitamin [...] % (Auto) 11.5 % (.) 09/30/24 14:21 [place] % (Auto) 3.9 % (.) 09/30/24 14:21 Eos % (Auto) 0.2 % (.) 09/30/24 14:21 Baso % (Auto) 0.6 % (.) 09/30/24 14:21 Nucleat RBC Rel Count 0.1 /100 WBC (0-0.5) 09/30/24 14:21 Neut # (Auto) 14.2 x10E3/uL (1.8-7.7) H 09/30/24 14:21 Lymph # (Auto) 1.9 x10E3/uL (1.00-4.8) 09/30/24 14:21 [place] # (Auto) 0.7 x10E3/uL (0.0-0.8) 09/30/24 14:21 [...] signed by Leidy Nuno DO> 10/01/24 1317 [facility] Work Phone: Hislcvi general Narrative - Reported* Type Description Date [...] Harmony willams 2012 Hospitalization History see above magnify360 Other Hismggb general Narrative - Reported* Type Description Date [...] knee replacement 2012 Hospitalization History see above magnify360 Other Hiscqhy general Narrative - Reported* Type Description Date [...] Harmony willams 2012 Hospitalization History see above magnify360 Other [facility] Other Hisdvth general Narrative - Reported* Type Description Date [...] History LTHA 07/04/21 Hospitalization History see above magnify360 Other Hisahec general Narrative - Reported* Type Description Date [...] History LTHA 07/04/21 Hospitalization History see above magnify360 Other [facility] [place] [facility] general Narrative - Reported* Type Description Date [...] History LTHA 07/04/21 Hospitalization History see above magnify360 Other history general Narrative - Reported* Type [...] Right PETER 02/2023 Hospitalization History see above magnify360 Other history general Narrative - Reported* Type [...] Surgical History Right PETER 02/2023 Surgical History [facility] 05/2021 Surgical History [facility] w/ PTCA/stent 2005 Surgical History [facility] 2006 Surgical History [facility] 2008 Surgical History [facility] 2010 Surgical History [facility] w/ PTCA/stent 2013 Hospitalization History see above magnify360 Other Hospital Discharge instructions Additional Instructions Joint Replacement Discharge Instructions Your safety during your recovery process is important to us. Please seek immediate emergency care if you have sudden chest pain or shortness of breath. Additionally, please call our office at [phone] should any of the following occur: wound [...] NOT take a bath, enter a pool, madird pond, or ocean until we discuss this [...] to walk without your walker and your chiropractic care until the therapist checks you the following [...] and/or laxatives as directed. You may take seqq-hrb-uqiklwu Benadryl if itching occurs without a rash or hives. Icing and elevation will help relieve pain as well, do not underestimate the power of ice and elevation. We do recommend that you stop taking narcotic pain medications by 4-6 weeks after surgery and if necessary, continue to use anti-inflammatory medications such as Mobic (meloxicam), Celebrex (celecoxib), or an eroe-ltg-sgjbhbt medication (Aleve, Motrin, Ibuprofen, etc). Driving an [...] feel free to call our office at [phone]. You are a priority of ours and we will not be upset with you if you call. We would much rather you call to confirm aspects of your recovery process as opposed to possibly hindering your recovery with inappropriate care. We are committed to providing you with the best care possible. Sarai Mendez II, MD Updated 06/23/2022[facility] Work Phone: Hospital Discharge instructions Additional Instructions Stop Eliquis on 09/16/2024[facility] Work Phone: InstructionsNot on filedocumented in this encounter [facility] filedocument[facility] in this encounter [facility]ructionsNot on filedocumented in this encounter [facility]ructionsNot on filedocumented in this encounter [facility] SystemInstructionsNot on filedocumented in this encounter [facility]Progress note Author Sally [facility] August 31, 2023 3:45pm Note Date/Time August 31, 2023 10:54 am [facility] [address] [place] [address] Hospitalist Progress Note Signed with Addenda Patient: Esme Steven MR#: [id number] : 1960 Acct:[id number] Age/Sex: 62 / M Adm Date: 4 Loc: Room: [address] [place] [address] Type: ADM IN Attending Dr: Sally Alex [...] signed by DO RADHA Zavala> 08/31/23 1054 [facility] Work Phone: Reason for referral (narrative)* Reason Referral for suspect ed PMR Known OA spine, hips, knees, hands Diagnosis 1 PMR (polymyalgia rhe umatica) (M35.3) Referral Organization [facility] Inocente faye Referring Provider First Name Vitaliy Referring Provider Last Name Inocente Referring Provider Specialty Internal Me dicine Referred Organization [facility] Referred Provider Sarai Georges Referred Address [address] [facility] [place],[address] Referral [address] [facility] Diagnostic Procedure Only (Routine) - Authorized Specialty Diagnoses / Procedures Referred By Contac t Referred To Contact XR IMAGING Diagnoses Steroid-induced osteoporosis Procedures DXA-FOREARM SKELETON DXA BONE DENSITY STUDY 1/>SITES Heladio Alvarado MD [address] [facility] [place] [address] [place] [address] Referral ID Status Reason Start Date Expiration Date Visits Requested Visits Authorized [id number] Authorized Auto-Generat ed Referral 01/05/2023 02/04/2024 1 1 [facility] for referral (narrative)* Diagnostic Procedure Only (Routine) - Closed Specialty Diagnoses / Procedures Referred By Contac t Referred To Contact XR IMAGING Diagnoses Steroid-induced osteoporosis Procedures DXA-FOREARM SKELETON DXA BONE DENSITY STUDY 1/>SITES Heladio Alvarado MD [address] [facility] [place] [address] [place] [address] Referral ID Status Reason Start Date Expiration Date V isits Requested Visits Authorized [id number] Closed Auto-Generate d Referral 01/05/2023 02/04/2024 1 1 [facility] for referral (narrative)* Consultation (Routine) - Authorized Specialty Diagnoses / Procedures Referred By Contac t Referred To Contact Cardiology Diagnoses 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 (Multi) Procedures Follow Up In Cardiology Antonio Steele MD [address] [place] [address] Antonio Steele MD [address] [place] [address] Referral ID Status Reason Start Date Expiration Date V isits Requested Visits Authorized [id number] Authorized 10/18/2023 10/17/2024 1 1 [facility] Work Phone: Reason for visit Narrative* Diagnostic Procedure Only (Routine) - Closed Specialty Diagnoses / Procedures Referred By Breonnaac t Referred To Contact XR IMAGING Diagnoses Steroid-induced osteoporosis Procedures DXA-FOREARM SKELETON DXA BONE DENSITY STUDY 1/>SITES APPENDICLR Heladio David MD [address] [place] [address] [place] [address] Referral ID Status Reason Start Date Expiration Date V isits Requested Visits Authorized [id number] Closed Auto-Generate d Referral 01/05/2023 02/04/2024 1 1 [facility] N[facility]* Auth/Cert Specialty Diagnoses / Procedures Referred By Mario t Referred To Contact Diagnoses Atrial fibrillation, unspecified type (Multi) Atrial fibrillation, unspecified type (Multi) [I48.91] Procedures PA EXCLUSION LEFT ATRIAL APPENDAGE OPEN ANY METHOD PA PERQ CLSR TCAT L ATR APNDGE W/ENDOCARDIAL IMPLNT PA PERQ CLSR TCAT L ATR APNDGE W/ENDOCARDIAL IMPLNT LAAO (Left Atrial Appendage Occlusion) [place] [address] [place] [address] Phone: tel: fax: [facility] [address] [address] Phone: tel: fax: Referral ID Status Reason Start Date Expiration Date Visits Re quested Visits Authorized [id number] 1 1 [facility] Work Phone: Recxqb for visit Narrative* Imaging (Routine) - Authorized Specialty Diagnoses / Procedures Referred By Breonnaac t Referred To Contact Radiology Diagnoses Atrial fibrillation, unspecified type (Multi) Procedures [place] [address] [place] [address] Phone: tel: fax: Referral ID Status Reason Start Date Expiration Date Visits Requested Visits Authorized [id number] Authorized Perform Procedure 12/27/2023 12/26/2024 1 1 [facility] Work Phone: Chief Complaint and Reason [...] Complaint Hip pain Hip pain Chief Complaint Op/Publicity Agent Left Shoulder Pain Mri Done At 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 Recheck Left Shoulder Cannot Have Surger Z47.1/Z96.641 T84.84XA Z96.652 M79.662 Chief Complaint Flu Shot/ Bp Check Discussion About Packager Head Recheck Left Shoulder Cannot Have Surger Z47.1/Z96.641 [...] 2024 3:02pm ASHD (arteriosclerotic heart disease) De cember 2023 3:02pm Cough March 17, 2024 3 [...] 17, 2024 3:02pm ASHD (arteriosclerotic heart disease) [facility] 3:02pm Cough March 17, 2024 3 [...] Visit Admit Date ASHD (arteriosclerotic heart disease) [facility] 2024 1:11pm GENESIS (generalized anxiety disorder) [...] Visit Admit Date ASHD (arteriosclerotic heart disease) [facility] 2024 1:11pm GENESIS (generalized anxiety disorder) [...] Visit Admit Date ASHD (arteriosclerotic heart disease) [facility] 2024 1:11pm GENESIS (generalized anxiety disorder) [...] Visit Admit Date ASHD (arteriosclerotic heart disease) [facility] 2024 1:11pm GENESIS (generalized anxiety disorder) [...] Visit Admit Date ASHD (arteriosclerotic heart disease) [facility] 2024 1:11pm GENESIS (generalized anxiety disorder) [...] m Chest Pain August 12, 2024 3:23pm [facility]: Chest Pain-HIGH RISK August 19 4:09pm Reason for Visit Admit Date ASHD (arteriosclerotic heart disease) [facility] 2024 1:11pm GENESIS (generalized anxiety disorder) [...] m Chest Pain August 12, 2024 3:23pm [facility]: Chest Pain-HIGH RISK August 19 4:09pm afib [...] m Chest Pain August 12, 2024 3:23pm [facility]: Chest Pain-HIGH RISK August 19 4:09pm afib [...] September 30 4:14pm ASHD (arteriosclerotic heart disease) [place] 2024 4:14pm Atypical chest pain September 30, [...] m Chest Pain August 12, 2024 3:23pm [facility]: Chest Pain-HIGH RISK August 19 4:09pm afib [...] m Chest Pain August 12, 2024 3:23pm [facility]: Chest Pain-HIGH RISK August 19 4:09pm afib [...] 3:07 am ASHD (arteriosclerotic heart disease) Ju 2024 4:14pm Hypercholesterolemia September 30, 2024 4:1 [...] [facility] December 15, 2024 10:51am Chief Complaint Admit Date Angina September 29, [...] Cough, broken rib December 26, 2024 9:33am Reason for Visit Admit Date Abnormal cardiovascular [...] 15, 2024 10:51am Other spondylosis with radiculopathy, [facility] December 15, 2024 10:51am Rib fracture December 26, 2024 9:33am Chest pain December 26, 2024 9:33am Chief Complaint Admit Date Chest pain October 08, 2024 1:53p m [...] STEROID INJECTION /VW December 29, 2024 11:55am Reason for Visit Admit Date ASHD (arteriosclerotic heart disease) Ju 2024 1:53pm [...] 15, 2024 10:51am Other spondylosis with radiculopathy, [facility] December 15, 2024 10:51am Acute bronchitis due to other specified organisms December 26, 2024 9:33am Rib fracture December 26, 2024 9:33am Laceration of leg excluding thigh, with complication December 26, 2024 9:33am Cellulitis of leg without foot, left Sep tember 2024 9:33am Chief Complaint Admit Date Chest pain October 08, 2024 1:53p m [...] EPIDURAL STEROID INJECTION Se ptember 2024 9:45am Reason for Visit Admit Date ASHD (arteriosclerotic heart disease) Ju 2024 1:53pm [...] 15, 2024 10:51am Other spondylosis with radiculopathy, [facility] December 15, 2024 10:51am Acute bronchitis due to other specified organisms December 26, 2024 9:33am Rib fracture December 26, 2024 9:33am Laceration of leg excluding thigh, with complication December 26, 2024 9:33am Cellulitis of leg without foot, left Sep tember 2024 9:33am Low back pain January 05, 2025 9:45am Other chronic pain January 05, 2025 9:45am Other spondylosis with radiculopathy, [facility] January 05, 2025 9:45am Chief Complaint Admit Date Z96.641 - Presence [...] Z96.641 - January 07, 2025 1: 51pm Reason for Visit Admit Date Greater trochanteric bursitis of right h ip October 23, 2024 1:54pm History of total right hip arthroplasty October 23, 2024 1:54pm Persistent atrial fibrillation December 09, 2024 8:11am Low back pain December 15, 2024 10:51am Other chronic pain December 15, 2024 10:51am [facility] December 15, 2024 10:51am Acute bronchitis due to other specified organisms December 26, 2024 9:33am Rib fracture December 26, 2024 9:33am Laceration of leg excluding thigh, with complication December 26, 2024 9:33am Cellulitis of leg without foot, left Sep tember 2024 9:33am Low back pain January 05, 2025 9:45am Other chronic pain January 05, 2025 9:45am Other spondylosis [facility] January 05, 2025 9:45am Greater trochanteric bursitis of right h ip January 07, 2025 12:22pm History of total right hip arthroplasty January 07, 2025 12:22pm Chief Complaint Admit Date Z96.641 - Presence [...] leg wound January 12, 2025 2: 23pm Family History Relationship Condition Age at Onset [...] Cerebral aneurysm Unknown brother Exposure to Agent [place] Unknown Relationship Condition Age at Onset Recorded Date/T daren Not Specified Calculus of kidney Unknown Presence of cardiac pacemaker Unknown Cerebrovascular accident (CVA) Unknown father Coronary artery disease Unknown brother Cerebral aneurysm Unknown brother Exposure to Agent [place] Unknown brother Unknown father Unknown Not Specified Unknown History of stroke Unknown Heart disease Unknown Relationship Condition Age at Onset Recorded Date/T daren Not Specified Calculus of kidney Unknown Presence of cardiac pacemaker Unknown Cerebrovascular accident (CVA) Unknown History of stroke Unknown Unknown Heart disease Unknown father Coronary artery disease Unknown brother Cerebral aneurysm Unknown Exposure to Agent [place] Unknown Relationship Condition Age at Onset Recorded Date/T daren mother Calculus of kidney Unknown Presence of cardiac pacemaker Unknown Cerebrovascular accident (CVA) Unknown History of stroke Unknown Unknown Heart disease Unknown father Coronary artery disease Unknown brother Cerebral aneurysm Unknown Exposure to Agent [place] Unknown Relationship Condition Age at Onset Recorded Date/T daren mother Heart disease Unknown Calculus of kidney Unknown Unknown Presence of cardiac pacemaker Unknown Cerebrovascular accident (CVA) Unknown father History of coronary artery stent placement Unknown Coronary artery disease Unknown brother Unknown Exposure to Agent [place] Unknown brother Cerebral aneurysm Unknown Advance Directives Advance Directive Response Recorded Date/ Time Advance Directives No January 25, 2017 2:08pm Advance Directive Response Recorded Date/ Time Advance Directives No January 25, 2017 1:08pm Date Activated Date Inactivated Comments 01/29/2024 9:31 AM Question Answer Comments Plan of Care: Code Status Discussion Completed Decision Maker: Patient Date Activated Date Inactivated Comments 01/29/2024 9:31 AM Question Answer Comments Plan of Care: Code Status Discussion Completed Decision Maker: Patient Reason for Referral Specialty Diagnoses / Procedures Referred By Contac t Referred To Contact Diagnoses Persistent atrial fibrillation ([facility]) Procedures Cardioversion external Sarai Velasco MD [address] [place] [address] Referral ID Status Reason Start Date Expiration Date V isits Requested Visits Authorized [id number] Pending Review 06/04/2023 06/03/2024 1 1 Specialty Diagnoses / Procedures Referred By Contac t Referred To Contact Diagnoses 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 (Multi) Procedures ECG 12 Lead Antonio Steele MD [address] [place] [address] Referral ID Status Reason Start Date Expiration Date V isits Requested Visits Authorized [id number] Authorized 07/27/2023 07/26/2024 1 1 Specialty Diagnoses / Procedures Referred By Contac t Referred To Contact Cardiology Diagnoses 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 (Multi) 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 of anticoagulant therapy Procedures Cardioversion External Antonio Steele MD [address] [facility] [address] [place] [address] Referral ID Status Reason Start Date Expiration Date V isits Requested Visits Authorized [id number] Pending Review 07/27/2023 07/26/2024 1 1 Referral ID Status Reason Start Date Expiration Date V isits Requested Visits Authorized [id number] Authorized 07/27/2023 07/26/2024 1 1 Specialty Diagnoses / Procedures Referred By Contac t Referred To Contact Cardiology Diagnoses 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 (Multi) Procedures Follow Up In Cardiology Antonio Steele MD [address] [facility] [address] [place] [address] Antonio Steele MD [address] [place] [address] Referral ID Status Reason Start Date Expiration Date V isits Requested Visits Authorized [id number] Authorized 07/27/2023 07/26/2024 1 1 Reason *FU 11/[address] r frankie to dr pineda for rheumatology. labs with Dr Brower. Saw [facility], wants second opinion Diagnosis 1 Multiple joint pain (M25.50) Referral Organization [facility] [place] [facility] Referring Provider First Name Melinda Referring Provider Last Name Luba Referring Provider Specialty Nurse Pract itioner Referred Organization [facility] Referred Provider Heladio Pineda Referred Address [address] [place], [place],[address] Referred Provider Specialty Internal Med icine Referral [...] 1 Tongue ulceration (K 14.0) Referral Organization [facility] Mikaela faye Referring Provider First Name Vitaliy Referring Provider Last Name Inocente Referring Provider Specialty Internal Me dicine Referred Organization [facility] Referred Provider BoboromyRadha Referred Address ,[place], [place],[address] Referred Provider Specialty Ear, Nose an d [...] or prosecute any alcohol or drug abuse patient.[facility] Hospital[facility] the event this information is protected by the Federal Confidentiality of Alcohol and Drug Abuse Patient Records regulations: The Federal rules restrict any use of the information to criminally investigate or prosecute any alcohol or drug abuse patient.[facility] the event this information is protected by the Federal Confidentiality of Alcohol and Drug Abuse Patient Records regulations: The Federal rules restrict any use of the information to criminally investigate or prosecute any alcohol or drug abuse patient.[facility] Hospital[facility] the event this information is protected by the Federal Confidentiality of Alcohol and Drug Abuse Patient Records regulations: The Federal rules restrict any use of the information to criminally investigate or prosecute any alcohol or drug abuse patient.[facility] Hospital[facility] the event this information is protected by the Federal Confidentiality of Alcohol and Drug Abuse Patient Records regulations: The Federal rules restrict any use of the information to criminally investigate or prosecute any alcohol or drug abuse patient.[facility] Hospital[facility] the event this information is protected by the Federal Confidentiality of Alcohol and Drug Abuse Patient Records regulations: The Federal rules restrict any use of the information to criminally investigate or prosecute any alcohol or drug abuse patient.[facility] Hospital[facility] the event this information is protected by the Federal Confidentiality of Alcohol and Drug Abuse Patient Records regulations: The Federal rules restrict any use of the information to criminally investigate or prosecute any alcohol or drug abuse patient.[facility] Hospital[facility] the event this information is protected by the Federal Confidentiality of Alcohol and Drug Abuse Patient Records regulations: The Federal rules restrict any use of the information to criminally investigate or prosecute any alcohol or drug abuse patient.[facility] Hospital[facility] the event this information is protected by the Federal Confidentiality of Alcohol and Drug Abuse Patient Records regulations: The Federal rules restrict any use of the information to criminally investigate or prosecute any alcohol or drug abuse patient.[facility] Hospital[facility] the event this information is protected by the Federal Confidentiality of Alcohol and Drug Abuse Patient Records regulations: The Federal rules restrict any use of the information to criminally investigate or prosecute any alcohol or drug abuse patient.[facility] Hospital[facility] the event this information is protected by the Federal Confidentiality of Alcohol and Drug Abuse Patient Records regulations: The Federal rules restrict any use of the information to criminally investigate or prosecute any alcohol or drug abuse patient.[facility] Hospital[facility] the event this information is protected by the Federal Confidentiality of Alcohol and Drug Abuse Patient Records regulations: The Federal rules restrict any use of the information to criminally investigate or prosecute any alcohol or drug abuse patient.[facility] Hospital[facility] the event this information is protected by the Federal Confidentiality of Alcohol and Drug Abuse Patient Records regulations: The Federal rules restrict any use of the information to criminally investigate or prosecute any alcohol or drug abuse patient.[facility] Hospital[facility] the event this information is protected by the Federal Confidentiality of Alcohol and Drug Abuse Patient Records regulations: The Federal rules restrict any use of the information to criminally investigate or prosecute any alcohol or drug abuse patient.[facility] HospitalIn the event this information is protected by the Federal Confidentiality of Alcohol and Drug Abuse Patient Records regulations: The Federal rules restrict any use of the information to criminally investigate or prosecute any alcohol or drug abuse patient.[facility] Hospital[facility] the event this information is protected by the Federal Confidentiality of Alcohol and Drug Abuse Patient Records regulations: The Federal rules restrict any use of the information to criminally investigate or prosecute any alcohol or drug abuse patient.[facility] Hospital[facility] the event this information is protected by the Federal Confidentiality of Alcohol and Drug Abuse Patient Records regulations: The Federal rules restrict any use of the information to criminally investigate or prosecute any alcohol or drug abuse patient.[facility] HospitalIn the event this information is protected by the Federal Confidentiality of Alcohol and Drug Abuse Patient Records regulations: The Federal rules restrict any use of the information to criminally investigate or prosecute any alcohol or drug abuse patient.[facility] REASON FOR VISIT (unrecogniz ed section and content) Reason Comments Consult Pain Ongoing generalized pain. Reason Comments Results Reason Comments Refill Request Reason Comments Follow Up Reason Comments Results Orders Reason Comments New Patient Visit [id number], previous [facility] patient Specialty Diagnoses / Procedures Referred By Contac t Referred To Contact Diagnoses 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 (Multi) Procedures ECG 12 Lead Antonio Steele MD [facility] 2, [address] [address] Referral ID Status Reason Start Date Expiration Date V isits Requested Visits Authorized [id number] Authorized 07/27/2023 07/26/2024 1 1 Reason Comments EKG visit Specialty Diagnoses / Procedures Referred By Contac t Referred To Contact Diagnoses 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 (Multi) Procedures ECG 12 Lead Antonio Steele MD [facility] 2, [address] [address] Referral ID Status Reason Start Date Expiration Date V isits Requested Visits Authorized [id number] Authorized 07/27/2023 07/26/2024 1 1 Reason Onset Date Comments Refill Request 12/13/2023 Reason Comments Follow-up Watchman 01/29/24 Reason Comments Follow-up 3 month Specialty Diagnoses / Procedures Referred By Contac t Referred To Contact Cardiology Diagnoses 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 (Multi) Procedures Follow Up In Cardiology Antonio Steele MD [address] [facility] 2, [place] [address] [place] [address] Antonio Steele MD [address] [place] [address] [address], [address] [address] Referral ID Status Reason Start Date Expiration Date V isits Requested Visits Authorized [id number] Authorized 07/27/2023 07/26/2024 1 1 Reason Comments [email or web address] Specialty Diagnoses / Procedures Referred By Contac t Referred To Contact Cardiology Diagnoses Persistent atrial fibrillation (Multi) Antonio Steele MD [address] [place] [address] 2, [address] [address] [place] [address] [place] [id number] Referral ID Status Reason Start Date Expiration Date Visits Requested Visits Authorized [id number] Authorized Specialty Services Required 10/26/2023 10/25/2024 1 [...] Follow Up In Cardiology Antonio Steele MD [address] [place] [address] [address], [address] [address] Phone: tel: fax: Antonio Steele MD [facility] 2, [address] [address] Phone: tel: fax: Referral ID Status Reason Start Date Expiration Date V isits Requested Visits Authorized [id number] Authorized 02/14/2024 02/13/2025 1 1 Reason Comments Orders Appointment Reason Comments Osteoarthritis CPPD PMR Reason Comments CPPD Gout Arthritis Reason Comments Follow-up 3 months dcc Specialty Diagnoses / Procedures Referred By Contac t Referred To Contact Cardiology Diagnoses Multi-vessel coronary artery stenosis Procedures Follow Up In Cardiology Antonio Steele MD [address], [address] [address] Phone: tel: fax: Antonio Steele MD Wil[facility]no 2, [address] [address] Phone: tel: fax: Referral ID Status Reason Start Date Expiration Date V isits Requested Visits Authorized [id number] Authorized 08/22/2024 08/22/2025 1 1 Reason Comments Follow-up EKG visit Specialty Diagnoses / Procedures Referred By Contac t Referred To Contact Diagnoses History of cardioversion Abnormal electrocardiogram (ECG) (EKG) Persistent atrial fibrillation (Multi) Procedures ECG 12 Lead Antonio Steele MD [address] [facility] 2, [address] [address] Phone: tel: fax: Referral ID Status Reason Start Date Expiration Date V isits Requested Visits Authorized [id number] Authorized 12/12/2024 12/12/2025 1 1 Reason Comments Follow-up DCC results Specialty Diagnoses / Procedures Referred By Contac t Referred To Contact Cardiology Diagnoses Multi-vessel coronary artery stenosis Procedures Follow Up In Cardiology Antonio Steele MD [address], [address] [address] Phone: tel: fax: Antonio Steele MD [facility] 2, [address] [address] Phone: tel: fax: Referral ID Status Reason Start Date Expiration Date V isits Requested Visits Authorized [id number] Authorized 11/19/2024 11/19/2025 1 1 Care Teams (unrecognized sec tion [...] December 15, 2024 End: December 15, 2024 Team Status: Active Member Role Status Dates Vitaliy Brower DO Primary Care Provider Active Start: December 15, 2024 Marcela Ortiz CMA Attending Provider Active Start: December 15, 2024 Team Status: Active Member Role Status Dates Vitaliy Brower DO Primary Care Provider Active Start: 2024 Casimiro Landaverde PA-C Attending Provider Active St art: 2024 Team Status: Active Member Role Status Dates Vitaliy Brower DO Primary Care Provider Active Start: December 18, 2024 Marcela Ortiz CMA Attending Provider Active Start: December 18, 2024 Team Status: Inactive Member Role Status Dates Vitaliy Brower DO Primary Care Provider Active Start: December 26, 2024 End: December 26, 2024 Vitaliy Brower DO Attending Provider Active Sta rt: December 26, 2024 End: December 26, 2024 Team Status: Inactive Member Role Status Dates Vitaliy Brower DO Primary Care Provider Active Start: December 29, 2024 End: December 29, 2024 Jonathan Samano MD Attending Provider Active Sta rt: December 29, 2024 End: December 29, 2024 Team Status: Active Member Role Status Nader [...] Team Status: Inactive Member Role Status Dates Vtialiy Brower DO Primary Care Provider Active Start: [...] Admit Provider Active Start: M ay 2024 End: August 13, 2024 Lydia Connelly [...] 2024 End: August 13, 2024 Nicolle Amaya SOAKING PIT OPERATOR- Other Provider Active Sta rt: August 11, 2024 End: August 13, 2024 Team Status: Active Member Role Status Dates Vitaliy Brower DO Primary Care Provider Active Start: August 12, 2024 Marcela Ortiz CMA Attending Provider Active Start: August 12, 2024 Team Status: Active Member Role Status Dates Vitaliy Brower DO Primary Care Provider Active Start: August 12, 2024 Winnie Grande , Emergency Provider Active St art: August 12, 2024 Lydia Connelly MD Admit Provider Active Start: M ay 2024 Lydia Connelly MD Other Provider Active Start: M ay 2024 Mary Ann Miller RN Other Provider [...] Start: M ay 2024 Nicolle Amaya , [facility] Other Provider Active Sta rt: August 12, [...] 2024 Heladio Pineda Attending Provider Active Start: arch 2024 Team Status: Inactive Member Role Status Dates Vitaliy Ball , DO Primary Care Provide r, Attending [...] End: August 13, 2024 Nicolle Amaya , [facility]- Other Provider Active Sta rt: August 11, 2024 End: August 13, 2024 Team Status: Active Member Role Status Dates Vitaliy Brower DO Primary Care Provider Active Start: August 12, 2024 Winnie Grande , Emergency Provider Active St art: August 12, 2024 Lydia Connelly MD Admit Provider, Othe r Provider Active Start: August 12, 2024 Mary Ann Miller RN Other Provider Active Star t: August 12, 2024 Kathy Valle DO Other Provider Active Start : August 12, 2024 Llaa Arce MD Other Provider Active Start: August [...] Start: M ay 2024 Nicolle Amaya , [facility] Other Provider Active Sta rt: August 12, [...] Provider Active SERGIO Beatty-C Emergency Provider Active Campaign Coordinator Relationship Specialty Start Date End Date Vitaliy Brower DO [address] [place] [address] PCP - General Internal Medicine 01/05/23 Melinda Verduzco, RESEARCH QUALITY ASSURANCE SPECIALIST [address] [place] [address] Referring Orthopedics 11/24/22 Campaign Coordinator Relationship Specialty Start Date End Date Vitaliy Brower DO [address] [place] [address] PCP - General Internal Medicine 01/05/23 Melinda Verduzco, RESEARCH QUALITY ASSURANCE SPECIALIST [address] [address] Referring Orthopedics 11/24/22 Campaign Coordinator Relationship Specialty Start Date End Date Vitaliy Brower DO [address] [place] [address] PCP - General Internal Medicine 01/05/23 Melinda Verduzco, RESEARCH QUALITY ASSURANCE SPECIALIST [address] [place] [address] Referring Orthopedics 11/24/22 Campaign Coordinator Relationship Specialty Start Date End Date Vitaliy Brower DO [address] [place] [address] PCP - General Internal Medicine 01/05/23 Melinda Verduzco, RESEARCH QUALITY ASSURANCE SPECIALIST [address] [place] [address] Referring Orthopedics 11/24/22 Team Status: Inactive Member [...] End: May 21, 2023 Melinda Verduzco , PRECISION FILER HAND-C Attending Provider Active Start: May 21, 2023 End: May 21, 2023 Campaign Coordinator Relationship Specialty Start Date End Date Vitaliy Brower DO [address] [place] [address] PCP - General Internal Medicine 01/05/23 Melinda Verduzco, RESEARCH QUALITY ASSURANCE SPECIALIST [address] [place] [address] Referring Orthopedics 11/24/22 Campaign Coordinator Relationship Specialty Start Date End Date Vitaliy Brower DO [address] [place] [address] PCP - General Internal Medicine 01/05/23 Melinda Verduzco, RESEARCH QUALITY ASSURANCE SPECIALIST [address] [place] [address] Referring Orthopedics 11/24/22 Campaign Coordinator Relationship Specialty Start Date End Date Vitaliy Brower DO [address] [place] [address] PCP - General Internal Medicine 01/05/23 Melinda Verduzco, RESEARCH QUALITY ASSURANCE SPECIALIST [address] [place] [address] Referring Orthopedics 11/24/22 Campaign Coordinator Relationship Specialty Start Date End Date Vitaliy Brower DO [address] [place] [address] PCP - General Internal Medicine 07/12/23 Campaign Coordinator Relationship Specialty Start Date End Date Vitaliy Brower DO PCP - General Internal Medicine 07/12/23 Campaign Coordinator Relationship Specialty Start Date End Date Vitaliy Brower DO [address] [place] [address] PCP - General Internal Medicine 01/05/23 Melinda Verduzco, RESEARCH QUALITY ASSURANCE SPECIALIST [address] [place] [address] Referring Orthopedics 11/24/22 Campaign Coordinator Relationship Specialty Start Date End Date Vitaliy Brower DO [address] [place] [address] PCP - General Internal Medicine 01/05/23 Melinda Verduzco, RESEARCH QUALITY ASSURANCE SPECIALIST [address] [place] [address] Referring Orthopedics 11/24/22 Campaign Coordinator Relationship Specialty Start Date End Date Vitaliy Brower DO [address] [place] [address] PCP - General Internal Medicine 01/05/23 Melinda Verduzco, PLAYROOM ATTENDANT.RESEARCH QUALITY ASSURANCE SPECIALIST [address] [place] [address] Referring Orthopedics 11/24/22 Team Status: Active Member [...] January 24, 2024 End: January 24, 2024 Campaign Coordinator Relationship Specialty Start Date End Date Vitaliy Brower DO PCP - General Internal Medicine 07/12/23 Team Status: Inactive Member Role Status Dates Vitaliy Brower DO Primary Care Provider Active Start: February 12, 2024 End: February 12, 2024 Chio Nichole MD Attending Provider Active Start: February 12, 2024 End: February 12, 2024 Campaign Coordinator Relationship Specialty Start Date End Date Vitaliy Brower DO PCP - General Internal Medicine 07/12/23 Team Status: Inactive Member Role Status Dates Vitaliy Brower DO Primary Care Provider Active Start: February 18, 2024 End: February 18, 2024 Sukhjinder Montesinos DO Attending Provider Active St art: February 18, 2024 End: February 18, 2024 Campaign Coordinator Relationship Specialty Start Date End Date Vitaliy Brower DO PCP - General Internal Medicine 07/12/23 Campaign Coordinator Relationship Specialty Start Date End Date Vitaliy Brower DO PCP - General Internal Medicine 07/12/23 Campaign Coordinator Relationship Specialty Start Date End Date Vitaliy Brower DO [address] [place] [address] PCP - General 01/08/18 Team Status: Inactive Member Role Status Dates Vitaliy Brower DO Primary Care Provide r, Attending Provider Active Start: March 17, 2024 End: March 17, 2024 Campaign Coordinator Relationship Specialty Start Date End Date Vitaliy Brower DO [address] [place] [address] PCP - General 01/08/18 Campaign Coordinator Relationship Specialty Start Date End Date Vitaliy Brower DO [address] [place] [address] PCP - General 01/08/18 Campaign Coordinator Relationship Specialty Start Date End Date Vitaliy Brower DO [address] [place] [address] PCP - General 01/08/18 Campaign Coordinator Relationship Specialty Start Date End Date Vitaliy Brower DO [address] [place] [address] PCP - General 01/08/18 Campaign Coordinator Relationship Specialty Start Date End Date Vitaliy Brower DO [address] [place] [address] PCP - General Internal Medicine 05/07/24 Campaign Coordinator Relationship Specialty Start Date End Date Vitaliy Brower DO [address] [place] [address] PCP - General Internal Medicine 01/05/23 Melinda Verduzco APRN.RESEARCH QUALITY ASSURANCE SPECIALIST [address] [place] [address] Referring Orthopedics 11/24/22 Campaign Coordinator Relationship Specialty Start Date End Date Vitaliy Brower DO [address] [place] [address] PCP - General Internal Medicine 01/05/23 Melinda Verduzco APRN.RESEARCH QUALITY ASSURANCE SPECIALIST [address] [place] [address] Referring Orthopedics 11/24/22 Team Status: Active Member [...] Provider A ctive Start: August 11, 2024 Campaign Coordinator Relationship Specialty Start Date End Date Vitaliy Brower DO [address] [place] [address] PCP - General Internal Medicine 05/07/24 Campaign Coordinator Relationship Specialty Start Date End Date Vitaliy Brower DO [address] [place] [address] PCP - General Internal Medicine 01/05/23 Melinda Verduzco, PLAYROOM ATTENDANT.RESEARCH QUALITY ASSURANCE SPECIALIST [address] [place] [address] Referring Orthopedics 11/24/22 Campaign Coordinator Relationship Specialty Start Date End Date Vitaliy Brower DO [address] [place] [address] PCP - General Internal Medicine 01/05/23 Melinda Verduzco, PLAYROOM ATTENDANT.RESEARCH QUALITY ASSURANCE SPECIALIST [address] [address] Referring Orthopedics 11/24/22 Campaign Coordinator Relationship Specialty Start Date End Date Vitaliy Brower DO [address] [place] [address] PCP - General Internal Medicine 01/05/23 Melinda Verduzco, PLAYROOM ATTENDANT.RESEARCH QUALITY ASSURANCE SPECIALIST [address] [address] Referring Orthopedics 11/24/22 Campaign Coordinator Relationship Specialty Start Date End Date Vitaliy Brower DO [address] [place] [address] PCP - General Internal Medicine 01/05/23 Melinda Verduzco, PLAYROOM ATTENDANT.RESEARCH QUALITY ASSURANCE SPECIALIST [address] [place] [address] Referring Orthopedics 11/24/22 Team Status: Active Member Role Status Dates Vitaliy Brower DO Primary Care Provider Active Start: October 23, 2024 Sarai Mendez II, MD Attending Provider Active Start: October 23, 2024 Campaign Coordinator Relationship Specialty Start Date End Date Vitaliy Brower DO [address] [place] [address] PCP - General Internal Medicine 05/07/24 Campaign Coordinator Relationship Specialty Start Date End Date Vitaliy Brower DO [address] [place] [address] PCP - General Internal Medicine 05/07/24 Campaign Coordinator Relationship Specialty Start Date End Date Vitaliy Brower DO [address] [place] [address] PCP - General Internal Medicine 05/07/24 Team Status: Inactive Member Role Status Dates Vitaliy Brower DO Primary Care Provider Active Start: January 05, 2025 End: January 05, 2025 Jonathan Samano MD Attending Provider Active Sta rt: January 05, 2025 End: January 05, 2025 Team Status: Inactive Member Role Status Dates Vitaliy Brower DO Primary Care Provider Active Start: January 07, 2025 End: January 07, 2025 Sarai Mendez II, MD Attending Provider Active Start: January 07, 2025 End: January 07, 2025 Team Status: Inactive Member Role Status Dates Vitaliy Brower DO Primary Care Provider Active Start: January 12, 2025 End: January 12, 2025 Vitaliy Brower DO Attending Provider Active Sta rt: January 12, 2025 End: January 12, 2025 Goals (unrecognized section and content) Goals may be documented in a n alternate section (unrecognized sect ion and content) No Status Records FoundNo Status Records FoundNo Status Records FoundNo Status Records FoundNo Status Records FoundNo Status Records FoundNo Status Records FoundNo Status Records FoundNo Status Records FoundNo Status Records Found INFORMATION SOURCE (unrecogn ized section and content) DATE CREATED AUTHOR 08/05/2022 [facility] DATE CREATED AUTHOR AUTHOR'S ORGANIZ ATION 06/13/2023 [facility] DATE CREATED AUTHOR AUTHOR'S ORGANIZ ATION 06/29/2023 [facility] DATE CREATED AUTHOR AUTHOR'S ORGANIZ ATION 09/20/2023 [facility] DATE CREATED AUTHOR AUTHOR'S ORGANIZ ATION 01/31/2024 [facility] DATE CREATED AUTHOR AUTHOR'S ORGANIZ ATION 08/01/2024 [facility] DATE CREATED AUTHOR AUTHOR'S ORGANIZ ATION 08/25/2024 [facility] DATE CREATED AUTHOR AUTHOR'S ORGANIZ ATION 09/29/[address] [facility] DATE CREATED AUTHOR AUTHOR'S ORGANIZ ATION 12/23/2024 [facility] DATE CREATED AUTHOR AUTHOR'S ORGANIZ ATION 01/12/2025 [facility] Scheduled Active and Recently Administ [...] BE BASED ON THE PRIMARY CLINICAL RECORDS. [facility]. provides no warranty or guarantee of the accuracy or completeness of information in this document.
== END 2025-01-14 09:54 | disposition home or self-care (01) ==
LOC: WC 09:53
PROVIDERS: PCP Internal Medicine; Visit Provider Physician Assistant
DX: I87.312 Chronic venous hypertension (idiopathic) with ulcer of left lower extremity (principal); L97.822 Non-pressure chronic ulcer of other part of left lower leg with fat layer exposed
CPT/HCPCS: G0463

== ENCOUNTER 2025-02-17 14:38 | Outpatient (OUT) | payer MEDICARE, OTHER, SELFPAY ==
--- OUTSIDE RECORDS SUMMARY | 2025-02-11 10:00 | XMS_ITS | Encounter Summary ---
Author Organization [facility] 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 Name Role Phone Nitesh Garcia PA-C Primary Care Provider Reason for Referral * Eval and Treat (Routine) - Pending ReviewSpecialtyDiagnoses / Procedures Referred By ContactReferred To ContactPain Medicine / Pain Management Diagnoses Spinal stenosis of lumbar region with neurogenic claudication Arachnoiditis Nitesh Garcia PA-C [address] [address] Phone: tel: fax: Loren Dolan MD [address] [facility] [address] [place] [address] Phone: tel: fax: Referral IDStatusReasonStart DateExpiration DateVisits RequestedVisits [id number] Review Specialty Services Required /[id number] My clinical question is: LBP, arachnoiditis Comments The patient can be scheduled with any member of the group, including the provider with the first available appointments. * Imaging (Routine) - AuthorizedSpecialtyDiagnoses / ProceduresReferred By ContactReferred To ContactRadiology Diagnoses Spinal stenosis of lumbar region with neurogenic claudication Arachnoiditis Procedures MRI LUMBAR SPINE W WO CONTRAST Nitesh Garcia PA-C [address] [address] Phone: tel: fax: Referral IDStatusLexusnealStsandra DateExpiration DateVisits RequestedVisits [id number]/6/202511/6/202611 Reason for Visit * ReasonCommentsConsultationBack PainPatient presents today for Lumbar painPatient reported pain is into legs , patient was suppose to be scheduled for back surgeryPain 01/16 * Eval and Treat (Urgent) - Pending ReviewSpecialtyDiagnoses / Procedures Referred By ContactReferred To ContactNeurosurgery Diagnoses Other spondylosis with radiculopathy, lumbosacral region Coleman Luz, DO [address] [place] [address] Phone: tel: fax: Austen Patel MD [address] [place] [address] Phone: tel: fax: Referral IDStatusReasonStart DateExpiration DateVisits RequestedVisits [id number] Encounter Details DateTypeDepartmentCare Team (Latest Contact Info)Nxlpfrwtcsj31/05/2025 10:00 AM ESTOffice Visit [facility] a department of [address] [address] Austen Patel MD [address] [place] [address] Spinal stenosis of lumbar region with neurogenic claudication (Primary Dx); Arachnoiditis Social History Tobacco UseTypesPacks/DayYears UsedDateSmoking Tobacco: NeverSmokeless Tobacco: Never Tobacco Cessation:Counseling Given: Not Answered Alcohol UseStandard Drinks/WeekCommentsYes0 (1 standard drink = 0.6 oz pure alcohol)35 (1 standard drink = 0.6 oz pure alcohol)Sex and Gender Information ValueDate RecordedSex Assigned at BirthNot on fileLegal RijQcsv0605/19/2012 7:11 PM ESTGender IdentityNot on fileSexual OrientationNot on filedocumented as of this encounter Last Filed Vital Signs Vital SignReadingTime TakenCommentsBlood Pressure--Pulse--Temperature-- Respiratory Pcmx277604/13/2024 9:56 AM ESTOxygen Saturation--Inhaled Oxygen Concentration--Sbyaog42.3 kg (210 lb)02/11/2025 9:56 AM TDZLntsoa317.1 cm (5' 10.5 )02/11/2025 9:56 AM ESTBody Mass Index29.7102/11/2025 9:56 AM ESTdocumented in this encounter Patient Instructions * Patient Instructions* Donna Sam MA - 02/11/2025 10:14 AM EST Welcome to our practice and to our [facility] Family! Thank you for choosing us as your health care provider. In the coming days, you may receive a survey about your visit via text or email. Please take a few minutes to answer these questions. As our patient, we value your opinion and appreciate your feedback about your [facility] Experience. The Team That Took Care of you Today: Care Provider(s): Nitesh ETIENNE, Dr Patel Associate(s): We're looking forward to seeing you at your upcoming appointment Now you can save time and skip the clipboard! Pre-Registration lets you complete your appointment paperwork and pay your copay directly from your Style[employer]. Then, when you arrive for your appointment, simply stop at central check in, located on the first floor, and then proceed to the suite. We are located on the first floor in [address], right next to central check in. We are committed to providing you with exceptional care and look forward to seeing you at your upcoming appointment. If you have any questions or concerns, please do not hesitate to reach out to us. documented in this encounter Progress Notes * Austen Patel MD - 02/11/2025 10:27 AM EST NEUROSURGERY CONSULT NOTE Patient Name: César Steven Patient : 1960 PCP: No primary care provider on file. History of Present Ilness: 64 y.o. presents in neurosurgical consultation from No primary care provider on file. with right leg pain/numbness. 6 weeks ago patient was having left leg pain/numbness. Went to pain management for injection. Afterinjection, he has had severe entire right leg pain/numbness/weakness. No longer having left leg symptoms. Denies any LBP. Hx L4-S1 decompression 20 years ago. Did well since with minimal issues. Has history of coronary artery disease status post CABG. Chief Complaint Patient presents with Consultation Back Pain Patient presents today for Lumbar pain Patient reported pain is into legs , patient was suppose to be scheduled for back surgery Pain 01/16 Conservative Treatments: Physical Therapy in the last 6 months to a year: No NSAID's: Yes Narcotics: No Muscle relaxants: No Epidural injections: Yes epidural spinal injection By. Dr. Jonathan Guevara Past Medical History: No past medical history on file. Past Surgical History: No past surgical history on file. Home Medications: Prior to Admission medications Medication Sig Start Date End Date Taking? Authorizing Provider allopurinol (ZYLOPRIM) 100 MG tablet Take 2 tablets by mouth 07/07/24 Yes Kamron Ruiz MD celecoxib (CELEBREX) 200 MG capsule Take 1 capsule by mouth 2 times daily 09/13/24 Yes Kamron Ruiz MD dofetilide (TIKOSYN) 125 MCG capsule Take 1 capsule by mouth 12/12/24 Yes Kamron Ruiz MD vitamin D (ERGOCALCIFEROL) 1.25 MG (43048 UT) CAPS capsule (take by mouth with food twice a week, ONE CAPSULE ON SUNDAY AND ONE ON SUNDAY) FOR A TOTAL OF 10 WEEKS. Then once a week thereafter 07/07/24 Yes Kamron Ruiz MD spironolactone-hydroCHLOROthiazide (ALDACTAZIDE) 25-25 MG per tablet Take 1 tablet by mouth every morning 04/08/24 Yes Kamron Ruiz MD valsartan (DIOVAN) 40 MG tablet Take 1 tablet by mouth daily 11/19/24 11/19/25 Yes Kamron Ruiz MD ALPRAZolam (XANAX) 0.5 MG tablet 1 tablet. Kamron Ruiz MD aspirin 81 MG EC tablet Take 1 tablet by mouth daily Kamron Ruiz MD levothyroxine (SYNTHROID) 200 MCG tablet Take 1 tablet by mouth daily Kamron Ruiz MD magnesium oxide (MAG-OX) 400 MG tablet 1 tablet daily Kamron Ruiz MD Allergies: Not on File Social History: TOBACCO: reports that he has never smoked. He has never used smokeless tobacco. ETOH: reports current alcohol use. RECREATIONAL DRUG USE: Social History Substance and Sexual Activity Drug Use Never Family History: No family history on file. Review of Systems Constitutional: Negative for fatigue. HENT: Negative for hearing loss. Respiratory: Negative for shortness of breath. Gastrointestinal: Negative for constipation, diarrhea and nausea. Genitourinary: Negative for difficulty urinating. Musculoskeletal: Positive for back pain and neck pain. Skin: Negative for rash. Neurological: Positive for weakness. Negative for numbness and headaches. Hematological: Does not bruise/bleed easily. Psychiatric/Behavioral: Negative for sleep disturbance. Physical Examination: Vitals: 02/11/25 0956 Resp: 18 Physical Exam Constitutional: Appearance: Normal appearance. He is well-developed. HENT: Head: Normocephalic and atraumatic. Eyes: Conjunctiva/sclera: Conjunctivae normal. Comments: Pupils equal Cardiovascular: Comments: No peripheral edema Pulmonary: Effort: Pulmonary effort is normal. No respiratory distress. Abdominal: Palpations: Abdomen is soft. Tenderness: There is no abdominal tenderness. Musculoskeletal: Cervical back: Normal range of motion and neck supple. Skin: General: Skin is warm and dry. Neurological: General: No focal deficit present. Mental Status: He is alert. Mental status is at baseline. Coordination: Coordination normal. Comments: Motor 5/5 UE and LE except 4+/5 right HF Decreased sensation to LT entire right leg DTR's 2+ biceps, achilles and patella Psychiatric: Mood and Affect: Mood normal. Speech: Speech normal. Thought Content: Thought content normal. Gait normal Radiology Personal review: 01/30/2025 MRI lumbar spine without contrast done at [facility] shows clumping of nerve roots from L1-L3 consistent with arachnoiditis, there is moderate to severe right and moderate left foraminal stenosis L5-S1, there is moderate to severe bilateral foraminal stenosis L4-5, there is moderate central and moderate to severe foraminal stenosis L3-4, there is moderate bilateral foraminal stenosis L2-3 ASSESSMENT / PLAN : 64-year-old with history of coronary artery disease status post CABG and lumbar decompression in the , he started having left leg pain and numbness and underwent lumbar HANNA 6 weeks ago. Since then he has had complaints of right lower extremity pain, numbness and weakness down to the foot, denies any low back pain. Lumbar MRI reveals multilevel stenosis which is moderate to severe from L2-S1 as well as concerns for arachnoiditis L1-L3. Although he does have spinal stenosis which could be contributing, I am concerned that recent lumbar injection and arachnoiditis are contributing to the majority of symptoms. I explained to patient that surgical intervention will not help with arachnoiditis symptoms. Overall at this point likely risks outweigh benefits and he may not have significant improvement with surgical intervention. I would recommend further evaluation and management by pain management and I will obtain lumbar MRI with and without contrast to further assess the area of arachnoiditis and rule out mass as well as check dynamic x-rays and have him return to see me in 6 weeks to discuss further options. 1. Spinal stenosis of lumbar region with neurogenic claudication 2. Arachnoiditis No orders of the defined types were placed in this encounter. * Donna Sam MA - 02/11/2025 10:00 AM EST Patient Name: César Steven : 1960 Date: 02/11/2025 Type of Appt: Consult Reason for appt: M47.27 (ICD-10-CM spondylosis with radiculopathy, lumbosacral region Referred by: Coleman Luz Studies done: 01/30/25 MR of Lumbar at [facility] Xray of Lumbar Spine at [facility] Surgeries: Back Surgery 05/21/1992, Conservative Treatments (Have you ever tried any in the past) Physical Therapy in the last 6 months to a year: No NSAID's: Yes Narcotics: No Muscle relaxants: No Epidural injections: Yes epidural spinal injection By. Dr. Jonathan Geuvara Any Blood Thinners : [x] Yes [] No [x] Aspirin [] Eliquis [] Xarelto [] Pletal [] Plavix [] Warfarin Diabetic: [] Yes [x] No If yes, prescribed insulin: [] Yes [x] No Do you take any : [] Yes [x] No [] Ozempic [] Wegovy [] Trulicity [] Mounjaro Smoking: [] Yes [x] No REVIEW OF SYSTEMS: [] Rash [] Difficulty Urinating [] Nausea [] Fever [] Headaches [] Bruising/Bleeding Easily [] Hearing loss [] Constipation [] Sleep Disturbance [] Shortness of breath [] Diarrhea [] Neck Pain [x] Back Pain documented in this encounter Plan of Treatment DateTypeDepartmentCare Team (Latest Contact Info)Axhubmrdisz28/23/2025 3:15 PM ESTAppointment [facility] [address] [place] [address] EPIC SCHED/PT03/12/2025 9:00 AM ESTOffice Visit [facility] [address] [address] Sintia Barksdale, NNP - ELECTRICIAN SUPERVISOR [address] [facility] [address] [place] [address] 4 week follow up to reassess pain and review medsNameTypePriorityAssociated DiagnosesOrder ScheduleMRI LUMBAR SPINE W WO CONTRASTImagingRoutine Spinal stenosis of lumbar region with neurogenic claudication Arachnoiditis Expected: 02/12/2025 (Approximate), Expires: 05/12/2025XR LUMBAR SPINE (MIN 4 VIEWS)ImagingRoutine Spinal stenosis of lumbar region with neurogenic claudication Arachnoiditis Expected: 02/11/2025 (Approximate), Expires: 05/12/2025NameTypePriority Associated DiagnosesOrder ScheduleAmbulatory referral to Pain MedicineOutpatient ReferralRoutine Spinal stenosis of lumbar region with neurogenic claudication Arachnoiditis Ordered: 02/11/2025documented as of this encounter Visit Diagnoses Diagnosis Spinal stenosis of lumbar region with neurogenic claudication- Primary Spinal stenosis, lumbar region, with neurogenic claudication Arachnoiditis Meningitis, unspecified documented in this encounter Care Teams Team MemberRelationshipSpecialtyStart DateEnd Date Nitesh Garcia PA-C [address] [place] [address] PCP - GeneralNeurological Iiiuzxy89/5/25documented as of this encounter
--- OUTSIDE RECORDS SUMMARY | 2025-02-12 14:30 | XMS_ITS | Encounter Summary ---
Author Organization [facility] 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 Role Phone Nitesh Garcia PA-C Primary Care Provider [phone] Reason for Visit * ReasonCommentsConsultationLeg PainBILATERAL * Eval and Treat (Routine) - Pending ReviewSpecialtyDiagnoses / Procedures Referred By ContactReferred To ContactNdin Medicine / Pain Management Diagnoses Spinal stenosis of lumbar region with neurogenic claudication Arachnoiditis Nitesh Garcia PA-C [address] [facility] [address] [place] [address] Phone: tel: fax: Loren Dolan MD [address] [facility] [address] [place] [address] Phone: tel: fax: Referral IDStatusReasonStart DateExpiration DateVisits RequestedVisits [id number] Review Specialty Services Required Encounter Details DateTypeDepartmentCare Team (Latest Contact Info)Iadrxnhqvwd62/06/2025 2:30 PM ESTInitial consult [facility] [address] [facility] [address] [place], [place] [id number] Deep Mendez DO [address] [place], [place] [id number] Chronic pain syndrome (Primary Dx); Lumbar radiculopathy Social History Tobacco UseTypesPacks/DayYears UsedDateSmoking Tobacco: NeverSmokeless Tobacco: NeverAlcohol UseStandard Drinks/WeekCommentsYes0 (1 standard drink = 0.6 oz pure alcohol)35 (1 standard drink = 0.6 oz pure alcohol)Sex and Gender Information ValueDate RecordedSex Assigned at BirthNot on fileLegal RijFmrn1205/19/2012 7:11 PM ESTGender IdentityNot on fileSexual OrientationNot on filedocumented as of this encounter Last Filed Vital Signs Vital SignReadingTime TakenCommentsBlood Pressure--Ozfyd059402/12/2025 2:26 PM EST Dgixhbsssfy92.2 ??C (97.2 ??F)02/12/2025 2:26 PM ESTRespiratory Rate--Oxygen Hhyttjfcxh85%02/12/2025 2:26 PM ESTInhaled Oxygen Concentration--Udxdjc30.7 kg (211 lb)02/12/2025 2:26 PM GTMGskaqh347.1 cm (5' 10.5 )02/12/2025 2:26 PM EST Body Mass Index29.8502/12/2025 2:26 PM ESTdocumented in this encounter Progress Notes * Deep Mendez, - 02/12/2025 2:33 PM EST Images from the original note were not included. [facility] P: F: César Steven (1960) 02/12/2025 Subjective: César Steven is 64 y.o. male who complains today of: Chief Complaint Patient presents with Consultation Leg Pain BILATERAL Patient here today for initial evaluation. I reviewed Dr. Patel notes. Patient had some sort of injection perhaps caudal epidural [address] Samano had a lot of pain diagnosed with arachnoiditis from Dr. Patel. Patient has Diffley standing walking pain down the right leg numbness he says alcohol helps his pain. 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 Remote history in the 90s of decompression. No comfort position he does not smoke pains been going on for 5 months he is not on blood thinners not diabetic. OARRS was reviewed. Dr. Patel is ordering more imaging to evaluate further if there is any options for him surgically to rule out a mass and also further assess the area arachno iditis. Assessment: Chronic pain syndrome, lumbar stenosis history of low back surgery arachnoiditis Plan: We discussed options. OARRS is reviewed narcotics not indicated at this point. Interventionalpain management not indicated either due to arachnoiditis. Will give him gabapentin 3 times a day start at night 3 mg follow-up in 1 month with nurse practitioner options limited. Questions answered chart was reviewed he will also follow-up with Dr. Patel after the above testing is completed. Allergies: Prednisone No past medical history on file. No past surgical history on file. No family history on file. Social History Socioeconomic History Marital status: Unknown Spouse name: Not on file Number of children: Not on file Years of education: Not on file Highest education level: Not on file Occupational History Not on file Tobacco Use Smoking status: Never Smokeless tobacco: Never Substance and Sexual Activity Alcohol use: Yes Comment: 35 (1 standard drink = 0.6 oz pure alcohol) Drug use: Never Sexual activity: Not on file Other Topics Concern Not on file Social History Narrative Not on file Social Drivers of Health Financial Resource Strain: Not on file Food Insecurity: No Food Insecurity (06/04/2023) Received from [facility] Hunger Screening Within the past 12 months we worried whether our food would run out before we got money to buy more.: Never True Within the past 12 months the food we bought just didn't last and we didn't have money to get more.: Never True Transportation Needs: Not on file Physical Activity: Not on file Stress: Not on file Social Connections: Not on file Intimate Partner Violence: Not on file Housing Stability: Not on file Current Outpatient Medications on File Prior to Visit Medication Sig Dispense Refill allopurinol (ZYLOPRIM) 100 MG tablet Take 2 tablets by mouth ALPRAZolam (XANAX) 0.5 MG tablet 1 tablet. aspirin 81 MG EC tablet Take 1 tablet by mouth daily celecoxib (CELEBREX) 200 MG capsule Take 1 capsule by mouth 2 times daily dofetilide (TIKOSYN) 125 MCG capsule Take 1 capsule by mouth vitamin D (ERGOCALCIFEROL) 1.25 MG (91464 UT) CAPS capsule (take by mouth with food twice a week, ONE CAPSULE ON SUNDAY AND ONE ON SUNDAY) FOR A TOTAL OF 10 WEEKS. Then once a week thereafter levothyroxine (SYNTHROID) 200 MCG tablet Take 1 tablet by mouth daily magnesium oxide (MAG-OX) 400 MG tablet 1 tablet daily spironolactone-hydroCHLOROthiazide (ALDACTAZIDE) 25-25 MG per tablet Take 1 tablet by mouth every morning valsartan (DIOVAN) 40 MG tablet Take 1 tablet by mouth daily No current facility-administered medications on file prior to visit. HPI Review of Systems All other systems reviewed and are negative. Objective: Vitals: Pulse 83 Temp 97.2 ??F (36.2 ??C) (Temporal) Ht 1.791 m (5' 10.5 ) Wt 95.7 kg (211 lb) IpM409% BMI 29.85 kg/m?? Pain Score: 10 - Worst pain ever Physical Exam Assessment: Plan: documented in this encounter Plan of Treatment DateTypeDepartmentCare Team (Latest Contact Info)Ycbsjrptxqb48/23/2025 3:[address] [facility] [address] [place] [address] EPIC SCHED/PT03/12/2025 9:00 AM ESTOffice Visit [facility] [address] [facility] [address] [place] [address] Sintia Barksdale, CONSUMER INSIGHTS SPECIALIST - TRANSMISSION INSPECTOR [address] [facility] [address] [place] [address] 4 week follow up to reassess pain and review medsdocumented as of this encounter Visit Diagnoses Diagnosis Chronic pain syndrome- Primary Lumbar radiculopathy Thoracic or lumbosacral neuritis or radiculitis, unspecified documented in this encounter Additional Health Concerns AssessmentNoted TimeA fall risk assessment has been completed for the patient 02/12/2025 2:30 PM ESTdocumented as of this encounter Care Teams Team MemberRelationshipSpecialtyStart DateEnd Date Nitesh Garcia PA-C [address] [place] [phone] PCP - GeneralNeurological Frckrti12/5/25documented as of this encounter
--- OUTSIDE RECORDS SUMMARY | 2025-02-17 14:42 | XMS_ITS | Clinical Summary ---
Author Organization [place] [facility] Address [id number] [address] [place] [address] Care Team Providers Care Third Hand Name Role Phone Coleman Luz Primary Care Provider [phone] Allergies Active AllergyReactionsCriticalityNoted DateCommentsNo Known Drug AllergiesOther (See Comments)10/05/2016 Medications MedicationSigDispense QuantityRefillsLast FilledStart DateEnd DateStatus levothyroxine (SYNTHROID, LEVOTHROID) 200 MCG tablet Take 1 tablet (200 mcg total) by mouth in the morning.Active aspirin 81 mg Take 1 tablet (81 mg total) by mouth in the morning.Active ALPRAZolam (XANAX) 0.25 mg tablet Take 1 tablet (0.25 mg total) by mouth nightly.Active metoprolol succinate XL (TOPROL-XL) 50 mg 24 hr tablet Take 1 tablet (50 mg total) by mouth daily. 90 tablet 02/09/2021ctive allopurinoL (ZYLOPRIM) 100 mg tablet Take 1 tablet (100 mg total) by mouth in the morning.07/23/2021ctive valACYclovir (VALTREX) 500 mg tablet 10/17/2021ctive escitalopram (LEXAPRO) 10 mg tablet Take 1 tablet (10 mg total) by mouth in the morning.12/05/2022ctive ELIQUIS 5 mg tablet Take 1 tablet (5 mg total) by mouth in the morning and 1 tablet (5 mg total) before bedtime.02/09/2024Active celecoxib (CeleBREX) 200 mg capsule Take 1 capsule (200 mg total) by mouth in the morning.Active magnesium oxide (MAGOX) 400 mg tablet Indications:HypomagnesemiaTake 1 tablet (400 mg total) by mouth in the morning and 1 tablet (400 mg total) before bedtime. 180 tablet 4Active spironolacton-hydroCHLOROthiaz (ALDACTAZIDE) 25-25 mg per tablet TAKE 1 TABLET BY MOUTH EVERY DAY IN THE MORNING 90 tablet ctive Active Problems ProblemNoted DateDiagnosed DateAtrial /26/2024oronary artery disease involving salamatof coronary artery of salamatof heart without angina pectoris 10/20/2021evere obesity (BMI 35.0-39.9) with rxgufaweuui77/01/2022izziness 08/08/2019Atherosclerosis of autologous vein coronary artery bypass graft 11/13/2014Vertebrobasilar circulation transient ischemic doggip7503/26/2007 HypertensionNonrheumatic mitral (valve) insufficiencyHyperlipidemiaOther transient cerebral ischemic attacks and related syndromesObstructive sleep apnea Resolved Problems ProblemNoted DateDiagnosed DateResolved DateAbnormal stress test01/26/2020 06/04/2023 Overview (01/26/2020): Added automatically from request for surgery [id number] Abnormal nuclear stress testMitral stenosis with wsjevhfufiacj80therosclerosis of autologous vein coronary artery bypass graft with angina jeluvtmk90/14/2022Heart hrftime0610/20/2021 Family History Medical HistoryRelationNameCommentsStrokeMotherRelationNameStatusCommentsFather DeceasedMotherAlive Social History Tobacco UseTypesPacks/DayYears UsedDateSmoking Tobacco: NeverSmokeless Tobacco: Never Tobacco Cessation:Counseling Given: Not Answered Alcohol UseStandard Drinks/WeekCommentsYes0 (1 standard drink = 0.6 oz pure alcohol)ChildcareAnswerDate SpbthxdvKcnjbpgcnOwjjxyc81/12/2019EmploymentAnswer Date MzabcqjsWjkktdgpbeBkrzshq55/12/2019Hunger ScreeningAnswerDate Recorded Within the past 12 months we worried whether our food would run out before we got money to buy more.Never True06/04/2023Within the past 12 months the food we bought just didn't last and we didn't have money to get more.Never True 06/04/2023urpose - LifeAnswerDate RecordedPurpose and direction in lifeUnknown 05/20/2020ex and Gender InformationValueDate RecordedSex Assigned at BirthNot on fileLegal RqcZfbw0911/12/2014 11:34 AM EDTGender IdentityNot on fileSexual OrientationNot on file Last Filed Vital Signs Vital SignReadingTime TakenCommentsBlood Tzonxrek095/80006/04/2023 2:08 PM EST Tmxod616706/04/2023 2:08 PM QIVJgspxrqmzth37 ??C (98.6 ??F)02/03/2020 7:34 AM EDT Respiratory Ubwl938604/18/2023 1:30 PM ESTOxygen Kyxczauihx93%06/04/2023 2:08 PM ESTInhaled Oxygen Concentration--Ibzgcl453 kg (238 lb)06/04/2023 2:08 PM EST Ypjeec172.8 cm (5' 10 )06/04/2023 2:08 PM ESTBody Mass Index34.15006/04/2023 2:08 PM EST Plan of Treatment Health MaintenanceDue DateLast DoneCommentsStatin Use: Ltmqgcdodkmtla77/09/1960 Depression Hslhxujyq32/09/1972Zoster (Shingles) Vaccine (1 of 2)12/16/2009dult BMI Wkuwdmbpf78Tobacco Zzjyahacc75OVID-19 Vaccine ( - season)/06/2021, 06/25/2020, 06/04/2020 Influenza Vxwuhzv99/, 01/18/2021, 01/13/2020, Additional history existsFall Risk Gxkmxzraw26/09/2025DTaP,Tdap and Td Vaccines (2 - Tdap) /1RSV ( or age 60+ yrs) (1 - 1-dose 75+ series) 12/16/2034 Medical Devices Not on file Insurance Care Teams Team MemberRelationshipSpecialtyStart DateEnd Date Coleman Luz DO [address] [place] [address] PCP - Hhjotxo70/2/18
--- OUTSIDE RECORDS SUMMARY | 2025-02-17 14:42 | XMS_ITS | Clinical Summary ---
Author Organization [facility] Address [address] [place] [address] Care Team Providers Care Raw Cheese Worker Name Role Phone Coleman Luz Primary Care Provider [phone] Allergies Active AllergyReactionsCriticalityNoted DateCommentsPrednisoneHeadache,Other 07/27/2023 Other Reaction(s): Agitated, HEADACHES Light sensitivity Medications MedicationSigDispense QuantityRefillsLast FilledStart DateEnd DateStatus irbesartan (Avapro) 150 MG tablet 01/04/2023ctive celecoxib (CeleBREX) 200 MG capsule Take 1 capsule by mouth in the morning.01/04/2023ctive valACYclovir (Valtrex) 500 MG tablet Take 1 tablet by mouth in the morning.06/29/2023ctive aspirin 81 MG EC tablet 1 (one) time each day at the same timeActive levothyroxine (Synthroid, Levoxyl) 150 MCG tablet Take 150 mcg by mouth in the morning. Take before meals.12/29/2022ctive triamterene-hydroCHLOROthiazide (Dyazide) 37.5-25 MG capsule TAKE 1 CAPSULE BY MOUTH EVERY DAY IN THE MORNING FOR 30 DAYS12/09/2022ctive allopurinol (Zyloprim) 100 MG tablet Take 100 mg by mouth in the morning.12/29/2022ctive metoprolol succinate XL (Toprol-XL) 50 MG 24 hr tablet Take 50 mg by mouth in the morning.12/29/2022ctive atorvastatin (Lipitor) 80 MG tablet Take 80 mg by mouth in the morning.01/04/2023ctive ALPRAZolam (Xanax) 0.5 MG tablet TAKE 1 TABLET BY MOUTH EVERY DAY AT BEDTIME FOR 30 DAYSActive escitalopram (Lexapro) 10 MG tablet Take 10 mg by mouth in the morning.12/05/2022ctive Rivaroxaban (XARELTO PO) Take by mouthActive Active Problems ProblemNoted DateDiagnosed DateOSA (obstructive sleep apnea)09/19/2023 Eomeabmwlyw96/12/8972Aahltps39/12/2024aytime zuwzzfayragifjz45/12/2024Snoring 09/19/2023trial hceytnrvxwao46/12/6744Xbkxgobwix10/12/2024oronary artery disease (CAD) zygpgpdj39/12/1790Mxbgqdyb07/12/6992Wnrlhjkomtvk68/12/2024 Family History Medical HistoryRelationNameCommentsNephrolithiasisMotherStrokeMotherpacemaker MotherRelationNameStatusCommentsFatherDeceasedMotherDeceased Social History Tobacco UseTypesPacks/DayYears UsedDateSmoking Tobacco: NeverSmokeless Tobacco: Never Tobacco Cessation:Counseling Given: Not Answered Sex and Gender InformationValueDate RecordedSex Assigned at BirthNot on file Legal WgvAryu7206/21/2022 6:57 PM EDTGender IdentityNot on fileSexual Orientation Not on file Last Filed Vital Signs Vital SignReadingTime TakenCommentsBlood Wbzgajll528/8209/19/2023 10:17 AM EDT Begrm427309/19/2023 10:17 AM EDTTemperature--Respiratory Rate--Oxygen Saturation-- Inhaled Oxygen Concentration--Xrqijt690 kg (243 lb)09/19/2023 10:17 AM EDTHeight 177.8 cm (5' 10 )09/19/2023 10:17 AM EDTBody Mass Index34.8709/19/2023 10:17 AM EDT Plan of Treatment Not on file Insurance Care Teams Team MemberRelationshipSpecialtyStart DateEnd Date Coleman Luz DO PCP - GeneralInternal Medicine09/19/23
--- OUTSIDE RECORDS SUMMARY | 2025-02-17 14:43 | XMS_ITS | Clinical Summary ---
Author Organization [facility] Address [address], [address] [place] [address] Care Team Providers Care Offset Plate Preparation Supervisor Name Role Phone Nitesh Garcia PA-C Primary Care Provider [phone] Allergies Active AllergyReactionsCriticalityNoted DateCommentsPrednisoneHeadaches,Other (See Comments)Low07/27/2023 Other Reaction(s): Agitated, HEADACHES Light sensitivity Light sensitivity. Able to tolerate medrol Medications MedicationSigDispense QuantityRefillsLast FilledStart DateEnd DateStatus allopurinol (ZYLOPRIM) 100 MG tablet Take 2 tablets by mouth5Active ALPRAZolam (XANAX) 0.5 MG tablet 1 tablet.Active aspirin 81 MG EC tablet Take 1 tablet by mouth dailyActive celecoxib (CELEBREX) 200 MG capsule Take 1 capsule by mouth 2 times daily5Active dofetilide (TIKOSYN) 125 MCG capsule Take 1 capsule by mouth5Active vitamin D (ERGOCALCIFEROL) 1.25 MG (98106 UT) CAPS capsule (take by mouth with food twice a week, ONE CAPSULE ON SUNDAY AND ONE ON SUNDAY) FOR A TOTAL OF 10WEEKS. Then once a week rmohuqzqhv00/31/2025Active levothyroxine (SYNTHROID) 200 MCG tablet Take 1 tablet by mouth dailyActive magnesium oxide (MAG-OX) 400 MG tablet 1 tablet dailyActive spironolactone-hydroCHLOROthiazide (ALDACTAZIDE) 25-25 MG per tablet Take 1 tablet by mouth every tdjkehu62/31/2024Active valsartan (DIOVAN) 40 MG tablet Take 1 tablet by mouth daily/6Active gabapentin (NEURONTIN) 300 MG capsule Take 1 capsule by mouth 3 times daily as needed (start at night) for up to 30 days. Intended supply: 30 days 90 capsule 515Active Active Problems No known active problems Encounters DateTypeDepartmentCare AthjHukarirgejy65/06/2025 2:30 PM ESTInitial consult [facility] [address] [place] [address] [address] [place] [address] Deep Mendez DO Chronic pain syndrome (Primary Dx); Lumbar jslxtnanmyzdn26/05/2025 10:00 AM ESTOffice Visit [facility] [address] [place] [address] [address] [place] [address] Austen Patel MD Spinal stenosis of lumbar region with neurogenic claudication (Primary Dx); Arachnoiditisfrom Last 3 Months Social History Tobacco UseTypesPacks/DayYears UsedDateSmoking Tobacco: NeverSmokeless Tobacco: NeverAlcohol UseStandard Drinks/WeekCommentsYes0 (1 standard drink = 0.6 oz pure alcohol)35 (1 standard drink = 0.6 oz pure alcohol)Sex and Gender Information ValueDate RecordedSex Assigned at BirthNot on fileLegal YsxEoev0505/19/2012 7:11 PM ESTGender IdentityNot on fileSexual OrientationNot on file Last Filed Vital Signs Vital SignReadingTime TakenCommentsBlood Pressure--Tpldb285102/12/2025 2:26 PM EST Upywabsctrk84.2 ??C (97.2 ??F)02/12/2025 2:26 PM ESTRespiratory Utuy925104/13/2024 9:56 AM ESTOxygen Lzjyzngolb00%02/12/2025 2:26 PM ESTInhaled Oxygen Concentration--Vhiujs92.7 kg (211 lb)02/12/2025 2:26 PM JXGFiyidd093.1 cm (5' 10.5 )02/12/2025 2:26 PM ESTBody Mass Index29.8502/12/2025 2:26 PM EST Plan of Treatment DateTypeDepartmentCare Team (Latest Contact Info)Btcpvagolmh65/23/2025 3:15 PM ESTAppointment [facility] [address] [place] [address] EPIC SCHED/PT03/12/2025 9:00 AM ESTOffice Visit [facility] [address] [place] [address] Sintia Barksdale, FUEL CELL REPAIRER - INSURANCE ADJUSTOR [address] [place] [address] 4 week follow up to reassess pain and review medsHealth MaintenanceDue DateLast DoneCommentsDepression Phfzws5412/17/1971HIV wxmkfs6312/16/1974Hepatitis C screen 12/16/1977Diabetes qvslnx7012/16/19943712Ussvlx33/09/4158Utfqstzjjdg00/09/2005 Colorectal Cancer Ddzqut0512/16/2004FIT/FOBT: Average risk12/16/2004Fecal-DNA (Cologuard): Average risk12/16/2004Sigmoidoscopy/CT xirvcjeocdyx23/09/2005 Pneumococcal 50+ years Vaccine (1 of 1 - PCV)12/16/2009Shingles vaccine (1 of 2) 12/16/2009Flu vaccine (#1)51, 04/05/2023, 02/06/2022, Additional history existsCOVID-19 Vaccine ( season)2024 04/11/2021, 06/25/2020, 06/04/2020nnual Wellness Visit (Medicare)02/04/2025 DTaP/Tdap/Td vaccine (2 - Tdap)espiratory Syncytial Virus (RSV) or age 60 yrs+ (1 - 1-dose 75+ series)12/16/2034Hepatitis A vaccineAged OutNo longer eligible based on patient's age to complete this topic Hepatitis B vaccineAged OutNo longer eligible based on patient's age to complete this topicHib vaccineAged OutNo longer eligible based on patient's age to complete this topicMeningococcal (ACWY) vaccineAged OutNo longer eligible based on patient's age to complete this topicMeningococcal B vaccineAged OutNo longer eligible based on patient's age to complete this topicPolio vaccineAged OutNo longer eligible based on patient's age to complete this topic Insurance Care Teams Team MemberRelationshipSpecialtyStart DateEnd Nitesh Garcia PA-C [address] [facility] [address] [place] [phone] PCP - GeneralNeurological Mzvonxi06/5/25
--- OUTSIDE RECORDS SUMMARY | 2025-02-17 14:43 | XMS_ITS | Clinical Summary ---
Author Organization [facility] Address [address] [place] [address] Phone Care Team Providers Care Director Industrial Relations Name Role Phone Coleman Luz Primary Care Provider [phone] Allergies Active AllergyReactionsCriticalityNoted DateCommentsPrednisoneOther,HeadacheLow 07/27/2023 Light sensitivity. Able to tolerate medrol Medications MedicationSigDispense QuantityRefillsLast FilledStart DateEnd DateStatus allopurinol (Zyloprim) 100 mg tablet Take 1 tablet (100 mg) by mouth once daily.12/29/2022ctive ALPRAZolam (Xanax) 0.5 mg tablet Take 1 tablet (0.5 mg) by mouth as needed at bedtime for sleep.12/12/2022ctive atorvastatin (Lipitor) 80 mg tablet Take 1 tablet (80 mg) by mouth once daily.01/04/2023ctive aspirin 81 mg EC tablet Take 1 tablet (81 mg) by mouth once daily.Active escitalopram (Lexapro) 20 mg tablet Take 1 tablet (20 mg) by mouth once daily.06/29/2023ctive levothyroxine (Synthroid, Levoxyl) 150 mcg tablet Take 1 tablet (150 mcg) by mouth once daily in the morning. Take before meals. 12/29/2022ctive methylPREDNISolone (Medrol) 4 mg tablet Take 2 tablets (8 mg) by mouth once daily.07/05/2023ctive metoprolol succinate XL (Toprol-XL) 50 mg 24 hr tablet Take 1 tablet (50 mg) by mouth once daily.12/29/2022ctive spironolacton-hydrochlorothiaz (Aldactazide) 25-25 mg tablet Take 1 tablet (25 mg) by mouth once daily in the morning. Take before meals. 01/02/2023ctive valACYclovir (Valtrex) 500 mg tablet Take 1 tablet (500 mg) by mouth once daily.10/17/2021ctive valsartan (Diovan) 40 mg tablet Indications:Cardiomyopathy, ischemicTake 1 tablet (40 mg) by mouth once daily. 90 tablet /ctive dofetilide (Tikosyn) 125 mcg capsule Take 1 capsule (125 mcg) by mouth every 12 hours.12/12/2024tive magnesium oxide (Mag-Ox) 400 mg tablet 1 tablet (400 mg) once daily.Active Active Problems ProblemNoted DateDiagnosed DateObesity (BMI 30-39.9)11/19/2024Dilated aortic root01/30/2024resence of Watchman left atrial appendage closure device 01/28/2024Never smoked ngqojmquwe73/11/2024Multi-vessel coronary artery stenosis 07/27/2023ardiomyopathy, stsymlcx73/19/2024Mixed lqpypcurjeyhoc20/19/2024Status post aorto-coronary artery bypass graft07/27/2023ersistent atrial fibrillation 07/27/2023 Resolved Problems ProblemNoted DateDiagnosed DateResolved DateAtrial fibrillation, unspecified type/trial qstdkqlnxuck45/19/202411/aroxysmal atrial zrazhsqzithh35/19/202404/MI 32.0-32.9,adult/ Encounters DateTypeDepartmentCare BgctTnmuxgjcpgw21/24/2025 6:25 AM EDTClinical Support [facility] [address] [place] [address] 01/30/2025 2:25 AM EDTClinical Support [facility] [address] [place] [address] 01/30/2025 1:32 AM EDT - 01/30/2025 9:30 AM EDTEmergency [facility] [address] [place] [address] Diogo Macias MD Lareau, Aaron D, MD Right leg weakness (Primary Dx) Discharge Disposition: Home01/30/20254268Ntfxzl72/15/2025 11:[address] [place] [address] Daisy Mora MD Status post aorto-coronary artery bypass graft (Primary Dx); Multi-vessel coronary artery stenosis; Presence of Watchman left atrial appendage closure device; Persistent atrial fibrillation (Multi); Mixed hyperlipidemia; Dilated aortic root; Cardiomyopathy, ischemic; Never smoked cigarettes; Obesity (BMI 30-39.9) Discharge Disposition: Home12/22/20243142Pwbwzl22/10/2025Scanned Document [facility] [address] [place] [address] Scanning, Generic Provider 12/15/2024 3:00 PM EDTAncillary Procedure [address] [place] [address] Keila Garcia CMA Discharge Disposition: Home12/15/20245060Qaiays79/05/2025Scanned Document [facility] [address] [place] [address] Scanning, Generic Provider 12/12/2024Telephone [address] [place] [address] Mary Ann Miller RN 12/09/2024Scanned Document [facility] [address] [place] [address] Scanning, Generic Provider 12/03/2024Orders Only [address] [place] [address] Daisy Mora MD Multi-vessel coronary artery stenosis; Cardiomyopathy, ceivpkwn96/21/2025Telephone [facility] [address] [facility] [address] [place] [address] Daisy Mora MD 11/26/2024Telephone [facility] [address] [facility] [address] [place] [address] Daisy Mora MD 11/20/2024Telephone [facility] [address] [facility] [address] [place] [address] Daisy Mora MD 11/19/2024 12:50 PM EDTOffice Visit [facility] [address] [facility] [address] [place] [address] Daisy Mora MD Persistent atrial fibrillation (Multi) (Primary Dx); Multi-vessel coronary artery stenosis; Status post aorto-coronary artery bypass graft; Presence of Watchman left atrial appendage closure device; Mixed hyperlipidemia; Dilated aortic root; Cardiomyopathy, ischemic; Never smoked cigarettes; BMI 32.0-32.9,adult Discharge Disposition: Home11/19/2024Travelfrom Last 3 Months Immunizations ImmunizationAdministration DatesNext DueDTaP, Rffkeifftes23/05/2021Flu vaccine (IIV4), preservative free *Check age/dose*04/05/2023Influenza, Split (incl. purified surface antigen)02/06/2022,01/13/2020,01/02/2019Influenza, injectable, MDCK, hotbzsqrqcta87/15/2018Influenza, seasonal, yqfinfagug25/19/2024Influenza, trivalent, uulqcvkbcm15/12/2021Pfizer Purple Cap ANQV-DkC-749/09/2021 Family History Medical HistoryRelationNameCommentsNo Known ProblemsFatherNo Known Problems MotherRelationNameStatusCommentsFatherDeceasedMotherDeceased Social History Tobacco UseTypesPacks/DayYears UsedDateSmoking Tobacco: NeverSmokeless Tobacco: Never Tobacco Cessation:Counseling Given: Not Answered Alcohol UseStandard Drinks/InofTmmordapSei12 (1 standard drink = 0.6 oz pure alcohol)PHQ-2AnswerDate RecordedPatient Health Questionnaire-2 Tkbmn095 Sex and Gender InformationValueDate RecordedSex Assigned at BirthNot on file Legal CpfStwb7307/09/2023 9:17 AM EDTGender IdentityNot on fileSexual Orientation Not on file Last Filed Vital Signs Vital SignReadingTime TakenCommentsBlood Jaohhzom280/7310 8:08 AM EDT Aoifk101001/30/2025 8:08 AM EMPOadyyojskyr99.7 ??C (98 ??F)01/30/2025 2:15 AM EDT Respiratory Bkin4718 8:08 AM EDTOxygen Qajrjynjmn12%01/30/2025 8:08 AM EDTInhaled Oxygen Concentration--Vuhlxc41.2 kg (212 lb)01/30/2025 1:41 AM EDT Wnriei051.8 cm (5' 10 )01/30/2025 1:41 AM EDTBody Mass Index30.421 1:41 AM EDT Plan of Treatment DateTypeDepartmentCare Team (Latest Contact Info)Rxhqigtvazu27/25/2025 8:30 AM ESTOffice Visit [facility] 960 [facility] [address] [phone] Corey Campos MD [facility] [address] [facility] [address] [place] [address] 08/18/2025 3:20 PM EDTOffice Visit [facility] 7[address] [facility] [address] [place] [address] Daisy Mora MD [address]03 [facility] [address] [place] [address] Health MaintenanceDue DateLast DoneCommentsCT Qkndukbygkei27/09/1960FIT-DNA (Cologuard)1959FIT1959Lipid Panel1959 7603Sxfdefkmijsjv27/09/1960 TSH Level09/09/1960MMR Vaccines (1 of 1 - Standard series)12/16/1960Hepatitis C Jijktgjyu19/09/1978Hepatitis A Vaccines (1 of 2 - Risk 2-dose series)12/16/1978 Pneumococcal Vaccine (1 of 2 - PCV)12/16/1978PSA Prostate Cancer Screening 12/16/2009RSV High Risk: (Elderly (60+) or Population) (1 - Risk 50-74 years 1-dose series)12/16/2009Zoster Vaccines (1 of 2)12/16/2009Hepatitis B Vaccines (1 of 3 - Risk 3-dose series)2019Influenza Vaccine (#1)2024 01/26/2024, 04/05/2023, 02/06/2022, Additional history existsMedicare Annual Wellness Visit (AWV)/4COVID-19 Vaccine (2 - season) 503/7233Tbyqldyqqvibyi95/05/426592/08/2024, 01/29/2024, 01/29/2024, Additional history existsCreatinine Level/, 01/29/2024 Diabetes Tqwfxdudb12, 4Potassium Level01/30/2026 01/30/2025, 4DTaP/Tdap/Td Vaccines (2 - Tdap)102/08/2020 Umutoxddoxb31/23//4Colorectal Cancer Jacdigvvf90/23/2034Bone Density YrpqPbajqnybbnbj35/21/2024, 06/28/2023, 06/28/2023Welcome to Medicare Visit Lyfjlxgsvyka56/12/2024HIB VaccinesAged OutNo longer eligible based on patient's age to complete this topicHPV VaccinesAged OutNo longer eligible based on patient's age to complete this topicIPV VaccinesAged OutNo longer eligible based on patient's age to complete this topicMeningococcal VaccineAged OutNo longer eligible based on patient's age to complete this topicRotavirus VaccinesAged Out No longer eligible based on patient's age to complete this topic Medical Devices ImplantedTypeAreaManufacturerDevice IdentifierShelf Expiration DateModel / Serial / LotJoint HipJoint HipBilateral: HipJoint KneeJoint KneeBilateral: Knee Device, Closure, 27mm Watchman Flx Pro Laac - [id number] Implanted:Qty: 1 on 01/29/2024 by Jasper [facility]alski [facility]Other Cardiac ImplantN/A: [employer] [id number] 09/18/[id number] / / [id number] Procedures Procedure NamePriorityDate/TimeAssociated DiagnosisCommentsECG 12-LEADRoutine 01/30/2025 6:23 AM EDT MR INTERPRETATION OF OUTSIDE YYJLMIDOR19/24/2025 5:05 AM EDT PROTIME-ELLVLQP2201/30/2025 3:41 AM EDT ECG 12-MJCQZIVW30/24/2025 2:21 AM EDT TYPE AND QVSTQOFZUS87/24/2025 2:16 AM EDT COMPREHENSIVE METABOLIC RBQWCAKBE10/24/2025 2:16 AM EDT CBC WITH AUTO COKTHKSNYJTIEPDO59/24/2025 2:16 AM EDT ECG 12-LZXUVmhnojy42/15/2025 11:30 AM EDT Persistent atrial fibrillation (Multi) ECG 12-UGPNVdmdtio31/08/2025 2:38 PM EDT History of cardioversion Abnormal electrocardiogram (ECG) (EKG) Persistent atrial fibrillation (Multi) ECG 12-TFICVqenmop86/13/2025 12:50 PM EDT Persistent atrial fibrillation (Multi) LNFKPVAFHLIFGF81/05/2025 from Last 3 Months or Most Recently Relevant to Health Maintenance Results * ECG 12 lead (01/30/2025 6:23 AM EDT) Only the most recent of5 resultswithin the time period is included. ComponentValueRef RangeTest MethodAnalysis TimePerformed AtPathologist Signature Ventricular Ylgn21YDMUWSWQDV Scztbvkt429qcHZLYVE Ejzbuuox381ifLTYMRRG Calculation(Bazett)464msMUSER Zjsr91nvykbmgDOQWL [place]-16degreesMUSEQRS Count13 beatsMUSEQ Kzxwj257zjZYZQM Chpwqs006gtHPCKUGP Wdwbvotyap236toKHCTQywdiurl (Source)Anatomical Location / LateralityCollection Method / VolumeCollection TimeReceived Time01/30/2025 6:33 AM EDT1 7:48 PM EDT Narrative MUSE - 01/30/2025 7:48 PM EDT Atrial fibrillation with a competing junctional pacemaker Nonspecific T wave abnormality Abnormal ECG When compared with ECG of 30-JAN-2025 02:19, Criteria for Inferior infarct are no longer Present See ED provider note for full interpretation and clinical correlation Confirmed by Savana Meza ([id number]) on 01/30/2025 7:48:49 PM Procedure Note Savana Meza PA-C - 01/30/2025 Atrial fibrillation with a competing junctional pacemaker Nonspecific T wave abnormality Abnormal ECG When compared with ECG of 30-JAN-2025 02:19, Criteria for Inferior infarct are no longer Present See ED provider note for full interpretation and clinical correlation Confirmed by Savana Meza ([id number]) on 01/30/2025 7:48:49 PM Authorizing ProviderResult TypeResult StatusAdam Colleen DECKERG ORDERABLESFinal ResultPerforming OrganizationAddressCity/State/ZIP CodePhone Number MUSE * MR interpretation of outside films (01/30/2025 5:05 AM EDT)Anatomical Region LateralityModalityComputed RadiographySpecimen (Source)Anatomical Location / LateralityCollection Method / VolumeCollection TimeReceived Time01/30/2025 9:55 AM EDT1 9:55 AM EDT Impressions 01/30/2025 9:54 AM EDT Spinal canal stenosis worst between L1-2 and L3-4 as above described with an abnormal appearance of the cauda equina in this region with partial effacement of CSF due to degenerative changes and clumping and perhaps thickening of nerve roots as well as potential loculation of fluid, findings raising the possibility of arachnoiditis for instance. Please correlate clinically and consider comparison to prior outside institution evaluations if clinically indicated and consider further evaluation for instance with postcontrast imaging and/or follow-up thin section high-resolution 3D MRI of the lumbar spine with contrast for clarification if clinically necessary. ?? MACRO: None ?? Signed by: Nilson Mendez 01/30/2025 9:54 AM Dictation workstation: ?? [id number] Narrative 01/30/2025 9:54 AM EDT Interpreted By: Nilson Mendez, STUDY: MR INTERPRETATION OF OUTSIDE FILMS; ; ??01/30/2025 5:05 am ?? INDICATION: Signs/Symptoms:Interpretation of outside film. ??2nd opinion requested by the referring physician. Right lower extremity pain and weakness after epidural injection. ? COMPARISON: No prior cross-sectional evaluation of the lumbar spine is available at this institution at this time. ?? ACCESSION NUMBER(S): [id number] ?? ORDERING CLINICIAN: DIOGO MACIAS ?? TECHNIQUE: Outside institution MRI of the lumbar spine from 01/27/2025 with sagittal T1, T2 stir axial T1 and T2 images through the lumbar spine without intravenous contrast. ?? FINDINGS: Evaluation is limited due to lack of intravenous contrast. ?? For the purposes of this report we will assume 5 non rib-bearing lumbar-type vertebral bodies. There are type 2 Modic discogenic degenerative changes at T12-L1 L1-2 L2-3 L3-4 and L5-S1. There is mild dextroconvex scoliosis of the lumbar spine with apex at L3. Grade 1 anterolisthesis L4 over L5. Subtle anterior wedging T12 without evidence of edema or retropulsion. Postoperative changes status post L5 laminectomy. Conus medullaris terminates appropriately at approximately the L1 level. There is diffuse disc desiccation throughout the lumbar region. There is moderate loss of intervertebral disc space height throughout the lumbar region relatively sparing L4-5. ?? There is an abnormal appearance of the cauda equina from L1 through at least L3-4 with subtle thickening of nerve roots of the cauda equina distal to L3-4 not excluded. There may be clumping of nerve roots or loculation of fluid rather than a mass or masslike process in the spinal canal at the L3 level for instance on image 19 series 5. ?? L1-2: There is moderate excess soft tissue along the right ventral spinal canal at the L1 level measuring up to 5 mm anterior-posterior and approximately 14 mm transverse of uncertain clinical significance perhaps due to disc extrusion moderately indenting the ventral thecal sac more to the right of midline. In addition, there are prominent posterior endplate osteophytes at the L1-2 level contributing to spinal canal stenosis. There does appear to be partial effacement of CSF at this level with likely compression of traversing nerve roots including the traversing L2 nerve roots. ?? L2-3: Moderate disc osteophyte complex indents the ventral thecal sac and minimally to moderately narrows the neuroforamina and subarticular zones in combination with hypertrophic facet change and ligamentum flavum hypertrophy with potential compression of traversing nerve roots including the traversing L3 nerve roots. Disc material does appear to extend approximately 6 mm caudal to the intervertebral disc space. ?? L3-4: Disc osteophyte complex indents the ventral thecal sac and moderately narrows the neuroforamina and subarticular zones in combination with hypertrophic facet change and ligamentum flavum hypertrophy. The neuroforamina are minimally to moderately narrowed due to hypertrophic facet changes and posterior endplate osteophytes as well as disc bulge. There may be compression of traversing nerve roots including the traversing left L4 nerve root at this level. ?? L4-5: Disc bulge/pseudobulge minimally indents the ventral thecal sac and combines with hypertrophic facet changes to moderately narrow the right and minimally narrow the left subarticular zones as well as both neuroforamina with compression of the traversing right L5 nerve root and potential impingement of the exiting L4 nerve roots not excluded. ?? L5-S1: Posterior endplate osteophytes indent the ventral thecal sac and moderately narrow the right neuroforamen in combination with hypertrophic facet changes. ?? Procedure Note Nilson Mendez MD - 01/30/2025 Interpreted By: Nilson Mendez, STUDY: MR INTERPRETATION OF OUTSIDE FILMS; ; 01/30/2025 5:05 am INDICATION: Signs/Symptoms:Interpretation of outside film. 2nd opinion requested by the referring physician. Right lower extremity pain and weakness after epidural injection. COMPARISON: No prior cross-sectional evaluation of the lumbar spine is available at this institution at this time. ACCESSION NUMBER(S): [id number] ORDERING CLINICIAN: DIOGO MACIAS TECHNIQUE: Outside institution MRI of the lumbar spine from 01/27/2025 with sagittal T1, T2 stir axial T1 and T2 images through the lumbar spine without intravenous contrast. FINDINGS: Evaluation is limited due to lack of intravenous contrast. For the purposes of this report we will assume 5 non rib-bearing lumbar-type vertebral bodies. There are type 2 Modic discogenic degenerative changes at T12-L1 L1-2 L2-3 L3-4 and L5-S1. There is mild dextroconvex scoliosis of the lumbar spine with apex at L3. Grade 1 anterolisthesis L4 over L5. Subtle anterior wedging T12 without evidence of edema or retropulsion. Postoperative changes status post L5 laminectomy. Conus medullaris terminates appropriately at approximately the L1 level. There is diffuse disc desiccation throughout the lumbar region. There is moderate loss of intervertebral disc space height throughout the lumbar region relatively sparing L4-5. There is an abnormal appearance of the cauda equina from L1 through at least L3-4 with subtle thickening of nerve roots of the cauda equina distal to L3-4 not excluded. There may be clumping of nerve roots or loculation of fluid rather than a mass or masslike process in the spinal canal at the L3 level for instance on image 19 series 5. L1-2: There is moderate excess soft tissue along the right ventral spinal canal at the L1 level measuring up to 5 mm anterior-posterior and approximately 14 mm transverse of uncertain clinical significance perhaps due to disc extrusion moderately indenting the ventral thecal sac more to the right of midline. In addition, there are prominent posterior endplate osteophytes at the L1-2 level contributing to spinal canal stenosis. There does appear to be partial effacement of CSF at this level with likely compression of traversing nerve roots including the traversing L2 nerve roots. L2-3: Moderate disc osteophyte complex indents the ventral thecal sac and minimally to moderately narrows the neuroforamina and subarticular zones in combination with hypertrophic facet change and ligamentum flavum hypertrophy with potential compression of traversing nerve roots including the traversing L3 nerve roots. Disc material does appear to extend approximately 6 mm caudal to the intervertebral disc space. L3-4: Disc osteophyte complex indents the ventral thecal sac and moderately narrows the neuroforamina and subarticular zones in combination with hypertrophic facet change and ligamentum flavum hypertrophy. The neuroforamina are minimally to moderately narrowed due to hypertrophic facet changes and posterior endplate osteophytes as well as disc bulge. There may be compression of traversing nerve roots including the traversing left L4 nerve root at this level. L4-5: Disc bulge/pseudobulge minimally indents the ventral thecal sac and combines with hypertrophic facet changes to moderately narrow the right and minimally narrow the left subarticular zones as well as both neuroforamina with compression of the traversing right L5 nerve root and potential impingement of the exiting L4 nerve roots not excluded. L5-S1: Posterior endplate osteophytes indent the ventral thecal sac and moderately narrow the right neuroforamen in combination with hypertrophic facet changes. IMPRESSION: Spinal canal stenosis worst between L1-2 and L3-4 as above described with an abnormal appearance of the cauda equina in this region with partial effacement of CSF due to degenerative changes and clumping and perhaps thickening of nerve roots as well as potential loculation of fluid, findings raising the possibility of arachnoiditis for instance. Please correlate clinically and consider comparison to prior outside institution evaluations if clinically indicated and consider further evaluation for instance with postcontrast imaging and/or follow-up thin section high-resolution 3D MRI of the lumbar spine with contrast for clarification if clinically necessary. MACRO: None Signed by: Nilson Mendez 01/30/2025 9:54 AM Dictation workstation: [id number] Authorizing ProviderResult TypeResult StatusAdam Colleen [facility]ED[facility] Final Result * Protime-INR (01/30/2025 3:41 AM EDT)ComponentValueRef RangeTest MethodAnalysis TimePerformed AtPathologist QuxaxvqtlJwhwmqw01.09.8 - 12.4 seconds LAB COAGULATION METHOD 01/30/2025 4:33 AM [facility] LABINR1.00.9 - 1.1 LAB COAGULATION METHOD 01/30/2025 4:33 AM [facility] LABSpecimen (Source)Anatomical Location / Laterality Collection Method / VolumeCollection TimeReceived TimeBloodVenous blood specimen / UnknownVenipuncture / Rympifm3701/30/2025 3:41 AM EDT1 4:05 AM EDT Narrative Authorizing ProviderResult TypeResult StatusFrancdeana Dias MDLAB BLOOD ORDERABLESFinal ResultPerforming OrganizationAddressCity/State/ZIP CodePhone Number [facility] [address] [address] [place] [phone] * (ABNORMAL) CBC and Auto Differential (01/30/2025 2:16 AM EDT)ComponentValueRef RangeTest MethodAnalysis TimePerformed AtPathologist SignatureWBC7.04.4 - 11.3 x10*3/uL LAB HEMATOLOGY METHOD 01/30/2025 3:12 AM [facility] LABnRBC0.00.0 - 0.0 /100 WBCs LAB HEMATOLOGY METHOD 01/30/2025 3:12 AM [facility] LABRBC3.87(L)4.50 - 5.90 x10*6/uL LAB HEMATOLOGY METHOD 01/30/2025 3:12 AM [facility] GEDPginuaatky21.113.5 - 17.5 g/dL LAB HEMATOLOGY METHOD 01/30/2025 3:12 AM [facility] HKVYkpuzsxbdu49.0(L)41.0 - 52.0 % LAB HEMATOLOGY METHOD 01/30/2025 3:12 AM [facility] COMHAQ341(H)80 - 100 fL LAB HEMATOLOGY METHOD 01/30/2025 3:12 AM [facility] PNMPXG52.4(H)26.0 - 34.0 pg LAB HEMATOLOGY METHOD 01/30/2025 3:12 AM [facility] MBJYMOX26.2(H)32.0 - 36.0 g/dL LAB HEMATOLOGY METHOD 01/30/2025 3:12 AM [facility] MEDNBY23.611.5 - 14.5 % LAB HEMATOLOGY METHOD 01/30/2025 3:12 AM [facility] MDEKcquauhfj668(L)150 - 450 x10*3/uL LAB HEMATOLOGY METHOD 01/30/2025 3:12 AM [facility] LABNeutrophils %73.440.0 - 80.0 % LAB HEMATOLOGY METHOD 01/30/2025 3:12 AM [facility] LABImmature Granulocytes %, Automated1.9(H)0.0 - 0.9 % LAB HEMATOLOGY METHOD 01/30/2025 3:12 AM [facility] LABComment:Immature Granulocyte Count (IG) includes promyelocytes, myelocytes and metamyelocytes but does not include bands. Percent differential counts (%) should be interpreted in the context of the absolute c ell counts (cells/UL).Lymphocytes %16.313.0 - 44.0 % LAB HEMATOLOGY METHOD 01/30/2025 3:12 AM [facility] LABMonocytes %7.72.0 - 10.0 % LAB HEMATOLOGY METHOD 01/30/2025 3:12 AM [facility] LABEosinophils %0.40.0 - 6.0 % LAB HEMATOLOGY METHOD 01/30/2025 3:12 AM [facility] LABBasophils %0.30.0 - 2.0 % LAB HEMATOLOGY METHOD 01/30/2025 3:12 AM [facility] LABNeutrophils Absolute5.141.20 - 7.70 x10*3/uL LAB HEMATOLOGY METHOD 01/30/2025 3:12 AM [facility] LABComment:Percent differential counts (%) should be interpreted in the context of the absolute cell counts (cells/uL).Immature Granulocytes Absolute, Automated0.130.00 - 0.70 x10*3/uL LAB HEMATOLOGY METHOD 01/30/2025 3:[facility] LABLymphocytes Absolute1.14(L)1.20 - 4.80 x10*3/uL LAB HEMATOLOGY METHOD 01/30/2025 3:12 AM [facility] LABMonocytes Absolute0.540.10 - 1.00 x10*3/uL LAB HEMATOLOGY METHOD 01/30/2025 3:[facility] LABEosinophils Absolute0.030.00 - 0.70 x10*3/uL LAB HEMATOLOGY METHOD 01/30/2025 3:12 [facility] LABBasophils Absolute0.020.00 - 0.10 x10*3/uL LAB HEMATOLOGY METHOD 01/30/2025 3:12 [facility] LABSpecimen (Source)Anatomical Location / Laterality Collection Method / VolumeCollection TimeReceived TimeBloodVenous blood specimen / UnknownVenipuncture / Tunffye6701/30/2025 2:16 AM EDT1 2:32 AM EDT Narrative Authorizing ProviderResult TypeResult StatusFrkiley Dias MDLAB BLOOD ORDERABLESFinal ResultPerforming OrganizationAddressCity/State/ZIP CodePhone Number [facility] [address] [facility] [address] [place] [id number] * Type And Screen (01/30/2025 2:16 AM EDT)ComponentValueRef RangeTest Method Analysis TimePerformed AtPathologist SignatureABO TYPEA1 5:04 AM EDT [facility] BLOOD BANKRh HPSRMQB4901/30/2025 5:04 AM [facility] BLOOD BANKANTIBODY TADAUCNTA43/24/2025 5:04 [facility] BLOOD BANKSpecimen (Source)Anatomical Location / LateralityCollection Method / VolumeCollection TimeReceived Time BloodVenous blood specimen / UnknownVenipuncture / Eametiw6301/30/2025 2:16 AM EDT1 3:16 AM EDT Narrative Authorizing ProviderResult TypeResult StatusJose A HILARIO BLOOD BANK TEST ORDERABLESFinal ResultPerforming OrganizationAddressCity/State/ZIP Code Phone Number [facility] BLOOD BANK [address] [place] [address] * (ABNORMAL) Comprehensive metabolic panel (01/30/2025 2:16 AM EDT)Component ValueRef RangeTest MethodAnalysis TimePerformed AtPathologist SignatureGlucose 169(H)74 - 99 mg/dL LAB CHEMISTRY METHOD 01/30/2025 3:06 [facility] ZJTWfbquw856104 - 145 mmol/L LAB CHEMISTRY METHOD 01/30/2025 3:06 AM [facility] LABPotassium3.73.5 - 5.3 mmol/L LAB CHEMISTRY METHOD 01/30/2025 3:06 [facility] DADIsxaphwg39591 - 107 mmol/L LAB CHEMISTRY METHOD 01/30/2025 3:06 AM [facility] VDZSuwhxslwiqr7909 - 32 mmol/L LAB CHEMISTRY METHOD 01/30/2025 3:06 AM [facility] LABAnion Plq4402 - 20 mmol/L LAB CHEMISTRY METHOD 01/30/2025 3:06 AM [facility] LABUrea Wcyfoolh856 - 23 mg/dL LAB CHEMISTRY METHOD 01/30/2025 3:06 AM [facility] LABCreatinine0.730.50 - 1.30 mg/dL LAB CHEMISTRY METHOD 01/30/2025 3:06 AM [facility] LABeGFR>90>60 mL/min/1.73m*2 LAB CHEMISTRY METHOD 01/30/2025 3:06 AM [facility] LABComment: Calculations of estimated GFR are performed using the 2020 CKD-EPI Study Refit equation without therace variable for the IDMS-Traceable creatinine methods. https://jasn.asnjournals.org/content//ASN.5785287961 Calcium9.28.6 - 10.6 mg/dL LAB CHEMISTRY METHOD 01/30/2025 3:06 AM [facility] LABAlbumin4.03.4 - 5.0 g/dL LAB CHEMISTRY METHOD 01/30/2025 3:06 AM [facility] LABAlkaline Pjduysiwkcy1377 - 136 U/L LAB CHEMISTRY METHOD 01/30/2025 3:06 AM [facility] LABTotal Protein6.3(L)6.4 - 8.2 g/dL LAB CHEMISTRY METHOD 01/30/2025 3:06 AM [facility] BVFDKC870 - 39 U/L LAB CHEMISTRY METHOD 01/30/2025 3:06 AM [facility] LABBilirubin, Total1.20.0 - 1.2 mg/dL LAB CHEMISTRY METHOD 01/30/2025 3:06 AM [facility] XABMPM4493 - 52 U/L LAB CHEMISTRY METHOD 01/30/2025 3:06 AM [facility] LABComment:Patients treated with Sulfasalazine may generate falsely decreased results for ALT.Specimen (Source)Anatomical Location / LateralityCollection Method / VolumeCollection TimeReceived TimeBloodVenous blood specimen / UnknownVenipuncture / Wuujzzw0301/30/2025 2:16 AM EDT1 2:32 AM EDT Narrative Authorizing ProviderResult TypeResult StatusFrkiley HILARIO BLOOD ORDERABLESFinal ResultPerforming OrganizationAddressCity/State/ZIP CodePhone Number [facility] [address] [facility] [address] [place] [address] * Echocardiogram (08/11/2024) Narrative 08/11/2024 Ordered by an unspecified provider. Authorizing ProviderResult TypeResult StatusGeneric Provider ScanningCV ECHO PROCEDURESFinal Result from Last 3 Months or Most Recently Relevant to Health Maintenance Insurance Advance Directives For more information, please contact: [phone] (Available ) * Full Code (Latest Code Status on File) Date ActivatedDate UsamfdspqajDfyxgidx63/22/2024 9:31 AMQuestionAnswerComments Plan of Care:* Code Status Discussion Completed Decision Maker:* Patient Care Teams Team MemberRelationshipSpecialtyStart DateEnd Date Coleman Luz DO [address] [place] [address] PCP - GeneralInternal Medicine05/07/24
--- OUTSIDE RECORDS SUMMARY | 2025-02-17 14:43 | XMS_ITS | Clinical Summary ---
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 Name Role Phone Melinda Verduzco APRN.OPTICAL ADVISOR Unavailable Coleman Luz DO Primary Care Provider [phone] Allergies No known active allergies Medications MedicationSigDispense QuantityRefillsLast FilledStart DateEnd DateStatus albuterol HFA (PROVENTIL HFA, VENTOLIN HFA) 90 mcg/actuation inhaler inhale 2 puffs by mouth every 6 hours09/16/2022ctive aspirin, enteric coated (ASPIRIN, ENTERIC COATED) 81 mg EC tablet Take 81 mg by mouth.Active irbesartan (AVAPRO) 150 mg tablet 01/04/2023ctive metoprolol succinate ER (TOPROL XL) 50 mg 24 hr tablet Take 1 tablet by mouth every afternoon.12/29/2022ctive ALPRAZolam (XANAX) 0.5 mg tablet Take 0.5 mg by mouth daily at bedtime.12/12/2022ctive atorvastatin (LIPITOR) 80 mg tablet 01/04/2023ctive levothyroxine (SYNTHROID) 150 mcg tablet Take 1 tablet by mouth every afternoon.12/29/2022ctive spironolactone-hctz 25/25 (ALDACTAZIDE) 25-25 mg per tablet Take 1 tablet by mouth every morning.01/25/2023ctive magnesium oxide (MAG-OX) 400 mg (241.3 mg magnesium) tablet Take 400 mg by mouth.06/13/2023ctive valACYclovir (VALTREX) 500 mg tablet Take 1 tablet by mouth every afternoon.03/22/2024Active escitalopram oxalate (LEXAPRO) 20 mg tablet Take 1 tablet by mouth every afternoon.4Active methylPREDNISolone (MEDROL) 4 mg Indications:Elevated sed rate,Elevated C-reactive protein (CRP),PMR (polymyalgia rheumatica) ([facility])Day 1=6tabs with food, Day 2=5tabs, Day 3=4tabs, Day 4=3tabs, Day 5=2tabs, Day 6=1tab, No NSAIDs onmed 21 tablet 1094Active allopurinol (ZYLOPRIM) 100 mg tablet Indications:Hyperuricemia,Idiopathic chronic gout of multiple sites without tophusTake 2 tablets by mouth every afternoon. 180 tablet 5Active ergocalciferol 50,000 unit capsule (VITAMIN D2, DRISDOL) Indications:Vitamin D deficiency(take by mouth with food twice a week, ONE CAPSULE ON SUNDAY AND ONE ON SUNDAY) FOR A TOTAL OF 10WEEKS. Then once a week thereafter 24 capsule 5Active celecoxib (CELEBREX) 200 mg capsule Indications:Idiopathic chronic gout of multiple sites without tophus,Pseudogout involving multiple joints,Chronic pain of both kneesTake 1 capsule by mouth two times a day. 180 capsule 5Active Active Problems ProblemNoted DateDiagnosed DateLeg weakness, yczzdckea34/24/2025Chronic pain of both knees03/05/2023ain in right hip01/05/2023Rotator cuff arthropathy of left nfktezen61/29/2023ilateral hand pain01/05/2023Secondary osteoarthritis of multiple sites01/05/2023seudogout involving multiple ysviwo5901/05/2023MR (polymyalgia rheumatica)01/05/2023Idiopathic chronic gout of multiple sites without qiidro6401/05/2023Long term current use of systemic rxvmxleb12/29/2023NA fzrhiaob93/29/2023ilateral hand eyxwviwe56/29/7397Juabkagmsx00/23/2014CAD (coronary artery disease)10/29/2013OA (osteoarthritis)10/29/2013Hyperlipidemia 10/29/20132803Dghfqktkkeprkz17/23/2014Swelling of knee joint06/01/2009 Encounters DateTypeDepartmentCare XeuiAtvvemiottg85/09/2025 [place] [address] Provider, f Medicare Coverage of Physical Examsfrom Last 3 Months Immunizations ImmunizationAdministration DatesNext Duediphtheria tetanus pertussis (DTaP) vaccine, unspecified ovuxzkgyyww40/05/2021influenza (aIIV3) vaccine, age 65+ yr, trivalent, PF (FLUAD)01/18/2021influenza (ccIIV4) vaccine, age 6+ mo, quadrivalent (FLUCELVAX)01/21/2018influenza vaccine, split virus02/06/2022, 01/13/2020,01/02/2019 Family History Medical HistoryRelationCommentsHeartFatherLipidsFatherStrokeMotherRelationStatus CommentsFatherMother Social History Tobacco UseTypesPacks/DayYears UsedDateSmoking Tobacco: Never Tobacco Cessation:Counseling Given: Yes Alcohol UseStandard Drinks/NtczOoewuttyTnk27 (1 standard drink = 0.6 oz pure alcohol)Area Deprivation IndexAnswerDate RecordedNational Score (1-100), lower number is lower cxca930209/13/2024State Score (1-10), lower number is lower risk4 09/13/2024Data from: https://www.neighborhoodatlas.[facility].edu/. Last address used for [address]/13/2024Sex and Gender InformationValueDate RecordedSex Assigned at BirthNot on fileLegal SexMale 03/10/2012 8:27 AM ESTGender IdentityNot on fileSexual OrientationNot on file OccupationIndustryJob Start DateJob End DateNot working nowNot on fileNot on fileNot on file Last Filed Vital Signs Vital SignReadingTime TakenCommentsBlood Itxsysdw004/8503 9:38 AM EDT Yjnqq2823 9:38 AM HASIthqziqeifr57.2 ??C (98.9 ??F)10/29/2013 3:23 PM EDTRespiratory Rate--Oxygen Saturation--Inhaled Oxygen Concentration--Qhrdtv629 kg (235 lb 14.3 oz)06/30/2024 9:38 AM KURKmebwx703.1 cm (5' 10.5 )01/05/2023 10:55 AM EDTBody Mass Index33.37001/05/2023 10:55 AM EDT Plan of Treatment DateTypeDepartmentCare Team (Latest Contact Info)Unvseidyofl86/23/2026 9:00 AM EDTOffice Visit Rheumatology [address] [place] [address] Rose Foster MD [address] [place] [address] Return for gout/osteoarthritis/pseudogout/low vit fu OV 6-12months.08/25/2025 12:00 PM EDTOffice Visit Rheumatology [address] [place] [address] Rose Foster MD [address] [place] [address] Follow up for osteoarthritis/PMR/gout in 6-12monthsHealth MaintenanceDue Date Last DoneCommentsAnnual PCP Team Chronic Disease Visit12/16/1977Anxiety Fklqzpcnu49/09/1978Depression Uoglyoblb49/09/1978HIV Iksuokwor60/09/1978LDL Tzpxbnakvsd22/09/1978Lipid Vywtbarfq03/09/1995CT Hclsvkujvzmq23/09/2005Cologuard (FIT-DNA)12/16/20040232Uabyfgibbuv14/09/2005Colorectal Cancer Quhargifr36/09/2005 Fecal Occult Blood12/16/20047933Uxytifmrwhrqq38/09/2005Pneumococcal Vaccine: 50+ (1 of 1 - PCV)12/16/2009Shingrix Vaccine (1 of 2)12/16/2009Medicare Advantage Annual Wellness Visit04/09/2024ovid-19 Vaccine (4 - 2024- season)2024 04/11/2021, 06/25/2020, 06/04/2020Influenza Vaccine (#1)5106/06/2022, 02/06/2022, 01/18/2021, Additional history existsAdvance Directive Discussion 12/16/2024Diabetes Tezikaowu05/24/71098006/30/2024, 01/29/2024, 06/12/2023, Additional history existsProstate Cancer Screening Yhdwqdfoun86/22/2028 3DTaP,Tdap,Td Vaccine (2 - Tdap)/1RSV Vaccine (1 - 1- dose 75+ series)12/16/2034Hepatitis C UyxpedlazEhzgyloar80/29/2023, 02/07/2010 Procedures Procedure NamePriorityDate/TimeAssociated DiagnosisCommentsCOMPREHENSIVE METABOLIC ABHZCVwiazdz88/24/2025 10:15 AM EDT Elevated LFTs HEPATITIS C ANTIBODY IA WITH QORUYFDNVPNTMllfsbo99/29/2023 12:31 PM EDT Elevated LFTs from Last 3 Months or Most Recently Relevant to Health Maintenance Results * (ABNORMAL) COMPREHENSIVE METABOLIC PANEL (06/30/2024 10:15 AM EDT)Component ValueRef RangeTest MethodAnalysis TimePerformed AtPathologist Signature Protein, Total7.16.3 - 8.0 g/dL06/30/2024 9:[address] [facility] LABAlbumin4.13.9 - 4.9 g/dL06/30/2024 9:[address] [facility] LABCalcium, Total9.78.5 - 10.2 mg/dL06/30/2024 9:[address] [facility] LABBilirubin, Total0.70.2 - 1.3 mg/dL06/30/2024 9:41 PM EDT [facility] LABAlkaline Arafsmbqpfl5173 - 113 U/L06/30/2024 9:[address] [facility] NZLCIF9185 - 40 U/L06/30/2024 9:[address] [facility] YOUZYY82(H)10 - 54 U/L06/30/2024 9:41 PM EDT [facility] RTQOmhpjad905(H)74 - 99 mg/dL06/30/2024 9:[address] [facility] LABComment: The [place] Diabetes Association (ADA) provides guidance for cutoff values for fasting glucose andrandom glucose. The ADA defines fasting as no [...] Standards of Medical Care in Diabetes 2016, [place] Diabetes Association. Diabetes Care. 2016.39(Suppl 1). LJU054 - 24 mg/dL06/30/2024 9:[address] [facility] LAB Creatinine0.930.73 - 1.22 mg/dL06/30/2024 9:[address] [facility] UNBGuhtiy050(L)136 - 144 mmol/L06/30/2024 9:[address] [facility] LABPotassium4.53.7 - 5.1 mmol/L06/30/2024 9:[address] [facility] XTIMkdvrxjs99(L)98 - 107 mmol/L06/30/2024 9:41 PM T [facility] VLBCW04641 - 30 mmol/L06/30/2024 9:41 PM [facility] LABAnion Nav584 - 15 mmol/L06/30/2024 9:41 PM [facility] LABEstimated Glomerular Filtration Rate92>=60 mL/min/1.73m 06/30/2024 9:[address] [facility] LABComment:Estimated Glomerular Filtration Rate (eGFR) is calculated using the 2020 CKD-EPI creatinine equation. This equation utilizes serum creatinine, sex, and age as parameters. The creatinine assay has traceable calibration to isotope dilution- mass spectrometry. Refer to KDIGO guidelines for clinical interpretation. In patients with unstable renal function, e.g. those with acute kidney injury, the eGFRmay not accurately reflect actual GFR.Specimen (Source)Anatomical Location / LateralityCollection Method / VolumeCollection TimeReceived TimeBloodBLOOD SPECIMEN / UnknownVenipuncture / Usgzhzp2506/30/2024 10:15 AM EDT06/30/2024 10:16 AM EDT Narrative Authorizing ProviderResult TypeResult StatusRose Foster MDLABORATORYFinal ResultPerforming OrganizationAddressCity/State/ZIP CodePhone Number [facility] [address] [facility] [place] [address], * HEPATITIS C ANTIBODY IA WITH CONFIRMATION (01/05/2023 12:31 PM EDT)Component ValueRef RangeTest MethodAnalysis TimePerformed AtPathologist SignatureHep C Antibody YFWwmckxbsIvcmuihs06/30/2023 10:28 AM EDTCKET[facility] LABComment:The result suggests no evidence of active infection with Hepatitis C virus. Should recent infectionbe suspected, repeat testing may be considered 4-6 weeks after this draw.Specimen (Source)Anatomical Location / Laterality Collection Method / VolumeCollection TimeReceived TimeBloodBLOOD SPECIMEN / UnknownVenipuncture / Diqfewv6701/05/2023 12:31 PM EDT01/05/2023 12:36 PM EDT Narrative Authorizing ProviderResult TypeResult StatusRose Foster MDLABORATORYFinal ResultPerforming OrganizationAddressCity/State/ZIP CodePhone Number [facility] [address] from Last 3 Months or Most Recently Relevant to [place] [address] Care Teams Team MemberRelationshipSpecialtyStart DateEnd Date Coleman Luz DO [address] [place] [address] PCP - GeneralInternal Medicine01/05/23 Melinda Verduzco APRN.[facility] [address] [place] [address] ReferringOrthopedics11/24/22
--- OUTSIDE RECORDS SUMMARY | 2025-02-17 14:46 | XMS_ITS | CCD ---
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 Name Role Phone Pcp, No Primary Care Provider UnavailVitaliy Santoyo DO Primary Care Provider Sarai Mendez II Unavailable [phone] Jonathan Samano Unavailable Melinda Verduzco Unavailable DO Vitaliy Brower Primary Care Provider MD Sarai Mendez II Attending Provider DO Vitaliy Brower Attending Provider DO Vitaliy Brower Primary Care Provider DO Vitaliy Brower Attending Provider MD Chio Nichole Attending Provider Chio Nichole Unavailable DO Vitaliy Brower Primary Care Provider MD Jonathan Samano Attending Provider DO Vitaliy Brower Primary Care Provider STEPHEN Guzman Emergency Provider Vitaliy Brower Unavailable DO Vitaliy Brower Primary Care Provider MD Jonathan Samano Attending Provider [phone] STEPHEN Guzman Emergency Provider [phone] RASHAD Verduzco Attending Provider Jonathan Shrestha Unavailable [...] MD Sarai Mendez II Attending Provider [phone] Sukhjinder Montesnios Unavailable Inocente, DO Cee Primary Care Provider [...] Verduzco Attending Provider PROVIDER, UNKNOWN Referring Unavailable INOCENTE VITALIY E Primary Care Unavailable Inocente DO Vitaliy E Primary Care Provider MD Antonio Steele Attending Provider MD Antonio Steele Referring Provider Inocente DO Vitaliy E Primary Care Provider Ball, DO Vitaliy Primary Care Provider MD Erin Suresh Emergency Provider MD Elliott Talley Admit Provider MD Elliott Talley Attending Provider MD Sally Alex Attending Provider Inocente DO Vitaliy E Primary Care Provider SANTOS CABRERA Attending Unavailable BallDO Cee Primary Care Provider Luba MITCHELL.Melinda RODRIGUEZ Unavailable InocenteDO Cee Primary Care Provider MD Mehrdad Mcmanus Attending Provider [phone] MD Bird Kowalski Attending Provider DO Vitaliy Brower Primary Care Provider MD Mehrdad Mcmanus Attending Provider [phone] MD Bird Kowalski Attending Provider Vitaliy Brower DO Primary Care Provider Mehrdad Mcmanus MD Attending Provider Bird Kowalski MD Attending Provider [phone] Inocente LIPSCOMB Vitaliy E Primary Care Provider Vitaliy Brower DO Primary Care Provider Bird Kowalski MD Attending Provider [phone] Inocente LIPSCOMB Vitaliy E Primary Care Provider Vitaliy Brower DO Primary Care Provider Bird Kowalski MD Attending Provider Cosmo Guzman APRN Emergency Provider Dionisio DOHERTY, Chio Moreno Attending Provider Andrea DOHERYT, Sarai Antunez Attending Provider [phone] Winnie Grande DO Emergency Provider Godwin DOHERTY, Lydia Admit Provider Lydia Connelly MD Attending Provider Mary Ann Miller RN Other Provider Unavailable Kathy Valle DO Other Provider Yazmin DOHERTY, Lala Other Provider Juan Luis DOHERTY, Nehemiah Lovett Other Provider Antonio Steele MD Other Provider [phone] Cuauhtemoc DOHERTY, Dutch Other Provider Geno Corona APRN Other Provider Tami Steele MD Other Provider Lul DOHERTY, Arnaldo Herrera Other Provider Munir Foote MD Other Provider Jose Luis [facility], Nicolle Blanco Other Provider [phone] BIRD KOWALSKI Attending Unavailable ANTONIO STEELE Referring Unavailable BALL, VITALIY E Primary Care Unavailable BIRD KOWALSKI Referring Unavailable BALL, VITALIY E Primary Care Unavailable Luba MITCHELL.TROUBLE CLERK, Melinda Blake Unavailable Vitaliy Brower DO Primary Care Provider Antonio Steele MD Attending Provider HELADIO PINEDA Attending Unavailable BALL, VITALIY E Primary Care Unavailable HELADIO PINEDA Attending Unavailable BALL, VITALIY E Primary Care Unavailable MIRIAM, HELADIO Referring Unavailable BALL, VITALIY E Primary Care Unavailable ANTONINO PINEDAT Attending Unavailable INOCENTE, VITALIY E Primary Care Unavailable Inocente DOVitaliy Primary Care Provider Vitaliy Brower DO Attending Provider [phone] Sarai Mendez MD Attending Provider [phone] Marcela Ortiz CMA Attending Provider Unavailedward Connelly MD, Lydia Other Provider Ada Woodruff MD Attending Provider Fang Zhu MD Attending Provider Salinas Ascencio DO Admit Provider Tomy Cabello MD Attending Provider Radha Medina MD Emergency Provider Yaakov DO, Yazid Admit Provider Siomara Nuno DOzid Attending Provider Cosmo Guzman APRN Emergency Provider Vitaliy Brower DO Primary Care Provider Antonio Steele MD Other Provider Vitaliy Brower DO Attending Provider Sarai Mendez MD Attending Provider Antonio Steele MD Admit Provider Antonio Steele MD Attending Provider Jonathan Samano MD Attending Provider TRABOULSSI, MOURHAF Attending Unavailable TRABOULSSI, MOURHAF Referring [...] Attending Provider UnavailCasimiro Milligan PA-C Attending Provider Vitaliy Brower DO Primary Care Provider Vitaliy Brower DO Primary Care Provider Vitaliy Brower DO Attending Provider Vitaliy Brower DO Primary Care Provider [phone] Sarai Mendez MD Attending Provider [phone] Winnie Grande DO Emergency Provider Vitaliy Brower DO Primary Care Provider WINNIE GRANDE Referring Unavailable VITALIY BROWER E Primary Care Unavailable COREY CORONA Consulting Unavailable GREG IRVING Attending Unavailable JOSE ANTONIO ADAMS Referring Unavailable VITALIY BROWER E Primary Care Unavailable DIOGO MACIAS Referring Unavailable VITALIY BROWER E Primary Care Unavailable Inocente, Vitaliy Primary Care Unavailable Bird Kowalski Admitting Unavailable Bird Kowalski Attending Unavailable Vitaliy Brower Primary Care Unavailable Chio Nichole Attending Unavailable Chio Nichole Admitting Unavailable Winnie Grande Attending Unavailable Vitaliy Brower Primary Care Unavailable Winnie Grande Admitting Unavailable Sarai Mendez II Attending Unavailabl e Inocenet, Vitaliy Primary Care Unavailable Sarai Mendez II Admitting Unavailabl e Antonio Steele Attending Unavailable Antonio Steele Admitting Unavailable Vitaliy Brower Primary Care Unavailable Sarai Mendez II Attending Unavailabl e Sarai Mendez II Admitting Unavailabl e Inocente, Vitaliy Primary Care Unavailable Antonio Steele Attending Unavailable Antonio Steele Admitting Unavailable Vitaliy Brower Primary Care Unavailable Tomy Cabello Attending Unavailable Vitaliy Brower Primary Care Unavailable Salinas Ascencio Admitting Unavailabl e Romychldread, Mary Ann Consulting Unavailable Paul Mary Ann Consulting Unavailable Kathy Valle Consulting Unavailable Lala Arce Consulting Unavailable Nehemiah Mcknight Consulting Unavail able Antonio Steele Consulting Unavailable Dutch Posadas Consulting Unavailab Geno Nevarez Consulting Unavailable Tami Steele Consulting Unavailable Arnaldo Mccarty Consulting Unavailab Munir Marin Consulting Unavailable Nicolle Amaya Consulting Unavailable Leidy Nuno Attending Unavailable Antonio Steele Consulting Unavailable Vitaliy Brower Primary Care Unavailable Siomara Nunomarc Admitting Unavailable Lydia Connelly Attending Unavailable Lydia Connelly Admitting Unavailable Mary Ann Miller Consulting [facility] Unavailable Mary Ann Miller Consulting Unavailable Kathy Valle Consulting Unavailable Lala Arce Consulting Unavailable Nehemiah Mcknight Consulting Unavail able Antonio Steele Consulting Unavailable Dutch Posadas Consulting Unavailab Geno Nevarez Consulting Unavailable Tami Steele Consulting Unavailable Arnaldo Mccarty Consulting Unavailab Munir Marin Consulting Unavailable Nicolle Amaya Consulting Unavailable Jonathan Samano Attending Unavailable [facility] Unavailable Jonathan Samano Admitting Unavailable [facility] Unavailable Cosmo Guzman Attending Unavailable Cosmo Guzman Admitting Unavailable Sarai Mendez II Attending Unavailflores ac [facility] Unavailable Sarai Mendez II Admitting UnavailVIJAYA Barnes Referring Unavailable VIJAYA HEWITT Primary Care Unavailable Allergies Allergy ClassificationReported Allergen(s)Allergy TypeDate of OnsetReaction(s) Facility (20 sources)Acetaminophen / oxyCODONEDrug AllergyProv[facility] [place] Other (20 sources)atorvastatinDrug Qgkoxhz55-20-5160Fnnkdyt, Unknown ReactionVan Wert [facility] Hospital (20 sources)predniSONE; Translations: [PREDNISONE]Drug Iqrtpal41-12-0995Hiktc, HeadacheVan Wert [facility] Hospital (20 sources)SimvastatinDrug Mlqtwpa44-79-3137QgkxtyaTztln [place] Other (1 source)patient allergy list reviewed by nurse or physiciaPropensity to adverse -08-8240Sgbsnzu:[facility] Other (3 sources)AcetaminophenDrug Imichzf16-34-3783Zhrjxbd ReactionVan Wert County Hospital (3 sources)oxyCODONEDrug Bnltigu72-46-9825Wcnwqve ReactionVan Wert County Hospital Medications Current Medications MedicationDrug Class(es)DatesSig (Normalized)Sig (Original)0.5 ML semaglutide 0.5 MG/ML Auto-Injector [Wegovy] (15 sources)Start: 44-24-1816Ftqjt: 57-05-0628ivhfih 0.5 mL by subcutaneous injection every weekWegovy 0.25 MG/0.5ML 0.5 mL Subcutaneous weekly for 30 days Sep, ActiveAcetaminophen (20 sources)Start: 35-61-2268axov 1 tablet by mouth every six hours as needed acetaminophen (Tylenol) tablet 650 mgStart: 06-82-1210osoc 2 tablets by mouth every eight hours for painAcetaminophen 500 MG 2 tablets for pain Orally every 8 hrs for 30 days Med to Bed Upon Discharge DOS: 02/13/2023 Jan, Active Start: 09-95-6858mvyq 2 tablets by mouth every eight hours for painAcetaminophen 500 MG 2 tablets for pain Orally every 8 hrs for 30 days MED TO BED UPON DISCHARGE. DOS: 07/04/2021 Jun, ActiveStart: 01-29-2017 End: 06-36-2447Yudeohtgadhjr (Tylenol Arthritis Pain) 650 mg Tablet Extended Release Discontinued 1300 MG PO Twicedaily January 29, 2017 12:00am February 13, 2023 10:43amAeroChamber Mini Chamber - (8 sources)Start: 21-59-7470Tyckc: 07-03-8370GuwkFmjmwev Mini Chamber - Use w/ Albuterol MDI inhaled every 6 hours as needed for 30 days Active allopurinol 100 mg oral tablet (20 sources)Xanthine Oxidase InhibitorStart: 14-49-4979mqet 2 tablets by mouth once dailyStart: 69-57-5150ugrl 2 tablets by mouth onceallopurinol (ZYLOPRIM) 100 mg tablet Indications: Hyperuricemia , Idiopathic chronic gout of multiple sites without tophus Take 2 tablets by mouth every afternoon. 180 tablet 3 07/07/2024 ActiveStart: 01-03-2024 End: 99-54-0949pffr 1 tablet by mouth once dailyAllopurinol 100 mg tablet Discontinued 0 .ROUTE .COMPLEX 90 3 January 03, 2024 2:35pm September 30, 2024 4:44pm TAKE 1 TABLET BY MOUTH EVERY DAYStart: 06-20-2021 End: 50-44-9543ekfs 1 tablet by mouth once dailyallopurinol (Zyloprim) 100 mg tablet Take 1 tablet (100 mg) by mouth once daily. 12/29/2022 ActiveComment on above:Take 1 tablet by mouth every afternoon.ALPRAZolam 0.5 mg oral tablet (20 sources)BenzodiazepineStart: 12-12-2022 End: 55-96-1460RHGQOKutpf (Xanax) 0.5 mg tablet Take 1 tablet (0.5 mg) by mouth as needed at bedtime for sleep. 12/12/2022 ActiveStart: 38-93-5755FIFDTPqsgx 0.5 MG TAKE 1 TABLET BY MOUTH EVERY DAY AT BEDTIME Orally Once A Day for 90 days ActiveStart: 88-25-1539mrxq 1 tablet by mouth once daily at bedtime ALPRAZolam 0.5 MG TAKE 1 TABLET BY MOUTH EVERY DAY AT BEDTIME for 30 Apr, ActiveStart: 10-25-2012 End: 30-76-0614edaz 1 tablet by mouth once daily at bedtimeAlprazolam (Xanax) 0.25 mg Tablet Discontinued 0.25 MG PO Daily at bedtime January 29, 2017 12:00am June 04, 2023 1:08pm insomniaComment on above:Take 0.5 mg by mouth daily at bedtime.Take 1 tablet by mouth at bedtime as needed.Aspir-81 (20 sources)Aspir-81 ActiveAspir-81 81 MG (20 sources)take 1 tablet by mouth once dailytake 1 tablet by mouth once daily Aspir-81 81 MG 1 tablet Orally Once a day Activeaspirin 81 mg oral tablet (20 sources)Platelet Aggregation Inhibitor, Nonsteroidal Anti-inflammatory Drug Start: 49-82-7069mjpb 1 tablet by mouth once dailyStart: 88-53-6194zkeo 81 mg by mouth once daily81 mg, oral, Daily, First dose on Sun01/30/24 at 0900, Phase II/On Unit, Do not crush, chew, or split.Start: 01-29-2024 End: 93-90-4665weft 324 mg by mouth symb607 mg, oral, Once, On Sun01/29/24 at 1000, For 1 dose, PreprocedureStart: 61-74-4703upvo 1 tablet by mouth twice dailyAspirin 81 MG 1 tablet Orally BID for 35 days MED TO BED UPON DISCHARGE. DOS: 07/04/2021 Jun, ActiveStart: 01-29-2017 End: 24-98-6703awql 1 tablet by mouth once dailyAspirin 81 mg Tablet,Delayed Release (Dr/Ec) Discontinued 81 MG PO Daily January 29, 2017 12:00amMa2024 3:20pm PA preventiontake 1 tablet by mouth two times weeklyaspirin 81 mg EC tablet Take 1 tablet (81 mg) by mouth 2 times a week. ActiveComment on above: Take 81 mg by mouth.atorvastatin 80 mg oral tablet (20 sources)HMG-CoA Reductase InhibitorStart: 09-19-2023 End: 27-68-0402qwng 1 tablet by mouth once daily in the eveningAtorvastatin 80 mg tablet Discontinued 0 .ROUTE .COMPLEX 90 3 July 02, 2024 6:52am September 29, 2024 4:03am TAKE 1 TABLET BY MOUTH ONCE EVERY EVENINGStart: 01-29-2017 End: 60-91-5293herc 1 tablet by mouth once daily in the evening End: 51-43-4437imfj 1 tablet by mouth three times weeklyatorvastatin 10 mg tablet Take 10 mg by mouth 3 times a WEEK. 0 01/05/2023 Discontinued (Course of therapy completed)Comment on above:Take 10 mg by mouth 3 times a WEEK.cefadroxil 500 mg oral capsule (10 sources)Cephalosporin AntibacterialStart: 90-04-4577chiw 1 capsule by mouth every twelve hoursCefadroxil 500 MG 1 tablet Orally every 12 hrs for 7 days Med to Bed Upon Discharge DOS: 02/13/2023 Jan, ActiveStart: 08-58-6842nmle 1 capsule by mouth every twelve hoursCefadroxil 500 MG 1 tablet Orally every 12 hrs for 7 days MED TO BED UPON DISCHARGE. DOS: Jun, 2021 Active celecoxib 200 mg oral capsule (20 sources)Nonsteroidal Anti-inflammatory DrugStart: 16-92-8374pnjb 1 capsule by mouth twice dailycelecoxib (CELEBREX) 200 mg capsule Indications: Idiopathic chronic gout of multiple sites without tophus , Pseudogout involving multiple joints , Chronic pain of both knees Take 1 capsule by mouth two times a day. 180 capsule 3 09/13/2024 ActiveStart: 06-20-2021 End: 59-92-1542aqzf 1 capsule by mouth once dailyCelecoxib 200 mg capsule Discontinued 200 MG PO Daily June 28, 2023 12:00am June 28, 2023 4:15pm Start: 53-15-1661xcqt 1 capsule by mouth every twelve hoursCelecoxib 200 MG 1 capsule with food Orally Twice a day for 30 day(s) MED TO BED UPON DISCHARGE. DOS: 07/04/2021 Jun, ActiveComment on above:Take 1 capsule by mouth every afternoon.cholecalciferol 0.05 mg oral tablet (1 source)Vitamin DStart: 68-51-9442diij 1 tablet by mouth onceCholecalciferol (Vitamin D3) (D3 Dots) 50 mcg (2,000 unit) tablet Active 50 MCG PO every Sunday andJuly 12:00amdapagliflozin 5 mg oral tablet (17 sources)Sodium-Glucose Cotransporter 2 InhibitorStart: 07-80-6051xkfb 1 tablet by mouth once daily in the morningStart: 10-01-2024 End: 56-67-7429cmkq 1 tablet by mouth once dailyDapagliflozin Propanediol 10 mg Tablet Discontinued 10 MG PO Daily October 01, 2024 12:00amJuly 2024 2:00pmdocusate sodium 100 mg oral capsule (1 source)Start: 98-42-2489hhic 100 mg by mouth twice daily for rjnoxrvfnrqt411 mg, oral, 2 times daily, First dose on Sun01/29/24 at 2100, Phase II/On Unit, Bowel Regimen - for prevention of constipation Hold for loose stoolsStart: 17-83-5658kbyk 100 mg by mouth twice daily for chojcpmkhugf721 mg, oral, 2 times daily, First dose on Sun01/29/24 at 2100, Phase II/On Unit, Bowel Regimen - f or prevention of constipation Hold for loose stoolsdocusate sodium 50 mg / sennosides, correction 8.6 mg oral tablet (10 sources)Start: 96-95-3113wygt 2 tablets by mouth every twenty-four hours Senokot S 8.6-50 MG 2 tablets Orally Once a day for 30 days Med to Bed Upon Discharge DOS: 02/13/2023 Jan, ActiveStart: 64-83-0441asmw 2 tablets by mouth every twenty-four hoursSenokot S 8.6-50 MG 2 tablets Orally Once a day for 30 day(s) MED TO BED UPON DISCHARGE. DOS: 07/04/2021 Jun, Active dofetilide 0.125 mg oral capsule (17 sources)AntiarrhythmicStart: 59-57-3927487 mcg, oral, Every 12 hours scheduled, First dose on Sun01/30/25 at 0730, Patients on dofetilide(Tikosyn) may not receive cimetidine, dolutegravir, thiazide and thiazide-like diuretics, itraconazole, ketoconazole, megesterol, prochlorperazine, trimethoprim, verapamil, or Biktarvy (bicitegravir,emtrictiabine, and tenofovir). QTc monitoring required 2-3 hours after each dofetilide dose during initiation or upward titration. Contact provider if QTc exceeds 500 msec on any check., Prescriber certifies: baseline QTc before dofetilide initiation isStart: 12-12-2024 End: 73-27-2355elgb 1 capsule by mouth every twelve hoursdofetilide (Tikosyn) 125 mcg capsule Take 1 capsule (125 mcg) by mouth every 12 hours. 12/12/2024 Ac tivedoxycycline hyclate 100 mg oral capsule (20 sources)Tetracycline-class DrugStart: 55-42-1599usfj 1 capsule by mouth twice dailyStart: 12-26-2024 End: 08-72-4021ozrv 1 capsule by mouth twice dailyDoxycycline Hyclate 100 mg capsule Discontinued 100 MG PO Twice daily 20 December 26, 2024 12:00am January 07, 2025 1:32pmStart: 09-12-2024 End: 79-45-4901cdpi 1 capsule by mouth twice dailyDoxycycline Hyclate 100 mg capsule Discontinued 100 MG PO Twice daily September 12, 2024 12:00am September 29, 2024 4:03amStart: 03-17-2024 End: 01-90-0549jgfm 1 capsule by mouth twice dailyDoxycycline Hyclate 100 mg capsule Discontinued 100 MG PO Twice daily May 02, 2024 3:47pm August 01, 2024 11:12amStart: 46-54-5188kahf 1 capsule by mouth every twelve hours Doxycycline Hyclate 100 MG 1 capsule Orally Twice a day for 7 days Mar, ActiveStart: 00-79-8663ugcc 1 tablet by mouth every twelve hoursDoxycycline Hyclate 100 MG 1 tablet Orally Twice a day for 14 days Feb, ActiveStart: 28-93-6825nctp 1 capsule by mouth twice dailyDoxycycline Hyclate 100 MG 1 capsule Orally twice daily for 10 days Jan, ActiveStart: 90-70-7121dnbn 1 capsule by mouth twice dailyDoxycycline Hyclate 100 MG 1 capsule Orally twice daily for 7 days August, Activeergocalciferol 1.25 mg oral capsule (20 sources)Provitamin D2 CompoundStart: 07-09-2023 End: 16-42-2477gvfhquwldnqyyq 50,000 unit capsule (VITAMIN D2, DRISDOL) Indications: Vitamin D deficiency (take bymouth with food twice a week, ONE CAPSULE ON SUNDAY AND ONE ON SUNDAY) FOR A TOTAL OF 10 WEEKS. Then once a week thereafter 24 capsule 1 07/07/2024 ActiveStart: 15-57-3204unih 1 capsule by mouth every week as neededErgocalciferol 1.25 MG (12330 UT) 1 capsule Orally Once a Week for 60 days Nov, Not-Taking/PRNStart: 28-98-0196uokl 1 capsule by mouth every weekVitamin D (Ergocalciferol) 1.25 MG (49677 UT) 1 capsule Orally once weekly for 8 weeks Mar,ctiveComment on above:(take by mouth with food twice a week, ONE CAPSULE ON SUNDAY AND ONE ON SUNDAY) FOR A TOTAL OF 8 WEEKS.escitalopram 20 mg oral tablet (20 sources)Serotonin Reuptake InhibitorStart: 59-10-0292hetm 1 tablet by mouth once dailyStart: 12-23-2023 End: 03-56-7334kjsz 1 tablet by mouth once dailyEscitalopram Oxalate 20 mg tablet Discontinued 0 .ROUTE .COMPLEX 90 1 June 14, 2024 5:03pm September 29, 2024 4:03am TAKE 1 TABLET BY MOUTH EVERY DAYStart: 06-29-2023 End: 03-28-9731bqss 1 tablet by mouth once dailyescitalopram (Lexapro) 20 mg tablet Take 1 tablet (20 mg) by mouth once daily. 06/29/2023 ActiveStart: 06-28-2023 End: 57-09-6650blcq 1 tablet by mouth once dailyEscitalopram Oxalate 10 mg tablet Discontinued 0 .ROUTE .COMPLEX 90 1 June 28, 2023 3:06pm 2023 10:36am TAKE 1 TABLET BY MOUTH EVERY DAY FOR 90 DAYSStart: 08-09-2022 End: 70-51-3746zrrq 1 tablet by mouth once daily at bedtimeEscitalopram Oxalate 10 mg tablet Discontinued 10 MG PO Daily at bedtime January 26, 2023 12:00am June 28, 2023 3:07pm painComment on above:Take 1 tablet by mouth every afternoon.famotidine 20 mg oral tablet (11 sources)Histamine-2 Receptor Antagonisttake 1 tablet by mouth every twenty- four hoursFamotidine 20 MG 1 tablet at bedtime as needed Orally Once a day ActiveguaiFENesin-Codeine 200-10 MG/5ML (17 sources)take 10 mL by mouth every six hours as needed for coughtake 10 mL by mouth every six hours as needed for coughguaiFENesin-Codeine 200-10 MG/5ML 10 mL as needed Orally every 6 hours as needed for cough for 7 days Not-Takingtake 10 mL by mouth every six hours as needed for coughguaiFENesin-Codeine 200-10 MG/5ML 10 mL as needed Orally every 6 hours as needed for cough for 7 days Activelevothyroxine sodium 0.15 mg oral tablet (20 sources)l-ThyroxineStart: 09-71-6308aoym 1 tablet by mouth once dailyStart: 06-20-2021 End: 08-63-2835knai 1 tablet by mouth once daily before mealtimelevothyroxine (Synthroid, Levoxyl) 150 mcg tablet Take 1 tablet (150 mcg) by mouth once daily in the morning. Take before meals. 12/29/2022 ActiveStart: 01-29-2017 End: 22-05-9841abrp 1 tablet by mouth once dailyLevothyroxine (Synthroid) 25 mcg Tablet Discontinued 25 MCG PO Daily January 29, 2017 12:00am June 20, 2021 1:26pmtake 1 tablet by mouth in the morninglevothyroxine (SYNTHROID, LEVOTHROID) 200 MCG tablet Take 1 tablet (200 mcg total) by mouth in the m orning. Activetake 1 tablet by mouth once dailyLevothyroxine Sodium 150 MCG TAKE 1 TABLET BY MOUTH EVERY DAY Active End: 34-79-9035plen 1 tablet by mouth once dailylevothyroxine (SYNTHROID) 175 mcg tablet Take 175 mcg by mouth once daily. 0 01/05/2023 Discontinued (Course of therapy completed)take 1 tablet by mouth every twenty-four hoursComment on above:Take 1 tablet by mouth every afternoon.Take 175 mcg by mouth once daily. Magic Mouthwash (5 sources)Magic Mouthwash Activemagnesium oxide 400 mg oral tablet (20 sources)Start: 56-36-8900srrj 1 tablet by mouth once dailyComment on above: Take 400 mg by mouth.24 hr metoprolol succinate 50 mg extended release oral tablet (20 sources)beta-Adrenergic BlockerStart: 03-20-2024 End: 79-21-1779pylv 1 tablet by mouth once dailyStart: 66-83-1433slad 1 tablet by mouth once dailyMetoprolol Succinate 50 mg tablet extended release 24 hr Active 0 .ROUTE .COMPLEX March 10:45am TAKE 1 TABLET BY MOUTH EVERY DAYStart: 51-50-1138aoft 1 tablet by mouth once dailyMetoprolol Succinate 50 mg tablet extended release 24 hr Active 0 .ROUTE .COMPLEX March 20, 2024 9:45am TAKE 1 TABLET BY MOUTH EVERY DAYStart: 52-57-4901guqs 1 tablet by mouth every hourmetoprolol succinate ER (TOPROL XL) 50 mg 24 hr tablet Take 1 tablet by mouth every afternoon. 12/29/2022 ActiveStart: 02-09-2021 End: 87-34-7046ilbq 1 tablet by mouth once dailymetoprolol succinate XL (Toprol- XL) 50 mg 24 hr tablet Take 1 tablet (50 mg) by mouth once daily. 12/29/2022 ActiveStart: 01-29-2017 End: 62-33-5040xpmb 1 tablet by mouth once dailyMetoprolol Succinate (Toprol Xl) 25 mg Tablet Extended Release 24 Hr Discontinued 25 MG PO Daily January 29, 2017 12:00am June 20, 2021 1:27pmMetoprolol Tartrate 25 MG (Prior Auth: Rx Ref#:[id number]) Oral for 90 ActiveComment on above:Take 1 tablet by mouth every afternoon.morphine sulfate 15 mg extended release oral tablet (10 sources)Opioid AgonistStart: 67-02-8346rvuk 1 tablet by mouth every twelve hours for painMorphine Sulfate ER 15 MG 1 tablet for breakthrough pain only Orally every 12 hrs for 5 days Med toBed Upon Discharge DOS: 02/13/2023 Jan, ActiveStart: 77-28-4342ejdj 1 tablet by mouth every twelve hours for pain Morphine Sulfate ER 15 MG 1 tablet for breakthrough pain only Orally every 12 hrs for 5 days MED TOBED UPON DISCHARGE. DOS: 07/04/2021 Jun, Active nitroglycerin 0.4 mg sublingual tablet (14 sources)Nitrate VasodilatorStart: 08-69-8959rhxsefcxkoy 8 mg oral tablet (12 sources)Serotonin-3 Receptor AntagonistStart: 16-57-3582zrmb 1 tablet by mouth three times daily as needed for nauseaOndansetron HCl 8 MG 1 tablet as needed for nausea Orally Three times a day for 10 days Med to Bed Upon Discharge DOS: 02/13/2023 Jan, ActiveStart: 91-02-0668wjea 1 tablet by mouth three times daily as needed for nauseaOndansetron HCl 8 MG 1 tablet as needed for nausea Orally TID for 10 days MED TO BED UPON DISCHARGE. DOS: 07/04/2021 Jun, Activeondansetron ODT (Zofran-ODT) disintegrating tablet 4 mg (1 source)Start: 88-29-6536neuy 1 tablet by mouth every eight hours as needed ondansetron ODT (Zofran-ODT) disintegrating tablet 4 mgoxyCODONE hydrochloride 5 mg oral tablet (10 sources)Opioid AgonistStart: 18-49-6673ogfx 1 tablet by mouth every four hours as needed for painoxyCODONE HCl 5 MG 1 tablet as needed for pain Orally every 4 hrs for 10 days Med to Bed Upon Discharge DOS: 02/13/2023 Jan, ActiveStart: 58-00-6835jjfq 1 tablet by mouth every four hours as needed for painoxyCODONE HCl 5 MG 1 tablet as needed for pain Orally every 4 hrs for 10 days MED TO BED UPON DISCHARGE. DOS: 07/04/2021 Jun, Activepantoprazole 40 mg delayed release oral tablet (20 sources)Proton Pump InhibitorStart: 39-05-7875jtyz 1 tablet by mouth once dailyStart: 07-01-2024 End: 13-22-4774nkew 1 tablet by mouth once dailyPantoprazole 40 mg tablet,delayed release (DR/EC) Discontinued 40 MG PO Daily 90 90 1 July 01, 2024 12:00am January 03, 2025 8:37amStart: 95-32-5840ptlqpfspudbj (ProtoNix) EC tablet 40 mgStart: 45-43-6624uueg 1 tablet by mouth every twenty-four hours Protonix 20 MG 1 tablet Orally Once a day for 30 days Jan, Active paxlovid (300/100) 20 x 150 mg & 10 x 100mg tablet therapy pack (2 sources)Start: 34-62-1883Zdytzeit (300/100) 20 x 150 MG & 10 x 100MG as directed Orally bid for 5 days Apr, Activeperflutren lipid microspheres (Definity) injection 0.5-10 mL of dilution (1 source)Start: .5-10 mL of dilution, intravenous, Once in imaging, Starting on Sun01/29/24 at 0931, For 1 dose, CV Medications, Contrast - for use by imaging provider only. Prior to administration, Definity product must be activated. First, bring vial to room temperature. Then, shake vial for 45 seconds. Do notuse if the 45 second activation cycle has not been completed. Following activation, the product will appear as a milky white suspension and may be used immediately. If not used within 5 minutes of activation, re-suspend by inverting and shaking the vial for 10 seconds. Discard unused product. Admini stration: Dilute 1.3 mL of activated DEFINITY with [...] flush line with 10 mL of Normal Saline.polyethylene glycol 3350 33570 mg powder for oral solution (10 sources)Osmotic LaxativeStart: 65-36-1493BjhyTkj 17 GM 1 packet mixed with 8 ounces of fluid Orally Once a day for 7 days Med to Bed Upon Discharge DOS: 02/13/2023 Jan, ActiveStart: 25-08-5444CinfWrl 17 GM 1 packet mixed with 8 ounces of fluid Orally Once a day for 7 days MED TO BED UPON DISCHARGE. DOS: 07/04/2021 Jun, ActivepredniSONE 20 mg oral tablet (13 sources)Start: 49-09-4658csum 1 tablet by mouth once dailypredniSONE 20 MG 1 tablet Orally Daily w/ food for 7 days Jul, ActivepredniSONE Active rivaroxaban 10 mg oral tablet (16 sources)Factor Xa InhibitorStart: 01-31-2023 End: 27-55-2049mruj 1 tablet by mouth every twenty-four hoursXarelto 10 MG 1 tablet with food Orally Once a day for 35 days Med to Bed Upon Discharge DOS: 02/13/2023 Jan, ActiveXarelto ActiveComment on above:TAKE 1 TABLET BY MOUTH ONCE A DAY WITH FOODspironolactone 25 mg oral tablet (14 sources)Aldosterone AntagonistStart: 07-43-7625yaaSEXwr hydrochloride 50 mg oral tablet (11 sources)Opioid AgonistStart: 24-94-8353mtfm 1 tablet by mouth every six hours as dovaxb26 mg, oral, Every 6 hours PRN, pain moderate (4-6), first line, Starting on Sun01/29/24 at 1458, Phase II/On Unit, If ordered PRN for pain, nurse is permitted to administer this medication for higher pain scores based on patient preference? YesStart: 70-02-0139mpdh 1 tablet by mouth every six hours as needed for paintraMADol HCl 50 MG 1 tablet as needed for pain Orally every 6 hrs for 10 days Med to Bed Upon Discharge DOS: 02/13/2023 Jan, Active Start: 03-55-6891fxkw 1 tablet by mouth every six hours as needed for pain traMADol HCl 50 MG 1 tablet as needed for pain Orally every 6 hrs for 10 days MED TO BED UPON DISCHARGE. DOS: 07/04/2021 Jun, ActivevalACYclovir 500 mg oral tablet (20 sources)Herpesvirus Nucleoside Analog DNA Polymerase Inhibitor, Herpes Simplex Virus Nucleoside Analog DNA Polymerase Inhibitor, Herpes Zoster Virus Nucleoside Analog DNA Polymerase InhibitorStart: 12-24-2023 End: 03-86-6104ccfw 1 tablet by mouth once dailyStart: 06-20-2021 End: 06-59-9110tspb 1 tablet by mouth once dailyvalACYclovir (Valtrex) 500 mg tablet Take 1 tablet (500 mg) by mouth once daily. 10/17/2021 ActiveComment on above:Take 1 tablet by mouth every afternoon.valsartan 40 mg oral tablet (20 sources)Angiotensin 2 Receptor BlockerStart: 11-19-2024 End: 10-63-6893rvrl 1 tablet by mouth once dailyvalsartan (Diovan) 40 mg tablet Indications: Cardiomyopathy, ischemic Take 1 tablet (40 mg) by mouth once daily. 90 tablet 3 11/19/2024 11/19/2025 ActiveStart: 09-29-2024 End: 68-69-4714fedj 1 tablet by mouth once dailyValsartan 40 mg Tablet Discontinued 40 MG PO Daily 30 30 September 29, 2024 12:00am October 08, 2024 2 :05pmStart: 09-08-2024 End: 81-03-0263Ygkszccrm 160 mg Tablet Discontinued 80 MG PO Daily September 08, 2024 12:00am September 09, 2024 10:12amStart: 08-13-2024 End: 02-45-7908orth 0.5 tablet by mouth in the morningvalsartan (Diovan) 160 mg tablet Take 0.5 tablets (80 mg) by mouth early in the morning.. 08/13/2024 11/19/2024 Discontinued (Discontinued by another clinician)Start: 08-13-2024 End: 17-23-4314awgb 1 tablet by mouth once dailyValsartan 160 mg Tablet Discontinued 160 MG PO Daily 30 0 August 13, 2024 12:00am September 08, 2024 11:58am Completed/Discontinued Medications MedicationDrug Class(es)DatesSig (Normalized)Sig (Original)acetaminophen 325 mg / oxyCODONE hydrochloride 5 mg oral tablet (20 sources)Opioid AgonistStart: 05-22-2022 End: 14-85-5699qmxh 1 tablet by mouth every eight hours as needed for pain Oxycodone-Acetaminophen (Percocet) 5-325 mg tablet Discontinued 1 TAB PO Q8H as needed for pain 10 3 0 May 22, 2022 January 26, 2023 11:02am Contusion of left shoulder Contusion of left shoulder, initial [id number] 200 actuat albuterol 0.09 mg/actuat metered dose inhaler (20 sources)beta2-Adrenergic AgonistStart: 06-28-2023 End: 61-16-7354ziws 1 puff(s) by inhalation every six hoursAlbuterol Sulfate 90 mcg/actuation HFA aerosol inhaler Discontinued 2 PUFF INHALATION Every 6 hours June 28, 2023 12:00am August 02, 2023 9:18amStart: 69-01-9199ewry 2 puff(s) by mouth every six hoursalbuterol HFA (PROVENTIL HFA, VENTOLIN HFA) 90 mcg/actuation inhaler inhale 2 puffs by mouth every 6 hours 09/16/2022 Active Start: 59-58-1059dfkp 2 puff(s) by inhalation every six hoursAlbuterol Sulfate HFA 108 (90 Base) MCG/ACT 2 puffs Inhalation every 6 hours for 30 days August, ActiveStart: 29-98-9246locr 2 puff(s) by mouth every six hoursAlbuterol Sulfate HFA 108 (90 Base) MCG/ACT INHALE 2 PUFFS BY MOUTH EVERY 6 HOURS for 25 ActiveComment on above:inhale 2 puffs by mouth every 6 hoursamoxicillin 500 mg oral capsule (20 sources)Penicillin-class AntibacterialStart: 04-07-2024 End: 93-22-3495Shngkthkary 500 mg capsule Discontinued 2000 MG PO As Directed 4 0 April 07, 2024 1:00am August 11, 2024 2:39pm SBE prophylaxisStart: 63-45-5742Kbtbgyfpmoo 500 MG 6 po 1 hour prior to dental and 3 po 6 hours after dental Orally as directed for1 day Dec, Activeamoxicillin 875 mg / clavulanate 125 mg oral tablet (20 sources)Penicillin-class AntibacterialStart: 07-30-2024 End: 51-14-0275feqk 1 tablet by mouth every twelve hoursAmoxicillin-Pot Clavulanate 875-125 mg tablet Discontinued 1 TAB PO Every 12 hours 20 10 0 July 30, 2024 12:00am August 11, 2024 2:39pmStart: 09-01-2023 End: 80-03-7242bfes 1 tablet by mouth twice dailyAmoxicillin-Pot Clavulanate 875-125 mg tablet Discontinued 1 TAB PO Twice daily 14 7 0 September 01, 2023 10:30am November 19, 2023 2:23pmapixaban 5 mg oral tablet (20 sources)Factor Xa InhibitorStart: 11-19-2024 End: 63-73-7406srwz 1 tablet by mouth twice dailyApixaban (Eliquis) 5 mg tablet Discontinued 5 MG PO Twice daily December 09, 2024 12:00am 2024 1:32pmStart: 08-13-2024 End: 77-33-5028vybj 1 tablet by mouth every twelve hoursEliquis 5 mg tablet Take 1 tablet (5 mg) by mouth every 12 hours. 08/13/2024 11/19/2024 Discontinued (Discontinued by another clinician)Start: 08-13-2024 End: 07-90-5282ldqu 1 tablet by mouth twice dailyApixaban (Eliquis) 5 mg Tablet Discontinued 5 MG PO Twice daily 60 30 0 August 13, 2024 12:00am September 29, 2024 4:03amStart: 12-19-2023 End: 57-06-3450vxtp 1 tablet by mouth once daily at bedtimeApixaban (Eliquis) 5 mg tablet Discontinued 0 .ROUTE .COMPLEX 60 December 19, 2023 9:55pm Arsh ellison 2023 12:15pm TAKE 1 TABLET BY MOUTH EVERY MORNING AND BEFORE BEDTIME FOR 30 DAYSStart: 05-18-2023 End: 48-56-1082chfm 1 tablet by mouth twice dailyApixaban 5 mg tablet Discontinued 5 MG PO Twice daily June 28, 2023 12:00am December 19, 2023 9:55pmStart: 05-18-2023 End: 01-43-7242kntx 1 tablet by mouth once daily at bedtimeELIQUIS 5 mg tab(s) TAKE 1 TABLET BY MOUTH EVERY MORNING AND BEFORE BEDTIME FOR 30 DAYS 06/24/2023 0 09/13/2024 Discontinued (Course of therapy completed)take 1 tablet by mouth every twelve hoursEliquis 5 MG 1 tablet Orally Twice a day ActiveComment on above: TAKE 1 TABLET BY MOUTH EVERY MORNING AND BEFORE BEDTIME FOR 30 DAYSatenolol 25 mg oral tablet (1 source)beta-Adrenergic BlockerStart: 10-25-2012 End: 98-49-1279ogfh 1 tablet by mouth once dailyatenolol 25 mg tablet Take 1 tablet by mouth once daily. 0 10/25/2012 01/05/2023 Discontinued (Course of therapy completed)Comment on above:Take 1 tablet by mouth once daily.benzonatate 200 mg oral capsule (20 sources)Non-narcotic AntitussiveStart: 05-14-2024 End: 32-39-0664omui 1 capsule by mouth three times dailyBenzonatate 200 mg capsule Discontinued 200 MG PO Three times daily 30 10 May 14, 2024 1:00am August 01, 2024 11:12amceFAZolin 2000 mg injection (1 source)Cephalosporin AntibacterialStart: 01-29-2024 End: g, intravenous, at 100 mL/hr, Administer over [...] all that apply): Surgical Prophylaxis, Indications: Surgical Prophylaxisclopidogrel 75 mg oral tablet (20 sources)P2Y12 Platelet InhibitorStart: 08-13-2024 End: 67-35-2574oaoj 1 tablet by mouth once dailyClopidogrel 75 mg Tablet Discontinued 75 MG PO Daily 30 30 0 August 13, 2024 12:00am September 29, 2024 4:03am Start: 01-30-2024 End: 54-64-6474Jubzhbejeyv 75 mg tablet Discontinued MG PO February 18, 2024 1:00am August 01, 2024 11:12am End: 56-07-1708jiwq 1 tablet by mouth once dailyclopidogrel (PLAVIX) 75 mg ORAL tablet Take one(1) tablet daily. 0 03/05/2023 Discontinued (Course of therapy completed)Comment on above:Take one(1) tablet daily.codeine phosphate 2 mg/ml / guaiFENesin 20 mg/ml oral solution (20 sources)Opioid AgonistStart: 03-17-2024 End: 93-89-6056dshi 1 mL by mouth every six hours as needed for coughCodeine- Guaifenesin 10-100 mg/5 mL liquid Discontinued 10 ML PO Every 6 hours as needed for cough 200 5 March 17, 2024 1:00am August 01, 2024 11:12am Cough Cough, unspecifiedStart: 03-17-2024 End: 55-25-7099dsyy 1 mL by mouth every six hours as needed for coughCodeine- Guaifenesin 10-100 mg/5 mL liquid Discontinued 10 ML PO Every 6 hours as needed for cough 200 March 17, 2024 1:00am August 01, 2024 11:12amStart: 46-77-9033levw 1 mL by mouth every six hours as needed for coughCodeine- Guaifenesin 10-100 mg/5 mL liquid Active 10 ML PO Every 6 hours as needed for cough 200 March 17, 2024 1:00amStart: 93-57-1056jfhp 1 mL by mouth every six hours as needed for coughCodeine-Guaifenesin 10-100 mg/5 mL liquid Active 10 ML PO Every 6 hours as needed for cough 200 March 17, 2024 12:00amStart: 55-99-5309tgwy 10 mL by mouth once at bedtime as needed for coughguaiFENesin- Codeine 100-10 MG/5ML 10 mL as needed Orally q HS as needed for cough for 7 days August, Activecolchicine 0.6 mg oral capsule (20 sources)Start: 10-08-2024 End: 92-08-2105upjd 1 capsule by mouth once dailyColchicine 0.6 mg capsule Discontinued 0.6 MG PO Daily October 08, 2024 12:00am October 08, 2024 2:42pmStart: 08-02-2023 End: 90-83-9451lpuk 1 capsule by mouth every other dayColchicine 0.6 mg capsule Discontinued 0.6 MG PO .every other day August 02, 2023 12:00am 2023 9:21amStart: 23-33-3205igje 0.6 mg by mouth once dailyColchicine Active 0.6 MG PO Daily August 02, 2023 12:00amStart: 07-05-2023 End: 77-07-4893that 1 tablet by mouth twice dailycolchicine 0.6 mg tablet Indications: Idiopathic chronic gout of multiple sites without tophus Lrak0hxk by mouth up to twice a day as tolerated. May cause diarrhea. 60 tablet 3 07/05/2023 09/13/2024Discontinued (Course of therapy completed)Start: 02-07-2010 take 1 tablet by mouth once dailycolchicine 0.6 mg ORAL tablet Indications: Pseudogout , Knee pain , Knee swelling Take one(1) tablet daily. 60 Tab 0 02/07/2010 ActiveComment on above:Take one(1) tablet daily.Take 1tab by mouth up to twice a day as tolerated. May cause diarrhea.diazePAM 5 mg oral tablet (20 sources)BenzodiazepineStart: 06-28-2023 End: 10-53-6925zbxy 1 tablet by mouth once dailyDiazepam 5 mg tablet Discontinued 5 MG PO Daily June 28, 2023 12:00am August 02, 2023 9:17am Start: 02-07-7320Wbuaox 5 MG take 1 tablet 1/2 hour prior to MRI . May repeat if needed. Orally Jun, Activetake 1 tablet by mouth every twenty-four hoursdiazePAM 5 MG 1 tablet as needed Orally Once a day Activediclofenac sodium 0.01 mg/mg topical gel (18 sources)Nonsteroidal Anti-inflammatory DrugStart: 08-06-2024 End: 82-44-4887Vqpxjreelv Sodium 1 % gel Discontinued 2 GM TOPICAL .4-5 times a day as needed for knee pain 05 08 2April 2024 12:00am September 29, 2024 4:03amStart: 83-10-2779Dvlbgqtpvq Sodium 1 % gel Active 2 GM TOPICAL .4-5 times a day as needed for knee pain 05 08August 06, 2024 12:00amEPINEPHrine 0.01 mg/ml / lidocaine hydrochloride 20 mg/ml injectable solution (1 source)Antiarrhythmic, alpha-Adrenergic Agonist, beta-Adrenergic Agonist, Catecholamine, Amide Local AnestheticStart: 01-29-2024 End: mL, subcutaneous, Once as needed, to oozing access site, Starting on Sun01/29/24 at 1458, For 1 dose, Phase II/On Unit, Inject at site of bleedhydroCHLOROthiazide 25 mg / spironolactone 25 mg oral tablet (20 sources)Thiazide Diuretic, Aldosterone AntagonistStart: 09-08-2024 End: 82-84-9872rghb 1 tablet by mouth once dailySpironolacton-Hydrochlorothiaz 25-25 mg tablet Discontinued 1 TAB PO Daily September 08, 2024 12:00am October 01, 2024 12:06pmStart: 38-51-0780nauq 1 tablet by mouth once daily in the morning spironolacton-hydroCHLOROthiaz (ALDACTAZIDE) 25-25 mg per tablet TAKE 1 TABLET BY MOUTH EVERY DAY IN THE MORNING 90 tablet 1 04/08/2024 ActiveStart: 01-02-2023 End: 97-57-5810sfko 1 tablet by mouth once daily before mealtimespironolacton- hydrochlorothiaz (Aldactazide) 25-25 mg tablet Take 1 tablet (25 mg) by mouth once daily in the morning. Take before meals. 01/02/2023 ActiveComment on above: Take 1 tablet by mouth every morning.hydroCHLOROthiazide 25 mg / triamterene 37.5 mg oral capsule (20 sources)Potassium-sparing Diuretic, Thiazide DiureticStart: 06-20-2021 End: 83-60-3128xlmw 1 capsule by mouth once daily in the morningTriamterene- Hydrochlorothiazid 37.5-25 mg capsule Discontinued 1 CAP PO Every morning June 20, 2021 12:00am June 28, 2023 4:16pm Meniere's diseasetake 1 capsule by mouth every twenty-four hoursComment on above:TAKE 1 CAPSULE BY MOUTH EVERY DAY IN THE MORNING FOR 30 DAYS0.5 ml HYDROmorphone hydrochloride 1 mg/ml prefilled syringe (1 source)Opioid AgonistStart: 01-30-2025 End: .5 mg, intravenous, Once, On Sun01/30/25 at 0740, For 1 dose iohexol (OMNIPaque) 350 mg iodine/mL solution 70 mL (1 source)Start: 01-29-2024 End: mL, intravenous, Once in imaging, Starting on Sun01/29/24 at 0922, For 1 doseiohexol (OMNIPaque) 350 mg iodine/mL solution 85 mL (1 source)Start: 06-13-2024 End: mL, intravenous, Once in imaging, Starting on Sun06/13/24 at 1424, For 1 doseirbesartan 150 mg oral tablet (20 sources)Angiotensin 2 Receptor BlockerStart: 06-20-2021 End: 27-25-1245cwxk 1 tablet by mouth once daily in the morningIrbesartan 150 mg tablet Discontinued 150 MG PO Every morning June 20, 2021 12:00am June 28, 2023 4:16pm htn24 hr isosorbide mononitrate 30 mg extended release oral tablet (14 sources)Nitrate VasodilatorStart: 09-29-2024 End: 87-34-0383jdqe 1 tablet by mouth once daily in the morning, then take 1 tablet by mouth every twenty-four hoursIsosorbide Mononitrate 30 mg Tablet Extended Release 24 Hr Discontinued 30 MG PO Every morning September 29, 2024 12:00am January 07, 2025 1:33pmlisinopril 10 mg oral tablet (20 sources)Angiotensin Converting Enzyme InhibitorStart: 01-29-2017 End: 54-94-1601dgqh 1 tablet by mouth once dailyLisinopril 10 mg Tablet Discontinued 10 MG PO Daily January 29, 2017 12:00am June 20, 2021 1:24pm take 1 tablet by mouth every twenty-four hoursLisinopril 20 MG 1 tablet Orally Once a day Activemeloxicam 15 mg oral tablet (20 sources)Nonsteroidal Anti-inflammatory DrugStart: 08-06-2024 End: 55-09-0204ktxv 1 tablet by mouth once dailyMeloxicam 15 mg tablet Discontinued 15 MG PO daily September 02, 2024 12:00am September 08, 2024 11: 58amStart: 11-17-2013 End: 17-51-8654mmmc 1 tablet by mouth once dailymeloxicam 7.5 mg tablet Take 1 tablet by mouth once daily. 30 tablet 1 11/17/2013 03/05/2023 Discontinued (Course of therapy completed)Comment on above:Take 1 tablet by mouth once daily. methylPREDNISolone 8 mg oral tablet (20 sources)CorticosteroidStart: 10-08-2024 End: 40-13-3046zqrt 4 mg by mouth once dailyMethylprednisolone (Medrol) 8 mg tablet Discontinued 4 MG PO Daily October 08, 2024 12:00am January 12, 2025 2:27pmStart: 43-31-7250svma 1 tablet by mouth once dailyStart: 09-08-2024 End: 22-13-4351idmn 1 tablet by mouth twice dailyMethylprednisolone 4 mg tablet Discontinued 4 MG PO Twice daily September 08, 2024 12:00am September 09, 2024 10:10am Start: 03-23-2024 End: 71-43-9429ywnk 1 tablet by mouth twice dailyMethylprednisolone 4 mg tablet Discontinued 0 .ROUTE .COMPLEX 60 2 March 23, 2024 10:17am August 11, 2024 3:23pm TAKE 1 TABLET BY MOUTH TWICE A DAY FOR 30 DAYSStart: 03-23-2024 End: 10-19-2482xrvv 1 tablet by mouth twice dailyMethylprednisolone 4 mg tablet Discontinued 4 MG PO Twice daily 60 30 5 March 23, 2024 1:00am March 23, 2024 10:17amStart: 12-15-2023 End: 10-07-8909fpct 1 tablet by mouth once dailyMethylprednisolone 4 mg tablet Discontinued 4 MG PO Daily August 11, 2024 12:00am August 19, 2024 4:09pmStart: 09-05-2023 End: 36-13-2147wlgdiuITNYSGXtabnx (MEDROL) 4 mg Indications: Elevated sed rate , Elevated C-reactive protein (CRP), PMR (polymyalgia rheumatica) (HCC) Day 1=6tabs with food, Day 2=5tabs, Day 3=4tabs, Day 4=3tabs, Day 5=2tabs, Day 6=1tab, No NSAIDs on med 21 tablet 1 09/05/2023 12/13/2023 DiscontinuedStart: 54-20-8338lxab 2 tablets by mouth once dailymethylPREDNISolone (Medrol) 4 mg tablet Take 2 tablets (8 mg) by mouth once daily. 07/05/2023 ActiveStart: 07-05-2023 End: 34-77-6270xths 1 tablet by mouth twice dailyMethylprednisolone (Medrol) 4 mg tablet Discontinued 4 MG PO Twice daily August 01, 2023 12:00am December 20, 2023 2:53pmStart: 07-05-2023 End: 62-01-1463ygmn 1 tablet by mouth every other dayMethylprednisolone (Medrol) 4 mg tablet Active 4 MG PO Q2D August 01, 2023 12:00amStart: 06-28-2023 methylPREDNISolone (MEDROL) 4 mg Indications: PMR (polymyalgia rheumatica) (HCC) , Elevated sed rate , Elevated C-reactive protein (CRP) ALTERNATE 1 TABLET AND 1/2 TABLET BY MOUTH EVERY OTHER DAY 30 tablet 0 06/28/2023 ActiveStart: 44-43-1676wgmpisISUMRLUewdoc (MEDROL) 2 mg tablet Indications: PMR (polymyalgia rheumatica) (HCC) , Elevated sed rate , Elevated C-reactive protein (CRP) Alternate 4mg and 2mg every other day 60 tablet 1 03/05/2023 ActiveStart: 11-23-2022 End: 69-63-4339esbj 1 tablet by mouth once daily in the morning Methylprednisolone 4 mg tablet Discontinued 4 MG PO Every morning January 26, 2023 12:00am June 06, 2023 2:35pmtake 1 tablet by mouth once daily methylPREDNISolone 2 MG 1 tablet w/ food Orally daily for 14 days ActiveComment on above:TAKE 1 TABLET BY MOUTH WITH FOOD DAILYTAKE 1 TABLET BY MOUTH WITH FOOD DAILY FOR 14 DAYStake 1 tablet by mouth every day with foodAlternate 4mg and 2mg every other dayALTERNATE 1 TABLET AND 1/2 TABLET BY MOUTH EVERY OTHER DAY4 TABLET BY MOUTH EVERY OTHER DAYmupirocin 0.02 mg/mg topical ointment (20 sources)RNA Synthetase Inhibitor AntibacterialStart: 12-26-2024 End: 58-68-2304Xsedgzvfv 2 % ointment Discontinued 1 APPLIC TOPICAL Twice daily December 26, 2024 12:00am January 07, 2025 1:33pmStart: 06-28-2023 End: 99-23-4704Eokjhlefg 2 % ointment Discontinued 1 APPLIC TOPICAL Twice daily June 28, 2023 12:00am August 02, 2023 9:18amStart: 73-36-0841Ezeltdilu 2 % 1 application Externally Twice a day for 10 days Jan, Activeomeprazole 40 mg delayed release oral capsule (20 sources)Proton Pump InhibitorStart: 07-01-2024 End: 98-47-6924uefh 1 capsule by mouth once dailyOmeprazole 40 mg capsule,delayed release(DR/EC) Discontinued 40 MG PO Daily 90 90 0 July 01, 2024 12:00am July 01, 2024 4:31pmtake 1 capsule by mouth once dailyOmeprazole 40 MG 1 capsule 30 minutes before morning meal Orally Once a day Active Semaglutide (6 sources)Start: 01-14-2025 End: 78-84-7863bkrnvd 0.25 mg by subcutaneous injection every week, then inject 0.5 mg by subcutaneous injection every weekSemaglutide (Ozempic) 0.25 mg or 0.5 mg (2 mg/3 mL) pen injector Discontinued 0 SUBCUT every week 328 January 14, 2025 12:50pm January 16, 2025 9:00am subcutaneously every week; 0.25mg SC weekly x 4 then increase to 0.5mg SC weeklyStart: 01-12-2025 End: 70-77-5741rlcgch 0.25 mg by subcutaneous injection every week, then inject 0.5 mg by subcutaneous injection every weekSemaglutide (Ozempic) 0.25 mg or 0.5 mg (2 mg/3 mL) pen injector Discontinued 0 SUBCUT every week 328 January 12, 2025 12:00am January 14, 2025 12:50pm subcutaneously every week; 0.25mg SC weekly x 4 then increase to 0.5mg SC weeklysildenafil 100 mg oral tablet (20 sources)Phosphodiesterase 5 InhibitorStart: 06-28-2023 End: 29-31-0937itxe 1 tablet by mouth once daily as neededSildenafil 100 mg tablet Discontinued 100 MG PO Daily as needed for sexual activity June 28, 2023 12:00am August 11, 2024 2:41pmStart: 18-31-4114pwuz 1 tablet by mouth once daily as neededSildenafil Citrate 100 MG 1 tablet as needed Orally Once a day as needed for 30 days Sep, ActiveSod Picosulf-Mag Ox-Citric Ac (20 sources)Start: 12-06-2023 End: 32-89-7839eedj 1 mL by mouth once daily in the morningSod Picosulf-Mag Ox- Citric Ac (Clenpiq) 10 mg-3.5 gram- 12 gram/175 mL solution Discontinued 175 ML PO Every morning 350 1 0 December 06, 2023 12:00am December 31, 2023 10:38am Follow instructionsgiven by officeStart: 12-06-2023 End: 74-81-6660xlww 1 mL by mouth once daily in the morningSod Picosulf-Mag Ox- Citric Ac (Clenpiq) 10 mg-3.5 gram- 12 gram/175 mL solution Discontinued 175 ML PO Every morning 350 1 December 05, 2023 11:00pm December 31, 2023 9:38am Follow instructions given by officeStart: 12-06-2023 End: 10-21-0939vtkc 1 mL by mouth once daily in the morningSod Picosulf-Mag Ox- Citric Ac (Clenpiq) 10 mg-3.5 gram- 12 gram/175 mL solution Discontinued 175 ML PO Every morning 350 1 December 06, 2023 12:00am December 31, 2023 10:38am Follow instructions given by officetrdailymcinolone acetonide 40 mg/ml injectable suspension (20 sources)CorticosteroidStart: 33-76-8341Svacljs-40 August, 60 mgStart: 76-75-3508Irlkptg-40 Feb, 40 mgStart: 46-71-0824Gagtz: 66-51-5355Kxbbk: 05-55-1694Vcteijy -40 mg May, 40 mgStart: 90-92-1376Mlzlh: 05-07-2020 Kenalog -40 mg Apr, 40 mgStart: 31-50-3956Bqysz: 54-88-1306Bqkrita -40 mg Oct, 40 mgStart: 26-35-6734Ozqoq: 05-53-0821Cpjolth -40 mg May, 10 mgStart: 04-83-1470Oplmm: 86-63-8470Oqpdiqf -40 mg Mar, 40 mg Start: 14-80-7022Vpawe: 27-65-6346Msyjkxk -40 mg Apr,Start: 05-23-2016 Start: 42-14-8402Xjczsbb -40 mg May, Problems Active Problems Problem ClassificationProblemDateDocumented DateEpisodic/ChronicAbdominal pain (20 sources)Indigestion; Translations: [Epigastric pain]Onset: 07-10-2016 74-64-7452KdxjwgbvHqgnn bronchitis (20 sources)Acute bronchitis due to other specified organisms; Translations: [Acute bronchitis]Onset: 97-51-1230LdrqiixaMbjtd posthemorrhagic anemia (1 source)Acute posthemorrhagic anemiaEpisodicAnxiety disorders (20 sources)Generalized anxiety disorder; Translations: [Generalized anxiety disorder]27-97-9211UcybvktHewixd; peripheral; and visceral artery aneurysms (15 sources)Aortic root dilatation; Translations: [Thoracic aortic ectasia] Onset: 792620-00-7664PpqhvpxRpeslxxbj and vision defects (1 source)Visual impairment; Translations: [Unspecified visual loss]Chronic Cardiac dysrhythmias (20 sources)Persistent atrial fibrillation; Translations: [Other persistent atrial fibrillation]Onset: 04-18-2023 Resolved: [id number] on above:d/t medication from covid d/t medication from COVID,Watchman 01/2024Watchman 01/2024s/p LAAO procedure - 01/2024,Echo: LVEF 45%, CHARISSA, normal RV size/function - 08/2024,DCCV: 09/2024s/p LAAO procedure - 01/2024,Echo: LVEF 45%, CHARISSA, normal RV size/function - 08/2024,DCCV: 09/2024, 5Chronic ulcer of skin (7 sources)Non-pressure chronic ulcer of unspecified part of unspecified lower leg with unspecified severity; Translations: [Ulcer of lower extremity]Chronic Coagulation and hemorrhagic disorders (20 sources)Purpura of skin co-occurrent and due to vascular fragility; Translations: [Other nonthrombocytopenic purpura]17-34-4088HwtukfyjMdsepeldukkt of device; implant or graft (16 sources)Arteriosclerosis of autologous vein coronary artery bypass graft; Translations: [Atherosclerosis ofcoronary artery bypass graft(s) without angina pectoris]Onset: 11-13-2014 Resolved: [id number]uoh of device; implant or graft (1 source)Pain due to internal orthopedic prosthetic devices, implants and grafts, initial encounterEpisodicConditions associated with dizziness or vertigo (9 sources)Meniere's disease; Translations: [Meniere's disease, bilateral] ChronicCongestive heart failure; nonhypertensive (20 sources)Heart failure; Translations: [Heart failure, unspecified] Resolved: 518252-14-6033AezvrpyMwkhhgth atherosclerosis and other heart disease (20 sources)Coronary arteriosclerosis; Translations: [Atherosclerotic heart disease of [place] coronary artery without angina pectoris]Onset: 10-29-2013 48-21-7912QjvgrooRogkvzh on above:CABG x - 2014,PCI/stent (prior to 2014) PCI/stent (prior to 2014),CABG x - 2014,Stress NM: LVEF 33%, inferolateral fixed defect - 08/2024,LHC: LVEF 35%, patent grafts - 09/2024PCI/stent (prior to 2014)Coronary atherosclerosis and other heart disease (2 sources)Presence of aortocoronary bypass graft; Translations: [Presence of aortocoronary bypass graft]Onset: 79-85-0948TvrbgzjnOkxtuwdbee and other anemia (3 sources)Anemia of chronic disease; Translations: [Anemia in other chronic diseases classified elsewhere]05-34-3589KotwnpcErcukxzntw and other anemia (1 source)Anemia in other chronic diseases classified elsewhere; Translations: [Anemia of chronic disease]Onset: 91-50-7589UpuvyguBgyblhob mellitus with complications (6 sources)Hyperglycemia due to type 2 diabetes mellitus; Translations: [Type 2 diabetes mellitus with hyperglycemia]25-76-1215ZyiqcefPuwggyli of mouth; excluding dental (1 source)GlossitisEpisodicDisorders of lipid metabolism (20 sources)Hyperlipidemia; Translations: [Hyperlipidemia, unspecified]Onset: 269111-06-4429MllvczlGmevioinxhldnw and diverticulitis (20 sources)Diverticulitis of gastrointestinal tract; Translations: [Diverticulitis of intestine]65-36-0080YmzdrklJ Codes: Adverse effects of medical drugs (14 sources)Adverse reaction to drug; Translations: [Adverse effect of unspecified drugs, medicaments and biological substances, initial encounter] Onset: 434332-45-4907GerezqenNkyhgumrcg disorders (20 sources)Gastro-esophageal reflux disease with esophagitis; Translations: [Gastroesophageal reflux disease with esophagitis without hemorrhage]06-28-2023 ChronicEssential hypertension (20 sources)Essential hypertension; Translations: [Essential (primary) hypertension]Onset: 61-70-2108IzlkzawLupq and other crystal arthropathies (20 sources)Calcium pyrophosphate deposition disease; Translations: [Other chondrocalcinosis, unspecified site]Onset: 751994-65-3468QclcewoBogsfhuy; including migraine (4 sources)Migraine; Translations: [Migraine, unspecified, not intractable, without status migrainosus]74-48-0635QfdwmdzNybqntbh; including migraine (13 sources)Headache; Translations: [Headache]50-70-6823KmpsmxxvYdpqs valve disorders (20 sources)Mitral and aortic incompetence; Translations: [Mitral valve insufficiency and aortic valve insufficiency]Onset: 12-29-2015 Resolved: 771513-79-5881CftywpwPaowu valve disorders (2 sources)Irregular heart beatOnset: 91-01-5186DkbcbhymXmfwdyuiqmd of prostate (1 source)Benign prostatic hypertrophy with outflow obstruction; Translations: [Hypertrophy (benign) of prostate with urinary obstruction and other lower urinary tract symptoms [LUTS]]Onset: 69-82-2741NuytvnfWvhui disorders and dislocations; trauma-related (1 source)Current tear of medial cartilage AND/OR meniscus of knee; Translations: [Tear of medial cartilage or meniscus of knee, current]Episodic Mood disorders (20 sources)Recurrent major depressive episodes, mild ; Translations: [Major depressive disorder, recurrent, mild]ChronicNausea and vomiting (20 sources)Nausea; Translations: [Nausea]22-23-0436MjmoedjwEtlhuxgaeul deficiencies (20 sources)Vitamin D deficiency; Translations: [Vitamin D deficiency, unspecified]Onset: 267929-04-9690OspztliNsxewkfnxze deficiencies (2 sources)Cobalamin deficiency; Translations: [Deficiency of other specified B group vitamins]28-17-3381MumnwqiyNkvp wounds of extremities (9 sources)Puncture wound without foreign body of left index finger without damage to nail, subsequent encounter; Translations: [Laceration of lower limb] Resolved: 407390-06-3323InfwgrejQqgamwnskcbhot (20 sources)Osteoarthritis; Translations: [Unspecified osteoarthritis, unspecified site]Onset: 09-22-2013 Resolved: 846299-17-5801MqpudpwPnugubdgtwnz (5 sources)Primary osteoporosis; Translations: [Age-related osteoporosis without current pathological fracture]Onset: 105548-45-8988PgsumhqXqhtk aftercare (20 sources)Patient encounter status; Translations: [Aftercare following joint replacement surgery]58-64-4946UnjffveOmein aftercare (14 sources)Aftercare following joint replacement surgery; Translations: [Aftercare following joint replacement]ChronicOther aftercare (3 sources)Other fdc (current) drug therapy; Translations: [OTH LAW SECRETARY CURRENT DRUG THERAPY]Onset: 63-09-6965NbexrzybBnkik aftercare (2 sources)Long-term current use of drug therapy; Translations: [Other emt intermediate (current) drug therapy]EpisodicOther aftercare (20 sources)Long-term current use of systemic steroid; Translations: [terminal block assembler (current) use of 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]Onset: 962856-16-3385HrdatawoWwrcn aftercare (8 sources)Long-term current use of anticoagulant; Translations: [terminal block assembler (current) use of 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]86-03-6267FhueljepGsvje aftercare (3 sources)H/O: high risk medication; Translations: [Other emt intermediate (current) drug therapy]67-86-7783WlrnomdhXbfpo circulatory disease (20 sources)Presence of other cardiac implants and grafts; Translations: [Other specified cardiac device in situ]Onset: 446774-77-6867QpujssmKyszf circulatory disease (9 sources)History of cerebrovascular accident without residual deficits; Translations: [Personal history of transient ischemic attack (TIA), and cerebral infarction without residual deficits]EpisodicOther circulatory disease (1 source)Orthostatic hypotensionEpisodicOther circulatory disease (20 sources)Low blood pressure; Translations: [Hypotension, unspecified] 07-08-5119QyeidsgzPpgru connective tissue disease (20 sources)History of total knee arthroplasty; Translations: [Presence of right artificial knee joint]ChronicOther connective tissue disease (20 sources)Artificial knee joint present; Translations: [Presence of right artificial knee joint]ChronicOther connective tissue disease (20 sources)Presence of left artificial hip joint; Translations: [Hip joint replacement]Onset: 08-17-2021 Resolved: 43-23-9229FblmebbMfuyp connective tissue disease (19 sources)Hip joint prosthesis present; Translations: [Presence of left artificial hip joint]ChronicOther connective tissue disease (20 sources)Polymyalgia rheumatica; Translations: [Polymyalgia rheumatica]Onset: 780191-50-3761MbdzpztNahai connective tissue disease (4 sources)Polymyalgia rheumatica; Translations: [PMR (polymyalgia rheumatica) (HCC)]Onset: 25-13-4893YcvzgbjFublo connective tissue disease (20 sources)History of total hip arthroplasty; Translations: [Presence of left artificial hip joint]86-32-0990ClrajxnSokuj connective tissue disease (20 sources)Presence of right artificial hip joint; Translations: [Total hip replacement Prosthesis]Onset: 13-12-0595TsybtaiFdwei connective tissue disease (1 source)Presence of left artificial knee jointChronicOther connective tissue disease (20 sources)History of revision of left total hip arthroplasty; Translations: [Presence of left artificial hip joint]36-41-9730VhanxwhQvihm connective tissue disease (20 sources)History of total replacement of right hip joint; Translations: [Presence of right artificial hip joint]73-27-1680DorogxcXvyrd connective tissue disease (3 sources)Myalgia, unspecified site; Translations: [MYALGIA UNSPECIFIED SITE] Onset: 62-68-6522MfsrhnhyAonog connective tissue disease (20 sources)Pain of bilateral hands; Translations: [Pain in right hand]Onset: 464737-74-2139NfavpifkRpdma connective tissue disease (20 sources)Swelling of hand; Translations: [Other specified soft tissue disorders]Onset: 266409-55-4884NrnkhzkiNdtfm connective tissue disease (1 source)Pain in left lower legEpisodicOther connective tissue disease (18 sources)Disorder of rotator cuff; Translations: [Unspecified rotator cuff tear or rupture of right shoulder, not specified as traumatic]87-51-3056Alusjxfi Other connective tissue disease (1 source)Biceps tendinitis; Translations: [Bicipital tendinitis, right shoulder]67-93-8767ShkegjhjYhper connective tissue disease (20 sources)Bicipital tendinitis, right shoulder; Translations: [Bicipital tenosynovitis]94-54-3130UgmtjjlqDaqah connective tissue disease (5 sources)Unspecified rotator cuff tear or rupture of right shoulder, not specified as traumatic; Translations: [Disorders of bursae and tendons in shoulder region, unspecified]53-23-5744ZuitmuvaBdadd connective tissue disease (1 source)Bilateral weakness of upper limbs; Translations: [Other symptoms and signs involving the musculoskeletal system]37-32-2836GervoufeQjvmc connective tissue disease (12 sources)Other symptoms and signs involving the musculoskeletal system; Translations: [Other musculoskeletalsymptoms referable to limbs]Onset: 602192-94-2336KrlkxfecMkzbz connective tissue disease (7 sources)Hand pain; Translations: [Pain in left hand]69-00-4317RpzgdgyvZfkft connective tissue disease (4 sources)Pain of left hand; Translations: [Pain in left hand]08-04-2024 EpisodicOther connective tissue disease (20 sources)Trochanteric bursitis; Translations: [Trochanteric bursitis, right hip]48-30-6807KrowhnmzXfqpq disorders of stomach and duodenum (1 source)Disorder of function of stomach; Translations: [Dyspepsia and other specified disorders of functionof stomach]EpisodicOther fractures (16 sources)Fracture of rib; Translations: [Fracture of one rib, unspecified side, initial encounter for closedfracture]50-42-5095HswdrdvgWtcpi gastrointestinal disorders (20 sources)Irritable bowel syndrome; Translations: [Irritable bowel syndrome without diarrhea]ChronicOther gastrointestinal disorders (2 sources)Irritable bowel syndrome with diarrhea; Translations: [Irritable bowel syndrome with diarrhea]Onset: 94-43-2294BcaxegvGsrid gastrointestinal disorders (20 sources)Swallowing painful; Translations: [Dysphagia, unspecified]Episodic Other gastrointestinal disorders (1 source)Dysphagia, unspecifiedEpisodicOther gastrointestinal disorders (4 sources)Personal history of other diseases of the digestive system; Translations: [Personal history of other diseases of digestive system]11-19-2023 EpisodicOther hematologic conditions (17 sources)Macrocytosis; Translations: [Other specified diseases of blood and blood-forming organs]ChronicOther hematologic conditions (13 sources)Other specified diseases of blood and blood-forming organs; Translations: [Other specified diseasesof blood and blood-forming organs]Onset: 79-99-1292SzlntreRiiti hematologic conditions (20 sources)Macrocytosis - no anemia; Translations: [Other specified diseases of blood and blood-forming organs]77-78-5643PlubbfyLoiwb hematologic conditions (8 sources)ESR raised; Translations: [Elevated erythrocyte sedimentation rate] 84-12-6926KnemzcohEsafh hematologic conditions (1 source)Elevated erythrocyte sedimentation rate; Translations: [Elevated sed rate]Onset: 55-85-2484KkupagztFtysf injuries and conditions due to external causes (2 sources)History of fall; Translations: [History of falling]EpisodicOther injuries and conditions due to external causes (2 sources)Systemic inflammatory response syndrome; Translations: [Systemic inflammatory response syndrome (SIRS) of non-infectious origin without acute organ dysfunction]67-02-9706QdgihispOlcer injuries and conditions due to external causes (2 sources)Systemic inflammatory response syndrome (SIRS) of non-infectious origin without acute organ dysfunction; Translations: [Systemic inflammatory response syndrome, unspecified]52-11-2303UkgovgsaJgxcz injuries and conditions due to external causes (20 sources)Contusion; Translations: [Other injury of unspecified body region, initial encounter]96-11-2741UevwlbulTtsaz liver diseases (1 source)Finding of creatine kinase level; Translations: [Abnormal levels of other serum enzymes]41-40-8612LdostturOtwia liver diseases (1 source)Enzyme level - finding; Translations: [Abnormal levels of other serum enzymes]64-27-4720QvkncfigRdpap lower respiratory disease (20 sources)Cough; Translations: [Cough]59-84-8463ZervdehiJdekx male genital disorders (8 sources)Erectile dysfunction co-occurrent and due to arterial insufficiency; Translations: [Erectile dysfunction due to arterial insufficiency]ChronicOther male genital disorders (1 source)Erectile dysfunction due to arterial insufficiencyChronicOther male genital disorders (1 source)Impotence of organic origin; Translations: [Impotence of organic origin]Onset: 58-18-4659CminqfhNuyvh nervous system disorders (20 sources)Chronic pain; Translations: [Other chronic pain]60-69-9479Uqswljw Other nervous system disorders (10 sources)Other chronic pain; Translations: [Other chronic pain G89.29]Onset: 01-05-2021 Resolved: 51-66-0229BsankmeYvxmw non-traumatic joint disorders (20 sources)Derangement of left shoulder joint; Translations: [Other specific joint derangements of left shoulder, not elsewhere classified]25-99-5372Kvbmoqi Other non-traumatic joint disorders (4 sources)Other specific joint derangements of left shoulder, not elsewhere classifiedChronicOther non-traumatic joint disorders (20 sources)Rotator cuff arthropathy of left shoulder; Translations: [Other specific arthropathies, not elsewhere classified, left shoulder]Onset: 382934-07-0428GuzfxzyWdsdg non-traumatic joint disorders (1 source)Other specific arthropathies, not elsewhere classified, left shoulder; Translations: [Rotator cuff arthropathy of left shoulder]Onset: 01-05-2023 ChronicOther non-traumatic joint disorders (5 sources)Pain in right hip; Translations: [Right hip pain M25.551]Onset: 01-05-2021 Resolved: 21-85-1218JlujgfynXuczv non-traumatic joint disorders (1 source)Pain in left shoulderEpisodicOther non-traumatic joint disorders (1 source)Pain in right shoulderEpisodicOther non-traumatic joint disorders (2 sources)Arthralgia of the lower leg; Translations: [Pain in right knee] EpisodicOther non-traumatic joint disorders (2 sources)Pain in unspecified jointEpisodicOther non-traumatic joint disorders (20 sources)Pain in right knee; Translations: [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, lower leg]Onset: 004592-57-4732LdqcreggZqvlw non-traumatic joint disorders (8 sources)Hip pain; Translations: [Pain in right hip]Onset: 01-05-2023 75-82-0903KvhyduztOpojc non-traumatic joint disorders (1 source)Swollen knee region; Translations: [Effusion, right knee]09-26-2024 EpisodicOther non-traumatic joint disorders (1 source)Effusion, right knee; Translations: [Bilateral knee swelling]Onset: 11-03-7854XhinwvtsKnmqn non-traumatic joint disorders (1 source)Effusion, left knee; Translations: [Bilateral knee swelling]Onset: 99-55-1693XqjdzzwqBefnl nutritional; endocrine; and metabolic disorders (20 sources)Obese class II; Translations: [Body mass index (BMI) 36.0-36.9, adult]Onset: 81-02-7764RzatawoJoyvb nutritional; endocrine; and metabolic disorders (16 sources)Severe obesity; Translations: [Morbid (severe) obesity due to excess calories]Onset: 658667-70-9895BvwiaymXyaec nutritional; endocrine; and metabolic disorders (20 sources)Body mass index 30+ - obesity; Translations: [Body mass index (BMI) 36.0-36.9, adult]Onset: 04-07-2016 Resolved: 276907-32-8495MdxsbjyAishd nutritional; endocrine; and metabolic disorders (1 source)Morbid (severe) obesity due to excess caloriesChronicOther nutritional; endocrine; and metabolic disorders (1 source)Body mass index (BMI) 36.0-36.9, adultChronicOther nutritional; endocrine; and metabolic disorders (2 sources)Simple obesity ; Translations: [Other obesity due to excess calories] Onset: 94-68-6292FerehqvBrlzu nutritional; endocrine; and metabolic disorders (3 sources)Obese class I; Translations: [Body mass index (BMI) 34.0-34.9, adult] Onset: 80-08-5564IzybffvXtkaw nutritional; endocrine; and metabolic disorders (2 sources)Obesity; Translations: [Obesity, unspecified]ChronicOther nutritional; endocrine; and metabolic disorders (20 sources)Hypomagnesemia; Translations: [Hypomagnesemia]17-19-7452PcpaueqJaezn nutritional; endocrine; and metabolic disorders (1 source)HypomagnesemiaChronicOther nutritional; endocrine; and metabolic disorders (2 sources)Obesity, unspecified; Translations: [Obesity, unspecified]Onset: 13-02-7488QelvcbqRgovt nutritional; endocrine; and metabolic disorders (2 sources)Body mass index (BMI) 32.0-32.9, adult; Translations: [Body mass index (BMI) 32.0-32.9, adult]Onset: 45-30-2654LdczltgNqgyl nutritional; endocrine; and metabolic disorders (2 sources)Body mass index (BMI) 35.0-35.9, adult; Translations: [Body mass index (BMI) 35.0-35.9, adult]Onset: 84-77-0217ThyqqdkTjbgu nutritional; endocrine; and metabolic disorders (4 sources)Hyperuricemia; Translations: [Hyperuricemia without signs of inflammatory arthritis and tophaceous disease]41-49-9310VzbslsxoOuqmc nutritional; endocrine; and metabolic disorders (1 source)Hyperuricemia without signs of inflammatory arthritis and tophaceous disease; Translations: [Hyperuricemia]Onset: 35-47-1621SmqrodxjMigom upper respiratory disease (12 sources)Seasonal allergic rhinitis; Translations: [Other seasonal allergic rhinitis]ChronicOther upper respiratory disease (20 sources)Hoarse; Translations: [Dysphonia]EpisodicOther upper respiratory disease (1 source)DysphoniaEpisodicResidual codes; unclassified (20 sources)Obstructive sleep apnea syndrome; Translations: [Obstructive sleep apnea (adult) (pediatric)]32-48-6947YrljedbXxqrepiq codes; unclassified (9 sources)Obstructive sleep apnea (adult) (pediatric); Translations: [Obstructive sleep apnea (adult)(pediatric)]Onset: 15-61-5038HncrdelAduhpchu codes; unclassified (2 sources)Insomnia; Translations: [Insomnia, unspecified]EpisodicResidual codes; unclassified (14 sources)Never smoked tobacco; Translations: [Other specified health status] Onset: 870030-83-0580OjuopnnvBhoowbokex arthritis and related disease (20 sources)Inflammatory polyarthropathy; Translations: [Inflammatory polyarthropathy]ChronicSepticemia (except in labor) (2 sources)Sepsis; Translations: [Sepsis, unspecified organism]08-30-2023 EpisodicSkin and subcutaneous tissue infections (12 sources)Cellulitis of lower limb; Translations: [Cellulitis of left lower limb]EpisodicSpondylosis; intervertebral disc disorders; other back problems (20 sources)Lumbar spondylosis; Translations: [Spondylosis without myelopathy or radiculopathy, lumbar region]Onset: 12-19-2017 Resolved: 56-70-5007PzlgelhYwhkoeosiex; intervertebral disc disorders; other back problems (20 sources)Cervicalgia; Translations: [Spinal stenosis of lumbar region]Onset: 66-34-4436ShqliqrvLhowwbn and strains (20 sources)Strain of muscle(s) and tendon(s) of the rotator cuff of left shoulder, initial encounter; Translations: [Strain of muscle of right shoulder] Onset: 07-45-9784QusbkhbbZkynfsliaco injury; contusion (20 sources)Contusion of shoulder region; Translations: [Contusion of left shoulder, initial encounter]50-94-8071SfchgevvEmwsrirf lupus erythematosus and connective tissue disorders (1 source)Autoimmune disease; Translations: [Autoimmune disease, not elsewhere classified]Onset: 30-15-8240JvjxrqqQqfneur disorders (20 sources)Hypothyroidism; Translations: [Hypothyroidism, unspecified]Onset: 603950-85-2484WwmwiuhWdlcsnsfq cerebral ischemia (16 sources)Vertebrobasilar territory transient ischemic attack; 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]Onset: 680936-91-9387DfghwnxVbywrjqyhcac (1 source)Long-term current use of drug therapy; Translations: [Long-term (current) use of other medications]Onset: 27-15-9313Qvhnwxuipdbc (9 sources)Other persistent atrial fibrillation; Translations: [Other persistent atrial fibrillation]Onset: 38-19-9975Dvujhabfgmnp (1 source)Hospital Follow-upOnset: 35-53-1872Cnosbfjrxgxe (1 source)Chronic atrial fibrillation, unspecified; Translations: [Chronic atrial fibrillation, unspecified]Onset: 71-32-7146Uixnbdoeoeyx (20 sources)A [facility] screening has identified you as FRAIL [...] Four Ways to Beat the Frailty Risk [email or web address] (1 source)Chronic bilateral low back pain without sciatica; Translations: [Chronic bilateral low back pain without sciatica]Onset: 47-03-4964Fratajobsajp (20 sources)Post hospital appointment. Please call to reschedule if needed. Unclassified (7 sources)You have been scheduled for a follow up appointment for the following date and time, please call to reschedule if needed.Unclassified (20 sources)EKG - we will call you with appointmentUnclassified (1 source)Right leg vtcijscf84-84-9310Grpuo infection (2 sources)Molluscum contagiosum infection; Translations: [Molluscum contagiosum]Episodic Past or Other Problems Problem ClassificationProblemDateDocumented DateEpisodic/ChronicAcute and unspecified renal failure (20 sources)Acute renal failure syndrome; Translations: [Acute kidney failure, unspecified]Onset: 494323-32-0098XuaeaevbWperjoczb and vision defects (20 sources)Blurring of visual image; Translations: [Other visual disturbances] Onset: 943817-19-3999EomtxgdnRwmymhgmbv associated with dizziness or vertigo (10 sources)Benign paroxysmal positional vertigo; Translations: [Benign paroxysmal vertigo, left ear]Onset: 349416-30-0731BezyyiubDrenujyyav disorders (6 sources)Esophageal disorders; Translations: [Gastro-esophageal reflux disease with esophagitis, without bleeding]Onset: 15-21-0760Vnoythgeglvxb and screening for infectious disease (20 sources)Vaccination given; Translations: [Encounter for immunization]Onset: 658763-61-9637VrxesxjtYrowxqw and fatigue (3 sources)Other fatigue; Translations: [Malaise and fatigue]Onset: 02-02-2016 EpisodicNonspecific chest pain (20 sources)Chest pain; Translations: [Chest pain, unspecified]Onset: 09-29-2024 75-17-8985LtqoslxhRlsuh aftercare (1 source)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 block assembler (current) use of 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; Translations: [assisted current use of 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]Onset: 64-98-6415XfujipysIfdlf circulatory disease (1 source)Hypotension, unspecified; Translations: [Hypotension, unspecified] Onset: 14-64-8521QbcpzdfvGcods connective tissue disease (3 sources)Pain in right hand; Translations: [Bilateral hand pain]Onset: 09-12-2021 Resolved: 76-39-0245GxpzmlceNdgla connective tissue disease (1 source)Rupture of tendon of biceps, long head; Translations: [Nontraumatic rupture of tendons of biceps (long head)]Onset: 56-18-5631PvdurljaErnat connective tissue disease (2 sources)Nontraumatic rupture of rotator cuff of left shoulder; Translations: [Unspecified rotator cuff tearor rupture of left shoulder, not specified as traumatic]Onset: 28-09-5239ZgopqszmHozkj connective tissue disease (9 sources)Pain in left hand; Translations: [Pain in limb]Onset: 01-05-2023 71-20-0717HiweqskeUsgsy connective tissue disease (1 source)Other specified soft tissue disorders; Translations: [Bilateral hand swelling]Onset: 50-84-3190FejrsouvXfjcn gastrointestinal disorders (1 source)Diarrhea; Translations: [Diarrhea]Onset: 84-44-8268ArxrkcbhAdkaj male genital disorders (2 sources)Hemospermia; Translations: [Hematospermia]Onset: 77-40-3854Sjjdcfxz Other non-traumatic joint disorders (19 sources)Swelling of knee joint; Translations: [Effusion, unspecified knee] Onset: 57-06-2992LyauzlweLtptw non-traumatic joint disorders (4 sources)Pain in left hip; Translations: [Left hip pain M25.552]Onset: 01-05-2021 Resolved: 13-88-4323MweebdwiOojqj non-traumatic joint disorders (4 sources)Shoulder joint pain; Translations: [Pain in right shoulder]Onset: 59-70-4515EqsyiralZhixc non-traumatic joint disorders (13 sources)Pain in right hip joint; Translations: [Pain in right hip]Onset: 322641-74-8635GczueptjHyojf non-traumatic joint disorders (2 sources)Pain in left knee; Translations: [Chronic pain of both knees]Onset: 75-81-5583SojojgmzXsesh screening for suspected conditions (not mental disorders or infectious disease) (20 sources)Screening status; Translations: [Encounter for screening for malignant neoplasm of colon]Onset: 06-14-2018 Resolved: 80-36-4149GwpdsgiuJuccaaus codes; unclassified (3 sources)Other specified health status; Translations: [Other specified conditions influencing health status]Onset: 34-69-9987CrfevgegUjdydtc (20 sources)Near syncope; Translations: [Syncope and collapse]Onset: 09-30-2024 61-20-8694UhprwehdBprobyhjxezw (9 sources)Onset: 12-19-2023 Resolved: Viral infection (1 source)COVID-19 Results Test NameValueInterpretationReference RangeFacilityBlood type and Indirect antibody screen panel (Bld)on 93-92-5581OMD group Nom (Bld)[facility] HospitalBlood group antibody screen QlNegativeDetwiler Memorial Hospital Ag Ql (Bld)PositiveUnRiverside Methodist HospitalABO group Nom (Bld)ANoChildren's Hospital for RehabilitationComment on above:Performed By: #### 29948-7 #### RAPHAEL Blanco ([id number]) [facility] ([facility]) [address] [place], [place] [address]Lawiq group antibody screen QlNegativeNoChildren's Hospital for RehabilitationComment on above:Performed By: #### 99919-1 #### RAPHAEL Blanco ([id number]) [facility] ([facility]) [address] [place], [place] [address]B Ag Ql (Bld)PositiveNoChildren's Hospital for RehabilitationComment on above:Performed By: #### 72007-2 #### RAPHAEL Blanco ([id number]) [facility] ([facility]) [address] [place], [place] [address]PKY W Auto Differential panel (Bld)on 96-15-4717Llknlbwgw (Bld) [#/Vol]0.02 10*3/TriHealthBasophils/100 WBC (Bld)0.3 %0.0 - 2.0 %[facility] ColumbusEosinophils (Bld) [#/Vol] 0.03 10*3/TriHealthEosinophils/100 WBC (Bld)0.4 %0.0 - 6.0 %[facility] Hospital [facility] ColumbusErythrocyte distribution width (RBC) [Ratio]13.6 %11.5 - 14.5 %[facility] ColumbusHematocrit (Bld) [Volume fraction]39.0 %Low41.0 - 52.0 %[facility] Hemoglobin (Bld) [Mass/Vol]14.1 g/dL13.5 - 17.5 g/dLUnSumma Health Barberton CampusImmaselect medical specialty hospital [facility] granulocytes (Bld) [#/Vol]0.13 10*3/[facility]HealthImparkland health center granulocytes/100 WBC (Bld)1.9 %High0.0 - 0.9 %[facility] ColumbusComment on above:Immature Granulocyte Count (IG) includes promyelocytes, myelocytes and metamyelocytes but does not include bands. Percent differential counts (%) should be interpreted in the context of the absolute c ell counts (cells/UL).Interpretation and review of laboratory resultsAbnormal [facility] ColumbusLymphocytes (Bld) [#/Vol]1.14 10*3/uLLow [facility] ColumbusLymphocytes/100 WBC (Bld)16.3 %13.0 - 44.0 % [facility] ColumbusMCH (RBC) [Entitic mass]36.4 fiGoxt83.0 - 34.0 pgUnSumma Health Barberton CampusMCHC (RBC) [Mass/Vol]36.2 g/dJYgxm21.0 - 36.0 g/dLOhioHealth Mansfield HospitalV (RBC) [Entitic vol]101 cPXnsq84 - 100 fLUniBarnesville HospitalMonocytes (Bld) [#/Vol]0.54 10*3/TriHealthMonocytes/100 WBC (Bld)7.7 %2.0 - 10.0 %[facility] ColumbusNeutrophils (Bld) [#/Vol]5.14 10*3/TriHealthComascension borgess [facility] on above:Percent differential counts (%) should be interpreted in the context of the absolute cell counts (cells/uL). Neutrophils/100 WBC (Bld)73.4 %40.0 - 80.0 %[facility] Nucleated RBC/100 WBC (Bld) [Ratio]0.0 %[facility] Platelets (Bld) [#/Vol]115 10*3/TriHealthRBC (Bld) [#/Vol]3.87 10*6/TriHealthWBC (Bld) [#/Vol]7.0 10*3/TriHealthUnSumma Health Barberton Campus Basophils (Bld) [#/Vol]0.02 x10*3/uLNormal0.00-0.10[facility] Geneva Medical CenterComment on above:Performed By: #### 50406-7 #### RAPHAEL Blanco ([id number]) [facility] ([facility]) [address] [place], [place] [address]Nkswskxql/100 WBC (Bld)0.3 %Normal0.0-2.0University [facility] Geneva Medical CenterComment on above:Performed By: #### 00875-3 #### RAPHAEL Blanco ([id number]) [facility] ([facility]) [address] [place], [place] [address]Kfsnnjohgpr (Bld) [#/Vol]0.03 x10*3/uLNormal0.00-0.70 [facility] Geneva Medical CenterComment on above:Performed By: #### 89577-8 #### RAPHAEL Blanco ([id number]) [facility] ([facility]) [address] [place] [address]Auimjrlumrn/100 WBC (Bld)0.4 %Normal0.0-6.0UnKettering Memorial HospitalComment on above:Performed By: #### 34488-6 #### RAPHAEL Blanco ([id number]) [facility] ([facility]) [address] [place] [address]Izufbicumqh distribution width (RBC) [Ratio]13.6 %Normal 11.5-14.5UnKettering Memorial HospitalComment on above:Performed By: #### 05538-4 #### RAPHAEL Blanco ([id number]) [facility] ([facility]) [address] [place] [address]Dmxossrlom (Bld) [Volume fraction]39.0 %Low41.0-52.0 [facility] Geneva Medical CenterComment on above:Performed By: #### 37390-7 #### RAPHAEL Blanco ([id number]) [facility] ([facility]) [address] [place] [address]Szvnrjotnb (Bld) [Mass/Vol]14.1 g/eJYjwgeb82.5-17.5UnKettering Memorial HospitalComment on above:Performed By: #### 56637-5 #### RAPHAEL Blanco ([id number]) [facility] ([facility]) [address] [place] [address]Tpqaadvl granulocytes (Bld) [#/Vol]0.13 x10*3/uLNormal 0.00-0.70UnKettering Memorial HospitalComment on above:Performed By: #### 03789-3 #### RAPHAEL Blanco ([id number]) [facility] ([facility]) [address] [place] [address]Qpvpslxw granulocytes/100 WBC (Bld)1.9 %High0.0-0.9[facility] Geneva Medical CenterComment on above:Result Comment: Immature Granulocyte Count (IG) includes promyelocytes, myelocytes and metamyelocytes but does not include bands. Percent differential counts (%) should be interpreted in the context of the absolute cell counts (cells/UL).Performed By: #### 88114-2 #### RAPHAEL Blanco ([id number]) [facility] ([facility]) [address] [place], [place] [address]Zhoownvdlck (Bld) [#/Vol]1.14 x10*3/uLLow1.20-4.80UnKettering Memorial HospitalComment on above:Performed By: #### 51463-5 #### RAPHAEL Blanco ([id number]) [facility] ([facility]) [address] [place], [place] [address]Kcjjhmeqhvd/100 WBC (Bld)16.3 %Wpldaz54.0-44.0UnKettering Memorial HospitalComment on above:Performed By: #### 83514-4 #### RAPHAEL Blanco ([id number]) [facility] ([facility]) [address] [place], [place] [address]IFT (RBC) [Entitic mass]36.4 guTvef31.0-34.0UnKettering Memorial HospitalComment on above:Performed By: #### 14450-5 #### RAPHAEL Blanco ([id number]) [facility] ([facility]) [address] [place], [place] [address]OXRV (RBC) [Mass/Vol]36.2 g/qYRsus41.0-36.0UnKettering Memorial HospitalComment on above:Performed By: #### 24617-8 #### RAPHAEL Blanco ([id number]) [facility] ([facility]) [address] [place], [place] [address]LYS (RBC) [Entitic vol]101 mDEgkz41-802MokifsoowzKettering Memorial HospitalComment on above:Performed By: #### 61066-5 #### RAPHAEL Blanco ([id number]) [facility] ([facility]) [address] [place], [place] [address]Zgtshdjas (Bld) [#/Vol]0.54 x10*3/uLNormal0.10-1.00UnKettering Memorial HospitalComment on above:Performed By: #### 36093-8 #### RAPHAEL Blanco ([id number]) [facility] ([facility]) [address] [place], [place] [address]Sjzxgplks/100 WBC (Bld)7.7 %Normal2.0-10.0UnKettering Memorial HospitalComment on above:Performed By: #### 39700-2 #### RAPHAEL Blanco ([id number]) [facility] ([facility]) [address] [place] [address]Lwherlozdkl (Bld) [#/Vol]5.14 x10*3/uLNormal1.20-7.70 [facility] Geneva Medical CenterComment on above:Result Comment: Percent differential counts (%) should be interpreted in the context of the absolute cell counts (cells/uL).Performed By: #### 19500-0 #### RAPHAEL Blanco ([id number]) [facility] ([facility]) [address] [place], [place] [address]Tadhbvkejek/100 WBC (Bld)73.4 %Hiyybg16.0-80.0UnKettering Memorial HospitalComment on above:Performed By: #### 44588-9 #### RAPHAEL Blanco ([id number]) [facility] ([facility]) [address] [place], [place] [address]Omalcuhpe RBC/100 WBC (Bld) [Ratio]0.0 /100 WBCsNormal0.0-0.0 [facility] Geneva Medical CenterComment on above:Performed By: #### 94767-0 #### RAPHAEL Blanco ([id number]) [facility] ([facility]) [address] [place], [place] [address]Ybogauhoc (Bld) [#/Vol]115 x10*3/kJQbq898-484HldtjthubvKettering Memorial HospitalComment on above:Performed By: #### 72889-6 #### RAPHAEL Blanco ([id number]) [facility] ([facility]) [address] [place] [address]WJT (Bld) [#/Vol]3.87 x10*6/uLLow4.50-5.90UnKettering Memorial HospitalComment on above:Performed By: #### 46461-0 #### RAPHAEL Blanco ([id number]) [facility] ([facility]) [address] [place] [address]QSJ (Bld) [#/Vol]7.0 x10*3/uLNormal4.4-11.3UnKettering Memorial HospitalComment on above:Performed By: #### 46340-2 #### RAPHAEL Blanco ([id number]) [facility] ([facility]) [address] [place] [address] 311[address]Krjfzpisxus tissue factor inducedon 42-58-8724SB Coag (PPP) [Time]11.0 sNormal9.8-12.4UnKettering Memorial HospitalComment on above:Performed By: #### 5902-2 #### RAPHAEL Blanco ([id number]) [facility] ([facility]) [address] [place] [address] 57[address]Mchtyvseugxfm metabolic 2000 panelon 73-87-6275Djkeskr BCP dye [Mass/Vol]4.0 g/dL3.4 - 5.0 g/dLUnSumma Health Barberton CampusALP [Catalytic activity/Vol]66 U/L33 - 136 U/[facility] HospitalALT With P-5'-P [Catalytic activity/Vol]22 U/L10 - 52 U/[facility] HospitalComment on above:Patients treated with Sulfasalazine may generate falsely decreased results for ALT.Anion gap [Moles/Vol]13 mmol/L10 - 20 mmol/L [facility] ColumbusAST With P-5'-P [Catalytic activity/Vol]18 U/L9 - 39 U/[facility] HospitalBilirubin [Mass/Vol]1.2 mg/dL0.0 - 1.2 mg/dLUnSumma Health Barberton CampusCalcium [Mass/Vol]9.2 mg/dL8.6 - 10.6 mg/dLUnSumma Health Barberton CampusChloride [Moles/Vol]103 mmol/L98 - 107 mmol/[facility] HospitalCO2 [Moles/Vol]25 mmol/L21 - 32 mmol/L [facility] ColumbusCreatinine [Mass/Vol]0.73 mg/dL0.50 - 1.30 mg/dLUnSumma Health Barberton CampuseGFR- PINFUniBarnesville HospitalComment on above:Calculations of estimated GFR are performed using the 2020 CKD-EPI Study Refit equation without therace variable for the IDMS- Traceable creatinine methods. https://jasn.asnjournals.org/content/early//ASN.6317206152 Glucose [Mass/Vol]169 mg/uQWdgf82 - 99 mg/dLUnSumma Health Barberton Campus Interpretation and review of laboratory resultsAbnoalUBlanchard Valley Health System Blanchard Valley HospitalPotassium [Moles/Vol]3.7 mmol/L3.5 - 5.3 mmol/[facility] HospitalProtein [Mass/Vol]6.3 g/dLLow6.4 - 8.2 g/dLUnSumma Health Barberton CampusSodium [Moles/Vol]137 mmol/L136 - 145 mmol/[facility] HospitalUrea nitrogen [Mass/Vol]17 mg/dL6 - 23 mg/dLUnSumma Health Barberton CampusUnSumma Health Barberton CampusAlbumin BCP dye [Mass/Vol]4.0 g/dL Normal3.4-5.0UnKettering Memorial HospitalComment on above: Performed By: #### 05015-3 #### RAPHAEL Blanco ([id number]) [facility] ([facility]) [address] [place] [address]BRU [Catalytic activity/Vol]66 U/XBtfzdw39-534CxpakeosqxKettering Memorial HospitalComment on above:Performed By: #### 66927-1 #### RAPHAEL Blanco ([id number]) [facility] ([facility]) [address] [place] [address]SER With P-5'-P [Catalytic activity/Vol]22 U/AAvhxls15-66 [facility] Geneva Medical CenterComment on above:Result Comment: Patients treated with Sulfasalazine may generate falsely decreased results for ALT.Performed By: #### 17513-4 #### RAPHAEL Blanco ([id number]) [facility] ([facility]) [address] [place], [place] [address]Lcohr gap [Moles/Vol]13 mmol/NUesjbx96-29LzdntmzratKettering Memorial HospitalComment on above:Performed By: #### 41223-5 #### RAPHAEL Blanco ([id number]) [facility] ([facility]) [address] [place] [address]23[address]EOQ With P-5'-P [Catalytic activity/Vol]18 U/LNormal9-39 [facility] CenterComment on above:Performed By: #### 42565-2 #### RAPHAEL Blanco ([id number]) [facility] ([facility]) [address] [place] [address] 479[address]Khcrtjpgg [Mass/Vol]1.2 mg/dLNormal0.0-1.2UnKettering Memorial HospitalComment on above:Performed By: #### 68410-1 #### RAPHAEL Blanco ([id number]) [facility] ([facility]) [address] [place] [address] 890[address]Ycoaxci [Mass/Vol]9.2 mg/dLNormal8.6-10.6UnKettering Memorial HospitalComment on above:Performed By: #### 99832-2 #### RAPHAEL Blanco ([id number]) [facility] ([facility]) [address] [place] [address] 757[address]Tmfbegwq [Moles/Vol]103 mmol/AJlpoks66-585TjuolslcavKettering Memorial HospitalComment on above:Performed By: #### 96754-2 #### RAPHAEL Blanco ([id number]) [facility] ([facility]) [address] [place] [address] 01292EJ7 [Moles/Vol]25 mmol/IBrbdyq90-84FsyxsgxfxuKettering Memorial HospitalComment on above:Performed By: #### 81124-9 #### RAPHAEL Blanco ([id number]) [facility] ([facility]) [address] [place] [address] 13906Eqshnumkog [Mass/Vol]0.73 mg/dLNormal0.50-1.30UnKettering Memorial HospitalComment on above:Performed By: #### 83141-7 #### RAPHAEL Blanco ([id number]) [facility] ([facility]) [address] [place] [address] 65395Phkghnztcu filtration rate>90Normal>60UnKettering Memorial HospitalComment on above:Result Comment: Calculations of estimated GFR are performed using the 2020 CKD-EPI Study Refit equation without the race variable for the IDMS-Traceable creatinine methods. https://jasn.asnjournals.org/content//ASN.4977602407Enrnivtkb By: #### 85768-9 #### RAPHAEL Blanco ([id number]) [facility] ([facility]) [address] [place] [address] 39531Umikptm [Mass/Vol]169 mg/mZAfpo76-13TwmzxxwbppKettering Memorial HospitalComment on above:Performed By: #### 03046-8 #### RAPHAEL Blanco ([id number]) [facility] ([facility]) [address] [place] [address] 26971Stcwfvaqg [Moles/Vol]3.7 mmol/LNormal3.5-5.3[facility] Geneva Medical CenterComment on above:Performed By: #### 38178-7 #### RAPHAEL Blanco ([id number]) [facility] ([facility]) [address] [place] [address] 68184Phrraxt [Mass/Vol]6.3 g/dLLow6.4-8.2[facility] Medical CenterComment on above:Performed By: #### 22976-6 #### RAPHAEL Blanco ([id number]) [facility] ([facility]) [address] [place], [place] [address]Rmsxbg [Moles/Vol]137 mmol/MXxjvrn856-879JjdgspjvgvUniversity Hospitals Geneva Medical CenterComment on above:Performed By: #### 73199-5 #### RAPHAEL Blanco ([id number]) [facility] ([facility]) [address] [place], [place] [address]Ioiv nitrogen [Mass/Vol]17 mg/dLNormal6-23[facility] Medical CenterComment on above:Performed By: #### 26652-3 #### RAPHAEL Blanco ([id number]) [facility] ([facility]) [address] [place], [place] [address]BIZ 12 leadOrdered By: Savana Meza on 01-30-2025Q Kdbkx558 [facility] Work Phone: [phone] Hyibm41uasrfDwjqmpnujgBarnesville Hospital Work Phone: [phone] Ktoljxkg409 [facility] Work Phone: [phone] Cpmggdwy238 [facility] Work Phone: [phone] Calculation(Maco)495 [facility] Work Phone: [phone] Uoojjotola744 [facility] Work Phone: [phone] Tkdi36sscetaeYubgmkukeaSumma Health Barberton Campus Work Phone: [phone] Kuwu296njeqlviXmvdjnvhwkSelect [facility] Work Phone: [phone] Mbblvk646 [facility] Work Phone: [phone] Fzbb214MIUCgvwdkyrxpRegency Hospital Cleveland East Work Phone: [phone] Work Phone: [phone] 12 leadon 50-04-5902Cpfwew fibrillation with rapid ventricular response Inferior infarct (cited on or before 29-JAN-2024) Abnormal ECG When compared with ECG of 29-JAN-2024 09:38, Atrial fibrillation has replaced Sinus rhythm Nonspecific T wave abnormality now evident in Inferior leads T wave inversion now evident in Lateral leads See ED provider note for full interpretation and clinical correlation Confirmed by Savana Meza ([id number]) on 01/30/2025 6:13:32 Savana Thrasher PA-C - 01/30/2025 Atrial fibrillation with rapid ventricular response Inferior infarct (cited on or before 29-JAN-2024) Abnormal ECG When compared with ECG of 29-JAN-2024 09:38, Atrial fibrillation has replaced Sinus rhythm Nonspecific T wave abnormality now evident in Inferior leads T wave inversion now evident in Lateral leads See ED provider note for full interpretation and clinical correlation Confirmed by Savana Meza ([id number]) on 01/30/2025 6:13:32 AM [facility] Work Phone: ecg 12-LEADon [phone] 12-LEADVentricular Rate 82 QRS Duration 114 Q-T Interval 398 QTC Calculation(Bazett) 464 R Holt 83 T Holt -16 QRS Count 13 Q Onset 211 T Offset 410 QTC Fredericia 441 Diagnosis Atrial fibrillation with a competing junctional pacemaker Nonspecific T wave abnormality Abnormal ECG When compared with ECG of 30-JAN-2025 02:19, Criteria for Inferior infarct are no longer Present See ED provider note for full interpretation and clinical correlation Confirmed by Savana Meza ([id number]) on 01/30/2025 7:48:49 [facility]EC[facility]-LEADVentricular Rate 102 QRS Duration 114 Q-T Interval 380 QTC Calculation(Bazett) 495 R Holt 10 T Holt 122 QRS Count 16 Q Onset 214 T Offset 404 QTC Fredericia 453 Diagnosis Atrial fibrillation with rapid ventricular response Inferior infarct (cited on or before 29-JAN-2024) Abnormal ECG When compared with ECG of 29-JAN-2024 09:38, Atrial fibrillation has replaced Sinus rhythm Nonspecific T wave abnormality now evident in Inferior leads T wave inversion now evident in Lateral leads See ED provider note for full interpretation and clinical correlation Confirmed by Savana Meza ([id number]) on 01/30/2025 6:13:32 AMNLake View Memorial HospitalMR INTERPRETATION OF OUTSIDE FILMSon 40-48-3745DA INTERPRETATION OF OUTSIDE FILMSInterpreted By: Nilson Mendez, STUDY: MR INTERPRETATION OF OUTSIDE FILMS; ; 01/30/2025 5:05 am INDICATION: Signs/Symptoms:Interpretation of outside film. 2nd opinion requested by the referring physician. Right lower extremity pain and weakness after epidural injection. COMPARISON: No prior cross-sectional evaluation of the lumbar spine is available at this institution at this time. ACCESSION NUMBER(S): [id number] ORDERING CLINICIAN: DIOGO MACIAS TECHNIQUE: Outside institution [...] Nilson Mendez 01/30/2025 9:54 AM Dictation workstation: [id number]'s Hospital for RehabilitationPT Coag (PPP) [Time]on 51-18-3933KCE Coag (PPP) [Relative time]1.0 {INR} 0.9 - 1.1UnSumma Health Barberton CampusInterpretation and review of laboratory resultsNoHenry County HospitalINR Coag (PPP) [Relative time]1.0Axcauk6.9-1.1[facility] Medical CenterComment on above:Performed By: #### 5902-2 #### RAPHAEL Blanco ([id number]) [facility] ([facility]) [address] [place], [place] [address]Ayynenz-JFPuv 10-20-0077IF Coag (PPP) [Time]11.0 [facility] HospitalAppearance of UrineOrdered By: PROVIDER TEMP on 01-29-2025 Appearance (U)ClearNormalClearVan Wert County HospitalComment on above: Order Comment: Name Collection Type:: Clean-Voided MidstreamPerformed By: #### UA ####[address] [address] [place] Basic Metabolic Panelon 04-22-7078Ongyatpuow Clr Calc Utaywjdm974.71NoPending sale to [facility] Health Physician GroupComment on above:Result Comment: PERFORMED BY: [facility] [address] [place] [id number] PATHOLOGIST [employer] RYAN ALMARAZ M.D.Performed By: #### CBC, BMP ####[address] [address] USAGFR/1.73 sq M.predicted MDRD (S/P/Bld) [Vol rate/Area]mL/min/{1.73_m2}NormalThe [facility]red[facility] Hospital Physician GroupComment on above:Performed By: #### CBC, BMP ####[address] [address] USABasophils [#/volume] in Blood by Automated count Ordered By: Winnie Grande on 13-44-0022Qetkmgovl (Bld) [#/Vol]0.1 10*3/uLNormal 0.0-0.2FBerger HospitalComment on above:Result Comment: PERFORMED BY: [facility] [address] [place] [address] PATHOLOGIST [employer] RYAN ALMARAZ M.D.Performed By: #### CBC, BMP ####[address] [address] USABasophils/100 leukocytes in Blood by Automated countOrdered By: Winnie Grande on 40-32-3334Flgqywfyv/100 WBC (Bld)0.7 %Normal.[facility] County HospitalComment on above:Performed By: #### CBC, BMP ####[place] [id number] USABilirubin Test strip Ql (U)Ordered By: PROVIDER TEMP on 84-02-4459Xouqdfbqg Ql (U)NegativeNegativeVan Wert County HospitalCalcium [Mass/volume] in Serum or PlasmaOrdered By: Winnieheriberto Grande on 62-50-6255Eavshmt [Mass/Vol]9.5 mg/dL Normal8.6-10.3FBerger HospitalComment on above:Performed By: #### CBC, BMP ####[place] [id number] USACarbon dioxide, total [Moles/volume] in Serum or PlasmaOrdered By: Winnie Grande on 26-48-6127EW1 [Moles/Vol]24.9 mmol/XTxhbjl33.0-31.0[facility] County HospitalComment on above:Performed By: #### CBC, BMP ####[place] [id number] [place] Chloride [Moles/volume] in Serum or PlasmaOrdered By: Winnie Grande on 01-29-2025 Chloride [Moles/Vol]104 mmol/JOvulxw18-627LnpwwecgaVan Wert County Hospital Comment on above:Performed By: #### CBC, BMP ####[place] [id number] USAColor of Urine by AutoOrdered By: PROVIDER TEMP on 49-48-4612Niedr (U)Light-yellowNormalYellowVan Wert County HospitalComment on above:Order Comment: Name Collection Type:: Clean- Voided MidstreamPerformed By: #### UA ####[place] [id number] USAComplete Blood Count Auto Diffon 01-29-2025 Mean Corpuscular HGB Conc35.2 g/fWFzsjhn11.5-35.6[facility] Comment on above:Performed By: #### CBC, BMP ####[address] [address] USAMonocytes/100 WBC (Bld)18.81 %Normal 0.00-20.00[facility] HospitalComment on above:Performed By: #### CBC, BMP ####[address] [address] [place] NRBC%0.1 /100{WBC}Normal0-0.5[facility] HospitalComment on above: Performed By: #### CBC, BMP ####[address] [address] USAWhite Blood Count7.7 [CFU]/mLNormal4.1-10.5The [facility] Behavioral HealthComment on above:Performed By: #### CBC, BMP ####[place] [id number] [place] Creatinine [Mass/volume] in Serum or PlasmaOrdered By: Winnie Grande on 29-24-9495Tcxapaqncu [Mass/Vol]0.81 mg/dLNormal0.70-1.30[facility] HospitalComment on above:Performed By: #### CBC, BMP ####[place] [address] USAEosinophils [#/volume] in Blood by Automated countOrdered By: Winnie Grande on 01-29-2025 Eosinophils (Bld) [#/Vol]0.0 10*3/uLNormal0.0-0.45[facility] HospitalComment on above:Performed By: #### CBC, BMP ####[address] [address] USAEosinophils/100 leukocytes in Blood by Automated countOrdered By: Winnie Grande on 03-02-3865Fejxyjnuwnx/100 WBC (Bld)0.3 %Normal.[facility] HospitalComment on above:Performed By: #### CBC, BMP ####[place] [id number] USAErythrocyte distribution width [Ratio] by Automated countOrdered By: Winnie Grande on 11-14-4801Heozuuyfuha distribution width (RBC) [Ratio]15.4 % High12.0-14.8[facility] County HospitalComment on above:Performed By: #### CBC, BMP ####[facility] [place] [address] USAErythrocytes [#/volume] in Blood by Automated countOrdered By: Winnie Grande on 86-48-7696QRD (Bld) [#/Vol]4.18 10*6/uLNormal3.90-5.60[facility] HospitalComment on above:Performed By: #### CBC, BMP ####[place] [address] [place] [address] USAGlomerular filtration rate [Volume Rate/Area] in Serum, Plasma or Blood by CreatinineOrdered By: Winnie Grande on 65-06-2783Svxlxsornz filtration rate [Volume Rate/Area] in Serum, Plasma or Blood by Creatinine> 60.0 mL/MinVan Wert County HospitalGlucose [Mass/volume] in Serum or PlasmaOrdered By: Winnie Grande on 34-63-1098Pmfouvl [Mass/Vol]145 mg/iBQskg56-414TewyftpsvVan Wert County Hospital Comment on above:ADA recommended reference rangeRandom Glucose Reference Range is dependent on time and content of last meal. Glucose of more than 200 mg/dL in a nonstressed, ambulatory subject supports the diagnosisof Diabetes Mellitus. Result Comment: Random Glucose Reference Range is dependent on time and content of last meal. Glucose of more than 200 mg/dL in a nonstressed, ambulatory subject supports the diagnosis of Diabetes Mellitus. ADA recommended reference rangePerformed By: #### CBC, BMP ####[place] [address] [place] [address] USAGlucose [Mass/volume] in Urine by Test stripOrdered By: SHAHID IZQUIERDO on 87-61-0347Yafjmjl Test strip (U) [Mass/Vol]>=1000 mg/dLACMC Healthcare System GlenbeighHematocrit [Volume Fraction] of Blood by Automated countOrdered By: Winnie Grande on 73-14-1535Eaelxofgky (Bld) [Volume fraction]43.6 %Zndzsi53.8-50.0[facility] HospitalComment on above:Performed By: #### CBC, BMP ####[place] [address] [place] [address] [facility] Hemoglobin Test strip Ql (U)Ordered By: PROVIDER TEMP on 02-19-1171Dzltgnesmc Ql (U)NegativeNegativeVan Wert County HospitalHemoglobin [Mass/volume] in BloodOrdered By: Winnie Grande on 66-47-8314Gibrpsntkp (Bld) [Mass/Vol]15.4 g/dL Lfqcxl04.0-17.0[facility] HospitalComment on above:Performed By: #### CBC, BMP ####[place] [address] [place] [address] USAKetones [Presence] in Urine by Test stripOrdered By: PROVIDER TEMP on 01-38-5505Dhuizmi Ql (U)1+NormalNegMcKitrick HospitalComment on above:Order Comment: Name Collection Type:: Clean-Voided MidstreamPerformed By: #### UA ####[address] [address] USALeukocyte esterase [Presence] in Urine by Test stripOrdered By: PROVIDER TEMP on 78-05-5471Jtigcwsbl esterase Test strip Ql (U)NegativeNormal NegativeVan Wert County HospitalComment on above:Order Comment: Name Collection Type:: Clean-Voided MidstreamPerformed By: #### UA ####[address] [address] USALeukocytes [#/volume] corrected for nucleated erythrocytes in Blood by Automated counOrdered By: Winnie Grande on 86-67-1807XXJ corrected for nucl RBC Auto (Bld) [#/Vol]7.7 10*3/uL4.1-10.5FBerger HospitalLeukocytes [#/volume] in Blood by Automated countOrdered By: Winnie Grande on 24-39-0069BDO (Bld) [#/Vol]7.7 10*3/uLNormal4.1-10.5FBerger HospitalComment on above:Performed By: #### CBC, BMP ####[address] [address] USALymphocytes [#/volume] in Blood by Automated countOrdered By: Winnie Grande on 84-38-2230Jewboieuhsh (Bld) [#/Vol]1.1 10*3/uLNormal1.00-4.8 [facility] HospitalComment on above:Performed By: #### CBC, BMP ####[address] [address] [place] Lymphocytes/100 leukocytes in Blood by Automated countOrdered By: Winnie Grande on 07-32-3876Nhvwucxtzap/100 WBC (Bld)14.4 %Normal.[facility] HospitalComment on above:Performed By: #### CBC, BMP ####[address] [address] [facility] [Entitic mass] by Automated countOrdered By: Winnie Grande on 76-56-1171ZZW (RBC) [Entitic mass] 36.7 umLmxp39.5-35.2FBerger HospitalComment on above:Performed By: #### CBC, BMP ####[address] [address] [facility]SAHC Auto (RBC) [Mass/Vol]Ordered By: Winnie Grande on 51-98-0250GFAT (RBC) [Mass/Vol]35.2 g/dL32.5-35.6FBerger HospitalMCV [Entitic volume] by Automated countOrdered By: Winnie Grande on 38-94-3242SGD (RBC) [Entitic vol]104.3 nZRsqn83.5-101[facility] HospitalComment on above:Performed By: #### CBC, BMP ####[address] [address] USAMonocyte distribution width [Entitic volume] in Blood by AutomatedOrdered By: Winnie Grande on 99-47-7816Hxuhlhco distribution width Auto (Bld) [Entitic vol]18.81 %0.00-20.00[facility] Monocytes [#/volume] in Blood by Automated countOrdered By: Winnie Grande on 02-91-5408Vgestdimc (Bld) [#/Vol]0.5 10*3/uLNormal0.0-0.8[facility] HospitalComment on above:Performed By: #### CBC, BMP ####[address] [address] USAMonocytes/100 leukocytes in Blood by Automated countOrdered By: Winnie Grande on 01-29-2025 Monocytes/100 WBC (Bld)6.3 %Normal.[facility] HospitalComment on above:Performed By: #### CBC, BMP ####[place] [address] USANeutrophils [#/volume] in Blood by Automated count Ordered By: Winnie Grande on 57-74-6193Svzgkyfdnhx (Bld) [#/Vol]6.0 10*3/uLNormal 1.8-7.7FBerger HospitalComment on above:Performed By: #### CBC, BMP ####[place] [address] [place] Neutrophils/100 leukocytes in Blood by Automated countOrdered By: Winnie Grande on 88-30-3005Zvpsrczaksu/100 WBC (Bld)78.3 %Normal.[facility] HospitalComment on above:Performed By: #### CBC, BMP ####[place] [id number] USANitrite Test strip Ql (U) Ordered By: SHAHID IZQUIERDO on 72-55-9358Ooohuxo Ql (U)NegativeNegativeVan Wert County HospitalNo Panel InformationOrdered By: Winnie Grande on 55-63-5550Hgmvlgmk Creatinine Clearance (Hqwo773.71[facility] County HospitalNucleated erythrocytes [Presence] in Blood by Automated countOrdered By: Winnie Grande on 36-26-8521Zfctihbyg RBC Auto Ql (Bld)0.1 /100{WBC}0-0.5Firelands Regional Medical CenterPlatelet mean volume [Entitic volume] in Blood by Automated countOrdered By: Winnie Grande on 50-49-3446Cyrvdcha mean volume (Bld) [Entitic vol]8.9 fLNormal6.6-10.1FBerger HospitalComment on above:Performed By: #### CBC, BMP ####[place] [address] [place] [address] USAPlatelets [#/volume] in Blood by Automated count Ordered By: Winnie Grande on 84-38-4189Whunxwtbn (Bld) [#/Vol]133 10*3/uLLow 150-450Van [facility] HospitalComment on above:Performed By: #### CBC, BMP ####[place] [address] [place] [address] [place] Potassium [Moles/volume] in Serum or PlasmaOrdered By: Winnie Grande on 32-02-7288Gapgiawxt [Moles/Vol]3.9 mmol/LNormal3.5-5.1FBerger HospitalComment on above:Hemolysis is present at a level that could interfere with the result.Contact lab if redraw is requiredResult Comment: Hemolysis is present at a level that could interfere with the result. Contact lab if redraw is requiredPerformed By: #### CBC, BMP ####[address] [address] USAProtein Test strip (U) [Mass/Vol]Ordered By: SHAHID IZQUIERDO on 17-00-6353Dbtlncv (U) [Mass/Vol] NegativeNegativeHolzer Health Systemerum or plasma anion gap determinationOrdered By: Winnie Grande on 27-04-4100Gvkpn gap [Moles/Vol]11.0 mmol/LNormal6.0-15.0[facility] HospitalComascension borgess le[facility] hospital on above:Performed By: #### CBC, BMP ####[place] [address] [place] [address] USASodium [Moles/volume] in Serum or PlasmaOrdered By: Winnie Grande on 44-17-8345Szkbys [Moles/Vol]136 mmol/ZSjqyvq637-748CjldanbfyVan Wert County HospitalComment on above:Performed By: #### CBC, BMP ####[place] [address] [place] [address] USASpecific gravity Test strip (U) [Rel density]Ordered By: PROVIDER TEMP on 78-98-7551Ghnbznjq gravity (U) [Rel density]1.0261.001-1.030[facility] HospitalType and Screenon 25-61-9908HBA and Rh group Nom (Bld)Blood group A Rh(D) positiveNoPending sale to [facility] Physician GroupComment on above:Result Comment: PERFORMED BY: [facility] [address] [place] [address] PATHOLOGIST [employer] RYAN ALMARAZ M.D.Urea nitrogen [Mass/volume] in Serum or PlasmaOrdered By: Winnie Grande on 29-92-3466Jtji nitrogen [Mass/Vol]19 mg/dLNormal7-[facility] HospitalComment on above:Performed By: #### CBC, BMP ####[place] [place] [address] [place] Urinalysison 97-11-0142Klerjbliw,UrineNegativeNormalNegativeThe [facility] Physician GroupComment on above:Order Comment: Name Collection Type:: Clean- Voided MidstreamPerformed By: #### UA ####[address] [address] USAGlucose Ql (U)>=NormalNormMorton Plant North Bay Hospital Physician GroupComment on above:Order Comment: Name Collection Type:: Clean- Voided MidstreamPerformed By: #### UA ####[address] [address] USANitrite,UrineNegativeNormalNegativeThe [facility] Physician GroupComment on above:Order Comment: Name Collection Type:: Clean-Voided MidstreamPerformed By: #### UA ####[address] [address] USAOccult Blood,UrineNegativeNormal NegativeThe [facility] Physician GroupComment on above:Order Comment: Name Collection Type:: Clean-Voided MidstreamResult Comment: PERFORMED BY: [place] [id number] PATHOLOGIST [employer] RYAN ALMARAZ M.D.Performed By: #### UA ####[place] [address] [place] [address] USAProtein,UrineNegativeNormalNegativeThe [facility] Physician GroupComment on above:Order Comment: Name Collection Type:: Clean-Voided MidstreamPerformed By: #### UA ####[place] [address] [place] [address] USASpecificy [place],Urine1.026Normal 1.001-1.030[facility] Physician GroupComment on above:Order Comment: Name Collection Type:: Clean-Voided MidstreamPerformed By: #### UA ####[address] [address] USAUrobilinogen,Urine NormalNormalNormalThe [facility] Physician GroupComment on above:Order Comment: Name Collection Type:: Clean-Voided MidstreamPerformed By: #### UA ####[address] [address] USAUrobilinogen Test strip (U) [Mass/Vol]Ordered By: PROVIDER TEMP on 29-73-1320Thpdzxbbwisn (U) [Mass/Vol]Normal mg/dLNormalVan Wert County HospitalpH of Urine by Test stripOrdered By: PROVIDER TEMP on 17-36-6229gT (U)5.0 [pH]Normal5.0-9.0 [facility] HospitalComment on above:Order Comment: Name Collection Type:: Clean-Voided MidstreamPerformed By: #### UA ####[address] [address] USAMagnetic resonance imaging reportOrdered By: Ap Paul on 70-17-3266Bdkhp [facility] [address] [place] [id number] MRI Report Signed Patient: Esme Steven MR#: [id number] : 1960 Acct:[id number] Age/Sex: 64 / M ADM Date: 5 Loc: MR Room: Type: [facility] Attending Dr: Jonathan Samano MD Copies to: Jonathan Samano MD~ Ordering Provider: Jonathan Samano MD Date of Service: 01/27/25 MR/MR lumbar spine wo/w con: M47.26 ([id number]) XR/XR pre/post mri xray: M47.26,G89.29, M54.50 MRI lumbar spine performed without and with contrast/2 views of the lumbar spine INDICATION: Low back pain, spondylolysis with radiculopathy lumbar region severeright lower back and buttock pain recent epidural 12/15/2020 FINDINGS: 2 VIEWS OF THE LUMBAR SPINE Dextrocurvature. L4 and L5 decompressive laminectomy. Multilevel disc space narrowing and endplate osteophytosis. No lumbar compression fracture. There are vascular calcifications. Posterior changes both hips. MRI LUMBAR SPINE: Lumbar vertebral heights maintained. Overall moderate multilevel disc space disease identified throughout the lumbar spine. Multilevel facet arthropathy. Evidence of L4 and L5 laminectomy noted. Multilevel minimal Modic type II endplate marrow changes small notably T12-S1 multilevel facet arthropathy. The conus medullaris terminates normally mid L1. Diffuse clumping of the nerve roots of the cauda equina identified due to multilevel degenerative changes and canal narrowing. Clumping suspicious for arachnoiditis. No definite rim-enhancing epidural collections or subdural collections. T12-L1: Broad-based disc bulge with intermargin endplate osteophytosis and facetarthropathy. Mild canal and mild neural from narrowing. L1-L2: Circumferential disc bulge with diffuse endplate osteophytosis and spurring. There is a superimposed disc extrusion extending cranially right subarticular zone 1.2 cm. There is mass effect on both L3 nerve roots right greater than left. There is moderate severe central canal stenosis with loss ofthe CSF signal surrounding the nerve roots of cauda equina. Moderate facet arthropathy and ligamentum flavum hypertrophy. Mild right moderate left neural foraminal narrowing. L2-3: Circumferential disc bulge and moderate severe facet arthropathy. There is central disc extrusion extending caudally 6 mm cranially 4 mm. There is severe central canal stenosis and subarticularrecess narrowing affecting both L3 nerve roots.. Moderate severe right greater than left facet arthropathy and ligamentum flavum hypertrophy. There is moderate right neural from narrowing and moderate to severe left neural foraminal narrowing. L3-L4: Broad-based disc osteophyte complex with moderate severe facet arthropathy and ligamentum flavum hypertrophy. Severe central canal and subarticular recess stenosis. There is moderate to severeneural foraminal narrowing with crowding of both exiting L3 nerve roots. L4-5: Minimal anterolisthesis 2 mm mm uncovering the posterior disc. Circumferential disc osteophyte complex extending to both foramina zones evidence of bilateral facet arthropathy. There is moderate severe bilateral neural foraminal encroachment upon both exiting L4 nerve roots. There is at leastmoderate crowding of the subarticular zones affecting the traversing L5 nerve roots. Mild facet arthropathy identified with dorsal facet synovial cyst noted. Laminectomy noted. L5-S1: Circumferential disc bulge with bilateral facet arthropathy. Bilateral facet spurring. Severe subarticular zone effacement right affecting the traversing S1 nerve roots. Moderate left subarticular recess narrowing. Moderate severe neural foraminal narrowing. Canal is otherwise patent. MR/MR lumbar spine wo/w con IMPRESSION: Progression of the multilevel moderate severe to severe canal and subarticular recess narrowing as above. Multilevel crowding of the cauda equinanerve roots and nerve root impingement as detailed above hs progressed from prior examination. Multilevel redundancy clumping of nerve roots cauda equina noted due to the multilevel severe canalnarrowing. No definite findings of epidural abscess or discitis osteomyelitis. Impression dictated by: Ap Paul M.D. 01/27/2025 11:01 PM Dictation Location: [place] [address] Transcribed By: [facility] 01/27/252300 Dictated By: Ap Paul MD 01/27/252234 Signed By: 01/27/252300 [facility] Work Phone: xr pre/post mri xrayon 83-12-9186KA pre/post mri xray [facility] [place] [address] MRI Report Signed Patient: Esme Steven MR#: [id number] : 1960 Acct:[id number] Age/Sex: 64 / M ADM Date: 01/27/25 Loc: MR Room: Type: [facility] Attending Dr: Jonathan Samano MD Copies to: Jonathan Samano MD Ordering Provider: Jonathan Samaon MD Date of Service: 01/27/25 MR/MR lumbar spine wo/w con: M47.26 ([id number]) XR/XR pre/post mri xray: M47.26,G89.29, M54.50 MRI lumbar spine performed without and with contrast/2 views of the lumbar spine INDICATION: Low back pain, spondylolysis with radiculopathy lumbar region severe right lower back and buttock pain recent epidural 12/15/2020 FINDINGS: 2 VIEWS OF THE LUMBAR SPINE Dextrocurvature. L4 and L5 decompressive laminectomy. Multilevel disc space narrowing and endplate osteophytosis. No lumbar compression fracture. There are vascular calcifications. Posterior changes both hips. MRI LUMBAR SPINE: Lumbar vertebral heights maintained. Overall moderate multilevel disc space disease identified throughout the lumbar spine. Multilevel facet arthropathy. Evidence of L4 and L5 laminectomy n oted. Multilevel minimal Modic type II endplate marrow changes small notably T12-S1 multilevel facet arthropathy. The conus medullaris terminates normally mid L1. Diffuse clumping of the nerve roots of the cauda equina identified due to multilevel degenerative changes and canal narrowing. Clumping suspicious for arachnoiditis. No definite rim-enhancing epidural collections or subdural collections. T12-L1: Broad-based disc bulge with intermargin endplate osteophytosis and facet arthropathy. Mild canal and mild neural from narrowing. L1-L2: Circumferential disc bulge with diffuse endplate osteophytosis and spurring. There is a superimposed disc extrusion extending cranially right subarticular zone 1.2 cm. There is mass effect on both L3 nerve roots right greater than left. There is moderate severe central canal stenosis with loss of the CSF signal surrounding the nerve roots of cauda equina. Moderate facet arthropathy and ligamentum flavum hypertrophy. Mild right moderate left neural foraminal narrowing. L2-3: Circumferential disc bulge and moderate severe facet arthropathy. There is central disc extrusion extending caudally 6 mm cranially 4 mm. There is severe central canal stenosis and subarticular recess narrowing affecting both L3 nerve roots.. Moderate severe right greater than left facet arthropathy and ligamentum flavum hypertrophy. There is moderate right neural from narrowing and moderate to severe left neural foraminal narrowing. L3-L4: Broad-based disc osteophyte complex with moderate severe facet arthropathy and ligamentum flavum hypertrophy. Severe central canal and subarticular recess stenosis. There is moderate to severe neural foraminal narrowing with crowding of both exiting L3 nerve roots. L4-5: Minimal anterolisthesis 2 mm mm uncovering the posterior disc. Circumferential disc osteophyte complex extending to both foramina zones evidence of bilateral facet arthropathy. There is moderate severe bilateral neural foraminal encroachment upon both exiting L4 nerve roots. There is at least moderate crowding of the subarticular zones affecting the traversing L5 nerve roots. Mild facet arthropathy identified with dorsal facet synovial cyst noted. Laminectomy noted. L5-S1: Circumferential disc bulge with bilateral facet arthropathy. Bilateral facet spurring. Severe subarticular zone effacement right affecting the traversing S1 nerve roots. Moderate left subarticular recess narrowing. Moderate severe neural foraminal narrowing. Canal is otherwise patent. MR/MR lumbar spine wo/w con IMPRESSION: Progression of the multilevel moderate severe to severe canal and subarticular recess narrowing as above. Multilevel crowding of the cauda equina nerve roots and nerve root impingement as detailed above hs progressed from prior examination. Multilevel redundancy clumping of nerve roots cauda equina noted due to the multilevel severe canal narrowing. No definite findings of epidural abscess or discitis osteomyelitis. Impression dictated by: Ap Paul M.D. 01/27/2025 11:01 PM Dictation Location: [place] [address] Transcribed By: [facility] 01/27/252300 Dictated By: Ap Paul MD 01/27/252234 Signed By: 01/27/252300[facility] Physician GroupX-ray reportOrdered By: Matt Ferrell on 13-20-2251Utrov reportTHE [facility]ICAL [facility] [address] [place] [address] XRay Report Signed Patient: Esme Steven MR#: [id number] : 1960 Acct:[id number] Age/Sex: 64 / M ADM Date: 5 Loc: SOXD Room: Type: [facility] CLI Attending Dr: Sarai Mendez II, MD Copies to: Sarai Mendez MD~ Ordering Provider: Sarai Mendez MD Date of Service: 01/07/25 XR/XR hip RT min 2V(w/wo pelvis)*: Z96.641 - ([id number]) XR/XR knee RT 3V - NOT FOR [...] Ferrell M.D. 01/07/2025 4:29 PM Dictation Location: [facility] Transcribed By: [facility] 01/07/251628 Dictated By: Matt Ferrell DO 01/07/251625 Signed By: 01/07/25 1629 [facility] HospitalXR hip RT min 2V(w/wo pelvis)*on 81-05-0554KV hip RT min 2V(w/wo pelvis)*[facility] [address] [place] [address] XRay Report Signed Patient: Esme Steven MR#: [id number] : 1960 Acct:[id number] Age/Sex: 64 / M ADM Date: 01/07/25 [facility] Type[facility] CLI Attending Dr: Sarai Mendez II, MD Copies to: Sarai Mendez MD Ordering Provider: Sarai Mendez MD Date of Service: 01/07/25 XR/XR hip RT min 2V(w/wo pelvis)*: Z96.641 - ([id number]) XR/XR knee RT 3V - NOT FOR [...] acute displaced fracture. Impression dictated by: Matt Frerell M.D. 01/07/2025 4:29 PM Dictation Location: [facility]20 Transcribed By: [facility] 01/07/25 1629 Dictated By: Matt Ferrell DO 01/07/25 1626 Signed By: 01/07/25 1629[facility] Physician GroupECG [address] [place] 21-83-6859Didvub sinus rhythm with nonspecific ST-T changes with QTc interval of [facility] Work Phone: activated partial thromboplastin time (aPTT) in platelet poor plasma by coagulation aOrdered By: Casimiro Landaverde on 67-48-6784iTWM Coag (PPP) [Time]24.8 s22.3-36.2FBerger HospitalBasophils Auto (Bld) [#/Vol]Ordered By: Casimiro Lnadaverde on 29-14-8725Arnhkjaja (Bld) [#/Vol]0.0 10 3/uL0.0-0.1FBerger HospitalBasophils/100 WBC Auto (Bld)Ordered By: Casimiro Landaverde on 76-20-3626Suxkojtbu/100 WBC (Bld)0.3 %0.2-2.0[facility] HospitalEosinophils/100 WBC Auto (Bld)Ordered By: Casimiro Landaverde on 73-49-2892Lmlkrsxbkgf/100 WBC (Bld)0.1 %Low0.9-7.0[facility] HospitalErythrocyte distribution width Auto (RBC) [Ratio]Ordered By: Casimiro Landaverde on 99-13-6774Lhxjqnriyxv distribution width (RBC) [Ratio]13.7 %11.0-15.0[facility] HospitalGlobulin Calc (S) [Mass/Vol]Ordered By: Casimiro Landaverde on 30-64-5326Onydubtd (S) [Mass/Vol]3.4 g/dLVan Wert County Hospital Glomerular filtration rate (GFR) estimation in non- AmericanOrdered By: Casimiro Landaverde on 50-03-2151AMA/1.73 sq M.predicted among non-blacks MDRD (S/P/Bld) [Vol rate/Area]mL/min/{1.73_m2}>=60 mL/min/1.73m 2FBerger HospitalHematocrit Auto (Bld) [Volume fraction]Ordered By: Casimiro Landaverde on 02-46-2721Adnglasonw (Bld) [Volume fraction]43.4 %42.0-54.0[facility] HospitalHemoglobin [Mass/volume] in BloodOrdered By: Casimiro Landaverde on 54-42-7201Qzqlyyqwrx (Bld) [Mass/Vol]15.2 g/dL14.0-18.0[facility] HospitalINR in Platelet poor plasma by Coagulation assayOrdered By: Casimiro Landaverde on 47-29-4897SPI Coag (PPP) [Relative time]1.06 {INR}[facility] HospitalComment on above:DESIRED INR:2.0-3.0 CONDITIONS NOT LISTED BELOW2.5-3.5 FOR PROSTHETIC HEART VALVE REPLACEMENT2.5-3.5 RECURRENT THROMBOSIS Laboratory - Chemistry and Chemistry - challengeOrdered By: Casimiro Landaverde on 27-15-8419Xrswbrjcc Ql (U)NegativeNEGATIVEVan Wert County Hospital Glucose (U) [Mass/Vol]mg/dLAbnormalNEGATIVEVan [facility]ert [facility] Hospital Ketones Ql (U)NegativeNEGATIVEVan Wert County HospitalpH (U)7.0 [pH] 5.0-9.0[facility]zer Health Systempecific gravity (U) [Rel density]1.010 1.005-1.025[facility] HospitalUrobilinogen Qn (U)0.2 {Abhijit'U}/dL0.2-1.0[facility] HospitalAlbumin [Mass/Vol]3.7 g/dL 3.4-5.0[facility] HospitalALP [Catalytic activity/Vol]88 U/L46-116 [facility] HospitalALT [Catalytic activity/Vol]58 U/L16-63 [facility] HospitalAST [Catalytic activity/Vol]20 U/L15-37 [facility] HospitalBilirubin [Mass/Vol]1.0 mg/dL0.2-1.0[facility] HospitalCalcium [Mass/Vol]9.0 mg/dL8.5-10.1FBerger HospitalChloride [Moles/Vol]100 mmol/L06-544AilpophdnVan Wert County HospitalCO2 [Moles/Vol]25.9 mmol/L21.0-32.0[facility] Creatinine [Mass/Vol]0.88 mg/dL0.70-1.30[facility] GFR/1.73 sq M.predicted MDRD (S/P/Bld) [Vol rate/Area]mL/min/{1.73_m2}>=60 mL/min/1.73m 2FBerger HospitalGlucose [Mass/Vol]322 mg/dLHigh 74-106[facility] HospitalPotassium [Moles/Vol]4.2 mmol/L3.5-5.1 [facility] HospitalProtein [Mass/Vol]7.1 g/dL6.4-8.2FTogus VA Medical Centerodium [Moles/Vol]136 mmol/C574-914ZzxeutqdbVan Wert County HospitalUrea nitrogen [Mass/Vol]17.0 mg/dL7.0-18.0[facility] HospitalUrea nitrogen/Creatinine [Mass ratio]19.3 mg/mgVan Wert County HospitalLaboratory - Hematology and Cell countsOrdered By: Casimiro Landaverde on 14-63-1705Hffejrfr granulocytes/100 WBC (Bld)1.9 %High0.0-0.5FBerger HospitalLaboratory - Specimen informationOrdered By: Casimiro Landaverde on 57-63-3415Kvtyugkzqa (U)CLEARCLEARFBerger HospitalColor (U)LT. YELLOWYELLOWVan Wert County HospitalLaboratory - UrinalysisOrdered By: Casimiro Landaverde on 88-01-0525Ghrlespwa esterase Test strip Ql (U)NegativeNEGATIVE [facility] HospitalMucus Ql (Urine sed)NONE SEENNONE SEENVan Wert County HospitalNitrite Ql (U)NegativeNEGATIVEVan Wert County HospitalProtein Ql (U)NegativeNEG/TRACEVan Wert County HospitalLeukocytes [#/volume] corrected for nucleated erythrocytes in Blood by Automated coun Ordered By: Casimiro Landaverde on 92-71-7625LTZ corrected for nucl RBC Auto (Bld) [#/Vol]11.8 10 3/uLHigh4.0-11.0[facility] HospitalLymphocytes Auto (Bld) [#/Vol]Ordered By: Casimiro Landaverde on 32-51-7987Desgujpnzzh (Bld) [#/Vol]1.2 10 3/uL1.2-3.8[facility] HospitalLymphocytes/100 WBC Auto (Bld) Ordered By: Casimiro Landaverde on 55-64-0540Jprdoqbqroq/100 WBC (Bld)9.8 %Low20.5-60.0 [facility] Auto (RBC) [Entitic mass]Ordered By: Casimiro Landaverde on 51-11-1966QHR (RBC) [Entitic mass]35.1 fhNffr01.9-34.0[facility] HospitalMCHC Auto (RBC) [Mass/Vol]Ordered By: Casimiro Landaverde on 70-84-6377GHCR (RBC) [Mass/Vol]35.0 g/dL29.9-35.2FBerger HospitalMCV Auto (RBC) [Entitic vol]Ordered By: Casimiro Landaverde on 06-84-2817UGT (RBC) [Entitic vol] 100.2 kHVebw21.0-94.0[facility] HospitalMonocytes Auto (Bld) [#/Vol]Ordered By: Casimiro Landaverde on 30-22-5907Nndtkccgb (Bld) [#/Vol]0.8 10 3/uL 0.3-0.8[facility] HospitalMonocytes/100 WBC Auto (Bld)Ordered By: Casimiro Landaverde on 43-85-3783Sffavwkyd/100 WBC (Bld)6.7 %1.7-12.0[facility] HospitalNeutrophils Auto (Bld) [#/Vol]Ordered By: Casimiro Landaverde on 2024 Neutrophils (Bld) [#/Vol]9.6 10 3/uLHigh1.4-6.5FBerger Hospital Neutrophils/100 WBC Auto (Bld)Ordered By: Casimiro Landaverde on 2024 Neutrophils/100 WBC (Bld)81.2 %High43.0-75.0[facility] HospitalNo Panel InformationOrdered By: Casimiro Landaverde on 27-37-7593Koohj BacteriaNONE SEEN #/HPFNONE SEENVan Wert County HospitalUrine Culture ReflexedNOVan Wert County HospitalUrine Occult BloodNegativeNEGATIVEVan Wert County HospitalUrine Other CastsNONE SEEN #/LPFNONE [facility] HospitalUrine Other CrystalsNone Seen #/HPFNone [facility] HospitalUrine RBCNONE SEEN #/HPF0-2FBerger HospitalUrine Squamous Epithelial CellsRARE #/LPFNONE/RAREVan Wert County Hospital Urine WBCNONE SEEN #/HPFNONE [facility] HospitalEosinophils # (Auto)0.0 10 3/uL0.0-0.7FBerger HospitalImmature Granulocyte # (Auto)0.22 10 3/uLHigh0.00-0.03[facility] HospitalPlatelet mean volume Auto (Bld) [Entitic vol]Ordered By: Casimiro Landaverde on 44-14-3988Cxioytmz mean volume (Bld) [Entitic vol]10.4 fL9.5-13.5FBerger Hospital Platelets Auto (Bld) [#/Vol]Ordered By: Casimiro Landaverde on 96-17-0970Pezpcknml (Bld) [#/Vol]167 10 3/rH378-614LdegwkvlvVan Wert County HospitalProthrombin time (PT) Ordered By: Casimiro Landaverde on 34-66-0829AE Coag (PPP) [Time]11.2 s9.0-11.6FBerger HospitalRBC Auto (Bld) [#/Vol]Ordered By: Casimiro Landaverde on 42-01-9711JGG (Bld) [#/Vol]4.33 10 6/uLLow4.70-6.10Holzer Health Systemerum or plasma albumin/globulin mass ratioOrdered By: Casimiro Landaverde on 89-47-5262Irkdmdq/Globulin [Mass ratio]1.1 {ratio}Holzer Health Systemerum or plasma anion gap determinationOrdered By: Casimiro Landaverde on 22-28-2148Rxhlo gap [Moles/Vol]14.3 mmol/LFBerger HospitalECG 12 lead ECGon 93-35-0302ELL 12 lead [facility] Main [place] [address] [place] [address] Electrocardiograph Report Signed Patient: Esme Steven MR#: [id number] : 1960 Acct:[id number] Age/Sex: 63 / M ADM Date: 12/09/24 Loc: Room: [address] [place] [address] Type: DIS IN Attending Dr: Antonio Steele [...] in Lateral leads Confirmed by Will Koch ([id number]) on 12/12/2024 5:41:54 PM Referred By: Electronically Signed By: Will Koch Transcribed By: MUS Signed By Will Koch MD 12/12/24 1741[facility] Physician GroupINR in Platelet poor plasma by Coagulation assayOrdered By: Antonio Steele on 72-22-0220WGI Coag (PPP) [Relative time]1.3 {INR}NormalVan Wert County HospitalComment on above: INR Therapeutic Range A) Pre- and Peroperative [...] heart valves: 3 - 4.5 PERFORMED BY: [facility] [address] [place] [id number] PATHOLOGIST [employer] RYAN ALMARAZ M.D.Performed By: #### PT ####[place] [address] [place] [address] USAProthrombin time (PT)Ordered By: Antonio Steele on 37-55-9095KL Coag (PPP) [Time]14.6 sHigh9.0-12.9[facility] HospitalComment on above:A hematocrit value greater than 55% may lead to inaccurate results in coagulation testing. Patientshaving hematocrit values >55% require a special collection tube for coagulation studies. Please c ontact the laboratory at [phone] for redraw instructions.Result Comment: A hematocrit value greater than 55% may lead to inaccurate results in coagulation testing. Patients having hematocrit values >55% require a special collection tube for coagulation studies. Please contact the laboratory at [phone] for redraw instructions.Performed By: #### PT ####[facility] [address] [place] [address] USACarbon dioxide, total [Moles/volume] in Serum or PlasmaOrdered By: Antonio Steele on 45-57-2059HO7 [Moles/Vol]29.5 mmol/L Rdrxtd49.0-31.0[facility] HospitalComment on above:Performed By: #### DIMITRIOS #### [facility] [address] [place] [address] USAChloride [Moles/volume] in Serum or PlasmaOrdered By: Antonio Steele on 99-74-4234Qnkfnmkj [Moles/Vol]102 mmol/UAgkzpo11-887 [facility] HospitalComment on above:Performed By: #### LYCORNELL #### [facility] [address] [place] [address] USAECG 12 lead ECGon 34-22-9687VNK 12 lead [facility] [place] [address] Electrocardiograph Report Signed Patient: Esme Steven MR#: [id number] : 1960 Acct:[id number] Age/Sex: 63 / M ADM Date: 12/09/24 Loc: Room: [address] [place] [address] Type: DIS IN Attending Dr: Antonio Steele [...] in Inferior leads Confirmed by Will Koch ([id number]) on 12/12/2024 5:41:52 PM Referred By: Electronically Signed By: Will Koch Transcribed By: MUS Signed By Will Koch MD 12/12/[address] [place] [address] Physician GroupECG 12 lead [facility] Main [place] [id number] Electrocardiograph Report Signed Patient: Esme Steven MR#: [id number] : 1960 Acct:[id number] Age/Sex: 63 / M ADM Date: 12/09/24 Loc: Room: [address] [place] [address] Type: DIS IN Attending Dr: Antonio Steele [...] QT Abnormal ECG Confirmed by Ada Woodruff ([id number]) on 12/16/2024 2:47:12 PM Referred By: Electronically Signed By: Ada Woodruff Transcribed By: MUS Signed By Ada Woodruff MD [address] [place] [address] Physician GroupECG 12 lead [facility] [place] [address] Electrocardiograph Report Signed Patient: Esme Steven MR#: [id number] : 1960 Acct:[id number] Age/Sex: 63 / M ADM Date: 12/09/24 Loc: Room: [address] [place] [address] Type: ADM IN Attending Dr: Antonio Steele [...] intraventricular conduction delay Confirmed by Will Koch ([id number]) on 12/11/2024 9:11:18 PM Referred By: Electronically Signed By: Will Koch Transcribed By: MUS Signed By Will Koch MD 12/11/[address] [place], [place] [address]Potassium [Moles/volume] in Serum or PlasmaOrdered By: Antonio Steele on 00-22-8410Xdjusdqsj [Moles/Vol] 4.2 mmol/LNormal3.5-5.1FBerger HospitalComment on above: Performed By: #### LYTES #### [place] [address] USAProthrombin Time INRon 18-04-1488VOF Coag (PPP) [Relative time]1.3 {INR}NormalThe [facility] Physician GroupComment on above:Result Comment: INR Therapeutic Range A) Pre- and [...] heart valves: 3 - 4.5 PERFORMED BY: [place] [address] PATHOLOGIST [employer] RYAN ALMARAZ M.D.Performed By: #### PT #### [place] [address] USAPT Coag (PPP) [Time]14.4 sHigh9.0-12.9The [facility] Physician GroupComment on above:Result Comment: A hematocrit value greater than 55% may lead to inaccurate results in coagulation testing. Patients having hematocrit values >55% require a special collection tube for coagulation studies. Please contact the laboratory at [phone] for redraw instructions.Performed By: #### PT #### [place] [id number] USASerum or plasma anion gap determinationOrdered By: Antonio Steele on 90-41-6661Uprom gap [Moles/Vol]8.7 mmol/LNormal6.0-15.0[facility] HospitalComment on above:Result Comment: PERFORMED BY: [place] [address] PATHOLOGIST [employer] RYAN ALMARAZ M.D.Performed By: #### LYTES #### [facility] [address] [place] [address] USASodium [Moles/volume] in Serum or PlasmaOrdered By: Antonio Steele on 71-88-6298Zuqkvj [Moles/Vol]136 mmol/UCaizxz894-217 [facility] HospitalComment on above:Performed By: #### LYTES #### [facility] [address] [place] [address] USAECG 12 lead ECGon 60-18-6195AYN 12 lead [facility] [place] [address] Electrocardiograph Report Signed Patient: Esme Steven MR#: [id number] : 1960 Acct:[id number] Age/Sex: 63 / M ADM Date: 12/09/24 Loc: Room: [address] [place] [address] Type: ADM IN Attending Dr: Antonio Steele [...] intraventricular conduction delay Confirmed by Will Koch ([id number]) on 12/11/2024 9:10:59 PM Referred By: Electronically Signed By: Will Koch Transcribed By: MUS Signed By Will Koch MD 12/11/[address] [place] [address] Physician GroupECG 12 lead [facility] Main [place] [id number] Electrocardiograph Report Signed Patient: Esme Steven MR#: [id number] : 1960 Acct:[id number] Age/Sex: 63 / M ADM Date: 12/09/24 Loc: Room: [address] [place] [address] Type: ADM IN Attending Dr: Antonio Steele [...] change was found Confirmed by Will Koch ([id number]) on 12/11/2024 9:10:42 PM Referred By: Electronically Signed By: Will Koch Transcribed By: MUS Signed By Will Koch MD 12/11/242109[facility] Physician GroupProthrombin Time INRon 32-84-5024ZBL Coag (PPP) [Relative time]1.2 {INR}NormalThe [facility] Physician [facility] HospitalComment on above:Result Comment: INR Therapeutic Range A) Pre- and [...] heart valves: 3 - 4.5 PERFORMED BY: [place] [address] PATHOLOGIST [employer] RYAN ALMARAZ M.D.Performed By: #### BMP, PT #### [place] [address] USAPT Coag (PPP) [Time]13.7 sHigh9.0-12.9The [facility] Physician GroupComment on above:Result Comment: A hematocrit value greater than 55% may lead to inaccurate results in coagulation testing. Patients having hematocrit values >55% require a special collection tube for coagulation studies. Please contact the laboratory at [phone] for redraw instructions.Performed By: #### BMP, PT #### [place] [address] USABasic Metabolic Panelon 09-16-7573Pmvzw gap [Moles/Vol]8.0 mmol/LNormal6.0-15.0The [facility] Physician GroupComment on above:Performed By: #### BMP, PT #### [place] [address] USAChloride [Moles/Vol]105 mmol/EIswvic09-352Zky [facility] Physician GroupComment on above:Performed By: #### BMP, PT #### [place] [address] USACO2 [Moles/Vol]27.0 mmol/SIoxuuf71.0-31.0The [facility] Physician GroupComment on above:Performed By: #### BMP, PT #### [place] [address] USAGFR/1.73 sq M.predicted MDRD (S/P/Bld) [Vol rate/Area] mL/min/{1.73_m2}NormalThe [facility] Physician GroupComment on above:Performed By: #### BMP, PT #### [place] [address] USAPotassium [Moles/Vol]4.0 mmol/LNormal3.5-5.1The [facility] Physician GroupComment on above:Performed By: #### BMP, PT #### [place] [address] USASodium [Moles/Vol]136 mmol/HCycxiv423-144Byr [facility] Physician GroupComment on above:Performed By: #### BMP, PT #### [place] [address] USACalcium [Mass/volume] in Serum or PlasmaOrdered By: Antonio Steele on 87-06-6269Ttyfnwa [Mass/Vol]8.7 mg/dLNormal8.6-10.3 [facility] HospitalComment on above:Result Comment: PERFORMED BY: [place] [address] PATHOLOGIST [employer] RYAN ALMARAZ M.D.Performed By: #### BMP, PT #### [place] [address] USACreatinine [Mass/volume] in Serum or PlasmaOrdered By: Antonio Steele on 04-72-4295Gskzreavua [Mass/Vol]0.84 mg/dLNormal0.70-1.30 [facility] HospitalComment on above:Performed By: #### BMP, PT #### [facility] [address] [place] [address] USAECG 12 lead ECGon 67-18-7456UOQ 12 lead [facility] [place] [address] Electrocardiograph Report Signed Patient: Esme Steven MR#: [id number] : 1960 Acct:[id number] Age/Sex: 63 / M ADM Date: 12/09/24 Loc: Room: [address] [place] [address] Type: ADM IN Attending Dr: Antonio Steele [...] QT has lengthened Confirmed by Will Koch ([id number]) on 12/11/2024 9:10:26 PM Referred By: Electronically Signed By: Will Koch Transcribed By: MUS Signed By Will Koch MD 12/11/[address] [place] [address] Physician GroupEC 12 lead [facility] Main [place] [address] [place] [address] Electrocardiograph Report Signed Patient: Esme Steven MR#: [id number] : 1960 Acct:[id number] Age/Sex: 63 / M ADM Date: 12/09/24 Loc: Room: [address] [place] [address] Type: ADM IN Attending Dr: Antonio Steele [...] QT has shortened Confirmed by Will Koch ([id number]) on 12/11/2024 9:10:22 PM Referred By: Electronically Signed By: Will Koch Transcribed By: MUS Signed By Will Koch MD 12/11/[address] [place] [address] Physician GroupGlomerular filtration rate [Volume Rate/Area] in Serum, Plasma or Blood by CreatinineOrdered By: Antonio Steele on 80-15-0181Jmztymtqvr filtration rate [Volume Rate/Area] in Serum, Plasma or Blood by Creatinine> 60.0 mL/MinVan Wert County Hospital Glucose [Mass/volume] in Serum or PlasmaOrdered By: Antonio Steele on 66-80-3961Fwgjmsx [Mass/Vol]190 mg/bKQjvn05-774TpnwbfhowVan Wert County Hospital Comment on above:ADA recommended reference rangeRandom Glucose Reference Range is dependent on time and content of last meal. Glucose of more than 200 mg/dL in a nonstressed, ambulatory subject supports the diagnosisof Diabetes Mellitus. Result Comment: Random Glucose Reference Range is dependent on time and content of last meal. Glucose of more than 200 mg/dL in a nonstressed, ambulatory subject supports the diagnosis of Diabetes Mellitus. ADA recommended reference rangePerformed By: #### BMP, PT #### [place] [address] USANo Panel InformationOrdered By: Antonio Steele on 47-35-6101Wwyrsufo Creatinine Clearance (ChemN/[facility] HospitalProthrombin Time INRon 51-97-2238MJO Coag (PPP) [Relative time]1.3 {INR} NormalThe [facility] Physician GroupComment on above:Result Comment: INR Therapeutic Range A) Pre- and [...] heart valves: 3 - 4.5 PERFORMED BY: [place] [address] PATHOLOGIST [employer] RYAN ALMARAZ M.D.Performed By: #### BMP, PT #### [address] [address] USAPT Coag (PPP) [Time]14.9 sHigh9.0-12.9The [facility] Physician GroupComment on above:Result Comment: A hematocrit value greater than 55% may lead to inaccurate results in coagulation testing. Patients having hematocrit values >55% require a special collection tube for coagulation studies. Please contact the laboratory at [phone] for redraw instructions.Performed By: #### BMP, PT #### [place] [address] USAUrea nitrogen [Mass/volume] in Serum or PlasmaOrdered By: Antonio Steele on 48-34-0888Jxda nitrogen [Mass/Vol]15 mg/dLNormal10-31 [facility] HospitalComment on above:Performed By: #### BMP, PT #### [facility] [address] [place] [address] USAECG 12 [place] 74-49-1807Fuzurv fibrillation with controlled rate and nonspecific ST-T changesCPACSChildren's Hospital of Columbus Work Phone: X-ray reportOrdered By: Rubio Vazquez on 10-23-2024 Study reportTHE [facility] [address] [place] [address] XRay Report Signed Patient: Esme Steven MR#: [id number] : 1960 Acct:[id number] Age/Sex: 63 / M ADM Date: 5 Loc: [facility] Room: Type: [facility] Attending Dr: Sarai Mendez II, MD Copies to: Sarai Mendez MD~ Ordering Provider: Sarai Mendez MD Date of Service: 10/23/24 XR/XR hip RT min 2V(w/wo pelvis)*: Z96.641 - Presenceof right artificialhip joint XR hip RT min 2V(w/wo pelvis)* 10/23/2024 2:28 PM SIGNS AND SYMPTOMS: Right total hip arthroplasty, follow-up PROTOCOL: Frontal radiograph the pelvis with crosstable lateral view of the right hip COMPARISON: 05/16/2023 FINDINGS: There is total hip arthroplasty hardware bilaterally. There is no fracture or fixation. No hardwarecomplication. Bony ring of the pelvis is intact. XR/XR hip RT min 2V(w/wo pelvis)* IMPRESSION: Uncomplicated total right hip arthroplasty. Impression dictated by: Rubio Vazquez M.D. 10/23/2024 7:56 PM Dictation Location: [facility] Transcribed By: [facility] 10/23/241955 Dictated By: Rubio Vazquez II, MD 10/23/241954 Signed By: 10/23/241955 [facility] Work Phone: XR hip RT min 2V(w/wo pelvis)*on 86-72-6058SR hip RT min 2V(w/wo pelvis)*[facility] [address] [place] [address] XRay Report Signed Patient: Esme Steven MR#: [id number] : 1960 Acct:[id number] Age/Sex: 63 / M ADM Date: 10/23/24 Loc: [facility] Room: Type: [facility] Attending Dr: Sarai Mendez II, MD Copies [...] Vazquez M.D. 10/23/2024 7:56 PM Dictation Location: [place] [address] Transcribed By: [facility] 10/23/241955 Dictated By: Rubio Vazquez II, MD 10/23/241954 Signed By: 10/23/241955[facility] Physician GroupBasic Metabolic Panelon 42-28-0789Zipdpyuxwk Clr Calc Yszpjtzq689.50[facility] Comment on above:Result Comment: PERFORMED BY: [facility] [address] [place] [address] PATHOLOGIST [employer] RYAN ALMARAZ M.D.Performed By: #### BMP, CBC ####[facility] [address] [place] [address] USAGFR/1.73 sq M.predicted MDRD (S/P/Bld) [Vol rate/Area]mL/min/{1.73_m2}NormalThe [facility] Physician GroupComment on above:Performed By: #### BMP, CBC ####[address] [address] USABasophils [#/volume] in Blood by Automated count Ordered By: Ada Valentin on 07-46-0035Bbpebyaoz (Bld) [#/Vol]0.1 10*3/uLNormal 0.0-0.2FBerger HospitalComment on above:Result Comment: PERFORMED BY: [facility] [address] [place] [address] PATHOLOGIST [employer] RYAN ALMARAZ M.D.Performed By: #### BMP, CBC ####[address] [address] USABasophils/100 leukocytes in Blood by Automated countOrdered By: Ada Valentin on 26-35-4863Xvyegmofo/100 WBC (Bld)0.5 % Normal.[facility] HospitalComment on above:Performed By: #### BMP, CBC ####[address] [address] [place] Calcium [Mass/volume] in Serum or PlasmaOrdered By: Ada Valentin on 10-01-2024 Calcium [Mass/Vol]8.4 mg/dLLow8.6-10.3FBerger HospitalComment on above:Performed By: #### BMP, CBC ####[address] [address] USACarbon dioxide, total [Moles/volume] in Serum or PlasmaOrdered By: Ada Valentin on 33-15-5092CU9 [Moles/Vol]25.4 mmol/LNormal 21.0-31.0[facility] HospitalComment on above:Performed By: #### BMP, CBC ####[address] [address] USAChloride [Moles/volume] in Serum or PlasmaOrdered By: Ada Valentin on 92-10-5559Fwvdrsuk [Moles/Vol]104 mmol/FVolved45-136ZfngbnnnwVan Wert County HospitalComment on above:Performed By: #### BMP, CBC ####[address] [place] [address] USAComplete Blood Count Auto Diff on 14-04-0770Sbor Corpuscular HGB Conc34.1 g/oSEtfmck61.5-35.6[facility] Physician GroupComment on above:Performed By: #### BMP, CBC ####[place] [address] USANRBC%0.1 /100{WBC} Normal0-0.5The [facility] Physician [facility] HospitalComment on above:Performed By: #### BMP, CBC ####[place] [address] [facility] White Blood Count13.7 [CFU]/mLHigh4.1-10.5[facility] Physician [facility] HospitalComment on above:Performed By: #### BMP, CBC ####[place] [address] USACreatinine [Mass/volume] in Serum or Plasma Ordered By: Ada Valentin on 10-45-1196Sfncfsyjfs [Mass/Vol]0.79 mg/dLSignificant change down0.70-1.30[facility] HospitalComment on above:Delta: 1.32 on 09/30/24-1421Performed By: #### BMP, CBC ####[place] [address] USAEosinophils [#/volume] in Blood by Automated countOrdered By: Ada Valentin on 34-74-2358Kxpfpjnbbin (Bld) [#/Vol]0.1 10*3/uLNormal0.0-0.45[facility] HospitalComment on above: Performed By: #### BMP, CBC ####[address] [address] USAEosinophils/100 leukocytes in Blood by Automated countOrdered By: Ada Valentin on 65-07-4356Xxclsybqqje/100 WBC (Bld)0.9 %Normal. [facility] HospitalComment on above:Performed By: #### BMP, CBC ####[address] [address] [facility] Erythrocyte distribution width [Ratio] by Automated countOrdered By: Ada Valentin on 24-27-7220Ktkmohtzxzg distribution width (RBC) [Ratio]14.4 %Hhqsjr06.0-14.8 [facility] HospitalComment on above:Performed By: #### BMP, CBC ####[address] [address] [facility] Erythrocytes [#/volume] in Blood by Automated countOrdered By: Ada Valentin on 95-23-4028KMZ (Bld) [#/Vol]4.32 10*6/uLNormal3.90-5.60[facility] HospitalComment on above:Performed By: #### BMP, CBC ####[address] [address] USAGlucose [Mass/volume] in Serum or PlasmaOrdered By: Ada Valentin on 46-63-8487Cqqkwoz [Mass/Vol]120 mg/dLHigh 70-100[facility] HospitalComment on above:ADA recommended reference rangeRandom Glucose Reference Range is dependent on time and content of last meal. Glucose of more than 200 mg/dL in a nonstressed, ambulatory subject supports the diagnosisof Diabetes Mellitus.Result Comment: Random Glucose Reference Range is dependent on time and content of last meal. Glucose of more than 200 mg/dL in a nonstressed, ambulatory subject supports the diagnosis of Diabetes Mellitus. ADA recommended reference rangePerformed By: #### BMP, CBC ####[address] [address] USAHematocrit [Volume Fraction] of Blood by Automated countOrdered By: Ada Valentin on 10-01-2024 Hematocrit (Bld) [Volume fraction]44.0 %Ybeynh24.8-50.0[facility] HospitalComment on above:Performed By: #### BMP, CBC ####[address] [place] [address] USAHemoglobin [Mass/volume] in BloodOrdered By: Ada Valentin on 71-77-5538Xzajeslgsc (Bld) [Mass/Vol]15.0 g/nZJjnwip68.0-17.0[facility] HospitalComment on above:Performed By: #### BMP, CBC ####[address] [address] USALactate [Moles/volume] in Serum or PlasmaOrdered By: Ada Valentin on 30-16-9970Kznksty [Moles/Vol]1.1 mmol/LNormal0.5-1.9Van [facility] HospitalComment on above:Lactic Acid reference range has been updated to 0.5 1.9 mmol/L and the critical range of 2.0 or greater.Order Comment: Comment Add onResult Comment: Lactic Acid reference range has been updated to 0.5 ? 1.9 mmol/L and the critical range of 2.0 or greater. PERFORMED BY: [facility] [address] [facility] [place] [address] PATHOLOGIST [employer] RYAN ALMARAZ M.D.Performed By: #### LACTIC ####[address] [address] USALeukocytes [#/volume] corrected for nucleated erythrocytes in Blood by Automated counOrdered By: Ada Valentin on 93-46-5006UXC corrected for nucl RBC Auto (Bld) [#/Vol]13.7 10*3/uLHigh4.1-10.5 [facility] HospitalLeukocytes [#/volume] in Blood by Automated countOrdered By: Ada Valentin on 10-26-7070ZLZ (Bld) [#/Vol]13.7 10*3/uLHigh 4.1-10.5FBerger HospitalComment on above:Performed By: #### BMP, CBC ####[address] [address] USALymphocytes [#/volume] in Blood by Automated countOrdered By: Ada Valentin on 71-73-7486Nfudfmeubew (Bld) [#/Vol]2.2 10*3/uLNormal1.00-4.8[facility] HospitalComment on above:Performed By: #### BMP, CBC ####[address] [address] USALymphocytes/100 leukocytes in Blood by Automated countOrdered By: Ada Valentin on 10-01-2024 Lymphocytes/100 WBC (Bld)16.2 %Normal.[facility] HospitalComment on above:Performed By: #### BMP, CBC ####[address] [address] [facility] [Entitic mass] by Automated countOrdered By: Ada Valentin on 18-08-7542IJP (RBC) [Entitic mass]34.7 suMlozem49.5-35.2 [facility] HospitalComment on above:Performed By: #### BMP, CBC ####[address] [address] [facility] Auto (RBC) [Mass/Vol]Ordered By: Ada Valentin on 65-91-9573JOKV (RBC) [Mass/Vol] 34.1 g/dL32.5-35.6FMemorial Health SystemV [Entitic volume] by Automated countOrdered By: Ada Valentin on 03-25-6601MPQ (RBC) [Entitic vol]101.8 vUJlff51.5-101Van [facility] County HospitalComment on above:Performed By: #### BMP, CBC ####[address] [address] USAMonocytes [#/volume] in Blood by Automated countOrdered By: Ada Valentin on 29-89-3058Tplexjczm (Bld) [#/Vol]1.1 10*3/uLHigh0.0-0.8[facility] HospitalComment on above:Performed By: #### BMP, CBC ####[address] [address] USAMonocytes/100 leukocytes in Blood by Automated countOrdered By: Ada Valentin on 10-01-2024 Monocytes/100 WBC (Bld)7.9 %Normal.[facility] HospitalComment on above:Performed By: #### BMP, CBC ####[facility] [address] [place] [address] USANeutrophils [#/volume] in Blood by Automated count Ordered By: Ada Valentin on 49-43-5794Hbgbdszoquw (Bld) [#/Vol]10.2 10*3/uLHigh 1.8-7.7FBerger HospitalComment on above:Performed By: #### BMP, CBC ####[place] [address] [place] Neutrophils/100 leukocytes in Blood by Automated countOrdered By: Ada Valentin on 34-11-1967Eqlobtbbngk/100 WBC (Bld)74.5 %Normal.[facility] HospitalComment on above:Performed By: #### BMP, CBC ####[place] [address] USANo Panel InformationOrdered By: Ada Valentin on 98-82-5262Pcxkmburg GFR (CKD-EPI)> 60.0 mL/MinVan Wert County HospitalPharmacy Creatinine Clearance (Qcla284.50Van W[facility] County HospitalNucleated erythrocytes [Presence] in Blood by Automated countOrdered By: Ada Valentin on 68-80-3789Irenrtviq RBC Auto Ql (Bld)0.1 /100{WBC}0-0.5FBerger HospitalPlatelet mean volume [Entitic volume] in Blood by Automated countOrdered By: Ada Valentin on 54-95-8278Dxhbivzd mean volume (Bld) [Entitic vol]9.5 fLNormal6.6-10.1FBerger HospitalComment on above:Performed By: #### BMP, CBC ####[place] [address] USAPlatelets [#/volume] in Blood by Automated countOrdered By: Ada Valentin on 27-07-0165Tmvwldmoe (Bld) [#/Vol] 161 10*3/uLSignificant change hdqz381-392SmgptxkguVan Wert County Hospital Comment on above:Delta: 218 on 09/30/24-1421Performed By: #### BMP, CBC ####[place] [address] [place] [id number] [place] Potassium [Moles/volume] in Serum or PlasmaOrdered By: Ada Valentin on 10-01-2024 Potassium [Moles/Vol]3.6 mmol/LNormal3.5-5.1FBerger Hospital Comment on above:Performed By: #### BMP, CBC ####[facility] [place] [id number] USASerum or plasma anion gap determinationOrdered By: Ada Valentin on 12-03-4473Dwxap gap [Moles/Vol]9.2 mmol/LNormal6.0-15.0[facility] HospitalComment on above:Performed By: #### BMP, CBC ####[place] [id number] USASodium [Moles/volume] in Serum or PlasmaOrdered By: Ada Valentin on 00-14-1754Yffhzs [Moles/Vol]135 mmol/CBmr134-190WohyarlkvVan Wert County HospitalComment on above:Performed By: #### BMP, CBC ####[place] [address] [place] [id number] USAUrea nitrogen [Mass/volume] in Serum or PlasmaOrdered By: Ada Valentin on 56-12-2342Tlvy nitrogen [Mass/Vol]17 mg/dLNormal7-25Van [facility] County HospitalComment on above:Performed By: #### BMP, CBC ####[place] [address] [place] [id number] USAAppearance of UrineOrdered By: Radha Medina on 04-26-9683Hhjvuxgbvj (U)ClearNoalCRiverview Health InstituteComment on above:Order Comment: Name Collection Type:: Clean-Voided MidstreamPerformed By: #### BMP, PT #### [facility] [address] [place] [id number] USABNP ser/plasOrdered By: Radha Medina on 09-30-2024 Natriuretic peptide B (Bld) [Mass/Vol]308.0 pg/mLHigh5-100Van [facility] County HospitalComment on above:Result Comment: PERFORMED BY: [place] [address] PATHOLOGIST [employer] RAYN ALMARAZ M.D.Performed By: #### PT #### [facility] [address] [place] [address] USABacteria [Presence] in Urine by AutomatedOrdered By: Radha Medina on 66-73-6816Snqvbjfo Auto Ql (U)Rare [HPF]None SeenVan Wert County HospitalBasic Metabolic Panelon 18-96-1811Wjwiv gap [Moles/Vol] 13.3 mmol/LNormal6.0-15.0The [facility] Physician GroupComment on above:Performed By: #### PT #### [facility] [address] [place] [address] USACalcium [Mass/Vol]9.3 mg/dLNormal8.6-10.3The [facility] Physician GroupComment on above:Performed By: #### PT #### [facility] [address] [place] [address] USAChloride [Moles/Vol]101 mmol/YQbavyd87-696Trc [facility] Physician [facility] HospitalComment on above:Performed By: #### PT #### [facility] [address] [place] [address] USACO2 [Moles/Vol]24.7 mmol/QSwoqcq68.0-31.0The [facility] Physician GroupComment on above:Performed By: #### PT #### [facility] [address] [place] [address] USACreatinine [Mass/Vol]1.32 mg/dLSignificant change down 0.70-1.30The [facility] Physician GroupComment on above:Performed By: #### PT #### [facility] [address] [place] [address] USACreatinine Clr Calc Nmmbfszw45.94NormalThe [facility] Physician GroupComment on above:Result Comment: PERFORMED BY: [place] [address] PATHOLOGIST [employer] RYAN ALMARAZ M.D.Performed By: #### PT #### [place] [address] USAGFR/1.73 sq M.predicted MDRD (S/P/Bld) [Vol rate/Area] mL/min/{1.73_m2}NormalThe [facility] Physician GroupComment on above:Performed By: #### PT #### [place] [address] USAGlucose [Mass/Vol]171 mg/jKUinl61-130Chx [facility] Physician GroupComment on above:Result Comment: Random Glucose Reference Range is dependent on time and content of last meal. Glucose of more than 200 mg/dL in a nonstressed, ambulatory subject supports the diagnosis of Diabetes Mellitus. ADA recommended reference rangePerformed By: #### PT #### [place] [address] USAPotassium [Moles/Vol]4.0 mmol/LNormal3.5-5.1The [facility] Physician GroupComment on above:Performed By: #### PT #### [place] [address] USASodium [Moles/Vol]135 mmol/HLef232-864Vpg [facility] Physician GroupComment on above:Performed By: #### PT #### [place] [address] USAUrea nitrogen [Mass/Vol]17 mg/dLNormal7-25The [facility] Physician GroupComment on above:Performed By: #### PT #### [place] [address] USABilirubin Test strip Ql (U)Ordered By: Radha Medina on 16-13-4973Nozlesukd Ql (U)NegativeNegativeVan Wert County HospitalBlood Cultureon 06-12-0112Ypjarmry identified Cx Nom (Bld)NO GROWTH 5 DAYS PERFORMED BY: [place] [address] PATHOLOGIST [employer] RYAN ALMARAZ M.D.[facility] Physician GroupComment on above: Performed By: #### BREANNELD, LACTIC ####[place] [address] [place] [id number] USABacteria identified Cx Nom (Bld)NO GROWTH 5 DAYS PERFORMED BY: [address] [place] [address] PATHOLOGIST [employer] RYAN ALMARAZ M.D.[facility] Physician GroupComment on above: Performed By: #### BREANNELD, LACTIC ####[place] [id number] USACT head/brain wo conon 89-47-0564TK head/brain wo [facility] [place] [address] [place] [address] CT Scan Report Signed Patient: Esme tSeven MR#: [id number] : 1960 Acct:[id number] Age/Sex: 63 / M ADM Date: 09/30/24 Loc: Room: [address] [place] [address] Type: DIS INOo Attending Dr: Leidy Nuno [...] Paul M.D. 09/30/2024 4:34 PM Dictation Location: [place] [address] Transcribed By: [facility] 09/30/24 1634 Dictated By: Ap Paul MD 09/30/24 1630 Signed By: 09/30/24 1634NoPending sale to [facility] Physician GroupColor of Urine by AutoOrdered By: Radha Medina on 99-84-8837Qrscl (U)YellowNoThe Surgical Hospital at SouthwoodsComment on above:Order Comment: Name Collection Type:: Clean- Voided MidstreamPerformed By: #### BMP, PT #### [place] [address] USAComplete Blood Count Auto Diffon 53-36-9827Qjpjckkwh (Bld) [#/Vol]0.1 10*3/uLNormal0.0-0.2The [facility] Physician GroupComment on above: Result Comment: PERFORMED BY: [place] [address] PATHOLOGIST [employer] RYAN ALMARAZ M.D.Performed By: #### BMP, PT #### [place] [address] USABasophils/100 WBC (Bld)0.6 %Normal.The [facility] Physician GroupComment on above:Performed By: #### BMP, PT #### [place] [address] USAEosinophils (Bld) [#/Vol]0.0 10*3/uLNormal0.0-0.45The [facility] Physician GroupComment on above:Performed By: #### BMP, PT #### [place] [address] USAEosinophils/100 WBC (Bld)0.2 %Normal.The [facility] Physician GroupComment on above:Performed By: #### BMP, PT #### [place] [address] USAErythrocyte distribution width (RBC) [Ratio]14.0 %Normal 12.0-14.8The [facility] Physician GroupComment on above:Performed By: #### BMP, PT #### [facility] [address] [place] [address] USAHematocrit (Bld) [Volume fraction]51.1 %High38.8-50.0The [facility] Physician GroupComment on above:Performed By: #### BMP, PT #### [place] [address] USAHemoglobin (Bld) [Mass/Vol]17.3 g/fWXfnc04.0-17.0The [facility] Physician GroupComment on above:Performed By: #### BMP, PT #### [place] [address] USALymphocytes (Bld) [#/Vol]1.9 10*3/uLNormal1.00-4.8The [facility] Physician GroupComment on above:Performed By: #### BMP, PT #### [place] [address] USALymphocytes/100 WBC (Bld)11.5 %Normal.The [facility] Physician GroupComment on above:Performed By: #### BMP, PT #### [place] [address] USAMCH (RBC) [Entitic mass]34.4 ztZzojlp92.5-35.2The [facility] Physician GroupComment on above:Performed By: #### BMP, PT #### [place] [address] USAMCV (RBC) [Entitic vol]101.9 hUZbtz56.5-101The [facility] Physician GroupComment on above:Performed By: #### BMP, PT #### [place] [address] USAMean Corpuscular HGB Conc33.8 g/gSMumulh18.5-35.6The [facility] Physician GroupComment on above:Performed By: #### BMP, PT #### [place] [address] USAMonocytes (Bld) [#/Vol]0.7 10*3/uLNormal0.0-0.8The [facility] Physician GroupComment on above:Performed By: #### BMP, PT #### [facility] [address] [place] [address] USAMonocytes/100 WBC (Bld)22.40 %High0.00-20.00The [facility] Physician GroupComment on above:Result Comment: For adults in ED, MDW > 20.0 may be associated with a higher risk of sepsis during the first 12 hrs of hospital admissionPerformed By: #### BMP, PT #### [facility] [address] [place] [address] USAMonocytes/100 WBC (Bld)3.9 %Normal.The [facility] Physician GroupComment on above:Performed By: #### BMP, PT #### [facility] [address] [place] [address] USANeutrophils (Bld) [#/Vol]14.2 10*3/uLHigh1.8-7.7The [facility] Physician GroupComment on above:Performed By: #### BMP, PT #### [facility] [address] [place] [address] USANeutrophils/100 WBC (Bld)83.8 %Normal.The [facility] Physician GroupComment on above:Performed By: #### BMP, PT #### [place] [address] USANRBC%0.1 /100{WBC}Normal0-0.5The [facility]ician Group Comment on above:Performed By: #### BMP, PT #### [facility] [address] [place] [id number] USAPlatelet mean volume (Bld) [Entitic vol]9.8 fLNormal 6.6-10.1The [facility] Physician GroupComment on above:Performed By: #### BMP, PT #### [facility] [address] [place] [id number] USAPlatelets (Bld) [#/Vol]218 10*3/hTHdmwma248-610Ryy [facility] Physician GroupComment on above:Performed By: #### BMP, PT #### [facility] [address] [place] [address] USARBC (Bld) [#/Vol]5.01 10*6/uLNormal3.90-5.60The [facility] Physician GroupComment on above:Performed By: #### BMP, PT #### [facility] [address] [place] [address] USAWBC (Bld) [#/Vol]16.9 10*3/uLHigh4.1-10.5The [facility] Physician GroupComment on above:Performed By: #### BMP, PT #### [facility] [address] [place] [address] USAWhite Blood Count16.9 [CFU]/mLHigh4.1-10.5The [facility] Physician GroupComment on above:Performed By: #### BMP, PT #### [place] [address] USACreatine kinase [Enzymatic activity/volume] in Serum or PlasmaOrdered By: Radha Medina on 11-34-1905JY [Catalytic activity/Vol]18 U/L Tqe59-923JpqjcopvzVan Wert County HospitalComment on above:Performed By: #### PT #### [place] [address] USADipstick and Microscopicon 33-79-3370Zbdshxzf,UrineRare NormalNone SeenThe [facility] Physician GroupComment on above:Order Comment: Name Collection Type:: Clean-Voided MidstreamPerformed By: #### BMP, PT #### [place] [address] USABilirubin,UrineNegativeNormalNegativeThe [facility] Physician GroupComment on above:Order Comment: Name Collection Type:: Clean- Voided MidstreamPerformed By: #### BMP, PT #### [place] [address] USAGlucose Ql (U)70 mg/dLNormalNormalThe [facility] Physician GroupComment on above:Order Comment: Name Collection Type:: Clean-Voided MidstreamPerformed By: #### BMP, PT #### [place] [address] USAHyaline Casts,Agcdo01-99Qdcwrk1-7Jit [facility] Physician GroupComment on above:Order Comment: Name Collection Type:: Clean-Voided MidstreamPerformed By: #### BMP, PT #### [place] [address] USAMucus,Urine2+ [LPF]Critically abnormalThe [facility] Physician GroupComment on above:Order Comment: Name Collection Type:: Clean- Voided MidstreamResult Comment: PERFORMED BY: [place] [address] PATHOLOGIST [employer] RYAN ALMARAZ M.D.Performed By: #### BMP, PT #### [place] [address] USANitrite,UrineNegativeNormalNegativeThe [facility] Physician GroupComment on above:Order Comment: Name Collection Type:: Clean-Voided MidstreamPerformed By: #### BMP, PT #### [place] [address] USAOccult Blood,UrineNegativeNormalNegativeThe [facility] Physician GroupComment on above:Order Comment: Name Collection Type:: Clean- Voided MidstreamResult Comment: PERFORMED BY: [place] [address] PATHOLOGIST [employer] RYAN ALMARAZ M.D.Performed By: #### BMP, PT #### [place] [address] USARBC,Gowrt7-5Hatsyq6-7Hmc [facility] Physician GroupComment on above:Order Comment: Name Collection Type:: Clean-Voided MidstreamPerformed By: #### BMP, PT #### [place] [address] USASpecificy [place],Urine1.344Vdmaol5.001-1.030The [facility] Physician GroupComment on above:Order Comment: Name Collection Type:: Clean- Voided MidstreamPerformed By: #### BMP, PT #### [facility] [address] [place] [address] USASquamous Epithelial Cell,Zbcbo6-4Haydmb5-5Kuo [facility] Physician GroupComment on above:Order Comment: Name Collection Type:: Clean- Voided MidstreamPerformed By: #### BMP, PT #### [facility] [address] [place] [address] USAUrobilinogen,UrineNormalNormalNormalThe [facility] Physician GroupComment on above:Order Comment: Name Collection Type:: Clean- Voided MidstreamPerformed By: #### BMP, PT #### [facility] [address] [place] [address] USAWBC,Bqfrc0-1Jbxztt3-7Gxi [facility] Physician GroupComment on above:Order Comment: Name Collection Type:: Clean-Voided MidstreamPerformed By: #### BMP, PT #### [facility] [address] [place] [address] USAECG 12 lead ECGon 60-23-2530BGM 12 lead ECGTHE SURGICAL [facility] [place] [address] [place], [place] [address] Electrocardiograph Report Signed Patient: Esme Steven MR#: [id number] : 1960 Acct:[id number] Age/Sex: 63 / M ADM Date: 09/30/24 Loc: Room: [address] [place] [address] Type: ADM INOo Attending Dr: Leidy Nuno [...] wave abnormality Confirmed by Radha Medina MD ([id number]) on 09/30/2024 9:27:27 PM Referred By: Electronically Signed By: Radha Medina MD Transcribed By: MUS Signed By Radha Medina MD 09/08NoPending sale to [facility] Physician GroupEpithelial cells.squamous [#/area] in Urine sediment by Automated countOrdered By: Radha Medina on 09-30-2024 Epithelial cells.squamous Auto (Urine sed) [#/Area]1-2 [HPF]0-2FBerger HospitalErythrocytes [#/area] in Urine sediment by Automated countOrdered By: Radha Medina on 89-59-9003HGG Auto (Urine sed) [#/Area]1-2 [HPF]0-4FBerger HospitalGlucose [Mass/volume] in Urine by Test stripOrdered By: Radha Medina on 35-00-8565Xiesgow Test strip (U) [Mass/Vol]70 mg/dLHampshire Memorial HospitalNoMain Campus Medical CenterHemoglobin Test strip Ql (U) Ordered By: Radha Medina on 86-85-7006Gjonoojdss Ql (U)NegativeNegative [facility] HospitalHyaline casts [#/area] in Urine sediment by Automated countOrdered By: Radha Medina on 54-17-4324Awbdwod casts Auto (Urine sed) [#/Area]20-49 [LPF]High0-8[facility] HospitalINR in Platelet poor plasma by Coagulation assayOrdered By: Radha Medina on 32-78-6625AKL Coag (PPP) [Relative time]1.0 {INR}[facility] Comment on above:INR Therapeutic Range A) Pre- and Peroperative OAT started two weeks before surgery. NOT HIP SURGERY: 1.5 - 2.5 HIP SURGERY: 2 - 3B) Primary and secondary prevention of venous THROMBOSIS: 2 - 3C) Active venous thrombosis, pulmonary embolismand prevention of recurrent venous thrombosis: 2 - 3D) Preve ntion of arterial thromboembolismincluding patients with mechanical heart valves: 3 - 4.5Result Comment: INR Therapeutic Range A) Pre- and [...] heart valves: 3 - 4.5 PERFORMED BY: [place] [id number] PATHOLOGIST CHIL[employer] RYAN ALMARAZ M.D.Performed By: #### PT #### [place] [address] USAKetones [Presence] in Urine by Test stripOrdered By: Radha Medina on 05-50-5075Vcsozuv Ql (U)NegativeNormalNegativeVan Wert County HospitalComment on above:Order Comment: Name Collection Type:: Clean-Voided MidstreamPerformed By: #### BMP, PT #### [place] [id number] USALaboratory - Microbiology and Antimicrobial susceptibility Ordered By: Radha Medina on 72-23-0396Opgadbal identified Cx Nom (Bld)NO GROWTH 5 DAYSVan Wert County HospitalBacteria identified Cx Nom (Bld)NO GROWTH 5 DAYSVan Wert County HospitalLactic Acidon 61-25-5637Zyvubii [Moles/Vol]2.2 mmol/LOff scale high0.5-1.9The [facility] Physician GroupComment on above:Result Comment: Critical Result : Called to and read back by: EVELYN TODD at: 09/30/2024 16:27:07 by:[id number] Lactic Acid reference range has been updated to 0.5 ? 1.9 mmol/L and the critical range of 2.0 or greater. PERFORMED BY: [address] [address] PATHOLOGIST [employer] RYAN ALMARAZ M.D.Performed By: #### CUBLD, LACTIC ####[facility] [address] [place] [address] USALactic Acid Reflexon 67-35-7941Abapcy Acid Reflex2.4 mmol/LOff scale high0.5-1.9The [facility] Physician GroupComment on above:Result Comment: Critical Result : Called to and read back by: SHAHRZAD DIAZ at: 09/30/2024 20:32:04 by:HEATHER Lactic Acid reference range has been updated to 0.5 ? 1.9 mmol/L and the critical range of 2.0 or greater. PERFORMED BY: [place] [address] PATHOLOGIST CHIL[employer] RYAN ALMARAZ M.D.Performed By: #### BMP, PT #### [place] [address] USALeukocyte esterase [Presence] in Urine by Test strip Ordered By: Radha Medina on 85-80-5479Jjqlkvujv esterase Test strip Ql (U) NegativeNormalNegMcKitrick HospitalComment on above:Order Comment: Name Collection Type:: Clean-Voided MidstreamPerformed By: #### BMP, PT #### [place] [address] USALeukocytes [#/area] in Urine sediment by Automated count Ordered By: Radha Medina on 94-46-1655OGK Auto (Urine sed) [#/Area]1-2 [HPF] 0-4FBerger HospitalMonocyte distribution width [Entitic volume] in Blood by AutomatedOrdered By: Radha Medina on 11-25-3793Tnhqhgxx distribution width Auto (Bld) [Entitic vol]22.40 %High0.00-20.00[facility] HospitalComment on above:For adults in ED, MDW > 20.0 may be associated with a higher risk of sepsis during the first 12 hrs of hospital admissionMucus [Presence] in Urine by AutomatedOrdered By: Radha Medina on 16-83-3838Yhuyk Auto Ql (U)2+ [LPF]AbnormalVan Wert County Hospital Nitrite Test strip Ql (U)Ordered By: Radha Medina on 75-85-6873Tokmkyw Ql (U) NegativeNegMcKitrick HospitalProtein [Mass/volume] in Urine by Test stripOrdered By: Radha Medina on 84-33-6003Vjpvvtt (U) [Mass/Vol]20 mg/dLNormalNegMcKitrick HospitalComment on above:Order Comment: Name Collection Type:: Clean-Voided MidstreamPerformed By: #### BMP, PT #### [place] [id number] USAProthrombin time (PT)Ordered By: Radha Medina on 33-87-3150KC Coag (PPP) [Time]11.8 sNormal9.0-12.9[facility] HospitalComment on above:A hematocrit value greater than 55% may lead to inaccurate results in coagulation testing. Patientshaving hematocrit values >55% require a special collection tube for coagulation studies. Please contact the laboratory at [phone] for redraw instructions.Result Comment: A hematocrit value greater than 55% may lead to inaccurate results in coagulation testing. Patients having hematocrit values >55% require a special collection tube for coagulation studies. Please contact the laboratory at [phone] for redraw instructions.Performed By: #### PT #### [place] [id number] USASpecific gravity Test strip (U) [Rel density]Ordered By: Radha Medina on 65-89-1821Gwrpaskn gravity (U) [Rel density]1.0281.001-1.030 [facility] HospitalTroponin I High Sensitivityon 09-30-2024 Troponin I High Enlowwlpfep75Gymnwm6-90Rew [facility] Physician GroupComment on above:Result Comment: The Troponin units of report have been changed to meet the Chest Pain Accreditation requirement, element EC5.M1l2. Troponin units are changed from pg/ml to ng/L. Also, the decimal is removed and results are in whole numbers. PERFORMED BY: [place] [address] PATHOLOGIST [employer] RYAN ALMARAZ M.D.Performed By: #### PT #### [facility] [address] [place], [place] [address] USATroponin I.cardiac [Mass/volume] in Serum or Plasma by Detection limit <= 0.01 ng/mLOrdered By: Radha Medina on 91-60-4701Yhxnggft I.cardiac DL <= 0.01 ng/mL [Mass/Vol]12 ng/L0-20[facility] HospitalComment on above:The Troponin units of report have been changed to meet the Chest Pain Accreditation requirement, element EC5.M1l2. Troponin units are changed from pg/ml to ng/L. Also, the decimal is removed and results are in whole numbers.Urine Cultureon 71-47-2476Ilgjfzus identified Cx Nom (U)No Growth 2 Days PERFORMED BY: [place] [address] PATHOLOGIST [employer] RYAN ALMARAZ M.D.NormalThe [facility] Physician GroupComment on above: Performed By: #### BMP, PT #### [facility] [address] [place] [address] USAUrine cultureOrdered By: Radha Medina on 09-30-2024 Bacteria identified Cx Nom (U)No Growth 2 DaysVan [facility] Hospital Urobilinogen Test strip (U) [Mass/Vol]Ordered By: Radha Medina on 09-30-2024 Urobilinogen (U) [Mass/Vol]Normal mg/dLNormalVan Wert County HospitalX- ray reportOrdered By: Alex Castro on 08-27-4686Aywwv reportTHE [facility]GICAL [facility] [place] [address] [place] [address] XRay Report Signed Patient: Esme Steven MR#: [id number] : 1960 Acct:[id number] Age/Sex: 63 / M ADM Date: 5 Loc: ER Room: Type: [facility] ER Attending Dr: Copies to: Radha [...] Jr., D.OBarbara 09/30/2024 2:56 PM Dictation Location: [place] [address] Transcribed By: [facility] 09/30/24 1456 Dictated By: Alex Castro Jr, DO 09/30/24 1454 Signed By: 09/30/24 1456 [facility] HospitalXR chest 1V portableon 63-89-4269HS chest 1V portableTHE [facility]GICAL [facility] [place] [address] [place], [place] [address] XRay Report Signed Patient: Esme Steven MR#: [id number] : 1960 Acct:[id number] Age/Sex: 63 / M ADM Date: 09/30/24 Loc: Room: [address] [place] [address] Type: DIS INOo Attending Dr: Leidy Nuno [...] FINDINGS Impression dictated by: Alex Castro Jr., DSushant 09/30/2024 2:56 PM Dictation Location: [place] [address] Transcribed By: [facility] 09/30/24 1456 Dictated By: Alex Castro Jr, DO 09/30/24 1454 Signed By: 09/30/[address] [place] [address] Physician GrouppH of Urine by Test stripOrdered By: Radha Medina on 33-06-6489fL (U)5.5 [pH]Normal5.0-9.0[facility] HospitalComment on above:Order Comment: Name Collection Type:: Clean- Voided MidstreamPerformed By: #### BMP, PT #### [facility] [address] [place] [address] USABNP ser/plasOrdered By: Salinas Ascencio on 09-29-2024 Natriuretic peptide B (Bld) [Mass/Vol]417.0 pg/mLHigh5-100Van [facility] HospitalComment on above:Result Comment: PERFORMED BY: [place] [address] PATHOLOGIST [employer] RYAN ALMARAZ M.D.Performed By: #### PT #### [place] [address] USABasic Metabolic Panelon 80-99-1516Wsnvjbqhfh Clr Calc Bcciffit932.50NoPending sale to [facility] Physician GroupComment on above:Order Comment: FASTING YPerformed By: #### PT #### [facility] [address] [place] [address] USAGFR/1.73 sq M.predicted MDRD (S/P/Bld) [Vol rate/Area] mL/min/{1.73_m2}NormalThe [facility] Physician GroupComment on above:Order Comment: FASTING YPerformed By: #### PT #### [place] [address] USABasophils [#/volume] in Blood by Automated countOrdered By: Salinas Ascencio on 17-72-0392Qkqinxkol (Bld) [#/Vol]0.1 10*3/uLNormal 0.0-0.2FBerger HospitalComment on above:Result Comment: PERFORMED BY: [place] [address] PATHOLOGIST [employer] RYAN ALMARAZ M.D.Performed By: #### PT #### [facility] [address] [place] [address] USABasophils/100 leukocytes in Blood by Automated count Ordered By: Salinas Ascencio on 85-55-8998Jetocckzo/100 WBC (Bld)1.0 %Normal .[facility] HospitalComment on above:Performed By: #### PT #### [place] [address] USACalcium [Mass/volume] in Serum or PlasmaOrdered By: Salinas Ascencio on 72-42-1638Fhyythb [Mass/Vol]8.9 mg/dLNormal8.6-10.3 [facility] HospitalComment on above:Order Comment: FASTING Y Performed By: #### PT #### [facility] [address] [place] [address] USACarbon dioxide, total [Moles/volume] in Serum or Plasma Ordered By: Salinas Ascencio on 69-06-0630PE3 [Moles/Vol]24.6 mmol/LNormal 21.0-31.0[facility] HospitalComment on above:Order Comment: FASTING YPerformed By: #### PT #### [facility] [address] [place] [id number] USAChloride [Moles/volume] in Serum or PlasmaOrdered By: Salinas Ascencio on 84-91-1757Bazdrqxz [Moles/Vol]104 mmol/QKvqxpq63-136 [facility] HospitalComment on above:Order Comment: FASTING Y Performed By: #### PT #### [address] [address] USACholesterol [Mass/volume] in Serum or PlasmaOrdered By: Salinas Ascencio on 77-95-8568Sacpbovvdst [Mass/Vol]194 mg/kHYpzxlb408-743 [facility] HospitalComment on above:Chol less than 200 mg/dl low riskChol 201-239 mg/dl borderline riskChol 240 mg/dl and greater high riskOrder Comment: FASTING YResult Comment: Chol less than 200 mg/dl low risk Chol 201-239 mg/dl borderline risk Chol 240 mg/dl and greater high riskPerformed By: #### PT #### [facility] [address] [place] [address] USACholesterol in HDL [Mass/volume] in Serum or PlasmaOrdered By: Salinas Ascencio on 10-42-3554Qtywngysliv in HDL [Mass/Vol]36 mg/dL Febbjx79-91ZatzguanhVan Wert County HospitalComment on above:HDL CHOL ATP-III CLASSIFICATION Cardiovascular RiskHDL > or equal to 60 mg/dL LOWHDL < 40 mg/dL HIGHOrder Comment: FASTING YResult Comment: HDL CHOL ATP-III CLASSIFICATION Cardiovascular Risk HDL > or equal to 60 mg/dL LOW HDL < 40 mg/dL HIGHPerformed By: #### PT #### [facility] [address] [place] [id number] USACholesterol in LDL Calc [Mass/Vol]Ordered By: Salinas Ascencio on 85-61-0435Dhbdtgfwqjs in LDL [Mass/Vol]103 mg/dLHigh0-100[facility] HospitalComment on above:LDL ATP III CLASSIFICATIONLDL less than 100 mg/dL OptimalLDL 100-129 mg/dL Near or above mfcpmezUEO429-581 mg/dL Borderline highLDL 160-189 mg/dL HighLDL greater than 189 mg/dL Very high Cholesterol in VLDL Calc [Mass/Vol]Ordered By: Salinas Ascencio on 80-77-2084Bmptzavrjdu in VLDL [Mass/Vol]54 mg/dLVan Wert County HospitalComplete Blood Count Auto Diffon 12-68-7561Kyye Corpuscular HGB Conc33.7 g/dVCpysca58.5-35.6The [facility] Physician GroupComment on above:Performed By: #### PT #### [facility] [address] [place] [address] USANRBC%0.2 /100{WBC}Normal0-0.5[facility] Physician Group Comment on above:Performed By: #### PT #### [place] [address] USAWhite Blood Count13.0 [CFU]/mLHigh4.1-10.5The [facility] Physician GroupComment on above:Performed By: #### PT #### [facility] [address] [place] [address] USACreatinine [Mass/volume] in Serum or PlasmaOrdered By: Salinas Ascencoi on 04-44-9270Aupwfzhiid [Mass/Vol]0.80 mg/dLNormal0.70-1.30 [facility] HospitalComment on above:Order Comment: FASTING Y Performed By: #### PT #### [place] [address] USAECG 12 lead ECGon 82-57-2258BCT 12 lead ECGTHE SURGICAL [facility] [place] [address] [place] [address] Electrocardiograph Report Signed Patient: Esme Steven MR#: [id number] : 1960 Acct:[id number] Age/Sex: 63 / M ADM Date: 09/29/24 Loc: Room: [address] [place] [address] Type: ADM INOo Attending Dr: Tomy Cabello [...] for LVH, may be normal variant ( [place] product ) T wave abnormality, consider lateral ischemia Abnormal ECG When compared with ECG of 29-Sep-2024 03:23, (Unconfirmed) T wave inversion now evident in Lateral leads Confirmed by Will Koch ([id number]) on 09/29/2024 2:14:15 PM Referred By: Electronically Signed By: Will Koch Transcribed By: MUS Signed By Will Koch MD 09/29/[address] [place] [address] Physician GroupECG 12 lead [facility] [place] [address] [place] [address] Electrocardiograph Report Signed Patient: Esme Steven MR#: [id number] : 1960 Acct:[id number] Age/Sex: 63 / M ADM Date: 09/29/24 Loc: Room: [address] [place] [address] Type: ADM INOo Attending Dr: Tomy Cabello [...] undetermined Abnormal ECG Confirmed by Will Koch ([id number]) on 09/29/2024 2:14:06 PM Referred By: Electronically Signed By: Will Koch Transcribed By: MUS Signed By Will Koch MD 09/29/24 1414[facility] Physician GroupEosinophils [#/volume] in Blood by Automated countOrdered By: Salinas Ascencio on 65-09-6479Tecvfqldidn (Bld) [#/Vol]0.1 10*3/uLNormal0.0-0.45[facility] HospitalComment on above:Performed By: #### PT #### [place] [address] USAEosinophils/100 leukocytes in Blood by Automated count Ordered By: Salinas Ascencio on 14-16-1019Vreiykqzbqh/100 WBC (Bld)0.6 % Normal.[facility] HospitalComment on above:Performed By: #### PT #### [facility] [address] [place] [address] USAErythrocyte distribution width [Ratio] by Automated count Ordered By: Salinas Ascencio on 82-96-6835Rigtsamyubw distribution width (RBC) [Ratio]14.3 %Vgrnlj14.0-14.8[facility] HospitalComment on above:Performed By: #### PT #### [facility] [address] [place] [address] USAErythrocytes [#/volume] in Blood by Automated countOrdered By: Salinas Ascencio on 52-11-1028GFK (Bld) [#/Vol]4.62 10*6/uLNormal 3.90-5.60[facility] HospitalComment on above:Performed By: #### PT #### [place] [address] USAGlucose [Mass/volume] in Serum or PlasmaOrdered By: Salinas Ascencio on 29-14-2954Fwhlqdo [Mass/Vol]91 mg/tXJjujki30-834 [facility] HospitalComment on above:ADA recommended reference rangeRandom Glucose Reference Range is dependent on time and content of last meal. Glucose of more than 200 mg/dL in a nonstressed, ambulatory subject supports the diagnosisof Diabetes Mellitus.Order Comment: FASTING YResult Comment: Random Glucose Reference Range is dependent on time and content of last meal. Glucose of more than 200 mg/dL in a nonstressed, ambulatory subject supports the diagnosis of Diabetes Mellitus. ADA recommended reference rangePerformed By: #### PT #### [place] [address] USAHematocrit [Volume Fraction] of Blood by Automated count Ordered By: Salinas Ascencio on 42-87-5490Mxzvuiznrn (Bld) [Volume fraction] 47.6 %Kyipct92.8-50.0[facility] HospitalComment on above:Performed By: #### PT #### [place] [id number] USAHemoglobin [Mass/volume] in BloodOrdered By: Salinas Ascencio on 21-47-3316Dnndgowyxb (Bld) [Mass/Vol]16.0 g/sZNgtwco29.0-17.0 [facility] HospitalComment on above:Performed By: #### PT #### [place] [id number] USAINR in Platelet poor plasma by Coagulation assayOrdered By: Salinas Ascencio on 59-85-2525ARG Coag (PPP) [Relative time]1.0 {INR} [facility] HospitalComment on above:INR Therapeutic Range A) Pre- and Peroperative OAT started two weeks before surgery. NOT HIP SURGERY: 1.5 - 2.5 HIP SURGERY: 2 - 3B) Primary and secondary prevention of venous THROMBOSIS: 2 - 3C) Active venous thrombosis, pulmonary embolismand prevention of recurrent venous thrombosis: 2 - 3D) Prevention of arterial thromboembolismincluding patients with mechanical heart valves: 3 - 4.5Result Comment: INR Therapeutic Range A) Pre- and [...] patients with mechanical heart valves: 3 - 4.5Performed By: #### LYTES #### [facility] [address] [place] [id number] USALeukocytes [#/volume] corrected for nucleated erythrocytes in Blood by Automated counOrdered By: Salinas Ascencio on 22-68-9436GDS corrected for nucl RBC Auto (Bld) [#/Vol]13.0 10*3/uLHigh4.1-10.5FBerger HospitalLeukocytes [#/volume] in Blood by Automated countOrdered By: Salinas Ascencio on 07-26-8152JSN (Bld) [#/Vol]13.0 10*3/uLHigh4.1-10.5 [facility] HospitalComment on above:Performed By: #### PT #### [facility] [address] [place] [id number] USALipid Panelon 20-07-3413WPJ Cholesterol,Laazvtqobq692 mg/dLHigh0-100The [facility] Physician GroupComment on above:Order Comment: FASTING YResult Comment: LDL ATP III CLASSIFICATION LDL less than 100 mg/dL Optimal LDL 100-129 mg/dL Near or above optimal LDL 130-159 mg/dL Borderline high LDL 160-189 mg/dL High LDL greater than 189 mg/dL Very highPerformed By: #### PT #### [facility] [address] [place] [id number] USATriglyceride w/Jekwgg288 mg/dLHigh0-149The [facility] Physician GroupComment on above:Order Comment: FASTING YResult Comment: TRIG ATP III CLASSIFICATION TRIG less than 150 mg/dL Normal TRIG 150-199 mg/dL Borderline high TRIG 200-500 mg/dL High TRIG greater than 500 mg/dL Very high Standard traceable to the Center for Disease Conrtrol and Prevention (CDC) test method.Performed By: #### PT #### [address] [address] USAVLDL UYYPAWVKXPV43 mg/dLNoPending sale to [facility] Physician GroupComment on above:Order Comment: FASTING YPerformed By: #### PT #### [facility] [address] [place] [address] USALymphocytes [#/volume] in Blood by Automated countOrdered By: Salinas Ascencio on 38-52-6400Igntuqjhwdu (Bld) [#/Vol]2.2 10*3/uLNormal 1.00-4.8[facility] HospitalComment on above:Performed By: #### PT #### [facility] [address] [place] [address] USALymphocytes/100 leukocytes in Blood by Automated count Ordered By: Salinas Ascencio on 42-65-4074Dpivqohbduj/100 WBC (Bld)16.8 % Normal.[facility] HospitalComment on above:Performed By: #### PT #### [place] [address] USAMCH [Entitic mass] by Automated countOrdered By: Salinas Ascencio on 17-44-7231GYE (RBC) [Entitic mass]34.7 lsDxcjia60.5-35.2 [facility] HospitalComment on above:Performed By: #### PT #### [facility] [address] [place] [address] Auto (RBC) [Mass/Vol]Ordered By: Salinas Ascencio on 26-50-6815BJXP (RBC) [Mass/Vol]33.7 g/dL32.5-35.6FBerger HospitalMCV [Entitic volume] by Automated countOrdered By: Salinas Ascencio on 20-36-3579XKF (RBC) [Entitic vol]103.0 nTDmnk66.5-101[facility] HospitalComment on above:Performed By: #### PT #### [place] [address] USAMagnesium [Mass/volume] in Serum or PlasmaOrdered By: Salinas Ascencio on 20-77-5938Ouvfzuwmm [Mass/Vol]1.6 mg/dLLow1.9-2.7 [facility] HospitalComment on above:Order Comment: FASTING Y Performed By: #### PT #### [place] [address] USAMonocytes [#/volume] in Blood by Automated countOrdered By: Salinas Ascencio on 72-24-7882Cxcykmrxl (Bld) [#/Vol]1.1 10*3/uLHigh 0.0-0.8[facility] HospitalComment on above:Performed By: #### PT #### [place] [address] USAMonocytes/100 leukocytes in Blood by Automated count Ordered By: Salinas Ascencio on 31-06-1799Psxpgcdhj/100 WBC (Bld)8.8 %Normal .[facility] HospitalComment on above:Performed By: #### PT #### [place] [address] USANeutrophils [#/volume] in Blood by Automated countOrdered By: Salinas Ascencio on 71-07-7242Blnmjdtyejs (Bld) [#/Vol]9.4 10*3/uLHigh 1.8-7.7FBerger HospitalComment on above:Performed By: #### PT #### [facility] [address] [place], [place] [address] USANeutrophils/100 leukocytes in Blood by Automated count Ordered By: Salinas Ascencio on 68-35-8057Qinhxxjyugx/100 WBC (Bld)72.8 % Normal.[facility] HospitalComment on above:Performed By: #### PT #### [place] [address] USANo Panel InformationOrdered By: Salinas Ascencio on 43-64-0151Ojgvwvsnq GFR (CKD-EPI)> 60.0 mL/MinVan Wert County Hospital Pharmacy Creatinine Clearance (Bodg348.50[facility] Nucleated erythrocytes [Presence] in Blood by Automated countOrdered By: Salinas Ascencio on 97-67-4461Juauivuee RBC Auto Ql (Bld)0.2 /100{WBC}0-0.5 [facility] HospitalPartial Thromboplastin Timeon 50-73-5476ySWG Coag (Bld) [Time]23.1 sLow25.1-36.5The [facility] Physician GroupComment on above:Result Comment: A hematocrit value greater than 55% may lead to inaccurate results in coagulation testing. Patients having hematocrit values >55% require a special collection tube for coagulation studies. Please contact the laboratory at [phone] for redraw instructions. PERFORMED BY: [place] [address] PATHOLOGIST CHILDR[employer]ISTER RYAN ALMARAZ M.D.Performed By: #### LYTES #### [facility] [address] [place] [address] USAPlatelet mean volume [Entitic volume] in Blood by Automated countOrdered By: Salinas Ascencio on 27-42-5236Ycdhmmsj mean volume (Bld) [Entitic vol]9.6 fLNormal6.6-10.1FBerger Hospital Comment on above:Performed By: #### PT #### [facility] [address] [place] [address] USAPlatelets [#/volume] in Blood by Automated countOrdered By: Salinas Ascencio on 09-21-3004Dumnsdfoc (Bld) [#/Vol]184 10*3/uLNormal 150-450[facility] HospitalComment on above:Performed By: #### PT #### [facility] [address] [place] [address] USAPotassium [Moles/volume] in Serum or PlasmaOrdered By: Salinas Ascencio on 73-81-7635Esgipyxyc [Moles/Vol]3.6 mmol/LNormal3.5-5.1 [facility] HospitalComment on above:Hemolysis is present at a level that could interfere with the result.Contact lab if redraw is required Order Comment: FASTING YResult Comment: Hemolysis is present at a level that could interfere with the result. Contact lab if redraw is requiredPerformed By: #### PT #### [place] [id number] USAProthrombin time (PT)Ordered By: Salinas Ascencio on 45-39-3002WL Coag (PPP) [Time]11.5 sNormal9.0-12.9[facility] HospitalComment on above:A hematocrit value greater than 55% may lead to inaccurate results in coagulation testing. Patientshaving hematocrit values >55% require a special collection tube for coagulation studies. Please contact the laboratory at [phone] for redraw instructions.Result Comment: A hematocrit value greater than 55% may lead to inaccurate results in coagulation testing. Patients having hematocrit values >55% require a special collection tube for coagulation studies. Please contact the laboratory at [phone] for redraw instructions.Performed By: #### LYTES #### [place] [id number] USASerum or plasma anion gap determinationOrdered By: Salinas Ascencio on 84-64-6806Lzmar gap [Moles/Vol]11.0 mmol/LNormal6.0-15.0 [facility] HospitalComment on above:Order Comment: FASTING Y Performed By: #### PT #### [place] [address] USASerum or plasma total cholesterol/high density lipoprotein (HDL) cholesterol mass ratOrdered By: Salinas Acsencio on 09-29-2024 Cholesterol.total/Cholesterol in HDL [Mass ratio]5.4 {ratio}Normal<5.0[facility] HospitalComment on above:Order Comment: FASTING YResult Comment: PERFORMED BY: [place] [address] PATHOLOGIST [employer] RYAN ALMARAZ M.D.Performed By: #### PT #### [place] [address] USASodium [Moles/volume] in Serum or PlasmaOrdered By: Salinasdread Ascencio on 95-20-3851Kqhscm [Moles/Vol]136 mmol/AZdlhps743-178 [facility] HospitalComment on above:Order Comment: FASTING Y Performed By: #### PT #### [place] [id number] USATriglyceride [Mass/volume] in Serum or PlasmaOrdered By: Salinas Ascencio on 93-90-6393Dnjdxaboqqwm [Mass/Vol]273 mg/dLHigh0-149 [facility] HospitalComment on above:TRIG ATP III CLASSIFICATIONTRIG less than 150 mg/dL NormalTRIG 150-199 mg/dL Borderline highTRIG 200-500 mg/dL High TRIG greater than 500 mg/dL Very highStandard traceable to the Center for Disease Conrtrol and Prevention (CDC) test method. Troponin I High Sensitivityon 54-36-3023Evidbzsb I High Vepoedbgngu36Binlwb8-22 [facility] Physician GroupComment on above:Result Comment: The Troponin units of report have been changed to meet the Chest Pain Accreditation requirement, element EC5.M1l2. Troponin units are changed from pg/ml to ng/L. Also, the decimal is removed and results are in whole numbers. PERFORMED BY: [place] [address] PATHOLOGIST [employer] RYAN ALMARAZ M.D.Performed By: #### LYTES #### [place] [address] USATroponin I High Ftjsjbbvdlx99Ylxkbz4-07Ttl [facility] Physician GroupComment on above:Result Comment: The Troponin units of report have been changed to meet the Chest Pain Accreditation requirement, element EC5.M1l2. Troponin units are changed from pg/ml to ng/L. Also, the decimal is removed and results are in whole numbers. PERFORMED BY: [place] [id number] PATHOLOGIST [employer] RYAN ALMARAZ M.D.Performed By: #### BMP, PT #### [address] [place] [address] USATroponin I High Kpkosggyinz58Fxtgbg6-79Jlo [facility] Physician GroupComment on above:Result Comment: The Troponin units of report have been changed to meet the Chest Pain Accreditation requirement, element EC5.M1l2. Troponin units are changed from pg/ml to ng/L. Also, the decimal is removed and results are in whole numbers. PERFORMED BY: [place] [id number] PATHOLOGIST [employer] RYAN ALMARAZ M.D.Performed By: #### LYTES #### [address] [address] USATroponin I.cardiac [Mass/volume] in Serum or Plasma by Detection limit <= 0.01 ng/mLOrdered By: Salinas Ascencio on 09-29-2024 Troponin I.cardiac DL <= 0.01 ng/mL [Mass/Vol]10 ng/L0-20[facility] HospitalComment on above:The Troponin units of report have been changed to meet the Chest Pain Accreditation requirement, element EC5.M1l2. Troponin units are changed from pg/ml to ng/L. Also, the decimal is removed and results are in whole numbers.Urea nitrogen [Mass/volume] in Serum or PlasmaOrdered By: Salinas Ascencio on 92-32-9524Zjsv nitrogen [Mass/Vol]20 mg/dLNormal7-25 [facility] HospitalComment on above:Order Comment: FASTING Y Performed By: #### PT #### [address] [address] USAaPTT in Platelet poor plasma by Coagulation assayOrdered By: Salinas Ascencio on 60-44-9974vBDG Coag (PPP) [Time]23.1 sLow25.1-36.5 [facility] HospitalComment on above:A hematocrit value greater than 55% may lead to inaccurate results in coagulation testing. Patientshaving hematocrit values >55% require a special collection tube for coagulation studies. Please contact the laboratory at [phone] for redraw instructions. Basophils Auto (Bld) [#/Vol]Ordered By: aFng Zhu on 97-20-5441Qfjayftyh (Bld) [#/Vol]0.1 10 3/uL0.0-0.1FBerger HospitalBasophils/100 WBC Auto (Bld)Ordered By: Fang Zhu on 93-73-6728Tibycrkjv/100 WBC (Bld)0.4 % 0.2-2.0[facility] HospitalEosinophils/100 WBC Auto (Bld)Ordered By: Fang Zhu on 39-39-2444Cphfxsmkxla/100 WBC (Bld)0.1 %Low0.9-7.0[facility] HospitalErythrocyte distribution width Auto (RBC) [Ratio]Ordered By: Fang Zhu on 27-15-2849Akcuqaglhgf distribution width (RBC) [Ratio]13.0 % 11.0-15.0[facility] HospitalEstimated glomerular filtration rate (GFR) non- AmericanOrdered By: Fang Zhu on 90-16-5565WMC/1.73 sq M.predicted among non-blacks MDRD (S/P/Bld) [Vol rate/Area]58 mL/min/{1.73_m2} Low>=60 mL/min/1.73m 2FBerger HospitalGlobulin Calc (S) [Mass/Vol]Ordered By: Fang Zhu on 05-71-6160Enykpcon (S) [Mass/Vol]3.9 g/dL [facility] HospitalHematocrit Auto (Bld) [Volume fraction]Ordered By: Fang Zhu on 98-16-0381Cjiwfrkphd (Bld) [Volume fraction]49.1 %42.0-54.0 [facility] HospitalHemoglobin [Mass/volume] in BloodOrdered By: Fang Zhu on 65-61-8758Kcbkquzzum (Bld) [Mass/Vol]17.1 g/dL14.0-18.0[facility] HospitalINR in Platelet poor plasma by Coagulation assayOrdered By: Fang Zhu on 07-18-7123XIC Coag (PPP) [Relative time]1.09 {INR}[facility] HospitalComment on above:DESIRED INR:2.0-3.0 CONDITIONS NOT LISTED BELOW2.5-3.5 FOR PROSTHETIC HEART VALVE REPLACEMENT2.5-3.5 RECURRENT THROMBOSISLaboratory - Chemistry and Chemistry - challengeOrdered By: Fang Zhu on 12-36-1693Letullk [Mass/Vol]4.0 g/dL3.4-5.0[facility] HospitalALP [Catalytic activity/Vol]74 U/F21-742GegmsnofnVan Wert County Hospital ALT [Catalytic activity/Vol]53 U/U55-32RvvicfdeeVan Wert County HospitalAST [Catalytic activity/Vol]28 U/R93-21BqhqvftdjVan Wert County HospitalBilirubin [Mass/Vol]1.5 mg/dLHigh0.2-1.0[facility] HospitalCalcium [Mass/Vol]9.2 mg/dL8.5-10.1FBerger HospitalChloride [Moles/Vol] 100 mmol/C00-566JuzrvuyddVan Wert County HospitalCO2 [Moles/Vol]24.1 mmol/L 21.0-32.0[facility] HospitalCreatinine [Mass/Vol]1.25 mg/dL 0.70-1.30[facility] HospitalGFR/1.73 sq M.predicted MDRD (S/P/Bld) [Vol rate/Area]mL/min/{1.73_m2}>=60 mL/min/1.73m 2FBerger HospitalGlucose [Mass/Vol]229 mg/tSNeyq20-066QxbqizjonVan Wert County Hospital Potassium [Moles/Vol]4.0 mmol/L3.5-5.1FBerger HospitalProtein [Mass/Vol]7.9 g/dL6.4-8.2FTogus VA Medical Centerodium [Moles/Vol]137 mmol/X943-282UbrlipworVan Wert County HospitalUrea nitrogen [Mass/Vol]30.0 mg/dL High7.0-18.0[facility] HospitalUrea nitrogen/Creatinine [Mass ratio]24.0 mg/mgVan Wert County HospitalLaboratory - Hematology and Cell countsOrdered By: Fang Zhu on 18-21-2251Xsqimkgp granulocytes/100 WBC (Bld)0.7 %High0.0-0.5FBerger HospitalLeukocytes [#/volume] corrected for nucleated erythrocytes in Blood by Automated counOrdered By: Fang Zhu on 12-71-8834SOR corrected for nucl RBC Auto (Bld) [#/Vol]15.1 10 3/uLHigh4.0-11.0[facility] HospitalLymphocytes Auto (Bld) [#/Vol] Ordered By: Fang Zhu on 74-93-6584Owsbbxgupac (Bld) [#/Vol]1.7 10 3/uL1.2-3.8 [facility] HospitalLymphocytes/100 WBC Auto (Bld)Ordered By: Fang Zhu on 67-17-0602Jwghinsmluz/100 WBC (Bld)11.0 %Low20.5-60.0[facility] Auto (RBC) [Entitic mass]Ordered By: Fang Zhu on 43-09-1201GJB (RBC) [Entitic mass]34.4 zdJvio13.9-34.0[facility] HospitalMCHC Auto (RBC) [Mass/Vol]Ordered By: Fang Zhu on 48-94-0589PIGP (RBC) [Mass/Vol]34.8 g/dL29.9-35.2FBerger HospitalMCV Auto (RBC) [Entitic vol]Ordered By: Fang Zhu on 51-71-2436QRC (RBC) [Entitic vol]98.8 fL High80.0-94.0[facility] HospitalMonocytes Auto (Bld) [#/Vol] Ordered By: Fang Zhu on 01-82-0620Mrxcxoquu (Bld) [#/Vol]0.5 10 3/uL0.3-0.8 [facility] HospitalMonocytes/100 WBC Auto (Bld)Ordered By: Fang Zhu on 20-28-2089Bodmyticn/100 WBC (Bld)3.4 %1.7-12.0[facility] HospitalNeutrophils Auto (Bld) [#/Vol]Ordered By: Fang Zhu on 09-28-2024 Neutrophils (Bld) [#/Vol]12.8 10 3/uLHigh1.4-6.5FBerger HospitalNeutrophils/100 WBC Auto (Bld)Ordered By: Fang Zhu on 09-28-2024 Neutrophils/100 WBC (Bld)84.4 %High43.0-75.0[facility] HospitalNo Panel InformationOrdered By: Fang Zhu on 48-39-6718Xgirhfwc I High Sensitivity9.5 pg/mL4.0-76.1FBerger HospitalComment on above: CUT-OFF POINTS HAVE BEEN ESTABLISHED BASED ON THE FOURTHUNIVERSAL DEFINITION OF MYOCARDIAL INFARCTION. THE UPPERREFERENCE LIMIT (URL) OF TROPONIN, DEFINED THE 99THPERCENTILE OF cTnI DISTRIBUTION IN A REFERENCE POPULATION,HAS BEEN CONFIRMED THE DECISION THRESHOLD FOR MIDIAGNOSIS.99TH PERCENTILE = 76.2 PG/MLNOTE: HIGH-SENSITIVITY TROPONIN ASSAY IS NOT INTENDED TO BEUSED IN ISOLATION BUT SHOULD BE INTERPRETED IN CONJUNCTIONWITH OTHER DIAGNOSTIC AND CLINICAL INFORMATION.Eosinophils # (Auto)0.0 10 3/uL0.0-0.7FBerger HospitalImmature Granulocyte # (Auto)0.11 10 3/uLHigh0.00-0.03[facility] HospitalPlatelet mean volume Auto (Bld) [Entitic vol]Ordered By: Fang Zhu on 84-97-0508Sxcfilkl mean volume (Bld) [Entitic vol]11.0 fL9.5-13.5 [facility] HospitalPlatelets Auto (Bld) [#/Vol]Ordered By: Fang Zhu on 35-30-5337Yhsieqtfv (Bld) [#/Vol]265 10 3/fH740-795UwiyplrheVan Wert County HospitalProthrombin time (PT)Ordered By: Fang Zhu on 70-91-8653JS Coag (PPP) [Time]11.5 s9.0-11.6FBerger HospitalRBC Auto (Bld) [#/Vol]Ordered By: Fang Zhu on 42-57-5377LTZ (Bld) [#/Vol]4.97 10 6/uL 4.70-6.10[facility] Health Systemerum or plasma albumin/globulin mass ratioOrdered By: Fang Zhu on 23-95-4330Dgcmyib/Globulin [Mass ratio]1.0 {ratio}[facility] Health Systemerum or plasma anion gap determination Ordered By: Fang Zhu on 67-16-3143Tgttv gap [Moles/Vol]16.9 mmol/LFBerger HospitalCNPNon 94-12-7769IZCYEkdsztbut (ADIELUAV) ESME STEVEN ([id number]) 1960 M Date Time Provider Department 09/13/24 [...] chronic gout of multiple sites 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 [Z79*01/05/2023 CHENCHO positive [R76.8] 01/05/2023 Bilateral hand swelling [M79.89] 01/05/2023 Chronic pain of both knees [M25.561, M25.562, G*03/05/2023 Leg weakness, bilateral [R29.898] 06/30/2024 Encounter Status:Closed by DEBRA LUNA on 09/26/24[facility] Health SystemCarbon dioxide, total [Moles/volume] in Serum or PlasmaOrdered By: Antonio Steele on 68-81-9584JK9 [Moles/Vol]Carbon dioxide, total [Moles/volume] in Serum or Zfremw56.0-31.0[facility] HospitalCO2 [Moles/Vol]26.3 mmol/MJpmfeg20.0-31.0[facility] HospitalComment on above:Performed By: #### ARRONTES #### [place] [address] USAChloride [Moles/volume] in Serum or PlasmaOrdered By: Antonio Steele on 44-18-2287Vnvaczjh [Moles/Vol]Chloride [Moles/volume] in Serum or AsgvpfIkc33-859DeautpeutVan Wert County HospitalChloride [Moles/Vol]96 mmol/PZbk28-248TmplvvzklVan Wert County HospitalComment on above:Performed By: #### LYTES #### [place] [address] USAECG 12 lead ECGon 20-62-6916KQR 12 lead ECGTHE [facility] [place] [address] Electrocardiograph Report Signed Patient: Esme Steven MR#: [id number] : 1960 Acct:[id number] Age/Sex: 63 / M ADM Date: 09/09/24 Loc: PO Room: Type: [facility] SD Attending Dr: Antonio Steele MD Ordering Provider: [...] is now present Confirmed by Will Koch ([id number]) on 09/09/2024 11:28:31 AM Referred By: Electronically Signed By: Will Koch Transcribed By: MUS Signed By Will Koch MD 09/09/[address] [place] [address] Physician GroupECG post procedureon 09-09-2024 ECG [facility] Main [place] [id number] Electrocardiograph Report Signed Patient: Esme Steven MR#: [id number] : 1960 Acct:[id number] Age/Sex: 63 / M ADM Date: 09/09/24 Loc: PO Room: Type: [facility] [place] Attending Dr: Antonio Steele MD Ordering Provider: [...] in Lateral leads Confirmed by Ada Woodruff ([id number]) on 09/09/2024 5:08:22 PM Referred By: Electronically Signed By: Ada Woodruff Transcribed By: MUS Signed By Ada Woodruff MD 5 1708[facility] Physician GroupPotassium [Moles/volume] in Serum or PlasmaOrdered By: Antonio Steele on 94-83-2975Yjnbtynua [Moles/Vol]Potassium [Moles/volume] in Serum or Plasma3.5-5.1FBerger Hospital Potassium [Moles/Vol]4.0 mmol/LNormal3.5-5.1FBerger Hospital Comment on above:Performed By: #### DIMITRIOS #### [place] [address] USASerum or plasma anion gap determinationOrdered By: Antonio Steele on 09-80-5604Tpozv gap [Moles/Vol]Serum or plasma anion gap determination6.0-15.0[facility] HospitalAnion gap [Moles/Vol]14.7 mmol/LNormal6.0-15.0[facility] HospitalComment on above:Result Comment: PERFORMED BY: [place] [address] PATHOLOGIST [employer] RYAN ALMARAZ M.D.Performed By: #### LYTES #### [address] [address] USASodium [Moles/volume] in Serum or PlasmaOrdered By: Antonio Steele on 92-21-7390Gbrocs [Moles/Vol]Sodium [Moles/volume] in Serum or TlaelyWyt096-470XoglmlpywHolzer Health Systemodium [Moles/Vol]133 mmol/JAsx184-304VeveecobeVan Wert County HospitalComment on above:Performed By: #### DIMITRIOS #### [facility] [address] [place] [address] USACNPNon 94-75-9355DJFORccwuacqy (RHEULN) ESME STEVEN ([id number]) 1960 M Date Time Provider Department 08/31/24 HELADIO PINEDA During your visit today, we recorded the following information about you: Heladio Pineda MD 08/31/2024 1:10 PM Signed Please call patent To schedule nonfasting labs Active in 07/2024. Ok to complete at [facility] [place]. 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*01/05/2023 assisted current use of 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 [Z79*01/05/2023 CHENCHO positive [R76.8] 01/05/2023 Bilateral hand swelling [M79.89] 01/05/2023 Chronic pain of both knees [M25.561, M25.562, G*03/05/2023 Leg weakness, bilateral [R29.898] 06/30/2024 Encounter Status:Closed by ILEANA GEORGE on 09/02/24NoThe [facility] [address] 50-33-8877Gkasao fibrillation with controlled rate with old inferior [facility] Work Phone: [facility] Work Phone: alanine aminotransferase [Enzymatic activity/volume] in Serum or PlasmaOrdered By: Lydia Connelly on 89-57-6987DVE [Catalytic activity/Vol]Alanine aminotransferase [Enzymatic activity/volume] in Serum or Plasma[address]ALT [Catalytic activity/Vol]86 U/LH58 Martin StreetComment on above:Performed By: #### CMP, MG, CBC ####[facility] [address] [place] [address] USAAlbumin [Mass/volume] in Serum or Plasma by Bromocresol green (BCG) dye binding methoOrdered By: Lydia Connelly on 77-39-2850Ncuxmpi BCG dye [Mass/Vol] Albumin [Mass/volume] in Serum or Plasma by Bromocresol green (BCG) dye binding metho3.5-5.7FBerger HospitalAlbumin BCG dye [Mass/Vol]3.5 g/dL 3.5-5.7FBerger HospitalAlkaline phosphatase [Enzymatic activity/volume] in Serum or PlasmaOrdered By: Lydia Connelly on 17-86-2473ZWI [Catalytic activity/Vol]Alkaline phosphatase [Enzymatic activity/volume] in Serum or Zkclsw56-340CbalxiapsVan Wert County HospitalALP [Catalytic activity/Vol]73 U/UDwcbjb62-871HkokadgniVan Wert County HospitalComment on above:Performed By: #### CMP, MG, CBC ####[place] [address] [place] [address] USAAspartate aminotransferase [Enzymatic activity/volume] in Serum or PlasmaOrdered By: Lydia Connelly on 61-30-3889TKT [Catalytic activity/Vol]Aspartate aminotransferase [Enzymatic activity/volume] in Serum or Tbzkce88-80RifvpynoxVan Wert County HospitalAST [Catalytic activity/Vol]31 U/MYixmrm39-57ObhniokatVan Wert County HospitalComment on above: Performed By: #### CMP, MG, CBC ####[place] [address] [place] [address] USABasophils Auto (Bld) [#/Vol]Ordered By: Lydia Connelly on 19-67-2023Ndptzcyqb (Bld) [#/Vol]Automated basophil count0.0-0.2FBerger HospitalBasophils [#/volume] in Blood by Automated countOrdered By: Lydia Connelly on 56-21-6099Rzegrgnbq (Bld) [#/Vol]0.1 10*3/uLNormal0.0-0.2 [facility] HospitalComment on above:Result Comment: PERFORMED BY: [facility] [address] [place] [address] PATHOLOGIST [employer] OSCAR HAY M.D.Performed By: #### CMP, MG, CBC ####[place] [address] [place] [address] USABasophils/100 WBC Auto (Bld)Ordered By: Lydia Connelly on 65-79-3025Wzcendugx/100 WBC (Bld)Automated basophil %.[facility] HospitalBasophils/100 leukocytes in Blood by Automated countOrdered By: Lydia Connelly on 67-03-9495Frdzutpdb/100 WBC (Bld) 0.8 %Normal.[facility] HospitalComment on above:Performed By: #### CMP, MG, CBC ####[facility] [address] [place] [address] USABilirubin.total [Mass/volume] in Serum or PlasmaOrdered By: Lydia Connelly on 22-15-4578Dnqghedaq [Mass/Vol]Bilirubin.total [Mass/volume] in Serum or PlasmaHigh0.3-1.0[facility] HospitalComment on above:Samples from patients who have taken Naproxen have shown spurious elevation in Total Bilirubin levels. A metabolite of Naproxen, O-desmethylnaproxen, has been shown to interfere with the Jendrassik-Grof method for measuring Total Bilirubin. Bilirubin [Mass/Vol]1.4 mg/dLHigh0.3-1.0[facility] HospitalComment on above:Samples from patients who have taken Naproxen have shown spurious elevation in Total Bilirubin levels. A metabolite of Naproxen, O- desmethylnaproxen, has been shown to interfere with the Jendrassik-Grof method for measuring Total Bilirubin.Result Comment: Samples from patients who have taken Naproxen have shown spurious elevation in Total Bilirubin levels. A metabolite of Naproxen, O-desmethylnaproxen, has been shown to interfere with the Jendrassik-Grof method for measuring Total Bilirubin.Performed By: #### CMP, MG, CBC ####[facility] [address] [place] [address] USACalcium [Mass/volume] in Serum or PlasmaOrdered By: Lydia Connelly on 56-04-1673Qfchdhv [Mass/Vol]Calcium [Mass/volume] in Serum or Plasma8.6-10.3FBerger HospitalCalcium [Mass/Vol]8.9 mg/dLNormal8.6-10.3FBerger HospitalComment on above:Performed By: #### CMP, MG, CBC ####[facility] [address] [place] [address] USACarbon dioxide, total [Moles/volume] in Serum or PlasmaOrdered By: Lydia Connelly on 20-24-0267SK4 [Moles/Vol]Carbon dioxide, total [Moles/volume] in Serum or Srnhmi65.0-31.0[facility] HospitalCO2 [Moles/Vol]25.4 mmol/NAvfhat48.0-31.0[facility] Comment on above:Performed By: #### CMP, MG, CBC ####[place] [id number] USAChloride [Moles/volume] in Serum or PlasmaOrdered By: Lydia Connelly on 11-12-6136Jgjgioya [Moles/Vol]Chloride [Moles/volume] in Serum or Jfpvyl96-639ZgksdtgceVan Wert County HospitalChloride [Moles/Vol]102 mmol/KWivamv62-534RzurrnywyVan Wert County HospitalComment on above:Performed By: #### CMP, MG, CBC ####[place] [address] USAComplete Blood Count Auto Diffon 08-13-2024 Mean Corpuscular HGB Conc33.9 g/aQYhejze62.5-35.6[facility] Comment on above:Performed By: #### CMP, MG, CBC ####[place] [address] USANRBC%0.1 /100{WBC}Normal0-0.5[facility] Physician GroupComment on above:Performed By: #### CMP, MG, CBC ####[place] [id number] [facility] Comprehensive Metabolic Panelon 29-27-1194Zgkoxsq [Mass/Vol]3.5 g/dLNormal 3.5-5.7[facility] Physician GroupComment on above:Performed By: #### CMP, MG, CBC ####[place] [id number] [place] Creatinine Clr Calc Wxdetevd750.44NormalThe [facility] Physician GroupComment on above:Performed By: #### CMP, MG, CBC ####[place] [id number] USAGFR/1.73 sq M.predicted MDRD (S/P/Bld) [Vol rate/Area]mL/min/{1.73_m2}NormalThe [facility] Physician GroupComment on above: Performed By: #### CMP, MG, CBC ####[place] [address] USACreatinine [Mass/volume] in Serum or PlasmaOrdered By: Lydia Connelly on 15-39-6766Oxrfiqrabs [Mass/Vol]Creatinine [Mass/volume] in Serum or Plasma0.70-1.30[facility] HospitalCreatinine [Mass/Vol] 0.76 mg/dLNormal0.70-1.30[facility] HospitalComment on above: Performed By: #### CMP, MG, CBC ####[place] [address] USAEosinophils Auto (Bld) [#/Vol]Ordered By: Lydia Connelly on 51-90-0190Zzcwadbdhev (Bld) [#/Vol]Automated eosinophil count0.0-0.45 [facility] HospitalEosinophils [#/volume] in Blood by Automated countOrdered By: Lydia Connelly on 87-88-3158Ftkrmwawolc (Bld) [#/Vol]0.1 10*3/uL Normal0.0-0.45[facility] HospitalComment on above:Performed By: #### CMP, MG, CBC ####[place] [address] USAEosinophils/100 WBC Auto (Bld)Ordered By: Lydia Connelly on 08-13-2024 Eosinophils/100 WBC (Bld)Automated eosinophil %.[facility] HospitalEosinophils/100 leukocytes in Blood by Automated countOrdered By: Lydia Connelly on 94-54-0567Vavtvnsgvuv/100 WBC (Bld)1.1 %Normal.[facility] HospitalComment on above:Performed By: #### CMP, MG, CBC ####[place] [address] USAErythrocyte distribution width Auto (RBC) [Ratio]Ordered By: Lydia Connelly on 08-13-2024 Erythrocyte distribution width (RBC) [Ratio]Erythrocyte distribution width [Ratio] by Automated count12.0-14.8[facility] HospitalErythrocyte distribution width [Ratio] by Automated countOrdered By: Lydia Connelly on 95-20-2720Guygexvmbcq distribution width (RBC) [Ratio]13.8 %Uaplbd20.0-14.8 [facility] HospitalComment on above:Performed By: #### CMP, MG, CBC ####[facility] [address] Erythrocytes [#/volume] in Blood by Automated countOrdered By: Lydia Connelly on 73-40-7437RWF (Bld) [#/Vol]4.79 10*6/uLNormal3.90-5.60[facility] HospitalComment on above:Performed By: #### CMP, MG, CBC ####[facility] [address] [place] [address] USAGlobulin Calc (S) [Mass/Vol] Ordered By: Lydia Connelly on 31-30-8167Cwzpzvjh (S) [Mass/Vol]Serum globulin measurement by calculation (mass/volume)[facility] HospitalGlucose [Mass/volume] in Serum or PlasmaOrdered By: Lydia Connelly on 20-26-2131Oycntxs [Mass/Vol]Glucose [Mass/volume] in Serum or SzthzsSfih79-196Ivmypaqbv81 Marshall StreetComment on above:ADA recommended reference rangeRandom Glucose Reference Range is dependent on time and content of last meal. Glucose of more than 200 mg/dL in a nonstressed, ambulatory subject supports the diagnosisof Diabetes Mellitus.Glucose [Mass/Vol]148 mg/rRZjja42-229VflljaletVan Wert County HospitalComment on above:ADA recommended reference rangeRandom Glucose Reference Range is dependent on time and content of last meal. Glucose of more than 200 mg/dL in a nonstressed, ambulatory subject supports the diagnosisof Diabetes Mellitus.Result Comment: Random Glucose Reference Range is dependent on time and content of last meal. Glucose of more than 200 mg/dL in a nonstressed, ambulatory subject supports the diagnosis of Diabetes Mellitus. ADA recommended reference rangePerformed By: #### CMP, MG, CBC ####[facility] [address] [place] [address] USAHematocrit Auto (Bld) [Volume fraction]Ordered By: Lydia Connelly on 92-57-7957Hldfmbotyu (Bld) [Volume fraction]Hematocrit [Volume Fraction] of Blood by Automated iusofXnol31.8-50.0 [facility] HospitalHematocrit [Volume Fraction] of Blood by Automated countOrdered By: Lydia Connelly on 09-37-5760Tmndatcxxy (Bld) [Volume fraction]50.5 %High38.8-50.0[facility] HospitalComment on above: Performed By: #### CMP, MG, CBC ####[facility] [address] [place] [id number] USAHemoglobin [Mass/volume] in BloodOrdered By: Lydia Connelly on 80-01-0898Fpxozmvxkp (Bld) [Mass/Vol]Hemoglobin [Mass/volume] in Blood High13.0-17.0[facility] HospitalHemoglobin (Bld) [Mass/Vol]17.1 g/iOTnad21.0-17.0[facility] HospitalComment on above:Performed By: #### CMP, MG, CBC ####[facility] [address] [place], [place] [address] USALeukocytes [#/volume] corrected for nucleated erythrocytes in Blood by Automated counOrdered By: Lydia Connelly on 78-14-3000LZS corrected for nucl RBC Auto (Bld) [#/Vol]Leukocytes [#/volume] corrected for nucleated erythrocytes in Blood by Automated coun4.1-10.5FBerger HospitalWBC corrected for nucl RBC Auto (Bld) [#/Vol]9.6 10*3/uL4.1-10.5FBerger HospitalLeukocytes [#/volume] in Blood by Automated countOrdered By: Lydia Connelly on 64-87-3939FEM (Bld) [#/Vol]9.6 10*3/uLNormal4.1-10.5FBerger HospitalComment on above:Performed By: #### CMP, MG, CBC ####[facility] [address] [place] [address] Lymphocytes Auto (Bld) [#/Vol]Ordered By: Lydia Connelly on 57-91-5730Qsdkxuigsad (Bld) [#/Vol]Lymphocytes [#/volume] in Blood by Automated count1.00-4.8[facility] HospitalLymphocytes [#/volume] in Blood by Automated count Ordered By: Lydia Connelly on 11-97-9430Emlmhqvytjq (Bld) [#/Vol]1.4 10*3/uLNormal 1.00-4.8[facility] HospitalComment on above:Performed By: #### CMP, MG, CBC ####[address] Harvey StreetLymphocytes/100 WBC Auto (Bld)Ordered By: Lydia Connelly on 08-13-2024 Lymphocytes/100 WBC (Bld)Lymphocytes/100 leukocytes in Blood by Automated count. [facility] HospitalLymphocytes/100 leukocytes in Blood by Automated countOrdered By: Lydia Connelly on 36-31-6484Oxzcfzsohti/100 WBC (Bld) 15.1 %Normal.[facility] HospitalComment on above:Performed By: #### CMP, MG, CBC ####[place] [id number] [facility] Auto (RBC) [Entitic mass]Ordered By: Lydia Connelly on 08-13-2024 MCH (RBC) [Entitic mass]MCH [Entitic mass] by Automated aupcpOlji02.5-35.2 [facility]H [Entitic mass] by Automated countOrdered By: Lydia Connelly on 09-62-9514QAR (RBC) [Entitic mass]35.8 dlNvjw71.5-35.2 [facility] HospitalComment on above:Performed By: #### CMP, MG, CBC ####[place] [id number] [facility] MCHC Auto (RBC) [Mass/Vol]Ordered By: Lydia Connelly on 90-62-2369NSDM (RBC) [Mass/Vol]MCHC [Mass/volume] by Automated count32.5-35.6FBerger HospitalMCHC (RBC) [Mass/Vol]33.9 g/dL32.5-35.6FBerger HospitalMCV Auto (RBC) [Entitic vol]Ordered By: Lydia Connelly on 48-15-1801WEJ (RBC) [Entitic vol]MCV [Entitic volume] by Automated kinowIbds38.5-101Van [facility] HospitalMCV [Entitic volume] by Automated countOrdered By: Lydia Connelly on 64-26-6033WUD (RBC) [Entitic vol]105.[address] [place], [place] [address]Comment on above:Performed By: #### CMP, MG, CBC ####[place] [address] Magnesium [Mass/volume] in Serum or PlasmaOrdered By: Lydia Connelly on 08-13-2024 Magnesium [Mass/Vol]Magnesium [Mass/volume] in Serum or PlasmaLow1.9-2.7 [facility] HospitalMagnesium [Mass/Vol]1.6 mg/dLLow1.9-2.7 [facility] HospitalComment on above:Result Comment: PERFORMED BY: [facility] [address] [place] [id number] PATHOLOGIST [employer] OSCAR HAY M.D.Performed By: #### CMP, MG, CBC ####[place] [address] [place] [id number] USAMonocytes Auto (Bld) [#/Vol]Ordered By: Lydia Connelly on 37-57-7387Coydmfccg (Bld) [#/Vol]Automated blood monocyte count0.0-0.8[facility] HospitalMonocytes [#/volume] in Blood by Automated countOrdered By: Lydia Connelly on 48-14-8149Fhzxnrqtt (Bld) [#/Vol]0.7 10*3/uLNormal0.0-0.8[facility] HospitalComment on above:Performed By: #### CMP, MG, CBC ####[facility] [address] [place] [address] USAMonocytes/100 WBC Auto (Bld)Ordered By: Lydia Connelly on 36-34-6866Vyeezcetb/100 WBC (Bld)Automated monocyte %.[facility] HospitalMonocytes/100 leukocytes in Blood by Automated count Ordered By: Lydia Connelly on 03-08-9451Betjbpecc/100 WBC (Bld)7.6 %Normal. [facility] County HospitalComment on above:Performed By: #### CMP, MG, CBC ####[facility] [address] [place] [address] USANM kacie perf SPECT rest stron 95-90-6365EG kacie perf SPECT rest [facility] [address] [place] [address] Nuclear Medicine Report Signed Patient: Esme Steven MR#: [id number] : 1960 Acct:[id number] Age/Sex: 63 / M ADM Date: 08/11/24 Loc: Room: [address] [place] [address] Type: ADM INOo Attending Dr: Lydia Connelly MD Copies to: Lala Arce MD, [facility] MD Lydia Guajardo MD Ordering Provider: Lala Arce MD, [facility] Date of Service: 08/12/24 NM/NM kacie perf [...] Woodruff M.D. 08/13/2024 1:02 PM Dictation Location: [facility] [address] Transcribed By: GWEN 08/13/24 1302 Dictated By: Ada Woodruff MD 08/13/24 1258 Signed By: 08/13/24 1302[facility] Physician GroupNeutrophils Auto (Bld) [#/Vol] Ordered By: Lydia Connelly on 25-85-3615Wwmtvnytrpq (Bld) [#/Vol]Neutrophils [#/volume] in Blood by Automated count1.8-7.7FBerger Hospital Neutrophils [#/volume] in Blood by Automated countOrdered By: Lydia Connelly on 87-73-7811Niihavhkkey (Bld) [#/Vol]7.2 10*3/uLNormal1.8-7.7FBerger HospitalComment on above:Performed By: #### CMP, MG, CBC ####[facility] [address] [place] [address] USANeutrophils/100 WBC Auto (Bld)Ordered By: Lydia Connelly on 09-18-0699Ppzxxfdddsz/100 WBC (Bld) Automated neutrophil %.[facility] HospitalNeutrophils/100 leukocytes in Blood by Automated countOrdered By: Lydia Connelly on 08-13-2024 Neutrophils/100 WBC (Bld)75.4 %Normal.[facility] HospitalComment on above:Performed By: #### CMP, MG, CBC ####[facility] [address] [place] [address] USANo Panel InformationOrdered By: Lydia Connelly on 26-52-3114Dbbajvejr GFR (CKD-EPI)> 60.0 mL/MinVan Wert County HospitalPharmacy Creatinine Clearance (Exjj813.44[facility] Nucleated erythrocytes [Presence] in Blood by Automated countOrdered By: Lydia Connelly on 42-49-8997Naxbxupqx RBC Auto Ql (Bld)Nucleated erythrocytes [Presence] in Blood by Automated count0-0.5FBerger HospitalNucleated RBC Auto Ql (Bld)0.1 /100{WBC}0-0.5FBerger HospitalPlatelet mean volume Auto (Bld) [Entitic vol]Ordered By: Lydia Connelly on 47-26-5425Uydxxojq mean volume (Bld) [Entitic vol]Platelet mean volume [Entitic volume] in Blood by Automated count6.6-10.1FBerger HospitalPlatelet mean volume [Entitic volume] in Blood by Automated countOrdered By: Lydia Connelly on 25-62-9485Ldnmwntq mean volume (Bld) [Entitic vol]9.1 fLNormal6.6-10.1FBerger HospitalComment on above:Performed By: #### CMP, MG, CBC ####[facility] [address] Platelets Auto (Bld) [#/Vol]Ordered By: Lydia Connelly on 10-74-7757Igixojbtd (Bld) [#/Vol]Platelets [#/volume] in Blood by Automated ijdrh700-182XbefajoqrVan Wert County HospitalPlatelets [#/volume] in Blood by Automated countOrdered By: Lydia Connelly on 16-12-6291Qhmllpyim (Bld) [#/Vol]160 10*3/pTNrdnvc903-655 [facility] HospitalComment on above:Performed By: #### CMP, MG, CBC ####[facility] [address] Potassium [Moles/volume] in Serum or PlasmaOrdered By: Lydia Connelly on [id number] [Moles/Vol]Potassium [Moles/volume] in Serum or Plasma 3.5-5.1FBerger HospitalComment on above:Hemolysis is present at a level that could interfere with the result.Contact lab if redraw is required Potassium [Moles/Vol]3.9 mmol/LNormal3.5-5.1FBerger Hospital Comment on above:Hemolysis is present at a level that could interfere with the result.Contact lab if redraw is requiredResult Comment: Hemolysis is present at a level that could interfere with the result. Contact lab if redraw is requiredPerformed By: #### CMP, MG, CBC ####[address] [address] USAProtein [Mass/volume] in Serum or PlasmaOrdered By: Lydia Connelly on [id number] [Mass/Vol] Protein [Mass/volume] in Serum or PlasmaLow6.4-8.9[facility] HospitalProtein [Mass/Vol]6.1 g/dLLow6.4-8.9[facility] Comment on above:Performed By: #### CMP, MG, CBC ####[address] [address] USARBC Auto (Bld) [#/Vol]Ordered By: Lydia Connelly on 68-37-4288MHA (Bld) [#/Vol]Erythrocytes [#/volume] in Blood by Automated count3.90-5.60[facility]zer Health Systemerum globulin measurement by calculation (mass/volume)Ordered By: Lydia Connelly on 08-13-2024 Globulin (S) [Mass/Vol]2.6 g/dLNormalVan Wert County HospitalComment on above:Performed By: #### CMP, MG, CBC ####[address] [address] USASerum or plasma albumin/globulin mass ratio Ordered By: Lydia Connelly on 76-43-3452Vcymnqq/Globulin [Mass ratio]Serum or plasma albumin/globulin mass ratioVan Wert [facility] Hospital Albumin/Globulin [Mass ratio]1.3 {ratio}NormalVan Wert County Hospital Comment on above:Performed By: #### CMP, MG, CBC ####[address] [address] USASerum or plasma anion gap determinationOrdered By: Lydia Connelly on 89-02-4536Vvbsi gap [Moles/Vol]Serum or plasma anion gap determination6.0-15.0[facility] HospitalAnion gap [Moles/Vol]11.5 mmol/LNormal6.0-15.0[facility] HospitalComment on above:Performed By: #### CMP, MG, CBC ####[address] [place] [address] USASodium [Moles/volume] in Serum or Plasma Ordered By: Lydia Connelly on 21-74-7732Autmbp [Moles/Vol]Sodium [Moles/volume] in Serum or BrnqreKpw334-941ZehytysevHolzer Health Systemodium [Moles/Vol]135 mmol/NZxz254-886KryipinhnVan Wert County HospitalComment on above:Performed By: #### CMP, MG, CBC ####[address] [place] [address] USAUrea nitrogen [Mass/volume] in Serum or PlasmaOrdered By: Lydia Connelly on 07-44-1719Wljn nitrogen [Mass/Vol]Urea nitrogen [Mass/volume] in Serum or Plasma7-[facility] HospitalUrea nitrogen [Mass/Vol]19 mg/dL Normal7-25[facility] HospitalComment on above:Performed By: #### CMP, MG, CBC ####[address] [place] [address] USAWBC Auto (Bld) [#/Vol]Ordered By: Lydia Connelly on 91-52-3029IPD (Bld) [#/Vol]Leukocytes [#/volume] in Blood by Automated count4.1-10.5FBerger HospitalA1C with Estimated Average Gluon 12-94-4321Vznnblz [Mass/Vol]174 mg/dLNoPending sale to [facility] Physician GroupComment on above:Result Comment: PERFORMED BY: [facility] [address] [place] [address] PATHOLOGIST [employer] OSCAR HAY M.D.Performed By: #### LIPID, MG, CMP, A1C WTH eA, CBC ####[address] [place] [address] USABlood estimated average glucose determination by estimation from glycated hemoglobin Ordered By: Lydia Connelly on 53-88-5521Vklhgep glucose Estimated from glycated hemoglobin (Bld) [Mass/Vol]Glucose mean value [Mass/volume] in Blood Estimated from glycated hemoglobinVan Wert County HospitalAverage glucose Estimated from glycated hemoglobin (Bld) [Mass/Vol]174 mg/dLVan Wert County HospitalCholesterol [Mass/volume] in Serum or PlasmaOrdered By: Lydia Connelly on 41-38-2360Vpbnwpwxwqs [Mass/Vol]Cholesterol [Mass/volume] in Serum or Rerjan756-143HjxghrqhsVan Wert County HospitalComment on above:Chol less than 200 mg/dl low riskChol 201-239 mg/dl borderline riskChol 240 mg/dl and greater high riskCholesterol [Mass/Vol]167 mg/pBDbwayf795-089NadwdbtjzVan Wert County HospitalComment on above:Chol less than 200 mg/dl low riskChol 201-239 mg/dl borderline riskChol 240 mg/dl and greater high riskResult Comment: Chol less than 200 mg/dl low risk Chol 201-239 mg/dl borderline risk Chol 240 mg/dl and greater high riskPerformed By: #### LIPID, MG, CMP, A1C WTH eA, CBC ####[facility] [place] [address] USACholesterol in HDL [Mass/volume] in Serum or PlasmaOrdered By: Lydia Connelly on 04-69-6501Hkyrynlamva in HDL [Mass/Vol]Serum or plasma high density lipoprotein (HDL) cholesterol bpvyujswamy29-62Dtnpcnxsz[address] Comment on above:HDL CHOL ATP-III CLASSIFICATION Cardiovascular RiskHDL > or equal to 60 mg/dL LOWHDL < 40 mg/dL HIGHCholesterol in HDL [Mass/Vol]45 mg/dL Upbuyw78-68Tszediirb[address] [place], [place] [address]Comment on above:HDL CHOL ATP-III CLASSIFICATION Cardiovascular RiskHDL > or equal to 60 mg/dL LOWHDL < 40 mg/dL HIGHResult Comment: HDL CHOL ATP-III CLASSIFICATION Cardiovascular Risk HDL > or equal to 60 mg/dL LOW HDL < 40 mg/dL HIGHPerformed By: #### LIPID, MG, CMP, A1C WTH eA, CBC ####[facility] [address] [place] [address] [place] Cholesterol in LDL Calc [Mass/Vol]Ordered By: Lydia Connelly on 08-12-2024 Cholesterol in LDL [Mass/Vol]Cholesterol in LDL [Mass/volume] in Serum or Plasma by calculationVan Wert County HospitalComment on above:LDL ATP III CLASSIFICATIONLDL less than 100 mg/dL OptimalLDL 100-129 mg/dL Near or above yadtfccJUW929-783 mg/dL Borderline highLDL 160-189 mg/dL HighLDL greater than 189 mg/dL Very highCholesterol in LDL [Mass/Vol]86 mg/dL0Van [facility] County HospitalComment on above:LDL ATP III CLASSIFICATIONLDL less than 100 mg/dL OptimalLDL 100-129 mg/dL Near or above plqokjrSLB367-545 mg/dL Borderline highLDL 160-189 mg/dL HighLDL greater than 189 mg/dL Very highCholesterol in VLDL Calc [Mass/Vol]Ordered By: Lydia Connelly on 05-92-6058Gpbciabmgyp in VLDL [Mass/Vol]Cholesterol in VLDL [Mass/volume] in Serum or Plasma by calculation [facility] HospitalCholesterol in VLDL [Mass/Vol]35 mg/dLVan Wert County HospitalComplete Blood Count Auto Diffon 53-32-8292Pxhrukjed (Bld) [#/Vol]0.1 10*3/uLNormal0.0-0.2The [facility] Physician GroupComment on above:Result Comment: PERFORMED BY: [facility] [address] [place] [address] PATHOLOGIST [employer] OSCAR HAY M.D.Performed By: #### LIPID, MG, CMP, A1C [facility] eA, CBC ####[address] [place] [address] [place] Basophils/100 WBC (Bld)0.8 %Normal.The [facility] Physician GroupComment on above:Performed By: #### LIPID, MG, CMP, A1C [facility] eA, CBC ####[facility] [place] [address] USAEosinophils (Bld) [#/Vol]0.1 10*3/uLNormal0.0-0.45The [facility] Physician GroupComment on above:Performed By: #### LIPID, MG, CMP, A1C WTH eA, CBC ####[address]Eosinophils/100 WBC (Bld)0.7 %Normal.The [facility] Physician GroupComment on above:Performed By: #### LIPID, MG, CMP, A1C WTH eA, CBC ####[place] [address] USAErythrocyte distribution width (RBC) [Ratio]13.7 %Znnpuv61.0-14.8The [facility] Physician GroupComment on above:Performed By: #### LIPID, MG, CMP, A1C WTH eA, CBC ####[place] [address] USAHematocrit (Bld) [Volume fraction]50.3 %High38.8-50.0The [facility] Physician GroupComment on above:Performed By: #### LIPID, MG, CMP, A1C WTH eA, CBC ####[address] Hemoglobin (Bld) [Mass/Vol]17.3 g/uQYyxu31.0-17.0The [facility] Comment on above:Performed By: #### LIPID, MG, CMP, A1C WTH eA, CBC ####[place] [address] [place] Lymphocytes (Bld) [#/Vol]1.5 10*3/uLNormal1.00-4.8The [facility] Comment on above:Performed By: #### LIPID, MG, CMP, A1C WTH eA, CBC ####[place] [address] [place] Lymphocytes/100 WBC (Bld)14.1 %Normal.The [facility] Physician GroupComment on above:Performed By: #### LIPID, MG, CMP, A1C WTH eA, CBC ####[place] [address] USAMCH (RBC) [Entitic mass]35.7 spRxzn72.5-35.2The [facility] Physician GroupComment on above:Performed By: #### LIPID, MG, CMP, A1C WTH eA, CBC ####[address] (RBC) [Entitic vol]103.6 zSAyjf80.5-101The [facility] Physician GroupComment on above:Performed By: #### LIPID, MG, CMP, A1C WTH eA, CBC ####[place] [address] USAMean Corpuscular HGB Conc34.5 g/sDWvtqeq33.5-35.6The [facility] Physician GroupComment on above:Performed By: #### LIPID, MG, CMP, A1C WTH eA, CBC ####[place] [address] [place] Monocytes (Bld) [#/Vol]0.5 10*3/uLNormal0.0-0.8The [facility] Comment on above:Performed By: #### LIPID, MG, CMP, A1C WTH eA, CBC ####[place] [address] [place] Monocytes/100 WBC (Bld)5.0 %Normal.The [facility] Physician GroupComment on above:Performed By: #### LIPID, MG, CMP, A1C WTH eA, CBC ####[place] [address] USANeutrophils (Bld) [#/Vol]8.2 10*3/uLHigh1.8-7.7The [facility] Physician GroupComment on above:Performed By: #### LIPID, MG, CMP, A1C WTH eA, CBC ####[place] [address] USANeutrophils/100 WBC (Bld)79.4 %Normal.The [facility] Physician GroupComment on above:Performed By: #### LIPID, MG, CMP, A1C WTH eA, CBC ####[address] [place] [address] USANRBC%0.1 /100{WBC}Normal0-0.5The [facility] Physician GroupComment on above:Performed By: #### LIPID, MG, CMP, A1C WTH eA, CBC ####[address] [address] USAPlatelet mean volume (Bld) [Entitic vol]9.1 fLNormal6.6-10.1The [facility] Physician GroupComment on above: Performed By: #### LIPID, MG, CMP, A1C WTH eA, CBC ####[place] [address] USAPlatelets (Bld) [#/Vol]169 10*3/uEOmywsj221-500Kch [facility] Physician GroupComment on above:Performed By: #### LIPID, MG, CMP, A1C WTH eA, CBC ####[place] [address] USARBC (Bld) [#/Vol]4.86 10*6/uLNormal3.90-5.60 The [facility] Physician GroupComment on above:Performed By: #### LIPID, MG, CMP, A1C WTH eA, CBC ####[place] [address] USAWBC (Bld) [#/Vol]10.3 10*3/uLNormal4.1-10.5The [facility] Physician GroupComment on above:Performed By: #### LIPID, MG, CMP, A1C WTH eA, CBC ####[id number] [facility] Comprehensive Metabolic Panelon 10-18-2894Fputevu [Mass/Vol]3.9 g/dLNormal 3.5-5.7The [facility] Physician GroupComment on above:Performed By: #### LIPID, MG, CMP, A1C WTH eA, CBC ####[id number] USAAlbumin/Globulin [Mass ratio]1.3 {ratio}NormalThe [facility] Physician GroupComment on above:Performed By: #### LIPID, MG, CMP, A1C WTH eA, CBC ####[address] [address] USAALP [Catalytic activity/Vol]84 U/WJyyugr51-858Psk [facility] Physician GroupComment on above:Performed By: #### LIPID, MG, CMP, A1C WTH eA, CBC ####[address] [address] USAALT [Catalytic activity/Vol]112 U/LHigh7-52The [facility] Physician GroupComment on above:Performed By: #### LIPID, MG, CMP, A1C WTH eA, CBC ####[address] [address] USAAnion gap [Moles/Vol]12.1 mmol/LNormal6.0-15.0The [facility] Physician GroupComment on above:Performed By: #### LIPID, MG, CMP, A1C WTH eA, CBC ####[address] [address] USAAST [Catalytic activity/Vol]22 U/AEfnbdz86-19 The [facility] Physician GroupComment on above:Performed By: #### LIPID, MG, CMP, A1C WTH eA, CBC ####[address] [address] USABilirubin [Mass/Vol]1.6 mg/dLHigh0.3-1.0The [facility] Comment on above:Result Comment: Samples from patients who have taken Naproxen have shown spurious elevation in Total Bilirubin levels. A metabolite of Naproxen, O-desmethylnaproxen, has been shown to interfere with the Jayro-Henrik method for measuring Total Bilirubin.Performed By: #### LIPID, MG, CMP, A1C WTH eA, CBC ####[address] [address] USACalcium [Mass/Vol] 9.6 mg/dLNormal8.6-10.3The [facility] Physician GroupComment on above:Performed By: #### LIPID, MG, CMP, A1C WTH eA, CBC ####[address] [place] [address] USAChloride [Moles/Vol]99 mmol/RAawvuc61-897Jem [facility] Physician GroupComment on above:Performed By: #### LIPID, MG, CMP, A1C WTH eA, CBC ####[address] [address] USACO2 [Moles/Vol]27.7 mmol/YPwpwhc69.0-31.0The [facility] Comment on above:Performed By: #### LIPID, MG, CMP, A1C WTH eA, CBC ####[address] [place] Creatinine [Mass/Vol]0.80 mg/dLNormal0.70-1.30The [facility] Comment on above:Performed By: #### LIPID, MG, CMP, A1C WTH eA, CBC ####[address] [place] Creatinine Clr Calc Zkpruadz02.08NoPending sale to [facility] Physician GroupComment on above:Performed By: #### LIPID, MG, CMP, A1C WTH eA, CBC ####[address] USAGFR/1.73 sq M.predicted MDRD (S/P/Bld) [Vol rate/Area]mL/min/{1.73_m2}NormalThe [facility] Comment on above:Performed By: #### LIPID, MG, CMP, A1C WTH eA, CBC ####[address] [place] Globulin (S) [Mass/Vol]2.9 g/dLNoPending sale to [facility] Physician GroupComment on above:Performed By: #### LIPID, MG, CMP, A1C WTH eA, CBC ####[id number] USAGlucose [Mass/Vol]153 mg/dL Quby71-129Gkb [facility] Physician GroupComment on above:Result Comment: Random Glucose Reference Range is dependent on time and content of last meal. Glucose of more than 200 mg/dL in a nonstressed, ambulatory subject supports the diagnosis of Diabetes Mellitus. ADA recommended reference rangePerformed By: #### LIPID, MG, CMP, A1C WTH eA, CBC ####[address] Potassium [Moles/Vol]3.8 mmol/LNormal3.5-5.1The [facility] Physician GroupComment on above:Performed By: #### LIPID, MG, CMP, A1C WTH eA, CBC ####[place] [address] USAProtein [Mass/Vol]6.8 g/dLNormal6.4-8.9The [facility] Physician GroupComment on above:Performed By: #### LIPID, MG, CMP, A1C WTH eA, CBC ####[place] [address] USASodium [Moles/Vol]135 mmol/NJxr894-510Ucl [facility] Physician GroupComment on above:Performed By: #### LIPID, MG, CMP, A1C WTH eA, CBC ####[place] [address] USAUrea nitrogen [Mass/Vol]13 mg/dLNormal7-25The [facility] Comment on above:Performed By: #### LIPID, MG, CMP, A1C WTH eA, CBC ####[address] Hemoglobin A1c/Hemoglobin.total in BloodOrdered By: Lydia Connelly on 08-12-2024 HbA1c (Bld) [Mass fraction]Hemoglobin A1c percentageHigh4.3-5.6FBerger HospitalComment on above:Increased risk for diabetes: 5.7 - 6.4diabetes: >6.4glycemic control for adults with diabetes: <7.0HbA1c (Bld) [Mass fraction]7.7 %High4.3-5.6FBerger HospitalComment on above:Increased risk for diabetes: 5.7 - 6.4diabetes: >6.4glycemic control for adults with diabetes: <7.0Result Comment: Increased risk for diabetes: 5.7 - 6.4 diabetes: >6.4 glycemic control for adults with diabetes: <7.0Performed By: #### LIPID, MG, CMP, A1C WTH eA, CBC ####[facility] [place] [address] USALipid Panelon 83-30-9590KSV Cholesterol,Crkeqczqbq65 mg/dLNormal0-100[facility] Physician GroupComment on above:Result Comment: LDL ATP III CLASSIFICATION LDL less than 100 mg/dL Optimal LDL 100-129 mg/dL Near or above optimal LDL 130-159 mg/dL Borderline high LDL 160-189 mg/dL High LDL greater than 189 mg/dL Very highPerformed By: #### LIPID, MG, CMP, A1C WTH eA, CBC ####[address] [place] [id number] USATriglyceride w/Truesb051 mg/dLHigh0-149The [facility] Physician GroupComment on above:Result Comment: TRIG ATP III CLASSIFICATION TRIG less than 150 mg/dL Normal TRIG 150-199 mg/dL Borderline high TRIG 200-500 mg/dL High TRIG greater than 500 mg/dL Very high Standard traceable to the Center for Disease Conrtrol and Prevention (CDC) test method.Performed By: #### LIPID, MG, CMP, A1C WTH eA, CBC ####[address] [place] [id number] USAVLDL NDHWKKWOZPM18 mg/dLNormalThe [facility] Physician GroupComment on above:Performed By: #### LIPID, MG, CMP, A1C WTH eA, CBC ####[address] [address] USAMagnesiumon 32-37-8247Cwemltrqf [Mass/Vol]1.5 mg/dLLow1.9-2.7The [facility] Physician GroupComment on above:Performed By: #### LIPID, MG, CMP, A1C WTH eA, CBC ####[id number] USASerum or plasma total cholesterol/high density lipoprotein (HDL) cholesterol mass ratOrdered By: Lydia Connelly on 08-12-2024 Cholesterol.total/Cholesterol in HDL [Mass ratio]Serum or plasma total cholesterol/high density lipoprotein (HDL) cholesterol mass rat<5.0[facility] HospitalCholesterol.total/Cholesterol in HDL [Mass ratio]3.7 {ratio}Normal<5.0[facility] HospitalComment on above:Result Comment: PERFORMED BY: [facility] [address] [facility] [place] [address] PATHOLOGIST [employer] OSCAR HAY M.D.Performed By: #### LIPID, MG, CMP, A1C WTH eA, CBC ####[facility] [address] [place] [address] [facility] Triglyceride [Mass/volume] in Serum or PlasmaOrdered By: Lydia Connelly on 55-56-5889Ljqttsegjtmv [Mass/Vol]Triglyceride [Mass/volume] in Serum or Plasma High0-149[facility] HospitalComment on above:TRIG ATP III CLASSIFICATIONTRIG less than 150 mg/dL NormalTRIG 150-199 mg/dL Borderline highTRIG 200-500 mg/dL High TRIG greater than 500 mg/dL Very highStandard traceable to the Center for Disease Conrtrol and Prevention (CDC) test method. Triglyceride [Mass/Vol]179 mg/dLHigh0-149[facility] Comment on above:TRIG ATP III CLASSIFICATIONTRIG less than 150 mg/dL NormalTRIG 150-199 mg/dL Borderline highTRIG 200-500 mg/dL High TRIG greater than 500 mg/dL Very highStandard traceable to the Center for Disease Conrtrol and Prevention (CDC) test method.Troponin I High Sensitivityon 38-05-9969Nvmzzrlc I High Thkznwhblos55Hnmsnd8-02Hzb [facility] Physician GroupComment on above:Result Comment: The Troponin units of report have been changed to meet the Chest Pain Accreditation requirement, element EC5.M1l2. Troponin units are changed from pg/ml to ng/L. Also, the decimal is removed and results are in whole numbers. PERFORMED BY: [facility] [address] [facility] [place] [address] PATHOLOGIST [employer] OSCAR HAY M.D.Performed By: #### HS TROP ####[facility] [address] [place] [id number] USATroponin I.cardiac [Mass/volume] in Serum or Plasma by Detection limit <= 0.01 ng/Ordered By: Lydia Connelly on 94-68-5449Qknyzlfi I.cardiac DL <= 0.01 ng/mL [Mass/Vol]Troponin I.cardiac [Mass/volume] in Serum or Plasma by Detection limit <= 0.01 ng/0-20 [facility] HospitalComment on above:The Troponin units of report have been changed to meet the Chest Pain Accreditation requirement, element EC5.M1l2. Troponin units are changed from pg/ml to ng/L. Also, the decimal is removed and results are in whole numbers.Troponin I.cardiac [Mass/volume] in Serum or Plasma by Detection limit <= 0.01 ng/mLOrdered By: Lydia Connelly on 07-95-7687Ksdiazjr I.cardiac DL <= 0.01 ng/mL [Mass/Vol]17 ng/L0-[facility] HospitalComment on above:The Troponin units of report have been changed to meet the Chest Pain Accreditation requirement, element EC5.M1l2. Troponin units are changed from pg/ml to ng/L. Also, the decimal is removed and results are in whole numbers.US venous duplex LE BIon 55-70-8643RX venous duplex [facility] [address] [place] [id number] Ultrasound Report Signed Patient: Esme Steven MR#: [id number] : 1960 Acct:[id number] Age/Sex: 63 / M ADM Date: 08/11/24 Loc: Room: [address] [place] [address] Type: ADM INOo Attending Dr: Lydia Connelly [...] Hannah M.D. 08/12/2024 3:12 PM Dictation Location: [place] [address] Tech: Serena Carol Transcribed By: GWEN 08/12/241511 Dictated By: Matt Hannah MD 08/12/241511 Signed By: 08/12/241511[facility] Physician [facility] HospitalBNP ser/plasOrdered By: Winnie Grande on 10-38-0362Uylnteijift peptide B (Bld) [Mass/Vol]514.0 pg/mLHigh5-100 [facility] HospitalComment on above:Result Comment: PERFORMED BY: [place] [address] PATHOLOGIST [employer] OSCAR HAY M.D.Performed By: #### LYTES #### [place] [address] USABasic Metabolic Panelon 34-91-3052Zyzmh gap [Moles/Vol] 11.8 mmol/LNormal6.0-15.0The [facility]ations Behavioral HealthComment on above:Performed By: #### LYTES #### [place] [address] USACalcium [Mass/Vol]9.1 mg/dLNormal8.6-10.3The [facility] Physician [facility] HospitalComment on above:Performed By: #### LYTES #### [place] [address] USAChloride [Moles/Vol]100 mmol/TCoihye41-179Kbg [facility] Physician [facility] HospitalComment on above:Performed By: #### LYTES #### [place] [address] USACO2 [Moles/Vol]26.2 mmol/OKbezdj88.0-31.0The [facility] Physician GroupComment on above:Performed By: #### LYTES #### [facility] [address] [place] [address] USACreatinine [Mass/Vol]0.74 mg/dLNormal0.70-1.30The [facility] Physician GroupComment on above:Performed By: #### LYTES #### [facility] [address] [place] [address] USACreatinine Clr Calc Homkkxoi479.04NormalThe [facility] Physician GroupComment on above:Result Comment: PERFORMED BY: [place] [address] PATHOLOGIST [employer] OSCAR HAY M.D.Performed By: #### LYTES #### [place] [address] USAGFR/1.73 sq M.predicted MDRD (S/P/Bld) [Vol rate/Area] mL/min/{1.73_m2}NormalThe [facility] Physician GroupComment on above:Performed By: #### LYTES #### [place] [address] USAGlucose [Mass/Vol]164 mg/dGMmjv60-540Ooa [facility] Physician [facility] HospitalComment on above:Result Comment: Random Glucose Reference Range is dependent on time and content of last meal. Glucose of more than 200 mg/dL in a nonstressed, ambulatory subject supports the diagnosis of Diabetes Mellitus. ADA recommended reference rangePerformed By: #### LYTES #### [place] [address] USAPotassium [Moles/Vol]4.0 mmol/LNormal3.5-5.1The [facility] Physician GroupComment on above:Result Comment: Hemolysis is present at a level that could interfere with the result. Contact lab if redraw is requiredPerformed By: #### LYTES #### [place] [address] USASodium [Moles/Vol]134 mmol/TPws394-010Uct [facility] Physician GroupComment on above:Performed By: #### LYTES #### [facility] [address] [place] [address] USAUrea nitrogen [Mass/Vol]12 mg/dLNormal7-25The [facility] Physician GroupComment on above:Performed By: #### LYTES #### [facility] [address] [place] [address] USABasophils Auto (Bld) [#/Vol]Ordered By: Winnie Grande on 02-48-0500Jvqqpabex (Bld) [#/Vol]Automated basophil count0.0-0.2FBerger HospitalBasophils/100 WBC Auto (Bld)Ordered By: Winnie Grande on 16-90-3060Vfyzlvwgz/100 WBC (Bld)Automated basophil %.[facility] HospitalCalcium [Mass/volume] in Serum or PlasmaOrdered By: Winnie Grande on 17-00-9249Mtknlta [Mass/Vol]Calcium [Mass/volume] in Serum or Plasma8.6-10.3 [facility] HospitalCarbon dioxide, total [Moles/volume] in Serum or PlasmaOrdered By: Winnie Grande on 72-34-8796CF0 [Moles/Vol]Carbon dioxide, total [Moles/volume] in Serum or Nkwgoo25.0-31.0[facility] HospitalChloride [Moles/volume] in Serum or PlasmaOrdered By: Winnie Grande on 38-40-1412Uqxkhtpg [Moles/Vol]Chloride [Moles/volume] in Serum or Anejyw26-359 [facility] HospitalComplete Blood Count Auto Diffon 08-11-2024 Basophils (Bld) [#/Vol]0.0 10*3/uLNormal0.0-0.2The [facility] Comment on above:Result Comment: PERFORMED BY: [place] [address] PATHOLOGIST [employer] OSCAR HAY M.D.Performed By: #### LYTES #### [facility] [address] [place] [address] USABasophils/100 WBC (Bld)0.1 %Normal.The [facility] Physician GroupComment on above:Performed By: #### LYTES #### [facility] [address] [place] [address] USAEosinophils (Bld) [#/Vol]0.0 10*3/uLNormal0.0-0.45The [facility] Physician GroupComment on above:Performed By: #### LYTES #### [place] [address] USAEosinophils/100 WBC (Bld)0.3 %Normal.The [facility] Physician GroupComment on above:Performed By: #### LYTES #### [place] [address] USAErythrocyte distribution width (RBC) [Ratio]13.8 %Normal 12.0-14.8The [facility] Physician GroupComment on above:Performed By: #### LYTES #### [place] [address] USAHematocrit (Bld) [Volume fraction]45.5 %Armkjn48.8-50.0The [facility] Physician GroupComment on above:Performed By: #### LYTES #### [place] [address] USAHemoglobin (Bld) [Mass/Vol]15.5 g/dKMavysz74.0-17.0The [facility] Physician GroupComment on above:Performed By: #### LYTES #### [place] [address] USALymphocytes (Bld) [#/Vol]0.9 10*3/uLLow1.00-4.8The [facility] Physician GroupComment on above:Performed By: #### LYTES #### [place] [address] USALymphocytes/100 WBC (Bld)6.3 %Normal.The [facility] Physician GroupComment on above:Performed By: #### LYTES #### [place] [address] USAMCH (RBC) [Entitic mass]35.4 gtHlko38.5-35.2The [facility] Physician GroupComment on above:Performed By: #### LYTES #### [facility] [address] [place] [address] USAMCV (RBC) [Entitic vol]104.0 lCQdtk61.5-101The [facility] Physician GroupComment on above:Performed By: #### LYTES #### [facility] [address] [place] [address] USAMean Corpuscular HGB Conc34.1 g/rLKuivfm92.5-35.6The [facility] Physician GroupComment on above:Performed By: #### LYTES #### [place] [address] USAMonocytes (Bld) [#/Vol]0.8 10*3/uLNormal0.0-0.8The [facility] Physician GroupComment on above:Performed By: #### LYTES #### [place] [address] USAMonocytes/100 WBC (Bld)19.81 %Normal0.00-20.00The [facility] Physician GroupComment on above:Performed By: #### LYTES #### [place] [address] USAMonocytes/100 WBC (Bld)5.5 %Normal.The [facility] Physician GroupComment on above:Performed By: #### LYTES #### [facility] [address] [place] [address] USANeutrophils (Bld) [#/Vol]12.0 10*3/uLHigh1.8-7.7The [facility] Physician GroupComment on above:Performed By: #### LYTES #### [place] [address] USANeutrophils/100 WBC (Bld)87.8 %Normal.The [facility] Physician GroupComment on above:Performed By: #### LYTES #### [place] [address] USANRBC%0.1 /100{WBC}Normal0-0.5The [facility] Comment on above:Performed By: #### LYTES #### [facility] [address] [place] [address] USAPlatelet mean volume (Bld) [Entitic vol]8.9 fLNormal 6.6-10.1The [facility] Physician GroupComment on above:Performed By: #### LYTES #### [facility] [address] [place] [address] USAPlatelets (Bld) [#/Vol]146 10*3/hXMlv529-497Sgm [facility] Physician GroupComment on above:Performed By: #### LYTES #### [facility] [address] [place] [address] USARBC (Bld) [#/Vol]4.38 10*6/uLNormal3.90-5.60The [facility] Physician GroupComment on above:Performed By: #### LYTES #### [facility] [address] [place] [address] USAWBC (Bld) [#/Vol]13.6 10*3/uLHigh4.1-10.5The [facility] Physician GroupComment on above:Performed By: #### LYTES #### [facility] [address] [place] [address] USACreatine kinase [Enzymatic activity/volume] in Serum or PlasmaOrdered By: Winnie Grande on 17-83-1645YQ [Catalytic activity/Vol]Creatine kinase [Enzymatic activity/volume] in Serum or HqcdnpWio26-328OejwznoauVan Wert County HospitalCK [Catalytic activity/Vol]15 U/ZJcb37-707TlsjdrphiVan Wert County HospitalComment on above:Performed By: #### LYTES #### [facility] [address] [place] [address] USACreatinine [Mass/volume] in Serum or PlasmaOrdered By: Winnie Grande on 08-32-8062Htvvouxnph [Mass/Vol]Creatinine [Mass/volume] in Serum or Plasma0.70-1.30Van Wert County HospitalECG 12 lead ECGon 08-11-2024 ECG 12 lead [facility] Main [place] [id number] Electrocardiograph Report Signed Patient: Esme Steven MR#: [id number] : 1960 Acct:[id number] Age/Sex: 63 / M ADM Date: 08/11/24 Loc: Room: [address] [place] [address] Type: ADM INOo Attending Dr: Lydia Connelly [...] By: MUS Signed By Winnie Grande DO [address] [place] [address] Physician GroupECG 12 lead [facility] Main [place] [id number] Electrocardiograph Report Signed Patient: Esme Steven MR#: [id number] : 1960 Acct:[id number] Age/Sex: 63 / M ADM Date: 08/11/24 Loc: Room: [address] [place] [address] Type: ADM INOo Attending Dr: Lydia Connelly [...] By: MUS Signed By Winnie Grande DO 1947[facility] Physician GroupECH echo transthoracicon 62-18-8886MEH echo transthoracicTHE SURGICAL H[facility]PITAL AT [facility] Main [place] [address] [place] [address] Echocardiogram Signed Patient: Esme Steven MR#: [id number] : 1960 Acct:[id number] Age/Sex: 63 / M ADM Date: 08/11/24 Loc: Room: 7G9087-4 Type: ADM INOo Attending Dr: Lydia Connelly MD Ordering Provider: Lydia Connelly MD Date of Service: 08/11/2408/31/1330 ECH/ECH echo transthoracic: Chest Pain Copies to: MD Lydia Panda MD Height: 61 in Weight: 233 lb Performed By: Narinder Lezama RDCS, T BSA: 2.0 m2 BP: 137/98 mmHg HR: 98 Reason For Study: Chest Pain History: PCI, CABG, AFib, Watchman - 07/01, HTN, HLD, FER, PA, MV disorder, CAD Interpretation Summary The LV [...] max P.2 mmHg RAP systole: 3.0 mmHg Transcribed By: SCV Performed At: 08/11/24 1546 Signed By: Will Koch MD 08/11/[address] [place] [address] Physician GroupEosinophils Auto (Bld) [#/Vol]Ordered By: Winnie Grande on 13-73-4063Qlkgkbsfoam (Bld) [#/Vol]Automated eosinophil count0.0-0.45Fire[facility] Regional Medical CenterEosinophils/100 WBC Auto (Bld)Ordered By: Winnie Grande on 19-59-1553Fsebglrehgv/100 WBC (Bld)Automated eosinophil %.[facility] County HospitalErythrocyte distribution width Auto (RBC) [Ratio]Ordered By: Winnie Grande on 45-24-2663Byuctnxnbhe distribution width (RBC) [Ratio] Erythrocyte distribution width [Ratio] by Automated count12.0-14.8Van [facility] County HospitalGlucose [Mass/volume] in Serum or PlasmaOrdered By: Winnie Grande on 85-09-2765Odlyptn [Mass/Vol]Glucose [Mass/volume] in Serum or BdtjglDddf47-177LihvhkbuuVan Wert County HospitalComment on above:ADA recommended reference rangeRandom Glucose Reference Range is dependent on time and content of last meal. Glucose of more than 200 mg/dL in a nonstressed, ambulatory subject supports the diagnosisof Diabetes Mellitus.Hematocrit Auto (Bld) [Volume fraction]Ordered By: Winnie Grande on 78-85-2296Eqsrjbdctz (Bld) [Volume fraction]Hematocrit [Volume Fraction] of Blood by Automated count 38.8-50.0[facility] HospitalHemoglobin [Mass/volume] in Blood Ordered By: Winnie Grande on 37-01-2551Eyuyuaibbd (Bld) [Mass/Vol]Hemoglobin [Mass/volume] in Blood13.0-17.0[facility] County HospitalINR in Platelet poor plasma by Coagulation assayOrdered By: Winnie Grande on 74-29-4430QEH Coag (PPP) [Relative time]INR in Platelet poor plasma by Coagulation assayVan Wert County HospitalComment on above:INR Therapeutic Range A) Pre- and Peroperative OAT started two weeks before surgery. NOT HIP SURGERY: 1.5 - 2.5 HIP SURGERY: 2 - 3B) Primary and secondary prevention of venous THROMBOSIS: 2 - 3C) Active venous thrombosis, pulmonary embolismand prevention of recurrent venous thrombosis: 2 - 3D) Prevention of arterial thromboembolismincluding patients with mechanical heart valves: 3 - 4.5INR Coag (PPP) [Relative time]1.1 {INR}NormalVan Wert County HospitalComment on above:INR Therapeutic Range A) Pre- and Peroperative OAT started two weeks before surgery. NOT HIP SURGERY: 1.5 - 2.5 HIP SURGERY: 2 - 3B) Primary and secondary prevention of venous THROMBOSIS: 2 - 3C) Active venous thrombosis, pulmonary embolismand prevention of recurrent venous thrombosis: 2 - 3D) Prevention of arterial thromboembolismincluding patients with mechanical heart valves: 3 - 4.5Result Comment: INR Therapeutic Range A) Pre- and [...] heart valves: 3 - 4.5 PERFORMED BY: [place] [address] PATHOLOGIST [employer] OSCAR HAY M.D.Performed By: #### LYTES #### [place] [address] USALeukocytes [#/volume] corrected for nucleated erythrocytes in Blood by Automated counOrdered By: Winnie Grande on 30-67-6374ACA corrected for nucl RBC Auto (Bld) [#/Vol]Leukocytes [#/volume] corrected for nucleated erythrocytes in Blood by Automated counHigh4.1-10.5FBerger HospitalLymphocytes Auto (Bld) [#/Vol]Ordered By: Winnie Grande on 08-11-2024 Lymphocytes (Bld) [#/Vol]Lymphocytes [#/volume] in Blood by Automated countLow 1.00-4.8Van [facility] County HospitalLymphocytes/100 WBC Auto (Bld)Ordered By: Winnie Grande on 17-69-5071Jlebqhbobqr/100 WBC (Bld)Lymphocytes/100 leukocytes in Blood by Automated count.[facility] Auto (RBC) [Entitic mass]Ordered By: Winnie Grande on 47-80-7946NET (RBC) [Entitic mass]MCH [Entitic mass] by Automated byypjJdit70.5-35.2FKing's Daughters Medical Center [place] Auto (RBC) [Mass/Vol]Ordered By: Winnie Grande on 08-11-2024 MCHC (RBC) [Mass/Vol]MCHC [Mass/volume] by Automated count32.5-35.6FBerger HospitalMCV Auto (RBC) [Entitic vol]Ordered By: Winnie Grande on 34-01-1539SXZ (RBC) [Entitic vol]MCV [Entitic volume] by Automated countHigh 83.5-101Van [facility] County HospitalMonocyte distribution width [Entitic volume] in Blood by AutomatedOrdered By: Winnie Grande on 78-25-9968Qxredyhj distribution width Auto (Bld) [Entitic vol]Monocyte distribution width [Entitic volume] in Blood by Automated0.00-20.00[facility] County HospitalMonocyte distribution width Auto (Bld) [Entitic vol]19.81 %0.00-20.00[facility] County HospitalMonocytes Auto (Bld) [#/Vol]Ordered By: Winnie Grande on 08-11-2024 Monocytes (Bld) [#/Vol]Automated blood monocyte count0.0-0.8[facility] County HospitalMonocytes/100 WBC Auto (Bld)Ordered By: Winnie Grande on 08-11-2024 Monocytes/100 WBC (Bld)Automated monocyte %.[facility] Natriuretic peptide B [Mass/Vol]Ordered By: Winnie Grande on 08-11-2024 Natriuretic peptide B (Bld) [Mass/Vol]BNP ser/plasHigh5-100Van [facility] County HospitalNeutrophils Auto (Bld) [#/Vol]Ordered By: Winnie Grande on 79-35-8318Txqgbawujup (Bld) [#/Vol]Neutrophils [#/volume] in Blood by Automated countHigh1.8-7.7FBerger HospitalNeutrophils/100 WBC Auto (Bld) Ordered By: Winnie Grande on 03-73-2196Dipsdkzjhsy/100 WBC (Bld)Automated neutrophil %.[facility] County HospitalNo Panel InformationOrdered By: Winnie Grande on 33-46-5749Hbrjhbiyk GFR (CKD-EPI)> 60.0 mL/MinVan Wert County HospitalPharmacy Creatinine Clearance (Rmbu981.04Van [facility] County HospitalNucleated erythrocytes [Presence] in Blood by Automated count Ordered By: Winnie Grande on 80-83-1754Aymaexuls RBC Auto Ql (Bld)Nucleated erythrocytes [Presence] in Blood by Automated count0-0.5FBerger HospitalPlatelet mean volume Auto (Bld) [Entitic vol]Ordered By: Winnie Grande on 67-00-9203Vqsbezif mean volume (Bld) [Entitic vol]Platelet mean volume [Entitic volume] in Blood by Automated count6.6-10.1FBerger HospitalPlatelets Auto (Bld) [#/Vol]Ordered By: Winnie Grande on 08-11-2024 Platelets (Bld) [#/Vol]Platelets [#/volume] in Blood by Automated countLow 150-450Van [facility] County HospitalPotassium [Moles/volume] in Serum or PlasmaOrdered By: Winnie Grande on 59-66-1001Ujsjeddgm [Moles/Vol]Potassium [Moles/volume] in Serum or Plasma3.5-5.1FBerger HospitalComment on above:Hemolysis is present at a level that could interfere with the result.Contact lab if redraw is requiredProthrombin time (PT)Ordered By: Winnie Grande on 81-04-0760UO Coag (PPP) [Time]Prothrombin time (PT)9.0-12.9Van [facility] County HospitalComment on above:A hematocrit value greater than 55% may lead to inaccurate results in coagulation testing. Patientshaving hematocrit values >55% require a special collection tube for coagulation studies. Please c ontact the laboratory at [phone] for redraw instructions.PT Coag (PPP) [Time]12.5 sNormal9.0-12.9Van [facility] County HospitalComment on above:A hematocrit value greater than 55% may lead to inaccurate results in coagulation testing. Patientshaving hematocrit values >55% require a special collection tube for coagulation studies. Please contact the laboratory at [phone] for redraw instructions.Result Comment: A hematocrit value greater than 55% may lead to inaccurate results in coagulation testing. Patients having hematocrit values >55% require a special collection tube for coagulation studies. Please contact the laboratory at [phone] for redraw instructions.Performed By: #### LYTES #### [facility] [address] [place] [address] USARBC Auto (Bld) [#/Vol]Ordered By: Winnie Grande on 15-40-8382GTU (Bld) [#/Vol]Erythrocytes [#/volume] in Blood by Automated count 3.90-5.60Holzer Health Systemerum or plasma anion gap determinationOrdered By: Winnie Grande on 13-85-5149Gtsmb gap [Moles/Vol]Serum or plasma anion gap determination6.0-15.0Holzer Health Systemodium [Moles/volume] in Serum or PlasmaOrdered By: Winnie Grande on 37-78-9621Cgsawv [Moles/Vol]Sodium [Moles/volume] in Serum or RzaizlSqn199-549OcsogfuraVan Wert County HospitalThyrotropin [Units/volume] in Serum or PlasmaOrdered By: Lydia Connelly on 44-80-9313DOR QnThyrotropin [Units/volume] in Serum or Plasma0.45-5.33 [facility] County HospitalTS Qn0.50 m[IU]/LNormal0.45-5.33Van [facility] County HospitalComment on above:Result Comment: PERFORMED BY: [place] [id number] PATHOLOGIST [employer] OSCAR HAY M.D.Performed By: #### TSH3 ####[facility] [address] [place] [address] USATroponin I High Sensitivityon 83-02-6846Offrlocx I High Bsemfmftgnl40Ytmodv3-28Tct [facility] Comment on above:Result Comment: The Troponin units of report have been changed to meet the Chest Pain Accreditation requirement, element EC5.M1l2. Troponin units are changed from pg/ml to ng/L. Also, the decimal is removed and results are in whole numbers. PERFORMED BY: [place] [id number] PATHOLOGIST [employer] OSCAR HAY M.D.Performed By: #### HS TROP ####[address] [address] USATroponin I High Jsbutpyikvh90 Normal0-20The [facility] Physician GroupComment on above:Result Comment: The Troponin units of report have been changed to meet the Chest Pain Accreditation requirement, element EC5.M1l2. Troponin units are changed from pg/ml to ng/L. Also, the decimal is removed and results are in whole numbers. PERFORMED BY: [place] [address] PATHOLOGIST [employer] OSCAR HAY M.D.Performed By: #### HS TROP ####[address] [address] [facility] CENTERTroponin I High Wjwsmkxzrmt51 Normal0-20ThPortneuf Medical Center Physician GroupComment on above:Result Comment: The Troponin units of report have been changed to meet the Chest Pain Accreditation requirement, element EC5.M1l2. Troponin units are changed from pg/ml to ng/L. Also, the decimal is removed and results are in whole numbers. PERFORMED BY: [facility] [address] [place] [address] PATHOLOGIST [employer] OSCAR HAY M.D.Performed By: #### CK, BNP, HS TROP, PT, CBC, BMP ####[address] [address] [facility] Troponin I.cardiac [Mass/volume] in Serum or Plasma by Detection limit <= 0.01 ng/Ordered By: Lydia Connelly on 43-86-8253Cbgphjvz I.cardiac DL <= 0.01 ng/mL [Mass/Vol]Troponin I.cardiac [Mass/volume] in Serum or Plasma by Detection limit <= 0.01 ng/0-20[facility] County HospitalComment on above:The Troponin units of report have been changed to meet the Chest Pain Accreditation requirement, element EC5.M1l2. Troponin units are changed from pg/ml to ng/L. Also, the decimal is removed and results are in whole numbers.Urea nitrogen [Mass/volume] in Serum or PlasmaOrdered By: Winnie Grande on 12-71-9472Wqug nitrogen [Mass/Vol]Urea nitrogen [Mass/volume] in Serum or Plasma10-31Van [facility] County HospitalWBC Auto (Bld) [#/Vol]Ordered By: Winnie Grande on 09-48-5669KDA (Bld) [#/Vol]Leukocytes [#/volume] in Blood by Automated countHigh 4.1-10.5FBerger HospitalX-ray reportOrdered By: Alex Castro on 62-88-7472Joixi reportTHE SURGICAL HOSPITAL [place] [address] XRay Report Signed Patient: Esme Steven MR#: [id number] : 1960 Acct:[id number] Age/Sex: 63 / M ADM Date: 5 Loc: ER Room: Type: [facility] ER Attending Dr: Copies to: Winnie Grande DO~ Ordering Provider: Winnie Grande DO Date of Service: 08/11/24 XR/XR chest 2V*: Chest Pain Chest 2 views CLINICAL HISTORY: Chest pain shortness of breath A. fib for 3 days COMPARISON: Chest 08/30/2023 FINDINGS: Post CABG changes. No lung consolidation pneumothorax pleural effusion or free air. Cardiomegaly isunchanged. XR/XR chest 2V* IMPRESSION: NO ACUTE CARDIOPULMONARY ABNORMALITY. Impression dictated by: Alex Castro Jr., D.OBarbara 08/11/2024 11:24 AM Dictation Location: [place] [address] Transcribed By: [facility] 08/11/24 1124 Dictated By: Alex Castro Jr, DO 08/11/24 1123 Signed By: 08/11/24 1124 [facility] County HospitalXR chest 2V*on 30-84-3891WH chest 2V*[place] [id number] XRay Report Signed Patient: Esme Steven MR#: [id number] : 1960 Acct:[id number] Age/Sex: 63 / M ADM Date: 08/11/24 Loc: ER Room: Type: [facility] ER Attending Dr: Copies to: Winnie [...] Jr., D.O. 08/11/2024 11:24 AM Dictation Location: [facility]- Transcribed By: [facility] 08/11/24 1124 Dictated By: Alex Castro Jr, DO 08/11/24 1123 Signed By: 08/11/24 1124[facility] Physician GroupX-ray reportOrdered By: Gisell Camilo on 40-70-7210Youzu reportTHE SURGICAL HOSPITAL AT S[facility]WO[facility] [address] [place] [address] XRay Report Signed Patient: Esme Steven MR#: [id number] : 1960 Acct:[id number] Age/Sex: 63 / M ADM Date: Loc: [facility] Room: Type: [facility] CLI Attending Dr: Sarai Mendez II, [...] lumbar spine There are no significant soft tissueabnormalities. XR/XR hip LT min 2V(w/wo pelvis)* IMPRESSION: STABLE HIP PROSTHESES. NO ACUTE BONY INJURY. Impression dictated by: Gisell Camilo M.D. 08/06/2024 5:00 PM Dictation Location: RADIO-PC-23 Transcribed By: GWEN 08/06/241699 Dictated By: Gisell Camilo MD 08/06/24 1651 Signed By: 08/06/241699 [facility] Work Phone: XR hip LT min 2V(w/wo pelvis)*on 95-48-8882JG hip LT min 2V(w/wo pelvis)*[facility] [address] [place] [address] XRay Report Signed Patient: Esme Steven MR#: [id number] : 1960 Acct:[id number] Age/Sex: 63 / M ADM Date: 08/06/24 Loc: [facility] Room: Type: [facility] Attending Dr: Sarai Mendez II, MD Copies [...] By: Gisell Camilo MD 08/06/241658 Signed By: 08/06/241699[facility] Physician GroupX-ray reportOrdered By: Ap Paul on 69-26-4245Xzvlo reportTHE SURGICAL HOSPITAL AT SOU[facility] [address] [place] [address] XRay Report Signed Patient: Esme Steven MR#: [id number] : 1960 Acct:[id number] Age/Sex: 63 / M ADM Date: 5 Loc: [facility] Room: Type: REG CLI Attending [...] metacarpal joint and scaphoid multi angular joint. Aczz-uj-tsomksks degenerative changes elsewhere. No fractures or dislocation.. Mild intercarpal degenerative changes. XR/XR hand LT min 3V* IMPRESSION: NO ACUTE BONY INJURY. Impression dictated by: Ap Paul M.D. 08/04/2024 7:49 PM Dictation Location: [place] [address] Transcribed By: [facility] 08/04/241948 Dictated By: Ap Paul MD 08/04/241946 Signed By: 08/04/241948 [facility] Work Phone: XR hand LT min 3V*on 51-81-8981UY hand LT min 3V* [facility] [address] [place] [address] XRay Report Signed Patient: Esme Steven MR#: [id number] : 1960 Acct:[id number] Age/Sex: 63 / M ADM Date: 08/04/24 [...] metacarpal joint and scaphoid multi angular joint. Zpoz-ly-zrfukbjo degenerative changes elsewhere. No fractures or dislocation.. Mild intercarpal degenerative changes. XR/XR hand LT min 3V* IMPRESSION: NO ACUTE BONY INJURY. Impression dictated by: Ap Paul M.D. 08/04/2024 7:49 PM Dictation Location: [place] [address] Transcribed By: GWEN 08/04/241948 Dictated By: Ap Paul MD 08/04/241946 Signed By: 08/04/241948[facility] Physician GroupX-ray reportOrdered By: Gisell Camilo on 36-87-3921Jxobz reportTHE SURGICAL HOSPITAL AT SOUTHWOODS Main [place] [address] [place] [address] XRay Report Signed Patient: Esme Steven MR#: [id number] : 1960 Acct:[id number] Age/Sex: 63 / M ADM Date: 5 Loc: ER Room: Type: [facility] ER Attending Dr: Copies to: Cosmo [...] views of the left hip were obtained. Bilateralhip prostheses are again visualized. The hardware appears [...] AM Dictation Location: RADIO-PC-02 Transcribed By: GWEN 08/01/24 1152 Dictated By: Gisell Camilo MD 08/01/24 1150 Signed By: 08/01/24 1152 [facility] Work Phone: XR hip LT min 2V(w/wo pelvis)*on 86-72-6541OS hip LT min 2V(w/wo pelvis)*[facility] [place] [address] [place] [address] XRay Report Signed Patient: Esme Steven MR#: [id number] : 1960 Acct:[id number] Age/Sex: 63 / M ADM Date: 08/01/24 Loc: ER Room: Type: [facility] ER Attending Dr: Copies to: Cosmo [...] AM Dictation Location: RADIO-PC-02 Transcribed By: GWEN 08/01/24 1152 Dictated By: Gisell Camilo MD 08/01/24 1150 Signed By: 08/01/24 1152[facility] Physician GroupCNPNon 91-45-4310RESUPjwlvsgjf (RADHA) ESME STEVEN ([id number]) 1960 M Date Time Provider Department 07/07/24 HELADIO PINEDA During your visit today, we recorded the following information about you: Heladio Pineda MD 08/18/2024 7:35 PM Addendum Please Call patient if MyChart note not read to review results/released to My Chart if tests completed at [facility]: Mildly high wbc, glucose, and one [...] Prescription(s) as above. Please process accordingly. MD Miriam Jeffery Margaret, MD 08/06/2024 5:21 PM Signed [...] METABOLIC PANEL [SQCMP] Or (more content not included)...Normal [facility]25([place])D3 [facility] [address]-jqgapmvzbbgsix D3 [Mass/Vol]19.2 ng/mLLow31.0-80.0[facility] on above:Order Comment: Specimen Type: BLOOD SPECIMEN [facility] Facility: [facility] Address: [address] [place] [address]Keefwp Comment: Classification of 25 [place] Vitamin D status: Deficiency/Insufficiency: < or = 30 ng/ml. Sufficiency/Optimal Levels: 31-80 ng/mL Toxicity: > 100 ng/mL. Test performed by chemiluminescent immunoassay.Performed By: #### 1989-3 #### [facility] CLIA [id number] [address] [place], [place] [address]K [place] [id number] [facility]MONTGOMERYCB panel Auto (Bld)on 86-06-2100Vfjbedjxmvv distribution width (RBC) [Ratio]13.3 %11.5 - 15.0 % [facility] HealthHematocrit (Bld) [Volume fraction]49.9 %39.0 - 51.0 %Wilson HealthHemoglobin (Bld) [Mass/Vol]16.9 g/dL13.0 - 17.0 g/dLWilson Health Interpretation and review of laboratory resultsAbnormalCEast Ohio Regional HospitalH (RBC) [Entitic mass]35.2 npBiqe13.0 - 34.0 pgCEast [place] Regional HospitalHC (RBC) [Mass/Vol] 33.9 g/dL30.5 - 36.0 g/dLBlanchard Valley Health System Blanchard Valley HospitalV (RBC) [Entitic vol]104 rPIdty09.0 - 100.0 fLCtrihealth bethesda north hospital ClinicNucleated RBC (Bld) [#/Vol]NINFClevelfirsthealth ClinicPlatelet mean volume (Bld) [Entitic vol]10.6 fL9.0 - 12.7 fLCtrihealth bethesda north hospital ClinicPlatelets (Bld) [#/Vol]239 10*3/uLWilson HealthRBC (Bld) [#/Vol]4.8 10*6/uL4.20 - 6.00 m/[facility]ding County HospitalWBC (Bld) [#/Vol]12.61 10*3/uLHighSouthview Medical CenterErythrocyte distribution width (RBC) [Ratio]13.3 %Vqkmxf44.5-15.0[facility] on above:Order Comment: Specimen Type: BLOOD SPECIMEN Ordering Facility: [facility] Address: [address] [place], [place] [address]Performed By: #### 83072-2, 4537-7 #### [facility] CLIA [id number] [address] [place] [address] OF AMERICAHematocrit (Bld) [Volume fraction]49.9 %Mqkaeu93.0-51.0[facility] on above:Order Comment: Specimen Type: BLOOD SPECIMEN Ordering Facility: [facility] Address: [address] [place], [place] [address]Performed By: #### 58958-4, 4537-7 #### [facility] CLIA [id number] [address] [place] [address] OF AMERICAHemoglobin (Bld) [Mass/Vol] 16.9 g/hUYfpxtn22.0-17.0[facility] on above:Order Comment: Specimen Type: BLOOD SPECIMEN Ordering Facility: [facility] Address: [address] [place], [place] [address]Performed By: #### 13463-0, 4537-7 #### [facility] CLIA [id number] [address] [place], [place] [address]MCH (RBC) [Entitic mass]35.2 vwWcxs61.0-34.0[facility] on above:Order Comment: Specimen Type: BLOOD SPECIMEN Ordering Facility: [facility] Address: [address] [place], [place] [address]Performed By: #### 14359-6, 4537-7 #### [facility] CLIA [id number] [address] [place] [address] [facility] OF AMERICAMCHC (RBC) [Mass/Vol]33.9 g/eIUfclcu17.5-36.0[facility] on above:Order Comment: Specimen Type: BLOOD SPECIMEN Ordering Facility: [facility] Address: [address] [place], [place] [address]Performed By: #### 04041-0, 7 #### [facility] CLIA [id number] [address] [place] [address] [place] OF AMERICAMCV (RBC) [Entitic vol]104.0 jWPqpj41.0-100.0[facility] on above:Order Comment: Specimen Type: BLOOD SPECIMEN Ordering Facility: [facility] Address: [address] [place], [place] [address]Performed By: #### 58326-7, 4536-10 #### [facility] CLIA [id number] [address] [place] [address] STATES AMERICANucleated RBC (Bld) [#/Vol] 10*3/uLNormal<0.01[facility] on above:Order Comment: Specimen Type: BLOOD SPECIMEN Ordering Facility: [facility] Address: [address] [place], [place] [address]Performed By: #### 73206-2, 4536-10 #### [facility] [place] [id number] [address] [place] [address] [place] OF AMERICAPlatelet mean volume (Bld) [Entitic vol]10.6 fLNormal9.0-12.7CMemorial Health System on above: Order Comment: Specimen Type: BLOOD SPECIMEN Ordering Facility: [facility] Address: [address] [place], [place] [address]Performed By: #### 56644-9, 4536-10 #### [facility] CLIA [id number] [address] [place] [address] [place] OF AMERICAPlatelets (Bld) [#/Vol]239 10*3/fJZtqysw347-595JktnlqxiaMer[facility] Health [facility] on above:Order Comment: Specimen Type: BLOOD SPECIMEN Ordering Facility: [facility] Address: [address] [place], [place] [address]Performed By: #### 05248-9, 7 #### [facility] CLIA [id number] [address] [place], [place] [address]RB (Bld) [#/Vol]4.80 10*6/uLNormal4.20-6.00[facility] on above:Order Comment: Specimen Type: BLOOD SPECIMEN Ordering Facility: [facility] Address: [address] [place], [place] [address]Performed By: #### 75018-6, 4537-7 #### [facility] CLIA [id number] [address] [place], [place] [address]W (Bld) [#/Vol]12.61 10*3/uLHigh3.70-11.00[facility] on above:Order Comment: Specimen Type: BLOOD SPECIMEN Ordering Facility: [facility] Address: [address] [place], [place] [address]Performed By: #### 53768-5, 4537-7 #### [facility] CLIA [id number] [address] [place], [place] [address]CNOVon 50-00-5629RMMQPvoggn Visit (RADHA) ESME STEVEN ([id number]) 1960 M Date Time Provider Department 06/30/24 [...] touching your toes, sit-ups, using row machine emt intermediate pain recommendations per primary care provider/pain [...] of arms and leg (more content not included)...NormalSamaritan North Health Center SerPl-mCnc on 64-95-3653KJT [Mass/Vol]0.6 mg/dLNormal<0.9ClevelCape Fear Valley Hoke HospitalComascension borgess lee hospital on above:Order Comment: Specimen Type: BLOOD SPECIMEN Ordering Facility: [facility] Address: [address] [place], [place] [address]Performed By: #### 1988-5, 3084-1, 08248-8 #### [facility] CLIA [id number] [address] [place] [address] [place] [address] [place] OF AMERICAComprehensive metabolic 2000 panelon 73-66-6945Khgvhoa [Mass/Vol]4.1 g/dLNormal3.9-4.9CMemorial Health System on above:Order Comment: Specimen Type: BLOOD SPECIMEN Ordering Facility: [facility] Address: [address] [place], [place] [address]Performed By: #### 1987-08, 3083-04, #### [facility] CLIA [id number] [address] [place] [address] [place] OF AMERICAALP [Catalytic activity/Vol] 67 U/QJsmkdl85-550KzlmpnczfMercy Health [facility] Hospital on above:Order Comment: Specimen Type: BLOOD SPECIMEN Ordering Facility: [facility] Address: [address] [place], [place] [address]Performed By: #### 1987-08, 3083-04, #### [facility] CLIA [id number] [address] [place], [place] [address] [place] OF AMERICAALT [Catalytic activity/Vol] 73 U/UQwqq06-05NwljejetmMercy Health [facility] Hospital on above:Order Comment: Specimen Type: BLOOD SPECIMEN Ordering Facility: [facility] Address: [address] [place], [place] [address]Performed By: #### 1987-08, 3083-04, #### [facility] CLIA [id number] [address] [place], [place] [address] [place] OF AMERICAAnion gap [Moles/Vol]14 mmol/LNormal8-15[facility] on above:Order Comment: Specimen Type: BLOOD SPECIMEN Ordering Facility: [facility] Address: [address] [place], [place] [address]Performed By: #### 1987-08, 3083-04, #### [facility] CLIA [id number] [address] [place] [address] [place] OF AMERICAAST [Catalytic activity/Vol] 35 U/GPxaxcv27-24WlxiattrnMercy Health [facility] Hospital on above:Order Comment: Specimen Type: BLOOD SPECIMEN Ordering Facility: [facility] Address: [address] [place], [place] [address]Performed By: #### 1987-08, 3083-04, #### [facility] CLIA [id number] [address] [place], [place] [address] [place] OF AMERICABilirubin [Mass/Vol]0.7 mg/dLNormal0.2-1.3CMemorial Health System on above:Order Comment: Specimen Type: BLOOD SPECIMEN Ordering Facility: [facility] Address: [address] [place], [place] [address]Performed By: #### 1987-08, 3083-04, #### [facility] CLIA [id number] [address] [place], [place] [address] [place] OF AMERICACalcium [Mass/Vol]9.7 mg/dL Normal8.5-10.2CMemorial Health System on above:Order Comment: Specimen Type: BLOOD SPECIMEN Ordering Facility: [facility] Address: [address] [place], [place] [address]Performed By: #### 1987-08, 3083-04, #### [facility] CLIA [id number] [address] [place], [place] [address] [place] OF AMERICAChloride [Moles/Vol]97 mmol/YPod60-177ZsrfjvnmxMer[facility] Health [facility] on above:Order Comment: Specimen Type: BLOOD SPECIMEN Ordering Facility: [facility] Address: [address] [place], [place] [address]Performed By: #### 1987-08, 3083-04, #### [facility] CLIA [id number] [address] [place], [place] [address] [place] OF AMERICACO2 [Moles/Vol]24 mmol/L Bjdqzp90-44GxebfeejfMercy Health [facility] Hospital on above:Order Comment: Specimen Type: BLOOD SPECIMEN Ordering Facility: [facility] Address: [address] [place], [place] [address]Performed By: #### 1987-08, 3083-04, #### [facility] CLIA [id number] [address] [place], [place] [address] [place] OF AMERICACreatinine [Mass/Vol]0.93 mg/dLNormal0.73-1.22[facility] on above:Order Comment: Specimen Type: BLOOD SPECIMEN Ordering Facility: [facility] Address: [address] [place], [place] [address]Performed By: #### 1987-08, 3083-04, #### [facility] CLIA [id number] [address] [place], [place] [address] [place] OF AMERICACreatinine and Glomerular filtration rate.predicted panel (S/P/Bld)92 mL/min/1.73m???Normal>=60[facility] on above:Order Comment: Specimen Type: BLOOD SPECIMEN Ordering Facility: [facility] Address: [address] [place], [place] [address]Result Comment: Estimated Glomerular Filtration Rate (eGFR) is calculated using the 2020 CKD-EPI cre atinine equation. This equation utilizes serum creatinine, sex, and age as parameters. The creatinine assay has traceable calibration to isotope dilution- mass spectrometry. Refer to KDIGO guidelines for clinical interpretation. In patients with unstable renal function, e.g. those with acute kidney injury, the eGFR may not accurately reflect actual GFR.Performed By: #### 1987-08, 3083-04, #### [facility] CLIA [id number] [address] [place] [address] [place] OF AMERICAGlucose [Mass/Vol]213 mg/dL Yflk29-75ElifjtndjMercy Health [facility]sburg Hospital on above:Order Comment: Specimen Type: BLOOD SPECIMEN Ordering Facility: [facility] Address: [address] [place] [address]Xmqqzp Comment: The French Diabetes Association (ADA) provides guidance for cutoff [...] Standards of Medical Care in Diabetes 2016, French Diabetes Association. Diabetes Care. 2016.39(Suppl 1).Performed By: #### 1987-08, 3083-04, #### [facility] CLIA [id number] [address] [place] [address] [place] AMERICAPotassium [Moles/Vol]4.5 mmol/LNormal3.7-5.1CMemorial Health System on above:Order Comment: Specimen Type: BLOOD SPECIMEN Ordering Facility: [facility] Address: [address] [place], [place] [address]Performed By: #### 1987-08, 3083-04, #### [facility] CLIA [id number] [address] [place] [address] [place] AMERICAProtein [Mass/Vol]7.1 g/dL Normal6.3-8.0[facility] on above:Order Comment: Specimen Type: BLOOD SPECIMEN Ordering Facility: [facility] Address: [address] [place], [place] [address]Performed By: #### 1987-08, 3083-04, #### [facility] CLIA [id number] [address] [place] [address] [place] AMERICASodium [Moles/Vol]135 mmol/L Fyy858-792BqkgwzlgoMercy Health [facility] Hospital on above:Order Comment: Specimen Type: BLOOD SPECIMEN Ordering Facility: [facility] Address: [address] [place], [place] [address]Performed By: #### 1987-08, 3083-04, #### [facility] CLIA [id number] [address] [place], [place] [address] [place] AMERICAUrea nitrogen [Mass/Vol]20 mg/dLNormal9-24[facility] Clinic ClevelandComment on above:Order Comment: Specimen Type: BLOOD SPECIMEN Ordering Facility: [facility] Address: [address] [place], [place] [address]Performed By: #### 1988-5, 3084-1, 88858-9 #### [facility] CLIA [id number] [address] [place] [address] [place] AMERICAESR Westergren method (Bld) [Velocity]on 96-77-3139SKQ (Bld) [Velocity]12 mm/hNormal0-15L[facility] HospitalComascension borgess lee hospital on above:Order Comment: Specimen Type: BLOOD SPECIMEN Ordering Facility[facility] Address: [address] [place], [place] [address]Performed By: #### 59116-2, 4537-7 #### [facility] CLIA [id number] [address] [place] [address] [place] [facility] COUNTY HOSPITALErythrocyte distribution width Auto (RBC) [Ratio]on 64-76-5228Qxryiabtrwx distribution width (RBC) [Ratio]Erythrocyte distribution width [Ratio] by Automated count11.5-15.0 [facility] HospitalHematocrit Auto (Bld) [Volume fraction]on 30-06-0994Edkdpvsxhz (Bld) [Volume fraction]Hematocrit [Volume Fraction] of Blood by Automated count39.0-51.0[facility] HospitalHemoglobin [Mass/volume] in Bloodon 81-87-7550Utqdqtpwoi (Bld) [Mass/Vol]Hemoglobin [Mass/volume] in Blood13.0-17.0[facility] HospitalLaboratory - Chemistry and Chemistry - challengeon 46-05-8705Ggxdxvg [Mass/Vol]4.1 g/dL 3.9-4.9[facility] HospitalALP [Catalytic activity/Vol]67 U/L38-113 [facility] HospitalALT [Catalytic activity/Vol]73 U/SAxul91-18 [facility] HospitalAST [Catalytic activity/Vol]35 U/L14-40 [facility] HospitalBilirubin [Mass/Vol]0.7 mg/dL0.2-1.3FBerger HospitalCalcium [Mass/Vol]9.7 mg/dL8.5-10.2FBerger HospitalChloride [Moles/Vol]97 mmol/COxq42-471WdgzkglpyVan Wert County HospitalCO2 [Moles/Vol]24 mmol/V21-01ZpcemfreiVan Wert County HospitalCreatinine [Mass/Vol]0.93 mg/dL0.73-1.22[facility] HospitalGlucose [Mass/Vol] 213 mg/uGQwtw81-67AblomsjpxVan Wert County HospitalComment on above:The French Diabetes Association (ADA) provides guidance for cutoff [...] hyperglycemia or hyperglycemic crisis, random plasma glucose resultsgreater than or equal to 200 mg/dL meet the criteria for diagnosis of diabetes.Reference: Standardsof Medical Care in Diabetes 2016, French Diabetes Association. Diabetes Care. 2016.39(Suppl 1). Potassium [Moles/Vol]4.5 mmol/L3.7-5.1FTogus VA Medical Centerodium [Moles/Vol]135 mmol/SAlm449-017SpnntkgxjVan Wert County HospitalUrate [Mass/Vol] 6.4 mg/dL4.0-8.1FBerger HospitalUrea nitrogen [Mass/Vol]20 mg/dL9-24[facility] HospitalLaboratory - Hematology and Cell countson 77-02-8427HJU (Bld) [Velocity]12 mm/h0-15[facility] HospitalLeukocytes [#/volume] corrected for nucleated erythrocytes in Blood by Automated counon 23-43-6630RMH corrected for nucl RBC Auto (Bld) [#/Vol] Leukocytes [#/volume] corrected for nucleated erythrocytes in Blood by Automated counHigh3.70-11.00[facility] HospitalMCH Auto (RBC) [Entitic mass]on 38-05-6200VQR (RBC) [Entitic mass]MCH [Entitic mass] by Automated count High26.0-34.0[facility] HospitalMCHC Auto (RBC) [Mass/Vol]on 33-77-9762WWOH (RBC) [Mass/Vol]MCHC [Mass/volume] by Automated count30.5-36.0 [facility] HospitalMCV Auto (RBC) [Entitic vol]on 73-05-7787LVN (RBC) [Entitic vol]MCV [Entitic volume] by Automated gvlkuLygp92.0-100.0 [facility] HospitalNo Panel Informationon 909868-Zxnhxlo Vitamin D Total19.2 ng/mLLow31.0-80.0[facility] HospitalComment on above:Classification of 25 [place] Vitamin D status: Deficiency/Insufficiency: < or = 30 ng/ml.Sufficiency/Optimal Levels: 31-80 ng/mLToxicity: > 100 ng/mL. Test performed by chemiluminescent immunoassay.C-Reactive Protein, Quantitative0.6 mg/dL<0.9[facility] HospitalEstimated GFR (CKD-EPI)92 mL/min/1.73m???>=60[facility] HospitalComment on above:Estimated Glomerular Filtration Rate (eGFR) is calculated using the 2020 CKD-EPI creatinine equation. This equation utilizes serum creatinine, sex, and age as parameters. The creatinine assay has traceable calibration to isotope dilution- mass spectrometry. Refer to KDIGO guidelines for clinical interpretation. In patients with unstable renal function, e.g. those with acute kidney injury, the eGFRmay not accurately reflect actual GFR.Nucleated RBC Auto (Bld) [#/Vol]on 21-78-8393Hczufhche RBC (Bld) [#/Vol]Nucleated erythrocytes [#/volume] in Blood by Automated count<0.01[facility] HospitalPlatelet mean volume Auto (Bld) [Entitic vol]on 39-16-9841Cgabtpkn mean volume (Bld) [Entitic vol] Platelet mean volume [Entitic volume] in Blood by Automated count9.0-12.7 [facility] HospitalPlatelets Auto (Bld) [#/Vol]on 06-30-2024 Platelets (Bld) [#/Vol]Platelets [#/volume] in Blood by Automated pxlal594-182 [facility] HospitalProtein [Mass/volume] in Serum or Plasmaon 85-72-6233Pbxqspu [Mass/Vol]Protein [Mass/volume] in Serum or Plasma6.3-8.0 [facility] HospitalRBC Auto (Bld) [#/Vol]on 84-14-6209JML (Bld) [#/Vol]Erythrocytes [#/volume] in Blood by Automated count4.20-6.00Holzer Health Systemerum or plasma anion gap determinationon 06-64-5774Qzdjp gap [Moles/Vol]Serum or plasma anion gap determination8-15[facility] HospitalUrate SerPl-mCncon 95-07-3514Jjtnz [Mass/Vol]6.4 mg/dLNormal 4.0-8.1CMemorial Health System on above:Order Comment: Specimen Type: BLOOD SPECIMEN Order[facility] Address: [address] [place], [place] [address]Performed By: #### 1988-5, 3084-1, 82436-8 #### [facility] CLIA [id number] [address] [place] [address] [place] [address] [place] OF AMERICACT WATCHMAN FULL CONTRASTon 26-08-2477PJ WATCHMAN FULL CONTRASTInterpreted By: Marcial Boyd, ADDENDUM: Technical: The following [...] PM -------- ORIGINAL REPORT -------- Dictation workstation: [id number] Interpreted By: Marcial Barreto, STUDY: CT WATCHMAN FULL CONTRAST; 06/13/2024 2:23 pm INDICATION: Signs/Symptoms:A-fib, Post Watchman. COMPARISON: None. ACCESSION NUMBER(S): [id number] ORDERING CLINICIAN: BIRD KOWALSKI TECHNIQUE: Using multidetector [...] surface/left atrial aspect of closure device. Reading Manufacturing Design Engineer: Dr. Marcial Barreto, Date: 06/15/2024 2:13 pm Signed by: Marcial Barreto 06/15/2024 2:17 PM Dictation workstation: [id number] Health St. Charles HospitalAlbumin [Mass/volume] in Serum or Plasma by Bromocresol green (BCG) dye binding methoOrdered By: Bird Kowalski on 05-14-8803Bwucumw BCG dye [Mass/Vol] Albumin [Mass/volume] in Serum or Plasma by Bromocresol green (BCG) dye binding metho3.5-5.7FBerger HospitalCalcium [Mass/volume] in Serum or PlasmaOrdered By: Bird Kowalski on 30-63-1110Ezbysjm [Mass/Vol]Calcium [Mass/volume] in Serum or Plasma8.6-10.3FBerger HospitalCarbon dioxide, total [Moles/volume] in Serum or PlasmaOrdered By: Bird Kowalski on 02-63-6052TF6 [Moles/Vol]Carbon dioxide, total [Moles/volume] in Serum or Plasma 21.0-31.0[facility] HospitalChloride [Moles/volume] in Serum or PlasmaOrdered By: Bird Kowalski 67-38-1850Fniadhar [Moles/Vol]Chloride [Moles/volume] in Serum or Znqlij12-163MgoelibnvVan Wert County Hospital Creatinine [Mass/volume] in Serum or PlasmaOrdered By: Bird Kowalski 49-30-4373Bxjrznoniw [Mass/Vol]Creatinine [Mass/volume] in Serum or Plasma 0.70-1.30[facility] HospitalGlucose [Mass/volume] in Serum or PlasmaOrdered By: Bird Kowalski on 02-36-6050Bjyfjwk [Mass/Vol]Glucose [Mass/volume] in Serum or UweipqBpxl91-259TlawregceVan Wert County Hospital Comment on above:ADA recommended reference rangeRandom Glucose Reference Range is dependent on time and content of last meal. Glucose of more than 200 mg/dL in a nonstressed, ambulatory subject supports the diagnosisof Diabetes Mellitus.No Panel InformationOrdered By: Bird Kowalski on 80-04-4616Nkoxufkdf GFR (CKD-EPI)> 60.0 mL/MinVan Wert County HospitalPharmacy Creatinine Clearance (Chem N/AFBerger HospitalPhosphate [Mass/volume] in Serum or Plasma Ordered By: Bird Kowalski on 88-15-7646Otvipjlwb [Mass/Vol]Phosphate [Mass/volume] in Serum or Plasma2.5-4.5FBerger Hospital Potassium [Moles/volume] in Serum or PlasmaOrdered By: Bird Kowalski on 17-81-3901Qkwuwpptm [Moles/Vol]Potassium [Moles/volume] in Serum or Plasma 3.5-5.1FBerger HospitalRenal Function Panelon 53-48-0801Dskiqqd [Mass/Vol]4.1 g/dLNormal3.5-5.7The [facility] Physician GroupComment on above: Result Comment: PERFORMED BY: [facility] [address] [place] [id number] PATHOLOGIST [employer] OSCAR HAY M.D.Performed By: #### RENAL ####[address] [address] USAAnion gap [Moles/Vol]11.9 mmol/LNormal6.0-15.0The [facility] Physician GroupComment on above:Performed By: #### RENAL ####[address] [address] USACalcium [Mass/Vol]9.1 mg/dLNormal8.6-10.3The [facility] Comment on above:Performed By: #### RENAL ####[address] [place] [address] USAChloride [Moles/Vol]102 mmol/IJktlmv02-206Brp [facility] Physician GroupComment on above:Performed By: #### RENAL ####[place] [address] [place]ACO2 [Moles/Vol]27.4 mmol/IVyttin94.0-31.0The [facility] Physician GroupComment on above:Performed By: #### RENAL ####[address] [address] USACreatinine [Mass/Vol]0.91 mg/dLNormal0.70-1.30The [facility] Physician GroupComment on above:Performed By: #### RENAL ####[address] [address] USAGFR/1.73 sq M.predicted MDRD (S/P/Bld) [Vol rate/Area]mL/min/{1.73_m2}NormalThe [facility] Physician GroupComment on above:Performed By: #### RENAL ####[place] [address] USAGlucose [Mass/Vol]169 mg/dL Aedx44-971Hgi [facility] Physician GroupComment on above:Result Comment: Random Glucose Reference Range is dependent on time and content of last meal. Glucose of more than 200 mg/dL in a nonstressed, ambulatory subject supports the diagnosis of Diabetes Mellitus. ADA recommended reference rangePerformed By: #### RENAL ####[place] [address] USAPhosphate [Mass/Vol]3.9 mg/dL Normal2.5-4.5The [facility] Physician GroupComment on above:Performed By: #### RENAL ####[place] [address] [place] Potassium [Moles/Vol]4.3 mmol/LNormal3.5-5.1The [facility] Physician GroupComment on above:Performed By: #### RENAL ####[address] [address] USASodium [Moles/Vol]137 mmol/MRethho180-739Gbd [facility] Physician GroupComment on above:Performed By: #### RENAL ####[address] [address] USAUrea nitrogen [Mass/Vol]24 mg/dLNormal7-25The [facility] Physician GroupComment on above: Performed By: #### RENAL ####[place] [address] USASerum or plasma anion gap determinationOrdered By: Bird Kowalski on 40-57-4843Qukoy gap [Moles/Vol]Serum or plasma anion gap determination6.0-15.0Holzer Health Systemodium [Moles/volume] in Serum or PlasmaOrdered By: Bird Kowalski on 22-79-6509Azawwt [Moles/Vol]Sodium [Moles/volume] in Serum or Ucgrnm096-343SyvuiiosiVan Wert County HospitalUrea nitrogen [Mass/volume] in Serum or PlasmaOrdered By: Bird Kowalski on 05-29-2024 Urea nitrogen [Mass/Vol]Urea nitrogen [Mass/volume] in Serum or Plasma7-25 [facility] HospitalBasic metabolic 2000 panelon 82-56-0237Enbze gap [Moles/Vol]13 mmol/L10 - 20 mmol/[facility] HospitalCalcium [Mass/Vol]9.1 mg/dL8.6 - 10.6 mg/dLUnSumma Health Barberton CampusChloride [Moles/Vol]100 mmol/L98 - 107 mmol/[facility] HospitalCO2 [Moles/Vol]26 mmol/L21 - 32 mmol/[facility] HospitalCreatinine [Mass/Vol]1.02 mg/dL0.50 - 1.30 mg/dLUnSumma Health Barberton CampusGFR/1.73 sq M.predicted among non-blacks MDRD (S/P/Bld) [Vol rate/Area]82 mL/min/{1.73_m2}- PINFUniBarnesville HospitalComment on above: Calculations of estimated GFR are performed using the 2020 CKD-EPI Study Refit equation without therace variable for the IDMS-Traceable creatinine methods. https://jasn.asnjournals.org/content//ASN.8151286735 Glucose [Mass/Vol]142 mg/iWYych21 - 99 mg/dLUnSumma Health Barberton Campus Potassium [Moles/Vol]3.7 mmol/L3.5 - 5.3 mmol/[facility] Sodium [Moles/Vol]135 mmol/FQdp260 - 145 mmol/[facility] Urea nitrogen [Mass/Vol]18 mg/dL6 - 23 mg/dLUnSumma Health Barberton Campus Blood type and Indirect antibody screen panel (Bld)on 13-82-9907UAE group Nom (Bld)AUnSumma Health Barberton CampusBlood group antibody screen QlNegative [facility] Hospital [facility] ColumbusD Ag Ql (Bld)PositiveUnBlanchard Valley Health System [facility] on above:2nd ABO test required. Order and Collect VERAB [facility] Hospital of ColumbusCB W Auto Differential panel (Bld)on 92-04-9919Unqucmhbt (Bld) [#/Vol]0.04 10*3/uLChildren's Hospital of Columbus Basophils/100 WBC (Bld)0.4 %0.0 - 2.0 %[facility] Eosinophils (Bld) [#/Vol]0.02 10*3/uLChildren's Hospital of Columbus Eosinophils/100 WBC (Bld)0.2 %0.0 - 6.0 %[facility] Erythrocyte distribution width (RBC) [Ratio]11.8 %11.5 - 14.5 %[facility] of ColumbusHematocrit (Bld) [Volume fraction]45.3 %41.0 - 52.0 % [facility] ColumbusHemoglobin (Bld) [Mass/Vol]15.6 g/dL13.5 - 17.5 g/dLUnSumma Health Barberton CampusImmature granulocytes (Bld) [#/Vol]0.09 10*3/uLChildren's Hospital of ColumbusImparkland health center granulocytes/100 WBC (Bld)0.9 % 0.0 - 0.9 %[facility] on above:Immature Granulocyte Count (IG) includes promyelocytes, myelocytes and metamyelocytes but does not include bands. Percent differential counts (%) should be interpreted in the context of the absolute cell counts (cells/UL).Interpretation and review of laboratory resultsAbnormalUniversSt. Vincent Carmel HospitalLymphocytes (Bld) [#/Vol]1.14 10*3/uLLowUnSumma Health Barberton CampusLymphocytes/100 WBC (Bld) 11 %13.0 - 44.0 %[facility] HospitalH (RBC) [Entitic mass]35.9 jfZvvy55.0 - 34.0 pgUnSumma Health Barberton CampusMCHC (RBC) [Mass/Vol]34.4 g/dL32.0 - 36.0 g/dLChildren's Hospital of ColumbusMCV (RBC) [Entitic vol]104 tFHwwv52 - 100 fLUniBarnesville HospitalMonocytes (Bld) [#/Vol]0.74 10*3/uLChildren's Hospital of ColumbusMonocytes/100 WBC (Bld)7.1 %2.0 - 10.0 % [facility] Hospital of ColumbusNeutrophils (Bld) [#/Vol]8.36 10*3/uLDayton Children's HospitalComment on above:Percent differential counts (%) should be interpreted in the context of the absolute cell counts (cells/uL). Neutrophils/100 WBC (Bld)80.4 %40.0 - 80.0 %[facility] Nucleated RBC/100 WBC (Bld) [Ratio]0 %[facility] ColumbusPlatelets (Bld) [#/Vol]143 10*3/TriHealthRBC (Bld) [#/Vol] 4.35 10*6/TriHealthWBC (Bld) [#/Vol]10.4 10*3/uL [facility] ColumbusUnSumma Health Barberton CampusCT watchman full contraston . No evidence of left atrial/left atrial appendage [...] Alonzo Holbrook 01/29/2024 10:03 AM Dictation workstation: [id number] MMODALInterpreted By: Alonzo Holbrook, STUDY: CT WATCHMAN FULL CONTRAST; 01/29/2024 9:29 am INDICATION: Signs/Symptoms:A-fib, Pre-Watchman, MARIO Sizing, R/O MARIO Thrombus. ,I48.91 Unspecified atrial fibrillation (Multi) COMPARISON: None. ACCESSION NUMBER(S): [id number] ORDERING CLINICIAN: BIRD KOWALSKI TECHNIQUE: Using multi-detector [...] suspicious osseous lesions within included chest. [facility] MMODALAlonzo Holbrook MD - 01/29/2024 Interpreted By: Alonzo Holbrook, STUDY: CT WATCHMAN FULL CONTRAST; 01/29/2024 9:29 am INDICATION: Signs/Symptoms:A-fib, Pre-Watchman, MARIO Sizing, R/O MARIO Thrombus. ,I48.91 Unspecified atrial fibrillation (Multi) COMPARISON: None. ACCESSION NUMBER(S): [id number] ORDERING CLINICIAN: BIRD KOWALSKI TECHNIQUE: Using multi-detector [...] Alonzo Holbrook 01/29/2024 10:03 AM Dictation workstation: [id number] [facility] Work Phone: Radiology Study observation (narrative)[facility] Work Phone: [phone] watchman full contrastOrdered By: Alonzo Holbrook on 93-91-0245VtzutpuewwSumma Health Barberton Campus Work Phone: [phone] 12 leadOrdered By: Adrien Burk on 42-84-5120Wcvhzy Etie39RTLGncnasrvkbRegency Hospital Cleveland East Work Phone: [phone] Raee52boxwzbaGjzkedstqvChildren's Hospital of [facility] Work Phone: [phone] Lhlrzs161 [facility] Work Phone: [phone] Esxam403 [facility] Work Phone: [phone] Ttvkfkqn043 [facility] Work Phone: [phone] Qulcd562 [facility] Work Phone: [phone] Rgnua08hdvsyNwofekhmzySt. Vincent Carm[facility] Work Phone: [phone] Vsuoecpy142 [facility] Work Phone: [phone] Ujsesipu553 [facility] Work Phone: [phone] Calculation(Darryltt)467 [facility] Work Phone: [phone] Nwglhoakvs552 [facility] Work Phone: [phone] Holt-10degrSelect [facility] [place] Work Phone: [phone] Nmaq823dtkvrfxMlmyidojmdSelect [facility] [place] Work Phone: [phone] Fkqbtb932 [facility] Work Phone: [phone] Dmxl31EUNCdcgxbkvkeRegency Hospital Cleveland East Work Phone: [phone] Health Barberton Campus Work Phone: [phone] 12 leadon 65-43-4571Vdapm rhythm with occasional Premature ventricular complexes Inferior infarct , age undetermined Abnormal ECG No previous ECGs available Confirmed by Adrien Burk ([id number]) on 01/29/2024 4:23:52 PMAdrien Garcia MD - 01/29/2024 Sinus rhythm with occasional Premature ventricular complexes Inferior infarct , age undetermined Abnormal ECG No previous ECGs available Confirmed by Adrien Burk ([id number]) on 01/29/2024 4:23:52 PM [facility] Work Phone: [phone] 11-56-3386Damiwuedr [Mass/Vol]1.43 mg/dL Low1.60 - 2.40 mg/dLUnSumma Health Barberton CampusNo Panel Informationon 73-29-8432Qiovgdifxdpypa and review of laboratory resultsAbnormalUSelect Medical Specialty Hospital - CincinnatiPT Coag (PPP) [Time]on 34-66-9770DJO Coag (PPP) [Relative time]1 {INR}0.9 - 1.1UnSumma Health Barberton CampusInterpretation and review of laboratory resultsNoHenry County HospitalProtime-INRon 01-29-2024 PT Coag (PPP) [Time]11 [facility] HospitalUS Heart Transthoracic Ordered By: Haris Beverly on 65-24-6095WP EF53 %[facility] Work Phone: [phone] Health Barberton Campus Work Phone: US Heart Transthoracicon 01-29-2024 [facility], [address] [place] [address] and TRANSTHORACIC ECHOCARDIOGRAM REPORT Patient Name: ESME STEVEN Reading Physician: [id number] Haris Beverly MD Study Date: 01/29/2024 Ordering Provider: [id number] SAMMI LOREDO MRN/PID: [id number] Fellow: Nurse: Date of /Age: 9 1960 / 63 years Roll Forger: Tanisha VASQUEZ Gender: M Additional Staff: Height: 177.00 cm Admit Date: 01/29/2024 Weight: 110.68 kg Admission Status: Inpatient - Routine BSA / BMI: 2.26 m2 / 35.33 kg/m2 Blood Pressure: 138/84 mmHg Department Location: [facility] [employer] Study Type: TRANSTHORACIC ECHO (TTE) LIMITED Diagnosis/ICD: Presence of other cardiac implants and grafts-Z95.818 Indication: Post LAAO CPT Code: Echo Limited-99850 Patient History: Pertinent History: A-Fib, CAD, Hyperlipidemia [...] an FDA cleared automated machine learning algorithm (Meetingmix.comGo Heart Failure by [employer]), the analysis of the apical 4-chamber echocardiogram [...] 53 % LV EF Reported: 53 % [id number] Haris Beverly MD Electronically signed on 01/29/2024 at 3:36:47 PM Final Haris Sevilla MD - 01/29/2024 [facility], [address] [place] [address] and TRANSTHORACIC ECHOCARDIOGRAM REPORT Patient Name: ESME Fischer Physician: [id number] Haris Beverly MD Study Date: 01/29/2024 Ordering Provider: [id number] SAMMI LOREDO MRN/PID: [id number] Fellow: Nurse: Date of /Age: 9 1960 / 63 years Roll Forger: Tanisha VASQUEZ Gender: M Additional Staff: Height: 177.00 cm Admit Date: 01/29/2024 Weight: 110.68 kg Admission Status: Inpatient - Routine BSA / BMI: 2.26 m2 / 35.33 kg/m2 Blood Pressure: 138/84 mmHg Department Location: [facility] [employer] Study Type: TRANSTHORACIC ECHO (TTE) LIMITED Diagnosis/ICD: Presence of other cardiac implants and grafts-Z95.818 Indication: Post LAAO CPT Code: Echo Limited-20412 Patient History: Pertinent History: A-Fib, CAD, Hyperlipidemia [...] machine learning algorithm (EchoGo Heart Failure by Enc[employer]), the analysis of the apical 4-chamber echocardiogram [...] 53 % LV EF Reported: 53 % [id number] Haris Beverly MD Electronically signed on 01/29/2024 at 3:36:47 PM Final [facility] Work Phone: [facility], [address] [place] [address] and TRANSTHORACIC ECHOCARDIOGRAM REPORT Patient Name: ESME STEVEN Reading Physician: [id number] Savana Williamson MD Study Date: 01/29/2024 Ordering Provider: [id number] SAMMI LOREDO MRN/PID: [id number] Fellow: Nurse: Date of /Age: 9 1960 / 63 years Roll Forger: Angela Tran RDCS Gender: M Additional Staff: Height: 177.80 cm Admit Date: Weight: 110.68 kg Admission Status: Inpatient - Routine BSA / BMI: 2.27 m2 / 35.01 kg/m2 Blood Pressure: 121/71 mmHg Department Location: [facility] [employer] Study Type: TRANSTHORACIC ECHO (TTE) LIMITED Diagnosis/ICD: Encounter for other preprocedural examination-Z01.818 Indication: Pre LAAO CPT Code: Echo Limited-61713 Patient History: Pertinent History: Persistent afib, ICM, [...] however appears to have an inferior/inferolateral wall secw4jj abnormality. Left Atrium: The left atrium is [...] however appears to have an inferior/inferolateral wall cffn1zn abnormality. 4. The left atrium is enlarged. 5. There is moderate mitral annular calcification. 6. Limited TTE pre LAAO closure device placement. 7. No prior echocardiogram available for comparison. QUANTITATIVE DATA SUMMARY: AORTA MEASUREMENTS: Normal Ranges: Ao Sinus, d: 4.30 cm (2.1-3.5cm) [id number] Savana Williamson MD Electronically signed on 01/29/2024 at 3:21:38 PM Final Savana Valenzuela MD - 01/29/2024 [facility], [address] [place] [address] and TRANSTHORACIC ECHOCARDIOGRAM REPORT Patient Name: ESME CISSEOWAN Reading Physician: [id number] Savana Williamson MD Study Date: 01/29/2024 Ordering Provider: [id number] SAMMI PANTOJAN/PID: [id number] Fellow: Nurse: Date of /Age: 9 1960 / 63 years Roll Forger: Angela Tran RDCS Gender: M Additional Staff: Height: 177.80 cm Admit Date: Weight: 110.68 kg Admission Status: Inpatient - Routine BSA / BMI: 2.27 m2 / 35.01 kg/m2 Blood Pressure: 121/71 mmHg Department Location: [facility] [employer] Study Type: TRANSTHORACIC ECHO (TTE) LIMITED Diagnosis/ICD: Encounter for other preprocedural examination-Z01.818 Indication: Pre LAAO CPT Code: Echo Limited-18556 Patient History: Pertinent History: Persistent afib, ICM, [...] however appears to have an inferior/inferolateral wall lbkl7qr abnormality. Left Atrium: The left atrium is [...] however appears to have an inferior/inferolateral wall dktu5ld abnormality. 4. The left atrium is enlarged. 5. There is moderate mitral annular calcification. 6. Limited TTE pre LAAO closure device placement. 7. No prior echocardiogram available for comparison. QUANTITATIVE DATA SUMMARY: AORTA MEASUREMENTS: Normal Ranges: Ao Sinus, d: 4.30 cm (2.1-3.5cm) [id number] Savana Williamson MD Electronically signed on 01/29/2024 at 3:21:38 PM Final [facility] Work Phone: US Heart TransthoracicOrdered By: Savana Williamson on 40-73-3126SikfjfdmveSumma Health Barberton Campus Work Phone: Basophils Auto (Bld) [#/Vol]Ordered By: Bird Kowalski on 61-22-1983Rrvmbwrcu (Bld) [#/Vol]0.1 10*3/uL0.0-0.2FBerger HospitalBasophils (Bld) [#/Vol]Automated basophil count0.0-0.2FBerger HospitalBasophils/100 WBC Auto (Bld)Ordered By: Bird Kowalski on 01-24-2024 Basophils/100 WBC (Bld)0.4 %.[facility] HospitalBasophils/100 WBC (Bld)Automated basophil %.[facility] HospitalCalcium [Mass/volume] in Serum or PlasmaOrdered By: Bird Kowalski on 76-23-6877Sgpvcyj [Mass/Vol]9.6 mg/dL8.6-10.3FBerger HospitalCalcium [Mass/Vol]Calcium [Mass/volume] in Serum or Plasma8.6-10.3FBerger HospitalCarbon dioxide, total [Moles/volume] in Serum or PlasmaOrdered By: Bird Kowalski on 34-43-5807LO9 [Moles/Vol]28.4 mmol/L21.0-31.0[facility] CO2 [Moles/Vol]Carbon dioxide, total [Moles/volume] in Serum or Vjvlzz83.0-31.0 [facility] HospitalChloride [Moles/volume] in Serum or Plasma Ordered By: Bird Kowalski on 72-07-4682Pvkmcbio [Moles/Vol]101 mmol/L98-107 [facility] HospitalChloride [Moles/Vol]Chloride [Moles/volume] in Serum or Inspxr45-310CtupajhzhVan Wert County HospitalCreatinine [Mass/volume] in Serum or PlasmaOrdered By: Bird Kowalski on 49-53-3098Vtdgusnvaw [Mass/Vol] 0.98 mg/dL0.70-1.30[facility] HospitalCreatinine [Mass/Vol] Creatinine [Mass/volume] in Serum or Plasma0.70-1.30[facility] HospitalEosinophils Auto (Bld) [#/Vol]Ordered By: Bird Kowalski on 01-24-2024 Eosinophils (Bld) [#/Vol]0.1 10*3/uL0.0-0.45[facility] Eosinophils (Bld) [#/Vol]Automated eosinophil count0.0-0.45[facility] HospitalEosinophils/100 WBC Auto (Bld)Ordered By: Bird Kowalski on 67-07-0174Bqctxpeklej/100 WBC (Bld)0.4 %.[facility] Eosinophils/100 WBC (Bld)Automated eosinophil %.[facility] HospitalErythrocyte distribution width Auto (RBC) [Ratio]Ordered By: Bird Kowalski on 96-86-9509Xegsofaueop distribution width (RBC) [Ratio]13.3 %12.0-14.8 [facility] HospitalErythrocyte distribution width (RBC) [Ratio] Erythrocyte distribution width [Ratio] by Automated count12.0-14.8[facility] HospitalGlucose [Mass/volume] in Serum or PlasmaOrdered By: Bird Kowalski on 70-19-7786Pqhxsfp [Mass/Vol]160 mg/jFXfpz50-791IfuelibvuVan Wert County HospitalComment on above:ADA recommended reference rangeRandom Glucose Reference Range is dependent on time and content of last meal. Glucose of more than 200 mg/dL in a nonstressed, ambulatory subject supports the diagnosisof Diabetes Mellitus.Glucose [Mass/Vol]Glucose [Mass/volume] in Serum or SxizgsKttm36-853KyvhmkiggVan Wert County HospitalComment on above:ADA recommended reference rangeRandom Glucose Reference Range is dependent on time and content of last meal. Glucose of more than 200 mg/dL in a nonstressed, ambulatory subject supports the diagnosisof Diabetes Mellitus.Hematocrit Auto (Bld) [Volume fraction]Ordered By: Bird Kowalski on 11-73-4971Cwlvbbykfv (Bld) [Volume fraction]46.5 %38.8-50.0[facility] HospitalHematocrit (Bld) [Volume fraction]Hematocrit [Volume Fraction] of Blood by Automated count 38.8-50.0[facility] HospitalHemoglobin [Mass/volume] in Blood Ordered By: Bird Kowalski on 70-10-3183Xryhojewoz (Bld) [Mass/Vol]16.0 g/dL 13.0-17.0[facility] HospitalHemoglobin (Bld) [Mass/Vol]Hemoglobin [Mass/volume] in Blood13.0-17.0[facility] HospitalLeukocytes [#/volume] corrected for nucleated erythrocytes in Blood by Automated coun Ordered By: Bird Kowalski on 28-51-3461BGZ corrected for nucl RBC Auto (Bld) [#/Vol]12.6 10*3/uLHigh4.1-10.5FBerger HospitalWBC corrected for nucl RBC Auto (Bld) [#/Vol]Leukocytes [#/volume] corrected for nucleated erythrocytes in Blood by Automated counHigh4.1-10.5FBerger HospitalLymphocytes Auto (Bld) [#/Vol]Ordered By: Bird Kowalski on 01-24-2024 Lymphocytes (Bld) [#/Vol]1.4 10*3/uL1.00-4.8[facility] Lymphocytes (Bld) [#/Vol]Lymphocytes [#/volume] in Blood by Automated count 1.00-4.8[facility] HospitalLymphocytes/100 WBC Auto (Bld)Ordered By: Bird Kowalski on 32-91-4631Zrtqhtqtwtf/100 WBC (Bld)11.4 %.[facility] HospitalLymphocytes/100 WBC (Bld)Lymphocytes/100 leukocytes in Blood by Automated count.[facility] Auto (RBC) [Entitic mass] Ordered By: Bird Kowalski on 40-30-3048UBL (RBC) [Entitic mass]36.3 pgHigh 27.5-35.2FC[facility] (RBC) [Entitic mass]MCH [Entitic mass] by Automated yxpumYnqz35.5-35.2FMemorial Health SystemHC Auto (RBC) [Mass/Vol]Ordered By: Bird Kowalski on 81-30-3890IKRU (RBC) [Mass/Vol]34.3 g/dL32.5-35.6FMemorial Health SystemHC (RBC) [Mass/Vol]MCHC [Mass/volume] by Automated count32.5-35.6FC[facility] Auto (RBC) [Entitic vol]Ordered By: Bird Kowalski on 80-00-9207TVN (RBC) [Entitic vol]105.8 lZKusk78.5-101Fairfield Medical CenterV (RBC) [Entitic vol]MCV [Entitic volume] by Automated bzmubFmzh43.5-101[facility] HospitalMonocytes Auto (Bld) [#/Vol]Ordered By: Bird Kowalski on 01-24-2024 Monocytes (Bld) [#/Vol]0.7 10*3/uL0.0-0.8[facility] Monocytes (Bld) [#/Vol]Automated blood monocyte count0.0-0.8[facility] HospitalMonocytes/100 WBC Auto (Bld)Ordered By: Bird Kowalski on 01-24-2024 Monocytes/100 WBC (Bld)5.5 %.[facility] HospitalMonocytes/100 WBC (Bld)Automated monocyte %.[facility] HospitalNeutrophils Auto (Bld) [#/Vol]Ordered By: Bird Kowalski on 31-75-1390Cqxyalqgkob (Bld) [#/Vol]10.4 10*3/uLHigh1.8-7.7FBerger HospitalNeutrophils (Bld) [#/Vol] Neutrophils [#/volume] in Blood by Automated countHigh1.8-7.7FBerger HospitalNeutrophils/100 WBC Auto (Bld)Ordered By: Bird Kowalski on 71-35-3955Lnxsgtpdout/100 WBC (Bld)82.3 %.[facility] Neutrophils/100 WBC (Bld)Automated neutrophil %.[facility] HospitalNo Panel InformationOrdered By: Bird Kowalski on 86-69-2097Wyeaqkbcn GFR (CKD-EPI)> 60.0 mL/MinVan Wert County HospitalPharmacy Creatinine Clearance (ChemN/AFBerger HospitalNucleated erythrocytes [Presence] in Blood by Automated countOrdered By: Bird Kowalski on 01-24-2024 Nucleated RBC Auto Ql (Bld)0.1 /100{WBC}0-0.5FBerger Hospital Nucleated RBC Auto Ql (Bld)Nucleated erythrocytes [Presence] in Blood by Automated count0-0.5FBerger HospitalPlatelet mean volume Auto (Bld) [Entitic vol]Ordered By: Bird Kowalski on 94-55-3740Vzqmuwpl mean volume (Bld) [Entitic vol]10.2 fLHigh6.6-10.1FBerger HospitalPlatelet mean volume (Bld) [Entitic vol]Platelet mean volume [Entitic volume] in Blood by Automated countHigh6.6-10.1FBerger HospitalPlatelets Auto (Bld) [#/Vol]Ordered By: Bird Kowalski on 01-07-9653Gxobzteka (Bld) [#/Vol]155 10*3/uL 150-450[facility] HospitalPlatelets (Bld) [#/Vol]Platelets [#/volume] in Blood by Automated vkuxl102-543RivwoxozsVan Wert County Hospital Potassium [Moles/volume] in Serum or PlasmaOrdered By: Bird Kowalski on 64-94-9837Qannrfubn [Moles/Vol]4.3 mmol/L3.5-5.1FBerger HospitalPotassium [Moles/Vol]Potassium [Moles/volume] in Serum or Plasma3.5-5.1 [facility] HospitalRBC Auto (Bld) [#/Vol]Ordered By: Bird Kowalski on 90-92-3561YPY (Bld) [#/Vol]4.40 10*6/uL3.90-5.60[facility] HospitalRBC (Bld) [#/Vol]Erythrocytes [#/volume] in Blood by Automated count 3.90-5.60Holzer Health Systemerum or plasma anion gap determinationOrdered By: Bird Kowalski on 86-61-6627Lkjlu gap [Moles/Vol]10.9 mmol/L6.0-15.0[facility] HospitalAnion gap [Moles/Vol]Serum or plasma anion gap determination6.0-15.0Holzer Health Systemodium [Moles/volume] in Serum or PlasmaOrdered By: Bird Kowalski on 28-53-7738Xynwfu [Moles/Vol]136 mmol/T655-418XlrnlausgHolzer Health Systemodium [Moles/Vol] Sodium [Moles/volume] in Serum or Fgiqbd676-411WgdwssbcjVan Wert County Hospital Urea nitrogen [Mass/volume] in Serum or PlasmaOrdered By: Bird Kowalski on 34-39-1476Wymi nitrogen [Mass/Vol]20 mg/dL7-[facility] Urea nitrogen [Mass/Vol]Urea nitrogen [Mass/volume] in Serum or Plasma7 [facility] HospitalWBC Auto (Bld) [#/Vol]Ordered By: Bird Kowalski on 27-03-4553HKH (Bld) [#/Vol]12.6 10*3/uLHigh4.1-10.5FBerger HospitalWBC (Bld) [#/Vol]Leukocytes [#/volume] in Blood by Automated countHigh 4.1-10.5FBerger HospitalCNCOon 35-35-7219WBMPRuvnqj TextNormal [facility] HospitalBasophils Auto (Bld) [#/Vol]on 00-44-3153Oawhqrcff (Bld) [#/Vol]0.1 10 3/uL0.0-0.1FBerger HospitalBasophils/100 WBC Auto (Bld)on 50-11-0438Xjihaswnk/100 WBC (Bld)0.7 %0.2-2.0[facility] HospitalCholesterol in LDL Calc [Mass/Vol]on 08-89-4592Fowrqdiyfyw in LDL [Mass/Vol]73.0 mg/dLVan Wert County HospitalComment on above:<100 mg/dl QUXQUVF689-066 mg/dl NEAR OR ABOVE BGGRCDL877-329 mg/dl BORDERLINE INFS697-261 mg/dl HIGH>190 mg/dl VERY HIGHCholesterol in VLDL Calc [Mass/Vol]on 45-79-6383Fzxqdwxxfhb in VLDL [Mass/Vol]15.0 mg/dLVan Wert County HospitalEosinophils/100 WBC Auto (Bld)on 88-75-4504Kbrbpdjiize/100 WBC (Bld)1.1 % 0.9-7.0[facility] HospitalErythrocyte distribution width Auto (RBC) [Ratio]on 47-88-8253Neaooelvcis distribution width (RBC) [Ratio]13.2 % 11.0-15.0[facility] HospitalEstimated glomerular filtration rate (GFR) non- Americanon 22-16-8748ZWY/1.73 sq M.predicted among non-blacks MDRD (S/P/Bld) [Vol rate/Area]mL/min/{1.73_m2}>=60[facility] HospitalGlobulin Calc (S) [Mass/Vol]on 20-09-4464Odnpxadp (S) [Mass/Vol]3.2 g/dL [facility] HospitalHematocrit Auto (Bld) [Volume fraction]on 77-60-2787Zxrgxshncw (Bld) [Volume fraction]43.6 %42.0-54.0[facility] HospitalHemoglobin [Mass/volume] in Bloodon 60-98-9458Hufqhjkoza (Bld) [Mass/Vol]15.2 g/dL14.0-18.0[facility] HospitalLaboratory - Chemistry and Chemistry - challengeon 39-52-9170Kgcsqjs [Mass/Vol]3.4 g/dL 3.4-5.0[facility] HospitalALP [Catalytic activity/Vol]53 U/L46-116 [facility] HospitalALT [Catalytic activity/Vol]48 U/L16-63 [facility] HospitalAST [Catalytic activity/Vol]19 U/L15-37 [facility] HospitalBilirubin [Mass/Vol]0.7 mg/dL0.2-1.0[facility] HospitalCalcium [Mass/Vol]8.6 mg/dL8.5-10.1FBerger HospitalChloride [Moles/Vol]103 mmol/L95-390WdqncjtilVan Wert County HospitalCholesterol [Mass/Vol]141 mg/dL<=200[facility] Cholesterol in HDL [Mass/Vol]53 mg/fL69-17ByowtnopcVan Wert County Hospital Comment on above:> or =60 mg/dl - LOW CARDIOVASCULAR RISK<40 mg/dl - HIGH CARDIOVASCULAR RISKCO2 [Moles/Vol]29.6 mmol/L21.0-32.0[facility] HospitalCreatinine [Mass/Vol]0.87 mg/dL0.70-1.30[facility] GFR/1.73 sq M.predicted MDRD (S/P/Bld) [Vol rate/Area]mL/min/{1.73_m2}>=60 [facility] HospitalGlucose [Mass/Vol]113 mg/cVQrqk61-653ZltphuijaVan Wert County HospitalPotassium [Moles/Vol]4.3 mmol/L3.5-5.1FBerger HospitalProtein [Mass/Vol]6.6 g/dL6.4-8.2FBerger Hospital Sodium [Moles/Vol]138 mmol/I195-725SddvyorjvVan Wert County HospitalTriglyceride [Mass/Vol]75 mg/dL<=150Van [facility] County HospitalTSH Qn1.694 m[IU]/L 0.358-3.740[facility] HospitalUrea nitrogen [Mass/Vol]19.0 mg/dL High7.0-18.0[facility] HospitalUrea nitrogen/Creatinine [Mass ratio]21.8 mg/mgVan Wert County HospitalLaboratory - Hematology and Cell countson 28-75-6797Lhxtckrv granulocytes/100 WBC (Bld)1.3 %High0.0-0.5 [facility] HospitalLeukocytes [#/volume] corrected for nucleated erythrocytes in Blood by Automated counon 06-64-6990TEW corrected for nucl RBC Auto (Bld) [#/Vol]11.4 10 3/uLHigh4.0-11.0[facility] Lymphocytes Auto (Bld) [#/Vol]on 50-54-7584Oojfxmogoir (Bld) [#/Vol]2.8 10 3/uL 1.2-3.8[facility] HospitalLymphocytes/100 WBC Auto (Bld)on 84-32-1122Hpenptwtecq/100 WBC (Bld)24.3 %20.5-60.0[facility] CenterH Auto (RBC) [Entitic mass]on 22-95-2832RNY (RBC) [Entitic mass]36.5 pg High25.9-34.0[facility] Medical CenterHC Auto (RBC) [Mass/Vol]on 28-70-7373UXMN (RBC) [Mass/Vol]34.9 g/dL29.9-35.2FBerger HospitalMCV Auto (RBC) [Entitic vol]on 90-16-7669SOT (RBC) [Entitic vol]104.6 fL High80.0-94.0[facility] HospitalMonocytes Auto (Bld) [#/Vol]on 72-91-1667Gbgyavffe (Bld) [#/Vol]1.0 10 3/uLHigh0.3-0.8[facility] HospitalMonocytes/100 WBC Auto (Bld)on 70-60-8714Hluarpjvl/100 WBC (Bld) 8.5 %1.7-12.0[facility] HospitalNeutrophils Auto (Bld) [#/Vol]on 32-07-7587Gbxxavrzojy (Bld) [#/Vol]7.3 10 3/uLHigh1.4-6.5FBerger HospitalNeutrophils/100 WBC Auto (Bld)on 86-17-2313Nlsosbwbkcw/100 WBC (Bld)64.1 %43.0-75.0[facility] HospitalNo Panel Informationon 03-77-8958Hkevcclzpxd # (Auto)0.1 10 3/uL0.0-0.7FBerger HospitalImmature Granulocyte # (Auto)0.15 10 3/uLHigh0.00-0.03[facility] HospitalProstate Specific Antigen Screen0.48 ng/mL<=4.00[facility] HospitalPlatelet mean volume Auto (Bld) [Entitic vol]on 11-21-2023 Platelet mean volume (Bld) [Entitic vol]10.6 fL9.5-13.5FBerger HospitalPlatelets Auto (Bld) [#/Vol]on 54-11-6787Umwonmmwz (Bld) [#/Vol] 180 10 3/iB485-279NhkweqcdiVan Wert County HospitalRBC Auto (Bld) [#/Vol]on 62-31-5164VVV (Bld) [#/Vol]4.17 10 6/uLLow4.70-6.10Holzer Health Systemerum or plasma albumin/globulin mass ratioon 26-67-8062Ccpfoql/Globulin [Mass ratio]1.1 {ratio}Holzer Health Systemerum or plasma anion gap determinationon 52-62-8097Whqul gap [Moles/Vol]9.7 mmol/LFTogus VA Medical Centererum or plasma total cholesterol/high density lipoprotein (HDL) cholesterol mass orin 81-85-3804Vbitqvybkbj.total/Cholesterol in HDL [Mass ratio]2.7 {ratio}[facility] HospitalComment on above:3.3 - 4.4 LOW RISK4.4 - 7.1 AVERAGE RISK7.1 - 11.0 MODERATE RISK>11.0 HIGH RISKLaboratory - Hematology and Cell countson 84-73-8623ORD (Bld) [Velocity]2 mm/h0-15[facility] HospitalNo Panel Informationon 61-34-6302Z-Reactive Protein, Quantitative0.8 mg/dL<0.9[facility] HospitalBasophils Auto (Bld) [#/Vol]Ordered By: Elliott Talley on 34-47-7333Rmbsgwflb (Bld) [#/Vol]0.0 10*3/uL0.0-0.2FBerger HospitalBasophils/100 WBC Auto (Bld) Ordered By: Elliott Talley on 98-26-2581Cgmvypnkw/100 WBC (Bld)0.5 %. [facility] HospitalEosinophils Auto (Bld) [#/Vol]Ordered By: Elliott Talley on 95-12-6028Bdfendxsjzx (Bld) [#/Vol]0.1 10*3/uL0.0-0.45 [facility] HospitalEosinophils/100 WBC Auto (Bld)Ordered By: Elliott Talley on 19-52-5476Nanimlxbvmo/100 WBC (Bld)0.8 %.[facility] HospitalErythrocyte distribution width Auto (RBC) [Ratio]Ordered By: Elliott Talley on 12-59-3433Taoqfjlcmel distribution width (RBC) [Ratio]15.2 %High12.0-14.8[facility] HospitalHematocrit Auto (Bld) [Volume fraction]Ordered By: Elliott Talley on 98-49-7896Lfqgwjotgq (Bld) [Volume fraction]47.9 %38.8-50.0[facility] HospitalHemoglobin [Mass/volume] in BloodOrdered By: Elliott Talley on 60-07-2752Zptuhzqgah (Bld) [Mass/Vol]16.1 g/dL13.0-17.0[facility] HospitalLeukocytes [#/volume] corrected for nucleated erythrocytes in Blood by Automated coun Ordered By: Elliott Talley on 49-49-1097HKU corrected for nucl RBC Auto (Bld) [#/Vol]7.6 10*3/uL4.1-10.5FBerger HospitalLymphocytes Auto (Bld) [#/Vol]Ordered By: Elliott Talley on 51-18-3036Pkjfoosbuwy (Bld) [#/Vol]1.0 10*3/uL1.00-4.8[facility] HospitalLymphocytes/100 WBC Auto (Bld)Ordered By: Elliott Talley on 27-90-8979Aajrszuxshc/100 WBC (Bld) 13.5 %.[facility] HospitalMCH Auto (RBC) [Entitic mass]Ordered By: Elliott Talley on 73-09-0356NAP (RBC) [Entitic mass]34.6 pg27.5-35.2 [facility] HospitalMCHC Auto (RBC) [Mass/Vol]Ordered By: Elliott Talley on 61-32-4444VALI (RBC) [Mass/Vol]33.7 g/dL32.5-35.6FBerger HospitalMCV Auto (RBC) [Entitic vol]Ordered By: Elliott Talley on 91-47-5329GFL (RBC) [Entitic vol]102.8 cZAydl72.5-101[facility] HospitalMonocytes Auto (Bld) [#/Vol]Ordered By: Elliott Talley on 23-12-7546Lhzdxtfdm (Bld) [#/Vol]0.5 10*3/uL0.0-0.8[facility] HospitalMonocytes/100 WBC Auto (Bld)Ordered By: Elliott Talley on 58-99-3378Hkhcpgios/100 WBC (Bld)6.4 %.[facility] HospitalNeutrophils Auto (Bld) [#/Vol]Ordered By: Elliott Talley on 50-16-4761Gdqasdrgyyu (Bld) [#/Vol]6.0 10*3/uL1.8-7.7FBerger HospitalNeutrophils/100 WBC Auto (Bld)Ordered By: Elliott Talley on 85-00-9736Cigfhnlywjs/100 WBC (Bld)78.8 %.[facility] Nucleated erythrocytes [Presence] in Blood by Automated countOrdered By: Elliott Talley on 76-75-5274Brvjjfojd RBC Auto Ql (Bld)0.0 /100{WBC}0-0.5 [facility] HospitalPlatelet mean volume Auto (Bld) [Entitic vol] Ordered By: Elliott Talley on 58-87-7783Pqipwrrg mean volume (Bld) [Entitic vol]9.1 fL6.6-10.1FBerger HospitalPlatelets Auto (Bld) [#/Vol] Ordered By: Elliott Talley on 92-03-1296Gavrjmwqw (Bld) [#/Vol]119 10*3/uL Txv197-793NnotjocdkVan Wert County HospitalRBC Auto (Bld) [#/Vol]Ordered By: Elliott Talley on 95-38-6245RVZ (Bld) [#/Vol]4.66 10*6/uL3.90-5.60[facility] HospitalWBC Auto (Bld) [#/Vol]Ordered By: Elliott Talley on 51-61-7763XAB (Bld) [#/Vol]7.6 10*3/uL4.1-10.5FBerger Hospital Activated partial thromboplastin time (aPTT) in platelet poor plasma by coagulation aOrdered By: Elliott Talley on 21-38-1868sHUG Coag (PPP) [Time] 27.6 s25.1-36.5FBerger HospitalComment on above:A hematocrit value greater than 55% may lead to inaccurate results in coagulation testing. Patientshaving hematocrit values >55% require a special collection tube for coagulation studies. Please contact the laboratory at [phone] for redraw instructions.Alanine aminotransferase [Enzymatic activity/volume] in Serum or PlasmaOrdered By: Elliott Talley on 32-64-5410JEH [Catalytic activity/Vol] 33 U/L7-52[facility] HospitalAlbumin [Mass/volume] in Serum or Plasma by Bromocresol green (BCG) dye binding methoOrdered By: Elliott Talley on 77-39-0362Iligamj BCG dye [Mass/Vol]3.5 g/dL3.5-5.7FBerger HospitalAlkaline phosphatase [Enzymatic activity/volume] in Serum or PlasmaOrdered By: Elliott Talley on 93-84-9578KOE [Catalytic activity/Vol]39 U/P28-906QdrrwibitVan Wert County HospitalAspartate aminotransferase [Enzymatic activity/volume] in Serum or PlasmaOrdered By: Elliott Talley on 13-45-8727CKS [Catalytic activity/Vol]19 U/L13-39 [facility] HospitalBilirubin.total [Mass/volume] in Serum or PlasmaOrdered By: Elliott Talley on 90-99-8634Foqofnivn [Mass/Vol]1.3 mg/dL High0.3-1.0[facility] HospitalComment on above:Samples from patients who have taken Naproxen have shown spurious elevation in Total Bilirubin levels. A metabolite of Naproxen, O-desmethylnaproxen, has been shown to interfere with the Jayro-Henrik method for measuring Total Bilirubin. Calcium [Mass/volume] in Serum or PlasmaOrdered By: Elliott Talley on 55-08-3086Upoijvs [Mass/Vol]8.6 mg/dL8.6-10.3FBerger Hospital Carbon dioxide, total [Moles/volume] in Serum or PlasmaOrdered By: Elliott Talley 66-67-5051DL8 [Moles/Vol]29.2 mmol/L21.0-31.0[facility] HospitalChloride [Moles/volume] in Serum or PlasmaOrdered By: Elliott Talley 00-85-8119Nlonvtqx [Moles/Vol]104 mmol/Q53-395OtvlvujvxVan Wert County HospitalCreatinine [Mass/volume] in Serum or PlasmaOrdered By: Elliott Gutierrezma 82-48-8999Nvodzeexoh [Mass/Vol]1.05 mg/dL0.70-1.30[facility] HospitalGlobulin Calc (S) [Mass/Vol]Ordered By: Elliott Talley 29-08-5816Qjvwelvt (S) [Mass/Vol]2.1 g/dLVan Wert County HospitalGlucose [Mass/volume] in Serum or PlasmaOrdered By: Elliott Talley on 30-18-9701Gozfjbv [Mass/Vol]101 mg/pXCrwx13-505KtevwyeyiVan Wert County HospitalComment on above:ADA recommended reference rangeRandom Glucose Reference Range is dependent on time and content of last meal. Glucose of more than 200 mg/dL in a nonstressed, ambulatory subject supports the diagnosisof Diabetes Mellitus.INR in Platelet poor plasma by Coagulation assayOrdered By: Elliott Talley on 25-85-8445WTD Coag (PPP) [Relative time]1.1 {INR}[facility] HospitalComment on above:INR Therapeutic Range A) Pre- and Peroperative OAT started two weeks before surgery. NOT HIP SURGERY: 1.5 - 2.5 HIP SURGERY: 2 - 3B) Primary and secondary prevention of venous THROMBOSIS: 2 - 3C) Active venous thrombosis, pulmonary embolismand prevention of recurrent venous thrombosis: 2 - 3D) Prevention of arterial thromboembolismincluding patients with mechanical heart valves: 3 - 4.5Magnesium [Mass/volume] in Serum or Plasma Ordered By: Elliott Talley on 65-64-6317Mrpgstsas [Mass/Vol]2.0 mg/dL 1.9-2.7FBerger HospitalNo Panel InformationOrdered By: Elliott Talley on 13-17-5929Rojnfrmws GFR (CKD-EPI)> 60.0 mL/MinVan Wert County HospitalPharmacy Creatinine Clearance (Chem90.65[facility] HospitalPotassium [Moles/volume] in Serum or PlasmaOrdered By: Elliott Talley on 97-45-1858Bcjodutqs [Moles/Vol]4.4 mmol/L3.5-5.1FBerger HospitalProtein [Mass/volume] in Serum or PlasmaOrdered By: Elliott Talley on 75-59-5522Bftliux [Mass/Vol]5.6 g/dLLow6.4-8.9[facility] HospitalProthrombin time (PT)Ordered By: Elliott Talley on 72-15-2959EG Coag (PPP) [Time]13.1 sHigh9.0-12.9[facility] HospitalComment on above:A hematocrit value greater than 55% may lead to inaccurate results in coagulation testing. Patientshaving hematocrit values >55% require a special collection tube for coagulation studies. Please contact the laboratory at [phone] for redraw instructions.Random cortisol measurement Ordered By: Elliott Talley on 20-94-6175Vkweyjuk [Mass/Vol]9.4 ug/dL [facility] HospitalComment on above:[facility] warp hand and method:BERTIN UNICEL DXI, POLYCLONAL ANTIBODY CORTISOL ASSAY. Reference range: AM 6 - 24 ug/dl PM <10 ug/dlSerum or plasma albumin/globulin mass ratioOrdered By: Elliott Talley on 40-65-3291Gaiqgti/Globulin [Mass ratio]1.7 {ratio}[facility]zer Health Systemerum or plasma anion gap determinationOrdered By: Elliott Talley on 25-94-5318Zughh gap [Moles/Vol] 9.2 mmol/L6.0-15.0Hol[facility] Health Systemodium [Moles/volume] in Serum or PlasmaOrdered By: Elliott Talley on 24-16-2664Dtkxln [Moles/Vol] 138 mmol/D972-813AuawepcrpVan Wert County HospitalUrea nitrogen [Mass/volume] in Serum or PlasmaOrdered By: Elliott Talley on 07-84-5399Akmj nitrogen [Mass/Vol]15 mg/dL7-25[facility] HospitalActivated partial thromboplastin time (aPTT) in platelet poor plasma by coagulation aOrdered By: Hermes Velez on 71-30-8966gHNC Coag (PPP) [Time]25.5 s25.1-36.5FBerger HospitalComment on above:A hematocrit value greater than 55% may lead to inaccurate results in coagulation testing. Patientshaving hematocrit values >55% require a special collection tube for coagulation studies. Please contact the laboratory at [phone] for redraw instructions.Alanine aminotransferase [Enzymatic activity/volume] in Serum or PlasmaOrdered By: Hermes Velez on 53-67-6841QQA [Catalytic activity/Vol]44 U/L7-52[facility] HospitalAlbumin [Mass/volume] in Serum or Plasma by Bromocresol green (BCG) dye binding methoOrdered By: Hermes Velez on 12-98-4449Orjwexy BCG dye [Mass/Vol]4.2 g/dL3.5-5.7FBerger HospitalAlkaline phosphatase [Enzymatic activity/volume] in Serum or PlasmaOrdered By: Hermes Velez on 40-62-7566OOW [Catalytic activity/Vol]46 U/V64-789XrvaqeaiiVan Wert County HospitalAspartate aminotransferase [Enzymatic activity/volume] in Serum or PlasmaOrdered By: Hermes Velez on 79-04-5185VXW [Catalytic activity/Vol]27 U/I90-34GakbsryfnVan Wert County HospitalBacterial blood cultureOrdered By: Hermes Velez on 08-30-2023 Bacteria identified Cx Nom (Bld)NO GROWTH 5 DAYSVan Wert County HospitalBasophils Auto (Bld) [#/Vol]Ordered By: Hermes Velez on 49-05-9500Xlzdhjyib (Bld) [#/Vol]0.1 10*3/uL0.0-0.2FBerger HospitalBasophils/100 WBC Auto (Bld)Ordered By: Hermes Velez on 21-92-6794Jgkxlqcjq/100 WBC (Bld)0.8 %. [facility] HospitalBilirubin Test strip Ql (U)Ordered By: Hermes Velez on 33-11-1942Btlrgeprz Ql (U)NegativeNegativeVan Wert County HospitalBilirubin.direct [Mass/volume] in Serum or PlasmaOrdered By: Hermes Velez on 22-99-3786Wxubltadv.direct [Mass/Vol]0.20 mg/dLHigh0.03-0.18FBerger HospitalBilirubin.total [Mass/volume] in Serum or PlasmaOrdered By: Hermes Velez on 19-10-3813Fixawbvtj [Mass/Vol]0.9 mg/dL0.3-1.0[facility] HospitalCOVID CepheidOrdered By: Erin Suresh on 08-30-2023 SARS-CoV-2 (COVID-19) Ab IA QlNegativeNegativeVan [facility]ert County Hospital Comment on above:This is a duplicate Cepheid Xpert Xpress CoV-2/Flu/RSV Plus RNA by RT-PCR result to be used for statistical tracking purpose only.SARS-CoV-2 (COVID-19) RNA ROSIE+probe Ql (Unsp spec)[facility] HospitalCOD-19 Detected/Not DetectedOrdered By: Elliott Talley on 82-04-9739YWOK-CoV-2 (COVID-19) RNA ROSIE+non-probe Ql (Nph)Not detectedNot DetectMercy Health Lorain HospitalComment on above:This is a duplicate RP2.1 COVID (PCR) result to be used for statistical tracking purpose only.Calcium [Mass/volume] in Serum or PlasmaOrdered By: Hermes Velez on 33-18-5563Rxvzemi [Mass/Vol]9.3 mg/dL8.6-10.3 [facility] HospitalCarbon dioxide, total [Moles/volume] in Serum or PlasmaOrdered By: Hermes Velez on 38-95-5374GX3 [Moles/Vol]25.1 mmol/L 21.0-31.0[facility] HospitalChloride [Moles/volume] in Serum or PlasmaOrdered By: Hermes Velez on 21-39-3534Gwngcrfq [Moles/Vol]100 mmol/L98-107 [facility] HospitalColor Auto (U)Ordered By: Hermes Velez on 42-16-0970Skhvj (U)YellowYellowVan Wert County HospitalCreatine kinase [Enzymatic activity/volume] in Serum or PlasmaOrdered By: Hermes Velez on 10-27-7009HW [Catalytic activity/Vol]37 U/X63-691OevdpvczsVan Wert County HospitalCreatinine [Mass/volume] in Serum or PlasmaOrdered By: Hermes Velez on 78-34-0521Ynsgxfkdvu [Mass/Vol]1.11 mg/dL0.70-1.30[facility] HospitalEosinophils Auto (Bld) [#/Vol]Ordered By: Hermes Velez on 08-30-2023 Eosinophils (Bld) [#/Vol]0.0 10*3/uL0.0-0.45[facility] Eosinophils/100 WBC Auto (Bld)Ordered By: Hermes Velez on 08-30-2023 Eosinophils/100 WBC (Bld)0.1 %.[facility] HospitalErythrocyte distribution width Auto (RBC) [Ratio]Ordered By: Hermes Velez on 08-30-2023 Erythrocyte distribution width (RBC) [Ratio]15.1 %12.0-14.8[facility] HospitalGlobulin Calc (S) [Mass/Vol]Ordered By: Hermes Velez on 08-30-2023 Globulin (S) [Mass/Vol]2.8 g/dLVan Wert County HospitalGlucose [Mass/volume] in Serum or PlasmaOrdered By: Hermes Velez on 27-22-8822Zpocqnx [Mass/Vol]123 mg/kW01-834WqyqftzszVan Wert County HospitalComment on above:ADA recommended reference rangeRandom Glucose Reference Range is dependent on time and content of last meal. Glucose of more than 200 mg/dL in a nonstressed, ambulatory subject supports the diagnosisof Diabetes Mellitus.Hematocrit Auto (Bld) [Volume fraction]Ordered By: Hermes Velez on 97-91-8765Fnykmxbhur (Bld) [Volume fraction]48.1 %38.8-50.0[facility] HospitalHemoglobin [Mass/volume] in BloodOrdered By: Hermes Velez on 78-18-4344Kqskxnqhdf (Bld) [Mass/Vol]16.2 g/dL13.0-17.0[facility] HospitalINR in Platelet poor plasma by Coagulation assayOrdered By: Hermes Velez on 43-72-2015ZBB Coag (PPP) [Relative time]1.1 {INR}[facility] HospitalComment on above: INR Therapeutic Range A) Pre- and Peroperative [...] By: Hermes Velez on 08-30-2023 Ketones (U) [Mass/Vol]NegativeNegativeVan Wert County HospitalLactate [Moles/volume] in Serum or PlasmaOrdered By: Tony Comer on 08-30-2023 Lactate [Moles/Vol]1.9 mmol/L0.5-2.2FBerger HospitalLeukocytes [#/volume] corrected for nucleated erythrocytes in Blood by Automated coun Ordered By: Hermes Velez on 13-60-6056DML corrected for nucl RBC Auto (Bld) [#/Vol]14.5 10*3/uL4.1-10.5FBerger HospitalLipase [Enzymatic activity/volume] in Serum or PlasmaOrdered By: Hermes Velez on 30-70-7955Yurfut [Catalytic activity/Vol]13.0 U/L11.0-82.0[facility] Lymphocytes Auto (Bld) [#/Vol]Ordered By: Hermes Velez on 14-78-8879Qaiomkkiwjk (Bld) [#/Vol]0.6 10*3/uL1.00-4.8[facility] HospitalLymphocytes/100 WBC Auto (Bld)Ordered By: Hermes Velez on 10-18-4782Pvuauuclfbx/100 WBC (Bld)4.4 %.[facility] HospitalMCH Auto (RBC) [Entitic mass]Ordered By: Hermes Velez on 18-80-9592HUR (RBC) [Entitic mass]34.5 pg27.5-35.2FBerger HospitalMCHC Auto (RBC) [Mass/Vol]Ordered By: Hermes Velez on 32-24-5687IIFL (RBC) [Mass/Vol]33.7 g/dL32.5-35.6FBerger HospitalMCV Auto (RBC) [Entitic vol]Ordered By: Hermes Velez on 13-91-1001GOO (RBC) [Entitic vol]102.3 fL83.5-101[facility] HospitalMonocyte distribution width [Entitic volume] in Blood by AutomatedOrdered By: Hermes Velez on 10-59-4315Qbtqgggk distribution width Auto (Bld) [Entitic vol]21.88 %High 0.00-20.00[facility] HospitalComment on above:For adults in ED, MDW > 20.0 may be associated with a higher risk of sepsis during the first 12 h rs of hospital admissionMonocytes Auto (Bld) [#/Vol]Ordered By: Hermes Velez on 75-39-1710Zrusfpvoz (Bld) [#/Vol]0.3 10*3/uL0.0-0.8[facility] HospitalMonocytes/100 WBC Auto (Bld)Ordered By: Hermes Velez on 08-30-2023 Monocytes/100 WBC (Bld)2.3 %.[facility] HospitalNatriuretic peptide B [Mass/Vol]Ordered By: Hermes Velez on 51-94-3837Avrpuiujfyb peptide B (Bld) [Mass/Vol]401.0 pg/mLHigh5-100[facility] HospitalNeutrophils Auto (Bld) [#/Vol]Ordered By: Hermes Velez on 64-79-0302Rqtaumlxkwt (Bld) [#/Vol]13.4 10*3/uL1.8-7.7FBerger HospitalNeutrophils/100 WBC Auto (Bld)Ordered By: Hermes Velez on 85-12-2611Qvenotwkxup/100 WBC (Bld)92.4 %. [facility] HospitalNitrite Test strip Ql (U)Ordered By: Hermes Velez on 62-43-5603Hakpgdv Ql (U)NegativeNegativeVan Wert County HospitalNo Panel InformationOrdered By: Hermes Velez on 46-47-9414Ujczxarah ID (NA Multiplex Assay)Presumptive Coag Neg. StaphVan Wert [facility] Hospital Bacterial ID (NA Multiplex Assay)Staphylococcus sp coag negAbnoMain Campus Medical CenterEstimated GFR (CKD-EPI)> 60.0 mL/MinVan Wert County HospitalPharmacy Creatinine Clearance (Chem82.75[facility] HospitalNucleated erythrocytes [Presence] in Blood by Automated countOrdered By: Hermes Velez on 52-36-7302Vaaxzscqk RBC Auto Ql (Bld)0.0 /100{WBC}0-0.5FBerger HospitalPlatelet mean volume Auto (Bld) [Entitic vol]Ordered By: Hermes Velez on 22-44-9192Dfehvxyr mean volume (Bld) [Entitic vol]8.7 fL6.6-10.1 [facility] HospitalPlatelets Auto (Bld) [#/Vol]Ordered By: Hermes Velez on 86-80-1874Zhybqcquw (Bld) [#/Vol]147 10*3/yS424-458ZsvphnvbiVan Wert County HospitalPotassium [Moles/volume] in Serum or PlasmaOrdered By: Hermes Velez on 03-30-6649Ybyypbigu [Moles/Vol]3.3 mmol/L3.5-5.1FBerger HospitalProtein Auto test strip (U) [Mass/Vol]Ordered By: Hermes Velez on 60-52-3203Oegrpxt (U) [Mass/Vol]NegativeNegativeVan Wert County HospitalProtein [Mass/volume] in Serum or PlasmaOrdered By: Hermes Velez on 73-21-5762Lseynmb [Mass/Vol]7.0 g/dL6.4-8.9[facility] Prothrombin time (PT)Ordered By: Hermes Velez on 49-15-3584ME Coag (PPP) [Time] 12.8 s9.0-12.9[facility] HospitalComment on above:A hematocrit value greater than 55% may lead to inaccurate results in coagulation testing. Patientshaving hematocrit values >55% require a special collection tube for coagulation studies. Please contact the laboratory at [phone] for redraw instructions.RBC Auto (Bld) [#/Vol]Ordered By: Hermes Velez on 70-75-5438YNN (Bld) [#/Vol]4.70 10*6/uL3.90-5.60[facility] HospitalRespiratory pathogens DNA and RNA panel - Nasopharynx by ROSIE with non-probe detectionOrdered By: Elliott Talley on 72-22-9033Vysnglddfpb pathogens DNA and RNA panel ROSIE+non-probe (Nph)[facility] Systemerum or plasma albumin/globulin mass ratioOrdered By: Hermes Velez on 09-58-9279Zoivbqk/Globulin [Mass ratio]1.5 {ratio}[facility] Systemerum or plasma anion gap determinationOrdered By: Hermes Velez on 26-90-7799Hrscg gap [Moles/Vol]14.2 mmol/L6.0-15.0[facility] Systemerum or plasma non- glucuronidated bilirubin measurement (mass/volume)Ordered By: Hermes Velez on 39-40-1079Xcqocvyxp.indirect [Mass/Vol]0.7 mg/dLHolzer Health Systemodium [Moles/volume] in Serum or PlasmaOrdered By: Hermes Velez on 22-04-9127Hgxdoq [Moles/Vol]136 mmol/T468-157VxdcymchoVan Wert County Hospital Specific gravity Auto test strip (U) [Rel density]Ordered By: Hermes Velez on 47-96-5328Suasvxio gravity (U) [Rel density]1.0161.001-1.030[facility] HospitalTroponin I.cardiac [Mass/volume] in Serum or Plasma by Detection limit <= 0.01 ng/Ordered By: Erin Suresh on 62-70-7704Pvfinxlz I.cardiac DL <= 0.01 ng/mL [Mass/Vol]16.9 pg/mL0.0-20.0[facility] HospitalUrea nitrogen [Mass/volume] in Serum or PlasmaOrdered By: Hermes Velez on 08-30-2023 Urea nitrogen [Mass/Vol]21 mg/dL7-25[facility] HospitalUrine clarity by refractometry automatedOrdered By: Hermes Velez on 72-30-0003Raiuuxn Refractometry automated (U)ClearClearFBerger HospitalUrine glucose measurement by automated test strip (mass/volume)Ordered By: Hermes Velez on 45-52-8476Nnqptyq Auto test strip (U) [Mass/Vol]Normal mg/dLNormMercy Health Anderson HospitalUrine hemoglobin detection by automated test stripOrdered By: Hermes Velez on 24-63-4225Qjbfxfutda Auto test strip Ql (U)NegativeNegative [facility] HospitalUrine leukocyte esterase detection by automated test stripOrdered By: Hermes Velez on 21-36-6846Kkjfaaebq esterase Auto test strip Ql (U)NegativeNegativeVan Wert County HospitalUrobilinogen Auto test strip (U) [Mass/Vol]Ordered By: Hermes Velez on 83-38-3924Tjynayoxgigw (U) [Mass/Vol]Normal mg/dLNormMercy Health Anderson HospitalWBC Auto (Bld) [#/Vol]Ordered By: Hermes Velez on 54-04-5756TQE (Bld) [#/Vol]14.5 10*3/uL 4.1-10.5FBerger HospitalpH Auto test strip (U)Ordered By: Hermes Velez on 27-24-2196cP (U)5.5 [pH]5.0-9.0[facility] HospitalEC [address] 27-72-7648BmiosqtrcrChildren's Hospital of Columbus Work Phone: Sinus with PVC.sCPChildren's Hospital for Rehabilitation Work Phone: Carbon dioxide, total [Moles/volume] in Serum or PlasmaOrdered By: Antonio Steele on 80-40-7718NY2 [Moles/Vol]26.4 mmol/L 21.0-31.0[facility] HospitalChloride [Moles/volume] in Serum or PlasmaOrdered By: Antonio Steele on 32-44-3990Xrxfsrpy [Moles/Vol]102 mmol/L 98-107[facility] HospitalPotassium [Moles/volume] in Serum or PlasmaOrdered By: Antonio Steele on 93-04-6985Xpnsaruvk [Moles/Vol]4.1 mmol/L3.5-5.1FTogus VA Medical Centererum or plasma anion gap determinationOrdered By: Antonio Steele on 36-70-1043Uxibo gap [Moles/Vol] 13.7 mmol/L6.0-15.0Holzer Health Systemodium [Moles/volume] in Serum or PlasmaOrdered By: Antonio Steele on 71-43-1931Hcrxgp [Moles/Vol]138 mmol/O746-978OibheyylqVan Wert County HospitalEC [address] 60-79-4027Igersh fibrillation with controlled rateCPChildren's Hospital for Rehabilitation Work Phone: CT biopsyon 07-29-6037KL biopsy5.3 U/L1.5-8.1FBerger HospitalComment on above:This test was developed and its performance characteristics determined by [facility]Bar[facility] [place] (RT-PLMI). It has not been cleared or approved by the FDA. [facility] is regulated under CLIA as qualified to perform high-complexity testing. Thistest is used for clinical purposes. It should not be regarded as investigational or for research.Laboratory - Chemistry and Chemistry - challengeon 99-93-6536VY [Catalytic activity/Vol]52 U/L51-298 [facility] HospitalCobalamin (Vitamin B12) [Mass/Vol]685 pg/mL 232-1245Van [facility] HospitalUrate [Mass/Vol]7.2 mg/dL4.0-8.1 [facility] HospitalLaboratory - Hematology and Cell countson 24-43-6130SVM (Bld) [Velocity]15 mm/h0-15[facility] HospitalNo Panel Informationon 81-75-3030H-Reactive Protein, Quantitative0.8 mg/dL<0.9 [facility] Systemerum or plasma calcidiol measurement (mass/volume)on 723009-agyupuopvrwtoe D3 [Mass/Vol]21.4 ng/mL31.0-80.0 [facility] HospitalComment on above:Classification of 25 [place] Vitamin D status: Deficiency/Insufficiency: < or = 30 ng/ml.Sufficiency/Optimal Levels: 31-80 ng/mLToxicity: > 100 ng/mL. Test performed by chemiluminescent immunoassay.BD DXA - AXIAL SKELETONon 72-75-7230HT DXA - AXIAL SKELETON* * *Final Report* * * DATE OF EXAM: Jun 28 2023 12:56PM LAUREANO 0804 - DXA - AXIAL SKELETON / PROCEDURE REASON: multiple diagnoses * * * * Physician Interpretation * * * * EXAMINATION: DXA BONE DENSITOMETRY BD DXA - AXIAL SKELETON, BD DXA - FOREARM SKELETON PATIENT DEMOGRAPHICS: Age: 62 years, Gender: Male SCANNER INFORMATION: DXA Model: Offerama Date Scanned: 06/28/2023 12:56 PM CLINICAL HISTORY: [...] had a previous bone density in the [facility] or the previous bone density was performed on a different DXA machine (new, updated model or different location) within the [facility]. VERTEBRAL FRACTURE ASSESSMENT Not performed. TRABECULAR [...] FOR MORE INFORMATION ABOUT DIAGNOSIS AND TREATMENT: [facility] for Osteoporosis and Metabolic Bone Disease:? www.ccf.org/arthritis/osteo National Osteoporosis Foundation:? www.nof.org International Society of Clinical Densitometry www.iscd.org School Photographs Detailer: RAQUEL Transcribe Date/Time: Jun 28 2023 1:37P Dictated by : KEREN BRAVO DO This examination was interpreted and the report reviewed and electronically signed by: KEREN BRAVO DO on Jun 28 2023 1:47PM EST [id number] Main Campus Medical Center DXA - FOREARM SKELETONon [id number] DXA - FOREARM SKELETON* * *Final Report* * * DATE OF EXAM: Jun 28 2023 12:59PM LAUREANO 0870 - BD DXA - FOREARM SKELETON / PROCEDURE REASON: multiple diagnoses * * * * Physician Interpretation * * * * EXAMINATION: DXA BONE DENSITOMETRY BD DXA - AXIAL SKELETON, BD DXA - FOREARM SKELETON PATIENT DEMOGRAPHICS: Age: 62 years, Gender: Male SCANNER INFORMATION: DXA Model: Lunar Prodigy Advance Date Scanned: 06/28/2023 12:56 PM CLINICAL HISTORY: [...] had a previous bone density in the [facility] or the previous bone density was performed on a different DXA machine (new, updated model or different location) within the [facility]. VERTEBRAL FRACTURE ASSESSMENT Not performed. TRABECULAR [...] FOR MORE INFORMATION ABOUT DIAGNOSIS AND TREATMENT: [facility] for Osteoporosis and Metabolic Bone Disease:? www.ccf.org/arthritis/osteo National Osteoporosis Foundation:? www.nof.org International Society of Clinical Densitometry www.iscd.org School Photographs Detailer: RAQUEL Transcribe Date/Time: Jun 28 2023 1:37P Dictated by : KEREN BRAVO DO This examination was interpreted and the report reviewed and electronically signed by: KEREN BRAVO DO on Jun 28 2023 1:47PM EST [id number] Regional Medical Center Radius and Ulna [Mass/Area] Bone densityon 60-11-9814Gdelthuhm [facility] Skeletal system.axial Views for bone densityon 47-59-3802Wqnwczbum ClinicBASIC METABOLIC PANLon 05-72-7600Nsvqy gap [Moles/Vol]10 mmol/LNormal5-15ProGraham Regional Medical CenterComment on above: Performed By: #### RAIMUNDO FULLER, [id number] #### [facility] ([id number]) [address], [address] [place], [place] [address]Kjzbirw [Mass/Vol]9.3 mg/dLNormal8.5-10.5PSouthview Medical CenterComment on above:Performed By: #### RAIMUNDO FULLER, 92878-6 #### [facility] ([id number]) [address], [address] [place], [place] [address]Rmlygmux [Moles/Vol]102 mmol/YPfwqjh55-724QztRnalglGraham Regional Medical CenterComment on above:Performed By: #### RAIMUNDO FULLER, #### [facility] [facility] ([id number]) [address], [address] [place], [place] [address]OK1 [Moles/Vol]25 mmol/SWikiqw60-31LbaWjncvtSouthview Medical Center Comment on above:Performed By: #### RAIMUNDO FULLER, 40761-8 #### [facility] ([id number]) [address], [address] [place], [place] [address]Wsvitkykbw [Mass/Vol]0.95 mg/dLNormal0.60-1.30[facility] Medical CenterComment on above:Result Comment: METHOD TRACEABLE TO IDMS STANDARD Performed By: #### RAIMUNDO FULLER, 18409-1 #### [facility] ([id number]) [address], [address] [place] [address]AUO/1.73 sq M.predicted among non-blacks MDRD (S/P/Bld) [Vol rate/Area]90 mL/min/{1.73_m2}Normal>59ProGraham Regional Medical CenterComment on above:Result Comment: Reported eGFR is based on the CKD-EPI 2020 equation that does not use a race coefficient.Performed By: #### RAIMUNDO FULLER, #### [facility] ([id number]) [address], [address] [place], [place] [address]Xebfjyh [Mass/Vol]117 mg/iBUxyu50-34HyvBmaskgCincinnati VA Medical Center Comment on above:Performed By: #### RAIMUNDO FULLER, #### [facility] ([id number]) [address] [place], [place] [address]Dxiijtgyv [Moles/Vol]3.9 mmol/LNormal3.5-5.0ProGraham Regional Medical CenterComment on above:Performed By: #### RAIMUNDO FULLER, #### [facility] ([id number]) [address], [address] [place], [place] [address]Dqwnam [Moles/Vol]137 mmol/QHzyqej599-760QvpPqpauv [facility]remont HospitalComment on above:Performed By: #### RAIMUNDO FULLER, #### [facility] ([id number]) [address], [facility] [address] [place], [place] [address]Ipfx nitrogen [Mass/Vol]20 mg/dLNormal5-27ProGraham Regional Medical CenterComment on above:Performed By: #### RAIMUNDO FULLER, #### [facility] ([id number]) [address], [address] [place], [place] [address]ONO AND AUTO DIFFon 94-86-4487RDNHVDXH BASOPHIL0.1 X10E9/LNormal 0.0-0.2PSouthview Medical CenterComment on above:Performed By: #### RAIMUNDO FULLER, #### [facility] ([id number]) [address] [address] [place], [place] [address]YIRAPIHJ NEUTROPHIL5.9 X10E9/LNormal1.5-6.6ProMain Campus Medical Centerca Metamora HospitalComment on above:Performed By: #### CBCRAIMUNDO Pollard, #### [facility] ([id number]) [address], [address] [place], [place] [address]Adsegilkg/100 WBC (Bld)0.6 %[facility] Comment on above:Performed By: #### CBCRAIMUNDO Pollard, #### [facility] ([id number]) [address], [address] [place], [place] [address]Tipfjdykgec (Bld) [#/Vol]0.1 10*3/uLNormal0.0-0.4[facility] Medical CenterComment on above:Performed By: #### RAIMUNDO FULLER, #### [facility] ([id number]) [address], [address] [place], [place] [address]Yjgbzzrtxvd/100 WBC (Bld)1.0 %NormalCincinnati VA Medical Center Comment on above:Performed By: #### RAIMUNDO FULLER, #### [facility] ([id number]) [address], [address] [place], [place] [address]Khudpslteyh distribution width (RBC) [Ratio]14.4 %Normal 11.5-15.0C[facility] Medical CenterComment on above:Performed By: #### CBCRAIMUNDO Pollard, #### [facility] ([id number]) [address], [address] [place], [place] [address]Htmojsequt (Bld) [Volume fraction]46.6 %Dpbxzq73-60NurPcatwwGraham Regional Medical CenterComment on above:Performed By: #### CBCRAIMUNDO Pollard, #### [facility] ([id number]) [address], [address] [place], [place] [address]Omjasmxhqd (Bld) [Mass/Vol]15.6 g/xVLsdyjj99.0-17.0[facility] Medical CenterComment on above:Performed By: #### RAIMUNDO FULLER, #### [facility] ([id number]) [address], [address] [place] [address]Nrcvejddnux (Bld) [#/Vol]2.2 10*3/uLNormal1.0-3.5PSouthview Medical CenterComment on above:Performed By: #### RAIMUNDO FULLER, #### [facility] ([id number]) [address], [address] [place], [place] [address]Suejhhvbwbf/100 WBC (Bld)25.1 %NormalProGraham Regional Medical Center Comment on above:Performed By: #### RAIMUNDO FULLER, #### [facility] ([id number]) [address], [address] [place], [place] [address]OBE (RBC) [Entitic mass]33.5 qxYaqqmx50-60AspIkpgbxCincinnati VA Medical CenterComment on above:Performed By: #### RAIMUNDO FULLER, #### [facility] ([id number]) [address], [address] [place] [address]QRFX (RBC) [Mass/Vol]33.4 g/pYUvzith06-40GvjUbzdlhGraham Regional Medical CenterComment on above:Performed By: #### RAIMUNDO FULLER, #### [facility] ([id number]) [address], [address] [place], [place] [address]ZRG (RBC) [Entitic vol]100 lBHarbyb87-209PkbXfqsiu [facility] HospitalComment on above:Performed By: #### RAIMUNDO FULLER, #### [facility] ([id number]) [address], [address] [place], [place] [address]Mubypubyr (Bld) [#/Vol]0.7 10*3/uLNormal0-0.9[facility] Medical CenterComment on above:Performed By: #### RAIMUNDO FULLER, #### [facility] ([id number]) [address], [address] [place] [address]Cxyzuvupu/100 WBC (Bld)7.5 %NormalCincinnati VA Medical Center Comment on above:Performed By: #### CBCRAIMUNDO Pollard, #### [facility] ([id number]) [address], [address] [place], [place] [address]Xveqwrceuiz/100 WBC (Bld)65.8 %NormalCincinnati VA Medical Center Comment on above:Performed By: #### RAIMUNDO FULLER, #### [facility] ([id number]) [address], [address] [place] [address]Sxewzrsi mean volume (Bld) [Entitic vol]9.3 fLNormal7-12 [facility] Medical CenterComment on above:Performed By: #### RAIMUNDO FULLER, #### [facility] ([id number]) [address], [address] [place], [place] [address]Vwgbxytxu (Bld) [#/Vol]216 10*3/vYZuncuc426-040DjbKiuzty [facility] HospitalComment on above:Performed By: #### RAIMUNDO FULLER, #### [facility] ([id number]) [address], [address] [place] [address]CTN COUNT4.65 X10E12/LNormal4.10-5.70[facility] Comment on above:Performed By: #### JONNY BMP, #### [facility] ([id number]) [address], [address] [place] [address]URE (Bld) [#/Vol]8.9 10*3/uLNormal4.0-11.0[facility] Medical CenterComment on above:Performed By: #### CBCA, BMP, 22966-9 #### [facility] ([id number]) [address] [facility], [address] [place], [place] [address]IIQBATTLMms 73-15-9249Ptvudotgd [Mass/Vol]1.5 mg/dLLow1.8-2.6 [facility] Medical CenterComment on above:Performed By: #### CMP, PINR, 65124- 9, 98163-6, CBCA, 92228-8, 15493-4 #### [facility] ([id number]) [address] [facility], [place], [place] [address]AEIF EKGon 68-90-2520EexUlwnhq[address] [place], [place] [address]Basophils Auto (Bld) [#/Vol]Ordered By: Melinda Verduzco on 27-07-5884Dygbzbatr (Bld) [#/Vol] 0.1 10*3/uL0.0-0.2FBerger HospitalBasophils/100 WBC Auto (Bld) Ordered By: Melinda Verduzco on 62-56-3952Cuopwxdxr/100 WBC (Bld)0.6 %.[facility] HospitalC reactive protein [Mass/volume] in Serum or Plasma Ordered By: Melinda Verduzco on 35-95-2566RHJ [Mass/Vol]0.5 mg/dL0.0-0.5 [facility] HospitalEosinophils Auto (Bld) [#/Vol]Ordered By: Melinda Verduzco on 01-71-6391Qobmvmbmhjl (Bld) [#/Vol]0.1 10*3/uL0.0-0.45 [facility] HospitalEosinophils/100 WBC Auto (Bld)Ordered By: Melinda Verduzco on 23-02-6767Pdcctegzhnp/100 WBC (Bld)0.4 %.[facility] HospitalErythrocyte distribution width Auto (RBC) [Ratio]Ordered By: Melinda Verduzco on 76-91-4249Hteqbowjwwr distribution width (RBC) [Ratio]14.5 % 12.0-14.8[facility] HospitalErythrocyte sedimentation rate by Photometric methodOrdered By: Melinda Verduzco on 52-93-7101SXM Photometric method (Bld) [Velocity]16 mm/hr0-19[facility] HospitalFibrin D- dimer [Presence] in Platelet poor plasma by Latex agglutinationOrdered By: Melinda Verduzco on 95-92-0722Epcmsv D-dimer LA Ql (PPP)213 ng/mL0-243[facility] HospitalComment on above:The reference range for D-dimer is <243 ng/mL [...] coagulation studies. Please contact the laboratory at [phone] for redraw instructions.Hematocrit Auto (Bld) [Volume fraction]Ordered By: Melinda Verduzco on 52-70-2232Eveeeyqebe (Bld) [Volume fraction]47.1 %38.8-50.0[facility] HospitalHemoglobin [Mass/volume] in BloodOrdered By: Melinda Verduzco on 70-89-2918Sxaydiiorh (Bld) [Mass/Vol]15.6 g/dL13.0-17.0[facility] HospitalLeukocytes [#/volume] corrected for nucleated erythrocytes in Blood by Automated counOrdered By: Melinda Verduzco on 22-56-3212GBN corrected for nucl RBC Auto (Bld) [#/Vol]15.1 10*3/uL4.1-10.5FBerger HospitalLymphocytes Auto (Bld) [#/Vol]Ordered By: Melinda Verduzco on 05-21-2023 Lymphocytes (Bld) [#/Vol]2.1 10*3/uL1.00-4.8[facility] Lymphocytes/100 WBC Auto (Bld)Ordered By: Melinda Verduzco on 05-21-2023 Lymphocytes/100 WBC (Bld)13.9 %.[facility] HospitalMCH Auto (RBC) [Entitic mass]Ordered By: Melinda Verduzco on 83-39-3049WYT (RBC) [Entitic mass] 33.3 pg27.5-35.2FBerger HospitalMCHC Auto (RBC) [Mass/Vol] Ordered By: Melinda Verduzco on 98-07-8771HJGZ (RBC) [Mass/Vol]33.1 g/dL 32.5-35.6FBerger HospitalMCV Auto (RBC) [Entitic vol]Ordered By: Melinda Verduzco on 22-71-3745IYW (RBC) [Entitic vol]100.7 fL83.5-101 [facility] HospitalMonocytes Auto (Bld) [#/Vol]Ordered By: Melinda Verduzco on 45-84-6625Sefowfrwe (Bld) [#/Vol]1.0 10*3/uL0.0-0.8[facility] HospitalMonocytes/100 WBC Auto (Bld)Ordered By: Melinda Verduzco on 54-36-6278Zqhipaxpv/100 WBC (Bld)6.8 %.[facility] Neutrophils Auto (Bld) [#/Vol]Ordered By: Melinda Verduzco on 05-21-2023 Neutrophils (Bld) [#/Vol]11.8 10*3/uL1.8-7.7FBerger Hospital Neutrophils/100 WBC Auto (Bld)Ordered By: Melinda Verduzco on 05-21-2023 Neutrophils/100 WBC (Bld)78.3 %.[facility] HospitalNucleated erythrocytes [Presence] in Blood by Automated countOrdered By: Melinda Verduzco on 49-71-8537Jasazroob RBC Auto Ql (Bld)0.1 /100{WBC}0-0.5FBerger HospitalPlatelet mean volume Auto (Bld) [Entitic vol]Ordered By: Melinda Verduzco on 26-70-2941Ogadzzyl mean volume (Bld) [Entitic vol]8.7 fL6.6-10.1 [facility] HospitalPlatelets Auto (Bld) [#/Vol]Ordered By: Melinda Verduzco on 56-01-8346Gghdnqapd (Bld) [#/Vol]228 10*3/eG576-818BciazfgiyVan Wert County HospitalRBC Auto (Bld) [#/Vol]Ordered By: Melinda Verduzco on 18-93-3644RRX (Bld) [#/Vol]4.68 10*6/uL3.90-5.60[facility] HospitalWBC Auto (Bld) [#/Vol]Ordered By: Melinda Verduzco on 63-16-8306PCY (Bld) [#/Vol]15.1 10*3/uL4.1-10.5FBerger HospitalCBC AND AUTO DIFFon 54-13-8353TCXRCPVJ BASOPHIL0.1 X10E9/LNormal0.0-0.2PSouthview Medical Center Comment on above:Performed By: #### CMP, PINR, 00653-1, 83830-6, CBCA, 27352-7, 55430-5 #### [facility] ([id number]) [address] [place] [address]NBYDQXAD XGXSSJOMXE17.9 X10E9/LHigh1.5-6.6[facility] Medical CenterComment on above:Performed By: #### CMP, PINR, 80523-8, 09847-2, CBCA, 54197-8, 59136-0 #### [facility] ([id number]) [address] [place] [address]Truhyrief/100 WBC (Bld)0.4 %NormalCincinnati VA Medical Center Comment on above:Performed By: #### CMP, PINR, 47944-1, 32102-3, CBCA, 26386-0, 42696-7 #### [facility] ([id number]) [address] [place] [address]Ivuyxmzmllj (Bld) [#/Vol]0.0 10*3/uLNormal0.0-0.4[facility] Medical CenterComment on above:Performed By: #### CMP, PINR, 09504-2, 18368-4, CBCA, 59579-3, 04429-5 #### [facility] ([id number]) [address] [place] [address]Cbiazmofbeu/100 WBC (Bld)0.3 %NormalCincinnati VA Medical Center Comment on above:Performed By: #### CMP, PINR, 65077-2, 82228-4, CBCA, 92740-1, 04880-2 #### [facility] ([id number]) [address] [place] [address]Rdusxrikjha distribution width (RBC) [Ratio]14.2 %Normal 11.5-15.0ProGraham Regional Medical CenterComment on above:Performed By: #### CMP, PINR, 71157-6, 50023-6, CBCA, 31569-9, 00624-5 #### [facility] ([id number]) [address] [place] [address] 14[address]Kokwmbavsf (Bld) [Volume fraction]49.6 %Favz03-85GebEmqgwtGraham Regional Medical CenterComment on above:Performed By: #### CMP, PINR, 50873-9, 52651-4, CBCA, 97869-2, 98201-4 #### [facility] ([id number]) [address] [place] [address]Hnqrnauzvo (Bld) [Mass/Vol]16.7 g/wFGivobx24.0-17.0ProGraham Regional Medical CenterComment on above:Performed By: #### CMP, PINR, 56590-9, 93956-5, CBCA, 77613-6, 49071-1 #### [facility] ([id number]) [address] [place] [address]Oxnnckuenml (Bld) [#/Vol]1.6 10*3/uLNormal1.0-3.5[facility] Medical CenterComment on above:Performed By: #### CMP, PINR, 09461-4, 59009-7, CBCA, 29111-0, 17299-0 #### [facility] ([id number]) [address] [place] [address]Mcopafkuiuv/100 WBC (Bld)11.9 %NormalCincinnati VA Medical Center Comment on above:Performed By: #### CMP, PINR, 20198-0, 26307-8, CBCA, 56154-4, 00748-4 #### [facility] ([id number]) [address] [place] [address] 17989MHT (RBC) [Entitic mass]34.1 eoCabg68-17ZevBaypjrCincinnati VA Medical CenterComment on above:Performed By: #### CMP, PINR, 46862-0, 06167-3, CBCA, 63992-3, 16285-5 #### [facility] ([id number]) [address] [place] [address]25[address]EDFN (RBC) [Mass/Vol]33.7 g/vIXamhkg67-84TgpRxumkjGraham Regional Medical CenterComment on above:Performed By: #### CMP, PINR, 06755-3, 57160-3, CBCA, 35502-1, 41969-8 #### [facility] ([id number]) [address] [place] [address] 36144MGE (RBC) [Entitic vol]101 fVRwbj35-460AopEvsviaCincinnati VA Medical CenterComment on above:Performed By: #### CMP, PINR, 07202-6, 37173-8, CBCA, 58484-9, 90342-5 #### [facility] ([id number]) [address] [place] [address] 73783Wgnzmdxmc (Bld) [#/Vol]0.5 10*3/uLNormal0-0.9[facility] Medical CenterComment on above:Performed By: #### CMP, PINR, 04402-2, 42371-2, CBCA, 03314-1, 68243-4 #### [facility] ([id number]) [address] [place] [address] 52592Sdpveissk/100 WBC (Bld)3.7 %NormalCincinnati VA Medical Center Comment on above:Performed By: #### CMP, PINR, 32217-0, 57906-8, CBCA, 23818-5, 27799-4 #### [facility] ([id number]) [address] [place] [address] 94[address]Qiqreglctkk/100 WBC (Bld)83.7 %NormalCincinnati VA Medical Center Comment on above:Performed By: #### CMP, PINR, 18509-2, 49641-9, CBCA, 30050-4, 82173-4 #### [facility] ([id number]) [address] [place] [address] 03877Naseqrpm mean volume (Bld) [Entitic vol]8.5 fLNormal7-12 [facility] Medical CenterComment on above:Performed By: #### CMP, PINR, 64518- 9, 11817-0, CBCA, 97677-7, 83321-4 #### [facility] ([id number]) [address] [place] [address] 20520Knfauqpgy (Bld) [#/Vol]264 10*3/aTIustbv557-739AgyZubrep [facility]remont HospitalComment on above:Performed By: #### CMP, PINR, 31727-1, 86885-7, CBCA, 08433-2, 61676-1 #### [facility] ([id number]) [address] [place] [address] 42469ROI COUNT4.89 X10E12/LNormal4.10-5.70ProGraham Regional Medical Center Comment on above:Performed By: #### CMP, PINR, 66870-7, 15254-9, CBCA, 00636-5, 00232-0 #### [facility] ([id number]) [address] [place] [address] 03678BNQ (Bld) [#/Vol]13.0 10*3/uLHigh4.0-11.0ProGraham Regional Medical CenterComment on above:Performed By: #### CMP, PINR, 58527-7, 29468-4, CBCA, 66171-9, 08824-7 #### [facility] ([id number]) [address] [place] [address] 16456JBGKKDOAJQJPL METABOLIC PANELon 34-29-3466Yjhhctl [Mass/Vol]4.4 g/dLNormal3.2-5.3PSouthview Medical CenterComment on above:Performed By: #### CMP, PINR, 39455-5, 75216-1, CBCA, 75318-2, 85110-9 #### [facility] ([id number]) [address] [place] [address] 79737GRS [Catalytic activity/Vol]69 U/VRjngbs80-019ZqtKazujbGraham Regional Medical CenterComment on above:Performed By: #### CMP, PINR, 69923-3, 06167-7, CBCA, 51257-9, 71397-0 #### [facility] ([id number]) [address] [place] [address] 85376AFZ [Catalytic activity/Vol]31 U/LNormal0-40ProGraham Regional Medical CenterComment on above:Performed By: #### CMP, PINR, 11081-5, 06009-7, CBCA, 87740-0, 01830-8 #### [facility] ([id number]) [address] [place] [address] 12440Fewhg gap [Moles/Vol]9 mmol/LNormal5-15ProGraham Regional Medical CenterComment on above:Performed By: #### CMP, PINR, 34877-0, 45770-2, CBCA, 23645-2, 63110-9 #### [facility] ([id number]) [address] [place] [address] 75142XJO [Catalytic activity/Vol]26 U/LNormal0-41ProGraham Regional Medical CenterComment on above:Performed By: #### BINH, PINR, 15100-4, 98852-5, CBCA, 58409-3, 68683-9 #### [facility] ([id number]) [address] [place] [address] 86670Xhpqbxvwf [Mass/Vol]0.8 mg/dLNormal0.3-1.2PSouthview Medical CenterComment on above:Performed By: #### BINH, PINR, 06841-3, 10380-1, CBCA, 56858-1, 93535-7 #### [facility] ([id number]) [address] [place] [address] 38541Sleuapj [Mass/Vol]9.6 mg/dLNormal8.5-10.5PSouthview Medical CenterComment on above:Performed By: #### CMP, PINR, 13546-2, 18095-5, CBCA, 49849-6, 00898-9 #### [facility] ([id number]) [address] [place] [address] 00210Sqxamlcz [Moles/Vol]99 mmol/BKdmffr57-306TzdJmguywGraham Regional Medical CenterComment on above:Performed By: #### CMP, PINR, 14172-3, 49065-4, CBCA, 37899-8, 95785-6 #### [facility] ([id number]) [address] [place] [address] 03860YE2 [Moles/Vol]24 mmol/WCekeyc51-56EmrChrzujSouthview Medical Center Comment on above:Performed By: #### CMP, PINR, 29091-4, 99310-2, CBCA, 46480-8, 79959-4 #### [facility] ([id number]) [address] [place] [address] 08867Ajaybvnmhn [Mass/Vol]1.26 mg/dLHigh0.70-1.20[facility] CenterComment on above:Result Comment: METHOD TRACEABLE TO IDMS STANDARD Performed By: #### CMP, PINR, 55238-4, 95885-6, CBCA, 70925-7, 81849-9 #### [facility] ([id number]) [address] [place] [address] 97001MLA/1.73 sq M.predicted among non-blacks MDRD (S/P/Bld) [Vol rate/Area]64 mL/min/{1.73_m2}Normal>59C[facility] Medical CenterComment on above:Result Comment: Reported eGFR is based on the CKD-EPI 2020 equation that does not use a race coefficient.Performed By: #### CMP, PINR, 87310-0, 92890-2, CBCA, 07424-9, 09887-5 #### [facility] ([id number]) [address] [place] [address] 16075Zpvzzjc [Mass/Vol]196 mg/vXThzx72-15LemUevisyCincinnati VA Medical Center Comment on above:Performed By: #### CMP, PINR, 84831-3, 77501-1, CBCA, 98587-2, 23160-9 #### [facility] ([id number]) [address] [place] [address] 80705Ovsqzgufu [Moles/Vol]3.8 mmol/LNormal3.5-5.0[facility] CenterComment on above:Performed By: #### BINH, PINR, 24063-5, 99530-0, CBCA, 32539-1, 74352-6 #### [facility] ([id number]) [address] [place] [address] 97421Pzrcbpf [Mass/Vol]7.7 g/dLNormal6.0-8.0ProGraham Regional Medical CenterComment on above:Performed By: #### BINH, PINR, 01247-3, 42943-4, CBCA, 75881-5, 18381-4 #### [facility] ([id number]) [address] [place] [address] 08506Qvxjut [Moles/Vol]132 mmol/LJbd845-988VmsDgqlzmGraham Regional Medical CenterComment on above:Performed By: #### BINH, PINR, 70296-2, 17264-8, CBCA, 17393-5, 60016-1 #### [facility] [place] ([id number]) [address] [place] [address] 90103Gbwm nitrogen [Mass/Vol]40 mg/dLHigh5-27ProGraham Regional Medical CenterComment on above:Performed By: #### BINH, PINR, 70124-3, 89636-8, CBCA, 23371-8, 31667-6 #### [facility] [place] ([id number]) [address] [place] [address] 30290YACJOKZEBnk 78-37-1434Bjcdkyhdd [Mass/Vol]1.7 mg/dLLow1.8-2.6 [facility] CenterComment on above:Performed By: #### BINH, PINR, 07276- 9, 30431-9, CBCA, 05789-0, 61622-7 #### [facility] [place] ([id number]) [address] [place] [address] 04798Tkwccvosmhf peptide B [Mass/Vol]on 31-37-4369Urrhakuvhqb peptide B (Bld) [Mass/Vol]206 pg/mLHigh<100.0ProGraham Regional Medical CenterComment on above:Performed By: #### CMP, PINR, 81318-0, 13974-3, CBCA, 42913-6, 98908-7 #### [facility] ([id number]) [address] [place] [address] 43457ZIBDQJY AND INRon 34-57-6380KSR Coag (PPP) [Relative time]1.1 {INR}Normal0.8-1.1PSouthview Medical CenterComment on above:Performed By: #### CMP, PINR, 19345-5, 18470-8, CBCA, 57910-6, 08102-5 #### [facility] [place] ([id number]) [address] [place] [address] 77650KE Coag (PPP) [Time]12.3 sNormal9.8-13.2PSouthview Medical CenterComment on above:Result Comment: NEW REFERENCE RANGEPerformed By: #### CMP, PINR, 79471-8, 35939-8, CBCA, 56520-3, 87703-3 #### [facility] [place] ([id number]) [address] [place] [address] [id number] Ion 07-07-1512Lpfmnrmb I.cardiac [Mass/Vol]0.01 ng/mL Normal0.00-0.04ProGraham Regional Medical CenterComment on above:Performed By: #### CMP, PINR, 34436-4, 06971-0, CBCA, 55587-8, 33534-7 #### [facility] [place] ([id number]) [address] [place] [address] 68548gNXF Coag (PPP) [Time]on 77-85-5529bOAU Coag (Bld) [Time]28 s Jtiaoi19-17NzoQsytahGraham Regional Medical CenterComment on above:Result Comment: NEW REFERENCE RANGEPerformed By: #### CMP, PINR, 26928-2, 29997-7, CBCA, 23907-5, 62090-6 #### [facility] [place] [facility] ([id number]) [address] [place] [address], [place], [place] [address]Odmsustxt Auto (Bld) [#/Vol]Ordered By: Sarai Mendez on 61-15-4696Qgrxxjtnt (Bld) [#/Vol]0.1 10*3/uL0.0-0.2FBerger HospitalBasophils/100 WBC Auto (Bld)Ordered By: Sarai Mendez on 01-29-2023 Basophils/100 WBC (Bld)0.6 %.[facility] HospitalEosinophils Auto (Bld) [#/Vol]Ordered By: Sarai Mendez on 21-75-1572Egcwmlytenc (Bld) [#/Vol] 0.0 10*3/uL0.0-0.45[facility] HospitalEosinophils/100 WBC Auto (Bld)Ordered By: Sarai Mendez on 60-00-8262Oluihvixhta/100 WBC (Bld)0.4 %. [facility] HospitalErythrocyte distribution width Auto (RBC) [Ratio]Ordered By: Sarai Mendez on 39-60-5156Qcjkvwgkcgj distribution width (RBC) [Ratio]13.8 %12.0-14.8[facility] HospitalHematocrit Auto (Bld) [Volume fraction]Ordered By: Sarai Mendez on 45-77-4619Nwgbcclbnt (Bld) [Volume fraction]41.9 %38.8-50.0[facility] HospitalHemoglobin [Mass/volume] in BloodOrdered By: Sarai Mendez on 92-85-4349Iadqcpyynh (Bld) [Mass/Vol]14.2 g/dL13.0-17.0[facility] HospitalLeukocytes [#/volume] corrected for nucleated erythrocytes in Blood by Automated coun Ordered By: Sarai Mendez on 27-43-7928IOH corrected for nucl RBC Auto (Bld) [#/Vol]11.9 10*3/uL4.1-10.5FBerger HospitalLymphocytes Auto (Bld) [#/Vol]Ordered By: Sarai Mendez on 40-24-0292Iguixlkvhjp (Bld) [#/Vol] 1.3 10*3/uL1.00-4.8[facility] HospitalLymphocytes/100 WBC Auto (Bld)Ordered By: Sarai Mendez on 10-13-4652Btcyvcqimvd/100 WBC (Bld)10.5 %. [facility] Auto (RBC) [Entitic mass]Ordered By: Sarai Mendez on 96-89-1529GNY (RBC) [Entitic mass]35.8 pg27.5-35.2FBerger HospitalMCHC Auto (RBC) [Mass/Vol]Ordered By: Sarai Mendez on 29-89-9111AAZI (RBC) [Mass/Vol]33.8 g/dL32.5-35.6FBerger HospitalMCV Auto (RBC) [Entitic vol]Ordered By: Sarai Mendez on 44-68-3477IAP (RBC) [Entitic vol]105.8 fL83.5-101[facility] HospitalMonocytes Auto (Bld) [#/Vol]Ordered By: Sarai Mendez on 48-92-1230Zybigpcff (Bld) [#/Vol]0.6 10*3/uL0.0-0.8[facility] HospitalMonocytes/100 WBC Auto (Bld)Ordered By: Sarai Mendez on 71-52-2482Jqbsjcgrt/100 WBC (Bld)5.3 %. [facility] HospitalNeutrophils Auto (Bld) [#/Vol]Ordered By: Sarai Mendez on 50-47-5278Bgwgkgrjuem (Bld) [#/Vol]9.9 10*3/uL1.8-7.7 [facility] HospitalNeutrophils/100 WBC Auto (Bld)Ordered By: Sarai Mendez on 32-87-5004Wxifdrayddm/100 WBC (Bld)83.2 %.[facility] HospitalNucleated erythrocytes [Presence] in Blood by Automated count Ordered By: Sarai Mendez on 08-76-4220Uyhhojpgd RBC Auto Ql (Bld)0.1 /100{WBC}0-0.5FBerger HospitalPlatelet mean volume Auto (Bld) [Entitic vol]Ordered By: Sarai Mendez on 86-43-9937Fpwmfjnk mean volume (Bld) [Entitic vol]8.4 fL6.6-10.1FBerger HospitalPlatelets Auto (Bld) [#/Vol]Ordered By: Sarai Mendez on 67-15-9247Avuesmbof (Bld) [#/Vol]187 10*3/vY017-982RaldfckbdVan Wert County HospitalRBC Auto (Bld) [#/Vol]Ordered By: Sarai Mendez on 15-99-7664ATR (Bld) [#/Vol]3.96 10*6/uL3.90-5.60[facility] HospitalWBC Auto (Bld) [#/Vol]Ordered By: Sarai Mendez on 94-13-9248MYK (Bld) [#/Vol]11.9 10*3/uL4.1-10.5FBerger Hospital Bilirubin Test strip Ql (U)Ordered By: Sarai Mendez on 64-20-6852Zudfizwhy Ql (U)NegativeNegativeVan Wert County HospitalCalcium [Mass/volume] in Serum or PlasmaOrdered By: Sarai Mendez on 83-55-5837Mqfotjn [Mass/Vol]9.3 mg/dL8.6-10.3FBerger HospitalCarbon dioxide, total [Moles/volume] in Serum or PlasmaOrdered By: Sarai Mendez on 27-18-3750KE0 [Moles/Vol]28.7 mmol/L21.0-31.0[facility] HospitalChloride [Moles/volume] in Serum or PlasmaOrdered By: Sarai Mendez on 01-26-2023 Chloride [Moles/Vol]101 mmol/U94-379QtkpzpsezVan Wert County HospitalColor Auto (U)Ordered By: Sarai Mendez on 44-17-5401Wfzjm (U)YellowYellowVan Wert County HospitalCreatinine [Mass/volume] in Serum or PlasmaOrdered By: Sarai Mendez on 25-81-6120Ullnlovofy [Mass/Vol]1.01 mg/dL0.70-1.30[facility] HospitalFructosamine [Moles/volume] in Serum or PlasmaOrdered By: Sarai Mendez on 88-15-4284Ajqmwxfupoww [Moles/Vol]192 umol/L0-285[facility] HospitalComment on above:Published reference interval for apparently healthysubjects between age 20 and 60 is 205 - 285 umol/L and in apoorly controlled diabetic population is 228 - 563 umol/Lwith a mean of 396 umol/L.Performed at: [facility] [id number] Director: Lucas Cooper PhD, Phone: [phone] [Mass/volume] in Serum or PlasmaOrdered By: Sarai Mendez on 09-57-4504Eoflgcn [Mass/Vol]126 mg/bJ20-471ZqovhgnvgVan Wert County HospitalComment on above:ADA recommended reference rangeRandom Glucose Reference Range is dependent on time and content of last meal. Glucose of more than 200 mg/dL in a nonstressed, ambulatory subject supports the diagnosisof Diabetes Mellitus.Ketones Auto test strip (U) [Mass/Vol]Ordered By: Sarai Mendez on 24-40-4771Obavmfr (U) [Mass/Vol]NegativeNegativeVan Wert County HospitalNitrite Test strip Ql (U)Ordered By: Sarai Mendez on 90-78-2132Hvdopba Ql (U)NegativeNegative [facility] HospitalNo Panel InformationOrdered By: Sarai Mendez on 52-68-1640Bkptnabjg GFR (CKD-EPI)> 60.0 mL/MinVan Wert County HospitalPharmacy Creatinine Clearance (ChemN/[facility] Potassium [Moles/volume] in Serum or PlasmaOrdered By: Sarai Mendez on 26-84-0909Rrushhlpo [Moles/Vol]4.2 mmol/L3.5-5.1FBerger HospitalProtein Auto test strip (U) [Mass/Vol]Ordered By: Sarai Mendez on 50-25-1517Fwwfaoz (U) [Mass/Vol]NegativeNegativeHolzer Health Systemerum or plasma anion gap determinationOrdered By: Sarai Mendez on 78-93-7369Ystvt gap [Moles/Vol]10.5 mmol/L6.0-15.0Holzer Health Systemodium [Moles/volume] in Serum or PlasmaOrdered By: Sarai Mendez on 83-28-0985Knbtdf [Moles/Vol]136 mmol/G450-723TkzxplmahVan Wert County Hospital Specific gravity Auto test strip (U) [Rel density]Ordered By: Sarai Mendez on 49-03-6247Psizopqa gravity (U) [Rel density]1.0191.001-1.030[facility] HospitalUrea nitrogen [Mass/volume] in Serum or PlasmaOrdered By: Sarai Mendez on 81-04-5046Gupb nitrogen [Mass/Vol]21 mg/dL7-25[facility] HospitalUrine clarity by refractometry automatedOrdered By: Sarai Mendez on 70-37-8689Dyiqyjo Refractometry automated (U)ClearCleMemorial Health System Marietta Memorial HospitalUrine glucose measurement by automated test strip (mass/volume)Ordered By: Sarai Mendez on 05-31-0490Krqomzv Auto test strip (U) [Mass/Vol]Normal mg/dLNormMercy Health Anderson HospitalUrine hemoglobin detection by automated test stripOrdered By: Sarai Mendez on 30-13-1258Utirdkibdp Auto test strip Ql (U)NegativeNegMcKitrick HospitalUrine leukocyte esterase detection by automated test stripOrdered By: Sarai Mendez on 68-31-1686Vplnmyzci esterase Auto test strip Ql (U) NegativeNegMcKitrick HospitalUrobilinogen Auto test strip (U) [Mass/Vol]Ordered By: Sarai Mendez on 99-34-2495Htcusjomuebt (U) [Mass/Vol]Normal mg/dLNormMercy Health Anderson HospitalpH Auto test strip (U)Ordered By: Sarai Mendez on 53-96-2173iG (U)7.0 [pH]5.0-9.0[facility] HospitalC-REACTIVE PROTEIN (CRP)on 47-25-0362XVQ [Mass/Vol]<0.9 mg/dLWilson HealthCK CREATINE KINASEon 47-64-5852VZ [Catalytic activity/Vol] 35 U/LLow51 - 298 U/LCleveland Mayo Clinic Health SystemComprehensive metabolic 2000 panelon 76-31-1843Lkqbgdb [Mass/Vol]4.9 g/dL3.9 - 4.9 g/dLDeerton ClinicALP [Catalytic activity/Vol]57 U/L38 - 113 U/LCleveland ClinicALT [Catalytic activity/Vol]27 U/L10 - 54 U/LCleveland ClinicAnion gap [Moles/Vol]15 mmol/L9 - 18 mmol/L Wilson HealthAST [Catalytic activity/Vol]16 U/L14 - 40 U/LCleveland [facility] Clinic [facility] System Bilirubin [Mass/Vol]0.7 mg/dL0.2 - 1.3 mg/dLWilson HealthCalcium [Mass/Vol] 10.3 mg/dLHigh8.5 - 10.2 mg/dLWilson HealthChloride [Moles/Vol]98 mmol/L97 - 105 mmol/LCleveland ClinicCO2 [Moles/Vol]24 mmol/L22 - 30 mmol/LClevelUniversity Hospitals Portage [facility] Creatinine [Mass/Vol]0.98 mg/dL0.73 - 1.22 mg/dLWilson HealthEstimated Glomerular Filtration Rate87 mL/min/1.73m>=60 mL/min/1.73mClevelUniversity Hospitals Portage Medical Center Glucose [Mass/Vol]120 mg/yIHupc68 - 99 mg/dLWilson HealthPotassium [Moles/Vol]4.3 mmol/L3.7 - 5.1 mmol/LCleveland ClinicProtein [Mass/Vol]7.1 g/dL 6.3 - 8.0 g/dLDunlap Memorial Hospitalodium [Moles/Vol]137 mmol/L136 - 144 mmol/L Wilson HealthUrea nitrogen [Mass/Vol]20 mg/dL9 - 24 mg/dLWilson Health RHEUMATOID FACTOR BLon 20-48-3267Qepnpgeefd factor Qn<16 IU/mLCleveland Mayo Clinic Health System URIC ACID BLOODon 04-09-7806Dfqjv [Mass/Vol]6.1 mg/dL4.0 - 8.1 mg/dLWilson HealthVITAMIN B12 BLOODon 15-25-3656Pkauiajww (Vitamin B12) [Mass/Vol]343 pg/mL 232 - 1,245 pg/mLCleveland Cook Hospital panel Auto (Bld)on 60-47-2950Xonlrdxpirp distribution width (RBC) [Ratio]12.9 %11.5 - 15.0 %Wilson HealthHematocrit (Bld) [Volume fraction]48.7 %39.0 - 51.0 %Wilson HealthHemoglobin (Bld) [Mass/Vol]16.3 g/dL13.0 - 17.0 g/dLBlanchard Valley Health System Blanchard Valley HospitalH (RBC) [Entitic mass]35.6 tdUocq17.0 - 34.0 pgClevelHennepin County Medical CenterHC (RBC) [Mass/Vol]33.5 g/dL30.5 - 36.0 g/dLWilson HealthMCV (RBC) [Entitic vol]106.3 vGZrqj17.0 - 100.0 fLCleveland ClinicNucleated RBC (Bld) [#/Vol]<0.01 k/uLWilson HealthPlatelet mean volume (Bld) [Entitic vol]10.7 fL9.0 - 12.7 fLCleveland ClinicPlatelets (Bld) [#/Vol] 207 10*3/uL150 - 400 k/uLWilson HealthRBC (Bld) [#/Vol]4.58 10*6/uL4.20 - 6.00 m/uLWilson HealthWBC (Bld) [#/Vol]12.21 10*3/uLHigh3.70 - 11.00 k/uL Wilson HealthESR Westergren method (Bld) [Velocity]on 20-63-4720YOB (Bld) [Velocity]2 mm/h0 - 15 mm/hrWood County Hospitalbumin [Mass/volume] in Serum or Plasma by Bromocresol green (BCG) dye binding methoOrdered By: Sarai Mendez on 07-52-2878Xtahqiq BCG dye [Mass/Vol]4.3 g/dL3.5-5.7FBerger HospitalGlucose mean value [Mass/volume] in Blood Estimated from glycated hemoglobinOrdered By: Sarai Mendez on 50-05-8231Ozloozq glucose Estimated from glycated hemoglobin (Bld) [Mass/Vol]114 mg/dLVan Wert County HospitalHemoglobin A1c percentageOrdered By: Sarai Mendez on 50-56-5859HxC5d (Bld) [Mass fraction]5.6 %4.3-5.6FBerger HospitalComment on above:Increased risk for diabetes: 5.7 - 6.4diabetes: >6.4glycemic control for adults with diabetes: <7.0Hemoglobin [Mass/volume] in BloodOrdered By: Sarai Mendez on 05-05-5581Nrejxyixgs (Bld) [Mass/Vol]14.7 g/dL13.0-17.0[facility] HospitalVitamin D+Metabolites [Mass/volume] in Serum or Plasma Ordered By: Sarai Mendez on 62-33-3901Blczrit D+Metabolites [Mass/Vol]13.3 ng/sR81-025YbrdlrumwVan Wert County HospitalComment on above:VITAMIN D STATUS 25(OH)VITAMIN D RANGE (ng/mL) Deficient <20 Insufficient 20 to <77Xlauetxfmo19 to 100Reference: Ras VÁZQUEZ,Tanika STILES, Sergio DELGADILLO, et al. Evaluation,treatment, and prevention of vitamin D deficiency; an Endocrine Society clinical practice guideline. JCEM. 2010; 96(7):1911-30.Activated partial thromboplastin time (aPTT) in platelet poor plasma by coagulation a Ordered By: Damien Holbrook on 92-65-5472vCWT Coag (PPP) [Time]24.5 s25.1-36.5 [facility] HospitalAlanine aminotransferase [Enzymatic activity/volume] in Serum or PlasmaOrdered By: Damien Holbrook on 43-89-8115BVJ [Catalytic activity/Vol]37 U/L7-52[facility] HospitalAlbumin [Mass/volume] in Serum or Plasma by Bromocresol green (BCG) dye binding metho Ordered By: Damien Holbrook on 61-52-1241Jttyqts BCG dye [Mass/Vol]4.3 g/dL3.5-5.7 [facility] HospitalAlkaline phosphatase [Enzymatic activity/volume] in Serum or PlasmaOrdered By: Damien Holbrook on 37-59-6649SWJ [Catalytic activity/Vol]51 U/Q61-610KpceysqxsVan Wert County HospitalAspartate aminotransferase [Enzymatic activity/volume] in Serum or PlasmaOrdered By: Damien Holbrook on 66-41-9744ACR [Catalytic activity/Vol]26 U/T49-80SrqciygzaVan Wert County HospitalAutomated erythrocytes count in urine sediment (number/area)Ordered By: Damien Holbrook on 30-02-1245RKU Auto (Urine sed) [#/Area] 3-4 [HPF]0-4FBerger HospitalAutomated leukocytes count in urine sediment (number/area)Ordered By: Damien Holbrook on 98-94-9190MXY Auto (Urine sed) [#/Area]3-4 [HPF]0-4FBerger HospitalAutomated urine hyaline casts count (number/volume)Ordered By: Damien Holbrook on 56-97-6305Vsmhofn casts Auto (U) [#/Vol]20-49 [LPF]0-1FBerger HospitalBasophils Auto (Bld) [#/Vol]Ordered By: Damien Holbrook on 15-25-7818Cdjmvmmdu (Bld) [#/Vol] 0.1 10*3/uL0.0-0.2FBerger HospitalBasophils/100 WBC Auto (Bld) Ordered By: Damien Holbrook on 86-70-3037Wjgtsfidg/100 WBC (Bld)1.1 %.[facility] HospitalBilirubin Test strip Ql (U)Ordered By: Damien Holbrook on 93-82-9254Qdgjtkxli Ql (U)1+NegativeVan Wert County Hospital Bilirubin.total [Mass/volume] in Serum or PlasmaOrdered By: Damien Holbrook on 68-13-8673Jwmnnyxfg [Mass/Vol]1.0 mg/dL0.3-1.0[facility] Calcium [Mass/volume] in Serum or PlasmaOrdered By: Damien Holbrook on 10-11-2022 Calcium [Mass/Vol]9.7 mg/dL8.6-10.3FBerger HospitalCarbon dioxide, total [Moles/volume] in Serum or PlasmaOrdered By: Damien Holbrook on 82-71-9543XF8 [Moles/Vol]27.5 mmol/L21.0-31.0[facility] Chloride [Moles/volume] in Serum or PlasmaOrdered By: Damien Holbrook on 10-11-2022 Chloride [Moles/Vol]101 mmol/N92-063BireimugkVan Wert County HospitalColor Auto (U)Ordered By: Damien Holbrook on 00-93-7977Fahss (U)Dark yellowYellowVan Wert County HospitalCreatinine [Mass/volume] in Serum or PlasmaOrdered By: Damien Holbrook on 78-38-2423Ysorvndwhy [Mass/Vol]1.25 mg/dL0.70-1.30[facility] HospitalEosinophils Auto (Bld) [#/Vol]Ordered By: Damien Holbrook on 96-12-9145Oddrirugedh (Bld) [#/Vol]0.0 10*3/uL0.0-0.45[facility] HospitalEosinophils/100 WBC Auto (Bld)Ordered By: Damien Holbrook on 28-01-7530Tdpprlucaao/100 WBC (Bld)0.4 %.[facility] Erythrocyte distribution width Auto (RBC) [Ratio]Ordered By: Damien Holbrook on 11-07-5710Eztvrsjjamn distribution width (RBC) [Ratio]14.4 %12.0-14.8[facility] HospitalGlobulin Calc (S) [Mass/Vol]Ordered By: Damien Holbrook 53-96-2588Bzcurzyf (S) [Mass/Vol]2.8 g/dLVan Wert County Hospital Glucose [Mass/volume] in Serum or PlasmaOrdered By: Damien Holbrook on 10-11-2022 Glucose [Mass/Vol]128 mg/dC59-930FzbsvuyrdVan Wert County HospitalComment on above:ADA recommended reference rangeRandom Glucose Reference Range is dependent on time and content of last meal. Glucose of more than 200 mg/dL in a nonstressed, ambulatory subject supports the diagnosisof Diabetes Mellitus. Hematocrit Auto (Bld) [Volume fraction]Ordered By: Damien Holbrook on 10-11-2022 Hematocrit (Bld) [Volume fraction]45.3 %38.8-50.0[facility] HospitalHemoglobin [Mass/volume] in BloodOrdered By: Damien Holbrook on 10-11-2022 Hemoglobin (Bld) [Mass/Vol]15.5 g/dL13.0-17.0[facility] Ketones Auto test strip (U) [Mass/Vol]Ordered By: Damien Holbrook on 10-11-2022 Ketones (U) [Mass/Vol]TraceNegativeVan Wert County HospitalLaboratory - CoagulationOrdered By: Damien Holbrook on 12-37-6235OT Coag (PPP) [Time]11.8 s 9.0-12.9[facility] HospitalLeukocytes [#/volume] corrected for nucleated erythrocytes in Blood by Automated counOrdered By: Damien Holbrook on 06-35-4373FIM corrected for nucl RBC Auto (Bld) [#/Vol]11.9 10*3/uL4.1-10.5 [facility] HospitalLymphocytes Auto (Bld) [#/Vol]Ordered By: Damien Holbrook on 93-89-0670Zcwxwtpwmoy (Bld) [#/Vol]1.5 10*3/uL1.00-4.8[facility] HospitalLymphocytes/100 WBC Auto (Bld)Ordered By: Damien Holbrook on 17-22-0592Xyzxxttjato/100 WBC (Bld)13.0 %.[facility] Auto (RBC) [Entitic mass]Ordered By: Damien Holbrook on 43-23-5492SKL (RBC) [Entitic mass]35.3 pg27.5-35.2FMemorial Health SystemHC Auto (RBC) [Mass/Vol]Ordered By: Damien Holbrook on 92-38-1022DIQK (RBC) [Mass/Vol]34.2 g/dL 32.5-35.6FBerger HospitalMCV Auto (RBC) [Entitic vol]Ordered By: Damien Holbrook on 31-91-1017UCA (RBC) [Entitic vol]103.4 fL83.5-101[facility] HospitalMagnesium [Mass/volume] in Serum or PlasmaOrdered By: Damien Holbrook on 07-38-8758Htkisdurl [Mass/Vol]1.6 mg/dL1.9-2.7FBerger HospitalMonocyte distribution width [Entitic volume] in Blood by AutomatedOrdered By: Damien Holbrook on 16-27-7540Tjeacbxi distribution width Auto (Bld) [Entitic vol]21.21 %0.00-20.00[facility] HospitalComment on above:For adults in ED, MDW > 20.0 may be associated with a higher risk of sepsis during the first 12 hrs of hospital admissionMonocytes Auto (Bld) [#/Vol] Ordered By: Damien Holbrook on 86-76-9652Mtrrozqgq (Bld) [#/Vol]1.1 10*3/uL0.0-0.8 [facility] HospitalMonocytes/100 WBC Auto (Bld)Ordered By: Damien Holbrook on 40-15-3267Vtzjgizmf/100 WBC (Bld)9.1 %.[facility] HospitalNatriuretic peptide B [Mass/Vol]Ordered By: Damien Holbrook on 10-11-2022 Natriuretic peptide B (Bld) [Mass/Vol]206.0 pg/mL5-100[facility] HospitalNeutrophils Auto (Bld) [#/Vol]Ordered By: Damien Holbrook on 10-11-2022 Neutrophils (Bld) [#/Vol]9.1 10*3/uL1.8-7.7FBerger Hospital Neutrophils/100 WBC Auto (Bld)Ordered By: Damien Holbrook on 10-11-2022 Neutrophils/100 WBC (Bld)76.4 %.[facility] HospitalNitrite Test strip Ql (U)Ordered By: Damien Holbrook on 37-14-3828Hbgyqri Ql (U)NegativeNegative [facility] HospitalNo Panel InformationOrdered By: Damien Holbrook on 48-74-0035Rgswwwqru GFR (CKD-EPI)> 60.0 mL/MinVan Wert [facility] Hospital Pharmacy Creatinine Clearance (ChemN/AFBerger HospitalNucleated erythrocytes [Presence] in Blood by Automated countOrdered By: Damien Holbrook on 14-46-2230Zfzyygyhx RBC Auto Ql (Bld)0.1 /100{WBC}0-0.5FBerger HospitalPlatelet mean volume Auto (Bld) [Entitic vol]Ordered By: Damien Holbrook on 30-82-4424Eavsgwmn mean volume (Bld) [Entitic vol]8.6 fL6.6-10.1 [facility] HospitalPlatelet poor plasma international normalized ratio (INR) by coagulation assay (relatOrdered By: Damien Holbrook on 59-61-1065ERQ Coag (PPP) [Relative time]1.0 {INR}[facility] HospitalComment on above:INR Therapeutic Range A) Pre- and Peroperative OAT started two weeks before surgery. NOT HIP SURGERY: 1.5 - 2.5 HIP SURGERY: 2 - 3B) Primary and secondary prevention of venous THROMBOSIS: 2 - 3C) Active venous thrombosis, pulmonary embolismand prevention of recurrent venous thrombosis: 2 - 3D) Preve ntion of arterial thromboembolismincluding patients with mechanical heart valves: 3 - 4.5Platelets Auto (Bld) [#/Vol]Ordered By: Damien Holbrook on 13-85-6232Qfgpgiimn (Bld) [#/Vol]197 10*3/qY522-397EvtfuwvlhVan Wert County HospitalPotassium [Moles/volume] in Serum or PlasmaOrdered By: Damien Holbrook on 44-17-8155Siqrqrdij [Moles/Vol]4.0 mmol/L3.5-5.1FBerger HospitalProtein Auto test strip (U) [Mass/Vol]Ordered By: Damien Holbrook on 03-05-6246Ptuuejv (U) [Mass/Vol]100 mg/dLNegativeVan Wert County HospitalProtein [Mass/volume] in Serum or PlasmaOrdered By: Damien Holbrook on 61-57-3424Ycgbrfc [Mass/Vol]7.1 g/dL6.4-8.9[facility] HospitalRBC Auto (Bld) [#/Vol]Ordered By: Damien Holbrook on 10-21-7668VKO (Bld) [#/Vol]4.38 10*6/uL3.90-5.60Holzer Health Systemerum or plasma albumin/globulin mass ratioOrdered By: Damien Holbrook on 10-11-2022 Albumin/Globulin [Mass ratio]1.5 {ratio}Holzer Health Systemerum or plasma anion gap determinationOrdered By: Damien Holbrook on 62-77-5821Szzig gap [Moles/Vol]12.5 mmol/L6.0-15.0Holzer Health Systemodium [Moles/volume] in Serum or PlasmaOrdered By: Damien Holbrook on 42-28-1829Ccaytb [Moles/Vol]137 mmol/C302-460KnyymhrizHolzer Health Systempecific gravity Auto test strip (U) [Rel density]Ordered By: Damien Holbrook on 60-51-7731Edaexemw gravity (U) [Rel density]1.0271.001-1.030[facility] Squamous epithelial cells detection in urine sediment by light microscopyOrdered By: Damien Holbrook on 85-30-6838Pweffhltit cells.squamous LM Ql (Urine sed)0-1 [HPF]0-2FBerger HospitalTroponin I.cardiac [Mass/volume] in Serum or Plasma by Detection limit <= 0.01 ng/Ordered By: Damien Holbrook on 94-22-8893Cgozmjba I.cardiac DL <= 0.01 ng/mL [Mass/Vol]17.7 pg/mL0.0-20.0 [facility] HospitalUrea nitrogen [Mass/volume] in Serum or Plasma Ordered By: Damien Holbrook on 66-24-4389Xmoi nitrogen [Mass/Vol]19 mg/dL7-25 [facility] HospitalUrine bacteria detection by automated method Ordered By: Damien Holbrook on 70-88-7775Phszupoy Auto Ql (U)None seenNone Seen [facility] HospitalUrine clarity by refractometry automatedOrdered By: Damien Holbrook 48-94-0519Yjumgws Refractometry automated (U)CloudyClear [facility] HospitalUrine glucose measurement by automated test strip (mass/volume)Ordered By: Damien Holbrook on 83-45-5660Slnfaml Auto test strip (U) [Mass/Vol]Normal mg/dLNormalVan Wert County HospitalUrine hemoglobin detection by automated test stripOrdered By: Damien Holbrook on 44-27-2109Wcufytpeue Auto test strip Ql (U)NegativeNegativeVan Wert County HospitalUrine leukocyte esterase detection by automated test stripOrdered By: Damien Holbrook on 30-25-3969Sagwdrmim esterase Auto test strip Ql (U)1+ NegativeVan Wert County HospitalUrobilinogen Auto test strip (U) [Mass/Vol]Ordered By: Damien Holbrook on 93-79-9175Himdmegbvrla (U) [Mass/Vol] Normal mg/dLNormalVan Wert County HospitalWBC Auto (Bld) [#/Vol]Ordered By: Damien Holbrook on 41-15-9080SYA (Bld) [#/Vol]11.9 10*3/uL4.1-10.5FBerger HospitalpH Auto test strip (U)Ordered By: Daimen Holbrook on 94-04-6286dW (U)5.5 [pH]5.0-9.0[facility] HospitalAutomated erythrocytes count in urine sediment (number/area)Ordered By: Sarai Georges on 64-04-0514MMR Auto (Urine sed) [#/Area]1-2 [HPF]0-4FBerger HospitalAutomated leukocytes count in urine sediment (number/area)Ordered By: Sarai Georges on 34-65-8264CTK Auto (Urine sed) [#/Area]None seen [HPF]0-4 [facility] HospitalBasophils Auto (Bld) [#/Vol]Ordered By: Sarai Georges on 32-67-1151Jzomoovzb (Bld) [#/Vol]0.1 10*3/uL0.0-0.2FBerger HospitalBasophils/100 WBC Auto (Bld)Ordered By: Sarai Georges on 16-22-3304Gjrajcfha/100 WBC (Bld)0.6 %.[facility] Bilirubin Auto test strip Ql (U)Ordered By: Sarai Georges on 10-02-2022 Bilirubin Ql (U)NegativeNegativeVan Wert County HospitalC reactive protein [Mass/volume] in Serum or PlasmaOrdered By: Sarai Georges on 10-02-2022 CRP [Mass/Vol]0.5 mg/dL0.0-0.5FBerger HospitalCreatine kinase [Enzymatic activity/volume] in Serum or PlasmaOrdered By: Sarai Georges on 15-92-1943PH [Catalytic activity/Vol]52 U/K17-856PcvmmmvglVan Wert County HospitalCreatinine [Mass/volume] in Serum or PlasmaOrdered By: Sarai Georges on 68-88-1180Lobgtsepjt [Mass/Vol]1.00 mg/dL0.70-1.30[facility] HospitalDNA double strand Ab [Units/volume] in SerumOrdered By: Sarai Georges on 76-49-4591TKR double strand Ab Qn (S)[IU]/mL0-9[facility] Comment on above:Negative <5 Equivocal 5 - 9 Positive >9Performed at: [facility] Lab[address] [id number] Director: Lucas Cooper PhD, Phone: [phone] Auto (Bld) [#/Vol]Ordered By: Sarai Georges on 96-08-0013Vogtgkfjgon (Bld) [#/Vol]0.0 10*3/uL0.0-0.45[facility] HospitalEosinophils/100 WBC Auto (Bld)Ordered By: Sarai Georges on 60-00-3601Ekqsdhnyvwd/100 WBC (Bld)0.5 %.[facility] Erythrocyte distribution width Auto (RBC) [Ratio]Ordered By: Sarai Georges on 99-30-7018Dyzazyaiawy distribution width (RBC) [Ratio]14.9 %12.0-14.8[facility] HospitalErythrocyte sedimentation rate by Photometric method Ordered By: Sarai Georges on 67-49-6578FAK Photometric method (Bld) [Velocity] 16 mm/hr0-19[facility] HospitalHematocrit Auto (Bld) [Volume fraction]Ordered By: Sarai Georges on 58-82-0030Aqcqypensn (Bld) [Volume fraction]41.2 %38.8-50.0[facility] HospitalHemoglobin [Mass/volume] in BloodOrdered By: Sarai Georges on 73-26-6843Vflicwjtdj (Bld) [Mass/Vol]14.0 g/dL13.0-17.0[facility] HospitalKetones Auto test strip (U) [Mass/Vol]Ordered By: Sarai Georges on 65-52-7511Nsbcahr (U) [Mass/Vol]NegativeNegativeVan Wert County HospitalLaboratory - UrinalysisOrdered By: Sarai Georges on 28-09-4339Qrvmlpn casts LM Ql (Urine sed)0-8 [LPF]0-8[facility] HospitalLeukocytes [#/volume] corrected for nucleated erythrocytes in Blood by Automated counOrdered By: Sarai Georges on 49-45-6007KVY corrected for nucl RBC Auto (Bld) [#/Vol]9.5 10*3/uL4.1-10.5 [facility] HospitalLymphocytes Auto (Bld) [#/Vol]Ordered By: Sarai Georges on 26-31-0764Qcbnurbfnmg (Bld) [#/Vol]1.7 10*3/uL1.00-4.8 [facility] HospitalLymphocytes/100 WBC Auto (Bld)Ordered By: Sarai Georges on 50-62-4876Ixpnyjihygb/100 WBC (Bld)18.5 %.[facility] CenterH Auto (RBC) [Entitic mass]Ordered By: Sarai Georges on 68-94-6864EVB (RBC) [Entitic mass]35.4 pg27.5-35.2FBerger HospitalMCHC Auto (RBC) [Mass/Vol]Ordered By: Sarai Georges on 41-68-2474ONCF (RBC) [Mass/Vol]33.9 g/dL32.5-35.6FBerger HospitalMCV Auto (RBC) [Entitic vol]Ordered By: Sarai Georges on 46-86-8548FXG (RBC) [Entitic vol]104.5 fL83.5-101[facility] HospitalMonocytes Auto (Bld) [#/Vol]Ordered By: Sarai Georges on 96-99-3122Imtpshyom (Bld) [#/Vol]0.7 10*3/uL0.0-0.8[facility] HospitalMonocytes/100 WBC Auto (Bld) Ordered By: Sarai Georges on 47-68-3761Cbcqvvjfa/100 WBC (Bld)7.2 %.[facility] HospitalNeutrophils Auto (Bld) [#/Vol]Ordered By: Sarai Georges on 52-05-6482Deiwmkmaolx (Bld) [#/Vol]6.9 10*3/uL1.8-7.7FBerger HospitalNeutrophils/100 WBC Auto (Bld)Ordered By: Sarai Georges on 96-36-9431Sbgnxbsieag/100 WBC (Bld)73.2 %.[facility] HospitalNo Panel InformationOrdered By: Sarai Georges on 01-82-8912Ewbhofsre GFR (CKD-EPI) > 60.0 mL/MinVan Wert County HospitalPharmacy Creatinine Clearance (ChemN/AFBerger HospitalTotal Complement (CH50)>60 U/mL>41 [facility] HospitalComment on above:Age Male Female 1 - 30 days Not Estab. Not Estab. 31 days - 6 months >32 >20 7 months - 17 years >39 >39 >17 years >41 >41 NOTE: The adult ( >17 years ) reference intervalrange is used to flag abnormals on this report. If the patient is 17 years old or younger, use the table above to determine out of range values.Performed at: [facility] [place] [id number] Director: Lucas Cooper PhD, Phone: [phone] erythrocytes [Presence] in Blood by Automated count Ordered By: Sarai Georges on 07-08-5810Bspduixgb RBC Auto Ql (Bld)0.1 /100{WBC} 0-0.5FBerger HospitalPlatelet mean volume Auto (Bld) [Entitic vol]Ordered By: Sarai Georges on 37-15-9622Xevmleju mean volume (Bld) [Entitic vol]8.9 fL6.6-10.1FBerger HospitalPlatelets Auto (Bld) [#/Vol] Ordered By: Sarai Georges on 92-85-8928Kqkljdblh (Bld) [#/Vol]201 10*3/uL 150-450[facility] HospitalProtein Auto test strip (U) [Mass/Vol] Ordered By: Sarai Georges on 75-41-4556Hmcnyxv (U) [Mass/Vol]NegativeNegative [facility] HospitalRBC Auto (Bld) [#/Vol]Ordered By: Sarai Georges on 59-14-4372VZV (Bld) [#/Vol]3.94 10*6/uL3.90-5.60[facility] Systemerum Corona extractable nuclear antigen (OPAL) antibody assay (units/volume)Ordered By: Sarai Georges on 49-66-7199Blskf extractable nuclear Ab Qn (S)<0.2 AI0.0-0.9[facility] Health Systemerum or plasma complement C3 measurement (mass/volume)Ordered By: Sarai Georges on 10-02-2022 Complement C3 [Mass/Vol]147 mg/aO50-162MvsywcfkaVan Wert County HospitalComment on above:Performed at: [employer] [facility] [place] [id number] Director: Lucas Cooper PhD, Phone: [phone] or plasma complement C4 measurement (mass/volume)Ordered By: Sarai Georges on 10-02-2022 Complement C4 [Mass/Vol]29 mg/yG98-51XsbeeksybHolzer Health Systemquamous epithelial cells detection in urine sediment by light microscopyOrdered By: Sarai Georges on 07-63-5864Tktsisdvbj cells.squamous LM Ql (Urine sed)None seen [HPF]0-2FBerger HospitalUrine appearanceOrdered By: Sarai Georges on 35-31-5493Lbsbxpdrbc (U)ClearCleMemorial Health System [facility] Urine bacteria detection by automated methodOrdered By: Sarai Georges on 57-60-5954Quijlngp Auto Ql (U)None seenNone SeenVan Wert County HospitalUrine colorOrdered By: Sarai Georges on 67-99-9519Nwmyz (U)YellowYellow [facility] HospitalUrine glucose measurement by automated test strip (mass/volume)Ordered By: Sarai Georges on 54-10-0022Htwgcoj Auto test strip (U) [Mass/Vol]Normal mg/dLNormalVan Wert County HospitalUrine hemoglobin detection by automated test stripOrdered By: Sarai Georges on 18-02-7554Ujwvmfahgl Auto test strip Ql (U)NegativeNegativeVan Wert County HospitalUrine leukocyte esterase detection by automated test stripOrdered By: Sarai Georges on 44-11-9672Vzjpqyssa esterase Auto test strip Ql (U) NegativeNegMcKitrick HospitalUrine nitrite detection by automated test stripOrdered By: Sarai Georges on 99-58-8805Srhrnzy Auto test strip Ql (U)NegativeNegMcKitrick HospitalUrobilinogen Auto test strip (U) [Mass/Vol]Ordered By: Sarai Georges on 79-68-5902Slisljryxsxu (U) [Mass/Vol]Normal mg/dLNormalVan Wert County HospitalWBC Auto (Bld) [#/Vol]Ordered By: Sarai Georges on 69-99-4459WVM (Bld) [#/Vol]9.5 10*3/uL 4.1-10.5FBerger HospitalpH Auto test strip (U)Ordered By: Sarai Georges on 42-17-4056uR (U)1.015 [pH]1.001-1.030[facility] HospitalpH (U)6.5 [pH]5.0-9.0[facility] HospitalRETICULOCYTE on 69-40-7725TOYIQ6.90 %Critically high0.60-3.10The [facility]mount HospitalComment on above:Performed By: #### RETIC #### [facility] [address] [place] [address] Dr. Tracy Eldridge B12 AND FOLATEon 00-23-0021Atqetuauk (Vitamin B12) [Mass/Vol] 436.0 pg/aSMseeoj032.0-986.0The [facility] HospitalComment on above:Performed By: #### B12FOL #### [facility] [address] [address] [address] Tracy HubbardFOLATE17.10 ng/mLNormal8.60-58.90The [facility]mount HospitalComment on above:Performed By: #### B12FOL #### [facility] [address] [place] [address] Dr. Tracy Potter AUTO DIFFon 15-23-4960GDPY #0.1 103/ulNormal0.0-0.1The [facility] HospitalComment on above:Performed By: #### CBC #### [facility] [address] [place] [address] Dr. Tracy HubbardBasophils/100 WBC (Bld)0.7 %Normal0.2-2.0[facility] Comment on above:Performed By: #### CBC #### [facility] [address] [place] [address] Dr. Tracy Hou #0.1 103/ulNormal0.0-0.7The [facility] HospitalComment on above: Performed By: #### CBC #### [facility] [address] [place] [address] Dr. Tracy Meehanosinophils/100 WBC (Bld)1.7 %Normal0.9-7.0[facility] Comment on above:Performed By: #### CBC #### [facility] [address] [place] [address] Dr. Tracy Meehanrythrocyte distribution width (RBC) [Ratio]12.8 %Ahmabt33.0-15.0 The [facility] HospitalComment on above:Performed By: #### CBC #### [facility] [address] [place] [address] Dr. Tracy Mckayatocrit (Bld) [Volume fraction]44.6 %Xxkjwa66.0-54.0The [facility] HospitalComment on above:Performed By: #### CBC #### [facility] [address] [place] [address] Dr. Tracy HubbardHemoglobin (Bld) [Mass/Vol]15.5 g/dKJakrcv70.0-18.0The [facility] HospitalComment on above:Performed By: #### CBC #### [facility] [address] [place] [address] Dr. Tracy Weston #0.03 10e3/ulNormal0.00-0.03The [facility] HospitalComment on above:Performed By: #### CBC #### [facility] [address] [place] [address] Dr. Tracy Weston %0.4 %Normal0.0-0.5The [facility] HospitalComment on above: Performed By: #### CBC #### [facility] [address] [place] [address] Dr. Tracy Arellano #1.7 103/ulNormal1.2-3.8The [facility] HospitalComment on above:Performed By: #### CBC #### [facility] [address] [place] [address] Dr. Tracy Bowershocytes/100 WBC (Bld)24.8 %Zlvkbq28.5-60.0The [facility] HospitalComment on above:Performed By: #### CBC #### [facility] [address] [place] [address] Dr. Tracy Ba DIFF REQNONormalThe Marymount HospitalComment on above: Performed By: #### CBC #### [facility] [address] [place] [address] Dr. Tracy Landeros (RBC) [Entitic mass]35.7 pgCritically high25.9-34.0The [facility] HospitalComment on above:Performed By: #### CBC #### [facility] [address] [place] [address] Dr. Tracy Freedman (RBC) [Mass/Vol]34.8 g/fCVmmwsk81.9-35.2The [facility] HospitalComment on above:Performed By: #### CBC #### [facility] [address] [place] [address] Dr. Tracy Freedman (RBC) [Entitic vol]102.8 fLCritically high80.0-94.0The [facility] HospitalComment on above:Performed By: #### CBC #### [facility] [address] [place] [address] Dr. Tracy Bone #0.7 103/ulNormal0.3-0.8The [facility] HospitalComment on above:Performed By: #### CBC #### [facility] [address] [place] [address] Dr. Tracy Tamayoocytes/100 WBC (Bld)9.8 %Normal1.7-12.0[facility] Comment on above:Performed By: #### CBC #### [facility] [address] [place] [address] Dr. Tracy Randhawa #4.4 103/ulNormal1.4-6.5The [facility] HospitalComment on above:Performed By: #### CBC #### [facility] [address] [place] [address] Dr. Tracy Gunterutrophils/100 WBC (Bld)62.6 %Dfzala26.0-75.0The [facility] HospitalComment on above:Performed By: #### CBC #### [facility] [address] [place] [address] Dr. Tracy Archerlet mean volume (Bld) [Entitic vol]10.3 fLNormal9.5-13.5The [facility] HospitalComment on above:Performed By: #### CBC #### [facility] [address] [place] [address] Dr. Tracy HubbardPLT182 103/mtAiwqbt721-710Oir [facility]mount HospitalComment on above: Performed By: #### CBC #### [facility] [address] [place] [address] Dr. Tracy HubbardRBC4.34 106/ulCritically low4.70-6.10The [facility] HospitalComment on above:Performed By: #### CBC #### [facility] [address] [place] [address] Dr. Tracy HubbardWBC7.0 103/ulNormal4.0-11.0The [facility] HospitalComment on above: Performed By: #### CBC #### [facility] [address] [place] [address] Dr. Tracy Rashid 25-71-6799RR [Catalytic activity/Vol]84 U/QJpswgi05-542Wna [facility] HospitalComment on above:Performed By: #### CMP, CRP, TSH, LIPID, CK #### [facility] [address] [address] [address] Tracy Hunter 93-81-9657ZXN [Mass/Vol]mg/LNormal<=1.0The [facility] Memorial Hospitalment on above:Performed By: #### CMP, CRP, TSH, LIPID, CK #### [facility] [address] [address] [address] Tracy HubbardLIPID PROFILEon 51-16-3492ZJIN-HDL RATIO NORMSEE BELOWNoOhioHealth Mansfield HospitalComment on above:Result Comment: 3.3 - 4.4 LOW RISK 4.4 - 7.1 AVERAGE RISK 7.1 - 11.0 MODERATE RISK >11.0 HIGH RISKPerformed By: #### CMP, CRP, TSH, LIPID, CK #### [facility] [address] [place] [address] Dr. Tracy Laraesterol [Mass/Vol]145 mg/dLNormal<=200[facility] Comment on above:Performed By: #### CMP, CRP, TSH, LIPID, CK #### [facility] [address] [place] [address] Dr. Tracy Laraesterol in HDL [Mass/Vol]45 mg/tZTslhlf92-50Stj [facility] on above:Performed By: #### CMP, CRP, TSH, LIPID, CK #### [facility] [address] [place] [address] Dr. Tracy Laraesterol in LDL [Mass/Vol]64.4 mg/dLNormWooster Community HospitalComment on above:Performed By: #### CMP, CRP, TSH, LIPID, CK #### [facility] [address] [place] [address] Dr. Tracy Cronin.total/Cholesterol in HDL [Mass ratio]3.2 {ratio} NormalThe [facility]field Hospital on above:Performed By: #### CMP, CRP, TSH, LIPID, CK #### [facility] [address] [place] [address] Dr. Tracy Vega NORMAL> or = 60 mg/dl - LOW CARDIOVASCULAR RISK <40 mg/dl - HIGH CARDIOVASCULAR RISKMercy Health Anderson HospitalComment on above:Performed By: #### CMP, CRP, TSH, LIPID, CK #### [facility] [address] [place] [address] Dr. Tracy HubbardLDL CALC NORMALSEE BELOWMercy Health Anderson HospitalComascension borgess lee hospital on above:Result Comment: <100 mg/dl OPTIMAL 100 - 129 mg/dl NEAR OR ABOVE OPTIMAL 130 - 159 mg/dl BORDERLINE HIGH 160 - 189 mg/dl HIGH >190 mg/dl VERY HIGH Performed By: #### CMP, CRP, TSH, LIPID, CK #### [facility] [address] [place] [address] Dr. Tracy HubbardTriglyceride [Mass/Vol]178 mg/dLCritically high<=150The [facility] on above:Performed By: #### CMP, CRP, TSH, LIPID, CK #### [facility] [address] [place] [address] Dr. Tracy HubbardVLDL CALC35.6 mg/dLNoOhioHealth Mansfield HospitalComascension borgess lee hospital on above: Performed By: #### CMP, CRP, TSH, LIPID, CK #### [facility] [address] [place] [address] Dr. Tracy HubbardPROChristina 14(COMP METB)on 54-69-7641Ajeytzl [Mass/Vol]4.1 g/dLNormal 3.4-5.0[facility] on above:Performed By: #### CMP, CRP, TSH, LIPID, CK #### [facility] [address] [place] [address] Dr. Tracy HubbardAlbumin/Globulin [Mass ratio]1.2 {ratio}NormalThe [facility] on above:Performed By: #### CMP, CRP, TSH, LIPID, CK #### [facility] [address] [place] [address] Dr. Tracy Hernández [Catalytic activity/Vol]66 U/BHpdnjj24-941Wlx [facility] on above:Performed By: #### CMP, CRP, TSH, LIPID, CK #### [facility] [address] [place] [address] Dr. Tracy Baird [Catalytic activity/Vol]44 U/ZOgenkx92-36Rzd [facility] HospitalComment on above:Performed By: #### CMP, CRP, TSH, LIPID, CK #### [facility] [address] [address] [address] Tracy Hendersonon gap [Moles/Vol]12.3 mmol/LNormalKindred Healthcare Comment on above:Performed By: #### CMP, CRP, TSH, LIPID, CK #### [facility] [address] [address] [address] Tracy HubbardAST [Catalytic activity/Vol]26 U/AKootml15-38Yhk [facility] HospitalComment on above:Performed By: #### CMP, CRP, TSH, LIPID, CK #### [facility] [address] [address] [address] Tracy HubbardBilirubin [Mass/Vol]0.8 mg/dLNormal0.2-1.0[facility] Comment on above:Performed By: #### CMP, CRP, TSH, LIPID, CK #### [facility] [address] [place] [address] Dr. Tracy HubbardCalcium [Mass/Vol]8.9 mg/dLNormal8.5-10.1[facility] Comment on above:Performed By: #### CMP, CRP, TSH, LIPID, CK #### [facility] [address] [address] [address] Tracy HubbardChloride [Moles/Vol]103 mmol/BWmerrd66-082Tws [facility] Comment on above:Performed By: #### CMP, CRP, TSH, LIPID, CK #### [facility] [address] [address] [address] Tracy HubbardCO2 [Moles/Vol]27.0 mmol/HBhlzdw08.0-32.0[facility] Comment on above:Performed By: #### CMP, CRP, TSH, LIPID, CK #### [facility] [address] [address] [address] Tracy HubbardCreatinine [Mass/Vol]1.04 mg/dLNormal0.70-1.30The [facility] HospitalComment on above:Performed By: #### CMP, CRP, TSH, LIPID, CK #### [facility] [address] [address] [address] Tracy MeehanGFR-AF NEPALESE>60Normal>=60The [facility] HospitalComment on above:Performed By: #### CMP, CRP, TSH, LIPID, CK #### [facility] [address] [address] [address] Tracy MeehanGFR-NON AF NEPALESE>60Normal>=60The [facility] HospitalComment on above:Performed By: #### CMP, CRP, TSH, LIPID, CK #### [facility] [address] [address] [address] Tracy HubbardGlobulin (S) [Mass/Vol]3.4 g/dLNormalThe [facility] HospitalComment on above:Performed By: #### CMP, CRP, TSH, LIPID, CK #### [facility] [address] [place] [address] Dr. Tracy HubbardGlucose [Mass/Vol]124 mg/dLCritically aeav38-631Phg [facility] HospitalComment on above:Performed By: #### CMP, CRP, TSH, LIPID, CK #### [facility] [address] [address] [address] Tracy HubbardPotassium [Moles/Vol]4.3 mmol/LNormal3.5-5.1[facility] Comment on above:Performed By: #### CMP, CRP, TSH, LIPID, CK #### [facility] [address] [address] [address] Tracy HubbardProtein [Mass/Vol]7.5 g/dLNormal6.4-8.2[facility] Comment on above:Performed By: #### CMP, CRP, TSH, LIPID, CK #### [facility] [address] [address] [address] Tracy HubbardSodium [Moles/Vol]138 mmol/OXjmdwj999-903Sby [facility] Comment on above:Performed By: #### CMP, CRP, TSH, LIPID, CK #### [facility] [address] [address] [address] Tracy Bazan nitrogen [Mass/Vol]16.0 mg/dLNormal7.0-18.0The [facility] HospitalComment on above:Performed By: #### CMP, CRP, TSH, LIPID, CK #### [facility] [address] [address] [address] Tracy Bazan nitrogen/Creatinine [Mass ratio]15.4 mg/mgNormalThe [facility] HospitalComment on above:Performed By: #### CMP, CRP, TSH, LIPID, CK #### [facility] [address] [address] [address] Tracy Olivera RATE WESTERGRENon 47-29-2915ZMM RATE9 mm/hrNormal<=20The [facility] HospitalComment on above:Performed By: #### SEDR #### [facility] [address] [address] [address] Tracy Mai 93-55-7249KZN4.856 uIU/mLCritically high0.358-3.740The [facility] HospitalComment on above:Performed By: #### CMP, CRP, TSH, LIPID, CK #### [facility] [address] [place], [place] [address] Dr. Tracy HubbardXR hip RT min 2V(w/wo pelvis)*on 47-21-9940VA hip RT min 2V(w/wo pelvis)*[facility] [employer] Other XR hip RT min 2V(w/wo pelvis)*[facility] [employer] Other XR hip RT min 2V(w/wo pelvis)*[address] [place] [address] [employer] Other XR hip RT min 2V(w/wo pelvis)*[address] [employer] Other XR hip RT min 2V(w/wo pelvis)*[facility] [employer] Other XR hip RT min 2V(w/wo pelvis)*SignedBig Creek [employer] Other XR hip RT min 2V(w/wo pelvis)*Patient: Esme Steven MR#: [id number] [employer] Other XR hip RT min 2V(w/wo pelvis)*[address] [employer] Other XR hip RT min 2V(w/wo pelvis)*: 1960 Acct:[id number] [employer] Other XR hip RT min 2V(w/wo pelvis)*Age/Sex: 61 / M ADM Date: 04/12/22[place] [employer] Other XR hip RT min 2V(w/wo pelvis)*Loc: [facility] Room: Type: [facility] [employer] Other XR hip RT min 2V(w/wo pelvis)*Attending Dr: Jonathan Samano [facility] Other XR hip RT min 2V(w/wo pelvis)*Copies to: Jonathan Samano [employer] Other XR hip RT min 2V(w/wo pelvis)*Ordering Provider: Jonathan Samano MDBig Creek [facility] Other XR hip RT min 2V(w/wo pelvis)*Date of Service: 04/12/22[place] [employer] Other XR hip RT min 2V(w/wo pelvis)* XR/XR hip RT min 2V(w/wo pelvis)*: Right hip painBig Creek [employer] Other XR hip RT min 2V(w/wo pelvis)*RIGHT HIP - 2 views: [place] [employer] Other XR hip RT min 2V(w/wo pelvis)*CLINICAL HISTORY: Low back pain that radiates to right hip for years. No known injury.[employer] Other XR hip RT min 2V(w/wo pelvis)*COMPARISON: [facility] Other XR hip RT min 2V(w/wo pelvis)*FINDINGS: Moderate degenerative changes of the right hip without acute bony process. Left hipBig Creek [employer] Other XR hip RT min 2V(w/wo pelvis)*prosthesis is in place. [employer] Other XR hip RT min 2V(w/wo pelvis)* XR/XR hip RT min 2V(w/wo pelvis)*[employer] Other XR hip RT min 2V(w/wo pelvis)*IMPRESSION:[employer] Other XR hip RT min 2V(w/wo pelvis)*MODERATE DEGENERATIVE CHANGES OF THE RIGHT HIP WITHOUT ACUTE BONY PROCESS..[employer] Other XR hip RT min 2V(w/wo pelvis)*Impression dictated by: Alex Castro Jr., D.O.04/12/2022 12:57 [facility] [employer] Other XR hip RT min 2V(w/wo pelvis)*Dictation Location: [address] [employer] Other XR hip RT min 2V(w/wo pelvis)*Transcribed By: GWEN 04/12/22 [facility] Other XR hip RT min 2V(w/wo pelvis)*Dictated By: Alex Castro Jr, DO 04/12/22 [facility] Other XR hip RT min 2V(w/wo pelvis)*Signed By:[employer] Other XR hip RT min 2V(w/wo pelvis)*04/12/22 [facility] Other XR hand RT min 3V*on 72-29-6487HM hand RT min 3V* [facility] [employer] Other XR hand RT min 3V*[facility] Main [facility] [employer] Other XR hand RT min 3V*[employer] [facility] [employer] Other XR hand RT min 3V*DILIA Abdi [address]IvglnSkagit [facility] Hospital [employer] Other XR hand RT min 3V*[facility] [employer] Other XR hand RT min 3V*[facility] Other XR hand RT min 3V*Patient: Esme Steven MR#: [id number] [employer] Other XR hand RT min 3V*[address] [place] [address] [employer] Other XR hand RT min 3V*: 1960 Acct:[id number] [employer] Other XR hand RT min 3V*Age/Sex: 61 / M ADM Date: 02/15/22 [place] [employer] Other XR hand RT min 3V*Loc: [facility] Room: Type: [facility] [employer] Other XR hand RT min 3V*Attending Dr: Chio Nichole MD [place] [employer] Other XR hand RT min 3V*Copies to: Chio Nichole MDBig Creek [facility] Other XR hand RT min 3V*Ordering Provider: Chio Nichole MDBig Creek [facility] Other XR hand RT min 3V*Date of Service: 02/15/22[place] [employer] Other XR hand RT min 3V* XR/XR hand RT min 3V*: Right hand painNosaint john's regional health center CAP[facility] Other XR hand RT min 3V*4 viewsRIGHT hand plain filmBig Creek [employer] Other XR hand RT min 3V*COMPARISON:05/23/21[place] [employer] Other XR hand RT min 3V*HISTORY:3rd metacarpal phalangeal joint pain.[place] [facility] Other XR hand RT min 3V*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 Mild interphalangeal degenerative changes. 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 [facility] Other XR hand RT min 3V*Dictation Location: [address] [employer] Other XR hand RT min 3V*Transcribed By: GWEN 02/15/[address] [place] [address] [employer] Other XR hand RT min 3V*Dictated By: Matt Ferrell DO 02/15/[address] [place] [address] [employer]PT[employer] Other XR hand RT min 3V*Signed By:[employer] Other XR hand RT min 3V*02/15/[address] [place] [address] [employer]PTURE Other XR hip LT min 2V(w/wo pelvis)*on 01-96-1211BS hip LT min 2V(w/wo pelvis)*[facility] [employer] Other XR hip LT min 2V(w/wo pelvis)*[facility] Main [facility] [employer] Other XR hip LT min 2V(w/wo pelvis)*[address] [facility] [employer] Other XR hip LT min 2V(w/wo pelvis)*[place] [address] [employer] Other XR hip LT min 2V(w/wo pelvis)*XRay ReportBig Creek [facility] Other XR hip LT min 2V(w/wo pelvis)*[facility] [employer] Other XR hip LT min 2V(w/wo pelvis)*Patient: Esme Steven MR#: [id number] [employer] Other XR hip LT min 2V(w/wo pelvis)*[address] [employer] Other XR hip LT min 2V(w/wo pelvis)*: 1960 Acct:[id number] [employer] Other XR hip LT min 2V(w/wo pelvis)*Age/Sex: 60 / M ADM Date: 09/28/21[place] [employer] Other XR hip LT min 2V(w/wo pelvis)*Loc: [facility] Room: Type: [facility] Other XR hip LT min 2V(w/wo pelvis)*Attending Dr: Sarai Mendez II, MDBig Creek [facility] Other XR hip LT min 2V(w/wo pelvis)*Copies to: Sarai Mendez MDBig Creek [employer] Other XR hip LT min 2V(w/wo pelvis)*Ordering Provider: Sarai Mendez MDBig Creek [facility] Other XR hip LT min 2V(w/wo pelvis)*Date of Service: 09/28/21[place] [employer] Other XR hip LT min 2V(w/wo pelvis)* XR/XR hip LT min 2V(w/wo pelvis)*: S/P total left hip arthroplasty [employer] Other XR hip LT min 2V(w/wo pelvis)*2 views LEFT hip single view pelvisplain filmBig Creek [employer] Other XR hip LT min 2V(w/wo pelvis)*COMPARISON:08/17/21[place] [employer] Other XR hip LT min 2V(w/wo pelvis)*HISTORY:Status post LEFT total hip arthroplastyBig Creek [employer] Other XR hip LT min 2V(w/wo pelvis)*No fracture, dislocation or focal soft tissue abnormality seen.No hardware failure or looseningBig Creek [employer] Other XR hip LT min 2V(w/wo pelvis)*identified.[employer] Other XR hip LT min 2V(w/wo pelvis)* XR/XR hip LT min 2V(w/wo pelvis)*[employer] Other XR hip LT min 2V(w/wo pelvis)*IMPRESSION:Stable LEFT hip arthroplasty.[employer] Other XR hip LT min 2V(w/wo pelvis)*Impression dictated by: Matt Ferrell M.D.09/28/2021 1:11 [facility] [employer] Other XR hip LT min 2V(w/wo pelvis)*Dictation Location: [id number] [employer] Other XR hip LT min 2V(w/wo pelvis)*Transcribed By: GWEN 09/28/[address] [place] [address] [employer] Other XR hip LT min 2V(w/wo pelvis)*Dictated By: Matt Ferrell DO 09/28/21 [address] [facility] Other XR hip LT min 2V(w/wo pelvis)*Signed By:[employer] Other xr hip LT min 2V(w/wo pelvis)*09/28/21 1311[facility] Other Laboratory - Hematology and Cell countson 06-02-2009 Lymphocytes/100 WBC (Bld)14 %Wilson HealthNeutrophils/100 WBC (Bld)12 %0 - 25 %Wilson HealthNo Panel Informationon 61-60-6206Yqlqdvi, SFSlightly turbid AbnormalCLEARCleveland ClinicColor, SFSlightly bloodyAbnormalYELWilson Health Macro%, SF26 %Deerton ClinicMono%, SF24 %Wilson HealthRBC, [id number] /uL Wilson HealthReac%, SF6 %[facility] ClinicSite, SFUnknownCleveland ClinicSlide Number [id number] ClinicSupernatant Clarity, SFUnable to assay. Quantity not sufficient.AbnormalCLEARCleveland ClinicSupernatant Color, SFUnable to assay. Quantity not sufficient.AbnormalYELDunlap Memorial Hospitalynovial CL%18 % [facility] Memorial Hospitalynovial CommentCount may be inaccurate due to Clumped on chamber Cellular disintegrationDunlap Memorial Hospitalynovial Pathologist InterpretationTest Not IndicatedCleSelect Medical OhioHealth Rehabilitation Hospital - DublinTotal Nucleated Cells, SF200 /uLWilson Health Vital Signs Date TimeVital SignValuePerforming [id number] 08:08-0400 Diastolic blood ypstnxzc71 mm[Hg]Diogo Macias MD Work Phone: [facility]10-24-2025 08:08-0400 Heart rate69 /Sisi Macias MD Work Phone: [facility]10-24-2025 08:08-0400 Respiratory rate17 /minDiogo Macias MD Work Phone: [facility]10-24-2025 08:08-0400 SaO2% (BldA) [Mass fraction]97 %Diogo Macias MD Work Phone: [phone] [place], [place] 2215110-24-2025 08:08-0400 Systolic blood rdhxsbsa883 mm[Hg]Diogo Macias MD Work Phone: 1(216)[address]10-24-2025 02:15-0400 Body gtdyuunfanl46.01 [degF]Diogo Macias MD Work Phone: 1(216)[address]10-24-2025 01:41-0400 Body wcemgu672.8 Sandra Macias MD Work Phone: 1(216)[address]10-24-2025 01:41-0400 Body mass index (BMI) [Ratio]30.42 kg/m2Diogo Macias MD Work Phone: [phone])[address]10-24-2025 01:41-0400 Body shhjyi66.16 kgDiogo Macias MD Work Phone: [phone])[address]10-23-2025 22:39-0400 Diastolic blood ptakysih99 mm[Hg]Vitaliy Ball DO Work Phone: 1(244)526-04[facility]10-23-2025 22:39-0400 Heart rate77 /minBenjamin Ball DO Work Phone: 1(187)[phone]10-23-2025 22:39-0400 Respiratory rate20 /minBenjamin Ball DO Work Phone: 1(309)218-74[facility]10-23-2025 22:39-0400 SaO2% (BldA) [Mass fraction]96 %Vitaliy Ball DO Work Phone: 1(684)[phone]10-23-2025 22:39-0400 Systolic blood xhxafjrf830 mm[Hg]Vitaliy Ball DO Work Phone: 1(513)[phone]10-23-2025 17:41-0400 Body ntblec509.8 cmBenjamin Ball DO Work Phone: 1(419)[address]10-23-2025 17:41-0400 Body lzvcwikiziz99.2 [degF]Vitaliy Ball DO Work Phone: 1(419)[address] [place], [place] 2509010-23-2025 17:41-0400 Body skqeem24.95 kgBenjamin Ball DO Work Phone: 1(419)[address] [place], [place] 2509010-21-2025 21:40-0400 Body fahyft663.8 cmBenjamin Ball DO Work Phone: 1(419)[address] [place], [place] 2509010-21-2025 21:40-0400 Body pcdkof66.06 kgBenjamin Ball DO Work Phone: 1(419)[address] [place], [place] 2509010-06-2025 14:31-0400 Body vrbhky638.07 cmBenjamin Ball DO Work Phone: 1(419)[address] [place], [place] 2509010-06-2025 14:31-0400 Body mass index (BMI) [Ratio]30.4 kg/a3Gsxctaxe Ball DO Work Phone: 1(419)[address] [place], [place] 2509010-06-2025 14:31-0400 Body liavak15.74 kgBenjamin Ball DO Work Phone: 1(419)[address] [place], [place] 2509010-06-2025 14:31-0400 Diastolic blood mm[Hg]Vitaliy Ball DO Work Phone: 1(419)[address] [place], [place] 2509010-06-2025 14:31-0400 Heart rate80 /minBenjamin Ball DO Work Phone: 1(419)[address] [place], [place] 2509010-06-2025 14:31-0400 Respiratory rate12 /minBenjamin Ball DO Work Phone: 1(419)[address] [place], [place] 2509010-06-2025 14:31-0400 Systolic blood vlvmrayk205 mm[Hg]Vitaliy Ball DO Work Phone: 1(419)[address] [place], [place] 2509010-01-2025 13:30-0400 Body nlyavx059.07 cmBenjamin Ball DO Work Phone: 1(419)[address] [place], [place] 2509010-01-2025 13:30-0400 Body mass index (BMI) [Ratio]31.3 kg/l5Omunhpxp Ball DO Work Phone: 1(317)568-[address] [place], [place] 9749710-01-2025 13:30-0400 Body yzwrrn032.41 kgBenjamin Ball DO Work Phone: 1(237)[address] [place], [place] 2509010-01-2025 13:30-0400 Diastolic blood ogbwwtfb11 mm[Hg]Vitaliy Ball DO Work Phone: 1(609)[address] [place], [place] 2509010-01-2025 13:30-0400 Heart rate61 /minBenjamin Ball DO Work Phone: 1(990)[address] [place], [place] 2509010-01-2025 13:30-0400 Systolic blood mm[Hg]Vitaliy Ball DO Work Phone: 1(691)[address] [place], [place] 2509009-19-2025 09:43-0400 Body qukdiq833.07 cmBenjamin Ball DO Work Phone: 1(584)[address] [place], [place] 2509009-19-2025 09:43-0400 Body mass index (BMI) [Ratio]31.3 kg/v8Duxnjryp Ball DO Work Phone: 1(926)[address] [place], [place] 2509009-19-2025 09:43-0400 Body ojeybc877.41 kgBenjamin Ball DO Work Phone: 1(485)[address] [place], [place] 2509009-19-2025 09:43-0400 Diastolic blood ijnrlmlf48 mm[Hg]Vitaliy Ball DO Work Phone: 1(112)[address] [place], [place] 2509009-19-2025 09:43-0400 Heart rate76 /minBenjamin Ball DO Work Phone: 1(632)[address] [place], [place] 2509009-19-2025 09:43-0400 Respiratory rate12 /minBenjamin Ball DO Work Phone: 1(824)[facility] [place], [place] 9749709-19-2025 09:43-0400 Systolic blood avmzpnoj083 mm[Hg]Vitaliy Ball DO Work Phone: 1(588)[address] [place], [place] 2509009-15-2025 11:25-0400 Body pqumtg858.1 cmAntonio Steele MD Work Phone: [address] [place], [place] 6013909-15-2025 11:25-0400 Body mass index (BMI) [Ratio]31.69 kg/x0RpveawzAntonio Steele MD Work Phone: 1(270)41493[address] [place], [place] 6013909-15-2025 11:25-0400 Body lutidn682.61 kgAntonio Steele MD Work Phone: 1(791)[address]93[address] [place], [place] 6013909-15-2025 11:25-0400 Diastolic blood krjetyif82 mm[Hg]Antonio Steele MD Work Phone: 1(038)[address]09-15-2025 11:25-0400 Heart rate62 /Giuliano Steele MD Work Phone: 1(423)[address] [place], [place] 3636009-15-2025 11:25-0400 Systolic blood ejwbwlda162 mm[Hg]Antonio Steele MD Work Phone: 1([phone]09-08-2025 14:53-0400 Body bumdxd859.8 cmKeila Garcia [facility]09-08-2025 14:53-0400Body mass index (BMI) [Ratio]32.14 kg/w0ZhzzipKeila Garcia [facility]09-08-2025 14:53-0400Body .61 kgLambertoedward Radha [facility]09-08-2025 14:53-0400Diastolic blood aorvnvvq76 mm[Hg]Keila Garcia [facility]09-08-2025 14:53-0400 Heart rate74 /minKeila Garcia [facility]09-08-2025 14:53-0400Systolic blood lznkitfa597 mm[Hg]Keila Garcia [facility]09-05-2025 08:00-0400Diastolic blood mm[Hg]Vitaliy Ball DO Work Phone: [facility]09-05-2025 08:00-0400 Heart rate77 /minBenjamin Ball DO Work Phone: 1(445)414-56[facility]09-05-2025 08:00-0400 Respiratory rate16 /minBenjamin Ball DO Work Phone: 1(371)024-78[facility]09-05-2025 08:00-0400 SaO2% (BldA) [Mass fraction]98 %Vitaliy Ball DO Work Phone: 1(394)829-37[facility]09-05-2025 08:00-0400 Systolic blood mm[Hg]Vitaliy Ball DO Work Phone: 1(328)767-95[facility]09-05-2025 06:00-0400 Body esuufc33 kgBenjamin Ball DO Work Phone: 1(946)858-04[facility]09-05-2025 04:00-0400 Body acmxxtldwes17.9 [degF]Vitaliy Ball DO Work Phone: 1(942)310-79[facility]09-04-2025 12:53-0400 Body cgjuwo343.07 cmBenjamin Ball DO Work Phone: 1(671)867-72[facility]08-13-2025 12:44-0400 Body ehiteu146.8 cmAntonio Steele MD Work Phone: [facility]08-13-2025 12:44-0400 Body mass index (BMI) [Ratio]32.71 kg/d8IzepswoAntonio Steele MD Work Phone: [facility]08-13-2025 12:44-0400 Body xbyppp047.42 kgAntonio Steele MD Work Phone: 1(055)[phone]08-13-2025 12:44-0400 Diastolic blood mm[Hg]Antonio Steele MD Work Phone: [facility]08-13-2025 12:44-0400 Heart rate98 /minAntonio Steele MD Work Phone: [facility]08-13-2025 12:44-0400 Systolic blood tzwewwkt188 mm[Hg]Antonio Steele MD Work Phone: [facility]07-17-2025 14:28-0400 Diastolic blood cqxmbuga76 mm[Hg]Vitaliy Ball DO Work Phone: 1(046)964-[address] [place], [place] 9749707-17-2025 14:28-0400 Systolic blood yhsariwa857 mm[Hg]Vitaliy Ball DO Work Phone: 1(223)[address]07-02-2025 13:58-0400 Body jqrnyc720.8 cmBenjamin Ball DO Work Phone: 1(849)[address]07-02-2025 13:58-0400 Body mass index (BMI) [Ratio]32 kg/t3Proisytk Ball DO Work Phone: 1(364)43599 [address]07-02-2025 13:58-0400 Body .15 kgBenjamin Ball DO Work Phone: 1(732)[address] [place], [place] 2509007-02-2025 13:58-0400 Diastolic blood waynqagz61 mm[Hg]Vitaliy Ball DO Work Phone: 1(895)998-[address] [place], [place] 9749707-02-2025 13:58-0400 Heart ygyq401 /minBenjamin Ball DO Work Phone: 1(337)209-[address] [place], [place] 9749707-02-2025 13:58-0400 Respiratory rate12 /minBenjamin Ball DO Work Phone: 1(101)224-[address] [place], [place] 9749707-02-2025 13:58-0400 SaO2% (BldA) [Mass fraction]98 %Vitaliy Ball DO Work Phone: 1(474)434-[address] [place], [place] 9749707-02-2025 13:58-0400 Systolic blood pfbdpiur087 mm[Hg]Vitaliy Ball DO Work Phone: 1(835)[address]06-25-2025 11:14-0400 Diastolic blood laqrwkta37 mm[Hg]Vitaliy Ball DO Work Phone: 1419)[address] [place], [place] 2509006-25-2025 11:14-0400 Heart rate97 /minBenjamin Ball DO Work Phone: 1(419)[address] [place], [place] 2509006-25-2025 11:14-0400 Respiratory rate18 /minBenjamin Ball DO Work Phone: 1(419)[address] [place], [place] 2509006-25-2025 11:14-0400 SaO2% (BldA) [Mass fraction]95 %Vitaliy Ball DO Work Phone: 1(419)[address] [place], [place] 2509006-25-2025 11:14-0400 Systolic blood wuklimjk124 mm[Hg]Vitaliy Ball DO Work Phone: 1(419)[address] [place], [place] 2509006-25-2025 11:05-0400 Body aiwpaq608.8 cmBenjamin Ball DO Work Phone: 1419)[address] [place], [place] 2509006-25-2025 08:25-0400 Body bblksezymap24.9 [degF]Vitaliy Ball DO Work Phone: 1419)[address] [place], [place] 2509006-25-2025 05:45-0400 Body .5 kgBenjamin Ball DO Work Phone: 1(074)[address] [place], [place] 2509006-23-2025 17:10-0400 Diastolic blood jsonjxpd33 mm[Hg]Vitaliy Ball DO Work Phone: 1419)[address] [place], [place] 2509006-23-2025 17:10-0400 Heart rate84 /minBenjamin Ball DO Work Phone: 1(419)[address] [place], [place] 2509006-23-2025 17:10-0400 SaO2% (BldA) [Mass fraction]98 %Vitaliy Ball DO Work Phone: 1(419)[address] [place], [place] 2509006-23-2025 17:10-0400 Systolic blood qygqflxw287 mm[Hg]Vitaliy Ball DO Work Phone: 1419)[address] [place], [place] 2509006-23-2025 16:15-0400 Body ngkoiagetqf80.7 [degF]Vitaliy Ball DO Work Phone: 1419)[address] [place], [place] 2509006-23-2025 15:14-0400 Respiratory rate17 /minBenjamin Ball DO Work Phone: 1419)[address] [place], [place] 2509006-23-2025 03:31-0400 Body nyucyf940.34 cmBenjamin Ball DO Work Phone: 1419)[address] [place], [place] 2509006-23-2025 03:31-0400 Body mmauny770.2 kgBenjamin Ball DO Work Phone: 1419)[address] [place], [place] 2509006-03-2025 12:50-0400 Diastolic blood rmuizxwx68 mm[Hg]Vitaliy Ball DO Work Phone: 1419)[address] [place], [place] 2509006-03-2025 12:50-0400 Heart rate80 /minBenjamin Ball DO Work Phone: 1419)[address] [place], [place] 2509006-03-2025 12:50-0400 Respiratory rate25 /minBenjamin Ball DO Work Phone: 1419)[address] [place], [place] 2509006-03-2025 12:50-0400 SaO2% (BldA) [Mass fraction]96 %Vitaliy Ball DO Work Phone: 1(619)[address] [place], [place] 2509006-03-2025 12:50-0400 Systolic blood xcqsigea45 mm[Hg]Vitaliy Ball DO Work Phone: 1(366)[address] [place], [place] 2509006-03-2025 10:10-0400 Inhaled oxygen flow rate3 L/minBenjamin Ball DO Work Phone: 1(787)[address] [place], [place] 2509006-02-2025 12:00-0400 Body ywajsc785.07 cmBenjamin Ball DO Work Phone: [address] [place], [place] 2509006-02-2025 12:00-0400 Body kelnyr728 kgBenjamin Ball DO Work Phone: 1419)[address] [place], [place] 2509005-16-2025 08:59-0400 Body opqkgm832.1 Tk Steele MD Work Phone: 1([phone]05-16-2025 08:59-0400 Body mass index (BMI) [Ratio]32.82 kg/b0VbomznjAntonio Steele MD Work Phone: 1([phone]05-16-2025 08:59-0400 Body swarnl837.23 kgAntonio Steele MD Work Phone: 1(402)[address]05-16-2025 08:59-0400 Diastolic blood muyabmtm18 mm[Hg]Antonio Steele MD Work Phone: 1(795)[address]05-16-2025 08:59-0400 Heart rate95 /Giuliano Steele MD Work Phone: 1(077)[address]05-16-2025 08:59-0400 Systolic blood kteuxzxm454 mm[Hg]Antonio Steele MD Work Phone: 1(607)[address] [place], [place] 3636005-13-2025 16:08-0400 Body oxbkrp967.8 cmBenjamin Ball DO Work Phone: 1(535)122-19[facility]05-13-2025 16:08-0400 Body mass index (BMI) [Ratio]32.8 kg/p7Lcjpsmax Ball DO Work Phone: 1(027)172-28[facility]05-13-2025 16:08-0400 Body ulchjo805 kgBenjamin Ball DO Work Phone: 1(250)131-67[facility]05-13-2025 16:08-0400 Diastolic blood ugrwlzqv19 mm[Hg]Vitaliy Ball DO Work Phone: 1(230)803-22[facility]05-13-2025 16:08-0400 Heart rate98 /minBenjamin Ball DO Work Phone: 1(733)964-97[facility]05-13-2025 16:08-0400 Respiratory rate12 /minBenjamin Ball DO Work Phone: [address] [place], [place] 7214105-13-2025 16:08-0400 SaO2% (BldA) [Mass fraction]97 %Vitaliy Ball DO Work Phone: 1419)[facility] [place], [place] 9749705-13-2025 16:08-0400 Systolic blood jxkqnhyo48 mm[Hg]Vitaliy Ball DO Work Phone: 1419)[address] [place], [place] 2509005-07-2025 11:52-0400 Diastolic blood mm[Hg]Vitaliy Ball DO Work Phone: 1(419)[address] [place], [place] 2509005-07-2025 11:52-0400 Heart rate85 /minBenjamin Ball DO Work Phone: 1419)[address] [place], [place] 2509005-07-2025 11:52-0400 Respiratory rate18 /minBenjamin Ball DO Work Phone: 1419)[address] [place], [place] 2509005-07-2025 11:52-0400 SaO2% (BldA) [Mass fraction]95 %Vitaliy Ball DO Work Phone: 1(419)[address] [place], [place] 2509005-07-2025 11:52-0400 Systolic blood boenstys322 mm[Hg]Vitaliy Ball DO Work Phone: 1419)[address] [place], [place] 2509005-07-2025 07:33-0400 Body bxntlcpobma76.5 [degF]Vitaliy Ball DO Work Phone: 1419)[address] [place], [place] 2509005-07-2025 05:12-0400 Body .5 kgBenjamin Ball DO Work Phone: 1419)[address] [place], [place] 2509005-06-2025 15:39-0400 Body ijgzmu441.8 cmBenjamin Ball DO Work Phone: 1419)[address] [place], [place] 2509005-05-2025 11:49-0400 Diastolic blood mm[Hg]Vitaliy Ball DO Work Phone: 1419)[address] [place], [place] 2509005-05-2025 11:49-0400 Heart lazc336 /minBenjamin Ball DO Work Phone: [address] [place], [place] 2509005-05-2025 11:49-0400 Systolic blood gvaifdpb272 mm[Hg]Vitaliy Ball DO Work Phone: 1(419)[address] [place], [place] 2509005-05-2025 11:44-0400 Respiratory rate16 /minBenjamin Ball DO Work Phone: 1(419)[address] [place], [place] 2509005-05-2025 11:44-0400 SaO2% (BldA) [Mass fraction]91 %Vitaliy Ball DO Work Phone: 1(419)[address] [place], [place] 2509005-05-2025 10:03-0400 Body drixxu964.8 cmBenjamin Ball DO Work Phone: 1(419)[address] [place], [place] 2509005-05-2025 10:03-0400 Body eboizdqynwk59.1 [degF]Vitaliy Ball DO Work Phone: 1(419)[address] [place], [place] 2509005-05-2025 10:03-0400 Body qporjk281.9 kgBenjamin Ball DO Work Phone: 1(419)[address] [place], [place] 2509004-30-2025 12:00-0400 Body ssusxj001.8 cmBenjamin Ball DO Work Phone: 1(419)[address] [place], [place] 2509004-30-2025 12:00-0400 Body mass index (BMI) [Ratio]33.5 kg/v3Nwuwnotr Ball DO Work Phone: 1(419)[address] [place], [place] 2509004-30-2025 12:00-0400 Body zqojvm162.14 kgBenjamin Ball DO Work Phone: 1(419)[address] [place], [place] 2509004-25-2025 11:09-0400 Body msouht711.8 cmBenjamin Ball DO Work Phone: 1(419)[address] [place], [place] 2509004-25-2025 11:09-0400 Body kedyytylboy13 [degF]Vitaliy Ball DO Work Phone: 1(419)[address] [place], [place] 2509004-25-2025 11:09-0400 Body oaxilb598.7 kgBenjamin Ball DO Work Phone: 1(419)[address] [place], [place] 2509004-25-2025 11:09-0400 Diastolic blood xsdonoih53 mm[Hg]Vitaliy Ball DO Work Phone: 1(419)[address] [place], [place] 2509004-25-2025 11:09-0400 Heart rate61 /minBenjamin Ball DO Work Phone: 1(419)[address] [place], [place] 2509004-25-2025 11:09-0400 Respiratory rate18 /minBenjamin Ball DO Work Phone: 1(419)[address] [place], [place] 2509004-25-2025 11:09-0400 SaO2% (BldA) [Mass fraction]95 %Vitaliy Ball DO Work Phone: 1(419)[address] [place], [place] 2509004-25-2025 11:09-0400 Systolic blood cuqmglfi079 mm[Hg]Vitaliy Ball DO Work Phone: 1(419)[address] [place], [place] 2509004-23-2025 10:00-0400 Body bafsdk202.34 cmBenjamin Ball DO Work Phone: 1(419)[address] [place], [place] 2509004-23-2025 10:00-0400 Body mass index (BMI) [Ratio]32.8 kg/h7Abgrewqy Ball DO Work Phone: 1(419)[address] [place], [place] 2509004-23-2025 10:00-0400 Body molvqh191.59 kgBenjamin Ball DO Work Phone: 1(419)[address] [place], [place] 2509004-23-2025 10:00-0400 Diastolic blood oavxzbwf16 mm[Hg]Vitaliy Ball DO Work Phone: 1(419)[address] [place], [place] 2509004-23-2025 10:00-0400 Heart rate75 /minBenjamin Ball DO Work Phone: 1419)[address] [place], [place] 2509004-23-2025 10:00-0400 Respiratory rate12 /minBenjamin Ball DO Work Phone: 1419)[address] [place], [place] 2509004-23-2025 10:00-0400 Systolic blood rybobalg165 mm[Hg]Vitaliy Ball DO Work Phone: [address] [place], [place] 2509003-25-2025 13:36-0400 Body sdbsib931.34 cmBenjamin Ball DO Work Phone: [facility]03-25-2025 13:36-0400 Body mass index (BMI) [Ratio]33.6 kg/n8Mewvpkit Ball DO Work Phone: [facility]03-25-2025 13:36-0400 Body cmojbv420.31 kgBenjamin Ball DO Work Phone: [facility]03-25-2025 13:36-0400 Diastolic blood kqxeuufq05 mm[Hg]Vitaliy Ball DO Work Phone: [facility]03-25-2025 13:36-0400 Heart salf596 /minBenjamin Ball DO Work Phone: [facility]03-25-2025 13:36-0400 Respiratory rate12 /minBenjamin Ball DO Work Phone: [facility]03-25-2025 13:36-0400 Systolic blood lquzbkoa148 mm[Hg]Vitaliy Ball DO Work Phone: [facility]03-24-2025 09:38-0400 Body mass index (BMI) [Ratio]33.37 kg/m0GzhvwjkvHeladio Pineda MD Work Phone: [facility]03-24-2025 09:38-0400Body zammhc175 kg Heladio Pineda MD Work Phone: [phone]03-24-2025 09:38-0400Diastolic blood fjvsumch53 mm[Hg]Heladio Pineda MD Work Phone: 1(282)-6397[facility]03-24-2025 09:38-0400Heart rate81 /min Heladio Pineda MD Work Phone: 2(263)-8621[facility]03-24-2025 09:38-0400Systolic blood plempimn392 mm[Hg]Heladio Pineda MD Work Phone: [facility]01-24-2025 14:11-0500Body txggyn683.34 cmVan [facility]01-24-2025 14:11-0500Body mass index (BMI) [Ratio]33.2 kg/a6YlypztgmqVan [facility]01-24-2025 14:11-0500Body mogtiq163.06 [facility]01-24-2025 14:11-0500Diastolic blood qnmvymqp03 mm[Hg][facility]01-24-2025 14:11-0500 Heart hirl245 /[facility]01-24-2025 14:11-0500 Respiratory rate12 /[facility]01-24-2025 14:11-0500 Systolic blood tfcbhild918 mm[Hg][facility]12-09-2024 15:30-0500Body qzvdox815.34 cmVan [facility]12-09-2024 15:30-0500Body mass index (BMI) [Ratio]32.9 kg/s1MmafvbiltVan Wert County Hospital12-09-2024 15:30-0500Body cxsjbbqdkop23.3 [degF][facility]12-09-2024 15:30-0500Body geuzze987.16 [facility]12-09-2024 15:30-0500Diastolic blood fyzcdtvw19 mm[Hg][facility]12-09-2024 15:30-0500Heart hhlh972 [facility]12-09-2024 15:30-0500Respiratory rate12 [facility]12-09-2024 15:30-0500Systolic blood sjtkecuk855 mm[Hg][facility]11-07-2024 13:51-0500Body iotpyn467.8 cmAntonio Steele MD Work Phone: [facility]11-07-2024 13:51-0500 Body mass index (BMI) [Ratio]35.01 kg/n4PgfiytjAntonio Steele MD Work Phone: [facility]11-07-2024 13:51-0500 Body ptayqz009.68 Kimberly Steele MD Work Phone: [facility]11-07-2024 13:51-0500 Diastolic blood viwtweri58 mm[Hg]Antonio Steele MD Work Phone: [facility]11-07-2024 13:51-0500 Systolic blood ioeqlslr938 mm[Hg]Antonio Steele MD Work Phone: [facility]10-22-2024 13:21-0400 Diastolic blood mm[Hg]Bird Kowalski MD Work Phone: [facility]10-22-2024 13:21-0400 Heart rate67 /John Kowalski MD Work Phone: 1(373)766-[facility]10-22-2024 13:21-0400 Respiratory rate15 /John Kowalski MD Work Phone: 1(955)145-[facility]10-22-2024 13:21-0400 SaO2% (BldA) [Mass fraction]95 %Bird Kowalski MD Work Phone: [facility]10-22-2024 13:21-0400 Systolic blood usuwotku787 mm[Hg]Bird Kowalski MD Work Phone: [facility]10-22-2024 09:49-0400 Body .1 Taryn Kowalski MD Work Phone: [facility]10-22-2024 09:49-0400 Body mass index (BMI) [Ratio]34.6 kg/r8HwomvfBird Kowalski MD Work Phone: [facility]10-22-2024 09:49-0400 Body zjfmdy772 kgBird Kowalski MD Work Phone: [facility]09-23-2024 13:42-0400 Diastolic blood mtpmifri00 mm[Hg]DO Vitaliy Brower Work Phone: [facility]09-23-2024 13:42-0400 Heart rate70 /minDO Vitaliy Ball Work Phone: [facility]09-23-2024 13:42-0400 Respiratory rate16 /minDO Vitaliy Ball Work Phone: [facility]09-23-2024 13:42-0400 SaO2% (BldA) [Mass fraction]98 %DO Vitaliy Ball Work Phone: 1([phone])096-76[facility]09-23-2024 13:42-0400 Systolic blood wvsoryyd026 mm[Hg]DO Vitaliy Ball Work Phone: 1(797)861-30[facility]09-23-2024 10:41-0400 Body htqalc778.07 cmDO Vitaliy Ball Work Phone: 1(151)665-06[facility]09-23-2024 10:41-0400 Body .23 kgDO Vitaliy Ball Work Phone: 1(485)621-48[facility]09-11-2024 10:00-0400 Body qiknmv577.1 Taryn Kowalski MD Work Phone: [facility]09-11-2024 10:00-0400 Body mass index (BMI) [Ratio]34.52 kg/r2ZkfdomBird Kowalski MD Work Phone: [facility]09-11-2024 10:00-0400 Body babgktxkxkd00.5 [degF]Bird Kowalski MD Work Phone: [facility]09-11-2024 10:00-0400 Body .68 kgBird Kowalski MD Work Phone: [facility]09-11-2024 10:00-0400 Diastolic blood gwarcvyo57 mm[Hg]Bird Kowalski MD Work Phone: [facility]09-11-2024 10:00-0400 Heart rate73 /John Kowalski MD Work Phone: [facility]09-11-2024 10:00-0400 Respiratory rate16 /John Kowalski MD Work Phone: [facility]09-11-2024 10:00-0400 SaO2% (BldA) [Mass fraction]95 %Bird Kowalski MD Work Phone: [facility]09-11-2024 10:00-0400 Systolic blood mm[Hg]Bird Kowalski MD Work Phone: [facility]08-12-2024 14:26-0400 Body mpycmq808.64 cmDO Vitaliy Ball Work Phone: [phone]50[facility]08-12-2024 14:26-0400 Body mass index (BMI) [Ratio]37.8 kg/m2DO Vitaliy Ball Work Phone: [phone]07[facility]08-12-2024 14:26-0400 Body hepihp944.31 kgDO Vitaliy Ball Work Phone: [phone]08-12-2024 14:26-0400 Diastolic blood vqmdowwb97 mm[Hg]DO Vitaliy Ball Work Phone: [phone]08-12-2024 14:26-0400 Heart rate80 /minDO Vitaliy Ball Work Phone: [phone]08-12-2024 14:26-0400 Respiratory rate12 /minDO Vitaliy Ball Work Phone: [phone]08-12-2024 14:26-0400 Systolic blood rcnyocem498 mm[Hg]DO Vitaliy Ball Work Phone: [phone]07-11-2024 14:32-0400 Body mass index (BMI) [Ratio]33.95 kg/h9NikxzcsAntonio Steele MD Work Phone: [facility]07-11-2024 14:32-0400 Body lyborx269.86 kgAntonio Steele MD Work Phone: [facility]07-11-2024 14:32-0400 Diastolic blood iembnucq28 mm[Hg]Antonio Steele MD Work Phone: [facility]07-11-2024 14:32-0400 Heart rate82 /Giuliano Steele MD Work Phone: [facility]07-11-2024 14:32-0400 Systolic blood jtquregz918 mm[Hg]Antonio Steele MD Work Phone: [facility]05-31-2024 13:17-0400 Body ukcelc445.64 cmDO Vitaliy Ball Work Phone: [phone]05-31-2024 13:17-0400 Body mass index (BMI) [Ratio]38.5 kg/m2DO Vitaliy Ball Work Phone: [phone]05-31-2024 13:17-0400 Body mxipkh774.12 kgDO Vitaliy Ball Work Phone: [phone]05-31-2024 13:17-0400 Diastolic blood sqxeiome33 mm[Hg]DO Vitaliy Ball Work Phone: 1(112)77[address]05-31-2024 13:17-0400 Heart rate78 /minDO Vitaliy Ball Work Phone: 1(526)[address]05-31-2024 13:17-0400 Respiratory rate12 /minDO Vitaliy Ball Work Phone: 1(877)248-[address] [place], [place] 9749705-31-2024 13:17-0400 Systolic blood gqmkrieb657 mm[Hg]DO Vitaliy Ball Work Phone: 1(531)033[address]05-25-2024 11:29-0400 Body ndhxbuarplp20.8 [degF]DO Vitaliy Ball Work Phone: 1(320)44399 [address]05-25-2024 11:29-0400 Diastolic blood oksrfatk45 mm[Hg]DO Vitaliy Ball Work Phone: 1(235)8[address]05-25-2024 11:29-0400 Heart rate88 /minDO Vitaliy Ball Work Phone: 1(431)87[address]05-25-2024 11:29-0400 Respiratory rate16 /minDO Vitaliy Ball Work Phone: 1(818)[address] [place], [place] 2509005-25-2024 11:29-0400 SaO2% (BldA) [Mass fraction]98 %DO Vitaliy Ball Work Phone: 1(225)[address]05-25-2024 11:29-0400 Systolic blood mm[Hg]DO Vitaliy Ball Work Phone: 1(933)[address] [place], [place] 2509005-25-2024 05:17-0400 Body xjfqwe805 kgDO Vitaliy Ball Work Phone: 1(867)[address] [place], [place] 2509005-24-2024 13:01-0400 Body tdmpey578.8 cmDO Vitaliy Ball Work Phone: 1(847)[address] [place], [place] 2509005-23-2024 22:00-0400 Diastolic blood ppbnmyaq58 mm[Hg]DO Vitaliy Ball Work Phone: 1(586)4[address]05-23-2024 22:00-0400 Heart rate86 /minDO Vitaliy Ball Work Phone: 1(215)93299 [address]05-23-2024 22:00-0400 Respiratory rate21 /minDO Vitaliy Ball Work Phone: 1(079)[address] [place], [place] 2509005-23-2024 22:00-0400 SaO2% (BldA) [Mass fraction]93 %DO Vitaliy Ball Work Phone: 1(042)168-[address] [place], [place] 9749705-23-2024 22:00-0400 Systolic blood vldvymde628 mm[Hg]DO Vitaliy Ball Work Phone: 1(678)[address] [place], [place] 2509005-23-2024 20:00-0400 Body ndyjegzvbvr59.8 [degF]DO Vitaliy Ball Work Phone: 1(456)[address] [place], [place] 2509005-23-2024 16:29-0400 Body adkxgs358.8 cmDO Vitaliy Ball Work Phone: 1(869)[address]99 [address]05-23-2024 16:29-0400 Body vlidfh933.23 kgDO Vitaliy Ball Work Phone: [facility]05-09-2024 11:36-0400 Body iyewhp928.1 [facility] 11:36-0400Body mass index (BMI) [Ratio]34.52 [facility] 11:36-0400[facility] .68 [facility] 11:36-0400Diastolic blood wtsnpolm61 mm[Hg][facility]05-09-2024 11:36-0400 Heart rate75 /[facility]05-09-2024 11:36-0400Systolic blood ckwrmnik898 mm[Hg][facility]04-25-2024 09:29-0400Inhaled oxygen flow rate3 L/minDO Vitaliy Ball Work Phone: [facility]04-25-2024 09:29-0400 SaO2% (BldA) [Mass fraction]95 %DO Vitaliy Ball Work Phone: [facility]04-24-2024 13:58-0400 Body exadiv906.8 cmDO Vitaliy Ball Work Phone: [facility]04-24-2024 13:58-0400 Body myhrwo568 kgDO Vitaliy Ball Work Phone: [phone]04-19-2024 11:14-0400 Diastolic blood pjcbaika96 mm[Hg]Antonio Steele MD Work Phone: [facility]04-19-2024 11:14-0400 Systolic blood fyxmcmrk911 mm[Hg]Antonio Steele MD Work Phone: [facility]04-19-2024 11:13-0400 Body mzurwn885.8 cmAntonio Steele MD Work Phone: [facility]04-19-2024 11:13-0400 Body mass index (BMI) [Ratio]35.15 kg/u5TwgloxyAntonio Steele MD Work Phone: [facility]04-19-2024 11:13-0400 Body fcakal821.13 kgAntonio Steele MD Work Phone: 1(323)[address]04-19-2024 11:13-0400 Heart rate91 /minAntonio Steele MD Work Phone: 1([phone]03-22-2024 10:00-0400 Body nhhimj211.8 cmDO Vitaliy Ball Work Phone: [phone])[address]03-22-2024 10:00-0400 Body mass index (BMI) [Ratio]35.7 kg/m2DO Vitaliy Ball Work Phone: 1(892)076-[address] [place], [place] 9749703-22-2024 10:00-0400 Body cyfmsv340.11 kgDO Vitaliy Ball Work Phone: 1(212)81499 [address]03-22-2024 10:00-0400 Diastolic blood obmpdqgs08 mm[Hg]DO Vitaliy Ball Work Phone: 1(061)176-[address] [place], [place] 9749703-22-2024 10:00-0400 Heart rate86 /minDO Vitaliy Ball Work Phone: 1(847)107-[address] [place], [place] 9749703-22-2024 10:00-0400 Respiratory rate12 /minDO Vitaliy Ball Work Phone: 1(013)284-[address] [place], [place] 9749703-22-2024 10:00-0400 Systolic blood xzzdedly957 mm[Hg]DO Vitaliy Ball Work Phone: 1(387)788[address]02-26-2024 14:08-0500 Body jruvwj484.8 Alessandro Velasco MD Work Phone: [facility]02-26-2024 14:08-0500Body mass index (BMI) [Ratio]34.15 kg/p7TxaahdSarai Velasco MD Work Phone: 1(393)732-SkyJamGifford Medical Centerazeti Networksny LandingiYeuqfi28-25-2773 14:08-0500Body mkeyro882.96 kgSarai Velasco MD Work Phone: 1(872)839-SkyJamDetwiler [facility] Hospital LandingiLphzra67-53-0635 14:08-0500Diastolic blood idtvyllm25 mm[Hg]Sarai Velasco MD Work Phone: 1(119)455-SkyJamDetwiler [facility] Hospital LandingiVbjqyr94-79-4328 14:08-0500Heart rate 94 /minSarai Velasco MD Work Phone: 1(823)926-SkyJamDetwiler Memorial Hospital LandingiUazile23-69-2755 14:08-2773RdI2% (BldA) [Mass fraction]94 %Sarai Velasco MD Work Phone: [facility] LandingiCbchmf60-07-8964 14:08-0500Systolic blood wtlbiyvx030 mm[Hg]Sarai Velasco MD Work Phone: 1(376)471-SkyJamDetwiler [facility] Hospital [employer] Yzdbys51-07-7303 11:00-0500Body .8 cmSukhjinder Montesinos Other [facility]01-29-2024 11:00-0500 Body mass index (BMI) [Ratio]34.72 kg/i0WwginSukhjinder Montesinos Other [facility] [employer] Other 01-29-2024 11:00-0500Body axrgfx577.76 kgDO Vitaliy Brower Work Phone: [facility]01-29-2024 11:00-0500 Body .77 kgKesaida Montesinos Other [facility] [employer] Other 01-24-2024 10:45-0500Body vejche203.8 cmBejuany Ball Other [facility]01-24-2024 10:45-0500 Body mass index (BMI) [Ratio]34.72 kg/i9Nmvguttl Ball Other [facility] [employer] Other 01-24-2024 10:45-0500Body duhqat067.77 kgBenjamin Ball Other [place] [employer] Other 01-24-2024 10:45-0500Body argqgv489.76 kgDO Vitaliy Ball Work Phone: [facility]01-24-2024 10:45-0500 Diastolic blood ipzdjvxs97 mm[Hg]Vitaliy Ball Other [facility]01-24-2024 10:45-0500 Respiratory rate12 /minBenjamin Ball Other [place] [employer] Other 01-24-2024 10:45-0500Systolic blood ravtiklb976 mm[Hg] Vitaliy Ball Other [facility]12-28-2023 10:15-0500 Body valete197.8 cmBenjamin Ball Other [facility]12-28-2023 10:15-0500 Body mass index (BMI) [Ratio]34.29 kg/t1Rjvspubr Ball Other [place] [employer] Other 12-28-2023 10:15-0500Body aywpbi705.41 kgBenjamin Ball Other [place] [employer] Other 12-28-2023 10:15-0500Body cmhulk515.4 kgDO Vitaliy Ball Work Phone: [facility]12-28-2023 10:15-0500 Diastolic blood mm[Hg]Vitaliy Ball Other [facility]12-28-2023 10:15-0500 Respiratory rate12 /minBenjamin Ball Other [place] [employer] Other 12-28-2023 10:15-0500Systolic blood bqfzunit51 mm[Hg] Vitaliy Ball Other [facility]12-07-2023 11:15-0500 Body oiigbm677.8 cmSalvatoresaida Yamel Other [facility]12-07-2023 11:15-0500 Body mass index (BMI) [Ratio]34.29 kg/a7CbbgwSukhjinder Montesinos Other [facility] [employer] Other 12-07-2023 11:15-0500Body odhmfq338.41 kgSukhjinder Montesinos Other [place] [employer] Other 12-07-2023 11:15-0500Body luatkl855.4 kgDO Vitaliy Ball Work Phone: [facility]11-27-2023 13:28-0500 Body .59 kgHeladio Pineda MD Work Phone: [facility]11-27-2023 13:28-0500Diastolic blood enkwxehf13 mm[Hg]Heladio Pineda MD Work Phone: [facility]11-27-2023 13:28-0500Heart ansa738 /minHeladio Pineda MD Work Phone: [facility]11-27-2023 13:28-0500Systolic blood thpcyviw056 mm[Hg]Heladio Pineda MD Work Phone: [facility]11-07-2023 15:00-0500Diastolic blood dcspjepb86 mm[Hg]DO Vitaliy Ball Work Phone: [facility]11-07-2023 15:00-0500 Heart rate75 /minDO Vitaliy Ball Work Phone: [facility]11-07-2023 15:00-0500 Respiratory rate16 /minDO Vitaliy Ball Work Phone: [facility]11-07-2023 15:00-0500 SaO2% (BldA) [Mass fraction]94 %DO Vitaliy [employer] Work Phone: [phone]11-07-2023 15:00-0500 Systolic blood pezmayfe913 mm[Hg]DO Vitaliy Ball Work Phone: 1([phone])465-25[facility]11-07-2023 11:45-0500 Inhaled oxygen flow rate1 L/minDO Vitaliy [employer] Work Phone: 1([phone]11-07-2023 10:48-0500 Body ibvymsxhnwv56.2 [degF]DO Vitaliy [employer] Work Phone: 1(058)[address]11-07-2023 06:59-0500 Body actbha170.07 cmDO Vitaliy [employer] Work Phone: 1([phone]11-07-2023 06:59-0500 Body mass index (BMI) [Ratio]34 kg/m2DO Vitaliy [employer] Work Phone: 1([phone]11-07-2023 06:59-0500 Body unoylz728 kgDO Vitaliy [employer] Work Phone: 1(020)[address] [place], [place] 2509010-18-2023 15:15-0400 Body lonfvt697.8 cmBenjamin Ball Other [place] [employer] Other 10-18-2023 15:15-0400Body mass index (BMI) [Ratio] 34.32 kg/o6Gcoozjhf Ball Other [place] [employer] Other 10-18-2023 15:15-0400Body .5 kgBenjamin Ball Other [place] [employer] Other 10-18-2023 15:15-0400Diastolic blood zlbcykxn46 mm[Hg] Vitaliy Ball Other [place] [employer] Other 10-18-2023 15:15-0400Respiratory rate12 /minBenjamin Ball Other [facility] Other 10-18-2023 15:15-0400Systolic blood mm[Hg] Vitaliy Ball Other [facility] [employer] Other 09-29-2023 10:55-0400Body .1 cmHeladio Pineda MD Work Phone: [facility]09-29-2023 10:55-0400Body bxulqd971.5 kgHeladio Pineda MD Work Phone: [facility]09-29-2023 10:55-0400Diastolic blood epfxktuf54 mm[Hg]Heladio Pineda MD Work Phone: [facility]09-29-2023 10:55-0400Heart rate71 /min Heladio Pineda MD Work Phone: [facility]09-29-2023 10:55-0400Systolic blood tknfqafp449 mm[Hg]Heladio Pineda MD Work Phone: [facility]09-26-2023 10:30-0400Body obpsxa110.8 cmBenrigoberto Ball Other [facility] [employer] Other 09-26-2023 10:30-0400Body mass index (BMI) [Ratio]34.4 kg/u0Mteoiugr Ball Other [facility] [employer] Other 09-26-2023 10:30-0400Body idvpcg930.77 kgBenjamin Ball Other [employer] Other 09-26-2023 10:30-0400Diastolic blood uocvrdrs46 mm[Hg] Vitaliy Ball Other [facility] [employer] Other 09-26-2023 10:30-0400Respiratory rate12 /minBenjamin Ball Other [employer] Other 09-26-2023 10:30-0400Systolic blood vdbcybxw898 mm[Hg] Vitaliy Ball Other [employer] Other 08-07-2023 15:15-0400Body oodhaq124.8 cmBenjamin Ball Other [employer] Other 08-07-2023 15:15-0400Body mass index (BMI) [Ratio] 33.86 kg/d4Czhjyrdo Ball Other [employer] Other 08-07-2023 15:15-0400Body bfohcn266.05 kgBenjamin Ball Other [employer] Other 08-07-2023 15:15-0400Diastolic blood dnandakt03 mm[Hg] Vitaliy Ball Other [employer] Other 08-07-2023 15:15-0400Respiratory rate12 /minBenjamin Ball Other [employer] Other 08-07-2023 15:15-0400Systolic blood bnzzyodp674 mm[Hg] Vitaliy Ball Other [employer] Other 07-19-2023 14:45-0400Body dzlemh218.8 cmBenjamin Ball Other [employer] Other 07-19-2023 14:45-0400Body mass index (BMI) [Ratio] 35.24 kg/d5Pgunsfkm Ball Other [employer] Other 07-19-2023 14:45-0400Body qarqsz567.4 kgBenjamin Ball Other [place] [employer] Other 07-19-2023 14:45-0400Diastolic blood xituqrel61 mm[Hg] Vitaliy Ball Other [place] [employer] Other 07-19-2023 14:45-0400Respiratory rate12 /minBenjamin Ball Other [place] [employer] Other 07-19-2023 14:45-0400Systolic blood mhtutdnd190 mm[Hg] Vitaliy Ball Other [place] [employer] Other 07-05-2023 15:50-0400Diastolic blood vovlbvzx40 mm[Hg] DO Vitaliy Ball Work Phone: [facility]07-05-2023 15:50-0400 Heart rate75 /minDO Vitaliy Ball Work Phone: [facility]07-05-2023 15:50-0400 Respiratory rate20 /minDO Vitaliy Ball Work Phone: [facility]07-05-2023 15:50-0400 SaO2% (BldA) [Mass fraction]95 %DO Vitaliy Ball Work Phone: [facility]07-05-2023 15:50-0400 Systolic blood mm[Hg]DO Vitaliy Ball Work Phone: [facility]06-27-2023 08:30-0400 Body xxucdk204.8 cmBenjamin Ball Other [place] [employer] Other 06-27-2023 08:30-0400Body mass index (BMI) [Ratio] 36.01 kg/v4Rpwpyvsv Ball Other [place] [employer] Other 06-27-2023 08:30-0400Body givbyn625.85 kgBenjamin Ball Other [employer] Other 06-27-2023 08:30-0400Diastolic blood ecsitzmx46 mm[Hg] Vitaliy Ball Other [employer] Other 06-27-2023 08:30-0400Respiratory rate12 /minBenjamin Ball Other [employer] Other 06-27-2023 08:30-0400Systolic blood bplfufds470 mm[Hg] Vitaliy Ball Other [employer] Other 05-03-2023 10:00-0400Body .8 cmBenjamin Ball Other [employer] Other 05-03-2023 10:00-0400Body mass index (BMI) [Ratio] 36.21 kg/z5Bfosqmul Ball Other [employer] Other 05-03-2023 10:00-0400Body elmtkl274.49 kgBenjamin Ball Other [employer] Other 05-03-2023 10:00-0400Diastolic blood ofcnanaz52 mm[Hg] Vitaliy Ball Other [employer] Other 05-03-2023 10:00-6306UwU2% (BldA) [Mass fraction]94 % Vitaliy Ball Other [employer] Other 05-03-2023 10:00-0400Systolic blood itzgenhn374 mm[Hg] Vitaliy Ball Other [employer] Other 04-21-2023 10:30-0400Body apovje889.8 cmBenjamin Ball Other [employer] Other 04-21-2023 10:30-0400Body mass index (BMI) [Ratio] 36.67 kg/p1Xqpgffki Ball Other [employer] Other 04-21-2023 10:30-0400Body rxtosp596.94 kgBenjamin Ball Other [employer] Other 04-21-2023 10:30-0400Diastolic blood hankincw55 mm[Hg] Vitaliy Ball Other [employer] Other 04-21-2023 10:30-0400Respiratory rate16 /minBenjamin Ball Other [employer] Other 04-21-2023 10:30-0400Systolic blood trqotdob305 mm[Hg] Vitaliy Ball Other [employer] Other 02-14-2023 15:15-0500Body jrpbei265.8 cmBenjamin Ball Other [employer] Other 02-14-2023 15:15-0500Body mass index (BMI) [Ratio] 37.47 kg/s1Lxinojoy Ball Other [employer] Other 02-14-2023 15:15-0500Body owngsc402.48 kgBenjamin Ball Other [employer] Other 02-14-2023 15:15-0500Diastolic blood nscesiou71 mm[Hg] Vitaliy Ball Other [facility] Other 02-14-2023 15:15-0500Respiratory rate12 /minBenjamin Ball Other [facility] [employer] Other 02-14-2023 15:15-0500Systolic blood zvwkwvwu195 mm[Hg] Vitaliy Ball [facility] Other 02-13-2023 14:01-0500Body .8 cmDO Vitaliy Ball Work Phone: [facility]02-13-2023 14:01-0500 Body xlpomzkfgrp50 [degF]DO Vitaliy Ball Work Phone: [facility]02-13-2023 14:01-0500 Body .95 kgDO Vitaliy Ball Work Phone: [facility]02-13-2023 14:01-0500 Diastolic blood mm[Hg]DO Vitaliy Ball Work Phone: [facility]02-13-2023 14:01-0500 Heart rate77 /minDO Vitaliy Ball Work Phone: [facility]02-13-2023 14:01-0500 Respiratory rate18 /minDO Vitaliy Ball Work Phone: [facility]02-13-2023 14:01-0500 SaO2% (BldA) [Mass fraction]95 %DO Vitaliy Ball Work Phone: [facility]02-13-2023 14:01-0500 Systolic blood mm[Hg]DO Vitaliy Ball Work Phone: [facility]11-09-2022 15:00-0500 Body .8 [facility] Dionisio Other [place] [employer] Other 11-09-2022 15:00-0500Body mass index (BMI) [Ratio] 34.15 kg/z8Zbpwcyimarsha Nichole Other [employer] Other 11-09-2022 15:00-0500Body .96 kgCollmarsha Nichole Other [employer] Other 11-07-2022 11:00-0500Body jncaot540.8 cmThomas Felter Other [employer] Other 06-22-2022 12:15-0400Body xenpoa987.8 cmRobert [place] II Other [employer] Other 03-11-2022 09:15-0500Body btyjkq645.8 cmRobert [place] II Other [employer] Other 03-11-2022 09:15-0500Body mass index (BMI) [Ratio] 34.15 kg/c5Jajtyk [place] II Other [employer] Other 03-11-2022 09:15-0500Body .96 kgRobert Andrea II Other [employer] Other 11-16-2021 15:45-0500Body byhiri901.8 cmThomas Felter Other [employer] Other 11-16-2021 15:45-0500Body mass index (BMI) [Ratio] 34.43 kg/v5Rffxte Felter Other [employer] Other 11-16-2021 15:45-0500Body wbudaf136.86 kgThomas Felter Other [employer] Other 09-29-2021 10:45-0400Body mckzaf606.8 cmThomas Felter Other [employer] Other 09-29-2021 10:45-0400Body mass index (BMI) [Ratio] 34.43 kg/m2Oeomug Felter Other [employer] Other 09-29-2021 10:45-0400Body taowpg527.86 kgThomas Felter Other [employer] Other Encounters Encounter DateEncounter TypeCare ProviderFacilityStart: 74-36-1909qauccggmhlShriners Hospitals for Childrentart: 01-30-2025 End: 93-62-2441Vhnpdipfy department patient visitDIOGO MACIASPeoples Hospitaltart: 01-30-2025 End: 73-17-3469Olcjlzgii department patient visitDiogo Macias MD Work Phone: [facility] Emergency MedicineComment on above:Right leg weakness (Primary Dx)Start: 01-29-2025 End: 88-46-8659Yfeslyosu department patient visitBenjamin Ball DO Work Phone: [phone])512-0987754-5228-Luiaeycly Room Work Phone: Start: 01-29-2025 End: 65-98-7115mpropcwjxoSrmtddgf Ball DO Work Phone: [phone]-Ykfvsgrxe Health Pain Mgmt BCStart: 01-29-2025 End: 78-13-5697Apjlxvc encounter procedureJonathan Krause MD-[facility] Work Phone: Start: 01-27-2025 End: 57-15-3226Oafhqrs encounter procedureJonathan Krause MD-[facility] Work Phone: Start: 01-27-2025 End: 06-58-9576gkvtczgatsHbnivaxo Ball DO Work Phone: -[facility] HospitalStart: 01-12-2025 End: 88-43-5547zpycruwdwvImogleux Ball DO Work Phone: [facility] Work Phone: Start: 01-12-2025 End: 64-37-1631Cyxjrth encounter procedureBenjamin Ball DO-[facility] Work Phone: Start: 01-07-2025 End: 77-56-4973Iddmusa encounter procedureRobedwar Friasy OrthoStart: 01-07-2025 End: 79-93-7685amhzhjlgcqRtpnvlwf Ball DO Work Phone: [facility] Work Phone: Start: 01-07-2025 End: 78-70-6668Atoflib encounter procedureRobedwar Antunez MD-[facility] Orthopedic Work Phone: Start: 01-05-2025 End: 66-43-4699zuwpzuiqwaXidzbedh Ball DO Work Phone: [facility] Work Phone: Start: 01-05-2025 End: 03-61-0889Vaweppm encounter procedureJonathan Krause MD-[facility] Pain Mgmt [facility] Work Phone: Start: 41-69-8845Wqz-patient / Non-visitThida Krause MDSpe[facility]fish [facility] Work Phone: Start: 12-29-2024 End: 45-49-1202itlesclrpyYkubsvux Ball DO Work Phone: [facility] Work Phone: Start: 12-29-2024 End: 84-66-8763Wfoybav encounter procedureJonathan CLAUDIOClermont [facility] Work Phone: Start: 12-26-2024 End: 42-55-5487asziucgejhKwbuvzqt Ball DO Work Phone: [facility] Work Phone: Start: 12-26-2024 End: 50-05-4200Vgtfoyz encounter procedureBeesautimi Brower DOAd[facility] Work Phone: Start: 12-22-2024 End: 78-97-8429Ykbzll outpatient visit 25 minutesAntonio Steele MD Work Phone: [facility] HealthComment on above:Status post aorto-coronary artery bypass graft (Primary Dx); Multi-vessel coronary artery stenosis; Presence of Watchman left atrial appendage closure device; Persistent atrial fibrillation (Multi); Mixed hyperlipidemia; Dilated aortic root; Cardiomyopathy, ischemic; Never smoked cigarettes; Obesity (BMI 30-39.9)Start: 12-22-2024 End: 27-29-1288xvwejejlsgKOJBVRYGreat Lakes Health System AmbulatoryStart: 00-35-4031Ged-patient / Non-visitCatherine Angel [facility] Work Phone: Start: 03-26-0970Opu-patient / Non-visitJamie Akhil Antunez PA-C-[facility] Work Phone: Start: 12-15-2024 End: 15-30-9933Dxaffxwuhzav / ancillary services managementJenniferjay Garcia [facility] HospitalStart: 12-15-2024 End: 31-29-9751vfuijjdeauZIVDUDNGreat Lakes Health System AmbulatoryStart: 81-61-5126Cnr-patient / Non-visitCatherine Angel [facility] Work Phone: Start: 12-15-2024 End: 23-78-1665hhkxnhixqmEqewlzhc Ball DO Work Phone: [facility] Work Phone: Start: 12-15-2024 End: 48-29-0505Ilqmuua encounter procedureJonathan Krause MD-[facility] Work Phone: Start: 12-09-2024 End: 34-75-4751Wztkxcrcjw and management of inpatientMonanci Steele MD-[facility] Work Phone: Start: 11-19-2024 End: 89-35-6284Jegaog outpatient visit 40 minutesAntonio Steele MD Work Phone: uh [facility] on above:Persistent atrial fibrillation (Multi) (Primary Dx); Multi-vessel coronary artery stenosis; Status post aorto-coronary artery bypass graft; Presence of Watchman left atrial appendage closure device; Mixed hyperlipidemia; Dilated aortic root; Cardiomyopathy, ischemic; Never smoked cigarettes; BMI 32.0-32.9,adultStart: 11-19-2024 End: 03-33-3334kdjjoqpuxnRBFTOAHGreat Lakes Health System AmbulatoryStart: 10-23-2024 End: 06-43-4005dpcwqrmiphIbkcqvec Ball DO Work Phone: [facility] Work Phone: Start: 10-23-2024 End: 96-50-4062Dtrkwpl encounter procedureSarai Antunez MD-[facility] Orthopedics Work Phone: Start: 10-23-2024 End: 16-82-1567Yfcpidx encounter procedureSarai Antunez MD-[facility] OrthoStart: 10-23-2024 End: 97-36-9115epbikgtmjwGpkuozpz Ball DO Work Phone: [facility] Work Phone: Start: 10-08-2024 End: 93-19-8434qsxisynomrWcdxwltw Ball DO Work Phone: [facility] Work Phone: Start: 10-08-2024 End: 73-84-3430Snhpngb encounter procedureBenjamin Ball DO-[facility] Work Phone: Start: 09-30-2024 End: 16-55-9226jjjxxdddywUgmyi HusseinFacility:[facility] Start: 09-30-2024 End: 76-70-6726Nrysljzvqy and management of inpatientYazid Yaakov DO-[facility] Work Phone: Start: 09-30-2024 End: 38-20-3021uaaiupxjbzm encounterBenrigoberto Brower DO Work Phone: [facility] Work Phone: Start: 09-29-2024 End: 26-25-1298Cutploalna and management of inpatientRahudawn Cabello MD-[facility] Work Phone: Start: 09-29-2024 End: 93-12-3679bonpagnsviHdmik IrineoFacility:[facility] Start: 67-30-0406Zht-patient / Non-visitFang Zhu MD-[facility] Work Phone: Start: 09-26-2024 End: 59-76-3037rsqnwgpzmjSmjfmpiy Tsai MD Work Phone: RheumatologyComment on above:Pseudogout involving multiple joints (Primary Dx); Idiopathic chronic gout of multiple sites without tophus; Secondary osteoarthritis of multiple sites; PMR (polymyalgia rheumatica) (HCC); CHENCHO positive; Bilateral hand pain; Long-term use of high-risk medication; Chronic hip pain, bilateral; Rotator cuff arthropathy of left shoulder; 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; Bilateral hand swelling; Chronic pain of both knees; Leg weakness, bilateral; Chronic bilateral low back pain without sciatica; Bilateral knee swellingStart: 09-26-2024 End: [id number] consultation with patientHeladio Pineda MD Work Phone: RheumatologyStart: 09-13-2024 End: [id number] encounterHeladio Pineda MD Work Phone: RheumatologyComment on above:Orders; AppointmentStart: 09-13-2024 End: [id number] encounter procedureHeladio Pineda MD Work Phone: RheumatologyComment on above: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); Pseudogout involving multiple joints; Chronic pain of both knees; Vitamin D deficiency; Secondary osteoarthritis of multiple sites; PMR (polymyalgia rheumatica) (HCC); CHENCHO positive; Bilateral hand pain; Long-term use of high-risk medication; Chronic hip pain, bilateralStart: 09-13-2024 End: [id number] consultation with Serafin Pineda MD Work Phone: eumatologyStart: 09-13-2024 End: 12-10-2472kxeohzsmzjYLSTYHDU TSAIFacility:[facility] Hospitaltart: 09-09-2024 End: 72-57-5469Enflmmzuu to same day surgery [place] plainsBejoseloColosseoEAS DO Work Phone: [facility] Work Phone: Start: 09-09-2024 End: 44-83-4184kdscrskcuzUrlhafol Ball DO Work Phone: [facility] Work Phone: Start: 08-31-2024 End: 00-92-4995Mnpqnrhqh encounterHeladio Pineda MD Work Phone: [facility] CentertologyComment on above:Orders; AppointmentStart: 08-22-2024 End: 94-73-3474Ypveap outpatient visit 25 minutesAntonio Steele MD Work Phone: [facility] CenterComment on above:Persistent atrial fibrillation (Multi) (Primary Dx); Multi-vessel coronary artery stenosis; Status post aorto-coronary artery bypass graft; Mixed hyperlipidemia; Dilated aortic root (CMS-HCC); Cardiomyopathy, ischemic; Presence of Watchman left atrial appendage closure device; BMI 32.0-32.9,adult; Never smoked cigarettesStart: 08-22-2024 End: 37-53-6069arrpdpcyerFRRAGDF Medical Center [facility] AmbulatoryStart: 08-19-2024 End: 63-78-0266xipatvdbtoYimryowc Ball DO Work Phone: [facility] Work Phone: Start: 08-19-2024 End: 49-48-7781Ekghxvi encounter procedureBenjamin Ball DO Work Phone: [facility] GroupY[facility] Work Phone: Start: 92-94-1005Fvu-patient / Non-visitBenjamin Ball DO Work Phone: [facility] Physician [facility] Work Phone: Start: 87-58-8814Yhv-patient / Non-visitBenjamin Ball DO Work Phone: [facility]ician [facility] Work Phone: Start: 08-11-2024 End: 35-07-7695auczpgmbpxChqezyq AkilFacility:[facility] Start: 08-11-2024 End: 20-88-4595Pkmhcqanoa and management of inpatientBenjamin Ball DO Work Phone: [facility] [place] [facility] Work Phone: Start: 94-47-2844zuwvuyovfkd encounterBenjamin Ball DO Work Phone: [facility] Work Phone: Start: 08-06-2024 End: 35-99-6833eftaamlfjhEijakcai Ball DO Work Phone: [facility] Work Phone: Start: 08-06-2024 End: 38-20-8723Edvjsqu encounter procedureBenjamin Ball DO Work Phone: [facility] Physician [facility] Work Phone: Start: 08-04-2024 End: 53-78-6914Zqyvfnl encounter procedureBenjamin Ball DO Work Phone: [facility] Physician [facility] Work Phone: Start: 08-04-2024 End: 77-50-5094jqvjdgjotiQsvnlofo Ball DO Work Phone: [facility] Work Phone: Start: 08-01-2024 End: 23-88-2546Ldoarkusy department patient visitBenjamin Ball DO Work Phone: [facility]-Emergency Room Work Phone: Start: 07-30-2024 End: 73-45-3905yzvdgeyinjBapiqgka Ball DO Work Phone: [facility] Work Phone: Start: 07-30-2024 End: 69-91-7033Ipermnq encounter procedureBenjamin Ball DO Work Phone: [facility] Work Phone: Start: 07-07-2024 End: 98-93-9441Jqnidkrvh encounterHeladio Pineda MD Work Phone: RheumatologyComment on above:ResultsStart: 07-01-2024 End: 52-74-3861pwoklfkhczTrvfvlde Ball DO Work Phone: [facility] Work Phone: Start: 07-01-2024 End: 73-06-8939Zjrxurt encounter procedureBenjamin Ball DO Work Phone: [facility] Work Phone: Start: 90-41-7704Dns-patient / Non-visitBenjamin Ball DO Work Phone: [facility] Work Phone: Start: 06-30-2024 End: 33-23-9141jcjwgougfzNRGDZHIR TSAIFacility:[facility] Hospitaltart: 06-30-2024 End: 21-98-0378Jwyrrjy encounter procedureHeladio Pineda MD Work Phone: RheumatologyComment on above:PMR (polymyalgia rheumatica) (HCC) (Primary Dx); Elevated LFTs; Anemia of chronic disease; Elevated sed rate; Elevated C-reactive protein (CRP); Vitamin D deficiency; Hyperuricemia; Idiopathic chronic gout of multiple sites without tophus; Secondary osteoarthritis of multiple sites; Pseudogout involving multiple joints; 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; Chronic pain of both knees; CHENCHO positive; Bilateral hand pain; Bilateral hand swelling; Bilateral arm weakness; Leg weakness, bilateral; Rotator cuff arthropathy of left shoulder; Long-term use of high-risk medicationStart: 06-13-2024 End: 69-39-7891Ojfpyxqbul hospital visit by Filemon Haquehc[address] [place], [place] [address]Comment on above:Atrial fibrillation, unspecified type (Multi)Start: 06-13-2024 End: 12-52-8428ldzwvkttqyUSAJPULake County Memorial Hospital - Westtart: 05-29-2024 End: 15-74-9271Xgocjyh encounter procedureBeesautimi Brower DO Work Phone: [facility] [place] Work Phone: Start: 05-29-2024 End: 29-06-6514wkjzfjouxtZwzanvsl Ball DO Work Phone: [facility] Work Phone: Start: 05-02-2024 End: 11-50-0624edawtvprouFlhljsjvgSouthern [facility] Center Work Phone: Start: 05-02-2024 End: 74-17-8560Unumcju encounter procedureF[facility] Work Phone: Start: 53-84-0021Zzr-patient / Non-visitF[facility] Work Phone: Start: 04-02-2024 End: 38-83-6842WzcusdWftmrfHernandez Velasco MD Work Phone: [facility] CardiologyComment on above:Med RefillStart: 03-17-2024 End: 98-55-8801Mpfykse encounter procedureFormerly [facility], [facility] Hospitalriver Physician GroupAd[facility] Work Phone: Start: 02-18-2024 End: 59-67-4790rzzngxlkiaAueizear Ball DO Work Phone: [facility] Work Phone: Start: 02-18-2024 End: 59-43-6452Zzmwflx encounter procedureBejoseloselect specialty hospital [facility] Inocente DO Work Phone: [facility]Mer[facility] Work Phone: Start: 02-14-2024 End: 97-20-2022Uyzpoa outpatient visit 25 minutesMonanci Steele MD Work Phone: uh [facility] HospitalComment on above:Persistent atrial fibrillation (Multi) (Primary Dx); Status post aorto-coronary artery bypass graft; Presence of Watchman left atrial appendage closure device; Multi-vessel coronary artery stenosis; Mixed hyperlipidemia; Cardiomyopathy, ischemic; Dilated aortic root (CMS-HCC); Never smoked cigarettes; BMI 35.0-35.9,adultStart: 02-14-2024 End: 98-98-4742mehvukocvsVCLZHXVGreat Lakes Health System AmbulatoryStart: 02-12-2024 End: 30-14-0015bmtzbuwafoGV Vitaliy Inocente Work Phone: [facility] Work Phone: Start: 02-12-2024 End: 98-28-2484Mbkoljt encounter procedureDO Vitaliy Brower Work Phone: [facility] Physician [facility] Work Phone: Start: 01-29-2024 End: 57-58-9499Dyorlndpap and management of inpatientScatie Kowalski MD Work Phone: uh [facility] HumphreyComment on above: Atrial fibrillation, unspecified type (Multi) (Primary Dx); Preoperative examination; Presence of Watchman left atrial appendage closure deviceStart: 01-29-2024 End: 05-10-0597Fxxnvdgufqzak examination Kai Kowalski MD Work Phone: [facility] Work Phone: Start: 01-24-2024 End: 79-39-5911ktvlvnpzorZW Vitaliy Brower Work Phone: [facility] Work Phone: Start: 01-24-2024 End: 21-14-5082Auebdpn encounter procedureDO Vitaliy Brower Work Phone: [facility] [place] Work Phone: Start: 26-63-6522Cuo-patient / Non-visitDO Vitaliy Brower Work Phone: [facility] Work Phone: Start: 43-15-1561Leb-patient / Non-visitDO Vitaliy Brower Work Phone: [facility] Work Phone: Start: 12-31-2023 End: 51-02-1521Rxqomuqkj to same day surgery centerDO Vitaliy Brower Work Phone: [facility] Work Phone: Start: 12-31-2023 End: 02-59-9740pgsobrkkeeXK Vitaliy Brower Work Phone: [facility] Work Phone: Start: 12-19-2023 End: 84-17-8591Tvqyum outpatient new 45 minutesBird Kowalski MD Work Phone: [facility] HospitalComment on above: 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 (Multi) (Primary Dx); Persistent atrial fibrillation (Multi)Start: 12-19-2023 End: 88-90-0777sgcuxnzhilQMCBIV J [facility] Centertart: 12-13-2023 End: 20-12-5315NgkycgPsbzmujf Tsai MD Work Phone: RheumatologyComment on above:Refill RequestStart: 98-73-6816Zzx-patient / Non-visitDO Vitaliy Brower Work Phone: [facility] GroupShrin[facility] Professional [facility] Work Phone: Start: 11-19-2023 End: 17-96-5196othxscnuozRD Vitaliy Brower Work Phone: [facility] Work Phone: Start: 11-19-2023 End: 67-50-1860Rprtbosgs for general adult medical examination without abnormal findingsDO Vitaliy Brower Work Phone: [facility] Systemtart: 11-19-2023 End: 43-22-5083Bqphjqu encounter procedureDO Vitaliy Brower Work Phone: [facility] GroupY[facility] Work Phone: Start: 10-18-2023 End: 42-81-7912Ifrbts outpatient visit 25 minutesMonanci Steele MD Work Phone: [place]Comment on above:Persistent atrial fibrillation (Multi) (Primary Dx); Status post aorto-coronary artery bypass graft; Mixed hyperlipidemia; Cardiomyopathy, ischemic; Multi-vessel coronary artery stenosis; BMI 35.0-35.9,adult; Never smoked cigarettesStart: 10-02-2023 End: 25-05-9801mujrflsrxqII Vitaliy Brower Work Phone: [facility] Work Phone: Start: 10-02-2023 End: 84-86-2748Ynksbsx encounter procedureDO Vitaliy Brower Work Phone: [facility] GroupR[facility] Work Phone: Start: 09-19-2023 End: 77-27-1519jerxyfxvfyGXIEZH BOGDANRNot AvailableStart: 11-21-2320Xpgvqrqww encounterHeladio Pineda MD Work Phone: RheumatologyComment on above:ResultsStart: 09-07-2023 End: 18-54-5384vydhhgnysxYF Vitaliy Brower Work Phone: [facility] Work Phone: Start: 09-07-2023 End: 63-11-9147Tmvctau encounter procedureDO Vitaliy Brower Work Phone: [facility] Work Phone: Start: 02-19-0478Vli-patient / Non-visitDO Vitaliy Brower Work Phone: [facility] Work Phone: Start: 71-52-0261ImvjogBbodhggb Tsai MD Work Phone: RheumatologyComment on above:Refill RequestStart: 12-00-3136Xai-patient / Non-visitDO Vitaliy Brower Work Phone: [facility] Work Phone: Start: 08-30-2023 End: 93-58-1972Johohlzcpd and management of inpatientDO Vitaliy Brower Work Phone: [facility] [place] [facility] Work Phone: Start: 08-16-2023 End: 68-36-1981Fxlfchyxzjmv / ancillary services managementJaAdventHealth Fish MemorialComment on above: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 (Multi)Start: 08-02-2023 End: 09-96-8364Kmhvyspnt to same day surgery centerDO Vitaliy Brower Work Phone: [facility]-Electrodiagnostics Work Phone: Start: 08-02-2023 End: 53-14-1812srvqwcggzhDP Vitaliy Brower Work Phone: [facility] Work Phone: start: 07-27-2023 End: 63-10-6912Wdlaii outpatient new 60 minutesMonanci Steele MD Work Phone: uh [facility] HospitalComment on above:Persistent atrial fibrillation (Multi) (Primary Dx); Multi-vessel coronary artery stenosis; Cardiomyopathy, ischemic; Mixed hyperlipidemia; 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 (Multi); Status post aorto-coronary artery bypass graft; 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; BMI 35.0-35.9,adultStart: 85-70-3987Spzcceuaa encounterHeladio Pineda MD Work Phone: [facility] CentermatologyComment on above:ResultsStart: 07-05-2023 Non-patient / Non-visitDO Vitaliy Brower Work Phone: [facility] Physician GroupShriners [facility] For Children Professional [facility] Work Phone: Start: 90-12-2126Zcmiqytps encounterHeladio Pineda MD Work Phone: [facility] CentermatologyComment on above:Results; OrdersStart: 06-29-2023 End: 37-68-5956wuztwxwiiaOY Vitaliy Brower Work Phone: [facility] Work Phone: Start: 06-29-2023 End: 89-64-6337Gnbngty encounter procedureDO Vitaliy Brower Work Phone: [facility] Physician GroupY[facility] Work Phone: Start: 30-39-8200hxcbjwgoamLIFLEJN PROVIDER Facility:Centervilletart: 06-28-2023 End: 05-07-5757Eptsnhndbw hospital visit by Spike Trevino [facility] RadiologyComment on above: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, T38.0X5A]Start: 06-20-2023 End: 93-34-8076Kkispds encounter procedureDO Vitaliy Brower Work Phone: [facility] GroupROCKLAND PS[facility] Work Phone: Start: 78-64-0231Miykivajp encounterKamille Villalba CardiologyStart: 06-12-2023 End: 47-04-9626htjvumuwzqXJTNGUU B PATELProOhiohealth [facility] Hospital HospitalStart: 16-78-8159Hlfiksxph encounterMelroopa Juarez Physicians Cardiology Comment on above:EP Surgery ( Pt Education)Start: 06-06-2023 End: 37-15-9537Leaawnk encounter procedureDO Vitaliy Brower Work Phone: [facility] Work Phone: Start: 06-04-2023 End: 58-69-3548kcfhazjoqzAKTYDN D GRANDEProMedica Anaheim General Hospitaltart: 06-04-2023 End: 17-24-5885Fwocnl outpatient visit 40 minutesRobedwar Velasco MD Work Phone: [facility] Physicians CardiologyComment on above: Persistent atrial fibrillation (CMS-HCC) (Primary Dx); Coronary artery disease involving [place] coronary artery of su[place] heart without angina pectorisStart: 20-00-7311Bntxmpflm encounterMelroopa Juarez Physicians CardiologyComment on above:EP Surgery (CDVN)Start: 55-52-6852Blt- patient / Non-visitDO Vitaliy Brower Work Phone: [facility] Work Phone: Start: 62-21-4538Cdaotvonc encounterMelinda Gomes CMAPremier Health Upper Valley Medical Centerca Physicians CardiologyStart: 05-21-2023 End: 92-74-7213aoyclvbitjAE Vitaliy Brower Work Phone: [facility] Work Phone: Start: 05-21-2023 End: 15-40-5277Bdvzdwr encounter procedureDO Vitaliy Brower Work Phone: [facility] [place] Work Phone: Start: 05-21-2023 End: 65-50-8277Xxckqbp encounter procedureDO Vitaliy Brower Work Phone: [facility] [place] [facility] Start: 05-21-2023 End: 58-33-9049vagtuexltuYG Vitaliy Brower Work Phone: [facility] Work Phone: Start: 17-03-7184Ruioiw outpatient visit 15 minutes Melinda OmariPal Abdi OrthopedicsStart: 85-56-1054Bilbmoqln encounter Sarai Mendez IIFPG Organ OrthopedicsStart: 05-18-2023 End: 18-71-3276ouigplpusiElwnchvf Ball Other [employer] Other Start: 18-88-0535Nojboooya encounterBeesautimi BallFPG [facility] ClinicStart: 13-74-7448Byokbu outpatient visit 15 minutesRobedwar Andrea [facility] OrthopedicsStart: 05-16-2023 End: 70-30-3365rurayglzepRP Vitaliy Ball Work Phone: [facility] Work Phone: Start: 05-16-2023 End: 94-22-9312Jjoruok encounter procedureDO Vitaliy Brower Work Phone: [facility] [place] [facility] Start: 05-07-2023 End: 28-03-8597griwrxaauyUrkjv Bailey Other [facility] CAPPTURE Other Start: 97-09-8066Nfcigv outpatient visit 25 minutes Sukhjinder MontesinosFPG [facility] OrthopedicsStart: 05-07-2023 End: 26-06-3518Hqswvds encounter procedureDO Vitaliy Brower Work Phone: [facility] Group-Start: 05-02-2023 End: 03-70-5800knzuviqvykWmabikir Ball Other [employer] Other Start: 85-00-1603Fkwixl outpatient visit 15 minutes Vitaliy BallFPG [facility] ClinicStart: 05-02-2023 End: 65-19-7893Vypxmjp encounter procedureDO Vitaliy Brower Work Phone: [employer] [facility]-Start: 04-18-2023 End: 15-77-1720Pmjksmjdl department patient visitTHERESA ALFARO [facility] Hospitaltart: 69-12-2671Rgpxxjxin encounterPamela Jeny Krishnamurthy Physicians CardiologyStart: 04-12-2023 End: 81-82-1516egvlypmewyLzkryafx Ball Other [employer] Other Start: 34-74-8917Rllcst outpatient visit 15 minutes Vitaliy Brower Medical ClinicStart: 66-13-4520Bcrkljr encounter procedure DO Vitaliy Brower Work Phone: [employer] [facility]-Start: 04-11-2023 End: 93-14-2537eenqpmdqtiMlizpm [place] Other [employer] Other Start: 36-18-7596Xsglac follow up visit related to original pxRobert Andrea IIFPG [facility] OrthopedicsStart: 04-06-2023 End: 89-03-9914logbmtkonfHurgvwao Ball Other [employer] Other Start: 39-64-2366Lxhpphvkc encounterBenjamin BallFPG [facility] ClinicStart: 04-05-2023 End: 92-95-4227zbxbapwbgfXvyrqypg Ball Other [employer] Other Start: 29-93-2065Bnowkn outpatient visit 15 minutes Vitaliy Brower Medical ClinicStart: 04-05-2023 End: 72-25-6974Gxdaaog encounter procedureDO Vitaliy Brower Work Phone: [facility] Work Phone: Start: 74-83-9270Wfynvt follow up visit related to original pxRobert [place] IIFPG [facility]opedicsStart: 03-29-2023 End: 29-66-2629gmxoritwjjJM Vitaliy Brower Work Phone: [facility] Work Phone: Start: 03-29-2023 End: 30-98-5889Ipyjaqa encounter procedureDO Vitaliy Brower Work Phone: [facility] [place] [facility] Start: 03-15-2023 End: 25-87-6256fvtvzalaigEhurv Bailey Other [employer] Other Start: 89-26-1386Mkyzpe outpatient visit 25 minutes Sukhjinderdesire MontesinosFPG [facility] OrthopedicsStart: 72-11-9457Mectcj follow up visit related to original pxJennifer KearneyFPG [facility] OrthopedicsStart: 03-15-2023 End: 66-89-0230Ufqscex encounter procedureDO Vitaliy Brower Work Phone: [facility] Work Phone: Start: 03-12-2023 End: 36-55-1687mpawudrnluUrhvvn Andrea II Other [employer]PT[employer] Other Start: 06-86-8230Pdowvylel encounterRobert [place] II FPG [facility] OrthopedicsStart: 03-07-2023 End: 78-00-1450kpqasbrdcrQktfinzt Ball Other [facility] CAPPTURE Other Start: 83-09-7704Xkofor follow up visit related to original pxRobert [place] IIFPG [facility] OrthopedicsStart: 74-96-0020Bkxhvyoww encounterBenjamin BallFPG [facility] Medical ClinicComment on above:ResultsStart: 03-05-2023 End: 91-03-4971ghazvbpwqeOzeosilc Ball Other [employer] Other Start: 03-05-2023 End: 51-73-1912Zyvgrhz encounter Nora Pineda MD Work Phone: RheumatologyComment on above:PMR (polymyalgia rheumatica) (HCC) (Primary Dx); Elevated sed rate; Elevated C-reactive protein (CRP); Idiopathic chronic gout of multiple sites without tophus; Pseudogout involving multiple joints; Secondary osteoarthritis of multiple sites; Rotator cuff arthropathy of left shoulder; Pain in right hip; assisted current use of 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; CHENCHO positive; Chronic pain of both knees; Bilateral hand painStart: 99-37-1447Ksjrbzgwx encounterBejuany Brower Medical ClinicStart: 86-62-8526NnvnoqYbsxpmaw Tsai MD Work Phone: RheumatologyComment on above:Refill RequestStart: 02-28-2023 End: 66-87-0875nmbiberwisZisqgrnt [place] Other [place] [employer] Other Start: 90-22-5207Drrfzd follow up visit related to original Rhona VerduzcoNATALIEPal Abdi OrthopedicsStart: 02-16-2023 End: 30-48-2769zybpcngnooRhnppb [place] Other [facility] CAPPTURE Other Start: 99-07-8850Nywselzey encounterRobert Andrea II WILIAM [facility]er Medical ClinicStart: 97-78-3523Zhtilbkgi encounterBenrigoberto Brower Medical ClinicStart: 02-13-2023 End: 52-82-9291Btgcvdqeu to same day surgery [place] plainsDO Vitaliy Brower Work Phone: [facility] HospitalStart: 02-13-2023 End: 25-60-6848wtqjdbpqszOZ Benjamin Ball Work Phone: [facility] Work Phone: Start: 02-12-2023 End: 39-09-5040ufjokieltmGfcfu Bailey Other [employer] Other Start: 70-69-9234Mgtdveeyi encounterKesaida MontesinosFPG [facility]opedicsStart: 02-06-2023 End: 49-65-6913zuhrwamxsrAxpler Andrea II Other [employer] Other Start: 80-71-9484Iafplwowa encounterRobert Andrea II F[facility]icsStart: 02-02-2023(Prolonged) Prolonged ServicesRobert [place] IIFPG [facility]opedicsStart: 02-02-2023 End: 42-92-9284usfhzgjhgwTaayez Andrea II Other [employer] Other Start: 01-31-2023 End: 53-01-6671agwkhprvhlYgixhu [place] Other [employer] Other Start: 71-63-6481Tvsnyhv encounter procedureRobert [place] IIFPG [facility]opedicsStart: 01-26-2023 End: 10-93-4954qslmglvictEU Vitaliy Ball Work Phone: [facility] Work Phone: Start: 01-26-2023 End: 85-80-5743Vyfzfka encounter procedureDO Vitaliy Ball Work Phone: [facility]-Yestkk[facility] Testing Work Phone: Start: 01-24-2023 End: 65-36-6271hvgsqkeltuNnrevdlj Ball Other [employer] Other Start: 65-72-7430Nprgte outpatient visit 15 minutes Vitaliy Brower Medical ClinicStart: 91-77-3087Ediweyxcd encounterHeladio Pineda MD Work Phone: RheumatologyComment on above:ResultsStart: 01-05-2023 End: 76-36-0245Fiykrkp encounter procedureHeladio Pineda MD Work Phone: RheumatologyComment on above:PMR (polymyalgia rheumatica) (HCC) (Primary Dx); Elevated LFTs; Anemia of chronic disease; Elevated sed rate; Elevated C-reactive protein (CRP); Vitamin D deficiency; Vitamin B12 deficiency; Hyperuricemia; Screening-pulmonary TB; HyperCKemia; Elevated aldolase level; Steroid-induced osteoporosis; Pseudogout involving multiple joints; Idiopathic chronic gout of multiple sites without tophus; Secondary osteoarthritis of multiple sites; Bilateral hand pain; Rotator cuff arthropathy of left shoulder; Pain in right hip; assisted current use of 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; CHENCHO positive; Bilateral hand swellingStart: 01-02-2023 End: 43-46-2078tnlviwgimyZecyzkzb Ball Other [employer] Other Start: 27-68-7168Yuupripgx for other preprocedural examinationBenrigoberto Brower Medical ClinicStart: 12-99-8662Wdcwgk outpatient visit 25 minutesBejoselorigoberto [facility]er Medical ClinicStart: 12-26-2022 End: 78-99-4236sjaekrchdmUtsdwyaj [place] Other [employer] Other Start: 90-21-8935Tqtxbh outpatient visit 15 minutes Melinda Friasy OrthopedicsStart: 12-20-2022 End: 91-78-5548irmtwfrqliAvxkxdsu Ball Other [employer] Other Start: 61-93-5549Hltodlros encounterBenrigoberto Brower Medical ClinicStart: 12-04-2022 End: 31-80-7924nbvfsqjgfjMrepolwy Ball Other [employer] Other Start: 88-08-5787Qkiqeaizv encounterBenjamin BallFPG [facility] ClinicStart: 11-23-2022 End: 04-65-9451hxfocuqijbLzccgzdr Ball Other [facility] CAPPT[facility] Other Start: 72-71-8959Blkescnwb encounterBenjamin BallFPG [facility] ClinicStart: 11-22-2022 End: 74-79-2045tzqayxdokoWpxouo [place] Other [facility] CAPPT[facility] Other Start: 13-35-2594Ggcrhbwag encounterRobert [place] [facility]icsStart: 11-21-2022 End: 47-96-4730hgmdcyfxoeTzrurtjw [place] Other [facility] CAPPT[facility] Other Start: 96-67-5913Oaptsy outpatient visit 15 minutes Melinda OmariPal Abdi OrthopedicsStart: 11-13-2022 End: 05-84-5848Ysljxji encounter procedureDO Vitaliy Ball Work Phone: [facility] [place] Work Phone: Start: 11-13-2022 End: 12-53-2409svovaqojywKO Vitaliy Ball Work Phone: [facility] Work Phone: Start: 11-06-2022 End: 74-60-4872qhgvweantuMrweytbx Ball Other [facility] CAPPT[employer] Other Start: 12-59-2401Ihrdhlckr encounterBenjamin BallFPG [facility] ClinicStart: 11-01-2022(Procedure) ShortThomas FelterErie [facility] CenterStart: 11-01-2022 End: 08-61-9850spceigvadwIogcsg Felter Other [employer] Other Start: 10-26-2022 End: 77-30-2471qkitcpxjovOK Vitaliy Brower Work Phone: [facility] Work Phone: Start: 10-26-2022 End: 91-45-4042Wzhlqxk encounter procedureDO Vitaliy Brower Work Phone: [facility] Start: 10-25-2022 End: 91-50-8650vhetnfzjysLulisogh Ball Other [employer] Other Start: 00-75-1773Rkawku outpatient visit 15 minutes Vitaliy BallFPG Ball Medical ClinicStart: 10-11-2022 End: 56-90-4572Goqfjibau department patient visitDO Vitaliy Brower Work Phone: [facility] Work Phone: Start: 10-05-2022 End: 24-56-9716ffzkorpcsmHvruvu [place] Other [employer] Other Start: 45-19-0910Qgwvgyqmw encounterRobert [place] II [facility]icsStart: 10-04-2022 End: 54-55-9471ixhrbpsppqTlazdtte Ball Other [employer] Other Start: 23-89-6344Rkivwqtqk encounterBenjamin BallFPG [facility] ClinicStart: 10-03-2022 End: 94-28-3680vnszztiswaKkrrinmj Ball Other [employer] Other Start: 23-08-1814Kmehbz outpatient visit 15 minutes Vitaliy BallFPG [facility] ClinicStart: 87-18-3414Oyfysgmbu encounterThomas FelterFPG [facility] OrthopedicsStart: 10-02-2022 End: 74-21-8066ayyctcorwiHK Vitaliy Brower Work Phone: [facility] Work Phone: Start: 10-02-2022 End: 76-03-4734Djyhdxn encounter procedureDO Vitaliy Brower Work Phone: [facility] [address] Work Phone: Start: 09-27-2022 End: 81-86-8920koplkxvqdgGfjgsbvm Ball Other [employer] Other Start: 07-13-0913Vsuitvplu encounterBenjamin BallFPG [facility] Medical ClinicStart: 78-33-1849xggkgfcuexMU VITALIY BALLFacility:S3Assls: 08-09-2022 End: 62-38-9586pxhdjfaeurIncibshz Ball Other [employer] Other Start: 36-01-3404Ellmgp outpatient visit 15 minutes Vitaliy BallFPG [facility] ClinicStart: 08-07-2022 End: 38-91-1824qphsvwkczpEesehz Felter Other [employer] Other Start: 72-92-5149Sjonhr outpatient visit 15 minutes Jonathan SamanoFPPal [facility] Management [place] CreekStart: 08-02-2022 End: 77-51-1685dnpqznsjzgOP Vitaliy Brower Work Phone: [facility] Work Phone: Start: 08-02-2022 End: 90-68-9064Dtayorg encounter procedureDO Vitaliy Brower Work Phone: [facility] [place] [facility] Start: 08-01-2022 End: 59-19-5762nwtgdkqvioHfkzvtpg Ball Other [employer] Other Start: 67-67-3251Qvajjdmsl encounterBenjamin BallFPG [facility] ClinicStart: 07-31-2022(Procedure) ShortThomas FelterErie [facility] CenterStart: 07-31-2022 End: 66-34-3775xoxzyuqiflDX VITALIY [facility] CenterMoneysoft CAPPTURE Other Start: 07-92-2074Ujnkyrged encounterThomas FelterFPG [facility] [place] CreekStart: 07-29-2022 End: 67-35-8279pruamyjaddEU VITALIY BROWERFacility:K6Kkuhh: 07-28-2022 End: 47-47-5470llbbtmovbrEtaedsmq Ball Other [employer] Other Start: 14-41-5425Jdmiss outpatient visit 25 minutes Vitaliy BrowerNATALIEPal Brower Medical ClinicStart: 07-04-2022 End: 55-83-8200gdotltoivbWduucl Olexa Other [employer] Other Start: 35-71-5574Lkqmwd outpatient visit 25 minutes Jonathan OlexaFPG [facility]icsStart: 07-03-2022 End: 33-58-5696hedrxdaxqtYbwqtdby [place] Other [employer]Money[employer] CAPPTURE Other Start: 75-53-2309Nylapyaar encounterMelinda Verduzco [facility]icsStart: 06-29-2022 End: 64-33-5503sqblkduxbsUD Vitaliy Brower Work Phone: [facility] Work Phone: Start: 06-29-2022 End: 10-72-6960Ijtqfmr encounter procedureDO Vitaliy Brower Work Phone: [facility] [place] Work Phone: Start: 06-09-2022 End: 76-30-0925kdpxqrmkwkFbsuxktb Ball Other [employer] Other Start: 98-30-5114Xtrieqgaf encounterBenrigoberto Brower Medical ClinicStart: 06-05-2022 End: 94-17-9551phvarnucieYemjmk Felter Other [employer] Other Start: 10-57-6685Dvmqxu outpatient visit 15 minutes Jonathan FelterFPG [facility] [place] CreekStart: 05-29-2022 End: 09-41-9619ysfwyqdsyhLcpdtsqu Ball Other [employer] Other Start: 82-10-7373Qeogjc outpatient visit 10 minutes Vitaliy [facility] ClinicStart: 05-23-2022 End: 15-64-9811mbmartctjkRbpmcbva Ball Other [employer] Other Start: 27-23-4920Zvyduq outpatient visit 15 minutes Vitaliy [facility] ClinicStart: 54-44-7298Ktnmdywbr encounterBenrigoberto Brower Medical ClinicStart: 05-22-2022 End: 87-71-6616Znlkunjse department patient visitDO Vitaliy Brower Work Phone: [facility] Work Phone: Start: 05-01-2022(Procedure) ShortThomas FelterErie Shores Surgery CenterStart: 05-01-2022 End: 20-04-6718rqhxntdaggXjhtsh Felter Other [employer] Other Start: 04-24-2022(Procedure) ShortThomas FelterErie Shores Surgery CenterStart: 04-24-2022 End: 92-57-4513vppybhmthcPhcgcz Felter Other [employer]Money[employer] CAPPT[employer] Other Start: 44-21-8456Nfmiox outpatient visit 25 minutes Jonathan FelterFPG [facility] [place] CreekStart: 04-12-2022 End: 42-68-9993hkinxapyzbRO Vitaliy Brower Work Phone: [facility] Work Phone: Start: 04-12-2022 End: 33-11-3806Gnexrnn encounter procedureDO Vitaliy Brower Work Phone: [facility] [place] [facility] Start: 03-20-2022(Procedure) ShortJonathan FelterErie Shores Surgery CenterStart: 03-20-2022 End: 27-24-3422tbnihhbiywBjhobs Felter Other [employer] Other Start: 03-08-2022 End: 78-45-6747dzqpfdoznyIfsufg Felter Other [employer] Other Start: 48-82-9971Sumqvt outpatient visit 25 minutes Jonathan Valdez [facility] [place]Start: 02-22-2022(Procedure) Short Jonathan FelterErie [facility] CenterStart: 02-22-2022 End: 93-15-0714uyqilkofrbYrojcf Felter Other [employer] Other Start: 15-84-1864Fiflzf outpatient new 45 minutes [facility]io [facility]di OrthopedicsStart: 02-15-2022 End: 84-73-3622fyhdmqwfqjNL Vitaliy Brower Work Phone: [facility] Work Phone: Start: 02-15-2022 End: 35-26-2024Wtqrfra encounter procedureDO Vitaliy Brower Work Phone: [facility] Start: 02-13-2022 End: 46-23-4417ckpixrxfhnSiocdo Felter Other [employer] Other Start: 18-00-9959Ukgihu outpatient visit 25 minutes Jonathan FelterFPG [facility] [place] CreekStart: 12-26-2021 End: 81-01-1126Ngupzch encounter procedureDO Vitaliy Qbaka Phone: [facility] CampusStart: 11-30-2021 End: 82-70-3433cbocizejukNO VITALIY BROWERFacility:M2Zdeko: 58-10-3895Hpp- procedure evaluation checkThomas Felter Other [employer] Other Start: 09-28-2021 End: 01-51-6731dbgwtgarefVspcxq [place] II Other [employer] Other Start: 14-23-6175Pnxpqr follow up visit related to original pxRobert [place] IIFPG [facility]icsStart: 09-28-2021 End: 57-73-9123Dmqboqg encounter procedureDO Vitaliy [employer] Phone: [facility] Start: 09-12-2021 End: 51-98-6926hlthkzchovCwsybpva [place] Other [employer] Other Start: 85-75-3899Ucvkxc outpatient visit 15 minutes Melinda VerduzcoFPG [facility] OrthopedicsStart: 08-17-2021(Post-Op) Post-OpRobert Andrea IIFPG [facility]icsStart: 08-17-2021 End: 86-01-1676zloeaohignFgejla [place] Other [employer] Other Start: 07-20-2021(Post-Op) Post-OpRobert [place] II [facility]icsStart: 07-20-2021 End: 34-78-9972lhpcoaddtvXjqbas [place] Other [employer] Other Start: 06-24-2021(Prolonged) Prolonged ServicesRobert Andrea IIFPG [facility]icsStart: 06-24-2021 End: 43-54-0852jjyxojwxftVkvydr [place] II Other [employer] Other Start: 06-17-2021 End: 47-60-8291cpptkfwbpzAzhfdh [place] II Other [employer] Other Start: 19-22-5647Lfcuib outpatient visit 25 minutes Sarai Andrea IIFPG [facility]opedicsStart: 81-73-2042Vdsur health examinationThomas Felter Other [employer] Other Start: 03-25-2021 End: 65-26-9700cyotgzshgwUskbsu [place] Other [employer] Other Start: 13-14-0913Vrcklbsiz encounterRobert Andrea II [facility]icsStart: 03-24-2021 End: 12-91-5798titivhczlvSpjzqd Felter Other [employer] Other Start: 16-54-6213Dyvovzekr encounterThomas FelterFPG [facility]opedicsStart: 02-22-2021 End: 04-08-3578bgilgkpwcsXvbvob Felter Other [employer] Other Start: 03-30-6872Irzsew outpatient visit 25 minutes Jonathan Valdez [facility] [place]Start: 02-15-2021(Procedure) [facility] CenterStart: 02-15-2021 End: 06-79-5314aezdwhxrwgMsgcux Felter Other [employer] Other Start: 06-75-3738Cbdkkdglx encounterThomas FelterFPG [facility]icsStart: 37-31-4011Iobstr outpatient visit 15 minutesThomas FelterFPG [facility] [place] CreekStart: 99-86-5832wsdtkkpveiGvngyr C Koplas MD Work Phone: radiologyStart: 06-01-2009 End: 16-82-2455Pibaker encounter procedureGenie Hdez MD Work Phone: [facility] Procedures DateProcedureProcedure DetailPerforming ClinicianStart: 02-97-6087Cxyevhicrji timeFrancdeana Adams MD Work Phone: Start: 10-50-2696Wst routine ecg w/least 12 lds trcg only w/o i&rFrancis Chrissy Adams MD Work Phone: Start: 45-21-2450Hwfpm typing serologic rh (d)Jose Antonio Adams MD Work Phone: Start: 11-11-4982Mecwudpmlvkpw metabolic panelFrancdeana Adams MD Work Phone: Start: 48-44-8660Uvyvmzzy screenBenjamin BallComment on above:Result Comment: PERFORMED BY: [place] [address] [place] [address] PATHOLOGIST [employer] RYAN ALMARAZ M.D.Start: 15-23-3524DR pre/post mri xrayBenjamin Ball DO Work Phone: Start: 02-79-6118CFQ of lumbar spine with contrast Vitaliy Ball DO Work Phone: Start: 67-38-8587Zhemk X-ray of right hipBenjamin Ball DO Work Phone: Start: 92-82-9252Q-ray of right knee, three views Vitaliy Ball DO Work Phone: Start: 25-33-1555Oyp routine ecg w/least 12 lds w/i&r Antonio Steele MD Work Phone: Start: 46-55-0919Xlenug-up visitFollow-upMONANCI ARANAIStart: 05-10-8679Lur routine ecg w/least 12 lds w/i&rMchuck Steele MD Work Phone: Start: 95-25-9468Oxkwe X-ray of right hipBenjamin Ball DO Work Phone: Start: 52-02-7345SL of head without contrastBenjamin Ball DO Work Phone: Start: 89-74-0013Jdnfu chest X-rayBenjamin Ball DO Work Phone: Start: 14-27-5200Uetovuqz identified in Blood by CultureBenjamin Ball DO Work Phone: Start: 15-85-9497Xaeur cultureBenjamin Ball DO Work Phone: Start: 96-81-5748HN LHC & COR Angio w/graftsBenjamin Ball DO Work Phone: Start: 91-85-2263Xgvachjs Ball DO Work Phone: Start: 29-34-3479Ydq routine ecg w/least 12 lds w/i&r Antonio Steele MD Work Phone: Start: 38-30-0671Blwauojscnku myocardial perfusion stress studyBenjamin Ball DO Work Phone: Start: 89-57-1124Rbpxkl scan of lower limb veins Vitaliy Ball DO Work Phone: Start: 34-15-1162Qtiiq chest X-rayBenjamin Ball DO Work Phone: Start: 25-43-4136Mmcfc X-ray of left hipBenjamin Ball DO Work Phone: Start: 97-05-6398Xzgbe X-ray of left handBenjamin Ball DO Work Phone: Start: 78-96-6451Yuobd X-ray of left hipBenjamin Ball DO Work Phone: Start: 82-41-4900Dzmu transthorc r-t 2d w/wo m-mode rec f-up/lmtdBrett R Gertrude VOCATIONAL ED INSTRUCTOR-TROUBLE CLERK Work Phone: Start: 61-80-4191Xetv transthorc r-t 2d w/wo m-mode rec f-up/lmtdBrett R Loredo VOCATIONAL ED INSTRUCTOR-TROUBLE CLERK Work Phone: [phone]: 48-34-4701Hlcub metabolic panel calcium total Sammichantelle Loredo VOCATIONAL ED INSTRUCTOR-TROUBLE CLERK Work Phone: [phone]: 96-15-9834Hzwek typing serologic rh (d)Sammi Loredo VOCATIONAL ED INSTRUCTOR-TROUBLE CLERK Work Phone: [phone]: 22-46-5162Nan routine ecg w/least 12 lds trcg only w/o i&rBrett R Loredo VOCATIONAL ED INSTRUCTOR-TROUBLE CLERK Work Phone: [phone]: 40-25-0381To heart contrast eval cardiac structure&morphStevthien Kowalski MD Work Phone: [phone]: 05-60-4762Bgbeqxcpr colonoscopyDO [employer] Work Phone: Start: 78-65-9866UpskobgzxvpBuswgn Filby MD Work Phone: [phone]: 22-14-7142RZ angiography of neck vesselsDO [employer] Work Phone: Start: 29-13-6310Mwttcnmx tomography of abdomen and pelvis with contrastDO [employer] Work Phone: Start: 96-88-5256LO angiography of headDO [employer] Work Phone: Start: 36-37-6558AU of head without contrastDO [employer] Work Phone: Start: 29-21-6801Jhwwp chest X-rayDO [employer] Work Phone: Start: 66-87-6947Gayzdgonk ID (NA Multiplex Assay)DO [employer] Work Phone: Start: 51-86-2322Ycbie culture for bacteria, including anaerobic screenDO [employer] Work Phone: Start: 64-48-7771Xdijiboldlb Panel (PCR)DO [employer] Work Phone: Start: 70-72-4169JQLS-CoV-2, Influenza & RSV (PCR)DO [employer] Work Phone: Start: 25-64-3698Stk routine ecg w/least 12 lds w/i&r Antonio Steele MD Work Phone: Start: 33-46-3168Fqjfaoq of coronary artery bypass graftingStatus post aorto-coronary artery bypass graftMonanci Steele MD Work Phone: Start: 71-31-4796Lqo routine ecg w/least 12 lds w/i&r Antonio Steele MD Work Phone: Start: 06-28-2023 End: 60-80-3177Zet bone density study 1/> sites axial Delvin Pineda MD Work Phone: Start: 47-22-8889Mdecrb-up visitFollow-upRSHIRLEY Orta GRANDEStart: 85-52-3825Tkv routine ecg w/least 12 lds w/i&rRoberpuma Velasco MD Work Phone: Start: 69-21-1952Cngkkz scan of lower limb veinsDO [employer] Work Phone: Start: 50-82-7702G-ray of left kneeDO [employer] Work Phone: Start: 89-76-3716Jpshf X-ray of right hipDO [employer] Work Phone: Start: 62-38-9147Wyscj X-ray of right hipDO [employer] Work Phone: Start: 31-16-7514Tyxrp X-ray of right hipDO Vitaliy Ball Work Phone: Start: 21-50-2500Zrtqv replacement of right hip joint DO Vitaliy Ball Work Phone: Start: 94-33-8909Fywqp X-ray of right hipDO Vitaliy Ball Work Phone: Start: 89-78-3570Npzme X-ray of right hipDO Vitaliy Ball Work Phone: Start: 83-79-5318RS of head without contrastDO Vitaliy Ball Work Phone: Start: 07-88-1726Ygxfr X-ray of right shoulderDO Vitaliy Ball Work Phone: Start: 36-91-4819Zhyqp X-ray of left hipDO Vitaliy Ball Work Phone: Start: 45-09-1015LZN screeningDR VITALIY BALLComment on above:Performed By: #### PSASC #### [facility] [address] [place] [address] Dr. Tracy HubbardStart: 60-91-2738BSS of left shoulderDO Vitaliy Ball Work Phone: Start: 36-66-5115Kdhgb X-ray of left elbowDO Vitaliy Ball Work Phone: Start: 81-95-6475Nuvcc X-ray of left shoulderDO Vitaliy Ball Work Phone: Start: 38-67-8645Jinuv X-ray of right hipDO Vitaliy Ball Work Phone: Start: 78-22-0289Cngbn X-ray of right handDO Vitaliy Ball Work Phone: Start: 58-84-6011YU pre/post mri xrayDO Vitaliy Ball Work Phone: Start: 12-01-1374VEC of cervical spine without contrastDO Vitaliy Ball Work Phone: [phone]: 94-76-8946Ayayy X-ray of left hipDO Vitaliy Ball Work Phone: Start: 14-64-8123Rikshmiom for malignant neoplasm of colonThomas Felter Other Start: 89-49-7435Ifoostenl for malignant neoplasm of prostateThomas Felter Other Start: 24-11-6204Fiityeaofgnw cardiovascular examinationThomas Felter Other Start: 57-53-4720MSUK CNT+DIFF SYN Vitaliy Hdez MD Work Phone: depression screeningThomas Felter Other History of coronary artery bypass graftingStatus post aorto-coronary artery bypass graftAntonio Steele MD Work Phone: History of coronary artery bypass graftingStatus post aorto-coronary artery bypass graftAntonio Steele MD Work Phone: History of coronary artery bypass graftingStatus post aorto-coronary artery bypass graftAntonio Steele MD Work Phone: History of coronary artery bypass graftingStatus post aorto-coronary artery bypass graftAntonio Steele MD Work Phone: History of coronary artery bypass graftingStatus post aorto-coronary artery bypass graftAntonio Steele MD Work Phone: History of operative procedure on kneeThomas Felter Other Screening for malignant neoplasm of prostateThomas Felter Other Plan of Treatment DateCare ActivityDetailAuthorStart: 20-13-8746CJC Vaccine (1 - 1-dose 75+ series)RSV Vaccine (1 - 1-dose 75+ series)[facility]: 12-30-2033 Screening for malignant neoplasm of colonChildren's Hospital of ColumbusStart: 99-22-9404UZwI,Tdap and Td Vaccines (2 - Tdap)DTaP,Tdap and Td Vaccines (2 - Tdap)[facility] Fusion-io SystemStart: 88-08-5197NTqC/Tdap/Td Vaccines (2 - Tdap) DTaP/Tdap/Td Vaccines (2 - Tdap)[facility]: 54-12-1251Slcwk microalbumin profileDTaP,Tdap,Td Vaccine (2 - Tdap)[facility] Hospitaltart: 37-33-2502Mwrgezfq Cancer Screening DiscussionProstate Cancer Screening DiscussionDunlap Memorial Hospitaltart: 64-47-4785Nlmhlssi specific antigen measurementProstate Cancer Screening DiscussionDunlap Memorial Hospitaltart: 07-01-2027 Diabetes ScreeningDiabetes ScreeningDunlap Memorial Hospitaltart: 40-94-4346Wninrubs ScreeningDiabetes ScreeningDunlap Memorial Hospitaltart: 14-53-6111Jgztfmue Screening Diabetes ScreeningDunlap Memorial Hospitaltart: 98-89-6270Vqipzuspzi measurement Creatinine LevelUnTriHealth [facility]: 59-52-2990Dkvrsdmm mellitus screeningDiabetes ScreeningUnTriHealth McCullough-Hyde Memorial Hospital: 86-32-5870Xxvkhrtsn measurementPotassium LevelUnSumma Health Barberton Campus Start: 73-74-1630Avnfyndk ScreeningDiabetes ScreeningProMedica Defiance Regional Hospitalrt: 08-25-2025 End: 31-98-7477Socfhah encounter boauzchze60/19/2026 12:00 PM EDT Office Visit Rheumatology [address] [place] [address] Heladio Pineda MD [address] [place] [address] Follow up for osteoarthritis/PMR/gout in 6-12months RheumatologyComment on above:Follow up for osteoarthritis/PMR/gout in 6-12months Start: 08-18-2025 End: 31-90-7868Bhzhwpm encounter raqtkcxzi43/12/2026 3:20 PM EDT Office Visit [place] [id number] [facility] [address] [place] [address] Antonio Steele MD [address] [facility] [address] [place] [address] [place] [address] [facility]: 63-03-9440UmusvahkhaeomnyuCmwbencnbjatnu [facility]: 06-29-2025 End: 93-10-6486Znjnpdv encounter bpwydeboz81/23/2026 9:00 AM EDT Office Visit Rheumatology [address] [place] [address] Heladio Pineda MD [address] [place] [address] Return for gout/osteoarthritis/pseudogout/low vit fu OV 6-12months.RheumatologyComment on above:Return for gout/osteoarthritis/pseudogout/low vit fu OV 6-12months.Start: 06-27-2025 Screening for osteoporosisBone Density ScanChildren's Hospital of Columbus Start: 66-18-6679Rwlcsjtg mellitus screeningDiabetes ScreeningChildren's Hospital of ColumbusStart: 01-12-2025 End: 87-57-2567Denchvr encounter lmtibaeas68/06/2025 1:00 PM EDT Office Visit [facility] [address] [place] [address] [place] [address] [place] [address] [place] [address] [facility]: 12-22-2024 End: 12-19-0367Lwopjvz encounter tyktjgerq14/15/2025 11:30 AM EDT Office Visit [address] [place] [address] [place] [address] Antonio Steele MD [address] [facility] [address] [place] [address] [place] [address] [facility]: 26-15-3377KitjlgovdUc Health CenterStart: 09-30-4622NbsjesgbpUc Health CenterStart: 29-91-6149ZshaahnmvUc Health CenterStart: 22-07-7568Oxxjrixrplt of Cardiac Rhythm, SingleRestoration of Cardiac Rhythm, [facility] CenterStart: 46-99-8834Qzoyyoiw admission [facility] CenterStart: 44-14-3328DLBJD-19 Vaccine ( season)COVID-19 Vaccine ( season)[facility] Start: 30-04-9994Jfeqxzgga vaccinationUnSumma Health Barberton CampusStart: 12-03-2024 End: 67-06-8115Nrdzm metabolic 2000 panel - Serum or PlasmaBasic Metabolic Panel Lab Routine Multi-vessel coronary artery stenosis Cardiomyopathy, ischemic Exp ected: 12/03/2024 (Approximate), Expires: 11/19/2025[facility] [[email or web address] Service Area Work Phone: Comment on above:Expected: 12/03/2024 (Approximate), Expires: 11/19/2025Start: 11-19-2024 End: 99-04-9711Cvgjsiinkeeju ExternalCardioversion External Cardiac Services Routine Persistent atrial fibrillation (Multi) Expected: 11/19/2024 (Approximate), Expires: 11/19/2026UnSumma Health Barberton Campus Work Phone: Comment on above:Expected: 11/19/2024 (Approximate), Expires: 11/19/2026Start: 08-13-2025Medicare Annual Wellness VisitMedicare Annual Wellness Visit (AWV)[facility] ColumbusStart: 11-07-2024 Influenza vaccinationInfluenza Vaccine (#1)[facility] Start: 43-62-6921Wotep X-ray of right hipXR hip RT min 2V(w/wo pelvis)*[facility] Systemtart: 03-06-1790GD Hip - right 2 ViewsHolzer Health Systemtart: 10-06-2024 End: 493318-arzaxhcrdjxlvr D3 [Mass/volume] in Serum or PlasmaVITAMIN D 25 HYDROXY Lab Routine Vitamin D deficiency Expected: 10/06/2024 (Approximate), Expires: 07/07/2025leveland ClinicComment on above:Expected: 10/06/2024 (Approximate), Expires: 07/07/2025Start: 89-00-7985FtyqhrdooHolzer Health Systemtart: 04-50-1854Yeplgium therapy procedureHolzer Health Systemtart: 09-30-2024 End: 98-88-0484HuxzuMemorial Hospitaltart: 09-30-2024 Hospital admissionHolzer Health Systemtart: 35-87-9255Dsnfzplt to cardiologistHolzer Health Systemtart: 76-78-8661HcwmihcbpHolzer Health Systemtart: 79-20-6033Nhqbfnlj identified in Blood by CultureBlood [facility] - Cantontart: 09-30-2024 End: 70-53-4536Xalxcvz encounter ayrgyzskn96/24/2025 10:30 AM EDT Office Visit [address] [place] [address] [place] [address] Antonio Steele MD [address] [facility] [address] [place] [address] [place] [address] [facility] HealthStart: 20-11-8108WicttqwldHolzer Health Systemtart: 63-08-7333SngtqohtcHolzer Health Systemtart: 77-38-1171Ffubpkdu admissionHolzer Health Systemtart: 09-13-2024 End: 91-62-3615Nydgia-up iwfllqvwh37/07/2025 10:00 AM EDT [facility] [address] [place] [address] Heladio Pineda MD [address] [facility] [place] [address] follow upRheumatologyComment on above:follow upStart: 09-08-2024 End: 91-97-7601ibuxkyttry57/02/2025 10:30 AM EDT Results Only [facility] [address] [place] [address] LABNortEaton Rapids Medical Center LaboratoryComment on above: LABStart: 09-05-2024 End: 25-48-6469Gvsgmspoabnnj ExternalCardioversion External Cardiac Services Routine Persistent atrial fibrillation (Multi) Expected: 09/05/2024 (Approximate), Expires: 08/22/2026[facility] [[email or web address]] Service Area Work Phone: Comment on above:Expected: 09/05/2024 (Approximate), Expires: 08/22/2026Start: 37-89-6994VmjrnfqlxHolzer Health Systemtart: 70-21-3793Omnbywyx to cardiologistHolzer Health Systemtart: 38-98-5713Thjxaktu admissionHolzer Health Systemtart: 08-06-2024 End: 67-07-3442LUO panel - Blood by Automated countCOMPLETE BLOOD COUNT Lab Routine Anemia of chronic disease Expected: 08/06/2024 (Approximate), Expires: 07/07/2025[facility] ClinicComment on above:Expected: 08/06/2024 (Approximate), Expires: 07/07/2025Start: 08-06-2024 End: 78-87-4549Wenznnlymsgsa metabolic 2000 panel - Serum or PlasmaCOMPREHENSIVE METABOLIC PANEL Lab Routine Elevated LFTs Expected: 08/06/2024 (Approximate), Expires: 07/07/2025[facility] Work Phone: Comment on above:Expected: 08/06/2024 (Approximate), Expires: 07/07/2025Start: 08-06-2024 End: 10-06-4506Vlyaa [Mass/volume] in Serum or PlasmaURIC ACID Lab Routine Hyperuricemia Expected: 08/06/2024 (Approximate), Expires: 11/05/2024[facility] ClinicComment on above:Expected: 08/06/2024 (Approximate), Expires: 11/05/2024 Start: 03-51-5123Xysxt X-ray of left hipXR hip LT min 2V(w/wo pelvis)*[facility] Systemtart: 94-74-1154XK Hip - left 2 ViewsHolzer Health Systemtart: 33-70-0221Ausku X-ray of left handXR hand LT min 3V* [facility] Systemtart: 05-21-2309BI Hand - left GE 3 Views [facility] Systemtart: 06-29-2024 End: 06-29-2025 reactive protein [Mass/volume] in Serum or PlasmaC-REACTIVE PROTEIN Lab Routine Elevated sed rate Elevated C-reactive protein (CRP) Expected: 06/29/2024 (Approximate), Expires: 06/29/2025[facility] ClinicComment on above:Expected: 06/29/2024 (Approximate), Expires: 06/29/2025Start: 06-29-2024 End: 70-62-4631Pqkecyjjcxdsg metabolic 2000 panel - Serum or PlasmaCOMPREHENSIVE METABOLIC PANEL Lab Routine Elevated LFTs Expected: 06/29/2024 (Approximate), Expires: 06/29/2025[facility] Work Phone: Comment on above:Expected: 06/29/2024 (Approximate), Expires: 06/29/2025Start: 06-29-2024 End: 30-99-5026Ovurcdobhqu sedimentation rateSEDIMENTATION RATE, WESTERGREN Lab Routine Elevated sed rate Elevated C-reactive protein (CRP) Expected: 06/29/2024 (Approximate), Expires: 06/29/2025[facility] ClinicComment on above:Expected: 06/29/2024 (Approximate), Expires: 06/29/2025Start: 06-29-2024 End: 30-22-5475Epybt [Mass/volume] in Serum or PlasmaURIC ACID Lab Routine Hyperuricemia Expected: 06/29/2024 (Approximate), Expires: 09/28/2024leveland ClinicComment on above:Expected: 06/29/2024 (Approximate), Expires: 09/28/2024 Start: 10-68-9446Lcddz BMI ScreeningAdult BMI ScreeningSelect Medical Specialty [facility] Start: 40-40-9302Alwvbqw ScreeningTobacco ScreeningProGrant Hospital SystemStart: 05-20-2024 End: 76-93-4859Otgomho encounter ppcfaedec92/11/2025 10:30 AM EST Appointment [address] [place], [id number] [facility]: 04-28-2024 End: 78-82-6257Tsyjfdm encounter hvwrsmihn33/20/2025 8:40 AM EST Office Visit [address] [place] [phone] Antonio Steele MD [address] [facility] [address] [place] [address] [facility]: 47-10-7861Tqxgmvm ScreeningTobacco ScreeningNovant Healthtart: 01-01-2025Medicare Advantage Annual Wellness VisitMedicare Advantage Annual Wellness VisitDunlap Memorial Hospitaltart: 03-17-2024 End: 77-07-2844Nazuvas encounter /09/2024 9:00 AM EST Office Visit Rheumatology [address] [place], [place] [id number] Heladio Pineda MD [address] [facility], [facility], [place] [id number] for PMR/osteoarthritis/gout fu OV 6monthsRheumatologyComment on above:for PMR/osteoarthritis/gout fu OV 6monthsStart: 02-14-2024 End: 77-88-5405Ycsex 1996 panel - Serum or PlasmaLipid Panel Lab Routine Mixed hyperlipidemia Expected: 02/14/2024 (Approximate), Expires: 02/13/2025[facility] [[email or web address] Service Area Work Phone: Comment on above:Expected: 02/14/2024 (Approximate), Expires: 02/13/2025Start: 02-14-2024 End: 37-20-9162Rsmypgs encounter ndpgtsrol67/07/2024 2:00 PM EST Office Visit [facility] [address] [phone] Antonio Steele MD 7[address] [facility] [address] [place] [address] [facility] CenterStart: 07-28-4666Qoezo BMI ScreeningAdult BMI ScreeningNovant Healthtart: 54-15-6623FxgxiwkwiHolzer Health Systemtart: 87-40-8898AUXMC-19 Vaccine ( season)COVID-19 Vaccine ( season)[facility]: 94-15-2339TUYII-19 Vaccine ( season)COVID-19 Vaccine ( season)[facility]: 18-19-6025Phdcw-19 Vaccine ( season) Covid-19 Vaccine ( season)[facility] Hospitaltart: 66-80-3927CIZWC-19 Vaccine ( season)COVID-19 Vaccine ( season)[facility]: 32-52-0504Sabtlhgnr vaccinationWilson Health Start: 83-24-6334Sxlgoej referralMadison Health Work Phone: Start: 10-18-2023 End: 17-23-7138Dpmfwud encounter fdptampmm82/11/2024 2:40 PM EDT Office Visit [facility] [address] [facility] [address] [place] [phone] Antonio Steele MD 703 [facility] [address] [place] [address] [facility]: 10-08-2023 End: 63-69-605747439628-ktsogfngxgqpfv D3 [Mass/volume] in Serum or PlasmaVITAMIN D 25 HYDROXY Lab Routine Vitamin D deficiency Expected: 10/08/2023 (Approximate), Expires: 5[facility] Work Phone: Comment on above:Expected: 10/08/2023 (Approximate), Expires: 07/08/2024Start: 10-08-2023 End: 19-72-8396Wefwf [Mass/volume] in Serum or PlasmaURIC ACID Lab Routine Hyperuricemia Idiopathic chronic gout of multiple sites without tophus Expected: 10/08/2023 (Approximate), Expires: 01/07/2024[facility] Work Phone: Comment on above:Expected: 10/08/2023 (Approximate), Expires: 01/07/2024Start: 10-03-2023 End: 58-06-8851Hbrlgmw encounter quwlrcxlo55/26/2024 9:30 AM EDT Office Visit [facility] [address] [facility] [address] [place] [phone] Travis Lucas MD [address] [place] [address] [facility] CardiologyStart: 09-01-2023 [facility]tart: 91-27-0182EjmsrqqueHolzer Health Systemtart: 25-93-2390Wxwigklihct pathogens DNA and RNA panel - Nasopharynx by ROSIE with non-probe detectionHolzer Health Systemtart: 08-30-2023 Hospital admissionHolzer Health Systemtart: 26-25-0695EfkbncikqHolzer Health Systemtart: 00-05-8431Bsjviuob identified in Blood by Culture Blood CultureHolzer Health Systemtart: 39-28-7614Qsabd culture for bacteria, including anaerobic screenBlood CultureHolzer Health Systemtart: 08-16-2023 End: 35-89-1340Jkduybvyqvco / ancillary services cfqwbrsurl04/09/2024 10:00 AM EDT Ancillary Procedure [place] [id number] [facility] [address] [place] [address] R[facility] HospitalStart: 08-10-2023 End: 40-40-0406YFZ 12 LeadECG 12 Lead ECG Routine 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 (Multi) Expected: 08/10/2023 (Approximate), Expires: 07/26/2024[facility] Work Phone: Comment on above:Expected: 08/10/2023 (Approximate), Expires: 07/26/2024Start: 08-08-2023 End: 07-08-2024 reactive protein [Mass/volume] in Serum or PlasmaC-REACTIVE PROTEIN (CRP) Lab Routine Elevated sed rate Elevated C-reactive protein (CRP) Expected: 08/08/2023 (Approximate), Expires: 07/08/2024[facility] Work Phone: Comment on above:Expected: 08/08/2023 (Approximate), Expires: 07/08/2024Start: 08-08-2023 End: 27-80-9269Smvrnayornc sedimentation rateSED RATE WESTERGREN Lab Routine Elevated sed rate Elevated C-reactive protein (CRP) Expected: 08/08/2023 (Approximate), Expires: 07/08/2024[facility] Work Phone: Comment on above:Expected: 08/08/2023 (Approximate), Expires: 07/08/2024Start: 33-24-4242DjombqvqwHolzer Health Systemtart: 07-27-2023 End: 89-19-9835Rwvyvmjswznbv ExternalCardioversion External Cardiac Services Routine 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 (Multi) assisted current use of anticoagulant therapy Expected: 07/27/2023 (Approximate), Expires: 07/26/2025 [facility] [[email or web address]] Service Area Work Phone: Comment on above:Expected: 07/27/2023 (Approximate), Expires: 07/26/2025Start: 06-14-2023 End: 07-41-2154Xwyiwke encounter /07/2024 1:00 PM EST [facility]ment [facility] [address] [place] [address] Chhaya Whatley MD [address] [place], [place] [phone] [facility]-IVUStart: 06-04-2023 End: 74-65-2377Zqyuqey encounter gpzzmefnf10/26/2024 2:15 PM EST Office Visit [facility] [address] [place] [phone] Sarai Velasco MD [address] 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 Persistent atrial fibrillation ([facility]) Expected: 06/04/2023 (Approximate), Expires: 06/04/2024[facility] SystemComment on above:Expected: 06/04/2023 (Approximate), Expires: 06/04/2024Start: 06-04-2023 End: 90-25-3544Avkothokypukw externalCardioversion external Cardiac Services Routine Persistent atrial fibrillation ([facility]-H[facility]) Expected: 06/04/2023, Expires: 06/04/2024[facility] Work Phone: Comment on above:Expected: 06/04/2023, Expires: 06/04/2024Start: 06-04-2023 End: 67-75-7309NBL W Auto Differential panel - BloodCBC auto differential Lab Routine Coronary artery disease involving suquamish coronary artery of suquamish heart without angina pectoris Persistent atrial fibrillation ([facility]) Expected: 06/04/2023 (Approximate), Expires: 06/04/2024[facility] SystemComment on above:Expected: 06/04/2023 (Approximate), Expires: 06/04/2024Start: 05-21-2023 Duplex scan of lower limb veinsUS venous duplex [facility] Hospitalt[facility]: 04-12-2023 End: 086841-pywpbysfnjzezb D3 [Mass/volume] in Serum or PlasmaVITAMIN D 25 HYDROXY Lab Routine Vitamin D deficiency Expected: 04/12/2023 (Approximate), Expires: 01/11/2024[facility] Work Phone: Comment on above:Expected: 04/12/2023 (Approximate), Expires: 01/11/2024Start: 04-12-2023 End: 80-90-2675Dawhdvont (Vitamin B12) [Mass/volume] in Serum or PlasmaVITAMIN B12 BLOOD Lab Routine Vitamin B12 deficiency Expected: 04/12/2023 (Approximate), Expires: 01/11/2024[facility] Work Phone: Comment on above:Expected: 04/12/2023 (Approximate), Expires: 01/11/2024Start: 31-65-5048Zawtctdrtz Health ScreeningBehavioral Health ScreeningDunlap Memorial Hospitaltart: 02-39-7331Snxhhqekbd AssessmentDepression AssessmentDunlap Memorial Hospitaltart: 04-06-2023 End: 03-07-2024 reactive protein [Mass/volume] in Serum or PlasmaC-REACTIVE PROTEIN (CRP) Lab Routine PMR (polymyalgia rheumatica) (HCC) Elevated sed rate Elevated C-reactive protein (CRP) Expected: 04/06/2023 (Approximate), Expires: 03/07/2024[facility] Work Phone: Comment on above:Expected: 04/06/2023 (Approximate), Expires: 03/07/2024Start: 04-06-2023 End: 00-35-2793Hqgivfomksn sedimentation rateSED RATE WESTERGREN Lab Routine PMR (polymyalgia rheumatica) (HCC) Elevated sed rate Elevated C-reactive protein (CRP) Expected: 04/06/2023 (Approximate), Expires: 03/07/2024[facility] Work Phone: Comment on above:Expected: 04/06/2023 (Approximate), Expires: 03/07/2024Start: 02-13-2023 End: 44-15-4664VsxxzvaxsHolzer Health Systemtart: 43-23-1517Vofsyxza therapy procedureHolzer Health Systemtart: 02-10-2023 End: 01-11-2024 reactive protein [Mass/volume] in Serum or PlasmaC-REACTIVE PROTEIN (CRP) Lab Routine Elevated sed rate Elevated C-reactive protein (CRP) Expected: 02/10/2023 (Approximate), Expires: 01/11/2024[facility] Work Phone: Comment on above:Expected: 02/10/2023 (Approximate), Expires: 01/11/2024Start: 02-10-2023 End: 19-22-3712Xwdcubrberm sedimentation rateSED RATE WESTERGREN Lab Routine Elevated sed rate Elevated C-reactive protein (CRP) Expected: 02/10/2023 (Approximate), Expires: 01/11/2024[facility] Work Phone: Comment on above:Expected: 02/10/2023 (Approximate), Expires: 01/11/2024Start: 14-71-5613NxixycqfmHolzer Health Systemtart: 17-60-7122NcqadcoauHolzer Health Systemtart: 01-05-2023 End: 63-09-131006855827-tlrknwgweerepy D3 [Mass/volume] in Serum or [facility] Work Phone: [phone] on above:Expected: 01/05/2023 (Approximate), Expires: 01/06/2024Start: 01-05-2023 End: 78-31-7836Wssvfgpf [Enzymatic activity/volume] in Serum or [facility] Work Phone: Comment on above:Expected: 01/05/2023 (Approximate), Expires: 03/07/2023Start: 01-05-2023 End: 63-98-4195EZU BY IFA WITH [facility] Work Phone: Comment on above:Expected: 01/05/2023 (Approximate), Expires: 01/06/2024Start: 01-05-2023 End: 25-58-2754OMDII TB [facility] Work Phone: Comment on above:Expected: 01/05/2023 (Approximate), Expires: 01/06/2024Start: 01-05-2023 End: 71-11-0141Clmsnsk hepatitis differentiation between hepatitis B and C virus panel - Serum or [facility] Work Phone: Comment on above:Expected: 01/05/2023 (Approximate), Expires: 01/06/2024Start: 01-05-2023 End: 18-82-7972Rxeshg citrullinated peptide IgG Ab [Units/volume] in Serum or [facility] Work Phone: Comment on above:Expected: 01/05/2023 (Approximate), Expires: 01/06/2024Start: 76-46-8974Swwtw-19 Vaccine ( season)Covid- 19 Vaccine ( season)[facility] Hospitaltart: 11-92-8566Ppuuvlzte vaccinationDunlap Memorial Hospitaltart: 82-25-6689Joryaghid complement CH50 level [facility]tart: 87-44-0529GusgxzgkyHolzer Health Systemtart: 44-10-4549Gwcnu X-ray of right shoulderXR shoulder RT min 2V* [facility]: 88-09-4781Ponuo X-ray of left hipXR hip LT min 2V(w/wo pelvis)*[facility]: 04-09-2022 Depression AssessmentDepression AssessmentDunlap Memorial Hospitaltart: 06-06-2021 Covid-19 Vaccine (4 - Pfizer series)Covid-19 Vaccine (4 - Pfizer series) [facility]: 04-69-7043Nvdtkgafl vaccinationINFLUENZA (Season Ended) [facility]: 37-07-6089Ofeqankux B Vaccines (1 of 3 - Risk 3-dose series)Hepatitis B Vaccines (1 of 3 - Risk 3-dose series)[facility]: 01-93-6775AHB High Risk: (Elderly (60+) or Population) (1 - Risk 60-74 years 1-dose series)RSV High Risk: (Elderly (60+) or Population) (1 - Risk 60-74 years 1-dose series)[facility]: 19-68-2352KTU patients and/or patients aged 60+ years (1 - 1-dose 60+ series)RSV patients and/or patients aged 60+ years (1 - 1-dose 60+ series)[facility]: 13-78-7834XJX Vaccine (1 - 1-dose 60+ series)RSV Vaccine (1 - 1-dose 60+ series)[facility] Start: 45-10-9447EDONIYCX SCREENDIABETES SCREENDunlap Memorial Hospitaltart: 12-16-2014 PROSTATE CANCER SCREENING DISCUSSIONPROSTATE CANCER SCREENING DISCUSSION [facility]: 29-65-7121Yuxuixeyuvgyvs of varicella zoster vaccine Zoster (Shingles) Vaccine (1 of 2)[facility]: 12-16-2009 Pneumococcal Vaccine: 50+ (1 of 1 - PCV)Pneumococcal Vaccine: 50+ (1 of 1 - PCV) [facility]: 72-70-7360Fbenizvp specific antigen measurementPSA Prostate Cancer ScreeningUnTriHealth McCull[facility]: 12-16-2009 Screening for malignant neoplasm of colonDunlap Memorial Hospitaltart: 12-16-2009 SHINGRIX VACCINE (1 of 2)SHINGRIX VACCINE (1 of 2)[facility] Hospitalt[facility]: 75-48-1437Tfjwes Vaccines (1 of 2)Zoster Vaccines (1 of 2)[facility]: 88-94-3001Vsritijyr (FIT-DNA)Cologuard (FIT-DNA)[facility] Hospitaltart: 85-64-8090UarbydgzghdRgzuvoihgafFqmhdtcgv ClinicStart: 12-16-2004 Colorectal Cancer ScreeningColorectal Cancer ScreeningDunlap Memorial Hospitaltart: 23-67-7565FG COLONOGRAPHYCT COLONOGRAPHYDunlap Memorial Hospitaltart: 12-88-0263Pfpxd Occult BloodFecal Occult BloodDunlap Memorial Hospitaltart: 44-72-9555Baatbcjfj for malignant neoplasm of colonDunlap Memorial Hospitaltart: 33-04-7080HFHIKKIXQZZOP SIGMOIDOSCOPYDunlap Memorial Hospitaltart: 68-61-1364Fnlmx 1996 panel - Serum or Plasma Lipid ScreeningDunlap Memorial Hospitaltart: 48-15-3771Jfmxz panelLipid Screening [facility]: 36-39-0012MSGNA SCREENLIPID SCREENDunlap Memorial Hospitaltart: 91-33-8871Cztrxabqn A Vaccines (1 of 2 - Risk 2-dose series)Hepatitis A Vaccines (1 of 2 - Risk 2-dose series)[facility]: 12-16-1978 Pneumococcal vaccinationPneumococcal Vaccine (1 of 2 - PCV)[facility]: 73-16-3699Qymbn microalbumin profileDunlap Memorial Hospitaltart: 71-91-5403Ynxfk BMI Follow Up PlanAdult BMI Follow Up PlanNovant Healthtart: 12-95-9311Wrvdyi PCP Team Chronic Disease VisitAnnual PCP Team Chronic Disease VisitDunlap Memorial Hospitaltart: 81-98-4643Qzjtxox ScreeningAnxiety ScreeningDunlap Memorial Hospitaltart: 51-03-3572Qukflvxhtx ScreeningDepression ScreeningDunlap Memorial Hospitaltart: 65-43-9841Cikvouug mellitus screeningDiabetes ScreeningUnTriHealth McCullough-[facility]: 54-21-4262Djqnkujsz B surface antibody levelLDL CholesterolDunlap Memorial Hospitaltart: 13-38-4960Gizrplxle C screeningHepatitis C ScreeningSouthern [facility]: 12-16-1977 HIV SCREENINGHIV SCREENINGDunlap Memorial Hospitaltart: 51-49-2407CGW screeningHIV ScreeningDunlap Memorial Hospitaltart: 25-38-4747Jhhlp depression screening assessment DEPRESSION SCREENINGNovant Healthtart: 80-42-4592CGCDA-19 VACCINE (1) COVID-19 VACCINE (1)[facility] Hospitalt[facility]: 42-62-4290Ofytkznrlgkz Vaccine: 65+ Years (1 of 2 - PCV)Pneumococcal Vaccine: 65+ Years (1 of 2 - PCV)[facility]: 21-10-1400Lnxuzqdwieqz Vaccine: Pediatrics (0 to 5 Years) and At-Risk Patients (6 to 64 Years) (1 of 2 - PCV)Pneumococcal Vaccine: Pediatrics (0 to 5 Years) and At-Risk Patients (6 to 64 Years) (1 of 2 - PCV) [facility]: 44-93-2970BWE Vaccines (1 of 1 - Standard series)MMR Vaccines (1 of 1 - Standard series)[facility]: 25-86-4506Bziozi wellness visitMedicare Initial Physical (IPPE) [facility]: 71-00-4492BTF screeningHIV Screening [facility]: 54-86-5830Cbbep panelLipid Panel [facility]: 09-09-1960Medicare Annual Wellness Visit Medicare Annual Wellness Visit (AWV)[facility]: 14-04-1996Eiuglxcij for malignant neoplasm of colonUnTriHealth McCull[facility]-Hy[facility] Memorial Hospital: 94-14-7439Entnpil stimulating hormone measurementTSH Level [facility] End: 26-07-6543Jmaoc metabolic 2000 panel - Serum or PlasmaBasic metabolic panel Lab STAT STAT (Lab) for 1 Occurrences starting 01/29/2024 until 01/29/2024 [facility] Work Phone: Comment on above:STAT (Lab) for 1 Occurrences starting 01/29/2024 until 01/29/2024 End: 29-24-1767Zvrzz metabolic 2000 panel - Serum or PlasmaBasic Metabolic Panel Lab Routine Morning draw (Lab) for 3 Occurrences starting 01/30/2024 until [facility] Work Phone: Comment on above:Morning draw (Lab) for 3 Occurrences starting 01/30/2024 until 02/01/2024 reactive protein [Mass/volume] in Serum or PlasmaC-REACTIVE PROTEIN Lab Routine Elevated sed rate Elevated C-reactive protein (CRP) 06/30/2024 10:15AM EDTCtrihealth [facility] End: 82-12-1229Uhmnbcf catheterization studyCardiac Catheterization Procedure Cardiac Cath Routine Atrial fibrillation, unspecified type (Multi) Once for 1 Occurrences starting 01/29/2024 until 01/29/2024[facility] [[email or web address] Service Area Work Phone: Comment on above:Once for 1 Occurrences starting 01/29/2024 until 01/29/2024ardiac catheterization studyCardiac Catheterization Procedure Cardiac Cath Routine Atrial fibrillation, unspecified type (Multi) 01/29/2024 1:18 PM EDTChildren[facility] Hospital of [facility] Work Phone: End: 68-36-0774YIS W Auto Differential panel - BloodCBC and Auto Differential Lab STAT STAT (Lab) for 1 Occurrences starting 01/29/2024 until 01/29/2024 [facility] Work Phone: Comment on above:STAT (Lab) for 1 Occurrences starting 01/29/2024 until 01/29/2024 End: 63-32-1950WSY W Auto Differential panel - BloodCBC and Auto Differential Lab Routine Morning draw (Lab) for 3 Occurrences starting 01/30/2024 until 02/01/2024[facility] Work Phone: Comment on above:Morning draw (Lab) for 3 Occurrences starting 01/30/2024 until 02/01/2024omplement C3 [Mass/volume] in Serum or PlasmaVan Wert County HospitalComplement C4 [Mass/volume] in Serum or PlasmaVan Wert County HospitalComprehensive metabolic 1999 panel - Serum or PlasmaVan Wert County HospitalComprehensive metabolic 1999 panel - Serum or PlasmaCOMPREBROCKTON VA MEDICAL CENTERVE METABOLIC PANEL Lab Routine Elevated LFTs 06/30/2024 10:15 AM EDTCleveland ClinicCT Abdomen and Pelvis W contrast IV [facility] End: 57-07-0404DF watchman full contrastTHREE CROSSES REGIONAL [facility] [[email or web address]] Service Area Work Phone: Comment on above:Once for 1 Occurrences starting 06/13/2024 until 06/13/2024 End: 47-54-3391OIE-AXIAL SKELETONDXA-AXIAL SKELETON Radiology Routine Steroid- induced osteoporosis 1 Occurrences starting 01/05/2023until 02/04/2024[facility] Work Phone: Comment on above:1 Occurrences starting 01/05/2023 until 02/04/2024 End: 92-59-0133DHW-FOREARM SKELETONDXA-FOREARM SKELETON Radiology Routine Steroid-induced osteoporosis 1 Occurrences starting 01/05/2023 until 02/04/2024 [facility] Work Phone: Comment on above:1 Occurrences starting 01/05/2023 until 02/04/2024 End: 39-29-0888BOP 12 leadUnSumma Health [facility] Campus Work Phone: Comment on above:Once for 1 Occurrences starting 01/30/2025 until 01/30/2025s needed until discontinued starting 01/30/2025 End: 54-69-5048TBS 12 lead dailyECG 12 lead daily ECG Routine Daily for 3 Days starting 01/29/2024 until 01/31/2024[facility] Work Phone: Comment on above:Daily for 3 Days starting 01/29/2024 until 01/31/2024Electrocardiogram, 12-lead PRN ACS symptomsElectrocardiogram, 12-lead PRN ACS symptoms ECG Routine As needed until discontinued starting 01/29/2024[facility] Work Phone: Comment on above:As needed until discontinued starting 01/29/2024Erythrocyte sedimentation rateSEDIMENTATION RATE, WESTERGREN Lab Routine Elevated sed rate Elevated C-reactive protein (CRP) 06/30/2024 10:15 AM EDTCleveland Clinic End: 04-18-7741Jsuksycyz spirometry InstructIncentive spirometry Instruct Respiratory Care Routine Once for 1 Occurrences starting 01/29/2024 until 01/29/2024[facility] [[email or web address] Service Area Work Phone: Comment on above:Once for 1 Occurrences starting 01/29/2024 until 01/29/2024 End: 01-61-7900Khdmkqdib [Mass/volume] in Serum or PlasmaMagnesium Lab STAT STAT (Lab) for 1 Occurrences starting 01/29/2024 until 01/29/2024UnSumma Health [facility] Campus Work Phone: Comment on above:STAT (Lab) for 1 Occurrences starting 01/29/2024 until 01/29/2024 End: 41-41-6096Obpcmpnrm [Mass/volume] in Serum or PlasmaMagnesium Lab Routine Morning draw (Lab) for 3 Occurrences starting 01/30/2024 until 02/01/2024 [facility] Work Phone: Comment on above:Morning draw (Lab) for 3 Occurrences starting 01/30/2024 until 02/01/2024MR Lumbar spine WO and W contrast IV [facility] HospitalPatient EducationUc Health Ctr Work Phone: Patient referralUc Health Ctr Work Phone: End: 96-53-4012Mpqpwwvpjik time (PT)Protime-INR Lab STAT STAT (Lab) for 1 Occurrences starting 01/29/2024 until 01/29/2024UnSumma Health [facility] Campus Work Phone: Comment on above:STAT (Lab) for 1 Occurrences starting 01/29/2024 until 01/29/2024 End: 13-41-6059Uwinazforjy time (PT)Protime-INR Lab Routine Morning draw (Lab) for 3 Occurrences starting 01/30/2024 until 02/01/2024UnSumma Health [facility]ton Campus Work Phone: Comment on above:Morning draw (Lab) for 3 Occurrences starting 01/30/2024 until 02/01/2024Smith extractable nuclear Ab [Units/volume] in SerumVan Wert County Hospital End: 66-71-2502Mjozf Interpretation of outside [facility] Service Area Work Phone: comment on above:Once for 1 Occurrences starting 01/30/2025 until 01/30/2025SYNOVIAL FLUID CRYSTALS B/OSYNOVIAL FLUID CRYSTALS B/O Lab Routine Swelling of Knee Joint Ordered: 06/01/2009[facility] Comment on above:Ordered: 06/01/2009Urate [Mass/volume] in Serum or PlasmaURIC ACID Lab Routine Hyperuricemia 06/30/2024 10:15 AM EDTCNorth[facility] Immunizations Immunization DateImmunizationNotesCare RkbegmirJfaineng93-72-8974cuwgghumw, seasonal, injectableAntonio Steele MD Work Phone: [facility] Work Phone: [phone] virus vaccine, unspecified formulationAntonio Steele MD Work Phone: [facility] Work Phone: [phone]br, injectable, quadrivalent, preservative freeBenjamin Ball Other [facility]12-28-2023influenza virus vaccine, unspecified formulationAntonio Steele MD Work Phone: [facility] Work Phone: [phone], injectable, quadrivalent, contains preservativeRobert [place] [employer] Other [place] [employer] Other [phone] virus vaccine, split virus (incl. purified surface antigen)Jonathan Samano Other [facility] HealthExrshz66-82-5865nnncerpyy, injectable, quadrivalent, preservative freeDO Vitaliy Brower Work Phone: [facility]10-31-2022influenza virus vaccine, unspecified formulationHeladio Pineda MD Work Phone: [facility] HealthImfdev26-38-1423YRGTZ-31 mRNA, Comirnaty (Pfizer)DO Vitaliy Brower Work Phone: [facility]10-12-2021influenza virus vaccine, split virus (incl. purified surface antigen)Jonathan Samano Other [employer] Other [id number] trivalent influenza vaccine, adjuvanted, preservative freeBone [facility] CincinnatiXwdvjq60-45-8735pxuudqgmv virus vaccine, unspecified formulationHeladio Pineda MD Work Phone: [facility]03-19-2021COVID-19 mRNA, Comirnaty (Pfizer)DO Vitaliy Brower Work Phone: [facility]03-09-2021COVID-19 mRNA, Comirnaty (Pfizer)DO [employer] Work Phone: [facility]02-26-2021COVID-19 mRNA, Comirnaty (Pfizer)DO Vitaliy [employer] Work Phone: [facility]02-05-2021diphtheria, tetanus toxoids and acellular pertussis vaccine, unspecified formulationThomas Felter Other [facility]01-29-2021Kenalog -40 mgThomas Felter Other [employer] Other [id number] virus vaccine, split virus (incl. purified surface antigen)Jonathan Samano Other [facility] HealthCmuzhr32-29-4096pghflwkun virus vaccine, unspecified formulationDO Vitaliy Brower Work Phone: [facility]07-27-2020Kenalog -40 mgThomas Felter Other [employer] Other [id number] -40 mgThomas Felter Other [employer] Other [id number] virus vaccine, split virus (incl. purified surface antigen)Jonathan Samano Other [facility] HealthVrdvqm47-10-8727icfgpczeb virus vaccine, unspecified formulationDO [employer] Phone: [facility]12-31-2018Kenalog -40 mgThomas Felter Other [employer] Other 10-761636-34-5060tueyipxvv virus vaccine, split virus (incl. purified surface antigen)Jonathan Samano Other [employer] Other 10-288719-74-9398uxdvsqiqh virus vaccine, unspecified formulationDO [employer] Phone: [facility]10-15-2018Influenza, injectable, Madin Nolvia Canine Kidney, quadrivalent with preservativeBone Hosp Wilson HealthLiishs44-87-1213Rvmirmg -40 mgThomas Felter Other [employer] Other 02-020495-29-5657Ctkcssm -40 mgThomas Felter Other [employer] Other Payers DatePayer CategoryPayerPolicy [id number] 2023Medicare ([facility]) [id number] 2023Medicare HMOAETNA MEDICARE Member Subscriber Plan / Payer (Effective 2022-Present) Name: Esme Steven Relation to Subscriber: Self Name: Esme Steven Payer ID: [id number] ([facility]) Type: Not on file Address: [facility] [id number] [place] [id number] [id number] [id number] 2.840.1.637002.3.579.2.83983-20-7898Jhqghjh1586137 2.16840.1.878738.3.579.2.65535-40-0862Hmrsnbt9971548 2.840.1.828358.3.579.2.35424-29-2787Gqakdnc3448797 2.16840.1.254488.3.579.2.16846-58-2524Ywrdbwq11806452 2.16840.1.392489.3.579.2.752142-78-8460Cssibuq84009116 2.16840.1.766091.3.579.2.563546-21-7719Xscfnyz7981005 2.16840.1.706400.3.579.2.700133-32-7469Zqydqyl9864064 2.16840.1.351125.3.579.2.806701-08-3634Uziowex5694830 2.16.840.1.113357.3.579.2.457175-54-9885Tuonhtl44746544 2.16.840.1.636356.3.579.2.367221-60-7893Cqzcksh75109455 2.16.840.1.065017.3.579.2.024415-85-4794Yyiizml041402705 2.16.840.1.765608.3.579.2.511770-46-5140Evazrbm365629417 2.16.840.1.051671.3.579.2.998740-63-2923Tfamgjg956640188 2.16.840.1.072730.3.579.2.980371-43-0960Weqwcju112438292 2.0.1.730031.3.579.2.819920-22-2691Hnmxbjv310595811 2.16.840.1.949195.3.579.2.637564-66-5630Xqurmoq806152405 2..840.1.697413.3.579.2.697633-23-1082Ruijedc857771333 2.16.0.1.943002.3.579.2.785697-29-0288Ptzzxac156136618 2.0.1.840872.3.579.2.938452-26-1580Rnxgovo58298612 2.0.1.889799.3.579.2.185 [id number] 2.16840.1.017033.19 75-86-3315Jkjaftn Health [id number] [facility] [id number] [id number]-[id number]-4z6399a9yo7eZznvsuk57918421 2.16.840.1.372030.3.579.2.452Tpjckrh83093453 2.16.840.1.745611.3.579.2.531 Xkhoazk53131100 2.16.840.1.142928.3.579.2.266Xnoqdkt71360947 2.16.840.1.611362.3.579.2.969Ojwdclc71647037 2.16.840.1.442135.3.579.2.531 Tjnobmp74924209 2.16.840.1.217350.3.579.2.238Szwvhah40934358 2.16.840.1.148107.3.579.2.083Uwuaxlw94597004 2.16.840.1.672229.3.579.2.531 Ixehifj11175499 2.16.840.1.068279.3.579.2.006Cjktwyd17264964 2..840.1.066458.3.579.2.265Yqksxcc62395751 2.16.840.1.086385.3.579.2.531 Wzdbdva69866790 2.16840.1.639040.3.579.2.772Nbwrkui37319044 2.840.1.483518.3.579.2.531 Social History DateTypeDetailFacilityTobacco smoking status NHISUnknown if ever smokedDunlap Memorial Hospitaltart: 22-64-8864Nuj Assigned At BirthNot on fileDunlap Memorial Hospitaltart: 01-05-2023 End: 46-03-5617Bhq Assigned At [facility]: 07-04-2021 End: 12-27-8078Jxamtos smoking status NHISNever smoked tobacco (finding) [facility]: 26-00-6320Phx [facility] 01-05-2023 End: 29-32-4550Mpvhpwv intakeCurrent drinker of alcohol (finding)[facility]: 01-05-2023 End: 25-46-1930Eqkzjji intakeSouthern [facility] Medical Center: 07-09-2023 National Score (1-100), lower number is lower arwl52BlmjtyxcdDunlap Memorial Hospitaltart: 01-02-2023 End: 96-98-4124Ormbcyn use and exposureSmokeless tobacco non-userProMain Campus Medical Centerca [facility] SystemStart: 07-17-2023 End: 77-24-0027Mrtvtzws to SARS-CoV-2 (event)Not sureSouthern [facility] Medical Center: 07-09-2023 End: 37-26-6871QiyLgaq (finding)[facility] Systemt[facility]: 62-17-5570FKRJ Follow upSDOH Follow upMadison Health Work Phone: Medical Equipment Procedure CodeEquipment CodeEquipment Original TextEquipment IdentifierDates Arthroplasty, hip, total, anterior approachAcetabular shell ()[id number] FDAStart: 70-80-3089Yqqglhukfiya, hip, total, anterior approachCeramic femoral head prosthesis ()[id number] FDAStart: 46-43-0371Rhvvbmuftmfb, hip, total, anterior approachCoated hip femur prosthesis, modular ()[id number] FDAStart: 05-96-4712Cwsekzpxxlbz, hip, total, anterior approachNon-constrained polyethylene acetabular liner ()[id number] FDAStart: 55-95-9715Fluipeflmvhc, hip, total, anterior approachAcetabular shell()[id number] FDAStart: 76-58-5711Boqtgaqpmydg, hip, total, anterior approachCeramic femoral head prosthesis()[id number](17)[id number])[id number] FDAStart: 02-13-2023 Arthroplasty, hip, total, anterior approachCoated hip femur prosthesis, modular ()[id number] FDAStart: 21-13-7686Cjwioworsqpp, hip, total, anterior approachNon-constrained polyethylene acetabular liner ()[id number])[id number] FDAStart: 04-36-5109Hkhyts, Closure, 27mm Watchman Flx Pro Laac - [id number]_qujTmxum: 01-29-2024 Goals DatePatient GoalDesired Activity/State Functional Status YgmuIquzbnauaaXwscsmDnzlnhvm15-91-1984Ufliizpfgw [facility] Work Phone: [phone]ojpnqqan statusUnSumma Health Barber[facility] Campus Work Phone: [phone] - suicide severity rating scale screener - recent [C-SSRS][facility] Work Phone: 1([phone]bkifwas statusPatient at Baseline [facility] Work Phone: [phone]a statusPatient at Baseline [facility] Work Phone: [phone] statusPatient at Baseline [facility] Work Phone: [phone]kg statusPatient at Baseline [facility] Work Phone: [phone] statusPatient at Baseline [facility] Work Phone: [phone] statusDisability Status Patient at BaselineMad[facility] Health Work Phone: [phone] you deaf, or do you have serious difficulty hearingNo 11/27/2013 9:53 AM EDT Jessica Shearer (Fireman Helper)(Hist) [facility] Work Phone: [phone] you blind, or do you have serious difficulty seeing, even when wearing glassesNo 11/27/2013 9:53 AM EDT Jessica Shearer (Fireman Helper)([facility]) [facility]08-21-2014Do you have serious difficulty walking or climbing stairsNo 11/27/2013 9:53 AM EDT Jessica Shearer (Fireman Helper)([facility]) [facility]08-21-2014Do you have difficulty dressing or bathingNo 11/27/2013 9:53 AM EDT Jessica Shearer (Fireman Helper)([facility]) [facility]08-21-2014 Because of a physical, mental, or emotional condition, do you have difficulty doing errands alone such as visiting a physician's office or shoppingNo 11/27/2013 9:53 AM EDT Jessica Shearer (Fireman Helper)(Hist) [facility] Mental Status BzwmUlgcsfvbldOynxgbBxlycapl12-88-3358Gvxctgoer functionCognitive Status Patient at [facility] Work Phone: [phone] functionCognitive Status Patient at [facility] Work Phone: [phone] functionCognitive Status Patient at [facility] Work Phone: [phone] functionCognitive Status Patient at [facility] Work Phone: [phone] functionCognitive Status Patient at [facility] Work Phone: [phone] of a physical, mental, or emotional condition, do you have serious difficulty concentrating, remembering, or making decisionsNo 11/27/2013 9:53 AM EDT 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 You are welcome back any time. Thank you for entrusting your care to us, I hope we made your visit as pleasant as possible. Wishing you well! Dr. Luna documented in this [facility] Work Phone: 1(334) 406-952910-24-2025 Consult note* Tyson Perkins MD - 01/30/2025 3:48 AM EDTAssociated Order(s): Inpatient consult to Neurosurgery Images from the original note were not included. NEUROSURGERY CONSULT NOTE Date of Service: 01/30/2025 Attending Provider: Diogo Macias MD Reason for Consultation: Inpatient consult to Neurosurgery Consult performed by: Tyson Perkins MD Consult ordered by: Jose Antonio Adams MD Esme Steven is being seen today for a consult requested by Diogo Macias MD for RLE numbness. Subjective History of Present Illness: Esme is a 64 y.o. male on day 0 of admission with H/o cardiomegaly, afib, HFrEF (EF 45, sp CABGx4 2013. Watchman device, on ASA), HTN, HLD, GERD, orthostatic hypotension, BPH, TIA, THR, hypothyroidism, gout, IBS, Meniere's disease, migraines, MDD, FER, 01/30 pw RLE FD, MRI LS L1-2, L2-3, L3-5 disc buldge and facet hypertrophy w CCS Patient reports 4 weeks ago he had a spinal injection which he's had 2 years before but this time he did not have any pain relief and had worsening RLE pain and numbness. He was told by his chronic pain doctor to come to the ED. At OSH he got an MRI which showed central cord stenosis and was transferred to [facility]. Patient reports he feels his RLE is weaker with radiculopathy. He does not have anyLLE or BUE symptoms. He takes ASA 81 and last took it yesterday 01/29. He does not take Eliquis anymore. Review of Systems 10 point ROS is obtained and negative except the ones mentioned in the HPI Social History He reports that he has never smoked. He has never used smokeless tobacco. He reports current alcohol use of about 35.0 standard drinks of alcohol per week. He reports that he does not use drugs. Medical History Medical History[1] Surgical History Surgical History[2] Objective VITALS (24H): Temperature: [36.7 C (98 F)] 36.7 C (98 F) Heart Rate: [94-98] 94 Respirations: [18] 18 BP: (148-167)/(88-106) 148/88 INTAKE/OUTPUT:No intake or output data in the 24 hours ending 01/30/25 0349 VENT SETTINGS: Blood pressure 148/88, pulse 94, temperature 36.7 C (98 F), temperature source Oral, resp. rate 18,height 1.778 m (5' 10 ), weight 96.2 kg (212 lb), SpO2 96%. No intake/output data recorded. No intake/output data recorded. Output by Drain (mL) 01/28/25 0700 - 01/28/25 1859 01/28/25 1900 - 01/29/25 0659 01/29/25 0700 - 01/29/25 1859 01/29/25 1900 - 01/30/25 0349 Patient has no LDAs of requested type attached. Exam: Constitutional: No acute distress Resp: breathing comfortably Cardio: well perfused GI: nondistended MSK: full range of motion Psych: appropriate Skin: no obvious lesions Neuro: Awake, A&Ox3 Cranial Nerves II-XII: PERRL, EOMI, Face symmetric, Facial SILT, Palate/Tongue midline and symmetric, shoulder shrugs symmetric, hearing intact to finger rubs bilaterally Motor: 5/5 Sensation: Reports numbness and pain down his whole RLE except his inner calf area DTRS: 2+ Throughout, No Hoffmans or Clonus Medications Current Outpatient Medications Medication Instructions allopurinol [...] Daily valsartan (DIOVAN) 40 mg, oral, Daily Scheduled: PRN: Continuous: Scheduled Medications[3] PRN Medications[4] Continuous Medications[5] Diagnostic Results: LAB RESULTS: CBC Results from last 7 days Lab Units 01/30/25 0216 WBC AUTO x10*3/uL 7.0 HEMOGLOBIN g/dL 14.1 HEMATOCRIT % 39.0* MCV fL 101* PLATELETS AUTO x10*3/uL 115* RFP Results from last 7 days Lab Units 01/30/25 0216 GLUCOSE mg/dL 169* CALCIUM mg/dL 9.2 SODIUM mmol/L 137 POTASSIUM mmol/L 3.7 CO2 mmol/L 25 CHLORIDE mmol/L 103 BUN mg/dL 17 CREATININE mg/dL 0.73 Electrolyte Results from last 7 days Lab Units 01/30/25 0216 CALCIUM mg/dL 9.2 COAG Imaging Results: No orders to display Assessment/Plan Assessment: Esme Steven 64 y.o. male H/o cardiomegaly, afib, HFrEF (EF 45, sp CABG x4 2012. Watchman device, on ASA), HTN, HLD, GERD, orthostatic hypotension, BPH, TIA, THR, hypothyroidism, gout, IBS, Meniere's disease, migraines, MDD, FER, 01/30 pw RLE FD, MRI LS L1-2, L2-3, L3-5 disc buldge and facet hypertrophy w CCS Patient has radiculopathy symptoms potentially related to his disc bulges. Plan: Obtain CBC, RFP, coag, T&S Na goal normonatremia, avoid hyponatremia Platelet goal >100K and INR <1.6 Please hold all AC and AP Further Neurosurgical Recommendations pending further imaging and discussion with team Tyson Perkins MD Department of Neurosurgery [facility] Note authored by resident on neurosurgery team, with all questions [place] [phone] Plan not finalized until note signed by attending [1] Past Medical History: Diagnosis Date Coronary artery disease Hyperlipidemia Hypertension [2] Past Surgical History: Procedure Laterality Date APPENDECTOMY BACK SURGERY CARDIAC CATHETERIZATION N/A 01/29/2024 Procedure: LAAO (Left Atrial Appendage Occlusion); Surgeon: Bird Kowalski MD; Location: [address] [facility]; Service: Cardiovascular; Laterality: N/A; same day CT 1000 CARDIOVERSION 08/02/2023 CARDIOVERSION 11/19/2024 CARDIOVERSION COLONOSCOPY CORONARY ARTERY BYPASS GRAFT TOTAL HIP ARTHROPLASTY Bilateral TOTAL KNEE ARTHROPLASTY Bilateral [3] [4] [5] Cosigned by Corey Corona MD PhD at 01/30/2025 8:28 AM EDT [facility] Work Phone: [phone] 145-707310-24-2025 Consult note* Tyson Perkins MD - 01/30/2025 3:48 AM EDTAssociated Order(s): Inpatient consult to Neurosurgery Images from the original note were not included. NEUROSURGERY CONSULT NOTE Date of Service: 01/30/2025 Attending Provider: Diogo Macias MD Reason for Consultation: Inpatient consult to Neurosurgery Consult performed by: Tyson Perkins MD Consult ordered by: MD Esme Rosas is being seen today for a consult requested by Diogo Macias MD for RLE numbness. Subjective History of Present Illness: Esme is a 64 y.o. male on day 0 of admission with H/o cardiomegaly, afib, HFrEF (EF 45, sp CABGx4 2012. Watchman device, on ASA), HTN, HLD, GERD, orthostatic hypotension, BPH, TIA, THR, hypothyroidism, gout, IBS, Meniere's disease, migraines, MDD, FER, 01/30 pw RLE FD, MRI LS L1-2, L2-3, L3-5 disc buldge and facet hypertrophy w CCS Patient reports 4 weeks ago he had a spinal injection which he's had 2 years before but this time he did not have any pain relief and had worsening RLE pain and numbness. He was told by his chronic pain doctor to come to the ED. At OSH he got an MRI which showed central cord stenosis and was transferred to [facility]. Patient reports he feels his RLE is weaker with radiculopathy. He does not have anyLLE or BUE symptoms. He takes ASA 81 and last took it yesterday 01/29. He does not take Eliquis anymore. Review of Systems 10 point ROS is obtained and negative except the ones mentioned in the HPI Social History He reports that he has never smoked. He has never used smokeless tobacco. He reports current alcohol use of about 35.0 standard drinks of alcohol per week. He reports that he does not use drugs. Medical History Medical History[1] Surgical History Surgical History[2] Objective VITALS (24H): Temperature: [36.7 C (98 F)] 36.7 C (98 F) Heart Rate: [94-98] 94 Respirations: [18] 18 BP: (148-167)/(88-106) 148/88 INTAKE/OUTPUT:No intake or output data in the 24 hours ending 01/30/25 0349 VENT SETTINGS: Blood pressure 148/88, pulse 94, temperature 36.7 C (98 F), temperature source Oral, resp. rate 18,height 1.778 m (5' 10 ), weight 96.2 kg (212 lb), SpO2 96%. No intake/output data recorded. No intake/output data recorded. Output by Drain (mL) 01/28/25 0700 - 01/28/25 1859 01/28/25 1900 - 01/29/25 0659 01/29/25 0700 - 01/29/25 1859 01/29/25 1900 - 01/30/25 0349 Patient has no LDAs of requested type attached. Exam: Constitutional: No acute distress Resp: breathing comfortably Cardio: well perfused GI: nondistended MSK: full range of motion Psych: appropriate Skin: no obvious lesions Neuro: Awake, A&Ox3 Cranial Nerves II-XII: PERRL, EOMI, Face symmetric, Facial SILT, Palate/Tongue midline and symmetric, shoulder shrugs symmetric, hearing intact to finger rubs bilaterally Motor: 5/5 Sensation: Reports numbness and pain down his whole RLE except his inner calf area DTRS: 2+ Throughout, No Hoffmans or Clonus Medications Current Outpatient Medications Medication Instructions allopurinol [...] Daily valsartan (DIOVAN) 40 mg, oral, Daily Scheduled: PRN: Continuous: Scheduled Medications[3] PRN Medications[4] Continuous Medications[5] Diagnostic Results: LAB RESULTS: CBC Results from last 7 days Lab Units 01/30/25 0216 WBC AUTO x10*3/uL 7.0 HEMOGLOBIN g/dL 14.1 HEMATOCRIT % 39.0* MCV fL 101* PLATELETS AUTO x10*3/uL 115* RFP Results from last 7 days Lab Units 01/30/25 0216 GLUCOSE mg/dL 169* CALCIUM mg/dL 9.2 SODIUM mmol/L 137 POTASSIUM mmol/L 3.7 CO2 mmol/L 25 CHLORIDE mmol/L 103 BUN mg/dL 17 CREATININE mg/dL 0.73 Electrolyte Results from last 7 days Lab Units 01/30/25 0216 CALCIUM mg/dL 9.2 COAG Imaging Results: No orders to display Assessment/Plan Assessment: Esme Steven 64 y.o. male H/o cardiomegaly, afib, HFrEF (EF 45, sp CABG x4 2013. Watchman device, on ASA), HTN, HLD, GERD, orthostatic hypotension, BPH, TIA, THR, hypothyroidism, gout, IBS, Meniere's disease, migraines, MDD, FER, 01/30 pw RLE FD, MRI LS L1-2, L2-3, L3-5 disc buldge and facet hypertrophy w CCS Patient has radiculopathy symptoms potentially related to his disc bulges. Plan: Obtain CBC, RFP, coag, T&S Na goal normonatremia, avoid hyponatremia Platelet goal >100K and INR <1.6 Please hold all AC and AP Further Neurosurgical Recommendations pending further imaging and discussion with team Tyson Perkins MD Department of Neurosurgery [facility] Note authored by resident on neurosurgery team, with all questions [place] [phone] Plan not finalized until note signed by attending [1] Past Medical History: Diagnosis Date Coronary artery disease Hyperlipidemia Hypertension [2] Past Surgical History: Procedure Laterality Date APPENDECTOMY BACK SURGERY CARDIAC CATHETERIZATION N/A 01/29/2024 Procedure: LAAO (Left Atrial Appendage Occlusion); Surgeon: Bird Kowalski MD; Location: [address] Cardiac [facility]; Service: Cardiovascular; Laterality: N/A; same day CT 1000 CARDIOVERSION 08/02/2023 CARDIOVERSION 11/19/2024 CARDIOVERSION COLONOSCOPY CORONARY ARTERY BYPASS GRAFT TOTAL HIP ARTHROPLASTY Bilateral TOTAL KNEE ARTHROPLASTY Bilateral [3] [4] [5] Cosigned by Corey Corona MD PhD at 01/30/2025 8:28 AM EDT documented in this encounterUnSumma [facility] Work Phone: 1([phone] 355-625010-24-2025 Emergency department Triage note* Urmila Burgess RN - 01/30/2025 1:39 AM EDT Pt to ED as a transfer from [facility] for a neurosurgery consult. Pt had epidural 2 weeks ago and is complaining of RLE numbness and pain from buttocks down to his toes. Per OSH MRI shows severe canal narrowing. Pt A&Ox4. [facility] Work Phone: 1([phone] 698-671510-24-2025 Emergency department Note* Urmila Burgess RN - 01/30/2025 1:39 AM EDT Pt to ED as a transfer from [facility] for a neurosurgery consult. Pt had epidural 2 weeks ago and is complaining of RLE numbness and pain from buttocks down to his toes. Per OSH MRI shows severe canal narrowing. Pt A&Ox4. documented in this encounterUnSumma [facility] Work Phone: 1([phone]) 828-904509-15-2025 History of Present illness Narrative* Antonio Steele MD - 12/22/2024 11:30 AM EDT Chief Complaint Patient presents with Follow-up DCC [...] dose. He underwent cardioversion and remained in normalsinus rhythm with improvement of his symptoms. 2. [...] Scribe Attestation By signing my name below, Celia Dumont Scribe attest that this documentation has been [...] exam, discussion and plan. documented in this [facility] Work Phone: 1([phone]) 625-961709-15-2025 Instructions* Patient Instructions* Celia Alves LPN - 12/22/2024 11:30 AM [...] 12.4 Lbs Provided instructions on dietary changes. * Attachments The following attachments cannot be sent through Care Everywhere. * Heart Healthy Diet (Belgian) documented in this encounterChildren[facility] Work Phone: 1(862) 608-917809-08-2025 History of Present illness Narrative* Keila Garcia CMA - 12/15/2024 3:00 PM [...] done in office today documented in this encounterChildren[facility] Work Phone: 1(863) 466-377409-04-2025 Progress note Author Antonio Steele [facility] Date/TimeSeptember 2024 9:39am [place] [id number] Cardiology Progress Note Signed Patient: Esme Steven MR#: [id number] : 1960 Acct:[id number] Age/Sex: 63 / M Adm Date: 5 Loc: Room: [address] [place] [address] Type: ADM IN Attending Dr: Antonio Steele [...] <Electronically signed by MD Antonio Steele> 12/11/24938 [facility] Work Phone: 1(403) 645-952409-04-2025 [place] [address] Cardioversion Procedure Note Signed Patient: Esme Steven MR#: [id number] : 1960 Acct:[id number] Age/Sex: 63 / M Adm Date: 5 Loc: Room: [address] [place] [address] Type: ADM IN Attending Dr: Antonio Steele [...] medical regimen Documented By: Antonio Steele MD 12/11/2439 Signed By: 12/11/2440 [facility]09-04-2025 [place] [address] Cardiology Progress Note Signed Patient: Esme Steven MR#: [id number] : 1960 Acct:[id number] Age/Sex: 63 / M Adm Date: 5 Loc: Room: [address] [place] [address] Type: ADM IN Attending Dr: Antonio Steele [...] Steele MD 12/11/24937 Signed By: 12/11/24 0939 [facility]09-03-2025 Progress note Author Antonio Steele [facility]Note Date/TimeSeptember 2024 11:34am [place] [address] Cardiology Progress Note Signed Patient: Esme Steven MR#: [id number] : 1960 Acct:[id number] Age/Sex: 63 / M Adm Date: 5 Loc: Room: 0P9013-3 Type: ADM IN Attending Dr: Antonio Steele [...] proceed with cardioversion tomorrow Documented By: Antonio tSeele MD 12/10/24 1133 Signed By: <Electronically signed by MD Antonio Steele> 12/10/24 1139 [facility] Work Phone: 1(744) 501-699909-03-2025 [place] [address] Cardiology Progress Note Signed Patient: Esme Steven MR#: [id number] : 1960 Acct:[id number] Age/Sex: 63 / M Adm Date: 5 Loc: Room: [address] [place] [address] Type: ADM IN Attending Dr: Antonio Steele [...] MD 12/10/24 1133 Signed By: 12/10/24 1134 [facility]09-02-2025 History and physical note Author Antonio Steele [facility] Date/TimeSeptember 2024 12:08pm [place] [address] Cardiology H&P Signed Patient: Esme Steven MR#: [id number] : 1960 Acct:[id number] Age/Sex: 63 / M Adm Date: 5 Loc: Room: [address] [place] [address] Type: ADM IN Attending Dr: Antonio Steele [...] of systems: Palpitation and shortness of breath [facility] Medical History (Updated 12/09/24 @ 12:08 by [...] <Electronically signed by MD Antonio Steele> 12/09/24 1205 [facility] Work Phone: 1(403) 651-605309-02-2025 [place] [address] Cardiology H&P Signed Patient: Emse Steven MR#: [id number] : 1960 Acct:[id number] Age/Sex: 63 / M Adm Date: 5 Loc: Room: [address] [place] [address] Type: ADM IN Attending Dr: Antonio Steele [...] of systems: Palpitation and shortness of breath [facility] Medical History (Updated 12/09/24 @ 12:08 by [...] MD 12/09/24 1158 Signed By: 12/09/24 1208 [facility]09-02-2025 Evaluation note* Diagnosis Onset Date Resolution Status Admit Date Persistent atrial fibrillation acuteSept2024 8:11amOther spondylosis with radiculopathy, lumbar regionacuteSeptember 2024 10:51amLow back paindeletedSeptember 2024 10:51amOther chronic paindeletedSeptember 2024 10:51amAcute bronchitis due to other specified organismsacuteSeptember 2024 9:33amRib fractureacute December 26, 2024 9:33amLaceration of leg excluding thigh, with complication noneactiveSeptember 2024 9:33amCellulitis of leg without foot, left noneactiveSeptember 2024 9:33amOther spondylosis with radiculopathy, lumbar regionacuteSeptember 2024 9:45amLow back paindeletedSeptember 2024 9:45amOther chronic paindeletedSeptember 2024 9:45amGreater trochanteric bursitis of right hipacuteOctober 2024 12:22pmHistory of total right hip arthroplastyacuteOctober 2024 12:22pmASHD (arteriosclerotic heart disease)acuteOctober 2024 2:23pmLow back pain radiating to right legacute January 12, 2025 2:23pmNonhealing ulcer of left lower legacuteOctober 2024 2:23pmType 2 diabetes mellitus with hyperglycemiaacuteOctober 2024 2:23pm [facility] Work Phone: 1(109) 929-274709-02-2025 Evaluation note* Diagnosis Onset Date Resolution Status Admit Date Persistent atrial fibrillation acuteSept2024 8:11amOther spondylosis with radiculopathy, lumbar regionacuteSeptember 2024 10:51amLow back paindeletedSeptember 2024 10:51amOther chronic paindeletedSeptember 2024 10:51amAcute bronchitis due to other specified organismsacuteSept2024 9:33amRib fractureacute December 26, 2024 9:33amLaceration of leg excluding thigh, with complication noneactiveSeptember 2024 9:33amCellulitis of leg without foot, left noneactiveSeptember 2024 9:33amOther spondylosis with radiculopathy, lumbar regionacuteSeptember 2024 9:45amLow back paindeletedSeptember 2024 9:45amOther chronic paindeletedSeptember 2024 9:45amGreater trochanteric bursitis of right hipacuteOctober 2024 12:22pmHistory of total right hip arthroplastyacuteOctober 2024 12:22pmASHD (arteriosclerotic heart disease)acuteOctober 2024 2:23pmLow back pain radiating to right legacute January 12, 2025 2:23pmNonhealing ulcer of left lower legacuteOctober 2024 2:23pmType 2 diabetes mellitus with hyperglycemiaacuteOctober 2024 2:23pm Other spondylosis with radiculopathy, lumbar regionacuteOctober 2024 10:02amLow back paindeletedOctober 2024 10:02amOther chronic paindeleted January 29, 2025 10:02am [facility] Work Phone: 1(333) 317-415208-13-2025 History of Present illness Narrative* Antonio Steele MD - 11/19/2024 12:50 PM [...] systolic dysfunction I suggested trial of low-dose Pyfiuo19 mg daily. I advised him to monitor [...] By signing my name below, I, Jasmine Huber LPN , Ashly attest that this documentation [...] exam, discussion and plan. documented in this [facility] Work Phone: 1(287) 382-808208-13-2025 Instructions* Patient Instructions* Jasmine Coello LPN - [...] cardioversion( in 3 weeks) documented in this [facility] Work Phone: 1(466) 388-662507-17-2025 Evaluation note* Diagnosis Onset Date Resolution Status Admit Date Greater trochanteric bursitis of right h ip acuteJuly 2024 1:54pmHistory of total right hip arthroplastyacuteJuly 2024 1:54pmPersistent atrial fibrillationacuteSeptember 2024 8:11am Low back painacuteSeptember 2024 10:51amOther chronic painacuteSeptember 2024 10:51amOther spondylosis with radiculopathy, lumbar regionacute December 15, 2024 10:51amAcute bronchitis due to other specified organisms acuteSeptember 2024 9:33amRib fractureacuteSeptember 2024 9:33am Laceration of leg excluding thigh, with complicationnoneactiveSeptember 2024 9:33amCellulitis of leg without foot, leftnoneactiveSeptember 2024 9:33amLow back painacuteSeptember 2024 9:45amOther chronic painacute January 05, 2025 9:45amOther spondylosis with radiculopathy, lumbar region acuteSeptember 2024 9:45amGreater trochanteric bursitis of right hipacute January 07, 2025 12:22pmHistory of total right hip arthroplastyacuteOct2024 12:22pm [facility] Work Phone: 1([phone]) 189-391507-02-2025 Evaluation note* Diagnosis Onset Date Resolution Status Admit Date ASHD (arteriosclerotic heart disease) acuteJuly 2024 1:53pmAtrial fibrillationacuteJuly 2024 1:53pmChronic HFrEF (heart failure with reduced ejection fraction)acuteJuly 2024 1:53pm GENESIS (generalized anxiety disorder)acuteJuly 2024 1:53pmHypercholesterolemia acuteJuly 2024 1:53pmHypothyroidacuteJuly 2024 1:53pmOSA (obstructive sleep apnea)acuteJuly 2024 1:53pmPseudogoutacuteJuly 2024 1:53pm Greater trochanteric bursitis of right hipacuteJuly 2024 1:54pmHistory of total right hip arthroplastyacuteJuly 2024 1:54pmPersistent atrial fibrillationacuteSeptember 2024 8:11amLow back painacuteSeptember 2024 10:51amOther chronic painacuteSeptember 2024 10:51amOther spondylosis with radiculopathy, lumbar regionacuteSept2024 10:51amAcute bronchitis due to other specified organismsacuteSept2024 9:33amRib fractureacute Lola 2024 9:33amLaceration of leg excluding thigh, with complication noneactiveSeptember 2024 9:33amCellulitis of leg without foot, left noneactiveSeptember 2024 9:33am [facility] Work Phone: 1(894) 710-129207-02-2025 Evaluation note* Diagnosis Onset Date Resolution Status Admit Date ASHD (arteriosclerotic heart disease) acuteJuly 2024 1:53pmAtrial fibrillationacuteJuly 2024 1:53pmChronic HFrEF (heart failure with reduced ejection fraction)acuteJuly 2024 1:53pm GENESIS (generalized anxiety disorder)acuteJuly 2024 1:53pmHypercholesterolemia acuteJuly 2024 1:53pmHypothyroidacuteJuly 2024 1:53pmOSA (obstructive sleep apnea)acuteJuly 2024 1:53pmPseudogoutacuteJuly 2024 1:53pm Greater trochanteric bursitis of right hipacuteJuly 2024 1:54pmHistory of total right hip arthroplastyacuteJuly 2024 1:54pmPersistent atrial fibrillationacuteSeptember 2024 8:11amLow back painacuteSeptember 2024 10:51amOther chronic painacuteSeptember 2024 10:51amOther spondylosis with radiculopathy, lumbar regionacuteSeptember 2024 10:51amAcute bronchitis due to other specified organismsacuteSept2024 9:33amRib fractureacute December 26, 2024 9:33amLaceration of leg excluding thigh, with complication noneactiveSeptember 2024 9:33amCellulitis of leg without foot, left noneactiveSept2024 9:33amLow back painacuteSept2024 9:45amOther chronic painacuteSeptember 2024 9:45amOther spondylosis with radiculopathy, lumbar regionacuteSept2024 9:45am [facility] Work Phone: 1(432) 408-683906-25-2025 Consult note Author Lala Arce [facility] Date/TimeJune 2024 11:[place] [address] Cardiology Consult Note Signed Patient: Esme Steven MR#: [id number] : 1960 Acct:[id number] Age/Sex: 63 / M Adm Date: 5 Loc: Room: [address] [place] [address] Type: ADM INOo Attending Dr: Leidy Nuno DO Copies to: DO Lala Hannah MD, [facility] Leidy Nuno DO~ Cardiology HPI History of Present Illness Consult Date: 10/01/24 Reason for Consult: Hypotension HPI: Mr. Steven is a 63 year old male who is being seen at request of the hospitalist for hypotension. The patient was discharged 48 hours from [facility] after having admission for chest pain leading to diagnostic heart catheterization which revealed patent for coronary bypass farooq rgery grafts including RIVAS graft to the LAD, saphenous vein graft to diagonal, saphenous vein graft to obtuse marginal, saphenous vein graft to the RCA. His [place] coronary arteries were occluded. 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 Review of Systems Review of Systems Review of systems: 10 point review of system outside of what is covered above in HPI was unremarkable [facility] Medical History (Updated 10/01/24 @ 11:35 by [...] Lymph # (Auto) 1.9 2.2 (1.00-4.8) x10E3/uL Noble # (Auto) 0.7 1.1 H (0.0-0.8) x10E3/uL [...] ml @ 999 mls/hr IV .Q31M ONE Rx#:[id number] Oral 250 / 250 Other: # Unmeasured [...] device: Assessment/Problem Details: Placed in 2023 at [facility] Plan: Continue to be monitored, continue baby [...] Code(s): I25.10 - Atherosclerotic heart disease of [place] coronary artery without angina pectoris (7) Persistent atrial fibrillation: Assessment/Problem Details: Not very symptomatic but in the presence of severe LV systolic dysfunction orthodox of normal sinus rhythm is desirable Plan: [...] Ischemic cardiomyopathy Documented By: Lala Arce MD, [facility] 5 1127 Signed By: <Electronically signed by MD POLO Arce> 10/01/24 1138 [facility] Work Phone: 1(521) 162-730506-25-2025 [place] [address] Hospitalist H&P Signed Patient: Esme Steven MR#: [id number] : 1960 Acct:[id number] Age/Sex: 63 / M Adm Date: 5 Loc: Room: [address] [place] [address] Type: ADM INOo Attending Dr: Leidy Nuno DO Copies to: DO Ada Hannah APRN Yazid Hussein, ~ HPI DATE OF EXAMINATION: 09/30/24 CHIEF COMPLAINT: [...] obtained, negative unless noted in the HPI [facility] Source: Old Records Reviewed Medical History Vitamin [...] % (Auto) 11.5 % (.) 09/30/24 14:21 Noble % (Auto) 3.9 % (.) 09/30/24 14:21 Eos % (Auto) 0.2 % (.) 09/30/24 14:21 Baso % (Auto) 0.6 % (.) 09/30/24 14:21 Nucleat RBC Rel Count 0.1 /100 WBC (0-0.5) 09/30/24 14:21 Neut # (Auto) 14.2 x10E3/uL (1.8-7.7) H 09/30/24 14:21 Lymph # (Auto) 1.9 x10E3/uL (1.00-4.8) 09/30/24 14:21 Noble # (Auto) 0.7 x10E3/uL (0.0-0.8) 09/30/24 14:21 [...] 09/30/24 1604 Signed By: 09/30/24 1653 10/01/24 [facility]7 [facility]06-25-20[place] [address] Cardiology Consult Note Signed Patient: Esme Steven MR#: [id number] : 1960 Acct:[id number] Age/Sex: 63 / M Adm Date: 5 Loc: Room: [address] [place] [address] Type: ADM INOo Attending Dr: Leidy Nuno DO Copies to: DO Lala Hannah MD, FACC Leidy Nuno DO~ Cardiology HPI History of Present Illness Consult Date: 10/01/24 Reason for Consult: Hypotension HPI: Mr. Steven is a 63 year old male who is being seen at request of the hospitalist for hypotension. The patient was discharged 48 hours from [facility] after having admission for chest pain leading to diagnostic heart catheterization which revealed patent for coronary bypass farooq rgery grafts including RIVAS graft to the LAD, saphenous vein graft to diagonal, saphenous vein graft to obtuse marginal, saphenous vein graft to the RCA. His [place] coronary arteries were occluded. 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 Review of Systems Review of Systems Review of systems: 10 point review of system outside of what is covered above in HPI was unremarkable [facility] Medical History (Updated 10/01/24 @ 11:35 by [...] Lymph # (Auto) 1.9 2.2 (1.00-4.8) x10E3/uL Noble # (Auto) 0.7 1.1 H (0.0-0.8) x10E3/uL [...] ml @ 999 mls/hr IV .Q31M ONE Rx#:[id number] Oral 250 / 250 Other: # Unmeasured [...] device: Assessment/Problem Details: Placed in 2023 at [facility] Plan: Continue to be monitored, continue baby [...] Code(s): I25.10 - Atherosclerotic heart disease of [place] coronary artery without angina pectoris (7) Persistent atrial fibrillation: Assessment/Problem Details: Not very symptomatic but in the presence of severe LV systolic dysfunction orthodox of normal sinus rhythm is desirable Plan: [...] Ischemic cardiomyopathy Documented By: Lala Arce MD, [facility] 5 1127 Signed By: 10/01/24 1138 [facility]06-24-2025 Radiology Diagnostic study note [facility] [place] [address] CT Scan Report Signed Patient: Esme Steven MR#: [id number] : 1960 Acct:[id number] Age/Sex: 63 / M ADM Date: 5 Loc: ER Room: Type: [facility] ER Attending Dr: Copies to: Radha [...] Paul M.D. 09/30/2024 4:34 PM Dictation Location: [facility] Transcribed By: GWEN 09/30/24 1634 Dictated By: Ap Paul MD 09/30/24 1630 Signed By: 09/30/24 1634 [facility] Work Phone: 1(710) 610-535006-23-2025 Evaluation note* Diagnosis Onset Date Resolution Status Admit Date Abnormal cardiovascular stress test acuteJune 2024 3:07amASHD (arteriosclerotic heart disease)acuteJune 2024 3:07amAtrial fibrillationacuteJune 2024 3:07amHypercholesterolemia acuteJune 2024 3:07amHypothyroidacuteJune 2024 3:07amOSA (obstructive sleep apnea)acuteJune 2024 3:07amPresence of Watchman left atrial appendage closure deviceacuteJune 2024 3:07amChest painresolvedJune 2024 3:07amASHD (arteriosclerotic heart disease)acuteJune 2024 4:14pmHypercholesterolemiaacuteJune 2024 4:14pmPersistent atrial fibrillationacuteJune 2024 4:14pmPresence of Watchman left atrial appendage closure deviceacuteJune 2024 4:14pmAcute hypotensionresolvedJune 2024 4:14pmAKI (acute kidney injury)resolvedJune 2024 4:14pm Atypical chest painresolvedJune 2024 4:14pmBlurred vision, bilateral resolvedJune 2024 4:14pmPre-syncoperesolvedJune 2024 4:14pmIschemic cardiomyopathyinactiveJune 2024 4:14pmPrimary hypertensioninactiveJune 2024 4:14pmASHD (arteriosclerotic heart disease)acuteJuly 2024 1:53pm Atrial fibrillationacuteJuly 2024 1:53pmChronic HFrEF (heart failure with reduced ejection fraction)acuteJuly 2024 1:53pmGAD (generalized anxiety disorder)acuteJuly 2024 1:53pmHypercholesterolemiaacuteJuly 2024 1:53pmHypothyroidacuteJuly 2024 1:53pmOSA (obstructive sleep apnea)acute October 08, 2024 1:53pmPseudogoutacuteJuly 2024 1:53pmGreater trochanteric bursitis of right hipacuteJuly 2024 1:54pmHistory of total right hip arthroplastyacuteJuly 2024 1:54pmPersistent atrial fibrillationacute December 09, 2024 8:11am [facility] Work Phone: 1(377) 241-442106-23-2025 Evaluation note* Diagnosis Onset Date Resolution Status Admit Date Abnormal cardiovascular stress test acuteJune 2024 3:07amASHD (arteriosclerotic heart disease)acuteJune 2024 3:07amAtrial fibrillationacuteJune 2024 3:07amHypercholesterolemia acuteJune 2024 3:07amHypothyroidacuteJune 2024 3:07amOSA (obstructive sleep apnea)acuteJune 2024 3:07amPresence of Watchman left atrial appendage closure deviceacuteJune 2024 3:07amChest painresolvedJune 2024 3:07amASHD (arteriosclerotic heart disease)acuteJune 2024 4:14pmHypercholesterolemiaacuteJune 2024 4:14pmPersistent atrial fibrillationacuteJune 2024 4:14pmPresence of Watchman left atrial appendage closure deviceacuteJune 2024 4:14pmAcute hypotensionresolvedJune 2024 4:14pmAKI (acute kidney injury)resolvedJune 2024 4:14pm Atypical chest painresolvedJune 2024 4:14pmBlurred vision, bilateral resolvedJune 2024 4:14pmPre-syncoperesolvedJune 2024 4:14pmIschemic cardiomyopathyinactiveJune 2024 4:14pmPrimary hypertensioninactiveJune 2024 4:14pmASHD (arteriosclerotic heart disease)acuteJuly 2024 1:53pm Atrial fibrillationacuteJuly 2024 1:53pmChronic HFrEF (heart failure with reduced ejection fraction)acuteJuly 2024 1:53pmGAD (generalized anxiety disorder)acuteJuly 2024 1:53pmHypercholesterolemiaacuteJuly 2024 1:53pmHypothyroidacuteJuly 2024 1:53pmOSA (obstructive sleep apnea)acute October 08, 2024 1:53pmPseudogoutacuteJuly 2024 1:53pmGreater trochanteric bursitis of right hipacuteJuly 2024 1:54pmHistory of total right hip arthroplastyacuteJuly 2024 1:54pmPersistent atrial fibrillationacute December 09, 2024 8:11amGreater trochanteric bursitis of right hipacute December 15, 2024 10:51amOther chronic painacuteSeptember 2024 10:51am Other spondylosis with radiculopathy, lumbar regionacuteSeptember 2024 10:51am [facility] Work Phone: 1(774) 427-306106-23-2025 Evaluation note* Diagnosis Onset Date Resolution Status Admit Date Abnormal cardiovascular stress test acuteJune 2024 3:07amASHD (arteriosclerotic heart disease)acuteJune 2024 3:07amAtrial fibrillationacuteJune 2024 3:07amHypercholesterolemia acuteJune 2024 3:07amHypothyroidacuteJune 2024 3:07amOSA (obstructive sleep apnea)acuteJune 2024 3:07amPresence of Watchman left atrial appendage closure deviceacuteJun2024 3:07amChest painresolvedJune 2024 3:07amASHD (arteriosclerotic heart disease)acuteJune 2024 4:14pmHypercholesterolemiaacuteJune 2024 4:14pmPersistent atrial fibrillationacuteJune 2024 4:14pmPresence of Watchman left atrial appendage closure deviceacuteJune 2024 4:14pmAcute hypotensionresolvedJune 2024 4:14pmAKI (acute kidney injury)resolvedJune 2024 4:14pm Atypical chest painresolvedJune 2024 4:14pmBlurred vision, bilateral resolvedJune 2024 4:14pmPre-syncoperesolvedJune 2024 4:14pmIschemic cardiomyopathyinactiveJune 2024 4:14pmPrimary hypertensioninactiveJune 2024 4:14pmASHD (arteriosclerotic heart disease)acuteJuly 2024 1:53pm Atrial fibrillationacuteJuly 2024 1:53pmChronic HFrEF (heart failure with reduced ejection fraction)acuteJuly 2024 1:53pmGAD (generalized anxiety disorder)acuteJuly 2024 1:53pmHypercholesterolemiaacuteJuly 2024 1:53pmHypothyroidacuteJuly 2024 1:53pmOSA (obstructive sleep apnea)acute October 08, 2024 1:53pmPseudogoutacuteJuly 2024 1:53pmGreater trochanteric bursitis of right hipacuteJuly 2024 1:54pmHistory of total right hip arthroplastyacuteJuly 2024 1:54pmPersistent atrial fibrillationacute December 09, 2024 8:11amLow back painacuteSeptember 2024 10:51amOther chronic painacuteSeptember 2024 10:51amOther spondylosis with radiculopathy, lumbar regionacuteSeptember 2024 10:51amRib fractureacute December 26, 2024 9:33amChest painnoneactiveSeptember 2024 9:33am [facility] Work Phone: 1([phone]) 304-963206-20-2025 Telephone encounter Note* Telephone Encounter - Debra Luna RN - 09/26/2024 3:36 PM EDT Pt returning call Read message below Voiced understanding No further questions [facility]06-20-2025 Miscellaneous Notes* Telephone Encounter - Debra Luna [...] osteoarthritis/PMR/gout in 6-12months Thankyou. documented in this encounterWilson [facility]06-20-2025 Instructions* Patient Instructions* Heladio Pineda MD - [...] touching your toes, sit-ups, using row machine emt intermediate pain recommendations per primary care provider/pain clinic Nonfasting labs as scheduled Thank you! documented in this encounterWilson [facility]06-20-2025 Telephone encounter Note * Telephone Encounter - Melany Pearson MA - 09/26/2024 12:56 PM EDT LMTCB [facility]06-20-2025 NoteHNO ID: [id number] Author: HELADIO PINEDA MD Service: ? Author [...] visit. Either the patient or their legal videotape sales representative has been informed of the [...] hips, knees, all over, worse when sitting fdc. Tried mobic this week mild response. Likes [...] consider trial of dmards/k (more content not included)...[facility]06-20-2025 History of Present illness Narrative* Heladio [...] visit. Either the patient or their legal videotape sales representative has been informed of the [...] if PMR recurs may consider trial of dmards/alice/marlen discuss with patient, OFF prednisone due to [...] hands, hips, knees, allover, worse when sitting emt intermediate. Tried mobic this week mild response. [...] xrays-Marked triscaphe joint space narrowing bilaterally with nuoy-ky-rxkt contact andsubchondral sclerosis. 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 Tried mobic few weeks ago with mild [...] touching your toes, sit-ups, using row machine emt intermediate pain recommendations per primary care provider/pain [...] video & audio (virtual) or phone or [id number]-fd-[id number] patient care, completing clinical documentation, obtaining and/or [...] cc Vitaliy Brower DO documented in this encounterWilson Health06-20-2025 Telephone encounter Note * Telephone Encounter - [...] on a speedy recovery! Warm regards, :) [facility]06-19-2025 Telephone encounter Note* Telephone Encounter - Yannick [...] he will walk in and do them [facility]06-07-2025 Telephone encounter Note* Telephone Encounter - Heladio Pineda MD - 09/13/2024 10:21 AM EDT Please call patient to schedule Nonfasting labs Follow up for osteoarthritis/PMR/gout in 6-12months Thankyou. [facility]06-07-2025 Instructions* Patient Instructions* Heladio Pineda MD - [...] touching your toes, sit-ups, using row machine fdc pain recommendations per primary care provider/pain clinic Nonfasting labs as scheduled Thank you! documented in this encounterWilson Health06-07-2025 History of Present illness Narrative* Heladio Pineda [...] visit. Either the patient or their legal videotape sales representative has been informed of the [...] hands, hips, knees, allover, worse when sitting fdc. Tried mobic this week mild response. 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 Mild narrowing of the [...] of multiple sites M35.3 PMR (polymyalgia rheumatica) ([facility]) R76.8 CHENCHO positive M79.641, M79.642 Bilateral hand pain Z79.899 Long-term use of high-risk medication M25.551, M25.552, G89.29 Chronic hip pain, bilateral Mr. Steven is a 63 year old Wmale with PMH FER/waiting CPAP, BPH, CAD, thyroid disease, 1st great toe/start alloupurinol ~2007, left index finger phue abdick 1979, Afib temporarily,S/p b/l TKR ~2012 bone [...] ~2012 bone on bone S/p L THR 06/2021 Summer 2021 weakness arms, legs, sore and painful after [...] hands, hips, knees, allover, worse when sitting fdc. Tried mobic this week mild response. Likes [...] touching your toes, sit-ups, using row machine fdc pain recommendations per primary care provider/pain clinic [...] via video& audio (virtual) or phone or opec-qq-fztj patient care, completing clinical documentation, obtaining and/or [...] cc Vitaliy Brower DO documented in this encounterWilson Health06-07-2025 NoteHNO ID: [id number] Author: HELADIO PINEDA MD Service: ? Author [...] visit. Either the patient or their legal videotape sales representative has been informed of the [...] hips, knees, all over, worse when sitting emt intermediate. Tried mobic this week mild response. Likes celebrex better and wants to restart celebrex. Reports pain 6-/10. Has minimal AM stiffness. High stress with [...] rheum care. No falls/f (more content not included)...[facility] 09-09-2024 [place] [address] Cardioversion Procedure Note Signed Patient: Esme Steven MR#: [id number] : 1960 Acct:[id number] Age/Sex: 63 / M Adm Date: 5 Loc: Room: Type: [facility] Attending Dr: Antonio Steele MD [...] MD 09/09/24 1228 Signed By: 09/09/24 1230 [facility]05-27-2025 Telephone encounter Note* Telephone Encounter - Ileana George - 09/02/2024 10:41 AM EDT Patient scheduled on 09/13/2024 [facility]05-27-2025 Miscellaneous Notes* Telephone Encounter - Ileana George - 09/02/2024 10:41 AM EDT Patient scheduled on 09/13/2024 * Telephone Encounter - Heladio Pineda MD - 08/31/2024 1:09 PM EDT Please call patent To schedule nonfasting labs Active in 07/2024. Ok to complete at [facility]. Please schedule earlier follow up visit for PMR May offer [facility] (virtual/phone only) 09/13/24 and 10/11/24 are open. Thank you. documented in this encounterWilson [facility]05-25-2025 Telephone encounter Note * Telephone Encounter - Heladio Pineda MD - 08/31/2024 1:09 PM EDT Please call patent To schedule nonfasting labs Active in 07/2024. Ok to complete at [facility]. Please schedule earlier follow up visit for PMR May offer [facility] Clinic (virtual/phone only) 09/13/24 and 10/11/24 are open. Thank you. [facility]05-16-2025 History of Present illness Narrative* Antonio Steele [...] of breath. His recentstress test showed inferolateral PA with mild area of ashia-infarction ischemia 3. [...] (Plavix) 75 mg tablet 1 tablet, Daily (629) Eliquis 5 mg tablet 1 tablet, Every [...] Daily valsartan (DIOVAN) 80 mg, oral, Daily (629) Assessment/Plan 1. Persistent atrial fibrillation (Multi) ECG [...] my direction and personally dictated by me. Tiffani reviewed the chart and agree that the record accurately reflects my personal performance of the history, physical exam, discussion and plan. documented in this [facility] Work Phone: 1(372) 925-864805-16-2025 Instructions* Patient Instructions* Zo Castro LPN - [...] through Care Everywhere. * Heart Healthy Diet (Belgian) documented in this [facility] Work Phone: 1([phone]) 989-344304-23-2025 Evaluation note* Diagnosis Onset Date Resolution Status Admit Date Purpura of skin due to vascular fragilit y deletedApril 2024 9:44amAbdominal painnoneactiveApril 2024 9:44am Diverticulitis large intestinenoneactiveApril 2024 9:44amPrimary osteoarthritis, right handacuteApril 2024 9:03amContusion of left hand deletedApril 2024 9:03amLeft hand paindeletedApril 2024 9:03am History of revision of total replacement of left hip jointacuteApril 2024 11:36amContusion of left thighdeletedApril 2024 11:36amASHD (arteriosclerotic heart disease)acuteMay 2024 12:48pmAtrial fibrillation acuteMay 2024 12:48pmHyperlipidemiaacuteMay 2024 12:48pmPresence of Watchman left atrial appendage closure deviceacuteMay 2024 12:48pmPrimary hypertensionacuteMay 2024 12:48pmChest painresolvedMay 2024 12:48pm Unstable anginaresolvedMay 2024 12:48pm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 with RVRdeletedMay 2024 12:48pmASHD (arteriosclerotic heart disease)acuteMay 2024 4:09pmAtrial fibrillationacuteMay 2024 4:09pmGAD (generalized anxiety disorder)acuteMay 2024 4:09pmHypercholesterolemiaacuteMay 2024 4:09pmHypothyroidacuteMay 2024 4:09pmOSA (obstructive sleep apnea) acuteMay 2024 4:09pmPrimary hypertensionacuteMay 2024 4:09pmAbnormal cardiovascular stress testacuteJune 2024 3:07amASHD (arteriosclerotic heart disease)acuteJune 2024 3:07amAtrial fibrillationacuteJune 2024 3:07amHypercholesterolemiaacuteJune 2024 3:07amHypothyroidacuteJune 2024 3:07amOSA (obstructive sleep apnea)acuteJune 2024 3:07amPresence of Watchman left atrial appendage closure deviceacuteJune 2024 3:07amChest painresolvedJune 2024 3:07amAcute hypotensionacuteJune 2024 4:14pm MIESHA (acute kidney injury)acuteJun2024 4:14pmASHD (arteriosclerotic heart disease)acuteJune 2024 4:14pmAtypical chest painacuteJune 2024 4:14pmBlurred vision, bilateralacuteJun2024 4:14pmHypercholesterolemia acuteJune 2024 4:14pmIschemic cardiomyopathyacuteJune 2024 4:14pm Persistent atrial fibrillationacuteJun2024 4:14pmPre-syncopeacuteJune 2024 4:14pmPresence of Watchman left atrial appendage closure deviceacute September 30, 2024 4:14pmPrimary hypertensionacuteJun2024 4:14pm [facility] Work Phone: 1(106) 395-555204-23-2025 Evaluation note* Diagnosis Onset Date Resolution Status Admit Date Purpura of skin due to vascular fragilit y deletedApril 2024 9:44amAbdominal painnoneactiveApril 2024 9:44am Diverticulitis large intestinenoneactiveApril 2024 9:44amPrimary osteoarthritis, right handacuteApril 2024 9:03amContusion of left hand deletedApril 2024 9:03amLeft hand paindeletedApril 2024 9:03am History of revision of total replacement of left hip jointacuteApril 2024 11:36amContusion of left thighdeletedApril 2024 11:36amASHD (arteriosclerotic heart disease)acuteUty 2024 12:48pmAtrial fibrillation acuteMay 2024 12:48pmHyperlipidemiaacuteMay 2024 12:48pmPresence of Watchman left atrial appendage closure deviceacuteAugust 11, 2024 12:48pmChest painresolvedMay 2024 12:48pmUnstable anginaresolvedMay 2024 12:48pm Primary hypertensioninactiveMay 2024 12:48pm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 with RVRdeletedMay 2024 12:48pmASHD (arteriosclerotic heart disease)acute August 19, 2024 4:09pmAtrial fibrillationacuteMay 2024 4:09pmGAD (generalized anxiety disorder)acuteMa2024 4:09pmHypercholesterolemia acuteMay 2024 4:09pmHypothyroidacuteMay 2024 4:09pmOSA (obstructive sleep apnea)acuteMay 2024 4:09pmPrimary hypertensioninactiveMay 2024 4:09pmAbnormal cardiovascular stress testacuteJune 2024 3:07amASHD (arteriosclerotic heart disease)acuteJun2024 3:07amAtrial fibrillation acuteJun2024 3:07amHypercholesterolemiaacuteJune 2024 3:07am HypothyroidacuteJune 2024 3:07amOSA (obstructive sleep apnea)acuteJun2024 3:07amPresence of Watchman left atrial appendage closure deviceacute September 29, 2024 3:07amChest painresolvedJune 2024 3:07amASHD (arteriosclerotic heart disease)acuteJun2024 4:14pmHypercholesterolemia acuteJun2024 4:14pmPresence of Watchman left atrial appendage closure deviceacuteJun2024 4:14pmAcute hypotensionresolvedJune 2024 4:14pm MIESHA (acute kidney injury)resolvedJun2024 4:14pmAtypical chest pain resolvedJun2024 4:14pmBlurred vision, bilateralresolvedJune 2024 4:14pmPre-syncoperesolvedJune 2024 4:14pmIschemic cardiomyopathyinactive Aura 2024 4:14pmPersistent atrial fibrillationinactiveJune 2024 4:14pmPrimary hypertensioninactiveJune 2024 4:14pmASHD (arteriosclerotic heart disease)acuteJuly 2024 1:53pmAtrial fibrillationacuteJuly 2024 1:53pmGAD (generalized anxiety disorder)acuteJuly 2024 1:53pm HypercholesterolemiaacuteJuly 2024 1:53pmHypothyroidacuteJuly 2024 1:53pmOSA (obstructive sleep apnea)acuteJuly 2024 1:53pm [facility] Work Phone: 1([phone]) [phone] Evaluation note* Diagnosis Onset Date Resolution Status Admit Date Purpura of skin due to vascular fragilit y deletedApril 2024 9:44amAbdominal painnoneactiveApril 2024 9:44am Diverticulitis large intestinenoneactiveApril 2024 9:44amPrimary osteoarthritis, right handacuteApril 2024 9:03amContusion of left hand deletedApril 2024 9:03amLeft hand paindeletedApril 2024 9:03am History of revision of total replacement of left hip jointacuteApril 2024 11:36amContusion of left thighdeletedApril 2024 11:36amASHD (arteriosclerotic heart disease)acuteMay 2024 12:48pmAtrial fibrillation acuteMay 2024 12:48pmHyperlipidemiaacuteMay 2024 12:48pmPresence of Watchman left atrial appendage closure deviceacuteMay 2024 12:48pmChest painresolvedMay 2024 12:48pmUnstable anginaresolvedMay 2024 12:48pm Primary hypertensioninactiveMay 2024 12:48pm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 with RVRdeletedMay 2024 12:48pmASHD (arteriosclerotic heart disease)acute August 19, 2024 4:09pmAtrial fibrillationacuteMay 2024 4:09pmGAD (generalized anxiety disorder)acuteMay 2024 4:09pmHypercholesterolemia acuteMay 2024 4:09pmHypothyroidacuteMay 2024 4:09pmOSA (obstructive sleep apnea)acuteMay 2024 4:09pmPrimary hypertensioninactiveMay 2024 4:09pmAbnormal cardiovascular stress testacuteJune 2024 3:07amASHD (arteriosclerotic heart disease)acuteJune 2024 3:07amAtrial fibrillation acuteJune 2024 3:07amHypercholesterolemiaacuteJune 2024 3:07am HypothyroidacuteJune 2024 3:07amOSA (obstructive sleep apnea)acuteJune 2024 3:07amPresence of Watchman left atrial appendage closure deviceacute September 29, 2024 3:07amChest painresolvedJune 2024 3:07amASHD (arteriosclerotic heart disease)acuteJune 2024 4:14pmHypercholesterolemia acuteJune 2024 4:14pmPresence of Watchman left atrial appendage closure deviceacuteJun2024 4:14pmAcute hypotensionresolvedJun2024 4:14pm MIESHA (acute kidney injury)resolvedJun2024 4:14pmAtypical chest pain resolvedJune 2024 4:14pmBlurred vision, bilateralresolvedJun2024 4:14pmPre-syncoperesolvedJun2024 4:14pmIschemic cardiomyopathyinactive September 30, 2024 4:14pmPersistent atrial fibrillationinactiveJune 2024 4:14pmPrimary hypertensioninactiveJune 2024 4:14pmASHD (arteriosclerotic heart disease)acuteJuly 2024 1:53pmAtrial fibrillationacuteJuly 2024 1:53pmChronic HFrEF (heart failure with reduced ejection fraction)acuteJuly 2024 1:53pmGAD (generalized anxiety disorder)acuteJuly 2024 1:53pm HypercholesterolemiaacuteJuly 2024 1:53pmHypothyroidacuteJuly 2024 1:53pmOSA (obstructive sleep apnea)acuteJuly 2024 1:53pmPseudogoutacuteJuly 2024 1:53pmGreater trochanteric bursitis of right hipacuteJuly 2024 1:54pmHistory of total right hip arthroplastyacuteJuly 2024 1:54pm [facility] Work Phone: 1(636) 492-280903-31-2025 Telephone encounter Note* Telephone Encounter - Heladio [...] above. Please process accordingly. Heladio Pineda MD [facility]03-31-2025 Miscellaneous Notes* Telephone Encounter - Heladio Pineda [...] accordingly. Heladio Pineda MD documented in this encounterWilson Health03-25-2025 Evaluation note* Diagnosis Onset Date Resolution Status Admit Date ASHD (arteriosclerotic heart disease) acuteMarch 2024 1:11pmGAD (generalized anxiety disorder)acuteMarch 2024 1:11pmGastroesophageal reflux disease with esophagitis without hemorrhage acuteMarch 2024 1:11pmHypothyroidacuteMarch 2024 1:11pmMacrocytosis without anemiaacuteMarch 2024 1:11pm [facility] Work Phone: 1([phone]) 932-998103-25-2025 Evaluation note* Diagnosis Onset Date Resolution Status Admit Date ASHD (arteriosclerotic heart disease) acuteMarch 2024 1:11pmGAD (generalized anxiety disorder)acuteMarch 2024 1:11pmGastroesophageal reflux disease with esophagitis without hemorrhage acuteMarch 2024 1:11pmHypothyroidacuteMarch 2024 1:11pmMacrocytosis without anemiaacuteMarch 2024 1:11pmPurpura of skin due to vascular fragilityacuteApril 2024 9:44amAbdominal painnoneactiveApril 2024 9:44amDiverticulitis large intestinenoneactiveApril 2024 9:44am [facility] Work Phone: 1(282) 160-865303-25-2025 Evaluation note* Diagnosis Onset Date Resolution Status Admit Date ASHD (arteriosclerotic heart disease) acuteMarch 2024 1:11pmGAD (generalized anxiety disorder)acuteMarch 2024 1:11pmGastroesophageal reflux disease with esophagitis without hemorrhage acuteMarch 2024 1:11pmHypothyroidacuteMarch 2024 1:11pmMacrocytosis without anemiaacuteMarch 2024 1:11pmPurpura of skin due to vascular fragilityacuteApril 2024 9:44amAbdominal painnoneactiveApril 2024 9:44amDiverticulitis large intestinenoneactiveApril 2024 9:44amContusion of left handacuteApril 2024 9:03amLeft hand painacuteApril 2024 9:03amPrimary osteoarthritis, right handacuteApril 2024 9:03am [facility] Work Phone: 1([phone]) 900-777603-25-2025 Evaluation note* Diagnosis Onset Date Resolution Status Admit Date ASHD (arteriosclerotic heart disease) acuteMarch 2024 1:11pmGAD (generalized anxiety disorder)acuteMarch 2024 1:11pmGastroesophageal reflux disease with esophagitis without hemorrhage acuteMarch 2024 1:11pmHypothyroidacuteMarch 2024 1:11pmMacrocytosis without anemiaacuteMar2024 1:11pmPurpura of skin due to vascular fragilityacuteApril 2024 9:44amAbdominal painnoneactiveApril 2024 9:44amDiverticulitis large intestinenoneactiveApril 2024 9:44amContusion of left handacuteApril 2024 9:03amLeft hand painacuteApril 2024 9:03amPrimary osteoarthritis, right handacuteApril 2024 9:03amContusion of left thighacuteApril 2024 11:36amHistory of revision of total replacement of left hip jointacuteApril 2024 11:36am [facility] Work Phone: 1([phone]) 708-600803-25-2025 Evaluation note* Diagnosis Onset Date Resolution Status Admit Date ASHD (arteriosclerotic heart disease) acuteMarch 2024 1:11pmGAD (generalized anxiety disorder)acuteMarch 2024 1:11pmGastroesophageal reflux disease with esophagitis without hemorrhage acuteMarch 2024 1:11pmHypothyroidacuteMarch 2024 1:11pmMacrocytosis without anemiaacuteMarch 2024 1:11pmPurpura of skin due to vascular fragilityacuteApril 2024 9:44amAbdominal painnoneactiveApril 2024 9:44amDiverticulitis large intestinenoneactiveApril 2024 9:44amContusion of left handacuteApril 2024 9:03amLeft hand painacuteApril 2024 9:03amPrimary osteoarthritis, right handacuteApril 2024 9:03amContusion of left thighacuteApril 2024 11:36amHistory of revision of total replacement of left hip jointacuteApril 2024 11:36amAtrial fibrillationacuteMay 2024 12:48pmChest painacuteMay 2024 12:48pmUnstable anginaacuteMay 2024 12:48pm [facility] Work Phone: 1([phone]) 280-158403-25-2025 Evaluation note* Diagnosis Onset Date Resolution Status Admit Date ASHD (arteriosclerotic heart disease) acuteMarch 2024 1:11pmGAD (generalized anxiety disorder)acuteMarch 2024 1:11pmGastroesophageal reflux disease with esophagitis without hemorrhage acuteMarch 2024 1:11pmHypothyroidacuteMarch 2024 1:11pmMacrocytosis without anemiaacuteMarch 2024 1:11pmPurpura of skin due to vascular fragilityacuteApril 2024 9:44amAbdominal painnoneactiveApril 2024 9:44amDiverticulitis large intestinenoneactiveApril 2024 9:44amContusion of left handacuteApril 2024 9:03amLeft hand painacuteApril 2024 9:03amPrimary osteoarthritis, right handacuteApril 2024 9:03amContusion of left thighacuteApril 2024 11:36amHistory of revision of total replacement of left hip jointacuteApril 2024 11:36amASHD (arteriosclerotic heart disease)acuteMay 2024 12:48pmAtrial fibrillationacuteMay 2024 12:48pm HyperlipidemiaacuteMay 2024 12:48pm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 with RVR acuteAugust 11, 2024 12:48pmPresence of Watchman left atrial appendage closure deviceacuteMa2024 12:48pmPrimary hypertensionacuteMay 2024 12:48pm Chest painresolvedMay 2024 12:48pmUnstable anginaresolvedMay 2024 12:48pmASHD (arteriosclerotic heart disease)acuteMa2024 4:09pmAtrial fibrillationacuteMa2024 4:09pmGAD (generalized anxiety disorder)acuteAugust 19, 2024 4:09pmHypercholesterolemiaacuteMay 2024 4:09pmHypothyroidacute May 2024 4:09pmOSA (obstructive sleep apnea)acuteMa2024 4:09pm Primary hypertensionacuteAugust 19, 2024 4:09pm [facility] Work Phone: 1([phone]) 205-538703-24-2025 History of Present illness Narrative* Heladio Pineda [...] Cans of Beer (12oz) per week 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 Mild narrowing of the [...] Toe and heel walk normal. 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 No Do you need an certified court/medical interpreter? No documented in this encounterWilson Health03-24-2025 NoteHNO ID: [id number] Author: HELADIO PINEDA MD Service: ? Author [...] but happy with rheum (more content not included)...[facility]03-23-2025 Instructions* Patient Instructions* Heladio Pineda MD [...] touching your toes, sit-ups, using row machine emt intermediate pain recommendations per primary care provider/pain [...] Ab, Total Negative Negative documented in this encounterWilson Health01-24-2025 Evaluation note* Diagnosis Onset Date Resolution Status Admit Date Acute bronchitis due to other specified organisms acuteJanuary 2024 2:00pmChest wall contusionacuteJanuary 2024 2:00pm [facility] Work Phone: [phone]) [phone] Miscellaneous Notes* Telephone Encounter - Bert Newman LPN - 04/02/2024 12:37 AM EST Con 06/04/23 Bmp, mag 06/12/23 [facility]* Telephone Encounter - Bert Newman LPN - 04/02/2024 12:37 AM EST Con 06/04/23 Bmp, mag 06/12/23 [facility]12-09-2024 Evaluation note* Diagnosis Onset Date Resolution Status Admit Date Acute bronchitis due to other specified organisms acuteDecember 2023 3:02pmASHD (arteriosclerotic heart disease)acuteDecember 2023 3:02pmCoughacuteDecember 2023 3:02pmAcute bronchitis due to other specified organismsacuteJan2024 2:00pmChest wall contusionacute May 02, 2024 2:00pm [facility] Work Phone: 1([phone]) 257-527211-07-2024 History of Present illness Narrative* Antonio Steele [...] exam, discussion and plan. documented in this [facility] Work Phone: 1([phone]) 955-462611-07-2024 Instructions* Patient Instructions* Zo Castro LPN - [...] through Care Everywhere. * Heart Healthy Diet (Belgian) documented in this [facility] Work Phone: 1([phone]) 666-302911-05-2024 Evaluation note* Diagnosis Onset Date Resolution Status Admit Date Primary osteoarthritis, right hand acuteNovember 2023 1:35pmBiceps tendonitis on rightacuteNovember 2023 9:37amRotator cuff syndrome of right shoulderacuteNovember 2023 9:37am Traumatic complete tear of left rotator cuffacuteNovember 2023 9:37am [facility] Work Phone: 1(154) 562-486311-05-2024 Evaluation note* Diagnosis Onset Date Resolution Status Admit Date Primary osteoarthritis, right hand acuteNovember 2023 1:35pmBiceps tendonitis on rightacuteNovember 2023 9:37amRotator cuff syndrome of right shoulderacuteNovember 2023 9:37am Traumatic complete tear of left rotator cuffacuteNovember 2023 9:37amAcute bronchitis due to other specified organismsacuteDecember 2023 3:02pmASHD (arteriosclerotic heart disease)acuteDecember 2023 3:02pmCoughacuteDecember 2023 3:02pmAcute bronchitis due to other specified organismsacuteJanuary 2024 2:00[facility] Work Phone: 1([phone]) 425-806710-22-2024 Hospital course Narrative* Bruno Almaguer MD - [...] Center 02/14/2024 2:00 PM Antonio Steele MD [id number] [place] 04/28/2024 8:40 AM Antonio Steele MD [id number] [place] 05/20/2024 10:[id number] 1 [id number] [facility] Bruno Almaguer MD documented in this [facility] Work Phone: 1([phone]) 469-192310-22-2024 Note* Post-Procedure Note - Bruno Almaguer MD - 01/29/2024 12:08 PM EDT Physician Transition of Care Summary Invasive Cardiovascular Lab Procedure Date: 01/29/2024 Attending: * Bird Kowalski - Primary Resident/Fellow/Other Assistant Baseball Coach: Surgeons and Role: * Bruno Almaguer MD - Fellow Indications: Pre-op Diagnosis * Atrial fibrillation, unspecified type (Multi) [I48.91] Post-procedure diagnosis: Post-op Diagnosis * Atrial fibrillation, unspecified type (Multi) [I48.91] Procedure(s): LAAO (Left Atrial Appendage Occlusion) 30368 - OR PERQ CLSR TCAT L ATR APNDGE W/ENDOCARDIAL IMPLNT OR PERQ CLSR TCAT L ATR APNDGE W/ENDOCARDIAL IMPLNT [55326] Description of the Procedure: S/p MARIO closure [...] Closure, 27mm Watchman Flx Pro Laac - [id number] - Implanted Inventory item: DEVICE, CLOSURE, 27MM WATCHMAN FLX PRO LAAC Model/Cat number: [id number] Hat And Cap Opener: [employer] Lot number: [id number] Device identifier: [id number] As of 01/29/2024 Status: Implanted Anticoagulation/Antiplatelet Plan: [...] by: Bruno Almaguer MD, 01/29/2024 1:45 PM [facility] Work Phone: 1([phone]) 971-313910-22-2024 Miscellaneous Notes* Post-Procedure Note - Bruno Almaguer MD - 01/29/2024 12:08 PM EDT Physician Transition of Care Summary Invasive Cardiovascular Lab Procedure Date: 01/29/2024 Attending: * Bird Kowalski - Primary Resident/Fellow/Other Assistant Baseball Coach: Surgeons and Role: * Bruno Almaguer MD - Fellow Indications: Pre-op Diagnosis * Atrial fibrillation, unspecified type (Multi) [I48.91] Post-procedure diagnosis: Post-op Diagnosis * Atrial fibrillation, unspecified type (Multi) [I48.91] Procedure(s): LAAO (Left Atrial Appendage Occlusion) 40212 - OR PERQ CLSR TCAT L ATR APNDGE W/ENDOCARDIAL IMPLNT OR PERQ CLSR TCAT L ATR APNDGE W/ENDOCARDIAL IMPLNT [08423] Description of the Procedure: S/p MARIO closure [...] Closure, 27mm Watchman Flx Pro Laac - [id number] - Implanted Inventory item: DEVICE, CLOSURE, 27MM WATCHMAN FLX PRO LAAC Model/Cat number: [id number] Hat And Cap Opener: [employer] Lot number: [id number] Device identifier: [id number] As of 01/29/2024 Status: Implanted Anticoagulation/Antiplatelet Plan: [...] Plan ASA 3 Mild [facility] Work Phone: 1([phone]) 869-437310-22-2024 History of Present illness Narrative* Olivier Hopkins, PharmD - 01/29/2024 10:30 AM EDT Pharmacy Medication History Review Esme Steven is a 63 y.o. male admitted for Atrial fibrillation (Multi). Pharmacy reviewed the patient's hjays-jp-[id number] medications and allergies for accuracy. 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 Prior to Admission Medications Prescriptions Last [...] medrol Patient declines M2B at discharge. Sources: [facility] Pharmacy dispense history Patient interview Additional Comments: None Olivier Hopkins PharmD Transitions of Care Pharmacist 01/29/24 Secure Chat preferred If no response call [phone] or [place] [facility] Work Phone: 1([phone]) [phone] Note* Pre-Sedation Documentation - Bruno Almaguer MD - 01/29/2024 10:27 AM EDT Patient: Esme Steven NPO guidelines met: Yes Physical Exam Airway Mallampati: III Cardiovascular Dental Pulmonary Plan ASA 3 Mild [facility] Work Phone: 1([phone]) 553-179010-22-2024 History and physical note* Bruno Almaguer MD [...] care of this patient. Bruno Almaguer MD T [facility] Work Phone: 1([phone]) 496-446210-22-2024 History and physical note* Bruno Almaguer MD [...] patient. Bruno Almaguer MD documented in this [facility] Work Phone: [phone]) [phone] Hospital Discharge instructions* Discharge Instructions* Sammi Moreno Loredo, VOCATIONAL ED INSTRUCTOR-TROUBLE CLERK - 01/29/2024 9:41 AM EDT Watchman Discharge [...] you have any concerns, youmay contact the Mica Builder or if any of these symptoms become excessive, contact your metal casting trades worker tonny to the emergency room. No tub [...] you have any questions or concerns - [phone] documented in this [facility] Work Phone: 1(336) 401-292409-23-2024 [place] [facility] History of Present illness Narrative* Bird [...] atrial fibrillation. 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 He is frequently working with heavy [...] vascular complications, sedation related complications, risk of PA, CVA, device embolization, pericardial tamponade and . [...] care of this patient. Bird Kowalski MD Saw Tailer, Interventional Cardiology Fellowship Program [facility] Office documented in this encounterChildren[facility] Work Phone: [phone]) 724-997909-09-2024 Telephone encounter Note* Telephone Encounter - Korin Leyva - 2023 9:29 AM EDT Called patient LVM regards to completing labs as directed below [facility]09-09-2024 Miscellaneous Notes* Telephone Encounter - Korin Leyva [...] Pineda MD * Telephone Encounter - Melany PearsonKAE - 12/14/2023 9:35 AM EDT Images from the original note were not included. Most recent Rheumatology visit: 07/05/2023 (with Heladio Pineda) Last Bone Density on file: 06/28/2023 Rheumatology Care Team: None on file Recent Office Visits - This Specialty 07/05/2023 PMR (polymyalgia rheumatica) ([facility]) Rheumatology Heladio Pineda MD 03/05/2023 PMR (polymyalgia rheumatica) ([facility]) Rheumatology Heladio Pineda MD 01/05/2023 PMR (polymyalgia rheumatica) ([facility]) Rheumatology Heladio Pineda MD Upcoming Rheumatology Appointments - Next 365 Days Visit Type Date Time Department [facility] 03/17/2024 9:00 AM [facility] CBC: None on file [...] Expires Ordered VITAMIN D 25 HYDROXY [SQVITD] 07/05/0207/08/24 07/09/23 Auth. provider: Heladio Pineda MD Assoc. [...] and advise. Maryann Ramos documented in this encounterWilson Health09-07-2024 Telephone encounter Note * Telephone Encounter - [...] above. Please process accordingly. Heladio Pineda MD [facility]09-06-2024 Telephone encounter Note* Telephone Encounter - Melany Pearson MA - 12/14/2023 9:35 AM EDT Images from the original note were not included. Most recent Rheumatology visit: 07/05/2023 (with Heladio Pineda) Last Bone Density on file: 06/28/2023 Rheumatology Care Team: None on file Recent Office Visits - This Specialty 07/05/2023 PMR (polymyalgia rheumatica) ([facility]) Rheumatology Heladio Pineda MD 03/05/2023 PMR (polymyalgia rheumatica) ([facility]) Rheumatology Heladio Pineda MD 01/05/2023 PMR (polymyalgia rheumatica) ([facility]) Rheumatology Heladio Pineda MD Upcoming Rheumatology Appointments - Next 365 Days Visit Type Date Time Department [facility] 03/17/2024 9:00 AM [facility] CBC: None on file [...] chronic gout of multiple sites without tophus [facility]09-05-2024 Telephone encounter Note* Telephone Encounter - Maryann Prince - 12/13/2023 4:06 PM EDT Patient phones requesting refills as follows: Requested Prescriptions Pending Prescriptions Disp Refills methylPREDNISolone (MEDROL) 4 mg 21 tablet 1 Sig: Day 1=6tabs with food, Day 2=5tabs, Day 3=4tabs, Day 4=3tabs, Day 5=2tabs, Day 6=1tab, No NSAIDs on med Please review and advise. Maryann Ramos [facility]07-11-2024 History of Present illness Narrative* Antonio Steele [...] Scribe Attestation By signing my name below, IPearl LPN , Scribjackie attest that this documentation [...] exam, discussion and plan. documented in this encounterChildren's Hospital of [facility] Work Phone: 1(184) 767-666307-11-2024 Instructions* Patient Instructions* Pearl Bae LPN - [...] Provided instructions on exercise documented in this encounterChildren's Hospital of [facility] Work Phone: 1(817) 242-312406-03-2024 Telephone encounter Note* Telephone Encounter - Lana Hartman MA - 09/10/2023 9:26 AM EDT Pt aware. Patient asked regarding Medrol. He says he is to take until completed. I stated yes. He wants to know if he should continue his other medications. I let him know Dr. Pineda didn't stated anything about any changes to his medication. Lana Hartman MA [facility]06-03-2024 Miscellaneous Notes* Telephone Encounter - Lana Hartman [...] to My Chart if tests completed at [facility]: Normal labs and no inflammation.. Recheck nonfasting [...] normal esr 9, crp<0.3; documented in this encounterWilson Health06-02-2024 Telephone encounter Note * Telephone Encounter - [...] chronic Afib. 03/05/23 normal esr 9, crp<0.3; [facility]05-29-2024 Telephone encounter Note* Telephone Encounter - Melany Pearson MA - 09/05/2023 2:40 PM EDT Spoke to pt aware of med sent. [facility]05-29-2024 Miscellaneous Notes* Telephone Encounter - Melany Samuels [...] Pineda MD * Telephone Encounter - Melany Paerson MA - 09/05/2023 10:21 AM EDT Spoke [...] - This Specialty 07/05/2023 PMR (polymyalgia rheumatica) ([facility]) Rheumatology Heladio Pineda MD 03/05/2023 PMR (polymyalgia rheumatica) ([facility]) Rheumatology Heladio Pineda MD 01/05/2023 PMR (polymyalgia rheumatica) ([facility]) Rheumatology Heladio Pineda MD Upcoming Rheumatology Appointments - Next 365 Days Visit Type Date Time Department [facility] 03/17/2024 9:00 AM [facility] CBC: Latest Ref Rng [...] [SQCRP] 08/08/23 07/08/24 07/09/23 Auth. provider: Heladio iPneda MD Assoc. diagnoses: Elevated sed rate, Elevated C-reactive protein (CRP) VITAMIN D 25 HYDROXY [SQVITD] 10/08/23 07/08/24 07/09/23 Auth. provider: Heladio Pineda MD Assoc. diagnoses: Vitamin D deficiency documented in this encounterWilson Health05-29-2024 Telephone encounter Note * Telephone Encounter - [...] above. Please process accordingly. Heladio Pineda MD [facility]05-29-2024 Telephone encounter Note* Telephone Encounter - Melany Pearson MA - 09/05/2023 10:21 AM EDT Spoke to pt he states he has been having muscle pain lately and will like to take the medrol dose pack for his pain. [facility]05-29-2024 Telephone encounter Note* Telephone Encounter - Heladio Pineda MD - 09/05/2023 9:12 AM EDT Please call patient Inquire if patient still taking medrol Is he have any pain symptoms, PMR symptoms? Per last note patient was off medrol Thank you. [facility]05-29-2024 Telephone encounter Note* Telephone Encounter - Melany Pearson MA - 09/05/2023 7:58 AM EDT Images from the original note were not included. Most recent Rheumatology visit: 07/05/2023 (with Heladio Pineda) Rheumatology Care Team: None on file Recent Office Visits - This Specialty 07/05/2023 PMR (polymyalgia rheumatica) ([facility]) Rheumatology Heladio Pineda MD 03/05/2023 PMR (polymyalgia rheumatica) ([facility]) Rheumatology Heladio Pineda MD 01/05/2023 PMR (polymyalgia rheumatica) ([facility]) Rheumatology Heladio Pineda MD Upcoming Rheumatology Appointments - Next 365 Days Visit Type Date Time Department [facility] 03/17/2024 9:00 AM [facility] CBC: Latest Ref Rng [...] Pineda MD Assoc. diagnoses: Vitamin D deficiency [facility]05-24-2024 Progress note Author Sally Alex [facility] August 31, 2023 3:45pmNote Date/TimeMay 2023 10:54am[place] [address] Hospitalist Progress Note Signed with Elida Patient: Esme Steven MR#: [id number] : 1960 Acct:[id number] Age/Sex: 62 / M Adm Date: 4 Loc: Room: [address] [place] [address] Type: ADM IN Attending Dr: Sally Alex MD Copies to: ~ ADDENDUM1 Patient was personally seen by me on the day of encounter, reviewed his history and performed gomez elements of exam and formulated the plan of care and confirmedthe resident/interns note below. Addendum Documented By: Sally Alex MD 08/31/23 1545 Addendum Signed By: <Electronically signed by Sally Alex MD> 08/31/23 1547 Date of Service: 08/31/2023 Subjective Subjective Narrative: [...] Dose Route Start Last Admin Trade Name Korina PRN Reason Stop Dose Admin Acetaminophen 650 [...] Syringe IV-PUSH 08/30/24 05:59 Not Given QSHIFT [facility] A&P - Hospitalist Assessment/Plan (1) Acute diverticulitis: [...] <Electronically signed by DO RADHA Zavala> 08/31/23 1052 [facility] Work Phone: 1(462) 691-755105-24-2024 History and physical note Author Elliott Talley [facility] August 30, 2023 11:34pmNote Date/TimeMay 2023 11:04pmStephanie Ville [id number] Hospitalist H&P Signed Patient: Esme Steven MR#: [id number] : 1960 Acct:[id number] Age/Sex: 62 / M Adm Date: 4 Loc: Room: [address] [place] [address] Type: ADM IN Attending Dr: Elliott Talley [...] were obtained and patient was given IV fl uids with Compazine and Benadryl. CT of the head without contrast, CTA of thehead and neck and CT of the abdomen pelvis were performed. There is some mild carotid artery plaque noted, but otherwise head imaging was unremarkable for acute findings. CT of the abdomen pelvis noted acute sigmoid diverticulitis findings. He was given IV Unasyn for sepsis coverage. Case was discussed between myself andED attending and patient was recommended for admission for further inpatient management. Review of Systems Review of Systems Review of systems: 10 point ROS reviewed and is negative except for that which is noted above in HPI [facility] Medical History (Updated 08/30/23 @ 23:33 by [...] mg tablet,delayed release 81 mg PO DAILY PA prevention 01/29/17 [History Confirmed 08/30/23] atorvastatin 80 [...] % (Auto) 4.4 % (.) 08/30/23 18:20 Noble % (Auto) 2.3 % (.) 08/30/23 18:20 Eos % (Auto) 0.1 % (.) 08/30/23 18:20 Baso % (Auto) 0.8 % (.) 08/30/23 18:20 Nucleat RBC Rel Count 0.0 /100 WBC (0-0.5) 08/30/23 18:20 Neut # (Auto) 13.4 x10E3/uL (1.8-7.7) H 08/30/23 18:20 Lymph # (Auto) 0.6 x10E3/uL (1.00-4.8) L 08/30/23 18:20 Noble # (Auto) 0.3 x10E3/uL (0.0-0.8) 08/30/23 18:20 [...] pH 5.5 (5.0-9.0) 08/30/23 18:45 Ur Specific [place] 1.016 (1.001-1.030) 08/30/23 18:45 Urine Protein Negative [...] his osteoarthritis for long period of time. Hassome cushingoid features -Check cortisol level -Continue Medrol [...] setting as: INPATIENT because of an expectation ofan over 2 midnight stay. Estimated length of stay (# of days): 3 Quality Measures SEPSIS Tissue perfusion reassessment (select if applicable): Tissue perfusion reassessed after bolus given FOCUSED EXAM Capillary refill: Capillary refill < 3 seconds Peripheral pulses: Pulses present bilaterally Skin color/condition: Warm and pink Documented By: Elliott Talley MD 4 0994 Signed By: <Electronically signed by Elliott Talley MD> 08/30/23 2334 [facility] Work Phone: 1(144) 823-473205-09-2024 History of Present illness Narrative* Ky Navarro [...] m (5' 10.5 ) documented in this [facility] Work Phone: 1(240) 911-953604-25-2024 Procedure [facility]04-19-2024 History of Present illness Narrative* Antonio [...] been seen in the past by the [place] [facility] group but elected to change because [...] Status post aorto-coronary artery bypass graft 7. assisted current use of anticoagulant therapy Cardioversion External [...] exam, discussion and plan. documented in this [facility] Work Phone: 1(446) 647-982404-19-2024 Instructions* Patient Instructions* Zo Castro LPN - [...] Provided instructions on exercise. documented in this encounterChildren's Hospital of [facility] Work Phone: [phone]) 112-149704-01-2024 Miscellaneous Notes* Telephone Encounter - Polly Magana [...] accordingly. Heladio Pineda MD documented in this encounterWilson Health03-25-2024 Miscellaneous Notes* Telephone Encounter - Korin Leyva - 07/02/2023 9:16 AM EDT Called and spoke with patient. Patient scheduled to see Dr. Pineda this patient going t complete labs when [facility] at [facility] * Telephone Encounter - Heladio Pineda MD [...] normal esr 9, crp<0.3; documented in this encounterWilson Health03-07-2024 Miscellaneous Notes* Telephone Encounter - Kamille Rosario RN - 06/14/2023 9:28 AM EST Pt calling in; states he is to have procedure with [facility] today but is experiencing fevers, vomiting, diarrhea. EP surgery teacher notified to call pt to cancel and reschedule. * Telephone Encounter - Georgia Harvey LPN - 06/14/2023 9:28 AM EST Called and spoke with pt, pt confirmed N/V/D and fever. Advised pt to call when symptoms resolve and will reschedule Pt stated he did miss Eliquis dose last night and no meds currently d/t vomiting. Will notify [facility] documented in this encounterC[facility] Telephone encounter Note* Telephone Encounter - Kamille Rosario RN - 06/14/2023 9:28 AM EST Pt calling in; states he is to have procedure with [facility] today but is experiencing fevers, vomiting, diarrhea. EP surgery teacher notified to call pt to cancel and reschedule. [facility]03-07-[facility] Telephone encounter Note* Telephone Encounter - Georgia Harvey LPN - 06/14/2023 9:28 AM EST Called and spoke with pt, pt confirmed N/V/D and fever. Advised pt to call when symptoms resolve and will reschedule Pt stated he did miss Eliquis dose last night and no meds currently d/t vomiting. Will notify [facility]03-05-2024 Miscellaneous Notes* Telephone Encounter - Bharti Milian RN - 06/12/2023 5:10 PM EST Called patient with [facility]'s response to start Magnesium Oxide 400 twice a day by mouth. Patient agreeable and wants RX sent to [facility]. Rx sent to sign. Has some at home and will start tonight. tkm ----- Message from Chhaya Whatley MD sent at 06/12/2023 4:40 PM EST ----- Please have patient start taking magnesium oxide 400 mg twice a day. Thank you Dirk documented in this encounterCincinnati [facility]03-05-2024 Telephone encounter Note* Telephone Encounter - Bharti Milian RN - 06/12/2023 5:10 PM EST Called patient with [facility]'s response to start Magnesium Oxide 400 twice a day by mouth. Patient agreeable and wants RX sent to [facility]. Rx sent to sign. Has some at home and will start tonight. tkm ----- Message from Chhaya Whatley MD sent at 06/12/2023 4:40 PM EST ----- Please have patient start taking magnesium oxide 400 mg twice a day. Thank you Dirk [facility]03-04-2024 Miscellaneous Notes* Telephone Encounter - Ambar Figueroa LPN - 06/11/2023 3:23 PM EST Images from the original note were not included. [facility] Card[facility]: Cardioversion or DFT Testing Procedure: Cardioversion Physician: Dr. Dirk Whatley Date/Time of Procedure: 3/7 @ 1 pm Arrival Time: 12 pm Hospital: [facility] - Address: [address] [place] [address] Registration Location: [facility] [address], parking lot P3 PRE OP REQUIREMENTS Below MUST be completed prior to your procedure or it may result in delay or cancellation [] Pre op testing: NONE [x] Pre op labs: Draw pre op labs any time between and at any [facility], no paper orders are [...] 7am Other Instructions: [x] Must have a operator and truck driver as you will be unable to drive following the procedure IMPORTANT INFORMATION Notify the EP Surgery office of any illness, infection or COVID symptoms or a COVID positive resultimmediately at [phone] If you take a blood thinner, unless [...] schedule changes or emergencies at the hospital [facility] currently allows up to two visitors at [...] you by the EP Surgery nurses. The [facility] instructions can be incorrect and provide the wrong information about your procedure. If you have any questions or concerns about preparing for your procedure, please call the EP Surgery office at [phone] For additional questions and to schedule any follow up appointments please call the main [facility] Cardiology office at [phone] documented in this encounterCincinnati [facility]03-04-2024 Telephone encounter Note* Telephone Encounter - Ambar Figueroa LPN - 06/11/2023 3:23 PM EST Images from the original note were not included. [facility]: Cardioversion or DFT Testing Procedure: Cardioversion Physician: Dr. Dirk Whatley Date/Time of Procedure: 06/13 @ 1 pm Arrival Time: 12 pm Hospital: [facility] - Address: [address] [place] [id number] Registration Location: [facility] [address], parking lot P3 PRE OP REQUIREMENTS Below MUST be completed prior to your procedure or it may result in delay or cancellation [] Pre op testing: NONE [x] Pre op labs: Draw pre op labs any time between and at any [facility], no paper orders are [...] 7am Other Instructions: [x] Must have a operator and truck driver as you will be unable to drive following the procedure IMPORTANT INFORMATION Notify the EP Surgery office of any illness, infection or COVID symptoms or a COVID positive resultimmediately at [phone] If you take a blood thinner, unless [...] schedule changes or emergencies at the hospital [facility] currently allows up to two visitors at [...] you by the EP Surgery nurses. The [facility] instructions can be incorrect and provide the wrong information about your procedure. If you have any questions or concerns about preparing for your procedure, please call the EP Surgery office at [phone] For additional questions and to schedule any follow up appointments please call the main [facility] Cardiology office at [phone] [facility]02-26-[facility] Miscellaneous Notes* Telephone Encounter - Ambar [...] not hold any medication, pamela done at [place] by me. Diagnosis persistent atrial fibrillation. History: [...] AFib. Thank you Dirk documented in this encounterCincinnati [facility]02-26-2024 Telephone encounter Note* Telephone Encounter - Ambar Figueroa LPN - 06/04/2023 3:05 PM EST ISAÍAS HEREDIA is requesting a CDVN for this pt, please review and advise thank you. [phone] Telephone encounter Note* Telephone Encounter - Chhaya [...] not hold any medication, pamela done at [place] by me. Diagnosis persistent atrial fibrillation. History: [...] in management of AFib. Thank you Dirk [facility] Work Phone: [phone]) [phone] History of Present illness Narrative* Sarai Velasco MD - 06/04/2023 2:15 PM EST Esme Steven Date of visit: 06/04/2023 Date of : 1960 Age: 62 y.o. 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 Hypertension Nonrheumatic mitral (valve) insufficiency Hyperlipidemia Other transient cerebral ischemic attacks and related syndromes Obstructive sleep apnea Dizziness Severe obesity (BMI 35.0-39.9) with comorbidity ([facility]) Coronary artery disease involving [place] coronary artery of [place] heart without angina pectoris Atrial fibrillation Allergies [...] coronary artery bypass graft with angina pectoris [place] Heart failure [place] Hyperlipidemia Hypertension Meniere disease Myocardial infarction ([facility] Nonrheumatic mitral (valve) insufficiency Obstructive sleep apnea Other transient cerebral ischemic attacks and related syndromes No data recorded No data recorded No data recorded Past Surgical History: Procedure Laterality Date APPENDECTOMY BACK SURGERY Coronary angiogram + graft/su[place] N/A 02/03/2020 Performed by John Talavera MD at [facility] CATH [facility]S CORONARY ARTERY BYPASS GRAFT [...] completed IMPRESSIONS/PLAN 1. Coronary artery disease involving [place] coronary artery of [place] heart without angina pectoris - POCT EKG [...] BROWER DO Referring Physician: Vitaliy Brower DO [facility] [place] [address] [facility]02-26-2024 Instructions* Patient Instructions* Zhane Ceja RN - 06/04/2023 2:15 PM EST Pt needs scheduled for cardioversion at [facility] next week. He has been on eliquis without missing any doses. Thx slm documented in this encounterCincinnati [facility]02-23-2024 Miscellaneous Notes* Telephone Encounter - Melinda Gomes CMA - 06/01/2023 3:32 PM EST Called patient to remind them to bring their most current copy of their medication list with them to their appt. Patient verbalizes understanding. documented in this encounterCincinnati [facility]02-23-2024 Telephone encounter Note* Telephone Encounter - Melinda Gomes CMA - 06/01/2023 3:32 PM EST Called patient to remind them to bring their most current copy of their medication list with them to their appt. Patient verbalizes understanding. [facility]02-12-2024 Evaluation note* Encounter Date Diagnosis Assessment Notes Treatment Notes Treatment Clinical Notes May, Acute pain of left knee (ICD-10 - M25.562) [facility] Other 02-12-2024 Evaluation note* Encounter Date Diagnosis Assessment Notes Treatment Notes Treatment Clinical Notes May, Pain due to internal orthopedic prosthetic devices, implants and grafts, initial encounter (ICD-10 - T84.84XA) May,resence of left artificial knee joint (ICD-10 - Z96.652)X-rays reviewed with patient, show satisfactory position of left total knee hardware. Spoke with Dr. Mendez via telephone regarding patient's sudden onset of severe pain in left knee and calf, planof care established. With patient's reports of pain [...] in the office today and providing supervision. May,ain of left calf (ICD-10 - M79.662) [facility] Other 02-07-2024 Evaluation note* Encounter Date Diagnosis Assessment Notes Treatment Notes Treatment Clinical Notes May, Aftercare following joint replac ement surgery (ICD-10 - Z47.1) May,resence of right artificial hip joint (ICD-10 - Z96.641) May,S/P total left hip arthroplasty (ICD-10 - Z96.642) [facility] At this point he is doing really well with the actual hip. We talked about being more aggressive and going to surgery to close this wound but the patient was recently diagnosed with atrial fibrillation. In my discussions with anesthesiology this would need to be worked up and evaluated by the metal casting trades worker before considering a surgery unless it was an emergency. At this point I do not feel it is actively infected so I do not feel it is a emergent surgery. He does see [facility] in [place] on 06/04/2023. Our plan at this time is to continue with the wound VAC with home health nursing who will come backon Sunday to put the wound VAC back on. I will then plan to see him in about 3 weeks which would yobany day or 2 after he has seen his metal casting trades worker. At that point in time we will make a decision on thewound. If it is continuing to heal up and closed with the assistance of the wound VAC that is fantastic but if it still needs help then we will be aggressive at that time as long as his metal casting trades worker allows. Discussed post-op dental prophylaxis. Shared decision made to continue prophylactic antibiotics indefinitely. [facility] Other 01-29-2024 Evaluation note* Encounter Date Diagnosis Assessment Notes Treatment Notes Treatment Clinical Notes Apr, Traumatic complete t ear of left rotator cuff, initial encounter (ICD-10 [...] cc bupivacaine were injected into the left subacromialspace. Patient tolerated the procedure well. We will order formal therapy for him to start before surgery as he still plans to have surgery hopefully in January 2024. He will follow up sometime in November to further discuss surgery. [facility] Other 01-24-2024 Evaluation note* Encounter Date Diagnosis Assessment Notes Treatment Notes Treatment Clinical Notes Apr, ASHD (arteriosclerotic heart dis ease) (ICD-10 - I25.10) This patient is stable without activity related CP, dyspnea or lightheadedness. They are instructedto continue exercise and AHA diet plan. Continue secondary prevention measures. Apr,ersistent atrial fibrillation (ICD-10 - I48.19)This patient is rate controlled. This patient is anticoagulated to prevent thromboembolic events. Th ey are maintaining regular scheduled appts with their metal casting trades worker. He understands that he must have surgery postponed for 4 wks for the new onset AFib. and postpone for 4-7 wks for COVID infection. Apr,Hypomagnesemia (ICD-10 - E83.42)Replace Magnesium w/ supplements Decrease Alcohol use. Recheck prior to any restortation of sinus rhythm [facility] Other 01-10-2024 NoteXR CHEST 1 VW Procedure: Chest x-ray performed Number of views:AP portable erect History:Palpitations, A. fib Comparison:07/18/2014 Findings: The heart and lungs show no acute findings, and the mediastinum and yue are grossly negative . There is a median sternotomy Impression: No acute change. Finalized by Sandra Barba DO on 04/18/2023 1:14 [facility] 04-18-2023 Miscellaneous Notes* Telephone Encounter - [...] left and told him to call his metal casting trades worker. Pt not dyspneic. Does have some dizzy symptoms. Pt not on any blood thinners. Instructed to go to ER for evaluation [facility] Note* Telephone Encounter - [...] left and told him to call his metal casting trades worker. Pt not dyspneic. Does have some dizzy symptoms. Pt not on any blood thinners. Instructed to go to ER for evaluation [facility] [employer] [id number] Evaluation note* Encounter Date Diagnosis Assessment Notes Treatment Notes Treatment Clinical Notes Apr, COVID-19 (ICD-10 - U07.1) Instructed to use Robitussin or Mucinex for cough, saline or Flonase NS for congestion, Tylenol forpain and fever. Self isolate at home. - [...] in public places for complete 10 days Apr,SHD (arteriosclerotic heart disease) (ICD-10 - I25.10)Increases risk for prolonged, severe disease. Any CP or dyspnea, instructed to go to ER [facility] Other 01-03-2024 Evaluation note* Encounter Date Diagnosis Assessment Notes Treatment Notes Treatment Clinical Notes Apr, Aftercare following joint replac ement surgery (ICD-10 - Z47.1) Apr,resence of right artificial hip joint (ICD-10 - Z96.641) Apr,S/P total left hip arthroplasty (ICD-10 - Z96.642) Apr,[facility] Overall the patient is doing fantastic after his right total hip however were struggling to get hisincision to completely heal. We did discuss how the steroids he has been on preoperatively for thisright hip has likely contributed to his tissues taking longer to heal. At this point time I have noconcerns for infection. I did reach out to [...] will call us to get in sooner. [facility] Other 12-28-2023 Evaluation note* Encounter Date Diagnosis Assessment Notes Treatment Notes Treatment Clinical Notes Mar, Acute blood loss anemia (ICD-10 - D62) Monitor for s/s GIB. Recheck H/H Mar,SHD (arteriosclerotic heart disease) (ICD-10 - I25.10)This patient is stable without activity related CP, dyspnea or palpitations. \ Instructed to go to ER for CP, dyspnea or worsening lightheadedness. Mar,astroesophageal reflux disease with esophagitis without hemorrhage (ICD-10 - K21.00)Avoid lying flat after eating. Avoid eating 2 hours prior to bedtime. Smaller, frequent meals may be better tolerated.Weight loss if overweight.PPI with any heartburn.Monitor for dysphagia. Mar,Orthostatic hypotension (ICD-10 - I95.1)Push fluids, encouraged to drink electrolyte replacement fluid. Avoid strenuous activity, rest. Recheck BP tomorrow. Hold Irbesartan for now. Weaning steroids slowly and acute blood loss anemia are contributing [facility] Other 12-21-2023 Evaluation note* Encounter Date Diagnosis Assessment Notes Treatment Notes Treatment Clinical Notes Mar, Aftercare following joint replac ement surgery (ICD-10 - Z47.1) Mar,resence of right artificial hip joint (ICD-10 - Z96.641) Mar,S/P total left hip arthroplasty (ICD-10 - Z96.642) Mar,[facility] Overall he is doing great from a total hip replacement. His wounds little slow to heal. As a result, the skin was prepped sterilely with ChloraPrep and then a 3-0 nylon horizontal mattress stitch wasplaced in the opening at the proximal third of the incision. Patient tolerated the procedure well. I will plan to see him back in the office in 2 weeks. In the meantime we will start him on 1 week ofdoxycycline 100 mg twice daily. Patient may continue increasing activities as tolerated. Continue taking cnbl-hoa-shpfvne anti-inflammatories as needed for assistance with swelling and pain associated with the operative extremity. [facility] Other 12-07-2023 Evaluation note* Encounter Date Diagnosis Assessment Notes Treatment Notes Treatment Clinical Notes Mar, Presence of right artificial hip joint (ICD-10 - Z96.641) Mar,Status post total replacement of right hip (ICD-10 - Z96.641) Physical examination of the right total hip incision wound was performed today. Incision is healingwell, no signs of infection. Patient will f/u with Dr. Mendez in 2 weeks. Encourage patient to gently massage the area to help break up the scar tissue. Mar,OtherExamination and assessment of this patient was performed by Melinda Verduzco NP and patient will continue with the treatment plan per Dr Mendez, who initiated this treatment plan. Dr. Montesinos is present in the office today and providing supervision. [facility] Other 12-07-2023 Evaluation note* Encounter Date Diagnosis Assessment Notes Treatment Notes Treatment Clinical Notes Mar, Traumatic complete t ear of left rotator cuff, initial encounter (ICD-10 - S46.012A) We discussed conservative management vs surgical intervention. The patient wishes to proceed with surgery in the form of shoulder arthroscopy with cuff repair, bicep tenodesis, with possible superiorcapsular reconstruction. We discussed the risks, benefits, and alternatives to surgery in general, including the potential outcomes with foregoing treatment altogether. The risks include, but are notlimited to, the risk of anesthesia up to and including , infection, bleeding, tendon damage, nerve damage, vascular damage, stiffness, weakness, loss of range of motion, arthrofibrosis, failure to alleviate symptoms, worsening of symptoms, continued pain, continued mechanical symptoms, arthritic pain, post traumatic arthritis, wound healing problems, formation of cutaneous scars secondary tosurgical incisions, deep venous thrombosis, pulmonary embolism, reflex [...] with this procedure, in terms of frequency andduration. We discussed the use of the sling postoperatively, and the fact that driving a motor vehicle is not advisable while in the sling. The importance of proper rehabilitation in the overall outco me of the surgery was emphasized. The amount [...] forgoing treatment altogether, and living with symptoms asthey are. The patient understood and wishes to proceed. Informed consent was obtained, questions were entertained and answered to the best of my ability. [facility] Other 12-04-2023 Evaluation note* Encounter Date Diagnosis Assessment Notes Treatment Notes Treatment Clinical Notes Mar, Primary osteoarthritis of right hip (ICD-10 - M16.11) [facility] Other 11-29-2023 Miscellaneous Notes* Telephone Encounter - [...] to My Chart if tests completed at [facility]: normal labs and no inflammation. Continue [...] normal esr 9, crp<0.3; documented in this encounterWilson Health11-29-2023 Evaluation note* Encounter Date Diagnosis Assessment Notes Treatment Notes Treatment Clinical Notes Feb, Aftercare following joint replac ement surgery (ICD-10 - Z47.1) Feb,resence of right artificial hip joint (ICD-10 - Z96.641) Feb,S/P total left hip arthroplasty (ICD-10 - Z96.642) Feb,[facility] Patient is still progressing well from his [...] follow-up appointments based on that incision check. [facility] Other 11-27-2023 History of Present illness Narrative* [...] no Dactylitis: no H/o precedent/frequent infection(s): no Enthesopathy/Dongola's/heel/plantar tenderness: no Skin thickening, psoriasis, photosensitivity, purpura: no Nail changes: no Alpecia, patchy: no Eye inflammation: glasses SICCA: no Oral/nasal/genital ulcers: no GI problems-diarrhea/bleeding/IBD/Gluten intolerence/Dysphagia: occasionally gerd Raynaud's phenomenon/digital ulcers: no Organ inv-Serositis: no Lung disease/ILD: no Myopathy/proximal muscle weakness: no Abnormal Urine or urethritis: no Renal/liver disease: as above PRINCIPAL PLANNER/PNS/sz/cva/cancer disease: no HEME-Cytopenias/LAD/Clots: no Fevers: no Fatigue: [...] xrays-Marked triscaphe joint space narrowing bilaterally with hwkz-rf-hjau contact andsubchondral sclerosis. Mild narrowing of the [...] shoulder M25.551 Pain in right hip Z79.52 assisted current use of 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 R76.8 CHENCHO [...] touching your toes, sit-ups, using row machine fdc pain recommendations per primary care provider/pain clinic [...] video & audio (virtual) or phone or [id number] patient care, completing clinical documentation, obtaining and/or [...] cc Vitaliy Brower DO documented in this encounterWilson Health11-26-2023 Instructions* Patient Instructions* Heladio Pineda MD - [...] touching your toes, sit-ups, using row machine fdc pain recommendations per primary care provider/pain clinic [...] Ab, Total Negative Negative documented in this encounterWilson Health11-25-2023 Miscellaneous Notes* Telephone Encounter - Heladio Pineda [...] Visit Type Date Time Department [facility] 03/05/2023 2:00 PM [facility] CBC: CBC Latest Ref [...] Lab Orders Expected Expires Ordered [facility] 02/10/23 01/11/24 01/10/23 Auth. provider: Heladio [...] diagnoses: Vitamin B12 deficiency documented in this encounterWilson Health11-22-2023 Evaluation note* Encounter Date Diagnosis Assessment Notes Treatment Notes Treatment Clinical Notes Feb, Aftercare following joint replac ement surgery (ICD-10 - Z47.1) Zipline removed and [...] in the office today and providing supervision. Feb,resence of right artificial hip joint (ICD-10 - Z96.641) Feb,S/P total left hip arthroplasty (ICD-10 - Z96.642) [facility] Other 10-27-2023 Evaluation note* Encounter Date Diagnosis Assessment Notes Treatment Notes Treatment Clinical Notes Jan, Other Prolonged Services 1. H and P date: 01/31/2023 2. Diagnosis: Right hip primary osteoarthritis 3. Counseling: Patient received counseling at their history and physical. 4. Coordination of care: The patient was discussed at today's total joints meeting with anesthesia,OR staff, and implant reps in an effort to coordinate the patient's care during the perioperative period. The anesthesiologist was involved in discussions regarding the patient's pain management suchas regional blocks, anesthesia plans the day of surgery such as general versus spinal, as well as afinal review of lab work to ensure the patient could proceed with surgery safely. The slot shift manager was vital for surgery timing and scheduling purposes. The implant rep was also available for necessarydiscussions regarding preoperative templates that were created on [...] tests including albumin levels, vitamin D levels, hemoglobin,hemoglobin A1c, cotinine serum level, and MRSA nasal [...] plans. Prolonged services time spent: 34 minutes [facility] Other 10-25-2023 Evaluation note* Encounter Date Diagnosis Assessment Notes Treatment Notes Treatment Clinical Notes Jan, Primary osteoarthritis of right hip (ICD-10 - M16.11) Jan,Other1. Right PETER Home Medications - DVT prophylaxis: Aspirin - NSAID: Home prednisone - Disposition: Same-day discharge Joints Meeting Checklist - Pharmacy: [facility] to bed - Approach/Technique: anterior, Unity bed - Implants: Avenir Complete/G7; - Anesthesia: general vs spinal - Blocks: Fascia iliaca - Preop Antibiotics: Ancef and Vanco - TXA: yes-systemic - Positioning/OR Bed: supine on Unity bed - Intraop X-ray: yes - Otoole: no - Tourniquet: no - Antibiotic powder: yes-2 grams of vanc - Antibiotic cement: no - Dressing: Zipline and Prevena 14-day The patient has tried and failed all conservative treatment options to include: activity modification, physical therapy, oral anti-inflammatories, and intra- articular steroid injections. We will moveforward with the definitive treatment option and schedule [...] for 1 month daily. We did discuss comingoff of this as well as staying on it in regards to the risks and benefits. We came to the agreementthat he will continue his 4 mg daily [...] above surgery. OARRS report generated and reviewed. [facility] Other 10-18-2023 Evaluation note* Encounter Date Diagnosis Assessment Notes Treatment Notes Treatment Clinical Notes Jan, Local infection of t he skin and subcutaneous tissue, unspecified (ICD-10 - L08.9) Cleanse w/ soap and water. Apply Mupirocin bid and begin oral antibiotics. Peroxide qd Jan,brasion, right lower leg, initial encounter (ICD-10 - S80.811A)Keep open, clean and dry Jan,olymyalgia rheumatica (ICD-10 - M35.3)Gentle stretching exercises Continue Prednisone w/ plan to start MTX after surgery [facility] Other 10-05-2023 Miscellaneous Notes* Telephone Encounter - [...] fatigue, may start over the counter vitamin [id number] daily by mouth or notify office if [...] hepatitis panel, quantiferon tb; documented in this encounterWilson Health09-29-2023 Instructions* Patient Instructions* Heladio Pineda MD - [...] touching your toes, sit-ups, using row machine emt intermediate pain recommendations per primary care provider/pain [...] your usual activities immediately. documented in this encounterWilson Health09-29-2023 History of Present illness Narrative* Heladio Pineda MD - 01/05/2023 11:31 AM EDT NEW CONSULT:RHEUMATOLOGY SERVICE SERVICE DATE: 01/05/2023 SERVICE TIME: 11:31 AM REASON FOR CONSULT: joint pain 2nd opinion REQUESTING PHYSICIAN: Dr.Benjamin Inocente DO PRIMARY CARE PHYSICIAN: Vitaliy Brower DO Patient's Name: Esme Steven [address] [place], [place] [id number] Accompanied by: self This consult was requested for my medical opinion regarding the rheumatologic evaluation of the patient's joint pain problems, and my final recommendations will be communicated to the requesting health care provider by way of the shared medical record for internal providers or letter via the [facility] [employer] for external providers. 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 Mild narrowing of the [...] shoulder M25.551 Pain in right hip Z79.52 assisted current use of 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 R76.8 HCENCHO positive M79.89 Bilateral hand swelling Mr. Steven [...] touching your toes, sit-ups, using row machine fdc pain recommendations per primary care provider/pain clinic [...] video & audio (virtual) or phone or [id number] patient care, completing clinical documentation, obtaining and/or [...] shared medical records. cc Vitaliy Brower, DO SIGNATURE: Heladio Pineda MD PATIENT NAME: Esme Steven DATE: January 05, 2023 documented in this encounterWilson Health09-26-2023 Evaluation note* Encounter Date Diagnosis Assessment Notes Treatment Notes Treatment Clinical Notes Dec, Preop exam for internal medicine (ICD-10 - Z01.818) Mr. Steven has been seen and examined. I have reviewed his medications and recommend he hold his Spironolactone/HCTZ the day of surgery. Dec,SHD (arteriosclerotic heart disease) (ICD-10 - I25.10)Stable without activity limiting symptoms. Normal stress testing in July 2021. He is capable of performing tasks > 4METs with ease. I will defer the decision to hold Mr. 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 Dec,Elevated cholesterol (ICD-10 - E78.00)Stable, continue medication without interruption. Dec,rimary hypertension (ICD-10 - I10)Stable, continue medication without interruption. Dec,astroesophageal reflux disease with esophagitis without hemorrhage (ICD-10 - K21.00)Stable, continue treatment without interruption Dec,utoimmune thyroiditis (ICD-10 - E06.3)Clinically euthyroid, continue treatment without interruption [facility] Other 09-19-2023 Evaluation note* Encounter Date Diagnosis Assessment Notes Treatment Notes Treatment Clinical Notes Dec, Internal derangement of left peggy ulder (ICD-10 - M24.812) Dec,Traumatic incomplete tear of left rotator cuff, initial encounter (ICD-10 - S46.012A)A 1/1cc marcaine / kenalog cortisone injection was performed into the subacromial space under sterile technique. Patient tolerated the injection well with no adverse reaction. 19 Dec, ontusion of left shoulder, initial encounter (ICD-10 - S40.012A) 19 Dec, 2022Multiple joint pain (ICD-10 - M25.50) [facility] Other 08-17-2023 Evaluation note* Encounter Date Diagnosis Assessment Notes Treatment Notes Treatment Clinical Notes 17 Nov, 2022 Pseudogout (ICD-10 - M11.20) [facility] Other 08-16-2023 Evaluation note* Encounter Date Diagnosis Assessment Notes Treatment Notes Treatment Clinical Notes 16 Nov, 2022 Primary osteoarthritis of right hip (ICD-10 - M16.11) [facility] Other 08-15-2023 Evaluation note* Encounter Date Diagnosis Assessment Notes Treatment Notes Treatment Clinical Notes Nov, Internal derangement of left peggy ulder (ICD-10 - M24.812) A marcaine/kenalog cortisone injection was performed into the region of the intertubercular groove and proximal biceps tendon. Patient tolerated the injection well without adverse reaction. Nov,Traumatic incomplete tear of left rotator cuff, initial encounter (ICD-10 - S46.012A) Nov,ontusion of left shoulder, initial encounter (ICD-10 - S40.012A) Nov,Multiple joint pain (ICD-10 - M25.50)We will refer to Heladio Pineda for rheumatology consult [facility] Other 08-07-2023 Evaluation note* Encounter Date Diagnosis [...] reviewed and amended by provider signed below. Nov,SHD (arteriosclerotic heart disease) (ICD-10 - I25.10)This patient is stable without activity related CP, dyspnea or lightheadedness. They are instructedto continue exercise and AHA diet plan. Nov,Elevated cholesterol (ICD-10 - E78.00)Instructed on diet and exercise with continued statin therapy.Discussed the beneficial effects of lo wering cholesterol in reducing the risk for cerebrovascular and cardiovascular disease. Nov,rimary hypertension (ICD-10 - I10)This patient is instructed to consume a healthy, low-fat, low-salt diet. They are also encouraged to continue exercise to achieve/maintain a normal BMI. Nov,astroesophageal reflux disease with esophagitis without hemorrhage (ICD-10 - K21.00)Diet instructions: Smaller portions, avoid eating and laying flat, avoid eating or drinking prior to bedtime. Weight loss. Nov,utoimmune thyroiditis (ICD-10 - E06.3)Euthyroid, yearly TSH Nov,Other specified hypothyroidism (ICD-10 - E03.8) Nov,Inflammatory polyarthritis (ICD-10 - M06.4)Discussed differential and treatment. Severe osteoarthritis w/ inflammatory involvement: polyarthritis/PMR Nov,Mild episode of recurrent major depressive disorder (ICD-10 - F33.0) Healty diet, exercise and keep active Continue SSRI, improvement w/ mood since initiation Nov,Screening PSA (prostate specific antigen) (ICD-10 - Z12.5)Yearly MELBA and PSA [facility] Other 07-19-2023 Evaluation note* Encounter Date Diagnosis Assessment Notes Treatment Notes Treatment Clinical Notes Oct, Superficial ulcer of lower extre mity (ICD-10 - L97.909) Cleanse w/ soap and water. Elevate as much as possible. No improvement, refer to wound clinic Oct,ellulitis of left lower extremity (ICD-10 - L03.116)Keep clean, elevate and use Mupirocin bid. Begin antibiotics. [facility] Other 06-27-2023 Evaluation note* Encounter Date Diagnosis Assessment Notes Treatment Notes Treatment Clinical Notes Sep, Morbid (severe) obesity due to e xcess calories (ICD-10 - E66.01) This patient has [...] He is a good candidate for GLP-1 Sep,SHD (arteriosclerotic heart disease) (ICD-10 - I25.10)This patient is stable without activity related CP, dyspnea or lightheadedness. They are instructedto continue exercise and AHA diet plan. Sep,ody mass index [BMI] 36.0-36.9, adult (ICD-10 - Z68.36) Sep,MR (polymyalgia rheumatica) (ICD-10 - M35.3)Discussed dx: - elevated inflammatory markers helps but not necessary for dx. - clinically has symptoms suggested of PMR - Rheum has prescribed Prednisone, w/ tapering dose, over the next month Sep,Erectile dysfunction due to arterial insufficiency (ICD-10 - N52.01) He denies CP, palpitations or lightheadedness He completed evaluation w/ Manufacturing Design Engineer w/o changes Instructed to avoid use of Nitroglycerine w/ Sildenafil. Instructed to avoid use if develop CP, palpitations or lightheadedness [facility] Other 06-21-2023 Evaluation note* Encounter Date Diagnosis Assessment Notes Treatment Notes Treatment Clinical Notes Sep, FER (obstructive sleep apnea) (ICD-10 - G 47.33) AHI 25, Psat 80% [facility] Other 06-21-2023 Evaluation note* Encounter Date Diagnosis Assessment Notes Treatment Notes Treatment Clinical Notes Sep, FER (obstructive sleep apnea) (ICD-10 - G 47.33) AHI 35 [facility] Other 05-03-2023 Evaluation note* Encounter Date Diagnosis Assessment Notes Treatment Notes Treatment Clinical Notes August, ASHD (arteriosclerotic heart dis ease) (ICD-10 - I25.10) This patient is stable without activity related CP, dyspnea or lightheadedness. They are instructedto continue exercise and AHA diet plan. August,utoimmune thyroiditis (ICD-10 - E06.3)Euthyroid, continue TSH yearly August,MR (polymyalgia rheumatica) (ICD-10 - M35.3)Suspected on clinical symptoms, examination and response to steroids. Normal ESR, CRP, CK Normal CBC, CMP NOrmal B12, TSH Refer to Rheumatology for evaluation August,Mild episode of recurrent major depressive disorder (ICD-10 - F33.0) [facility] Other 05-01-2023 Evaluation note* Encounter Date Diagnosis Assessment Notes Treatment Notes Treatment Clinical Notes August, Osteoarthritis of right hip (ICD -10 - M16.11) Patient denies any complaints of hip pain at this time. He attributes this to recent intra-articular and trochnateric bursa injections. We will continue to monitor and proceed with future treatment to the area as needed. Overall, patient believes their pain is reasonably well controlled in this area and he is in agreement with our treatment plan. August,Osteoarthritis of right shoulder (ICD-10 - M19.011)Patients primary complaint today is right shoulder pain. Recent imaging results show evidence of mild degenerative changes. Based on location of pain and exam findings, patient is a candidate for a right intra-articular shoulder joint injection which we will proceed with today in the office. Risks and benefits of procedure explained to patient; patient verbalizes understanding. Patient tolerated well. August,Other spondylosis with myelopathy, cervical region (ICD-10 - M47.12) Patient is voicing minimal complaints of cervical pain at this time. He attributes this to a recentcervical epidural steroid injection. We will continue to monitor his symptoms in this region. In the future if the pain persists, particularly muscular pain in this region, we can consider trigger point injections. Anatomy of spine discussed in detail with patient in regards to patients condition. Overall, patient believes their pain is reasonably well controlled and he is in agreement with our treatment plan. August,Other chronic pain (ICD-10 - G89.29) August,OtherAbove note written by Kevyn Corona MA, [employer]. Edited and approved by Dr. Jonathan Samano MD. [facility] Other 04-25-2023 Evaluation note* Encounter Date Diagnosis Assessment Notes Treatment Notes Treatment Clinical Notes Jul, Myalgia (ICD-10 - M79.10) [facility] Other 04-24-2023 Evaluation note* Encounter Date Diagnosis Assessment Notes Treatment Notes Treatment Clinical Notes Jul, Right shoulder pain (ICD-10 - M2 5.511) [facility] Other 04-21-2023 Evaluation note* Encounter Date Diagnosis Assessment Notes Treatment Notes Treatment Clinical Notes Jul, ASHD (arteriosclerotic heart dis ease) (ICD-10 - I25.10) This patient is stable without activity related CP, dyspnea or lightheadedness. They are instructedto continue exercise and AHA diet plan. Jul,Elevated cholesterol (ICD-10 - E78.00)Diet and exercise with continued statin therapy. Jul,rimary hypertension (ICD-10 - I10)This patient is instructed to consume a healthy, low-fat, low-salt diet. They are also encouraged to continue exercise to achieve/maintain a normal BMI. Jul,astroesophageal reflux disease with esophagitis without hemorrhage (ICD-10 - K21.00)Diet instructions: Smaller portions, avoid eating and laying flat, avoid eating or drinking prior to bedtime. Weight loss. Jul,Other specified hypothyroidism (ICD-10 - E03.8) Jul,utoimmune thyroiditis (ICD-10 - E06.3)DUe to check TSH Symptoms of fatigue suspicious for low thyroid. Jul,Myalgia (ICD-10 - M79.10)Discussed PMR, ADR to statins and generalized arthritis. Will send for screening labs. May require referral to Rheumatology Jul,Fatigue, unspecified type (ICD-10 - R53.83) Jul,High risk medication use (ICD-10 - Z79.899) Jul,Screening PSA (prostate specific antigen) (ICD-10 - Z12.5)Didn't complete at wellness. Stressed importance of yearly testing Sent order to complete [facility] Other 03-28-2023 Evaluation note* Encounter Date Diagnosis Assessment Notes Treatment Notes Treatment Clinical Notes Jun, Internal derangement of left peggy ulder (ICD-10 - M24.812) Jun,Traumatic incomplete tear of left rotator cuff, initial encounter (ICD-10 - S46.012A) MRI results were reviewed with the patient today, a rotator cuff tear was noted on the MRI readings. We discussed the need for surgery to repair the cuff tear, the patient is looking to possibly havesurgery sometime in February. We can provide the patient with cortisone injections in the meantime to provide relief. We also did stress the importance to continue to exercise the shoulder, along with some safety while carrying heavy objects. Patient can call anytime after August 2022 for a repeat injection, or to discuss surgery. Jun,ontusion of left shoulder, initial encounter (ICD-10 - S40.012A) [facility] Other 02-27-2023 Evaluation note* Encounter Date Diagnosis Assessment Notes Treatment Notes Treatment Clinical Notes May, Left shoulder pain (ICD-10 - M25 .512) We discussed treatment options for the patient's left shoulder pain. Given his increasing pain symptoms as well recent fall, I would like him to be formally evaluated by Orthopedics. May,Other chronic pain (ICD-10 - G89.29) May,Other spondylosis with myelopathy, cervical region (ICD-10 - M47.12) Patient is voicing minimal complaints of cervical pain at this time. He attributes this to a recentcervical epidural steroid injection. We will continue to monitor his symptoms in this region. In the future if the pain persists, particularly muscular pain in this region, we can consider trigger point injections. Anatomy of spine discussed in detail with patient in regards to patients condition. Overall, patient believes their pain is reasonably well controlled and he is in agreement with our treatment plan. May,Right hip pain (ICD-10 - M25.551)Patient is voicing minimal complaints of pain at this time. He attributes this to a recent left troc hanteric bursa and hip joint steroid injection. We will continue to monitor his symptoms in this region. Anatomy of spine discussed in detail with patient in regards to patients condition. Overall, patient believes their pain is reasonably well controlled and he is in agreement with our treatment plan. May,OtherAbove note written by Jeff Nieto LPN, [employer]. Edited and approved by Dr. Jonathan Samano MD. [facility] Other 02-27-2023 Evaluation note* Encounter Date Diagnosis Assessment Notes Treatment Notes Treatment Clinical Notes May, Internal derangement of left peggy ulder (ICD-10 - M24.812) May,ontusion of left shoulder, initial encounter (ICD-10 - S40.012A)We will treat this as a shoulder contusion [...] the injection well with no adverse reaction. [facility] Other 02-20-2023 Evaluation note* Encounter Date Diagnosis Assessment Notes Treatment Notes Treatment Clinical Notes May, Acute bronchitis due to other sp ecified organisms (ICD-10 - J20.8) Instructed to use Robitussin or Mucinex for cough, saline or Flonase NS for congestion, Tylenol forpain and fever. May,SHD (arteriosclerotic heart disease) (ICD-10 - I25.10)This patient is stable without activity related CP, dyspnea or lightheadedness. They are instructedto continue exercise and AHA diet plan. [facility] Other 02-14-2023 Evaluation note* Encounter Date Diagnosis Assessment Notes Treatment Notes Treatment Clinical Notes May, Tongue ulceration (ICD-10 - K14. 0) Magic Mouth Wash qid. Refer to ENT May,Hoarseness of voice (ICD-10 - R49.0)Refer to ENT May,Odynophagia (ICD-10 - R13.10)Refer to ENT [facility] Other 01-04-2023 Evaluation note* Encounter Date Diagnosis Assessment Notes Treatment Notes Treatment Clinical Notes Apr, Other chronic pain (ICD-10 - G89 .29) Apr,Other spondylosis with myelopathy, cervical region (ICD-10 - [...] with patient in regard to patients condition. Apr,ervical pain (ICD-10 - M54.2) Apr,Right hip pain (ICD-10 - M25.551)We discussed treatment options for the patient's persistent left hip/gluteal pain. Patient shows notable tenderness upon exam over the left trochanteric bursa. Given location of pain and exam findings, patient is a candidate for left intraarticular hip joint and trochanteric bursa injection, which we will proceed with. Risks and benefits of procedure explained to patient; patient verbalizes understanding. Apr,OtherAbove note written by Jeff Nieto LPN, [employer]. Edited and approved by Dr. Jonathan Samano MD. [facility] [employer] Other 11-30-2022 Evaluation note* Encounter Date Diagnosis Assessment Notes Treatment Notes Treatment Clinical Notes Feb, Other chronic pain (ICD-10 - G89 .29) Feb,ervical spondylosis without myelopathy (ICD-10 - M47.812)We discussed treatment options for the patient's persistent neck pain. He shows notable pain consistent with degenerative changes of the cervical spine. We discussed the possible benefit of treatmentof the facet region for cervical neck pain. Patient is a reasonable candidate for repeat diagnosticbilateral cervical facet medial branch nerve blocks which we will proceed with. Risks and benefits of procedure explained to patient; patient verbalizes understanding. It was further explained shouldthis provide significant short term relief we will proceed with a subsequent radiofrequency ablation. Anatomy of spine discussed in detail with patient in regard to patients condition. Feb,ervical pain (ICD-10 - M54.2) Feb,therAbove note written by Jeff Nieto LPN, [employer]. Edited and approved by Dr. Jonathan Samano MD. 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 The patient is suffering from degenerative arthritis. We discussed the conservative treatment options which can be beneficial in relieving pain, including hand occupational therapy, wearing a brace, and non-steroidal anti-inflammatory medication and surgery. Wediscussed the use of occasional cortisone injections that can provide pain relief. We performed a cortisone injection into the joint under sterile technique. The patient tolerated this well without complication. We discussed that the finger may feel numb and tingle for hours after this injection. [facility] Other 11-07-2022 Evaluation note* Encounter Date Diagnosis Assessment Notes Treatment Notes Treatment Clinical Notes Feb, Other chronic pain (ICD-10 - G89 .29) Feb,ervical spondylosis without myelopathy (ICD-10 - M47.812)We discussed treatment options for the patient's persistent neck pain. He shows notable pain consistent with degenerative changes of the cervical spine. We discussed the possible benefit of treatmentof the facet region for cervical neck pain. [...] with patient in regard to patients condition. Feb,ervical pain (ICD-10 - M54.2) Feb,therAbove note written by Jeff Nieto LPN, [employer]. Edited and approved by Dr. Jonathan Samano MD. [facility] Other 06-22-2022 Evaluation note* Encounter Date Diagnosis Assessment Notes Treatment Notes Treatment Clinical Notes Sep, Primary osteoarthritis of right hip (ICD-10 - M16.11) Sep,rimary osteoarthritis of left hip (ICD-10 - M16.12) Sep, /P total left hip arthroplasty (ICD-10 - Z96.642) [facility] Doing well. Again discussed getting permanent inserts placed or considering trial of no inserts andphysical therapy to really work on pelvic girdle muscles so he is use to his leg lengths but at this point he is happy with just putting an insert into his shoe. Discussed post-op dental prophylaxis. Shared decision made to continue prophylactic antibiotics indefinitely. Follow-up at 1 year post-op for repeat examination and repeat x-rays. Patient instructed to call with any questions or concerns. [facility] Other 06-06-2022 Evaluation note* Encounter Date Diagnosis Assessment Notes Treatment Notes Treatment Clinical Notes Sep, Right hand pain (ICD-10 - M79.64 1) Sep,rthritis of right hand (ICD-10 - M19.041)Right long finger MCP joint injected with cortisone under sterile technique, patient tolerated well. Will discuss surgical options with Dr Nichole [facility] Other 05-11-2022 Evaluation note* Encounter Date Diagnosis Assessment Notes Treatment Notes Treatment Clinical Notes August, Primary osteoarthritis of right hip (ICD-10 - M16.11) August,rimary osteoarthritis of left hip (ICD-10 - M16.12) August,/P total left hip arthroplasty (ICD-10 - Z96.642) [facility] Doing well Patient may continue increasing activities as tolerated. Continue taking ichy-qkw-giiugml anti-inflammatories as needed for assistance with swelling and pain associated with the operative extremity. Follow-up in 6 weeks for repeat examination and repeat x-rays. [facility] Other 04-13-2022 Evaluation note* Encounter Date Diagnosis Assessment Notes Treatment Notes Treatment Clinical Notes Jul, Primary osteoarthritis of right hip (ICD-10 - M16.11) Jul,rimary osteoarthritis of left hip (ICD-10 - M16.12) [facility] Doing well. Steri-Strips applied. Discussed [...] off narcotic pain medication. They can take kjvm-zji-ouwifjqgvco-inflammatories as needed for assistance with swelling and pain associated with the operative extremity. Patient to continue their aspirin DVT prophylaxis as previously instructed. This includes wearing their MOOSE hose on the operative extremity for another two weeks. Follow-up in 4 weeks for repeat examination and x-rays of the left hip. Please note that the patient should take his inserts out of the nonoperative shoe for his standing weightbearing pelvis x-ray. [facility] Other 03-18-2022 Evaluation note* Encounter Date Diagnosis Assessment Notes Treatment Notes Treatment Clinical Notes Jun, Other Prolonged Services 1. H and P date: 06/17/2021 2. Diagnosis: Left hip primary osteoarthritis 3. Counseling: Patient provided education at his history and physical. 4. Coordination of care: The patient was discussed at today's total joints meeting with anesthesia,OR staff, and implant reps in an effort to coordinate the patient's care during the perioperative period. The anesthesiologist was involved in discussions regarding the patient's pain management suchas regional blocks, anesthesia plans the day of surgery such as general versus spinal, as well as afinal review of lab work to ensure the patient could proceed with surgery safely. The slot shift manager was vital for surgery timing and scheduling purposes. The implant rep was also available for necessarydiscussions regarding preoperative templates that were created on preoperative x-rays to ensure the appropriate implants and sizes of implants would be available the day of surgery. The patient's discharge plan was also discussed and the final decision was confirmed. 5. Medication Changes: None 6. Lab Tests: The patient's screening tests including albumin levels, vitamin D levels, hemoglobin,hemoglobin A1c, cotinine serum level, and MRSA nasal [...] echo and a heart cath by his metal casting trades worker. Hewas then cleared from a cardiology standpoint. Any recommendations made by these care providers were taken into consideration for the patient's perioperative and postoperative treatment plans. Prolonged services time spent: 33 minutes [facility] Other 03-11-2022 Evaluation note* Encounter Date Diagnosis Assessment Notes Treatment Notes Treatment Clinical Notes Jun, Primary osteoarthritis of right hip (ICD-10 - M16.11) Jun,rimary osteoarthritis of left hip (ICD-10 - M16.12) Jun,2Other 1. Left PETER Home Medications - DVT prophylaxis: ASA - NSAID: Celebrex - Disposition: Same-day discharge-lives at home with his and she will be around for the postoperative period Joints Meeting Checklist - Pharmacy: [facility] med to bed - Approach/Technique: anterior, Unity bed - Implants: Avenir Complete/G7; - Anesthesia: general - Blocks: Fascia iliaca - Preop Antibiotics: Ancef - TXA: yes-systemic - Positioning/OR Bed: supine on Unity bed - Intraop X-ray: yes - Otoole: no - Tourniquet: no - Antibiotic powder: yes-2 grams of vanc - Antibiotic cement: no - Dressing: Zipline and Prevena 14-day The patient has tried and failed all conservative treatment options to include: activity modification, physical therapy, oral anti-inflammatories, and intra- articular steroid injections. We will moveforward with the definitive treatment option and schedule [...] elected to proceed with the above surgery. [facility] Other 11-16-2021 Evaluation note* Encounter Date Diagnosis Assessment Notes Treatment Notes Treatment Clinical Notes Feb, Other spondylosis wi th radiculopathy, lumbar region (ICD-10 - M47.26) Patient's main complaint is his pain radiating into the posterior aspect of his lower extremities. Patient has failed several conservative treatment options. Based on MRI findings and exam findings, patient is a candidate for a lumbar epidural steroid injection which we will proceed with. Risks andbenefits of procedure explained to patient; patient verbalizes understanding. Based on patient's surgical history, we will proceed with this at the L1/L2 level. Anatomy of spine discussed in detail with patient in regards to patients condition. Feb,eft hip pain (ICD-10 - M25.552) Currently tolerable. We will continue to monitor this. Feb,umbar degenerative disc disease (ICD-10 - M51.36) Feb,ight hip pain (ICD-10 - M25.551) Currently tolerable. We will continue to monitor this. Feb,Other chronic pain (ICD-10 - G89.29) Feb,OtherAbove note written by Erica Valenzuela CMA, [employer]. Edited and approved by Dr. Jonatahn Samano MD. [facility] Other 09-29-2021 Evaluation note* Encounter Date Diagnosis Assessment Notes Treatment Notes Treatment Clinical Notes Dec, Other spondylosis wi th radiculopathy, lumbar region (ICD-10 - M47.26) We may consider treatment of the lumbar spine should he not benefit from the upcoming hip injection. Anatomy of spine discussed in detail with patient in regards to patients condition. Dec,eft hip pain (ICD-10 - M25.552) Patient notes minimal complaints of left hip/groin pain at this time. He attributes this to the recent left intraarticular hip and trochanteric bursa injections we performed. Patient is pleased with these results and notes improvement in daily activities. We will plan on proceeding with repeat proce dures on an as needed basis. Anatomy of spine discussed in detail with patient in regards to patients condition. Overall, patient believes their pain is reasonably well controlled and he is in agreement with our treatment plan. Dec,umbar degenerative disc disease (ICD-10 - M51.36) Dec,ight hip pain (ICD-10 - M25.551) Dec,Other chronic pain (ICD-10 - G89.29) Dec,OtherAbove note written by Erica Valenzuela CMA, [employer]. Edited and approved by Dr. Jonathan Samano MD. 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 Encounter for long-term (current) use of steroids CHENCHO positive Other and unspecified nonspecific immunological findings Bilateral hand swelling [facility] PM[facility] (polymyalgia rheumatica) ([facility])- Primary Polymyalgia rheumatica Elevated sed rate Elevated sedimentation rate Elevated C-reactive protein (CRP) Vitamin D deficiency Unspecified vitamin D deficiency Vitamin B12 deficiency Other B-complex deficiencies [facility] Diagnosis PMR (polymyalgia rheumatica) ([facility])- Primary Polymyalgia rheumatica Elevated sed rate Elevated [...] in joint, pelvic region and 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 Encounter for long-term (current) use of steroids CHENCHO positive Other and unspecified nonspecific immunological findings Chronic pain of both knees Bilateral hand pain Pain in limb [facility] PMR (polymyalgia rheumatica) ([facility])- Primary Polymyalgia rheumatica Elevated sed rate Elevated sedimentation rate Elevated C-reactive protein (CRP) [facility]* Diagnosis Steroid-induced osteoporosis Other osteoporosis [facility]* Diagnosis Onset Date Resolution Status Aftercare following hip joint replacemen t surgery acuteHistory of total replacement of right hipacuteAftercare following hip joint replacement surgeryacuteHistory of total replacement of right hipacuteASHD (arteriosclerotic heart disease)acuteGAD (generalized anxiety disorder)acute HyperlipidemiaacuteHypertensionacuteHypothyroidismacute [facility] Work Phone: Evaluation note* Diagnosis PMR (polymyalgia rheumatica) (HCC)- Primary Polymyalgia rheumatica Elevated sed rate Elevated sedimentation rate Elevated C-reactive protein (CRP) Vitamin D deficiency Unspecified vitamin D deficiency [facility] Diagnosis Persistent atrial fibrillation (Multi)- Primary Atrial fibrillation Multi-vessel coronary artery stenosis Cardiomyopathy, ischemic Other specified forms of chronic ischemic heart disease Mixed hyperlipidemia 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 (Multi) Atrial fibrillation Status post aorto-coronary artery bypass graft assisted current use of anticoagulant therapy BMI 35.0-35.9,adult documented in this encounter [facility] Work Phone: Evaluation note* Diagnosis Onset Date Resolution Status Aftercare following hip joint replacemen t surgery acuteHistory of total replacement of right hipacuteAftercare following hip joint replacement surgeryacuteHistory of total replacement of right hipacuteASHD (arteriosclerotic heart disease)acuteAtrial fibrillationacuteGAD (generalized anxiety disorder)acuteHypertensionacute [facility] Work Phone: Evaluation note* Diagnosis 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 (Multi) Atrial fibrillation documented in this encounter [facility] Work Phone: Evaluation note* Diagnosis Onset Date Resolution Status Aftercare following hip joint replacemen t surgery acuteHistory of total replacement of right hipacuteAftercare following hip joint replacement surgeryacuteHistory of total replacement of right hipacuteASHD (arteriosclerotic heart disease)acuteAtrial fibrillationacuteGAD (generalized anxiety disorder)acuteHypertensionacuteDiverticulitisacuteElevated lactic acid levelacuteMigraineacuteSIRS (systemic inflammatory response syndrome)acute [facility] Work Phone: Evaluation note* Diagnosis Onset Date Resolution Status Aftercare following hip joint replacemen t surgery acuteHistory of total replacement of right hipacuteAftercare following hip joint replacement surgeryacuteHistory of total replacement of right hipacuteASHD (arteriosclerotic heart disease)acuteAtrial fibrillationacuteGAD (generalized anxiety disorder)acuteHypertensionacuteAcute diverticulitisacuteDiverticulitis acuteElevated lactic acid levelacuteMigraineacuteSepsisacuteSIRS (systemic inflammatory response syndrome)[facility] Work Phone: Evaluation note* Diagnosis PMR (polymyalgia rheumatica) (HCC)- Primary Polymyalgia rheumatica Elevated sed rate Elevated sedimentation rate Elevated C-reactive protein (CRP) [facility] Diagnosis Onset Date Resolution Status Aftercare following hip joint replacemen t surgery acuteHistory of total replacement of right hipacuteASHD (arteriosclerotic heart disease)acuteGAD (generalized anxiety disorder)acuteAcute diverticulitisacute Acute diverticulitisacuteASHD (arteriosclerotic heart disease)acuteInflammatory polyarthritisacutePersistent atrial fibrillationacutePrimary hypertensionacute [facility] Work Phone: Evaluation note* Diagnosis 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 (tophi) Hyperuricemia Other abnormal blood chemistry documented in this [facility]* Diagnosis Onset Date Resolution Status Acute diverticulitis acuteElevated lactic acid levelresolvedAcute diverticulitisacuteASHD (arteriosclerotic heart disease)acuteInflammatory polyarthritisacutePersistent atrial fibrillationacutePrimary hypertensionacuteBiceps tendonitis on rightacute Rotator cuff syndrome of right shoulderacuteTraumatic complete tear of left rotator cuffacute [facility] Work Phone: Evaluation note* Diagnosis Onset Date Resolution Status Elevated lactic acid level resolvedASHD (arteriosclerotic heart disease)acuteInflammatory polyarthritis acutePrimary hypertensionacuteBiceps tendonitis on rightacuteRotator cuff syndrome of right shoulderacuteTraumatic complete tear of left rotator cuffacute ASHD (arteriosclerotic heart disease)acuteAtrial fibrillationacuteGAD (generalized anxiety disorder)acuteGastroesophageal reflux disease with esophagitis without hemorrhageacuteHypercholesterolemiaacuteOSA (obstructive sleep apnea)acutePrimary hypertensionacuteScreening PSA (prostate specific antigen)noneactiveH/O diverticulitis of colonnoneactiveWellness examination noneactive [facility] Work Phone: Evaluation note* Diagnosis Elevated sed rate Elevated sedimentation rate Elevated C-reactive protein (CRP) PMR (polymyalgia rheumatica) ([facility]) Polymyalgia rheumatica [facility]* Diagnosis Onset Date Resolution Status Biceps tendonitis on right acuteRotator cuff syndrome of right shoulderacuteTraumatic complete tear of left rotator cuffacuteAcute right flank painacuteASHD (arteriosclerotic heart disease)acuteAtrial fibrillationacuteGAD (generalized anxiety disorder)acute Gastroesophageal reflux disease with esophagitis without hemorrhageacute HypercholesterolemiaacuteHypothyroidacuteOSA (obstructive sleep apnea)acute Primary hypertensionacuteScreening PSA (prostate specific antigen)noneactiveH/O diverticulitis of [facility] Work [facility]: Evaluation note* Diagnosis Onset Date Resolution Status Acute right flank pain acuteASHD (arteriosclerotic heart disease)acuteAtrial fibrillationacuteGAD (generalized anxiety disorder)acuteGastroesophageal reflux disease with esophagitis without hemorrhageacuteHypercholesterolemiaacuteHypothyroidacuteOSA (obstructive sleep apnea)acutePrimary hypertensionacuteScreening PSA (prostate specific antigen)noneactiveH/O diverticulitis of [facility] Work Phone: Evaluation note* Diagnosis Atrial fibrillation, unspecified type (Multi) Preoperative examination Unspecified pre-operative examination Presence of Watchman left atrial appendage closure device Atrial fibrillation, unspecified type (Multi) Presence of Watchman left atrial appendage closure device documented in this encounter [facility] Work Phone: Evaluation note* Diagnosis Onset Date Resolution Status Acute right flank pain acuteASHD (arteriosclerotic heart disease)acuteAtrial fibrillationacuteGAD (generalized anxiety disorder)acuteGastroesophageal reflux disease with esophagitis without hemorrhageacuteHypercholesterolemiaacuteHypothyroidacuteOSA (obstructive sleep apnea)acutePrimary hypertensionacuteScreening PSA (prostate specific antigen)noneactiveH/O diverticulitis [facility] examinationnoneactivePrimary osteoarthritis, right handacute [facility] Work Phone: Evaluation note* Diagnosis Persistent atrial fibrillation (Multi)- Primary Atrial fibrillation Status post aorto-coronary artery bypass graft Presence of Watchman left atrial appendage closure device Multi-vessel coronary artery stenosis Mixed hyperlipidemia Cardiomyopathy, ischemic Other specified forms of chronic ischemic heart disease Dilated aortic root (CMS-HCC) Thoracic aneurysm without mention of rupture Never smoked cigarettes BMI 35.0-35.9,adult documented in this encounter [facility] Work Phone: Evaluation note* Diagnosis Persistent atrial fibrillation (Multi)- Primary Atrial fibrillation Status post aorto-coronary artery bypass graft Mixed hyperlipidemia Cardiomyopathy, ischemic Other specified forms of chronic ischemic heart disease Multi-vessel coronary artery stenosis BMI 35.0-35.9,adult Never smoked cigarettes documented in this encounter [facility] Work Phone: Evaluation note* Diagnosis 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 (Multi)- Primary Atrial fibrillation Persistent atrial fibrillation (Multi) Atrial fibrillation documented in this encounter [facility] Work Phone: Evaluation note* Diagnosis Persistent atrial fibrillation (CMS-HCC)- Primary Atrial fibrillation Coronary artery disease involving [place] coronary artery of [place] heart without angina pectoris [facility] Diagnosis Hypomagnesemia- Primary Disorders of magnesium metabolism [facility] Diagnosis Atrial fibrillation, unspecified type (Multi) documented in this encounter [facility] Work Phone: Evaluation note* Diagnosis PMR (polymyalgia [...] multiple joints Other disorder of calcium metabolism assisted current use of 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 Encounter for [...] of high-risk medication [facility] Diagnosis 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 (tophi) Vitamin D deficiency Unspecified vitamin D deficiency Elevated LFTs Other abnormal blood chemistry Anemia of chronic disease Anemia of other chronic disease Hyperuricemia Other abnormal blood chemistry [facility] Diagnosis Persistent atrial fibrillation (Multi)- Primary Atrial fibrillation Multi-vessel coronary artery stenosis Status post aorto-coronary artery bypass graft Mixed hyperlipidemia Dilated aortic root Thoracic aneurysm without mention of rupture Cardiomyopathy, ischemic Other specified forms of chronic ischemic heart disease Presence of Watchman left atrial appendage closure device BMI 32.0-32.9,adult Never smoked cigarettes documented in this encounter [facility] Work Phone: Evaluation note* Diagnosis Idiopathic chronic [...] hip pain, bilateral [facility] Diagnosis Pseudogout involving multiple joints- Primary [...] bilateral Rotator cuff arthropathy of left shoulder 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 Encounter for long-term (current) use of steroids Bilateral hand swelling Chronic pain of both knees Leg weakness, bilateral Other musculoskeletal symptoms referable to limbs Chronic bilateral low back pain without sciatica Bilateral knee swelling Effusion of lower leg joint [facility] Diagnosis Persistent atrial fibrillation (Multi)- Primary Atrial fibrillation Multi-vessel coronary artery stenosis Status post aorto-coronary artery bypass graft Presence of Watchman left atrial appendage closure device Mixed hyperlipidemia Dilated aortic root Thoracic aneurysm without mention of rupture Cardiomyopathy, ischemic Other specified forms of chronic ischemic heart disease Never smoked cigarettes BMI 32.0-32.9,adult documented in this encounter [facility] Work Phone: Evaluation note* Diagnosis Status post aorto-coronary artery bypass graft- Primary Multi-vessel coronary artery stenosis Presence of Watchman left atrial appendage closure device Persistent atrial fibrillation (Multi) Atrial fibrillation Mixed hyperlipidemia Dilated aortic root Thoracic aneurysm without mention of rupture Cardiomyopathy, ischemic Other specified forms of chronic ischemic heart disease Never smoked cigarettes Obesity (BMI 30-39.9) documented in this encounter [facility] Work Phone: Evaluation note* Diagnosis Right leg weakness- Primary Muscle weakness (generalized) documented in this encounter [facility] Work Phone: History and physical note Author Elliott Talley [facility] August 30, 2023 11:34pmNote Date/TimeMay 2023 11:04pm[place]eb[place] [address] Hospitalist H&P Signed Patient: Esme Steven MR#: [id number] : 1960 Acct:[id number] Age/Sex: 62 / M Adm Date: 4 Loc: Room: [address] [place] [address] Type: ADM IN Attending Dr: Elliott Talley [...] were obtained and patient was given IV fl uids with Compazine and Benadryl. CT of the head without contrast, CTA of thehead and neck and CT of the abdomen pelvis were performed. There is some mild carotid artery plaque noted, but otherwise head imaging was unremarkable for acute findings. CT of the abdomen pelvis noted acute sigmoid diverticulitis findings. He was given IV Unasyn for sepsis coverage. Case was discussed between myself andED attending and patient was recommended for admission for further inpatient management. Review of Systems Review of Systems Review of systems: 10 point ROS reviewed and is negative except for that which is noted above in HPI [facility] Medical History (Updated 08/30/23 @ 23:33 by [...] mg tablet,delayed release 81 mg PO DAILY PA prevention 01/29/17 [History Confirmed 08/30/23] atorvastatin 80 [...] % (Auto) 4.4 % (.) 08/30/23 18:20 Noble % (Auto) 2.3 % (.) 08/30/23 18:20 Eos % (Auto) 0.1 % (.) 08/30/23 18:20 Baso % (Auto) 0.8 % (.) 08/30/23 18:20 Nucleat RBC Rel Count 0.0 /100 WBC (0-0.5) 08/30/23 18:20 Neut # (Auto) 13.4 x10E3/uL (1.8-7.7) H 08/30/23 18:20 Lymph # (Auto) 0.6 x10E3/uL (1.00-4.8) L 08/30/23 18:20 Noble # (Auto) 0.3 x10E3/uL (0.0-0.8) 08/30/23 18:20 [...] pH 5.5 (5.0-9.0) 08/30/23 18:45 Ur Specific [place] 1.016 (1.001-1.030) 08/30/23 18:45 Urine Protein Negative [...] his osteoarthritis for long period of time. Hassome cushingoid features -Check cortisol level -Continue Medrol [...] setting as: INPATIENT because of an expectation ofan over 2 midnight stay. Estimated length of stay (# of days): 3 Quality Measures SEPSIS Tissue perfusion reassessment (select if applicable): Tissue perfusion reassessed after bolus given FOCUSED EXAM Capillary refill: Capillary refill < 3 seconds Peripheral pulses: Pulses present bilaterally Skin color/condition: Warm and pink Documented By: Elliott Talley MD 4 [id number] Signed By: <Electronically signed by Elliott Talley MD> 08/30/23 3933 [facility] Work Phone: History and physical note Author Mehrdad Mcmanus [facility] December 31, 2023 12:47pmNote Date/TimeSept2023 12:47pmStephanie Ville [id number] Gastroenterology H&P Signed Patient: Esme Steven MR#: [id number] : 1960 Acct:[id number] Age/Sex: 63 / M Adm Date: 4 Loc: Room: Type: [facility] Attending Dr: Mehrdad Mcmanus MD Copies to: Vitaliy Brower,DO Mehrdad Mcmanus MD~ Date of Service: 12/31/2023 HISTORY & PHYSICAL: Patient's history with special attention to the cardiovascular, pulmonary systems and the current problem was reviewed with the patient immediately prior to the procedure. Present medications and doses reviewed in the EMR. Allergies and pertinent laboratory tests were also re viewedat this time in the EMR. The physical [...] M.D. Documented By: Mehrdad Mcmanus MD 12/31/23 124 Signed By: <Electronically signed by Mehrdad Mcmanus MD> 12/31/23 1247 [facility] Work Phone: History and physical note Author Ada Valentin [facility]Note Date/TimeJune 2024 1:17pmStephanie Ville [id number] Hospitalist H&P Signed Patient: Esme Steven MR#: [id number] : 1960 Acct:[id number] Age/Sex: 63 / M Adm Date: 5 Loc: Room: [address] [place] [address] Type: ADM INOo Attending Dr: Leidy Nuno [...] obtained, negative unless noted in the HPI [facility] Source: Old Records Reviewed Medical History Vitamin [...] % (Auto) 11.5 % (.) 09/30/24 14:21 Noble % (Auto) 3.9 % (.) 09/30/24 14:21 Eos % (Auto) 0.2 % (.) 09/30/24 14:21 Baso % (Auto) 0.6 % (.) 09/30/24 14:21 Nucleat RBC Rel Count 0.1 /100 WBC (0-0.5) 09/30/24 14:21 Neut # (Auto) 14.2 x10E3/uL (1.8-7.7) H 09/30/24 14:21 Lymph # (Auto) 1.9 x10E3/uL (1.00-4.8) 09/30/24 14:21 Noble # (Auto) 0.7 x10E3/uL (0.0-0.8) 09/30/24 14:21 [...] signed by Leidy Nuno DO> 10/01/24 1317 [facility] Work Phone: History general Narrative - Reported* Type Description Date Medical History CAD with 10 stints Medical HistoryL/S spine artificial discs times twoMedical HistoryTKR bilateral Medical HistoryhypothyroidMedical HistoryhypertensionMedical HistoryRASurgical Historylumbar TDRremoteSurgical HistoryTKR bilateralremoteSurgical Historystint placement for CAD times 10remoteSurgical Historyquad bipass07/17/14Surgical Historydouble knee replacement Dr Harmony [id number] Historysee above [employer] Other History general Narrative - Reported* Type Description Date Medical History CAD with 10 stints Medical HistoryL/S spine artificial discs times twoMedical HistoryTKR bilateral Medical HistoryhypothyroidMedical HistoryhypertensionSurgical Historylumbar TDR remoteSurgical HistoryTKR bilateralremoteSurgical Historystint placement for CAD times 10remoteSurgical Historyquad bipass4/15Surgical Historydouble knee qazwoyqsaxw1902Moaiuiqctaxgnzd Historysee above [employer] Other History general Narrative - Reported* Type Description Date Medical History CAD with 10 stints Medical HistoryL/S spine artificial discs times twoMedical HistoryTKR bilateral Medical HistoryhypothyroidMedical HistoryhypertensionSurgical Historylumbar TDR remoteSurgical HistoryTKR bilateralremoteSurgical Historystint placement for CAD times 10remoteSurgical Historyquad bipass4/10/15Surgical Historydouble knee replacement Dr Harmony [id number] Historysee above [employer] Other History general Narrative - ReportedNosaint [facility] CAPPTURE Other Hisavfk general Narrative - Reported* Type Description Date Medical History CAD with 10 stints Medical HistoryL/S spine artificial discs times twoMedical HistoryTKR bilateral Medical HistoryhypothyroidMedical HistoryhypertensionMedical HistoryRASurgical Historylumbar TDRremoteSurgical HistoryTKR bilateralremoteSurgical Historystint placement for CAD times 10remoteSurgical Historyquad bipass4/10/15Surgical Historydouble knee replacement Dr Harmony SamanoDbvnxo4962Jnnwqnun HistoryLTHA07/04/21 Hospitalization Historysee above [employer] Other Hisyknb general Narrative - Reported* Type Description Date Medical History CAD with 10 stints Medical HistoryL/S spine artificial discs times twoMedical HistoryTKR bilateral Medical HistoryhypothyroidMedical HistoryhypertensionMedical HistoryRAMedical HistoryOSASurgical Historylumbar TDRremoteSurgical HistoryTKR bilateralremote Surgical Historystint placement for CAD times 10remoteSurgical Historyquad bipass4/10/15Surgical Historydouble knee replacement Dr Harmony SamanoGloxjz0514Hgnkylat HistoryLTHA07/04/21Hospitalization Historysee above [employer] Other Hisytvq general Narrative - Reported* Type Description Date Medical History ASHD Medical HistoryL/S spine artificial discs times twoMedical HistoryTKR bilateral Medical HistoryhypothyroidMedical HistoryhypertensionMedical HistoryOAMedical HistoryOSASurgical Historylumbar TDRremoteSurgical HistoryTKR bilateralremote Surgical Historystint placement for CAD times 10remoteSurgical Historyquad bipass4/15Surgical Historydouble knee replacement Dr Harmony SamanoMfcsrf2526Hmlhgymj HistoryLTHA07/04/21Hospitalization Historysee above [employer] Other History general Narrative - Reported* Type Description Date Medical History ASHD Medical HistoryL/S spine artificial discs times twoMedical HistoryTKR bilateral Medical HistoryhypothyroidMedical HistoryhypertensionMedical HistoryOAMedical HistoryOSASurgical Historylumbar TDRremoteSurgical HistoryTKR bilateralremote Surgical Historystint placement for CAD times 10remoteSurgical Historyquad bipass4//Surgical Historydouble knee replacement Dr Harmony SamanoDjecgm2518Ctupznyp HistoryLeft THA07/04/21Surgical HistoryRight THA02/2023Hospitalization Historysee above [employer] Other History general Narrative - Reported* Type Description Date Medical History ASHD Medical HistoryL/S spine artificial discs times twoMedical HistoryTKR bilateral Medical HistoryhypothyroidMedical HistoryhypertensionMedical HistoryOAMedical HistoryOSASurgical Historylumbar TDRremoteSurgical HistoryTKR bilateralremote Surgical HistoryCABG x 44/15Surgical HistoryLeft THA07/04/Surgical History Right THA02/2023Surgical HistoryLHC2/2Surgical HistoryLHC w/ PTCA/qrbne9907 Surgical GiskpyjJNR1324Tsaxjybn CzvolwoNEN7335Qyflnmwr HvlsranXAO2392Bimuovwd HistoryLHC w/ PTCA/vgdux0149Eslwebiqmosstdg Historysee above [employer] Other Hospital Discharge instructions Additional Instructions Joint Replacement Discharge Instructions Your safety during your recovery process is important to us. Please seek immediate emergency care if you have sudden chest pain or shortness of breath. Additionally, please call our office at [phone] should any of the following occur: wound [...] over time or it could last forever. MOOSE starr (stockinette): Wear them for 4 weeks on the operative side and 2 weeks on the nonoperative side. Try to wear these as 30/10 as possible to help decrease swelling. Weight Bearing, Walkers, and Canes: Do not remove your knee immobilizer. Do not walk without this until your therapist has removed it either on the first day after surgery or the second day after surgery. Do not attempt to walk without your walker and your patient care specialist until the therapist checks you [...] and/or laxatives as directed. You may take vmij-kyb-youycpl Benadryl if itching occurs without a rash or hives. Icing and elevation will help relieve pain as well, do not underestimate the power of ice and elevation. We do recommend that you stop taking narcotic pain medications by 4-6 weeks after surgery and if necessary, continue to use anti-inflammatory medications such as Mobic (meloxicam), Celebrex (celecoxib), or an eysj-bkp-oeevkwo medication (Aleve, Motrin, Ibuprofen, etc). Driving an [...] feel free to call our office at [phone]. You are a priority of ours and we will not be upset with you if you call. We would much rather you call to confirm aspects of your recovery process as opposed to possibly hindering your recovery with inappropriate care. We are committed to providing you with the best care possible. Sarai Mendez II, MD Updated 06/23/2022[facility] Work Phone: Hospital Discharge instructions Additional Instructions Stop Eliquis on 09/16/2024[facility] Work Phone: InstructionsNot on filedocumented in this encounter [facility] on filedocumented in this encounter [facility]ructionsNot on filedocumented in this encounter [facility]ructionsNot on filedocumented in this encounter [facility] SystemInstructionsNot on filedocumented in this encounter [facility] SystemProgress note Author Sally Alex [facility] August 31, 2023 3:45pmNote Date/TimeMay 2023 10:54[place] [address] Hospitalist Progress Note Signed with Addenda Patient: Esme Steven MR#: [id number] : 1960 Acct:[id number] Age/Sex: 62 / M Adm Date: 4 Loc: Room: [address] [place] [address] Type: ADM IN Attending Dr: Sally Alex [...] Tablet PO 02/26/24 22:54 0.5 mg QHS AEGLE Administration Apixaban 5 mg 08/30/23 22:55 08/31/23 [...] Tablet PO 08/30/24 06:29 150 mcg DAILY@0630 EAGEL Administration Methylprednisolone 4 mg 09/01/23 09:00 Methylprednisolone [...] signed by DO RADHA Zavala> 08/31/23 1054 [facility] Work Phone: Reason for referral (narrative)* Reason Referral for suspect ed PMR Known OA spine, hips, knees, hands Diagnosis 1 PMR (polymyalgia rhe umatica) (M35.3) Referral Organization [facility] [place] Referring Provider First Name Vitaliy Referring Provider Last Name Inocente Referring Provider Specialty Internal Wi dicine Referred Organization [facility] Referred Provider Sarai Georges Referred Address [address] [facility] [address],[place], [place],[address] Referral Priority Routine [place] CAPPTURE Other Reason for referral (narrative)* Diagnostic Procedure Only (Routine) - AuthorizedSpecialtyDiagnoses / ProceduresReferred By Contact Referred To ContactXR IMAGING Diagnoses Steroid-induced osteoporosis Procedures DXA-FOREARM SKELETON DXA BONE DENSITY STUDY 1/>SITES APPENDICLR Heladio David MD [address] [facility] [place] [address] [place] [address] Referral IDStatusReasonStart DateExpiration DateVisits RequestedVisits [id number] Auto-Generated Referral / [facility] for referral (narrative)* Diagnostic Procedure Only (Routine) - ClosedSpecialtyDiagnoses / ProceduresReferred By ContactReferred To ContactXR IMAGING Diagnoses Steroid-induced osteoporosis Procedures DXA-FOREARM SKELETON DXA BONE DENSITY STUDY 1/>SITES Heladio Alvarado MD [address] [place] [address] [place] [address] Referral IDStatusReasonStart DateExpiration DateVisits RequestedVisits [id number] Auto-Generated Referral [facility] for referral (narrative)* Consultation (Routine) - AuthorizedSpecialtyDiagnoses / ProceduresReferred By ContactReferred To ContactCardiology Diagnoses 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 (Multi) Procedures Follow Up In Cardiology Antonio Steele MD [address] [place] [address] 2, [address] [place] [address] Antonio Steele MD [address] [place] [address] 2, [address] [place] [address] Referral IDStatusReasonStart DateExpiration DateVisits RequestedVisits [id number]/11/20247/ [facility] Work Phone: Reason for visit Narrative* Diagnostic Procedure Only (Routine) - ClosedSpecialtyDiagnoses / ProceduresReferred By ContactReferred To ContactXR IMAGING Diagnoses Steroid-induced osteoporosis Procedures DXA-FOREARM SKELETON DXA BONE DENSITY STUDY 1/>SITES Heladio Alvarado MD [address] [facility] [address] [place] [address] Referral IDStatusReasonStart DateExpiration DateVisits RequestedVisits [id number] Auto-Generated Referral / [facility] for visit Narrative* Auth/CertSpecialtyDiagnoses / ProceduresReferred By ContactReferred To Contact Diagnoses Atrial fibrillation, unspecified type (Multi) Atrial fibrillation, unspecified type (Multi) [I48.91] Procedures OR EXCLUSION LEFT ATRIAL APPENDAGE OPEN ANY METHOD OR PERQ CLSR TCAT L ATR APNDGE W/ENDOCARDIAL IMPLNT OR PERQ CLSR TCAT L ATR APNDGE W/ENDOCARDIAL IMPLNT LAAO (Left Atrial Appendage Occlusion) [place] [address] [place] [address] Phone: tel: fax: [facility] [address] [address] Phone: tel: fax: Referral IDStatusReasonQuimby DateExpiration DateVisits RequestedVisits [id number] [facility] Work Phone: Reason for visit Narrative* Imaging (Routine) - AuthorizedSpecialtyDiagnoses / ProceduresReferred By ContactReferred To ContactRadiology Diagnoses Atrial fibrillation, unspecified type (Multi) Procedures [place] [address] [place] [address] Phone: tel: fax: Referral IDStatusReasonQuimby DateExpiration DateVisits RequestedVisits [id number] Perform Procedure [facility] Work Phone: Chief Complaint and Reason for [...] Complaint Hip pain Hip pain Chief Complaint 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 Mri Done At [facility] z47.1 z96.641 Flu Shot/ Bp Check 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 Recheck Left Shoulder Cannot Have Surger Chief Complaint 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 Mri Done At [facility] z47.1 z96.641 Flu Shot/ Bp Check 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 Recheck Left Shoulder Cannot Have Surger Z47.1/Z96.641 T84.84XA Z96.652 M79.662 Chief Complaint Flu Shot/ Bp Check 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 Recheck Left Shoulder Cannot Have Surger Z47.1/Z96.641 M25.562 T84.84XA Z96.652 M79.662 Amb Documentation 3 week recheck 2 WEEK RECHECK Check UpReason for VisitAftercare following hip joint replacement surgery History of total replacement of right hip Aftercare following hip joint replacement surgery History of total replacement of right hip ASHD (arteriosclerotic heart disease) GENESIS (generalized anxiety disorder) Hyperlipidemia Hypertension Hypothyroidism Chief Complaint Recheck Left Shoulde r Cannot Have Surger Z47.1/Z96.641 M25.562 T84.84XA Z96.652 M79.662 Amb Documentation 3 week recheck 2 WEEK RECHECK Check Up afibReason for VisitAftercare following hip joint replacement surgery History of total replacement of right hip Aftercare following hip joint replacement surgery History of total replacement of right hip ASHD (arteriosclerotic heart disease) Atrial fibrillation GENESIS (generalized anxiety disorder) Hypertension Chief Complaint Amb Documentation 3 week recheck 2 WEEK RECHECK Check Up afib chest pains SOB chillsReason for VisitAftercare following hip joint replacement surgery History of total replacement of right hip Aftercare following hip joint replacement surgery History of total replacement of right hip ASHD (arteriosclerotic heart disease) Atrial fibrillation GENESIS (generalized anxiety disorder) Hypertension Diverticulitis Elevated lactic acid level Migraine SIRS (systemic inflammatory response syndrome) Chief Complaint Amb Documentation 3 week recheck 2 WEEK RECHECK Check Up afib chest pains SOB chillsReason for VisitAftercare following hip joint replacement surgery History of [...] pains SOB chills Amb Documentation hospital follow upReason for VisitAftercare following hip joint replacement surgery History of total replacement of right hip ASHD (arteriosclerotic heart disease) GENESIS (generalized anxiety disorder) Acute diverticulitis Acute diverticulitis ASHD (arteriosclerotic heart disease) Inflammatory polyarthritis Persistent atrial fibrillation Primary hypertension Chief Complaint afib chest pains SOB chills Amb Documentation hospital follow up OP SP BILAT SHOULDER PAINReason for VisitAcute diverticulitis Elevated lactic acid level Acute diverticulitis ASHD (arteriosclerotic heart disease) Inflammatory polyarthritis Persistent atrial fibrillation Primary hypertension Biceps tendonitis on right Rotator cuff syndrome of right shoulder Traumatic complete tear of left rotator cuff Chief Complaint chest pains SOB chil ls Amb Documentation hospital follow up OP SP BILAT SHOULDER PAIN wellnessReason for VisitElevated lactic acid level ASHD (arteriosclerotic heart disease) [...] OP SP BILAT SHOULDER PAIN wellness Screening ScreeningReason for VisitBiceps tendonitis on right Rotator cuff syndrome of right shoulder Traumatic complete tear of left rotator cuff Acute right flank pain ASHD (arteriosclerotic heart disease) Atrial fibrillation GENESIS (generalized anxiety disorder) Gastroesophageal reflux disease with esophagitis without hemorrhage Hypercholesterolemia Hypothyroid FER (obstructive sleep apnea) Primary hypertension Screening PSA (prostate specific antigen) H/O diverticulitis of colon Wellness examination Chief Complaint wellness Screening Screening Amb Documentation i48.91Reason for VisitAcute right flank pain ASHD (arteriosclerotic heart disease) Atrial fibrillation GENESIS (generalized anxiety disorder) Gastroesophageal reflux disease with esophagitis without hemorrhage Hypercholesterolemia Hypothyroid FER (obstructive sleep apnea) Primary hypertension Screening PSA (prostate specific antigen) H/O diverticulitis of colon Wellness examination Chief Complaint wellness Screening Screening Amb Documentation i48.91 OP SP RT LONG FINGER PAIN WANTS INJReason for VisitAcute right flank pain ASHD (arteriosclerotic heart disease) [...] 2024 3:02pm ASHD (arteriosclerotic heart disease) [place] [facility] 2023 3:02pm Cough March 17, 2024 3 [...] Visit Admit Date ASHD (arteriosclerotic heart disease) [facility] 2024 1:11pm GENESIS (generalized anxiety disorder) July [...] Visit Admit Date ASHD (arteriosclerotic heart disease) [facility] 2024 1:11pm GENESIS (generalized anxiety disorder) July 01, 2024 1:11pm Gastroesophageal reflux dise ase with esophagitis without hemorrhage July 01, 2024 1:11pm Hypothyroid July 01, 2024 1:1 1pm Macrocytosis without anemia July 01, 2024 1:11pm Purpura of skin due to vascular fragilit y July 30, 2024 9:44am Abdominal pain July 30, 2024 9:4 4am Diverticulitis large intestine July 30r 2024 9:44am Chief Complaint Admit Date I48.91 May 29, 2024 9:53am Discuss BW July 01, 2024 1:1 1pm diverticulitis July 30, 2024 9:4 4am lt hip pain August 01, 2024 10: 46am M79.642 - Pain in left hand August 04, 2024 8:37am OP LT HAND INJURY August 04, 2024 9:0 3am Reason for Visit Admit Date ASHD (arteriosclerotic heart disease) [facility] 2024 1:11pm GENESIS (generalized anxiety disorder) July 01, 2024 1:11pm Gastroesophageal reflux dise ase with esophagitis without hemorrhage July 01, 2024 1:11pm Hypothyroid July 01, 2024 1:1 1pm Macrocytosis without anemia July 01, 2024 1:11pm Purpura of skin due to vascular fragilit y July 30, 2024 9:44am Abdominal pain July 30, 2024 9:4 4am Diverticulitis large intestine July 30r 2024 9:44am Contusion of left hand August 04, [...] Visit Admit Date ASHD (arteriosclerotic heart disease) [facility] 2024 1:11pm GENESIS (generalized anxiety disorder) July [...] Visit Admit Date ASHD (arteriosclerotic heart disease) [facility] 2024 1:11pm GENESIS (generalized anxiety disorder) July [...] m Chest Pain August 12, 2024 3:23pm [facility]: Chest Pain-HIGH RISK August 19 4:09pm Reason for Visit Admit Date ASHD (arteriosclerotic heart disease) [facility] 2024 1:11pm GENESIS (generalized anxiety disorder) July [...] 06, 2024 11:36am ASHD (arteriosclerotic heart disease) [facility] 2024 12:48pm Atrial fibrillation August 11, 2024 [...] m Chest Pain August 12, 2024 3:23pm [facility]: Chest Pain-HIGH RISK August 19 4:09pm afib [...] m Chest Pain August 12, 2024 3:23pm [facility]: Chest Pain-HIGH RISK August 19 4:09pm afib [...] 30 4:14pm ASHD (arteriosclerotic heart disease) Ju ne 2024 4:14pm Atypical chest pain September 30, [...] m Chest Pain August 12, 2024 3:23pm [facility]: Chest Pain-HIGH RISK August 19 4:09pm afib [...] m Chest Pain August 12, 2024 3:23pm [facility]: Chest Pain-HIGH RISK August 19 4:09pm afib [...] 2024 3:07am ASHD (arteriosclerotic heart disease) Sh[facility] 2024 3:07am Atrial fibrillation September 29, 2024 3:07 am Hypercholesterolemia September 29, 2024 3:0 7am Hypothyroid September 29, 2024 3:07 am FER (obstructive sleep apnea) September 29, 2024 3:07am Presence of Watchman left atrial appenda ge closure device September 29, 2024 3:07am Chest pain September 29, 2024 3:07 am ASHD (arteriosclerotic heart disease) Shannna 2024 4:14pm Hypercholesterolemia September 30, 2024 4:1 [...] 2024 4:1 4pm ASHD (arteriosclerotic heart disease) Shannan 2024 1:53pm Atrial fibrillation October 08, 2024 [...] 2024 10:51am Other spondylosis with radiculopathy, muriel ar region December 15, 2024 10:51am Chief Complaint [...] 2024 3:07am ASHD (arteriosclerotic heart disease) Shannan 2024 3:07am Atrial fibrillation September 29, 2024 3:07 am Hypercholesterolemia Aura 23rd, 2025 3:0 7am Hypothyroid September 29, 2024 3:07 [...] 2024 4:1 4pm ASHD (arteriosclerotic heart disease) Shannan 2024 1:53pm Atrial fibrillation October 08, 2024 [...] muriel mbar region December 15, 2024 10:51am Rib fracture [...] Admit Date ASHD (arteriosclerotic heart disease) Ju ly 2024 [...] 2024 10:51am Other spondylosis with radiculopathy, muriel ar region December 15, 2024 10:51am Acute bronchitis [...] Admit Date ASHD (arteriosclerotic heart disease) Ju ly 2024 [...] 15, 2024 10:51am Other spondylosis with radiculopathy, [facility] December 15, 2024 10:51am Acute bronchitis due to other specified organisms December 26, 2024 9:33am Rib fracture December 26, 2024 9:33am Laceration of leg excluding thigh, with complication December 26, 2024 9:33am Cellulitis of leg without foot, left Sep tember 2024 9:33am Low back pain January 05, 2025 9:45am Other chronic pain January 05, 2025 9:45am Other spondylosis with radiculopathy, [facility] January 05, 2025 9:45am Chief Complaint [...] 15, 2024 10:51am Other spondylosis with radiculopathy, [facility] December 15, 2024 10:51am Acute bronchitis due to other specified organisms December 26, 2024 9:33am Rib fracture December 26, 2024 9:33am Laceration of leg excluding thigh, with complication December 26, 2024 9:33am Cellulitis of leg without foot, left Sep tember 2024 9:33am Low back pain January 05, 2025 9:45am Other chronic pain January 05, 2025 9:45am Other spondylosis with radiculopathy, [facility] January 05, 2025 9:45am Greater trochanteric [...] leg wound January 12, 2025 2: 23pm Chief Complaint Admit Date Drug Load December 09, 2024 8:11am Back [...] leg wound January 12, 2025 2: 23pm M47.26 G89.29 M54.50 January 27, 2025 8:52pm Reason for Visit Admit Date Persistent atrial fibrillation December 09, 2024 8:11am Other spondylosis with radiculopathy, [facility] December 15, 2024 10:51am Low back pain December 15, 2024 10:51am Other chronic pain December 15, 2024 10:51am Acute bronchitis due to other specified organisms December 26, 2024 9:33am Rib fracture December 26, 2024 9:33am Laceration of leg excluding thigh, with complication December 26, 2024 9:33am Cellulitis of leg without foot, left Sep tember 2024 9:33am Other spondylosis with radiculopathy, [facility] January 05, 2025 9:45am Low back pain January 05, 2025 9:45am Other chronic pain January 05, 2025 9:45am Greater trochanteric bursitis of right h ip January 07, 2025 12:22pm History of total right hip arthroplasty January 07, 2025 12:22pm ASHD (arteriosclerotic heart disease) Oc tober 2024 2:23pm Low back pain radiating to right leg Oct [place] 2024 2:23pm Nonhealing ulcer of left lower leg Octob er 2024 2:23pm Type 2 diabetes mellitus with hyperglyce esvin January 12, 2025 2:23pm Chief Complaint Admit Date Drug Load December 09, 2024 8:11am Back [...] leg wound January 12, 2025 2: 23pm M47.26 G89.29 M54.50 January 27, 2025 8:52pm MRI RESULTS [facility] January 29, 2025 1 0:02am Reason for Visit Admit Date Persistent atrial fibrillation December 09, 2024 8:11am Other spondylosis with radiculopathy, [facility] December 15, 2024 10:51am Low back pain December 15, 2024 10:51am Other chronic pain December 15, 2024 10:51am Acute bronchitis due to other specified organisms December 26, 2024 9:33am Rib fracture December 26, 2024 9:33am Laceration of leg excluding thigh, with complication December 26, 2024 9:33am Cellulitis of leg without foot, left Sep tember 2024 9:33am Other spondylosis with radiculopathy, [facility] January 05, 2025 9:45am Low back pain January 05, 2025 9:45am Other chronic pain January 05, 2025 9:45am Greater trochanteric bursitis of right h ip January 07, 2025 12:22pm History of total right hip arthroplasty January 07, 2025 12:22pm ASHD (arteriosclerotic heart disease) Oc to[facility] 2024 2:23pm Low back pain radiating to right leg Oct [place] 2024 2:23pm Nonhealing ulcer of left lower leg Octob er 2024 2:23pm Type 2 diabetes mellitus with hyperglyce esvin January 12, 2025 2:23pm Other spondylosis with radiculopathy, [facility] January 29, 2025 10:02am Low back pain January 29, 2025 1 0:02am Other chronic pain January 29, 2025 1 0:02am Chief Complaint Admit Date Drug Load December 09, 2024 8:11am Back [...] leg wound January 12, 2025 2: 23pm M47.26 G89.29 M54.50 January 27, 2025 8:52pm MRI RESULTS [facility] January 29, 2025 1 0:02am back pain January 29, 2025 5 :26pm Family History No Family History Records Found Relationship Condition Age at Onset Recorded Date/T daren Not Specified Cerebrovascular accident (CVA) Unknown Calculus of kidneyUnknownPresence of cardiac pacemakerUnknownfatherCoronary artery diseaseUnknownbrotherCerebral aneurysmUnknownbrotherMalignant neoplasm Unknown Relationship Condition Age at Onset Recorded Date/T daren Not Specified Calculus of kidney Unknown Presence of cardiac pacemakerUnknownCerebrovascular accident (CVA)Unknownfather Coronary artery diseaseUnknownbrotherCerebral aneurysmUnknownbrotherExposure to Agent OrangeUnknown Relationship Condition Age at Onset Recorded Date/T daren Not Specified Calculus of kidney Unknown Presence of cardiac pacemakerUnknownCerebrovascular accident (CVA)Unknownfather Coronary artery diseaseUnknownbrotherCerebral aneurysmUnknownbrotherExposure to Agent OrangeUnknownbrotherDeceasedUnknownfatherDeceasedUnknownNot Specified DeceasedUnknownHistory of strokeUnknownHeart diseaseUnknown Relationship Condition Age at Onset Recorded Date/T daren Not Specified Calculus of kidney Unknown Presence of cardiac pacemakerUnknownCerebrovascular accident (CVA)UnknownHistory of strokeUnknownDeceasedUnknownHeart diseaseUnknownfatherCoronary artery diseaseUnknownbrotherCerebral aneurysmUnknownExposure to Agent OrangeUnknown Relationship Condition Age at Onset Recorded Date/T daren mother Calculus of kidney Unknown Presence of cardiac pacemakerUnknownCerebrovascular accident (CVA)UnknownHistory of strokeUnknownDeceasedUnknownHeart diseaseUnknownfatherCoronary artery diseaseUnknownbrotherCerebral aneurysmUnknownExposure to Agent OrangeUnknown Relationship Condition Age at Onset Recorded Date/T daren mother Heart disease Unknown Calculus of kidneyUnknownDeceasedUnknownPresence of cardiac pacemakerUnknown Cerebrovascular accident (CVA)UnknownfatherHistory of coronary artery stent placementUnknownCoronary artery diseaseUnknownbrotherDeceasedUnknownExposure to Agent OrangeUnknownbrotherCerebral aneurysmUnknown Advance Directives No Advanced Directives Records Found Advance Directive Response Recorded Date/ Time Advance Directives No January 25, 2017 2:08pm Advance Directive Response Recorded Date/ Time Advance Directives No January 25, 2017 1:08pm Date ActivatedDate KwobdxvoyfqKqkmsklc28/22/2024 9:31 AMQuestionAnswerComments Plan of Care:* Code Status Discussion Completed Decision Maker:* Patient Date ActivatedDate RfdjwdhoubeOxemxvgz52/22/2024 9:31 AMQuestionAnswerComments Plan of Care:* Code Status Discussion Completed Decision Maker:* Patient Reason for Referral SpecialtyDiagnoses / ProceduresReferred By ContactReferred To Contact Diagnoses Persistent atrial fibrillation ([facility]) Procedures Cardioversion Sarai Barry MD [address] [place] [address] Referral IDStatusReasonStart DateExpiration DateVisits RequestedVisits [id number] Review/[id number] / ProceduresReferred By ContactReferred To Contact Diagnoses 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 (Multi) Procedures ECG 12 Lead Antonio Steele MD [address] [facility], [address] [address] Referral IDStatusReasonStart DateExpiration DateVisits RequestedVisits [id number]/19/20244/[id number] / Procedures Referred By ContactReferred To ContactCardiology Diagnoses 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 (Multi) 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 Procedures Cardioversion External Antonio Steele MD [address] [facility] [address], [address] [address] Referral IDStatusReasonStart DateExpiration DateVisits RequestedVisits [id number] Review1Referral IDStatusReasonStart DateExpiration DateVisits RequestedVisits [id number]/19/[id number] / ProceduresReferred By ContactReferred To Contact Cardiology Diagnoses 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 (Multi) Procedures Follow Up In Cardiology Antonio Steele MD [address] [facility] [address], [address] [address] Antonio Steele MD [address] [facility] [address], [address] [address] Referral IDStatusReasonStnewbury DateExpiration DateVisits RequestedVisits [id number]/19/20244/19/202511 Reason *FU 11/[address] efer to dr pineda for rheumatology. labs with Dr Brower. Saw [facility], wants second opinion Diagnosis 1 Multiple joint pain (M25.50) Referral Organization [facility] Referring Provider First Name Melinda Referring Provider Last Name Luba Referring Provider Specialty Nurse Pract itioner Referred Organization [facility] Referred Provider Heladio Pineda Referred Address [address], [place],[address] Referred Provider Specialty Internal Med icine Referral [...] Tongue ulceration (K 14.0) Referral Organization [facility] Referring Provider First Name Vitaliy Referring Provider Last Name Inocente Referring Provider Specialty Internal Me dicine Referred Organization [facility] Referred Provider Farrah Blackburnary Referred Address ,[place], [place],[address] Referred Provider Specialty Ear, Nose an d [...] or prosecute any alcohol or drug abuse patient.[facility] HealthIn the event this information is protected by the Federal Confidentiality of Alcohol and Drug Abuse Patient Records regulations: The Federal rules restrict any use of the information to criminally investigate or prosecute any alcohol or drug abuse patient.[facility] HealthIn the event this information is protected by the Federal Confidentiality of Alcohol and Drug Abuse Patient Records regulations: The Federal rules restrict any use of the information to criminally investigate or prosecute any alcohol or drug abuse patient.[facility] HealthIn the event this information is protected by the Federal Confidentiality of Alcohol and Drug Abuse Patient Records regulations: The Federal rules restrict any use of the information to criminally investigate or prosecute any alcohol or drug abuse patient.[facility] HealthIn the event this information is protected by the Federal Confidentiality of Alcohol and Drug Abuse Patient Records regulations: The Federal rules restrict any use of the information to criminally investigate or prosecute any alcohol or drug abuse patient.[facility] HealthIn the event this information is protected by the Federal Confidentiality of Alcohol and Drug Abuse Patient Records regulations: The Federal rules restrict any use of the information to criminally investigate or prosecute any alcohol or drug abuse patient.[facility] HealthIn the event this information is protected by the Federal Confidentiality of Alcohol and Drug Abuse Patient Records regulations: The Federal rules restrict any use of the information to criminally investigate or prosecute any alcohol or drug abuse patient.[facility] HealthIn the event this information is protected by the Federal Confidentiality of Alcohol and Drug Abuse Patient Records regulations: The Federal rules restrict any use of the information to criminally investigate or prosecute any alcohol or drug abuse patient.[facility] HealthIn the event this information is protected by the Federal Confidentiality of Alcohol and Drug Abuse Patient Records regulations: The Federal rules restrict any use of the information to criminally investigate or prosecute any alcohol or drug abuse patient.[facility] HealthIn the event this information is protected by the Federal Confidentiality of Alcohol and Drug Abuse Patient Records regulations: The Federal rules restrict any use of the information to criminally investigate or prosecute any alcohol or drug abuse patient.[facility] HealthIn the event this information is protected by the Federal Confidentiality of Alcohol and Drug Abuse Patient Records regulations: The Federal rules restrict any use of the information to criminally investigate or prosecute any alcohol or drug abuse patient.[facility] HealthIn the event this information is protected by the Federal Confidentiality of Alcohol and Drug Abuse Patient Records regulations: The Federal rules restrict any use of the information to criminally investigate or prosecute any alcohol or drug abuse patient.[facility] HealthIn the event this information is protected by the Federal Confidentiality of Alcohol and Drug Abuse Patient Records regulations: The Federal rules restrict any use of the information to criminally investigate or prosecute any alcohol or drug abuse patient.[facility] HealthIn the event this information is protected by the Federal Confidentiality of Alcohol and Drug Abuse Patient Records regulations: The Federal rules restrict any use of the information to criminally investigate or prosecute any alcohol or drug abuse patient.[facility] HealthIn the event this information is protected by the Federal Confidentiality of Alcohol and Drug Abuse Patient Records regulations: The Federal rules restrict any use of the information to criminally investigate or prosecute any alcohol or drug abuse patient.[facility] HealthIn the event this information is protected by the Federal Confidentiality of Alcohol and Drug Abuse Patient Records regulations: The Federal rules restrict any use of the information to criminally investigate or prosecute any alcohol or drug abuse patient.[facility] HealthIn the event this information is protected by the Federal Confidentiality of Alcohol and Drug Abuse Patient Records regulations: The Federal rules restrict any use of the information to criminally investigate or prosecute any alcohol or drug abuse patient.[facility] HealthIn the event this information is protected by the Federal Confidentiality of Alcohol and Drug Abuse Patient Records regulations: The Federal rules restrict any use of the information to criminally investigate or prosecute any alcohol or drug abuse patient.[facility] REASON FOR VISIT (unrecogniz ed section and content) ReasonCommentsConsultPainOngoing generalized pain.ReasonCommentsResultsReason CommentsRefill RequestReasonCommentsFollow UpReasonCommentsResultsOrdersReason CommentsNew Patient FgbovEfhl-qhba-bqsgddhfa care, previous [facility] patient SpecialtyDiagnoses / ProceduresReferred By ContactReferred To Contact Diagnoses 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 (Multi) Procedures ECG 12 Lead Antonio Steele MD [address] [facility], [place] [address] [place] [address] Referral IDStatusReasonStart DateExpiration DateVisits RequestedVisits [id number]/19/20244/19/[id number] visitSpecialty Diagnoses / ProceduresReferred By ContactReferred To Contact Diagnoses 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 (Multi) Procedures ECG 12 Lead Antonio Steele MD [address], [place] [address] [place] [address] Referral [facility]Status[facility] ServicesStnewbury DateExpiration DateVisits RequestedVisits [id number]/19/20244/19/273189GjvsvbOittv DateCommentsRefill Noietuw42/05/2024ReasonCommentsFollow-upWatchman 01/29/24ReasonCommentsFollow-up 3 monthSpecialtyDiagnoses / ProceduresReferred By ContactReferred To Contact Cardiology Diagnoses 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 (Multi) Procedures Follow Up In Cardiology Antonio Steele MD [address], [place] [address] [place] [address] Antonio Steele MD [address], [place] [id number] Referral IDStatusReasonStart DateExpiration DateVisits RequestedVisits [id number]/19/20244/19/[id number]lqjagac Diagnoses / ProceduresReferred By ContactReferred To ContactCardiology Diagnoses Persistent atrial fibrillation (Multi) Antonio Steele MD [address] [facility], [place] [phone] [place] [address] [place] [id number] Referral IDStatusReasonStart DateExpiration DateVisits RequestedVisits [id number] Specialty Services Required /[id number] RefillReasonCommentsFollow-up6M and [facility] 4Coronary Artery DiseaseHypertensionAtrial FibrillationHospital Follow-upReasonOnset DateCommentsEP Surgery (CDVN)4ReasonOnset Date CommentsEP Surgery ( Pt Education)4ReasonCommentsFollow UpPainOngoing generalized pain.ReasonCommentsFollow-up6 month follow up for cardiomyopathy SpecialtyDiagnoses / ProceduresReferred By ContactReferred To ContactCardiology Diagnoses Multi-vessel coronary artery stenosis Procedures Follow Up In Cardiology Antonio Steele MD [address] [facility] [address], [address] [address] Phone: tel: fax: Antonio Steele MD [address] [facility], [place] [phone] Phone: tel: fax: Referral IDStatusReasonStart DateExpiration DateVisits RequestedVisits [id number]/7/202411/7/[id number]umkzmpumf ReasonCommentsOsteoarthritisCPPDPMRReasonCommentsCPPDGoutArthritisReasonComments Follow-up3 months dccSpecialtyDiagnoses / ProceduresReferred By ContactReferred To ContactCardiology Diagnoses Multi-vessel coronary artery stenosis Procedures Follow Up In Cardiology Antonio Steele MD [address] [facility] 2, [place] [address] [place], [place] [id number] Phone: tel: fax: Antonio Steele MD [address] [facility] 2, [place] [id number] Phone: tel: fax: Referral IDStatusReasonStart DateExpiration DateVisits RequestedVisits [id number]/[id number]-adYCS visit SpecialtyDiagnoses / ProceduresReferred By ContactReferred To Contact Diagnoses History of cardioversion Abnormal electrocardiogram (ECG) (EKG) Persistent atrial fibrillation (Multi) Procedures ECG 12 Lead Antonio Steele MD [address] [facility] 2, [place] [id number] Phone: tel: fax: Referral IDStatusReasonStnewbury DateExpiration DateVisits RequestedVisits [id number]-zbCXH results SpecialtyDiagnoses / ProceduresReferred By ContactReferred To ContactCardiology Diagnoses Multi-vessel coronary artery stenosis Procedures Follow Up In Cardiology Antonio Steele MD [address] [facility] 2, [place] [id number] Phone: tel: fax: Antonio Steele MD [address] [facility] 2, [place] [id number] Phone: tel: fax: Referral Aries DateExpiration DateVisits RequestedVisits [id number]/13/20258/13/[id number] Pain Care Teams (unrecognized sec tion and content) Team Status: Active Member Role Status Dates Vitaliy Brower DO Primary Care Provider Active Team Status: Inactive Member Role Status Dates Vitaliy Brower DO Primary Care Provider Active Start: October 08, 2024 End: October 08enrigoberto Brower DOAttending ProviderActiveStart: October 08, 2024 End: October 08, 2024 Team Status: Inactive Member Role Status Dates Vitaliy Brower DO Primary Care Provider Active Start: October 23, 2024 End: October 23, 2024Sarai Mendez II, MDAttending ProviderActiveStart: October 23, 2024 End: October 23, 2024 Team Status: Inactive Member Role Status Dates Vitaliy Brower DO Primary Care Provider Active Start: December 09, 2024 End: December 12, 2024Monanci Steele MDAdmit ProviderActiveStart: December 09, 2024 End: December 12, 2024Antonio Clancyssjulia MDAttending ProviderActiveStart: December 09, 2024 End: December 12, 2024 Team Status: Inactive Member Role Status Dates Vitaliy Brower DO Primary Care Provider Active Start: December 15, 2024 End: December 15, 2024Jonathan Samano MDAttending ProviderActiveStart: December 15, 2024 End: December 15, 2024 Team Status: Active Member Role Status Dates Vitaliy Brower DO Primary Care Provider Active Start: December 15, 2024 Marcela Ortiz CMAAttending ProviderActiveStart: December 15, 2024 Team Status: Active Member Role Status Dates Vitaliy Brower DO Primary Care Provider Active Start: 2024 Isabel Araiza ProviderActiveStart: 2024 Team Status: Active Member Role Status Dates Vitaliy Brower DO Primary Care Provider Active Start: December 18, 2024 Marcela Ortiz CMAAttending ProviderActiveStart: December 18, 2024 Team Status: Inactive Member Role Status Dates Vitaliy Brower DO Primary Care Provider Active Start: December 26, 2024 End: December 26enrigoberto Brower , DOAttending ProviderActiveStart: December 26, 2024 End: December 26, 2024 Team Status: Inactive Member Role Status Dates Vitaliy Brower DO Primary Care Provider Active Start: December 29, 2024 End: December 29, 2024Jonathan Samano MDAttending ProviderActiveStart: December 29, 2024 End: December 29, 2024 Team Status: Active Member Role Status Dates Vitaliy Brower DO Primary Care Provider Active Start: September 28, 2024 Fang Zhu , MDAttending ProviderActiveStart: September 28, 2024 Team Status: Inactive Member Role Status Dates Vitaliy Brower DO Primary Care Provider Active Start: September 29, 2024 End: September 29, 2024Salinas Ascencio DOAdmit ProviderActiveStart: September 29, 2024 End: September 29, 2024Rapetey Cabello , MDAttending ProviderActiveStart: September 29, 2024 End: September 29, 2024 Team Status: Inactive Member Role Status Dates Vitaily Brower DO Primary Care Provider Active Start: September 30, 2024 End: October 01Gabe Salazar ProviderActiveStart: September 30, 2024 End: October 01azmichael Nuno DOAdmit ProviderActiveStart: September 30, 2024 End: October 01azmichael Nuno DOAttending ProviderActiveStart: September 30, 2024 End: October 01, 2024John Rice ProviderActiveStart: September 30, 2024 End: October 01, 2024 Team Status: Inactive Member Role Status Dates Vitaliy Brower DO Primary Care Provider Active Start: July 30, 2024 End: July 30ana Brower DOAttending ProviderActiveStart: July 30, 2024 End: July 30, 2024 Team Status: Inactive Member Role Status Dates Vitaliy Brower DO Primary Care Provider Active Start: August 01, 2024 End: August 01, 2024Bettye Brizuela ProviderActiveStart: August 01, 2024 End: August 01, 2024 Team Status: Inactive Member Role Status Dates Vitaliy Brower DO Primary Care Provider Active Start: August 04, 2024 End: August 04aimee Nichole MDAttending ProviderActiveStart: August 04, 2024 End: August 04, 2024 Team Status: Inactive Member Role Status Nader Brower DO Primary Care Provider Active Start: August 06, 2024 End: August 06, 2024Robedwar Mendez II, MDAttending ProviderActiveStart: August 06, 2024 End: August 06, 2024 Team Status: Inactive Member Role Status Nader Brower DO Primary Care Provider Active Start: August 11, 2024 End: August 13, 2024PaAlmita Rosales ProviderActiveStart: August 11, 2024 End: August 13, 2024Mosavannah Connelly MDAdmit ProviderActiveStart: August 11, 2024 End: August 13, 2024Mosavannah Connelly MDAttending ProviderActiveStart: August 11, 2024 End: August 13, 2024Mary Ann Miller RNOther ProviderActiveStart: August 11, 2024 End: August 13, 2024W Thaddeus Valle DOOther ProviderActiveStart: August 11, 2024 End: August 13, 2024Hapolo Arce MDOther ProviderActiveStart: August 11, 2024 End: August 13, 2024Nehemiah Mcknight MDOther ProviderActiveStart: August 11, 2024 End: August 13, 2024Monanci Steele MDOther ProviderActiveStart: August 11, 2024 End: August 13arnulfo Posadas MDOther ProviderActiveStart: August 11, 2024 End: August 13, 2024Marivel Brito ProviderActiveStart: August 11, 2024 End: August 13, 2024Tami Steele MDOther ProviderActiveStart: August 11, 2024 End: August 13, 2024Arnaldo Mccarty MDOther ProviderActiveStart: August 11, 2024 End: August 13, 2024Tajoseph Foote MDOther ProviderActiveStart: August 11, 2024 End: August 13ADEILNA Francis-UMUOther ProviderActiveStart: August 11, 2024 End: August 13, 2024 Team Status: Active Member Role Status Dates Vitaliy Brower DO Primary Care Provider Active Start: August 12, 2024 Marcela Ortiz CMAAttfatimah ProviderActiveStart: August 12, 2024 Team Status: Active Member Role Status Dates Vitaliy Brower DO Primary Care Provider Active Start: August 12, 2024 Winnie Grande DOEmergency ProviderActiveStart: August 12, 2024 Portia Pineda ProviderActiveStart: August 12, 2024 Lydia Connelly MDOther ProviderActiveStart: August 12, 2024 Mary Ann Miller RNOther ProviderActiveStart: August 12, 2024 Kathy Valle DOOther ProviderActiveStart: August 12, 2024 Lala rAce MDOther ProviderActiveStart: August 12, 2024 Nehemiah Mcknight MDOther ProviderActiveStart: August 12, 2024 Antonio tSeele MDOther ProviderActiveStart: August 12, 2024 Dutch Posadas MDOther ProviderActiveStart: August 12, 2024 Geno Corona APRNOther ProviderActiveStart: August 12, 2024 Tami Steele MDOther ProviderActiveStart: August 12, 2024 Arnaldo Mccarty MDOther ProviderActiveStart: August 12, 2024 Munir Foote MDOther ProviderActiveStart: August 12, 2024 Nicolle Amaya , REWORK OPERATOR-BCOther ProviderActiveStart: August 12, 2024 Ada Woodruff MDAttending ProviderActiveStart: August 12, 2024 Team Status: Inactive Member Role Status Dates Vitaliy Brower DO Primary Care Provider Active Start: August 19, 2024 End: August 19ana Brower DOAttfatimah ProviderActiveStart: August 19, 2024 End: August 19, 2024 Team Status: Inactive Member Role Status Dates Vitaliy Brower DO Primary Care Provider Active Start: September 09, 2024 End: September 09, 2024Rosa Rice ProviderActiveStart: September 09, 2024 End: September 09, 2024 Team Status: Active Member Role Status Dates Vitaliy Brower DO Primary Care Provider Active Start: June 30, 2024 Heladio Silva ProviderActiveStart: June 30, 2024 Team Status: Inactive Member Role [...] Start: August 11, 2024 End: August 13, 2024PaAlmita Rosales ProviderActiveStart: August 11, 2024 End: August 13, 2024MoPortia Sheffield Provider, Attending ProviderActive Start: August 11, 2024 End: August 13, 2024Mary Ann Miller RNOther ProviderActiveStart: August 11, 2024 End: August 13, 2024W Thaddeus Valle DOOther ProviderActiveStart: August 11, 2024 End: August 13, 2024Lala Arce MDOther ProviderActiveStart: August 11, 2024 End: August 13, 2024Nehemiah Mcknight MDOther ProviderActiveStart: August 11, 2024 End: August 13, 2024Antonio Steele MDOther ProviderActiveStart: August 11, 2024 End: August 13arnulfo Posadas MDOther ProviderActiveStart: August 11, 2024 End: August 13, 2024Marivel Brito ProviderActiveStart: August 11, 2024 End: August 13, 2024Tami Steele MDOther ProviderActiveStart: August 11, 2024 End: August 13, 2024Mojanice Mccarty MDOther ProviderActiveStart: August 11, 2024 End: August 13, 2024Tajoseph Foote MDOther ProviderActiveStart: August 11, 2024 End: August 13THERESE FrancisOther ProviderActiveStart: August 11, 2024 End: August 13, 2024 Team Status: Active Member Role Status Dates Vitaliy Brower DO Primary Care Provider Active Start: August 12, 2024 Winnie M Tupa , DOEmergency ProviderActiveStart: August 12, 2024 Lydia Connelly MDAdmit Provider, Other ProviderActiveStart: August 12, 2024 Mary Ann Miller RNOther ProviderActiveStart: August 12, 2024 Kathy Valle DOOther ProviderActiveStart: August 12, 2024 Lala Arce MDOther ProviderActiveStart: August 12, 2024 Nehemiah Mcknight MDOther ProviderActiveStart: August 12, 2024 Antonio Steele MDOther ProviderActiveStart: August 12, 2024 Dutch Posadas MDOther ProviderActiveStart: August 12, 2024 Geno Corona APRNOther ProviderActiveStart: August 12, 2024 Tami Steele MDOther ProviderActiveStart: August 12, 2024 Arnaldo Mccarty MDOther ProviderActiveStart: August 12, 2024 Munir Foote MDOther ProviderActiveStart: August 12, 2024 CLAUDIA JohnsonP-BCOther ProviderActiveStart: August 12, 2024 Ada Woodruff MDAttending ProviderActiveStart: August 12, 2024 Team Status: Inactive Member Role Status Dates Vitaliy Brower DO Primary Care Provide r, Attending Provider Active Start: August 19, 2024 End: August 19, 2024 Team Status: Inactive Member Role Status Dates Vitaliy Brower DO Primary Care Provider Active Start: May 29, 2024 End: May 29, 2024Bird Kowalski MDAttfatimah ProviderActiveStart: May 29, 2024 End: May 29, 2024 Team Status: Active Member Role Status Dates Vitaliy Brower DO Primary Care Provider Active Start: April 22, 2024 Marcela Ortiz CMAAttfatimah ProviderActiveStart: April 22, 2024 Team Status: Inactive Member Role Status Dates Vitaliy Brower DO Primary Care Provide r, Attending Provider Active Start: May 02, 2024 End: May 02, 2024 Team Status: Inactive Member Role Status Dates Vitaliy Brower DO Primary Care Provider Active Start: August 30, 2023 End: September 01, 2023Gabe Rucker ProviderActiveStart: August 30, 2023 End: September 01, 2023Elliott Talley MDAdmit ProviderActiveStart: August 30, 2023 End: September 01, 2023Rosa Phipps ProviderActiveStart: August 30, 2023 End: September 01, 2023 Team Status: Active Member Role Status Nader Brower DO Primary Care Provider Active Start: September 05, 2023 Heladio Blackkalyan ProviderActiveStart: September 05, 2023 Team Status: Active Member Role Status Nader Brower DO Primary Care Provider Active Start: September 07, 2023 Juana Debra Beltran ProviderActiveStart: September 07, 2023 Team Status: Inactive Member Role Status Nader Brower DO Primary Care Provide r, Attending Provider Active Start: September 07, 2023 End: September 07, 2023 Team Status: Inactive Member Role Status Nader Brower DO Primary Care Provider Active Start: October 02, 2023 End: October 02, 2023Sukhjinder Montesinos DOAttending ProviderActiveStart: October 02, 2023 End: October 02, 2023 [...] Start: August 02, 2023 End: August 02, 2023Antonio Steele MDAttending Provider, Referring ProviderActiveStart: August 02, 2023 End: August 02, 2023 Team Status: Inactive Member Role Status Nader Brower DO Primary Care Provider Active Start: June 20, 2023 End: June 19shirley Mendez II MDAttending ProviderActiveStart: June 20, 2023 End: June 20, 2023 Team Status: Inactive Member Role Status Nader Brower DO Primary Care Provide r, Attending Provider Active Start: June 29, 2023 End: June 29, 2023 Team Status: Active Member Role Status Nader Brower DO Primary Care Provider Active Start: June 04, 2023 Thao Noble ProviderActiveStart: June 04, 2023 Team Status: Inactive Member Role Status Dates Vitaliy Ball , DO Primary Care Provider Active Start: June 06, 2023 End: June 06shirley Mendez II, MDAttending ProviderActiveStart: June 06, 2023 End: June 06, 2023 Team Status: Active Member Role Status Dates Vitaliy Brower , DO Primary Care Provider Active Start: August 30, 2023 Gabe Rucker ProviderActiveStart: August 30, 2023 Elliott Talley , MDAdmit Provider, Attending ProviderActiveStart: August 30, 2023 Team Status: Inactive Member Role Status Dates Vitaliy Brower , DO Primary Care Provider Active Sarai Mendez II, MDAttending ProviderActive Team Status: Inactive Member Role Status Dates Vitaliy Brower , DO Primary Care Provider, Attending Elsa carter Active Team Status: Inactive Member Role Status Dates Vitaliy Brower , DO Primary Care Provider Active Chio Nichole MDAttending ProviderActive Team Status: Inactive Member Role Status Dates Vitaliy Brower , DO Primary Care Provider Active Jonathan Samano MDAttending ProviderActive Team Status: Inactive Member Role Status Dates Vitaliy Brower , DO Primary Care Provider Active Bettye Brizuela ProviderActive Team Status: Inactive Member Role Status Dates Vitaliy Brower , DO Primary Care Provider Active Melinda Verduzco NP-Barbie ProviderActive Team Status: Inactive Member Role Status Dates Vitaliy Brower , DO Primary Care Provider Active Sarai Georges MDAttending ProviderActive Team Status: Inactive Member Role Status Dates Vitaliy Brower , DO Primary Care Provider Active Nat Beatty ProviderActiveTeam MemberRelationshipSpecialty Start DateEnd Date Vitaliy Brower DO [address] [id number] PCP - GeneralInternal Medicine01/05/23 Melinda Verduzco, TROUBLE CLERK [facility] [address] [place] [address] ReferringOrthopedics11/24/22Team MemberRelationshipSpecialtyStart DateEnd Date Vitaliy Brower, [address] [place] [facility] [place] [address] PCP - GeneralInternal Medicine01/05/23 Melinda Verduzco, TROUBLE CLERK [address] [place] [address] ReferringOrthopedi11/24/22Team MemberRelationshipSpecialtyStart DateEnd Date Vitaliy Brower DO [address] [place] [facility] [address] PCP - GeneralInternal Medicine01/05/23 Melinda Verduzco, TROUBLE CLERK [address] [place] [address] ReferringOrthopedi11/24/22Team MemberRelationshipSpecialtyStart DateEnd Date Vitaliy Brower DO [address] [place] [facility] [address] PCP - GeneralInternal Medicine01/05/23 Melinda Verduzco, TROUBLE CLERK [address] [place] [address] ReferringOrthopesierra [facility]11/24/22 Team Status: Inactive Member Role Status Dates Provider Conversion Attending Provider Active St art: March 15, 2023 End: March 15, 2023 Team Status: Inactive Member Role Status Dates Vitaliy Brower DO Primary Care Provider Active Start: March 29, 2023 End: March 29, 2023Robedwar Mendez II, MDAttending ProviderActiveStart: March 29, 2023 End: March 29, 2023 [...] Active Start: May 16, 2023 End: May 16shirley Mendez II, YONASttending ProviderActiveStart: May 16, 2023 End: May 16, 2023 Team Status: Inactive Member Role Status Dates Vitaliy Brower DO Primary Care Provider Active Start: May 21, 2023 End: May 21shirley Mendez II, MDAttending ProviderActiveStart: May 21, 2023 End: May 21, 2023 Team Status: Inactive Member Role Status Dates Vitaliy Brower DO Primary Care Provider Active Start: May 21, 2023 End: May 21, 2023Elliot Dealtenkalyan ProviderActiveStart: May 21, 2023 End: May 21, 2023Team MemberRelationshipSpecialtyStart DateEnd Date Vitaliy Brower DO [address] [place] [address] PCP - GeneralInternal Medicine01/05/23 Melinda Verduzco, TROUBLE CLERK [address] [address] ReferringOrthopedics11/24/22Team MemberRelationshipSpecialtyStart DateEnd Date Vitaliy Brower DO [address] [place] [address] PCP - GeneralInternal Medicine01/05/23 Melinda Verduzco, TROUBLE CLERK [address] [place] [address] ReferringOrthopedics11/24/22Team MemberRelationshipSpecialtyStart DateEnd Date Vitaliy Brower, DO [address] [place] [address] PCP - GeneralInternal Medicine01/05/23 Melinda Verduzco, TROUBLE CLERK [address] [place] [address] ReferringOrthopedics11/24/22Team MemberRelationshipSpecialtyStart DateEnd Date Vitaliy Brower, DO [address] [place] [address] PCP - GeneralInternal Medicine07/12/23Team MemberRelationshipSpecialtyStart Date End Date Vitaliy Brower, DO PCP - GeneralInternal Medicine07/12/23Team MemberRelationshipSpecialtyStart Date End Date Vitaliy Brower DO [address] [place] [address] PCP - GeneralInternal Medicine01/05/23 Melinda Verduzco, TROUBLE CLERK [address] [place] [address] ReferringOrthopedics11/24/22Team MemberRelationshipSpecialtyStart DateEnd Date Vitaliy Brower, DO [address] [place] [address] PCP - GeneralInternal Medicine01/05/23 Melinda Verduzco, TROUBLE CLERK [address] [place] [address] ReferringOrthopedics11/24/22Team MemberRelationshipSpecialtyStart DateEnd Date Vitaliy Brower DO [address] [place] [address] PCP - GeneralInternal Medicine01/05/23 Melinda Verduzco APRN.TROUBLE CLERK [address] [place] [address] [place] [address] ReferringOrthopedics11/24/22 Team Status: Active Member Role Status Dates Vitaliy Brower DO Primary Care Provide r, Attending Provider Active Start: November 21, 2023 Team Status: Inactive Member Role Status Dates Vitaliy Brower DO Primary Care Provider Active Start: December 31, 2023 End: December 31, 2023Mehrdad Mcmanus , MDAttending ProviderActiveStart: December 31, 2023 End: December 31, 2023 Team Status: Active Member Role Status Dates Vitaliy Brower DO Primary Care Provider Active Start: December 31, 2023 Mehrdad Mcmanus MDAttending Provider, Other ProviderActiveStart: December 31, 2023 Team Status: Active Member Role Status Dates Vitaliy Brower DO Primary Care Provider Active Start: December 31, 2023 Imani Contreras CMAAttending ProviderActiveStart: December 31, 2023 Team Status: Inactive Member Role Status Dates Vitaliy Brower DO Primary Care Provider Active Start: January 24, 2024 End: January 24, 2024Stdanae Kowalski MDAttending ProviderActiveStart: January 24, 2024 End: January 24, 2024Team MemberRelationshipSpecialtyStart DateEnd Date Vitaliy Brower DO PCP - GeneralInternal Medicine07/12/23 Team Status: Inactive Member Role Status Dates Vitaliy Brower DO Primary Care Provider Active Start: February 12, 2024 End: February 11aimee Nichole MDAttending ProviderActiveStart: February 12, 2024 End: February 12, 2024Team MemberRelationshipSpecialtyStart DateEnd Date Vitaliy Brower DO PCP - [facility]07/12/23 Team Status: Inactive Member Role Status Dates Vitaliy Brower DO Primary Care Provider Active Start: February 18, 2024 End: February 18, 2024Sukhjinder Montesinos DOAttfatimah ProviderActiveStart: February 18, 2024 End: February 18, 2024Team MemberRelationshipSpecialtyStart DateEnd Date Vitaliy Brower DO [facility] - [facility]07/12/23Team MemberRelationshipSpecialtyStart Date End Date Vitaliy Brower DO [facility] - [facility]07/12/23Team MemberRelationshipSpecialtyStart Date End Date Vitaliy Brower DO [address] [place] [address] [facility]01/08/18 Team Status: Inactive Member Role Status Dates Vitaliy Brower DO Primary Care Provide r, Attending Provider Active Start: March 17, 2024 End: March 17, 2024Team MemberRelationshipSpecialtyStart DateEnd Date Vitaliy Brower DO [address] [place] [address] [facility]01/08/18Team MemberRelationshipSpecialtyStart DateEnd Date Vitaliy Brower DO [address] [place] [address] PCP [facility]01/08/18Team MemberRelationshipSpecialtyStart DateEnd Date Vitaliy Brower DO [address] [place] [address] PCP - Vrzbiqh22/2/18Team MemberRelationshipSpecialtyStart DateEnd Date Vitaliy BrowerDO [address] [place] [address] PCP - Qbdobbh59/2/18Team MemberRelationshipSpecialtyStart DateEnd Date InocenteVitaliy DO Jackie [address] [place] [address] PCP - GeneralInternal Medicine05/07/24Team MemberRelationshipSpecialtyStart Date End Date Inocente Vitaliy DO Jackie [address] [place] [address] PCP - GeneralInternal Medicine01/05/23 Melinda Verduzco VOCATIONAL ED INSTRUCTOR.TROUBLE CLERK [address] [place] [address] ReferringOrthopedics11/24/22Team MemberRelationshipSpecialtyStart DateEnd Date InocenteVitaliy DO Jackie [address] [place] [address] PCP - GeneralInternal Medicine01/05/23 Melinda Verduzco VOCATIONAL ED INSTRUCTOR.TROUBLE CLERK [facility] [address] [address] ReferringOrthopedics11/24/22 Team Status: Active Member Role Status Dates Vitaliy Brower DO Primary Care Provider Active Start: August 04, 2024 Chio Nichole MDAttending ProviderActiveStart: August 04, 2024 Team Status: Active Member Role Status Dates Vitaliy Brower DO Primary Care Provider Active Start: August 06, 2024 Sarai Mendez II, MDAttending ProviderActiveStart: August 06, 2024 Team Status: Active Member Role Status Dates Vitaliy Brower DO Primary Care Provider Active Start: August 11, 2024 Winnie Grande , DOEmergency ProviderActiveStart: August 11, 2024 Lydia Connelly MDAdmit Provider, Attending ProviderActiveStart: August 11, 2024 Team MemberRelationshipSpecialtyStart DateEnd Date Vtialiy Brower DO [address] [place] [address] PCP - GeneralInternal Medicine05/07/24Team MemberRelationshipSpecialtyStart Date End Date Vitaliy Brower DO [address] [place] [address] PCP - GeneralInternal Medicine01/05/23 Melinda Verduzco, VOCATIONAL ED INSTRUCTOR.TROUBLE CLERK [address] [place] [address] ReferringOrthopedics11/24/22Team MemberRelationshipSpecialtyStart DateEnd Date Vitaliy Brower DO [address] [place] [address] PCP - GeneralInternal Medicine01/05/23 Melinda Verduzco, VOCATIONAL ED INSTRUCTOR.TROUBLE CLERK [address] [place] [address] ReferringOrthopedics11/24/22Team MemberRelationshipSpecialtyStart DateEnd Date Vitaliy Brower DO [address] [place] [address] PCP - GeneralInternal Medicine01/05/23 Melinda Verduzco, VOCATIONAL ED INSTRUCTOR.TROUBLE CLERK [address] [place] [address] ReferringOrthopedics11/24/22Team MemberRelationshipSpecialtyStart DateEnd Date Vitaliy Brower DO [address] [place] [facility] [address] PCP - GeneralInternal Medicine01/05/23 Melinda Verduzco, VOCATIONAL ED INSTRUCTOR.TROUBLE CLERK [address] [place] [address] ReferringOrthopedi11/24/22 Team Status: Active Member Role Status Dates Vitaliy Brower DO Primary Care Provider Active Start: October 23, 2024 Sarai Mendez II, MDAttlifebrite community [facility] ProviderActiveStart: October 23, 2024 Team MemberRelationshipSpecialtyStart DateEnd Date Vitaliy Brower DO [address] [place] [address] PCP - GeneralInternal Medicine05/07/24Team MemberRelationshipSpecialtyStart Date End Date Vitaliy Brower DO [address] [place] [address] PCP - GeneralInternal Medicine05/07/24Team MemberRelationshipSpecialtyStart Date End Date Vitaliy Brower DO [address] [place] [address] PCP - GeneralInternal Medicine05/07/24 Team Status: Inactive Member Role Status Dates Vitaliy Brower DO Primary Care Provider Active Start: January 05, 2025 End: January 05omas Feltdread , MDAttending ProviderActiveStart: January 05, 2025 End: January 05, 2025 Team Status: Inactive Member Role Status Dates Vitaliy Brower DO Primary Care Provider Active Start: January 07, 2025 End: January 07, 2025Sarai Mendez II, MDAttending ProviderActiveStart: January 07, 2025 End: January 07, 2025 Team Status: Inactive Member Role Status Dates Vitaliy Brower DO Primary Care Provider Active Start: January 12, 2025 End: January 12enrigoberto Brower DOAttending ProviderActiveStart: January 12, 2025 End: January 12, 2025 Team Status: Active Member Role/Relationship Status Dates Vitaliy Brower DO Primary Care Provider Active Team Status: Inactive Member Role/Relationship Status Dates Vitaliy Brower DO Primary Care Provider Active Start: December 09, 2024 End: December 12, 2024Mourhernandez TraboulssYONAS dumontdmit ProviderActiveStart: December 09, 2024 End: December 12, 2024Mourelief Astonssi , MDAttending ProviderActiveStart: December 09, 2024 End: December 12, 2024 Team Status: Inactive Member Role/Relationship Status Dates Vitaliy Brower DO Primary Care Provider Active Start: December 15, 2024 End: December 15, 2024Thida Feltdread , MDAttending ProviderActiveStart: December 15, 2024 End: December 15, 2024 Team Status: Active Member Role/Relationship Status Dates Vitaliy Brower DO Primary Care Provider Active Start: December 15, 2024 Marcela Ortiz CMAAttending ProviderActiveStart: December 15, 2024 Team Status: Active Member Role/Relationship Status Dates Vitaliy Brower DO Primary Care Provider Active Start: 2024 SERGIO Araiza-Baribe ProviderActiveStart: 2024 Team Status: Active Member Role/Relationship Status Dates Vitaliy Brower DO Primary Care Provider Active Start: December 18, 2024 Marcela Ortiz CMAAttending ProviderActiveStart: December 18, 2024 Team Status: Inactive Member Role/Relationship Status Dates Vitaliy Brower DO Primary Care Provider Active Start: December 26, 2024 End: December 26enjamin Ball , DOAttending ProviderActiveStart: December 26, 2024 End: December 26, 2024 Team Status: Inactive Member Role/Relationship Status Dates Vitaliy Brower DO Primary Care Provider Active Start: December 29, 2024 End: December 29ida Feltdread , MDAttending ProviderActiveStart: December 29, 2024 End: December 29, 2024 Team Status: Active Member Role/Relationship Status Dates Vitaliy Brower DO Primary Care Provider Active Start: December 29, 2024 Jonathan Jazmyne , MDAttending ProviderActiveStart: December 29, 2024 Team Status: Inactive Member Role/Relationship Status Dates Vitaliy Brower DO Primary Care Provider Active Start: January 05, 2025 End: January 05ida Feltdread , MDAttending ProviderActiveStart: January 05, 2025 End: January 05, 2025 Team Status: Inactive Member Role/Relationship Status Dates Vitaliy Brower DO Primary Care Provider Active Start: January 07, 2025 End: January 07, 2025Robedwar Mendez II, MDAttending ProviderActiveStart: January 07, 2025 End: January 07, 2025 Team Status: Inactive Member Role/Relationship Status Dates Vitaliy Brower DO Primary Care Provider Active Start: January 07, 2025 End: January 07, 2025Robedwar Mendez II, MDAttending ProviderActiveStart: January 07, 2025 End: January 07, 2025 Team Status: Inactive Member Role/Relationship Status Dates Vitaliy Brower DO Primary Care Provider Active Start: January 12, 2025 End: January 12enrigoberto Brower DOAttending ProviderActiveStart: January 12, 2025 End: January 12, 2025 Team Status: Inactive Member Role/Relationship Status Dates Vitaliy Brower DO Primary Care Provider Active Start: January 27, 2025 End: January 27ida Feltdread , MDAttending ProviderActiveStart: January 27, 2025 End: January 27, 2025 Team Status: Inactive Member Role/Relationship Status Dates Vitaliy Brower DO Primary Care Provider Active Start: January 29, 2025 End: January 29, 2025Thida Feltdread , MDAttending ProviderActiveStart: January 29, 2025 End: January 29, 2025 Team Status: Inactive Member Role/Relationship Status Dates Vitaliy Brower DO Primary Care Provider Active Start: January 29, 2025 End: January 30, 2025Winnie Grande DOEmergency ProviderActiveStart: January 29, 2025 End: January 30, 2025Team MemberRelationshipSpecialtyStart DateEnd Date Vitaliy Brower DO [address] [place] [address] PCP - GeneralInternal Medicine05/07/24 Goals (unrecognized section and content) Goals may [...] section and content) DATE CREATED AUTHOR 08/05/2022 [facility] DATE CREATED AUTHOR AUTHOR'S ORGANIZ ATION 06/13/2023 [facility] DATE CREATED AUTHOR AUTHOR'S ORGANIZ ATION 06/29/2023 [facility] DATE CREATED AUTHOR AUTHOR'S ORGANIZ ATION 09/20/2023 [facility] DATE CREATED AUTHOR AUTHOR'S ORGANIZ ATION 08/25/2024 [facility] DATE CREATED AUTHOR AUTHOR'S ORGANIZ ATION 09/29/2024 [facility] DATE CREATED AUTHOR AUTHOR'S ORGANIZ ATION 12/23/2024 [facility] DATE CREATED AUTHOR AUTHOR'S ORGANIZ ATION 02/01/2025 [facility] DATE CREATED AUTHOR AUTHOR'S ORGANIZ ATION 02/04/2025 [facility] DATE CREATED AUTHOR AUTHOR'S ORGANIZ ATION 02/05/2025 [facility] DATE CREATED AUTHOR AUTHOR'S ORGANIZ ATION 02/16/2025 [facility] Scheduled Active and Recently Administ ered Medications (unrecognized section and content) Medication Order/ aspirin chewable tablet 324 mg (COMPLETED) 324 mg, oral, Once, On Sun01/29/24 at 1000, For 1 dose, Preprocedure * 1004 (Given - Provider: Telma Steward, GEMINI) aspirin EC tablet 81 mg 81 mg, [...] of illness. Does this patient have sepsis orconcern for sepsis (probable or documented infection plus systemic manifestations of infection)? No, Suspected Indication (Select all that apply): Surgical Prophylaxis, Indications: Surgical Prophylaxis * 1240 (New Bag - Provider: Narinder Castillo, GEMINI) * 1307 (Stopped - Provider: Louie Parra, GEMINI) clopidogrel (Plavix) tablet 75 mg 75 mg, oral, Daily, First dose on Sun01/30/24 at 0900, For 180 days, Phase II/On Unit docusate sodium (Colace) capsule 100 mg 100 mg, oral, 2 times daily, First dose on Sun01/29/24 at 2100, Phase II/On Unit, Bowel Regimen - for prevention of constipation Hold for loose stools * 2100 (Due) iohexol (OMNIPaque) 350 mg iodine/mL solution 70 mL (COMPLETED) 70 mL, intravenous, Once in imaging, Starting on Sun01/29/24 at 0922, For 1 dose * 09 (Given - Provider: Juana Jin, RT) pantoprazole (ProtoNix) EC tablet [...] Then, shake vial for 45 seconds. Do notuse if the 45 second activation cycle has [...] line with 10 mL of Normal Saline. Medication Order01/26//// acetaminophen (Tylenol) oral liquid 650 mg(Linked Group [...] needed, Starting on Sun01/29/24 at 1328, Intraprocedure * 1328 (Given - Provider: Lilly Wick RN) fentaNYL PF (Sublimaze) injection (CANCELED) As needed, Starting on Sun01/29/24 at 1240, Intraprocedure * 1240 (Given - Provider: Lilly Wick RN) * 1242 (Given - Provider: Lilly Wick RN) * 1250 (Given - Provider: Lilly Wick RN) * 1254 (Given - Provider: Lilly Wick RN) * 1309 (Given - Provider: Lilly Wick RN) heparin 1,000 unit/mL injection (CANCELED) As needed, Starting on Sun01/29/24 at 1245, Intraprocedure * 1245 (Given - Provider: Lilly Wick RN) iohexol (OMNIPaque) 300 mg iodine/mL solution (CANCELED) As needed, Starting on Sun01/29/24 at 1322, Intraprocedure * 1322 (Given - Provider: Bird Kowalski MD - Comment: Injection) lidocaine PF (Xylocaine) 10 mg/mL (1 %) injection (CANCELED) As needed, Starting on Sun01/29/24 at 1241, Intraprocedure * 1241 (Given - Provider: Lilly Wick RN - Comment: Right groin) lidocaine-epinephrine (Xylocaine W/EPI) 1 %-1:100,000 injection (CANCELED) As needed, Starting on Sun01/29/24 at 1322, Intraprocedure * 1322 (Given - Provider: Bruno Almaguer MD - Comment: Administered right groin.) lidocaine-epinephrine (Xylocaine W/EPI) 2 %-1:100,000 injection 5 mL (COMPLETED) 5 mL, subcutaneous, Once as needed, to oozing access site, Starting on Sun01/29/24 at 1458, For 1 dose, Phase II/On Unit, Inject at site of bleed * 1558 (Given - Provider: Jesus Meza RN - Comment: Tiffanie navarro) midazolam (Versed) injection (CANCELED) As needed, Starting on Sun01/29/24 at 1240, Intraprocedure * 1240 (Given - Provider: Lilly Wick RN) * 1243 (Given - Provider: Lilly Wick RN) * 1250 (Given - Provider: Lilly Wick RN) * 1254 (Given - Provider: Lilly Wick RN) * 1309 (Given - Provider: Lilly Wick RN) ondansetron [...] first line, Starting on Sun01/29/24 at 1458, PhaseII/On Unit, 1st Line. Patient should allow tablet to dissolve on tongue. Do not remove from blisterpack until just before administering. If inadequate response within 60 minutes, proceed to next-line agent for same PRN reason or contact provider if no further options ordered. protamine injection (COMPLETED) Continuous PRN, Starting on Sun01/29/24 at 1316, Intraprocedure * 1316 (New Bag - Provider: Lilly Wick RN - Comment: 50mg protamine infusing 10 minutes in a 50mlNS bag.) traMADol (Ultram) tablet 50 mg 50 mg, oral, Every 6 hours PRN, pain moderate (4-6), first line, Starting on Sun01/29/24 at 1458, Phase II/On Unit, If ordered PRN for pain, nurse is permitted to administer this medication for higher pain scores based on patient preference? Yes Order Group 1: pantoprazole (ProtoNix) EC tablet [...] first line, Starting on Sun01/29/24 at 1458, PhaseII/On Unit, 1st Line. Patient should allow tablet to dissolve on tongue. Do not remove from blisterpack until just before administering. If inadequate response [...] via IV Push, administer over 3-5 minutes. Medication Order// dofetilide (Tikosyn) capsule 125 mcg 125 mcg, oral, Every 12 hours scheduled, First dose on Sun01/30/25 at 0730, Patients on dofetilide(Tikosyn) may not receive cimetidine, dolutegravir, thiazide and thiazide-like diuretics, itraconazole, ketoconazole, megesterol, prochlorperazine, trimethoprim, verapamil, or Biktarvy (bicitegravir, emtrictiabine, and tenofovir). QTc monitoring required 2-3 hours after each dofetilide dose during initiation or upward titration. Contact provider if QTc exceeds 500 msec on any check., Prescriber certifies: baseline QTc before dofetilide initiation is < 440 msec (or < 500 msec if ventricular conduction abnormality): Yes * 0730 (Given - Provider: Lurdes Fortune RN) * 1930 (Due) HYDROmorphone (Dilaudid) injection 0.5 mg (COMPLETED) 0.5 mg, intravenous, Once, On Sun01/30/25 at 0740, For 1 dose * 0743 (Given - Provider: Lurdes Fortune RN) FOR RECORDS PERTAINING TO PATIENTS WHO ARE [...] BE BASED ON THE PRIMARY CLINICAL RECORDS. [facility] [facility]. provides no warranty or guarantee of the accuracy or completeness of information in this document.
== END 2025-02-17 14:39 | disposition home or self-care (01) ==
LOC: WC 14:38
PROVIDERS: PCP Internal Medicine; Visit Provider Physician Assistant
DX: I87.312 Chronic venous hypertension (idiopathic) with ulcer of left lower extremity (principal); L97.822 Non-pressure chronic ulcer of other part of left lower leg with fat layer exposed
CPT/HCPCS: G0463

== ENCOUNTER 2025-03-03 10:40 | Outpatient (OUT) | payer MEDICARE, OTHER, SELFPAY ==
--- OUTSIDE RECORDS SUMMARY | 2025-02-17 18:41 | XMS_ITS | Continuity of Care Document ---
Author Organization [facility] Address [address] [place] [address] Phone Care Team Providers Care Cotton Roll Packer Name Role Phone Coleman Luz DO Primary Care Provider [phone] Daisy Mora MD Admit Provider Daisy Mora MD Attending Provider Jonathan Samano MD Attending Provider [phone] Marcela Ortiz CMA Attending Provider Unavaila Casimiro Barton PA-C Attending Provider Coleman Luz DO Attending Provider [phone] Mihai Mendez II, MD Attending Provider Bony Farris DO Emergency Provider [phone] Will Zimmerman DO Emergency Provider [phone] Care Teams Patient Care Team Team Status: Active Member Role/Relationship Status Dates Coleman Luz DO Primary Care Provider Active Visit Care Team Team Status: Inactive Member Role/Relationship Status Dates Coleman Luz DO Primary Care Provider Active Start: December 09, 2024 End: December 12, 2024MoPortia Cabrera ProviderActiveStart: December 09, 2024 End: December 12, 2024Rosa Rice ProviderActiveStart: December 09, 2024 End: December 12, 2024 Visit Care Team Team Status: Inactive Member Role/Relationship Status Dates Coleman Luz DO Primary Care Provider Active Start: December 15, 2024 End: December 15ida YONAS Samanottending ProviderActiveStart: December 15, 2024 End: December 15, 2024 Visit Care Team Team Status: Active Member Role/Relationship Status Dates Coleman Luz DO Primary Care Provider Active Start: December 15, 2024 Alexis Schwarz ProviderActiveStart: December 15, 2024 Visit Care Team Team Status: Active Member Role/Relationship Status Dates Coleman Luz DO Primary Care Provider Active Start: 2024 Isabel Araiza ProviderActiveStart: 2024 Visit Care Team Team Status: Active Member Role/Relationship Status Dates Coleman Luz DO Primary Care Provider Active Start: December 18, 2024 Alexis Schwarz ProviderActiveStart: December 18, 2024 Visit Care Team Team Status: Inactive Member Role/Relationship Status Dates Coleman Luz DO Primary Care Provider Active Start: December 26, 2024 End: December 26enrigoberto Luz DOAttending ProviderActiveStart: December 26, 2024 End: December 26, 2024 Visit Care Team Team Status: Inactive Member Role/Relationship Status Dates Coleman Luz DO Primary Care Provider Active Start: December 29, 2024 End: December 29ida Samano MDAttending ProviderActiveStart: December 29, 2024 End: December 29, 2024 Visit Care Team Team Status: Active Member Role/Relationship Status Dates Coleman Luz DO Primary Care Provider Active Start: December 29, 2024 Chris Clemensending ProviderActiveStart: December 29, 2024 Visit Care Team Team Status: Inactive Member Role/Relationship Status Dates Coleman Luz DO Primary Care Provider Active Start: January 05, 2025 End: January 05, 2025Thida Samano MDAttending ProviderActiveStart: January 05, 2025 End: January 05, 2025 Visit Care Team Team Status: Inactive Member Role/Relationship Status Dates Coleman Luz DO Primary Care Provider Active Start: January 07, 2025 End: January 07, 2025Mihai Mendez II, MDAttending ProviderActiveStart: January 07, 2025 End: January 07, 2025 Visit Care Team Team Status: Inactive Member Role/Relationship Status Dates Coleman Luz DO Primary Care Provider Active Start: January 07, 2025 End: January 07, 2025Robedwar Mendez II, MDAttending ProviderActiveStart: January 07, 2025 End: January 07, 2025 Visit Care Team Team Status: Inactive Member Role/Relationship Status Dates Coleman Luz DO Primary Care Provider Active Start: January 12, 2025 End: January 12enrigoberto Luz DOAttending ProviderActiveStart: January 12, 2025 End: January 12, 2025 Visit Care Team Team Status: Inactive Member Role/Relationship Status Dates Coleman Luz DO Primary Care Provider Active Start: January 27, 2025 End: January 27, 2025Thomas Jazmyne MDAttending ProviderActiveStart: January 27, 2025 End: January 27, 2025 Visit Care Team Team Status: Inactive Member Role/Relationship Status Dates Coleman Luz DO Primary Care Provider Active Start: January 29, 2025 End: January 29, 2025Thomas Jazmyne MDAttending ProviderActiveStart: January 29, 2025 End: January 29, 2025 Visit Care Team Team Status: Inactive Member Role/Relationship Status Dates Coleman Luz DO Primary Care Provider Active Start: January 29, 2025 End: January 30, 2025Patricelyssa Farris , DOEmergency ProviderActiveStart: January 29, 2025 End: January 30, 2025 Visit Care Team Team Status: Inactive Member Role/Relationship Status Dates Coleman Luz DO Primary Care Provider Active Start: February 02, 2025 End: February 02enrigoberto Luz DOAttending ProviderActiveStart: February 02, 2025 End: February 02, 2025 Visit Care Team Team Status: Inactive Member Role/Relationship Status Dates Coleman Luz DO Primary Care Provider Active Start: February 17, 2025 End: February 17enrigoberto Luz DOAttending ProviderActiveStart: February 17, 2025 End: February 17, 2025 Patient Care Team Team Status: Inactive Member Role/Relationship Status Dates Coleman Luz DO Primary Care Provider Active Start: February 17, 2025 End: February 17, 2025Will Zimmerman DOEmergency ProviderActiveStart: February 17, 2025 End: February 17, 2025 Chief Complaint and Reason for Visit Chief Complaint Admit Date Drug Load December [...] M54.50 January 27, 2025 8:52pm MRI RESULTS [place] January 29, 2025 1 0:02am back pain January 29, 2025 5 :26pm Back Issues/ER f/u-HIGH RISK January 1:53pm Bump on L Wrist February 17, 2025 3:01pm lt hand issues-sent by February 17, 2025 4:43pm Reason for Visit Admit Date Persistent atrial fibrillation December 09, 2024 8:11am Low back pain December 15, 2024 10:51am Other chronic pain December 15, 2024 10:51am Other spondylosis with radiculopathy, [facility] December 15, 2024 10:51am Acute bronchitis due to other specified organisms December 26, 2024 9:33am Rib fracture December 26, 2024 9:33am Laceration of leg excluding thigh, with complication December 26, 2024 9:33am Cellulitis of leg without foot, left Sep tember 2024 9:33am Low back pain January 05, 2025 9:45am Other chronic pain January 05, 2025 9:45am [facility] January 05, 2025 9:45am Greater trochanteric bursitis of right h ip January 07, 2025 12:22pm History of total right hip arthroplasty January 07, 2025 12:22pm ASHD (arteriosclerotic heart disease) Oc tober 2024 2:23pm Nonhealing ulcer of left lower leg Octob er 2024 2:23pm Type 2 diabetes mellitus with hyperglyce esvin January 12, 2025 2:23pm Low back pain radiating to right leg Oct cecille 2024 2:23pm Low back pain January 29, 2025 1 0:02am Other chronic pain January 29, 2025 1 0:02am Other spondylosis with radiculopathy, [facility] January 29, 2025 10:02am ASHD (arteriosclerotic heart disease) Oc tober 2024 1:53pm Lumbosacral spondylosis with radiculopat hy February 02, 2025 1:53pm Nonhealing ulcer of left lower leg Octob er 2024 1:53pm Type 2 diabetes mellitus with hyperglyce esvin February 02, 2025 1:53pm Chronic HFrEF (heart failure with reduced ejection fraction) February 17, 2025 3:01pm Lumbosacral spondylosis with radiculopat hy February 17, 2025 3:01pm Pulsatile mass of left upper extremity N ovember 2024 3:01pm Reason for Referral Type Reason(s) Provider Provider Contact Information P christy Address Start Date EKG - we will call you with appointmentMarcus Hannah Phone: [phone] [facility] [address] Phone[facility] [phone] [facility] [id number] - [facility] Phone: [phone] [address] [address]QhrodusdMarcus Newton Phone: [phone] [facility] [address] Health Concerns Concerns Start Date A [facility] screening has identified you as FRAIL or AT RISK FOR FRAILTY. This puts you at a higher risk for infection, illness, falls, and other injuries. Here are four ways to help you reduce your risk of frailty: 1. IDENTIFY EARLY SIGNS OF FRAILTY ??? Discuss contributing factors and concerns with your doctor 2. BE ACTIVE ??? Walking and light strengthening exercises will help reduce weakness 3. EAT WELL ??? Aim for three healthy meals a day that are high in protein 4. THINK POSITIVE ??? Keep your mind active by being sociable and continuing to learn References: Stay Strong: Four Ways to Beat the Frailty Risk [email or web address]-kbe-vacwfbrdgs/gsri-oasywo-uize- nezf-kv-apft-the-fra ilty-risk Allergies, Adverse Reactions, Alerts Allergen Type Severity Reaction Last Updated Verified Status No Known Allergies Allergy Unknown February 17, 2025 5:05pmYesActive Social History Smoking Status Status Start Date End Date Date of Observa tion Never smoked tobacco (finding) February 17, 2025 9:23pm Observation Status Observation Response Date of Response Legal Sex Male (finding) Sex Assigned At BirthMaleSeptember 1960 Family History Relationship Condition Age at Onset Recorded Date/T daren mother Heart disease Unknown Calculus of kidneyUnknownDeceasedUnknownPresence of cardiac pacemakerUnknown Cerebrovascular accident (CVA)UnknownfatherHistory of coronary artery stent placementUnknownCoronary artery diseaseUnknownDeceasedUnknownbrotherDeceased UnknownExposure to Agent OrangeUnknownbrotherCerebral aneurysmUnknown Problems Active Problems Problem Diagnosis/Recorded Date Onset Date Status C omments Polymyalgia rheumatica June 28, 2023 9:43am Unknown Active Inflammatory polyarthritisMarch 2023 9:43amUnknownActiveHistory of revision of total replacement of left hip jointApril 2024 2:21pmUnknown ActivePresence of Watchman left atrial appendage closure deviceMay 2024 2:46pmUnknownActiveLumbosacral spondylosis with radiculopathyOctober 2024 5:21pmUnknownActiveGastroesophageal reflux disease with esophagitis without hemorrhageMarch 2023 9:43amUnknownActivePseudogoutMarch 2023 9:43am UnknownActiveOSA (obstructive sleep apnea)June 28, 2023 9:43amUnknownActive GENESIS (generalized anxiety disorder)June 04, 2023 12:21pmUnknownActive Greater trochanteric bursitis of right hipJuly 2024 1:57pmUnknownActive Primary osteoarthritis, right handNovember 2023 1:10pmUnknownActivePrimary osteoarthritis of right hipMarch 2023 9:43amUnknownActiveType 2 diabetes mellitus with hyperglycemiaOctober 2024 8:45pmUnknownActiveRib fracture December 25, 2024 9:00pmUnknownActiveAtrial fibrillationAugust 2023 10:10amUnknownActives/p LAAO procedure - 01/2024,Echo: LVEF 45%, CHARISSA, normal RV size/function - 08/2024,DCCV: 09/2024, oughDecember 2023 4:00pmUnknown ActiveHypercholesterolemiaAugust 2023 10:09amUnknownActiveHyperlipidemia June 20, 2021 12:05pmUnknownActiveHypothyroidAugust 2023 10:09amUnknown ActiveChronic HFrEF (heart failure with reduced ejection fraction)October 08, 2024 5:56pmUnknownActiveHistory of total right hip arthroplastyJuly 2024 12:24pmUnknownActiveAbnormal cardiovascular stress testJune 2024 4:26am UnknownActivePulsatile mass of left upper extremityNovember 2024 5:27pm UnknownActiveNonhealing ulcer of left lower legOctober 2024 8:44pmUnknown ActivePersistent atrial fibrillationJune 2024 10:34amUnknownActiveChest wall contusionJanuary 2024 2:53pmUnknownActiveMild episode of recurrent major depressive disorderMarch 2023 9:43amUnknownActiveRight knee pain January 07, 2025 12:48pmUnknownActiveCyst in handNovember 2024 10:52pm UnknownActiveMacrocytosis without anemiaMarch 2024 1:15pmUnknownActive Acute bronchitis due to other specified organismsDecember 2023 4:03pm UnknownActiveVitamin D deficiencyMarch 2024 6:49pmUnknownActiveLumbar spondylosisMarch 2023 9:43amUnknownActiveASHD (arteriosclerotic heart disease)June 27, 2023 10:31pmUnknownActivePCI/stent (prior to 2014),CABG x - 2014,Stress NM: LVEF 33%, inferolateral fixed defect - 08/2024,LHC: LVEF 35%, patent grafts - 09/2024PCI/stent (prior to 2014)HypomagnesemiaMarch 2023 9:43amUnknownActiveInactive/Resolved Problems Problem Diagnosis/Recorded Date Onset Date Status C omments MIESHA (acute kidney injury) September 30, 2024 2:32pm Unknown Resolved Acute hypotensionJune 2024 2:32pmUnknownResolvedAcute left lumbar radiculopathyOctober 2024 7:55pmUnknownResolvedUnstable anginaMay 2024 12:48pmUnknownResolvedContusionApril 2024 11:07amUnknownResolved Ischemic cardiomyopathyJune 2024 10:35amUnknownResolvedAtypical chest pain September 30, 2024 2:32pmUnknownResolvedPre-syncopeJune 2024 2:32pmUnknown ResolvedPrimary hypertensionMarch 2023 9:43amUnknownResolvedElevated lactic acid levelMay 2023 7:41pmUnknownResolvedBlurred vision, bilateral September 30, 2024 2:32pmUnknownResolvedChest painMay 2024 12:48pmUnknown Resolved Medications Medication Status Dose Units Route Directions Qty Days Refills S tart Date Stop Date End Date Reason(s) Instructions Adherence Alprazolam 0.5 mg tablet Discontinued 0.5 MG PO Daily at bedtime June 04, 2023 12:21pm December 07, 2023 4:13pmGeneralized anxiety disorder Generalized anxiety disorderEscitalopram Oxalate 10 mg tabletDiscontinued0.ROUTE .YFUIDIX842Onwgq 2023 2:06pmMarch 2023 9:36amTAKE 1 TABLET BY MOUTH EVERY DAY FOR 90 DAYSAtorvastatin 80 mg tabletDiscontinued0.ROUTE.XVUEKPC472Hmxv 2023 11:53amMarch 2024 5:52amTAKE 1 TABLET BY MOUTH ONCE EVERY EVENINGSod Picosulf-Mag Ox-Citric Ac (Clenpiq) 10 mg-3.5 gram- 12 gram/175 mL fdqbhcyrStrfgzmozepn912WIDMBwbfb chglkjd07691Goffwu 2023 11:00pmSeptember 2023 9:38amFollow instructions given by officeAlprazolam 0.5 mg tablet Discontinued0.5MGPODaily at acuovov62796Kghnhn 2023 4:12pmMarch 2024 12:58pmGeneralized anxiety disorder Generalized anxiety disorderApixaban (Eliquis) 5 mg tabletDiscontinued0.ROUTE .KVCWWMN1054Iacfemwvh 11th, 2024 8:55pmNovember 2023 11:15amTAKE 1 TABLET BY MOUTH EVERY MORNING AND BEFORE BEDTIME FOR 30 DAYSMethylprednisolone (Medrol) 4 mg nfxsigYdhyvseqlfje7OEOGIexjg pibtg76700Uzxjgpjug 12th, 2024 1:52pmNovember 2023 11:15amEscitalopram Oxalate 20 mg tabletDiscontinued0.ROUTE.NBDWDAH62 1Sept2023 4:50pmMarch 2024 4:03pmTAKE 1 TABLET BY MOUTH EVERY DAYValacyclovir 500 mg tabletDiscontinued0.ROUTE.CFDPHMI310Bhacpedus 16th, 2024 12:29pmJune 2024 6:45amTAKE 1 TABLET BY MOUTH EVERY DAYAllopurinol 100 mg tabletDiscontinued0.ROUTE.GXFZLZE821Sdgnodhyl 26th, 2024 1:35pmJune 2024 3:44pmTAKE 1 TABLET BY MOUTH EVERY DAYLevothyroxine 150 mcg tabletActive0.ROUTE .KFPHQSE788Hfyutmvb 12th, 2024 9:44amTAKE 1 TABLET BY MOUTH EVERY DAYComplies with drug therapyMetoprolol Succinate 50 mg tablet extended release 24 hr Discontinued0.ROUTE.WAQGWPY976Fztomaww 12th, 2024 9:45amSeptember 2024 7:37amTAKE 1 TABLET BY MOUTH EVERY DAYMethylprednisolone 4 mg tabletDiscontinued 4MGPOTwice lhikn05728Hrrexcdx 2023 12:00amDecember 2023 9:17am Methylprednisolone 4 mg tabletDiscontinued0.ROUTE.AINADME570Iqyrgfly 2023 9:17amMay 2024 2:23pmTAKE 1 TABLET BY MOUTH TWICE A DAY FOR 30 DAYS Amoxicillin 500 mg jnjsdpiGkursfqjafga0033SQVZTa Uuoxvmit10Yulehzgz 2023 12:00amMay 2024 1:39pmSBE prophylaxisBenzonatate 200 mg capsuleDiscontinued 200MGPOThree times hotdb14845Eomwpwne 2024 12:00amApril 2024 10:12am Escitalopram Oxalate 20 mg tabletDiscontinued0.ROUTE.VLXXGQO398Negwf 8th, 2025 4:03pmJune 2024 3:03amTAKE 1 TABLET BY MOUTH EVERY DAYAtorvastatin 80 mg tabletDiscontinued0.ROUTE.LPSOSTD099Tdyiw 2024 5:52amJune 2024 3:03amTAKE 1 TABLET BY MOUTH ONCE EVERY EVENINGMeloxicam 15 mg tablet Nuhlygwgveee08MUIGasztk51283Kau 2024 11:00pmJune 2024 10:58am Doxycycline Hyclate 100 mg tqjbcarVmsyxjsvkgyq104XMMKBndxk nnohh908Keyv 5th, 2025 11:00pmJune 2024 3:03amValacyclovir 500 mg tabletActive0.ROUTE .TSHLRRZ043Ymqe2024 6:45amTAKE 1 TABLET BY MOUTH EVERY DAYUnknown Escitalopram Oxalate 20 mg tabletActive0.ROUTE.FVBYKUR799Fnfuxbydo 3rd, 2025 7:57pmTAKE 1 TABLET BY MOUTH EVERY DAYComplies with drug therapyPantoprazole 40 mg tablet,delayed release (DR/EC)Active0.ROUTE.XYIJDOV359Xihofmyxx2024 7:36amTAKE 1 TABLET BY MOUTH EVERY DAYUnknownMetoprolol Succinate 50 mg tablet extended release 24 hrActive0.ROUTE.SAXLTMN416Zskdwmzbz2024 7:36amTAKE 1 TABLET BY MOUTH EVERY DAYUnknownAlprazolam 0.5 mg tabletActive0.5MGPODaily at xvtrqxs69855Nbosifp 9th, 2025 4:07pmGeneralized anxiety disorder Generalized anxiety disorderComplies with drug therapyDapagliflozin Propanediol (Farxiga) 5 mg euzhceZetkec4ODNSVmgrl ugrdlpl257455Uxvfwocs 9th, 2025 4:18pm Complies with drug therapyOxycodone-Acetaminophen (Percocet) 5-325 mg tablet Beaztgrgvzgu3SOMQVM8U as needed for wnwp5203Kjozzywj 2022October 2022 10:02amContusion of left shoulder Contusion of left shoulder, initial encounterMethylprednisolone (Medrol) 4 mg pxajfsBiclajkmuxji0NQVVCybpq dailyApril 2023 11:00pmSeptember 2023 1:53pmColchicine 0.6 mg capsuleDiscontinued0.6MGPO.every other dayApril 2023 11:00pmSeptember 2023 8:21amAmoxicillin-Pot Clavulanate 875-125 mg pfapjsXutapzcbqurf6WXSNEUzxla iweaf2562Zdp 2023 9:30amAugust 2023 1:23pmLevothyroxine (Synthroid) 25 mcg SkroiqUuhdbvpmujxj92LRBTXJhyvqXpllhcg 2016 11:00pmMarch 2021 12:26pmAtorvastatin (Lipitor) 80 mg Tablet Ifernakylgoj81GBQFAmbdq at bedtimeOctober 2016 11:00pmJune 2023 11:53amAspirin 81 mg Tablet,Delayed Release (Dr/Ec)Hjlwrmxvvcow50AHZIAaumd January 28, 2017 11:00pmMay 2024 2:20pmMI preventionAcetaminophen (Tylenol Arthritis Pain) 650 mg Tablet Extended MdykxijBgkkjilzhbdj4021YZDDDjklg dailyOctober 2016 11:00pmNovember 2022 9:43amAlprazolam (Xanax) 0.25 mg TabletDiscontinued0.25MGPODaily at bedtimeOctober 2016 11:00pmFebruary 2023 12:08pminsomniaLisinopril 10 mg XfktzwSqkwueifqiar06BQOHLzbvyJofhrjs 2016 11:00pm[facility] 2021 12:24pmMetoprolol Succinate (Toprol Xl) 25 mg Tablet Extended Release 24 IoNiyuzlyuwgpb32VIQZRfkwyUvlfmie 2016 11:00pm June 20, 2021 12:27pmCelecoxib 200 mg yfvobwlKqxcwapdrkxb980JGUIKgbvz morning June 19, 2021 11:00pm[facility] 2022 10:00amarthritisMetoprolol Succinate 50 mg tablet extended release 24 yyQqzegsbuuiwt32MJMAIwdpx [facility] 2021 11:00pm[facility], [place] 2023 9:45amAllopurinol 100 mg duwrxaHzbacucsqing471IT POEvery [facility] 2021 11:00pmSeptember 2023 1:35pmgout preventionValacyclovir 500 mg mujxfvCkfzofhkhjoh126MKBFZzksh [facility] 2021 11:00pmSepttsehootsooi medical center ([facility] 2023 12:30pmcold soresTriamterene-Hydrochlorothiazid 37.5-25 mg szjpckjHmjcwbiqdwly4UDRVCFxxcs [facility] 2021 11:00pm[facility] 2023 3:16pmMeniere's diseaseLevothyroxine (Synthroid) 150 mcg tablet Ygievphewyfm321ZIDWDWfqbe [facility] 2021 11:00pm[facility] 2023 9:44amIrbesartan 150 mg yfgrrjIurkoisqtfkn288WVFZKwznn [facility] 2021 11:00pm[facility] 2023 3:16pmhtnMethylprednisolone 4 mg dkomffUvvqzenomvcq6MDRH Every morningF[facility]enius [facility] 2022 11:00pmFebruary 2023 1:35pmEscitalopram Oxalate 10 mg npsedeGeonlwfxsifl35AVDRAnwsh at bedtimeF[facility]en[facility] 2022 11:00pm June 28, 2023 2:07pmpainMethylprednisolone 4 mg viahfhQcrcsfjyhtgf5MANQOwzmr August 10, 2024 11:00pmMay 2024 3:09pmValsartan 160 mg UpnsrwCjhjkcvlmaqa552 LRLCGwlwu730Rsy 2024 11:00pmJune 2024 10:58amClopidogrel 75 mg Tablet Xfxnuvjqgrcx23MHBBUvwdd80585Bui 2024 11:00pmJune 2024 3:03amApixaban (Eliquis) 5 mg JwfarqPnyyxwomhutj8HWFIXvnis vndwc27448Svc 2024 11:00pmJune 2024 3:03amMethylprednisolone 4 mg jgikszInqatrvjnbir1NIHGIhwme dailyJun2024 11:00pmJune 2024 9:10amSpironolacton-Hydrochlorothiaz 25-25 mg kwpceiQwpvpwbdezns8BXTUOBlbomOlvd 1st, 2025 11:00pmJune 2024 11:06am Aspirin 81 mg icgtpqHzyrju48WDRRBsqpoQmef 2024 11:00pmUnknownValsartan 160 mg JbqptnTflrhbaefaat49LTKHTtquaDcee 1st, 2025 11:00pmJune 2024 9:12am Atorvastatin 80 mg EkxfhmSiawxg76KWXXYpmfn slpnbaz011413Fcxr 2024 11:00pm Complies with drug therapyIsosorbide Mononitrate 30 mg Tablet Extended Release 24 JwOshdqgyglbat15IGCHEskoa ufrlnhu838853Gkis 2024 11:00pmOctober 2024 12:33pmMagnesium Oxide 400 mg (241.3 mg magnesium) YckrvdVsowgb004REBFIdaxz 226214Kjui 2024 11:00pmUnknownNitroglycerin 0.4 mg Tablet, Sublingual Discontinued0.0LXSFSNAGAHEDH7P as needed for Chest Dfqf78373Nzpj 22nd, 2025 11:00pmOctober 2024 1:00pmValsartan 40 mg QnwhtfVemepydcrxbt78KDXHIofcb86 3012June 2024 11:00pmJuly 2024 1:05pmAllopurinol 100 mg tabletActive 200MGPODailyJune 2024 11:00pmUnknownSpironolactone 25 mg YpgfkkCdgyvq43.5 WXTFUpkev001879Esgo 2024 11:00pmUnknownDapagliflozin Propanediol 10 mg JwckdzVgdydmcyzdcw84KRNXYgimi015246Dqlr 2024 11:00pmJuly 2024 1:00pm Escitalopram Oxalate 20 mg enboqcExlofxbiqxmv60IHGDLtkff at bedtimeSeptember 2024 11:00pmSeptember 2024 7:57pmApixaban (Eliquis) 5 mg tablet Lyqodxzjpupr1TIVHWmdgq dailySeptember 2024 11:00pmOctober 2024 12:32pm Dofetilide 125 mcg VivwljmZqmnsqdvyyrz183HHIZYFhadw 12 jdzsn372984Yxrtkcopn 2024 11:00pmOctober 2024 2:04pmAlbuterol Sulfate 90 mcg/actuation HFA aerosol copdzosKhqsjpwxcmfp4PPYFVGPLOJIKFYTwzom 6 hoursMarch 2023 11:00pm August 02, 2023 8:18amDiazepam 5 mg vhwcjlLzfqcixvsxhu1HYUIEkrxaVwoou 2023 11:00pmApril 2023 8:17amApixaban 5 mg muqedwMfpmlvdxvsfv2COSWIrnnv dailyMarch 2023 11:00pmSeptember 2023 8:55pmMupirocin 2 % ointment Frcdifadisoq8GUILJGMUSDVSVFnoem dailyMarch 2023 11:00pmApril 2023 8:18amSildenafil 100 mg gbrnkcUglvwdlocaon633LXWSZvzbc as needed for sexual activityMarch 2023 11:00pmMay 2024 1:41pmEscitalopram Oxalate 20 mg yosrptBjiaebecpcek30ITTGMywen02921Vwjdb 2023 9:35amSeptember 2023 4:50pmDoxycycline Hyclate 100 mg qzkiqgdWvemewxgsnxk994RSZKBonys March 17, 2024 12:00amJanuary 2024 2:47pmCodeine-Guaifenesin 10-100 mg/5 mL imeoeaJvvdqvoamtog71AADZDbmju 6 hours as needed for eflar88417Hczcvasm 2023 12:00amApril 2024 10:12amCough Cough, unspecifiedMeloxicam 15 mg xwfgjkDzjfezlgsorb45KDTUapnzb96494Ziemz 2024 11:00pmJune 2024 3:03amDiclofenac Sodium 1 % kyqSwfaawoqwnrv6IE TOPICAL.4-5 times a day as needed for knee auyi1798Iuooh 2024 11:00pmJune 2024 3:03amAlprazolam 0.5 mg tabletDiscontinued0.5MGPODaily at bedtime June 04, 2023 12:00amFebruary 2023 12:22pmCelecoxib 200 mg capsule Zslcwmnxrnfa896UZPDMltnxQtozr 20th, 2024 11:00pmMarch 2023 3:15pm Clopidogrel 75 mg tabletDiscontinuedMGPONovember 2023 12:00amApril 2024 10:12amDoxycycline Hyclate 100 mg ixtyjktMdxmfghpbeqa469PESBWtpib loymy084 May 02, 2024 2:47pmApril 2024 10:12amAlprazolam 0.5 mg tablet Discontinued0.5MGPODaily at ghratpq20947Yjpuz2024 12:57pmOctober 2024 4:08pmGeneralized anxiety disorder Generalized anxiety disorderOmeprazole 40 mg capsule,delayed release(DR/EC) Pjdtcxhxlmxz25XCKXPvavh42257Poqow 2024 11:00pmMarch 2024 3:31pm Pantoprazole 40 mg tablet,delayed release (DR/EC)Xomrbysktxmo76RUVRIkwnm45614 June 30, 2024 11:00pmSeptember 2024 7:37amAmoxicillin-Pot Clavulanate 875-125 mg fgyqsiNkeeselxdzdd1QXYINSktgx 12 tjzti18644Mrmtu 2024 11:00pm August 11, 2024 1:39pmMethylprednisolone (Medrol) 8 mg roqdtmOweigpnficwh0YJXI DailyJuly 2024 11:00pmOctober 2024 1:27pmColchicine 0.6 mg capsule Discontinued0.6MGPODailyJuly 2024 11:00pmJuly 2024 1:42pmDoxycycline Hyclate 100 mg jfxhpneLgnscswbjxax343PKGYUzxjz vgnye78361Dgzitmojd 18th, 2025 11:00pmOctober 2024 12:32pmMupirocin 2 % tygasgsjYxfwkqwvuvti6JHDZDASOYCOTX Twice wmqsr97496Strgmowqe 18th, 2025 11:00pmOctober 2024 12:33pmDofetilide 125 mcg yoczdazToksfn509BDUZYSpooo 12 ynwjh865857Kklvgez 6th, 2025 2:03pm Complies with drug therapyDoxycycline Hyclate 100 mg jpcsucmIuhzbfwprjmm996RNYN Twice mzwos10809Ypredyb2024 11:00pmOctober 2024 12:59pmSemaglutide (Ozempic) 0.25 mg or 0.5 mg (2 mg/3 mL) pen mfpxjgfcOnzxayhvsxxf9FXOEHPscxpj cacw3872Lepvasv2024 11:00pmOct2024 11:50amsubcutaneously every week; 0.25mg SC weekly x 4 then increase to 0.5mg SC weeklySemaglutide (Ozempic) 0.25 mg or 0.5 mg (2 mg/3 mL) pen xbzkqwhxQggymsccnlvy5SSLZOMsmvam ojwv5173 January 14, 2025 11:50amOctober 2024 8:00amsubcutaneously every week; 0.25mg SC weekly x 4 then increase to 0.5mg SC weeklyDapagliflozin Propanediol (Farxiga) 5 mg hkgakfEpefjxxoloyd0UDPLDcqtp ydejsjj62553Lqyndku 9th, 2025 11:00pmNov2024 4:19pmCelecoxib (Celebrex) 200 mg emkspfgMeclfl977UJCT DailyFebruary 17, 2025 12:00amUnknown Immunizations Immunization Event Date Not Given Reason Dose Number Sonographer Lot Number Reason(s) Given Vaccine Information Statement (VIS) Detail Administration Location COVID-19 Candy David (Econodata) June 04, 2020 COVID-19 Candy David (Econodata)June 15OVI Candy David (Pfizer)April 11OVID-19 mRNA, Comirnaty (Pfizer)June 25Tap, unspecifiedFebruary , 2020Influenza, trivalentOctober 2020Influenza Quadrivalent MDCK with preservativeOctober , 2017influenza, unspecified formulationOctober , 2017influenza, unspecified formulationSeptember , 2018influenza, unspecified formulationOctober 2019influenza, unspecified formulationOctober , 2020Quadrivalent InfluenzaOctober 2021 Quadrivalent InfluenzaDecember 2022 Medical Equipment Device Date Implanted Device Details Acetabular shell July 04, 2021 CARL: [id number] Issuing Agency: [facility] Device Id: [id number] Expiration Date: 2030-07-30 Lot Number: [id number] femoral head prosthesisMarch 2021UDI: ()[id number] Issuing Agency: [facility] Device Id: [id number] Expiration Date: 2031-03-09 Lot Number: [id number] hip femur prosthesis, modularMarch 2021UDI: ()[id number] Issuing Agency: [facility] Device Id: [id number] Expiration Date: 2025-12-20 Lot Number: [id number]-frlqhsdwouv polyethylene acetabular linerMarch 2021 CARL: ()[id number] Issuing Agency: [facility] Device Id: [id number] Expiration Date: 2026-05-04 Lot Number: [id number] shellNovember 2022UDI: ()[id number] Issuing Agency: [facility] Device Id: [id number] Expiration Date: 2032-04-30 Lot Number: [id number] femoral head prosthesisNovember 2022UDI: ()[id number] Issuing Agency: [facility] Device Id: [id number] Expiration Date: 2032-07-27 Lot Number: [id number] hip femur prosthesis, modularNovember 2022UDI: ()[id number] Issuing Agency: [facility] Device Id: [id number] Expiration Date: 2027-07-26 Lot Number: [id number]-iitugiieyyf polyethylene acetabular linerNovember 2022UDI: ()[id number] Issuing Agency: [facility] Device Id: [id number] Expiration Date: 2027-08-28 Lot Number: [id number] Procedures Procedure Date Performed Status US arterial duplex UE LT February 17, 2025 5:3 0pm active Buddhism of Cardiac Rhythm, Single December 09, 2024 active MR lumbar spine wo/w con January 27, 2025 8:08 pm completed XR pre/post mri xray January 27, 2025 9:13pm c ompleted XR hip RT min 2V(w/wo pelvis)* January 07, 2025 12:51pm completed XR knee RT 3V - NOT FOR ER USE January 07, 2025 12:51pm completed Relevant Diagnostic Tests and/or Laboratory Data Laboratory Results Test Collection Date/Time Result Date/Time Result Interpretation Reference Range Result Comment Performing Site Activated Partial Thromboplast Time 2024 2:18pm 2024 2:18pm 24.8 sec 22.3-36.2Prothromb Time International RatioSept2024 2:18pmSept2024 2:18pm1.06DESIRED INR:2.0-3.0 CONDITIONS NOT LISTED BELOW2.5-3.5 FOR PROSTHETIC HEART VALVE REPLACEMENT2.5-3.5 RECURRENT THROMBOSISAnion GapSept2024 2:18pmSept2024 2:18pm14.3Basophils # (Auto)2024 2:18pmSept2024 2:18pm0.0 10 3/uL0.0-0.1Urine Culture ReflexedSeptember 10th, 2025 2:20pmNOProthrombin TimeSeptember 2024 2:18pm 2024 2:18pm11.2 sec9.0-11.6Albumin/Globulin RatioSept2024 2:18pmSept2024 2:18pm1.1Basophils (%) (Auto)2024 2:18pmSept2024 2:18pm0.3 %0.2-2.0Urine Other CastsSept2024 2:20pmNONE SEEN #/LPFNONE SEENAlbuminSept2024 2:18pm 2024 2:18pm3.7 g/dL3.4-5.0Eosinophils # (Auto)2024 2:18pmSept2024 2:18pm0.0 10 3/uL0.0-0.7Urine Other Crystals 2024 2:20pmNone Seen #/HPFNone SeenAlkaline PhosphataseSept2024 2:18pmSept2024 2:18pm88 U/T40-370Mhumzunohbi (%) (Auto) 2024 2:18pmSept2024 2:18pm0.1 %Below low normal 0.9-7.0Urine BacteriaSept2024 2:20pmNONE SEEN #/HPFNONE SEENAlanine Aminotransferase (ALT/SGPT)2024 2:18pmSept2024 2:18pm58 U/P58-61TwuypyrkbdUblessjez 10th, 2025 2:18pmSept2024 2:18pm43.4 %42.0-54.0Urine BilirubinSept2024 2:20pmNEGATIVENEGATIVE Aspartate Amino Transf (AST/SGOT)2024 2:18pmSept2024 2:18pm20 U/N94-83FnfzfnzumbYmnjegbjy 2024 2:18pmSept2024 2:18pm15.2 g/dL14.0-18.0Urine Occult BloodSept 2025 2:20pmNEGATIVE NEGATIVEBUN/Creatinine RatioSept2024 2:18pmSept2024 2:18pm19.3Immature Granulocyte # (Auto)2024 2:18pmSept2024 2:18pm0.22 10 3/uLAbove high normal0.00-0.03Urine AppearanceSept2024 2:20pmCLEARCLEARBlood Urea NitrogenSept2024 2:18pm 2024 2:18pm17.0 mg/dL7.0-18.0Immature Granulocyte % (Auto) 2024 2:18pmSept2024 2:18pm1.9 %Above high normal 0.0-0.5Urine ColorSept2024 2:20pmLT. YELLOWYELLOWCalcium Level 2024 2:18pmSept2024 2:18pm9.0 mg/dL8.5-10.1 Lymphocytes # (Auto)2024 2:18pmSept2024 2:18pm1.2 10 3/uL1.2-3.8Urine Glucose (UA)2024 2:20pm>=1000 mg/dLAbnormal (applies to non-numeric results)NEGATIVEChloride LevelSept2024 2:18pmSept2024 2:98fh350 mmol/V38-451Avpckcbbhpa (%) (Auto)2024 2:18pmSept2024 2:18pm9.8 %Below low ltvtip21.5-60.0Urine KetonesSept2024 2:20pmNEGATIVE mg/dLNEGATIVECarbon Dioxide Level 2024 2:18pmSept2024 2:18pm25.9 mmol/L21.0-32.0Mean Corpuscular HemoglobinSept2024 2:18pmSept2024 2:18pm35.1 pgAbove high zpcela55.9-34.0Urine Leukocyte EsteraseSept2024 2:20pm NEGATIVENEGATIVECreatinineSeptember 2024 2:18pmSeptember 2024 2:18pm 0.88 mg/dL0.70-1.30Mean Corpuscular Hemoglobin ConcentSept2024 2:18pmSept2024 2:18pm35.0 g/dL29.9-35.2Urine MucusSept2024 2:20pmNONE SEENNONE SEENEstimated GFR ()2024 2:18pmSeptember 2024 2:18pm>60>=60 mL/min/1.73m 2Mean Corpuscular VolumeSeptember 2024 2:18pmSept2024 2:53dk684.2 fLAbove high jaqrky24.0-94.0Urine NitriteSept2024 2:20pmNEGATIVENEGATIVEEstimated GFR (Non- AmericanSeptember 2024 2:18pmSept2024 2:18pm >60>=60 mL/min/1.73m 2Monocytes # (Auto)2024 2:18pmSept2024 2:18pm0.8 10 3/uL0.3-0.8Urine pHSept2024 2:20pm7.05.0-9.0 GlobulinSept2024 2:18pmSept2024 2:18pm3.4 g/dLMonocytes (%) (Auto)2024 2:18pmSept2024 2:18pm6.7 %1.7-12.0 Urine ProteinSeptember 2024 2:20pmNEGATIVE mg/dLNEG/TRACEGlucose Level 2024 2:18pmSept2024 2:31xq353 mg/dLAbove high normal 74-106Mean Platelet VolumeSeptember 2024 2:18pmSept2024 2:18pm 10.4 fL9.5-13.5Urine RBCSept2024 2:20pmNONE SEEN #/HPF0-2Potassium LevelSept2024 2:18pmSept2024 2:18pm4.2 mmol/L3.5-5.1 Neutrophils # (Auto)2024 2:18pmSept2024 2:18pm9.6 10 3/uLAbove high normal1.4-6.5Urine Specific GravitySept2024 2:20pm 1.0101.005-1.025Sodium LevelSept2024 2:18pmSept2024 2:55cf447 mmol/U415-717Bmcochdeejd (%) (Auto)2024 2:18pm 2024 2:18pm81.2 %Above high .0-75.0Urine Squamous Epithelial CellsSept2024 2:20pmRARE #/LPFNONE/RARETotal Bilirubin 2024 2:18pmSept2024 2:18pm1.0 mg/dL0.2-1.0Platelet CountSept2024 2:18pmSept2024 2:28ir765 10 3/yO292-375 Urine UrobilinogenSept2024 2:20pm0.2 EU/dL0.2-1.0Total Protein 2024 2:18pmSept2024 2:18pm7.1 g/dL6.4-8.2Red Blood CountSept2024 2:18pmSept2024 2:18pm4.33 10 6/uLBelow low normal4.70-6.10Urine WBCSept2024 2:20pmNONE SEEN #/HPFNONE SEENRed Cell Distribution WidthSept2024 2:18pmSept2024 2:18pm 13.7 %11.0-15.0Corrected White Blood CountSept2024 2:18pmSept2024 2:18pm11.8 10 3/uLAbove high normal4.0-11.0Corrected White Blood CountOctober 2024 6:40pmOctober 2024 6:54pm7.7 10*3/uL4.1-10.5 [facility] [id number] [address] [facility] [address]Uiezdpvjm White Blood CountNovember 2024 6:53pmNovember 2024 7:08pm8.3 10*3/uL4.1-10.5[facility] [id number] [address] [facility] [address]Kabzruawvjt WBC CountOctober 2024 6:40pmOctober 2024 6:54pm7.7 10*3/uL4.1-10.5[facility] [id number] [address] [facility] [address]Ulyjyccuefl WBC CountNovember 2024 6:53pmNovember 2024 7:08pm8.3 10*3/uL4.1-10.5[facility] [id number] [address] [facility] [address]Yif Blood CountOctober 2024 6:40pmOctober 2024 6:54pm4.18 10*6/uL3.90-5.60[facility] [id number] [address] [facility] 87298Jwf Blood CountNovember 2024 6:53pmNovember 2024 7:08pm4.07 10*6/uL3.90-5.60[facility] [id number] [address] [facility] 28683EhmibwrnwoTarremh 2024 6:40pmOctober 2024 6:54pm 15.4 g/dL13.0-17.0[facility] [id number] [address] [facility] 34281SdymblnylhGghzlxdm 2024 6:53pmNovember 2024 7:08pm 14.9 g/dL13.0-17.0[facility] [id number] [address] [facility] [address]IzjxecyjafIyenfmk 2024 6:40pmOctober 2024 6:54pm 43.6 %38.8-50.0[facility] [id number] [address] [facility] 02656TgkfdxmrvbDxqgxgnj 2024 6:53pmNovember 2024 7:08pm 43.3 %38.8-50.0[facility] [id number] [address] [facility] [address]Xvrd Corpuscular VolumeOctober 2024 6:40pmOctober 2024 6:99jk074.3 fLAbove high .5-101[facility] [id number] [address] [facility] 06657Vagb Corpuscular VolumeNovember 2024 6:53pmNovember 2024 7:24mr405.5 fLAbove high gbourw54.5-101[facility] [id number] [address] [facility] [address]74Qhrl Corpuscular HemoglobinOctober 2024 6:40pmOctober 2024 6:54pm36.7 pgAbove high uzpout38.5-35.2[facility] [id number] [address] [facility] 632[address]Mafb Corpuscular HemoglobinNovember 2024 6:53pmNovember 2024 7:08pm36.6 pgAbove high rhpcai81.5-35.2[facility] [id number] [address] [facility] 50423Kkch Corpuscular Hemoglobin ConcentOctober 2024 6:40pm January 29, 2025 6:54pm35.2 g/dL32.5-35.6[facility] [id number] [address] [facility] 98722Vqie Corpuscular Hemoglobin ConcentNovember 2024 6:53pm February 17, 2025 7:08pm34.4 g/dL32.5-35.6[facility] [id number] [address] [facility] 83381Ijj Cell Distribution WidthOctober 2024 6:40pmOctober 2024 6:54pm15.4 %Above high jtslvo21.0-14.8[facility] [id number] [address] [facility] [address]7947Vai Cell Distribution WidthNovember 2024 6:53pmNovember 2024 7:08pm15.3 %Above high .0-14.8[facility] [id number] [address] [facility] [address]Ovkayufp CountOctober 2024 6:40pmOctober 2024 6:86we129 10*3/uLBelow low -712DqmehkxvvUniversity [facility]als [facility] [id number] [address] [facility] 608[address]Lbnjimqr CountNovember 2024 6:53pmNovember 2024 7:20on279 10*3/sP648-027EloqcczdhUniversity [facility]als [facility] [id number] [address] [facility] 53205Xndj Platelet VolumeOctober 2024 6:40pmOctober 2024 6:54pm8.9 fL6.6-10.1[facility] [id number] [address] [facility] 19077Xjtm Platelet VolumeNovember 2024 6:53pmNovember 2024 7:08pm8.8 fL6.6-10.1[facility] [id number] [address] [facility] [address]Aoryfszp Distribution WidthOctober 2024 6:40pmOctober 2024 6:54pm18.81 %0.00-20.00[facility] [id number] [address] [facility] 70623Iivciauz Distribution WidthNovember 2024 6:53pmNovember 2024 7:08pm18.76 %0.00-20.00[facility] [id number] [address] [facility] [address]Gyxuhhutyot (%) (Auto)January 29, 2025 6:40pmOctober 2024 6:54pm78.3 %.[facility] [id number] [address] [facility] 21582Epsvqazzulx (%) (Auto)February 17, 2025 6:53pmNovember 2024 7:08pm76.3 %.[facility] [id number] [address] [facility] [address]32[address]Craepjebref (%) (Auto)January 29, 2025 6:40pmOctober 2024 6:54pm14.4 %.[facility] [id number] [address] [facility] 46276Jxyjausqbdo (%) (Auto)February 17, 2025 6:53pmNovember 2024 7:08pm14.4 %.[facility] [id number] [address] [facility] 26061Ubpagoixs (%) (Auto)January 29, 2025 6:40pmOctober 2024 6:54pm6.3 %.[facility] [id number] [address] [facility] [address]Dbyjgspxm (%) (Auto)February 17, 2025 6:53pmNovember 2024 7:08pm7.5 %.[facility] [id number] [address] [facility] [address]9620Tieuzlvphjc (%) (Auto)January 29, 2025 6:40pmOctober 2024 6:54pm0.3 %.[facility] [id number] [address] [facility] 59686Giwkrbggobj (%) (Auto)February 17, 2025 6:53pmNovember 2024 7:08pm0.5 %.[facility] [id number] [address] [facility] 56551Xuxwgffch (%) (Auto)January 29, 2025 6:40pmOctober 2024 6:54pm0.7 %.[facility] [id number] [address] [facility] 22367Yzxnwovwu (%) (Auto)February 17, 2025 6:53pmNovember 2024 7:08pm1.3 %.[facility] [id number] [address] [facility] 32266Rdmmahzpr RBC Relative Count (auto)January 29, 2025 6:40pm January 29, 2025 6:54pm0.1 /100{WBC}0-0.5[facility] [id number] [address] [facility] 415[address]Fedraqben RBC Relative Count (auto)February 17, 2025 6:53pm February 17, 2025 7:08pm0.1 /100{WBC}0-0.5[facility] [id number] [address] [facility] [address]Skjcolicuaf # (Auto)January 29, 2025 6:40pmOctober 2024 6:54pm6.0 10*3/uL1.8-7.7[facility] [id number] [address] [facility] 94583Hztddvvaugm # (Auto)February 17, 2025 6:53pmNovember 2024 7:08pm6.4 10*3/uL1.8-7.7[facility] [id number] [address] [facility] 19751Etcxlpqfnua # (Auto)January 29, 2025 6:40pmOctober 2024 6:54pm1.1 10*3/uL1.00-4.8[facility] [id number] [address] [facility] 39846Eskdaktemkz # (Auto)February 17, 2025 6:53pmNovember 2024 7:08pm1.2 10*3/uL1.00-4.8[facility] [id number] [address] [facility] 76079Vhtxjukmn # (Auto)January 29, 2025 6:40pmOctober 2024 6:54pm0.5 10*3/uL0.0-0.8[facility] [id number] [address] [facility] 46003Yihramcct # (Auto)February 17, 2025 6:53pmNovember 2024 7:08pm0.6 10*3/uL0.0-0.8[facility] [id number] [address] [facility] 06807Phabrnqmhwq # (Auto)January 29, 2025 6:40pmOctober 2024 6:54pm0.0 10*3/uL0.0-0.45[facility] [id number] [address] [facility] 50867Dljwtujcxbb # (Auto)February 17, 2025 6:53pmNovember 2024 7:08pm0.0 10*3/uL0.0-0.45[facility] [id number] [address] [facility] 88276Gifhjmxez # (Auto)January 29, 2025 6:40pmOctober 2024 6:54pm0.1 10*3/uL0.0-0.2[facility] [id number] [address] [facility] [address]Jgntrunxv # (Auto)February 17, 2025 6:53pmNovember 2024 7:08pm0.1 10*3/uL0.0-0.2[facility] [id number] [address] [place] [address] 77363Wkgkrtbjglx TimeSeptember 2024 3:54amSept2024 5:15am14.6 sAbove high normal9.0-12.9A hematocrit value greater than 55% may lead to inaccurate results in coagulation testing. Patientshaving hematocrit values >55% require a special collection tube for coagulation studies. Please c ontact the laboratory at [phone] for redraw instructions.[facility] [id number] [address] [facility] 240[address]Vkooocnwgqw TimeNov2024 6:53pmNov2024 7:33pm11.4 s9.0-12.9A hematocrit value greater than 55% may lead to inaccurate results in coagulation testing. Patientshaving hematocrit values >55% require a special collection tube for coagulation studies. Please contact the laboratory at [phone] for redraw instructions.[facility] [id number] [address] [facility] [address]Rmzbqntor Time International RatioSeptember 2024 3:54am December 12, 2024 5:15am1.3INR Therapeutic Range A) Pre- and Peroperative OAT started two weeks before surgery. NOT HIP SURGERY: 1.5 - 2.5 HIP SURGERY: 2 - 3B) Primary and secondary prevention of venous THROMBOSIS: 2 - 3C) Active venous thrombosis, pulmonary embolismand prevention of recurrent venous thrombosis: 2 - 3D) Prevention of arterial thromboembolismincluding patients with mechanical heart valves: 3 - 4.5[facility] [id number] [address] [facility] 92581Rjdyfoton Time International RatioNovember 2024 6:53pm February 17, 2025 7:33pm1.0INR Therapeutic Range A) Pre- and Peroperative OAT started two weeks before surgery. NOT HIP SURGERY: 1.5 - 2.5 HIP SURGERY: 2 - 3B) Primary and secondary prevention of venous THROMBOSIS: 2 - 3C) Active venous thrombosis, pulmonary embolismand prevention of recurrent venous thrombosis: 2 - 3D) Prevention of arterial thromboembolismincluding patients with mechanical heart valves: 3 - 4.5[facility] [id number] [address] [facility] 219[address]Vuqswwnow Partial Thromboplast TimeNovember 2024 6:53pm February 17, 2025 7:33pm25.5 s25.1-36.5A hematocrit value greater than 55% may lead to inaccurate results in coagulation testing. Patientshaving hematocrit values >55% require a special collection tube for coagulation studies. Please c ontact the laboratory at [phone] for redraw instructions.[facility] [id number] [address] [facility] 67878Uphjc ColorOctober 2024 4:43pmOctober 2024 5:07pm Light-yellowYellowUniversity Hospitals Health System [facility]tr [id number] [address] [facility] 35125Zgtaq AppearanceOctober 2024 4:43pmOctober 2024 5:07pmClearClearUniversity Hospitals Health System [facility]tr [id number] [address] [facility] 24442Texwc Specific GravityOctober 2024 4:43pmOctober 2024 5:07pm1.0261.001-1.030[facility] [id number] [address] [facility] 042[address]Mofkh pHOctober 2024 4:43pmOctober 2024 5:07pm5.0 5.0-9.0[facility] [id number] [address] [facility] 13257Qbxep Leukocyte EsteraseOctober 2024 4:43pmOctober 2024 5:07pmNegativeNegativeUniversity Hospitals Health [facility] [id number] [address] [facility] 86005Vlcfa NitriteOctober 2024 4:43pmOctober 2024 5:07pm NegativeNegativeUniversity Hospitals Health [facility] [id number] [address] [facility] 544[address]Xhwqj ProteinOctober 2024 4:43pmOctober 2024 5:07pm Negative mg/dLNegativeUniversity [facility]als [facility] [id number] [address] [facility] 96479Ztoka Glucose (UA)January 29, 2025 4:43pmOctober 2024 5:07pm>=1000 mg/dLAbove high normalNormalUniversity Hospitals Health [facility] [id number] [address] [facility] 48194Qvqfk KetonesOctober 2024 4:43pmOctober 2024 5:07pm 1+Above high normalNegativeUniversity Hospitals [facility] [id number] [address] [facility] 75203Makgd UrobilinogenOctober 2024 4:43pmOctober 2024 5:07pmNormal mg/dLNormalUniversity Hospitals Health [facility] [id number] [address] [facility] 412[address]Psiar BilirubinOctober 2024 4:43pmOctober 2024 5:07pmNegativeNegativeUniversity Hospitals [facility] [id number] [address] [facility] 82161Dalmd Occult BloodOctober 2024 4:43pmOctober 2024 5:07pmNegativeNegativeUniversity Hospitals [facility] [id number] [address] [facility] 88043Nawcqaj LevelSeptember 2024 8:06amSeptember 2024 8:26nn852 mg/dLAbove high -121BOP recommended reference rangeRandom Glucose Reference Range is dependent on time and content of last meal. Glucose of more than 200 mg/dL in a nonstressed, ambulatory subject supports the diagnosisof Diabetes Mellitus.[facility] [id number] [address] [facility] 98480Qagzdii LevelOctober 2024 6:40pmOctober 2024 7:21pm 145 mg/dLAbove high olktas30-105ZSM recommended reference rangeRandom Glucose Reference Range is dependent on time and content of last meal. Glucose of more than 200 mg/dL in a nonstressed, ambulatory subject supports the diagnosisof Diabetes Mellitus.[facility] [id number] [address] [facility] [address]Oacuvan LevelNovember 2024 6:53pmNovember 2024 7:00pg252 mg/dLAbove high -664MBL recommended reference rangeRandom Glucose Reference Range is dependent on time and content of last meal. Glucose of more than 200 mg/dL in a nonstressed, ambulatory subject supports the diagnosisof Diabetes Mellitus.[facility] [id number] [address] [facility] 22276Zhsal Urea NitrogenSeptember 2024 8:06amSeptember 2024 8:36am15 mg/dL-[facility] [id number] [address] [facility] 87508Hwioj Urea NitrogenOctober 2024 6:40pmOctober 2024 7:21pm19 mg/dL-[facility] [id number] [address] [place] [address]79[address]Owhkn Urea NitrogenNovember 2024 6:53pmNovember 2024 7:25pm7 mg/dL-[facility] [id number] [address] [facility] 68048UblpzwmfytZaseldrlf 2024 8:06amSeptember 2024 8:36am 0.84 mg/dL0.70-1.30[facility] [id number] [address] [facility] 88795RkvgyqeoarRhmctri 2024 6:40pmOctober 2024 7:21pm 0.81 mg/dL0.70-1.30[facility] [id number] [address] [facility] 145[address]MjmcndyqzxFjdrbblu 11th, 2025 6:53pmNovember 2024 7:25pm 0.78 mg/dL0.70-1.30[facility] [id number] [address] [facility] 35899Uxdlyyvht GFR (CKD-EPI)December 09, 2024 8:06amSept2024 8:36am> 60.0 mL/MinUniversity Hospitals Health System [facility]tr [id number] [address] [facility] 28175Wlmksemdo GFR (CKD-EPI)January 29, 2025 6:40pmOctober 2024 7:21pm> 60.0 mL/MinUniversity Hospitals Health System [facility]tr [id number] [address] [facility] 74302Xagjzurmz GFR (CKD-EPI)February 17, 2025 6:53pmNovember 2024 7:25pm> 60.0 mL/MinUniversity Hospitals Health System [facility]tr [id number] [address] [facility] 42333Hkbjcy LevelSeptember 2024 3:31amSeptember 2024 4:80lw789 mmol/H156-193SrwxglnziUniversity Hospitals Health System [facility] [id number] [address] [facility] 669[address]Ukzqet LevelOctober 2024 6:40pmOctober 2024 7:21pm 136 mmol/E456-666RztcxzyjpUniversity Hospitals Health [facility] [id number] [address] [facility] 737[address]Sdleic LevelNovember 2024 6:53pmNovember 2024 7:17yi232 mmol/R184-265MtcvmpjydUniversity Hospitals Health System [facility] [id number] [address] [facility] 16800Fgboaoypt LevelSeptember 2024 3:31amSeptember 2024 4:04am4.2 mmol/L3.5-5.1FR[facility] [id number] [address] [facility] 44505Xbhktdnnj LevelOctober 2024 6:40pmOctober 23rd, 2025 7:21pm3.9 mmol/L3.5-5.1Hemolysis is present at a level that could interfere with the result.Contact lab if redraw is requiredUniversity Hospitals Health [facility] [id number] [address] [facility] 19033Eoycxpeqd LevelNovember 2024 6:53pmNovember 2024 7:25pm3.6 mmol/L3.5-5.1FRiver[facility] [id number] [address] [facility] 15693Duscpxmr LevelSeptember 2024 3:31amSeptember 2024 4:65wf246 mmol/X85-098IaqmeofchUniversity Hospitals Health System [facility] [id number] [address] [facility] 28403Nbmpsgcs LevelOctober 2024 6:40pmOctober 2024 7:89xn741 mmol/F83-213LokcqdqeiUniversity Hospitals Health System [facility] [id number] [address] [facility] 380[address]Vvzjjrrq LevelNovember 2024 6:53pmNovember 2024 7:50au346 mmol/Y22-310DkcflyfynUniversity Hospitals Health [facility] [id number] [address] [facility] 80877Uzvfox Dioxide LevelSeptember 2024 3:31amSeptember 2024 4:04am29.5 mmol/L21.0-31.0[facility] [id number] [address] [facility] 95176Gtifem Dioxide LevelOctober 2024 6:40pmOctober 2024 7:21pm24.9 mmol/L21.0-31.0[facility] [id number] [address] [facility] [address]Oxtlbr Dioxide LevelNovember 2024 6:53pmNovember 2024 7:25pm26.9 mmol/L21.0-31.0[facility] [id number] [address] [facility] [address]Uurkq GapSeptember 2024 3:31amSeptember 2024 4:04am 8.7 mEq/L6.0-15.0[facility] [id number] [address] [facility] [address]Riyqj GapOctober 2024 6:40pmOctober 2024 7:21pm11.0 mEq/L6.0-15.0[facility] [id number] [address] [facility] [address]Yihwe GapNovember 2024 6:53pmNovember 2024 7:25pm 11.7 mEq/L6.0-15.0[facility] [id number] [address] [facility] [address]Phkwlbw LevelSeptember 2024 8:06amSeptember 2024 8:36am8.7 mg/dL8.6-10.3[facility] [id number] [address] [facility] [address]Lgroiub LevelOctober 2024 6:40pmOctober 2024 7:21pm 9.5 mg/dL8.6-10.3[facility] [id number] [address] [facility] [address]Hyapibg LevelNovember 2024 6:53pmNovember 2024 7:25pm9.6 mg/dL8.6-10.3[facility] [id number] [address] [facility] [address]Pores ProteinNovember 2024 6:53pmNovember 2024 7:25pm6.4 g/dL6.4-8.9[facility] [id number] [address] [facility] [address]MvcshmuBefbewny 2024 6:53pmNovember 2024 7:25pm4.2 g/dL3.5-5.7FRiver[facility] [id number] [address] [facility] [address]XghfnwbdJsglubuk 2024 6:53pmNovember 2024 7:25pm2.2 g/dLUniversity [facility]als [facility] [id number] [address] [place] [address]Lajuqhy/Globulin RatioNovember 2024 6:53pmNovember 2024 7:25pm1.9[facility] [id number] [address] [facility] [address]Jyvve BilirubinNovember 2024 6:53pmNovember 2024 7:25pm1.2 mg/dLAbove high normal0.3-1.0[facility] [id number] [address] [facility] [address]Vvwwrnaxv Amino Transf (AST/SGOT)February 17, 2025 6:53pm February 17, 2025 7:25pm27 U/L37-41CxjzqwgvnUniversity Hospitals Health [facility] [id number] [address] [facility] 07808Fwqwdqo Aminotransferase (ALT/SGPT)February 17, 2025 6:53pm February 17, 2025 7:25pm29 U/L7-52[facility] [id number] [address] [facility] [address]Xlonvmpj PhosphataseNovember 2024 6:53pmNovember 2024 7:25pm80 U/D89-398JzwpdayccUniversity Hospitals Health System [facility] [id number] [address] [facility] [address]Iwryfqbc Creatinine Clearance (ChemSeptember 2024 8:06am December 09, 2024 8:36amN/[facility] [id number] [address] [facility] [address]Kqnjarar Creatinine Clearance (ChemOctober 2024 6:40pm January 29, 2025 7:99ls846.71[facility] [id number] [address] [facility] [address]Cbkgsoah Creatinine Clearance (ChemNovember 2024 6:53pm February 17, 2025 7:25pm91.15[facility] [id number] [address] [facility] [address] Diagnostic Imaging Reports Author Matt Ferrell [facility] HospitalAuthoredOctober 2024 4:26pmReportDictated Date/TimeDictated ByStatusRadiology ReportOctober 2024 4:26pmJaimie HarveyC[facility] Clinic [facility] [address] [place] [address] XRay Report Signed Patient: César Marsh MR#: [id number] : 1960 Acct:[id number] Age/Sex: 64 / M ADM Date: 5 Loc: [facility] [place] Room: Type: REG CLI Attending Dr: Mihai Mendez II, MD Copies to: Mihai Mendez MD~ Ordering Provider: Mihai Mendez MD Date of Service: 01/07/25 XR/XR hip RT min 2V(w/wo pelvis)*: Z96.641 - ([id number]) XR/XR knee RT 3V - NOT FOR [...] Ferrell M.D. 01/07/2025 4:29 PM Dictation Location: [place] [address] Transcribed By: [facility] 01/07/251628 Dictated By: Matt Ferrell DO 01/07/251625 Signed By: <Electronically signed by Matt Ferrell DO in OV> 01/07/251628 Author Ap Paul [facility] HospitalAuthoredOctgeorgetown community hospital 2024 10:35pmReport Dictated Date/TimeDictated ByStatusRadiology ReportOctober 2024 10:35pm [facility] [place] [address] MRI Report Signed Patient: César Marsh MR#: [id number] : 1960 Acct:[id number] Age/Sex: 64 / M ADM Date: 5 Loc: Room: Type: REG CLI Attending Dr: Jonathan Samano MD Copies to: Jonathan Samano MD~ Ordering Provider: Jonathan Samano MD Date of Service: 01/27/25 MR/MR lumbar spine wo/w con: M47.26 ([id number]) XR/XR pre/post mri xray: M47.26,G89.29, M54.50 MRI lumbar spine performed without and with contrast/2 views of the lumbar spine INDICATION: Low back pain, spondylolysis with radiculopathy lumbar region severe right lower back and buttock pain recent epidural 12/15/2020 FINDINGS: 2 VIEWS OF THE LUMBAR SPINE Dextrocurvature. L4 and L5 decompressive laminectomy. Multilevel disc space na rrowing and endplate osteophytosis. No lumbar compression fracture. [...] narrowing. Clumping suspicious for arachnoiditis. No definite rim- enhancing epidural collections or subdural collections. T12-L1: Broad-based [...] Paul M.D. 01/27/2025 11:01 PM Dictation Location: [place] [address] Transcribed By: [facility] 01/27/252300 Dictated By: Ap Paul MD 01/27/252234 Signed By: <Electronically signed by Ap Paul MD in OV> 01/27/252300 Vital Signs Vital Reading Result Reference Range Collection Date/Time Height 70.5 [in_i] December 11, 2024 11:74vtIjyqok42.00 kgSept2024 5:00amBody Pwizrghmvbm82.9 [degF]97.6-99.0Sept2024 3:00amHeart Rate77 /got34-139 December 12, 2024 7:00amRespiratory rate16 /qpc59-43Mxpvxmczw 5th, 2025 7:00am Oxygen saturation by Pulse gglrhlja75 %95-100Sept2024 7:00amBP Yvqzgzcm708 mm[Hg]100-140Sept2024 7:00amBP Xmxjatkil43 mm[Hg]60-100 December 12, 2024 7:57dcIfipzb55.5 [in_i]December 26, 2024 8:43amWeight 100.41 kgSeptember 2024 8:43amHeart Rate76 /jyv61-260Ydhqipezt 19th, 2025 8:43amRespiratory rate12 /doz48-70Xpuigfqqw 2024 8:43amBP Sexcypaz647 mm[Hg]100-140September 2024 8:43amBP Dhpscwjlb72 mm[Hg]60-100September 2024 8:43amBMI (Body Mass Index)31.3 kg/r4Awxcbfiap2024 8:43am Oqelyt22.5 [in_i]January 07, 2025 12:86tbLkkexd869.41 kgOctober 2024 12:30pmHeart Rate61 /icf22-511Hxlsyqd 2024 12:30pmBP Bbnmuoqg363 mm[Hg] 100-140October 2024 12:30pmBP Uldpohmmk76 mm[Hg]60-100October 2024 12:30pmBMI (Body Mass Index)31.3 kg/h1Btwgamo2024 12:08jiTdjclb21.5 [in_i] January 12, 2025 1:52qhEiziiy49.74 kgOctober 2024 1:31pmHeart Rate80 /min 60-100October 2024 1:31pmRespiratory rate12 /pap95-90Lujcmlw 2024 1:31pmBP Frmfbxya853 mm[Hg]100-140October 2024 1:31pmBP Cpghqkuzb09 mm[Hg] 60-100October 2024 1:31pmBMI (Body Mass Index)30.4 kg/i5Skvxazi 2024 1:37xeWokpmb24 [in_i]January 27, 2025 8:63klLjnygt38.06 kgOctober 2024 8:55ejOalbdn21 [in_i]January 29, 2025 4:84xaCfofwg82.95 kgOctober 2024 4:41pmBody Fljjfnvmklv46.2 [degF]97.6-99.0Octgeorgetown community hospital 2024 4:41pmHeart Rate77 /kkm66-030Uiyzvir 2024 9:39pmRespiratory rate20 /rly29-16Cbwuqou 2024 9:39pmOxygen saturation by Pulse flusuehw57 %95-100Octgeorgetown community hospital 2024 9:39pmBP Pcknmgvd356 mm[Hg]100-140Oct2024 9:39pmBP Drsprfmld64 mm[Hg] 60-100Octgeorgetown community hospital 2024 9:23upJtxuun74 [in_i]February 02, 2025 12:55pmWeight 98.14 kgF[facility] 2024 12:55pmBody Tksshqvpckl76.6 [degF]97.6-99.0[facility] 2024 12:55pmHeart Rate85 /qez33-256Bvxlbeb 2024 12:55pmOxygen saturation by Pulse anghedil54 %95-100[facility] 2024 12:55pmBP Elgsmjyu205 mm[Hg]100-140Octge[facility] community hospital 2024 12:55pmBP Euutrtmxt75 mm[Hg]60-100Octgeorgetown community hospital 2024 12:55pmBMI (Body Mass Index)31.0 kg/l8Ryjbzfl 2024 12:83xdUlckts08 [in_i]February 17, 2025 3:31btSokzke396.24 kgL[facility] 2024 3:30pmHeart Rate84 /ylr94-288Dwjzpenq 2024 3:30pmRespiratory rate14 /bmh14-36Hhbevhvo 2024 3:30pmOxygen saturation by Pulse ztmwvide85 %95-100[facility] 2024 3:30pmBP Sbcjqawx246 mm[Hg]100-140[facility] 2024 3:30pmBP Bbsdrslqp20 mm[Hg]60-100Novtsehootso[facility] 2024 3:30pmBMI (Body Mass Index)31.7 kg/j2Nqppiylt 2024 3:40lgJtqmhc7.10 [in_i]February 17, 2025 5:83bnKukmju000.00 kg February 17, 2025 5:18pmBody Zmyafgbbedr20.0 [degF]97.6-99.0November 2024 5:12pmHeart Rate72 /odz39-298DmtyiuyrFebruary 17, 2025 11:00pmRespiratory rate20 /xfz78-16Jqrkxvkk 11th, 2025 11:00pmOxygen saturation by Pulse tuicllxj50 % 95-100Nov2024 11:00pmBP Yeseuhyq937 mm[Hg]100-140Nov2024 11:00pmBP Ltkeuyelv79 mm[Hg]60-100Nov2024 11:00pm Advance Directives Advance Directive Response Recorded Date/ Time Advance Directives No January 25, 2017 1:08pm Insurance Providers Guarantor César Marsh Address [address] [place] [address]Lhjbjfu Info.Home Phone: Coverage Status Update:2025 Payer Group Member ID Coverage Type Subscriber Relationship to Subscriber Effective Date Expiration Date MMO Id: [id number] K Mccowan Id: [id number] [address] [place] [address] Home Phone: Email: [email or web address] MobileL[facility]/ [id number] A Mccowan Id: [id number] [address] [place] [address] Home Phone: [facility] [id number] K Mccowan Id: [id number] [address] [place] [address] Home Phone: Email: [email or web address] Encounter Location(s) Arrival/Admit Date Discharge/Departure Date Discharge/Departure Disposition Provider(s) Discharged Inpatient -[address] [place] [address] Critical [facility] Department December 09, 2024 8:11am December 12, 2024 11:02am Discharged to home care or self care (routine discharge) Daisy Mora MD Departed Physician/ Provider Office Visit -[facility] December 15, 2024 10:51am December 15, 2024 11:27am Discharged to home care or self care (routine discharge) Jimi Clemens MD Non-patient / Non-visit -[facility] 2024 1:22pm Pearl Schwarz-patient / Gbo-ktgvs-[facility] 2024 3:18pmHarmony Leung-CNon-patient / Njx-mxpwh-XBTHenry [facility] Hospitale[facility] 2024 10:35amCatroseanne Ortiz CMADeparted Physician/Provider [facility] 9:33amSeptember 2024 9:59amDischarged to home care or self care (routine discharge)LOULOU Hannaheparted Physician/Provider Office Visit-[facility] 2024 11:55amSeptember 2024 11:59pm Discharged to home care or self care (routine discharge)Jimi Clemens- patient / Sct-bcuak-[place] [facility] 2024 1:45pmThJimi Bhardwajeparted Physician/Provider Office Visit-Count Includes [facility] 9:45amSeptember 2024 10:19amDischarged to home care or self care (routine discharge)Jimi Clemens MDDeparted Physician/Provider Office Visit-Count Includes [facility] OrthopedicsOctober 2024 12:22pmOctober 2024 2:15pmDischarged to home care or self care (routine discharge)Harmony Pierce MDDeparted Clinical-XRay [place] [facility] 2024 1:51pmOctober 2024 1:52pmDischarged to home care or self care (routine discharge)Harmony Pierce MDDeparted Physician/Provider [facility] 2:23pmOctober 2024 3:02pm Discharged to home care or self care (routine discharge)Coleman Luz DO Departed Clinical-MRI Main [place] 8:52pmOctober 2024 8:53pmDischarged to home care or self care (routine discharge)Jimi Clemens MDDeparted Physician/Provider [facility] 2024 10:02amOctober 2024 11:08amDischarged to home care or self care (routine discharge)Jimi Clemens MDDeparted Emergency-Emergency RoomOctgeorgetown community hospital 2024 5:26pmOctober 2024 12:10am Discharged[facility] inpatientDeparted Physician/Provider Office Visit-[facility] 2024 1:53pmOctgeorgetown community hospital 2024 2:22pmDischarged to home care or self care (routine discharge)Amanuel Hannahed Physician/Provider Office Visit-[facility] 2024 3:01pmNovtsehootsooi medical center ([facility] 2024 4:00pmDischarged to home care or self care (routine discharge)Amanuel Hannahed Emergency-[facility] 2024 4:43pmNovtsehootsooi medical center ([facility] 2024 11:08pmDischarged to home care or self care (routine discharge) Recent Diagnosis Onset Date Admit Date Persistent atrial fibrillation Unknown S midread 2024 8:11am Low back pain Unknown December 15, 025 10:51am Other chronic pain Unknown December [...] hip arthroplasty Unknown January 07, 2025 12:22pm ASHD (arteriosclerotic heart disease) Unknown January 12, 2025 2:23pm Nonhealing ulcer of left lower leg Unknown January 12, 2025 2:23pm Type 2 diabetes mellitus with hyperglycemia Unkn own January 12, 2025 2:23pm Low back pain radiating to right leg Unknown January 12, 2025 2:23pm Low back pain Unknown January 29 10:02am Other chronic pain Unknown January 29, 2025 10:02am Other spondylosis with radic ulopathy, lumbar region Unknown January 29, 2025 10:02am ASHD (arteriosclerotic heart disease) Unknown February 02, 2025 1:53pm Lumbosacral spondylosis with radiculopathy Unkno wn February 02, 2025 1:53pm Nonhealing ulcer of left lower leg Unknown February 02, 2025 1:53pm Type 2 diabetes mellitus with hyperglycemia Unkn own February 02, 2025 1:53pm Chronic HFrEF (heart failure with reduced ejection fraction) Unknown February 17, 2025 3:01pm Lumbosacral spondylosis with radiculopathy Unkno wn February 17, 2025 3:01pm Pulsatile mass of left upper extremity Unknown February 17, 2025 3:01pm Functional Status Observation Response Date Recorded Dressing Patient at Baseline December 10:02am Eating Patient at Baseline December 10:02am Bathing Patient at Baseline December 10:02am Disability Status Patient at Baseline December 12, 2024 10:02am Mental Status Observation Response Date Recorded Cognitive Status Patient at Baseline December 122024 10:02am Cognitive/Mental Status Assessments Assessments Diagnosis Onset Date Resolution Status Admit Date Persistent atrial fibrillation acuteSept2024 8:11amLow back paindeletedSeptember 2024 10:51am Other chronic paindeletedSeptember 2024 10:51amOther spondylosis with radiculopathy, lumbar regiondeletedSeptember 2024 10:51amAcute bronchitis due to other specified organismsacuteSeptember 2024 9:33amRib fracture acuteSeptember 2024 9:33amLaceration of leg excluding thigh, with complicationnoneactiveSeptember 2024 9:33amCellulitis of leg without foot, leftnoneactiveSeptember 2024 9:33amLow back paindeletedSeptember 2024 9:45amOther chronic paindeletedSeptember 2024 9:45amOther spondylosis with radiculopathy, lumbar regiondeletedSeptember 2024 9:45amGreater trochanteric bursitis of right hipacuteOctober 2024 12:22pmHistory of total right hip arthroplastyacuteOctober 2024 12:22pmASHD (arteriosclerotic heart disease)acuteOctober 2024 2:23pmNonhealing ulcer of left lower leg acuteOctober 2024 2:23pmType 2 diabetes mellitus with hyperglycemiaacute January 12, 2025 2:23pmLow back pain radiating to right legdeletedOctober 2024 2:23pmLow back paindeletedOctober 2024 10:02amOther chronic pain deletedOctober 2024 10:02amOther spondylosis with radiculopathy, lumbar regiondeletedOctober 2024 10:02amASHD (arteriosclerotic heart disease) acuteOctober 2024 1:53pmLumbosacral spondylosis with radiculopathyacute February 02, 2025 1:53pmNonhealing ulcer of left lower legacuteOctober 2024 1:53pmType 2 diabetes mellitus with hyperglycemiaacuteOctober 2024 1:53pmChronic HFrEF (heart failure with reduced ejection fraction)acuteNovember 2024 3:01pmLumbosacral spondylosis with radiculopathyacuteNovember 2024 3:01pmPulsatile mass of left upper extremityacuteNovember 2024 3:01pm Plan of Treatment Author Jonathan Samano [facility] HospitalAuthoredSeptember 2024 10:54amPatients primary complaint today is severe lumbar pain radiating into the [...] Above note written by Lexus Link MA, Email Marketing Specialist. Edited and approved by Dr. Jonathan Samano MD.?? Author Jonathan Samano [facility] 9:47amPatients primary complaint today is severe lumbar pain radiating into the [...] Above note written by Lexus Link MA, Email Marketing Specialist. Edited and approved by Dr. Jonathan Samano MD.?? Author Coleman Luz [facility] HospitalredSepttsehootso[facility] 2024 9:10amInstructed on splinting w/ cough/sneezing. Don't advise using chest binder. Instructed to [...] and keep clean Initiate Doxycycline 100mg bid Author Coleman [facility] HospitalredOctge[facility] 2024 8:52pmI have instructed this patient to avoid bending, twisting or lifting. I have also instructed on use of intermittent heat and ice as needed. They may schedule a massage or gentle manipulation. I instructed them on the safe use of Tylenol, Lidocaine and stretching exercises. I informed them of alternative modes of treatment for severe pain, which may include referral to physical therapy or pain management. Recently received HANNA w/ increased RLE N/T and pain. He has subjective weakness in the B/L lower extremities w/ R>L Reflex is decreased in the right patella. MRI lumbar spine scheduled Steroid use, T2DM and blood thinners all contribute to bruising, friable skin and susceptibility for infections. Has already stopped steroid use. Restarted antibiotic coverage Refer to wound clinic for debridement, cleansing and bandaging This patient is stable without activity related chest pain, dyspnea or lightheadedness. I instructed them to continue exercise at least 3x weekly and consume a low salt, low fat, high fiber diet. I instructed them to continue secondary prevention measures in reducing risks for recurrent events. Continue ASA, Atorvastatin and Metoprolol without interruption I have instructed this patient to follow a comprehensive diabetic treatment plan. I have also instructed them to check their feet daily for calluses and nonhealing ulcers. I have instructed them to have a yearly dilated eye examination. I have reviewed their treatment goals: SBP less than 130, LDL less than 100, FBS less than 140, A1C less than 7%. I have instructed them to maintain a home BS log and bring the results to each of their office visits for review. I have explained the importance of routine monitoring of their A1C, Microalbumin and Lipids. I have explained the benefits of well controlled diabetes in preventing micro and macrovascular complications. Rx for Ozempic written to determine cost. GLP1 class of medication would be beneficial in reducing cardiovascular risk in this patient w/ known CAD. GLP1 would also have renal protective benefits. By loss of weight, the GLP1 class of medications would reduce arthritic pain, metabolic liver disease and risk of FER Author Jonathan Samano [facility] HospitalAuthoredOctober 2024 4:30pmPatient presents for follow up for his lumbar MRI. Results discussed above without evidence of acute findings including abscess or hematoma. His main complaint remains severe pain along with weakness in his right leg with difficulty ambulating. He denies any red flag symptoms including bowel or bladder incontinence. Given findings of lumbar MRI with multilevel redundancy clumping due to multilevel severe narrowing, I personally reached out to neurosurgery to review these MRI findings along with his presenting symptoms. Given these findings along with symptoms I have subsequently advised the patient to report to the ED for further evaluation. He understands and notes that he will report to the ED. Above note written by Lexus Link MA, Email Marketing Specialist. Edited and approved by Dr. Jonathan Samano MD.?? Author Coleman Luz [facility] HospitalAuthoredOctober 2024 8:18pmSteroid use, T2DM and blood thinners all contribute to bruising, friable skin and susceptibility for infections. Has already stopped steroid use. Restarted antibiotic coverage Refer to wound clinic for debridement, cleansing and bandaging This patient is stable without activity related chest pain, dyspnea or lightheadedness. I instructed them to continue exercise at least 3x weekly and consume a low salt, low fat, high fiber diet. I instructed them to continue secondary prevention measures in reducing risks for recurrent events. Continue ASA, Atorvastatin and Metoprolol without interruption I have instructed this patient to follow a comprehensive diabetic treatment plan. I have also instructed them to check their feet daily for calluses and nonhealing ulcers. I have instructed them to have a yearly dilated eye examination. I have reviewed their treatment goals: SBP less than 130, LDL less than 100, FBS less than 140, A1C less than 7%. I have instructed them to maintain a home BS log and bring the results to each of their office visits for review. I have explained the importance of routine monitoring of their A1C, Microalbumin and Lipids. I have explained the benefits of well controlled diabetes in preventing micro and macrovascular complications. Rx for Ozempic written to determine cost. GLP1 class of medication would be beneficial in reducing cardiovascular risk in this patient w/ known CAD. GLP1 would also have renal protective benefits. By loss of weight, the GLP1 class of medications would reduce arthritic pain, metabolic liver disease and risk of FER I have instructed this patient to avoid bending, twisting or lifting. I have also instructed on use of intermittent heat and ice as needed. They may schedule a massage or gentle manipulation. I instructed them on the safe use of Tylenol, Lidocaine and stretching exercises. I informed them of alternative modes of treatment for severe pain, which may include referral to physical therapy or pain management. Recently received HANNA w/ increased RLE N/T and pain. He has subjective weakness in the B/L lower extremities w/ R>L Reflex is decreased in the right patella. Weak dorsiflexion right foot MR/MR lumbar spine wo/w con: 01/2025 IMPRESSION: Progression of the multilevel moderate severe to severe canal and subarticular recess narrowing as above. Multilevel crowding of the cauda equina nerve roots and nerve root impingement as detailed above hs progressed from prior examination. Multilevel redundancy clumping of nerve roots cauda equina noted due to the multilevel severe canal narrowing. No definite findings of epidural abscess or discitis osteomyelitis. Author Coleman Luz [facility] HospitalAuthoredNovember 2024 5:31pmAbrupt swelling LUE. Nontender w/o erythema, bruising or tenderness. A pulse can be palpated throughout the area of swelling. I have instructed this patient on a low salt diet, exercise and daily weights. I have instructed them to notify the office for any on any unexpected weight gain > 3lbs and /or increased dyspneaon exertion, difficulty breathing during sleep, worsening lower extremity swelling, chest pain or lightheadedness. I have reviewed the GDMT with beta blockers, CALEB/ARB or ARNI, MRA and a SGLT-2i. Acute worsening of LBP w/ RLE pain. Plan to schedule MRI f/u Neurosurgery Future Tests Future scheduled test information is unavailable Pending Tests Test Name Ordered Date Scheduled Date US arterial duplex UE LT February 17, 2025 5:3 1pm February 17, 2025 5:30pm MR lumbar spine wo/w con January 05, 2025 9: 18am Future Visits Future appointment information is unavailable Future Procedures Procedure Name Ordered Date Scheduled Date Admit Status Order December 09, 2024 9:36am Se ptember 2024 9:36am Discharge Order December 12, 2024 8:31am [facility] 2024 8:31am Future Medications Future medication information is unavailable Patient Instructions Instruction Admit Date Know your Meds December 09, 2024 8:11am Low back pain in adults December 15 025 10:51am Low back pain in adults January 12 2:23pm Low back pain in adults February 02 1:53pm Ganglion Cyst (DC) February 17, 2025 4:43pm Goals Acute Goals Author Authored Date Exhibit optimal tissue perfu lance * Exhibits adequate oxygenation and ventilation * Exhibits adequate cardiac output * Regains stable cardiac rhythm * Maintains optimal activity level * Maintains balanced intake and outputSLake[facility]2024 10:03amAbsence of new skin [facility] 10:03am
--- OUTSIDE RECORDS SUMMARY | 2025-03-01 12:59 | XMS_ITS | Encounter Summary ---
Author Organization [facility] Address [address], [address] [place] [address] Care Team Providers Care Gear Shaper Set Up Operator Name Role Phone Nitesh Garica PA-C Primary Care Provider [phone] Reason for Referral * Imaging (Routine) - ClosedSpecialtyDiagnoses / ProceduresReferred By Contact Referred To ContactRadiology Diagnoses Spinal stenosis of lumbar region with neurogenic claudication Arachnoiditis Procedures MRI LUMBAR SPINE W WO CONTRAST Nitesh Garcia PA-C [address] [facility] [address] [place] [address] Phone: tel: fax: Referral IDStatusReasonStart DateExpiration DateVisits RequestedVisits [id number]/6/202611 Reason for Visit * Imaging (Routine) - ClosedSpecialtyDiagnoses / ProceduresReferred By Contact Referred To ContactRadiology Diagnoses Spinal stenosis of lumbar region with neurogenic claudication Arachnoiditis Procedures MRI LUMBAR SPINE W WO CONTRAST Nitesh Garcia PA-C [address] [facility] [address] [place] [address] Phone: tel: fax: Referral IDStatusReasonStart DateExpiration DateVisits RequestedVisits [id number]/[id number] Encounter Details DateTypeDepartmentCare Team (Latest Contact Info)Ctryinpgkpb02/23/2025 12:59 PM ESTHospital Encounter [facility] [address] [place] [address] Spinal stenosis of lumbar region with neurogenic claudication; Arachnoiditis Social History Tobacco UseTypesPacks/DayYears UsedDateSmoking Tobacco: NeverSmokeless Tobacco: NeverAlcohol UseStandard Drinks/WeekCommentsYes0 (1 standard drink = 0.6 oz pure alcohol)35 (1 standard drink = 0.6 oz pure alcohol)Sex and Gender Information ValueDate RecordedSex Assigned at BirthNot on fileLegal ZitFdrs9705/19/2012 7:11 PM ESTGender IdentityNot on fileSexual OrientationNot on filedocumented as of this encounter Plan of Treatment DateTypeDepartmentCare Team (Latest Contact Info)Kgqolrgluvu87/04/2025 9:00 AM ESTOffice Visit [facility] [address] [place] [id number] Sintia Barksdale, COURT COLLECTIONS OFFICER - POULTRY CULLER [address] [place] [address] 4 week follow up to reassess pain and review medsdocumented as of this encounter Procedures Procedure NamePriorityDate/TimeAssociated DiagnosisCommentsMRI LUMBAR SPINE W WO FASIWSTZSesevrh78/23/2025 2:51 PM EST Spinal stenosis of lumbar region with neurogenic claudication Arachnoiditis documented in this encounter Results * MRI LUMBAR SPINE W WO CONTRAST (03/01/2025 2:51 PM EST)Anatomical Region LateralityModalityT-spine, L-spine, PelvisMagnetic ResonanceSpecimen (Source) Anatomical Location / LateralityCollection Method / VolumeCollection Time Received Time03/01/2025 3:13 PM EST Impressions 03/01/2025 3:17 PM EST 1. Postoperative changes of L4-L5 and L5-S1 laminectomies. 2. Clumping of the cauda equina nerve roots at L5-S1 concerning for arachnoiditis. 3. Multilevel degenerative changes of the lumbar spine with severe spinal canal stenosis from L1-L4 and high-grade foraminal stenosis from L3-S1 as detailed above. Narrative 03/01/2025 3:17 PM EST EXAMINATION: MRI OF THE LUMBAR SPINE WITHOUT AND WITH CONTRAST ??03/01/2025 11:02 am TECHNIQUE: Multiplanar multisequence MRI of the lumbar spine was performed without and with the administration of intravenous contrast. COMPARISON: None. HISTORY: ORDERING SYSTEM PROVIDED HISTORY: Spinal stenosis of lumbar region with neurogenic claudication, Arachnoiditis TECHNOLOGIST PROVIDED HISTORY: STAT Creatinine as needed:->Yes Reason for exam:->arachnoiditis What reading provider will be dictating this exam?->CRC FINDINGS: BONES/ALIGNMENT: Straightening of the normal lumbar lordosis. Grade 1 anterolisthesis of L4 on L5. ??Vertebral body heights are maintained. Diffusely heterogenous marrow signal likely reflecting degenerative changes. CORD/CAUDA EQUINA: Clumping of the cauda equina nerve roots at L5-S1 concerning for arachnoiditis peer SOFT TISSUES: Postoperative changes in the dorsal soft tissues overlying the L4-L5 vertebral levels. L1-L2: Disc bulge. Facet arthropathy. Severe spinal canal stenosis. Mild bilateral foraminal stenosis. L2-L3: Disc bulge. Facet arthropathy. Severe spinal canal stenosis. Mild right greater than left foraminal stenosis. L3-L4: Disc bulge. Facet arthropathy. Severe spinal canal stenosis. Moderate bilateral foraminal stenosis. L4-L5: Disc bulge. Facet arthropathy. Laminectomy. No significant spinal canal stenosis. Moderate bilateral foraminal stenosis. L5-S1: Disc bulge. Facet arthropathy. Laminectomy. Umqi-yv-zbpxtvhl spinal canal stenosis. Severe right and moderate left ??foraminal stenosis. Procedure Note Sukhjinder Bojorquez MD - 03/01/2025 EXAMINATION: MRI OF THE LUMBAR SPINE WITHOUT AND WITH CONTRAST 03/01/2025 11:02 am TECHNIQUE: Multiplanar multisequence MRI of the lumbar spine was performed withoutand with the administration of intravenous contrast. COMPARISON: None. HISTORY: ORDERING SYSTEM PROVIDED HISTORY: Spinal stenosis of lumbar region with neurogenic claudication, Arachnoiditis TECHNOLOGIST PROVIDED HISTORY: STAT Creatinine as needed:->Yes Reason for exam:->arachnoiditis What reading provider will be dictating this exam?->CRC FINDINGS: BONES/ALIGNMENT: Straightening of the normal lumbar lordosis. Grade 1 anterolisthesis of L4 on L5. Vertebral body heights are maintained. Diffusely heterogenous marrow signal likely reflecting degenerativechanges. CORD/CAUDA EQUINA: Clumping of the cauda equina nerve roots at L5-S1 concerning for arachnoiditis peer SOFT TISSUES: Postoperative changes in the dorsal soft tissues overlyingthe L4-L5 vertebral levels. L1-L2: Disc bulge. Facet arthropathy. Severe spinal canal stenosis. Mild bilateral foraminal stenosis. L2-L3: Disc bulge. Facet arthropathy. Severe spinal canal stenosis. Mild right greater than left foraminal stenosis. L3-L4: Disc bulge. Facet arthropathy. Severe spinal canal stenosis.Moderate bilateral foraminal stenosis. L4-L5: Disc bulge. Facet arthropathy. Laminectomy. No significant spinal canal stenosis. Moderate bilateral foraminal stenosis. L5-S1: Disc bulge. Facet arthropathy. Laminectomy. Vamn-wd-oozjlubawoqfmw canal stenosis. Severe right and moderate left foraminal stenosis. IMPRESSION: 1. Postoperative changes of L4-L5 and L5-S1 laminectomies. 2. Clumping of the cauda equina nerve roots at L5-S1 concerning for arachnoiditis. 3. Multilevel degenerative changes of the lumbar spine with severespinal canal stenosis from L1-L4 and high-grade foraminal stenosis from L3-S1as detailed above. Authorizing ProviderResult TypeResult StatusSamusami Patel MDG MRI ORDERABLESFinal Result documented in this encounter Visit Diagnoses Diagnosis Spinal stenosis of lumbar region with neurogenic claudication Spinal stenosis, lumbar region, with neurogenic claudication Arachnoiditis Meningitis, unspecified documented in this encounter Administered Medications Medication OrderMAR ActionAction DateDoseRateSite gadobenate dimeglumine (MULTIHANCE) injection 20 mL 20 mL, IntraVENous, IMG ONCE PRN, 1 dose, Starting on 03/01/25 at 1435, Until 03/01/25 at 1453, Other, Constanza MRI Given03/01/2025 2:53 PM EST20 mLsdocumented in this encounter Additional Health Concerns AssessmentNoted TimeA fall risk assessment has been completed for the patient 02/12/2025 2:30 PM ESTdocumented as of this encounter Care Teams Team MemberRelationshipSpecialtyStart DateEnd Date Nitesh Garcia PA-C [address] [facility] [address] [place] [address] PCP - GeneralNeurological Qhcxddh45/5/25documented as of this encounter
--- OUTSIDE RECORDS SUMMARY | 2025-03-01 14:15 | XMS_ITS | Encounter Summary ---
Author Organization [facility] Address [address], [address] [place] [address] Care Team Providers Care Human Resources Supervisor Name Role Phone Nitesh Garcia PA-C Primary Care Provider [phone] Encounter Details DateTypeDepartmentCare Team (Latest Contact Info)Ajnylmdtkcc81/23/2025 2:15 PM ESTHospital Encounter [facility] [address] [place] [address] Spinal stenosis of lumbar region with neurogenic claudication; Arachnoiditis Social History Tobacco UseTypesPacks/DayYears UsedDateSmoking Tobacco: NeverSmokeless Tobacco: NeverAlcohol UseStandard Drinks/WeekCommentsYes0 (1 standard drink = 0.6 oz pure alcohol)35 (1 standard drink = 0.6 oz pure alcohol)Sex and Gender Information ValueDate RecordedSex Assigned at BirthNot on fileLegal AgnPset3005/19/2012 7:11 PM ESTGender IdentityNot on fileSexual OrientationNot on filedocumented as of this encounter Plan of Treatment DateTypeDepartmentCare Team (Latest Contact Info)Jviihmvshgt14/04/2025 9:00 AM ESTOffice Visit [facility] [address] [place], [place] [id number] Sintia Barksdale, INTERVENTIONAL SALE CONSULTANT - VENTURE CAPITAL ANALYST [address] [place] [address] 4 week follow up to reassess pain and review medsNameTypePriorityAssociated DiagnosesDate/TimeXR LUMBAR SPINE (MIN 4 VIEWS)ImagingRoutine Spinal stenosis of lumbar region with neurogenic claudication Arachnoiditis 03/01/2025 2:42 PM ESTNameTypePriorityAssociated DiagnosesOrder ScheduleXR LUMBAR SPINE (MIN 4 VIEWS)ImagingRoutine Spinal stenosis of lumbar region with neurogenic claudication Arachnoiditis 1 Occurrences starting 03/01/2025 until 03/01/2025documented as of this encounter Visit Diagnoses Diagnosis Spinal stenosis of lumbar region with neurogenic claudication Spinal stenosis, lumbar region, with neurogenic claudication Arachnoiditis Meningitis, unspecified documented in this encounter Additional Health Concerns AssessmentNoted TimeA fall risk assessment has been completed for the patient 02/12/2025 2:30 PM ESTdocumented as of this encounter Care Teams Team MemberRelationshipSpecialtyStart DateEnd Date Nitesh Garcia PA-C [address] [facility] [address] [place] [id number] PCP - GeneralNeurological Khxdril44/5/25documented as of this encounter
--- OUTSIDE RECORDS SUMMARY | 2025-03-03 10:43 | XMS_ITS | Clinical Summary ---
Author Organization [facility] Address [address] [place] [address] Phone Care Team Providers Care Aniline Press Worker Name Role Phone Coleman Luz Primary Care Provider [phone] Allergies Active AllergyReactionsCriticalityNoted DateCommentsPrednisoneOther,HeadacheLow 07/27/2023 Light sensitivity. [...] left atrial appendage closure device 01/28/2024Never smoked cpiuoyjvfd79/11/2024Multi-vessel coronary artery stenosis 07/27/2023ardiomyopathy, jfwhlmbo55/19/2024Mixed owgxkcjcbwmguj28/19/2024Status post aorto-coronary artery bypass graft07/27/2023ersistent atrial fibrillation 07/27/2023 Resolved Problems ProblemNoted DateDiagnosed DateResolved DateAtrial fibrillation, unspecified type/trial supbxfszgdet71/19/202411/aroxysmal atrial morsfyntyzcr21/19/202404/MI 32.0-32.9,adult/ Encounters DateTypeDepartmentCare CzipHzscsqtqscn81/24/2025 6:25 AM EDTClinical Support [facility] [address] [place] [address] 01/30/2025 2:25 AM EDTClinical Support [facility] [address] [place] [address] 01/30/2025 1:32 AM EDT - 01/30/2025 9:30 AM EDTEmergency [facility] [address] [place] [address] Diogo Macias MD Lareau, Aaron D, MD Right leg weakness (Primary Dx) Discharge Disposition: Home01/30/20253026Kyynjq21/15/2025 11:30 AM [address]TOffice [address] [place] [address] Daisy Mora MD Status post aorto-coronary artery bypass graft (Primary Dx); Multi-vessel coronary artery stenosis; Presence of Watchman left atrial appendage closure device; Persistent atrial fibrillation (Multi); Mixed hyperlipidemia; Dilated aortic root; Cardiomyopathy, ischemic; Never smoked cigarettes; Obesity (BMI 30-39.9) Discharge Disposition: Home12/22/20241906Dnagux10/10/2025Scanned Document [facility] [address] [place] [address] Scanning, Generic Provider 12/15/2024 3:00 PM EDTAncillary Procedure [address] [place] [address] Keila Garcia CMA Discharge Disposition: Home12/15/20242831Qljrjq69/05/2025Scanned Document [facility] [address] [place] [address] Scanning, Generic Provider 12/12/2024Telephone [address] [place] [address] Mary Ann Miller RN 12/09/2024Scanned Document [facility] [address] [place] [address] Scanning, Generic Provider 12/03/2024Orders Only [address] [place] [address] Daisy Mora MD Multi-vessel coronary artery stenosis; Cardiomyopathy, ischemicfrom Last 3 Months Immunizations ImmunizationAdministration DatesNext DueDTaP, Xxftjifapzn23/05/2021Flu vaccine (IIV4), preservative free *Check age/dose*04/05/2023Influenza, Split (incl. purified surface antigen)02/06/2022,01/13/2020,01/02/2019Influenza, injectable, MDCK, shgcnqtrmohs26/15/2018Influenza, seasonal, tjpitswnkt37/19/2024Influenza, trivalent, kkeqkoujqd34/12/2021Pfizer Purple Cap KAWC-UgT-398/09/2021 Family History Medical HistoryRelationNameCommentsNo Known ProblemsFatherNo Known Problems MotherRelationNameStatusCommentsFatherDeceasedMotherDeceased Social History Tobacco UseTypesPacks/DayYears UsedDateSmoking Tobacco: NeverSmokeless Tobacco: Never Tobacco Cessation:Counseling Given: Not Answered Alcohol UseStandard Drinks/SmebPemizhqwVfv55 (1 standard drink = 0.6 oz pure alcohol)PHQ-2AnswerDate RecordedPatient Health Questionnaire-2 Nudnf884 Sex and Gender InformationValueDate RecordedSex Assigned at BirthNot on file Legal MdlOemk1507/09/2023 9:17 AM EDTGender IdentityNot on fileSexual Orientation Not on file Last Filed Vital Signs Vital SignReadingTime TakenCommentsBlood Pkpxcggk717/7301/30/2025 8:08 AM EDT Zllcd432601/30/2025 8:08 AM ZMKHwucohxedzy02.7 ??C (98 ??F)01/30/2025 2:15 AM EDT Respiratory Xwhx5291 8:08 AM EDTOxygen Bcxyegdmng46%01/30/2025 8:08 AM EDTInhaled Oxygen Concentration--Pmyxou21.2 kg (212 lb)01/30/2025 1:41 AM EDT Kpobmr850.8 cm (5' 10 )01/30/2025 1:41 AM EDTBody Mass Index30.421 1:41 AM EDT Plan of Treatment DateTypeDepartmentCare Team (Latest Contact Info)Zapcwplvupw67/12/2026 3:20 PM EDTOffice Visit [facility] [address] [address] Daisy Mora MD 703 [facility] [place] [address] Health MaintenanceDue DateLast DoneCommentsCT Udnosvbljlkt55/09/1960FIT-DNA (Cologuard)1959FIT1959Lipid Panel1959 9383Jneqhxcmmagjg99/09/1960 TSH Level1959MMR Vaccines (1 of 1 - Standard series)12/16/1960Hepatitis C Qvdzutkuf19/09/1978Hepatitis A Vaccines (1 of 2 - Risk 2-dose series)12/16/1978 Pneumococcal Vaccine (1 of 2 - PCV)12/16/1978PSA Prostate Cancer Screening 12/16/2009RSV High Risk: (Elderly (60+) or Population) (1 - Risk 50-74 years 1-dose series)12/16/2009Zoster Vaccines (1 of 2)12/16/2009Hepatitis B Vaccines (1 of 3 - Risk 3-dose series)2019Influenza Vaccine (#1)2024 01/26/2024, 04/05/2023, 02/06/2022, Additional history existsMedicare Annual Wellness Visit (AWV)508/4COVID-19 Vaccine (2 - 2024- season) 503/9442Ffogtpfelicchv10/05/943223/08/2024, 01/29/2024, 01/29/2024, Additional history existsCreatinine Level/, 01/29/2024 Diabetes Tyhtcyqkr19/, 4Potassium Level01/30/2026 01/30/2025, 4DTaP/Tdap/Td Vaccines (2 - Tdap)102/08/2020 Gbtxfpnnsvh16/23//olorectal Cancer Qwthuorta72/23/2034Bone Density YqazYbjqjforfvgn75/21/2024, 06/28/2023, 06/28/2023Welcome to Medicare Visit Tjaxluavkctt85/12/2024HIB VaccinesAged OutNo longer eligible based on patient's [...] Closure, 27mm Watchman Flx Pro Laac - [id number] Implanted:Qty: 1 on 01/29/2024 [facility] Cardiac ImplantN/A: Monetate [id number] 09/18/[id number] / / [id number] Procedures Procedure NamePriorityDate/TimeAssociated DiagnosisCommentsECG 12-LEADRoutine 01/30/2025 6:23 AM EDT MR INTERPRETATION OF OUTSIDE PPKFUXBDJ38/24/2025 5:05 AM EDT PROTIME-URZOTKH6301/30/2025 3:41 AM EDT ECG 12-AGXQYVXH86/24/2025 2:21 AM EDT TYPE AND TEDMLTNPGO76/24/2025 2:16 AM EDT COMPREHENSIVE METABOLIC JOERHJADN63/24/2025 2:16 AM EDT CBC WITH AUTO BFPYUNABIFEELWXP59/24/2025 2:16 AM EDT ECG 12-SSENKpztfyp64/15/2025 11:30 AM EDT Persistent atrial fibrillation (Multi) ECG 12-TJROUsgmyck49/08/2025 2:38 PM EDT History of cardioversion Abnormal electrocardiogram (ECG) (EKG) Persistent atrial fibrillation (Multi) LFPIVNNBTAMJHE56/05/2025 from Last 3 Months or Most Recently Relevant to Health Maintenance Results * ECG 12 lead (01/30/2025 6:23 AM EDT) Only the most recent of4 resultswithin the time period is included. ComponentValueRef RangeTest MethodAnalysis TimePerformed AtPathologist Signature Ventricular Pyvh94QQTPDFKCWP Kvyiotbb623fjKXZLYO Gckvrshj317cjXMAYHOD Calculation(Bazett)464msMUSER Lues50nzkchrePYBUO Ector-16degreesMUSEQRS Count13 beatsMUSEQ Cbbsa707miTOIUL Dskrzo008wjIUKWCFS Yotliojwgc318lbLIZHTfayklgc (Source)Anatomical Location / LateralityCollection Method / VolumeCollection [...] and clinical correlation Confirmed by Savana Meza ([id number]) on 01/30/2025 7:48:49 PM Procedure Note Savana Meza PA-C - 01/30/2025 Atrial fibrillation with a competing junctional pacemaker Nonspecific T wave abnormality Abnormal ECG When compared with ECG of 30-JAN-2025 02:19, Criteria for Inferior infarct are no longer Present See ED provider note for full interpretation and clinical correlation Confirmed by Savana Meza ([id number]) on 01/30/2025 7:48:49 PM Authorizing ProviderResult TypeResult [...] Mendez 01/30/2025 9:54 AM Dictation workstation: ?? [id number] Narrative 01/30/2025 9:54 AM EDT Interpreted By: Nilson Mendez, STUDY: MR INTERPRETATION OF OUTSIDE FILMS; ; ??01/30/2025 5:05 am ?? INDICATION: Signs/Symptoms:Interpretation of outside film. ??2nd opinion requested by the referring physician. Right lower extremity pain and weakness after epidural injection. ? COMPARISON: No prior cross-sectional evaluation of the lumbar spine is available at this institution at this time. ?? ACCESSION NUMBER(S): [id number] ?? ORDERING CLINICIAN: DIOGO MACIAS ?? TECHNIQUE: [...] this institution at this time. ACCESSION NUMBER(S): [id number] ORDERING CLINICIAN: DIOGO MACIAS TECHNIQUE: Outside institution [...] Nilson Mendez 01/30/2025 9:54 AM Dictation workstation: [id number] Authorizing ProviderResult TypeResult StatusAdam Colleen DOHERTYPal MRI PROCEDURES Final Result * Protime-INR (01/30/2025 3:41 AM EDT)ComponentValueRef RangeTest MethodAnalysis TimePerformed AtPathologist AucnknbexDxmgujl45.09.8 - 12.4 seconds LAB COAGULATION METHOD 01/30/2025 4:33 AM [facility] LABINR1.00.9 - 1.1 LAB COAGULATION METHOD 01/30/2025 4:33 AM [facility] LABSpecimen (Source)Anatomical Location / Laterality Collection Method / VolumeCollection TimeReceived TimeBloodVenous blood specimen / UnknownVenipuncture / Mfblklz7001/30/2025 3:41 AM EDT1 4:05 AM EDT Narrative Authorizing ProviderResult TypeResult StatusFrancdeana Dias [facility] BLOOD ORDERABLESFinal ResultPerforming OrganizationAddressCity/State/ZIP CodePhone Number [facility] [address] [facility] [address] [place] [address] * (ABNORMAL) CBC and Auto Differential (01/30/2025 2:16 AM EDT)ComponentValueRef RangeTest MethodAnalysis TimePerformed AtPathologist SignatureWBC7.04.4 - 11.3 x10*3/uL LAB HEMATOLOGY METHOD 01/30/2025 3:12 AM [facility] LABnRBC0.00.0 - 0.0 /100 WBCs LAB HEMATOLOGY METHOD 01/30/2025 3:12 AM [facility] LABRBC3.87(L)4.50 - 5.90 x10*6/uL LAB HEMATOLOGY METHOD 01/30/2025 3:12 AM [facility] MCDFujjjdrtpk23.113.5 - 17.5 g/dL LAB HEMATOLOGY METHOD 01/30/2025 3:12 AM [facility] MFJUgfboavexg55.0(L)41.0 - 52.0 % LAB HEMATOLOGY METHOD 01/30/2025 3:12 AM [facility] BJXJKS622(H)80 - 100 fL LAB HEMATOLOGY METHOD 01/30/2025 3:12 [facility] OTWKGY48.4(H)26.0 - 34.0 pg LAB HEMATOLOGY METHOD 01/30/2025 3:12 AM [facility] AUJBGNV04.2(H)32.0 - 36.0 g/dL LAB HEMATOLOGY METHOD 01/30/2025 3:12 AM EDTUHCMC JMMDKX92.611.5 - 14.5 % LAB HEMATOLOGY METHOD 01/30/2025 3:12 AM [facility] NLKVzwcqtdof548(L)150 - 450 x10*3/uL LAB HEMATOLOGY METHOD 01/30/2025 3:12 AM [facility] LABNeutrophils %73.440.0 - 80.0 % LAB HEMATOLOGY METHOD 01/30/2025 3:12 AM [facility] LABImmature Granulocytes %, Automated1.9(H)0.0 - 0.9 % LAB HEMATOLOGY METHOD 01/30/2025 3:12 AM [facility] LABComment:Immature Granulocyte Count (IG) includes promyelocytes, myelocytes and metamyelocytes but does not include bands. Percent differential counts (%) should be interpreted in the context of the absolute c ell counts (cells/UL).Lymphocytes %16.313.0 - 44.0 % LAB HEMATOLOGY METHOD 01/30/2025 3:12 AM [facility] LABMonocytes %7.72.0 - 10.0 % LAB HEMATOLOGY METHOD 01/30/2025 3:12 AM [facility] LABEosinophils %0.40.0 - 6.0 % LAB HEMATOLOGY METHOD 01/30/2025 3:12 AM [facility] LABBasophils %0.30.0 - 2.0 % LAB HEMATOLOGY METHOD 01/30/2025 3:12 AM [facility] LABNeutrophils Absolute5.141.20 - 7.70 x10*3/uL LAB HEMATOLOGY METHOD 01/30/2025 3:12 AM [facility] LABComment:Percent differential counts (%) should be interpreted in the context of the absolute cell counts (cells/uL).Immature Granulocytes Absolute, Automated0.130.00 - 0.70 x10*3/uL LAB HEMATOLOGY METHOD 01/30/2025 3:12 AM [facility] LABLymphocytes Absolute1.14(L)1.20 - 4.80 x10*3/uL LAB HEMATOLOGY METHOD 01/30/2025 3:12 AM [facility] LABMonocytes Absolute0.540.10 - 1.00 x10*3/uL LAB HEMATOLOGY METHOD 01/30/2025 3:12 AM [facility] LABEosinophils Absolute0.030.00 - 0.70 x10*3/uL LAB HEMATOLOGY METHOD 01/30/2025 3:12 AM [facility] LABBasophils Absolute0.020.00 - 0.10 x10*3/uL LAB HEMATOLOGY METHOD 01/30/2025 3:12 AM [facility] LABSpecimen (Source)Anatomical Location / Laterality Collection Method / VolumeCollection TimeReceived TimeBloodVenous blood specimen / UnknownVenipuncture / Zkslbrp9801/30/2025 2:16 AM EDT1 2:32 AM EDT Narrative Authorizing ProviderResult TypeResult StatusFrkiley Dias MDLAB BLOOD ORDERABLESFinal ResultPerforming OrganizationAddressCity/State/ZIP CodePhone Number [facility] [address] [phone] * Type And Screen (01/30/2025 2:16 AM EDT)ComponentValueRef RangeTest Method Analysis TimePerformed AtPathologist SignatureABO TYPEA1 5:04 AM EDT [facility] BLOOD BANKRh JPXYLGO9101/30/2025 5:04 AM ED[facility] BLOOD BANKANTIBODY UVSCGMJKU46/24/2025 5:04 AM [facility] BLOOD BANKSpecimen (Source)Anatomical Location / LateralityCollection Method / VolumeCollection TimeReceived Time BloodVenous blood specimen / UnknownVenipuncture / Sqotzic5901/30/2025 2:16 AM EDT1 3:16 AM EDT Narrative Authorizing ProviderResult TypeResult StatusFrkiley Dias MDLAB BLOOD BANK TEST ORDERABLESFinal ResultPerforming OrganizationAddressCity/State/ZIP Code Phone Number [facility] [address] [place] [address] * (ABNORMAL) Comprehensive metabolic panel (01/30/2025 2:16 AM EDT)Component ValueRef RangeTest MethodAnalysis TimePerformed AtPathologist SignatureGlucose 169(H)74 - 99 mg/dL LAB CHEMISTRY METHOD 01/30/2025 3:06 AM [facility] VMODxhfxf706560 - 145 mmol/L LAB CHEMISTRY METHOD 01/30/2025 3:06 AM [facility] LABPotassium3.73.5 - 5.3 mmol/L LAB CHEMISTRY METHOD 01/30/2025 3:06 AM [facility] DINUjypscjm84560 - 107 mmol/L LAB CHEMISTRY METHOD 01/30/2025 3:06 AM [facility] ICQOhggezewgsg1084 - 32 mmol/L LAB CHEMISTRY METHOD 01/30/2025 3:06 AM [facility] LABAnion Ugg8601 - 20 mmol/L LAB CHEMISTRY METHOD 01/30/2025 3:06 AM [facility] LABUrea Ezsasdsn185 - 23 mg/dL LAB CHEMISTRY METHOD 01/30/2025 3:06 AM [facility] LABCreatinine0.730.50 - 1.30 mg/dL LAB CHEMISTRY METHOD 01/30/2025 3:06 AM [facility] LABeGFR>90>60 mL/min/1.73m*2 LAB CHEMISTRY METHOD 01/30/2025 3:06 AM [facility] LABComment: Calculations of estimated GFR are performed using the 2020 CKD-EPI Study Refit equation without therace variable for the IDMS-Traceable creatinine methods. https://jasn.asnjournals.org/content//ASN.0702984322 Calcium9.28.6 - 10.6 mg/dL LAB CHEMISTRY METHOD 01/30/2025 3:06 AM [facility] LABAlbumin4.03.4 - 5.0 g/dL LAB CHEMISTRY METHOD 01/30/2025 3:06 AM [facility] LABAlkaline Qvpenlumjfv5339 - 136 U/L LAB CHEMISTRY METHOD 01/30/2025 3:06 AM [facility] LABTotal Protein6.3(L)6.4 - 8.2 g/dL LAB CHEMISTRY METHOD 01/30/2025 3:06 AM [facility] QRWNEM852 - 39 U/L LAB CHEMISTRY METHOD 01/30/2025 3:06 AM [facility] LABBilirubin, Total1.20.0 - 1.2 mg/dL LAB CHEMISTRY METHOD 01/30/2025 3:06 AM [facility] SMWFSE5510 - 52 U/L LAB CHEMISTRY METHOD 01/30/2025 3:06 AM [facility] LABComment:Patients treated with Sulfasalazine may generate falsely decreased results for ALT.Specimen (Source)Anatomical Location / LateralityCollection Method / VolumeCollection TimeReceived TimeBloodVenous blood specimen / UnknownVenipuncture / Kesdikw4901/30/2025 2:16 AM EDT1 2:32 AM EDT Narrative Authorizing ProviderResult TypeResult StatusFrancdeana Dias MNLAB BLOOD ORDERABLESFinal ResultPerforming OrganizationAddressCity/State/ZIP CodePhone Number [facility] [address] [facility] [address] [phone] * Echocardiogram (08/11/2024) Narrative 08/11/2024 Ordered by an unspecified provider. Authorizing ProviderResult TypeResult StatusGeneric Provider ScanningCV ECHO PROCEDURESFinal Result from Last 3 Months or Most Recently Relevant to Health Maintenance Insurance Advance Directives For more information, please contact: [phone] (Available ) * Full Code (Latest Code Status on File) Date ActivatedDate VcmhxvxhlohBbyzmhue16/22/2024 9:31 AMQuestionAnswerComments Plan of Care:* Code Status Discussion Completed Decision Maker:* Patient Care Teams Team MemberRelationshipSpecialtyStart DateEnd Date Coleman [place] [address] PCP - GeneralInternal Medicine05/07/24
--- OUTSIDE RECORDS SUMMARY | 2025-03-03 10:43 | XMS_ITS | Clinical Summary ---
Author Organization [facility] Address [address], [address] [place] [address] Care Team Providers Care Hydrate Control Tender Name Role Phone Nitesh Garcia PA-C Primary Care Provider [phone] Allergies Active AllergyReactionsCriticalityNoted DateCommentsPrednisoneHeadaches,Other (See Comments)Low07/27/2023 Other [...] by mouth5Active vitamin D (ERGOCALCIFEROL) 1.25 MG (36748 UT) CAPS capsule (take by mouth with food twice a week, ONE CAPSULE ON SUNDAY AND ONE ON SUNDAY) FOR A TOTAL OF 10WEEKS. Then once a week /31/2025Active levothyroxine (SYNTHROID) 200 MCG tablet Take 1 tablet by mouth dailyActive magnesium oxide (MAG-OX) 400 MG tablet 1 tablet dailyActive spironolactone-hydroCHLOROthiazide (ALDACTAZIDE) 25-25 MG per tablet Take 1 tablet by mouth every edkahco67/31/2024Active valsartan (DIOVAN) 40 MG tablet Take 1 tablet by mouth daily/ctive gabapentin (NEURONTIN) 300 MG capsule Take 1 capsule by mouth 3 times daily as needed (start at night) for up to 30 days. Intended supply: 30 days 90 capsule 5Active Active Problems No known active problems Encounters DateTypeDepartmentCare RxrnHsllnczvzhk07/23/2025 2:15 PM ESTHospital Encounter [facility] Radiology [address] [place] [address] Spinal stenosis of lumbar region with neurogenic claudication; Mwmjmsrfwkjpc82/23/2025 12:59 PM ESTHospital Encounter [facility] MRI [address] [place] [address] Spinal stenosis of lumbar region with neurogenic claudication; Gntnmmpdxgyin47/06/2025 2:30 PM ESTInitial consult [facility] Management [address] [place] [address] [address] [place] [address] Deep Mendez DO Chronic pain syndrome (Primary Dx); Lumbar mnzkcmdomzjro73/05/2025 10:00 AM ESTOffice Visit [facility], a department of [address] [place] [address] Austen Patel MD Spinal stenosis of lumbar region with neurogenic claudication (Primary Dx); Arachnoiditisfrom Last 3 Months Social History Tobacco UseTypesPacks/DayYears UsedDateSmoking Tobacco: NeverSmokeless Tobacco: NeverAlcohol UseStandard Drinks/WeekCommentsYes0 (1 standard drink = 0.6 oz pure alcohol)35 (1 standard drink = 0.6 oz pure alcohol)Sex and Gender Information ValueDate RecordedSex Assigned at BirthNot on fileLegal JwkIxoh6705/19/2012 7:11 PM ESTGender IdentityNot on fileSexual OrientationNot on file Last Filed Vital Signs Vital SignReadingTime TakenCommentsBlood Pressure--Aukma557602/12/2025 2:26 PM EST Enxzqjediyi30.2 ??C (97.2 ??F)02/12/2025 2:26 PM ESTRespiratory Njlb213504/13/2024 9:56 AM ESTOxygen Shtbiskgvv01%02/12/2025 2:26 PM ESTInhaled Oxygen Concentration--Elitmn72.7 kg (211 lb)02/12/2025 2:26 PM YKOQkzhuo251.1 cm (5' 10.5 )02/12/2025 2:26 PM ESTBody Mass Index29.8502/12/2025 2:26 PM EST Plan of Treatment DateTypeDepartmentCare Team (Latest Contact Info)Ijkbzrlpnca52/04/2025 9:00 AM ESTOffice [facility] [address] [place] [address] Sintia Barksdale APRN - TECHNICAL TRAINING SPECIALIST [address] [place] [address] 4 week follow up to reassess pain and review medsHealth MaintenanceDue DateLast DoneCommentsDepression Puwxdg9512/17/1971HIV nqqgzi8912/16/1974Hepatitis C screen 12/16/1977Diabetes papygd1812/16/19940438Svxwvd36/09/7735Vdhwugedlft84/09/2005 Colorectal Cancer Cisonf0212/16/2004FIT/FOBT: Average risk12/16/2004Fecal-DNA (Cologuard): Average risk12/16/2004Sigmoidoscopy/CT zkbocezejdzk61/09/2005 Pneumococcal 50+ years Vaccine (1 of 1 - PCV)12/16/2009Shingles vaccine (1 of 2) 12/16/2009Flu vaccine (#1), 04/05/2023, 02/06/2022, Additional history existsCOVID-19 Vaccine ( - 2024- season)2024 04/11/2021, 06/25/2020, 06/04/2020nnual Wellness Visit (Medicare)02/04/2025 DTaP/Tdap/Td vaccine (2 - Tdap)/espiratory Syncytial Virus (RSV) or age 60 yrs+ [...] on patient's age to complete this topic Procedures Procedure NamePriorityDate/TimeAssociated DiagnosisCommentsMRI LUMBAR SPINE W WO LHUJORGHYqumpmn83/23/2025 2:51 PM EST Spinal stenosis of lumbar region with neurogenic claudication Arachnoiditis from Last 3 Months Results * MRI LUMBAR SPINE W WO [...] stenosis. L5-S1: Disc bulge. Facet arthropathy. Laminectomy. Buyt-ij-tunrnuzn spinal canal stenosis. Severe right and moderate [...] stenosis. L5-S1: Disc bulge. Facet arthropathy. Laminectomy. Xxpy-mt-dfanqhluzcshzc canal stenosis. Severe right and moderate left foraminal stenosis. IMPRESSION: 1. Postoperative changes of L4-L5 and L5-S1 laminectomies. 2. Clumping of the cauda equina nerve roots at L5-S1 concerning for arachnoiditis. 3. Multilevel degenerative changes of the lumbar spine with severespinal canal stenosis from L1-L4 and high-grade foraminal stenosis from L3-S1as detailed above. Authorizing ProviderResult TypeResult StatusSamusami Patel MDIMG MRI ORDERABLESFinal Result from Last 3 Months Insurance Care Teams Team MemberRelationshipSpecialtyStart DateEnd Nitesh Garcia PA-C [address] [phone] PCP - GeneralNeurological Exssjtn90/5/25
--- OUTSIDE RECORDS SUMMARY | 2025-03-03 10:43 | XMS_ITS | Clinical Summary ---
Author Organization [facility] Healthcare Address [address] [place] [address] Care Team Providers Care Harbor Master Name Role Phone Coleman Luz Primary Care Provider [phone] Allergies Active AllergyReactionsCriticalityNoted DateCommentsPrednisoneHeadache,Other 07/27/2023 Other Reaction(s): [...] Problems ProblemNoted DateDiagnosed DateOSA (obstructive sleep apnea)09/19/2023 Xznljllwxuy89/12/2668Shblgqo66/12/2024aytime axmmgrjzkmyaznp87/12/2024Snoring 09/19/2023trial yfdjaohupupg83/12/5574Ydupwhpdxz27/12/2024oronary artery disease (CAD) djqqutrr52/12/7817Irfjcnta68/12/5209Nsjpcppvcofx30/12/2024 Family History Medical HistoryRelationNameCommentsNephrolithiasisMotherStrokeMotherpacemaker MotherRelationNameStatusCommentsFatherDeceasedMotherDeceased Social History Tobacco UseTypesPacks/DayYears UsedDateSmoking Tobacco: NeverSmokeless Tobacco: Never Tobacco Cessation:Counseling Given: Not Answered Sex and Gender InformationValueDate RecordedSex Assigned at BirthNot on file Legal GcnFive7906/21/2022 6:57 PM EDTGender IdentityNot on fileSexual Orientation Not on file Last Filed Vital Signs Vital SignReadingTime TakenCommentsBlood Mnstawux294/8209/19/2023 10:17 AM EDT Zexfz747809/19/2023 10:17 AM EDTTemperature--Respiratory Rate--Oxygen Saturation-- Inhaled Oxygen Concentration--Seahyy281 kg (243 lb)09/19/2023 10:17 AM EDTHeight 177.8 cm (5' 10 )09/19/2023 10:17 AM EDTBody Mass Index34.8709/19/2023 10:17 AM EDT Plan of Treatment Not on file Insurance Care Teams Team MemberRelationshipSpecialtyStart DateEnd Date Coleman Luz DO PCP - GeneralInternal Medicine09/19/23
--- OUTSIDE RECORDS SUMMARY | 2025-03-03 10:43 | XMS_ITS | Clinical Summary ---
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 Name Role Phone Melinda Verduzco APRN.ELIGIBILITY CLERK Unavailable Coleman Luz DO Primary Care Provider [phone] Allergies No known active allergies Medications MedicationSigDispense [...] sed rate,Elevated C-reactive protein (CRP),PMR (polymyalgia rheumatica) ([facility])Day 1=6tabs with food, Day 2=5tabs, Day 3=4tabs, [...] 5Active Active Problems ProblemNoted DateDiagnosed DateLeg weakness, upurdhaoh60/24/2025Chronic pain of both knees03/05/2023ain in right hip01/05/2023Rotator cuff arthropathy of left uzezlivn04/29/2023ilateral hand pain01/05/2023Secondary osteoarthritis of multiple sites01/05/2023seudogout involving multiple hvtoim9101/05/2023MR (polymyalgia rheumatica)01/05/2023Idiopathic chronic gout of multiple sites without mgwbpf8201/05/2023Long term current use of systemic exzilwwh82/29/2023NA /29/2023ilateral hand nhfsugcp27/29/3144Lzuhbglktg33/23/2014CAD (coronary artery disease)10/29/2013OA (osteoarthritis)10/29/2013Hyperlipidemia 10/29/20139921Yninlwvbarmdde81/23/2014Swelling of knee joint06/01/2009 Encounters DateTypeDepartmentCare GxmpDxvyxphlkdx84/09/2025 [place] [address] Provider, f Medicare Coverage of Physical Examsfrom Last 3 Months Immunizations ImmunizationAdministration DatesNext Duediphtheria tetanus pertussis (DTaP) vaccine, unspecified ygagetlfpfq10/05/2021influenza (aIIV3) vaccine, age 65+ yr, trivalent, PF (FLUAD)01/18/2021influenza (ccIIV4) vaccine, age 6+ mo, quadrivalent (FLUCELVAX)01/21/2018influenza vaccine, split virus02/06/2022, 01/13/2020,01/02/2019 Family History Medical HistoryRelationCommentsHeartFatherLipidsFatherStrokeMotherRelationStatus CommentsFatherMother Social History Tobacco UseTypesPacks/DayYears UsedDateSmoking Tobacco: Never Tobacco Cessation:Counseling Given: Yes Alcohol UseStandard Drinks/EtzdBxpdqfazWyu01 (1 standard drink = 0.6 oz pure alcohol)Area Deprivation IndexAnswerDate RecordedNational Score (1-100), lower number is lower nrpf118709/13/2024State Score (1-10), lower number is lower risk4 09/13/2024Data from: https://www.neighborhoodatlas.[facility].edu/. Last address used for [address]/13/2024Sex and Gender InformationValueDate RecordedSex Assigned at BirthNot on fileLegal SexMale 03/10/2012 8:27 AM ESTGender IdentityNot on fileSexual OrientationNot on file OccupationIndustryJob Start DateJob End DateNot working nowNot on fileNot on fileNot on file Last Filed Vital Signs Vital SignReadingTime TakenCommentsBlood Kksvnidp217/8503 9:38 AM EDT Poews8297 9:38 AM MEFOjibqixlvvq46.2 ??C (98.9 ??F)10/29/2013 3:23 PM EDTRespiratory Rate--Oxygen Saturation--Inhaled Oxygen Concentration--Mbesqc912 kg (235 lb 14.3 oz)06/30/2024 9:38 AM VWSCqarys265.1 cm (5' 10.5 )01/05/2023 10:55 AM EDTBody Mass Index33.37001/05/2023 10:55 AM EDT Plan of Treatment DateTypeDepartmentCare Team (Latest Contact Info)Shqqrrinoal05/23/2026 9:00 AM EDTOffice Visit Rheumatology [address] [place] [address] Rose Foster MD [address] [place] [address] Return for gout/osteoarthritis/pseudogout/low vit fu OV 6-12months.08/25/2025 12:00 PM EDTOffice Visit Rheumatology [address] [place] [address] Rose Foster MD [address] [place] [address] Follow up for osteoarthritis/PMR/gout in 6-12monthsHealth MaintenanceDue Date Last DoneCommentsAnnual PCP Team Chronic Disease Visit12/16/1977Anxiety Vpneuycun27/09/1978Depression Pehfhnneh76/09/1978HIV Kgxdxcjlz43/09/1978LDL Fkjsxzydrij89/09/1978Lipid Vsedpbjzc30/09/1995CT Vlaaojekqnne21/09/2005Cologuard (FIT-DNA)12/16/20042428Xhcxtfkdzlf25/09/2005Colorectal Cancer Kfqdhflcd02/09/2005 Fecal Occult Blood12/16/20042942Pqdmndhhuwueq93/09/2005Pneumococcal Vaccine: 50+ (1 of 1 - PCV)12/16/2009Shingrix Vaccine (1 of 2)12/16/2009Medicare Advantage Annual Wellness Visit04/09/2024ovid-19 Vaccine (4 - 2024- season)2024 04/11/2021, 06/25/2020, 06/04/2020Influenza Vaccine (#1)5106/06/2022, 02/06/2022, 01/18/2021, Additional history existsAdvance Directive Discussion 12/16/2024Diabetes Cyxhtguvz92/24/12632406/30/2024, 01/29/2024, 06/12/2023, Additional history existsProstate Cancer Screening Hyhwdqeuaj04/22/2028 3DTaP,Tdap,Td Vaccine (2 - Tdap)/1RSV Vaccine (1 - 1- dose 75+ series)12/16/2034Hepatitis C VpnrypmarIectrxpyo78/29/2023, 02/07/2010 Procedures Procedure NamePriorityDate/TimeAssociated DiagnosisCommentsCOMPREHENSIVE METABOLIC WHHTIWwbcsqs19/24/2025 10:15 AM EDT Elevated LFTs HEPATITIS C ANTIBODY IA WITH KMKWHYGUIORIVnxowrk34/29/2023 12:31 PM EDT Elevated LFTs from Last 3 Months or Most Recently Relevant to Health Maintenance Results * (ABNORMAL) COMPREHENSIVE METABOLIC PANEL (06/30/2024 10:15 AM EDT)Component ValueRef RangeTest MethodAnalysis TimePerformed AtPathologist Signature Protein, Total7.16.3 - 8.0 g/dL06/30/2024 9:41 PM [facility] LABAlbumin4.13.9 - 4.9 g/dL06/30/2024 9:41 PM [facility] LABCalcium, Total9.78.5 - 10.2 mg/dL06/30/2024 9:41 PM [facility] LABBilirubin, Total0.70.2 - 1.3 mg/dL06/30/2024 9:41 PM EDT [facility] LABAlkaline Dqwpiubzunf8149 - 113 U/L06/30/2024 9:41 PM [facility] ALIYVV8820 - 40 U/L06/30/2024 9:41 PM [facility] VOWZYC59(H)10 - 54 U/L06/30/2024 9:41 PM EDT [facility] BETHilwwic355(H)74 - 99 mg/dL06/30/2024 9:41 PM [facility] LABComment: The [place] Diabetes Association (ADA) provides guidance for cutoff [...] Standards of Medical Care in Diabetes 2016, [place] [employer]. Diabetes Care. 2016.39(Suppl 1). JNN208 - 24 mg/dL06/30/2024 9:41 PM [facility] LAB Creatinine0.930.73 - 1.22 mg/dL06/30/2024 9:41 PM [facility] FSWPgujva830(L)136 - 144 mmol/L06/30/2024 9:41 PM [facility] LABPotassium4.53.7 - 5.1 mmol/L06/30/2024 9:41 PM [facility] PLNTfmpionf59(L)98 - 107 mmol/L06/30/2024 9:41 PM T [facility] XFHAZ96131 - 30 mmol/L06/30/2024 9:41 PM [facility] LABAnion Otf180 - 15 mmol/L06/30/2024 9:41 PM [facility] LABEstimated Glomerular Filtration Rate92>=60 mL/min/1.73m 06/30/2024 9:41 PM [facility] LABComment:Estimated Glomerular Filtration Rate (eGFR) is calculated [...] VolumeCollection TimeReceived TimeBloodBLOOD SPECIMEN / UnknownVenipuncture / Szjjkkv8106/30/2024 10:15 AM EDT06/30/2024 10:16 AM EDT Narrative Authorizing ProviderResult TypeResult StatusRose Foster MDLABORATORYFinal ResultPerforming OrganizationAddressCity/State/ZIP CodePhone Number [facility] [address] [address], * HEPATITIS C ANTIBODY IA WITH CONFIRMATION (01/05/2023 12:31 PM EDT)Component ValueRef RangeTest MethodAnalysis TimePerformed AtPathologist SignatureHep C Antibody LNBychnbbmAdxjspfl41/30/2023 10:28 AM EDTCSELECT MEDICAL [facility] LABComment:The result suggests no evidence of active infection with Hepatitis C virus. Should recent infectionbe suspected, repeat testing may be considered 4-6 weeks after this draw.Specimen (Source)Anatomical Location / Laterality Collection Method / VolumeCollection TimeReceived TimeBloodBLOOD SPECIMEN / UnknownVenipuncture / Nfxitpz6201/05/2023 12:31 PM EDT01/05/2023 12:36 PM EDT Narrative Authorizing ProviderResult TypeResult StatusRose Foster MDLABORATORYFinal ResultPerforming OrganizationAddressCity/State/ZIP CodePhone Number [facility] [address] from Last 3 Months or Most Recently Relevant to Health [place] [address] Care Teams Team MemberRelationshipSpecialtyStart DateEnd Date Coleman Luz DO [address] [place] [address] PCP - GeneralInternal Medicine01/05/23 Melinda Verduzco APRN.[facility] [address] [place] [address] ReferringOrthopedics11/24/22
--- OUTSIDE RECORDS SUMMARY | 2025-03-03 10:55 | XMS_ITS | CCD ---
Author Organization [facility] Care Team Providers Care Administrative Office Clerk Name Role Phone Pcp, No Primary Care Provider UnavailVitaliy Santoyo DO Primary Care Provider Sarai Mendez II Unavailable [phone] Jonathan Samano Unavailable Melinda Verduzco Unavailable [...] Care Provider MD Jonathan Samano Attending Provider [phone] STEPHEN Guzman Emergency Provider [phone] RASHAD Verduzco Attending Provider Jonathan Shrestha Unavailable DR VITALIY BROWER Attending Unavailable INOCENTE, DR BURKS Primary Care Unavailable INOCENTE, DR BURKS Admitting Unavailable INOCENTE, DR BURKS Primary Care Unavailable MISC, DR JERNIGAN Consulting Unavailable BALL, DR BURKS Admitting Unavailable BALL, DR BURKS Attending Unavailable BALL, DR BURKS Consulting Unavailable BALL, DR BURKS Primary Care Unavailable BALL, DR BURKS Admitting Unavailable BALL, DR BURKS Attending Unavailable BALL, DR BURKS Primary Care Unavailable BALL, DR BURKS Admitting Unavailable BALL, DR BURKS Attending Unavailable Ball, DO Vitaliy Primary Care [...] Attending Provider Sukhjinder Montesinos Unavailable Inocente, DO Burks Primary Care Provider MD Sarai Mendez II Attending Provider [phone] RASHAD Verduzco Attending Provider CHHAYA WHATLEY Referring Unavailable BALL, VITALIY E Primary Care Unavailable BALL, VITALIY E Primary Care Unavailable DAVID DWYER Attending Unavailable THERESA PRAKASH Attending UnavailTHERESA Payne Referring Unavailabl e BALL, VITALIY E Primary Care Unavailable SARAI BOOTH Attending Unavailable BALL, VITALIY E Referring Unavailable [...] Provider MD Elliott Talley Attending Provider [phone] MD Sally Alex Attending Provider Inocente DO Vitaliy E Primary Care Provider SANTOS CABRERA Attending Unavailable BallDO Burks Primary Care Provider Luba MITCHELL.Melinda RODRIGUEZ Unavailable InocenteDO Burks Primary Care Provider MD Mehrdad Mcmanus Attending Provider [phone] MD Bird Kowalski Attending Provider [phone] DO Vitaliy Brower Primary Care Provider MD [...] Attending Provider Cosmo Guzman APRN Emergency Provider [phone] Dionisio DOHERTY, Chio Moreno Attending Provider Andrea DOHERTY, Sarai Antunez Attending Provider Winnie Farris DO Emergency Provider Godwin DOHERTY, Lydia Admit Provider Lydia Connelly MD Attending Provider [phone] Mary Ann Miller RN Other Provider Unavailable Kathy Valle DO Other Provider Yazmin DOHERTY, Lala Other Provider Juan Luis DOHERTY, Nehemiah Lovett Other Provider Antonio Steele MD Other Provider [phone] Cuauhtemoc DOHERTY, Dutch Other Provider Geno Corona APRN Other Provider Tami Steele MD Other Provider Lul DOHERTY, Arnaldo Herrera Other Provider Munir Foote MD Other Provider Jose Luis [facility], Nicolle Blanco Other Provider [phone] BIRD KOWALSKI Attending Unavailable ANTONIO STEELE Referring Unavailable BALL, VITALIY E Primary Care Unavailable BIRD KOWALSKI Referring Unavailable BALL, VITALIY E Primary Care Unavailable Luba MITCHELL.ENTRY [employer]EVEL ELECTRICAL ENGINEER, Melinda Blake Unavailable Vitaliy Brower DO Primary Care Provider Antonio Steele MD Attending Provider HELADIO PINEDA Attending Unavailable BALL, VITALIY E Primary Care Unavailable HELADIO PINEDA Attending Unavailable BALL, VITALYI E Primary Care Unavailable MIRIAM, HELADIO Referring Unavailable BALL, VITALIY E Primary Care Unavailable ANTONINO PINEDAT Attending Unavailable INOCENTE, VITALIY E Primary Care Unavailable Inocente DOVitaliy Primary Care Provider Vitaliy Brower DO Attending Provider [phone] Sarai Mendez MD Attending Provider Marcela Ortiz CMA Attending Provider Unavailatul Connelly MD, Lydia Other Provider Ada Woodruff MD Attending Provider Fang Zhu MD Attending Provider Salinas Ascencio DO Admit Provider [phone] Tomy Cabello MD Attending Provider [phone] Radha Medina MD Emergency Provider Yaakov DO, Yazid Admit Provider Siomara Nuno DOzid Attending Provider [phone] Cosmo Guzman APRN Emergency Provider [phone] Vitaliy Brower DO Primary Care Provider Antonio [...] Attending Provider UnavailCasimiro Milligan PA-C Attending Provider [phone] Vitaliy Borwer DO Primary Care Provider Vitaliy Brower DO Primary Care Provider Inocente DO, Vitaliy Attending Provider [phone] Inocente DO, Vitaliy Primary Care Provider Sarai Mendez MD Attending Provider [phone] Winnie hale DO Emergency Provider Inocente DO, Vitaliy E Primary Care Provider WINNIE FARRIS Referring Unavailable BALL, VITALIY E Primary Care Unavailable COREY CORONA Consulting Unavailable GREG IRVING Attending Unavailable JOSE ANTONIO DIAS Referring Unavailable BALL, VITALIY E Primary Care Unavailable DIOGO EDGE Referring Unavailable BALL, VITALIY E Primary Care Unavailable WIKLE, VIJAYA Referring Unavailable WIKLE, VIJAYA Primary Care Unavailable Inocente DO, Vitaliy Primary Care Provider Antonio Steele MD Admit Provider Antonio Steele MD Attending Provider Jonathan Samano MD Attending Provider Marcela Ortiz CMA Attending Provider Unavaila Casimiro Barton PA-C Attending Provider Inocente LIPSCOMB, Vitaliy Attending Provider [phone] Sarai Mendez MD Attending Provider sergio LIPSCOMB, Winnie Antunez Emergency Provider [phone] Sarai Mendez II Admitting Unavailabl e Sarai Mendez II Attending Unavailabl e Ball, Vitaliy Primary Care Unavailable Antonio Steele Attending Unavailable Antonio Steele Admitting Unavailable Ball, Vitaliy Primary Care Unavailable Sarai Mendez II Attending Unavailabl e Sarai Mendez II Admitting Unavailabl e Ball, Vitaliy Primary Care Unavailable Jonathan Samano Attending Unavailable Ball, Vitaliy Primary Care Unavailable Jonathan Samano Admitting Unavailable Antonio Steele Attending Unavailable Antonio Steele Admitting Unavailable Ball, Vitaliy Primary Care Unavailable Tomy Cabello Attending Unavailable Ball, Vitaliy Primary Care Unavailable Salinas Ascencio Admitting Unavailabl e Mary Ann Miller Consulting Unavailable Mary Ann Millre Consulting Unavailable Leonard, W Thaddeus Consulting Unavailable Yazmin, Reeves Consulting Unavailable Nehemiah Mcknight Consulting Unavail able Antonio Steele Consulting Unavailable Dutch Posadas Consulting Unavailab Geno Nevarez Consulting Unavailable Steele, Tami Consulting Unavailable Lul, Arnaldo Najeeb Consulting Unavailab ron Foote, Tarek Consulting Unavailable Jose Luis Nicolle L Consulting Unavailable Yaakov, Yazid Attending Unavailable Abby, Keyshaf Consulting Unavailable [facility] Unavailable Yaakov, Yazid Admitting Unavailable GodwinNathand Attending Unavailable Salvador Connellyamad Admitting Unavailable Mischler, Mary Ann Consulting Unavailable [facility] Unavailable Mary Ann Miller Consulting Unavailable Kathy Valle Consulting Unavailable Yazmin, Reeves Consulting Unavailable Nehemiah Mcknight Consulting Unavail able Keysha Steelef Consulting Unavailable Dutch Posadas Consulting Unavailab Geno Nevarez Consulting Unavailable Steele, Tami Consulting Unavailable Lul, Arnaldo Najeeb Consulting Unavailab ron Coronadoad, Tarek Consulting Unavailable Jose Luis Nicolle L Consulting Unavailable [facility] Unavailable Cosmo Guzman Attending Unavailable Cosmo Guzman Admitting Unavailable Will Zimmerman Attending UnavailWill Chicas Admitting Unavailabl e [facility] Unavailable Sarai Mendez II Attending Unavailabl jackie [facility] Unavailable Sarai Mendez II Admitting Unavailabl Bird Peterson Attending Unavailable [facility] Unavailable Bird Kowalski Admitting Unavailable [facility] Unavailable Chio Nichole Admitting Unavailable Chio Nichole Attending Unavailable Winnie Farris Attending Unavailable [facility] Unavailable Winnie Farris Admitting Unavailable Will Zimmerman DO Emergency Provider Allergies Allergy ClassificationReported Allergen(s)Allergy TypeDate of OnsetReaction(s) Facility (20 sources)Acetaminophen / oxyCODONEDrug AllergyUnknowUniversity Health [facility] [employer] Other (20 sources)atorvastatinDrug Gnuevxj84-26-4899Nqdxdwl, Unknown ReactionB[facility] ([facility] sources)predniSONE; Translations: [PREDNISONE]Drug Mbzlrbq98-13-2080Nisdj, HeadacheBrecksville Va [facility] (20 sources)SimvastatinDrug Mjfzzjc54-57-5364MwcahmkKmpyi [employer] Other (1 source)patient allergy list reviewed by nurse or physiciaPropensity to adverse lpjytmogw56-65-8533Jzzvuus:DoneNort [employer] Other (3 sources)AcetaminophenDrug Qeiqjqy98-93-6796Ujmtuat ReactionBrecksville [facility] (3 sources)oxyCODONEDrug Mxaevmr41-12-6101Fklyqmx ReactionBrecksville Va / [facility] Medications Current Medications MedicationDrug Class(es)DatesSig (Normalized)Sig (Original)0.5 ML semaglutide 0.5 MG/ML Auto-Injector [Wegovy] (15 sources)Start: 34-78-1213Csmmy: 00-58-7762tfhukw 0.5 mL by subcutaneous injection every weekWegovy 0.25 MG/0.5ML 0.5 mL Subcutaneous weekly for 30 days Sep, ActiveAcetaminophen (20 sources)Start: 33-28-2745pwxy 1 tablet by mouth every six hours as needed acetaminophen (Tylenol) tablet 650 mgStart: 00-86-5373gibq 2 tablets by mouth every eight hours for painAcetaminophen 500 MG 2 tablets for pain Orally every 8 hrs for 30 days Med to Bed Upon Discharge DOS: 02/13/2023 Jan, Active Start: 90-85-0765mjwh 2 tablets by mouth every eight hours for painAcetaminophen 500 MG 2 tablets for pain Orally every 8 hrs for 30 days MED TO BED UPON DISCHARGE. DOS: 07/04/2021 Jun, ActiveStart: 01-29-2017 End: 78-93-2200Mhplhmxmsozii (Tylenol Arthritis Pain) 650 mg Tablet Extended Release Discontinued 1300 MG PO Twicedaily January 28, 2017 11:00pm February 13, 2023 9:43amAeroChamber Mini Chamber - (8 sources)Start: 26-31-5791Gjbjf: 01-37-4531HrdeKivvjly Mini Chamber - Use w/ Albuterol MDI inhaled every 6 hours as needed for 30 days Active allopurinol 100 mg oral tablet (20 sources)Xanthine Oxidase InhibitorStart: 68-28-6746jbqm 2 tablets by mouth once dailyStart: 95-19-2488jwmo 2 tablets by mouth onceallopurinol (ZYLOPRIM) 100 mg tablet Indications: Hyperuricemia , Idiopathic chronic gout of multiple sites without tophus Take 2 tablets by mouth every afternoon. 180 tablet 3 07/07/2024 ActiveStart: 01-03-2024 End: 84-74-6827wfhm 1 tablet by mouth once dailyAllopurinol 100 mg tablet Discontinued 0 .ROUTE .COMPLEX 90 3 January 03, 2024 1:35pm September 30, 2024 3:44pm TAKE 1 TABLET BY MOUTH EVERY DAYStart: 06-20-2021 End: 18-23-9391hhpl 1 tablet by mouth once daily in the morningAllopurinol 100 mg tablet Discontinued 100 MG PO Every morning June 19, 2021 11:00pm January 03, 2024 1:35pm gout preventionComment on above:Take 1 tablet by mouth every afternoon.Aspir-81 (20 sources)Aspir-81 ActiveAspir-81 81 MG (20 sources)take 1 tablet by mouth once dailytake 1 tablet by mouth once daily Aspir-81 81 MG 1 tablet Orally Once a day Activeaspirin 81 mg oral tablet (20 sources)Platelet Aggregation Inhibitor, Nonsteroidal Anti-inflammatory Drug Start: 61-81-7503hmir 1 tablet by mouth once dailyStart: 25-12-7787bsea 81 mg by mouth once daily81 mg, oral, Daily, First dose on Sun01/30/24 at 0900, Phase II/On Unit, Do not crush, chew, or split.Start: 01-29-2024 End: 76-15-2853bung 324 mg by mouth lrfn909 mg, oral, Once, On Sun01/29/24 at 1000, For 1 dose, PreprocedureStart: 56-03-5258tcut 1 tablet by mouth twice dailyAspirin 81 MG 1 tablet Orally BID for 35 days MED TO BED UPON DISCHARGE. DOS: 07/04/2021 Jun, ActiveStart: 01-29-2017 End: 54-39-3200qlhr 1 tablet by mouth once dailyAspirin 81 mg Tablet,Delayed Release (Dr/Ec) Discontinued 81 MG PO Daily January 28, 2017 11:00pmMa2024 2:20pm FL preventiontake 1 tablet by mouth two times weeklyaspirin 81 mg EC tablet Take 1 tablet (81 mg) by mouth 2 times a week. ActiveComment on above: Take 81 mg by mouth.atorvastatin 80 mg oral tablet (20 sources)HMG-CoA Reductase InhibitorStart: 75-72-9092hlqw 1 tablet by mouth once daily in the eveningAtorvastatin 80 mg Tablet Active 80 MG PO Every evening 30 30 September 28, 2024 11:00pm Complies with drug therapyStart: 09-19-2023 End: 09-59-4876lvem 1 tablet by mouth once daily in the eveningAtorvastatin 80 mg tablet Discontinued 0 .ROUTE .COMPLEX 90 3 July 02, 2024 5:52am September 29, 2024 3:03am TAKE 1 TABLET BY MOUTH ONCE EVERY EVENINGStart: 01-29-2017 End: 13-29-9702ulzn 1 tablet by mouth once daily at bedtimeAtorvastatin (Lipitor) 80 mg Tablet Discontinued 80 MG PO Daily at bedtime January 28, 2017 11:00pm September 19, 2023 11:53am End: 10-70-4482hlhk 1 tablet by mouth three times weeklyatorvastatin 10 mg tablet Take 10 mg by mouth 3 times a WEEK. 0 01/05/2023 Discontinued (Course of therapy completed)Comment on above:Take 10 mg by mouth 3 times a WEEK.cefadroxil 500 mg oral capsule (10 sources)Cephalosporin AntibacterialStart: 63-27-3794mbhg 1 capsule by mouth every twelve hoursCefadroxil 500 MG 1 tablet Orally every 12 hrs for 7 days Med to Bed Upon Discharge DOS: 02/13/2023 Jan, ActiveStart: 49-77-5230vtka 1 capsule by mouth every twelve hoursCefadroxil 500 MG 1 tablet Orally every 12 hrs for 7 days MED TO BED UPON DISCHARGE. DOS: Jun, 2021 Active celecoxib 200 mg oral capsule (20 sources)Nonsteroidal Anti-inflammatory DrugStart: 19-53-4008dwml 1 capsule by mouth once dailyStart: 14-66-0578yqdd 1 capsule by mouth twice dailycelecoxib (CELEBREX) 200 mg capsule Indications: Idiopathic chronic gout of multiple sites without tophus , Pseudogout involving multiple joints , Chronic pain of both knees Take 1 capsule by mouth two times a day. 180 capsule 3 09/13/2024 ActiveStart: 06-20-2021 End: 71-82-6558iebr 1 capsule by mouth once dailyCelecoxib 200 mg capsule Discontinued 200 MG PO Daily June 27, 2023 11:00pm June 28, 2023 3:15pm Start: 10-51-4155typf 1 capsule by mouth every twelve hoursCelecoxib 200 MG 1 capsule with food Orally Twice a day for 30 day(s) MED TO BED UPON DISCHARGE. DOS: 07/04/2021 11 Jun, 2021 ActiveComment on above:Take 1 capsule by mouth every afternoon.cholecalciferol 0.05 mg oral tablet (1 source)Vitamin DStart: 87-64-3726zhpi 1 tablet by mouth onceCholecalciferol (Vitamin D3) (D3 Dots) 50 mcg (2,000 unit) tablet Active 50 MCG PO every Sunday andJuly 12:00amdapagliflozin 5 mg oral tablet (20 sources)Sodium-Glucose Cotransporter 2 InhibitorStart: 01-16-2025 End: 64-41-5725tfwy 1 tablet by mouth once daily in the morningDapagliflozin Propanediol (Farxiga) 5 mg tablet Active 5 MG PO Every morning February 4:18pm Complies with drug therapyStart: 10-01-2024 End: 15-29-0513diox 1 tablet by mouth once dailyDapagliflozin Propanediol 10 mg Tablet Discontinued 10 MG PO Daily September 30, 2024 11:00pmJuly 2024 1:00pmdocusate sodium 100 mg oral capsule (1 source)Start: 95-47-0103jpnf 100 mg by mouth twice daily for rivmhmkdejty211 mg, oral, 2 times daily, First dose on Sun01/29/24 at 2100, Phase II/On Unit, Bowel Regimen - for prevention of constipation Hold for loose stoolsStart: 16-12-7378hrra 100 mg by mouth twice daily for okjnsjhvuyxl366 mg, oral, 2 times daily, First dose on Sun01/29/24 at 2100, Phase II/On Unit, Bowel Regimen - f or prevention of constipation Hold for loose stoolsdocusate sodium 50 mg / sennosides, group home 8.6 mg oral tablet (10 sources)Start: 70-73-4927kems 2 tablets by mouth every twenty-four hours Senokot S 8.6-50 MG 2 tablets Orally Once a day for 30 days Med to Bed Upon Discharge DOS: 02/13/2023 Jan, ActiveStart: 12-45-5133djue 2 tablets by mouth every twenty-four hoursSenokot S 8.6-50 MG 2 tablets Orally Once a day for 30 day(s) MED TO BED UPON DISCHARGE. DOS: 07/04/2021 Jun, Active dofetilide 0.125 mg oral capsule (20 sources)AntiarrhythmicStart: 12-12-2024 End: 38-36-6980pwmj 1 capsule by mouth every twelve hoursDofetilide 125 mcg capsule Active 125 MCG PO Every 12 hours 60 30 January 12, 2025 2:03pm Complies with drug therapyergocalciferol 1.25 mg oral capsule (20 sources)Provitamin D2 CompoundStart: 07-09-2023 End: 95-34-9956bvavaghgzjaity 50,000 unit capsule (VITAMIN D2, DRISDOL) Indications: Vitamin D deficiency (take bymouth with food twice a week, ONE CAPSULE ON SUNDAY AND ONE ON SUNDAY) FOR A TOTAL OF 10 WEEKS. Then once a week thereafter 24 capsule 1 07/07/2024 ActiveStart: 19-39-9698zfow 1 capsule by mouth every week as neededErgocalciferol 1.25 MG (26438 UT) 1 capsule Orally Once a Week for 60 days Nov, Not-Taking/PRNStart: 97-89-9441bfju 1 capsule by mouth every weekVitamin D (Ergocalciferol) 1.25 MG (89355 UT) 1 capsule Orally once weekly for 8 weeks Mar,ctiveComment on above:(take by mouth with food twice a week, ONE CAPSULE ON SUNDAY AND ONE ON SUNDAY) FOR A TOTAL OF 8 WEEKS.escitalopram 20 mg oral tablet (20 sources)Serotonin Reuptake InhibitorStart: 22-04-9688eyez 1 tablet by mouth once dailyEscitalopram Oxalate 20 mg tablet Active 0 .ROUTE .COMPLEX 90 1 December 10, 2024 7:57pm TAKE 1 TABLET BY MOUTH EVERY DAY Complies with drug therapyStart: 12-23-2023 End: 78-82-9247xwbb 1 tablet by mouth once dailyEscitalopram Oxalate 20 mg tablet Discontinued 0 .ROUTE .COMPLEX 90 1 June 14, 2024 4:03pm September 29, 2024 3:03am TAKE 1 TABLET BY MOUTH EVERY DAYStart: 06-29-2023 End: 25-38-2881nckn 1 tablet by mouth once daily at bedtimeEscitalopram Oxalate 20 mg tablet Discontinued 20 MG PO Daily at bedtime December 08, 2024 11:00pm December 10, 2024 7:57pmStart: 06-28-2023 End: 47-38-4318xetb 1 tablet by mouth once dailyEscitalopram Oxalate 10 mg tablet Discontinued 0 .ROUTE .COMPLEX 90 1 June 28, 2023 2:06pm 2023 9:36am TAKE 1 TABLET BY MOUTH EVERY DAY FOR 90 DAYSStart: 08-09-2022 End: 57-43-9621pnyb 1 tablet by mouth once daily at bedtimeEscitalopram Oxalate 10 mg tablet Discontinued 10 MG PO Daily at bedtime January 25, 2023 11:00pm June 28, 2023 2:07pm painComment on above:Take 1 tablet by mouth [...] sodium 0.15 mg oral tablet (20 sources)l-ThyroxineStart: 75-29-3551bqyx 1 tablet by mouth once daily Levothyroxine 150 mcg tablet Active 0 .ROUTE .COMPLEX 90 March 20, 2024 9:44am TAKE 1 TABLETBY MOUTH EVERY DAY Complies with drug therapyStart: 06-20-2021 End: 59-54-0960ylyi 1 tablet by mouth once daily in the morningLevothyroxine (Synthroid) 150 mcg tablet Discontinued 150 MCG PO Every morning June 19, 2021 11:00pm March 20, 2024 9:44amStart: 01-29-2017 End: 80-33-7038qwml 1 tablet by mouth once dailyLevothyroxine (Synthroid) 25 mcg Tablet Discontinued 25 MCG PO Daily January 28, 2017 11:00pm June 20, 2021 12:26pmtake 1 tablet by mouth in the morninglevothyroxine (SYNTHROID, LEVOTHROID) 200 MCG tablet Take 1 tablet (200 mcg total) by mouth in the m orning. Activetake 1 tablet by mouth once dailyLevothyroxine Sodium 150 MCG TAKE 1 TABLET BY MOUTH EVERY DAY Active End: 45-64-4009zxkl 1 tablet by mouth once dailylevothyroxine (SYNTHROID) 175 mcg tablet Take 175 mcg by mouth once daily. 0 01/05/2023 Discontinued (Course of therapy completed)take 1 tablet by mouth every twenty-four hoursComment on above:Take 1 tablet by mouth every afternoon.Take 175 mcg by mouth once daily. Magic Mouthwash (5 sources)Magic Mouthwash Activemagnesium oxide 400 mg oral tablet (20 sources)Start: 23-82-9029jpdj 1 tablet by mouth once dailyComment on above: Take 400 mg by mouth.24 hr metoprolol succinate 50 mg extended release oral tablet (20 sources)beta-Adrenergic BlockerStart: 03-20-2024 End: 02-96-6038xhre 1 tablet by mouth once dailyStart: 87-96-3857ucpz 1 tablet by mouth once dailyMetoprolol Succinate 50 mg tablet extended release 24 hr Active 0 .ROUTE .COMPLEX March 10:45am TAKE 1 TABLET BY MOUTH EVERY DAYStart: 71-88-7604qupn 1 tablet by mouth once dailyMetoprolol Succinate 50 mg tablet extended release 24 hr Active 0 .ROUTE .COMPLEX March 20, 2024 9:45am TAKE 1 TABLET BY MOUTH EVERY DAYStart: 97-28-0374svml 1 tablet by mouth every hourmetoprolol succinate ER (TOPROL XL) 50 mg 24 hr tablet Take 1 tablet by mouth every afternoon. 12/29/2022 ActiveStart: 02-09-2021 End: 00-32-8021dewz 1 tablet by mouth once daily in the morningMetoprolol Succinate 50 mg tablet extended release 24 hr Discontinued 50 MG PO Every morning June 19, 2021 11:00pm March 20, 2024 9:45amStart: 01-29-2017 End: 06-96-5925afcc 1 tablet by mouth once dailyMetoprolol Succinate (Toprol Xl) 25 mg Tablet Extended Release 24 Hr Discontinued 25 MG PO Daily January 28, 2017 11:00pm June 20, 2021 12:27pmMetoprolol Tartrate 25 MG (Prior Auth: Rx Ref#:[id number]) Oral for 90 ActiveComment on above:Take 1 tablet by mouth every afternoon.morphine sulfate 15 mg extended release oral tablet (10 sources)Opioid AgonistStart: 73-65-3654fidl 1 tablet by mouth every twelve hours for painMorphine Sulfate ER 15 MG 1 tablet for breakthrough pain only Orally every 12 hrs for 5 days Med toBed Upon Discharge DOS: 02/13/2023 Jan, ActiveStart: 10-31-5844imbt 1 tablet by mouth every twelve hours for pain Morphine Sulfate ER 15 MG 1 tablet for breakthrough pain only Orally every 12 hrs for 5 days MED TOBED UPON DISCHARGE. DOS: 07/04/2021 Jun, Active ondansetron 8 mg oral tablet (12 sources)Serotonin-3 Receptor AntagonistStart: 34-68-8178vpso 1 tablet by mouth three times daily as needed for nauseaOndansetron HCl 8 MG 1 tablet as needed for nausea Orally Three times a day for 10 days Med to Bed Upon Discharge DOS: 02/13/2023 Jan, ActiveStart: 06-36-2620zwhr 1 tablet by mouth three times daily as needed for nauseaOndansetron HCl 8 MG 1 tablet as needed for nausea Orally TID for 10 days MED TO BED UPON DISCHARGE. DOS: 07/04/2021 Jun, Activeondansetron ODT (Zofran-ODT) disintegrating tablet 4 mg (1 source)Start: 94-22-6789gapu 1 tablet by mouth every eight hours as needed ondansetron ODT (Zofran-ODT) disintegrating tablet 4 mgoxyCODONE hydrochloride 5 mg oral tablet (10 sources)Opioid AgonistStart: 75-19-9403fekx 1 tablet by mouth every four hours as needed for painoxyCODONE HCl 5 MG 1 tablet as needed for pain Orally every 4 hrs for 10 days Med to Bed Upon Discharge DOS: 02/13/2023 Jan, ActiveStart: 46-83-6788zsjb 1 tablet by mouth every four hours as needed for painoxyCODONE HCl 5 MG 1 tablet as needed for pain Orally every 4 hrs for 10 days MED TO BED UPON DISCHARGE. DOS: 07/04/2021 Jun, Activepantoprazole 40 mg delayed release oral tablet (20 sources)Proton Pump InhibitorStart: 30-08-6225tqlv 1 tablet by mouth once dailyStart: 07-01-2024 End: 33-80-4791annh 1 tablet by mouth once dailyPantoprazole 40 mg tablet,delayed release (DR/EC) Discontinued 40 MG PO Daily 90 90 1 June 30, 2024 11:00pm January 03, 2025 7:37amStart: 28-77-8606pigorqnnrmki (ProtoNix) EC tablet 40 mgStart: 40-71-3373bkqy 1 tablet by mouth every twenty-four hours Protonix 20 MG 1 tablet Orally Once a day for 30 days Jan, Active paxlovid (300/100) 20 x 150 mg & 10 x 100mg tablet therapy pack (2 sources)Start: 43-96-3037Jdtwoaio (300/100) 20 x 150 MG & 10 [...] 10 mL of Normal Saline.polyethylene glycol 3350 42210 mg powder for oral solution (10 sources)Osmotic LaxativeStart: 54-00-4277ErriQot 17 GM 1 packet mixed with 8 ounces of fluid Orally Once a day for 7 days Med to Bed Upon Discharge DOS: 02/13/2023 Jan, ActiveStart: 06-81-7902TxtvXbe 17 GM 1 packet mixed with 8 ounces of fluid Orally Once a day for 7 days MED TO BED UPON DISCHARGE. DOS: 07/04/2021 Jun, ActivepredniSONE 20 mg oral tablet (13 sources)Start: 37-75-9381ckua 1 tablet by mouth once dailypredniSONE 20 MG 1 tablet Orally Daily w/ food for 7 days Jul, ActivepredniSONE Active rivaroxaban 10 mg oral tablet (16 sources)Factor Xa InhibitorStart: 01-31-2023 End: 96-16-5042zwbm 1 tablet by mouth every twenty-four hoursXarelto 10 MG 1 tablet with food Orally Once a day for 35 days Med to Bed Upon Discharge DOS: 02/13/2023 Jan, ActiveXarelto ActiveComment on above:TAKE 1 TABLET BY MOUTH ONCE A DAY WITH FOODspironolactone 25 mg oral tablet (16 sources)Aldosterone AntagonistStart: 15-23-1679xvaEUSen hydrochloride 50 mg oral tablet (11 sources)Opioid AgonistStart: 42-84-3433skze 1 tablet by mouth every six hours as adcmpi85 mg, oral, Every 6 hours PRN, pain moderate (4-6), first line, Starting on Sun01/29/24 at 1458, Phase II/On Unit, If ordered PRN for pain, nurse is permitted to administer this medication for higher pain scores based on patient preference? YesStart: 78-02-9306mcis 1 tablet by mouth every six hours as needed for paintraMADol HCl 50 MG 1 tablet as needed for pain Orally every 6 hrs for 10 days Med to Bed Upon Discharge DOS: 02/13/2023 Jan, Active Start: 45-47-9512kbgb 1 tablet by mouth every six hours [...] Nucleoside Analog DNA Polymerase InhibitorStart: 12-24-2023 End: 35-50-1628isqd 1 tablet by mouth once dailyStart: 06-20-2021 End: 20-78-8098gtgj 1 tablet by mouth once daily in the morningValacyclovir 500 mg tablet Discontinued 500 MG PO Every morning June 19, 2021 11:00pm December 24, 2023 12:30pm cold soresComment on above:Take 1 tablet by mouth every afternoon.valsartan 40 mg oral tablet (20 sources)Angiotensin 2 Receptor BlockerStart: 11-19-2024 End: 60-33-5024iurl 1 tablet by mouth once dailyvalsartan (Diovan) 40 mg tablet Indications: Cardiomyopathy, ischemic Take 1 tablet (40 mg) by mouth once daily. 90 tablet 3 11/19/2024 11/19/2025 ActiveStart: 09-29-2024 End: 49-98-7619adre 1 tablet by mouth once dailyValsartan 40 mg Tablet Discontinued 40 MG PO Daily 30 07 04September 28, 2024 11:00pm October 08, 2024 1 :05pmStart: 09-08-2024 End: 51-20-0210Qldvynavy 160 mg Tablet Discontinued 80 MG PO Daily September 07, 2024 11:00pm September 09, 2024 9:12amStart: 08-13-2024 End: 90-43-4452easx 0.5 tablet by mouth in the morningvalsartan (Diovan) 160 mg tablet Take 0.5 tablets (80 mg) by mouth early in the morning.. 08/13/2024 11/19/2024 Discontinued (Discontinued by another clinician)Start: 08-13-2024 End: 97-69-6609uoev 1 tablet by mouth once dailyValsartan 160 mg Tablet Discontinued 160 MG PO Daily 30 0 August 12, 2024 11:00pm September 08, 2024 10:58am Completed/Discontinued Medications MedicationDrug Class(es)DatesSig (Normalized)Sig (Original)acetaminophen 325 mg / oxyCODONE hydrochloride 5 mg oral tablet (20 sources)Opioid AgonistStart: 05-22-2022 End: 03-61-8329fdfa 1 tablet by mouth every eight hours as needed for pain Oxycodone-Acetaminophen (Percocet) 5-325 mg tablet Discontinued 1 TAB PO Q8H as needed for pain 10 3 0 May 22, 2022 January 26, 2023 10:02am Contusion of left shoulder Contusion of left shoulder, initial [id number] 200 actuat albuterol 0.09 mg/actuat metered dose inhaler (20 sources)beta2-Adrenergic AgonistStart: 06-28-2023 End: 70-89-7256cxem 1 puff(s) by inhalation every six hoursAlbuterol Sulfate 90 mcg/actuation HFA aerosol inhaler Discontinued 2 PUFF INHALATION Every 6 hours June 27, 2023 11:00pm August 02, 2023 8:18amStart: 02-67-2763lexs 2 puff(s) by mouth every six hoursalbuterol HFA (PROVENTIL HFA, VENTOLIN HFA) 90 mcg/actuation inhaler inhale 2 puffs by mouth every 6 hours 09/16/2022 Active Start: 92-06-8118wdsi 2 puff(s) by inhalation every six hoursAlbuterol Sulfate HFA 108 (90 Base) MCG/ACT 2 puffs Inhalation every 6 hours for 30 days August, ActiveStart: 30-25-0708ijrq 2 puff(s) by mouth every six hoursAlbuterol Sulfate HFA 108 (90 Base) MCG/ACT INHALE 2 PUFFS BY MOUTH EVERY 6 HOURS for 25 ActiveComment on above:inhale 2 puffs by mouth every 6 hoursALPRAZolam 0.5 mg oral tablet (20 sources)BenzodiazepineStart: 12-12-2022 End: 65-86-4197ktrb 1 tablet by mouth once daily at bedtimeAlprazolam 0.5 mg tablet Discontinued 0.5 MG PO Daily at bedtime 90 90 July 01, 2024 12:57pm January 15, 2025 4:08pm Generalized anxiety disorder Generalized anxiety disorderStart: 14-37-7985BHWONMvnxe 0.5 MG TAKE 1 TABLET BY MOUTH EVERY DAY AT BEDTIME Orally Once A Day for 90 days ActiveStart: 88-49-7868yusr 1 tablet by mouth once daily at bedtimeALPRAZolam 0.5 MG TAKE 1 TABLET BY MOUTH EVERY DAY AT BEDTIME for 30 Apr, ActiveStart: 10-25-2012 End: 88-57-1069thqj 1 tablet by mouth once daily at bedtimeAlprazolam (Xanax) 0.25 mg Tablet Discontinued 0.25 MG PO Daily at bedtime January 28, 2017 11:00pm June 04, 2023 12:08pm insomniaComment on above:Take 0.5 mg by mouth daily at bedtime.Take 1 tablet by mouth at bedtime as needed.amoxicillin 500 mg oral capsule (20 sources)Penicillin-class AntibacterialStart: 04-07-2024 End: 51-72-3869Ynepolrxnwg 500 mg capsule Discontinued 2000 MG PO As Directed April 07, 2024 12:00am August 11, 2024 1:39pm SBE prophylaxisStart: 12-55-2233Agaydvfipfb 500 MG 6 po 1 hour prior to dental and 3 po 6 hours after dental Orally as directed for1 day Dec, Activeamoxicillin 875 mg / clavulanate 125 mg oral tablet (20 sources)Penicillin-class AntibacterialStart: 07-30-2024 End: 51-02-9782eslb 1 tablet by mouth every twelve hoursAmoxicillin-Pot Clavulanate 875-125 mg tablet Discontinued 1 TAB PO Every 12 hours July 29, 2024 11:00pm August 11, 2024 1:39pmStart: 09-01-2023 End: 03-94-5755mobo 1 tablet by mouth twice dailyAmoxicillin-Pot Clavulanate 875-125 mg tablet Discontinued 1 TAB PO Twice daily 14 7 0 September 01, 2023 9:30am November 19, 2023 1:23pmapixaban 5 mg oral tablet (20 sources)Factor Xa InhibitorStart: 11-19-2024 End: 22-98-3156fssu 1 tablet by mouth twice dailyApixaban (Eliquis) 5 mg tablet Discontinued 5 MG PO Twice daily December 08, 2024 11:00pm 2024 12:32pmStart: 08-13-2024 End: 16-51-2266mqmx 1 tablet by mouth every twelve hoursEliquis 5 mg tablet Take 1 tablet (5 mg) by mouth every 12 hours. 08/13/2024 11/19/2024 Discontinued (Discontinued by another clinician)Start: 08-13-2024 End: 13-64-0688rpen 1 tablet by mouth twice dailyApixaban (Eliquis) 5 mg Tablet Discontinued 5 MG PO Twice daily 60 30 0 August 12, 2024 11:00pm September 29, 2024 3:03amStart: 12-19-2023 End: 78-26-9166wcep 1 tablet by mouth once daily at bedtimeApixaban (Eliquis) 5 mg tablet Discontinued 0 .ROUTE .COMPLEX 60 December 19, 2023 8:55pm Arsh ellison 2023 11:15am TAKE 1 TABLET BY MOUTH EVERY MORNING AND BEFORE BEDTIME FOR 30 DAYSStart: 05-18-2023 End: 29-61-8416jvza 1 tablet by mouth twice dailyApixaban 5 mg tablet Discontinued 5 MG PO Twice daily June 27, 2023 11:00pm December 19, 2023 8:55pmStart: 05-18-2023 End: 02-65-3838axmq 1 tablet by mouth once daily at [...] oral tablet (1 source)beta-Adrenergic BlockerStart: 10-25-2012 End: 30-65-0507qgrh 1 tablet by mouth once dailyatenolol 25 mg tablet Take 1 tablet by mouth once daily. 0 10/25/2012 01/05/2023 Discontinued (Course of therapy completed)Comment on above:Take 1 tablet by mouth once daily.benzonatate 200 mg oral capsule (20 sources)Non-narcotic AntitussiveStart: 05-14-2024 End: 89-46-8646wrqf 1 capsule by mouth three times dailyBenzonatate 200 mg capsule Discontinued 200 MG PO Three times daily 30 10 1 May 14, 2024 12:00am August 01, 2024 10:12amceFAZolin 2000 mg injection (1 source)Cephalosporin AntibacterialStart: 01-29-2024 [...] tablet (20 sources)P2Y12 Platelet InhibitorStart: 08-13-2024 End: 32-04-0056ltny 1 tablet by mouth once dailyClopidogrel 75 mg Tablet Discontinued 75 MG PO Daily 30 30 0 August 12, 2024 11:00pm September 29, 2024 3:03am Start: 01-30-2024 End: 15-12-4239Zglpavismmz 75 mg tablet Discontinued MG PO February 18, 2024 12:00am August 01, 2024 10:12am End: 77-60-3471hikd 1 tablet by mouth once dailyclopidogrel (PLAVIX) 75 mg ORAL tablet Take one(1) tablet daily. 0 03/05/2023 Discontinued (Course of therapy completed)Comment on above:Take one(1) tablet daily.codeine phosphate 2 mg/ml / guaiFENesin 20 mg/ml oral solution (20 sources)Opioid AgonistStart: 03-17-2024 End: 65-59-9667sjbs 1 mL by mouth every six hours as needed for coughCodeine- Guaifenesin 10-100 mg/5 mL liquid Discontinued 10 ML PO Every 6 hours as needed for cough 200 5 0 March 17, 2024 12:00am August 01, 2024 10:12am Cough Cough, unspecifiedStart: 03-17-2024 End: 72-97-2251ppdw 1 mL by mouth every six hours as needed for coughCodeine- Guaifenesin 10-100 mg/5 mL liquid Discontinued 10 ML PO Every 6 hours as needed for cough 200 5 March 17, 2024 1:00am August 01, 2024 11:12amStart: 94-71-2577kewf 1 mL by mouth every six hours as needed for coughCodeine- Guaifenesin 10-100 mg/5 mL liquid Active 10 ML PO Every 6 hours as needed for cough 200 5 March 17, 2024 1:00amStart: 33-04-7143fxgp 1 mL by mouth every six hours as needed for coughCodeine-Guaifenesin 10-100 mg/5 mL liquid Active 10 ML PO Every 6 hours as needed for cough 200 5 March 17, 2024 12:00amStart: 03-51-8798rdtx 10 mL by mouth once at bedtime as needed for coughguaiFENesin- Codeine 100-10 MG/5ML 10 mL as needed Orally q HS as needed for cough for 7 days August, Activecolchicine 0.6 mg oral capsule (20 sources)Start: 10-08-2024 End: 47-92-8272ucuh 1 capsule by mouth once dailyColchicine 0.6 mg capsule Discontinued 0.6 MG PO Daily October 07, 2024 11:00pm October 08, 2024 1:42pmStart: 08-02-2023 End: 52-86-1082saqd 1 capsule by mouth every other dayColchicine 0.6 mg capsule Discontinued 0.6 MG PO .every other day August 01, 2023 11:00pm 2023 8:21amStart: 95-19-3375nlyd 0.6 mg by mouth once dailyColchicine Active 0.6 MG PO Daily August 02, 2023 12:00amStart: 07-05-2023 End: 98-61-4442hxci 1 tablet by mouth twice dailycolchicine 0.6 mg tablet Indications: Idiopathic chronic gout of multiple sites without tophus Fepi8mzc by mouth up to twice a day [...] mg oral tablet (20 sources)BenzodiazepineStart: 06-28-2023 End: 88-34-9650qarw 1 tablet by mouth once dailyDiazepam 5 mg tablet Discontinued 5 MG PO Daily June 27, 2023 11:00pm August 02, 2023 8:17am Start: 63-34-8955Hqepef 5 MG take 1 tablet 1/2 hour prior to MRI . May repeat if needed. Orally Jun, Activetake 1 tablet by mouth every twenty-four hoursdiazePAM 5 MG 1 tablet as needed Orally Once a day Activediclofenac sodium 0.01 mg/mg topical gel (20 sources)Nonsteroidal Anti-inflammatory DrugStart: 08-06-2024 End: 45-39-5429Pcgssztuzi Sodium 1 % gel Discontinued 2 GM TOPICAL .4-5 times a day as needed for knee pain 05 08 2April 2024 11:00pm September 29, 2024 3:03amStart: 96-73-8423Rxqqochssu Sodium 1 % gel Active 2 GM TOPICAL .4-5 times a day as needed for knee pain 05 08August 06, 2024 12:00amdoxycycline hyclate 100 mg oral capsule (20 sources)Tetracycline-class DrugStart: 01-12-2025 End: 04-51-8572azyy 1 capsule by mouth twice dailyDoxycycline Hyclate 100 mg capsule Discontinued 100 MG PO Twice daily 20 10 0 January 11, 2025 11:00pm February 02, 2025 12:59pmStart: 12-26-2024 End: 10-40-2905kscn 1 capsule by mouth twice dailyDoxycycline Hyclate 100 mg capsule Discontinued 100 MG PO Twice daily 20 December 25, 2024 11:00pm January 07, 2025 12:32pmStart: 09-12-2024 End: 44-79-0554zftb 1 capsule by mouth twice dailyDoxycycline Hyclate 100 mg capsule Discontinued 100 MG PO Twice daily September 11, 2024 11:00pm September 29, 2024 3:03amStart: 03-17-2024 End: 22-23-8241kbov 1 capsule by mouth twice dailyDoxycycline Hyclate 100 mg capsule Discontinued 100 MG PO Twice daily May 02, 2024 2:47pm August 01, 2024 10:12amStart: 03-42-4616vuer 1 capsule by mouth every twelve hours Doxycycline Hyclate 100 MG 1 capsule Orally Twice a day for 7 days Mar, ActiveStart: 85-06-5468sgls 1 tablet by mouth every twelve hoursDoxycycline Hyclate 100 MG 1 tablet Orally Twice a day for 14 days Feb, ActiveStart: 36-48-7846oadf 1 capsule by mouth twice dailyDoxycycline Hyclate 100 MG 1 capsule Orally twice daily for 10 days Jan, ActiveStart: 22-43-7791uhfi 1 capsule by mouth twice dailyDoxycycline Hyclate 100 MG 1 capsule Orally twice daily for 7 days August, ActiveEPINEPHrine 0.01 mg/ml / lidocaine hydrochloride 20 mg/ml injectable solution (1 source)Antiarrhythmic, alpha-Adrenergic Agonist, beta-Adrenergic Agonist, Catecholamine, Amide Local AnestheticStart: 01-29-2024 End: mL, subcutaneous, Once as needed, to oozing access site, Starting on Sun01/29/24 at 1458, For 1 dose, Phase II/On Unit, Inject at site of bleedhydroCHLOROthiazide 25 mg / spironolactone 25 mg oral tablet (20 sources)Thiazide Diuretic, Aldosterone AntagonistStart: 09-08-2024 End: 37-37-2098qvpo 1 tablet by mouth once dailySpironolacton-Hydrochlorothiaz 25-25 mg tablet Discontinued 1 TAB PO Daily September 07, 2024 11:00pm October 01, 2024 11:06amStart: 82-85-4640beun 1 tablet by mouth once daily in the morning spironolacton-hydroCHLOROthiaz (ALDACTAZIDE) 25-25 mg per tablet TAKE 1 TABLET BY MOUTH EVERY DAY IN THE MORNING 90 tablet 1 04/08/2024 ActiveStart: 01-02-2023 End: 88-45-6709qcwl 1 tablet by mouth once daily before mealtimespironolacton- hydrochlorothiaz (Aldactazide) 25-25 mg tablet Take 1 tablet (25 mg) by mouth once daily in the morning. Take before meals. 01/02/2023 ActiveComment on above: Take 1 tablet by mouth every morning.hydroCHLOROthiazide 25 mg / triamterene 37.5 mg oral capsule (20 sources)Potassium-sparing Diuretic, Thiazide DiureticStart: 06-20-2021 End: 18-71-6983hchz 1 capsule by mouth once daily in the morningTriamterene- Hydrochlorothiazid 37.5-25 mg capsule Discontinued 1 CAP PO Every morning June 19, 2021 11:00pm June 28, 2023 3:16pm Meniere's diseasetake 1 capsule by mouth every [...] (20 sources)Angiotensin 2 Receptor BlockerStart: 06-20-2021 End: 89-84-6486rhpt 1 tablet by mouth once daily in the morningIrbesartan 150 mg tablet Discontinued 150 MG PO Every morning June 19, 2021 11:00pm June 28, 2023 3:16pm htn24 hr isosorbide mononitrate 30 mg extended release oral tablet (16 sources)Nitrate VasodilatorStart: 09-29-2024 End: 49-79-3986xgyv 1 tablet by mouth once daily in the morning, then take 1 tablet by mouth every twenty-four hoursIsosorbide Mononitrate 30 mg Tablet Extended Release 24 Hr Discontinued 30 MG PO Every morning 30 30 September 28, 2024 11:00pm January 07, 2025 12:33pmlisinopril 10 mg oral tablet (20 sources)Angiotensin Converting Enzyme InhibitorStart: 01-29-2017 End: 78-99-0770kfim 1 tablet by mouth once dailyLisinopril 10 mg Tablet Discontinued 10 MG PO Daily January 28, 2017 11:00pm June 20, 2021 12:24pm take 1 tablet by mouth every twenty-four hoursLisinopril 20 MG 1 tablet Orally Once a day Activemeloxicam 15 mg oral tablet (20 sources)Nonsteroidal Anti-inflammatory DrugStart: 08-06-2024 End: 71-33-3669goow 1 tablet by mouth once dailyMeloxicam 15 mg tablet Discontinued 15 MG PO daily 30 September 01, 2024 11:00pm September 08, 2024 10: 58amStart: 11-17-2013 End: 46-88-5816ongq 1 tablet by mouth once dailymeloxicam 7.5 mg tablet Take 1 tablet by mouth once daily. 30 tablet 1 11/17/2013 03/05/2023 Discontinued (Course of therapy completed)Comment on above:Take 1 tablet by mouth once daily. methylPREDNISolone 8 mg oral tablet (20 sources)CorticosteroidStart: 10-08-2024 End: 48-20-0586ewmm 4 mg by mouth once dailyMethylprednisolone (Medrol) 8 mg tablet Discontinued 4 MG PO Daily October 07, 2024 11:00pm January 12, 2025 1:27pmStart: 54-10-9053kiln 1 tablet by mouth once dailyStart: 09-08-2024 End: 92-25-9926qrtf 1 tablet by mouth twice dailyMethylprednisolone 4 mg tablet Discontinued 4 MG PO Twice daily September 07, 2024 11:00pm September 09, 2024 9:10am Start: 03-23-2024 End: 25-82-7125ihwm 1 tablet by mouth twice dailyMethylprednisolone 4 mg tablet Discontinued 0 .ROUTE .COMPLEX 60 2 March 23, 2024 9:17am August 11, 2024 2:23pm TAKE 1 TABLET BY MOUTH TWICE A DAY FOR 30 DAYSStart: 03-23-2024 End: 95-13-3700fgcm 1 tablet by mouth twice dailyMethylprednisolone 4 mg tablet Discontinued 4 MG PO Twice daily 60 30 5 March 23, 2024 12:00amDecember 2023 9:17amStart: 12-15-2023 End: 04-42-2699eytm 1 tablet by mouth once dailyMethylprednisolone 4 mg tablet Discontinued 4 MG PO Daily August 10, 2024 11:00pm August 19, 2024 3:09pmStart: 09-05-2023 End: 39-19-0186ktrxutAJIBQIObvxkz (MEDROL) 4 mg Indications: Elevated sed rate , Elevated C-reactive protein (CRP), PMR (polymyalgia rheumatica) (HCC) Day 1=6tabs with food, Day 2=5tabs, Day 3=4tabs, Day 4=3tabs, Day 5=2tabs, Day 6=1tab, No NSAIDs on med 21 tablet 1 09/05/2023 12/13/2023 DiscontinuedStart: 07-05-2023 End: 15-17-8607oxzs 1 tablet by mouth twice dailyMethylprednisolone (Medrol) 4 mg tablet Discontinued 4 MG PO Twice daily July 31, 2023 11:00pm December 20, 2023 1:53pmStart: 92-80-2642udsl 2 tablets by mouth once daily methylPREDNISolone (Medrol) 4 mg tablet Take 2 tablets (8 mg) by mouth once daily. 07/05/2023 ActiveStart: 07-05-2023 End: 57-69-2958zowz 1 tablet by mouth every other dayMethylprednisolone (Medrol) 4 mg tablet Active 4 MG PO Q2D August 01, 2023 12:00amStart: 06-28-2023 methylPREDNISolone (MEDROL) 4 mg Indications: PMR (polymyalgia rheumatica) (HCC) , Elevated sed rate , Elevated C-reactive protein (CRP) ALTERNATE 1 TABLET AND 1/2 TABLET BY MOUTH EVERY OTHER DAY 30 tablet 0 06/28/2023 ActiveStart: 50-89-6677qovocaNHVDVMFxmwet (MEDROL) 2 mg tablet Indications: PMR (polymyalgia rheumatica) (HCC) , Elevated sed rate , Elevated C-reactive protein (CRP) Alternate 4mg and 2mg every other day 60 tablet 1 03/05/2023 ActiveStart: 11-23-2022 End: 82-36-8933vaic 1 tablet by mouth once daily in the morning Methylprednisolone 4 mg tablet Discontinued 4 MG PO Every morning January 25, 2023 11:00pm June 06, 2023 1:35pmtake 1 tablet by mouth once daily methylPREDNISolone [...] (20 sources)RNA Synthetase Inhibitor AntibacterialStart: 12-26-2024 End: 16-74-9695Evjkmmgdr 2 % ointment Discontinued 1 APPLIC TOPICAL Twice daily December 25, 2024 11:00pm January 07, 2025 12:33pmStart: 06-28-2023 End: 31-29-6905Wzgccmfhb 2 % ointment Discontinued 1 APPLIC TOPICAL Twice daily June 27, 2023 11:00pm August 02, 2023 8:18amStart: 48-41-4383Gmwrfxhpz 2 % 1 application Externally Twice a day for 10 days Jan, Activenitroglycerin 0.4 mg sublingual tablet (16 sources)Nitrate VasodilatorStart: 09-29-2024 End: 61-87-2010Qrqzemzqpsoap 0.4 mg Tablet, Sublingual Discontinued 0.4 MG SUBLINGUAL Q5M as needed for Chest Pain25 30 3 September 28, 2024 11:00pm February 02, 2025 1:00pmomeprazole 40 mg delayed release oral capsule (20 sources)Proton Pump InhibitorStart: 07-01-2024 End: 77-90-5699cgdr 1 capsule by mouth once dailyOmeprazole 40 mg capsule,delayed release(DR/EC) Discontinued 40 MG PO Daily 90 90 0 June 30, 2024 11:00pm July 01, 2024 3:31pmtake 1 capsule by mouth once dailyOmeprazole 40 MG 1 capsule 30 minutes before morning meal Orally Once a day Active Semaglutide (10 sources)Start: 01-14-2025 End: 31-87-6072awswvv 0.25 mg by subcutaneous injection every week, then inject 0.5 mg by subcutaneous injection every weekSemaglutide (Ozempic) 0.25 mg or 0.5 mg (2 mg/3 mL) pen injector Discontinued 0 SUBCUT every week 328 January 14, 2025 11:50am January 16, 2025 8:00am subcutaneously every week; 0.25mg SC weekly x 4 then increase to 0.5mg SC weeklyStart: 01-14-2025 End: 33-56-3781ecraan 0.25 mg by subcutaneous injection every week, then inject 0.5 mg by subcutaneous injection every weekSemaglutide (Ozempic) 0.25 mg or 0.5 mg (2 mg/3 mL) pen injector Discontinued 0 SUBCUT every week 328 January 14, 2025 12:50pm January 16, 2025 9:00am subcutaneously every week; 0.25mg SC weekly x 4 then increase to 0.5mg SC weeklyStart: 01-12-2025 End: 75-88-0375egqeme 0.25 mg by subcutaneous injection every week, then inject 0.5 mg by subcutaneous injection every weekSemaglutide (Ozempic) 0.25 mg or 0.5 mg (2 mg/3 mL) pen injector Discontinued 0 SUBCUT every week 328 January 11, 2025 11:00pm January 14, 2025 11:50am subcutaneously every week; 0.25mg SC weekly x 4 then increase to 0.5mg SC weeklyStart: 01-12-2025 End: 46-16-3998cjspah 0.25 mg by subcutaneous injection every week, then inject 0.5 mg by subcutaneous injection every weekSemaglutide (Ozempic) 0.25 mg or 0.5 mg (2 mg/3 mL) pen injector Discontinued 0 SUBCUT every week 328 1 January 12, 2025 12:00am January 14, 2025 12:50pm subcutaneously every week; 0.25mg SC weekly x 4 then increase to 0.5mg SC weeklysildenafil 100 mg oral tablet (20 sources)Phosphodiesterase 5 InhibitorStart: 06-28-2023 End: 39-90-5564mscl 1 tablet by mouth once daily as neededSildenafil 100 mg tablet Discontinued 100 MG PO Daily as needed for sexual activity June 27, 2023 11:00pm August 11, 2024 1:41pmStart: 37-10-1922yreo 1 tablet by mouth once daily as neededSildenafil Citrate 100 MG 1 tablet as needed Orally Once a day as needed for 30 days Sep, ActiveSod Picosulf-Mag Ox-Citric Ac (20 sources)Start: 12-06-2023 End: 51-61-5674pddi 1 mL by mouth once daily in the morningSod Picosulf-Mag Ox- Citric Ac (Clenpiq) 10 mg-3.5 gram- 12 gram/175 mL solution Discontinued 175 ML PO Every morning 350 1 0 December 05, 2023 11:00pm December 31, 2023 9:38am Follow instructions given by officeStart: 12-06-2023 End: 10-15-3663tszf 1 mL by mouth once daily in the morningSod Picosulf-Mag Ox- Citric Ac (Clenpiq) 10 mg-3.5 gram- 12 gram/175 mL solution Discontinued 175 ML PO Every morning 350 1 0 December 06, 2023 12:00am December 31, 2023 10:38am Follow instructionsgiven by officeStart: 12-06-2023 End: 58-38-7665zxcj 1 mL by mouth once daily in the morningSod Picosulf-Mag Ox- Citric Ac (Clenpiq) 10 mg-3.5 gram- 12 gram/175 mL solution Discontinued 175 ML PO Every morning 350 1 December 05, 2023 11:00pm December 31, 2023 9:38am Follow instructions given by officeStart: 12-06-2023 End: 23-22-5860oivj 1 mL by mouth once daily in the morningSod Picosulf-Mag Ox- Citric Ac (Clenpiq) 10 mg-3.5 gram- 12 gram/175 mL solution Discontinued 175 ML PO Every morning 350 1 December 06, 2023 12:00am December 31, 2023 10:38am Follow instructions given by officetriamcinolone acetonide 40 mg/ml injectable suspension (20 sources)CorticosteroidStart: 97-12-9279Mblnsiq-40 August, 60 mgStart: 41-53-8588Sybqloi-40 Feb, 40 mgStart: 23-59-1155Zhbzf: 23-64-6014Jfwzv: 06-31-9532Kymguon -40 mg May, 40 mgStart: 39-08-3898Rvlaw: 05-07-2020 Kenalog -40 mg Apr, 40 mgStart: 51-04-6624Xofxv: 48-07-4314Wxekafo -40 mg Oct, 40 mgStart: 56-67-1299Xilli: 90-46-7433Ohxddvd -40 mg May, 10 mgStart: 88-96-8310Bitwc: 09-33-4773Hksjfxt -40 mg Mar, 40 mg Start: 82-83-4216Mthwo: 49-77-4833Hyjiayl -40 mg Apr,Start: 05-23-2016 Start: 04-79-7459Zbgrksj -40 mg May, Problems Active Problems Problem ClassificationProblemDateDocumented DateEpisodic/ChronicAbdominal pain (20 sources)Indigestion; Translations: [Epigastric pain]Onset: 07-10-2016 58-24-2025JdtqwfpyLqvhc bronchitis (20 sources)Acute bronchitis due to other specified organisms; Translations: [Acute bronchitis]Onset: 72-63-0711YwdgavqzQtyel posthemorrhagic anemia (1 source)Acute posthemorrhagic anemiaEpisodicAnxiety disorders (20 sources)Generalized anxiety disorder; Translations: [Generalized anxiety disorder]21-19-1544CgemsbdTxbkyv; peripheral; and visceral artery aneurysms (15 sources)Aortic root dilatation; Translations: [Thoracic aortic ectasia] Onset: [id number] and vision defects (1 source)Visual impairment; Translations: [Unspecified visual loss]Chronic Cardiac dysrhythmias (20 sources)Persistent atrial fibrillation; Translations: [Other persistent atrial fibrillation]Onset: 04-18-2023 Resolved: [id number] on above:d/t medication from covid d/t medication from COVID,Watchman 01/2024Watchman 01/2024s/p LAAO procedure - 01/2024,Echo: LVEF 45%, CHARISSA, normal RV size/function - 08/2024,DCCV: 09/2024s/p LAAO procedure - 01/2024,Echo: LVEF 45%, CHARISSA, normal RV size/function - 08/2024,DCCV: 09/2024, hronic ulcer of skin (13 sources)Non-pressure chronic ulcer of unspecified part of unspecified lower leg with unspecified severity; Translations: [Ulcer of lower extremity]Chronic Coagulation and hemorrhagic disorders (20 sources)Purpura of skin co-occurrent and due to vascular fragility; Translations: [Other nonthrombocytopenic purpura]97-10-6026UnqpyxuiAsgeizapbcuz of device; implant or graft (16 sources)Arteriosclerosis of autologous vein coronary artery bypass graft; Translations: [Atherosclerosis ofcoronary artery bypass graft(s) without angina pectoris]Onset: 11-13-2014 Resolved: [id number] of device; implant or graft (1 source)Pain due to internal orthopedic prosthetic devices, implants and grafts, initial encounterEpisodicConditions associated with dizziness or vertigo (9 sources)Meniere's disease; Translations: [Meniere's disease, bilateral] ChronicCongestive heart failure; nonhypertensive (20 sources)Heart failure; Translations: [Heart failure, unspecified] Resolved: [id number] atherosclerosis and other heart disease (20 sources)Coronary arteriosclerosis; Translations: [Atherosclerotic heart disease of [place] coronary artery without angina pectoris]Onset: 10-29-2013 58-51-3760JtivpttDrdbisz on above:CABG x - 2014,PCI/stent (prior to 2014) PCI/stent (prior to 2014),CABG x - 2014,Stress NM: LVEF 33%, inferolateral fixed defect - 08/2024,LHC: LVEF 35%, patent grafts - 09/2024PCI/stent (prior to 2014)Coronary atherosclerosis and other heart disease (2 sources)Presence of aortocoronary bypass graft; Translations: [Presence of aortocoronary bypass graft]Onset: 02-55-3822NftqbgolCdbzzqgjtt and other anemia (3 sources)Anemia of chronic disease; Translations: [Anemia in other chronic diseases classified elsewhere]38-66-3394PipqwrvVgmttxfmpi and other anemia (1 source)Anemia in other chronic diseases classified elsewhere; Translations: [Anemia of chronic disease]Onset: 18-58-1370WclkcxpBxlfyvde mellitus with complications (12 sources)Hyperglycemia due to type 2 diabetes mellitus; Translations: [Type 2 diabetes mellitus with hyperglycemia]65-75-2869UjdrpzcOotocfjd of mouth; excluding dental (1 source)GlossitisEpisodicDisorders of lipid metabolism (20 sources)Hyperlipidemia; Translations: [Hyperlipidemia, unspecified]Onset: 783825-04-1269DuwchmnTzsskpwivwqycd and diverticulitis (20 sources)Diverticulitis of gastrointestinal tract; Translations: [Diverticulitis of intestine]04-69-0510VdoqfgkM Codes: Adverse effects of medical drugs (14 sources)Adverse reaction to drug; Translations: [Adverse effect of unspecified drugs, medicaments and biological substances, initial encounter] Onset: 094747-00-2864RnsrgyxqEanjlcbllu disorders (20 sources)Gastro-esophageal reflux disease with esophagitis; Translations: [Gastroesophageal reflux disease with esophagitis without hemorrhage]06-28-2023 ChronicEssential hypertension (20 sources)Essential hypertension; Translations: [Essential (primary) hypertension]Onset: 39-55-3346CawlnqdDeqw and other crystal arthropathies (20 sources)Calcium pyrophosphate deposition disease; Translations: [Other chondrocalcinosis, unspecified site]Onset: 574525-28-6021YgzwvrrSdjxopqn; including migraine (4 sources)Migraine; Translations: [Migraine, unspecified, not intractable, without status migrainosus]10-01-8756NnbpkecLrbomtxs; including migraine (13 sources)Headache; Translations: [Headache]70-14-8057CddjkydiIrnhs valve disorders (20 sources)Mitral and aortic incompetence; Translations: [Mitral valve insufficiency and aortic valve insufficiency]Onset: 12-29-2015 Resolved: 085576-33-9517CrynqfvWwiiw valve disorders (2 sources)Irregular heart beatOnset: 41-30-1497GlfucvyyUcqnctgjjzn of prostate (1 source)Benign prostatic hypertrophy with outflow obstruction; Translations: [Hypertrophy (benign) of prostate with urinary obstruction and other lower urinary tract symptoms [LUTS]]Onset: 48-87-9972KmbwofwKgtxo disorders and dislocations; trauma-related (1 source)Current tear of medial cartilage AND/OR meniscus of knee; Translations: [Tear of medial cartilage or meniscus of knee, current]Episodic Mood disorders (20 sources)Recurrent major depressive episodes, mild ; Translations: [Major depressive disorder, recurrent, mild]ChronicNausea and vomiting (20 sources)Nausea; Translations: [Nausea]99-32-7503PmstqgvkVkhzigbqavz deficiencies (20 sources)Vitamin D deficiency; Translations: [Vitamin D deficiency, unspecified]Onset: 760124-49-7800WdncpfcLqyvwocajck deficiencies (2 sources)Cobalamin deficiency; Translations: [Deficiency of other specified B group vitamins]07-48-0157NqkmguvlHjbm wounds of extremities (11 sources)Puncture wound without foreign body of left index finger without damage to nail, subsequent encounter; Translations: [Laceration of lower limb] Resolved: 339958-38-8778HqzrxgskHanrmsfqhsidzw (20 sources)Osteoarthritis; Translations: [Unspecified osteoarthritis, unspecified site]Onset: 09-22-2013 Resolved: 737027-20-3012HfecosyCnspbqtqysxz (5 sources)Primary osteoporosis; Translations: [Age-related osteoporosis without current pathological fracture]Onset: 446098-21-5808EjrcasxZlfxu aftercare (20 sources)Patient encounter status; Translations: [Aftercare following joint replacement surgery]69-75-0051FsnqxugVuqxo aftercare (14 sources)Aftercare following joint replacement surgery; Translations: [Aftercare following joint replacement]ChronicOther aftercare (3 sources)Other [place] [facility] (current[facility] drug therapy; Translations: [OTH RETIREMENT CURRENT DRUG THERAPY]Onset: 82-00-6110LqpsmxefSdhda aftercare (2 sources)Long-term current use of drug therapy; Translations: [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]EpisodicOther aftercare (20 sources)Long-term current use of systemic steroid; Translations: [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]Onset: 403589-77-3590PqvkmzbgKnujc aftercare (8 sources)Long-term current use of anticoagulant; Translations: [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]87-34-0565TdtykcbpZhrht aftercare (3 sources)H/O: high risk medication; Translations: [Other [place] [facility] (current) drug therapy]04-47-5696SadioseoOrrfw circulatory disease (20 sources)Presence of other cardiac implants and grafts; Translations: [Other specified cardiac device in situ]Onset: 146649-88-9748SzqrfkbKhgfb circulatory disease (9 sources)History of cerebrovascular accident without residual deficits; Translations: [Personal history of transient ischemic attack (TIA), and cerebral infarction without residual deficits]EpisodicOther circulatory disease (1 source)Orthostatic hypotensionEpisodicOther circulatory disease (20 sources)Low blood pressure; Translations: [Hypotension, unspecified] 87-47-9276UpjgjaloAiqlz connective tissue disease (20 sources)History of total knee arthroplasty; Translations: [Presence of right artificial knee joint]ChronicOther connective tissue disease (20 sources)Artificial knee joint present; Translations: [Presence of right artificial knee joint]ChronicOther connective tissue disease (20 sources)Presence of left artificial hip joint; Translations: [Hip joint replacement]Onset: 08-17-2021 Resolved: 80-74-5370IpxbajaOvxrq connective tissue disease (19 sources)Hip joint prosthesis present; Translations: [Presence of left artificial hip joint]ChronicOther connective tissue disease (20 sources)Polymyalgia rheumatica; Translations: [Polymyalgia rheumatica]Onset: 962039-36-2048XenqoxdDcjyj connective tissue disease (4 sources)Polymyalgia rheumatica; Translations: [PMR (polymyalgia rheumatica) (HCC)]Onset: 25-64-7778OalowgfNoste connective tissue disease (20 sources)History of total hip arthroplasty; Translations: [Presence of left artificial hip joint]82-15-3174CmhckteJeidi connective tissue disease (20 sources)Presence of right artificial hip joint; Translations: [Total hip replacement Prosthesis]Onset: 58-07-4412HwgibceKaxnz connective tissue disease (1 source)Presence of left artificial knee jointChronicOther connective tissue disease (20 sources)History of revision of left total hip arthroplasty; Translations: [Presence of left artificial hip joint]52-23-1588GjjmgdwUyubb connective tissue disease (20 sources)History of total replacement of right hip joint; Translations: [Presence of right artificial hip joint]58-40-6630FsecwgwIgmot connective tissue disease (3 sources)Myalgia, unspecified site; Translations: [MYALGIA UNSPECIFIED SITE] Onset: 19-66-4843WvvbbhuvYdfjc connective tissue disease (20 sources)Pain of bilateral hands; Translations: [Pain in right hand]Onset: 989505-38-1103JivthezhEigzz connective tissue disease (20 sources)Swelling of hand; Translations: [Other specified soft tissue disorders]Onset: 994330-61-8606XsglxhsgPypdp connective tissue disease (1 source)Pain in left lower legEpisodicOther connective tissue disease (18 sources)Disorder of rotator cuff; Translations: [Unspecified rotator cuff tear or rupture of right shoulder, not specified as traumatic]85-10-4275Qcgpaoyt Other connective tissue disease (1 source)Biceps tendinitis; Translations: [Bicipital tendinitis, right shoulder]05-27-4566IjfrcdmlHgwpt connective tissue disease (20 sources)Bicipital tendinitis, right shoulder; Translations: [Bicipital tenosynovitis]89-90-4099TjmeqqasSupjt connective tissue disease (5 sources)Unspecified rotator cuff tear or rupture of right shoulder, not specified as traumatic; Translations: [Disorders of bursae and tendons in shoulder region, unspecified]41-61-1287LdxgkkzxGbcta connective tissue disease (1 source)Bilateral weakness of upper limbs; Translations: [Other symptoms and signs involving the musculoskeletal system]59-62-6774ReqfkgqcAtmpt connective tissue disease (12 sources)Other symptoms and signs involving the musculoskeletal system; Translations: [Other musculoskeletalsymptoms referable to limbs]Onset: 151252-22-1423BsiprvsjFbaee connective tissue disease (7 sources)Hand pain; Translations: [Pain in left hand]50-21-4755JknwbdhoUefyf connective tissue disease (4 sources)Pain of left hand; Translations: [Pain in left hand]08-04-2024 EpisodicOther connective tissue disease (20 sources)Trochanteric bursitis; Translations: [Trochanteric bursitis, right hip]79-76-4874CmirwhbcFshue connective tissue disease (1 source)Ganglion, unspecified; Translations: [Cyst of hand]99-26-6985Woxjmgry Other disorders of stomach and duodenum (1 source)Disorder of function of stomach; Translations: [Dyspepsia and other specified disorders of functionof stomach]EpisodicOther fractures (20 sources)Fracture of rib; Translations: [Fracture of one rib, unspecified side, initial encounter for closedfracture]38-81-4540RdpyatsxVfgae gastrointestinal disorders (20 sources)Irritable bowel syndrome; Translations: [Irritable bowel syndrome without diarrhea]ChronicOther gastrointestinal disorders (2 sources)Irritable bowel syndrome with diarrhea; Translations: [Irritable bowel syndrome with diarrhea]Onset: 22-82-6285QlhfixfWmtan gastrointestinal disorders (20 sources)Swallowing painful; Translations: [Dysphagia, [...] [Other specified diseasesof blood and blood-forming organs]Onset: 28-19-3282MlmocbgSlscx hematologic conditions (20 sources)Macrocytosis - no anemia; Translations: [Other specified diseases of blood and blood-forming organs]74-84-5290EpydkwrLvmzf hematologic conditions (8 sources)ESR raised; Translations: [Elevated erythrocyte sedimentation rate] 24-95-7077GjdccngaIzswm hematologic conditions (1 source)Elevated erythrocyte sedimentation rate; Translations: [Elevated sed rate]Onset: 05-79-8959TysghjknNglpr injuries and conditions due to external causes (2 sources)History of fall; Translations: [History of falling]EpisodicOther injuries and conditions due to external causes (2 sources)Systemic inflammatory response syndrome; Translations: [Systemic inflammatory response syndrome (SIRS) of non-infectious origin without acute organ dysfunction]16-89-8848XvwiampiDbnlw injuries and conditions due to external causes (2 sources)Systemic inflammatory response syndrome (SIRS) of non-infectious origin without acute organ dysfunction; Translations: [Systemic inflammatory response syndrome, unspecified]30-58-9123IaqmsqqxYnglf injuries and conditions due to external causes (20 sources)Contusion; Translations: [Other injury of unspecified body region, initial encounter]99-65-2913QivwbjnwOvyfz liver diseases (1 source)Finding of creatine kinase level; Translations: [Abnormal levels of other serum enzymes]81-41-5116HusrtbcmUeled liver diseases (1 source)Enzyme level - finding; Translations: [Abnormal levels of other serum enzymes]55-05-9025RhskvekrAkomg lower respiratory disease (20 sources)Cough; Translations: [Cough]71-54-0465FzjptruxLbdkf male genital disorders (8 sources)Erectile dysfunction co-occurrent and due to arterial insufficiency; Translations: [Erectile dysfunction due to arterial insufficiency]ChronicOther male genital disorders (1 source)Erectile dysfunction due to arterial insufficiencyChronicOther male genital disorders (1 source)Impotence of organic origin; Translations: [Impotence of organic origin]Onset: 30-29-5118SedcakkAfnyh nervous system disorders (20 sources)Chronic pain; Translations: [Other chronic pain]36-67-1891Qzmqzpd Other nervous system disorders (10 sources)Other chronic pain; Translations: [Other chronic pain G89.29]Onset: 01-05-2021 Resolved: 82-77-4675LhagwruJbezz non-traumatic joint disorders (20 sources)Derangement of left shoulder joint; Translations: [Other specific joint derangements of left shoulder, not elsewhere classified]78-96-1259Nvqmftb Other non-traumatic joint disorders (4 sources)Other specific joint derangements of left shoulder, not elsewhere classifiedChronicOther non-traumatic joint disorders (20 sources)Rotator cuff arthropathy of left shoulder; Translations: [Other specific arthropathies, not elsewhere classified, left shoulder]Onset: 130924-75-2008NjiznnkXhnwb non-traumatic joint disorders (1 source)Other specific arthropathies, not elsewhere classified, left shoulder; Translations: [Rotator cuff arthropathy of left shoulder]Onset: 01-05-2023 ChronicOther non-traumatic joint disorders (5 sources)Pain in right hip; Translations: [Right hip pain M25.551]Onset: 01-05-2021 Resolved: 75-60-9898EtwlenchDuaiw non-traumatic joint disorders (1 source)Pain in left shoulderEpisodicOther non-traumatic joint disorders (1 source)Pain in right shoulderEpisodicOther non-traumatic joint disorders (2 sources)Arthralgia of the lower leg; Translations: [Pain in right knee] EpisodicOther non-traumatic joint disorders (2 sources)Pain in unspecified jointEpisodicOther non-traumatic joint disorders (20 sources)Pain in right knee; Translations: [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, lower leg]Onset: 444004-81-1439RiqaooikKfugt non-traumatic joint disorders (8 sources)Hip pain; Translations: [Pain in right hip]Onset: 01-05-2023 96-35-0020XvcgaymcBvkce non-traumatic joint disorders (1 source)Swollen knee region; Translations: [Effusion, right knee]09-26-2024 EpisodicOther non-traumatic joint disorders (1 source)Effusion, right knee; Translations: [Bilateral knee swelling]Onset: 12-95-9535TwngwmabHitql non-traumatic joint disorders (1 source)Effusion, left knee; Translations: [Bilateral knee swelling]Onset: 71-64-3309CxjiwoeeApprv nutritional; endocrine; and metabolic disorders (20 sources)Obese class II; Translations: [Body mass index (BMI) 36.0-36.9, adult]Onset: 42-13-3751GxuvhkhCzfty nutritional; endocrine; and metabolic disorders (16 sources)Severe obesity; Translations: [Morbid (severe) obesity due to excess calories]Onset: 556281-85-1499WvhztszIwbok nutritional; endocrine; and metabolic disorders (20 sources)Body mass index 30+ - obesity; Translations: [Body mass index (BMI) 36.0-36.9, adult]Onset: 04-07-2016 Resolved: 693671-33-7635XlmtamsGirxt nutritional; endocrine; and metabolic disorders (1 source)Morbid (severe) obesity due to excess caloriesChronicOther nutritional; endocrine; and metabolic disorders (1 source)Body mass index (BMI) 36.0-36.9, adultChronicOther nutritional; endocrine; and metabolic disorders (2 sources)Simple obesity ; Translations: [Other obesity due to excess calories] Onset: 97-41-5388GddjlqlBewzz nutritional; endocrine; and metabolic disorders (3 sources)Obese class I; Translations: [Body mass index (BMI) 34.0-34.9, adult] Onset: 68-90-1662SibcmokSxuse nutritional; endocrine; and metabolic disorders (2 sources)Obesity; Translations: [Obesity, unspecified]ChronicOther nutritional; endocrine; and metabolic disorders (20 sources)Hypomagnesemia; Translations: [Hypomagnesemia]77-32-4576WuozacwQffkl nutritional; endocrine; and metabolic disorders (1 source)HypomagnesemiaChronicOther nutritional; endocrine; and metabolic disorders (2 sources)Obesity, unspecified; Translations: [Obesity, unspecified]Onset: 41-31-4265SubvrccRlrmk nutritional; endocrine; and metabolic disorders (2 sources)Body mass index (BMI) 32.0-32.9, adult; Translations: [Body mass index (BMI) 32.0-32.9, adult]Onset: 84-88-4253IkxjhosNgfvn nutritional; endocrine; and metabolic disorders (2 sources)Body mass index (BMI) 35.0-35.9, adult; Translations: [Body mass index (BMI) 35.0-35.9, adult]Onset: 53-33-2263FqutebwIlewc nutritional; endocrine; and metabolic disorders (4 sources)Hyperuricemia; Translations: [Hyperuricemia without signs of inflammatory arthritis and tophaceous disease]32-46-1766OawnafnyIjobm nutritional; endocrine; and metabolic disorders (1 source)Hyperuricemia without signs of inflammatory arthritis and tophaceous disease; Translations: [Hyperuricemia]Onset: 90-49-9593AffecarmBfhdl skin disorders (2 sources)Mass of upper limb; Translations: [Localized swelling, mass and lump, left upper limb]92-91-4797EpqhvvtpCnebh upper respiratory disease (12 sources)Seasonal allergic rhinitis; Translations: [Other seasonal allergic rhinitis]ChronicOther upper respiratory disease (20 sources)Hoarse; Translations: [Dysphonia]EpisodicOther upper respiratory disease (1 source)DysphoniaEpisodicResidual codes; unclassified (20 sources)Obstructive sleep apnea syndrome; Translations: [Obstructive sleep apnea (adult) (pediatric)]30-43-6425GwxdkyaGpvceynp codes; unclassified (9 sources)Obstructive sleep apnea (adult) (pediatric); Translations: [Obstructive sleep apnea (adult)(pediatric)]Onset: 25-07-5089JxoogweLpgwlpmy codes; unclassified (2 sources)Insomnia; Translations: [Insomnia, unspecified]EpisodicResidual codes; unclassified (14 sources)Never smoked tobacco; Translations: [Other specified health status] Onset: 800544-22-6924OcblkdcoYyrelpnzhw arthritis and related disease (20 sources)Inflammatory polyarthropathy; Translations: [Inflammatory polyarthropathy]ChronicSepticemia (except in labor) (2 sources)Sepsis; Translations: [Sepsis, unspecified organism]08-30-2023 EpisodicSkin and subcutaneous tissue infections (14 sources)Cellulitis of lower limb; Translations: [Cellulitis of left lower limb]EpisodicSpondylosis; intervertebral disc disorders; other back problems (20 sources)Lumbar spondylosis; Translations: [Spondylosis without myelopathy or radiculopathy, lumbar region]Onset: 12-19-2017 Resolved: 57-40-9798EqlljnrXmcjqjxhfee; intervertebral disc disorders; other back problems (20 sources)Cervicalgia; Translations: [Spinal stenosis of lumbar region]Onset: 81-42-3148GipjpdciKqwknwa and strains (20 sources)Strain of muscle(s) and tendon(s) of the rotator cuff of left shoulder, initial encounter; Translations: [Strain of muscle of right shoulder] Onset: 24-67-0459RuqfhnrvBptixtbyzda injury; contusion (20 sources)Contusion of shoulder region; Translations: [Contusion of left shoulder, initial encounter]25-31-3189RjfscmdoAmzwqnnr lupus erythematosus and connective tissue disorders (1 source)Autoimmune disease; Translations: [Autoimmune disease, not elsewhere classified]Onset: 61-69-6083GqaxlktMlkjzyp disorders (20 sources)Hypothyroidism; Translations: [Hypothyroidism, unspecified]Onset: 182325-18-9979InxutjvVztgjqfed cerebral ischemia (16 sources)Vertebrobasilar territory transient ischemic attack; 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]Onset: 067155-39-5012ZohupupYkymqdqoduew (1 source)Long-term current use of drug therapy; Translations: [Long-term (current) use of other medications]Onset: 02-01-7065Potrfvspzrzt (9 sources)Other persistent atrial fibrillation; Translations: [Other persistent atrial fibrillation]Onset: 72-62-7724Lbgkkqoeqffg (1 source)Hospital Follow-upOnset: 27-14-3886Pbxmmeeudbdz (1 source)Chronic atrial fibrillation, unspecified; Translations: [Chronic atrial fibrillation, unspecified]Onset: 09-85-5855Wjbvrxyirnml (20 sources)A [facility] screening has identified you as FRAIL [...] Four Ways to Beat the Frailty Risk [email or web address] (1 source)Chronic bilateral low back pain without sciatica; Translations: [Chronic bilateral low back pain without sciatica]Onset: 37-15-5699Moxwelbiioad (20 sources)Post hospital appointment. Please call to reschedule if needed. Unclassified (7 sources)You have been scheduled for a follow up appointment for the following date and time, please call to reschedule if needed.Unclassified (20 sources)EKG - we will call you with appointmentUnclassified (1 source)Right leg kekprjet81-48-5103Skihh infection (2 sources)Molluscum contagiosum infection; Translations: [Molluscum contagiosum]Episodic Past or Other Problems Problem ClassificationProblemDateDocumented DateEpisodic/ChronicAcute and unspecified renal failure (20 sources)Acute renal failure syndrome; Translations: [Acute kidney failure, unspecified]Onset: 424135-60-3160HudonvpuNrukkruby and vision defects (20 sources)Blurring of visual image; Translations: [Other visual disturbances] Onset: 403275-03-5868NnsyitibFkrbxeodnj associated with dizziness or vertigo (10 sources)Benign paroxysmal positional vertigo; Translations: [Benign paroxysmal vertigo, left ear]Onset: 284518-50-6215KvtwkryuLuznmholri disorders (6 sources)Esophageal disorders; Translations: [Gastro-esophageal reflux disease with esophagitis, without bleeding]Onset: 43-61-9310Qqosfvgbwbwlf and screening for infectious disease (20 sources)Vaccination given; Translations: [Encounter for immunization]Onset: 612558-57-1282MecfhzjqNdweswn and fatigue (3 sources)Other fatigue; Translations: [Malaise and fatigue]Onset: 02-02-2016 EpisodicNonspecific chest pain (20 sources)Chest pain; Translations: [Chest pain, unspecified]Onset: 09-29-2024 17-66-2832PwkgashuBjfif aftercare (1 source)group home (current) use of 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; Translations: [group home current use of 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]Onset: 89-20-6692GqxvrubhIdelv circulatory disease (1 source)Hypotension, unspecified; Translations: [Hypotension, unspecified] Onset: 76-21-6095QzhkxojfAtezu connective tissue disease (3 sources)Pain in right hand; Translations: [Bilateral hand pain]Onset: 09-12-2021 Resolved: 92-34-9494LdggctviXgxks connective tissue disease (1 source)Rupture of tendon of biceps, long head; Translations: [Nontraumatic rupture of tendons of biceps (long head)]Onset: 85-49-1849MwyrcjhuIfxmc connective tissue disease (2 sources)Nontraumatic rupture of rotator cuff of left shoulder; Translations: [Unspecified rotator cuff tearor rupture of left shoulder, not specified as traumatic]Onset: 57-87-9276AzqyfavtSxsvq connective tissue disease (9 sources)Pain in left hand; Translations: [Pain in limb]Onset: 01-05-2023 59-21-0019NibcpvdaTcdoc connective tissue disease (1 source)Other specified soft tissue disorders; Translations: [Bilateral hand swelling]Onset: 25-96-0223QefhaupqJdxda gastrointestinal disorders (1 source)Diarrhea; Translations: [Diarrhea]Onset: 71-81-9488MfpzfwteDbhqd male genital disorders (2 sources)Hemospermia; Translations: [Hematospermia]Onset: 05-45-2657Mpbpzmyv Other non-traumatic joint disorders (19 sources)Swelling of knee joint; Translations: [Effusion, unspecified knee] Onset: 45-23-9468JdxtxcjyDcxbu non-traumatic joint disorders (4 sources)Pain in left hip; Translations: [Left hip pain M25.552]Onset: 01-05-2021 Resolved: 18-89-6822OpnwbzhwKigls non-traumatic joint disorders (4 sources)Shoulder joint pain; Translations: [Pain in right shoulder]Onset: 00-44-9395JjsraaveMkzpa non-traumatic joint disorders (13 sources)Pain in right hip joint; Translations: [Pain in right hip]Onset: 643123-86-1447PybpnqiuRiywa non-traumatic joint disorders (2 sources)Pain in left knee; Translations: [Chronic pain of both knees]Onset: 72-93-4947RzikmspaKnckb screening for suspected conditions (not mental disorders or infectious disease) (20 sources)Screening status; Translations: [Encounter for screening for malignant neoplasm of colon]Onset: 06-14-2018 Resolved: 08-56-5048TjhjtdsuCojhxymz codes; unclassified (3 sources)Other specified health status; Translations: [Other specified conditions influencing health status]Onset: 89-67-4375XftngubiYejeuhl (20 sources)Near syncope; Translations: [Syncope and collapse]Onset: 09-30-2024 73-11-6053VmoaystuExebabzlsndh (9 sources)Onset: 12-19-2023 Resolved: Viral infection (1 source)COVID-19 Results Test NameValueInterpretationReference RangeFacilityUS arterial duplex UE LTon [id number] arterial duplex UE LTCHILLICOT[facility] Main [place] [address] [place] [address] Ultrasound Report Signed Patient: Esme Kaminski MR#: [id number] : 1960 Acct:[id number] Age/Sex: 64 / M ADM Date: 02/17/25 Loc: ER Room: Type: [facility] ER Attending Dr: Ordering Provider: Will Zimmerman DO Date of Service: 02/17/25 US/US arterial duplex UE LT: pulsatile mass over volar aspect of wrist Copies to: Will Zimmerman DO Left upper extremity arterial duplex evaluation INDICATIONS: Pulsatile mass over the left renal artery FINDINGS: Left upper extremity: A complex structure was identified next to the left greater artery distally measuring 1.3 x 0.8 x 0.6 cm. This does not connect to the vessel. It does not have any flow. US/US arterial duplex UE LT IMPRESSION: As above. Impression dictated by: Tony Rock MD,FACS,FSVS 02/18/2025 5:07 PM Dictation Location: [facility]04 Tech: Serena Medina Transcribed By: GWEN 02/18/251706 Dictated By: Tony Rock MD 02/18/251705 Signed By: 02/18/25 170[facility] Physician GroupAlbumin [Mass/volume] in Serum or Plasma by Bromocresol green (BCG) dye binding methoOrdered By: Will Zimmerman on 69-68-5753Ervskjt BCG dye [Mass/Vol]4.2 g/dL3.5-5.7FWayne HospitalComplete Blood Count Auto DiffOrdered By: Will Zimmerman on 66-57-6188Zwrtidtvi (Bld) [#/Vol]0.1 10*3/uLNormal0.0-0.2 [facility] Crille HospitalComment on above:Result Comment: PERFORMED BY: [facility] [address] [place] [address] PATHOLOGIST FIBER ANALYST RYAN ALMARAZ M.D.Performed By: #### CMP, CBC ####[place] [id number] USABasophils/100 WBC (Bld)1.3 %Normal. [facility] Crille HospitalComment on above:Performed By: #### CMP, CBC ####[place] [address] [facility] Eosinophils (Bld) [#/Vol]0.0 10*3/uLNormal0.0-0.45[facility] Crille HospitalComment on above:Performed By: #### CMP, CBC ####[place] [address] USAEosinophils/100 WBC (Bld)0.5 % Normal.[facility] Crille HospitalComment on above:Performed By: #### CMP, CBC ####[place] [address] [place] Erythrocyte distribution width (RBC) [Ratio]15.3 %High12.0-14.8[facility] Crille HospitalComment on above:Performed By: #### CMP, CBC ####[address] [address] [facility] Hematocrit (Bld) [Volume fraction]43.3 %Cfcqku92.8-50.0[facility] Cr[facility] HospitalComment on above:Performed By: #### CMP, CBC ####[address] [address] USAHemoglobin (Bld) [Mass/Vol]14.9 g/gAZeiyxt98.0-17.0[facility] Crille HospitalComment on above:Performed By: #### CMP, CBC ####[address] [address] USALymphocytes (Bld) [#/Vol]1.2 10*3/uLNormal1.00-4.8 [facility] Crille HospitalComment on above:Performed By: #### CMP, CBC ####[place] [address] [place] Lymphocytes/100 WBC (Bld)14.4 %Normal.[facility] Crille HospitalComment on above:Performed By: #### CMP, CBC ####[place] [address] [facility] CORPORATIONMCH (RBC) [Entitic mass]36.6 xdFyzv79.5-35.2 [facility] Cr[facility] HospitalComment on above:Performed By: #### CMP, CBC ####[address] Bar[address] StreetMCV (RBC) [Entitic vol]106.5 pQLnir87.5-101B[facility] Crille HospitalComment on above:Performed By: #### CMP, CBC ####[place] [address] USAMonocytes (Bld) [#/Vol]0.6 10*3/uLNormal 0.0-0.8[facility] Crille HospitalComment on above:Performed By: #### CMP, CBC ####[place] [address] [place] Monocytes/100 WBC (Bld)7.5 %Normal.[facility] Crille HospitalComment on above:Performed By: #### CMP, CBC ####[place] [address] USANeutrophils (Bld) [#/Vol]6.4 10*3/uLNormal1.8-7.7 [facility] Cr[facility] HospitalComment on above:Performed By: #### CMP, CBC ####[place] [address] [place] Neutrophils/100 WBC (Bld)76.3 %Normal.[facility] Crille HospitalComment on above:Performed By: #### CMP, CBC ####[address] [address] USAPlatelet mean volume (Bld) [Entitic vol]8.8 fL Normal6.6-10.1FWayne HospitalComment on above:Performed By: #### CMP, CBC ####[address] [address] USAPlatelets (Bld) [#/Vol]192 10*3/cIRcctlr146-772EvbiwjwioBrecksville Va / Crille HospitalComment on above:Performed By: #### CMP, CBC ####[address] [address] USARBC (Bld) [#/Vol]4.07 10*6/uLNormal3.90-5.60[facility] Crille HospitalComment on above: Performed By: #### CMP, CBC ####[place] [address] USAWBC (Bld) [#/Vol]8.3 10*3/uLNormal4.1-10.5FWayne HospitalComment on above:Performed By: #### CMP, CBC ####[place] [address] [facility] Complete Blood Count Auto Diffon 09-87-8879Uotr Corpuscular HGB Conc34.4 g/dL Xobqub10.5-35.6The [facility] Physician GroupComment on above:Performed By: #### CMP, CBC ####[place] [address] USAMonocytes/100 WBC (Bld)18.76 %Normal0.00-20.00[facility] Comment on above:Performed By: #### CMP, CBC ####[address] [address] USANRBC%0.1 /100{WBC}Normal0-0.5The [facility] Physician GroupComment on above:Performed By: #### CMP, CBC ####[place] [address] [place] [address] USAWhite Blood Count8.3 [CFU]/mLNormal4.1-10.5The [facility] Physician GroupComment on above:Performed By: #### CMP, CBC ####[address] [address] USAComprehensive Metabolic Panelon 46-63-0414Upyxxzl [Mass/Vol]4.2 g/dLNormal3.5-5.7The [facility] Physician GroupComment on above: Performed By: #### CMP, CBC ####[address] [address] USACreatinine Clr Calc Adejrdmf91.15NormalThe [facility] Harrisburg Physician GroupComment on above:Result Comment: PERFORMED BY: [facility] [address] [place] [id number] PATHOLOGIST FIBER ANALYST RYAN ALMARAZ M.D.Performed By: #### CMP, CBC ####[address] [address] USAGFR/1.73 sq M.predicted MDRD (S/P/Bld) [Vol rate/Area]mL/min/{1.73_m2}NormalThe [facility] Physician [facility] CenterComment on above:Performed By: #### CMP, CBC ####[address] [address] USAComprehensive Metabolic PanelOrdered By: Will Zimmerman on 11-03-6715Siicyiz/Globulin [Mass ratio]1.9 {ratio}[facility] Memorial HospitalComment on above:Performed By: #### CMP, CBC ####[address] [address] USAALP [Catalytic activity/Vol]80 U/XAyrksd82-592DwoqihjfwBrecksville Va / Crille Hospital Comment on above:Performed By: #### CMP, CBC ####[address] [address] USAALT [Catalytic activity/Vol]29 U/L Normal7-52[facility] HospitalComment on above:Performed By: #### CMP, CBC ####[facility] [address] [place] [address] USAAnion gap [Moles/Vol]11.7 mmol/LNormal6.0-15.0[facility] HospitalComment on above:Performed By: #### CMP, CBC ####[facility] Kzw[address]694 [place] [address] USAAST [Catalytic activity/Vol]27 U/CLobyul07-14UoqfftedcBrecksville Va / Crille HospitalComment on above:Performed By: #### CMP, CBC ####[facility] Xmf[address]674 [place] [address] USABilirubin [Mass/Vol]1.2 mg/dLHigh0.3-1.0[facility] HospitalComment on above:Performed By: #### CMP, CBC ####[facility] [place] [address] USACalcium [Mass/Vol]9.6 mg/dL Normal8.6-10.3FWayne HospitalComment on above:Performed By: #### CMP, CBC ####[facility] Zxb8577 [place] [address] USAChloride [Moles/Vol]103 mmol/DDgvxkd52-092DtoryxrrtBrecksville Va / Crille HospitalComment on above:Performed By: #### CMP, CBC ####[facility] Jvm[address]308 [place] [address] USACO2 [Moles/Vol]26.9 mmol/L Wolcfs95.0-31.0[facility] Cr[facility] HospitalComment on above:Performed By: #### CMP, CBC ####[facility] [place] [address] USACreatinine [Mass/Vol]0.78 mg/dLNormal0.70-1.30[facility] HospitalComment on above:Performed By: #### CMP, CBC ####[facility] [place] [address] USAGlobulin (S) [Mass/Vol]2.2 g/dLNormalBrecksville Va / Crille HospitalComment on above: Performed By: #### CMP, CBC ####[address] [address] USAGlucose [Mass/Vol]151 mg/kXPxjr23-133RtqbiwxeiBrecksville Va / Crille HospitalComment on above:Result Comment: Random Glucose Reference Range is dependent on time and content of last meal. Glucose of more than 200 mg/dL in a nonstressed, ambulatory subject supports the diagnosis of Diabetes Mellitus. ADA recommended reference rangePerformed By: #### CMP, CBC ####[address] [address] USAADA recommended reference rangeRandom Glucose Reference Range is dependent on time and content of last meal. Glucose of more than 200 mg/dL in a nonstressed, ambulatory subject supports the diagnosisof Diabetes Mellitus.Potassium [Moles/Vol]3.6 mmol/LNormal3.5-5.1FWayne HospitalComment on above:Performed By: #### CMP, CBC ####[place] [address] USAProtein [Mass/Vol]6.4 g/dLNormal6.4-8.9[facility] HospitalComment on above:Performed By: #### CMP, CBC ####[place] [address] USASodium [Moles/Vol]138 mmol/L Hwctfz052-967NmaybmdznBrecksville Va / Crille HospitalComment on above:Performed By: #### CMP, CBC ####[place] [address] USAUrea nitrogen [Mass/Vol]7 mg/dLNormal7-25[facility] HospitalComment on above:Performed By: #### CMP, CBC ####[place] [address] USAGlomerular filtration rate [Volume Rate/Area] in Serum, Plasma or Blood by CreatinineOrdered By: Will Zimmerman on 86-60-0581Hybjpqamuq filtration rate [Volume Rate/Area] in Serum, Plasma or Blood by Creatinine> 60.0 mL/MinBrecksville Va / Crille Hospital Leukocytes [#/volume] corrected for nucleated erythrocytes in Blood by Automated counOrdered By: Will Zimmerman on 99-36-8215TVM corrected for nucl RBC Auto (Bld) [#/Vol]8.3 10*3/uL4.1-10.5FWayne HospitalMCHC Auto (RBC) [Mass/Vol]Ordered By: Will Zimmerman on 80-28-4505BMNN (RBC) [Mass/Vol]34.4 g/dL32.5-35.6FWayne HospitalMonocyte distribution width [Entitic volume] in Blood by AutomatedOrdered By: Will Zimmerman on 20-06-4931Ilkfnmgb distribution width Auto (Bld) [Entitic vol] 18.76 %0.00-20.00[facility] HospitalNo Panel InformationOrdered By: Will Zimmerman on 46-06-2880Mwrxczoz Creatinine Clearance (Chem91.15 [facility] Crille HospitalNucleated erythrocytes [Presence] in Blood by Automated countOrdered By: Will Zimmerman on 40-35-0088Ynkzsppzm RBC Auto Ql (Bld)0.1 /100{WBC}0-0.5FWayne HospitalPartial Thromboplastin Timeon 04-65-7963oTTR Coag (Bld) [Time]25.5 iEsuvxu86.1-36.5The [facility] Physician GroupComment on above:Result Comment: A hematocrit value greater than 55% may lead to inaccurate results in coagulation testing. Patients having hematocrit values >55% require a special collection tube for coagulation studies. Please contact the laboratory at [phone] for redraw instructions. PERFORMED BY: [place] [address] PATHOLOGIST FIBER ANALYST RYAN ALMARAZ M.D.Performed By: #### PT, PTT #### [place] [address] USAProthrombin Time INROrdered By: Will Zimmerman on 01-27-2342FDQ Coag (PPP) [Relative time]1.0 {INR}NormalBrecksville Va / Crille HospitalComment on above:Result Comment: INR Therapeutic Range [...] heart valves: 3 - 4.5Performed By: #### PT, PTT #### [facility] [address] [place] [id number] USAINR Therapeutic Range A) Pre- and Peroperative OAT started two weeks before surgery. NOT HIP SURGERY: 1.5 - 2.5 HIP SURGERY: 2 - 3B) Primary and secondary prevention of venous THROMBOSIS: 2 - 3C) Active venous thrombosis, pulmonary embolismand prevention of recurrent venous thrombosis: 2 - 3D) Prevention of arterial thromboembolismincluding patients with mechanical heart valves: 3 - 4.5PT Coag (PPP) [Time]11.4 sNormal9.0-12.9[facility] Cr[facility] HospitalComment on above:Result Comment: A hematocrit value greater than 55% may lead to inaccurate results in coagulation testing. Patients having hematocrit values >55% require a special collection tube for coagulation studies. Please contact the laboratory at [phone] for redraw instructions.Performed By: #### PT, PTT #### [address] [address] hematocrit value greater than 55% may lead to inaccurate results in coagulation testing. Patientshaving hematocrit values >55% require a special collection tube for coagulation studies. Please contact the laboratory at [phone] for redraw instructions.aPTT in Platelet poor plasma by Coagulation assayOrdered By: Will Zimmerman on 25-55-7329uEXH Coag (PPP) [Time]25.5 s25.1-36.5FWayne HospitalComment on above:A hematocrit value greater than 55% may lead to inaccurate results in coagulation testing. Patientshaving hematocrit values >55% require a special collection tube for coagulation studies. Please contact the laboratory at [phone] for redraw instructions.Blood type and Indirect antibody screen panel (Bld)on 04-91-2538SZU group Nom (Bld)AUnCleveland Clinic Mercy HospitalBlood group antibody screen QlNegativeUnCleveland Clinic Mercy HospitalD Ag Ql (Bld)Positive [facility] WestUnCleveland Clinic Mercy HospitalABO group Nom (Bld)ANormOhioHealth Berger HospitalComment on above: Performed By: #### 91430-2 #### RAPHAEL Blanco ([id number]) [facility] ([facility]) [address] [place], [place] [address]Lvvmv group antibody screen QlNegativeNoUniversity Hospitals Cleveland Medical CenterComment on above:Performed By: #### 75946-9 #### RAPHAEL Blanco ([id number]) [facility] ([facility]) [address] [address] [place], [place] [address]Z Ag Ql (Bld)PositiveNoUniversity Hospitals Cleveland Medical CenterComment on above:Performed By: #### 66559-9 #### RAPHAEL Blanco ([id number]) [facility] ([facility]) [address] [place], [place] [address]AXA W Auto Differential panel (Bld)on 13-41-6755Azafrzbyq (Bld) [#/Vol]0.02 10*3/[facility]ittman HospitalBasophils/100 WBC (Bld)0.3 %0.0 - 2.0 %[facility] Cleveland WestEosinophils (Bld) [#/Vol] 0.03 10*3/[facility]-Rittman HospitalEosinophils/100 WBC (Bld)0.4 %0.0 - 6.0 %[facility] Cleveland WestErythrocyte distribution width (RBC) [Ratio]13.6 %11.5 - 14.5 %[facility] WestHematocrit (Bld) [Volume fraction]39.0 %Low41.0 - 52.0 %[facility] Hemoglobin (Bld) [Mass/Vol]14.1 g/dL13.5 - 17.5 g/dLRegency Hospital Cleveland WestImsaint john's regional health center granulocytes (Bld) [#/Vol]0.13 10*3/[facility]ittman HospitalImmature granulocytes/100 WBC (Bld)1.9 %High0.0 - 0.9 %[facility] on above:Immature Granulocyte Count (IG) includes promyelocytes, myelocytes and metamyelocytes but does not include bands. Percent differential counts (%) should be interpreted in the context of the absolute c ell counts (cells/UL).Interpretation and review of laboratory resultsAbnormal [facility] Cleveland WestLymphocytes (Bld) [#/Vol]1.14 10*3/uLLow [facility] Cleveland WestLymphocytes/100 WBC (Bld)16.3 %13.0 - 44.0 % [facility] HospitalH (RBC) [Entitic mass]36.4 gpIlwh21.0 - 34.0 pgUnOhioHealth Marion General HospitalHC (RBC) [Mass/Vol]36.2 g/nGSagg95.0 - 36.0 g/dLMemorial Health System Selby General HospitalV (RBC) [Entitic vol]101 vTIbnz39 - 100 fLUniGlenbeigh HospitalMonocytes (Bld) [#/Vol]0.54 10*3/[facility]ittman HospitalMonocytes/100 WBC (Bld)7.7 %2.0 - 10.0 %[facility] WestNeutrophils (Bld) [#/Vol]5.14 10*3/[facility] on above:Percent differential counts (%) should be interpreted in the context of the absolute cell counts (cells/uL). Neutrophils/100 WBC (Bld)73.4 %40.0 - 80.0 %[facility] Nucleated RBC/100 WBC (Bld) [Ratio]0.0 %[facility] Platelets (Bld) [#/Vol]115 10*3/[facility], Edwin ShawRBC (Bld) [#/Vol]3.87 10*6/[facility], Edwin ShawWBC (Bld) [#/Vol]7.0 10*3/[facility]-Rittman HospitalUnCleveland Clinic Mercy Hospital Basophils (Bld) [#/Vol]0.02 x10*3/[facility] Memorial HealthCarermal0.00-0.10The [facility]vue HospitalComment on above:Performed By: #### 49506-1 #### RAPHAEL Blanco ([id number]) [facility] [address] [place] [address]Xzcyumlij/100 WBC (Bld)0.3 %Normal0.0-2.0UnNorwalk Memorial HospitalComment on above:Performed By: #### 75902-6 #### RAPHAEL Blanco ([id number]) [facility] [address] [place] [address]Pakznkwzevz (Bld) [#/Vol]0.03 x10*3/uLNormal0.00-0.70 The [facility] HospitalComment on above:Performed By: #### 17873-2 #### RAPHAEL Blanco ([id number]) [facility] [address] [place] [address]Lyvwsrqarbq/100 WBC (Bld)0.4 %Normal0.0-6.0UnNorwalk Memorial HospitalComment on above:Performed By: #### 82466-7 #### RAPHAEL Blanco ([id number]) [facility] [address] [place] [address]Idqdwmkkplp distribution width (RBC) [Ratio]13.6 %Normal 11.5-14.5UnNorwalk Memorial HospitalComment on above:Performed By: #### 43883-9 #### RAPHAEL Blanco ([id number]) [facility] [address] [place] [address]Ozomfgbteh (Bld) [Volume fraction]39.0 %Low41.0-52.0 The [facility]vue HospitalComment on above:Performed By: #### 75298-3 #### RAPHAEL Blanco ([id number]) [facility] [address] [place] [address]Dgiqkinemf (Bld) [Mass/Vol]14.1 g/aQNlgpww12.5-17.5UnNorwalk Memorial HospitalComment on above:Performed By: #### 65037-9 #### RAPHAEL Blanco ([id number]) [facility] [address] [place] [address]Qnhrugpu granulocytes (Bld) [#/Vol]0.13 x10*3/uLNormal 0.00-0.70The [facility] HospitalComment on above:Performed By: #### 78852-7 #### RAPHAEL Blanco ([id number]) [facility] [address] [place] [address]Ttxgvpmp granulocytes/100 WBC (Bld)1.9 %High0.0-0.9UnNorwalk Memorial HospitalComment on above:Result Comment: Immature Granulocyte Count (IG) includes promyelocytes, myelocytes and metamyelocytes but does not include bands. Percent differential counts (%) should be interpreted in the context of the absolute cell counts (cells/UL).Performed By: #### 50520-4 #### RAPHAEL Blanco ([id number]) [facility] [address] [place] [address]Zfsgnulmeik (Bld) [#/Vol]1.14 x10*3/uLLow1.20-4.80UnNorwalk Memorial HospitalComment on above:Performed By: #### 65449-7 #### RAPHAEL Blanco ([id number]) [facility] [address] [place] [address]Wfiholkildv/100 WBC (Bld)16.3 %Vzndop01.0-44.0UnNorwalk Memorial HospitalComment on above:Performed By: #### 36071-5 #### RAPHAEL Blanco ([id number]) [facility] [address] [place] [address]YQF (RBC) [Entitic mass]36.4 kdWsyl93.0-34.0UnNorwalk Memorial HospitalComment on above:Performed By: #### 35310-9 #### RAPHAEL Blanco ([id number]) [facility] [address] [place], [place] [address]XYZC (RBC) [Mass/Vol]36.2 g/yZUgqw96.0-36.0The [facility] HospitalComment on above:Performed By: #### 02506-3 #### RAPHAEL Blanco ([id number]) [facility] [address] [place], [place] [address]SUF (RBC) [Entitic vol]101 jFEakc00-808MacmzuvqkdNorwalk Memorial HospitalComment on above:Performed By: #### 15020-5 #### RAPHAEL Blanco (43594) [facility] [address] [place], [place] [address]Sotrgxkqf (Bld) [#/Vol]0.54 x10*3/uLNormal0.10-1.00The [facility] HospitalComment on above:Performed By: #### 10853-9 #### RAPHAEL Blanco ([id number]) [facility] [address] [place], [place] [address]Tcbkfwazt/100 WBC (Bld)7.7 %Normal2.0-10.0The [facility] HospitalComment on above:Performed By: #### 02429-7 #### RAPHAEL Blanco ([id number]) [facility] [address] [place], [place] [address]Aeyvmbkooeu (Bld) [#/Vol]5.14 x10*3/uLNormal1.20-7.70 The [facility] HospitalComment on above:Result Comment: Percent differential counts (%) should be interpreted in the context of the absolute cell counts (cells/uL).Performed By: #### 82529-5 #### RAPHAEL Blanco (59375) [facility] [address] [place], [place] [address]Mxpfllcekbb/100 WBC (Bld)73.4 %Ujqpla60.0-80.0The [facility] HospitalComment on above:Performed By: #### 32745-6 #### RAPHAEL Blanco (53252) [facility] [id number] [place] [address]Mzecgvdgs RBC/100 WBC (Bld) [Ratio]0.0 /100 WBCsNormal0.0-0.0 The [facility] HospitalComment on above:Performed By: #### 79132-8 #### RAPHAEL Blanco ([id number]) [facility] [address] [place] [address]Rfrfwdmec (Bld) [#/Vol]115 x10*3/cYRrp330-452KiprvkmbccNorwalk Memorial HospitalComment on above:Performed By: #### 57061-1 #### RAPHAEL Blanco ([id number]) [facility] [address] [place] [address]GVM (Bld) [#/Vol]3.87 x10*6/uLLow4.50-5.90UnNorwalk Memorial HospitalComment on above:Performed By: #### 61172-3 #### RAPHAEL Blanco ([id number]) [facility] [address] [place] [address]QML (Bld) [#/Vol]7.0 x10*3/uLNormal4.4-11.3UnNorwalk Memorial HospitalComment on above:Performed By: #### 77951-3 #### RAPHAEL Blanco ([id number]) [facility] [address] [place] [address]Zdwehlojvsx tissue factor inducedon 19-65-6410OV Coag (PPP) [Time]11.0 sNormal9.8-12.4UnNorwalk Memorial HospitalComment on above:Performed By: #### 5902-2 #### RAPHAEL Blanco ([id number]) [facility] [address] [place] [address]Odswczdwmokkj metabolic 2000 panelon 31-80-6414Kkpimfe BCP dye [Mass/Vol]4.0 g/dL3.4 - 5.0 g/dLUnCleveland Clinic Mercy HospitalALP [Catalytic activity/Vol]66 U/L33 - 136 U/[facility] HospitalALT With P-5'-P [Catalytic activity/Vol]22 U/L10 - 52 U/[facility] on above:Patients treated with Sulfasalazine may generate falsely decreased results for ALT.Anion gap [Moles/Vol]13 mmol/L10 - 20 mmol/L [facility] WestAST With P-5'-P [Catalytic activity/Vol]18 U/L9 - 39 U/[facility] HospitalBilirubin [Mass/Vol]1.2 mg/dL0.0 - 1.2 mg/dLUnCleveland Clinic Mercy HospitalCalcium [Mass/Vol]9.2 mg/dL8.6 - 10.6 mg/dLUnCleveland Clinic Mercy HospitalChloride [Moles/Vol]103 mmol/L98 - 107 mmol/[facility] HospitalCO2 [Moles/Vol]25 mmol/L21 - 32 mmol/L [facility] WestCreatinine [Mass/Vol]0.73 mg/dL0.50 - 1.30 mg/dLUnCleveland Clinic Mercy HospitaleGFR- PINFUniGood Samaritan Hospital on above:Calculations of estimated GFR are performed using the 2020 CKD-EPI Study Refit equation without therace variable for the IDMS- Traceable creatinine methods. https://jasn.asnjournals.org/content//ASN.2259761059 Glucose [Mass/Vol]169 mg/aDIbcv63 - 99 mg/dLUnCleveland Clinic Mercy Hospital Interpretation and review of laboratory resultsAbnormalUniGlenbeigh HospitalPotassium [Moles/Vol]3.7 mmol/L3.5 - 5.3 mmol/[facility] HospitalProtein [Mass/Vol]6.3 g/dLLow6.4 - 8.2 g/dLUnCleveland Clinic Mercy HospitalSodium [Moles/Vol]137 mmol/L136 - 145 mmol/[facility] HospitalUrea nitrogen [Mass/Vol]17 mg/dL6 - 23 mg/dLUnCleveland Clinic Mercy HospitalUnCleveland Clinic Mercy HospitalAlbumin BCP dye [Mass/Vol]4.0 g/dL Normal3.4-5.0The Bellevue HospitalComment on above: Performed By: #### [id number] #### RAPHAEL Blanco ([id number]) [facility] [address] [place], [place] [address]NOA [Catalytic activity/Vol]66 U/YFyuqje92-469JjawcvdrflNorwalk Memorial HospitalComment on above:Performed By: #### [id number] #### RAPHAEL Blanco ([id number]) [facility] [id number] [place] [address] [id number] With P-5'-P [Catalytic activity/Vol]22 U/YMsjxeu38-21 The Bellevue HospitalComment on above:Result Comment: Patients treated with Sulfasalazine may generate falsely decreased results for ALT.Performed By: #### 20825-1 #### RAPHAEL Blanco ([id number]) [facility] [address] [place], [place] [address]Txgzo gap [Moles/Vol]13 mmol/ZApenzp10-62WbvscyirsdNorwalk Memorial HospitalComment on above:Performed By: #### 52931-7 #### RAPHAEL Blanco ([id number]) [facility] [address] [place] [address]KNY With P-5'-P [Catalytic activity/Vol]18 U/LNormal9-39 The [facility]vue HospitalComment on above:Performed By: #### 25895-6 #### RAPHAEL Blanco ([id number]) [facility] [address] [place] [address] 617[address]Jlntpzxyf [Mass/Vol]1.2 mg/dLNormal0.0-1.2The Bellevue HospitalComment on above:Performed By: #### 84902-0 #### RAPHAEL Blanco ([id number]) [facility] [address] [place] [address] 317[address]Dfuyqsb [Mass/Vol]9.2 mg/dLNormal8.6-10.6The Bellevue HospitalComment on above:Performed By: #### 66462-0 #### RAPHAEL Blanco ([id number]) [facility] [address] [place], [place] [address]Kbysjidz [Moles/Vol]103 mmol/TXejtdf94-699JeorexhnuaNorwalk Memorial HospitalComment on above:Performed By: #### 93855-3 #### RAPHAEL QUINTERO L ([id number]) [facility] [address] [place], [place] [address]SS9 [Moles/Vol]25 mmol/AEwhrih81-22DjteismzluNorwalk Memorial HospitalComment on above:Performed By: #### 16094-8 #### RAPHAEL Blanco ([id number]) [facility] [address] [place] [address]Nbgsbfexiz [Mass/Vol]0.73 mg/dLNormal0.50-1.30UnNorwalk Memorial HospitalComment on above:Performed By: #### 15595-0 #### RAPHAEL Blanco ([id number]) [facility] [address] [place] [address] 00242Vnddehddtm filtration rate>90Normal>60UnNorwalk Memorial HospitalComment on above:Result Comment: Calculations of estimated GFR are performed using the 2020 CKD-EPI Study Refit equation without the race variable for the IDMS-Traceable creatinine methods. https://jasn.asnjournals.org/content/early//ASN.7537934104Gufmpbjcl By: #### 28087-8 #### RAPHAEL Blanco ([id number]) [facility] [address] [place], [place] [address]Budcqza [Mass/Vol]169 mg/bOGxgj16-57KzjipdcuvaNorwalk Memorial HospitalComment on above:Performed By: #### 50351-1 #### RAPHAEL Blanco ([id number]) [facility] [address] [place] [address] 148[address]Ftmqdzftp [Moles/Vol]3.7 mmol/LNormal3.5-5.3The Bellevue HospitalComment on above:Performed By: #### 44641-6 #### RAPHAEL Blanco ([id number]) [facility] [address] [place] [address]Qpenfum [Mass/Vol]6.3 g/dLLow6.4-8.2UnNorwalk Memorial HospitalComment on above:Performed By: #### 82813-9 #### RAPHAEL Blanco ([id number]) [facility] [address] [place] [address] 327[address]Yaahwh [Moles/Vol]137 mmol/AInetrh971-331MubmgjnxwqNorwalk Memorial HospitalComment on above:Performed By: #### 77886-0 #### RAPHAEL Blanco ([id number]) [facility] [address] [place] [address] 13891Lymb nitrogen [Mass/Vol]17 mg/dLNormal6-23The Bellevue HospitalComment on above:Performed By: #### 87597-2 #### RAPHAEL Blanco ([id number]) [facility] [address] [place] [address] 94[address]MFJ 12 leadOrdered By: Savana Meza on 01-30-2025 Cqsaw592 [facility] Work Phone: [phone] Pymuw22vvvdrVowcqsriqcGlenbeigh Hospital Work Phone: [phone] Vfbuloqx[address] [facility] Work Phone: [phone] Muqzywdw[address] [facility] Work Phone: [phone] Calculation(Darryltt)[address] [facility] Work Phone: [phone] Dwpwsiygkc8[address] [facility] Work Phone: [phone] Tjqe08syzqjoeZbxacnouglMercy Health – The [facility] Work Phone: T Brbs771cmvcypgBhzzqraelpRegency [facility] Work Phone: [phone] Goycxg[address] [facility] Work Phone: [phone] Gvxu230IAQVybkokqnbtFirelands Regional Medical [facility] Work Phone: [phone] Work Phone: [phone] 12 leadon 54-29-4347Drjpye fibrillation with rapid ventricular response Inferior infarct (cited on or before 29-JAN-2024) Abnormal ECG When compared with ECG of 29-JAN-2024 09:38, Atrial fibrillation has replaced Sinus rhythm Nonspecific T wave abnormality now evident in Inferior leads T wave inversion now evident in Lateral leads See ED provider note for full interpretation and clinical correlation Confirmed by Savana Meza ([id number]) on 01/30/2025 6:13:32 AMSavana Jacobs PA-C - 01/30/2025 Atrial fibrillation with rapid ventricular response Inferior infarct (cited on or before 29-JAN-2024) Abnormal ECG When compared with ECG of 29-JAN-2024 09:38, Atrial fibrillation has replaced Sinus rhythm Nonspecific T wave abnormality now evident in Inferior leads T wave inversion now evident in Lateral leads See ED provider note for full interpretation and clinical correlation Confirmed by Savana Meza ([id number]) on 01/30/2025 6:13:32 AM [facility] Work Phone: ECA 12-LEADon 39-27-4843YMF 12-LEADVentricular Rate 82 QRS Duration 114 Q-T Interval 398 QTC Calculation(Bazett) 464 R [place] 83 T Birmingham -16 QRS Count 13 Q Onset 211 T Offset 410 QTC Fredericia 441 Diagnosis Atrial fibrillation with a competing junctional pacemaker Nonspecific T wave abnormality Abnormal ECG When compared with ECG of 30-JAN-2025 02:19, Criteria for Inferior infarct are no longer Present See ED provider note for full interpretation and clinical correlation Confirmed by Savana Meza ([id number]) on 01/30/2025 7:48:49 [facility] CenterEC 12-LEADVentricular Rate 102 QRS Duration 114 Q-T Interval 380 QTC Calculation(Bazett) 495 R Birmingham 10 T Birmingham 122 QRS Count 16 Q Onset 214 [...] and clinical correlation Confirmed by Savana Meza ([id number]) on 01/30/2025 6:13:32 [facility] HospitalMR INTERPRETATION OF OUTSIDE FILMSon 39-48-8646EQ INTERPRETATION OF OUTSIDE FILMSInterpreted By: Nilson Mendez, STUDY: MR INTERPRETATION OF OUTSIDE FILMS; ; 01/30/2025 5:05 am INDICATION: Signs/Symptoms:Interpretation of outside film. 2nd opinion requested by the referring physician. Right lower extremity pain and weakness after epidural injection. COMPARISON: No prior cross-sectional evaluation of the lumbar spine is available at this institution at this time. ACCESSION NUMBER(S): [id number] ORDERING CLINICIAN: DIOGO EDGE TECHNIQUE: Outside institution MRI of the lumbar [...] Nilson Mendez 01/30/2025 9:54 AM Dictation workstation: [id number]ty Hospitals Cleveland Medical CenterPT Coag (PPP) [Time]on 08-28-4631DJR Coag (PPP) [Relative time]1.0 {INR} 0.9 - 1.1[facility] WestInterpretation and review of laboratory resultsNoOur Lady of Mercy Hospital - AndersonUnCleveland Clinic Mercy HospitalINR Coag (PPP) [Relative time]1.7Wnbcgl5.9-1.1The Bellevue HospitalComment on above:Performed By: #### 5902-2 #### RAPHAEL Blanco ([id number]) [facility] [address] [place], [place] [address]Gjpnpix-QQLjw 18-47-7766PP Coag (PPP) [Time]11.0 [facility] HospitalAppearance of UrineOrdered By: PROVIDER TEMP on 01-29-2025 Appearance (U)ClearNormalClearBrecksville Va / Crille HospitalComment on above: Order Comment: Name Collection Type:: Clean-Voided MidstreamPerformed By: #### PT, PTT #### [facility] [address] [place] [address] USABasic Metabolic Panelon 44-38-5511Cisfrljudm Clr Calc Zfwraowa876.71NoSt. Luke's Hospital Physician GroupComment on above:Result Comment: PERFORMED BY: [facility] [address] [place] [address] PATHOLOGIST FIBER ANALYST RYAN ALMARAZ M.D.Performed By: #### CBC, BMP ####[place] [address] [place] [address] USAGFR/1.73 sq M.predicted MDRD (S/P/Bld) [Vol rate/Area]mL/min/{1.73_m2}NormalThe [facility] Physician [facility] CenterComment on above:Performed By: #### CBC, BMP ####[address] [place] [address] USABasophils [#/volume] in Blood by Automated count Ordered By: Winnie Farris on 12-10-0445Uoydwzaij (Bld) [#/Vol]0.1 10*3/uLNormal 0.0-0.2FWayne HospitalComment on above:Result Comment: PERFORMED BY: [facility] [address] [place] [id number] PATHOLOGIST FIBER ANALYST RYAN ALMARAZ M.D.Performed By: #### CBC, BMP ####[address] [place] [address] USABasophils/100 leukocytes in Blood by Automated countOrdered By: Winnie Farris on 80-91-9181Tvadxqbyd/100 WBC (Bld)0.7 %Normal.Brecksville Va / Crille HospitalComment on above:Performed By: #### CBC, BMP ####[address] [address] USABilirubin Test strip Ql (U)Ordered By: SHAHID IZQUIERDO on 40-85-2341Bfdhxzsoz Ql (U)NegativeNegativeBrecksville Va / Crille HospitalCalcium [Mass/volume] in Serum or PlasmaOrdered By: Winnie Farris on 77-52-6888Lmymruj [Mass/Vol]9.5 mg/dL Normal8.6-10.3FWayne HospitalComment on above:Performed By: #### CBC, BMP ####[address] [address] USACarbon dioxide, total [Moles/volume] in Serum or PlasmaOrdered By: Winnie Farris on 31-36-0925ZA9 [Moles/Vol]24.9 mmol/WWcptym03.0-31.0Brecksville Va / Crille HospitalComment on above:Performed By: #### CBC, BMP ####[address] [address] [place] Chloride [Moles/volume] in Serum or PlasmaOrdered By: Winnie Farris on 01-29-2025 Chloride [Moles/Vol]104 mmol/XNzdnbh04-404OlpvycmuoBrecksville Va / Crille Hospital Comment on above:Performed By: #### CBC, BMP ####[place] [address] USAColor of Urine by AutoOrdered By: SHAHID IZQUIERDO on 46-83-3295Omsjf (U)Light-yellowNormalYellowBrecksville Va / Crille HospitalComment on above:Order Comment: Name Collection Type:: Clean- Voided MidstreamPerformed By: #### PT, PTT #### [facility] [address] [place] [address] USAComplete Blood Count Auto Diffon 10-96-0721Fqqb Corpuscular HGB Conc35.2 g/yZTyzcua77.5-35.6The [facility] Physician GroupComment on above:Performed By: #### CBC, BMP ####[place] [address] USAMonocytes/100 WBC (Bld)18.81 %Normal0.00-20.00 [facility] Physician [facility] Medical CenterComment on above:Performed By: #### CBC, BMP ####[place] [address] USANRBC% 0.1 /100{WBC}Normal0-0.5[facility] Physician [facility] CenterComment on above:Performed By: #### CBC, BMP ####[place] [address] USAWhite Blood Count7.7 [CFU]/mLNormal4.1-10.5[facility] Physician [facility] CenterComment on above:Performed By: #### CBC, BMP ####[place] [address] USACreatinine [Mass/volume] in Serum or PlasmaOrdered By: Winnie Farris on 08-14-4449Tctvsbvdod [Mass/Vol]0.81 mg/dL Normal0.70-1.30Brecksville Va / Crille HospitalComment on above:Performed By: #### CBC, BMP ####[place] [address] USAEosinophils [#/volume] in Blood by Automated countOrdered By: Winnie Farris on 46-02-8884Xwnnaqindev (Bld) [#/Vol]0.0 10*3/uLNormal0.0-0.45Brecksville Va / Crille HospitalComment on above:Performed By: #### CBC, BMP ####[address] [place] [address] [place] Eosinophils/100 leukocytes in Blood by Automated countOrdered By: Winnie Farris on 69-48-5955Brsmavvhuxd/100 WBC (Bld)0.3 %Normal.[facility] / Crille HospitalComment on above:Performed By: #### CBC, BMP ####[place] [address] USAErythrocyte distribution width [Ratio] by Automated countOrdered By: Winnie Farris on 46-37-4368Rfdrvpvnzmq distribution width (RBC) [Ratio]15.4 %High12.0-14.8Brecksville Va / Crille HospitalComment on above:Performed By: #### CBC, BMP ####[place] [address] USAErythrocytes [#/volume] in Blood by Automated countOrdered By: Winnie Farris on 46-26-6822PJM (Bld) [#/Vol] 4.18 10*6/uLNormal3.90-5.60B[facility]ville [facility] / Crille HospitalComment on above: Performed By: #### CBC, BMP ####[place] [address] USAGlomerular filtration rate [Volume Rate/Area] in Serum, Plasma or Blood by CreatinineOrdered By: Winnie Farris on 01-29-2025 Glomerular filtration rate [Volume Rate/Area] in Serum, Plasma or Blood by Creatinine> 60.0 mL/MinBrecksville Va / Crille HospitalGlucose [Mass/volume] in Serum or PlasmaOrdered By: Winnie Farris on 86-33-6817Tytfgew [Mass/Vol]145 mg/hCCied06-517NnsqrkfvoBrecksville Va / Crille HospitalComment on above:ADA recommended reference rangeRandom Glucose [...] recommended reference rangePerformed By: #### CBC, BMP ####[facility] [place] [address] USAGlucose [Mass/volume] in Urine by Test stripOrdered By: PROVIDER TEMP on 92-42-8213Nmjzcxe Test strip (U) [Mass/Vol]>=1000 mg/dLHighNoTriHealth Good Samaritan HospitalHematocrit [Volume Fraction] of Blood by Automated countOrdered By: Winnie Farris on 88-45-8808Nevydxxxwl (Bld) [Volume fraction]43.6 %Mnczje68.8-50.0Brecksville Va / Crille HospitalComment on above:Performed By: #### CBC, BMP ####[facility] [place] [address] [place] Hemoglobin Test strip Ql (U)Ordered By: PROVIDER TEMP on 88-58-2450Qdladdmspn Ql (U)NegativeNegSelect Medical Specialty Hospital - Southeast OhioHemoglobin [Mass/volume] in BloodOrdered By: Winnie Farris on 65-80-8438Qpkrlkwzev (Bld) [Mass/Vol]15.4 g/dL Fnbrgf81.0-17.0Brecksville Va / Crille HospitalComment on above:Performed By: #### CBC, BMP ####[facility] [place] [address] USAKetones [Presence] in Urine by Test stripOrdered By: PROVIDER TEMP on 25-18-7884Mqebdla Ql (U)1+NormalNegSelect Medical Specialty Hospital - Southeast OhioComment on above:Order Comment: Name Collection Type:: Clean-Voided MidstreamPerformed By: #### PT, PTT #### [facility] [address] [place] [address] USALeukocyte esterase [Presence] in Urine by Test strip Ordered By: PROVIDER TEMP on 76-58-8109Dgwgwwban esterase Test strip Ql (U) NegativeNormalNegativeFirelands Regional Medical CenterComment on above:Order Comment: Name Collection Type:: Clean-Voided MidstreamPerformed By: #### PT, PTT #### [facility] [address] [place] [address] USALeukocytes [#/volume] corrected for nucleated erythrocytes in Blood by Automated counOrdered By: Winnie Farris on 33-23-9218UAC corrected for nucl RBC Auto (Bld) [#/Vol]7.7 10*3/uL4.1-10.5FWayne HospitalLeukocytes [#/volume] in Blood by Automated countOrdered By: Winnie Farris on 59-41-8785TJG (Bld) [#/Vol]7.7 10*3/uLNormal4.1-10.5FWayne HospitalComment on above:Performed By: #### CBC, BMP ####[place] [address] USALymphocytes [#/volume] in Blood by Automated countOrdered By: Winnie Farris on 01-29-2025 Lymphocytes (Bld) [#/Vol]1.1 10*3/uLNormal1.00-4.8B[facility]ville [facility] / Crille HospitalComment on above:Performed By: #### CBC, BMP ####[place] [address] USALymphocytes/100 leukocytes in Blood by Automated countOrdered By: Winnie Farris on 09-31-3713Ggorljlrxin/100 WBC (Bld)14.4 %Normal.[facility] / Crille HospitalComment on above: Performed By: #### CBC, BMP ####[place] [address] [facility]H [Entitic mass] by Automated countOrdered By: Winnie Farris on 42-49-6645KPF (RBC) [Entitic mass]36.7 ggIrvl09.5-35.2FWayne HospitalComment on above:Performed By: #### CBC, BMP ####[place] [address] [facility] CITYHC Auto (RBC) [Mass/Vol]Ordered By: Winnie Farris on 35-95-9985UEHI (RBC) [Mass/Vol] 35.2 g/dL32.5-35.6FWayne HospitalMCV [Entitic volume] by Automated countOrdered By: Winnie Farris on 53-15-4031NJW (RBC) [Entitic vol] 104.3 aXHqez31.5-101Brecksville Va / Crille HospitalComment on above:Performed By: #### CBC, BMP ####[address] [address] USAMonocyte distribution width [Entitic volume] in Blood by Automated Ordered By: Winnie Farris on 84-23-7586Tuelrshb distribution width Auto (Bld) [Entitic vol]18.81 %0.00-20.00Brecksville Va / Crille HospitalMonocytes [#/volume] in Blood by Automated countOrdered By: Winnie Farris on 01-29-2025 Monocytes (Bld) [#/Vol]0.5 10*3/uLNormal0.0-0.8[facility] Comment on above:Performed By: #### CBC, BMP ####[address] [address] USAMonocytes/100 leukocytes in Blood by Automated countOrdered By: Winnie Farris on 27-84-7717Jrjqemfuy/100 WBC (Bld)6.3 %Normal.[facility] / Crille HospitalComment on above:Performed By: #### CBC, BMP ####[address] [address] USANeutrophils [#/volume] in Blood by Automated countOrdered By: Winnie Farris on 68-73-8002Yeyujxwdvoe (Bld) [#/Vol]6.0 10*3/uLNormal1.8-7.7FWayne HospitalComment on above:Performed By: #### CBC, BMP ####[address] [address] USANeutrophils/100 leukocytes in Blood by Automated countOrdered By: Winnie Farris on 10-23-2025 Neutrophils/100 WBC (Bld)78.3 %Normal.[facility] / Crille HospitalComment on above:Performed By: #### CBC, BMP ####[address] [address] USANitrite Test strip Ql (U)Ordered By: SHAHID IZQUIERDO on 40-51-0337Lyirlda Ql (U)NegativeNegativeBrecksville Va / Crille HospitalNo Panel InformationOrdered By: Winnie Farris on 25-97-6148Jrdxjsqk Creatinine Clearance (Ntjl277.71Brecksville Va / Crille HospitalNucleated erythrocytes [Presence] in Blood by Automated countOrdered By: Winnie Farris on 12-45-3957Qfromgjyq RBC Auto Ql (Bld)0.1 /100{WBC}0-0.5FWayne HospitalPlatelet mean volume [Entitic volume] in Blood by Automated count Ordered By: Winnie Farris on 95-32-4565Gqtrlzzr mean volume (Bld) [Entitic vol] 8.9 fLNormal6.6-10.1FWayne HospitalComment on above:Performed By: #### CBC, BMP ####[address] [address] USAPlatelets [#/volume] in Blood by Automated countOrdered By: Winnie Farris on 46-15-5160Jpzfswvkc (Bld) [#/Vol]133 10*3/uWUnl663-862UsbnyxufyBrecksville Va / Crille HospitalComment on above:Performed By: #### CBC, BMP ####[address] [address] USAPotassium [Moles/volume] in Serum or PlasmaOrdered By: Winnie Farris on 18-19-2510Bxbcixjpq [Moles/Vol]3.9 mmol/LNormal3.5-5.1FWayne HospitalComment on above:Hemolysis is present at a level that could interfere with the result.Contact lab if redraw is requiredResult Comment: Hemolysis is present at a level that could interfere with the result. Contact lab if redraw is requiredPerformed By: #### CBC, BMP ####[address] [address] USAProtein Test strip (U) [Mass/Vol]Ordered By: PROVIDER TEMP on 17-63-1788Eljlhxd (U) [Mass/Vol] NegativeNegativeKettering Health Miamisburgerum or plasma anion gap determinationOrdered By: Winnie Farris on 47-75-2525Ycrvw gap [Moles/Vol]11.0 mmol/LNormal6.0-15.0B[facility] Va / Crille HospitalComment on above:Performed By: #### CBC, BMP ####[facility] [place] [address] USASodium [Moles/volume] in Serum or PlasmaOrdered By: Winnie Farris on 97-07-3071Zssjnh [Moles/Vol]136 mmol/NTazppx260-859SvaqczwlwBrecksville Va / Crille HospitalComment on above:Performed By: #### CBC, BMP ####[address] [place] [address] USASpecific gravity Test strip (U) [Rel density]Ordered By: PROVIDER TEMP on 78-17-4762Zzubdqvk gravity (U) [Rel density]1.0261.001-1.030B[facility]ksville Va / Crille HospitalType and Screenon 81-02-1655QLN and Rh group Nom (Bld)Blood group A Rh(D) positiveNoSt. Luke's Hospital Physician GroupComment on above:Result Comment: PERFORMED BY: [facility] [address] [place] [address] PATHOLOGIST FIBER ANALYST RYAN ALMARAZ M.D.Urea nitrogen [Mass/volume] in Serum or PlasmaOrdered By: Winnie Farris on 40-49-2933Ilqq nitrogen [Mass/Vol]19 mg/dLNormal7-25B[facility]ville Va / Crille HospitalComment on above:Performed By: #### CBC, BMP ####[facility] [place] [address] [place] Urinalysison 56-19-3064Gptsllyqz,UrineNegativeNormalNegativeThe [facility] Physician GroupComment on above:Order Comment: Name Collection Type:: Clean- Voided MidstreamPerformed By: #### PT, PTT #### [place] [id number] USAGlucose Ql (U)>=NormalNormalThe [facility] Physician Group Comment on above:Order Comment: Name Collection Type:: Clean-Voided Midstream Performed By: #### PT, PTT #### [address] [address] USANitrite,UrineNegativeNormalNegativeThe [facility] Physician GroupComment on above:Order Comment: Name Collection Type:: Clean-Voided MidstreamPerformed By: #### PT, PTT #### [place] [address] USAOccult Blood,UrineNegativeNormalNegativeThe [facility] Physician GroupComment on above:Order Comment: Name Collection Type:: Clean- Voided MidstreamResult Comment: PERFORMED BY: [place] [address] PATHOLOGIST FIBER ANALYST RYAN ALMARAZ M.D.Performed By: #### PT, PTT #### [place] [address] USAProtein,UrineNegativeNormalNegativeThe [facility] Physician GroupComment on above:Order Comment: Name Collection Type:: Clean-Voided MidstreamPerformed By: #### PT, PTT #### [place] [address] USASpecificy [place],Urine1.943Dgwxmu1.001-1.030The [facility] Physician GroupComment on above:Order Comment: Name Collection Type:: Clean- Voided MidstreamPerformed By: #### PT, PTT #### [place] [address] USAUrobilinogen,UrineNormalNormalNormalThe [facility] Physician GroupComment on above:Order Comment: Name Collection Type:: Clean- Voided MidstreamPerformed By: #### PT, PTT #### [address] [address] USAUrobilinogen Test strip (U) [Mass/Vol]Ordered By: PROVIDER TEMP on 42-20-7425Ljwagolzpnue (U) [Mass/Vol]Normal mg/dLNormalBrecksville Va / Crille HospitalpH of Urine by Test stripOrdered By: PROVIDER TEMP on 38-30-0173iM (U)5.0 [pH]Normal5.0-9.0Brecksville Va / Crille HospitalComment on above:Order Comment: Name Collection Type:: Clean-Voided MidstreamPerformed By: #### PT, PTT #### [facility] [address] [place] [address] USAMagnetic resonance imaging reportOrdered By: Ap Paul on 89-83-5149Wjszu reportCHILLICOTHE HOSPITAL [place] [address] [place] [address] MRI Report Signed Patient: Esme Kaminski MR#: [id number] : 1960 Acct:[id number] Age/Sex: 64 / M ADM Date: 5 Loc: MR Room: Type: [facility] Attending Dr: Jonathan Samano MD Copies to: Jonathan Samano MD~ Ordering Provider: Jonathan Samano MD Date of Service: 01/27/25 MR/MR lumbar spine wo/w con: M47.26 ([id number]) XR/XR pre/post mri xray: M47.26,G89.29, M54.50 MRI [...] Paul M.D. 01/27/2025 11:01 PM Dictation Location: [place] [address] Transcribed By: [facility] 01/27/252300 Dictated By: Ap Paul MD 01/27/252234 Signed By: 01/27/252300 [facility] Work Phone: xr pre/post mri xrayon 28-52-1492OG pre/post mri xray [facility] [place] [address] [place] [address] MRI Report Signed Patient: Esme Kaminski MR#: [id number] : 1960 Acct:[id number] Age/Sex: 64 / M ADM Date: 01/27/25 Loc: MR Room: Type: [facility] Attending Dr: Jonathan Samano MD Copies to: Jonathan Samano MD Ordering Provider: Jonathan Samano MD Date of Service: 01/27/25 MR/MR lumbar spine wo/w con: M47.26 ([id number]) XR/XR pre/post mri xray: M47.26,G89.29, M54.50 MRI [...] Paul M.D. 01/27/2025 11:01 PM Dictation Location: RADIO-PC-29 Transcribed By: GWEN 01/27/252300 Dictated By: Ap Paul MD 01/27/252234 Signed By: 01/27/252300[facility] Physician GroupX-ray reportOrdered By: Matt Ferrell on 43-41-1905Giddz reportCHILLICOTHE HOSPITAL [facility] [address] [place] [address] XRay Report Signed Patient: Esme Kaminski MR#: [id number] : 1960 Acct:[id number] Age/Sex: 64 / M ADM Date: 5 Loc: [facility] Room: Type: [facility] Attending Dr: Sarai Mendez II, MD Copies to: Sarai Mendez MD~ Ordering Provider: Sarai Mendez MD Date of Service: 01/07/25 XR/XR hip RT min 2V(w/wo pelvis)*: Z96.641 - ([id number]) XR/XR knee RT 3V - NOT FOR [...] Ferrell M.D. 01/07/2025 4:29 PM Dictation Location: RADIO-PC-20 Transcribed By: GWEN 01/07/25 162 Dictated By: Matt Ferrell DO 01/07/251625 Signed By: 01/07/251628 [facility] HospitalXR hip RT min 2V(w/wo pelvis)*on 39-78-8296MG hip RT min 2V(w/wo pelvis)*[facility] [address] [place] [address] XRay Report Signed Patient: Esme Kaminski MR#: [id number] : 1960 Acct:[id number] Age/Sex: 64 / M ADM Date: 01/07/25 Loc: [facility] Room: Type: [facility] Attending Dr: Sarai Mendez II, MD Copies to: Sarai Mendez MD Ordering Provider: Sarai Mendez MD Date of Service: 01/07/25 XR/XR hip RT min 2V(w/wo pelvis)*: Z96.641 - ([id number]) XR/XR knee RT 3V - NOT FOR [...] Ferrell M.D. 01/07/2025 4:29 PM Dictation Location: [place] [address] Transcribed By: [facility] 01/07/25 1629 Dictated By: Matt Ferrell DO 01/07/25 1626 Signed By: 01/07/25 1629[facility] Physician GroupECG [address] [place] 44-20-3222Afcsan sinus rhythm with nonspecific ST-T changes with QTc interval of 448 [facility] Work Phone: activated partial thromboplastin time (aPTT) in platelet poor plasma by coagulation aOrdered By: Casimiro Landaverde on 82-87-3968nPHC Coag (PPP) [Time]24.8 s22.3-36.2FWayne HospitalBasophils Auto (Bld) [#/Vol]Ordered By: Casimiro Landaverde on 76-21-4379Dnldiwswu (Bld) [#/Vol]0.0 10 3/uL0.0-0.1FWayne HospitalBasophils/100 WBC Auto (Bld)Ordered By: Casimiro Landaverde on 62-07-9711Euhwtnldr/100 WBC (Bld)0.3 %0.2-2.0[facility] HospitalEosinophils/100 WBC Auto (Bld)Ordered By: Casimiro Landaverde on 51-50-0246Qndrsiuggxu/100 WBC (Bld)0.1 %Low0.9-7.0[facility] HospitalErythrocyte distribution width Auto (RBC) [Ratio]Ordered By: Casimiro Akhil on 16-27-9531Wtfmbdpyyzg distribution width (RBC) [Ratio]13.7 %11.0-15.0[facility] HospitalGlobulin Calc (S) [Mass/Vol]Ordered By: Casimirosal Landaverde on 61-61-3475Fszrpthr (S) [Mass/Vol]3.4 g/dLBrecksville Va / Crille Hospital Glomerular filtration rate (GFR) estimation in non- AmericanOrdered By: Casimirosal Landaverde 43-76-6557RYH/1.73 sq M.predicted among non-blacks MDRD (S/P/Bld) [Vol rate/Area]mL/min/{1.73_m2}>=60 mL/min/1.73m 2FWayne HospitalHematocrit Auto (Bld) [Volume fraction]Ordered By: Casimiro Akhil on 72-19-6622Fjnlkzggpu (Bld) [Volume fraction]43.4 %42.0-54.0[facility] HospitalHemoglobin [Mass/volume] in BloodOrdered By: Casimiro Akhil 89-19-5447Qwfikvshoi (Bld) [Mass/Vol]15.2 g/dL14.0-18.0[facility] Crille HospitalINR in Platelet poor plasma by Coagulation assayOrdered By: Casimirosal Landaverde on 26-68-3715DMQ Coag (PPP) [Relative time]1.06 {INR}[facility] Regional Medical CenterComment on above:DESIRED INR:2.0-3.0 CONDITIONS NOT LISTED BELOW2.5-3.5 FOR PROSTHETIC HEART VALVE REPLACEMENT2.5-3.5 RECURRENT THROMBOSIS Laboratory - Chemistry and Chemistry - challengeOrdered By: Casimiro Landaverde on 10-50-1693Avowxrfta Ql (U)NegativeNEGATIVEBrecksville Va / Crille Hospital Glucose (U) [Mass/Vol]mg/dLAbnormalNEGATIVEBrecksville Va / [facility] Ketones Ql (U)NegativeNEGATIVEBrecksville Va / Crille HospitalpH (U)7.0 [pH] 5.0-9.0[facility] Miamisburgpecific gravity (U) [Rel density]1.010 1.005-1.025[facility] Crille HospitalUrobilinogen Qn (U)0.2 {Abhijit'U}/dL0.2-1.0[facility] HospitalAlbumin [Mass/Vol]3.7 g/dL 3.4-5.0[facility] HospitalALP [Catalytic activity/Vol]88 U/L46-116 [facility] HospitalALT [Catalytic activity/Vol]58 U/L16-63 [facility] HospitalAST [Catalytic activity/Vol]20 U/L15-37 [facility] HospitalBilirubin [Mass/Vol]1.0 mg/dL0.2-1.0[facility] HospitalCalcium [Mass/Vol]9.0 mg/dL8.5-10.1FWayne HospitalChloride [Moles/Vol]100 mmol/K31-323GvegfvdpcBrecksville Va / Crille HospitalCO2 [Moles/Vol]25.9 mmol/L21.0-32.0[facility] Creatinine [Mass/Vol]0.88 mg/dL0.70-1.30[facility] GFR/1.73 sq M.predicted MDRD (S/P/Bld) [Vol rate/Area]mL/min/{1.73_m2}>=60 mL/min/1.73m 2FWayne HospitalGlucose [Mass/Vol]322 mg/dLHigh 74-106[facility] HospitalPotassium [Moles/Vol]4.2 mmol/L3.5-5.1 [facility] HospitalProtein [Mass/Vol]7.1 g/dL6.4-8.2FWexner Medical Centerodium [Moles/Vol]136 mmol/K164-630FrdsmmuodBrecksville Va / Crille HospitalUrea nitrogen [Mass/Vol]17.0 mg/dL7.0-18.0[facility] HospitalUrea nitrogen/Creatinine [Mass ratio]19.3 mg/mgBrecksville Va / Crille HospitalLaboratory - Hematology and Cell countsOrdered By: Casimiro Landaverde on 01-73-9818Aomxhcbp granulocytes/100 WBC (Bld)1.9 %High0.0-0.5FWayne HospitalLaboratory - Specimen informationOrdered By: Casimiro Landaverde on 73-24-1303Onkeeqbhhj (U)CLEARCLEARFWayne HospitalColor (U)LT. YELLOWYELLOWBrecksville Va / Crille HospitalLaboratory - UrinalysisOrdered By: Casimiro Landaverde on 89-78-2933Wpwywirtf esterase Test strip Ql (U)NegativeNEGATIVE [facility] HospitalMucus Ql (Urine sed)NONE SEENNONE SEENBrecksville Va / Crille HospitalNitrite Ql (U)NegativeNEGATIVEBrecksville Va / Crille HospitalProtein Ql (U)NegativeNEG/TRACEBrecksville Va / Crille HospitalLeukocytes [#/volume] corrected for nucleated erythrocytes in Blood by Automated coun Ordered By: Casimiro Landaverde on 07-91-6190MTW corrected for nucl RBC Auto (Bld) [#/Vol]11.8 10 3/uLHigh4.0-11.0[facility] Cr[facility] HospitalLymphocytes Auto (Bld) [#/Vol]Ordered By: Casimiro Landaverde on 89-27-7890Clnbgewkxsp (Bld) [#/Vol]1.2 10 3/uL1.2-3.8[facility] Crille HospitalLymphocytes/100 WBC Auto (Bld) Ordered By: Casimiro Landaverde on 53-18-0698Pxlwxtkgblm/100 WBC (Bld)9.8 %Low20.5-60.0 [facility] Crille HospitalMCH Auto (RBC) [Entitic mass]Ordered By: Casimiro Landaverde on 43-34-3021KOB (RBC) [Entitic mass]35.1 wtKfvd50.9-34.0[facility] Crille HospitalMCHC Auto (RBC) [Mass/Vol]Ordered By: Casimiro Landaverde on 45-84-1465MIBO (RBC) [Mass/Vol]35.0 g/dL29.9-35.2FWayne HospitalMCV Auto (RBC) [Entitic vol]Ordered By: Casimirosal Landaverde on 63-10-9714XJQ (RBC) [Entitic vol] 100.2 aFKxls59.0-94.0[facility] HospitalMonocytes Auto (Bld) [#/Vol]Ordered By: Casimirosal Landaverde on 35-61-1781Rxudzfswu (Bld) [#/Vol]0.8 10 3/uL 0.3-0.8[facility] HospitalMonocytes/100 WBC Auto (Bld)Ordered By: Casimirosal Landaverde on 45-00-4463Biykhfrbx/100 WBC (Bld)6.7 %1.7-12.0[facility] Crille HospitalNeutrophils Auto (Bld) [#/Vol]Ordered By: Casimirosal Landaverde on 2024 Neutrophils (Bld) [#/Vol]9.6 10 3/uLHigh1.4-6.5FWayne Hospital Neutrophils/100 WBC Auto (Bld)Ordered By: Casimirosal Landaverde on 2024 Neutrophils/100 WBC (Bld)81.2 %High43.0-75.0[facility] HospitalNo Panel InformationOrdered By: Casimirosal Landaverde on 45-15-0862Ctxlt BacteriaNONE SEEN #/HPFNONE [facility] HospitalUrine Culture ReflexedNOBrecksville Va / Crille HospitalUrine Occult BloodNegativeNEGATIVEBrecksville Va / Crille HospitalUrine Other CastsNONE SEEN #/LPFNONE [facility] HospitalUrine Other CrystalsNone Seen #/HPFNone [facility] CenterUrine RBCNONE SEEN #/HPF0-2FWayne HospitalUrine Squamous Epithelial CellsRARE #/LPFNONE/RAREBrecksville Va / Crille Hospital Urine WBCNONE SEEN #/HPFNONE [facility] HospitalEosinophils # (Auto)0.0 10 3/uL0.0-0.7FWayne HospitalImmature Granulocyte # (Auto)0.22 10 3/uLHigh0.00-0.03[facility] Crille HospitalPlatelet mean volume Auto (Bld) [Entitic vol]Ordered By: Casimirosal Landaverde on 77-08-5418Cehmrqhx mean volume (Bld) [Entitic vol]10.4 fL9.5-13.5FWayne Hospital Platelets Auto (Bld) [#/Vol]Ordered By: Casimiro Landaverde on 33-35-0064Epjdkhrrn (Bld) [#/Vol]167 10 3/aD624-411ImbvrqwdwBrecksville Va / Crille HospitalProthrombin time (PT) Ordered By: Casimiro Landaverde on 76-94-7092KD Coag (PPP) [Time]11.2 s9.0-11.6FWayne HospitalRBC Auto (Bld) [#/Vol]Ordered By: Casimiro Landaverde on 09-75-6867SIT (Bld) [#/Vol]4.33 10 6/uLLow4.70-6.10K[facility]tering Health Miamisburgerum or plasma albumin/globulin mass ratioOrdered By: Casimiro Landaverde on 57-09-9620Ynmehib/Globulin [Mass ratio]1.1 {ratio}[facility] Miamisburgerum or plasma anion gap determinationOrdered By: Casimiro Landaverde on 73-10-3434Txsil gap [Moles/Vol]14.3 mmol/LFWayne HospitalECG 12 lead ECGon 68-29-8597YWC 12 lead ECGCHILLIC[place] [address] Electrocardiograph Report Signed Patient: Esme Kaminski MR#: [id number] : 1960 Acct:[id number] Age/Sex: 63 / M ADM Date: 12/09/24 Loc: Room: [address] [place] [address] Type: DIS IN Attending Dr: Antonio Steele [...] in Lateral leads Confirmed by Will Koch ([id number]) on 12/12/2024 5:41:54 PM Referred By: Electronically Signed By: Will Koch Transcribed By: MUS Signed By Will Koch MD 12/12/24 1741[facility] Physician GroupINR in Platelet poor plasma by Coagulation assayOrdered By: Antonio Steele on 37-23-3630UAB Coag (PPP) [Relative time]1.3 {INR}[facility] Memorial HospitalComment on above: INR Therapeutic Range A) [...] heart valves: 3 - 4.5 PERFORMED BY: [facility] [address] [place] [address] PATHOLOGIST FIBER ANALYST RYAN ALMARAZ M.D.Performed By: #### PT ####[facility] [address] [place] [address] USAProthrombin time (PT)Ordered By: Antonio Steele on 62-97-0610FY Coag (PPP) [Time]14.6 sHigh9.0-12.9[facility] Crille HospitalComment on above:A hematocrit value greater than 55% may lead to inaccurate results in coagulation testing. Patientshaving hematocrit values >55% require a special collection tube for coagulation studies. Please c ontact the laboratory at [phone] for redraw instructions.Result Comment: A hematocrit value greater than 55% may lead to inaccurate results in coagulation testing. Patients having hematocrit values >55% require a special collection tube for coagulation studies. Please contact the laboratory at [phone] for redraw instructions.Performed By: #### PT ####[facility] [address] [place] [address] USACarbon dioxide, total [Moles/volume] in Serum or PlasmaOrdered By: Antonio Steele on 74-68-5564RU1 [Moles/Vol]29.5 mmol/L Zelfap29.0-31.0[facility] Crille HospitalComment on above:Performed By: #### LYTES #### [facility] [address] [place] [address] USAChloride [Moles/volume] in Serum or PlasmaOrdered By: Antonio Steele on 77-90-1612Ouyoypij [Moles/Vol]102 mmol/YCvubcq52-997 [facility] HospitalComment on above:Performed By: #### LYTES #### [facility] [address] [place] [id number] USAECG 12 lead ECGon 39-17-9506DIC 12 lead ECGCHILLICOTHE HOSPITAL [place] [address] [place] [address] Electrocardiograph Report Signed Patient: Esme Kaminski MR#: [id number] : 1960 Acct:[id number] Age/Sex: 63 / M ADM Date: 12/09/24 Loc: Room: 5M2543-7 Type: DIS IN Attending Dr: Antonio Steele [...] in Inferior leads Confirmed by Will Koch ([id number]) on 12/12/2024 5:41:52 PM Referred By: Electronically Signed By: Will Koch Transcribed By: MUS Signed By Will Koch MD 12/12/[address] [place] [address] Physician GroupEC 12 lead [facility] [place] [address] Electrocardiograph Report Signed Patient: Esme Kaminski MR#: [id number] : 1960 Acct:[id number] Age/Sex: 63 / M ADM Date: 12/09/24 Loc: Room: [address] [place] [address] Type: DIS IN Attending Dr: nAtonio Steele MD Ordering Provider: Antonio Steele MD [...] QT Abnormal ECG Confirmed by Ada Woodruff ([id number]) on 12/16/2024 2:47:12 PM Referred By: Electronically Signed By: Ada Woodruff Transcribed By: [place] [address] [place] [address] Physician GroupECG 12 lead [facility] Main [place] [id number] Electrocardiograph Report Signed Patient: Esme Kaminski MR#: [id number] : 1960 Acct:[id number] Age/Sex: 63 / M ADM Date: 12/09/24 Loc: Room: [address] [place] [address] Type: ADM IN Attending Dr: Antonio Steele [...] intraventricular conduction delay Confirmed by Will Koch ([id number]) on 12/11/2024 9:11:18 PM Referred By: Electronically Signed By: Will Koch Transcribed By: MUS Signed By Will Koch MD 12/11/242110[facility] Physician GroupPotassium [Moles/volume] in Serum or PlasmaOrdered By: Antonio Steele on 12-52-4968Csenuyyms [Moles/Vol] 4.2 mmol/LNormal3.5-5.1FWayne HospitalComment on above: Performed By: #### LYTES #### [place] [address] USAProthrombin Time INRon 14-68-8291LSM Coag (PPP) [Relative time]1.3 {INR}NormalThe [facility] Physician GroupComment on above:Result Comment: INR Therapeutic [...] heart valves: 3 - 4.5 PERFORMED BY: [place] [address] PATHOLOGIST FIBER ANALYST RYAN S RUFINA M.D.Performed By: #### PT #### [place] [address] USAPT Coag (PPP) [Time]14.4 sHigh9.0-12.9The [facility] Physician GroupComment on above:Result Comment: A hematocrit value greater than 55% may lead to inaccurate results in coagulation testing. Patients having hematocrit values >55% require a special collection tube for coagulation studies. Please contact the laboratory at [phone] for redraw instructions.Performed By: #### PT #### [place] [address] USASerum or plasma anion gap determinationOrdered By: Antonio Steele on 41-08-0441Uwpeo gap [Moles/Vol]8.7 mmol/LNormal6.0-15.0[facility] Cr[facility] HospitalComment on above:Result Comment: PERFORMED BY: [place] [address] PATHOLOGIST FIBER ANALYST RYAN ALMARAZ M.D.Performed By: #### LYTES #### [place] [address] USASodium [Moles/volume] in Serum or PlasmaOrdered By: Antonio Steele on 27-36-4619Tznodt [Moles/Vol]136 mmol/GIzuibq448-893 [facility] Cr[facility] HospitalComment on above:Performed By: #### LYTES #### [place] [address] USAECG 12 lead ECGon 48-78-9464REK 12 lead ECGCHILLICOTHE HOSPITAL [place] [address] [place] [address] Electrocardiograph Report Signed Patient: Esme Kaminski MR#: [id number] : 1960 Acct:[id number] Age/Sex: 63 / M ADM Date: 12/09/24 Loc: Room: [address] [place] [address] Type: ADM IN Attending Dr: Antonio Steele [...] intraventricular conduction delay Confirmed by Will Koch ([id number]) on 12/11/2024 9:10:59 PM Referred By: Electronically Signed By: Will Koch Transcribed By: MUS Signed By Will Koch MD 12/11/[address] [place] [address] Physician GroupECG 12 lead ECGCHILLICOTHE HOSPITAL [place] [address] [place] [address] Electrocardiograph Report Signed Patient: Esme Kaminski MR#: [id number] : 1960 Acct:[id number] Age/Sex: 63 / M ADM Date: 12/09/24 Loc: Room: [address] [place] [address] Type: ADM IN Attending Dr: Antonio Steele [...] change was found Confirmed by Will Koch ([id number]) on 12/11/2024 9:10:42 PM Referred By: Electronically Signed By: Will Koch Transcribed By: MUS Signed By Will Koch MD 12/11/[address] [place] [address] Physician GroupProthrombin Time INRon 30-66-7001XUV Coag (PPP) [Relative time]1.2 {INR}NormalThe [facility] Physician GroupComment on above:Result Comment: INR Therapeutic [...] heart valves: 3 - 4.5 PERFORMED BY: [place] [address] PATHOLOGIST FIBER ANALYST RYAN ALMARAZ M.D.Performed By: #### PT, PTT #### [place] [address] USAPT Coag (PPP) [Time]13.7 sHigh9.0-12.9The [facility] Physician GroupComment on above:Result Comment: A hematocrit value greater than 55% may lead to inaccurate results in coagulation testing. Patients having hematocrit values >55% require a special collection tube for coagulation studies. Please contact the laboratory at [phone] for redraw instructions.Performed By: #### PT, PTT #### [place] [id number] USABasic Metabolic Panelon 87-11-7073Pperx gap [Moles/Vol]8.0 mmol/LNormal6.0-15.0The [facility] Physician GroupComment on above:Performed By: #### LYTES #### [place] [address] USAChloride [Moles/Vol]105 mmol/AZfvpyw84-209Cim [facility] Physician GroupComment on above:Performed By: #### LYTES #### [place] [address] USACO2 [Moles/Vol]27.0 mmol/JGpjxbs13.0-31.0The [facility] Physician GroupComment on above:Performed By: #### LYTES #### [place] [address] USAGFR/1.73 sq M.predicted MDRD (S/P/Bld) [Vol rate/Area] mL/min/{1.73_m2}NormalThe [facility] Physician [facility] CenterComment on above:Performed By: #### LYTES #### [place] [address] USAPotassium [Moles/Vol]4.0 mmol/LNormal3.5-5.1The [facility] Physician [facility] CenterComment on above:Performed By: #### LYTES #### [place] [address] USASodium [Moles/Vol]136 mmol/LQtrddi884-088Qsg [facility] Physician GroupComment on above:Performed By: #### LYTES #### [place] [address] USACalcium [Mass/volume] in Serum or PlasmaOrdered By: Antonio Steele on 21-41-9776Nqpredo [Mass/Vol]8.7 mg/dLNormal8.6-10.3 [facility] Cr[facility] HospitalComment on above:Result Comment: PERFORMED BY: [place] [address] PATHOLOGIST FIBER ANALYST RYAN ALMARAZ M.D.Performed By: #### LYTES #### [place] [address] USACreatinine [Mass/volume] in Serum or PlasmaOrdered By: Antonio Steele on 59-68-4900Jzcjegpgxz [Mass/Vol]0.84 mg/dLNormal0.70-1.30 [facility] HospitalComment on above:Performed By: #### LYTES #### [place] [id number] USAECG 12 lead ECGon 12-82-5474NAO 12 lead ECGCHILLICOTHE HOSPITAL [place] [address] [place] [address] Electrocardiograph Report Signed Patient: Esme Kaminski MR#: [id number] : 1960 Acct:[id number] Age/Sex: 63 / M ADM Date: 12/09/24 Loc: Room: [address] [place] [address] Type: ADM IN Attending Dr: Antonio Stelee MD Ordering Provider: Antonio Steele MD Date [...] QT has lengthened Confirmed by Will Koch ([id number]) on 12/11/2024 9:10:26 PM Referred By: Electronically Signed By: Will Koch Transcribed By: MUS Signed By Will Koch MD 12/11/[address] [place] [address] Physician GroupEC 12 lead ECGCHILLICOTHE HOSPITAL [place] [address] [place] [address] Electrocardiograph Report Signed Patient: Esme Kaminski MR#: [id number] : 1960 Acct:[id number] Age/Sex: 63 / M ADM Date: 12/09/24 Loc: Room: [address] [place] [address] Type: ADM IN Attending Dr: Antonio Steele [...] QT has shortened Confirmed by Will Koch ([id number]) on 12/11/2024 9:10:22 PM Referred By: Electronically Signed By: Will Koch Transcribed By: MUS Signed By Will Koch MD 12/11/[address] [place] [address] Physician [facility] Medical CenterGlomerular filtration rate [Volume Rate/Area] in Serum, Plasma or Blood by CreatinineOrdered By: Antonio Steele on 87-64-9454Ymsgjjepxh filtration rate [Volume Rate/Area] in Serum, Plasma or Blood by Creatinine> 60.0 mL/MinBrecksville Va / [facility]ille Hospital Glucose [Mass/volume] in Serum or PlasmaOrdered By: Antonio Steele on 41-81-1680Erkahea [Mass/Vol]190 mg/pONqnp29-055BavlwrutuBrecksville Va / [facility]ille Hospital Comment on above:ADA recommended reference rangeRandom [...] recommended reference rangePerformed By: #### LYTES #### [facility] [address] [place] [address] USANo Panel InformationOrdered By: Antonio Steele on 88-81-4476Frauwtad Creatinine Clearance (ChemN/[facility], AvonProthrombin Time INRon 88-87-0236KIH Coag (PPP) [Relative time]1.3 {INR} NormalThe [facility] Physician GroupComment on above:Result Comment: INR Therapeutic [...] heart valves: 3 - 4.5 PERFORMED BY: [place] [address] PATHOLOGIST FIBER ANALYST RYAN ALMARAZ M.D.Performed By: #### LYTES #### [facility] [address] [place] [address] USAPT Coag (PPP) [Time]14.9 sHigh9.0-12.9The [facility] Physician GroupComment on above:Result Comment: A hematocrit value greater than 55% may lead to inaccurate results in coagulation testing. Patients having hematocrit values >55% require a special collection tube for coagulation studies. Please contact the laboratory at [phone] for redraw instructions.Performed By: #### LYTES #### [facility] [address] [place] [id number] USAUrea nitrogen [Mass/volume] in Serum or PlasmaOrdered By: Antonio Steele on 51-89-9410Nhku nitrogen [Mass/Vol]15 mg/dLNormal10-31 [facility] Cr[facility] HospitalComment on above:Performed By: #### LYTES #### [facility] [address] [place] [address] USAECG 12 [place] 12-93-4246Onlxcd fibrillation with controlled rate and nonspecific ST-T changesCPACSRegency Hospital Cleveland West Work Phone: X-ray reportOrdered By: Rubio Vazquez on 10-23-2024 Study reportCHILLICOTHE [facility]PITAL [facility] [address] [place] [id number] XRay Report Signed Patient: Esme Kaminski MR#: [id number] : 1960 Acct:[id number] Age/Sex: 63 / M ADM Date: 5 Loc: [facility] Room: Type: [facility] Attending Dr: Sarai Mendez II, MD Copies [...] Vazquez II, MD 10/23/241954 Signed By: 10/23/241955 [facility] Work Phone: XR hip RT min 2V(w/wo pelvis)*on 91-77-9134WJ hip RT min 2V(w/wo pelvis)*[facility] [address] [place] [address] XRay Report Signed Patient: Esme Kaminski MR#: [id number] : 1960 Acct:[id number] Age/Sex: 63 / M ADM Date: 10/23/24 Loc: [facility] Room: Type: [facility] Attending Dr: Sarai Mendez II, MD Copies [...] Rubio Vazquez II, MD 10/23/241954 Signed By: 10/23/241955[facility] Physician GroupBasic Metabolic Panelon 45-82-9717Rtrhsgxvqu Clr Calc Wpjvdzod488.50[facility] Comment on above:Result Comment: PERFORMED BY: [address] [place] [id number] PATHOLOGIST FIBER ANALYST RYAN ALMARAZ M.D.Performed By: #### BMP, CBC ####[address] [address] USAGFR/1.73 sq M.predicted MDRD (S/P/Bld) [Vol rate/Area]mL/min/{1.73_m2}NormalThe [facility] Physician GroupComment on above:Performed By: #### BMP, CBC ####[address] [address] USABasophils [#/volume] in Blood by Automated count Ordered By: Ada Valentin on 55-91-8424Tmpovzoqf (Bld) [#/Vol]0.1 10*3/uLNormal 0.0-0.2FWayne HospitalComment on above:Result Comment: PERFORMED BY: [facility] [address] [place] [address] PATHOLOGIST FIBER ANALYST RYAN ALMARAZ M.D.Performed By: #### BMP, CBC ####[address] [address] USABasophils/100 leukocytes in Blood by Automated countOrdered By: Ada Valentin on 44-48-5582Ugoxnwjri/100 WBC (Bld)0.5 % Normal.[facility] Cr[facility] HospitalComment on above:Performed By: #### BMP, CBC ####[address] [address] [place] Calcium [Mass/volume] in Serum or PlasmaOrdered By: Ada Valentin on 10-01-2024 Calcium [Mass/Vol]8.4 mg/dLLow8.6-10.3FWayne HospitalComment on above:Performed By: #### BMP, CBC ####[place] [address] USACarbon dioxide, total [Moles/volume] in Serum or PlasmaOrdered By: Ada Valentin on 38-44-8738JH8 [Moles/Vol]25.4 mmol/LNormal 21.0-31.0[facility] Cr[facility] HospitalComment on above:Performed By: #### BMP, CBC ####[place] [address] USAChloride [Moles/volume] in Serum or PlasmaOrdered By: Ada Valentin on 74-96-1162Hoicfmcv [Moles/Vol]104 mmol/NSsnbvz93-551HffikaucmBrecksville Va / Crille HospitalComment on above:Performed By: #### BMP, CBC ####[place] [address] USAComplete Blood Count Auto Diff on 33-15-8362Qzrn Corpuscular HGB Conc34.1 g/kDBuumcl52.5-35.6The [facility] Physician [facility] CenterComment on above:Performed By: #### BMP, CBC ####[place] [address] USANRBC%0.1 /100{WBC} Normal0-0.5The [facility] Physician [facility] CenterComment on above:Performed By: #### BMP, CBC ####[address] [place] Blood Count13.7 [CFU]/mLHigh4.1-10.5The [facility] Community HospitalComment on above:Performed By: #### BMP, CBC ####[place] [address] USACreatinine [Mass/volume] in Serum or Plasma Ordered By: Ada Valentin on 23-54-8081Mpluuknveh [Mass/Vol]0.79 mg/dLSignificant change down0.70-1.30[facility] Crille HospitalComment on above:Delta: 1.32 on 09/30/24-1421Performed By: #### BMP, CBC ####[address] [address] USAEosinophils [#/volume] in Blood by Automated countOrdered By: Ada Valentin on 00-02-5704Emnuibeoihi (Bld) [#/Vol]0.1 10*3/uLNormal0.0-0.45[facility]ille HospitalComment on above: Performed By: #### BMP, CBC ####[address] [address] USAEosinophils/100 leukocytes in Blood by Automated countOrdered By: Ada Valentin on 72-58-9693Mtlvogfsqek/100 WBC (Bld)0.9 %Normal. [facility] HospitalComment on above:Performed By: #### BMP, CBC ####[place] [id number] [place] Erythrocyte distribution width [Ratio] by Automated countOrdered By: Ada Valentin on 30-76-1135Peznymcdjmh distribution width (RBC) [Ratio]14.4 %Pjciqr75.0-14.8 [facility] HospitalComment on above:Performed By: #### BMP, CBC ####[address] [address] [place] Erythrocytes [#/volume] in Blood by Automated countOrdered By: Ada Valentin on 24-84-6702RBG (Bld) [#/Vol]4.32 10*6/uLNormal3.90-5.60[facility] HospitalComment on above:Performed By: #### BMP, CBC ####[address] [address] USAGlucose [Mass/volume] in Serum or PlasmaOrdered By: Ada Valentin on 91-16-1392Dbohsyu [Mass/Vol]120 mg/dLHigh 70-100[facility] HospitalComment on above:ADA recommended reference rangeRandom Glucose [...] recommended reference rangePerformed By: #### BMP, CBC ####[facility] [place] [address] USAHematocrit [Volume Fraction] of Blood by Automated countOrdered By: Ada Valentin on 10-01-2024 Hematocrit (Bld) [Volume fraction]44.0 %Ffnomm41.8-50.0[facility] HospitalComment on above:Performed By: #### BMP, CBC ####[address] [address] USAHemoglobin [Mass/volume] in BloodOrdered By: Ada Valentin on 55-92-5958Vjbihiryqy (Bld) [Mass/Vol]15.0 g/wCUrwwsj57.0-17.0[facility] HospitalComment on above:Performed By: #### BMP, CBC ####[address] [address] USALactate [Moles/volume] in Serum or PlasmaOrdered By: Ada Valentin on 31-58-2582Honbqhb [Moles/Vol]1.1 mmol/LNormal0.5-1.9[facility] HospitalComment on above:Lactic Acid reference range has been updated to 0.5 1.9 mmol/L and the critical range of 2.0 or greater.Order Comment: Comment Add onResult Comment: Lactic Acid reference range has been updated to 0.5 ? 1.9 mmol/L and the critical range of 2.0 or greater. PERFORMED BY: [facility] [address] [place] [address] PATHOLOGIST FIBER ANALYST RYAN ALMARAZ M.D.Performed By: #### LACTIC ####[address] [address] USALeukocytes [#/volume] corrected for nucleated erythrocytes in Blood by Automated counOrdered By: Ada Valentin on 31-03-3108XGO corrected for nucl RBC Auto (Bld) [#/Vol]13.7 10*3/uLHigh4.1-10.5 [facility] HospitalLeukocytes [#/volume] in Blood by Automated countOrdered By: Ada Valentin on 82-96-3593XQY (Bld) [#/Vol]13.7 10*3/uLHigh 4.1-10.5FWayne HospitalComment on above:Performed By: #### BMP, CBC ####[facility] [address] [place] [address] USALymphocytes [#/volume] in Blood by Automated countOrdered By: Ada Valentin on 94-46-8755Fceyqaluqbk (Bld) [#/Vol]2.2 10*3/uLNormal1.00-4.8[facility] HospitalComment on above:Performed By: #### BMP, CBC ####[address] [address] USALymphocytes/100 leukocytes in Blood by Automated countOrdered By: Ada Valentin on 10-01-2024 Lymphocytes/100 WBC (Bld)16.2 %Normal.[facility] HospitalComment on above:Performed By: #### BMP, CBC ####[address] [address] [facility] [Entitic mass] by Automated countOrdered By: Ada Valentin on 68-35-1508JSN (RBC) [Entitic mass]34.7 zhFfgztw06.5-35.2 [facility] HospitalComment on above:Performed By: #### BMP, CBC ####[address] [address] [facility] Auto (RBC) [Mass/Vol]Ordered By: Ada Valentin on 46-23-8015JVHM (RBC) [Mass/Vol] 34.1 g/dL32.5-35.6FWayne HospitalMCV [Entitic volume] by Automated countOrdered By: Ada Valentin on 85-23-6893VOD (RBC) [Entitic vol]101.8 zVNrvc13.5-101[facility] HospitalComment on above:Performed By: #### BMP, CBC ####[address] [address] USAMonocytes [#/volume] in Blood by Automated countOrdered By: Ada Valentin on 30-57-0541Yfvzpsqhl (Bld) [#/Vol]1.1 10*3/uLHigh0.0-0.8[facility] HospitalComment on above:Performed By: #### BMP, CBC ####[address] [address] USAMonocytes/100 leukocytes in Blood by Automated countOrdered By: Ada Valentin on 10-01-2024 Monocytes/100 WBC (Bld)7.9 %Normal.[facility] HospitalComment on above:Performed By: #### BMP, CBC ####[address] [address] USANeutrophils [#/volume] in Blood by Automated count Ordered By: Ada Valentin on 54-24-0925Ndcpwrxucsu (Bld) [#/Vol]10.2 10*3/uLHigh 1.8-7.7FWayne HospitalComment on above:Performed By: #### BMP, CBC ####[address] [address] [place] Neutrophils/100 leukocytes in Blood by Automated countOrdered By: Ada Valentin on 74-75-0012Xcpqoveyztq/100 WBC (Bld)74.5 %Normal.[facility] Crille HospitalComment on above:Performed By: #### BMP, CBC ####[address] [address] USANo Panel InformationOrdered By: Ada Valentin on 49-49-3977Ryjppozct GFR (CKD-EPI)> 60.0 mL/MinBrecksville Va / Crille HospitalPharmacy Creatinine Clearance (Mvri210.50[facility] / Crille HospitalNucleated erythrocytes [Presence] in Blood by Automated countOrdered By: Ada Valentin on 25-24-0912Ysodkjgcr RBC Auto Ql (Bld)0.1 /100{WBC}0-0.5FWayne HospitalPlatelet mean volume [Entitic volume] in Blood by Automated countOrdered By: Ada Valentin on 86-76-7227Huuqplki mean volume (Bld) [Entitic vol]9.5 fLNormal6.6-10.1FWayne HospitalComment on above:Performed By: #### BMP, CBC ####[address] [address] USAPlatelets [#/volume] in Blood by Automated countOrdered By: Ada Valentin on 35-84-1486Uikearmjd (Bld) [#/Vol] 161 10*3/uLSignificant change rlua446-046RywtbrufxBrecksville Va / Crille Hospital Comment on above:Delta: 218 on 09/30/24-1421Performed By: #### RAIMUNDO, CBC ####[place] [id number] [place] Potassium [Moles/volume] in Serum or PlasmaOrdered By: Ada Valentin on 10-01-2024 Potassium [Moles/Vol]3.6 mmol/LNormal3.5-5.1FWayne Hospital Comment on above:Performed By: #### BMP, CBC ####[address] [address] USASerum or plasma anion gap determinationOrdered By: Ada Valentin on 12-67-1845Yqmxp gap [Moles/Vol]9.2 mmol/LNormal6.0-15.0[facility] Cr[facility] HospitalComment on above:Performed By: #### BMP, CBC ####[address] [address] USASodium [Moles/volume] in Serum or PlasmaOrdered By: Ada Valentin on 33-57-4648Wrihzc [Moles/Vol]135 mmol/WFcw855-618MwyjcygiiBrecksville Va / Crille HospitalComment on above:Performed By: #### BMP, CBC ####[address] [address] USAUrea nitrogen [Mass/volume] in Serum or PlasmaOrdered By: Ada Valentin on 40-46-6276Cvub nitrogen [Mass/Vol]17 mg/dLNormal-[facility] HospitalComment on above:Performed By: #### BMP, CBC ####[facility] [address] [place] [address] USAAppearance of UrineOrdered By: Radha Medina on 81-65-6078Tjvsvzlxve (U)ClearNormalClearBrecksville Va / Crille HospitalComment on above:Order Comment: Name Collection Type:: Clean-Voided MidstreamPerformed By: #### PT, PTT #### [facility] [address] [place] [address] USABNP ser/plasOrdered By: Radha Medina on 09-30-2024 Natriuretic peptide B (Bld) [Mass/Vol]308.0 pg/mLSummersville Memorial Hospital5B[facility] Crille HospitalComment on above:Result Comment: PERFORMED BY: [facility] [address] [place] [address] PATHOLOGIST FIBER ANALYST RYAN ALMARAZ M.D.Performed By: #### PT #### [facility] [address] [place] [address] USABacteria [Presence] in Urine by AutomatedOrdered By: Radha Medina on 17-26-2807Bdqlidle Auto Ql (U)Rare [HPF]None SeenBrecksville Va / Crille HospitalBasic Metabolic Panelon 19-39-1709Ptjhm gap [Moles/Vol] 13.3 mmol/LNormal6.0-15.0The [facility] Physician GroupComment on above:Performed By: #### PT #### [facility] [address] [place] [address] USACalcium [Mass/Vol]9.3 mg/dLNormal8.6-10.3The [facility] Physician GroupComment on above:Performed By: #### PT #### [facility] [address] [place] [address] USAChloride [Moles/Vol]101 mmol/SGptzgz34-053Kwm [facility] Physician GroupComment on above:Performed By: #### PT #### [place] [address] USACO2 [Moles/Vol]24.7 mmol/ZGnqiot05.0-31.0The [facility] Physician GroupComment on above:Performed By: #### PT #### [facility] [address] [place] [address] USACreatinine [Mass/Vol]1.32 mg/dLSignificant change down 0.70-1.30The [facility] Physician GroupComment on above:Performed By: #### PT #### [place] [address] USACreatinine Clr Calc Bmeqfdlt12.94NormalThe [facility] Physician GroupComment on above:Result Comment: PERFORMED BY: [place] [address] PATHOLOGIST FIBER ANALYST RYAN ALMARAZ M.D.Performed By: #### PT #### [place] [address] USAGFR/1.73 sq M.predicted MDRD (S/P/Bld) [Vol rate/Area] mL/min/{1.73_m2}NormalThe [facility] Physician GroupComment on above:Performed By: #### PT #### [place] [address] USAGlucose [Mass/Vol]171 mg/vJMuet17-809Tnd [facility] Physician GroupComment on above:Result Comment: Random Glucose Reference Range is dependent on time and content of last meal. Glucose of more than 200 mg/dL in a nonstressed, ambulatory subject supports the diagnosis of Diabetes Mellitus. ADA recommended reference rangePerformed By: #### PT #### [place] [address] USAPotassium [Moles/Vol]4.0 mmol/LNormal3.5-5.1The [facility] Physician GroupComment on above:Performed By: #### PT #### [place] [address] USASodium [Moles/Vol]135 mmol/CHeu067-156Tjm [facility] Physician GroupComment on above:Performed By: #### PT #### [facility] [address] [place] [address] USAUrea nitrogen [Mass/Vol]17 mg/dLNormal [facility] Physician GroupComment on above:Performed By: #### PT #### [facility] [address] [place] [address] USABilirubin Test strip Ql (U)Ordered By: Radha Medina on 93-39-2641Fslsouevc Ql (U)NegativeNegativeBrecksville Va / Crille HospitalBlood Cultureon 38-63-7999Ylqqkron identified Cx Nom (Bld)NO GROWTH 5 DAYS PERFORMED BY: [place] [address] PATHOLOGIST FIBER ANALYST RYAN ALMARAZ M.D.NormalBaptist Medical Center Nassau Physician GroupComment on above: Performed By: #### CUBLD, LACTIC ####[facility] [address] [place] [address] USABacteria identified Cx Nom (Bld)NO GROWTH 5 DAYS PERFORMED BY: [place] [address] PATHOLOGIST FIBER ANALYST RYAN ALMARAZ M.D.[facility] Physician GroupComment on above: Performed By: #### CUBLD, LACTIC ####[facility] [address] [place] [address] USACT head/brain wo conon 14-73-1906UN head/brain [place] [address] CT Scan Report Signed Patient: Esme Kaminski MR#: [id number] : 1960 Acct:[id number] Age/Sex: 63 / M ADM Date: 09/30/24 Loc: Room: [address] [place] [address] Type: DIS INOo Attending Dr: Leidy Nuno [...] Paul M.D. 09/30/2024 4:34 PM Dictation Location: [place] [address] Transcribed By: [facility] 09/30/24 1634 Dictated By: Ap Paul MD 09/30/24 1630 Signed By: 09/30/24 1634[facility] Physician GroupColor of Urine by AutoOrdered By: Radha Medina on 21-78-3685Yspws (U)Kettering HealthComment on above:Order Comment: Name Collection Type:: Clean- Voided MidstreamPerformed By: #### PT, PTT #### [place] [address] USAComplete Blood Count Auto Diffon 48-55-8641Dltsbwkxw (Bld) [#/Vol]0.1 10*3/uLNormal0.0-0.2The [facility] Physician GroupComment on above: Result Comment: PERFORMED BY: [place] [address] PATHOLOGIST FIBER ANALYST RYAN ALMARAZ M.D.Performed By: #### PT, PTT #### [place] [address] USABasophils/100 WBC (Bld)0.6 %Normal.The [facility] Physician GroupComment on above:Performed By: #### PT, PTT #### [place] [id number] USAEosinophils (Bld) [#/Vol]0.0 10*3/uLNormal0.0-0.45The [facility] Physician GroupComment on above:Performed By: #### PT, PTT #### [place] [address] USAEosinophils/100 WBC (Bld)0.2 %Normal.The [facility] Physician GroupComment on above:Performed By: #### PT, PTT #### [place] [address] USAErythrocyte distribution width (RBC) [Ratio]14.0 %Normal 12.0-14.8The [facility] Physician GroupComment on above:Performed By: #### PT, PTT #### [place] [address] USAHematocrit (Bld) [Volume fraction]51.1 %High38.8-50.0The [facility] Physician GroupComment on above:Performed By: #### PT, PTT #### [place] [address] USAHemoglobin (Bld) [Mass/Vol]17.3 g/gRBawo51.0-17.0The [facility] Physician GroupComment on above:Performed By: #### PT, PTT #### [place] [address] USALymphocytes (Bld) [#/Vol]1.9 10*3/uLNormal1.00-4.8The [facility] Physician GroupComment on above:Performed By: #### PT, PTT #### [place] [address] USALymphocytes/100 WBC (Bld)11.5 %Normal.The [facility] Physician GroupComment on above:Performed By: #### PT, PTT #### [place] [address] USAMCH (RBC) [Entitic mass]34.4 apXkpkdu92.5-35.2The [facility] Physician GroupComment on above:Performed By: #### PT, PTT #### [place] [address] USAMCV (RBC) [Entitic vol]101.9 mNMuwi76.5-101The [facility] Physician GroupComment on above:Performed By: #### PT, PTT #### [place] [address] USAMean Corpuscular HGB Conc33.8 g/cLMmkyzx54.5-35.6The [facility] Physician GroupComment on above:Performed By: #### PT, PTT #### [place] [address] USAMonocytes (Bld) [#/Vol]0.7 10*3/uLNormal0.0-0.8The [facility] Physician GroupComment on above:Performed By: #### PT, PTT #### [place] [address] USAMonocytes/100 WBC (Bld)22.40 %High0.00-20.00The [facility] Physician GroupComment on above:Result Comment: For adults in ED, MDW > 20.0 may be associated with a higher risk of sepsis during the first 12 hrs of hospital admissionPerformed By: #### PT, PTT #### [place] [address] USAMonocytes/100 WBC (Bld)3.9 %Normal.The [facility] Physician GroupComment on above:Performed By: #### PT, PTT #### [place] [address] USANeutrophils (Bld) [#/Vol]14.2 10*3/uLHigh1.8-7.7The [facility] Physician GroupComment on above:Performed By: #### PT, PTT #### [place] [address] USANeutrophils/100 WBC (Bld)83.8 %Normal.The [facility] Physician GroupComment on above:Performed By: #### PT, PTT #### [place] [address] USANRBC%0.1 /100{WBC}Normal0-0.5The [facility] Comment on above:Performed By: #### PT, PTT #### [facility] [address] [place] [address] USAPlatelet mean volume (Bld) [Entitic vol]9.8 fLNormal 6.6-10.1The [facility] Physician GroupComment on above:Performed By: #### PT, PTT #### [facility] [address] [place] [address] USAPlatelets (Bld) [#/Vol]218 10*3/gWYgkjej263-409Vku [facility] Physician GroupComment on above:Performed By: #### PT, PTT #### [facility] [address] [place] [address] USARBC (Bld) [#/Vol]5.01 10*6/uLNormal3.90-5.60The [facility] Physician GroupComment on above:Performed By: #### PT, PTT #### [facility] [address] [place] [address] USAWBC (Bld) [#/Vol]16.9 10*3/uLHigh4.1-10.5The [facility] Physician GroupComment on above:Performed By: #### PT, PTT #### [place] [address] USAWhite Blood Count16.9 [CFU]/mLHigh4.1-10.5The [facility] Physician GroupComment on above:Performed By: #### PT, PTT #### [place] [address] USACreatine kinase [Enzymatic activity/volume] in Serum or PlasmaOrdered By: Radha Medina on 14-13-8073AO [Catalytic activity/Vol]18 U/L Cvk45-472EbfwczwxxBrecksville Va / Crille HospitalComment on above:Performed By: #### PT #### [place] [address] USADipstick and Microscopicon 97-54-4620Aauwqdec,UrineRare NormalNone SeenThe [facility] Physician GroupComment on above:Order Comment: Name Collection Type:: Clean-Voided MidstreamPerformed By: #### PT, PTT #### [place] [address] USABilirubin,UrineNegativeNormalNegativeThe [facility] Physician GroupComment on above:Order Comment: Name Collection Type:: Clean- Voided MidstreamPerformed By: #### PT, PTT #### [place] [address] USAGlucose Ql (U)70 mg/dLNormalNormalThe [facility] Physician GroupComment on above:Order Comment: Name Collection Type:: Clean-Voided MidstreamPerformed By: #### PT, PTT #### [place] [address] USAHyaline Casts,Uhzfm78-62Przemf5-3Hfn [facility] Physician GroupComment on above:Order Comment: Name Collection Type:: Clean-Voided MidstreamPerformed By: #### PT, PTT #### [place] [address] USAMucus,Urine2+ [LPF]Critically abnormalThe [facility] Physician GroupComment on above:Order Comment: Name Collection Type:: Clean- Voided MidstreamResult Comment: PERFORMED BY: [place] [address] PATHOLOGIST FIBER ANALYST RYAN ALMARAZ M.D.Performed By: #### PT, PTT #### [place] [address] USANitrite,UrineNegativeNormalNegativeBaptist [facility]au Physician GroupComment on above:Order Comment: Name Collection Type:: Clean-Voided MidstreamPerformed By: #### PT, PTT #### [place] [id number] USAOccult Blood,UrineNegativeNormalNegativeThe [facility] Physician GroupComment on above:Order Comment: Name Collection Type:: Clean- Voided MidstreamResult Comment: PERFORMED BY: [place] [address] PATHOLOGIST FIBER ANALYST RYAN ALMARAZ M.D.Performed By: #### PT, PTT #### [place] [address] USARBC,Dizox1-0Kzomkq9-3Ksi [facility] Physician GroupComment on above:Order Comment: Name Collection Type:: Clean-Voided MidstreamPerformed By: #### PT, PTT #### [place] [address] USASpecificy Redmond,Urine1.733Tvdowl0.001-1.030The [facility] Physician GroupComment on above:Order Comment: Name Collection Type:: Clean- Voided MidstreamPerformed By: #### PT, PTT #### [place] [address] USASquamous Epithelial Cell,Fxukx1-7Ugtvvt1-7Emg [facility] Physician GroupComment on above:Order Comment: Name Collection Type:: Clean- Voided MidstreamPerformed By: #### PT, PTT #### [place] [address] USAUrobilinogen,UrineNormalNormalNormalThe [facility] Physician GroupComment on above:Order Comment: Name Collection Type:: Clean- Voided MidstreamPerformed By: #### PT, PTT #### [place] [address] USAWBC,Ddejd2-0Lroqcy0-5Uxr [facility] Physician GroupComment on above:Order Comment: Name Collection Type:: Clean-Voided MidstreamPerformed By: #### PT, PTT #### [place] [address] USAECG 12 lead ECGon 67-30-5793EYM 12 lead ECGCHILLICOTHE [facility] [place] [address] [place] [address] Electrocardiograph Report Signed Patient: Esme Kaminski MR#: [id number] : 1960 Acct:[id number] Age/Sex: 63 / M ADM Date: 09/30/24 Loc: Room: [address] [place] [address] Type: ADM INOo Attending Dr: Leidy Nuno [...] wave abnormality Confirmed by Radha Medina MD ([id number]) on 09/30/2024 9:27:27 PM Referred By: Electronically Signed By: Radha Medina MD Transcribed By: MUS Signed By Radha Medina MD 09/[address] [place] [address] Physician GroupEpithelial cells.squamous [#/area] in Urine sediment by Automated countOrdered By: Radha Medina on 09-30-2024 Epithelial cells.squamous Auto (Urine sed) [#/Area]1-2 [HPF]0-2FWayne HospitalErythrocytes [#/area] in Urine sediment by Automated countOrdered By: Radha Medina on 81-67-4268JBJ Auto (Urine sed) [#/Area]1-2 [HPF]0-4FWayne HospitalGlucose [Mass/volume] in Urine by Test stripOrdered By: Radha Medina on 35-25-1670Rzljddh Test strip (U) [Mass/Vol]70 mg/dLHighNormalBrecksville Va / Crille HospitalHemoglobin Test strip Ql (U) Ordered By: Radha Medina on 19-82-2813Aghysynvgo Ql (U)NegativeNegative [facility] HospitalHyaline casts [#/area] in Urine sediment by Automated countOrdered By: Radha Medina on 97-39-9470Jenrfui casts Auto (Urine sed) [#/Area]20-49 [LPF]High0-8B[facility]ville Va / Crille HospitalINR in Platelet poor plasma by Coagulation assayOrdered By: Radha Medina on 65-32-3360FPF Coag (PPP) [Relative time]1.0 {INR}NormalBrecksville Va / Crille Hospital Comment on above:INR Therapeutic Range A) [...] heart valves: 3 - 4.5 PERFORMED BY: [address] [place] [address] PATHOLOGIST FIBER ANALYST RYAN ALMARAZ M.D.Performed By: #### PT #### [place] [address] USAKetones [Presence] in Urine by Test stripOrdered By: Radha Medina on 77-59-5233Dezuglr Ql (U)NegativeNormalNegativeBrecksville Va / Crille HospitalComment on above:Order Comment: Name Collection Type:: Clean-Voided MidstreamPerformed By: #### PT, PTT #### [facility] [address] [place] [address] USALaboratory - Microbiology and Antimicrobial susceptibility Ordered By: Radha Medina on 45-96-5980Wlwnnwkm identified Cx Nom (Bld)NO GROWTH 5 DAYSBrecksville Va / Crille HospitalBacteria identified Cx Nom (Bld)NO GROWTH 5 DAYSBrecksville Va / Crille HospitalLactic Acidon 50-61-2199Nkhwueo [Moles/Vol]2.2 mmol/LOff scale high0.5-1.9The [facility] Physician GroupComment on above:Result Comment: Critical Result : Called to and read back by: EVELYN TODD at: 09/30/2024 16:27:07 by:[id number] Lactic Acid reference range has been updated to 0.5 ? 1.9 mmol/L and the critical range of 2.0 or greater. PERFORMED BY: [place] [address] PATHOLOGIST FIBER ANALYST RYAN ALMARAZ M.D.Performed By: #### CUBLD, LACTIC ####[facility] [address] [place] [id number] USALactic Acid Reflexon 13-28-9180Zqxarl Acid Reflex2.4 mmol/LOff scale high0.5-1.9The [facility] Physician GroupComment on above:Result Comment: Critical Result : Called to and read back by: SHAHRZAD DIAZ at: 09/30/2024 20:32:04 by: Lactic Acid reference range has been updated to 0.5 ? 1.9 mmol/L and the critical range of 2.0 or greater. PERFORMED BY: [place] [address] PATHOLOGIST FIBER ANALYST RYAN ALMARAZ M.D.Performed By: #### PT, PTT #### [place] [address] USALeukocyte esterase [Presence] in Urine by Test strip Ordered By: Radha Medina on 42-53-1848Yhziilbnb esterase Test strip Ql (U) NegativeNormalNegativeBrecksville Va / Crille HospitalComment on above:Order Comment: Name Collection Type:: Clean-Voided MidstreamPerformed By: #### PT, PTT #### [place] [id number] USALeukocytes [#/area] in Urine sediment by Automated count Ordered By: Radha Medina on 67-33-6978MPZ Auto (Urine sed) [#/Area]1-2 [HPF] 0-4FWayne HospitalMonocyte distribution width [Entitic volume] in Blood by AutomatedOrdered By: Radha Medina on 21-05-5850Vbyiixsq distribution width Auto (Bld) [Entitic vol]22.40 %High0.00-20.00[facility] Cr[facility] HospitalComment on above:For adults in ED, MDW > 20.0 may be associated with a higher risk of sepsis during the first 12 hrs of hospital admissionMucus [Presence] in Urine by AutomatedOrdered By: Radha Medina on 23-06-9876Jjctj Auto Ql (U)2+ [LPF]AbnormalBrecksville Va / Crille Hospital Nitrite Test strip Ql (U)Ordered By: Radha Medina on 09-02-9076Tghavqj Ql (U) NegativeNegativeBrecksville Va / Crille HospitalProtein [Mass/volume] in Urine by Test stripOrdered By: Radha Medina on 01-01-7456Rnctygz (U) [Mass/Vol]20 mg/dLNormalNegativeBrecksville Va / Crille HospitalComment on above:Order Comment: Name Collection Type:: Clean-Voided MidstreamPerformed By: #### PT, PTT #### [facility] [address] [place] [address] USAProthrombin time (PT)Ordered By: Radha Medina on 93-34-1970EM Coag (PPP) [Time]11.8 sNormal9.0-12.9[facility] Crille HospitalComment on above:A hematocrit value greater than 55% may lead to inaccurate results in coagulation testing. Patientshaving hematocrit values >55% require a special collection tube for coagulation studies. Please contact the laboratory at [phone] for redraw instructions.Result Comment: A hematocrit value greater than 55% may lead to inaccurate results in coagulation testing. Patients having hematocrit values >55% require a special collection tube for coagulation studies. Please contact the laboratory at [phone] for redraw instructions.Performed By: #### PT #### [facility] [address] [place] [address] USASpecific gravity Test strip (U) [Rel density]Ordered By: Radha Medina on 79-06-1046Ihuufiho gravity (U) [Rel density]1.0281.001-1.030 [facility] HospitalTroponin I High Sensitivityon 09-30-2024 Troponin I High Nurtpqouemi09Lxieua6-54Zpw [facility] Physician GroupComment on above:Result Comment: The Troponin units of report have been changed to meet the Chest Pain Accreditation requirement, element EC5.M1l2. Troponin units are changed from pg/ml to ng/L. Also, the decimal is removed and results are in whole numbers. PERFORMED BY: [facility] [address] [place] [address] PATHOLOGIST FIBER ANALYST RYAN ALMARAZ M.D.Performed By: #### PT #### [facility] [address] [place] [address] USATroponin I.cardiac [Mass/volume] in Serum or Plasma by Detection limit <= 0.01 ng/mLOrdered By: Radha Medina on 09-04-6830Hbfvyvnt I.cardiac DL <= 0.01 ng/mL [Mass/Vol]12 ng/L0-20[facility] HospitalComment on above:The Troponin units of report have been changed to meet the Chest Pain Accreditation requirement, element EC5.M1l2. Troponin units are changed from pg/ml to ng/L. Also, the decimal is removed and results are in whole numbers.Urine Cultureon 19-58-8435Npuixnqv identified Cx Nom (U)No Growth 2 Days PERFORMED BY: [address] [address] PATHOLOGIST FIBER ANALYST RYAN ALMARAZ M.D.NormalThe [facility] Physician GroupComment on above: Performed By: #### PT, PTT #### [facility] [address] [place] [address] USAUrine cultureOrdered By: Radha Medina on 09-30-2024 Bacteria identified Cx Nom (U)No Growth 2 DaysBrecksville Va / [facility] Hospital Urobilinogen Test strip (U) [Mass/Vol]Ordered By: Radha Medina on 09-30-2024 Urobilinogen (U) [Mass/Vol]Normal mg/dLNormalBrecksville Va / Crille HospitalX- ray reportOrdered By: Alex Castro on 76-43-4022Xmeho reportCHILLICOTHE HOSPITAL [place] [address] [place] [address] XRay Report Signed Patient: Esme Kaminski MR#: [id number] : 1960 Acct:[id number] Age/Sex: 63 / M ADM Date: 5 Loc: ER Room: Type: [facility] ER Attending Dr: Copies to: Radha [...] IMPRESSION: NO ACUTE FINDINGS Impression dictated by: Juan M Wilcox Jr.OBarbara 09/30/2024 2:56 PM Dictation Location: RADIO-PC-22 Transcribed By: GWEN 09/30/241455 Dictated By: Alex Castro Jr DO 09/30/241453 Signed By: 09/30/241455 [facility] HospitalXR chest 1V portableon 13-18-5671RQ chest 1V portableCHILLICOTHE HOSPITAL Main [place] [address] [place] [address] XRay Report Signed Patient: Esme Kaminski MR#: [id number] : 1960 Acct:[id number] Age/Sex: 63 / M ADM Date: 09/30/24 Loc: Room: [address] [place] [address] Type: DIS INOo Attending Dr: Leidy Nuno [...] Jr., D.O. 09/30/2024 2:56 PM Dictation Location: RADIO-PC-22 Transcribed By: GWEN 09/30/241455 Dictated By: Alex Castro Jr DO 09/30/241453 Signed By: 09/30/24 1456[facility] GrouppH of Urine by Test stripOrdered By: Radha Medina on 16-86-7182xG (U)5.5 [pH]Normal5.0-9.0[facility] HospitalComment on above:Order Comment: Name Collection Type:: Clean- Voided MidstreamPerformed By: #### PT, PTT #### [place] [address] USABNP ser/plasOrdered By: Salinas Ascencio on 09-29-2024 Natriuretic peptide B (Bld) [Mass/Vol]417.0 pg/mLSummersville Memorial Hospital5-100[facility] HospitalComment on above:Result Comment: PERFORMED BY: [place] [address] PATHOLOGIST FIBER ANALYST RYAN ALMARAZ M.D.Performed By: #### PT #### [place] [address] USABasic Metabolic Panelon 73-75-7414Fwthjfggxb Clr Calc Ehfdoexf902.50NormalThe [facility] Physician GroupComment on above:Order Comment: FASTING YPerformed By: #### PT #### [place] [address] USAGFR/1.73 sq M.predicted MDRD (S/P/Bld) [Vol rate/Area] mL/min/{1.73_m2}NormalThe [facility] Physician [facility] CenterComment on above:Order Comment: FASTING YPerformed By: #### PT #### [place] [address] USABasophils [#/volume] in Blood by Automated countOrdered By: Salinas Ascencio on 04-40-0189Cekjyeyhb (Bld) [#/Vol]0.1 10*3/uLNormal 0.0-0.2FWayne HospitalComment on above:Result Comment: PERFORMED BY: [place] [address] PATHOLOGIST FIBER ANALYST RYAN ALMARAZ M.D.Performed By: #### PT #### [place] [address] USABasophils/100 leukocytes in Blood by Automated count Ordered By: Salinas Ascencio on 90-51-6593Nweczkkac/100 WBC (Bld)1.0 %Normal .[facility] HospitalComment on above:Performed By: #### PT #### [facility] [address] [place] [address] USACalcium [Mass/volume] in Serum or PlasmaOrdered By: Salinas Ascencio on 33-56-0120Etbuszl [Mass/Vol]8.9 mg/dLNormal8.6-10.3 [facility] HospitalComment on above:Order Comment: FASTING Y Performed By: #### PT #### [facility] [address] [place], [place] [address] USACarbon dioxide, total [Moles/volume] in Serum or Plasma Ordered By: Salinas Ascencio on 84-70-9577FV8 [Moles/Vol]24.6 mmol/LNormal 21.0-31.0[facility] HospitalComment on above:Order Comment: FASTING YPerformed By: #### PT #### [facility] [address] [place] [address] USAChloride [Moles/volume] in Serum or PlasmaOrdered By: Salinas Ascencio on 40-69-6580Blbdoyjv [Moles/Vol]104 mmol/UDnljie88-171 [facility] HospitalComment on above:Order Comment: FASTING Y Performed By: #### PT #### [facility] [address] [place] [address] USACholesterol [Mass/volume] in Serum or PlasmaOrdered By: Salinas Ascencio on 58-65-1743Siruuciziyb [Mass/Vol]194 mg/mATdmlwl164-243 [facility] HospitalComment on above:Chol less than 200 mg/dl low riskChol 201-239 mg/dl borderline riskChol 240 mg/dl and greater high riskOrder Comment: FASTING YResult Comment: Chol less than 200 mg/dl low risk Chol 201-239 mg/dl borderline risk Chol 240 mg/dl and greater high riskPerformed By: #### PT #### [facility] [address] [place] [address] USACholesterol in HDL [Mass/volume] in Serum or PlasmaOrdered By: Salinas Ascencio on 41-68-1492Pjdanuhapwq in HDL [Mass/Vol]36 mg/dL Ofvtqu90-46ZrnkkvzniBrecksville Va / Crille HospitalComment on above:HDL CHOL ATP-III CLASSIFICATION Cardiovascular RiskHDL > or equal to 60 mg/dL LOWHDL < 40 mg/dL HIGHOrder Comment: FASTING YResult Comment: HDL CHOL ATP-III CLASSIFICATION Cardiovascular Risk HDL > or equal to 60 mg/dL LOW HDL < 40 mg/dL HIGHPerformed By: #### PT #### [facility] [address] [place] [address] USACholesterol in LDL Calc [Mass/Vol]Ordered By: Salinas Ascencio on 47-29-9943Lhojvabelly in LDL [Mass/Vol]103 mg/dLHigh0-100[facility] HospitalComment on above:LDL ATP III CLASSIFICATIONLDL less than 100 mg/dL OptimalLDL 100-129 mg/dL Near or above dudmnynVUV297-643 mg/dL Borderline highLDL 160-189 mg/dL HighLDL greater than 189 mg/dL Very high Cholesterol in VLDL Calc [Mass/Vol]Ordered By: Salinas Ascencio on 36-84-5590Lpplrwdfwon in VLDL [Mass/Vol]54 mg/dLBrecksville Va / Crille HospitalComplete Blood Count Auto Diffon 65-37-4550Yjqc Corpuscular HGB Conc33.7 g/fMIrokmp63.5-35.6The [facility] Physician GroupComment on above:Performed By: #### PT #### [facility] [address] [place] [address] USANRBC%0.2 /100{WBC}Normal0-0.5The [facility] Comment on above:Performed By: #### PT #### [facility] [address] [place] [address] USAWhite Blood Count13.0 [CFU]/mLHigh4.1-10.5The [facility] Physician GroupComment on above:Performed By: #### PT #### [facility] [address] [place] [address] USACreatinine [Mass/volume] in Serum or PlasmaOrdered By: Salinas Ascencio on 97-46-9915Rlfrlqyats [Mass/Vol]0.80 mg/dLNormal0.70-1.30 [facility] HospitalComment on above:Order Comment: FASTING Y Performed By: #### PT #### [facility] [address] [place] [address] USAECG 12 lead ECGon 74-02-6343QOU 12 lead ECGCHILLIC[place]HE [place] [address] Electrocardiograph Report Signed Patient: Esme Kaminski MR#: [id number] : 1960 Acct:[id number] Age/Sex: 63 / M ADM Date: 09/29/24 Loc: Room: [address] [place] [address] Type: ADM INOo Attending Dr: Tomy Cabello [...] in Lateral leads Confirmed by Will Koch ([id number]) on 09/29/2024 2:14:15 PM Referred By: Electronically Signed By: Will Koch Transcribed By: MUS Signed By Will Koch MD 09/29/[address] [place] [address] Physician GroupECG 12 lead ECGCHILLICOTHE HOSPITAL Main [place] [id number] Electrocardiograph Report Signed Patient: Esme Kaminski MR#: [id number] : 1960 Acct:[id number] Age/Sex: 63 / M ADM Date: 09/29/24 Loc: Room: [address] [place] [address] Type: ADM INOo Attending Dr: Tomy Cabello [...] undetermined Abnormal ECG Confirmed by Will Koch ([id number]) on 09/29/2024 2:14:06 PM Referred By: Electronically Signed By: Will Koch Transcribed By: MUS Signed By Will Koch MD 09/29/[address] [place] [address] Physician GroupEosinophils [#/volume] in Blood by Automated countOrdered By: Salinas Ascencio on 65-69-1467Ebmpyccolgs (Bld) [#/Vol]0.1 10*3/uLNormal0.0-0.45[facility] HospitalComment on above:Performed By: #### PT #### [facility] [address] [place] [id number] USAEosinophils/100 leukocytes in Blood by Automated count Ordered By: Salinas Ascencio on 14-47-3104Miasvgcptsh/100 WBC (Bld)0.6 % Normal.[facility] HospitalComment on above:Performed By: #### PT #### [facility] [address] [place] [address] USAErythrocyte distribution width [Ratio] by Automated count Ordered By: Salinas Ascencio on 88-64-0147Qvyquphruyi distribution width (RBC) [Ratio]14.3 %Zwisgz08.0-14.8Fire[facility] Regional Medical CenterComment on above:Performed By: #### PT #### [facility] [address] [place] [address] USAErythrocytes [#/volume] in Blood by Automated countOrdered By: Salinas Ascencio on 74-11-9807FEX (Bld) [#/Vol]4.62 10*6/uLNormal 3.90-5.60[facility] HospitalComment on above:Performed By: #### PT #### [facility] [address] [place] [address] USAGlucose [Mass/volume] in Serum or PlasmaOrdered By: Salinas Ascencio on 10-19-1251Dztkwdd [Mass/Vol]91 mg/sKVbxwqg93-343 [facility] HospitalComment on above:ADA recommended reference rangeRandom Glucose [...] recommended reference rangePerformed By: #### PT #### [facility] [address] [place] [address] USAHematocrit [Volume Fraction] of Blood by Automated count Ordered By: Salinas Ascencio on 90-40-2065Hpfwadcndw (Bld) [Volume fraction] 47.6 %Nautor57.8-50.0[facility] HospitalComment on above:Performed By: #### PT #### [facility] [address] [place] [address] USAHemoglobin [Mass/volume] in BloodOrdered By: Salinas Ascencio on 77-00-7175Avwvkvcvzy (Bld) [Mass/Vol]16.0 g/qVFjwqhw98.0-17.0 [facility] HospitalComment on above:Performed By: #### PT #### [facility] [address] [place] [address] USAINR in Platelet poor plasma by Coagulation assayOrdered By: Salinas Ascencio on 41-14-8939ERF Coag (PPP) [Relative time]1.0 {INR} [facility] HospitalComment on above:INR Therapeutic Range A) Pre- [...] 3 - 4.5Performed By: #### LYTES #### [facility] [address] [place] [address] USALeukocytes [#/volume] corrected for nucleated erythrocytes in Blood by Automated counOrdered By: Salinas Ascencio on 32-50-7066TZY corrected for nucl RBC Auto (Bld) [#/Vol]13.0 10*3/uLHigh4.1-10.5FWayne HospitalLeukocytes [#/volume] in Blood by Automated countOrdered By: Salinas Ascencio on 23-28-3761MQN (Bld) [#/Vol]13.0 10*3/uLHigh4.1-10.5 [facility] HospitalComment on above:Performed By: #### PT #### [facility] [address] [place] [address] USALipid Panelon 62-99-1795MYJ Cholesterol,Fckldtqwol662 mg/dLHigh0-100The [facility] Physician GroupComment on above:Order Comment: FASTING YResult Comment: LDL ATP III CLASSIFICATION LDL less than 100 mg/dL Optimal LDL 100-129 mg/dL Near or above optimal LDL 130-159 mg/dL Borderline high LDL 160-189 mg/dL High LDL greater than 189 mg/dL Very highPerformed By: #### PT #### [facility] [address] [place] [address] USATriglyceride w/Lvldms094 mg/dLHigh0-149The [facility] Physician GroupComment on above:Order Comment: FASTING YResult Comment: TRIG ATP III CLASSIFICATION TRIG less than 150 mg/dL Normal TRIG 150-199 mg/dL Borderline high TRIG 200-500 mg/dL High TRIG greater than 500 mg/dL Very high Standard traceable to the Center for Disease Conrtrol and Prevention (CDC) test method.Performed By: #### PT #### [facility] [address] [place] [address] USAVLDL OUEVRJBQUQJ96 mg/dLNormalThe [facility] Physician GroupComment on above:Order Comment: FASTING YPerformed By: #### PT #### [place] [address] USALymphocytes [#/volume] in Blood by Automated countOrdered By: Salinas Ascencio on 23-25-0967Frunvlezify (Bld) [#/Vol]2.2 10*3/uLNormal 1.00-4.8[facility] HospitalComment on above:Performed By: #### PT #### [place] [id number] USALymphocytes/100 leukocytes in Blood by Automated count Ordered By: Salinas Ascencio on 19-88-0192Gsiurocetxb/100 WBC (Bld)16.8 % Normal.[facility] Cr[facility] HospitalComment on above:Performed By: #### PT #### [place] [id number] USAH [Entitic mass] by Automated countOrdered By: Salinas Ascencio on 64-60-3608ZJD (RBC) [Entitic mass]34.7 ifUsbuzf49.5-35.2 [facility] HospitalComment on above:Performed By: #### PT #### [place] [id number] USAMCHC Auto (RBC) [Mass/Vol]Ordered By: Salinas Ascencio on 98-82-3695DVCV (RBC) [Mass/Vol]33.7 g/dL32.5-35.6FWayne HospitalMCV [Entitic volume] by Automated countOrdered By: Salinas Ascencio on 86-45-2644AOE (RBC) [Entitic vol]103.0 zPSeat06.5-101[facility] Crille HospitalComment on above:Performed By: #### PT #### [facility] [address] [place] [address] USAMagnesium [Mass/volume] in Serum or PlasmaOrdered By: Salinas Ascencio on 15-92-8002Whzsbhqom [Mass/Vol]1.6 mg/dLLow1.9-2.7 [facility] HospitalComment on above:Order Comment: FASTING Y Performed By: #### PT #### [place] [address] USAMonocytes [#/volume] in Blood by Automated countOrdered By: Salinas Ascencio on 94-13-2613Ltgjemovz (Bld) [#/Vol]1.1 10*3/uLHigh 0.0-0.8[facility] HospitalComment on above:Performed By: #### PT #### [facility] [address] [place] [address] USAMonocytes/100 leukocytes in Blood by Automated count Ordered By: Salinas Ascencio on 44-55-0130Xbxminqcr/100 WBC (Bld)8.8 %Normal .[facility] Cr[facility] HospitalComment on above:Performed By: #### PT #### [place] [address] USANeutrophils [#/volume] in Blood by Automated countOrdered By: Salinas Ascencio on 94-97-8709Bnpkhjyqygr (Bld) [#/Vol]9.4 10*3/uLHigh 1.8-7.7FWayne HospitalComment on above:Performed By: #### PT #### [place] [id number] USANeutrophils/100 leukocytes in Blood by Automated count Ordered By: Salinas Ascencio on 63-55-4507Bvvdectcyjn/100 WBC (Bld)72.8 % Normal.[facility] Crille HospitalComment on above:Performed By: #### PT #### [facility] [address] [place] [address] USANo Panel InformationOrdered By: Salinas Ascencio on 74-52-4273Ouehanxpq GFR (CKD-EPI)> 60.0 mL/MinBrecksville Va / Crille Hospital Pharmacy Creatinine Clearance (Hscq605.50[facility] Nucleated erythrocytes [Presence] in Blood by Automated countOrdered By: Salinas Ascencio on 79-68-0401Zqgebanrq RBC Auto Ql (Bld)0.2 /100{WBC}0-0.5 [facility] Crille HospitalPartial Thromboplastin Timeon 76-48-5166lZEC Coag (Bld) [Time]23.1 sLow25.1-36.5The [facility] Physician GroupComment on above:Result Comment: A hematocrit value greater than 55% may lead to inaccurate results in coagulation testing. Patients having hematocrit values >55% require a special collection tube for coagulation studies. Please contact the laboratory at [phone] for redraw instructions. PERFORMED BY: [address] [place] [address] PATHOLOGIST FIBER ANALYST RYAN ALMARAZ M.D.Performed By: #### LYTES #### [facility] [address] [place], [place] [address] USAPlatelet mean volume [Entitic volume] in Blood by Automated countOrdered By: Salinas Ascencio on 98-86-9809Mxvuwkat mean volume (Bld) [Entitic vol]9.6 fLNormal6.6-10.1FWayne Hospital Comment on above:Performed By: #### PT #### [facility] [address] [place], [place] [address] USAPlatelets [#/volume] in Blood by Automated countOrdered By: Salinas Ascencio on 03-02-3125Vnrplqtkv (Bld) [#/Vol]184 10*3/uLNormal 150-450[facility] Crille HospitalComment on above:Performed By: #### PT #### [facility] [address] [place] [address] USAPotassium [Moles/volume] in Serum or PlasmaOrdered By: Salinas Ascencio on 68-71-5499Jxwprijyq [Moles/Vol]3.6 mmol/LNormal3.5-5.1 [facility] HospitalComment on above:Hemolysis is present at a level that could interfere with the result.Contact lab if redraw is required Order Comment: FASTING YResult Comment: Hemolysis is present at a level that could interfere with the result. Contact lab if redraw is requiredPerformed By: #### PT #### [facility] [address] [place] [address] USAProthrombin time (PT)Ordered By: Salinas Ascencio on 54-57-8066AG Coag (PPP) [Time]11.5 sNormal9.0-12.9[facility] Crille HospitalComment on above:A hematocrit value greater than 55% may lead to inaccurate results in coagulation testing. Patientshaving hematocrit values >55% require a special collection tube for coagulation studies. Please contact the laboratory at [phone] for redraw instructions.Result Comment: A hematocrit value greater than 55% may lead to inaccurate results in coagulation testing. Patients having hematocrit values >55% require a special collection tube for coagulation studies. Please contact the laboratory at [phone] for redraw instructions.Performed By: #### LYTES #### [facility] [address] [place] [address] USASerum or plasma anion gap determinationOrdered By: Salinas Ascencio on 87-92-8655Exask gap [Moles/Vol]11.0 mmol/LNormal6.0-15.0 [facility] HospitalComment on above:Order Comment: FASTING Y Performed By: #### PT #### [facility] [address] [place] [address] USASerum or plasma total cholesterol/high density lipoprotein (HDL) cholesterol mass ratOrdered By: Salinas Ascencio on 09-29-2024 Cholesterol.total/Cholesterol in HDL [Mass ratio]5.4 {ratio}Normal<5.0[facility] Crille HospitalComment on above:Order Comment: FASTING YResult Comment: PERFORMED BY: [place] [id number] PATHOLOGIST FIBER ANALYST RYAN ALMARAZ M.D.Performed By: #### PT #### [address] [address] USASodium [Moles/volume] in Serum or PlasmaOrdered By: Salinas Ascencio on 33-19-0209Vlcbkl [Moles/Vol]136 mmol/MXlonyu060-152 [facility] Cr[facility] HospitalComment on above:Order Comment: FASTING Y Performed By: #### PT #### [facility] [address] [place] [address] USATriglyceride [Mass/volume] in Serum or PlasmaOrdered By: Salinas Ascencio on 25-33-9422Lmbyunwavibp [Mass/Vol]273 mg/dLHigh0-149 [facility] HospitalComment on above:TRIG ATP III CLASSIFICATIONTRIG less than 150 mg/dL NormalTRIG 150-199 mg/dL Borderline highTRIG 200-500 mg/dL High TRIG greater than 500 mg/dL Very highStandard traceable to the Center for Disease Conrtrol and Prevention (CDC) test method. Troponin I High Sensitivityon 32-93-1334Bkydvswy I High Nvhkbmyztln19Rhddqe9-80 [facility] Physician GroupComment on above:Result Comment: The Troponin units of report have been changed to meet the Chest Pain Accreditation requirement, element EC5.M1l2. Troponin units are changed from pg/ml to ng/L. Also, the decimal is removed and results are in whole numbers. PERFORMED BY: [address] [address] PATHOLOGIST FIBER ANALYST RYAN S RUFINA M.D.Performed By: #### LYTES #### [facility] [address] [place] [address] USATroponin I High Cydicirxzbe22Sefsay3-22Apx [facility] Physician GroupComment on above:Result Comment: The Troponin units of report have been changed to meet the Chest Pain Accreditation requirement, element EC5.M1l2. Troponin units are changed from pg/ml to ng/L. Also, the decimal is removed and results are in whole numbers. PERFORMED BY: [place] [address] PATHOLOGIST FIBER ANALYST RYAN ALMARAZ M.D.Performed By: #### HS TROP ####[facility] [place] [address] USATroponin I High Npoewkpkibk78Ticmht 0-20ThSaint Alphonsus Medical Center - Nampa Physician GroupComment on above:Result Comment: The Troponin units of report have been changed to meet the Chest Pain Accreditation requirement, element EC5.M1l2. Troponin units are changed from pg/ml to ng/L. Also, the decimal is removed and results are in whole numbers. PERFORMED BY: [place] [address] PATHOLOGIST FIBER ANALYST RYAN ALMARAZ M.D.Performed By: #### LYTES #### [address] [address] USATroponin I.cardiac [Mass/volume] in Serum or Plasma by Detection limit <= 0.01 ng/mLOrdered By: Salinas Ascencio on 09-29-2024 Troponin I.cardiac DL <= 0.01 ng/mL [Mass/Vol]10 ng/L0-20[facility] HospitalComment on above:The Troponin units of report have been changed to meet the Chest Pain Accreditation requirement, element EC5.M1l2. Troponin units are changed from pg/ml to ng/L. Also, the decimal is removed and results are in whole numbers.Urea nitrogen [Mass/volume] in Serum or PlasmaOrdered By: Salinas Ascencio on 91-10-2456Rsnz nitrogen [Mass/Vol]20 mg/dLNormal7-25 [facility] HospitalComment on above:Order Comment: FASTING Y Performed By: #### PT #### [facility] [address] [place] [id number] USAaPTT in Platelet poor plasma by Coagulation assayOrdered By: Salinas Ascencio on 74-04-2368rURF Coag (PPP) [Time]23.1 sLow25.1-36.5 [facility] HospitalComment on above:A hematocrit value greater than 55% may lead to inaccurate results in coagulation testing. Patientshaving hematocrit values >55% require a special collection tube for coagulation studies. Please contact the laboratory at [phone] for redraw instructions. Basophils Auto (Bld) [#/Vol]Ordered By: Fang Zhu on 88-54-4880Clryjjkwq (Bld) [#/Vol]0.1 10 3/uL0.0-0.1FWayne HospitalBasophils/100 WBC Auto (Bld)Ordered By: Fang Zhu on 53-77-6261Vijsmpsnz/100 WBC (Bld)0.4 % 0.2-2.0[facility] Cr[facility] HospitalEosinophils/100 WBC Auto (Bld)Ordered By: Fang Zhu on 31-74-1394Ufnnmlsnjpl/100 WBC (Bld)0.1 %Low0.9-7.0[facility] Crille HospitalErythrocyte distribution width Auto (RBC) [Ratio]Ordered By: Fang Zhu on 87-03-4570Satkmkhhmnf distribution width (RBC) [Ratio]13.0 % 11.0-15.0[facility] Crille HospitalEstimated glomerular filtration rate (GFR) non- AmericanOrdered By: Fang hZu on 13-38-1672LFW/1.73 sq M.predicted among non-blacks MDRD (S/P/Bld) [Vol rate/Area]58 mL/min/{1.73_m2} Low>=60 mL/min/1.73m 2FWayne HospitalGlobulin Calc (S) [Mass/Vol]Ordered By: Fang Zhu on 60-74-9437Yrxsathr (S) [Mass/Vol]3.9 g/dL [facility] Crille HospitalHematocrit Auto (Bld) [Volume fraction]Ordered By: Fang Zhu on 15-40-5080Cwqggsfiwd (Bld) [Volume fraction]49.1 %42.0-54.0 [facility] HospitalHemoglobin [Mass/volume] in BloodOrdered By: Fang Zhu on 23-90-7419Mwabfcsifv (Bld) [Mass/Vol]17.1 g/dL14.0-18.0[facility] HospitalINR in Platelet poor plasma by Coagulation assayOrdered By: Fang Zhu on 33-88-4034SZU Coag (PPP) [Relative time]1.09 {INR}[facility] HospitalComment on above:DESIRED INR:2.0-3.0 CONDITIONS NOT LISTED BELOW2.5-3.5 FOR PROSTHETIC HEART VALVE REPLACEMENT2.5-3.5 RECURRENT THROMBOSISLaboratory - Chemistry and Chemistry - challengeOrdered By: Fang Zhu on 26-17-6882Dixbxvw [Mass/Vol]4.0 g/dL3.4-5.0[facility] HospitalALP [Catalytic activity/Vol]74 U/W66-758HvcoheakjBrecksville Va / Crille Hospital ALT [Catalytic activity/Vol]53 U/C39-21QcelxvkocBrecksville Va / Crille HospitalAST [Catalytic activity/Vol]28 U/F19-58MljmdpjmhBrecksville Va / Crille HospitalBilirubin [Mass/Vol]1.5 mg/dLHigh0.2-1.0[facility] HospitalCalcium [Mass/Vol]9.2 mg/dL8.5-10.1FWayne HospitalChloride [Moles/Vol] 100 mmol/L54-946FiviyvkhvBrecksville Va / Crille HospitalCO2 [Moles/Vol]24.1 mmol/L 21.0-32.0[facility] HospitalCreatinine [Mass/Vol]1.25 mg/dL 0.70-1.30[facility] HospitalGFR/1.73 sq M.predicted MDRD (S/P/Bld) [Vol rate/Area]mL/min/{1.73_m2}>=60 mL/min/1.73m 2FWayne HospitalGlucose [Mass/Vol]229 mg/cSAwee26-891Jjzmpeqaw [facility] Potassium [Moles/Vol]4.0 mmol/L3.5-5.1FWayne HospitalProtein [Mass/Vol]7.9 g/dL6.4-8.2FWexner Medical Centerodium [Moles/Vol]137 mmol/W338-847ZunfaeytaBrecksville Va / Crille HospitalUrea nitrogen [Mass/Vol]30.0 mg/dL High7.0-18.0[facility] HospitalUrea nitrogen/Creatinine [Mass ratio]24.0 mg/mgBrecksville Va / Crille HospitalLaboratory - Hematology and Cell countsOrdered By: Fang Zhu on 83-55-9023Dcfbqbdq granulocytes/100 WBC (Bld)0.7 %High0.0-0.5FWayne HospitalLeukocytes [#/volume] corrected for nucleated erythrocytes in Blood by Automated counOrdered By: Fang Zhu on 96-90-6016GSR corrected for nucl RBC Auto (Bld) [#/Vol]15.1 10 3/uLHigh4.0-11.0[facility] HospitalLymphocytes Auto (Bld) [#/Vol] Ordered By: Fang Zhu on 48-32-8229Ndqgqltoyov (Bld) [#/Vol]1.7 10 3/uL1.2-3.8 [facility] HospitalLymphocytes/100 WBC Auto (Bld)Ordered By: Fang Zhu on 59-69-6346Kcbgngamudb/100 WBC (Bld)11.0 %Low20.5-60.0[facility] HospitalH Auto (RBC) [Entitic mass]Ordered By: Fang Zhu on 73-10-6621KUH (RBC) [Entitic mass]34.4 tjPlnd27.9-34.0[facility] HospitalMCHC Auto (RBC) [Mass/Vol]Ordered By: Fang Zhu on 37-84-0459VTRM (RBC) [Mass/Vol]34.8 g/dL29.9-35.2FWayne HospitalMCV Auto (RBC) [Entitic vol]Ordered By: Fang Zhu on 34-66-5009GUA (RBC) [Entitic vol]98.8 fL High80.0-94.0[facility] HospitalMonocytes Auto (Bld) [#/Vol] Ordered By: [facility] on 25-63-1355Jbmqmnrcy (Bld) [#/Vol]0.5 10 3/uL0.3-0.8 [facility] HospitalMonocytes/100 WBC Auto (Bld)Ordered By: Fang Audra on 62-46-6283Itvotehus/100 WBC (Bld)3.4 %1.7-12.0[facility] HospitalNeutrophils Auto (Bld) [#/Vol]Ordered By: [facility] Audra on 09-28-2024 Neutrophils (Bld) [#/Vol]12.8 10 3/uLHigh1.4-6.5FWayne HospitalNeutrophils/100 WBC Auto (Bld)Ordered By: Fang Audra on 09-28-2024 Neutrophils/100 WBC (Bld)84.4 %High43.0-75.0[facility] HospitalNo Panel InformationOrdered By: [facility] on 82-74-7044Zzpfamfb I High Sensitivity9.5 pg/mL4.0-76.1FWayne HospitalComment on above: CUT-OFF POINTS HAVE BEEN [...] DIAGNOSTIC AND CLINICAL INFORMATION.Eosinophils # (Auto)0.0 10 3/uL0.0-0.7FWayne HospitalImmature Granulocyte # (Auto)0.11 10 3/uLHigh0.00-0.03[facility] HospitalPlatelet mean volume Auto (Bld) [Entitic vol]Ordered By: Fang Zhu on 98-57-2301Ftiwwkjs mean volume (Bld) [Entitic vol]11.0 fL9.5-13.5 [facility]ille HospitalPlatelets Auto (Bld) [#/Vol]Ordered By: Fang Zhu on 53-90-4903Ubwdksxkd (Bld) [#/Vol]265 10 3/rP224-572CsmrcjxbmBrecksville Va / Crille HospitalProthrombin time (PT)Ordered By: Fang Zhu on 14-23-8934HF Coag (PPP) [Time]11.5 s9.0-11.6FWayne HospitalRBC Auto (Bld) [#/Vol]Ordered By: Fang Zhu on 10-09-6109CWK (Bld) [#/Vol]4.97 10 6/uL 4.70-6.10[facility] Miamisburgerum or plasma albumin/globulin mass ratioOrdered By: Fang Zhu on 31-97-8199Mgjrnxn/Globulin [Mass ratio]1.0 {ratio}[facility] Miamisburgerum or plasma anion gap determination Ordered By: Fang Zhu on 11-33-6486Ymppi gap [Moles/Vol]16.9 mmol/LFWayne HospitalCNPNon 10-25-7258TAFXXunlmalfx (RHEUAV) ESME KAMINSKI ([id number]) 1960 M Date Time Provider Department 09/13/24 HELADIO PINEDA RHEUASil During your visit today, we recorded the [...] MA 09/26/2024 12:56 PM Signed LMTCB Debra Gee RN 09/26/2024 3:36 PM Signed Pt returning call Read message below Voiced understanding No further questions Allergies As of Date: 09/13/2024 (No Known Allergies) Date Reviewed: 09/13/2024 Reviewed by: Heladio Pineda MD - Fully Assessed Reason for Visit: Orders [921] Appointment [186] Prescriptions as of 09/26/2024 - [...] 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 [Z79*01/05/2023 CHENCHO positive [R76.8] 01/05/2023 Bilateral hand swelling [M79.89] 01/05/2023 Chronic pain of both knees [M25.561, M25.562, G*03/05/2023 Leg weakness, bilateral [R29.898] 06/30/2024 Encounter Status:Closed by DEBRA GEE on 09/26/24NoFisher-Titus Medical CenterCarbon dioxide, total [Moles/volume] in Serum or PlasmaOrdered By: Antonio Steele on 41-63-1634ZQ8 [Moles/Vol]Carbon dioxide, total [Moles/volume] in Serum or Wdbpdb71.0-31.0[facility] HospitalCO2 [Moles/Vol]26.3 mmol/FRhvowv04.0-31.0[facility] HospitalComment on above:Performed By: #### DIMITRIOS #### [facility] [address] [place], [place] [id number] USAChloride [Moles/volume] in Serum or PlasmaOrdered By: Antonio Steele on 95-38-5898Bdsgcmvj [Moles/Vol]Chloride [Moles/volume] in Serum or XkveikMyi47-916NlysaegvfBrecksville Va / Crille HospitalChloride [Moles/Vol]96 mmol/AWgr35-924MhnmsfmpzBrecksville Va / Crille HospitalComment on above:Performed By: #### LYCORNELL #### [facility] [address] [place], [place] [id number] USAECG 12 lead ECGon 34-19-7154ITL 12 lead ECGCHILLICOTHE [facility] Main [place] [address] [place] [address] Electrocardiograph Report Signed Patient: Esme Kaminski MR#: [id number] : 1960 Acct:[id number] Age/Sex: 63 / M ADM Date: 09/09/24 Loc: Room: Type: [facility] Attending Dr: Antonio Steele MD Ordering Provider: [...] is now present Confirmed by Will Koch ([id number]) on 09/09/2024 11:28:31 AM Referred By: Electronically Signed By: Will Koch Transcribed By: MUS Signed By Will Koch MD 09/09/24 1128[facility] Physician GroupECG post procedureon 09-09-2024 ECG post procedureCHILLICOT[facility] [place] [address] [place] [address] Electrocardiograph Report Signed Patient: Esme Kaminski MR#: [id number] : 1960 Acct:[id number] Age/Sex: 63 / M ADM Date: 09/09/24 Loc: Room: Type: [facility] Attending Dr: Antonio Steele MD Ordering Provider: [...] in Lateral leads Confirmed by Ada Woodruff ([id number]) on 09/09/2024 5:08:22 PM Referred By: Electronically Signed By: Ada Woodruff Transcribed By: MUS Signed By Ada Woodruff MD [address] [place] [address] Physician GroupPotassium [Moles/volume] in Serum or PlasmaOrdered By: Antonio Steele on 74-97-1304Jmddpjhyb [Moles/Vol]Potassium [Moles/volume] in Serum or Plasma3.5-5.1FWayne Hospital Potassium [Moles/Vol]4.0 mmol/LNormal3.5-5.1FWayne Hospital Comment on above:Performed By: #### LYTES #### [place] [address] USASerum or plasma anion gap determinationOrdered By: Antonio Steele on 59-36-8026Oavlz gap [Moles/Vol]Serum or plasma anion gap determination6.0-15.0[facility] HospitalAnion gap [Moles/Vol]14.7 mmol/LNormal6.0-15.0[facility] Cr[facility] HospitalComment on above:Result Comment: PERFORMED BY: [facility] [address] [id number] PATHOLOGIST FIBER ANALYST RYAN ALMARAZ M.D.Performed By: #### DIMITRIOS #### [facility] [address] [id number] USASodium [Moles/volume] in Serum or PlasmaOrdered By: Antonio Steele on 96-21-3975Mirwsb [Moles/Vol]Sodium [Moles/volume] in Serum or GpkbizMwa152-083ZdnqjrmmxKettering Health Miamisburgodium [Moles/Vol]133 mmol/VQtd081-823SlpaytcrwBrecksville Va / Crille HospitalComment on above:Performed By: #### DIMITRIOS #### [facility] [address] [id number] USACNPNon 07-91-3003OKYOCvldepoat (ADIELULN) ESME KAMINSKI ([id number]) 1960 M Date Time Provider Department 08/31/24 HELADIO PINEDA During your visit today, we recorded the following information about you: Heladio Pineda MD 08/31/2024 1:10 PM Signed Please call patent To schedule nonfasting labs Active in 07/2024. Ok to complete at [facility] [place]. Please schedule earlier follow up visit for PMR May offer [facility] (virtual/phone only) 09/13/24 and 10/11/24 are open. Thank you. 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/05/2023 group home current use of 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 [Z79*01/05/2023 CHENCHO positive [R76.8] 01/05/2023 Bilateral hand swelling [M79.89] 01/05/2023 Chronic pain of both knees [M25.561, M25.562, G*03/05/2023 Leg weakness, bilateral [R29.898] 06/30/2024 Encounter Status:Closed by ILEANA STRONG on 09/02/24[facility] [address] 55-30-2503Hsxaxe fibrillation with controlled rate with old inferior [facility] Work Phone: [facility] Work Phone: alanine aminotransferase [Enzymatic activity/volume] in Serum or PlasmaOrdered By: Lydia Connelly on 66-01-2902HRJ [Catalytic activity/Vol]Alanine aminotransferase [Enzymatic activity/volume] in Serum or Plasma[address]ALT [Catalytic activity/Vol]86 U/LH00 Browning StreetComment on above:Performed By: #### LYTES #### [facility] [address] [place] [address] USAAlbumin [Mass/volume] in Serum or Plasma by Bromocresol green (BCG) dye binding methoOrdered By: Lydia Connelly on 23-86-4262Fiilcvc BCG dye [Mass/Vol]Albumin [Mass/volume] in Serum or Plasma by Bromocresol green (BCG) dye binding metho3.5-5.7FWayne HospitalAlbumin BCG dye [Mass/Vol]3.5 g/dL3.5-5.7FWayne HospitalAlkaline phosphatase [Enzymatic activity/volume] in Serum or PlasmaOrdered By: Lydia Connelly on 90-54-6974WRN [Catalytic activity/Vol]Alkaline phosphatase [Enzymatic activity/volume] in Serum or Lpuuse22-239Swgzhfmzm[address] [place], [place] [address]ALP [Catalytic activity/Vol]73 U/FUextjo96-799Ynvzbqblg[address] [place] [address] Comment on above:Performed By: #### LYTES #### [place] [address] USAAspartate aminotransferase [Enzymatic activity/volume] in Serum or PlasmaOrdered By: Lydia Connelly on 15-59-2623HHC [Catalytic activity/Vol]Aspartate aminotransferase [Enzymatic activity/volume] in Serum or Jmvcny62-73Jfenozwbk[address] [place], [place] [address]AST [Catalytic activity/Vol]31 U/L Twhsjr92-53Jyxsdaywm[address] [place], [place] [address]Comment on above:Performed By: #### LYTES #### [facility] [address] [place] [address] USABasophils Auto (Bld) [#/Vol]Ordered By: Lydia Connelly on 01-29-0151Akcgnghjl (Bld) [#/Vol]Automated basophil count0.0-0.2FWayne HospitalBasophils [#/volume] in Blood by Automated countOrdered By: Lydia Connelly on 50-51-2340Kxqdqcncb (Bld) [#/Vol]0.1 10*3/uLNormal0.0-0.2 [facility] Cr[facility] HospitalComment on above:Result Comment: PERFORMED BY: [facility] [address] [place] [address] PATHOLOGIST FIBER ANALYST OSCAR HAY M.D.Performed By: #### LYTES #### [facility] [address] [id number] USABasophils/100 WBC Auto (Bld)Ordered By: Lydia Connelly on 90-79-9588Knzrpoemx/100 WBC (Bld)Automated basophil %.[facility] HospitalBasophils/100 leukocytes in Blood by Automated countOrdered By: Lydia Connelly on 98-79-9889Yediazjze/100 WBC (Bld)0.8 %Normal.[facility] Crille HospitalComment on above:Performed By: #### LYTES #### [facility] [address] [id number] USABilirubin.total [Mass/volume] in Serum or PlasmaOrdered By: Lydia Connelly on 83-63-6460Blxhmcxmd [Mass/Vol]Bilirubin.total [Mass/volume] in Serum or PlasmaHigh0.3-1.0[facility] Crille HospitalComment on above: Samples from patients who have taken Naproxen have shown spurious elevation in Total Bilirubin levels. A metabolite of Naproxen, O-desmethylnaproxen, has been shown to interfere with the Jendrassik-Grof method for measuring Total Bilirubin.Bilirubin [Mass/Vol]1.4 mg/dLHigh0.3-1.0[facility] Cr[facility] HospitalComment on above:Samples from patients who have [...] method for measuring Total Bilirubin.Performed By: #### LYTES #### [facility] [address] [id number] USACalcium [Mass/volume] in Serum or PlasmaOrdered By: Lydia Connelly on 20-72-4832Dleekpy [Mass/Vol]Calcium [Mass/volume] in Serum or Plasma8.6-10.3FWayne HospitalCalcium [Mass/Vol]8.9 mg/dLNormal 8.6-10.3FWayne HospitalComment on above:Performed By: #### LYTES #### [facility] [address] [place] [address] USACarbon dioxide, total [Moles/volume] in Serum or Plasma Ordered By: Lydia Connelly on 72-87-3072YW9 [Moles/Vol]Carbon dioxide, total [Moles/volume] in Serum or Vvnmxd87.0-31.0[facility] HospitalCO2 [Moles/Vol]25.4 mmol/OFjnrdz19.0-31.0[facility] Crille HospitalComment on above:Performed By: #### LYTES #### [place] [address] USAChloride [Moles/volume] in Serum or PlasmaOrdered By: Lydia Connelly on 64-30-9518Pjkalcdi [Moles/Vol]Chloride [Moles/volume] in Serum or Amgtdh45-627IshgqxphmBrecksville Va / Crille HospitalChloride [Moles/Vol]102 mmol/L Lonizh96-755HcjiveyzmBrecksville Va / Crille HospitalComment on above:Performed By: #### LYTES #### [facility] [address] [place] [address] USAComplete Blood Count Auto Diffon 13-91-9222Etob Corpuscular HGB Conc33.9 g/gIEamgta46.5-35.6[facility] Physician GroupComment on above:Performed By: #### LYTES #### [facility] [address] [place] [address] USANRBC%0.1 /100{WBC}Normal0-0.5[facility] Comment on above:Performed By: #### LYTES #### [facility] [address] [place] [address] USAComprehensive Metabolic Panelon 81-49-0009Wjncgdh [Mass/Vol]3.5 g/dLNormal3.5-5.7[facility] Physician [facility] CenterComment on above: Performed By: #### LYTES #### [facility] [address] [place] [address] USACreatinine Clr Calc Byuspyvg268.44NormalThe [facility] Physician [facility] CenterComment on above:Performed By: #### LYTES #### [place] [address] USAGFR/1.73 sq M.predicted MDRD (S/P/Bld) [Vol rate/Area] mL/min/{1.73_m2}NormalThe [facility] Physician [facility] CenterComment on above:Performed By: #### LYTES #### [place] [address] USACreatinine [Mass/volume] in Serum or PlasmaOrdered By: Lydia Connelly on 23-99-3177Aonpfevxan [Mass/Vol]Creatinine [Mass/volume] in Serum or Plasma0.70-1.30[facility] HospitalCreatinine [Mass/Vol]0.76 mg/dLNormal0.70-1.30[facility] HospitalComment on above:Performed By: #### LYTES #### [place] [address] USAEosinophils Auto (Bld) [#/Vol]Ordered By: Lydia Connelly on 58-76-3323Swynjksowlv (Bld) [#/Vol]Automated eosinophil count0.0-0.45[facility] Cr[facility] HospitalEosinophils [#/volume] in Blood by Automated countOrdered By: Lydia Connelly on 57-42-3482Ldttyukgyxl (Bld) [#/Vol]0.1 10*3/uLNormal 0.0-0.45[facility] HospitalComment on above:Performed By: #### LYTES #### [place] [address] USAEosinophils/100 WBC Auto (Bld)Ordered By: Lydia Connelly on 18-88-4093Splevysffkr/100 WBC (Bld)Automated eosinophil %.[facility] HospitalEosinophils/100 leukocytes in Blood by Automated countOrdered By: Lydia Connelly on 94-78-3114Ebitiboybhh/100 WBC (Bld)1.1 %Normal.[facility] Cr[facility] HospitalComment on above:Performed By: #### LYTES #### [place] [address] USAErythrocyte distribution width Auto (RBC) [Ratio]Ordered By: Lydia Connelly on 37-00-4865Gtljkwwzjlz distribution width (RBC) [Ratio] Erythrocyte distribution width [Ratio] by Automated count12.0-14.8[facility] Crille HospitalErythrocyte distribution width [Ratio] by Automated count Ordered By: Lydia Connelly on 41-40-4958Evlzcrswwgy distribution width (RBC) [Ratio]13.8 %Kzifav74.0-14.8[facility] Crille HospitalComment on above: Performed By: #### LYTES #### [facility] [address] [place] [address] USAErythrocytes [#/volume] in Blood by Automated countOrdered By: Lydia Connelly on 32-10-0333CWW (Bld) [#/Vol]4.79 10*6/uLNormal3.90-5.60 [facility] Cr[facility] HospitalComment on above:Performed By: #### ARRONTES #### [place] [address] USAGlobulin Calc (S) [Mass/Vol]Ordered By: Lydia Connelly on 56-80-4593Abqgvbtt (S) [Mass/Vol]Serum globulin measurement by calculation (mass/volume)[facility] HospitalGlucose [Mass/volume] in Serum or PlasmaOrdered By: Lydia Connelly on 72-29-6452Jkyguaa [Mass/Vol]Glucose [Mass/volume] in Serum or NweyvyNyay39-081JfqeqdhxuBrecksville Va / Crille Hospital Comment on above:ADA recommended reference rangeRandom Glucose Reference Range is dependent on time and content of last meal. Glucose of more than 200 mg/dL in a nonstressed, ambulatory subject supports the diagnosisof Diabetes Mellitus. Glucose [Mass/Vol]148 mg/kEDoct17-642LhsnbvnnxBrecksville Va / Crille HospitalComment on above:ADA recommended reference rangeRandom Glucose [...] recommended reference rangePerformed By: #### LYTES #### [facility] [address] [id number] USAHematocrit Auto (Bld) [Volume fraction]Ordered By: Lydia Connelly on 07-51-1736Ygvoskdpmt (Bld) [Volume fraction]Hematocrit [Volume Fraction] of Blood by Automated pugfwDsgz49.8-50.0[facility] Hematocrit [Volume Fraction] of Blood by Automated countOrdered By: Lydia Connelly on 71-59-6846Qyvhnrmets (Bld) [Volume fraction]50.5 %High38.8-50.0[facility] Cr[facility] HospitalComment on above:Performed By: #### LYTES #### [facility] [address] [address] USAHemoglobin [Mass/volume] in BloodOrdered By: Lydia Connelly on 91-60-7048Jbuoqascok (Bld) [Mass/Vol]Hemoglobin [Mass/volume] in BloodHigh 13.0-17.0[facility] HospitalHemoglobin (Bld) [Mass/Vol]17.1 g/dL High13.0-17.0[facility] Cr[facility] HospitalComment on above:Performed By: #### LYTES #### [facility] [address] [id number] USALeukocytes [#/volume] corrected for nucleated erythrocytes in Blood by Automated counOrdered By: Lydia Connelly on 92-93-0721YPJ corrected for nucl RBC Auto (Bld) [#/Vol]Leukocytes [#/volume] corrected for nucleated erythrocytes in Blood by Automated coun4.1-10.5FWayne Hospital WBC corrected for nucl RBC Auto (Bld) [#/Vol]9.6 10*3/uL4.1-10.5FWayne HospitalLeukocytes [#/volume] in Blood by Automated countOrdered By: Lydia Connelly on 96-45-2206RFY (Bld) [#/Vol]9.6 10*3/uLNormal4.1-10.5 [facility] Cr[facility] HospitalComment on above:Performed By: #### LYTES #### [facility] [address] [place] [address] USALymphocytes Auto (Bld) [#/Vol]Ordered By: Lydia Connelly on 40-44-9430Gjtgaxtwkhf (Bld) [#/Vol]Lymphocytes [#/volume] in Blood by Automated count1.00-4.8[facility] Crille HospitalLymphocytes [#/volume] in Blood by Automated countOrdered By: Lydia Connelly on 20-14-4423Agxdbkjayhr (Bld) [#/Vol] 1.4 10*3/uLNormal1.00-4.8[facility] HospitalComment on above: Performed By: #### LYTES #### [facility] [address] [place] [address] USALymphocytes/100 WBC Auto (Bld)Ordered By: Lydia Connelly on 93-62-2216Dxvddhrvvwh/100 WBC (Bld)Lymphocytes/100 leukocytes in Blood by Automated count.[facility] HospitalLymphocytes/100 leukocytes in Blood by Automated countOrdered By: Lydia Connelly on 13-02-1156Kgxluxzjvnt/100 WBC (Bld)15.1 %Normal.[facility] Cr[facility] HospitalComment on above: Performed By: #### LYTES #### [address] Auto (RBC) [Entitic mass]Ordered By: Lydia Connelly on 24-18-2717BDV (RBC) [Entitic mass]MCH [Entitic mass] by Automated countHigh 27.5-35.2FWayne HospitalMCH [Entitic mass] by Automated count Ordered By: Lydia Connelly on 64-06-6695PBJ (RBC) [Entitic mass]35.8 pgHigh 27.5-35.2FWayne HospitalComment on above:Performed By: #### LYTES #### [facility] [address] [place] [address] USAMCHC Auto (RBC) [Mass/Vol]Ordered By: Lydia Connelly on 45-09-5997IEPP (RBC) [Mass/Vol]MCHC [Mass/volume] by Automated count32.5-35.6 [facility] HospitalHC (RBC) [Mass/Vol]33.9 g/dL32.5-35.6 [facility] HospitalMCV Auto (RBC) [Entitic vol]Ordered By: Lydia Connelly on 51-50-1384PPM (RBC) [Entitic vol]MCV [Entitic volume] by Automated count High83.5-101B[facility]ille HospitalMCV [Entitic volume] by Automated countOrdered By: Lydia Connelly on 90-61-1523QKJ (RBC) [Entitic vol]105.5 fLHigh 83.5-101B[facility] Crille HospitalComment on above:Performed By: #### LYTES #### [facility] [address] [place] [address] USAMagnesium [Mass/volume] in Serum or PlasmaOrdered By: Lydia Connelly on 22-85-5373Vtzhyctrl [Mass/Vol]Magnesium [Mass/volume] in Serum or PlasmaLow1.9-2.7FWayne HospitalMagnesium [Mass/Vol]1.6 mg/dLLow1.9-2.7FWayne HospitalComment on above:Result Comment: PERFORMED BY: [place] [address] PATHOLOGIST FIBER ANALYST OSCAR HAY M.D.Performed By: #### LYTES #### [facility] [address] [place] [address] USAMonocytes Auto (Bld) [#/Vol]Ordered By: Lydia Connelly on 36-50-9482Ldulfvitl (Bld) [#/Vol]Automated blood monocyte count0.0-0.8[facility]ille HospitalMonocytes [#/volume] in Blood by Automated countOrdered By: Lydia Connelly on 52-28-1049Mlvbgkcie (Bld) [#/Vol]0.7 10*3/uLNormal0.0-0.8 [facility] HospitalComment on above:Performed By: #### ARRONTES #### [facility] [address] [place] [address] USAMonocytes/100 WBC Auto (Bld)Ordered By: Lydia Connelly on 56-89-9012Lqzbbzgkd/100 WBC (Bld)Automated monocyte %.[facility] HospitalMonocytes/100 leukocytes in Blood by Automated countOrdered By: Lydia Connelly on 23-82-7305Bwdwqvmod/100 WBC (Bld)7.6 %Normal.[facility] Crille HospitalComment on above:Performed By: #### LYTES #### [facility] [address] [place], [place] [id number] USANM kacie perf SPECT rest stron 67-64-2833TX kacie perf SPECT rest [facility] [address] Nuclear Medicine Report Signed Patient: Esme Kaminski MR#: [id number] : 1960 Acct:[id number] Age/Sex: 63 / M ADM Date: 08/11/24 Loc: Room: [address] [place] [address] Type: ADM INOo Attending Dr: Lydia Connelly MD Copies to: Lala Arce MD, [facility] MD Lydia Guajardo MD Ordering Provider: Lala Arce MD, [facility] Date of Service: 08/12/24 NM/NM kacie perf [...] Woodruff M.D. 08/13/2024 1:02 PM Dictation Location: [place] [address] Transcribed By: GWEN 08/13/24 1302 Dictated By: Ada Woodruff MD 08/13/24 1258 Signed By: 08/13/24 1302[facility] GroupNeutrophils Auto (Bld) [#/Vol] Ordered By: Lydia Connelly on 22-31-2326Swtmgnqalmz (Bld) [#/Vol]Neutrophils [#/volume] in Blood by Automated count1.8-7.7[facility] Neutrophils [#/volume] in Blood by Automated countOrdered By: Lydia Connelly on 14-27-3780Ffvbgmxkbto (Bld) [#/Vol]7.2 10*3/uLNormal1.8-7.7FWayne HospitalComment on above:Performed By: #### LYTES #### [place] [id number] USANeutrophils/100 WBC Auto (Bld)Ordered By: Lydia Connelly on 21-02-2579Gyurrawyqjl/100 WBC (Bld)Automated neutrophil %.[facility] Crille HospitalNeutrophils/100 leukocytes in Blood by Automated countOrdered By: Lydia Connelly on 55-44-2079Tbwrohjvftt/100 WBC (Bld)75.4 %Normal.[facility] Crille HospitalComment on above:Performed By: #### LYTES #### [place] [id number] USANo Panel InformationOrdered By: Lydia Connelly on 08-13-2024 Estimated GFR (CKD-EPI)> 60.0 mL/MinBrecksville Va / Crille HospitalPharmacy Creatinine Clearance (Yudk488.44B[facility]ille HospitalNucleated erythrocytes [Presence] in Blood by Automated countOrdered By: Lydia Connelly on 88-03-0880Pnxtscfvy RBC Auto Ql (Bld)Nucleated erythrocytes [Presence] in Blood by Automated count0-0.5FWayne HospitalNucleated RBC Auto Ql (Bld)0.1 /100{WBC}0-0.5FWayne HospitalPlatelet mean volume Auto (Bld) [Entitic vol]Ordered By: Lydia Connelly on 94-33-8568Bqtlabip mean volume (Bld) [Entitic vol]Platelet mean volume [Entitic volume] in Blood by Automated count6.6-10.1FWayne HospitalPlatelet mean volume [Entitic volume] in Blood by Automated countOrdered By: Lydia Connelly on 58-47-0541Khjgaptb mean volume (Bld) [Entitic vol]9.1 fLNormal6.6-10.1FWayne HospitalComment on above:Performed By: #### LYTES #### [facility] [address] [place] [address] USAPlatelets Auto (Bld) [#/Vol]Ordered By: Lydia Connelly on 42-79-2170Jgkovsfsi (Bld) [#/Vol]Platelets [#/volume] in Blood by Automated rnila607-946EyquitakzBrecksville Va / Crille HospitalPlatelets [#/volume] in Blood by Automated countOrdered By: Lydia Connelly on 38-22-5725Ocaucqpzz (Bld) [#/Vol]160 10*3/sBVxekhw345-496Djuezhsmh[address] [place], [place] [address]Comment on above:Performed By: #### LYTES #### [facility] [address] [place] [address] USAPotassium [Moles/volume] in Serum or PlasmaOrdered By: Lydia Connlely on 10-57-1432Mokndmcwl [Moles/Vol]Potassium [Moles/volume] in Serum or Plasma3.5-5.1FWayne HospitalComment on above:Hemolysis is present at a level that could interfere with the result.Contact lab if redraw is requiredPotassium [Moles/Vol]3.9 mmol/LNormal3.5-5.1FWayne HospitalComment on above:Hemolysis is present at a level that could interfere with the result.Contact lab if redraw is requiredResult Comment: Hemolysis is present at a level that could interfere with the result. Contact lab if redraw is requiredPerformed By: #### LYTES #### [place] [id number] USAProtein [Mass/volume] in Serum or PlasmaOrdered By: Lydia Connelly on 00-25-3463Hetglvz [Mass/Vol]Protein [Mass/volume] in Serum or PlasmaLow6.4-8.9[facility] HospitalProtein [Mass/Vol]6.1 g/dLLow 6.4-8.9[facility] Crille HospitalComment on above:Performed By: #### DIMITRIOS #### [place] [id number] USARBC Auto (Bld) [#/Vol]Ordered By: Lydia Connelly on 04-07-4144ZQY (Bld) [#/Vol]Erythrocytes [#/volume] in Blood by Automated count 3.90-5.60[facility]tering Health Miamisburgerum globulin measurement by calculation (mass/volume)Ordered By: Lydia Connelly on 47-55-3100Mhjvkwhc (S) [Mass/Vol]2.6 g/dLNormalBrecksville Va / Crille HospitalComment on above: Performed By: #### LYTES #### [facility] [address] [place] [address] USASerum or plasma albumin/globulin mass ratioOrdered By: Lydia Connelly on 00-01-2231Nayldeh/Globulin [Mass ratio]Serum or plasma albumin/globulin mass ratioBrecksville Va / Crille HospitalAlbumin/Globulin [Mass ratio]1.3 {ratio}NormalBrecksville Va / Crille HospitalComment on above: Performed By: #### LYTES #### [facility] [address] [place], [place] [id number] USASerum or plasma anion gap determinationOrdered By: Lydia Connelly on 72-31-6378Rlgmb gap [Moles/Vol]Serum or plasma anion gap determination 6.0-15.0[facility]ille HospitalAnion gap [Moles/Vol]11.5 mmol/LNormal 6.0-15.0[facility] Crille HospitalComment on above:Performed By: #### LYTES #### [place] [address] USASodium [Moles/volume] in Serum or PlasmaOrdered By: Lydia Connelly on 89-78-2488Anschu [Moles/Vol]Sodium [Moles/volume] in Serum or FoarnzQoc662-206XlmqndyeqKettering Health Miamisburgodium [Moles/Vol]135 mmol/LLow 136-145B[facility] Crille HospitalComment on above:Performed By: #### LYTES #### [place] [address] USAUrea nitrogen [Mass/volume] in Serum or PlasmaOrdered By: Lydia Connelly on 49-37-3626Hdvt nitrogen [Mass/Vol]Urea nitrogen [Mass/volume] in Serum or Plasma10-31[facility] Crille HospitalUrea nitrogen [Mass/Vol]19 mg/dLNormal10-31[facility] Crille HospitalComment on above:Performed By: #### LYTES #### [facility] [address] [place] [address] USAWBC Auto (Bld) [#/Vol]Ordered By: Lydia Connelly on 98-06-5190SXN (Bld) [#/Vol]Leukocytes [#/volume] in Blood by Automated count 4.1-10.5FWayne HospitalA1C with Estimated Average Gluon 51-78-5690Vkiadzs [Mass/Vol]174 mg/dLNoSt. Luke's Hospital Physician GroupComment on above:Result Comment: PERFORMED BY: [place] [address] PATHOLOGIST FIBER ANALYST MOHAMED M EL-FAKHARANY M.D.Performed By: #### LIPID, MG, CMP, A1C WT eA, CBC ####[facility] [address] [place] [address] USABlood estimated average glucose determination by estimation from glycated hemoglobin Ordered By: Lydia Connelly on 36-93-9423Vugqbsi glucose Estimated from glycated hemoglobin (Bld) [Mass/Vol]Glucose mean value [Mass/volume] in Blood Estimated from glycated hemoglobinBrecksville Va / Crille HospitalAverage glucose Estimated from glycated hemoglobin (Bld) [Mass/Vol]174 mg/dLBrecksville Va / Crille HospitalCholesterol [Mass/volume] in Serum or PlasmaOrdered By: Lydia Connelly on 70-55-1612Qvizgbatlll [Mass/Vol]Cholesterol [Mass/volume] in Serum or Jwttov662-965FwzjlnnesBrecksville Va / Crille HospitalComment on above:Chol less than 200 mg/dl low riskChol 201-239 mg/dl borderline riskChol 240 mg/dl and greater high riskCholesterol [Mass/Vol]167 mg/rHLzspgi899-038PajpyzggkBrecksville Va / Crille HospitalComment on above:Chol less than 200 mg/dl low riskChol 201-239 mg/dl borderline riskChol 240 mg/dl and greater high riskResult Comment: Chol less than 200 mg/dl low risk Chol 201-239 mg/dl borderline risk Chol 240 mg/dl and greater high riskPerformed By: #### LIPID, MG, CMP, A1C WTH eA, CBC ####[facility] [address] [place] [address] USACholesterol in HDL [Mass/volume] in Serum or PlasmaOrdered By: Lydia Connelly on 72-33-0872Ufxwnyiolpq in HDL [Mass/Vol]Serum or plasma high density lipoprotein (HDL) cholesterol bqxsdqozhof18-88Ssgjkncmb[address] [place] [address] Comment on above:HDL CHOL ATP-III CLASSIFICATION Cardiovascular RiskHDL > or equal to 60 mg/dL LOWHDL < 40 mg/dL HIGHCholesterol in HDL [Mass/Vol]45 mg/dL Sgyxur21-77Quntduwgq[address] [place], [place] [address]Comment on above:HDL CHOL ATP-III CLASSIFICATION Cardiovascular RiskHDL > or equal to 60 mg/dL LOWHDL < 40 mg/dL HIGHResult Comment: HDL CHOL ATP-III CLASSIFICATION Cardiovascular Risk HDL > or equal to 60 mg/dL LOW HDL < 40 mg/dL HIGHPerformed By: #### LIPID, MG, CMP, A1C WTH eA, CBC ####[facility] Rrn[address] Cholesterol in LDL Calc [Mass/Vol]Ordered By: Lydia Connelly on 08-12-2024 Cholesterol in LDL [Mass/Vol]Cholesterol in LDL [Mass/volume] in Serum or Plasma by calculationBrecksville Va / Crille HospitalComment on above:LDL ATP III CLASSIFICATIONLDL less than 100 mg/dL OptimalLDL 100-129 mg/dL Near or above rbvuluxHZE324-634 mg/dL Borderline highLDL 160-189 mg/dL HighLDL greater than 189 mg/dL Very highCholesterol in LDL [Mass/Vol]86 mg/dL0Brecksville Va / Crille HospitalComment on above:LDL ATP III CLASSIFICATIONLDL less than 100 mg/dL OptimalLDL 100-129 mg/dL Near or above uowycyqJDA212-832 mg/dL Borderline highLDL 160-189 mg/dL HighLDL greater than 189 mg/dL Very highCholesterol in VLDL Calc [Mass/Vol]Ordered By: Lydia Connelly on 24-21-4233Dmwdzqriudg in VLDL [Mass/Vol]Cholesterol in VLDL [Mass/volume] in Serum or Plasma by calculation [facility] Cr[facility] HospitalCholesterol in VLDL [Mass/Vol]35 mg/dLBrecksville Va / Crille HospitalComplete Blood Count Auto Diffon 93-98-8989Sgvvvvgcb (Bld) [#/Vol]0.1 10*3/uLNormal0.0-0.2The [facility] Physician GroupComment on above:Result Comment: PERFORMED BY: [facility] [address] [place] [address] PATHOLOGIST FIBER ANALYST OSCAR HAY M.D.Performed By: #### LIPID, MG, CMP, A1C WTH eA, CBC ####[facility] Basophils/100 WBC (Bld)0.8 %Normal.The [facility] Physician GroupComment on above:Performed By: #### LIPID, MG, CMP, A1C WTH eA, CBC ####[place] [address] USAEosinophils (Bld) [#/Vol]0.1 10*3/uLNormal0.0-0.45The [facility] Physician GroupComment on above:Performed By: #### LIPID, MG, CMP, A1C WTH eA, CBC ####[place] [address] USAEosinophils/100 WBC (Bld)0.7 %Normal.The [facility] Physician GroupComment on above:Performed By: #### LIPID, MG, CMP, A1C WTH eA, CBC ####[place] [address] USAErythrocyte distribution width (RBC) [Ratio]13.7 %Nfxnir46.0-14.8The [facility] Physician GroupComment on above:Performed By: #### LIPID, MG, CMP, A1C WTH eA, CBC ####[place] [address] USAHematocrit (Bld) [Volume fraction]50.3 %High38.8-50.0The [facility] Physician GroupComment on above:Performed By: #### LIPID, MG, CMP, A1C WTH eA, CBC ####[place] [address] [place] Hemoglobin (Bld) [Mass/Vol]17.3 g/gSQrzb01.0-17.0The [facility] Comment on above:Performed By: #### LIPID, MG, CMP, A1C WTH eA, CBC ####[place] [address] [place] Lymphocytes (Bld) [#/Vol]1.5 10*3/uLNormal1.00-4.8The [facility] Comment on above:Performed By: #### LIPID, MG, CMP, A1C WTH eA, CBC ####[place] [address] [place] Lymphocytes/100 WBC (Bld)14.1 %Normal.The [facility] Physician GroupComment on above:Performed By: #### LIPID, MG, CMP, A1C WTH eA, CBC ####[address] (RBC) [Entitic mass]35.7 oyDaha90.5-35.2The [facility] Physician GroupComment on above:Performed By: #### LIPID, MG, CMP, A1C WTH eA, CBC ####[address] (RBC) [Entitic vol]103.6 mPZbwg13.5-101The [facility] Physician GroupComment on above:Performed By: #### LIPID, MG, CMP, A1C WTH eA, CBC ####[place] [address] USAMean Corpuscular HGB Conc34.5 g/eDYttjeu01.5-35.6The [facility] Physician GroupComment on above:Performed By: #### LIPID, MG, CMP, A1C WTH eA, CBC ####[place] [address] [place] Monocytes (Bld) [#/Vol]0.5 10*3/uLNormal0.0-0.8The [facility] Comment on above:Performed By: #### LIPID, MG, CMP, A1C WTH eA, CBC ####[place] [address] USA Monocytes/100 WBC (Bld)5.0 %Normal.The [facility] Physician GroupComment on above:Performed By: #### LIPID, MG, CMP, A1C WTH eA, CBC ####[place] [address] USANeutrophils (Bld) [#/Vol]8.2 10*3/uLHigh1.8-7.7The [facility] Physician GroupComment on above:Performed By: #### LIPID, MG, CMP, A1C WTH eA, CBC ####[place] [address] USANeutrophils/100 WBC (Bld)79.4 %Normal.The [facility] Physician GroupComment on above:Performed By: #### LIPID, MG, CMP, A1C WTH eA, CBC ####[place] [address] USANRBC%0.1 /100{WBC}Normal0-0.5The [facility] Physician GroupComment on above:Performed By: #### LIPID, MG, CMP, A1C WTH eA, CBC ####[place] [address] USAPlatelet mean volume (Bld) [Entitic vol]9.1 fLNormal6.6-10.1The [facility] Physician GroupComment on above: Performed By: #### LIPID, MG, CMP, A1C WTH eA, CBC ####[place] [address] USAPlatelets (Bld) [#/Vol]169 10*3/rJChuree490-707Gmx [facility] Physician GroupComment on above:Performed By: #### LIPID, MG, CMP, A1C WTH eA, CBC ####[place] [address] USARBC (Bld) [#/Vol]4.86 10*6/uLNormal3.90-5.60 The [facility] Physician GroupComment on above:Performed By: #### LIPID, MG, CMP, A1C WTH eA, CBC ####[place] [address] USAWBC (Bld) [#/Vol]10.3 10*3/uLNormal4.1-10.5The [facility] Physician GroupComment on above:Performed By: #### LIPID, MG, CMP, A1C WTH eA, CBC ####[address] Comprehensive Metabolic Panelon 88-97-1483Ranxyer [Mass/Vol]3.9 g/dLNormal 3.5-5.7The [facility] Physician GroupComment on above:Performed By: #### LIPID, MG, CMP, A1C WTH eA, CBC ####[facility] [place] [address] USAAlbumin/Globulin [Mass ratio]1.3 {ratio}NormalThe [facility] Physician GroupComment on above:Performed By: #### LIPID, MG, CMP, A1C WTH eA, CBC ####[place] [address] [place] [address] USAALP [Catalytic activity/Vol]84 U/PUcmuft84-783Mmo [facility] Physician GroupComment on above:Performed By: #### LIPID, MG, CMP, A1C WTH eA, CBC ####[place] [address] [place] [address] USAALT [Catalytic activity/Vol]112 U/LHigh7-52The [facility] Physician GroupComment on above:Performed By: #### LIPID, MG, CMP, A1C WTH eA, CBC ####[place] [address] [place] [address] USAAnion gap [Moles/Vol]12.1 mmol/LNormal6.0-15.0The [facility] Physician GroupComment on above:Performed By: #### LIPID, MG, CMP, A1C WTH eA, CBC ####[place] [address] [place] [address] USAAST [Catalytic activity/Vol]22 U/IHdvanm16-11 The [facility] Physician GroupComment on above:Performed By: #### LIPID, MG, CMP, A1C WTH eA, CBC ####[place] [address] [place] [address] USABilirubin [Mass/Vol]1.6 mg/dLHigh0.3-1.0The [facility] Comment on above:Result Comment: Samples from patients who have taken Naproxen have shown spurious elevation in Total Bilirubin levels. A metabolite of Naproxen, O-desmethylnaproxen, has been shown to interfere with the Jayro-Henrik method for measuring Total Bilirubin.Performed By: #### LIPID, MG, CMP, A1C WTH eA, CBC ####[place] [address] [place] [address] USACalcium [Mass/Vol] 9.6 mg/dLNormal8.6-10.3The [facility] Physician GroupComment on above:Performed By: #### LIPID, MG, CMP, A1C WTH eA, CBC ####[place] [address] USAChloride [Moles/Vol]99 mmol/KQcrwsf97-117Jlv [facility] Physician GroupComment on above:Performed By: #### LIPID, MG, CMP, A1C WTH eA, CBC ####[place] [address] USACO2 [Moles/Vol]27.7 mmol/DCsiqiz45.0-31.0The [facility] Comment on above:Performed By: #### LIPID, MG, CMP, A1C WTH eA, CBC ####[place] [address] [place] Creatinine [Mass/Vol]0.80 mg/dLNormal0.70-1.30The [facility] Comment on above:Performed By: #### LIPID, MG, CMP, A1C WTH eA, CBC ####[place] [address] [place] Creatinine Clr Calc Tdhfpqto29.08NoSt. Luke's Hospital Physician GroupComment on above:Performed By: #### LIPID, MG, CMP, A1C WTH eA, CBC ####[place] [address] USAGFR/1.73 sq M.predicted MDRD (S/P/Bld) [Vol rate/Area]mL/min/{1.73_m2}NormalThe [facility] Comment on above:Performed By: #### LIPID, MG, CMP, A1C WTH eA, CBC ####[address] [address] USA Globulin (S) [Mass/Vol]2.9 g/dLNoSt. Luke's Hospital Physician GroupComment on above:Performed By: #### LIPID, MG, CMP, A1C WTH eA, CBC ####[place] [address] USAGlucose [Mass/Vol]153 mg/dL Qjjy27-251Jkd [facility] Physician GroupComment on above:Result Comment: Random Glucose Reference Range is dependent on time and content of last meal. Glucose of more than 200 mg/dL in a nonstressed, ambulatory subject supports the diagnosis of Diabetes Mellitus. ADA recommended reference rangePerformed By: #### LIPID, MG, CMP, A1C WTH eA, CBC ####[address] Potassium [Moles/Vol]3.8 mmol/LNormal3.5-5.1The [facility] Physician GroupComment on above:Performed By: #### LIPID, MG, CMP, A1C WTH eA, CBC ####[place] [address] USAProtein [Mass/Vol]6.8 g/dLNormal6.4-8.9The [facility] Physician GroupComment on above:Performed By: #### LIPID, MG, CMP, A1C WTH eA, CBC ####[place] [address] USASodium [Moles/Vol]135 mmol/ZZbd544-155Yom [facility] Physician [facility] CenterComment on above:Performed By: #### LIPID, MG, CMP, A1C WTH eA, CBC ####[place] [address] USAUrea nitrogen [Mass/Vol]13 mg/dLNormal7-25The [facility] Comment on above:Performed By: #### LIPID, MG, CMP, A1C WTH eA, CBC ####[address] Hemoglobin A1c/Hemoglobin.total in BloodOrdered By: Lydia Connelly on 08-12-2024 HbA1c (Bld) [Mass fraction]Hemoglobin A1c percentageHigh4.3-5.6FWayne HospitalComment on above:Increased risk for diabetes: 5.7 - 6.4diabetes: >6.4glycemic control for adults with diabetes: <7.0HbA1c (Bld) [Mass fraction]7.7 %High4.3-5.6FWayne HospitalComment on above:Increased risk for diabetes: 5.7 - 6.4diabetes: >6.4glycemic control for adults with diabetes: <7.0Result Comment: Increased risk for diabetes: 5.7 - 6.4 diabetes: >6.4 glycemic control for adults with diabetes: <7.0Performed By: #### LIPID, MG, CMP, A1C WTH eA, CBC ####[place] [id number] USALipid Panelon 35-78-5722QXC Cholesterol,Qmnseweqqp08 mg/dLNormal0-100[facility] Physician GroupComment on above:Result Comment: LDL ATP III CLASSIFICATION LDL less than 100 mg/dL Optimal LDL 100-129 mg/dL Near or above optimal LDL 130-159 mg/dL Borderline high LDL 160-189 mg/dL High LDL greater than 189 mg/dL Very highPerformed By: #### LIPID, MG, CMP, A1C WTH eA, CBC ####[place] [address] USATriglyceride w/Lgeqlx402 mg/dLHigh0-149The [facility] Physician GroupComment on above:Result Comment: TRIG ATP III CLASSIFICATION TRIG less than 150 mg/dL Normal TRIG 150-199 mg/dL Borderline high TRIG 200-500 mg/dL High TRIG greater than 500 mg/dL Very high Standard traceable to the Center for Disease Conrtrol and Prevention (CDC) test method.Performed By: #### LIPID, MG, CMP, A1C WTH eA, CBC ####[place] [address] USAVLDL YSOWGTHXRIN66 mg/dLNormalThe [facility] Physician GroupComment on above:Performed By: #### LIPID, MG, CMP, A1C WTH eA, CBC ####[place] [address] USAMagnesiumon 17-08-7328Dtjgvtwch [Mass/Vol]1.5 mg/dLLow1.9-2.7ThSaint Alphons[facility] Physician GroupComment on above:Performed By: #### LIPID, MG, CMP, A1C WTH eA, CBC ####[place] [address] USASerum or plasma total cholesterol/high density lipoprotein (HDL) cholesterol mass ratOrdered By: Lydia Connelly on 08-12-2024 Cholesterol.total/Cholesterol in HDL [Mass ratio]Serum or plasma total cholesterol/high density lipoprotein (HDL) cholesterol mass rat<5.0[facility] HospitalCholesterol.total/Cholesterol in HDL [Mass ratio]3.7 {ratio}Normal<5.0B[facility] HospitalComment on above:Result Comment: PERFORMED BY: [facility] [address] [place] [id number] PATHOLOGIST FIBER ANALYST OSCAR HAY M.D.Performed By: #### LIPID, MG, CMP, A1C WTH eA, CBC ####[facility] [place] [id number] [facility] Triglyceride [Mass/volume] in Serum or PlasmaOrdered By: Lydia Connelly on 57-69-5010Nliwzndeaiof [Mass/Vol]Triglyceride [Mass/volume] in Serum or Plasma High0-149[facility] HospitalComment on above:TRIG ATP III CLASSIFICATIONTRIG less than 150 mg/dL NormalTRIG 150-199 mg/dL Borderline highTRIG 200-500 mg/dL High TRIG greater than 500 mg/dL Very highStandard traceable to the Center for Disease Conrtrol and Prevention (CDC) test method. Triglyceride [Mass/Vol]179 mg/dLSummersville Memorial Hospital[address] Comment on above:TRIG ATP III CLASSIFICATIONTRIG less than 150 mg/dL NormalTRIG 150-199 mg/dL Borderline highTRIG 200-500 mg/dL High TRIG greater than 500 mg/dL Very highStandard traceable to the Center for Disease Conrtrol and Prevention (CDC) test method.Troponin I High Sensitivityon 50-70-6731Hsuctjgu I High Fgntpuluzda29Qmyqyk6-95Htz [facility] Physician GroupComment on above:Result Comment: The Troponin units of report have been changed to meet the Chest Pain Accreditation requirement, element EC5.M1l2. Troponin units are changed from pg/ml to ng/L. Also, the decimal is removed and results are in whole numbers. PERFORMED BY: [facility] [address] [place] [address] PATHOLOGIST FIBER ANALYST OSCAR HAY M.D.Performed By: #### HS TROP ####[facility] [address] [place] [address] USATroponin I.cardiac [Mass/volume] in Serum or Plasma by Detection limit <= 0.01 ng/Ordered By: Lydia Connelly on 83-32-5187Kbkuwanq I.cardiac DL <= 0.01 ng/mL [Mass/Vol]Troponin I.cardiac [Mass/volume] in Serum or Plasma by Detection limit <= 0.01 ng/0-20 [facility] HospitalComment on above:The Troponin units of report have been changed to meet the Chest Pain Accreditation requirement, element EC5.M1l2. Troponin units are changed from pg/ml to ng/L. Also, the decimal is removed and results are in whole numbers.Troponin I.cardiac [Mass/volume] in Serum or Plasma by Detection limit <= 0.01 ng/mLOrdered By: Lydia Connelly on 94-75-8031Lvpwbauc I.cardiac DL <= 0.01 ng/mL [Mass/Vol]17 ng/L0-20[facility] HospitalComment on above:The Troponin units of report have been changed to meet the Chest Pain Accreditation requirement, element EC5.M1l2. Troponin units are changed from pg/ml to ng/L. Also, the decimal is removed and results are in whole numbers.US venous duplex LE BIon 97-27-2319DN venous duplex LE [facility] [address] [place] [address] [place] [id number] Ultrasound Report Signed Patient: Esme Kaminski MR#: [id number] : 1960 Acct:[id number] Age/Sex: 63 / M ADM Date: 08/11/24 Loc: Room: 0U8471-0 Type: ADM INOo Attending Dr: Lydia Connelly [...] Hannah M.D. 08/12/2024 3:12 PM Dictation Location: [place] [address] Tech: Serena Carol Transcribed By: GWEN 08/12/241511 Dictated By: Matt Hannah MD 08/12/241511 Signed By: 08/12/24 151NoGenesis HospitalBNP ser/plasOrdered By: Winnie Farris on 14-17-8890Dnnqurxvmdd peptide B (Bld) [Mass/Vol]514.0 pg/mLHigh5-100 [facility] HospitalComment on above:Result Comment: PERFORMED BY: [facility] [address] [place] [id number] PATHOLOGIST FIBER ANALYST OSCAR HAY M.D.Performed By: #### CK, BNP, HS TROP, PT, CBC, BMP ####[place] [address] [place] [address] USABasic Metabolic Panelon 31-44-8156Ccwcz gap [Moles/Vol]11.8 mmol/LNormal6.0-15.0The [facility] Physician [facility] CenterComment on above:Performed By: #### CK, BNP, HS TROP, PT, CBC, BMP ####[facility] [address] [place] [address] USACalcium [Mass/Vol]9.1 mg/dLNormal8.6-10.3The [facility] Comment on above:Performed By: #### CK, BNP, HS TROP, PT, CBC, BMP ####[facility] [place] [address] USAChloride [Moles/Vol] 100 mmol/SBhqftm63-849Qls [facility] Physician [facility] CenterComment on above:Performed By: #### CK, BNP, HS TROP, PT, CBC, BMP ####[place] [address] USACO2 [Moles/Vol]26.2 mmol/ZMimrju48.0-31.0The [facility] Physician GroupComment on above:Performed By: #### CK, BNP, HS TROP, PT, CBC, BMP ####[place] [address] USACreatinine [Mass/Vol]0.74 mg/dLNormal0.70-1.30The [facility] Physician [facility] CenterComment on above:Performed By: #### CK, BNP, HS TROP, PT, CBC, BMP ####[place] [address] [place] Creatinine Clr Calc Umfgsbji824.04NormalThe [facility] Physician [facility] CenterComment on above:Result Comment: PERFORMED BY: [place] [address] PATHOLOGIST FIBER ANALYST OSCAR HAY M.D.Performed By: #### CK, BNP, HS TROP, PT, CBC, BMP ####[place] [address] [place] GFR/1.73 sq M.predicted MDRD (S/P/Bld) [Vol rate/Area]mL/min/{1.73_m2}NormalThe [facility] Physician [facility] CenterComment on above:Performed By: #### CK, BNP, HS TROP, PT, CBC, BMP ####[place] [address] USAGlucose [Mass/Vol]164 mg/mYYkup97-859Afx [facility] Physician [facility] Comment on above:Result Comment: Random Glucose Reference Range is dependent on time and content of last meal. Glucose of more than 200 mg/dL in a nonstressed, ambulatory subject supports the diagnosis of Diabetes Mellitus. ADA recommended reference rangePerformed By: #### CK, BNP, HS TROP, PT, CBC, BMP ####[address] [place] [address] [place] Potassium [Moles/Vol]4.0 mmol/LNormal3.5-5.1The [facility] Physician GroupComment on above:Result Comment: Hemolysis is present at a level that could interfere with the result. Contact lab if redraw is requiredPerformed By: #### CK, BNP, HS TROP, PT, CBC, BMP ####[place] [address] [address] Sodium [Moles/Vol]134 mmol/AFsx555-440Eiz [facility] Physician GroupComment on above:Performed By: #### CK, BNP, HS TROP, PT, CBC, BMP ####[place] [address] [address] StreetUrea nitrogen [Mass/Vol]12 mg/dLNormal7-25The [facility] Physician GroupComment on above:Performed By: #### CK, BNP, HS TROP, PT, CBC, BMP ####[address]Basophils Auto (Bld) [#/Vol]Ordered By: Winnie Farris on 84-28-5877Jixuefdoj (Bld) [#/Vol]Automated basophil count0.0-0.2FWayne HospitalBasophils/100 WBC Auto (Bld)Ordered By: Winnie Farris on 45-49-1641Zsasoknxi/100 WBC (Bld)Automated basophil %.[facility] HospitalCalcium [Mass/volume] in Serum or PlasmaOrdered By: Winnie Farris on 22-69-5478Typucve [Mass/Vol]Calcium [Mass/volume] in Serum or Plasma8.6-10.3 [facility] HospitalCarbon dioxide, total [Moles/volume] in Serum or PlasmaOrdered By: Winnie Farris on 64-89-6634BF0 [Moles/Vol]Carbon dioxide, total [Moles/volume] in Serum or Xtpbsg17.0-31.0[facility] HospitalChloride [Moles/volume] in Serum or PlasmaOrdered By: Winnie Farris on 28-58-6305Zsyxkcow [Moles/Vol]Chloride [Moles/volume] in Serum or Fxiefr23-992 [facility] HospitalComplete Blood Count Auto Diffon 08-11-2024 Basophils (Bld) [#/Vol]0.0 10*3/uLNormal0.0-0.2[facility] Comment on above:Result Comment: PERFORMED BY: [address] [place] [address] PATHOLOGIST FIBER ANALYST OSCAR HAY M.D.Performed By: #### CK, BNP, HS TROP, PT, CBC, BMP ####[place] [address] [place] Basophils/100 WBC (Bld)0.1 %Normal.The [facility] Physician GroupComment on above:Performed By: #### CK, BNP, HS TROP, PT, CBC, BMP ####[place] [address] USAEosinophils (Bld) [#/Vol]0.0 10*3/uLNormal0.0-0.45The [facility]ician [facility] CenterComment on above:Performed By: #### CK, BNP, HS TROP, PT, CBC, BMP ####[place] [address] USAEosinophils/100 WBC (Bld)0.3 %Normal.The [facility] Physician GroupComment on above:Performed By: #### CK, BNP, HS TROP, PT, CBC, BMP ####[place] [address] USAErythrocyte distribution width (RBC) [Ratio]13.8 %Ktuhji13.0-14.8The [facility] Physician GroupComment on above:Performed By: #### CK, BNP, HS TROP, PT, CBC, BMP ####[place] [address] USAHematocrit (Bld) [Volume fraction]45.5 %Hmqhrr05.8-50.0The [facility] Physician GroupComment on above:Performed By: #### CK, BNP, HS TROP, PT, CBC, BMP ####[place] [address] [place] Hemoglobin (Bld) [Mass/Vol]15.5 g/gEZzqvth04.0-17.0[facility] Comment on above:Performed By: #### CK, BNP, HS TROP, PT, CBC, BMP ####[place] [address] USALymphocytes (Bld) [#/Vol]0.9 10*3/uLLow1.00-4.8The [facility] Physician GroupComment on above: Performed By: #### CK, BNP, HS TROP, PT, CBC, BMP ####[place] [address] USALymphocytes/100 WBC (Bld)6.3 %Normal. The [facility] Physician GroupComment on above:Performed By: #### CK, BNP, HS TROP, PT, CBC, BMP ####[place] [id number] [facility] (RBC) [Entitic mass]35.4 wpWwgx82.5-35.2The [facility] Physician GroupComment on above:Performed By: #### CK, BNP, HS TROP, PT, CBC, BMP ####[address]MCV (RBC) [Entitic vol]104.0 jFWlqp64.5-101The [facility] Physician GroupComment on above:Performed By: #### CK, BNP, HS TROP, PT, CBC, BMP ####[place] [address] USAMean Corpuscular HGB Conc34.1 g/dSDfwzee68.5-35.6The [facility] Physician GroupComment on above:Performed By: #### CK, BNP, HS TROP, PT, CBC, BMP ####[place] [address] USAMonocytes (Bld) [#/Vol]0.8 10*3/uLNormal0.0-0.8The [facility] Physician GroupComment on above:Performed By: #### CK, BNP, HS TROP, PT, CBC, BMP ####[place] [address] USAMonocytes/100 WBC (Bld)19.81 %Normal0.00-20.00The [facility] Physician GroupComment on above:Performed By: #### CK, BNP, HS TROP, PT, CBC, BMP ####[place] [address] [place] Monocytes/100 WBC (Bld)5.5 %Normal.The [facility] Physician GroupComment on above:Performed By: #### CK, BNP, HS TROP, PT, CBC, BMP ####[place] [address] USANeutrophils (Bld) [#/Vol]12.0 10*3/uLHigh1.8-7.7The [facility] Physician GroupComment on above:Performed By: #### CK, BNP, HS TROP, PT, CBC, BMP ####[place] [address] USANeutrophils/100 WBC (Bld)87.8 %Normal.The [facility] Physician GroupComment on above:Performed By: #### CK, BNP, HS TROP, PT, CBC, BMP ####[place] [address] [place] NRBC%0.1 /100{WBC}Normal0-0.5The [facility] Physician GroupComment on above: Performed By: #### CK, BNP, HS TROP, PT, CBC, BMP ####[place] [address] USAPlatelet mean volume (Bld) [Entitic vol]8.9 fLNormal6.6-10.1The [facility] Physician GroupComment on above:Performed By: #### CK, BNP, HS TROP, PT, CBC, BMP ####[place] [address] USAPlatelets (Bld) [#/Vol]146 10*3/fBAml309-842 The [facility] Physician GroupComment on above:Performed By: #### CK, BNP, HS TROP, PT, CBC, BMP ####[place] [address] [place] [address] USARBC (Bld) [#/Vol]4.38 10*6/uLNormal3.90-5.60The [facility] Physician GroupComment on above:Performed By: #### CK, BNP, HS TROP, PT, CBC, BMP ####[place] [address] USAWBC (Bld) [#/Vol]13.6 10*3/uLHigh4.1-10.5The [facility] Physician GroupComment on above:Performed By: #### CK, BNP, HS TROP, PT, CBC, BMP ####[place] [address] [place] [address] USACreatine kinase [Enzymatic activity/volume] in Serum or PlasmaOrdered By: Winnie Farris on 99-10-2071RK [Catalytic activity/Vol]Creatine kinase [Enzymatic activity/volume] in Serum or VfwmnwClo78-577Xgrkmxsfi46 Martin StreetCK [Catalytic activity/Vol]15 U/QDks09-160Pvsgahfqr46 Martin StreetComment on above:Performed By: #### CK, BNP, HS TROP, PT, CBC, BMP ####[place] [address] USACreatinine [Mass/volume] in Serum or PlasmaOrdered By: Winnie Farris on 31-79-2174Geymkqwjtg [Mass/Vol]Creatinine [Mass/volume] in Serum or Plasma0.70-1.30[facility] HospitalECG 12 lead ECGon 06-17-2965XOB 12 lead ECGCHILLICOTHE HOSPITAL [facility] [place] [address] [place] [address] Electrocardiograph Report Signed Patient: Esme Kaminski MR#: [id number] : 1960 Acct:[id number] Age/Sex: 63 / M ADM Date: 08/11/24 Loc: Room: [address] [place] [address] Type: ADM INOo Attending Dr: Lydia Connelly [...] (Unconfirmed) QT has lengthened Confirmed by WINNIE FARRIS DO ([id number]) on 08/11/2024 7:48:56 PM Referred By: Electronically Signed By: WINNIE FARRIS DO Transcribed By: MUS Signed By Winnie Farris DO [address] [place] [address] Physician GroupECG 12 lead ECGCHILLICOTHE HOSPITAL [place] [address] [place] [address] Electrocardiograph Report Signed Patient: Esme Kaminski MR#: [id number] : 1960 Acct:[id number] Age/Sex: 63 / M ADM Date: 08/11/24 Loc: Room: [address] [place] [address] Type: ADM INOo Attending Dr: Lydia Connelly MD Ordering Provider: Winnie Farris DO Date of Service: 08/11/2408/31/1005 ECG/ECG 12 [...] has replaced Sinus rhythm Confirmed by WINNIE FARRIS DO ([id number]) on 08/11/2024 7:47:26 PM Referred By: Electronically Signed By: WINNIE FARRIS DO Transcribed By: MUS Signed By Winnie Farris DO [address] [place] [address] Physician GroupECH echo transthoracicon 29-80-1285YQD echo transthoracicCHILLICOTHE HOSPITAL [place] [address] [place] [address] Echocardiogram Signed Patient: Esme Kaminski MR#: [id number] : 1960 Acct:[id number] Age/Sex: 63 / M ADM Date: 08/11/24 Loc: Room: [address] [place] [address] Type: ADM INOo Attending Dr: Lydia Connelly MD Ordering Provider: Lydia Connelly MD Date of Service: 08/11/2408/31/1330 ECH/ECH echo transthoracic: Chest Pain Copies to: MD Lydia Panda MD Height: 61 in Weight: 233 lb Performed By: Narinder Lezama RDCS, T BSA: 2.0 m2 BP: 137/98 mmHg HR: 98 Reason For Study: Chest Pain History: PCI, CABG, AFib, Watchman - 07/01, HTN, HLD, FER, FL, MV disorder, CAD Interpretation Summary The LV [...] 1546 Signed By: Will Koch MD 08/11/24 1754[facility] Physician GroupEosinophils Auto (Bld) [#/Vol]Ordered By: Winnie Farris on 75-21-4823Dbdbxrevrxp (Bld) [#/Vol]Automated eosinophil count0.0-0.45[facility] HospitalEosinophils/100 WBC Auto (Bld)Ordered By: Winnie Farris on 62-17-0486Ibvsmqmxbfn/100 WBC (Bld)Automated eosinophil %.[facility] HospitalErythrocyte distribution width Auto (RBC) [Ratio]Ordered By: Winnie Farris on 51-34-9693Ptrsjlobenk distribution width (RBC) [Ratio] Erythrocyte distribution width [Ratio] by Automated count12.0-14.8[facility] HospitalGlucose [Mass/volume] in Serum or PlasmaOrdered By: Winnie Farris on 65-24-5886Hngryer [Mass/Vol]Glucose [Mass/volume] in Serum or AynmrrCsbh93-819DxtgryuisBrecksville Va / Crille HospitalComment on above:ADA recommended reference rangeRandom Glucose Reference Range is dependent on time and content of last meal. Glucose of more than 200 mg/dL in a nonstressed, ambulatory subject supports the diagnosisof Diabetes Mellitus.Hematocrit Auto (Bld) [Volume fraction]Ordered By: Winnie Farris on 76-02-1573Smaopezbgw (Bld) [Volume fraction]Hematocrit [Volume Fraction] of Blood by Automated count 38.8-50.0[facility] HospitalHemoglobin [Mass/volume] in Blood Ordered By: Winnie Farris on 72-28-4631Mzbawiufkp (Bld) [Mass/Vol]Hemoglobin [Mass/volume] in Blood13.0-17.0[facility] HospitalINR in Platelet poor plasma by Coagulation assayOrdered By: Winnie Farris on 19-30-6326SFK Coag (PPP) [Relative time]INR in Platelet poor plasma by Coagulation assayBrecksville Va / Crille HospitalComment on above:INR Therapeutic Range A) Pre- [...] 3 - 4.5INR Coag (PPP) [Relative time]1.1 {INR}NormalBrecksville Va / Crille HospitalComment on above:INR Therapeutic Range A) Pre- [...] heart valves: 3 - 4.5 PERFORMED BY: [facility] [address] [place] [address] PATHOLOGIST FIBER ANALYST OSCAR HAY M.D.Performed By: #### CK, BNP, HS TROP, PT, CBC, BMP ####[facility] [address] [place] [address] [facility] Leukocytes [#/volume] corrected for nucleated erythrocytes in Blood by Automated counOrdered By: Winnie Farris on 45-46-3369HHE corrected for nucl RBC Auto (Bld) [#/Vol]Leukocytes [#/volume] corrected for nucleated erythrocytes in Blood by Automated counHigh4.1-10.5FWayne HospitalLymphocytes Auto (Bld) [#/Vol]Ordered By: Winnie Farris on 73-52-1535Lfuwksoinfp (Bld) [#/Vol] Lymphocytes [#/volume] in Blood by Automated countLow1.00-4.8[facility] HospitalLymphocytes/100 WBC Auto (Bld)Ordered By: Winnie Farris on 78-39-7847Mndiknruytk/100 WBC (Bld)Lymphocytes/100 leukocytes in Blood by Automated count.[facility] HospitalH Auto (RBC) [Entitic mass] Ordered By: Winnie Farris on 34-98-8660PCS (RBC) [Entitic mass]MCH [Entitic mass] by Automated wdijzDrdj31.5-35.2FCleveland [facility] South Pointe HospitalHC Auto (RBC) [Mass/Vol]Ordered By: Winnie Farris on 94-39-8311LGMU (RBC) [Mass/Vol]MCHC [Mass/volume] by Automated count32.5-35.6FCleveland Clinic South Pointe HospitalV Auto (RBC) [Entitic vol]Ordered By: Winnie Farris on 61-06-3643RUB (RBC) [Entitic vol]MCV [Entitic volume] by Automated tuscmHfgf01.5-101[facility] HospitalMonocyte distribution width [Entitic volume] in Blood by Automated Ordered By: Winnie Farris on 82-63-3720Mkbulrff distribution width Auto (Bld) [Entitic vol]Monocyte distribution width [Entitic volume] in Blood by Automated 0.00-20.00[facility] HospitalMonocyte distribution width Auto (Bld) [Entitic vol]19.81 %0.00-20.00[facility] HospitalMonocytes Auto (Bld) [#/Vol]Ordered By: Winnie Farris on 23-48-4971Cntfvrbrz (Bld) [#/Vol] Automated blood monocyte count0.0-0.8[facility] Monocytes/100 WBC Auto (Bld)Ordered By: Winnie Farris on 42-95-3628Jamabsgai/100 WBC (Bld)Automated monocyte %.[facility] HospitalNatriuretic peptide B [Mass/Vol]Ordered By: Winnie Farris on 61-01-5881Snfaducajxx peptide B (Bld) [Mass/Vol]BNP ser/plasHigh5-100[facility] Neutrophils Auto (Bld) [#/Vol]Ordered By: Winnie Farris on 54-58-5604Erhdlnqakeh (Bld) [#/Vol]Neutrophils [#/volume] in Blood by Automated countHigh1.8-7.7 [facility] HospitalNeutrophils/100 WBC Auto (Bld)Ordered By: Winnie Farris on 56-85-4914Wgbyednidns/100 WBC (Bld)Automated neutrophil %. [facility] HospitalNo Panel InformationOrdered By: Winnie Farris on 83-75-1043Dndyaexpr GFR (CKD-EPI)> 60.0 mL/MinBrecksville Va / Crille Hospital Pharmacy Creatinine Clearance (Ffsv599.04[facility] Nucleated erythrocytes [Presence] in Blood by Automated countOrdered By: Winnie Farris on 49-60-0516Hexbxpbah RBC Auto Ql (Bld)Nucleated erythrocytes [Presence] in Blood by Automated count0-0.5FWayne HospitalPlatelet mean volume Auto (Bld) [Entitic vol]Ordered By: Winnie Farris on 76-27-0193Fveemotn mean volume (Bld) [Entitic vol]Platelet mean volume [Entitic volume] in Blood by Automated count6.6-10.1FWayne HospitalPlatelets Auto (Bld) [#/Vol]Ordered By: Winnie Farris on 96-28-9070Puzycgala (Bld) [#/Vol]Platelets [#/volume] in Blood by Automated aowciFkr661-512JwiyprdetBrecksville Va / Crille HospitalPotassium [Moles/volume] in Serum or PlasmaOrdered By: Winnie Farris on 72-99-0298Wojuekoxw [Moles/Vol]Potassium [Moles/volume] in Serum or Plasma 3.5-5.1FWayne HospitalComment on above:Hemolysis is present at a level that could interfere with the result.Contact lab if redraw is required Prothrombin time (PT)Ordered By: Winnie Farris on 99-02-3120EO Coag (PPP) [Time] Prothrombin time (PT)9.0-12.9[facility] HospitalComment on above:A hematocrit value greater than 55% may lead to inaccurate results in coagulation testing. Patientshaving hematocrit values >55% require a special collection tube for coagulation studies. Please contact the laboratory at [phone] for redraw instructions.PT Coag (PPP) [Time]12.5 sNormal9.0-12.9[facility] HospitalComment on above:A hematocrit value greater than 55% may lead to inaccurate results in coagulation testing. Patientshaving hematocrit values >55% require a special collection tube for coagulation studies. Please contact the laboratory at [phone] for redraw instructions.Result Comment: A hematocrit value greater than 55% may lead to inaccurate results in coagulation testing. Patients having hematocrit values >55% require a special collection tube for coagulation studies. Please contact the laboratory at [phone] for redraw instructions.Performed By: #### CK, BNP, HS TROP, PT, CBC, BMP ####[facility] [address] [place] [address] USARBC Auto (Bld) [#/Vol]Ordered By: Winnie Farris on 80-52-3492PIV (Bld) [#/Vol]Erythrocytes [#/volume] in Blood by Automated count3.90-5.60[facility] Serum or plasma anion gap determinationOrdered By: Winnie Farris on 08-11-2024 Anion gap [Moles/Vol]Serum or plasma anion gap determination6.0-15.0[facility] Miamisburgodium [Moles/volume] in Serum or PlasmaOrdered By: Winnie Farris on 95-87-9824Wegxhl [Moles/Vol]Sodium [Moles/volume] in Serum or MccmsmVri159-319CdtijqziaBrecksville Va / Crille HospitalThyrotropin [Units/volume] in Serum or PlasmaOrdered By: Lydia Connelly on 07-65-5555TAE QnThyrotropin [Units/volume] in Serum or Plasma0.45-5.33[facility] Crille HospitalTS Qn0.50 m[IU]/LNormal0.45-5.33[facility] Crille HospitalComment on above: Result Comment: PERFORMED BY: [place] [address] PATHOLOGIST FIBER ANALYST OSCAR HAY M.D.Performed By: #### TSH3 ####[address] [address] USATroponin I High Sensitivityon 43-52-7207Opfjvxwr I High Zqhmuluqkbo33Abqtrn6-78Xjk [facility] Comment on above:Result Comment: The Troponin units of report have been changed to meet the Chest Pain Accreditation requirement, element EC5.M1l2. Troponin units are changed from pg/ml to ng/L. Also, the decimal is removed and results are in whole numbers. PERFORMED BY: [facility] [address] [place] [id number] PATHOLOGIST FIBER ANALYST OSCAR HAY M.D.Performed By: #### HS TROP ####[address] [address] USATroponin I High Vrxyeemtwwu21 Normal0-20The [facility] Physician GroupComment on above:Result Comment: The Troponin units of report have been changed to meet the Chest Pain Accreditation requirement, element EC5.M1l2. Troponin units are changed from pg/ml to ng/L. Also, the decimal is removed and results are in whole numbers. PERFORMED BY: [address] [address] PATHOLOGIST FIBER ANALYST OSCAR HAY M.D.Performed By: #### HS TROP ####[place] [address] [place] [address] [facility] CARE CORPORATIONTroponin I High Ooyfehrakys12 Normal0-20The [facility] Physician GroupComment on above:Result Comment: The Troponin units of report have been changed to meet the Chest Pain Accreditation requirement, element EC5.M1l2. Troponin units are changed from pg/ml to ng/L. Also, the decimal is removed and results are in whole numbers. PERFORMED BY: [address] [address] PATHOLOGIST FIBER ANALYST OSCAR HAY M.D.Performed By: #### CK, BNP, HS TROP, PT, CBC, BMP ####[address] [address] [place] Troponin I.cardiac [Mass/volume] in Serum or Plasma by Detection limit <= 0.01 ng/Ordered By: Lydia Connelly on 77-59-7315Vmixckpx I.cardiac DL <= 0.01 ng/mL [Mass/Vol]Troponin I.cardiac [Mass/volume] in Serum or Plasma by Detection limit <= 0.01 ng/0-20[facility] HospitalComment on above:The Troponin units of report have been changed to meet the Chest Pain Accreditation requirement, element EC5.M1l2. Troponin units are changed from pg/ml to ng/L. Also, the decimal is removed and results are in whole numbers.Urea nitrogen [Mass/volume] in Serum or PlasmaOrdered By: Winnie Farris on 73-82-7959Hpvr nitrogen [Mass/Vol]Urea nitrogen [Mass/volume] in Serum or Plasma10-31[facility] Crille HospitalWBC Auto (Bld) [#/Vol]Ordered By: Winnie Farris on 68-64-5550HYU (Bld) [#/Vol]Leukocytes [#/volume] in Blood by Automated countHigh 4.1-10.5FWayne HospitalX-ray reportOrdered By: Alex Castro on 09-07-7539Ndpix reportFIRTheodore Ville [id number] XRay Report Signed Patient: Esme Kaminski MR#: [id number] : 1960 Acct:[id number] Age/Sex: 63 / M ADM Date: 5 Loc: ER Room: Type: [facility] ER Attending Dr: Copies to: Winnie Farris DO~ Ordering Provider: Winnie Farris DO Date of Service: 08/11/24 XR/XR chest 2V*: Chest Pain Chest 2 views CLINICAL HISTORY: Chest pain shortness of breath A. fib for 3 days COMPARISON: Chest 08/30/2023 FINDINGS: Post CABG changes. No lung consolidation pneumothorax pleural effusion or free air. Cardiomegaly isunchanged. XR/XR chest 2V* IMPRESSION: NO ACUTE CARDIOPULMONARY ABNORMALITY. Impression dictated by: Alex Castro Jr., D.OBarbara 08/11/2024 11:24 AM Dictation Location: [place] [address] Transcribed By: [facility] 08/11/24 1124 Dictated By: Alex [place] Jr, DO 08/11/24 1123 Signed By: 08/11/24 1124 [facility] HospitalXR chest 2V*on 64-24-3994QT chest 2V*[facility] Main [place] [id number] XRay Report Signed Patient: Esme Kaminski MR#: [id number] : 1960 Acct:[id number] Age/Sex: 63 / M ADM Date: 08/11/24 Loc: ER Room: Type: [facility] ER Attending Dr: Copies to: Winnie Farris DO Ordering Provider: Winnie Farris DO Date of Service: 08/11/24 XR/XR chest 2V*: Chest Pain Chest 2 views CLINICAL HISTORY: Chest pain shortness of breath A. fib for 3 days COMPARISON: Chest 08/30/2023 FINDINGS: Post CABG changes. No lung consolidation pneumothorax pleural effusion or free air. Cardiomegaly is unchanged. XR/XR chest 2V* IMPRESSION: NO ACUTE CARDIOPULMONARY ABNORMALITY. Impression dictated by: Alex Castro Jr., DSushant 08/11/2024 11:24 AM Dictation Location: RADIO-PC-23 Transcribed By: GWEN 08/11/24 1124 Dictated By: Alex Castro Jr, DO 08/11/24 1123 Signed By: 08/11/24 [facility]ician GroupX-ray reportOrdered By: Gisell Camilo on 83-60-2494Hlbzn reportCHILLICOTHE HOSPITAL [facility] [address] [place] [address] XRay Report Signed Patient: Esme Kaminski MR#: [id number] : 1960 Acct:[id number] Age/Sex: 63 / M ADM Date: Loc: [facility] Room: Type: [facility] Attending Dr: Sarai Mendez II, MD Copies [...] Gisell Camilo MD 08/06/241658 Signed By: 08/06/241699 [facility] Work Phone: XR hip LT min 2V(w/wo pelvis)*on 39-75-1890GP hip LT min 2V(w/wo pelvis)*[facility] [address] [place] [address] XRay Report Signed Patient: Esme Kaminski MR#: [id number] : 1960 Acct:[id number] Age/Sex: 63 / M ADM Date: 08/06/24 Loc: [facility] Room: Type: [facility] Attending Dr: Sarai Mendez II, MD Copies [...] By: Gisell Camilo MD 08/06/241658 Signed By: 08/06/241699[facility] Physician GroupX-ray reportOrdered By: Ap Paul on 95-72-5570Epvig reportFIRZANESVILLE CITY HOSPITAL [facility] [address] [place] [address] XRay Report Signed Patient: Esme Kaminski MR#: [id number] : 1960 Acct:[id number] Age/Sex: 63 / M ADM Date: Loc: [facility]: Chio Nichole MD Copies to: Chio Nichole MD~ Ordering Provider: Chio Nichole MD Date of Service: 08/04/24 XR/XR hand LT min 3V*: M79.642 - Pain in left hand LEFT HAND - 4 views COMPARISON: None REASON FOR EXAM: Injury, pain base of fifth metacarpal FINDINGS: 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 Uuep-bu-nnuuopzo degenerative changes elsewhere. No fractures or dislocation.. Mild intercarpal degenerative changes. XR/XR hand LT min 3V* IMPRESSION: NO ACUTE BONY INJURY. Impression dictated by: Ap Paul M.D. 08/04/2024 7:49 PM Dictation Location: [place] [address] Transcribed By: [facility] 08/04/241948 Dictated By: Ap Paul MD 08/04/241946 Signed By: 08/04/241948 [facility] Work Phone: XR hand LT min 3V*on 35-33-3592SH hand LT min 3V* [facility] [place] [address] XRay Report Signed Patient: Esme Kaminski MR#: [id number] : 1960 Acct:[id number] Age/Sex: 63 / M ADM Date: 08/04/24 Loc: [facility] Room: Type: [facility] CLI Attending Dr: Chio Nichole MD [...] metacarpal joint and scaphoid multi angular joint. Jhzo-gm-myvohgol degenerative changes elsewhere. No fractures or dislocation.. Mild intercarpal degenerative changes. XR/XR hand LT min 3V* IMPRESSION: NO ACUTE BONY INJURY. Impression dictated by: Ap Paul M.D. 08/04/2024 7:49 PM Dictation Location: RADIO-PC-29 Transcribed By: [facility] 08/04/241948 Dictated By: Ap Paul MD 08/04/241946 Signed By: 08/04/241948[facility] Physician GroupX-ray reportOrdered By: Gisell Camilo on 13-99-3065Czxlx reportCHILLICOTHE [place] [address] XRay Report Signed Patient: Esme Kaminski MR#: [id number] : 1960 Acct:[id number] Age/Sex: 63 / M ADM Date: 5 Loc: ER Room: Type: [facility] ER Attending Dr: Copies to: Cosmo [...] Dictation Location: RADIO-PC-02 Transcribed By: GWEN 08/01/24 115 Dictated By: Gisell Camilo MD 08/01/24 115 Signed By: 08/01/24 115 [facility] Work Phone: XR hip LT min 2V(w/wo pelvis)*on 29-14-9446GE hip LT min 2V(w/wo pelvis)*[facility] [place] [address] XRay Report Signed Patient: Esme Kaminski MR#: [id number] : 1960 Acct:[id number] Age/Sex: 63 / M ADM Date: 08/01/24 Loc: ER Room: Type: [facility] ER Attending Dr: Copies to: Cosmo [...] Dictation Location: RADIO-PC-02 Transcribed By: GWEN 08/01/24 115 Dictated By: Gisell Camilo MD 08/01/24 115 Signed By: 08/01/24 [facility] Physician GroupCNPNon [id number] (JESSICAN) ESME KAMINSKI ([id number]) 1960 M Date Time Provider Department 07/07/24 HELADIO PINEDA During your visit today, we recorded the following information about you: Heladio Pineda MD 08/18/2024 7:35 PM Addendum Please Call patient if MyChart note not read to review results/released to My Chart if tests completed at [facility]: Mildly high wbc, glucose, and one [...] Signed Spoke to pt aware of recommendations. aKt Carcamo 08/20/2024 9:39 AM Signed Called patient, [...] PANEL [SQCMP] Or (more content not included)...Normal [facility]25(OH)D3 [facility] [id number] D3 [Mass/Vol]19.2 ng/mLLow31.0-80.0Flower HospitalComment on above:Order Comment: Specimen Type: BLOOD SPECIMEN Ordering Facility: [facility] Address: [address] [place] [address] Comment: Classification of 25 [place] Vitamin D status: Deficiency/Insufficiency: < or = 30 ng/ml. Sufficiency/Optimal Levels: 31-80 ng/mL Toxicity: > 100 ng/mL. Test performed by chemiluminescent immunoassay.Performed By: #### 1989-3 #### [facility] CLIA [id number] [address] [place], [place] [address]CB panel Auto (Bld)on 79-04-1242Ldodcfciohc distribution width (RBC) [Ratio]13.3 %11.5 - 15.0 % [facility]uder HospitalHematocrit (Bld) [Volume fraction]49.9 %39.0 - 51.0 %[facility]uder HospitalHemoglobin (Bld) [Mass/Vol]16.9 g/dL13.0 - 17.0 g/dLMagruder Hospital Interpretation and review of laboratory resultsAbnormalCAshtabula County Medical CenterH (RBC) [Entitic mass]35.2 bzNykd58.0 - 34.0 pgClevelAllina Health Faribault Medical CenterHC (RBC) [Mass/Vol] 33.9 g/dL30.5 - 36.0 g/dLMagruder HospitalMCV (RBC) [Entitic vol]104 tNOjny73.0 - 100.0 fLCleveland ClinicNucleated RBC (Bld) [#/Vol]NINFCleveland ClinicPlatelet mean volume (Bld) [Entitic vol]10.6 fL9.0 - 12.7 fLCleveland ClinicPlatelets (Bld) [#/Vol]239 10*3/uLMagruder HospitalRBC (Bld) [#/Vol]4.8 10*6/uL4.20 - 6.00 m/Protestant HospitalWBC (Bld) [#/Vol]12.61 10*3/uLHighRegency Hospital CompanyErythrocyte distribution width (RBC) [Ratio]13.3 %Rckcmo83.5-15.0Flower HospitalComment on above:Order Comment: Specimen Type: BLOOD SPECIMEN Ordering Facility: [facility] Address: [address] [place], [place] [address]Performed By: #### 56868-9, 4537-7 #### [facility] CLIA [id number] [address] [place], [place] [address]Hematocrit (Bld) [Volume fraction]49.9 %Lllgvm29.0-51.0[facility] on above:Order Comment: Specimen Type: BLOOD SPECIMEN Ordering Facility: [facility] Address: [address] [place], [place] [address]Performed By: #### 11673-6, 4537-7 #### [facility] CLIA [id number] [address] [place], [place] [address]Hemoglobin (Bld) [Mass/Vol] 16.9 g/eCFljzef55.0-17.0[facility] on above:Order Comment: Specimen Type: BLOOD SPECIMEN Ordering Facility: [facility] Address: [address] [place], [place] [address]Performed By: #### 94238-9, 4537-7 #### [facility] CLIA [id number] [address] [place] [address] (RBC) [Entitic mass]35.2 gzRjxn44.0-34.0[facility] on above:Order Comment: Specimen Type: BLOOD SPECIMEN Ordering Facility: [facility] Address: [address] [place], [place] [address]Performed By: #### 82526-2, 4537-7 #### [facility] CLIA [id number] [address] [place], [place] [address]MCHC (RBC) [Mass/Vol]33.9 g/wGZppflv79.5-36.0[facility] on above:Order Comment: Specimen Type: BLOOD SPECIMEN Ordering Facility: [facility] Address: [address] [place], [place] [address]Performed By: #### 32460-4, 4537-7 #### [facility] CLIA [id number] [address] [place] [address] (RBC) [Entitic vol]104.0 eWVpol08.0-100.0[facility] on above:Order Comment: Specimen Type: BLOOD SPECIMEN Ordering Facility: [facility] Address: [address] [place], [place] [address]Performed By: #### 62501-2, 4537-7 #### [facility] CLIA [id number] [address] [place] [address] [place] OF AMERICANucleated RBC (Bld) [#/Vol] 10*3/uLNormal<0.01[facility] on above:Order Comment: Specimen Type: BLOOD SPECIMEN Ordering Facility: [facility] Address: [address] [place], [place] [address]Performed By: #### 08354-2, 4537-7 #### [facility] CLIA [id number] [address] [address] [place] OF AMERICAPlatelet mean volume (Bld) [Entitic vol]10.6 fLNormal9.0-12.7CWayne Hospital on above: Order Comment: Specimen Type: BLOOD SPECIMEN Ordering Facility: [facility] Address: [address] [place], [place] [address]Performed By: #### 71520-8, 4537-7 #### [facility] CLIA [id number] [address] [place] [address] [place] AMERICAPlatelets (Bld) [#/Vol]239 10*3/gEGkssdl597-625MdwckdjihBethesda North Hospital on above:Order Comment: Specimen Type: BLOOD SPECIMEN Ordering Facility: [facility] Address: [address] [place], [place] [address]Performed By: #### 41566-7, 4537-7 #### [facility] CLIA [id number] [address] [place] [address] [place] OF AMERICARBC (Bld) [#/Vol]4.80 10*6/uLNormal4.20-6.00[facility] on above:Order Comment: Specimen Type: BLOOD SPECIMEN Ordering Facility: [facility] Address: [address] [place], [place] [address]Performed By: #### 62203-7, 4537-7 #### [facility] CLIA [id number] [address] [place] [address] [place] AMERICAWBC (Bld) [#/Vol]12.61 10*3/uLHigh3.70-11.00[facility] on above:Order Comment: Specimen Type: BLOOD SPECIMEN Ordering Facility: [facility] Address: [address] [place], [place] [address]Performed By: #### 62164-9, 4537-7 #### [facility] CLIA [id number] [address] [place], [place] [address]CNOVon 36-79-8941JXSYQmjtrv Visit (RADHA) ESME KAMINSKI ([id number]) 1960 M Date Time Provider Department 06/30/24 [...] touching your toes, sit-ups, using row machine machine long goods helper pain recommendations per primary care provider/pain clinic [...] of arms and leg (more content not included)...NormalFlower HospitalCRP SerPl-mCnc on 47-47-8831SPS [Mass/Vol]0.6 mg/dLNormal<0.9ClevelMission Hospital McDowellCompromedica charles [facility] on above:Order Comment: Specimen Type: BLOOD SPECIMEN Ordering Facility: [facility] Address: [address] [place], [place] [address]Performed By: #### 1987-08, 3083-04, #### [facility] CLIA [id number] [address] [address] [place] OF AMERICAComprehensive metabolic 2000 panelon 27-78-5644Eoluhrm [Mass/Vol]4.1 g/dLNormal3.9-4.9CWayne Hospital on above:Order Comment: Specimen Type: BLOOD SPECIMEN Ordering Facility: [facility] Address: [address] [place], [place] [address]Performed By: #### 1987-08, 3083-04, #### [facility] CLIA [id number] [address] [place] [address] [place] AMERICAALP [Catalytic activity/Vol] 67 U/NAfneqo30-693OqrjsgrijBethesda North Hospital on above:Order Comment: Specimen Type: BLOOD SPECIMEN Ordering Facility: [facility] Address: [address] [place], [place] [address]Performed By: #### 1987-08, 3083-04, #### [facility] CLIA [id number] [address] [place], [place] [address] [place] AMERICAALT [Catalytic activity/Vol] 73 U/MSwua05-41EaxyskphtBethesda North Hospital on above:Order Comment: Specimen Type: BLOOD SPECIMEN Ordering Facility: [facility] Address: [address] [place], [place] [address]Performed By: #### 1987-08, 3083-04, #### [facility] CLIA [id number] [address] [place], [place] [address] [place] OF AMERICAAnion gap [Moles/Vol]14 mmol/LNormal8-15[facility] on above:Order Comment: Specimen Type: BLOOD SPECIMEN Ordering Facility: [facility] Address: [address] [place], [place] [address]Performed By: #### 1987-08, 3083-04, #### [facility] CLIA [id number] [address] [place], [place] [address] [place] AMERICAAST [Catalytic activity/Vol] 35 U/PHtfugk43-76CsgcuobwyBethesda North Hospital on above:Order Comment: Specimen Type: BLOOD SPECIMEN Ordering Facility: [facility] Address: [address] [place] [address]Kxhpyqvqt By: #### 1987-08, 3083-04, #### [facility] CLIA [id number] [address] [place], [place] [address] [place] AMERICABilirubin [Mass/Vol]0.7 mg/dLNormal0.2-1.3CWayne Hospital on above:Order Comment: Specimen Type: BLOOD SPECIMEN Ordering Facility: [facility] Address: [address] [place] [address] 811[address]Sxipdzmnx By: #### 1987-08, 3083-04, #### [facility] CLIA [id number] [address] [place] [address] [place] AMERICACalcium [Mass/Vol]9.7 mg/dL Normal8.5-10.2CWayne Hospital on above:Order Comment: Specimen Type: BLOOD SPECIMEN Ordering Facility: [facility] Address: [address] [place], [place] [address]Performed By: #### 1987-08, 3083-04, #### [facility] CLIA [id number] [address] [address] [place] AMERICAChloride [Moles/Vol]97 mmol/XQrw26-039TryhbinamBethesda North Hospital on above:Order Comment: Specimen Type: BLOOD SPECIMEN Ordering Facility: [facility] Address: [address] [place], [place] [address]Performed By: #### 1987-08, 3083-04, #### [facility] CLIA [id number] [address] [place] [address] [place] AMERICACO2 [Moles/Vol]24 mmol/L Xhlkgp51-52OpgaglbcyBethesda North Hospital on above:Order Comment: Specimen Type: BLOOD SPECIMEN Ordering Facility: [facility] Address: [address] [place] [address]Oifaxfgxx By: #### 1987-08, 3083-04, #### [facility] CLIA [id number] [address] [place], [place] [address] [place] AMERICACreatinine [Mass/Vol]0.93 mg/dLNormal0.73-1.22[facility] on above:Order Comment: Specimen Type: BLOOD SPECIMEN Ordering Facility: [facility] Address: [address] [place], [place] [address]Performed By: #### 1987-, 308-, 23237-2 #### [facility] CLIA [id number] [address] [address] [place] AMERICACreatinine and Glomerular filtration rate.predicted panel (S/P/Bld)92 mL/min/1.73m???Normal>=60[facility] on above:Order Comment: Specimen Type: BLOOD SPECIMEN Ordering Facility: [facility] Address: [address] [place] [place] [address]Mloofs Comment: Estimated Glomerular Filtration Rate (eGFR) is [...] reflect actual GFR.Performed By: #### 1987-08, 3083-04, 37487-4 #### [facility] CLIA [id number] [address] [place] [address] [place] AMERICAGlucose [Mass/Vol]213 mg/dL Adkq25-22UinmmbzaqBethesda North Hospital on above:Order Comment: Specimen Type: BLOOD SPECIMEN Ordering Facility: [facility] Address: [address] [place] [address]Qtgipj Comment: The [place] Diabetes Association (ADA) provides guidance for cutoff [...] Standards of Medical Care in Diabetes 2016, [place] Diabetes Association. Diabetes Care. 2016.39(Suppl 1).Performed By: #### 1987, 3083-04, #### [facility] CLIA [id number] [address] [address] [place] AMERICAPotassium [Moles/Vol]4.5 mmol/LNormal3.7-5.1CWayne Hospital on above:Order Comment: Specimen Type: BLOOD SPECIMEN Ordering Facility: [facility] Address: [address] [place], [place] [address]Performed By: #### 1987-08, 3083-04, #### [facility] CLIA [id number] [address] [place] [address] [place] AMERICAProtein [Mass/Vol]7.1 g/dL Normal6.3-8.0[facility] on above:Order Comment: Specimen Type: BLOOD SPECIMEN Ordering Facility: [facility] Address: [address] [place], [place] [address]Performed By: #### 1987-08, 3083-04, #### [facility] CLIA [id number] [address] [place] [address] [place] AMERICASodium [Moles/Vol]135 mmol/L Xeq540-707GlwruirkdBethesda North Hospital on above:Order Comment: Specimen Type: BLOOD SPECIMEN Ordering Facility: [facility] Address: [address] [place], [place] [address]Performed By: #### 1987-08, 3083-04, #### [facility] CLIA [id number] [address] [place], [place] [address] [place] AMERICAUrea nitrogen [Mass/Vol]20 mg/dLNormal9-24[facility] on above:Order Comment: Specimen Type: BLOOD SPECIMEN Ordering Facility: [facility] Address: [address] [place], [place] [address]Performed By: #### 1987-08, 3083-04, #### [facility] CLIA [id number] [address] [address] [place] AMERICAESR Westergren method (Bld) [Velocity]on 95-55-1499YJG (Bld) [Velocity]12 mm/hNormal0-15[facility] HospitalCompromedica char[facility] on above:Order Comment: Specimen Type: BLOOD SPECIMEN Ordering Facility: [facility] Address: [address] [place], [place] [address]Performed By: #### 30899-3, 4537-7 #### [facility] CLIA [id number] [address] [place] [address] [place] AMERICAErythrocyte distribution width Auto (RBC) [Ratio]on 90-53-4726Yrrsqqeddmq distribution width (RBC) [Ratio]Erythrocyte distribution width [Ratio] by Automated count11.5-15.0 [facility] HospitalHematocrit Auto (Bld) [Volume fraction]on 47-83-8493Eyosavzbfg (Bld) [Volume fraction]Hematocrit [Volume Fraction] of Blood by Automated count39.0-51.0[facility] HospitalHemoglobin [Mass/volume] in Bloodon 87-44-0296Papyqlbokw (Bld) [Mass/Vol]Hemoglobin [Mass/volume] in Blood13.0-17.0[facility] HospitalLaboratory - Chemistry and Chemistry - challengeon 33-06-1432Wtiwfnc [Mass/Vol]4.1 g/dL 3.9-4.9[facility] HospitalALP [Catalytic activity/Vol]67 U/L38-113 [facility] HospitalALT [Catalytic activity/Vol]73 U/TIiem41-78 [facility] HospitalAST [Catalytic activity/Vol]35 U/L14-40 [facility] HospitalBilirubin [Mass/Vol]0.7 mg/dL0.2-1.3FWayne HospitalCalcium [Mass/Vol]9.7 mg/dL8.5-10.2FWayne HospitalChloride [Moles/Vol]97 mmol/OPgo29-327KkftbuwdoBrecksville Va / Crille HospitalCO2 [Moles/Vol]24 mmol/V47-90YsnogrrblBrecksville Va / Crille HospitalCreatinine [Mass/Vol]0.93 mg/dL0.73-1.22[facility] HospitalGlucose [Mass/Vol] 213 mg/cZQctz22-32PndqmjqfoBrecksville Va / Crille HospitalComment on above:The [place] Diabetes Association (ADA) provides guidance for cutoff [...] diabetes.Reference: Standardsof Medical Care in Diabetes 2016, [place] Diabetes Association. Diabetes Care. 2016.39(Suppl 1). Potassium [Moles/Vol]4.5 mmol/L3.7-5.1FWexner Medical Centerodium [Moles/Vol]135 mmol/BFse336-894GcnqeewxjBrecksville Va / Crille HospitalUrate [Mass/Vol] 6.4 mg/dL4.0-8.1FWayne HospitalUrea nitrogen [Mass/Vol]20 mg/dL9-24[facility] HospitalLaboratory - Hematology and Cell countson 22-06-7629QBW (Bld) [Velocity]12 mm/h0-15[facility] HospitalLeukocytes [#/volume] corrected for nucleated erythrocytes in Blood by Automated counon 15-50-4535PBB corrected for nucl RBC Auto (Bld) [#/Vol] Leukocytes [#/volume] corrected for nucleated erythrocytes in Blood by Automated counHigh3.70-11.00[facility] HospitalMCH Auto (RBC) [Entitic mass]on 16-58-4360YUD (RBC) [Entitic mass]MCH [Entitic mass] by Automated count High26.0-34.0[facility] HospitalHC Auto (RBC) [Mass/Vol]on 89-40-7546XTFW (RBC) [Mass/Vol]MCHC [Mass/volume] by Automated count30.5-36.0 [facility] HospitalMCV Auto (RBC) [Entitic vol]on 09-61-9250AAE (RBC) [Entitic vol]MCV [Entitic volume] by Automated ptqufRwtj94.0-100.0 [facility] HospitalNo Panel Informationon 895554-Jcnfkev Vitamin D Total19.2 ng/mLLow31.0-80.0[facility] HospitalComment on above:Classification of 25 [place] Vitamin D status: Deficiency/Insufficiency: < or = 30 ng/ml.Sufficiency/Optimal Levels: 31-80 ng/mLToxicity: > 100 ng/mL. Test performed by chemiluminescent immunoassay.C-Reactive Protein, Quantitative0.6 mg/dL<0.9[facility] HospitalEstimated GFR (CKD-EPI)92 mL/min/1.73m???>=60[facility] HospitalComment on above:Estimated Glomerular Filtration Rate (eGFR) [...] reflect actual GFR.Nucleated RBC Auto (Bld) [#/Vol]on 68-48-7827Mvgtkkucu RBC (Bld) [#/Vol]Nucleated erythrocytes [#/volume] in Blood by Automated count<0.01[facility] HospitalPlatelet mean volume Auto (Bld) [Entitic vol]on 98-36-1434Ryfmkcng mean volume (Bld) [Entitic vol] Platelet mean volume [Entitic volume] in Blood by Automated count9.0-12.7 [facility] Cr[facility] HospitalPlatelets Auto (Bld) [#/Vol]on 06-30-2024 Platelets (Bld) [#/Vol]Platelets [#/volume] in Blood by Automated gbuzh096-290 [facility] HospitalProtein [Mass/volume] in Serum or Plasmaon 15-72-2528Xzmcjix [Mass/Vol]Protein [Mass/volume] in Serum or Plasma6.3-8.0 [facility] Cr[facility] HospitalRBC Auto (Bld) [#/Vol]on 45-03-2066MER (Bld) [#/Vol]Erythrocytes [#/volume] in Blood by Automated count4.20-6.00[facility] Health Miamisburgerum or plasma anion gap determinationon 67-64-6776Gsmoy gap [Moles/Vol]Serum or plasma anion gap determination8-15[facility] Crille HospitalUrate SerPl-mCncon 98-61-1800Rmjwt [Mass/Vol]6.4 mg/dLNormal 4.0-8.1CWayne Hospital on above:Order Comment: Specimen Type: BLOOD SPECIMEN Order[facility] Address: [address] [place], [place] [address]Performed By: #### 1988-5, 3084-1, 65932-3 #### [facility] CLIA [id number] [address] [place] [address] [address]CT WATCHMAN FULL CONTRASTon 78-39-9436JG WATCHMAN FULL CONTRASTInterpreted By: Marcial Boyd, ADDENDUM: [...] PM -------- ORIGINAL REPORT -------- Dictation workstation: [id number] Interpreted By: Marcial Barreto, STUDY: CT WATCHMAN FULL CONTRAST; 06/13/2024 2:23 pm INDICATION: Signs/Symptoms:A-fib, Post Watchman. COMPARISON: None. ACCESSION NUMBER(S): [id number] ORDERING CLINICIAN: BIRD KOWALSKI TECHNIQUE: Using multidetector [...] surface/left atrial aspect of closure device. Reading Wig Sales Consultant: Dr. Marcial Barreto, Date: 06/15/2024 2:13 pm Signed by: Marcial Barreto 06/15/2024 2:17 PM Dictation workstation: [id number] Regional Medical CenterAlbumin [Mass/volume] in Serum or Plasma by Bromocresol green (BCG) dye binding methoOrdered By: Bird Kowalski on 85-59-9393Jdfvwmo BCG dye [Mass/Vol] Albumin [Mass/volume] in Serum or Plasma by Bromocresol green (BCG) dye binding metho3.5-5.7FWayne HospitalCalcium [Mass/volume] in Serum or PlasmaOrdered By: Bird Kowalski on 94-34-6394Tvchdcz [Mass/Vol]Calcium [Mass/volume] in Serum or Plasma8.6-10.3FWayne HospitalCarbon dioxide, total [Moles/volume] in Serum or PlasmaOrdered By: Bird Kowalski on 16-42-4317AL5 [Moles/Vol]Carbon dioxide, total [Moles/volume] in Serum or Plasma 21.0-31.0[facility] HospitalChloride [Moles/volume] in Serum or PlasmaOrdered By: Bird Kowalski on 33-67-0811Fdgkhfav [Moles/Vol]Chloride [Moles/volume] in Serum or Naxhof25-362FihnjtswqBrecksville Va / Crille Hospital Creatinine [Mass/volume] in Serum or PlasmaOrdered By: Bird Kowalski on 18-40-5722Nhidiiziao [Mass/Vol]Creatinine [Mass/volume] in Serum or Plasma 0.70-1.30[facility] HospitalGlucose [Mass/volume] in Serum or PlasmaOrdered By: Bird Kowalski on 23-49-8718Ihzjbut [Mass/Vol]Glucose [Mass/volume] in Serum or BvbldnCwcx98-019YjshtappkBrecksville Va / Crille Hospital Comment on above:ADA recommended reference rangeRandom Glucose Reference Range is dependent on time and content of last meal. Glucose of more than 200 mg/dL in a nonstressed, ambulatory subject supports the diagnosisof Diabetes Mellitus.No Panel InformationOrdered By: Bird Kowalski on 22-32-8751Hzcnuzwaa GFR (CKD-EPI)> 60.0 mL/MinBrecksville Va / Crille HospitalPharmacy Creatinine Clearance (Chem N/[facility], AvonPhosphate [Mass/volume] in Serum or Plasma Ordered By: Bird Kowalski on 80-38-4545Zivjgfxwd [Mass/Vol]Phosphate [Mass/volume] in Serum or Plasma2.5-4.5FWayne Hospital Potassium [Moles/volume] in Serum or PlasmaOrdered By: Bird Kowalski on 03-21-5207Bttkbhdmk [Moles/Vol]Potassium [Moles/volume] in Serum or Plasma 3.5-5.1FWayne HospitalRenal Function Panelon 03-01-1069Oqiclzo [Mass/Vol]4.1 g/dLNormal3.5-5.7The [facility] Physician GroupComment on above: Result Comment: PERFORMED BY: [facility] [address] [place] [address] PATHOLOGIST FIBER ANALYST OSCAR HAY M.D.Performed By: #### RENAL ####[address] [address] USAAnion gap [Moles/Vol]11.9 mmol/LNormal6.0-15.0The [facility] Physician GroupComment on above:Performed By: #### RENAL ####[address] [place] [address] USACalcium [Mass/Vol]9.1 mg/dLNormal8.6-10.3The [facility] Physician [facility] Comment on above:Performed By: #### RENAL ####[address] [address] USAChloride [Moles/Vol]102 mmol/XCqzjiu12-776Dvb [facility] Physician [facility] CenterComment on above:Performed By: #### RENAL ####[address] [address] USACO2 [Moles/Vol]27.4 mmol/LTuwaxy04.0-31.0The [facility] Physician GroupComment on above:Performed By: #### RENAL ####[address] [address] USACreatinine [Mass/Vol]0.91 mg/dLNormal0.70-1.30The [facility] Physician [facility] CenterComment on above:Performed By: #### RENAL ####[place] [id number] USAGFR/1.73 sq M.predicted MDRD (S/P/Bld) [Vol rate/Area]mL/min/{1.73_m2}NormalThe [facility] Physician GroupComment on above:Performed By: #### RENAL ####[place] [address] USAGlucose [Mass/Vol]169 mg/dL Uoma80-253Rut [facility] Physician GroupComment on above:Result Comment: Random Glucose Reference Range is dependent on time and content of last meal. Glucose of more than 200 mg/dL in a nonstressed, ambulatory subject supports the diagnosis of Diabetes Mellitus. ADA recommended reference rangePerformed By: #### RENAL ####[place] [address] USAPhosphate [Mass/Vol]3.9 mg/dL Normal2.5-4.5The [facility] Physician GroupComment on above:Performed By: #### RENAL ####[place] [address] [place] Potassium [Moles/Vol]4.3 mmol/LNormal3.5-5.1The [facility] Physician GroupComment on above:Performed By: #### RENAL ####[place] [id number] USASodium [Moles/Vol]137 mmol/RYvhjfp194-119Lxo [facility] Physician GroupComment on above:Performed By: #### RENAL ####[place] [address] USAUrea nitrogen [Mass/Vol]24 mg/dLNormal7-25The [facility] Physician GroupComment on above: Performed By: #### RENAL ####[place] [address] USASerum or plasma anion gap determinationOrdered By: Bird Kowalski on 24-23-8113Dvcyg gap [Moles/Vol]Serum or plasma anion gap determination6.0-15.0[facility] [place] [Moles/volume] in Serum or PlasmaOrdered By: Bird Kowalski on 71-40-6831Njaibo [Moles/Vol]Sodium [Moles/volume] in Serum or Mxjsrf101-246CleydmmtqBrecksville Va / Crille HospitalUrea nitrogen [Mass/volume] in Serum or PlasmaOrdered By: Bird Kowalski on 05-29-2024 Urea nitrogen [Mass/Vol]Urea nitrogen [Mass/volume] in Serum or Plasma7-25 [facility] HospitalBasic metabolic 2000 panelon 88-96-1207Qlgio gap [Moles/Vol]13 mmol/L10 - 20 mmol/[facility] HospitalCalcium [Mass/Vol]9.1 mg/dL8.6 - 10.6 mg/dLUnCleveland Clinic Mercy HospitalChloride [Moles/Vol]100 mmol/L98 - 107 mmol/[facility] HospitalCO2 [Moles/Vol]26 mmol/L21 - 32 mmol/[facility] HospitalCreatinine [Mass/Vol]1.02 mg/dL0.50 - 1.30 mg/dLUnCleveland Clinic Mercy HospitalGFR/1.73 sq M.predicted among non-blacks MDRD (S/P/Bld) [Vol rate/Area]82 mL/min/{1.73_m2}- PINFUniGood Samaritan Hospital on above: Calculations of estimated GFR are performed using the 2020 CKD-EPI Study Refit equation without therace variable for the IDMS-Traceable creatinine methods. https://jasn.asnjournals.org/content//ASN.6086000008 Glucose [Mass/Vol]142 mg/gQJanl60 - 99 mg/dLUnCleveland Clinic Mercy Hospital Potassium [Moles/Vol]3.7 mmol/L3.5 - 5.3 mmol/[facility] Sodium [Moles/Vol]135 mmol/WIvo477 - 145 mmol/[facility] Urea nitrogen [Mass/Vol]18 mg/dL6 - 23 mg/dLUnCleveland Clinic Mercy Hospital Blood type and Indirect antibody screen panel (Bld)on 61-44-7372NNV group Nom (Bld)AUnCleveland Clinic Mercy HospitalBlood group antibody screen QlNegative [facility] WestD Ag Ql (Bld)PositiveUnProMedica Defiance Regional Hospital on above:2nd ABO test required. Order and Collect VERAB [facility] WestCB W Auto Differential panel (Bld)on 98-63-1743Gnqpzquro (Bld) [#/Vol]0.04 10*3/uLRegency Hospital [facility] West Basophils/100 WBC (Bld)0.4 %0.0 - 2.0 %[facility] Eosinophils (Bld) [#/Vol]0.02 10*3/uLRegency Hospital [facility] West Eosinophils/100 WBC (Bld)0.2 %0.0 - 6.0 %[facility] Erythrocyte distribution width (RBC) [Ratio]11.8 %11.5 - 14.5 %[facility] WestHematocrit (Bld) [Volume fraction]45.3 %41.0 - 52.0 % [facility] WestHemoglobin (Bld) [Mass/Vol]15.6 g/dL13.5 - 17.5 g/dLUnCleveland Clinic Mercy HospitalImmaselect medical specialty hospital [facility] granulocytes (Bld) [#/Vol]0.09 10*3/uLRegency Hospital Cleveland WestImsaint john's regional health center granulocytes/100 WBC (Bld)0.9 % 0.0 - 0.9 %[facility] on above:Immature Granulocyte Count (IG) includes promyelocytes, myelocytes and metamyelocytes but does not include bands. Percent differential counts (%) should be interpreted in the context of the absolute cell counts (cells/UL).Interpretation and review of laboratory resultsAbnormalUniGlenbeigh HospitalLymphocytes (Bld) [#/Vol]1.14 10*3/uLLowUnCleveland Clinic Mercy HospitalLymphocytes/100 WBC (Bld) 11 %13.0 - 44.0 %[facility] WestMCH (RBC) [Entitic mass]35.9 gcBrsn58.0 - 34.0 pgMemorial Health System Selby General HospitalHC (RBC) [Mass/Vol]34.4 g/dL32.0 - 36.0 g/dLMemorial Health System Selby General HospitalV (RBC) [Entitic vol]104 cKNwln46 - 100 fLUniGlenbeigh HospitalMonocytes (Bld) [#/Vol]0.74 10*3/[facility] HospitalMonocytes/100 WBC (Bld)7.1 %2.0 - 10.0 % [facility] WestNeutrophils (Bld) [#/Vol]8.36 10*3/uLKettering HealthComment on above:Percent differential counts (%) should be interpreted in the context of the absolute cell counts (cells/uL). Neutrophils/100 WBC (Bld)80.4 %40.0 - 80.0 %[facility] Nucleated RBC/100 WBC (Bld) [Ratio]0 %[facility] WestPlatelets (Bld) [#/Vol]143 10*3/[facility] ShawRBC (Bld) [#/Vol] 4.35 10*6/[facility], [facility] ShawWBC (Bld) [#/Vol]10.4 10*3/uL [facility] TroyCT watchman full contraston . No evidence of [...] Alonzo Holbrook 01/29/2024 10:03 AM Dictation workstation: [id number] By: Alonzo Holbrook, STUDY: CT WATCHMAN FULL CONTRAST; 01/29/2024 9:29 am INDICATION: Signs/Symptoms:A-fib, Pre-Watchman, MARIO Sizing, R/O MARIO Thrombus. ,I48.91 Unspecified atrial fibrillation (Multi) COMPARISON: None. ACCESSION NUMBER(S): [id number] ORDERING CLINICIAN: BIRD KOWALSKI TECHNIQUE: Using multi-detector [...] suspicious osseous lesions within included chest. Alonzo Barksdale MD - 01/29/2024 Interpreted By: Alonzo Holbrook, STUDY: CT WATCHMAN FULL CONTRAST; 01/29/2024 9:29 am INDICATION: Signs/Symptoms:A-fib, Pre-Watchman, MARIO Sizing, R/O MARIO Thrombus. ,I48.91 Unspecified atrial fibrillation (Multi) COMPARISON: None. ACCESSION NUMBER(S): [id number] ORDERING CLINICIAN: BIRD KOWALSKI TECHNIQUE: Using multi-detector [...] Alonzo Holbrook 01/29/2024 10:03 AM Dictation workstation: [id number] [facility] Work Phone: Radiology Study observation (narrative)[facility] Work Phone: [phone] watchman full contrastOrdered By: Alonzo Holbrook on 65-49-6282CzbfeydbnfCleveland Clinic Mercy Hospital Work Phone: [phone] 12 leadOrdered By: Adrien Burk on 39-93-8309Rztoxz Ubnz99ORMZmmawcthuvFirelands Regional Medical Center South Campus Work Phone: [phone] Jpwr79yeqeowiYdcrcenagcMercy Health – [facility] Hospital Work Phone: [phone] Ecwlmf[address] [facility] Work Phone: [phone] Gpjxg[address] [facility] Work Phone: [phone] Zdjgfjni[address] [facility] Work Phone: [phone] Lryeq[address] [facility] Work Phone: [phone] Kbotb11scmyyZrdonqprlxSelect [facility] Work Phone: [phone] Cmxdwxnj[address] [facility] Work Phone: [phone] Xpkapumb[address] [facility] Work Phone: QTC Calculation(Bazett)[address] [facility] Work Phone: [phone] Oqtfeycqvx[address] [facility] Work Phone: [phone] [place]-[facility]deSal[facility] Work Phone: [phone] Xjnf056annbrshPuibwiyluiSalem City Hospital Work Phone: [phone] Fvlrmx956 msUnCleveland Clinic Mercy Hospital Work Phone: Ventricular Mdkv36OOBPwimaotslpCleveland Clinic Mercy Hospital Work Phone: UnCleveland Clinic Mercy Hospital Work Phone: ECG 12 leadon 59-11-5496Zmmcw rhythm with occasional Premature ventricular complexes Inferior infarct , age undetermined Abnormal ECG No previous ECGs available Confirmed by Adrien Burk ([id number]) on 01/29/2024 4:23:52 PMAdrien Garcia MD - 01/29/2024 Sinus rhythm with occasional Premature ventricular complexes Inferior infarct , age undetermined Abnormal ECG No previous ECGs available Confirmed by Adrien Burk ([id number]) on 01/29/2024 4:23:52 PM [facility] Work Phone: Magnesiumon 84-80-4657Glslbmdkz [Mass/Vol]1.43 mg/dL Low1.60 - 2.40 mg/dLUnCleveland Clinic Mercy HospitalNo Panel Informationon 34-70-0320Vhfvurbtfmaino and review of laboratory resultsAbnoOur Lady of Mercy Hospital - AndersonUnCleveland Clinic Mercy HospitalPT Coag (PPP) [Time]on 79-10-1190AMW Coag (PPP) [Relative time]1 {INR}0.9 - 1.1UnCleveland Clinic Mercy HospitalInterpretation and review of laboratory resultsNormKettering Health MiamisburgUnCleveland Clinic Mercy HospitalProtime-INRon 01-29-2024 PT Coag (PPP) [Time]11 [facility] HospitalUS Heart Transthoracic Ordered By: Haris Beverly on 68-88-8092PJ EF53 %[facility] Work Phone: UnCleveland Clinic Mercy Hospital Work Phone: US Heart Transthoracicon 01-29-2024 [facility], [address] [place] [address] and TRANSTHORACIC ECHOCARDIOGRAM REPORT Patient Name: ESME KAMINSKI Reading Physician: [id number] Haris Beverly MD Study Date: 01/29/2024 Ordering Provider: [id number] SAMMI LOREDO MRN/PID: [id number] Fellow: Nurse: Date of /Age: 9 1960 / 63 years Exposure Machine Operator: Tanisha VASQUEZ Gender: M Additional Staff: Height: 177.00 cm Admit Date: 01/29/2024 Weight: 110.68 kg Admission Status: Inpatient - Routine BSA / BMI: 2.26 m2 / 35.33 kg/m2 Blood Pressure: 138/84 mmHg Department Location: [facility] Records Analyst Study Type: TRANSTHORACIC ECHO (TTE) LIMITED Diagnosis/ICD: Presence of other cardiac implants and grafts-Z95.818 Indication: Post LAAO CPT Code: Echo Limited-36282 Patient History: Pertinent History: A-Fib, CAD, Hyperlipidemia [...] machine learning algorithm (EchoGo Heart Failure by [employer]), the analysis of the apical 4-chamber echocardiogram [...] 53 % LV EF Reported: 53 % [id number] Haris Beverly MD Electronically signed on 01/29/2024 at 3:36:47 PM Final Haris Sevilla MD - 01/29/2024 [facility], [address] [place] [address] and TRANSTHORACIC ECHOCARDIOGRAM REPORT Patient Name: ESME Fischer Physician: [id number] Haris Beverly MD Study Date: 01/29/2024 Ordering Provider: [id number] SAMMI LOREDO MRN/PID: [id number] Fellow: Nurse: Date of /Age: 9 1960 / 63 years Exposure Machine Operator: Tanisha VASQUEZ Gender: M Additional Staff: Height: 177.00 cm Admit Date: 01/29/2024 Weight: 110.68 kg Admission Status: Inpatient - Routine BSA / BMI: 2.26 m2 / 35.33 kg/m2 Blood Pressure: 138/84 mmHg Department Location: [facility] Records Analyst Study Type: TRANSTHORACIC ECHO (TTE) LIMITED Diagnosis/ICD: Presence of other cardiac implants and grafts-Z95.818 Indication: Post LAAO CPT Code: Echo Limited-36283 Patient History: Pertinent History: A-Fib, CAD, Hyperlipidemia [...] machine learning algorithm (EchoGo Heart Failure by [employer]), the analysis of the apical 4-chamber echocardiogram [...] 53 % LV EF Reported: 53 % [id number] Haris Beverly MD Electronically signed on 01/29/2024 at 3:36:47 PM Final [facility] Work Phone: [facility], [address] [place] [address] and TRANSTHORACIC ECHOCARDIOGRAM REPORT Patient Name: ESME Fischer Physician: [id number] Savana Williamson MD Study Date: 01/29/2024 Ordering Provider: [id number] SAMMI LOREDO MRN/PID: [id number] Fellow: Nurse: Date of /Age: 9 1960 / 63 years Exposure Machine Operator: Angela Tran RDCS Gender: M Additional Staff: Height: 177.80 cm Admit Date: Weight: 110.68 kg Admission Status: Inpatient - Routine BSA / BMI: 2.27 m2 / 35.01 kg/m2 Blood Pressure: 121/71 mmHg Department Location: [facility] Records Analyst Study Type: TRANSTHORACIC ECHO (TTE) LIMITED Diagnosis/ICD: Encounter for other preprocedural examination-Z01.818 Indication: Pre LAAO CPT Code: Echo Limited-54916 Patient History: Pertinent History: Persistent afib, ICM, [...] however appears to have an inferior/inferolateral wall ouso7ra abnormality. Left Atrium: The left atrium is [...] however appears to have an inferior/inferolateral wall vjph4cq abnormality. 4. The left atrium is enlarged. 5. There is moderate mitral annular calcification. 6. Limited TTE pre LAAO closure device placement. 7. No prior echocardiogram available for comparison. QUANTITATIVE DATA SUMMARY: AORTA MEASUREMENTS: Normal Ranges: Ao Sinus, d: 4.30 cm (2.1-3.5cm) [id number] Savana Williamson MD Electronically signed on 01/29/2024 at 3:21:38 PM Final Savana Valenzuela MD - 01/29/2024 [facility], [address] [place] [address] and TRANSTHORACIC ECHOCARDIOGRAM REPORT Patient Name: ESME Fischer Physician: [id number] Savana Williamson MD Study Date: 01/29/2024 Ordering Provider: [id number] SAMMI LOREDO MRN/PID: [id number] Fellow: Nurse: Date of /Age: 9 1960 / 63 years Exposure Machine Operator: Angela Tran [facility] Gender: M Additional Staff: Height: 177.80 cm Admit Date: Weight: 110.68 kg Admission Status: Inpatient - Routine BSA / BMI: 2.27 m2 / 35.01 kg/m2 Blood Pressure: 121/71 mmHg Department Location: [facility] Records Analyst Study Type: TRANSTHORACIC ECHO (TTE) LIMITED Diagnosis/ICD: Encounter for other preprocedural examination-Z01.818 Indication: Pre LAAO CPT Code: Echo Limited-69022 Patient History: Pertinent History: Persistent afib, ICM, [...] however appears to have an inferior/inferolateral wall essd5mv abnormality. Left Atrium: The left atrium is [...] however appears to have an inferior/inferolateral wall uurr6nk abnormality. 4. The left atrium is enlarged. 5. There is moderate mitral annular calcification. 6. Limited TTE pre LAAO closure device placement. 7. No prior echocardiogram available for comparison. QUANTITATIVE DATA SUMMARY: AORTA MEASUREMENTS: Normal Ranges: Ao Sinus, d: 4.30 cm (2.1-3.5cm) [id number] Savana Williamson MD Electronically signed on 01/29/2024 at 3:21:38 PM Final [facility] Work Phone: US Heart TransthoracicOrdered By: Savana Williamson on 20-88-8864BaqouceqkqCleveland Clinic Mercy Hospital Work Phone: Basophils Auto (Bld) [#/Vol]Ordered By: Bird Kowalski on 00-45-5569Xugadxdoz (Bld) [#/Vol]0.1 10*3/uL0.0-0.2FWayne HospitalBasophils (Bld) [#/Vol]Automated basophil count0.0-0.2FWayne HospitalBasophils/100 WBC Auto (Bld)Ordered By: Bird Kowalski on 01-24-2024 Basophils/100 WBC (Bld)0.4 %.[facility] HospitalBasophils/100 WBC (Bld)Automated basophil %.[facility] HospitalCalcium [Mass/volume] in Serum or PlasmaOrdered By: Bird Kowalski on 19-90-7877Efyroyx [Mass/Vol]9.6 mg/dL8.6-10.3FWayne HospitalCalcium [Mass/Vol]Calcium [Mass/volume] in Serum or Plasma8.6-10.3FWayne HospitalCarbon dioxide, total [Moles/volume] in Serum or PlasmaOrdered By: Bird Kowalski on 14-91-6941KX7 [Moles/Vol]28.4 mmol/L21.0-31.0[facility] CO2 [Moles/Vol]Carbon dioxide, total [Moles/volume] in Serum or Gypdst08.0-31.0 [facility] HospitalChloride [Moles/volume] in Serum or Plasma Ordered By: Bird Kowalski on 56-55-6690Qnljjzag [Moles/Vol]101 mmol/L98-107 [facility] HospitalChloride [Moles/Vol]Chloride [Moles/volume] in Serum or Fvqftm03-483PgntxprnhBrecksville Va / Crille HospitalCreatinine [Mass/volume] in Serum or PlasmaOrdered By: Bird Kowalski on 36-50-5550Kpsvhrtwws [Mass/Vol] 0.98 mg/dL0.70-1.30[facility] HospitalCreatinine [Mass/Vol] Creatinine [Mass/volume] in Serum or Plasma0.70-1.30[facility] HospitalEosinophils Auto (Bld) [#/Vol]Ordered By: Bird Kowalski on 01-24-2024 Eosinophils (Bld) [#/Vol]0.1 10*3/uL0.0-0.45[facility] Eosinophils (Bld) [#/Vol]Automated eosinophil count0.0-0.45[facility] HospitalEosinophils/100 WBC Auto (Bld)Ordered By: Bird Kowalski on 11-33-4263Avbojlmpqqr/100 WBC (Bld)0.4 %.[facility] Eosinophils/100 WBC (Bld)Automated eosinophil %.[facility] Crille HospitalErythrocyte distribution width Auto (RBC) [Ratio]Ordered By: Bird Kowalski on 04-45-0652Dkvkqpfhklj distribution width (RBC) [Ratio]13.3 %12.0-14.8 [facility] Crille HospitalErythrocyte distribution width (RBC) [Ratio] Erythrocyte distribution width [Ratio] by Automated count12.0-14.8[facility] HospitalGlucose [Mass/volume] in Serum or PlasmaOrdered By: Bird Kowalski on 35-59-2556Jvpgmns [Mass/Vol]160 mg/dSPtef34-146FyiwwqsfxBrecksville Va / Crille HospitalComment on above:ADA recommended reference rangeRandom Glucose Reference Range is dependent on time and content of last meal. Glucose of more than 200 mg/dL in a nonstressed, ambulatory subject supports the diagnosisof Diabetes Mellitus.Glucose [Mass/Vol]Glucose [Mass/volume] in Serum or FixdxmMflx54-494SfymnfzwyBrecksville Va / Crille HospitalComment on above:ADA recommended reference rangeRandom Glucose Reference Range is dependent on time and content of last meal. Glucose of more than 200 mg/dL in a nonstressed, ambulatory subject supports the diagnosisof Diabetes Mellitus.Hematocrit Auto (Bld) [Volume fraction]Ordered By: Bird Kowalski on 94-22-0426Mtaototpdh (Bld) [Volume fraction]46.5 %38.8-50.0[facility] Cr[facility] HospitalHematocrit (Bld) [Volume fraction]Hematocrit [Volume Fraction] of Blood by Automated count 38.8-50.0[facility] Cr[facility] HospitalHemoglobin [Mass/volume] in Blood Ordered By: Bird Kowalski on 93-50-2664Nejrjqlduq (Bld) [Mass/Vol]16.0 g/dL 13.0-17.0[facility] Cr[facility] HospitalHemoglobin (Bld) [Mass/Vol]Hemoglobin [Mass/volume] in Blood13.0-17.0[facility] HospitalLeukocytes [#/volume] corrected for nucleated erythrocytes in Blood by Automated coun Ordered By: Bird Kowalski on 64-03-0195YDO corrected for nucl RBC Auto (Bld) [#/Vol]12.6 10*3/uLHigh4.1-10.5FWayne HospitalWBC corrected for nucl RBC Auto (Bld) [#/Vol]Leukocytes [#/volume] corrected for nucleated erythrocytes in Blood by Automated counHigh4.1-10.5FWayne HospitalLymphocytes Auto (Bld) [#/Vol]Ordered By: Bird Kowalski on 01-24-2024 Lymphocytes (Bld) [#/Vol]1.4 10*3/uL1.00-4.8[facility] Lymphocytes (Bld) [#/Vol]Lymphocytes [#/volume] in Blood by Automated count 1.00-4.8[facility] Cr[facility] HospitalLymphocytes/100 WBC Auto (Bld)Ordered By: Bird Kowalski on 98-03-0109Oviwvukvvwg/100 WBC (Bld)11.4 %.[facility] HospitalLymphocytes/100 WBC (Bld)Lymphocytes/100 leukocytes in Blood by Automated count.[facility] Auto (RBC) [Entitic mass] Ordered By: Bird Kowalski on 86-82-0544NCP (RBC) [Entitic mass]36.3 pgHigh 27.5-35.2FVan Wert County Hospital (RBC) [Entitic mass]MCH [Entitic mass] by Automated cqyrnWyrc98.5-35.2FWayne HospitalMCHC Auto (RBC) [Mass/Vol]Ordered By: Bird Kowalski on 06-76-8627GBJL (RBC) [Mass/Vol]34.3 g/dL32.5-35.6FCleveland Clinic South Pointe HospitalHC (RBC) [Mass/Vol]MCHC [Mass/volume] by Automated count32.5-35.6FWayne HospitalMCV Auto (RBC) [Entitic vol]Ordered By: Bird Kowalski on 97-95-3168RKS (RBC) [Entitic vol]105.8 vKVxmb44.5-101E[facility] Memorial HospitalV (RBC) [Entitic vol]MCV [Entitic volume] by Automated orfeaWuhs78.5-101[facility] HospitalMonocytes Auto (Bld) [#/Vol]Ordered By: Bird Kowalski on 01-24-2024 Monocytes (Bld) [#/Vol]0.7 10*3/uL0.0-0.8[facility] Monocytes (Bld) [#/Vol]Automated blood monocyte count0.0-0.8[facility] HospitalMonocytes/100 WBC Auto (Bld)Ordered By: Bird Kowalski on 01-24-2024 Monocytes/100 WBC (Bld)5.5 %.[facility] HospitalMonocytes/100 WBC (Bld)Automated monocyte %.[facility] Crille HospitalNeutrophils Auto (Bld) [#/Vol]Ordered By: Bird Kowalski on 07-62-5078Ytaqbtjxnwv (Bld) [#/Vol]10.4 10*3/uLHigh1.8-7.7FWayne HospitalNeutrophils (Bld) [#/Vol] Neutrophils [#/volume] in Blood by Automated countHigh1.8-7.7FWayne HospitalNeutrophils/100 WBC Auto (Bld)Ordered By: Bird Kowalski on 06-29-3475Aldnvfswuvv/100 WBC (Bld)82.3 %.[facility] Neutrophils/100 WBC (Bld)Automated neutrophil %.[facility] HospitalNo Panel InformationOrdered By: Bird Kowalski on 91-29-0944Weiptgvvo GFR (CKD-EPI)> 60.0 mL/MinBrecksville Va / Crille HospitalPharmacy Creatinine Clearance (ChemN/AFWayne HospitalNucleated erythrocytes [Presence] in Blood by Automated countOrdered By: Bird Kowalski on 01-24-2024 Nucleated RBC Auto Ql (Bld)0.1 /100{WBC}0-0.5FWayne Hospital Nucleated RBC Auto Ql (Bld)Nucleated erythrocytes [Presence] in Blood by Automated count0-0.5FWayne HospitalPlatelet mean volume Auto (Bld) [Entitic vol]Ordered By: Bird Kowalski on 86-87-4823Heghmeqi mean volume (Bld) [Entitic vol]10.2 fLHigh6.6-10.1FWayne HospitalPlatelet mean volume (Bld) [Entitic vol]Platelet mean volume [Entitic volume] in Blood by Automated countHigh6.6-10.1FWayne HospitalPlatelets Auto (Bld) [#/Vol]Ordered By: Bird Kowalski on 95-88-9485Xeekqydnu (Bld) [#/Vol]155 10*3/uL 150-450B[facility] Crille HospitalPlatelets (Bld) [#/Vol]Platelets [#/volume] in Blood by Automated -851KdzawafoiBrecksville Va / Crille Hospital Potassium [Moles/volume] in Serum or PlasmaOrdered By: Bird Kowalski on 26-22-5531Vvviseuku [Moles/Vol]4.3 mmol/L3.5-5.1FWayne HospitalPotassium [Moles/Vol]Potassium [Moles/volume] in Serum or Plasma3.5-5.1 [facility] Cr[facility] HospitalRBC Auto (Bld) [#/Vol]Ordered By: Bird Kowalski on 83-20-4344FTJ (Bld) [#/Vol]4.40 10*6/uL3.90-5.60[facility] Crille HospitalRBC (Bld) [#/Vol]Erythrocytes [#/volume] in Blood by Automated count 3.90-5.60[facility] Health Miamisburgerum or plasma anion gap determinationOrdered By: Bird Kowalski on 56-94-6582Cnfzj gap [Moles/Vol]10.9 mmol/L6.0-15.0[facility] Crille HospitalAnion gap [Moles/Vol]Serum or plasma anion gap determination6.0-15.0[facility] Miamisburgodium [Moles/volume] in Serum or PlasmaOrdered By: Bird Kowalski on 99-00-8639Mqmxpv [Moles/Vol]136 mmol/U126-084YcorbqhztKettering Health Miamisburgodium [Moles/Vol] Sodium [Moles/volume] in Serum or Mqtawf916-295XrvmrjuclBrecksville Va / Crille Hospital Urea nitrogen [Mass/volume] in Serum or PlasmaOrdered By: Bird Kowalski on 31-04-4169Senn nitrogen [Mass/Vol]20 mg/dL7[facility] Urea nitrogen [Mass/Vol]Urea nitrogen [Mass/volume] in Serum or Plasma10-31 [facility] HospitalWBC Auto (Bld) [#/Vol]Ordered By: Bird Kowalski on 77-90-2148EBS (Bld) [#/Vol]12.6 10*3/uLHigh4.1-10.5FWayne HospitalWBC (Bld) [#/Vol]Leukocytes [#/volume] in Blood by Automated countHigh 4.1-10.5FWayne HospitalCNCOon 96-51-9561HQTEZcuseg TextNormal Flower HospitalBasophils Auto (Bld) [#/Vol]on 30-78-2362Cbyicrdgs (Bld) [#/Vol]0.1 10 3/uL0.0-0.1FWayne HospitalBasophils/100 WBC Auto (Bld)on 60-64-5342Hopiubifz/100 WBC (Bld)0.7 %0.2-2.0[facility] HospitalCholesterol in LDL Calc [Mass/Vol]on 22-99-2739Fbyqtyfdsex in LDL [Mass/Vol]73.0 mg/dLBrecksville Va / Crille HospitalComment on above:<100 mg/dl YWYYLRZ211-773 mg/dl NEAR OR ABOVE DKQADKV328-764 mg/dl BORDERLINE CWON285-095 mg/dl HIGH>190 mg/dl VERY HIGHCholesterol in VLDL Calc [Mass/Vol]on 81-51-9516Ndzjzwgjtjq in VLDL [Mass/Vol]15.0 mg/dLBrecksville Va / Crille HospitalEosinophils/100 WBC Auto (Bld)on 49-74-5619Ntstbnrttjt/100 WBC (Bld)1.1 % 0.9-7.0[facility] Crille HospitalErythrocyte distribution width Auto (RBC) [Ratio]on 93-05-5222Felhozwurec distribution width (RBC) [Ratio]13.2 % 11.0-15.0[facility]ille HospitalEstimated glomerular filtration rate (GFR) non- Americanon 01-55-8457KXP/1.73 sq M.predicted among non-blacks MDRD (S/P/Bld) [Vol rate/Area]mL/min/{1.73_m2}>=60[facility] Crille HospitalGlobulin Calc (S) [Mass/Vol]on 03-08-2519Udqtaqyp (S) [Mass/Vol]3.2 g/dL [facility] HospitalHematocrit Auto (Bld) [Volume fraction]on 31-22-2155Kgcloidtwk (Bld) [Volume fraction]43.6 %42.0-54.0[facility] HospitalHemoglobin [Mass/volume] in Bloodon 53-06-5369Tteqwddvuh (Bld) [Mass/Vol]15.2 g/dL14.0-18.0[facility]ille HospitalLaboratory - Chemistry and Chemistry - challengeon 75-85-4274Uwecaan [Mass/Vol]3.4 g/dL 3.4-5.0[facility] HospitalALP [Catalytic activity/Vol]53 U/L46-116 [facility] HospitalALT [Catalytic activity/Vol]48 U/L16-63 [facility] HospitalAST [Catalytic activity/Vol]19 U/L15-37 [facility] HospitalBilirubin [Mass/Vol]0.7 mg/dL0.2-1.0[facility] HospitalCalcium [Mass/Vol]8.6 mg/dL8.5-10.1FWayne HospitalChloride [Moles/Vol]103 mmol/Y59-560LfvmxrdbdBrecksville Va / Crille HospitalCholesterol [Mass/Vol]141 mg/dL<=200[facility] Cholesterol in HDL [Mass/Vol]53 mg/gV10-52XtzzztypkBrecksville Va / Crille Hospital Comment on above:> or =60 mg/dl - LOW CARDIOVASCULAR RISK<40 mg/dl - HIGH CARDIOVASCULAR RISKCO2 [Moles/Vol]29.6 mmol/L21.0-32.0[facility] HospitalCreatinine [Mass/Vol]0.87 mg/dL0.70-1.30[facility] GFR/1.73 sq M.predicted MDRD (S/P/Bld) [Vol rate/Area]mL/min/{1.73_m2}>=60 [facility] HospitalGlucose [Mass/Vol]113 mg/iDZicu64-406RbnqfvjejBrecksville Va / Crille HospitalPotassium [Moles/Vol]4.3 mmol/L3.5-5.1FWayne HospitalProtein [Mass/Vol]6.6 g/dL6.4-8.2FWayne Hospital Sodium [Moles/Vol]138 mmol/Y214-607VmdnrxgqkBrecksville [facility] HospitalTriglyceride [Mass/Vol]75 mg/dL<=150[facility] HospitalTSH Qn1.694 m[IU]/L 0.358-3.740[facility] HospitalUrea nitrogen [Mass/Vol]19.0 mg/dL High7.0-18.0[facility] HospitalUrea nitrogen/Creatinine [Mass ratio]21.8 mg/mgBrecksville Va / [facility]ille HospitalLaboratory - Hematology and Cell countson 56-66-0816Pyaiunru granulocytes/100 WBC (Bld)1.3 %High0.0-0.5 [facility] HospitalLeukocytes [#/volume] corrected for nucleated erythrocytes in Blood by Automated counon 00-58-9980GRJ corrected for nucl RBC Auto (Bld) [#/Vol]11.4 10 3/uLHigh4.0-11.0[facility] Lymphocytes Auto (Bld) [#/Vol]on 25-26-4829Gcyuajowbkl (Bld) [#/Vol]2.8 10 3/uL 1.2-3.8[facility] HospitalLymphocytes/100 WBC Auto (Bld)on 18-70-3403Rdicykknaxr/100 WBC (Bld)24.3 %20.5-60.0[facility]H Auto (RBC) [Entitic mass]on 13-40-1663UYN (RBC) [Entitic mass]36.5 pg High25.9-34.0[facility] HospitalMCHC Auto (RBC) [Mass/Vol]on 87-31-9697OQJL (RBC) [Mass/Vol]34.9 g/dL29.9-35.2FWayne HospitalMCV Auto (RBC) [Entitic vol]on 59-81-0580IZL (RBC) [Entitic vol]104.6 fL High80.0-94.0[facility] HospitalMonocytes Auto (Bld) [#/Vol]on 73-31-9373Fekvpdhpc (Bld) [#/Vol]1.0 10 3/uLHigh0.3-0.8[facility] HospitalMonocytes/100 WBC Auto (Bld)on 24-90-4138Ukbdpivwm/100 WBC (Bld) 8.5 %1.7-12.0[facility] HospitalNeutrophils Auto (Bld) [#/Vol]on 54-03-3222Fyziyuwvkvv (Bld) [#/Vol]7.3 10 3/uLHigh1.4-6.5FWayne HospitalNeutrophils/100 WBC Auto (Bld)on 10-48-7555Rrnlamwozuu/100 WBC (Bld)64.1 %43.0-75.0[facility] HospitalNo Panel Informationon 48-13-1483Vjjdjnbwcvy # (Auto)0.1 10 3/uL0.0-0.7FWayne HospitalImmature Granulocyte # (Auto)0.15 10 3/uLHigh0.00-0.03[facility] HospitalProstate Specific Antigen Screen0.48 ng/mL<=4.00[facility] CenterPlatelet mean volume Auto (Bld) [Entitic vol]on 11-21-2023 Platelet mean volume (Bld) [Entitic vol]10.6 fL9.5-13.5FWayne HospitalPlatelets Auto (Bld) [#/Vol]on 31-36-0541Pisuupvmh (Bld) [#/Vol] 180 10 3/tJ450-695OwvqpnpqqBrecksville Va / Crille HospitalRBC Auto (Bld) [#/Vol]on 90-24-6808VPX (Bld) [#/Vol]4.17 10 6/uLLow4.70-6.10[facility]amisburgerum or plasma albumin/globulin mass ratioon 69-91-5386Flhudob/Globulin [Mass ratio]1.1 {ratio}[facility] Miamisburgerum or plasma anion gap determinationon 67-52-2986Twrjd gap [Moles/Vol]9.7 mmol/LFWexner Medical Centererum or plasma total cholesterol/high density lipoprotein (HDL) cholesterol mass orin 03-51-2823Smmjfhhxrqa.total/Cholesterol in HDL [Mass ratio]2.7 {ratio}[facility] HospitalComment on above:3.3 - 4.4 LOW RISK4.4 - 7.1 AVERAGE RISK7.1 - 11.0 MODERATE RISK>11.0 HIGH RISKLaboratory - Hematology and Cell countson 68-74-1029PBM (Bld) [Velocity]2 mm/h0-15[facility] HospitalNo Panel Informationon 49-23-6843K-Reactive Protein, Quantitative0.8 mg/dL<0.9[facility] HospitalBasophils Auto (Bld) [#/Vol]Ordered By: Elliott Talley on 35-62-4149Ljakdhlwf (Bld) [#/Vol]0.0 10*3/uL0.0-0.2FWayne HospitalBasophils/100 WBC Auto (Bld) Ordered By: Elliott Talley on 70-46-7517Nrgdnhbyi/100 WBC (Bld)0.5 %. [facility] HospitalEosinophils Auto (Bld) [#/Vol]Ordered By: Elliott Talley on 57-92-1435Twqkvmmadat (Bld) [#/Vol]0.1 10*3/uL0.0-0.45 [facility] [facility] HospitalEosinophils/100 WBC Auto (Bld)Ordered By: Elliott Talley on 61-80-2153Terffdxoinw/100 WBC (Bld)0.8 %.[facility] HospitalErythrocyte distribution width Auto (RBC) [Ratio]Ordered By: Elliott Talley on 09-04-6301Qftkihuswis distribution width (RBC) [Ratio]15.2 %High12.0-14.8[facility] HospitalHematocrit Auto (Bld) [Volume fraction]Ordered By: Elliott Talley on 86-00-0432Clfuzmwzsx (Bld) [Volume fraction]47.9 %38.8-50.0[facility] HospitalHemoglobin [Mass/volume] in BloodOrdered By: Elliott Talley on 63-81-4992Zlzwjfqyvo (Bld) [Mass/Vol]16.1 g/dL13.0-17.0[facility] HospitalLeukocytes [#/volume] corrected for nucleated erythrocytes in Blood by Automated coun Ordered By: Elliott Talley on 52-65-6227KFH corrected for nucl RBC Auto (Bld) [#/Vol]7.6 10*3/uL4.1-10.5FWayne HospitalLymphocytes Auto (Bld) [#/Vol]Ordered By: Elliott Talley on 72-89-3421Rtehcjzckeh (Bld) [#/Vol]1.0 10*3/uL1.00-4.8[facility] [facility] HospitalLymphocytes/100 WBC Auto (Bld)Ordered By: Elliott Talley on 44-85-0303Fsrjgdauooq/100 WBC (Bld) 13.5 %.[facility] Auto (RBC) [Entitic mass]Ordered By: Elliott Talley on 58-08-5199XXV (RBC) [Entitic mass]34.6 pg27.5-35.2 [facility] [facility] HospitalMCHC Auto (RBC) [Mass/Vol]Ordered By: Elliott Talley on 76-27-2799BJQF (RBC) [Mass/Vol]33.7 g/dL32.5-35.6FWayne HospitalMCV Auto (RBC) [Entitic vol]Ordered By: Elliott Talley on 07-41-5611DET (RBC) [Entitic vol]102.8 iLMjwu75.5-101[facility] HospitalMonocytes Auto (Bld) [#/Vol]Ordered By: Elliott Talley on 32-35-6856Evfnupniy (Bld) [#/Vol]0.5 10*3/uL0.0-0.8[facility] HospitalMonocytes/100 WBC Auto (Bld)Ordered By: Elliott Talley on 87-01-7760Rctmwpeia/100 WBC (Bld)6.4 %.[facility] HospitalNeutrophils Auto (Bld) [#/Vol]Ordered By: Elliott Talley on 60-49-8966Pryaumfutsr (Bld) [#/Vol]6.0 10*3/uL1.8-7.7FWayne HospitalNeutrophils/100 WBC Auto (Bld)Ordered By: Elliott Talley on 67-73-0350Ndcxdhlnvop/100 WBC (Bld)78.8 %.[facility] Nucleated erythrocytes [Presence] in Blood by Automated countOrdered By: Elliott Talley on 87-04-8616Piwlijknh RBC Auto Ql (Bld)0.0 /100{WBC}0-0.5 [facility] HospitalPlatelet mean volume Auto (Bld) [Entitic vol] Ordered By: Elliott Talley on 59-87-8845Tknearlo mean volume (Bld) [Entitic vol]9.1 fL6.6-10.1FWayne HospitalPlatelets Auto (Bld) [#/Vol] Ordered By: Elliott Talley on 22-15-4327Jnoteymgv (Bld) [#/Vol]119 10*3/uL Hgn147-258WnwuuuwkaBrecksville Va / Crille HospitalRBC Auto (Bld) [#/Vol]Ordered By: Elliott Talley on 79-26-9008MHZ (Bld) [#/Vol]4.66 10*6/uL3.90-5.60[facility] [facility] HospitalWBC Auto (Bld) [#/Vol]Ordered By: Elliott Talley on 97-45-9438ZWM (Bld) [#/Vol]7.6 10*3/uL4.1-10.5FW[facility] Hospital Activated partial thromboplastin time (aPTT) in platelet poor plasma by coagulation aOrdered By: Elliott Talley on 58-76-5734cAQX Coag (PPP) [Time] 27.6 s25.1-36.5FWayne HospitalComment on above:A hematocrit value greater than 55% may lead to inaccurate results in coagulation testing. Patientshaving hematocrit values >55% require a special collection tube for coagulation studies. Please contact the laboratory at [phone] for redraw instructions.Alanine aminotransferase [Enzymatic activity/volume] in Serum or PlasmaOrdered By: Elliott Talley on 81-66-7151ADX [Catalytic activity/Vol] 33 U/L7-52[facility] HospitalAlbumin [Mass/volume] in Serum or Plasma by Bromocresol green (BCG) dye binding methoOrdered By: Elliott Talley on 67-80-5003Tclqxav BCG dye [Mass/Vol]3.5 g/dL3.5-5.7FWayne HospitalAlkaline phosphatase [Enzymatic activity/volume] in Serum or PlasmaOrdered By: Elliott Talley on 13-47-7125CEO [Catalytic activity/Vol]39 U/Y32-538TxqtimwzbBrecksville Va / [facility] HospitalAspartate aminotransferase [Enzymatic activity/volume] in Serum or PlasmaOrdered By: Elliott Talley on 05-46-4011EIX [Catalytic activity/Vol]19 U/L13-39 [facility] [facility] HospitalBilirubin.total [Mass/volume] in Serum or PlasmaOrdered By: Elliott Talley on 21-49-0163Basayaajf [Mass/Vol]1.3 mg/dL High0.3-1.0[facility] HospitalComment on above:Samples from patients who have taken Naproxen have shown spurious elevation in Total Bilirubin levels. A metabolite of Naproxen, O-desmethylnaproxen, has been shown to interfere with the Jayro-Henrik method for measuring Total Bilirubin. Calcium [Mass/volume] in Serum or PlasmaOrdered By: Elliott Talley on 81-84-0312Tpnqkvz [Mass/Vol]8.6 mg/dL8.6-10.3FWayne Hospital Carbon dioxide, total [Moles/volume] in Serum or PlasmaOrdered By: Elliott Talley on 64-20-2958DK8 [Moles/Vol]29.2 mmol/L21.0-31.0[facility] [facility] HospitalChloride [Moles/volume] in Serum or PlasmaOrdered By: Elliott Gutierrezut on 72-79-5306Bujeqgky [Moles/Vol]104 mmol/J27-411LtltpzoaiBrecksville Va / [facility] HospitalCreatinine [Mass/volume] in Serum or PlasmaOrdered By: Elliott Deanaspirus [facility] on 93-41-6415Fmpzziunks [Mass/Vol]1.05 mg/dL0.70-1.30[facility] HospitalGlobulin Calc (S) [Mass/Vol]Ordered By: Elliott Talley on 28-40-5070Malovdzz (S) [Mass/Vol]2.1 g/dLBrecksville Va / Crille HospitalGlucose [Mass/volume] in Serum or PlasmaOrdered By: Elliott Deanaspirus [facility] on 66-35-5427Kswpbbf [Mass/Vol]101 mg/oTHbeb86-567GtwhfghidBrecksville Va / [facility] HospitalComment on above:ADA recommended reference rangeRandom Glucose Reference Range is dependent on time and content of last meal. Glucose of more than 200 mg/dL in a nonstressed, ambulatory subject supports the diagnosisof Diabetes Mellitus.INR in Platelet poor plasma by Coagulation assayOrdered By: Elliott Talley on 66-28-9564QLP Coag (PPP) [Relative time]1.1 {INR}[facility] HospitalComment on above:INR Therapeutic Range A) Pre- [...] or Plasma Ordered By: Elliott Talley on 44-92-7445Tnmrtbqzk [Mass/Vol]2.0 mg/dL 1.9-2.7FWayne HospitalNo Panel InformationOrdered By: Elliott Talley on 51-60-5375Jhkoiupvb GFR (CKD-EPI)> 60.0 mL/MinBrecksville Va / Crille HospitalPharmacy Creatinine Clearance (Chem90.65[facility] [facility] HospitalPotassium [Moles/volume] in Serum or PlasmaOrdered By: Elliott Deanasp[facility] on 76-22-1776Xswuqaimi [Moles/Vol]4.4 mmol/L3.5-5.1FWayne HospitalProtein [Mass/volume] in Serum or PlasmaOrdered By: Elliott Talley on 70-86-0534Ehgcyot [Mass/Vol]5.6 g/dLLow6.4-8.9[facility] [facility] HospitalProthrombin time (PT)Ordered By: Elliott Talley on 03-26-2022CW Coag (PPP) [Time]13.1 sHigh9.0-12.9[facility] HospitalComment on above:A hematocrit value greater than 55% may lead to inaccurate results in coagulation testing. Patientshaving hematocrit values >55% require a special collection tube for coagulation studies. Please contact the laboratory at [phone] for redraw instructions.Random cortisol measurement Ordered By: Elliott Talley on 77-78-9102Pzycwpwr [Mass/Vol]9.4 ug/dL [facility] HospitalComment on above:[facility] Laboratory check pilot and method:BERTIN GraphScienceEL DXI, POLYCLONAL ANTIBODY CORTISOL ASSAY. Reference range: AM 6 - 24 ug/dl PM <10 ug/dlSerum or plasma albumin/globulin mass ratioOrdered By: Elliott Talley on 45-83-9229Knlizxc/Globulin [Mass ratio]1.7 {ratio}[facility]amisburgerum or plasma anion gap determinationOrdered By: Elliott Talley on 01-87-2929Hwheb gap [Moles/Vol] 9.2 mmol/L6.0-15.0[facility] Miamisburgodium [Moles/volume] in Serum or PlasmaOrdered By: Elliott Talley on 24-46-0778Xlfyoe [Moles/Vol] 138 mmol/V687-738NydinwshjBrecksville Va / Crille HospitalUrea nitrogen [Mass/volume] in Serum or PlasmaOrdered By: Elliott Talley on 95-66-8166Zhal nitrogen [Mass/Vol]15 mg/dL7-25[facility] [facility] HospitalActivated partial thromboplastin time (aPTT) in platelet poor plasma by coagulation aOrdered By: Hermes Velez on 88-65-1290vSSR Coag (PPP) [Time]25.5 s25.1-36.5FWayne HospitalComment on above:A hematocrit value greater than 55% may lead to inaccurate results in coagulation testing. Patientshaving hematocrit values >55% require a special collection tube for coagulation studies. Please contact the laboratory at [phone] for redraw instructions.Alanine aminotransferase [Enzymatic activity/volume] in Serum or PlasmaOrdered By: Hermes Velez on 09-26-4252DYJ [Catalytic activity/Vol]44 U/L7-52[facility] HospitalAlbumin [Mass/volume] in Serum or Plasma by Bromocresol green (BCG) dye binding methoOrdered By: Hermes Velez on 63-58-4269Svquyua BCG dye [Mass/Vol]4.2 g/dL3.5-5.7FWayne HospitalAlkaline phosphatase [Enzymatic activity/volume] in Serum or PlasmaOrdered By: Hermes Velez on 09-86-2072IQA [Catalytic activity/Vol]46 U/H55-603JygjqqlbuBrecksville Va / [facility]ille HospitalAspartate aminotransferase [Enzymatic activity/volume] in Serum or PlasmaOrdered By: Hermes Velez on 43-43-1015UWC [Catalytic activity/Vol]27 U/K60-53RjongikwjBrecksville Va / Crille HospitalBacterial blood cultureOrdered By: Hermes Velez on 08-30-2023 Bacteria identified Cx Nom (Bld)NO GROWTH 5 DAYSBrecksville Va / [facility]ille HospitalBasophils Auto (Bld) [#/Vol]Ordered By: Hermes Velez on 36-72-0379Ftkbskpmg (Bld) [#/Vol]0.1 10*3/uL0.0-0.2FWayne HospitalBasophils/100 WBC Auto (Bld)Ordered By: Hermes Velez on 35-97-0120Vbvmxgnmu/100 WBC (Bld)0.8 %. [facility] HospitalBilirubin Test strip Ql (U)Ordered By: Hermes Velez on 54-31-9321Wtuchhlok Ql (U)NegativeNegativeBrecksville Va / [facility]ille HospitalBilirubin.direct [Mass/volume] in Serum or PlasmaOrdered By: Hermes Velez on 30-28-3798Tqabigqsu.direct [Mass/Vol]0.20 mg/dLHigh0.03-0.18FWayne HospitalBilirubin.total [Mass/volume] in Serum or PlasmaOrdered By: Hermes Velez on 23-57-4945Lshymqpdu [Mass/Vol]0.9 mg/dL0.3-1.0[facility] [facility] HospitalCOVID CepheidOrdered By: Erin Suresh on 08-30-2023 SARS-CoV-2 (COVID-19) Ab IA QlNegativeNegativeBrecksville [facility] Comment on above:This is a duplicate CepheNarrative Xpert Xpress CoV-2/Flu/RSV Plus RNA by RT-PCR result to be used for statistical tracking purpose only.SARS-CoV-2 (COVID-19) RNA ROSIE+probe Ql (Unsp spec)[facility] HospitalCOVID- Detected/Not DetectedOrdered By: Elliott Talley on 81-41-0671SYKW-CoV-2 (COVID-19) RNA ROSIE+non-probe Ql (Nph)Not detectedNot DetecteFWayne HospitalComment on above:This is a duplicate RP2.1 COVID (PCR) result to be used for statistical tracking purpose only.Calcium [Mass/volume] in Serum or PlasmaOrdered By: Hermes Velez on 05-12-8277Srjwnin [Mass/Vol]9.3 mg/dL8.6-10.3 [facility] [facility] HospitalCarbon dioxide, total [Moles/volume] in Serum or PlasmaOrdered By: Hermes Velez on 26-57-0710WI9 [Moles/Vol]25.1 mmol/L 21.0-31.0[facility] [facility] HospitalChloride [Moles/volume] in Serum or PlasmaOrdered By: Hermes Velez on 60-08-5351Bqemxpsn [Moles/Vol]100 mmol/L98-107 [facility] HospitalColor Auto (U)Ordered By: Hermes Velez on 05-24-1133Xrbmy (U)YellowYellowBrecksville Va / [facility] HospitalCreatine kinase [Enzymatic activity/volume] in Serum or PlasmaOrdered By: Hermes Velez on 45-24-0404BJ [Catalytic activity/Vol]37 U/M40-130VogxlxkyqBrecksville Va / Crille HospitalCreatinine [Mass/volume] in Serum or PlasmaOrdered By: Hermes Velez on 97-60-6517Kwavmwjyxt [Mass/Vol]1.11 mg/dL0.70-1.30[facility] [facility] HospitalEosinophils Auto (Bld) [#/Vol]Ordered By: Hermes Velez on 08-30-2023 Eosinophils (Bld) [#/Vol]0.0 10*3/uL0.0-0.45[facility] Eosinophils/100 WBC Auto (Bld)Ordered By: Hermes Velez on 08-30-2023 Eosinophils/100 WBC (Bld)0.1 %.[facility] HospitalErythrocyte distribution width Auto (RBC) [Ratio]Ordered By: Hermes Velez on 08-30-2023 Erythrocyte distribution width (RBC) [Ratio]15.1 %12.0-14.8[facility] HospitalGlobulin Calc (S) [Mass/Vol]Ordered By: Hermes Velez on 08-30-2023 Globulin (S) [Mass/Vol]2.8 g/dLBrecksville Va / Crille HospitalGlucose [Mass/volume] in Serum or PlasmaOrdered By: Hermes Velez on 07-53-4169Kgoehtz [Mass/Vol]123 mg/zU10-057XautirwldBrecksville Va / [facility] HospitalComment on above:ADA recommended reference rangeRandom Glucose Reference Range is dependent on time and content of last meal. Glucose of more than 200 mg/dL in a nonstressed, ambulatory subject supports the diagnosisof Diabetes Mellitus.Hematocrit Auto (Bld) [Volume fraction]Ordered By: Hermes Velez on 30-98-0046Sbajdoznre (Bld) [Volume fraction]48.1 %38.8-50.0[facility] HospitalHemoglobin [Mass/volume] in BloodOrdered By: Hermes Velez on 77-33-6322Rmuvtfeopi (Bld) [Mass/Vol]16.2 g/dL13.0-17.0[facility] HospitalINR in Platelet poor plasma by Coagulation assayOrdered By: Hermes Velez on 62-10-8889PKK Coag (PPP) [Relative time]1.1 {INR}[facility] HospitalComment on above: INR Therapeutic Range A) [...] By: Hermes Velez on 08-30-2023 Ketones (U) [Mass/Vol]NegativeNegativeBrecksville Va / Crille HospitalLactate [Moles/volume] in Serum or PlasmaOrdered By: Tony Comer on 08-30-2023 Lactate [Moles/Vol]1.9 mmol/L0.5-2.2FWayne HospitalLeukocytes [#/volume] corrected for nucleated erythrocytes in Blood by Automated coun Ordered By: Hermes Velez on 33-77-9975AQD corrected for nucl RBC Auto (Bld) [#/Vol]14.5 10*3/uL4.1-10.5FWayne HospitalLipase [Enzymatic activity/volume] in Serum or PlasmaOrdered By: Hermes Velez on 10-24-2077Aubjxn [Catalytic activity/Vol]13.0 U/L11.0-82.0[facility] Lymphocytes Auto (Bld) [#/Vol]Ordered By: Hermes Velez on 97-82-8026Qrrebzfupim (Bld) [#/Vol]0.6 10*3/uL1.00-4.8[facility] HospitalLymphocytes/100 WBC Auto (Bld)Ordered By: Hermes Velez on 84-21-4258Hptrkeldvle/100 WBC (Bld)4.4 %.[facility]H Auto (RBC) [Entitic mass]Ordered By: Hermes Velez on 09-22-0968USI (RBC) [Entitic mass]34.5 pg27.5-35.2FWayne HospitalMCHC Auto (RBC) [Mass/Vol]Ordered By: Hermes Velez on 07-60-1488PBJU (RBC) [Mass/Vol]33.7 g/dL32.5-35.6FWayne HospitalMCV Auto (RBC) [Entitic vol]Ordered By: Hermes Velez on 28-48-7324GAK (RBC) [Entitic vol]102.3 fL83.5-101[facility] HospitalMonocyte distribution width [Entitic volume] in Blood by AutomatedOrdered By: Hermes Velez on 30-86-3033Nqzdmmay distribution width Auto (Bld) [Entitic vol]21.88 %High 0.00-20.00[facility] HospitalComment on above:For adults in ED, MDW > 20.0 may be associated with a higher risk of sepsis during the first 12 h rs of hospital admissionMonocytes Auto (Bld) [#/Vol]Ordered By: Hermes Velez on 10-61-9473Rwqxqqpex (Bld) [#/Vol]0.3 10*3/uL0.0-0.8[facility] HospitalMonocytes/100 WBC Auto (Bld)Ordered By: Hermes Velez on 08-30-2023 Monocytes/100 WBC (Bld)2.3 %.[facility] HospitalNatriuretic peptide B [Mass/Vol]Ordered By: Hermes Velez on 76-27-6839Zpvroxwlwea peptide B (Bld) [Mass/Vol]401.0 pg/mLHigh5-100[facility] HospitalNeutrophils Auto (Bld) [#/Vol]Ordered By: Hermes Velez on 98-84-4188Flgmarhdepk (Bld) [#/Vol]13.4 10*3/uL1.8-7.7FWayne HospitalNeutrophils/100 WBC Auto (Bld)Ordered By: Hermes Velez on 08-67-2428Xmakbttssfb/100 WBC (Bld)92.4 %. [facility] HospitalNitrite Test strip Ql (U)Ordered By: Hermes Velez on 29-51-8773Hgxqukx Ql (U)NegativeNegativeBrecksville [facility] / [facility] HospitalNo Panel InformationOrdered By: Hermes Velez on 40-27-7896Exrqofuvn ID (NA Multiplex Assay)Presumptive Coag Neg. StapWVUMedicine [facility] Bacterial ID (NA Multiplex Assay)Staphylococcus sp coag negAbnoTriHealth Good Samaritan HospitalEstimated GFR (CKD-EPI)> 60.0 mL/MinBrecksville Va / [facility]ille HospitalPharmacy Creatinine Clearance (Chem82.75[facility] HospitalNucleated erythrocytes [Presence] in Blood by Automated countOrdered By: Hermes Velez on 14-96-6120Obglwvexm RBC Auto Ql (Bld)0.0 /100{WBC}0-0.5FWayne HospitalPlatelet mean volume Auto (Bld) [Entitic vol]Ordered By: Hermes Velez on 38-86-3547Atidcsrx mean volume (Bld) [Entitic vol]8.7 fL6.6-10.1 [facility] HospitalPlatelets Auto (Bld) [#/Vol]Ordered By: Hermes Velez on 36-46-7529Kwlbhzhdh (Bld) [#/Vol]147 10*3/zU581-609WbifxsodkBrecksville Va / [facility]ille HospitalPotassium [Moles/volume] in Serum or PlasmaOrdered By: Hermes Velez on 12-60-3235Velfsfqiv [Moles/Vol]3.3 mmol/L3.5-5.1[facility] CenterProtein Auto test strip (U) [Mass/Vol]Ordered By: Hermes Velez on 21-98-1519Mrjddxv (U) [Mass/Vol]NegativeNegativeBrecksville Va / [facility] HospitalProtein [Mass/volume] in Serum or PlasmaOrdered By: Hermes Velez on 36-41-5508Dcstchy [Mass/Vol]7.0 g/dL6.4-8.9[facility] Prothrombin time (PT)Ordered By: Hermes Velez on 83-77-8031KP Coag (PPP) [Time] 12.8 s9.0-12.9[facility] HospitalComment on above:A hematocrit value greater than 55% may lead to inaccurate results in coagulation testing. Patientshaving hematocrit values >55% require a special collection tube for coagulation studies. Please contact the laboratory at [phone] for redraw instructions.RBC Auto (Bld) [#/Vol]Ordered By: Hermes Velez on 07-03-2588DZI (Bld) [#/Vol]4.70 10*6/uL3.90-5.60[facility] HospitalRespiratory pathogens DNA and RNA panel - Nasopharynx by ROSEI with non-probe detectionOrdered By: Elliott Talley on 82-17-8584Nxrhqeipmex pathogens DNA and RNA panel ROSIE+non-probe (Nph)[facility]amisburgerum or plasma albumin/globulin mass ratioOrdered By: Hermes Velez on 57-81-4472Ygcoxqe/Globulin [Mass ratio]1.5 {ratio}[facility]amisburgerum or plasma anion gap determinationOrdered By: Hermes Velez on 51-82-3801Usihs gap [Moles/Vol]14.2 mmol/L6.0-15.0[facility]amisburgerum or plasma non- glucuronidated bilirubin measurement (mass/volume)Ordered By: Hermes Velez on 99-72-0436Jespocqiq.indirect [Mass/Vol]0.7 mg/dLKettering Health Miamisburgodium [Moles/volume] in Serum or PlasmaOrdered By: Hermes Velez on 77-14-5158Lotcma [Moles/Vol]136 mmol/G375-093NkcigmkuoBrecksville [facility] Specific gravity Auto test strip (U) [Rel density]Ordered By: Hermes Velez on 80-24-2446Kwcblkak gravity (U) [Rel density]1.0161.001-1.030[facility] HospitalTroponin I.cardiac [Mass/volume] in Serum or Plasma by Detection limit <= 0.01 ng/Ordered By: Erin Suresh on 95-53-9789Yxuqpjhb I.cardiac DL <= 0.01 ng/mL [Mass/Vol]16.9 pg/mL0.0-20.0[facility] HospitalUrea nitrogen [Mass/volume] in Serum or PlasmaOrdered By: Hermes Velez on 08-30-2023 Urea nitrogen [Mass/Vol]21 mg/dL7-25[facility] HospitalUrine clarity by refractometry automatedOrdered By: Hermes Velez on 32-18-8116Cplhkss Refractometry automated (U)ClearCleCleveland ClinicUrine glucose measurement by automated test strip (mass/volume)Ordered By: Hermes Velez on 08-76-0582Vwwndud Auto test strip (U) [Mass/Vol]Normal mg/dLNoTriHealth Good Samaritan HospitalUrine hemoglobin detection by automated test stripOrdered By: Hermes Velez on 71-33-9113Rhmiwuixgp Auto test strip Ql (U)NegativeNegative [facility] HospitalUrine leukocyte esterase detection by automated test stripOrdered By: Hermes Velez on 40-74-8614Jlqjdctnn esterase Auto test strip Ql (U)NegativeNegativeBrecksville Va / Crille HospitalUrobilinogen Auto test strip (U) [Mass/Vol]Ordered By: Hermes Velez on 48-80-8651Tywgeljusqvk (U) [Mass/Vol]Normal mg/dLNoTriHealth Good Samaritan HospitalWBC Auto (Bld) [#/Vol]Ordered By: Hermes Velez on 19-31-0150MAY (Bld) [#/Vol]14.5 10*3/uL 4.1-10.5FWayne HospitalpH Auto test strip (U)Ordered By: Hermes Velez on 03-06-7069eM (U)5.5 [pH]5.0-9.0[facility] HospitalECG [address] 86-50-2705PkhkprmxpgRegency Hospital Cleveland West Work Phone: Sinus with PVC.sCPKettering Health Dayton Work Phone: Carbon dioxide, total [Moles/volume] in Serum or PlasmaOrdered By: Antonio Steele on 38-12-0264PW4 [Moles/Vol]26.4 mmol/L 21.0-31.0[facility] HospitalChloride [Moles/volume] in Serum or PlasmaOrdered By: Antonio Steele on 02-17-4955Acuqftcn [Moles/Vol]102 mmol/L 98-107[facility] HospitalPotassium [Moles/volume] in Serum or PlasmaOrdered By: Antonio Steele on 73-91-0926Xrggusrhj [Moles/Vol]4.1 mmol/L3.5-5.1FWexner Medical Centererum or plasma anion gap determinationOrdered By: Antonio Steele on 64-32-5202Hmrpd gap [Moles/Vol] 13.7 mmol/L6.0-15.0[facility] Miamisburgodium [Moles/volume] in Serum or PlasmaOrdered By: Antonio Steele on 84-95-1936Qzhmil [Moles/Vol]138 mmol/W145-177AumnvrtstBrecksville Va / Crille HospitalECG [address] 75-99-1117Qknobm fibrillation with controlled rateCPKettering Health Dayton Work Phone: CT biopsyon 98-05-3011NW biopsy5.3 U/L1.5-8.1FWayne HospitalComment on above:This test was developed and its performance characteristics determined by [employer] [facility] Medicine [place] ([facility]). It has not been cleared or approved by the FDA. [facility] is regulated under CLIA as qualified to perform high-complexity testing. Thistest is used for clinical purposes. It should not be regarded as investigational or for research.Laboratory - Chemistry and Chemistry - challengeon [id number] [Catalytic activity/Vol]52 U/L51-298 [facility] HospitalCobalamin (Vitamin B12) [Mass/Vol]685 pg/mL 232-1245[facility]ille HospitalUrate [Mass/Vol]7.2 mg/dL4.0-8.1 [facility] HospitalLaboratory - Hematology and Cell countson 93-06-8269HSI (Bld) [Velocity]15 mm/h0-15[facility] HospitalNo Panel Informationon 81-79-4710D-Reactive Protein, Quantitative0.8 mg/dL<0.9 [facility]amisburgerum or plasma calcidiol measurement (mass/volume)on 488579-eluhxdnhubtghw D3 [Mass/Vol]21.4 ng/mL31.0-80.0 [facility] Cr[facility] HospitalComment on above:Classification of 25 [place] Vitamin D status: Deficiency/Insufficiency: < or = 30 ng/ml.Sufficiency/Optimal Levels: 31-80 ng/mLToxicity: > 100 ng/mL. Test performed by chemiluminescent immunoassay.BD DXA - AXIAL SKELETONon [id number] DXA - AXIAL SKELETON* * *Final Report* [...] years, Gender: Male SCANNER INFORMATION: DXA Model: Enjoi Date Scanned: 06/28/2023 12:56 PM CLINICAL HISTORY: [...] had a previous bone density in the [facility] or the previous bone density was performed on a different DXA machine (new, updated model or different location) within the [facility]. VERTEBRAL FRACTURE ASSESSMENT Not performed. TRABECULAR [...] FOR MORE INFORMATION ABOUT DIAGNOSIS AND TREATMENT: [facility] for Osteoporosis and Metabolic Bone Disease:? www.ccf.org/arthritis/osteo National Osteoporosis Foundation:? www.nof.org International Society of Clinical Densitometry www.iscd.org Director Ship: RAQUEL Transcribe Date/Time: Jun 28 2023 1:37P Dictated by : KEREN BRAVO DO This examination was interpreted and the report reviewed and electronically signed by: KEREN BRAVO DO on Jun 28 2023 1:47PM EST [id number] Health System [facility] DXA - FOREARM SKELETONon [id number] DXA - FOREARM SKELETON* * *Final Report* [...] years, Gender: Male SCANNER INFORMATION: DXA Model: Enjoi Date Scanned: 06/28/2023 12:56 PM CLINICAL HISTORY: [...] had a previous bone density in the [facility] or the previous bone density was performed on a different DXA machine (new, updated model or different location) within the [facility]. VERTEBRAL FRACTURE ASSESSMENT Not performed. TRABECULAR [...] FOR MORE INFORMATION ABOUT DIAGNOSIS AND TREATMENT: [facility] for Osteoporosis and Metabolic Bone Disease:? www.ccf.org/arthritis/osteo National Osteoporosis Foundation:? www.nof.org International Society of Clinical Densitometry www.iscd.org Director Ship: RAQUEL Transcribe Date/Time: Jun 28 2023 1:37P Dictated by : KEREN BRAVO DO This examination was interpreted and the report reviewed and electronically signed by: KEREN BRAVO DO on Jun 28 2023 1:47PM EST [id number] Memorial HospitalDXA Radius and Ulna [Mass/Area] Bone densityon 97-93-0512Pdmztyliw ClinicDXA Skeletal system.axial Views for bone densityon 46-22-5316Gzwgpttfu ClinicBASIC METABOLIC PANLon 66-57-8012Mgaqq gap [Moles/Vol]10 mmol/LNormal5-15Children[facility] Hospital of ColumbusComment on above: Performed By: #### CBCA, BMP, 42012-8 #### [facility] ([id number]) [address], [address] [place] [id number] [Mass/Vol]9.3 mg/dLNormal8.5-10.5PHocking Valley Community HospitalComment on above:Performed By: #### RAIMUNDO FULLER, 87554-3 #### [facility] ([id number]) [address], [address] [place] [address]Olljjsge [Moles/Vol]102 mmol/QRebcwb41-628CtfWdpbvdHunt Regional Medical Center At GreenvilleComment on above:Performed By: #### RAIMUNDO FULLER, #### [facility] ([id number]) [address], [address] [place] [id number] [Moles/Vol]25 mmol/GOrtaat59-92VsgNymztpHocking Valley Community Hospital Comment on above:Performed By: #### RAIMUNDO FULLER, #### [facility] ([id number]) [address], [address] [place] [id number] [Mass/Vol]0.95 mg/dLNormal0.60-1.30ProHunt Regional Medical Center At GreenvilleComment on above:Result Comment: METHOD TRACEABLE TO IDMS STANDARD Performed By: #### RAIMUNDO FULLER, 05738-7 #### [facility] ([id number]) [address], [address] [place] [address]DGR/1.73 sq M.predicted among non-blacks MDRD (S/P/Bld) [Vol rate/Area]90 mL/min/{1.73_m2}Normal>59ProHunt Regional Medical Center At GreenvilleComment on above:Result Comment: Reported eGFR is based on the CKD-EPI 2020 equation that does not use a race coefficient.Performed By: #### RAIMUNDO FULLER, 62468-1 #### [facility] ([id number]) [address], [address] [place] [address]Nehlffe [Mass/Vol]117 mg/wAIckc88-18VwaNvaxdbHunt Regional Medical Center At Greenville Comment on above:Performed By: #### RAIMUNDO FULLER, #### [facility] ([id number]) [address], [address] [place] [id number] [Moles/Vol]3.9 mmol/LNormal3.5-5.0ProHunt Regional Medical Center At GreenvilleComment on above:Performed By: #### RAIMUNDO FULLER, #### [facility] ([id number]) [address], [address] [place], [place] [address]Melfdn [Moles/Vol]137 mmol/JGtobvq817-673VnjRuqsqz [facility]remont HospitalComment on above:Performed By: #### RAIMUNDO FULLER, #### [facility] ([id number]) [address], [address] [place] [address]Ricx nitrogen [Mass/Vol]20 mg/dLNormal5-27ProHunt Regional Medical Center At GreenvilleComment on above:Performed By: #### RAIMUNDO FULLER, #### [facility] ([id number]) [address], [address] [place], [place] [id number] AND AUTO DIFFon 50-38-0165EOQRLLSI BASOPHIL0.1 X10E9/LNormal 0.0-0.2PHocking Valley Community HospitalComment on above:Performed By: #### RAIMUNDO FULLER, #### [facility] ([id number]) [address], [address] [place] [address]MGASWQCW NEUTROPHIL5.9 X10E9/LNormal1.5-6.6ProHunt Regional Medical Center At GreenvilleComment on above:Performed By: #### RAIMUNDO FULLER, #### [facility] ([id number]) [address], [address] [place] [address]Fmmpbyyix/100 WBC (Bld)0.6 %NormalChildren's Hospital of Columbus Comment on above:Performed By: #### CBCAtul BMP, #### [facility] ([id number]) [address], [address] [place], [place] [address]Mvnzyuggndt (Bld) [#/Vol]0.1 10*3/uLNormal0.0-0.4ProHunt Regional Medical Center At GreenvilleComment on above:Performed By: #### CBCA, BMP, #### [facility] ([id number]) [address], [address] [place], [place] [address]Iizbhvjwnqp/100 WBC (Bld)1.0 %[facility] Comment on above:Performed By: #### CBCRAIMUNDO Pollard, #### [facility] ([id number]) [address], [address] [place], [place] [address]Ouhewdpgnst distribution width (RBC) [Ratio]14.4 %Normal 11.5-15.0Children's Hospital of ColumbusComment on above:Performed By: #### CBCAtul, RAIMUNDO, #### [facility] ([id number]) [address], [address] [place], [place] [address]Szoixnbovc (Bld) [Volume fraction]46.6 %Wnoqec00-75ObvQewdvtHunt Regional Medical Center At GreenvilleComment on above:Performed By: #### CBCA, BMP, #### [facility] ([id number]) [address], [address] [place], [place] [address]Kijczrzzds (Bld) [Mass/Vol]15.6 g/gAEgfxxo43.0-17.0Children[facility] Hospital of ColumbusComment on above:Performed By: #### CBCA, BMP, #### [facility] ([id number]) [address], [address] [place], [place] [address]Pamkbedukyg (Bld) [#/Vol]2.2 10*3/uLNormal1.0-3.5PHocking Valley Community HospitalComment on above:Performed By: #### RAIMUNDO FULLER, #### [facility] ([id number]) [address], [address] [place], [place] [address]Cnhzpwrvpgc/100 WBC (Bld)25.1 %NormalProHunt Regional Medical Center At Greenville Comment on above:Performed By: #### RAIMUNDO FULLER, #### [facility] ([id number]) [address], [address] [place], [place] [address]ULJ (RBC) [Entitic mass]33.5 waYmcdlb78-37UkcBwmbydChildren's Hospital of ColumbusComment on above:Performed By: #### RAIMUNDO FULLER, #### [facility] ([id number]) [address], [address] [place], [place] [address]FFMU (RBC) [Mass/Vol]33.4 g/xNEtafbm73-14KvrDpxoofHunt Regional Medical Center At GreenvilleComment on above:Performed By: #### RAIMUNDO FULLER, #### [facility] ([id number]) [address], [address] [place], [place] [address]RPY (RBC) [Entitic vol]100 cCFrthuj40-003WphRyqrih [facility]remont HospitalComment on above:Performed By: #### CBCRAIMUNDO Pollard, #### [facility] ([id number]) [address], [address] [place], [place] [address]Wemquuymx (Bld) [#/Vol]0.7 10*3/uLNormal0-0.9Children[facility] Hospital of ColumbusComment on above:Performed By: #### RAIMUNDO FULLER, #### [facility] ([id number]) [address], [address] [place], [place] [address]Nsdhqkwwx/100 WBC (Bld)7.5 %NormalChildren's Hospital of Columbus Comment on above:Performed By: #### RAIMUNDO FULLER, #### [facility] ([id number]) [address], [address] [place], [place] [address]Pkzzjmpwhtz/100 WBC (Bld)65.8 %NormalChildren's Hospital of Columbus Comment on above:Performed By: #### RAIMUNDO FULLER, #### [facility] ([id number]) [address], [address] [place], [place] [address]Vfzedfpv mean volume (Bld) [Entitic vol]9.3 fLNormal7-12 [facility] Hospital of ColumbusComment on above:Performed By: #### RAIMUNDO FULLER, #### [facility] ([id number]) [address], [address] [place], [place] [address]Nwllhqmax (Bld) [#/Vol]216 10*3/sYYzgzds842-691VwoZsyqqj [facility]ont HospitalComment on above:Performed By: #### RAIMUNDO FULLER, #### [facility] ([id number]) [address], [address] [place], [place] [id number] COUNT4.65 X10E12/LNormal4.10-5.70[facility] Comment on above:Performed By: #### RAIMUNDO FULLER, #### [facility] ([id number]) [address], [address] [place] [id number] (Bld) [#/Vol]8.9 10*3/uLNormal4.0-11.0Children[facility] Hospital of ColumbusComment on above:Performed By: #### RAIMUNDO FULLER, #### [facility] ([id number]) [address], [address] [place], [place] [address]CGMEWWBEDfv 13-56-2993Qgbbzcchv [Mass/Vol]1.5 mg/dLLow1.8-2.6 ProMnoland hospital montgomerya [facility] Amigos Medical CenterComment on above:Performed By: #### CMP, PINR, 99686- 9, 98467-6, CBCA, 24579-9, 39734-1 #### [facility] ([id number]) [address] [place] [address], FIRST FLOOR [place], [place] [address]UJTF EKGon 70-89-4915YpfNrovpyGrant HospitalBasophils Auto (Bld) [#/Vol]Ordered By: Melinda Verduzco on 19-52-6513Lnfktobmg (Bld) [#/Vol] 0.1 10*3/uL0.0-0.2FWayne HospitalBasophils/100 WBC Auto (Bld) Ordered By: Melinda Verduzco on 57-34-4725Mnlxhjzmc/100 WBC (Bld)0.6 %.[facility] Crille HospitalC reactive protein [Mass/volume] in Serum or Plasma Ordered By: Melinda Verduzco on 45-77-5174PLR [Mass/Vol]0.5 mg/dL0.0-0.5 [facility] Crille HospitalEosinophils Auto (Bld) [#/Vol]Ordered By: Melinda Verduzco on 41-09-5133Imrfiudzhuj (Bld) [#/Vol]0.1 10*3/uL0.0-0.45 [facility] HospitalEosinophils/100 WBC Auto (Bld)Ordered By: Melinda Verduzco on 86-80-8262Doiprabnopy/100 WBC (Bld)0.4 %.[facility] Crille HospitalErythrocyte distribution width Auto (RBC) [Ratio]Ordered By: Melinda Verduzco on 65-26-5610Rtnotiwtgsr distribution width (RBC) [Ratio]14.5 % 12.0-14.8[facility] Crille HospitalErythrocyte sedimentation rate by Photometric methodOrdered By: Melinda Verduzco on 62-79-5801MRD Photometric method (Bld) [Velocity]16 mm/hr0-19[facility] Crille HospitalFibrin D- dimer [Presence] in Platelet poor plasma by Latex agglutinationOrdered By: Melinda Verduzco on 39-26-0802Wcrxrs D-dimer LA Ql (PPP)213 ng/mL0-243B[facility] / Crille HospitalComment on above:The reference range for D-dimer [...] coagulation studies. Please contact the laboratory at [phone] for redraw instructions.Hematocrit Auto (Bld) [Volume fraction]Ordered By: Melinda Verduzco on 89-03-6668Djoldmcwsz (Bld) [Volume fraction]47.1 %38.8-50.0[facility] Crille HospitalHemoglobin [Mass/volume] in BloodOrdered By: Melinda Verduzco on 26-23-1812Lieriuhftv (Bld) [Mass/Vol]15.6 g/dL13.0-17.0[facility] Crille HospitalLeukocytes [#/volume] corrected for nucleated erythrocytes in Blood by Automated counOrdered By: Melinda Verduzco on 81-19-6131UOW corrected for nucl RBC Auto (Bld) [#/Vol]15.1 10*3/uL4.1-10.5FWayne HospitalLymphocytes Auto (Bld) [#/Vol]Ordered By: Melinda Verduzco on 05-21-2023 Lymphocytes (Bld) [#/Vol]2.1 10*3/uL1.00-4.8[facility] Lymphocytes/100 WBC Auto (Bld)Ordered By: Melinda Verduzco on 05-21-2023 Lymphocytes/100 WBC (Bld)13.9 %.[facility] Crille HospitalMCH Auto (RBC) [Entitic mass]Ordered By: Melinda Verduzco on 69-98-0143RMS (RBC) [Entitic mass] 33.3 pg27.5-35.2FWayne HospitalMCHC Auto (RBC) [Mass/Vol] Ordered By: Melinda Verduzco on 47-48-4154VUYL (RBC) [Mass/Vol]33.1 g/dL 32.5-35.6FWayne HospitalMCV Auto (RBC) [Entitic vol]Ordered By: Melinda Verduzco on 08-83-3083LAP (RBC) [Entitic vol]100.7 fL83.5-101 [facility] Cr[facility] HospitalMonocytes Auto (Bld) [#/Vol]Ordered By: Melinda Verduzco on 04-26-2125Esygpypkd (Bld) [#/Vol]1.0 10*3/uL0.0-0.8[facility] Crille HospitalMonocytes/100 WBC Auto (Bld)Ordered By: Melinda Verduzco on 22-61-0766Agdfkaeut/100 WBC (Bld)6.8 %.[facility] Neutrophils Auto (Bld) [#/Vol]Ordered By: Melinda Verduzco on 05-21-2023 Neutrophils (Bld) [#/Vol]11.8 10*3/uL1.8-7.7FWayne Hospital Neutrophils/100 WBC Auto (Bld)Ordered By: Melinda Verduzco on 05-21-2023 Neutrophils/100 WBC (Bld)78.3 %.[facility] Crille HospitalNucleated erythrocytes [Presence] in Blood by Automated countOrdered By: Melinda Verduzco on 83-69-9066Ghjrifgmf RBC Auto Ql (Bld)0.1 /100{WBC}0-0.5FWayne HospitalPlatelet mean volume Auto (Bld) [Entitic vol]Ordered By: Melinda Verduzco on 66-69-6909Codvxygk mean volume (Bld) [Entitic vol]8.7 fL6.6-10.1 [facility] Crille HospitalPlatelets Auto (Bld) [#/Vol]Ordered By: Melinda Verduzco on 45-30-3116Ykobzauoa (Bld) [#/Vol]228 10*3/xN988-237BtxdmbyoaBrecksville Va / Crille HospitalRBC Auto (Bld) [#/Vol]Ordered By: Melinda Verduzco on 89-28-5051TZU (Bld) [#/Vol]4.68 10*6/uL3.90-5.60[facility] Crille HospitalWBC Auto (Bld) [#/Vol]Ordered By: Melinda Verduzco on 03-09-0972MOD (Bld) [#/Vol]15.1 10*3/uL4.1-10.5FWayne HospitalCBC AND AUTO DIFFon 37-51-7489WPFHYIWP BASOPHIL0.1 X10E9/LNormal0.0-0.2PHocking Valley Community Hospital Comment on above:Performed By: #### CMP, PINR, 76540-2, 67025-3, CBCA, 73927-6, 97399-1 #### [facility] ([id number]) [address] [place] [address]ZDYYNQAS NAGVUSJAFE40.9 X10E9/LHigh1.5-6.6Children's Hospital of ColumbusComment on above:Performed By: #### CMP, PINR, 23899-2, 61612-4, CBCA, 25590-0, 21119-4 #### [facility] ([id number]) [address] [place] [address]Cerwoiril/100 WBC (Bld)0.4 %NormalChildren's Hospital of Columbus Comment on above:Performed By: #### CMP, PINR, 89634-6, 80712-5, CBCA, 11947-1, 51439-7 #### [facility] ([id number]) [address] [place] [address]Mvbtcifhvnx (Bld) [#/Vol]0.0 10*3/uLNormal0.0-0.4Children[facility] Hospital of ColumbusComment on above:Performed By: #### CMP, PINR, 87522-9, 88715-1, CBCA, 61541-7, 20368-8 #### [facility] ([id number]) [address] [place] [address]Ubplmojmqdb/100 WBC (Bld)0.3 %NormalProHunt Regional Medical Center At Greenville Comment on above:Performed By: #### CMP, PINR, 77772-3, 00558-3, CBCA, 85691-0, 87719-2 #### [facility] ([id number]) [address] [place] [address]Gntuwclnqto distribution width (RBC) [Ratio]14.2 %Normal 11.5-15.0ProHunt Regional Medical Center At GreenvilleComment on above:Performed By: #### CMP, PINR, 40208-6, 39734-0, CBCA, 00887-7, 92054-5 #### [facility] ([id number]) [address] [place] [address]Epnszrjogn (Bld) [Volume fraction]49.6 %Kebi09-22KyzSzwpdyHunt Regional Medical Center At GreenvilleComment on above:Performed By: #### CMP, PINR, 55158-6, 80246-4, CBCA, 46933-4, 52774-3 #### [facility] ([id number]) [address] [place] [address]Grifdazxow (Bld) [Mass/Vol]16.7 g/rFByaxhb92.0-17.0ProHunt Regional Medical Center At GreenvilleComment on above:Performed By: #### CMP, PINR, 14863-3, 92216-9, CBCA, 98093-0, 72749-8 #### [facility] ([id number]) [address] [place] [address]966Pmbluclgyqq (Bld) [#/Vol]1.6 10*3/uLNormal1.0-3.5PRiverside Medical Centerica [facility] Amigos Medical CenterComment on above:Performed By: #### CMP, PINR, 51216-3, 74255-7, CBCA, 95672-3, 55736-7 #### [facility] ([id number]) [address] [place] [address]80[address]Vxtjtabscbp/100 WBC (Bld)11.9 %NormalChildren's Hospital of Columbus Comment on above:Performed By: #### CMP, PINR, 94048-9, 79879-0, CBCA, 97579-8, 76788-7 #### [facility] ([id number]) [address] [place] [address] 005[address]GES (RBC) [Entitic mass]34.1 egXdrp81-83DfbKrvqfaChildren's Hospital of ColumbusComment on above:Performed By: #### CMP, PINR, 39314-0, 76036-9, CBCA, 29975-5, 34088-8 #### [facility] ([id number]) [address] [place] [address]EDZA (RBC) [Mass/Vol]33.7 g/qNCzvqmq95-38HraHanfklHunt Regional Medical Center At GreenvilleComment on above:Performed By: #### CMP, PINR, 61906-9, 04491-7, CBCA, 27005-9, 24782-4 #### [facility] ([id number]) [address] [place] [address]DOX (RBC) [Entitic vol]101 cVWhvl10-059ChiQuqtnjChildren's Hospital of ColumbusComment on above:Performed By: #### CMP, PINR, 70786-3, 88883-8, CBCA, 44041-6, 97160-0 #### [facility] ([id number]) [address] [place] [address]Agggctfkf (Bld) [#/Vol]0.5 10*3/uLNormal0-0.9Children's Hospital of ColumbusComment on above:Performed By: #### CMP, PINR, 31457-5, 34648-0, CBCA, 83955-1, 19576-4 #### [facility] ([id number]) [address] [place] [address]05[address]Wmfyqvzzi/100 WBC (Bld)3.7 %[facility] Comment on above:Performed By: #### CMP, PINR, 21211-4, 00635-0, CBCA, 81462-3, 35488-4 #### [facility] ([id number]) [address] [place] [address]Jamfgcrsrvl/100 WBC (Bld)83.7 %[facility] Comment on above:Performed By: #### CMP, PINR, 43592-7, 50223-1, CBCA, 91647-3, 42049-0 #### [facility] ([id number]) [address] [place] [address]Eafqzaog mean volume (Bld) [Entitic vol]8.5 fLNormal7-12 [facility] Hospital of ColumbusComment on above:Performed By: #### CMP, PINR, 09244- 9, 56521-4, CBCA, 10682-4, 50922-7 #### [facility] ([id number]) [address] [place] [address] 11385Xfvwjlgav (Bld) [#/Vol]264 10*3/bKTzrwxg006-773FmmBtywtvChildren's Hospital of ColumbusComment on above:Performed By: #### CMP, PINR, 93571-6, 92340-5, CBCA, 42886-1, 62275-3 #### [facility] ([id number]) [address] [place] [address] 74693XPI COUNT4.89 X10E12/LNormal4.10-5.70[facility] Comment on above:Performed By: #### CMP, PINR, 67452-2, 66777-6, CBCA, 73396-7, 23826-9 #### [facility] ([id number]) [address] [place] [address] 400[address]TNQ (Bld) [#/Vol]13.0 10*3/uLHigh4.0-11.0ProHunt Regional Medical Center At GreenvilleComment on above:Performed By: #### CMP, PINR, 66568-9, 19489-4, CBCA, 59824-6, 86659-5 #### [facility] ([id number]) [address] [place] [address] 52446FYMAQNWFFFQTR METABOLIC PANELon 47-66-6332Svvcegp [Mass/Vol]4.4 g/dLNormal3.2-5.3ProMedLa Palma Intercommunity HospitalComment on above:Performed By: #### CMP, PINR, 81812-5, 28243-3, CBCA, 07034-0, 44353-1 #### [facility] ([id number]) [address] [place] [address] [id number] [Catalytic activity/Vol]69 U/JHpjeoj35-686KkpCcejerHunt Regional Medical Center At GreenvilleComment on above:Performed By: #### CMP, PINR, 99745-6, 57098-1, CBCA, 73677-7, 50719-2 #### [facility] ([id number]) [address] [place] [address] 19507OGX [Catalytic activity/Vol]31 U/LNormal0-40ProHunt Regional Medical Center At GreenvilleComment on above:Performed By: #### CMP, PINR, 29776-1, 43190-1, CBCA, 73891-9, 29672-9 #### [facility] ([id number]) [address] [place] [address] 87258Vrnct gap [Moles/Vol]9 mmol/LNormal5-15ProHunt Regional Medical Center At GreenvilleComment on above:Performed By: #### CMP, PINR, 13287-1, 63815-5, CBCA, 85163-6, 87513-8 #### [facility] ([id number]) [address] [place] [address] 74299MJI [Catalytic activity/Vol]26 U/LNormal0-41ProHunt Regional Medical Center At GreenvilleComment on above:Performed By: #### CMP, PINR, 23576-1, 92319-1, CBCA, 55387-9, 90599-7 #### [facility] ([id number]) [address] [place] [address], [place] [address]Jnefklbza [Mass/Vol]0.8 mg/dLNormal0.3-1.2PHocking Valley Community HospitalComment on above:Performed By: #### CMP, PINR, 45145-9, 01924-2, CBCA, 29966-8, 06690-7 #### [facility] ([id number]) [address] [place] [address] 85037Yxostna [Mass/Vol]9.6 mg/dLNormal8.5-10.5PHocking Valley Community HospitalComment on above:Performed By: #### CMP, PINR, 40628-4, 11129-3, CBCA, 84468-5, 59936-1 #### [facility] ([id number]) [address] [place] [address], [place] [id number] [Moles/Vol]99 mmol/UHrbdwc07-607OntBggfqmHunt Regional Medical Center At GreenvilleComment on above:Performed By: #### CMP, PINR, 33010-8, 84202-2, CBCA, 80015-6, 02962-2 #### [facility] ([id number]) [address] [place] [address], [place] [address]KY5 [Moles/Vol]24 mmol/ORcbckn32-67JdvZeqbqgHocking Valley Community Hospital Comment on above:Performed By: #### CMP, PINR, 85272-0, 43996-6, CBCA, 65422-3, 33790-6 #### [facility] ([id number]) [address] [place] [address] 51044Mxlueqmvmg [Mass/Vol]1.26 mg/dLHigh0.70-1.20ProHunt Regional Medical Center At GreenvilleComment on above:Result Comment: METHOD TRACEABLE TO IDMS STANDARD Performed By: #### CMP, PINR, 24100-5, 46830-2, CBCA, 53226-8, 03529-0 #### [facility] ([id number]) [address] [place] [address] 94837CHS/1.73 sq M.predicted among non-blacks MDRD (S/P/Bld) [Vol rate/Area]64 mL/min/{1.73_m2}Normal>59ProHunt Regional Medical Center At GreenvilleComment on above:Result Comment: Reported eGFR is based on the CKD-EPI 2020 equation that does not use a race coefficient.Performed By: #### CMP, PINR, 22377-5, 69375-4, CBCA, 44282-1, 32005-4 #### [facility] ([id number]) [address] [place] [address] 70148Wbmfrai [Mass/Vol]196 mg/uKAzlm64-23YttXnyllpChildren's Hospital of Columbus Comment on above:Performed By: #### CMP, PINR, 32054-2, 43320-6, CBCA, 04410-8, 91238-4 #### [facility] ([id number]) [address] [place] [address] 37193Kumckwtgv [Moles/Vol]3.8 mmol/LNormal3.5-5.0ProHunt Regional Medical Center At GreenvilleComment on above:Performed By: #### CMP, PINR, 33171-2, 49892-7, CBCA, 54511-0, 53648-1 #### [facility] ([id number]) [address] [place] [address] 25308Hkrsixw [Mass/Vol]7.7 g/dLNormal6.0-8.0Children's Hospital of ColumbusComment on above:Performed By: #### CMP, PINR, 56577-8, 17083-6, CBCA, 42101-6, 92379-8 #### [facility] ([id number]) [address] [place] [address] 81135Qqkiil [Moles/Vol]132 mmol/ITgm989-908NmbKwaaeqHunt Regional Medical Center At GreenvilleComment on above:Performed By: #### CMP, PINR, 20811-7, 18360-3, CBCA, 25083-6, 26659-5 #### [facility] ([id number]) [address] [place] [address] 32440Ipnp nitrogen [Mass/Vol]40 mg/dLHigh5-27ProHunt Regional Medical Center At GreenvilleComment on above:Performed By: #### CMP, PINR, 75931-8, 41464-7, CBCA, 87407-3, 30196-5 #### [facility] ([id number]) [address] [place] [address] 25093PILCFPPASrr 59-35-2156Qhyrzsuzt [Mass/Vol]1.7 mg/dLLow1.8-2.6 ProMFabiola HospitalComment on above:Performed By: #### CMP, PINR, 60001- 9, 16133-3, CBCA, 13843-4, 23738-5 #### [facility] ([id number]) [address] [place] [address] 23966Fdwhmiiyazs peptide B [Mass/Vol]on 26-87-1355Mhbrcelkrzo peptide B (Bld) [Mass/Vol]206 pg/mLHigh<100.0ProHunt Regional Medical Center At GreenvilleComment on above:Performed By: #### CMP, PINR, 04295-0, 46498-4, CBCA, 49463-1, 17652-3 #### [facility] ([id number]) [address] [place] [address] 52302ZGQRVLQ AND INRon 04-53-1661YKR Coag (PPP) [Relative time]1.1 {INR}Normal0.8-1.1PHocking Valley Community HospitalComment on above:Performed By: #### CMP, PINR, 19210-3, 76127-4, CBCA, 67392-6, 49231-7 #### [facility] ([id number]) [address] [place] [address] 05532XJ Coag (PPP) [Time]12.3 sNormal9.8-13.2PHocking Valley Community HospitalComment on above:Result Comment: NEW REFERENCE RANGEPerformed By: #### CMP, PINR, 57757-9, 00879-5, CBCA, 27858-8, 18705-1 #### [facility] ([id number]) [address] [place] [address] 35911MIRFQGHZ Ion 23-50-9798Inrljltg I.cardiac [Mass/Vol]0.01 ng/mL Normal0.00-0.04Children's Hospital of ColumbusComment on above:Performed By: #### CMP, PINR, 80760-0, 50555-6, CBCA, 78170-2, 62990-2 #### [facility] ([id number]) [address] [place] [address] 28877yKES Coag (PPP) [Time]on 70-09-7462yWEC Coag (Bld) [Time]28 s Zisnqu34-25NxkJiugsuHunt Regional Medical Center At GreenvilleComment on above:Result Comment: NEW REFERENCE RANGEPerformed By: #### CMP, PINR, 83829-4, 93530-0, CBCA, 66504-6, 87171-0 #### [facility] ([id number]) [address] [place] [address] 24346Jueoguxxv Auto (Bld) [#/Vol]Ordered By: Sarai Mendez on 00-29-6447Ckapicbwh (Bld) [#/Vol]0.1 10*3/uL0.0-0.2FWayne HospitalBasophils/100 WBC Auto (Bld)Ordered By: Sarai Mendez on 01-29-2023 Basophils/100 WBC (Bld)0.6 %.[facility]ille HospitalEosinophils Auto (Bld) [#/Vol]Ordered By: Sarai Mendez on 52-56-2051Ccmcwlsghyo (Bld) [#/Vol] 0.0 10*3/uL0.0-0.45B[facility]ille HospitalEosinophils/100 WBC Auto (Bld)Ordered By: Sarai Mendez on 43-05-2281Afzjrakcdxj/100 WBC (Bld)0.4 %. [facility] HospitalErythrocyte distribution width Auto (RBC) [Ratio]Ordered By: Sarai Mendez on 22-04-1505Hxiplkjwycg distribution width (RBC) [Ratio]13.8 %12.0-14.8[facility]ille HospitalHematocrit Auto (Bld) [Volume fraction]Ordered By: Sarai Mendez on 02-45-0077Auzgpsycbj (Bld) [Volume fraction]41.9 %38.8-50.0[facility] HospitalHemoglobin [Mass/volume] in BloodOrdered By: Sarai Mendez on 30-34-5011Uhpspasbpe (Bld) [Mass/Vol]14.2 g/dL13.0-17.0[facility] HospitalLeukocytes [#/volume] corrected for nucleated erythrocytes in Blood by Automated coun Ordered By: Sarai Mendez on 51-61-6755YEM corrected for nucl RBC Auto (Bld) [#/Vol]11.9 10*3/uL4.1-10.5FWayne HospitalLymphocytes Auto (Bld) [#/Vol]Ordered By: Sarai Mendez on 49-54-1068Wowovdmocds (Bld) [#/Vol] 1.3 10*3/uL1.00-4.8[facility]ille HospitalLymphocytes/100 WBC Auto (Bld)Ordered By: Sarai Mendez on 50-88-3240Jwwsojeyknd/100 WBC (Bld)10.5 %. [facility] HospitalMCH Auto (RBC) [Entitic mass]Ordered By: Sarai Mendez on 95-92-7311MJG (RBC) [Entitic mass]35.8 pg27.5-35.2FWayne HospitalMCHC Auto (RBC) [Mass/Vol]Ordered By: Sarai Mendez on 32-37-9700ONNA (RBC) [Mass/Vol]33.8 g/dL32.5-35.6FWayne HospitalMCV Auto (RBC) [Entitic vol]Ordered By: Sarai Mendez on 57-74-3734NHN (RBC) [Entitic vol]105.8 fL83.5-101B[facility]ville [facility] Crille HospitalMonocytes Auto (Bld) [#/Vol]Ordered By: Sarai Mendez on 20-38-6218Cebllixrr (Bld) [#/Vol]0.6 10*3/uL0.0-0.8B[facility] HospitalMonocytes/100 WBC Auto (Bld)Ordered By: Sarai Mendez on 19-63-9576Piqaxwifm/100 WBC (Bld)5.3 %. [facility] HospitalNeutrophils Auto (Bld) [#/Vol]Ordered By: Sarai Mendez on 33-98-5910Ogpdaveockv (Bld) [#/Vol]9.9 10*3/uL1.8-7.7 [facility] HospitalNeutrophils/100 WBC Auto (Bld)Ordered By: Sarai Mendez on 05-89-8391Ymgccuuzsom/100 WBC (Bld)83.2 %.[facility] Crille HospitalNucleated erythrocytes [Presence] in Blood by Automated count Ordered By: Sarai Mendez on 01-61-3641Fkgmydaeq RBC Auto Ql (Bld)0.1 /100{WBC}0-0.5FWayne HospitalPlatelet mean volume Auto (Bld) [Entitic vol]Ordered By: Sarai Mendez on 05-04-3919Yabexhqw mean volume (Bld) [Entitic vol]8.4 fL6.6-10.1FWayne HospitalPlatelets Auto (Bld) [#/Vol]Ordered By: Sarai Mendez on 64-86-9473Xmxbbzoro (Bld) [#/Vol]187 10*3/qF019-088ZsrckgimjBrecksville Va / Crille HospitalRBC Auto (Bld) [#/Vol]Ordered By: Sarai Mendez on 72-11-0365ENG (Bld) [#/Vol]3.96 10*6/uL3.90-5.60B[facility] Crille HospitalWBC Auto (Bld) [#/Vol]Ordered By: Sarai Mendez on 04-58-8545IXZ (Bld) [#/Vol]11.9 10*3/uL4.1-10.5FWayne Hospital Bilirubin Test strip Ql (U)Ordered By: Sarai Mendez on 55-76-5211Veoypcmkc Ql (U)NegativeNegativeBrecksville Va / Crille HospitalCalcium [Mass/volume] in Serum or PlasmaOrdered By: Sarai Mendez on 85-11-7566Jggihqy [Mass/Vol]9.3 mg/dL8.6-10.3FWayne HospitalCarbon dioxide, total [Moles/volume] in Serum or PlasmaOrdered By: Sarai Mendez on 15-22-4321WW0 [Moles/Vol]28.7 mmol/L21.0-31.0[facility] HospitalChloride [Moles/volume] in Serum or PlasmaOrdered By: Sarai Mendez on 01-26-2023 Chloride [Moles/Vol]101 mmol/X35-644JknzzzapfBrecksville Va / Crille HospitalColor Auto (U)Ordered By: Sarai Mendez on 64-31-8563Rjzdd (U)YellowYellowBrecksville Va / Crille HospitalCreatinine [Mass/volume] in Serum or PlasmaOrdered By: Sarai Mendez on 62-49-9557Iglgrlpesj [Mass/Vol]1.01 mg/dL0.70-1.30B[facility] Crille HospitalFructosamine [Moles/volume] in Serum or PlasmaOrdered By: Sarai Mendez on 61-01-4862Rjgfirfrmnzb [Moles/Vol]192 umol/L0-285Brecksville Va / Crille HospitalComment on above:Published reference interval for apparently healthysubjects between age 20 and 60 is 205 - 285 umol/L and in apoorly controlled diabetic population is 228 - 563 umol/Lwith a mean of 396 umol/L.Performed at: [facility] [id number] Director: Lucas Cooper PhD, Phone: [phone] [Mass/volume] in Serum or PlasmaOrdered By: Sarai Mendez on 22-51-0218Sbwpfkq [Mass/Vol]126 mg/iP34-136DphpwoebbBrecksville Va / Crille HospitalComment on above:ADA recommended reference rangeRandom Glucose Reference Range is dependent on time and content of last meal. Glucose of more than 200 mg/dL in a nonstressed, ambulatory subject supports the diagnosisof Diabetes Mellitus.Ketones Auto test strip (U) [Mass/Vol]Ordered By: Sarai Mendez on 68-65-9593Njnvzbu (U) [Mass/Vol]NegativeNegativeBrecksville Va / Crille HospitalNitrite Test strip Ql (U)Ordered By: Sarai Mendez on 94-16-0714Nnwnrox Ql (U)NegativeNegative [facility] HospitalNo Panel InformationOrdered By: Sarai Mendez on 47-85-5027Jnxpfcdhx GFR (CKD-EPI)> 60.0 mL/MinBrecksville Va / Crille HospitalPharmacy Creatinine Clearance (ChemN/AFWayne Hospital Potassium [Moles/volume] in Serum or PlasmaOrdered By: Sarai Mendez on 31-95-9156Rhyqrkjxx [Moles/Vol]4.2 mmol/L3.5-5.1FWayne HospitalProtein Auto test strip (U) [Mass/Vol]Ordered By: Sarai Mendez on 10-69-1794Adfnjid (U) [Mass/Vol]NegativeNegativeKettering Health Miamisburgerum or plasma anion gap determinationOrdered By: Sarai Mendez on 11-95-6706Zvsjx gap [Moles/Vol]10.5 mmol/L6.0-15.0K[facility]tering Health Miamisburgodium [Moles/volume] in Serum or PlasmaOrdered By: Sarai Mendez on 44-09-1833Moxjpn [Moles/Vol]136 mmol/J873-213UhrpuhhiyBrecksville Va / Crille Hospital Specific gravity Auto test strip (U) [Rel density]Ordered By: Sarai Mendez on 23-93-5280Eiijmqfk gravity (U) [Rel density]1.0191.001-1.030B[facility] Crille HospitalUrea nitrogen [Mass/volume] in Serum or PlasmaOrdered By: Sarai Mendez on 74-01-1398Cxwr nitrogen [Mass/Vol]21 mg/dL7-25B[facility]ville [facility] Crille HospitalUrine clarity by refractometry automatedOrdered By: Sarai Mendez on 85-84-3529Iuefedt Refractometry automated (U)ClearCleCleveland ClinicUrine glucose measurement by automated test strip (mass/volume)Ordered By: Sarai Mendez on 52-33-2863Inzeawc Auto test strip (U) [Mass/Vol]Normal mg/dLNoTriHealth Good Samaritan HospitalUrine hemoglobin detection by automated test stripOrdered By: Sarai Mendez on 86-85-4563Blqxdhveva Auto test strip Ql (U)NegativeNegSelect Medical Specialty Hospital - Southeast OhioUrine leukocyte esterase detection by automated test stripOrdered By: Sarai Mendez on 31-49-7739Cpuoizaoe esterase Auto test strip Ql (U) NegativeNegSelect Medical Specialty Hospital - Southeast OhioUrobilinogen Auto test strip (U) [Mass/Vol]Ordered By: Sarai Mendez on 19-28-8676Tzebhymrcaby (U) [Mass/Vol]Normal mg/dLNormSelect Medical Specialty Hospital - Cleveland-FairhillpH Auto test strip (U)Ordered By: Sarai Mendez on 09-25-0859tF (U)7.0 [pH]5.0-9.0B[facility] / Crille HospitalC-REACTIVE PROTEIN (CRP)on 34-44-9979PJZ [Mass/Vol]<0.9 mg/dLPaulding County Hospital CREATINE KINASEon 78-40-7556WZ [Catalytic activity/Vol] 35 U/LLow51 - 298 U/LCleveland ClinicComprehensive metabolic 2000 panelon 74-90-2635Aegxexe [Mass/Vol]4.9 g/dL3.9 - 4.9 g/dLAnnapolis ClinicALP [Catalytic activity/Vol]57 U/L38 - 113 U/LCleveland ClinicALT [Catalytic activity/Vol]27 U/L10 - 54 U/LCleveland ClinicAnion gap [Moles/Vol]15 mmol/L9 - 18 mmol/L [facility]uder HospitalAST [Catalytic activity/Vol]16 U/L14 - 40 U/LCleveland [facility] Bilirubin [Mass/Vol]0.7 mg/dL0.2 - 1.3 mg/dLMagruder HospitalCalcium [Mass/Vol] 10.3 mg/dLHigh8.5 - 10.2 mg/dLMagruder HospitalChloride [Moles/Vol]98 mmol/L97 - 105 mmol/LCleveland ClinicCO2 [Moles/Vol]24 mmol/L22 - 30 mmol/LCleveland [facility] Creatinine [Mass/Vol]0.98 mg/dL0.73 - 1.22 mg/dLMagruder HospitalEstimated Glomerular Filtration Rate87 mL/min/1.73m>=60 mL/min/1.73mCleveland [facility]brook [facility] Center Glucose [Mass/Vol]120 mg/cTXknl45 - 99 mg/dLMagruder HospitalPotassium [Moles/Vol]4.3 mmol/L3.7 - 5.1 mmol/LCleveland ClinicProtein [Mass/Vol]7.1 g/dL 6.3 - 8.0 g/dLNorwalk Memorial Hospitalodium [Moles/Vol]137 mmol/L136 - 144 mmol/L [facility] HospitalUrea nitrogen [Mass/Vol]20 mg/dL9 - 24 mg/dLMagruder Hospital RHEUMATOID FACTOR BLon 40-39-9949Oiwwbpxhxp factor Qn<16 IU/mLCleveland Westbrook Medical Center URIC ACID BLOODon 05-01-4335Weocn [Mass/Vol]6.1 mg/dL4.0 - 8.1 mg/dLMagruder HospitalVITAMIN B12 BLOODon 89-42-8453Shcrahqhc (Vitamin B12) [Mass/Vol]343 pg/mL 232 - 1,245 pg/mLCleveland Westbrook Medical CenterCBC panel Auto (Bld)on 70-44-6138Ezxnbkybqru distribution width (RBC) [Ratio]12.9 %11.5 - 15.0 %[facility]uder HospitalHematocrit (Bld) [Volume fraction]48.7 %39.0 - 51.0 %[facility]uder HospitalHemoglobin (Bld) [Mass/Vol]16.3 g/dL13.0 - 17.0 g/dLSelect Medical Specialty Hospital - Columbus SouthH (RBC) [Entitic mass]35.6 nxPpbk07.0 - 34.0 pgCAshtabula County Medical CenterHC (RBC) [Mass/Vol]33.5 g/dL30.5 - 36.0 g/dLMagruder HospitalMCV (RBC) [Entitic vol]106.3 xMBgct38.0 - 100.0 fLClevelwake forest baptist health [facility] ClinicNucleated RBC (Bld) [#/Vol]<0.01 k/uLMagruder HospitalPlatelet mean volume (Bld) [Entitic vol]10.7 fL9.0 - 12.7 fLCbarberton citizens hospital ClinicPlatelets (Bld) [#/Vol] 207 10*3/uL150 - 400 k/uLMagruder HospitalRBC (Bld) [#/Vol]4.58 10*6/uL4.20 - 6.00 m/uLMagruder HospitalWBC (Bld) [#/Vol]12.21 10*3/uLHigh3.70 - 11.00 k/uL [facility]uder HospitalESR Westergren method (Bld) [Velocity]on 65-83-1638GYO (Bld) [Velocity]2 mm/h0 - 15 mm/hrSheltering Arms Hospitalbumin [Mass/volume] in Serum or Plasma by Bromocresol green (BCG) dye binding methoOrdered By: Sarai Mendez on 49-78-8823Ogyvskq BCG dye [Mass/Vol]4.3 g/dL3.5-5.7FWayne HospitalGlucose mean value [Mass/volume] in Blood Estimated from glycated hemoglobinOrdered By: Sarai Mendez on 67-85-1719Mdiffou glucose Estimated from glycated hemoglobin (Bld) [Mass/Vol]114 mg/dLBrecksville Va / Crille HospitalHemoglobin A1c percentageOrdered By: Sarai Mendez on 36-68-0453EdY2w (Bld) [Mass fraction]5.6 %4.3-5.6FWayne HospitalComment on above:Increased risk for diabetes: 5.7 - 6.4diabetes: >6.4glycemic control for adults with diabetes: <7.0Hemoglobin [Mass/volume] in BloodOrdered By: Sarai Mendez on 68-80-4541Aypnbsapdo (Bld) [Mass/Vol]14.7 g/dL13.0-17.0B[facility]ville [facility] Crille HospitalVitamin D+Metabolites [Mass/volume] in Serum or Plasma Ordered By: Sarai Mendez on 77-89-1041Npznthk D+Metabolites [Mass/Vol]13.3 ng/nW64-070TivihhwqkBrecksville Va / Crille HospitalComment on above:VITAMIN D STATUS 25(OH)VITAMIN D RANGE (ng/mL) Deficient <20 Insufficient 20 to <64Qedwqdysrd32 to 100Reference: Ras MF,Tanika STILES, Sergio OWUSU, et al. Evaluation,treatment, and prevention of vitamin D deficiency; an Endocrine Society clinical practice guideline. JCEM. 2010; 96(7):1911-30.Activated partial thromboplastin time (aPTT) in platelet poor plasma by coagulation a Ordered By: Damien Holbrook on 19-81-8034lYPF Coag (PPP) [Time]24.5 s25.1-36.5 [facility] Crille HospitalAlanine aminotransferase [Enzymatic activity/volume] in Serum or PlasmaOrdered By: Damien Holbrook on 05-76-4738OMZ [Catalytic activity/Vol]37 U/L7-52B[facility]ville [facility] / Crille HospitalAlbumin [Mass/volume] in Serum or Plasma by Bromocresol green (BCG) dye binding metho Ordered By: Damien Holbrook on 62-35-1514Yjwljqj BCG dye [Mass/Vol]4.3 g/dL3.5-5.7 [facility] Cr[facility] HospitalAlkaline phosphatase [Enzymatic activity/volume] in Serum or PlasmaOrdered By: Damien Holbrook on 60-51-2568RRB [Catalytic activity/Vol]51 U/Q25-379FfsjizxymBrecksville Va / Crille HospitalAspartate aminotransferase [Enzymatic activity/volume] in Serum or PlasmaOrdered By: Damien Holbrook on 24-43-7294EON [Catalytic activity/Vol]26 U/W81-21RxjaxxtvyBrecksville Va / Crille HospitalAutomated erythrocytes count in urine sediment (number/area)Ordered By: Damien Holbrook on 87-88-4521OQX Auto (Urine sed) [#/Area] 3-4 [HPF]0-4FWayne HospitalAutomated leukocytes count in urine sediment (number/area)Ordered By: Damien Holbrook on 89-16-9050UYP Auto (Urine sed) [#/Area]3-4 [HPF]0-4FWayne HospitalAutomated urine hyaline casts count (number/volume)Ordered By: Damien Holbrook on 30-48-5455Zhcnumr casts Auto (U) [#/Vol]20-49 [LPF]0-1FWayne HospitalBasophils Auto (Bld) [#/Vol]Ordered By: Damien Holbrook on 61-06-1222Ywoztsnni (Bld) [#/Vol] 0.1 10*3/uL0.0-0.2FWayne HospitalBasophils/100 WBC Auto (Bld) Ordered By: Damien Holbrook on 48-71-8792Hgrebpaqp/100 WBC (Bld)1.1 %.[facility] Crille HospitalBilirubin Test strip Ql (U)Ordered By: Damien Holbrook on 74-67-1303Yqzjqwtsu Ql (U)1+NegativeBrecksville Va / Crille Hospital Bilirubin.total [Mass/volume] in Serum or PlasmaOrdered By: Damien Holbrook 08-45-1176Htjhxtszc [Mass/Vol]1.0 mg/dL0.3-1.0[facility] Calcium [Mass/volume] in Serum or PlasmaOrdered By: Damien Holbrook on 10-11-2022 Calcium [Mass/Vol]9.7 mg/dL8.6-10.3FWayne HospitalCarbon dioxide, total [Moles/volume] in Serum or PlasmaOrdered By: Damien Holbrook on 13-17-8310OH9 [Moles/Vol]27.5 mmol/L21.0-31.0[facility] Chloride [Moles/volume] in Serum or PlasmaOrdered By: Damien Holbrook on 10-11-2022 Chloride [Moles/Vol]101 mmol/B66-605IvsiedjenBrecksville Va / Crille HospitalColor Auto (U)Ordered By: Damien Holbrook on 43-71-4126Cvvzf (U)Dark yellowYellowBrecksville Va / Crille HospitalCreatinine [Mass/volume] in Serum or PlasmaOrdered By: Damien Holbrook on 61-68-2761Bdwvfuvpbr [Mass/Vol]1.25 mg/dL0.70-1.30[facility] Crille HospitalEosinophils Auto (Bld) [#/Vol]Ordered By: Damien Holbrook on 20-94-0291Vkjtoxfijlg (Bld) [#/Vol]0.0 10*3/uL0.0-0.45[facility] Crille HospitalEosinophils/100 WBC Auto (Bld)Ordered By: Damien Holbrook on 44-14-8183Hppsogdpiki/100 WBC (Bld)0.4 %.[facility] Erythrocyte distribution width Auto (RBC) [Ratio]Ordered By: Damien Holbrook on 07-98-9000Ssueybugsmv distribution width (RBC) [Ratio]14.4 %12.0-14.8[facility] Crille HospitalGlobulin Calc (S) [Mass/Vol]Ordered By: Damien Holbrook 48-26-0221Goztppno (S) [Mass/Vol]2.8 g/dLBrecksville Va / Crille Hospital Glucose [Mass/volume] in Serum or PlasmaOrdered By: Damien Holbrook on 10-11-2022 Glucose [Mass/Vol]128 mg/dT93-032FekrddrsaBrecksville Va / Crille HospitalComment on above:ADA recommended reference rangeRandom Glucose Reference Range is dependent on time and content of last meal. Glucose of more than 200 mg/dL in a nonstressed, ambulatory subject supports the diagnosisof Diabetes Mellitus. Hematocrit Auto (Bld) [Volume fraction]Ordered By: Damien Holbrook on 10-11-2022 Hematocrit (Bld) [Volume fraction]45.3 %38.8-50.0[facility] Crille HospitalHemoglobin [Mass/volume] in BloodOrdered By: Damien Holbrook 10-11-2022 Hemoglobin (Bld) [Mass/Vol]15.5 g/dL13.0-17.0[facility] Ketones Auto test strip (U) [Mass/Vol]Ordered By: Damien Holbrook on 10-11-2022 Ketones (U) [Mass/Vol]TraceNegativeBrecksville Va / Crille HospitalLaboratory - CoagulationOrdered By: Damien Holbrook on 33-01-9486NW Coag (PPP) [Time]11.8 s 9.0-12.9[facility] Crille HospitalLeukocytes [#/volume] corrected for nucleated erythrocytes in Blood by Automated counOrdered By: Damien Holbrook on 36-35-2583SFB corrected for nucl RBC Auto (Bld) [#/Vol]11.9 10*3/uL4.1-10.5 [facility] Crille HospitalLymphocytes Auto (Bld) [#/Vol]Ordered By: Damien Holbrook on 44-51-7171Etocngnffni (Bld) [#/Vol]1.5 10*3/uL1.00-4.8[facility] Crille HospitalLymphocytes/100 WBC Auto (Bld)Ordered By: Damien Holbrook on 28-18-4343Tkdbyseuxou/100 WBC (Bld)13.0 %.[facility] Crille HospitalMCH Auto (RBC) [Entitic mass]Ordered By: Damien Holbrook on 77-01-5110UEV (RBC) [Entitic mass]35.3 pg27.5-35.2FWayne HospitalMCHC Auto (RBC) [Mass/Vol]Ordered By: Damien Holbrook on 40-46-8318IPHV (RBC) [Mass/Vol]34.2 g/dL 32.5-35.6FWayne HospitalMCV Auto (RBC) [Entitic vol]Ordered By: Damien Holbrook on 66-27-0197JJP (RBC) [Entitic vol]103.4 fL83.5-101B[facility] Crille HospitalMagnesium [Mass/volume] in Serum or PlasmaOrdered By: Damien Holbrook on 88-20-2645Jjskujiya [Mass/Vol]1.6 mg/dL1.9-2.7FWayne HospitalMonocyte distribution width [Entitic volume] in Blood by AutomatedOrdered By: Damien Holbrook on 49-88-0685Nhkfwvuy distribution width Auto (Bld) [Entitic vol]21.21 %0.00-20.00B[facility]ville [facility] / Crille HospitalComment on above:For adults in ED, MDW > 20.0 may be associated with a higher risk of sepsis during the first 12 hrs of hospital admissionMonocytes Auto (Bld) [#/Vol] Ordered By: Damien Holbrook on 32-78-7717Kbhjvwzdg (Bld) [#/Vol]1.1 10*3/uL0.0-0.8 [facility] HospitalMonocytes/100 WBC Auto (Bld)Ordered By: Damien Holbrook on 58-10-0501Jykhwhzpy/100 WBC (Bld)9.1 %.[facility] Crille HospitalNatriuretic peptide B [Mass/Vol]Ordered By: Damien Holbrook on 10-11-2022 Natriuretic peptide B (Bld) [Mass/Vol]206.0 pg/mL5-100B[facility]ville [facility] Crille HospitalNeutrophils Auto (Bld) [#/Vol]Ordered By: Damien Holbrook on 10-11-2022 Neutrophils (Bld) [#/Vol]9.1 10*3/uL1.8-7.7FWayne Hospital Neutrophils/100 WBC Auto (Bld)Ordered By: Damien Holbrook on 10-11-2022 Neutrophils/100 WBC (Bld)76.4 %.[facility] Crille HospitalNitrite Test strip Ql (U)Ordered By: Damien Holbrook on 33-27-9201Xsoofdv Ql (U)NegativeNegative [facility] Crille HospitalNo Panel InformationOrdered By: Damien Holbrook on 32-79-9777Sxeclnwzj GFR (CKD-EPI)> 60.0 mL/MinBrecksville Va / Crille Hospital Pharmacy Creatinine Clearance (ChemN/AFWayne HospitalNucleated erythrocytes [Presence] in Blood by Automated countOrdered By: Damien Holbrook on 84-52-6692Ghnixemud RBC Auto Ql (Bld)0.1 /100{WBC}0-0.5FWayne HospitalPlatelet mean volume Auto (Bld) [Entitic vol]Ordered By: Damien Holbrook on 83-64-7378Dxkfllee mean volume (Bld) [Entitic vol]8.6 fL6.6-10.1 [facility] HospitalPlatelet poor plasma international normalized ratio (INR) by coagulation assay (relatOrdered By: Damien Holbrook on 00-57-6993PCX Coag (PPP) [Relative time]1.0 {INR}[facility] HospitalComment on above:INR Therapeutic Range A) Pre- [...] Auto (Bld) [#/Vol]Ordered By: Damien Holbrook on 20-90-9945Imjibffms (Bld) [#/Vol]197 10*3/uI663-935ByghkrqdiBrecksville Va / Crille HospitalPotassium [Moles/volume] in Serum or PlasmaOrdered By: Damien Holbrook on 09-89-0883Xusrpahtn [Moles/Vol]4.0 mmol/L3.5-5.1FWayne HospitalProtein Auto test strip (U) [Mass/Vol]Ordered By: Damien Holbrook on 22-03-3362Gfmwpnz (U) [Mass/Vol]100 mg/dLNegativeBrecksville Va / Crille HospitalProtein [Mass/volume] in Serum or PlasmaOrdered By: Damien Holbrook on 95-96-7059Zykgbcf [Mass/Vol]7.1 g/dL6.4-8.9[facility] HospitalRBC Auto (Bld) [#/Vol]Ordered By: Damien Holbrook on 17-85-6407XGI (Bld) [#/Vol]4.38 10*6/uL3.90-5.60[facility]amisburgerum or plasma albumin/globulin mass ratioOrdered By: Damien Holbrook on 10-11-2022 Albumin/Globulin [Mass ratio]1.5 {ratio}[facility] Miamisburgerum or plasma anion gap determinationOrdered By: Damien Holbrook on 53-59-6956Bmxva gap [Moles/Vol]12.5 mmol/L6.0-15.0[facility]amisburgodium [Moles/volume] in Serum or PlasmaOrdered By: Damien Holbrook on 62-86-2854Bedkuv [Moles/Vol]137 mmol/O053-817EkiezsncsKettering Health Miamisburgpecific gravity Auto test strip (U) [Rel density]Ordered By: Damien Holbrook on 89-41-8780Xzrdnlgl gravity (U) [Rel density]1.0271.001-1.030[facility] Squamous epithelial cells detection in urine sediment by light microscopyOrdered By: Damien Holbrook on 46-81-1559Ppdlzqetth cells.squamous LM Ql (Urine sed)0-1 [HPF]0-2FWayne HospitalTroponin I.cardiac [Mass/volume] in Serum or Plasma by Detection limit <= 0.01 ng/Ordered By: Damien Holbrook on 79-05-5043Pnqejqga I.cardiac DL <= 0.01 ng/mL [Mass/Vol]17.7 pg/mL0.0-20.0 [facility] HospitalUrea nitrogen [Mass/volume] in Serum or Plasma Ordered By: Damien Holbrook on 86-03-5096Ddbh nitrogen [Mass/Vol]19 mg/dL7-25 [facility] HospitalUrine bacteria detection by automated method Ordered By: Damien Holbrook on 67-79-9558Qchsykky Auto Ql (U)None seenNone Seen [facility] HospitalUrine clarity by refractometry automatedOrdered By: Damien Holbrook on 89-75-0134Hhnwzqu Refractometry automated (U)CloudyClear [facility] Crille HospitalUrine glucose measurement by automated test strip (mass/volume)Ordered By: Damien Holbrook on 73-95-1013Vjrkmld Auto test strip (U) [Mass/Vol]Normal mg/dLNoTriHealth Good Samaritan HospitalUrine hemoglobin detection by automated test stripOrdered By: Damien Holbrook 26-26-5441Iqstgvbahx Auto test strip Ql (U)NegativeNegativeBrecksville Va / Crille HospitalUrine leukocyte esterase detection by automated test stripOrdered By: Damien Holbrook on 36-59-2111Mxxtvkdvw esterase Auto test strip Ql (U)1+ NegativeBrecksville Va / Crille HospitalUrobilinogen Auto test strip (U) [Mass/Vol]Ordered By: Damien Holbrook on 32-50-3933Dnaybmibnbzc (U) [Mass/Vol] Normal mg/dLNoTriHealth Good Samaritan HospitalWBC Auto (Bld) [#/Vol]Ordered By: Damien Holbrook on 03-50-3198QKU (Bld) [#/Vol]11.9 10*3/uL4.1-10.5FWayne HospitalpH Auto test strip (U)Ordered By: Damien Holbrook on 86-51-3489oZ (U)5.5 [pH]5.0-9.0[facility] HospitalAutomated erythrocytes count in urine sediment (number/area)Ordered By: Sarai Georges on 83-34-3197RPX Auto (Urine sed) [#/Area]1-2 [HPF]0-4FWayne HospitalAutomated leukocytes count in urine sediment (number/area)Ordered By: Sarai Georges on 30-48-4124VLE Auto (Urine sed) [#/Area]None seen [HPF]0-4 [facility] HospitalBasophils Auto (Bld) [#/Vol]Ordered By: Sarai Georges on 33-18-0388Kyfzirter (Bld) [#/Vol]0.1 10*3/uL0.0-0.2FWayne HospitalBasophils/100 WBC Auto (Bld)Ordered By: Sarai Georges on 95-16-3879Gbqacwmra/100 WBC (Bld)0.6 %.[facility] Bilirubin Auto test strip Ql (U)Ordered By: Sarai Georges on 10-02-2022 Bilirubin Ql (U)NegativeNegativeBrecksville Va / Crille HospitalC reactive protein [Mass/volume] in Serum or PlasmaOrdered By: Sarai Georges on 10-02-2022 CRP [Mass/Vol]0.5 mg/dL0.0-0.5FWayne HospitalCreatine kinase [Enzymatic activity/volume] in Serum or PlasmaOrdered By: Sarai Georges on 57-37-9733DQ [Catalytic activity/Vol]52 U/S37-158KwznykimcBrecksville Va / Crille HospitalCreatinine [Mass/volume] in Serum or PlasmaOrdered By: Sarai Georges on 44-11-9265Lswjfwvhwx [Mass/Vol]1.00 mg/dL0.70-1.30[facility] HospitalDNA double strand Ab [Units/volume] in SerumOrdered By: Sarai Georges on 67-27-8822ZOP double strand Ab Qn (S)[IU]/mL0-9[facility] Comment on above:Negative <5 Equivocal 5 - 9 Positive >9Performed at: - [facility] [id number] Director: Lucas Cooper PhD, Phone: [phone] Auto (Bld) [#/Vol]Ordered By: Sarai Georges on 46-16-8331Sfngrminxix (Bld) [#/Vol]0.0 10*3/uL0.0-0.45[facility] HospitalEosinophils/100 WBC Auto (Bld)Ordered By: Sarai Georges on 50-69-9357Umujqvttorz/100 WBC (Bld)0.5 %.[facility] Erythrocyte distribution width Auto (RBC) [Ratio]Ordered By: Sarai Georges on 42-77-6589Reznqfadukn distribution width (RBC) [Ratio]14.9 %12.0-14.8[facility] HospitalErythrocyte sedimentation rate by Photometric method Ordered By: Sarai Georges on 39-47-6896NXS Photometric method (Bld) [Velocity] 16 mm/hr0-19[facility] HospitalHematocrit Auto (Bld) [Volume fraction]Ordered By: Sarai Georges on 07-76-2292Wdoekxzwzg (Bld) [Volume fraction]41.2 %38.8-50.0[facility] HospitalHemoglobin [Mass/volume] in BloodOrdered By: Sarai Georges on 55-89-3774Wjdqhgrlrc (Bld) [Mass/Vol]14.0 g/dL13.0-17.0[facility] HospitalKetones Auto test strip (U) [Mass/Vol]Ordered By: Sarai Georges on 96-39-0145Jqveofu (U) [Mass/Vol]NegativeNegativeBrecksville Va / Crille HospitalLaboratory - UrinalysisOrdered By: Sarai Georges on 92-26-0786Lmydrvk casts LM Ql (Urine sed)0-8 [LPF]0-8[facility] HospitalLeukocytes [#/volume] corrected for nucleated erythrocytes in Blood by Automated counOrdered By: Sarai Georges on 55-95-2571OLQ corrected for nucl RBC Auto (Bld) [#/Vol]9.5 10*3/uL4.1-10.5 [facility] HospitalLymphocytes Auto (Bld) [#/Vol]Ordered By: Sarai Georges on 17-13-2413Mxgjfzwvccw (Bld) [#/Vol]1.7 10*3/uL1.00-4.8 [facility] HospitalLymphocytes/100 WBC Auto (Bld)Ordered By: Sarai Georges on 65-89-7855Kiaccszowzp/100 WBC (Bld)18.5 %.[facility] Auto (RBC) [Entitic mass]Ordered By: Sarai Georges on 27-98-8194RQI (RBC) [Entitic mass]35.4 pg27.5-35.2FCleveland Clinic South Pointe HospitalHC Auto (RBC) [Mass/Vol]Ordered By: Sarai Georges on 18-70-9539WRWH (RBC) [Mass/Vol]33.9 g/dL32.5-35.6FWayne HospitalMCV Auto (RBC) [Entitic vol]Ordered By: Sarai Georges on 10-78-3019WQC (RBC) [Entitic vol]104.5 fL83.5-101[facility] HospitalMonocytes Auto (Bld) [#/Vol]Ordered By: Sarai Georges on 65-61-7753Oivlnesbn (Bld) [#/Vol]0.7 10*3/uL0.0-0.8[facility] HospitalMonocytes/100 WBC Auto (Bld) Ordered By: Sarai Georges on 26-52-4355Vzjrfvxle/100 WBC (Bld)7.2 %.[facility] HospitalNeutrophils Auto (Bld) [#/Vol]Ordered By: Sarai Georges on 34-01-3063Gqdalepvgqr (Bld) [#/Vol]6.9 10*3/uL1.8-7.7FWayne HospitalNeutrophils/100 WBC Auto (Bld)Ordered By: Sarai Georges on 67-55-6613Fqzxaxjvxaa/100 WBC (Bld)73.2 %.[facility] HospitalNo Panel InformationOrdered By: Sarai Georges on 93-16-4113Bvzbzwjnu GFR (CKD-EPI) > 60.0 mL/MinBrecksville Va / Crille HospitalPharmacy Creatinine Clearance (ChemN/AFWayne HospitalTotal Complement (CH50)>60 U/mL>41 [facility] HospitalComment on above:Age Male Female 1 - [...] to determine out of range values.Performed at: [facility] [id number] Director: Lucas Cooper PhD, Phone: [phone] erythrocytes [Presence] in Blood by Automated count Ordered By: Sarai Georges on 19-59-5032Esiszcccx RBC Auto Ql (Bld)0.1 /100{WBC} 0-0.5FWayne HospitalPlatelet mean volume Auto (Bld) [Entitic vol]Ordered By: Sarai Georges on 91-29-8120Qwbctply mean volume (Bld) [Entitic vol]8.9 fL6.6-10.1FWayne HospitalPlatelets Auto (Bld) [#/Vol] Ordered By: Sarai Georges on 50-78-4396Jxkafahva (Bld) [#/Vol]201 10*3/uL 150-450[facility] HospitalProtein Auto test strip (U) [Mass/Vol] Ordered By: Sarai Georges on 19-37-0623Xehmtdj (U) [Mass/Vol]NegativeNegative [facility] HospitalRBC Auto (Bld) [#/Vol]Ordered By: Sarai Georges on 00-96-9250PKZ (Bld) [#/Vol]3.94 10*6/uL3.90-5.60Fire[facility] Regional Medical CenterSerum Corona extractable nuclear antigen (OPAL) antibody assay (units/volume)Ordered By: Sarai Georges on 17-99-6818Dhiic extractable nuclear Ab Qn (S)<0.2 AI0.0-0.9[facility] Health Miamisburgerum or plasma complement C3 measurement (mass/volume)Ordered By: Sarai Georges on 10-02-2022 Complement C3 [Mass/Vol]147 mg/rV55-627EdqqbteojBrecksville Va / Crille HospitalComment on above:Performed at: [facility] [id number] Director: Lucas Cooper PhD, Phone: [phone] or plasma complement C4 measurement (mass/volume)Ordered By: Sarai Georges on 10-02-2022 Complement C4 [Mass/Vol]29 mg/sG53-41WxqmctzxzKettering Health Miamisburgquamous epithelial cells detection in urine sediment by light microscopyOrdered By: Sarai Georges on 11-15-6386Pktbfrngfb cells.squamous LM Ql (Urine sed)None seen [HPF]0-2FWayne HospitalUrine appearanceOrdered By: Sarai Georges on 02-24-2276Eznaheoxha (U)ClearCleCleveland Clinic Urine bacteria detection by automated methodOrdered By: Sarai Georges on 12-84-8227Accsxktx Auto Ql (U)None seenNone SeenBrecksville Va / Crille HospitalUrine colorOrdered By: Sarai Georges on 93-02-5041Rsoem (U)YellowKeenan Private HospitalUrine glucose measurement by automated test strip (mass/volume)Ordered By: Sarai Georges on 71-09-3766Nibobmw Auto test strip (U) [Mass/Vol]Normal mg/dLNormalBrecksville Va / Crille HospitalUrine hemoglobin detection by automated test stripOrdered By: Sarai Georges on 88-19-0715Izpjdcwtzc Auto test strip Ql (U)NegativeNegSelect Medical Specialty Hospital - Southeast OhioUrine leukocyte esterase detection by automated test stripOrdered By: Sarai Georges on 39-39-4878Grxcpohty esterase Auto test strip Ql (U) NegativeNegSelect Medical Specialty Hospital - Southeast OhioUrine nitrite detection by automated test stripOrdered By: Sarai Georges on 33-66-3592Xowtako Auto test strip Ql (U)NegativeNegativeBrecksville Va / Crille HospitalUrobilinogen Auto test strip (U) [Mass/Vol]Ordered By: Sarai Georges on 93-19-3823Znxwuaszwcep (U) [Mass/Vol]Normal mg/dLNormalBrecksville Va / Crille HospitalWBC Auto (Bld) [#/Vol]Ordered By: Sarai Georges on 25-09-5789EGC (Bld) [#/Vol]9.5 10*3/uL 4.1-10.5FWayne HospitalpH Auto test strip (U)Ordered By: Sarai Georges on 39-20-1904iL (U)1.015 [pH]1.001-1.030[facility] HospitalpH (U)6.5 [pH]5.0-9.0[facility] HospitalRETICULOCYTE on 88-08-6742MYIDT3.90 %Critically high0.60-3.10The [facility] HospitalComment on above:Performed By: #### RETIC #### [facility] [address] [place] [address] Dr. Tracy Eldridge B12 AND FOLATEon 62-60-9862Npvmjctxm (Vitamin B12) [Mass/Vol] 436.0 pg/yGKcxaro827.0-986.0The [facility] HospitalComment on above:Performed By: #### B12FOL #### [facility] [address] [place] [address] Dr. Tracy HubbardFOLATE17.10 ng/mLNormal8.60-58.90The [facility] HospitalComment on above:Performed By: #### B12FOL #### [facility] [address] [place] [address] Dr. Tracy BoyerC AUTO DIFFon 18-56-2609YFVM #0.1 103/ulNormal0.0-0.1The [facility] HospitalComment on above:Performed By: #### CBC #### [facility] [address] [place] [address] Dr. Tracy HubbardBasophils/100 WBC (Bld)0.7 %Normal0.2-2.0[facility] Comment on above:Performed By: #### CBC #### [facility] [address] [place] [address] Dr. Tracy Hou #0.1 103/ulNormal0.0-0.7The [facility] HospitalComment on above: Performed By: #### CBC #### [facility] [address] [place] [address] Dr. Tracy Meehanosinophils/100 WBC (Bld)1.7 %Normal0.9-7.0[facility] Comment on above:Performed By: #### CBC #### [facility] [address] [place] [address] Dr. Tracy Meehanrythrocyte distribution width (RBC) [Ratio]12.8 %Hwjjao25.0-15.0 The [facility] HospitalComment on above:Performed By: #### CBC #### [facility] [address] [place] [address] Dr. Tracy HubbardHematocrit (Bld) [Volume fraction]44.6 %Euvism99.0-54.0The [facility] HospitalComment on above:Performed By: #### CBC #### [facility] [address] [place] [address] Dr. Tracy HubbardHemoglobin (Bld) [Mass/Vol]15.5 g/mCFekdtk82.0-18.0The [facility] HospitalComment on above:Performed By: #### CBC #### [facility] [address] [place] [address] Dr. Tracy Weston #0.03 10e3/ulNormal0.00-0.03The [facility] HospitalComment on above:Performed By: #### CBC #### [facility] [address] [place] [address] Dr. Tracy Weston %0.4 %Normal0.0-0.5The [facility] HospitalComment on above: Performed By: #### CBC #### [facility] [address] [place] [address] Dr. Tracy Arellano #1.7 103/ulNormal1.2-3.8The [facility] HospitalComment on above:Performed By: #### CBC #### [facility] [address] [place] [address] Dr. Tracy Nolandmphocytes/100 WBC (Bld)24.8 %Rtrred51.5-60.0The [facility] HospitalComment on above:Performed By: #### CBC #### [facility] [address] [place] [address] Dr. Tracy Ba DIFF REQNONormalThe Berger HospitalComment on above: Performed By: #### CBC #### [facility] [address] [place] [address] Dr. Tracy Freedman (RBC) [Entitic mass]35.7 pgCritically high25.9-34.0The [facility] HospitalComment on above:Performed By: #### CBC #### [facility] [address] [place] [address] Dr. Tracy Freedman (RBC) [Mass/Vol]34.8 g/iSQnvosq57.9-35.2The [facility] HospitalComment on above:Performed By: #### CBC #### [facility] [address] [place] [address] Dr. Tracy Ellis (RBC) [Entitic vol]102.8 fLCritically high80.0-94.0The [facility] HospitalComment on above:Performed By: #### CBC #### [facility] [address] [place] [address] Dr. Tracy Bone #0.7 103/ulNormal0.3-0.8The [facility] HospitalComment on above:Performed By: #### CBC #### [facility] [address] [place] [address] Dr. Tracy Tamayoocytes/100 WBC (Bld)9.8 %Normal1.7-12.0[facility] Comment on above:Performed By: #### CBC #### [facility] [address] [place] [address] Dr. Tracy Randhawa #4.4 103/ulNormal1.4-6.5The [facility] HospitalComment on above:Performed By: #### CBC #### [facility] [address] [place] [address] Dr. Tracy Gunterutrophils/100 WBC (Bld)62.6 %Chsfzs32.0-75.0The [facility] HospitalComment on above:Performed By: #### CBC #### [facility] [address] [place] [address] Dr. Tracy Archerlet mean volume (Bld) [Entitic vol]10.3 fLNormal9.5-13.5The [facility] HospitalComment on above:Performed By: #### CBC #### [facility] [address] [place] [address] Dr. Tracy MurdockT182 103/wfBqgqww452-336Pko Berger HospitalComment on above: Performed By: #### CBC #### [facility] [address] [place] [address] Dr. Tracy ChowC4.34 106/ulCritically low4.70-6.10The [facility] HospitalComment on above:Performed By: #### CBC #### [facility] [address] [place] [address] Dr. Tracy MejiaBC7.0 103/ulNormal4.0-11.0The [facility] HospitalComment on above: Performed By: #### CBC #### [facility] [address] [place] [address] Dr. Tracy Rashid 97-27-2743TU [Catalytic activity/Vol]84 U/OYmvwki21-686Abt Berger HospitalComment on above:Performed By: #### CMP, CRP, TSH, LIPID, CK #### [facility] [address] [place] [address] Dr. Tracy Hunter 31-83-0140NWN [Mass/Vol]mg/LNormal<=1.0The [facility] HospitalComment on above:Performed By: #### CMP, CRP, TSH, LIPID, CK #### [facility] [address] [address] [address] Tracy MorelID PROFILEon 73-24-6723RQGD-HDL RATIO NORMSRiverview Health InstituteComment on above:Result Comment: 3.3 - 4.4 LOW RISK 4.4 - 7.1 AVERAGE RISK 7.1 - 11.0 MODERATE RISK >11.0 HIGH RISKPerformed By: #### CMP, CRP, TSH, LIPID, CK #### [facility] [address] [address] [address] Tracy HubbardCholesterol [Mass/Vol]145 mg/dLNormal<=200[facility] Comment on above:Performed By: #### CMP, CRP, TSH, LIPID, CK #### [facility] [address] [address] [address] Tracy HubbardCholesterol in HDL [Mass/Vol]45 mg/bLFwpaxe36-91DitAultman Orrville HospitalComment on above:Performed By: #### CMP, CRP, TSH, LIPID, CK #### [facility] [address] [address] [address] Tracy HubbardCholesterol in LDL [Mass/Vol]64.4 mg/dLProtestant Deaconess HospitalComment on above:Performed By: #### CMP, CRP, TSH, LIPID, CK #### [facility] [address] [address] [address] Tracy Laraestermick.total/Cholesterol in HDL [Mass ratio]3.2 {ratio} NormalAultman Orrville HospitalComment on above:Performed By: #### CMP, CRP, TSH, LIPID, CK #### [facility] [address] [place] [address] Dr. Tracy HubbardHDL NORMAL> or = 60 mg/dl - LOW CARDIOVASCULAR RISK <40 mg/dl - HIGH CARDIOVASCULAR RISKProtestant Deaconess HospitalComment on above:Performed By: #### CMP, CRP, TSH, LIPID, CK #### [facility] [address] [address] [address] Tracy HubbardLDL CALC NORMALSEE [facility] Hospital CompanyComment on above:Result Comment: <100 mg/dl OPTIMAL 100 - 129 mg/dl NEAR OR ABOVE OPTIMAL 130 - 159 mg/dl BORDERLINE HIGH 160 - 189 mg/dl HIGH >190 mg/dl VERY HIGH Performed By: #### CMP, CRP, TSH, LIPID, CK #### [facility] [address] [place] [address] Dr. Tracy HubbardTriglyceride [Mass/Vol]178 mg/dLCritically high<=150The [facility] on above:Performed By: #### CMP, CRP, TSH, LIPID, CK #### [facility] [address] [place] [address] Dr. Tracy HubbardVLDL CALC35.6 mg/dLNormalThe [facility] on above: Performed By: #### CMP, CRP, TSH, LIPID, CK #### [facility] [address] [place] [address] Dr. Tracy HubbardPROChristina 14(COMP METB)on 15-26-5140Bftccrr [Mass/Vol]4.1 g/dLNormal 3.4-5.0The [facility] on above:Performed By: #### CMP, CRP, TSH, LIPID, CK #### [facility] [address] [place] [address] Dr. Tracy HubbardAlbumin/Globulin [Mass ratio]1.2 {ratio}NormalThe [facility] on above:Performed By: #### CMP, CRP, TSH, LIPID, CK #### [facility] [address] [place] [address] Dr. Tracy Hernández [Catalytic activity/Vol]66 U/JAqoxgk12-675Dah [facility] on above:Performed By: #### CMP, CRP, TSH, LIPID, CK #### [facility] [address] [place] [address] Dr. Tracy Baird [Catalytic activity/Vol]44 U/TZfbiht88-59Zyw [facility] on above:Performed By: #### CMP, CRP, TSH, LIPID, CK #### [facility] [address] [place] [address] Dr. Tracy Lugo gap [Moles/Vol]12.3 mmol/LNormalAultman Orrville Hospital Comment on above:Performed By: #### CMP, CRP, TSH, LIPID, CK #### [facility] [address] [address] [address] Tracy HubbardAST [Catalytic activity/Vol]26 U/AZrzjmw71-57Rgz [facility] HospitalComment on above:Performed By: #### CMP, CRP, TSH, LIPID, CK #### [facility] [address] [address] [address] Tracy HubbardBilirubin [Mass/Vol]0.8 mg/dLNormal0.2-1.0[facility] Comment on above:Performed By: #### CMP, CRP, TSH, LIPID, CK #### [facility] [address] [address] [address] Tracy HubbardCalcium [Mass/Vol]8.9 mg/dLNormal8.5-10.1[facility] Comment on above:Performed By: #### CMP, CRP, TSH, LIPID, CK #### [facility] [address] [address] [address] Tracy HubbardChloride [Moles/Vol]103 mmol/TNkbjaw37-842JzcAultman Orrville Hospital Comment on above:Performed By: #### CMP, CRP, TSH, LIPID, CK #### [facility] [address] [address] [address] Tracy HubbardCO2 [Moles/Vol]27.0 mmol/NDdsevx77.0-32.0[facility] Comment on above:Performed By: #### CMP, CRP, TSH, LIPID, CK #### [facility] [address] [address] [address] Tracy HubbardCreatinine [Mass/Vol]1.04 mg/dLNormal0.70-1.30The [facility] HospitalComment on above:Performed By: #### CMP, CRP, TSH, LIPID, CK #### [facility] [address] [address] [address] Molina ChangEGFR-AF MOSOTHO>60Normal>=60The [facility] Hospitalment on above:Performed By: #### CMP, CRP, TSH, LIPID, CK #### [facility] [address] [address] [address] Molina ChangEGFR-NON AF MOSOTHO>60Normal>=60The [facility] HospitalComment on above:Performed By: #### CMP, CRP, TSH, LIPID, CK #### [facility] [address] [place] [address] Dr. Tracy HubbardGlobulin (S) [Mass/Vol]3.4 g/dLNormalThe [facility] HospitalComment on above:Performed By: #### CMP, CRP, TSH, LIPID, CK #### [facility] [address] [place] [address] Dr. Tracy HubbardGlucose [Mass/Vol]124 mg/dLCritically zekd35-383Vzr [facility] Hospitalment on above:Performed By: #### CMP, CRP, TSH, LIPID, CK #### [facility] [address] [place] [address] Dr. Tracy HubbardPotassium [Moles/Vol]4.3 mmol/LNormal3.5-5.1[facility] Comment on above:Performed By: #### CMP, CRP, TSH, LIPID, CK #### [facility] [address] [place] [address] Dr. Tracy HubbardProtein [Mass/Vol]7.5 g/dLNormal6.4-8.2[facility] Comment on above:Performed By: #### CMP, CRP, TSH, LIPID, CK #### [facility] [address] [place] [address] Dr. Tracy HubbardSodium [Moles/Vol]138 mmol/YHveolf124-853Uuy [facility] Comment on above:Performed By: #### CMP, CRP, TSH, LIPID, CK #### [facility] [address] [place] [address] Dr. Tracy HubbardUrea nitrogen [Mass/Vol]16.0 mg/dLNormal7.0-18.0The [facility]ha HospitalComment on above:Performed By: #### CMP, CRP, TSH, LIPID, CK #### [facility] [address] [address] [address] Tracy HubbardUrea nitrogen/Creatinine [Mass ratio]15.4 mg/mgNormalThe Berger HospitalComment on above:Performed By: #### CMP, CRP, TSH, LIPID, CK #### [facility] [address] [address] [address] Tracy HubbardSED RATE WESTERGRENon 13-27-0988WIB RATE9 mm/hrNormal<=20The [facility] HospitalComment on above:Performed By: #### SEDR #### [facility] [address] [address] [address] Tracy Mai 40-31-3235TEW3.856 uIU/mLCritically high0.358-3.740The [facility] HospitalComment on above:Performed By: #### CMP, CRP, TSH, LIPID, CK #### [facility] [address] [address] [address] Tracy HubbardXR hip RT min 2V(w/wo pelvis)*on 51-25-7171HB hip RT min 2V(w/wo pelvis)*[facility] [employer] Other XR hip RT min 2V(w/wo pelvis)*[facility] [employer] Other XR hip RT min 2V(w/wo pelvis)*[address] [place] [address] [employer] Other XR hip RT min 2V(w/wo pelvis)*[address] [employer] Other XR hip RT min 2V(w/wo pelvis)*[facility] [employer] Other XR hip RT min 2V(w/wo pelvis)*[facility] [employer] Other XR hip RT min 2V(w/wo pelvis)*Patient: Esme Kaminski MR#: [id number] [employer] Other XR hip RT min 2V(w/wo pelvis)*[facility] [employer] Other XR hip RT min 2V(w/wo pelvis)*: 1960 Acct:[id number] [employer] Other XR hip RT min 2V(w/wo pelvis)*Age/Sex: 61 / M ADM Date: 04/12/22Rayle [employer] Other XR hip RT min 2V(w/wo pelvis)*Loc: [facility] [facility] Room: Type: [facility] [employer] Other XR hip RT min 2V(w/wo pelvis)*Attending Dr: Jonathan Samano PRComAbility [employer] Other XR hip RT min 2V(w/wo pelvis)*Copies to: Jonathan Samano MDRayle [employer] Other XR hip RT min 2V(w/wo pelvis)*Ordering Provider: Jonathan Samano MDRayle [employer] Other XR hip RT min 2V(w/wo pelvis)*Date of Service: 04/12/22Rayle [employer] Other XR hip RT min 2V(w/wo pelvis)* XR/XR hip RT min 2V(w/wo pelvis)*: Right hip painRayle [employer] Other XR hip RT min 2V(w/wo pelvis)*RIGHT HIP - 2 views: [employer] Other XR hip RT min 2V(w/wo pelvis)*CLINICAL HISTORY: Low back pain that radiates to right hip for years. No known injury.[employer] Other XR hip RT min 2V(w/wo pelvis)*COMPARISON: [facility] [employer] Other XR hip RT min 2V(w/wo pelvis)*FINDINGS: Moderate degenerative changes of the right hip without acute bony process. Left hipRayle [employer] Other XR hip RT min 2V(w/wo pelvis)*prosthesis is in place. [employer] Other XR hip RT min 2V(w/wo pelvis)* XR/XR hip RT min 2V(w/wo pelvis)*[employer] Other XR hip RT min 2V(w/wo pelvis)*IMPRESSION:[employer] Other XR hip RT min 2V(w/wo pelvis)*MODERATE DEGENERATIVE CHANGES OF THE RIGHT HIP WITHOUT ACUTE BONY PROCESS..[employer] Other XR hip RT min 2V(w/wo pelvis)*Impression dictated by: Alex Castro Jr., D.O.04/12/2022 12:57 PMNsoutheast [facility]ouri [facility] [employer] Other XR hip RT min 2V(w/wo pelvis)*Dictation Location: [id number] [employer] Other XR hip RT min 2V(w/wo pelvis)*Transcribed By: GWEN 04/12/22 [employer] Other XR hip RT min 2V(w/wo pelvis)*Dictated By: Alex Castro Jr, DO 04/12/22 [employer] Other XR hip RT min 2V(w/wo pelvis)*Signed By:[employer] Other XR hip RT min 2V(w/wo pelvis)*04/12/22 [employer] Other XR hand RT min 3V*on 30-28-5421IR hand RT min 3V* [facility] [employer] Other XR hand RT min 3V*[facility] [place] [facility] [employer] Other XR hand RT min 3V*[address] VargasRayle [employer] Other XR hand RT min 3V*DILIA Wing [address]Blymy [employer] Other XR hand RT min 3V*XRay ReportRayle [employer] Other XR hand RT min 3V*SignedRayle [employer] Other XR hand RT min 3V*Patient: Esme Kaminski MR#: [id number] [employer] Other XR hand RT min 3V*7635Rayle [employer] Other XR hand RT min 3V*: 1960 Acct:[id number] [employer] Other XR hand RT min 3V*Age/Sex: 61 / M ADM Date: 02/15/22 Rayle [employer] Other XR hand RT min 3V*Loc: [facility] [place] Room: Type: [facility] [employer] Other XR hand RT min 3V*Attending Dr: Chio Nichole MD Rayle [employer] Other XR hand RT min 3V*Copies to: Chio Nichole [facility] [employer] Other XR hand RT min 3V*Ordering Provider: Chio Nichole MDCalibrus [employer] Other XR hand RT min 3V*Date of Service: 02/15/22Rayle [employer] Other XR hand RT min 3V* XR/XR hand RT min 3V*: Right hand painTechTurn Other XR hand RT min 3V*4 viewsRIGHT hand plain filmRayle [employer] Other XR hand RT min 3V*COMPARISON:05/23/21Rayle [employer] Other XR hand RT min 3V*HISTORY:3rd metacarpal phalangeal joint pain.[facility] [employer] Other XR hand RT min 3V*Extensive 3rd metacarpophalangeal degeneration with joint space narrowing and degenerativeRayle [employer] Other XR hand RT min 3V*subluxation identified. Mild interphalangeal degenerative changes. No acute bony findings.Rayle [employer] Other XR hand RT min 3V* XR/XR hand RT min 3V*[facility] [employer] Other XR hand RT min 3V*IMPRESSION:Extensive 3rd metacarpal phalangeal degenerative change.[facility] [employer] Other XR hand RT min 3V*Impression dictated by: Matt Ferrell M.D.02/15/2022 4:53 [facility] [employer] Other XR hand RT min 3V*Dictation Location: [address] [employer] Other XR hand RT min 3V*Transcribed By: GWEN 02/15/[address] [place] [address] [employer] Other XR hand RT min 3V*Dictated By: Matt Ferrell DO 02/15/[address] [place] [address] [employer] Other XR hand RT min 3V*Signed By:[employer] Other XR hand RT min 3V*02/15/[address] [place] [address] [employer] Other XR hip LT min 2V(w/wo pelvis)*on [id number] hip LT min 2V(w/wo pelvis)*[facility] [employer] Other XR hip LT min 2V(w/wo pelvis)*[facility] [employer] Other XR hip LT min 2V(w/wo pelvis)*[address] [place] [address] [employer] Other XR hip LT min 2V(w/wo pelvis)*DILIA Wing [address]Hdgyd [employer] Other XR hip LT min 2V(w/wo pelvis)*XRay ReportRayle [employer] Other XR hip LT min 2V(w/wo pelvis)*[facility] [employer] Other XR hip LT min 2V(w/wo pelvis)*Patient: Esme Kaminski MR#: [id number] [employer] Other XR hip LT min 2V(w/wo pelvis)*7635Rayle [employer] Other XR hip LT min 2V(w/wo pelvis)*: 1960 Acct:[id number] [employer] Other XR hip LT min 2V(w/wo pelvis)*Age/Sex: 60 / M ADM Date: 09/28/21Rayle [employer] Other XR hip LT min 2V(w/wo pelvis)*Loc: [facility] Room: Type: [facility] [employer] Other XR hip LT min 2V(w/wo pelvis)*Attending Dr: Sarai Mendez II [employer] Other XR hip LT min 2V(w/wo pelvis)*Copies to: Sarai Mendez MDAhandyhand Other XR hip LT min 2V(w/wo pelvis)*Ordering Provider: Sarai Mendez MDCalibrus [employer] Other XR hip LT min 2V(w/wo pelvis)*Date of Service: 09/28/21Rayle [employer] Other XR hip LT min 2V(w/wo pelvis)* XR/XR hip LT min 2V(w/wo pelvis)*: S/P total left hip arthroplasty [employer] Other XR hip LT min 2V(w/wo pelvis)*2 views LEFT hip single view pelvisplain filmRayle [employer] Other XR hip LT min 2V(w/wo pelvis)*COMPARISON:08/17/21Rayle [employer] Other XR hip LT min 2V(w/wo pelvis)*HISTORY:Status post LEFT total hip arthroplastyRayle [employer] Other XR hip LT min 2V(w/wo pelvis)*No fracture, dislocation or focal soft tissue abnormality seen.No hardware failure or looseningRayle [employer] Other XR hip LT min 2V(w/wo pelvis)*identified.[employer] Other XR hip LT min 2V(w/wo pelvis)* XR/XR hip LT min 2V(w/wo pelvis)*[employer] Other XR hip LT min 2V(w/wo pelvis)*IMPRESSION:Stable LEFT hip arthroplasty.[employer] Other XR hip LT min 2V(w/wo pelvis)*Impression dictated by: Matt Ferrell M.D.09/28/2021 1:11 [facility] [employer] Other XR hip LT min 2V(w/wo pelvis)*Dictation Location: [id number] [employer] Other XR hip LT min 2V(w/wo pelvis)*Transcribed By: PWS 09/28/21 [facility] Other XR hip LT min 2V(w/wo pelvis)*Dictated By: Matt Ferrell DO 09/28/21 [facility] min 2V(w/wo pelvis)*Signed By:[employer] Other XR hip LT min 2V(w/wo pelvis)*09/28/21 [facility] [employer] Other Laboratory - Hematology and Cell countson 06-02-2009 Lymphocytes/100 WBC (Bld)14 %[facility] HospitalNeutrophils/100 WBC (Bld)12 %0 - 25 %[facility] ClinicNo Panel Informationon 05-51-1411Leotzse, SFSlightly turbid AbnormalCLEARCleveland ClinicColor, SFSlightly bloodyAbnormalYELAnnapolis Clinic Macro%, SF26 %[facility] ClinicMono%, SF24 %[facility]ruder HospitalRBC, [id number] /uL [facility] ClinicReac%, SF6 %[facility] ClinicSite, SFUnknownCmadison healthand ClinicSlide Number [id number] ClinicSupernatant Clarity, SFUnable to assay. Quantity not sufficient.AbnormalCLEARCleveland ClinicSupernatant Color, SFUnable to assay. Quantity not sufficient.AbnormalYELNorwalk Memorial Hospitalynovial CL%18 % [place] [facility] Hospitalynovial CommentCount may be inaccurate due to Clumped on chamber Cellular disintegrationNorwalk Memorial Hospitalynovial Pathologist InterpretationTest Not IndicatedCleMain Campus Medical CenterTotal Nucleated Cells, SF200 /uLMagruder Hospital Vital Signs Date TimeVital SignValuePerforming [id number] 23:00-0500 Diastolic blood lrhojnbr92 mm[Hg]Vitaliy [employer] DO Work Phone: [facility]11-11-2025 23:00-0500 Heart rate72 /minBenjamin Ball DO Work Phone: [facility]11-11-2025 23:00-0500 Respiratory rate20 /minBenjamin Ball DO Work Phone: [facility]11-11-2025 23:00-0500 SaO2% (BldA) [Mass fraction]98 %Vitaliy Ball DO Work Phone: [facility]11-11-2025 23:00-0500 Systolic blood alnqzajh609 mm[Hg]Vitaliy Ball DO Work Phone: [facility]11-11-2025 17:18-0500 Body nlpqem20.95 cmBenjamin Ball DO Work Phone: 1419)[address] [place], [place] 5021111-11-2025 17:18-0500 Body aauwfr149 kgBenjamin Ball DO Work Phone: 1419)[address] [place], [place] 5021111-11-2025 17:12-0500 Body xeezzctuioz96 [degF]Vitaliy Ball DO Work Phone: 1(419)[address] [place], [place] 5021111-11-2025 15:30-0500 Body ppwtyz558.8 cmBenjamin Ball DO Work Phone: 1(419)[address] [place], [place] 5021111-11-2025 15:30-0500 Body mass index (BMI) [Ratio]31.7 kg/y5Mdicbmtu Ball DO Work Phone: 1(419)[address] [place], [place] 5021111-11-2025 15:30-0500 Body adkfkd239.24 kgBenjamin Ball DO Work Phone: 1(419)[address] [place], [place] 5021111-11-2025 15:30-0500 Diastolic blood mm[Hg]Vitaliy Ball DO Work Phone: 1(419)[address] [place], [place] 5021111-11-2025 15:30-0500 Heart rate84 /minBenjamin Ball DO Work Phone: 1(419)[address] [place], [place] 5021111-11-2025 15:30-0500 Respiratory rate14 /minBenjamin Ball DO Work Phone: 1(419)[address] [place], [place] 5021111-11-2025 15:30-0500 SaO2% (BldA) [Mass fraction]96 %Vitaliy Ball DO Work Phone: 1(419)[address] [place], [place] 5021111-11-2025 15:30-0500 Systolic blood mm[Hg]Vitaliy Ball DO Work Phone: 1(419)[address] [place], [place] 5021110-27-2025 13:55-0400 Body .8 cmBenjamin Ball DO Work Phone: 1419)[address] [place], [place] 5021110-27-2025 13:55-0400 Body mass index (BMI) [Ratio]31 kg/i3Zafrvscx Ball DO Work Phone: 1(637)[address] [place], [place] 5021110-27-2025 13:55-0400 Body .6 [degF]Vitaliy Ball DO Work Phone: 1419)[address] [place], [place] 5021110-27-2025 13:55-0400 Body craxam79.14 kgBenjamin Ball DO Work Phone: 1419)[address] [place], [place] 5021110-27-2025 13:55-0400 Diastolic blood zhkhawkg72 mm[Hg]Vitaliy Ball DO Work Phone: [address] [place], [place] 5021110-27-2025 13:55-0400 Heart rate85 /minBenjamin Ball DO Work Phone: [address] [place], [place] 5021110-27-2025 13:55-0400 SaO2% (BldA) [Mass fraction]97 %Vitaliy Ball DO Work Phone: 1419)[address] [place], [place] 5021110-27-2025 13:55-0400 Systolic blood hniccadv093 mm[Hg]Vitaliy Ball DO Work Phone: 1(215)[address] [place], [place] 5021110-24-2025 08:08-0400 Diastolic blood frkcorqo88 mm[Hg]Diogo Edge MD Work Phone: 1(216)[address] [place], [place] 1752910-24-2025 08:08-0400 Heart rate69 /Sisi Edge MD Work Phone: 1(216)[address] [place], [place] 1752910-24-2025 08:08-0400 Respiratory rate17 /Sisi Edge MD Work Phone: 1(216)[address] [place], [place] 1752910-24-2025 08:08-0400 SaO2% (BldA) [Mass fraction]97 %Diogo Edge MD Work Phone: 1216)[address] [place], [place] 1752910-24-2025 08:08-0400 Systolic blood mgtghtso222 mm[Hg]Diogo Edge MD Work Phone: 1216)844-[address] [place], [place] 2152310-24-2025 02:15-0400 Body ajougkusvhy12.01 [degF]Diogo Edge MD Work Phone: 1216)9-[address] [place], [place] 2152310-24-2025 01:41-0400 Body qaxpdc288.8 Sandra Edge MD Work Phone: 1(216)[address]10-24-2025 01:41-0400 Body mass index (BMI) [Ratio]30.42 kg/m2Diogo Edge MD Work Phone: 1216)[address]10-24-2025 01:41-0400 Body awljzc12.16 kgDiogo Edge MD Work Phone: 1216)[address]10-23-2025 22:39-0400 Diastolic blood mm[Hg]Vitaliy Ball DO Work Phone: 1(863)731-34[facility]10-23-2025 22:39-0400 Heart rate77 /minBenjamin Ball DO Work Phone: 1(792)514-[address] [place], [place] 1137710-23-2025 22:39-0400 Respiratory rate20 /minBenjamin Ball DO Work Phone: 1(001)478-43[facility]10-23-2025 22:39-0400 SaO2% (BldA) [Mass fraction]96 %Vitaliy Ball DO Work Phone: 1(364)940-77[facility]10-23-2025 22:39-0400 Systolic blood lkizozep952 mm[Hg]Vitaliy Ball DO Work Phone: 1(910)293-94[facility]10-23-2025 17:41-0400 Body .8 cmBenjamin Ball DO Work Phone: 1(402)387-24[facility]10-23-2025 17:41-0400 Body .2 [degF]Vitaliy Ball DO Work Phone: 1(459)369-60[facility]10-23-2025 17:41-0400 Body tloiqp43.95 kgBenjamin Ball DO Work Phone: 1(419)[address] [place], [place] 5021110-21-2025 21:40-0400 Body iaskzi371.8 cmBenjamin Ball DO Work Phone: 1419)[address] [place], [place] 5021110-21-2025 21:40-0400 Body .06 kgBenjamin Ball DO Work Phone: 1419)[address] [place], [place] 5021110-06-2025 14:31-0400 Body goeggi483.07 cmBenjamin Ball DO Work Phone: 1(419)[address] [place], [place] 5021110-06-2025 14:31-0400 Body mass index (BMI) [Ratio]30.4 kg/b2Qlqkxwbw Ball DO Work Phone: 1419)[address] [place], [place] 5021110-06-2025 14:31-0400 Body skrjuf30.74 kgBenjamin Ball DO Work Phone: 1419)[address] [place], [place] 5021110-06-2025 14:31-0400 Diastolic blood ewfvjfja45 mm[Hg]Vitaliy Ball DO Work Phone: 1(419)[address] [place], [place] 5021110-06-2025 14:31-0400 Heart rate80 /minBenjamin Ball DO Work Phone: 1419)[address] [place], [place] 5021110-06-2025 14:31-0400 Respiratory rate12 /minBenjamin Ball DO Work Phone: 1419)[address] [place], [place] 5021110-06-2025 14:31-0400 Systolic blood iikjopce023 mm[Hg]Vitaliy Ball DO Work Phone: 1(419)[address] [place], [place] 5021110-01-2025 13:30-0400 Body hzznel240.07 cmBenjamin Ball DO Work Phone: 1419)[address] [place], [place] 5021110-01-2025 13:30-0400 Body mass index (BMI) [Ratio]31.3 kg/v5Qhklcwds Ball DO Work Phone: 1419)[address] [place], [place] 5021110-01-2025 13:30-0400 Body iynisy219.41 kgBenjamin Ball DO Work Phone: 1(121)813-[address] [place], [place] 1137710-01-2025 13:30-0400 Diastolic blood iqmtlfgx41 mm[Hg]Vitaliy Ball DO Work Phone: 1(186)[address]10-01-2025 13:30-0400 Heart rate61 /minBenjamin Ball DO Work Phone: 1419)[address]10-01-2025 13:30-0400 Systolic blood nseczbtn746 mm[Hg]Vitaliy Ball DO Work Phone: 1(470)[address]09-19-2025 09:43-0400 Body woeujk794.07 cmBenjamin Ball DO Work Phone: 1(317)[address]09-19-2025 09:43-0400 Body mass index (BMI) [Ratio]31.3 kg/g7Oflmicrt Ball DO Work Phone: 1(364)[address] [place], [place] 5021109-19-2025 09:43-0400 Body .41 kgBenjamin Ball DO Work Phone: 1(984)[address] [place], [place] 5021109-19-2025 09:43-0400 Diastolic blood oxdiyecg32 mm[Hg]Vitaliy Ball DO Work Phone: 1(595)[address] [place], [place] 5021109-19-2025 09:43-0400 Heart rate76 /minBenjamin Ball DO Work Phone: 1(623)[address] [place], [place] 5021109-19-2025 09:43-0400 Respiratory rate12 /minBenjamin Ball DO Work Phone: 1(275)[address]09-19-2025 09:43-0400 Systolic blood loeihrbb366 mm[Hg]Vitaliy Ball DO Work Phone: 1(823)[address]09-15-2025 11:25-0400 Body birpml933.1 cmAntonio Steele MD Work Phone: [facility]09-15-2025 11:25-0400 Body mass index (BMI) [Ratio]31.69 kg/m3Igmhjdc Traboulssi MD Work Phone: [facility]09-15-2025 11:25-0400 Body gqwdul410.61 kgAntonio Steele MD Work Phone: [address] [place], [place] 2085409-15-2025 11:25-0400 Diastolic blood ulimkfaa87 mm[Hg]Antonio Steele MD Work Phone: [address] [place], [place] 2085409-15-2025 11:25-0400 Heart rate62 /Giuliano Steele MD Work Phone: [address] [place], [place] 2085409-15-2025 11:25-0400 Systolic blood njvpnocq164 mm[Hg]Antonio Steele MD Work Phone: [facility]09-08-2025 14:53-0400 Body .8 cmJenniferjay [facility]-08-2025 14:53-0400Body mass index (BMI) [Ratio]32.14 kg/u4Amaygg [facility]09-08-2025 14:53-0400Body wgzawv776.61 kgJenniferjay Harleyrow [facility]09-08-2025 14:53-0400Diastolic blood jbtvzajl86 mm[Hg]Keila Radha [facility]09-08-2025 14:53-0400 Heart rate74 /minKeila Garcia [facility]09-08-2025 14:53-0400Systolic blood ozbcctwj355 mm[Hg]Keila Garcia [facility]09-05-2025 08:00-0400Diastolic blood dzdfcadn98 mm[Hg]Vitaliy Ball DO Work Phone: [facility]09-05-2025 08:00-0400 Heart rate77 /minBenjamin Ball DO Work Phone: [facility]09-05-2025 08:00-0400 Respiratory rate16 /minBenjamin Ball DO Work Phone: 1(276)032-18[facility]09-05-2025 08:00-0400 SaO2% (BldA) [Mass fraction]98 %Vitaliy Ball DO Work Phone: 1(741)[address] [place], [place] 5021109-05-2025 08:00-0400 Systolic blood dypxzjmz149 mm[Hg]Vitaliy Ball DO Work Phone: [address] [place], [place] 5021109-05-2025 06:00-0400 Body ixhfog33 kgBenjamin Ball DO Work Phone: 1(616)[address] [place], [place] 5021109-05-2025 04:00-0400 Body gexcnjtzhnv33.9 [degF]Vitaliy Ball DO Work Phone: 1(272)[address] [place], [place] 5021109-04-2025 12:53-0400 Body jiincl644.07 cmBenjamin Ball DO Work Phone: 1(684)[address] [place], [place] 5021108-13-2025 12:44-0400 Body .8 cmAntonio Steele MD Work Phone: 1(009)[address]08-13-2025 12:44-0400 Body mass index (BMI) [Ratio]32.71 kg/x7SzcrncnAntonio Steele MD Work Phone: 1(679)[address]08-13-2025 12:44-0400 Body gufbcf810.42 kgAntonio Steele MD Work Phone: 1(961)414[address]08-13-2025 12:44-0400 Diastolic blood qunmihpj54 mm[Hg]Antonio Steele MD Work Phone: 1(592)[address] [place], [place] 5265008-13-2025 12:44-0400 Heart rate98 /Giuliano Steele MD Work Phone: 1(516)[address]08-13-2025 12:44-0400 Systolic blood geaobfnq009 mm[Hg]Antonio Steele MD Work Phone: 1(439)219-[address] [place], [place] 5265007-17-2025 14:28-0400 Diastolic blood tzjsaehm07 mm[Hg]Vitaliy Ball DO Work Phone: 1(788)[address] [place], [place] 5021107-17-2025 14:28-0400 Systolic blood uxcvmvon910 mm[Hg]Vitaliy Ball DO Work Phone: [address] [place], [place] 5021107-02-2025 13:58-0400 Body pgvqen440.8 cmBenjamin Ball DO Work Phone: 1419)[address] [place], [place] 5021107-02-2025 13:58-0400 Body mass index (BMI) [Ratio]32 kg/i6Hnxicxul Ball DO Work Phone: 1419)[address] [place], [place] 5021107-02-2025 13:58-0400 Body pmiqsh833.15 kgBenjamin Ball DO Work Phone: 1419)[address] [place], [place] 5021107-02-2025 13:58-0400 Diastolic blood nugbpidw84 mm[Hg]Vitaliy Ball DO Work Phone: 1419)[address] [place], [place] 5021107-02-2025 13:58-0400 Heart daet672 /minBenjamin Ball DO Work Phone: 1(354)[address] [place], [place] 5021107-02-2025 13:58-0400 Respiratory rate12 /minBenjamin Ball DO Work Phone: 1(296)[address] [place], [place] 5021107-02-2025 13:58-0400 SaO2% (BldA) [Mass fraction]98 %Vitaliy Ball DO Work Phone: 1(396)[address] [place], [place] 5021107-02-2025 13:58-0400 Systolic blood pmwpilgl791 mm[Hg]Vitaliy Ball DO Work Phone: 1(674)[address] [place], [place] 5021106-25-2025 11:14-0400 Diastolic blood mm[Hg]Vitaliy Ball DO Work Phone: 1(422)[address] [place], [place] 5021106-25-2025 11:14-0400 Heart rate97 /minBenjamin Ball DO Work Phone: 1(357)[address] [place], [place] 5021106-25-2025 11:14-0400 Respiratory rate18 /minBenjamin Ball DO Work Phone: 1419)[address] [place], [place] 5021106-25-2025 11:14-0400 SaO2% (BldA) [Mass fraction]95 %Vitaliy Ball DO Work Phone: 1419)[address] [place], [place] 5021106-25-2025 11:14-0400 Systolic blood mm[Hg]Vitaliy Ball DO Work Phone: 1(419)[address] [place], [place] 5021106-25-2025 11:05-0400 Body mjkxeu489.8 cmBenjamin Ball DO Work Phone: 1(419)[address] [place], [place] 5021106-25-2025 08:25-0400 Body ssfoifrbozo19.9 [degF]Vitaliy Ball DO Work Phone: 1419)[address] [place], [place] 5021106-25-2025 05:45-0400 Body .5 kgBenjamin Ball DO Work Phone: 1(419)[address] [place], [place] 5021106-23-2025 17:10-0400 Diastolic blood mm[Hg]Vitaliy Ball DO Work Phone: 1(419)[address] [place], [place] 5021106-23-2025 17:10-0400 Heart rate84 /minBenjamin Ball DO Work Phone: 1419)[address] [place], [place] 5021106-23-2025 17:10-0400 SaO2% (BldA) [Mass fraction]98 %Vitaliy Ball DO Work Phone: 1(419)[address] [place], [place] 5021106-23-2025 17:10-0400 Systolic blood dernisib372 mm[Hg]Vitaliy Ball DO Work Phone: 1419)[address] [place], [place] 5021106-23-2025 16:15-0400 Body jdbcyakvcjc11.7 [degF]Vitaliy Ball DO Work Phone: 1(419)[address] [place], [place] 5021106-23-2025 15:14-0400 Respiratory rate17 /minBenjamin Ball DO Work Phone: 1419)[address] [place], [place] 5021106-23-2025 03:31-0400 Body sfjdge248.34 cmBenjamin Ball DO Work Phone: 1(742)[address]06-23-2025 03:31-0400 Body ufepzs552.2 kgBenjamin Ball DO Work Phone: 1(411)[address]06-03-2025 12:50-0400 Diastolic blood slubdhdo69 mm[Hg]Vitaliy Ball DO Work Phone: 1(153)[address]06-03-2025 12:50-0400 Heart rate80 /minBenjamin Ball DO Work Phone: 1(022)[address]06-03-2025 12:50-0400 Respiratory rate25 /minBenjamin Ball DO Work Phone: 1(719)[address]06-03-2025 12:50-0400 SaO2% (BldA) [Mass fraction]96 %Vitaliy Ball DO Work Phone: 1(226)23[address]06-03-2025 12:50-0400 Systolic blood fpbbwpyj15 mm[Hg]Vitaliy Ball DO Work Phone: 1(005)[address] [place], [place] 5021106-03-2025 10:10-0400 Inhaled oxygen flow rate3 L/minBenjamin Ball DO Work Phone: 1(751)[address] [place], [place] 5021106-02-2025 12:00-0400 Body zbenqq131.07 cmBenjamin Ball DO Work Phone: 1(587)[address]06-02-2025 12:00-0400 Body kgBenjamin Ball DO Work Phone: 1(784)[address]05-16-2025 08:59-0400 Body pfiqyp911.1 cmAntonio Steele MD Work Phone: [facility]05-16-2025 08:59-0400 Body mass index (BMI) [Ratio]32.82 kg/y8QjzbmhmAntonio Steele MD Work Phone: [facility]05-16-2025 08:59-0400 Body .23 kgAntonio Steele MD Work Phone: [facility]05-16-2025 08:59-0400 Diastolic blood nqisnnww28 mm[Hg]Antonio Steele MD Work Phone: [facility]05-16-2025 08:59-0400 Heart rate95 /Giuliano Steele MD Work Phone: [facility]05-16-2025 08:59-0400 Systolic blood saqgzzmf417 mm[Hg]Antonio Steele MD Work Phone: [facility]05-13-2025 16:08-0400 Body .8 cmBenjamin Ball DO Work Phone: 1(932)748-[address] [place], [place] 1137705-13-2025 16:08-0400 Body mass index (BMI) [Ratio]32.8 kg/l2Pdvoqvht Ball DO Work Phone: 1(470)799-[address] [place], [place] 1137705-13-2025 16:08-0400 Body wpidxt085 kgBenjamin Ball DO Work Phone: 1(862)[address]05-13-2025 16:08-0400 Diastolic blood ahnrjkwq51 mm[Hg]Vitaliy Ball DO Work Phone: 1(419)072-[address] [place], [place] 1137705-13-2025 16:08-0400 Heart rate98 /minBenjamin Ball DO Work Phone: 1(353)486-[address] [place], [place] 1137705-13-2025 16:08-0400 Respiratory rate12 /minBenjamin Ball DO Work Phone: 1(061)141-[address] [place], [place] 1137705-13-2025 16:08-0400 SaO2% (BldA) [Mass fraction]97 %Vitaliy Ball DO Work Phone: 1(997)672-[address] [place], [place] 1137705-13-2025 16:08-0400 Systolic blood cgpiqlxw11 mm[Hg]Vitaliy Ball DO Work Phone: 1(869)446-[address] [place], [place] 1137705-07-2025 11:52-0400 Diastolic blood bxzjsodm82 mm[Hg]Vitaliy Ball DO Work Phone: 1(214)532-[address] [place], [place] 1137705-07-2025 11:52-0400 Heart rate85 /minBenjamin Ball DO Work Phone: 1(282)451-[address] [place], [place] 1137705-07-2025 11:52-0400 Respiratory rate18 /minBenjamin Ball DO Work Phone: 1(585)420-[address] [place], [place] 1137705-07-2025 11:52-0400 SaO2% (BldA) [Mass fraction]95 %Vitaliy Ball DO Work Phone: 1(138)[address]05-07-2025 11:52-0400 Systolic blood scsnhtco569 mm[Hg]Vitaliy Ball DO Work Phone: 1(453)[address]05-07-2025 07:33-0400 Body ijzawpsgqoo93.5 [degF]Vitaliy Ball DO Work Phone: 1(981)[address]05-07-2025 05:12-0400 Body .5 kgBenjamin Ball DO Work Phone: 1(181)[address] [place], [place] 5021105-06-2025 15:39-0400 Body vktatf448.8 cmBenjamin Ball DO Work Phone: 1(793)[address] [place], [place] 5021105-05-2025 11:49-0400 Diastolic blood oaybztts18 mm[Hg]Vitaliy Ball DO Work Phone: 1(748)310-[address] [place], [place] 1137705-05-2025 11:49-0400 Heart suem032 /minBenjamin Ball DO Work Phone: 1(284)841-[address] [place], [place] 1137705-05-2025 11:49-0400 Systolic blood cbcvcibi630 mm[Hg]Vitaliy Ball DO Work Phone: 1(461)822-[address] [place], [place] 1137705-05-2025 11:44-0400 Respiratory rate16 /minBenjamin Ball DO Work Phone: 1(529)086-[address] [place], [place] 1137705-05-2025 11:44-0400 SaO2% (BldA) [Mass fraction]91 %Vitaliy Ball DO Work Phone: 1419)[address] [place], [place] 5021105-05-2025 10:03-0400 Body .8 cmBenjamin Ball DO Work Phone: 1(419)[address] [place], [place] 5021105-05-2025 10:03-0400 Body .1 [degF]Vitaliy Ball DO Work Phone: 1(419)[address] [place], [place] 5021105-05-2025 10:03-0400 Body eybenn132.9 kgBenjamin Ball DO Work Phone: 1419)[address] [place], [place] 5021104-30-2025 12:00-0400 Body zrtvuc163.8 cmBenjamin Ball DO Work Phone: 1(419)[address] [place], [place] 5021104-30-2025 12:00-0400 Body mass index (BMI) [Ratio]33.5 kg/e0Xhelsifp Ball DO Work Phone: 1419)[address] [place], [place] 5021104-30-2025 12:00-0400 Body wfgiut412.14 kgBenjamin Ball DO Work Phone: 1(872)[address] [place], [place] 5021104-25-2025 11:09-0400 Body ucjnqz915.8 cmBenjamin Ball DO Work Phone: [phone])[address] [place], [place] 5021104-25-2025 11:09-0400 Body yratgrtdvnm05 [degF]Vitaliy Ball DO Work Phone: 1(419)[address] [place], [place] 5021104-25-2025 11:09-0400 Body .7 kgBenjamin Ball DO Work Phone: [phone])[address] [place], [place] 5021104-25-2025 11:09-0400 Diastolic blood ynylcwki11 mm[Hg]Vitaliy Ball DO Work Phone: 1419)[address] [place], [place] 5021104-25-2025 11:09-0400 Heart rate61 /minBenjamin Ball DO Work Phone: [address] [place], [place] 5021104-25-2025 11:09-0400 Respiratory rate18 /minBenjamin Ball DO Work Phone: 1(419)[address] [place], [place] 5021104-25-2025 11:09-0400 SaO2% (BldA) [Mass fraction]95 %Vitaliy Ball DO Work Phone: 1(419)[address] [place], [place] 5021104-25-2025 11:09-0400 Systolic blood kdzfsidx055 mm[Hg]Vitaliy Ball DO Work Phone: 1(419)[address] [place], [place] 5021104-23-2025 10:00-0400 Body jhhijy317.34 cmBenjamin Ball DO Work Phone: 1(419)[address] [place], [place] 5021104-23-2025 10:00-0400 Body mass index (BMI) [Ratio]32.8 kg/a8Ybresekw Ball DO Work Phone: 1(419)[address] [place], [place] 5021104-23-2025 10:00-0400 Body eiwtew655.59 kgBenjamin Ball DO Work Phone: 1(419)[address] [place], [place] 5021104-23-2025 10:00-0400 Diastolic blood ytakczca28 mm[Hg]Vitaliy Ball DO Work Phone: 1(419)[address] [place], [place] 5021104-23-2025 10:00-0400 Heart rate75 /minBenjamin Ball DO Work Phone: 1(419)[address] [place], [place] 5021104-23-2025 10:00-0400 Respiratory rate12 /minBenjamin Ball DO Work Phone: 1(419)[address] [place], [place] 5021104-23-2025 10:00-0400 Systolic blood ukxdoghw601 mm[Hg]Vitaliy Ball DO Work Phone: 1(419)[address] [place], [place] 5021103-25-2025 13:36-0400 Body umghvc775.34 cmBenjamin Ball DO Work Phone: 1(419)[address] [place], [place] 5021103-25-2025 13:36-0400 Body mass index (BMI) [Ratio]33.6 kg/w6Nzpgirsy Ball DO Work Phone: 1(419)[facility]40[facility]03-25-2025 13:36-0400 Body mdtxyl476.31 kgBenjamin Ball DO Work Phone: [facility]03-25-2025 13:36-0400 Diastolic blood yaqjcpll45 mm[Hg]Vitaliy Ball DO Work Phone: [facility]03-25-2025 13:36-0400 Heart ffjm411 /minBenjamin Ball DO Work Phone: [facility]03-25-2025 13:36-0400 Respiratory rate12 /minBenjamin Ball DO Work Phone: [facility]03-25-2025 13:36-0400 Systolic blood laehvprn236 mm[Hg]Vitaliy Ball DO Work Phone: [facility]03-24-2025 09:38-0400 Body mass index (BMI) [Ratio]33.37 kg/v1CvhvcwwsHeladio Pineda MD Work Phone: [facility]03-24-2025 09:38-0400Body vugzzj850 kg Heladio Pineda MD Work Phone: [facility]03-24-2025 09:38-0400Diastolic blood zubtciwa68 mm[Hg]Heladio Pineda MD Work Phone: [phone]03-24-2025 09:38-0400Heart rate81 /min Heladio Pineda MD Work Phone: [phone]03-24-2025 09:38-0400Systolic blood fxpuxjxj699 mm[Hg]Heladio Pineda MD Work Phone: [facility]01-24-2025 14:11-0500Body vjgpeg141.34 [facility]01-24-2025 14:11-0500Body mass index (BMI) [Ratio]33.2 kg/c5VgyuuwdgrBrecksville [facility]01-24-2025 14:11-0500Body jlokbw549.06 kgB[facility]01-24-2025 14:11-0500Diastolic blood zxjasqff71 mm[Hg][facility]01-24-2025 14:11-0500 Heart mixx190 /[facility]01-24-2025 14:11-[address] [facility]01-24-2025 14:11-0500 Systolic blood sbcsgywr322 mm[Hg][facility]12-09-2024 15:30-0500Body nfheto709.34 cmB[facility]12-09-2024 15:30-0500Body mass index (BMI) [Ratio]32.9 kg/s5WwtyapvjzBrecksville Va [facility]12-09-2024 15:30-0500Body tzxubjftlrh38.3 [degF][facility]12-09-2024 15:30-0500Body tmbezo924.16 kgB[facility]12-09-2024 15:30-0500Diastolic blood mm[Hg][facility]12-09-2024 15:30-0500Heart wiqh518 /[facility]12-09-2024 15:30-0500Respiratory rate12 [facility]12-09-2024 15:30-0500Systolic blood vvzirdhz064 mm[Hg][facility]11-07-2024 13:51-0500Body mslgza026.8 cmAntonio Steele MD Work Phone: [facility]11-07-2024 13:51-0500 Body mass index (BMI) [Ratio]35.01 kg/f4PdgebheAntonio Steele MD Work Phone: [facility]11-07-2024 13:51-0500 Body eznqcl270.68 kgAntonio Steele MD Work Phone: [facility]11-07-2024 13:51-0500 Diastolic blood orvcutim29 mm[Hg]Antonio Steele MD Work Phone: [facility]11-07-2024 13:51-0500 Systolic blood fsbqgqua835 mm[Hg]Antonio Steele MD Work Phone: [facility]10-22-2024 13:21-0400 Diastolic blood jmhfotlt47 mm[Hg]Bird Kowalski MD Work Phone: [facility]10-22-2024 13:21-0400 Heart rate67 /John Kowalski MD Work Phone: [phone])[phone]10-22-2024 13:21-0400 Respiratory rate15 /John Kowalski MD Work Phone: [phone])349-[facility]10-22-2024 13:21-0400 SaO2% (BldA) [Mass fraction]95 %Bird Kowalski MD Work Phone: [facility]10-22-2024 13:21-0400 Systolic blood bzjstxoc919 mm[Hg]Bird Kowalski MD Work Phone: [phone]10-22-2024 09:49-0400 Body axktmw536.1 Taryn Kowalski MD Work Phone: [facility]10-22-2024 09:49-0400 Body mass index (BMI) [Ratio]34.6 kg/r8JnlulrBird Kowalski MD Work Phone: [phone]10-22-2024 09:49-0400 Body csyubt185 kgBird Kowalski MD Work Phone: [phone]09-23-2024 13:42-0400 Diastolic blood ipphqxru95 mm[Hg]DO Vitaliy Ball Work Phone: [facility]09-23-2024 13:42-0400 Heart rate70 /minDSary Brower Work Phone: [facility]09-23-2024 13:42-0400 Respiratory rate16 /PernellO Vitaliy Ball Work Phone: [facility]09-23-2024 13:42-0400 SaO2% (BldA) [Mass fraction]98 %DO Vitaliy Brower Work Phone: [facility]09-23-2024 13:42-0400 Systolic blood aqonfkpb809 mm[Hg]DO Vitaliy Brower Work Phone: [facility]09-23-2024 10:41-0400 Body bzajzh855.07 cmDO Vitaliy Brower Work Phone: [facility]09-23-2024 10:41-0400 Body dojnps752.23 kgDO Vitaliy Brower Work Phone: [facility]09-11-2024 10:00-0400 Body zrdrfo720.1 Taryn Kowalski MD Work Phone: [facility]09-11-2024 10:00-0400 Body mass index (BMI) [Ratio]34.52 kg/p4KarllvBird Kowalski MD Work Phone: [facility]09-11-2024 10:00-0400 Body erzxbjeqkdl18.5 [degF]Bird Kowalski MD Work Phone: [facility]09-11-2024 10:00-0400 Body qgplyz507.68 kgBird Kowalski MD Work Phone: [facility]09-11-2024 10:00-0400 Diastolic blood ensjxgvy83 mm[Hg]Bird Kowalski MD Work Phone: [facility]09-11-2024 10:00-0400 Heart rate73 /John Kowalski MD Work Phone: [facility]09-11-2024 10:00-0400 Respiratory rate16 /John Kowalski MD Work Phone: [facility]09-11-2024 10:00-0400 SaO2% (BldA) [Mass fraction]95 %Bird Kowalski MD Work Phone: [facility]09-11-2024 10:00-0400 Systolic blood zlcbhqey325 mm[Hg]Bird Kowalski MD Work Phone: [facility]08-12-2024 14:26-0400 Body faxvys634.64 cmDO Vitaliy Ball Work Phone: [phone]08-12-2024 14:26-0400 Body mass index (BMI) [Ratio]37.8 kg/m2DO Vitaliy Ball Work Phone: [facility]08-12-2024 14:26-0400 Body dqastv234.31 kgDO Vitaliy Ball Work Phone: [phone]08-12-2024 14:26-0400 Diastolic blood priybrgk87 mm[Hg]DO Vitaliy Ball Work Phone: [phone]08-12-2024 14:26-0400 Heart rate80 /minDO Vitaliy Ball Work Phone: [phone]08-12-2024 14:26-0400 Respiratory rate12 /minDO Vitaliy Ball Work Phone: [phone]08-12-2024 14:26-0400 Systolic blood ifiecbsn996 mm[Hg]DO Vitaliy Ball Work Phone: [facility]07-11-2024 14:32-0400 Body mass index (BMI) [Ratio]33.95 kg/b8QjzakpyAntonio Steele MD Work Phone: [facility]07-11-2024 14:32-0400 Body fqntfe463.86 kgAntonio Steele MD Work Phone: [facility]07-11-2024 14:32-0400 Diastolic blood gkwlydhj65 mm[Hg]Antonio Steele MD Work Phone: [facility]07-11-2024 14:32-0400 Heart rate82 /minAntonio Steele MD Work Phone: [facility]07-11-2024 14:32-0400 Systolic blood nzvabktl946 mm[Hg]Antonio Steele MD Work Phone: [facility]05-31-2024 13:17-0400 Body .64 cmDO Vitaliy Ball Work Phone: 1(670)[address]05-31-2024 13:17-0400 Body mass index (BMI) [Ratio]38.5 kg/m2DO Vitaliy Ball Work Phone: 1([phone])[address]05-31-2024 13:17-0400 Body .12 kgDO Vitaliy Ball Work Phone: 1(610)[address]05-31-2024 13:17-0400 Diastolic blood wocrbawn98 mm[Hg]DO Vitaliy Ball Work Phone: 1(264)[address]05-31-2024 13:17-0400 Heart rate78 /minDO Vitaliy Ball Work Phone: 1(242)[address]05-31-2024 13:17-0400 Respiratory rate12 /minDO Vitaliy Ball Work Phone: 1(718)[address]05-31-2024 13:17-0400 Systolic blood dkawlvaw936 mm[Hg]DO Vitaliy Ball Work Phone: 1(701)[address]05-25-2024 11:29-0400 Body deevllwnsuy80.8 [degF]DO Vitaliy Ball Work Phone: 1(320)613-[address] [place], [place] 1137705-25-2024 11:29-0400 Diastolic blood ertpjvtr82 mm[Hg]DO Vitaliy Ball Work Phone: 1(012)748-[address] [place], [place] 1137705-25-2024 11:29-0400 Heart rate88 /minDO Vitaliy Ball Work Phone: 1(029)148-[address] [place], [place] 1137705-25-2024 11:29-0400 Respiratory rate16 /minDO Vitaliy Ball Work Phone: 1(435)464-[address] [place], [place] 1137705-25-2024 11:29-0400 SaO2% (BldA) [Mass fraction]98 %DO Vitaliy Ball Work Phone: 1(807)[address]05-25-2024 11:29-0400 Systolic blood rzhuqvxa446 mm[Hg]DO Vitaliy Ball Work Phone: 1(302)[address] [place], [place] 5021105-25-2024 05:17-0400 Body zsbjca627 kgDO Vitaliy Ball Work Phone: [phone])[address] [place], [place] 5021105-24-2024 13:01-0400 Body lqpyhy811.8 cmDO Vitaliy Ball Work Phone: [phone])[address] [place], [place] 5021105-23-2024 22:00-0400 Diastolic blood iohpivcf27 mm[Hg]DO Vitaliy Ball Work Phone: 1(690)[address] [place], [place] 5021105-23-2024 22:00-0400 Heart rate86 /minDO Vitaliy Ball Work Phone: 1(521)[address] [place], [place] 5021105-23-2024 22:00-0400 Respiratory rate21 /minDO Vitaliy Ball Work Phone: 1(961)[address] [place], [place] 5021105-23-2024 22:00-0400 SaO2% (BldA) [Mass fraction]93 %DO Vitaliy Ball Work Phone: 1(045)[address] [place], [place] 5021105-23-2024 22:00-0400 Systolic blood mm[Hg]DO Vitaliy Ball Work Phone: 1(521)[address] [place], [place] 5021105-23-2024 20:00-0400 Body oceaexmpfnc07.8 [degF]DO Vitaliy Ball Work Phone: 1(423)[address] [place], [place] 5021105-23-2024 16:29-0400 Body .8 cmDO Vitaliy Ball Work Phone: 1(315)[address] [place], [place] 5021105-23-2024 16:29-0400 Body zzzxqo200.23 kgDO Vitaliy Ball Work Phone: 1(835)[address] [place], [place] 5021105-09-2024 11:36-0400 [facility] befnmt119.1 [facility] 11:36-0400Body mass index (BMI) [Ratio]34.52 kg/h6MtpcdaAmerican Academic Health System05-09-2024 11:36-0400Body .68 [facility]En[facility]-09-2024 11:36-0400Diastolic blood gyaddwig38 mm[Hg][facility]05-09-2024 11:36-0400 Heart rate75 /minAmerican [facility] Health System05-09-2024 11:36-0400Systolic blood undqjtfb274 mm[Hg][facility]04-25-2024 09:29-0400Inhaled oxygen flow rate3 L/minDO Vitaliy Brower Work Phone: [facility]04-25-2024 09:29-0400 SaO2% (BldA) [Mass fraction]95 %DO Vitaliy Ball Work Phone: [facility]04-24-2024 13:58-0400 Body jiyzce412.8 cmDO Vitaliy Ball Work Phone: [facility]04-24-2024 13:58-0400 Body wesxsj264 kgDO Vitaliy Inocente Work Phone: [facility]04-19-2024 11:14-0400 Diastolic blood tijvkozl72 mm[Hg]Antonio Steele MD Work Phone: 1(623)411-[address] [place], [place] 5265004-19-2024 11:14-0400 Systolic blood comfooyx786 mm[Hg]Antonio Steele MD Work Phone: 1(946)454-[address] [place], [place] 5265004-19-2024 11:13-0400 Body hsngyw760.8 cmAntonio Steele MD Work Phone: 0(001)551-[address] [place], [place] 5265004-19-2024 11:13-0400 Body mass index (BMI) [Ratio]35.15 kg/a2UizrwjcAntonio Steele MD Work Phone: [facility]04-19-2024 11:13-0400 Body jibrsw110.13 Kimberly Steele MD Work Phone: [facility]04-19-2024 11:13-0400 Heart rate91 /minAntonio Steele MD Work Phone: [facility]03-22-2024 10:00-0400 Body tqindc256.8 cmDO Vitaliy Ball Work Phone: [phone]03-22-2024 10:00-0400 Body mass index (BMI) [Ratio]35.7 kg/m2DO Vitaliy Ball Work Phone: [phone])[phone]03-22-2024 10:00-0400 Body enzjsh238.11 kgDO Vitaliy Ball Work Phone: [phone]03-22-2024 10:00-0400 Diastolic blood mm[Hg]DO Vitaliy Ball Work Phone: [phone]03-22-2024 10:00-0400 Heart rate86 /minDO Vitaliy Ball Work Phone: [phone]03-22-2024 10:00-0400 Respiratory rate12 /minDO Vitaliy Ball Work Phone: [phone]03-22-2024 10:00-0400 Systolic blood zrmlzuyg957 mm[Hg]DO Vitaliy Ball Work Phone: [phone]02-26-2024 14:08-0500 Body wjtone387.8 Alessandro Booth MD [facility]: [facility]-26-2024 14:08-0500Body mass index (BMI) [Ratio]34.15 kg/t3CiebwzSarai Booth MD Work Phone: [facility]02-26-2024 14:08-0500Body nerrsi267.96 kgSarai Booth MD Work Phone: [facility] Hywora00-20-0436 14:08-0500Diastolic blood ttluyxef33 mm[Hg]Sarai Booth MD Work Phone: [facility] WITOI Warbod50-64-2458 14:08-0500Heart rate 94 /minSarai Booth MD Work Phone: [facility]02-26-2024 14:08-9690JaX8% (BldA) [Mass fraction]94 %Sarai Booth MD Work Phone: [facility] WITOI Doxkqt94-07-3427 14:08-0500Systolic blood tbyekizp530 mm[Hg]Sarai Booth MD Work Phone: [facility]01-29-2024 11:00-0500Body iaoxgh218.8 cmSukhjinder Montesinos Other [facility]01-29-2024 11:00-0500 Body mass index (BMI) [Ratio]34.72 kg/x8SmuwtSukhjinder Montesinos Other [employer] Other 01-29-2024 11:00-0500Body azqjbm414.76 kgDO Vitaliy Ball Work Phone: [facility]01-29-2024 11:00-0500 Body uwczur133.77 kgKesaida Montesinos Other [employer] Other 01-24-2024 10:45-0500Body zacajy040.8 cmBenjamin Ball Other [facility]01-24-2024 10:45-0500 Body mass index (BMI) [Ratio]34.72 kg/a1Twrnkjqa Ball Other [employer] Other 01-24-2024 10:45-0500Body fiwbsw212.77 kgBenjamin Ball Other [employer] Other 01-24-2024 10:45-0500Body edpmtl114.76 kgDO Vitaliy Ball Work Phone: [facility]01-24-2024 10:45-0500 Diastolic blood waaxtffk81 mm[Hg]Vitaliy Ball Other [facility]01-24-2024 10:45-0500 Respiratory rate12 /minBenjamin Ball Other [employer] Other 01-24-2024 10:45-0500Systolic blood kijlnpym914 mm[Hg] Vitaliy Ball Other [facility]12-28-2023 10:15-0500 Body igpcbu624.8 cmBenjamin Ball Other [facility]12-28-2023 10:15-0500 Body mass index (BMI) [Ratio]34.29 kg/z0Yhynbgya Ball Other [employer] Other [id number] 10:15-0500Body gdsyes985.41 kgBenjamin Ball Other [employer] Other [id number] 10:15-0500Body orjmfp964.4 kgDO Vitaliy Ball Work Phone: [facility]12-28-2023 10:15-0500 Diastolic blood zzuhyydg97 mm[Hg]Vitaliy Ball Other [facility]12-28-2023 10:15-0500 Respiratory rate12 /minBenjamin Ball Other [employer] Other [phone] 10:15-0500Systolic blood mm[Hg] Vitaliy Ball Other [facility]12-07-2023 11:15-0500 Body ebsrnz569.8 cmSukhjinder Montesinos Other [address] [place], [place] 3392012-07-2023 11:15-0500 Body mass index (BMI) [Ratio]34.29 kg/x6GxwzqSukhjinder Montesinos Other [facility] [employer] Other 12-07-2023 11:15-0500Body qjecfn711.41 kgKesaida Montesinos Other [facility] [employer] Other 12-07-2023 11:15-0500Body sqjfni061.4 kgDO Vitaliy Ball Work Phone: [facility]11-27-2023 13:28-0500 Body ooeqze612.59 kgHeladio Pineda MD Work Phone: [facility]11-27-2023 13:28-0500Diastolic blood imyokmtx89 mm[Hg]Heladio Pineda MD Work Phone: [facility]11-27-2023 13:28-0500Heart rvxj290 /minHeladio Pineda MD Work Phone: [facility]11-27-2023 13:28-0500Systolic blood hzfrwgow408 mm[Hg]Heladio Pineda MD Work Phone: [facility]11-07-2023 15:00-0500Diastolic blood mm[Hg]DO Vitaliy Ball Work Phone: [facility]11-07-2023 15:00-0500 Heart rate75 /minDO Vitaliy Ball Work Phone: [facility]11-07-2023 15:00-0500 Respiratory rate16 /minDO Vitaliy Ball Work Phone: [facility]11-07-2023 15:00-0500 SaO2% (BldA) [Mass fraction]94 %DO Vitaliy Ball Work Phone: [facility]11-07-2023 15:00-0500 Systolic blood oyvlagna043 mm[Hg]DO Vitaliy Ball Work Phone: 1(419)483-[address] [place], [place] 1137711-07-2023 11:45-0500 Inhaled oxygen flow rate1 L/minDO Vitaliy Ball Work Phone: 1(418)429-[address] [place], [place] 1137711-07-2023 10:48-0500 Body cmitigxhnzi01.2 [degF]DO Vitaliy Ball Work Phone: 1([phone])[phone]11-07-2023 06:59-0500 Body jlsxoy461.07 cmDO Vitaliy Ball Work Phone: 1(800)102-[address] [place], [place] 1137711-07-2023 06:59-0500 Body mass index (BMI) [Ratio]34 kg/m2DO Vitaliy Ball Work Phone: 1(046)338-[address] [place], [place] 1137711-07-2023 06:59-0500 Body kgDO Vitaliy Ball Work Phone: 1(768)195-[address] [place], [place] 1137710-18-2023 15:15-0400 Body nyqnkh513.8 cmBenjamin Ball Other [employer] Other 10-18-2023 15:15-0400Body mass index (BMI) [Ratio] 34.32 kg/e2Cqajknxz Ball Other [employer] Other 10-18-2023 15:15-0400Body .5 kgBenjamin Ball Other [employer] Other 10-18-2023 15:15-0400Diastolic blood mm[Hg] Vitaliy Ball Other [employer] Other 10-18-2023 15:15-0400Respiratory rate12 /minBenjamin Ball Other [employer] Other 10-18-2023 15:15-0400Systolic blood yulsxjzh707 mm[Hg] Vitaliy Ball Other [employer] Other 09-29-2023 10:55-0400Body spdhyx639.1 cmHeladio Pineda MD Work Phone: [facility]09-29-2023 10:55-0400Body udoxnp979.5 kgHeladio Pineda MD Work Phone: [facility]09-29-2023 10:55-0400Diastolic blood beouwwxi31 mm[Hg]Heladio Pineda MD Work Phone: [facility]09-29-2023 10:55-0400Heart rate71 /min Heladio Pineda MD Work Phone: [facility]09-29-2023 10:55-0400Systolic blood mm[Hg]Heladio Pineda MD Work Phone: [facility]09-26-2023 10:30-0400Body dflegd162.8 cmBenjamin Ball Other [employer] Other 09-26-2023 10:30-0400Body mass index (BMI) [Ratio]34.4 kg/e2Pdgguiuy Ball Other [employer] Other 09-26-2023 10:30-0400Body ztndiy438.77 kgBenjamin Ball Other [employer] Other 09-26-2023 10:30-0400Diastolic blood cikvvylx99 mm[Hg] Vitaliy Ball Other [employer] Other 09-26-2023 10:30-0400Respiratory rate12 /minBenjamin Ball Other [employer] Other 09-26-2023 10:30-0400Systolic blood zsrgohok218 mm[Hg] Vitaliy Ball Other [employer] Other 08-07-2023 15:15-0400Body .8 cmBenjamin Ball Other [employer] Other 08-07-2023 15:15-0400Body mass index (BMI) [Ratio] 33.86 kg/r3Cewoaiio Ball Other [employer] Other 08-07-2023 15:15-0400Body uzmeyn437.05 kgBenjamin Ball Other [employer] Other 08-07-2023 15:15-0400Diastolic blood aqbpaytz71 mm[Hg] Vitaliy Ball Other [employer] Other 08-07-2023 15:15-0400Respiratory rate12 /minBenjamin Ball Other [employer] Other 08-07-2023 15:15-0400Systolic blood wckkmvab351 mm[Hg] Vitaliy Ball Other [employer] Other 07-19-2023 14:45-0400Body yjeytd982.8 cmBenjamin Ball Other [employer] Other 07-19-2023 14:45-0400Body mass index (BMI) [Ratio] 35.24 kg/o0Velfwvbp Ball Other [employer] Other 07-19-2023 14:45-0400Body temiah893.4 kgBenjamin Ball Other [employer] Other 07-19-2023 14:45-0400Diastolic blood byntqsxv26 mm[Hg] Vitaliy Ball Other [facility] [employer] Other 07-19-2023 14:45-0400Respiratory rate12 /minBenjamin Ball Other [employer] Other 07-19-2023 14:45-0400Systolic blood mm[Hg] Vitaliy Ball Other [employer] Other 07-05-2023 15:50-0400Diastolic blood txadyics31 mm[Hg] DO Vitaliy Ball Work Phone: [facility]07-05-2023 15:50-0400 Heart rate75 /minDO Vitaliy Ball Work Phone: [facility]07-05-2023 15:50-0400 Respiratory rate20 /minDO Vitaliy Ball Work Phone: [facility]07-05-2023 15:50-0400 SaO2% (BldA) [Mass fraction]95 %DO Vitaliy Ball Work Phone: [facility]07-05-2023 15:50-0400 Systolic blood cnipqgzr685 mm[Hg]DO Vitaliy Ball Work Phone: [phone]06-27-2023 08:30-0400 Body zuddsv185.8 cmBenjamin Ball Other [employer] Other 06-27-2023 08:30-0400Body mass index (BMI) [Ratio] 36.01 kg/c4Hjsjczet Ball Other [employer] Other 06-27-2023 08:30-0400Body szhbfa463.85 kgBenjamin Ball Other [employer] Other 06-27-2023 08:30-0400Diastolic blood mm[Hg] Vitaliy Ball Other [employer] Other 06-27-2023 08:30-0400Respiratory rate12 /minBenjamin Ball Other [employer] Other 06-27-2023 08:30-0400Systolic blood lwicklru479 mm[Hg] Vitaliy Ball Other [employer] Other 05-03-2023 10:00-0400Body jdbsda096.8 cmBenjamin Ball Other [employer] Other 05-03-2023 10:00-0400Body mass index (BMI) [Ratio] 36.21 kg/q8Kqclyakh Ball Other [employer] Other 05-03-2023 10:00-0400Body .49 kgBenjamin Ball Other [employer] Other 05-03-2023 10:00-0400Diastolic blood mm[Hg] Vitaliy Ball Other [employer] Other 05-03-2023 10:00-2214GtA3% (BldA) [Mass fraction]94 % Vitaliy Ball Other [employer] Other 05-03-2023 10:00-0400Systolic blood etjjmeet784 mm[Hg] Vitaliy Ball Other [employer] Other 04-21-2023 10:30-0400Body .8 cmBenjamin Ball Other [employer] Other 04-21-2023 10:30-0400Body mass index (BMI) [Ratio] 36.67 kg/x2Qnpaguws Ball Other [employer] Other 04-21-2023 10:30-0400Body lixaen757.94 kgBenjamin Ball Other [employer] Other 04-21-2023 10:30-0400Diastolic blood pvsriaiu51 mm[Hg] Vitaliy Ball Other [employer] Other 04-21-2023 10:30-0400Respiratory rate16 /minBenjamin Ball Other [employer] Other 04-21-2023 10:30-0400Systolic blood pfmxcwyk041 mm[Hg] Vitaliy Ball Other [employer] Other 02-14-2023 15:15-0500Body wwsnty936.8 cmBenjamin Ball Other [employer] Other 02-14-2023 15:15-0500Body mass index (BMI) [Ratio] 37.47 kg/c6Aygznskx Ball Other [employer] Other 02-14-2023 15:15-0500Body takyyn935.48 kgBenjamin Ball Other [employer] Other 02-14-2023 15:15-0500Diastolic blood lxymgigz40 mm[Hg] Vitaliy Ball Other [employer] Other 02-14-2023 15:15-0500Respiratory rate12 /minBenjamin Ball Other [employer] Other 02-14-2023 15:15-0500Systolic blood mudsdrtf910 mm[Hg] [facility]iy [facility] [employer] Other 02-13-2023 14:01-0500Body rusabv222.8 cmDO Vitaliy Ball Work Phone: [facility]02-13-2023 14:01-0500 Body lpygqylmeqo36 [degF]DO Vitaliy Ball Work Phone: [facility]02-13-2023 14:01-0500 Body ovorzb754.95 kgDO Vitaliy Ball Work Phone: [phone]02-13-2023 14:01-0500 Diastolic blood hbhfuhfc90 mm[Hg]DO Vitaliy Ball Work Phone: [facility]02-13-2023 14:01-0500 Heart rate77 /minDO Vitaliy Ball Work Phone: [phone]02-13-2023 14:01-0500 Respiratory rate18 /minDO Vitaliy Ball Work Phone: [facility]02-13-2023 14:01-0500 SaO2% (BldA) [Mass fraction]95 %DO Vitaliy Ball Work Phone: [facility]02-13-2023 14:01-0500 Systolic blood mm[Hg]DO Vitaliy Ball Work Phone: [facility]11-09-2022 15:00-0500 [facility] eplxhf576.8 [facility] Other [employer] Other 11-09-2022 15:00-0500Body mass index (BMI) [Ratio] 34.15 kg/q0Xcmiwrnmarsha Nichole Other [facility] [employer] Other 11-09-2022 15:00-0500Body .96 kgComarsha fruuxlida Other [employer] Other 11-07-2022 11:00-0500Body olbvgc101.8 cmThomas Felter Other [employer] Other 06-22-2022 12:15-0400Body vjuqxj494.8 cmRobert Moorings[place] II Other [employer] Other 03-11-2022 09:15-0500Body fcsucu392.8 cmRobert Moorings[place] II Other [employer] Other 03-11-2022 09:15-0500Body mass index (BMI) [Ratio] 34.15 kg/q0Tfzokg [place] II Other [employer] Other 03-11-2022 09:15-0500Body fynoak378.96 kgRobert Moorings[place] II Other [employer] Other 11-16-2021 15:45-0500Body cnlros700.8 cmThomas Felter Other [employer] Other 11-16-2021 15:45-0500Body mass index (BMI) [Ratio] 34.43 kg/h8Bttjik Felter Other [employer] Other 11-16-2021 15:45-0500Body miqhea596.86 kgThomas Felter Other [employer] Other 09-29-2021 10:45-0400Body pumoxz091.8 cmThomas Felter Other [employer] Other 09-29-2021 10:45-0400Body mass index (BMI) [Ratio] 34.43 kg/r0Bxqxvq Felter [facility] [employer] Other 09-29-2021 10:45-0400Body ypzqlp152.86 kgThomas Jazmyne Other [facility] [employer] Other Encounters Encounter DateEncounter TypeCare ProviderFacilityStart: 20-82-1717ppmiykevjk [facility]-17[facility]2025 End: 26-77-8916Tvhwmboxh department patient visitWill Zimmerman [facility] 02-17-2025 End: 30-56-0091qzuvvyypblXjmyztew Ball DO Work Phone: [facility]: 02-17-2025 End: 67-30-8836Artqqmk encounter procedureBenjamin Ball DO-[facility] Work Phone: Start: 02-02-2025 End: 78-71-9415Qqukvev encounter procedureBenjamin Ball DO-[facility] Work Phone: Start: 01-30-2025 End: 95-39-1607Xcqaidegv department patient visitADAHarmony EDGETriHealthtart: 01-30-2025 End: 34-42-0559Cdonrhmsi department patient visitDiogo Edge MD Work Phone: [facility] Emergency MedicineComment on above:Right leg weakness (Primary Dx)Start: 01-29-2025 End: 03-92-2170Zziaocwqt department patient visitBenjamin Ball DO Work Phone: [phone]-Ozddcsgxa Room Work Phone: Start: 01-29-2025 End: 39-08-6962hjnoxoffpjLcjfptzq Ball DO Work Phone: [phone]-WujbugfxfSt. [facility] BCStart: 01-29-2025 End: 50-41-9527Ykjymzu encounter procedureJonathan Krause MD-[facility] Work Phone: Start: 01-27-2025 End: 45-05-2199Txhguts encounter procedureJonathan Krause MD-[facility] Work Phone: Start: 01-27-2025 End: 96-52-0036eoanuuutrpNiubsmwi Ball DO Work Phone: -[facility] CenterStart: 01-12-2025 End: 56-03-6990hfxflxjvyuXogguqal Ball DO Work Phone: [facility] Work Phone: Start: 01-12-2025 End: 31-92-1972Omcpicl encounter procedureBenjamin Ball DO-[facility] Medical [facility] Work Phone: Start: 01-07-2025 End: 94-44-6402Loogzox encounter procedureRobedwar Antunez MDTori Izaguirreusky OrthoStart: 01-07-2025 End: 65-89-6061kmtcqkfdcvNqyexklz Ball DO Work Phone: [facility] Work Phone: Start: 01-07-2025 End: 82-64-6096Aqdphoe encounter procedureSarai Antunez MD-[facility] Orthopedics Work Phone: Start: 01-05-2025 End: 84-78-6216ioiciijgdpEsnfpgxn Ball DO Work Phone: [facility] Work Phone: Start: 01-05-2025 End: 79-35-5122Lxepdfn encounter procedureJonathan Krause MD-[facility] Pain Mgmt BC Work Phone: Start: 17-33-1244Otv-patient / Non-visitJonathan Krause MD-[facility] Work Phone: Start: 12-29-2024 End: 87-22-9393qamgvnhjeuYrkfvkje Ball DO Work Phone: [facility] Work Phone: Start: 12-29-2024 End: 86-59-4151Pxqkziy encounter procedureJonathan Krause MD-[facility] Work Phone: Start: 12-26-2024 End: 99-78-1680drkdwnohhxNuzsxmyt Ball DO Work Phone: [facility] Work Phone: Start: 12-26-2024 End: 40-94-9071Meleilk encounter procedureBejoselorigoberto Brower DO-[facility] Work Phone: Start: 12-22-2024 End: 48-37-3588Lbaxft outpatient visit 25 minutesAntonio Steele MD Work Phone: [facility] HospitalComment on above:Status post aorto-coronary artery bypass graft (Primary Dx); Multi-vessel coronary artery stenosis; Presence of Watchman left atrial appendage closure device; Persistent atrial fibrillation (Multi); Mixed hyperlipidemia; Dilated aortic root; Cardiomyopathy, ischemic; Never smoked cigarettes; Obesity (BMI 30-39.9)Start: 12-22-2024 End: 11-19-7510bnqcmtrtorOUVQDMSCandler County Hospital AmbulatoryStart: 10-15-7171Tnz-patient / Non-visitCatherine Angel [facility] Work Phone: Start: 16-20-1738Cop-patient / Non-visitCasimiro Antunez PA-C-[facility] Work Phone: Start: 12-15-2024 End: 32-23-0953Abidaxktrhwn / ancillary services managementLambertoatul HarleyGarcia Insight Surgical HospitalStart: 12-15-2024 End: 39-36-2095mpgdbforjiXOGAQDGCandler County Hospital AmbulatoryStart: 63-55-3988Pcz-patient / Non-visitCatherine Angel [facility] Work Phone: Start: 12-15-2024 End: 22-88-0874etsiblpyzzUzdgacaa Ball DO Work Phone: [facility] Work Phone: Start: 12-15-2024 End: 85-56-3350Lqimvww encounter procedureJonathan Krause MD-[facility] Pain Mgmt BC Work Phone: Start: 12-09-2024 End: 31-27-6538Vduezefnqa and management of inpatientMonanci Steele MD-[facility] Work Phone: Start: 11-19-2024 End: 30-43-3260Ggfbmj outpatient visit 40 minutesMonanci Steele MD Work Phone: [facility] CenterComment on above:Persistent atrial fibrillation (Multi) (Primary Dx); Multi-vessel coronary artery stenosis; Status post aorto-coronary artery bypass graft; Presence of Watchman left atrial appendage closure device; Mixed hyperlipidemia; Dilated aortic root; Cardiomyopathy, ischemic; Never smoked cigarettes; BMI 32.0-32.9,adultStart: 11-19-2024 End: 94-58-7289fgygtgkykvGMGEVRCInova Alexandria Hospital AmbulatoryStart: 10-23-2024 End: 74-72-9885wmnranhspmYwlucyez Ball DO Work Phone: [facility] Work Phone: Start: 10-23-2024 End: 55-95-1899Phuafdk encounter procedureRobedwar Antunez MD-[facility] Orthopedics Work Phone: Start: 10-23-2024 End: 34-98-5584Iecjkii encounter procedureRobedwar Antunez MD-[facility] OrthoStart: 10-23-2024 End: 28-62-1757kuicqdzulwSfrquxow Ball DO Work Phone: [facility] Work Phone: Start: 10-08-2024 End: 82-70-6687nqvyqflrqrKbaxcyqk Ball DO Work Phone: [facility] Work Phone: Start: 10-08-2024 End: 13-21-6395Vjulxvt encounter procedureBejoselorigoberto Brower DO-[facility] Work Phone: Start: 09-30-2024 End: 48-93-1499esohvkkcydBoytv HusseinFacility:[facility] Start: 09-30-2024 End: 67-17-7440Ouecxrwbwq and management of inpatientYazid Yaakov DO-[facility] Work Phone: Start: 09-30-2024 End: 54-39-6073fhknyixvgwt encounterBenangelatimi Brower DO Work Phone: [facility] Work Phone: Start: 09-29-2024 End: 27-82-4287Qgqwiyecva and management of inpatientRapetey Cabello MD-[facility] Work Phone: Start: 09-29-2024 End: 53-05-8347dmfibfdwjuFkand IrineoFacility:[facility] Start: 39-52-6772Pcs-patient / Non-visitFang Zhu MD-[facility] Work Phone: Start: 09-26-2024 End: 29-77-5959vuimnngwnvRzbhxngc Tsai MD Work Phone: RheumatologyComment on above:Pseudogout involving multiple joints (Primary Dx); Idiopathic chronic gout of multiple sites without tophus; Secondary osteoarthritis of multiple sites; PMR (polymyalgia rheumatica) (HCC); CHENCHO positive; Bilateral hand pain; Long-term use of high-risk medication; Chronic hip pain, bilateral; Rotator cuff arthropathy of left shoulder; group home current use of 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; Bilateral hand swelling; Chronic pain of both knees; Leg weakness, bilateral; Chronic bilateral low back pain without sciatica; Bilateral knee swellingStart: 09-26-2024 End: 07-86-9780Fgrepfjazopi consultation with Serafin Pineda MD Work Phone: RheumatologyStart: 09-13-2024 End: 39-58-2276Nivjrdlpk encounterHeladio Pineda MD Work Phone: RheumatologyComment on above:Orders; AppointmentStart: 09-13-2024 End: 07-10-2758Wqxmfnw encounter procedureHeladio Pineda MD Work Phone: eumatologyComment on above: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 Centertart: 09-09-2024 End: 99-78-0072Lhyxhgczi to same day surgery muncieBeesauBull [employer]ose Energy DO Work Phone: [facility]-Procedure Outpatient Work Phone: Start: 09-09-2024 End: 99-86-5630oabwmcaoxqZwzxuqcc Ball DO Work Phone: [facility] Work Phone: Start: 08-31-2024 End: 52-20-2713Lsnzfmnhx encounterHeladio Pineda MD Work Phone: [facility] FacilitymatologyComment on above:Orders; AppointmentStart: 08-22-2024 End: 90-56-8357Qzjxgh outpatient visit 25 minutesAntonio Steele MD Work Phone: uh FirelandsComment on above:Persistent atrial fibrillation (Multi) (Primary Dx); Multi-vessel coronary artery stenosis; Status post aorto-coronary artery bypass graft; Mixed hyperlipidemia; Dilated aortic root (CMS-HCC); Cardiomyopathy, ischemic; Presence of Watchman left atrial appendage closure device; BMI 32.0-32.9,adult; Never smoked cigarettesStart: 08-22-2024 End: 19-72-6761csziwcfbunKJMOQBZCandler County Hospital AmbulatoryStart: 08-19-2024 End: 26-57-0782xftwfapkroFfcjdscv Ball DO Work Phone: [facility] Work Phone: Start: 08-19-2024 End: 95-40-7887Sfkuwda encounter procedureBenjamin Ball DO Work Phone: [facility] Work Phone: Start: 29-36-2114Lsc-patient / Non-visitBenjamin Ball DO Work Phone: [facility] Cardiology Work Phone: Start: 33-96-0630Gjy-patient / Non-visitBenjamin Ball DO Work Phone: [facility] Work Phone: Start: 08-11-2024 End: 43-65-3771zuvzqzvwsuLciqlsx AkilFacility:[facility] Start: 08-11-2024 End: 04-30-3880Zhajzbgncs and management of inpatientBenjamin Ball DO Work Phone: [facility] Work Phone: Start: 78-46-1150bvcwdfblwxx encounterBenjamin Ball DO Work Phone: [facility] Work Phone: Start: 08-06-2024 End: 33-67-6147coueizyulrPwrbbgou Ball DO Work Phone: [facility] Work Phone: Start: 08-06-2024 End: 17-17-9459Aqthrsj encounter procedureBenjamin Ball DO Work Phone: [facility] Physician [facility] Orthoped[facility] Work Phone: Start: 08-04-2024 End: 85-52-8316Blcuqeb encounter procedureBenjamin Ball DO Work Phone: [facility]ician [facility] Work Phone: Start: 08-04-2024 End: 72-99-5439xxmcuyozveGqnbjhcp Ball DO Work Phone: [facility] Work Phone: Start: 08-01-2024 End: 87-52-2462Wxvgewpbj department patient visitBenjamin Ball DO Work Phone: [facility]-Emergency Room Work Phone: Start: 07-30-2024 End: 87-53-6364ndiivudofrLathpbyq Ball DO Work Phone: [facility] Work Phone: Start: 07-30-2024 End: 57-56-1695Znckehc encounter procedureBenjamin Ball DO Work Phone: [facility] Medical [facility] Work Phone: Start: 07-07-2024 End: 24-89-8621Slesjrrkq encounterHeladio Pineda MD Work Phone: RheumatologyComment on above:ResultsStart: 07-01-2024 End: 00-27-7028islaohfsieDoizefik Ball DO Work Phone: [facility] Work Phone: Start: 07-01-2024 End: 69-82-9762Yzsxdrw encounter procedureBenjamin Ball DO Work Phone: [facility] Physician [facility] Medical [facility] Work Phone: Start: 51-71-7928Wmd-patient / Non-visitBenjamin Ball DO Work Phone: [facility] Work Phone: Start: 06-30-2024 End: 67-50-8739gpvjyeblowKNOIAWAE TSAIFacility:[facility] Centertart: 06-30-2024 End: 48-40-1337Zyknyog encounter procedureHeladio Pineda MD Work Phone: RheumatologyComment on above:PMR (polymyalgia rheumatica) (HCC) (Primary Dx); Elevated LFTs; Anemia of chronic disease; Elevated sed rate; Elevated C-reactive protein (CRP); Vitamin D deficiency; Hyperuricemia; Idiopathic chronic gout of multiple sites without tophus; Secondary osteoarthritis of multiple sites; Pseudogout involving multiple joints; group home current use of 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; Chronic pain of both knees; CHENCHO positive; Bilateral hand pain; Bilateral hand swelling; Bilateral arm weakness; Leg weakness, bilateral; Rotator cuff arthropathy of left shoulder; Long-term use of high-risk medicationStart: 06-13-2024 End: 12-51-3918Kgsrrjwwed hospital visit by Filemon Haque[address] Gonzalez StreetComment on above:Atrial fibrillation, unspecified type (Multi)Start: 06-13-2024 End: 58-79-5279jljxiqgkkqKMXOHJ J [facility] Hospitaltart: 05-29-2024 End: 09-88-8974Vufxrqi encounter procedureBenjamin Ball DO Work Phone: [facility]-Lab [facility] [place] Work Phone: Start: 05-29-2024 End: 76-41-6147jfkakkidihQqnowmhz Ball DO Work Phone: [facility] Work Phone: Start: 05-02-2024 End: 38-72-7137spbptieszoUnyzdaydcChillicothe VA Medical Center Work Phone: Start: 05-02-2024 End: 18-83-6319Untwqzx encounter procedureAt[facility] Health [facility] Physician GroupB[facility] Work Phone: Start: 13-98-2283Ceo-patient / Non-visitAtrium Health [facility] Physician GroupBullhead [facility] Work Phone: Start: 04-02-2024 End: 71-40-0350FtcwgfVjmgsn D Grande MD Work Phone: [facility] CardiologyComment on above:Med RefillStart: 03-17-2024 End: 43-77-3503Nfniqpd encounter procedureAt[facility] Physician [facility] Work Phone: Start: 02-18-2024 End: 30-47-5169rkszkxksdoAkswotvg Inocente DO Work Phone: [facility] Work Phone: Start: 02-18-2024 End: 61-74-0899Uukozuo encounter procedureBejoselopenn highlands healthcare Inocente DO Work Phone: [facility] Physician [facility] [place] [facility] Work Phone: Start: 02-14-2024 End: 78-75-3125Hqojfj outpatient visit 25 minutesAntonio Steele MD Work Phone: [facility] CenterComment on above:Persistent atrial fibrillation (Multi) (Primary Dx); Status post aorto-coronary artery bypass graft; Presence of Watchman left atrial appendage closure device; Multi-vessel coronary artery stenosis; Mixed hyperlipidemia; Cardiomyopathy, ischemic; Dilated aortic root (CMS-HCC); Never smoked cigarettes; BMI 35.0-35.9,adultStart: 02-14-2024 End: 93-54-2846judvajszrjMYRWBHALong [facility] AmbulatoryStart: 02-12-2024 End: 18-01-0351aotyifoypqOP Vitaliy Brower Work Phone: [facility] Work Phone: Start: 02-12-2024 End: 30-35-3925Vkjlakz encounter procedureDO Vitaliy Brower Work Phone: [facility] [place] [facility] Work Phone: Start: 01-29-2024 End: 40-66-0717Ysazwvbqtp and management of inpatientScatie Kowalski MD Work Phone: [facility] HumphreyComment on above: Atrial fibrillation, unspecified type (Multi) (Primary Dx); Preoperative examination; Presence of Watchman left atrial appendage closure deviceStart: 01-29-2024 End: 19-63-0187Ddqalbmuvedlv examination doneStdanae Kowalski MD Work Phone: [facility] Work Phone: Start: 01-24-2024 End: 79-06-8171cerrxctfooQN Vitaliy Brower Work Phone: [facility] Work Phone: Start: 01-24-2024 End: 93-36-4442Poyjmyp encounter procedureDO Vitaliy Brower Work Phone: [facility] [place] Work Phone: Start: 64-22-3106Vcf-patient / Non-visitDO Vitaliy Brower Work Phone: [facility] Work Phone: Start: 35-21-2727Svl-patient / Non-visitDO Vitaliy Brower Work Phone: [facility] Work Phone: Start: 12-31-2023 End: 59-46-0222Doalkheri to same day surgery centerDO Vitaliy Brower Work Phone: [facility]-Digestive Health Work Phone: Start: 12-31-2023 End: 80-00-8502ugofthagnmNF Vitaliy Brower Work Phone: [facility] Work Phone: Start: 12-19-2023 End: 65-75-0730Ihkjqy outpatient new 45 Annie Kowalski MD Work Phone: uh [facility] CenterComment on above: 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 (Multi) (Primary Dx); Persistent atrial fibrillation (Multi)Start: 12-19-2023 End: 77-97-1535vyhygaftsyMBGYDC J [facility] Hospitaltart: 12-13-2023 End: 91-16-1930VbqrheYqxiiqpu Tsai MD Work Phone: eumatologyComment on above:Refill RequestStart: 16-66-4715Erb-patient / Non-visitDO Vitaliy Inocente Work Phone: [facility] Work Phone: Start: 11-19-2023 End: 51-56-9422adleqtgfmyEA [facility] Work Phone: [facility] Work Phone: Start: 11-19-2023 End: 95-04-2673Sdvkmogxp for general adult medical examination without abnormal findingsDO [facility] Work Phone: [facility]: 11-19-2023 End: 70-66-8262Bukcenh encounter procedureDO Vitaliy Brower Work Phone: [facility] GroupB[facility] Work Phone: Start: 10-18-2023 End: 46-10-4421Oqucaj outpatient visit 25 Trenton Steele MD Work Phone: uh [facility] HarrisburgComment on above:Persistent atrial fibrillation (Multi) (Primary Dx); Status post aorto-coronary artery bypass graft; Mixed hyperlipidemia; Cardiomyopathy, ischemic; Multi-vessel coronary artery stenosis; BMI 35.0-35.9,adult; Never smoked cigarettesStart: 10-02-2023 End: 38-99-5129rjhpvqtxojCC [facility] Work Phone: [facility] Work Phone: start: 10-02-2023 End: 31-31-5302Psjozfn encounter procedureDO Vitaliy Brower Work Phone: [facility] [employer] [facility] [employer] [place] [facility] Work Phone: Start: 09-19-2023 End: 59-45-0971cngwkjvuqeGWPTKL DOEMORNot AvailableStart: 64-16-4220Auqesgcho encounterHeladio Pinead MD Work Phone: RheumatologyComment on above:ResultsStart: 09-07-2023 End: 20-90-5371exhpdgjsctAE Vitaliy Brower Work Phone: [facility] Work Phone: Start: 09-07-2023 End: 51-36-9818Zchjtdc encounter procedureDO Vitaliy Brower Work Phone: [facility] Work Phone: Start: 67-40-9792Oje-patient / Non-visitDO Vitaliy Brower Work Phone: [facility] Work Phone: Start: 71-54-6879BtbbcoEltcpodn Tsai MD Work Phone: RheumatologyComment on above:Refill RequestStart: 71-34-2529Gpx-patient / Non-visitDO Vitaliy Brower Work Phone: [facility] Work Phone: Start: 08-30-2023 End: 68-64-2184Essoqxpzhj and management of inpatientDO Vitaliy Brower Work Phone: [facility] Work Phone: Start: 08-16-2023 End: 55-66-7802Toegbjqdbvfq / ancillary services managementJaiden F Ramon [facility] HospitalComment on above: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 (Multi)Start: 08-02-2023 End: 83-74-9991Cjzlekqrg to same day surgery centerDO Vitaliy Brower Work Phone: [facility]-Electrodiagnostics Work Phone: Start: 08-02-2023 End: 38-00-4999qjawmjdmuzGK Vitaliy Brower Work Phone: [facility] Work Phone: Start: 07-27-2023 End: 96-86-7262Xoevro outpatient new 60 Trenton Steele MD Work Phone: uh Firewillapa harbor hospitalComment on above:Persistent atrial fibrillation (Multi) (Primary Dx); Multi-vessel coronary artery stenosis; Cardiomyopathy, ischemic; Mixed hyperlipidemia; 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 (Multi); Status post aorto-coronary artery bypass graft; 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; BMI 35.0-35.9,adultStart: 26-03-5341Mnkbbryuw encounterHeladio Pineda MD Work Phone: RheumatologyComment on above:ResultsStart: 07-05-2023 Non-patient / Non-visitDO Vitaliy Brower Work Phone: [facility] Work Phone: Start: 31-37-2773Tyluvyinf encounterHeladio Pineda MD Work Phone: RheumatologyComment on above:Results; OrdersStart: 06-29-2023 End: 01-56-3387tzqydtgxzaEG Vitaliy Brower Work Phone: [facility] Work Phone: Start: 06-29-2023 End: 69-26-1891Hyucrvs encounter procedureDO Vitaliy Inocente Work Phone: [facility] GroupB[facility] Work Phone: Start: 41-47-0082sjwiybuwrgWYEYFLQ PROVIDER [facility]: 06-28-2023 End: 67-49-3404Vjjuhnrmmv hospital visit by Spike Rod [facility] RadiologyComment on above: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, T38.0X5A]Start: 06-20-2023 End: 68-04-3818Vqzmudw encounter procedureDO Vitaliy Brower Work Phone: [facility] Work Phone: Start: 08-52-7057Sqvsszgoi encounterKamille Krishnamurthy Physicians CardiologyStart: 06-12-2023 End: 63-52-6871rdjasjfdugHWPVLZE Mayo [facility] CENTERELAdena [facility] HospitalStart: 37-88-8658Njavjwwcv encounterAmbar Juarez Physicians Cardiology Comment on above:EP Surgery ( Pt Education)Start: 06-06-2023 End: 00-13-9200Vafvbbw encounter procedureDO Vitaliy Inocente Work Phone: [facility] [facility] Work Phone: Start: 06-04-2023 End: 71-17-4687bzuaptgcvlHEJZDL D GRANDEProMedica San Francisco Marine Hospitaltart: 06-04-2023 End: 84-21-4158Topkbq outpatient visit 40 minutesSarai Booth MD Work Phone: [facility] CardiologyComment on above: Persistent atrial fibrillation (CMS-HCC) (Primary Dx); Coronary artery disease involving [place] coronary artery of [place] heart without angina pectorisStart: 37-27-5619Bpzrnerde encounterAmbar Villalba CardiologyComment on above:EP Surgery (CDVN)Start: 16-60-8434Tjm- patient / Non-visitDO Vitaliy Brower Work Phone: [facility] Work Phone: Start: 59-01-6841Zcvjsddea encounterMelinda Gomes CMAProMedica Physicians CardiologyStart: 05-21-2023 End: 45-80-7386qvdxrtumeiLD Vitaliy [employer] Work Phone: [facility] Work Phone: Start: 05-21-2023 End: 59-02-7984Pduwdbu encounter procedureDO Vitaliy Brower Work Phone: [facility]-Ultrasound [facility] [place] Work Phone: Start: 05-21-2023 End: 43-64-5608Fdgvmhq encounter procedureDO Vitaliy Brower Work Phone: [facility]-X[facility] [place] [facility] Start: 05-21-2023 End: 54-77-4117lhmhwjruojFK Vitaliy Brower Work Phone: [facility] Work Phone: Start: 18-07-7996Fqbbrk outpatient visit 15 minutes Melinda [facility]icsStart: 31-17-8258Kbcasnbcd encounter Sarai [facility] OrthopedicsStart: 05-18-2023 End: 78-90-9385kdcjrnlqhoBopajabu Ball Other [employer] Other Start: 81-88-4110Kwwxdaftb encounterBenrigoberto BrowerFPPal [facility]er Medical ClinicStart: 25-39-8215Rozglj outpatient visit 15 minutesRobedwar HEBERT [facility]icsStart: 05-16-2023 End: 05-57-5031kabpiuwkwmKU Vitaliy Brower Work Phone: [facility] Work Phone: Start: 05-16-2023 End: 70-86-7245Iulhnrg encounter procedureDO Vitaliy Brower Work Phone: [facility] Start: 05-07-2023 End: 56-42-5567bbsbtgpuftUabcy Bailey Other noAhandyhand Other Start: 33-88-5318Gdqrbo outpatient visit 25 minutes uSkhjinder Izaguirreusky OrthopedicsStart: 05-07-2023 End: 77-00-0832Dqmnunk encounter procedureDO Vitaliy Brower Work Phone: [facility]-Start: 05-02-2023 End: 49-19-6779wpfcplteatKxegcuiu Ball Other [employer]Ahandyhand Other Start: 03-59-5363Jnpene outpatient visit 15 minutes Vitaliy BatemanG [facility] ClinicStart: 05-02-2023 End: 31-11-2021Jeiywum encounter procedureDO Vitaliy Brower Work Phone: [facility]-Start: 04-18-2023 End: 04-17-9818Nvsbnewti department patient visitWaltham Hospitaltart: 67-95-2999Nmhtnebed encounterPamela Jeny Krishnamurthy [facility] CardiologyStart: 04-12-2023 End: 35-63-2406qjtawgakewKttdtqis Ball Other [employer]Ahand[employer] Other Start: 10-00-5671Plxkfb outpatient visit 15 minutes Vitaliy [facility] ClinicStart: 24-84-3679Aximnnb encounter procedure DO Vitaliy Oh Phone: [facility]-Start: 04-11-2023 End: 14-03-4298wkuajzepiqFwdvqb Andrea II Other [employer]Ahand[employer] Other Start: 14-49-4622Getoxl follow up visit related to original pxRobert [place] IIFPG [facility]icsStart: 04-06-2023 End: 03-12-4832cjmtcmqhbeQfeywsrd Ball Other [employer]Ahand[employer] Other Start: 37-00-9464Dthzondmz encounterBenjamin BallFPG [facility] ClinicStart: 04-05-2023 End: 44-09-4301ljttblrrakOyvjjimv Ball Other [employer]Ahandyhand Other start: 33-60-7026Antitc outpatient visit 15 minutes Vitaliy BatemanG [facility] ClinicStart: 04-05-2023 End: 60-46-2837Hbdqxsz encounter procedureDO Vitaliy Brower Work Phone: [facility] Work Phone: Start: 35-47-2020Ifzarc follow up visit related to original pxRobert [place] IIFPG [facility]icsStart: 03-29-2023 End: 17-34-4700ojqovxaasrUW Vitaliy Brower Work Phone: [facility] Work Phone: Start: 03-29-2023 End: 84-25-4728Npxvuze encounter procedureDO Vitaliy Brower Work Phone: [facility] Start: 03-15-2023 End: 94-62-2180qqynldsghbVthco Bailey Other [employer] Other Start: 92-58-1377Rotrud outpatient visit 25 minutes Sukhjinder MontesinosFPG [facility]icsStart: 93-47-1442Kulazu follow up visit related to original pxPollonnmichael VerduzcoFPG [facility]icsStart: 03-15-2023 End: 41-62-0462Tgzxwzi encounter procedureDO Viatliy Brower Work Phone: [facility] Work Phone: Start: 03-12-2023 End: 96-49-2071hkdnkociazZxptmi [place] II Other [employer]Ahandyhand Other Start: 98-38-4552Vdakhtbdl encounterRobert [place] II FPG [facility]icsStart: 03-07-2023 End: 53-09-4903wuzzotlwimAxpltguc [facility] Other noAhandyhand Other Start: 65-02-4654Kesppd follow up visit related to original pxRobert Andrea IIFPG [facility]icsStart: 19-34-9664Ylweefxvs encounterBenrigoberto Brower Medical ClinicComment on above:ResultsStart: 03-05-2023 End: 28-63-8740qexnbppttdOftjhawf Ball Other [facility] [employer] Other Start: 03-05-2023 End: 05-09-1266Egvfrpt encounter Nora Pineda MD Work Phone: RheumatologyComment on above:PMR (polymyalgia rheumatica) (HCC) (Primary Dx); Elevated sed rate; Elevated C-reactive protein (CRP); Idiopathic chronic gout of multiple sites without tophus; Pseudogout involving multiple joints; Secondary osteoarthritis of multiple sites; Rotator cuff arthropathy of left shoulder; Pain in right hip; group home current use of 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; CHENCHO positive; Chronic pain of both knees; Bilateral hand painStart: 22-30-6652Elwjqbtzu encounterBejuany Brower Medical ClinicStart: 65-88-4740GsixnsZqoytwey Tsai MD Work Phone: RheumatologyComment on above:Refill RequestStart: 02-28-2023 End: 09-84-7082pudejfeiqeJhqzbeaa [place] Other [employer] Other Start: 51-13-7141Syscnx follow up visit related to original pxMelinda Wing OrthopedicsStart: 02-16-2023 End: 03-62-5031ecxlgbbtczNmxxud [place] II Other [facility] [employer] Other Start: 06-20-9661Nfzbxaoew encounterRobert [place] II FPG [facility] ClinicStart: 18-84-3817Tnnhvgwyz encounterBenrigoberto [facility]er Medical ClinicStart: 02-13-2023 End: 68-00-1645Wfoozyknv to same day surgery centerDO Vitaliy Ball Work Phone: [facility]Start: 02-13-2023 End: 69-51-9170dqcktqcckrHR Vitaliy Ball Work Phone: [facility] Work Phone: Start: 02-12-2023 End: 08-86-9463vxasqinwnyPivbl Bailey Other [employer] Other Start: 58-22-4488Quuiouyzo encounterKesaida MontesinosFPG [facility]icsStart: 02-06-2023 End: 16-06-6256dhwknikqjnDtxoko [place] II Other [employer] Other Start: 69-31-3823Rbnijsfud encounterRobert Andrea II FPG [facility]icsStart: 02-02-2023(Prolonged) Prolonged ServicesRobert Andrea IIFPG [facility]icsStart: 02-02-2023 End: 01-55-9320ljitvzhblwFwoynu Andrea II Other [employer] Other Start: 01-31-2023 End: 39-73-1525xkarssyhptJldjak [place] II Other [employer] Other Start: 31-45-6710Chuulap encounter procedureRobert Andrea IIFPG [facility]icsStart: 01-26-2023 End: 67-36-2214akhvxbqxrdAT Vitaliy Ball Work Phone: [facility] Work Phone: Start: 01-26-2023 End: 58-62-2314Livrgkq encounter procedureDO Vitaliy Ball Work Phone: [facility]hx[facility]Gmhfzsps Testing Work Phone: Start: 01-24-2023 End: 30-82-0028lcoldkbqsaVvdynkvo Ball Other [employer] Other Start: 25-27-9918Fcxsme outpatient visit 15 minutes Vitaliy [facility] ClinicStart: 14-44-4936Rgfszosmu encounterHeladio Pineda MD Work Phone: RheumatologyComment on above:ResultsStart: 01-05-2023 End: 77-86-2633Ncabelx encounter procedureHeladio Pineda MD Work Phone: RheumatologyComment [...] left shoulder; Pain in right hip; 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; CHENCHO positive; Bilateral hand swellingStart: 01-02-2023 End: 25-83-5949kcqhnhaipqLiiujlny Ball Other [employer] Other Start: 46-98-7144Tlvgzdlhd for other preprocedural examinationBenrigoberto Brower Medical ClinicStart: 59-16-0128Pxthgy outpatient visit 25 minutesBejoselorigoberto [facility] Medical ClinicStart: 12-26-2022 End: 16-54-6414gwtgwycjuwXbxynjxq [place] Other [facility] [employer] Other Start: 43-87-1040Mrluqb outpatient visit 15 minutes [facility]icsStart: 12-20-2022 End: 32-93-8502fndjmdntivZmymvveq Ball Other [employer]Ahandyhand Other Start: 57-67-8892Rgmpzeuho encounterBenjamin BallFPG [facility] ClinicStart: 12-04-2022 End: 08-80-9528pvuafypbjhEyxdidda Ball Other [employer] Other Start: 14-60-0464Hseiigked encounterBenjamin BallFPG [facility] ClinicStart: 11-23-2022 End: 72-60-7016bnlcpwbhqxCyibtgkw Ball Other [employer]yhand Other Start: 47-45-2784Bcepycisz encounterBenjamin BallFPG [facility] ClinicStart: 11-22-2022 End: 93-14-0412uakfgrmmmaBjydpj [place] II Other [facility] [employer] Other Start: 21-88-4326Slfvjitdq encounterRobert [place] II FPG [facility]icsStart: 11-21-2022 End: 80-31-9249hrvfktyighGvhsyasi [place] Other [facility] [employer] Other Start: 96-54-1953Mxrdwh outpatient visit 15 minutes Melinda VerduzcoFPG [facility]icsStart: 11-13-2022 End: 38-64-9824Iulogcs encounter procedureDO Vitaliy Ball Work Phone: [facility] [place] Work Phone: Start: 11-13-2022 End: 23-79-3544antqwxltruXO Vitaliy Ball Work Phone: [facility] Work Phone: Start: 11-06-2022 End: 46-34-3908crxwjfjejgExzxfbkt Ball Other [employer] Other Start: 12-77-1002Wotxkdryh encounterBenrigoberto Brower Medical ClinicStart: 11-01-2022(Procedure) ShortThomas FelterErie [facility] CenterStart: 11-01-2022 End: 75-53-2904ybruqlxtyqAfczqb Felter Other [employer] Other Start: 10-26-2022 End: 22-29-0591kadtbxqwthBK Vitaliy Brower Work Phone: [facility] Work Phone: Start: 10-26-2022 End: 70-81-3260Cehrdkc encounter procedureDO Vitaliy Brower Work Phone: [facility] Start: 10-25-2022 End: 80-42-5171qgxfbjotfrQqttaboo Ball Other [employer] Other Start: 50-95-5477Czymoo outpatient visit 15 minutes Vitaliy [facility] ClinicStart: 10-11-2022 End: 20-05-2563Ojcytnzms department patient visitDO Vitaliy Brower Work Phone: [facility]-Emergency Room Work Phone: Start: 10-05-2022 End: 55-41-1895ppghvvonxhRjfjnr [place] II Other [employer] Other Start: 95-07-7457Uypvvijoc encounterRobert [place] II FPG [facility]icsStart: 10-04-2022 End: 13-01-3161tsbceyqztpLzkcnmfl Ball Other [employer] Other Start: 99-71-2696Qxrxczfjr encounterBenrigoberto [facility]er Medical ClinicStart: 10-03-2022 End: 96-88-6596zefmaiolnpPcimspws Ball Other [employer] Other Start: 34-10-3636Ngsgqq outpatient visit 15 minutes Vitaliy BallNATALIEG [facility] ClinicStart: 44-54-0294Vbvuqptwd encounterThomas FelterFPG [facility]icsStart: 10-02-2022 End: 93-97-2298mnrvndurqbIE Vitaliy Ball Work Phone: [facility] Work Phone: Start: 10-02-2022 End: 79-32-3026Ekyjuxn encounter procedureDO Vitaliy Brower Work Phone: [facility] [address] Work Phone: Start: 09-27-2022 End: 56-10-2067sdmopjnzhkRvmamsjt Ball Other [employer] Other Start: 60-73-6024Khyuqicbf encounterBenjamin BallFPG [facility] ClinicStart: 10-79-6820baqgalyxrfSK VITALIY BROWERFacility:U6Lnrkl: 08-09-2022 End: 30-45-6901hvwdjyznbeUwdzsppi Ball Other [employer] Other Start: 47-88-3400Hzzzeh outpatient visit 15 minutes Vitaliy BallFPG [facility] ClinicStart: 08-07-2022 End: 89-84-1867imawdwkaqkNpwytc Felter Other noAhandyhand Other Start: 77-49-5230Hqxmym outpatient visit 15 minutes Jonathan FeltdreadFPPal [facility] [place] CreekStart: 08-02-2022 End: 80-48-4758ghmcscmoyeSG Vitaliy Ball Work Phone: [facility] Work Phone: Start: 08-02-2022 End: 38-14-9835Cwwoigg encounter procedureDO Vitaliy Ball Work Phone: [facility] Start: 08-01-2022 End: 38-52-0631lgzmegbdwvFyifxecy Ball Other [employer] Other Start: 97-92-0403Igbdbkxgj encounterBenrigoberto Brower Medical ClinicStart: 07-31-2022(Procedure) ShortThomas FelterErie [facility] CenterStart: 07-31-2022 End: 36-92-5187pgxuejldqkPY VITALIY BROWERRayle [employer] Other Start: 53-62-8483Asyvczjxv encounterThomas FelterFPG [facility] CreekStart: 07-29-2022 End: 24-25-8440pcnuzzqiarVZ VITALIY BROWERFacility:L0Irxtc: 07-28-2022 End: 42-74-0305asqftxhmraGvdsbfnc Ball Other [employer] Other Start: 58-31-0039Dsoqmq outpatient visit 25 minutes Vitaliy [facility] ClinicStart: 07-04-2022 End: 94-85-4891wqngntsksmSblfyp Olexa Other [employer] Other Start: 62-45-0924Vzrxtp outpatient visit 25 minutes Jonathan OlexaFPPal IzaguirreLa Salle OrthopedicsStart: 07-03-2022 End: 87-16-2288crexnuleeqSknkdcaj [place] Other [employer] Other Start: 65-60-8989Okxqhizpr encounterMelinda SWAIN [facility]Start: 06-29-2022 End: 17-16-9152wwgnungalmVZ Vitaliy Brower Work Phone: [facility] Work Phone: Start: 06-29-2022 End: 09-66-5048Pgdxhiy encounter procedureDO Vitaliy Brower Work Phone: [facility]-MRI [facility] [place] Work Phone: Start: 06-09-2022 End: 88-13-8857pukzhwnnhcWycbsnxp Ball Other [employer] Other Start: 81-44-3892Tbahxhdrs encounterBenrigoberto BatemanG [facility] ClinicStart: 06-05-2022 End: 65-68-8521eskoinoeauFoprld Felter Other [employer] Other Start: 41-26-1835Csndmk outpatient visit 15 minutes Jonathan VieiradreadWILIAM [facility] [place]Start: 05-29-2022 End: 22-99-0543glsmlgeyojKhdbzjjd Ball Other [employer] Other Start: 87-90-6290Bhzohp outpatient visit 10 minutes Vitaliy BatemanG [facility] ClinicStart: 05-23-2022 End: 33-56-1861vgonepstxyQzfapqeu Ball Other [employer]yhand Other Start: 07-61-2809Idjkrh outpatient visit 15 minutes Vitaliy BrowerFPG [facility] ClinicStart: 74-31-1766Metrehija encounterBenjamin InocenteFPG [facility] ClinicStart: 05-22-2022 End: 45-77-6879Wwzscmhft department patient visitDO Vitlaiy Brower Work Phone: [facility]-Emergency Room Work Phone: Start: 05-01-2022(Procedure) ShortThomas FelterErie [facility] CenterStart: 05-01-2022 End: 73-30-6505jobsjgtlpdDjhlpz Felter Other noAhandyhand Other Start: 01-16-2023(Procedure) ShortThomas FelterErie [facility]ores Surgery CenterStart: 04-24-2022 End: 05-87-7860shcxrkviepOmyccm Felter Other [employer]yhand Other Start: 73-12-0338Qkczmj outpatient visit 25 minutes Jonathan Valdez [facility]Start: 04-12-2022 End: 80-31-8936jvmqllkhpyDW Vitaliy [employer] Work Phone: [facility] [employer] Work Phone: Start: 04-12-2022 End: 93-36-9063Egjhgsp encounter procedureDO Vitaliy [employer] Work Phone: [facility] Start: 03-20-2022(Procedure) ShortThomas FelterErie Shores Surgery CenterStart: 03-20-2022 End: 71-59-8205hbehbuxalzWzjgxq Felter Other [employer] Other Start: 03-08-2022 End: 88-63-6678sbxtbsxzqbWypcja Felter Other [employer] Other Start: 22-53-3821Tfsfkt outpatient visit 25 minutes Jonathan Val[facility] [place]Start: 02-22-2022(Procedure) Short Jonathan FelterErie [facility]ores Surgery CenterStart: 02-22-2022 End: 63-04-6379nbdzuivfudEaoihn Felter Other [employer] Other Start: 71-43-7747Qocpmf outpatient new 45 minutes [facility]icsStart: 02-15-2022 End: 68-22-6153mhncgmcmedCB Vitaliy [employer] Work Phone: [facility] Work Phone: Start: 02-15-2022 End: 84-68-3963Kaibozq encounter procedureDO Vitaliy Ball Work Phone: [facility] Start: 02-13-2022 End: 67-13-1434tpqyzysmcfLfdijw Felter Other [employer]yhand Other Start: 74-02-5980Kpbesk outpatient visit 25 minutes Jonathan Valdez [facility] [place]Start: 12-26-2021 End: 34-50-8338Tlrldzq encounter procedureDO Vitaliy [employer] Phone: [facility] Main CampusStart: 11-30-2021 End: 49-00-9567jjbqjmwaptGH VITALIY BROWERcility:Y0Zzjbj: 25-50-4353Kbn- procedure evaluation checkThomas Felter Other noAhandyhand Other Start: 09-28-2021 End: 05-03-3656flwjthhokpRdfczo [place] II Other [employer] Other Start: 59-36-4710Cokxis follow up visit related to original pxRobert [place] IIFPG [facility]icsStart: 09-28-2021 End: 94-07-5168Gfzptfl encounter procedureDO Vitaliy [employer] Phone: [facility] Start: 09-12-2021 End: 47-09-6399vspiswhwnmEiiqzqhl [place] Other [employer] Other Start: 66-93-8326Pukbsj outpatient visit 15 minutes Melinda SalcidoG [facility]icsStart: 08-17-2021(Post-Op) Post-OpRobert [place] IIFPG [facility]icsStart: 08-17-2021 End: 51-78-4915glastnjfjhAxigsd [place] II Other [employer] Other start: 07-20-2021(Post-Op) Post-OpRobert [place] II [facility]Start: 07-20-2021 End: 72-05-8145camwxjzfgxTsgjwd [place] II Other [employer] Other Start: 06-24-2021(Prolonged) Prolonged ServicesRobert [place] IIFPG [facility]icsStart: 06-24-2021 End: 51-78-1419tofuvgfqfqQvibbi Andrea II Other [employer] Other Start: 06-17-2021 End: 11-92-0422anobewxklqUgpfmj [place] II Other [employer] Other Start: 50-05-0805Fsnlmh outpatient visit 25 minutes Sarai [place] IIFPG [facility]icsStart: 64-34-6131Exgvl health examinationThomas Felter Other [employer] Other Start: 03-25-2021 End: 40-03-6257dxyimrtentZmotwq Andrea II Other [employer] Other Start: 39-84-4758Jdwzwnpuy encounterRobert Andrea II [facility]icsStart: 03-24-2021 End: 07-87-7402rjtwkcpigiKpzngi Felter Other [employer] Other Start: 80-80-3463Shvnfeeyb encounterThomas FelterFPG [facility]icsStart: 02-22-2021 End: 45-87-2787ogfegicbnrVdtitx Felter Other [employer] Other Start: 68-43-0948Xgvavq outpatient visit 25 minutes Jonathan FelterFPG [facility]Start: 02-15-2021(Procedure) Short Jonathan Par[facility] CenterStart: 02-15-2021 End: 26-35-9749jdwgjpnnsaWslyba Felter Other [facility] [employer] Other Start: 51-47-8149Vtaidecoy encounterThomas FelterFPG [facility]icsStart: 34-64-4720Bdjvtp outpatient visit 15 minutesThomas FelterFPG [facility] CreekStart: 59-21-1841zyvnfgrbyeVvvbvx C Koplas MD Work Phone: radiologyStart: 06-01-2009 End: 33-27-9357Thvbgdw encounter procedureGenie Hdez MD Work Phone: [facility] Procedures DateProcedureProcedure DetailPerforming ClinicianStart: 71-55-5487Cryjzjresbq timeFrkiley Dias MD Work Phone: Start: 43-67-5218Tym routine ecg w/least 12 lds trcg only w/o i&rFrancis Chrissy Dias MD Work Phone: Start: 31-70-5655Absgt typing serologic rh (d)Jose Antonio Dias MD Work Phone: Start: 84-79-3707Vhrbwvtbdgagv metabolic panelFrkiley Dias MD Work Phone: Start: 26-19-4051Sxxkcahf screenRobert [place] II Comment on above:Result Comment: PERFORMED BY: [address] [place] [address] PATHOLOGIST FIBER ANALYST RYAN ALMARAZ M.D.Start: 83-41-5872GA pre/post mri xrayBenjamin Ball DO Work Phone: Start: 26-82-2765DGO of lumbar spine with contrast Vitaliy Ball DO Work Phone: Start: 50-72-7369Klzqy X-ray of right hipBenjamin Ball DO Work Phone: Start: 14-66-7848J-ray of right knee, three views Vitaliy [employer] DO Work Phone: Start: 52-33-6767Mzh routine ecg w/least 12 lds w/i&r Antonio Steele MD Work Phone: Start: 47-11-5753Eneemo-up visitFollow-upMONANCI ARANAIStart: 97-35-9680Nmy routine ecg w/least 12 lds w/i&rMchuck Steele MD Work Phone: Start: 90-71-5463Zuxqb X-ray of right hipBenrigoberto Ball DO Work Phone: Start: 40-18-2429HZ of head without contrastBenjamin Ball DO Work Phone: Start: 33-01-8436Nzbsp chest X-rayBenjamin Ball DO Work Phone: Start: 65-46-9248Rfeadztj identified in Blood by CultureBenjamin Ball DO Work Phone: Start: 36-72-8664Axxxw cultureBenjamin Ball DO Work Phone: Start: 63-63-4096GS LHC & COR Angio w/graftsBenjamin Ball DO Work Phone: Start: 55-01-6570Udbqignt Ball DO Work Phone: Start: 18-97-7192Zuc routine ecg w/least 12 lds w/i&r Antonio Steele MD Work Phone: Start: 90-21-1381Ezelrvkccufp myocardial perfusion stress studyBenangelamin [employer] DO Work Phone: Start: 29-84-6067Mvotsk scan of lower limb veins Vitaliy [employer] DO Work Phone: Start: 34-18-5508Qgczi chest X-rayBenjamin Ball DO Work Phone: Start: 79-44-6147Pkglp X-ray of left hipBenjamin Ball DO Work Phone: Start: 53-76-4553Dupqn X-ray of left handBenjamin Ball DO Work Phone: Start: 81-92-6284Idlrf X-ray of left hipBenjamin Ball DO Work Phone: Start: 09-55-8859Pdnw transthorc r-t 2d w/wo m-mode rec f-up/lmtdBrett R Loredo ASSEMBLY MACHINE FEEDER-ENTRY LEVEL ELECTRICAL ENGINEER Work Phone: Start: 13-70-6413Gnlp transthorc r-t 2d w/wo m-mode rec f-up/lmtdBrett R Loredo ASSEMBLY MACHINE FEEDER-ENTRY LEVEL ELECTRICAL ENGINEER Work Phone: [phone]: 19-87-2355Bhrrl metabolic panel calcium total Sammi Loredo ASSEMBLY MACHINE FEEDER-ENTRY LEVEL ELECTRICAL ENGINEER Work Phone: [phone]: 33-40-9341Fsqbv typing serologic rh (d)Sammi Loredo ASSEMBLY MACHINE FEEDER-ENTRY LEVEL ELECTRICAL ENGINEER Work Phone: [phone]: 54-14-2538Jao routine ecg w/least 12 lds trcg only w/o i&rBrett R Loredo ASSEMBLY MACHINE FEEDER-ENTRY LEVEL ELECTRICAL ENGINEER Work Phone: [phone]: 14-02-4960Fv heart contrast eval cardiac structure&morphStevthien Kowalski MD Work Phone: [phone]: 89-12-5154Noiegzlir colonoscopyDO [employer] [facility] Work Phone: Start: 72-57-9521AnnbxpruubdCsqmkz Filby MD Work Phone: [phone]: 37-15-4408RJ angiography of neck vesselsDO [facility] Work Phone: Start: 57-95-4072Ktmbmfhu tomography of abdomen and pelvis with contrastDO [facility] Work Phone: Start: 51-15-9763SW angiography of headDO [facility] Work Phone: Start: 83-94-7413NJ of head without contrastDO [facility] Work Phone: Start: 42-21-1108Pcqac chest X-rayDO [facility] Work Phone: Start: 76-37-3155Ijaomuips ID (NA Multiplex Assay)DO [facility] Work Phone: Start: 78-63-9695Foxuv culture for bacteria, including anaerobic screenDO [facility] Work Phone: Start: 75-37-8950Gfhqdzywgci Panel (PCR)DO [facility] Work Phone: Start: 25-53-2698SDFL-CoV-2, Influenza & RSV (PCR)DO [facility] Work Phone: Start: 86-52-6571Olf routine ecg w/least 12 lds w/i&r Antonio Steele MD Work Phone: Start: 40-72-9587Ppyktwo of coronary artery bypass graftingStatus post aorto-coronary artery bypass graftMonanci Steele MD Work Phone: Start: 89-90-3904Don routine ecg w/least 12 lds w/i&r Antonio Steele MD Work Phone: Start: 06-28-2023 End: 32-38-4653Sgg bone density study 1/> sites axial Delvin Pineda MD Work Phone: Start: 56-07-8563Fezrop-up visitFollow-upRSHIRLEY Orta GRANDEStart: 24-68-9728Vmz routine ecg w/least 12 lds w/i&rRshirley Booth MD Work Phone: Start: 16-09-8164Lcplxq scan of lower limb veinsDO [facility] Work Phone: Start: 01-62-9864G-ray of left kneeDO Vitaliy Ball Work Phone: Start: 35-27-1901Vyqgd X-ray of right hipDO Vitaliy Ball Work Phone: Start: 28-31-0483Igyyk X-ray of right hipDO Vitaliy Ball Work Phone: Start: 77-02-2417Hmvpw X-ray of right hipDO Vitaliy Ball Work Phone: Start: 21-28-3896Xultk replacement of right hip joint DO Vitaliy Ball Work Phone: Start: 67-04-3508Qgohf X-ray of right hipDO Vitaliy Ball Work Phone: Start: 05-03-2913Vlhob X-ray of right hipDO Vitaliy Ball Work Phone: Start: 32-43-0347DB of head without contrastDO Vitaliy Ball Work Phone: Start: 93-50-1132Lpbcf X-ray of right shoulderDO Vitaliy Ball Work Phone: Start: 51-40-9107Qnwgu X-ray of left hipDO Vitaliy Ball Work Phone: Start: 93-58-1926HLF screeningDR VITALIY BALLComment on above:Performed By: #### [facility] #### [facility] [address] [place] [address] Dr. Tracy HubbardStart: 45-46-5623KGV of left shoulderDO Vitaliy Ball Work Phone: Start: 85-63-6853Axnxt X-ray of left elbowDO Vitaliy Ball Work Phone: Start: 96-46-1404Domio X-ray of left shoulderDO Vitaliy Ball Work Phone: Start: 70-83-0525Rtpic X-ray of right hipDO Vitaliy Ball Work Phone: Start: 77-07-8963Tfmeg X-ray of right handDO Vitaliy Ball Work Phone: Start: 21-07-8122TZ pre/post mri xrayDO Vitaliy Brower Work Phone: Start: 23-54-4877PPJ of cervical spine without contrastDO Vitaliy Brower Work Phone: Start: 33-13-3778Ghftz X-ray of left hipDO Vitaliy Brower Work Phone: Start: 92-17-3639Apdbvmulq for malignant neoplasm of colonThomas Felter Other Start: 33-32-0626Hztxsiacq for malignant neoplasm of prostateThomas Felter Other Start: 28-07-8191Ivxzlhpdrcsa cardiovascular examinationThomas Felter Other Start: 31-06-9101OBNO CNT+DIFF SYN Vitaliy Hdez MD Work Phone: [...] artery bypass graftAntonio Steele MD Work Phone: [phone] of coronary artery bypass graftingStatus post aorto-coronary artery bypass graftAntonio Steele MD Work Phone: History of operative procedure on kneeThomas Felter Other Screening for malignant neoplasm of prostateThomas Felter Other Plan of Treatment DateCare ActivityDetailAuthorStart: 83-26-8346EON Vaccine (1 - 1-dose 75+ series)RSV Vaccine (1 - 1-dose 75+ series)[place] [facility]: [facility]33 Screening for malignant neoplasm of colonDayton Children's Hospital: 75-26-6403JQzR,Tdap and Td Vaccines (2 - Tdap)DTaP,Tdap and Td Vaccines (2 - Tdap)[facility] CenterG[facility] WITOI SystemStart: 40-26-6349XWeO/Tdap/Td Vaccines (2 - Tdap) DTaP/Tdap/Td Vaccines (2 - Tdap)[facility]: 51-18-4272Cojom microalbumin profileDTaP,Tdap,Td Vaccine (2 - Tdap)[facility]: 28-82-0943Kwjhacfh Cancer Screening DiscussionProstate Cancer Screening DiscussionNorwalk Memorial Hospitaltart: 01-26-5482Grdpxmte specific antigen measurementProstate Cancer Screening DiscussionNorwalk Memorial Hospitaltart: 07-01-2027 Diabetes ScreeningDiabetes ScreeningNorwalk Memorial Hospitaltart: 47-89-9116Ejmusyot ScreeningDiabetes ScreeningNorwalk Memorial Hospitaltart: 72-44-9918Usemsbgn Screening Diabetes ScreeningNorwalk Memorial Hospitaltart: 07-22-0818Nuvuicdjlq measurement Creatinine [facility]: 39-46-7624Qucixzxz mellitus screeningDiabetes ScreeningDayton Children's Hospital: 25-79-6571Anaesbnkq measurementPotassium [facility] Start: 67-85-1606Pilnthtb ScreeningDiabetes ScreeningNorwalk Memorial Hospitaltart: 08-25-2025 End: 28-40-6587Cesjzni encounter crtplazjj61/19/2026 12:00 PM EDT Office Visit Rheumatology [address] [place] [address] Heladio Pineda MD [address] [facility] [place], [place] [id number] Follow up for osteoarthritis/PMR/gout in 6-12months RheumatologyComment on above:Follow up for osteoarthritis/PMR/gout in 6-12months Start: 08-18-2025 End: 85-56-7471Zrdcycw encounter uekepkqba76/12/2026 3:20 PM EDT Office Visit [address] [address] Antonio Steele MD [address] [facility] [place] [address] [facility]: 93-19-0617NjwbtmytkgcpidvkIiwrbzjbwzphht [facility]: 06-29-2025 End: 63-48-7409Hnbzbjx encounter ypetkjfpq58/23/2026 9:00 AM EDT Office Visit Rheumatology [address] [facility] [place] [address] Heladio Pineda MD [address] [place] [address] Return for gout/osteoarthritis/pseudogout/low vit fu OV 6-12months.RheumatologyComment on above:Return for gout/osteoarthritis/pseudogout/low vit fu OV 6-12months.Start: 06-27-2025 Screening for osteoporosisBone Density ScanUnCleveland Clinic Mercy Hospital Start: 09-94-5591Dynndq scan of upper limb arteriesUS arterial duplex UE [facility]htart: 56-72-4189BN Upper extremity artery - leftKettering Health Miamisburgtart: 96-91-4298Ufozmenj mellitus screeningDiabetes ScreeningDayton Children's Hospital: 01-12-2025 End: 58-16-7004Gvfezmg encounter pbboldisj45/06/2025 1:00 PM EDT Office Visit [facility] [address] [place] [address] [place] [address] [place] [address] [facility] 12-22-2024 End: 55-55-6963Tloiomj encounter swovdyzrf85/15/2025 11:30 AM EDT Office Visit [place] [address] [place] [address] Antonio Steele MD [address] [facility] 2, [address] [place] [address] [facility]: 69-94-8416HznnsdekgKettering Health Miamisburgtart: 74-06-8129LmctoivhjKettering Health Miamisburgtart: 62-47-5802ZvezwjhnnKettering Health Miamisburgtart: 57-08-1491Dlavwsjxpce of Cardiac Rhythm, SingleRestoration of Cardiac Rhythm, SingleKettering Health Miamisburgtart: 48-46-9533Qvkrvqqo admission [facility]: 43-56-6172QNVAD-19 Vaccine ( season)COVID-19 Vaccine ( season)[facility] Start: 16-09-1537Wepldcmgb vaccinationRegency Hospital Cleveland WestStstaffordsville: 12-03-2024 End: 92-16-9169Cvzon metabolic 2000 panel - Serum or PlasmaBasic Metabolic Panel Lab Routine Multi-vessel coronary artery stenosis Cardiomyopathy, ischemic Exp ected: 12/03/2024 (Approximate), Expires: 11/19/2025[facility] Service Area Work Phone: Comment on above:Expected: 12/03/2024 (Approximate), Expires: 11/19/2025Start: 11-19-2024 End: 05-78-5472Cvvobrrymstxd ExternalCardioversion External Cardiac Services Routine Persistent atrial fibrillation (Multi) Expected: 11/19/2024 (Approximate), Expires: 11/19/2026UnCleveland Clinic Mercy Hospital Work Phone: Comment on above:Expected: 11/19/2024 (Approximate), Expires: 11/19/2026Start: 08-13-2025Medicare Annual Wellness VisitMedicare Annual Wellness Visit (AWV)[facility]: 11-07-2024 Influenza vaccinationInfluenza Vaccine (#1)[facility] Start: 05-39-3334Qfecd X-ray of right hipXR hip RT min 2V(w/wo pelvis)*[facility]: 85-26-1703TJ Hip - right 2 [facility]: 10-06-2024 End: 105969-sxvnuzswltulyd D3 [Mass/volume] in Serum or PlasmaVITAMIN D 25 HYDROXY Lab Routine Vitamin D deficiency Expected: 10/06/2024 (Approximate), Expires: 07/07/2025leveland ClinicComment on above:Expected: 10/06/2024 (Approximate), Expires: 07/07/2025Start: 79-16-7365YbpphrkcsKettering Health Miamisburgtart: 32-41-5236Mfcgcfhv therapy procedureKettering Health Miamisburgtart: 09-30-2024 End: 25-76-0921Jtsmu cultureKettering Health Miamisburgtart: 09-30-2024 Hospital admissionKettering Health Miamisburgtart: 67-82-3057Uexrfppx to cardiologistKettering Health Miamisburgtart: 89-86-7678XzvdyxybbKettering Health Miamisburgtart: 02-22-5130Ieqmqndo identified in Blood by CultureBlood CultureKettering Health Miamisburgtart: 09-30-2024 End: 20-67-5039Hdsuzwr encounter puuegkoez31/24/2025 10:30 AM EDT Office Visit [address] [place] [address] Antonio Steele MD [address] [facility] 2, [address] [place] [address] [facility]Start: 04-41-4967IqlqznyegKettering Health Miamisburgtart: 18-38-4319YeuenrfenKettering Health Miamisburgtart: 06-40-2203Quksytzu admissionKettering Health Miamisburgtart: 09-13-2024 End: 03-68-4820Dgtyow-up sgzqtayjd50/07/2025 10:00 AM EDT [facility] Rheumatology [address] [place] [address] Heladio Pineda MD [address] [place], [place] [phone] follow upRheumatologyComment on above:follow upStart: 09-08-2024 End: 23-99-5321cbpcnnjbnn69/02/2025 10:30 AM EDT Results Only [facility] [address] [place] [address] LABNortCorewell Health Pennock Hospital LaboratoryComment on above: LABStart: 09-05-2024 End: 61-45-9827Gwocoiifgqtcv ExternalCardioversion External Cardiac Services Routine Persistent atrial fibrillation (Multi) Expected: 09/05/2024 (Approximate), Expires: 08/22/2026[facility] Service Area Work Phone: Comment on above:Expected: 09/05/2024 (Approximate), Expires: 08/22/2026Start: 57-84-9898MsjhedxhcKettering Health Miamisburgtart: 27-51-0615Ipyogfqe to cardiologistKettering Health Miamisburgtart: 93-34-4148Vqfjniie admissionKettering Health Miamisburgtart: 08-06-2024 End: 12-04-0108DKX panel - Blood by Automated countCOMPLETE BLOOD COUNT Lab Routine Anemia of chronic disease Expected: 08/06/2024 (Approximate), Expires: 07/07/2025leveland ClinicComment on above:Expected: 08/06/2024 (Approximate), Expires: 07/07/2025Start: 08-06-2024 End: 67-46-8952Bobbtybxsxllo metabolic 2000 panel - Serum or PlasmaCOMPREHENSIVE METABOLIC PANEL Lab Routine Elevated LFTs Expected: 08/06/2024 (Approximate), Expires: 07/07/2025[facility] Work Phone: Comment on above:Expected: 08/06/2024 (Approximate), Expires: 07/07/2025Start: 08-06-2024 End: 10-80-9453Pbncx [Mass/volume] in Serum or PlasmaURIC ACID Lab Routine Hyperuricemia Expected: 08/06/2024 (Approximate), Expires: 11/05/2024[facility] ClinicComment on above:Expected: 08/06/2024 (Approximate), Expires: 11/05/2024 Start: 76-38-5025Kihmo X-ray of left hipXR hip LT min 2V(w/wo pelvis)*[facility]: 74-29-5046WA Hip - left 2 ViewsKettering Health Miamisburgtart: 00-04-1821Sgenf X-ray of left handXR hand LT min 3V* [facility]: 63-53-8803KJ Hand - left GE 3 Views [facility]: 06-29-2024 End: 06-29-2025 reactive protein [Mass/volume] in Serum or PlasmaC-REACTIVE PROTEIN Lab Routine Elevated sed rate Elevated C-reactive protein (CRP) Expected: 06/29/2024 (Approximate), Expires: 06/29/2025[facility] ClinicComment on above:Expected: 06/29/2024 (Approximate), Expires: 06/29/2025Start: 06-29-2024 End: 73-01-8913Buoymqlwxkrqy metabolic 2000 panel - Serum or PlasmaCOMPREHENSIVE METABOLIC PANEL Lab Routine Elevated LFTs Expected: 06/29/2024 (Approximate), Expires: 06/29/2025[facility] Work Phone: Comment on above:Expected: 06/29/2024 (Approximate), Expires: 06/29/2025Start: 06-29-2024 End: 41-37-7893Jmmmqyyugrz sedimentation rateSEDIMENTATION RATE, WESTERGREN Lab Routine Elevated sed rate Elevated C-reactive protein (CRP) Expected: 06/29/2024 (Approximate), Expires: 06/29/2025[facility] ClinicComment on above:Expected: 06/29/2024 (Approximate), Expires: 06/29/2025Start: 06-29-2024 End: 09-66-2471Qkaii [Mass/volume] in Serum or PlasmaURIC ACID Lab Routine Hyperuricemia Expected: 06/29/2024 (Approximate), Expires: 09/28/2024[facility] ClinicComment on above:Expected: 06/29/2024 (Approximate), Expires: 09/28/2024 Start: 20-40-9393Yrxbe BMI ScreeningAdult BMI ScreeningMagruder Memorial Hospital Start: 48-04-9592Bamkywx ScreeningTobacco ScreeningProGrant Hospitalca [facility] Campustart: 05-20-2024 End: 99-05-7268Sqtcvrc encounter iwkrqkbwe64/11/2025 10:30 AM EST Appointment [address] [place], [place] [facility]: 04-28-2024 End: 81-96-6067Euolggg encounter pauhaoiox43/20/2025 8:40 AM EST Office Visit [place] [id number] [facility] [address] [place] [address] Antonio Steele MD [address] [facility] [address], [address] [place] [address] [facility] CenterStart: 74-36-3630Pevalzk ScreeningTobacco ScreeningECU Healthtart: 01-01-2025Medicare [facility] Annual Wellness VisitMedicare Advantage Annual Wellness VisitNorwalk Memorial Hospitaltart: 03-17-2024 End: 48-10-0522Hdfrcbc encounter sywgaonbm62/09/2024 9:00 AM EST Office Visit Rheumatology [address] [facility] [place] [address] Heladio Pineda MD [address] [facility] [place] [address] for PMR/osteoarthritis/gout fu OV 6monthsRheumatologyComment on above:for PMR/osteoarthritis/gout fu OV 6monthsStart: 02-14-2024 End: 34-24-6260Xmdvm 1996 panel - Serum or PlasmaLipid Panel Lab Routine Mixed hyperlipidemia Expected: 02/14/2024 (Approximate), Expires: 02/13/2025[facility] Service Area Work Phone: Comment on above:Expected: 02/14/2024 (Approximate), Expires: 02/13/2025Start: 02-14-2024 End: 64-90-2048Fhubyzt encounter qolbrrxfu96/07/2024 2:00 PM EST Office Visit [place] [address] [place] [address] Antonio Steele MD [address] [facility] 2, [address] [place] [address] [facility]: 07-47-1237Wcfmi BMI ScreeningAdult BMI ScreeningChillicothe Hospital SystemStart: 00-87-1232UlicjwnfaKettering Health Miamisburgtart: 13-17-3895MAHDT-19 Vaccine ( season)COVID-19 Vaccine ( season)[facility] WestStstaffordsville: 96-25-3889FKPFF-19 Vaccine ( season)COVID-19 Vaccine ( season)[facility]: 40-32-5816Nxozw-19 Vaccine ( season) Covid-19 Vaccine ( season)[facility]: 97-01-4950RDRHG-19 Vaccine ( season)COVID-19 Vaccine ( season)[facility] WestStstaffordsville: 03-60-9570Qccmswtwl vaccinationMagruder Hospital Start: 26-15-7797Xsjihxv referralUniversity Hospitals [facility] Work Phone: Start: 10-18-2023 End: 26-66-8641Zovnszq encounter ogbouksji61/11/2024 2:40 PM EDT Office Visit [place] [address] [facility] [address] [place] [address] Antonio Steele MD [address] [facility] 2[address] [place] [address] [facility]: 10-08-2023 End: 94-29-342774416819-dtelpdaxlvsmke D3 [Mass/volume] in Serum or PlasmaVITAMIN D 25 HYDROXY Lab Routine Vitamin D deficiency Expected: 10/08/2023 (Approximate), Expires: 5CH[facility] Work Phone: Comment on above:Expected: 10/08/2023 (Approximate), Expires: 07/08/2024Start: 10-08-2023 End: 42-41-5732Wxshz [Mass/volume] in Serum or PlasmaURIC ACID Lab Routine Hyperuricemia Idiopathic chronic gout of multiple sites without tophus Expected: 10/08/2023 (Approximate), Expires: 4CH[facility] Work Phone: Comment on above:Expected: 10/08/2023 (Approximate), Expires: 01/07/2024Start: 10-03-2023 End: 21-36-1284Ofelonb encounter kjelzhxoj83/26/2024 9:30 AM EDT Office Visit [facility] [address] [place] [address] Tarvis Lucas MD [address] [place] [address] [facility] CardiologyStart: 09-01-2023 [facility]: 42-78-5373IgwsqzdbcKettering Health Miamisburgtart: 38-30-5131Zomgqgjrnbb pathogens DNA and RNA panel - Nasopharynx by ROSIE with non-probe detectionKettering Health Miamisburgtart: 08-30-2023 Hospital admissionFirMansfield Hospitaltart: 23-59-9900LbemrkflrKettering Health Miamisburgtart: 86-14-7950Gozjbwnu identified in Blood by Culture Blood CultureKettering Health Miamisburgtart: 94-37-8689Tbfgd culture for bacteria, including anaerobic screenBlood CultureKettering Health Miamisburgtart: 08-16-2023 End: 14-63-5965Qdkfirxucavz / ancillary services ptgcdvkcmu24/09/2024 10:00 AM EDT Ancillary Procedure [facility] [address] [facility] [address] [place] [address] IW [facility] HarrisburgStart: 08-10-2023 End: 35-96-2931PEV 12 LeadECG 12 Lead ECG Routine 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 (Multi) Expected: 08/10/2023 (Approximate), Expires: 07/26/2024[facility] Work Phone: Comment on above:Expected: 08/10/2023 (Approximate), Expires: 07/26/2024Start: 08-08-2023 End: 07-08-2024 reactive protein [Mass/volume] in Serum or PlasmaC-REACTIVE PROTEIN (CRP) Lab Routine Elevated sed rate Elevated C-reactive protein (CRP) Expected: 08/08/2023 (Approximate), Expires: 07/08/2024[facility] Work Phone: Comment on above:Expected: 08/08/2023 (Approximate), Expires: 07/08/2024Start: 08-08-2023 End: 15-84-6242Rjnjvgejmyb sedimentation rateSED RATE WESTERGREN Lab Routine Elevated sed rate Elevated C-reactive protein (CRP) Expected: 08/08/2023 (Approximate), Expires: 07/08/2024[facility] Work Phone: Comment on above:Expected: 08/08/2023 (Approximate), Expires: 07/08/2024Start: 72-30-2314HmtruicngKettering Health Miamisburgtart: 07-27-2023 End: 76-25-2652Veddiiktdumwj ExternalCardioversion External Cardiac Services Routine 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 (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 Expected: 07/27/2023 (Approximate), Expires: 07/26/2025 [facility] Service Area Work Phone: Comment on above:Expected: 07/27/2023 (Approximate), Expires: 07/26/2025Start: 06-14-2023 End: 64-56-1526Gsxkjxb encounter ziwqruzxx73/07/2024 1:00 PM EST Appointment [facility] [address] [place] [phone] Chhaya Whatley MD [address] [place], [place] [phone] [facility] - CVU-IVUStart: 06-04-2023 End: 28-67-2120Rwyfozx encounter beairaldh64/26/2024 2:15 PM EST Office Visit [facility] [address] [place] [phone] Sarai Booth MD [address] [place] [address] [facility] CardiologyStart: 06-04-2023 End: 36-39-4728Qqlhs metabolic 2000 panel - Serum or PlasmaBasic Metabolic Panel Lab Routine Coronary artery disease involving coushatta coronary artery of coushatta heart without angina pectoris Persistent atrial fibrillation ([facility]) Expected: 06/04/2023 (Approximate), Expires: 06/04/2024ProD.W. [facility] Health SystemComment on above:Expected: 06/04/2023 (Approximate), Expires: 06/04/2024Start: 06-04-2023 End: 16-07-0004Rhvgakebegikt externalCardioversion external Cardiac Services Routine Persistent atrial fibrillation ([facility]) Expected: 06/04/2023, Expires: 06/04/2024[facility] Work Phone: Comment on above:Expected: 06/04/2023, Expires: 06/04/2024Start: 06-04-2023 End: 96-37-3555FBJ W Auto Differential panel - BloodCBC auto differential Lab Routine Coronary artery disease involving coushatta coronary artery of coushatta heart without angina pectoris Persistent atrial fibrillation ([facility]) Expected: 06/04/2023 (Approximate), Expires: 06/04/2024ProGrant HospitalSqurl SystemComment on above:Expected: 06/04/2023 (Approximate), Expires: 06/04/2024Start: 05-21-2023 Duplex scan of lower limb veinsUS venous duplex [facility] Southtart: 04-12-2023 End: 356342-iwmkycycwhbohd D3 [Mass/volume] in Serum or PlasmaVITAMIN D 25 HYDROXY Lab Routine Vitamin D deficiency Expected: 04/12/2023 (Approximate), Expires: 01/11/2024[facility] Work Phone: Comment on above:Expected: 04/12/2023 (Approximate), Expires: 01/11/2024Start: 04-12-2023 End: 14-36-5505Eetemlpmp (Vitamin B12) [Mass/volume] in Serum or PlasmaVITAMIN B12 BLOOD Lab Routine Vitamin B12 deficiency Expected: 04/12/2023 (Approximate), Expires: 01/11/2024[facility] Work Phone: Comment on above:Expected: 04/12/2023 (Approximate), Expires: 01/11/2024Start: 02-76-9476Xiledjqhvc Health ScreeningBehavioral Health ScreeningNorwalk Memorial Hospitaltart: 83-01-8041Mbbbebceow AssessmentDepression AssessmentNorwalk Memorial Hospitaltart: 04-06-2023 End: 03-07-2024 reactive protein [Mass/volume] in Serum or PlasmaC-REACTIVE PROTEIN (CRP) Lab Routine PMR (polymyalgia rheumatica) (HCC) Elevated sed rate Elevated C-reactive protein (CRP) Expected: 04/06/2023 (Approximate), Expires: 03/07/2024[facility] Work Phone: Comment on above:Expected: 04/06/2023 (Approximate), Expires: 03/07/2024Start: 04-06-2023 End: 18-51-2089Lgfsbeqgkmz sedimentation rateSED RATE WESTERGREN Lab Routine PMR (polymyalgia rheumatica) (HCC) Elevated sed rate Elevated C-reactive protein (CRP) Expected: 04/06/2023 (Approximate), Expires: 03/07/2024[facility] Work Phone: Comment on above:Expected: 04/06/2023 (Approximate), Expires: 03/07/2024Start: 02-13-2023 End: 16-64-4680CdvmwwovuKettering Health Miamisburgtart: 67-66-1334Zygpcofl therapy procedureKettering Health Miamisburgtart: 02-10-2023 End: 01-11-2024 reactive protein [Mass/volume] in Serum or PlasmaC-REACTIVE PROTEIN (CRP) Lab Routine Elevated sed rate Elevated C-reactive protein (CRP) Expected: 02/10/2023 (Approximate), Expires: 01/11/2024[facility] Work Phone: Comment on above:Expected: 02/10/2023 (Approximate), Expires: 01/11/2024Start: 02-10-2023 End: 92-10-9922Wcctzomwqqn sedimentation rateSED RATE WESTERGREN Lab Routine Elevated sed rate Elevated C-reactive protein (CRP) Expected: 02/10/2023 (Approximate), Expires: 01/11/2024[facility] Work Phone: Comment on above:Expected: 02/10/2023 (Approximate), Expires: 01/11/2024Start: 26-41-0184DtwlynzopKettering Health Miamisburgtart: 91-96-9688AzsfcizreKettering Health Miamisburgtart: 01-05-2023 End: 92-62-963071951529-rdokrjmsdeyvpw D3 [Mass/volume] in Serum or [facility] Work Phone: Comment on above:Expected: 01/05/2023 (Approximate), Expires: 01/06/2024Start: 01-05-2023 End: 11-87-7734Jcntkkws [Enzymatic activity/volume] in Serum or [facility] Work Phone: Comment on above:Expected: 01/05/2023 (Approximate), Expires: 03/07/2023Start: 01-05-2023 End: 04-59-6161TEI BY IFA WITH [facility] Work Phone: Comment on above:Expected: 01/05/2023 (Approximate), Expires: 01/06/2024Start: 01-05-2023 End: 30-68-6553DASGD TB [facility] Work Phone: Comment on above:Expected: 01/05/2023 (Approximate), Expires: 01/06/2024Start: 01-05-2023 End: 35-19-5166Wplhygf hepatitis differentiation between hepatitis B and C virus panel - Serum or PlasmaJ.W. [facility] Work Phone: Comment on above:Expected: 01/05/2023 (Approximate), Expires: 01/06/2024Start: 01-05-2023 End: 92-55-6331Lzjinp citrullinated peptide IgG Ab [Units/volume] in Serum or PlasmaJ.W. Ruby Memorial Hospital Work Phone: Comment on above:Expected: 01/05/2023 (Approximate), Expires: 01/06/2024Start: 13-73-0442Fjvip-19 Vaccine ( season)Covid- 19 Vaccine ( season)[facility]: 59-32-0718Xhnjypant vaccinationNorwalk Memorial Hospitaltart: 63-82-1664Nxcvwxebt complement CH50 level [facility]: 60-73-0286GvdcorjjwKettering Health Miamisburgtart: 44-74-0695Tpkwa X-ray of right shoulderXR shoulder RT min 2V* [facility]: 75-92-7090Dowzk X-ray of left hipXR hip LT min 2V(w/wo pelvis)*[facility]: 04-09-2022 Depression AssessmentDepression AssessmentNorwalk Memorial Hospitaltart: 06-06-2021 Covid-19 Vaccine (4 - Pfizer series)Covid-19 Vaccine (4 - Pfizer series) [facility]: 60-81-9911Qgqeffgyr vaccinationINFLUENZA (Season Ended) [facility]: 20-98-6795Nislsuznb B Vaccines (1 of 3 - Risk 3-dose series)Hepatitis B Vaccines (1 of 3 - Risk 3-dose series)[facility]: 32-75-9829WZV High Risk: (Elderly (60+) or Population) (1 - Risk 60-74 years 1-dose series)RSV High Risk: (Elderly (60+) or Population) (1 - Risk 60-74 years 1-dose series)[facility]: 50-69-4562UXP patients and/or patients aged 60+ years (1 - 1-dose 60+ series)RSV patients and/or patients aged 60+ years (1 - 1-dose 60+ series)[facility]: 95-10-7012BWO Vaccine (1 - 1-dose 60+ series)RSV Vaccine (1 - 1-dose 60+ series)[facility] Start: 22-18-8715RNGPQBPB SCREENDIABETES SCREENNorwalk Memorial Hospitaltart: 12-16-2014 PROSTATE CANCER SCREENING DISCUSSIONPROSTATE CANCER SCREENING DISCUSSION [facility]: 72-00-6477Qzngkavtrrpijz of varicella zoster vaccine Zoster (Shingles) Vaccine (1 of 2)[facility] WITOI SystemStart: 12-16-2009 Pneumococcal Vaccine: 50+ (1 of 1 - PCV)Pneumococcal Vaccine: 50+ (1 of 1 - PCV) [facility]: 62-63-2193Ztmtjgmw specific antigen measurementPSA Prostate Cancer ScreeningUnMetroHealth [facility]: 12-16-2009 Screening for malignant neoplasm of colonNorwalk Memorial Hospitaltart: 12-16-2009 SHINGRIX VACCINE (1 of 2)SHINGRIX VACCINE (1 of 2)[facility]: 25-89-9672Qngdyx Vaccines (1 of 2)Zoster Vaccines (1 of 2)[facility]: 85-35-3552Mtgkrykfz (FIT-DNA)Cologuard (FIT-DNA)[facility]: 04-30-2288IjeyqdfkwjhWaviyiolnsfWaslhiuoh ClinicStart: 12-16-2004 Colorectal Cancer ScreeningColorectal Cancer ScreeningNorwalk Memorial Hospitaltart: 03-08-4916DT COLONOGRAPHYCT COLONOGRAPHYNorwalk Memorial Hospitaltart: 67-84-1441Nlndw Occult BloodFecal Occult BloodNorwalk Memorial Hospitaltart: 89-32-5029Sjtmkpaaa for malignant neoplasm of colonNorwalk Memorial Hospitaltart: 21-05-2455BKIATMEAKBWFT SIGMOIDOSCOPYNorwalk Memorial Hospitaltart: 13-66-2694Wxnbe 1996 panel - Serum or Plasma Lipid ScreeningNorwalk Memorial Hospitaltart: 52-87-5552Swxyh panelLipid Screening [facility]: 14-40-8059EAGZC SCREENLIPID SCREENNorwalk Memorial Hospitaltart: 07-12-0880Ycwgdjwol A Vaccines (1 of 2 - Risk 2-dose series)Hepatitis A Vaccines (1 of 2 - Risk 2-dose series)[facility]: 12-16-1978 Pneumococcal vaccinationPneumococcal Vaccine (1 of 2 - PCV)[facility]: 99-39-8891Fyntg microalbumin profileNorwalk Memorial Hospitaltart: 65-19-0840Irjfn BMI Follow Up PlanAdult BMI Follow Up PlanECU Healthtart: 61-57-6018Zfuwch PCP Team Chronic Disease VisitAnnual PCP Team Chronic Disease VisitNorwalk Memorial Hospitaltart: 80-43-4174Uxutjsz ScreeningAnxiety ScreeningNorwalk Memorial Hospitaltart: 13-73-4844Uynatqlpav ScreeningDepression ScreeningNorwalk Memorial Hospitaltart: 39-27-4627Avfwtiiy mellitus screeningDiabetes ScreeningDayton Children's [facility]: 75-07-5572Gomekcdmw B surface antibody levelLDL CholesterolNorwalk Memorial Hospitaltart: 35-87-2139Gyjeywekg C screeningHepatitis C ScreeningDayton Children's Hospital: 12-16-1978 HIV SCREENINGHIV SCREENINGNorwalk Memorial Hospitaltart: 27-75-1379CUC screeningHIV ScreeningNorwalk Memorial Hospitaltart: 44-47-9813Synqi depression screening assessment DEPRESSION SCREENINGECU Healthtart: 66-29-3745RYGGM-19 VACCINE (1) COVID-19 VACCINE (1)[facility] Hospitalt[facility]: 03-17-1265Bdqkpjlvblsu Vaccine: 65+ Years (1 of 2 - PCV)Pneumococcal Vaccine: 65+ Years (1 of 2 - PCV)[facility]: 77-95-8761Sqztnsuqmrxc Vaccine: Pediatrics (0 to 5 Years) and At-Risk Patients (6 to 64 Years) (1 of 2 - PCV)Pneumococcal Vaccine: Pediatrics (0 to 5 Years) and At-Risk Patients (6 to 64 Years) (1 of 2 - PCV) [facility]: 30-88-3314CZH Vaccines (1 of 1 - Standard series)MMR Vaccines (1 of 1 - Standard series)[facility]: 61-16-5305Efzshw wellness visitMedicare Initial Physical (IPPE) [facility]: 86-88-5108ZQH screeningHIV Screening [facility]: 08-10-4895Dpldd panelLipid Panel [facility]: 09-[facility]1960Medicare Annual Wellness Visit Medicare Annual Wellness Visit (AWV)[facility]: 98-03-1554Fcnmjgtlw for malignant neoplasm of colonUnMetroHealth [facility]: 41-68-1643Pcvxlow stimulating hormone measurementTSH Level [facility] End: 46-97-7678Vlowd metabolic 2000 panel - Serum or PlasmaBasic metabolic panel Lab STAT STAT (Lab) for 1 Occurrences starting 01/29/2024 until 01/29/2024 [facility] Work Phone: Comment on above:STAT (Lab) for 1 Occurrences starting 01/29/2024 until 01/29/2024 End: 37-56-7737Tcbtk metabolic 2000 panel - Serum or PlasmaBasic Metabolic Panel Lab Routine Morning draw (Lab) for 3 Occurrences starting 01/30/2024 until [facility] Work Phone: Comment on above:Morning draw (Lab) for 3 Occurrences starting 01/30/2024 until 02/01/2024 reactive protein [Mass/volume] in Serum or PlasmaC-REACTIVE PROTEIN Lab Routine Elevated sed rate Elevated C-reactive protein (CRP) 06/30/2024 10:15AM [facility]TCbar[facility] End: 57-40-5346Yiejeag catheterization studyCardiac Catheterization Procedure Cardiac Cath Routine Atrial fibrillation, unspecified type (Multi) Once for 1 Occurrences starting 01/29/2024 until 01/29/2024[facility] Service Area Work Phone: Comment on above:Once for 1 Occurrences starting 01/29/2024 until 01/29/2024ardiac catheterization studyCardiac Catheterization Procedure Cardiac Cath Routine Atrial fibrillation, unspecified type (Multi) 01/29/2024 1:18 PM EDTRegency [facility] Work Phone: End: 00-09-5589FXT W Auto Differential panel - BloodCBC and Auto Differential Lab STAT STAT (Lab) for 1 Occurrences starting 01/29/2024 until 01/29/2024 [facility] Work Phone: Comment on above:STAT (Lab) for 1 Occurrences starting 01/29/2024 until 01/29/2024 End: 85-01-5099RRX W Auto Differential panel - BloodCBC and Auto Differential Lab Routine Morning draw (Lab) for 3 Occurrences starting 01/30/2024 until 02/01/2024[facility] Work Phone: Comment on above:Morning draw (Lab) for 3 Occurrences starting 01/30/2024 until 02/01/2024omplement C3 [Mass/volume] in Serum or PlasmaBrecksville Va / Crille HospitalComplement C4 [Mass/volume] in Serum or [facility] HealthCom[facility] metabolic 1999 panel - Serum or PlasmaBrecksville Va / Crille HospitalComprehensive metabolic 1999 panel - Serum or PlasmaCOMPREHENSIVE METABOLIC PANEL Lab Routine Elevated LFTs 06/30/2024 10:15 AM EDTCleveland ClinicCT Abdomen and Pelvis W contrast IV [facility] End: 59-43-5509UG watchman full contrastUNM CHILDREN'S [facility] Service Area Work Phone: Comment on above:Once for 1 Occurrences starting 06/13/2024 until 06/13/2024 End: 19-17-7839VZM-AXIAL SKELETONDXA-AXIAL SKELETON Radiology Routine Steroid- induced osteoporosis 1 Occurrences starting 01/05/2023until 02/04/2024[facility] Work Phone: Comment on above:1 Occurrences starting 01/05/2023 until 02/04/2024 End: 79-05-8912XSA-FOREARM SKELETONDXA-FOREARM SKELETON Radiology Routine Steroid-induced osteoporosis 1 Occurrences starting 01/05/2023 until 02/04/2024 [facility] Work Phone: Comment on above:1 Occurrences starting 01/05/2023 until 02/04/2024 End: 96-96-4857VCS 12 leadReg[facility] Work Phone: Comment on above:Once for 1 Occurrences starting 01/30/2025 until 01/30/2025s needed until discontinued starting 01/30/2025 End: 69-93-1670NWF 12 lead dailyECG 12 lead daily ECG Routine Daily for 3 Days starting 01/29/2024 until 01/31/2024[facility] Work Phone: Comment on above:Daily for 3 Days starting 01/29/2024 until 01/31/2024Electrocardiogram, 12-lead PRN ACS symptomsElectrocardiogram, 12-lead PRN ACS symptoms ECG Routine As needed until discontinued starting 01/29/2024[facility] Work Phone: Comment on above:As needed until discontinued starting 01/29/2024Erythrocyte sedimentation rateSEDIMENTATION RATE, WESTERGREN Lab Routine Elevated sed rate Elevated C-reactive protein (CRP) 06/30/2024 10:15 AM EDTCleveland Clinic End: 59-30-2575Dctauggrq spirometry InstructIncentive spirometry Instruct Respiratory Care Routine Once for 1 Occurrences starting 01/29/2024 until 01/29/2024[facility] Service Area Work Phone: Comment on above:Once for 1 Occurrences starting 01/29/2024 until 01/29/2024 End: 91-72-7533Zfmfxpirg [Mass/volume] in Serum or PlasmaMagnesium Lab STAT STAT (Lab) for 1 Occurrences starting 01/29/2024 until 01/29/2024[facility] Work Phone: Comment on above:STAT (Lab) for 1 Occurrences starting 01/29/2024 until 01/29/2024 End: 05-16-0329Dnuqwhndt [Mass/volume] in Serum or PlasmaMagnesium Lab Routine Morning draw (Lab) for 3 Occurrences starting 01/30/2024 until 02/01/2024 [facility] Work Phone: Comsric on above:Morning draw (Lab) for 3 Occurrences starting 01/30/2024 until 02/01/2024MR Lumbar spine WO and W contrast IV [facility] HospitalPatient EducationSheltering Arms Hospital Ctr Work Phone: Patient referralSheltering Arms Hospital Ctr Work Phone: End: 07-81-3313Xlofditrxoj time (PT)Protime-INR Lab STAT STAT (Lab) for 1 Occurrences starting 01/29/2024 until 01/29/2024[facility] Work Phone: Comment on above:STAT (Lab) for 1 Occurrences starting 01/29/2024 until 01/29/2024 End: 36-25-3568Ynlgsvkcjog time (PT)Protime-INR Lab Routine Morning draw (Lab) for 3 Occurrences starting 01/30/2024 until 02/01/2024[facility] Work Phone: Comment on above:Morning draw (Lab) for 3 Occurrences starting 01/30/2024 until 02/01/2024Smith extractable nuclear Ab [Units/volume] in SerumBrecksville Va / [facility]ille Hospital End: 72-88-0879Kmvti Interpretation of outside [facility] Service Area Work Phone: comment on above:Once for 1 Occurrences starting 01/30/2025 until 01/30/2025SYNOVIAL FLUID CRYSTALS B/OSYNOVIAL FLUID CRYSTALS B/O Lab Routine Swelling of Knee Joint Ordered: 06/01/2009[facility] Comment on above:Ordered: 06/01/2009Urate [Mass/volume] in Serum or PlasmaURIC ACID Lab Routine Hyperuricemia 06/30/2024 10:15 AM EDTCMiller [facility] Immunizations Immunization DateImmunizationNotesCare DgnipbqhVpmstuwp24-94-8350nyrjkdeml, seasonal, injectableAntonio Steeel MD Work Phone: [facility] Work Phone: [phone]ckgmmt virus vaccine, unspecified formulationAntonio Steele MD Work Phone: [facility] Work Phone: [phone]n, injectable, quadrivalent, preservative freeBenjamin Ball Other [facility]12-28-2023influenza virus vaccine, unspecified formulationAntonio Steele MD Work Phone: [facility] Work Phone: [phone]elbuoq, injectable, quadrivalent, contains preservativeRobert [place] II Other noCalibrus [employer] Other [id number] virus vaccine, split virus (incl. purified surface antigen)Jonathan Samano Other [facility] HospitalQtcajq26-66-8000rpcvbrgbq, injectable, quadrivalent, preservative LynseyO Vitaliy Brower Work Phone: [facility]10-31-2022influenza virus vaccine, unspecified formulationHeladio Pineda MD Work Phone: [facility] HospitalAmyefi00-16-3551RIGHP-59 mRNA, Comirnaty (Pfizer)DO Vitaliy Brower Work Phone: [facility]10-12-2021influenza virus vaccine, split virus (incl. purified surface antigen)Jonathan Samano Other [employer] Other [id number] trivalent influenza vaccine, adjuvanted, preservative freeBone [facility] HospitalMtosut29-32-8976cyqfsxvmw virus vaccine, unspecified formulationHeladio Pineda MD Work Phone: [facility]03-19-2021COVID-19 mRNA, Comirnaty (Pfizer)DO Vitaliy Brower Work Phone: [facility]03-09-2021COVID-19 mRNA, Comirnaty (Pfizer)DO Vitaliy Brower Work Phone: [facility]02-26-2021COVID-19 mRNA, Comirnaty (Pfizer)DO Vitaliy Brower Work Phone: [facility]02-05-2021diphtheria, tetanus toxoids and acellular pertussis vaccine, unspecified formulationThomas Felter Other [facility]01-29-2021Kenalog -40 mgThomas Felter Other [employer] Other 10932288-07-5346xomreyhcm virus vaccine, split virus (incl. purified surface antigen)Jonathan Felter Other [facility] HospitalLttmmu28-01-1465vjwkxwehb virus vaccine, unspecified formulationDO [employer] Phone: [facility]07-27-2020Kenalog -40 mgThomas Felter Other [employer] Other [id number] -40 mgThomas Felter Other [employer] Other [id number] virus vaccine, split virus (incl. purified surface antigen)Jonathan Felter Other [facility] HospitalIxhzpi63-27-1596mfwvelpmw virus vaccine, unspecified formulationDO [employer] Phone: [facility]12-31-2018Kenalog -40 mgThomas Felter Other [employer] Other 10-443784-59-8532agfzghwzj virus vaccine, split virus (incl. purified surface antigen)Jonathan Vieiraer Other [employer] Other [id number] virus vaccine, unspecified formulationDO [employer] Phone: [facility]10-15-2018Influenza, injectable, Madin Nolvia Canine Kidney, quadrivalent with preservativeBone Hosp [facility] HospitalFnfgik94-42-6560Ektaofk -40 mgThomas Felter Other [employer] Other [id number] -40 mgThomas Felter Other [employer] Other Payers DatePayer CategoryPayerPolicy [id number] 2023Medicare (Managed Care) [id number] 2023Medicare [facility] MEDICARE [id number] [id number] [id number] 2.840.1.014555.3.579.2.04503-91-1375Elyicqx1480733 2.0.1.579759.3.579.2.50336-04-5349Sawgxag0068236 2.840.1.192647.3.579.2.79846-15-4317Oycpabp4187402 2.16.840.1.704946.3.579.2.49840-68-6278Xtznyfz22376794 2.16.840.1.799186.3.579.2.775786-72-2343Zyghibk02776609 2.16.840.1.436591.3.579.2.336185-41-8493Swmrayj3203546 2.16840.1.870189.3.579.2.816304-23-0467Yymjytr7005689 2.160.1.634567.3.579.2.047889-66-9926Bwusnbc8892773 2..1.113636.3.579.2.439054-39-7355Iivqvhc13297085 2..1.539466.3.579.2.711851-89-3936Qlxcsxp70918793 2..1.294928.3.579.2.628512-22-6470Orcaaar446449792 2..1.178020.3.579.2.408029-86-7345Ahdcajq856727516 2..1.495645.3.579.2.502640-71-1973Hjavhuq031275567 2..1.544403.3.579.2.174309-00-3110Osolprr555208360 2..1.685060.3.579.2.572901-76-9260Atutszy564021156 2..1.495325.3.579.2.550981-52-3666Oqavtxv029335000 2.0.1.708756.3.579.2.194077-27-1052Tiieyqa684322733 2.0.1.505797.3.579.2.014464-50-8386Empapoa097254107 2..1.935028.3.579.2.892375-31-0999Sqforgg18960612 2..1.798151.3.579.2.185 [id number] 2.840.1.742889.19 43-76-1524Evaltsl Health [id number] MCR [id number] c62ri5w5-4226-9r76-b9ln-2q2389p4pw3cDawkzyo46561321 2..1.506689.3.579.2.089Soquxbk04976049 2..1.490196.3.579.2.531 Dmlqpgt40247304 2..1.892747.3.579.2.518Hqddddg32786959 2..1.082662.3.579.2.669Hxzyvck17902790 2.0.1.590629.3.579.2.531 Vnigxxa06521103 2..1.055305.3.579.2.464Nnfrykb46116130 2..1.248961.3.579.2.022Yjvvnvs22469117 2.840.1.946657.3.579.2.531 Wgqrjsu66628705 2.840.1.613021.3.579.2.147Mzcshhe53802991 2.0.1.678942.3.579.2.996Dfefons70363168 2.16.840.1.390250.3.579.2.531 Ueulavz35073460 2.16.840.1.687347.3.579.2.837Abkfefv85994461 2.16.840.1.718822.3.579.2.142Hqzyneq97135434 2.16.840.1.258027.3.579.2.531 Social History DateTypeDetailFacilityTobacco smoking status NHISUnknown if ever smokedNorwalk Memorial Hospitaltart: 14-30-6694Zme Assigned At BirthNot on fileNorwalk Memorial Hospitaltart: 01-05-2023 End: 03-43-8362Guj Assigned At [facility]: 07-04-2021 End: 84-80-4244Ejxtcgg smoking status NHISNever smoked tobacco (finding) [facility]: 15-97-0322Txd Assigned At BirthMalSumma Health Wadsworth - Rittman Medical Centertart: 01-05-2023 End: 98-50-9172Merqtcu intakeCurrent drinker of alcohol (finding)[facility]: 01-05-2023 End: 60-40-8557Qcazazp intakeDayton Children's Hospital: 07-09-2023 National Score (1-100), lower number is lower vdyy81NwtvuhdjzNorwalk Memorial Hospitaltart: 01-02-2023 End: 23-53-5838Iihwshv use and exposureSmokeless tobacco non-userProMedica Health SystemStart: 07-17-2023 End: 47-14-4333Rfvybekg to SARS-CoV-2 (event)Not sureDayton Children's Hospital: 07-09-2023 End: 87-13-3399GtzEmzg (finding)[facility]: 25-56-3213TDHR Follow upSDOH Follow upSheltering Arms Hospital Ctr Work Phone: Medical Equipment Procedure CodeEquipment CodeEquipment Original TextEquipment IdentifierDates Arthroplasty, hip, total, anterior approachAcetabular shell ([id number] FDAStart: 33-85-5372Ahuqfckvjtsz, hip, total, anterior approachCeramic femoral head prosthesis ()[id number] FDAStart: 41-84-8312Vyruscrxlyzv, hip, total, anterior approachCoated hip femur prosthesis, modular ()[id number] FDAStart: 83-99-7745Ckwofrkefzuz, hip, total, anterior approachNon-constrained polyethylene acetabular liner ()[id number] FDAStart: 12-46-5529Pqsftzxpbfax, hip, total, anterior approachAcetabular shell()[id number]([id number])[id number] FDAStart: 61-56-7450Gxavjfvgviwz, hip, total, anterior approachCeramic femoral head prosthesis()[id number](17)[id number])[id number] FDAStart: 02-13-2023 Arthroplasty, hip, total, anterior approachCoated hip femur prosthesis, modular ()[id number])[id number])[id number] FDAStart: 20-86-0586Nthmscaaijbo, hip, total, anterior approachNon-constrained polyethylene acetabular liner ()[id number](17)[id number])[id number] FDAStart: 50-01-8356Snblvx, Closure, 27mm Watchman Flx Pro Laac - [id number]_cjnSjuuu: 01-29-2024 Goals DatePatient GoalDesired Activity/State Functional Status GabfEvucqqxnyyVjsuptXcjhtcna39-77-3761Cnwrkqkpol [facility] Work Phone: [phone]xoukiib statusUnCleveland Clinic Mercy Hospital Work Phone: [phone]h - suicide severity rating scale screener - recent [C-SSRS][facility] Work Phone: [phone]jqf statusPatient at Baseline [facility] Work Phone: [phone] statusPatient at Baseline [facility] Work Phone: [phone] statusPatient at Baseline [facility] Work Phone: [phone] statusPatient at Baseline [facility] Work Phone: [phone]pup statusPatient at Baseline [facility] Work Phone: [phone]eqo statusDisability Status Patient at BaselineUniversity [facility] Work Phone: [phone] you deaf, or do you have serious difficulty hearingNo 11/27/2013 9:53 AM EDT Jessica Shearer (Quality Technician Fiberglass)(Hist) [facility] Work Phone: [phone] you blind, or do you have serious difficulty seeing, even when wearing glassesNo 11/27/2013 9:53 AM EDT Jessica Shearer (Quality Technician [employer])([facility]) [facility]08-21-2014Do you have serious difficulty walking or climbing stairsNo 11/27/2013 9:53 AM EDT Jessica Shearer (Quality Technician [employer]lass)(Hist) [facility]08-21-2014Do you have difficulty dressing or bathingNo 11/27/2013 9:53 AM EDT Jessica Shearer (Quality Technician [employer])([facility]) [facility]08-21-2014 Because of a physical, mental, or emotional condition, do you have difficulty doing errands alone such as visiting a physician's office or shoppingNo 11/27/2013 9:53 AM Jessica Villar (Quality Technician [employer]lass)(Hist) [facility] [place] [place] Mental Status DpsqIpnbkonmjcDopbdxAawhqoae08-36-3046Dhodesdlx functionCognitive Status Patient at [facility] Work Phone: [phone] functionCognitive Status Patient at BaselineUniversity [facility] Work Phone: [phone] functionCognitive Status Patient at [facility] Work Phone: [phone] functionCognitive Status Patient at [facility] Work Phone: [phone] functionCognitive Status Patient at [facility] Work Phone: [phone] of a physical, mental, or emotional condition, do you have serious difficulty concentrating, remembering, or making decisionsNo 11/27/2013 9:53 AM EDT Jessica Shearer (Quality Technician [employer])(Hist) [facility] Clinical Notes 01-05-2021 to 01-30-2025 Note Date & HmarSrrjTpiakeuz25-17-2758 Hospital Discharge instructions* Discharge Instructions* Ric Luna [...] you well! Dr. Luna documented in this [facility] Work Phone: 1(167) 680-347610-24-2025 Consult note* Tyson Perkins MD - 01/30/2025 3:48 AM EDTAssociated Order(s): Inpatient consult to Neurosurgery Images from the original note were not included. NEUROSURGERY CONSULT NOTE Date of Service: 01/30/2025 Attending Provider: Diogo Edge MD Reason for Consultation: Inpatient consult to Neurosurgery Consult performed by: Tyson Perkins MD Consult ordered by: MD Esme Rosasowan is being seen today for a consult requested by Diogo Edge MD for RLE numbness. Subjective History of [...] central cord stenosis and was transferred to [facility]. Patient reports he feels his RLE is [...] 0659 01/29/25 0700 - 01/29/25 1859 01/29/25 190 - 01/30/25 0349 Patient has no LDAs [...] No orders to display Assessment/Plan Assessment: Esme Kaminski 64 y.o. male H/o cardiomegaly, afib, HFrEF [...] team Tyson Perkins MD Department of Neurosurgery [facility] Note authored by resident on neurosurgery team, with all questions [place] [phone] Plan not finalized until note signed by attending [1] Past Medical History: Diagnosis Date Coronary artery disease Hyperlipidemia Hypertension [2] Past Surgical History: Procedure Laterality Date APPENDECTOMY BACK SURGERY CARDIAC CATHETERIZATION N/A 01/29/2024 Procedure: LAAO (Left Atrial Appendage Occlusion); Surgeon: Bird Kowalski MD; Location: [address] Cardiac Records Analyst; Service: Cardiovascular; Laterality: N/A; same day CT 1000 CARDIOVERSION 08/02/2023 CARDIOVERSION 11/19/2024 CARDIOVERSION COLONOSCOPY CORONARY ARTERY BYPASS GRAFT TOTAL HIP ARTHROPLASTY Bilateral TOTAL KNEE ARTHROPLASTY Bilateral [3] [4] [5] Cosigned by Corey Corona MD PhD at 01/30/2025 8:28 AM EDT [facility] Work Phone: 1(288) 988-393110-24-2025 Consult note* Tyson Perkins MD - 01/30/2025 3:48 AM EDTAssociated Order(s): Inpatient consult to Neurosurgery Images from the original note were not included. NEUROSURGERY CONSULT NOTE Date of Service: 01/30/2025 Attending Provider: Diogo Edge MD Reason for Consultation: Inpatient consult to Neurosurgery Consult performed by: Tyson Perkins MD Consult ordered by: Jose Antonio Dias MD Esme Kaminski is being seen today for a consult requested by Diogo Edge MD for RLE numbness. Subjective History of [...] central cord stenosis and was transferred to [facility]. Patient reports he feels his RLE is [...] output data in the 24 hours ending 01/30/25348 VENT SETTINGS: Blood pressure 148/88, pulse 94, temperature 36.7 C (98 F), temperature source Oral, resp. rate 18,height 1.778 m (5' 10 ), weight 96.2 kg (212 lb), SpO2 96%. No intake/output data recorded. No intake/output data recorded. Output by Drain (mL) 01/28/25 0700 - 01/28/25 1859 01/28/25 1900 - 01/29/25 0659 01/29/25 0700 - 01/29/25 1859 01/29/25 1900 - 01/30/25348 Patient has no LDAs of requested type [...] No orders to display Assessment/Plan Assessment: Esme Kaminski 64 y.o. male H/o cardiomegaly, afib, HFrEF [...] team Tyson Perkins MD Department of Neurosurgery [facility] Note authored by resident on neurosurgery team, with all questions [place] [phone] Plan not finalized until note signed by attending [1] Past Medical History: Diagnosis Date Coronary artery disease Hyperlipidemia Hypertension [2] Past Surgical History: Procedure Laterality Date APPENDECTOMY BACK SURGERY CARDIAC CATHETERIZATION N/A 01/29/2024 Procedure: LAAO (Left Atrial Appendage Occlusion); Surgeon: Bird Kowalski MD; Location: [address] Cardiac Records Analyst; Service: Cardiovascular; Laterality: N/A; same day CT 1000 CARDIOVERSION 08/02/2023 CARDIOVERSION 11/19/2024 CARDIOVERSION COLONOSCOPY CORONARY ARTERY BYPASS GRAFT TOTAL HIP ARTHROPLASTY Bilateral TOTAL KNEE ARTHROPLASTY Bilateral [3] [4] [5] Cosigned by Corey Corona MD PhD at 01/30/2025 8:28 AM EDT documented in this encounterUnCleveland Clinic Mercy Hospital Work Phone: 1([phone]) 946-965410-24-2025 Emergency department Triage note* Urmila Burgess RN - 01/30/2025 1:39 AM EDT Pt to ED as a transfer from [facility] for a neurosurgery consult. Pt had epidural 2 weeks ago and is complaining of RLE numbness and pain from buttocks down to his toes. Per OSH MRI shows severe canal narrowing. Pt A&Ox4. [facility] Work Phone: 1(242) 641-627110-24-2025 Emergency department Note* Urmila Burgess RN - 01/30/2025 1:39 AM EDT Pt to ED as a transfer from [facility] for a neurosurgery consult. Pt had epidural 2 weeks ago and is complaining of RLE numbness and pain from buttocks down to his toes. Per OSH MRI shows severe canal narrowing. Pt A&Ox4. documented in this encounterUnCleveland Clinic Mercy Hospital Work Phone: 1(595) 246-130609-15-2025 History of Present illness Narrative* Antonio Steele MD - 12/22/2024 11:30 AM EDT Chief Complaint Patient presents with Follow-up DCC results Subjective Esme Kaminski is a 64 y.o. male HPI Patient [...] By signing my name below, I, Ashly Caceres attest that this documentation has been prepared [...] exam, discussion and plan. [facility] Work Phone: 1(999) 593-271909-15-2025 Instructions* Patient Instructions* Celia Alves LPN - [...] through Care Everywhere. * Heart Healthy Diet (Chinese) documented [facility] Work Phone: 1(218) 314-901409-08-2025 History of Present illness Narrative* Keila Garcia [...] done in office today documented in this [facility] Work Phone: 1(981) 994-543609-04-2025 Progress note Author Antonio Steele [facility] Date/TimeSeptember 2024 9:39am [place] [address] Cardiology Progress Note Signed Patient: Esme Kaminski MR#: [id number] : 1960 Acct:[id number] Age/Sex: 63 / M Adm Date: 5 Loc: Room: [address] [place] [address] Type: ADM IN Attending Dr: Antonio Steele [...] <Electronically signed by MD Antonio Steele> 12/11/24938 [facility] Work Phone: 1(108) 811-871909-04-2025 Procedure [place] [id number] Cardioversion Procedure Note Signed Patient: Esme Kaminski MR#: [id number] : 1960 Acct:[id number] Age/Sex: 63 / M Adm Date: 5 Loc: Room: [address] [place] [address] Type: ADM IN Attending Dr: Antonio Steele [...] By: Antonio Steele MD 12/11/24938 Signed By: 12/11/24 09 [facility]09-04-2025 [place] [address] Cardiology Progress Note Signed Patient: Esme Kaminski MR#: [id number] : 1960 Acct:[id number] Age/Sex: 63 / M Adm Date: 5 Loc: Room: [address] [place] [address] Type: ADM IN Attending Dr: Antonio Steele [...] and agreed Documented By: Antonio Steele MD 12/11/2438 Signed By: 12/11/24 0939 [facility]09-03-2025 Progress note Author Antonio Steele [facility] Date/TimeSeptember 2024 11:34am [place] [address] Cardiology Progress Note Signed Patient: Esme Kaminski MR#: [id number] : 1960 Acct:[id number] Age/Sex: 63 / M Adm Date: 5 Loc: Room: [address] [place] [address] Type: ADM IN Attending Dr: Antonio Steele [...] signed by MD Antonio Steele> 12/10/24 113 [facility] Work Phone: 1(125) 830-639509-03-2025 [place] [address] Cardiology Progress Note Signed Patient: Esme Kaminski MR#: [id number] : 1960 Acct:[id number] Age/Sex: 63 / M Adm Date: 5 Loc: Room: [address] [place] [address] Type: ADM IN Attending Dr: Antonio Steele [...] MD 12/10/24 1133 Signed By: 12/10/24 1134 [facility]09-02-2025 History and physical note Author Antonio Steele [facility] Date/TimeSeptember 2024 12:08pm [place] [address] Cardiology H&P Signed Patient: Esme Kaminski MR#: [id number] : 1960 Acct:[id number] Age/Sex: 63 / M Adm Date: 5 Loc: Room: [address] [place] [address] Type: ADM IN Attending Dr: Antonio Steele MD Copies to: Vitaliy Brower,DO Antonio Steele MD~ Date of Service: 12/09/2024 Cardiology HPI History of Present Illness Chief complaint: Elective admission for atrial fibrillation for dofetilide load HPI: Mr. Kaminski is a 63 year old male with [...] of systems: Palpitation and shortness of breath [facility] Medical History (Updated 12/09/24 @ 12:08 [...] signed by MD Antonio Steele> 12/09/24 1208 [facility] Work Phone: 1(508) 329-596609-02-2025 [place] [address] Cardiology H&P Signed Patient: Esme Kaminski MR#: [id number] : 1960 Acct:[id number] Age/Sex: 63 / M Adm Date: 5 Loc: Room: [address] [place] [address] Type: ADM IN Attending Dr: Antonio Steele MD Copies to: DO Antonio Hannah MD~ Date of Service: 12/09/2024 Cardiology HPI History of Present Illness Chief complaint: Elective admission for atrial fibrillation for dofetilide load HPI: Mr. Kaminski is a 63 year old male with [...] of systems: Palpitation and shortness of breath [facility] Medical History (Updated 12/09/24 @ 12:08 [...] MD 12/09/24 1158 Signed By: 12/09/24 1208 [facility]-02-2025 Evaluation note* Diagnosis Onset Date Resolution Status Admit Date Persistent atrial fibrillation acuteSept2024 8:11amOther spondylosis with radiculopathy, lumbar regionacuteSept2024 10:51amLow back paindeletedSept2024 10:51amOther chronic paindeletedSept2024 10:51amAcute bronchitis due to other specified organismsacutept2024 9:33amRib fractureacute December 26, 2024 9:33amLaceration of leg excluding thigh, with complication noneactiveSept2024 9:33amCellulitis of leg without foot, left noneactiveSept2024 9:33amOther spondylosis with radiculopathy, lumbar regionacuteSeptember 2024 9:45amLow back paindeletedSeptember 2024 9:45amOther chronic paindeletedSeptember 2024 9:45amGreater trochanteric bursitis of right hipacuteOctober 2024 12:22pmHistory of total right hip arthroplastyacuteOctober 2024 12:22pmASHD (arteriosclerotic heart disease)acuteOctober 2024 2:23pmLow back pain radiating to right legacute January 12, 2025 2:23pmNonhealing ulcer of left lower legacuteOctober 2024 2:23pmType 2 diabetes mellitus with hyperglycemiaacuteOctober 2024 2:23pm [facility] Work Phone: 1(212) 847-877109-02-2025 Evaluation note* Diagnosis Onset Date Resolution Status [...] 10:02amOther chronic paindeleted January 29, 2025 10:02am [facility] Work Phone: 1(433) 705-686009-02-2025 Evaluation note* Diagnosis Onset Date Resolution Status Admit Date Persistent atrial fibrillation acuteSeptember 2024 8:11amLow back paindeletedSeptember 2024 10:51am Other chronic [...] disease)acuteOctober 2024 2:23pmNonhealing ulcer of left lower legacute January 12, 2025 2:23pmType 2 diabetes mellitus with hyperglycemiaacuteOctober 2024 2:23pmLow back pain radiating to right legdeletedOctober 2024 2:23pmLow back paindeletedOctober 2024 10:02amOther chronic paindeleted January 29, 2025 10:02amOther spondylosis with radiculopathy, lumbar region deletedOctober 2024 10:02amASHD (arteriosclerotic heart disease)acute February 02, 2025 1:53pmLumbosacral spondylosis with radiculopathyacuteOctober 2024 1:53pmNonhealing ulcer of left lower legacuteOctober 2024 1:53pmType 2 diabetes mellitus with hyperglycemiaacuteOctober 2024 1:53pm [facility] Work Phone: 1(860) 315-552309-02-2025 Evaluation note* Diagnosis Onset Date Resolution Status Admit Date Persistent atrial fibrillation acuteSeptember 2024 8:11amLow back paindeletedSeptember 2024 10:51am Other chronic [...] disease)acuteOctober 2024 2:23pmNonhealing ulcer of left lower legacute January 12, 2025 2:23pmType 2 diabetes mellitus with hyperglycemiaacuteOctober 2024 2:23pmLow back pain radiating to right legdeletedOctober 2024 2:23pmLow back paindeletedOctober 2024 10:02amOther chronic paindeleted January 29, 2025 10:02amOther spondylosis with radiculopathy, lumbar region deletedOctober 2024 10:02amASHD (arteriosclerotic heart disease)acute February 02, 2025 1:53pmLumbosacral spondylosis with radiculopathyacuteOctober 2024 1:53pmNonhealing ulcer of left lower legacuteOctober 2024 1:53pmType 2 diabetes mellitus with hyperglycemiaacuteOctober 2024 1:53pm Chronic HFrEF (heart failure with reduced ejection fraction)acuteNov2024 3:01pmLumbosacral spondylosis with radiculopathyacuteNovember 2024 3:01pmPulsatile mass of left upper extremityacuteNovember 2024 3:01pm [facility] Work Phone: 1(399) 612-561908-13-2025 History of Present illness Narrative* Antonio Steele MD - 11/19/2024 12:50 PM EDT Chief Complaint Patient presents with Follow-up 3 months dcc Subjective Esme Kaminski is a 63 y.o. male HPI Patient [...] systolic dysfunction I suggested trial of low-dose [id number] mg daily. I advised him to monitor [...] Scribe Attestation By signing my name below, IJasmine LPN, Scribe attest that this documentation has [...] exam, discussion and plan. documented in this [facility] Work Phone: 1(403) 650-731308-13-2025 Instructions* Patient Instructions* Jasmine Coello LPN - [...] cardioversion( in 3 weeks) documented in this [facility] Work Phone: 1(133) 312-541407-17-2025 Evaluation note* Diagnosis Onset Date Resolution Status Admit Date Greater trochanteric bursitis of right h ip acuteJuly 2024 1:54pmHistory of total right hip arthroplastyacuteJuly 2024 1:54pmPersistent atrial fibrillationacuteSept2024 8:11am Low back painacuteSept2024 10:51amOther chronic painacuteSept2024 10:51amOther spondylosis with radiculopathy, lumbar regionacute December 15, 2024 10:51amAcute bronchitis due to other specified organisms acuteSeptember 2024 9:33amRib fractureacuteSept2024 9:33am Laceration of leg excluding thigh, with complicationnoneactiveSept2024 9:33amCellulitis of leg without foot, leftnoneactiveSeptember 2024 9:33amLow back painacuteSeptember 2024 9:45amOther chronic painacute January 05, 2025 9:45amOther spondylosis with radiculopathy, lumbar region acuteSeptember 2024 9:45amGreater trochanteric bursitis of right hipacute January 07, 2025 12:22pmHistory of total right hip arthroplastyacuteOct2024 12:22pm [facility] Work Phone: 1(225) 987-443607-02-2025 Evaluation note* Diagnosis Onset Date Resolution Status [...] leg without foot, left noneactiveSeptember 2024 9:33am [facility] Work Phone: 1(422) 473-605907-02-2025 Evaluation note* Diagnosis Onset Date Resolution Status [...] to other specified organismsacuteSeptember 2024 9:33amRib fractureacute Lola 2024 9:33amLaceration of leg excluding thigh, with complication noneactiveSeptember 2024 9:33amCellulitis of leg without foot, left noneactiveSept2024 9:33amLow back painacuteSeptember 2024 9:45amOther chronic painacuteSeptember 2024 9:45amOther spondylosis with radiculopathy, lumbar regionacuteSeptember 2024 9:45am [facility] Work Phone: 1(560) 752-515006-25-2025 Consult note Author Lala Arce [facility] Date/TimeJune 2024 11:38[place] [id number] Cardiology Consult Note Signed Patient: Esme Kaminski MR#: [id number] : 1960 Acct:[id number] Age/Sex: 63 / M Adm Date: 5 Loc: 3T Room: [address] [place] [address] Type: ADM INOo Attending Dr: Leidy Nuno DO Copies to: DO Lala Hannah MD, [facility] Leidy Nuno DO~ Cardiology HPI History of Present Illness Consult Date: 10/01/24 Reason for Consult: Hypotension HPI: Mr. Kaminski is a 63 year old male who is being seen at request of the hospitalist for hypotension. The patient was discharged [facility] hours from [facility] after having admission for chest pain leading to diagnostic heart catheterization which revealed patent for coronary bypass farooq rgery grafts including RIVAS graft to the LAD, saphenous vein graft to diagonal, saphenous vein graft to obtuse marginal, saphenous vein graft to the RCA. His [place] coronary arteries were occluded. Ejection fraction measured [...] that will be directed by his primary water technician. Review of Systems Review of Systems Review of systems: 10 point review of system outside of what is covered above in HPI was unremarkable [facility] Medical History (Updated 10/01/24 @ 11:35 [...] Lymph # (Auto) 1.9 2.2 (1.00-4.8) x10E3/uL Johnson # (Auto) 0.7 1.1 H (0.0-0.8) x10E3/uL [...] ml @ 999 mls/hr IV .Q31M ONE Rx#:[id number] Oral 250 / 250 Other: # Unmeasured [...] device: Assessment/Problem Details: Placed in 2023 at [facility] Plan: Continue to be monitored, continue baby [...] Code(s): I25.10 - Atherosclerotic heart disease of [place] coronary artery without angina pectoris (7) Persistent atrial fibrillation: Assessment/Problem Details: Not very symptomatic but in the presence of severe LV systolic dysfunction religious of normal sinus rhythm is desirable Plan: [...] Ischemic cardiomyopathy Documented By: Lala Arce MD, [facility] 5 1127 Signed By: <Electronically signed by [facility]ITALMarvin Arce> 10/01/24 1138 [facility] Work Phone: 1(644) 648-614006-25-2025 [place] [address] Hospitalist H&P Signed Patient: Esme Kaminski MR#: [id number] : 1960 Acct:[id number] Age/Sex: 63 / M Adm Date: 5 Loc: Room: [address] [place] [address] Type: ADM INOo Attending Dr: Leidy Nuno DO Copies to: DO Ada Hannah APRN Leidy Nuno DO~ [facility] DATE OF EXAMINATION: 09/30/24 CHIEF COMPLAINT: Presyncope HISTORY OF PRESENT ILLNESS: Mr Esme Kaminski is a 63-year-old male with a past [...] obtained, negative unless noted in the HPI [facility] Source: Old Records Reviewed Medical History [...] % (Auto) 11.5 % (.) 09/30/24 14:21 Johnson % (Auto) 3.9 % (.) 09/30/24 14:21 Eos % (Auto) 0.2 % (.) 09/30/24 14:21 Baso % (Auto) 0.6 % (.) 09/30/24 14:21 Nucleat RBC Rel Count 0.1 /100 WBC (0-0.5) 09/30/24 14:21 Neut # (Auto) 14.2 x10E3/uL (1.8-7.7) H 09/30/24 14:21 Lymph # (Auto) 1.9 x10E3/uL (1.00-4.8) 09/30/24 14:21 Johnson # (Auto) 0.7 x10E3/uL (0.0-0.8) 09/30/24 14:21 [...] 1604 Signed By: 09/30/24 1653 10/01/24 1317 [facility]06-25-2025 [place] [address] Cardiology Consult Note Signed Patient: Esme Kaminski MR#: [id number] : 1960 Acct:[id number] Age/Sex: 63 / M Adm Date: 5 Loc: Room: [address] [place] [address] Type: ADM INOo Attending Dr: Leidy Nuno DO Copies to: DO Lala Hannah MD, [facility] Leidy Nuno DO~ Cardiology HPI History of Present Illness Consult Date: 10/01/24 Reason for Consult: Hypotension HPI: Mr. Kaminski is a 63 year old male who is being seen at request of the hospitalist for hypotension. The patient was discharged 48 hours from [facility] after having admission for chest pain leading to diagnostic heart catheterization which revealed patent for coronary bypass farooq rgery grafts including RIVAS graft to the LAD, saphenous vein graft to diagonal, saphenous vein graft to obtuse marginal, saphenous vein graft to the RCA. His [place] coronary arteries were occluded. Ejection fraction measured [...] that will be directed by his primary water technician. Review of Systems Review of Systems Review of systems: 10 point review of system outside of what is covered above in HPI was unremarkable [facility] Medical History (Updated 10/01/24 @ 11:35 [...] Lymph # (Auto) 1.9 2.2 (1.00-4.8) x10E3/uL Johnson # (Auto) 0.7 1.1 H (0.0-0.8) x10E3/uL [...] ml @ 999 mls/hr IV .Q31M ONE Rx#:[id number] Oral 250 / 250 Other: # Unmeasured [...] device: Assessment/Problem Details: Placed in 2023 at [facility] Plan: Continue to be monitored, continue baby [...] Code(s): I25.10 - Atherosclerotic heart disease of [place] coronary artery without angina pectoris (7) Persistent atrial fibrillation: Assessment/Problem Details: Not very symptomatic but in the presence of severe LV systolic dysfunction religious of normal sinus rhythm is desirable Plan: [...] Ischemic cardiomyopathy Documented By: Lala Arce MD, [facility] 5 1127 Signed By: 10/01/24 1138 [facility]06-24-2025 Radiology Diagnostic study note [facility] Main [place] [address] [place] [address] CT Scan Report Signed Patient: Esme Kaminski MR#: [id number] : 1960 Acct:[id number] Age/Sex: 63 / M ADM Date: 5 Loc: ER Room: Type: [facility] ER Attending Dr: Copies to: Radha [...] Paul M.D. 09/30/2024 4:34 PM Dictation Location: [place] [address] Transcribed By: [facility] 09/30/24 1634 Dictated By: Ap Paul MD 09/30/24 1630 Signed By: 09/30/24 1636 [facility] Work Phone: 1(523) 952-218206-23-2025 Evaluation note* Diagnosis Onset Date Resolution Status [...] 1:54pmPersistent atrial fibrillationacute December 09, 2024 8:11am [facility] Work Phone: 1(181) 914-882006-23-2025 Evaluation note* Diagnosis Onset Date Resolution Status [...] 2024 1:53pmHypothyroidacuteJuly 2024 1:53pmOSA (obstructive sleep apnea)acute Cece 2024 1:53pmPseudogoutacuteJuly 2024 1:53pmGreater trochanteric bursitis of right hipacuteJuly 2024 1:54pmHistory of total right hip arthroplastyacuteJuly 2024 1:54pmPersistent atrial fibrillationacute December 09, 2024 8:11amGreater trochanteric bursitis of right hipacute December 15, 2024 10:51amOther chronic painacuteSeptember 2024 10:51am Other spondylosis with radiculopathy, lumbar regionacuteSept2024 10:51am [facility] Work Phone: 1(432) 408-524706-23-2025 Evaluation note* Diagnosis Onset Date Resolution Status [...] December 26, 2024 9:33amChest painnoneactiveSeptember 2024 9:33am [facility] Work Phone: 1(458) 900-581506-20-2025 Telephone encounter Note* Telephone Encounter - Debra Gee RN - 09/26/2024 3:36 PM EDT Pt returning call Read message below Voiced understanding No further questions [facility]06-20-2025 Miscellaneous Notes* Telephone Encounter - Debra Gee RN - 09/26/2024 3:36 PM EDT Pt [...] osteoarthritis/PMR/gout in 6-12months Thankyou. documented in [facility]06-20-[facility] Instructions* Patient Instructions* Heladio Pineda MD [...] touching your toes, sit-ups, using row machine [facility] pain recommendations per primary care provider/pain clinic Nonfasting labs as scheduled Thank you! documented in [facility]06-[facility] Telephone encounter Note * Telephone Encounter - Melany Pearson MA - 09/26/2024 12:56 PM EDT LMTCB [facility]-20-2025 NoteHNO ID: [id number] Author: HELADIO PINEDA MD Service: ? Author [...] visit. Either the patient or their legal textile machinery sales representative has been informed of the [...] vomiting, night sweats, scalp tenderness, visual changes, owusu, bowel/bladder changes, weight changes or other complaints. 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 Tried mobic this week mild response. Likes [...] vomiting, night sweats, scalp tenderness, visual changes, owusu, bowel/bladder changes, weight changes or other complaints. Last visit supportive care, history of 40mg kenalog IM with nurse, see cardiology, improved with medrol 2tabs daily /increase if high APRs/taper monthly when stable and if tolerated, see ortho s/p R THR, due for possible left rotator cuff tear repair (stress dose steroids), then may consider trial of dmards/k (more content not included)...[facility]06-20-2025 History of Present illness Narrative* Heladio [...] visit. Either the patient or their legal textile machinery sales representative has been informed of the [...] vomiting, night sweats, scalp tenderness, visual changes, owusu, bowel/bladder changes, weight changes or other complaints. [...] if PMR recurs may consider trial of dmards/sayza/did discuss with patient, OFF prednisone due to [...] hands, hips, knees, allover, worse when sitting [facility]. Tried mobic this week mild response. Likes [...] vomiting, night sweats, scalp tenderness, visual changes, owusu, bowel/bladder changes, weight changes or other complaints. [...] vomiting, night sweats, scalp tenderness, visual changes, owusu, bowel/bladder changes, weight changes or other complaints. [...] vomiting, night sweats, scalp tenderness, visual changes, owusu, bowel/bladder changes, weight changes or other complaints. [...] vomiting, night sweats, scalp tenderness, visual changes, owusu, bowel/bladder changes, weight changes or other complaints. [...] aggravating triggers January 05, 2023 SUBJECTIVE Mr. Kaminski is a 62 year old male who [...] vomiting, night sweats, scalp tenderness, visual changes, owusu, bowel/bladder changes, weight changes or other complaints. 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 Mild narrowing of the [...] of multiple sites M35.3 PMR (polymyalgia rheumatica) ([facility]) R76.8 CHENCHO positive M79.641, M79.642 Bilateral hand pain Z79.899 Long-term use of high-risk medication M25.551, M25.552, G89.29 Chronic hip pain, bilateral M12.812 Rotator cuff arthropathy of left shoulder Z79.52 group home current use of 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 M79.89 Bilateral hand swelling M25.561, M25.562, G89.29 Chronic pain of both knees R29.898 Leg weakness, bilateral M54.50, G89.29 Chronic bilateral low back pain without sciatica Mr. 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 Tried mobic few weeks ago with mild [...] touching your toes, sit-ups, using row machine machine long goods helper pain recommendations per primary care provider/pain clinic [...] video & audio (virtual) or phone or pehd-ir-brrg patient care, completing clinical documentation, obtaining and/or [...] the pleasure of seeing your patient, Esme Kaminski. I have enclosed a copy of my [...] cc Vitaliy Brower DO documented in this encounterMag[facility]06-[facility]25 Telephone encounter Note * Telephone Encounter [...] on a speedy recovery! Warm regards, :) [facility]06-19-2025 Telephone encounter Note* Telephone Encounter - [...] he will walk in and do them [facility]06-07-2025 Telephone encounter Note* Telephone Encounter - Heladio Pineda MD - 09/13/2024 10:21 AM EDT Please call patient to schedule Nonfasting labs Follow up for osteoarthritis/PMR/gout in 6-12months Thankyou. [facility]06-07-2025 Instructions* Patient Instructions* Heladio Pineda MD [...] touching your toes, sit-ups, using row machine [facility] pain recommendations per primary care provider/pain clinic Nonfasting labs as scheduled Thank you! documented in this encounterMag[facility]06-[facility]-2025 History of Present illness Narrative* Heladio [...] visit. 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 Tried mobic this week mild response. Likes celebrex better and wants to restart celebrex. Reports pain 6-10. Has minimal AM stiffness. 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 Feels safe at home. Has enough food, supplies and medications. Overall mildly uncomfortable but happy with rheum care. No falls/fx/trauma/illness/oral sores/rash/hairloss/jaw pain/dysphagia/epistaxis/hemoptysis since last visit. No adverse effects with meds. No other complaints. Patientdenies fever, chills, cp, dyspnea, nausea, vomiting, night sweats, scalp tenderness, visual changes, owusu, bowel/bladder changes, weight changes or other complaints. [...] vomiting, night sweats, scalp tenderness, visual changes, owusu, bowel/bladder changes, weight changes or other complaints. [...] vomiting, night sweats, scalp tenderness, visual changes, owusu, bowel/bladder changes, weight changes or other complaints. [...] -07/17. Has minimal AM stiffness. COVID vaccine 2/26/21, 06/25/20, 04/11/21. Feels safe at home. Has enough food, supplies and medications. Overall mildly uncomfortable but happy with rheum care. No falls/fx/trauma/illness/oral sores/rash/hairloss/jaw pain/dysphagia/epis taxis/hemoptysis since last visit. No adverse effects with meds. No other complaints. Patient denies fever, chills, cp, dyspnea, nausea, vomiting, night sweats, scalp tenderness, visual changes, owusu, bowel/bladder changes, weight changes or other complaints. [...] aggravating triggers January 05, 2023 SUBJECTIVE Mr. Kaminski is a 62 year old male who [...] vomiting, night sweats, scalp tenderness, visual changes, owusu, bowel/bladder changes, weight changes or other complaints. 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 Mild narrowing of the [...] M25.552, G89.29 Chronic hip pain, bilateral Mr. Kaminski is a 63 year old Wmale with [...] hands, hips, knees, allover, worse when sitting [facility]. Tried mobic this week mild response. Likes [...] touching your toes, sit-ups, using row machine [facility] pain recommendations per primary care provider/pain clinic [...] via video& audio (virtual) or phone or ngmu-ex-lswx patient care, completing clinical documentation, obtaining and/or [...] the pleasure of seeing your patient, Esme Kaminski. I have enclosed a copy of my [...] cc Vitaliy Brower DO documented in this encounterMag[facility] Hospital06-07-2025 NoteHNO ID: [id number] Author: HELADIO PINEDA MD Service: ? Author [...] visit. 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 Tried mobic this week mild response. Likes [...] vomiting, night sweats, scalp tenderness, visual changes, owusu, bowel/bladder changes, weight changes or other complaints. [...] rheum care. No falls/f (more content not included)...[facility] 09-09-[address] [address] Cardioversion Procedure Note Signed Patient: Esme Kaminski MR#: [id number] : 1960 Acct:[id number] Age/Sex: 63 / M Adm Date: 5 Loc: Room: Type: [facility] Attending Dr: Antonio Steele MD [...] MD 09/09/24 1228 Signed By: 09/09/24 1230 [facility]05-27-2025 Telephone encounter Note* Telephone Encounter - Ileana Strong - 09/02/2024 10:41 AM EDT Patient scheduled on 09/13/2024 [facility]05-27[facility] Miscellaneous Notes* Telephone Encounter - Ileana Strong - 09/02/2024 10:41 AM EDT Patient scheduled on 09/13/2024 * Telephone Encounter - Heladio Pineda MD - 08/31/2024 1:09 PM EDT Please call patent To schedule nonfasting labs Active in 07/2024. Ok to complete at [facility]. Please schedule earlier follow up visit for PMR May offer Sat[facility] Clinic (virtual/phone only) 09/13/24 and 10/11/24 are open. Thank you. documented in this encounterMagruder Hospital05-25-2025 Telephone encounter Note * Telephone Encounter - Heladio Pineda MD - 08/31/2024 1:09 PM EDT Please call patent To schedule nonfasting labs Active in 07/2024. Ok to complete at [facility]. Please schedule earlier follow up visit for PMR May offer Sat. Clinic (virtual/phone only) 09/13/24 and 10/11/24 are open. Thank you. [facility]05-16[facility] History of Present illness Narrative* Antonio Steele MD - 08/22/2024 9:00 AM EDT Chief Complaint Patient presents with Follow-up 6 month follow up for cardiomyopathy Subjective Esme Kaminski is a 63 y.o. male HPI Patient [...] of breath. His recentstress test showed inferolateral FL with mild area of ashia-infarction ischemia 3. [...] exam, discussion and plan. documented in this [facility] Work Phone: 1(695) 594-716205-16-2025 Instructions* Patient Instructions* Zo Castro LPN - [...] through Care Everywhere. * Heart Healthy Diet (Chinese) documented in this [facility] Work Phone: [phone]) 505-448104-23-2025 Evaluation note* Diagnosis Onset Date Resolution Status [...] 3:07amAcute hypotensionacuteJune 2024 4:14pm MIESHA (acute kidney injury)acuteJune 2024 4:14pmASHD (arteriosclerotic heart disease)acuteJune 2024 4:14pmAtypical chest painacuteJune 2024 4:14pmBlurred vision, bilateralacuteJune 2024 4:14pmHypercholesterolemia acuteJune 2024 4:14pmIschemic cardiomyopathyacuteJune 2024 4:14pm Persistent atrial fibrillationacuteJune 2024 4:14pmPre-syncopeacuteJune 2024 4:14pmPresence of Watchman left atrial appendage closure deviceacute September 30, 2024 4:14pmPrimary hypertensionacuteJune 2024 4:14pm [facility] Work Phone: 1(336) 165-572304-23-2025 Evaluation note* Diagnosis Onset Date Resolution Status [...] painresolvedJune 2024 3:07amASHD (arteriosclerotic heart disease)acuteJun2024 4:14pmHypercholesterolemia acuteJune 2024 4:14pmPresence of Watchman left atrial appendage closure deviceacuteJun2024 4:14pmAcute hypotensionresolvedJun2024 4:14pm MIESHA (acute kidney injury)resolvedJun2024 4:14pmAtypical chest pain resolvedJune 2024 4:14pmBlurred vision, bilateralresolvedJun2024 4:14pmPre-syncoperesolvedJune 2024 4:14pmIschemic cardiomyopathyinactive September 30, 2024 4:14pmPersistent atrial fibrillationinactiveJune 2024 4:14pmPrimary hypertensioninactiveJun2024 4:14pmASHD (arteriosclerotic heart disease)acuteJuly 2024 1:53pmAtrial fibrillationacuteJuly 2024 1:53pmGAD (generalized anxiety disorder)acuteJuly 2024 1:53pm HypercholesterolemiaacuteJuly 2024 1:53pmHypothyroidacuteJuly 2024 1:53pmOSA (obstructive sleep apnea)acuteJuly 2024 1:53pm [facility] Work Phone: 1(883) 377-439504-23-2025 Evaluation note* Diagnosis Onset Date Resolution Status [...] injury)resolvedJun2024 4:14pmAtypical chest pain resolvedJun2024 4:14pmBlurred vision, bilateralresolvedJun2024 4:14pmPre-syncoperesolvedJun2024 4:14pmIschemic cardiomyopathyinactive September 30, 2024 4:14pmPersistent atrial fibrillationinactiveJun2024 4:14pmPrimary hypertensioninactiveCar[facility]20[facility] 4:14pmASHD (arteriosclerotic heart disease)acuteJuly 2024 1:53pmAtrial fibrillationacuteJuly 2024 1:53pmChronic HFrEF (heart failure with reduced ejection fraction)acuteJuly 2024 1:53pmGAD (generalized anxiety disorder)acuteJuly 2024 1:53pm HypercholesterolemiaacuteJuly 2024 1:53pmHypothyroidacuteJuly 2024 1:53pmOSA (obstructive sleep apnea)acuteJuly 2024 1:53pmPseudogoutacuteJuly 2024 1:53pmGreater trochanteric bursitis of right hipacuteJuly 2024 1:54pmHistory of total right hip arthroplastyacuteJuly 2024 1:54pm [facility] Work Phone: 1(440) 568-624403-31-2025 Telephone encounter Note* Telephone Encounter - Heladio [...] above. Please process accordingly. Heladio Pineda MD [facility]03-[facility] Miscellaneous Notes* Telephone Encounter - Heladio [...] accordingly. Heladio Pineda MD documented in this encounterMagruder Hospital03-25-2025 Evaluation note* Diagnosis Onset Date Resolution Status Admit Date ASHD (arteriosclerotic heart disease) [facility] 2024 1:11pmGAD (generalized anxiety disorder)[facility] 2024 1:11pmGastroesophageal reflux disease with esophagitis without hemorrhage [facility] 2024 1:11pmHypothyroidacute[facility] 1:11pmMacrocytosis without anemiaYadkin [facility] 2024 1:11pm [facility] Work Phone: 1(387) 844-609003-25-2025 Evaluation note* Diagnosis Onset Date Resolution Status Admit Date ASHD (arteriosclerotic heart disease) [facility] 2024 1:11pmGAD (generalized anxiety disorder)[facility] 2024 1:11pmGastroesophageal reflux disease with esophagitis without hemorrhage acuteMarch 2024 1:11pmHypothyroidacuteMarch 2024 1:11pmMacrocytosis without anemiaacuteMarch 2024 1:11pmPurpura of skin due to vascular fragilityacuteApril 2024 9:44amAbdominal painnoneactiveApril 2024 9:44amDiverticulitis large intestinenoneactiveApril 2024 9:44am [facility] Work Phone: 1(842) 244-294703-25-2025 Evaluation note* Diagnosis Onset Date Resolution Status Admit Date ASHD (arteriosclerotic heart disease) acuteMar2024 1:11pmGAD (generalized anxiety disorder)acuteMarch 2024 1:11pmGastroesophageal reflux disease with esophagitis without hemorrhage acuteMarch 2024 1:11pmHypothyroidacuteMarch 2024 1:11pmMacrocytosis without anemiaacuteMarch 2024 1:11pmPurpura of skin due to vascular fragilityacuteApril 2024 9:44amAbdominal painnoneactiveApril 2024 9:44amDiverticulitis large intestinenoneactiveApril 2024 9:44amContusion of left handacuteApril 2024 9:03amLeft hand painacuteApril 2024 9:03amPrimary osteoarthritis, right handacuteApril 2024 9:03am [facility] Work Phone: 1([phone]) 507-961803-25-2025 Evaluation note* Diagnosis Onset Date Resolution Status [...] replacement of left hip jointacuteApril 2024 11:36am [facility] Work Phone: 1([phone]) 224-572503-25-2025 Evaluation note* Diagnosis Onset Date Resolution Status Admit Date ASHD (arteriosclerotic heart disease) acuteMarch 2024 1:11pmGAD (generalized anxiety disorder)[facility] 1:11pmGastroesophageal reflux disease with esophagitis without hemorrhage acuteKind[facility] 20[facility] 1:11pmHypothyroidacuteMarch 2024 1:11pmMacrocytosis without anemiaacuteJunch 2024 1:11pmPurpura of skin due to vascular fragilityacuteApril 2024 9:44amAbdominal painnoneactiveApril 2024 9:44amDiverticulitis large intestinenoneactiveApril 2024 9:44amContusion of left handacuteApril 2024 9:03amLeft hand painacuteApril 2024 9:03amPrimary osteoarthritis, right handacuteApril 2024 9:03amContusion of left thighacuteApril 2024 11:36amHistory of revision of total replacement of left hip jointacuteApril 2024 11:36amAtrial fibrillationacuteMay 2024 12:48pmChest painacuteMay 2024 12:48pmUnstable anginaacuteMay 2024 12:48pm [facility] Work Phone: 1(434) 313-782803-25-2025 Evaluation note* Diagnosis Onset Date Resolution Status Admit Date ASHD (arteriosclerotic heart disease) [facility] 20[facility] 1:11pmGAD (generalized anxiety disorder)acuteMarch 2024 1:11pmGastroesophageal [...] HyperlipidemiaacuteMay 2024 12:48pm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 with RVR acuteMay 2024 12:48pmPresence of Watchman left atrial appendage closure deviceacuteMay 2024 12:48pmPrimary hypertensionacuteMay 2024 12:48pm Chest painresolvedMay 2024 12:48pmUnstable anginaresolvedMay 2024 12:48pmASHD (arteriosclerotic heart disease)acuteMay 2024 4:09pmAtrial fibrillationacuteMay 2024 4:09pmGAD (generalized anxiety disorder)acuteMa2024 4:09pmHypercholesterolemiaacuteMay 2024 4:09pmHypothyroidacute May 2024 4:09pmOSA (obstructive sleep apnea)acuteMay 2024 4:09pm Primary hypertensionacuteMay 2024 4:09pm [facility] Work Phone: 1(234) 546-521403-24-2025 History of Present illness Narrative* Heladio Pineda [...] vomiting, night sweats, scalp tenderness, visual changes, owusu, bowel/bladder changes, weight changes or other complaints. [...] vomiting, night sweats, scalp tenderness, visual changes, owusu, bowel/bladder changes, weight changes or other complaints. [...] vomiting, night sweats, scalp tenderness, visual changes, owusu, bowel/bladder changes, weight changes or other complaints. [...] aggravating triggers January 05, 2023 SUBJECTIVE Mr. Kaminski is a 62 year old male who [...] vomiting, night sweats, scalp tenderness, visual changes, owusu, bowel/bladder changes, weight changes or other complaints. 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 Kaminski is a 63 year old Wmale with [...] touching your toes, sit-ups, using row machine [facility] pain recommendations per primary care provider/pain clinic [...] video & audio (virtual) or phone or vyrq-rm-szxs patient care, completing clinical documentation, obtaining and/orreviewing [...] the pleasure of seeing your patient, Esme Kaminski. I have enclosed a copy of my [...] Units Days Frequency Continuous Intervention/Comfort measure Comments CC CAMILA ADDITIONAL DEMO Question 06/25/2024 11:14 AM EDT - Filed by Patient Is this visit related to an accident, other than Workers' Compensation? No Is this visit related to Workers' Compensation? No Do you need an dog sitter? No documented in this encounterMagruder Hospital03-24-2025 NoteHNO ID: [id number] Author: HELADIO PINDEA MD Service: ? Author Type: Physician Type: [...] vomiting, night sweats, scalp tenderness, visual changes, owusu, bowel/bladder changes, weight changes or other complaints. [...] vomiting, night sweats, scalp tenderness, visual changes, owusu, bowel/bladder changes, weight changes or other complaints. [...] but happy with rheum (more content not included)...[facility]03-23-2025 Instructions* Patient Instructions* Heladio Pineda MD [...] touching your toes, sit-ups, using row machine machine long goods helper pain recommendations per primary care provider/pain clinic [...] Ab, Total Negative Negative documented in this encounterMagruder Hospital01-24-2025 Evaluation note* Diagnosis Onset Date Resolution Status Admit Date Acute bronchitis due to other specified organisms acuteJanuary 2024 2:00pmChest wall contusionacuteJan2024 2:00pm [facility] Work Phone: 1([phone]) 307-607512-25-2024 Miscellaneous Notes* Telephone Encounter - Bert Newman LPN - 04/02/2024 12:37 AM EST Con 06/04/23 Bmp, mag 06/12/23 documented in this encounterMag[facility]12-[facility]24 Telephone encounter Note* Telephone Encounter - Bert Newman LPN - 04/02/2024 12:37 AM EST Con 06/04/23 Bmp, mag 06/12/23 [facility]12-09-[facility] Evaluation note* Diagnosis Onset Date Resolution Status Admit Date Acute bronchitis due to other specified organisms acuteDecember 2023 3:02pmASHD (arteriosclerotic heart disease)acuteDecember 2023 3:02pmCoughacuteDecember 2023 3:02pmAcute bronchitis due to other specified organismsacuteApruary 2024 2:00pmChest wall contusionacute Jesusita 2024 2:00pm [facility] Work Phone: [phone] 160-733911-07-2024 History of Present illness Narrative* Antonio Steele MD - 02/14/2024 2:00 PM EST Subjective Esme Kaminski is a 63 y.o. male Chief Complaint [...] By signing my name below, Zo Boothe Serina PLASCENCIA , Scribe attest that this [...] exam, discussion and plan. documented [facility]Reg[facility] Work Phone: 1(362) 574-708411-07-2024 Instructions* Patient Instructions* Zo Castro LPN - [...] through Care Everywhere. * Heart Healthy Diet (Chinese) documented in this encounterReg[facility] Work Phone: 1(585) 348-492411-05-2024 Evaluation note* Diagnosis Onset Date Resolution Status Admit Date Primary osteoarthritis, right hand acuteNovember 2023 1:35pmBiceps tendonitis on rightacuteNovember 2023 9:37amRotator cuff syndrome of right shoulderacuteNovember 2023 9:37am Traumatic complete tear of left rotator cuffacuteNovember 2023 9:37am [facility] Work Phone: 1(317) 236-793511-05-2024 Evaluation note* Diagnosis Onset Date Resolution Status Admit Date Primary osteoarthritis, right hand acuteNovember 2023 1:35pmBiceps tendonitis on rightacuteNovember 2023 9:37amRotator cuff syndrome of right shoulderacuteNovember 2023 9:37am Traumatic complete tear of left rotator cuffacuteNovember 2023 9:37amAcute bronchitis due to other specified organismsacuteDecember 2023 3:02pmASHD (arteriosclerotic heart disease)acuteDecember 2023 3:02pmCoughacuteDecember 2023 3:02pmAcute bronchitis due to other specified organismsacuteJanuary 2024 2:00pm [facility] Work Phone: 1([phone]) 467-787710-22-2024 Hospital course Narrative* Bruno Almaguer MD - [...] Center 02/14/2024 2:00 PM Antonio Steele MD [id number] [place] 04/28/2024 8:40 AM Antonio Steele MD [id number] [place] 05/20/2024 10:[id number] 1 [id number] Shabnam Bruno Almaguer MD documented in this [facility] Work Phone: 1([phone]) 866-477910-22-2024 Note* Post-Procedure Note - Bruno Almaguer MD - 01/29/2024 12:08 PM EDT Physician Transition of Care Summary Invasive Cardiovascular Lab Procedure Date: 01/29/2024 Attending: * Bird Kowalski - Primary Resident/Fellow/Other Business Analysis Specialist: Surgeons and Role: * Bruno Almaguer MD - Fellow Indications: Pre-op Diagnosis * Atrial fibrillation, unspecified type (Multi) [I48.91] Post-procedure diagnosis: Post-op Diagnosis * Atrial fibrillation, unspecified type (Multi) [I48.91] Procedure(s): LAAO (Left Atrial Appendage Occlusion) 67221 - [place] PERQ CLSR TCAT L ATR APNDGE W/ENDOCARDIAL IMPLNT [place] PERQ CLSR TCAT L ATR APNDGE W/ENDOCARDIAL IMPLNT [80451] Description of the Procedure: S/p MARIO closure [...] Closure, 27mm Watchman Flx Pro Laac - [id number] - Implanted Inventory item: DEVICE, CLOSURE, 27MM WATCHMAN FLX PRO LAAC Model/Cat number: [id number] Car Hostler: [employer] Lot number: [id number] Device identifier: [id number] As of 01/29/2024 Status: Implanted Anticoagulation/Antiplatelet Plan: [...] by: Bruno Almaguer MD, 01/29/2024 1:45 PM [facility] Work Phone: 1([phone]) 867-756510-22-2024 Miscellaneous Notes* Post-Procedure Note - Bruno Almaguer MD - 01/29/2024 12:08 PM EDT Physician Transition of Care Summary Invasive Cardiovascular Lab Procedure Date: 01/29/2024 Attending: * Bird Kowalski - Primary Resident/Fellow/Other Business Analysis Specialist: Surgeons and Role: * Bruno Almaguer MD - Fellow Indications: Pre-op Diagnosis * Atrial fibrillation, unspecified type (Multi) [I48.91] Post-procedure diagnosis: Post-op Diagnosis * Atrial fibrillation, unspecified type (Multi) [I48.91] Procedure(s): LAAO (Left Atrial Appendage Occlusion) 63715 - [place] PERQ CLSR TCAT L ATR APNDGE W/ENDOCARDIAL IMPLNT [place] PERQ CLSR TCAT L ATR APNDGE W/ENDOCARDIAL IMPLNT [96114] Description of the Procedure: S/p MARIO closure [...] Closure, 27mm Watchman Flx Pro Laac - [id number] - Implanted Inventory item: DEVICE, CLOSURE, 27MM WATCHMAN FLX PRO LAAC Model/Cat number: [id number] Car Hostler: [employer] Lot number: [id number] Device identifier: [id number] As of 01/29/2024 Status: Implanted Anticoagulation/Antiplatelet Plan: [...] - 01/29/2024 10:27 AM EDT Patient: Esme Kaminski NPO guidelines met: Yes Physical Exam Airway Mallampati: III Cardiovascular Dental Pulmonary Plan ASA 3 Mild documented in this encounterReg[facility] Work Phone: [phone] 187-867410-22-2024 History of Present illness Narrative* Olivier Hopkins, RoseannD - 01/29/2024 10:30 AM EDT Pharmacy Medication History Review Esme Kaminski is a 63 y.o. male admitted for Atrial fibrillation (Multi). Pharmacy reviewed the patient's sicnm-la-dwutoylpl medications and allergies for accuracy. Medications ADDED: None Medications CHANGED: Medrol Medications REMOVED: None The list below reflects the updated COURT COLLECTIONS OFFICER list. Prior to Admission Medications Prescriptions Last [...] medrol Patient declines M2B at discharge. Sources: [facility] Pharmacy dispense history Patient interview Additional Comments: None Olivier Hopkins PharmD Transitions of Care Pharmacist 01/29/24 Secure Chat preferred If no response call [phone] or [employer] documented in this [facility] Work Phone: 1([phone]) 169-342010-22-2024 Note* Pre-Sedation Documentation - Bruno Almaguer MD - 01/29/2024 10:27 AM EDT Patient: Esme Kaminski NPO guidelines met: Yes Physical Exam Airway Mallampati: III Cardiovascular Dental Pulmonary Plan ASA 3 Mild [facility] Work Phone: [phone]) 717-481110-22-2024 History and physical note* Bruno Almaguer MD [...] care of this patient. Bruno Almaguer MD [facility] Work Phone: 1([phone] 937-235110-22-2024 History and physical note* Bruno Almaguer MD [...] patient. Bruno Almaguer MD documented in this [facility] Work Phone: [phone]) 224-646310-22-2024 Hospital Discharge instructions* Discharge Instructions* Sammi Loredo APRN-ENTRY LEVEL ELECTRICAL ENGINEER - 01/29/2024 9:41 AM EDT Watchman Discharge [...] you have any concerns, youmay contact the Records Analyst or if any of these symptoms become excessive, contact your water technician tonny to the emergency room. No tub [...] you have any questions or concerns - [phone] documented in this encounterRegency [facility] Work Phone: [phone]) 110-875209-23-2024 Procedure noteBrecksville [facility]09-[facility] History of Present illness Narrative* Bird [...] atrial fibrillation. 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 [...] care of this patient. Bird Kowalski MD Lead Android Developer, Interventional Cardiology Fellowship Program [facility] Office documented in this encounterReg[facility] Work Phone: 1([phone]) 979-596809-09-2024 Telephone encounter Note* Telephone Encounter - Korin Leyva - 2023 9:29 AM EDT Called patient LVM regards to completing labs as directed below [facility] Miscellaneous Notes* Telephone Encounter - Korin [...] - This Specialty 07/05/2023 PMR (polymyalgia rheumatica) ([facility]) Rheumatology Heladio Pineda MD 03/05/2023 PMR (polymyalgia rheumatica) ([facility]) Rheumatology Heladio Pineda MD 01/05/2023 PMR (polymyalgia rheumatica) ([facility]) Rheumatology Heladio Pineda MD Upcoming Rheumatology Appointments - Next 365 Days Visit Type Date Time Department [facility] 03/17/2024 9:00 AM [facility] CBC: None on file [...] and advise. Maryann Ramos documented in this encounterMagruder Hospital09-07-2024 Telephone encounter Note * Telephone Encounter [...] above. Please process accordingly. Heladio Pineda MD [facility]09-06-2024 Telephone encounter Note* Telephone Encounter - Melany Pearson MA - 12/14/2023 9:35 AM EDT Images from the original note were not included. Most recent Rheumatology visit: 07/05/2023 (with Heladio Pineda) Last Bone Density on file: 06/28/2023 Rheumatology Care Team: None on file Recent Office Visits - This Specialty 07/05/2023 PMR (polymyalgia rheumatica) ([facility]) Rheumatology Heladio Pineda MD 03/05/2023 PMR (polymyalgia rheumatica) ([facility]) Rheumatology Heladio Pineda MD 01/05/2023 PMR (polymyalgia rheumatica) ([facility]) Rheumatology Heladio Pineda MD Upcoming Rheumatology Appointments - Next 365 Days Visit Type Date Time Department [facility] 03/17/2024 9:00 AM [facility] CBC: None on file [...] 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 Maryann Ramos [facility]07-11-2024 History of Present illness Narrative* Antonio Steele MD - 10/18/2023 2:40 PM EDT Subjective Esme Kaminski is a 62 y.o. male Chief Complaint [...] Attestation By signing my name below, IPearl LPN, Scribe attest that this documentation has [...] exam, discussion and plan. documented in this encounterReg[facility] Work Phone: 1(612) 247-906607-11-2024 Instructions* Patient Instructions* Pearl Bae LPN - [...] Provided instructions on exercise documented in this encounterReg[facility] Work Phone: 1(615) 158-760406-03-2024 Telephone encounter Note* Telephone Encounter - Lana Hartman MA - 09/10/2023 9:26 AM EDT Pt aware. Patient asked regarding Medrol. He says he is to take until completed. I stated yes. He wants to know if he should continue his other medications. I let him know Dr. Pineda didn't stated anything about any changes to his medication. Lana Hartman MA [facility]06-03[facility]24 Miscellaneous Notes* Telephone Encounter - Lana [...] normal esr 9, crp<0.3; documented in this encounterMagruder Hospital06-02-2024 Telephone encounter Note * Telephone Encounter [...] chronic Afib. 03/05/23 normal esr 9, crp<0.3; [facility] Telephone encounter Note* Telephone Encounter - Melany Pearson MA - 09/05/2023 2:40 PM EDT Spoke to pt aware of med sent. [facility] Miscellaneous Notes* Telephone Encounter - Melany [...] - This Specialty 07/05/2023 PMR (polymyalgia rheumatica) ([facility]) Rheumatology Healdio Pineda MD 03/05/2023 PMR (polymyalgia rheumatica) ([facility]) Rheumatology Heladio Pineda MD 01/05/2023 PMR (polymyalgia rheumatica) ([facility]) Rheumatology Heladio Pineda MD Upcoming Rheumatology Appointments - Next 365 Days Visit Type Date Time Department [facility] 03/17/2024 9:00 AM [facility] CBC: Latest Ref Rng [...] diagnoses: Vitamin D deficiency documented in this encounterMagruder Hospital05-29-2024 Telephone encounter Note * Telephone Encounter [...] above. Please process accordingly. Heladio Pineda MD [facility]-29-[facility]24 Telephone encounter Note* Telephone Encounter - Melany Pearson MA - 09/05/2023 10:21 AM EDT Spoke to pt he states he has been having muscle pain lately and will like to take the medrol dose pack for his pain. [facility]-29[facility] Telephone encounter Note* Telephone Encounter - Heladio Pineda MD - 09/05/2023 9:12 AM EDT Please call patient Inquire if patient still taking medrol Is he have any pain symptoms, PMR symptoms? Per last note patient was off medrol Thank you. [facility]-29[facility] Telephone encounter Note* Telephone Encounter - Melany Pearson MA - 09/05/2023 7:58 AM EDT Images from the original note were not included. Most recent Rheumatology visit: 07/05/2023 (with Heladio Pineda) Rheumatology Care Team: None on file Recent Office Visits - This Specialty 07/05/2023 PMR (polymyalgia rheumatica) ([facility]) Rheumatology Heladio Pineda MD 03/05/2023 PMR (polymyalgia rheumatica) ([facility]) Rheumatology Heladio Pineda MD 01/05/2023 PMR (polymyalgia rheumatica) ([facility]) Rheumatology Heladio Pineda MD Upcoming Rheumatology Appointments - Next 365 Days Visit Type Date Time Department [facility] 03/17/2024 9:00 AM [facility] CBC: Latest Ref Rng [...] protein (CRP) C-REACTIVE PROTEIN (CRP) [SQCRP] 08/08/23 07/08/2407/08/24 Auth. provider: Heladio Pineda MD Assoc. diagnoses: Elevated sed rate, Elevated C-reactive protein (CRP) VITAMIN D 25 HYDROXY [SQVITD] 10/08/23 07/08/24 07/09/23 Auth. provider: Heladio Pineda MD Assoc. diagnoses: Vitamin D deficiency [facility]-24[facility]24 Progress note Author Sally Alex [facility] August 31, 2023 3:45pmNote Date/TimeMay 2023 10:54amJay[place] [address] Hospitalist Progress Note Signed with Addenda Patient: Esme Kaminski MR#: [id number] : 1960 Acct:[id number] Age/Sex: 62 / M Adm Date: 4 Loc: Room: [address] [place] [address] Type: ADM IN Attending Dr: Sally Alex [...] of Service: 08/31/2023 Subjective Subjective Narrative: Mr. Kaminski is resting comfortably in bed this morning [...] F 77 20 130/76 95 Room Air 05/24/24 08:50 08/31/23 08:50 08/31/23 08:50 08/31/23 08:50 [...] Dose Route Start Last Admin Trade Name Sadaq PRN Reason Stop Dose Admin Acetaminophen 650 [...] 4 Mg Tablet PO 08/31/24 08:59 Q48HR [facility] Metoprolol Succinate 50 mg 08/31/23 09:00 08/31/23 [...] signed by DO RADHA Zavala> 08/31/23 1054 [facility] Work Phone: 1(279) 768-648905-24-2024 History and physical note Author Elliott Talley [facility] August 30, 2023 11:34pmNote Date/TimeMay 2023 11:04pmJay, [place] [address] Hospitalist H&P Signed Patient: Esme Kaminski MR#: [id number] : 1960 Acct:[id number] Age/Sex: 62 / M Adm Date: 4 Loc: Room: [address] [place] [address] Type: ADM IN Attending Dr: Elliott Talley MD Copies to: DO Elliott Hannah MD~ HPI DATE OF EXAMINATION: 08/30/23 CHIEF COMPLAINT: Dizziness, abdominal pain HISTORY OF PRESENT ILLNESS: Mr. Kaminski is a 62-year-old male with PMH of [...] that which is noted above in HPI [facility] Medical History (Updated 08/30/23 @ 23:33 [...] mg tablet,delayed release 81 mg PO DAILY FL prevention 01/29/17 [History Confirmed 08/30/23] atorvastatin 80 [...] % (Auto) 4.4 % (.) 08/30/23 18:20 Johnson % (Auto) 2.3 % (.) 08/30/23 18:20 Eos % (Auto) 0.1 % (.) 08/30/23 18:20 Baso % (Auto) 0.8 % (.) 08/30/23 18:20 Nucleat RBC Rel Count 0.0 /100 WBC (0-0.5) 08/30/23 18:20 Neut # (Auto) 13.4 x10E3/uL (1.8-7.7) H 08/30/23 18:20 Lymph # (Auto) 0.6 x10E3/uL (1.00-4.8) L 08/30/23 18:20 Johnson # (Auto) 0.3 x10E3/uL (0.0-0.8) 08/30/23 18:20 [...] pH 5.5 (5.0-9.0) 08/30/23 18:45 Ur Specific [place] 1.016 (1.001-1.030) 08/30/23 18:45 Urine Protein Negative mg/dL (Negative) 05/23/24 18:45 Urine Glucose (UA) Normal mg/dL (Normal) [...] pink Documented By: Elliott Talley MD [id number] Signed By: <Electronically signed by Elliott Talley MD> 08/30/23 2333 [facility] Work Phone: 1(244) 554-106205-09-2024 History of Present illness Narrative* Ky Navarro [...] m (5' 10.5 ) documented in this [facility] Work Phone: 1(227) 943-806104-25-2024 [facility] History of Present illness Narrative* Antonio Steele MD - 07/27/2023 11:00 AM EDT Cardiology Consultation- New Consult Reason for referral: Afib, establish care, previous [facility] patient HPI: Esme Kaminski is a 62 y.o. 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 BMI 35.0-35.9,adult Scribe Attestation By signing my name below, I, Zo AntunezAshly Jimenez LPN attest that this documentation has been [...] exam, discussion and plan. documented in this encounterReg[facility] Work Phone: 1(937) 242-633004-19-2024 Instructions* Patient Instructions* Zo Castro LPN - [...] Provided instructions on exercise. documented in this encounterRegency Hospital [facility] Work Phone: 1(146) 143-325004-01-2024 Miscellaneous Notes* Telephone Encounter - Polly Magana [...] accordingly. Heladio Pineda MD documented in this encounterMagruder Hospital03-25-2024 Miscellaneous Notes* Telephone Encounter - Korin [...] normal esr 9, crp<0.3; documented in this encounterMagruder Hospital03-07-2024 Miscellaneous Notes* Telephone Encounter - Kamille Rosario RN - 06/14/2023 9:28 AM EST Pt calling in; states he is to have procedure with [facility] today but is experiencing fevers, vomiting, diarrhea. EP senior power scheduler notified to call pt to cancel and reschedule. * Telephone Encounter - Georgia Harvey LPN - 06/14/2023 9:28 AM EST Called and spoke with pt, pt confirmed N/V/D and fever. Advised pt to call when symptoms resolve and will reschedule Pt stated he did miss Eliquis dose last night and no meds currently d/t vomiting. Will notify JBP documented in this encounterMagruder Memorial Hospital03-07-2024 Telephone encounter Note* Telephone Encounter - Kamille Rosario RN - 06/14/2023 9:28 AM EST Pt calling in; states he is to have procedure with JBP today but is experiencing fevers, vomiting, diarrhea. EP senior power scheduler notified to call pt to cancel and reschedule. [facility]03-07-[facility] Telephone encounter Note* Telephone Encounter - Georgia Harvey LPN - 06/14/2023 9:28 AM EST Called and spoke with pt, pt confirmed N/V/D and fever. Advised pt to call when symptoms resolve and will reschedule Pt stated he did miss Eliquis dose last night and no meds currently d/t vomiting. Will notify JBP [facility]03-05-2024 Miscellaneous Notes* Telephone Encounter - Bharti Milian RN - 06/12/2023 5:10 PM EST Called patient with JBP's response to start Magnesium Oxide 400 twice a day by mouth. Patient agreeable and wants RX sent to [facility]. Rx sent to sign. Has some at home and will start tonight. tkm ----- Message from Chhaya Whatley MD sent at 06/12/2023 4:40 PM EST ----- Please have patient start taking magnesium oxide 400 mg twice a day. Thank you Dirk documented in this encounterMagruder Memorial Hospital03-05-2024 Telephone encounter Note* Telephone Encounter - Bharti Milian RN - 06/12/2023 5:10 PM EST Called patient with JBP's response to start Magnesium Oxide 400 twice a day by mouth. Patient agreeable and wants RX sent to [facility]. Rx sent to sign. Has some at home and will start tonight. tkm ----- Message from Chhaya Whatley MD sent at 06/12/2023 4:40 PM EST ----- Please have patient start taking magnesium oxide 400 mg twice a day. Thank you Dirk [facility]03-04-2024 Miscellaneous Notes* Telephone Encounter - Ambar TEMO Figueroa - 06/11/2023 3:23 PM EST Images from the original note were not included. [facility] Cardiology: Cardioversion or DFT Testing Procedure: Cardioversion Physician: Dr. Dirk Whatley Date/Time of Procedure: 06/13 @ 1 pm Arrival Time: 12 pm Hospital: [facility] - Address: [address] [place] [address] Registration Location: [place] at Entrance C, parking lot P3 PRE OP REQUIREMENTS Below MUST be completed prior to your procedure or it may result in delay or cancellation [] Pre op testing: NONE [x] Pre op labs: Draw pre op labs any time between and at any [facility] Lab, no paper orders are required, [...] 7am Other Instructions: [x] Must have a seasonal driver as you will be unable to drive following the procedure IMPORTANT INFORMATION Notify the Surgery office of any illness, infection or COVID symptoms or a COVID positive resultimmediately at [phone] If you take a blood thinner, unless [...] the hospital [facility] currently allows up to two visitors at [...] EP Surgery nurses. The [facility] [place] instructions can be incorrect and provide the wrong information about your procedure. If you have any questions or concerns about preparing for your procedure, please call the EP Surgery office at [phone] For additional questions and to schedule any follow up appointments please call the main [facility] Cardiology office at [phone] documented in this encounterMagruder [facility] Hospital03-04-2024 Telephone encounter Note* Telephone Encounter - Ambar Figueroa LPN - 06/11/2023 3:23 PM EST Images from the original note were not included. [facility] Cardiology: Cardioversion or DFT Testing Procedure: Cardioversion Physician: Dr. Dirk Whatley Date/Time of Procedure: 06/13 @ 1 pm Arrival Time: 12 pm Hospital: [facility] - Address: [address] [place] [address] Registration Location: [facility] at Entrance C, parking lot P3 PRE OP REQUIREMENTS Below MUST be completed prior to your procedure or it may result in delay or cancellation [] Pre op testing: NONE [x] Pre op labs: Draw pre op labs any time between and Thursday at any [facility] Lab, no paper orders are required, [...] 7am Other Instructions: [x] Must have a seasonal driver as you will be unable to drive following the procedure IMPORTANT INFORMATION Notify the EP Surgery office of any illness, infection or COVID symptoms or a COVID positive resultimmediately at [phone] If you take a blood thinner, unless [...] the hospital [facility] currently allows up to two visitors at [...] EP Surgery nurses. [facility] [place] instructions can be incorrect and provide the wrong information about your procedure. If you have any questions or concerns about preparing for your procedure, please call the EP Surgery office at [phone] For additional questions and to schedule any follow up appointments please call the main [facility] Cardiology office at [phone] [facility] WITOI [id number] Miscellaneous Notes* Telephone Encounter - Ambar Figueroa [...] not hold any medication, pamela done at [facility] by nd. Diagnosis persistent atrial fibrillation. History: Patient with [...] AFib. Thank you Dirk documented in this encounterMag[facility] Hospital02-26-2024 Telephone encounter Note* Telephone Encounter - Ambar Figueroa LPN - 06/04/2023 3:05 PM EST ISAÍAS HEREDIA is requesting a CDVN for this pt, please review and advise thank you. [facility]02-26-2024 Telephone encounter Note* Telephone Encounter [...] not hold any medication, pamela done at [facility] by me. Diagnosis persistent atrial fibrillation. History: [...] in management of AFib. Thank you Dirk [facility] Work Phone: [phone] 315-821302-26-2024 History of Present illness Narrative* Sarai Booth MD - 06/04/2023 2:15 PM EST Esem Lopezowan Date of visit: 06/04/2023 Date of : 1960 Age: 62 y.o. 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 Hypertension Nonrheumatic mitral (valve) insufficiency Hyperlipidemia Other transient cerebral ischemic attacks and related syndromes Obstructive sleep apnea Dizziness Severe obesity (BMI 35.0-39.9) with comorbidity ([facility]) Coronary artery disease involving coushatta coronary artery of cous[place]ta heart without angina pectoris Atrial fibrillation Allergies [...] Complaint Patient presents with Follow-up 6M and [facility] 04/18/2023 Coronary Artery Disease Hypertension Atrial [...] graft with angina pectoris (CMS-HCC) Heart failure ([facility]) Hyperlipidemia Hypertension Meniere disease Myocardial infarction (CMS-HCC) Nonrheumatic mitral (valve) insufficiency Obstructive sleep apnea Other transient cerebral ischemic attacks and related syndromes No data recorded No data recorded No data recorded Past Surgical History: Procedure Laterality Date APPENDECTOMY BACK SURGERY Coronary angiogram + graft/coushatta N/A 02/03/2020 Performed by John Talavera MD at [facility] CARDIAC CATH LABS CORONARY ARTERY BYPASS [...] completed IMPRESSIONS/PLAN 1. Coronary artery disease involving coushatta coronary artery of cous[place]ta heart without angina pectoris - POCT EKG - Basic Metabolic Panel; Future - CBC auto differential; Future 2. Persistent atrial fibrillation ([facility]) - POCT EKG - Cardioversion external; Future [...] BROWER DO Referring Physician: Vitaliy Brower DO [facility] [place] [address] documented in this encounterMagruder [facility] Hospital02-26-2024 Instructions* Patient Instructions* Zhane Ceja RN - 06/04/2023 2:15 PM EST Pt needs scheduled for cardioversion at [facility] next week. He has been on eliquis without missing any doses. Thx slm documented in this encounterMagruder [facility] Hospital02-23-2024 Miscellaneous Notes* Telephone Encounter - Melinda Gomes CMA - 06/01/2023 3:32 PM EST Called patient to remind them to bring their most current copy of their medication list with them to their appt. Patient verbalizes understanding. documented in this encounterSouthern Ohio Medical CenterSqurl [id number] Telephone encounter Note* Telephone Encounter - Melinda Gomes CMA - 06/01/2023 3:32 PM EST Called patient to remind them to bring their most current copy of their medication list with them to their appt. Patient verbalizes understanding. [facility] CenterLean[facility]02-12-[facility] Evaluation note* Encounter Date Diagnosis Assessment Notes Treatment Notes Treatment Clinical Notes May, Acute pain of left knee (ICD-10 - M25.562) [facility] Other 02-12-2024 Evaluation note* Encounter Date Diagnosis [...] in the office today and providing supervision. 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 We talked about being more aggressive and going to surgery to close this wound but the patient was recently diagnosed with atrial fibrillation. In my discussions with anesthesiology this would need to be worked up and evaluated by the water technician before considering a surgery unless it was an emergency. At this point I do not feel it is actively infected so I do not feel it is a emergent surgery. He does see [facility] in [place] on 06/04/2023. Our plan at this time is to continue with the wound VAC with home health nursing who will come backon Sunday to put the wound VAC back on. I will then plan to see him in about 3 weeks which would yobany day or 2 after he has seen his water technician. At that point in time we will make a decision on thewound. If it is continuing to heal up and closed with the assistance of the wound VAC that is fantastic but if it still needs help then we will be aggressive at that time as long as his water technician allows. Discussed post-op dental prophylaxis. Shared decision made to continue prophylactic antibiotics indefinitely. [facility] Other 01-29-2024 Evaluation note* Encounter Date Diagnosis [...] sometime in November to further discuss surgery. [facility] Other 01-24-2024 Evaluation note* Encounter Date Diagnosis [...] are maintaining regular scheduled appts with their water technician. He understands that he must have surgery postponed for 4 wks for the new onset AFib. and postpone for 4-7 wks for COVID infection. Apr,Hypomagnesemia (ICD-10 - E83.42)Replace Magnesium w/ supplements Decrease Alcohol use. Recheck prior to any restortation of sinus rhythm [facility] Other 01-10-2024 NoteXR CHEST 1 VW Procedure: Chest x-ray performed Number of views:AP portable erect History:Palpitations, A. fib Comparison:07/18/2014 Findings: The heart and lungs show no acute findings, and the mediastinum and yue are grossly negative . There is a median sternotomy Impression: No acute change. Finalized by Sandra Barba DO on 04/18/2023 1:14 [facility] 04-18-2023 Miscellaneous Notes* Telephone Encounter - [...] left and told him to call his water technician. Pt not dyspneic. Does have some dizzy symptoms. Pt not on any blood thinners. Instructed to go to ER for evaluation documented in this encounterUniversity Of Vermont Medical CenterHubPages01-10-2024 Telephone encounter Note* Telephone Encounter - Florence [...] left and told him to call his water technician. Pt not dyspneic. Does have some dizzy symptoms. Pt not on any blood thinners. Instructed to go to ER for evaluation [facility] [place] [id number] Evaluation note* Encounter Date Diagnosis Assessment Notes [...] or dyspnea, instructed to go to ER [facility] Other 01-03-2024 Evaluation note* Encounter Date Diagnosis [...] will call us to get in sooner. 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 Continue taking ipcn-xzx-hzynzqs anti-inflammatories as needed for assistance with swelling and pain associated with the operative extremity. [facility] Other 12-07-2023 Evaluation note* Encounter Date Diagnosis [...] of this patient was performed by Melinda [facility] [employer], SALES OFFICE ADMINISTRATOR and patient will continue with the treatment plan per Dr Mendez, who initiated this treatment plan. Dr. Montesinos is present in the office today and providing supervision. [facility] Other 12-07-2023 Evaluation note* Encounter Date Diagnosis [...] answered to the best of my ability. [facility] Other 12-04-2023 Evaluation note* Encounter Date Diagnosis Assessment Notes Treatment Notes Treatment Clinical Notes Mar, Primary osteoarthritis of right hip (ICD-10 - M16.11) [facility] Other 11-29-2023 Miscellaneous Notes* Telephone Encounter - [...] My Chart if tests completed at F: normal labs and no inflammation. Continue same [...] normal esr 9, crp<0.3; documented in this encounterMagruder Hospital11-29-2023 Evaluation note* Encounter Date Diagnosis Assessment [...] follow-up appointments based on that incision check. [facility] Other 11-27-2023 History of Present illness Narrative* [...] nausea, vomiting, night sweats, scalp tenderness, visualchanges, owusu, bowel/bladder changes, weight changes or other complaints. [...] aggravating triggers January 05, 2023 SUBJECTIVE Mr. Kaminski is a 62 year old male who [...] vomiting, night sweats, scalp tenderness, visual changes, owusu, bowel/bladder changes, weight changes or other complaints. 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 I have enclosed a copy of my [...] cc Vitaliy Brower DO documented in this encounterMagruder Hospital11-26-2023 Instructions* Patient Instructions* Heladio Pineda MD [...] touching your toes, sit-ups, using row machine [facility] pain recommendations per primary care provider/pain clinic [...] Ab, Total Negative Negative documented in this encounterMagruder Hospital11-25-2023 Miscellaneous Notes* Telephone Encounter - Heladio [...] - This Specialty 01/05/2023 PMR (polymyalgia rheumatica) ([facility]) Rheumatology Heladio Pineda MD 11/17/2013 Wrist arthritis [facility]ley 10/29/2013 Pseudogout Rheumatology Tracy Conley Upcoming Rheumatology Appointments - Next 365 Days Visit Type Date Time Department [facility] [facility] 03/05/2023 2:00 PM [facility] CBC: CBC Latest Ref [...] diagnoses: Vitamin B12 deficiency documented [facility] Evaluation note* Encounter Date Diagnosis Assessment [...] total left hip arthroplasty (ICD-10 - Z96.642) [employer] Other 10-27-2023 Evaluation note* Encounter Date Diagnosis [...] could proceed with surgery safely. The manager social media was vital for surgery timing and scheduling [...] plans. Prolonged services time spent: 34 minutes [facility] Other 10-25-2023 Evaluation note* Encounter Date Diagnosis Assessment Notes Treatment Notes Treatment Clinical Notes Jan, Primary osteoarthritis of right hip (ICD-10 - M16.11) Jan,Other1. Right PETER Home Medications - DVT prophylaxis: Aspirin - NSAID: Home prednisone - Disposition: Same-day discharge Joints Meeting Checklist - Pharmacy: [facility] to bed - Approach/Technique: anterior, Cowgill bed - Implants: Avenir Complete/G7; - Anesthesia: general vs spinal - Blocks: Fascia iliaca - Preop Antibiotics: Ancef and Vanco - TXA: yes-systemic - Positioning/OR Bed: supine on Cowgill bed - Intraop X-ray: yes - Otoole: [...] above surgery. OARRS report generated and reviewed. [facility] Other 10-18-2023 Evaluation note* Encounter Date Diagnosis [...] w/ plan to start MTX after surgery [facility] Other 10-05-2023 Miscellaneous Notes* Telephone Encounter - Melany Pearson MA - 01/11/2023 8:43 AM EDT Spoke to pt aware of results and recommendations. * Telephone Encounter - Heladio Pineda MD - 01/10/2023 5:14 PM EDT Please Call patient if MyChart note not read to review results/released to My Chart if tests completed at [facility]: Mildly Low vitamin D maybe associated with fatigue/joint/muscle pain. Start vitamin D 4000 International Units daily with food. Mildly Low vitamin b12- maybe associated with fatigue, may start over the counter vitamin [id number] daily by mouth or notify office if [...] hepatitis panel, quantiferon tb; documented in this encounterMag[facility] Hospital09-29-[facility]23 Instructions* Patient Instructions* Heladio Pineda MD [...] touching your toes, sit-ups, using row machine [facility] pain recommendations per primary care provider/pain clinic [...] your usual activities immediately. documented in this encounterMag[facility] Hospital09-29-[facility]23 History of Present illness Narrative* Heladio Pineda MD - 01/05/2023 11:31 AM EDT NEW CONSULT:RHEUMATOLOGY SERVICE SERVICE DATE: 01/05/2023 SERVICE TIME: 11:31 AM REASON FOR CONSULT: joint pain 2nd opinion REQUESTING PHYSICIAN: Dr.Benjamin Inocente DO PRIMARY CARE PHYSICIAN: Vitaliy Brower DO Patient's Name: Esme Kaminski [address] [place] [id number] Accompanied by: self This consult was requested for my medical opinion regarding the rheumatologic evaluation of the patient's joint pain problems, and my final recommendations will be communicated to the requesting health care provider by way of the shared medical record for internal providers or letter via the [facility] Postal Service for external providers. January 05, 2023 SUBJECTIVE Mr. Kaminski is a 62 year old male who [...] vomiting, night sweats, scalp tenderness, visual changes, owusu, bowel/bladder changes, weight changes or other complaints. 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 Kaminski is a 62 year old Wmale with PMH FER/waiting CPAP, BPH, CAD, thyroid disease, 1st great toe/start alloupurinol ~2007, left index finger tailgate zora 1979, Afib temporarily,S/p b/l TKR ~2012 [...] touching your toes, sit-ups, using row machine [facility] pain recommendations per primary care provider/pain clinic [...] video & audio (virtual) or phone or [id number] patient care, completing clinical documentation, obtaining and/or [...] the pleasure of seeing your patient, Esme Kaminski. I have enclosed a copy of my [...] SIGNATURE: Heladio Pineda MD PATIENT NAME: Esme Kaminski DATE: January 05, 2023 documented in this encounterMagruder Hospital09-26-2023 Evaluation note* Encounter Date Diagnosis Assessment Notes Treatment Notes Treatment Clinical Notes Dec, Preop exam for internal medicine (ICD-10 - Z01.818) Mr. Kaminski has been seen and examined. I have reviewed his medications and recommend he hold his Spironolactone/HCTZ the day of surgery. Dec,SHD (arteriosclerotic heart disease) (ICD-10 - I25.10)Stable without activity limiting symptoms. Normal stress testing in July 2021. He is capable of performing tasks > 4METs with ease. I will defer the decision to hold Mr. Kaminski's ASA to his water technician, but guidelines favor continuing without interruption, if possible in patients with a history of PCI/stent placement. Dec,Elevated cholesterol (ICD-10 - E78.00)Stable, continue medication without interruption. Dec,rimary hypertension (ICD-10 - I10)Stable, continue medication without interruption. Dec,astroesophageal reflux disease with esophagitis without hemorrhage (ICD-10 - K21.00)Stable, continue treatment without interruption Dec,utoimmune thyroiditis (ICD-10 - E06.3)Clinically euthyroid, continue treatment without interruption [facility] Other 09-19-2023 Evaluation note* Encounter Date Diagnosis Assessment Notes Treatment Notes Treatment Clinical Notes Dec, Internal derangement of left peggy ulder (ICD-10 - M24.812) Dec,Traumatic incomplete tear of left rotator cuff, initial encounter (ICD-10 - S46.012A)A 1/1cc marcaine / kenalog cortisone injection was performed into the subacromial space under sterile technique. Patient tolerated the injection well with no adverse reaction. Dec,ontusion of left shoulder, initial encounter (ICD-10 - S40.012A) Dec,Multiple joint pain (ICD-10 - M25.50) [facility] Other 08-17-2023 Evaluation note* Encounter Date Diagnosis Assessment Notes Treatment Notes Treatment Clinical Notes Nov, Pseudogout (ICD-10 - M11.20) [facility] Other 08-16-2023 Evaluation note* Encounter Date Diagnosis Assessment Notes Treatment Notes Treatment Clinical Notes Nov, Primary osteoarthritis of right hip (ICD-10 - M16.11) [facility] Other 08-15-2023 Evaluation note* Encounter Date Diagnosis [...] refer to Heladio Pineda for rheumatology consult [facility] Other 08-07-2023 Evaluation note* Encounter Date Diagnosis [...] antigen) (ICD-10 - Z12.5)Yearly MELBA and PSA [facility] Other 07-19-2023 Evaluation note* Encounter Date Diagnosis Assessment Notes Treatment Notes Treatment Clinical Notes Oct, Superficial ulcer of lower extre mity (ICD-10 - L97.909) Cleanse w/ soap and water. Elevate as much as possible. No improvement, refer to wound clinic Oct,ellulitis of left lower extremity (ICD-10 - L03.116)Keep clean, elevate and use Mupirocin bid. Begin antibiotics. [facility] Other 06-27-2023 Evaluation note* Encounter Date Diagnosis [...] palpitations or lightheadedness He completed evaluation w/ Wig Sales Consultant w/o changes Instructed to avoid use of Nitroglycerine w/ Sildenafil. Instructed to avoid use if develop CP, palpitations or lightheadedness [facility] Other 06-21-2023 Evaluation note* Encounter Date Diagnosis Assessment Notes Treatment Notes Treatment Clinical Notes Sep, FER (obstructive sleep apnea) (ICD-10 - G 47.33) AHI 25, Psat 80% [facility] Other 06-21-2023 Evaluation note* Encounter Date Diagnosis Assessment Notes Treatment Notes Treatment Clinical Notes Sep, FER (obstructive sleep apnea) (ICD-10 - G 47.33) AHI 35 [facility] Other 05-03-2023 Evaluation note* Encounter Date Diagnosis [...] recurrent major depressive disorder (ICD-10 - F33.0) [facility] Other 05-01-2023 Evaluation note* Encounter Date Diagnosis [...] August,OtherAbove note written by Kevyn Corona MA, Java J[employer] Architect. Edited and approved by Dr. Jonathan Samano MD. [facility] Other 04-25-2023 Evaluation note* Encounter Date Diagnosis Assessment Notes Treatment Notes Treatment Clinical Notes Jul, Myalgia (ICD-10 - M79.10) [facility] Other 04-24-2023 Evaluation note* Encounter Date Diagnosis Assessment Notes Treatment Notes Treatment Clinical Notes Jul, Right shoulder pain (ICD-10 - M2 5.511) [facility] Other 04-21-2023 Evaluation note* Encounter Date Diagnosis [...] of yearly testing Sent order to complete [facility] Other 03-28-2023 Evaluation note* Encounter Date Diagnosis [...] left shoulder, initial encounter (ICD-10 - S40.012A) [facility] Other 02-27-2023 Evaluation note* Encounter Date Diagnosis [...] May,OtherAbove note written by Jeff Nieto LPN, Java J2Ee Architect. Edited and approved by Dr. Jonathan Samano MD. [facility] Other 02-27-2023 Evaluation note* Encounter Date Diagnosis Assessment Notes Treatment Notes Treatment Clinical Notes May, Internal derangement of left pgegy ulder (ICD-10 - M24.812) May,ontusion of left [...] the injection well with no adverse reaction. [facility] Other 02-20-2023 Evaluation note* Encounter Date Diagnosis [...] instructedto continue exercise and AHA diet plan. [facility] Other 02-14-2023 Evaluation note* Encounter Date Diagnosis Assessment Notes Treatment Notes Treatment Clinical Notes May, Tongue ulceration (ICD-10 - K14. 0) Magic Mouth Wash qid. Refer to ENT May,Hoarseness of voice (ICD-10 - R49.0)Refer to ENT May,Odynophagia (ICD-10 - R13.10)Refer to ENT [facility] Other 01-04-2023 Evaluation note* Encounter Date Diagnosis [...] Apr,OtherAbove note written by Jeff Nieto LPN, Java J2Ee Architect. Edited and approved by Dr. Jonathan Samano MD. [facility] Other 11-30-2022 Evaluation note* Encounter Date Diagnosis [...] Feb,therAbove note written by Jeff Nieto LPN, Java J2Ee Architect. Edited and approved by Dr. Jonathan Samano MD. [facility] Other 11-09-2022 Evaluation note* Encounter Date Diagnosis [...] and tingle for hours after this injection. [facility] Other 11-07-2022 Evaluation note* Encounter Date Diagnosis [...] Feb,therAbove note written by Jeff Nieto LPN, Java J2Ee Architect. Edited and approved by Dr. Jonathan Samano MD. [facility] Other 06-22-2022 Evaluation note* Encounter Date Diagnosis Assessment Notes Treatment Notes Treatment Clinical Notes Sep, Primary osteoarthritis of right hip (ICD-10 - M16.11) Sep,rimary osteoarthritis of left hip (ICD-10 - M16.12) Sep,/P total left hip arthroplasty (ICD-10 - Z96.642) [facility] Doing well. [...] to call with any questions or concerns. [facility] Other 06-06-2022 Evaluation note* Encounter Date Diagnosis Assessment Notes Treatment Notes Treatment Clinical Notes Sep, Right hand pain (ICD-10 - M79.64 1) Sep,rthritis of right hand (ICD-10 - M19.041)Right long finger MCP joint injected with cortisone under sterile technique, patient tolerated well. Will discuss surgical options with Dr Nichole [facility] Other 05-11-2022 Evaluation note* Encounter Date Diagnosis Assessment Notes Treatment Notes Treatment Clinical Notes August, Primary osteoarthritis of right hip (ICD-10 - M16.11) 11 August,rimary osteoarthritis of left hip (ICD-10 - M16.12) August,/P total left hip arthroplasty (ICD-10 - Z96.642) August,[facility]20[facility] Doing well Patient may continue increasing activities as tolerated. Continue taking deqe-rtm-wqfaaaf anti-inflammatories as needed for assistance with swelling and pain associated with the operative extremity. Follow-up in 6 weeks for repeat examination and repeat x-rays. [facility] Other 04-13-2022 Evaluation note* Encounter Date Diagnosis Assessment Notes Treatment Notes Treatment Clinical Notes Jul, Primary osteoarthritis of right hip (ICD-10 - M16.11) 13 Jul,rimary osteoarthritis of left hip (ICD-10 - M16.12) 13 Jul, [facility] Doing well. [...] off narcotic pain medication. They can take qiqj-pbq-widrludswcu-inflammatories as needed for assistance with swelling and [...] shoe for his standing weightbearing pelvis x-ray. [facility] Other 03-18-2022 Evaluation note* Encounter Date Diagnosis [...] could proceed with surgery safely. The manager social media was vital for surgery timing and scheduling [...] echo and a heart cath by his water technician. Hewas then cleared from a cardiology standpoint. Any recommendations made by these care providers were taken into consideration for the patient's perioperative and postoperative treatment plans. Prolonged services time spent: 33 minutes [facility] Other 03-11-2022 Evaluation note* Encounter Date Diagnosis [...] postoperative period Joints Meeting Checklist - Pharmacy: [facility] bed - Approach/Technique: anterior, Cowgill bed - Implants: Avenir Complete/G7; - Anesthesia: general - Blocks: Fascia iliaca - Preop Antibiotics: Ancef - TXA: yes-systemic - Positioning/OR Bed: supine on Cowgill bed - Intraop X-ray: yes - Otoole: [...] elected to proceed with the above surgery. [facility] Other 11-16-2021 Evaluation note* Encounter Date Diagnosis [...] Feb,OtherAbove note written by Erica Valenzuela CMA, Java J2Ee Architect. Edited and approved by Dr. Jonathan Samano MD. [employer] Other 09-29-2021 Evaluation note* Encounter Date Diagnosis Assessment Notes Treatment Notes Treatment Clinical Notes Dec, Other spondylosis wi th radiculopathy, lumbar region (ICD-10 - M47.26) We may consider treatment of the lumbar spine should he not benefit from the upcoming hip injection. Anatomy of spine discussed in detail with patient in regards to patients condition. Dec, eft hip pain (ICD-10 - M25.552) Patient notes [...] in agreement with our treatment plan. Dec, umbar degenerative disc disease (ICD-10 - M51.36) Dec,ight hip pain (ICD-10 - M25.551) Dec,Other chronic pain (ICD-10 - G89.29) Dec,OtherAbove note written by Erica Valenzuela CMA, Java J2Ee Architect. Edited and approved by Dr. Jonathan Samano MD. 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 Encounter for long-term (current) use of steroids CHENCHO positive Other and unspecified nonspecific immunological findings Bilateral hand swelling documented in this encounter [facility]* Diagnosis PMR (polymyalgia rheumatica) (HCC)- Primary Polymyalgia rheumatica Elevated sed rate Elevated sedimentation rate Elevated C-reactive protein (CRP) Vitamin D deficiency Unspecified vitamin D deficiency Vitamin B12 deficiency Other B-complex deficiencies documented in this encounter [facility] note* Diagnosis PMR (polymyalgia rheumatica) (HCC)- Primary [...] 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, pelvic region and thigh group home current use of 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 Encounter for long-term (current) use of steroids CHENCHO positive Other and unspecified nonspecific immunological findings Chronic pain of both knees Bilateral hand pain Pain in limb [facility] Diagnosis PMR (polymyalgia rheumatica) (HCC)- Primary Polymyalgia rheumatica Elevated sed rate Elevated sedimentation rate Elevated C-reactive protein (CRP) documented in this encounter [facility]* Diagnosis Steroid-induced osteoporosis Other osteoporosis documented in this encounter [facility]* Diagnosis Onset Date Resolution Status Aftercare following hip joint replacemen t surgery acuteHistory of total replacement of right hipacuteAftercare following hip joint replacement surgeryacuteHistory of total replacement of right hipacuteASHD (arteriosclerotic heart disease)acuteGAD (generalized anxiety disorder)acute HyperlipidemiaacuteHypertensionacuteHypothyroidestelle [facility] eye hospitalacute [facility] Work Phone: Evaluation note* Diagnosis PMR (polymyalgia rheumatica) (HCC)- Primary Polymyalgia rheumatica Elevated sed rate Elevated sedimentation rate Elevated C-reactive protein (CRP) Vitamin D deficiency Unspecified vitamin D deficiency documented in this encounter [facility]* Diagnosis Persistent atrial fibrillation (Multi)- Primary Atrial fibrillation Multi-vessel coronary artery stenosis Cardiomyopathy, ischemic Other specified forms of chronic ischemic heart disease Mixed hyperlipidemia 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 (Multi) Atrial fibrillation Status post aorto-coronary artery bypass graft group home current use of anticoagulant therapy BMI 35.0-35.9,adult documented in this encounter [facility] Work Phone: Evaluation note* Diagnosis Onset Date Resolution Status Aftercare following hip joint replacemen t surgery acuteHistory of total replacement of right hipacuteAftercare following hip joint replacement surgeryacuteHistory of total replacement of right hipacuteASHD (arteriosclerotic heart disease)acuteAtrial fibrillationacuteGAD (generalized anxiety disorder)acuteHypertensionacute [facility] Work Phone: Evaluation note* Diagnosis 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 (Multi) Atrial fibrillation documented in this encounter [facility] Work Phone: Evaluation note* Diagnosis Onset Date Resolution Status Aftercare following hip joint replacemen t surgery acuteHistory of total replacement of right hipacuteAftercare following hip joint replacement surgeryacuteHistory of total replacement of right hipacuteASHD (arteriosclerotic heart disease)acuteAtrial fibrillationacuteGAD (generalized anxiety disorder)acuteHypertensionacuteDiverticulitisacuteElevated lactic acid levelacuteMigraineacuteSIRS (systemic inflammatory response syndrome)acute [facility] Work Phone: Evaluation note* Diagnosis Onset Date Resolution Status Aftercare following hip joint replacemen t surgery acuteHistory of total replacement of right hipacuteAftercare following hip joint replacement surgeryacuteHistory of total replacement of right hipacuteASHD (arteriosclerotic heart disease)acuteAtrial fibrillationacuteGAD (generalized anxiety disorder)acuteHypertensionacuteAcute diverticulitisacuteDiverticulitis acuteElevated lactic acid levelacuteMigraineacuteSepsisacuteSIRS (systemic inflammatory response syndrome)acute [facility] Work Phone: Evaluation note* Diagnosis PMR (polymyalgia rheumatica) ([facility])- Primary Polymyalgia rheumatica Elevated sed rate Elevated sedimentation rate Elevated C-reactive protein (CRP) documented in this encounter [facility]* Diagnosis Onset Date Resolution Status Aftercare following hip joint replacemen t surgery acuteHistory of total replacement of right hipacuteASHD (arteriosclerotic heart disease)acuteGAD (generalized anxiety disorder)acuteAcute diverticulitisacute Acute diverticulitisacuteASHD (arteriosclerotic heart disease)acuteInflammatory polyarthritisacutePersistent atrial fibrillationacutePrimary hypertensionacute [facility] Work Phone: Evaluation note* Diagnosis 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 (tophi) Hyperuricemia Other abnormal blood chemistry documented [facility] this encounter [facility]* Diagnosis Onset Date Resolution Status Acute diverticulitis acuteElevated lactic acid levelresolvedAcute diverticulitisacuteASHD (arteriosclerotic heart disease)acuteInflammatory polyarthritisacutePersistent atrial fibrillationacutePrimary hypertensionacuteBiceps tendonitis on rightacute Rotator cuff syndrome of right shoulderacuteTraumatic complete tear of left rotator cuffacute [facility] Work Phone: Evaluation note* Diagnosis Onset Date Resolution Status Elevated lactic acid level resolvedASHD (arteriosclerotic heart disease)acuteInflammatory polyarthritis acutePrimary hypertensionacuteBiceps tendonitis on rightacuteRotator cuff syndrome of right shoulderacuteTraumatic complete tear of left rotator cuffacute ASHD (arteriosclerotic heart disease)acuteAtrial fibrillationacuteGAD (generalized anxiety disorder)acuteGastroesophageal reflux disease with esophagitis without hemorrhageacuteHypercholesterolemiaacuteOSA (obstructive sleep apnea)acutePrimary hypertensionacuteScreening PSA (prostate specific antigen)noneactiveH/O diverticulitis of [facility] examination [facility] Work Phone: Evaluation note* Diagnosis Elevated sed rate Elevated sedimentation rate Elevated C-reactive protein (CRP) PMR (polymyalgia rheumatica) ([facility]) Polymyalgia rheumatica documented in this encounter [facility]* Diagnosis Onset Date Resolution Status Biceps tendonitis on right acuteRotator cuff syndrome of right shoulderacuteTraumatic complete tear of left rotator cuffacuteAcute right flank painacuteASHD (arteriosclerotic heart disease)acuteAtrial fibrillationacuteGAD (generalized anxiety disorder)acute Gastroesophageal reflux disease with esophagitis without hemorrhageacute HypercholesterolemiaacuteHypothyroidacuteOSA (obstructive sleep apnea)acute Primary hypertensionacuteScreening PSA (prostate specific antigen)noneactiveH/O diverticulitis of [facility] Work Phone: Evaluation note* Diagnosis Onset Date Resolution Status Acute right flank pain acuteASHD (arteriosclerotic heart disease)acuteAtrial fibrillationacuteGAD (generalized anxiety disorder)acuteGastroesophageal reflux disease with esophagitis without hemorrhageacuteHypercholesterolemiaacuteHypothyroidacuteOSA (obstructive sleep apnea)acutePrimary hypertensionacuteScreening PSA (prostate specific antigen)noneactiveH/O diverticulitis of [facility] Work Phone: Evaluation note* Diagnosis Atrial fibrillation, unspecified type (Multi) Preoperative examination Unspecified pre-operative examination Presence of Watchman left atrial appendage closure device Atrial fibrillation, unspecified type (Multi) Presence of Watchman left atrial appendage closure device documented in this encounter [facility] Work Phone: Evaluation note* Diagnosis Onset Date Resolution Status Acute right flank pain acuteASHD (arteriosclerotic heart disease)acuteAtrial fibrillationacuteGAD (generalized anxiety disorder)acuteGastroesophageal reflux disease with esophagitis without hemorrhageacuteHypercholesterolemiaacuteHypothyroidacuteOSA (obstructive sleep apnea)acutePrimary hypertensionacuteScreening PSA (prostate specific antigen)noneactiveH/O diverticulitis of colonnoneactiveWellness examinationnoneactivePrimary osteoarthritis, right handacute [facility] Work Phone: Evaluation note* Diagnosis Persistent atrial fibrillation (Multi)- Primary Atrial fibrillation Status post aorto-coronary artery bypass graft Presence of Watchman left atrial appendage closure device Multi-vessel coronary artery stenosis Mixed hyperlipidemia Cardiomyopathy, ischemic Other specified forms of chronic ischemic heart disease Dilated aortic root (CMS-HCC) Thoracic aneurysm without mention of rupture Never smoked cigarettes BMI 35.0-35.9,adult documented in this encounter [facility] [facility] Work Phone: Evaluation note* Diagnosis Persistent atrial fibrillation (Multi)- Primary Atrial fibrillation Status post aorto-coronary artery bypass graft Mixed hyperlipidemia Cardiomyopathy, ischemic Other specified forms of chronic ischemic heart disease Multi-vessel coronary artery stenosis BMI 35.0-35.9,adult Never smoked cigarettes documented in this encounter [facility] Work Phone: Evaluation note* Diagnosis 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 (Multi)- Primary Atrial fibrillation Persistent atrial fibrillation (Multi) Atrial fibrillation documented in this encounter [facility] Work Phone: Evaluation note* Diagnosis Persistent atrial fibrillation (CMS-HCC)- Primary Atrial fibrillation Coronary artery disease involving [place] coronary artery of [place]ta heart without angina pectoris [facility] Diagnosis Hypomagnesemia- Primary Disorders of magnesium metabolism [facility] Diagnosis Atrial fibrillation, unspecified type (Multi) documented in this encounter [facility] Work Phone: Evaluation note* Diagnosis PMR (polymyalgia [...] joints Other disorder of calcium metabolism 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 Encounter for [...] of high-risk medication [facility] 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 (tophi) Vitamin D deficiency Unspecified vitamin D deficiency Elevated LFTs Other abnormal blood chemistry Anemia of chronic disease Anemia of other chronic disease Hyperuricemia Other abnormal blood chemistry [facility] Diagnosis Persistent atrial fibrillation (Multi)- Primary Atrial fibrillation Multi-vessel coronary artery stenosis Status post aorto-coronary artery bypass graft Mixed hyperlipidemia Dilated aortic root Thoracic aneurysm without mention of rupture Cardiomyopathy, ischemic Other specified forms of chronic ischemic heart disease Presence of Watchman left atrial appendage closure device BMI 32.0-32.9,adult Never smoked cigarettes documented in this encounter [facility] Work Phone: Evaluation note* Diagnosis Idiopathic chronic [...] hip pain, bilateral [facility] Diagnosis Pseudogout involving multiple joints- [...] Rotator cuff arthropathy of left shoulder 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 Encounter for long-term (current) use of steroids Bilateral hand swelling Chronic pain of both knees Leg weakness, bilateral Other musculoskeletal symptoms referable to limbs Chronic bilateral low back pain without sciatica Bilateral knee swelling Effusion of lower leg joint [facility] Persistent atrial fibrillation (Multi)- Primary Atrial fibrillation Multi-vessel coronary artery stenosis Status post aorto-coronary artery bypass graft Presence of Watchman left atrial appendage closure device Mixed hyperlipidemia Dilated aortic root Thoracic aneurysm without mention of rupture Cardiomyopathy, ischemic Other specified forms of chronic ischemic heart disease Never smoked cigarettes BMI 32.0-32.9,adult documented in this encounter [facility] Work Phone: Evaluation note* Diagnosis Status post aorto-coronary artery bypass graft- Primary Multi-vessel coronary artery stenosis Presence of Watchman left atrial appendage closure device Persistent atrial fibrillation (Multi) Atrial fibrillation Mixed hyperlipidemia Dilated aortic root Thoracic aneurysm without mention of rupture Cardiomyopathy, ischemic Other specified forms of chronic ischemic heart disease Never smoked cigarettes Obesity (BMI 30-39.9) documented in this encounter [facility] Work Phone: Evaluation note* Diagnosis Right leg weakness- Primary Muscle weakness (generalized) documented in this encounter [facility] Work Phone: History and physical note Author Elliott Talley [facility] August 30, 2023 11:34pmNote Date/TimeMay 2023 11:[address] [place] [address] Hospitalist H&P Signed Patient: Esme Kaminski MR#: [id number] : 1960 Acct:[id number] Age/Sex: 62 / M Adm Date: 4 Loc: Room: [address] [place] [address] Type: ADM IN Attending Dr: Elliott Talley MD Copies to: DO Elliott Hannah MD~ HPI DATE OF EXAMINATION: 08/30/23 CHIEF COMPLAINT: Dizziness, abdominal pain HISTORY OF PRESENT ILLNESS: Mr. Kaminski is a 62-year-old male with PMH of [...] that which is noted above in HPI [facility] Medical History (Updated 08/30/23 @ 23:33 [...] cardiac catheterization multiple S/P CABG x 4 2015 H/O heart artery stent prior to 2014 [...] mg tablet,delayed release 81 mg PO DAILY [place] prevention 01/29/17 [History Confirmed 08/30/23] atorvastatin 80 [...] % (Auto) 4.4 % (.) 08/30/23 18:20 Johnson % (Auto) 2.3 % (.) 08/30/23 18:20 Eos % (Auto) 0.1 % (.) 08/30/23 18:20 Baso % (Auto) 0.8 % (.) 08/30/23 18:20 Nucleat RBC Rel Count 0.0 /100 WBC (0-0.5) 08/30/23 18:20 Neut # (Auto) 13.4 x10E3/uL (1.8-7.7) H 08/30/23 18:20 Lymph # (Auto) 0.6 x10E3/uL (1.00-4.8) L 08/30/23 18:20 Johnson # (Auto) 0.3 x10E3/uL (0.0-0.8) 08/30/23 18:20 [...] pH 5.5 (5.0-9.0) 08/30/23 18:45 Ur Specific [place] 1.016 (1.001-1.030) 08/30/23 18:45 Urine Protein Negative [...] signed by Elliott Talley MD> 08/30/23 2334 [facility] Work Phone: History and physical note Author Mehrdad Mcmanus [facility] December 31, 2023 12:47pmNote Date/TimeSept2023 12:47pmJay[place] [address] Gastroenterology H&P Signed Patient: Esme Kaminski MR#: [id number] : 1960 Acct:[id number] Age/Sex: 63 / M Adm Date: 4 Loc: Room: Type: [facility] Attending Dr: Mehrdad Mcmanus MD [...] <Electronically signed by Mehrdad Mcmanus MD> 12/31/237 [facility] Work Phone: History and physical note Author Ada Valentin [facility] Date/TimeJune 2024 1:17pmJay[place] [address] Hospitalist H&P Signed Patient: Esme Kaminski MR#: [id number] : 1960 Acct:[id number] Age/Sex: 63 / M Adm Date: 5 Loc: Room: [address] [place] [address] Type: ADM INOo Attending Dr: Leidy Nuno DO Copies to: DO Ada Hannah APRN Yazid Hussein, DO~ HPI DATE OF EXAMINATION: 09/30/24 CHIEF COMPLAINT: Presyncope HISTORY OF PRESENT ILLNESS: Mr Esme Kaminski is a 63-year-old male with a past [...] systems obtained, negative unless noted in the [facility] Source: Old Records Reviewed Medical [...] % (Auto) 11.5 % (.) 09/30/24 14:21 Johnson % (Auto) 3.9 % (.) 09/30/24 14:21 Eos % (Auto) 0.2 % (.) 09/30/24 14:21 Baso % (Auto) 0.6 % (.) 09/30/24 14:21 Nucleat RBC Rel Count 0.1 /100 WBC (0-0.5) 09/30/24 14:21 Neut # (Auto) 14.2 x10E3/uL (1.8-7.7) H 09/30/24 14:21 Lymph # (Auto) 1.9 x10E3/uL (1.00-4.8) 09/30/24 14:21 Johnson # (Auto) 0.7 x10E3/uL (0.0-0.8) 09/30/24 14:21 [...] 2 Documented By: Ada Valentin APRN 09/30/24 6424 Signed By: <Electronically signed by STEPHEN Valentin> 09/30/24 3975 <Electronically signed by Leidy Nuno DO> 10/01/24 131 [facility] Work Phone: History general Narrative - Reported* Type Description Date Medical History CAD with 10 stints Medical HistoryL/S spine artificial discs times twoMedical HistoryTKR bilateral Medical HistoryhypothyroidMedical HistoryhypertensionMedical HistoryRASurgical Historylumbar TDRremoteSurgical HistoryTKR bilateralremoteSurgical Historystint placement for CAD times 10remoteSurgical Historyquad bipass4/10/15Surgical Historydouble knee replacement Dr Harmony SamanoLjckqd6485Xxgivzdyjwyztik Historysee above [employer] Other History general Narrative - Reported* Type Description Date Medical History CAD with 10 stints Medical HistoryL/S spine artificial discs times twoMedical HistoryTKR bilateral Medical HistoryhypothyroidMedical HistoryhypertensionSurgical Historylumbar TDR remoteSurgical HistoryTKR bilateralremoteSurgical Historystint placement for CAD times 10remoteSurgical Historyquad bipass4/10/15Surgical Historydouble knee urvzfxybmed9933Kxvrlrgzhnqjtqz Historysee [facility] [employer] Other History general Narrative - Reported* Type Description Date Medical History CAD with 10 stints Medical HistoryL/S spine artificial discs times twoMedical HistoryTKR bilateral Medical HistoryhypothyroidMedical HistoryhypertensionSurgical Historylumbar TDR remoteSurgical HistoryTKR bilateralremoteSurgical Historystint placement for CAD times 10remoteSurgical Historyquad bipass4/10/15Surgical Historydouble knee replacement Dr Harmony SamanoCwskqr0588Kqksggehiurhcqz Historysee [employer] Other History general Narrative - [facility] [employer] Other [employer] general Narrative - Reported* Type Description Date Medical History CAD with 10 stints Medical HistoryL/S spine artificial discs times twoMedical HistoryTKR bilateral Medical HistoryhypothyroidMedical HistoryhypertensionMedical HistoryRASurgical Historylumbar TDRremoteSurgical HistoryTKR bilateralremoteSurgical Historystint placement for CAD times 10remoteSurgical Historyquad bipass4/10/15Surgical Historydouble knee replacement Dr Harmony SamanoCsteaj0251Avgaumgc HistoryLTHA07/04/21 Hospitalization Historysee above [employer] Other History general Narrative - Reported* Type Description Date Medical History CAD with 10 stints Medical HistoryL/S spine artificial discs times twoMedical HistoryTKR bilateral Medical HistoryhypothyroidMedical HistoryhypertensionMedical HistoryRAMedical HistoryOSASurgical Historylumbar TDRremoteSurgical HistoryTKR bilateralremote Surgical Historystint placement for CAD times 10remoteSurgical Historyquad bipass4/10/15Surgical Historydouble knee replacement Dr Harmony SamanoLjhutt7869Fqyzifkh HistoryLTHA07/04/21Hospitalization Historysee above [employer] Other History general Narrative - Reported* Type Description Date Medical History ASHD Medical HistoryL/S spine artificial discs times twoMedical HistoryTKR bilateral Medical HistoryhypothyroidMedical HistoryhypertensionMedical HistoryOAMedical HistoryOSASurgical Historylumbar TDRremoteSurgical HistoryTKR bilateralremote Surgical Historystint placement for CAD times 10remoteSurgical Historyquad bipass4/10/15Surgical Historydouble knee replacement Dr Harmony SamanoKuanjb8299Iwebqyjv HistoryLTHA07/04/21Hospitalization Historysee above [employer] Other [employer] general Narrative - Reported* Type Description Date Medical History ASHD Medical HistoryL/S spine artificial discs times twoMedical HistoryTKR bilateral Medical HistoryhypothyroidMedical HistoryhypertensionMedical HistoryOAMedical HistoryOSASurgical Historylumbar TDRremoteSurgical HistoryTKR bilateralremote Surgical Historystint placement for CAD times 10remoteSurgical Historyquad bipass4/10/15Surgical Historydouble knee replacement Dr Harmony SamanoIdlboe0995Fhhcqjux HistoryLeft THA07/04/21Surgical HistoryRight THA02/2023Hospitalization Historysee above [employer] Other History general Narrative - Reported* Type Description Date Medical History ASHD Medical HistoryL/S spine artificial discs times twoMedical HistoryTKR bilateral Medical HistoryhypothyroidMedical HistoryhypertensionMedical HistoryOAMedical HistoryOSASurgical Historylumbar TDRremoteSurgical HistoryTKR bilateralremote Surgical HistoryCABG x 44//15Surgical HistoryLeft THA3//Surgical History Right THA02/2023Surgical HistoryLHC2/urgical HistoryLHC w/ PTCA/toilk7566 Surgical KbezmxgDDI8836Njyaxumz BvicnasASW1716Pbvxnzvy KdzeagqPQD6614Cnzdjszi HistoryLHC w/ PTCA/gzsrh4642Vufxloffudpllbw Historysee above [employer] Other Hospital Discharge instructions Additional Instructions Joint Replacement Discharge Instructions Your safety during your recovery process is important to us. Please seek immediate emergency care if you have sudden chest pain or shortness of breath. Additionally, please call our office at [phone] should any of the following occur: wound [...] time or it could last forever. MOOSE hose (stockinette): Wear them for 4 weeks on the operative side and 2 weeks on the nonoperative side. Try to wear these as 24/7 as possible to help decrease swelling. Weight Bearing, Walkers, and Canes: Do not remove your knee immobilizer. Do not walk without this until your therapist has removed it either on the first day after surgery or the second day after surgery. Do not attempt to walk without your walker and your care director until the therapist checks you the following [...] and/or laxatives as directed. You may take rxgf-swc-rmhruff Benadryl if itching occurs without a rash or hives. Icing and elevation will help relieve pain as well, do not underestimate the power of ice and elevation. We do recommend that you stop taking narcotic pain medications by 4-6 weeks after surgery and if necessary, continue to use anti-inflammatory medications such as Mobic (meloxicam), Celebrex (celecoxib), or an iles-gqo-zyzeqzh medication (Aleve, Motrin, Ibuprofen, etc). Driving an [...] feel free to call our office at [phone]. You are a priority of ours and we will not be upset with you if you call. We would much rather you call to confirm aspects of your recovery process as opposed to possibly hindering your recovery with inappropriate care. We are committed to providing you with the best care possible. Sarai Mendez II, MD Updated 06/23/2022[facility] Work Phone: Hospital Discharge instructions Additional Instructions Stop Eliquis on 09/16/2024[facility] Work Phone: InstructionsNot on filedocumented in this encounter [facility] filedocumented in this encounter [facility]ructionsNot on filedocumented in this encounter [facility]ructionsNot on filedocumented in this encounter [facility]InstructionsNot on filedocumented in this encounter [facility] note Author Sally Alex [facility] August 31, 2023 3:45pmNote Date/TimeMay 2023 10:54[place] [address] Hospitalist Progress Note Signed with Addenda Patient: Esme Kaminski MR#: [id number] : 1960 Acct:[id number] Age/Sex: 62 / M Adm Date: 4 Loc: Room: 2H4082-4 Type: ADM IN Attending Dr: Sally Alex [...] of Service: 08/31/2023 Subjective Subjective Narrative: Mr. Kaminski is resting comfortably in bed this morning [...] Syringe IV-PUSH 08/30/24 05:59 Not Given [facility] A&P - Hospitalist Assessment/Plan (1) Acute [...] signed by DO RADHA Zavala> 08/31/23 1054 [facility] Work Phone: Reason for referral (narrative)* Reason Referral for suspect ed PMR Known OA spine, hips, knees, hands Diagnosis 1 PMR (polymyalgia rhe umatica) (M35.3) Referral Organization [facility] Referring Provider First Name Vitaliy Referring Provider Last Name Inocente Referring Provider Specialty Internal Me dicine Referred Organization [facility] Referred Provider Sarai Georges Referred Address [address] [facility] [place], [place],[address] Referral Priority Routine [employer] Other Reason for referral (narrative)* Diagnostic Procedure Only (Routine) - AuthorizedSpecialtyDiagnoses / ProceduresReferred By Contact Referred To ContactXR IMAGING Diagnoses Steroid-induced osteoporosis Procedures DXA-FOREARM SKELETON DXA BONE DENSITY STUDY 1/>SITES Heladio Alvarado MD [address] [place] [address] [place] [address] Referral IDStatusReasonStart DateExpiration DateVisits RequestedVisits [id number] Auto-Generated Referral / [facility] for referral (narrative)* Diagnostic Procedure Only (Routine) - ClosedSpecialtyDiagnoses / ProceduresReferred By ContactReferred To ContactXR IMAGING Diagnoses Steroid-induced osteoporosis Procedures DXA-FOREARM SKELETON DXA BONE DENSITY STUDY 1/>SITES Heladio Alvarado MD [address] [place] [address] [place] [address] Referral IDStatusReasonStstaffordsville DateExpiration DateVisits RequestedVisits [id number] Auto-Generated Referral / [facility] for referral (narrative)* Consultation (Routine) - AuthorizedSpecialtyDiagnoses / ProceduresReferred By ContactReferred To ContactCardiology Diagnoses 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 (Multi) Procedures Follow Up In Cardiology Antonio Steele MD [address] [facility] [address] [place] [address] Antonio Steele MD [address] [facility] [address], [facility] [address] [place] [address] Referral IDStatusReasonStstaffordsville DateExpiration DateVisits RequestedVisits [id number]/ [facility] Work Phone: Rekvei for visit Narrative* Diagnostic Procedure Only (Routine) - ClosedSpecialtyDiagnoses / ProceduresReferred By ContactReferred To ContactXR IMAGING Diagnoses Steroid-induced osteoporosis Procedures DXA-FOREARM SKELETON DXA BONE DENSITY STUDY 1/SITES APPENDICLR Heladio David MD [address] [place] [address] [place] [id number] Referral IDStatusReasonBlooming [place] DateExpiration DateVisits RequestedVisits [id number] Auto-Generated Referral / [facility] for visit Narrative* Auth/CertSpecialtyDiagnoses / ProceduresReferred By ContactReferred To Contact Diagnoses Atrial fibrillation, unspecified type (Multi) Atrial fibrillation, unspecified type (Multi) [I48.91] Procedures WY EXCLUSION LEFT ATRIAL APPENDAGE OPEN ANY METHOD WY PERQ CLSR TCAT L ATR APNDGE W/ENDOCARDIAL IMPLNT WY PERQ CLSR TCAT L ATR APNDGE W/ENDOCARDIAL IMPLNT LAAO (Left Atrial Appendage O[place]clusion) [place] [address] [place] [address] Phone: tel: fax: [facility] [address] [facility] [address] [place] [address] Phone: tel: fax: Referral IDStatusReasonStart DateExpiration DateVisits RequestedVisits [id number] [facility] Work Phone: Reason for visit Narrative* Imaging (Routine) - AuthorizedSpecialtyDiagnoses / ProceduresReferred By ContactReferred To ContactRadiology Diagnoses Atrial fibrillation, unspecified type (Multi) Procedures [place] [address] [place] [address] Phone: tel: fax: Referral IDStatusReasonStart DateExpiration DateVisits RequestedVisits [id number] Perform Procedure [facility] Work Phone: Chief Complaint and Reason for [...] Complaint Hip pain Hip pain Chief Complaint Op/Grid Caster Left Shoulder Pain Mri Done At [facility] z47.1 z96.641 Flu Shot/ Bp Check 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 Cannot Have Surger Chief Complaint Op/Grid Caster Left Shoulder Pain Mri Done At [facility] z47.1 z96.641 Flu Shot/ Bp Check 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 Cannot Have Surger Z47.1/Z96.641 T84.84XA Z96.652 M79.662 Chief Complaint Flu Shot/ Bp Check 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 Cannot Have Surger Z47.1/Z96.641 [...] Visit Admit Date ASHD (arteriosclerotic heart disease) [facility] 2024 1:11pm GENESIS (generalized anxiety disorder) July [...] Visit Admit Date ASHD (arteriosclerotic heart disease) [facility] 2024 1:11pm GENESIS (generalized anxiety disorder) July [...] Visit Admit Date ASHD (arteriosclerotic heart disease) [facility] 2024 1:11pm GENESIS (generalized anxiety disorder) July [...] Admit Date ASHD (arteriosclerotic heart disease) [facility] 2024 1:11pm GENESIS (generalized anxiety [...] Admit Date ASHD (arteriosclerotic heart disease) [facility] 2024 1:11pm GENESIS (generalized anxiety [...] m Chest Pain August 12, 2024 3:23pm [facility]: Chest Pain-HIGH RISK August 19 4:09pm Reason for Visit Admit Date ASHD (arteriosclerotic heart disease) [facility] 2024 1:11pm GENESIS (generalized anxiety [...] 06, 2024 11:36am ASHD (arteriosclerotic heart disease) Nm y 2024 12:48pm Atrial fibrillation August 11, [...] m Chest Pain August 12, 2024 3:23pm [facility]: Chest Pain-HIGH RISK August [...] m Chest Pain August 12, 2024 3:23pm [facility]: Chest Pain-HIGH RISK August [...] m Chest Pain August 12, 2024 3:23pm [facility]: Chest Pain-HIGH RISK August [...] 2024 4:09p m FER (obstructive sleep apnea) May 13th, 2025 4:09pm Primary hypertension August 19, 2024 4:09 [...] m Chest Pain August 12, 2024 3:23pm [facility]: Chest Pain-HIGH RISK August [...] 2024 3:07am ASHD (arteriosclerotic heart disease) Ju 2024 3:07am Atrial fibrillation September 29, 2024 [...] 15, 2024 10:51am Other spondylosis with radiculopathy, [facility] December 15, 2024 10:51am Acute [...] 15, 2024 10:51am Other spondylosis with radiculopathy, [facility] December 15, 2024 10:51am Acute bronchitis due to other specified organisms December 26, 2024 9:33am Rib fracture December 26, 2024 9:33am Laceration of leg excluding thigh, with complication December 26, 2024 9:33am Cellulitis of leg without foot, left Sep tember 2024 9:33am Low back pain January 05, 2025 9:45am Other chronic pain January 05, 2025 9:45am Other spondylosis with radiculopathy, [facility] January 05, 2025 9:45am Chief [...] 15, 2024 10:51am Other spondylosis with radiculopathy, [facility] December 15, 2024 10:51am Acute bronchitis due to other specified organisms December 26, 2024 9:33am Rib fracture December 26, 2024 9:33am Laceration of leg excluding thigh, with complication December 26, 2024 9:33am Cellulitis of leg without foot, left Sep tember 2024 9:33am Low back pain January 05, 2025 9:45am Other chronic pain January 05, 2025 9:45am Other spondylosis with radiculopathy, [facility] January 05, 2025 9:45am Greater trochanteric [...] 09, 2024 8:11am Other spondylosis with radiculopathy, [facility] December 15, 2024 10:51am Low back pain December 15, 2024 10:51am Other chronic pain December 15, 2024 10:51am Acute bronchitis due to other specified organisms December 26, 2024 9:33am Rib fracture December 26, 2024 9:33am Laceration of leg excluding thigh, with complication December 26, 2024 9:33am Cellulitis of leg without foot, left Sep tember 2024 9:33am Other spondylosis with radiculopathy, [facility] January 05, 2025 9:45am Low back [...] M54.50 January 27, 2025 8:52pm MRI RESULTS [facility] January 29, 2025 1 0:02am Reason for Visit Admit Date Persistent atrial fibrillation December 09, 2024 8:11am Other spondylosis with radiculopathy, [facility] December 15, 2024 10:51am Low back pain December 15, 2024 10:51am Other chronic pain December 15, 2024 10:51am Acute bronchitis due to other specified organisms December 26, 2024 9:33am Rib fracture December 26, 2024 9:33am Laceration of leg excluding thigh, with complication December 26, 2024 9:33am Cellulitis of leg without foot, left Sep tember 2024 9:33am Other spondylosis with radiculopathy, [facility] January 05, 2025 9:45am Low back [...] 12, 2025 2:23pm Other spondylosis with radiculopathy, [facility] January 29, 2025 10:02am Low back [...] M54.50 January 27, 2025 8:52pm MRI RESULTS [facility] January 29, 2025 1 0:02am back pain January 29, 2025 5 :26pm Chief Complaint Admit Date Drug Load December [...] M54.50 January 27, 2025 8:52pm MRI RESULTS [facility] [facility] January 29, 2025 1 0:02am back pain January 29, 2025 5 :26pm Back Issues/ER f/u-HIGH RISK January 1:53pm Bump on L Wrist February 17, 2025 3:01pm Reason for Visit Admit Date Persistent atrial fibrillation December 09, 2024 8:11am Low back pain December 15, 2024 10:51am Other chronic pain December 15, 2024 10:51am Other spondylosis with radiculopathy, [facility] December 15, 2024 10:51am Acute bronchitis due to other specified organisms December 26, 2024 9:33am Rib fracture December 26, 2024 9:33am Laceration of leg excluding thigh, with complication December 26, 2024 9:33am Cellulitis of leg without foot, left Sep tember 2024 9:33am Low back pain January 05, 2025 9:45am Other chronic pain January 05, 2025 9:45am Other spondylosis with radiculopathy, [facility] January 05, 2025 9:45am Greater trochanteric [...] 2025 1 0:02am Other spondylosis with radiculopathy, [facility] January 29, 2025 10:02am ASHD (arteriosclerotic heart disease) Oc tober 2024 1:53pm Lumbosacral spondylosis with radiculopat hy February 02, 2025 1:53pm Nonhealing ulcer of left lower leg Octob er 2024 1:53pm Type 2 diabetes mellitus with hyperglyce esvin February 02, 2025 1:53pm Chief Complaint Admit Date Drug Load December [...] M54.50 January 27, 2025 8:52pm MRI RESULTS [facility] January 29, 2025 1 [...] 15, 2024 10:51am Other spondylosis with radiculopathy, [facility] December 15, 2024 10:51am Acute bronchitis due to other specified organisms December 26, 2024 9:33am Rib fracture December 26, 2024 9:33am Laceration of leg excluding thigh, with complication December 26, 2024 9:33am Cellulitis of leg without foot, left Sep tember 2024 9:33am Low back pain January 05, 2025 9:45am Other chronic pain January 05, 2025 9:45am Other spondylosis with radiculopathy, [facility] January 05, 2025 9:45am Greater trochanteric [...] 1 0:02am Other spondylosis with radiculopathy, [facility] January 29, 2025 10:02am ASHD (arteriosclerotic [...] left upper extremity N ovember 2024 3:01pm Family History Relationship Condition Age at Onset [...] diseaseUnknownbrotherDeceasedUnknownExposure to Agent OrangeUnknownbrotherCerebral aneurysmUnknown Advance Directives Advance Directive Response Recorded Date/ Time Advance Directives No January 25, 2017 2:08pm Advance Directive Response Recorded Date/ Time Advance Directives No January 25, 2017 1:08pm Date ActivatedDate EefqjhnonzjQjsmywqo92/22/2024 9:31 AMQuestionAnswerComments Plan of Care:* Code Status Discussion Completed Decision Maker:* Patient Date ActivatedDate JrtbzeslcukNvaudnny78/22/2024 9:31 AMQuestionAnswerComments Plan of Care:* Code Status Discussion Completed Decision Maker:* Patient Reason for Referral SpecialtyDiagnoses / ProceduresReferred By ContactReferred To Contact Diagnoses Persistent atrial fibrillation ([facility]) Procedures Cardioversion Sarai Barry MD [address] [place] [address] Referral IDStatusReasonStart DateExpiration DateVisits RequestedVisits [id number] Review/[id number] / ProceduresReferred By ContactReferred To Contact Diagnoses 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 (Multi) Procedures ECG 12 Lead Antonio Steele MD [address] [facility] 2, [place] [address] [place] [address] Referral IDStatusReasonStart DateExpiration DateVisits RequestedVisits [id number]/19/20244/[id number] / Procedures Referred By ContactReferred To ContactCardiology Diagnoses 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 (Multi) group home current use of anticoagulant therapy Procedures Cardioversion External Antonio Steele MD [address] [facility] 2, [place] [address] [place] [address] Referral IDStatusReasonStart DateExpiration DateVisits RequestedVisits [id number] Review/[id number] IDStatusReasonStart DateExpiration DateVisits RequestedVisits [id number]/19/[id number] / ProceduresReferred By ContactReferred To Contact Cardiology Diagnoses 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 (Multi) Procedures Follow Up In Cardiology Antonio Steele MD [address] [facility] 2, [place] [id number] Antonio Steele MD [address] [place] [address] 2, [place] [phone] Referral IDStatusReasonStart DateExpiration DateVisits RequestedVisits [id number]/19/20244/ Reason *FU 11/[address] efer to [address] pineda for rheumatology. labs with Dr Brower. Saw [facility], wants second opinion Diagnosis 1 Multiple joint pain (M25.50) Referral Organization [facility] Referring Provider First Name Melinda Referring Provider Last Name Luba Referring Provider Specialty Nurse Pract itioner Referred Organization [facility] Referred Provider Heladio Pineda Referred Address [address] [place], [place],[address] Referred Provider Specialty Internal Med icine Referral [...] 1 Tongue ulceration (K 14.0) Referral Organization [facility] Referring Provider First Name Vitaliy Referring Provider Last Name Inocente Referring Provider Specialty Internal Tn dicargenis Referred Organization [facility] Referred Provider BobotuRadha rosas Referred Address ,[place], [place],[address] Referred Provider Specialty Ear, Nose an d [...] or prosecute any alcohol or drug abuse patient.[facility] HospitalIn the event this information is protected by the Federal Confidentiality of Alcohol and Drug Abuse Patient Records regulations: The Federal rules restrict any use of the information to criminally investigate or prosecute any alcohol or drug abuse patient.[facility] HospitalIn the event this information is protected by the Federal Confidentiality of Alcohol and Drug Abuse Patient Records regulations: The Federal rules restrict any use of the information to criminally investigate or prosecute any alcohol or drug abuse patient.[facility] HospitalIn the event this information is protected by the Federal Confidentiality of Alcohol and Drug Abuse Patient Records regulations: The Federal rules restrict any use of the information to criminally investigate or prosecute any alcohol or drug abuse patient.[facility] HospitalIn the event this information is protected by the Federal Confidentiality of Alcohol and Drug Abuse Patient Records regulations: The Federal rules restrict any use of the information to criminally investigate or prosecute any alcohol or drug abuse patient.[facility] HospitalIn the event this information is protected by the Federal Confidentiality of Alcohol and Drug Abuse Patient Records regulations: The Federal rules restrict any use of the information to criminally investigate or prosecute any alcohol or drug abuse patient.[facility] HospitalIn the event this information is protected by the Federal Confidentiality of Alcohol and Drug Abuse Patient Records regulations: The Federal rules restrict any use of the information to criminally investigate or prosecute any alcohol or drug abuse patient.[facility] HospitalIn the event this information is protected by the Federal Confidentiality of Alcohol and Drug Abuse Patient Records regulations: The Federal rules restrict any use of the information to criminally investigate or prosecute any alcohol or drug abuse patient.[facility] HospitalIn the event this information is protected by the Federal Confidentiality of Alcohol and Drug Abuse Patient Records regulations: The Federal rules restrict any use of the information to criminally investigate or prosecute any alcohol or drug abuse patient.[facility] HospitalIn the event this information is protected by the Federal Confidentiality of Alcohol and Drug Abuse Patient Records regulations: The Federal rules restrict any use of the information to criminally investigate or prosecute any alcohol or drug abuse patient.[facility] HospitalIn the event this information is protected by the Federal Confidentiality of Alcohol and Drug Abuse Patient Records regulations: The Federal rules restrict any use of the information to criminally investigate or prosecute any alcohol or drug abuse patient.[facility] HospitalIn the event this information is protected by the Federal Confidentiality of Alcohol and Drug Abuse Patient Records regulations: The Federal rules restrict any use of the information to criminally investigate or prosecute any alcohol or drug abuse patient.[facility] HospitalIn the event this information is protected by the Federal Confidentiality of Alcohol and Drug Abuse Patient Records regulations: The Federal rules restrict any use of the information to criminally investigate or prosecute any alcohol or drug abuse patient.[facility] HospitalIn the event this information is protected by the Federal Confidentiality of Alcohol and Drug Abuse Patient Records regulations: The Federal rules restrict any use of the information to criminally investigate or prosecute any alcohol or drug abuse patient.[facility] HospitalIn the event this information is protected by the Federal Confidentiality of Alcohol and Drug Abuse Patient Records regulations: The Federal rules restrict any use of the information to criminally investigate or prosecute any alcohol or drug abuse patient.[facility] HospitalIn the event this information is protected by the Federal Confidentiality of Alcohol and Drug Abuse Patient Records regulations: The Federal rules restrict any use of the information to criminally investigate or prosecute any alcohol or drug abuse patient.[facility] HospitalIn the event this information is protected by the Federal Confidentiality of Alcohol and Drug Abuse Patient Records regulations: The Federal rules restrict any use of the information to criminally investigate or prosecute any alcohol or drug abuse patient.[facility] HospitalIn the event this information is protected by the Federal Confidentiality of Alcohol and Drug Abuse Patient Records regulations: The Federal rules restrict any use of the information to criminally investigate or prosecute any alcohol or drug abuse patient.[facility] REASON FOR VISIT (unrecogniz ed section and content) ReasonCommentsConsultPainOngoing generalized pain.ReasonCommentsResultsReason CommentsRefill RequestReasonCommentsFollow UpReasonCommentsResultsOrdersReason CommentsNew Patient QnxgtTazo-cofe-simsvpjeq care, previous [facility] patient SpecialtyDiagnoses / ProceduresReferred By ContactReferred To Contact Diagnoses 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 (Multi) Procedures ECG 12 Lead Antonio Steele MD [address] [place] [address], [place] [phone] Referral IDStatusReasonStart DateExpiration DateVisits RequestedVisits [id number]/19/20244/19/[id number] visitSpecialty Diagnoses / ProceduresReferred By ContactReferred To Contact Diagnoses 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 (Multi) Procedures ECG 12 Lead Antonio Steele MD [address] [facility] 2, [address] [address] Referral IDStatusReasonStart DateExpiration DateVisits RequestedVisits [id number]/19/20244/19/[id number] DateCommentsRefill Tcozxza65/05/2024ReasonCommentsFollow-upWatchman 01/29/24ReasonCommentsFollow-up 3 monthSpecialtyDiagnoses / ProceduresReferred By ContactReferred To Contact Cardiology Diagnoses 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 (Multi) Procedures Follow Up In Cardiology Antonio Steele MD [address] [facility] 2, [address] [place] [phone] Antonio Steele MD [address] [facility] 2, [place] [address] [place], [place] [address] Referral IDStatusReasonStart DateExpiration DateVisits RequestedVisits [id number]/19/20244/041195UqcepvZojommnodqfqnxzdEltpodfcw Diagnoses / ProceduresReferred By ContactReferred To ContactCardiology Diagnoses Persistent atrial fibrillation (Multi) Antonio Steele MD [address] [facility], [place] [address] [place] [address] [place] [address] [place] [address] Referral IDStatusReasonStart DateExpiration DateVisits RequestedVisits [id number] Specialty Services Required /[id number] RefillReasonCommentsFollow-up6M and [facility] 4Coronary Artery DiseaseHypertensionAtrial FibrillationHospital Follow-upReasonOnset DateCommentsEP Surgery (CDVN)4ReasonOnset Date CommentsEP Surgery ( Pt Education)4ReasonCommentsFollow UpPainOngoing generalized pain.ReasonCommentsFollow-up6 month follow up for cardiomyopathy SpecialtyDiagnoses / ProceduresReferred By ContactReferred To ContactCardiology Diagnoses Multi-vessel coronary artery stenosis Procedures Follow Up In Cardiology Antonio Steele MD [address] [facility] 2, [place] [phone] Phone: tel: fax: Antonio Steele MD [address] [facility] 2, [place] [address] Phone: tel: fax: Referral IDStatusReasonStstaffordsville DateExpiration DateVisits RequestedVisits [id number]/7/202411/7/582239TopvyiXnqqdtjsHygyglNzqzyrussdi ReasonCommentsOsteoarthritisCPPDPMRReasonCommentsCPPDGoutArthritisReasonComments Follow-up3 months dccSpecialtyDiagnoses / ProceduresReferred By ContactReferred To ContactCardiology Diagnoses Multi-vessel coronary artery stenosis Procedures Follow Up In Cardiology Antonio Steele MD [address] [place] [address] 2, [place] [address] Phone: tel: fax: Antonio Steele MD [address] [place] [address] 2, [place] [address] Phone: tel: fax: Referral IDStatusReasonStart DateExpiration DateVisits RequestedVisits [id number]/16/20255/16/[id number]-agDEM visit SpecialtyDiagnoses / ProceduresReferred By ContactReferred To Contact Diagnoses History of cardioversion Abnormal electrocardiogram (ECG) (EKG) Persistent atrial fibrillation (Multi) Procedures ECG 12 Lead Antonio Steele MD [address] [facility] 2, [place] [phone] Phone: tel: fax: Referral IDStatusReasonStart DateExpiration DateVisits RequestedVisits [id number]/5/20259/[id number]-xuPCP results SpecialtyDiagnoses / ProceduresReferred By ContactReferred To ContactCardiology Diagnoses Multi-vessel coronary artery stenosis Procedures Follow Up In Cardiology Antonio Steele MD [address] [facility] 2, [place] [phone] Phone: tel: fax: Antonio Steele MD [address] [facility] 2, [place] [phone] Phone: tel: fax: Referral IDStatusReasonStart DateExpiration DateVisits RequestedVisits [id number]/13/20258/13/[id number] Pain Care Teams (unrecognized sec tion and content) Team Status: Active Member Role Status Dates Vitaliy Brower DO Primary Care Provider Active Team Status: Inactive Member Role Status Dates Vitaliy Brower DO Primary Care Provider Active Start: October 08, 2024 End: October 08Zain Aguilar ProviderActiveStart: October 08, 2024 End: October 08, 2024 Team Status: Inactive Member Role Status Dates Vitaliy Brower DO Primary Care Provider Active Start: October 23, 2024 End: October 23, 2024Sarai Mendez II, MDAttending ProviderActiveStart: October 23, 2024 End: October 23, 2024 Team Status: Inactive Member Role Status Dates Vitaliy Brower DO Primary Care Provider Active Start: December 09, 2024 End: December 12, 2024Antonio Steele MDAdmdesi ProviderActiveStart: December 09, 2024 End: December 12, 2024Antonio Steele MDAttending ProviderActiveStart: December 09, 2024 End: December 12, 2024 Team Status: Inactive Member Role Status Dates Vitaliy Brower DO Primary Care Provider Active Start: December 15, 2024 End: December 15, 2024Rosa Clemens ProviderActiveStart: December 15, 2024 End: December 15, 2024 Team Status: Active Member Role Status Dates Vitaliy Brower DO Primary Care Provider Active Start: December 15, 2024 Marcela Angel , CMAAttending ProviderActiveStart: December 15, 2024 Team Status: Active Member Role Status Dates Vitaliy Brower DO Primary Care Provider Active Start: 2024 SERIGO Araiza-Barbie ProviderActiveStart: 2024 Team Status: Active Member Role [...] 29, 2024 End: December 29, 2024Jonathan Samano , MDAttending ProviderActiveStart: December 29, 2024 End: [...] Active Start: September 30, 2024 End: October 01rosie Medina MDEmejared ProviderActiveStart: September 30, 2024 End: October 01azid Yaakov , DOAdmit ProviderActiveStart: September 30, 2024 End: October 01azid Yaakov , DOAttending ProviderActiveStart: September 30, 2024 End: October 01, 2024Antonio Steele MDOther ProviderActiveStart: September 30, 2024 End: October 01, 2024 Team Status: Inactive Member Role Status Dates Vitaliy Brower DO Primary Care Provider Active Start: July 30, 2024 End: July 30enrigoberto Brower DOAttfatimah ProviderActiveStart: July 30, 2024 End: July 30, 2024 Team Status: Inactive Member Role Status Nader Brower DO Primary Care Provider Active Start: August 01, 2024 End: August 01, 2024Bettye Brizuela ProviderActiveStart: August 01, 2024 End: August 01, 2024 Team Status: Inactive Member Role Status Nader Brower DO Primary Care Provider Active Start: August 04, 2024 End: August 04ollmarsha Nichole MDAttending ProviderActiveStart: August 04, 2024 End: [...] ProviderActiveStart: August 11, 2024 End: August 13, 2024John Rice ProviderActiveStart: August 11, 2024 End: August 13arnulfo Posadas MDOther ProviderActiveStart: August 11, 2024 End: August 13, 2024Geno Corona , APRNOther ProviderActiveStart: August 11, 2024 End: August 13, 2024Tami Steele MDOther ProviderActiveStart: August 11, 2024 End: August 13, 2024John Teague ProviderActiveStart: August 11, 2024 End: August 13, 2024Munir Foote MDOther ProviderActiveStart: August 11, 2024 End: August 13ace Amaya , BUSINESS INTERN-BCOther ProviderActiveStart: August 11, 2024 End: August 13, 2024 Team Status: Active Member Role Status Dates Vitaliy Brower DO Primary Care Provider Active Start: August 12, 2024 Marcela Ortiz CMAAttfatimah ProviderActiveStart: August 12, 2024 Team Status: Active Member Role Status Dates Vitaliy Brower DO Primary Care Provider Active Start: August 12, 2024 Winnie Farris DOEmejared ProviderActiveStart: August 12, 2024 Portia Pineda ProviderActiveStart: August 12, 2024 Lydia Connelly MDOther ProviderActiveStart: August 12, 2024 Mary Ann Miller RNOther ProviderActiveStart: August 12, 2024 Kathy Valle DOOther ProviderActiveStart: August 12, 2024 Lala Arce MDOther ProviderActiveStart: August 12, 2024 Nehemiah Mcknight MDOther ProviderActiveStart: August 12, 2024 Antonio Steele MDOther ProviderActiveStart: August 12, 2024 Dutch Posadas MDOther ProviderActiveStart: August 12, 2024 Geno Corona , APRNOther ProviderActiveStart: August 12, 2024 Tami Steele MDOther ProviderActiveStart: August 12, 2024 Arnaldo Mccarty MDOther ProviderActiveStart: August 12, 2024 Munir Foote MDOther ProviderActiveStart: August 12, 2024 Nicolle Amaya BUSINESS INTERN-BCOther ProviderActiveStart: August 12, 2024 Ada Woodruff MDAttending [...] Start: September 09, 2024 End: September 09, 2024MoRosa Cabrera ProviderActiveStart: September 09, 2024 End: September 09, 2024 Team Status: Active Member Role Status Dates Vitaliy Brower DO Primary Care Provider Active Start: June 30, 2024 Heladio Blackkalyan ProviderActiveStart: June 30, 2024 Team Status: Inactive [...] Start: August 11, 2024 End: August 13, 2024Almita Pérez ProviderActiveStart: August 11, 2024 End: August 13, 2024MoPortia Sheffield Provider, Attending ProviderActive Start: August 11, 2024 End: August 13, 2024Mary Ann Miller RNOther ProviderActiveStart: August 11, 2024 End: August 13, 2024W Thaddeus Valle DOOther ProviderActiveStart: August 11, 2024 End: August 13, 2024Lala Arce MDOther ProviderActiveStart: August 11, 2024 End: August 13, 2024Nehemiah Mcknight MDOther ProviderActiveStart: August 11, 2024 End: August 13, 2024John Rice ProviderActiveStart: August 11, 2024 End: August 13arnulfo Posadas MDOther ProviderActiveStart: August 11, 2024 End: August 13, 2024Marivel Brito ProviderActiveStart: August 11, 2024 End: August 13, 2024Tami Steele MDOther ProviderActiveStart: August 11, 2024 End: August 13, 2024Arnaldo Mccarty MDOther ProviderActiveStart: August 11, 2024 End: August 13, 2024John Segoiva ProviderActiveStart: August 11, 2024 End: August 13CLAUDIA FrancisP-BCOther ProviderActiveStart: August 11, 2024 End: August 13, 2024 Team Status: Active Member Role Status Dates Vitaliy Brower DO Primary Care Provider Active Start: August 12, 2024 Almita Pérez ProviderActiveStart: August 12, 2024 Lydia Connelly MDAdmit [...] Tami Steele MDOther ProviderActiveStart: August 12, 2024 John Teague ProviderActiveStart: August 12, 2024 Munir Foote MDOther ProviderActiveStart: August 12, 2024 Nicolle Amaya , BUSINESS INTERN-BCOther ProviderActiveStart: August 12, 2024 Ada Woodruff MDAttending ProviderActiveStart: August 12, 2024 Team Status: Inactive Member Role Status Dates Vitaliy Brower DO Primary Care Provide r, Attending Provider Active Start: August 19, 2024 End: August 19, 2024 Team Status: Inactive Member Role Status Dates Vitaliy Brower DO Primary Care Provider Active Start: May 29, 2024 End: May 29, 2024Rosa Ortiz ProviderActiveStart: May 29, 2024 End: May 29, 2024 Team Status: Active Member Role Status Dates Vitaliy Brower DO Primary Care Provider Active Start: April 22, 2024 Marcela Ortiz CMAAttending ProviderActiveStart: April 22, 2024 Team Status: Inactive [...] ProviderActiveStart: August 30, 2023 End: September 01, 2023Sally Alex MDAttfatimah ProviderActiveStart: August 30, 2023 End: September 01, 2023 Team Status: Active Member Role Status Nader Brower DO Primary Care Provider Active Start: September 05, 2023 Heladio Silva ProviderActiveStart: September 05, 2023 Team Status: Active Member Role Status Nader Brower DO Primary Care Provider Active Start: September 07, 2023 Debra Moya ProviderActiveStart: September 07, 2023 Team Status: Inactive [...] Start: August 02, 2023 End: August 02, 2023Rosa Rice Provider, Referring ProviderActiveStart: August 02, 2023 End: August 02, 2023 Team Status: Inactive Member Role Status Nader Brower DO Primary Care Provider Active Start: June 20, 2023 End: June 19shirley Mendez II, MDAttending ProviderActiveStart: June 20, 2023 End: June [...] DO Primary Care Provider Active Chio Nichole MDAttfatimah ProviderActive Team Status: Inactive Member Role Status Dates Vitaliy Brower , DO Primary Care Provider Active Rosa Clemens ProviderActive Team Status: Inactive Member Role Status Dates Vitaliy Brower , DO Primary Care Provider Active Bettye Brizuela ProviderActive Team Status: Inactive Member Role Status Dates Vitaliy Brower , Primary Care Provider Active Joseph Deal ProviderActive Team Status: Inactive Member Role Status Dates Vitaliy Brower , DO Primary Care Provider Active Rosa Armendariz ProviderActive Team Status: Inactive Member Role Status Dates Vitaliy Brower , DO Primary Care Provider Active Nat Beatty ProviderActiveTeam MemberRelationshipSpecialty Start DateEnd Date Vitaliy Brower, [address] [place] [address] PCP - GeneralInternal Medicine01/05/23 Melinda Verduzco, EN[employer] LEVEL ELECTRICAL ENGINEER [address] [place] [id number] ReferringOrthopedics11/24/22Team MemberRelationshipSpecialtyStart DateEnd Date Vitaliy Brower, DO [address] [facility] [id number] PCP - GeneralInternal Medicine01/05/23 Melinda Verduzco, ENTRY LEVEL ELECTRICAL ENGINEER [address] [place] [id number] ReferringOrthopedics11/24/22Team MemberRelationshipSpecialtyStart DateEnd Date Vitaliy Brower, [address] [facility] [id number] PCP - GeneralInternal Medicine01/05/23 Melinda Verduzco, ENTRY LEVEL ELECTRICAL ENGINEER [address] [place] [id number] ReferringOrthopedi11/24/22Team MemberRelationshipSpecialtyStart DateEnd Date Vitaliy Brower, [address] [facility] [id number] PCP - GeneralInternal Medicine01/05/23 Melinda Verduzco, ENTRY LEVEL ELECTRICAL ENGINEER [address] [place] [id number] ReferringOrthopecentinela [facility]11/24/22 Team Status: Inactive Member Role Status Dates [...] 16, 2023 End: May 16shirley Mendez II, MDAttending ProviderActiveStart: May 16, 2023 End: May 16, 2023 Team Status: Inactive Member Role Status Dates Vitaliy Brower DO Primary Care Provider Active Start: May 21, 2023 End: May 21shirley Mendez II, MDAttending ProviderActiveStart: May 21, 2023 End: May 21, 2023 Team Status: Inactive Member Role Status Dates Vitaliy Brower DO Primary Care Provider Active Start: May 21, 2023 End: May 21, 2023Melinda Verduzco NP-CAtemding ProviderActiveStart: May 21, 2023 End: May 21, 2023Team MemberRelationshipSpecialtyStart DateEnd Date Vitaliy Brower DO [address] [place] [address] PCP - GeneralInternal Medicine01/05/23 Melinda Verduzco CNP [address] [place] [id number] ReferringOrthopedics11/24/22Team MemberRelationshipSpecialtyStart DateEnd Date Vitaliy Brower, DO [address] [facility] [id number] PCP - GeneralInternal Medicine01/05/23 Melinda Verduzco, ENTRY LEVEL ELECTRICAL ENGINEER [address] [place] [id number] ReferringOrthopedics11/24/22Team MemberRelationshipSpecialtyStart DateEnd Date Vitaliy Brower, DO [address] [place] [address] PCP - GeneralInternal Medicine01/05/23 Melinda Verduzco, ENTRY LEVEL ELECTRICAL ENGINEER [address] [place] [id number] ReferringOrthopedi11/24/22Team MemberRelationshipSpecialtyStart DateEnd Date Vitaliy Brower DO [address] [facility] [address] PCP - GeneralInternal Medicine07/12/23Team MemberRelationshipSpecialtyStart Date End Date Vitaliy Brower DO PCP - GeneralInternal Medicine07/12/23Team MemberRelationshipSpecialtyStart Date End Date Vitaliy Brower DO [address] [place] [address] PCP - GeneralInternal Medicine01/05/23 Melinda Verduzco, ENTRY LEVEL ELECTRICAL ENGINEER [address] [place] [id number] ReferringOrthopedics11/24/22Team MemberRelationshipSpecialtyStart DateEnd Date Vitaliy Brower DO [address] [place] [address] PCP - GeneralInternal Medicine01/05/23 Melinda Verduzco, ENTRY LEVEL ELECTRICAL ENGINEER [address] [place] [id number] ReferringOrthopedics11/24/22Team MemberRelationshipSpecialtyStart DateEnd Date Vitaliy Brower DO [address] [place] [address] PCP - GeneralInternal Medicine01/05/23 Melinda Verduzco, ASSEMBLY MACHINE FEEDER.ENTRY LEVEL ELECTRICAL ENGINEER [address] [place] [id number] ReferringOrthopecentinela [facility]11/24/22 Team Status: Active Member Role Status Dates Vitaliy Brower DO Primary Care Provide r, Attending Provider Active Start: November 21, 2023 Team Status: Inactive Member Role Status Dates Vitaliy Brower DO Primary Care Provider Active Start: December 31, 2023 End: December 31, 2023Chris Baldwinending ProviderActiveStart: December 31, 2023 End: December 31, 2023 Team Status: Active Member Role Status Dates Vitaliy Brower DO Primary Care Provider Active Start: December 31, 2023 ImChris Quinnending Provider, Other ProviderActiveStart: December 31, 2023 Team Status: Active Member Role Status Dates Vitaliy Brower DO Primary Care Provider Active Start: December 31, 2023 Imani Contreras CMAAttfatimah ProviderActiveStart: December 31, 2023 Team Status: Inactive Member Role Status Dates Vitaliy Brower DO Primary Care Provider Active Start: January 24, 2024 End: January 24, 2024StoRsa Gutierrez ProviderActiveStart: January 24, 2024 End: January 24, 2024Team MemberRelationshipSpecialtyStart DateEnd Date Vitaliy Brower DO PCP - [facility]07/12/23 Team Status: Inactive Member Role Status Dates Vitaliy Brower DO Primary Care Provider Active Start: February 12, 2024 End: February 11Rosa Fisher ProviderActiveStart: February 12, 2024 End: February 12, 2024Team MemberRelationshipSpecialtyStart DateEnd Date Vitaliy Brower DO PCP - [facility]07/12/23 Team Status: Inactive Member Role Status Dates Vitaliy Brower DO Primary Care Provider Active Start: February 18, 2024 End: February 18, 2024Sukhjinder Montesinos DOAttfatimah ProviderActiveStart: February 18, 2024 End: February 18, 2024Team MemberRelationshipSpecialtyStart DateEnd Date Vitaliy Brower DO [facility] - [facility]07/12/23Team MemberRelationshipSpecialtyStart Date End Date Vitaliy Brower DO PCP - [facility]07/12/23Team MemberRelationshipSpecialtyStart Date End Date Vitaliy Brower DO [address] [place] [address] PCP [facility]01/08/18 Team Status: Inactive Member Role Status Dates Vitaliy Brower DO Primary Care Provide r, Attending Provider Active Start: March 17, 2024 End: March 17, 2024Team MemberRelationshipSpecialtyStart DateEnd Date Vitaliy Brower DO [address] [place] [address] PCP - Hlsppuy42/2/18Team MemberRelationshipSpecialtyStart DateEnd Date Vitaliy Brower, DO [address] [place] [address] PCP - Wlgaytz73/2/18Team MemberRelationshipSpecialtyStart DateEnd Date Vitaliy Brower, DO [address] [facility] [place] [address] PCP - Afmnjyg56/2/18Team MemberRelationshipSpecialtyStart DateEnd Date Vitaliy Brower, DO [address] [place] [address] PCP - Xqkmjsq53/2/18Team MemberRelationshipSpecialtyStart DateEnd Date Vitaliy Brower, DO [address] [place] [address] PCP - GeneralInternal Medicine05/07/24Team MemberRelationshipSpecialtyStart Date End Date Vitaliy Brower, DO [address] [place] [id number] PCP - GeneralInternal Medicine01/05/23 Melinda Verduzco APRN.ENTRY LEVEL ELECTRICAL ENGINEER [address] [place] [id number] ReferringOrthopedics11/24/22Team MemberRelationshipSpecialtyStart DateEnd Date Vitaliy Brower, DO [address] [place] [place] [place] [address] PCP - GeneralInternal Medicine01/05/23 Melinda Verduzco APRN.ENTRY LEVEL ELECTRICAL ENGINEER [address] [place] [address] ReferringOrthopedi11/24/22 Team Status: Active Member Role Status Dates Vitaliy Brower , Primary Care Provider Active Start: August 04, 2024 Chio Nichole , MDAttending ProviderActiveStart: August 04, 2024 Team Status: Active Member Role Status Dates Vitaliy Brower DO Primary Care Provider Active Start: August 06, 2024 Sarai Mendez II, MDAttending ProviderActiveStart: August 06, 2024 Team Status: Active Member Role Status Dates Vitaliy Brower DO Primary Care Provider Active Start: August 11, 2024 Winnie Farris , DOEmergency ProviderActiveStart: August 11, 2024 Lydia Connelly [facility] Provider, Attending ProviderActiveStart: August 11, 2024 Team MemberRelationshipSpecialtyStart DateEnd Date Vitaliy Brower DO [address] [place] [address] PCP - GeneralInternal Medicine05/07/24Team MemberRelationshipSpecialtyStart Date End Date Vitaliy Brower DO [address] [place] [address] PCP - GeneralInternal Medicine01/05/23 Melinda Verduzco APRN.ENTRY LEVEL ELECTRICAL ENGINEER [address] [address] ReferringOrthsuburban medical center11/24/22Team MemberRelationshipSpecialtyStart DateEnd Date Vitaliy Brower DO [address] [place], [place] [id number] PCP - GeneralInternal Medicine01/05/23 Melinda Verduzco, ASSEMBLY MACHINE FEEDER.ENTRY LEVEL ELECTRICAL ENGINEER [address] [place] [id number] ReferringOrthopedics11/24/22Team MemberRelationshipSpecialtyStart DateEnd Date Vitaliy Brower DO [address] [place] [address] PCP - GeneralInternal Medicine01/05/23 Melinda Verduzco, ASSEMBLY MACHINE FEEDER.ENTRY LEVEL ELECTRICAL ENGINEER [address] [place] [id number] ReferringOrthopedi11/24/22Team MemberRelationshipSpecialtyStart DateEnd Date Vitaliy Brower DO [address] [place] [address] PCP - GeneralInternal Medicine01/05/23 Melinda Verduzco, ASSEMBLY MACHINE FEEDER.ENTRY LEVEL ELECTRICAL ENGINEER [address] [place] [id number] ReferringOrthopecentinela [facility]11/24/22 Team Status: Active Member Role Status Dates Vitaliy Brower DO Primary Care Provider Active Start: October 23, 2024 Sarai Mendez II, MDAttending ProviderActiveStart: October 23, 2024 Team MemberRelationshipSpecialtyStart DateEnd Date Vitaliy Brwoer DO [address] [place] [address] PCP - GeneralInternal Medicine05/07/24Team MemberRelationshipSpecialtyStart Date End Date Vitaliy Brower DO [address] [place] [address] PCP - [facility] Medicine05/07/24Team MemberRelationshipSpecialtyStart Date End Date InocenteVitaliyDO [address] [place] [address] PCP - [facility]05/07/24 Team Status: Inactive Member Role Status Dates [...] ProviderActiveStart: December 09, 2024 End: December 12, 2024Monanci Steele MDAttending ProviderActiveStart: December 09, 2024 End: December 12, 2024 Team Status: Inactive Member Role/Relationship Status Dates Vitaliy Brower DO Primary Care Provider Active Start: December 15, 2024 End: December 15, 2024Thida Samano MDAttending ProviderActiveStart: December 15, 2024 End: December 15, 2024 Team Status: Active Member Role/Relationship Status Dates Vitaliy Brower DO Primary Care Provider Active Start: December 15, 2024 Marcela Ortiz CMAAttending ProviderActiveStart: December 15, 2024 Team Status: Active Member Role/Relationship Status Dates Vitaliy Brower DO Primary Care Provider Active Start: 2024 SERGIO Araiza-Claritending ProviderActiveStart: 2024 Team Status: Active Member Role/Relationship Status Dates Vitaliy Brower DO Primary Care Provider Active Start: December 18, 2024 Marcela Ortiz CMAAttending ProviderActiveStart: December 18, 2024 Team Status: Inactive Member Role/Relationship Status Dates Vitaliy Brower DO Primary Care Provider Active Start: December 26, 2024 End: December 26enrigoberto Brower DOAttending ProviderActiveStart: December 26, 2024 End: December 26, 2024 Team Status: Inactive Member Role/Relationship Status Dates Vitaliy Brower DO Primary Care Provider Active Start: December 29, 2024 End: December 29ida Samano MDAttending ProviderActiveStart: December 29, 2024 End: December 29, 2024 Team Status: Active Member Role/Relationship Status Dates Vitaliy Brower DO Primary Care Provider Active Start: December 29, 2024 Jonathan Samano MDAttending ProviderActiveStart: December 29, 2024 Team Status: Inactive Member Role/Relationship Status Dates Vitaliy Brower DO Primary Care Provider Active Start: January 05, 2025 End: January 05ida Samano MDAttending ProviderActiveStart: January 05, 2025 End: January 05, 2025 Team Status: Inactive Member Role/Relationship Status Dates Vitaliy Brower DO Primary Care Provider Active Start: January 07, 2025 End: January 07, 2025Sarai Mendez II MDAttending ProviderActiveStart: January 07, 2025 End: January 07, 2025 Team Status: Inactive Member Role/Relationship Status Dates Vitaliy Brower DO Primary Care Provider Active Start: January 07, 2025 End: January 07, 2025Sarai Mendez II MDAttending ProviderActiveStart: January 07, 2025 End: January 07, 2025 Team Status: Inactive Member Role/Relationship Status Dates Vitaliy Brower DO Primary Care Provider Active Start: January 12, 2025 End: January 12ana Brower DOAttending ProviderActiveStart: January 12, 2025 End: January 12, 2025 Team Status: Inactive Member Role/Relationship Status Dates Vitaliy Brower DO Primary Care Provider Active Start: January 27, 2025 End: January 27omas Rosa Samano ProviderActiveStart: January 27, 2025 End: January 27, 2025 Team Status: Inactive Member Role/Relationship Status Dates Vitaliy Brower DO Primary Care Provider Active Start: January 29, 2025 End: January 29omas YONAS Samanottending ProviderActiveStart: January 29, 2025 End: January 29, 2025 Team Status: Inactive Member Role/Relationship Status Dates Vitaliy Brower DO Primary Care Provider Active Start: January 29, 2025 End: January 30, 2025PaAlmita Rosales ProviderActiveStart: January 29, 2025 End: January 30, 2025Team MemberRelationshipSpecialtyStart DateEnd Date Vitaliy Brower DO [address] [place] [address] [facility] - [facility]/07/24 Team Status: Inactive Member Role/Relationship Status Dates Vitaliy Brower DO Primary Care Provider Active Start: February 02, 2025 End: February 02enZain Ramirez ProviderActiveStart: February 02, 2025 End: February 02, 2025 Team Status: Inactive Member Role/Relationship Status Dates Vitaliy Brower DO Primary Care Provider Active Start: February 17, 2025 End: February 17enZain Ramirez ProviderActiveStart: February 17, 2025 End: February 17, 2025 Team Status: Inactive Member Role/Relationship Status Dates Vitaliy Brower DO Primary Care Provider Active Start: February 17, 2025 End: February 17, 2025GeAlmita Saldana ProviderActiveStart: February 17, 2025 End: February 17, 2025 Goals (unrecognized section and content) Goals [...] section and content) DATE CREATED AUTHOR 08/05/2022 [facility] DATE CREATED AUTHOR AUTHOR'S ORGANIZ ATION 06/13/2023 [facility] DATE CREATED AUTHOR AUTHOR'S ORGANIZ ATION 06/29/2023 [facility] DATE CREATED AUTHOR AUTHOR'S ORGANIZ ATION 09/20/2023 [facility] DATE CREATED AUTHOR AUTHOR'S ORGANIZ ATION 08/25/2024 [facility] DATE CREATED AUTHOR AUTHOR'S ORGANIZ ATION 09/29/2024 [facility] DATE CREATED AUTHOR AUTHOR'S ORGANIZ ATION 12/23/2024 [facility] DATE CREATED AUTHOR AUTHOR'S ORGANIZ ATION 02/01/2025 [facility] DATE CREATED AUTHOR AUTHOR'S ORGANIZ ATION 02/04/2025 [facility] DATE CREATED AUTHOR AUTHOR'S ORGANIZ ATION 02/16/2025 [facility] DATE CREATED AUTHOR AUTHOR'S ORGANIZ ATION 02/19/2025 [facility] Scheduled Active and Recently Administ ered Medications (unrecognized section and content) Medication Order/ aspirin chewable tablet 324 mg (COMPLETED) 324 mg, oral, Once, On Sun01/29/24 at 1000, For 1 dose, Preprocedure * 1004 (Given - Provider: Telma Steward RN) aspirin EC tablet 81 [...] 1240 (New Bag - Provider: Narinder Castillo, RN) * 1307 (Stopped - Provider: Louie Parra, [...] Sun01/29/24 at 0922, For 1 dose * 0929 (Given - Provider: Juana Jin RT) pantoprazole (ProtoNix) EC tablet 40 mg(Linked [...] with 10 mL of Normal Saline. Medication Order/ acetaminophen (Tylenol) oral liquid 650 mg(Linked Group [...] - Provider: Jesus Meza RN - Comment: R groin) [...] BE BASED ON THE PRIMARY CLINICAL RECORDS. [employer] [facility]. provides no warranty or guarantee of the accuracy or completeness of information in this document.
== END 2025-03-03 10:41 | disposition home or self-care (01) ==
LOC: WC 10:40
PROVIDERS: PCP Internal Medicine; Visit Provider Physician Assistant
DX: I87.312 Chronic venous hypertension (idiopathic) with ulcer of left lower extremity (principal); L97.822 Non-pressure chronic ulcer of other part of left lower leg with fat layer exposed
CPT/HCPCS: G0463

== ENCOUNTER 2025-04-06 19:57 | Emergency (ER) | payer MEDICARE, OTHER, SELFPAY ==
--- OUTSIDE RECORDS SUMMARY | 2025-03-25 10:00 | XMS_ITS | Encounter Summary ---
Author Organization [facility] Address [address], [address] [place] [address] Care Team Providers Care J2Ee Consultant Name Role Phone Nitesh Garcia PA-C Primary Care Provider [phone] Reason for Visit * ReasonCommentsBack PainPatient presents today for a Follow up to review Imaging of Lumbar spine Patient reports his pain is all on the right side. Encounter Details DateTypeDepartmentCare Team (Latest Contact Info)Yoccnxzpjvb03/17/2025 10:00 AM ESTOffice Visit [facility] [address] [place] [address] [place] [id number] Austen Patel MD [address] [place] [address] [place] [address] Spinal stenosis of lumbar region with neurogenic claudication (Primary Dx); Spondylolisthesis of lumbar region Social History Tobacco UseTypesPacks/DayYears UsedDateSmoking Tobacco: NeverSmokeless Tobacco: Never Tobacco Cessation:Counseling Given: Not Answered Alcohol UseStandard Drinks/WeekCommentsYes0 (1 standard drink = 0.6 oz pure alcohol)35 (1 standard drink = 0.6 oz pure alcohol)Sex and Gender Information ValueDate RecordedSex Assigned at BirthNot on fileLegal JopEokz5905/19/2012 7:11 PM ESTGender IdentityNot on fileSexual OrientationNot on filedocumented as of this encounter Last Filed Vital Signs Vital SignReadingTime TakenCommentsBlood Pressure--Pulse--Temperature-- Respiratory Lfin914205/26/2024 9:47 AM ESTOxygen Saturation--Inhaled Oxygen Concentration--Jwoaen181.2 kg (221 lb)03/25/2025 9:47 AM SZLHshgkg055.8 cm (5' 10 )03/25/2025 9:47 AM ESTBody Mass Index31.7103/25/2025 9:47 AM ESTdocumented in this encounter Patient Instructions * Patient Instructions* Donna Sam MA - 03/25/2025 9:35 AM EST We're looking forward to seeing you at your upcoming appointment Now you can save time and skip the clipboard! Pre-Registration lets you complete your appointment paperwork and pay your copay directly from your MyChart. Then, when you arrive for your appointment, [...] not hesitate to reach out to us. [facility] [address] documented in this encounter Progress Notes * Austen Patel MD - 03/25/2025 10:01 AM EST NEUROSURGERY and SPINE FOLLOW-UP NOTE Patient Name: César Steven Patient : 1960 PCP: Nitesh Garcia PA-C History of Present Ilness: 64 y.o. presents with f/u. He saw Dr. Mendez who did not recommend injection. No LBP, having severe RLE pain and weakness down to knee, no LLE sx. a lot of his pain is around the right knee and just above. Having difficulty walking. On ASA, for CAD s/p CABG. Sx for 3 months. He had lumbar decompression 20 years ago. Chief Complaint Patient presents with Back Pain Patient presents today for a Follow up to review Imaging of Lumbar spine Patient reports his pain is all on the right side. Conservative Treatments: Physical Therapy: No NSAID's: Yes Narcotics: No Muscle relaxants: No Epidural injections: Yes Past Medical History: No past medical history on file. Past Surgical History: No past surgical history on file. Home Medications: Prior to Admission medications Medication Sig Start Date End Date Taking? Authorizing Provider atorvastatin (LIPITOR) 80 MG tablet Take 1 tablet by mouth daily Every evening 09/29/24 Kamron Ruiz MD dapagliflozin (FARXIGA) 5 MG tablet Take 1 tablet by mouth every morning 02/15/25 Kamron Ruiz MD escitalopram (LEXAPRO) 20 MG tablet Take 1 tablet by mouth daily Kamron Ruiz MD HYDROcodone-acetaminophen (NORCO) 5-325 MG per tablet Take 1 tablet by mouth every 6 hours as needed for Pain. 12/17/24 Kamron Ruiz MD metoprolol succinate (TOPROL XL) 50 MG extended release tablet Take 1 tablet by mouth daily 01/03/25Kamron Ruiz MD pantoprazole (PROTONIX) 40 MG tablet Take 1 tablet by mouth daily 01/03/25 Kamron Ruiz MD spironolactone (ALDACTONE) 25 MG tablet Take 1 tablet by mouth daily 10/01/24 Kamron Ruiz MD valACYclovir (VALTREX) 500 MG tablet Take 1 tablet by mouth daily 10/02/24 Kamron uRiz MD tiZANidine (ZANAFLEX) 2 MG tablet Take 1 tablet by mouth 2 times daily as needed (pain) 03/17/25 03/27/25 Sintia Barksdale APRN - CNP gabapentin (NEURONTIN) 400 MG capsule Take 1 capsule by mouth 3 times daily for 30 days. 03/12/25 04/11/25 Sintia Barksdale APRN - CNP allopurinol (ZYLOPRIM) 100 MG tablet Take 2 tablets by mouth 07/07/24 Kamron Ruiz MD ALPRAZolam (XANAX) 0.5 MG tablet 1 tablet. Kamron Ruiz MD aspirin 81 MG EC tablet Take 1 tablet by mouth daily Kamron Ruiz MD celecoxib (CELEBREX) 200 MG capsule Take 1 capsule by mouth 2 times daily 09/13/24 Kamron Ruiz MD dofetilide (TIKOSYN) 125 MCG capsule Take 1 capsule by mouth 12/12/24 Kamron Ruiz MD vitamin D (ERGOCALCIFEROL) 1.25 MG (82328 UT) CAPS capsule (take by mouth with food twice a week, ONE CAPSULE ON SUNDAY AND ONE ON SUNDAY) FOR A TOTAL OF 10 WEEKS. Then once a week thereafter 07/07/24 Kamron Ruiz MD levothyroxine (SYNTHROID) 200 MCG tablet Take 1 tablet by mouth daily Kamron Ruiz MD magnesium oxide (MAG-OX) 400 MG tablet 1 tablet daily Kamron Ruiz MD spironolactone-hydroCHLOROthiazide (ALDACTAZIDE) 25-25 MG per tablet Take 1 tablet by mouth every morning 04/08/24 Kamron Ruiz MD valsartan (DIOVAN) 40 MG tablet Take 1 tablet by mouth daily 11/19/24 11/19/25 Kamron Ruiz MD Allergies: Prednisone Social History: TOBACCO: reports that he has never smoked. He has never used smokeless tobacco. ETOH: reports current alcohol use. RECREATIONAL DRUG USE: Social History Substance and Sexual Activity Drug Use Never Family History: No family history on file. Physical Examination: Vitals: 03/25/25 0947 Resp: 18 Physical Exam Constitutional: Appearance: Normal [...] General: Skin is warm and dry. Neurological: Mental Status: He is alert. Coordination: Coordination normal. Deep Tendon Reflexes: Reflex Scores: Bicep reflexes are 2+ on the right side and 2+ on the left side. Patellar reflexes are 2+ on the right side and 2+ on the left side. Achilles reflexes are 2+ on the right side and 2+ on the left side. Comments: Motor 5/5 UE and LE except 4/5 RLE Sensation decreased RLE to knee DTR's 2+ biceps, achilles and patella Psychiatric: Mood and Affect: Mood normal. Speech: Speech normal. Thought Content: Thought content normal. Midline well healed lumbar incision Gait shuffling Results Labs: Last 24hrs No results found for this or any previous visit (from the past 24 hours). Radiology Personal review: Review of lumbar MRI reveals moderate to severe central stenosis L3-4 and L4-5, moderate to severe bilateral foraminal stenosis from L2-S1, there is mild to moderate stenosis L1-2 and there is evidence of clumping of nerve roots and arachnoiditis at L5-S1. Lumbar dynamic x-rays reveal grade 1 spondylolisthesis of L4 on L5 which is worse on flexion compared to extension. ASSESSMENT / PLAN : 64-year-old with history of coronary artery disease status post CABG on aspirin and history of lumbar decompression over 20 years ago. He was previously having left leg symptoms which have resolved. He is now complaining of 3-month history of pain and weakness in right lower extremity to the knee which has been severe. He recently saw pain management who did not recommend further injections. Lumbar MRI reveals multilevel moderate to severe lumbar stenosis from L2-S1 with mild to moderate appearing stenosis at L1-2 and spondylolisthesis L4 on L5. There is also evidence of arachnoiditis at L5-S1. I discussed options extensively including further conservative therapy and surgery. I did discussthe risk, benefits and alternatives of L2-S1 decompression and pedicle screw fixation/fusion using local autograft, allograft and Stealth with O-arm navigation and at this point he will think about it. He would like to have orthopedics evaluate his right knee. He does understand that arachnoiditis will not improve with surgery and that he could have knee pathology contributing to his current symptoms in right leg. He will return to see me in 4 weeks for further discussions of surgery. He would need general medical and cardiology clearance and would need to be off of aspirin for surgery. There are no diagnoses linked to this encounter. * Donna Sam MA - 03/25/2025 10:00 AM EST Patient Name: César Steven : 1960 Date: 03/18/2025 Type of Appt: Follow up Reason for appt: Review Imaging Pt last seen in office by Dr. Patel on 02/11/2025 Studies done: 03/01/2025 MRI Lumbar Spine at [facility] 03/01/2025 XR Lumbar Spine at [facility] Any Blood Thinners: [x] Yes [] No [x] Aspirin [] Eliquis [] Xarelto [] Pletal [] Plavix [] Warfarin Diabetic: [] Yes [x] No If yes, prescribed insulin: [] Yes [x] No Weight loss medications: [] Yes [x] No [] Ozempic [] Wegovy [] Trulicity [] Mounjaro Smoking : [] Yes [x] No documented in this encounter Plan of Treatment DateTypeDepartmentCare Team (Latest Contact Info)Lrjaixhqonv67/07/2026 3:45 PM ESTOffice Visit [facility] [address] [place] [phone] Sintia Barksdale, CULINARY ARTIST - DIRECTOR OF [facility] [address] [place] [id number] Return in about 4 weeks (around 04/09/2025) for review meds and reassess pain 04/29/2025 11:30 AM ESTOffice Visit [facility] department of [facility] [address] [place] [id number] Austen Patel MD [address] [place] [phone] Follow up for Lumbardocumented as of this encounter Visit Diagnoses Diagnosis Spinal stenosis of lumbar region with neurogenic claudication- Primary Spinal stenosis, lumbar region, with neurogenic claudication Spondylolisthesis of lumbar region Acquired spondylolisthesis documented in this encounter Additional Health Concerns AssessmentNoted TimeA fall risk assessment has been completed for the patient 02/12/2025 2:30 PM ESTdocumented as of this encounter Care Teams Team MemberRelationshipSpecialtyStart DateEnd Date Nitesh Garcia PA-C [address] [place] [address] [facility] [address] [place] [address] PCP - GeneralNeurological Imjtggz51/5/25documented as of this encounter
--- OUTSIDE RECORDS SUMMARY | 2025-03-27 07:25 | XMS_ITS | Continuity of Care Document ---
Author Organization [facility] Address [address] [place] [address] Phone Care Team Providers Care Buffet Attendant Name Role Phone Coleman Luz DO Primary Care Provider [phone] Jonathan Samano MD Attending Provider Mihai Mendez II, MD Attending Provider Coleman Luz DO Attending Provider [phone] Bony Farris DO Emergency Provider [phone] Will Zimmerman DO Emergency Provider [phone] Care Teams Patient Care Team Team Status: Active Member Role/Relationship Status Dates Coleman Luz DO Primary Care Provider Active Visit Care Team Team Status: Inactive Member Role/Relationship Status Dates Coleman Luz DO Primary Care Provider Active Start: December 29, 2024 End: December 29Rosa Bhardwaj ProviderActiveStart: December 29, 2024 End: December 29, 2024 Visit Care Team Team Status: Active Member Role/Relationship Status Dates Coleman Luz DO Primary Care Provider Active Start: December 29, 2024 Rosa Clemens ProviderActiveStart: December 29, 2024 Visit Care Team Team Status: Inactive Member Role/Relationship Status Dates Coleman Luz DO Primary Care Provider Active Start: January 05, 2025 End: January 05, 2025ThRosa Bhardwaj ProviderActiveStart: January 05, 2025 End: January 05, [...] January 07, 2025 End: January 07, 2025Robedwar Harmony Andrea MULLINS, MDAttending ProviderActiveStart: January 07, 2025 End: January [...] Start: January 27, 2025 End: January 27omas Feltdread MDAttending ProviderActiveStart: January 27, 2025 End: January 27, 2025 Visit Care Team Team Status: Inactive Member Role/Relationship Status Nader Luz DO Primary Care Provider Active Start: January 29, 2025 End: January 29, 2025Thomas Jazmyne MDAttending ProviderActiveStart: January 29, 2025 End: January 29, 2025 Visit Care Team Team Status: Inactive Member Role/Relationship Status Nader Luz DO Primary Care Provider Active Start: January 29, 2025 End: January 30, 2025PaCandelario Rosalescy ProviderActiveStart: January 29, 2025 End: January 30, 2025 Visit Care Team Team Status: Inactive Member Role/Relationship Status Nader Luz DO Primary Care Provider Active Start: February 02, 2025 End: February 02enrigoberto Luz DOAttending ProviderActiveStart: February 02, 2025 End: February 02, 2025 Visit Care Team Team Status: Inactive Member Role/Relationship Status Nader Luz DO Primary Care Provider Active Start: February 17, 2025 End: February 17enrigoberto Luz DOAttending ProviderActiveStart: February 17, 2025 End: February 17, 2025 Visit Care Team Team Status: Inactive Member Role/Relationship Status Nader Luz DO Primary Care Provider Active Start: February 17, 2025 End: February 17, 2025Almita Tanner ProviderActiveStart: February 17, 2025 End: February 17, 2025 Visit Care Team Team Status: Inactive Member Role/Relationship Status Dates Coleman Luz DO Primary Care Provider Active Start: March 25, 2025 End: March 25, 2025RobChris Lynn IIending ProviderActiveStart: March 25, 2025 End: March 25, 2025 Visit Care Team Team Status: Inactive Member Role/Relationship Status Dates Coleman Luz DO Primary Care Provider Active Start: March 25, 2025 End: March 25, 2025Chris Ponce IIending ProviderActiveStart: March 25, 2025 End: March 25, 2025 Visit Care Team Team Status: Inactive Member Role/Relationship Status Dates Coleman Luz DO Primary Care Provider Active Start: March 25, 2025 End: March 25, 2025RobChris Lynn IIending ProviderActiveStart: March 25, 2025 End: March 25, 2025 Patient Care Team Team Status: Inactive Member Role/Relationship Status Dates Coleman Luz DO Primary Care Provider Active Start: March 27, 2025 End: March 27, 2025RobChris Lynn IIending ProviderActiveStart: March 27, 2025 End: March 27, 2025 Chief Complaint and Reason for Visit Chief Complaint Admit Date CAUDAL EPIDURAL STEROID INJECTION /VW December 29, 2024 11:55am F/U CAUDAL EPIDURAL STEROID INJECTION Se ptember 2024 9:45am OP SP RTHA PAIN January 07, 2025 12 :22pm Z96.641 - January 07, 2025 1: 51pm leg wound January 12, 2025 2: 23pm M47.26 G89.29 M54.50 January 27, 2025 8:52pm MRI RESULTS [facility] January 29, 2025 1 0:02am back pain January 29, 2025 5 :26pm Back Issues/ER f/u-HIGH RISK January 1:53pm Bump on L Wrist February 17, 2025 3:01pm lt hand issues-sent by February 17, 2025 4:43pm OP/SP RIGHT LEG PAIN March 25, 2025 1:37pm M79.604 - Pain in right leg March 3:12pm Z96.641 March 25, 2025 3:55pm RT KNEE ASPIRATION WITH SYNOVASURE Decem 2024 11:30am Reason for Visit Admit Date Low back pain January 05, 2025 9:45am Other chronic pain January 05, 2025 9:45am Other spondylosis with radiculopathy, [facility] January 05, 2025 9:45am Greater trochanteric bursitis [...] 2025 1 0:02am Other spondylosis with radiculopathy, [facility] January 29, 2025 10:02am ASHD (arteriosclerotic heart [...] left upper extremity N ovember 2024 3:01pm History of total right hip arthroplasty March 25, 2025 1:37pm Right thigh pain March 25, 2025 1:37pm Allergies, Adverse Reactions, Alerts Allergen Type Severity Reaction Last Updated Verified Status No Known Allergies Allergy Unknown March 27, 2025 11:42amYesActive Social History Smoking Status Status Start Date [...] CHARISSA, normal RV size/function - 08/2024,DCCV: 09/2024, oughDeceer 2023 4:00pmUnknown ActiveHypercholesterolemiaAugust 2023 10:09amUnknownActiveHyperlipidemia June 20, 2021 12:05pmUnknownActiveHypothyroidAugust 2023 10:09amUnknown ActiveChronic HFrEF (heart failure with reduced ejection fraction)October 08, 2024 5:56pmUnknownActiveHistory of total right hip arthroplastyJuly 2024 12:24pmUnknownActiveAbnormal cardiovascular stress testJune 2024 4:26am UnknownActivePulsatile mass of left upper extremityNovember 2024 5:27pm UnknownActiveNonhealing ulcer of left lower legOctober 2024 8:44pmUnknown ActiveMass of right wristNovember 2024 1:17pmUnknownActivePersistent atrial fibrillationJune 2024 10:34amUnknownActiveChest wall contusion May 02, 2024 2:53pmUnknownActiveMild episode of recurrent major depressive disorderMarch 2023 9:43amUnknownActiveGanglion cyst of volar aspect of left wristNovember 2024 8:59pmUnknownActiveRight knee painOctober 2024 12:48pmUnknownActiveMacrocytosis without anemiaMarch 2024 1:15pm UnknownActiveAcute bronchitis due to other specified organismsDecember 2023 4:03pmUnknownActiveVitamin D deficiencyMarch 2024 6:49pmUnknownActive Lumbar spondylosisMarch 2023 9:43amUnknownActiveMRI: clumping of cauda equina suggestive of arachnoiditis, L1-2 severe canal stenosis, L2-3 severe c anal stenosis, L3-4 severe canal and mod B/L foraminal stenosis, L4-5 mod B/L foraminla stenosis, L5S1 mod canal and severe right foraminal stenosis - 02/2025 ASHD (arteriosclerotic heart disease)June 27, 2023 10:31pmUnknownActive PCI/stent (prior to 2014),CABG x - 2014,Stress [...] 2024 2:32pmUnknownResolvedPre-syncopeJune 2024 2:32pmUnknown ResolvedPrimary hypertensionMarch 2023 9:43amUnknownResolvedCyst in hand February 17, 2025 10:52pmUnknownResolvedElevated lactic acid levelMay 2023 7:41pmUnknownResolvedBlurred vision, bilateralJune 2024 2:32pmUnknown ResolvedChest painMay 2024 12:48pmUnknownResolved Medications Medication Status Dose Units Route Directions Qty Days Refills S tart Date Stop Date End Date Reason(s) Instructions Adherence Alprazolam 0.5 mg tablet Discontinued 0.5 MG PO Daily at bedtime 30 30 5 June 04, 2023 12:21pm December 07, 2023 4:13pmGeneralized anxiety disorder Generalized anxiety disorderEscitalopram Oxalate 10 mg tabletDiscontinued0.ROUTE .OUDCOZV053Udvxd 21st, 2024 2:06pmMarch 2023 9:36amTAKE 1 TABLET BY MOUTH EVERY DAY FOR 90 DAYSAtorvastatin 80 mg tabletDiscontinued0.ROUTE.LJBIBWM279Mbml 2023 11:53amMarch 2024 5:52amTAKE 1 TABLET BY MOUTH ONCE EVERY EVENINGSod Picosulf-Mag Ox-Citric Ac (Clenpiq) 10 mg-3.5 gram- 12 gram/175 mL saqztggtXgefmxmygcpd280RZFGAqoje lhsknou98768Edqdrr 2023 11:00pmSeptember 2023 9:38amFollow instructions given by officeAlprazolam 0.5 mg tablet Discontinued0.5MGPODaily at dhokpon14043Unltxp 2023 4:12pmMarch 2024 12:58pmGeneralized anxiety disorder Generalized anxiety disorderApixaban (Eliquis) 5 mg tabletDiscontinued0.ROUTE .RZUXQHI2861Qdqjxbnoy 11th, 2024 8:55pmNovember 2023 11:15amTAKE 1 TABLET BY MOUTH EVERY MORNING AND BEFORE BEDTIME FOR 30 DAYSMethylprednisolone (Medrol) 4 mg yfubnjMsfplxgmlsmg8RIHFGhbjw meqmr69383Jvupdizgu 12th, 2024 1:52pmNovember 2023 11:15amEscitalopram Oxalate 20 mg tabletDiscontinued0.ROUTE.STVNAZX02 1Sept2023 4:50pmMarch 2024 4:03pmTAKE 1 TABLET BY MOUTH EVERY DAYValacyclovir 500 mg tabletDiscontinued0.ROUTE.JRCLRIX679Atxaswzsl 16th, 2024 12:29pmJune 2024 6:45amTAKE 1 TABLET BY MOUTH EVERY DAYAllopurinol 100 mg tabletDiscontinued0.ROUTE.OPGTCGF443Qvceosgfo 26th, 2024 1:35pmJune 2024 3:44pmTAKE 1 TABLET BY MOUTH EVERY DAYLevothyroxine 150 mcg tabletActive0.ROUTE .UXHAUYL685Aysaqfhb 2023 9:44amTAKE 1 TABLET BY MOUTH EVERY DAYComplies with drug therapyMetoprolol Succinate 50 mg tablet extended release 24 hr Discontinued0.ROUTE.UUJJAQN060Giisvjbc 2023 9:45amSeptember 2024 7:37amTAKE 1 TABLET BY MOUTH EVERY DAYMethylprednisolone 4 mg tabletDiscontinued 4MGPOTwice yxmvx55299Qpxfpjak 2023 12:00amDecember 2023 9:17am Methylprednisolone 4 mg tabletDiscontinued0.ROUTE.WIYDKEG221Apudyjpx 2023 9:17amMay 2024 2:23pmTAKE 1 TABLET BY MOUTH TWICE A DAY FOR 30 DAYS Amoxicillin 500 mg mmgwxnuUgdvteyvmwjt2905MKREEe Jqmyrnwg65Giscqmnc 2023 12:00amMay 2024 1:39pmSBE prophylaxisBenzonatate 200 mg capsuleDiscontinued 200MGPOThree times ehgdm95300Wzclzqmi 2024 12:00amApril 2024 10:12am Escitalopram Oxalate 20 mg tabletDiscontinued0.ROUTE.JIKXRDE205Dmyzp2024 4:03pmJune 2024 3:03amTAKE 1 TABLET BY MOUTH EVERY DAYAtorvastatin 80 mg tabletDiscontinued0.ROUTE.TVJREQJ269Vwzig2024 5:52amJune 2024 3:03amTAKE 1 TABLET BY MOUTH ONCE EVERY EVENINGMeloxicam 15 mg tablet Efivssoqkers49GAARpbnvo53940Zfm 26th, 2025 11:00pmJune 2024 10:58am Doxycycline Hyclate 100 mg arzjzllEvnpdnpemqae190LQWISxdhz azwkk725Nwlq 5th, 2025 11:00pmJune 2024 3:03amValacyclovir 500 mg tabletActive0.ROUTE .ZGSKYII754Ojee2024 6:45amTAKE 1 TABLET BY MOUTH EVERY DAYComplies with drug therapyEscitalopram Oxalate 20 mg tabletActive0.ROUTE.WTYQDSB611Gtiozkngx2024 7:57pmTAKE 1 TABLET BY MOUTH EVERY DAYComplies with drug therapy Pantoprazole 40 mg tablet,delayed release (DR/EC)Active0.ROUTE.ECRSEKT394 January 03, 2025 7:36amTAKE 1 TABLET BY MOUTH EVERY DAYComplies with drug therapyMetoprolol Succinate 50 mg tablet extended release 24 hrActive0.ROUTE .SOPMJLZ864Txwtsimzv2024 7:36amTAKE 1 TABLET BY MOUTH EVERY DAYComplies with drug therapyAlprazolam 0.5 mg tabletActive0.5MGPODaily at grojamc80816 January 15, 2025 4:07pmGeneralized anxiety disorder Generalized anxiety disorderComplies with drug therapyDapagliflozin Propanediol (Farxiga) 5 mg xdmdmeGruwxe7UYPDSqtpn qbfwujl642633Wgjipeux 9th, 2025 4:18pm Complies with drug therapyPrednisone 20 mg kevudvYeilxvbsvofx39OGJR.EYIBWMS1980 March 02, 2025 12:00amDecember 2024 2:32pm20 mg: take tid w/ food x 1 days, then bid w/ food x 3 days, then qd w/ food x 3 daysDofetilide 125 mcg xrchkjpXqcfwh906NHNFDOvdlg 12 elktn434438Fqlmsbki 11th, 2025 5:19pmComplies with drug therapyOxycodone-Acetaminophen (Percocet) 5-325 mg yggvjrNskerthdskyv8SLTMI Q8H as needed for qgls6248Ykathtxo 2022October 2022 10:02amContusion of left shoulder Contusion of left shoulder, initial encounterMethylprednisolone (Medrol) 4 mg tzkcvrEjmxjqejmoao9QKCGUtlcv dailyApril 2023 11:00pmSeptember 2023 1:53pmColchicine 0.6 mg capsuleDiscontinued0.6MGPO.every other dayApril 2023 11:00pmSeptember 2023 8:21amAmoxicillin-Pot Clavulanate 875-125 mg upmawfOsdsvdhkimea3GUGYUDujba qemox0206Leo 2023 9:30amAugust 2023 1:23pmLevothyroxine (Synthroid) 25 mcg ZacrvpZhawqrhwgcbe76LXHEPDfldyBfkcpch 2016 11:00pmMarch 2021 12:26pmAtorvastatin (Lipitor) 80 mg Tablet Icmtrylghhgd08MWWQYenlc at bedtimeOct2016 11:00pmJune 2023 11:53amAspirin 81 mg Tablet,Delayed Release (Dr/Ec)Vtjdmsuhakkq57EAOQJsuob January 28, 2017 11:00pmMay 2024 2:20pmMI preventionAcetaminophen (Tylenol Arthritis Pain) 650 mg Tablet Extended LjqhzbfZimhxqkglgmw4337TOVBRdgyr dailyOctgeorgetown [facility] 2016 11:00pmNovember 2022 9:43amAlprazolam (Xanax) 0.25 mg TabletDiscontinued0.25MGPODaily at bedtimeOctgeorgetown community hospital 2016 11:00pmFebruary 2023 12:08pminsomniaLisinopril 10 mg WbzhjsWvipkzmywtqe24CHVPWfxpwOkwkmaj 2016 11:00pm[facility] 2021 12:24pmMetoprolol Succinate (Toprol Xl) 25 mg Tablet Extended Release 24 PpRaxgqefvekfh54UWFPOnxykFmraevh 2016 11:00pm June 20, 2021 12:27pmCelecoxib 200 mg odjqxkeBandagezuneh291KSLSTyttw morning June 19, 2021 11:00pm[facility] 2022 10:00amarthritisMetoprolol Succinate 50 mg tablet extended release 24 rtIhkcddcwqglq18HEQATtfmi morningU[facility] Medical Center 2021 11:00pmDeb[facility] 2023 9:45amAllopurinol 100 mg yalrtuNtwirviperqr821DS POEvery morningU[facility] Medical Center 2021 11:00pmSeptember 2023 1:35pmgout preventionValacyclovir 500 mg ojtlkgWunlrqyctfxf254HTQXPdsmz morningU[facility] 2021 11:00pmptember 2023 12:30pmcold soresTriamterene-Hydrochlorothiazid 37.5-25 mg apieiboBtvyponwvccp5BPUZETqfgb morningU[facility] 2021 11:00pm[facility] 2023 3:16pmMeniere's diseaseLevothyroxine (Synthroid) 150 mcg tablet Eiaosaezfcyb665IJNDUZlmvn [facility] 2021 11:00pmDeceverde [facility] 2023 9:44amIrbesartan 150 mg droooeVtcsieinoqyd451TOQZKgavq morningU[facility] 2021 11:00pm[facility] 2023 3:16pmhtnMethylprednisolone 4 mg pqdkioYdqkgfpvpiyr1WTXO Every morningOctober 2022 11:00pmFebruary 2023 1:35pmEscitalopram Oxalate 10 mg msrjmpRvqnhshvffnf23IHLAJuwyd at bedtimeOctober 2022 11:00pm June 28, 2023 2:07pmpainMethylprednisolone 4 mg fesvzpCharfohykcyf6HAHTRudvy August 10, 2024 11:00pmMay 2024 3:09pmValsartan 160 mg LdarxgAeskrrcsgimr974 FFTSSzbbh365Gdj 2024 11:00pmJune 2024 10:58amClopidogrel 75 mg Tablet Juslywizsqgq97RYOCEaagd74467Eoy 2024 11:00pmJune 2024 3:03amApixaban (Eliquis) 5 mg YcxjxhXjwmuknzdhzh5SSCSBjhkk bxuzg43879Asm 2024 11:00pmJune 2024 3:03amMethylprednisolone 4 mg acqyqsRjkrmttmzpyn0WFWAKqfdl dailyJune 2024 11:00pmJune 2024 9:10amSpironolacton-Hydrochlorothiaz 25-25 mg jclghwNzgclyuknubd5YFVXVVsafgJllb 2024 11:00pmJune 2024 11:06am Aspirin 81 mg sktuiuIevkwo14YWXPNrfwwHgpw 2024 11:00pmComplies with drug therapyValsartan 160 mg EqsfboOwvpehnzvuti30KNWHExskqQunt 2024 11:00pmJun2024 9:12amAtorvastatin 80 mg WkrvqsTgfsiz79CJRJBfrne uocxisr763039Gpdq 2024 11:00pmComplies with drug therapyIsosorbide Mononitrate 30 mg Tablet Extended Release 24 IjQankeigefnps21VORPFurvp npaykcx586832Prxf 2024 11:00pmOctober 2024 12:33pmMagnesium Oxide 400 mg (241.3 mg magnesium) SoeiowIedfif321PADQPyvov031237Gbid 2024 11:00pmComplies with drug therapy Nitroglycerin 0.4 mg Tablet, SublingualDiscontinued0.7ZVYELFISSKCNM9L as needed for Chest Cvlv38322Gzqo 2024 11:00pmOctober 2024 1:00pmValsartan 40 mg KuhqhwSpjlooubwzat43LQECJfoto145226Hszr 2024 11:00pmJuly 2024 1:05pmAllopurinol 100 mg vrlnysSaqvhx368CTBWQvmcqOiaa 2024 11:00pmComplies with drug therapySpironolactone 25 mg UqqupfZsungi82.8FBBSRhorw789479Gtrf 2024 11:00pmComplies with drug therapyDapagliflozin Propanediol 10 mg Tablet Jhigvtwqqemn38IFCVVabie910189Bulz 2024 11:00pmJuly 2024 1:00pm Escitalopram Oxalate 20 mg fykkpbIrshnloddwrj51JUWKNddeu at bedtimeSeptember 2024 11:00pmSeptember 2024 7:57pmApixaban (Eliquis) 5 mg tablet Udchiinocdgt8RJYSJlsku dailySeptember 2024 11:00pmOctober 2024 12:32pm Dofetilide 125 mcg ZlwefjhHassxpfwjqqo014CDXRNEezsm 12 dtpiw145721Byjrohyke 2024 11:00pmOctober 2024 2:04pmAlbuterol Sulfate 90 mcg/actuation HFA aerosol kviletwKalswobicgpa3KUHQWVRHZRESJUCwxmf 6 hoursMarch 2023 11:00pm August 02, 2023 8:18amDiazepam 5 mg ollnjwBhhyafhugxks4JIKWLepkvAphbs 2023 11:00pmApril 2023 8:17amApixaban 5 mg uptbztYpymilfmrhck4SGGXJgcpx dailyMarch 2023 11:00pmSeptember 2023 8:55pmMupirocin 2 % ointment Pfvwfhppjyed2ITZCOIGJRRXHNGgavg dailyMarch 2023 11:00pmApril 2023 8:18amSildenafil 100 mg bfbhcwPuyykposyqtn359TTUSFyjhg as needed for sexual activityMarch 2023 11:00pmMay 2024 1:41pmEscitalopram Oxalate 20 mg eipvjoWtrykfflwkau66TWBRVsplu79393Gzcth 2023 9:35amSeptember 2023 4:50pmDoxycycline Hyclate 100 mg swfayhoZgiunmbboamn639LQKSTkkzf March 17, 2024 12:00amJanuary 2024 2:47pmCodeine-Guaifenesin 10-100 mg/5 mL shznslYtffhzsaqcbc39WRMWOkgrl 6 hours as needed for vysst30871Qujfckbn 2023 12:00amApril 2024 10:12amCough Cough, unspecifiedMeloxicam 15 mg oxybxmRyzfbrrbxznl77KWDPfwuae36975Jslyc 2024 11:00pmJune 2024 3:03amDiclofenac Sodium 1 % mkwBstnyeitpabs6RE TOPICAL.4-5 times a day as needed for knee ynxv8397Nsisb 2024 11:00pmJune 2024 3:03amGabapentin 400 mg capsuleActiveMGPODecember 2024 12:00am Complies with drug therapyAlprazolam 0.5 mg tabletDiscontinued0.5MGPODaily at bedtimeFebruary 2023 12:00amFebruary 2023 12:22pmCelecoxib 200 mg dobloiaMalgygmfqcnt051LLDNXfmbgJhlhu 2023 11:00pmMarch 2023 3:15pm Clopidogrel 75 mg tabletDiscontinuedMGPONovember 2023 12:00amApril 2024 10:12amDoxycycline Hyclate 100 mg hyxrpxcXulnalttlqxv724SFYOTdxzm zpovz849 May 02, 2024 2:47pmApril 2024 10:12amAlprazolam 0.5 mg tablet Discontinued0.5MGPODaily at vwbohro30596Wdjhu 2024 12:57pmOctober 2024 4:08pmGeneralized anxiety disorder Generalized anxiety disorderOmeprazole 40 mg capsule,delayed release(DR/EC) Qnagoqvpcpkj37YFXMGqotg70319Ooefq 2024 11:00pmMarch 2024 3:31pm Pantoprazole 40 mg tablet,delayed release (DR/EC)Ljcjchelpvrr50YJGLDujfm88043 June 30, 2024 11:00pmSeptember 2024 7:37amAmoxicillin-Pot Clavulanate 875-125 mg udgvroAysoxxqtuhym0KIIJRUuvpr 12 rbxcy70677Rnesu 2024 11:00pm August 11, 2024 1:39pmMethylprednisolone (Medrol) 8 mg auhayyDhgphlnczhod5UAEI DailyJuly 2024 11:00pmOctober 2024 1:27pmColchicine 0.6 mg capsule Discontinued0.6MGPODailyJuly 2024 11:00pmJuly 2024 1:42pmDoxycycline Hyclate 100 mg ckolsikDqfrrywnrlgz473ZYHHYksuc njhlc42932Tolyempyt 18th, 2025 11:00pmOctober 2024 12:32pmMupirocin 2 % ysmpgummEnnnvhacscvp3KHOHTSPGOPGTZ Twice iijku69302Uqwmryhne 18th, 2025 11:00pmOctober 2024 12:33pmDofetilide 125 mcg vwrugqjKrexgsojtpho096BUPUIOerit 12 ydfpt786126Enxtbtd 6th, 2025 2:03pm March 19, 2025 5:19pmDoxycycline Hyclate 100 mg xilsujsQwysnqxphfqq719ZWVO Twice uaiyw25731Nvujcwy 5th, 2025 11:00pmOctober 2024 12:59pmSemaglutide (Ozempic) 0.25 mg or 0.5 mg (2 mg/3 mL) pen rphximwxRxwzsfjwodao6PHSPLMqbzqc pqsd3440Xxvnkod2024 11:00pmOctober 2024 11:50amsubcutaneously every week; 0.25mg SC weekly x 4 then increase to 0.5mg SC weeklySemaglutide (Ozempic) 0.25 mg or 0.5 mg (2 mg/3 mL) pen ulfbhpseMmllbozvxmat1OJHVUOzkvns ccgx4960 January 14, 2025 11:50amOctober 2024 8:00amsubcutaneously every week; 0.25mg SC weekly x 4 then increase to 0.5mg SC weeklyDapagliflozin Propanediol (Farxiga) 5 mg nyzqutWhhbttdkhiat2IXSWVrkzo iiqgmml12931Jtsfyfe 2024 11:00pmNovember 2024 4:19pmCelecoxib (Celebrex) 200 mg msvyngqXelgeq285TKLN DailyNov2024 12:00amComplies with drug therapy Immunizations Immunization Event Date Not Given Reason Dose Number 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 Lot Number Reason(s) Given Vaccine Information Statement (VIS) Detail Administration Location COVID-19 mRNA, ComirnatFriendsignia (Iptivia) June 04, 2020 COVID-19 mRNA, Comirnaty (Iptivia)June 15OVI mRNA, ComirnatFriendsignia (Iptivia)April 11OVI mRNA, Juesheng.comirnaty (Iptivia)June 25Tap, unspecifiedFebruary 2020Influenza, trivalentOctober 2020Influenza Quadrivalent MDCK with preservativeOctober 2017influenza, unspecified formulationOctober 2017influenza, unspecified formulationSeptember 2018influenza, unspecified formulationOctober 2019influenza, unspecified formulationOctober 2020Quadrivalent InfluenzaOctober 2021 Quadrivalent InfluenzaDecember 2022 Medical Equipment Device Date Implanted Device Details Acetabular shell July 04, 2021 CARL: [id number] Issuing Agency: [facility] Device Id: [id number] Expiration Date: 2030-07-30 Lot Number: [id number] femoral head prosthesisMarch 2021UDI: [id number] Issuing Agency: [facility] Device Id: [id number] Expiration Date: 2031-03-09 Lot Number: [id number] hip femur prosthesis, modularMarch 2021UDI: ()[id number] Issuing Agency: [facility] Device Id: [id number] Expiration Date: 2025-12-20 Lot Number: [id number] polyethylene acetabular linerMarch 2021 CARL: [id number] Issuing Agency: [facility] Device Id: [id number] Expiration Date: 2026-05-04 Lot Number: [id number] shellNovember 2022UDI: ()[id number] Issuing Agency: [facility] Device Id: [id number] Expiration Date: 2032-04-30 Lot Number: [id number] femoral head prosthesisNovember 2022UDI: ()[id number] Issuing Agency: [facility] Device Id: [id number] Expiration Date: 2032-07-27 Lot Number: [id number] hip femur prosthesis, modularNovember 2022UDI: ()[id number] Issuing Agency: [facility] Device Id: [id number] Expiration Date: 2027-07-26 Lot Number: [id number] polyethylene acetabular linerNovember 2022UDI: ()[id number] Issuing Agency: [facility] Device Id: [id number] Expiration Date: 2027-08-28 Lot Number: [id number] Procedures Procedure Date Performed Status US arterial duplex UE LT February 17, 2025 5:3 0pm completed MR lumbar spine wo/w con January 27, 2025 8:08 pm completed XR pre/post mri xray January 27, 2025 9:13pm c ompleted XR hip RT min 2V(w/wo pelvis)* January 07, 2025 12:51pm completed XR knee RT 3V - NOT FOR ER USE January 07, 2025 12:51pm completed XR femur RT 2V* March 25, 2025 3:12pm compl eted XR knee RT 3V - NOT FOR ER USE March 25 3:12pm completed MR lumbar spine wo/w con January 05, 2025 9: 18am completed Relevant Diagnostic Tests and/or Laboratory Data Laboratory Results Test Collection Date/Time Result Date/Time Result Interpretation Reference Range Result Comment Performing Site Corrected White Blood Count January 29, 2025 6:40pm January 29, 2025 6:54pm 7.7 10*3/[facility]L [facility] [id number] [address] [facility] [address]Evuhpfygp White Blood CountNovember 2024 6:53pmNovember 2024 7:08pm8.3 10*3/uL4.1-10.[address] [place] [address] Ctr [id number] [address] [facility] [address]Ixsjbqehw White Blood CountDecember 2024 4:00pmDecember 2024 4:48pm7.7 10*3/uL4.1-10.5[facility] [id number] [address] [facility] [address]Jqjlewvbxpm WBC CountOctober 2024 6:40pmOctober 2024 6:54pm7.7 10*3/uL4.1-10.5FL[facility] [id number] [address] [facility] [address]Rmizjdvukml WBC CountNovember 2024 6:53pmNovember 2024 7:08pm8.3 10*3/uL4.1-10.[address] [place] [address] Ctr [id number] [address] [facility] [address]Rjznmksheip WBC CountDecember 2024 4:00pmDecember 2024 4:48pm7.7 10*3/uL4.1-10.[address] [place] [address] Ctr [id number] [address] [facility] [address]Fgy Blood CountOctober 2024 6:40pmOctober 2024 6:54pm4.18 10*6/uL3.90-5.60[facility] [id number] [address] [facility] [address]Uiz Blood CountNovember 2024 6:53pmNovember 2024 7:08pm4.07 10*6/uL3.90-5.60[facility] [id number] [address] [facility] [id number] Blood CountDecember 2024 4:00pmDecember 2024 4:48pm4.63 10*6/uL3.90-5.60[facility] [id number] [address] [facility] [id number] 2024 6:40pmOctober 2024 6:54pm 15.4 g/dL13.0-17.0[facility] [id number] [address] [place] [id number] 2024 6:53pmNovember 2024 7:08pm 14.9 g/dL13.0-17.0[facility] [id number] [address] [facility] [id number] 2024 4:00pmDecember 2024 4:48pm 16.6 g/dL13.0-17.0[facility] [id number] [address] [place] [address] [address]MyvmtikculKmspgqv 2024 6:40pmOctober 2024 6:54pm 43.6 %38.8-50.0[facility] [id number] [address] [place] [address] 75401SqreqtaaqfVjdfwuur 2024 6:53pmNovember 2024 7:08pm 43.3 %38.8-50.0[facility] [id number] [address] [place] [address] 02344PghppuenknXbmxyddz 2024 4:00pmDecember 2024 4:48pm 48.7 %38.8-50.0[facility] [id number] [address] [facility] 86766Zvew Corpuscular VolumeOctober 2024 6:40pmOctober 2024 6:93gl824.3 fLAbove high wffegu14.5-101[facility] [id number] [address] [facility] 96447Jxua Corpuscular VolumeNovember 2024 6:53pmNovember 2024 7:34fp418.5 fLAbove high mgifmu54.5-101[facility] [id number] [address] [facility] 71115Qtcc Corpuscular VolumeDecember 2024 4:00pmDecember 2024 4:73tb392.3 fLAbove high zrxrvy78.5-101[facility] [id number] [address] [place] [address] 30831Etbo Corpuscular HemoglobinOctober 2024 6:40pmOctober 2024 6:54pm36.7 pgAbove high quyxii82.5-35.2[facility] [id number] [address] [place] [address] 14283Pnwj Corpuscular HemoglobinNovember 2024 6:53pmNovember 2024 7:08pm36.6 pgAbove high corwbl23.5-35.2[facility] [id number] [address] [place] [address] 71096Pkpv Corpuscular HemoglobinDecember 2024 4:00pmDecember 2024 4:48pm35.8 pgAbove high etkmce18.5-35.2[facility] [id number] [address] [place] [address] 11172Exas Corpuscular Hemoglobin ConcentOctober 2024 6:40pm January 29, 2025 6:54pm35.2 g/dL32.5-35.6[facility] [id number] [address] [place] [address] 31723Bdvh Corpuscular Hemoglobin ConcentNovember 2024 6:53pm February 17, 2025 7:08pm34.4 g/dL32.5-35.6[facility] [id number] [address] [facility] 34065Qetz Corpuscular Hemoglobin ConcentDecember 2024 4:00pm March 25, 2025 4:48pm34.0 g/dL32.5-35.6[facility] [id number] [address] [facility] 98582Mho Cell Distribution WidthOctober 2024 6:40pmOctober 2024 6:54pm15.4 %Above high nkwyej98.0-14.8[facility] [id number] [address] [facility] 43983Pil Cell Distribution WidthNovember 2024 6:53pmNovember 2024 7:08pm15.3 %Above high bpnynf54.0-14.8[facility] [id number] [address] [facility] 12980Cbs Cell Distribution WidthDecember 2024 4:00pmDecember 2024 4:48pm14.0 %12.0-14.8[facility] [id number] [address] [facility] 63434Spsivtqp CountOctober 2024 6:40pmOctober 2024 6:12wa089 10*3/uLBelow low rogbjn538-770GgzlmwvyxOhiohealth O'Bleness Hospital [facility] [id number] [address] [facility] 95793Oycmnwok CountNovember 2024 6:53pmNovember 2024 7:19hd744 10*3/dF482-922NhbhegekfOhiohealth O'Bleness Hospital [facility] [id number] [address] [place] [address] 43657Ldxttfgy CountDecember 2024 4:00pmDecember 2024 4:68yr427 10*3/sI203-583FbqtsmljrOhiohealth O'Bleness Hospital [facility] [id number] [address] [facility] 91653Lfyp Platelet VolumeOctober 2024 6:40pmOctober 2024 6:54pm8.9 fL6.6-10.1[facility] [id number] [address] [facility] 03487Rcgo Platelet VolumeNovember 2024 6:53pmNovember 2024 7:08pm8.8 fL6.6-10.1[facility] [id number] [address] [facility] 86106Puez Platelet VolumeDece2024 4:00pmDecember 2024 4:48pm8.9 fL6.6-10.1[facility] [id number] [address] [facility] 00193Undladds Distribution WidthOctober 2024 6:40pmOctober 2024 6:54pm18.81 %0.00-20.00[facility] [id number] [address] [facility] 84740Ydedeojq Distribution WidthNovember 2024 6:53pmNovember 2024 7:08pm18.76 %0.00-20.00[facility] [id number] [address] [facility] 64546Bbdofrfdzia (%) (Auto)January 29, 2025 6:40pmOctober 2024 6:54pm78.3 %.[facility] [id number] [address] [facility] 75997Akxzmtpoxvf (%) (Auto)February 17, 2025 6:53pmNovember 2024 7:08pm76.3 %.[facility] [id number] [address] [facility] 92627Jzpmftawmhp (%) (Auto)March 25, 2025 4:00pmDece2024 4:48pm61.0 %.[facility] [id number] [address] [facility] 22431Rjeqttbcjfr (%) (Auto)January 29, 2025 6:40pmOctober 2024 6:54pm14.4 %.[facility] [id number] [address] [facility] [place] [address]Scpuumgnixp (%) (Auto)February 17, 2025 6:53pmNovember 2024 7:08pm14.4 %.[facility] [id number] [address] [facility] 03130Gcsmauekaii (%) (Auto)March 25, 2025 4:00pmDecemb2024 4:48pm23.1 %.[facility] [id number] [address] [facility] [place] [address]Ysxrwrpqo (%) (Auto)January 29, 2025 6:40pmOctober 2024 6:54pm6.3 %.[facility] [id number] [address] [facility] [place] [address]Eceydvyhk (%) (Auto)February 17, 2025 6:53pmNovember 2024 7:08pm7.5 %.[facility] [id number] [address] [facility] [place] [address]Lqoahairj (%) (Auto)March 25, 2025 4:00pmDecemb2024 4:48pm9.8 %.[facility] [id number] [address] [facility] [place] [address]Brebwkpeoik (%) (Auto)January 29, 2025 6:40pmOctober 2024 6:54pm0.3 %.[facility] [id number] [address] [facility] [place] [address]Egbzvrvskqf (%) (Auto)February 17, 2025 6:53pmNovember 2024 7:08pm0.5 %.[facility] [id number] [address] [facility] [place] [address]Pupkcayygks (%) (Auto)March 25, 2025 4:00pmDecember 2024 4:48pm5.2 %.[facility] [id number] [address] [facility] [place] [address]Ctpmwlhnx (%) (Auto)January 29, 2025 6:40pmOctober 2024 6:54pm0.7 %.[facility] [id number] [address] [facility] [place] [address]Zdubighqw (%) (Auto)February 17, 2025 6:53pmNovember 2024 7:08pm1.3 %.[facility] [id number] [address] [facility] 74835Dqpuvepji (%) (Auto)March 25, 2025 4:00pmDe2024 4:48pm0.9 %.[facility] [id number] [address] [facility] 32662Qthrmxogi RBC Relative Count (auto)January 29, 2025 6:40pm January 29, 2025 6:54pm0.1 /100{WBC}0-0.5[facility] [id number] [address] [facility] 17074Lgpkdxlbn RBC Relative Count (auto)February 17, 2025 6:53pm February 17, 2025 7:08pm0.1 /100{WBC}0-0.5[facility] [id number] [address] [facility] 66280Mpgibfand RBC Relative Count (auto)March 25, 2025 4:00pm March 25, 2025 4:48pm0.0 /100{WBC}0-0.5[facility] [id number] [address] [facility] 38184Papypygroww # (Auto)January 29, 2025 6:40pmOctober 2024 6:54pm6.0 10*3/uL1.8-7.7[facility] [id number] [address] [facility] 60954Tdqgnvrzqvq # (Auto)February 17, 2025 6:53pmNov2024 7:08pm6.4 10*3/uL1.8-7.7[facility] [id number] [address] [facility] 69338Zbwlovsfojp # (Auto)March 25, 2025 4:00pmDe2024 4:48pm4.7 10*3/uL1.8-7.7[facility] [id number] [address] [facility] 79204Hmwdubmbbpb # (Auto)January 29, 2025 6:40pmOctober 2024 6:54pm1.1 10*3/uL1.00-4.8[facility] [id number] [address] [facility] 69738Fvcleribhtx # (Auto)February 17, 2025 6:53pmNovember 2024 7:08pm1.2 10*3/uL1.00-4.8[facility] [id number] [address] [place] 8388670Lymphocytes # (Auto)March 25, 2025 4:00pmDecemb2024 4:48pm1.8 10*3/uL1.00-4.8[facility] [id number] [address] [facility] 28232Rasmndaxp # (Auto)January 29, 2025 6:40pmOctober 2024 6:54pm0.5 10*3/uL0.0-0.8[facility] [id number] [address] [facility] 13537Xapxaznpj # (Auto)February 17, 2025 6:53pmNovember 2024 7:08pm0.6 10*3/uL0.0-0.8[facility] [id number] [address] [facility] 64417Nebntschw # (Auto)March 25, 2025 4:00pmDece2024 4:48pm0.8 10*3/uL0.0-0.8[facility] [id number] [address] [facility] 18467Ihavdftvkzq # (Auto)January 29, 2025 6:40pmOctober 2024 6:54pm0.0 10*3/uL0.0-0.45[facility] [id number] [address] [facility] 58749Hymtqyusojq # (Auto)February 17, 2025 6:53pmNovember 2024 7:08pm0.0 10*3/uL0.0-0.45[facility] [id number] [address] [facility] 68537Soatryshkkb # (Auto)March 25, 2025 4:00pmDecemb2024 4:48pm0.4 10*3/uL0.0-0.45[facility] [id number] [address] [facility] 39772Pxwvwitgw # (Auto)January 29, 2025 6:40pmOctober 2024 6:54pm0.1 10*3/uL0.0-0.2[facility] [id number] [address] [facility] 98956Oaklrfpic # (Auto)February 17, 2025 6:53pmNov2024 7:08pm0.1 10*3/uL0.0-0.2[facility] [id number] [address] [facility] 89369Rpjgtjqpv # (Auto)March 25, 2025 4:00pmDecember 2024 4:48pm0.1 10*3/uL0.0-0.2[facility] [id number] [address] [facility] 88276Kzvppbdkeih Sedimentation RateDece2024 4:00pm March 25, 2025 5:57pm44 mm/hrAbove high normal0-[facility] [id number] [address] [facility] 50480Oqnuleiprtu TimeNov2024 6:53pmNov2024 7:33pm11.4 s9.0-12.9A hematocrit value greater than 55% may lead to inaccurate results in coagulation testing. Patientshaving hematocrit values >55% require a special collection tube for coagulation studies. Please contact the laboratory at [phone] for redraw instructions.[facility] [id number] [address] [facility] 76069Iyqwjtgkh Time International RatioNovember 2024 6:53pm February 17, [...] patients with mechanical heart valves: 3 - 4.5[facility] [id number] [address] [facility] 91297Twzmalzbd Partial Thromboplast TimeNov2024 6:53pm February 17, 2025 7:33pm25.5 s25.1-36.5A hematocrit value greater than 55% may lead to inaccurate results in coagulation testing. Patientshaving hematocrit values >55% require a special collection tube for coagulation studies. Please c ontact the laboratory at [phone] for redraw instructions.[facility] [id number] [address] [facility] 29215Z-Gsgdn Quantitative (PE/DVT)March 25, 2025 4:00pmDecember 2024 5:59hh286 ng/mLAbove high normal0-243The reference range for D-dimer is <243 ng/mL [...] coagulation studies. Please contact the laboratory at [phone] for redraw instructions. [facility] [id number] [address] [facility] 28843Hlerb ColorOctober 2024 4:43pmOctober 2024 5:07pm Light-yellowYellowOhiohealth O'Bleness Hospital Ctr [id number] [address] [facility] 96502Rgtyi AppearanceOctober 2024 4:43pmOctober 2024 5:07pmClearClearOhiohealth O'Bleness Hospital [facility] [id number] [address] [facility] 03768Bsmth Specific GravityOctober 2024 4:43pmOctober 2024 5:07pm1.0261.001-1.030[facility] [id number] [address] [facility] 18978Zjset pHOctober 2024 4:43pmOctober 2024 5:07pm5.0 5.0-9.0[facility] [id number] [address] [facility] 64518Ojube Leukocyte EsteraseOctober 2024 4:43pmOctober 2024 5:07pmNegativeNegativeOhiohealth O'Bleness Hospital [facility] [id number] [address] [facility] 93195Mtprc NitriteOctober 2024 4:43pmOctober 2024 5:07pm NegativeNegativeOhiohealth O'Bleness Hospital [facility] [id number] [address] [facility] 33135Ydkuf ProteinOctober 2024 4:43pmOctober 2024 5:07pm Negative mg/dLNegativeOhiohealth O'[facility] [id number] [address] [facility] 46818Moizx Glucose (UA)January 29, 2025 4:43pmOctober 2024 5:07pm>=1000 mg/dLAbove high normalNormalOhiohealth O'B[facility]ess Hospital [facility] [id number] [address] [facility] 41394Wciiv KetonesOctober 2024 4:43pmOctober 2024 5:07pm 1+Above high normalNegativeOhiohealth O'[facility] [id number] [address] [facility] 85789Szfkw UrobilinogenOctober 2024 4:43pmOctober 2024 5:07pmNormal mg/dLNormalOhiohealth O'B[facility] [id number] [address] [facility] 12372Apbeg BilirubinOctober 2024 4:43pmOctober 2024 5:07pmNegativeNegativeOhiohealth O'B[facility] [id number] [address] [facility] 03134Yvcqx Occult BloodOctober 2024 4:43pmOctober 2024 5:07pmNegativeNegativeOhiohealth O'B[facility] [id number] [address] [facility] 33669Pnrglix LevelOctober 2024 6:40pmOctober 2024 7:21pm 145 mg/dLAbove high -793IPT recommended reference rangeRandom Glucose Reference Range is dependent on time and content of last meal. Glucose of more than 200 mg/dL in a nonstressed, ambulatory subject supports the diagnosisof Diabetes Mellitus.[facility] [id number] [address] [facility] 31357Yowcqvu LevelNovember 2024 6:53pmNovember 2024 7:12ie858 mg/dLAbove high nptupu54-859XJR recommended reference rangeRandom Glucose Reference Range is dependent on time and content of last meal. Glucose of more than 200 mg/dL in a nonstressed, ambulatory subject supports the diagnosisof Diabetes Mellitus.[facility] [id number] [address] [facility] 29005Ppofc Urea NitrogenOctober 2024 6:40pmOctober 2024 7:21pm19 mg/dL7-[facility] [id number] [address] [facility] 05105Ovpbo Urea NitrogenNovember 2024 6:53pmNovember 2024 7:25pm7 mg/dL-[facility] [id number] [address] [facility] 19561DmhofwoqpsInrvdxy 2024 6:40pmOctober 2024 7:21pm 0.81 mg/dL0.70-1.30[facility] [id number] [address] [facility] 82095DbrwtueigrRzqydtth 2024 6:53pmNovember 2024 7:25pm 0.78 mg/dL0.70-1.30[facility] [id number] [address] [facility] 01269Qzwtpqazi GFR (CKD-EPI)January 29, 2025 6:40pmOctober 2024 7:21pm> 60.0 mL/MinOhiohealth O'Bleness Hospital Ctr [id number] [address] [facility] 52849Mikgkfwue GFR (CKD-EPI)February 17, 2025 6:53pmNovember 2024 7:25pm> 60.0 mL/MinOhiohealth O'Bleness Hospital [facility] [id number] [address] [facility] 03736Xelfcp LevelOctober 2024 6:40pmOctober 2024 7:21pm 136 mmol/L035-584GijyzwaqzOhiohealth O'Bleness Hospital Ctr [id number] [address] [facility] 77839Sqnyxx LevelNovember 2024 6:53pmNovember 2024 7:20vm573 mmol/B428-741IqajolfcmOhiohealth O'Bleness Hospital [facility]tr [id number] [address] [facility] 09446Xvamugdao LevelOctober 2024 6:40pmOctober 2024 7:21pm3.9 mmol/L3.5-5.1Hemolysis is present at a level that could interfere with the result.Contact lab if redraw is requiredOhiohealth O'Bleness Hospital [facility] [id number] [address] [facility] 76239Yfevjsvww LevelNovember 2024 6:53pmNovember 2024 7:25pm3.6 mmol/L3.5-5.1[facility] [id number] [address] [facility] 08997Vosuvjjp LevelOctober 2024 6:40pmOctober 2024 7:72mi924 mmol/E78-755NmeloclhhOhiohealth O'Bleness Hospital [facility] [id number] [address] [facility] 88328Kpgnigvq LevelNovember 2024 6:53pmNovember 2024 7:99di118 mmol/T88-801NhunnczukOhiohealth O'Bleness Hospital [facility]tr [id number] [address] [facility] 60530Qbbbct Dioxide LevelOctober 2024 6:40pmOctober 2024 7:21pm24.9 mmol/L21.0-31.0[facility] [id number] [address] [facility] 71525Lvcgkt Dioxide LevelNovember 2024 6:53pmNovember 2024 7:25pm26.9 mmol/L21.0-31.0[facility] [id number] [address] [facility] 30851Mgtav GapOctober 2024 6:40pmOctober 2024 7:21pm11.0 mEq/L6.0-15.0[facility] [id number] [address] [facility] 35513Vqkgp GapNovember 2024 6:53pmNovember 2024 7:25pm 11.7 mEq/L6.0-15.0[facility] [id number] [address] [facility] 27981Eaafbyj LevelOctober 2024 6:40pmOctober 2024 7:21pm 9.5 mg/dL8.6-10.3[facility] [id number] [address] [facility] 45755Iiqhatl LevelNovember 2024 6:53pmNovember 2024 7:25pm9.6 mg/dL8.6-10.3[facility] [id number] [address] [facility] 08762Bozcy ProteinNovember 2024 6:53pmNovember 2024 7:25pm6.4 g/dL6.4-8.9[facility] [id number] [address] [facility] 34818BlllygiHzqafpkc 2024 6:53pmNovember 2024 7:25pm4.2 g/dL3.5-5.7[facility] [id number] [address] [facility] 96814TrdoftluItrbryzz 2024 6:53pmNovember 2024 7:25pm2.2 g/dLOhiohealth O'Bleness Hospital [facility] [id number] [address] [facility] 75214Mqilbmi/Globulin RatioNovember 2024 6:53pmNovember 2024 7:25pm1.9[facility] [id number] [address] [facility] 45699Vgruh BilirubinNovember 2024 6:53pmNovember 2024 7:25pm1.2 mg/dLAbove high normal0.3-1.0[facility] [id number] [address] [facility] 87838Biczkjxyo Amino Transf (AST/SGOT)February 17, 2025 6:53pm February 17, 2025 7:25pm27 U/O08-39TgmzcecceOhiohealth O'Bleness Hospital [facility]tr [id number] [address] [facility] 51251Negudhy Aminotransferase (ALT/SGPT)February 17, 2025 6:53pm February 17, 2025 7:25pm29 U/L7-52[facility] [id number] [address] [facility] 40861Kdesblef PhosphataseNovember 2024 6:53pmNovember 2024 7:25pm80 U/M25-831PftynibraOhiohealth O'Bleness Hospital [facility]tr [id number] [address] [facility] 95745T-Cnpgbhms Protein, QuantitativeDecember 2024 4:00pm March 25, 2025 5:02pm6.0 mg/dLAbove high normal0.0-0.5[facility] [id number] [address] [place] [address] 39240Mnvapynu Creatinine Clearance (ChemOctober 2024 6:40pm January 29, 2025 7:98jh966.71[facility] [id number] [address] [facility] 36892Flmdhfxq Creatinine Clearance (ChemNovember 2024 6:53pm February 17, 2025 7:25pm91.15[facility] [id number] [address] [place] [address] 52541 Diagnostic Imaging Reports Author Matt Ferrell [facility] LimaAuthoredOctober 2024 4:26pmReportDictated Date/TimeDictated ByStatusRadiology ReportOctober 2024 4:26pmAllie HarveyFORT HAMIL[facility] [address] [place] [address] XRay Report Signed Patient: César Marsh MR#: [id number] : 1960 Acct:[id number] Age/Sex: 64 / M ADM Date: 5 [facility]: Type: REG CLI Attending Dr: Mihai Mendez II, MD Copies to: Mihai Mendez MD~ Ordering Provider: Mihai Mendez MD Date of Service: 01/07/25 XR/XR hip RT min 2V(w/wo pelvis)*: Z96.641 - ([id number]) XR/XR knee RT 3V - NOT FOR [...] Ferrell M.D. 01/07/2025 4:29 PM Dictation Location: [facility]20 Transcribed By: [facility] 01/07/251628 Dictated By: Matt Ferrell DO 01/07/251625 Signed By: <Electronically signed by Matt Ferrell DO in OV> 01/07/259 Author Ap Paul [facility] LimaAuthoredOctgeorgetown community hospital 2024 10:35pmReport Dictated Date/TimeDictated ByStatusRadiology ReportOctober 2024 10:35pm Ap Paul [facility] [place] [address] [place] [address] MRI Report Signed Patient: César Marsh MR#: [id number] : 1960 Acct:[id number] Age/Sex: 64 / M ADM Date: 5 Loc: MR Room: Type: REG CLI Attending Dr: Jonathan Samano MD Copies to: Jonathan Samano MD~ Ordering Provider: Jonathan Samano MD Date of Service: 01/27/25 MR/MR lumbar spine wo/w con: M47.26 ([id number]) XR/XR pre/post mri xray: M47.26,G89.29, M54.50 MRI [...] Paul M.D. 01/27/2025 11:01 PM Dictation Location: [place] [address] Transcribed By: [facility] 01/27/252300 Dictated By: Ap Paul MD 01/27/252234 Signed By: <Electronically signed by Ap Paul MD in OV> 01/27/252300 Author Tony Rock [facility] LimaAuthoredNovabrazo central campus 2024 5:06pmReport Dictated Date/TimeDictated ByStatusRadiology ReportNov2024 5:06pm Orlando [facility]Tr[facility] [place] [address] [place] [address] Ultrasound Report Signed Patient: César Marsh MR#: [id number] : 1960 Acct:[id number] Age/Sex: 64 / M ADM Date: 5 Loc: ER Room: Type: [facility] ER Attending Dr: Ordering Provider: Will Zimmerman DO Date of Service: 02/17/25 US/US arterial duplex UE LT: pulsatile mass over volar aspect of wrist Copies to: Will Zimmerman DO~ Left upper extremity arterial duplex evaluation INDICATIONS: [...] Rock MD,FACS,FSVS 02/18/2025 5:07 PM Dictation Location: [place] [address] Tech: Serena Medina Transcribed By: [facility] 02/18/251706 Dictated By: Tony Rock MD 02/18/251705 Signed By: <Electronically signed by Tony Rock MD in OV> 02/18/251706 Author Matt Ferrell [facility] LimaAuthoredDebanner payson [facility] 2024 3:42pmReport Dictated Date/TimeDictated ByStatusRadiology ReportDebanner payson medical center 2024 3:42pm Gavin HarveyompleteUniversity Hospitals [facility] [address] [place] [address] XRay Report Signed Patient: César Marsh MR#: [id number] : 1960 Acct:[id number] Age/Sex: 64 / M ADM Date: 5 Loc: [facility]: [facility] Attending Dr: Mihai Mendez II, MD Copies to: Mihai Mendez MD~ Ordering Provider: Mihai Mendez MD Date of Service: 03/25/25 XR/XR femur RT 2V*: M79.604 - Pain in right leg ([id number]) XR/XR knee RT 3V - NOT FOR ER USE: M79.604 - Pain in right leg History: Increasing pain involving the right total knee arthroplasty. Radiation to the mid shaft of the femur. 2 views right femur uncomplicated right hip arthroplasty. Adequate bony alignment without acute displaced fracture. Uncomplicated right knee arthroplasty. 3 views of the right knee. Adequate bony alignment without acute displaced fracture or joint effusion. Right knee arthroplasty without hardware complication. Unremarkable soft tissues. XR/XR femur RT 2V* IMPRESSION: Uncomplicated right knee arthroplasty. Unremarkable femur. Uncomplicated right hip arthroplasty. Impression dictated by: Matt Ferrell M.D. 03/25/2025 3:44 PM Dictation Location: [place] [address] Transcribed By: [facility] 03/25/25 1544 Dictated By: Matt Ferrell DO 03/25/25 1542 Signed By: <Electronically signed by Matt Ferrell DO in OV> 03/25/25 1544 Vital Signs Vital Reading Result Reference Range Collection Date/Time Height 70.5 [in_i] January 07, 2025 12:50zkHtbxrg511.41 kgOctober 2024 12:30pmHeart Rate61 /adv63-331Ilwmbux 2024 12:30pmBP Remkbzoa050 mm[Hg]100-140October 2024 12:30pmBP Zkwiwtvtr33 mm[Hg]60-100October 2024 12:30pmBMI (Body Mass Index)31.3 kg/p0Rcomdbg 2024 12:36azZpeucq50.5 [in_i]January 12, 2025 1:91vvCbfpgc99.74 kgOctober 2024 1:31pmHeart Rate80 /bzj88-295Lilhuhi 2024 1:31pmRespiratory rate12 /iez58-87Towydlc 2024 1:31pmBP Vycjqvso969 mm[Hg]100-140October 2024 1:31pmBP Xroxhrbgb73 mm[Hg]60-100October 2024 1:31pmBMI (Body Mass Index)30.4 kg/k6Mfnbvdc 2024 1:47owZqiobj84 [in_i]January 27, 2025 8:39shEglppl96.06 kgOctober 2024 8:34qmFqvtyv28 [in_i]January 29, 2025 4:61hkHqwdrs95.95 kgOctober 2024 4:41pmBody Ehhayjredkj77.2 [degF]97.6-99.0January 29, 2025 4:41pmHeart Rate77 /mbs11-011 January 29, 2025 9:39pmRespiratory rate20 /jyn37-94Ozuiiaj 2024 9:39pm Oxygen saturation by Pulse nufaavef20 %95-100[facility] 2024 9:39pmBP Mzpdxtui657 mm[Hg]100-140Oct2024 9:39pmBP Sidvfxxor17 mm[Hg]60-100 January 29, 2025 9:58hsAjtqlw02 [in_i]February 02, 2025 12:53ylGwfeab81.14 kg February 02, 2025 12:55pmBody Qwczvawdaed28.6 [degF]97.6-99.0[facility] 2024 12:55pmHeart Rate85 /zow32-662Oqkvjsz 2024 12:55pmOxygen saturation by Pulse srqdilos85 %95-100[facility] 2024 12:55pmBP Jvkmkbbj239 mm[Hg]100-140 February 02, 2025 12:55pmBP Ntjpvwwgf53 mm[Hg]60-100[facility] 2024 12:55pm BMI (Body Mass Index)31.0 kg/m9[place] 2024 12:45yiEtzypq48 [in_i]February 17, 2025 3:13qnJbeozr982.24 [facility] 2024 3:30pmHeart Rate84 /min 60-100[facility], [facility]19832024 3:30pmRespiratory rate14 /fae34-23Phzdlxcy 11th, 2025 3:30pmOxygen saturation by Pulse vycqamcm89 %95-100[facility] 2024 3:30pmBP Vevgfipg435 mm[Hg]100-140[facility], [facility]19832024 3:30pmBP Dwqzxjqlt75 mm[Hg]60-100 February 17, 2025 3:30pmBMI (Body Mass Index)31.7 kg/h7Shfrxgyr 2024 3:27shBlugfa8.10 [in_i]February 17, 2025 5:63duGfafbz018.00 [facility] 2024 5:18pmBody Cixhtczknot74.0 [degF]97.6-99.0Formerly [facility], 1928–19832024 5:12pmHeart Rate72 /cji73-635Wyegxclz 11th, 2025 11:00pmRespiratory rate20 /caz60-43HcjpalpyFebruary 17, 2025 11:00pmOxygen saturation by Pulse zjeekgru16 %95-100February 17, 2025 11:00pmBP Ycfheahk894 mm[Hg]100-140Nov2024 11:00pmBP Diastolic 67 mm[Hg]60-100Nov2024 11:00pmBP Cwvypawk423 mm[Hg]100-140Dece2024 11:43amBP Plvbskjyf71 mm[Hg]60-100Deceer 2024 11:43am Advance Directives Advance Directive Response Recorded Date/ Time Advance Directives No January 25, 2017 1:08pm Insurance Providers Guarantor César Marsh Address [address] [place] [address]Kuayajc Info.Home Phone: Coverage Status Update:2025 Payer Group Member ID Coverage Type Subscriber Relationship to Subscriber Effective Date Ex[place] [facility] [place] [id number] K Mccowan Id: [id number] [address] [place] [address] Home Phone: Email: [email or web address] UMU/JULIETTE [id number] A Mccowan Id: [id number] [address] [place] [address] Home Phone: C Encounters Encounter Location(s) Arrival/Admit Date Discharge/Departure Date Discharge/Departure Disposition Provider(s) Departed Physician/ Provider Office Visit -[facility] December 29, 2024 11:55am December 29, 2024 11:59pm Discharged to home care or self care (routine discharge) Jimi Clemens MD Non-patient / Non-visit -[facility] Se pt2024 1:45pm Jimi Clemens MDDeparted Physician/Provider Office Visit-[facility] BCSept2024 9:45amSept2024 10:19amDischarged to home care or self care (routine discharge)Jimi Clemens MDDeparted Physician/Provider Office Visit-Count Includes [facility] OrthopedicsOctober 2024 12:22pmOctober 2024 2:15pmDischarged to home care or self care (routine discharge)Harmony Pierce MDDeparted Clinical-XRay [place] [facility]October 2024 1:51pmOctober 2024 1:52pmDischarged to home care or self care (routine discharge)Harmony Pierce MDDeparted Physician/Provider [facility] 2:23pmOctober 2024 3:02pm Discharged to home care or self care (routine discharge)Coleman Luz DO Departed Clinical-MRI [facility] [place] 2024 8:52pmOctober 2024 8:53pmDischarged to home care or self care (routine discharge)Jimi Clemens MDDeparted Physician/Provider Office Visit-Count Includes [facility] Pain Mgmt BCOctober 2024 10:02amOctober 2024 11:08amDischarged to home care or self care (routine discharge)Jimi Clemens MDDeparted Emergency-Emergency RoomOctober 2024 5:26pmOctober 2024 12:10am Discharged/[facility] for inpatientDeparted Physician/Provider [facility] 20[facility] 1:53pmOctober 2024 2:22pmDischarged to home care or self care (routine discharge)Thaddeus Hannaharted Physician/Provider [facility] 20[facility] 3:01pmNovember 2024 4:00pmDischarged to home care or self care (routine discharge)Amanuel Hannahed Emergency-Emergency RoomNov2024 4:[facility]pmNov[facility] 2024 11:08pmDischarged to home care or self care (routine discharge)Departed Physician/Provider Office Visit-Count Includes [facility] Orthopedics March 25, 2025 1:37pmDecember 2024 3:43pmDischarged to home care or self care (routine discharge)Harmony Pierce MDDeparted Clinical-[facility]Ray [place] [facility] 3:[facility]pm[facility] 2024 3:13pmDischarged to home care or self care (routine discharge)Harmony Pierce MDDeparted Clinical-Lab [facility] 20[facility] 3:56pm Discharged to home care or self care (routine discharge)Harmony Pierce MD Departed Physician/Provider Office Visit-Count [facility]am[facility] 2024 12:23pmDischarged to home care or self care (routine discharge)Harmony Pierce MD Recent Diagnosis Onset Date Admit Date Low back pain Unknown January 05, 2025 [...] upper extremity Unknown February 17, 2025 3:01pm History of total right hip arthroplasty Unknown March 25, 2025 1:37pm Right thigh pain Unknown March 25, 2025 1:37pm Assessments Diagnosis Onset Date Resolution Status Admit Date Low back pain deletedSeptember 2024 9:45amOther chronic paindeletedSeptember 2024 9:45amOther spondylosis with radiculopathy, lumbar regiondeletedSeptember 2024 9:45amGreater trochanteric bursitis of right hipacuteOctober 2024 12:22pmHistory of total right hip arthroplastyacuteOctober 2024 12:22pmASHD (arteriosclerotic heart disease)acuteOctober 2024 2:23pmNonhealing ulcer of left lower legacuteOctober 2024 2:23pmType 2 diabetes mellitus with hyperglycemiaacuteOctober 2024 2:23pmLow back pain radiating to right leg deletedOctober 2024 2:23pmLow back paindeletedOctober 2024 10:02am Other chronic paindeletedOctober 2024 10:02amOther spondylosis with radiculopathy, lumbar regiondeletedOctober 2024 10:02amASHD (arteriosclerotic heart disease)acuteOctober 2024 1:53pmLumbosacral spondylosis with radiculopathyacuteOctober 2024 1:53pmNonhealing ulcer of left lower legacuteOctober 2024 1:53pmType 2 diabetes mellitus with hyperglycemiaacuteOctober 2024 1:53pmChronic HFrEF (heart failure with reduced ejection fraction)acuteNovember 2024 3:01pmLumbosacral spondylosis with radiculopathyacuteNovember 2024 3:01pmPulsatile mass of left upper extremityacuteNovember 2024 3:01pmHistory of total right hip arthroplasty acuteDecember 2024 1:37pmRight thigh painnoneactiveDecember 2024 1:37pm Plan of Treatment Author Jonathan Samano [facility]imaAuthoredSeptember 2024 9:47amPatients primary complaint today is severe [...] Above note written by Lexus Link MA, Food Cart Attendant. Edited and approved by Dr. Jonathan Samano MD.?? Author Coleman Luz [facility] LimaAuthoredOctober 2024 8:52pmI have instructed this patient to [...] and risk of FER Author Jonathan Samano [facility]imaAutredOct[facility] 2024 4:30pmPatient presents for follow up for [...] Above note written by Lexus Link MA, Food Cart Attendant. Edited and approved by Dr. Jonathan Samano MD.?? Author Coleman Luz [facility]imaAuthoredOctober 2024 8:18pmSteroid use, T2DM and blood thinners [...] abscess or discitis osteomyelitis. Author Coleman Luz [facility] LimaAuthoredNovember 2024 5:31pmAbrupt swelling LUE. Nontender w/o erythema, [...] scheduled test information is unavailable Pending Tests Pending diagnostic test information is unavailable Future Visits Future appointment information is unavailable Future Procedures Future procedure information is unavailable Future Medications Future medication information is unavailable Patient Instructions Instruction Admit Date Low back pain in adults January 12 2:23pm Low back pain in adults February 02 1:53pm Ganglion Cyst (DC) February 17, 2025 4:43pm
[2025-04-06] VITALS (22 sets, daily range): BP systolic 124–129; BP diastolic 80–82; PULSE 83–116; TEMP 37.6; O2SAT 85–100; BMI 29.4
--- NOTE | 2025-04-06 20:20 | ED.EXTPRO1 ---
HPI - Extremity Problem General Chief complaint: Extremity Problem, Nontraumatic Stated complaint: LE PAIN Time Seen by Provider: 04/06/25 20:04 Source: patient Mode of arrival: Wheelchair Limitations: no limitations History of Present Illness HPI Narrative: This 64-year-old male with multiple medical problems including coronary artery disease status post bypass surgery, A-fib who had a Watchman procedure as well as chronic low back pain and bilateral knee replacement surgery is brought to the emergency department by his for evaluation of multiple complaints. The patient has been having nonbloody diarrhea all day today. He denies any abdominal pain. He states he has felt chilled today but has not had a documented fever. The patient recently had a fall and had a right knee replacement surgery with Dr. Mendez at [facility]. He was seen in follow-up and everything looked okay until recently when he was seen in follow-up and something looked abnormal with the knee replacement surgery. Fluid was taken off of the knee at that time but the patient is unaware of what the findings of the fluid were. He also had blood work done at that time. His states that they called the office several times for the results of the fluid but have not heard anything back. He also recently had an injection into his lumbar spine by Dr. Chavarria. He states that this did not help his pain. He was supposed to go to [facility] for back surgery but they declined him. He denies any recent falls. He does not have any focal weakness numbness or tingling. He has not had any cough or congestion. He does not complain any specific chest pain but reminds me that he has a history of heart disease. His is also concerned because she states that he has not had any thing to eat all day. His family physician called in a prescription for Percocet for him and he took 1 and states that helped him relax somewhat but did not help his pain. Related Data Home Medications ?Medication ?Instructions ?Recorded ?Confirmed alprazolam 0.5 mg tablet 0.5 mg PO BEDTIME 09/28/24 04/06/25 aspirin 81 mg capsule 81 mg PO DAILY 09/28/24 04/06/25 escitalopram oxalate 20 mg tablet 20 mg PO DAILY 09/28/24 04/06/25 levothyroxine 150 mcg tablet 150 mcg PO DAILY 09/28/24 04/06/25 metoprolol succinate 50 mg 50 mg PO DAILY 09/28/24 04/06/25 tablet,extended release 24 hr pantoprazole 40 mg tablet,delayed 40 mg PO DAILY 09/28/24 04/06/25 release valacyclovir 500 mg tablet 500 mg PO DAILY 09/28/24 04/06/25 atorvastatin 80 mg tablet 80 mg PO QDAY 12/17/24 04/06/25 dofetilide 125 mcg capsule 125 mcg PO Q12H 12/17/24 04/06/25 gabapentin 300 mg capsule mg 04/06/25 gabapentin 400 mg capsule mg 04/06/25 oxycodone 5 mg tablet mg 04/06/25 spironolactone 25 mg tablet mg 04/06/25 valsartan 40 mg tablet mg 04/06/25 Allergies Allergy/AdvReac Type Severity Reaction Status Date / Time prednisone AdvReac Severe Unknown Verified 04/06/25 20:11 Review of Systems ROS Status of ROS 10 or more systems reviewed and unremarkable except as noted in history and below PFSH PFSH Social History Little interest or pleasure in doing things: not at all Feeling down, depressed, or hopeless: not at all Exam Narrative Exam Narrative: Vital signs and Nursing Notes reviewed: Patient's temperature is elevated 99.7, he is tachycardic with a pulse of 104 and tachypneic with a respiratory of 24, blood pressure is stable, he is not hypoxic with pulse ox of 99% on room air General: Awake, alert, oriented, nontoxic but uncomfortable appearing overweight adult male, GCS 15, no respiratory distress HEENT: Normocephalic atraumatic, mucous membranes are moist and pink, eyes are clear, normal conjunctiva, vision is grossly intact, posterior pharynx is normal in appearance. Neck: Supple, no meningeal signs, no anterior or posterior cervical lymphadenopathy Chest: Lungs are clear to auscultation with good air entry, there is no wheezing rhonchi or rales appreciated no accessory muscle use, patient is speaking in complete sentences-no chest wall tenderness to palpation CVS: Regular rate and rhythm S1-S2, no murmurs rubs or gallops, pulses are brisk and equal bilaterally ABD: Soft, nondistended, nontender, no rebound guarding or rigidity, bowel sounds are normal, no pulsatile masses appreciated Extremities: Moving all extremities, there is no redness, swelling or sign of acute joint infection to the right knee, well-healed scar, no calf swelling or tenderness noted, no effusion appreciated Skin: Normal in appearance without rash,pallor, petechiae or purpura Neuro: No focal deficits Constitutional Vital Signs, click to edit/add: Last Vital Signs Temp 99.7 F 04/06/25 20:04 Pulse 112 H 04/06/25 23:31 Resp 27 H 04/06/25 23:39 BP 124/82 04/06/25 23:39 Pulse Ox 97 04/06/25 23:50 O2 Del Method Nasal Cannula 04/06/25 23:07 O2 Flow Rate 2 04/06/25 23:07 Course Vital Signs Vital signs: Vital Signs Temperature 99.7 F 04/06/25 20:04 Pulse Rate 104 H 04/06/25 20:04 Respiratory Rate 24 H 04/06/25 20:04 Blood Pressure 129/80 04/06/25 20:04 Pulse Oximetry 99 04/06/25 20:04 Oxygen Delivery Method Room Air 04/06/25 20:04 Temperature 99.7 F 04/06/25 20:04 Pulse Rate 112 H 04/06/25 23:31 Respiratory Rate 27 H 04/06/25 23:39 Blood Pressure 124/82 04/06/25 23:39 Pulse Oximetry 97 04/06/25 23:50 Oxygen Delivery Method Nasal Cannula 04/06/25 23:07 Oxygen Delivery Flow Rate 2 04/06/25 23:07 MDM - Extremity (Nontraumatic) MDM Narrative Medical decision making narrative: This 64-year-old male with a history of chronic back pain who is status post right knee surgery recently and in follow-up had an effusion that was tapped by the orthopedic surgeon presents for evaluation of multiple complaints. He states he has pain all over his body. He has had diarrhea all day. His is concerned because he has not had anything to eat or drink throughout the day today. He also recently had an injection in his right back that he feels did not work. His family physician called in a prescription for Percocet for him earlier today and he took 1 and stated it made him feel somewhat better. He is not having any specific chest pain or shortness of breath but does remind me that he has a history of heart disease and A-fib. He has a Watchman device. He is not currently on any blood thinners. Upon arrival he had a low-grade fever and was tachycardic. He was placed on the traffic monitor specialist. An IV was placed and septic workup was ordered. His white count is elevated at 14.6 with a stable hemoglobin. Lactic acid is elevated 2.6. Electrolytes are reviewed; his glucose is 165, potassium is mildly low at 3.4. He is negative for COVID-19 and influenza. Troponin is normal. D-dimer was elevated. He does have an elevation in his liver function tests with AST of 60, ALT of 27, alkaline phosphatase is mildly elevated at 141 and total bilirubin is mildly elevated at 2.4. Due to the ongoing leg pain ultrasounds of both lower extremities were ordered and were reviewed by radiology and are negative for DVT. CT scan of the chest was also ordered due to the elevated D-dimer and the fact that he is no longer on anticoagulation, it is negative for pulmonary embolism or pneumonia but does show some nolvia-cholecystic fluid and edema concerning for acute cholecystitis. This was discussed with the patient and his . He is not having any abdominal pain and does not have any right upper quadrant tenderness. In the emergency department he is medicated with IV fluids, a dose of Dilaudid and Zofran and Tylenol for the low-grade fever. Urinalysis is negative for infection. He has remained hemodynamically stable. On reevaluation he states he is feeling much better. He is drinking clear liquids and eating Jell-O. Repeat lactic acid was ordered and is improved -it is now 1.4. Will be discharged home at this time with referral to outpatient general surgery for further evaluation of the findings on his CAT scan of possible cholecystitis. Lab Data Labs: Lab Results 04/06/25 04/06/25 04/06/25 Range/Units 20:28 20:41 23:15 WBC 14.6 H (4.0-11.0) 10^3/uL RBC 4.82 (4.70-6.10) 10^6/uL Hgb 17.1 (14.0-18.0) g/dL Hct 48.4 (42.0-54.0) % MCV 100.4 H (80.0-94.0) fL MCH 35.5 H (25.9-34.0) pg MCHC 35.3 H (29.9-35.2) g/dL RDW 12.1 (11.0-15.0) % Plt Count 216 (150-450) 10^3/uL MPV 10.7 (9.5-13.5) fL Neut % (Auto) 77.2 H (43.0-75.0) % Lymph % (Auto) 14.8 L (20.5-60.0) % Antelope % (Auto) 5.7 (1.7-12.0) % Eos % (Auto) 1.3 (0.9-7.0) % Baso % (Auto) 0.5 (0.2-2.0) % Neut # (Auto) 11.3 H (1.4-6.5) 10^3/uL Lymph # (Auto) 2.2 (1.2-3.8) 10^3/uL Antelope # (Auto) 0.8 (0.3-0.8) 10^3/uL Eos # (Auto) 0.2 (0.0-0.7) 10^3/uL Baso # (Auto) 0.1 (0.0-0.1) 10^3/uL Abs Immat Gran (auto) 0.08 H (0.00-0.03) 10^3/uL Imm/Tot Granulo (auto) 0.5 (0.0-0.5) % D-Dimer 2.00 H* (<=0.59) mg/L FEU Sodium 135 L (136-145) mmol/L Potassium 3.4 L (3.5-5.1) mmol/L Chloride 97 L (98-107) mmol/L Carbon Dioxide 27.4 (21.0-32.0) mmol/L Anion Gap 14.0 BUN 9.0 (7.0-18.0) mg/dL Creatinine 0.92 (0.70-1.30) mg/dL Est GFR ( Amer) >60 (>=60 mL/min/1.73m^2) Est GFR (Non-Af Amer) >60 (>=60 mL/min/1.73m^2) BUN/Creatinine Ratio 9.8 Glucose 165 H (74-106) mg/dL Lactate 2.6 H* (0.4-2.0) mmol/L Calcium 10.8 H (8.5-10.1) mg/dL Total Bilirubin 2.4 H (0.2-1.0) mg/dL AST 60 H (15-37) U/L ALT 27 (16-63) U/L Alkaline Phosphatase 141 H (46-116) U/L Troponin I High Sens 19.6 (4.0-76.1) pg/mL Total Protein 7.0 (6.4-8.2) g/dL Albumin 3.4 (3.4-5.0) g/dL Globulin 3.6 g/dL Albumin/Globulin Ratio 0.9 Urine Color Dk. yellow (YELLOW) Urine Clarity Clear (CLEAR) Urine pH 5.5 (5.0-9.0) Ur Specific Warren 1.015 (1.005-1.025) Urine Protein Negative (NEG/TRACE) mg/dL Urine Glucose (UA) Negative (NEGATIVE) mg/dL Urine Ketones 40 A (NEGATIVE) mg/dL Urine Occult Blood Negative (NEGATIVE) Urine Nitrite Negative (NEGATIVE) Urine Bilirubin Moderate A (NEGATIVE) Urine Urobilinogen 0.2 (0.2-1.0) EU/dL Ur Leukocyte Esterase Negative (NEGATIVE) Urine RBC None seen (0-2) #/HPF Urine WBC 2-5 A (NONE SEEN) #/HPF Ur Squamous Epith Cells Rare (NONE/RARE) #/LPF Urine Crystals None seen (None Seen) #/HPF Urine Bacteria None seen (NONE SEEN) #/HPF Urine Casts Seen A (NONE SEEN) #/LPF Hyaline Casts Few Urine Mucus None seen (NONE SEEN) Ur Culture Indicated? No Influenza Type A Ag Negative Influenza Type B Ag Negative SARS-CoV-2 Ag (CV2AG) Negative (NEGATIVE) 04/06/25 Range/Units 23:32 WBC (4.0-11.0) 10^3/uL RBC (4.70-6.10) 10^6/uL Hgb (14.0-18.0) g/dL Hct (42.0-54.0) % MCV (80.0-94.0) fL MCH (25.9-34.0) pg MCHC (29.9-35.2) g/dL RDW (11.0-15.0) % Plt Count (150-450) 10^3/uL MPV (9.5-13.5) fL Neut % (Auto) (43.0-75.0) % Lymph % (Auto) (20.5-60.0) % Antelope % (Auto) (1.7-12.0) % Eos % (Auto) (0.9-7.0) % Baso % (Auto) (0.2-2.0) % Neut # (Auto) (1.4-6.5) 10^3/uL Lymph # (Auto) (1.2-3.8) 10^3/uL Antelope # (Auto) (0.3-0.8) 10^3/uL Eos # (Auto) (0.0-0.7) 10^3/uL Baso # (Auto) (0.0-0.1) 10^3/uL Abs Immat Gran (auto) (0.00-0.03) 10^3/uL Imm/Tot Granulo (auto) (0.0-0.5) % D-Dimer (<=0.59) mg/L FEU Sodium (136-145) mmol/L Potassium (3.5-5.1) mmol/L Chloride (98-107) mmol/L Carbon Dioxide (21.0-32.0) mmol/L Anion Gap BUN (7.0-18.0) mg/dL Creatinine (0.70-1.30) mg/dL Est GFR ( Amer) (>=60 mL/min/1.73m^2) Est GFR (Non-Af Amer) (>=60 mL/min/1.73m^2) BUN/Creatinine Ratio Glucose (74-106) mg/dL Lactate 1.4 (0.4-2.0) mmol/L Calcium (8.5-10.1) mg/dL Total Bilirubin (0.2-1.0) mg/dL AST (15-37) U/L ALT (16-63) U/L Alkaline Phosphatase (46-116) U/L Troponin I High Sens (4.0-76.1) pg/mL Total Protein (6.4-8.2) g/dL Albumin (3.4-5.0) g/dL Globulin g/dL Albumin/Globulin Ratio Urine Color (YELLOW) Urine Clarity (CLEAR) Urine pH (5.0-9.0) Ur Specific Warren (1.005-1.025) Urine Protein (NEG/TRACE) mg/dL Urine Glucose (UA) (NEGATIVE) mg/dL Urine Ketones (NEGATIVE) mg/dL Urine Occult Blood (NEGATIVE) Urine Nitrite (NEGATIVE) Urine Bilirubin (NEGATIVE) Urine Urobilinogen (0.2-1.0) EU/dL Ur Leukocyte Esterase (NEGATIVE) Urine RBC (0-2) #/HPF Urine WBC (NONE SEEN) #/HPF Ur Squamous Epith Cells (NONE/RARE) #/LPF Urine Crystals (None Seen) #/HPF Urine Bacteria (NONE SEEN) #/HPF Urine Casts (NONE SEEN) #/LPF Hyaline Casts Urine Mucus (NONE SEEN) Ur Culture Indicated? Influenza Type A Ag Influenza Type B Ag SARS-CoV-2 Ag (CV2AG) (NEGATIVE) ECG Data Attestation ECG: I personally reviewed and interpreted this ECG as follows: (Sinus rhythm at 96 bpm, normal axis, Q-wave in lead III, occasional PVCs, no acute ST segment elevation or T wave inversion) Discharge Plan Discharge Chief Complaint: Extremity Problem, Nontraumatic Clinical Impression: Leg pain, Chronic back pain, Diarrhea, Mild dehydration Patient Disposition: Home, Self-Care Time of Disposition Decision: 00:31 Condition: Good Prescriptions / Home Meds: No Action atorvastatin 80 mg tablet 80 mg PO QDAY dofetilide 125 mcg capsule 125 mcg PO Q12H alprazolam 0.5 mg tablet 0.5 mg PO BEDTIME aspirin 81 mg capsule 81 mg PO DAILY escitalopram oxalate 20 mg tablet 20 mg PO DAILY levothyroxine 150 mcg tablet 150 mcg PO DAILY metoprolol succinate 50 mg tablet extended release 24 hr 50 mg PO DAILY pantoprazole 40 mg tablet,delayed release (DR/EC) 40 mg PO DAILY valacyclovir 500 mg tablet 500 mg PO DAILY gabapentin 400 mg capsule spironolactone 25 mg tablet gabapentin 300 mg capsule oxycodone 5 mg tablet valsartan 40 mg tablet Print Language: Slovak Instructions: Cholecystitis (ED), Dehydration (ED), Chronic Back Pain (DC) Referrals: Coleman Luz DO [Primary Care Provider, Internal Medicine] - 1 week
--- NOTE | 2025-04-06 20:27 | ECG_ITS ---
[facility] Test Date: 2025-04-06 Pat Name: ESME KAMINSKI Department: Room: - Gender: Male Anesthesia Attending: : 1960 Requested By: [id number] Order Number: [id number] Reading MD: TEE BAIRES M.D. Measurements Intervals [place] Rate: 96 P: -45632 VT: -93291 QRS: 4 QRSD: 122 T: 150 QT: 334 QTc: 388 Interpretive Statements Sinus rhythm with occasional ventricular premature complexes 3634 Inferior myocardial infarction, age undetermined [address] depression 4564 Twave abnormality, possible lateral ischemia 9150 abnormal ECG Compared to ECG 09/28/2024 17:10:45 Ventricular premature complex(es) now present Possible ischemia now present Atrial fibrillation no longer present Myocardial infarct finding still present ST (T wave) deviation still present Electronically Signed On 04-07-2025 19:18:49 EST by TEE BAIRES M.D.
[2025-04-06 20:53] LABS: Hematocrit 48.4 % (42.0-54.0); Hemoglobin 17.1 g/dL (14.0-18.0); Immature Granulocytes Abs Auto 0.08 10^3/uL (0.00-0.03); Immature Granulocytes Pct Auto 0.5 % (0.0-0.5); Lymphocytes Absolute Auto 2.2 10^3/uL (1.2-3.8); Mean Corpuscular HGB Conc 35.3 g/dL (29.9-35.2); Mean Corpuscular Hemoglobin 35.5 pg (25.9-34.0); Mean Corpuscular Volume 100.4 fL (80.0-94.0); Platelet Count 216 10^3/uL (150-450); Red Blood Count 4.82 10^6/uL (4.70-6.10); White Blood Count 14.6 10^3/uL (4.0-11.0)
--- OUTSIDE RECORDS SUMMARY | 2025-04-06 20:56 | XMS_ITS | Clinical Summary ---
Author Organization [facility] Address [address] [place] [address] Phone Care Team Providers Care Glue Line Operator Name Role Phone Coleman Luz Primary Care Provider [phone] Allergies Active AllergyReactionsCriticalityNoted DateCommentsPrednisoneOther,HeadacheLow 07/27/2023 Light sensitivity. [...] left atrial appendage closure device 01/28/2024Never smoked wlosfmpbnv08/11/2024Multi-vessel coronary artery stenosis 07/27/2023ardiomyopathy, wrucryae08/19/2024Mixed ohmlpbsaebjvmo64/19/2024Status post aorto-coronary artery bypass graft07/27/2023ersistent atrial fibrillation 07/27/2023 Resolved Problems ProblemNoted DateDiagnosed DateResolved DateAtrial fibrillation, unspecified type/trial uumfyteifpjr95/19/202411/aroxysmal atrial zmaswjdufzle51/19/202404/MI 32.0-32.9,adult/ Encounters DateTypeDepartmentCare ZyfyRvdmxjgausi43/24/2025 6:25 AM EDTClinical Support [facility] [address] [place] [address] 01/30/2025 2:25 AM EDTClinical Support [facility] [address] [place] [address] 01/30/2025 1:32 AM EDT - 01/30/2025 9:30 AM EDTEmergency [facility] [address] [place] [phone] Diogo Macias MD Lareau, Aaron D, MD Right leg weakness (Primary Dx) Discharge Disposition: Home01/30/2025Travelfrom Last 3 Months Immunizations ImmunizationAdministration DatesNext DueDTaP, Rqdssyydelt55/05/2021Flu vaccine (IIV4), preservative free *Check age/dose*04/05/2023Influenza, Split (incl. purified surface antigen)02/06/2022,01/13/2020,01/02/2019Influenza, injectable, MDCK, yhscleskfdfx95/15/2018Influenza, seasonal, poaaouawjk17/19/2024Influenza, trivalent, /12/2021Pfizer Purple Cap YSRY-KoS-656/09/2021 Family History Medical HistoryRelationNameCommentsNo Known ProblemsFatherNo Known Problems MotherRelationNameStatusCommentsFatherDeceasedMotherDeceased Social History Tobacco UseTypesPacks/DayYears UsedDateSmoking Tobacco: NeverSmokeless Tobacco: Never Tobacco Cessation:Counseling Given: Not Answered Alcohol UseStandard Drinks/PzrfTpyducnsAie02 (1 standard drink = 0.6 oz pure alcohol)PHQ-2AnswerDate RecordedPatient Health Questionnaire-2 Pyniz161 Sex and Gender InformationValueDate RecordedSex Assigned at BirthNot on file Legal KcoUsje1107/09/2023 9:17 AM EDTGender IdentityNot on fileSexual Orientation Not on file Last Filed Vital Signs Vital SignReadingTime TakenCommentsBlood Nugcymxp961/7310 8:08 AM EDT Ppqul243801/30/2025 8:08 AM BRDErjubkldxbk58.7 ??C (98 ??F)01/30/2025 2:15 AM EDT Respiratory Irwj3314 8:08 AM EDTOxygen Qfuarkgrwk63%01/30/2025 8:08 AM EDTInhaled Oxygen Concentration--Uewcoy10.2 kg (212 lb)01/30/2025 1:41 AM EDT Xeuynj734.8 cm (5' 10 )01/30/2025 1:41 AM EDTBody Mass Index30.421 1:41 AM EDT Plan of Treatment DateTypeDepartmentCare Team (Latest Contact Info)Hbfpaoejqjj40/12/2026 3:20 PM EDTOffice Visit at [facility] [address] [facility] [address] [place] [phone] Daisy Mora MD [address] [facility] [address] [place] [address] Health MaintenanceDue DateLast DoneCommentsCT Zogbccbyulnv86/09/1960FIT-DNA (Cologuard)1959FIT1959Lipid Panel1959 2226Ponwzbthhambn96/09/1960 TSH Level1959MMR Vaccines (1 of 1 - Standard series)12/16/1960Hepatitis C Ksjrnfdgr44/09/1978Hepatitis A Vaccines (1 of 2 - Risk 2-dose series)12/16/1978 Pneumococcal Vaccine (1 of 2 - PCV)12/16/1978PSA Prostate Cancer Screening 12/16/2009RSV High Risk: (Elderly (60+) or Population) (1 - Risk 50-74 years 1-dose series)12/16/2009Zoster Vaccines (1 of 2)12/16/2009Hepatitis B Vaccines (1 of 3 - Risk 3-dose series)2019Medicare Annual Wellness Visit (AWV)508/4COVID-19 Vaccine (2 - season)2024 06/15/2020Influenza Vaccine (#1)/, 04/05/2023, 02/06/2022, Additional history qpdghdKsrrkjapkvayxo09/05/202605/08/2024, 01/29/2024, 01/29/2024, Additional history existsCreatinine Level/, 01/29/2024iabetes Ksxuennen54, 01/29/2024otassium Level , 01/29/2024TaP/Tdap/Td Vaccines (2 - Tdap)05/14/2030 05/14/20208884Uobdlxtrqtk42, 12/31/2023olorectal Cancer Screening 4Bone Density TabzEkisiefweocw95/21/2024, 06/28/2023, 06/28/2023Welcome to Medicare VqclxXddehwcvfzbf83/12/2024HIB VaccinesAged OutNo longer eligible based on patient's age to complete this topicHPV VaccinesAged OutNo longer eligible based on patient's age to complete this topicIPV VaccinesAged OutNo longer eligible based on patient's age to complete this topicMeningococcal VaccineAged OutNo longer eligible based on patient's age to complete this topic Rotavirus VaccinesAged OutNo longer eligible based on patient's age to complete this topic Medical Devices ImplantedTypeAreaManufacturerDevice IdentifierShelf Expiration DateModel / Serial / LotJoint HipJoint HipBilateral: HipJoint KneeJoint KneeBilateral: Knee Device, Closure, 27mm Watchman Flx Pro Laac - [id number] Implanted:Qty: 1 on 01/29/2024 by [facility] Cardiac ImplantN/A: HeartJalousier [id number] 09/18/[id number] / / [id number] Procedures Procedure NamePriorityDate/TimeAssociated DiagnosisCommentsECG 12-LEADRoutine 01/30/2025 6:23 AM EDT MR INTERPRETATION OF OUTSIDE IANVUUHLM71/24/2025 5:05 AM EDT PROTIME-SFATNKN8001/30/2025 3:41 AM EDT ECG 12-YIKVUOCI61/24/2025 2:21 AM EDT TYPE AND FFAXJYCJQD57/ 2:16 AM EDT COMPREHENSIVE METABOLIC OTJCNEKLP54/24/2025 2:16 AM EDT CBC WITH AUTO LHOVWNWQFGCCHAWJ29/24/2025 2:16 AM EDT EVPHQFKNXFZCOG59/05/2025 from Last 3 Months or Most Recently Relevant to Health Maintenance Results * ECG 12 lead (01/30/2025 6:23 AM EDT) Only the most recent of2 resultswithin the time period is included. ComponentValueRef RangeTest MethodAnalysis TimePerformed AtPathologist Signature Ventricular Yeeq42BZZTGXQZPT Ddxyycap461vwHSISKC Xlahmvmd690fwXUTVYOC Calculation(Bazett)464msMUSER Oidg22rccaxhoEKGFV [place]-16degreesMUSEQRS Count13 beatsMUSEQ Mqmic467kyFMERE Kqnped718ypGMSHDUD Eqyhdihzyz240zcREAHJiadrjjp (Source)Anatomical Location / LateralityCollection Method / VolumeCollection [...] and clinical correlation Confirmed by Savana Meza ([id number]) on 01/30/2025 7:48:49 PM Procedure Note Savana Meza PA-C - 01/30/2025 Atrial fibrillation with a competing junctional pacemaker Nonspecific T wave abnormality Abnormal ECG When compared with ECG of 30-JAN-2025 02:19, Criteria for Inferior infarct are no longer Present See ED provider note for full interpretation and clinical correlation Confirmed by Savana Meza ([id number]) on 01/30/2025 7:48:49 PM Authorizing ProviderResult TypeResult StatusAdam Colleen MACHUCA ORDERABLESFinal ResultPerforming OrganizationAddressCity/State/ZIP CodePhone Number MUSE * [...] Mendez 01/30/2025 9:54 AM Dictation workstation: ?? [id number] Narrative 01/30/2025 9:54 AM EDT Interpreted By: Nilson Mendez, STUDY: MR INTERPRETATION OF OUTSIDE FILMS; ; ??01/30/2025 5:05 am ?? INDICATION: Signs/Symptoms:Interpretation of outside film. ??2nd opinion requested by the referring physician. Right lower extremity pain and weakness after epidural injection. ? COMPARISON: No prior cross-sectional evaluation of the lumbar spine is available at this institution at this time. ?? ACCESSION NUMBER(S): [id number] ?? ORDERING CLINICIAN: DIOGO MACIAS ?? TECHNIQUE: [...] this institution at this time. ACCESSION NUMBER(S): [id number] ORDERING CLINICIAN: DIOGO MACIAS TECHNIQUE: Outside institution [...] Nilson Mendez 01/30/2025 9:54 AM Dictation workstation: [id number] Authorizing ProviderResult TypeResult StatusAdadeon ANN MRI PROCEDURES Final Result * Protime-INR (01/30/2025 3:41 AM EDT)ComponentValueRef RangeTest MethodAnalysis TimePerformed AtPathologist YucviiiumLptgiyr23.09.8 - 12.4 seconds LAB COAGULATION METHOD 01/30/2025 4:33 AM [facility] LABINR1.00.9 - 1.1 LAB COAGULATION METHOD 01/30/2025 4:33 AM [facility] LABSpecimen (Source)Anatomical Location / LateralityCollection Method / VolumeCollection TimeReceived TimeBloodVenous blood specimen / UnknownVenipuncture / Nndmkcm7601/30/2025 3:41 AM EDT1 4:05 AM EDT Narrative Authorizing ProviderResult TypeResult StatusFrancdeana Dias WVLAB BLOOD ORDERABLESFinal ResultPerforming OrganizationAddressCity/State/ZIP CodePhone Number [facility] [address] [facility] [address] [place] [address] * (ABNORMAL) CBC and Auto Differential (01/30/2025 2:16 AM EDT)ComponentValueRef RangeTest MethodAnalysis TimePerformed AtPathologist SignatureWBC7.04.4 - 11.3 x10*3/uL LAB HEMATOLOGY METHOD 01/30/2025 3:12 AM [facility] LABnRBC0.00.0 - 0.0 /100 WBCs LAB HEMATOLOGY METHOD 01/30/2025 3:12 AM [facility] LABRBC3.87(L)4.50 - 5.90 x10*6/uL LAB HEMATOLOGY METHOD 01/30/2025 3:12 AM [facility] XGYLfsltuiczo09.113.5 - 17.5 g/dL LAB HEMATOLOGY METHOD 01/30/2025 3:12 AM [facility] BDHGadjyahrqp75.0(L)41.0 - 52.0 % LAB HEMATOLOGY METHOD 01/30/2025 3:12 AM [facility] CJFRGK515(H)80 - 100 fL LAB HEMATOLOGY METHOD 01/30/2025 3:12 AM [facility] YXZUMS18.4(H)26.0 - 34.0 pg LAB HEMATOLOGY METHOD 01/30/2025 3:12 AM [facility] ZIRZXJL19.2(H)32.0 - 36.0 g/dL LAB HEMATOLOGY METHOD 01/30/2025 3:12 AM [facility] DUIBLM34.611.5 - 14.5 % LAB HEMATOLOGY METHOD 01/30/2025 3:12 AM [facility] ASNZihrmulga766(L)150 - 450 x10*3/uL LAB HEMATOLOGY METHOD 01/30/2025 3:12 [facility] LABNeutrophils %73.440.0 - 80.0 % LAB HEMATOLOGY METHOD 01/30/2025 3:12 [facility] LABImmature Granulocytes %, Automated1.9(H)0.0 - 0.9 % LAB HEMATOLOGY METHOD 01/30/2025 3:12 AM [facility] LABComment:Immature Granulocyte Count (IG) includes promyelocytes, myelocytes and metamyelocytes but does not include bands. Percent differential counts (%) should be interpreted in the context of the absolute c ell counts (cells/UL).Lymphocytes %16.313.0 - 44.0 % LAB HEMATOLOGY METHOD 01/30/2025 3:12 AM [facility] LABMonocytes %7.72.0 - 10.0 % LAB HEMATOLOGY METHOD 01/30/2025 3:12 AM [facility] LABEosinophils %0.40.0 - 6.0 % LAB HEMATOLOGY METHOD 01/30/2025 3:12 [facility] LABBasophils %0.30.0 - 2.0 % LAB HEMATOLOGY METHOD 01/30/2025 3:12 AM [facility] LABNeutrophils Absolute5.141.20 - 7.70 x10*3/uL LAB HEMATOLOGY METHOD 01/30/2025 3:12 AM [facility] LABComment:Percent differential counts (%) should be interpreted in the context of the absolute cell counts (cells/uL).Immature Granulocytes Absolute, Automated0.130.00 - 0.70 x10*3/uL LAB HEMATOLOGY METHOD 01/30/2025 3:12 AM [facility] LABLymphocytes Absolute1.14(L)1.20 - 4.80 x10*3/uL LAB HEMATOLOGY METHOD 01/30/2025 3:12 AM [facility] LABMonocytes Absolute0.540.10 - 1.00 x10*3/uL LAB HEMATOLOGY METHOD 01/30/2025 3:12 AM [facility] LABEosinophils Absolute0.030.00 - 0.70 x10*3/uL LAB HEMATOLOGY METHOD 01/30/2025 3:12 AM [facility] LABBasophils Absolute0.020.00 - 0.10 x10*3/uL LAB HEMATOLOGY METHOD 01/30/2025 3:12 AM [facility] LABSpecimen (Source)Anatomical Location / Laterality Collection Method / VolumeCollection TimeReceived TimeBloodVenous blood specimen / UnknownVenipuncture / Qugqzbh0601/30/2025 2:16 AM EDT1 2:32 AM EDT Narrative Authorizing ProviderResult TypeResult StatusFrkiley Dias WVLAB BLOOD ORDERABLESFinal ResultPerforming OrganizationAddressCity/State/ZIP CodePhone Number [facility] [address] [address] * Type And Screen (01/30/2025 2:16 AM EDT)ComponentValueRef RangeTest Method Analysis TimePerformed AtPathologist SignatureABO TYPEA1 5:04 AM EDT [facility] BLOOD BANKRh OUEFCOY1501/30/2025 5:04 AM EDTWERNERSV[facility]LE [facility] BLOOD BANKANTIBODY XMSUURZXL37/24/2025 5:04 AM [facility] BLOOD BANKSpecimen (Source)Anatomical Location / LateralityCollection Method / VolumeCollection TimeReceived Time BloodVenous blood specimen / UnknownVenipuncture / Jksdoff1201/30/2025 2:16 AM EDT1 3:16 AM EDT Narrative Authorizing ProviderResult TypeResult StatusFrkiley Dias MDLAB BLOOD BANK TEST ORDERABLESFinal ResultPerforming OrganizationAddressCity/State/ZIP Code Phone Number [facility] B[facility]OD [facility]ANK [address] [place] [address] * (ABNORMAL) Comprehensive metabolic panel (01/30/2025 2:16 AM EDT)Component ValueRef RangeTest MethodAnalysis TimePerformed AtPathologist SignatureGlucose 169(H)74 - 99 mg/dL LAB CHEMISTRY METHOD 01/30/2025 3:06 AM [facility] AECLhylkg735246 - 145 mmol/L LAB CHEMISTRY METHOD 01/30/2025 3:06 AM [facility] LABPotassium3.73.5 - 5.3 mmol/L LAB CHEMISTRY METHOD 01/30/2025 3:06 AM [facility] OBLVakvigfm04334 - 107 mmol/L LAB CHEMISTRY METHOD 01/30/2025 3:06 AM [facility] MQPQzqarpodaol6314 - 32 mmol/L LAB CHEMISTRY METHOD 01/30/2025 3:06 AM [facility] LABAnion Iro0414 - 20 mmol/L LAB CHEMISTRY METHOD 01/30/2025 3:06 AM [facility] LABUrea Eckvyobv434 - 23 mg/dL LAB CHEMISTRY METHOD 01/30/2025 3:06 AM [facility] LABCreatinine0.730.50 - 1.30 mg/dL LAB CHEMISTRY METHOD 01/30/2025 3:06 AM [facility] LABeGFR>90>60 mL/min/1.73m*2 LAB CHEMISTRY METHOD 01/30/2025 3:06 AM [facility] LABComment: Calculations of estimated GFR are performed using the 2020 CKD-EPI Study Refit equation without therace variable for the IDMS-Traceable creatinine methods. https://jasn.asnjournals.org/content///ASN.7787434709 Calcium9.28.6 - 10.6 mg/dL LAB CHEMISTRY METHOD 01/30/2025 3:06 AM [facility] LABAlbumin4.03.4 - 5.0 g/dL LAB CHEMISTRY METHOD 01/30/2025 3:06 AM [facility] LABAlkaline Xodztsejoek0287 - 136 U/L LAB CHEMISTRY METHOD 01/30/2025 3:06 AM [facility] LABTotal Protein6.3(L)6.4 - 8.2 g/dL LAB CHEMISTRY METHOD 01/30/2025 3:06 AM [facility] TYYMIE982 - 39 U/L LAB CHEMISTRY METHOD 01/30/2025 3:06 AM [facility] LABBilirubin, Total1.20.0 - 1.2 mg/dL LAB CHEMISTRY METHOD 01/30/2025 3:06 AM [facility] CHVNIR4808 - 52 U/L LAB CHEMISTRY METHOD 01/30/2025 3:06 AM [facility] LABComment:Patients treated with Sulfasalazine may generate falsely decreased results for ALT.Specimen (Source)Anatomical Location / LateralityCollection Method / VolumeCollection TimeReceived TimeBloodVenous blood specimen / UnknownVenipuncture / Peubvge8701/30/2025 2:16 AM EDT1 2:32 AM EDT Narrative Authorizing ProviderResult TypeResult StatusFrancis Chrissy Dias MDLAB BLOOD ORDERABLESFinal ResultPerforming OrganizationAddressCity/State/ZIP CodePhone Number [facility] [address] [facility] [address] [place] [address] * Echocardiogram (08/11/2024) Narrative 08/11/2024 Ordered by an unspecified provider. Authorizing ProviderResult TypeResult StatusGeneric Provider ScanningCV ECHO PROCEDURESFinal Result from Last 3 Months or Most Recently Relevant to Health Maintenance Insurance Advance Directives For more information, please contact: [phone] (Available ) * Full Code (Latest Code Status on File) Date ActivatedDate AgladxwesbmHjjlocms41/22/2024 9:31 AMQuestionAnswerComments Plan of Care:* Code Status Discussion Completed Decision Maker:* Patient Care Teams Team MemberRelationshipSpecialtyStart DateEnd Date [place] [address] PCP - GeneralInternal Medicine05/07/24
--- OUTSIDE RECORDS SUMMARY | 2025-04-06 20:56 | XMS_ITS | Clinical Summary ---
Author Organization [employer] Address [id number] [address] [place] [address] Care Team Providers Care Educational Manager Name Role Phone Coleman Luz Primary Care Provider [phone] Allergies Active AllergyReactionsCriticalityNoted DateCommentsNo Known Drug AllergiesOther [...] tablet ctive Active Problems ProblemNoted DateDiagnosed DateAtrial mmubyfslwgfe29/26/2024oronary artery disease involving [place] coronary artery of [place] heart without angina pectoris 10/20/2021evere obesity (BMI 35.0-39.9) with gkzvlatgmmy12/01/2022izziness 08/08/2019Atherosclerosis of autologous vein coronary artery bypass graft 11/13/2014Vertebrobasilar circulation transient ischemic cgcdfv6803/26/2007 HypertensionNonrheumatic mitral (valve) insufficiencyHyperlipidemiaOther transient cerebral ischemic attacks and related syndromesObstructive sleep apnea Resolved Problems ProblemNoted DateDiagnosed DateResolved DateAbnormal stress test01/26/2020 06/04/2023 Overview (01/26/2020): Added automatically from request for surgery [id number] Abnormal nuclear stress testMitral stenosis with adcylpmxsgkst02therosclerosis of autologous vein coronary artery bypass graft with angina tvvyrocc08/14/2022Heart ihowfxr9910/20/2021 Family History Medical HistoryRelationNameCommentsStrokeMotherRelationNameStatusCommentsFather DeceasedMotherAlive Social History Tobacco UseTypesPacks/DayYears UsedDateSmoking Tobacco: NeverSmokeless Tobacco: Never Tobacco Cessation:Counseling Given: Not Answered Alcohol UseStandard Drinks/WeekCommentsYes0 (1 standard drink = 0.6 oz pure alcohol)ChildcareAnswerDate LchaslypUkjxypxgqIevqydf84/12/2019EmploymentAnswer Date XlqiezdjZcisrbtuaiKgfpybw71/12/2019Hunger ScreeningAnswerDate Recorded Within the past 12 months we worried whether our food would run out before we got money to buy more.Never True06/04/2023Within the past 12 months the food we bought just didn't last and we didn't have money to get more.Never True 06/04/2023urpose - LifeAnswerDate RecordedPurpose and direction in lifeUnknown 05/20/2020ex and Gender InformationValueDate RecordedSex Assigned at BirthNot on fileLegal MatUfcr6711/12/2014 11:34 AM EDTGender IdentityNot on fileSexual OrientationNot on file Last Filed Vital Signs Vital SignReadingTime TakenCommentsBlood Szmamhyh331/80006/04/2023 2:08 PM EST Cmpst125406/04/2023 2:08 PM BFNPhefrwzbedk30 ??C (98.6 ??F)02/03/2020 7:34 AM EDT Respiratory Yucu313104/18/2023 1:30 PM ESTOxygen Jkzgumpepa84%06/04/2023 2:08 PM ESTInhaled Oxygen Concentration--Igfgge817 kg (238 lb)06/04/2023 2:08 PM EST Wimkyc119.8 cm (5' 10 )06/04/2023 2:08 PM ESTBody Mass Index34.15006/04/2023 2:08 PM EST Plan of Treatment Health MaintenanceDue DateLast DoneCommentsStatin Use: Oprsqydoqqrtwo55/09/1960 Depression Ziosgzppp27/09/1972Zoster (Shingles) Vaccine (1 of 2)12/16/2009dult BMI Zbikxksjb61Tobacco Oskkyzzhc35OVID-19 Vaccine ( - season)/06/2021, 06/25/2020, 06/04/2020 Influenza Husbabe33/, 01/18/2021, 01/13/2020, Additional history existsFall Risk Wrtmyygfm89/09/2025DTaP,Tdap and Td Vaccines (2 - Tdap) /1RSV ( or age 60+ yrs) (1 - 1-dose 75+ series) 12/16/2034 Medical Devices Not on file Insurance Care Teams Team MemberRelationshipSpecialtyStart DateEnd Date Coleman Luz DO [address] [place] [address] PCP - Koaszjp43/2/18
--- OUTSIDE RECORDS SUMMARY | 2025-04-06 20:56 | XMS_ITS | Clinical Summary ---
Author Organization [facility] Address [address] [place] [address] Care Team Providers Care Candy Mixer Name Role Phone Melinda Verduzco APRN.DRYING OVEN ATTENDANT Unavailable Coleman Luz DO Primary Care Provider [phone] Allergies No known active allergies Medications MedicationSigDispense [...] rate,Elevated C-reactive protein (CRP),PMR (polymyalgia rheumatica) ([facility])Day 1=6tabs with food, Day 2=5tabs, Day 3=4tabs, [...] 5Active Active Problems ProblemNoted DateDiagnosed DateLeg weakness, icqwrsqhu15/24/2025hronic pain of both knees03/05/2023ain in right hip01/05/2023Rotator cuff arthropathy of left oelcspnh68/29/2023ilateral hand pain01/05/2023Secondary osteoarthritis of multiple sites01/05/2023seudogout involving multiple yzfrbw8501/05/2023MR (polymyalgia rheumatica)01/05/2023Idiopathic chronic gout of multiple sites without gynryx6201/05/2023Long term current use of systemic /29/2023NA hvycprhb24/29/2023ilateral hand hvotchom64/29/9700Roujlztvpt41/23/2014CAD (coronary artery disease)10/29/2013OA (osteoarthritis)10/29/2013Hyperlipidemia 10/29/20133153Uhooecspbdcpjr10/23/2014Swelling of knee joint06/01/2009 Immunizations ImmunizationAdministration DatesNext Duediphtheria tetanus pertussis (DTaP) vaccine, unspecified jhiszeislrg89/05/2021influenza (aIIV3) vaccine, age 65+ yr, trivalent, PF (FLUAD)01/18/2021influenza (ccIIV4) vaccine, age 6+ mo, quadrivalent (FLUCELVAX)01/21/2018influenza vaccine, split virus02/06/2022, 01/13/2020,01/02/2019 Family History Medical HistoryRelationCommentsHeartFatherLipidsFatherStrokeMotherRelationStatus CommentsFatherMother Social History Tobacco UseTypesPacks/DayYears UsedDateSmoking Tobacco: Never Tobacco Cessation:Counseling Given: Yes Alcohol UseStandard Drinks/NkatPpsofnmqObg23 (1 standard drink = 0.6 oz pure alcohol)Area Deprivation IndexAnswerDate RecordedNational Score (1-100), lower number is lower zvdn867109/13/2024State Score (1-10), lower number is lower risk4 09/13/2024Data from: https://www.neighborhoodatlas.[facility].edu/. Last address used for y[address]09/13/2024Sex and Gender InformationValueDate RecordedSex Assigned at BirthNot on fileLegal SexMale 03/10/2012 8:27 AM ESTGender IdentityNot on fileSexual OrientationNot on file OccupationIndustryJob Start DateJob End DateNot working nowNot on fileNot on fileNot on file Last Filed Vital Signs Vital SignReadingTime TakenCommentsBlood Vindeinv093/8503/ 9:38 AM EDT Jipdt2274 9:38 AM ZDSElppkibwsie75.2 ??C (98.9 ??F)10/29/2013 3:23 PM EDTRespiratory Rate--Oxygen Saturation--Inhaled Oxygen Concentration--Lzgrnw246 kg (235 lb 14.3 oz)06/30/2024 9:38 AM UOORivfop440.1 cm (5' 10.5 )01/05/2023 10:55 AM EDTBody Mass Index33.37001/05/2023 10:55 AM EDT Plan of Treatment DateTypeDepartmentCare Team (Latest Contact Info)Fdcpsjjynhl42/23/2026 9:00 AM EDTOffice Visit Rheumatology [address] [facility] [place] [address] Rose Foster MD [address] [facility] [place] [address] Return for gout/osteoarthritis/pseudogout/low vit fu OV 6-12months.08/25/2025 12:00 PM EDTOffice Visit Rheumatology [address] [place] [address] Rose Foster MD [address] [facility] [place], [place] [id number] Follow up for osteoarthritis/PMR/gout in 6-12monthsHealth MaintenanceDue Date Last DoneCommentsAnnual PCP Team Chronic Disease Visit12/16/1977Anxiety Dweejjusy02/09/1978Depression Qijziouiy19/09/1978HIV Srswsxdik89/09/1978LDL Swzesinhhij30/09/1978Lipid Siawshivk91/09/1995CT Mbiovjzvypxr53/09/2005Cologuard (FIT-DNA)12/16/20049267Pjdldgwmtif31/09/2005Colorectal Cancer Ocdyrfcoh71/09/2005 Fecal Occult Blood12/16/20041303Kdecjhxzthzmy42/09/2005Pneumococcal Vaccine: 50+ (1 of 1 - PCV)12/16/2009Shingrix Vaccine (1 of 2)12/16/2009Medicare Advantage Annual Wellness Visit04/09/2024ovid-19 Vaccine (2024- season)2024 04/11/2021, 06/25/2020, 06/04/2020Influenza Vaccine (#1), 02/06/2022, 01/18/2021, Additional history existsAdvance Directive Discussion 12/16/2024Diabetes Budsuykdb70/24/43052106/30/2024, 01/29/2024, 06/12/2023, Additional history existsProstate Cancer Screening Txqdkysbwz35/22/2028 3DTaP,Tdap,Td Vaccine (2 - Tdap)/1RSV Vaccine (1 - 1- dose 75+ series)12/16/2034Hepatitis C SyxmpyukzPqihymjrl62/29/2023, 02/07/2010 Procedures Procedure NamePriorityDate/TimeAssociated DiagnosisCommentsCOMPREHENSIVE METABOLIC DFANOHcxsplq02/24/2025 10:15 AM EDT Elevated LFTs HEPATITIS C ANTIBODY IA WITH LISLLWKNSFJTEpxsdhz16/29/2023 12:31 PM EDT Elevated LFTs from Last 3 Months or Most Recently Relevant to Health Maintenance Results * (ABNORMAL) COMPREHENSIVE METABOLIC PANEL (06/30/2024 10:15 AM EDT)Component ValueRef RangeTest MethodAnalysis TimePerformed AtPathologist Signature Protein, Total7.16.3 - 8.0 g/dL06/30/2024 9:41 PM [facility] LABAlbumin4.13.9 - 4.9 g/dL06/30/2024 9:41 PM [facility] LABCalcium, Total9.78.5 - 10.2 mg/dL06/30/2024 9:41 PM [facility] LABBilirubin, Total0.70.2 - 1.3 mg/dL06/30/2024 9:41 PM EDT [facility] LABAlkaline Tehsinwnduo8065 - 113 U/L06/30/2024 9:41 PM [facility] DNSUCZ8767 - 40 U/L06/30/2024 9:41 PM [facility] AVDMES28(H)10 - 54 U/L06/30/2024 9:41 PM EDT [facility] VUZWgphsmd904(H)74 - 99 mg/dL06/30/2024 9:41 PM [facility] LABComment: The [place] Diabetes Association (ADA) provides guidance for cutoff [...] Standards of Medical Care in Diabetes 2016, [place] Diabetes Association. Diabetes Care. 2016.39(Suppl 1). GKD940 - 24 mg/dL06/30/2024 9:41 PM [facility] Creatinine0.930.73 - 1.22 mg/dL06/30/2024 9:41 PM [facility] TKERszkrr831(L)136 - 144 mmol/L06/30/2024 9:41 PM [facility] LABPotassium4.53.7 - 5.1 mmol/L06/30/2024 9:41 PM [facility] RJOHockgccr15(L)98 - 107 mmol/L06/30/2024 9:41 PM EDT [facility] ZOZTC10704 - 30 mmol/L06/30/2024 9:41 PM T [facility] LABAnion Das821 - 15 mmol/L06/30/2024 9:41 PM T [facility] LABEstimated Glomerular Filtration Rate92>=60 mL/min/1.73m 06/30/2024 9:41 PM [facility] LABComment:Estimated Glomerular Filtration Rate (eGFR) is calculated [...] VolumeCollection TimeReceived TimeBloodBLOOD SPECIMEN / UnknownVenipuncture / Vblecec2406/30/2024 10:15 AM EDT06/30/2024 10:16 AM EDT Narrative Authorizing ProviderResult TypeResult StatusMargaret Kristin MDLABORATORYFinal ResultPerforming OrganizationAddressCity/State/ZIP CodePhone Number [facility] [address] [facility] [facility] [address] [place] [address], * HEPATITIS C ANTIBODY IA WITH CONFIRMATION (01/05/2023 12:31 PM EDT)Component ValueRef RangeTest MethodAnalysis TimePerformed AtPathologist SignatureHep C Antibody METnvpdevhUjvrrinf38/30/2023 10:28 AM EDTCUNIVERSITY HOSPITALS BE[facility] LABComment:The result suggests no evidence of active infection with Hepatitis C virus. Should recent infectionbe suspected, repeat testing may be considered 4-6 weeks after this draw.Specimen (Source)Anatomical Location / Laterality Collection Method / VolumeCollection TimeReceived TimeBloodBLOOD SPECIMEN / UnknownVenipuncture / Goybdtj7501/05/2023 12:31 PM EDT01/05/2023 12:36 PM EDT Narrative Authorizing ProviderResult TypeResult StatusMargaret Kristin MDLABORATORYFinal ResultPerforming OrganizationAddressCity/State/ZIP CodePhone Number [facility] [address] [place] [phone] [address] from Last 3 Months or Most Recently Relevant to Health Maintenance Insurance Care Teams Team MemberRelationshipSpecialtyStart DateEnd Date Coleman Luz DO [address] [place], [place] [phone] PCP - GeneralInternal Medicine01/05/23 Melinda Verduzco APRN.DRYING OVEN ATTENDANT [address] [place] [address] [place] [address] ReferringOrthopedics11/24/22
--- OUTSIDE RECORDS SUMMARY | 2025-04-06 20:56 | XMS_ITS | Clinical Summary ---
Author Organization [facility] Address [address] [place] [address] Care Team Providers Care Accident Report Clerk Name Role Phone Coleman Luz Primary Care Provider [phone] Allergies Active AllergyReactionsCriticalityNoted DateCommentsPrednisoneHeadache,Other 07/27/2023 Other Reaction(s): [...] Problems ProblemNoted DateDiagnosed DateOSA (obstructive sleep apnea)09/19/2023 Pdyvjpacgss67/12/6385Isbvelt25/12/2024aytime dgyzlymylqtncug26/12/2024Snoring 09/19/2023trial jvlidkfxakgy12/12/9598Gvbymohhev99/12/2024oronary artery disease (CAD) dpmkycpp95/12/0735Rvobfoda86/12/2150Ikkapssnovpa01/12/2024 Family History Medical HistoryRelationNameCommentsNephrolithiasisMotherStrokeMotherpacemaker MotherRelationNameStatusCommentsFatherDeceasedMotherDeceased Social History Tobacco UseTypesPacks/DayYears UsedDateSmoking Tobacco: NeverSmokeless Tobacco: Never Tobacco Cessation:Counseling Given: Not Answered Sex and Gender InformationValueDate RecordedSex Assigned at BirthNot on file Legal VwbBput7906/21/2022 6:57 PM EDTGender IdentityNot on fileSexual Orientation Not on file Last Filed Vital Signs Vital SignReadingTime TakenCommentsBlood Btelakge578/8209/19/2023 10:17 AM EDT Mfdqv290509/19/2023 10:17 AM EDTTemperature--Respiratory Rate--Oxygen Saturation-- Inhaled Oxygen Concentration--Wranoe479 kg (243 lb)09/19/2023 10:17 AM EDTHeight 177.8 cm (5' 10 )09/19/2023 10:17 AM EDTBody Mass Index34.8709/19/2023 10:17 AM EDT Plan of Treatment Not on file Insurance Care Teams Team MemberRelationshipSpecialtyStart DateEnd Date Coleman Luz DO PCP - GeneralInternal Medicine09/19/23
--- OUTSIDE RECORDS SUMMARY | 2025-04-06 20:56 | XMS_ITS | Clinical Summary ---
Author Organization [facility] Address [address] [facility], [address] [place] [address] Care Team Providers Care Child Care Name Role Phone Nitesh Garcia PA-C Primary Care Provider [phone] Allergies Active AllergyReactionsCriticalityNoted DateCommentsPrednisoneHeadaches,Other (See Comments)Low07/27/2023 Other [...] by mouth5Active vitamin D (ERGOCALCIFEROL) 1.25 MG (44298 UT) CAPS capsule (take by mouth with food twice a week, ONE CAPSULE ON SUNDAY AND ONE ON SUNDAY) FOR A TOTAL OF 10WEEKS. Then once a week kduksqkcdl62/31/2025Active levothyroxine (SYNTHROID) 200 MCG tablet Take 1 tablet by mouth dailyActive magnesium oxide (MAG-OX) 400 MG tablet 1 tablet dailyActive spironolactone-hydroCHLOROthiazide (ALDACTAZIDE) 25-25 MG per tablet Take 1 tablet by mouth every blmnwuu65/31/2024Active valsartan (DIOVAN) 40 MG tablet Take 1 tablet by mouth daily/ctive gabapentin (NEURONTIN) 400 MG capsule Take 1 capsule by mouth 3 times daily for 30 days. 90 capsule ctive atorvastatin (LIPITOR) 80 MG tablet Take 1 tablet by mouth daily Every asugyaz51/23/2025Active dapagliflozin (FARXIGA) 5 MG tablet Take 1 tablet by mouth every /09/2025Active escitalopram (LEXAPRO) 20 MG tablet Take 1 tablet by mouth dailyActive HYDROcodone-acetaminophen (NORCO) 5-325 MG per tablet Take 1 tablet by mouth every 6 hours as needed for Pain.12/17/2024tive metoprolol succinate (TOPROL XL) 50 MG extended release tablet Take 1 tablet by mouth daily01/03/2025tive pantoprazole (PROTONIX) 40 MG tablet Take 1 tablet by mouth daily01/03/2025tive spironolactone (ALDACTONE) 25 MG tablet Take 1 tablet by mouth daily5Active valACYclovir (VALTREX) 500 MG tablet Take 1 tablet by mouth daily10/02/2024tive gabapentin (NEURONTIN) 300 MG capsule Take 1 capsule by mouth 3 times daily as needed (start at night) for up to 30 days. Intended supply: 30 days 90 capsule Discontinued tiZANidine (ZANAFLEX) 2 MG tablet Take 1 tablet by mouth 2 times daily as needed (pain) 20 tablet Expired Active Problems No known active problems Encounters DateTypeDepartmentCare PpjeWvqogmwldaq27/17/2025 10:00 AM ESTOffice Visit [facility] [address] [address] Austen Patel MD Spinal stenosis of lumbar region with neurogenic claudication (Primary Dx); Spondylolisthesis of lumbar sxdgep6303/18/2025Telephone [facility], a department of [address] [address] Austen Patel MD 03/17/2025Orders Only [facility] [address] [facility] [address] [place] [address] Sintia Barksdale APRN - MICHAEL 03/12/2025 9:00 AM ESTOffice Visit [facility] [address] [facility] [address] [place] [address] Sintia Barksdale APRN - OFFICE SERVICE COORDINATOR Chronic pain syndrome (Primary Dx); Lumbar eixrgwsckpdye64/23/2025 2:15 PM EST - 03/03/2025 11:59 PM ESTHospital Encounter [facility] [address] [place] [address] Spinal stenosis of lumbar region with neurogenic claudication; Arachnoiditis Discharge Disposition: Home or Self Care03/01/2025 12:59 PM EST - 03/03/2025 11:59 PM ESTHospital Encounter [facility] [address] [place] [address] Spinal stenosis of lumbar region with neurogenic claudication; Arachnoiditis Discharge Disposition: Home or Self Care02/12/2025 2:30 PM ESTInitial consult [facility] [address] [facility] [address] [place] [address] Deep Mendez DO Chronic pain syndrome (Primary Dx); Lumbar mtzhuizikkfbc15/05/2025 10:00 AM ESTOffice Visit [facility] a department of [facility] [address] [facility] [facility] [address] [place] [address] Austen Patel MD Spinal stenosis of lumbar region with neurogenic claudication (Primary Dx); Arachnoiditisfrom Last 3 Months Social History Tobacco UseTypesPacks/DayYears UsedDateSmoking Tobacco: NeverSmokeless Tobacco: Never Tobacco Cessation:Counseling Given: Not Answered Alcohol UseStandard Drinks/WeekCommentsYes0 (1 standard drink = 0.6 oz pure alcohol)35 (1 standard drink = 0.6 oz pure alcohol)Sex and Gender Information ValueDate RecordedSex Assigned at BirthNot on fileLegal GxnPrfo3005/19/2012 7:11 PM ESTGender IdentityNot on fileSexual OrientationNot on file Last Filed Vital Signs Vital SignReadingTime TakenCommentsBlood Rwsfihpa741/8012 8:59 AM EST Zvjld450803/12/2025 8:59 AM OIKOjhhquvbgjc38.7 ??C (98 ??F)03/12/2025 8:59 AM EST Respiratory Ydqb408205/26/2024 9:47 AM ESTOxygen Stodokwmsw41%03/12/2025 8:59 AM ESTInhaled Oxygen Concentration--Ylptjs085.2 kg (221 lb)03/25/2025 9:47 AM EST Zexyaq054.8 cm (5' 10 )03/25/2025 9:47 AM ESTBody Mass Index31.7103/25/2025 9:47 AM EST Plan of Treatment DateTypeDepartmentCare Team (Latest Contact Info)Rcynuxzaecs33/07/2026 3:45 PM ESTOffice Visit [facility] [address] [place] [address] [place] [address] Sintia Barksdale, HAND MOLDER - OFFICE SERVICE COORDINATOR [address] [place] [address] [address] [place] [address] Return in about 4 weeks (around 04/09/2025) for review meds and reassess pain 04/29/2025 11:30 AM ESTOffice Visit [facility] of [facility] [address] [place] [address] [place] [address] [place] [address] [address] [place] [address] Follow up for LumbarHealth MaintenanceDue DateLast MyetLxrhaddeQerfwi00/09/1970 Depression Pwapaj4812/17/1971HIV cpgjml3712/16/1974Hepatitis C mvxcek1112/16/1977 Diabetes yvpyyk6412/16/19943107Fgrxnsiwitq17/09/2005Colorectal Cancer Cclazm4112/16/2004 FIT/FOBT: Average risk12/16/2004Fecal-DNA (Cologuard): Average risk12/16/2004 Sigmoidoscopy/CT dssdreegnxcb08/09/2005Pneumococcal 50+ years Vaccine (1 of 1 - PCV)12/16/2009Shingles vaccine (1 of 2)12/16/2009Respiratory Syncytial Virus (RSV) or age 60 yrs+ (1 - Risk 60-74 years 1-dose series)2019Flu vaccine (#1)/, 04/05/2023, 02/06/2022, Additional history existsCOVID-19 Vaccine ( season)/06/2021, 06/25/2020, 06/04/2020nnual Wellness Visit (Medicare)02/04/2025DTaP/Tdap/Td vaccine (2 - Tdap)Hepatitis A vaccineAged OutNo longer eligible based on patient's age to complete this topicHepatitis B vaccineAged OutNo longer eligible based on [...] Procedure NamePriorityDate/TimeAssociated DiagnosisCommentsMRI LUMBAR SPINE W WO TKBAIZIIPgzoirr96/23/2025 2:51 PM EST Spinal stenosis of lumbar region with neurogenic claudication Arachnoiditis XR LUMBAR SPINE (MIN 4 VIEWS)Tzwrzah6603/01/2025 2:42 PM EST Spinal stenosis of lumbar region [...] stenosis. L5-S1: Disc bulge. Facet arthropathy. Laminectomy. Pvli-ko-jcklkdns spinal canal stenosis. Severe right and moderate [...] stenosis. L5-S1: Disc bulge. Facet arthropathy. Laminectomy. Uhoa-lc-tledcdnvbuvpzq canal stenosis. Severe right and moderate left foraminal stenosis. IMPRESSION: 1. Postoperative changes of L4-L5 and L5-S1 laminectomies. 2. Clumping of the cauda equina nerve roots at L5-S1 concerning for arachnoiditis. 3. Multilevel degenerative changes of the lumbar spine with severespinal canal stenosis from L1-L4 and high-grade foraminal stenosis from L3-S1as detailed above. Authorizing ProviderResult TypeResult StatusSamusami Patel MDIMPal MRI ORDERABLESFinal Result * XR LUMBAR SPINE (MIN 4 VIEWS) (03/01/2025 2:42 PM EST)Anatomical Region LateralityModalityT-spine, L-spine, PelvisComputed RadiographySpecimen (Source)Anatomical Location / LateralityCollection Method / VolumeCollection TimeReceived Time03/04/2025 11:02 PM EST Impressions 03/04/2025 11:07 PM EST 1. Degenerative disc disease and facet arthropathy. No translational instability evident. Narrative 03/04/2025 11:07 PM EST EXAM: 4 OR MORE VIEW(S) XRAY OF THE LUMBAR SPINE 03/01/2025 02:42:15 PM COMPARISON: 03/01/2025 CLINICAL HISTORY: Spinal stenosis of lumbar region with neurogenic claudication, Arachnoiditis. Reason for exam: assess stability. FINDINGS: LUMBAR SPINE: BONES: No acute fracture. Right convex thoracolumbar scoliosis. Slight retrolisthesis of L3 on L4 in the neutral position. Slight anterolisthesis of L4 on L5 in the neutral position. Slight retrolisthesis of L5 on S1 in the neutral position. No translational instability evident. Vertebral body heights are maintained. Sequelae of bilateral hiparthroplasties. Degenerative changes of the pelvis. Postoperative changes at the lower lumbar region. DISCS AND DEGENERATIVE CHANGES: Degenerative disc disease and facet arthropathy. SOFT TISSUES: No acute abnormality. There is atherosclerotic disease. Procedure Note Marcial Griffin MD - 03/04/2025 EXAM: 4 OR MORE VIEW(S) XRAY OF THE LUMBAR SPINE 03/01/2025 02:42:15 PM COMPARISON: 03/01/2025 CLINICAL HISTORY: Spinal stenosis of lumbar region with neurogenic claudication,Arachnoiditis. Reason for exam: assess stability. FINDINGS: LUMBAR SPINE: BONES: No acute fracture. Right convex thoracolumbar scoliosis. Slight retrolisthesis of L3 on L4 in the neutral position. Slight anterolisthesisof L4 on L5 in the neutral position. Slight retrolisthesis of L5 on S1 inthe neutral position. No translational instability evident. Vertebral body heights are maintained. Sequelae of bilateral hip arthroplasties. Degenerative changes of thepelvis. Postoperative changes at the lower lumbar region. DISCS AND DEGENERATIVE CHANGES: Degenerative disc disease and facet arthropathy. SOFT TISSUES: No acute abnormality. There is atherosclerotic disease. IMPRESSION: 1. Degenerative disc disease and facet arthropathy. No translationalinstability evident. Authorizing ProviderResult TypeResult StatusSamusami ANN DIAGNOSTIC IMAGING ORDERABLESFinal Result from Last [place] [address] Care Teams Team MemberRelationshipSpecialtyStart DateEnd Nitesh Garcia PA-C [address] [phone] PCP - GeneralNeurological Htfjpfl11/5/25
--- OUTSIDE RECORDS SUMMARY | 2025-04-06 20:58 | XMS_ITS | CCD ---
Author Organization [facility] Care Team Providers Care Research Staff Member Name Role Phone Pcp, No Primary Care Provider UnavailVitaliy Santoyo DO Primary Care Provider Sarai Mendez II Unavailable Jonathan Samano Unavailable Melinda Verduczo Unavailable DO Vitaliy Brower Primary Care Provider MD Sarai Mendez II Attending Provider [phone] DO Vitaliy Brower Attending Provider DO Vitaliy [...] Attending Provider MD Jonathan Samano Attending Provider [phone] Ball, DO Vitaliy Primary Care Provider MD Sarai Georges Attending Provider [phone] LOWELL [place] Emergency Provider Ball, DO Vitaliy Primary Care Provider MD Sarai Mendez II Attending Provider [phone] Melinda Verduczo CNP Unavailable Ball DO, Vitaliy E Primary Care Provider Ball, DO Vitaliy Primary Care Provider MD Sarai Mendez II Attending Provider Inocente, DO Vitaliy Primary Care Provider MD Sarai Mendez II Attending Provider Sukhjinder Montesinos Unavailable Inocente, DO Burks Primary Care Provider MD Sarai Mendez II Attending Provider [phone] RASHAD Verduzco Attending Provider CHHAYA WHATLEY Referring [...] Attending Provider RASHAD Verduzco Attending Provider [phone] PROVIDER, UNKNOWN Referring Unavailable INOCENTE VITALIY E [...] Care Provider Luba MITCHELL.Melinda RODRIGUEZ Unavailable InocenteDO Bursk Primary Care Provider MD Mehrdad Mcmanus Attending Provider [phone] MD Bird Kowalski Attending Provider [phone] DO Vitaliy Brower Primary Care Provider [...] Attending Provider Cosmo Guzman APRN Emergency Provider [phone] Dionisio DOHERTY, Chio Moreno Attending Provider Andrea DOHERTY, Sarai Antunez Attending Provider Winnie Farris DO Emergency Provider [phone] Godwin DOHERTY, Lydia Admit Provider Lydia Connelly [...] Munir Foote MD Other Provider Jose Luis [facility], Nicolle Blanco Other Provider [phone] BIRD KOWALSKI Attending Unavailable ANTONIO STEELE Referring Unavailable BALL, VITALIY E Primary Care Unavailable BIRD KOWALSKI Referring Unavailable BALL, VITALIY E Primary Care Unavailable Luba MITCHELL.[employer], Melinda Blake Unavailable Vitaliy Brower DO Primary [...] Care Provider Vitaliy Brower DO Attending Provider Sarai Mendez MD Attending Provider Marcela Ortiz CMA Attending Provider Unavailatul Connelly MD, Lydia Other Provider Ada Woodruff MD Attending Provider [phone] Fang Zhu MD Attending Provider Salinas Ascencio DO Admit Provider Tomy Cabello MD Attending Provider Radha Medina MD Emergency Provider Yaakov DO, Yazid Admit Provider Siomara Nuno DOzid Attending Provider [phone] Cosmo Guzman APRN Emergency Provider Vitaliy Brower [...] Care Provider Inocente DO, Vitaliy Attending Provider [phone] Inocente DO, Vitaliy Primary Care Provider [phone] Sarai Mendez MD Attending Provider [phone] Winnie hale DO Emergency Provider Inocente DO, [...] Attending Provider Inocente LIPSCOMB, Vitaliy Attending Provider [phone] Sarai Mendez MD Attending Provider [phone] sergio LIPSCOMB, Winnie Antunez Emergency Provider [phone] Sarai Mendez II Admitting Unavailabl e Sarai [...] Mary Ann Miller Consulting Unavailable Mary Ann Miller Consulting Unavailable Leonard, W Thaddeus Consulting Unavailable Yazmin, Reeves Consulting Unavailable Nehemiah Mcknight Consulting Unavail able Antonio Steele Consulting Unavailable Dutch Posadas Consulting Unavailab Geno Nevarez Consulting Unavailable Steele, Tami Consulting Unavailable Lul, Arnaldo Najeeb Consulting Unavailab ron Foote, Tarek Consulting Unavailable Jose Luis Nicolle L Consulting Unavailable Yaakov, Yazid Attending Unavailable Abby, Keyshaf Consulting Unavailable [facility] Unavailable Yaakov, Yazid Admitting Unavailable GodwinNathand Attending Unavailable Salvador Connellyamad Admitting Unavailable Mischler, Mary Ann Consulting Unavailable [facility] Unavailable Mary Ann Miller Consulting Unavailable Kathy Valle Consulting Unavailable Yazmin, Reeves Consulting Unavailable Nehemiah Mcknight Consulting Unavail able Keysha Steelef Consulting Unavailable Dutch Posadas Consulting Unavailab Geno Nevarez Consulting Unavailable Steele, Tami Consulting Unavailable Lul, Arnaldo Najeeb Consulting Unavailab ron Coronadoad, Tarek Consulting Unavailable Jose Luis Nicolle L Consulting Unavailable [facility] Unavailable Cosmo Guzman Attending Unavailable Cosmo Guzman Admitting Unavailable Will Zimmerman Attending UnavailWill Chicas Admitting Unavailabl e [facility] Unavailable Sarai Mendez II Attending Unavailabl jackie [facility] Unavailable Sarai Mendez II Admitting Unavailabl Bird Peterson Attending Unavailable [facility] Unavailable Bird Kowalski Admitting Unavailable [facility] Unavailable Chio Nichole Admitting Unavailable Chio Nichole Attending Unavailable Winnie Farris Attending Unavailable [facility] Unavailable Winnie Farris Admitting Unavailable Will Zimmerman DO Emergency Provider Allergies Allergy ClassificationReported Allergen(s)Allergy TypeDate of OnsetReaction(s) Facility (20 sources)Acetaminophen / oxyCODONEDrug AllergyUnknowSaint [facility] [employer] Other (20 sources)atorvastatinDrug Pctodgf34-69-2385Wrtmiyf, Unknown ReactionAult[facility] (20 sources)predniSONE; Translations: [PREDNISONE]Drug Vexvuyp01-21-1832Gdibm, HeadacheAultman [facility] Hospital (20 sources)SimvastatinDrug Ltpoind13-83-6287EltwfhcJboql [employer] Other (1 source)patient allergy list reviewed by nurse or physiciaPropensity to adverse qtkwgghiw72-74-6224Sfazvav:DoneNort [employer] Other (3 sources)AcetaminophenDrug Dxrysak46-19-5458Urbyofl ReactionAultman [facility] Hospital (3 sources)oxyCODONEDrug Gypsony32-82-6741Ihjtvke ReactionAultman Alliance Community Hospital Medications Current Medications MedicationDrug Class(es)DatesSig (Normalized)Sig (Original)0.5 ML semaglutide 0.5 MG/ML Auto-Injector [Wegovy] (15 sources)Start: 78-00-1690Stpos: 41-47-7992uyptgm 0.5 mL by subcutaneous injection every weekWegovy 0.25 MG/0.5ML 0.5 mL Subcutaneous weekly for 30 days Sep, ActiveAcetaminophen (20 sources)Start: 80-76-5632qxdr 1 tablet by mouth every six hours as needed acetaminophen (Tylenol) tablet 650 mgStart: 44-34-2175fnbe 2 tablets by mouth every eight hours for painAcetaminophen 500 MG 2 tablets for pain Orally every 8 hrs for 30 days Med to Bed Upon Discharge DOS: 02/13/2023 Jan, Active Start: 09-51-4583zhfn 2 tablets by mouth every eight hours for painAcetaminophen 500 MG 2 tablets for pain Orally every 8 hrs for 30 days MED TO BED UPON DISCHARGE. DOS: 07/04/2021 Jun, ActiveStart: 01-29-2017 End: 94-11-9694Qxrgrrqgfyehc (Tylenol Arthritis Pain) 650 mg Tablet Extended Release Discontinued 1300 MG PO Twicedaily January 28, 2017 11:00pm February 13, 2023 9:43amAeroChamber Mini Chamber - (8 sources)Start: 11-28-9007Iwmrj: 91-14-3833BohdOgkhwho Mini Chamber - Use w/ Albuterol MDI inhaled every 6 hours as needed for 30 days Active allopurinol 100 mg oral tablet (20 sources)Xanthine Oxidase InhibitorStart: 44-94-4335vbmf 2 tablets by mouth once dailyStart: 76-84-8982nzij 2 tablets by mouth onceallopurinol (ZYLOPRIM) 100 mg tablet Indications: Hyperuricemia , Idiopathic chronic gout of multiple sites without tophus Take 2 tablets by mouth every afternoon. 180 tablet 3 07/07/2024 ActiveStart: 01-03-2024 End: 44-85-4597ysnw 1 tablet by mouth once dailyAllopurinol 100 mg tablet Discontinued 0 .ROUTE .COMPLEX 90 3 January 03, 2024 1:35pm September 30, 2024 3:44pm TAKE 1 TABLET BY MOUTH EVERY DAYStart: 06-20-2021 End: 34-98-3304aaxo 1 tablet by mouth once daily in [...] sources)Platelet Aggregation Inhibitor, Nonsteroidal Anti-inflammatory Drug Start: 12-60-4706mtel 1 tablet by mouth once dailyStart: 97-78-6092ygem 81 mg by mouth once daily81 mg, oral, Daily, First dose on Sun01/30/24 at 0900, Phase II/On Unit, Do not crush, chew, or split.Start: 01-29-2024 End: 57-82-6085flta 324 mg by mouth mjsk661 mg, oral, Once, On Sun01/29/24 at 1000, For 1 dose, PreprocedureStart: 31-50-0677ixzd 1 tablet by mouth twice dailyAspirin 81 MG 1 tablet Orally BID for 35 days MED TO BED UPON DISCHARGE. DOS: 07/04/2021 Jun, ActiveStart: 01-29-2017 End: 86-49-4732tmoi 1 tablet by mouth once dailyAspirin 81 mg Tablet,Delayed Release (Dr/Ec) Discontinued 81 MG PO Daily January 28, 2017 11:00pmMa2024 2:20pm VT preventiontake 1 tablet by mouth two times weeklyaspirin 81 mg EC tablet Take 1 tablet (81 mg) by mouth 2 times a week. ActiveComment on above: Take 81 mg by mouth.atorvastatin 80 mg oral tablet (20 sources)HMG-CoA Reductase InhibitorStart: 63-35-9957furd 1 tablet by mouth once daily in the eveningAtorvastatin 80 mg Tablet Active 80 MG PO Every evening 30 30 September 28, 2024 11:00pm Complies with drug therapyStart: 09-19-2023 End: 93-54-3974pcdx 1 tablet by mouth once daily in the eveningAtorvastatin 80 mg tablet Discontinued 0 .ROUTE .COMPLEX 90 3 July 02, 2024 5:52am September 29, 2024 3:03am TAKE 1 TABLET BY MOUTH ONCE EVERY EVENINGStart: 01-29-2017 End: 72-68-1759ddwt 1 tablet by mouth once daily at bedtimeAtorvastatin (Lipitor) 80 mg Tablet Discontinued 80 MG PO Daily at bedtime January 28, 2017 11:00pm September 19, 2023 11:53am End: 39-34-0494hkhc 1 tablet by mouth three times weeklyatorvastatin 10 mg tablet Take 10 mg by mouth 3 times a WEEK. 0 01/05/2023 Discontinued (Course of therapy completed)Comment on above:Take 10 mg by mouth 3 times a WEEK.cefadroxil 500 mg oral capsule (10 sources)Cephalosporin AntibacterialStart: 16-55-4649jvjq 1 capsule by mouth every twelve hoursCefadroxil 500 MG 1 tablet Orally every 12 hrs for 7 days Med to Bed Upon Discharge DOS: 02/13/2023 Jan, ActiveStart: 92-38-5305argz 1 capsule by mouth every twelve hoursCefadroxil 500 MG 1 tablet Orally every 12 hrs for 7 days MED TO BED UPON DISCHARGE. DOS: Jun, 2021 Active celecoxib 200 mg oral capsule (20 sources)Nonsteroidal Anti-inflammatory DrugStart: 02-20-6876ccwd 1 capsule by mouth once dailyStart: 15-27-4764kryy 1 capsule by mouth twice dailycelecoxib (CELEBREX) 200 mg capsule Indications: Idiopathic chronic gout of multiple sites without tophus , Pseudogout involving multiple joints , Chronic pain of both knees Take 1 capsule by mouth two times a day. 180 capsule 3 09/13/2024 ActiveStart: 06-20-2021 End: 61-96-3743gkmk 1 capsule by mouth once dailyCelecoxib 200 mg capsule Discontinued 200 MG PO Daily June 27, 2023 11:00pm June 28, 2023 3:15pm Start: 47-41-4378iwpb 1 capsule by mouth every twelve hoursCelecoxib 200 MG 1 capsule with food Orally Twice a day for 30 day(s) MED TO BED UPON DISCHARGE. DOS: 07/04/2021 11 Jun, 2021 ActiveComment on above:Take 1 capsule by mouth every afternoon.cholecalciferol 0.05 mg oral tablet (1 source)Vitamin DStart: 42-88-7951kccv 1 tablet by mouth onceCholecalciferol (Vitamin D3) (D3 Dots) 50 mcg (2,000 unit) tablet Active 50 MCG PO every Sunday andJuly 12:00amdapagliflozin 5 mg oral tablet (20 sources)Sodium-Glucose Cotransporter 2 InhibitorStart: 01-16-2025 End: 63-67-7412lniz 1 tablet by mouth once daily in the morningDapagliflozin Propanediol (Farxiga) 5 mg tablet Active 5 MG PO Every morning February 4:18pm Complies with drug therapyStart: 10-01-2024 End: 94-44-8581pysp 1 tablet by mouth once dailyDapagliflozin Propanediol 10 mg Tablet Discontinued 10 MG PO Daily September 30, 2024 11:00pmJuly 2024 1:00pmdocusate sodium 100 mg oral capsule (1 source)Start: 76-84-5380xdfg 100 mg by mouth twice daily for dbircienckcn661 mg, oral, 2 times daily, First dose on Sun01/29/24 at 2100, Phase II/On Unit, Bowel Regimen - for prevention of constipation Hold for loose stoolsStart: 69-14-6484srsw 100 mg by mouth twice daily for uidrskyvlrcm516 mg, oral, 2 times daily, First dose on Sun01/29/24 at 2100, Phase II/On Unit, Bowel Regimen - f or prevention of constipation Hold for loose stoolsdocusate sodium 50 mg / sennosides, care home 8.6 mg oral tablet (10 sources)Start: 74-54-1484jpdr 2 tablets by mouth every twenty-four hours Senokot S 8.6-50 MG 2 tablets Orally Once a day for 30 days Med to Bed Upon Discharge DOS: 02/13/2023 Jan, ActiveStart: 83-62-2376xoww 2 tablets by mouth every twenty-four hoursSenokot S 8.6-50 MG 2 tablets Orally Once a day for 30 day(s) MED TO BED UPON DISCHARGE. DOS: 07/04/2021 Jun, Active dofetilide 0.125 mg oral capsule (20 sources)AntiarrhythmicStart: 12-12-2024 End: 26-39-8012azzx 1 capsule by mouth every twelve hoursDofetilide 125 mcg capsule Active 125 MCG PO Every 12 hours 60 30 January 12, 2025 2:03pm Complies with drug therapyergocalciferol 1.25 mg oral capsule (20 sources)Provitamin D2 CompoundStart: 07-09-2023 End: 10-47-8783snxochuhurmsco 50,000 unit capsule (VITAMIN D2, DRISDOL) Indications: Vitamin D deficiency (take bymouth with food twice a week, ONE CAPSULE ON SUNDAY AND ONE ON SUNDAY) FOR A TOTAL OF 10 WEEKS. Then once a week thereafter 24 capsule 1 07/07/2024 ActiveStart: 01-50-7450aijc 1 capsule by mouth every week as neededErgocalciferol 1.25 MG (76668 UT) 1 capsule Orally Once a Week for 60 days Nov, Not-Taking/PRNStart: 66-68-6052rrjp 1 capsule by mouth every weekVitamin D (Ergocalciferol) 1.25 MG (44384 UT) 1 capsule Orally once weekly for 8 weeks Mar,ctiveComment on above:(take by mouth with food twice a week, ONE CAPSULE ON SUNDAY AND ONE ON SUNDAY) FOR A TOTAL OF 8 WEEKS.escitalopram 20 mg oral tablet (20 sources)Serotonin Reuptake InhibitorStart: 98-12-1357ytsu 1 tablet by mouth once dailyEscitalopram Oxalate 20 mg tablet Active 0 .ROUTE .COMPLEX 90 1 December 10, 2024 7:57pm TAKE 1 TABLET BY MOUTH EVERY DAY Complies with drug therapyStart: 12-23-2023 End: 79-70-4012rcnt 1 tablet by mouth once dailyEscitalopram Oxalate 20 mg tablet Discontinued 0 .ROUTE .COMPLEX 90 1 June 14, 2024 4:03pm September 29, 2024 3:03am TAKE 1 TABLET BY MOUTH EVERY DAYStart: 06-29-2023 End: 46-54-3341byax 1 tablet by mouth once daily at bedtimeEscitalopram Oxalate 20 mg tablet Discontinued 20 MG PO Daily at bedtime December 08, 2024 11:00pm December 10, 2024 7:57pmStart: 06-28-2023 End: 12-29-1107ykij 1 tablet by mouth once dailyEscitalopram Oxalate 10 mg tablet Discontinued 0 .ROUTE .COMPLEX 90 1 June 28, 2023 2:06pm 2023 9:36am TAKE 1 TABLET BY MOUTH EVERY DAY FOR 90 DAYSStart: 08-09-2022 End: 84-21-9583atku 1 tablet by mouth once daily at [...] sodium 0.15 mg oral tablet (20 sources)l-ThyroxineStart: 24-46-9877saph 1 tablet by mouth once daily Levothyroxine 150 mcg tablet Active 0 .ROUTE .COMPLEX 90 March 20, 2024 9:44am TAKE 1 TABLETBY MOUTH EVERY DAY Complies with drug therapyStart: 06-20-2021 End: 45-07-4663wqtc 1 tablet by mouth once daily in the morningLevothyroxine (Synthroid) 150 mcg tablet Discontinued 150 MCG PO Every morning June 19, 2021 11:00pm March 20, 2024 9:44amStart: 01-29-2017 End: 74-63-6079rqki 1 tablet by mouth once dailyLevothyroxine (Synthroid) [...] TABLET BY MOUTH EVERY DAY Active End: 90-73-8228bczf 1 tablet by mouth once dailylevothyroxine (SYNTHROID) 175 mcg tablet Take 175 mcg by mouth once daily. 0 01/05/2023 Discontinued (Course of therapy completed)take 1 tablet by mouth every twenty-four hoursComment on above:Take 1 tablet by mouth every afternoon.Take 175 mcg by mouth once daily. Magic Mouthwash (5 sources)Magic Mouthwash Activemagnesium oxide 400 mg oral tablet (20 sources)Start: 38-38-3118xfnl 1 tablet by mouth once dailyComment on above: Take 400 mg by mouth.24 hr metoprolol succinate 50 mg extended release oral tablet (20 sources)beta-Adrenergic BlockerStart: 03-20-2024 End: 08-22-8274uuhr 1 tablet by mouth once dailyStart: 33-81-1951ajyz 1 tablet by mouth once dailyMetoprolol Succinate 50 mg tablet extended release 24 hr Active 0 .ROUTE .COMPLEX March 10:45am TAKE 1 TABLET BY MOUTH EVERY DAYStart: 40-58-1229lvpc 1 tablet by mouth once dailyMetoprolol Succinate 50 mg tablet extended release 24 hr Active 0 .ROUTE .COMPLEX March 20, 2024 9:45am TAKE 1 TABLET BY MOUTH EVERY DAYStart: 90-47-9794bzqb 1 tablet by mouth every hourmetoprolol succinate ER (TOPROL XL) 50 mg 24 hr tablet Take 1 tablet by mouth every afternoon. 12/29/2022 ActiveStart: 02-09-2021 End: 79-30-3641nsjm 1 tablet by mouth once daily in the morningMetoprolol Succinate 50 mg tablet extended release 24 hr Discontinued 50 MG PO Every morning June 19, 2021 11:00pm March 20, 2024 9:45amStart: 01-29-2017 End: 04-62-5459exkr 1 tablet by mouth once dailyMetoprolol Succinate (Toprol Xl) 25 mg Tablet Extended Release 24 Hr Discontinued 25 MG PO Daily January 28, 2017 11:00pm June 20, 2021 12:27pmMetoprolol Tartrate 25 MG (Prior Auth: Rx Ref#:[id number]) Oral for 90 ActiveComment on above:Take 1 tablet by mouth every afternoon.morphine sulfate 15 mg extended release oral tablet (10 sources)Opioid AgonistStart: 84-51-1171eieh 1 tablet by mouth every twelve hours for painMorphine Sulfate ER 15 MG 1 tablet for breakthrough pain only Orally every 12 hrs for 5 days Med toBed Upon Discharge DOS: 02/13/2023 Jan, ActiveStart: 80-22-9163ndir 1 tablet by mouth every twelve hours for pain Morphine Sulfate ER 15 MG 1 tablet for breakthrough pain only Orally every 12 hrs for 5 days MED TOBED UPON DISCHARGE. DOS: 07/04/2021 Jun, Active ondansetron 8 mg oral tablet (12 sources)Serotonin-3 Receptor AntagonistStart: 99-06-5412ytev 1 tablet by mouth three times daily as needed for nauseaOndansetron HCl 8 MG 1 tablet as needed for nausea Orally Three times a day for 10 days Med to Bed Upon Discharge DOS: 02/13/2023 Jan, ActiveStart: 55-70-5233mxgw 1 tablet by mouth three times daily as needed for nauseaOndansetron HCl 8 MG 1 tablet as needed for nausea Orally TID for 10 days MED TO BED UPON DISCHARGE. DOS: 07/04/2021 Jun, Activeondansetron ODT (Zofran-ODT) disintegrating tablet 4 mg (1 source)Start: 40-69-6734tvfd 1 tablet by mouth every eight hours as needed ondansetron ODT (Zofran-ODT) disintegrating tablet 4 mgoxyCODONE hydrochloride 5 mg oral tablet (10 sources)Opioid AgonistStart: 88-50-8543exzu 1 tablet by mouth every four hours as needed for painoxyCODONE HCl 5 MG 1 tablet as needed for pain Orally every 4 hrs for 10 days Med to Bed Upon Discharge DOS: 02/13/2023 Jan, ActiveStart: 72-09-8119dpfu 1 tablet by mouth every four hours as needed for painoxyCODONE HCl 5 MG 1 tablet as needed for pain Orally every 4 hrs for 10 days MED TO BED UPON DISCHARGE. DOS: 07/04/2021 Jun, Activepantoprazole 40 mg delayed release oral tablet (20 sources)Proton Pump InhibitorStart: 72-25-4910aolj 1 tablet by mouth once dailyStart: 07-01-2024 End: 03-05-8398hifw 1 tablet by mouth once dailyPantoprazole 40 mg tablet,delayed release (DR/EC) Discontinued 40 MG PO Daily 90 90 1 June 30, 2024 11:00pm January 03, 2025 7:37amStart: 52-69-1799udeoopaftdpk (ProtoNix) EC tablet 40 mgStart: 23-76-8579kuxs 1 tablet by mouth every twenty-four hours Protonix 20 MG 1 tablet Orally Once a day for 30 days Jan, Active paxlovid (300/100) 20 x 150 mg & 10 x 100mg tablet therapy pack (2 sources)Start: 11-61-6426Nkxlhaxo (300/100) 20 x 150 MG & 10 [...] 10 mL of Normal Saline.polyethylene glycol 3350 81583 mg powder for oral solution (10 sources)Osmotic LaxativeStart: 16-70-8165EjbcOcs 17 GM 1 packet mixed with 8 ounces of fluid Orally Once a day for 7 days Med to Bed Upon Discharge DOS: 02/13/2023 Jan, ActiveStart: 69-31-2081GbmdWmq 17 GM 1 packet mixed with 8 ounces of fluid Orally Once a day for 7 days MED TO BED UPON DISCHARGE. DOS: 07/04/2021 Jun, ActivepredniSONE 20 mg oral tablet (13 sources)Start: 01-06-5329vhcp 1 tablet by mouth once dailypredniSONE 20 MG 1 tablet Orally Daily w/ food for 7 days Jul, ActivepredniSONE Active rivaroxaban 10 mg oral tablet (16 sources)Factor Xa InhibitorStart: 01-31-2023 End: 27-28-9675zrem 1 tablet by mouth every twenty-four hoursXarelto 10 MG 1 tablet with food Orally Once a day for 35 days Med to Bed Upon Discharge DOS: 02/13/2023 Jan, ActiveXarelto ActiveComment on above:TAKE 1 TABLET BY MOUTH ONCE A DAY WITH FOODspironolactone 25 mg oral tablet (16 sources)Aldosterone AntagonistStart: 48-85-2930qnmPXGcu hydrochloride 50 mg oral tablet (11 sources)Opioid AgonistStart: 03-02-6792dmxp 1 tablet by mouth every six hours as sxpuoo43 mg, oral, Every 6 hours PRN, pain moderate (4-6), first line, Starting on Sun01/29/24 at 1458, Phase II/On Unit, If ordered PRN for pain, nurse is permitted to administer this medication for higher pain scores based on patient preference? YesStart: 86-91-7258tfag 1 tablet by mouth every six hours as needed for paintraMADol HCl 50 MG 1 tablet as needed for pain Orally every 6 hrs for 10 days Med to Bed Upon Discharge DOS: 02/13/2023 Jan, Active Start: 76-09-3156lqin 1 tablet by mouth every six hours [...] Nucleoside Analog DNA Polymerase InhibitorStart: 12-24-2023 End: 27-16-6278ikxj 1 tablet by mouth once dailyStart: 06-20-2021 End: 15-61-6010fjpg 1 tablet by mouth once daily in the morningValacyclovir 500 mg tablet Discontinued 500 MG PO Every morning June 19, 2021 11:00pm December 24, 2023 12:30pm cold soresComment on above:Take 1 tablet by mouth every afternoon.valsartan 40 mg oral tablet (20 sources)Angiotensin 2 Receptor BlockerStart: 11-19-2024 End: 58-24-6698lzec 1 tablet by mouth once dailyvalsartan (Diovan) 40 mg tablet Indications: Cardiomyopathy, ischemic Take 1 tablet (40 mg) by mouth once daily. 90 tablet 3 11/19/2024 11/19/2025 ActiveStart: 09-29-2024 End: 83-34-2641bsdp 1 tablet by mouth once dailyValsartan 40 mg Tablet Discontinued 40 MG PO Daily 30 07 04September 28, 2024 11:00pm October 08, 2024 1 :05pmStart: 09-08-2024 End: 82-37-2287Aoryxseme 160 mg Tablet Discontinued 80 MG PO Daily September 07, 2024 11:00pm September 09, 2024 9:12amStart: 08-13-2024 End: 93-83-1470jxzp 0.5 tablet by mouth in the morningvalsartan (Diovan) 160 mg tablet Take 0.5 tablets (80 mg) by mouth early in the morning.. 08/13/2024 11/19/2024 Discontinued (Discontinued by another clinician)Start: 08-13-2024 End: 20-85-5079ycsg 1 tablet by mouth once dailyValsartan 160 mg Tablet Discontinued 160 MG PO Daily 30 0 August 12, 2024 11:00pm September 08, 2024 10:58am Completed/Discontinued Medications MedicationDrug Class(es)DatesSig (Normalized)Sig (Original)acetaminophen 325 mg / oxyCODONE hydrochloride 5 mg oral tablet (20 sources)Opioid AgonistStart: 05-22-2022 End: 19-07-2779wjmz 1 tablet by mouth every eight hours as needed for pain Oxycodone-Acetaminophen (Percocet) 5-325 mg tablet Discontinued 1 TAB PO Q8H as needed for pain 10 3 0 May 22, 2022 January 26, 2023 10:02am Contusion of left shoulder Contusion of left shoulder, initial [id number] 200 actuat albuterol 0.09 mg/actuat metered dose inhaler (20 sources)beta2-Adrenergic AgonistStart: 06-28-2023 End: 42-34-0908bzuu 1 puff(s) by inhalation every six hoursAlbuterol Sulfate 90 mcg/actuation HFA aerosol inhaler Discontinued 2 PUFF INHALATION Every 6 hours June 27, 2023 11:00pm August 02, 2023 8:18amStart: 40-16-3028ivab 2 puff(s) by mouth every six hoursalbuterol HFA (PROVENTIL HFA, VENTOLIN HFA) 90 mcg/actuation inhaler inhale 2 puffs by mouth every 6 hours 09/16/2022 Active Start: 64-86-5643yugz 2 puff(s) by inhalation every six hoursAlbuterol Sulfate HFA 108 (90 Base) MCG/ACT 2 puffs Inhalation every 6 hours for 30 days August, ActiveStart: 02-02-6047isin 2 puff(s) by mouth every six hoursAlbuterol Sulfate HFA 108 (90 Base) MCG/ACT INHALE 2 PUFFS BY MOUTH EVERY 6 HOURS for 25 ActiveComment on above:inhale 2 puffs by mouth every 6 hoursALPRAZolam 0.5 mg oral tablet (20 sources)BenzodiazepineStart: 12-12-2022 End: 01-17-5978gqej 1 tablet by mouth once daily at bedtimeAlprazolam 0.5 mg tablet Discontinued 0.5 MG PO Daily at bedtime 90 90 July 01, 2024 12:57pm January 15, 2025 4:08pm Generalized anxiety disorder Generalized anxiety disorderStart: 70-25-6436IRQBKFwjae 0.5 MG TAKE 1 TABLET BY MOUTH EVERY DAY AT BEDTIME Orally Once A Day for 90 days ActiveStart: 35-23-8809vzrz 1 tablet by mouth once daily at bedtimeALPRAZolam 0.5 MG TAKE 1 TABLET BY MOUTH EVERY DAY AT BEDTIME for 30 Apr, ActiveStart: 10-25-2012 End: 21-79-3518ygsu 1 tablet by mouth once daily at bedtimeAlprazolam (Xanax) 0.25 mg Tablet Discontinued 0.25 MG PO Daily at bedtime January 28, 2017 11:00pm June 04, 2023 12:08pm insomniaComment on above:Take 0.5 mg by mouth daily at bedtime.Take 1 tablet by mouth at bedtime as needed.amoxicillin 500 mg oral capsule (20 sources)Penicillin-class AntibacterialStart: 04-07-2024 End: 48-59-3778Sxdljpkagtv 500 mg capsule Discontinued 2000 MG PO As Directed April 07, 2024 12:00am August 11, 2024 1:39pm SBE prophylaxisStart: 94-02-4363Sabgnzjfwyx 500 MG 6 po 1 hour prior to dental and 3 po 6 hours after dental Orally as directed for1 day Dec, Activeamoxicillin 875 mg / clavulanate 125 mg oral tablet (20 sources)Penicillin-class AntibacterialStart: 07-30-2024 End: 25-82-0501swll 1 tablet by mouth every twelve hoursAmoxicillin-Pot Clavulanate 875-125 mg tablet Discontinued 1 TAB PO Every 12 hours July 29, 2024 11:00pm August 11, 2024 1:39pmStart: 09-01-2023 End: 07-72-0069zcny 1 tablet by mouth twice dailyAmoxicillin-Pot Clavulanate 875-125 mg tablet Discontinued 1 TAB PO Twice daily 14 7 0 September 01, 2023 9:30am November 19, 2023 1:23pmapixaban 5 mg oral tablet (20 sources)Factor Xa InhibitorStart: 11-19-2024 End: 99-38-6279tjdk 1 tablet by mouth twice dailyApixaban (Eliquis) 5 mg tablet Discontinued 5 MG PO Twice daily December 08, 2024 11:00pm 2024 12:32pmStart: 08-13-2024 End: 98-02-0611gvfw 1 tablet by mouth every twelve hoursEliquis 5 mg tablet Take 1 tablet (5 mg) by mouth every 12 hours. 08/13/2024 11/19/2024 Discontinued (Discontinued by another clinician)Start: 08-13-2024 End: 03-72-6528cwyc 1 tablet by mouth twice dailyApixaban (Eliquis) 5 mg Tablet Discontinued 5 MG PO Twice daily 60 30 0 August 12, 2024 11:00pm September 29, 2024 3:03amStart: 12-19-2023 End: 70-30-8571iieo 1 tablet by mouth once daily at bedtimeApixaban (Eliquis) 5 mg tablet Discontinued 0 .ROUTE .COMPLEX 60 December 19, 2023 8:55pm Arsh ellison 2023 11:15am TAKE 1 TABLET BY MOUTH EVERY MORNING AND BEFORE BEDTIME FOR 30 DAYSStart: 05-18-2023 End: 84-34-1586xjch 1 tablet by mouth twice dailyApixaban 5 mg tablet Discontinued 5 MG PO Twice daily June 27, 2023 11:00pm December 19, 2023 8:55pmStart: 05-18-2023 End: 14-43-3783uytn 1 tablet by mouth once daily at [...] oral tablet (1 source)beta-Adrenergic BlockerStart: 10-25-2012 End: 72-53-1059wafq 1 tablet by mouth once dailyatenolol 25 mg tablet Take 1 tablet by mouth once daily. 0 10/25/2012 01/05/2023 Discontinued (Course of therapy completed)Comment on above:Take 1 tablet by mouth once daily.benzonatate 200 mg oral capsule (20 sources)Non-narcotic AntitussiveStart: 05-14-2024 End: 45-11-5464esrg 1 capsule by mouth three times dailyBenzonatate [...] tablet (20 sources)P2Y12 Platelet InhibitorStart: 08-13-2024 End: 01-80-8785rcou 1 tablet by mouth once dailyClopidogrel 75 mg Tablet Discontinued 75 MG PO Daily 30 30 0 August 12, 2024 11:00pm September 29, 2024 3:03am Start: 01-30-2024 End: 43-78-3362Midvtnzpahi 75 mg tablet Discontinued MG PO February 18, 2024 12:00am August 01, 2024 10:12am End: 57-45-5157mxxq 1 tablet by mouth once dailyclopidogrel (PLAVIX) 75 mg ORAL tablet Take one(1) tablet daily. 0 03/05/2023 Discontinued (Course of therapy completed)Comment on above:Take one(1) tablet daily.codeine phosphate 2 mg/ml / guaiFENesin 20 mg/ml oral solution (20 sources)Opioid AgonistStart: 03-17-2024 End: 00-29-5390fygr 1 mL by mouth every six hours as needed for coughCodeine- Guaifenesin 10-100 mg/5 mL liquid Discontinued 10 ML PO Every 6 hours as needed for cough 200 5 0 March 17, 2024 12:00am August 01, 2024 10:12am Cough Cough, unspecifiedStart: 03-17-2024 End: 75-65-5933cdhi 1 mL by mouth every six hours as needed for coughCodeine- Guaifenesin 10-100 mg/5 mL liquid Discontinued 10 ML PO Every 6 hours as needed for cough 200 5 March 17, 2024 1:00am August 01, 2024 11:12amStart: 43-44-6368ibwu 1 mL by mouth every six hours as needed for coughCodeine- Guaifenesin 10-100 mg/5 mL liquid Active 10 ML PO Every 6 hours as needed for cough 200 5 March 17, 2024 1:00amStart: 87-42-2740onyy 1 mL by mouth every six hours as needed for coughCodeine-Guaifenesin 10-100 mg/5 mL liquid Active 10 ML PO Every 6 hours as needed for cough 200 5 March 17, 2024 12:00amStart: 02-94-0719jbeg 10 mL by mouth once at bedtime as needed for coughguaiFENesin- Codeine 100-10 MG/5ML 10 mL as needed Orally q HS as needed for cough for 7 days August, Activecolchicine 0.6 mg oral capsule (20 sources)Start: 10-08-2024 End: 08-24-8720muho 1 capsule by mouth once dailyColchicine 0.6 mg capsule Discontinued 0.6 MG PO Daily October 07, 2024 11:00pm October 08, 2024 1:42pmStart: 08-02-2023 End: 63-40-2428kazz 1 capsule by mouth every other dayColchicine 0.6 mg capsule Discontinued 0.6 MG PO .every other day August 01, 2023 11:00pm 2023 8:21amStart: 31-77-1454mhcw 0.6 mg by mouth once dailyColchicine Active 0.6 MG PO Daily August 02, 2023 12:00amStart: 07-05-2023 End: 60-68-5705qlfg 1 tablet by mouth twice dailycolchicine 0.6 mg tablet Indications: Idiopathic chronic gout of multiple sites without tophus Vrrc9znk by mouth up to twice a day [...] mg oral tablet (20 sources)BenzodiazepineStart: 06-28-2023 End: 84-46-7065ohks 1 tablet by mouth once dailyDiazepam 5 mg tablet Discontinued 5 MG PO Daily June 27, 2023 11:00pm August 02, 2023 8:17am Start: 70-27-9364Xuamou 5 MG take 1 tablet 1/2 hour prior to MRI . May repeat if needed. Orally Jun, Activetake 1 tablet by mouth every twenty-four hoursdiazePAM 5 MG 1 tablet as needed Orally Once a day Activediclofenac sodium 0.01 mg/mg topical gel (20 sources)Nonsteroidal Anti-inflammatory DrugStart: 08-06-2024 End: 75-55-9175Iqhagnsxca Sodium 1 % gel Discontinued 2 GM TOPICAL .4-5 times a day as needed for knee pain 05 08 2April 2024 11:00pm September 29, 2024 3:03amStart: 21-87-5213Rwizuvxezb Sodium 1 % gel Active 2 GM TOPICAL .4-5 times a day as needed for knee pain 05 08August 06, 2024 12:00amdoxycycline hyclate 100 mg oral capsule (20 sources)Tetracycline-class DrugStart: 01-12-2025 End: 72-55-3981cjln 1 capsule by mouth twice dailyDoxycycline Hyclate 100 mg capsule Discontinued 100 MG PO Twice daily 20 10 0 January 11, 2025 11:00pm February 02, 2025 12:59pmStart: 12-26-2024 End: 85-58-1570rqup 1 capsule by mouth twice dailyDoxycycline Hyclate 100 mg capsule Discontinued 100 MG PO Twice daily 20 December 25, 2024 11:00pm January 07, 2025 12:32pmStart: 09-12-2024 End: 61-72-5570xxbz 1 capsule by mouth twice dailyDoxycycline Hyclate 100 mg capsule Discontinued 100 MG PO Twice daily September 11, 2024 11:00pm September 29, 2024 3:03amStart: 03-17-2024 End: 86-15-7098bsuk 1 capsule by mouth twice dailyDoxycycline Hyclate 100 mg capsule Discontinued 100 MG PO Twice daily May 02, 2024 2:47pm August 01, 2024 10:12amStart: 09-84-4173phzj 1 capsule by mouth every twelve hours Doxycycline Hyclate 100 MG 1 capsule Orally Twice a day for 7 days Mar, ActiveStart: 28-33-4063cysl 1 tablet by mouth every twelve hoursDoxycycline Hyclate 100 MG 1 tablet Orally Twice a day for 14 days Feb, ActiveStart: 56-06-5521xkpg 1 capsule by mouth twice dailyDoxycycline Hyclate 100 MG 1 capsule Orally twice daily for 10 days Jan, ActiveStart: 86-45-5203ogsi 1 capsule by mouth twice dailyDoxycycline Hyclate [...] (20 sources)Thiazide Diuretic, Aldosterone AntagonistStart: 09-08-2024 End: 66-66-8123wnyt 1 tablet by mouth once dailySpironolacton-Hydrochlorothiaz 25-25 mg tablet Discontinued 1 TAB PO Daily September 07, 2024 11:00pm October 01, 2024 11:06amStart: 76-24-8045xqcx 1 tablet by mouth once daily in the morning spironolacton-hydroCHLOROthiaz (ALDACTAZIDE) 25-25 mg per tablet TAKE 1 TABLET BY MOUTH EVERY DAY IN THE MORNING 90 tablet 1 04/08/2024 ActiveStart: 01-02-2023 End: 60-63-5142amvm 1 tablet by mouth once daily before mealtimespironolacton- hydrochlorothiaz (Aldactazide) 25-25 mg tablet Take 1 tablet (25 mg) by mouth once daily in the morning. Take before meals. 01/02/2023 ActiveComment on above: Take 1 tablet by mouth every morning.hydroCHLOROthiazide 25 mg / triamterene 37.5 mg oral capsule (20 sources)Potassium-sparing Diuretic, Thiazide DiureticStart: 06-20-2021 End: 55-78-5934aatf 1 capsule by mouth once daily in [...] (20 sources)Angiotensin 2 Receptor BlockerStart: 06-20-2021 End: 63-45-7768dxfn 1 tablet by mouth once daily in the morningIrbesartan 150 mg tablet Discontinued 150 MG PO Every morning June 19, 2021 11:00pm June 28, 2023 3:16pm htn24 hr isosorbide mononitrate 30 mg extended release oral tablet (16 sources)Nitrate VasodilatorStart: 09-29-2024 End: 92-86-0854xjwe 1 tablet by mouth once daily in the morning, then take 1 tablet by mouth every twenty-four hoursIsosorbide Mononitrate 30 mg Tablet Extended Release 24 Hr Discontinued 30 MG PO Every morning 30 30 September 28, 2024 11:00pm January 07, 2025 12:33pmlisinopril 10 mg oral tablet (20 sources)Angiotensin Converting Enzyme InhibitorStart: 01-29-2017 End: 45-82-9077lqml 1 tablet by mouth once dailyLisinopril 10 mg Tablet Discontinued 10 MG PO Daily January 28, 2017 11:00pm June 20, 2021 12:24pm take 1 tablet by mouth every twenty-four hoursLisinopril 20 MG 1 tablet Orally Once a day Activemeloxicam 15 mg oral tablet (20 sources)Nonsteroidal Anti-inflammatory DrugStart: 08-06-2024 End: 44-77-8800rpfh 1 tablet by mouth once dailyMeloxicam 15 mg tablet Discontinued 15 MG PO daily 30 September 01, 2024 11:00pm September 08, 2024 10: 58amStart: 11-17-2013 End: 79-14-7379mqqv 1 tablet by mouth once dailymeloxicam 7.5 mg tablet Take 1 tablet by mouth once daily. 30 tablet 1 11/17/2013 03/05/2023 Discontinued (Course of therapy completed)Comment on above:Take 1 tablet by mouth once daily. methylPREDNISolone 8 mg oral tablet (20 sources)CorticosteroidStart: 10-08-2024 End: 33-85-2925ggji 4 mg by mouth once dailyMethylprednisolone (Medrol) 8 mg tablet Discontinued 4 MG PO Daily October 07, 2024 11:00pm January 12, 2025 1:27pmStart: 86-74-2618iqax 1 tablet by mouth once dailyStart: 09-08-2024 End: 07-89-7149hyos 1 tablet by mouth twice dailyMethylprednisolone 4 mg tablet Discontinued 4 MG PO Twice daily September 07, 2024 11:00pm September 09, 2024 9:10am Start: 03-23-2024 End: 56-83-5038uhka 1 tablet by mouth twice dailyMethylprednisolone 4 mg tablet Discontinued 0 .ROUTE .COMPLEX 60 2 March 23, 2024 9:17am August 11, 2024 2:23pm TAKE 1 TABLET BY MOUTH TWICE A DAY FOR 30 DAYSStart: 03-23-2024 End: 82-85-1971wcte 1 tablet by mouth twice dailyMethylprednisolone 4 mg tablet Discontinued 4 MG PO Twice daily 60 30 5 March 23, 2024 12:00amDecember 2023 9:17amStart: 12-15-2023 End: 50-53-0336poyy 1 tablet by mouth once dailyMethylprednisolone 4 mg tablet Discontinued 4 MG PO Daily August 10, 2024 11:00pm August 19, 2024 3:09pmStart: 09-05-2023 End: 94-52-4614ahhsxyGZYWVQGgdnzz (MEDROL) 4 mg Indications: Elevated sed rate , Elevated C-reactive protein (CRP), PMR (polymyalgia rheumatica) (HCC) Day 1=6tabs with food, Day 2=5tabs, Day 3=4tabs, Day 4=3tabs, Day 5=2tabs, Day 6=1tab, No NSAIDs on med 21 tablet 1 09/05/2023 12/13/2023 DiscontinuedStart: 07-05-2023 End: 89-66-2835ppac 1 tablet by mouth twice dailyMethylprednisolone (Medrol) 4 mg tablet Discontinued 4 MG PO Twice daily July 31, 2023 11:00pm December 20, 2023 1:53pmStart: 67-68-5284rxiy 2 tablets by mouth once daily methylPREDNISolone (Medrol) 4 mg tablet Take 2 tablets (8 mg) by mouth once daily. 07/05/2023 ActiveStart: 07-05-2023 End: 45-93-9234zavi 1 tablet by mouth every other dayMethylprednisolone (Medrol) 4 mg tablet Active 4 MG PO Q2D August 01, 2023 12:00amStart: 06-28-2023 methylPREDNISolone (MEDROL) 4 mg Indications: PMR (polymyalgia rheumatica) (HCC) , Elevated sed rate , Elevated C-reactive protein (CRP) ALTERNATE 1 TABLET AND 1/2 TABLET BY MOUTH EVERY OTHER DAY 30 tablet 0 06/28/2023 ActiveStart: 06-62-0603sjenesPKJTDRDfjoxu (MEDROL) 2 mg tablet Indications: PMR (polymyalgia rheumatica) (HCC) , Elevated sed rate , Elevated C-reactive protein (CRP) Alternate 4mg and 2mg every other day 60 tablet 1 03/05/2023 ActiveStart: 11-23-2022 End: 98-65-4665uqwr 1 tablet by mouth once daily in [...] (20 sources)RNA Synthetase Inhibitor AntibacterialStart: 12-26-2024 End: 36-14-8839Rqqdqyjik 2 % ointment Discontinued 1 APPLIC TOPICAL Twice daily December 25, 2024 11:00pm January 07, 2025 12:33pmStart: 06-28-2023 End: 78-11-4134Kvviwiuvo 2 % ointment Discontinued 1 APPLIC TOPICAL Twice daily June 27, 2023 11:00pm August 02, 2023 8:18amStart: 59-29-4451Xssjfqcwk 2 % 1 application Externally Twice a day for 10 days Jan, Activenitroglycerin 0.4 mg sublingual tablet (16 sources)Nitrate VasodilatorStart: 09-29-2024 End: 70-94-5324Losofvrbcagmr 0.4 mg Tablet, Sublingual Discontinued 0.4 MG SUBLINGUAL Q5M as needed for Chest Pain25 30 3 September 28, 2024 11:00pm February 02, 2025 1:00pmomeprazole 40 mg delayed release oral capsule (20 sources)Proton Pump InhibitorStart: 07-01-2024 End: 39-33-4121lmhl 1 capsule by mouth once dailyOmeprazole 40 mg capsule,delayed release(DR/EC) Discontinued 40 MG PO Daily 90 90 0 June 30, 2024 11:00pm July 01, 2024 3:31pmtake 1 capsule by mouth once dailyOmeprazole 40 MG 1 capsule 30 minutes before morning meal Orally Once a day Active Semaglutide (10 sources)Start: 01-14-2025 End: 22-32-5935pooljx 0.25 mg by subcutaneous injection every week, then inject 0.5 mg by subcutaneous injection every weekSemaglutide (Ozempic) 0.25 mg or 0.5 mg (2 mg/3 mL) pen injector Discontinued 0 SUBCUT every week 328 January 14, 2025 11:50am January 16, 2025 8:00am subcutaneously every week; 0.25mg SC weekly x 4 then increase to 0.5mg SC weeklyStart: 01-14-2025 End: 91-07-5773ezweiy 0.25 mg by subcutaneous injection every week, then inject 0.5 mg by subcutaneous injection every weekSemaglutide (Ozempic) 0.25 mg or 0.5 mg (2 mg/3 mL) pen injector Discontinued 0 SUBCUT every week 328 January 14, 2025 12:50pm January 16, 2025 9:00am subcutaneously every week; 0.25mg SC weekly x 4 then increase to 0.5mg SC weeklyStart: 01-12-2025 End: 04-95-9334kuvbkt 0.25 mg by subcutaneous injection every week, then inject 0.5 mg by subcutaneous injection every weekSemaglutide (Ozempic) 0.25 mg or 0.5 mg (2 mg/3 mL) pen injector Discontinued 0 SUBCUT every week 328 January 11, 2025 11:00pm January 14, 2025 11:50am subcutaneously every week; 0.25mg SC weekly x 4 then increase to 0.5mg SC weeklyStart: 01-12-2025 End: 05-54-9165bzwczn 0.25 mg by subcutaneous injection every week, [...] tablet (20 sources)Phosphodiesterase 5 InhibitorStart: 06-28-2023 End: 80-88-4832lbol 1 tablet by mouth once daily as neededSildenafil 100 mg tablet Discontinued 100 MG PO Daily as needed for sexual activity June 27, 2023 11:00pm August 11, 2024 1:41pmStart: 58-03-9464fxns 1 tablet by mouth once daily as neededSildenafil Citrate 100 MG 1 tablet as needed Orally Once a day as needed for 30 days Sep, ActiveSod Picosulf-Mag Ox-Citric Ac (20 sources)Start: 12-06-2023 End: 31-27-9575xsmi 1 mL by mouth once daily in the morningSod Picosulf-Mag Ox- Citric Ac (Clenpiq) 10 mg-3.5 gram- 12 gram/175 mL solution Discontinued 175 ML PO Every morning 350 1 0 December 05, 2023 11:00pm December 31, 2023 9:38am Follow instructions given by officeStart: 12-06-2023 End: 34-50-0086lnjz 1 mL by mouth once daily in the morningSod Picosulf-Mag Ox- Citric Ac (Clenpiq) 10 mg-3.5 gram- 12 gram/175 mL solution Discontinued 175 ML PO Every morning 350 1 0 December 06, 2023 12:00am December 31, 2023 10:38am Follow instructionsgiven by officeStart: 12-06-2023 End: 76-72-5308azjw 1 mL by mouth once daily in the morningSod Picosulf-Mag Ox- Citric Ac (Clenpiq) 10 mg-3.5 gram- 12 gram/175 mL solution Discontinued 175 ML PO Every morning 350 1 December 05, 2023 11:00pm December 31, 2023 9:38am Follow instructions given by officeStart: 12-06-2023 End: 50-29-3086hsgx 1 mL by mouth once daily in the morningSod Picosulf-Mag Ox- Citric Ac (Clenpiq) 10 mg-3.5 gram- 12 gram/175 mL solution Discontinued 175 ML PO Every morning 350 1 December 06, 2023 12:00am December 31, 2023 10:38am Follow instructions given by officetriamcinolone acetonide 40 mg/ml injectable suspension (20 sources)CorticosteroidStart: 82-42-1962Apwhegq-40 August, 60 mgStart: 72-78-8946Scqxbpd-40 Feb, 40 mgStart: 19-02-0575Qbytk: 72-21-4943Iwekl: 37-19-2517Bbhftvx -40 mg May, 40 mgStart: 76-42-6657Ikeig: 05-07-2020 Kenalog -40 mg Apr, 40 mgStart: 56-14-0355Ismix: 20-95-2507Kppntex -40 mg Oct, 40 mgStart: 18-50-3282Jcaex: 71-01-0470Icplsve -40 mg May, 10 mgStart: 23-95-3899Oibkw: 45-48-1459Myzelom -40 mg Mar, 40 mg Start: 24-79-2135Qlxnk: 34-40-3096Ykopjvz -40 mg Apr,Start: 05-23-2016 Start: 49-48-2116Vmxqmmw -40 mg May, Problems Active Problems Problem ClassificationProblemDateDocumented DateEpisodic/ChronicAbdominal pain (20 sources)Indigestion; Translations: [Epigastric pain]Onset: 07-10-2016 57-64-7895JiloxmttBwpli bronchitis (20 sources)Acute bronchitis due to other specified organisms; Translations: [Acute bronchitis]Onset: 49-13-7368GpkfkqayBewmo posthemorrhagic anemia (1 source)Acute posthemorrhagic anemiaEpisodicAnxiety disorders (20 sources)Generalized anxiety disorder; Translations: [Generalized anxiety disorder]93-78-7598XtpokvmAmgubs; peripheral; and visceral artery aneurysms (15 sources)Aortic root dilatation; Translations: [Thoracic aortic ectasia] Onset: 700059-45-4809RymepxrTrsvzrqmb and vision defects (1 source)Visual impairment; Translations: [Unspecified visual loss]Chronic Cardiac dysrhythmias (20 sources)Persistent atrial fibrillation; Translations: [Other persistent atrial fibrillation]Onset: 04-18-2023 Resolved: 223926-42-2406NamlkvbLbdrurk on above:d/t medication from covid d/t medication [...] due to vascular fragility; Translations: [Other nonthrombocytopenic purpura]42-82-2084TtyjqheuIrfsoroujxqs of device; implant or graft (16 sources)Arteriosclerosis of autologous vein coronary artery bypass graft; Translations: [Atherosclerosis ofcoronary artery bypass graft(s) without angina pectoris]Onset: 11-13-2014 Resolved: 123762-57-0956QkgwnynSclsruvwqsre of device; implant or graft (1 source)Pain due to internal orthopedic prosthetic devices, implants and grafts, initial encounterEpisodicConditions associated with dizziness or vertigo (9 sources)Meniere's disease; Translations: [Meniere's disease, bilateral] ChronicCongestive heart failure; nonhypertensive (20 sources)Heart failure; Translations: [Heart failure, unspecified] Resolved: 433549-35-3598AvfqfkaPvfjhskc atherosclerosis and other heart disease (20 sources)Coronary arteriosclerosis; Translations: [Atherosclerotic heart disease of [place] coronary artery without angina pectoris]Onset: 10-29-2013 09-21-0390GbxaecfSdaqqqt on above:CABG x - 2014,PCI/stent (prior to 2014) PCI/stent (prior to 2014),CABG x - 2014,Stress NM: LVEF 33%, inferolateral fixed defect - 08/2024,LHC: LVEF 35%, patent grafts - 09/2024PCI/stent (prior to 2014)Coronary atherosclerosis and other heart disease (2 sources)Presence of aortocoronary bypass graft; Translations: [Presence of aortocoronary bypass graft]Onset: 10-15-4647EsquflyuNzlsrregxs and other anemia (3 sources)Anemia of chronic disease; Translations: [Anemia in other chronic diseases classified elsewhere]88-39-3430PrxjhriFmqjzscaji and other anemia (1 source)Anemia in other chronic diseases classified elsewhere; Translations: [Anemia of chronic disease]Onset: 49-22-3495XtwekayJuzrifzl mellitus with complications (12 sources)Hyperglycemia due to type 2 diabetes mellitus; Translations: [Type 2 diabetes mellitus with hyperglycemia]20-77-9116HbasqtiCcidfdef of mouth; excluding dental (1 source)GlossitisEpisodicDisorders of lipid metabolism (20 sources)Hyperlipidemia; Translations: [Hyperlipidemia, unspecified]Onset: 685603-17-9483MhbywbiMlmulmxieuwuhp and diverticulitis (20 sources)Diverticulitis of gastrointestinal tract; Translations: [Diverticulitis of intestine]89-97-7471PxelqtiX Codes: Adverse effects of medical drugs (14 sources)Adverse reaction to drug; Translations: [Adverse effect of unspecified drugs, medicaments and biological substances, initial encounter] Onset: 824028-00-4646FaryzxtxXfppyclukh disorders (20 sources)Gastro-esophageal reflux disease with esophagitis; Translations: [Gastroesophageal reflux disease with esophagitis without hemorrhage]06-28-2023 ChronicEssential hypertension (20 sources)Essential hypertension; Translations: [Essential (primary) hypertension]Onset: 36-73-6394ZwsojfxSasu and other crystal arthropathies (20 sources)Calcium pyrophosphate deposition disease; Translations: [Other chondrocalcinosis, unspecified site]Onset: 468066-21-9252NiiseaoJpuynlss; including migraine (4 sources)Migraine; Translations: [Migraine, unspecified, not intractable, without status migrainosus]92-02-0494IqsgwjaWdekgnpw; including migraine (13 sources)Headache; Translations: [Headache]35-84-9950KkmhvempWyfcr valve disorders (20 sources)Mitral and aortic incompetence; Translations: [Mitral valve insufficiency and aortic valve insufficiency]Onset: 12-29-2015 Resolved: 959945-68-6548LgydjiuOtcrs valve disorders (2 sources)Irregular heart beatOnset: 50-05-5414RowvqzqjDuiwbaniakh of prostate (1 source)Benign prostatic hypertrophy with outflow obstruction; Translations: [Hypertrophy (benign) of prostate with urinary obstruction and other lower urinary tract symptoms [LUTS]]Onset: 38-73-2168WvzvxeeSrlwe disorders and dislocations; trauma-related (1 source)Current tear of medial cartilage AND/OR meniscus of knee; Translations: [Tear of medial cartilage or meniscus of knee, current]Episodic Mood disorders (20 sources)Recurrent major depressive episodes, mild ; Translations: [Major depressive disorder, recurrent, mild]ChronicNausea and vomiting (20 sources)Nausea; Translations: [Nausea]09-03-7894AyevemtfYxfnzlkfzwt deficiencies (20 sources)Vitamin D deficiency; Translations: [Vitamin D deficiency, unspecified]Onset: 438982-56-0582IuzmidtFilwzmnqwtd deficiencies (2 sources)Cobalamin deficiency; Translations: [Deficiency of other specified B group vitamins]36-79-2806GcrtxzdkYnow wounds of extremities (11 sources)Puncture wound without foreign body of left index finger without damage to nail, subsequent encounter; Translations: [Laceration of lower limb] Resolved: 826417-72-3621YogewofsHrwlqcmofspbfh (20 sources)Osteoarthritis; Translations: [Unspecified osteoarthritis, unspecified site]Onset: 09-22-2013 Resolved: 736763-22-1543ZqdgandNdxzfijbefcd (5 sources)Primary osteoporosis; Translations: [Age-related osteoporosis without current pathological fracture]Onset: 307296-98-0374NyehhieWogyu aftercare (20 sources)Patient encounter status; Translations: [Aftercare following joint replacement surgery]09-01-3531VlhwqxaMaivt aftercare (14 sources)Aftercare following joint replacement surgery; Translations: [Aftercare following joint replacement]ChronicOther aftercare (3 sources)Other senior living (current) drug therapy; Translations: [OTH [facility] CURRENT DRUG THERAPY]Onset: 20-18-7385ZhydyckkSgxsr aftercare (2 sources)Long-term current use of drug therapy; Translations: [Other instructional facilitator (current) drug therapy]EpisodicOther aftercare (20 sources)Long-term current use of systemic steroid; Translations: [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 (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) use of 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]Onset: 557275-35-6922JwxcvzwhJirwq aftercare (8 sources)Long-term current use of anticoagulant; Translations: [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 (current) use of 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]59-98-9927LasgkcscNnesd aftercare (3 sources)H/O: high risk medication; Translations: [Other senior living (current) drug therapy]15-84-2148YclzigonEclhe circulatory disease (20 sources)Presence of other cardiac implants and grafts; Translations: [Other specified cardiac device in situ]Onset: 943002-93-7785RetwedbIjpfu circulatory disease (9 sources)History of cerebrovascular accident without residual deficits; Translations: [Personal history of transient ischemic attack (TIA), and cerebral infarction without residual deficits]EpisodicOther circulatory disease (1 source)Orthostatic hypotensionEpisodicOther circulatory disease (20 sources)Low blood pressure; Translations: [Hypotension, unspecified] 82-70-6159AioeikioRnvgx connective tissue disease (20 sources)History of total knee arthroplasty; Translations: [Presence of right artificial knee joint]ChronicOther connective tissue disease (20 sources)Artificial knee joint present; Translations: [Presence of right artificial knee joint]ChronicOther connective tissue disease (20 sources)Presence of left artificial hip joint; Translations: [Hip joint replacement]Onset: 08-17-2021 Resolved: 09-71-3185UvhtbmzDcnjr connective tissue disease (19 sources)Hip joint prosthesis present; Translations: [Presence of left artificial hip joint]ChronicOther connective tissue disease (20 sources)Polymyalgia rheumatica; Translations: [Polymyalgia rheumatica]Onset: 674922-42-0599WiyhxlkUzebo connective tissue disease (4 sources)Polymyalgia rheumatica; Translations: [PMR (polymyalgia rheumatica) (HCC)]Onset: 10-29-5609TnxrupiKsydp connective tissue disease (20 sources)History of total hip arthroplasty; Translations: [Presence of left artificial hip joint]83-09-7112CqioyurOpkhs connective tissue disease (20 sources)Presence of right artificial hip joint; Translations: [Total hip replacement Prosthesis]Onset: 71-53-7478HeyjowoEnysj connective tissue disease (1 source)Presence of left artificial knee jointChronicOther connective tissue disease (20 sources)History of revision of left total hip arthroplasty; Translations: [Presence of left artificial hip joint]41-00-6113DaaisoeQqjjx connective tissue disease (20 sources)History of total replacement of right hip joint; Translations: [Presence of right artificial hip joint]01-03-1575PnuobrcSegpw connective tissue disease (3 sources)Myalgia, unspecified site; Translations: [MYALGIA UNSPECIFIED SITE] Onset: 52-17-0157FawovoobDqyjr connective tissue disease (20 sources)Pain of bilateral hands; Translations: [Pain in right hand]Onset: 093605-16-3656ObvgztcgSwlcm connective tissue disease (20 sources)Swelling of hand; Translations: [Other specified soft tissue disorders]Onset: 094111-56-4477ShfgbuvdHuxni connective tissue disease (1 source)Pain in left lower legEpisodicOther connective tissue disease (18 sources)Disorder of rotator cuff; Translations: [Unspecified rotator cuff tear or rupture of right shoulder, not specified as traumatic]21-86-5780Bbmzosha Other connective tissue disease (1 source)Biceps tendinitis; Translations: [Bicipital tendinitis, right shoulder]80-55-6297VauhovniGefjc connective tissue disease (20 sources)Bicipital tendinitis, right shoulder; Translations: [Bicipital tenosynovitis]94-22-5185JbzaczdxYlwyu connective tissue disease (5 sources)Unspecified rotator cuff tear or rupture of right shoulder, not specified as traumatic; Translations: [Disorders of bursae and tendons in shoulder region, unspecified]10-45-8709ZcwimtkzNnjcw connective tissue disease (1 source)Bilateral weakness of upper limbs; Translations: [Other symptoms and signs involving the musculoskeletal system]49-54-9966QxdidljdOtanp connective tissue disease (12 sources)Other symptoms and signs involving the musculoskeletal system; Translations: [Other musculoskeletalsymptoms referable to limbs]Onset: 661382-07-5646QhqheiosGclft connective tissue disease (7 sources)Hand pain; Translations: [Pain in left hand]49-22-5395TmtrdzboAyscb connective tissue disease (4 sources)Pain of left hand; Translations: [Pain in left hand]08-04-2024 EpisodicOther connective tissue disease (20 sources)Trochanteric bursitis; Translations: [Trochanteric bursitis, right hip]53-16-3863SawqhoasSpzqj connective tissue disease (1 source)Ganglion, unspecified; Translations: [Cyst of hand]49-61-5756Smwjizqn Other disorders of stomach and duodenum (1 source)Disorder of function of stomach; Translations: [Dyspepsia and other specified disorders of functionof stomach]EpisodicOther fractures (20 sources)Fracture of rib; Translations: [Fracture of one rib, unspecified side, initial encounter for closedfracture]92-94-5036WkzygtwgZwtbw gastrointestinal disorders (20 sources)Irritable bowel syndrome; Translations: [Irritable bowel syndrome without diarrhea]ChronicOther gastrointestinal disorders (2 sources)Irritable bowel syndrome with diarrhea; Translations: [Irritable bowel syndrome with diarrhea]Onset: 03-47-2874WqkmzjaWypaj gastrointestinal disorders (20 sources)Swallowing painful; Translations: [Dysphagia, [...] [Other specified diseasesof blood and blood-forming organs]Onset: 40-52-8438JukosiqIuudu hematologic conditions (20 sources)Macrocytosis - no anemia; Translations: [Other specified diseases of blood and blood-forming organs]51-79-8676UlykfnrPkxci hematologic conditions (8 sources)ESR raised; Translations: [Elevated erythrocyte sedimentation rate] 55-61-2787HojunaioXkbvy hematologic conditions (1 source)Elevated erythrocyte sedimentation rate; Translations: [Elevated sed rate]Onset: 36-45-0659XunamejoHkfzn injuries and conditions due to external causes (2 sources)History of fall; Translations: [History of falling]EpisodicOther injuries and conditions due to external causes (2 sources)Systemic inflammatory response syndrome; Translations: [Systemic inflammatory response syndrome (SIRS) of non-infectious origin without acute organ dysfunction]18-02-1960ThctoyrlCrbrc injuries and conditions due to external causes (2 sources)Systemic inflammatory response syndrome (SIRS) of non-infectious origin without acute organ dysfunction; Translations: [Systemic inflammatory response syndrome, unspecified]26-40-4234DrlfipbxZatvc injuries and conditions due to external causes (20 sources)Contusion; Translations: [Other injury of unspecified body region, initial encounter]13-71-4984AenzpvufLguot liver diseases (1 source)Finding of creatine kinase level; Translations: [Abnormal levels of other serum enzymes]40-43-0487VqdicuzkVwjgr liver diseases (1 source)Enzyme level - finding; Translations: [Abnormal levels of other serum enzymes]26-58-9812EujkfjhbTghhm lower respiratory disease (20 sources)Cough; Translations: [Cough]89-80-5097TdthppuaIsfno male genital disorders (8 sources)Erectile dysfunction co-occurrent and due to arterial insufficiency; Translations: [Erectile dysfunction due to arterial insufficiency]ChronicOther male genital disorders (1 source)Erectile dysfunction due to arterial insufficiencyChronicOther male genital disorders (1 source)Impotence of organic origin; Translations: [Impotence of organic origin]Onset: 49-40-5175LylrqkdJakxh nervous system disorders (20 sources)Chronic pain; Translations: [Other chronic pain]25-99-5035Vdsgzoa Other nervous system disorders (10 sources)Other chronic pain; Translations: [Other chronic pain G89.29]Onset: 01-05-2021 Resolved: 27-31-7531LnnehdeIzpcp non-traumatic joint disorders (20 sources)Derangement of left shoulder joint; Translations: [Other specific joint derangements of left shoulder, not elsewhere classified]98-40-4070Sdbkdhp Other non-traumatic joint disorders (4 sources)Other specific joint derangements of left shoulder, not elsewhere classifiedChronicOther non-traumatic joint disorders (20 sources)Rotator cuff arthropathy of left shoulder; Translations: [Other specific arthropathies, not elsewhere classified, left shoulder]Onset: 895793-06-2022XrqtdkdVviri non-traumatic joint disorders (1 source)Other specific arthropathies, not elsewhere classified, left shoulder; Translations: [Rotator cuff arthropathy of left shoulder]Onset: 01-05-2023 ChronicOther non-traumatic joint disorders (5 sources)Pain in right hip; Translations: [Right hip pain M25.551]Onset: 01-05-2021 Resolved: 12-83-4327SpbocnrwNazzq non-traumatic joint disorders (1 source)Pain in left shoulderEpisodicOther non-traumatic joint disorders (1 source)Pain in right shoulderEpisodicOther non-traumatic joint disorders (2 sources)Arthralgia of the lower leg; Translations: [Pain in right knee] EpisodicOther non-traumatic joint disorders (2 sources)Pain in unspecified jointEpisodicOther non-traumatic joint disorders (20 sources)Pain in right knee; Translations: [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, lower leg]Onset: 481604-18-2424SkdzvbvqBewey non-traumatic joint disorders (8 sources)Hip pain; Translations: [Pain in right hip]Onset: 01-05-2023 28-85-0194VzldhousZlfah non-traumatic joint disorders (1 source)Swollen knee region; Translations: [Effusion, right knee]09-26-2024 EpisodicOther non-traumatic joint disorders (1 source)Effusion, right knee; Translations: [Bilateral knee swelling]Onset: 56-78-1057MemvolgyPjzxh non-traumatic joint disorders (1 source)Effusion, left knee; Translations: [Bilateral knee swelling]Onset: 58-51-8751WqcvygwjZznpb nutritional; endocrine; and metabolic disorders (20 sources)Obese class II; Translations: [Body mass index (BMI) 36.0-36.9, adult]Onset: 42-78-1759BanbkhwWyrtd nutritional; endocrine; and metabolic disorders (16 sources)Severe obesity; Translations: [Morbid (severe) obesity due to excess calories]Onset: 345142-11-3276XtzboqnCfkrh nutritional; endocrine; and metabolic disorders (20 sources)Body mass index 30+ - obesity; Translations: [Body mass index (BMI) 36.0-36.9, adult]Onset: 04-07-2016 Resolved: 449061-98-5007SlcrwnuHdsbm nutritional; endocrine; and metabolic disorders (1 source)Morbid (severe) obesity due to excess caloriesChronicOther nutritional; endocrine; and metabolic disorders (1 source)Body mass index (BMI) 36.0-36.9, adultChronicOther nutritional; endocrine; and metabolic disorders (2 sources)Simple obesity ; Translations: [Other obesity due to excess calories] Onset: 42-18-7978LrqolndHxbdk nutritional; endocrine; and metabolic disorders (3 sources)Obese class I; Translations: [Body mass index (BMI) 34.0-34.9, adult] Onset: 93-85-1217ZnjqowvJsotr nutritional; endocrine; and metabolic disorders (2 sources)Obesity; Translations: [Obesity, unspecified]ChronicOther nutritional; endocrine; and metabolic disorders (20 sources)Hypomagnesemia; Translations: [Hypomagnesemia]97-20-2670AnzcxhlUordt nutritional; endocrine; and metabolic disorders (1 source)HypomagnesemiaChronicOther nutritional; endocrine; and metabolic disorders (2 sources)Obesity, unspecified; Translations: [Obesity, unspecified]Onset: 36-39-5555TbyqgbkVxwni nutritional; endocrine; and metabolic disorders (2 sources)Body mass index (BMI) 32.0-32.9, adult; Translations: [Body mass index (BMI) 32.0-32.9, adult]Onset: 26-04-0986YsspfwqGqlvt nutritional; endocrine; and metabolic disorders (2 sources)Body mass index (BMI) 35.0-35.9, adult; Translations: [Body mass index (BMI) 35.0-35.9, adult]Onset: 63-47-8878TnyocmvTqnbz nutritional; endocrine; and metabolic disorders (4 sources)Hyperuricemia; Translations: [Hyperuricemia without signs of inflammatory arthritis and tophaceous disease]47-21-7007CptxwnuqFacbb nutritional; endocrine; and metabolic disorders (1 source)Hyperuricemia without signs of inflammatory arthritis and tophaceous disease; Translations: [Hyperuricemia]Onset: 56-48-8878SqpyjakuZfmhw skin disorders (2 sources)Mass of upper limb; Translations: [Localized swelling, mass and lump, left upper limb]83-86-5650QjdrlzolLiuhe upper respiratory disease (12 sources)Seasonal allergic rhinitis; Translations: [Other seasonal allergic rhinitis]ChronicOther upper respiratory disease (20 sources)Hoarse; Translations: [Dysphonia]EpisodicOther upper respiratory disease (1 source)DysphoniaEpisodicResidual codes; unclassified (20 sources)Obstructive sleep apnea syndrome; Translations: [Obstructive sleep apnea (adult) (pediatric)]27-78-2988AxucmspNxbwyatd codes; unclassified (9 sources)Obstructive sleep apnea (adult) (pediatric); Translations: [Obstructive sleep apnea (adult)(pediatric)]Onset: 61-89-5529RytyzfnCetpwjxr codes; unclassified (2 sources)Insomnia; Translations: [Insomnia, unspecified]EpisodicResidual codes; unclassified (14 sources)Never smoked tobacco; Translations: [Other specified health status] Onset: 083321-25-6560PwbvfohiBboholwiwo arthritis and related disease (20 sources)Inflammatory polyarthropathy; Translations: [Inflammatory polyarthropathy]ChronicSepticemia (except in labor) (2 sources)Sepsis; Translations: [Sepsis, unspecified organism]08-30-2023 EpisodicSkin and subcutaneous tissue infections (14 sources)Cellulitis of lower limb; Translations: [Cellulitis of left lower limb]EpisodicSpondylosis; intervertebral disc disorders; other back problems (20 sources)Lumbar spondylosis; Translations: [Spondylosis without myelopathy or radiculopathy, lumbar region]Onset: 12-19-2017 Resolved: 97-74-4273CahwzykRbuoxaklexo; intervertebral disc disorders; other back problems (20 sources)Cervicalgia; Translations: [Spinal stenosis of lumbar region]Onset: 21-29-2750XqvomotvPvtttbi and strains (20 sources)Strain of muscle(s) and tendon(s) of the rotator cuff of left shoulder, initial encounter; Translations: [Strain of muscle of right shoulder] Onset: 30-01-8735RlqellwqGezcovimdps injury; contusion (20 sources)Contusion of shoulder region; Translations: [Contusion of left shoulder, initial encounter]60-36-5810RvhlvirgDupovnlc lupus erythematosus and connective tissue disorders (1 source)Autoimmune disease; Translations: [Autoimmune disease, not elsewhere classified]Onset: 55-03-5502GvfnbxyFmsxdzq disorders (20 sources)Hypothyroidism; Translations: [Hypothyroidism, unspecified]Onset: 055309-23-3352XugsoaxFqltzkdkd cerebral ischemia (16 sources)Vertebrobasilar territory transient ischemic attack; 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]Onset: 303329-51-4615UabucwsGubhcptywwkq (1 source)Long-term current use of drug therapy; Translations: [Long-term (current) use of other medications]Onset: 82-48-7857Svpmwxvywpfp (9 sources)Other persistent atrial fibrillation; Translations: [Other persistent atrial fibrillation]Onset: 35-66-9233Kvdvrixsbyld (1 source)Hospital Follow-upOnset: 68-05-9861Jhztzabkpusx (1 source)Chronic atrial fibrillation, unspecified; Translations: [Chronic atrial fibrillation, unspecified]Onset: 08-90-3073Ltlhybaskipp (20 sources)A [facility] screening has identified you as FRAIL [...] Four Ways to Beat the Frailty Risk [email or web address] cycq-mw-lbfv-the-fra [email or web address] (1 source)Chronic bilateral low back pain without sciatica; Translations: [Chronic bilateral low back pain without sciatica]Onset: 14-61-4259Ureqgrxxnhnb (20 sources)Post hospital appointment. Please call to reschedule if needed. Unclassified (7 sources)You have been scheduled for a follow up appointment for the following date and time, please call to reschedule if needed.Unclassified (20 sources)EKG - we will call you with appointmentUnclassified (1 source)Right leg -85-8521Hyybq infection (2 sources)Molluscum contagiosum infection; Translations: [Molluscum contagiosum]Episodic Past or Other Problems Problem ClassificationProblemDateDocumented DateEpisodic/ChronicAcute and unspecified renal failure (20 sources)Acute renal failure syndrome; Translations: [Acute kidney failure, unspecified]Onset: 995826-34-9681ZlthslmnLwileqczi and vision defects (20 sources)Blurring of visual image; Translations: [Other visual disturbances] Onset: 581805-67-4288KzjeufciAzzoofflso associated with dizziness or vertigo (10 sources)Benign paroxysmal positional vertigo; Translations: [Benign paroxysmal vertigo, left ear]Onset: 136100-15-4285CgqzlenpWabtnjuoxb disorders (6 sources)Esophageal disorders; Translations: [Gastro-esophageal reflux disease with esophagitis, without bleeding]Onset: 35-86-4744Dzhzhslxbnodh and screening for infectious disease (20 sources)Vaccination given; Translations: [Encounter for immunization]Onset: 308711-98-0645GpocyfcbSuxuqvo and fatigue (3 sources)Other fatigue; Translations: [Malaise and fatigue]Onset: 02-02-2016 EpisodicNonspecific chest pain (20 sources)Chest pain; Translations: [Chest pain, unspecified]Onset: 09-29-2024 20-14-4986HtihkpqcFnihw aftercare (1 source)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 (current) use of 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; Translations: [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]Onset: 76-75-6963HlsgspmlFcfjp circulatory disease (1 source)Hypotension, unspecified; Translations: [Hypotension, unspecified] Onset: 90-60-3745NfkbnzwrFlyes connective tissue disease (3 sources)Pain in right hand; Translations: [Bilateral hand pain]Onset: 09-12-2021 Resolved: 57-41-1818WxsidvdyZreic connective tissue disease (1 source)Rupture of tendon of biceps, long head; Translations: [Nontraumatic rupture of tendons of biceps (long head)]Onset: 99-12-3583DbkistctCvekf connective tissue disease (2 sources)Nontraumatic rupture of rotator cuff of left shoulder; Translations: [Unspecified rotator cuff tearor rupture of left shoulder, not specified as traumatic]Onset: 98-62-7123CsigsnccNsomk connective tissue disease (9 sources)Pain in left hand; Translations: [Pain in limb]Onset: 01-05-2023 53-63-8896OdgnhaygRoudb connective tissue disease (1 source)Other specified soft tissue disorders; Translations: [Bilateral hand swelling]Onset: 99-04-3330AdxkxkmhNique gastrointestinal disorders (1 source)Diarrhea; Translations: [Diarrhea]Onset: 01-15-7604LxyejnxnVnray male genital disorders (2 sources)Hemospermia; Translations: [Hematospermia]Onset: 90-17-2721Sambrpse Other non-traumatic joint disorders (19 sources)Swelling of knee joint; Translations: [Effusion, unspecified knee] Onset: 02-45-1787PhcxtmmnHgwqe non-traumatic joint disorders (4 sources)Pain in left hip; Translations: [Left hip pain M25.552]Onset: 01-05-2021 Resolved: 36-37-3259MenttnkzIbksr non-traumatic joint disorders (4 sources)Shoulder joint pain; Translations: [Pain in right shoulder]Onset: 59-64-8250TuolrmkjNshjo non-traumatic joint disorders (13 sources)Pain in right hip joint; Translations: [Pain in right hip]Onset: 859381-79-6010ChaqgqybLdspn non-traumatic joint disorders (2 sources)Pain in left knee; Translations: [Chronic pain of both knees]Onset: 13-60-3833LeekcbocLigxy screening for suspected conditions (not mental disorders or infectious disease) (20 sources)Screening status; Translations: [Encounter for screening for malignant neoplasm of colon]Onset: 06-14-2018 Resolved: 33-32-2089WnyasjshMqdhmycb codes; unclassified (3 sources)Other specified health status; Translations: [Other specified conditions influencing health status]Onset: 62-56-4516QcmexflwRlqldvt (20 sources)Near syncope; Translations: [Syncope and collapse]Onset: 09-30-2024 01-62-0872MvczrdqlXombqovwtnyj (9 sources)Onset: 12-19-2023 Resolved: Viral infection (1 source)COVID-19 Results Test NameValueInterpretationReference RangeFacilityUS arterial duplex UE LTon 83-79-2977JJ arterial duplex UE LTPROTEST[facility] [place] [address] [place] [address] Ultrasound Report Signed Patient: Esme Kaminski MR#: [id number] : 1960 Acct:[id number] Age/Sex: 64 / M ADM Date: 02/17/25 Loc: ER Room: [place] [facility] [facility] [place]: Ordering Provider: Will Zimmerman [...] Rock MD,FACS,FSVS 02/18/2025 5:07 PM Dictation Location: [facility]04 Tech: Serena Medina Transcribed By: GWEN 02/18/251706 Dictated By: Tony Rock MD 02/18/251705 Signed By: 02/18/25 170[facility] Physician GroupAlbumin [Mass/volume] in Serum or Plasma by Bromocresol green (BCG) dye binding methoOrdered By: Will Zimmerman on 63-64-4630Ctzqxax BCG dye [Mass/Vol]4.2 g/dL3.5-5.7FDetwiler Memorial HospitalComplete Blood Count Auto DiffOrdered By: Will Zimmerman on 65-46-6493Zahdxvhyq (Bld) [#/Vol]0.1 10*3/uLNormal0.0-0.2 [facility] HospitalComment on above:Result Comment: PERFORMED BY: [facility] [address] [place] [address] PATHOLOGIST COASTAL AND ESTUARY SPECIALIST RYAN ALMARAZ M.D.Performed By: #### CMP, CBC ####[place] [id number] USABasophils/100 WBC (Bld)1.3 %Normal. [facility] HospitalComment on above:Performed By: #### CMP, CBC ####[place] [id number] [facility] Eosinophils (Bld) [#/Vol]0.0 10*3/uLNormal0.0-0.45[facility] HospitalComment on above:Performed By: #### CMP, CBC ####[place] [id number] USAEosinophils/100 WBC (Bld)0.5 % Normal.[facility] HospitalComment on above:Performed By: #### CMP, CBC ####[place] [id number] [place] Erythrocyte distribution width (RBC) [Ratio]15.3 %High12.0-14.8[facility] HospitalComment on above:Performed By: #### CMP, CBC ####[address] [address] [facility] Hematocrit (Bld) [Volume fraction]43.3 %Ebrtmj54.8-50.0[facility] HospitalComment on above:Performed By: #### CMP, CBC ####[address] [address] USAHemoglobin (Bld) [Mass/Vol]14.9 g/fFFjgcic96.0-17.0[facility] HospitalComment on above:Performed By: #### CMP, CBC ####[address] [address] USALymphocytes (Bld) [#/Vol]1.2 10*3/uLNormal1.00-4.8 [facility] HospitalComment on above:Performed By: #### CMP, CBC ####[place] [id number] [place] Lymphocytes/100 WBC (Bld)14.4 %Normal.[facility] HospitalComment on above:Performed By: #### CMP, CBC ####[place] [id number] [facility] HOSPITALMCH (RBC) [Entitic mass]36.6 ruAems64.5-35.2 [facility] HospitalComment on above:Performed By: #### CMP, CBC ####[address] StreetMCV (RBC) [Entitic vol]106.5 aZRgmh95.5-101[facility] HospitalComment on above:Performed By: #### CMP, CBC ####[place] [id number] USAMonocytes (Bld) [#/Vol]0.6 10*3/uLNormal 0.0-0.8[facility] HospitalComment on above:Performed By: #### CMP, CBC ####[place] [id number] [place] Monocytes/100 WBC (Bld)7.5 %Normal.[facility] HospitalComment on above:Performed By: #### CMP, CBC ####[place] [id number] USANeutrophils (Bld) [#/Vol]6.4 10*3/uLNormal1.8-7.7 [facility] HospitalComment on above:Performed By: #### CMP, CBC ####[place] [id number] [place] Neutrophils/100 WBC (Bld)76.3 %Normal.[facility] HospitalComment on above:Performed By: #### CMP, CBC ####[address] [address] USAPlatelet mean volume (Bld) [Entitic vol]8.8 fL Normal6.6-10.1FDetwiler Memorial HospitalComment on above:Performed By: #### CMP, CBC ####[address] [address] USAPlatelets (Bld) [#/Vol]192 10*3/wGUigifs849-763IgmrojqotAultman Alliance Community HospitalComment on above:Performed By: #### CMP, CBC ####[address] [address] USARBC (Bld) [#/Vol]4.07 10*6/uLNormal3.90-5.60[facility] HospitalComment on above: Performed By: #### CMP, CBC ####[place] [id number] USAWBC (Bld) [#/Vol]8.3 10*3/uLNormal4.1-10.5FDetwiler Memorial HospitalComment on above:Performed By: #### CMP, CBC ####[place] [id number] [facility] Complete Blood Count Auto Diffon 50-35-1766Uupw Corpuscular HGB Conc34.4 g/dL Tfdueb16.5-35.6The [facility] Physician GroupComment on above:Performed By: #### CMP, CBC ####[place] [id number] USAMonocytes/100 WBC (Bld)18.76 %Normal0.00-20.00The [facility] Comment on above:Performed By: #### CMP, CBC ####[address] [address] USANRBC%0.1 /100{WBC}Normal0-0.5The [facility] Physician GroupComment on above:Performed By: #### CMP, CBC ####[place] [address] [place] [address] USAWhite Blood Count8.3 [CFU]/mLNormal4.1-10.5The [facility] Physician GroupComment on above:Performed By: #### CMP, CBC ####[address] [address] USAComprehensive Metabolic Panelon 16-29-5419Psfcdds [Mass/Vol]4.2 g/dLNormal3.5-5.7The [facility] Physician GroupComment on above: Performed By: #### CMP, CBC ####[address] [address] USACreatinine Clr Calc Ngtccjcg55.15NormalThe [facility] Physician GroupComment on above:Result Comment: PERFORMED BY: [facility] [address] [place] [id number] PATHOLOGIST COASTAL AND ESTUARY SPECIALIST RYAN ALMARAZ M.D.Performed By: #### CMP, CBC ####[address] [address] USAGFR/1.73 sq M.predicted MDRD (S/P/Bld) [Vol rate/Area]mL/min/{1.73_m2}NormalThe [facility] Physician [facility] Regional HospitalComment on above:Performed By: #### CMP, CBC ####[address] [address] USAComprehensive Metabolic PanelOrdered By: Will Zimmerman on 84-88-0549Twlvryc/Globulin [Mass ratio]1.9 {ratio}[facility] Union HospitalComment on above:Performed By: #### CMP, CBC ####[address] [address] USAALP [Catalytic activity/Vol]80 U/ACjspkm57-629PqzvqjlfoAultman Alliance Community Hospital Comment on above:Performed By: #### CMP, CBC ####[address] [address] USAALT [Catalytic activity/Vol]29 U/L Normal7-52[facility] Community HospitalComment on above:Performed By: #### CMP, CBC ####[facility] Llz[address] [place] [address] USAAnion gap [Moles/Vol]11.7 mmol/LNormal6.0-15.0[facility] Community HospitalComment on above:Performed By: #### CMP, CBC ####[facility] Jie[address] [place] [address] USAAST [Catalytic activity/Vol]27 U/HBpjxbf93-17VymloojmuAultman Alliance Community HospitalComment on above:Performed By: #### CMP, CBC ####[facility] Dkf[address]47 [place] [address] USABilirubin [Mass/Vol]1.2 mg/dLHigh0.3-1.0[facility] Community HospitalComment on above:Performed By: #### CMP, CBC ####[facility] [place] [address] USACalcium [Mass/Vol]9.6 mg/dL Normal8.6-10.3FDetwiler Memorial HospitalComment on above:Performed By: #### CMP, CBC ####[facility] Mzd[address]28 [place] [address] USAChloride [Moles/Vol]103 mmol/WGzgghd78-985StvefxegnAultman Alliance Community HospitalComment on above:Performed By: #### CMP, CBC ####[facility] Aex[address] [place] [address] USACO2 [Moles/Vol]26.9 mmol/L Zucqcj94.0-31.0[facility] HospitalComment on above:Performed By: #### CMP, CBC ####[facility] [place] [address] USACreatinine [Mass/Vol]0.78 mg/dLNormal0.70-1.30[facility] HospitalComment on above:Performed By: #### CMP, CBC ####[facility] [place] [address] USAGlobulin (S) [Mass/Vol]2.2 g/dLNormalAultman Alliance Community HospitalComment on above: Performed By: #### CMP, CBC ####[address] [address] USAGlucose [Mass/Vol]151 mg/fWVtdq20-431KlklozrmuAultman Alliance Community HospitalComment on above:Result Comment: Random Glucose Reference Range is dependent on time and content of last meal. Glucose of more than 200 mg/dL in a nonstressed, ambulatory subject supports the diagnosis of Diabetes Mellitus. ADA recommended reference rangePerformed By: #### CMP, CBC ####[address] [address] USAADA recommended reference rangeRandom Glucose Reference Range is dependent on time and content of last meal. Glucose of more than 200 mg/dL in a nonstressed, ambulatory subject supports the diagnosisof Diabetes Mellitus.Potassium [Moles/Vol]3.6 mmol/LNormal3.5-5.1FDetwiler Memorial HospitalComment on above:Performed By: #### CMP, CBC ####[place] [address] USAProtein [Mass/Vol]6.4 g/dLNormal6.4-8.9[facility] HospitalComment on above:Performed By: #### CMP, CBC ####[place] [address] USASodium [Moles/Vol]138 mmol/L Lwmrnd306-674TwbrzhltoAultman Alliance Community HospitalComment on above:Performed By: #### CMP, CBC ####[place] [address] USAUrea nitrogen [Mass/Vol]7 mg/dLNormal7-25[facility] HospitalComment on above:Performed By: #### CMP, CBC ####[place] [address] USAGlomerular filtration rate [Volume Rate/Area] in Serum, Plasma or Blood by CreatinineOrdered By: Will Zimmerman on 65-73-8026Mgnzfcduyc filtration rate [Volume Rate/Area] in Serum, Plasma or Blood by Creatinine> 60.0 mL/MinAultman Alliance Community Hospital Leukocytes [#/volume] corrected for nucleated erythrocytes in Blood by Automated counOrdered By: Will Zimmerman on 09-12-7510KQE corrected for nucl RBC Auto (Bld) [#/Vol]8.3 10*3/uL4.1-10.5FDetwiler Memorial HospitalMCHC Auto (RBC) [Mass/Vol]Ordered By: Will Zimmerman on 63-67-8660TRRT (RBC) [Mass/Vol]34.4 g/dL32.5-35.6FDetwiler Memorial HospitalMonocyte distribution width [Entitic volume] in Blood by AutomatedOrdered By: Will Zimmerman on 31-08-0626Uoqbcbtk distribution width Auto (Bld) [Entitic vol] 18.76 %0.00-20.00[facility] HospitalNo Panel InformationOrdered By: Will Zimmerman on 74-99-7572Pctgamau Creatinine Clearance (Chem91.15 [facility] Community HospitalNucleated erythrocytes [Presence] in Blood by Automated countOrdered By: Will Zimmerman on 88-49-6556Aefwxqmlz RBC Auto Ql (Bld)0.1 /100{WBC}0-0.5FDetwiler Memorial HospitalPartial Thromboplastin Timeon 86-94-7459mXNC Coag (Bld) [Time]25.5 iOtflvy23.1-36.5The [facility] Physician GroupComment on above:Result Comment: A hematocrit value greater than 55% may lead to inaccurate results in coagulation testing. Patients having hematocrit values >55% require a special collection tube for coagulation studies. Please contact the laboratory at [phone] for redraw instructions. PERFORMED BY: [place] [address] PATHOLOGIST COASTAL AND ESTUARY SPECIALIST RYAN ALMARAZ M.D.Performed By: #### PT, PTT #### [place] [address] USAProthrombin Time INROrdered By: Will Zimmerman on 06-70-9256LOZ Coag (PPP) [Relative time]1.0 {INR}NormalAultman Alliance Community HospitalComment on above:Result Comment: INR Therapeutic Range [...] - 4.5Performed By: #### PT, PTT #### [facility] [address] [place] [id number] USAINR Therapeutic Range A) Pre- and Peroperative OAT started two weeks before surgery. NOT HIP SURGERY: 1.5 - 2.5 HIP SURGERY: 2 - 3B) Primary and secondary prevention of venous THROMBOSIS: 2 - 3C) Active venous thrombosis, pulmonary embolismand prevention of recurrent venous thrombosis: 2 - 3D) Prevention of arterial thromboembolismincluding patients with mechanical heart valves: 3 - 4.5PT Coag (PPP) [Time]11.4 sNormal9.0-12.9[facility] Community HospitalComment on above:Result Comment: A hematocrit value greater than 55% may lead to inaccurate results in coagulation testing. Patients having hematocrit values >55% require a special collection tube for coagulation studies. Please contact the laboratory at [phone] for redraw instructions.Performed By: #### PT, PTT #### [address] [address] hematocrit value greater than 55% may lead to inaccurate results in coagulation testing. Patientshaving hematocrit values >55% require a special collection tube for coagulation studies. Please contact the laboratory at [phone] for redraw instructions.aPTT in Platelet poor plasma by Coagulation assayOrdered By: Will Zimmerman on 35-79-5511eYLR Coag (PPP) [Time]25.5 s25.1-36.5FDetwiler Memorial HospitalComment on above:A hematocrit value greater than 55% may lead to inaccurate results in coagulation testing. Patientshaving hematocrit values >55% require a special collection tube for coagulation studies. Please contact the laboratory at [phone] for redraw instructions.Blood type and Indirect antibody screen panel (Bld)on 97-47-8922BSZ group Nom (Bld)AUnEast Ohio Regional HospitalBlood group antibody screen QlNegativeUnEast Ohio Regional HospitalD Ag Ql (Bld)Positive Wayne HospitalUnEast Ohio Regional HospitalABO group Nom (Bld)ANormSt. Mary's Medical Center, Ironton CampusComment on above: Performed By: #### 42721-3 #### RAPHAEL Blanco ([id number]) [facility] ([facility]) [address] [place], [place] [address]Oaurf group antibody screen QlNegativeNoHolzer Medical Center – JacksonComment on above:Performed By: #### 68521-0 #### RAPHAEL Blanco ([id number]) [facility] ([facility]) [address] [place], [place] [address]K Ag Ql (Bld)PositiveNoHolzer Medical Center – JacksonComment on above:Performed By: #### 19241-3 #### RAPHAEL Blanco ([id number]) [facility] ([facility]) [address] [place] [place], [place] [address]OPK W Auto Differential panel (Bld)on 96-37-5861Iroqnrtuu (Bld) [#/Vol]0.02 10*3/[facility] HospitalBasophils/100 WBC (Bld)0.3 %0.0 - 2.0 %Way[facility] HospitalEosinophils (Bld) [#/Vol] 0.03 10*3/[facility] HospitalEosinophils/100 WBC (Bld)0.4 %0.0 - 6.0 %Wayne HospitalErythrocyte distribution width (RBC) [Ratio]13.6 %11.5 - 14.5 %Wayne HospitalHematocrit (Bld) [Volume fraction]39.0 %Low41.0 - 52.0 %[facility] Hemoglobin (Bld) [Mass/Vol]14.1 g/dL13.5 - 17.5 g/dLWayne HospitalImcrittenton behavioral health granulocytes (Bld) [#/Vol]0.13 10*3/Marion HospitalImmature granulocytes/100 WBC (Bld)1.9 %High0.0 - 0.9 %[facility] on above:Immature Granulocyte Count (IG) includes promyelocytes, myelocytes and metamyelocytes but does not include bands. Percent differential counts (%) should be interpreted in the context of the absolute c ell counts (cells/UL).Interpretation and review of laboratory resultsAbnormal Wayne HospitalLymphocytes (Bld) [#/Vol]1.14 10*3/uLLow Wayne HospitalLymphocytes/100 WBC (Bld)16.3 %13.0 - 44.0 % [facility] HospitalH (RBC) [Entitic mass]36.4 vuMvbp74.0 - 34.0 pgUnCleveland Clinic South Pointe HospitalHC (RBC) [Mass/Vol]36.2 g/bJCgyd17.0 - 36.0 g/dLOhioHealth Hardin Memorial HospitalV (RBC) [Entitic vol]101 pVIhbl58 - 100 fLUniUniversity Hospitals Portage Medical CenterMonocytes (Bld) [#/Vol]0.54 10*3/[facility] HospitalMonocytes/100 WBC (Bld)7.7 %2.0 - 10.0 %Wayne HospitalNeutrophils (Bld) [#/Vol]5.14 10*3/[facility] on above:Percent differential counts (%) should be interpreted in the context of the absolute cell counts (cells/uL). Neutrophils/100 WBC (Bld)73.4 %40.0 - 80.0 %[facility] Nucleated RBC/100 WBC (Bld) [Ratio]0.0 %[facility] Platelets (Bld) [#/Vol]115 10*3/[facility] HospitalRBC (Bld) [#/Vol]3.87 10*6/Gen[facility] HospitalWBC (Bld) [#/Vol]7.0 10*3/[facility] HospitalUnEast [facility] Regional Hospital Basophils (Bld) [#/Vol]0.02 x10*3/[facility]edin Hospitalrmal0.00-0.10[facility] SpringfieldComment on above:Performed By: #### 54433-5 #### RAPHAEL Blanco ([id number]) [facility] ([facility]) [address] [place] [address]Fhekvqvnr/100 WBC (Bld)0.3 %Normal0.0-2.0UnWilson [address] HospitalComment on above:Performed By: #### 54995-0 #### RAPHAEL Blanco ([id number]) [facility] ([facility]) [address] [place] [address]Tadlawxsycx (Bld) [#/Vol]0.03 x10*3/uLNormal0.00-0.70 [facility] SpringfieldComment on above:Performed By: #### 20278-3 #### RAPHAEL Blanco ([id number]) [facility] ([facility]) [address] [place] [address]Nxsodmmmzrz/100 WBC (Bld)0.4 %Normal0.0-6.0Un[address] HospitalComment on above:Performed By: #### 91248-0 #### RAPHAEL Blanco ([id number]) [facility] ([facility]) [address] [place] [address]Yuyycvknand distribution width (RBC) [Ratio]13.6 %Normal 11.5-14.5Un[address] HospitalComment on above:Performed By: #### 72671-6 #### RAPHAEL Blanco ([id number]) [facility] ([facility]) [address] [place] [address]Twvdnckuoe (Bld) [Volume fraction]39.0 %Low41.0-52.0 [facility] SpringfieldComment on above:Performed By: #### 81767-3 #### RAPHAEL Blanco ([id number]) [facility] ([facility]) [address] [place] [address]Wrhczjpqib (Bld) [Mass/Vol]14.1 g/hWXuiydg75.5-17.5Un[address] HospitalComment on above:Performed By: #### 68737-6 #### RAPHAEL Blanco ([id number]) [facility] ([facility]) [address] [place] [address]Tjrdsaln granulocytes (Bld) [#/Vol]0.13 x10*3/uLNormal 0.00-0.70[facility] SpringfieldComment on above:Performed By: #### 89633-4 #### RAPHAEL Blanco ([id number]) [facility] ([facility]) [address] [place] [address]Zxedtyrq granulocytes/100 WBC (Bld)1.9 %High0.0-0.9Un[address] HospitalComment on above:Result Comment: Immature Granulocyte Count (IG) includes promyelocytes, myelocytes and metamyelocytes but does not include bands. Percent differential counts (%) should be interpreted in the context of the absolute cell counts (cells/UL).Performed By: #### 47165-5 #### RAPHAEL Blanco ([id number]) [facility] ([facility]) [address] [place] [address]Hfqquwiaqda (Bld) [#/Vol]1.14 x10*3/uLLow1.20-4.80Un[address] HospitalComment on above:Performed By: #### 70182-5 #### RAPHAEL Blanco ([id number]) [facility] ([facility]) [address] [place] [address]Gaccsjeoaes/100 WBC (Bld)16.3 %Snarzw64.0-44.0Un[address] HospitalComment on above:Performed By: #### 07045-2 #### RAPHAEL Blanco ([id number]) [facility] ([facility]) [address] [place] [address]NPF (RBC) [Entitic mass]36.4 pmQdbg35.0-34.0Un[address] HospitalComment on above:Performed By: #### 44818-1 #### RAPHAEL Blanco ([id number]) [facility] ([facility]) [address] [place], [place] [address]UFBJ (RBC) [Mass/Vol]36.2 g/jZZixi15.0-36.0[facility] SpringfieldComment on above:Performed By: #### 46707-3 #### RAPHAEL Blanco ([id number]) [facility] ([facility]) [address] [place], [place] [address]JPZ (RBC) [Entitic vol]101 zTFojp38-159[address] HospitalComment on above:Performed By: #### 16475-9 #### RAPHAEL Blanco ([id number]) [facility] ([facility]) [address] [place], [place] [address]Wwzueijcc (Bld) [#/Vol]0.54 x10*3/uLNormal0.10-1.00[facility] SpringfieldComment on above:Performed By: #### 65309-7 #### RAPHAEL Blanco ([id number]) [facility] ([facility]) [address] [place], [place] [address]Ghyrrqtvh/100 WBC (Bld)7.7 %Normal2.0-10.0[facility] SpringfieldComment on above:Performed By: #### 51070-1 #### RAPHAEL Blanco ([id number]) [facility] ([facility]) [address] [place], [place] [address]Jjusirbbbfc (Bld) [#/Vol]5.14 x10*3/uLNormal1.20-7.70 [facility] SpringfieldComment on above:Result Comment: Percent differential counts (%) should be interpreted in the context of the absolute cell counts (cells/uL).Performed By: #### 69366-0 #### RAPHAEL Blanco ([id number]) [facility] ([facility]) [address] [place], [place] [address]Hvlyvfatdzy/100 WBC (Bld)73.4 %Itowiq06.0-80.0[facility] SpringfieldComment on above:Performed By: #### 98499-3 #### RAPHAEL Blanco ([id number]) [facility] ([facility]) [address] [place] [address]Ogscnnoey RBC/100 WBC (Bld) [Ratio]0.0 /100 WBCsNormal0.0-0.0 [facility] SpringfieldComment on above:Performed By: #### 09539-8 #### RAPHAEL Blanco ([id number]) [facility] ([facility]) [address] [place] [address]Hyvsdnfug (Bld) [#/Vol]115 x10*3/cTDcq882-163BthmaqkdctWilson Street HospitalComment on above:Performed By: #### 00012-4 #### RAPHAEL Blanco ([id number]) [facility] ([facility]) [address] [place] [address]ITZ (Bld) [#/Vol]3.87 x10*6/uLLow4.50-5.90Un[address] HospitalComment on above:Performed By: #### 94700-6 #### RAPHAEL Blanco ([id number]) [facility] ([facility]) [address] [place] [address]ZVE (Bld) [#/Vol]7.0 x10*3/uLNormal4.4-11.3Un[address] HospitalComment on above:Performed By: #### 15486-4 #### RAPHAEL Blanco ([id number]) [facility] ([facility]) [address] [place] [address]Cjjrktacwga tissue factor inducedon 45-38-3185WN Coag (PPP) [Time]11.0 sNormal9.8-12.4Un[address] HospitalComment on above:Performed By: #### 5902-2 #### RAPHAEL Blanco ([id number]) [facility] ([facility]) [address] [place] [address]Cfbweiysdprmn metabolic 2000 panelon 98-75-7226Sbsomxk BCP dye [Mass/Vol]4.0 g/dL3.4 - 5.0 g/dLUnEast Ohio Regional HospitalALP [Catalytic activity/Vol]66 U/L33 - 136 U/[facility] HospitalALT With P-5'-P [Catalytic activity/Vol]22 U/L10 - 52 U/[facility] on above:Patients treated with Sulfasalazine may generate falsely decreased results for ALT.Anion gap [Moles/Vol]13 mmol/L10 - 20 mmol/L [facility] HospitalAST With P-5'-P [Catalytic activity/Vol]18 U/L9 - 39 U/[facility] HospitalBilirubin [Mass/Vol]1.2 mg/dL0.0 - 1.2 mg/dLUnEast Ohio Regional HospitalCalcium [Mass/Vol]9.2 mg/dL8.6 - 10.6 mg/dLUnEast Ohio Regional HospitalChloride [Moles/Vol]103 mmol/L98 - 107 mmol/[facility] HospitalCO2 [Moles/Vol]25 mmol/L21 - 32 mmol/L [facility] HospitalCreatinine [Mass/Vol]0.73 mg/dL0.50 - 1.30 mg/dLUnEast Ohio Regional HospitaleGFR- PINFUniVeterans Health Administration on above:Calculations of estimated GFR are performed using the 2020 CKD-EPI Study Refit equation without therace variable for the IDMS- Traceable creatinine methods. https://jasn.asnjournals.org/content//ASN.5473753369 Glucose [Mass/Vol]169 mg/nXQjjj30 - 99 mg/dLUnEast Ohio Regional Hospital Interpretation and review of laboratory resultsAbnormalUniUniversity Hospitals Portage Medical CenterPotassium [Moles/Vol]3.7 mmol/L3.5 - 5.3 mmol/[facility] HospitalProtein [Mass/Vol]6.3 g/dLLow6.4 - 8.2 g/dLUnEast Ohio Regional HospitalSodium [Moles/Vol]137 mmol/L136 - 145 mmol/[facility] HospitalUrea nitrogen [Mass/Vol]17 mg/dL6 - 23 mg/dLUnEast Ohio Regional HospitalUnEast Ohio Regional HospitalAlbumin BCP dye [Mass/Vol]4.0 g/dL Normal3.4-5.0[facility] SpringfieldComment on above: Performed By: #### 43437-6 #### RAPHAEL Blanco ([id number]) [facility] ([facility]) [address] [place], [place] [address]GPJ [Catalytic activity/Vol]66 U/KNnchdd86-247KaqokyqlmmWilson Street HospitalComment on above:Performed By: #### 05538-4 #### RAPHAEL Blanco ([id number]) [facility] ([facility]) [address] [place] [address]VFI With P-5'-P [Catalytic activity/Vol]22 U/NGgzrak44-28 [facility] SpringfieldComment on above:Result Comment: Patients treated with Sulfasalazine may generate falsely decreased results for ALT.Performed By: #### 64783-1 #### RAPHAEL Blanco ([id number]) [facility] ([facility]) [address] [place], [place] [address]Nnscz gap [Moles/Vol]13 mmol/YRgepzj78-18PuddwfynwjWilson [address] HospitalComment on above:Performed By: #### 57244-1 #### RAPHAEL Blanco ([id number]) [facility] ([facility]) [address] [place] [address]OSF With P-5'-P [Catalytic activity/Vol]18 U/LNormal9-39 [facility] SpringfieldComment on above:Performed By: #### 75316-9 #### RAPHAEL Blanco ([id number]) [facility] ([facility]) [address] [place] [address]Hjafhqfoi [Mass/Vol]1.2 mg/dLNormal0.0-1.2[facility] SpringfieldComment on above:Performed By: #### 59849-9 #### RAPHAEL Blanco ([id number]) [facility] ([facility]) [address] [place] [address] 156[address]Mzrwsub [Mass/Vol]9.2 mg/dLNormal8.6-10.6[facility] SpringfieldComment on above:Performed By: #### 71793-7 #### RAPHAEL Blanco ([id number]) [facility] ([facility]) [address] [place], [place] [address]Idridaqi [Moles/Vol]103 mmol/MMwnwkr24-813CuxwhwpvbgWilson [address] HospitalComment on above:Performed By: #### 50335-0 #### RAPHAEL QUINTERO L ([id number]) [facility] ([facility]) [address] [place], [place] [address]KS2 [Moles/Vol]25 mmol/XHqrszy41-70LokncawjdiWilson [address] HospitalComment on above:Performed By: #### 29297-9 #### RAPHAEL Blanco ([id number]) [facility] ([facility]) [address] [place] [address] 24[address]Yyccfubilh [Mass/Vol]0.73 mg/dLNormal0.50-1.30Un[address] HospitalComment on above:Performed By: #### 85112-2 #### RAPHAEL Blanco ([id number]) [facility] ([facility]) [address] [place] [address]35[address]Uemmotgmqr filtration rate>90Normal>60[address] HospitalComment on above:Result Comment: Calculations of estimated GFR are performed using the 2020 CKD-EPI Study Refit equation without the race variable for the IDMS-Traceable creatinine methods. https://jasn.asnjournals.org/content/early//ASN.5966564211Jnsgcimez By: #### 53826-5 #### RAPHAEL Blanco ([id number]) [facility] ([facility]) [address] [place], [place] [address]Mqnszlr [Mass/Vol]169 mg/sXDljv90-41EkxvmnphmxWilson [address] HospitalComment on above:Performed By: #### 39849-2 #### RAPHAEL Blanco ([id number]) [facility] ([facility]) [address] [place] [address] 49221Zdfmzbcfe [Moles/Vol]3.7 mmol/LNormal3.5-5.3[facility] SpringfieldComment on above:Performed By: #### 57854-9 #### RAPHAEL Blanco ([id number]) [facility] ([facility]) [address] [place] [address] 35[address]Wmwhout [Mass/Vol]6.3 g/dLLow6.4-8.2Un[address] HospitalComment on above:Performed By: #### 76280-7 #### RAPHAEL Blanco ([id number]) [facility] ([facility]) [address] [place] [address] 195[address]Fwbuhp [Moles/Vol]137 mmol/SGfkxrl074-441GtnnzxpfvxWilson [address] HospitalComment on above:Performed By: #### 79312-7 #### RAPHAEL Blanco ([id number]) [facility] ([facility]) [address] [place] [address] 413[address]Xfrd nitrogen [Mass/Vol]17 mg/dLNormal6-23[facility] SpringfieldComment on above:Performed By: #### 91917-9 #### RAPHAEL Blanco ([id number]) [facility] ([facility]) [address] [place] [address]75[address]DJZ 12 leadOrdered By: Savana Meza on 01-30-2025 Fgxme168 [facility] Work Phone: [phone] Wlkcl35uzkuwLwxhcdhynoUniversity Hospitals Portage Medical Center Work Phone: [phone] Elbsdinx651 [facility] Work Phone: [phone] Vtiffzgx990 [facility] Work Phone: [phone] Calculation(Darryltt)495 [facility] Work Phone: [phone] Qzaqgakzax999 [facility] Work Phone: [phone] Dcdx82yqhfxilVkghskocozSt. Vincent Hospital Work Phone: T Brqg552ttcxqnzVospvhpcpxWayne Hospital Work Phone: [phone] Fxszux380 [facility] Work Phone: [phone] Kduh404FEFBxkmwktfidBellevue Hospital Work Phone: [phone] Work Phone: [phone] 12 leadon 45-05-7542Ssghvo fibrillation with rapid ventricular response Inferior infarct (cited on or before 29-JAN-2024) Abnormal ECG When compared with ECG of 29-JAN-2024 09:38, Atrial fibrillation has replaced Sinus rhythm Nonspecific T wave abnormality now evident in Inferior leads T wave inversion now evident in Lateral leads See ED provider note for full interpretation and clinical correlation Confirmed by Savana Meza ([id number]) on 01/30/2025 6:13:32 AMSavana Jacobs PA-C - [...] and clinical correlation Confirmed by Savana Meza ([id number]) on 01/30/2025 6:13:32 AM [facility] Work Phone: ECU 12-LEADon [phone] 12-LEADVentricular Rate 82 QRS Duration 114 Q-T Interval 398 QTC Calculation(Bazett) 464 R Easton 83 T Easton -16 QRS Count 13 Q Onset 211 T Offset 410 QTC Fredericia 441 Diagnosis Atrial fibrillation with a competing junctional pacemaker Nonspecific T wave abnormality Abnormal ECG When compared with ECG of 30-JAN-2025 02:19, Criteria for Inferior infarct are no longer Present See ED provider note for full interpretation and clinical correlation Confirmed by Savana Meza ([id number]) on 01/30/2025 7:48:49 [facility]EC 12-LEADVentricular Rate 102 QRS Duration 114 Q-T Interval 380 QTC Calculation(Bazett) 495 R Easton 10 T Easton 122 QRS Count 16 Q Onset 214 [...] and clinical correlation Confirmed by Savana Meza ([id number]) on 01/30/2025 6:13:32 [facility] CenterMR INTERPRETATION OF OUTSIDE FILMSon 20-63-1615XH INTERPRETATION OF OUTSIDE FILMSInterpreted By: Nilson Mendez, STUDY: MR INTERPRETATION OF OUTSIDE FILMS; ; 01/30/2025 5:05 am INDICATION: Signs/Symptoms:Interpretation of outside film. 2nd opinion requested by the referring physician. Right lower extremity pain and weakness after epidural injection. COMPARISON: No prior cross-sectional evaluation of the lumbar spine is available at this institution at this time. ACCESSION NUMBER(S): [id number] ORDERING CLINICIAN: DIOGO EDGE TECHNIQUE: Outside institution [...] Nilson Mendez 01/30/2025 9:54 AM Dictation workstation: [id number] Medical Center – JacksonPT Coag (PPP) [Time]on 14-77-7810OBY Coag (PPP) [Relative time]1.0 {INR} 0.9 - 1.1Wayne HospitalInterpretation and review of laboratory resultsNoMetroHealth Main Campus Medical CenterUnEast Ohio Regional HospitalINR Coag (PPP) [Relative time]1.4Kjtboy2.9-1.1Kettering Health SpringfieldComment on above:Performed By: #### 5902-2 #### RAPHAEL Blanco ([id number]) [facility] ([facility]) [address] [place], [place] [address]Ztwgxul-CARpa 96-19-4845IZ Coag (PPP) [Time]11.0 [facility] East HospitalAppearance of UrineOrdered By: PROVIDER TEMP on 01-29-2025 Appearance (U)ClearNormalClearAultman Alliance Community HospitalComment on above: Order Comment: Name Collection Type:: Clean-Voided MidstreamPerformed By: #### PT, PTT #### [facility] [address] [place] [address] USABasic Metabolic Panelon 47-30-6170Atlqwjwaoq Clr Calc Kmgprizm639.71NoCone Health Wesley Long Hospital Physician GroupComment on above:Result Comment: PERFORMED BY: [facility] [address] [place] [address] PATHOLOGIST COASTAL AND ESTUARY SPECIALIST RYAN ALMARAZ M.D.Performed By: #### CBC, BMP ####[place] [place] [address] USAGFR/1.73 sq M.predicted MDRD (S/P/Bld) [Vol rate/Area]mL/min/{1.73_m2}NormalThe [facility] Physician [facility] Regional HospitalComment on above:Performed By: #### CBC, BMP ####[address] [place] [address] USABasophils [#/volume] in Blood by Automated count Ordered By: Winnie Farris on 41-18-5064Tgrxqojcx (Bld) [#/Vol]0.1 10*3/uLNormal 0.0-0.2FDetwiler Memorial HospitalComment on above:Result Comment: PERFORMED BY: [facility] [address] [place] [id number] PATHOLOGIST COASTAL AND ESTUARY SPECIALIST RYAN ALMARAZ M.D.Performed By: #### CBC, BMP ####[address] [place] [address] USABasophils/100 leukocytes in Blood by Automated countOrdered By: Winnie Farris on 14-25-3553Iwzfbdinl/100 WBC (Bld)0.7 %Normal.[facility] Alliance Community HospitalComment on above:Performed By: #### CBC, BMP ####[address] [address] USABilirubin Test strip Ql (U)Ordered By: SHAHID IZQUIERDO on 63-60-2059Jhgpksfyx Ql (U)NegativeNegativeAultman Alliance Community HospitalCalcium [Mass/volume] in Serum or PlasmaOrdered By: Winnie Farris on 99-66-3923Qnuphmq [Mass/Vol]9.5 mg/dL Normal8.6-10.3FDetwiler Memorial HospitalComment on above:Performed By: #### CBC, BMP ####[address] [address] USACarbon dioxide, total [Moles/volume] in Serum or PlasmaOrdered By: Winnie Farris on 01-54-5409WE9 [Moles/Vol]24.9 mmol/JAazkyb65.0-31.0A[facility] Alliance Community HospitalComment on above:Performed By: #### CBC, BMP ####[address] [address] [place] Chloride [Moles/volume] in Serum or PlasmaOrdered By: Winnie Farris on 01-29-2025 Chloride [Moles/Vol]104 mmol/BUmtrgv94-346EwpxdqhraAultman Alliance Community Hospital Comment on above:Performed By: #### CBC, BMP ####[place] [id number] USAColor of Urine by AutoOrdered By: SHAHID IZQUIERDO on 12-55-0886Stgyn (U)Light-yellowNormalYellowAultman Alliance Community HospitalComment on above:Order Comment: Name Collection Type:: Clean- Voided MidstreamPerformed By: #### PT, PTT #### [facility] [address] [place] [address] USAComplete Blood Count Auto Diffon 64-28-6016Pcik Corpuscular HGB Conc35.2 g/yCWtnbme56.5-35.6The [facility] Physician GroupComment on above:Performed By: #### CBC, BMP ####[place] [address] USAMonocytes/100 WBC (Bld)18.81 %Normal0.00-20.00 [facility] Physician George Regional HospitalComment on above:Performed By: #### CBC, BMP ####[place] [address] USANRBC% 0.1 /100{WBC}Normal0-0.5The [facility] Physician George Regional HospitalComment on above:Performed By: #### CBC, BMP ####[place] [address] USAWhite Blood Count7.7 [CFU]/mLNormal4.1-10.5The [facility] Physician George Regional HospitalComment on above:Performed By: #### CBC, BMP ####[place] [address] USACreatinine [Mass/volume] in Serum or PlasmaOrdered By: Winnie Farris on 40-30-8855Tjsfspapzw [Mass/Vol]0.81 mg/dL Normal0.70-1.30[facility] Community HospitalComment on above:Performed By: #### CBC, BMP ####[place] [id number] USAEosinophils [#/volume] in Blood by Automated countOrdered By: Winnie Farris on 38-77-4130Bwgdnvboubd (Bld) [#/Vol]0.0 10*3/uLNormal0.0-0.45[facility] Community HospitalComment on above:Performed By: #### CBC, BMP ####[address] [place] [address] [place] Eosinophils/100 leukocytes in Blood by Automated countOrdered By: Winnie Farris on 02-28-4237Xbfababxkow/100 WBC (Bld)0.3 %Normal.[facility] Community HospitalComment on above:Performed By: #### CBC, BMP ####[place] [address] USAErythrocyte distribution width [Ratio] by Automated countOrdered By: Winnie Farris on 48-90-2059Jsiwncfmcfr distribution width (RBC) [Ratio]15.4 %High12.0-14.8A[facility] Community HospitalComment on above:Performed By: #### CBC, BMP ####[place] [address] USAErythrocytes [#/volume] in Blood by Automated countOrdered By: Winnie Farris on 80-10-0444RGQ (Bld) [#/Vol] 4.18 10*6/uLNormal3.90-5.60[facility] HospitalComment on above: Performed By: #### CBC, BMP ####[place] [address] USAGlomerular filtration rate [Volume Rate/Area] in Serum, Plasma or Blood by CreatinineOrdered By: Winnie Farris on 01-29-2025 Glomerular filtration rate [Volume Rate/Area] in Serum, Plasma or Blood by Creatinine> 60.0 mL/MinAultman Alliance Community HospitalGlucose [Mass/volume] in Serum or PlasmaOrdered By: Winnie Farris on 44-96-2743Mupzzxv [Mass/Vol]145 mg/mHHpec37-181YwnhbsfsnAultman Alliance Community HospitalComment on above:ADA recommended reference rangeRandom Glucose [...] recommended reference rangePerformed By: #### CBC, BMP ####[facility] [place] [address] USAGlucose [Mass/volume] in Urine by Test stripOrdered By: PROVIDER TEMP on 85-66-0210Thcgepk Test strip (U) [Mass/Vol]>=1000 mg/dLHighNoSelect Medical Cleveland Clinic Rehabilitation Hospital, AvonHematocrit [Volume Fraction] of Blood by Automated countOrdered By: Winnie Farris on 32-02-5792Ynojrbwuqa (Bld) [Volume fraction]43.6 %Zvmbjs27.8-50.0[facility] Community HospitalComment on above:Performed By: #### CBC, BMP ####[facility] [place] [id number] [place] Hemoglobin Test strip Ql (U)Ordered By: PROVIDER TEMP on 80-92-5311Tuwoggxigz Ql (U)NegativeNegOhio State Harding HospitalHemoglobin [Mass/volume] in BloodOrdered By: Winnie Farris on 98-59-7517Lxsxyudfyi (Bld) [Mass/Vol]15.4 g/dL Desjtr84.0-17.0[facility] Community HospitalComment on above:Performed By: #### CBC, BMP ####[facility] [place] [id number] USAKetones [Presence] in Urine by Test stripOrdered By: PROVIDER TEMP on 56-21-4365Gwicvon Ql (U)1+NormalNegOhio State Harding HospitalComment on above:Order Comment: Name Collection Type:: Clean-Voided MidstreamPerformed By: #### PT, PTT #### [facility] [address] [place] [address] USALeukocyte esterase [Presence] in Urine by Test strip Ordered By: PROVIDER TEMP on 59-58-2723Itmqqdoxr esterase Test strip Ql (U) NegativeNormalNegativeFirelands Regional Medical CenterComment on above:Order Comment: Name Collection Type:: Clean-Voided MidstreamPerformed By: #### PT, PTT #### [facility] [address] [place] [address] USALeukocytes [#/volume] corrected for nucleated erythrocytes in Blood by Automated counOrdered By: Winnie Farris on 25-97-3972ZKK corrected for nucl RBC Auto (Bld) [#/Vol]7.7 10*3/uL4.1-10.5FDetwiler Memorial HospitalLeukocytes [#/volume] in Blood by Automated countOrdered By: Winnie Farris on 94-99-4738RMT (Bld) [#/Vol]7.7 10*3/uLNormal4.1-10.5FDetwiler Memorial HospitalComment on above:Performed By: #### CBC, BMP ####[place] [address] USALymphocytes [#/volume] in Blood by Automated countOrdered By: Winnie Farris on 01-29-2025 Lymphocytes (Bld) [#/Vol]1.1 10*3/uLNormal1.00-4.8[facility] HospitalComment on above:Performed By: #### CBC, BMP ####[place] [id number] USALymphocytes/100 leukocytes in Blood by Automated countOrdered By: Winnie Farris on 68-40-8182Ehldpstrbnt/100 WBC (Bld)14.4 %Normal.[facility] Community HospitalComment on above: Performed By: #### CBC, BMP ####[place] [id number] [facility] [Entitic mass] by Automated countOrdered By: Winnie Farris on 09-06-6122WHX (RBC) [Entitic mass]36.7 iePmrr65.5-35.2FDetwiler Memorial HospitalComment on above:Performed By: #### CBC, BMP ####[place] [id number] [facility] EDMONDHC Auto (RBC) [Mass/Vol]Ordered By: Winnie Farris on 73-43-1214OUIQ (RBC) [Mass/Vol] 35.2 g/dL32.5-35.6FDetwiler Memorial HospitalMCV [Entitic volume] by Automated countOrdered By: Winnie Farris on 61-85-5110ADO (RBC) [Entitic vol] 104.3 fVHmsu99.5-101A[facility] Alliance Community HospitalComment on above:Performed By: #### CBC, BMP ####[address] [address] USAMonocyte distribution width [Entitic volume] in Blood by Automated Ordered By: Winnie Farris on 81-73-0905Acgojdin distribution width Auto (Bld) [Entitic vol]18.81 %0.00-20.00A[facility] Community HospitalMonocytes [#/volume] in Blood by Automated countOrdered By: Winnie Farris on 01-29-2025 Monocytes (Bld) [#/Vol]0.5 10*3/uLNormal0.0-0.8[facility] Comment on above:Performed By: #### CBC, BMP ####[address] [address] USAMonocytes/100 leukocytes in Blood by Automated countOrdered By: Winnie Farris on 66-78-5985Evnxagvwk/100 WBC (Bld)6.3 %Normal.[facility] Community HospitalComment on above:Performed By: #### CBC, BMP ####[address] [address] USANeutrophils [#/volume] in Blood by Automated countOrdered By: Winnie Farris on 54-86-4357Lhvppypwfwd (Bld) [#/Vol]6.0 10*3/uLNormal1.8-7.7FDetwiler Memorial HospitalComment on above:Performed By: #### CBC, BMP ####[address] [address] USANeutrophils/100 leukocytes in Blood by Automated countOrdered By: Winnie Farris on 10-23-2025 Neutrophils/100 WBC (Bld)78.3 %Normal.[facility] HospitalComment on above:Performed By: #### CBC, BMP ####[address] [address] USANitrite Test strip Ql (U)Ordered By: SHAHID IZQUIERDO on 97-11-1968Rphftbp Ql (U)NegativeNegativeAultman Alliance Community HospitalNo Panel InformationOrdered By: Winnie Farris on 13-91-0921Oeiihhic Creatinine Clearance (Pvgg979.71A[facility] Community HospitalNucleated erythrocytes [Presence] in Blood by Automated countOrdered By: Winnie Farris on 67-59-1291Mslxkgtbi RBC Auto Ql (Bld)0.1 /100{WBC}0-0.5FDetwiler Memorial HospitalPlatelet mean volume [Entitic volume] in Blood by Automated count Ordered By: Winnie Farris on 75-56-5852Gbcxgznj mean volume (Bld) [Entitic vol] 8.9 fLNormal6.6-10.1FDetwiler Memorial HospitalComment on above:Performed By: #### CBC, BMP ####[address] [address] USAPlatelets [#/volume] in Blood by Automated countOrdered By: Winnie Farris on 63-65-8548Sliglreok (Bld) [#/Vol]133 10*3/xXOgt994-927QhvudzmfkAultman Alliance Community HospitalComment on above:Performed By: #### CBC, BMP ####[address] [address] USAPotassium [Moles/volume] in Serum or PlasmaOrdered By: Winnie Farris on 78-34-5054Vixrqhnni [Moles/Vol]3.9 mmol/LNormal3.5-5.1FDetwiler Memorial HospitalComment on above:Hemolysis is present at a level that could interfere with the result.Contact lab if redraw is requiredResult Comment: Hemolysis is present at a level that could interfere with the result. Contact lab if redraw is requiredPerformed By: #### CBC, BMP ####[address] [address] USAProtein Test strip (U) [Mass/Vol]Ordered By: PROVIDER TEMP on 30-72-0369Wngkose (U) [Mass/Vol] NegativeNegativeCity Hospitalerum or plasma anion gap determinationOrdered By: Winnie Farris on 19-13-7146Pcshi gap [Moles/Vol]11.0 mmol/LNormal6.0-15.0[facility] HospitalComment on above:Performed By: #### CBC, BMP ####[facility] [place] [address] USASodium [Moles/volume] in Serum or PlasmaOrdered By: Winnie Farris on 56-30-9906Oqwkmf [Moles/Vol]136 mmol/OXmyifx569-122QgsdmtkpbAultman Alliance Community HospitalComment on above:Performed By: #### CBC, BMP ####[address] [place] [address] USASpecific gravity Test strip (U) [Rel density]Ordered By: PROVIDER TEMP on 56-80-1027Vdjxdfre gravity (U) [Rel density]1.0261.001-1.030[facility] Community HospitalType and Screenon 69-76-1680GQJ and Rh group Nom (Bld)Blood group A Rh(D) positiveNoCone Health Wesley Long Hospital Physician GroupComment on above:Result Comment: PERFORMED BY: [facility] [address] [place] [address] PATHOLOGIST COASTAL AND ESTUARY SPECIALIST RYAN ALMARAZ M.D.Urea nitrogen [Mass/volume] in Serum or PlasmaOrdered By: Winnie Farris on 64-96-9743Wlyk nitrogen [Mass/Vol]19 mg/dLNormal7-25[facility] HospitalComment on above:Performed By: #### CBC, BMP ####[facility] [place] [address] [place] Urinalysison 49-22-8913Hzbvevjbq,UrineNegativeNormalNegativeThe [facility] Physician GroupComment on above:Order Comment: Name Collection Type:: Clean- Voided MidstreamPerformed By: #### PT, PTT #### [place] [id number] USAGlucose Ql (U)>=NormalNormalThe [facility] Physician Group Comment on above:Order Comment: Name Collection Type:: Clean-Voided Midstream Performed By: #### PT, PTT #### [address] [address] USANitrite,UrineNegativeNormalNegativeThe [facility] Physician GroupComment on above:Order Comment: Name Collection Type:: Clean-Voided MidstreamPerformed By: #### PT, PTT #### [place] [address] USAOccult Blood,UrineNegativeNormalNegativeThe [facility] Physician GroupComment on above:Order Comment: Name Collection Type:: Clean- Voided MidstreamResult Comment: PERFORMED BY: [place] [address] PATHOLOGIST COASTAL AND ESTUARY SPECIALIST RYAN ALMARAZ M.D.Performed By: #### PT, PTT #### [place] [address] USAProtein,UrineNegativeNormalNegativeThe [facility] Physician GroupComment on above:Order Comment: Name Collection Type:: Clean-Voided MidstreamPerformed By: #### PT, PTT #### [place] [address] USASpecificy [place],Urine1.533Smccqs3.001-1.030The [facility] Physician GroupComment on above:Order Comment: Name Collection Type:: Clean- Voided MidstreamPerformed By: #### PT, PTT #### [place] [address] USAUrobilinogen,UrineNormalNormalNormalThe [facility] Physician GroupComment on above:Order Comment: Name Collection Type:: Clean- Voided MidstreamPerformed By: #### PT, PTT #### [address] [address] USAUrobilinogen Test strip (U) [Mass/Vol]Ordered By: PROVIDER TEMP on 13-04-7529Qjudlvgivlnu (U) [Mass/Vol]Normal mg/dLNormalAultman Alliance Community HospitalpH of Urine by Test stripOrdered By: PROVIDER TEMP on 11-42-5877qT (U)5.0 [pH]Normal5.0-9.0[facility] HospitalComment on above:Order Comment: Name Collection Type:: Clean-Voided MidstreamPerformed By: #### PT, PTT #### [facility] [address] [place] [address] USAMagnetic resonance imaging reportOrdered By: Ap Paul on 04-49-6390Belnw reportPROTESTANT [facility] [address] [place] [address] MRI Report Signed Patient: Esme Kaminski MR#: [id number] : 1960 Acct:[id number] Age/Sex: 64 / M ADM Date: 5 Loc: MR Room: Type: [facility] Attending Dr: Jonathan Samano MD Copies to: Jonathan Samano MD~ Ordering Provider: Jonathan Samano MD Date of Service: 01/27/25 MR/MR lumbar spine wo/w con: M47.26 ([id number]) XR/XR pre/post mri xray: M47.26,G89.29, M54.50 MRI [...] Paul M.D. 01/27/2025 11:01 PM Dictation Location: [place] [address] Transcribed By: [facility] 01/27/252300 Dictated By: Ap Paul MD 01/27/252234 Signed By: 01/27/252300 [facility] Work Phone: xr pre/post mri xrayon 63-45-4753ZN pre/post mri xray [facility] [address] [place] [address] MRI Report Signed Patient: Esme Kaminski MR#: [id number] : 1960 Acct:[id number] Age/Sex: 64 / M ADM Date: 01/27/25 Loc: MR Room: Type: [facility] Attending Dr: Jonathan Samano MD Copies to: Jonathan Samano MD Ordering Provider: Jonathan Samano MD Date of Service: 01/27/25 MR/MR lumbar spine wo/w con: M47.26 ([id number]) XR/XR pre/post mri xray: M47.26,G89.29, M54.50 MRI [...] Ap Paul MD 01/27/252234 Signed By: 01/27/252300[facility] Physician GroupX-ray reportOrdered By: Matt Ferrell on 24-61-5649Jznwc reportPROTESTANT [facility] [address] [place] [address] XRay Report Signed Patient: Esme Kaminski MR#: [id number] : 1960 Acct:[id number] Age/Sex: 64 / M ADM Date: 5 Loc: [facility] Room: Type: [facility] Attending Dr: Sarai Mendez II, MD Copies to: Sarai Mendez MD~ Ordering Provider: Sarai Mendez MD Date of Service: 01/07/25 XR/XR hip RT min 2V(w/wo pelvis)*: Z96.641 - ([id number]) XR/XR knee RT 3V - NOT FOR [...] Matt Ferrell DO 01/07/251625 Signed By: 01/07/251628 [facility] HospitalXR hip RT min 2V(w/wo pelvis)*on 55-44-7084VX hip RT min 2V(w/wo pelvis)*[facility] [address] [place] [address] XRay Report Signed Patient: Esme Kaminski MR#: [id number] : 1960 Acct:[id number] Age/Sex: 64 / M ADM Date: 01/07/25 Loc: [facility] Room: Type: [facility] Attending Dr: Sarai Mendez II, MD Copies to: Sarai Mendez MD Ordering Provider: Sarai Mendez MD Date of Service: 01/07/25 XR/XR hip RT min 2V(w/wo pelvis)*: Z96.641 - ([id number]) XR/XR knee RT 3V - NOT FOR [...] Ferrell M.D. 01/07/2025 4:29 PM Dictation Location: [place] [address] Transcribed By: [facility] 01/07/25 1629 Dictated By: Matt Ferrell DO 01/07/25 1626 Signed By: 01/07/25 1629[facility] Physician GroupECG [address] 82-06-5051Ozjnmm sinus rhythm with nonspecific ST-T changes with QTc interval of [address] [facility] Work Phone: activated partial thromboplastin time (aPTT) in platelet poor plasma by coagulation aOrdered By: Casimiro Landaverde on 72-88-3808qRQR Coag (PPP) [Time]24.8 s22.3-36.2FDetwiler Memorial HospitalBasophils Auto (Bld) [#/Vol]Ordered By: Casimiro Landaverde on 52-18-8317Npjziwlki (Bld) [#/Vol]0.0 10 3/uL0.0-0.1FDetwiler Memorial HospitalBasophils/100 WBC Auto (Bld)Ordered By: Casimiro Landaverde on 04-96-4008Hlqkccvqt/100 WBC (Bld)0.3 %0.2-2.0[facility] HospitalEosinophils/100 WBC Auto (Bld)Ordered By: Casimiro Landaverde on 83-29-8842Ziocaaihiiy/100 WBC (Bld)0.1 %Low0.9-7.0[facility] Community HospitalErythrocyte distribution width Auto (RBC) [Ratio]Ordered By: Casimiro Akhil on 59-25-8081Goxhqgavgog distribution width (RBC) [Ratio]13.7 %11.0-15.0[facility] Community HospitalGlobulin Calc (S) [Mass/Vol]Ordered By: Casimirosal Landaverde on 37-74-7012Afxnxjkq (S) [Mass/Vol]3.4 g/dLAultman Alliance Community Hospital Glomerular filtration rate (GFR) estimation in non- AmericanOrdered By: Casimirosal Ladnaverde 33-12-5867IAF/1.73 sq M.predicted among non-blacks MDRD (S/P/Bld) [Vol rate/Area]mL/min/{1.73_m2}>=60 mL/min/1.73m 2FDetwiler Memorial HospitalHematocrit Auto (Bld) [Volume fraction]Ordered By: Casimiro Akhil on 16-28-6358Iphtxuxznw (Bld) [Volume fraction]43.4 %42.0-54.0[facility] HospitalHemoglobin [Mass/volume] in BloodOrdered By: Casimiro Akhil 80-65-7060Faqafymyxb (Bld) [Mass/Vol]15.2 g/dL14.0-18.0[facility] HospitalINR in Platelet poor plasma by Coagulation assayOrdered By: Casimirosal Landaverde on 08-10-5221PDY Coag (PPP) [Relative time]1.06 {INR}[facility] Medical CenterComment on above:DESIRED INR:2.0-3.0 CONDITIONS NOT LISTED BELOW2.5-3.5 FOR PROSTHETIC HEART VALVE REPLACEMENT2.5-3.5 RECURRENT THROMBOSIS Laboratory - Chemistry and Chemistry - challengeOrdered By: Casimiro Landaverde on 01-91-0079Ghhxnvnbd Ql (U)NegativeNEGATIVEAultman Alliance Community Hospital Glucose (U) [Mass/Vol]mg/dLAbnormalNEGATIVEAultman Alliance Community Hospital Ketones Ql (U)NegativeNEGATIVEAultman Alliance Community HospitalpH (U)7.0 [pH] 5.0-9.0City Hospitalpecific gravity (U) [Rel density]1.010 1.005-1.025A[facility] Community HospitalUrobilinogen Qn (U)0.2 {Abhijit'U}/dL0.2-1.0[facility] HospitalAlbumin [Mass/Vol]3.7 g/dL 3.4-5.0[facility] HospitalALP [Catalytic activity/Vol]88 U/L46-116 [facility] HospitalALT [Catalytic activity/Vol]58 U/L16-63 [facility] HospitalAST [Catalytic activity/Vol]20 U/L15-37 [facility] HospitalBilirubin [Mass/Vol]1.0 mg/dL0.2-1.0[facility] HospitalCalcium [Mass/Vol]9.0 mg/dL8.5-10.1FDetwiler Memorial HospitalChloride [Moles/Vol]100 mmol/X12-718DabkinearAultman Alliance Community HospitalCO2 [Moles/Vol]25.9 mmol/L21.0-32.0[facility] Creatinine [Mass/Vol]0.88 mg/dL0.70-1.30[facility] GFR/1.73 sq M.predicted MDRD (S/P/Bld) [Vol rate/Area]mL/min/{1.73_m2}>=60 mL/min/1.73m 2FDetwiler Memorial HospitalGlucose [Mass/Vol]322 mg/dLHigh 74-106[facility] HospitalPotassium [Moles/Vol]4.2 mmol/L3.5-5.1 [facility] HospitalProtein [Mass/Vol]7.1 g/dL6.4-8.2FSelect Medical Cleveland Clinic Rehabilitation Hospital, Edwin Shawodium [Moles/Vol]136 mmol/V429-909QajkpvajmAultman Alliance Community HospitalUrea nitrogen [Mass/Vol]17.0 mg/dL7.0-18.0[facility] HospitalUrea nitrogen/Creatinine [Mass ratio]19.3 mg/mgAultman Alliance Community HospitalLaboratory - Hematology and Cell countsOrdered By: Casimiro Landaverde on 99-43-1201Wqojgdxj granulocytes/100 WBC (Bld)1.9 %High0.0-0.5FDetwiler Memorial HospitalLaboratory - Specimen informationOrdered By: Casimiro Landaverde on 00-73-3456Qbnzwdwoal (U)CLEARCLEARFDetwiler Memorial HospitalColor (U)LT. YELLOWYELLOWAultman Alliance Community HospitalLaboratory - UrinalysisOrdered By: Casimiro Landaverde on 27-73-4154Johjiidoh esterase Test strip Ql (U)NegativeNEGATIVE [facility] HospitalMucus Ql (Urine sed)NONE SEENNONE SEENAultman Alliance Community HospitalNitrite Ql (U)NegativeNEGATIVEAultman Alliance Community HospitalProtein Ql (U)NegativeNEG/TRACEAultman Alliance Community HospitalLeukocytes [#/volume] corrected for nucleated erythrocytes in Blood by Automated coun Ordered By: Casimiro Landaverde on 03-42-6155GXK corrected for nucl RBC Auto (Bld) [#/Vol]11.8 10 3/uLHigh4.0-11.0[facility] HospitalLymphocytes Auto (Bld) [#/Vol]Ordered By: Casimiro Landaverde on 21-29-7797Usrnoqafjau (Bld) [#/Vol]1.2 10 3/uL1.2-3.8[facility] Community HospitalLymphocytes/100 WBC Auto (Bld) Ordered By: Casimiro Landaverde on 36-47-2441Ffvvdkpuheh/100 WBC (Bld)9.8 %Low20.5-60.0 [facility] Community HospitalMCH Auto (RBC) [Entitic mass]Ordered By: Casimiro Landaverde on 37-93-9309ICO (RBC) [Entitic mass]35.1 soSvwr53.9-34.0[facility] Community HospitalMCHC Auto (RBC) [Mass/Vol]Ordered By: Casimiro Landaverde on 72-81-0805DQRS (RBC) [Mass/Vol]35.0 g/dL29.9-35.2FDetwiler Memorial HospitalMCV Auto (RBC) [Entitic vol]Ordered By: Casimirosal Landaverde on 66-68-5619YGS (RBC) [Entitic vol] 100.2 aQKuxe20.0-94.0[facility] HospitalMonocytes Auto (Bld) [#/Vol]Ordered By: Casimirosal Landaverde on 35-85-0761Disxabbzo (Bld) [#/Vol]0.8 10 3/uL 0.3-0.8[facility] HospitalMonocytes/100 WBC Auto (Bld)Ordered By: Casimirosal Landaverde on 31-63-0370Llcaaawnq/100 WBC (Bld)6.7 %1.7-12.0[facility] Community HospitalNeutrophils Auto (Bld) [#/Vol]Ordered By: Casimirosal Landaverde on 2024 Neutrophils (Bld) [#/Vol]9.6 10 3/uLHigh1.4-6.5FDetwiler Memorial Hospital Neutrophils/100 WBC Auto (Bld)Ordered By: Casimirosal Landaverde on 2024 Neutrophils/100 WBC (Bld)81.2 %High43.0-75.0[facility] HospitalNo Panel InformationOrdered By: Casimirosal Landaverde on 51-22-5408Lwqli BacteriaNONE SEEN #/HPFNONE [facility] CenterUrine Culture ReflexedNOAultman Alliance Community HospitalUrine Occult BloodNegativeNEGATIVEAultman Alliance Community HospitalUrine Other CastsNONE SEEN #/LPFNONE [facility] CenterUrine Other CrystalsNone Seen #/HPFNone [facility] HospitalUrine RBCNONE SEEN #/HPF0-2FDetwiler Memorial HospitalUrine Squamous Epithelial CellsRARE #/LPFNONE/RAREAultman Alliance Community Hospital Urine WBCNONE SEEN #/HPFNONE [facility] CenterEosinophils # (Auto)0.0 10 3/uL0.0-0.7FDetwiler Memorial HospitalImmature Granulocyte # (Auto)0.22 10 3/uLHigh0.00-0.03[facility] Community HospitalPlatelet mean volume Auto (Bld) [Entitic vol]Ordered By: Casimirosal Landaverde on 15-62-3685Hxqwamuw mean volume (Bld) [Entitic vol]10.4 fL9.5-13.5FDetwiler Memorial Hospital Platelets Auto (Bld) [#/Vol]Ordered By: Casimiro Landaverde on 10-29-8752Wjntyqvfw (Bld) [#/Vol]167 10 3/gQ308-558AcxvozlktAultman Alliance Community HospitalProthrombin time (PT) Ordered By: Casimiro Landaverde on 76-96-8325FH Coag (PPP) [Time]11.2 s9.0-11.6FDetwiler Memorial HospitalRBC Auto (Bld) [#/Vol]Ordered By: Casimiro Landaverde on 98-08-7044SLF (Bld) [#/Vol]4.33 10 6/uLLow4.70-6.10City Hospitalerum or plasma albumin/globulin mass ratioOrdered By: Casimiro Landaverde on 36-52-3160Nnsbufa/Globulin [Mass ratio]1.1 {ratio}City Hospitalerum or plasma anion gap determinationOrdered By: Casimiro Landaverde on 67-53-3199Ykjxb gap [Moles/Vol]14.3 mmol/LFDetwiler Memorial HospitalECG 12 lead ECGon 93-39-9224NMH 12 lead ECGPROTESTANT [place] [address] Electrocardiograph Report Signed Patient: Esme Kaminski MR#: [id number] : 1960 Acct:[id number] Age/Sex: 63 / M ADM Date: 12/09/24 Loc: Room: [address] [place] [address] Type: DIS IN Attending Dr: Antonio Steele [...] in Lateral leads Confirmed by Will Koch ([id number]) on 12/12/2024 5:41:54 PM Referred By: Electronically Signed By: Will Koch Transcribed By: MUS Signed By Will Koch MD 12/12/24 1741[facility] Physician GroupINR in Platelet poor plasma by Coagulation assayOrdered By: Antonio Steele on 36-96-6087OAO Coag (PPP) [Relative time]1.3 {INR}[facility] HospitalComment on above: INR Therapeutic Range A) [...] heart valves: 3 - 4.5 PERFORMED BY: [facility] [address] [place] [address] PATHOLOGIST COASTAL AND ESTUARY SPECIALIST RYAN ALMARAZ M.D.Performed By: #### PT ####[facility] [address] [place] [address] USAProthrombin time (PT)Ordered By: Antonio Steele on 74-44-2167SE Coag (PPP) [Time]14.6 sHigh9.0-12.9[facility] HospitalComment on above:A hematocrit value greater than 55% may lead to inaccurate results in coagulation testing. Patientshaving hematocrit values >55% require a special collection tube for coagulation studies. Please c ontact the laboratory at [phone] for redraw instructions.Result Comment: A hematocrit value greater than 55% may lead to inaccurate results in coagulation testing. Patients having hematocrit values >55% require a special collection tube for coagulation studies. Please contact the laboratory at [phone] for redraw instructions.Performed By: #### PT ####[facility] [address] [place] [address] USACarbon dioxide, total [Moles/volume] in Serum or PlasmaOrdered By: Antonio Steele on 99-45-5201GB4 [Moles/Vol]29.5 mmol/L Rqigea90.0-31.0[facility] HospitalComment on above:Performed By: #### LYTES #### [facility] [address] [place] [address] USAChloride [Moles/volume] in Serum or PlasmaOrdered By: Antonio Steele on 73-20-2780Pwitlers [Moles/Vol]102 mmol/FYpoxmd92-384 [facility] HospitalComment on above:Performed By: #### LYTES #### [facility] [address] [place] [id number] USAECG 12 lead ECGon 88-65-9870COD 12 lead ECGPROTESTANT DEACONESS [facility]OSPITAL [address] [place] [address] [place] [address] Electrocardiograph Report Signed Patient: Esme Kaminski MR#: [id number] : 1960 Acct:[id number] Age/Sex: 63 / M ADM Date: 12/09/24 Loc: Room: 8P8898-3 Type: DIS IN Attending Dr: Antonio Steele [...] in Inferior leads Confirmed by Will Koch ([id number]) on 12/12/2024 5:41:52 PM Referred By: Electronically Signed By: Will Koch Transcribed By: MUS Signed By Will Koch MD 12/12/[address] [place] [address] Physician GroupEC 12 lead [facility] [place] [address] Electrocardiograph Report Signed Patient: Esme Kaminski MR#: [id number] : 1960 Acct:[id number] Age/Sex: 63 / M ADM Date: 12/09/24 Loc: Room: [address] [place] [address] Type: DIS IN Attending Dr: Antonio Steele [...] QT Abnormal ECG Confirmed by Ada Woodruff ([id number]) on 12/16/2024 2:47:12 PM Referred By: Electronically Signed By: Ada Woodruff Transcribed By: [place] [address] [place] [address] Physician GroupECG 12 lead [facility] [address] [place] [id number] Electrocardiograph Report Signed Patient: Esme Kaminski MR#: [id number] : 1960 Acct:[id number] Age/Sex: 63 / M ADM Date: 12/09/24 Loc: Room: [address] [place] [address] Type: ADM IN Attending Dr: Antonio Steele [...] intraventricular conduction delay Confirmed by Will Koch ([id number]) on 12/11/2024 9:11:18 PM Referred By: Electronically Signed By: Will Koch Transcribed By: MUS Signed By Will Koch MD 12/11/242110[facility] Physician GroupPotassium [Moles/volume] in Serum or PlasmaOrdered By: Antonio Steele on 26-52-6216Vtfkjudkd [Moles/Vol] 4.2 mmol/LNormal3.5-5.1FDetwiler Memorial HospitalComment on above: Performed By: #### LYTES #### [place] [address] USAProthrombin Time INRon 37-05-4915MMJ Coag (PPP) [Relative time]1.3 {INR}NormalThe [facility] Physician GroupComment on above:Result Comment: INR Therapeutic [...] heart valves: 3 - 4.5 PERFORMED BY: [place] [address] PATHOLOGIST COASTAL AND ESTUARY SPECIALIST RYAN S RUFINA M.D.Performed By: #### PT #### [place] [address] USAPT Coag (PPP) [Time]14.4 sHigh9.0-12.9The [facility] Physician GroupComment on above:Result Comment: A hematocrit value greater than 55% may lead to inaccurate results in coagulation testing. Patients having hematocrit values >55% require a special collection tube for coagulation studies. Please contact the laboratory at [phone] for redraw instructions.Performed By: #### PT #### [place] [address] USASerum or plasma anion gap determinationOrdered By: Antonio Steele on 85-70-9920Llgql gap [Moles/Vol]8.7 mmol/LNormal6.0-15.0[facility] HospitalComment on above:Result Comment: PERFORMED BY: [place] [address] PATHOLOGIST COASTAL AND ESTUARY SPECIALIST RYAN ALMARAZ M.D.Performed By: #### LYTES #### [place] [address] USASodium [Moles/volume] in Serum or PlasmaOrdered By: Antonio Steele on 63-55-1015Xboprk [Moles/Vol]136 mmol/DBgnoqu729-552 [facility] HospitalComment on above:Performed By: #### LYTES #### [place] [address] USAECG 12 lead ECGon 49-91-5414PDK 12 lead ECGPROTESTANT DEACONESS [facility]OSPITAL [place] [address] [place] [address] Electrocardiograph Report Signed Patient: Esme Kaminski MR#: [id number] : 1960 Acct:[id number] Age/Sex: 63 / M ADM Date: 12/09/24 Loc: Room: [address] [place] [address] Type: ADM IN Attending Dr: Antonio Steele [...] intraventricular conduction delay Confirmed by Will Koch ([id number]) on 12/11/2024 9:10:59 PM Referred By: Electronically Signed By: Will Koch Transcribed By: MUS Signed By Will Koch MD 12/11/[address] [place] [address] Physician GroupECG 12 lead ECGPROTESTANT DEACONESS [facility]OSP[facility] [place] [address] [place] [address] Electrocardiograph Report Signed Patient: Esme Kaminski MR#: [id number] : 1960 Acct:[id number] Age/Sex: 63 / M ADM Date: 12/09/24 Loc: Room: [address] [place] [address] Type: ADM IN Attending Dr: Antonio Steele [...] change was found Confirmed by Will Koch ([id number]) on 12/11/2024 9:10:42 PM Referred By: Electronically Signed By: Will Koch Transcribed By: MUS Signed By Will Koch MD 12/11/[address] [place] [address] Physician GroupProthrombin Time INRon 60-12-1304WKE Coag (PPP) [Relative time]1.2 {INR}NormalThe [facility] Physician GroupComment on above:Result Comment: INR Therapeutic [...] heart valves: 3 - 4.5 PERFORMED BY: [place] [address] PATHOLOGIST COASTAL AND ESTUARY SPECIALIST RYAN ALMARAZ M.D.Performed By: #### PT, PTT #### [place] [address] USAPT Coag (PPP) [Time]13.7 sHigh9.0-12.9The [facility] Physician GroupComment on above:Result Comment: A hematocrit value greater than 55% may lead to inaccurate results in coagulation testing. Patients having hematocrit values >55% require a special collection tube for coagulation studies. Please contact the laboratory at [phone] for redraw instructions.Performed By: #### PT, PTT #### [place] [id number] USABasic Metabolic Panelon 19-12-0455Xesow gap [Moles/Vol]8.0 mmol/LNormal6.0-15.0The [facility] Physician GroupComment on above:Performed By: #### LYTES #### [place] [address] USAChloride [Moles/Vol]105 mmol/BZqasgu28-201Iwa [facility] Physician GroupComment on above:Performed By: #### LYTES #### [place] [address] USACO2 [Moles/Vol]27.0 mmol/NMssfxk13.0-31.0The [facility] Physician GroupComment on above:Performed By: #### LYTES #### [place] [address] USAGFR/1.73 sq M.predicted MDRD (S/P/Bld) [Vol rate/Area] mL/min/{1.73_m2}NormalThe [facility] Physician [facility] HospitalComment on above:Performed By: #### LYTES #### [place] [address] USAPotassium [Moles/Vol]4.0 mmol/LNormal3.5-5.1The [facility] Physician [facility] HospitalComment on above:Performed By: #### LYTES #### [place] [address] USASodium [Moles/Vol]136 mmol/SCvlczu920-661Gey [facility] Physician GroupComment on above:Performed By: #### LYTES #### [place] [address] USACalcium [Mass/volume] in Serum or PlasmaOrdered By: Antonio Steele on 02-19-4394Wfuxlgn [Mass/Vol]8.7 mg/dLNormal8.6-10.3 [facility] HospitalComment on above:Result Comment: PERFORMED BY: [place] [address] PATHOLOGIST COASTAL AND ESTUARY SPECIALIST RYAN ALMARAZ M.D.Performed By: #### LYTES #### [place] [address] USACreatinine [Mass/volume] in Serum or PlasmaOrdered By: Antonio Steele on 78-72-3919Piaejkdwas [Mass/Vol]0.84 mg/dLNormal0.70-1.30 [facility] HospitalComment on above:Performed By: #### LYTES #### [place] [address] USAECG 12 lead ECGon 66-33-1762RCB 12 lead ECGPROTESTANT DEACONESS HOSPITAL [place] [address] [place] [address] Electrocardiograph Report Signed Patient: Esme Kaminski MR#: [id number] : 1960 Acct:[id number] Age/Sex: 63 / M ADM Date: 12/09/24 Loc: Room: [address] [place] [address] Type: ADM IN Attending Dr: Antonio Steele [...] QT has lengthened Confirmed by Will Koch ([id number]) on 12/11/2024 9:10:26 PM Referred By: Electronically Signed By: Will Koch Transcribed By: MUS Signed By Will Koch MD 12/11/[address] [place] [address] Physician GroupEC 12 lead ECGPROTESTANT DEACONESS [facility]OS[facility] [place] [address] [place] [address] Electrocardiograph Report Signed Patient: Esme Kaminski MR#: [id number] : 1960 Acct:[id number] Age/Sex: 63 / M ADM Date: 12/09/24 Loc: Room: [address] [place] [address] Type: ADM IN Attending Dr: Antonio Steele [...] QT has shortened Confirmed by Will Koch ([id number]) on 12/11/2024 9:10:22 PM Referred By: Electronically Signed By: Will Koch Transcribed By: MUS Signed By Will Koch MD 12/11/[address] [place] [address] Physician [facility] Regional HospitalGlomerular filtration rate [Volume Rate/Area] in Serum, Plasma or Blood by CreatinineOrdered By: Antonio Steele on 95-01-1305Waemffwjoj filtration rate [Volume Rate/Area] in Serum, Plasma or Blood by Creatinine> 60.0 mL/MinAultman Alliance Community Hospital Glucose [Mass/volume] in Serum or PlasmaOrdered By: Antonio Steele on 62-82-1010Zrxewac [Mass/Vol]190 mg/zMZoit81-996YidqdcrmwAultman Alliance Community Hospital Comment on above:ADA recommended reference rangeRandom [...] recommended reference rangePerformed By: #### LYTES #### [facility] [address] [place] [address] USANo Panel InformationOrdered By: Antonio Steele on 88-34-9242Bbzwsimk Creatinine Clearance (ChemN/Community Memorial HospitalProthrombin Time INRon 79-93-0431UKI Coag (PPP) [Relative time]1.3 {INR} NormalThe [facility] Physician GroupComment on above:Result Comment: INR Therapeutic [...] heart valves: 3 - 4.5 PERFORMED BY: [place] [address] PATHOLOGIST COASTAL AND ESTUARY SPECIALIST RYAN ALMARAZ M.D.Performed By: #### LYTES #### [facility] [address] [place] [address] USAPT Coag (PPP) [Time]14.9 sHigh9.0-12.9The [facility] Physician GroupComment on above:Result Comment: A hematocrit value greater than 55% may lead to inaccurate results in coagulation testing. Patients having hematocrit values >55% require a special collection tube for coagulation studies. Please contact the laboratory at [phone] for redraw instructions.Performed By: #### LYTES #### [facility] [address] [place] [address] USAUrea nitrogen [Mass/volume] in Serum or PlasmaOrdered By: Antonio Steele on 29-46-0992Vrdq nitrogen [Mass/Vol]15 mg/dLNormal10-31 [facility] HospitalComment on above:Performed By: #### LYTES #### [facility] [address] [place] [address] USAECG 12 Leadon 09-21-8039Bzbboz fibrillation with controlled rate and nonspecific ST-T changesCPACSWayne Hospital Work Phone: X-ray reportOrdered By: Rubio Vazquez on 10-23-2024 Study reportPROTESTANT [facility] [address] [place] [id number] XRay Report Signed Patient: Esme Kaminski MR#: [id number] : 1960 Acct:[id number] Age/Sex: 63 / M ADM Date: 5 Loc: [facility] Room: Type: [facility] Attending Dr: Sarai Mendez II, MD [...] Vazquez II, MD 10/23/241954 Signed By: 10/23/241955 [facility] Work Phone: XR hip RT min 2V(w/wo pelvis)*on 21-95-8865YT hip RT min 2V(w/wo pelvis)*[facility] [address] [place] [address] XRay Report Signed Patient: Esme Kaminski MR#: [id number] : 1960 Acct:[id number] Age/Sex: 63 / M ADM Date: 10/23/24 Loc: [facility] Room: Type: [facility] Attending Dr: Sarai Mendez II, MD [...] Vazquez II, MD 10/23/241954 Signed By: 10/23/241955[facility] Physician GroupBasic Metabolic Panelon 39-65-4353Jhkhgmpdcq Clr Calc Pjortsea747.50[facility] Comment on above:Result Comment: PERFORMED BY: [address] [place] [id number] PATHOLOGIST COASTAL AND ESTUARY SPECIALIST RYAN ALMARAZ M.D.Performed By: #### BMP, CBC ####[address] [address] USAGFR/1.73 sq M.predicted MDRD (S/P/Bld) [Vol rate/Area]mL/min/{1.73_m2}NormalThe [facility] Physician GroupComment on above:Performed By: #### BMP, CBC ####[address] [address] USABasophils [#/volume] in Blood by Automated count Ordered By: Ada Valentin on 31-09-8215Whdtxqioq (Bld) [#/Vol]0.1 10*3/uLNormal 0.0-0.2FDetwiler Memorial HospitalComment on above:Result Comment: PERFORMED BY: [facility] [address] [place] [address] PATHOLOGIST COASTAL AND ESTUARY SPECIALIST RYAN ALMARAZ M.D.Performed By: #### BMP, CBC ####[address] [address] USABasophils/100 leukocytes in Blood by Automated countOrdered By: Ada Valentin on 78-39-6420Gvwkgklsz/100 WBC (Bld)0.5 % Normal.[facility] HospitalComment on above:Performed By: #### BMP, CBC ####[address] [address] [place] Calcium [Mass/volume] in Serum or PlasmaOrdered By: Ada Valentin on 10-01-2024 Calcium [Mass/Vol]8.4 mg/dLLow8.6-10.3FDetwiler Memorial HospitalComment on above:Performed By: #### BMP, CBC ####[place] [address] USACarbon dioxide, total [Moles/volume] in Serum or PlasmaOrdered By: Ada Valentin on 87-25-2257RG7 [Moles/Vol]25.4 mmol/LNormal 21.0-31.0[facility] HospitalComment on above:Performed By: #### BMP, CBC ####[place] [address] USAChloride [Moles/volume] in Serum or PlasmaOrdered By: Ada Valentin on 91-13-5972Alplyjmy [Moles/Vol]104 mmol/UNtrysm34-949JdoashvzuAultman Alliance Community HospitalComment on above:Performed By: #### BMP, CBC ####[place] [address] USAComplete Blood Count Auto Diff on 99-49-5313Ubfr Corpuscular HGB Conc34.1 g/oXFyxnvp02.5-35.6The [facility] Physician [facility] HospitalComment on above:Performed By: #### BMP, CBC ####[place] [address] USANRBC%0.1 /100{WBC} Normal0-0.5The [facility] Physician [facility] Regional HospitalComment on above:Performed By: #### BMP, CBC ####[address] [place] Blood Count13.7 [CFU]/mLHigh4.1-10.5The [facility] Rehabilitation HospitalComment on above:Performed By: #### BMP, CBC ####[place] [address] USACreatinine [Mass/volume] in Serum or Plasma Ordered By: Ada Valentin on 70-51-0994Xfeccdjttl [Mass/Vol]0.79 mg/dLSignificant change down0.70-1.30[facility] HospitalComment on above:Delta: 1.32 on 09/30/24-1421Performed By: #### BMP, CBC ####[address] [address] USAEosinophils [#/volume] in Blood by Automated countOrdered By: Ada Valentin on 62-54-3818Ohdsorjdwwy (Bld) [#/Vol]0.1 10*3/uLNormal0.0-0.45[facility] HospitalComment on above: Performed By: #### BMP, CBC ####[address] [address] USAEosinophils/100 leukocytes in Blood by Automated countOrdered By: Ada Valentin on 87-64-3000Aqoowzfuglx/100 WBC (Bld)0.9 %Normal. [facility] HospitalComment on above:Performed By: #### BMP, CBC ####[place] [address] [place] Erythrocyte distribution width [Ratio] by Automated countOrdered By: Ada Valentin on 43-28-8305Khoxvamrdtj distribution width (RBC) [Ratio]14.4 %Tbmxrz91.0-14.8 [facility] HospitalComment on above:Performed By: #### BMP, CBC ####[address] [address] [place] Erythrocytes [#/volume] in Blood by Automated countOrdered By: Ada Valentin on 07-19-2779YBU (Bld) [#/Vol]4.32 10*6/uLNormal3.90-5.60[facility] HospitalComment on above:Performed By: #### BMP, CBC ####[address] [address] USAGlucose [Mass/volume] in Serum or PlasmaOrdered By: Ada Valentin on 59-10-0436Mtukwev [Mass/Vol]120 mg/dLHigh 70-100[facility] HospitalComment on above:ADA recommended reference rangeRandom Glucose [...] recommended reference rangePerformed By: #### BMP, CBC ####[facility] [place] [address] USAHematocrit [Volume Fraction] of Blood by Automated countOrdered By: Ada Valentin on 10-01-2024 Hematocrit (Bld) [Volume fraction]44.0 %Angsoh30.8-50.0[facility] HospitalComment on above:Performed By: #### BMP, CBC ####[address] [address] USAHemoglobin [Mass/volume] in BloodOrdered By: Ada Valentin on 76-73-6313Mcubxmlrln (Bld) [Mass/Vol]15.0 g/jYMnwoge65.0-17.0[facility] HospitalComment on above:Performed By: #### BMP, CBC ####[address] [address] USALactate [Moles/volume] in Serum or PlasmaOrdered By: Ada Valentin on 63-23-9359Ppbncdu [Moles/Vol]1.1 mmol/LNormal0.5-1.9[facility] HospitalComment on above:Lactic Acid reference range has been updated to 0.5 1.9 mmol/L and the critical range of 2.0 or greater.Order Comment: Comment Add onResult Comment: Lactic Acid reference range has been updated to 0.5 ? 1.9 mmol/L and the critical range of 2.0 or greater. PERFORMED BY: [facility] [address] [place] [address] PATHOLOGIST COASTAL AND ESTUARY SPECIALIST RYAN ALMARAZ M.D.Performed By: #### LACTIC ####[address] [address] USALeukocytes [#/volume] corrected for nucleated erythrocytes in Blood by Automated counOrdered By: Ada Valentin on 09-33-9314GZC corrected for nucl RBC Auto (Bld) [#/Vol]13.7 10*3/uLHigh4.1-10.5 [facility] HospitalLeukocytes [#/volume] in Blood by Automated countOrdered By: Ada Valentin on 79-08-8182YAV (Bld) [#/Vol]13.7 10*3/uLHigh 4.1-10.5FDetwiler Memorial HospitalComment on above:Performed By: #### BMP, CBC ####[facility] [address] [place] [address] USALymphocytes [#/volume] in Blood by Automated countOrdered By: Ada Valentin on 62-08-6866Shjjwnawgqg (Bld) [#/Vol]2.2 10*3/uLNormal1.00-4.8[facility] HospitalComment on above:Performed By: #### BMP, CBC ####[address] [address] USALymphocytes/100 leukocytes in Blood by Automated countOrdered By: Ada Valentin on 10-01-2024 Lymphocytes/100 WBC (Bld)16.2 %Normal.[facility] HospitalComment on above:Performed By: #### BMP, CBC ####[address] [address] [facility] [Entitic mass] by Automated countOrdered By: Ada Valentin on 14-56-9839QLG (RBC) [Entitic mass]34.7 cpShhlad67.5-35.2 [facility] HospitalComment on above:Performed By: #### BMP, CBC ####[address] [address] [facility] Auto (RBC) [Mass/Vol]Ordered By: Ada Valentin on 91-41-7366LNXW (RBC) [Mass/Vol] 34.1 g/dL32.5-35.6FDetwiler Memorial HospitalMCV [Entitic volume] by Automated countOrdered By: Ada Valentin on 74-98-5838QZG (RBC) [Entitic vol]101.8 pWPggw28.5-101[facility] HospitalComment on above:Performed By: #### BMP, CBC ####[address] [address] USAMonocytes [#/volume] in Blood by Automated countOrdered By: Ada Valentin on 32-25-6692Ixgtxeibh (Bld) [#/Vol]1.1 10*3/uLHigh0.0-0.8[facility] HospitalComment on above:Performed By: #### BMP, CBC ####[address] [address] USAMonocytes/100 leukocytes in Blood by Automated countOrdered By: Ada Valentin on 10-01-2024 Monocytes/100 WBC (Bld)7.9 %Normal.[facility] HospitalComment on above:Performed By: #### BMP, CBC ####[address] [address] USANeutrophils [#/volume] in Blood by Automated count Ordered By: Ada Valentin on 50-99-9616Wjjwrxazwjb (Bld) [#/Vol]10.2 10*3/uLHigh 1.8-7.7FDetwiler Memorial HospitalComment on above:Performed By: #### BMP, CBC ####[address] [address] [place] Neutrophils/100 leukocytes in Blood by Automated countOrdered By: Ada Valentin on 76-46-5477Hldlgbdjekd/100 WBC (Bld)74.5 %Normal.[facility] HospitalComment on above:Performed By: #### BMP, CBC ####[address] [address] USANo Panel InformationOrdered By: Ada Valentin on 44-67-3146Utyqmfoto GFR (CKD-EPI)> 60.0 mL/MinAultman Alliance Community HospitalPharmacy Creatinine Clearance (Kjgl914.50[facility] Community HospitalNucleated erythrocytes [Presence] in Blood by Automated countOrdered By: Ada Valentin on 74-74-5122Snngadarp RBC Auto Ql (Bld)0.1 /100{WBC}0-0.5FDetwiler Memorial HospitalPlatelet mean volume [Entitic volume] in Blood by Automated countOrdered By: Ada Valentin on 77-24-2836Dlfwdtjt mean volume (Bld) [Entitic vol]9.5 fLNormal6.6-10.1FDetwiler Memorial HospitalComment on above:Performed By: #### BMP, CBC ####[address] [address] USAPlatelets [#/volume] in Blood by Automated countOrdered By: Ada Valentin on 14-23-5659Xikrtjjna (Bld) [#/Vol] 161 10*3/uLSignificant change nwtc417-388NzxutlvwlAultman Alliance Community Hospital Comment on above:Delta: 218 on 09/30/24-1421Performed By: #### RAIMUNDO, CBC ####[place] [address] [place] Potassium [Moles/volume] in Serum or PlasmaOrdered By: Ada Valentin on 10-01-2024 Potassium [Moles/Vol]3.6 mmol/LNormal3.5-5.1FDetwiler Memorial Hospital Comment on above:Performed By: #### BMP, CBC ####[address] [address] USASerum or plasma anion gap determinationOrdered By: Ada Valentin on 91-05-8034Ifpuf gap [Moles/Vol]9.2 mmol/LNormal6.0-15.0[facility] HospitalComment on above:Performed By: #### BMP, CBC ####[address] [address] USASodium [Moles/volume] in Serum or PlasmaOrdered By: Ada Valentin on 51-71-7644Neyist [Moles/Vol]135 mmol/QWip594-291KabrngmllAultman Alliance Community HospitalComment on above:Performed By: #### BMP, CBC ####[address] [address] USAUrea nitrogen [Mass/volume] in Serum or PlasmaOrdered By: Ada Valentin on 00-72-6870Itvc nitrogen [Mass/Vol]17 mg/dLNormal-[facility] HospitalComment on above:Performed By: #### BMP, CBC ####[facility] [address] [place] [address] USAAppearance of UrineOrdered By: Radha Mednia on 30-77-3727Rxavcdidfn (U)ClearNormalClearAultman Alliance Community HospitalComment on above:Order Comment: Name Collection Type:: Clean-Voided MidstreamPerformed By: #### PT, PTT #### [facility] [address] [place] [address] USABNP ser/plasOrdered By: Radha Medina on 09-30-2024 Natriuretic peptide B (Bld) [Mass/Vol]308.0 pg/mLBeckley Appalachian Regional Hospital5[facility] Community HospitalComment on above:Result Comment: PERFORMED BY: [facility] [address] [place] [address] PATHOLOGIST COASTAL AND ESTUARY SPECIALIST RYAN ALMARAZ M.D.Performed By: #### PT #### [facility] [address] [place] [address] USABacteria [Presence] in Urine by AutomatedOrdered By: Radha Medina on 78-80-9253Smwokrlr Auto Ql (U)Rare [HPF]None SeenAultman Alliance Community HospitalBasic Metabolic Panelon 60-76-5531Kyolo gap [Moles/Vol] 13.3 mmol/LNormal6.0-15.0The [facility] Physician GroupComment on above:Performed By: #### PT #### [facility] [address] [place] [address] USACalcium [Mass/Vol]9.3 mg/dLNormal8.6-10.3The [facility] Physician GroupComment on above:Performed By: #### PT #### [facility] [address] [place] [address] USAChloride [Moles/Vol]101 mmol/ADethgb77-411Zar [facility] Physician GroupComment on above:Performed By: #### PT #### [place] [address] USACO2 [Moles/Vol]24.7 mmol/PQkfopp70.0-31.0The [facility] Physician GroupComment on above:Performed By: #### PT #### [facility] [address] [place] [address] USACreatinine [Mass/Vol]1.32 mg/dLSignificant change down 0.70-1.30The [facility] Physician GroupComment on above:Performed By: #### PT #### [place] [address] USACreatinine Clr Calc Uvudgwwb55.94NormalThe [facility] Physician GroupComment on above:Result Comment: PERFORMED BY: [place] [address] PATHOLOGIST COASTAL AND ESTUARY SPECIALIST RYAN ALMARAZ M.D.Performed By: #### PT #### [place] [address] USAGFR/1.73 sq M.predicted MDRD (S/P/Bld) [Vol rate/Area] mL/min/{1.73_m2}NormalThe [facility] Physician GroupComment on above:Performed By: #### PT #### [place] [address] USAGlucose [Mass/Vol]171 mg/jXCozg65-085Wnp [facility] Physician GroupComment on above:Result Comment: Random Glucose Reference Range is dependent on time and content of last meal. Glucose of more than 200 mg/dL in a nonstressed, ambulatory subject supports the diagnosis of Diabetes Mellitus. ADA recommended reference rangePerformed By: #### PT #### [place] [address] USAPotassium [Moles/Vol]4.0 mmol/LNormal3.5-5.1The [facility] Physician GroupComment on above:Performed By: #### PT #### [place] [address] USASodium [Moles/Vol]135 mmol/JOtu734-151Urs [facility] Physician GroupComment on above:Performed By: #### PT #### [facility] [address] [place] [address] USAUrea nitrogen [Mass/Vol]17 mg/dLNormal [facility] Physician GroupComment on above:Performed By: #### PT #### [facility] [address] [place] [address] USABilirubin Test strip Ql (U)Ordered By: Radha Medina on 30-12-1586Pkxstatnf Ql (U)NegativeNegativeAultman Alliance Community HospitalBlood Cultureon 04-81-1070Mljnvbmn identified Cx Nom (Bld)NO GROWTH 5 DAYS PERFORMED BY: [place] [address] PATHOLOGIST COASTAL AND ESTUARY SPECIALIST RYAN ALMARAZ M.D.NormalPalmetto General Hospital Physician GroupComment on above: Performed By: #### CUBLD, LACTIC ####[facility] [address] [place] [address] USABacteria identified Cx Nom (Bld)NO GROWTH 5 DAYS PERFORMED BY: [place] [address] PATHOLOGIST COASTAL AND ESTUARY SPECIALIST RYAN ALMARAZ M.D.[facility] Physician GroupComment on above: Performed By: #### CUBLD, LACTIC ####[facility] [address] [place] [address] USACT head/brain wo conon 36-42-3462TY head/brain wo [facility] [place] [address] CT Scan Report Signed Patient: Esme Kaminski MR#: [id number] : 1960 Acct:[id number] Age/Sex: 63 / M ADM Date: 09/30/24 Loc: Room: [address] [place] [address] Type: DIS INOo Attending Dr: Leidy Nuno [...] Paul M.D. 09/30/2024 4:34 PM Dictation Location: [place] [address] Transcribed By: [facility] 09/30/24 1634 Dictated By: Ap Paul MD 09/30/24 1630 Signed By: 09/30/24 1634[facility] Physician GroupColor of Urine by AutoOrdered By: Radha Medina on 50-72-0831Kyzgm (U)[facility] Health CenterComment on above:Order Comment: Name Collection Type:: Clean- Voided MidstreamPerformed By: #### PT, PTT #### [place] [address] USAComplete Blood Count Auto Diffon 87-74-9920Xivepkbzl (Bld) [#/Vol]0.1 10*3/uLNormal0.0-0.2The [facility] Physician GroupComment on above: Result Comment: PERFORMED BY: [place] [address] PATHOLOGIST COASTAL AND ESTUARY SPECIALIST RYAN ALMARAZ M.D.Performed By: #### PT, PTT #### [place] [address] USABasophils/100 WBC (Bld)0.6 %Normal.The [facility] Physician GroupComment on above:Performed By: #### PT, PTT #### [place] [id number] USAEosinophils (Bld) [#/Vol]0.0 10*3/uLNormal0.0-0.45The [facility] Physician GroupComment on above:Performed By: #### PT, PTT #### [place] [address] USAEosinophils/100 WBC (Bld)0.2 %Normal.The [facility] Physician GroupComment on above:Performed By: #### PT, PTT #### [place] [address] USAErythrocyte distribution width (RBC) [Ratio]14.0 %Normal 12.0-14.8The [facility] Physician GroupComment on above:Performed By: #### PT, PTT #### [place] [address] USAHematocrit (Bld) [Volume fraction]51.1 %High38.8-50.0The [facility] Physician GroupComment on above:Performed By: #### PT, PTT #### [place] [address] USAHemoglobin (Bld) [Mass/Vol]17.3 g/sFObtf07.0-17.0The [facility] Physician GroupComment on above:Performed By: #### PT, PTT #### [place] [address] USALymphocytes (Bld) [#/Vol]1.9 10*3/uLNormal1.00-4.8The [facility] Physician GroupComment on above:Performed By: #### PT, PTT #### [place] [address] USALymphocytes/100 WBC (Bld)11.5 %Normal.The [facility] Physician GroupComment on above:Performed By: #### PT, PTT #### [place] [address] USAMCH (RBC) [Entitic mass]34.4 kmWuubec16.5-35.2The [facility] Physician GroupComment on above:Performed By: #### PT, PTT #### [place] [address] USAMCV (RBC) [Entitic vol]101.9 pPHfgp83.5-101The [facility] Physician GroupComment on above:Performed By: #### PT, PTT #### [place] [address] USAMean Corpuscular HGB Conc33.8 g/aKAozuoa53.5-35.6The [facility] Physician GroupComment on above:Performed By: #### PT, PTT #### [place] [address] USAMonocytes (Bld) [#/Vol]0.7 10*3/uLNormal0.0-0.8The [facility] Physician GroupComment on above:Performed By: #### PT, PTT #### [place] [address] USAMonocytes/100 WBC (Bld)22.40 %High0.00-20.00The [facility] Physician GroupComment on above:Result Comment: For adults in ED, MDW > 20.0 may be associated with a higher risk of sepsis during the first 12 hrs of hospital admissionPerformed By: #### PT, PTT #### [place] [address] USAMonocytes/100 WBC (Bld)3.9 %Normal.The [facility] Physician GroupComment on above:Performed By: #### PT, PTT #### [place] [address] USANeutrophils (Bld) [#/Vol]14.2 10*3/uLHigh1.8-7.7The [facility] Physician GroupComment on above:Performed By: #### PT, PTT #### [place] [address] USANeutrophils/100 WBC (Bld)83.8 %Normal.The [facility] Physician GroupComment on above:Performed By: #### PT, PTT #### [place] [address] USANRBC%0.1 /100{WBC}Normal0-0.5The [facility] Comment on above:Performed By: #### PT, PTT #### [facility] [address] [place] [address] USAPlatelet mean volume (Bld) [Entitic vol]9.8 fLNormal 6.6-10.1The [facility] Physician GroupComment on above:Performed By: #### PT, PTT #### [facility] [address] [place] [address] USAPlatelets (Bld) [#/Vol]218 10*3/vHYkwyqq271-590Imk [facility] Physician GroupComment on above:Performed By: #### PT, PTT #### [facility] [address] [place] [address] USARBC (Bld) [#/Vol]5.01 10*6/uLNormal3.90-5.60The [facility] Physician GroupComment on above:Performed By: #### PT, PTT #### [facility] [address] [place] [address] USAWBC (Bld) [#/Vol]16.9 10*3/uLHigh4.1-10.5The [facility] Physician GroupComment on above:Performed By: #### PT, PTT #### [place] [address] USAWhite Blood Count16.9 [CFU]/mLHigh4.1-10.5The [facility] Physician GroupComment on above:Performed By: #### PT, PTT #### [place] [address] USACreatine kinase [Enzymatic activity/volume] in Serum or PlasmaOrdered By: Radha Medina on 03-86-1373VL [Catalytic activity/Vol]18 U/L Gks70-889RjieuqogtAultman Alliance Community HospitalComment on above:Performed By: #### PT #### [place] [address] USADipstick and Microscopicon 81-23-3856Iehgpfgg,UrineRare NormalNone SeenThe [facility] Physician GroupComment on above:Order Comment: Name Collection Type:: Clean-Voided MidstreamPerformed By: #### PT, PTT #### [place] [address] USABilirubin,UrineNegativeNormalNegativeThe [facility] Physician GroupComment on above:Order Comment: Name Collection Type:: Clean- Voided MidstreamPerformed By: #### PT, PTT #### [place] [address] USAGlucose Ql (U)70 mg/dLNormalNormalThe [facility] Physician GroupComment on above:Order Comment: Name Collection Type:: Clean-Voided MidstreamPerformed By: #### PT, PTT #### [place] [address] USAHyaline Casts,Ahfba42-83Ejfkgz6-9Pzh [facility] Physician GroupComment on above:Order Comment: Name Collection Type:: Clean-Voided MidstreamPerformed By: #### PT, PTT #### [place] [address] USAMucus,Urine2+ [LPF]Critically abnormalThe [facility] Physician GroupComment on above:Order Comment: Name Collection Type:: Clean- Voided MidstreamResult Comment: PERFORMED BY: [place] [address] PATHOLOGIST COASTAL AND ESTUARY SPECIALIST RYAN ALMARAZ M.D.Performed By: #### PT, PTT #### [place] [address] USANitrite,UrineNegativeNormalNegativePalmetto General Hospital Physician GroupComment on above:Order Comment: Name Collection Type:: Clean-Voided MidstreamPerformed By: #### PT, PTT #### [place] [id number] USAOccult Blood,UrineNegativeNormalNegativeThe [facility] Physician GroupComment on above:Order Comment: Name Collection Type:: Clean- Voided MidstreamResult Comment: PERFORMED BY: [place] [address] PATHOLOGIST COASTAL AND ESTUARY SPECIALIST RYAN ALMARAZ M.D.Performed By: #### PT, PTT #### [place] [address] USARBC,Fgqhh5-7Nmkppd7-4Gwe [facility] Physician GroupComment on above:Order Comment: Name Collection Type:: Clean-Voided MidstreamPerformed By: #### PT, PTT #### [place] [address] USASpecificy [place],Urine1.899Zryedd9.001-1.030The [facility] Physician GroupComment on above:Order Comment: Name Collection Type:: Clean- Voided MidstreamPerformed By: #### PT, PTT #### [place] [address] USASquamous Epithelial Cell,Zitue4-1Emsxir4-6Xpu [facility] Physician GroupComment on above:Order Comment: Name Collection Type:: Clean- Voided MidstreamPerformed By: #### PT, PTT #### [place] [address] USAUrobilinogen,UrineNormalNormalNormalThe [facility] Physician GroupComment on above:Order Comment: Name Collection Type:: Clean- Voided MidstreamPerformed By: #### PT, PTT #### [place] [address] USAWBC,Unxig2-7Ibtfhx9-0Lez [facility] Physician GroupComment on above:Order Comment: Name Collection Type:: Clean-Voided MidstreamPerformed By: #### PT, PTT #### [place] [address] USAECG 12 lead ECGon 67-53-9979WMW 12 lead ECGPROTESTANT DEACONESS HOSPITAL [place] [address] [place] [address] Electrocardiograph Report Signed Patient: Esme Kaminski MR#: [id number] : 1960 Acct:[id number] Age/Sex: 63 / M ADM Date: 09/30/24 Loc: Room: [address] [place] [address] Type: ADM INOo Attending Dr: Leidy Nuno [...] wave abnormality Confirmed by Radha Medina MD ([id number]) on 09/30/2024 9:27:27 PM Referred By: Electronically Signed By: Radha Medina MD Transcribed By: MUS Signed By Radha Medina MD 09/[address] [place] [address] Physician GroupEpithelial cells.squamous [#/area] in Urine sediment by Automated countOrdered By: Radha Medina on 09-30-2024 Epithelial cells.squamous Auto (Urine sed) [#/Area]1-2 [HPF]0-2FDetwiler Memorial HospitalErythrocytes [#/area] in Urine sediment by Automated countOrdered By: Radha Medina on 68-22-3766VOO Auto (Urine sed) [#/Area]1-2 [HPF]0-4FDetwiler Memorial HospitalGlucose [Mass/volume] in Urine by Test stripOrdered By: Radha Medina on 16-78-9484Ydhrzte Test strip (U) [Mass/Vol]70 mg/dLHighNormalAultman Alliance Community HospitalHemoglobin Test strip Ql (U) Ordered By: Radha Medina on 25-31-0784Amcfcqrrjg Ql (U)NegativeNegative [facility] HospitalHyaline casts [#/area] in Urine sediment by Automated countOrdered By: Radha Medina on 20-70-4165Evqbpuz casts Auto (Urine sed) [#/Area]20-49 [LPF]High0-8A[facility] Alliance Community HospitalINR in Platelet poor plasma by Coagulation assayOrdered By: Radha Medina on 73-15-5941AUE Coag (PPP) [Relative time]1.0 {INR}NormalAultman Alliance Community Hospital Comment on above:INR Therapeutic Range A) [...] heart valves: 3 - 4.5 PERFORMED BY: [address] [place] [address] PATHOLOGIST COASTAL AND ESTUARY SPECIALIST RYAN ALMARAZ M.D.Performed By: #### PT #### [place] [address] USAKetones [Presence] in Urine by Test stripOrdered By: Radha Medina on 98-10-7182Wmjnzlj Ql (U)NegativeNormalNegativeAultman Alliance Community HospitalComment on above:Order Comment: Name Collection Type:: Clean-Voided MidstreamPerformed By: #### PT, PTT #### [facility] [address] [place] [address] USALaboratory - Microbiology and Antimicrobial susceptibility Ordered By: Radha Medina on 96-96-1712Bqtkdywi identified Cx Nom (Bld)NO GROWTH 5 DAYSAultman Alliance Community HospitalBacteria identified Cx Nom (Bld)NO GROWTH 5 DAYSAultman Alliance Community HospitalLactic Acidon 79-00-0090Mauyvzw [Moles/Vol]2.2 mmol/LOff scale high0.5-1.9The [facility] Physician GroupComment on above:Result Comment: Critical Result : Called to and read back by: EVELYN TODD at: 09/30/2024 16:27:07 by:[id number] Lactic Acid reference range has been updated to 0.5 ? 1.9 mmol/L and the critical range of 2.0 or greater. PERFORMED BY: [place] [address] PATHOLOGIST COASTAL AND ESTUARY SPECIALIST RYAN ALMARAZ M.D.Performed By: #### CUBLD, LACTIC ####[facility] [address] [place] [id number] USALactic Acid Reflexon 44-92-4349Epvvxw Acid Reflex2.4 mmol/LOff scale high0.5-1.9The [facility] Physician GroupComment on above:Result Comment: Critical Result : Called to and read back by: SHAHRZAD DIAZ at: 09/30/2024 20:32:04 by: Lactic Acid reference range has been updated to 0.5 ? 1.9 mmol/L and the critical range of 2.0 or greater. PERFORMED BY: [place] [address] PATHOLOGIST COASTAL AND ESTUARY SPECIALIST RYAN ALMARAZ M.D.Performed By: #### PT, PTT #### [place] [address] USALeukocyte esterase [Presence] in Urine by Test strip Ordered By: Radha Medina on 29-51-5064Wdrsrhmjx esterase Test strip Ql (U) NegativeNormalNegativeAultman Alliance Community HospitalComment on above:Order Comment: Name Collection Type:: Clean-Voided MidstreamPerformed By: #### PT, PTT #### [place] [id number] USALeukocytes [#/area] in Urine sediment by Automated count Ordered By: Radha Medina on 23-37-3694BND Auto (Urine sed) [#/Area]1-2 [HPF] 0-4FDetwiler Memorial HospitalMonocyte distribution width [Entitic volume] in Blood by AutomatedOrdered By: Radha Medina on 15-84-7929Wtacrsug distribution width Auto (Bld) [Entitic vol]22.40 %High0.00-20.00[facility] HospitalComment on above:For adults in ED, MDW > 20.0 may be associated with a higher risk of sepsis during the first 12 hrs of hospital admissionMucus [Presence] in Urine by AutomatedOrdered By: Radha Medina on 43-82-2497Jxhxj Auto Ql (U)2+ [LPF]AbnormalAultman Alliance Community Hospital Nitrite Test strip Ql (U)Ordered By: Rdaha Medina on 15-86-6355Qbxcmpc Ql (U) NegativeNegativeAultman Alliance Community HospitalProtein [Mass/volume] in Urine by Test stripOrdered By: Radha Medina on 23-40-5618Ufuqtox (U) [Mass/Vol]20 mg/dLNormalNegativeAultman Alliance Community HospitalComment on above:Order Comment: Name Collection Type:: Clean-Voided MidstreamPerformed By: #### PT, PTT #### [facility] [address] [place] [address] USAProthrombin time (PT)Ordered By: Radha Medina on 32-45-5858NY Coag (PPP) [Time]11.8 sNormal9.0-12.9[facility] HospitalComment on above:A hematocrit value greater than 55% may lead to inaccurate results in coagulation testing. Patientshaving hematocrit values >55% require a special collection tube for coagulation studies. Please contact the laboratory at [phone] for redraw instructions.Result Comment: A hematocrit value greater than 55% may lead to inaccurate results in coagulation testing. Patients having hematocrit values >55% require a special collection tube for coagulation studies. Please contact the laboratory at [phone] for redraw instructions.Performed By: #### PT #### [facility] [address] [place] [address] USASpecific gravity Test strip (U) [Rel density]Ordered By: Radha Medina on 53-52-0650Vwetdaic gravity (U) [Rel density]1.0281.001-1.030 [facility] Community HospitalTroponin I High Sensitivityon 09-30-2024 Troponin I High Bsmstiwlkbq00Kznqty6-12Anp [facility] Physician GroupComment on above:Result Comment: The Troponin units of report have been changed to meet the Chest Pain Accreditation requirement, element EC5.M1l2. Troponin units are changed from pg/ml to ng/L. Also, the decimal is removed and results are in whole numbers. PERFORMED BY: [facility] [address] [facility] [place] [address] PATHOLOGIST COASTAL AND ESTUARY SPECIALIST RYAN ALMARAZ M.D.Performed By: #### PT #### [facility] [address] [place] [address] USATroponin I.cardiac [Mass/volume] in Serum or Plasma by Detection limit <= 0.01 ng/mLOrdered By: Radha Medina on 97-42-3716Juddkjar I.cardiac DL <= 0.01 ng/mL [Mass/Vol]12 ng/L0-20[facility] Community HospitalComment on above:The Troponin units of report have been changed to meet the Chest Pain Accreditation requirement, element EC5.M1l2. Troponin units are changed from pg/ml to ng/L. Also, the decimal is removed and results are in whole numbers.Urine Cultureon 72-57-7613Rneahwlg identified Cx Nom (U)No Growth 2 Days PERFORMED BY: [address] [address] PATHOLOGIST COASTAL AND ESTUARY SPECIALIST RYAN ALMARAZ M.D.NormalThe [facility] Physician GroupComment on above: Performed By: #### PT, PTT #### [facility] [address] [place] [address] USAUrine cultureOrdered By: Radha Medina on 09-30-2024 Bacteria identified Cx Nom (U)No Growth 2 DaysAultman Alliance Community Hospital Urobilinogen Test strip (U) [Mass/Vol]Ordered By: Radha Medina on 09-30-2024 Urobilinogen (U) [Mass/Vol]Normal mg/dLNormalAultman Alliance Community HospitalX- ray reportOrdered By: Alex Castro on 21-03-9430Cxtik reportPROTESTANT DEACONESS HOSPITAL Main [place] [address] [place] [address] XRay Report Signed Patient: Esme Kaminski MR#: [id number] : 1960 Acct:[id number] Age/Sex: 63 / M ADM Date: 5 Loc: ER Room: Type: [facility] ER Attending Dr: Copies to: Radha Medina [...] Castro Jr DO 09/30/241453 Signed By: 09/30/241455 [facility] HospitalXR chest 1V portableon 14-16-2208KD chest 1V portablePROTESTANT DEACONESS HOSPITAL Main [place] [address] [place] [address] XRay Report Signed Patient: Esme Kaminski MR#: [id number] : 1960 Acct:[id number] Age/Sex: 63 / M ADM Date: 09/30/24 Loc: Room: [address] [place] [address] Type: DIS INOo Attending Dr: Leidy Nuno [...] Jr DO 09/30/241453 Signed By: 09/30/24 1456[facility] Physician GrouppH of Urine by Test stripOrdered By: Radha Medina on 52-56-6397mI (U)5.5 [pH]Normal5.0-9.0[facility] HospitalComment on above:Order Comment: Name Collection Type:: Clean- Voided MidstreamPerformed By: #### PT, PTT #### [place] [address] USABNP ser/plasOrdered By: Salinas Ascencio on 09-29-2024 Natriuretic peptide B (Bld) [Mass/Vol]417.0 pg/mLBeckley Appalachian Regional Hospital5-100A[facility] Community HospitalComment on above:Result Comment: PERFORMED BY: [place] [address] PATHOLOGIST COASTAL AND ESTUARY SPECIALIST RYAN ALMARAZ M.D.Performed By: #### PT #### [place] [address] USABasic Metabolic Panelon 18-90-3633Vsxdsparrr Clr Calc Dyckgulg652.50NormalThe [facility] Physician GroupComment on above:Order Comment: FASTING YPerformed By: #### PT #### [place] [address] USAGFR/1.73 sq M.predicted MDRD (S/P/Bld) [Vol rate/Area] mL/min/{1.73_m2}NormalThe [facility] Physician [facility] HospitalComment on above:Order Comment: FASTING YPerformed By: #### PT #### [place] [address] USABasophils [#/volume] in Blood by Automated countOrdered By: Salinas Ascencio on 66-53-9716Yabmiaprz (Bld) [#/Vol]0.1 10*3/uLNormal 0.0-0.2FDetwiler Memorial HospitalComment on above:Result Comment: PERFORMED BY: [place] [address] PATHOLOGIST COASTAL AND ESTUARY SPECIALIST RYAN ALMARAZ M.D.Performed By: #### PT #### [place] [address] USABasophils/100 leukocytes in Blood by Automated count Ordered By: Salinas Ascencio on 63-88-5614Tnrulfmxx/100 WBC (Bld)1.0 %Normal .[facility] Community HospitalComment on above:Performed By: #### PT #### [facility] [address] [place] [address] USACalcium [Mass/volume] in Serum or PlasmaOrdered By: Salinas Ascencio on 22-96-3119Qvyprgi [Mass/Vol]8.9 mg/dLNormal8.6-10.3 [facility] HospitalComment on above:Order Comment: FASTING Y Performed By: #### PT #### [facility] [address] [place], [place] [id number] USACarbon dioxide, total [Moles/volume] in Serum or Plasma Ordered By: Salinas Ascencio on 87-47-3464HM3 [Moles/Vol]24.6 mmol/LNormal 21.0-31.0[facility] HospitalComment on above:Order Comment: FASTING YPerformed By: #### PT #### [facility] [address] [place] [address] USAChloride [Moles/volume] in Serum or PlasmaOrdered By: Salinas Ascencio on 43-26-5355Wxtddstg [Moles/Vol]104 mmol/UYugwbv00-257 [facility] HospitalComment on above:Order Comment: FASTING Y Performed By: #### PT #### [facility] [address] [place] [address] USACholesterol [Mass/volume] in Serum or PlasmaOrdered By: Salinas Ascencio on 04-27-8695Mxcirujrknv [Mass/Vol]194 mg/jQFjnxjn879-476 [facility] HospitalComment on above:Chol less than 200 mg/dl low riskChol 201-239 mg/dl borderline riskChol 240 mg/dl and greater high riskOrder Comment: FASTING YResult Comment: Chol less than 200 mg/dl low risk Chol 201-239 mg/dl borderline risk Chol 240 mg/dl and greater high riskPerformed By: #### PT #### [facility] [address] [place] [address] USACholesterol in HDL [Mass/volume] in Serum or PlasmaOrdered By: Salinas Ascencio on 52-64-2326Ezughuthhgk in HDL [Mass/Vol]36 mg/dL Xshvxr92-88NlwpyduztAultman Alliance Community HospitalComment on above:HDL CHOL ATP-III CLASSIFICATION Cardiovascular RiskHDL > or equal to 60 mg/dL LOWHDL < 40 mg/dL HIGHOrder Comment: FASTING YResult Comment: HDL CHOL ATP-III CLASSIFICATION Cardiovascular Risk HDL > or equal to 60 mg/dL LOW HDL < 40 mg/dL HIGHPerformed By: #### PT #### [facility] [address] [place] [address] USACholesterol in LDL Calc [Mass/Vol]Ordered By: Salinas Ascencio on 59-26-5749Ljurskstwzl in LDL [Mass/Vol]103 mg/dLHigh0-100[facility] HospitalComment on above:LDL ATP III CLASSIFICATIONLDL less than 100 mg/dL OptimalLDL 100-129 mg/dL Near or above jyetaqkANO206-839 mg/dL Borderline highLDL 160-189 mg/dL HighLDL greater than 189 mg/dL Very high Cholesterol in VLDL Calc [Mass/Vol]Ordered By: Salinas Ascencio on 98-28-1999Uxwuriiydqg in VLDL [Mass/Vol]54 mg/dLAultman Alliance Community HospitalComplete Blood Count Auto Diffon 35-38-8904Avds Corpuscular HGB Conc33.7 g/lDZuejtr74.5-35.6The [facility] Physician GroupComment on above:Performed By: #### PT #### [facility] [address] [place] [address] USANRBC%0.2 /100{WBC}Normal0-0.5[facility] Comment on above:Performed By: #### PT #### [facility] [address] [place] [address] USAWhite Blood Count13.0 [CFU]/mLHigh4.1-10.5The [facility] Physician GroupComment on above:Performed By: #### PT #### [facility] [address] [place] [address] USACreatinine [Mass/volume] in Serum or PlasmaOrdered By: Salinas Ascencoi on 58-46-3613Wtagmzyfux [Mass/Vol]0.80 mg/dLNormal0.70-1.30 [facility] HospitalComment on above:Order Comment: FASTING Y Performed By: #### PT #### [facility] [address] [place] [id number] USAECG 12 lead ECGon 43-49-9578SVY 12 lead ECGPROTESTANT [place] [address] Electrocardiograph Report Signed Patient: Esme Kaminski MR#: [id number] : 1960 Acct:[id number] Age/Sex: 63 / M ADM Date: 09/29/24 Loc: Room: [address] [place] [address] Type: ADM INOo Attending Dr: Tomy Cabello [...] in Lateral leads Confirmed by Will Koch ([id number]) on 09/29/2024 2:14:15 PM Referred By: Electronically Signed By: Will Koch Transcribed By: MUS Signed By Will Koch MD 09/29/[address] [place] [address] Physician GroupECG 12 lead ECGPROTESTANT DEACONESS HOSPITAL Main [place] [id number] Electrocardiograph Report Signed Patient: Esme Kaminski MR#: [id number] : 1960 Acct:[id number] Age/Sex: 63 / M ADM Date: 09/29/24 Loc: Room: [address] [place] [address] Type: ADM INOo Attending Dr: Tomy Cabello [...] undetermined Abnormal ECG Confirmed by Will Koch ([id number]) on 09/29/2024 2:14:06 PM Referred By: Electronically Signed By: Will Koch Transcribed By: MUS Signed By Will Koch MD 09/29/[address] [place] [address] Physician GroupEosinophils [#/volume] in Blood by Automated countOrdered By: Salinas Ascencio on 89-73-5001Oqixuyyifkf (Bld) [#/Vol]0.1 10*3/uLNormal0.0-0.45[facility] HospitalComment on above:Performed By: #### PT #### [facility] [address] [place] [id number] USAEosinophils/100 leukocytes in Blood by Automated count Ordered By: Salinas Ascencio on 00-59-7600Bpowswaethv/100 WBC (Bld)0.6 % Normal.[facility] HospitalComment on above:Performed By: #### PT #### [facility] [address] [place] [id number] USAErythrocyte distribution width [Ratio] by Automated count Ordered By: Salinas Ascencio on 65-69-9827Bkjgammucge distribution width (RBC) [Ratio]14.3 %Yqjjrg06.0-14.8Fire[facility] Regional Medical CenterComment on above:Performed By: #### PT #### [facility] [address] [place] [address] USAErythrocytes [#/volume] in Blood by Automated countOrdered By: Salinas Ascencio on 76-20-6734YRL (Bld) [#/Vol]4.62 10*6/uLNormal 3.90-5.60[facility] HospitalComment on above:Performed By: #### PT #### [facility] [address] [place] [id number] USAGlucose [Mass/volume] in Serum or PlasmaOrdered By: Salinas Ascencio on 17-59-5337Jisceqb [Mass/Vol]91 mg/yDLxjhjw90-938 [facility] HospitalComment on above:ADA recommended reference rangeRandom Glucose [...] recommended reference rangePerformed By: #### PT #### [facility] [address] [place] [id number] USAHematocrit [Volume Fraction] of Blood by Automated count Ordered By: Salinas Ascencio on 40-06-2676Odcbetzxdp (Bld) [Volume fraction] 47.6 %Vnlmjh43.8-50.0[facility] HospitalComment on above:Performed By: #### PT #### [facility] [address] [place] [address] USAHemoglobin [Mass/volume] in BloodOrdered By: Salinas Ascencio on 04-44-7755Ampnpesmmc (Bld) [Mass/Vol]16.0 g/eNKddayx77.0-17.0 [facility] HospitalComment on above:Performed By: #### PT #### [facility] [address] [place] [id number] USAINR in Platelet poor plasma by Coagulation assayOrdered By: Salinas Ascencio on 21-94-2798JUG Coag (PPP) [Relative time]1.0 {INR} [facility] HospitalComment on above:INR Therapeutic Range A) Pre- [...] 3 - 4.5Performed By: #### LYTES #### [facility] [address] [place] [address] USALeukocytes [#/volume] corrected for nucleated erythrocytes in Blood by Automated counOrdered By: Salinas Ascencio on 23-05-5121ZEO corrected for nucl RBC Auto (Bld) [#/Vol]13.0 10*3/uLHigh4.1-10.5FDetwiler Memorial HospitalLeukocytes [#/volume] in Blood by Automated countOrdered By: Salinas Ascencio on 41-87-2723FAK (Bld) [#/Vol]13.0 10*3/uLHigh4.1-10.5 [facility] HospitalComment on above:Performed By: #### PT #### [facility] [address] [place] [id number] USALipid Panelon 82-48-1789UKM Cholesterol,Zhbywmchcq316 mg/dLHigh0-100The [facility] Physician GroupComment on above:Order Comment: FASTING YResult Comment: LDL ATP III CLASSIFICATION LDL less than 100 mg/dL Optimal LDL 100-129 mg/dL Near or above optimal LDL 130-159 mg/dL Borderline high LDL 160-189 mg/dL High LDL greater than 189 mg/dL Very highPerformed By: #### PT #### [facility] [address] [place] [phone] USATriglyceride w/Jppipp977 mg/dLHigh0-149The [facility] Physician GroupComment on above:Order Comment: FASTING YResult Comment: TRIG ATP III CLASSIFICATION TRIG less than 150 mg/dL Normal TRIG 150-199 mg/dL Borderline high TRIG 200-500 mg/dL High TRIG greater than 500 mg/dL Very high Standard traceable to the Center for Disease Conrtrol and Prevention (CDC) test method.Performed By: #### PT #### [facility] [address] [place] [address] USAVLDL ZAOKKRJOIRA75 mg/dLNormalThe [facility] Physician GroupComment on above:Order Comment: FASTING YPerformed By: #### PT #### [place] [address] USALymphocytes [#/volume] in Blood by Automated countOrdered By: Salinas Ascencio on 14-70-6780Ylfkgkzrwvk (Bld) [#/Vol]2.2 10*3/uLNormal 1.00-4.8[facility] HospitalComment on above:Performed By: #### PT #### [place] [id number] USALymphocytes/100 leukocytes in Blood by Automated count Ordered By: Salinas Ascencio on 32-01-1218Bryheusdfws/100 WBC (Bld)16.8 % Normal.[facility] HospitalComment on above:Performed By: #### PT #### [place] [id number] USAH [Entitic mass] by Automated countOrdered By: Salinas Ascencio on 20-06-1761CRD (RBC) [Entitic mass]34.7 cqXxtmoa23.5-35.2 [facility] HospitalComment on above:Performed By: #### PT #### [place] [id number] USAMCHC Auto (RBC) [Mass/Vol]Ordered By: Salinas Ascencio on 96-29-3979XADQ (RBC) [Mass/Vol]33.7 g/dL32.5-35.6FDetwiler Memorial HospitalMCV [Entitic volume] by Automated countOrdered By: Salinas Ascencio on 56-33-2353BEV (RBC) [Entitic vol]103.0 lUQzwz14.5-101[facility] HospitalComment on above:Performed By: #### PT #### [facility] [address] [place] [address] USAMagnesium [Mass/volume] in Serum or PlasmaOrdered By: Salinas Ascencio on 45-35-8243Kfnzkfhsb [Mass/Vol]1.6 mg/dLLow1.9-2.7 [facility] HospitalComment on above:Order Comment: FASTING Y Performed By: #### PT #### [place] [address] USAMonocytes [#/volume] in Blood by Automated countOrdered By: Salinas Ascencio on 83-42-2998Doyrwskyk (Bld) [#/Vol]1.1 10*3/uLHigh 0.0-0.8[facility] HospitalComment on above:Performed By: #### PT #### [facility] [address] [place] [address] USAMonocytes/100 leukocytes in Blood by Automated count Ordered By: Salinas Ascencio on 29-13-0879Swnosfwwf/100 WBC (Bld)8.8 %Normal .[facility] HospitalComment on above:Performed By: #### PT #### [place] [address] USANeutrophils [#/volume] in Blood by Automated countOrdered By: Salinas Ascencio on 72-06-4648Iaycpdkgioj (Bld) [#/Vol]9.4 10*3/uLHigh 1.8-7.7FDetwiler Memorial HospitalComment on above:Performed By: #### PT #### [place] [id number] USANeutrophils/100 leukocytes in Blood by Automated count Ordered By: Salinas Ascencio on 89-16-0258Qmzsmgnewni/100 WBC (Bld)72.8 % Normal.[facility] HospitalComment on above:Performed By: #### PT #### [facility] [address] [place] [address] USANo Panel InformationOrdered By: Salinas Ascencio on 18-18-3426Maotkctgb GFR (CKD-EPI)> 60.0 mL/MinAultman Alliance Community Hospital Pharmacy Creatinine Clearance (Upaa987.50[facility] Nucleated erythrocytes [Presence] in Blood by Automated countOrdered By: Salinas Ascencio on 32-20-7713Safjcfcnm RBC Auto Ql (Bld)0.2 /100{WBC}0-0.5 [facility] HospitalPartial Thromboplastin Timeon 31-85-7480zIAP Coag (Bld) [Time]23.1 sLow25.1-36.5The [facility] Physician GroupComment on above:Result Comment: A hematocrit value greater than 55% may lead to inaccurate results in coagulation testing. Patients having hematocrit values >55% require a special collection tube for coagulation studies. Please contact the laboratory at [phone] for redraw instructions. PERFORMED BY: [address] [place] [address] PATHOLOGIST COASTAL AND ESTUARY SPECIALIST RYAN ALMARAZ M.D.Performed By: #### LYTES #### [facility] [address] [place], [place] [id number] USAPlatelet mean volume [Entitic volume] in Blood by Automated countOrdered By: Salinas Ascencio on 31-35-2158Vxtgjhce mean volume (Bld) [Entitic vol]9.6 fLNormal6.6-10.1FDetwiler Memorial Hospital Comment on above:Performed By: #### PT #### [facility] [address] [place], [place] [address] USAPlatelets [#/volume] in Blood by Automated countOrdered By: Salinas Ascencio on 22-35-1037Cnbybvxnn (Bld) [#/Vol]184 10*3/uLNormal 150-450[facility] HospitalComment on above:Performed By: #### PT #### [facility] [address] [place] [address] USAPotassium [Moles/volume] in Serum or PlasmaOrdered By: Salinas Ascencio on 11-70-4036Olmfjqlut [Moles/Vol]3.6 mmol/LNormal3.5-5.1 [facility] HospitalComment on above:Hemolysis is present at a level that could interfere with the result.Contact lab if redraw is required Order Comment: FASTING YResult Comment: Hemolysis is present at a level that could interfere with the result. Contact lab if redraw is requiredPerformed By: #### PT #### [facility] [address] [place] [address] USAProthrombin time (PT)Ordered By: Salinas Ascencio on 86-38-0744GU Coag (PPP) [Time]11.5 sNormal9.0-12.9[facility] HospitalComment on above:A hematocrit value greater than 55% may lead to inaccurate results in coagulation testing. Patientshaving hematocrit values >55% require a special collection tube for coagulation studies. Please contact the laboratory at [phone] for redraw instructions.Result Comment: A hematocrit value greater than 55% may lead to inaccurate results in coagulation testing. Patients having hematocrit values >55% require a special collection tube for coagulation studies. Please contact the laboratory at [phone] for redraw instructions.Performed By: #### LYTES #### [facility] [address] [place] [address] USASerum or plasma anion gap determinationOrdered By: Salinas Ascencio on 10-93-1821Uxtqp gap [Moles/Vol]11.0 mmol/LNormal6.0-15.0 [facility] HospitalComment on above:Order Comment: FASTING Y Performed By: #### PT #### [facility] [address] [place] [address] USASerum or plasma total cholesterol/high density lipoprotein (HDL) cholesterol mass ratOrdered By: Salinas Ascencio on 09-29-2024 Cholesterol.total/Cholesterol in HDL [Mass ratio]5.4 {ratio}Normal<5.0[facility] HospitalComment on above:Order Comment: FASTING YResult Comment: PERFORMED BY: [place] [id number] PATHOLOGIST COASTAL AND ESTUARY SPECIALIST RYAN ALMARAZ M.D.Performed By: #### PT #### [address] [address] USASodium [Moles/volume] in Serum or PlasmaOrdered By: Salinas Ascencio on 06-68-8303Xohfkk [Moles/Vol]136 mmol/VIkpkrs341-848 [facility] HospitalComment on above:Order Comment: FASTING Y Performed By: #### PT #### [facility] [address] [place] [address] USATriglyceride [Mass/volume] in Serum or PlasmaOrdered By: Salinas Ascencio on 24-24-9950Duubgwjhknee [Mass/Vol]273 mg/dLHigh0-149 [facility] HospitalComment on above:TRIG ATP III CLASSIFICATIONTRIG less than 150 mg/dL NormalTRIG 150-199 mg/dL Borderline highTRIG 200-500 mg/dL High TRIG greater than 500 mg/dL Very highStandard traceable to the Center for Disease Conrtrol and Prevention (CDC) test method. Troponin I High Sensitivityon 45-51-9473Ovuglcpy I High Vgdzqqznyph40Ptigje3-67 [facility] Physician GroupComment on above:Result Comment: The Troponin units of report have been changed to meet the Chest Pain Accreditation requirement, element EC5.M1l2. Troponin units are changed from pg/ml to ng/L. Also, the decimal is removed and results are in whole numbers. PERFORMED BY: [address] [address] PATHOLOGIST COASTAL AND ESTUARY SPECIALIST RYAN S RUFINA M.D.Performed By: #### LYTES #### [facility] [address] [place] [address] USATroponin I High Kbazydryiti02Esmmhz8-08Kyj [facility] Physician GroupComment on above:Result Comment: The Troponin units of report have been changed to meet the Chest Pain Accreditation requirement, element EC5.M1l2. Troponin units are changed from pg/ml to ng/L. Also, the decimal is removed and results are in whole numbers. PERFORMED BY: [place] [address] PATHOLOGIST COASTAL AND ESTUARY SPECIALIST RYAN ALMARAZ M.D.Performed By: #### HS TROP ####[facility] [place] [address] USATroponin I High Iujvwdsetke28Edoerf 0-20ThNorth Canyon Medical Center Physician GroupComment on above:Result Comment: The Troponin units of report have been changed to meet the Chest Pain Accreditation requirement, element EC5.M1l2. Troponin units are changed from pg/ml to ng/L. Also, the decimal is removed and results are in whole numbers. PERFORMED BY: [place] [address] PATHOLOGIST COASTAL AND ESTUARY SPECIALIST RYAN ALMARAZ M.D.Performed By: #### LYTES #### [address] [address] USATroponin I.cardiac [Mass/volume] in Serum or Plasma by Detection limit <= 0.01 ng/mLOrdered By: Salinas Ascencio on 09-29-2024 Troponin I.cardiac DL <= 0.01 ng/mL [Mass/Vol]10 ng/L0-20[facility] HospitalComment on above:The Troponin units of report have been changed to meet the Chest Pain Accreditation requirement, element EC5.M1l2. Troponin units are changed from pg/ml to ng/L. Also, the decimal is removed and results are in whole numbers.Urea nitrogen [Mass/volume] in Serum or PlasmaOrdered By: Salinas Ascencio on 98-57-6696Nnwz nitrogen [Mass/Vol]20 mg/dLNormal7-25 [facility] HospitalComment on above:Order Comment: FASTING Y Performed By: #### PT #### [facility] [address] [place] [id number] USAaPTT in Platelet poor plasma by Coagulation assayOrdered By: Salinas Ascecnio on 02-09-7650wUBC Coag (PPP) [Time]23.1 sLow25.1-36.5 [facility] HospitalComment on above:A hematocrit value greater than 55% may lead to inaccurate results in coagulation testing. Patientshaving hematocrit values >55% require a special collection tube for coagulation studies. Please contact the laboratory at [phone] for redraw instructions. Basophils Auto (Bld) [#/Vol]Ordered By: Fang Zhu on 46-36-1582Fovypuvxw (Bld) [#/Vol]0.1 10 3/uL0.0-0.1FDetwiler Memorial HospitalBasophils/100 WBC Auto (Bld)Ordered By: Fang Zhu on 10-03-2563Ttfvimwoc/100 WBC (Bld)0.4 % 0.2-2.0[facility] HospitalEosinophils/100 WBC Auto (Bld)Ordered By: Fang Zhu on 86-23-8965Xsrxgattpcw/100 WBC (Bld)0.1 %Low0.9-7.0[facility] HospitalErythrocyte distribution width Auto (RBC) [Ratio]Ordered By: Fang Zhu on 11-04-1606Ldtriqdvort distribution width (RBC) [Ratio]13.0 % 11.0-15.0[facility] HospitalEstimated glomerular filtration rate (GFR) non- AmericanOrdered By: Fang Zhu on 58-51-1805TXN/1.73 sq M.predicted among non-blacks MDRD (S/P/Bld) [Vol rate/Area]58 mL/min/{1.73_m2} Low>=60 mL/min/1.73m 2FDetwiler Memorial HospitalGlobulin Calc (S) [Mass/Vol]Ordered By: Fang Zhu on 11-15-4389Zzofaido (S) [Mass/Vol]3.9 g/dL [facility] HospitalHematocrit Auto (Bld) [Volume fraction]Ordered By: Fang Zhu on 80-84-8184Xxkhqngunv (Bld) [Volume fraction]49.1 %42.0-54.0 [facility] HospitalHemoglobin [Mass/volume] in BloodOrdered By: Fang Zhu on 53-11-9103Acuomkdawa (Bld) [Mass/Vol]17.1 g/dL14.0-18.0[facility] HospitalINR in Platelet poor plasma by Coagulation assayOrdered By: Fang Zhu on 43-13-5518QMW Coag (PPP) [Relative time]1.09 {INR}[facility] HospitalComment on above:DESIRED INR:2.0-3.0 CONDITIONS NOT LISTED BELOW2.5-3.5 FOR PROSTHETIC HEART VALVE REPLACEMENT2.5-3.5 RECURRENT THROMBOSISLaboratory - Chemistry and Chemistry - challengeOrdered By: Fang Zhu on 65-62-3368Nlzytsq [Mass/Vol]4.0 g/dL3.4-5.0[facility] HospitalALP [Catalytic activity/Vol]74 U/D25-555FaqocdealAultman Alliance Community Hospital ALT [Catalytic activity/Vol]53 U/N40-32PegjticdiAultman Alliance Community HospitalAST [Catalytic activity/Vol]28 U/Z46-67EgcefoabmAultman Alliance Community HospitalBilirubin [Mass/Vol]1.5 mg/dLHigh0.2-1.0[facility] HospitalCalcium [Mass/Vol]9.2 mg/dL8.5-10.1FDetwiler Memorial HospitalChloride [Moles/Vol] 100 mmol/A73-651LufchijpuAultman Alliance Community HospitalCO2 [Moles/Vol]24.1 mmol/L 21.0-32.0[facility] HospitalCreatinine [Mass/Vol]1.25 mg/dL 0.70-1.30[facility] HospitalGFR/1.73 sq M.predicted MDRD (S/P/Bld) [Vol rate/Area]mL/min/{1.73_m2}>=60 mL/min/1.73m 2FDetwiler Memorial HospitalGlucose [Mass/Vol]229 mg/zQFnva93-549Fmljlwfpi [facility] Potassium [Moles/Vol]4.0 mmol/L3.5-5.1FDetwiler Memorial HospitalProtein [Mass/Vol]7.9 g/dL6.4-8.2FSelect Medical Cleveland Clinic Rehabilitation Hospital, Edwin Shawodium [Moles/Vol]137 mmol/F150-902LiodvacenAultman Alliance Community HospitalUrea nitrogen [Mass/Vol]30.0 mg/dL High7.0-18.0[facility] HospitalUrea nitrogen/Creatinine [Mass ratio]24.0 mg/mgAultman Alliance Community HospitalLaboratory - Hematology and Cell countsOrdered By: Fang Zhu on 88-05-3386Zivelbnj granulocytes/100 WBC (Bld)0.7 %High0.0-0.5FDetwiler Memorial HospitalLeukocytes [#/volume] corrected for nucleated erythrocytes in Blood by Automated counOrdered By: Fang Zhu on 13-31-6366VJX corrected for nucl RBC Auto (Bld) [#/Vol]15.1 10 3/uLHigh4.0-11.0[facility] HospitalLymphocytes Auto (Bld) [#/Vol] Ordered By: Fang Zhu on 83-97-7521Zkapvudjyav (Bld) [#/Vol]1.7 10 3/uL1.2-3.8 [facility] HospitalLymphocytes/100 WBC Auto (Bld)Ordered By: Fang Zhu on 23-30-7976Mobympucshj/100 WBC (Bld)11.0 %Low20.5-60.0[facility] Hospital, BeachwoodH Auto (RBC) [Entitic mass]Ordered By: Fang Zhu on 23-69-2920BKM (RBC) [Entitic mass]34.4 vuRbda87.9-34.0[facility] HospitalMCHC Auto (RBC) [Mass/Vol]Ordered By: Fang Zhu on 49-66-5838JYLA (RBC) [Mass/Vol]34.8 g/dL29.9-35.2FDetwiler Memorial HospitalMCV Auto (RBC) [Entitic vol]Ordered By: Fang Zhu on 87-71-1810DSI (RBC) [Entitic vol]98.8 fL High80.0-94.0[facility] HospitalMonocytes Auto (Bld) [#/Vol] Ordered By: [facility] on 77-62-3319Gczcangsu (Bld) [#/Vol]0.5 10 3/uL0.3-0.8 [facility] HospitalMonocytes/100 WBC Auto (Bld)Ordered By: Fang Audra on 33-29-4354Zmossyvfp/100 WBC (Bld)3.4 %1.7-12.0[facility] HospitalNeutrophils Auto (Bld) [#/Vol]Ordered By: [facility] Audra on 09-28-2024 Neutrophils (Bld) [#/Vol]12.8 10 3/uLHigh1.4-6.5FDetwiler Memorial HospitalNeutrophils/100 WBC Auto (Bld)Ordered By: Fang Audra on 09-28-2024 Neutrophils/100 WBC (Bld)84.4 %High43.0-75.0[facility] HospitalNo Panel InformationOrdered By: [facility] on 74-89-9014Fctvzfjf I High Sensitivity9.5 pg/mL4.0-76.1FDetwiler Memorial HospitalComment on above: CUT-OFF POINTS HAVE BEEN [...] DIAGNOSTIC AND CLINICAL INFORMATION.Eosinophils # (Auto)0.0 10 3/uL0.0-0.7FDetwiler Memorial HospitalImmature Granulocyte # (Auto)0.11 10 3/uLHigh0.00-0.03[facility] HospitalPlatelet mean volume Auto (Bld) [Entitic vol]Ordered By: Fang Zhu on 68-94-1252Cbiddgkg mean volume (Bld) [Entitic vol]11.0 fL9.5-13.5 [facility] HospitalPlatelets Auto (Bld) [#/Vol]Ordered By: Fang Zhu on 93-43-3253Vtbpttteq (Bld) [#/Vol]265 10 3/kO413-857FqdssiosfAultman Alliance Community HospitalProthrombin time (PT)Ordered By: Fang Zhu on 46-12-5325QA Coag (PPP) [Time]11.5 s9.0-11.6FDetwiler Memorial HospitalRBC Auto (Bld) [#/Vol]Ordered By: Fang Zhu on 18-60-3292UES (Bld) [#/Vol]4.97 10 6/uL 4.70-6.10City Hospitalerum or plasma albumin/globulin mass ratioOrdered By: Fang Zhu on 04-95-4760Pldagxa/Globulin [Mass ratio]1.0 {ratio}City Hospitalerum or plasma anion gap determination Ordered By: Fang Zhu on 63-36-7456Ybkec gap [Moles/Vol]16.9 mmol/LFDetwiler Memorial HospitalCNPNon 38-70-4117TDVHIwrsguuya (RHEUAV) ESME KAMINSKI ([id number]) 1960 M Date Time Provider Department 09/13/24 [...] - Fully Assessed Reason for Visit: Orders [321] Appointment [186] Prescriptions as of 09/26/2024 - [...] Idiopathic chronic gout of multiple sites witho*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 [Z79*01/05/2023 CHENCHO positive [R76.8] 01/05/2023 Bilateral hand swelling [M79.89] 01/05/2023 Chronic pain of both knees [M25.561, M25.562, G*03/05/2023 Leg weakness, bilateral [R29.898] 06/30/2024 Encounter Status:Closed by DEBRA GEE on 09/26/24NoHol[facility] – JacksonCarbon dioxide, total [Moles/volume] in Serum or PlasmaOrdered By: Antonio Steele on 50-30-6564YF4 [Moles/Vol]Carbon dioxide, total [Moles/volume] in Serum or Tsdgxa98.0-31.0[facility] HospitalCO2 [Moles/Vol]26.3 mmol/ESxqhca73.0-31.0[facility] HospitalComment on above:Performed By: #### DIMITRIOS #### [facility] [address] [place], [place] [id number] USAChloride [Moles/volume] in Serum or PlasmaOrdered By: Antonio Steele on 51-54-3043Ueqhjtpu [Moles/Vol]Chloride [Moles/volume] in Serum or MounrmGgo99-720IkbkqqllnAultman Alliance Community HospitalChloride [Moles/Vol]96 mmol/JJna37-173WddandxraAultman Alliance Community HospitalComment on above:Performed By: #### LYCORNELL #### [facility] [address] [place], [place] [id number] USAECG 12 lead ECGon 06-17-3464PDT 12 lead ECGPROTESTANT [facility] Main [place] [address] [place] [address] Electrocardiograph Report Signed Patient: Esme Kaminski MR#: [id number] : 1960 Acct:[id number] Age/Sex: 63 / M ADM Date: 09/09/24 Loc: Room: Type: [facility] Attending Dr: Antonio Steele MD Ordering Provider: [...] is now present Confirmed by Will Koch ([id number]) on 09/09/2024 11:28:31 AM Referred By: Electronically Signed By: Will Koch Transcribed By: MUS Signed By Will Koch MD 09/09/24 1128[facility] Physician GroupECG post procedureon 09-09-2024 ECG post procedurePROTESTANT [facility] Main [place] [address] [place] [address] Electrocardiograph Report Signed Patient: Esme Kaminski MR#: [id number] : 1960 Acct:[id number] Age/Sex: 63 / M ADM Date: 09/09/24 Loc: Room: Type: [facility] Attending Dr: Antonio Steele MD Ordering Provider: [...] in Lateral leads Confirmed by Ada Woodruff ([id number]) on 09/09/2024 5:08:22 PM Referred By: Electronically Signed By: Ada Woodruff Transcribed By: MUS Signed By Ada Woodruff MD [address] [place] [address] Physician GroupPotassium [Moles/volume] in Serum or PlasmaOrdered By: Antonio Steele on 65-52-2789Mcdurcpsd [Moles/Vol]Potassium [Moles/volume] in Serum or Plasma3.5-5.1FDetwiler Memorial Hospital Potassium [Moles/Vol]4.0 mmol/LNormal3.5-5.1FDetwiler Memorial Hospital Comment on above:Performed By: #### LYTES #### [place] [address] USASerum or plasma anion gap determinationOrdered By: Antonio Steele on 41-94-4898Yukhm gap [Moles/Vol]Serum or plasma anion gap determination6.0-15.0[facility] HospitalAnion gap [Moles/Vol]14.7 mmol/LNormal6.0-15.0[facility] HospitalComment on above:Result Comment: PERFORMED BY: [facility] [address] [place] [id number] PATHOLOGIST COASTAL AND ESTUARY SPECIALIST RYAN ALMARAZ M.D.Performed By: #### DIMITRIOS #### [facility] [address] [place] [id number] USASodium [Moles/volume] in Serum or PlasmaOrdered By: Antonio Steele on 71-22-6772Bjjdbq [Moles/Vol]Sodium [Moles/volume] in Serum or EgetzePjt293-315DrcmpavivCity Hospitalodium [Moles/Vol]133 mmol/QBhz094-974NlvwkekvgAultman Alliance Community HospitalComment on above:Performed By: #### DIMITRIOS #### [facility] [address] [place] [id number] USACNPNon 35-55-4957YLPFIxkovbmib (ADIELULN) ESME KAMINSKI ([id number]) 1960 M Date Time Provider Department 08/31/24 HELADIO PINEDA During your visit today, we recorded the following information about you: Heladio Pineda MD 08/31/2024 1:10 PM Signed Please call patent To schedule nonfasting labs Active in 07/2024. Ok to complete at [facility] [place]. Please schedule earlier follow up visit for [...] 06/30/2024 Encounter Status:Closed by ILEANA STRONG on 09/02/24[facility] [address] 34-15-4308Fmyapd fibrillation with controlled rate with old inferior [facility] Work Phone: [facility] Work Phone: alanine aminotransferase [Enzymatic activity/volume] in Serum or PlasmaOrdered By: Lydia Connelly on 83-31-5108MFZ [Catalytic activity/Vol]Alanine aminotransferase [Enzymatic activity/volume] in Serum or Plasma[address] StreetALT [Catalytic activity/Vol]86 U/LH49 [address] StreetComment on above:Performed By: #### LYTES #### [facility] [address] [place] [address] USAAlbumin [Mass/volume] in Serum or Plasma by Bromocresol green (BCG) dye binding methoOrdered By: Lydia Connelly on 59-52-1606Aakazrs BCG dye [Mass/Vol]Albumin [Mass/volume] in Serum or Plasma by Bromocresol green (BCG) dye binding metho3.5-5.7FDetwiler Memorial HospitalAlbumin BCG dye [Mass/Vol]3.5 g/dL3.5-5.7FDetwiler Memorial HospitalAlkaline phosphatase [Enzymatic activity/volume] in Serum or PlasmaOrdered By: Lydia Connelly on 74-41-3155TNP [Catalytic activity/Vol]Alkaline phosphatase [Enzymatic activity/volume] in Serum or Jqnkhh83-588Xihillioq[address] [place], [place] [address]ALP [Catalytic activity/Vol]73 U/HNokoat34-576Fijhfdllf[address] [place] [address] Comment on above:Performed By: #### LYTES #### [place] [address] USAAspartate aminotransferase [Enzymatic activity/volume] in Serum or PlasmaOrdered By: Lydia Connelly on 24-01-2959XLU [Catalytic activity/Vol]Aspartate aminotransferase [Enzymatic activity/volume] in Serum or Lhahxt54-01Grpjmzqhe[address] [place], [place] [address]AST [Catalytic activity/Vol]31 U/L Tlvpox80-22Tbxhggwry[address] [place], [place] [address]Comment on above:Performed By: #### LYTES #### [facility] [address] [place] [address] USABasophils Auto (Bld) [#/Vol]Ordered By: Lydia Connelly on 28-07-2743Ljouvgjbj (Bld) [#/Vol]Automated basophil count0.0-0.2FDetwiler Memorial HospitalBasophils [#/volume] in Blood by Automated countOrdered By: Lydia Connelly on 35-31-1224Ghrqcoqvf (Bld) [#/Vol]0.1 10*3/uLNormal0.0-0.2 [facility] HospitalComment on above:Result Comment: PERFORMED BY: [facility] [address] [place] [address] PATHOLOGIST COASTAL AND ESTUARY SPECIALIST OSCAR HAY M.D.Performed By: #### LYTES #### [facility] [address] [place] [id number] USABasophils/100 WBC Auto (Bld)Ordered By: Lydia Connelly on 05-97-7274Wiikrslfb/100 WBC (Bld)Automated basophil %.[facility] HospitalBasophils/100 leukocytes in Blood by Automated countOrdered By: Lydia Connelly on 45-09-4184Vuacqyinp/100 WBC (Bld)0.8 %Normal.[facility] HospitalComment on above:Performed By: #### LYTES #### [facility] [address] [place] [id number] USABilirubin.total [Mass/volume] in Serum or PlasmaOrdered By: Lydia Connelly on 44-30-7049Xcrijaaws [Mass/Vol]Bilirubin.total [Mass/volume] in Serum or PlasmaHigh0.3-1.0[facility] HospitalComment on above: Samples from patients who have taken Naproxen have shown spurious elevation in Total Bilirubin levels. A metabolite of Naproxen, O-desmethylnaproxen, has been shown to interfere with the Jendrassik-Grof method for measuring Total Bilirubin.Bilirubin [Mass/Vol]1.4 mg/dLHigh0.3-1.0[facility] HospitalComment on above:Samples from patients who have [...] measuring Total Bilirubin.Performed By: #### LYTES #### [facility] [address] [place] [phone] USACalcium [Mass/volume] in Serum or PlasmaOrdered By: Lydia Connelly on 25-73-9482Ehhnoyb [Mass/Vol]Calcium [Mass/volume] in Serum or Plasma8.6-10.3FDetwiler Memorial HospitalCalcium [Mass/Vol]8.9 mg/dLNormal 8.6-10.3FDetwiler Memorial HospitalComment on above:Performed By: #### LYTES #### [facility] [address] [place] [address] USACarbon dioxide, total [Moles/volume] in Serum or Plasma Ordered By: Lydia Connelly on 84-87-9659GN3 [Moles/Vol]Carbon dioxide, total [Moles/volume] in Serum or Sslkxv60.0-31.0[facility] HospitalCO2 [Moles/Vol]25.4 mmol/JWdrxbb54.0-31.0[facility] HospitalComment on above:Performed By: #### LYTES #### [place] [address] USAChloride [Moles/volume] in Serum or PlasmaOrdered By: Lydia Connelly on 25-05-4941Wtorzsql [Moles/Vol]Chloride [Moles/volume] in Serum or Lpqmof21-492KerfwysgeAultman Alliance Community HospitalChloride [Moles/Vol]102 mmol/L Owyywz58-053WcrcgtkgbAultman Alliance Community HospitalComment on above:Performed By: #### LYTES #### [facility] [address] [place] [address] USAComplete Blood Count Auto Diffon 19-58-1425Draa Corpuscular HGB Conc33.9 g/hZYecadi00.5-35.6The [facility] Physician GroupComment on above:Performed By: #### LYTES #### [facility] [address] [place] [address] USANRBC%0.1 /100{WBC}Normal0-0.5The [facility] Comment on above:Performed By: #### LYTES #### [facility] [address] [place] [address] USAComprehensive Metabolic Panelon 82-26-0800Rztvpna [Mass/Vol]3.5 g/dLNormal3.5-5.7The [facility] Physician [facility] HospitalComment on above: Performed By: #### LYTES #### [facility] [address] [place] [address] USACreatinine Clr Calc Vuuqvhlj830.44NormalThe [facility] Physician [facility] HospitalComment on above:Performed By: #### LYTES #### [place] [address] USAGFR/1.73 sq M.predicted MDRD (S/P/Bld) [Vol rate/Area] mL/min/{1.73_m2}NormalThe [facility] Physician [facility] HospitalComment on above:Performed By: #### LYTES #### [place] [address] USACreatinine [Mass/volume] in Serum or PlasmaOrdered By: Lydia Connelly on 39-74-9198Ypfxzvfvls [Mass/Vol]Creatinine [Mass/volume] in Serum or Plasma0.70-1.30[facility] HospitalCreatinine [Mass/Vol]0.76 mg/dLNormal0.70-1.30[facility] HospitalComment on above:Performed By: #### LYTES #### [place] [address] USAEosinophils Auto (Bld) [#/Vol]Ordered By: Lydia Connelly on 94-25-0622Whjdbwvuddo (Bld) [#/Vol]Automated eosinophil count0.0-0.45[facility] HospitalEosinophils [#/volume] in Blood by Automated countOrdered By: Lydia Connelly on 72-88-5474Qxabewlwwpx (Bld) [#/Vol]0.1 10*3/uLNormal 0.0-0.45[facility] HospitalComment on above:Performed By: #### LYTES #### [place] [address] USAEosinophils/100 WBC Auto (Bld)Ordered By: Lydia Connelly on 08-29-8867Ythhclwpkhr/100 WBC (Bld)Automated eosinophil %.[facility] HospitalEosinophils/100 leukocytes in Blood by Automated countOrdered By: Lydia Connelly on 30-49-8102Zjepbeqgupn/100 WBC (Bld)1.1 %Normal.[facility] HospitalComment on above:Performed By: #### LYTES #### [place] [address] USAErythrocyte distribution width Auto (RBC) [Ratio]Ordered By: Lydia Connelly on 56-47-1331Cnhbylwkbxh distribution width (RBC) [Ratio] Erythrocyte distribution width [Ratio] by Automated count12.0-14.8[facility] Community HospitalErythrocyte distribution width [Ratio] by Automated count Ordered By: Lydia Connelly on 27-59-2089Bhbsxisenzx distribution width (RBC) [Ratio]13.8 %Tcybam37.0-14.8[facility] HospitalComment on above: Performed By: #### LYTES #### [facility] [address] [place] [address] USAErythrocytes [#/volume] in Blood by Automated countOrdered By: Lydia Connelly on 28-99-0980QJD (Bld) [#/Vol]4.79 10*6/uLNormal3.90-5.60 [facility] HospitalComment on above:Performed By: #### ARRONTES #### [place] [address] USAGlobulin Calc (S) [Mass/Vol]Ordered By: Lydia Connelly on 84-59-5435Gkwpilmz (S) [Mass/Vol]Serum globulin measurement by calculation (mass/volume)[facility] HospitalGlucose [Mass/volume] in Serum or PlasmaOrdered By: Lydia Connelly on 12-03-0593Kodjmcc [Mass/Vol]Glucose [Mass/volume] in Serum or SnnywkSlfu00-385WzjruhblhAultman Alliance Community Hospital Comment on above:ADA recommended reference rangeRandom Glucose Reference Range is dependent on time and content of last meal. Glucose of more than 200 mg/dL in a nonstressed, ambulatory subject supports the diagnosisof Diabetes Mellitus. Glucose [Mass/Vol]148 mg/iIHqwm84-931HndopstwnAultman Alliance Community HospitalComment on above:ADA recommended reference rangeRandom Glucose [...] recommended reference rangePerformed By: #### LYTES #### [facility] [address] [place] [id number] USAHematocrit Auto (Bld) [Volume fraction]Ordered By: Lydia Connelly on 94-82-6645Wxtadstksx (Bld) [Volume fraction]Hematocrit [Volume Fraction] of Blood by Automated skdduYjwc44.8-50.0[facility] Hematocrit [Volume Fraction] of Blood by Automated countOrdered By: Lydia Connelly on 45-59-8833Swtysgjwbw (Bld) [Volume fraction]50.5 %High38.8-50.0[facility] HospitalComment on above:Performed By: #### LYTES #### [facility] [address] [place] [id number] USAHemoglobin [Mass/volume] in BloodOrdered By: Lydia Connelly on 11-13-1997Usuhbfcavm (Bld) [Mass/Vol]Hemoglobin [Mass/volume] in BloodHigh 13.0-17.0[facility] HospitalHemoglobin (Bld) [Mass/Vol]17.1 g/dL High13.0-17.0[facility] HospitalComment on above:Performed By: #### LYTES #### [facility] [address] [place] [id number] USALeukocytes [#/volume] corrected for nucleated erythrocytes in Blood by Automated counOrdered By: Lydia Connelly on 41-83-8987FSH corrected for nucl RBC Auto (Bld) [#/Vol]Leukocytes [#/volume] corrected for nucleated erythrocytes in Blood by Automated coun4.1-10.5FDetwiler Memorial Hospital WBC corrected for nucl RBC Auto (Bld) [#/Vol]9.6 10*3/uL4.1-10.5FDetwiler Memorial HospitalLeukocytes [#/volume] in Blood by Automated countOrdered By: Lydia Connelly on 74-80-8641COS (Bld) [#/Vol]9.6 10*3/uLNormal4.1-10.5 [facility] HospitalComment on above:Performed By: #### LYTES #### [facility] [address] [place] [address] USALymphocytes Auto (Bld) [#/Vol]Ordered By: Lydia Connelly on 40-58-7840Ftzzdixhfor (Bld) [#/Vol]Lymphocytes [#/volume] in Blood by Automated count1.00-4.8[facility] HospitalLymphocytes [#/volume] in Blood by Automated countOrdered By: Lydia Connelly on 16-99-8955Ysdqzhiktlu (Bld) [#/Vol] 1.4 10*3/uLNormal1.00-4.8[facility] HospitalComment on above: Performed By: #### LYTES #### [facility] [address] [place] [address] USALymphocytes/100 WBC Auto (Bld)Ordered By: Lydia Connelly on 34-24-6463Kuhihigpycx/100 WBC (Bld)Lymphocytes/100 leukocytes in Blood by Automated count.[facility] HospitalLymphocytes/100 leukocytes in Blood by Automated countOrdered By: Lydia Connelly on 93-03-3255Pdeumqlgmkk/100 WBC (Bld)15.1 %Normal.[facility] HospitalComment on above: Performed By: #### LYTES #### [address] Auto (RBC) [Entitic mass]Ordered By: Lydia Connelly on 96-56-3996TIM (RBC) [Entitic mass]MCH [Entitic mass] by Automated countHigh 27.5-35.2FDetwiler Memorial HospitalMCH [Entitic mass] by Automated count Ordered By: Lydia Connelly on 68-89-7207LDH (RBC) [Entitic mass]35.8 pgHigh 27.5-35.2FDetwiler Memorial HospitalComment on above:Performed By: #### LYTES #### [facility] [address] [place] [address] USAMCHC Auto (RBC) [Mass/Vol]Ordered By: Lydia Connelly on 68-13-9532RKVD (RBC) [Mass/Vol]MCHC [Mass/volume] by Automated count32.5-35.6 [facility], BeachwoodHC (RBC) [Mass/Vol]33.9 g/dL32.5-35.6 [facility] HospitalMCV Auto (RBC) [Entitic vol]Ordered By: Lydia Connelly on 98-88-4076FID (RBC) [Entitic vol]MCV [Entitic volume] by Automated count High83.5-101[facility] Community HospitalMCV [Entitic volume] by Automated countOrdered By: Lydia Connelly on 84-97-4197KZJ (RBC) [Entitic vol]105.5 fLHigh 83.5-101[facility] HospitalComment on above:Performed By: #### LYTES #### [facility] [address] [place] [address] USAMagnesium [Mass/volume] in Serum or PlasmaOrdered By: Lydia Connelly on 94-93-3372Pfrjelrct [Mass/Vol]Magnesium [Mass/volume] in Serum or PlasmaLow1.9-2.7FDetwiler Memorial HospitalMagnesium [Mass/Vol]1.6 mg/dLLow1.9-2.7FDetwiler Memorial HospitalComment on above:Result Comment: PERFORMED BY: [place] [address] PATHOLOGIST COASTAL AND ESTUARY SPECIALIST OSCAR HAY M.D.Performed By: #### LYTES #### [facility] [address] [place] [address] USAMonocytes Auto (Bld) [#/Vol]Ordered By: Lydia Connelly on 53-30-0743Ugmnwjqzb (Bld) [#/Vol]Automated blood monocyte count0.0-0.8[facility] HospitalMonocytes [#/volume] in Blood by Automated countOrdered By: Lydia Connelly on 28-08-4081Kdcurzxky (Bld) [#/Vol]0.7 10*3/uLNormal0.0-0.8 [facility] HospitalComment on above:Performed By: #### ARRONTES #### [facility] [address] [place] [address] USAMonocytes/100 WBC Auto (Bld)Ordered By: Lydia Connelly on 52-81-2512Zlxbvdkad/100 WBC (Bld)Automated monocyte %.[facility] HospitalMonocytes/100 leukocytes in Blood by Automated countOrdered By: Lydia Connelly on 15-73-6517Btonyrxpt/100 WBC (Bld)7.6 %Normal.[facility] HospitalComment on above:Performed By: #### LYTES #### [facility] [address] [place], [place] [id number] USANM kacie perf SPECT rest stron 98-03-5611TU kacie perf SPECT rest [facility] [place] [address] Nuclear Medicine Report Signed Patient: Esme Kaminski MR#: [id number] : 1960 Acct:[id number] Age/Sex: 63 / M ADM Date: 08/11/24 Loc: Room: [address] [place] [address] Type: ADM INOo Attending Dr: Lydia Connelly MD Copies to: Lala Arce MD, [facility] MD Lydia Guajardo MD Ordering Provider: Lala Arce MD, [facility] Date of Service: 08/12/24 [place] kacie [...] Woodruff M.D. 08/13/2024 1:02 PM Dictation Location: [place] [address] Transcribed By: GWEN 08/13/24 1302 Dictated By: Ada Woodruff MD 08/13/24 1258 Signed By: 08/13/24 1302[facility] Physician GroupNeutrophils Auto (Bld) [#/Vol] Ordered By: Lydia Connelly on 30-96-9309Sglljtilyog (Bld) [#/Vol]Neutrophils [#/volume] in Blood by Automated count1.8-7.7FDetwiler Memorial Hospital Neutrophils [#/volume] in Blood by Automated countOrdered By: Lydia Connelly on 38-01-8470Xrywrdlnnph (Bld) [#/Vol]7.2 10*3/uLNormal1.8-7.7FDetwiler Memorial HospitalComment on above:Performed By: #### LYTES #### [place] [id number] USANeutrophils/100 WBC Auto (Bld)Ordered By: Lydia Connelly on 84-01-7484Suzbcyddvvv/100 WBC (Bld)Automated neutrophil %.[facility] HospitalNeutrophils/100 leukocytes in Blood by Automated countOrdered By: Lydia Connelly on 08-03-9920Iipjzdehxxt/100 WBC (Bld)75.4 %Normal.[facility] HospitalComment on above:Performed By: #### LYTES #### [place] [id number] USANo Panel InformationOrdered By: Lydia Connelly on 08-13-2024 Estimated GFR (CKD-EPI)> 60.0 mL/MinAultman Alliance Community HospitalPharmacy Creatinine Clearance (Cnca249.44[facility] Community HospitalNucleated erythrocytes [Presence] in Blood by Automated countOrdered By: Lydia Connelly on 89-59-5628Qqztxeqhv RBC Auto Ql (Bld)Nucleated erythrocytes [Presence] in Blood by Automated count0-0.5FDetwiler Memorial HospitalNucleated RBC Auto Ql (Bld)0.1 /100{WBC}0-0.5FDetwiler Memorial HospitalPlatelet mean volume Auto (Bld) [Entitic vol]Ordered By: Lydia Connelly on 18-88-9749Dievxazs mean volume (Bld) [Entitic vol]Platelet mean volume [Entitic volume] in Blood by Automated count6.6-10.1FDetwiler Memorial HospitalPlatelet mean volume [Entitic volume] in Blood by Automated countOrdered By: Lydia Connelly on 71-17-4976Pobmudou mean volume (Bld) [Entitic vol]9.1 fLNormal6.6-10.1FDetwiler Memorial HospitalComment on above:Performed By: #### LYTES #### [facility] [address] [place] [address] USAPlatelets Auto (Bld) [#/Vol]Ordered By: Lydia Connelly on 12-91-8282Xxxvpekdw (Bld) [#/Vol]Platelets [#/volume] in Blood by Automated -161HrnruoihpAultman Alliance Community HospitalPlatelets [#/volume] in Blood by Automated countOrdered By: Lydia Connelly on 68-76-9174Ybvrteddu (Bld) [#/Vol]160 10*3/oCMilaat493-930Bgcyiie[address] [place], [place] [address]Comment on above:Performed By: #### LYTES #### [facility] [address] [place] [address] USAPotassium [Moles/volume] in Serum or PlasmaOrdered By: Lydia Connelly on 87-86-4201Lkjevebrg [Moles/Vol]Potassium [Moles/volume] in Serum or Plasma3.5-5.1FDetwiler Memorial HospitalComment on above:Hemolysis is present at a level that could interfere with the result.Contact lab if redraw is requiredPotassium [Moles/Vol]3.9 mmol/LNormal3.5-5.1FDetwiler Memorial HospitalComment on above:Hemolysis is present at a level that could interfere with the result.Contact lab if redraw is requiredResult Comment: Hemolysis is present at a level that could interfere with the result. Contact lab if redraw is requiredPerformed By: #### LYTES #### [place] [id number] USAProtein [Mass/volume] in Serum or PlasmaOrdered By: Lydia Connelly on 19-03-1250Dimesee [Mass/Vol]Protein [Mass/volume] in Serum or PlasmaLow6.4-8.9[facility] HospitalProtein [Mass/Vol]6.1 g/dLLow 6.4-8.9[facility] HospitalComment on above:Performed By: #### DIMITRIOS #### [place] [id number] USARBC Auto (Bld) [#/Vol]Ordered By: Lydia Connelly on 36-87-8200FMD (Bld) [#/Vol]Erythrocytes [#/volume] in Blood by Automated count 3.90-5.60City Hospitalerum globulin measurement by calculation (mass/volume)Ordered By: Lydia Connelly on 94-37-9148Pyfxgvcz (S) [Mass/Vol]2.6 g/dLNormalAultman Alliance Community HospitalComment on above: Performed By: #### LYTES #### [facility] [address] [place] [address] USASerum or plasma albumin/globulin mass ratioOrdered By: Lydia Connelly on 78-67-1586Vfkrdic/Globulin [Mass ratio]Serum or plasma albumin/globulin mass ratioAultman Alliance Community HospitalAlbumin/Globulin [Mass ratio]1.3 {ratio}NormalAultman Alliance Community HospitalComment on above: Performed By: #### LYTES #### [facility] [address] [place], [place] [id number] USASerum or plasma anion gap determinationOrdered By: Lydia Connelly on 19-67-6198Xdtfm gap [Moles/Vol]Serum or plasma anion gap determination 6.0-15.0[facility] HospitalAnion gap [Moles/Vol]11.5 mmol/LNormal 6.0-15.0[facility] HospitalComment on above:Performed By: #### LYTES #### [place] [address] USASodium [Moles/volume] in Serum or PlasmaOrdered By: Lydia Connelly on 88-28-0374Pqbcwo [Moles/Vol]Sodium [Moles/volume] in Serum or SjxkenMav993-176MvwisbsnhCity Hospitalodium [Moles/Vol]135 mmol/LLow 136-145A[facility] Alliance Community HospitalComment on above:Performed By: #### LYTES #### [place] [address] USAUrea nitrogen [Mass/volume] in Serum or PlasmaOrdered By: Lydia Connelly on 29-37-7637Aahj nitrogen [Mass/Vol]Urea nitrogen [Mass/volume] in Serum or Plasma10-31[facility] HospitalUrea nitrogen [Mass/Vol]19 mg/dLNormal10-31[facility] HospitalComment on above:Performed By: #### LYTES #### [facility] [address] [place] [address] USAWBC Auto (Bld) [#/Vol]Ordered By: Lydia Connelly on 37-39-6299ORQ (Bld) [#/Vol]Leukocytes [#/volume] in Blood by Automated count 4.1-10.5FDetwiler Memorial HospitalA1C with Estimated Average Gluon 22-99-0579Mwigdol [Mass/Vol]174 mg/dLNoCone Health Wesley Long Hospital Physician GroupComment on above:Result Comment: PERFORMED BY: [place] [address] PATHOLOGIST COASTAL AND ESTUARY SPECIALIST MOHAMED M EL-FAKHARANY M.D.Performed By: #### LIPID, MG, CMP, A1C WT eA, CBC ####[facility] [address] [place] [address] USABlood estimated average glucose determination by estimation from glycated hemoglobin Ordered By: Lydia Connelly on 96-87-8920Hfwquja glucose Estimated from glycated hemoglobin (Bld) [Mass/Vol]Glucose mean value [Mass/volume] in Blood Estimated from glycated hemoglobinAultman Alliance Community HospitalAverage glucose Estimated from glycated hemoglobin (Bld) [Mass/Vol]174 mg/dLAultman Alliance Community HospitalCholesterol [Mass/volume] in Serum or PlasmaOrdered By: Lydia Connelly on 26-09-9534Wkoeunhaqxc [Mass/Vol]Cholesterol [Mass/volume] in Serum or Ouxrmf399-788ErlmrbfqeAultman Alliance Community HospitalComment on above:Chol less than 200 mg/dl low riskChol 201-239 mg/dl borderline riskChol 240 mg/dl and greater high riskCholesterol [Mass/Vol]167 mg/oONjuobm411-342UzrbimayyAultman Alliance Community HospitalComment on above:Chol less than 200 mg/dl low riskChol 201-239 mg/dl borderline riskChol 240 mg/dl and greater high riskResult Comment: Chol less than 200 mg/dl low risk Chol 201-239 mg/dl borderline risk Chol 240 mg/dl and greater high riskPerformed By: #### LIPID, MG, CMP, A1C WTH eA, CBC ####[facility] [address] [place] [address] USACholesterol in HDL [Mass/volume] in Serum or PlasmaOrdered By: Lydia Connelly on 20-13-6827Cgrckpeexvx in HDL [Mass/Vol]Serum or plasma high density lipoprotein (HDL) cholesterol vbwkgmgdmmu48-05Sslvjyffw[address] [place] [address] Comment on above:HDL CHOL ATP-III CLASSIFICATION Cardiovascular RiskHDL > or equal to 60 mg/dL LOWHDL < 40 mg/dL HIGHCholesterol in HDL [Mass/Vol]45 mg/dL Lyjkpr84-89Dxbvtmfuh[address] [place], [place] [address]Comment on above:HDL CHOL ATP-III CLASSIFICATION Cardiovascular RiskHDL > or equal to 60 mg/dL LOWHDL < 40 mg/dL HIGHResult Comment: HDL CHOL ATP-III CLASSIFICATION Cardiovascular Risk HDL > or equal to 60 mg/dL LOW HDL < 40 mg/dL HIGHPerformed By: #### LIPID, MG, CMP, A1C WTH eA, CBC ####[facility] I[address] Cholesterol in LDL Calc [Mass/Vol]Ordered By: Lydia Connelly on 08-12-2024 Cholesterol in LDL [Mass/Vol]Cholesterol in LDL [Mass/volume] in Serum or Plasma by calculationAultman Alliance Community HospitalComment on above:LDL ATP III CLASSIFICATIONLDL less than 100 mg/dL OptimalLDL 100-129 mg/dL Near or above zuffibxTSM962-578 mg/dL Borderline highLDL 160-189 mg/dL HighLDL greater than 189 mg/dL Very highCholesterol in LDL [Mass/Vol]86 mg/dL0Ault[facility] Alliance Community HospitalComment on above:LDL ATP III CLASSIFICATIONLDL less than 100 mg/dL OptimalLDL 100-129 mg/dL Near or above tnmyfssZWW425-758 mg/dL Borderline highLDL 160-189 mg/dL HighLDL greater than 189 mg/dL Very highCholesterol in VLDL Calc [Mass/Vol]Ordered By: Lydia Connelly on 40-59-3311Jmknwbnhkwf in VLDL [Mass/Vol]Cholesterol in VLDL [Mass/volume] in Serum or Plasma by calculation [facility] Community HospitalCholesterol in VLDL [Mass/Vol]35 mg/dLAultman Alliance Community HospitalComplete Blood Count Auto Diffon 17-74-1980Plypsmdet (Bld) [#/Vol]0.1 10*3/uLNormal0.0-0.2The [facility] Physician GroupComment on above:Result Comment: PERFORMED BY: [facility] [address] [facility] [place] [address] PATHOLOGIST COASTAL AND ESTUARY SPECIALIST OSCAR HAY M.D.Performed By: #### LIPID, MG, CMP, A1C WTH eA, CBC ####[facility] Basophils/100 WBC (Bld)0.8 %Normal.The [facility] Physician GroupComment on above:Performed By: #### LIPID, MG, CMP, A1C WTH eA, CBC ####[place] [address] USAEosinophils (Bld) [#/Vol]0.1 10*3/uLNormal0.0-0.45The [facility] Physician GroupComment on above:Performed By: #### LIPID, MG, CMP, A1C WTH eA, CBC ####[place] [address] USAEosinophils/100 WBC (Bld)0.7 %Normal.The [facility] Physician GroupComment on above:Performed By: #### LIPID, MG, CMP, A1C WTH eA, CBC ####[place] [address] USAErythrocyte distribution width (RBC) [Ratio]13.7 %Axptws02.0-14.8The [facility] Physician GroupComment on above:Performed By: #### LIPID, MG, CMP, A1C WTH eA, CBC ####[place] [address] USAHematocrit (Bld) [Volume fraction]50.3 %High38.8-50.0The [facility] Physician GroupComment on above:Performed By: #### LIPID, MG, CMP, A1C WTH eA, CBC ####[place] [address] [place] Hemoglobin (Bld) [Mass/Vol]17.3 g/aOBstn06.0-17.0The [facility] Comment on above:Performed By: #### LIPID, MG, CMP, A1C WTH eA, CBC ####[place] [address] [place] Lymphocytes (Bld) [#/Vol]1.5 10*3/uLNormal1.00-4.8The [facility] Comment on above:Performed By: #### LIPID, MG, CMP, A1C WTH eA, CBC ####[place] [address] [place] Lymphocytes/100 WBC (Bld)14.1 %Normal.The [facility] Physician GroupComment on above:Performed By: #### LIPID, MG, CMP, A1C WTH eA, CBC ####[address] (RBC) [Entitic mass]35.7 jnJncd01.5-35.2The [facility] Physician GroupComment on above:Performed By: #### LIPID, MG, CMP, A1C WTH eA, CBC ####[address] (RBC) [Entitic vol]103.6 bGBgak30.5-101The [facility] Physician GroupComment on above:Performed By: #### LIPID, MG, CMP, A1C WTH eA, CBC ####[place] [address] USAMean Corpuscular HGB Conc34.5 g/bZKaudag10.5-35.6The [facility] Physician GroupComment on above:Performed By: #### LIPID, MG, CMP, A1C WTH eA, CBC ####[place] [address] [place] Monocytes (Bld) [#/Vol]0.5 10*3/uLNormal0.0-0.8The [facility] Comment on above:Performed By: #### LIPID, MG, CMP, A1C WTH eA, CBC ####[place] [address] [place] Monocytes/100 WBC (Bld)5.0 %Normal.The [facility] Physician GroupComment on above:Performed By: #### LIPID, MG, CMP, A1C WTH eA, CBC ####[place] [address] USANeutrophils (Bld) [#/Vol]8.2 10*3/uLHigh1.8-7.7The [facility] Physician GroupComment on above:Performed By: #### LIPID, MG, CMP, A1C WTH eA, CBC ####[place] [address] USANeutrophils/100 WBC (Bld)79.4 %Normal.The [facility] Physician GroupComment on above:Performed By: #### LIPID, MG, CMP, A1C WTH eA, CBC ####[place] [address] USANRBC%0.1 /100{WBC}Normal0-0.5The [facility] Physician GroupComment on above:Performed By: #### LIPID, MG, CMP, A1C WTH eA, CBC ####[place] [address] USAPlatelet mean volume (Bld) [Entitic vol]9.1 fLNormal6.6-10.1The [facility] Physician GroupComment on above: Performed By: #### LIPID, MG, CMP, A1C WTH eA, CBC ####[place] [address] USAPlatelets (Bld) [#/Vol]169 10*3/hMAehoqc618-359Ize [facility] Physician GroupComment on above:Performed By: #### LIPID, MG, CMP, A1C WTH eA, CBC ####[place] [address] USARBC (Bld) [#/Vol]4.86 10*6/uLNormal3.90-5.60 The [facility] Physician GroupComment on above:Performed By: #### LIPID, MG, CMP, A1C WTH eA, CBC ####[place] [address] USAWBC (Bld) [#/Vol]10.3 10*3/uLNormal4.1-10.5The [facility] Physician GroupComment on above:Performed By: #### LIPID, MG, CMP, A1C WTH eA, CBC ####[address] Comprehensive Metabolic Panelon 58-27-9863Pvsuajf [Mass/Vol]3.9 g/dLNormal 3.5-5.7The [facility] Physician GroupComment on above:Performed By: #### LIPID, MG, CMP, A1C WTH eA, CBC ####[facility] [place] [address] USAAlbumin/Globulin [Mass ratio]1.3 {ratio}NormalThe [facility] Physician GroupComment on above:Performed By: #### LIPID, MG, CMP, A1C WTH eA, CBC ####[place] [address] [place] [address] USAALP [Catalytic activity/Vol]84 U/MXvbarl42-819Ugt [facility] Physician GroupComment on above:Performed By: #### LIPID, MG, CMP, A1C WTH eA, CBC ####[place] [address] [place] [address] USAALT [Catalytic activity/Vol]112 U/LHigh7-52The [facility] Physician GroupComment on above:Performed By: #### LIPID, MG, CMP, A1C WTH eA, CBC ####[place] [address] [place] [address] USAAnion gap [Moles/Vol]12.1 mmol/LNormal6.0-15.0The [facility] Physician GroupComment on above:Performed By: #### LIPID, MG, CMP, A1C WTH eA, CBC ####[place] [address] [place] [address] USAAST [Catalytic activity/Vol]22 U/LWaaroy03-34 The [facility] Physician GroupComment on above:Performed By: #### LIPID, MG, CMP, A1C WTH eA, CBC ####[place] [address] [place] [address] USABilirubin [Mass/Vol]1.6 mg/dLHigh0.3-1.0The [facility] Comment on above:Result Comment: Samples from patients who have taken Naproxen have shown spurious elevation in Total Bilirubin levels. A metabolite of Naproxen, O-desmethylnaproxen, has been shown to interfere with the Jayro-eHnrik method for measuring Total Bilirubin.Performed By: #### LIPID, MG, CMP, A1C WTH eA, CBC ####[place] [address] [place] [address] USACalcium [Mass/Vol] 9.6 mg/dLNormal8.6-10.3The [facility] Physician GroupComment on above:Performed By: #### LIPID, MG, CMP, A1C WTH eA, CBC ####[place] [address] USAChloride [Moles/Vol]99 mmol/EBqcmhr07-909Etw [facility] Physician GroupComment on above:Performed By: #### LIPID, MG, CMP, A1C WTH eA, CBC ####[place] [address] USACO2 [Moles/Vol]27.7 mmol/LJhmtcy53.0-31.0The [facility] Comment on above:Performed By: #### LIPID, MG, CMP, A1C WTH eA, CBC ####[place] [address] [place] Creatinine [Mass/Vol]0.80 mg/dLNormal0.70-1.30The [facility] Comment on above:Performed By: #### LIPID, MG, CMP, A1C WTH eA, CBC ####[place] [address] [place] Creatinine Clr Calc Uqhswiry27.08NoCone Health Wesley Long Hospital Physician GroupComment on above:Performed By: #### LIPID, MG, CMP, A1C WTH eA, CBC ####[place] [address] USAGFR/1.73 sq M.predicted MDRD (S/P/Bld) [Vol rate/Area]mL/min/{1.73_m2}NormalThe [facility] Comment on above:Performed By: #### LIPID, MG, CMP, A1C WTH eA, CBC ####[address] [address] [place] Globulin (S) [Mass/Vol]2.9 g/dLNoCone Health Wesley Long Hospital Physician GroupComment on above:Performed By: #### LIPID, MG, CMP, A1C WTH eA, CBC ####[place] [id number] USAGlucose [Mass/Vol]153 mg/dL Mahc85-927Gkk [facility] Physician GroupComment on above:Result Comment: Random Glucose Reference Range is dependent on time and content of last meal. Glucose of more than 200 mg/dL in a nonstressed, ambulatory subject supports the diagnosis of Diabetes Mellitus. ADA recommended reference rangePerformed By: #### LIPID, MG, CMP, A1C WTH eA, CBC ####[address] Potassium [Moles/Vol]3.8 mmol/LNormal3.5-5.1The [facility] Physician GroupComment on above:Performed By: #### LIPID, MG, CMP, A1C WTH eA, CBC ####[place] [address] USAProtein [Mass/Vol]6.8 g/dLNormal6.4-8.9The [facility] Physician GroupComment on above:Performed By: #### LIPID, MG, CMP, A1C WTH eA, CBC ####[place] [address] USASodium [Moles/Vol]135 mmol/HWjk796-009Xbb [facility] Physician [facility] HospitalComment on above:Performed By: #### LIPID, MG, CMP, A1C WTH eA, CBC ####[place] [address] USAUrea nitrogen [Mass/Vol]13 mg/dLNormal7-25The [facility] Comment on above:Performed By: #### LIPID, MG, CMP, A1C WTH eA, CBC ####[address] Hemoglobin A1c/Hemoglobin.total in BloodOrdered By: Lydia Connelly on 08-12-2024 HbA1c (Bld) [Mass fraction]Hemoglobin A1c percentageHigh4.3-5.6FDetwiler Memorial HospitalComment on above:Increased risk for diabetes: 5.7 - 6.4diabetes: >6.4glycemic control for adults with diabetes: <7.0HbA1c (Bld) [Mass fraction]7.7 %High4.3-5.6FDetwiler Memorial HospitalComment on above:Increased risk for diabetes: 5.7 - 6.4diabetes: >6.4glycemic control for adults with diabetes: <7.0Result Comment: Increased risk for diabetes: 5.7 - 6.4 diabetes: >6.4 glycemic control for adults with diabetes: <7.0Performed By: #### LIPID, MG, CMP, A1C WTH eA, CBC ####[place] [id number] USALipid Panelon 28-23-7461XMN Cholesterol,Ypxyyhwefs28 mg/dLNormal0-100[facility] Physician GroupComment on above:Result Comment: LDL ATP III CLASSIFICATION LDL less than 100 mg/dL Optimal LDL 100-129 mg/dL Near or above optimal LDL 130-159 mg/dL Borderline high LDL 160-189 mg/dL High LDL greater than 189 mg/dL Very highPerformed By: #### LIPID, MG, CMP, A1C WTH eA, CBC ####[place] [address] USATriglyceride w/Oeagty706 mg/dLHigh0-149The [facility] Physician GroupComment on above:Result Comment: TRIG ATP III CLASSIFICATION TRIG less than 150 mg/dL Normal TRIG 150-199 mg/dL Borderline high TRIG 200-500 mg/dL High TRIG greater than 500 mg/dL Very high Standard traceable to the Center for Disease Conrtrol and Prevention (CDC) test method.Performed By: #### LIPID, MG, CMP, A1C WTH eA, CBC ####[place] [id number] USAVLDL HAPIQQGBJQS14 mg/dLNormalThe [facility] Physician GroupComment on above:Performed By: #### LIPID, MG, CMP, A1C WTH eA, CBC ####[place] [id number] USAMagnesiumon 96-50-3280Pfotfzryn [Mass/Vol]1.5 mg/dLLow1.9-2.7ThNorth Canyon Medical Center Physician GroupComment on above:Performed By: #### LIPID, MG, CMP, A1C WTH eA, CBC ####[place] [id number] USASerum or plasma total cholesterol/high density lipoprotein (HDL) cholesterol mass ratOrdered By: Lydia Connelly on 08-12-2024 Cholesterol.total/Cholesterol in HDL [Mass ratio]Serum or plasma total cholesterol/high density lipoprotein (HDL) cholesterol mass rat<5.0[facility] HospitalCholesterol.total/Cholesterol in HDL [Mass ratio]3.7 {ratio}Normal<5.0[facility] HospitalComment on above:Result Comment: PERFORMED BY: [facility] [address] [place] [id number] PATHOLOGIST COASTAL AND ESTUARY SPECIALIST OSCAR HAY M.D.Performed By: #### LIPID, MG, CMP, A1C WTH eA, CBC ####[facility] [place] [id number] [facility] Triglyceride [Mass/volume] in Serum or PlasmaOrdered By: Lydia Connelly on 76-22-3086Yzculxnkvzcy [Mass/Vol]Triglyceride [Mass/volume] in Serum or Plasma High0-149[facility] HospitalComment on above:TRIG ATP III CLASSIFICATIONTRIG less than 150 mg/dL NormalTRIG 150-199 mg/dL Borderline highTRIG 200-500 mg/dL High TRIG greater than 500 mg/dL Very highStandard traceable to the Center for Disease Conrtrol and Prevention (CDC) test method. Triglyceride [Mass/Vol]179 mg/dLBeckley Appalachian Regional Hospital[address] Comment on above:TRIG ATP III CLASSIFICATIONTRIG less than 150 mg/dL NormalTRIG 150-199 mg/dL Borderline highTRIG 200-500 mg/dL High TRIG greater than 500 mg/dL Very highStandard traceable to the Center for Disease Conrtrol and Prevention (CDC) test method.Troponin I High Sensitivityon 28-14-5271Xscrmbup I High Tylpmyfdqbo12Bbjhzv4-36Bpk [facility] Physician GroupComment on above:Result Comment: The Troponin units of report have been changed to meet the Chest Pain Accreditation requirement, element EC5.M1l2. Troponin units are changed from pg/ml to ng/L. Also, the decimal is removed and results are in whole numbers. PERFORMED BY: [facility] [address] [place] [address] PATHOLOGIST COASTAL AND ESTUARY SPECIALIST OSCAR HAY M.D.Performed By: #### HS TROP ####[facility] [address] [place] [address] USATroponin I.cardiac [Mass/volume] in Serum or Plasma by Detection limit <= 0.01 ng/Ordered By: Lydia Connelly on 65-67-7118Otxdoshx I.cardiac DL <= 0.01 ng/mL [Mass/Vol]Troponin I.cardiac [Mass/volume] in Serum or Plasma by Detection limit <= 0.01 ng/0-20 [facility] HospitalComment on above:The Troponin units of report have been changed to meet the Chest Pain Accreditation requirement, element EC5.M1l2. Troponin units are changed from pg/ml to ng/L. Also, the decimal is removed and results are in whole numbers.Troponin I.cardiac [Mass/volume] in Serum or Plasma by Detection limit <= 0.01 ng/mLOrdered By: Lydia Connelly on 40-97-6759Ibclqtoy I.cardiac DL <= 0.01 ng/mL [Mass/Vol]17 ng/L0-20[facility] HospitalComment on above:The Troponin units of report have been changed to meet the Chest Pain Accreditation requirement, element EC5.M1l2. Troponin units are changed from pg/ml to ng/L. Also, the decimal is removed and results are in whole numbers.US venous duplex LE BIon 56-33-8717YA venous duplex LE [facility] [address] [place] [address] [place] [id number] Ultrasound Report Signed Patient: Esme Kaminski MR#: [id number] : 1960 Acct:[id number] Age/Sex: 63 / M ADM Date: 08/11/24 Loc: Room: 4R6718-2 Type: ADM INOo Attending Dr: Lydia Connelly [...] Hannah M.D. 08/12/2024 3:12 PM Dictation Location: [place] [address] Tech: Serena Carol Transcribed By: GWEN 08/12/241511 Dictated By: Matt Hannah MD 08/12/241511 Signed By: 08/12/24 151NoSumma Health Wadsworth - Rittman Medical CenterBNP ser/plasOrdered By: Winnie Farris on 57-35-2348Faececoxhvn peptide B (Bld) [Mass/Vol]514.0 pg/mLHigh5-100 [facility] HospitalComment on above:Result Comment: PERFORMED BY: [facility] [address] [place] [address] [place] [id number] PATHOLOGIST COASTAL AND ESTUARY SPECIALIST OSCAR HAY M.D.Performed By: #### CK, BNP, HS TROP, PT, CBC, BMP ####[place] [address] [place] [address] USABasic Metabolic Panelon 49-07-2308Xynuw gap [Moles/Vol]11.8 mmol/LNormal6.0-15.0The [facility] Physician [facility] HospitalComment on above:Performed By: #### CK, BNP, HS TROP, PT, CBC, BMP ####[facility] [address] [place] [address] USACalcium [Mass/Vol]9.1 mg/dLNormal8.6-10.3The [facility] Comment on above:Performed By: #### CK, BNP, HS TROP, PT, CBC, BMP ####[facility] [place] [address] USAChloride [Moles/Vol] 100 mmol/YLtpkuj89-459Eeo [facility] Physician [facility] HospitalComment on above:Performed By: #### CK, BNP, HS TROP, PT, CBC, BMP ####[place] [address] USACO2 [Moles/Vol]26.2 mmol/HMdqevq81.0-31.0The [facility] Physician GroupComment on above:Performed By: #### CK, BNP, HS TROP, PT, CBC, BMP ####[place] [id number] USACreatinine [Mass/Vol]0.74 mg/dLNormal0.70-1.30The [facility] Physician [facility] HospitalComment on above:Performed By: #### CK, BNP, HS TROP, PT, CBC, BMP ####[place] [address] [place] Creatinine Clr Calc Sclgrfkm318.04NormalThe [facility] Physician [facility] HospitalComment on above:Result Comment: PERFORMED BY: [place] [address] PATHOLOGIST COASTAL AND ESTUARY SPECIALIST OSCAR HAY M.D.Performed By: #### CK, BNP, HS TROP, PT, CBC, BMP ####[place] [address] [place] GFR/1.73 sq M.predicted MDRD (S/P/Bld) [Vol rate/Area]mL/min/{1.73_m2}NormalThe [facility] Physician [facility] HospitalComment on above:Performed By: #### CK, BNP, HS TROP, PT, CBC, BMP ####[place] [id number] USAGlucose [Mass/Vol]164 mg/tGRznm51-088Ybx [facility] Physician [facility] Comment on above:Result Comment: Random Glucose Reference Range is dependent on time and content of last meal. Glucose of more than 200 mg/dL in a nonstressed, ambulatory subject supports the diagnosis of Diabetes Mellitus. ADA recommended reference rangePerformed By: #### CK, BNP, HS TROP, PT, CBC, BMP ####[address] [place] [address] [place] Potassium [Moles/Vol]4.0 mmol/LNormal3.5-5.1The [facility] Physician GroupComment on above:Result Comment: Hemolysis is present at a level that could interfere with the result. Contact lab if redraw is requiredPerformed By: #### CK, BNP, HS TROP, PT, CBC, BMP ####[place] [address] Sodium [Moles/Vol]134 mmol/DTrz462-693Tjy [facility] Physician GroupComment on above:Performed By: #### CK, BNP, HS TROP, PT, CBC, BMP ####[place] [address] StreetUrea nitrogen [Mass/Vol]12 mg/dLNormal7-25The [facility] Physician GroupComment on above:Performed By: #### CK, BNP, HS TROP, PT, CBC, BMP ####[address]Basophils Auto (Bld) [#/Vol]Ordered By: Winnie Farris on 98-48-1718Dunblezav (Bld) [#/Vol]Automated basophil count0.0-0.2FDetwiler Memorial HospitalBasophils/100 WBC Auto (Bld)Ordered By: Winnie Farris on 57-73-7014Ptpnrppig/100 WBC (Bld)Automated basophil %.[facility] HospitalCalcium [Mass/volume] in Serum or PlasmaOrdered By: Winnie Farris on 38-56-5040Osftyrm [Mass/Vol]Calcium [Mass/volume] in Serum or Plasma8.6-10.3 [facility] HospitalCarbon dioxide, total [Moles/volume] in Serum or PlasmaOrdered By: Winnie Farris on 26-15-7415WC9 [Moles/Vol]Carbon dioxide, total [Moles/volume] in Serum or Pxlrqj06.0-31.0[facility] HospitalChloride [Moles/volume] in Serum or PlasmaOrdered By: Winnie Farris on 25-65-2002Mdytopfp [Moles/Vol]Chloride [Moles/volume] in Serum or Zamukg59-290 [facility] HospitalComplete Blood Count Auto Diffon 08-11-2024 Basophils (Bld) [#/Vol]0.0 10*3/uLNormal0.0-0.2The [facility] Comment on above:Result Comment: PERFORMED BY: [address] [place] [address] PATHOLOGIST COASTAL AND ESTUARY SPECIALIST OSCAR HAY M.D.Performed By: #### CK, BNP, HS TROP, PT, CBC, BMP ####[place] [address] [place] Basophils/100 WBC (Bld)0.1 %Normal.The [facility] Physician GroupComment on above:Performed By: #### CK, BNP, HS TROP, PT, CBC, BMP ####[place] [address] USAEosinophils (Bld) [#/Vol]0.0 10*3/uLNormal0.0-0.45The [facility] Physician [facility] HospitalComment on above:Performed By: #### CK, BNP, HS TROP, PT, CBC, BMP ####[place] [address] USAEosinophils/100 WBC (Bld)0.3 %Normal.The [facility] Physician GroupComment on above:Performed By: #### CK, BNP, HS TROP, PT, CBC, BMP ####[place] [address] USAErythrocyte distribution width (RBC) [Ratio]13.8 %Ykxgxs61.0-14.8The [facility] Physician GroupComment on above:Performed By: #### CK, BNP, HS TROP, PT, CBC, BMP ####[place] [address] USAHematocrit (Bld) [Volume fraction]45.5 %Vpsrsn51.8-50.0The [facility] Physician GroupComment on above:Performed By: #### CK, BNP, HS TROP, PT, CBC, BMP ####[place] [address] [place] Hemoglobin (Bld) [Mass/Vol]15.5 g/sOLexgev38.0-17.0[facility] Comment on above:Performed By: #### CK, BNP, HS TROP, PT, CBC, BMP ####[place] [address] USALymphocytes (Bld) [#/Vol]0.9 10*3/uLLow1.00-4.8The [facility] Physician GroupComment on above: Performed By: #### CK, BNP, HS TROP, PT, CBC, BMP ####[place] [address] USALymphocytes/100 WBC (Bld)6.3 %Normal. The [facility] Physician GroupComment on above:Performed By: #### CK, BNP, HS TROP, PT, CBC, BMP ####[place] [id number] [facility] (RBC) [Entitic mass]35.4 ydKiss81.5-35.2The [facility] Physician GroupComment on above:Performed By: #### CK, BNP, HS TROP, PT, CBC, BMP ####[address]MCV (RBC) [Entitic vol]104.0 xJZffc29.5-101The [facility] Physician GroupComment on above:Performed By: #### CK, BNP, HS TROP, PT, CBC, BMP ####[place] [id number] USAMean Corpuscular HGB Conc34.1 g/hEHtppkm33.5-35.6The [facility] Physician GroupComment on above:Performed By: #### CK, BNP, HS TROP, PT, CBC, BMP ####[place] [address] USAMonocytes (Bld) [#/Vol]0.8 10*3/uLNormal0.0-0.8[facility] Physician GroupComment on above:Performed By: #### CK, BNP, HS TROP, PT, CBC, BMP ####[place] [address] USAMonocytes/100 WBC (Bld)19.81 %Normal0.00-20.00The [facility] Physician GroupComment on above:Performed By: #### CK, BNP, HS TROP, PT, CBC, BMP ####[place] [address] [place] Monocytes/100 WBC (Bld)5.5 %Normal.The [facility] Physician GroupComment on above:Performed By: #### CK, BNP, HS TROP, PT, CBC, BMP ####[place] [address] USANeutrophils (Bld) [#/Vol]12.0 10*3/uLHigh1.8-7.7The [facility] Physician GroupComment on above:Performed By: #### CK, BNP, HS TROP, PT, CBC, BMP ####[place] [address] USANeutrophils/100 WBC (Bld)87.8 %Normal.The [facility] Physician GroupComment on above:Performed By: #### CK, BNP, HS TROP, PT, CBC, BMP ####[place] [address] [place] NRBC%0.1 /100{WBC}Normal0-0.5The [facility] Physician GroupComment on above: Performed By: #### CK, BNP, HS TROP, PT, CBC, BMP ####[place] [address] USAPlatelet mean volume (Bld) [Entitic vol]8.9 fLNormal6.6-10.1The [facility] Physician GroupComment on above:Performed By: #### CK, BNP, HS TROP, PT, CBC, BMP ####[place] [address] USAPlatelets (Bld) [#/Vol]146 10*3/eVPyb024-651 [facility] Physician GroupComment on above:Performed By: #### CK, BNP, HS TROP, PT, CBC, BMP ####[place] [address] [place] [address] USARBC (Bld) [#/Vol]4.38 10*6/uLNormal3.90-5.60The [facility] Physician GroupComment on above:Performed By: #### CK, BNP, HS TROP, PT, CBC, BMP ####[place] [id number] USAWBC (Bld) [#/Vol]13.6 10*3/uLHigh4.1-10.5The [facility] Physician GroupComment on above:Performed By: #### CK, BNP, HS TROP, PT, CBC, BMP ####[place] [address] [place] [address] USACreatine kinase [Enzymatic activity/volume] in Serum or PlasmaOrdered By: Winnie Farris on 46-57-2733YL [Catalytic activity/Vol]Creatine kinase [Enzymatic activity/volume] in Serum or ZxjbzgXki53-586Klzdfoxnr07 Gardner StreetCK [Catalytic activity/Vol]15 U/ZZra39-699Azbkwctaf07 Gardner StreetComment on above:Performed By: #### CK, BNP, HS TROP, PT, CBC, BMP ####[place] [address] USACreatinine [Mass/volume] in Serum or PlasmaOrdered By: Winnie Farris on 48-38-5618Uhhuzafvxu [Mass/Vol]Creatinine [Mass/volume] in Serum or Plasma0.70-1.30[facility] HospitalECG 12 lead ECGon 46-15-9288SMK 12 lead ECGPROTESTANT DEACONESS [facility] [address] [place] [address] Electrocardiograph Report Signed Patient: Esme Kaminski MR#: [id number] : 1960 Acct:[id number] Age/Sex: 63 / M ADM Date: 08/11/24 Loc: Room: [address] [place] [address] Type: ADM INOo Attending Dr: Lydia Connelly [...] By: MUS Signed By Winnie Farris DO [address] [place] [address] Physician GroupECG 12 lead ECGPROTESTANT DEACONESS [facility]OS[facility] [address] [place] [address] [place] [address] Electrocardiograph Report Signed Patient: Esme Kaminski MR#: [id number] : 1960 Acct:[id number] Age/Sex: 63 / M ADM Date: 08/11/24 Loc: Room: [address] [place] [address] Type: ADM INOo Attending Dr: Lydia Connelly [...] By: MUS Signed By Winnie Farris DO [address] [place] [address] Physician GroupECH echo transthoracicon 22-15-4551VYR echo transthoracicPROTESTANT DEACONESS HOSPITAL [address] [place] [address] [place] [address] Echocardiogram Signed Patient: Esme Kaminski MR#: [id number] : 1960 Acct:[id number] Age/Sex: 63 / M ADM Date: 08/11/24 Loc: Room: [address] [place] [address] Type: ADM INOo Attending Dr: Lydia Connelly [...] Signed By: Will Koch MD 08/11/24 1754[facility] Physician GroupEosinophils Auto (Bld) [#/Vol]Ordered By: Winnie Farris on 48-12-4330Tbpfysihmqa (Bld) [#/Vol]Automated eosinophil count0.0-0.45[facility] HospitalEosinophils/100 WBC Auto (Bld)Ordered By: Winnie Farris on 56-93-5057Ixyvrkcpqxg/100 WBC (Bld)Automated eosinophil %.[facility] HospitalErythrocyte distribution width Auto (RBC) [Ratio]Ordered By: Winnie Farris on 57-82-7361Ryhkkjjdqgp distribution width (RBC) [Ratio] Erythrocyte distribution width [Ratio] by Automated count12.0-14.8[facility] HospitalGlucose [Mass/volume] in Serum or PlasmaOrdered By: Winnie Farris on 19-06-9372Vssrfkn [Mass/Vol]Glucose [Mass/volume] in Serum or NhlrnhEerq42-672KrcjqzdexAultman Alliance Community HospitalComment on above:ADA recommended reference rangeRandom Glucose Reference Range is dependent on time and content of last meal. Glucose of more than 200 mg/dL in a nonstressed, ambulatory subject supports the diagnosisof Diabetes Mellitus.Hematocrit Auto (Bld) [Volume fraction]Ordered By: Winnie Farris on 01-11-8523Htmsvstlyr (Bld) [Volume fraction]Hematocrit [Volume Fraction] of Blood by Automated count 38.8-50.0[facility] HospitalHemoglobin [Mass/volume] in Blood Ordered By: Winnie Farris on 89-20-0859Wwrksipxbx (Bld) [Mass/Vol]Hemoglobin [Mass/volume] in Blood13.0-17.0[facility] HospitalINR in Platelet poor plasma by Coagulation assayOrdered By: Winnie Farris on 68-09-6324SVZ Coag (PPP) [Relative time]INR in Platelet poor plasma by Coagulation assayAultman Alliance Community HospitalComment on above:INR Therapeutic Range A) Pre- [...] 3 - 4.5INR Coag (PPP) [Relative time]1.1 {INR}NormalAultman Alliance Community HospitalComment on above:INR Therapeutic Range A) Pre- [...] heart valves: 3 - 4.5 PERFORMED BY: [facility] [address] [place] [address] PATHOLOGIST COASTAL AND ESTUARY SPECIALIST OSCAR HAY M.D.Performed By: #### CK, BNP, HS TROP, PT, CBC, BMP ####[facility] [address] [place] [address] [facility] Leukocytes [#/volume] corrected for nucleated erythrocytes in Blood by Automated counOrdered By: Winnie Farris on 03-37-0970ZBL corrected for nucl RBC Auto (Bld) [#/Vol]Leukocytes [#/volume] corrected for nucleated erythrocytes in Blood by Automated counHigh4.1-10.5FDetwiler Memorial HospitalLymphocytes Auto (Bld) [#/Vol]Ordered By: Winnie Farris on 81-02-6529Poagbxltauz (Bld) [#/Vol] Lymphocytes [#/volume] in Blood by Automated countLow1.00-4.8[facility] HospitalLymphocytes/100 WBC Auto (Bld)Ordered By: Winnie Farris on 87-82-9952Hjkzzudktue/100 WBC (Bld)Lymphocytes/100 leukocytes in Blood by Automated count.[facility], BeachwoodH Auto (RBC) [Entitic mass] Ordered By: Winnie Farris on 04-39-5053EUJ (RBC) [Entitic mass]MCH [Entitic mass] by Automated hpdnwYoyx08.5-35.2FOhioHealth Van Wert HospitalHC Auto (RBC) [Mass/Vol]Ordered By: Winnie Farris on 85-86-0288UBCH (RBC) [Mass/Vol]MCHC [Mass/volume] by Automated count32.5-35.6FOhioHealth Van Wert HospitalV Auto (RBC) [Entitic vol]Ordered By: Winnie Farris on 31-40-8395AKC (RBC) [Entitic vol]MCV [Entitic volume] by Automated kmwleGekz27.5-101[facility] HospitalMonocyte distribution width [Entitic volume] in Blood by Automated Ordered By: Winnie Farris on 63-68-1677Bpkqjveb distribution width Auto (Bld) [Entitic vol]Monocyte distribution width [Entitic volume] in Blood by Automated 0.00-20.00[facility] HospitalMonocyte distribution width Auto (Bld) [Entitic vol]19.81 %0.00-20.00[facility] HospitalMonocytes Auto (Bld) [#/Vol]Ordered By: Winnie Farris on 34-93-0204Fpjkekdhv (Bld) [#/Vol] Automated blood monocyte count0.0-0.8[facility] Monocytes/100 WBC Auto (Bld)Ordered By: Winnie Farris on 81-04-5314Qwftpggfp/100 WBC (Bld)Automated monocyte %.[facility] HospitalNatriuretic peptide B [Mass/Vol]Ordered By: Winnie Farris on 10-19-5568Dbrmwvlbafa peptide B (Bld) [Mass/Vol]BNP ser/plasHigh5-100[facility] Neutrophils Auto (Bld) [#/Vol]Ordered By: Winnie Farris on 16-57-6169Cgxczpeinir (Bld) [#/Vol]Neutrophils [#/volume] in Blood by Automated countHigh1.8-7.7 [facility] HospitalNeutrophils/100 WBC Auto (Bld)Ordered By: Winnie Farris on 51-76-3304Afrrtveokky/100 WBC (Bld)Automated neutrophil %. [facility] HospitalNo Panel InformationOrdered By: Winnie Farris on 72-91-8818Xlmjhjywl GFR (CKD-EPI)> 60.0 mL/MinAultman Alliance Community Hospital Pharmacy Creatinine Clearance (Zccs607.04[facility] Nucleated erythrocytes [Presence] in Blood by Automated countOrdered By: Winnie Farris on 36-09-7204Hkmfjhoix RBC Auto Ql (Bld)Nucleated erythrocytes [Presence] in Blood by Automated count0-0.5FDetwiler Memorial HospitalPlatelet mean volume Auto (Bld) [Entitic vol]Ordered By: Winnie Farris on 22-97-1656Nryvtxpt mean volume (Bld) [Entitic vol]Platelet mean volume [Entitic volume] in Blood by Automated count6.6-10.1FDetwiler Memorial HospitalPlatelets Auto (Bld) [#/Vol]Ordered By: Winnie Farris on 21-49-2691Lsmxwixeb (Bld) [#/Vol]Platelets [#/volume] in Blood by Automated mrebyHwb940-408YtyrqavfrAultman Alliance Community HospitalPotassium [Moles/volume] in Serum or PlasmaOrdered By: Winnie Farris on 21-02-5651Rpccqofke [Moles/Vol]Potassium [Moles/volume] in Serum or Plasma 3.5-5.1FDetwiler Memorial HospitalComment on above:Hemolysis is present at a level that could interfere with the result.Contact lab if redraw is required Prothrombin time (PT)Ordered By: Winnie Farris on 24-07-3662TM Coag (PPP) [Time] Prothrombin time (PT)9.0-12.9[facility] HospitalComment on above:A hematocrit value greater than 55% may lead to inaccurate results in coagulation testing. Patientshaving hematocrit values >55% require a special collection tube for coagulation studies. Please contact the laboratory at [phone] for redraw instructions.PT Coag (PPP) [Time]12.5 sNormal9.0-12.9[facility] HospitalComment on above:A hematocrit value greater than 55% may lead to inaccurate results in coagulation testing. Patientshaving hematocrit values >55% require a special collection tube for coagulation studies. Please contact the laboratory at [phone] for redraw instructions.Result Comment: A hematocrit value greater than 55% may lead to inaccurate results in coagulation testing. Patients having hematocrit values >55% require a special collection tube for coagulation studies. Please contact the laboratory at [phone] for redraw instructions.Performed By: #### CK, BNP, HS TROP, PT, CBC, BMP ####[facility] [address] [place] [address] USARBC Auto (Bld) [#/Vol]Ordered By: Winnie Farris on 75-29-1819BAW (Bld) [#/Vol]Erythrocytes [#/volume] in Blood by Automated count3.90-5.60[facility] Serum or plasma anion gap determinationOrdered By: Winnie Farris on 08-11-2024 Anion gap [Moles/Vol]Serum or plasma anion gap determination6.0-15.0City Hospitalodium [Moles/volume] in Serum or PlasmaOrdered By: Winnie Farris on 52-35-8109Bqxyua [Moles/Vol]Sodium [Moles/volume] in Serum or KalpxhGbz704-814JbrmkvynxAultman Alliance Community HospitalThyrotropin [Units/volume] in Serum or PlasmaOrdered By: Lydia Connelly on 49-01-3199XVW QnThyrotropin [Units/volume] in Serum or Plasma0.45-5.33[facility] HospitalTS Qn0.50 m[IU]/LNormal0.45-5.33[facility] HospitalComment on above: Result Comment: PERFORMED BY: [place] [address] PATHOLOGIST COASTAL AND ESTUARY SPECIALIST OSCAR HAY M.D.Performed By: #### TSH3 ####[address] [address] USATroponin I High Sensitivityon 99-51-6873Zanaovms I High Gunfxuasxxp69Sdbnwd3-68Daw [facility] Comment on above:Result Comment: The Troponin units of report have been changed to meet the Chest Pain Accreditation requirement, element EC5.M1l2. Troponin units are changed from pg/ml to ng/L. Also, the decimal is removed and results are in whole numbers. PERFORMED BY: [facility] [address] [place] [id number] PATHOLOGIST COASTAL AND ESTUARY SPECIALIST OSCAR HAY M.D.Performed By: #### HS TROP ####[address] [address] USATroponin I High Vwfidwvstna49 Normal0-20The [facility] Physician GroupComment on above:Result Comment: The Troponin units of report have been changed to meet the Chest Pain Accreditation requirement, element EC5.M1l2. Troponin units are changed from pg/ml to ng/L. Also, the decimal is removed and results are in whole numbers. PERFORMED BY: [address] [address] PATHOLOGIST COASTAL AND ESTUARY SPECIALIST OSCAR HAY M.D.Performed By: #### HS TROP ####[place] [address] [place] [address] [facility] HOSPITALTroponin I High Aldelpqdtsk12 Normal0-20The [facility] Physician GroupComment on above:Result Comment: The Troponin units of report have been changed to meet the Chest Pain Accreditation requirement, element EC5.M1l2. Troponin units are changed from pg/ml to ng/L. Also, the decimal is removed and results are in whole numbers. PERFORMED BY: [address] [address] PATHOLOGIST COASTAL AND ESTUARY SPECIALIST OSCAR HAY M.D.Performed By: #### CK, BNP, HS TROP, PT, CBC, BMP ####[address] [address] [place] Troponin I.cardiac [Mass/volume] in Serum or Plasma by Detection limit <= 0.01 ng/Ordered By: Lydia Connelly on 92-16-8896Ofeaoyhx I.cardiac DL <= 0.01 ng/mL [Mass/Vol]Troponin I.cardiac [Mass/volume] in Serum or Plasma by Detection limit <= 0.01 ng/0-20[facility] HospitalComment on above:The Troponin units of report have been changed to meet the Chest Pain Accreditation requirement, element EC5.M1l2. Troponin units are changed from pg/ml to ng/L. Also, the decimal is removed and results are in whole numbers.Urea nitrogen [Mass/volume] in Serum or PlasmaOrdered By: Winnie Farris on 17-60-0925Fype nitrogen [Mass/Vol]Urea nitrogen [Mass/volume] in Serum or Plasma10-31[facility] HospitalWBC Auto (Bld) [#/Vol]Ordered By: Winnie Farris on 66-98-9111CPR (Bld) [#/Vol]Leukocytes [#/volume] in Blood by Automated countHigh 4.1-10.5FDetwiler Memorial HospitalX-ray reportOrdered By: Alex Castro on 34-90-8966Ewxit reportFIRJames Ville [id number] XRay Report Signed Patient: Esme Kaminski MR#: [id number] : 1960 Acct:[id number] Age/Sex: 63 / M ADM Date: 5 Loc: ER Room: Type: [facility] ER Attending Dr: Copies to: Winnie Farris [...] Jr., D.OBarbara 08/11/2024 11:24 AM Dictation Location: [place] [address] Transcribed By: [facility] 08/11/24 1124 Dictated By: Alex Castro Jr, DO 08/11/24 1123 Signed By: 08/11/24 1124 [facility] HospitalXR chest 2V*on 69-25-6530UL chest 2V*[facility] [address] [place] [id number] XRay Report Signed Patient: Esme Kaminski MR#: [id number] : 1960 Acct:[id number] Age/Sex: 63 / M ADM Date: 08/11/24 Loc: ER Room: Type: [facility] ER Attending Dr: Copies to: Winnie Farris [...] Jr, DO 08/11/24 1123 Signed By: 08/11/24 [facility] Physician GroupX-ray reportOrdered By: Gisell Camilo on 10-58-0663Fqguw reportPROTESTANT DEACONESS [facility] [address] [place] [address] XRay Report Signed Patient: Esme Kaminski MR#: [id number] : 1960 Acct:[id number] Age/Sex: 63 / M ADM Date: Loc: [facility] Room: Type: [facility] Attending Dr: Sarai Mendez II, MD [...] NO ACUTE BONY INJURY. Impression dictated by: Gislel Camilo M.D. 08/06/2024 5:00 PM Dictation Location: RADIO-PC-23 Transcribed By: GWEN 08/06/241699 Dictated By: Gisell Camilo MD 08/06/241658 Signed By: 08/06/241699 [facility] Work Phone: XR hip LT min 2V(w/wo pelvis)*on 66-73-1102QI hip LT min 2V(w/wo pelvis)*[facility] [address] [place] [address] XRay Report Signed Patient: Esme Kaminski MR#: [id number] : 1960 Acct:[id number] Age/Sex: 63 / M ADM Date: 08/06/24 Loc: [facility] Room: Type: [facility] Attending Dr: Sarai Mendez II, MD [...] Gisell Camilo MD 08/06/241658 Signed By: 08/06/241699[facility] Physician GroupX-ray reportOrdered By: Ap Paul on 93-20-5135Skhyn reportFIRREGENCY HOSPITAL CLEVEL[facility] [address] [place] [address] XRay Report Signed Patient: Esme Kaminski MR#: [id number] : 1960 Acct:[id number] Age/Sex: 63 / M ADM Date: Loc: 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 Rntz-zj-yhvrizlr degenerative changes elsewhere. No fractures or dislocation.. Mild intercarpal degenerative changes. XR/XR hand LT min 3V* IMPRESSION: NO ACUTE BONY INJURY. Impression dictated by: Ap Paul M.D. 08/04/2024 7:49 PM Dictation Location: [place] [address] Transcribed By: [facility] 08/04/241948 Dictated By: Ap Paul MD 08/04/241946 Signed By: 08/04/241948 [facility] Work Phone: XR hand LT min 3V*on 41-80-0882HW hand LT min 3V* 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 Beqd-ye-xppbkpzm degenerative changes elsewhere. No fractures or dislocation.. Mild intercarpal degenerative changes. XR/XR hand LT min 3V* IMPRESSION: NO ACUTE BONY INJURY. Impression dictated by: Ap Paul M.D. 08/04/2024 7:49 PM Dictation Location: RADIO-PC-29 Transcribed By: [facility] 08/04/241948 Dictated By: Ap Paul MD 08/04/241946 Signed By: 08/04/241948[facility]ician GroupX-ray reportOrdered By: Gisell Camilo on 85-30-9134Ualha reportPROTESTANT [place] [address] XRay Report Signed Patient: Esme Kaminski MR#: [id number] : 1960 Acct:[id number] Age/Sex: 63 / M ADM Date: 5 Loc: ER Room: Type: [facility] ER Attending Dr: Copies to: Cosmo Guzman [...] MD 08/01/24 115 Signed By: 08/01/24 115 [facility] Work Phone: XR hip LT min 2V(w/wo pelvis)*on 58-49-0178NK hip LT min 2V(w/wo pelvis)*[facility] [place] [address] XRay Report Signed Patient: Esme Kaminski MR#: [id number] : 1960 Acct:[id number] Age/Sex: 63 / M ADM Date: 08/01/24 Loc: ER Room: Type: [facility] ER Attending Dr: Copies to: Cosmo Guzman [...] Camilo MD 08/01/24 115 Signed By: 08/01/24 [facility] HospitalAd[facility] Physician GroupCNPNon 26-51-4912HBUJVsxaikqfh (JESSICAN) ESME KAMINSKI ([id number]) 1960 M Date Time Provider Department 07/07/24 HELADIO PINEDA During your visit today, we recorded the following information about you: Heladio Pineda MD 08/18/2024 7:35 PM Addendum Please Call patient if MyChart note not read to review results/released to My Chart if tests completed at [facility]: Mildly high wbc, glucose, and one [...] PANEL [SQCMP] Or (more content not included)...Normal [facility]25([place])D[address] [facility] 765549-ynqhrlupfgdimb D3 [Mass/Vol]19.2 ng/mLLow31.0-80.0[facility] HospitalComment on above:Order Comment: Specimen Type: BLOOD SPECIMEN Ordering Facility: [facility] Address: [address] [place] [address] Comment: Classification of 25 [place] Vitamin D status: Deficiency/Insufficiency: < or = 30 ng/ml. Sufficiency/Optimal Levels: 31-80 ng/mL Toxicity: > 100 ng/mL. Test performed by chemiluminescent immunoassay.Performed By: #### 1989-3 #### [facility] CLIA [id number] [address] [place], [place] [address]CB panel Auto (Bld)on 98-56-4604Pfskkehgycg distribution width (RBC) [Ratio]13.3 %11.5 - 15.0 % [facility] Medical CenterHematocrit (Bld) [Volume fraction]49.9 %39.0 - 51.0 %[facility] CenterHemoglobin (Bld) [Mass/Vol]16.9 g/dL13.0 - 17.0 g/dLOhiohealth Grant Medical Center Interpretation and review of laboratory resultsAbnormalCHenry County HospitalH (RBC) [Entitic mass]35.2 tuBmai23.0 - 34.0 pgClevelNorth Memorial Health HospitalHC (RBC) [Mass/Vol] 33.9 g/dL30.5 - 36.0 g/dLOhiohealth Grant Medical CenterMCV (RBC) [Entitic vol]104 sTCzmv03.0 - 100.0 fLCleveland ClinicNucleated RBC (Bld) [#/Vol]NINFCleveland ClinicPlatelet mean volume (Bld) [Entitic vol]10.6 fL9.0 - 12.7 fLCleveland ClinicPlatelets (Bld) [#/Vol]239 10*3/uLOhiohealth Grant Medical CenterRBC (Bld) [#/Vol]4.8 10*6/uL4.20 - 6.00 m/[facility] Bing, MD, Cancer CenterWBC (Bld) [#/Vol]12.61 10*3/uLHighClermont County HospitalErythrocyte distribution width (RBC) [Ratio]13.3 %Qgnqtm65.5-15.0[facility] Memorial HospitalComment on above:Order Comment: Specimen Type: BLOOD SPECIMEN Ordering Facility: [facility] Address: [address] [place], [place] [address]Performed By: #### 84347-8, 4537-7 #### [facility] CLIA [id number] [address] [place], [place] [address]Hematocrit (Bld) [Volume fraction]49.9 %Kphtzs67.0-51.0[facility] on above:Order Comment: Specimen Type: BLOOD SPECIMEN Ordering Facility: [facility] Address: [address] [place], [place] [address]Performed By: #### 55985-0, 4537-7 #### [facility] CLIA [id number] [address] [place], [place] [address]Hemoglobin (Bld) [Mass/Vol] 16.9 g/bTKwjipy76.0-17.0[facility] on above:Order Comment: Specimen Type: BLOOD SPECIMEN Ordering Facility: [facility] Address: [address] [place], [place] [address]Performed By: #### 87418-0, 4537-7 #### [facility] CLIA [id number] [address] [place] [address] (RBC) [Entitic mass]35.2 ssDqij84.0-34.0[facility] on above:Order Comment: Specimen Type: BLOOD SPECIMEN Ordering Facility: [facility] Address: [address] [place], [place] [address]Performed By: #### 14423-3, 4537-7 #### [facility] CLIA [id number] [address] [place], [place] [address]MCHC (RBC) [Mass/Vol]33.9 g/hZEzldrw34.5-36.0[facility] on above:Order Comment: Specimen Type: BLOOD SPECIMEN Ordering Facility: [facility] Address: [address] [place], [place] [address]Performed By: #### 72962-5, 4537-7 #### [facility] CLIA [id number] [address] [place] [address] (RBC) [Entitic vol]104.0 hSYbso05.0-100.0[facility] on above:Order Comment: Specimen Type: BLOOD SPECIMEN Ordering Facility: [facility] Address: [address] [place], [place] [address]Performed By: #### 86936-9, 4537-7 #### [facility] CLIA [id number] [address] [place] [address] [place] OF AMERICANucleated RBC (Bld) [#/Vol] 10*3/uLNormal<0.01[facility] on above:Order Comment: Specimen Type: BLOOD SPECIMEN Ordering Facility: [facility] Address: [address] [place], [place] [address]Performed By: #### 68865-2, 4537-7 #### [facility] CLIA [id number] [address] [place] [address] [place] AMERICAPlatelet mean volume (Bld) [Entitic vol]10.6 fLNormal9.0-12.7CSt. [facility] on above: Order Comment: Specimen Type: BLOOD SPECIMEN Ordering Facility: [facility] Address: [address] [place], [place] [address]Performed By: #### 08651-9, 4537-7 #### [facility] CLIA [id number] [address] [place] [address] [place] AMERICAPlatelets (Bld) [#/Vol]239 10*3/eJUhfiuv122-047WmsmdwlylMercy Health [facility]iff[facility] Hospital on above:Order Comment: Specimen Type: BLOOD SPECIMEN Ordering Facility: [facility] Address: [address] [place], [place] [address]Performed By: #### 19621-3, 4537-7 #### [facility] CLIA [id number] [address] [place] [address] [place] AMERICARBC (Bld) [#/Vol]4.80 10*6/uLNormal4.20-6.00[facility] on above:Order Comment: Specimen Type: BLOOD SPECIMEN Ordering Facility: [facility] Address: [address] [place], [place] [address]Performed By: #### 23538-4, 4537-7 #### [facility] CLIA [id number] [address] [place] [address] [place] AMERICAWBC (Bld) [#/Vol]12.61 10*3/uLHigh3.70-11.00[facility] on above:Order Comment: Specimen Type: BLOOD SPECIMEN Ordering Facility: [facility] Address: [address] [place], [place] [address]Performed By: #### 17296-5, 4537-7 #### [facility] CLIA [id number] [address] [place], [place] [address]CNOVon 07-15-7923KRUJBxsybz Visit (RADHA) ESME KAMINSKI ([id number]) 1960 M Date Time Provider Department 06/30/24 [...] touching your toes, sit-ups, using row machine instructional facilitator pain recommendations per primary care provider/pain clinic [...] of arms and leg (more content not included)...NormalWilson Memorial HospitalCRP SerPl-mCnc on 45-66-2517RIN [Mass/Vol]0.6 mg/dLNormal<0.9ClevelNovant Health Huntersville Medical CenterComup health system on above:Order Comment: Specimen Type: BLOOD SPECIMEN Ordering Facility: [facility] Address: [address] [place], [place] [address]Performed By: #### 1987-08, 3083-04, #### [facility] CLIA [id number] [address] [place] [address] [place] AMERICAComprehensive metabolic 2000 panelon 96-29-8383Apapqnw [Mass/Vol]4.1 g/dLNormal3.9-4.9CSt. [facility] on above:Order Comment: Specimen Type: BLOOD SPECIMEN Ordering Facility: [facility] Address: [address] [place], [place] [address]Performed By: #### 1987-08, 3083-04, #### [facility] CLIA [id number] [address] [place] [address] [place] AMERICAALP [Catalytic activity/Vol] 67 U/VPwmbvx57-726IqjomdlzcMercy Health Tiffin Hospital on above:Order Comment: Specimen Type: BLOOD SPECIMEN Ordering Facility: [facility] Address: [address] [place], [place] [phone] By: #### 1987-08, 3083-04, #### [facility] CLIA [id number] [address] [place], [place] [address] [place] AMERICAALT [Catalytic activity/Vol] 73 U/VKmcx01-25NgpkfxsyyMercy Health [facility] Hospital on above:Order Comment: Specimen Type: BLOOD SPECIMEN Ordering Facility: [facility] Address: [address] [place], [place] [id number] By: #### 1987-08, 3083-04, #### [facility] CLIA [id number] [address] [place], [place] [address] [place] AMERICAAnion gap [Moles/Vol]14 mmol/LNormal8-15[facility] on above:Order Comment: Specimen Type: BLOOD SPECIMEN Ordering Facility: [facility] Address: [address] [place], [place] [phone] By: #### 1987-08, 3083-04, #### [facility] CLIA [id number] [address] [place], [place] [address] [place] OF AMERICAAST [Catalytic activity/Vol] 35 U/CHkjnje67-64TglfgpdcxMercy Health [facility] Hospital on above:Order Comment: Specimen Type: BLOOD SPECIMEN Ordering Facility: [facility] Address: [address] [place] [phone] By: #### 1987-08, 3083-04, #### [facility] CLIA [id number] [address] [place], [place] [address] [place] AMERICABilirubin [Mass/Vol]0.7 mg/dLNormal0.2-1.3CSt. [facility] on above:Order Comment: Specimen Type: BLOOD SPECIMEN Ordering Facility: [facility] Address: [address] [place] [address] 58[address]Vrzzktrwd By: #### 1987-08, 3083-04, #### [facility] CLIA [id number] [address] [place] [address] [place] AMERICACalcium [Mass/Vol]9.7 mg/dL Normal8.5-10.2CSt. [facility]'s Hospital on above:Order Comment: Specimen Type: BLOOD SPECIMEN Ordering Facility: [facility] Address: [address] [place], [place] [phone] By: #### 1987-08, 3083-04, #### [facility] CLIA [id number] [address] [place] [address] [place] AMERICAChloride [Moles/Vol]97 mmol/LBfa76-532PcxvgvchlMercy Health Tiffin Hospital on above:Order Comment: Specimen Type: BLOOD SPECIMEN Ordering Facility: [facility] Address: [address] [place], [place] [phone] By: #### 1987-08, 3083-04, #### [facility] CLIA [id number] [address] [place] [address] [place] AMERICACO2 [Moles/Vol]24 mmol/L Ocdovw03-16DhbchicziMercy Health Tiffin Hospital on above:Order Comment: Specimen Type: BLOOD SPECIMEN Ordering Facility: [facility] Address: [address] [place] [phone] By: #### 1987-08, 3083-04, #### [facility] CLIA [id number] [address] [place], [place] [address] [place] AMERICACreatinine [Mass/Vol]0.93 mg/dLNormal0.73-1.22[facility] on above:Order Comment: Specimen Type: BLOOD SPECIMEN Ordering Facility: [facility] Address: [address] [place], [place] [phone] By: #### 1987-, 308-, 39748-1 #### [facility] CLIA [id number] [address] [place] [address] [place] AMERICACreatinine and Glomerular filtration rate.predicted panel (S/P/Bld)92 mL/min/1.73m???Normal>=60[facility] on above:Order Comment: Specimen Type: BLOOD SPECIMEN Ordering Facility: [facility] Address: [address] [place] [address]Mmwdnn Comment: Estimated Glomerular Filtration Rate (eGFR) is [...] reflect actual GFR.Performed By: #### 1987-08, 3083-04, 88871-2 #### [facility] CLIA [id number] [address] [place] [address] [place] AMERICAGlucose [Mass/Vol]213 mg/dL Lzul33-28PwwcnvuytMercy Health Tiffin Hospital on above:Order Comment: Specimen Type: BLOOD SPECIMEN Ordering Facility: [facility] Address: [address] [place] [id number] Comment: The [place] Diabetes Association (ADA) provides guidance for cutoff [...] Standards of Medical Care in Diabetes 2016, [place] [employer]. Diabetes Care. 2016.39(Suppl 1).Performed By: #### 1987, 3083-04, #### [facility] CLIA [id number] [address] [place] [address] [place] AMERICAPotassium [Moles/Vol]4.5 mmol/LNormal3.7-5.1CSt. [facility]'s Hospital on above:Order Comment: Specimen Type: BLOOD SPECIMEN Ordering Facility: [facility] Address: [address] [place], [place] [address]Performed By: #### 1987-08, 3083-04, #### [facility] CLIA [id number] [address] [place] [address] [place] AMERICAProtein [Mass/Vol]7.1 g/dL Normal6.3-8.0[facility] on above:Order Comment: Specimen Type: BLOOD SPECIMEN Ordering Facility: [facility] Address: [address] [place], [place] [address]Performed By: #### 1987-08, 3083-04, #### [facility] CLIA [id number] [address] [place] [address] [place] AMERICASodium [Moles/Vol]135 mmol/L Cjx474-944SvshltolsMercy Health Tiffin Hospital on above:Order Comment: Specimen Type: BLOOD SPECIMEN Ordering Facility: [facility] Address: [address] [place], [place] [address]Performed By: #### 1987-08, 3083-04, #### [facility] CLIA [id number] [address] [place], [place] [address] [place] AMERICAUrea nitrogen [Mass/Vol]20 mg/dLNormal9-24[facility] on above:Order Comment: Specimen Type: BLOOD SPECIMEN Ordering Facility: [facility] Address: [address] [place], [place] [phone] By: #### 1987-08, 3083-04, #### [facility] CLIA [id number] [address] [place] [address] [place] AMERICAESR Westergren method (Bld) [Velocity]on 60-03-3635VED (Bld) [Velocity]12 mm/hNormal0-15[facility] Memorial HospitalComup health system on above:Order Comment: Specimen Type: BLOOD SPECIMEN Ordering Facility: [facility] Address: [address] [place], [place] [address]Performed By: #### 93106-4, 4537-7 #### [facility] CLIA [id number] [address] [place] [address] [place] AMERICAErythrocyte distribution width Auto (RBC) [Ratio]on 80-29-5596Josscvbhcod distribution width (RBC) [Ratio]Erythrocyte distribution width [Ratio] by Automated count11.5-15.0 [facility] HospitalHematocrit Auto (Bld) [Volume fraction]on 12-34-1497Xeiuhzsdvl (Bld) [Volume fraction]Hematocrit [Volume Fraction] of Blood by Automated count39.0-51.0[facility] HospitalHemoglobin [Mass/volume] in Bloodon 69-75-1589Smafljkxdh (Bld) [Mass/Vol]Hemoglobin [Mass/volume] in Blood13.0-17.0[facility] HospitalLaboratory - Chemistry and Chemistry - challengeon 05-43-0169Jmlregx [Mass/Vol]4.1 g/dL 3.9-4.9[facility] HospitalALP [Catalytic activity/Vol]67 U/L38-113 [facility] HospitalALT [Catalytic activity/Vol]73 U/KJstq35-19 [facility] HospitalAST [Catalytic activity/Vol]35 U/L14-40 [facility] HospitalBilirubin [Mass/Vol]0.7 mg/dL0.2-1.3FDetwiler Memorial HospitalCalcium [Mass/Vol]9.7 mg/dL8.5-10.2FDetwiler Memorial HospitalChloride [Moles/Vol]97 mmol/KMdh13-000SsgwzuevyAultman Alliance Community HospitalCO2 [Moles/Vol]24 mmol/Y57-58MpasmqcouAultman Alliance Community HospitalCreatinine [Mass/Vol]0.93 mg/dL0.73-1.22[facility] HospitalGlucose [Mass/Vol] 213 mg/hKUbbt75-93OzbjpiqypAultman Alliance Community HospitalComment on above:The [place] Diabetes Association (ADA) provides guidance for cutoff [...] diabetes.Reference: Standardsof Medical Care in Diabetes 2016, [place] Diabetes Association. Diabetes Care. 2016.39(Suppl 1). Potassium [Moles/Vol]4.5 mmol/L3.7-5.1FSelect Medical Cleveland Clinic Rehabilitation Hospital, Edwin Shawodium [Moles/Vol]135 mmol/NStk752-902TpbrjbjkwAultman Alliance Community HospitalUrate [Mass/Vol] 6.4 mg/dL4.0-8.1FDetwiler Memorial HospitalUrea nitrogen [Mass/Vol]20 mg/dL9-24[facility] HospitalLaboratory - Hematology and Cell countson 44-81-3821LBK (Bld) [Velocity]12 mm/h0-15[facility] HospitalLeukocytes [#/volume] corrected for nucleated erythrocytes in Blood by Automated counon 99-37-1192YKY corrected for nucl RBC Auto (Bld) [#/Vol] Leukocytes [#/volume] corrected for nucleated erythrocytes in Blood by Automated counHigh3.70-11.00[facility] HospitalMCH Auto (RBC) [Entitic mass]on 99-60-6930NHI (RBC) [Entitic mass]MCH [Entitic mass] by Automated count High26.0-34.0[facility] Hospital, BeachwoodHC Auto (RBC) [Mass/Vol]on 17-20-7346XPBL (RBC) [Mass/Vol]MCHC [Mass/volume] by Automated count30.5-36.0 [facility] HospitalMCV Auto (RBC) [Entitic vol]on 93-82-9130UBX (RBC) [Entitic vol]MCV [Entitic volume] by Automated vhhjaRdxd37.0-100.0 [facility] HospitalNo Panel Informationon 228558-Tqrxetz Vitamin D Total19.2 ng/mLLow31.0-80.0[facility] HospitalComment on above:Classification of 25 [place] Vitamin D status: Deficiency/Insufficiency: < or = 30 ng/ml.Sufficiency/Optimal Levels: 31-80 ng/mLToxicity: > 100 ng/mL. Test performed by chemiluminescent immunoassay.C-Reactive Protein, Quantitative0.6 mg/dL<0.9[facility] HospitalEstimated GFR (CKD-EPI)92 mL/min/1.73m???>=60[facility] HospitalComment on above:Estimated Glomerular Filtration Rate (eGFR) [...] reflect actual GFR.Nucleated RBC Auto (Bld) [#/Vol]on 02-09-0916Wrupjhtza RBC (Bld) [#/Vol]Nucleated erythrocytes [#/volume] in Blood by Automated count<0.01[facility] HospitalPlatelet mean volume Auto (Bld) [Entitic vol]on 90-26-9377Yxuqlqoi mean volume (Bld) [Entitic vol] Platelet mean volume [Entitic volume] in Blood by Automated count9.0-12.7 [facility] HospitalPlatelets Auto (Bld) [#/Vol]on 06-30-2024 Platelets (Bld) [#/Vol]Platelets [#/volume] in Blood by Automated cqhfu409-599 [facility] HospitalProtein [Mass/volume] in Serum or Plasmaon 63-35-2736Xpiyyro [Mass/Vol]Protein [Mass/volume] in Serum or Plasma6.3-8.0 [facility] HospitalRBC Auto (Bld) [#/Vol]on 64-01-9214RUO (Bld) [#/Vol]Erythrocytes [#/volume] in Blood by Automated count4.20-6.00City Hospitalerum or plasma anion gap determinationon 50-99-2829Iydrh gap [Moles/Vol]Serum or plasma anion gap determination8-15[facility] HospitalUrate SerPl-mCncon 83-15-5871Irnhg [Mass/Vol]6.4 mg/dLNormal 4.0-8.1CSt. [facility]'s Hospital on above:Order Comment: Specimen Type: BLOOD SPECIMEN Order[facility] Facility[facility] Address: [address] [place], [place] [address]Performed By: #### 1988-5, 3084-1, 72727-7 #### [facility] CLIA [id number] [address] [place] [address] [address]CT WATCHMAN FULL CONTRASTon 13-75-8897CT WATCHMAN FULL CONTRASTInterpreted By: Marcial Boyd, ADDENDUM: [...] PM -------- ORIGINAL REPORT -------- Dictation workstation: [id number] Interpreted By: Marcial Barreto, STUDY: CT WATCHMAN FULL CONTRAST; 06/13/2024 2:23 pm INDICATION: Signs/Symptoms:A-fib, Post Watchman. COMPARISON: None. ACCESSION NUMBER(S): [id number] ORDERING CLINICIAN: BIRD KOWALSKI TECHNIQUE: Using multidetector [...] surface/left atrial aspect of closure device. Reading Sales Stock Associate: Dr. Marcial Barreto, Date: 06/15/2024 2:13 pm Signed by: Marcial Barreto 06/15/2024 2:17 PM Dictation workstation: [id number] Marion General HospitalAlbumin [Mass/volume] in Serum or Plasma by Bromocresol green (BCG) dye binding methoOrdered By: Bird Kowalski on 46-05-8871Shcqaez BCG dye [Mass/Vol] Albumin [Mass/volume] in Serum or Plasma by Bromocresol green (BCG) dye binding metho3.5-5.7FDetwiler Memorial HospitalCalcium [Mass/volume] in Serum or PlasmaOrdered By: Bird Kowalski on 05-88-5387Pbygdjw [Mass/Vol]Calcium [Mass/volume] in Serum or Plasma8.6-10.3FDetwiler Memorial HospitalCarbon dioxide, total [Moles/volume] in Serum or PlasmaOrdered By: Bird Kowalski on 06-85-1186UY6 [Moles/Vol]Carbon dioxide, total [Moles/volume] in Serum or Plasma 21.0-31.0[facility] HospitalChloride [Moles/volume] in Serum or PlasmaOrdered By: Bird Kowalski on 21-71-7812Mtvdxfyz [Moles/Vol]Chloride [Moles/volume] in Serum or Upehxa43-213TojyoowluAultman Alliance Community Hospital Creatinine [Mass/volume] in Serum or PlasmaOrdered By: Bird Kowalski on 75-92-8589Vfsjwtulkv [Mass/Vol]Creatinine [Mass/volume] in Serum or Plasma 0.70-1.30[facility] HospitalGlucose [Mass/volume] in Serum or PlasmaOrdered By: Bird Kowalski on 82-79-2821Ohdvrdr [Mass/Vol]Glucose [Mass/volume] in Serum or OnedylEzku35-226YmluoqbypAultman Alliance Community Hospital Comment on above:ADA recommended reference rangeRandom Glucose Reference Range is dependent on time and content of last meal. Glucose of more than 200 mg/dL in a nonstressed, ambulatory subject supports the diagnosisof Diabetes Mellitus.No Panel InformationOrdered By: Bird Kowalski on 29-46-9758Tzuffcwfz GFR (CKD-EPI)> 60.0 mL/MinAultman Alliance Community HospitalPharmacy Creatinine Clearance (Chem N/Community Memorial HospitalPhosphate [Mass/volume] in Serum or Plasma Ordered By: Bird Kowalski on 29-34-7522Fdzylmhoo [Mass/Vol]Phosphate [Mass/volume] in Serum or Plasma2.5-4.5FDetwiler Memorial Hospital Potassium [Moles/volume] in Serum or PlasmaOrdered By: Bird Kowalski on 80-13-9624Uyceqqqma [Moles/Vol]Potassium [Moles/volume] in Serum or Plasma 3.5-5.1FDetwiler Memorial HospitalRenal Function Panelon 65-55-6336Nhkxizu [Mass/Vol]4.1 g/dLNormal3.5-5.7The [facility] Physician GroupComment on above: Result Comment: PERFORMED BY: [facility] [address] [place] [address] PATHOLOGIST COASTAL AND ESTUARY SPECIALIST OSCAR HAY M.D.Performed By: #### RENAL ####[address] [address] USAAnion gap [Moles/Vol]11.9 mmol/LNormal6.0-15.0The [facility] Physician GroupComment on above:Performed By: #### RENAL ####[address] [place] [address] USACalcium [Mass/Vol]9.1 mg/dLNormal8.6-10.3The [facility] Physician [facility] Comment on above:Performed By: #### RENAL ####[address] [address] USAChloride [Moles/Vol]102 mmol/EBotlbp30-774Hpw [facility] Physician [facility] HospitalComment on above:Performed By: #### RENAL ####[address] [address] USACO2 [Moles/Vol]27.4 mmol/VGojroo98.0-31.0The [facility] Physician GroupComment on above:Performed By: #### RENAL ####[address] [address] USACreatinine [Mass/Vol]0.91 mg/dLNormal0.70-1.30The [facility] Physician [facility] HospitalComment on above:Performed By: #### RENAL ####[place] [id number] USAGFR/1.73 sq M.predicted MDRD (S/P/Bld) [Vol rate/Area]mL/min/{1.73_m2}NormalThe Formerly [facility] Physician GroupComment on above:Performed By: #### RENAL ####[place] [address] USAGlucose [Mass/Vol]169 mg/dL Uoyg69-145Ben [facility] Physician GroupComment on above:Result Comment: Random Glucose Reference Range is dependent on time and content of last meal. Glucose of more than 200 mg/dL in a nonstressed, ambulatory subject supports the diagnosis of Diabetes Mellitus. ADA recommended reference rangePerformed By: #### RENAL ####[place] [address] USAPhosphate [Mass/Vol]3.9 mg/dL Normal2.5-4.5The [facility] Physician GroupComment on above:Performed By: #### RENAL ####[place] [address] [place] Potassium [Moles/Vol]4.3 mmol/LNormal3.5-5.1The [facility] Physician GroupComment on above:Performed By: #### RENAL ####[place] [id number] USASodium [Moles/Vol]137 mmol/HPfuisa190-589Bum [facility] Physician GroupComment on above:Performed By: #### RENAL ####[place] [address] USAUrea nitrogen [Mass/Vol]24 mg/dLNormal7-25The [facility] Physician GroupComment on above: Performed By: #### RENAL ####[place] [address] USASerum or plasma anion gap determinationOrdered By: Bird Kowalski on 14-61-7043Qwatt gap [Moles/Vol]Serum or plasma anion gap determination6.0-15.0City Hospitalodium [Moles/volume] in Serum or PlasmaOrdered By: Bird Kowalski on 80-63-0675Mckdkz [Moles/Vol]Sodium [Moles/volume] in Serum or Woneki011-412PsxoohchwAultman Alliance Community HospitalUrea nitrogen [Mass/volume] in Serum or PlasmaOrdered By: Bird Koawlski on 05-29-2024 Urea nitrogen [Mass/Vol]Urea nitrogen [Mass/volume] in Serum or Plasma7-25 [facility] HospitalBasic metabolic 2000 panelon 74-27-3236Dzcdl gap [Moles/Vol]13 mmol/L10 - 20 mmol/[facility] HospitalCalcium [Mass/Vol]9.1 mg/dL8.6 - 10.6 mg/dLUnEast [place] Regional HospitalChloride [Moles/Vol]100 mmol/L98 - 107 mmol/[facility] HospitalCO2 [Moles/Vol]26 mmol/L21 - 32 mmol/[facility] HospitalCreatinine [Mass/Vol]1.02 mg/dL0.50 - 1.30 mg/dLUnEast Ohio Regional HospitalGFR/1.73 sq M.predicted among non-blacks MDRD (S/P/Bld) [Vol rate/Area]82 mL/min/{1.73_m2}- PINFUniVeterans Health Administration on above: Calculations of estimated GFR are performed using the 2020 CKD-EPI Study Refit equation without therace variable for the IDMS-Traceable creatinine methods. https://jasn.asnjournals.org/content//ASN.1670037974 Glucose [Mass/Vol]142 mg/cAEqny54 - 99 mg/dLUnEast [place] Regional Hospital Potassium [Moles/Vol]3.7 mmol/L3.5 - 5.3 mmol/[facility] Sodium [Moles/Vol]135 mmol/WBsf719 - 145 mmol/[facility] Urea nitrogen [Mass/Vol]18 mg/dL6 - 23 mg/dLUnEast [place] Regional Hospital Blood type and Indirect antibody screen panel (Bld)on 19-18-9560LFT group Nom (Bld)AUnEast [place] Regional HospitalBlood group antibody screen QlNegative Wayne HospitalD Ag Ql (Bld)PositiveUnGeorgetown Behavioral Hospital on above:2nd ABO test required. Order and Collect VERAB Wayne HospitalCB W Auto Differential panel (Bld)on 78-79-2292Rclpyzfer (Bld) [#/Vol]0.04 10*3/uLWayne Hospital Basophils/100 WBC (Bld)0.4 %0.0 - 2.0 %[facility] Eosinophils (Bld) [#/Vol]0.02 10*3/uLWayne Hospital Eosinophils/100 WBC (Bld)0.2 %0.0 - 6.0 %[facility] Erythrocyte distribution width (RBC) [Ratio]11.8 %11.5 - 14.5 %[facility] HospitalHematocrit (Bld) [Volume fraction]45.3 %41.0 - 52.0 % [facility] HospitalHemoglobin (Bld) [Mass/Vol]15.6 g/dL13.5 - 17.5 g/dLUnEast [place] Regional HospitalImmaglenbeigh hospital granulocytes (Bld) [#/Vol]0.09 10*3/uLWayne HospitalImcrittenton behavioral health granulocytes/100 WBC (Bld)0.9 % 0.0 - 0.9 %[facility] on above:Immature Granulocyte Count (IG) includes promyelocytes, myelocytes and metamyelocytes but does not include bands. Percent differential counts (%) should be interpreted in the context of the absolute cell counts (cells/UL).Interpretation and review of laboratory resultsAbnormalUniUniversity Hospitals Portage Medical CenterLymphocytes (Bld) [#/Vol]1.14 10*3/uLLowUnEast Ohio Regional HospitalLymphocytes/100 WBC (Bld) 11 %13.0 - 44.0 %Wayne HospitalMCH (RBC) [Entitic mass]35.9 fwRhff79.0 - 34.0 pgOhioHealth Hardin Memorial HospitalHC (RBC) [Mass/Vol]34.4 g/dL32.0 - 36.0 g/dLOhioHealth Hardin Memorial HospitalV (RBC) [Entitic vol]104 sRDmoy64 - 100 fLUniUniversity Hospitals Portage Medical CenterMonocytes (Bld) [#/Vol]0.74 10*3/[facility] HospitalMonocytes/100 WBC (Bld)7.1 %2.0 - 10.0 % Wayne HospitalNeutrophils (Bld) [#/Vol]8.36 10*3/uLFayette County Memorial HospitalComment on above:Percent differential counts (%) should be interpreted in the context of the absolute cell counts (cells/uL). Neutrophils/100 WBC (Bld)80.4 %40.0 - 80.0 %[facility] Nucleated RBC/100 WBC (Bld) [Ratio]0 %[facility] HospitalPlatelets (Bld) [#/Vol]143 10*3/[facility] HospitalRBC ([facility]ld) [#/Vol] 4.35 10*6/[facility] HospitalWBC (Bld) [#/Vol]10.4 10*3/uL [facility] HospitalCT watchman full contraston . No evidence of [...] Alonzo Holbrook 01/29/2024 10:03 AM Dictation workstation: [id number] By: Alonzo Holbrook, STUDY: CT WATCHMAN FULL CONTRAST; 01/29/2024 9:29 am INDICATION: Signs/Symptoms:A-fib, Pre-Watchman, MARIO Sizing, R/O MARIO Thrombus. ,I48.91 Unspecified atrial fibrillation (Multi) COMPARISON: None. ACCESSION NUMBER(S): [id number] ORDERING CLINICIAN: BIRD KOWALSKI TECHNIQUE: Using multi-detector [...] atrial fibrillation (Multi) COMPARISON: None. ACCESSION NUMBER(S): [id number] ORDERING CLINICIAN: BIRD KOWALSKI TECHNIQUE: Using multi-detector [...] Alonzo Holbrook 01/29/2024 10:03 AM Dictation workstation: [id number] [facility] Work Phone: Radiology Study observation (narrative)[facility] Work Phone: [phone] watchman full contrastOrdered By: Alonzo Holbrook on 85-78-1581MdrstbfaceEast [facility] Regional Hospital Work Phone: [phone] 12 leadOrdered By: Adrien Burk on 86-24-9770Evsrgz Xmpi80ZEFIykcvtueytBellevue Hospital Work Phone: [phone] Lchl77dyezqsfObshjyoylmSt. Vincent Hospital Work Phone: [phone] Rbpfon846 [facility] Work Phone: [phone] Lnlfh830 [facility] Work Phone: [phone] Pccsymjl233 [facility] Work Phone: [phone] Sndsj028 [facility] Work Phone: [phone] Aeech66quziiFelyjgccenLutheran Hospital of [facility] Work Phone: [phone] Myoksaze083 [facility] Work Phone: [phone] Exodvgbg015 [facility] Work Phone: QTC Calculation(Bazett)467 [facility] Work Phone: [phone] Xrrjfsrocd473 [facility] Work Phone: [phone] Easton-10deOhio[facility] Work Phone: [phone] Tvmq787ncldxqfCcscehpmqdOhioHealth Mansfield Hospital Work Phone: [phone] Qbzgza302 msUnEast Ohio Regional Hospital Work Phone: Ventricular Whfw31BVUEbigmsfvgzEast Ohio Regional Hospital Work Phone: UnEast [facility] Work Phone: ECG 12 leadon 09-57-9590Kzbzs rhythm with occasional Premature ventricular complexes Inferior infarct , age undetermined Abnormal ECG No previous ECGs available Confirmed by Adrien Burk ([id number]) on 01/29/2024 4:23:52 PMAdrien Garcia MD - 01/29/2024 Sinus rhythm with occasional Premature ventricular complexes Inferior infarct , age undetermined Abnormal ECG No previous ECGs available Confirmed by Adrien Burk ([id number]) on 01/29/2024 4:23:52 PM [facility] Work Phone: Magnesiumon 55-42-7808Aylbsvuls [Mass/Vol]1.43 mg/dL Low1.60 - 2.40 mg/dLUnEast Ohio Regional HospitalNo Panel Informationon 61-53-0901Lalaxxtlsgayzr and review of laboratory resultsAbnoMetroHealth Main Campus Medical CenterUnEast [facility] Regional HospitalPT Coag (PPP) [Time]on 02-28-5503XBH Coag (PPP) [Relative time]1 {INR}0.9 - 1.1UnEast Ohio Regional HospitalInterpretation and review of laboratory resultsNormSt. Mary's Medical Center, Ironton CampusUnEast [place] Regional HospitalProtime-INRon 01-29-2024 PT Coag (PPP) [Time]11 [facility] HospitalUS Heart Transthoracic Ordered By: Haris Beverly on 47-03-9820MJ EF53 %[facility] Work Phone: UnEast [facility] Hospital Work Phone: US Heart Transthoracicon 01-29-2024 [facility], [address] [place] [address] and TRANSTHORACIC ECHOCARDIOGRAM REPORT Patient Name: ESME KAMINSKI Reading Physician: [id number] Haris Beverly MD Study Date: 01/29/2024 Ordering Provider: [id number] SAMMI LOREDO MRN/PID: [id number] Fellow: Nurse: Date of /Age: 9 1960 / 63 years Deputy County Attorney: Tanisha VASQUEZ Gender: M Additional Staff: Height: 177.00 cm Admit Date: 01/29/2024 Weight: 110.68 kg Admission Status: Inpatient - Routine BSA / BMI: 2.26 m2 / 35.33 kg/m2 Blood Pressure: 138/84 mmHg Department Location: [facility] 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 Operator Study Type: TRANSTHORACIC ECHO (TTE) LIMITED Diagnosis/ICD: Presence of other cardiac implants and grafts-Z95.818 Indication: Post LAAO CPT Code: Echo Limited-02533 Patient History: Pertinent History: A-Fib, CAD, Hyperlipidemia [...] machine learning algorithm (EchoGo Heart Failure by Specialized Tech), the analysis of the apical 4-chamber echocardiogram [...] 53 % LV EF Reported: 53 % [id number] Haris Beverly MD Electronically signed on 01/29/2024 at 3:36:47 PM Final Haris Sevilla MD - 01/29/2024 [facility], [address] [place] [address] and TRANSTHORACIC ECHOCARDIOGRAM REPORT Patient Name: ESME Fischer Physician: [id number] Haris Beverly MD Study Date: 01/29/2024 Ordering Provider: [id number] SAMMI LOREDO MRN/PID: [id number] Fellow: Nurse: Date of /Age: 9 1960 / 63 years Deputy County Attorney: Tanisha VASQUEZ Gender: M Additional Staff: Height: 177.00 cm Admit Date: 01/29/2024 Weight: 110.68 kg Admission Status: Inpatient - Routine BSA / BMI: 2.26 m2 / 35.33 kg/m2 Blood Pressure: 138/84 mmHg Department Location: [facility] 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 Operator Study Type: TRANSTHORACIC ECHO (TTE) LIMITED Diagnosis/ICD: Presence of other cardiac implants and grafts-Z95.818 Indication: Post LAAO CPT Code: Echo Limited-71310 Patient History: Pertinent History: A-Fib, CAD, Hyperlipidemia [...] machine learning algorithm (EchoGo Heart Failure by Special[employer] Tech), the analysis of the apical 4-chamber echocardiogram [...] 53 % LV EF Reported: 53 % [id number] Haris Beverly MD Electronically signed on 01/29/2024 at 3:36:47 PM Final [facility] Work Phone: [facility], [address] [place] [address] and TRANSTHORACIC ECHOCARDIOGRAM REPORT Patient Name: ESME Fischer Physician: [id number] Savana Williamson MD Study Date: 01/29/2024 Ordering Provider: [id number] SAMMI LOREDO MRN/PID: [id number] Fellow: Nurse: Date of /Age: 9 1960 / 63 years Deputy County Attorney: Angela Tran RDCS Gender: M Additional Staff: Height: 177.80 cm Admit Date: Weight: 110.68 kg Admission Status: Inpatient - Routine BSA / BMI: 2.27 m2 / 35.01 kg/m2 Blood Pressure: 121/71 mmHg Department Location: [facility] 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 Operator Study Type: TRANSTHORACIC ECHO (TTE) LIMITED Diagnosis/ICD: Encounter for other preprocedural examination-Z01.818 Indication: Pre LAAO CPT Code: Echo Limited-14986 Patient History: Pertinent History: Persistent afib, ICM, [...] however appears to have an inferior/inferolateral wall ovnt7dy abnormality. Left Atrium: The left atrium is [...] however appears to have an inferior/inferolateral wall lvil9cg abnormality. 4. The left atrium is enlarged. 5. There is moderate mitral annular calcification. 6. Limited TTE pre LAAO closure device placement. 7. No prior echocardiogram available for comparison. QUANTITATIVE DATA SUMMARY: AORTA MEASUREMENTS: Normal Ranges: Ao Sinus, d: 4.30 cm (2.1-3.5cm) [id number] Savana Williamson MD Electronically signed on 01/29/2024 at 3:21:38 PM Final Savana Valenzuela MD - 01/29/2024 [facility], [address] [place] [address] and TRANSTHORACIC ECHOCARDIOGRAM REPORT Patient Name: ESME Fischer Physician: [id number] Savana Williamson MD Study Date: 01/29/2024 Ordering Provider: [id number] SAMMI LOREDO MRN/PID: [id number] Fellow: Nurse: Date of /Age: 9 1960 / 63 years Deputy County Attorney: Angela Tran [facility] Gender: M Additional Staff: Height: 177.80 cm Admit Date: Weight: 110.68 kg Admission Status: Inpatient - Routine BSA / BMI: 2.27 m2 / 35.01 kg/m2 Blood Pressure: 121/71 mmHg Department Location: [facility] 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 Operator Study Type: TRANSTHORACIC ECHO (TTE) LIMITED Diagnosis/ICD: Encounter for other preprocedural examination-Z01.818 Indication: Pre LAAO CPT Code: Echo Limited-42929 Patient History: Pertinent History: Persistent afib, ICM, [...] however appears to have an inferior/inferolateral wall mulw1hw abnormality. Left Atrium: The left atrium is [...] however appears to have an inferior/inferolateral wall mpym1bo abnormality. 4. The left atrium is enlarged. 5. There is moderate mitral annular calcification. 6. Limited TTE pre LAAO closure device placement. 7. No prior echocardiogram available for comparison. QUANTITATIVE DATA SUMMARY: AORTA MEASUREMENTS: Normal Ranges: Ao Sinus, d: 4.30 cm (2.1-3.5cm) [id number] Savana Williamson MD Electronically signed on 01/29/2024 at 3:21:38 PM Final [facility] Work Phone: US Heart TransthoracicOrdered By: Savana Williamson on 27-49-0599LljqahjzssEast Ohio Regional Hospital Work Phone: Basophils Auto (Bld) [#/Vol]Ordered By: Bird Kowalski on 84-28-6503Rhjohumau (Bld) [#/Vol]0.1 10*3/uL0.0-0.2FDetwiler Memorial HospitalBasophils (Bld) [#/Vol]Automated basophil count0.0-0.2FDetwiler Memorial HospitalBasophils/100 WBC Auto (Bld)Ordered By: Bird Kowalski on 01-24-2024 Basophils/100 WBC (Bld)0.4 %.[facility] HospitalBasophils/100 WBC (Bld)Automated basophil %.[facility] HospitalCalcium [Mass/volume] in Serum or PlasmaOrdered By: Bird Kowalski on 02-93-8120Numpgif [Mass/Vol]9.6 mg/dL8.6-10.3FDetwiler Memorial HospitalCalcium [Mass/Vol]Calcium [Mass/volume] in Serum or Plasma8.6-10.3FDetwiler Memorial HospitalCarbon dioxide, total [Moles/volume] in Serum or PlasmaOrdered By: Bird Kowalski on 47-23-3037QF5 [Moles/Vol]28.4 mmol/L21.0-31.0[facility] CO2 [Moles/Vol]Carbon dioxide, total [Moles/volume] in Serum or Sokwfy51.0-31.0 [facility] HospitalChloride [Moles/volume] in Serum or Plasma Ordered By: Bird Kowalski on 32-90-6746Lkzxmfey [Moles/Vol]101 mmol/L98-107 [facility] HospitalChloride [Moles/Vol]Chloride [Moles/volume] in Serum or Pnflzw39-301AusdvpktgAultman Alliance Community HospitalCreatinine [Mass/volume] in Serum or PlasmaOrdered By: Bird Kowalski on 61-96-1792Loowckvklk [Mass/Vol] 0.98 mg/dL0.70-1.30[facility] HospitalCreatinine [Mass/Vol] Creatinine [Mass/volume] in Serum or Plasma0.70-1.30[facility] HospitalEosinophils Auto (Bld) [#/Vol]Ordered By: Bird Kowalski on 01-24-2024 Eosinophils (Bld) [#/Vol]0.1 10*3/uL0.0-0.45[facility] Eosinophils (Bld) [#/Vol]Automated eosinophil count0.0-0.45[facility] HospitalEosinophils/100 WBC Auto (Bld)Ordered By: Bird Kowalski on 42-58-8329Vncrxotpkbn/100 WBC (Bld)0.4 %.[facility] Eosinophils/100 WBC (Bld)Automated eosinophil %.[facility] HospitalErythrocyte distribution width Auto (RBC) [Ratio]Ordered By: Bird Kowalski on 95-95-4605Dvtvhbvqted distribution width (RBC) [Ratio]13.3 %12.0-14.8 [facility] HospitalErythrocyte distribution width (RBC) [Ratio] Erythrocyte distribution width [Ratio] by Automated count12.0-14.8[facility] HospitalGlucose [Mass/volume] in Serum or PlasmaOrdered By: Bird Kowalski on 89-18-2064Spegxdg [Mass/Vol]160 mg/rPTodi72-168TijndpqgbAultman Alliance Community HospitalComment on above:ADA recommended reference rangeRandom Glucose Reference Range is dependent on time and content of last meal. Glucose of more than 200 mg/dL in a nonstressed, ambulatory subject supports the diagnosisof Diabetes Mellitus.Glucose [Mass/Vol]Glucose [Mass/volume] in Serum or SzayksVisi82-987SulpbfgszAultman Alliance Community HospitalComment on above:ADA recommended reference rangeRandom Glucose Reference Range is dependent on time and content of last meal. Glucose of more than 200 mg/dL in a nonstressed, ambulatory subject supports the diagnosisof Diabetes Mellitus.Hematocrit Auto (Bld) [Volume fraction]Ordered By: Bird Kowalski on 06-18-7563Dfchqrslls (Bld) [Volume fraction]46.5 %38.8-50.0[facility] HospitalHematocrit (Bld) [Volume fraction]Hematocrit [Volume Fraction] of Blood by Automated count 38.8-50.0[facility] HospitalHemoglobin [Mass/volume] in Blood Ordered By: Bird Kowalski on 58-74-9995Htqdfdlfrt (Bld) [Mass/Vol]16.0 g/dL 13.0-17.0[facility] HospitalHemoglobin (Bld) [Mass/Vol]Hemoglobin [Mass/volume] in Blood13.0-17.0[facility] HospitalLeukocytes [#/volume] corrected for nucleated erythrocytes in Blood by Automated coun Ordered By: Bird Kowalski on 34-54-1306YPH corrected for nucl RBC Auto (Bld) [#/Vol]12.6 10*3/uLHigh4.1-10.5FDetwiler Memorial HospitalWBC corrected for nucl RBC Auto (Bld) [#/Vol]Leukocytes [#/volume] corrected for nucleated erythrocytes in Blood by Automated counHigh4.1-10.5FDetwiler Memorial HospitalLymphocytes Auto (Bld) [#/Vol]Ordered By: Bird Kowalski on 01-24-2024 Lymphocytes (Bld) [#/Vol]1.4 10*3/uL1.00-4.8[facility] Lymphocytes (Bld) [#/Vol]Lymphocytes [#/volume] in Blood by Automated count 1.00-4.8[facility] HospitalLymphocytes/100 WBC Auto (Bld)Ordered By: Bird Kowalski on 85-46-0997Nilxtwtiipy/100 WBC (Bld)11.4 %.[facility] HospitalLymphocytes/100 WBC (Bld)Lymphocytes/100 leukocytes in Blood by Automated count.[facility] Auto (RBC) [Entitic mass] Ordered By: Bird Kowalski on 60-07-2572CJT (RBC) [Entitic mass]36.3 pgHigh 27.5-35.2FSelect Medical TriHealth Rehabilitation Hospital (RBC) [Entitic mass]MCH [Entitic mass] by Automated xhoguExqk64.5-35.2FDetwiler Memorial HospitalMCHC Auto (RBC) [Mass/Vol]Ordered By: Bird Kowalski on 41-93-5192SGNU (RBC) [Mass/Vol]34.3 g/dL32.5-35.6FOhioHealth Van Wert HospitalHC (RBC) [Mass/Vol]MCHC [Mass/volume] by Automated count32.5-35.6FDetwiler Memorial HospitalMCV Auto (RBC) [Entitic vol]Ordered By: Bird Kowalski on 78-59-4576FNB (RBC) [Entitic vol]105.8 wOHwyl94.5-101[facility], BeachwoodV (RBC) [Entitic vol]MCV [Entitic volume] by Automated auwovRzip18.5-101[facility] HospitalMonocytes Auto (Bld) [#/Vol]Ordered By: Bird Kowalski on 01-24-2024 Monocytes (Bld) [#/Vol]0.7 10*3/uL0.0-0.8[facility] Monocytes (Bld) [#/Vol]Automated blood monocyte count0.0-0.8[facility] HospitalMonocytes/100 WBC Auto (Bld)Ordered By: Bird Kowalski on 01-24-2024 Monocytes/100 WBC (Bld)5.5 %.[facility] HospitalMonocytes/100 WBC (Bld)Automated monocyte %.[facility] HospitalNeutrophils Auto (Bld) [#/Vol]Ordered By: Bird Kowalski on 61-33-1725Nzfhwmgacvy (Bld) [#/Vol]10.4 10*3/uLHigh1.8-7.7FDetwiler Memorial HospitalNeutrophils (Bld) [#/Vol] Neutrophils [#/volume] in Blood by Automated countHigh1.8-7.7FDetwiler Memorial HospitalNeutrophils/100 WBC Auto (Bld)Ordered By: Bird Kowalski on 08-93-5094Ctatkqvpzfk/100 WBC (Bld)82.3 %.[facility] Neutrophils/100 WBC (Bld)Automated neutrophil %.[facility] HospitalNo Panel InformationOrdered By: Bird Kowalski on 07-46-6631Bxafdcyyt GFR (CKD-EPI)> 60.0 mL/MinAultman Alliance Community HospitalPharmacy Creatinine Clearance (ChemN/AFDetwiler Memorial HospitalNucleated erythrocytes [Presence] in Blood by Automated countOrdered By: Bird Kowalski on 01-24-2024 Nucleated RBC Auto Ql (Bld)0.1 /100{WBC}0-0.5FDetwiler Memorial Hospital Nucleated RBC Auto Ql (Bld)Nucleated erythrocytes [Presence] in Blood by Automated count0-0.5FDetwiler Memorial HospitalPlatelet mean volume Auto (Bld) [Entitic vol]Ordered By: Bird Kowalski on 52-70-1847Vuzuzhxc mean volume (Bld) [Entitic vol]10.2 fLHigh6.6-10.1FDetwiler Memorial HospitalPlatelet mean volume (Bld) [Entitic vol]Platelet mean volume [Entitic volume] in Blood by Automated countHigh6.6-10.1FDetwiler Memorial HospitalPlatelets Auto (Bld) [#/Vol]Ordered By: Bird Kowalski on 23-28-1667Jpjgnsbid (Bld) [#/Vol]155 10*3/uL 150-450[facility] HospitalPlatelets (Bld) [#/Vol]Platelets [#/volume] in Blood by Automated -878ZmsasuelnAultman Alliance Community Hospital Potassium [Moles/volume] in Serum or PlasmaOrdered By: Bird Kowalski on 86-41-5624Fnrkszrzx [Moles/Vol]4.3 mmol/L3.5-5.1FDetwiler Memorial HospitalPotassium [Moles/Vol]Potassium [Moles/volume] in Serum or Plasma3.5-5.1 [facility] HospitalRBC Auto (Bld) [#/Vol]Ordered By: Bird Kowalski on 80-33-7427IKQ (Bld) [#/Vol]4.40 10*6/uL3.90-5.60[facility] HospitalRBC (Bld) [#/Vol]Erythrocytes [#/volume] in Blood by Automated count 3.90-5.60City Hospitalerum or plasma anion gap determinationOrdered By: Bird Kowalski on 97-94-8280Mvycj gap [Moles/Vol]10.9 mmol/L6.0-15.0[facility] HospitalAnion gap [Moles/Vol]Serum or plasma anion gap determination6.0-15.0City Hospitalodium [Moles/volume] in Serum or PlasmaOrdered By: Bird Kowalski on 64-89-1410Jkfcvi [Moles/Vol]136 mmol/L162-847YrtecujwjCity Hospitalodium [Moles/Vol] Sodium [Moles/volume] in Serum or Cpoggb292-734KmtzyikgoAultman Alliance Community Hospital Urea nitrogen [Mass/volume] in Serum or PlasmaOrdered By: Bird Kowalski on 11-06-6688Lgey nitrogen [Mass/Vol]20 mg/dL7[facility] Urea nitrogen [Mass/Vol]Urea nitrogen [Mass/volume] in Serum or Plasma10-31 [facility] HospitalWBC Auto (Bld) [#/Vol]Ordered By: Bird Kowalski on 81-93-9358BNL (Bld) [#/Vol]12.6 10*3/uLHigh4.1-10.5FDetwiler Memorial HospitalWBC (Bld) [#/Vol]Leukocytes [#/volume] in Blood by Automated countHigh 4.1-10.5FDetwiler Memorial HospitalCNCOon 70-31-1049LRCWYucxmb TextNormal [facility] Memorial HospitalBasophils Auto (Bld) [#/Vol]on 41-33-5650Bgewltruj (Bld) [#/Vol]0.1 10 3/uL0.0-0.1FDetwiler Memorial HospitalBasophils/100 WBC Auto (Bld)on 64-27-0098Mzumcmhbm/100 WBC (Bld)0.7 %0.2-2.0[facility] HospitalCholesterol in LDL Calc [Mass/Vol]on 89-22-5889Ghhnjghwsss in LDL [Mass/Vol]73.0 mg/dLAultman Alliance Community HospitalComment on above:<100 mg/dl PDKOUKV957-348 mg/dl NEAR OR ABOVE OOTIWMS170-410 mg/dl BORDERLINE CPGA988-085 mg/dl HIGH>190 mg/dl VERY HIGHCholesterol in VLDL Calc [Mass/Vol]on 90-39-5596Feulmoipxse in VLDL [Mass/Vol]15.0 mg/dLAultman Alliance Community HospitalEosinophils/100 WBC Auto (Bld)on 29-66-9039Tpzckeeosqb/100 WBC (Bld)1.1 % 0.9-7.0[facility] HospitalErythrocyte distribution width Auto (RBC) [Ratio]on 76-98-9499Xwzzadjnoec distribution width (RBC) [Ratio]13.2 % 11.0-15.0[facility] HospitalEstimated glomerular filtration rate (GFR) non- Americanon 30-08-7524ODS/1.73 sq M.predicted among non-blacks MDRD (S/P/Bld) [Vol rate/Area]mL/min/{1.73_m2}>=60[facility] HospitalGlobulin Calc (S) [Mass/Vol]on 01-62-0234Lfudlero (S) [Mass/Vol]3.2 g/dL [facility] HospitalHematocrit Auto (Bld) [Volume fraction]on 28-07-2657Mlrrmaltpy (Bld) [Volume fraction]43.6 %42.0-54.0[facility] HospitalHemoglobin [Mass/volume] in Bloodon 03-39-8776Qegbdmxaqx (Bld) [Mass/Vol]15.2 g/dL14.0-18.0[facility] HospitalLaboratory - Chemistry and Chemistry - challengeon 84-57-9408Lzczcox [Mass/Vol]3.4 g/dL 3.4-5.0[facility] HospitalALP [Catalytic activity/Vol]53 U/L46-116 [facility] HospitalALT [Catalytic activity/Vol]48 U/L16-63 [facility] HospitalAST [Catalytic activity/Vol]19 U/L15-37 [facility] HospitalBilirubin [Mass/Vol]0.7 mg/dL0.2-1.0[facility] HospitalCalcium [Mass/Vol]8.6 mg/dL8.5-10.1FDetwiler Memorial HospitalChloride [Moles/Vol]103 mmol/X11-974RvcwrpkdhAultman Alliance Community HospitalCholesterol [Mass/Vol]141 mg/dL<=200[facility] Cholesterol in HDL [Mass/Vol]53 mg/yY23-66IniaqngxwAultman Alliance Community Hospital Comment on above:> or =60 mg/dl - LOW CARDIOVASCULAR RISK<40 mg/dl - HIGH CARDIOVASCULAR RISKCO2 [Moles/Vol]29.6 mmol/L21.0-32.0[facility] HospitalCreatinine [Mass/Vol]0.87 mg/dL0.70-1.30[facility] GFR/1.73 sq M.predicted MDRD (S/P/Bld) [Vol rate/Area]mL/min/{1.73_m2}>=60 [facility] HospitalGlucose [Mass/Vol]113 mg/aJVnqp59-243DxtfuxktiAultman Alliance Community HospitalPotassium [Moles/Vol]4.3 mmol/L3.5-5.1FDetwiler Memorial HospitalProtein [Mass/Vol]6.6 g/dL6.4-8.2FDetwiler Memorial Hospital Sodium [Moles/Vol]138 mmol/V468-131LsyjcnthqAultman Alliance Community HospitalTriglyceride [Mass/Vol]75 mg/dL<=150[facility] HospitalTSH Qn1.694 m[IU]/L 0.358-3.740[facility] HospitalUrea nitrogen [Mass/Vol]19.0 mg/dL High7.0-18.0[facility] HospitalUrea nitrogen/Creatinine [Mass ratio]21.8 mg/mgAultman Alliance Community HospitalLaboratory - Hematology and Cell countson 95-88-2704Obarittc granulocytes/100 WBC (Bld)1.3 %High0.0-0.5 [facility] HospitalLeukocytes [#/volume] corrected for nucleated erythrocytes in Blood by Automated counon 78-13-0704FME corrected for nucl RBC Auto (Bld) [#/Vol]11.4 10 3/uLHigh4.0-11.0[facility] Lymphocytes Auto (Bld) [#/Vol]on 36-93-3444Iubaajnvbpo (Bld) [#/Vol]2.8 10 3/uL 1.2-3.8[facility] HospitalLymphocytes/100 WBC Auto (Bld)on 27-34-3388Bfzsgjjzrdp/100 WBC (Bld)24.3 %20.5-60.0[facility], BeachwoodH Auto (RBC) [Entitic mass]on 54-54-5569SMM (RBC) [Entitic mass]36.5 pg High25.9-34.0[facility] HospitalMCHC Auto (RBC) [Mass/Vol]on 51-26-6594OLYY (RBC) [Mass/Vol]34.9 g/dL29.9-35.2FDetwiler Memorial HospitalMCV Auto (RBC) [Entitic vol]on 04-66-7630HBR (RBC) [Entitic vol]104.6 fL High80.0-94.0[facility] HospitalMonocytes Auto (Bld) [#/Vol]on 20-27-7772Roxqaamyn (Bld) [#/Vol]1.0 10 3/uLHigh0.3-0.8[facility] HospitalMonocytes/100 WBC Auto (Bld)on 11-47-3078Jcjkpclwf/100 WBC (Bld) 8.5 %1.7-12.0[facility] HospitalNeutrophils Auto (Bld) [#/Vol]on 84-98-5929Faevjvrobic (Bld) [#/Vol]7.3 10 3/uLHigh1.4-6.5FDetwiler Memorial HospitalNeutrophils/100 WBC Auto (Bld)on 45-91-4157Whluwiksunj/100 WBC (Bld)64.1 %43.0-75.0[facility] HospitalNo Panel Informationon 62-19-9302Nxhwadhxaee # (Auto)0.1 10 3/uL0.0-0.7FDetwiler Memorial HospitalImmature Granulocyte # (Auto)0.15 10 3/uLHigh0.00-0.03[facility] HospitalProstate Specific Antigen Screen0.48 ng/mL<=4.00[facility] Medical CenterPlatelet mean volume Auto (Bld) [Entitic vol]on 11-21-2023 Platelet mean volume (Bld) [Entitic vol]10.6 fL9.5-13.5FDetwiler Memorial HospitalPlatelets Auto (Bld) [#/Vol]on 38-17-5230Urtiyfuto (Bld) [#/Vol] 180 10 3/hS978-939NbomalojxAultman Alliance Community HospitalRBC Auto (Bld) [#/Vol]on 13-84-9480KSA (Bld) [#/Vol]4.17 10 6/uLLow4.70-6.10City Hospitalerum or plasma albumin/globulin mass ratioon 46-80-3419Gixlnde/Globulin [Mass ratio]1.1 {ratio}City Hospitalerum or plasma anion gap determinationon 30-87-8742Dkxjn gap [Moles/Vol]9.7 mmol/LFSelect Medical Cleveland Clinic Rehabilitation Hospital, Edwin Shawerum or plasma total cholesterol/high density lipoprotein (HDL) cholesterol mass orin 01-00-9136Dumrqhiskhv.total/Cholesterol in HDL [Mass ratio]2.7 {ratio}[facility] HospitalComment on above:3.3 - 4.4 LOW RISK4.4 - 7.1 AVERAGE RISK7.1 - 11.0 MODERATE RISK>11.0 HIGH RISKLaboratory - Hematology and Cell countson 47-02-3792PXF (Bld) [Velocity]2 mm/h0-15[facility] HospitalNo Panel Informationon 15-15-3265R-Reactive Protein, Quantitative0.8 mg/dL<0.9[facility] HospitalBasophils Auto (Bld) [#/Vol]Ordered By: Elliott Talley on 23-17-9915Bghnhvzwb (Bld) [#/Vol]0.0 10*3/uL0.0-0.2FDetwiler Memorial HospitalBasophils/100 WBC Auto (Bld) Ordered By: Elliott Talley on 92-97-3677Btfhwmvpy/100 WBC (Bld)0.5 %. [facility] HospitalEosinophils Auto (Bld) [#/Vol]Ordered By: Elliott Talley on 44-77-2453Uotpgworyut (Bld) [#/Vol]0.1 10*3/uL0.0-0.45 [facility] HospitalEosinophils/100 WBC Auto (Bld)Ordered By: Elliott Talley on 73-81-6332Ichnaecjdnv/100 WBC (Bld)0.8 %.[facility] HospitalErythrocyte distribution width Auto (RBC) [Ratio]Ordered By: Elliott Talley on 22-18-6793Icghtftriom distribution width (RBC) [Ratio]15.2 %High12.0-14.8[facility] HospitalHematocrit Auto (Bld) [Volume fraction]Ordered By: Elliott Talley on 47-40-2404Liwfparbwy (Bld) [Volume fraction]47.9 %38.8-50.0[facility] HospitalHemoglobin [Mass/volume] in BloodOrdered By: Elliott Talley on 01-41-1810Xcobpgahdt (Bld) [Mass/Vol]16.1 g/dL13.0-17.0[facility] HospitalLeukocytes [#/volume] corrected for nucleated erythrocytes in Blood by Automated coun Ordered By: Elliott Talley on 15-28-8176ABD corrected for nucl RBC Auto (Bld) [#/Vol]7.6 10*3/uL4.1-10.5FDetwiler Memorial HospitalLymphocytes Auto (Bld) [#/Vol]Ordered By: Elliott Talley on 92-88-2875Bnmqxefiyrv (Bld) [#/Vol]1.0 10*3/uL1.00-4.8[facility] HospitalLymphocytes/100 WBC Auto (Bld)Ordered By: Elliott Talley on 51-05-2190Ozxogmexizk/100 WBC (Bld) 13.5 %.[facility] Auto (RBC) [Entitic mass]Ordered By: Elliott Talley on 53-21-5484UWM (RBC) [Entitic mass]34.6 pg27.5-35.2 [facility] HospitalMCHC Auto (RBC) [Mass/Vol]Ordered By: Elliott Talley on 19-48-6902CWUD (RBC) [Mass/Vol]33.7 g/dL32.5-35.6FDetwiler Memorial HospitalMCV Auto (RBC) [Entitic vol]Ordered By: lEliott Talley on 49-14-0292QPE (RBC) [Entitic vol]102.8 pCGczd92.5-101[facility] HospitalMonocytes Auto (Bld) [#/Vol]Ordered By: Elliott Talley on 04-40-1638Sfeaaehvl (Bld) [#/Vol]0.5 10*3/uL0.0-0.8[facility] HospitalMonocytes/100 WBC Auto (Bld)Ordered By: Elliott Talley on 60-53-0853Kgjrzamkq/100 WBC (Bld)6.4 %.[facility] HospitalNeutrophils Auto (Bld) [#/Vol]Ordered By: Elliott Talley on 54-88-4931Fphodvtbczm (Bld) [#/Vol]6.0 10*3/uL1.8-7.7FDetwiler Memorial HospitalNeutrophils/100 WBC Auto (Bld)Ordered By: Elliott Talley on 71-49-8249Uwvcmutanqc/100 WBC (Bld)78.8 %.[facility] Nucleated erythrocytes [Presence] in Blood by Automated countOrdered By: Elliott Talley on 12-00-8520Hjntnwspk RBC Auto Ql (Bld)0.0 /100{WBC}0-0.5 [facility] HospitalPlatelet mean volume Auto (Bld) [Entitic vol] Ordered By: Elliott Talley on 13-65-0150Zxbcpqxb mean volume (Bld) [Entitic vol]9.1 fL6.6-10.1FDetwiler Memorial HospitalPlatelets Auto (Bld) [#/Vol] Ordered By: Elliott Talley on 48-67-0802Flleqqpks (Bld) [#/Vol]119 10*3/uL Bru102-230GhxyughioAultman Alliance Community HospitalRBC Auto (Bld) [#/Vol]Ordered By: Elliott Talley on 55-61-1865BUZ (Bld) [#/Vol]4.66 10*6/uL3.90-5.60[facility] HospitalWBC Auto (Bld) [#/Vol]Ordered By: Elliott Talley on 37-68-9396LDC (Bld) [#/Vol]7.6 10*3/uL4.1-10.5FDetwiler Memorial Hospital Activated partial thromboplastin time (aPTT) in platelet poor plasma by coagulation aOrdered By: Elliott Talley on 95-71-6427xORS Coag (PPP) [Time] 27.6 s25.1-36.5FDetwiler Memorial HospitalComment on above:A hematocrit value greater than 55% may lead to inaccurate results in coagulation testing. Patientshaving hematocrit values >55% require a special collection tube for coagulation studies. Please contact the laboratory at [phone] for redraw instructions.Alanine aminotransferase [Enzymatic activity/volume] in Serum or PlasmaOrdered By: Elliott Talley on 21-85-9181UVL [Catalytic activity/Vol] 33 U/L7-52[facility] HospitalAlbumin [Mass/volume] in Serum or Plasma by Bromocresol green (BCG) dye binding methoOrdered By: Elliott Talley on 37-86-0012Wvvvcic BCG dye [Mass/Vol]3.5 g/dL3.5-5.7FDetwiler Memorial HospitalAlkaline phosphatase [Enzymatic activity/volume] in Serum or PlasmaOrdered By: Elliott Talley on 42-76-4168BGV [Catalytic activity/Vol]39 U/S76-410DnbbfvqkrAultman Alliance Community HospitalAspartate aminotransferase [Enzymatic activity/volume] in Serum or PlasmaOrdered By: Elliott Talley on 30-62-0017MHJ [Catalytic activity/Vol]19 U/L13-39 [facility] HospitalBilirubin.total [Mass/volume] in Serum or PlasmaOrdered By: Elliott Talley on 86-84-8878Rlwfbdbhc [Mass/Vol]1.3 mg/dL High0.3-1.0[facility] HospitalComment on above:Samples from patients who have taken Naproxen have shown spurious elevation in Total Bilirubin levels. A metabolite of Naproxen, O-desmethylnaproxen, has been shown to interfere with the Jayro-Henrik method for measuring Total Bilirubin. Calcium [Mass/volume] in Serum or PlasmaOrdered By: Elliott Talley on 23-02-0099Svagwde [Mass/Vol]8.6 mg/dL8.6-10.3FDetwiler Memorial Hospital Carbon dioxide, total [Moles/volume] in Serum or PlasmaOrdered By: Elliott Talley on 97-69-2592XQ1 [Moles/Vol]29.2 mmol/L21.0-31.0[facility] HospitalChloride [Moles/volume] in Serum or PlasmaOrdered By: Elliott Gutierreznh on 94-96-2130Vntgsiti [Moles/Vol]104 mmol/S21-593NypuhwqqtAultman Alliance Community HospitalCreatinine [Mass/volume] in Serum or PlasmaOrdered By: Elliott Deanhospital [facility] on 44-26-7768Amatdcefwp [Mass/Vol]1.05 mg/dL0.70-1.30[facility] HospitalGlobulin Calc (S) [Mass/Vol]Ordered By: Elliott Talley on 94-17-8159Mfwrvheu (S) [Mass/Vol]2.1 g/dLAultman Alliance Community HospitalGlucose [Mass/volume] in Serum or PlasmaOrdered By: Elliott Deanhospital [facility] on 68-24-8637Tmawkkv [Mass/Vol]101 mg/wNFkhd58-536MqdcevpkrAultman Alliance Community HospitalComment on above:ADA recommended reference rangeRandom Glucose Reference Range is dependent on time and content of last meal. Glucose of more than 200 mg/dL in a nonstressed, ambulatory subject supports the diagnosisof Diabetes Mellitus.INR in Platelet poor plasma by Coagulation assayOrdered By: Elliott Talley on 89-06-1624YST Coag (PPP) [Relative time]1.1 {INR}[facility] HospitalComment on above:INR Therapeutic Range A) Pre- [...] or Plasma Ordered By: Elliott Talley on 07-85-7612Uvjtjnuwu [Mass/Vol]2.0 mg/dL 1.9-2.7FDetwiler Memorial HospitalNo Panel InformationOrdered By: Elliott Talley on 98-22-3338Zndhwvpin GFR (CKD-EPI)> 60.0 mL/MinAultman Alliance Community HospitalPharmacy Creatinine Clearance (Chem90.65[facility] HospitalPotassium [Moles/volume] in Serum or PlasmaOrdered By: Elliott Deanhospital [facility] on 53-29-0291Lhsrjtjfl [Moles/Vol]4.4 mmol/L3.5-5.1FDetwiler Memorial HospitalProtein [Mass/volume] in Serum or PlasmaOrdered By: Elliott Talley on 30-05-5266Wnazezi [Mass/Vol]5.6 g/dLLow6.4-8.9[facility] HospitalProthrombin time (PT)Ordered By: Elliott Talley on 27-27-1700UR Coag (PPP) [Time]13.1 sHigh9.0-12.9[facility] HospitalComment on above:A hematocrit value greater than 55% may lead to inaccurate results in coagulation testing. Patientshaving hematocrit values >55% require a special collection tube for coagulation studies. Please contact the laboratory at [phone] for redraw instructions.Random cortisol measurement Ordered By: Elliott Talley on 65-75-1735Sisumzru [Mass/Vol]9.4 ug/dL [facility] HospitalComment on above:[facility] Laboratory check scaler and method:BERTIN E4 HealthEL DXI, POLYCLONAL ANTIBODY CORTISOL ASSAY. Reference range: AM 6 - 24 ug/dl PM <10 ug/dlSerum or plasma albumin/globulin mass ratioOrdered By: Elliott Talley on 14-20-6828Abflkib/Globulin [Mass ratio]1.7 {ratio}City Hospitalerum or plasma anion gap determinationOrdered By: Elliott Talley on 03-02-2980Msnqm gap [Moles/Vol] 9.2 mmol/L6.0-15.0City Hospitalodium [Moles/volume] in Serum or PlasmaOrdered By: Elliott Talley on 14-32-7636Szekbp [Moles/Vol] 138 mmol/E292-015PjohltzfuAultman Alliance Community HospitalUrea nitrogen [Mass/volume] in Serum or PlasmaOrdered By: Elliott Talley on 02-32-0761Bdwc nitrogen [Mass/Vol]15 mg/dL7-25[facility] HospitalActivated partial thromboplastin time (aPTT) in platelet poor plasma by coagulation aOrdered By: Hermes Velez on 13-40-9970jDVL Coag (PPP) [Time]25.5 s25.1-36.5FDetwiler Memorial HospitalComment on above:A hematocrit value greater than 55% may lead to inaccurate results in coagulation testing. Patientshaving hematocrit values >55% require a special collection tube for coagulation studies. Please contact the laboratory at [phone] for redraw instructions.Alanine aminotransferase [Enzymatic activity/volume] in Serum or PlasmaOrdered By: Hermes Velez on 69-86-3382PAE [Catalytic activity/Vol]44 U/L7-52[facility] HospitalAlbumin [Mass/volume] in Serum or Plasma by Bromocresol green (BCG) dye binding methoOrdered By: Hermes Velez on 47-22-3678Kxosyvt BCG dye [Mass/Vol]4.2 g/dL3.5-5.7FDetwiler Memorial HospitalAlkaline phosphatase [Enzymatic activity/volume] in Serum or PlasmaOrdered By: Hermes Velez on 07-65-1114JNK [Catalytic activity/Vol]46 U/J97-047IvvshjuknAultman Alliance Community HospitalAspartate aminotransferase [Enzymatic activity/volume] in Serum or PlasmaOrdered By: Hermes Velez on 14-00-3027NZY [Catalytic activity/Vol]27 U/L65-37MtnfgbogiAultman Alliance Community HospitalBacterial blood cultureOrdered By: Hermes Velez on 08-30-2023 Bacteria identified Cx Nom (Bld)NO GROWTH 5 DAYSAultman Alliance Community HospitalBasophils Auto (Bld) [#/Vol]Ordered By: Hermes Velez on 98-56-4538Fykzfhyqu (Bld) [#/Vol]0.1 10*3/uL0.0-0.2FDetwiler Memorial HospitalBasophils/100 WBC Auto (Bld)Ordered By: Hermes Velez on 78-23-8077Sntqzczdv/100 WBC (Bld)0.8 %. [facility] HospitalBilirubin Test strip Ql (U)Ordered By: Hermes Velez on 25-14-6541Oskmgisqs Ql (U)NegativeNegativeAultman Alliance Community HospitalBilirubin.direct [Mass/volume] in Serum or PlasmaOrdered By: Hermes Velez on 31-51-0271Hapjiqejw.direct [Mass/Vol]0.20 mg/dLHigh0.03-0.18FDetwiler Memorial HospitalBilirubin.total [Mass/volume] in Serum or PlasmaOrdered By: Hermes Velez on 99-90-9426Zzywkcilq [Mass/Vol]0.9 mg/dL0.3-1.0[facility] HospitalCOVID CepheidOrdered By: Erin Suresh on 08-30-2023 SARS-CoV-2 (COVID-19) Ab IA QlNegativeNegativeAultman Alliance Community Hospital Comment on above:This is a duplicate CephePenBlade Xpert Xpress CoV-2/Flu/RSV Plus RNA by RT-PCR result to be used for statistical tracking purpose only.SARS-CoV-2 (COVID-19) RNA ROSIE+probe Ql (Unsp spec)[facility] HospitalCOVID- Detected/Not DetectedOrdered By: Elliott Talley on 41-96-3305AZPK-CoV-2 (COVID-19) RNA ROSIE+non-probe Ql (Nph)Not detectedNot DetecteFDetwiler Memorial HospitalComment on above:This is a duplicate RP2.1 COVID (PCR) result to be used for statistical tracking purpose only.Calcium [Mass/volume] in Serum or PlasmaOrdered By: Hermes Velez on 30-92-7024Gwpwtyy [Mass/Vol]9.3 mg/dL8.6-10.3 [facility] HospitalCarbon dioxide, total [Moles/volume] in Serum or PlasmaOrdered By: Hermes Velez on 45-15-0465BW2 [Moles/Vol]25.1 mmol/L 21.0-31.0[facility] HospitalChloride [Moles/volume] in Serum or PlasmaOrdered By: Hermes Velez on 79-91-9432Phjpyveq [Moles/Vol]100 mmol/L98-107 [facility] HospitalColor Auto (U)Ordered By: Hermes Velez on 63-70-9062Mlgid (U)YellowYellowAultman Alliance Community HospitalCreatine kinase [Enzymatic activity/volume] in Serum or PlasmaOrdered By: Hermes Velez on 73-97-0230QA [Catalytic activity/Vol]37 U/D28-119CxfcmanywAultman Alliance Community HospitalCreatinine [Mass/volume] in Serum or PlasmaOrdered By: Hermes Velez on 03-24-1958Hthfusagnn [Mass/Vol]1.11 mg/dL0.70-1.30[facility] HospitalEosinophils Auto (Bld) [#/Vol]Ordered By: Hermes Velez on 08-30-2023 Eosinophils (Bld) [#/Vol]0.0 10*3/uL0.0-0.45[facility] Eosinophils/100 WBC Auto (Bld)Ordered By: Hermes Velez on 08-30-2023 Eosinophils/100 WBC (Bld)0.1 %.[facility] HospitalErythrocyte distribution width Auto (RBC) [Ratio]Ordered By: Hermes Velez on 08-30-2023 Erythrocyte distribution width (RBC) [Ratio]15.1 %12.0-14.8[facility] HospitalGlobulin Calc (S) [Mass/Vol]Ordered By: Hermes Velez on 08-30-2023 Globulin (S) [Mass/Vol]2.8 g/dLAultman Alliance Community HospitalGlucose [Mass/volume] in Serum or PlasmaOrdered By: Hermes Velez on 82-10-6967Kmqickq [Mass/Vol]123 mg/lE63-960QtgxjllkyAultman Alliance Community HospitalComment on above:ADA recommended reference rangeRandom Glucose Reference Range is dependent on time and content of last meal. Glucose of more than 200 mg/dL in a nonstressed, ambulatory subject supports the diagnosisof Diabetes Mellitus.Hematocrit Auto (Bld) [Volume fraction]Ordered By: Hermes Velez on 85-13-3932Jetlicdedt (Bld) [Volume fraction]48.1 %38.8-50.0[facility] HospitalHemoglobin [Mass/volume] in BloodOrdered By: Hermes Velez on 41-38-5382Czvmlanphc (Bld) [Mass/Vol]16.2 g/dL13.0-17.0[facility] HospitalINR in Platelet poor plasma by Coagulation assayOrdered By: Hermes Velez on 28-98-2050OUH Coag (PPP) [Relative time]1.1 {INR}[facility] HospitalComment on above: INR Therapeutic Range A) [...] By: Hermes Velez on 08-30-2023 Ketones (U) [Mass/Vol]NegativeNegativeAultman Alliance Community HospitalLactate [Moles/volume] in Serum or PlasmaOrdered By: Tony Comer on 08-30-2023 Lactate [Moles/Vol]1.9 mmol/L0.5-2.2FDetwiler Memorial HospitalLeukocytes [#/volume] corrected for nucleated erythrocytes in Blood by Automated coun Ordered By: Hermes Velez on 59-92-0992KOP corrected for nucl RBC Auto (Bld) [#/Vol]14.5 10*3/uL4.1-10.5FDetwiler Memorial HospitalLipase [Enzymatic activity/volume] in Serum or PlasmaOrdered By: Hermes Velez on 47-42-1657Tisnbh [Catalytic activity/Vol]13.0 U/L11.0-82.0[facility] Lymphocytes Auto (Bld) [#/Vol]Ordered By: Hermes Velez on 50-16-8091Eludbmeodhe (Bld) [#/Vol]0.6 10*3/uL1.00-4.8[facility] HospitalLymphocytes/100 WBC Auto (Bld)Ordered By: Hermes Velez on 43-55-1521Hqlkuuupzet/100 WBC (Bld)4.4 %.[facility] BeachwoodH Auto (RBC) [Entitic mass]Ordered By: Hermes Velez on 93-19-1604BBT (RBC) [Entitic mass]34.5 pg27.5-35.2FDetwiler Memorial HospitalMCHC Auto (RBC) [Mass/Vol]Ordered By: Hermes Velez on 28-82-3517SONN (RBC) [Mass/Vol]33.7 g/dL32.5-35.6FDetwiler Memorial HospitalMCV Auto (RBC) [Entitic vol]Ordered By: Hermes Velez on 16-78-5334ZSH (RBC) [Entitic vol]102.3 fL83.5-101[facility] HospitalMonocyte distribution width [Entitic volume] in Blood by AutomatedOrdered By: Hermes Velez on 15-30-0085Ufloenaj distribution width Auto (Bld) [Entitic vol]21.88 %High 0.00-20.00[facility] HospitalComment on above:For adults in ED, MDW > 20.0 may be associated with a higher risk of sepsis during the first 12 h rs of hospital admissionMonocytes Auto (Bld) [#/Vol]Ordered By: Hermes Velez on 05-80-4491Takruhorj (Bld) [#/Vol]0.3 10*3/uL0.0-0.8[facility] HospitalMonocytes/100 WBC Auto (Bld)Ordered By: Hermes Velez on 08-30-2023 Monocytes/100 WBC (Bld)2.3 %.[facility] HospitalNatriuretic peptide B [Mass/Vol]Ordered By: Hermes Velez on 50-85-1740Yrjtqwclyqb peptide B (Bld) [Mass/Vol]401.0 pg/mLHigh5-100[facility] HospitalNeutrophils Auto (Bld) [#/Vol]Ordered By: Hermes Velez on 68-40-7593Xgrbitlzsdr (Bld) [#/Vol]13.4 10*3/uL1.8-7.7FDetwiler Memorial HospitalNeutrophils/100 WBC Auto (Bld)Ordered By: Hermes Velez on 96-81-9228Uruiyzudntm/100 WBC (Bld)92.4 %. [facility] HospitalNitrite Test strip Ql (U)Ordered By: Hermes Velez on 40-17-0090Uapyoyg Ql (U)NegativeNegativeAultman Alliance Community HospitalNo Panel InformationOrdered By: Hermes Velez on 61-29-1143Pfvvrqrvg ID (NA Multiplex Assay)Presumptive Coag Neg. [facility]apTrumbull [facility] Bacterial ID (NA Multiplex Assay)Staphylococcus sp coag negAbnoSelect Medical Cleveland Clinic Rehabilitation Hospital, AvonEstimated GFR (CKD-EPI)> 60.0 mL/MinAultman Alliance Community HospitalPharmacy Creatinine Clearance (Chem82.75[facility] HospitalNucleated erythrocytes [Presence] in Blood by Automated countOrdered By: Hermes Velez on 65-62-1812Cgliamovc RBC Auto Ql (Bld)0.0 /100{WBC}0-0.5FDetwiler Memorial HospitalPlatelet mean volume Auto (Bld) [Entitic vol]Ordered By: Hermes Velez on 12-22-9596Dyoggjqx mean volume (Bld) [Entitic vol]8.7 fL6.6-10.1 [facility] HospitalPlatelets Auto (Bld) [#/Vol]Ordered By: Hermes Velez on 06-98-3521Tguntjtwo (Bld) [#/Vol]147 10*3/qS776-331WgkytnbbxAultman Alliance Community HospitalPotassium [Moles/volume] in Serum or PlasmaOrdered By: Hermes Velez on 34-50-6350Alyrrpstk [Moles/Vol]3.3 mmol/L3.5-5.1Fire[facility] Medical CenterProtein Auto test strip (U) [Mass/Vol]Ordered By: Hermes Velez on 44-39-8820Otplsig (U) [Mass/Vol]NegativeNegativeAultman Alliance Community HospitalProtein [Mass/volume] in Serum or PlasmaOrdered By: Hermes Velez on 35-44-4410Chnhual [Mass/Vol]7.0 g/dL6.4-8.9[facility] Prothrombin time (PT)Ordered By: Hermes Velez on 87-63-1440RU Coag (PPP) [Time] 12.8 s9.0-12.9[facility] HospitalComment on above:A hematocrit value greater than 55% may lead to inaccurate results in coagulation testing. Patientshaving hematocrit values >55% require a special collection tube for coagulation studies. Please contact the laboratory at [phone] for redraw instructions.RBC Auto (Bld) [#/Vol]Ordered By: Hermes Velez on 87-26-2841UYE (Bld) [#/Vol]4.70 10*6/uL3.90-5.60[facility] HospitalRespiratory pathogens DNA and RNA panel - Nasopharynx by ROSIE with non-probe detectionOrdered By: Elliott Talley on 10-45-0257Ujfnidyvglk pathogens DNA and RNA panel ROSIE+non-probe (Nph)City Hospitalerum or plasma albumin/globulin mass ratioOrdered By: Hermes Velez on 05-49-6730Ifzqwyq/Globulin [Mass ratio]1.5 {ratio}City Hospitalerum or plasma anion gap determinationOrdered By: Hermes Velez on 93-35-6495Llwkt gap [Moles/Vol]14.2 mmol/L6.0-15.0City Hospitalerum or plasma non- glucuronidated bilirubin measurement (mass/volume)Ordered By: Hermes Velez on 90-86-8272Iojqsdjxl.indirect [Mass/Vol]0.7 mg/dLCity Hospitalodium [Moles/volume] in Serum or PlasmaOrdered By: Hermes Velez on 44-96-3629Bfpxwm [Moles/Vol]136 mmol/X572-672UxrupqsspAultman Alliance Community Hospital Specific gravity Auto test strip (U) [Rel density]Ordered By: Hermes Velez on 42-86-1543Lwnlzfvh gravity (U) [Rel density]1.0161.001-1.030[facility] HospitalTroponin I.cardiac [Mass/volume] in Serum or Plasma by Detection limit <= 0.01 ng/Ordered By: Erin Suresh on 07-11-3016Xcffwnnb I.cardiac DL <= 0.01 ng/mL [Mass/Vol]16.9 pg/mL0.0-20.0[facility] HospitalUrea nitrogen [Mass/volume] in Serum or PlasmaOrdered By: Hermes Velez on 08-30-2023 Urea nitrogen [Mass/Vol]21 mg/dL7-25[facility] HospitalUrine clarity by refractometry automatedOrdered By: Hermes Velez on 86-37-1286Khqloyd Refractometry automated (U)ClearCleGlenbeigh HospitalUrine glucose measurement by automated test strip (mass/volume)Ordered By: Hermes Velez on 92-19-5904Rocwedu Auto test strip (U) [Mass/Vol]Normal mg/dLNoSelect Medical Cleveland Clinic Rehabilitation Hospital, AvonUrine hemoglobin detection by automated test stripOrdered By: Hermes Velez on 07-55-6531Vkcixkfybr Auto test strip Ql (U)NegativeNegative [facility] HospitalUrine leukocyte esterase detection by automated test stripOrdered By: Hermes Velez on 54-27-6333Ahaxdwuml esterase Auto test strip Ql (U)NegativeNegativeAultman Alliance Community HospitalUrobilinogen Auto test strip (U) [Mass/Vol]Ordered By: Hermes Velez on 85-47-4860Krceryhhtjzm (U) [Mass/Vol]Normal mg/dLNoSelect Medical Cleveland Clinic Rehabilitation Hospital, AvonWBC Auto (Bld) [#/Vol]Ordered By: Hermes Velez on 52-60-7505YFG (Bld) [#/Vol]14.5 10*3/uL 4.1-10.5FDetwiler Memorial HospitalpH Auto test strip (U)Ordered By: Hermes Velez on 48-35-5881nN (U)5.5 [pH]5.0-9.0[facility] HospitalECG [address] 81-78-4712GcomvfuftkWayne Hospital Work Phone: Sinus with PVC.sCPSalem Regional Medical Center Work Phone: Carbon dioxide, total [Moles/volume] in Serum or PlasmaOrdered By: Antonio Steele on 96-73-2256QK8 [Moles/Vol]26.4 mmol/L 21.0-31.0[facility] HospitalChloride [Moles/volume] in Serum or PlasmaOrdered By: Antonio Steele on 94-93-0792Xqkseiyb [Moles/Vol]102 mmol/L 98-107[facility] HospitalPotassium [Moles/volume] in Serum or PlasmaOrdered By: Antonio Steele on 72-74-4430Drslzugwu [Moles/Vol]4.1 mmol/L3.5-5.1FSelect Medical Cleveland Clinic Rehabilitation Hospital, Edwin Shawerum or plasma anion gap determinationOrdered By: Antonio Steele on 07-94-4370Vhohz gap [Moles/Vol] 13.7 mmol/L6.0-15.0City Hospitalodium [Moles/volume] in Serum or PlasmaOrdered By: Antonio Steele on 73-15-1131Fhjwcw [Moles/Vol]138 mmol/H900-968AeuiaephuAultman Alliance Community HospitalECG [address] 78-39-9258Valyry fibrillation with controlled rateCPSalem Regional Medical Center Work Phone: CT biopsyon 67-63-9640TL biopsy5.3 U/L1.5-8.1FDetwiler Memorial HospitalComment on above:This test was developed and its performance characteristics determined by [facility]'s [facility] Medicine [place] ([facility]). It has not been cleared or approved by the FDA. [facility] is regulated under CLIA as qualified to perform high-complexity testing. Thistest is used for clinical purposes. It should not be regarded as investigational or for research.Laboratory - Chemistry and Chemistry - challengeon [id number] [Catalytic activity/Vol]52 U/L51-298 [facility] HospitalCobalamin (Vitamin B12) [Mass/Vol]685 pg/mL 232-1245[facility] HospitalUrate [Mass/Vol]7.2 mg/dL4.0-8.1 [facility] HospitalLaboratory - Hematology and Cell countson 70-14-0889RYZ (Bld) [Velocity]15 mm/h0-15[facility] HospitalNo Panel Informationon 14-95-6784V-Reactive Protein, Quantitative0.8 mg/dL<0.9 City Hospitalerum or plasma calcidiol measurement (mass/volume)on 391392-rzcxfzibirlvvz D3 [Mass/Vol]21.4 ng/mL31.0-80.0 [facility] HospitalComment on above:Classification of 25 [place] Vitamin D status: Deficiency/Insufficiency: < or = 30 ng/ml.Sufficiency/Optimal Levels: 31-80 ng/mLToxicity: > 100 ng/mL. Test performed by chemiluminescent immunoassay.BD DXA - AXIAL SKELETONon [id number] DXA - AXIAL SKELETON* * *Final Report* [...] years, Gender: Male SCANNER INFORMATION: DXA Model: [place]TagCity Date Scanned: 06/28/2023 12:56 PM CLINICAL HISTORY: [...] had a previous bone density in the [facility] or the previous bone density was performed on a different DXA machine (new, updated model or different location) within the [facility]. VERTEBRAL FRACTURE ASSESSMENT Not performed. TRABECULAR [...] MORE INFORMATION ABOUT DIAGNOSIS AND TREATMENT: [facility] for Osteoporosis and Metabolic Bone Disease:? www.ccf.org/arthritis/osteo National Osteoporosis Foundation:? www.nof.org International Society of Clinical Densitometry www.iscd.org Gas Turbine Mechanic: RAQUEL Transcribe Date/Time: Jun 28 2023 1:37P Dictated by : KEREN BRAVO DO This examination was interpreted and the report reviewed and electronically signed by: KEREN BRAVO DO on Jun 28 2023 1:47PM EST [id number] Valley Health [facility] DXA - FOREARM SKELETONon [id number] DXA - FOREARM SKELETON* * *Final Report* [...] years, Gender: Male SCANNER INFORMATION: DXA Model: TagTagCity Date Scanned: 06/28/2023 12:56 PM CLINICAL HISTORY: [...] had a previous bone density in the [facility] or the previous bone density was performed on a different DXA machine (new, updated model or different location) within the [facility]. VERTEBRAL FRACTURE ASSESSMENT Not performed. TRABECULAR [...] MORE INFORMATION ABOUT DIAGNOSIS AND TREATMENT: [facility] Osteoporosis and Metabolic Bone Disease:? www.ccf.org/arthritis/osteo National Osteoporosis Foundation:? www.nof.org International Society of Clinical Densitometry www.iscd.org Gas Turbine Mechanic: RAQUEL Transcribe Date/Time: Jun 28 2023 1:37P Dictated by : KEREN BRAVO DO This examination was interpreted and the report reviewed and electronically signed by: KEREN BRAVO DO on Jun 28 2023 1:47PM EST [id number] Health System Selby General HospitalDXA Radius and Ulna [Mass/Area] Bone densityon 61-21-2346Utczvzstk ClinicDXA Skeletal system.axial Views for bone densityon 86-95-4479Fkgugrgis ClinicBASIC METABOLIC PANLon 80-23-9747Lomgo gap [Moles/Vol]10 mmol/LNormal5-15Premier Health Miami Valley HospitalComment on above: Performed By: #### CBCA, BMP, 40039-8 #### [facility] ([id number]) [address], [address] [place] [address]Kimkbid [Mass/Vol]9.3 mg/dLNormal8.5-10.5PUniversity Hospitals St. John Medical CenterComment on above:Performed By: #### RAIMUNDO FULLER, 30973-8 #### [facility] ([id number]) [address], [address] [place] [address]Wnrygnbt [Moles/Vol]102 mmol/LAurgrs35-681PirTnsgcqTexoma Medical CenterComment on above:Performed By: #### RAIMUNDO FULLER, #### [facility] ([id number]) [address], [address] [place] [address]GW6 [Moles/Vol]25 mmol/HZsurwu32-62YekFxwemtUniversity Hospitals St. John Medical Center Comment on above:Performed By: #### RAIMUNDO FULLER, #### [facility] ([id number]) [address], [address] [place] [address]Ifjnyhyonf [Mass/Vol]0.95 mg/dLNormal0.60-1.30ProTexoma Medical CenterComment on above:Result Comment: METHOD TRACEABLE TO IDMS STANDARD Performed By: #### RAIMUNDO FULLER, 00972-1 #### [facility] ([id number]) [address], [address] [place] [address]HKS/1.73 sq M.predicted among non-blacks MDRD (S/P/Bld) [Vol rate/Area]90 mL/min/{1.73_m2}Normal>59ProTexoma Medical CenterComment on above:Result Comment: Reported eGFR is based on the CKD-EPI 2020 equation that does not use a race coefficient.Performed By: #### RAIMUNDO FULLER, 81996-7 #### [facility] ([id number]) [address], [address] [place] [address]Huhxwza [Mass/Vol]117 mg/eEAtly50-62ThwKpiustTexoma Medical Center Comment on above:Performed By: #### RAIMUNDO FULLER, #### [facility] ([id number]) [address], [address] [place] [address]Tlteyhrkq [Moles/Vol]3.9 mmol/LNormal3.5-5.0ProTexoma Medical CenterComment on above:Performed By: #### RAIMUNDO FULLER, #### [facility] ([id number]) [address], [address] [place], [place] [address]Ovhfmc [Moles/Vol]137 mmol/HRysqgj671-482RmnGhqpar [facility]remont HospitalComment on above:Performed By: #### RAIMUNDO FULLER, #### [facility] ([id number]) [address], [address] [place] [address]Jsjh nitrogen [Mass/Vol]20 mg/dLNormal5-27ProTexoma Medical CenterComment on above:Performed By: #### RAIMUNDO FULLER, #### [facility] ([id number]) [address], [address] [place], [place] [address]HTN AND AUTO DIFFon 02-79-3324JDVYHYWC BASOPHIL0.1 X10E9/LNormal 0.0-0.2PUniversity Hospitals St. John Medical CenterComment on above:Performed By: #### RAIMUNDO FULLER, #### [facility] ([id number]) [address], [address] [place] [address]NCCJSUDJ NEUTROPHIL5.9 X10E9/LNormal1.5-6.6ProTexoma Medical CenterComment on above:Performed By: #### RAIMUNDO FULLER, #### [facility] ([id number]) [address], [address] [place] [address]Wdtckonqb/100 WBC (Bld)0.6 %NormalPremier Health Miami Valley Hospital Comment on above:Performed By: #### CBCAtul BMP, #### [facility] ([id number]) [address], [address] [place], [place] [address]Nroutkcjejc (Bld) [#/Vol]0.1 10*3/uLNormal0.0-0.4ProTexoma Medical CenterComment on above:Performed By: #### CBCA, BMP, #### [facility] ([id number]) [address], [address] [place], [place] [address]Zpeezchtfxq/100 WBC (Bld)1.0 %[facility] Comment on above:Performed By: #### CBCRAIMUNDO Pollard, #### [facility] ([id number]) [address], [address] [place], [place] [address]Chbwgegbemd distribution width (RBC) [Ratio]14.4 %Normal 11.5-15.0Prem[facility] HospitalComment on above:Performed By: #### CBCAtul, RAIMUNDO, #### [facility] ([id number]) [address], [address] [place], [place] [address]Rbtnaemoea (Bld) [Volume fraction]46.6 %Gxyswd75-19GesOpctybTexoma Medical CenterComment on above:Performed By: #### CBCA, BMP, #### [facility] ([id number]) [address], [address] [place], [place] [address]Ydmycxnnoj (Bld) [Mass/Vol]15.6 g/aPHtvalz81.0-17.0Prem[facility] HospitalComment on above:Performed By: #### CBCA, BMP, #### [facility] ([id number]) [address], [address] [place], [place] [address]Wznsggryovm (Bld) [#/Vol]2.2 10*3/uLNormal1.0-3.5PUniversity Hospitals St. John Medical CenterComment on above:Performed By: #### RAIMUNDO FULLER, #### [facility] ([id number]) [address], [address] [place], [place] [address]Hajcevryedr/100 WBC (Bld)25.1 %NormalProTexoma Medical Center Comment on above:Performed By: #### RAIMUNDO FULLER, #### [facility] ([id number]) [address], [address] [place], [place] [address]DCS (RBC) [Entitic mass]33.5 ztMdylfv98-88IajZbxreoPremier Health Miami Valley HospitalComment on above:Performed By: #### RAIMUNDO FULLER, #### [facility] ([id number]) [address], [address] [place], [place] [address]TWXJ (RBC) [Mass/Vol]33.4 g/jIFwvplc19-24ZphGdsuyxTexoma Medical CenterComment on above:Performed By: #### RAIMUNDO FULLER, #### [facility] ([id number]) [address], [address] [place], [place] [address]LQJ (RBC) [Entitic vol]100 vMFnobyx86-826PniYwsdmt [facility]remont HospitalComment on above:Performed By: #### CBCRAIMUNDO Pollard, #### [facility] ([id number]) [address], [address] [place], [place] [address]Laqhatelm (Bld) [#/Vol]0.7 10*3/uLNormal0-0.9Prem[facility] HospitalComment on above:Performed By: #### RAIMUNDO FULLRE, #### [facility] ([id number]) [address], [address] [place], [place] [address]Gbseexlpw/100 WBC (Bld)7.5 %NormalPremier Health Miami Valley Hospital Comment on above:Performed By: #### RAIMUNDO FULLER, #### [facility] ([id number]) [address], [address] [place], [place] [address]Iwybvpbdgnv/100 WBC (Bld)65.8 %NormalPremier Health Miami Valley Hospital Comment on above:Performed By: #### RAIMUNDO FULLER, #### [facility] ([id number]) [address], [address] [place], [place] [address]Endwaadv mean volume (Bld) [Entitic vol]9.3 fLNormal7-12 [facility] HospitalComment on above:Performed By: #### RAIMUNDO FULLER, #### [facility] ([id number]) [address], [address] [place], [place] [address]Gjrlwkxpa (Bld) [#/Vol]216 10*3/dYOckima955-936LpyYevdlj [facility] HospitalComment on above:Performed By: #### RAIMUNDO FULLER, #### [facility] ([id number]) [address], [address] [place], [place] [address]MHT COUNT4.65 X10E12/LNormal4.10-5.70[facility] Comment on above:Performed By: #### RAIMUNDO FULLER, #### [facility] ([id number]) [address], [address] [place] [address]KII (Bld) [#/Vol]8.9 10*3/uLNormal4.0-11.0Prem[facility] HospitalComment on above:Performed By: #### RAIMUNDO FULLER, #### [facility] ([id number]) [address], [address] [place], [place] [address]BTFQDEKPSge 53-08-6976Ncukehpnk [Mass/Vol]1.5 mg/dLLow1.8-2.6 ProMbaptist medical center southa [facility] Healthcare CenterComment on above:Performed By: #### CMP, PINR, 45845- 9, 53267-1, CBCA, 37289-1, 19465-9 #### [facility] ([id number]) [address] [place] [address], [place], [place] [address]VEFK EKGon 36-21-0209VryLtfxzcPremier Health Miami Valley Hospital NorthBasophils Auto (Bld) [#/Vol]Ordered By: Melinda Verduzco on 61-40-7431Wkwxbaank (Bld) [#/Vol] 0.1 10*3/uL0.0-0.2FDetwiler Memorial HospitalBasophils/100 WBC Auto (Bld) Ordered By: Melinda Verduzco on 78-65-4684Lkiomckia/100 WBC (Bld)0.6 %.[facility] HospitalC reactive protein [Mass/volume] in Serum or Plasma Ordered By: Melinda Verduzco on 04-42-2895WHT [Mass/Vol]0.5 mg/dL0.0-0.5 [facility] HospitalEosinophils Auto (Bld) [#/Vol]Ordered By: Melinda Verduzco on 42-67-7879Blwerjutubt (Bld) [#/Vol]0.1 10*3/uL0.0-0.45 [facility] HospitalEosinophils/100 WBC Auto (Bld)Ordered By: Melinda Verduzco on 24-82-4791Wsnvqjxruwn/100 WBC (Bld)0.4 %.[facility] HospitalErythrocyte distribution width Auto (RBC) [Ratio]Ordered By: Melinda Verduzco on 52-71-9753Eltkpmvtexc distribution width (RBC) [Ratio]14.5 % 12.0-14.8[facility] HospitalErythrocyte sedimentation rate by Photometric methodOrdered By: Melinda Verduzco on 80-93-9054NTN Photometric method (Bld) [Velocity]16 mm/hr0-19[facility] HospitalFibrin D- dimer [Presence] in Platelet poor plasma by Latex agglutinationOrdered By: Melinda Verduzco on 01-01-5978Gfkbxh D-dimer LA Ql (PPP)213 ng/mL0-243[facility] HospitalComment on above:The reference range for D-dimer [...] coagulation studies. Please contact the laboratory at [phone] for redraw instructions.Hematocrit Auto (Bld) [Volume fraction]Ordered By: Melinda Verduzco on 90-80-1932Rmoaaifctl (Bld) [Volume fraction]47.1 %38.8-50.0[facility] HospitalHemoglobin [Mass/volume] in BloodOrdered By: Melinda Verduzco on 44-89-3045Sncxdyfevz (Bld) [Mass/Vol]15.6 g/dL13.0-17.0[facility] HospitalLeukocytes [#/volume] corrected for nucleated erythrocytes in Blood by Automated counOrdered By: Melinda Verduzco on 00-03-9804LFX corrected for nucl RBC Auto (Bld) [#/Vol]15.1 10*3/uL4.1-10.5FDetwiler Memorial HospitalLymphocytes Auto (Bld) [#/Vol]Ordered By: Melinda Verduzco on 05-21-2023 Lymphocytes (Bld) [#/Vol]2.1 10*3/uL1.00-4.8[facility] Lymphocytes/100 WBC Auto (Bld)Ordered By: Melinda Verduzco on 05-21-2023 Lymphocytes/100 WBC (Bld)13.9 %.[facility] HospitalMCH Auto (RBC) [Entitic mass]Ordered By: Melinda Verduzco on 07-73-2807NLC (RBC) [Entitic mass] 33.3 pg27.5-35.2FDetwiler Memorial HospitalMCHC Auto (RBC) [Mass/Vol] Ordered By: Melinda Verduzco on 60-19-5568ZHOG (RBC) [Mass/Vol]33.1 g/dL 32.5-35.6FDetwiler Memorial HospitalMCV Auto (RBC) [Entitic vol]Ordered By: Melinda Verduzco on 70-27-8128UPY (RBC) [Entitic vol]100.7 fL83.5-101 [facility] HospitalMonocytes Auto (Bld) [#/Vol]Ordered By: Melinda Verduzco on 57-02-3542Ougjjamum (Bld) [#/Vol]1.0 10*3/uL0.0-0.8[facility] HospitalMonocytes/100 WBC Auto (Bld)Ordered By: Melinda Verduzco on 83-58-1499Czzdglniw/100 WBC (Bld)6.8 %.[facility] Neutrophils Auto (Bld) [#/Vol]Ordered By: Melinda Verduzco on 05-21-2023 Neutrophils (Bld) [#/Vol]11.8 10*3/uL1.8-7.7FDetwiler Memorial Hospital Neutrophils/100 WBC Auto (Bld)Ordered By: Melinda Verduzco on 05-21-2023 Neutrophils/100 WBC (Bld)78.3 %.[facility] HospitalNucleated erythrocytes [Presence] in Blood by Automated countOrdered By: Melinda Verduzco on 29-56-3401Txkpemwgm RBC Auto Ql (Bld)0.1 /100{WBC}0-0.5FDetwiler Memorial HospitalPlatelet mean volume Auto (Bld) [Entitic vol]Ordered By: Melinda Verduzco on 66-26-0044Qsbjyotq mean volume (Bld) [Entitic vol]8.7 fL6.6-10.1 [facility] HospitalPlatelets Auto (Bld) [#/Vol]Ordered By: Melinda Verduzco on 71-57-8199Dduhrmnml (Bld) [#/Vol]228 10*3/uW231-966HnzxoecugAultman Alliance Community HospitalRBC Auto (Bld) [#/Vol]Ordered By: Melinda Verduzco on 50-01-2137XQJ (Bld) [#/Vol]4.68 10*6/uL3.90-5.60[facility] HospitalWBC Auto (Bld) [#/Vol]Ordered By: Melinda Verduzco on 16-91-1009MYC (Bld) [#/Vol]15.1 10*3/uL4.1-10.5FDetwiler Memorial HospitalCBC AND AUTO DIFFon 20-46-1867MNLVUIGW BASOPHIL0.1 X10E9/LNormal0.0-0.2PUniversity Hospitals St. John Medical Center Comment on above:Performed By: #### CMP, PINR, 49098-5, 44371-9, CBCA, 49961-1, 00963-2 #### [facility] ([id number]) [address] [place] [address]WCUEGAUU FFUVDKUHCE64.9 X10E9/LHigh1.5-6.6Prem[facility] HospitalComment on above:Performed By: #### CMP, PINR, 03710-1, 12850-2, CBCA, 91568-7, 86749-1 #### [facility] ([id number]) [address] [place] [address]Exvynzpqz/100 WBC (Bld)0.4 %NormalPremier Health Miami Valley Hospital Comment on above:Performed By: #### CMP, PINR, 89680-3, 05780-0, CBCA, 83914-9, 36709-6 #### [facility] ([id number]) [address] [place] [address]Zynapcwotee (Bld) [#/Vol]0.0 10*3/uLNormal0.0-0.4Prem[facility] HospitalComment on above:Performed By: #### CMP, PINR, 10915-4, 37611-0, CBCA, 85976-5, 53381-7 #### [facility] ([id number]) [address] [place] [address]Blnfikvnaaq/100 WBC (Bld)0.3 %NormalProTexoma Medical Center Comment on above:Performed By: #### CMP, PINR, 60456-7, 96509-0, CBCA, 06688-6, 03837-1 #### [facility] ([id number]) [address] [place] [address]Yizcohzxbes distribution width (RBC) [Ratio]14.2 %Normal 11.5-15.0ProTexoma Medical CenterComment on above:Performed By: #### CMP, PINR, 22073-2, 69409-5, CBCA, 13955-6, 96480-3 #### [facility] ([id number]) [address] [place] [address]Mobpacuwwr (Bld) [Volume fraction]49.6 %Qram98-07MzcLtkswkTexoma Medical CenterComment on above:Performed By: #### CMP, PINR, 85378-0, 32264-9, CBCA, 95518-1, 83882-2 #### [facility] ([id number]) [address] [place] [address]Uolyxruhqi (Bld) [Mass/Vol]16.7 g/jRFvnubs01.0-17.0ProTexoma Medical CenterComment on above:Performed By: #### CMP, PINR, 19653-4, 97244-8, CBCA, 02963-6, 32920-9 #### [facility] ([id number]) [address] [place] [address]Inagnmevguf (Bld) [#/Vol]1.6 10*3/uLNormal1.0-3.5PWillis-Knighton South & the Center for Women’s Healthica [facility] Healthcare CenterComment on above:Performed By: #### CMP, PINR, 06768-9, 08872-0, CBCA, 84117-0, 52677-3 #### [facility] ([id number]) [address] [place] [address]Jwshgsrjpru/100 WBC (Bld)11.9 %NormalPremier Health Miami Valley Hospital Comment on above:Performed By: #### CMP, PINR, 43428-5, 18649-2, CBCA, 01389-8, 87801-3 #### [facility] ([id number]) [address] [place] [address]JNR (RBC) [Entitic mass]34.1 ecVjqw50-47VnaRlhqswPremier Health Miami Valley HospitalComment on above:Performed By: #### CMP, PINR, 14020-5, 29464-7, CBCA, 05653-1, 48365-7 #### [facility] ([id number]) [address] [place] [address]QCDA (RBC) [Mass/Vol]33.7 g/hJMvbbxa90-20JslEvrkmxTexoma Medical CenterComment on above:Performed By: #### CMP, PINR, 83220-3, 65072-2, CBCA, 18948-4, 66128-2 #### [facility] ([id number]) [address] [place] [address]CQS (RBC) [Entitic vol]101 zXHzdg17-018LnkNzuecjPremier Health Miami Valley HospitalComment on above:Performed By: #### CMP, PINR, 60247-6, 22522-5, CBCA, 52681-8, 13488-2 #### [facility] ([id number]) [address] [place] [address]Xmqbiochi (Bld) [#/Vol]0.5 10*3/uLNormal0-0.9Prem[facility] HospitalComment on above:Performed By: #### CMP, PINR, 30717-4, 87387-9, CBCA, 56523-0, 53199-3 #### [facility] ([id number]) [address] [place] [address]Ugzgsyvzs/100 WBC (Bld)3.7 %[facility] Comment on above:Performed By: #### CMP, PINR, 58347-6, 07491-7, CBCA, 90321-2, 77205-0 #### [facility] ([id number]) [address] [place] [address]Qwwqciynmid/100 WBC (Bld)83.7 %[facility] Comment on above:Performed By: #### CMP, PINR, 71425-1, 67414-5, CBCA, 81275-0, 37718-7 #### [facility] ([id number]) [address] [place] [address]Iqnnrefu mean volume (Bld) [Entitic vol]8.5 fLNormal7-12 [facility] HospitalComment on above:Performed By: #### CMP, PINR, 06444- 9, 83198-1, CBCA, 73958-6, 57445-8 #### [facility] ([id number]) [address] [place] [address]Tvlrkzgmh (Bld) [#/Vol]264 10*3/uIWyznfa505-553EkkTiaqxkPremier Health Miami Valley HospitalComment on above:Performed By: #### CMP, PINR, 51417-2, 44065-0, CBCA, 44827-1, 29137-9 #### [facility] ([id number]) [address] [place] [address]NIP COUNT4.89 X10E12/LNormal4.10-5.70[facility] Comment on above:Performed By: #### CMP, PINR, 36100-5, 20188-5, CBCA, 85926-2, 74216-8 #### [facility] ([id number]) [address] [place] [address]SME (Bld) [#/Vol]13.0 10*3/uLHigh4.0-11.0ProTexoma Medical CenterComment on above:Performed By: #### CMP, PINR, 19937-1, 79168-8, CBCA, 11521-0, 64594-2 #### [facility] ([id number]) [address] [place] [address] 28854ZIVKEHLEKLJGO METABOLIC PANELon 69-04-4576Jqclsxl [Mass/Vol]4.4 g/dLNormal3.2-5.3ProMedSilver Lake Medical Center, Ingleside CampusComment on above:Performed By: #### CMP, PINR, 49799-2, 84974-9, CBCA, 24387-5, 26006-5 #### [facility] ([id number]) [address] [place] [address]GOJ [Catalytic activity/Vol]69 U/FVocfin33-362XxtUvlzgeTexoma Medical CenterComment on above:Performed By: #### CMP, PINR, 35645-4, 14331-6, CBCA, 29841-7, 02406-3 #### [facility] ([id number]) [address] [place] [address]15[address]DLM [Catalytic activity/Vol]31 U/LNormal0-40ProTexoma Medical CenterComment on above:Performed By: #### CMP, PINR, 50876-2, 51455-6, CBCA, 06005-5, 56145-1 #### [facility] ([id number]) [address] [place] [address]13[address]Vmlbg gap [Moles/Vol]9 mmol/LNormal5-15ProTexoma Medical CenterComment on above:Performed By: #### CMP, PINR, 02174-4, 02275-9, CBCA, 54892-7, 86939-6 #### [facility] ([id number]) [address] [place] [address] 569[address]CMU [Catalytic activity/Vol]26 U/LNormal0-41ProTexoma Medical CenterComment on above:Performed By: #### CMP, PINR, 04573-3, 43566-2, CBCA, 75850-0, 01485-6 #### [facility] ([id number]) [address] [place] [address], [place] [address]Ptwplpfjy [Mass/Vol]0.8 mg/dLNormal0.3-1.2PUniversity Hospitals St. John Medical CenterComment on above:Performed By: #### CMP, PINR, 12234-3, 47310-1, CBCA, 82685-8, 98386-0 #### [facility] ([id number]) [address] [place] [address]Kyogsxj [Mass/Vol]9.6 mg/dLNormal8.5-10.5PUniversity Hospitals St. John Medical CenterComment on above:Performed By: #### CMP, PINR, 58622-9, 56164-5, CBCA, 35366-2, 60874-4 #### [facility] ([id number]) [address] [place] [address], [place] [address]Mrfeaoyr [Moles/Vol]99 mmol/CKozfgg72-354TvcLpdgtlTexoma Medical CenterComment on above:Performed By: #### CMP, PINR, 31240-6, 16798-6, CBCA, 55163-5, 88129-2 #### [facility] ([id number]) [address] [place] [address], [place] [address]FB0 [Moles/Vol]24 mmol/FLpkoea97-28RmxYnphrjUniversity Hospitals St. John Medical Center Comment on above:Performed By: #### CMP, PINR, 14444-0, 57055-8, CBCA, 40439-8, 93067-5 #### [facility] ([id number]) [address] [place] [address] 742[address]Okrttqhvtf [Mass/Vol]1.26 mg/dLHigh0.70-1.20ProTexoma Medical CenterComment on above:Result Comment: METHOD TRACEABLE TO IDMS STANDARD Performed By: #### CMP, PINR, 25384-0, 06519-6, CBCA, 56366-4, 43266-5 #### [facility] ([id number]) [address] [place] [address] 59019KDV/1.73 sq M.predicted among non-blacks MDRD (S/P/Bld) [Vol rate/Area]64 mL/min/{1.73_m2}Normal>59ProTexoma Medical CenterComment on above:Result Comment: Reported eGFR is based on the CKD-EPI 2020 equation that does not use a race coefficient.Performed By: #### CMP, PINR, 76739-2, 23780-2, CBCA, 74932-3, 97753-6 #### [facility] ([id number]) [address] [place] [address] 74337Axzkxiz [Mass/Vol]196 mg/aBYfbu71-58UaqZnjkedPremier Health [facility] Comment on above:Performed By: #### CMP, PINR, 87791-9, 55665-7, CBCA, 84817-5, 45368-0 #### [facility] ([id number]) [address] [place] [address] [id number] [Moles/Vol]3.8 mmol/LNormal3.5-5.0ProTexoma Medical CenterComment on above:Performed By: #### CMP, PINR, 84208-5, 90624-9, CBCA, 96971-3, 55799-5 #### [facility] ([id number]) [address] [place] [address] 16506Alztfjb [Mass/Vol]7.7 g/dLNormal6.0-8.0[facility] HospitalComment on above:Performed By: #### CMP, PINR, 20423-9, 32445-4, CBCA, 00361-2, 74538-3 #### [facility] ([id number]) [address] [place] [address] 78072Vzjqca [Moles/Vol]132 mmol/FKgx376-026OyxJgfdroTexoma Medical CenterComment on above:Performed By: #### CMP, PINR, 13375-0, 86397-6, CBCA, 92864-6, 27949-9 #### [facility] ([id number]) [address] [place] [address] 63063Swes nitrogen [Mass/Vol]40 mg/dLHigh5-27ProTexoma Medical CenterComment on above:Performed By: #### CMP, PINR, 37029-0, 27263-7, CBCA, 13444-0, 73519-1 #### [facility] ([id number]) [address] [place] [address] 72940EWYKCEUBDgb 67-78-0875Bpwizkqvi [Mass/Vol]1.7 mg/dLLow1.8-2.6 ProMAlta Bates Summit Medical CenterComment on above:Performed By: #### CMP, PINR, 71683- 9, 97403-8, CBCA, 27119-9, 53457-2 #### [facility] ([id number]) [address] [place] [address] 04842Yhnmsaufpzx peptide B [Mass/Vol]on 67-33-5108Witvjthyjwg peptide B (Bld) [Mass/Vol]206 pg/mLHigh<100.0ProTexoma Medical CenterComment on above:Performed By: #### CMP, PINR, 45196-2, 98899-6, CBCA, 32249-2, 91121-9 #### [facility] ([id number]) [address] [place] [address] 25742VLCEROI AND INRon 07-49-9694NGR Coag (PPP) [Relative time]1.1 {INR}Normal0.8-1.1PUniversity Hospitals St. John Medical CenterComment on above:Performed By: #### CMP, PINR, 99589-5, 37195-7, CBCA, 95248-6, 93664-5 #### [facility] ([id number]) [address] [place] [address] 36396CZ Coag (PPP) [Time]12.3 sNormal9.8-13.2PUniversity Hospitals St. John Medical CenterComment on above:Result Comment: NEW REFERENCE RANGEPerformed By: #### CMP, PINR, 73946-4, 48082-5, CBCA, 28943-2, 98982-6 #### [facility] ([id number]) [address] [place] [address] 58019VMQTZBMA Ion 55-21-8573Piuogpfk I.cardiac [Mass/Vol]0.01 ng/mL Normal0.00-0.04[facility] HospitalComment on above:Performed By: #### CMP, PINR, 92208-4, 68204-9, CBCA, 90931-3, 00893-4 #### [facility] ([id number]) [address] [place] [address] 85516iBJQ Coag (PPP) [Time]on 02-08-9642pCHU Coag (Bld) [Time]28 s Myrvty74-32ZjmZayobvTexoma Medical CenterComment on above:Result Comment: NEW REFERENCE RANGEPerformed By: #### CMP, PINR, 38627-5, 55525-0, CBCA, 88710-9, 20737-9 #### [facility] ([id number]) [address] [place] [address] [id number] Auto (Bld) [#/Vol]Ordered By: Sarai Mendez on 11-76-6721Pjeogqmcp (Bld) [#/Vol]0.1 10*3/uL0.0-0.2FDetwiler Memorial HospitalBasophils/100 WBC Auto (Bld)Ordered By: Sarai Mendez on 01-29-2023 Basophils/100 WBC (Bld)0.6 %.[facility] HospitalEosinophils Auto (Bld) [#/Vol]Ordered By: Sarai Mendez on 80-86-6806Upxgfpaqzyt (Bld) [#/Vol] 0.0 10*3/uL0.0-0.45[facility] HospitalEosinophils/100 WBC Auto (Bld)Ordered By: Sarai Mendez on 08-45-2238Qqcpfmkdhvq/100 WBC (Bld)0.4 %. [facility] HospitalErythrocyte distribution width Auto (RBC) [Ratio]Ordered By: Sarai Mendez on 96-86-7950Lnrjqfjvwvy distribution width (RBC) [Ratio]13.8 %12.0-14.8[facility] HospitalHematocrit Auto (Bld) [Volume fraction]Ordered By: Sarai Mendez on 21-89-2562Aliwsnkhup (Bld) [Volume fraction]41.9 %38.8-50.0[facility] HospitalHemoglobin [Mass/volume] in BloodOrdered By: Sarai Mendez on 47-05-6576Uawzlkqisu (Bld) [Mass/Vol]14.2 g/dL13.0-17.0[facility] HospitalLeukocytes [#/volume] corrected for nucleated erythrocytes in Blood by Automated coun Ordered By: Sarai Mendez on 91-80-0865RND corrected for nucl RBC Auto (Bld) [#/Vol]11.9 10*3/uL4.1-10.5FDetwiler Memorial HospitalLymphocytes Auto (Bld) [#/Vol]Ordered By: Sarai Mendez on 59-66-1462Qomfmtmxyux (Bld) [#/Vol] 1.3 10*3/uL1.00-4.8[facility] HospitalLymphocytes/100 WBC Auto (Bld)Ordered By: Sarai Mendez on 98-20-4608Dffqsdhrghq/100 WBC (Bld)10.5 %. [facility] HospitalMCH Auto (RBC) [Entitic mass]Ordered By: Sarai Mendez on 60-10-3316CDZ (RBC) [Entitic mass]35.8 pg27.5-35.2FDetwiler Memorial HospitalMCHC Auto (RBC) [Mass/Vol]Ordered By: Sarai Mendez on 02-10-7242CJKC (RBC) [Mass/Vol]33.8 g/dL32.5-35.6FDetwiler Memorial HospitalMCV Auto (RBC) [Entitic vol]Ordered By: Sarai Mendez on 00-23-6011XBS (RBC) [Entitic vol]105.8 fL83.5-101[facility] HospitalMonocytes Auto (Bld) [#/Vol]Ordered By: Sarai Mendez on 56-80-7880Jxcrbknhx (Bld) [#/Vol]0.6 10*3/uL0.0-0.8[facility] HospitalMonocytes/100 WBC Auto (Bld)Ordered By: Sarai Mendez on 52-09-9105Syjbtqvrf/100 WBC (Bld)5.3 %. [facility] HospitalNeutrophils Auto (Bld) [#/Vol]Ordered By: Sarai Mendez on 62-19-3831Gxwpvmektdx (Bld) [#/Vol]9.9 10*3/uL1.8-7.7 [facility] HospitalNeutrophils/100 WBC Auto (Bld)Ordered By: Sarai Mendez on 68-87-2746Cxntjfjqafr/100 WBC (Bld)83.2 %.[facility] HospitalNucleated erythrocytes [Presence] in Blood by Automated count Ordered By: Sarai Mendez on 38-85-4634Ocgehsbtw RBC Auto Ql (Bld)0.1 /100{WBC}0-0.5FDetwiler Memorial HospitalPlatelet mean volume Auto (Bld) [Entitic vol]Ordered By: Sarai Mendez on 68-92-3052Ojxesthe mean volume (Bld) [Entitic vol]8.4 fL6.6-10.1FDetwiler Memorial HospitalPlatelets Auto (Bld) [#/Vol]Ordered By: Sarai Mendez on 56-86-2625Fhlwlidqn (Bld) [#/Vol]187 10*3/pY340-724SvkktvoexAultman Alliance Community HospitalRBC Auto (Bld) [#/Vol]Ordered By: Sarai Mendez on 23-44-8283AJA (Bld) [#/Vol]3.96 10*6/uL3.90-5.60[facility] HospitalWBC Auto (Bld) [#/Vol]Ordered By: Sarai Mendze on 93-72-5568UJZ (Bld) [#/Vol]11.9 10*3/uL4.1-10.5FDetwiler Memorial Hospital Bilirubin Test strip Ql (U)Ordered By: Sarai Mendez on 91-24-9377Nsajgqaxj Ql (U)NegativeNegativeAultman Alliance Community HospitalCalcium [Mass/volume] in Serum or PlasmaOrdered By: Sarai Mendez on 54-70-8943Nhorqye [Mass/Vol]9.3 mg/dL8.6-10.3FDetwiler Memorial HospitalCarbon dioxide, total [Moles/volume] in Serum or PlasmaOrdered By: Sarai Mendez on 73-17-4078UF7 [Moles/Vol]28.7 mmol/L21.0-31.0[facility] HospitalChloride [Moles/volume] in Serum or PlasmaOrdered By: Sarai Mendez on 01-26-2023 Chloride [Moles/Vol]101 mmol/O04-167TeayihvsrAultman Alliance Community HospitalColor Auto (U)Ordered By: Sarai Mendez on 26-13-7113Qvcim (U)YellowYellowAultman Alliance Community HospitalCreatinine [Mass/volume] in Serum or PlasmaOrdered By: Sarai Mendez on 96-12-0824Sfwmtzuvok [Mass/Vol]1.01 mg/dL0.70-1.30[facility] HospitalFructosamine [Moles/volume] in Serum or PlasmaOrdered By: Sarai Mendez on 13-17-1605Qqrhdfqfbtma [Moles/Vol]192 umol/L0-285[facility] HospitalComment on above:Published reference interval for apparently healthysubjects between age 20 and 60 is 205 - 285 umol/L and in apoorly controlled diabetic population is 228 - 563 umol/Lwith a mean of 396 umol/L.Performed at: [facility] Lab[address] [id number] Director: Lucas Cooper PhD, Phone: [phone] [Mass/volume] in Serum or PlasmaOrdered By: Sarai Mendez on 17-17-3909Iqvpcdu [Mass/Vol]126 mg/lV51-678OmyhtwmfyAultman Alliance Community HospitalComment on above:ADA recommended reference rangeRandom Glucose Reference Range is dependent on time and content of last meal. Glucose of more than 200 mg/dL in a nonstressed, ambulatory subject supports the diagnosisof Diabetes Mellitus.Ketones Auto test strip (U) [Mass/Vol]Ordered By: Sarai Mendez on 83-17-3749Prwvjsi (U) [Mass/Vol]NegativeNegativeAultman Alliance Community HospitalNitrite Test strip Ql (U)Ordered By: Sarai Mendez on 73-72-9767Qwixvtb Ql (U)NegativeNegative [facility] HospitalNo Panel InformationOrdered By: Sarai Mendez on 26-28-3989Rmbnqwziv GFR (CKD-EPI)> 60.0 mL/MinAultman Alliance Community HospitalPharmacy Creatinine Clearance (ChemN/AFDetwiler Memorial Hospital Potassium [Moles/volume] in Serum or PlasmaOrdered By: Sarai Mendez on 48-31-0299Mkgewisbq [Moles/Vol]4.2 mmol/L3.5-5.1FDetwiler Memorial HospitalProtein Auto test strip (U) [Mass/Vol]Ordered By: Sarai Mendez on 00-76-7723Iptdxzq (U) [Mass/Vol]NegativeNegativeCity Hospitalerum or plasma anion gap determinationOrdered By: Sarai Mendez on 08-54-3752Ssqwo gap [Moles/Vol]10.5 mmol/L6.0-15.0City Hospitalodium [Moles/volume] in Serum or PlasmaOrdered By: Sarai Mendez on 70-02-6048Vpizgl [Moles/Vol]136 mmol/B592-632JobhugtugAultman Alliance Community Hospital Specific gravity Auto test strip (U) [Rel density]Ordered By: Sarai Mendez on 30-38-7053Oiiivovd gravity (U) [Rel density]1.0191.001-1.030[facility] HospitalUrea nitrogen [Mass/volume] in Serum or PlasmaOrdered By: Sarai Mendez on 96-96-2935Lxke nitrogen [Mass/Vol]21 mg/dL7-25[facility] HospitalUrine clarity by refractometry automatedOrdered By: Sarai Mendez on 80-06-6137Ppqlpze Refractometry automated (U)ClearCleGlenbeigh HospitalUrine glucose measurement by automated test strip (mass/volume)Ordered By: Sarai Mendez on 89-14-7217Xjgeerd Auto test strip (U) [Mass/Vol]Normal mg/dLNoSelect Medical Cleveland Clinic Rehabilitation Hospital, AvonUrine hemoglobin detection by automated test stripOrdered By: Sarai Mendez on 20-89-5578Wakfhkgxnh Auto test strip Ql (U)NegativeNegOhio State Harding HospitalUrine leukocyte esterase detection by automated test stripOrdered By: Sarai Mendez on 38-18-7763Bmuifmcxp esterase Auto test strip Ql (U) NegativeNegOhio State Harding HospitalUrobilinogen Auto test strip (U) [Mass/Vol]Ordered By: Sarai Mendez on 83-71-7772Ubgigfrzuypy (U) [Mass/Vol]Normal mg/dLNormWyandot Memorial HospitalpH Auto test strip (U)Ordered By: Sarai Mendez on 72-74-8511iN (U)7.0 [pH]5.0-9.0[facility] HospitalC-REACTIVE PROTEIN (CRP)on 26-00-9994QTU [Mass/Vol]<0.9 mg/dLSelect Medical [facility]ty [facility] CREATINE KINASEon 05-99-4339OZ [Catalytic activity/Vol] 35 U/LLow51 - 298 U/LCleveland ClinicComprehensive metabolic 2000 panelon 24-76-4369Eqdxoxv [Mass/Vol]4.9 g/dL3.9 - 4.9 g/dLHarrison ClinicALP [Catalytic activity/Vol]57 U/L38 - 113 U/LCleveland ClinicALT [Catalytic activity/Vol]27 U/L10 - 54 U/LCleveland ClinicAnion gap [Moles/Vol]15 mmol/L9 - 18 mmol/L [facility] CenterAST [Catalytic activity/Vol]16 U/L14 - 40 U/LCleveland [facility] Bilirubin [Mass/Vol]0.7 mg/dL0.2 - 1.3 mg/dLOhiohealth Grant Medical CenterCalcium [Mass/Vol] 10.3 mg/dLHigh8.5 - 10.2 mg/dLOhiohealth Grant Medical CenterChloride [Moles/Vol]98 mmol/L97 - 105 mmol/LCleveland ClinicCO2 [Moles/Vol]24 mmol/L22 - 30 mmol/LCleveland [facility] Creatinine [Mass/Vol]0.98 mg/dL0.73 - 1.22 mg/dLOhiohealth Grant Medical CenterEstimated Glomerular Filtration Rate87 mL/min/1.73m>=60 mL/min/1.73mCleveland Redwood Llc Glucose [Mass/Vol]120 mg/fZJtjq48 - 99 mg/dLOhiohealth Grant Medical CenterPotassium [Moles/Vol]4.3 mmol/L3.7 - 5.1 mmol/LCleveland ClinicProtein [Mass/Vol]7.1 g/dL 6.3 - 8.0 g/dLKettering Health – Soin Medical Centerodium [Moles/Vol]137 mmol/L136 - 144 mmol/L [facility] CenterUrea nitrogen [Mass/Vol]20 mg/dL9 - 24 mg/dLOhiohealth Grant Medical Center RHEUMATOID FACTOR BLon 40-37-6599Rvnrwnrpje factor Qn<16 IU/mLCleveland Redwood Llc URIC ACID BLOODon 31-74-5333Ffoax [Mass/Vol]6.1 mg/dL4.0 - 8.1 mg/dLOhiohealth Grant Medical CenterVITAMIN B12 BLOODon 95-53-4256Lfevaltkq (Vitamin B12) [Mass/Vol]343 pg/mL 232 - 1,245 pg/mLCleveland Redwood LlcCBC panel Auto (Bld)on 87-57-6388Zrfdqzmpxig distribution width (RBC) [Ratio]12.9 %11.5 - 15.0 %[facility] Medical CenterHematocrit (Bld) [Volume fraction]48.7 %39.0 - 51.0 %[facility] CenterHemoglobin (Bld) [Mass/Vol]16.3 g/dL13.0 - 17.0 g/dLGrand Lake Joint Township District Memorial HospitalH (RBC) [Entitic mass]35.6 gqYwzr90.0 - 34.0 pgCHenry County HospitalHC (RBC) [Mass/Vol]33.5 g/dL30.5 - 36.0 g/dLOhiohealth Grant Medical CenterMCV (RBC) [Entitic vol]106.3 pBVeib29.0 - 100.0 fLClevelonslow memorial hospital ClinicNucleated RBC (Bld) [#/Vol]<0.01 k/uLOhiohealth Grant Medical CenterPlatelet mean volume (Bld) [Entitic vol]10.7 fL9.0 - 12.7 fLCtwin city hospital ClinicPlatelets (Bld) [#/Vol] 207 10*3/uL150 - 400 k/uLOhiohealth Grant Medical CenterRBC (Bld) [#/Vol]4.58 10*6/uL4.20 - 6.00 m/uLOhiohealth Grant Medical CenterWBC (Bld) [#/Vol]12.21 10*3/uLHigh3.70 - 11.00 k/uL [facility] CenterESR Westergren method (Bld) [Velocity]on 44-61-1700JUM (Bld) [Velocity]2 mm/h0 - 15 mm/hrWright-Patterson Medical Centerbumin [Mass/volume] in Serum or Plasma by Bromocresol green (BCG) dye binding methoOrdered By: Sarai Mendez on 21-51-6363Tudalpz BCG dye [Mass/Vol]4.3 g/dL3.5-5.7FDetwiler Memorial HospitalGlucose mean value [Mass/volume] in Blood Estimated from glycated hemoglobinOrdered By: Sarai Mendez on 48-24-1806Aicipmv glucose Estimated from glycated hemoglobin (Bld) [Mass/Vol]114 mg/dLAultman Alliance Community HospitalHemoglobin A1c percentageOrdered By: Sarai Mendez on 28-42-6349JqL0h (Bld) [Mass fraction]5.6 %4.3-5.6FDetwiler Memorial HospitalComment on above:Increased risk for diabetes: 5.7 - 6.4diabetes: >6.4glycemic control for adults with diabetes: <7.0Hemoglobin [Mass/volume] in BloodOrdered By: Sarai Mendez on 75-64-3410Grsgfepraw (Bld) [Mass/Vol]14.7 g/dL13.0-17.0[facility] HospitalVitamin D+Metabolites [Mass/volume] in Serum or Plasma Ordered By: Sarai Mendez on 69-73-9149Kmitqzu D+Metabolites [Mass/Vol]13.3 ng/cV47-084PjpfrjrrmAultman Alliance Community HospitalComment on above:VITAMIN D STATUS 25(OH)VITAMIN D RANGE (ng/mL) Deficient <20 Insufficient 20 to <23Vgpkfmzjaz80 to 100Reference: Ras MF,Tanika STILES, Sergio OWUSU, et al. Evaluation,treatment, and prevention of vitamin D deficiency; an Endocrine Society clinical practice guideline. JCEM. 2010; 96(7):1911-30.Activated partial thromboplastin time (aPTT) in platelet poor plasma by coagulation a Ordered By: Damien Holbrook on 29-60-4380yPDB Coag (PPP) [Time]24.5 s25.1-36.5 [facility] HospitalAlanine aminotransferase [Enzymatic activity/volume] in Serum or PlasmaOrdered By: Damien Holbrook on 25-06-6650MLI [Catalytic activity/Vol]37 U/L7-52[facility] HospitalAlbumin [Mass/volume] in Serum or Plasma by Bromocresol green (BCG) dye binding metho Ordered By: Damien Holbrook on 25-41-7677Zzzfflk BCG dye [Mass/Vol]4.3 g/dL3.5-5.7 [facility] HospitalAlkaline phosphatase [Enzymatic activity/volume] in Serum or PlasmaOrdered By: Damien Holbrook on 52-31-6434KAN [Catalytic activity/Vol]51 U/P05-431TwegckgaoAultman Alliance Community HospitalAspartate aminotransferase [Enzymatic activity/volume] in Serum or PlasmaOrdered By: Damien oHlbrook on 50-71-2847YUS [Catalytic activity/Vol]26 U/I39-18JdakdyctgAultman Alliance Community HospitalAutomated erythrocytes count in urine sediment (number/area)Ordered By: Damien Holbrook on 50-17-7612AEP Auto (Urine sed) [#/Area] 3-4 [HPF]0-4FDetwiler Memorial HospitalAutomated leukocytes count in urine sediment (number/area)Ordered By: Damien Holbrook on 86-54-4955SNB Auto (Urine sed) [#/Area]3-4 [HPF]0-4FDetwiler Memorial HospitalAutomated urine hyaline casts count (number/volume)Ordered By: Damien Holbrook on 59-84-3144Anhqvzd casts Auto (U) [#/Vol]20-49 [LPF]0-1FDetwiler Memorial HospitalBasophils Auto (Bld) [#/Vol]Ordered By: Damien Holbrook on 88-22-7402Wpnasorgv (Bld) [#/Vol] 0.1 10*3/uL0.0-0.2FDetwiler Memorial HospitalBasophils/100 WBC Auto (Bld) Ordered By: Damien Holbrook on 73-88-2903Stsjqmmwf/100 WBC (Bld)1.1 %.[facility] HospitalBilirubin Test strip Ql (U)Ordered By: Damien Holbrook on 76-12-7124Pkicnpvha Ql (U)1+NegativeAultman Alliance Community Hospital Bilirubin.total [Mass/volume] in Serum or PlasmaOrdered By: Damien Holbrook 55-49-2264Reyzkzmuw [Mass/Vol]1.0 mg/dL0.3-1.0[facility] Calcium [Mass/volume] in Serum or PlasmaOrdered By: Damien Holbrook on 10-11-2022 Calcium [Mass/Vol]9.7 mg/dL8.6-10.3FDetwiler Memorial HospitalCarbon dioxide, total [Moles/volume] in Serum or PlasmaOrdered By: Damien Holbrook on 27-25-4417AG6 [Moles/Vol]27.5 mmol/L21.0-31.0[facility] Chloride [Moles/volume] in Serum or PlasmaOrdered By: Damien Holbrook on 10-11-2022 Chloride [Moles/Vol]101 mmol/Y40-468WevapybfwAultman Alliance Community HospitalColor Auto (U)Ordered By: Damien Holbrook on 46-28-5097Nwtyw (U)Dark yellowYellowAultman Alliance Community HospitalCreatinine [Mass/volume] in Serum or PlasmaOrdered By: Damien Holbrook on 05-95-0558Ghatwvtjhr [Mass/Vol]1.25 mg/dL0.70-1.30[facility] HospitalEosinophils Auto (Bld) [#/Vol]Ordered By: Damien Holbrook on 41-62-9959Ljsyvaxyrax (Bld) [#/Vol]0.0 10*3/uL0.0-0.45[facility] HospitalEosinophils/100 WBC Auto (Bld)Ordered By: Damien Holbrook on 91-52-7740Fiuhdsrcmiq/100 WBC (Bld)0.4 %.[facility] Erythrocyte distribution width Auto (RBC) [Ratio]Ordered By: Damien Holbrook on 50-92-8812Qracwiocojn distribution width (RBC) [Ratio]14.4 %12.0-14.8[facility] HospitalGlobulin Calc (S) [Mass/Vol]Ordered By: Damien Holbrook 72-29-9173Uipzxczp (S) [Mass/Vol]2.8 g/dLAultman Alliance Community Hospital Glucose [Mass/volume] in Serum or PlasmaOrdered By: Damien Holbrook on 10-11-2022 Glucose [Mass/Vol]128 mg/xQ59-868OlqmvhoibAultman Alliance Community HospitalComment on above:ADA recommended reference rangeRandom Glucose Reference Range is dependent on time and content of last meal. Glucose of more than 200 mg/dL in a nonstressed, ambulatory subject supports the diagnosisof Diabetes Mellitus. Hematocrit Auto (Bld) [Volume fraction]Ordered By: Damien Holbrook on 10-11-2022 Hematocrit (Bld) [Volume fraction]45.3 %38.8-50.0[facility] HospitalHemoglobin [Mass/volume] in BloodOrdered By: Damien Holbrook 10-11-2022 Hemoglobin (Bld) [Mass/Vol]15.5 g/dL13.0-17.0[facility] Ketones Auto test strip (U) [Mass/Vol]Ordered By: Damien Holbrook on 10-11-2022 Ketones (U) [Mass/Vol]TraceNegativeAultman Alliance Community HospitalLaboratory - CoagulationOrdered By: Damien Holbrook on 13-61-5516NS Coag (PPP) [Time]11.8 s 9.0-12.9[facility] HospitalLeukocytes [#/volume] corrected for nucleated erythrocytes in Blood by Automated counOrdered By: Damien Holbrook on 26-63-5081JMS corrected for nucl RBC Auto (Bld) [#/Vol]11.9 10*3/uL4.1-10.5 [facility] HospitalLymphocytes Auto (Bld) [#/Vol]Ordered By: Damien Holbrook on 40-31-9691Axhnlgptsmf (Bld) [#/Vol]1.5 10*3/uL1.00-4.8[facility] HospitalLymphocytes/100 WBC Auto (Bld)Ordered By: Damien Holbrook on 32-55-0696Iepzsjscimt/100 WBC (Bld)13.0 %.[facility] HospitalMCH Auto (RBC) [Entitic mass]Ordered By: Damien Holbrook on 66-47-9832URE (RBC) [Entitic mass]35.3 pg27.5-35.2FDetwiler Memorial HospitalMCHC Auto (RBC) [Mass/Vol]Ordered By: Damien Holbrook on 33-43-5647HIRW (RBC) [Mass/Vol]34.2 g/dL 32.5-35.6FDetwiler Memorial HospitalMCV Auto (RBC) [Entitic vol]Ordered By: Damien Holbrook on 01-10-0984KNK (RBC) [Entitic vol]103.4 fL83.5-101[facility] HospitalMagnesium [Mass/volume] in Serum or PlasmaOrdered By: Damien Holbrook on 97-22-9074Ckvfqflyz [Mass/Vol]1.6 mg/dL1.9-2.7FDetwiler Memorial HospitalMonocyte distribution width [Entitic volume] in Blood by AutomatedOrdered By: Damien Holbrook on 91-05-1343Yiuumadl distribution width Auto (Bld) [Entitic vol]21.21 %0.00-20.00[facility] HospitalComment on above:For adults in ED, MDW > 20.0 may be associated with a higher risk of sepsis during the first 12 hrs of hospital admissionMonocytes Auto (Bld) [#/Vol] Ordered By: Damien Holbrook on 03-80-8841Qcoyrcxpq (Bld) [#/Vol]1.1 10*3/uL0.0-0.8 [facility] HospitalMonocytes/100 WBC Auto (Bld)Ordered By: Damien Holbrook on 20-77-4871Eyzzcnnsu/100 WBC (Bld)9.1 %.[facility] HospitalNatriuretic peptide B [Mass/Vol]Ordered By: Damien Holbrook on 10-11-2022 Natriuretic peptide B (Bld) [Mass/Vol]206.0 pg/mL5-100[facility] HospitalNeutrophils Auto (Bld) [#/Vol]Ordered By: Damien Holbrook on 10-11-2022 Neutrophils (Bld) [#/Vol]9.1 10*3/uL1.8-7.7FDetwiler Memorial Hospital Neutrophils/100 WBC Auto (Bld)Ordered By: Damien Holbrook on 10-11-2022 Neutrophils/100 WBC (Bld)76.4 %.[facility] HospitalNitrite Test strip Ql (U)Ordered By: Damien Holbrook on 55-21-6281Mykytzj Ql (U)NegativeNegative [facility] HospitalNo Panel InformationOrdered By: Damien Holbrook on 86-83-3114Ofpjzvzqg GFR (CKD-EPI)> 60.0 mL/MinAultman Alliance Community Hospital Pharmacy Creatinine Clearance (ChemN/AFDetwiler Memorial HospitalNucleated erythrocytes [Presence] in Blood by Automated countOrdered By: Damien Holbrook on 61-26-1884Lowzatvnj RBC Auto Ql (Bld)0.1 /100{WBC}0-0.5FDetwiler Memorial HospitalPlatelet mean volume Auto (Bld) [Entitic vol]Ordered By: Damien Holbrook on 24-87-2692Qaylqphy mean volume (Bld) [Entitic vol]8.6 fL6.6-10.1 [facility] HospitalPlatelet poor plasma international normalized ratio (INR) by coagulation assay (relatOrdered By: Damien Holbrook on 73-47-3509YWK Coag (PPP) [Relative time]1.0 {INR}[facility] HospitalComment on above:INR Therapeutic Range A) Pre- [...] Auto (Bld) [#/Vol]Ordered By: Damien Holbrook on 78-90-1145Lndldrsop (Bld) [#/Vol]197 10*3/sR660-463NfgifiuhlAultman Alliance Community HospitalPotassium [Moles/volume] in Serum or PlasmaOrdered By: Damien Holbrook on 25-14-8103Nfdbqkpmq [Moles/Vol]4.0 mmol/L3.5-5.1FDetwiler Memorial HospitalProtein Auto test strip (U) [Mass/Vol]Ordered By: Damien Holbrook on 70-59-2876Lkabokm (U) [Mass/Vol]100 mg/dLNegativeAultman Alliance Community HospitalProtein [Mass/volume] in Serum or PlasmaOrdered By: Damien Holbrook on 53-21-0651Epnuyzy [Mass/Vol]7.1 g/dL6.4-8.9[facility] HospitalRBC Auto (Bld) [#/Vol]Ordered By: Damien Holbrook on 79-32-8461LNZ (Bld) [#/Vol]4.38 10*6/uL3.90-5.60City Hospitalerum or plasma albumin/globulin mass ratioOrdered By: Damien Holbrook on 10-11-2022 Albumin/Globulin [Mass ratio]1.5 {ratio}City Hospitalerum or plasma anion gap determinationOrdered By: Damien Holbrook on 83-08-2122Tfxvh gap [Moles/Vol]12.5 mmol/L6.0-15.0City Hospitalodium [Moles/volume] in Serum or PlasmaOrdered By: Damien Holbrook on 41-84-1325Rvkacl [Moles/Vol]137 mmol/Z204-148JssedbxdgCity Hospitalpecific gravity Auto test strip (U) [Rel density]Ordered By: Damien Holbrook on 00-69-2964Wemgajrf gravity (U) [Rel density]1.0271.001-1.030[facility] Squamous epithelial cells detection in urine sediment by light microscopyOrdered By: Damien Holbrook on 33-06-3010Lyifaodyux cells.squamous LM Ql (Urine sed)0-1 [HPF]0-2FDetwiler Memorial HospitalTroponin I.cardiac [Mass/volume] in Serum or Plasma by Detection limit <= 0.01 ng/Ordered By: Damien Holbrook on 58-26-9578Dlwmgpdd I.cardiac DL <= 0.01 ng/mL [Mass/Vol]17.7 pg/mL0.0-20.0 [facility] HospitalUrea nitrogen [Mass/volume] in Serum or Plasma Ordered By: Damien Holbrook on 23-53-8867Qbnt nitrogen [Mass/Vol]19 mg/dL7-25 [facility] HospitalUrine bacteria detection by automated method Ordered By: Damien Holbrook on 13-15-2690Ykmruqoc Auto Ql (U)None seenNone Seen [facility] HospitalUrine clarity by refractometry automatedOrdered By: Damien Holbrook on 08-99-5235Gylhkxa Refractometry automated (U)CloudyClear [facility] HospitalUrine glucose measurement by automated test strip (mass/volume)Ordered By: Damien Holbrook on 50-63-9933Yvetrdp Auto test strip (U) [Mass/Vol]Normal mg/dLNoSelect Medical Cleveland Clinic Rehabilitation Hospital, AvonUrine hemoglobin detection by automated test stripOrdered By: Damien Holbrook 53-44-8669Nlndwrtgok Auto test strip Ql (U)NegativeNegativeAultman Alliance Community HospitalUrine leukocyte esterase detection by automated test stripOrdered By: Damien Holbrook on 69-51-4816Tkfghgbtq esterase Auto test strip Ql (U)1+ NegativeAultman Alliance Community HospitalUrobilinogen Auto test strip (U) [Mass/Vol]Ordered By: Damien Holbrook on 84-32-7806Ukwaexdwuytz (U) [Mass/Vol] Normal mg/dLNoSelect Medical [facility] Clinic Rehabilitation Hospital, AvonWBC Auto (Bld) [#/Vol]Ordered By: Damien Holbrook on 47-79-8731VKH (Bld) [#/Vol]11.9 10*3/uL4.1-10.5FDetwiler Memorial HospitalpH Auto test strip (U)Ordered By: Damien Holbrook on 23-13-4364xS (U)5.5 [pH]5.0-9.0[facility] HospitalAutomated erythrocytes count in urine sediment (number/area)Ordered By: Sarai Georges on 76-97-5554UVA Auto (Urine sed) [#/Area]1-2 [HPF]0-4FDetwiler Memorial HospitalAutomated leukocytes count in urine sediment (number/area)Ordered By: Sarai Georges on 92-68-0283NIK Auto (Urine sed) [#/Area]None seen [HPF]0-4 [facility] HospitalBasophils Auto (Bld) [#/Vol]Ordered By: Sarai Georges on 80-83-7157Mslilgzkl (Bld) [#/Vol]0.1 10*3/uL0.0-0.2FDetwiler Memorial HospitalBasophils/100 WBC Auto (Bld)Ordered By: Sarai Georges on 23-70-0384Mhreamyep/100 WBC (Bld)0.6 %.[facility] Bilirubin Auto test strip Ql (U)Ordered By: Sarai Georges on 10-02-2022 Bilirubin Ql (U)NegativeNegativeAultman Alliance Community HospitalC reactive protein [Mass/volume] in Serum or PlasmaOrdered By: Sarai Georges on 10-02-2022 CRP [Mass/Vol]0.5 mg/dL0.0-0.5FDetwiler Memorial HospitalCreatine kinase [Enzymatic activity/volume] in Serum or PlasmaOrdered By: Sarai Georges on 25-33-1724JM [Catalytic activity/Vol]52 U/O60-407ExhmbziibAultman Alliance Community HospitalCreatinine [Mass/volume] in Serum or PlasmaOrdered By: Sarai Georges on 02-61-9844Yakliquvox [Mass/Vol]1.00 mg/dL0.70-1.30[facility] HospitalDNA double strand Ab [Units/volume] in SerumOrdered By: Sarai Georges on [id number] double strand Ab Qn (S)[IU]/mL0-9[facility] Comment on above:Negative <5 Equivocal 5 - 9 Positive >9Performed at: - [facility] [id number] Director: Lucas Cooper PhD, Phone: [phone] Auto (Bld) [#/Vol]Ordered By: Sarai Georges on 21-80-2800Zevackjagkz (Bld) [#/Vol]0.0 10*3/uL0.0-0.45[facility] HospitalEosinophils/100 WBC Auto (Bld)Ordered By: Sarai Georges on 88-40-7588Jajlizisdut/100 WBC (Bld)0.5 %.[facility] [facility] Erythrocyte distribution width Auto (RBC) [Ratio]Ordered By: Sarai Georges on 19-90-5416Mcuhrrheivv distribution width (RBC) [Ratio]14.9 %12.0-14.8[facility] HospitalErythrocyte sedimentation rate by Photometric method Ordered By: Sarai Georges on 64-70-9314OLZ Photometric method (Bld) [Velocity] 16 mm/hr0-19[facility] HospitalHematocrit Auto (Bld) [Volume fraction]Ordered By: Sarai Georges on 88-36-9885Fethenihlc (Bld) [Volume fraction]41.2 %38.8-50.0[facility] HospitalHemoglobin [Mass/volume] in BloodOrdered By: Sarai Georges on 13-81-7119Fsuxuzxsth (Bld) [Mass/Vol]14.0 g/dL13.0-17.0[facility] HospitalKetones Auto test strip (U) [Mass/Vol]Ordered By: Sarai Georges on 22-69-2842Plizxja (U) [Mass/Vol]NegativeNegativeAultman Alliance Community HospitalLaboratory - UrinalysisOrdered By: Sarai Georges on 43-52-9026Mvhlwzn casts LM Ql (Urine sed)0-8 [LPF]0-8[facility] HospitalLeukocytes [#/volume] corrected for nucleated erythrocytes in Blood by Automated counOrdered By: Sarai Georges on 46-32-9597AYY corrected for nucl RBC Auto (Bld) [#/Vol]9.5 10*3/uL4.1-10.5 [facility] HospitalLymphocytes Auto (Bld) [#/Vol]Ordered By: Sarai Georges on 07-51-8084Ruoizrwwmhc (Bld) [#/Vol]1.7 10*3/uL1.00-4.8 [facility] HospitalLymphocytes/100 WBC Auto (Bld)Ordered By: Sarai Georges on 46-84-4380Jzfkpdeamal/100 WBC (Bld)18.5 %.[facility] Auto (RBC) [Entitic mass]Ordered By: Sarai Georges on 55-14-4953FYE (RBC) [Entitic mass]35.4 pg27.5-35.2FOhioHealth Van Wert HospitalHC Auto (RBC) [Mass/Vol]Ordered By: Sarai Georges on 61-54-8452ZAYM (RBC) [Mass/Vol]33.9 g/dL32.5-35.6FDetwiler Memorial HospitalMCV Auto (RBC) [Entitic vol]Ordered By: Sarai Georges on 22-15-5110BTO (RBC) [Entitic vol]104.5 fL83.5-101[facility] HospitalMonocytes Auto (Bld) [#/Vol]Ordered By: Sarai Georges on 15-11-0908Jyokhfabs (Bld) [#/Vol]0.7 10*3/uL0.0-0.8[facility] HospitalMonocytes/100 WBC Auto (Bld) Ordered By: Sarai Georges on 31-26-9523Aicoculio/100 WBC (Bld)7.2 %.[facility] HospitalNeutrophils Auto (Bld) [#/Vol]Ordered By: Sarai Georges on 28-05-2267Tubzwvvtspw (Bld) [#/Vol]6.9 10*3/uL1.8-7.7FDetwiler Memorial HospitalNeutrophils/100 WBC Auto (Bld)Ordered By: Sarai Georges on 79-95-0486Qnzgpqexdjp/100 WBC (Bld)73.2 %.[facility] HospitalNo Panel InformationOrdered By: Sarai Georges on 53-87-6754Frfdytoew GFR (CKD-EPI) > 60.0 mL/MinAultman Alliance Community HospitalPharmacy Creatinine Clearance (ChemN/AFDetwiler Memorial HospitalTotal Complement (CH50)>60 U/mL>41 [facility] HospitalComment on above:Age Male Female 1 - [...] to determine out of range values.Performed at: [employer] [id number] Director: Lucas Cooper PhD, Phone: [phone] erythrocytes [Presence] in Blood by Automated count Ordered By: Sarai Georges on 07-42-7197Uckjcdvzt RBC Auto Ql (Bld)0.1 /100{WBC} 0-0.5FDetwiler Memorial HospitalPlatelet mean volume Auto (Bld) [Entitic vol]Ordered By: Sarai Georges on 42-80-4478Tonnwozf mean volume (Bld) [Entitic vol]8.9 fL6.6-10.1FDetwiler Memorial HospitalPlatelets Auto (Bld) [#/Vol] Ordered By: Sarai Georges on 78-90-6096Dwfacwqtx (Bld) [#/Vol]201 10*3/uL 150-450[facility] HospitalProtein Auto test strip (U) [Mass/Vol] Ordered By: Sarai Georges on 85-69-1156Tofnkrx (U) [Mass/Vol]NegativeNegative [facility] HospitalRBC Auto (Bld) [#/Vol]Ordered By: Sarai Georges on 37-89-9151IPQ (Bld) [#/Vol]3.94 10*6/uL3.90-5.60[facility] Medical CenterSerum Corona extractable nuclear antigen (OPAL) antibody assay (units/volume)Ordered By: Sarai Georges on 31-74-6227Huqoa extractable nuclear Ab Qn (S)<0.2 AI0.0-0.9City Hospitalerum or plasma complement C3 measurement (mass/volume)Ordered By: Sarai Georges on 10-02-2022 Complement C3 [Mass/Vol]147 mg/nN34-377EeeobbpyqAultman Alliance Community HospitalComment on above:Performed at: [facility] [id number] Director: Lucas Cooper PhD, Phone: [phone] or plasma complement C4 measurement (mass/volume)Ordered By: Sarai Georges on 10-02-2022 Complement C4 [Mass/Vol]29 mg/xZ12-17HnmbvytbdCity Hospitalquamous epithelial cells detection in urine sediment by light microscopyOrdered By: Sarai Georges on 65-74-8230Encdmfvtuo cells.squamous LM Ql (Urine sed)None seen [HPF]0-2FDetwiler Memorial HospitalUrine appearanceOrdered By: Sarai Georges on 08-39-1235Wgxorjbvmg (U)ClearCleGlenbeigh Hospital Urine bacteria detection by automated methodOrdered By: Sarai Georges on 11-68-8824Lhbdoewl Auto Ql (U)None seenNone SeenAultman Alliance Community HospitalUrine colorOrdered By: Sarai Georges on 82-95-3264Igfwr (U)YellowUc West Chester HospitalUrine glucose measurement by automated test strip (mass/volume)Ordered By: Sarai Georges on 39-77-9238Fggfigg Auto test strip (U) [Mass/Vol]Normal mg/dLNormalA[facility] HospitalUrine hemoglobin detection by automated test stripOrdered By: Sarai Georges on 78-45-3090Whvthplsib Auto test strip Ql (U)NegativeNegOhio State Harding HospitalUrine leukocyte esterase detection by automated test stripOrdered By: Sarai Georges on 82-23-1647Jnvoxtlic esterase Auto test strip Ql (U) NegativeNegOhio State Harding HospitalUrine nitrite detection by automated test stripOrdered By: Sarai Georges on 77-81-6716Ebzohlo Auto test strip Ql (U)NegativeNegativeAultman Alliance Community HospitalUrobilinogen Auto test strip (U) [Mass/Vol]Ordered By: Sarai Georges on 91-05-4830Ogfqvapgseqp (U) [Mass/Vol]Normal mg/dLNormalAultman [facility] HospitalWBC Auto (Bld) [#/Vol]Ordered By: Sarai Georges on 21-28-1682IAN (Bld) [#/Vol]9.5 10*3/uL 4.1-10.5FDetwiler Memorial HospitalpH Auto test strip (U)Ordered By: Sarai Georges on 72-49-0589jQ (U)1.015 [pH]1.001-1.030[facility] HospitalpH (U)6.5 [pH]5.0-9.0[facility] HospitalRETICULOCYTE on 71-06-2973JGOGT4.90 %Critically high0.60-3.10The [facility] CenterComment on above:Performed By: #### RETIC #### [facility] [address] [place] [address] Dr. Tracy Eldridge B12 AND FOLATEon 90-60-0007Pshjmyxdd (Vitamin B12) [Mass/Vol] 436.0 pg/yVIoxmtx438.0-986.0The [facility] CenterComment on above:Performed By: #### B12FOL #### [facility] [address] [place] [address] Dr. Tracy HubbardFOLATE17.10 ng/mLNormal8.60-58.90The [facility] CenterComment on above:Performed By: #### B12FOL #### [facility] [address] [place] [address] Dr. Tracy BoyerC AUTO DIFFon 41-31-9963ZCSV #0.1 103/ulNormal0.0-0.1The [facility] CenterComment on above:Performed By: #### CBC #### [facility] [address] [place] [address] Dr. Tracy HubbardBasophils/100 WBC (Bld)0.7 %Normal0.2-2.0The [facility] Comment on above:Performed By: #### CBC #### [facility] [address] [place] [address] Dr. Tracy Hou #0.1 103/ulNormal0.0-0.7The [facility] Medical CenterComment on above: Performed By: #### CBC #### [facility] [address] [place] [address] Dr. Tracy Meehanosinophils/100 WBC (Bld)1.7 %Normal0.9-7.0The [facility] Comment on above:Performed By: #### CBC #### [facility] [address] [place] [address] Dr. Tracy Meehanrythrocyte distribution width (RBC) [Ratio]12.8 %Zovwae57.0-15.0 The [facility] CenterComment on above:Performed By: #### CBC #### [facility] [address] [place] [address] Dr. Tracy HubbardHematocrit (Bld) [Volume fraction]44.6 %Gdysbv28.0-54.0The [facility] CenterComment on above:Performed By: #### CBC #### [facility] [address] [place] [address] Dr. Tracy HubbradHemoglobin (Bld) [Mass/Vol]15.5 g/cLIoinky78.0-18.0The [facility] CenterComment on above:Performed By: #### CBC #### [facility] [address] [place] [address] Dr. Tracy Weston #0.03 10e3/ulNormal0.00-0.03The [facility] CenterComment on above:Performed By: #### CBC #### [facility] [address] [place] [address] Dr. Tracy Weston %0.4 %Normal0.0-0.5The [facility] Medical CenterComment on above: Performed By: #### CBC #### [facility] [address] [place] [address] Dr. Tracy Arellano #1.7 103/ulNormal1.2-3.8The [facility] CenterComment on above:Performed By: #### CBC #### [facility] [address] [place] [address] Dr. Tracy Nolandmphocytes/100 WBC (Bld)24.8 %Jotvww63.5-60.0The [facility] CenterComment on above:Performed By: #### CBC #### [facility] [address] [place] [address] Dr. Tracy Ba DIFF REQNONormalThe [facility] CenterComment on above: Performed By: #### CBC #### [facility] [address] [place] [address] Dr. Tracy Freedman (RBC) [Entitic mass]35.7 pgCritically high25.9-34.0The [facility] CenterComment on above:Performed By: #### CBC #### [facility] [address] [place] [address] Dr. Tracy Freedman (RBC) [Mass/Vol]34.8 g/sPDqlsuj77.9-35.2The [facility] CenterComment on above:Performed By: #### CBC #### [facility] [address] [place] [address] Dr. Tracy Ellis (RBC) [Entitic vol]102.8 fLCritically high80.0-94.0The [facility] CenterComment on above:Performed By: #### CBC #### [facility] [address] [place] [address] Dr. Tracy Bone #0.7 103/ulNormal0.3-0.8The [facility] CenterComment on above:Performed By: #### CBC #### [facility] [address] [place] [address] Dr. Tracy Tamayoocytes/100 WBC (Bld)9.8 %Normal1.7-12.0The [facility] Comment on above:Performed By: #### CBC #### [facility] [address] [place] [address] Dr. Tracy Randhawa #4.4 103/ulNormal1.4-6.5The [facility] CenterComment on above:Performed By: #### CBC #### [facility] [address] [place] [address] Dr. Tracy Gunterutrophils/100 WBC (Bld)62.6 %Tpdkfl99.0-75.0The [facility] CenterComment on above:Performed By: #### CBC #### [facility] [address] [place] [address] Dr. Tracy Archerlet mean volume (Bld) [Entitic vol]10.3 fLNormal9.5-13.5The [facility] CenterComment on above:Performed By: #### CBC #### [facility] [address] [place] [address] Dr. Tracy MurdockT182 103/moRwvnoq766-925Bys [facility] CenterComment on above: Performed By: #### CBC #### [facility] [address] [place] [address] Dr. Tracy ChowC4.34 106/ulCritically low4.70-6.10The [facility] CenterComment on above:Performed By: #### CBC #### [facility] [address] [place] [address] Dr. Tracy MejiaBC7.0 103/ulNormal4.0-11.0The [facility] CenterComment on above: Performed By: #### CBC #### [facility] [address] [place] [address] Dr. Tracy Rashid 35-23-2996MR [Catalytic activity/Vol]84 U/PSyunjt72-573Gug [facility] CenterComment on above:Performed By: #### CMP, CRP, TSH, LIPID, CK #### [facility] [address] [place] [address] Dr. Tracy Hunter 99-89-0717VMV [Mass/Vol]mg/LNormal<=1.0The [facility] CenterComment on above:Performed By: #### CMP, CRP, TSH, LIPID, CK #### [facility] [address] [address] [address] Tracy MorelID PROFILEon 97-63-4734RIHE-HDL RATIO NORMSRegional Medical CenterComment on above:Result Comment: 3.3 - 4.4 LOW RISK 4.4 - 7.1 AVERAGE RISK 7.1 - 11.0 MODERATE RISK >11.0 HIGH RISKPerformed By: #### CMP, CRP, TSH, LIPID, CK #### [facility] [address] [address] [address] Tracy HubbardCholesterol [Mass/Vol]145 mg/dLNormal<=200The [facility] Comment on above:Performed By: #### CMP, CRP, TSH, LIPID, CK #### [facility] [address] [address] [address] Tracy HubbardCholesterol in HDL [Mass/Vol]45 mg/uFSpmijf64-92VqtOhio Valley Surgical HospitalComment on above:Performed By: #### CMP, CRP, TSH, LIPID, CK #### [facility] [address] [address] [address] Tracy HubbardCholesterol in LDL [Mass/Vol]64.4 mg/dLUniversity Hospitals Parma Medical CenterComment on above:Performed By: #### CMP, CRP, TSH, LIPID, CK #### [facility] [address] [address] [address] Tracy Laraestermick.total/Cholesterol in HDL [Mass ratio]3.2 {ratio} NormalOhio Valley Surgical HospitalComment on above:Performed By: #### CMP, CRP, TSH, LIPID, CK #### [facility] [address] [place] [address] Dr. Tracy HubbardHDL NORMAL> or = 60 mg/dl - LOW CARDIOVASCULAR RISK <40 mg/dl - HIGH CARDIOVASCULAR RISKUniversity Hospitals Parma Medical CenterComment on above:Performed By: #### CMP, CRP, TSH, LIPID, CK #### [facility] [address] [address] [address] Tracy HubbardLDL CALC NORMALSEE [facility]ost[facility] Community HospitalComment on above:Result Comment: <100 mg/dl OPTIMAL 100 - 129 mg/dl NEAR OR ABOVE OPTIMAL 130 - 159 mg/dl BORDERLINE HIGH 160 - 189 mg/dl HIGH >190 mg/dl VERY HIGH Performed By: #### CMP, CRP, TSH, LIPID, CK #### [facility] [address] [place] [address] Dr. Tracy HubbardTriglyceride [Mass/Vol]178 mg/dLCritically high<=150The [facility] on above:Performed By: #### CMP, CRP, TSH, LIPID, CK #### [facility] [address] [place] [address] Dr. Tracy HubbardVLDL CALC35.6 mg/dLNormalThe [facility] on above: Performed By: #### CMP, CRP, TSH, LIPID, CK #### [facility] [address] [place] [address] Dr. Tracy HubbardPROChristina 14(COMP METB)on 40-72-6872Pqudoik [Mass/Vol]4.1 g/dLNormal 3.4-5.0The [facility] on above:Performed By: #### CMP, CRP, TSH, LIPID, CK #### [facility] [address] [place] [address] Dr. Tracy HubbardAlbumin/Globulin [Mass ratio]1.2 {ratio}NormalThe [facility] on above:Performed By: #### CMP, CRP, TSH, LIPID, CK #### [facility] [address] [place] [address] Dr. Tracy Hernández [Catalytic activity/Vol]66 U/WAvptgs49-072Noa [facility] on above:Performed By: #### CMP, CRP, TSH, LIPID, CK #### [facility] [address] [place] [address] Dr. Tracy Baird [Catalytic activity/Vol]44 U/EAwkkqe93-35Xot [facility] on above:Performed By: #### CMP, CRP, TSH, LIPID, CK #### [facility] [address] [place] [address] Dr. Tracy Lugo gap [Moles/Vol]12.3 mmol/LNormalOhio Valley Surgical Hospital Comment on above:Performed By: #### CMP, CRP, TSH, LIPID, CK #### [facility] [address] [address] [address] Tracy HubbardAST [Catalytic activity/Vol]26 U/EFktfyl16-70Zip [facility] CenterComment on above:Performed By: #### CMP, CRP, TSH, LIPID, CK #### [facility] [address] [address] [address] Tracy HubbardBilirubin [Mass/Vol]0.8 mg/dLNormal0.2-1.0The [facility] Comment on above:Performed By: #### CMP, CRP, TSH, LIPID, CK #### [facility] [address] [address] [address] Tracy uHbbardCalcium [Mass/Vol]8.9 mg/dLNormal8.5-10.1[facility] Comment on above:Performed By: #### CMP, CRP, TSH, LIPID, CK #### [facility] [address] [address] [address] Tracy HubbardChloride [Moles/Vol]103 mmol/JSggnno29-335OzkOhio Valley Surgical Hospital Comment on above:Performed By: #### CMP, CRP, TSH, LIPID, CK #### [facility] [address] [address] [address] Tracy HubbardCO2 [Moles/Vol]27.0 mmol/XCssvdo75.0-32.0The [facility] Comment on above:Performed By: #### CMP, CRP, TSH, LIPID, CK #### [facility] [address] [address] [address] Tracy HubbardCreatinine [Mass/Vol]1.04 mg/dLNormal0.70-1.30The [facility] CenterComment on above:Performed By: #### CMP, CRP, TSH, LIPID, CK #### [facility] [address] [address] [address] Molina ChangEGFR-AF TONGAN>60Normal>=60The Regional Medical Centerment on above:Performed By: #### CMP, CRP, TSH, LIPID, CK #### [facility] [address] [address] [address] Molina ChangEGFR-NON AF TONGAN>60Normal>=60The [facility] Medical CenterComment on above:Performed By: #### CMP, CRP, TSH, LIPID, CK #### [facility] [address] [place] [address] Dr. Tracy HubbardGlobulin (S) [Mass/Vol]3.4 g/dLNormalThe [facility] Medical CenterComment on above:Performed By: #### CMP, CRP, TSH, LIPID, CK #### [facility] [address] [place] [address] Dr. Tracy HubbardGlucose [Mass/Vol]124 mg/dLCritically liwy32-469Mqb Regional Medical Centerment on above:Performed By: #### CMP, CRP, TSH, LIPID, CK #### [facility] [address] [place] [address] Dr. Tracy HubbardPotassium [Moles/Vol]4.3 mmol/LNormal3.5-5.1The [facility] Comment on above:Performed By: #### CMP, CRP, TSH, LIPID, CK #### [facility] [address] [place] [address] Dr. Tracy HubbardProtein [Mass/Vol]7.5 g/dLNormal6.4-8.2The [facility] Comment on above:Performed By: #### CMP, CRP, TSH, LIPID, CK #### [facility] [address] [place] [address] Dr. Tracy HubbardSodium [Moles/Vol]138 mmol/SEdyifz783-619Ciz [facility] Comment on above:Performed By: #### CMP, CRP, TSH, LIPID, CK #### [facility] [address] [place] [address] Dr. Tracy HubbardUrea nitrogen [Mass/Vol]16.0 mg/dLNormal7.0-18.0The [facility]ha HospitalComment on above:Performed By: #### CMP, CRP, TSH, LIPID, CK #### [facility] [address] [address] [address] Tracy HubbardUrea nitrogen/Creatinine [Mass ratio]15.4 mg/mgNormalThe [facility] CenterComment on above:Performed By: #### CMP, CRP, TSH, LIPID, CK #### [facility] [address] [address] [address] Tracy HubbardSED RATE WESTERGRENon 67-32-4178IFX RATE9 mm/hrNormal<=20The [facility] CenterComment on above:Performed By: #### SEDR #### [facility] [address] [address] [address] Tracy Mai 73-22-3349UWW3.856 uIU/mLCritically high0.358-3.740The [facility] CenterComment on above:Performed By: #### CMP, CRP, TSH, LIPID, CK #### [facility] [address] [address] [address] Tracy HubbardXR hip RT min 2V(w/wo pelvis)*on 89-39-0702XO hip RT min 2V(w/wo pelvis)*[facility] [employer] Other XR hip RT min 2V(w/wo pelvis)*[facility] [employer] Other XR hip RT min 2V(w/wo pelvis)*[address] [place] [address] [employer] Other XR hip RT min 2V(w/wo pelvis)*[address] [employer] Other XR hip RT min 2V(w/wo pelvis)*[facility] [employer] Other XR hip RT min 2V(w/wo pelvis)*[facility] [employer] Other XR hip RT min 2V(w/wo pelvis)*Patient: Esme Kaminski MR#: [id number] [employer] Other XR hip RT min 2V(w/wo pelvis)*7635[facility] [employer] Other XR hip RT min 2V(w/wo pelvis)*: 1960 Acct:[id number] [employer] Other XR hip RT min 2V(w/wo pelvis)*Age/Sex: 61 / M ADM Date: 04/12/22[place] [employer] Other XR hip RT min 2V(w/wo pelvis)*[place] [facility] [place]: Type: [facility] [employer] Other XR hip RT min 2V(w/wo pelvis)*Attending Dr: Jonathan Samano [email or web address] Other XR hip RT min 2V(w/wo pelvis)*Copies to: Jonathan Samano MDLeadwood [employer] Other XR hip RT min 2V(w/wo pelvis)*Ordering Provider: Jonathan Samano MDLeadwood [employer] Other XR hip RT min 2V(w/wo pelvis)*Date of Service: 04/12/22[place] [employer] Other XR hip RT min 2V(w/wo pelvis)* XR/XR hip RT min 2V(w/wo pelvis)*: Right hip painLeadwood [employer] Other XR hip RT min 2V(w/wo pelvis)*RIGHT HIP - 2 views: [employer] Other XR hip RT min 2V(w/wo pelvis)*CLINICAL HISTORY: Low back pain that radiates to right hip for years. No known injury.[employer] Other XR hip RT min 2V(w/wo pelvis)*COMPARISON: [facility] [employer] Other XR hip RT min 2V(w/wo pelvis)*FINDINGS: Moderate degenerative changes of the right hip without acute bony process. Left hipLeadwood [employer] Other XR hip RT min 2V(w/wo pelvis)*prosthesis is in place. [employer] Other XR hip RT min 2V(w/wo pelvis)* XR/XR hip RT min 2V(w/wo pelvis)*[employer] Other XR hip RT min 2V(w/wo pelvis)*IMPRESSION:[employer] Other XR hip RT min 2V(w/wo pelvis)*MODERATE DEGENERATIVE CHANGES OF THE RIGHT HIP WITHOUT ACUTE BONY PROCESS..[employer] Other XR hip RT min 2V(w/wo pelvis)*Impression dictated by: Alex Castro Jr., D.O.04/12/2022 12:57 PMNreynolds [facility] [employer] Other XR hip RT min 2V(w/wo pelvis)*Dictation Location: [id number] [employer] Other XR hip RT min 2V(w/wo pelvis)*Transcribed By: GWEN 04/12/22 [employer] Other XR hip RT min 2V(w/wo pelvis)*Dictated By: Alex Castro Jr, DO 04/12/22 [employer] Other XR hip RT min 2V(w/wo pelvis)*Signed By:[employer] Other XR hip RT min 2V(w/wo pelvis)*04/12/22 [employer] Other XR hand RT min 3V*on 01-85-7801QD hand RT min 3V* [facility] [employer] Other XR hand RT min 3V*[facility] [employer] Other XR hand RT min 3V*[address] VargasLeadwood [employer] Other XR hand RT min 3V*DILIA Wing [address]Hetjv [employer] Other XR hand RT min 3V*XRay ReportLeadwood [employer] Other XR hand RT min 3V*SignedLeadwood [employer] Other XR hand RT min 3V*Patient: Esme Kaminski MR#: [id number] [employer] Other XR hand RT min 3V*76[address] [employer] Other XR hand RT min 3V*: 1960 Acct:[id number] [employer] Other XR hand RT min 3V*Age/Sex: 61 / M ADM Date: 02/15/22 [place] [employer] Other XR hand RT min 3V*Loc[place] [facility] [place] Room: Type: [facility] [employer] Other XR hand RT min 3V*Attending Dr: Chio Nichole MD [place] [employer] Other XR hand RT min 3V*Copies to: Chio Nichole [facility] [employer] Other XR hand RT min 3V*Ordering Provider: Chio Nichole MDInterior Define [employer] Other XR hand RT min 3V*Date of Service: 02/15/22[place] [employer] Other XR hand RT min 3V* XR/XR hand RT min 3V*: Right hand painM[employer] Other XR hand RT min 3V*4 viewsRIGHT hand plain filmLeadwood [employer] Other XR hand RT min 3V*COMPARISON:05/23/21[place] [employer] Other XR hand RT min 3V*HISTORY:3rd metacarpal phalangeal joint pain.[facility] [employer] Other XR hand RT min 3V*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 Mild interphalangeal degenerative changes. 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.[facility] [employer] Other XR hand RT min 3V*Impression dictated by: Matt Ferrell M.D.02/15/2022 4:53 [facility] [employer] Other XR hand RT min 3V*Dictation Location: [address] [employer] Other XR hand RT min 3V*Transcribed By: GWEN 02/15/[address] [place] [address] [employer] Other XR hand RT min 3V*Dictated By: Matt Ferrell DO 02/15/[address] [place] [address] [employer] Other XR hand RT min 3V*Signed By:[employer] Other XR hand RT min 3V*02/15/[address] [place] [address] [employer] Other XR hip LT min 2V(w/wo pelvis)*on 16-11-4660XL hip LT min 2V(w/wo pelvis)*[facility] [employer] Other XR hip LT min 2V(w/wo pelvis)*[facility] [employer] Other XR hip LT min 2V(w/wo pelvis)*[address] [place] [address] [employer] Other XR hip LT min 2V(w/wo pelvis)*DILIA Wing [address]Sxtsn [employer] Other XR hip LT min 2V(w/wo pelvis)*XRay ReportLeadwood [employer] Other XR hip LT min 2V(w/wo pelvis)*[facility] [employer] Other XR hip LT min 2V(w/wo pelvis)*Patient: Esme Kaminski MR#: [id number] [employer] Other XR hip LT min 2V(w/wo pelvis)*7635[place] [employer] Other XR hip LT min 2V(w/wo pelvis)*: 1960 Acct:[id number] Other XR hip LT min 2V(w/wo pelvis)*Age/Sex: 60 / M ADM Date: 09/28/21[place] [employer] Other XR hip LT min 2V(w/wo pelvis)*Loc: [facility] Room: Type: [facility] [employer] Other XR hip LT min 2V(w/wo pelvis)*Attending Dr: Sarai Mendez II [email or web address] Other XR hip LT min 2V(w/wo pelvis)*Copies to: Sarai Mendez MDIceotope Other XR hip LT min 2V(w/wo pelvis)*Ordering Provider: Sarai Mendez MDInterior Define [employer] Other XR hip LT min 2V(w/wo pelvis)*Date of Service: 09/28/21[place] [employer] Other XR hip LT min 2V(w/wo pelvis)* XR/XR hip LT min 2V(w/wo pelvis)*: S/P total left hip arthroplasty [employer] Other XR hip LT min 2V(w/wo pelvis)*2 views LEFT hip single view pelvisplain filmLeadwood [employer] Other XR hip LT min 2V(w/wo pelvis)*COMPARISON:08/17/21[place] [employer] Other XR hip LT min 2V(w/wo pelvis)*HISTORY:Status post LEFT total hip arthroplastyLeadwood [employer] Other XR hip LT min 2V(w/wo pelvis)*No fracture, dislocation or focal soft tissue abnormality seen.No hardware failure or looseningLeadwood [employer] Other XR hip LT min 2V(w/wo pelvis)*identified.[employer] Other XR hip LT min 2V(w/wo pelvis)* XR/XR hip LT min 2V(w/wo pelvis)*[employer] Other XR hip LT min 2V(w/wo pelvis)*IMPRESSION:Stable LEFT hip arthroplasty.[employer] Other XR hip LT min 2V(w/wo pelvis)*Impression dictated by: Matt Ferrell M.D.09/28/2021 1:11 [facility] [employer] Other XR hip LT min 2V(w/wo pelvis)*Dictation Location: [id number] [employer] Other XR hip LT min 2V(w/wo pelvis)*Transcribed By: PWS 09/28/21 [facility] min 2V(w/wo pelvis)*Dictated By: Matt Ferrell DO 09/28/21 [facility] Other XR hip LT min 2V(w/wo pelvis)*Signed By:[employer] Other XR hip LT min 2V(w/wo pelvis)*09/28/21 [facility]11[facility] [employer] Other Laboratory - Hematology and Cell countson 06-02-2009 Lymphocytes/100 WBC (Bld)14 %[facility] CenterNeutrophils/100 WBC (Bld)12 %0 - 25 %[facility] ClinicNo Panel Informationon 04-16-0747Jinkqse, SFSlightly turbid AbnormalCLEARCleveland ClinicColor, SFSlightly bloodyAbnormalYELHarrison Clinic Macro%, SF26 %[facility] ClinicMono%, SF24 %[facility] Medical CenterRBC, EF08525 /uL [facility] ClinicReac%, SF6 %[facility] ClinicSite, SFUnknownCmagruder memorial hospitaland ClinicSlide Number [id number] ClinicSupernatant Clarity, SFUnable to assay. Quantity not sufficient.AbnormalCLEARCleveland ClinicSupernatant Color, SFUnable to assay. Quantity not sufficient.AbnormalYELKettering Health – Soin Medical Centerynovial CL%18 % [facility] Medical Centerynovial CommentCount may be inaccurate due to Clumped on chamber Cellular disintegrationKettering Health – Soin Medical Centerynovial Pathologist InterpretationTest Not IndicatedCleElyria Memorial HospitalTotal Nucleated Cells, SF200 /uLOhiohealth Grant Medical Center Vital Signs Date TimeVital SignValuePerforming BbfjfszfkSbqnerlr52-01-3917 23:00-0500 Diastolic blood eqslcmpg48 mm[Hg]Vitaliy [employer] DO Work Phone: [facility]11-11-2025 23:00-0500 Heart rate72 /minBenjamin Ball DO Work Phone: [facility]11-11-2025 23:00-0500 Respiratory rate20 /minBenjamin Ball DO Work Phone: [facility]11-11-2025 23:00-0500 SaO2% (BldA) [Mass fraction]98 %Vitaliy Ball DO Work Phone: [facility]11-11-2025 23:00-0500 Systolic blood tjygwjhj212 mm[Hg]Vitaliy Ball DO Work Phone: [facility]11-11-2025 17:18-0500 Body bduafv06.95 cmBenjamin Ball DO Work Phone: 1419)[address] [place], [place] 9531811-11-2025 17:18-0500 Body jabpnz641 kgBenjamin Ball DO Work Phone: 1419)[address] [place], [place] 9531811-11-2025 17:12-0500 Body tdvwbpbleje78 [degF]Vitaliy Ball DO Work Phone: 1(419)[address] [place], [place] 9531811-11-2025 15:30-0500 Body ymzzyy155.8 cmBenjamin Ball DO Work Phone: 1(419)[address] [place], [place] 9531811-11-2025 15:30-0500 Body mass index (BMI) [Ratio]31.7 kg/l1Bnidhthk Ball DO Work Phone: 1(419)[address] [place], [place] 9531811-11-2025 15:30-0500 Body egpsyi097.24 kgBenjamin Ball DO Work Phone: 1(419)[address] [place], [place] 9531811-11-2025 15:30-0500 Diastolic blood cexcbzgi65 mm[Hg]Vitaliy Ball DO Work Phone: 1(419)[address] [place], [place] 9531811-11-2025 15:30-0500 Heart rate84 /minBenjamin Ball DO Work Phone: 1(419)[address] [place], [place] 9531811-11-2025 15:30-0500 Respiratory rate14 /minBenjamin Ball DO Work Phone: 1(419)[address] [place], [place] 9531811-11-2025 15:30-0500 SaO2% (BldA) [Mass fraction]96 %Vitaliy Ball DO Work Phone: 1(419)[address] [place], [place] 9531811-11-2025 15:30-0500 Systolic blood gjfyufae554 mm[Hg]Vitaliy Ball DO Work Phone: 1(419)[address] [place], [place] 9531810-27-2025 13:55-0400 Body fkvowe785.8 cmBenjamin Ball DO Work Phone: 1419)[address] [place], [place] 9531810-27-2025 13:55-0400 Body mass index (BMI) [Ratio]31 kg/c9Xrfnvxsj Ball DO Work Phone: 1(766)[address] [place], [place] 9531810-27-2025 13:55-0400 Body kuyglohvguh27.6 [degF]Vitaliy Ball DO Work Phone: 1419)[address] [place], [place] 9531810-27-2025 13:55-0400 Body .14 kgBenjamin Ball DO Work Phone: 1419)[address] [place], [place] 9531810-27-2025 13:55-0400 Diastolic blood imymsutm53 mm[Hg]Vitaliy Ball DO Work Phone: [address] [place], [place] 9531810-27-2025 13:55-0400 Heart rate85 /minBenjamin Ball DO Work Phone: [address] [place], [place] 9531810-27-2025 13:55-0400 SaO2% (BldA) [Mass fraction]97 %Vitaliy Ball DO Work Phone: 1419)[address] [place], [place] 9531810-27-2025 13:55-0400 Systolic blood ykajwbdy761 mm[Hg]Vitaliy Ball DO Work Phone: 1(706)[address] [place], [place] 9531810-24-2025 08:08-0400 Diastolic blood lhcrysrs44 mm[Hg]Diogo Edge MD Work Phone: 1(216)[address] [place], [place] 8773510-24-2025 08:08-0400 Heart rate69 /Sisi Edge MD Work Phone: 1(216)[address] [place], [place] 8773510-24-2025 08:08-0400 Respiratory rate17 /Sisi Edge MD Work Phone: 1(216)[address] [place], [place] 8773510-24-2025 08:08-0400 SaO2% (BldA) [Mass fraction]97 %Diogo Edge MD Work Phone: 1216)[address] [place], [place] 8773510-24-2025 08:08-0400 Systolic blood uprgnhvo790 mm[Hg]Diogo Edge MD Work Phone: [phone])844-[address] [place], [place] 1990210-24-2025 02:15-0400 Body .01 [degF]Diogo Edge MD Work Phone: 1216)2-[address] [place], [place] 1990210-24-2025 01:41-0400 Body aefcbv483.8 Sandra Edge MD Work Phone: 1(216)[address]10-24-2025 01:41-0400 Body mass index (BMI) [Ratio]30.42 kg/m2Diogo Edge MD Work Phone: 1216)[address]10-24-2025 01:41-0400 Body gxnywp70.16 kgDiogo Edge MD Work Phone: 1216)[address]10-23-2025 22:39-0400 Diastolic blood jglcobuu69 mm[Hg]Vitaliy Ball DO Work Phone: 1(273)466-09[facility]10-23-2025 22:39-0400 Heart rate77 /minBenjamin Ball DO Work Phone: 1(201)092-[address] [place], [place] 3182310-23-2025 22:39-0400 Respiratory rate20 /minBenjamin Ball DO Work Phone: 1(753)323-74[facility]10-23-2025 22:39-0400 SaO2% (BldA) [Mass fraction]96 %Vitaliy Ball DO Work Phone: 1(487)364-[facility]10-23-2025 22:39-0400 Systolic blood mm[Hg]Vitaliy Ball DO Work Phone: 1(803)208-87[facility]10-23-2025 17:41-0400 Body bbosek899.8 cmBenjamin Ball DO Work Phone: 1(947)468-70[facility]10-23-2025 17:41-0400 Body enelyjqzjdp63.2 [degF]Vitaliy Ball DO Work Phone: 1(517)190-99[facility]10-23-2025 17:41-0400 Body .95 kgBenjamin Ball DO Work Phone: 1(419)[address] [place], [place] 9531810-21-2025 21:40-0400 Body fyyxha645.8 cmBenjamin Ball DO Work Phone: 1419)[address] [place], [place] 9531810-21-2025 21:40-0400 Body hetzag29.06 kgBenjamin Ball DO Work Phone: 1419)[address] [place], [place] 9531810-06-2025 14:31-0400 Body qgdjoj072.07 cmBenjamin Ball DO Work Phone: 1(419)[address] [place], [place] 9531810-06-2025 14:31-0400 Body mass index (BMI) [Ratio]30.4 kg/o6Lyifygwj Ball DO Work Phone: 1419)[address] [place], [place] 9531810-06-2025 14:31-0400 Body bgoynt22.74 kgBenjamin Ball DO Work Phone: 1419)[address] [place], [place] 9531810-06-2025 14:31-0400 Diastolic blood skujjtyp17 mm[Hg]Vitaliy Ball DO Work Phone: 1(419)[address] [place], [place] 9531810-06-2025 14:31-0400 Heart rate80 /minBenjamin Ball DO Work Phone: 1419)[address] [place], [place] 9531810-06-2025 14:31-0400 Respiratory rate12 /minBenjamin Ball DO Work Phone: 1419)[address] [place], [place] 9531810-06-2025 14:31-0400 Systolic blood cfzhmolh111 mm[Hg]Vitaliy Ball DO Work Phone: 1(419)[address] [place], [place] 9531810-01-2025 13:30-0400 Body odobxs083.07 cmBenjamin Ball DO Work Phone: 1419)[address] [place], [place] 9531810-01-2025 13:30-0400 Body mass index (BMI) [Ratio]31.3 kg/b9Otapozsv Ball DO Work Phone: 1419)[address] [place], [place] 9531810-01-2025 13:30-0400 Body yggrao757.41 kgBenjamin Ball DO Work Phone: 1(734)536-[address] [place], [place] 3182310-01-2025 13:30-0400 Diastolic blood udluutuh90 mm[Hg]Vitaliy Ball DO Work Phone: 1(227)[address]10-01-2025 13:30-0400 Heart rate61 /minBenjamin Ball DO Work Phone: 1419)[address]10-01-2025 13:30-0400 Systolic blood xcnzysdi317 mm[Hg]Vitaliy Ball DO Work Phone: 1(261)[address]09-19-2025 09:43-0400 Body wuxfml637.07 cmBenjamin Ball DO Work Phone: 1(651)[address]09-19-2025 09:43-0400 Body mass index (BMI) [Ratio]31.3 kg/k5Veoakvdo Ball DO Work Phone: 1(198)[address] [place], [place] 9531809-19-2025 09:43-0400 Body .41 kgBenjamin Ball DO Work Phone: 1(791)[address] [place], [place] 9531809-19-2025 09:43-0400 Diastolic blood mm[Hg]Vitaliy Ball DO Work Phone: 1(865)[address] [place], [place] 9531809-19-2025 09:43-0400 Heart rate76 /minBenjamin Ball DO Work Phone: 1(509)[address] [place], [place] 9531809-19-2025 09:43-0400 Respiratory rate12 /minBenjamin Ball DO Work Phone: 1(587)[address]09-19-2025 09:43-0400 Systolic blood pzifswyl308 mm[Hg]Vitaliy Ball DO Work Phone: 1(125)[address]09-15-2025 11:25-0400 Body wdikri255.1 cmAntonio Steele MD Work Phone: [facility]09-15-2025 11:25-0400 Body mass index (BMI) [Ratio]31.69 kg/e6Vazrozv Traboulssi MD Work Phone: [facility]09-15-2025 11:25-0400 Body jkvqky676.61 kgAntonio Steele MD Work Phone: [address] [place], [place] 3675809-15-2025 11:25-0400 Diastolic blood mgbobygs48 mm[Hg]Antonio Steele MD Work Phone: [address] [place], [place] 3675809-15-2025 11:25-0400 Heart rate62 /Giuliano Steele MD Work Phone: [address] [place], [place] 3675809-15-2025 11:25-0400 Systolic blood uvklqyhi306 mm[Hg]Antonio Steele MD Work Phone: [facility]09-08-2025 14:53-0400 Body reixaa358.8 cmJenniferjay [facility]09-08-2025 14:53-0400Body mass index (BMI) [Ratio]32.14 kg/o2Cmnmqp [facility]09-08-2025 14:53-0400Body juczsc444.61 kgJenniferjay Harleyrow [facility]09-08-2025 14:53-0400Diastolic blood hmcfxcbu55 mm[Hg]Keila Radha [facility]09-08-2025 14:53-0400 Heart rate74 /minKeila Garcia [facility]09-08-2025 14:53-0400Systolic blood ikuqzjkr828 mm[Hg]Keila Garcia [facility]09-05-2025 08:00-0400Diastolic blood apyvyrqf48 mm[Hg]Vitaliy Ball DO Work Phone: [facility]09-05-2025 08:00-0400 Heart rate77 /minBenjamin Ball DO Work Phone: [facility]09-05-2025 08:00-0400 Respiratory rate16 /minBenjamin Ball DO Work Phone: 1(553)170-11[facility]09-05-2025 08:00-0400 SaO2% (BldA) [Mass fraction]98 %Vitaliy Ball DO Work Phone: 1(762)[address] [place], [place] 9531809-05-2025 08:00-0400 Systolic blood eltckggs845 mm[Hg]Vitaliy Ball DO Work Phone: [address] [place], [place] 9531809-05-2025 06:00-0400 Body bjqpij39 kgBenjamin Ball DO Work Phone: 1(928)[address] [place], [place] 9531809-05-2025 04:00-0400 Body hrmqvzohqmd68.9 [degF]Vitaliy Ball DO Work Phone: 1(195)[address] [place], [place] 9531809-04-2025 12:53-0400 Body rnsjra565.07 cmBenjamin Ball DO Work Phone: 1(003)[address] [place], [place] 9531808-13-2025 12:44-0400 Body mbiafv932.8 cmAntonio Steele MD Work Phone: 1(941)[address]08-13-2025 12:44-0400 Body mass index (BMI) [Ratio]32.71 kg/x4MehcqdtAntonio Steele MD Work Phone: 1(901)[address]08-13-2025 12:44-0400 Body idbrsh118.42 kgAntonio Steele MD Work Phone: 1(472)[address]08-13-2025 12:44-0400 Diastolic blood uhznvslz90 mm[Hg]Antonio Steele MD Work Phone: 1(352)[address] [place], [place] 3056708-13-2025 12:44-0400 Heart rate98 /Giuliano Steele MD Work Phone: 1(430)[address]08-13-2025 12:44-0400 Systolic blood fmyqrggt728 mm[Hg]Antonio Steele MD Work Phone: 1(339)957-[address] [place], [place] 3056707-17-2025 14:28-0400 Diastolic blood exznwtvw93 mm[Hg]Vitaliy Ball DO Work Phone: 1(435)[address] [place], [place] 9531807-17-2025 14:28-0400 Systolic blood ijbhavho311 mm[Hg]Vitaliy Ball DO Work Phone: [address] [place], [place] 9531807-02-2025 13:58-0400 Body amnewy926.8 cmBenjamin Ball DO Work Phone: 1419)[address] [place], [place] 9531807-02-2025 13:58-0400 Body mass index (BMI) [Ratio]32 kg/i0Eaytfila Ball DO Work Phone: 1419)[address] [place], [place] 9531807-02-2025 13:58-0400 Body hmqcus273.15 kgBenjamin Ball DO Work Phone: 1419)[address] [place], [place] 9531807-02-2025 13:58-0400 Diastolic blood skequsbc60 mm[Hg]Vitaliy Ball DO Work Phone: 1419)[address] [place], [place] 9531807-02-2025 13:58-0400 Heart vxfm684 /minBenjamin Ball DO Work Phone: 1(471)[address] [place], [place] 9531807-02-2025 13:58-0400 Respiratory rate12 /minBenjamin Ball DO Work Phone: 1(868)[address] [place], [place] 9531807-02-2025 13:58-0400 SaO2% (BldA) [Mass fraction]98 %Vitaliy Ball DO Work Phone: 1(409)[address] [place], [place] 9531807-02-2025 13:58-0400 Systolic blood rcnnleiv430 mm[Hg]Vitaliy Ball DO Work Phone: 1(376)[address] [place], [place] 9531806-25-2025 11:14-0400 Diastolic blood xcffakgg20 mm[Hg]Vitaliy Ball DO Work Phone: 1(747)[address] [place], [place] 9531806-25-2025 11:14-0400 Heart rate97 /minBenjamin Ball DO Work Phone: 1(066)[address] [place], [place] 9531806-25-2025 11:14-0400 Respiratory rate18 /minBenjamin Ball DO Work Phone: 1419)[address] [place], [place] 9531806-25-2025 11:14-0400 SaO2% (BldA) [Mass fraction]95 %Vitaliy Ball DO Work Phone: 1419)[address] [place], [place] 9531806-25-2025 11:14-0400 Systolic blood ddvhcnfa289 mm[Hg]Vitaliy Ball DO Work Phone: 1(419)[address] [place], [place] 9531806-25-2025 11:05-0400 Body dtevjx320.8 cmBenjamin Ball DO Work Phone: 1(419)[address] [place], [place] 9531806-25-2025 08:25-0400 Body iqtrhwspavx39.9 [degF]Vitaliy Ball DO Work Phone: 1419)[address] [place], [place] 9531806-25-2025 05:45-0400 Body dieikt83.5 kgBenjamin Ball DO Work Phone: 1(419)[address] [place], [place] 9531806-23-2025 17:10-0400 Diastolic blood xtxqwaai85 mm[Hg]Vitaliy Ball DO Work Phone: 1(419)[address] [place], [place] 9531806-23-2025 17:10-0400 Heart rate84 /minBenjamin Ball DO Work Phone: 1419)[address] [place], [place] 9531806-23-2025 17:10-0400 SaO2% (BldA) [Mass fraction]98 %Vitaliy Ball DO Work Phone: 1(419)[address] [place], [place] 9531806-23-2025 17:10-0400 Systolic blood ejuvjiot273 mm[Hg]Vitaliy Ball DO Work Phone: 1419)[address] [place], [place] 9531806-23-2025 16:15-0400 Body cftfgrnnqge68.7 [degF]Vitaliy Ball DO Work Phone: 1(419)[address] [place], [place] 9531806-23-2025 15:14-0400 Respiratory rate17 /minBenjamin Ball DO Work Phone: 1419)[address] [place], [place] 9531806-23-2025 03:31-0400 Body swcusf332.34 cmBenjamin Ball DO Work Phone: 1(168)[address]06-23-2025 03:31-0400 Body cerkpk936.2 kgBenjamin Ball DO Work Phone: 1(572)[address]06-03-2025 12:50-0400 Diastolic blood ofnatjmr84 mm[Hg]Vitaliy Ball DO Work Phone: 1(633)52[address]06-03-2025 12:50-0400 Heart rate80 /minBenjamin Ball DO Work Phone: 1(002)[address]06-03-2025 12:50-0400 Respiratory rate25 /minBenjamin Ball DO Work Phone: 1(871)8[address]06-03-2025 12:50-0400 SaO2% (BldA) [Mass fraction]96 %Vitaliy Ball DO Work Phone: 1(612)[address]06-03-2025 12:50-0400 Systolic blood eonaqxxv52 mm[Hg]Vitaliy Ball DO Work Phone: 1(265)[address] [place], [place] 9531806-03-2025 10:10-0400 Inhaled oxygen flow rate3 L/minBenjamin Ball DO Work Phone: 1(263)[address] [place], [place] 9531806-02-2025 12:00-0400 Body drltro534.07 cmBenjamin Ball DO Work Phone: 1(040)[address]06-02-2025 12:00-0400 Body dgrsut120 kgBenjamin Ball DO Work Phone: 1(341)[address]05-16-2025 08:59-0400 Body iglvsq012.1 cmAntonio Steele MD Work Phone: [facility]05-16-2025 08:59-0400 Body mass index (BMI) [Ratio]32.82 kg/x6XdclzqlAntonio Steele MD Work Phone: [facility]05-16-2025 08:59-0400 Body iiehap280.23 kgAntonio Steele MD Work Phone: [facility]05-16-2025 08:59-0400 Diastolic blood yqduqikn01 mm[Hg]Antonio Steele MD Work Phone: [facility]05-16-2025 08:59-0400 Heart rate95 /Giuliano Steele MD Work Phone: [facility]05-16-2025 08:59-0400 Systolic blood akgbgvuv877 mm[Hg]Antonio Steele MD Work Phone: [facility]05-13-2025 16:08-0400 Body fsxego577.8 cmBenjamin Ball DO Work Phone: 1(395)882-[address] [place], [place] 3182305-13-2025 16:08-0400 Body mass index (BMI) [Ratio]32.8 kg/x0Qxkofezy Ball DO Work Phone: 1(756)618-[address] [place], [place] 3182305-13-2025 16:08-0400 Body yybdzx074 kgBenjamin Ball DO Work Phone: 1(380)[address]05-13-2025 16:08-0400 Diastolic blood iagexgml09 mm[Hg]Vitaliy Ball DO Work Phone: 1(984)973-[address] [place], [place] 3182305-13-2025 16:08-0400 Heart rate98 /minBenjamin Ball DO Work Phone: 1(829)491-[address] [place], [place] 3182305-13-2025 16:08-0400 Respiratory rate12 /minBenjamin Ball DO Work Phone: 1(721)882-[address] [place], [place] 3182305-13-2025 16:08-0400 SaO2% (BldA) [Mass fraction]97 %Vitaliy Ball DO Work Phone: 1(564)593-[address] [place], [place] 3182305-13-2025 16:08-0400 Systolic blood jabyhmvm30 mm[Hg]Vitaliy Ball DO Work Phone: 1(213)142-[address] [place], [place] 3182305-07-2025 11:52-0400 Diastolic blood iivwutej48 mm[Hg]Vitaliy Ball DO Work Phone: 1(370)857-[address] [place], [place] 3182305-07-2025 11:52-0400 Heart rate85 /minBenjamin Ball DO Work Phone: 1(424)380-[address] [place], [place] 3182305-07-2025 11:52-0400 Respiratory rate18 /minBenjamin Ball DO Work Phone: 1(870)121-[address] [place], [place] 3182305-07-2025 11:52-0400 SaO2% (BldA) [Mass fraction]95 %Vitaliy Ball DO Work Phone: 1(428)[address]05-07-2025 11:52-0400 Systolic blood gadiprcd338 mm[Hg]Vitaliy Ball DO Work Phone: 1(258)[address]05-07-2025 07:33-0400 Body mthvaxvsqsi29.5 [degF]Vitaliy Ball DO Work Phone: 1(272)[address]05-07-2025 05:12-0400 Body iutxtb814.5 kgBenjamin Ball DO Work Phone: 1(140)[address] [place], [place] 9531805-06-2025 15:39-0400 Body .8 cmBenjamin Ball DO Work Phone: 1(544)[address] [place], [place] 9531805-05-2025 11:49-0400 Diastolic blood urbnfxwy32 mm[Hg]Vitaliy Ball DO Work Phone: 1(009)719-[address] [place], [place] 3182305-05-2025 11:49-0400 Heart pxfu564 /minBenjamin Ball DO Work Phone: 1(471)081-[address] [place], [place] 3182305-05-2025 11:49-0400 Systolic blood skwimojw832 mm[Hg]Vitaliy Ball DO Work Phone: 1(079)624-[address] [place], [place] 3182305-05-2025 11:44-0400 Respiratory rate16 /minBenjamin Ball DO Work Phone: 1(192)541-[address] [place], [place] 3182305-05-2025 11:44-0400 SaO2% (BldA) [Mass fraction]91 %Vitaliy Ball DO Work Phone: 1419)[address] [place], [place] 9531805-05-2025 10:03-0400 Body .8 cmBenjamin Ball DO Work Phone: 1(419)[address] [place], [place] 9531805-05-2025 10:03-0400 Body usucimjhcxo00.1 [degF]Vitaliy Ball DO Work Phone: 1(419)[address] [place], [place] 9531805-05-2025 10:03-0400 Body pyszrt696.9 kgBenjamin Ball DO Work Phone: 1419)[address] [place], [place] 9531804-30-2025 12:00-0400 Body issryi835.8 cmBenjamin Ball DO Work Phone: 1(419)[address] [place], [place] 9531804-30-2025 12:00-0400 Body mass index (BMI) [Ratio]33.5 kg/e2Qphxvpmq Ball DO Work Phone: 1419)[address] [place], [place] 9531804-30-2025 12:00-0400 Body rvuqhe468.14 kgBenjamin Ball DO Work Phone: 1(817)[address] [place], [place] 9531804-25-2025 11:09-0400 Body vnyoml824.8 cmBenjamin Ball DO Work Phone: [phone])[address] [place], [place] 9531804-25-2025 11:09-0400 Body homxrcwepkt91 [degF]Vitaliy Ball DO Work Phone: 1(419)[address] [place], [place] 9531804-25-2025 11:09-0400 Body aeggkp231.7 kgBenjamin Ball DO Work Phone: [phone])[address] [place], [place] 9531804-25-2025 11:09-0400 Diastolic blood mm[Hg]Vitaliy Ball DO Work Phone: [phone])[address] [place], [place] 9531804-25-2025 11:09-0400 Heart rate61 /minBenjamin Ball DO Work Phone: [phone] [place], [place] 9531804-25-2025 11:09-0400 Respiratory rate18 /minBenjamin Ball DO Work Phone: 1(419)[address] [place], [place] 9531804-25-2025 11:09-0400 SaO2% (BldA) [Mass fraction]95 %Vitaliy Ball DO Work Phone: 1(419)[address] [place], [place] [address]531804-25-2025 11:09-0400 Systolic blood guhqqcln792 mm[Hg]Vitaliy Ball DO Work Phone: 1(419)[address] [place], [place] 9531804-23-2025 10:00-0400 Body simmzo030.34 cmBenjamin Ball DO Work Phone: [phone])[address] [place], [place] 9531804-23-2025 10:00-0400 Body mass index (BMI) [Ratio]32.8 kg/l6Gsfbenkl Ball DO Work Phone: 1(419)[address] [place], [place] 9531804-23-2025 10:00-0400 Body xuqigy561.59 kgBenjamin Ball DO Work Phone: 1(419)[address] [place], [place] 9531804-23-2025 10:00-0400 Diastolic blood qetrmyvl74 mm[Hg]Vitaliy Ball DO Work Phone: 1(419)[address] [place], [place] 9531804-23-2025 10:00-0400 Heart rate75 /minBenjamin Ball DO Work Phone: 1(419)[address] [place], [place] 9531804-23-2025 10:00-0400 Respiratory rate12 /minBenjamin Ball DO Work Phone: 1(419)[address] [place], [place] 9531804-23-2025 10:00-0400 Systolic blood jsifecoo656 mm[Hg]Vitaliy Ball DO Work Phone: 1(419)[address] [place], [place] 9531803-25-2025 13:36-0400 Body ghxqyw207.34 cmBenjamin Ball DO Work Phone: 1(419)[address] [place], [place] 9531803-25-2025 13:36-0400 Body mass index (BMI) [Ratio]33.6 kg/n6Tqjxtqze Ball DO Work Phone: 1(419)[facility]40[facility]03-25-2025 13:36-0400 Body .31 kgBenjamin Ball DO Work Phone: [facility]03-25-2025 13:36-0400 Diastolic blood qwhawthb62 mm[Hg]Vitaliy Ball DO Work Phone: [facility]03-25-2025 13:36-0400 Heart kjjy143 /minBenjamin Ball DO Work Phone: [facility]03-25-2025 13:36-0400 Respiratory rate12 /minBenjamin Ball DO Work Phone: [facility]03-25-2025 13:36-0400 Systolic blood qicqbszs171 mm[Hg]Vitaliy Ball DO Work Phone: [facility]03-24-2025 09:38-0400 Body mass index (BMI) [Ratio]33.37 kg/l1JvobosckHeladio Pineda MD Work Phone: [facility]03-24-2025 09:38-0400Body rftmui842 kg Heldaio Pineda MD Work Phone: [facility]03-24-2025 09:38-0400Diastolic blood mm[Hg]Heladio Pineda MD Work Phone: [phone]03-24-2025 09:38-0400Heart rate81 /min Heladio Pineda MD Work Phone: [phone]03-24-2025 09:38-0400Systolic blood kvbkhzde462 mm[Hg]Heladio Pineda MD Work Phone: [facility]01-24-2025 14:11-0500Body lirmeq992.34 [facility]24-2025 14:11-0500Body mass index (BMI) [Ratio]33.2 kg/b1EstiyffgcA[facility]01-24-2025 14:11-0500Body .06 kg[facility]01-24-2025 14:11-0500Diastolic blood ogzybnsi66 mm[Hg][facility]01-24-2025 14:11-0500 Heart xoam249 /[facility]01-24-2025 14:11-0500 Respiratory rate12 [facility]01-24-2025 14:11-0500 Systolic blood mm[Hg][facility]12-09-2024 15:30-0500Body bvkihc252.34 cmA[facility]12-09-2024 15:30-0500Body mass index (BMI) [Ratio]32.9 kg/q0DmdxjdbqnA[facility]man [facility] Hospital12-09-2024 15:30-0500Body .3 [degF][facility]12-09-2024 15:30-0500Body vmicik727.16 kg[facility]12-09-2024 15:30-0500Diastolic blood safenvst24 mm[Hg][facility]12-09-2024 15:30-0500Heart sidl312 /[facility]12-09-2024 15:30-0500Respiratory rate12 [facility]12-09-2024 15:30-0500Systolic blood lugcsndv848 mm[Hg][facility]11-07-2024 13:51-0500Body lustom825.8 cmAntonio Steele MD Work Phone: [facility]11-07-2024 13:51-0500 Body mass index (BMI) [Ratio]35.01 kg/s3BncsqamAntonio Steele MD Work Phone: [facility]11-07-2024 13:51-0500 Body bzcuam756.68 kgAntonio Steele MD Work Phone: [facility]11-07-2024 13:51-0500 Diastolic blood mm[Hg]Antonio Steele MD Work Phone: [facility]11-07-2024 13:51-0500 Systolic blood lafrcsju233 mm[Hg]Antonio Steele MD Work Phone: [facility]10-22-2024 13:21-0400 Diastolic blood mm[Hg]Bird Kowalski MD Work Phone: [facility]10-22-2024 13:21-0400 Heart rate67 /John Kowalski MD Work Phone: [phone])224-[facility]10-22-2024 13:21-0400 Respiratory rate15 /John Kowalski MD Work Phone: [phone])045-[facility]10-22-2024 13:21-0400 SaO2% (BldA) [Mass fraction]95 %Bird Kowalski MD Work Phone: [facility]10-22-2024 13:21-0400 Systolic blood mm[Hg]Bird Kowalski MD Work Phone: [phone]10-22-2024 09:49-0400 Body lmchbu519.1 Taryn Kowalski MD Work Phone: [facility]10-22-2024 09:49-0400 Body mass index (BMI) [Ratio]34.6 kg/w4XyfxrnBird Kowalski MD Work Phone: [phone]10-22-2024 09:49-0400 Body mqyogz928 kgBird Kowalski MD Work Phone: [phone]09-23-2024 13:42-0400 Diastolic blood madjafmo06 mm[Hg]DO Vitaliy Ball Work Phone: [facility]09-23-2024 13:42-0400 Heart rate70 /minDSary Brower Work Phone: [facility]09-23-2024 13:42-0400 Respiratory rate16 /PernellO Vitaliy Ball Work Phone: [facility]09-23-2024 13:42-0400 SaO2% (BldA) [Mass fraction]98 %DO Vitaliy Brower Work Phone: [facility]09-23-2024 13:42-0400 Systolic blood rpqykwnl098 mm[Hg]DO Vitaliy Brower Work Phone: [facility]09-23-2024 10:41-0400 Body yzncxw635.07 cmDO Vitaliy Brower Work Phone: [facility]09-23-2024 10:41-0400 Body ccwmyf646.23 kgDO Vitaliy Brower Work Phone: [facility]09-11-2024 10:00-0400 Body .1 Taryn Kowalski MD Work Phone: [facility]09-11-2024 10:00-0400 Body mass index (BMI) [Ratio]34.52 kg/r4OlucpqBird Kowalski MD Work Phone: [facility]09-11-2024 10:00-0400 Body ljucjaldwfv50.5 [degF]Bird Kowalski MD Work Phone: [facility]09-11-2024 10:00-0400 Body .68 kgBird Kowalski MD Work Phone: [facility]09-11-2024 10:00-0400 Diastolic blood stjysmxy31 mm[Hg]Bird Kowalski MD Work Phone: [facility]09-11-2024 10:00-0400 Heart rate73 /John Kowalski MD Work Phone: [facility]09-11-2024 10:00-0400 Respiratory rate16 /John Kowalski MD Work Phone: [facility]09-11-2024 10:00-0400 SaO2% (BldA) [Mass fraction]95 %Bird Kowalski MD Work Phone: [facility]09-11-2024 10:00-0400 Systolic blood ehmqnhue713 mm[Hg]Bird Kowalski MD Work Phone: [facility]08-12-2024 14:26-0400 Body pqyklb903.64 cmDO Vitaliy Ball Work Phone: [phone]08-12-2024 14:26-0400 Body mass index (BMI) [Ratio]37.8 kg/m2DO Vitaliy Ball Work Phone: [facility]08-12-2024 14:26-0400 Body eiylon628.31 kgDO Vitaliy Ball Work Phone: [phone]-[facility]08-12-2024 14:26-0400 Diastolic blood lwsubonq82 mm[Hg]DO Vitaliy Ball Work Phone: [phone]08-12-2024 14:26-0400 Heart rate80 /minDO Vitaliy Ball Work Phone: [phone]08-12-2024 14:26-0400 Respiratory rate12 /minDO Vitaliy Ball Work Phone: [phone]08-12-2024 14:26-0400 Systolic blood fcbfimvk827 mm[Hg]DO Vitaliy Ball Work Phone: [facility]07-11-2024 14:32-0400 Body mass index (BMI) [Ratio]33.95 kg/z2WtrgkjeAntonio Steele MD Work Phone: [facility]07-11-2024 14:32-0400 Body .86 kgAntonio Steele MD Work Phone: [facility]07-11-2024 14:32-0400 Diastolic blood iktzjzxm91 mm[Hg]Antonio Steele MD Work Phone: [facility]07-11-2024 14:32-0400 Heart rate82 /minAntonio Steele MD Work Phone: [facility]07-11-2024 14:32-0400 Systolic blood oyfxmvjn348 mm[Hg]Antonio Steele MD Work Phone: [facility]05-31-2024 13:17-0400 Body lgbahf180.64 cmDO Vitaliy Ball Work Phone: [phone])[address]05-31-2024 13:17-0400 Body mass index (BMI) [Ratio]38.5 kg/m2DO Vitaliy Ball Work Phone: [phone])[address]05-31-2024 13:17-0400 Body .12 kgDO Vitaliy Ball Work Phone: 1(174)[address]05-31-2024 13:17-0400 Diastolic blood vmblomke64 mm[Hg]DO Vitaliy Ball Work Phone: 1(804)[address]05-31-2024 13:17-0400 Heart rate78 /minDO Vitaliy Ball Work Phone: 1(774)[address]05-31-2024 13:17-0400 Respiratory rate12 /minDO Vitaliy Ball Work Phone: 1(355)[address]05-31-2024 13:17-0400 Systolic blood oyvugyff978 mm[Hg]DO Vitaliy Ball Work Phone: 1(686)[address]05-25-2024 11:29-0400 Body xkojnvcflpa03.8 [degF]DO Vitaliy Ball Work Phone: 1(947)309-[address] [place], [place] 3182305-25-2024 11:29-0400 Diastolic blood qoieines34 mm[Hg]DO Vitaliy Ball Work Phone: 1(308)309-[address] [place], [place] 3182305-25-2024 11:29-0400 Heart rate88 /minDO Vitaliy Ball Work Phone: 1(298)521-[address] [place], [place] 3182305-25-2024 11:29-0400 Respiratory rate16 /minDO Vitaliy Ball Work Phone: 1(189)196-[address] [place], [place] 3182305-25-2024 11:29-0400 SaO2% (BldA) [Mass fraction]98 %DO Vitaliy Ball Work Phone: [phone])[address]05-25-2024 11:29-0400 Systolic blood fqkmuspm948 mm[Hg]DO Vitaliy Ball Work Phone: 1(790)[address] [place], [place] 9531805-25-2024 05:17-0400 Body pvqbip068 kgDO Vitaliy Ball Work Phone: [phone])[address] [place], [place] 9531805-24-2024 13:01-0400 Body hfiucf207.8 cmDO Vitaliy Ball Work Phone: [phone])[address] [place], [place] 9531805-23-2024 22:00-0400 Diastolic blood zdpwxyyk46 mm[Hg]DO Vitaliy Ball Work Phone: 1(072)[address] [place], [place] 9531805-23-2024 22:00-0400 Heart rate86 /minDO Vitaliy Ball Work Phone: 1(520)[address] [place], [place] 9531805-23-2024 22:00-0400 Respiratory rate21 /minDO Vitaliy Ball Work Phone: 1(361)[address] [place], [place] 9531805-23-2024 22:00-0400 SaO2% (BldA) [Mass fraction]93 %DO Vitaliy Ball Work Phone: 1(943)[address] [place], [place] 9531805-23-2024 22:00-0400 Systolic blood mm[Hg]DO Vitaliy Ball Work Phone: 1(961)[address] [place], [place] 9531805-23-2024 20:00-0400 Body fisuqoccedp16.8 [degF]DO Vitaliy Ball Work Phone: 1(554)[address] [place], [place] 9531805-23-2024 16:29-0400 Body dokmhx776.8 cmDO Vitaliy Ball Work Phone: 1(818)[address] [place], [place] 9531805-23-2024 16:29-0400 Body mijlwy144.23 kgDO Vitaliy Ball Work Phone: 1(256)[address] [place], [place] 9531805-09-2024 11:36-0400 Body tabwam811.1 cm[facility]09[facility]2024 11:36-0400Body mass index (BMI) [Ratio]34.52 kg/d7ZijgudDepartment of [facility]05-09-2024 11:36-0400[facility] .[facility] 11:36-0400Diastolic blood arwlccns53 mm[Hg][facility]05-09-2024 11:36-0400 Heart rate75 /minDepartment [facility]05-09-2024 11:36-0400Systolic blood qyugansk748 mm[Hg][facility]04-25-2024 09:29-0400Inhaled oxygen flow rate3 L/minDO Vitaliy Brower Work Phone: [facility]04-25-2024 09:29-0400 SaO2% (BldA) [Mass fraction]95 %DO Vitaliy Ball Work Phone: [facility]04-24-2024 13:58-0400 Body uibein848.8 cmDO Vitaliy Ball Work Phone: [facility]04-24-2024 13:58-0400 Body razjyq267 kgDO Vitaliy Inocente Work Phone: [facility]04-19-2024 11:14-0400 Diastolic blood cmyfeziq81 mm[Hg]Antonio Steele MD Work Phone: 8(605)895-[address] [place], [place] 3056704-19-2024 11:14-0400 Systolic blood twjqistj083 mm[Hg]Antonio Steele MD Work Phone: 7(118)187-[address] [place], [place] 3056704-19-2024 11:13-0400 Body lxdtoz850.8 cmAntonio Steele MD Work Phone: 1(098)669-[address] [place], [place] 3056704-19-2024 11:13-0400 Body mass index (BMI) [Ratio]35.15 kg/k2DyuylluAntonio Steele MD Work Phone: [facility]04-19-2024 11:13-0400 Body pflvuo930.13 Kimberly Steele MD Work Phone: [facility]04-19-2024 11:13-0400 Heart rate91 /minAntonio Steele MD Work Phone: [facility]03-22-2024 10:00-0400 Body mrusgg716.8 cmDO Vitaliy Ball Work Phone: [phone]03-22-2024 10:00-0400 Body mass index (BMI) [Ratio]35.7 kg/m2DO Vitaliy Ball Work Phone: [phone]03-22-2024 10:00-0400 Body .11 kgDO Vitaliy Ball Work Phone: [phone]03-22-2024 10:00-0400 Diastolic blood ddkcyrmm09 mm[Hg]DO Vitaliy Ball Work Phone: [phone]03-22-2024 10:00-0400 Heart rate86 /minDO Vitaliy Ball Work Phone: [phone]03-22-2024 10:00-0400 Respiratory rate12 /minDO Vitaliy Ball Work Phone: [phone]03-22-2024 10:00-0400 Systolic blood mm[Hg]DO Vitaliy Ball Work Phone: [phone]02-26-2024 14:08-0500 Body blozhn124.8 [facility]essandro Booth [facility]-26-2024 14:08-0500Body mass index (BMI) [Ratio]34.15 kg/v2QdxgnsSarai Booth MD Work Phone: [facility]02-26-2024 14:08-0500Body ypeajb514.96 kgSarai Booth MD Work Phone: [facility] [phone] 14:08-0500Diastolic blood iyqqwmxk31 mm[Hg]Sarai Booth MD Work Phone: [facility] [employer] Mluong20-68-0417 14:08-0500Heart rate 94 /minSarai Booth MD Work Phone: [facility]02-26-2024 14:08-8473SrI3% (BldA) [Mass fraction]94 %Sarai Booth MD Work Phone: [facility] [employer] [id number] 14:08-0500Systolic blood hijzlofo275 mm[Hg]Sarai Booth MD Work Phone: [facility]01-29-2024 11:00-0500Body eanywk709.8 cmSukhjinder Montesinos Other [facility]01-29-2024 11:00-0500 Body mass index (BMI) [Ratio]34.72 kg/h6IvtviSukhjinder Montesinos Other [employer] Other 01-29-2024 11:00-0500Body .76 kgDO Vitaliy Ball Work Phone: [facility]01-29-2024 11:00-0500 Body swojdt045.77 kgKesaida Montesinos Other [employer] Other 01-24-2024 10:45-0500Body fijzsz773.8 cmBenjamin Ball Other [facility]01-24-2024 10:45-0500 Body mass index (BMI) [Ratio]34.72 kg/l8Bkveazzr Ball Other [employer] Other 01-24-2024 10:45-0500Body edbmfh727.77 kgBenjamin Ball Other [employer] Other 01-24-2024 10:45-0500Body yevhxb096.76 kgDO Vitaliy Ball Work Phone: [facility]01-24-2024 10:45-0500 Diastolic blood rkxkcvue02 mm[Hg]Vitaliy Ball Other [facility]01-24-2024 10:45-0500 Respiratory rate12 /minBenjamin Ball Other [employer] Other 01-24-2024 10:45-0500Systolic blood misofkab699 mm[Hg] Vitaliy Ball Other [facility]12-28-2023 10:15-0500 Body wewarr649.8 cmBenjamin Ball Other [facility]12-28-2023 10:15-0500 Body mass index (BMI) [Ratio]34.29 kg/j8Confsgka Ball Other [employer] Other [id number] 10:15-0500Body .41 kgBenjamin Ball Other [employer] Other [id number] 10:15-0500Body hqqbat717.4 kgDO Vitaliy Ball Work Phone: [facility]12-28-2023 10:15-0500 Diastolic blood qmvoywxz85 mm[Hg]Vitaliy Ball Other [facility]12-28-2023 10:15-0500 Respiratory rate12 /minBenjamin Ball Other [employer] Other [id number] 10:15-0500Systolic blood rswpobub24 mm[Hg] Vitaliy Ball Other [facility]12-07-2023 11:15-0500 Body vbufzj297.8 cmSukhjinder Montesinos Other [address] [place], [place] 8772812-07-2023 11:15-0500 Body mass index (BMI) [Ratio]34.29 kg/a0KdfypSukhjinder Montesinos Other [facility] [employer] Other 12-07-2023 11:15-0500Body hyuiap582.41 kgKesaida Montesinos Other [facility] [employer] Other 12-07-2023 11:15-0500Body emizsv901.4 kgDO Vitaliy Ball Work Phone: [facility]11-27-2023 13:28-0500 Body fjvlyk217.59 kgHeladio Pineda MD Work Phone: [facility]11-27-2023 13:28-0500Diastolic blood zchyeayw29 mm[Hg]Heladio Pineda MD Work Phone: [facility]11-27-2023 13:28-0500Heart tzqj661 /minHeladio Pineda MD Work Phone: [facility]11-27-2023 13:28-0500Systolic blood vwiraeto269 mm[Hg]Heladio Pineda MD Work Phone: [facility]11-07-2023 15:00-0500Diastolic blood hpjrigvw32 mm[Hg]DO Vitaliy Ball Work Phone: [facility]11-07-2023 15:00-0500 Heart rate75 /minDO Vitaliy Ball Work Phone: [facility]11-07-2023 15:00-0500 Respiratory rate16 /minDO Vitaliy Ball Work Phone: [facility]11-07-2023 15:00-0500 SaO2% (BldA) [Mass fraction]94 %DO Vitaliy Ball Work Phone: [facility]11-07-2023 15:00-0500 Systolic blood yiunmnry434 mm[Hg]DO Vitaliy Ball Work Phone: 1(419)483-[address] [place], [place] 3182311-07-2023 11:45-0500 Inhaled oxygen flow rate1 L/minDO Vitaliy Ball Work Phone: 1(313)531-[address] [place], [place] 3182311-07-2023 10:48-0500 Body barkwkswwnk70.2 [degF]DO Vitaliy Ball Work Phone: [phone]11-07-2023 06:59-0500 Body onblfs964.07 cmDO Vitaliy Ball Work Phone: 1(264)770-[address] [place], [place] 3182311-07-2023 06:59-0500 Body mass index (BMI) [Ratio]34 kg/m2DO Vitaliy Ball Work Phone: 1(514)171-[address] [place], [place] 3182311-07-2023 06:59-0500 Body ektgqg092 kgDO Vitaliy Ball Work Phone: 1([phone])997-[address] [place], [place] 3182310-18-2023 15:15-0400 Body siyeqd995.8 cmBenjamin Ball Other [employer] Other 10-18-2023 15:15-0400Body mass index (BMI) [Ratio] 34.32 kg/u0Ofvypfcm Ball Other [employer] Other 10-18-2023 15:15-0400Body cytwjn448.5 kgBenjamin Ball Other [employer] Other 10-18-2023 15:15-0400Diastolic blood ydabvmae24 mm[Hg] Vitaliy Ball Other [employer] Other 10-18-2023 15:15-0400Respiratory rate12 /minBenjamin Ball Other [employer] Other 10-18-2023 15:15-0400Systolic blood smjmuuvs790 mm[Hg] Vitaliy Ball Other [employer] Other 09-29-2023 10:55-0400Body hcitbc008.1 cmHeladio Pineda MD Work Phone: [facility]09-29-2023 10:55-0400Body .5 kgHeladio Pineda MD Work Phone: [facility]09-29-2023 10:55-0400Diastolic blood khpdbooq59 mm[Hg]Heladio Pineda MD Work Phone: [facility]09-29-2023 10:55-0400Heart rate71 /min Heladio Pineda MD Work Phone: [facility]09-29-2023 10:55-0400Systolic blood ckyfuqiu091 mm[Hg]Heladio Pineda MD Work Phone: [facility]09-26-2023 10:30-0400Body .8 cmBenjamin Ball Other [employer] Other 09-26-2023 10:30-0400Body mass index (BMI) [Ratio]34.4 kg/h4Brokdshe Ball Other [employer] Other 09-26-2023 10:30-0400Body .77 kgBenjamin Ball Other [employer] Other 09-26-2023 10:30-0400Diastolic blood mm[Hg] Vitaliy Ball Other [employer] Other 09-26-2023 10:30-0400Respiratory rate12 /minBenjamin Ball Other [employer] Other 09-26-2023 10:30-0400Systolic blood yoepaxbl152 mm[Hg] Vitaliy Ball Other [employer] Other 08-07-2023 15:15-0400Body bhruvx956.8 cmBenjamin Ball Other [employer] Other 08-07-2023 15:15-0400Body mass index (BMI) [Ratio] 33.86 kg/e3Yggpjlrs Ball Other [employer] Other 08-07-2023 15:15-0400Body .05 kgBenjamin Ball Other [employer] Other 08-07-2023 15:15-0400Diastolic blood eeseilhg74 mm[Hg] Vitaliy Ball Other [employer] Other 08-07-2023 15:15-0400Respiratory rate12 /minBenjamin Ball Other [employer] Other 08-07-2023 15:15-0400Systolic blood ocmrzxwp070 mm[Hg] Vitaliy Ball Other [employer] Other 07-19-2023 14:45-0400Body ladymu319.8 cmBenjamin Ball Other [employer] Other 07-19-2023 14:45-0400Body mass index (BMI) [Ratio] 35.24 kg/u5Jtrjhqbk Ball Other [employer] Other 07-19-2023 14:45-0400Body uthxwb637.4 kgBenjamin Ball Other [employer] Other 07-19-2023 14:45-0400Diastolic blood mm[Hg] Vitaliy Ball Other [facility] [employer] Other 07-19-2023 14:45-0400Respiratory rate12 /minBenjamin Ball Other [employer] Other 07-19-2023 14:45-0400Systolic blood jwjommek367 mm[Hg] Vitaliy Ball Other [employer] Other 07-05-2023 15:50-0400Diastolic blood efozzeyt04 mm[Hg] DO Vitaliy Ball Work Phone: [facility]07-05-2023 15:50-0400 Heart rate75 /minDO Vitaliy Ball Work Phone: [facility]07-05-2023 15:50-0400 Respiratory rate20 /minDO Vitaliy Ball Work Phone: [facility]07-05-2023 15:50-0400 SaO2% (BldA) [Mass fraction]95 %DO Vitaliy Ball Work Phone: [facility]07-05-2023 15:50-0400 Systolic blood xjnqevbz667 mm[Hg]DO Vitaliy Ball Work Phone: [phone]06-27-2023 08:30-0400 Body ibqpai495.8 cmBenjamin Ball Other [employer] Other 06-27-2023 08:30-0400Body mass index (BMI) [Ratio] 36.01 kg/a1Xpyhhzhg Ball Other [employer] Other 06-27-2023 08:30-0400Body .85 kgBenjamin Ball Other [employer] Other 06-27-2023 08:30-0400Diastolic blood mm[Hg] Vitaliy Ball Other [employer] Other 06-27-2023 08:30-0400Respiratory rate12 /minBenjamin Ball Other [employer] Other 06-27-2023 08:30-0400Systolic blood noemcrvn181 mm[Hg] Vitaliy Ball Other [employer] Other 05-03-2023 10:00-0400Body liqhwm477.8 cmBenjamin Ball Other [employer] Other 05-03-2023 10:00-0400Body mass index (BMI) [Ratio] 36.21 kg/o2Intzitlu Ball Other [employer] Other 05-03-2023 10:00-0400Body rihhmm218.49 kgBenjamin Ball Other [employer] Other 05-03-2023 10:00-0400Diastolic blood zgvdjojt16 mm[Hg] Vitaliy Ball Other [employer] Other 05-03-2023 10:00-4754UcM8% (BldA) [Mass fraction]94 % Vitaliy Ball Other [employer] Other 05-03-2023 10:00-0400Systolic blood nhnuypmf278 mm[Hg] Vitaliy Ball Other [employer] Other 04-21-2023 10:30-0400Body .8 cmBenjamin Ball Other [employer] Other 04-21-2023 10:30-0400Body mass index (BMI) [Ratio] 36.67 kg/z1Ewykidfl Ball Other [employer] Other 04-21-2023 10:30-0400Body krtloc091.94 kgBenjamin Ball Other [employer] Other 04-21-2023 10:30-0400Diastolic blood eivrsbmm08 mm[Hg] Vitaliy Ball Other [employer] Other 04-21-2023 10:30-0400Respiratory rate16 /minBenjamin Ball Other [employer] Other 04-21-2023 10:30-0400Systolic blood jndqwepw622 mm[Hg] Vitaliy Ball Other [employer] Other 02-14-2023 15:15-0500Body .8 cmBenjamin Ball Other [employer] Other 02-14-2023 15:15-0500Body mass index (BMI) [Ratio] 37.47 kg/f0Dmtlsyqo Ball Other [employer] Other 02-14-2023 15:15-0500Body egixnp280.48 kgBenjamin Ball Other [employer] Other 02-14-2023 15:15-0500Diastolic blood dcsuqexn47 mm[Hg] Vitaliy Ball Other [employer] Other 02-14-2023 15:15-0500Respiratory rate12 /minBenjamin Ball Other [employer] Other 02-14-2023 15:15-0500Systolic blood segcobsj901 mm[Hg] Vitaliy Ball Other [facility] [employer] Other 02-13-2023 14:01-0500Body joxyim216.8 cmDO Vitaliy Ball Work Phone: [facility]02-13-2023 14:01-0500 Body ymdsxtwsohv63 [degF]DO Vitaliy Ball Work Phone: [facility]02-13-2023 14:01-0500 Body .95 kgDO Vitaliy Ball Work Phone: [phone]02-13-2023 14:01-0500 Diastolic blood mm[Hg]DO Vitaliy Ball Work Phone: [facility]02-13-2023 14:01-0500 Heart rate77 /minDO Vitaliy Ball Work Phone: [phone]02-13-2023 14:01-0500 Respiratory rate18 /minDO Vitaliy Ball Work Phone: [facility]02-13-2023 14:01-0500 SaO2% (BldA) [Mass fraction]95 %DO Vitaliy Ball Work Phone: [facility]02-13-2023 14:01-0500 Systolic blood mkoexcxh640 mm[Hg]DO Vitaliy Ball Work Phone: [facility]11-09-2022 15:00-0500 Body xalpzn474.8 [facility] Other [employer] Other 11-09-2022 15:00-0500Body mass index (BMI) [Ratio] 34.15 kg/i5Csgymytmarsha Nichole Other [facility] [employer] Other 11-09-2022 15:00-0500Body yniygr915.96 kgComarsha MediaLinklida Other [employer] Other 11-07-2022 11:00-0500Body .8 cmThomas Felter Other [employer] Other 06-22-2022 12:15-0400Body ncsdom581.8 cmRobert Bantam II Other [employer] Other 03-11-2022 09:15-0500Body gdiwbq437.8 cmRobert Bantam II Other [employer] Other 03-11-2022 09:15-0500Body mass index (BMI) [Ratio] 34.15 kg/o2Kaolhj Bantam II Other [employer] Other 03-11-2022 09:15-0500Body efbnie591.96 kgRobert Bantam II Other [employer] Other 11-16-2021 15:45-0500Body uvlryb070.8 cmThomas Felter Other [employer] Other 11-16-2021 15:45-0500Body mass index (BMI) [Ratio] 34.43 kg/n7Fibvjq Felter Other [employer] Other 11-16-2021 15:45-0500Body ppxoqa308.86 kgThomas Felter Other [employer] Other 09-29-2021 10:45-0400Body .8 cmThomas Felter Other [employer] Other 09-29-2021 10:45-0400Body mass index (BMI) [Ratio] 34.43 kg/q8Nwyuyq Felter Other [facility] [employer] Other 09-29-2021 10:45-0400Body .86 kgThomas Jazmyne Other [facility] [employer] Other Encounters Encounter DateEncounter TypeCare ProviderFacilityStart: 33-19-0091oeodjvtljt [facility] 02-17-2025 End: 87-29-4636Yadntmauw department patient visitWill Zimmerman [facility]2025 End: 95-97-2599hhdtnbvxsoZjkfozcf Ball DO Work Phone: [facility] 02-17-2025 End: 14-25-2238Pqdzzhq encounter procedureBenjamin Ball DO-[facility] Work Phone: Start: 02-02-2025 End: 21-67-4155Cmhetbx encounter procedureBenjamin Ball DO-[facility] Work Phone: Start: 01-30-2025 End: 29-15-8269Skzcrtdjp department patient visitADAHarmony EDGETriHealthtart: 01-30-2025 End: 78-42-9549Riuaolicw department patient visitDiogo Edge MD Work Phone: [facility] Emergency MedicineComment on above:Right leg weakness (Primary Dx)Start: 01-29-2025 End: 36-23-0451Uvkzckvrw department patient visitBenjamin Ball DO Work Phone: [phone]-Cwvbtxpgx Room Work Phone: Start: 01-29-2025 End: 38-43-7786pjevdbfmpqAbykxoes Ball DO Work Phone: [phone]-TfcjmqsmkHendricks [facility] Health BCStart: 01-29-2025 End: 99-24-9881Gvxcylk encounter procedureJonathan Krause MD-[facility] Work Phone: Start: 01-27-2025 End: 35-46-5580Rdtsrif encounter procedureJonathan Krause MD-[facility] Work Phone: Start: 01-27-2025 End: 16-86-4420tsjzzueqqnDtvuqdrl Ball DO Work Phone: [facility] CenterStart: 01-12-2025 End: 00-36-2219ukcqeiqdaeLihamzyw Ball DO Work Phone: [facility] Work Phone: Start: 01-12-2025 End: 17-27-6960Xflgmoq encounter procedureBenjamin Ball DO-[facility] [employer] Work Phone: Start: 01-07-2025 End: 27-10-5039Fkdrgax encounter procedureRobedwar Antunez MDTori Izaguirreusky OrthoStart: 01-07-2025 End: 32-51-2890aoumeipzspQeyjnoqf Ball DO Work Phone: [facility] Work Phone: Start: 01-07-2025 End: 63-94-8572Acswtyj encounter procedureSarai Antunez MD-[facility] Work Phone: Start: 01-05-2025 End: 21-57-2556zndryhjdocUutdkwoi Ball DO Work Phone: [facility] Work Phone: Start: 01-05-2025 End: 99-18-7837Vpvytpw encounter procedureJonathan Krause MD-[facility] Work Phone: Start: 13-87-2959Mfc-patient / Non-visitJonathan Krause MD-[facility] Work Phone: Start: 12-29-2024 End: 72-70-7253snzjpurfkuZucnohwa Ball DO Work Phone: [facility] Work Phone: Start: 12-29-2024 End: 46-18-2817Yzkjaia encounter procedureJonathan Krause MD-[facility] Work Phone: Start: 12-26-2024 End: 77-86-7320vvwawuwekwZejbkwct Ball DO Work Phone: [facility] Work Phone: Start: 12-26-2024 End: 42-61-2916Jrbbqem encounter procedureBejoselorigoberto Brower DO-[facility] Work Phone: Start: 12-22-2024 End: 05-59-0042Enhuyx outpatient visit 25 minutesAntonio Steele MD Work Phone: [facility] HospitalComment on above:Status post aorto-coronary artery bypass graft (Primary Dx); Multi-vessel coronary artery stenosis; Presence of Watchman left atrial appendage closure device; Persistent atrial fibrillation (Multi); Mixed hyperlipidemia; Dilated aortic root; Cardiomyopathy, ischemic; Never smoked cigarettes; Obesity (BMI 30-39.9)Start: 12-22-2024 End: 04-68-3890ewkpmmrwirWXBHGHQColquitt Regional Medical Center AmbulatoryStart: 91-05-8518Mif-patient / Non-visitCatherine Angel [facility] Work Phone: Start: 61-85-5737Fku-patient / Non-visitCasimiro Antunez PA-C-[facility] Work Phone: Start: 12-15-2024 End: 59-28-8060Oydsupchgjci / ancillary services managementLambertoatul HarleyGarcia [facility] HospitalStart: 12-15-2024 End: 95-87-0389lswqzdcfnvPJZVVQBColquitt Regional Medical Center AmbulatoryStart: 37-86-5420Fhl-patient / Non-visitCatherine Angel [facility] Work Phone: Start: 12-15-2024 End: 39-81-1449knunkqwpbjRhkomkgc Ball DO Work Phone: [facility] Work Phone: Start: 12-15-2024 End: 71-27-4810Stchjel encounter procedureJonathan Krause MD-[facility] Work Phone: Start: 12-09-2024 End: 15-02-9241Owhwnmgkbh and management of inpatientMonanci Steele MD-[facility] Work Phone: Start: 11-19-2024 End: 22-47-1886Pmhbuj outpatient visit 40 minutesMonanci Steele MD Work Phone: [facility] HospitalComment on above:Persistent atrial fibrillation (Multi) (Primary Dx); Multi-vessel coronary artery stenosis; Status post aorto-coronary artery bypass graft; Presence of Watchman left atrial appendage closure device; Mixed hyperlipidemia; Dilated aortic root; Cardiomyopathy, ischemic; Never smoked cigarettes; BMI 32.0-32.9,adultStart: 11-19-2024 End: 39-79-2189czbierlmwjFZSSFSACarilion [facility] AmbulatoryStart: 10-23-2024 End: 48-85-2939maufbqqjtpUrpgrybq Ball DO Work Phone: [facility] Work Phone: Start: 10-23-2024 End: 33-24-7323Ibqgijm encounter procedureRobedwar Antunez MD-[facility] Work Phone: Start: 10-23-2024 End: 85-62-5629Xorogsy encounter procedureRobedwar Antunez MD-[facility] OrthoStart: 10-23-2024 End: 82-88-5220ufomvfsjbmGlnzngre Ball DO Work Phone: [facility] Work Phone: Start: 10-08-2024 End: 32-39-1481kwqyhwrupfWgdksscn Ball DO Work Phone: [facility] Work Phone: Start: 10-08-2024 End: 58-57-4838Simumma encounter procedureBejoselorigoberto Brower DO-[facility] Work Phone: Start: 09-30-2024 End: 30-02-5721hyvakbwbdiUkfau HusseinFacility:[facility] Start: 09-30-2024 End: 00-47-9453Sdjburtpki and management of inpatientYazid Yaakov DO-[facility] Work Phone: Start: 09-30-2024 End: 74-83-5514ibbotsqurdf encounterBenangelatimi Brower DO Work Phone: [facility] Work Phone: Start: 09-29-2024 End: 80-77-5973Rdhesqvszt and management of inpatientRapetey Cabello MD-[employer] [facility] Work Phone: Start: 09-29-2024 End: 51-22-8198khzpmgbrvfMoqoj IrineoFacility:[facility] Start: 46-69-9758Ega-patient / Non-visitFang Zhu MD-[facility] Work Phone: Start: 09-26-2024 End: 81-26-6195ldecqsafikHbaefinv Tsai MD Work Phone: RheumatologyComment on above:Pseudogout involving multiple joints (Primary Dx); Idiopathic chronic gout of multiple sites without tophus; Secondary osteoarthritis of multiple sites; PMR (polymyalgia rheumatica) (HCC); CHENCHO positive; Bilateral hand pain; Long-term use of high-risk medication; Chronic hip pain, bilateral; Rotator cuff arthropathy of left shoulder; 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; Bilateral hand swelling; Chronic pain of both knees; Leg weakness, bilateral; Chronic bilateral low back pain without sciatica; Bilateral knee swellingStart: 09-26-2024 End: 48-17-6383Pvbjydatpzjz consultation with Serafin Pineda MD Work Phone: RheumatologyStart: 09-13-2024 End: 17-66-2370Yhinwjkjy encounterHeladio Pineda MD Work Phone: RheumatologyComment on above:Orders; AppointmentStart: 09-13-2024 End: 76-46-1759Ybkphsv encounter procedureHeladio Pineda MD Work Phone: eumatologyComment on above: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); Pseudogout involving multiple joints; Chronic pain of both knees; Vitamin D deficiency; Secondary osteoarthritis of multiple sites; PMR (polymyalgia rheumatica) (HCC); CHENCHO positive; Bilateral hand pain; Long-term use of high-risk medication; Chronic hip pain, bilateralStart: 09-13-2024 End: 01-46-7404Didronvhnfcq consultation with Serafin Pineda MD Work Phone: eumatologyStart: 09-13-2024 End: 80-58-2999judyqknkacHJHDYCPH TSAIFacility:[facility]ertart: 09-09-2024 End: 21-65-2874Ziwlomyhd to same day surgery pensacolaBeesauSecurity Scorecard DO Work Phone: [facility]-Procedure Outpatient Work Phone: Start: 09-09-2024 End: 20-27-8979sgkluywyqqLnvdatae Ball DO Work Phone: [facility] Work Phone: Start: 08-31-2024 End: 42-51-9222Ubuugyfou encounterHeladio Pineda MD Work Phone: [facility] HospitalmatologyComment on above:Orders; AppointmentStart: 08-22-2024 End: 45-46-3793Qkxdsb outpatient visit 25 minutesAntonio Steele MD Work Phone: uh FirelandsComment on above:Persistent atrial fibrillation (Multi) (Primary Dx); Multi-vessel coronary artery stenosis; Status post aorto-coronary artery bypass graft; Mixed hyperlipidemia; Dilated aortic root (CMS-HCC); Cardiomyopathy, ischemic; Presence of Watchman left atrial appendage closure device; BMI 32.0-32.9,adult; Never smoked cigarettesStart: 08-22-2024 End: 70-25-3771gbdcgkamvdOCEQPZKColquitt Regional Medical Center AmbulatoryStart: 08-19-2024 End: 65-09-3970huzcjsudbtFokqqjpu Ball DO Work Phone: [facility] Work Phone: Start: 08-19-2024 End: 47-93-6536Kabravr encounter procedureBenjamin Ball DO Work Phone: [facility] Work Phone: Start: 72-71-2732Rnm-patient / Non-visitBenjamin Ball DO Work Phone: [facility] Work Phone: Start: 04-82-9645Xrl-patient / Non-visitBenjamin Ball DO Work Phone: [facility] Work Phone: Start: 08-11-2024 End: 19-12-7948gopejnaquzVgukfwc AkilFacility:[facility] Start: 08-11-2024 End: 43-45-7820Luqxrjogiw and management of inpatientBenjamin Ball DO Work Phone: [facility]-[employer] [facility] Work Phone: Start: 29-52-0225zctogekmhti encounterBenjamin Ball DO Work Phone: [facility] Work Phone: Start: 08-06-2024 End: 13-53-5361ncidzhdirtPfblzeld Ball DO Work Phone: [facility] Work Phone: Start: 08-06-2024 End: 60-02-3147Diafbvi encounter procedureBenjamin Ball DO Work Phone: [facility] Work Phone: Start: 08-04-2024 End: 82-03-9821Ohspvfj encounter procedureBenjamin Ball DO Work Phone: [facility] Work Phone: Start: 08-04-2024 End: 83-34-7371uvhdacopdoSlvpudrz Ball DO Work Phone: [facility] Work Phone: Start: 08-01-2024 End: 39-83-8430Pzmybynwf department patient visitBenjamin Ball DO Work Phone: [facility]-Emergency Room Work Phone: Start: 07-30-2024 End: 70-49-7233gmqtjmiemoSacjrdsa Ball DO Work Phone: [facility] Work Phone: Start: 07-30-2024 End: 86-78-2071Kigweas encounter procedureBenjamin Ball DO Work Phone: [facility] [employer] Work Phone: Start: 07-07-2024 End: 08-23-6912Rwcgnlzoj encounterHeladio Pineda MD Work Phone: RheumatologyComment on above:ResultsStart: 07-01-2024 End: 54-06-5788kihystnncgGgpcjwgo Ball DO Work Phone: [facility] Work Phone: Start: 07-01-2024 End: 51-86-2048Ibvtlur encounter procedureBenjamin Ball DO Work Phone: [facility]ician [facility] [employer] Work Phone: Start: 63-40-2933Qrt-patient / Non-visitBenjamin Ball DO Work Phone: [facility] Work Phone: Start: 06-30-2024 End: 50-26-4202snyfnetxfkDMIIZBYM TSAIFacility:[facility]ertart: 06-30-2024 End: 18-14-8260Hrwedhd encounter procedureHeladio Pineda MD Work Phone: RheumatologyComment [...] Long-term use of high-risk medicationStart: 06-13-2024 End: 99-62-2985Owufnouces hospital visit by Filemon Hauqe16 Medina StreetComment on above:Atrial fibrillation, unspecified type (Multi)Start: 06-13-2024 End: 36-67-0312sbizryfagnBWYALP J [facility] Centertart: 05-29-2024 End: 80-96-0593Gibguxm encounter procedureBenjamin Ball DO Work Phone: [facility]-Lab [facility] [place] Work Phone: Start: 05-29-2024 End: 89-11-8712euhkvfpstbTcozoccp Ball DO Work Phone: [facility] Work Phone: Start: 05-02-2024 End: 55-71-6679duhgvwmxksJwsbmbmmrC[facility] Clinic [facility] Work Phone: Start: 05-02-2024 End: 70-51-5158Dddgwio encounter procedureFormerly [facility] Physician GroupHonorHealth [facility] Work Phone: Start: 79-49-6030Osm-patient / Non-visitFormerly [facility] GroupHonorHealth [facility] Work Phone: Start: 04-02-2024 End: 27-62-8747HgibdgSeqgib D Grande MD Work Phone: [facility] CardiologyComment on above:Med RefillStart: 03-17-2024 End: 77-52-6722Coojcey encounter procedureFormerly [facility] Physician [facility] Work Phone: Start: 02-18-2024 End: 89-96-4720odvuivqppwOtoagvvl Inocente DO Work Phone: [facility] Work Phone: Start: 02-18-2024 End: 13-94-7856Qbkfstx encounter procedureBejoseloselect specialty hospital [facility] Inocente DO Work Phone: [facility] Physician [facility] Work Phone: Start: 02-14-2024 End: 10-19-4118Nbfvcg outpatient visit 25 minutesAntonio Steele MD Work Phone: [facility] HospitalComment on above:Persistent atrial fibrillation (Multi) (Primary Dx); Status post aorto-coronary artery bypass graft; Presence of Watchman left atrial appendage closure device; Multi-vessel coronary artery stenosis; Mixed hyperlipidemia; Cardiomyopathy, ischemic; Dilated aortic root (CMS-HCC); Never smoked cigarettes; BMI 35.0-35.9,adultStart: 02-14-2024 End: 09-45-8693iktqjssybhNOOFOMBKnickerbocker Hospital AmbulatoryStart: 02-12-2024 End: 09-14-9497ezvtjszevdEC Vitaliy Brower Work Phone: [facility] Work Phone: Start: 02-12-2024 End: 38-06-4738Qfnzdez encounter procedureDO Vitaliy Brower Work Phone: [facility] Work Phone: Start: 01-29-2024 End: 21-59-2067Pcyhtkzrvp and management of inpatientScatie Kowalski MD Work Phone: [facility] HumphreyComment on above: Atrial fibrillation, unspecified type (Multi) (Primary Dx); Preoperative examination; Presence of Watchman left atrial appendage closure deviceStart: 01-29-2024 End: 11-39-8736Nonzblezhybmk examination doneStdanae Kowalski MD Work Phone: [facility] Work Phone: Start: 01-24-2024 End: 12-23-5605gexnujgtmiKB Vitaliy Brower Work Phone: [facility] Work Phone: Start: 01-24-2024 End: 84-39-7967Nhmjvgm encounter procedureDO Vitaliy Brower Work Phone: [facility]-Lab [facility] [place] Work Phone: Start: 83-74-5649Tef-patient / Non-visitDO Vitaliy Brower Work Phone: [facility] Work Phone: Start: 44-48-6969Qlb-patient / Non-visitDO Vitaliy Brower Work Phone: [facility] Work Phone: Start: 12-31-2023 End: 52-62-9599Uaivzgnmz to same day surgery centerDO Vitaliy Brower Work Phone: [facility]-Digestive Health Work Phone: Start: 12-31-2023 End: 92-32-0240khvonxhadtID Vitaliy Brower Work Phone: [facility] Work Phone: Start: 12-19-2023 End: 03-33-0466Laosgg outpatient new 45 Annie Kowalski MD Work Phone: uh [facility] HospitalComment on above: 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 (Multi) (Primary Dx); Persistent atrial fibrillation (Multi)Start: 12-19-2023 End: 79-54-3563oyouzlfihoRMVVVJ J [facility] Centertart: 12-13-2023 End: 01-29-0907XzzslbEamoorth Tsai MD Work Phone: eumatologyComment on above:Refill RequestStart: 89-35-3330Wuw-patient / Non-visitDO Vitaliy Inocente Work Phone: [facility] Work Phone: Start: 11-19-2023 End: 21-66-4565wndkpbknabJK [facility] Work Phone: [facility] Work Phone: Start: 11-19-2023 End: 42-86-8823Vxhqyxmvn for general adult medical examination without abnormal findingsDO [facility] Work Phone: [facility]: 11-19-2023 End: 44-22-8117Zlpgfti encounter procedureDO Vitaliy Brower Work Phone: [facility] GroupHonorHealth [facility] Work Phone: Start: 10-18-2023 End: 51-54-9886Sxfykp outpatient visit 25 Trenton Steele MD Work Phone: uh [facility] CenterComment on above:Persistent atrial fibrillation (Multi) (Primary Dx); Status post aorto-coronary artery bypass graft; Mixed hyperlipidemia; Cardiomyopathy, ischemic; Multi-vessel coronary artery stenosis; BMI 35.0-35.9,adult; Never smoked cigarettesStart: 10-02-2023 End: 04-60-3526rfaqqqafoiNW [facility] Work Phone: [facility] Work Phone: start: 10-02-2023 End: 43-54-1745Urizitb encounter procedureDO Vitaliy Brower Work Phone: [facility] Work Phone: Start: 09-19-2023 End: 67-76-3384fuphhwumanFRLVIG DOEMORNot AvailableStart: 55-65-5784Imuuoqymx encounterHeladio Pineda MD Work Phone: RheumatologyComment on above:ResultsStart: 09-07-2023 End: 62-98-4060yobujoavwbPK Vitaliy Brower Work Phone: [facility] Work Phone: Start: 09-07-2023 End: 84-19-1874Njiwsgp encounter procedureDO Vitaliy Brower Work Phone: [facility] Work Phone: Start: 61-00-8572Ggp-patient / Non-visitDO Vitaliy Brower Work Phone: [facility] Work Phone: Start: 90-73-9113ItmeovOjjzlpdx Tsai MD Work Phone: RheumatologyComment on above:Refill RequestStart: 87-94-9109Pqn-patient / Non-visitDO Vitaliy Brower Work Phone: [facility] Work Phone: Start: 08-30-2023 End: 83-94-5622Yudoidgvyq and management of inpatientDO Vitaliy Brower Work Phone: [facility]-[employer] [facility] Work Phone: Start: 08-16-2023 End: 67-53-6640Imnidktpcklq / ancillary services managementJaiden F Ramon [facility] AlpenaComment on above: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 (Multi)Start: 08-02-2023 End: 18-32-3000Zavmqudgi to same day surgery centerDO Vitaliy Brower Work Phone: [facility]-Electrodiagnostics Work Phone: Start: 08-02-2023 End: 82-22-0872ntatmqroejDZ Vitaliy Brower Work Phone: [facility] Work Phone: Start: 07-27-2023 End: 54-93-0841Fwcerk outpatient new 60 Trenton Steele MD Work Phone: uh Firefranciscan healthComment on above:Persistent atrial fibrillation (Multi) (Primary Dx); Multi-vessel coronary artery stenosis; Cardiomyopathy, ischemic; Mixed hyperlipidemia; 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 (Multi); Status post aorto-coronary artery bypass graft; 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; BMI 35.0-35.9,adultStart: 00-19-7964Piyhcjpuf encounterHeladio Pineda MD Work Phone: RheumatologyComment on above:ResultsStart: 07-05-2023 Non-patient / Non-visitDO Vitaliy Brower Work Phone: [facility] Work Phone: Start: 96-17-7013Btkvfplna encounterHeladio Pineda MD Work Phone: RheumatologyComment on above:Results; OrdersStart: 06-29-2023 End: 39-43-6871mcwkelkgtiLR Vitaliy Brower Work Phone: [facility] Work Phone: Start: 06-29-2023 End: 30-90-5446Gmpfyfs encounter procedureDO Vitaliy Inocente Work Phone: [facility] GroupHonorHealth [facility] Work Phone: Start: 81-52-0030sgavrzrtcsIWTMFBV PROVIDER [facility]: 06-28-2023 End: 94-49-1491Xvtfftwfgu hospital visit by Spike Rod [facility] RadiologyComment on above: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ENTERELMain [facility] Center HospitalStart: 81-10-5354Sahitoutt encounterAmbar Juarez Physicians Cardiology Comment on above:EP Surgery ( Pt Education)Start: 06-06-2023 End: 84-48-6192Aztriqx encounter procedureDO Vitaliy Inocente Work Phone: [facility] Work Phone: Start: 06-04-2023 End: 38-43-0449jmhrmwznnhNGELDP D GRANDEProMedica Doctors Medical Center of Modestotart: 06-04-2023 End: 73-83-5391Exkxcg outpatient visit 40 minutesSarai Booth MD Work Phone: [facility] Physicians CardiologyComment on above: Persistent atrial fibrillation (CMS-HCC) (Primary Dx); Coronary artery disease involving sycuan coronary artery of sycuan heart without angina pectorisStart: 91-29-5115Cgajnbmqh encounterAmbar Villalba CardiologyComment on above:EP Surgery (CDVN)Start: 10-35-7683Oqp- patient / Non-visitDO Vitaliy Brower Work Phone: [facility] Work Phone: Start: 14-66-3550Nrxitxvsm encounterMelinda Gomes CMAProMedica Physicians CardiologyStart: 05-21-2023 End: 26-24-3102bbvhukmfvvHY Vitaliy [employer] Work Phone: [facility] Work Phone: Start: 05-21-2023 End: 74-57-2522Viknmjl encounter procedureDO Vitaliy Borwer Work Phone: [facility]-Ultrasound [facility] [place] Work Phone: Start: 05-21-2023 End: 33-09-7958Kzkadha encounter procedureDO Vitaliy Brower Work Phone: [facility] [place] [facility] Start: 05-21-2023 End: 11-34-1615qkxieuwhogHU Vitaliy Brower Work Phone: [facility] Work Phone: Start: 84-90-9598Fjdxfz outpatient visit 15 minutes Melinda Izaguirreusky OrthopedicsStart: 34-52-8908Medctsucm encounter Sarai Izaguirreusky OrthopedicsStart: 05-18-2023 End: 71-37-8419wingmsevgyEvnvnfrc Ball Other [email or web address] Other Start: 67-88-2809Gdvozbjge encounterBenrigoberto BrowerFPPal Brower Medical ClinicStart: 69-96-9660Mimols outpatient visit 15 minutesRobedwar HEBERT [place] OrthopedicsStart: 05-16-2023 End: 23-72-4172dyaskjyeyrRP Vitaliy Brower Work Phone: [facility] [facility] Work Phone: Start: 05-16-2023 End: 16-77-0088Xcabtmd encounter procedureDO Vitaliy Brower Work Phone: [facility] Start: 05-07-2023 End: 01-30-2739jihvwsuuwoNnhdj Bailey Other [employer] Other Start: 07-96-5538Begypn outpatient visit 25 minutes Sukhjinder Izaguirreus[facility] OrthopedicsStart: 05-07-2023 End: 73-90-4612Xcetpan encounter procedureDO Vitaliy Brower Work Phone: [facility]-Start: 05-02-2023 End: 79-24-3638slmwjuggfnCjkqonzi Ball Other [employer] Other Start: 39-45-0479Sgtyip outpatient visit 15 minutes Vitaliy BatemanG [facility] ClinicStart: 05-02-2023 End: 81-22-9054Ypfswbg encounter procedureDO Vitaliy Brower Work Phone: [facility]-Start: 04-18-2023 End: 39-32-3676Bmwpenhpr department patient visitBarnstable County Hospitaltart: 58-71-0538Xyntdssdx encounterPamela Jeny Krishnamurthy Physicians CardiologyStart: 04-12-2023 End: 14-70-7066ufpxzhrhqwTqqcgjrp Ball Other [employer] Other Start: 67-41-6593Ufryti outpatient visit 15 minutes Vitaliy [facility] ClinicStart: 72-53-2915Aihjcmm encounter procedure DO Vitaliy Oh Phone: [facility]-Start: 04-11-2023 End: 16-33-4904uutslhyipxTzwyuy Andrea II Other [employer] Other Start: 38-12-9173Qbpkvy follow up visit related to original pxRobert Bantam IIFPG [facility]icsStart: 04-06-2023 End: 10-13-6648lngmnphdikTmjmljvk Ball Other [employer] Other Start: 09-69-8339Enpscffpe encounterBenjamin BallFPG [facility] ClinicStart: 04-05-2023 End: 74-58-9438hujoplucqcDwjgzsxt Ball Other [employer] Other start: 37-97-8575Wffpdi outpatient visit 15 minutes Vitaliy BatemanG [facility] ClinicStart: 04-05-2023 End: 61-08-6203Jlitkba encounter procedureDO Vitaliy Brower Work Phone: [facility] Work Phone: Start: 76-44-2444Mlukpx follow up visit related to original pxRobert Bantam IIFPG [facility]icsStart: 03-29-2023 End: 68-00-4834vkqshcckzoWG Vitaliy Brower Work Phone: [facility] Work Phone: Start: 03-29-2023 End: 67-14-3668Rnqxjjk encounter procedureDO Vitaliy Brower Work Phone: [facility] Start: 03-15-2023 End: 08-07-8528vflnbhsjvvFssjm Bailey Other [employer] Other Start: 09-74-8365Aggqrl outpatient visit 25 minutes Sukhjinder MontesinosFPG [facility]icsStart: 30-83-1813Jpcrlt follow up visit related to original pxPollonnmichael VerduzcoFPG [facility]icsStart: 03-15-2023 End: 07-91-6634Caqwpvd encounter procedureDO Vitaliy Brower Work Phone: [facility] Work Phone: Start: 03-12-2023 End: 31-27-7025eruxmzgtmsIfuqar Bantam II Other [employer] Other Start: 79-91-1090Fhpnktqxq encounterRobert Bantam II [facility]icsStart: 03-07-2023 End: 03-30-7885lgwhyakcalQpisekgr [facility] Other [employer] Other Start: 77-73-4757Yudddg follow up visit related to original pxRobert Andrea IIFPG [facility]icsStart: 43-75-2126Rdlvkatut encounterBenrigoberto Brower Medical ClinicComment on above:ResultsStart: 03-05-2023 End: 71-29-8010pmehkwqikpHagdseor Ball Other [facility] [employer] Other Start: 03-05-2023 End: 11-74-4434Iwprpnw encounter Nora Pineda MD Work Phone: RheumatologyComment [...] pain of both knees; Bilateral hand painStart: 23-45-0762Pxdsgbdbs encounterBejuany Brower Medical ClinicStart: 06-64-0305PfzjgzAnxxrmru Tsai MD Work Phone: RheumatologyComment on above:Refill RequestStart: 02-28-2023 End: 50-51-1220riayetgnxlBekxblon [place] Other [place] [employer] Other Start: 02-16-0444Hdbzxk follow up visit related to original pxMelinda Wing OrthopedicsStart: 02-16-2023 End: 70-94-8046fyhoxlactsLcogdj Bantam II Other [facility] [employer] Other Start: 49-78-6734Yjsmqdbdq encounterRobert Bantam II FPG [facility] ClinicStart: 07-06-5387Whlcnuavv encounterBenrigoberto Brower Medical ClinicStart: 02-13-2023 End: 14-32-9406Wnydvbprf to same day surgery centerDO Vitaliy Ball Work Phone: [facility]Start: 02-13-2023 End: 10-23-2510sbbmingdunIF Vitaliy Ball Work Phone: [facility] Work Phone: Start: 02-12-2023 End: 13-66-5842yvzeocujceCycjn Bailey Other [employer] Other Start: 50-13-9177Nnizktmgj encounterKesaida MontesinosFPG [facility]opedicsStart: 02-06-2023 End: 68-84-2520zrpayqrufnFqhhuo Bantam II Other [employer] Other Start: 55-60-5002Xohvvpect encounterRobert Andrea II [facility]icsStart: 02-02-2023(Prolonged) Prolonged ServicesRobert Andrea IIFPG [facility]icsStart: 02-02-2023 End: 87-05-0857iqvjdsomiyFulssw Andrea II Other [employer] Other Start: 01-31-2023 End: 03-63-5474lofqqptalcJfvlzg Bantam II Other [employer] Other Start: 92-23-6072Xothytc encounter procedureRobert Andrea IIFPG [facility]icsStart: 01-26-2023 End: 76-53-7226fecwgdpueiTH Vitaliy Ball Work Phone: [facility] Work Phone: Start: 01-26-2023 End: 59-83-3753Silhdil encounter procedureDO Vitaliy Ball Work Phone: [facility] Hly-Ycc-Ubnclxec Testing Work Phone: Start: 01-24-2023 End: 13-17-7168xianwhevmyGokfgdak Ball Other [employer] Other Start: 78-54-9657Hxubxy outpatient visit 15 minutes Vitaliy Brower Medical ClinicStart: 82-86-1459Sqjobpwif encounterHeladio Pineda MD Work Phone: RheumatologyComment on above:ResultsStart: 01-05-2023 End: 91-63-7401Ffujxan encounter procedureHeladio Pineda MD Work Phone: RheumatologyComment [...] of left shoulder; Pain in right hip; 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; CHENCHO positive; Bilateral hand swellingStart: 01-02-2023 End: 62-31-4507fzyvsmswzqLhzcqnho Ball Other [employer] Other Start: 88-16-3158Yzzuljskr for other preprocedural examinationBenrigoberto Brower Medical ClinicStart: 11-19-7416Djsnca outpatient visit 25 minutesBejoselorigoberto Brower Medical ClinicStart: 12-26-2022 End: 77-74-8727qvgbippbwsSbtrcxnw [place] Other [facility] [employer] Other Start: 40-25-6245Ggjaiw outpatient visit 15 minutes [facility]icsStart: 12-20-2022 End: 62-56-4997grddhnvqezNeflbggb Ball Other [employer] Other Start: 07-54-0840Jelittxrb encounterBenjamin BallFPG [facility] ClinicStart: 12-04-2022 End: 03-70-6995smzntklfwrFdxisjxs Ball Other [employer] Other Start: 77-55-5484Rgzqsuawl encounterBenjamin BallFPG [facility] ClinicStart: 11-23-2022 End: 44-57-1069cagqwjsqtrMjoydqsv Ball Other [employer] Other Start: 57-44-3132Nmjotdows encounterBenjamin BallFPG [facility] ClinicStart: 11-22-2022 End: 13-63-4927fwwrgfbtoiNnzlsu Bantam II Other [facility] [employer] Other Start: 41-29-8623Zqqekocob encounterRobert Bantam II [facility]icsStart: 11-21-2022 End: 14-51-5987hkvnfsrvhePmvotawb [place] Other [facility] [employer] Other Start: 24-40-7546Ydghtw outpatient visit 15 minutes Melinda VerduzcoFPG [facility]icsStart: 11-13-2022 End: 21-41-3838Myxwpiy encounter procedureDO Vitaliy Ball Work Phone: [facility]-Lab [facility] [place] Work Phone: Start: 11-13-2022 End: 61-65-4401dbltbspxxgKT Vitaliy Ball Work Phone: [facility] Work Phone: Start: 11-06-2022 End: 35-49-0299cdjcurpwywZajxyyug Ball Other [employer] Other Start: 84-41-6148Zosjjfbhc encounterBenrigoberto Brower Medical ClinicStart: 11-01-2022(Procedure) ShortThomas FelterErie [facility] CenterStart: 11-01-2022 End: 93-52-4688frsyjnkjzzDgxxwa Felter Other [employer] Other Start: 10-26-2022 End: 78-88-7944bbrvrgxouoHI Vitaliy Brower Work Phone: [facility] Work Phone: Start: 10-26-2022 End: 39-91-1367Brrbimv encounter procedureDO Vitaliy Brower Work Phone: [facility] Start: 10-25-2022 End: 24-53-4859zlpcvcllfjSitillvr Ball Other [employer] Other Start: 65-63-4454Bqwjeb outpatient visit 15 minutes Vitaliy [facility]er [facility] ClinicStart: 10-11-2022 End: 14-71-5307Wjxymakrs department patient visitDO Vitaliy Brower Work Phone: [facility]-Emergency Room Work Phone: Start: 10-05-2022 End: 35-38-7494pmtswdqfxtExdnrl Bantam II Other [employer] Other Start: 55-46-3085Ixqshpjpq encounterRobert Bantam II [facility]icsStart: 10-04-2022 End: 55-74-8770rltwqfgmaqYhfjxqcg Ball Other [employer] Other Start: 54-38-0209Aspauzbib encounterBenrigoberto Brower Medical ClinicStart: 10-03-2022 End: 83-47-5490rutviehsjiBksyjiwy Ball Other [employer] Other Start: 44-20-2117Jotkcr outpatient visit 15 minutes Vitaliy BallNATALIEG [facility] ClinicStart: 21-50-0623Nlmnobbws encounterThomas FelterFPG [facility]icsStart: 10-02-2022 End: 78-01-3184ethvositssFL Vitaliy Ball Work Phone: [facility] Work Phone: Start: 10-02-2022 End: 94-14-2545Xqmhcjr encounter procedureDO Vitaliy Brower Work Phone: [facility]-Lab [address] Work Phone: Start: 09-27-2022 End: 37-39-5036ynwippnxofMbprzscz Ball Other [employer] Other Start: 61-52-5194Ymvxqacfl encounterBenjamin BallFPG [facility] ClinicStart: 12-45-2992rwiezrzfpoWJ VITALIY BROWERFacility:X7Qimbc: 08-09-2022 End: 97-51-0128bwnkxgkbkhIgzyvwck Ball Other [employer] Other Start: 79-59-8577Mlozdl outpatient visit 15 minutes Vitaliy BallFPG [facility] ClinicStart: 08-07-2022 End: 89-97-2576ahdzdiopseEokbfp Felter Other [employer] Other Start: 89-02-3237Xtovot outpatient visit 15 minutes Jonathan FeltdreadFPPal [facility] [place] CreekStart: 08-02-2022 End: 84-15-6029eqdhwpvyqtVM Vitaliy Ball Work Phone: [facility] Work Phone: Start: 08-02-2022 End: 00-60-8870Vnaqtag encounter procedureDO Vitaliy Ball Work Phone: [facility] Start: 08-01-2022 End: 77-86-4576rglusliqjbFfhfamdg Ball Other [employer] Other Start: 69-48-2036Vaaidfkho encounterBenrigoberto Brower Medical ClinicStart: 07-31-2022(Procedure) ShortThomas FelterErie [facility] CenterStart: 07-31-2022 End: 77-75-7193vzchisvckhIM VITALIY BROWERLeadwood [employer] Other Start: 78-77-7751Lixvxhqtw encounterThomas FelterFPG [facility] CreekStart: 07-29-2022 End: 04-00-9451zwhamftvoyKB VITALIY BROWERFacility:B8Riatm: 07-28-2022 End: 35-74-7809mmxbjphibwQzvoeaxl Ball Other [employer] Other Start: 23-48-0221Rzwhte outpatient visit 25 minutes Vitaliy [facility]er [facility] ClinicStart: 07-04-2022 End: 85-34-3923aavakprnmwTytxjg Olexa Other [employer] Other Start: 18-98-4974Cklrku outpatient visit 25 minutes Jonathan OlexaFPPal IzaguirreStaunton OrthopedicsStart: 07-03-2022 End: 25-64-0001dfffeyugmeGvkngojc [place] Other [employer] Other Start: 18-33-6009Gxayaklhc encounterMelinda SWAIN [facility]Start: 06-29-2022 End: 74-27-0232aknvttykzrIC Vitaliy Brower Work Phone: [facility] Work Phone: Start: 06-29-2022 End: 85-27-1938Bguyozl encounter procedureDO Vitaliy Brower Work Phone: [facility] [place] Work Phone: Start: 06-09-2022 End: 59-49-7238rxeegpmwcnOhjaupnm Ball Other [employer] Other Start: 11-12-1788Jeaaxbcbd encounterBenrigoberto BatemanG [facility] ClinicStart: 06-05-2022 End: 18-41-0614stzfvqlpsyDeffut Felter Other [employer] Other Start: 36-54-5161Zpgtda outpatient visit 15 minutes Jonathan VieiradreadWILIAM [facility] [place]Start: 05-29-2022 End: 08-70-2802shpmkgbpgaFwiapfym Ball Other [employer] Other Start: 69-57-8266Bmqknc outpatient visit 10 minutes Vitaliy BatemanG [facility] ClinicStart: 05-23-2022 End: 02-59-5431tgquflgbdbQmmszaqt Ball Other [employer] Other Start: 50-39-1851Gtjqzm outpatient visit 15 minutes Vitaliy BrowerFPG [facility] ClinicStart: 40-09-9561Kenjhlrpq encounterBenjamin InocenteFPG [facility] ClinicStart: 05-22-2022 End: 83-18-3912Slxqnuwmw department patient visitDO Vitaliy Brower Work Phone: [facility]-Emergency Room Work Phone: Start: 05-01-2022(Procedure) ShortThomas FelterErie [facility] CenterStart: 05-01-2022 End: 12-60-5422gozlgcpaibOdvlxj Felter Other [employer] Other Start: 01-16-2023(Procedure) ShortThomas FelterErie [facility] CenterStart: 04-24-2022 End: 22-32-5413rhygnaxxshNggiin Felter Other [employer] Other Start: 85-27-5809Yxnwsz outpatient visit 25 minutes Jonathan Valdez [facility] [place]Start: 04-12-2022 End: 19-10-7792arlcaphnmePK Vitaliy [employer] Work Phone: [facility] [employer] Work Phone: Start: 04-12-2022 End: 65-14-5152Kqefmsl encounter procedureDO Vitaliy [employer] Work Phone: [facility] Start: 03-20-2022(Procedure) ShortThomas FelterErie [facility]ores Surgery CenterStart: 03-20-2022 End: 04-42-2499vvkdfuaxcrPkcloi Felter Other [employer] Other Start: 03-08-2022 End: 65-83-7886aykznjaazaZpocar Felter Other [employer] Other Start: 19-49-9526Eashvh outpatient visit 25 minutes Jonathan Valdez [facility] [place]Start: 02-22-2022(Procedure) Short Jonathan FelterErie [facility]ores Surgery CenterStart: 02-22-2022 End: 26-97-0074kmgggxzpabNfknhm Felter Other [employer] Other Start: 39-52-9569Cggetj outpatient new 45 minutes [facility]io [facility]icsStart: 02-15-2022 End: 95-69-3980gpkquwizjpBA Vtialiy [employer] Work Phone: [facility] Work Phone: Start: 02-15-2022 End: 55-05-0472Pgkucjn encounter procedureDO Vitaliy Ball Work Phone: [facility] Start: 02-13-2022 End: 14-93-1458vpjbaqpbixWzakzt Felter Other [employer] Other Start: 76-81-1632Agiggy outpatient visit 25 minutes Jonathan Valdez [facility] [place]Start: 12-26-2021 End: 79-56-8244Swrvcas encounter procedureDO Vitaliy OralWise Phone: [facility] Main CampusStart: 11-30-2021 End: 02-96-0117hnrrgwarykDU VITALIY BROWERcility:X5Eepen: 96-37-6167Qks- procedure evaluation checkThomas Felter Other [employer] Other Start: 09-28-2021 End: 67-72-7734ddamkxiqrtBgaxkq Bantam II Other [employer] Other Start: 11-58-0765Mfelcl follow up visit related to original pxRobert Bantam IIFPG [facility]icsStart: 09-28-2021 End: 10-94-5759Uwdkwbf encounter procedureDO Vitaliy OralWise Phone: [facility] Start: 09-12-2021 End: 91-47-5168fnqkksdwprUcieqqej [place] Other [employer] Other Start: 01-81-8082Kcbyft outpatient visit 15 minutes Melinda SalcidoG [facility]icsStart: 08-17-2021(Post-Op) Post-OpRobert Bantam IIFPG [facility]icsStart: 08-17-2021 End: 84-02-8394kmpfhweralLborwf Bantam II Other [employer] Other start: 07-20-2021(Post-Op) Post-OpRobert Bantam II [facility]icsStart: 07-20-2021 End: 66-77-3849rrstpsmioxTxtzne Bantam II Other [employer] Other Start: 06-24-2021(Prolonged) Prolonged ServicesRobert Bantam IIFPG [facility]icsStart: 06-24-2021 End: 75-62-3839ncmctkcjoePtvvig Andrea II Other [employer] Other Start: 06-17-2021 End: 70-90-6199mfymvxttwhQccbfl Bantam II Other [employer] Other Start: 22-76-3325Bxhxwf outpatient visit 25 minutes Sarai Bantam IIFPG [facility]icsStart: 48-52-3399Omlrd health examinationThomas Felter Other [employer] Other Start: 03-25-2021 End: 04-21-5214mfdqiuebyvMdzyvd Andrea II Other [employer] Other Start: 80-55-8228Atmngzynt encounterRobert Andrea II [facility]PG [facility]icsStart: 03-24-2021 End: 83-87-0131vbyyofpxpnPklbkr Felter Other [employer] Other Start: 81-31-7635Pvlxskmlk encounterThomas FelterFPG [facility]icsStart: 02-22-2021 End: 28-29-6629jqnapaxlhqMjfzog Felter Other [employer] Other Start: 02-09-8227Iouzlv outpatient visit 25 minutes Jonathan FelterFPG [facility]Start: 02-15-2021(Procedure) Short Jonathan [facility]ra [facility] CenterStart: 02-15-2021 End: 65-66-6588cochiijvcbXsrccl Felter Other [facility] [employer] Other Start: 58-61-1235Lbrmizhib encounterThomas FelterFPG [facility]icsStart: 49-67-2528Mlqsfo outpatient visit 15 minutesThomas FelterFPG [facility] CreekStart: 72-02-2484zfpnytmiheZwlkor C Koplas MD Work Phone: radiologyStart: 06-01-2009 End: 98-83-5854Qfpvduo encounter procedureGenie Hdez MD Work Phone: [facility] Procedures DateProcedureProcedure DetailPerforming ClinicianStart: 12-21-4109Nnorpbmkhme timeFrkiley Dias MD Work Phone: Start: 01-02-1223Lkm routine ecg w/least 12 lds trcg only w/o i&rFrancis Chrissy Dias MD Work Phone: Start: 02-50-6109Cpdkd typing serologic rh (d)Jose Antonio Dias MD Work Phone: Start: 38-91-8073Yyxvldqolrhyh metabolic panelFrkiley Dias MD Work Phone: Start: 97-97-9473Txvysing screenRobert Bantam II Comment on above:Result Comment: PERFORMED BY: [address] [place] [address] PATHOLOGIST COASTAL AND ESTUARY SPECIALIST RYAN ALMARAZ M.D.Start: 21-91-6827TH pre/post mri xrayBenjamin Ball DO Work Phone: Start: 04-16-3618LNM of lumbar spine with contrast Vitaliy Ball DO Work Phone: Start: 93-35-3744Meefx X-ray of right hipBenjamin Ball DO Work Phone: Start: 92-01-0328V-ray of right knee, three views Vitaliy [employer] DO Work Phone: Start: 57-23-1189Lbi routine ecg w/least 12 lds w/i&r Antonio Steele MD Work Phone: Start: 42-32-6488Leqwpa-up visitFollow-upMONANCI ARANAIStart: 84-94-2583Rfz routine ecg w/least 12 lds w/i&rMchuck Steele MD Work Phone: Start: 30-83-0546Cferj X-ray of right hipBenrigoberto Ball DO Work Phone: Start: 27-25-1403VN of head without contrastBenjamin Ball DO Work Phone: Start: 58-28-8893Gqclu chest X-rayBenjamin Ball DO Work Phone: Start: 87-58-3755Ftqptzmt identified in Blood by CultureBenjamin Ball DO Work Phone: Start: 04-34-5363Gzioz cultureBenjamin Ball DO Work Phone: Start: 99-61-7679AH LHC & COR Angio w/graftsBenjamin Ball DO Work Phone: Start: 98-00-7661Caukodzb Ball DO Work Phone: Start: 93-45-9083Shr routine ecg w/least 12 lds w/i&r Antonio Steele MD Work Phone: Start: 76-23-0051Vubhpjjfltzd myocardial perfusion stress studyBenangelamin [employer] DO Work Phone: Start: 14-25-5543Ltkghr scan of lower limb veins Vitaliy [employer] DO Work Phone: Start: 72-73-5691Srmqz chest X-rayBenjamin Ball DO Work Phone: Start: 22-37-7781Vrevs X-ray of left hipBenjamin Ball DO Work Phone: Start: 17-60-1267Zyhuu X-ray of left handBenjamin Ball DO Work Phone: Start: 25-95-4923Badmj X-ray of left hipBenjamin Ball DO Work Phone: Start: 06-11-4879Yhxh transthorc r-t 2d w/wo m-mode rec f-up/lmtdBrett R Loredo GEAR ROOM KEEPER-SALES REPRESENTATIVE EDUCATION COURSES Work Phone: Start: 86-19-5166Mgpf transthorc r-t 2d w/wo m-mode rec f-up/lmtdBrett R Loredo GEAR ROOM KEEPER-SALES REPRESENTATIVE EDUCATION COURSES Work Phone: [phone]: 73-06-1201Nvofu metabolic panel calcium total Sammi Loredo GEAR ROOM KEEPER-SALES REPRESENTATIVE EDUCATION COURSES Work Phone: [phone]: 59-07-8196Iqhoe typing serologic rh (d)Sammi Loredo GEAR ROOM KEEPER-SALES REPRESENTATIVE EDUCATION COURSES Work Phone: [phone]: 11-22-1048Tbz routine ecg w/least 12 lds trcg only w/o i&rBrett R Loredo GEAR ROOM KEEPER-SALES REPRESENTATIVE EDUCATION COURSES Work Phone: [phone]: 02-51-3712Sc heart contrast eval cardiac structure&morphStevthien Kowalski MD Work Phone: [phone]: 04-06-8744Gbyoqwdyc colonoscopyDO [employer] Work Phone: Start: 23-07-7363HwzttvhfqktNqcecl Filby MD Work Phone: [phone]: 18-29-1289OE angiography of neck vesselsDO [employer] Work Phone: Start: 00-06-4526Guaqiaob tomography of abdomen and pelvis with contrastDO [employer] Work Phone: Start: 84-68-8484CC angiography of headDO [employer] Work Phone: Start: 10-08-8353OB of head without contrastDO [employer] Work Phone: Start: 19-00-8648Gbqxy chest X-rayDO [employer] Work Phone: Start: 79-90-4122Cvpgfyexv ID (NA Multiplex Assay)DO [employer] Work Phone: Start: 13-89-5501Xcynm culture for bacteria, including anaerobic screenDO [employer] Work Phone: Start: 92-56-5145Rsgfhtmsvpo Panel (PCR)DO [employer] Work Phone: Start: 56-61-9549IPDI-CoV-2, Influenza & RSV (PCR)DO [employer] Work Phone: Start: 41-16-7226Psi routine ecg w/least 12 lds w/i&r Antonio Steele MD Work Phone: Start: 80-75-3772Ponhwga of coronary artery bypass graftingStatus post aorto-coronary artery bypass graftMonanci Steele MD Work Phone: Start: 53-65-7345Jrm routine ecg w/least 12 lds w/i&r Antonio Steele MD Work Phone: Start: 06-28-2023 End: 82-83-1306Zgv bone density study 1/> sites axial Delvin Pineda MD Work Phone: Start: 58-71-4749Wkgxjt-up visitFollow-upRSHIRLEY Orta GRANDEStart: 70-55-0838Eyp routine ecg w/least 12 lds w/i&rRshirley Booth MD Work Phone: Start: 87-82-6307Kvmzzb scan of lower limb veinsDO [employer] Work Phone: Start: 45-67-1251M-ray of left kneeDO Vitaliy Ball Work Phone: Start: 16-25-6857Qtknu X-ray of right hipDO Vitaliy Ball Work Phone: Start: 14-62-7410Jwjcb X-ray of right hipDO Vitaliy Ball Work Phone: Start: 15-53-8415Ejwgi X-ray of right hipDO Vitaliy Ball Work Phone: Start: 24-91-8083Dhthr replacement of right hip joint DO Vitaliy Ball Work Phone: Start: 83-38-9153Cajqu X-ray of right hipDO Vitaliy Ball Work Phone: Start: 23-83-4006Gqygu X-ray of right hipDO Vitaliy Ball Work Phone: Start: 82-08-4746BN of head without contrastDO Vitaliy Ball Work Phone: Start: 19-92-1124Tcsix X-ray of right shoulderDO Vitaliy Ball Work Phone: Start: 81-19-6398Phslk X-ray of left hipDO Vitaliy Ball Work Phone: Start: 98-58-4030FWP screeningDR VITALIY BALLComment on above:Performed By: #### PSASC #### [facility] [address] [place] [address] Dr. Tracy HubbardStart: 25-15-1623JHK of left shoulderDO Vitaliy Ball Work Phone: Start: 81-45-1569Ehbzb X-ray of left elbowDO Vitaliy Ball Work Phone: Start: 73-58-6059Hsike X-ray of left shoulderDO Vitaliy Ball Work Phone: Start: 56-14-9552Ckfds X-ray of right hipDO Vitaliy Ball Work Phone: Start: 83-64-9908Zmppj X-ray of right handDO Vitaliy Ball Work Phone: Start: 31-31-9266JJ pre/post mri xrayDO Vitaliy Brower Work Phone: Start: 75-01-1753EMK of cervical spine without contrastDO Vitaliy Brower Work Phone: Start: 28-20-2634Nsrye X-ray of left hipDO Vitaliy Brower Work Phone: Start: 68-10-1512Jstetttlq for malignant neoplasm of colonThomas Felter Other Start: 13-63-6173Siuybwero for malignant neoplasm of prostateThomas Felter Other Start: 89-72-8716Hhbxfrfvaotp cardiovascular examinationThomas Felter Other Start: 87-64-5751JLQD CNT+DIFF SYN Vitaliy Hdez MD Work Phone: [...] artery bypass graftAntonio Steele MD Work Phone: [phone] of coronary artery bypass graftingStatus post aorto-coronary artery bypass graftAntonio Steele MD Work Phone: History of operative procedure on kneeThomas Felter Other Screening for malignant neoplasm of prostateThomas Felter Other Plan of Treatment DateCare ActivityDetailAuthorStart: 88-51-2761DNO Vaccine (1 - 1-dose 75+ series)RSV Vaccine (1 - 1-dose 75+ series)[facility]: [facility]: 55-87-4290VLlL,Tdap and Td Vaccines (2 - Tdap)DTaP,Tdap and Td Vaccines (2 - Tdap)[facility]Priv[facility] Aquiris SystemStart: 44-26-9138WVoX/Tdap/Td Vaccines (2 - Tdap) DTaP/Tdap/Td Vaccines (2 - Tdap)[facility]: 06-87-5481Ubmso microalbumin profileDTaP,Tdap,Td Vaccine (2 - Tdap)[facility]art: 13-92-6883Iulblkll Cancer Screening DiscussionProstate Cancer Screening DiscussionKettering Health – Soin Medical Centertart: 22-55-0709Zedrspgc specific antigen measurementProstate Cancer Screening DiscussionKettering Health – Soin Medical Centertart: 07-01-2027 Diabetes ScreeningDiabetes ScreeningKettering Health – Soin Medical Centertart: 02-22-2577Bpagnpmb ScreeningDiabetes ScreeningKettering Health – Soin Medical Centertart: 38-70-2940Qdxkkgft Screening Diabetes ScreeningKettering Health – Soin Medical Centertart: 65-01-7107Fbnqgzdtga measurement Creatinine [facility]: 03-27-3684Ccoxcryr mellitus screeningDiabetes ScreeningUC [facility]: 07-77-9775Xbkifchvl measurementPotassium [facility] Start: 16-86-4118Vymvsyep ScreeningDiabetes ScreeningKettering Health – Soin Medical Centertart: 08-25-2025 End: 75-85-9224Ywdsqro encounter jwzziblto02/19/2026 12:00 PM EDT Office Visit Rheumatology [address] [place] [address] Heladio Pineda MD [address] [facility] [place], [place] [id number] Follow up for osteoarthritis/PMR/gout in 6-12months RheumatologyComment on above:Follow up for osteoarthritis/PMR/gout in 6-12months Start: 08-18-2025 End: 93-42-8646Kmeltzc encounter swwkjlfvi46/12/2026 3:20 PM EDT Office Visit [address] [address] Antonio Steele MD [address] [facility] [place] [address] [facility]: 02-82-9644AbgdwwiwejjrerroVffvoywwvhfery [facility]: 06-29-2025 End: 89-65-6240Irjenmx encounter dlefxaowi31/23/2026 9:00 AM EDT Office Visit Rheumatology [address] [facility] [place] [address] Heladio Pineda MD [address] [place] [address] Return for gout/osteoarthritis/pseudogout/low vit fu OV 6-12months.RheumatologyComment on above:Return for gout/osteoarthritis/pseudogout/low vit fu OV 6-12months.Start: 06-27-2025 Screening for osteoporosisBone Density ScanUnEast [facility] Regional [facility] Start: 69-84-7473Tjyluw scan of upper limb arteriesUS arterial duplex [facility]: 72-14-3840QW Upper extremity artery - leftCity Hospitaltart: 36-63-1845Bofzrxqi mellitus screeningDiabetes ScreeningUC [facility]: 01-12-2025 End: 03-02-4882Tbbivfm encounter fcnrixtbk38/06/2025 1:00 PM EDT Office Visit [facility] [address] [place] [address] [place] [address] [place] [address] [facility] 12-22-2024 End: 12-41-8192Cklubnm encounter lmdjtjomp64/15/2025 11:30 AM EDT Office Visit [place] [address] [place] [address] Antonio Steele MD [address] [facility] [address], [address] [place] [address] [facility]: 47-39-4681LvdlsqvhjCity Hospitaltart: 58-17-3193ZaylkpfzgCity Hospitaltart: 40-89-1318TpekmrlmqCity Hospitaltart: 72-48-1466Pynjjrytika of Cardiac Rhythm, SingleRestoration of Cardiac Rhythm, SingleCity Hospitaltart: 51-89-8107Jahdlqsz admission [facility]: 64-62-0861GOKCR-19 Vaccine ( season)COVID-19 Vaccine ( season)[facility] Start: 95-64-3463Xvtwoibhp vaccinationWayne HospitalStbirmingham: 12-03-2024 End: 39-41-8068Cpgro metabolic 2000 panel - Serum or PlasmaBasic Metabolic Panel Lab Routine Multi-vessel coronary artery stenosis Cardiomyopathy, ischemic Exp ected: 12/03/2024 (Approximate), Expires: 11/19/2025[facility] Service Area Work Phone: Comment on above:Expected: 12/03/2024 (Approximate), Expires: 11/19/2025Start: 11-19-2024 End: 68-52-7627Zbrvalhggbrld ExternalCardioversion External Cardiac Services Routine Persistent atrial fibrillation (Multi) Expected: 11/19/2024 (Approximate), Expires: 11/19/2026UnEast [facility] Work Phone: Comment on above:Expected: 11/19/2024 (Approximate), Expires: 11/19/2026Start: 08-13-2025Medicare Annual Wellness VisitMedicare Annual Wellness Visit (AWV)[facility]: 11-07-2024 Influenza vaccinationInfluenza Vaccine (#1)[facility] Start: 00-75-5459Zpkmt X-ray of right hipXR hip RT min 2V(w/wo pelvis)*[facility]: 39-66-6545HI Hip - right 2 [facility]: 10-06-2024 End: 561709-lduldldybfvzof D3 [Mass/volume] in Serum or PlasmaVITAMIN D 25 HYDROXY Lab Routine Vitamin D deficiency Expected: 10/06/2024 (Approximate), Expires: 07/07/2025leveland ClinicComment on above:Expected: 10/06/2024 (Approximate), Expires: 07/07/2025Start: 08-87-1287EmtspvqwiCity Hospitaltart: 09-75-8651Dahbnxmi therapy procedureCity Hospitaltart: 09-30-2024 End: 84-99-3862Wpdqc cultureCity Hospitaltart: 09-30-2024 Hospital admissionCity Hospitaltart: 40-62-4961Nanuyblp to cardiologistCity Hospitaltart: 71-77-6278LjfpzeqdfCity Hospitaltart: 71-48-3361Ttwqmpuj identified in Blood by CultureBlood CultureCity Hospitaltart: 09-30-2024 End: 70-98-4082Zgssjui encounter paetyiyno86/24/2025 10:30 AM EDT Office Visit [address] [place] [address] Antonio Steele MD [address] [facility] 2, [address] [place] [address] [facility] HospitalStart: 84-57-9604YbaigcpcdCity Hospitaltart: 04-61-4536FqcolepktCity Hospitaltart: 04-92-8309Wmxdtqfs admissionCity Hospitaltart: 09-13-2024 End: 91-25-5819Yhkqlz-up lkrjppbbu99/07/2025 10:00 AM EDT [facility] Rheumatology [address] [place] [address] Heladio Pineda MD [address] [place], [place] [phone] follow upRheumatologyComment on above:follow upStart: 09-08-2024 End: 86-27-4998kxnzzbqvxq55/02/2025 10:30 AM EDT Results Only [facility] [address] [place] [address] LABNortSelect Specialty Hospital LaboratoryComment on above: LABStart: 09-05-2024 End: 23-12-8700Xmormozchxhjz ExternalCardioversion External Cardiac Services Routine Persistent atrial fibrillation (Multi) Expected: 09/05/2024 (Approximate), Expires: 08/22/2026[facility] Service Area Work Phone: Comment on above:Expected: 09/05/2024 (Approximate), Expires: 08/22/2026Start: 60-21-0786JaeghkkenCity Hospitaltart: 56-57-3021Pmxedbwp to cardiologistCity Hospitaltart: 28-20-9465Cixpvwat admissionCity Hospitaltart: 08-06-2024 End: 41-59-5936WJM panel - Blood by Automated countCOMPLETE BLOOD COUNT Lab Routine Anemia of chronic disease Expected: 08/06/2024 (Approximate), Expires: 07/07/2025leveland ClinicComment on above:Expected: 08/06/2024 (Approximate), Expires: 07/07/2025Start: 08-06-2024 End: 47-82-7384Ngkxqveghsqrv metabolic 2000 panel - Serum or PlasmaCOMPREHENSIVE METABOLIC PANEL Lab Routine Elevated LFTs Expected: 08/06/2024 (Approximate), Expires: 07/07/2025[facility] Work Phone: Comment on above:Expected: 08/06/2024 (Approximate), Expires: 07/07/2025Start: 08-06-2024 End: 27-05-2647Hveta [Mass/volume] in Serum or PlasmaURIC ACID Lab Routine Hyperuricemia Expected: 08/06/2024 (Approximate), Expires: 11/05/2024leveland ClinicComment on above:Expected: 08/06/2024 (Approximate), Expires: 11/05/2024 Start: 74-95-4424Xompm X-ray of left hipXR hip LT min 2V(w/wo pelvis)*[facility]: 89-75-0069BL Hip - left 2 ViewsCity Hospitaltart: 36-49-4395Ggszr X-ray of left handXR hand LT min 3V* [facility]: 68-30-2819CE Hand - left GE 3 Views [facility]: 06-29-2024 End: 06-29-2025 reactive protein [Mass/volume] in Serum or PlasmaC-REACTIVE PROTEIN Lab Routine Elevated sed rate Elevated C-reactive protein (CRP) Expected: 06/29/2024 (Approximate), Expires: 06/29/2025leveland ClinicComment on above:Expected: 06/29/2024 (Approximate), Expires: 06/29/2025Start: 06-29-2024 End: 97-14-9834Vglgeextifarc metabolic 2000 panel - Serum or PlasmaCOMPREHENSIVE METABOLIC PANEL Lab Routine Elevated LFTs Expected: 06/29/2024 (Approximate), Expires: 06/29/2025[facility] Work Phone: Comment on above:Expected: 06/29/2024 (Approximate), Expires: 06/29/2025Start: 06-29-2024 End: 65-72-6939Rmlstuwqxxe sedimentation rateSEDIMENTATION RATE, WESTERGREN Lab Routine Elevated sed rate Elevated C-reactive protein (CRP) Expected: 06/29/2024 (Approximate), Expires: 06/29/2025leveland ClinicComment on above:Expected: 06/29/2024 (Approximate), Expires: 06/29/2025Start: 06-29-2024 End: 48-01-4678Cnowg [Mass/volume] in Serum or PlasmaURIC ACID Lab Routine Hyperuricemia Expected: 06/29/2024 (Approximate), Expires: 09/28/2024leveland ClinicComment on above:Expected: 06/29/2024 (Approximate), Expires: 09/28/2024 Start: 39-70-6826Fssqj BMI ScreeningAdult BMI ScreeningGreen Cross Hospital Start: 60-30-9236Joycwfm ScreeningTobacco ScreeningProShelby Memorial Hospitalca St[facility] Hospitaltart: 05-20-2024 End: 47-19-9956Ugcsgta encounter /11/2025 10:30 AM EST Appointment [address] [place], [place] [facility] Un[facility]art: 04-28-2024 End: 69-69-6100Taikbvn encounter tujhosfho16/20/2025 8:40 AM EST Office Visit [place] [address] [facility] [address] [place] [address] Antonio Steele MD [address] [facility] 2, [address] [place] [address] [facility]Start: 09-62-1050Qxdsgls ScreeningTobacco ScreeningECU Health North Hospitaltart: 01-01-2025Medicare [facility] Annual Wellness VisitMedicare Advantage Annual Wellness VisitKettering Health – Soin Medical Centertart: 03-17-2024 End: 56-65-6871Pdentjl encounter ryiwuzecn66/09/2024 9:00 AM EST Office Visit Rheumatology [address] [facility] [place] [address] Heladio Pineda MD [address] [facility] [place] [address] for PMR/osteoarthritis/gout fu OV 6monthsRheumatologyComment on above:for PMR/osteoarthritis/gout fu OV 6monthsStart: 02-14-2024 End: 90-42-2595Gcakb 1996 panel - Serum or PlasmaLipid Panel Lab Routine Mixed hyperlipidemia Expected: 02/14/2024 (Approximate), Expires: 02/13/2025[facility] Service Area Work Phone: Comment on above:Expected: 02/14/2024 (Approximate), Expires: 02/13/2025Start: 02-14-2024 End: 48-98-5369Pxtokzd encounter whmgyfovw65/07/2024 2:00 PM EST Office Visit [place] [address] [place] [address] Antonio Steele MD [address] [facility] 2, [address] [place] [address] [facility]: 15-77-0468Myvxi BMI ScreeningAdult BMI ScreeningAdena Health System SystemStart: 85-02-0710SollyjnjtCity Hospitaltart: 50-84-2759IZXWU-19 Vaccine ( season)COVID-19 Vaccine ( season)[facility]: 58-27-1198UETPA-19 Vaccine ( season)COVID-19 Vaccine ( season)[facility]: 67-92-3966Qwcqa-19 Vaccine ( season) Covid-19 Vaccine ( season)[facility]: 86-16-4852EOYGI-19 Vaccine ( season)COVID-19 Vaccine ( season)[facility]: 98-23-9884Akefixgtd vaccinationOhiohealth Grant Medical Center Start: 36-60-7930Hywwfkm referralMetrohealth [facility] Work Phone: Start: 10-18-2023 End: 36-07-3670Pwyazos encounter ppnitspiz26/11/2024 2:40 PM EDT Office Visit [place] [address] [facility] [address] [place] [address] Antonio Steele MD [address] [facility] 2, [address] [place] [address] [facility]: 10-08-2023 End: 43-51-683860862747-udlvdyavlltanw D3 [Mass/volume] in Serum or PlasmaVITAMIN D 25 HYDROXY Lab Routine Vitamin D deficiency Expected: 10/08/2023 (Approximate), Expires: 5CAult[facility] Work Phone: Comment on above:Expected: 10/08/2023 (Approximate), Expires: 07/08/2024Start: 10-08-2023 End: 02-45-2403Uaqma [Mass/volume] in Serum or PlasmaURIC ACID Lab Routine Hyperuricemia Idiopathic chronic gout of multiple sites without tophus Expected: 10/08/2023 (Approximate), Expires: 4CA[facility]man [facility] Work Phone: Comment on above:Expected: 10/08/2023 (Approximate), Expires: 01/07/2024Start: 10-03-2023 End: 42-89-1763Ettohxc encounter fzugzbaph07/26/2024 9:30 AM EDT Office Visit [facility] [address] [place] [address] Travis Lucas MD [address] [place] [address] [facility] CardiologyStart: 09-01-2023 [facility]: 93-19-1279AxnwzwnzyCity Hospitaltart: 71-67-2205Abvrgljzrnk pathogens DNA and RNA panel - Nasopharynx by ROSIE with non-probe detectionCity Hospitaltart: 08-30-2023 Hospital admissionFirMemorial Health Systemtart: 26-74-2252UreueuxgsCity Hospitaltart: 06-29-9360Yzmlgbmq identified in Blood by Culture Blood CultureCity Hospitaltart: 09-79-3075Axvwy culture for bacteria, including anaerobic screenBlood CultureCity Hospitaltart: 08-16-2023 End: 29-00-9755Jdxpjsvudkau / ancillary services udnyrvekcq31/09/2024 10:00 AM EDT Ancillary Procedure [facility] [address] [facility] [address] [place] [address] [facility] CenterStart: 08-10-2023 End: 50-40-0370CHW 12 LeadECG 12 Lead ECG Routine 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 (Multi) Expected: 08/10/2023 (Approximate), Expires: 07/26/2024[facility] Work Phone: Comment on above:Expected: 08/10/2023 (Approximate), Expires: 07/26/2024Start: 08-08-2023 End: 07-08-2024 reactive protein [Mass/volume] in Serum or PlasmaC-REACTIVE PROTEIN (CRP) Lab Routine Elevated sed rate Elevated C-reactive protein (CRP) Expected: 08/08/2023 (Approximate), Expires: 07/08/2024[facility] Work Phone: Comment on above:Expected: 08/08/2023 (Approximate), Expires: 07/08/2024Start: 08-08-2023 End: 29-21-0635Gilygldjbvx sedimentation rateSED RATE WESTERGREN Lab Routine Elevated sed rate Elevated C-reactive protein (CRP) Expected: 08/08/2023 (Approximate), Expires: 07/08/2024[facility] Work Phone: Comment on above:Expected: 08/08/2023 (Approximate), Expires: 07/08/2024Start: 87-84-0731CwsmqxhagCity Hospitaltart: 07-27-2023 End: 11-58-6556Kopugiemvtjpj ExternalCardioversion External Cardiac Services Routine 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 (Multi) 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 Expected: 07/27/2023 (Approximate), Expires: 07/26/2025 [facility] Service Area Work Phone: Comment on above:Expected: 07/27/2023 (Approximate), Expires: 07/26/2025Start: 06-14-2023 End: 66-76-4559Vlaxeyj encounter fbtzskwbo73/07/2024 1:00 PM EST Appointment [facility] - CVU-IVU [address] [place] [phone] Chhaya Whatley MD [address] [place], [place] [address] [facility] - CVU-IVUStart: 06-04-2023 End: 09-45-1292Kvzavap encounter amusnkskz69/26/2024 2:15 PM EST Office Visit [facility] [address] [place] [address] Sarai Booth MD [address] [place] [address] [facility] Physicians CardiologyStart: 06-04-2023 End: 51-28-7926Wnbds metabolic 2000 panel - Serum or PlasmaBasic Metabolic Panel Lab Routine Coronary artery disease involving sycuan coronary artery of sycuan heart without angina pectoris Persistent atrial fibrillation ([facility]-H[facility]) Expected: 06/04/2023 (Approximate), Expires: 06/04/2024ProInfirmary West Health SystemComment on above:Expected: 06/04/2023 (Approximate), Expires: 06/04/2024Start: 06-04-2023 End: 61-45-2925Wsdcncpbbsisw externalCardioversion external Cardiac Services Routine Persistent atrial fibrillation ([facility]-HCC) Expected: 06/04/2023, Expires: 06/04/2024[facility] Work Phone: Comment on above:Expected: 06/04/2023, Expires: 06/04/2024Start: 06-04-2023 End: 06-14-3823SMU W Auto Differential panel - BloodCBC auto differential Lab Routine Coronary artery disease involving sycuan coronary artery of sycuan heart without angina pectoris Persistent atrial fibrillation ([facility]-HCC) Expected: 06/04/2023 (Approximate), Expires: 06/04/2024ProShelby Memorial HospitalCellectar SystemComment on above:Expected: 06/04/2023 (Approximate), Expires: 06/04/2024Start: 05-21-2023 Duplex scan of lower limb veinsUS venous duplex [facility]: 04-12-2023 End: 404213-gxtlmgpketehsk D3 [Mass/volume] in Serum or PlasmaVITAMIN D 25 HYDROXY Lab Routine Vitamin D deficiency Expected: 04/12/2023 (Approximate), Expires: 01/11/2024[facility] Work Phone: Comment on above:Expected: 04/12/2023 (Approximate), Expires: 01/11/2024Start: 04-12-2023 End: 11-64-6259Lnkazwofu (Vitamin B12) [Mass/volume] in Serum or PlasmaVITAMIN B12 BLOOD Lab Routine Vitamin B12 deficiency Expected: 04/12/2023 (Approximate), Expires: 01/11/2024[facility] Work Phone: Comment on above:Expected: 04/12/2023 (Approximate), Expires: 01/11/2024Start: 00-48-7305Wceiqinzfa Health ScreeningBehavioral Health ScreeningKettering Health – Soin Medical Centertart: 26-81-5802Capyddwinf AssessmentDepression AssessmentKettering Health – Soin Medical Centertart: 04-06-2023 End: 03-07-2024 reactive protein [Mass/volume] in Serum or PlasmaC-REACTIVE PROTEIN (CRP) Lab Routine PMR (polymyalgia rheumatica) (HCC) Elevated sed rate Elevated C-reactive protein (CRP) Expected: 04/06/2023 (Approximate), Expires: 03/07/2024[facility] Work Phone: Comment on above:Expected: 04/06/2023 (Approximate), Expires: 03/07/2024Start: 04-06-2023 End: 24-08-1887Dmifcjdllaj sedimentation rateSED RATE WESTERGREN Lab Routine PMR (polymyalgia rheumatica) (HCC) Elevated sed rate Elevated C-reactive protein (CRP) Expected: 04/06/2023 (Approximate), Expires: 03/07/2024[facility] Work Phone: Comment on above:Expected: 04/06/2023 (Approximate), Expires: 03/07/2024Start: 02-13-2023 End: 57-60-6048YtyshxiqnCity Hospitaltart: 59-72-1777Zjchkdzo therapy procedureCity Hospitaltart: 02-10-2023 End: 01-11-2024 reactive protein [Mass/volume] in Serum or PlasmaC-REACTIVE PROTEIN (CRP) Lab Routine Elevated sed rate Elevated C-reactive protein (CRP) Expected: 02/10/2023 (Approximate), Expires: 01/11/2024[facility] Work Phone: Comment on above:Expected: 02/10/2023 (Approximate), Expires: 01/11/2024Start: 02-10-2023 End: 90-09-6607Ihhxrjvdkyr sedimentation rateSED RATE WESTERGREN Lab Routine Elevated sed rate Elevated C-reactive protein (CRP) Expected: 02/10/2023 (Approximate), Expires: 01/11/2024[facility] Work Phone: Comment on above:Expected: 02/10/2023 (Approximate), Expires: 01/11/2024Start: 64-98-3522LjplcspdjCity Hospitaltart: 23-24-5952LbojqputeCity Hospitaltart: 01-05-2023 End: 13-32-026263128068-ymlkktkywjttxx D3 [Mass/volume] in Serum or [facility] Work Phone: Comment on above:Expected: 01/05/2023 (Approximate), Expires: 01/06/2024Start: 01-05-2023 End: 30-86-3240Eebfxkqu [Enzymatic activity/volume] in Serum or [facility] Work Phone: Comment on above:Expected: 01/05/2023 (Approximate), Expires: 03/07/2023Start: 01-05-2023 End: 36-91-7643VGA BY IFA WITH [facility] Work Phone: Comment on above:Expected: 01/05/2023 (Approximate), Expires: 01/06/2024Start: 01-05-2023 End: 03-31-1603GLGTE TB [facility] Work Phone: Comment on above:Expected: 01/05/2023 (Approximate), Expires: 01/06/2024Start: 01-05-2023 End: 67-16-4615Nappxom hepatitis differentiation between hepatitis B and C virus panel - Serum or PlasmaOhiohealth Van Wert Hospital Work Phone: Comment on above:Expected: 01/05/2023 (Approximate), Expires: 01/06/2024Start: 01-05-2023 End: 42-00-0916Wrxwru citrullinated peptide IgG Ab [Units/volume] in Serum or PlasmaOhiohealth Van Wert Hospital Work Phone: Comment on above:Expected: 01/05/2023 (Approximate), Expires: 01/06/2024Start: 12-94-5076Blfxk-19 Vaccine ( season)Covid- 19 Vaccine ( season)[facility]: 99-81-6440Ijymobgqo vaccinationKettering Health – Soin Medical Centertart: 38-93-8287Ziwcruqgy complement CH50 level [facility]: 02-35-5478UuwaxnpobCity Hospitaltart: 90-30-0291Cxwbl X-ray of right shoulderXR shoulder RT min 2V* [facility]: 89-01-9998Kjadf X-ray of left hipXR hip LT min 2V(w/wo pelvis)*[facility]: 04-09-2022 Depression AssessmentDepression AssessmentKettering Health – Soin Medical Centertart: 06-06-2021 Covid-19 Vaccine (4 - Pfizer series)Covid-19 Vaccine (4 - Pfizer series) [facility]: 22-66-3917Rdbafbwea vaccinationINFLUENZA (Season Ended) [facility]: 23-93-5203Bnwelqxpp B Vaccines (1 of 3 - Risk 3-dose series)Hepatitis B Vaccines (1 of 3 - Risk 3-dose series)[facility]: 53-92-6435DTO High Risk: (Elderly (60+) or Population) (1 - Risk 60-74 years 1-dose series)RSV High Risk: (Elderly (60+) or Population) (1 - Risk 60-74 years 1-dose series)[facility]: 06-18-3734YEE patients and/or patients aged 60+ years (1 - 1-dose 60+ series)RSV patients and/or patients aged 60+ years (1 - 1-dose 60+ series)[facility]: 37-71-6903WAC Vaccine (1 - 1-dose 60+ series)RSV Vaccine (1 - 1-dose 60+ series)[facility] Start: 30-95-2864ZHEASFQU SCREENDIABETES SCREENKettering Health – Soin Medical Centertart: 12-16-2014 PROSTATE CANCER SCREENING DISCUSSIONPROSTATE CANCER SCREENING DISCUSSION [facility]: 27-44-3946Bhafvlekujluwm of varicella zoster vaccine Zoster (Shingles) Vaccine (1 of 2)[facility] Aquiris SystemStart: 12-16-2009 Pneumococcal Vaccine: 50+ (1 of 1 - PCV)Pneumococcal Vaccine: 50+ (1 of 1 - PCV) [facility]: 30-08-2353Kbyagusu specific antigen measurementPSA Prostate Cancer ScreeningUnACMC Healthcare System: 12-16-2009 Screening for malignant neoplasm of colonKettering Health – Soin Medical Centertart: 12-16-2009 SHINGRIX VACCINE (1 of 2)SHINGRIX VACCINE (1 of 2)[facility]: 23-52-9866Hekhkx Vaccines (1 of 2)Zoster Vaccines (1 of 2)[facility]: 29-38-2251Ucfdcyqat (FIT-DNA)Cologuard (FIT-DNA)[facility]: 42-25-0390YqiacftstejNdsivyvgyuiUvayvogou ClinicStart: 12-16-2004 Colorectal Cancer ScreeningColorectal Cancer ScreeningKettering Health – Soin Medical Centertart: 73-75-9233JL COLONOGRAPHYCT COLONOGRAPHYKettering Health – Soin Medical Centertart: 18-59-1703Sfigm Occult BloodFecal Occult BloodKettering Health – Soin Medical Centertart: 60-49-8210Mhbhtddxt for malignant neoplasm of colonKettering Health – Soin Medical Centertart: 68-57-3006MLODMDLOSJWUQ SIGMOIDOSCOPYKettering Health – Soin Medical Centertart: 52-72-6446Ylxdm 1996 panel - Serum or Plasma Lipid ScreeningKettering Health – Soin Medical Centertart: 59-57-5205Fhlki panelLipid Screening [facility]ert[facility]: 85-51-5446JCZBT SCREENLIPID SCREENKettering Health – Soin Medical Centertart: 23-04-0493Hsurmtbeh A Vaccines (1 of 2 - Risk 2-dose series)Hepatitis A Vaccines (1 of 2 - Risk 2-dose series)[facility]: 12-16-1978 Pneumococcal vaccinationPneumococcal Vaccine (1 of 2 - PCV)[facility]: 19-96-5104Dprja microalbumin profileKettering Health – Soin Medical Centertart: 11-71-6377Qgkvb BMI Follow Up PlanAdult BMI Follow Up PlanECU Health North Hospitaltart: 55-48-3769Gqmppc PCP Team Chronic Disease VisitAnnual PCP Team Chronic Disease VisitKettering Health – Soin Medical Centertart: 16-58-1420Lpdszuh ScreeningAnxiety ScreeningKettering Health – Soin Medical Centertart: 41-51-0621Mztzqhzuoj ScreeningDepression ScreeningKettering Health – Soin Medical Centertart: 46-63-7374Ygdytudq mellitus screeningDiabetes ScreeningUC [facility]: 71-57-6525Sqqmwgyml B surface antibody levelLDL CholesterolKettering Health – Soin Medical Centertart: 31-68-1115Fmhctmomq C screeningHepatitis C ScreeningUC [facility]: 12-16-1977 HIV SCREENINGHIV SCREENINGKettering Health – Soin Medical Centertart: 23-04-1632FSZ screeningHIV ScreeningKettering Health – Soin Medical Centertart: 97-89-1484Hrzom depression screening assessment DEPRESSION SCREENINGECU Health North Hospitaltart: 68-70-2284UZVBK-19 VACCINE (1) COVID-19 VACCINE (1)[facility]: 24-80-6074Dvwfhiodtudo Vaccine: 65+ Years (1 of 2 - PCV)Pneumococcal Vaccine: 65+ Years (1 of 2 - PCV)[facility]: 77-26-9175Afxhdlsbvxxl Vaccine: Pediatrics (0 to 5 Years) and At-Risk Patients (6 to 64 Years) (1 of 2 - PCV)Pneumococcal Vaccine: Pediatrics (0 to 5 Years) and At-Risk Patients (6 to 64 Years) (1 of 2 - PCV) [facility]: 88-70-7957QVZ Vaccines (1 of 1 - Standard series)MMR Vaccines (1 of 1 - Standard series)[facility]: 06-67-7749Yljtqs wellness visitMedicare Initial Physical (IPPE) [facility]: 22-18-2215RBN screeningHIV Screening [facility]: 94-51-0783Fifsa panelLipid Panel [facility]Medicare Annual Wellness Visit Medicare Annual Wellness Visit (AWV)[facility]: 98-44-3377Olobbbkjd for malignant neoplasm of colonUnACMC [facility]: 66-53-8075Hyqitfa stimulating hormone measurementTSH Level [facility] End: 50-00-8118Bfycu metabolic 2000 panel - Serum or PlasmaBasic metabolic panel Lab STAT STAT (Lab) for 1 Occurrences starting 01/29/2024 until 01/29/2024 [facility] Work Phone: Comment on above:STAT (Lab) for 1 Occurrences starting 01/29/2024 until 01/29/2024 End: 89-27-0399Xswwu metabolic 2000 panel - Serum or PlasmaBasic Metabolic Panel Lab Routine Morning draw (Lab) for 3 Occurrences starting 01/30/2024 until [facility] Work Phone: Comment on above:Morning draw (Lab) for 3 Occurrences starting 01/30/2024 until 02/01/2024 reactive protein [Mass/volume] in Serum or PlasmaC-REACTIVE PROTEIN Lab Routine Elevated sed rate Elevated C-reactive protein (CRP) 06/30/2024 10:15AM [facility] End: 46-39-5236Aocnvbp catheterization studyCardiac Catheterization Procedure Cardiac Cath Routine Atrial fibrillation, unspecified type (Multi) Once for 1 Occurrences starting 01/29/2024 until 01/29/2024[facility] Service Area Work Phone: Comment on above:Once for 1 Occurrences starting 01/29/2024 until 01/29/2024ardiac catheterization studyCardiac Catheterization Procedure Cardiac Cath Routine Atrial fibrillation, unspecified type (Multi) 01/29/2024 1:18 PM EDTWay[facility] Work Phone: End: 11-56-7589TRV W Auto Differential panel - BloodCBC and Auto Differential Lab STAT STAT (Lab) for 1 Occurrences starting 01/29/2024 until 01/29/2024 [facility] Work Phone: Comment on above:STAT (Lab) for 1 Occurrences starting 01/29/2024 until 01/29/2024 End: 10-20-4518JXI W Auto Differential panel - BloodCBC and Auto Differential Lab Routine Morning draw (Lab) for 3 Occurrences starting 01/30/2024 until 02/01/2024[facility] Work Phone: Comment on above:Morning draw (Lab) for 3 Occurrences starting 01/30/2024 until 02/01/2024omplement C3 [Mass/volume] in Serum or PlasmaAultman Alliance Community HospitalComplement C4 [Mass/volume] in Serum or [facility] HospitalComprehensive metabolic 1999 panel - Serum or PlasmaAultman Alliance Community HospitalComprehensive metabolic 1999 panel - Serum or PlasmaCOMPREHENSIVE METABOLIC PANEL Lab Routine Elevated LFTs 06/30/2024 10:15 AM EDTCleveland ClinicCT Abdomen and Pelvis W contrast IV [facility] End: 44-43-4701EU watchman full contrastZUN[facility] Service Area Work Phone: Comment on above:Once for 1 Occurrences starting 06/13/2024 until 06/13/2024 End: 01-69-0261GLL-AXIAL SKELETONDXA-AXIAL SKELETON Radiology Routine Steroid- induced osteoporosis 1 Occurrences starting 01/05/2023until 02/04/2024[facility] Work Phone: Comment on above:1 Occurrences starting 01/05/2023 until 02/04/2024 End: 30-51-2979EMS-FOREARM SKELETONDXA-FOREARM SKELETON Radiology Routine Steroid-induced osteoporosis 1 Occurrences starting 01/05/2023 until 02/04/2024 [facility] Work Phone: Comment on above:1 Occurrences starting 01/05/2023 until 02/04/2024 End: 28-81-1027QYU 12 leadWayne Hospital Work Phone: Comment on above:Once for 1 Occurrences starting 01/30/2025 until 01/30/2025s needed until discontinued starting 01/30/2025 End: 25-35-9645IAJ 12 lead dailyECG 12 lead daily ECG Routine Daily for 3 Days starting 01/29/2024 until 01/31/2024[facility] Work Phone: Comment on above:Daily for 3 Days starting 01/29/2024 until 01/31/2024Electrocardiogram, 12-lead PRN ACS symptomsElectrocardiogram, 12-lead PRN ACS symptoms ECG Routine As needed until discontinued starting 01/29/2024[facility] Work Phone: Comment on above:As needed until discontinued starting 01/29/2024Erythrocyte sedimentation rateSEDIMENTATION RATE, WESTERGREN Lab Routine Elevated sed rate Elevated C-reactive protein (CRP) 06/30/2024 10:15 AM EDTCleveland Clinic End: 88-14-9701Vbvwdmljz spirometry InstructIncentive spirometry Instruct Respiratory Care Routine Once for 1 Occurrences starting 01/29/2024 until 01/29/2024[facility] Service Area Work Phone: Comment on above:Once for 1 Occurrences starting 01/29/2024 until 01/29/2024 End: 39-42-2671Aspnguzym [Mass/volume] in Serum or PlasmaMagnesium Lab STAT STAT (Lab) for 1 Occurrences starting 01/29/2024 until 01/29/2024[facility] Work Phone: Comment on above:STAT (Lab) for 1 Occurrences starting 01/29/2024 until 01/29/2024 End: 92-95-8268Lbjpabzko [Mass/volume] in Serum or PlasmaMagnesium Lab Routine Morning draw (Lab) for 3 Occurrences starting 01/30/2024 until 02/01/2024 [facility] Work Phone: Comwizg on above:Morning draw (Lab) for 3 Occurrences starting 01/30/2024 until 02/01/2024MR Lumbar spine WO and W contrast IV [facility] HospitalPatient EducationMemorial Health System [facility] Work Phone: Patient referralMemorial Health System [facility] Work Phone: End: 15-44-8268Mzyfcjhocum time (PT)Protime-INR Lab STAT STAT (Lab) for 1 Occurrences starting 01/29/2024 until 01/29/2024[facility] Work Phone: Comment on above:STAT (Lab) for 1 Occurrences starting 01/29/2024 until 01/29/2024 End: 22-99-7034Xljfryzwtrx time (PT)Protime-INR Lab Routine Morning draw (Lab) for 3 Occurrences starting 01/30/2024 until 02/01/2024[facility] Work Phone: Comment on above:Morning draw (Lab) for 3 Occurrences starting 01/30/2024 until 02/01/2024Smith extractable nuclear Ab [Units/volume] in SerumAultman Alliance Community Hospital End: 00-76-1071Ghpwk Interpretation of outside [facility] Service Area Work Phone: comment on above:Once for 1 Occurrences starting 01/30/2025 until 01/30/2025SYNOVIAL FLUID CRYSTALS B/OSYNOVIAL FLUID CRYSTALS B/O Lab Routine Swelling of Knee Joint Ordered: 06/01/2009[facility] Comment on above:Ordered: 06/01/2009Urate [Mass/volume] in Serum or PlasmaURIC ACID Lab Routine Hyperuricemia 06/30/2024 10:15 [facility] Immunizations Immunization DateImmunizationNotesCare GmyxhzfiZhbqfqqx41-26-8223tpeugyrtu, seasonal, injectableAntonio Steele MD Work Phone: [facility] Work Phone: [phone]k virus vaccine, unspecified formulationAntonio Steele MD Work Phone: [facility] Work Phone: [phone]xqxtpz, injectable, quadrivalent, preservative freeBenjamin Ball Other [facility]12-28-2023influenza virus vaccine, unspecified formulationAntonio Steele MD Work Phone: [facility] Work Phone: [phone]yiygik, injectable, quadrivalent, contains preservativeRobert Bantam II Other [employer]ior [employer] Other 10627981-89-2301rjkuefwfc virus vaccine, split virus (incl. purified surface antigen)Jonathan Samano Other [facility] CenterMxavah88-18-7764xslsjylkg, injectable, quadrivalent, preservative LynseyO Vitaliy Brower Work Phone: [facility]10-31-2022influenza virus vaccine, unspecified formulationHeladio Pineda MD Work Phone: [facility] CenterTpvzkd37-65-7482TPFJA-77 mRNA, Comirnaty (Pfizer)DO Vitaliy Brower Work Phone: [facility]10-12-2021influenza virus vaccine, split virus (incl. purified surface antigen)Jonathan Samano Other [employer] Other 10746636-20-5690Bmkugiav trivalent influenza vaccine, adjuvanted, preservative freeBone [facility] CenterHghnil41-81-4286xgsfaoowf virus vaccine, unspecified formulationHeladio Pineda MD Work Phone: [facility]03-19-2021COVID-19 mRNA, Comirnaty (Pfizer)DO Vitaliy Brower Work Phone: [facility]03-09-2021COVID-19 mRNA, Comirnaty (Pfizer)DO Vitaliy Brower Work Phone: [facility]02-26-2021COVID-19 mRNA, Comirnaty (Pfizer)DO Vitaliy Brower Work Phone: [facility]02-05-2021diphtheria, tetanus toxoids and acellular pertussis vaccine, unspecified formulationThomas Felter Other [facility]01-29-2021Kenalog -40 mgThomas Felter Other [employer] Other 10386122-18-8425plaskggxb virus vaccine, split virus (incl. purified surface antigen)Jonathan Felter Other [facility] CenterQewjvh26-13-9895gzemaviwf virus vaccine, unspecified formulationDO [employer] Phone: [facility]07-27-2020Kenalog -40 mgThomas Felter Other [employer] Other 02963892-76-1723Iqjkkpy -40 mgThomas Felter Other [employer] Other 09535938-77-9716pcerfytgi virus vaccine, split virus (incl. purified surface antigen)Jonathan Felter Other [facility] CenterCgfujr57-34-2898aqbtkdsxy virus vaccine, unspecified formulationDO [employer] Phone: [facility]12-31-2018Kenalog -40 mgThomas Felter Other [employer] Other 10-613633-52-3423ghpsldbou virus vaccine, split virus (incl. purified surface antigen)Jonathan Vieiraer Other [employer] Other 10-918876-21-5563miatbwjba virus vaccine, unspecified formulationDO [employer] Phone: [facility]10-15-2018Influenza, injectable, Madin Nolvia Canine Kidney, quadrivalent with preservativeBone Hosp [facility] CenterKdbpso64-48-6229Ryltsjd -40 mgThomas Felter Other [employer] Other 02964320-77-6911Awumzfk -40 mgThomas Felter Other [employer] Other Payers DatePayer CategoryPayerPolicy [id number] 2023Medicare (Managed Care) [id number] 2023Medicare [facility] MEDICARE [id number] Medicare1.2.840.931991.1.13.159.2.7.3.740360.315 [id number] 2.840.1.214080.3.579.2.37956-32-4944Iwnbysy5042916 2.0.1.250263.3.579.2.77519-29-7395Qlxbail3476673 2.840.1.661194.3.579.2.53876-84-4642Biztrne6535973 2.16.840.1.293283.3.579.2.81453-53-8757Kretfhy27313706 2.16.840.1.546254.3.579.2.387956-43-3998Elwlezg64769249 2.16.840.1.039406.3.579.2.100529-04-8686Dsvysrd2505167 2.16840.1.054283.3.579.2.078254-50-4683Aiobyvf6831043 2.160.1.668079.3.579.2.271759-38-0620Pivfdlx2131481 2..1.863820.3.579.2.247246-51-3533Zilwvll02709550 2..1.044465.3.579.2.875936-34-2420Xronbqt88634838 2..1.233094.3.579.2.182434-51-9394Mbfxejz242155180 2..1.523553.3.579.2.235620-54-0001Akoocra205028022 2..1.146586.3.579.2.530762-47-4682Syxejzr602746262 2..1.176718.3.579.2.353517-74-8274Ocjnpkv895612890 2..1.730412.3.579.2.993984-00-4381Csfpntd392938564 2..1.518846.3.579.2.347088-50-6194Nrdzpdh042828941 2.0.1.215675.3.579.2.842140-02-3040Ldrczgb761438622 2.0.1.074549.3.579.2.939261-43-6517Vplupqv974688086 2..1.916047.3.579.2.195425-39-2883Bjvqmwh85230087 2..1.365656.3.579.2.185 [id number] 2.840.1.709693.19 07-98-5061Gxpxblf Health [id number] MCR [id number] o04lm7k5-8831-2p07-x1zj-0b7869m5pz6cZyyereo35269719 2..1.763418.3.579.2.366Visqnjc28734460 2..1.437621.3.579.2.531 Dwabmzb38028735 2..1.013150.3.579.2.396Atdtjzf81504485 2..1.263927.3.579.2.220Xszfmfw79636783 2.0.1.928302.3.579.2.531 Lespimg92944511 2..1.685367.3.579.2.050Ikinwai79551118 2..1.964246.3.579.2.606Epqwtle47503657 2.840.1.544230.3.579.2.531 Votgsqv66440769 2.840.1.588490.3.579.2.166Impzidg19406219 2.0.1.658724.3.579.2.673Pxvqegx72576245 2.16.840.1.343597.3.579.2.531 Mrcmabe45804646 2.16.840.1.580483.3.579.2.003Prekqce85643736 2.16.840.1.204247.3.579.2.596Jnaywvn48249606 2.16.840.1.443697.3.579.2.531 Social History DateTypeDetailFacilityTobacco smoking status NHISUnknown if ever smokedKettering Health – Soin Medical Centertart: 78-11-6916Mxl Assigned At BirthNot on fileKettering Health – Soin Medical Centertart: 01-05-2023 End: 53-19-4329Vba Assigned At [facility]: 07-04-2021 End: 79-24-3585Kstfvkv smoking status NHISNever smoked tobacco (finding) [facility]: 21-26-6655Khl Assigned At BirthMalVan Wert County Hospitaltart: 01-05-2023 End: 46-49-9296Plauesj intakeCurrent drinker of alcohol (finding)[facility]ertart: 01-05-2023 End: 62-26-0432Lqeaxyd intake[facility]: 07-09-2023 National Score (1-100), lower number is lower mhku88PtrkpeimwKettering Health – Soin Medical Centertart: 01-02-2023 End: 02-70-4997Izkyieh use and exposureSmokeless tobacco non-userProMedica Health SystemStart: 07-17-2023 End: 32-79-2806Jriuhrwv to SARS-CoV-2 (event)Not sureUC [facility]: 07-09-2023 End: 30-75-1822UocBqgd (finding)[facility] Hospital[facility]: 45-09-5365KSEM Follow upSDOH Follow upMemorial [facility] Work Phone: Medical Equipment Procedure CodeEquipment CodeEquipment Original TextEquipment IdentifierDates Arthroplasty, hip, total, anterior approachAcetabular shell ([id number] FDAStart: 77-67-0752Siufahgevzzm, hip, total, anterior approachCeramic femoral head prosthesis ()[id number] FDAStart: 42-93-7765Wsmpiolwwnif, hip, total, anterior approachCoated hip femur prosthesis, modular ()[id number] FDAStart: 10-06-5451Poswhccplrny, hip, total, anterior approachNon-constrained polyethylene acetabular liner ()[id number] FDAStart: 11-00-0029Mjbqqlbblnpt, hip, total, anterior approachAcetabular shell()[id number] FDAStart: 04-87-8424Dsduaknlbyhu, hip, total, anterior approachCeramic femoral head prosthesis()[id number])[id number])[id number] FDAStart: 02-13-2023 Arthroplasty, hip, total, anterior approachCoated hip femur prosthesis, modular ()[id number])[id number])[id number] FDAStart: 84-46-8804Fxkmnueshtwl, hip, total, anterior approachNon-constrained polyethylene acetabular liner ()[id number])[id number])[id number] FDAStart: 26-29-1613Yjwgje, Closure, 27mm Watchman Flx Pro Laac - [id number]_yyvVbkqw: 01-29-2024 Goals DatePatient GoalDesired Activity/State Functional Status RgzrHbyjwthnckCcfdkpPomltdhw31-98-8644Owvsekmlfm [facility] Work Phone: [phone]fibfgkd statusUnEast [facility] Regional Hospital Work Phone: [phone]zpmbp - suicide severity rating scale screener - recent [C-SSRS][facility] Work Phone: [phone] statusPatient at Baseline [facility] Work Phone: [phone]ldjanqs statusPatient at Baseline [facility] Work Phone: [phone] statusPatient at Baseline [facility] Work Phone: [phone] statusPatient at Baseline [facility] Work Phone: [phone] statusPatient at Baseline [facility] Work Phone: [phone]frx statusDisability Status Patient at BaselineMet[facility] Work Phone: [phone] you deaf, or do you have serious difficulty hearingNo 11/27/2013 9:53 AM EDT Jessica Shearer ([employer] Wireman)(Hist) [facility] Work Phone: [phone] you blind, or do you have serious difficulty seeing, even when wearing glassesNo 11/27/2013 9:53 AM EDT Jessica Shearer ([employer] Wireman)([facility]) [facility]08-21-2014Do you have serious difficulty walking or climbing stairsNo 11/27/2013 9:53 AM EDT Jessica Shearer ([employer] Wireman)(Hist) [facility]08-21-2014Do you have difficulty dressing or bathingNo 11/27/2013 9:53 AM EDT Jessica Shearer ([employer] Wireman)([facility]) [facility]08-21-2014 Because of a physical, mental, or emotional condition, do you have difficulty doing errands alone such as visiting a physician's office or shoppingNo 11/27/2013 9:53 AM Jessica Villar ([employer] Wireman)(Hist) [facility] Mental Status FchoHvsrvtstcxCssxuuZionunhb82-72-9353Bdbtszgkw functionCognitive Status Patient at [facility] Work Phone: [phone] functionCognitive Status Patient at BaselineMet[facility] Work Phone: [phone] functionCognitive Status Patient at [facility] Work Phone: [phone]wyk functionCognitive Status Patient at [facility] Work Phone: [phone] functionCognitive Status Patient at [facility] Work Phone: [phone]w of a physical, mental, or emotional condition, do you have serious difficulty concentrating, remembering, or making decisionsNo 11/27/2013 9:53 AM EDT Jessica Shearer ([employer] Wireman)(Hist) [facility] Clinical Notes 01-05-2021 to 01-30-2025 Note Date & TkxrNwzhZzgwaehu82-82-3932 Hospital Discharge instructions* Discharge Instructions* Ric Luna [...] you well! Dr. Luna documented in this [facility] Work Phone: 1(431) 251-755410-24-2025 Consult note* Tyson Perkins MD - 01/30/2025 [...] central cord stenosis and was transferred to [facility]. 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 Pt had epidural 2 weeks ago and is complaining of RLE numbness and pain from buttocks down to his toes. Per OSH MRI shows severe canal narrowing. Pt A&Ox4. [facility] Work Phone: 1(312) 832-971110-24-2025 Emergency department Note* Urmila Burgess RN - 01/30/2025 1:39 AM EDT Pt to ED as a transfer from [facility] for a neurosurgery consult. Pt had epidural 2 weeks ago and is complaining of RLE numbness and pain from buttocks down to his toes. Per OSH MRI shows severe canal narrowing. Pt A&Ox4. documented in this encounterUnEast [facility] Hospital Work Phone: 1(539) 190-323309-15-2025 History of Present illness Narrative* Antonio Steele [...] exam, discussion and plan. documented in this encounterWayne Hospital Work Phone: 1(793) 730-719309-15-2025 Instructions* Patient Instructions* Celia Alves LPN - [...] through Care Everywhere. * Heart Healthy Diet (Georgian) documented in this encounterWayne Hospital Work Phone: 1([phone]) 794-122809-08-2025 History of Present illness Narrative* Keila Garcia [...] done in office today documented in this [facility] Work Phone: 1([phone]) 119-709209-04-2025 Progress note Author Antonio Steele [facility] HospitalNote Date/TimeSeptember 2024 9:39am [place] [address] Cardiology Progress Note Signed Patient: Esme Kaminski MR#: [id number] : 1960 Acct:[id number] Age/Sex: 63 / M Adm Date: 5 Loc: Room: [address] [place] [address] Type: ADM IN Attending Dr: Antonio Steele [...] <Electronically signed by MD Antonio Steele> 12/11/24938 [facility] Work Phone: 1(836) 555-817009-04-2025 Procedure [place] [id number] Cardioversion Procedure Note Signed Patient: Esme Kaminski MR#: [id number] : 1960 Acct:[id number] Age/Sex: 63 / M Adm Date: 5 Loc: Room: [address] [place] [address] Type: ADM IN Attending Dr: Antonio Steele [...] Steele MD 12/11/24938 Signed By: 12/11/24 09 [facility]09-04-2025 [place] [address] Cardiology Progress Note Signed Patient: Esme Kaminski MR#: [id number] : 1960 Acct:[id number] Age/Sex: 63 / M Adm Date: 5 Loc: Room: [address] [place] [address] Type: ADM IN Attending Dr: Antonio Steele [...] Steele MD 12/11/2438 Signed By: 12/11/24 0939 [facility]09-03-2025 Progress note Author Antonio Steele [facility] HospitalNote Date/TimeSeptember 2024 11:34am [place] [address] Cardiology Progress Note Signed Patient: Esme Kaminski MR#: [id number] : 1960 Acct:[id number] Age/Sex: 63 / M Adm Date: 5 Loc: Room: [address] [place] [address] Type: ADM IN Attending Dr: Antonio Steele [...] <Electronically signed by MD Antonio Steele> 12/10/24 1138 [facility] Work Phone: 1(955) 780-309909-03-2025 [place] [address] Cardiology Progress Note Signed Patient: Esme Kaminski MR#: [id number] : 1960 Acct:[id number] Age/Sex: 63 / M Adm Date: 5 Loc: Room: [address] [place] [address] Type: ADM IN Attending Dr: Antonio Steele [...] MD 12/10/24 1133 Signed By: 12/10/24 1134 [facility]09-02-2025 History and physical note Author Antonio Steele [facility] HospitalNote Date/TimeSeptember 2024 12:08pm [place] [address] Cardiology H&P Signed Patient: Esme Kaminski MR#: [id number] : 1960 Acct:[id number] Age/Sex: 63 / M Adm Date: 5 Loc: Room: [address] [place] [address] Type: ADM IN Attending Dr: Antonio Steele [...] of systems: Palpitation and shortness of breath [facility] Medical History (Updated 12/09/24 @ 12:08 [...] signed by MD Antonio Steele> 12/09/24 1208 [facility] Work Phone: 1(511) 370-402809-02-2025 [place] [address] Cardiology H&P Signed Patient: Esme Kaminski MR#: [id number] : 1960 Acct:[id number] Age/Sex: 63 / M Adm Date: 5 Loc: Room: [address] [place] [address] Type: ADM IN Attending Dr: Antonio Steele [...] of systems: Palpitation and shortness of breath [facility] Medical History (Updated 12/09/24 @ 12:08 [...] MD 12/09/24 1158 Signed By: 12/09/24 1208 [facility]09-02-2025 Evaluation note* Diagnosis Onset Date Resolution [...] 2 diabetes mellitus with hyperglycemiaacuteOctober 2024 2:23pm [facility] Work Phone: 1(795) 593-339409-02-2025 Evaluation note* Diagnosis Onset Date Resolution Status [...] 10:02amOther chronic paindeleted January 29, 2025 10:02am [facility] Work Phone: 1(385) 601-699709-02-2025 Evaluation note* Diagnosis Onset Date Resolution Status [...] 2 diabetes mellitus with hyperglycemiaacuteOctober 2024 1:53pm [facility] Work Phone: 1(779) 788-416009-02-2025 Evaluation note* Diagnosis Onset Date Resolution Status [...] mass of left upper extremityacuteNovember 2024 3:01pm [facility] Work Phone: 1(567) 531-116808-13-2025 History of Present illness Narrative* Antonio Steele [...] systolic dysfunction I suggested trial of low-dose Clnomj96 mg daily. I advised him to monitor [...] exam, discussion and plan. documented in this [facility] Work Phone: 1([phone]) 703-965108-13-2025 Instructions* Patient Instructions* Jasmine Coello LPN - [...] cardioversion( in 3 weeks) documented in this [facility] Work Phone: 1(126) 337-257907-17-2025 Evaluation note* Diagnosis Onset Date Resolution Status [...] 12:22pmHistory of total right hip arthroplastyacuteOct2024 12:22pm [facility] Work Phone: 1(646) 132-532407-02-2025 Evaluation note* Diagnosis Onset Date Resolution Status [...] leg without foot, left noneactiveSeptember 2024 9:33am [facility] Work Phone: 1(375) 431-296507-02-2025 Evaluation note* Diagnosis Onset Date Resolution Status [...] spondylosis with radiculopathy, lumbar regionacuteSeptember 2024 9:45am [facility] Work Phone: 1([phone]) [phone] Consult note Author Lala Arce [facility] Date/TimeJune 2024 11:38[place] [id number] Cardiology Consult Note Signed Patient: Esme Kaminski MR#: [id number] : 1960 Acct:[id number] Age/Sex: 63 / M Adm Date: 5 Loc: 3T Room: [address] [place] [address] Type: ADM INOo Attending Dr: Leidy Nuno DO Copies to: DO Lala Hannah MD, [facility] Leidy Nuno DO~ Cardiology HPI History of Present Illness Consult Date: 10/01/24 Reason for Consult: Hypotension HPI: Mr. Kaminski is a 63 year old male who is being seen at request of the hospitalist for hypotension. The patient was discharged 48 hours from [facility] after having admission for chest pain leading to diagnostic heart catheterization which revealed patent for coronary bypass farooq rgery grafts including RIVAS graft to the LAD, saphenous vein graft to diagonal, saphenous vein graft to obtuse marginal, saphenous vein graft to the RCA. His sycuan coronary arteries were occluded. Ejection fraction measured [...] that will be directed by his primary alternative medicine practitioner. 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 CENTERMarvin Arce> 10/01/24 1138 [facility] Work Phone: 1([phone]) [phone] [place] [address] Hospitalist H&P Signed Patient: Esme Kaminski MR#: [id number] : 1960 Acct:[id number] Age/Sex: 63 / M Adm Date: 5 Loc: Room: [address] [place] [address] Type: ADM INOo Attending Dr: Leidy Nuno DO Copies to: DO Ada Hannah APRN Leidy Nuno DO~ [facility] DATE OF EXAMINATION: 09/30/24 CHIEF COMPLAINT: Presyncope [...] obtained, negative unless noted in the HPI [facility] Source: Old Records Reviewed Medical History [...] % (Auto) 11.5 % (.) 09/30/24 14:21 [place] % (Auto) 3.9 % (.) 09/30/24 14:21 Eos % (Auto) 0.2 % (.) 09/30/24 14:21 Baso % (Auto) 0.6 % (.) 09/30/24 14:21 Nucleat RBC Rel Count 0.1 /100 WBC (0-0.5) 09/30/24 14:21 Neut # (Auto) 14.2 x10E3/uL (1.8-7.7) H 09/30/24 14:21 Lymph # (Auto) 1.9 x10E3/uL (1.00-4.8) 09/30/24 14:21 [place] # (Auto) 0.7 x10E3/uL (0.0-0.8) 09/30/24 14:21 [...] 1604 Signed By: 09/30/24 1653 10/01/24 1317 [facility]06-25-20[place] [address] Cardiology Consult Note Signed Patient: Esme Kaminski MR#: [id number] : 1960 Acct:[id number] Age/Sex: 63 / M Adm Date: 5 Loc: Room: [address] [place] [address] Type: ADM INOo Attending Dr: Leidy Nuno DO Copies to: DO Lala Hannah MD, [facility] Leidy Nuno DO~ Cardiology HPI History of Present Illness Consult Date: 10/01/24 Reason for Consult: Hypotension HPI: Mr. Kaminski is a 63 year old male who is being seen at request of the hospitalist for hypotension. The patient was discharged 48 hours from [facility] after having admission for chest pain leading to diagnostic heart catheterization which revealed patent for coronary bypass farooq rgery grafts including RIVAS graft to the LAD, saphenous vein graft to diagonal, saphenous vein graft to obtuse marginal, saphenous vein graft to the RCA. His sycuan coronary arteries were occluded. Ejection fraction measured [...] that will be directed by his primary alternative medicine practitioner. 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 (7) Persistent atrial fibrillation: Assessment/Problem Details: Not very symptomatic but in the presence of severe LV systolic dysfunction temple of normal sinus rhythm is desirable Plan: [...] Ischemic cardiomyopathy Documented By: Lala Arce MD, [facility] 5 1127 Signed By: 10/01/24 1138 [facility]06-24-2025 Radiology Diagnostic study note [facility] [place] [address] [place] [address] CT Scan Report Signed Patient: Esme Kaminski MR#: [id number] : 1960 Acct:[id number] Age/Sex: 63 / M ADM Date: 5 Loc: ER Room: Type: [facility] ER Attending Dr: Copies to: Radha Medina [...] Paul M.D. 09/30/2024 4:34 PM Dictation Location: [place] [address] Transcribed By: [facility] 09/30/24 1634 Dictated By: Ap Paul MD 09/30/24 1630 Signed By: 09/30/24 1636 [facility] Work Phone: 1(103) [phone] Evaluation note* Diagnosis Onset Date Resolution Status [...] 1:54pmPersistent atrial fibrillationacute December 09, 2024 8:11am [facility] Work Phone: 1(659) 551-520806-23-2025 Evaluation note* Diagnosis Onset Date Resolution Status [...] Other spondylosis with radiculopathy, lumbar regionacuteSept2024 10:51am [facility] Work Phone: 1(304) 188-235906-23-2025 Evaluation note* Diagnosis Onset Date Resolution Status [...] December 26, 2024 9:33amChest painnoneactiveSeptember 2024 9:33am [facility] Work Phone: 1([phone]) [phone] Telephone encounter Note* Telephone Encounter - Debra Gee RN - 09/26/2024 3:36 PM EDT Pt returning call Read message below Voiced understanding No further questions [facility]06-20-2025 Miscellaneous Notes* Telephone Encounter - Debra Gee [...] osteoarthritis/PMR/gout in 6-12months Thankyou. documented in this encounterOhiohealth [facility] Center06-20-2025 Instructions* Patient Instructions* Heladio Pineda MD - [...] touching your toes, sit-ups, using row machine senior living pain recommendations per primary care provider/pain clinic Nonfasting labs as scheduled Thank you! documented in this encounterOhiohealth [facility] Center06-20-2025 Telephone encounter Note * Telephone Encounter - Melany Pearson MA - 09/26/2024 12:56 PM EDT LMTCB [facility]06-20-2025 NoteHNO ID: [id number] Author: HELADIO PINEDA MD Service: ? Author [...] visit. 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 Tried mobic this week mild response. Likes [...] consider trial of dmards/k (more content not included)...[facility]06-20-2025 History of Present illness Narrative* Heladio [...] visit. Either the patient or their legal unit support representative has been informed of the risks [...] hands, hips, knees, allover, worse when sitting senior living. Tried mobic this week mild response. 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 Mild narrowing of the [...] of multiple sites M35.3 PMR (polymyalgia rheumatica) ([facility]) R76.8 CHENCHO positive M79.641, M79.642 Bilateral hand pain Z79.899 Long-term use of high-risk medication M25.551, M25.552, G89.29 Chronic hip pain, bilateral M12.812 Rotator cuff arthropathy of left shoulder Z79.52 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 M79.89 Bilateral [...] 12, crp 0.6; Pain worse when sitting instructional facilitator. Tried mobic few weeks ago with mild [...] touching your toes, sit-ups, using row machine instructional facilitator pain recommendations per primary care provider/pain clinic [...] video & audio (virtual) or phone or xcrv-kz-cmhz patient care, completing clinical documentation, obtaining and/or [...] cc Vitaliy Brower DO documented in this encounterOhiohealth [facility]06-20-2025 Telephone encounter Note * Telephone Encounter - [...] on a speedy recovery! Warm regards, :) [facility]06-19-2025 Telephone encounter Note* Telephone Encounter - Yannick [...] he will walk in and do them [facility]06-07-2025 Telephone encounter Note* Telephone Encounter - Heladio Pineda MD - 09/13/2024 10:21 AM EDT Please call patient to schedule Nonfasting labs Follow up for osteoarthritis/PMR/gout in 6-12months Thankyou. [facility]06-07-2025 Instructions* Patient Instructions* Heladio Pineda MD - [...] touching your toes, sit-ups, using row machine senior living pain recommendations per primary care provider/pain clinic Nonfasting labs as scheduled Thank you! documented in this encounterOhiohealth [facility] Center06-07-2025 History of Present illness Narrative* Heladio Pineda [...] visit. Either the patient or their legal unit support representative has been informed of the risks [...] hands, hips, knees, allover, worse when sitting instructional facilitator. Tried mobic this week mild response. 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 Mild narrowing of the [...] hands, hips, knees, allover, worse when sitting senior living. Tried mobic this week mild response. Likes [...] touching your toes, sit-ups, using row machine senior living pain recommendations per primary care provider/pain clinic [...] via video& audio (virtual) or phone or sfzu-ks-uoat patient care, completing clinical documentation, obtaining and/or [...] cc Vitaliy Brower DO documented in this encounterOhiohealth [facility] Medical Center06-07-2025 NoteHNO ID: [id number] Author: HELADIO PINEDA MD Service: ? Author [...] visit. Either the patient or their legal unit support representative has been informed of the risks [...] hips, knees, all over, worse when sitting senior living. Tried mobic this week mild response. Likes [...] rheum care. No falls/f (more content not included)...[facility] 09-09-[address] [address] Cardioversion Procedure Note Signed Patient: Esme Kaminski MR#: [id number] : 1960 Acct:[id number] Age/Sex: 63 / M Adm Date: 5 Loc: Room: Type: [facility] Attending Dr: Antonio Steele MD Copies to: [...] MD 09/09/24 1228 Signed By: 09/09/24 1230 [facility]05-27-2025 Telephone encounter Note* Telephone Encounter - Ileana Strong - 09/02/2024 10:41 AM EDT Patient scheduled on 09/13/2024 [facility]05-27-2025 Miscellaneous Notes* Telephone Encounter - Ileana Strong - 09/02/2024 10:41 AM EDT Patient scheduled on 09/13/2024 * Telephone Encounter - Heladio Pineda MD - 08/31/2024 1:09 PM EDT Please call patent To schedule nonfasting labs Active in 07/2024. Ok to complete at [facility]. Please schedule earlier follow up visit for PMR May offer Sat. Clinic (virtual/phone only) 09/13/24 and 10/11/24 are open. Thank you. documented in this encounterOhiohealth [facility] Medical Center05-25-2025 Telephone encounter Note * Telephone Encounter - Heladio Pineda MD - 08/31/2024 1:09 PM EDT Please call patent To schedule nonfasting labs Active in 07/2024. Ok to complete at [facility]. Please schedule earlier follow up visit for PMR May offer Sat. Clinic (virtual/phone only) 09/13/24 and 10/11/24 are open. Thank you. [facility]05-16-2025 History of Present illness Narrative* Antonio Steele [...] of breath. His recentstress test showed inferolateral VT with mild area [...] exam, discussion and plan. documented in this [facility] Work Phone: 1(149) 456-532105-16-2025 Instructions* Patient Instructions* Zo Castro LPN - [...] through Care Everywhere. * Heart Healthy Diet (Georgian) documented in this [facility] Work Phone: 1(188) 949-498804-23-2025 Evaluation note* Diagnosis Onset Date Resolution Status [...] September 30, 2024 4:14pmPrimary hypertensionacuteJune 2024 4:14pm [facility] Work Phone: 1(331) 361-749204-23-2025 Evaluation note* Diagnosis Onset Date Resolution Status [...] 2024 1:53pmOSA (obstructive sleep apnea)acuteJuly 2024 1:53pm [facility] Work Phone: 1([phone]) 662-920504-23-2025 Evaluation note* Diagnosis Onset Date Resolution Status [...] September 30, 2024 4:14pmPersistent atrial fibrillationinactiveJun2024 4:14pmPrimary hypertensioninactiveCritical Access Hospital2024 4:14pmASHD (arteriosclerotic heart disease)acuteJuly 2024 1:53pmAtrial fibrillationacuteJuly 2024 1:53pmChronic HFrEF (heart failure with reduced ejection fraction)acuteJuly 2024 1:53pmGAD (generalized anxiety disorder)acuteJuly 2024 1:53pm HypercholesterolemiaacuteJuly 2024 1:53pmHypothyroidacuteJuly 2024 1:53pmOSA (obstructive sleep apnea)acuteJuly 2024 1:53pmPseudogoutacuteJuly 2024 1:53pmGreater trochanteric bursitis of right hipacuteJuly 2024 1:54pmHistory of total right hip arthroplastyacuteJuly 2024 1:54pm [facility] Work Phone: 1([phone]) 899-519903-31-2025 Telephone encounter Note* Telephone Encounter - Heladio [...] above. Please process accordingly. Heladio Pineda MD [facility]03-31-2025 Miscellaneous Notes* Telephone Encounter - Heladio Pineda [...] accordingly. Heladio Pineda MD documented in this encounterOhiohealth [facility] Medical Center03-25-2025 Evaluation note* Diagnosis Onset Date Resolution Status Admit Date ASHD (arteriosclerotic heart disease) [facility] 2024 1:11pmGAD (generalized anxiety disorder)[facility] 2024 1:11pmGastroesophageal reflux disease with esophagitis without hemorrhage [facility] 2024 1:11pmHypothyroidacuteSt. [facility] 20[facility] 1:11pmMacrocytosis without anemiaNovant Health [facility] 2024 1:11pm [facility] Work Phone: 1(924) 399-595303-25-2025 Evaluation note* Diagnosis Onset Date Resolution Status Admit Date ASHD (arteriosclerotic heart disease) [facility] 2024 1:11pmGAD (generalized anxiety disorder)[facility] 2024 1:11pmGastroesophageal reflux disease with esophagitis without hemorrhage acuteMarch 2024 1:11pmHypothyroidacuteMarch 2024 1:11pmMacrocytosis without anemiaacuteMarch 2024 1:11pmPurpura of skin due to vascular fragilityacuteApril 2024 9:44amAbdominal painnoneactiveApril 2024 9:44amDiverticulitis large intestinenoneactiveApril 2024 9:44am [facility] Work Phone: 1(123) [phone] Evaluation note* Diagnosis Onset Date Resolution Status [...] 2024 9:03amPrimary osteoarthritis, right handacuteApril 2024 9:03am [facility] Work Phone: [phone] 176-561403-25-2025 Evaluation note* Diagnosis Onset Date Resolution Status [...] replacement of left hip jointacuteApril 2024 11:36am [facility] Work Phone: [phone]) 540-654803-25-2025 Evaluation note* Diagnosis Onset Date Resolution Status Admit Date ASHD (arteriosclerotic heart disease) acuteMarch 2024 1:11pmGAD (generalized anxiety disorder)acuteWe[facility]ch 2024 1:11pmGastroesophageal reflux disease with esophagitis without hemorrhage acuteWeisman Children'[facility] Rehabilitation Hospitalch 2024 1:11pmHypothyroidacuteMarch 2024 1:11pmMacrocytosis without anemiaacuteJunch 2024 1:11pmPurpura of skin due to vascular fragilityacuteApril 2024 9:44amAbdominal painnoneactiveApril 2024 9:44amDiverticulitis large intestinenoneactiveApril 2024 9:44amContusion of left handacuteApril 2024 9:03amLeft hand painacuteApril 2024 9:03amPrimary osteoarthritis, right handacuteApril 2024 9:03amContusion of left thighacuteApril 2024 11:36amHistory of revision of total replacement of left hip jointacuteApril 2024 11:36amAtrial fibrillationacuteMay 2024 12:48pmChest painacuteMay 2024 12:48pmUnstable anginaacuteMay 2024 12:48pm [facility] Work Phone: 1(589) [phone] Evaluation note* Diagnosis Onset Date Resolution Status Admit Date ASHD (arteriosclerotic heart disease) [facility]St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 No Do you need an commodity specialist? No documented in this encounterOhiohealth [facility]03-24-2025 NoteHNO ID: [id number] Author: HELADIO PINEDA MD Service: ? Author [...] but happy with rheum (more content not included)...[facility]03-23-2025 Instructions* Patient Instructions* Heladio Pineda MD [...] touching your toes, sit-ups, using row machine instructional facilitator pain recommendations per primary care provider/pain clinic [...] Ab, Total Negative Negative documented in this encounterOhiohealth [facility] Center01-24-2025 Evaluation note* Diagnosis Onset Date Resolution Status Admit Date Acute bronchitis due to other specified organisms acuteJanuary 2024 2:00pmChest wall contusionacuteJan2024 2:00pm [facility] Work Phone: [phone] 352-501712-25-2024 Miscellaneous Notes* Telephone Encounter - Bert Newman LPN - 04/02/2024 12:37 AM EST Con 06/04/23 Bmp, mag 06/12/23 [facility] Tele[facility] encounter Note* Telephone Encounter - Bert Newman LPN - 04/02/2024 12:37 AM EST Con 06/04/23 Bmp, mag 06/12/23 [facility]12-09-2024 Evaluation note* Diagnosis Onset Date Resolution Status Admit Date Acute bronchitis due to other specified organisms acuteDecember 2023 3:02pmASHD (arteriosclerotic heart disease)acuteDecember 2023 3:02pmCoughacuteDecember 2023 3:02pmAcute bronchitis due to other specified organismsacuteApruary 2024 2:00pmChest wall contusionacute Jesusita 2024 2:00pm [facility] Work Phone: 1(871) 758-286311-07-2024 History of Present illness Narrative* Antonio Steele [...] exam, discussion and plan. [facility] Work Phone: 1(291) [phone] Instructions* Patient Instructions* Zo Castro LPN - [...] through Care Everywhere. * Heart Healthy Diet (Georgian) [facility]Way[facility] Work Phone: 1(692) 167-945911-05-2024 Evaluation note* Diagnosis Onset Date Resolution Status Admit Date Primary osteoarthritis, right hand acuteNovember 2023 1:35pmBiceps tendonitis on rightacuteNovember 2023 9:37amRotator cuff syndrome of right shoulderacuteNovember 2023 9:37am Traumatic complete tear of left rotator cuffacuteNovember 2023 9:37am [facility] Work Phone: 1(123) 149-660211-05-2024 Evaluation note* Diagnosis Onset Date Resolution Status Admit Date Primary osteoarthritis, right hand acuteNovember 2023 1:35pmBiceps tendonitis on rightacuteNovember 2023 9:37amRotator cuff syndrome of right shoulderacuteNovember 2023 9:37am Traumatic complete tear of left rotator cuffacuteNovember 2023 9:37amAcute bronchitis due to other specified organismsacuteDecember 2023 3:02pmASHD (arteriosclerotic heart disease)acuteDecember 2023 3:02pmCoughacuteDecember 2023 3:02pmAcute bronchitis due to other specified organismsacuteJanuary 2024 2:00pm [facility] Work Phone: 1([phone]) 236-671910-22-2024 Hospital course Narrative* Bruno Almaguer MD - [...] Center 02/14/2024 2:00 PM Antonio Steele MD [id number] [place] 04/28/2024 8:40 AM Antonio Steele MD [id number] [place] 05/20/2024 10:30 AM [address] [id number] Shabnam Bruno Almaguer MD documented in this [facility] Work Phone: 1([phone]) 966-755210-22-2024 Note* Post-Procedure Note - Bruno Almaguer MD - 01/29/2024 12:08 PM EDT Physician Transition of Care Summary Invasive Cardiovascular Lab Procedure Date: 01/29/2024 Attending: * Bird Kowalski - Primary Resident/Fellow/Other Creasing And Cutting Press Feeder: Surgeons and Role: * Bruno Almaguer MD - Fellow Indications: Pre-op Diagnosis * Atrial fibrillation, unspecified type (Multi) [I48.91] Post-procedure diagnosis: Post-op Diagnosis * Atrial fibrillation, unspecified type (Multi) [I48.91] Procedure(s): LAAO (Left Atrial Appendage Occlusion) 98399 - VA PERQ CLSR TCAT L ATR APNDGE W/ENDOCARDIAL IMPLNT VA PERQ CLSR TCAT L ATR APNDGE W/ENDOCARDIAL IMPLNT [24807] Description of the Procedure: S/p MARIO closure [...] Closure, 27mm Watchman Flx Pro Laac - [id number] - Implanted Inventory item: DEVICE, CLOSURE, 27MM WATCHMAN FLX PRO LAAC Model/Cat number: [id number] Sewer Head: [place] Lot number: [id number] Device identifier: [id number] As of 01/29/2024 Status: Implanted Anticoagulation/Antiplatelet Plan: [...] by: Bruno Almaguer MD, 01/29/2024 1:45 PM [facility] Work Phone: 1(655) 325-770310-22-2024 Miscellaneous Notes* Post-Procedure Note - Bruno Almaguer MD - 01/29/2024 12:08 PM EDT Physician Transition of Care Summary Invasive Cardiovascular Lab Procedure Date: 01/29/2024 Attending: * Bird Kowalski - Primary Resident/Fellow/Other Creasing [employer] Cutting Press Feeder: Surgeons and Role: * Bruno Almaguer MD - Fellow Indications: Pre-op Diagnosis * Atrial fibrillation, unspecified type (Multi) [I48.91] Post-procedure diagnosis: Post-op Diagnosis * Atrial fibrillation, unspecified type (Multi) [I48.91] Procedure(s): LAAO (Left Atrial Appendage Occlusion) 07948 - VA PERQ CLSR TCAT L ATR APNDGE W/ENDOCARDIAL IMPLNT VA PERQ CLSR TCAT L ATR APNDGE W/ENDOCARDIAL IMPLNT [44842] Description of the Procedure: S/p MARIO closure [...] Closure, 27mm Watchman Flx Pro Laac - [id number] - Implanted Inventory item: DEVICE, CLOSURE, 27MM WATCHMAN FLX PRO LAAC Model/Cat number: [id number] Sewer Head: [place] Lot number: [id number] Device identifier: [id number] As of 01/29/2024 Status: Implanted Anticoagulation/Antiplatelet Plan: [...] Plan ASA 3 Mild [facility] Work Phone: 1(170) 807-358410-22-2024 History of Present illness Narrative* Olivier Hopkins, RoseannD - 01/29/2024 10:30 AM EDT Pharmacy Medication History Review Esme Kaminski is a 63 y.o. male admitted for Atrial fibrillation (Multi). Pharmacy reviewed the patient's jlvpw-oq-bksgrxrbj medications and allergies for accuracy. Medications ADDED: None Medications CHANGED: Medrol Medications REMOVED: None The list below reflects the updated BOATBUILDER WOOD list. Prior to Admission Medications Prescriptions Last [...] Secure Chat preferred If no response call [phone] or [email or web address] Rec documented in this [facility] Work Phone: 1(998) 972-797510-22-2024 Note* Pre-Sedation Documentation - Bruno Almaguer MD - 01/29/2024 10:27 AM EDT Patient: Esme Kaminski NPO guidelines met: Yes Physical Exam Airway Mallampati: III Cardiovascular Dental Pulmonary Plan ASA 3 Mild [facility] Work Phone: 1(632) 228-293610-22-2024 History and physical note* Bruno Almaguer MD [...] care of this patient. Bruno Almaguer MD [facility] Work Phone: 1(635) 293-223210-22-2024 History and physical note* Bruno Almaguer MD [...] patient. Bruno Almaguer MD documented in this [facility] Work Phone: 1([phone]) 256-808710-22-2024 Hospital Discharge instructions* Discharge Instructions* Sammi Loredo APRN-SALES REPRESENTATIVE EDUCATION COURSES - 01/29/2024 9:41 AM EDT Watchman Discharge [...] you have any concerns, youmay contact the 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 Operator or if any of these symptoms become excessive, contact your alternative medicine practitioner tonny to the emergency room. No tub [...] you have any questions or concerns - [phone] documented in [facility]Way[facility] Work Phone: 1([phone]) 221-864709-23-2024 [facility] History of Present illness Narrative* Bird [...] atrial fibrillation. 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 Bird Kowalski MD Press Set Up Person, Interventional Cardiology Fellowship Program [facility] [employer] Office documented in [facility]Way[facility] Work Phone: [phone]) 490-220209-09-2024 Telephone encounter Note* Telephone Encounter - Korin Leyva - 2023 9:29 AM EDT Called patient LVM regards to completing labs as directed below [facility]09-09-2024 Miscellaneous Notes* Telephone Encounter - [...] Most recent Rheumatology visit: 07/05/2023 (with Heladio Pinead) Last Bone Density on file: 06/28/2023 Rheumatology Care Team: None on file Recent Office Visits - This Specialty 07/05/2023 PMR (polymyalgia rheumatica) ([facility]) Rheumatology Heladio Pineda MD 03/05/2023 PMR (polymyalgia rheumatica) ([facility]) Rheumatology Heladio Pineda MD 01/05/2023 PMR (polymyalgia rheumatica) ([facility]) Rheumatology Heladio Pineda MD Upcoming Rheumatology Appointments - Next 365 Days Visit Type Date Time Department [facility] 03/17/2024 9:00 AM [facility] CBC: None on file [...] and advise. Maryann Ramos documented in this encounterOhio[facility] Telephone encounter Note * Telephone [...] above. Please process accordingly. Heladio Pineda MD [facility]09-06-2024 Telephone encounter Note* Telephone Encounter - Melany Pearson MA - 12/14/2023 9:35 AM EDT Images from the original note were not included. Most recent Rheumatology visit: 07/05/2023 (with Heladio Pineda) Last Bone Density on file: 06/28/2023 Rheumatology Care Team: None on file Recent Office Visits - This Specialty 07/05/2023 PMR (polymyalgia rheumatica) ([facility]) Rheumatology Heladio Pineda MD 03/05/2023 PMR (polymyalgia rheumatica) ([facility]) Rheumatology Heladio Pineda MD 01/05/2023 PMR (polymyalgia rheumatica) ([facility]) Rheumatology Heladio Pineda MD Upcoming Rheumatology Appointments - Next 365 Days Visit Type Date Time Department [facility] 03/17/2024 9:00 AM [facility] CBC: None on file [...] 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 Maryann Ramos [facility]07-11-2024 History of Present illness Narrative* Antonio Steele [...] exam, discussion and plan. documented in this encounterWayne Hospital Work Phone: [phone] 523-189907-11-2024 Instructions* Patient Instructions* Pearl Bae LPN - [...] Provided instructions on exercise documented in this encounterWayne Hospital Work Phone: 1(164) 399-316706-03-2024 Telephone encounter Note* Telephone Encounter - Lana Hartman MA - 09/10/2023 9:26 AM EDT Pt aware. Patient asked regarding Medrol. He says he is to take until completed. I stated yes. He wants to know if he should continue his other medications. I let him know Dr. Pineda didn't stated anything about any changes to his medication. Lana Hartman MA [facility]06-03-2024 Miscellaneous Notes* Telephone Encounter - [...] normal esr 9, crp<0.3; documented in this encounterOhiohealth [facility]06-02-2024 Telephone encounter Note * Telephone [...] chronic Afib. 03/05/23 normal esr 9, crp<0.3; [facility]05-29-2024 Telephone encounter Note* Telephone Encounter - Melany Pearson MA - 09/05/2023 2:40 PM EDT Spoke to pt aware of med sent. [facility]05-29-2024 Miscellaneous Notes* Telephone Encounter - [...] - This Specialty 07/05/2023 PMR (polymyalgia rheumatica) ([facility]) Rheumatology Heladio Pineda MD 03/05/2023 PMR (polymyalgia rheumatica) ([facility]) Rheumatology Heladio Pineda MD 01/05/2023 PMR (polymyalgia rheumatica) ([facility]) Rheumatology Heladio Pineda MD Upcoming Rheumatology Appointments - Next 365 Days Visit Type Date Time Department [facility] 03/17/2024 9:00 AM [facility] CBC: Latest Ref Rng [...] diagnoses: Vitamin D deficiency documented in this encounterOhiohealth [facility]05-29-2024 Telephone encounter Note * Telephone [...] above. Please process accordingly. Heladio Pineda MD [facility]05-29-2024 Telephone encounter Note* Telephone Encounter - Melany Pearson MA - 09/05/2023 10:21 AM EDT Spoke to pt he states he has been having muscle pain lately and will like to take the medrol dose pack for his pain. [facility]05-29-2024 Telephone encounter Note* Telephone Encounter - Heladio Pineda MD - 09/05/2023 9:12 AM EDT Please call patient Inquire if patient still taking medrol Is he have any pain symptoms, PMR symptoms? Per last note patient was off medrol Thank you. [facility]05-29-2024 Telephone encounter Note* Telephone Encounter - Melany Pearson MA - 09/05/2023 7:58 AM EDT Images from the original note were not included. Most recent Rheumatology visit: 07/05/2023 (with Heladio Pineda) Rheumatology Care Team: None on file Recent Office Visits - This Specialty 07/05/2023 PMR (polymyalgia rheumatica) ([facility]) Rheumatology Heladio Pineda MD 03/05/2023 PMR (polymyalgia rheumatica) ([facility]) Rheumatology Heladio Pineda MD 01/05/2023 PMR (polymyalgia rheumatica) ([facility]) Rheumatology Heladio Pineda MD Upcoming Rheumatology Appointments - Next 365 Days Visit Type Date Time Department [facility] 03/17/2024 9:00 AM [facility] CBC: Latest Ref Rng [...] Pineda MD Assoc. diagnoses: Vitamin D deficiency [facility]05-24-2024 Progress note Author Sally Alex [facility] August 31, 2023 3:45pmNote Date/TimeMay 2023 10:54am[place] [address] Hospitalist Progress Note Signed with Addenda Patient: Esme Kaminski MR#: [id number] : 1960 Acct:[id number] Age/Sex: 62 / M Adm Date: 4 Loc: Room: [address] [place] [address] Type: ADM IN Attending Dr: Sally Alex [...] 4 Mg Tablet PO 08/31/24 08:59 Q48HR [facility] Metoprolol Succinate 50 mg 08/31/23 09:00 08/31/23 [...] signed by DO RADHA Zavala> 08/31/23 1054 [facility] Work Phone: 1(503) 721-861005-24-2024 History and physical note Author Elliott Talley [facility] August 30, 2023 11:34pmNote Date/TimeMay 2023 11:04pm[place] [address] Hospitalist H&P Signed Patient: Esme Kaminski MR#: [id number] : 1960 Acct:[id number] Age/Sex: 62 / M Adm Date: 4 Loc: Room: [address] [place] [address] Type: ADM IN Attending Dr: Elliott Talley [...] that which is noted above in HPI [facility] Medical History (Updated 08/30/23 @ 23:33 [...] % (Auto) 4.4 % (.) 08/30/23 18:20 [place] % (Auto) 2.3 % (.) 08/30/23 18:20 Eos % (Auto) 0.1 % (.) 08/30/23 18:20 Baso % (Auto) 0.8 % (.) 08/30/23 18:20 Nucleat RBC Rel Count 0.0 /100 WBC (0-0.5) 08/30/23 18:20 Neut # (Auto) 13.4 x10E3/uL (1.8-7.7) H 08/30/23 18:20 Lymph # (Auto) 0.6 x10E3/uL (1.00-4.8) L 08/30/23 18:20 [place] # (Auto) 0.3 x10E3/uL (0.0-0.8) 08/30/23 18:20 [...] pH 5.5 (5.0-9.0) 08/30/23 18:45 Ur Specific [place] 1.016 (1.001-1.030) 08/30/23 18:45 Urine Protein Negative [...] pink Documented By: Elliott Talley MD 4 [id number] Signed By: <Electronically signed by Elliott Talley MD> 08/30/23 233 [facility] Work Phone: [phone]) [phone] History of Present illness Narrative* Ky Navarro [...] m (5' 10.5 ) documented in this [facility] Work Phone: 1([phone]) 956-202804-25-2024 Procedure noteA[facility]04-19-2024 History of Present illness Narrative* Antonio [...] been seen in the past by the [place] cardiology group but elected to change because [...] Status post aorto-coronary artery bypass graft 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 documented in this encounterWayne Hospital Work Phone: 1(484) 503-206704-19-2024 Instructions* Patient Instructions* Zo Castro LPN - [...] Provided instructions on exercise. documented in this encounterWayne Hospital Work Phone: [phone]) [phone] Miscellaneous Notes* Telephone Encounter - Polly Magana [...] accordingly. Heladio Pineda MD documented in this encounterOhio[facility]03-25-2024 Miscellaneous Notes* Telephone Encounter - [...] normal esr 9, crp<0.3; documented in this encounterOhiohealth [facility] Center03-07-2024 Miscellaneous Notes* Telephone Encounter - Kamille Rosario RN - 06/14/2023 9:28 AM EST Pt calling in; states he is to have procedure with JBP today but is experiencing fevers, vomiting, diarrhea. EP scheduler maintenance notified to call pt to cancel and [...] is experiencing fevers, vomiting, diarrhea. EP scheduler maintenance notified to call pt to cancel and [...] Patient agreeable and wants RX sent to [employer] [facility]. Rx sent to sign. Has some [...] Patient agreeable and wants RX sent to [facility]. Rx sent to sign. Has some at home and will start tonight. tkm ----- Message from Chhaya Whatley MD sent at 06/12/2023 4:40 PM EST ----- Please have patient start taking magnesium oxide 400 mg twice a day. Thank you Dirk [facility]03-04-2024 Miscellaneous Notes* Telephone Encounter - Ambar TEMO Figueroa - 06/11/2023 3:23 PM EST Images from the original note were not included. [facility] Physicians Cardiology: Cardioversion or DFT Testing Procedure: Cardioversion Physician: Dr. Dirk Whatley Date/Time of Procedure: 06/13 @ 1 pm Arrival Time: 12 pm Hospital: [facility] - Address: [address] [place] [address] Registration Location: [place] at Entrance C, parking lot P3 PRE OP REQUIREMENTS Below MUST be completed prior to your procedure or it may result in delay or cancellation [] Pre op testing: NONE [x] Pre op labs: Draw pre op labs any time between and at any [facility] Lab, no paper orders are [...] 7am Other Instructions: [x] Must have a explosives truck driver as you will be unable to drive following the procedure IMPORTANT INFORMATION Notify the Surgery office of any illness, infection or COVID symptoms or a COVID positive resultimmediately at [phone] If you take a blood thinner, unless [...] schedule changes or emergencies at the hospital [facility] currently allows up to two visitors [...] you by the EP Surgery nurses. The [facility] INVERMARTfreedom instructions can be incorrect and provide the wrong information about your procedure. If you have any questions or concerns about preparing for your procedure, please call the EP Surgery office at [phone] For additional questions and to schedule any follow up appointments please call the main [facility] Cardiology office at [phone] documented in this encounterGreen Cross Hospital03-04-2024 Telephone encounter Note* Telephone Encounter - Ambar Figueroa LPN - 06/11/2023 3:23 PM EST Images from the original note were not included. [facility] Physicians Cardiology: Cardioversion or DFT Testing Procedure: Cardioversion Physician: Dr. 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 The [facility] [employer] instructions can be incorrect and provide the wrong information about your procedure. If you have any questions or concerns about preparing for your procedure, please call the EP Surgery office at [phone] For additional questions and to schedule any follow up appointments please call the main [facility] Cardiology office at [phone] [facility] Aquiris [id number] Miscellaneous Notes* Telephone Encounter - Ambar Figueroa [...] not hold any medication, pamela done at [place] by md. Diagnosis persistent atrial fibrillation. History: Patient with [...] AFib. Thank you Dirk documented in this encounterGreen Cross Hospital02-26-2024 Telephone encounter Note* Telephone Encounter - Ambar Figueroa LPN - 06/04/2023 3:05 PM EST ISAÍAS HEREDIA is requesting a CDVN for this pt, please review and advise thank you. [facility]02-26-2024 Telephone encounter Note* Telephone Encounter - [...] not hold any medication, pamela done at [place] by me. Diagnosis persistent atrial fibrillation. History: [...] in management of AFib. Thank you Dirk [employer] Work Phone: 1(767) 886-812502-26-2024 History of Present illness Narrative* Sarai Booth MD - 06/04/2023 2:15 PM EST Esme Lopezowan Date of visit: 06/04/2023 Date of : 1960 Age: 62 y.o. 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 Hypertension Nonrheumatic mitral (valve) insufficiency Hyperlipidemia Other transient cerebral ischemic attacks and related syndromes Obstructive sleep apnea Dizziness Severe obesity (BMI 35.0-39.9) with comorbidity ([facility]-HCC) Coronary artery disease involving sycuan coronary artery of sycuan heart without angina pectoris Atrial fibrillation Allergies [...] Complaint Patient presents with Follow-up 6M and [facility] 04/18/2023 Coronary Artery Disease Hypertension Atrial [...] graft with angina pectoris (CMS-HCC) Heart failure ([facility]-HCC) Hyperlipidemia Hypertension Meniere disease Myocardial infarction (CMS-HCC) Nonrheumatic mitral (valve) insufficiency Obstructive sleep apnea Other transient cerebral ischemic attacks and related syndromes No data recorded No data recorded No data recorded Past Surgical History: Procedure Laterality Date APPENDECTOMY BACK SURGERY Coronary angiogram + graft/sycuan N/A 02/03/2020 Performed by John Talavera MD at [facility] CORONARY ARTERY BYPASS GRAFT [...] completed IMPRESSIONS/PLAN 1. Coronary artery disease involving sycuan coronary artery of sycuan heart without angina pectoris - POCT EKG - Basic Metabolic Panel; Future - CBC auto differential; Future 2. Persistent atrial fibrillation ([facility]-HCC) - POCT EKG - Cardioversion external; Future [...] BROWER DO Referring Physician: Vitaliy Brower DO [facility] [place] [address] documented in this encounterGreen Cross Hospital02-26-2024 Instructions* Patient Instructions* Zhane Ceja RN - 06/04/2023 2:15 PM EST Pt needs scheduled for cardioversion at [facility] next week. He has been on eliquis without missing any doses. Thx slm documented in this encounterGreen Cross Hospital02-23-2024 Miscellaneous Notes* Telephone Encounter - Melinda Gomes CMA - 06/01/2023 3:32 PM EST Called patient to remind them to bring their most current copy of their medication list with them to their appt. Patient verbalizes understanding. documented in this encounterOur [facility] of Mer[facility] - AndersonCellectar [id number] Telephone encounter Note* Telephone Encounter - Melinda Gomes CMA - 06/01/2023 3:32 PM EST Called patient to remind them to bring their most current copy of their medication list with them to their appt. Patient verbalizes understanding. 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 We talked about being more aggressive and going to surgery to close this wound but the patient was recently diagnosed with atrial fibrillation. In my discussions with anesthesiology this would need to be worked up and evaluated by the alternative medicine practitioner before considering a surgery unless it was an emergency. At this point I do not feel it is actively infected so I do not feel it is a emergent surgery. He does see Garfield in [place] on 06/04/2023. Our plan at this time is to continue with the wound VAC with home health nursing who will come backon Sunday to put the wound VAC back on. I will then plan to see him in about 3 weeks which would yobany day or 2 after he has seen his alternative medicine practitioner. At that point in time we will make a decision on thewound. If it is continuing to heal up and closed with the assistance of the wound VAC that is fantastic but if it still needs help then we will be aggressive at that time as long as his alternative medicine practitioner allows. Discussed post-op dental prophylaxis. Shared decision made to continue prophylactic antibiotics indefinitely. [facility] Other 01-29-2024 Evaluation note* Encounter Date Diagnosis [...] sometime in November to further discuss surgery. [facility] Other 01-24-2024 Evaluation note* Encounter Date Diagnosis [...] are maintaining regular scheduled appts with their alternative medicine practitioner. He understands that he must have surgery postponed for 4 wks for the new onset AFib. and postpone for 4-7 wks for COVID infection. Apr,Hypomagnesemia (ICD-10 - E83.42)Replace Magnesium w/ supplements Decrease Alcohol use. Recheck prior to any restortation of sinus rhythm [facility] Other 01-10-2024 NoteXR CHEST 1 VW Procedure: Chest x-ray performed Number of views:AP portable erect History:Palpitations, A. fib Comparison:07/18/2014 Findings: The heart and lungs show no acute findings, and the mediastinum and yue are grossly negative . There is a median sternotomy Impression: No acute change. Finalized by Sandra Barba DO on 04/18/2023 1:14 [facility] 04-18-2023 Miscellaneous Notes* Telephone Encounter [...] left and told him to call his alternative medicine practitioner. Pt not dyspneic. Does have some dizzy symptoms. Pt not on any blood thinners. Instructed to go to ER for evaluation documented [facility]Arc[facility] Telephone encounter Note* Telephone Encounter - Florence [...] left and told him to call his alternative medicine practitioner. Pt not dyspneic. Does have some dizzy symptoms. Pt not on any blood thinners. Instructed to go to ER for evaluation [facility] KEYW [id number] Evaluation note* Encounter Date Diagnosis Assessment Notes [...] or dyspnea, instructed to go to ER [facility] Other 01-03-2024 Evaluation note* Encounter Date Diagnosis [...] will call us to get in sooner. 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 Continue taking wuwj-vfd-vcdvevz anti-inflammatories as needed for assistance with swelling and pain associated with the operative extremity. [facility] Other 12-07-2023 Evaluation note* Encounter Date Diagnosis [...] of this patient was performed by Melinda Vega [place], TRACK GREASER and patient will continue with the treatment plan per Dr Mendez, who initiated this treatment plan. Dr. Montesinos is present in the office today and providing supervision. [facility] Other 12-07-2023 Evaluation note* Encounter Date Diagnosis [...] answered to the best of my ability. [facility] Other 12-04-2023 Evaluation note* Encounter Date Diagnosis Assessment Notes Treatment Notes Treatment Clinical Notes Mar, Primary osteoarthritis of right hip (ICD-10 - M16.11) [facility] Other 11-29-2023 Miscellaneous Notes* Telephone Encounter - [...] normal esr 9, crp<0.3; documented in this encounterOhiohealth [facility] Center11-29-2023 Evaluation note* Encounter Date Diagnosis [...] follow-up appointments based on that incision check. 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 R76.8 CHENCHO [...] touching your toes, sit-ups, using row machine instructional facilitator pain recommendations per primary care provider/pain clinic [...] video & audio (virtual) or phone or [id number] patient care, completing clinical documentation, obtaining and/or [...] cc Vitaliy Brower DO documented in this encounterOhiohealth Grant Medical Center11-26-2023 Instructions* Patient Instructions* Heladio Pineda [...] touching your toes, sit-ups, using row machine senior living pain recommendations per primary care provider/pain clinic [...] Ab, Total Negative Negative documented in this encounterOhiohealth Grant Medical Center11-25-2023 Miscellaneous Notes* Telephone Encounter - [...] - This Specialty 01/05/2023 PMR (polymyalgia rheumatica) ([facility]) Rheumatology Heladio Pineda MD 11/17/2013 Wrist arthritis [facility] Tracy Conley 10/29/2013 Pseudogout Rheumatology Tracy Conley Upcoming Rheumatology Appointments - Next 365 Days Visit Type Date Time Department [facility] 03/05/2023 2:00 PM [facility] CBC: CBC Latest Ref [...] diagnoses: Vitamin B12 deficiency documented in this encounterOhiohealth Grant Medical Center11-22-2023 Evaluation note* Encounter Date Diagnosis [...] total left hip arthroplasty (ICD-10 - Z96.642) [facility] Other 10-27-2023 Evaluation note* Encounter Date Diagnosis [...] patient could proceed with surgery safely. The advertising traffic manager was vital for surgery timing and [...] plans. Prolonged services time spent: 34 minutes [facility] Other 10-25-2023 Evaluation note* Encounter Date Diagnosis Assessment Notes Treatment Notes Treatment Clinical Notes Jan, Primary osteoarthritis of right hip (ICD-10 - M16.11) Jan,Other1. Right PETER Home Medications - DVT prophylaxis: Aspirin - NSAID: Home prednisone - Disposition: Same-day discharge Joints Meeting Checklist - Pharmacy: [facility] to bed - Approach/Technique: anterior, Emden bed - Implants: Avenir Complete/G7; - Anesthesia: general vs spinal - Blocks: Fascia iliaca - Preop Antibiotics: Ancef and Vanco - TXA: yes-systemic - Positioning/OR Bed: supine on Emden bed - Intraop X-ray: yes - Otoole: [...] above surgery. OARRS report generated and reviewed. [facility] Other 10-18-2023 Evaluation note* Encounter Date Diagnosis [...] w/ plan to start MTX after surgery [facility] Other 10-05-2023 Miscellaneous Notes* Telephone Encounter - Melany Pearson MA - 01/11/2023 8:43 AM EDT Spoke to pt aware of results and recommendations. * Telephone Encounter - Heladio Pineda MD - 01/10/2023 5:14 PM EDT Please Call patient if MyChart note not read to review results/released to My Chart if tests completed at [facility]: Mildly Low vitamin D maybe associated with fatigue/joint/muscle pain. Start vitamin D 4000 International Units daily with food. Mildly Low vitamin b12- maybe associated with fatigue, may start over the counter vitamin [id number] daily by mouth or notify office if [...] hepatitis panel, quantiferon tb; documented in this encounterOhiohealth Grant Medical Center09-29-2023 Instructions* Patient Instructions* Heladio Pineda [...] touching your toes, sit-ups, using row machine senior living pain recommendations per primary care provider/pain clinic [...] your usual activities immediately. documented in this encounterOhiohealth Grant Medical Center09-29-2023 History of Present illness Narrative* Heladio Pineda MD - 01/05/2023 11:31 AM EDT NEW CONSULT:RHEUMATOLOGY SERVICE SERVICE DATE: 01/05/2023 SERVICE TIME: 11:31 AM REASON FOR CONSULT: joint pain 2nd opinion REQUESTING PHYSICIAN: Dr.Benjamin Inocente DO PRIMARY CARE PHYSICIAN: Vitaliy Brower DO Patient's Name: Esme Kaminski [address] [place] [id number] Accompanied by: self This consult was requested for my medical opinion regarding the rheumatologic evaluation of the patient's joint pain problems, and my final recommendations will be communicated to the requesting health care provider by way of the shared medical record for internal providers or letter via the [facility] Postal Service for external providers. 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 Kaminski's ASA to his alternative medicine practitioner, but guidelines favor continuing without interruption, if possible in patients with a history of PCI/stent placement. Dec,Elevated cholesterol (ICD-10 - E78.00)Stable, continue medication without interruption. Dec,rimary hypertension (ICD-10 - I10)Stable, continue medication without interruption. Dec,astroesophageal reflux disease with esophagitis without hemorrhage (ICD-10 - K21.00)Stable, continue treatment without interruption Dec,utoimmune thyroiditis (ICD-10 - E06.3)Clinically euthyroid, continue treatment without interruption [facility] Other 09-19-2023 Evaluation note* Encounter Date Diagnosis [...] S40.012A) Dec,Multiple joint pain (ICD-10 - M25.50) [facility] Other 08-17-2023 Evaluation note* Encounter Date Diagnosis Assessment Notes Treatment Notes Treatment Clinical Notes Nov, Pseudogout (ICD-10 - M11.20) [facility] Other 08-16-2023 Evaluation note* Encounter Date Diagnosis Assessment Notes Treatment Notes Treatment Clinical Notes Nov, Primary osteoarthritis of right hip (ICD-10 - M16.11) [facility] Other 08-15-2023 Evaluation note* Encounter Date Diagnosis [...] refer to Heladio Pineda for rheumatology consult [facility] Other 08-07-2023 Evaluation note* Encounter Date Diagnosis [...] antigen) (ICD-10 - Z12.5)Yearly MELBA and PSA [facility] Other 07-19-2023 Evaluation note* Encounter Date Diagnosis Assessment Notes Treatment Notes Treatment Clinical Notes Oct, Superficial ulcer of lower extre mity (ICD-10 - L97.909) Cleanse w/ soap and water. Elevate as much as possible. No improvement, refer to wound clinic Oct,ellulitis of left lower extremity (ICD-10 - L03.116)Keep clean, elevate and use Mupirocin bid. Begin antibiotics. [facility] Other 06-27-2023 Evaluation note* Encounter Date Diagnosis [...] palpitations or lightheadedness He completed evaluation w/ Sales Stock Associate w/o changes Instructed to avoid use of Nitroglycerine w/ Sildenafil. Instructed to avoid use if develop CP, palpitations or lightheadedness [facility] Other 06-21-2023 Evaluation note* Encounter Date Diagnosis Assessment Notes Treatment Notes Treatment Clinical Notes Sep, FER (obstructive sleep apnea) (ICD-10 - G 47.33) AHI 25, Psat 80% [facility] Other 06-21-2023 Evaluation note* Encounter Date Diagnosis Assessment Notes Treatment Notes Treatment Clinical Notes Sep, FER (obstructive sleep apnea) (ICD-10 - G 47.33) AHI 35 [facility] Other 05-03-2023 Evaluation note* Encounter Date Diagnosis [...] recurrent major depressive disorder (ICD-10 - F33.0) [facility] Other 05-01-2023 Evaluation note* Encounter Date Diagnosis [...] August,OtherAbove note written by Kevyn Corona MA, Track Laborer. Edited and approved by Dr. Jonathan Samano MD. [facility] Other 04-25-2023 Evaluation note* Encounter Date Diagnosis Assessment Notes Treatment Notes Treatment Clinical Notes Jul, Myalgia (ICD-10 - M79.10) [facility] Other 04-24-2023 Evaluation note* Encounter Date Diagnosis Assessment Notes Treatment Notes Treatment Clinical Notes Jul, Right shoulder pain (ICD-10 - M2 5.511) [facility] Other 04-21-2023 Evaluation note* Encounter Date Diagnosis [...] of yearly testing Sent order to complete [facility] Other 03-28-2023 Evaluation note* Encounter Date Diagnosis [...] left shoulder, initial encounter (ICD-10 - S40.012A) [facility] Other 02-27-2023 Evaluation note* Encounter Date Diagnosis [...] May,OtherAbove note written by Jeff Nieto LPN, Track Laborer. Edited and approved by Dr. Jonathan Samano MD. [facility] Other 02-27-2023 Evaluation note* Encounter Date Diagnosis [...] the injection well with no adverse reaction. [facility] Other 02-20-2023 Evaluation note* Encounter Date Diagnosis [...] instructedto continue exercise and AHA diet plan. [facility] Other 02-14-2023 Evaluation note* Encounter Date Diagnosis Assessment Notes Treatment Notes Treatment Clinical Notes May, Tongue ulceration (ICD-10 - K14. 0) Magic Mouth Wash qid. Refer to ENT May,Hoarseness of voice (ICD-10 - R49.0)Refer to ENT May,Odynophagia (ICD-10 - R13.10)Refer to ENT [facility] Other 01-04-2023 Evaluation note* Encounter Date Diagnosis [...] Apr,OtherAbove note written by Jeff Nieto LPN, Track Laborer. Edited and approved by Dr. Jonathan Samano MD. [facility] Other 11-30-2022 Evaluation note* Encounter Date Diagnosis [...] Feb,therAbove note written by Jeff Nieto LPN, Track Laborer. Edited and approved by Dr. Jonathan Samano MD. [facility] Other 11-09-2022 Evaluation note* Encounter Date Diagnosis [...] and tingle for hours after this injection. [facility] Other 11-07-2022 Evaluation note* Encounter Date Diagnosis [...] Feb,therAbove note written by Jeff Nieto LPN, Track Laborer. Edited and approved by Dr. Jonathan Samano MD. 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 Again discussed getting [...] to call with any questions or concerns. [facility] Other 06-06-2022 Evaluation note* Encounter Date Diagnosis Assessment Notes Treatment Notes Treatment Clinical Notes Sep, Right hand pain (ICD-10 - M79.64 1) Sep,rthritis of right hand (ICD-10 - M19.041)Right long finger MCP joint injected with cortisone under sterile technique, patient tolerated well. 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 Continue taking xxjx-adb-wfwnkuc anti-inflammatories as needed for assistance with swelling and pain associated with the operative extremity. Follow-up in 6 weeks for repeat examination and repeat x-rays. [facility] Other 04-13-2022 Evaluation note* Encounter Date Diagnosis Assessment Notes Treatment Notes Treatment Clinical Notes Jul, Primary osteoarthritis of right hip (ICD-10 - M16.11) 13 Jul,rimary osteoarthritis of left hip (ICD-10 - M16.12) 13 Jul, 2[facility] Doing well. Steri-Strips applied. Discussed [...] off narcotic pain medication. They can take pkrd-vwn-uhrjukbduvt-inflammatories as needed for assistance with swelling and [...] shoe for his standing weightbearing pelvis x-ray. [facility] Other 03-18-2022 Evaluation note* Encounter Date Diagnosis [...] patient could proceed with surgery safely. The advertising traffic manager was vital for surgery timing and [...] echo and a heart cath by his alternative medicine practitioner. Hewas then cleared from a cardiology standpoint. Any recommendations made by these care providers were taken into consideration for the patient's perioperative and postoperative treatment plans. Prolonged services time spent: 33 minutes [facility] Other 03-11-2022 Evaluation note* Encounter Date Diagnosis [...] postoperative period Joints Meeting Checklist - Pharmacy: [facility] bed - Approach/Technique: anterior, Emden bed - Implants: Avenir Complete/G7; - Anesthesia: general - Blocks: Fascia iliaca - Preop Antibiotics: Ancef - TXA: yes-systemic - Positioning/OR Bed: supine on Emden bed - Intraop X-ray: yes - Otoole: [...] elected to proceed with the above surgery. [facility] Other 11-16-2021 Evaluation note* Encounter Date Diagnosis [...] Feb,OtherAbove note written by Erica Valenzuela CMA, Track Laborer. Edited and approved by Dr. Jonathan Samano MD. [employer] Other 09-29-2021 Evaluation note* Encounter Date Diagnosis [...] Dec,OtherAbove note written by Erica Valenzuela CMA, Track Laborer. Edited and approved by Dr. Jonathan Samano MD. [facility] [employer] Other Evaluation note* Diagnosis Swelling of knee joint- Primary Effusion of lower leg joint documented in this encounter [facility] noteNo InformationNortSt. 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 Encounter for long-term (current) use of steroids CHENCHO positive Other and unspecified nonspecific immunological findings Bilateral hand swelling documented in this encounter [facility] CenterEvalubay[facility] note* Diagnosis PMR (polymyalgia rheumatica) (HCC)- Primary Polymyalgia rheumatica Elevated sed rate Elevated sedimentation rate Elevated C-reactive protein (CRP) Vitamin D deficiency Unspecified vitamin D deficiency Vitamin B12 deficiency Other B-complex deficiencies documented in this encounter [facility] note* Diagnosis PMR (polymyalgia rheumatica) (HCC)- Primary [...] 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, pelvic region and thigh 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 Encounter for long-term (current) use of steroids CHENCHO positive Other and unspecified nonspecific immunological findings Chronic pain of both knees Bilateral hand pain Pain in limb documented in this encounter [facility]* Diagnosis PMR (polymyalgia rheumatica) (HCC)- Primary Polymyalgia rheumatica Elevated sed rate Elevated sedimentation rate Elevated C-reactive protein (CRP) documented in this encounter [facility] CenterEvalubayhealth [facility] note* Diagnosis Steroid-induced osteoporosis Other osteoporosis documented in this encounter [facility] CenterEvalubay[facility] note* Diagnosis Onset Date Resolution Status Aftercare following hip joint replacemen t surgery acuteHistory of total replacement of right hipacuteAftercare following hip joint replacement surgeryacuteHistory of total replacement of right hipacuteASHD (arteriosclerotic heart disease)acuteGAD (generalized anxiety disorder)acute HyperlipidemiaacuteHypertensionacuteHypothyroidsuburban medical centeracute [facility] Work Phone: Evaluation note* Diagnosis PMR (polymyalgia rheumatica) (HCC)- Primary Polymyalgia rheumatica Elevated sed rate Elevated sedimentation rate Elevated C-reactive protein (CRP) Vitamin D deficiency Unspecified vitamin D deficiency documented in this encounter [facility] CenterEvalubayhealth [facility] note* Diagnosis Persistent atrial fibrillation (Multi)- Primary Atrial fibrillation Multi-vessel coronary artery stenosis Cardiomyopathy, ischemic Other specified forms of chronic ischemic heart disease Mixed hyperlipidemia 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 (Multi) Atrial fibrillation Status post aorto-coronary artery bypass graft 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 of anticoagulant therapy BMI 35.0-35.9,adult documented in this encounter [facility] Work Phone: Evaluation note* Diagnosis Onset Date Resolution Status Aftercare following hip joint replacemen t surgery acuteHistory of total replacement of right hipacuteAftercare following hip joint replacement surgeryacuteHistory of total replacement of right hipacuteASHD (arteriosclerotic heart disease)acuteAtrial fibrillationacuteGAD (generalized anxiety disorder)acuteHypertensionacute [facility] Work Phone: Evaluation note* Diagnosis 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 (Multi) Atrial fibrillation documented in this encounter [facility] Work Phone: Evaluation note* Diagnosis Onset Date Resolution Status Aftercare following hip joint replacemen t surgery acuteHistory of total replacement of right hipacuteAftercare following hip joint replacement surgeryacuteHistory of total replacement of right hipacuteASHD (arteriosclerotic heart disease)acuteAtrial fibrillationacuteGAD (generalized anxiety disorder)acuteHypertensionacuteDiverticulitisacuteElevated lactic acid levelacuteMigraineacuteSIRS (systemic inflammatory response syndrome)acute [facility] Work Phone: Evaluation note* Diagnosis Onset Date Resolution Status Aftercare following hip joint replacemen t surgery acuteHistory of total replacement of right hipacuteAftercare following hip joint replacement surgeryacuteHistory of total replacement of right hipacuteASHD (arteriosclerotic heart disease)acuteAtrial fibrillationacuteGAD (generalized anxiety disorder)acuteHypertensionacuteAcute diverticulitisacuteDiverticulitis acuteElevated lactic acid levelacuteMigraineacuteSepsisacuteSIRS (systemic inflammatory response syndrome)acute [facility] Work Phone: Evaluation note* Diagnosis PMR (polymyalgia rheumatica) ([facility])- Primary Polymyalgia rheumatica Elevated sed rate Elevated sedimentation rate Elevated C-reactive protein (CRP) documented in this encounter [facility]* Diagnosis Onset Date Resolution Status Aftercare following hip joint replacemen t surgery acuteHistory of total replacement of right hipacuteASHD (arteriosclerotic heart disease)acuteGAD (generalized anxiety disorder)acuteAcute diverticulitisacute Acute diverticulitisacuteASHD (arteriosclerotic heart disease)acuteInflammatory polyarthritisacutePersistent atrial fibrillationacutePrimary hypertensionacute [facility] Work Phone: Evaluation note* Diagnosis 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 (tophi) Hyperuricemia Other abnormal blood chemistry documented in this encounter [facility]* Diagnosis Onset Date Resolution Status Acute diverticulitis acuteElevated lactic acid levelresolvedAcute diverticulitisacuteASHD (arteriosclerotic heart disease)acuteInflammatory polyarthritisacutePersistent atrial fibrillationacutePrimary hypertensionacuteBiceps tendonitis on rightacute Rotator cuff syndrome of right shoulderacuteTraumatic complete tear of left rotator cuffacute [facility] Work Phone: Evaluation note* Diagnosis Onset Date Resolution Status Elevated lactic acid level resolvedASHD (arteriosclerotic heart disease)acuteInflammatory polyarthritis acutePrimary hypertensionacuteBiceps tendonitis on rightacuteRotator cuff syndrome of right shoulderacuteTraumatic complete tear of left rotator cuffacute ASHD (arteriosclerotic heart disease)acuteAtrial fibrillationacuteGAD (generalized anxiety disorder)acuteGastroesophageal reflux disease with esophagitis without hemorrhageacuteHypercholesterolemiaacuteOSA (obstructive sleep apnea)acutePrimary hypertensionacuteScreening PSA (prostate specific antigen)noneactiveH/O diverticulitis of [facility] examination [facility] Work Phone: Evaluation note* Diagnosis Elevated sed rate Elevated sedimentation rate Elevated C-reactive protein (CRP) PMR (polymyalgia rheumatica) ([facility]) Polymyalgia rheumatica documented in this encounter [facility]* Diagnosis Onset Date Resolution [...] appendage closure device documented in this encounter [facility] Work Phone: Evaluation note* Diagnosis Onset Date Resolution Status Acute right flank pain acuteASHD (arteriosclerotic heart disease)acuteAtrial fibrillationacuteGAD (generalized anxiety disorder)acuteGastroesophageal reflux disease with esophagitis without hemorrhageacuteHypercholesterolemiaacuteHypothyroidacuteOSA (obstructive sleep apnea)acutePrimary hypertensionacuteScreening PSA (prostate specific antigen)noneactiveH/O diverticulitis of colonnoneactiveWellness examinationnoneactivePrimary osteoarthritis, right handacute [facility] Work Phone: Evaluation note* Diagnosis Persistent atrial fibrillation (Multi)- Primary Atrial fibrillation Status post aorto-coronary artery bypass graft Presence of Watchman left atrial appendage closure device Multi-vessel coronary artery stenosis Mixed hyperlipidemia Cardiomyopathy, ischemic Other specified forms of chronic ischemic heart disease Dilated aortic root (CMS-HCC) Thoracic aneurysm without mention of rupture Never smoked cigarettes BMI 35.0-35.9,adult documented in this encounter [facility] Work Phone: Evaluation note* Diagnosis Persistent atrial fibrillation (Multi)- Primary Atrial fibrillation Status post aorto-coronary artery bypass graft Mixed hyperlipidemia Cardiomyopathy, ischemic Other specified forms of chronic ischemic heart disease Multi-vessel coronary artery stenosis BMI 35.0-35.9,adult Never smoked cigarettes documented in this encounter [facility] Work Phone: Evaluation note* Diagnosis 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 (Multi)- Primary Atrial fibrillation Persistent atrial fibrillation (Multi) Atrial fibrillation documented in this encounter [facility] Work Phone: Evaluation note* Diagnosis Persistent atrial fibrillation (CMS-HCC)- Primary Atrial fibrillation Coronary artery disease involving sycuan coronary artery of sycuan heart without angina pectoris [facility] Diagnosis Hypomagnesemia- Primary Disorders of magnesium metabolism documented [facility]* Diagnosis Atrial fibrillation, unspecified type (Multi) documented in this encounter [facility] Work Phone: Evaluation note* Diagnosis PMR [...] multiple joints Other disorder of calcium metabolism 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 Encounter for [...] of high-risk medication [facility] 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 (tophi) Vitamin D deficiency Unspecified vitamin D deficiency Elevated LFTs Other abnormal blood chemistry Anemia of chronic disease Anemia of other chronic disease Hyperuricemia Other abnormal blood chemistry [facility] Diagnosis Persistent atrial fibrillation (Multi)- Primary Atrial fibrillation Multi-vessel coronary artery stenosis Status post aorto-coronary artery bypass graft Mixed hyperlipidemia Dilated aortic root Thoracic aneurysm without mention of rupture Cardiomyopathy, ischemic Other specified forms of chronic ischemic heart disease Presence of Watchman left atrial appendage closure device BMI 32.0-32.9,adult Never smoked cigarettes documented in this encounter [facility] Work Phone: Evaluation note* Diagnosis Idiopathic [...] hip pain, bilateral [facility] Diagnosis Pseudogout involving multiple [...] bilateral Rotator cuff arthropathy of left shoulder 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 Encounter for long-term (current) use of steroids Bilateral hand swelling Chronic pain of both knees Leg weakness, bilateral Other musculoskeletal symptoms referable to limbs Chronic bilateral low back pain without sciatica Bilateral knee swelling Effusion of lower leg joint [facility] Diagnosis Persistent atrial fibrillation (Multi)- Primary Atrial fibrillation Multi-vessel coronary artery stenosis Status post aorto-coronary artery bypass graft Presence of Watchman left atrial appendage closure device Mixed hyperlipidemia Dilated aortic root Thoracic aneurysm without mention of rupture Cardiomyopathy, ischemic Other specified forms of chronic ischemic heart disease Never smoked cigarettes BMI 32.0-32.9,adult documented in this encounter [facility] Work Phone: Evaluation note* Diagnosis Status post aorto-coronary artery bypass graft- Primary Multi-vessel coronary artery stenosis Presence of Watchman left atrial appendage closure device Persistent atrial fibrillation (Multi) Atrial fibrillation Mixed hyperlipidemia Dilated aortic root Thoracic aneurysm without mention of rupture Cardiomyopathy, ischemic Other specified forms of chronic ischemic heart disease Never smoked cigarettes Obesity (BMI 30-39.9) documented in this encounter [facility] Work Phone: Evaluation note* Diagnosis Right leg weakness- Primary Muscle weakness (generalized) documented in this encounter [facility] Work Phone: History and physical note Author Elliott Talley [facility] August 30, 2023 11:34pmNote Date/TimeMay 2023 11:[address] [place] [address] Hospitalist H&P Signed Patient: Esme Kaminski MR#: [id number] : 1960 Acct:[id number] Age/Sex: 62 / M Adm Date: 4 Loc: Room: [address] [place] [address] Type: ADM IN Attending Dr: Elliott Talley [...] that which is noted above in HPI [facility] Medical History (Updated 08/30/23 @ 23:33 [...] % (Auto) 4.4 % (.) 08/30/23 18:20 [place] % (Auto) 2.3 % (.) 08/30/23 18:20 Eos % (Auto) 0.1 % (.) 08/30/23 18:20 Baso % (Auto) 0.8 % (.) 08/30/23 18:20 Nucleat RBC Rel Count 0.0 /100 WBC (0-0.5) 08/30/23 18:20 Neut # (Auto) 13.4 x10E3/uL (1.8-7.7) H 08/30/23 18:20 Lymph # (Auto) 0.6 x10E3/uL (1.00-4.8) L 08/30/23 18:20 [place] # (Auto) 0.3 x10E3/uL (0.0-0.8) 08/30/23 18:20 [...] pH 5.5 (5.0-9.0) 08/30/23 18:45 Ur Specific [place] 1.016 (1.001-1.030) 08/30/23 18:45 Urine Protein Negative [...] signed by Elliott Talley MD> 08/30/23 2334 [facility] Work Phone: History and physical note Author Mehrdad Mcmanus [facility] December 31, 2023 12:47pmNote Date/TimeSept2023 12:47pm[place] [address] Gastroenterology H&P Signed Patient: Esme Kaminski MR#: [id number] : 1960 Acct:[id number] Age/Sex: 63 / M Adm Date: 4 Loc: Room: Type: [facility] Attending Dr: Mehrdad Mcmanus MD Copies to: [...] <Electronically signed by Mehrdad Mcmanus MD> 12/31/237 [facility] Work Phone: History and physical note Author Ada Valentin [facility] Hospital[facility] Date/TimeJune 2024 1:17pm[place] [address] Hospitalist H&P Signed Patient: Esme Kaminski MR#: [id number] : 1960 Acct:[id number] Age/Sex: 63 / M Adm Date: 5 Loc: Room: [address] [place] [address] Type: ADM INOo Attending Dr: Leidy Nuno [...] systems obtained, negative unless noted in the [facility] Source: Old Records Reviewed Medical History [...] % (Auto) 11.5 % (.) 09/30/24 14:21 [place] % (Auto) 3.9 % (.) 09/30/24 14:21 Eos % (Auto) 0.2 % (.) 09/30/24 14:21 Baso % (Auto) 0.6 % (.) 09/30/24 14:21 Nucleat RBC Rel Count 0.1 /100 WBC (0-0.5) 09/30/24 14:21 Neut # (Auto) 14.2 x10E3/uL (1.8-7.7) H 09/30/24 14:21 Lymph # (Auto) 1.9 x10E3/uL (1.00-4.8) 09/30/24 14:21 [place] # (Auto) 0.7 x10E3/uL (0.0-0.8) 09/30/24 14:21 [...] 2 Documented By: Ada Valentin APRN 09/30/24 8557 Signed By: <Electronically signed by STEPHEN Valentin> 09/30/24 6198 <Electronically signed by Leidy Nuno DO> 10/01/24 1314 [facility] Work Phone: History general Narrative - Reported* Type Description Date Medical History CAD with 10 stints Medical HistoryL/S spine artificial discs times twoMedical HistoryTKR bilateral Medical HistoryhypothyroidMedical HistoryhypertensionMedical HistoryRASurgical Historylumbar TDRremoteSurgical HistoryTKR bilateralremoteSurgical Historystint placement for CAD times 10remoteSurgical Historyquad bipass4/10/15Surgical Historydouble knee replacement Dr Harmony [id number] Historysee above [employer] Other History general Narrative - Reported* Type Description Date Medical History CAD with 10 stints Medical HistoryL/S spine artificial discs times twoMedical HistoryTKR bilateral Medical HistoryhypothyroidMedical HistoryhypertensionSurgical Historylumbar TDR remoteSurgical HistoryTKR bilateralremoteSurgical Historystint placement for CAD times 10remoteSurgical Historyquad bipass4/10/15Surgical Historydouble knee [id number] Historysee [facility] [employer] Other History general Narrative - Reported* Type Description Date Medical History CAD with 10 stints Medical HistoryL/S spine artificial discs times twoMedical HistoryTKR bilateral Medical HistoryhypothyroidMedical HistoryhypertensionSurgical Historylumbar TDR remoteSurgical HistoryTKR bilateralremoteSurgical Historystint placement for CAD times 10remoteSurgical Historyquad bipass4/10/15Surgical Historydouble knee replacement Dr Harmony [id number] Historysee [employer] Other History general Narrative - ReportedNoresearch [facility] [employer] Other [employer] general Narrative - Reported* Type Description Date Medical History CAD with 10 stints Medical HistoryL/S spine artificial discs times twoMedical HistoryTKR bilateral Medical HistoryhypothyroidMedical HistoryhypertensionMedical HistoryRASurgical Historylumbar TDRremoteSurgical HistoryTKR bilateralremoteSurgical Historystint placement for CAD times 10remoteSurgical Historyquad bipass4/10/15Surgical Historydouble knee replacement Dr Harmony SamanoTzqwhv7221Iohrsuyd HistoryLTHA07/04/21 Hospitalization Historysee above [employer] Other History general Narrative - Reported* Type Description Date Medical History CAD with 10 stints Medical HistoryL/S spine artificial discs times twoMedical HistoryTKR bilateral Medical HistoryhypothyroidMedical HistoryhypertensionMedical HistoryRAMedical HistoryOSASurgical Historylumbar TDRremoteSurgical HistoryTKR bilateralremote Surgical Historystint placement for CAD times 10remoteSurgical Historyquad bipass4/10/15Surgical Historydouble knee replacement Dr Harmony SamanoOmjeck5987Fitubyaz HistoryLTHA07/04/21Hospitalization Historysee above [employer] Other History general Narrative - Reported* Type Description Date Medical History ASHD Medical HistoryL/S spine artificial discs times twoMedical HistoryTKR bilateral Medical HistoryhypothyroidMedical HistoryhypertensionMedical HistoryOAMedical HistoryOSASurgical Historylumbar TDRremoteSurgical HistoryTKR bilateralremote Surgical Historystint placement for CAD times 10remoteSurgical Historyquad bipass4/10/15Surgical Historydouble knee replacement Dr Harmony SamanoXhpvxt7436Ojojugac HistoryLTHA07/04/21Hospitalization Historysee above [employer] Other [employer] general Narrative - Reported* Type Description Date Medical History ASHD Medical HistoryL/S spine artificial discs times twoMedical HistoryTKR bilateral Medical HistoryhypothyroidMedical HistoryhypertensionMedical HistoryOAMedical HistoryOSASurgical Historylumbar TDRremoteSurgical HistoryTKR bilateralremote Surgical Historystint placement for CAD times 10remoteSurgical Historyquad bipass4/10/15Surgical Historydouble knee replacement Dr Harmony SamanoPvqgbs8994Snjiytfb HistoryLeft THA07/04/21Surgical HistoryRight THA02/2023Hospitalization Historysee above [employer] Other History general Narrative - Reported* Type Description Date Medical History ASHD Medical HistoryL/S spine artificial discs times twoMedical HistoryTKR bilateral Medical HistoryhypothyroidMedical HistoryhypertensionMedical HistoryOAMedical HistoryOSASurgical Historylumbar TDRremoteSurgical HistoryTKR bilateralremote Surgical HistoryCABG x 44//15Surgical HistoryLeft THA3//Surgical History Right THA02/2023Surgical HistoryLHC2/urgical HistoryLHC w/ PTCA/bkela2702 Surgical ZplhynkBNI0001Mxavmdjk HeluvegPVX9034Ojxyvabt XyaazxmNYX3101Ktlsustw HistoryLHC w/ PTCA/tlvbo9366Wnghxpvbbkmbfid Historysee above [employer] Other Hospital Discharge instructions Additional Instructions Joint Replacement Discharge Instructions Your safety during your recovery process is important to us. Please seek immediate emergency care if you have sudden chest pain or shortness of breath. Additionally, please call our office at [phone] should any of the following occur: wound [...] to walk without your walker and your healthcare or medical until the therapist checks you the following [...] and/or laxatives as directed. You may take nljx-dxn-xntdlqi Benadryl if itching occurs without a rash or hives. Icing and elevation will help relieve pain as well, do not underestimate the power of ice and elevation. We do recommend that you stop taking narcotic pain medications by 4-6 weeks after surgery and if necessary, continue to use anti-inflammatory medications such as Mobic (meloxicam), Celebrex (celecoxib), or an chxd-vsh-cbnpfbv medication (Aleve, Motrin, Ibuprofen, etc). Driving an [...] feel free to call our office at [phone]. You are a priority of ours and we will not be upset with you if you call. We would much rather you call to confirm aspects of your recovery process as opposed to possibly hindering your recovery with inappropriate care. We are committed to providing you with the best care possible. Sarai Mendez II, MD Updated 06/23/2022[facility] Work Phone: Hospital Discharge instructions Additional Instructions Stop Eliquis on 09/16/2024[facility] Work Phone: InstructionsNot on filedocumented in this encounter [facility] filedocumented in this encounter [facility]ructionsNot on filedocumented in this encounter [facility]ructionsNot on filedocumented in this encounter [facility]InstructionsNot on filedocumented in this encounter [facility] SystemProgress note Author Sally Alex [facility] August 31, 2023 3:45pmNote Date/TimeMay 2023 10:54[place] [address] Hospitalist Progress Note Signed with Addenda Patient: Esme Kaminski MR#: [id number] : 1960 Acct:[id number] Age/Sex: 62 / M Adm Date: 4 Loc: Room: 5Z0566-2 Type: ADM IN Attending Dr: Sally Alex [...] Tablet PO 08/30/24 08:59 0.6 mg Q48HR EGALE Administration Escitalopram Oxalate 20 mg 08/31/23 09:00 [...] Syringe IV-PUSH 08/30/24 05:59 Not Given QSHIFT [facility] A&P - Hospitalist Assessment/Plan (1) Acute diverticulitis: [...] signed by DO RADHA Zavala> 08/31/23 1054 [facility] Work Phone: Reason for referral (narrative)* Reason Referral for suspect ed PMR Known OA spine, hips, knees, hands Diagnosis 1 PMR (polymyalgia rhe umatica) (M35.3) Referral Organization [facility] Referring Provider First Name Vitaliy Referring Provider Last Name Inocente Referring Provider Specialty Internal Me dicine Referred Organization [facility] Referred Provider Sarai Georges Referred Address [address] [facility] [place], [place],[address] Referral Priority Routine [employer] Other Reason for referral (narrative)* Diagnostic Procedure Only (Routine) - AuthorizedSpecialtyDiagnoses / ProceduresReferred By Contact Referred To ContactXR IMAGING Diagnoses Steroid-induced osteoporosis Procedures DXA-FOREARM SKELETON DXA BONE DENSITY STUDY 1/>SITES Heladio Alvarado MD [address] [place] [address] [place] [address] Referral IDStatusReasonStart DateExpiration DateVisits RequestedVisits [id number] Auto-Generated Referral / [facility] for referral (narrative)* Diagnostic Procedure Only (Routine) - ClosedSpecialtyDiagnoses / ProceduresReferred By ContactReferred To ContactXR IMAGING Diagnoses Steroid-induced osteoporosis Procedures DXA-FOREARM SKELETON DXA BONE DENSITY STUDY 1/>SITES Heladio Alvarado MD [address] [place] [address] [place] [address] Referral IDStatusReasonStbirmingham DateExpiration DateVisits RequestedVisits [id number] Auto-Generated Referral / [facility] for referral (narrative)* Consultation (Routine) - AuthorizedSpecialtyDiagnoses / ProceduresReferred By ContactReferred To ContactCardiology Diagnoses 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 (Multi) Procedures Follow Up In Cardiology Antonio Steele MD [address] [facility] [address] [place] [address] Antonio Steele MD [address] [facility] [address], [facility] [address] [place] [address] Referral IDStatusReasonStbirmingham DateExpiration DateVisits RequestedVisits [id number]/11/20247/ [facility] Work Phone: Rezydm for visit Narrative* Diagnostic Procedure Only (Routine) - ClosedSpecialtyDiagnoses / ProceduresReferred By ContactReferred To ContactXR IMAGING Diagnoses Steroid-induced osteoporosis Procedures DXA-FOREARM SKELETON DXA BONE DENSITY STUDY 1/SITES APPENDICLR Heladio David MD [address] [place] [address] [place] [address] Referral IDStatusReasonOcate DateExpiration DateVisits RequestedVisits [id number] Auto-Generated Referral / [facility] for visit Narrative* Auth/CertSpecialtyDiagnoses / ProceduresReferred By ContactReferred To Contact Diagnoses Atrial fibrillation, unspecified type (Multi) Atrial fibrillation, unspecified type (Multi) [I48.91] Procedures VA EXCLUSION LEFT ATRIAL APPENDAGE OPEN ANY METHOD VA PERQ CLSR TCAT L ATR APNDGE W/ENDOCARDIAL IMPLNT VA PERQ CLSR TCAT L ATR APNDGE W/ENDOCARDIAL IMPLNT LAAO (Left Atrial Appendage O[place]clusion) [place] [address] [place] [address] Phone: tel: fax: [facility] [address] [facility] [address] [place] [address] Phone: tel: fax: Referral IDStatusReasonStart DateExpiration DateVisits RequestedVisits [id number] [facility] Work Phone: Reason for visit Narrative* Imaging (Routine) - AuthorizedSpecialtyDiagnoses / ProceduresReferred By ContactReferred To ContactRadiology Diagnoses Atrial fibrillation, unspecified type (Multi) Procedures [place] [address] [place] [address] Phone: tel: fax: Referral IDStatusReasonStart DateExpiration DateVisits RequestedVisits [id number] Perform Procedure [facility] Work Phone: Chief Complaint and Reason [...] Complaint Hip pain Hip pain Chief Complaint Op/[employer] Left Shoulder Pain Mri Done At [facility] z47.1 z96.641 Flu Shot/ Bp Check 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 Cannot Have Surger Chief Complaint Op/[employer] Left Shoulder Pain Mri Done At [facility] z47.1 z96.641 Flu Shot/ Bp Check 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 Cannot Have Surger Z47.1/Z96.641 T84.84XA Z96.652 M79.662 Chief Complaint Flu Shot/ Bp Check 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 Cannot Have Surger Z47.1/Z96.641 [...] Visit Admit Date ASHD (arteriosclerotic heart disease) [facility] 2024 1:11pm GENESIS (generalized anxiety disorder) [...] Visit Admit Date ASHD (arteriosclerotic heart disease) [facility] 2024 1:11pm GENESIS (generalized anxiety disorder) [...] Visit Admit Date ASHD (arteriosclerotic heart disease) [facility] 2024 1:11pm GENESIS (generalized anxiety disorder) [...] Admit Date ASHD (arteriosclerotic heart disease) [facility] 2024 1:11pm GENESIS (generalized anxiety disorder) [...] Admit Date ASHD (arteriosclerotic heart disease) [facility] 2024 1:11pm GENESIS (generalized anxiety disorder) [...] m Chest Pain August 12, 2024 3:23pm [facility]: Chest Pain-HIGH RISK August 19 4:09pm Reason for Visit Admit Date ASHD (arteriosclerotic heart disease) [facility] 2024 1:11pm GENESIS (generalized anxiety disorder) [...] 06, 2024 11:36am ASHD (arteriosclerotic heart disease) [place] y 2024 12:48pm Atrial fibrillation August 11, [...] m Chest Pain August 12, 2024 3:23pm [facility]: Chest Pain-HIGH RISK August 19 4:09pm afib [...] m Chest Pain August 12, 2024 3:23pm [facility]: Chest Pain-HIGH RISK August 19 4:09pm afib [...] m Chest Pain August 12, 2024 3:23pm [facility]: Chest Pain-HIGH RISK August 19 4:09pm afib [...] m Chest Pain August 12, 2024 3:23pm [facility]: Chest Pain-HIGH RISK August 19 4:09pm afib [...] 15, 2024 10:51am Other spondylosis with radiculopathy, [facility] December 15, 2024 10:51am [...] 15, 2024 10:51am Other spondylosis with radiculopathy, [facility] December 15, 2024 10:51am Acute bronchitis due to other specified organisms December 26, 2024 9:33am Rib fracture December 26, 2024 9:33am Laceration of leg excluding thigh, with complication December 26, 2024 9:33am Cellulitis of leg without foot, left Sep tember 2024 9:33am Low back pain January 05, 2025 9:45am Other chronic pain January 05, 2025 9:45am Other spondylosis with radiculopathy, [facility] January 05, 2025 9:45am [...] 15, 2024 10:51am Other spondylosis with radiculopathy, [facility] December 15, 2024 10:51am Acute bronchitis due to other specified organisms December 26, 2024 9:33am Rib fracture December 26, 2024 9:33am Laceration of leg excluding thigh, with complication December 26, 2024 9:33am Cellulitis of leg without foot, left Sep tember 2024 9:33am Low back pain January 05, 2025 9:45am Other chronic pain January 05, 2025 9:45am Other spondylosis with radiculopathy, [facility] January 05, 2025 9:45am [...] tember 2024 9:33am Other spondylosis with radiculopathy, [facility] January 05, 2025 9:45am [...] M54.50 January 27, 2025 8:52pm MRI RESULTS [facility] January 29, 2025 1 0:02am Reason for Visit Admit Date Persistent atrial fibrillation December 09, 2024 8:11am Other spondylosis with radiculopathy, [facility] December 15, 2024 10:51am Low back pain December 15, 2024 10:51am Other chronic pain December 15, 2024 10:51am Acute bronchitis due to other specified organisms December 26, 2024 9:33am Rib fracture December 26, 2024 9:33am Laceration of leg excluding thigh, with complication December 26, 2024 9:33am Cellulitis of leg without foot, left Sep tember 2024 9:33am Other spondylosis with radiculopathy, [facility] January 05, 2025 9:45am [...] M54.50 January 27, 2025 8:52pm MRI RESULTS [facility] January 29, 2025 1 0:02am back pain [...] M54.50 January 27, 2025 8:52pm MRI RESULTS [facility] January 29, 2025 1 0:02am back pain January 29, 2025 5 :26pm Back Issues/ER f/u-HIGH RISK January 1:53pm Bump on L Wrist February 17, 2025 3:01pm Reason for Visit Admit Date Persistent atrial fibrillation December 09, 2024 8:11am Low back pain December 15, 2024 10:51am Other chronic pain December 15, 2024 10:51am Other spondylosis with radiculopathy, [facility] December 15, 2024 10:51am Acute bronchitis due to other specified organisms December 26, 2024 9:33am Rib fracture December 26, 2024 9:33am Laceration of leg excluding thigh, with complication December 26, 2024 9:33am Cellulitis of leg without foot, left Sep tember 2024 9:33am Low back pain January 05, 2025 9:45am Other chronic pain January 05, 2025 9:45am Other spondylosis with radiculopathy, [facility] January 05, 2025 9:45am [...] 2025 1 0:02am Other spondylosis with radiculopathy, [facility] January 29, 2025 10:02am ASHD (arteriosclerotic [...] M54.50 January 27, 2025 8:52pm MRI RESULTS [facility] January 29, 2025 1 0:02am back pain [...] 15, 2024 10:51am Other spondylosis with radiculopathy, [facility] December 15, 2024 10:51am Acute bronchitis due to other specified organisms December 26, 2024 9:33am Rib fracture December 26, 2024 9:33am Laceration of leg excluding thigh, with complication December 26, 2024 9:33am Cellulitis of leg without foot, left Sep tember 2024 9:33am Low back pain January 05, 2025 9:45am Other chronic pain January 05, 2025 9:45am Other spondylosis with radiculopathy, [facility] January 05, 2025 9:45am [...] No January 25, 2017 1:08pm Date ActivatedDate ClzzcgmixqeJclkkpvl08/22/2024 9:31 AMQuestionAnswerComments Plan of Care:* Code Status Discussion Completed Decision Maker:* Patient Date ActivatedDate BgiyfugqcgpKttbfxmf38/22/2024 9:31 AMQuestionAnswerComments Plan of Care:* Code Status Discussion Completed Decision Maker:* Patient Reason for Referral SpecialtyDiagnoses / ProceduresReferred By ContactReferred To Contact Diagnoses Persistent atrial fibrillation ([facility]) Procedures Cardioversion Sarai Barry MD [address] [place] [address] Referral IDStatusReasonStart DateExpiration DateVisits RequestedVisits [id number] Review/[id number] / ProceduresReferred By ContactReferred To Contact Diagnoses 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 (Multi) Procedures ECG 12 Lead Antonio Steele MD [address] [facility] 2, [place] [address] [place] [address] Referral IDStatusReasonStart DateExpiration DateVisits RequestedVisits [id number]/19/20244/[id number] / Procedures Referred By ContactReferred To ContactCardiology Diagnoses 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 (Multi) 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 of anticoagulant therapy Procedures Cardioversion External Antonio Steele MD [address] [facility] 2, [place] [address] [place] [address] Referral IDStatusReasonStart DateExpiration DateVisits RequestedVisits [id number] Review/[id number] IDStatusReasonStart DateExpiration DateVisits RequestedVisits [id number]/19/[id number] / ProceduresReferred By ContactReferred To Contact Cardiology Diagnoses 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 (Multi) Procedures Follow Up In Cardiology Antonio Steele MD [address] [facility] 2, [place] [id number] Antonio Steele MD [address] [place] [address] 2, [place] [phone] Referral IDStatusReasonStart DateExpiration DateVisits RequestedVisits [id number]/19/20244/ Reason *FU 11/[address] r efer to dr pineda for rheumatology. labs with Dr Brower. Saw [facility], wants second opinion Diagnosis 1 Multiple joint pain (M25.50) Referral Organization [facility] Referring Provider First Name Melinda Referring Provider Last Name Luba Referring Provider Specialty Nurse Pract itioner Referred Organization [facility] Referred Provider Heladio Pineda Referred Address [address] [place], [place],[address] Referred Provider Specialty Internal Med icine Referral [...] 1 Tongue ulceration (K 14.0) Referral Organization [facility] Inocente [facility] C neyda Referring Provider First Name Vitaliy Referring Provider Last Name Inocente Referring Provider Specialty Internal Ma dicargenis Referred Organization [facility] Referred Provider BobotuRadha rosas Referred Address ,[place], [place],[address] Referred Provider Specialty Ear, Nose an d [...] or prosecute any alcohol or drug abuse patient.[facility] CenterIn the event this information is protected by the Federal Confidentiality of Alcohol and Drug Abuse Patient Records regulations: The Federal rules restrict any use of the information to criminally investigate or prosecute any alcohol or drug abuse patient.[facility] CenterIn the event this information is protected by the Federal Confidentiality of Alcohol and Drug Abuse Patient Records regulations: The Federal rules restrict any use of the information to criminally investigate or prosecute any alcohol or drug abuse patient.[facility] CenterIn the event this information is protected by the Federal Confidentiality of Alcohol and Drug Abuse Patient Records regulations: The Federal rules restrict any use of the information to criminally investigate or prosecute any alcohol or drug abuse patient.[facility] CenterIn the event this information is protected by the Federal Confidentiality of Alcohol and Drug Abuse Patient Records regulations: The Federal rules restrict any use of the information to criminally investigate or prosecute any alcohol or drug abuse patient.[facility] CenterIn the event this information is protected by the Federal Confidentiality of Alcohol and Drug Abuse Patient Records regulations: The Federal rules restrict any use of the information to criminally investigate or prosecute any alcohol or drug abuse patient.[facility] CenterIn the event this information is protected by the Federal Confidentiality of Alcohol and Drug Abuse Patient Records regulations: The Federal rules restrict any use of the information to criminally investigate or prosecute any alcohol or drug abuse patient.[facility] CenterIn the event this information is protected by the Federal Confidentiality of Alcohol and Drug Abuse Patient Records regulations: The Federal rules restrict any use of the information to criminally investigate or prosecute any alcohol or drug abuse patient.[facility] CenterIn the event this information is protected by the Federal Confidentiality of Alcohol and Drug Abuse Patient Records regulations: The Federal rules restrict any use of the information to criminally investigate or prosecute any alcohol or drug abuse patient.[facility] CenterIn the event this information is protected by the Federal Confidentiality of Alcohol and Drug Abuse Patient Records regulations: The Federal rules restrict any use of the information to criminally investigate or prosecute any alcohol or drug abuse patient.[facility] CenterIn the event this information is protected by the Federal Confidentiality of Alcohol and Drug Abuse Patient Records regulations: The Federal rules restrict any use of the information to criminally investigate or prosecute any alcohol or drug abuse patient.[facility] CenterIn the event this information is protected by the Federal Confidentiality of Alcohol and Drug Abuse Patient Records regulations: The Federal rules restrict any use of the information to criminally investigate or prosecute any alcohol or drug abuse patient.[facility] CenterIn the event this information is protected by the Federal Confidentiality of Alcohol and Drug Abuse Patient Records regulations: The Federal rules restrict any use of the information to criminally investigate or prosecute any alcohol or drug abuse patient.[facility] CenterIn the event this information is protected by the Federal Confidentiality of Alcohol and Drug Abuse Patient Records regulations: The Federal rules restrict any use of the information to criminally investigate or prosecute any alcohol or drug abuse patient.[facility] CenterIn the event this information is protected by the Federal Confidentiality of Alcohol and Drug Abuse Patient Records regulations: The Federal rules restrict any use of the information to criminally investigate or prosecute any alcohol or drug abuse patient.[facility] CenterIn the event this information is protected by the Federal Confidentiality of Alcohol and Drug Abuse Patient Records regulations: The Federal rules restrict any use of the information to criminally investigate or prosecute any alcohol or drug abuse patient.[facility] CenterIn the event this information is protected by the Federal Confidentiality of Alcohol and Drug Abuse Patient Records regulations: The Federal rules restrict any use of the information to criminally investigate or prosecute any alcohol or drug abuse patient.[facility] CenterIn the event this information is protected by the Federal Confidentiality of Alcohol and Drug Abuse Patient Records regulations: The Federal rules restrict any use of the information to criminally investigate or prosecute any alcohol or drug abuse patient.[facility] REASON FOR VISIT (unrecogniz ed section and content) ReasonCommentsConsultPainOngoing generalized pain.ReasonCommentsResultsReason CommentsRefill RequestReasonCommentsFollow UpReasonCommentsResultsOrdersReason CommentsNew Patient NpoveDhzi-mohn-icqvgfaih care, previous [facility] patient SpecialtyDiagnoses / ProceduresReferred By ContactReferred To Contact Diagnoses 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 (Multi) Procedures ECG 12 Lead Antonio Steele MD [address] [place] [address], [place] [phone] Referral IDStatusReasonStart DateExpiration DateVisits RequestedVisits [id number]/19/20244/19/[id number] visitSpecialty Diagnoses / ProceduresReferred By ContactReferred To Contact Diagnoses 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 (Multi) Procedures ECG 12 Lead Antonio Steele MD [address] [facility] 2, [address] [address] Referral IDStatusReasonStart DateExpiration DateVisits RequestedVisits [id number]/19/20244/19/[id number] DateCommentsRefill Khcbnwd38/05/2024ReasonCommentsFollow-upWatchman 01/29/24ReasonCommentsFollow-up 3 monthSpecialtyDiagnoses / ProceduresReferred By ContactReferred To Contact Cardiology Diagnoses 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 (Multi) Procedures Follow Up In Cardiology Antonio Steele MD [address] [facility] 2, [address] [place] [phone] Antonio Steele MD [address] [facility] 2, [address] [place], [place] [id number] Referral IDStatusReasonStart DateExpiration DateVisits RequestedVisits [id number]/19/20244/750310ZurhksMdsuqarcfbishwccTdqnaxuxg Diagnoses / ProceduresReferred By ContactReferred To ContactCardiology Diagnoses Persistent atrial fibrillation (Multi) Antonio Steele MD [address] [facility] 2, [place] [address] [place] [address] [place] [address] [place] [address] Referral IDStatusReasonStart DateExpiration DateVisits RequestedVisits [id number] Specialty Services Required /[id number] RefillReasonCommentsFollow-up6M and [facility] 4Coronary Artery DiseaseHypertensionAtrial FibrillationHospital Follow-upReasonOnset DateCommentsEP Surgery (CDVN)4ReasonOnset Date CommentsEP Surgery ( Pt Education)4ReasonCommentsFollow UpPainOngoing generalized pain.ReasonCommentsFollow-up6 month follow up for cardiomyopathy SpecialtyDiagnoses / ProceduresReferred By ContactReferred To ContactCardiology Diagnoses Multi-vessel coronary artery stenosis Procedures Follow Up In Cardiology Antonio Steele MD [address] [facility] 2, [place] [phone] Phone: tel: fax: Antonio Steele MD [address] [facility] 2, [place] [address] Phone: tel: fax: Referral IDStatusReasonStbirmingham DateExpiration DateVisits RequestedVisits [id number]/7/202411/7/035294QxbvfmKhrggphyImfocwPmfpnoadfia ReasonCommentsOsteoarthritisCPPDPMRReasonCommentsCPPDGoutArthritisReasonComments Follow-up3 months dccSpecialtyDiagnoses / ProceduresReferred By ContactReferred To ContactCardiology Diagnoses Multi-vessel coronary artery stenosis Procedures Follow Up In Cardiology Antonio Steele MD [address] [place] [address] 2, [place] [address] Phone: tel: fax: Antonio Steele MD [address] [place] [address] 2, [place] [address] Phone: tel: fax: Referral IDStatusReasonStart DateExpiration DateVisits RequestedVisits [id number]/16/20255/16/011738CetzehYzedqqnnIfjbor-mdTXY visit SpecialtyDiagnoses / ProceduresReferred By ContactReferred To Contact Diagnoses History of cardioversion Abnormal electrocardiogram (ECG) (EKG) Persistent atrial fibrillation (Multi) Procedures ECG 12 Lead Antonio Steele MD [address] [facility] 2, [place] [phone] Phone: tel: fax: Referral IDStatusReasonStart DateExpiration DateVisits RequestedVisits [id number]/5/20259/793634QmgoabJdcpvleaGolvye-fwVGT results SpecialtyDiagnoses / ProceduresReferred By ContactReferred To ContactCardiology Diagnoses Multi-vessel coronary artery stenosis Procedures Follow Up In Cardiology Antonio Steele MD [address] [facility] 2, [place] [phone] Phone: tel: fax: Antonio Steele MD [address] [facility] 2, [place] [address] Phone: tel: fax: Referral IDStatusReasonStart DateExpiration DateVisits RequestedVisits [id number]/13/20258/13/[id number] Pain Care Teams (unrecognized sec tion and [...] Primary Care Provider Active Start: 2024 SERGIO Araiza-Barbie ProviderActiveStart: 2024 Team Status: Active Member [...] 11, 2024 End: August 13ace Amaya , MELT HOUSE DRAG OPERATOR-BCOther ProviderActiveStart: August 11, 2024 End: August 13, [...] MDOther ProviderActiveStart: August 12, 2024 Nicolle Amaya MELT HOUSE DRAG OPERATOR-BCOther ProviderActiveStart: August 12, 2024 Ada Woodruff [...] ProviderActiveStart: August 11, 2024 End: August 13, 2024oJhn Segovia ProviderActiveStart: August 11, 2024 End: August 13CLAUDIA [...] ProviderActiveStart: August 12, 2024 Nicolle Amaya , MELT HOUSE DRAG OPERATOR-BCOther ProviderActiveStart: August 12, 2024 Ada Woodruff [...] Provider Active Start: April 22, 2024 Marcela rOtiz CMAAttending ProviderActiveStart: April 22, 2024 Team Status: [...] Start DateEnd Date Vitaliy Brower, [address] [place] [address] PCP - GeneralInternal Medicine01/05/23 Melinda Verduzco, SALES REPRESENTATIVE EDUCATION COURSES [address] [place] [address] ReferringOrthopedics11/24/22Team MemberRelationshipSpecialtyStart DateEnd Date Vitaliy Brower, DO [address] [facility] [place] [address] PCP - GeneralInternal Medicine01/05/23 Melinda Verduzco, SALES REPRESENTATIVE EDUCATION COURSES [address] [place] [address] ReferringOrthopedics11/24/22Team MemberRelationshipSpecialtyStart DateEnd Date Vitaliy Brower, [address] [facility] [place] [address] PCP - GeneralInternal Medicine01/05/23 Melinda Verduzco, SALES REPRESENTATIVE EDUCATION COURSES [address] [place] [address] ReferringOrthopedi11/24/22Team MemberRelationshipSpecialtyStart DateEnd Date Vitaliy Brower, [address] [facility] [place] [address] PCP - GeneralInternal Medicine01/05/23 Melinda Verduzco, SALES REPRESENTATIVE EDUCATION COURSES [address] [place] [address] ReferringOrthopejacobs medical center11/24/22 Team Status: Inactive Member Role Status Dates [...] DateEnd Date Vitaliy Brower DO [address] [place] [address] PCP - GeneralInternal Medicine01/05/23 Melinda Verduzco CNP [address] [facility] [address] ReferringOrthopedics11/24/22Team MemberRelationshipSpecialtyStart DateEnd Date Vitaliy Brower, DO [address] [facility] [place] [address] PCP - GeneralInternal Medicine01/05/23 Melinda Verduzco, SALES REPRESENTATIVE EDUCATION COURSES [address] [place] [address] ReferringOrthopedics11/24/22Team MemberRelationshipSpecialtyStart DateEnd Date Vitaliy Brower, DO [address] [place] [address] PCP - GeneralInternal Medicine01/05/23 Melinda Verduzco, SALES REPRESENTATIVE EDUCATION COURSES [address] [place] [address] ReferringOrthopedi11/24/22Team MemberRelationshipSpecialtyStart DateEnd Date Vitaliy Brower DO [address] [place] [address] PCP - GeneralInternal Medicine07/12/23Team MemberRelationshipSpecialtyStart Date End Date Vitaliy Brower DO PCP - GeneralInternal Medicine07/12/23Team MemberRelationshipSpecialtyStart Date End Date Vitaliy Brower DO [address] [place] [address] PCP - GeneralInternal Medicine01/05/23 Melinda Verduzco, SALES REPRESENTATIVE EDUCATION COURSES [address] [place] [address] ReferringOrthopedics11/24/22Team MemberRelationshipSpecialtyStart DateEnd Date Vitaliy Brower DO [address] [place] [address] PCP - GeneralInternal Medicine01/05/23 Melinda Verduzco, SALES REPRESENTATIVE EDUCATION COURSES [address] [place] [address] ReferringOrthopedics11/24/22Team MemberRelationshipSpecialtyStart DateEnd Date Vitaliy Brower DO [address] [place] [address] PCP - GeneralInternal Medicine01/05/23 Melinda Verduzco, GEAR ROOM KEEPER.SALES REPRESENTATIVE EDUCATION COURSES [address] [place] [address] ReferringOrthopejacobs medical center11/24/22 Team Status: Active Member Role Status Dates [...] Start: January 24, 2024 End: January 24, 2024StRosa Gutierrez ProviderActiveStart: January 24, 2024 End: January 24, 2024Team MemberRelationshipSpecialtyStart DateEnd Date Vitaliy Brower DO PCP - [facility]07/12/23 Team Status: Inactive Member Role Status Dates Vitaliy Brower DO Primary Care Provider Active Start: February 12, 2024 End: February 11Rosa Fisher ProviderActiveStart: February 12, 2024 End: February 12, 2024Team MemberRelationshipSpecialtyStart DateEnd Date Vitaliy Brower DO PCP - [facility]07/12/23 Team Status: Inactive Member Role Status Dates Vitaliy Brower DO Primary Care Provider Active Start: February 18, 2024 End: February 18, 2024Sukhjinder Montesinos DOAttfatimah ProviderActiveStart: February 18, 2024 End: February 18, 2024Team MemberRelationshipSpecialtyStart DateEnd Date Vitaliy Brower DO [facility] - [facility]07/12/23Team MemberRelationshipSpecialtyStart Date End Date Vitaliy Brower DO PCP - [facility]07/12/23Team MemberRelationshipSpecialtyStart Date End Date Vitaliy Brower DO [address] [place] [address] PCP [place]01/08/18 Team Status: Inactive Member Role Status Dates Vitaliy Brower DO Primary Care Provide r, Attending Provider Active Start: March 17, 2024 End: March 17, 2024Team MemberRelationshipSpecialtyStart DateEnd Date Vitaliy Brower DO [address] [place] [address] PCP - Ejofnnw27/2/18Team MemberRelationshipSpecialtyStart DateEnd Date Vitaliy Brower, DO [address] [place] [address] PCP - Ebdbyet64/2/18Team MemberRelationshipSpecialtyStart DateEnd Date Vitaliy Brower, DO [address] [facility] [place] [address] PCP - Rypgfoo19/2/18Team MemberRelationshipSpecialtyStart DateEnd Date Vitaliy Brower, DO [address] [place] [address] PCP - Drzgkzd10/2/18Team MemberRelationshipSpecialtyStart DateEnd Date Vitaliy Brower, DO [address] [place] [address] PCP - GeneralInternal Medicine05/07/24Team MemberRelationshipSpecialtyStart Date End Date Vitaliy Brower, DO [address] [place] [place] [address] PCP - GeneralInternal Medicine01/05/23 Melinda Verduzco APRN.SALES REPRESENTATIVE EDUCATION COURSES [address] [place] [address] ReferringOrthopedics11/24/22Team MemberRelationshipSpecialtyStart DateEnd Date Vitaliy Brower, DO [address] [place] [address] PCP - GeneralInternal Medicine01/05/23 Melinda Verduzco APRN.SALES REPRESENTATIVE EDUCATION COURSES [address] [place] [address] ReferringOrthopedi11/24/22 Team Status: Active Member Role Status [...] DOEmergency ProviderActiveStart: August 11, 2024 Lydia Connelly MDAjohn douglas [facility] Provider, Attending ProviderActiveStart: August 11, 2024 Team MemberRelationshipSpecialtyStart DateEnd Date Vitaliy Brower DO [address] [place] [address] PCP - GeneralInternal Medicine05/07/24Team MemberRelationshipSpecialtyStart Date End Date Vitaliy Brower DO [address] [place] [address] PCP - GeneralInternal Medicine01/05/23 Melinda Verduzco APRN.SALES REPRESENTATIVE EDUCATION COURSES [address] [address] ReferringOrthkaiser foundation hospital11/24/22Team MemberRelationshipSpecialtyStart DateEnd Date Vitaliy Brower DO [address] [place], [place] [address] PCP - GeneralInternal Medicine01/05/23 Melinda Verduzco, GEAR ROOM KEEPER.SALES REPRESENTATIVE EDUCATION COURSES [address] [place] [address] ReferringOrthopedics11/24/22Team MemberRelationshipSpecialtyStart DateEnd Date Vitaliy Brower DO [address] [place] [address] PCP - GeneralInternal Medicine01/05/23 Melinda Verduzco, GEAR ROOM KEEPER.SALES REPRESENTATIVE EDUCATION COURSES [address] [place] [address] ReferringOrthopedi11/24/22Team MemberRelationshipSpecialtyStart DateEnd Date Vitaliy Brower DO [address] [place] [address] PCP - GeneralInternal Medicine01/05/23 Melinda Verduzco, GEAR ROOM KEEPER.SALES REPRESENTATIVE EDUCATION COURSES [address] [place] [address] ReferringOrthopejacobs medical center11/24/22 Team Status: Active Member Role Status Dates Vitaliy Brower DO Primary Care Provider Active Start: October 23, 2024 Sarai Mendez II, MDAttending ProviderActiveStart: October 23, 2024 Team MemberRelationshipSpecialtyStart DateEnd Date Vitaliy Brower DO [address] [place] [address] PCP - GeneralInternal Medicine05/07/24Team MemberRelationshipSpecialtyStart Date End Date Vitaliy Brower DO [address] [place] [address] PCP - [facility] Medicine05/07/24Team MemberRelationshipSpecialtyStart Date End Date InocenteVitaliyDO [address] [place] [address] PCP - [facility]05/07/24 Team Status: Inactive Member Role Status Dates [...] Date Vitaliy Brower DO [address] [place] [address] [facility]24 Team Status: Inactive Member Role/Relationship Status [...] section and content) DATE CREATED AUTHOR 08/05/2022 [facility] DATE CREATED AUTHOR AUTHOR'S ORGANIZ ATION 06/13/2023 [facility] DATE CREATED AUTHOR AUTHOR'S ORGANIZ ATION 06/29/2023 [facility] DATE CREATED AUTHOR AUTHOR'S ORGANIZ ATION 09/20/2023 [facility] DATE CREATED AUTHOR AUTHOR'S ORGANIZ ATION 08/25/2024 [facility] DATE CREATED AUTHOR AUTHOR'S ORGANIZ ATION 09/29/2024 [facility] DATE CREATED AUTHOR AUTHOR'S ORGANIZ ATION 12/23/2024 [facility] DATE CREATED AUTHOR AUTHOR'S ORGANIZ ATION 02/01/2025 [facility] DATE CREATED AUTHOR AUTHOR'S ORGANIZ ATION 02/04/2025 [facility] DATE CREATED AUTHOR AUTHOR'S ORGANIZ ATION 02/16/2025 [facility] DATE CREATED AUTHOR AUTHOR'S ORGANIZ ATION 02/19/2025 [facility] Scheduled Active and Recently Administ [...] BE BASED ON THE PRIMARY CLINICAL RECORDS. [facility]. provides no warranty or guarantee of the accuracy or completeness of information in this document.
[2025-04-06] MEDS: ACETAMINOPHEN 325 MG TABLET 650 MG PO (21:00)
[2025-04-06] MEDS: HYDROMORPHONE HCL 1 MG/ML CARTRIDGE IV (21:00)
[2025-04-06] MEDS: 0.9 % SODIUM CHLORIDE 1,000 ML 1000 ML IV (21:00)
[2025-04-06 21:04] LABS: SARS-CoV-2 Ag NEGATIVE (NEGATIVE)
[2025-04-06 21:10] LABS: Alanine Aminotransferase 27 U/L (16-63); Albumin Globulin Ratio 0.9; Albumin Level 3.4 g/dL (3.4-5.0); Alkaline Phosphatase 141 U/L (46-116); Anion Gap 14.0; Aspartate Amino Transferase 60 U/L (15-37); Blood Urea Nitrogen 9.0 mg/dL (7.0-18.0); Calcium 10.8 mg/dL (8.5-10.1); Carbon Dioxide 27.4 mmol/L (21.0-32.0); Chloride 97 mmol/L (98-107); Estimated GFR (African America >60 (>=60 mL/min/1.73m^2); Estimated GFR (Non-African Ame >60 (>=60 mL/min/1.73m^2); Globulin 3.6 g/dL; Glucose 165 mg/dL (74-106); Potassium 3.4 mmol/L (3.5-5.1); Sodium 135 mmol/L (136-145); Total Protein 7.0 g/dL (6.4-8.2)
[2025-04-06 21:19] LABS: Lactate/Lactic Acid 2.6 mmol/L (0.4-2.0)
--- NOTE | 2025-04-06 21:22 | CT_ITS ---
[address] [address] Patient Name: ESME KAMINSKI MRN: [id number] date: 1960 Sex: M Assigned Patient Location: ER Current Patient Location: Accession/Order Number: [id number] Exam Date: 04/06/2025 22:20 Report Date: 04/06/2025 22:48 At the request of: CHLOÉ REYES MD Procedure: CT angio chest CT angio chest 04/06/2025 10:38 PM SIGN AND SYMPTOMS: ^CP, elevated d dimer CONTRAST: 100 mL of intravenous Omnipaque 350 TECHNIQUE: Multidetector CT axial slices of the chest were obtained with IV contrast. Multiplanar and 3-D reformats were performed and viewed on a separate workstation and reviewed to further define anatomy and possible pathology. CT was performed with one or more of the following dose reduction techniques: Automated exposure control, adjustment of the mA and/or kV according to patient size, or use of iterative reconstruction technique. COMPARISON: 12/17/2024. FINDINGS: Lower neck: Within normal limits. Vessels: Atherosclerotic changes are noted in the thoracic aorta, origins of the great vessels, and coronary arteries. There is no evidence of pulmonary embolism. Mediastinum and [place]: Within normal limits. Heart: There is an occlusion device within the left atrial appendage. No evidence of cardiomegaly or pericardial effusion. Airways: Within normal limits Lungs: Within normal limits. Pleura: Within normal limits. Chest Wall: Within normal limits. Upper Abdomen: The gallbladder is mildly distended with pericholecystic edema suspicious for acute cholecystitis. Bones: Degenerative changes are noted in the thoracic spine. There is evidence of prior sternotomy. CT/CT angio chest IMPRESSION: No acute cardiopulmonary pathology. No evidence of pulmonary embolism. The gallbladder is mildly distended with pericholecystic edema suspicious for acute cholecystitis. Impression dictated by: Rubio Vazquez M.D. 04/06/2025 10:48 PM Dictation Location: [place] [address] Electronically authenticated by: [id number] Y Date: 04/06/2025 22:48
[2025-04-06] MEDS: 0.9 % SODIUM CHLORIDE 1,000 ML 125 ML IV (22:39)
--- NOTE | 2025-04-06 23:08 | PC.NURSE ---
Patient is resting comfortably on cot at this time, it is noted that his spo2 dropped to 85% on room air when patient fell asleep. states thaat patient has sleep apnea and wears a cpap at home during sleep. He is started on oxygen at this time at 2L per nasal cannula and spo2 came up to 95%.
[2025-04-06 23:23] LABS: Glucose Urine UA NEGATIVE (NEGATIVE)
[2025-04-06 23:31] LABS: Reflex Lactate? Yes
[2025-04-06 23:33] LABS: Cast Seen? SEEN #/LPF (NONE SEEN); Crystals Seen? None Seen #/HPF (None Seen); Urine Culture Indicated NO
[2025-04-07 00:12] LABS: Lactate/Lactic Acid 1.4 mmol/L (0.4-2.0)
== END 2025-04-07 01:03 | disposition home or self-care (01) ==
PROVIDERS: Emergency Provider Emergency Medicine; PCP Internal Medicine
DX: E86.0 Dehydration (principal); R19.7 Diarrhea, unspecified; M54.50 Low back pain, unspecified; G89.29 Other chronic pain; I25.10 Atherosclerotic heart disease of native coronary artery without angina pectoris; Z95.1 Presence of aortocoronary bypass graft; I48.91 Unspecified atrial fibrillation; Z95.818 Presence of other cardiac implants and grafts; Z96.653 Presence of artificial knee joint, bilateral; R79.89 Other specified abnormal findings of blood chemistry; R50.9 Fever, unspecified; M79.605 Pain in left leg; M79.604 Pain in right leg
CPT/HCPCS: 36415; 71275; 80053; 81001; 83605; 84484; 85025; 85378; 87040; 87804; 87811; 93005; 93970; 96361; 96374; 96375; 99284; J1171; J2405; Q9967